=== PATIENT | female | born 1950 | race Caucasian/White ===

== ENCOUNTER → 2017-12-24 16:05 | Outpatient (CLI) | payer MEDICARE, MEDICAID, SELFPAY | PROVIDERS: Family Provider Family Medicine Geriatric Medicine; PCP Family Medicine Geriatric Medicine; Visit Provider Family Medicine Geriatric Medicine | DX: N39.0 Urinary tract infection, site not specified (principal) | CPT/HCPCS: 36415; 87086; 87088 ==

== ENCOUNTER 2018-01-06 11:30 | Observation (INO) | payer MEDICARE, MEDICAID, SELFPAY ==
[2018-01-06] VITALS (14 sets, daily range): BP systolic 150–193; BP diastolic 76–104; PULSE 76–127; RESP 15–20; TEMP 36.6–36.8; O2SAT 94–98; BMI 32.5; BMI 31.9; BMI 32.0
--- NOTE | 2018-01-06 12:09 | EKG12_ITS ---
Test Reason : CP Blood Pressure : / mmHG Vent. Rate : 076 BPM Atrial Rate : 076 BPM P-R Int : 140 ms QRS Dur : 094 ms QT Int : 394 ms P-R-T Axes : 042 -20 073 degrees QTc Int : 443 ms Normal sinus rhythm with sinus arrhythmia T wave abnormality, consider lateral ischemia Abnormal ECG Confirmed by DEON CHRISTIAN, RICHARD ([id number]), digital editor COOPER MARTINEZ ([id number] on 01/09/2018 2:05:44 PM Referred By: NOLBERTO Confirmed By:RICHARD CHAVARRIA MD
[2018-01-06 12:46] LABS: Bedside Glucose 92 mg/dL (70-110)
[2018-01-06] MEDS: 0.9% Normal Saline 1,000 ML 1000 ML IV (13:16)
--- NOTE | 2018-01-06 13:22 | ED.VISSUMM ---
- ER Visit Summary Date of Service: 01/06/18 Chief Complaint: [Dizziness] History of Present Illness: The patient is a 67 F [resents the emergency department with dizziness. She was walking around the store shopping and had 2-3 minutes where she felt like she was about to black out. She had a mild amount of chest pressure during this period but it resolved immediately. No shortness of breath. She is recently been treated with the UTI with prednisone and Keflex. She finished this a few days ago. She is otherwise been feeling well. 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 treated with radiation.] Physical Examination: [] Pressure 159/86 WN WD NAD PERRL EOMI MMM NECK supple and nontender, no masses RRR out of 6 systolic murmur rub or gallop, no peripheral edema, symmetric radial pulses CTAB no respiratory distress ABDOMEN is soft and nontender, normal bowel sounds, no distension, no rebound or guarding SKIN is warm and dry no rashes Alert and Oriented x3, CN II-XII in tact, no motor or sensory deficits, gait normal NIH is 0 No lymphadenopathy Test Results: [] Emergency Department Course and Treatment: [EKG is sinus at a rate of 76 with T-wave inversions in V4 V5 and V6. These are new changes from EKG August 2017. Patient was asymptomatic while she was in the emergency department. Screening blood work shows a leukocytosis at 14.4. She has been on prednisone. It urinary tract appears that it has cleared up. Did call cardiology at the request of the hospitalist who requested a d-dimer which was sent. She was given aspirin.] Treatment Plan: [] Disposition: [Admit] Impression: [1. Chest pain 2. Near syncope] This note was generated with [employer] dictation software. It may contain incorrect words, spelling, and punctuation that were not noted in review of the chart prior to signing ED Disposition - Plan for ED Patient: Chief Complaint: Dizziness
--- NOTE | 2018-01-06 13:25 | ED.DCSUM_ITS ---
- ER Visit Summary Date of Service: 01/06/18 Chief Complaint: [Dizziness] History of Present Illness: The patient is a 67 F [resents the emergency department with dizziness. She was walking around the store shopping and had 2- 3 minutes where she felt like she was about to black out. She had a mild amount of chest pressure during this period but it resolved immediately. No shortness of breath. She is recently been treated with the UTI with prednisone and Keflex. She finished this a few days ago. She is otherwise been feeling well. 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 treated with radiation.] Physical Examination: [] Pressure 159/86 WN WD NAD PERRL EOMI MMM NECK supple and nontender, no masses RRR out of 6 systolic murmur rub or gallop, no peripheral edema, symmetric radial pulses CTAB no respiratory distress ABDOMEN is soft and nontender, normal bowel sounds, no distension, no rebound or guarding SKIN is warm and dry no rashes Alert and Oriented x3, CN II-XII in tact, no motor or sensory deficits, gait normal NIH is 0 No lymphadenopathy Test Results: [] Emergency Department Course and Treatment: [EKG is sinus at a rate of 76 with T- wave inversions in V4 V5 and V6. These are new changes from EKG August 2017. Patient was asymptomatic while she was in the emergency department. Screening blood work shows a leukocytosis at 14.4. She has been on prednisone. It urinary tract appears that it has cleared up. Did call cardiology at the request of the hospitalist who requested a d-dimer which was sent. She was given aspirin.] Treatment Plan: [] Disposition: [Admit] Impression: [1. Chest pain 2. Near syncope] This note was generated with [employer] dictation software. It may contain incorrect words, spelling, and punctuation that were not noted in review of the chart prior to signing ED Disposition - Plan for ED Patient: Chief Complaint: Dizziness
[2018-01-06 13:33] LABS: Absolute Lymphocyte Count 5.37 X10^3/ul (0.83-4.51); Absolute Neutrophil Count 7.8 X10^3/uL (2.0-7.7); Basophil# 0.03 X10^3/uL; Basophil% 0.2 % (0-1); Differential Indicated SCAN CRITERIA MET; Eosinophil# 0.07 X10^3/uL; Eosinophils% 0.5 % (0-5); Hemoglobin 14.6 g/dl (12.0-15.0); Lymphocyte # 5.37 X10^3/ul (4.0); Lymphocyte % 37.3 % (19-41); Mean Corp Hgb Conc 32.4 g/gl (32-36); Mean Corpuscular Hgb 33.2 pg (27.0-32.0); Mean Corpuscular Volume 102.3 fL (81-99); Monocyte# 1.09 X10^3/uL; Monocyte% 7.6 % (0-10); Neutrophil # 7.78 X10^3/uL (2.7-7.7); Neutrophil % 54.1 % (47-70); POSITIVE COUNT NO; POSITIVE DIFFERENTIAL YES; POSITIVE MORPHOLOGY NO; Platelet Count 336 K/mm3 (150-450); RBC Distribution Width SD 52.4 fl (35.1-43.9); White Blood Count 14.4 K/mm3 (4.4-11.0)
[2018-01-06 13:44] LABS: ALB/GLOB Ratio 0.7 RATIO (0.9-2.4); AST(SGOT) 10 U/L (15-37); Alanine Aminotransfer ALT/SGPT 21 U/L (13-56); Albumin, Serum 3.2 g/dL (3.2-5.0); Alkaline Phosphatase 95 U/L (45-117); Anion Gap 8 (5-15); BUN 11 mg/dL (7-18); BUN/Creat Ratio 11.5 RATIO (10-20); Calcium,Total 8.7 mg/dL (8.5-10.1); Chloride 105 mmol/L (98-107); Creatinine, Serum 0.95 mg/dL (0.55-1.02); EST Glomerular Filtration Rate 63 mL/min (>60); Est Glom Filt Rate - Afr Amer 76 mL/min (>60); Estimated Creatinine Clearance 59.56 ml/min; Globulin 4.7 g/dL (2.2-4.2); Glucose 91 mg/dL (74-106); Potassium 3.5 mmol/L (3.5-5.1); Protein, Total 7.9 g/dL (6.4-8.2); Sodium Level 141 mmol/L (136-145)
[2018-01-06 13:57] LABS: Bacteria 0 SEEN /hpf (None Seen); Mucous, Urine 0 SEEN /hpf (<or=2+); White Blood Cells 0 SEEN /hpf (0-5)
[2018-01-06 13:58] LABS: Color, Urine Straw (Yellow); Glucose, Dipstick Normal (Normal); Ketone-Dipstick Negative (Negative); Leukocyte Esterase-Dipstick Negative /ul (Negative); Nitrite-Dipstick Negative (Negative); Occult Blood-Urine 150 /ul (Negative); Protein-Dipstick Negative (Negative); Urine Bilirubin Dipstick Negative (Negative); Urine Clarity Clear (Clear); Urine Urobilinogen Normal (Normal)
[2018-01-06 14:06] LABS: Red Blood Cells-Urine 0-5 SEEN /hpf (0-5); Squamous Epithelial Cells - UA 0-5 SEEN /hpf (5-10)
--- NOTE | 2018-01-06 15:03 | EKG12_ITS ---
Test Reason : REPEAT Blood Pressure : / mmHG Vent. Rate : 074 BPM Atrial Rate : 074 BPM P-R Int : 144 ms QRS Dur : 092 ms QT Int : 390 ms P-R-T Axes : 045 -09 -64 degrees QTc Int : 432 ms Normal sinus rhythm T wave abnormality, consider lateral ischemia Abnormal ECG Confirmed by PUMA KRAUSE ([id number]), city editor COOPER MARTINEZ ([id number]) on 01/10/2018 1:15:25 PM Referred By: JESSICA Confirmed By:PUMA KRAUSE
--- NOTE | 2018-01-06 15:09 | PCM.HP.STD ---
Problem List (1) Chest pain Status: Acute Qualifiers: Ischemic chest pain type: unspecified angina pectoris type (2) HTN (hypertension) Status: Chronic Qualifiers: Hypertension type: essential hypertension Qualified Code(s): I10 - Essential (primary) hypertension History of Present Illness Date of Admission: 01/06/18 Chief Complaint: Chest pain The patient is a 67 year old F past medical history of hypertension, frequent UTI, history of Dunbar's palsy who comes in with complaints of dizziness and feeling of passing out. Patient states that she was out in the stores doing groceries, when she felt waves of dizziness and felt like she was going to pass out. She denied any chest discomfort or palpitations or leg swelling previously to that. This is her first episode of such feeling. She had recently seen her primary care doctor a week ago and was asked to continue her medications for elevated blood pressure. Denies any cardiac history but states she was told she has a heart murmur. Denied any history of orthopnea or PND or recent travel. Just completed a course of antibiotics for UTI and also completed a course of prednisone for unspecified reason, according to patient. Vitals on arrival to the ED showed temperature of 90 8.3F, heart rate of 84, blood pressure was elevated at 193/96, respiratory rate was 16 oxygen saturation was 97% on room air. Her labs show WBC count of 14.4, MCV of 102.3, Hb of 14.6, platelets of 236, her BMP was essentially normal, d-dimer was pending at time of dictating this note. Her EKG showed normal sinus rhythm with nonspecific T-wave inversions in leads III, aVF, V3, V4, V5, V6. Past Medical History Past Medical History (Chronic Problems): Chronic Problems HTN (hypertension) (Chronic) Mild intermittent asthma (Chronic) Allergies pravastatin Allergy (Verified 08/22/17 10:41) Chest tightness sulfamethoxazole [From Bactrim] Allergy (Verified 08/22/17 10:41) Shortness of breath trimethoprim [From Bactrim] Allergy (Verified 08/22/17 10:41) Shortness of breath methylprednisolone Adverse Reaction (Verified 01/06/18 11:32) Pain in joints flu vaccine Allergy (Uncoded 08/22/17 10:41) Other novacaine Allergy (Uncoded 08/22/17 10:41) Unknown Home Medications: Ambulatory Orders Medication Instructions Recorded Albuterol IH (ProAir) [Proair Hfa] 2 puff INHALATION Q6H PRN PRN 09/09/13 Lisinopril [Zestril] 40 mg PO DAILY 02/12/15 Ergocalciferol [Vitamin D] 50,000 unit PO TH 01/06/18 Surgical History: hysterectomy, - - Cholecystectomy. 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 Denies: Chest Pain, Claudication, Chest Pressure, Orthopnea, Palpitations, Paroxysmal Noc. Dyspnea, Syncope Respiratory: Denies: Cough, Shortness of breath at rest, Sputum production Gastrointestinal: Denies: Abdominal Pain, Constipation, Hematemesis, Nausea, Vomiting Genitourinary: Denies: Dysuria, Frequency, Incontinence Gynecological: Denies: Vaginal discharge, Vaginal itching Musculoskeletal: Denies: Joint Pain, Joint stiffness, Joint swelling, Joint Tenderness Skin: Denies: Dryness, Pruritis, Rash, Wounds Neurological: Denies: Difficulty swallowing, Focal weakness, Numbness, Tingling, Tremor Psychiatric: Denies: Anxiety, Depression, Homicidal Ideations, Suicidal Ideations Endocrine: Denies: Change in Body Habitus, Heat/ Cold Intolerance Hematologic/ Lymphatic: Denies: Easy Bruising, Easy Bleeding VTE Information - Inpt Only VTE Present on Admission: No VTE Pharm Prophylaxis ordered?: Yes Patient Problems: Active and Suspected Problems Chest pain (Acute) - Physical Exam General: Alert, Oriented x3, Cooperative, No apparent distress HEENT: Atraumatic, PERRLA, EOMI, Normocephalic Oral: Moist Mucosa Neck: Supple Lungs: Clear to auscultation, Normal air movement Cardiovascular: Regular rate, Regular Rhythm, Normal S1, Normal S2, No murmurs Abdomen: Bowel Sounds Present, Soft, Non Tender, Non-Distended, No Hepato-splenomegaly Extremities: No edema Skin: No rashes, No breakdown Musculoskeletal: No Tenderness to Palpation of Joints or Extremities Lymphatic: No Cervical, Supraclavicular, or Inguinal Adenopathy Neurological: Cranial nerves II-XII grossly intact Psych/Mental Status: Normal Affect, Appropriate Vital Signs Temp Pulse Resp BP Pulse Ox 98.3 F 78 16 150/76 H 96 01/06/18 11:33 01/06/18 14:43 01/06/18 12:54 01/06/18 14:43 01/06/18 14:43 Oxygen Delivery Method Room Air Weight: 97 kg Body Mass Index (BMI) 32.5 Finger Stick Blood Glucose 92 Laboratory Tests Past 24 Hrs 01/06/18 01/06/18 01/06/18 11:55 11:55 13:49 WBC 14.4 H RBC 4.40 Hgb 14.6 Hct 45.0 MCV 102.3 H MCH 33.2 H MCHC 32.4 RDW 14.0 RDW Differential 52.4 H Plt Count 336 MPV 11.0 Immature Gran % (Auto) 0.300 Neut % (Auto) 54.1 Lymph % (Auto) 37.3 Hopkins % (Auto) 7.6 Eos % (Auto) 0.5 Baso % (Auto) 0.2 Absolute Neuts (auto) 7.8 H Absolute Lymphs (auto) 5.37 H Total Counted Not Reportable Differential Comment Sodium 141 Potassium 3.5 Chloride 105 Carbon Dioxide 28.0 Anion Gap 8 BUN 11 Creatinine 0.95 Estim Creat Clear Calc 59.56 Est GFR (MDRD) Af Amer 76 Est GFR (MDRD) Non-Af 63 BUN/Creatinine Ratio 11.5 Glucose 91 Calcium 8.7 Total Bilirubin 0.50 AST 10 L ALT 21 Alkaline Phosphatase 95 Troponin I < 0.02 Total Protein 7.9 Albumin 3.2 Globulin 4.7 H Albumin/Globulin Ratio 0.7 L Urine Color Straw Urine Clarity Clear Urine pH 7.0 Ur Specific Garrett 1.010 Urine Protein Negative Urine Glucose (UA) Normal Urine Ketones Negative Urine Occult Blood 150 H Urine Nitrite Negative Urine Bilirubin Negative Urine Urobilinogen Normal Ur Leukocyte Esterase Negative Urine RBC 0-5 SEEN Urine WBC 0 SEEN Ur Squamous Epith Cells 0-5 SEEN Urine Bacteria 0 SEEN Urine Mucus 0 SEEN POC Glucose 01/06/18 12:39 POC Glucose 92 Assessment/Plan Active and Suspected Problems Chest pain (Acute) 67 year old F past medical history of hypertension, frequent UTI, history of Dunbar's palsy who comes in with complaints of dizziness and feeling of passing out. 1. Dizziness, presyncope, chest discomfort, unclear etiology. Patient's admitting BP was high, labs are normal, EKG shows non-specific changes Plan: To PCU, monitor on telemetry, cycle troponins, cardiology consult, , continue on aspirin, 2D echo, possible stress test if troponins remain negative, recheck orthostatic vitals in am, profile in a.m. HbA1c in a.m. 2. Hypertensive urgency in a known hypertensive, blood pressures uncontrolled, resume blood pressure with as needed hydralazine 3. Leukocytosis, reactive, no source of infection 4. history of recurrent UTIs, recently completed antibiotics, is currently asymptomatic 5. DVT prophylaxis with Lovenox subcu Code Visit OBSV E&M: 99804 Initial observation care L3
[2018-01-06] MEDS: Aspirin 81 MG TAB.CHEW 162 MG PO (15:48)
--- NOTE | 2018-01-06 15:54 | ECHOD_ITS ---
Reason For Study: chest pain Procedure This was a 2D Doppler, Color Flow transthoracic echocardiogram. The study was technically difficult. Due to body habitus. Exam performed portable in patient room. Left Ventricle Normal size and thickness. The estimated ejection fraction is 60 %. Stage 1 diastolic dysfunction. No regional wall motion abnormalities noted. Right Ventricle Normal size and thickness. Normal systolic function. Atria The left atrium is mildly enlarged. Normal right atrium. Normal atrial septum. Mitral Valve The mitral valve is structurally normal. No prolapse or stenosis seen. Tricuspid Valve Normal tricuspid valve. Trivial tricuspid valve insufficiency. Right ventricular systolic pressure estimated to be 22 mmHg. Aortic Valve Trisinus/trileaflet aortic valve. Mild focal aortic valve thickening. Trivial aortic valve insufficiency. Pulmonic Valve Normal pulmonic valve. Trivial pulmonic valve insufficiency. Great Vessels Normal aortic root. Normal arch. Normal inferior vena cava. Inferior vena cava collapse with sniff. Pericardium/Pleural No pericardial effusion. MMode/2D Measurements & Calculations LVIDd: 5.3 cm IVSd: 1.3 cm Ao root diam: 3.2 cm LVIDs: 3.6 cm LVPWd: 1.1 cm LA dimension: 4.0 cm RVDd: 2.8 cm FS: 32.2 % LAV(MOD-bp): 71.9 ml LA A4 area: 23.4 cm2 RA A4 area: 13.9 cm2 LAV(MOD-bp) Indexed: 35.0 ml/m2 LAV(MOD-sp2): 55.6 ml LAV(MOD-sp4): 73.1 ml Doppler Measurements & Calculations MV E max emir: 71.7 cm/sec Lat Peak E' Emir: 7.5 cm/sec Med Peak E' Emir: 7.7 cm/sec MV A max emir: 85.7 cm/sec E/E' lat: 9.6 E/E' med: 9.3 MV E/A: 0.84 Ao V2 max: 141.2 cm/sec LV V1 max: 121.4 cm/sec PA V2 max: 73.2 cm/sec Ao max P.0 mmHg LV V1 max P.9 mmHg TR max emir: 208.8 cm/sec TR max P.4 mmHg Interpretation Summary The estimated ejection fraction is 60 %. Stage 1 diastolic dysfunction. The left atrium is mildly enlarged. Trivial tricuspid valve insufficiency. Right ventricular systolic pressure estimated to be 22 mmHg. Trivial aortic valve insufficiency. The study was technically difficult. There is no comparison study available. Ordering Physician: Joanne Bañuelos Referring Physician: Gerardo García Chi Performed By: Mana Hayward RDCS, RVT
[2018-01-06 16:07] LABS: D-Dimer Quantitative (DVT/PE) 0.63 FEU/ug/m (0.27-0.49)
--- NOTE | 2018-01-06 16:20 | CT_ITS ---
STUDY: CT CHEST WITH CONTRAST REASON FOR EXAM: Female, 67 years old. RECENT UTI, DIZZY, NEAR SYNCOPAL EPISODE TODAY, ELEVATED D-DIMER Technologist Notes RADIATION DOSAGE (If Supplied By Facility): CTDIvol = ( 13.31 ) mGy, DLP = ( 570.70 ) mGycm TECHNIQUE: Transaxial imaging was performed following intravenous administration of 100 ml of Isovue 300 contrast material. Individualized dose optimization techniques were used for this CT. COMPARISON: 8.315 FINDINGS: Stable hypodensity in the left thyroid lobe. Ultrasound could further evaluate. The lungs are normal. There is no demonstrated pleural abnormality. Normal heart and pericardium. Normal mediastinum. Normal hilar regions. Normal enhanced pulmonary arteries. There is atherosclerotic tortuosity of the aortic arch and descending thoracic aorta. Normal osseous structures. There is no demonstrated abnormality of the visualized upper abdomen. CT/Chest WITH Contrast IMPRESSION: Stable hypodensity in the left thyroid lobe. Ultrasound could further evaluate. No demonstrated pulmonary embolism or arterial dissection. Electronically Signed: Torrey Laurent MD at 17:43 EST , Service support ,
[2018-01-06] MEDS: 0.9% NaCl Peripheral Flush Adult/Peds IV (18:35)
[2018-01-06] MEDS: 0.9% Normal Saline 1,000 ML 100 ML IV (18:35)
[2018-01-06] MEDS: Albuterol 2.5 MG/3 ML VIAL.NEB. INHALATION (19:30)
[2018-01-06] MEDS: Metoprolol Tartrate 25 MG Tablet 12.5 MG PO (22:12)
[2018-01-06] MEDS: Atorvastatin Calcium 20 MG Tablet PO (22:14)
[2018-01-07] VITALS (16 sets, daily range): BP systolic 135–158; BP diastolic 68–97; PULSE 72–98; RESP 16–20; TEMP 36.7–36.8; O2SAT 94–98
[2018-01-07 03:16] LABS: Hemoglobin 12.2 g/dl (12.0-15.0); Mean Corp Hgb Conc 32.1 g/gl (32-36); Mean Corpuscular Hgb 33.1 pg (27.0-32.0); Mean Platelet Vol. 10.7 fl (6.2-12.0); Platelet Count 267 K/mm3 (150-450); RBC Distribution Width CV 14.2 % (11.6-14.6); RBC Distribution Width SD 53.1 fl (35.1-43.9); Red Blood Count 3.69 M/mm3 (4.2-5.4); White Blood Count 11.2 K/mm3 (4.4-11.0)
[2018-01-07 03:20] LABS: Prothrombin Time (Protime)PT. 13.2 SECONDS (11.7-14.9)
[2018-01-07 03:21] LABS: Scan Indicated on CBC? Y/N NO
[2018-01-07 03:37] LABS: Anion Gap 7 (5-15); BUN 8 mg/dL (7-18); BUN/Creat Ratio 8.7 RATIO (10-20); Calcium,Total 8.1 mg/dL (8.5-10.1); Chloride 110 mmol/L (98-107); Cholesterol 181 mg/dL (200); Creatinine, Serum 0.92 mg/dL (0.55-1.02); EST Glomerular Filtration Rate 65 mL/min (>60); Est Glom Filt Rate - Afr Amer 79 mL/min (>60); Glucose 94 mg/dL (74-106); High Density Lipoprotein 41 mg/dL; Potassium 3.5 mmol/L (3.5-5.1); Sodium Level 144 mmol/L (136-145); Triglycerides 120 mg/dL; Very Low Density Lipoprotein 24 mg/dL (5-40)
[2018-01-07] MEDS: 0.9% Normal Saline 1,000 ML 100 ML IV ×2 (04:30→16:01)
--- NOTE | 2018-01-07 05:55 | EKG12_ITS ---
Test Reason : AM EKG Blood Pressure : / mmHG Vent. Rate : 073 BPM Atrial Rate : 073 BPM P-R Int : 156 ms QRS Dur : 088 ms QT Int : 398 ms P-R-T Axes : 050 003 -81 degrees QTc Int : 438 ms Normal sinus rhythm T wave abnormality, consider anterolateral ischemia Abnormal ECG When compared with ECG of 06-JAN-2018 15:09, MANUAL COMPARISON REQUIRED, DATA IS UNCONFIRMED Confirmed by PUMA KRAUSE ([id number]), visual effects editor COOPER MARTINEZ ([id number]) on 01/10/2018 3:10:37 PM Referred By: DR LOPEZ Confirmed By:PUMA KRAUSE
[2018-01-07] MEDS: Albuterol 2.5 MG/3 ML VIAL.NEB. INHALATION ×3 (07:02→18:46)
[2018-01-07] MEDS: Aspirin E.C. 81 MG Tablet PO (09:58)
--- NOTE | 2018-01-07 10:12 | US_ITS ---
STUDY: THYROID ULTRASOUND REASON FOR EXAM: Female, 67 years old. Difficulty swallowing TECHNIQUE: Ultrasound evaluation of the thyroid was performed with real-time and static decker-scale imaging. COMPARISON: None. FINDINGS: RIGHT LOBE: The right lobe of the thyroid gland measures 4.4 x 1.5 x 1.7 cm. There is a homogeneous echotexture. There is a tiny 5 mm anechoic cystic lesion compatible with a colloidal cyst. LEFT LOBE: The left lobe of the thyroid gland measures 4.5 x 2.4 x 2.0 cm. There is a homogeneous echotexture. Anechoic cyst of the left mid to lower thyroid lobe measures 3.0 x 2.3 x 1.3 cm. ISTHMUS: The isthmus measures 2.0 mm. The regional lymph nodes are normal. US/Thyroid IMPRESSION: 1. 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 5 mm right colloidal cyst. Electronically Signed: Reji Boss MD at 20:44 EST , Service support ,
[2018-01-07] MEDS: Metoprolol Tartrate 25 MG Tablet 12.5 MG PO ×2 (11:55→23:10)
--- NOTE | 2018-01-07 14:16 | CT_ITS ---
STUDY: CT BRAIN WITHOUT CONTRAST REASON FOR EXAM: Female, 67 years old. Syncope RADIATION DOSAGE (If Supplied By Facility): CTDIvol = ( 44.99 ) mGy, DLP = ( 796.11 ) mGycm TECHNIQUE: Transaxial CT imaging of the brain was performed without administration of intravenous contrast material. Individualized dose optimization techniques were used for this CT. COMPARISON: None. FINDINGS: Normal soft tissue structures. Normal calvarium. Normal size ventricles and extra-axial spaces for the patient's age. Normal white matter tracts of the cerebral hemispheres. Normal basal ganglia and thalami. Normal brainstem. Normal cerebellum. There is no intracranial hemorrhage. There are no findings of an acute ischemic infarction. Normal visualized paranasal sinuses. CT/Brain/Head without Contrast IMPRESSION: Normal unenhanced CT scan of the brain. Electronically Signed: Janes Womack MD at 19:41 EST , Service support ,
--- NOTE | 2018-01-07 14:19 | PCM.CONS.C ---
Reason for Consult Date of Consultation: 01/07/18 History of Present Illness: The patient is a 67 year old F with past medical history significant for hypertension and intermittent asthma. According to the patient, she was at [employer] yesterday with her and was pushing a cart. She started having 'something in my head' and then felt lightheaded and dizzy. There was no vertigo but according to her, everything was wavy. She felt as if she was going to pass out. Her walked her to the car. Symptoms lasted a total of 4 5 minutes and then relieved on its own. She presented to the emergency room where and she was noted to be hypertensive. Some EKG changes were noted. Per patient, during her symptoms she also noticed something in my chest. No palpitations. Shortness of breath. No diaphoresis. According to the patient, she has had similar symptoms but less intense on a couple of previous occasions as well. If no history of syncope. Patient does complain of shortness of breath with moderate to strenuous exertion. [] Past Medical History Allergies/Adverse Reactions: Allergies pravastatin Allergy (Verified 08/22/17 10:41) Chest tightness sulfamethoxazole [From Bactrim] Allergy (Verified 08/22/17 10:41) Shortness of breath trimethoprim [From Bactrim] Allergy (Verified 08/22/17 10:41) Shortness of breath methylprednisolone Adverse Reaction (Verified 01/06/18 11:32) Pain in joints flu vaccine Allergy (Uncoded 08/22/17 10:41) Other novacaine Allergy (Uncoded 08/22/17 10:41) Unknown Home Medications: Ambulatory Orders Medication Instructions Recorded Albuterol IH (ProAir) [Proair Hfa] 2 puff INHALATION Q6H PRN PRN 09/09/13 Lisinopril [Zestril] 40 mg PO DAILY 02/12/15 Ergocalciferol [Vitamin D] 50,000 unit PO TH 01/06/18 Past Medical History (Chronic Problems): Chronic Problems HTN (hypertension) (Chronic) Mild intermittent asthma (Chronic) Surgical History: hysterectomy, - - Cholecystectomy. 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 Denies: Orthopnea, PND, Peripheral Edema, Palpitations Respiratory: Denies: Cough Gastrointestinal: Denies: Indigestion, Heart Burn, Abdominal Discomfort, Jaundice Muscoloskeletal: Denies: Myalgias Neurological: Denies: Dizziness, Vertigo, History of TIA, History of CVA Objective: Vital Signs Temp Pulse Resp BP Pulse Ox 98.0 F 80 18 153/83 H 98 01/07/18 09:56 01/07/18 11:55 01/07/18 10:52 01/07/18 09:56 01/07/18 09:56 Oxygen Delivery Method Room Air Weight: 92.4 kg Body Mass Index (BMI) 31.9 Orthostatic Vital Signs Start: 01/07/18 04:18 Freq: q24h Status: Active Protocol: Activity Type Activity Date Activity User E-Sign Co-Sign Detail Recorded Client Recorded Date Recorded By Document 01/07/18 04:19 [facility] [id number] 01/07/18 04:24 [facility] 01/07/18 04:19 Orthostatic Vitals Standing -Blood Pressure (90/60-120/80 mm Hg) 158/84 H -Extremity Use Left Arm -Pulse Rate (60-100 beats/min) 85 Sitting -Blood Pressure (90/60-120/80 mm Hg) 156/97 H -Extremity Use Left Arm -Pulse Rate (60-100 beats/min) 82 Lying -Blood Pressure (90/60-120/80 mm Hg) 138/81 H -Extremity Use Left Arm -Pulse Rate (60-100 beats/min) 72 Intake and Output for Last 24 Hours 01/05/18 01/06/18 01/07/18 23:59 23:59 23:59 Intake Total 929 / 929 1308 / 1308 Balance 929 / 929 1308 / 1308 General: Healthy Appearing, Awake, Alert, Oriented x 3, No Acute Distress HEENT: Atraumatic Oral: Moist Mucosa Neck: Supple, No JVD Lungs: Clear to auscultation Cardiovascular: Regular Rhythm, Normal S1, Normal S2 Vascular: No Carotid Bruits Abdomen: Bowel Sounds Present, Soft Extremities: No Cyanosis, No edema Neurological: CN II-XII Intact Psych/Mental Status: Appropriate 01/06/18 16:22: Troponin I < 0.02 01/06/18 20:10: Troponin I < 0.02 01/07/18 02:19: WBC 11.2 H, RBC 3.69 L, Hgb 12.2, Hct 38.0, MCV 103.0 H, MCH 33.1 H, MCHC 32.1, RDW 14.2, RDW Differential 53.1 H, Plt Count 267, MPV 10.7 01/07/18 02:19: Sodium 144, Potassium 3.5, Chloride 110 H, Carbon Dioxide 27.0, Anion Gap 7, BUN 8, Creatinine 0.92, Est GFR (MDRD) Af Amer 79, Est GFR (MDRD) Non-Af 65, BUN/Creatinine Ratio 8.7 L, Glucose 94, Calcium 8.1 L, Triglycerides 120, Cholesterol 181, LDL Cholesterol 116, VLDL Cholesterol 24, HDL Cholesterol 41 01/07/18 02:19: Troponin I < 0.02 01/07/18 02:19: PT 13.2, INR 1.0, APTT 27.0 Rhythm: Normal sinus rhythm EKG: Normal sinus rhythm. T-wave inversions in the antral lead lateral leads that could suggest anterolateral ischemia ECHO: Stress Test: Cardiac Cath: PCI: CT Surgery: Holter monitor: EPS: PPM: CXR: Chest CT Scan: Assessment/Plan 1. Presyncope with EKG changes. The EKG changes could be because of cardiac ischemia versus WELLNESS TRAINER related issues. Check CT scan of the head to rule out any pathology. If CT scan of the head is negative, then in view of her symptomatology, recommend cardiac catheterization with coronary angiography and possible revascularization. Risks benefits and alternatives were explained to the patient in detail. She understands these and wishes to proceed. Please note that the patient's LV function is normal on echocardiogram 2. Headache with presyncope. See #[address] scan of the head. 3. Hypertension. Started on metoprolol. Patient was on MATTHIEU inhibitor at home. Resume. Add diuretic regular food. 4. Dyslipidemia. Manage as per internal medicine
--- NOTE | 2018-01-07 14:29 | CON.PCM_ITS ---
Reason for Consult Date of Consultation: 01/07/18 History of Present Illness: The patient is a 67 year old F with past medical history significant for hypertension and intermittent asthma. According to the patient, she was at [employer] yesterday with her and was pushing a cart. She started having 'something in my head' and then felt lightheaded and dizzy. There was no vertigo but according to her, everything was wavy. She felt as if she was going to pass out. Her walked her to the car. Symptoms lasted a total of 4 5 minutes and then relieved on its own. She presented to the emergency room where and she was noted to be hypertensive. Some EKG changes were noted. Per patient, during her symptoms she also noticed something in my chest. No palpitations. Shortness of breath. No diaphoresis. According to the patient, she has had similar symptoms but less intense on a couple of previous occasions as well. If no history of syncope. Patient does complain of shortness of breath with moderate to strenuous exertion. [] Past Medical History Allergies/Adverse Reactions: Allergies pravastatin Allergy (Verified 08/22/17 10:41) Chest tightness sulfamethoxazole [From Bactrim] Allergy (Verified 08/22/17 10:41) Shortness of breath trimethoprim [From Bactrim] Allergy (Verified 08/22/17 10:41) Shortness of breath methylprednisolone Adverse Reaction (Verified 01/06/18 11:32) Pain in joints flu vaccine Allergy (Uncoded 08/22/17 10:41) Other novacaine Allergy (Uncoded 08/22/17 10:41) Unknown Home Medications: Ambulatory Orders Medication Instructions Recorded Albuterol IH (ProAir) [Proair Hfa] 2 puff INHALATION Q6H PRN PRN 09/09/13 Lisinopril [Zestril] 40 mg PO DAILY 02/12/15 Ergocalciferol [Vitamin D] 50,000 unit PO TH 01/06/18 Past Medical History (Chronic Problems): Chronic Problems HTN (hypertension) (Chronic) Mild intermittent asthma (Chronic) Surgical History: hysterectomy, - - Cholecystectomy. Psychiatric History: No pertinent psych hx [place] History: cervical cancer - *Family History Paternal History Items: Heart Disease - at age 32yrs Smoking Status: Former smoker Tobacco Use: Non-smoker Alcohol: None Drugs: None Review of Systems - Review of Systems General: Denies: Fever, Chills, Weight Loss HEENT: Denies: Sinus Drainage Cardiovascular: Reports: Shortness of Breath with Exertion, Lightheadedness, Dizziness, Near Syncope. Denies: Orthopnea, PND, Peripheral Edema, Palpitations Respiratory: Denies: Cough Gastrointestinal: Denies: Indigestion, Heart Burn, Abdominal Discomfort, Jaundice Muscoloskeletal: Denies: Myalgias Neurological: Denies: Dizziness, Vertigo, History of TIA, History of CVA Objective: Vital Signs Temp Pulse Resp BP Pulse Ox 98.0 F 80 18 153/83 H 98 01/07/18 09:56 01/07/18 11:55 01/07/18 10:52 01/07/18 09:56 01/07/18 09:56 Oxygen Delivery Method Room Air Weight: 92.4 kg Body Mass Index (BMI) 31.9 Orthostatic Vital Signs Start: 01/07/18 04:18 Freq: q24h Status: Active Protocol: Activity Type Activity Date Activity User E-Sign Co-Sign Detail Recorded Client Recorded Date Recorded By Document 01/07/18 04:19 [facility] [place] [id number] 01/07/18 04:24 [facility] [place] 01/07/18 04:19 Orthostatic Vitals Standing -Blood Pressure (90/60-120/80 mm Hg) 158/84 H -Extremity Use Left Arm -Pulse Rate (60-100 beats/min) 85 Sitting -Blood Pressure (90/60-120/80 mm Hg) 156/97 H -Extremity Use Left Arm -Pulse Rate (60-100 beats/min) 82 Lying -Blood Pressure (90/60-120/80 mm Hg) 138/81 H -Extremity Use Left Arm -Pulse Rate (60-100 beats/min) 72 Intake and Output for Last 24 Hours 01/05/18 01/06/18 01/07/18 23:59 23:59 23:59 Intake Total 929 / 929 1308 / 1308 Balance 929 / 929 1308 / 1308 General: Healthy Appearing, Awake, Alert, Oriented x 3, No Acute Distress HEENT: Atraumatic Oral: Moist Mucosa Neck: Supple, No JVD Lungs: Clear to auscultation Cardiovascular: Regular Rhythm, Normal S1, Normal S2 Vascular: No Carotid Bruits Abdomen: Bowel Sounds Present, Soft Extremities: No Cyanosis, No edema Neurological: CN II-XII Intact Psych/Mental Status: Appropriate 01/06/18 16:22: Troponin I < 0.02 01/06/18 20:10: Troponin I < 0.02 01/07/18 02:19: WBC 11.2 H, RBC 3.69 L, Hgb 12.2, Hct 38.0, MCV 103.0 H, MCH 33.1 H, MCHC 32.1, RDW 14.2, RDW Differential 53.1 H, Plt Count 267, MPV 10.7 01/07/18 02:19: Sodium 144, Potassium 3.5, Chloride 110 H, Carbon Dioxide 27.0, Anion Gap 7, BUN 8, Creatinine 0.92, Est GFR (MDRD) Af Amer 79, Est GFR (MDRD) Non-Af 65, BUN/Creatinine Ratio 8.7 L, Glucose 94, Calcium 8.1 L, Triglycerides 120, Cholesterol 181, LDL Cholesterol 116, VLDL Cholesterol 24, HDL Cholesterol 41 01/07/18 02:19: Troponin I < 0.02 01/07/18 02:19: PT 13.2, INR 1.0, APTT 27.0 Rhythm: Normal sinus rhythm EKG: Normal sinus rhythm. T-wave inversions in the antral lead lateral leads that could suggest anterolateral ischemia ECHO: Stress Test: Cardiac Cath: PCI: CT Surgery: Holter monitor: EPS: PPM: CXR: Chest CT Scan: Assessment/Plan 1. Presyncope with EKG changes. The EKG changes could be because of cardiac ischemia versus BEAMSTER related issues. Check CT scan of the head to rule out any pathology. If CT scan of the head is negative, then in view of her symptomatology, recommend cardiac catheterization with coronary angiography and possible revascularization. Risks benefits and alternatives were explained to the patient in detail. She understands these and wishes to proceed. Please note that the patient's LV function is normal on echocardiogram 2. Headache with presyncope. See #[address] scan of the head. 3. Hypertension. Started on metoprolol. Patient was on MATTHIEU inhibitor at home. Resume. Add diuretic regular food. 4. Dyslipidemia. Manage as per internal medicine
[2018-01-07] MEDS: Lisinopril 10 MG Tablet PO (16:00)
[2018-01-07] MEDS: HYDROCHLOROTHIAZIDE 12.5 MG CAPSULE PO (16:00)
--- NOTE | 2018-01-07 17:25 | PCM.PN.HOSP ---
Patient Problems: Active and Suspected Problems Chest pain (Acute) Subjective: CC: headache, dizziness She denies any headache or dizziness at this time she complained of chest pressure early on in the day. Vitals/I&O's: Vital Signs Temp Pulse Resp BP Pulse Ox 98.3 F 79 18 135/68 H 96 01/07/18 15:52 01/07/18 15:55 01/07/18 15:52 01/07/18 15:52 01/07/18 15:52 Oxygen Delivery Method Room Air Weight: 92.4 kg Body Mass Index (BMI) 31.9 Orthostatic Vital Signs Start: 01/07/18 04:18 Freq: q24h Status: Active Protocol: Activity Type Activity Date Activity User E-Sign Co-Sign Detail Recorded Client Recorded Date Recorded By Document 01/07/18 04:19 [facility] [place] [id number] 01/07/18 04:24 [facility] [place] 01/07/18 04:19 Orthostatic Vitals Standing -Blood Pressure (90/60-120/80) 158/84 H -Extremity Use Left Arm -Pulse Rate (60-100) 85 Sitting -Blood Pressure (90/60-120/80) 156/97 H -Extremity Use Left Arm -Pulse Rate (60-100) 82 Lying -Blood Pressure (90/60-120/80) 138/81 H -Extremity Use Left Arm -Pulse Rate (60-100) 72 Intake and Output for Last 24 Hours 01/05/18 01/06/18 01/07/18 23:59 23:59 23:59 Intake Total 929 / 929 1308 / 1308 Balance 929 / 929 1308 / 1308 General: Alert, Oriented x3 HEENT: Atraumatic Oral: Moist Mucosa Neck: Supple, No JVD Lungs: Clear to auscultation, No rales Cardiovascular: Regular Rhythm, Normal S1, Normal S2 Abdomen: Bowel Sounds Present, Soft, Non Tender Extremities: No clubbing Musculoskeletal: No Tenderness to Palpation of Joints or Extremities Laboratory Results 01/06/18 20:10: Troponin I < 0.02 01/07/18 02:19: WBC 11.2 H, RBC 3.69 L, Hgb 12.2, Hct 38.0, MCV 103.0 H, MCH 33.1 H, MCHC 32.1, RDW 14.2, RDW Differential 53.1 H, Plt Count 267, MPV 10.7 01/07/18 02:19: Sodium 144, Potassium 3.5, Chloride 110 H, Carbon Dioxide 27.0, Anion Gap 7, BUN 8, Creatinine 0.92, Estim Creat Clear Calc 61.50, Est GFR (MDRD) Af Amer 79, Est GFR (MDRD) Non-Af 65, BUN/Creatinine Ratio 8.7 L, Glucose 94, Calcium 8.1 L, Triglycerides 120, Cholesterol 181, LDL Cholesterol 116, VLDL Cholesterol 24, HDL Cholesterol 41 01/07/18 02:19: Troponin I < 0.02 01/07/18 02:19: PT 13.2, INR 1.0, APTT 27.0 Current Medications Albuterol Sulfate (Ventolin Aerosols) 2.5 mg INHALATION Q4HWA.RT [facility] Last Admin: 01/07/18 14:34 Dose: Not Given Aspirin (Ecotrin) 81 mg PO DAILY@0800 [facility] Last Admin: 01/07/18 09:58 Dose: 81 mg Atorvastatin Calcium (Lipitor) 20 mg PO QHS [facility] Last Admin: 01/06/18 22:14 Dose: 20 mg Bisacodyl (Dulcolax) 5 mg PO DAILY PRN PRN PRN Reason: Constipation Enoxaparin Sodium (Lovenox) 40 mg SC DAILY@1000 [facility] Last Admin: 01/07/18 09:59 Dose: Not Given Ergocalciferol (Vitamin D) 50,000 unit PO TH [facility] Hydralazine HCl (Apresoline) 5 mg IV Q6H PRN PRN PRN Reason: BLOOD PRESSURE Hydrochlorothiazide (Hydrochlorothiazide) 12.5 mg PO DAILY [facility] Last Admin: 01/07/18 16:00 Dose: 12.5 mg Sodium Chloride () 1,000 mls @ 100 mls/hr IV .Q10H [facility] Last Admin: 01/07/18 16:01 Dose: 100 mls/hr Lisinopril (Zestril) 10 mg PO DAILY [facility] Last Admin: 01/07/18 16:00 Dose: 10 mg Magnesium Hydroxide (Milk Of Magnesia) 30 ml PO DAILY PRN PRN Reason: Constipation Melatonin (Melatonin) 3 mg PO QHS PRN PRN Reason: INSOMNIA Metoprolol Tartrate (Lopressor (Beta Neyda)) 12.5 mg PO BID [facility] Last Admin: 01/07/18 11:55 Dose: 12.5 mg Nitroglycerin (Nitrostat) 0.4 mg SUBLINGUAL Q5M PRN PRN Reason: CHEST PAIN Ondansetron HCl (Zofran) 4 mg IV Q6H PRN PRN PRN Reason: NAUSEA/VOMITING Psyllium Hydrophilic Mucilloid (Metamucil) 1 packet PO DAILY PRN PRN PRN Reason: CONSTIPATION Sodium Chloride () 5 - 30 ml IV UD PRN PRN Reason: SALINE FLUSH Last Admin: 01/06/18 18:35 Dose: 10 ml Assessment/Plan Active and Suspected Problems Chest pain (Acute) 1. Dizziness; obtain brain imaging and echocardiogram. 2. Chest pain; cardiology consulted for further ischemic workup. 3. Hypertension; on hydrochlorothiazide, lisinopril and metoprolol. 4. DVT Prophylaxis with Lovenox. Code Visit OBSV E&M: 23530 Initial observation care L3
--- NOTE | 2018-01-07 17:28 | PN_ITS ---
Patient Problems: Active and Suspected Problems Chest pain (Acute) Subjective: CC: headache, dizziness She denies any headache or dizziness at this time she complained of chest pressure early on in the day. Vitals/I&O's: Vital Signs Temp Pulse Resp BP Pulse Ox 98.3 F 79 18 135/68 H 96 01/07/18 15:52 01/07/18 15:55 01/07/18 15:52 01/07/18 15:52 01/07/18 15:52 Oxygen Delivery Method Room Air Weight: 92.4 kg Body Mass Index (BMI) 31.9 Orthostatic Vital Signs Start: 01/07/18 04:18 Freq: q24h Status: Active Protocol: Activity Type Activity Date Activity User E-Sign Co-Sign Detail Recorded Client Recorded Date Recorded By Document 01/07/18 04:19 [facility] [id number] 01/07/18 04:24 [facility] [place]/07/18 04:19 Orthostatic Vitals Standing -Blood Pressure (90/60-120/80) 158/84 H -Extremity Use Left Arm -Pulse Rate (60-100) 85 Sitting -Blood Pressure (90/60-120/80) 156/97 H -Extremity Use Left Arm -Pulse Rate (60-100) 82 Lying -Blood Pressure (90/60-120/80) 138/81 H -Extremity Use Left Arm -Pulse Rate (60-100) 72 Intake and Output for Last 24 Hours 01/05/18 01/06/18 01/07/18 23:59 23:59 23:59 Intake Total 929 / 929 1308 / 1308 Balance 929 / 929 1308 / 1308 General: Alert, Oriented x3 HEENT: Atraumatic Oral: Moist Mucosa Neck: Supple, No JVD Lungs: Clear to auscultation, No rales Cardiovascular: Regular Rhythm, Normal S1, Normal S2 Abdomen: Bowel Sounds Present, Soft, Non Tender Extremities: No clubbing Musculoskeletal: No Tenderness to Palpation of Joints or Extremities Laboratory Results 01/06/18 20:10: Troponin I < 0.02 01/07/18 02:19: WBC 11.2 H, RBC 3.69 L, Hgb 12.2, Hct 38.0, MCV 103.0 H, MCH 33.1 H, MCHC 32.1, RDW 14.2, RDW Differential 53.1 H, Plt Count 267, MPV 10.7 01/07/18 02:19: Sodium 144, Potassium 3.5, Chloride 110 H, Carbon Dioxide 27.0, Anion Gap 7, BUN 8, Creatinine 0.92, Estim Creat Clear Calc 61.50, Est GFR (MDRD ) Af Amer 79, Est GFR (MDRD) Non-Af 65, BUN/Creatinine Ratio 8.7 L, Glucose 94, Calcium 8.1 L, Triglycerides 120, Cholesterol 181, LDL Cholesterol 116, VLDL Cholesterol 24, HDL Cholesterol 41 01/07/18 02:19: Troponin I < 0.02 01/07/18 02:19: PT 13.2, INR 1.0, APTT 27.0 Current Medications Albuterol Sulfate (Ventolin Aerosols) 2.5 mg INHALATION Q4HWA.RT [facility] Last Admin: 01/07/18 14:34 Dose: Not Given Aspirin (Ecotrin) 81 mg PO DAILY@0800 [facility] Last Admin: 01/07/18 09:58 Dose: 81 mg Atorvastatin Calcium (Lipitor) 20 mg PO QHS [facility] Last Admin: 01/06/18 22:14 Dose: 20 mg Bisacodyl (Dulcolax) 5 mg PO DAILY PRN PRN PRN Reason: Constipation Enoxaparin Sodium (Lovenox) 40 mg SC DAILY@1000 [facility] Last Admin: 01/07/18 09:59 Dose: Not Given Ergocalciferol (Vitamin D) 50,000 unit PO TH [facility] Hydralazine HCl (Apresoline) 5 mg IV Q6H PRN PRN PRN Reason: BLOOD PRESSURE Hydrochlorothiazide (Hydrochlorothiazide) 12.5 mg PO DAILY [facility] Last Admin: 01/07/18 16:00 Dose: 12.5 mg Sodium Chloride () 1,000 mls @ 100 mls/hr IV .Q10H [facility] Last Admin: 01/07/18 16:01 Dose: 100 mls/hr Lisinopril (Zestril) 10 mg PO DAILY [facility] Last Admin: 01/07/18 16:00 Dose: 10 mg Magnesium Hydroxide (Milk Of Magnesia) 30 ml PO DAILY PRN PRN Reason: Constipation Melatonin (Melatonin) 3 mg PO QHS PRN PRN Reason: INSOMNIA Metoprolol Tartrate (Lopressor (Beta Neyda)) 12.5 mg PO BID [facility] Last Admin: 01/07/18 11:55 Dose: 12.5 mg Nitroglycerin (Nitrostat) 0.4 mg SUBLINGUAL Q5M PRN PRN Reason: CHEST PAIN Ondansetron HCl (Zofran) 4 mg IV Q6H PRN PRN PRN Reason: NAUSEA/VOMITING Psyllium Hydrophilic Mucilloid (Metamucil) 1 packet PO DAILY PRN PRN PRN Reason: CONSTIPATION Sodium Chloride () 5 - 30 ml IV UD PRN PRN Reason: SALINE FLUSH Last Admin: 01/06/18 18:35 Dose: 10 ml Assessment/Plan Active and Suspected Problems Chest pain (Acute) 1. Dizziness; obtain brain imaging and echocardiogram. 2. Chest pain; cardiology consulted for further ischemic workup. 3. Hypertension; on hydrochlorothiazide, lisinopril and metoprolol. 4. DVT Prophylaxis with Lovenox. Code Visit OBSV E&M: 60482 Initial observation care L3
[2018-01-07] MEDS: Atorvastatin Calcium 20 MG Tablet PO (23:10)
[2018-01-08] VITALS (16 sets, daily range): BP systolic 139–162; BP diastolic 75–101; PULSE 69–87; RESP 14–18; TEMP 36–36.7; O2SAT 94–97
[2018-01-08] MEDS: 0.9% Normal Saline 1,000 ML 100 ML IV (02:09)
--- NOTE | 2018-01-08 04:00 | RAD_ITS ---
STUDY: X-RAY CHEST REASON FOR EXAM: Female, 67 years old. Heart catheter TECHNIQUE: Single frontal view of the chest. COMPARISON: 09/17/2013 FINDINGS: The lungs are clear and expanded. There is no demonstrated pleural abnormality. Normal size heart. Normal mediastinum and wayne. Normal visualized pulmonary arteries. Normal visualized aortic arch and descending thoracic aorta. Normal visualized thoracic spine. Normal visualized ribs, clavicles, and shoulders. There is no demonstrated abnormality of the visualized soft tissue structures of the upper abdomen. RAD/Chest 1 View (Portable) IMPRESSION: Normal x-ray examination of the chest. Electronically Signed: Agustin Winslow MD at 6:18 EST Tel , Service support ,
[2018-01-08 05:24] LABS: Partial Thromboplast Time 26.5 Seconds (24.1-36.2); Prothrombin Time (Protime)PT. 13.2 SECONDS (11.7-14.9)
[2018-01-08 05:30] LABS: Anion Gap 7 (5-15); BUN 9 mg/dL (7-18); BUN/Creat Ratio 10.6 RATIO (10-20); Calcium,Total 8.2 mg/dL (8.5-10.1); Chloride 110 mmol/L (98-107); Creatinine, Serum 0.85 mg/dL (0.55-1.02); EST Glomerular Filtration Rate 72 mL/min (>60); Est Glom Filt Rate - Afr Amer 87 mL/min (>60); Estimated Creatinine Clearance 66.56 ml/min; Glucose 97 mg/dL (74-106); Potassium 3.8 mmol/L (3.5-5.1); Sodium Level 142 mmol/L (136-145)
[2018-01-08] MEDS: Aspirin E.C. 81 MG Tablet PO (05:35)
[2018-01-08] MEDS: Metoprolol Tartrate 25 MG Tablet 12.5 MG PO (05:35)
[2018-01-08] MEDS: Lisinopril 10 MG Tablet PO (05:36)
[2018-01-08 05:44] LABS: Absolute Lymphocyte Count 4.64 X10^3/ul (0.83-4.51); Absolute Neutrophil Count 6.4 X10^3/uL (2.0-7.7); Basophil# 0.03 X10^3/uL; Basophil% 0.2 % (0-1); Eosinophil# 0.19 X10^3/uL; Eosinophils% 1.5 % (0-5); Hematocrit 39.3 % (37-47); Hemoglobin 12.5 g/dl (12.0-15.0); Lymphocyte # 4.64 X10^3/ul (4.0); Lymphocyte % 37.8 % (19-41); Mean Corp Hgb Conc 31.8 g/gl (32-36); Mean Corpuscular Hgb 32.7 pg (27.0-32.0); Mean Corpuscular Volume 102.9 fL (81-99); Mean Platelet Vol. 10.8 fl (6.2-12.0); Monocyte% 8.2 % (0-10); Neutrophil # 6.38 X10^3/uL (2.7-7.7); Neutrophil % 52.1 % (47-70); Platelet Count 248 K/mm3 (150-450); RBC Distribution Width CV 14.1 % (11.6-14.6); Red Blood Count 3.82 M/mm3 (4.2-5.4); White Blood Count 12.3 K/mm3 (4.4-11.0)
[2018-01-08 05:45] LABS: POSITIVE COUNT NO; POSITIVE DIFFERENTIAL NO; POSITIVE MORPHOLOGY NO
--- NOTE | 2018-01-08 05:55 | EKG12_ITS ---
Test Reason : AM EKG Blood Pressure : / mmHG Vent. Rate : 073 BPM Atrial Rate : 073 BPM P-R Int : 150 ms QRS Dur : 086 ms QT Int : 390 ms P-R-T Axes : 045 014 -55 degrees QTc Int : 429 ms Normal sinus rhythm T wave abnormality, consider lateral ischemia Abnormal ECG When compared with ECG of 07-JAN-2018 05:34, MANUAL COMPARISON REQUIRED, DATA IS UNCONFIRMED Confirmed by PUMA KRAUSE ([id number]), editor newspaper COOPER MARTINEZ ([id number]) on 01/10/2018 3:17:15 PM Referred By: DR MICHAELS Confirmed By:PUMA KRAUSE
[2018-01-08] MEDS: Albuterol 2.5 MG/3 ML VIAL.NEB. INHALATION ×2 (07:01→14:22)
[2018-01-08] MEDS: 0.9% NaCl Peripheral Flush Adult/Peds IV (08:54)
[2018-01-08] MEDS: TICAGRELOR 90 MG TABLET 180 MG PO (08:54)
--- NOTE | 2018-01-08 10:08 | CASEMGMT ---
This RN CM to room to complete BURGER form at this time and pt is out of the department getting heart cath at this time. Will attempt again later. Delio OCONNELL CM
[2018-01-08] MEDS: 0.9% Normal Saline 1,000 ML 75 ML IV (10:39)
[2018-01-08] MEDS: HYDROCHLOROTHIAZIDE 12.5 MG CAPSULE PO (11:33)
--- NOTE | 2018-01-08 12:12 | CASEMGMT ---
This RN CM to room with BURGER form at this time. Explanation of BURGER form at this time, pt voices understanding and signs at this time. Pt voices no further questions/concerns at this time. Original to chart and copy to pt and at this time. SStaten ANISH KIRKPATRICK
--- NOTE | 2018-01-08 13:22 | PCM.PN.CARD ---
Subjectve: The patient is now status post diagnostic cardiac catheterization. She was found to have no angiographically significant appearing CAD and overall preserved left ventricular wall motion and systolic function. Objective: Vital Signs Temp Pulse Resp BP Pulse Ox 97.9 F 79 14 160/83 H 96 01/08/18 11:30 01/08/18 12:00 01/08/18 12:00 01/08/18 12:00 01/08/18 12:00 Oxygen Delivery Method Room Air Weight: 209 lb 14.081 oz Body Mass Index (BMI) 31.9 Orthostatic Vital Signs Start: 01/07/18 04:18 Freq: q24h Status: Active Protocol: Activity Type Activity Date Activity User E-Sign Co-Sign Detail Recorded Client Recorded Date Recorded By Document 01/08/18 05:30 [facility] [id number] 01/08/18 05:34 [facility] 01/08/18 05:30 Orthostatic Vitals Standing -Blood Pressure (90/60-120/80) 157/75 H -Extremity Use Left Arm -Pulse Rate (60-100) 86 Sitting -Blood Pressure (90/60-120/80) 157/95 H -Extremity Use Left Arm -Pulse Rate (60-100) 87 Lying -Blood Pressure (90/60-120/80) 147/87 H -Extremity Use Left Arm -Pulse Rate (60-100) 80 Intake and Output for Last 24 Hours 01/06/18 01/07/18 01/08/18 23:59 23:59 23:59 Intake Total 929 / 929 3283 / 3283 749 / 749 Balance 929 / 929 3283 / 3283 749 / 749 General: Awake, Alert, Oriented x 3, Cooperative, No Acute Distress Neck: No JVD Lungs: Clear to auscultation Cardiovascular: Regular Rhythm, Normal S1, Normal S2 Vascular: Normal Femoral Pulses Abdomen: Bowel Sounds Present, Soft, Non Tender Extremities: No edema 01/08/18 05:04: WBC 12.3 H, RBC 3.82 L, Hgb 12.5, Hct 39.3, MCV 102.9 H, MCH 32.7 H, MCHC 31.8 L, RDW 14.1, RDW Differential 53.0 H, Plt Count 248, MPV 10.8, Immature Gran % (Auto) 0.200, Neut % (Auto) 52.1, Lymph % (Auto) 37.8, [place] % (Auto) 8.2, Eos % (Auto) 1.5, Baso % (Auto) 0.2, Absolute Neuts (auto) 6.4, Total Counted Not Reportable 01/08/18 05:04: Sodium 142, Potassium 3.8, Chloride 110 H, Carbon Dioxide 25.0, Anion Gap 7, BUN 9, Creatinine 0.85, Est GFR (MDRD) Af Amer 87, Est GFR (MDRD) Non-Af 72, BUN/Creatinine Ratio 10.6, Glucose 97, Calcium 8.2 L 01/08/18 05:04: PT 13.2, INR 1.0, APTT 26.5 Rhythm: Sinus rhythm EKG: Sinus rhythm; T-wave abnormality; consider anterolateral myocardial ischemia Cardiac Cath: Please see official report Assessment/Plan 1. Chest pain The patient did experience chest discomfort. She did have an abnormal ECG suggestive of ongoing myocardial ischemia. She had no other obvious explanation to explain her symptoms or her ECG changes. She was recommended for further evaluation with diagnostic cardiac catheterization by Dr. Miller. This procedure was completed. She had no angiographically significant CAD. Her left ventricular wall motion and systolic function was preserved. Thus she needs to be considered for a non-CAD etiology of her chest discomfort. 2. Abnormal ECG She does have abnormal ECG as noted above. As it does not appear it is related to atherosclerotic coronary artery disease there may be a concern as to whether or not her ECG changes are related to her history of hypertension. Thus would be reasonable to continue antihypertensive therapy and attempt to bring her blood pressure under better control. 3. Hypertension Her blood pressures have been elevated. Her medications will be adjusted in attempt to bring her blood pressures under better control. 4. Hyperlipidemia He should continue lipid-lowering therapy to assist with her cardiovascular risk factors. Otherwise, she will need to continue further evaluation by internal medicine for her symptoms which appear to be non-CAD related. Comment: The above has been discussed and reviewed the patient and her family members present. This note was generated with [employer] software. It may contain incorrect words, spelling, and punctuation that were not noted in checking the note before signing.
--- NOTE | 2018-01-08 13:26 | PN.CARD_ITS ---
Subjectve: The patient is now status post diagnostic cardiac catheterization. She was found to have no angiographically significant appearing CAD and overall preserved left ventricular wall motion and systolic function. Objective: Vital Signs Temp Pulse Resp BP Pulse Ox 97.9 F 79 14 160/83 H 96 01/08/18 11:30 01/08/18 12:00 01/08/18 12:00 01/08/18 12:00 01/08/18 12:00 Oxygen Delivery Method Room Air Weight: 209 lb 14.081 oz Body Mass Index (BMI) 31.9 Orthostatic Vital Signs Start: 01/07/18 04:18 Freq: q24h Status: Active Protocol: Activity Type Activity Date Activity User E-Sign Co-Sign Detail Recorded Client Recorded Date Recorded By Document 01/08/18 05:30 [facility] [id number] 01/08/18 05:34 [facility] 01/08/18 05:30 Orthostatic Vitals Standing -Blood Pressure (90/60-120/80) 157/75 H -Extremity Use Left Arm -Pulse Rate (60-100) 86 Sitting -Blood Pressure (90/60-120/80) 157/95 H -Extremity Use Left Arm -Pulse Rate (60-100) 87 Lying -Blood Pressure (90/60-120/80) 147/87 H -Extremity Use Left Arm -Pulse Rate (60-100) 80 Intake and Output for Last 24 Hours 01/06/18 01/07/18 01/08/18 23:59 23:59 23:59 Intake Total 929 / 929 3283 / 3283 749 / 749 Balance 929 / 929 3283 / 3283 749 / 749 General: Awake, Alert, Oriented x 3, Cooperative, No Acute Distress Neck: No JVD Lungs: Clear to auscultation Cardiovascular: Regular Rhythm, Normal S1, Normal S2 Vascular: Normal Femoral Pulses Abdomen: Bowel Sounds Present, Soft, Non Tender Extremities: No edema 01/08/18 05:04: WBC 12.3 H, RBC 3.82 L, Hgb 12.5, Hct 39.3, MCV 102.9 H, MCH 32.7 H, MCHC 31.8 L, RDW 14.1, RDW Differential 53.0 H, Plt Count 248, MPV 10.8 , Immature Gran % (Auto) 0.200, Neut % (Auto) 52.1, Lymph % (Auto) 37.8, [place] % (Auto) 8.2, Eos % (Auto) 1.5, Baso % (Auto) 0.2, Absolute Neuts (auto) 6.4, Total Counted Not Reportable 01/08/18 05:04: Sodium 142, Potassium 3.8, Chloride 110 H, Carbon Dioxide 25.0, Anion Gap 7, BUN 9, Creatinine 0.85, Est GFR (MDRD) Af Amer 87, Est GFR (MDRD) Non-Af 72, BUN/Creatinine Ratio 10.6, Glucose 97, Calcium 8.2 L 01/08/18 05:04: PT 13.2, INR 1.0, APTT 26.5 Rhythm: Sinus rhythm EKG: Sinus rhythm; T-wave abnormality; consider anterolateral myocardial ischemia Cardiac Cath: Please see official report Assessment/Plan 1. Chest pain The patient did experience chest discomfort. She did have an abnormal ECG suggestive of ongoing myocardial ischemia. She had no other obvious explanation to explain her symptoms or her ECG changes. She was recommended for further evaluation with diagnostic cardiac catheterization by Dr. Miller. This procedure was completed. She had no angiographically significant CAD. Her left ventricular wall motion and systolic function was preserved. Thus she needs to be considered for a non-CAD etiology of her chest discomfort. 2. Abnormal ECG She does have abnormal ECG as noted above. As it does not appear it is related to atherosclerotic coronary artery disease there may be a concern as to whether or not her ECG changes are related to her history of hypertension. Thus would be reasonable to continue antihypertensive therapy and attempt to bring her blood pressure under better control. 3. Hypertension Her blood pressures have been elevated. Her medications will be adjusted in attempt to bring her blood pressures under better control. 4. Hyperlipidemia He should continue lipid-lowering therapy to assist with her cardiovascular risk factors. Otherwise, she will need to continue further evaluation by internal medicine for her symptoms which appear to be non-CAD related. Comment: The above has been discussed and reviewed the patient and her family members present. This note was generated with [employer] software. It may contain incorrect words, spelling, and punctuation that were not noted in checking the note before signing.
--- NOTE | 2018-01-08 14:03 | PCM.DC ---
- Discharge Diagnoses Current Active Problems: Current Active and Chronic Problems Chest pain (Acute) Discharge Activity: Return to Normal Activity Instructions: ED Chest Pain NonCardiac Allergies/Adverse Reactions: Allergies pravastatin Allergy (Verified 08/22/17 10:41) Chest tightness sulfamethoxazole [From Bactrim] Allergy (Verified 08/22/17 10:41) Shortness of breath trimethoprim [From Bactrim] Allergy (Verified 08/22/17 10:41) Shortness of breath methylprednisolone Adverse Reaction (Verified 01/06/18 11:32) Pain in joints flu vaccine Allergy (Uncoded 08/22/17 10:41) Other novacaine Allergy (Uncoded 08/22/17 10:41) Unknown Medications to take at Discharge Lisinopril [Zestril] 40 mg PO DAILY 02/12/15 Ergocalciferol [Vitamin D] 50,000 unit PO TH 01/06/18 Aspirin E.C. [Ecotrin] 81 mg PO DAILY@0800 tablet 01/08/18 Primary Care Physician: Gerardo García Chi, MD [Primary Care Provider] - Within 2 Weeks Proposed Discharge Date: 01/08/18
--- NOTE | 2018-01-08 14:05 | PCM.DC.SUM ---
Discharge Date and Diagnosis Date of Admission: 01/06/18 Date of Discharge: 01/08/18 - Primary Discharge Diagnosis Active and Suspected Problems Chest pain (Acute) - Secondary Discharge Diagnosis Chronic Problems HTN (hypertension) (Chronic) Mild intermittent asthma (Chronic) Hospital Course and Treatment Summary of Care Provided: The patient is a 67 F [resents the emergency department with dizziness. She was walking around the store shopping and had 2-3 minutes where she felt like she was about to black out. She had a mild amount of chest pressure during this period but it resolved immediately. No shortness of breath. Was evaluated in the emergency room and then admitted to the hospital for further management. CT scan of her brain was unremarkable. Based on her symptoms cardiology was consulted and she was recommended left heart catheterization that showed normal coronaries. Her symptoms of dizziness resolved prior to her discharge , we maintained on her lisinopril dose and recommended that he follows up with her primary care physician. HCTZ was however discontinued. Discharge Diet: No Restrictions Discharge Activity: Return to Normal Activity Home Medications: Medications to take at Discharge Lisinopril [Zestril] 40 mg PO DAILY 02/12/15 Ergocalciferol [Vitamin D] 50,000 unit PO TH 01/06/18 Aspirin E.C. [Ecotrin] 81 mg PO DAILY@0800 tablet 01/08/18 Primary Care Physician: Gerardo García Chi, MD [Primary Care Provider] - Within 2 Weeks Patient Instructions: ED Chest Pain NonCardiac Disposition: Home Patient Condition:: Good Meaningful Use Info Meaningful Use Diagnoses (Choose all that apply): None applicable Code Visit Inpatient E&M: 72264 Disch Hosp
--- NOTE | 2018-01-08 20:49 | CL.D_ITS ---
Patient Name: NNEKA HERRERA Study Date: 01/08/2018 Performing: Reji Patrick MD Ht: 68 inches 173 cm : 1950 Wt: 203.1 lbs 92 kg Age: 67 Gender: female BSA: 2.06 PROCEDURE(S) PERFORMED CF13-QKM/COR/LV CLINICAL PROFILE AND INDICATIONS INDICATIONS: Chest-Pain syndrome of unclear etiology Stress/Imaging Stress/Image Study Performed: No Angina Classification Anginal Classification w/in 2 Weeks: CCS IV CAD Presentations: Other: Chest-Pain syndrome of unclear etiology CONCLUSIONS Normal Left Ventricular End Diastolic Pressure Normal LV size, wall motion,and systolic function LVEF: by LV gram 65 % Normal coronary arteries RECOMMENDATIONS Risk factor modification Medical therapy Follow up with primary care physician DESCRIPTION OF PROCEDURE The patient arrived to the procedure lab. The risks and benefits of the procedure as well as a full d escription of our services here and current unavailability of surgical backup were fully explained to the patient and/or their significant other prior to the catheterization. The Timeout was completed, verifying the correct patient and procedure. The patient's procedural site was prepped and draped in the usual fashion. Local anesthetic was given subcutaneously to right groin region with Lidocaine 2%. Using a modified Seldinger technique, arterial access was obtained via the right femoral artery, a 4 Fr sheath was inserted Left Coronary Artery selective angiography was performed in multiple views us ing a 4 Fr. JL5 catheter. Right Coronary Artery selective angiography was then performed in multiple views using a 4 Fr. 3DRC catheter. Left Ventriculography was performed in FUENTES projection using a 4 Fr . Pigtail catheter. LV to AO pullback pressures were then recorded.The arterial sheath was pulled and manual compression applied until hemostasis is achieved. CORONARY ANGIOGRAPHY DOMINANCE: Right Dominant LEFT HEART ASSESSMENT Left Ventricular Ejection Fraction: by LV Gram 65 % Normal LV wall motion Normal Left Ventricular End Diastolic Pressure LVEDP: 10 mmHg LEFT MAIN: Angiographically normal LEFT ANTERIOR DECENDING ARTERY: Angiographically normal CIRCUMFLEX ARTERY: Angiographically normal RIGHT CORONARY ARTERY: Angiographically normal VALVE FINDINGS: Normal Aortic Valve function Normal Mitral Valve function AORTIC ROOT: Angiographically normal COMPLICATIONS No Complications PROCEDURE MEDICATIONS Oxygen: 2 L/min via nasal cannula SUMMARY OF HEMODYNAMIC DATA Time AIR REST ECG 09:40:00 AO 141/94 (117) SA 10:02:57 LV 173/-10, 22 10:08:33 LV 156/-14, 9 10:08:40 LV 158/-15, 10 10:09:35 LVp 153/-16, 8 10:09:47 AOp 164/80 (114) 10:09:52 Signed By Reji Patrick MD On 01/08/2018 20:48:47 Reji Patrick MD
== END 2018-01-08 15:08 | disposition home or self-care (01) ==
LOC: ED 13:33 → PCU 15:14
PROVIDERS: Internal Medicine Cardiovascular Disease; Admitting Provider Internal Medicine; Emergency Provider Emergency Medicine; Family Provider Family Medicine Geriatric Medicine; PCP Family Medicine Geriatric Medicine; Visit Provider Internal Medicine
DX: R07.89 Other chest pain (principal); R42 Dizziness and giddiness; I10 Essential (primary) hypertension; J45.20 Mild intermittent asthma, uncomplicated; Z85.41 Personal history of malignant neoplasm of cervix uteri; Z92.3 Personal history of irradiation; Z87.891 Personal history of nicotine dependence; Z79.899 Other long term (current) drug therapy; R55 Syncope and collapse; E78.5 Hyperlipidemia, unspecified; R94.31 Abnormal electrocardiogram [ECG] [EKG]; Z87.440 Personal history of urinary (tract) infections
CPT/HCPCS: 36415; 70450; 71045; 71260; 76536; 80048; 80053; 80061; 81001; 82962; 84484; 85025; 85027; 85379; 85610; 85730; 93005; 93306; 93458; 94640; 96360; 96361; 99218; 99285; J7030; Q9967; A4216; C1769; C1894; G0378

== ENCOUNTER → 2018-03-08 09:29 | Outpatient (CLI) | payer MEDICARE, MEDICAID, SELFPAY | PROVIDERS: Family Provider Family Medicine Geriatric Medicine; PCP Family Medicine Geriatric Medicine; Visit Provider Family Medicine Geriatric Medicine | DX: N39.0 Urinary tract infection, site not specified (principal) | CPT/HCPCS: 87086; 87088 ==

== ENCOUNTER → 2018-03-12 18:43 | Outpatient (CLI) | payer MEDICARE, SELFPAY ==
--- NOTE | 2018-03-12 | TISS_PTH ---
PATIENT: TODD HERRERA LOC: [facility] U#:[id number] AGE/SX: 75/F ROOM: RE03/12/[address]: Gerardo García MD : 1950 BED: DIS: SPEC #: [id number] RECD: 03/12/18 18:42 STATUS: ISATU REQ #: [id number] ZOE: 03/12/18 00:[address]: Gerardo García Chi DEPT: SURGICAL PATHOLOGY RECD BY: Bree Simpson ENTERED: 03/13/18 09:29 SP TYPE: Tissue Bx ADAM DR: Dr. Gerardo García MD Tissues: A - Skin of face, NOS B - Skin of arm Procedures: Surgery Specimen Level IV Comments: @ Originally on account #[id number] Req #[id number] @ Originally on account #[id number] Req #[id number] HEADER OPERATION: Not noted PRE-OP DIAGNOSIS: L98.9, 709.9 TISSUE SUBMITTED: A. Left cheek tissue, B. Right arm tissue MICROSCOPIC DIAGNOSIS A. Skin lesion of left cheek, biopsy: Actinic keratosis with focal moderate dysplasia. B. Skin lesion of right upper arm, shave biopsy: Actinic change and extensive solar elastosis. Focal hyperkeratosis and parakeratosis. AM:savana 03/14/18 MICROSCOPIC DESCRIPTION Slides are reviewed. GROSS DESCRIPTION A - Received in fixative is one container labeled with the patient's name and designated left cheek. The specimen consists of an irregular fragment of miller tissue measuring 0.5 x 0.3 x 0.2 cm. The specimen is totally submitted in one cassette. B - Received in fixative is one container labeled with the patient's name and designated right upper arm. The specimen consists of a light miller shave biopsy of skin measuring 0.8 x 0.8 x <0.1 cm. The specimen is inked, sectioned and totally submitted in one cassette. / AM:savana 03/13/18 TC:5 CPT: 10332
== END ==
PROVIDERS: Family Provider Family Medicine Geriatric Medicine; PCP Family Medicine Geriatric Medicine; Visit Provider Family Medicine Geriatric Medicine
DX: L98.9 Disorder of the skin and subcutaneous tissue, unspecified (principal)
CPT/HCPCS: 88305

== ENCOUNTER → 2018-04-25 16:57 | Outpatient (CLI) | payer MEDICARE, SELFPAY ==
--- NOTE | 2018-04-25 16:57 | DT_ITS ---
This patient was seen during an EMR downtime April 22, 2018 - April 29, 2018. This patient may have a combination of paper and electronic documentation or all paper documentation. All documentation is viewable within the e-chart portion of [facility] for each patient visit.
== END ==
PROVIDERS: Family Provider Family Medicine Geriatric Medicine; PCP Family Medicine Geriatric Medicine; Visit Provider Family Medicine Geriatric Medicine
DX: R50.9 Fever, unspecified (principal)
CPT/HCPCS: 87633

== ENCOUNTER → 2018-07-24 16:08 | Outpatient (CLI) | payer MEDICARE, SELFPAY ==
[2018-07-24 17:37] LABS: Vitamin D,25 Hydroxy 23.6 ng/mL (29.95-100.01)
[2018-07-24 17:49] LABS: ALB/GLOB Ratio 0.6 RATIO (0.9-2.4); AST(SGOT) 19 U/L (15-37); Alanine Aminotransfer ALT/SGPT 21 U/L (13-56); Alkaline Phosphatase 96 U/L (45-117); Anion Gap 12 (5-15); BUN 6 mg/dL (7-18); BUN/Creat Ratio 5.9 RATIO (10-20); Calcium,Total 8.8 mg/dL (8.5-10.1); Chloride 105 mmol/L (98-107); Creatinine, Serum 1.02 mg/dL (0.55-1.02); EST Glomerular Filtration Rate 58 mL/min (>60); Est Glom Filt Rate - Afr Amer 70 mL/min (>60); Globulin 4.8 g/dL (2.2-4.2); Glucose 92 mg/dL (74-106); Potassium 3.5 mmol/L (3.5-5.1); Protein, Total 7.8 g/dL (6.4-8.2); Sodium Level 142 mmol/L (136-145); Thyroid Stim Hormone (TSH) 1.51 uIU/mL (0.358-3.74)
[2018-07-24 19:54] LABS: Absolute Lymphocyte Count 5.21 X10^3/ul (0.83-4.51); Absolute Neutrophil Count 7.6 X10^3/uL (2.0-7.7); Basophil# 0.04 X10^3/uL; Basophil% 0.3 % (0-1); Eosinophil# 0.07 X10^3/uL; Eosinophils% 0.5 % (0-5); Hematocrit 42.1 % (37-47); Hemoglobin 13.9 g/dl (12.0-15.0); Lymphocyte # 5.21 X10^3/ul (4.0); Lymphocyte % 37.6 % (19-41); Mean Corpuscular Hgb 31.8 pg (27.0-32.0); Mean Corpuscular Volume 96.3 fL (81-99); Mean Platelet Vol. 11.1 fl (6.2-12.0); Monocyte# 0.91 X10^3/uL; Monocyte% 6.6 % (0-10); Neutrophil # 7.58 X10^3/uL (2.7-7.7); Neutrophil % 54.7 % (47-70); Platelet Count 398 K/mm3 (150-450); RBC Distribution Width CV 13.9 % (11.6-14.6); RBC Distribution Width SD 47.4 fl (35.1-43.9); Red Blood Count 4.37 M/mm3 (4.2-5.4); White Blood Count 13.9 K/mm3 (4.4-11.0)
[2018-07-24 20:00] LABS: Differential Indicated SCAN CRITERIA MET; POSITIVE COUNT NO; POSITIVE DIFFERENTIAL YES; POSITIVE MORPHOLOGY NO
[2018-07-25 14:33] LABS: Pathologist Review Reviewed
== END ==
PROVIDERS: Family Provider Family Medicine Geriatric Medicine; PCP Family Medicine Geriatric Medicine; Visit Provider Family Medicine Geriatric Medicine
DX: I10 Essential (primary) hypertension (principal); E55.9 Vitamin D deficiency, unspecified
CPT/HCPCS: 36415; 80053; 82306; 84443; 85025

== ENCOUNTER → 2018-08-22 16:12 | Outpatient (CLI) | payer MEDICARE, SELFPAY | PROVIDERS: Family Provider Family Medicine Geriatric Medicine; PCP Family Medicine Geriatric Medicine; Visit Provider Family Medicine Geriatric Medicine | DX: N39.0 Urinary tract infection, site not specified (principal) | CPT/HCPCS: 87086; 87088 ==

== ENCOUNTER 2018-11-20 18:43 | Inpatient (IN) | payer MEDICARE, SELFPAY ==
[2018-11-20 18:45] VITALS: BP 148/87; PULSE 125; RESP 14; TEMP 36.6; O2SAT 100; BMI 31.3
[2018-11-20 21:14] LABS: Bacteria 0 SEEN /hpf (None Seen); Color, Urine Yellow (Yellow); Glucose, Dipstick Normal (Normal); Ketone-Dipstick Negative (Negative); Leukocyte Esterase-Dipstick 500 /ul (Negative); Mucous, Urine 0 SEEN /hpf (<or=2+); Nitrite-Dipstick Negative (Negative); Occult Blood-Urine 250 /ul (Negative); Protein-Dipstick 100 mg/dl (Negative); Red Blood Cells-Urine 0 SEEN /hpf (0-5); Squamous Epithelial Cells - UA 0 SEEN /hpf (5-10); Urine Bilirubin Dipstick Negative (Negative); Urine Clarity Cloudy (Clear); Urine Urobilinogen Normal (Normal); Urine pH 6.5 (5.0 - 8.0)
[2018-11-20 21:40] LABS: White Blood Cells >100 SEEN /hpf (0-5)
[2018-11-20 21:43] LABS: Anion Gap 16 (5-15); BUN 63 mg/dL (7-18); BUN/Creat Ratio 13.8 RATIO (10-20); Calcium,Total 8.2 mg/dL (8.5-10.1); Chloride 90 mmol/L (98-107); Creatinine, Serum 4.58 mg/dL (0.55-1.02); EST Glomerular Filtration Rate 10 mL/min (>60); Est Glom Filt Rate - Afr Amer 12 mL/min (>60); Estimated Creatinine Clearance 11.75 ml/min; Glucose 99 mg/dL (74-106); Potassium 3.1 mmol/L (3.5-5.1); Sodium Level 126 mmol/L (136-145)
[2018-11-20 21:57] LABS: Absolute Lymphocyte Count 1.36 X10^3/ul (0.83-4.51); Basophil# 0.02 X10^3/uL; Basophil% 0.1 % (0-1); Eosinophil# 0.01 X10^3/uL; Eosinophils% 0.1 % (0-5); Hematocrit 38.6 % (37-47); Hemoglobin 13.6 g/dl (12.0-15.0); Lymphocyte # 1.36 X10^3/ul (4.0); Lymphocyte % 9.7 % (19-41); Mean Corp Hgb Conc 35.2 g/gl (32-36); Mean Corpuscular Hgb 32.2 pg (27.0-32.0); Mean Corpuscular Volume 91.3 fL (81-99); Mean Platelet Vol. 11.5 fl (6.2-12.0); Monocyte# 0.61 X10^3/uL; Monocyte% 4.3 % (0-10); Neutrophil % 85.2 % (47-70); Platelet Count 219 K/mm3 (150-450); RBC Distribution Width CV 15.1 % (11.6-14.6); RBC Distribution Width SD 50.7 fl (35.1-43.9); Red Blood Count 4.23 M/mm3 (4.2-5.4); White Blood Count 14.1 K/mm3 (4.4-11.0)
[2018-11-20 22:01] LABS: POSITIVE COUNT NO; POSITIVE DIFFERENTIAL NO; POSITIVE MORPHOLOGY NO
[2018-11-20] MEDS: 0.9% Normal Saline 1,000 ML 1000 ML IV (22:35)
[2018-11-20 22:41] VITALS: BP 97/68; PULSE 95; RESP 16; O2SAT 96
--- NOTE | 2018-11-20 22:45 | ED.DCSUM_ITS ---
- ER Visit Summary Date of Service: 11/20/18 Chief Complaint: Diarrhea History of Present Illness: The patient is a 68 F with a 5-day history of diarrhea. She states she had fever the first couple days with T-max of 102.8 along with chills. She denies nausea or vomiting. She has not had any significant abdominal pain. She denies any recent antibiotics or history of C. difficile. Past history significant for hypertension, high cholesterol, cervical cancer, and a mass removed from her kidney. Following surgery she did have an ileus for a short time. She has had full hysterectomy. Physical Examination: Vital signs significant for heart rate of 125, otherwise unremarkable. Patient is afebrile. Head neck examination is unremarkable. Heart is tachycardic and regular. Lung sounds are clear. Abdomen is soft and nontender. Hypoactive bowel sounds noted throughout. Test Results: CBC reveals a white count of 14.1 with 85% neutrophils. Chemistry studies significant for a sodium of 126 and a chloride of 90. Potassium is 3.1. BUN is 63 and creatinine is 4.58. Urinalysis shows greater than 100 white cells but no bacteria. Emergency Department Course and Treatment: Patient is ordered IV fluids along with IV potassium chloride. She will be admitted for further treatment. Treatment Plan: [] Disposition: Admit Impression: 1. Diarrhea 2. Hypokalemia 3. Hyponatremia 4. Acute renal failure This note was generated with [employer] dictation software. It may contain incorrect words, spelling, and punctuation that were not noted in review of the chart prior to signing ED Disposition - Plan for ED Patient: Chief Complaint: Diarrhea Referrals: Gerardo García Chi, MD [Primary Care Provider] -
[2018-11-20] MEDS: Potassium Chloride 10mEq/100mL 10 MEQ/100 ML IV.SOLN. 100 MEQ IV BOLUS ×2 (23:00→23:50)
[2018-11-20 23:08] VITALS: BP 97/68; PULSE 94; RESP 16; O2SAT 96
--- NOTE | 2018-11-20 23:15 | PCM.HP.STD ---
Problem List (1) Acute diarrhea Status: Acute (2) Hyponatremia Status: Acute (3) Hypokalemia Status: Acute (4) Chest pain Status: Acute Qualifiers: Ischemic chest pain type: unspecified angina pectoris type (5) High anion gap metabolic acidosis Status: Acute History of Present Illness Date of Admission: 11/20/18 Chief Complaint: diarrhea The patient is a 68 year old F with a history of mild intermittent asthma; hypertension; cervical cancer status post radiation and radium implant now in remission; mass removed from kidney follow-up postop operative-ileus who presented with 5 days history of diarrhea. She has multiple loose bowel movements per pay. Her bowel movements are too numerous to count.. She reported that she had a maximal temperature of 102.8. She reported chills and anorexia.. She denies any nausea vomiting or abdominal pain. She denies any blood in her stools. 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 She reported that there is nobody living in the household that have had same symptoms. A family members who have same symptoms is not living with them neither have they eaten the same food. 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 Cervical cancer C53.9 History of hysterectomy Z90.710 Allergies pravastatin Allergy (Verified 11/20/18 18:44) Chest tightness sulfamethoxazole [From Bactrim] Allergy (Verified 11/20/18 18:44) Shortness of breath trimethoprim [From Bactrim] Allergy (Verified 11/20/18 18:44) Shortness of breath methylprednisolone Adverse Reaction (Verified 11/20/18 18:44) Pain in joints novacaine Allergy (Uncoded 11/20/18 18:44) Unknown Home Medications: Ambulatory Orders Medication Instructions Recorded Lisinopril [Zestril] 40 mg PO DAILY 02/12/15 albuterol sulfate HFA 90 1 puff INHALATION Q6H PRN 07/25/18 mcg/actuation aerosol inhaler fluticasone 50 mcg/actuation nasal 1 spray INTRANASAL BID g 07/25/18 spray,suspension Surgical History: Surgical History (Last Reviewed 11/20/18 @ 23:33 by Tera Mercer MD) History of cardiac catheterization Onset Date: ~01/08/18 Z98.890 normal coronaries History of cholecystectomy Z90.49 Surgical History: hysterectomy, - - Cholecystectomy; and Mass removed from kidney. 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 Denies: Weight Change HEENT: Denies: Head Aches, Sinus Congestion, Sinus Drainage Cardiovascular: Denies: Chest Pain, Palpitations Respiratory: Denies: Cough, Shortness of breath at rest, Sputum production Gastrointestinal: Reports: Diarrhea. Denies: Abdominal Pain, Nausea, Melena, Vomiting Genitourinary: Denies: Dysuria Musculoskeletal: Denies: Joint Pain, Joint Tenderness Skin: Denies: Rash, Wounds Neurological: Denies: Numbness, Tingling, Focal weakness Psychiatric: Denies: Anxiety, Depression, Homicidal Ideations, Suicidal Ideations Hematologic/ Lymphatic: Denies: Easy Bruising, Easy Bleeding VTE Information - Inpt Only VTE Present on Admission: No VTE Mechan Device Prophylaxis: None VTE Pharm Prophylaxis ordered?: Yes Patient Problems: Active and Suspected Problems (Last Reviewed 11/20/18 @ 23:33 by Tera Mercer MD) Acute diarrhea (Acute) Hyponatremia (Acute) Hypokalemia (Acute) High anion gap metabolic acidosis (Acute) - Physical Exam General: Alert, Oriented x3, Cooperative HEENT: Atraumatic, PERRLA, EOMI, Normocephalic Neck: Supple, No JVD, Negative Carotid Bruits Lungs: Clear to auscultation, Normal air movement Cardiovascular: Regular rate, No murmurs Abdomen: Bowel Sounds Present, Soft, Non Tender Extremities: No edema, Capillary Refill Less than 3 Seconds Skin: No rashes, No breakdown Musculoskeletal: No Tenderness to Palpation of Joints or Extremities Neurological: Neuro grossly intact Psych/Mental Status: Normal Affect, Appropriate Vital Signs Temp Pulse Resp BP Pulse Ox 97.8 F 94 16 97/68 96 11/20/18 18:45 11/20/18 23:08 11/20/18 23:08 11/20/18 23:08 11/20/18 23:08 Oxygen Delivery Method Room Air Weight: 90.718 kg Body Mass Index (BMI) 31.3 Finger Stick Blood Glucose 92 Laboratory Tests Past 24 Hrs 11/20/18 11/20/18 11/20/18 20:55 21:05 21:05 WBC 14.1 H RBC 4.23 Hgb 13.6 Hct 38.6 MCV 91.3 MCH 32.2 H MCHC 35.2 RDW 15.1 H RDW Differential 50.7 H Plt Count 219 MPV 11.5 Immature Gran % (Auto) 0.600 Neut % (Auto) 85.2 H Lymph % (Auto) 9.7 L [place] % (Auto) 4.3 Eos % (Auto) 0.1 Baso % (Auto) 0.1 Absolute Neuts (auto) 12.0 H Absolute Lymphs (auto) 1.36 Total Counted Not Reportable Sodium 126 L Potassium 3.1 L Chloride 90 L Carbon Dioxide 20.0 L Anion Gap 16 H BUN 63 H Creatinine 4.58 H Estim Creat Clear Calc 11.75 Est GFR (MDRD) Af Amer 12 L Est GFR (MDRD) Non-Af 10 L BUN/Creatinine Ratio 13.8 Glucose 99 Calcium 8.2 L Urine Color Yellow Urine Clarity Cloudy Urine pH 6.5 Ur Specific [place] 1.010 Urine Protein 100 H Urine Glucose (UA) Normal Urine Ketones Negative Urine Occult Blood 250 H Urine Nitrite Negative Urine Bilirubin Negative Urine Urobilinogen Normal Ur Leukocyte Esterase 500 H Urine RBC 0 SEEN Urine WBC >100 SEEN Ur Squamous Epith Cells 0 SEEN Urine Bacteria 0 SEEN Urine Mucus 0 SEEN Assessment/Plan All Active Problems (Last Reviewed 11/20/18 @ 23:33 by Tera Mercer MD) Acute diarrhea (Acute) Hyponatremia (Acute) Hypokalemia (Acute) High anion gap metabolic acidosis (Acute) Chest pain (Acute) H/O Dunbar's palsy (Resolved) Hx of cervical cancer (Resolved) The patient is a 68 year old F with a history of mild intermittent asthma; hypertension; cervical cancer status post radiation and radium implant now in remission; mass removed from kidney follow-up postop operative ileus who presented with 5 days history of diarrhea; chills; fever and anorexia and found to have a potassium level of 3.1; sodium of 126; creatinine of 4.58; BUN of 63; anion gap metabolic acidosis with a gap of 16. Acute diarrhea The etiology of her diarrhea is unclear at this time. It could be viral or it could be bacterial. Will start patient on ciprofloxacin and Flagyl because of reported fever and chills; and her symptoms not abating after 5 days. C. difficile and enteric stool pathogens are pending. Discontinue antibiotics if these are negative. Trend BMP and check magnesium. Hyponatremia with hypochloremia Is likely due to diarrhea. Normal saline with potassium hydration. Trend BMP. Hypokalemia Likely due to diarrhea Replacement as above Placed on telemetry floor. Trend BMP. Dehydration Patient has a BUN of 63 Review of old records shows that her baseline BUN is about 11. IV hydration as above. Anion gap metabolic acidosis. Her anion gap on admission was 16. Diarrhea typically keeps non-anion gap metabolic acidosis. However patient has high anion gap metabolic acidosis. Implying that apart from non-anion gap metabolic acidosis there is something else causing elevated anion GAP metabolic acidosis. This likely due to ketosis secondary to dehydration. We will check serum acetone and lactic acid. LULY On admission her creatinine was 4.58. Review of records shows that her baseline creatinine is around 0.95. Likely due to dehydration from diarrhea. IV hydration as above. Trend BMP. Hold lisinopril. Avoid other nephrotoxic's. If LULY persist consider nephrology consult. Hypertension On presentation the blood pressure was not within goal. However her blood pressure has been trending down to systolic of less than 100. Her initial heart rate on presentation was 125. Her heart rate has been trending down. Lisinopril has been held because of AK I. Her relative hypotension may be because of dehydration. She received IV bolus at emergency department. We will continue IV hydration. Trend blood pressures. DVT prophylaxis Subcu heparin. Code Visit Inpatient E&M: 09636 Init Hosp L3
[2018-11-20] MEDS: 0.9% Normal Saline 1,000 ML 150 ML IV (23:50)
[2018-11-21] VITALS (13 sets, daily range): BP systolic 99–123; BP diastolic 57–72; PULSE 87–107; RESP 16–18; TEMP 36.9–37.4; O2SAT 91–98; BMI 31.3
[2018-11-21 00:42] LABS: Magnesium 1.8 mg/dL (1.6-2.6)
[2018-11-21] MEDS: Potassium Chloride 10mEq/100mL 10 MEQ/100 ML IV.SOLN. 100 MEQ IV BOLUS ×2 (01:03→01:51)
[2018-11-21] MEDS: Potassium Chloride 40 MEQ in 0.9% Normal Saline 1,000 ML 150 MEQ IV ×3 (02:53→20:40)
--- NOTE | 2018-11-21 03:16 | NURSING ---
STOOL SENT TO LAB PT UNSURE IF SHE VOIDED IN STOOL IT IS LIQUID BROWN/YELLOW. PT ASKED FOR BREATHING TREATMENT CPS NOTIFIED.
[2018-11-21] MEDS: Albuterol 2.5 MG/3 ML VIAL.NEB. INHALATION (03:34)
[2018-11-21] MEDS: Ciprofloxacin 400 MG/200 ML BAG 200 MG IV (03:57)
[2018-11-21] MEDS: Heparin Injection (Vial) 5,000 UNIT/ML VIAL 5000 UNIT SC ×3 (05:31→21:27)
[2018-11-21 07:16] LABS: Anion Gap 15 (5-15); BUN 63 mg/dL (7-18); BUN/Creat Ratio 14.8 RATIO (10-20); Calcium,Total 6.8 mg/dL (8.5-10.1); Chloride 100 mmol/L (98-107); Creatinine, Serum 4.25 mg/dL (0.55-1.02); EST Glomerular Filtration Rate 11 mL/min (>60); Est Glom Filt Rate - Afr Amer 13 mL/min (>60); Estimated Creatinine Clearance 12.66 ml/min; Glucose 90 mg/dL (74-106); Potassium 2.9 mmol/L (3.5-5.1); Sodium Level 131 mmol/L (136-145)
[2018-11-21 07:17] LABS: Absolute Lymphocyte Count 0.96 X10^3/ul (0.83-4.51); Absolute Neutrophil Count 8.6 X10^3/uL (2.0-7.7); Basophil# 0.01 X10^3/uL; Basophil% 0.1 % (0-1); Hematocrit 32.3 % (37-47); Lymphocyte # 0.96 X10^3/ul (4.0); Lymphocyte % 9.3 % (19-41); Mean Corp Hgb Conc 34.1 g/gl (32-36); Mean Corpuscular Hgb 31.5 pg (27.0-32.0); Mean Corpuscular Volume 92.6 fL (81-99); Monocyte# 0.65 X10^3/uL; Monocyte% 6.3 % (0-10); Neutrophil # 8.64 X10^3/uL (2.7-7.7); Neutrophil % 83.9 % (47-70); Platelet Count 199 K/mm3 (150-450); RBC Distribution Width CV 15.3 % (11.6-14.6); RBC Distribution Width SD 51.9 fl (35.1-43.9); Red Blood Count 3.49 M/mm3 (4.2-5.4); White Blood Count 10.3 K/mm3 (4.4-11.0)
[2018-11-21 07:23] LABS: POSITIVE COUNT NO; POSITIVE DIFFERENTIAL NO; POSITIVE MORPHOLOGY NO
--- NOTE | 2018-11-21 14:26 | PN_ITS ---
Patient Problems: Active and Suspected Problems (Last Reviewed 11/20/18 @ 23:33 by Tera Mercer MD) Acute diarrhea (Acute) Hyponatremia (Acute) Hypokalemia (Acute) High anion gap metabolic acidosis (Acute) Subjective: Patient seen and examined. Continues to have diarrhea, although improved. Denies abdominal pain. Denies fever, chills. Denies blood in stool. Denies nausea, vomiting. - Physical Exam General: Alert, Oriented x3, Cooperative HEENT: Atraumatic, PERRLA, EOMI, Normocephalic Neck: Supple, No JVD, Negative Carotid Bruits Lungs: Clear to auscultation, Normal air movement Cardiovascular: Regular rate, Regular Rhythm, Normal S1, Normal S2, No murmurs Abdomen: Bowel Sounds Present, Soft, Non Tender, Non-Distended Extremities: No clubbing, No cyanosis, No edema, Capillary Refill Less than 3 Seconds Skin: No rashes, No breakdown Musculoskeletal: No Tenderness to Palpation of Joints or Extremities Neurological: Cranial nerves II-XII grossly intact, Neuro grossly intact Psych/Mental Status: Normal Affect, Appropriate Vital Signs Temp Pulse Resp BP Pulse Ox 99.3 F H 97 16 99/57 L 91 11/21/18 05:35 11/21/18 07:06 11/21/18 05:35 11/21/18 05:35 11/21/18 08:31 Oxygen Delivery Method Room Air Weight: 200 lb Body Mass Index (BMI) 31.3 Finger Stick Blood Glucose 92 Intake and Output for Last 24 Hours 11/19/18 11/20/18 11/21/18 23:59 23:59 23:59 Intake Total 2237 / 2237 Output Total 300 / 300 Balance 1937 / 1937 Microbiology Past 72 Hours 11/21/18 03:15 Enteric Bacteriology - Final Stool 11/21/18 03:15 C. difficile DNA Amplification - Final Stool 11/21/18 03:15 Stool Lactoferrin - Final Stool Laboratory Tests Past 24 Hrs 11/20/18 11/20/18 11/20/18 20:55 21:05 21:05 WBC 14.1 H RBC 4.23 Hgb 13.6 Hct 38.6 MCV 91.3 MCH 32.2 H MCHC 35.2 RDW 15.1 H RDW Differential 50.7 H Plt Count 219 MPV 11.5 Immature Gran % (Auto) 0.600 Neut % (Auto) 85.2 H Lymph % (Auto) 9.7 L [place] % (Auto) 4.3 Eos % (Auto) 0.1 Baso % (Auto) 0.1 Absolute Neuts (auto) 12.0 H Absolute Lymphs (auto) 1.36 Total Counted Not Reportable Sodium 126 L Potassium 3.1 L Chloride 90 L Carbon Dioxide 20.0 L Anion Gap 16 H BUN 63 H Creatinine 4.58 H Estim Creat Clear Calc 11.75 Est GFR (MDRD) Af Amer 12 L Est GFR (MDRD) Non-Af 10 L BUN/Creatinine Ratio 13.8 Glucose 99 Lactic Acid Calcium 8.2 L Magnesium Urine Color Yellow Urine Clarity Cloudy Urine pH 6.5 Ur Specific [place] 1.010 Urine Protein 100 H Urine Glucose (UA) Normal Urine Ketones Negative Urine Occult Blood 250 H Urine Nitrite Negative Urine Bilirubin Negative Urine Urobilinogen Normal Ur Leukocyte Esterase 500 H Urine RBC 0 SEEN Urine WBC >100 SEEN Ur Squamous Epith Cells 0 SEEN Urine Bacteria 0 SEEN Urine Mucus 0 SEEN Acetone Level 11/20/18 11/20/18 11/21/18 21:05 21:05 01:40 WBC RBC Hgb Hct MCV MCH MCHC RDW RDW Differential Plt Count MPV Immature Gran % (Auto) Neut % (Auto) Lymph % (Auto) [place] % (Auto) Eos % (Auto) Baso % (Auto) Absolute Neuts (auto) Absolute Lymphs (auto) Total Counted Sodium Potassium Chloride Carbon Dioxide Anion Gap BUN Creatinine Estim Creat Clear Calc Est GFR (MDRD) Af Amer Est GFR (MDRD) Non-Af BUN/Creatinine Ratio Glucose Lactic Acid 1.0 Calcium Magnesium 1.8 Urine Color Urine Clarity Urine pH Ur Specific [place] Urine Protein Urine Glucose (UA) Urine Ketones Urine Occult Blood Urine Nitrite Urine Bilirubin Urine Urobilinogen Ur Leukocyte Esterase Urine RBC Urine WBC Ur Squamous Epith Cells Urine Bacteria Urine Mucus Acetone Level NEGATIVE 11/21/18 11/21/18 06:20 06:20 WBC 10.3 RBC 3.49 L Hgb 11.0 L Hct 32.3 L MCV 92.6 MCH 31.5 MCHC 34.1 RDW 15.3 H RDW Differential 51.9 H Plt Count 199 MPV 11.0 Immature Gran % (Auto) 0.400 Neut % (Auto) 83.9 H Lymph % (Auto) 9.3 L [place] % (Auto) 6.3 Eos % (Auto) 0.0 Baso % (Auto) 0.1 Absolute Neuts (auto) 8.6 H Absolute Lymphs (auto) 0.96 Total Counted Not Reportable Sodium 131 L Potassium 2.9 L Chloride 100 Carbon Dioxide 16.0 L Anion Gap 15 BUN 63 H Creatinine 4.25 H Estim Creat Clear Calc 12.66 Est GFR (MDRD) Af Amer 13 L Est GFR (MDRD) Non-Af 11 L BUN/Creatinine Ratio 14.8 Glucose 90 Lactic Acid Calcium 6.8 L Magnesium Urine Color Urine Clarity Urine pH Ur Specific [place] Urine Protein Urine Glucose (UA) Urine Ketones Urine Occult Blood Urine Nitrite Urine Bilirubin Urine Urobilinogen Ur Leukocyte Esterase Urine RBC Urine WBC Ur Squamous Epith Cells Urine Bacteria Urine Mucus Acetone Level Medical Necessity - Tobacco Use Smoking Status: Former smoker Tobacco Use: Secondhand, Cigarettes Assessment/Plan All Active Problems (Last Reviewed 11/20/18 @ 23:33 by Tera Mercer MD) Acute diarrhea (Acute) Hyponatremia (Acute) Hypokalemia (Acute) High anion gap metabolic acidosis (Acute) Chest pain (Acute) H/O Dunbar's palsy (Resolved) Hx of cervical cancer (Resolved) 1. Acute gastroenteritis, suspect viral-C. difficile and enteric bacteriology negative. + lactoferrin. Ova and parasites pending. Started on Bentyl. Discontinue Flagyl and Cipro. 2. Hypokalemia/hyponatremia-secondary to #1. Replace per protocol. Trend BMP. 3. Acute kidney injury, secondary to #1- Improving with IV fluids. Trend BMP. 4. Hypertension-home lisinopril regimen on hold given LULY. BP stable. 5. Mild intermittent asthma-no acute exacerbation. DVT prophylaxis-heparin subcu This patient was seen by Diana Little NP-Ozzy under the supervision of Dr. Light.
--- NOTE | 2018-11-21 14:37 | CASEMGMT ---
ANISH KIRKPATRICK assessment: Face to Face with patient for initial transition planning/care coordination assessment. ANISH KIRKPATRICK introduced self and role at [facility], pt voices understanding and consents to assessment at this time. Pt is sitting up in bed in no distress at this time. Pt is A/Ox4 at this time and answers all questions appropriately at this time. Care providers, pharmacy, and demographics verified at this time. PCP: Ricky Specialists: Pt states currently has no specialists. Preferred Pharmacy: [facility] Insurance: [facility] A/B Prescription Benefit: [facility] D plan Living Will/HPOA: Pt states does not have LW/HPOA and declines info at this time. LNOK: Fernando Delong Sr, Living Arrangements: Pt states lives with in 2 story home and states no concerns at home at this time. Pt states is independent with ADL's at this time. Transportation: Pt states drives and states no transportation concerns at this time. DME/HHC: Pt states no current DME or need for any at this time. Pt states no hx of HHC or SNF in the past. Pt states no concerns with going home at time of discharge. 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 Pt states does not smoke or drink ETOH. Pt states no further concerns/needs at this time. CM to follow for any further discharge planning/needs. Advised pt to ask for CM if any further questions/concerns/needs arise, voices understanding. Plan[place] ANISH KIRKPATRICK
[2018-11-21] MEDS: Dicyclomine 10 MG Capsule 20 MG PO ×3 (14:49→21:28)
[2018-11-21] MEDS: 0.9% NaCl Peripheral Flush Adult/Peds IV (17:45)
[2018-11-22] VITALS (13 sets, daily range): BP systolic 117–147; BP diastolic 69–76; PULSE 87–104; RESP 18; TEMP 36.2–36.9; O2SAT 96–99
[2018-11-22] MEDS: Potassium Chloride 40 MEQ in 0.9% Normal Saline 1,000 ML 150 MEQ IV ×4 (03:29→23:58)
[2018-11-22] MEDS: Heparin Injection (Vial) 5,000 UNIT/ML VIAL 5000 UNIT SC ×3 (05:17→21:10)
[2018-11-22 06:34] LABS: Hematocrit 32.3 % (37-47); Hemoglobin 11.1 g/dl (12.0-15.0); Mean Corp Hgb Conc 34.4 g/gl (32-36); Mean Corpuscular Hgb 32.4 pg (27.0-32.0); Mean Corpuscular Volume 94.2 fL (81-99); Platelet Count 221 K/mm3 (150-450); RBC Distribution Width CV 15.5 % (11.6-14.6); RBC Distribution Width SD 50.8 fl (35.1-43.9); Red Blood Count 3.43 M/mm3 (4.2-5.4)
[2018-11-22 06:38] LABS: Scan Indicated on CBC? Y/N NO
[2018-11-22 06:41] LABS: Anion Gap 14 (5-15); BUN 67 mg/dL (7-18); BUN/Creat Ratio 16.7 RATIO (10-20); Calcium,Total 7.9 mg/dL (8.5-10.1); Chloride 112 mmol/L (98-107); Creatinine, Serum 4.01 mg/dL (0.55-1.02); EST Glomerular Filtration Rate 12 mL/min (>60); Est Glom Filt Rate - Afr Amer 14 mL/min (>60); Estimated Creatinine Clearance 13.42 ml/min; Glucose 90 mg/dL (74-106); Sodium Level 139 mmol/L (136-145)
[2018-11-22] MEDS: Dicyclomine 10 MG Capsule 20 MG PO ×4 (08:58→21:09)
--- NOTE | 2018-11-22 10:48 | US_ITS ---
STUDY: RENAL ULTRASOUND - COMPLETE REASON FOR EXAM: Female, 68 years old. Acute renal failure TECHNIQUE: Ultrasound evaluation of the kidneys was performed with real-time and static alejo-scale imaging. COMPARISON: None. FINDINGS: RIGHT KIDNEY: Normal location of the right kidney, which is normal in size. The right kidney measures 13.0 x 5.6 x 4.9 cm. There is a normal cortex of the right kidney. The renal cortex measures 1.5 cm. There is a 3.2 cm cyst. There are no right renal calculi. There is moderate right hydronephrosis. DISTAL RIGHT URETER: There is non-visualization of the distal right ureter. LEFT KIDNEY: Normal location of the left kidney, which is normal in size. The left kidney measures 12.8 x 6.0 x 6.5 cm. There is a normal cortex of the left kidney. The renal cortex measures 2.3 cm. There is no left renal mass or cyst. There are no left renal calculi. There is moderate left hydronephrosis. DISTAL LEFT URETER: There is non-visualization of the distal left ureter. BLADDER: The distended urinary bladder has a volume of 373 ml. There is a normal wall thickness of the distended urinary bladder. There is no demonstrated mass within the urinary bladder. There are no demonstrated bladder calculi. US/Kidney and Bladder IMPRESSION: Bilateral hydronephrosis. Right renal cyst. Electronically Signed: Tanmay Baker DO at 23:37 EST Tel [phone], Service support ,
[2018-11-22] MEDS: Loperamide 2 MG Capsule PO (12:29)
--- NOTE | 2018-11-22 13:01 | PCM.PROGNOTE ---
Patient Problems: Active and Suspected Problems (Last Reviewed 11/20/18 @ 23:33 by Tera Mercer MD) Acute diarrhea (Acute) Hyponatremia (Acute) Hypokalemia (Acute) High anion gap metabolic acidosis (Acute) Subjective: Patient seen and examined. Continues to have diarrhea although improving. Denies fever, chills. Denies other current complaints. - Physical Exam General: Alert, Oriented x3, Cooperative HEENT: Atraumatic, PERRLA, EOMI, Normocephalic Neck: Supple, No JVD, Negative Carotid Bruits Lungs: Clear to auscultation, Normal air movement Cardiovascular: Regular rate, Regular Rhythm, Normal S1, Normal S2, No murmurs Abdomen: Bowel Sounds Present, Soft, Non Tender, Non-Distended Extremities: No clubbing, No cyanosis, No edema, Capillary Refill Less than 3 Seconds Skin: No rashes, No breakdown Musculoskeletal: No Tenderness to Palpation of Joints or Extremities Neurological: Cranial nerves II-XII grossly intact, Neuro grossly intact Psych/Mental Status: Normal Affect, Appropriate Vital Signs Temp Pulse Resp BP Pulse Ox 98.0 F 95 18 128/71 H 96 11/22/18 08:57 11/22/18 11:13 11/22/18 08:57 11/22/18 08:57 11/22/18 08:57 Oxygen Delivery Method Room Air Weight: 199 lb 15.983 oz Body Mass Index (BMI) 31.3 Finger Stick Blood Glucose 92 Intake and Output for Last 24 Hours 11/20/18 11/21/18 11/22/18 23:59 23:59 23:59 Intake Total 4915 / 4915 2484 / 2484 Output Total 300 / 300 Balance 4615 / 4615 2484 / 2484 Microbiology Past 72 Hours 11/21/18 03:15 Enteric Bacteriology - Final Stool 11/21/18 03:15 C. difficile DNA Amplification - Final Stool 11/21/18 03:15 Stool Lactoferrin - Final Stool Laboratory Tests Past 24 Hrs 11/22/18 11/22/18 06:05 06:05 WBC 10.0 RBC 3.43 L Hgb 11.1 L Hct 32.3 L MCV 94.2 MCH 32.4 H MCHC 34.4 RDW 15.5 H RDW Differential 50.8 H Plt Count 221 MPV 11.0 Sodium 139 Potassium 4.0 Chloride 112 H Carbon Dioxide 13.0 L Anion Gap 14 BUN 67 H Creatinine 4.01 H Estim Creat Clear Calc 13.42 Est GFR (MDRD) Af Amer 14 L Est GFR (MDRD) Non-Af 12 L BUN/Creatinine Ratio 16.7 Glucose 90 Calcium 7.9 L Medical Necessity - Tobacco Use Smoking Status: Former smoker Tobacco Use: Secondhand, Cigarettes Assessment/Plan All Active Problems (Last Reviewed 11/20/18 @ 23:33 by Tera Mercer MD) Acute diarrhea (Acute) Hyponatremia (Acute) Hypokalemia (Acute) High anion gap metabolic acidosis (Acute) Chest pain (Acute) H/O Dunbar's palsy (Resolved) Hx of cervical cancer (Resolved) 1. Acute gastroenteritis, suspect viral-C. difficile and enteric bacteriology negative. + lactoferrin. Ova and parasites pending. Started on Bentyl and immodium. Slowly improving. Discontinue Flagyl and Cipro. IV fluids. 2. Hypokalemia/hyponatremia-secondary to #1. Replaced per protocol. Resolved. Trend BMP. 3. Acute kidney injury, secondary to #1- Improving with IV fluids. Trend BMP. Obtain renal US given slow improvement with hx of renal ultrasound with bilateral hydronephrosis. Consult nephrology if renal ultrasound abnormal. 4. Hypertension-home lisinopril regimen on hold given LULY. BP stable. 5. Mild intermittent asthma-no acute exacerbation. DVT prophylaxis-heparin subcu This patient was seen by EMMETT Price under the supervision of Dr. Light.
[2018-11-22] MEDS: 0.9% NaCl Peripheral Flush Adult/Peds IV ×2 (21:10→21:13)
[2018-11-22] MEDS: Ondansetron 4 MG/2 ML Vial IV (21:10)
[2018-11-23] VITALS (11 sets, daily range): BP systolic 122–174; BP diastolic 78–91; PULSE 88–103; RESP 18–24; TEMP 36.1–36.8; O2SAT 95–100
[2018-11-23] MEDS: Heparin Injection (Vial) 5,000 UNIT/ML VIAL 5000 UNIT SC ×3 (05:23→21:03)
[2018-11-23] MEDS: Potassium Chloride 40 MEQ in 0.9% Normal Saline 1,000 ML 150 MEQ IV (06:42)
[2018-11-23 09:23] LABS: Anion Gap 11 (5-15); BUN 61 mg/dL (7-18); BUN/Creat Ratio 17.7 RATIO (10-20); Calcium,Total 8.1 mg/dL (8.5-10.1); Chloride 123 mmol/L (98-107); Creatinine, Serum 3.44 mg/dL (0.55-1.02); EST Glomerular Filtration Rate 14 mL/min (>60); Est Glom Filt Rate - Afr Amer 17 mL/min (>60); Estimated Creatinine Clearance 15.64 ml/min; Glucose 102 mg/dL (74-106); Potassium 5.1 mmol/L (3.5-5.1); Sodium Level 145 mmol/L (136-145)
[2018-11-23] MEDS: Dicyclomine 10 MG Capsule 20 MG PO ×4 (09:47→21:03)
--- NOTE | 2018-11-23 10:35 | RAD_ITS ---
STUDY: X-RAY CHEST REASON FOR EXAM: Female, 68 years old. Shortness of breath. TECHNIQUE: Single AP portable view of the chest. COMPARISON: 08 January 2018 FINDINGS: Mild prominent interstitial markings with no distinct focal airspace disease is present. The lungs are clear and expanded. There is no demonstrated pleural abnormality. Normal size heart. Normal mediastinum and wayne. Normal visualized pulmonary arteries. There is atherosclerotic calcification of the aortic arch with tortuosity. Normal visualized thoracic spine. Normal visualized ribs, clavicles, and shoulders. There is no demonstrated abnormality of the visualized soft tissue structures of the upper abdomen. RAD/Chest 1 View (Portable) IMPRESSION: Mild prominent interstitial markings with no distinct focal airspace disease. Electronically Signed: Dale Ferrari DO at 11:18 EST , Service support ,
--- NOTE | 2018-11-23 11:17 | CT_ITS ---
STUDY: CT ABDOMEN AND PELVIS WITHOUT CONTRAST REASON FOR EXAM: Female, 68 years old. History of hydronephrosis. RADIATION DOSAGE (If Supplied By Facility): CTDIvol = ( 17.76 ) mGy, DLP = ( 945.05 ) mGycm TECHNIQUE: Transaxial images were obtained from the dome of the diaphragm to the symphysis pubis without oral contrast, and without intravenous contrast. Sagittal and coronal images were reconstructed. Individualized dose optimization techniques were used for this CT. COMPARISON: 08/22/2017. FINDINGS: The visualized portions of lung bases demonstrate 6 mm noncalcified nodule in the right middle lobe unchanged since previous examinations dated back to 2014. There is mild stranding in the right lower lobe. There is small right pleural effusion. The visualized portions of the heart are within normal limits. Normal liver. There is non-visualization of the gallbladder, which may be secondary to either contraction or a prior cholecystectomy. Normal spleen. Normal pancreas. Normal bilateral adrenal glands. There is a cyst in the upper pole of the right kidney unchanged since prior exam. There is mild right perinephric stranding. There is mild right hydronephrosis and hydroureter. There is a 2 to 3 mm stone in the distal right ureter. Is mild left hydronephrosis and mild left perinephric stranding. The proximal left ureter is dilated. There is no definite stones in the expected course of the left ureter. Normal visualized stomach. There are nonspecific fluid-filled small bowel loops. There is no evidence of small bowel obstruction. The colon also is fluid-filled. There is no evidence of acute diverticulitis. The appendix is visualized and appears normal. There is atherosclerotic calcification of the abdominal aorta, without a demonstrated aneurysm. Normal inferior vena cava. Normal retroperitoneum. Normal urinary bladder. There is absence of the uterus consistent with a prior hysterectomy. There is mild stranding and increased density of the anterior pelvic wall. Findings could be due to hernia repair surgery. There is a prominent node in the left groin measuring about 1.5 cm. There are degenerative changes in the lower lumbar spine. CT/Abdomen/Pelvis without Cont IMPRESSION: 1. Mild right hydronephrosis and hydroureter with probable 3 mm stone in the distal right ureter. 2. Mild left hydronephrosis without definite left ureteral stone. 3. Right renal cyst. 4. No evidence of acute appendicitis. 5. Nonspecific fluid-filled small bowel loops and colon without evidence of bowel obstruction. Mild ileus or enteritis are possible. 6. Mild stranding of the serpiginous fat of the lower anterior abdominal wall. Electronically Signed: Flip Lowry MD at 13:17 EST Tel , Service support ,
[2018-11-23 12:09] LABS: Urine Sodium 78 mmol/L (Not Establ.)
[2018-11-23] MEDS: 0.9% Normal Saline 1,000 ML 100 ML IV (13:03)
--- NOTE | 2018-11-23 14:04 | PCM.PROGNOTE ---
Patient Problems: Active and Suspected Problems (Last Reviewed 11/20/18 @ 23:33 by Tera Mercer MD) Acute diarrhea (Acute) Hyponatremia (Acute) Hypokalemia (Acute) High anion gap metabolic acidosis (Acute) Subjective: Patient seen and examined. Notes improvement in diarrhea. States she has not had a bowel movement overnight or this morning. Complains of shortness of breath. - Physical Exam General: Alert, Oriented x3, Cooperative HEENT: Atraumatic, PERRLA, EOMI, Normocephalic Neck: Supple, No JVD, Negative Carotid Bruits Lungs: Diminished, - - Crackles bilateral bases Cardiovascular: Regular rate, Regular Rhythm, Normal S1, Normal S2, No murmurs Abdomen: Bowel Sounds Present, Soft, Non Tender, Non-Distended Extremities: No clubbing, No cyanosis, No edema, Capillary Refill Less than 3 Seconds Skin: No rashes, No breakdown Musculoskeletal: No Tenderness to Palpation of Joints or Extremities Neurological: Cranial nerves II-XII grossly intact, Neuro grossly intact Psych/Mental Status: Normal Affect, Appropriate Vital Signs Temp Pulse Resp BP Pulse Ox 96.9 F L 91 24 H 174/91 H 100 11/23/18 09:39 11/23/18 11:01 11/23/18 09:39 11/23/18 09:39 11/23/18 09:39 Oxygen Delivery Method Room Air Weight: 199 lb 15.983 oz Body Mass Index (BMI) 31.3 Finger Stick Blood Glucose 92 Intake and Output for Last 24 Hours 11/21/18 11/22/18 11/23/18 23:59 23:59 23:59 Intake Total 4915 / 4915 4984 / 4984 2217 / 2217 Output Total 300 / 300 400 / 400 Balance 4615 / 4615 4984 / 4984 1817 / 1817 Microbiology Past 72 Hours 11/21/18 03:15 Enteric Bacteriology - Final Stool 11/21/18 03:15 C. difficile DNA Amplification - Final Stool 11/21/18 03:15 Stool Lactoferrin - Final Stool Laboratory Tests Past 24 Hrs 11/23/18 11/23/18 11/23/18 07:28 08:25 11:30 Sodium Cancelled 145 Potassium Cancelled 5.1 Chloride Cancelled 123 H Carbon Dioxide Cancelled 11.0 L Anion Gap Cancelled 11 BUN Cancelled 61 H Creatinine Cancelled 3.44 H Estim Creat Clear Calc Cancelled 15.64 Est GFR (MDRD) Af Amer Cancelled 17 L Est GFR (MDRD) Non-Af Cancelled 14 L BUN/Creatinine Ratio Cancelled 17.7 Glucose Cancelled 102 Calcium Cancelled 8.1 L Ur Random Sodium Urine Creatinine 28.40 11/23/18 11:30 Sodium Potassium Chloride Carbon Dioxide Anion Gap BUN Creatinine Estim Creat Clear Calc Est GFR (MDRD) Af Amer Est GFR (MDRD) Non-Af BUN/Creatinine Ratio Glucose Calcium Ur Random Sodium 78 Urine Creatinine Medical Necessity - Tobacco Use Smoking Status: Former smoker Tobacco Use: Secondhand, Cigarettes Assessment/Plan All Active Problems (Last Reviewed 11/20/18 @ 23:33 by Tera Mercer MD) Acute diarrhea (Acute) Hyponatremia (Acute) Hypokalemia (Acute) High anion gap metabolic acidosis (Acute) Chest pain (Acute) H/O Dunbar's palsy (Resolved) Hx of cervical cancer (Resolved) 1. Acute gastroenteritis, suspect viral-C. difficile and enteric bacteriology negative. + lactoferrin. Ova and parasites pending. Started on Bentyl and Imodium. Improving. Discontinue Flagyl and Cipro. IV fluids. 2. Hypokalemia/hyponatremia-secondary to #1. Replaced per protocol. Resolved. Trend BMP. 3. Acute kidney injury, secondary to #1 and hydronephrosis due to right ureter stone-creatinine improving slowly with fluids. Nephrology consulted given renal ultrasound with bilateral hydronephrosis. CT of abdomen shows mild right hydronephrosis and hydroureter with probable 3 mm stone in the distal right ureter. Mild left hydronephrosis without definite left ureteral stone. Right renal cyst. Nonspecific fluid filled small bowel loops and colon without evidence of bowel obstruction. Dr. Strickland consulted. Continue IV fluids. 4. Hypertension-home lisinopril regimen on hold given LULY. PRN hydralazine for systolic blood pressure greater than 160. 5. Mild intermittent asthma-no acute exacerbation. 6. Shortness of breath-chest x-ray with mild prominent interstitial markings with no distinct focal airspace disease. Oxygen stable on room air. Patient had echo December 2017 which showed an EF of 60%, stage I diastolic dysfunction. Continue to monitor. DVT prophylaxis-heparin subcu This patient was seen by EMMETT Price under the supervision of Dr. Light.
--- NOTE | 2018-11-23 14:36 | PCM.CONS.R ---
Consultation - Renal 11/23/18 PCP/ Referring MD: Requesting physician: [] Primary care physician: Gerardo García MD Reason for Consultation:: LULY - History of Present Illness History of Present Illness: The patient is a 68 year old F last seen in the office with me in 2015 for acute renal failure from bilateral hydronephrosis following a hysterectomy. Creatinine was up to 1.7. She required a right ureteral stent back in 2015 that was subsequently removed. She has a history of cervical cancer status post radiation in 2014. She presents now with diffuse myalgias, malaise, fever and chills. She denied any nausea or vomiting but had anorexia. She had a temperature of 102.8 at home. She admits to diarrhea without abdominal pain. She denied chest pain, shortness of breath or cough. She denied any sick contacts at home. However her daughter is in the hospital with flulike symptoms. Creatinine on admission was 4.58 improved to 3.44 today. She has metabolic acidosis anion gap with bicarbonate of 11 and potassium 5.1. Creatinine was 1.02 on July 24, 2018. She states she is tolerating her diet and she is feeling better and would like to go home. She appears anxious. She denied any flank pain. Renal ultrasound revealed bilateral hydronephrosis right kidney measuring 13 cm left kidney at 12.8. This was followed up with a CT of the abdomen without IV contrast that showed right ureteral stone in the distal ureter. She currently is nonoliguric. Blood pressure is elevated due to anxiety today. Blood pressure has been low during her admission. - Allergies Allergies: Allergies pravastatin Allergy (Verified 11/20/18 18:44) Chest tightness sulfamethoxazole [From Bactrim] Allergy (Verified 11/20/18 18:44) Shortness of breath trimethoprim [From Bactrim] Allergy (Verified 11/20/18 18:44) Shortness of breath methylprednisolone Adverse Reaction (Verified 11/20/18 18:44) Pain in joints novacaine Allergy (Uncoded 11/20/18 18:44) Unknown - Current Medications Current Medications: Current Medications Albuterol Sulfate (Ventolin Aerosols) 2.5 mg INHALATION Q2H PRN PRN PRN Reason: sob/wheezing Last Admin: 11/21/18 03:34 Dose: 2.5 mg Dicyclomine HCl (Bentyl) 20 mg PO 4X/DAY CINDY Last Admin: 11/23/18 13:03 Dose: 20 mg Heparin Sodium (Porcine) (Heparin Na) 5,000 unit SC Q8 CINDY Last Admin: 11/23/18 13:31 Dose: 5,000 unit Hydralazine HCl (Apresoline Iv) 10 mg IV Q4H PRN PRN PRN Reason: BLOOD PRESSURE Sodium Bicarbonate 100 meq/ (Dextrose) 1,150 mls @ 75 mls/hr IV .[id number] [facility] Loperamide HCl (Imodium) 2 mg PO Q2H PRN PRN PRN Reason: Diarrhea Last Admin: 11/22/18 12:29 Dose: 2 mg Magnesium Hydroxide (Milk Of Magnesia) 30 ml PO DAILY PRN PRN PRN Reason: Constipation Ondansetron HCl (Zofran) 4 mg IV Q8H PRN PRN PRN Reason: NAUSEA Last Admin: 11/22/18 21:10 Dose: 4 mg Sodium Chloride () 5 - 15 ml IV UD PRN PRN Reason: SALINE FLUSH Last Admin: 11/22/18 21:13 Dose: 5 ml - Past Medical History Past Medical History (Chronic Problems): Chronic Problems (Last Reviewed 11/20/18 @ 23:33 by Tera Mercer MD) Hyperlipidemia (Chronic) HTN (hypertension) (Chronic) Mild intermittent asthma (Chronic) - Past Surgical History Surgical History: hysterectomy, - - Cholecystectomy; and Mass removed from kidney, rt ureteral stent plaement in 2016 - Social History Smoking Status: Former smoker - Family History Paternal Family History: Family History (Last Reviewed 11/21/18 @ 03:49 by Tera Mercer MD) Father CAD (coronary artery disease) History of coronary artery bypass surgery History Items: Heart Disease - at age 34yrs Patient Problems: Active and Suspected Problems (Last Reviewed 11/20/18 @ 23:33 by Tera Mercre MD) Acute diarrhea (Acute) Hyponatremia (Acute) Hypokalemia (Acute) High anion gap metabolic acidosis (Acute) - Physical Exam General: Alert, Oriented x3, Cooperative, - - Anxious appearing HEENT: PERRLA, EOMI Oral: Moist Mucosa Neck: Supple Lungs: Clear to auscultation Cardiovascular: Regular rate Abdomen: Bowel Sounds Present, Soft, Non Tender, Non-Distended Extremities: No edema Skin: No rashes Musculoskeletal: No Muscle Wasting Neurological: Cranial nerves II-XII grossly intact Psych/Mental Status: Normal Affect, Appropriate, Alert and oriented to time, place, person, mood and affect Vital Signs Temp Pulse Resp BP Pulse Ox 96.9 F L 91 24 H 174/91 H 100 11/23/18 09:39 11/23/18 11:01 11/23/18 09:39 11/23/18 09:39 11/23/18 09:39 Oxygen Delivery Method Room Air Weight: 90.718 kg Body Mass Index (BMI) 31.3 Finger Stick Blood Glucose 92 Intake and Output for Last 24 Hours 11/21/18 11/22/18 11/23/18 23:59 23:59 23:59 Intake Total 4915 / 4915 4984 / 4984 2217 / 2217 Output Total 300 / 300 400 / 400 Balance 4615 / 4615 4984 / 4984 1817 / 1817 Microbiology Past 72 Hours 11/21/18 03:15 Enteric Bacteriology - Final Stool 11/21/18 03:15 C. difficile DNA Amplification - Final Stool 11/21/18 03:15 Stool Lactoferrin - Final Stool Laboratory Tests Past 24 Hrs 11/23/18 11/23/18 11/23/18 07:28 08:25 11:30 Sodium Cancelled 145 Potassium Cancelled 5.1 Chloride Cancelled 123 H Carbon Dioxide Cancelled 11.0 L Anion Gap Cancelled 11 BUN Cancelled 61 H Creatinine Cancelled 3.44 H Estim Creat Clear Calc Cancelled 15.64 Est GFR (MDRD) Af Amer Cancelled 17 L Est GFR (MDRD) Non-Af Cancelled 14 L BUN/Creatinine Ratio Cancelled 17.7 Glucose Cancelled 102 Calcium Cancelled 8.1 L Ur Random Sodium Urine Creatinine 28.40 11/23/18 11:30 Sodium Potassium Chloride Carbon Dioxide Anion Gap BUN Creatinine Estim Creat Clear Calc Est GFR (MDRD) Af Amer Est GFR (MDRD) Non-Af BUN/Creatinine Ratio Glucose Calcium Ur Random Sodium 78 Urine Creatinine Clinical Impression(s) from Imaging Studies Renal Ultrasound 11/22/18 10:48 IMPRESSION: Bilateral hydronephrosis. Right renal cyst. Electronically Signed: Tanmay Baker DO at 23:37 EST Tel [phone], Service support , Chest X-Ray 11/23/18 10:35 IMPRESSION: Mild prominent interstitial markings with no distinct focal airspace disease. Electronically Signed: Dale Ferrari DO at 11:18 EST , Service support , Abdomen/Pelvis CT 11/23/18 11:17 IMPRESSION: 1. Mild right hydronephrosis and hydroureter with probable 3 mm stone in the distal right ureter. 2. Mild left hydronephrosis without definite left ureteral stone. 3. Right renal cyst. 4. No evidence of acute appendicitis. 5. Nonspecific fluid-filled small bowel loops and colon without evidence of bowel obstruction. Mild ileus or enteritis are possible. 6. Mild stranding of the serpiginous fat of the lower anterior abdominal wall. Electronically Signed: Flip Lowry MD at 13:17 EST Tel , Service support , Assessment/Plan All Active Problems (Last Reviewed 11/20/18 @ 23:33 by Tera Mercer MD) Acute diarrhea (Acute) Hyponatremia (Acute) Hypokalemia (Acute) High anion gap metabolic acidosis (Acute) Chest pain (Acute) H/O Dunbar's palsy (Resolved) Hx of cervical cancer (Resolved) 1. Acute kidney injury likely due to prerenal event, dehydration. Creatinine improved from 4.58 down to 3.44 today. However renal function has not returned back to baseline creatinine of 1.02 from July 2018 likely from obstructive uropathy with history of radiation exposure. CT of the abdomen without IV contrast showed distal right ureteral stone with bilateral hydronephrosis. History of bilateral hydronephrosis back in 2016 requiring right ureteral stent placement following her hysterectomy with cervical cancer. 2. Anion gap and NAG metabolic acidosis suspect due to GI loss, renal failure. Replace with bicarb drip. 3. hyperkalemia potassium 5.1 likely due to metabolic acidosis and renal failure. 4. Hypertension with stable blood pressures. Blood pressure mildly elevated which may be associated 5. Right ureteral stone found on CT of the abdomen currently asymptomatic. Urology consulted. 6. Hyponatremia sodium 126 improved to 145 today with IV hydration. 7. History of cervical cancer with radiation. 8. Diarrhea with negative C. difficile toxin and enterotoxins.
--- NOTE | 2018-11-23 14:41 | CON.PCM_ITS ---
Consultation - Renal 11/23/18 PCP/ Referring MD: Requesting physician: [] Primary care physician: Gerardo García MD Reason for Consultation:: LULY - History of Present Illness History of Present Illness: The patient is a 68 year old F last seen in the office with me in 2015 for acute renal failure from bilateral hydronephrosis following a hysterectomy. Creatinine was up to 1.7. She required a right ureteral stent back in 2015 that was subsequently removed. She has a history of cervical cancer status post radiation in 2014. She presents now with diffuse myalgias, malaise, fever and chills. She denied any nausea or vomiting but had anorexia. She had a temperature of 102.8 at home. She admits to diarrhea without abdominal pain. She denied chest pain, shortness of breath or cough. She denied any sick contacts at home. However her daughter is in the hospital with flulike symptoms. Creatinine on admission was 4.58 improved to 3.44 today. She has metabolic acidosis anion gap with bicarbonate of 11 and potassium 5.1. Creatinine was 1.02 on July 24, 2018. She states she is tolerating her diet and she is feeling better and would like to go home. She appears anxious. She denied any flank pain. Renal ultrasound revealed bilateral hydronephrosis right kidney measuring 13 cm left kidney at 12.8. This was followed up with a CT of the abdomen without IV contrast that showed right ureteral stone in the distal ureter. She currently is nonoliguric. Blood pressure is elevated due to anxiety today. Blood pressure has been low during her admission. - Allergies Allergies: Allergies pravastatin Allergy (Verified 11/20/18 18:44) Chest tightness sulfamethoxazole [From Bactrim] Allergy (Verified 11/20/18 18:44) Shortness of breath trimethoprim [From Bactrim] Allergy (Verified 11/20/18 18:44) Shortness of breath methylprednisolone Adverse Reaction (Verified 11/20/18 18:44) Pain in joints novacaine Allergy (Uncoded 11/20/18 18:44) Unknown - Current Medications Current Medications: Current Medications Albuterol Sulfate (Ventolin Aerosols) 2.5 mg INHALATION Q2H PRN PRN PRN Reason: sob/wheezing Last Admin: 11/21/18 03:34 Dose: 2.5 mg Dicyclomine HCl (Bentyl) 20 mg PO 4X/DAY CINDY Last Admin: 11/23/18 13:03 Dose: 20 mg Heparin Sodium (Porcine) (Heparin Na) 5,000 unit SC Q8 CINDY Last Admin: 11/23/18 13:31 Dose: 5,000 unit Hydralazine HCl (Apresoline Iv) 10 mg IV Q4H PRN PRN PRN Reason: BLOOD PRESSURE Sodium Bicarbonate 100 meq/ (Dextrose) 1,150 mls @ 75 mls/hr IV .[id number] [facility] Loperamide HCl (Imodium) 2 mg PO Q2H PRN PRN PRN Reason: Diarrhea Last Admin: 11/22/18 12:29 Dose: 2 mg Magnesium Hydroxide (Milk Of Magnesia) 30 ml PO DAILY PRN PRN PRN Reason: Constipation Ondansetron HCl (Zofran) 4 mg IV Q8H PRN PRN PRN Reason: NAUSEA Last Admin: 11/22/18 21:10 Dose: 4 mg Sodium Chloride () 5 - 15 ml IV UD PRN PRN Reason: SALINE FLUSH Last Admin: 11/22/18 21:13 Dose: 5 ml - Past Medical History Past Medical History (Chronic Problems): Chronic Problems (Last Reviewed 11/20/18 @ 23:33 by Tera Mercer MD) Hyperlipidemia (Chronic) HTN (hypertension) (Chronic) Mild intermittent asthma (Chronic) - Past Surgical History Surgical History: hysterectomy, - - Cholecystectomy; and Mass removed from kidney, rt ureteral stent plaement in 2016 - Social History Smoking Status: Former smoker - Family History Paternal Family History: Family History (Last Reviewed 11/21/18 @ 03:49 by Tera Mercer MD) Father CAD (coronary artery disease) History of coronary artery bypass surgery History Items: Heart Disease - at age 34yrs Patient Problems: Active and Suspected Problems (Last Reviewed 11/20/18 @ 23:33 by Tera Mercer MD) Acute diarrhea (Acute) Hyponatremia (Acute) Hypokalemia (Acute) High anion gap metabolic acidosis (Acute) - Physical Exam General: Alert, Oriented x3, Cooperative, - - Anxious appearing HEENT: PERRLA, EOMI Oral: Moist Mucosa Neck: Supple Lungs: Clear to auscultation Cardiovascular: Regular rate Abdomen: Bowel Sounds Present, Soft, Non Tender, Non-Distended Extremities: No edema Skin: No rashes Musculoskeletal: No Muscle Wasting Neurological: Cranial nerves II-XII grossly intact Psych/Mental Status: Normal Affect, Appropriate, Alert and oriented to time, place, person, mood and affect Vital Signs Temp Pulse Resp BP Pulse Ox 96.9 F L 91 24 H 174/91 H 100 11/23/18 09:39 11/23/18 11:01 11/23/18 09:39 11/23/18 09:39 11/23/18 09:39 Oxygen Delivery Method Room Air Weight: 90.718 kg Body Mass Index (BMI) 31.3 Finger Stick Blood Glucose 92 Intake and Output for Last 24 Hours 11/21/18 11/22/18 11/23/18 23:59 23:59 23:59 Intake Total 4915 / 4915 4984 / 4984 2217 / 2217 Output Total 300 / 300 400 / 400 Balance 4615 / 4615 4984 / 4984 1817 / 1817 Microbiology Past 72 Hours 11/21/18 03:15 Enteric Bacteriology - Final Stool 11/21/18 03:15 C. difficile DNA Amplification - Final Stool 11/21/18 03:15 Stool Lactoferrin - Final Stool Laboratory Tests Past 24 Hrs 11/23/18 11/23/18 11/23/18 07:28 08:25 11:30 Sodium Cancelled 145 Potassium Cancelled 5.1 Chloride Cancelled 123 H Carbon Dioxide Cancelled 11.0 L Anion Gap Cancelled 11 BUN Cancelled 61 H Creatinine Cancelled 3.44 H Estim Creat Clear Calc Cancelled 15.64 Est GFR (MDRD) Af Amer Cancelled 17 L Est GFR (MDRD) Non-Af Cancelled 14 L BUN/Creatinine Ratio Cancelled 17.7 Glucose Cancelled 102 Calcium Cancelled 8.1 L Ur Random Sodium Urine Creatinine 28.40 11/23/18 11:30 Sodium Potassium Chloride Carbon Dioxide Anion Gap BUN Creatinine Estim Creat Clear Calc Est GFR (MDRD) Af Amer Est GFR (MDRD) Non-Af BUN/Creatinine Ratio Glucose Calcium Ur Random Sodium 78 Urine Creatinine Clinical Impression(s) from Imaging Studies Renal Ultrasound 11/22/18 10:48 IMPRESSION: Bilateral hydronephrosis. Right renal cyst. Electronically Signed: Tanmay Baker DO at 23:37 EST Tel [phone], Service support , Chest X-Ray 11/23/18 10:35 IMPRESSION: Mild prominent interstitial markings with no distinct focal airspace disease. Electronically Signed: Dale Ferrari DO at 11:18 EST , Service support , Abdomen/Pelvis CT 11/23/18 11:17 IMPRESSION: 1. Mild right hydronephrosis and hydroureter with probable 3 mm stone in the distal right ureter. 2. Mild left hydronephrosis without definite left ureteral stone. 3. Right renal cyst. 4. No evidence of acute appendicitis. 5. Nonspecific fluid-filled small bowel loops and colon without evidence of bowel obstruction. Mild ileus or enteritis are possible. 6. Mild stranding of the serpiginous fat of the lower anterior abdominal wall. Electronically Signed: Flip Lowry MD at 13:17 EST Tel , Service support , Assessment/Plan All Active Problems (Last Reviewed 11/20/18 @ 23:33 by Tera Mercer MD) Acute diarrhea (Acute) Hyponatremia (Acute) Hypokalemia (Acute) High anion gap metabolic acidosis (Acute) Chest pain (Acute) H/O Dunbar's palsy (Resolved) Hx of cervical cancer (Resolved) 1. Acute kidney injury likely due to prerenal event, dehydration. Creatinine improved from 4.58 down to 3.44 today. However renal function has not returned back to baseline creatinine of 1.02 from July 2018 likely from obstructive uropathy with history of radiation exposure. CT of the abdomen without IV contrast showed distal right ureteral stone with bilateral hydronephrosis. History of bilateral hydronephrosis back in 2016 requiring right ureteral stent placement following her hysterectomy with cervical cancer. 2. Anion gap and NAG metabolic acidosis suspect due to GI loss, renal failure. Replace with bicarb drip. 3. hyperkalemia potassium 5.1 likely due to metabolic acidosis and renal failure. 4. Hypertension with stable blood pressures. Blood pressure mildly elevated which may be associated 5. Right ureteral stone found on CT of the abdomen currently asymptomatic. Urology consulted. 6. Hyponatremia sodium 126 improved to 145 today with IV hydration. 7. History of cervical cancer with radiation. 8. Diarrhea with negative C. difficile toxin and enterotoxins.
--- NOTE | 2018-11-23 16:01 | PCM.CONS.U ---
Reason for Consult Date of Consultation: 11/23/18 Reason for Consultation: Acute on chronic renal failure and hydronephrosis and ureteral calculi History of Present Illness: The patient is a 68 year old female who presented to the hospital with acute diarrhea dehydration, her creatinine was severely elevated she is being seen by nephrology. She relates having a history of hysterectomy for cervical cancer and radiation therapy in the past. She is required a stent in the past a few years ago. Her creatinine has been normal but now comes in with an elevated creatinine I think this is mostly prerenal from dehydration her creatinine is now slowly improving after appropriate hydration. CAT scan was done and she has a very small stone in the distal right ureter about 3 mm in size this will pass on its own no surgical intervention is necessary she does have a little bit of mild hydronephrosis on the left side this is chronic, and she has some mild to moderate hydronephrosis on the right side again this is chronic from prior radiation and she has been doing well without stents in the past. She only required a stent by Dr. Dumont for a few weeks. She did failed to follow-up in the office after he removed her stent. 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 Cervical cancer C53.9 History of hysterectomy Z90.710 Allergies pravastatin Allergy (Verified 11/20/18 18:44) Chest tightness sulfamethoxazole [From Bactrim] Allergy (Verified 11/20/18 18:44) Shortness of breath trimethoprim [From Bactrim] Allergy (Verified 11/20/18 18:44) Shortness of breath methylprednisolone Adverse Reaction (Verified 11/20/18 18:44) Pain in joints novacaine Allergy (Uncoded 11/20/18 18:44) Unknown Home Medications: Ambulatory Orders Medication Instructions Recorded Lisinopril [Zestril] 40 mg PO DAILY 02/12/15 albuterol sulfate HFA 90 1 puff INHALATION Q6H PRN 07/25/18 mcg/actuation aerosol inhaler fluticasone 50 mcg/actuation nasal 1 spray INTRANASAL BID g 07/25/18 spray,suspension Surgical History: Surgical History (Last Reviewed 11/20/18 @ 23:33 by Tera Mercer MD) History of cardiac catheterization Onset Date: ~01/08/18 Z98.890 normal coronaries History of cholecystectomy Z90.49 Surgical History: hysterectomy, - - Cholecystectomy; and Mass removed from kidney, rt ureteral stent plaement in 2016 Smoking Status: Former smoker Tobacco Use: Secondhand, Cigarettes - *Family History Paternal Family History: Family History (Last Reviewed 11/21/18 @ 03:49 by Tera Mercer MD) Father CAD (coronary artery disease) History of coronary artery bypass surgery History Items: Heart Disease - at age 34yrs Review of Systems Constitutional: Denies: Chills, Fever, Weight Change HEENT: Denies: Head Aches, Sinus Congestion, Sinus Drainage Cardiovascular: Denies: Chest Pain, Palpitations Respiratory: Reports: Cough, Wheezing. Denies: Shortness of breath at rest, Sputum production Gastrointestinal: Denies: Abdominal Pain, Nausea, Vomiting Genitourinary: Denies: Dysuria Musculoskeletal: Denies: Joint Pain, Joint Tenderness Skin: Denies: Rash, Wounds Neurological: Denies: Numbness, Tingling, Focal weakness Psychiatric: Denies: Anxiety, Depression, Homicidal Ideations, Suicidal Ideations Hematologic/ Lymphatic: Denies: Easy Bruising, Easy Bleeding Physical Exam - Physical Exam Vital Signs Temp 96.9 F L 11/23/18 09:39 Pulse 92 11/23/18 15:46 Resp 24 H 11/23/18 09:39 BP 174/91 H 11/23/18 09:39 Pulse Ox 100 11/23/18 09:39 Intake & Output 11/21/18 11/22/18 11/23/18 23:59 23:59 23:59 Intake Total 4915 / 4915 4984 / 4984 2217 / 2217 Output Total 300 / 300 400 / 400 Balance 4615 / 4615 4984 / 4984 1817 / 1817 Weight: 90.718 kg Intake: Oral 1740 / 1740 1560 / 1560 760 / 760 IV fluid/meds 3175 / 3175 3424 / 3424 1457 / 1457 Output: Urine 400 / 400 Urine/Stool Mix 300 / 300 Other: Number of Voids 3 3 1 Number of Bowel Movements 1 2 3 General: Alert, Oriented x3 HEENT: Atraumatic Oral: Moist Mucosa Neck: Supple Lungs: Normal air movement Cardiovascular: Regular rate Abdomen: Soft, Obese Microbiology Past 72 Hours 11/21/18 03:15 Enteric Bacteriology - Final Stool 11/21/18 03:15 C. difficile DNA Amplification - Final Stool 11/21/18 03:15 Stool Lactoferrin - Final Stool Laboratory Tests Past 24 Hrs 11/23/18 11/23/18 11/23/18 07:28 08:25 11:30 Sodium Cancelled 145 Potassium Cancelled 5.1 Chloride Cancelled 123 H Carbon Dioxide Cancelled 11.0 L Anion Gap Cancelled 11 BUN Cancelled 61 H Creatinine Cancelled 3.44 H Estim Creat Clear Calc Cancelled 15.64 Est GFR (MDRD) Af Amer Cancelled 17 L Est GFR (MDRD) Non-Af Cancelled 14 L BUN/Creatinine Ratio Cancelled 17.7 Glucose Cancelled 102 Calcium Cancelled 8.1 L Ur Random Sodium Urine Creatinine 28.40 11/23/18 11:30 Sodium Potassium Chloride Carbon Dioxide Anion Gap BUN Creatinine Estim Creat Clear Calc Est GFR (MDRD) Af Amer Est GFR (MDRD) Non-Af BUN/Creatinine Ratio Glucose Calcium Ur Random Sodium 78 Urine Creatinine Assessment/Plan All Active Problems (Last Reviewed 11/20/18 @ 23:33 by Tera Mercer MD) Cervical cancer (Acute) Bilateral hydronephrosis (Acute) Acute diarrhea (Acute) Hyponatremia (Acute) Hypokalemia (Acute) High anion gap metabolic acidosis (Acute) Chest pain (Acute) H/O Dunbar's palsy (Resolved) Hx of cervical cancer (Resolved) 68-year-old female with multiple medical problems who presents with acute dehydration secondary to dehydration, from diarrhea. She has a severe cough respiratory infection. CAT scan reviewed spoke to the patient today her creatinine slowly improving. I do not think emergent stenting necessary. She has a small stone that she is passing this should pass on its own. On discharge she can follow-up with her primary care physician and probably should have her creatinine and labs checked ever creatinine stays high then I can see her in the office and possibly arrange for placement of stents in her kidneys hopefully this will be only for short period time. 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 If you have any questions please let me know but otherwise she should follow-up with her PCP for a BMP at the creatinine still high then I can see her in the office for a stent placements.
[2018-11-24 02:55] VITALS: PULSE 95
[2018-11-24 03:02] VITALS: BP 145/80; PULSE 105; RESP 20; TEMP 37.2; O2SAT 97
[2018-11-24] MEDS: Heparin Injection (Vial) 5,000 UNIT/ML VIAL 5000 UNIT SC (05:23)
[2018-11-24 06:44] LABS: Albumin, Serum 1.5 g/dL (3.2-5.0); BUN 51 mg/dL (7-18); BUN/Creat Ratio 14.9 RATIO (10-20); Calcium,Total 7.8 mg/dL (8.5-10.1); Chloride 118 mmol/L (98-107); Creatinine, Serum 3.43 mg/dL (0.55-1.02); EST Glomerular Filtration Rate 14 mL/min (>60); Est Glom Filt Rate - Afr Amer 17 mL/min (>60); Estimated Creatinine Clearance 15.69 ml/min; Glucose 108 mg/dL (74-106); Phosphorus 2.6 mg/dL (2.5-4.9); Potassium 4.2 mmol/L (3.5-5.1); Sodium Level 144 mmol/L (136-145)
[2018-11-24 07:05] VITALS: PULSE 93
[2018-11-24 08:57] VITALS: BP 158/93; PULSE 93; RESP 16; TEMP 36.8; O2SAT 98
[2018-11-24] MEDS: Dicyclomine 10 MG Capsule 20 MG PO (08:57)
[2018-11-24 11:03] VITALS: PULSE 103
--- NOTE | 2018-11-24 11:06 | DCINST_ITS ---
- Discharge Diagnoses Current Active Problems: Current Active and Chronic Problems (Last Reviewed 11/20/18 @ 23:33 by Tera Mercer MD) Acute diarrhea (Acute) Hyponatremia (Acute) Hypokalemia (Acute) High anion gap metabolic acidosis (Acute) You will use the following diet at home:: Cardiac Discharge Activity: Return to Normal Activity Call your doctor if you observe: Fever of 101 or Higher, Inability to urinate, Uncontrolled pain Allergies/Adverse Reactions: Allergies pravastatin Allergy (Verified 11/20/18 18:44) Chest tightness sulfamethoxazole [From Bactrim] Allergy (Verified 11/20/18 18:44) Shortness of breath trimethoprim [From Bactrim] Allergy (Verified 11/20/18 18:44) Shortness of breath methylprednisolone Adverse Reaction (Verified 11/20/18 18:44) Pain in joints novacaine Allergy (Uncoded 11/20/18 18:44) Unknown Medications to take at Discharge albuterol sulfate HFA 90 mcg/actuation aerosol inhaler 1 puff INHALATION Q6H PRN 07/25/18 fluticasone 50 mcg/actuation nasal spray,suspension 1 spray INTRANASAL BID g 07/25/18 Amlodipine [Norvasc] 10 mg PO DAILY #30 tablet 11/24/18 Loperamide [Imodium] 2 mg PO Q2H PRN PRN capsule 11/24/18 Sodium Bicarbonate 650 mg PO BID #60 tablet 11/24/18 The following prescriptions were given: Amlodipine [Norvasc] 10 mg PO DAILY #30 tablet Sodium Bicarbonate 650 mg PO BID #60 tablet Orders to be completed after discharge: Basic Metabolic Profile (BMP) Time Frame: 3 Days, Location: Laboratory Primary Care Physician: Gerardo García Chi, MD [Primary Care Provider] - Please follow up with your Primary Care Physician in: 1 Week Test Results: Test results from this visit will be discussed in further detail at your follow- up appointment, if applicable. Please Follow Up With: Luz Maria Matthews DO When: 1-2 Weeks Please Follow Up With: Joshua Strickland MD When: If kidney function worsens or does not improve Proposed Discharge Date: 11/24/18
--- NOTE | 2018-11-24 11:06 | PCM.DC.SUM ---
Discharge Date and Diagnosis Date of Admission: 11/20/18 Date of Discharge: 11/24/18 - Primary Discharge Diagnosis Active and Suspected Problems (Last Reviewed 11/20/18 @ 23:33 by Tera Mercer MD) 1. Acute gastroenteritis, suspect viral 2. Hypokalemia/hyponatremia, secondary to #1-resolved 3. Acute kidney injury secondary to dehydration 4. Right ureteral stone with bilateral hydronephrosis 5. Hypertension 6. Mild intermittent asthma 7. History of cervical cancer status post hysterectomy and radiation 8. History of obstructive uropathy status post right ureteral stent placement and subsequent removal - Secondary Discharge Diagnosis Chronic Problems (Last Reviewed 11/20/18 @ 23:33 by Tera Mercer MD) Hyperlipidemia (Chronic) HTN (hypertension) (Chronic) Mild intermittent asthma (Chronic) Hospital Course and Treatment Imaging Results: Diagnostic Data Renal Ultrasound 11/22/18 10:48 IMPRESSION: Bilateral hydronephrosis. Right renal cyst. Electronically Signed: Tanmay Baker DO at 23:37 EST Tel [phone], Service support , Chest X-Ray 11/23/18 10:35 IMPRESSION: Mild prominent interstitial markings with no distinct focal airspace disease. Electronically Signed: Dale Ferrari DO at 11:18 EST , Service support , Abdomen/Pelvis CT 11/23/18 11:17 IMPRESSION: 1. Mild right hydronephrosis and hydroureter with probable 3 mm stone in the distal right ureter. 2. Mild left hydronephrosis without definite left ureteral stone. 3. Right renal cyst. 4. No evidence of acute appendicitis. 5. Nonspecific fluid-filled small bowel loops and colon without evidence of bowel obstruction. Mild ileus or enteritis are possible. 6. Mild stranding of the serpiginous fat of the lower anterior abdominal wall. Electronically Signed: Flip Lowry MD at 13:17 EST Tel , Service support , Dr. Matthews-Nephrology Dr. Strickland- Urology Operations: None Procedures: None Summary of Care Provided: The patient is a 68 year old F admitted 11/20/18 due to intractable diarrhea. 1. Acute gastroenteritis, suspect viral-C. difficile and enteric bacteriology negative. + lactoferrin. Ova and parasites pending. Flagyl and Cipro discontinued. Diarrhea resolved. Patient can continue Imodium as needed for further diarrhea. 2. Hypokalemia/hyponatremia, secondary to #1-resolved. 3. Acute kidney injury secondary to dehydration-creatinine improving. Nephrology consulted given renal ultrasound with bilateral hydronephrosis. Nephrology suspects LULY is pre-renal due to dehydration. CT of abdomen shows mild right hydronephrosis and hydroureter with probable 3 mm stone in the distal right ureter. Mild left hydronephrosis without definite left ureteral stone. Right renal cyst. Nonspecific fluid filled small bowel loops and colon without evidence of bowel obstruction. Patient will repeat BMP in 3 days. Follow-up with Dr. Matthews in 1-2 weeks. 4. Right ureteral stone with bilateral hydronephrosis-Dr. Strickland consulted. Urology does not feel intervention of right ureteral stone is necessary at this time. If kidney function worsens or does not improve, patient will follow up with Dr. Strickland in office for stent placement. 5. Hypertension-patient's lisinopril regimen discontinued due to acute renal failure. Patient's blood pressure above goal. Will discharge on amlodipine 10 mg daily. 6. Mild intermittent asthma-no acute exacerbation. 7. History of cervical cancer status post hysterectomy and radiation 8. History of obstructive uropathy status post right ureteral stent placement and subsequent removal (2015)- Renal US at that time showed bilateral hydronephrosis as well. 9. Shortness of breath-Resolved. Chest x-ray with mild prominent interstitial markings with no distinct focal airspace disease. Oxygen stable on room air. Patient had echo December 2017 which showed an EF of 60%, stage I diastolic dysfunction. General: Alert, Oriented x3, Cooperative HEENT: Atraumatic, PERRLA, EOMI, Normocephalic Neck: Supple, No JVD, Negative Carotid Bruits Lungs: Diminished, clear to auscultation Cardiovascular: Regular rate, Regular Rhythm, Normal S1, Normal S2, No murmurs Abdomen: Bowel Sounds Present, Soft, Non Tender, Non-Distended Extremities: No clubbing, No cyanosis, No edema, Capillary Refill Less than 3 Seconds Skin: No rashes, No breakdown Musculoskeletal: No Tenderness to Palpation of Joints or Extremities Neurological: Cranial nerves II-XII grossly intact, Neuro grossly intact Psych/Mental Status: Normal Affect, Appropriate Patient seen and examined prior to discharge. Physical assessment as noted above. Patient is stable for discharge with follow up recommendations as noted above. This patient was seen by EMMETT Price under the supervision of Dr. Light. - Physical Exam Vital Signs Temp Pulse Resp BP Pulse Ox 98.2 F 93 16 158/93 H 98 11/24/18 08:57 11/24/18 08:57 11/24/18 08:57 11/24/18 08:57 11/24/18 08:57 Oxygen Delivery Method Room Air Weight: 199 lb 15.983 oz Body Mass Index (BMI) 31.3 Finger Stick Blood Glucose 92 Intake and Output for Last 24 Hours 11/22/18 11/23/18 11/24/18 23:59 23:59 23:59 Intake Total 4984 / 4984 3118 / 3118 1259 / 1259 Output Total 400 / 400 600 / 600 Balance 4984 / 4984 2718 / 2718 659 / 659 Microbiology Past 72 Hours 11/21/18 03:15 Enteric Bacteriology - Final Stool Laboratory Tests Past 24 Hrs 11/23/18 11/23/18 11/24/18 11:30 11:30 05:48 Sodium 144 Potassium 4.2 Chloride 118 H Carbon Dioxide 14.0 L BUN 51 H Creatinine 3.43 H Estim Creat Clear Calc 15.69 Est GFR (MDRD) Af Amer 17 L Est GFR (MDRD) Non-Af 14 L BUN/Creatinine Ratio 14.9 Glucose 108 H Calcium 7.8 L Phosphorus 2.6 Albumin 1.5 L Ur Random Sodium 78 Urine Creatinine 28.40 Discharge Diet: Low fat/ Low Cholesterol Discharge Activity: Return to Normal Activity Call your doctor if you observe: Fever of 101 or Higher, Inability to urinate, Uncontrolled pain Home Medications: Medications to take at Discharge albuterol sulfate HFA 90 mcg/actuation aerosol inhaler 1 puff INHALATION Q6H PRN 07/25/18 fluticasone 50 mcg/actuation nasal spray,suspension 1 spray INTRANASAL BID g 07/25/18 Amlodipine [Norvasc] 10 mg PO DAILY #30 tablet 11/24/18 Loperamide [Imodium] 2 mg PO Q2H PRN PRN capsule 11/24/18 Sodium Bicarbonate 650 mg PO BID #60 tablet 11/24/18 Following Prescrptions Were Given to Patient: Amlodipine [Norvasc] 10 mg PO DAILY #30 tablet Sodium Bicarbonate 650 mg PO BID #60 tablet Other Amb Orders: Basic Metabolic Profile (BMP) Time Frame: 3 Days, Location: Laboratory Primary Care Physician: Gerardo García Chi, MD [Primary Care Provider] - Please follow up with your Primary Care Physician in: 1 Week Please Follow Up With: Luz Maria Matthews DO When: 1-2 Weeks Please Follow Up With: Joshua Strickland MD When: If kidney function worsens or does not improve Disposition: Home Minutes spent on discharge:: 35 Patient Condition:: Stable Medical Necessity - Tobacco Use Smoking Status: Former smoker Tobacco Use: Secondhand, Cigarettes Meaningful Use Info Meaningful Use Diagnoses (Choose all that apply): None applicable
[2018-11-24] MEDS: amLODIPine 10 MG Tablet PO (11:27)
--- NOTE | 2018-11-25 16:17 | CASEMGMT ---
ANISH KIRKPATRICK Discharge F/U Phone Call LACE: 12 Strata: 4 Discharge date: 11/24/18 Call date: 11/25/18 Call time: [phone] Attempted to reach pt without success at this time, this RN KAYA is unable to leave a message as pt's voicemail box has not been set up yet. SStaten RN CM Admission dx: Acute diarrhea
== END 2018-11-24 12:44 | disposition home or self-care (01) | DRG 392 ==
LOC: ED 21:23 → PCU 23:37
PROVIDERS: Nurse Practitioner Family; Admitting Provider Hospitalist; Emergency Provider Emergency Medicine; Family Provider Family Medicine Geriatric Medicine; PCP Family Medicine Geriatric Medicine; Visit Provider Internal Medicine
DX: A08.4 Viral intestinal infection, unspecified (principal); E87.1 Hypo-osmolality and hyponatremia; N17.9 Acute kidney failure, unspecified; E87.2 Acidosis; N13.30 Unspecified hydronephrosis; N20.1 Calculus of ureter; E86.0 Dehydration; E87.6 Hypokalemia; I10 Essential (primary) hypertension; J45.20 Mild intermittent asthma, uncomplicated; E78.5 Hyperlipidemia, unspecified; Z85.41 Personal history of malignant neoplasm of cervix uteri; Z90.710 Acquired absence of both cervix and uterus; Z92.3 Personal history of irradiation; Z87.891 Personal history of nicotine dependence
CPT/HCPCS: 36415; 71045; 74176; 76770; 80048; 80069; 81001; 82009; 82570; 83605; 83630; 83735; 84300; 85025; 85027; 87177; 87209; 87493; 87506; 94640; 99283; J7030; A4216; J0744; J2405

== ENCOUNTER 2018-11-26 00:35 | Inpatient (IN) | payer MEDICARE, SELFPAY ==
[2018-11-21 01:04] VITALS: BMI 31.3
[2018-11-26] VITALS (27 sets, daily range): BP systolic 84–126; BP diastolic 51–87; PULSE 84–154; RESP 16–28; TEMP 36.1–39.6; O2SAT 94–100; BMI 36.5; BMI 32.9
--- NOTE | 2018-11-26 00:39 | EKG12_ITS ---
Test Reason : WEAKNESS Blood Pressure : / mmHG Vent. Rate : 150 BPM Atrial Rate : 150 BPM P-R Int : 122 ms QRS Dur : 076 ms QT Int : 270 ms P-R-T Axes : 042 009 071 degrees QTc Int : 426 ms Sinus tachycardia with Premature atrial complexes Low voltage QRS (LIMB LEADS) Confirmed by DEON CHRISTIAN, RICHARD ([id number]), film and video editor COOPER MARTINEZ ([id number] on 11/27/2018 3:27:51 PM Referred By: RAINE Confirmed By:RICHARD CHAVARRIA MD
--- NOTE | 2018-11-26 00:39 | RAD_ITS ---
STUDY: X-RAY CHEST REASON FOR EXAM: Female, 68 years old. Weakness TECHNIQUE: Single frontal view of the chest. COMPARISON: 11/23/2018 FINDINGS: The lungs are clear and expanded. There is no demonstrated pleural abnormality. Normal size heart. Normal mediastinum and wayne. Normal visualized pulmonary arteries. Normal visualized aortic arch and descending thoracic aorta. Normal visualized thoracic spine. Normal visualized ribs, clavicles, and shoulders. There is no demonstrated abnormality of the visualized soft tissue structures of the upper abdomen. RAD/Chest 1 View (Portable) IMPRESSION: No acute pulmonary findings. Electronically Signed: Agustin Winslow MD at 1:55 EST Tel , Service support ,
--- NOTE | 2018-11-26 00:42 | ED.VISSUMM ---
- ER Visit Summary Date of Service: 11/26/18 Chief Complaint: Generalized weakness, fever, cough History of Present Illness: The patient is a 68 F who was recently admitted to the hospital with diarrhea and discharged 2 days ago presents to the emergency department with increasing weakness, fever, and cough. Patient states she was doing well on discharge. States over the past 24 hours, she is really decompensated. She had increasing weakness, generalized malaise, myalgias, difficulty getting around. She states she had fever and mild cough. She denies any chest pain. She has had some shortness of breath. She denies abdominal pain. She denies any dysuria. Patient was hospitalized with a viral diarrhea and acute kidney injury. She was seen by nephrology. Her kidney function had improved prior to discharge. She does have history of prior ovarian cancer. She is not currently on any chemotherapy. Physical Examination: Vital signs reviewed General: Well-nourished, well-developed Head: Normocephalic, atraumatic Eyes: Pupils equal and reactive, extraocular muscles intact Neck, supple, no lymphadenopathy Heart: Regular tachycardic te and rhythm Respiratory: No distress, diminished throughout Abdomen: Soft, nontender, nondistended, no peritoneal signs Back: Nontender Extremities: Nontender, no edema, no cords Skin: Normal color no rash Neuro: Alert and oriented, no focal or lateralizing deficits Test Results: [] Emergency Department Course and Treatment: [] The patient presents with fever, tachycardia, and tachypnea. Sepsis workup was pursued. Her abdomen was soft and nontender. Her lung sounds were diminished, but there is no focal change. Patient had a temperature sensing Roberts that was placed. Her T-max was 103.4. She was given Tylenol and 30 cc/kg of fluids. The patient does have evidence of acute kidney injury with a creatinine of almost 4. She also has a markedly diminished bicarb. I did obtain a blood gas which was relatively unremarkable except for the diminished PCO2. The patient is compensating. Her chest x-ray does not show any evidence of acute infiltrative process. She however does have a significant leukocytosis of almost 27,000. Her urine does show evidence of infection. I did review her prior admission. She was seen by nephrology. It was thought that she likely had some intrinsic kidney injury from her history of prior malignancy and chronic hydronephrosis. I am concerned that she likely now has urosepsis. She was started on broad-spectrum antibiotic. Her lactate was normal. Blood cultures were obtained. With fluids and antipyretics, she does look markedly improved. She has not been hypotensive. The patient will be admitted to the ICU at this time. She was discussed with the hospitalist. Treatment Plan: [] Disposition: Admission Impression: 1. Severe sepsis 2. Acute kidney injury 3. Acute cystitis 4. Anion gap metabolic acidosis This note was generated with [employer] dictation software. It may contain incorrect words, spelling, and punctuation that were not noted in review of the chart prior to signing ED Disposition - Plan for ED Patient: Chief Complaint: Weakness
[2018-11-26] MEDS: Ipratropium/Albuterol Sulfate 3 ML AMPUL.NEB INHALATION (00:54)
[2018-11-26] MEDS: Acetaminophen 500 MG Tablet 1000 MG PO (00:55)
[2018-11-26 01:35] LABS: Absolute Lymphocyte Count 1.05 X10^3/ul (0.83-4.51); Absolute Neutrophil Count 24.7 X10^3/uL (2.0-7.7); Basophil# 0.06 X10^3/uL; Basophil% 0.2 % (0-1); Eosinophil# 0.01 X10^3/uL; Hematocrit 35.9 % (37-47); Hemoglobin 12.1 g/dl (12.0-15.0); Lymphocyte # 1.05 X10^3/ul (4.0); Lymphocyte % 3.9 % (19-41); Mean Corp Hgb Conc 33.7 g/gl (32-36); Mean Corpuscular Hgb 31.8 pg (27.0-32.0); Mean Corpuscular Volume 94.5 fL (81-99); Mean Platelet Vol. 10.4 fl (6.2-12.0); Monocyte# 0.54 X10^3/uL; Neutrophil # 24.67 X10^3/uL (2.7-7.7); Neutrophil % 92.4 % (47-70); Platelet Count 387 K/mm3 (150-450); RBC Distribution Width CV 16.5 % (11.6-14.6); White Blood Count 26.7 K/mm3 (4.4-11.0)
[2018-11-26 01:37] LABS: Mucous, Urine 0 SEEN /hpf (<or=2+); Red Blood Cells-Urine 0 SEEN /hpf (0-5); Squamous Epithelial Cells - UA 0 SEEN /hpf (5-10)
[2018-11-26 01:38] LABS: Color, Urine Yellow (Yellow); Glucose, Dipstick Normal (Normal); Ketone-Dipstick Negative (Negative); Leukocyte Esterase-Dipstick 500 /ul (Negative); Nitrite-Dipstick Positive (Negative); Occult Blood-Urine 150 /ul (Negative); Protein-Dipstick 30 mg/dl (Negative); Urine Bilirubin Dipstick Negative (Negative); Urine Clarity Sl. Cloudy (Clear); Urine Urobilinogen Normal (Normal)
[2018-11-26 01:38] LABS: POSITIVE COUNT NO
[2018-11-26 01:39] LABS: Differential Indicated SCAN CRITERIA MET; POSITIVE DIFFERENTIAL YES; POSITIVE MORPHOLOGY YES
[2018-11-26 01:43] LABS: ALB/GLOB Ratio 0.4 RATIO (0.9-2.4); AST(SGOT) 24 U/L (15-37); Alanine Aminotransfer ALT/SGPT 13 U/L (13-56); Albumin, Serum 1.7 g/dL (3.2-5.0); Alkaline Phosphatase 122 U/L (45-117); Anion Gap 17 (5-15); BUN 46 mg/dL (7-18); BUN/Creat Ratio 11.6 RATIO (10-20); Calcium,Total 7.4 mg/dL (8.5-10.1); Chloride 107 mmol/L (98-107); Creatinine, Serum 3.98 mg/dL (0.55-1.02); EST Glomerular Filtration Rate 12 mL/min (>60); Est Glom Filt Rate - Afr Amer 15 mL/min (>60); Estimated Creatinine Clearance 13.02 ml/min; Globulin 4.6 g/dL (2.2-4.2); Glucose 83 mg/dL (74-106); Potassium 3.7 mmol/L (3.5-5.1); Protein, Total 6.3 g/dL (6.4-8.2); Sodium Level 137 mmol/L (136-145)
[2018-11-26] MEDS: 0.9% Normal Saline 1,000 ML 999 ML IV ×2 (01:46→02:18)
[2018-11-26 01:50] LABS: Lactic Acid 1.7 mmol/L (0.4-2.0)
[2018-11-26 01:52] LABS: White Blood Cells 50-100 SEEN /hpf (0-5)
[2018-11-26 01:53] LABS: Bacteria 2+ /hpf (None Seen)
[2018-11-26 02:11] LABS: Allen Test POS; Base Excess -15 mmol/L (-2 to +2); Bicarbonate 10.5 mmol/L (22-26); Blood Gas Specimen Type ART; O2 Delivery Device Room Air; PO2 81 mmHG (75-100); SITE L Radial; SO2 96 % (95-99); Time Given 200; Total Carbon Dioxide 11 mmol/L; pCO2 17.9 mmHg (35-45); pH 7.38 (7.35-7.45)
[2018-11-26 02:12] LABS: Anisocytosis RARE; Macrocytosis RARE; Platelet Estimate ADEQUATE (ADEQ)
--- NOTE | 2018-11-26 02:27 | CPS ---
aero never given due to pt hr per dr order
--- NOTE | 2018-11-26 02:43 | PCM.HP.STD ---
Problem List (1) Urinary tract infection Status: Acute (2) Sepsis Status: Acute (3) Bilateral hydronephrosis Status: Chronic (4) Hyponatremia Status: Chronic (5) Hypokalemia Status: Chronic (6) Hyperlipidemia Status: Chronic Qualifiers: (7) HTN (hypertension) Status: Chronic Qualifiers: History of Present Illness Date of Admission: 11/26/18 Chief Complaint: generalized weakness, febrile illness The patient is a 68 year old female patient discharged two days ago from our facility presents to the ER with acute febrile illness. She has weakness, fever and cough. She believes she was doing well at the time she was discharged but over the past 24 hrs decompensated quickly. She has malaise, myalgias and difficulty ambulating.She denies dysuria or abdominal pain. Her recent hospitalization was due to viral diarrhea and acute kidney injury. She was seen by nephrology. Kidney function improved before she was discharged. Her temp is 103, heart rate is 140-150 and respiratory rate was 28 at time of arrival. She meets severe sepsis criteria and will be admitted to ICU. UA is positive and most likely source. 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 Cervical cancer C53.9 History of hysterectomy Z90.710 Allergies pravastatin Allergy (Verified 11/26/18 00:41) Chest tightness sulfamethoxazole [From Bactrim] Allergy (Verified 11/26/18 00:41) Shortness of breath trimethoprim [From Bactrim] Allergy (Verified 11/26/18 00:41) Shortness of breath methylprednisolone Adverse Reaction (Verified 11/26/18 00:41) Pain in joints novacaine Allergy (Uncoded 11/26/18 00:41) Unknown Home Medications: Ambulatory Orders Medication Instructions Recorded albuterol sulfate HFA 90 1 puff INHALATION Q6H PRN 07/25/18 mcg/actuation aerosol inhaler fluticasone 50 mcg/actuation nasal 1 spray INTRANASAL BID g 07/25/18 spray,suspension Amlodipine [Norvasc] 10 mg PO DAILY #30 tablet 11/24/18 Loperamide [Imodium] 2 mg PO Q2H PRN PRN capsule 11/24/18 Sodium Bicarbonate 650 mg PO BID #60 tablet 11/24/18 Surgical History: Surgical History (Last Reviewed 11/20/18 @ 23:33 by Tera Mercer MD) History of cardiac catheterization Onset Date: ~01/08/18 Z98.890 normal coronaries History of cholecystectomy Z90.49 Surgical History: hysterectomy, - - Cholecystectomy; and Mass removed from kidney, rt ureteral stent plaement in 2016 Smoking Status: Former smoker - *Family History Paternal Family History: Family History (Last Reviewed 11/21/18 @ 03:49 by Tera Mercer MD) Father CAD (coronary artery disease) History of coronary artery bypass surgery History Items: Heart Disease - at age 32yrs Review of Systems Constitutional: Reports: Chills, Fever, Malaise, Weakness, Fatigue. Denies: Weight Change HEENT: Denies: Head Aches, Sinus Congestion, Sinus Drainage Cardiovascular: Denies: Chest Pain, Palpitations Respiratory: Reports: Cough. Denies: Shortness of breath at rest, Sputum production Gastrointestinal: Denies: Abdominal Pain, Nausea, Vomiting Genitourinary: Denies: Dysuria Musculoskeletal: Reports: Muscle pain. Denies: Joint Pain, Joint Tenderness Skin: Denies: Rash, Wounds Neurological: Denies: Numbness, Tingling, Focal weakness Psychiatric: Denies: Anxiety, Depression, Homicidal Ideations, Suicidal Ideations Hematologic/ Lymphatic: Denies: Easy Bruising, Easy Bleeding VTE Information - Inpt Only VTE Present on Admission: No VTE Mechan Device Prophylaxis: SCD's VTE Pharm Prophylaxis ordered?: No Patient Problems: Active and Suspected Problems (Last Reviewed 11/20/18 @ 23:33 by Tera Mercer MD) Urinary tract infection (Acute) Sepsis (Acute) - Physical Exam General: Alert, Cooperative, Confused HEENT: Atraumatic, Normocephalic Neck: Supple Lungs: Clear to auscultation, Normal air movement Cardiovascular: Regular rate, Normal S1, Normal S2, No murmurs Abdomen: Bowel Sounds Present, Soft, Non Tender, Obese Extremities: No edema, Capillary Refill Less than 3 Seconds Skin: No rashes Musculoskeletal: No Tenderness to Palpation of Joints or Extremities Neurological: Neuro grossly intact Psych/Mental Status: Normal Affect, Appropriate Vital Signs Temp Pulse Resp BP Pulse Ox 102.7 F H 151 H 28 H 110/78 96 11/26/18 01:53 11/26/18 02:27 11/26/18 01:53 11/26/18 01:53 11/26/18 01:53 Oxygen Delivery Method Room Air Weight: 226 lb 3.108 oz Body Mass Index (BMI) 36.5 Finger Stick Blood Glucose 92 Microbiology Past 72 Hours 11/26/18 00:55 Influenza Types A,B Direct FA (LEVI) - Final Mucosa - Nasopharyngeal Laboratory Tests Past 24 Hrs 11/26/18 11/26/18 11/26/18 01:00 01:00 01:00 WBC 26.7 H RBC 3.80 L Hgb 12.1 Hct 35.9 L MCV 94.5 MCH 31.8 MCHC 33.7 RDW 16.5 H RDW Differential 57.0 H Plt Count 387 MPV 10.4 Immature Gran % (Auto) 1.500 H Neut % (Auto) 92.4 H Lymph % (Auto) 3.9 L [place] % (Auto) 2.0 Eos % (Auto) 0.0 Baso % (Auto) 0.2 Absolute Neuts (auto) 24.7 H Absolute Lymphs (auto) 1.05 Total Counted Not Reportable Differential Comment SEE COMMENT Diff Path Review May foll Platelet Estimate ADEQUATE Anisocytosis RARE Macrocytosis RARE Specimen Type Sample Site pH Bicarbonate Actual POC Total CO2 Base Excess O2 Saturation ABG pCO2 ABG pO2 [place] Test O2 Delivery Device Blood Gas Notified Whom Blood Gas Notified Time Sodium 137 Potassium 3.7 Chloride 107 Carbon Dioxide 13.0 L Anion Gap 17 H BUN 46 H Creatinine 3.98 H Estim Creat Clear Calc 13.02 Est GFR (MDRD) Af Amer 15 L Est GFR (MDRD) Non-Af 12 L BUN/Creatinine Ratio 11.6 Glucose 83 Lactic Acid 1.7 Calcium 7.4 L Total Bilirubin 1.20 H AST 24 ALT 13 Alkaline Phosphatase 122 H Total Protein 6.3 L Albumin 1.7 L Globulin 4.6 H Albumin/Globulin Ratio 0.4 L Urine Color Urine Clarity Urine pH Ur Specific [place] Urine Protein Urine Glucose (UA) Urine Ketones Urine Occult Blood Urine Nitrite Urine Bilirubin Urine Urobilinogen Ur Leukocyte Esterase Urine RBC Urine WBC Ur Squamous Epith Cells Urine Bacteria Urine Mucus Acetone Level 11/26/18 11/26/18 11/26/18 01:20 02:00 02:03 WBC RBC Hgb Hct MCV MCH MCHC RDW RDW Differential Plt Count MPV Immature Gran % (Auto) Neut % (Auto) Lymph % (Auto) [place] % (Auto) Eos % (Auto) Baso % (Auto) Absolute Neuts (auto) Absolute Lymphs (auto) Total Counted Differential Comment Diff Path Review Platelet Estimate Anisocytosis Macrocytosis Specimen Type ART Sample Site L Radial pH 7.38 Bicarbonate Actual 10.5 L POC Total CO2 11 Base Excess -15 L O2 Saturation 96 ABG pCO2 17.9 L* ABG pO2 81 [place] Test POS O2 Delivery Device Room Air Blood Gas Notified Whom ED Blood Gas Notified Time 200 Sodium Potassium Chloride Carbon Dioxide Anion Gap BUN Creatinine Estim Creat Clear Calc Est GFR (MDRD) Af Amer Est GFR (MDRD) Non-Af BUN/Creatinine Ratio Glucose Lactic Acid Calcium Total Bilirubin AST ALT Alkaline Phosphatase Total Protein Albumin Globulin Albumin/Globulin Ratio Urine Color Yellow Urine Clarity Sl. Cloudy Urine pH 6.0 Ur Specific [place] 1.010 Urine Protein 30 H Urine Glucose (UA) Normal Urine Ketones Negative Urine Occult Blood 150 H Urine Nitrite Positive H Urine Bilirubin Negative Urine Urobilinogen Normal Ur Leukocyte Esterase 500 H Urine RBC 0 SEEN Urine WBC 50-100 SEEN Ur Squamous Epith Cells 0 SEEN Urine Bacteria 2+ Urine Mucus 0 SEEN Acetone Level NEGATIVE Assessment/Plan All Active Problems (Last Reviewed 11/20/18 @ 23:33 by Tera Mercer MD) Urinary tract infection (Acute) Sepsis (Acute) Cervical cancer (Acute) Acute diarrhea (Acute) High anion gap metabolic acidosis (Acute) Chest pain (Acute) H/O Dunbar's palsy (Resolved) Hx of cervical cancer (Resolved) Chronic Problems (Last Reviewed 11/20/18 @ 23:33 by Tera Mercer MD) Bilateral hydronephrosis (Chronic) Hyponatremia (Chronic) Hypokalemia (Chronic) Hyperlipidemia (Chronic) HTN (hypertension) (Chronic) Mild intermittent asthma (Chronic) Plan 1. Sepsis- plan admit to ICU, consult Dr. Lopez, initiate severe sepsis protocol 2. UTI- IV Rocephin cbc, bmp,lactate to be repeated in am scds for DVT prophylaxis Code Visit Inpatient E&M: 64387 Init Hosp L3
--- NOTE | 2018-11-26 07:56 | CON.PCM_ITS ---
Problem List (1) Urinary tract infection Status: Acute Qualifiers: Urinary tract infection type: acute pyelonephritis Qualified Code(s): N10 - Acute pyelonephritis (2) Sepsis Status: Acute (3) Cervical cancer Status: Acute (4) Acute diarrhea Status: Acute (5) HTN (hypertension) Status: Chronic Qualifiers: (6) Mild intermittent asthma Status: Chronic Reason for Consult Date of Consultation: 11/26/18 Reason for Consultation: Severe sepsis History of Present Illness: The patient is a 68 year old F, with past medical history listed below, who presented to [facility] on 11/26/2018 secondary to generalized weakness, fever and cough. Patient was reportedly recently in the hospital secondary to diarrhea and discharged 2 days ago. Reportedly, patient was doing well at that time, but over the 24 hours prior to presentation had decompensated with increasing weakness, generalized malaise, fever and a mild cough. No chest pain was reported. Patient reports that family members had told her your breathing does not look too good. Patient's recent hospitalization was attributed to viral diarrhea and acute kidney injury. Patient was reportedly seen by nephrology at that time. In the emergency room, patient was noted to have a temperature of 103.4 ?F. Patient was given Tylenol and a 30 cc/kg bolus of fluids. Patient also had a significant leukocytosis and a UA suggestive of infection. Patient reportedly responded very well to ER intervention. Patient was admitted to the intensive care unit for further monitoring. Patient was noted to be significantly tachycardic with heart rates in the 140s-150s on arrival. This was reportedly sinus tachycardia, but no telemetry is available for review. In the intensive care unit, patient has continued to improve. Patient did not need to be placed on pressor therapy. Fevers have improved and patient was able to be weaned to room air. Patient reports a feeling of generalized malaise, but feels overall that her breathing is much improved. Patient did have her stool sent for C. difficile that was negative. Contact precautions have been discontinued. Patient is alert and oriented at this time, but is unable to provide significant information about the time following discharge and re-presentation to the ER. 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 Cervical cancer C53.9 History of hysterectomy Z90.710 Allergies pravastatin Allergy (Verified 11/26/18 00:41) Chest tightness sulfamethoxazole [From Bactrim] Allergy (Verified 11/26/18 00:41) Shortness of breath trimethoprim [From Bactrim] Allergy (Verified 11/26/18 00:41) Shortness of breath methylprednisolone Adverse Reaction (Verified 11/26/18 00:41) Pain in joints novacaine Allergy (Uncoded 11/26/18 00:41) Unknown Home Medications: Ambulatory Orders Medication Instructions Recorded albuterol sulfate HFA 90 1 puff INHALATION Q6H PRN 07/25/18 mcg/actuation aerosol inhaler fluticasone 50 mcg/actuation nasal 1 spray INTRANASAL BID g 07/25/18 spray,suspension Amlodipine [Norvasc] 10 mg PO DAILY #30 tablet 11/24/18 Loperamide [Imodium] 2 mg PO Q2H PRN PRN capsule 11/24/18 Sodium Bicarbonate 650 mg PO BID #60 tablet 11/24/18 Surgical History: Surgical History (Last Reviewed 11/20/18 @ 23:33 by Tera Mercer MD) History of cardiac catheterization Onset Date: ~01/08/18 Z98.890 normal coronaries History of cholecystectomy Z90.49 Surgical History: hysterectomy, - - Cholecystectomy; and Mass removed from kidney, rt ureteral stent plaement in 2016 Smoking Status: Former smoker - *Family History Paternal Family History: Family History (Last Reviewed 11/21/18 @ 03:49 by Tera Mercer MD) Father CAD (coronary artery disease) History of coronary artery bypass surgery History Items: Heart Disease - at age 34yrs Review of Systems Comment: See HPI, otherwise negative x10 systems Patient Problems: Active and Suspected Problems (Last Reviewed 11/20/18 @ 23:33 by Tera Mercer MD) Urinary tract infection (Acute) Sepsis (Acute) Objective: Chest x-ray was personally reviewed and showed no acute infiltrate. - Physical Exam General: Alert, Oriented x3, Cooperative, No apparent distress, - - Obese. No conversational dyspnea appreciated. HEENT: Atraumatic, PERRLA, EOMI, Normocephalic, - - No scleral icterus or injection noted. Oral: No Gingival or Mucosal Lesions/ Ulcerations, Dry Mucosa Neck: Supple, No JVD, No Nodes, Trachea Midline Lungs: No rhonchi, No wheeze, No rales, Diminished, - - Symmetric expansion. No dullness to percussion. Cardiovascular: Regular rate, Regular Rhythm, Normal S1, Normal S2, No murmurs, No rub noted, No Gallop Abdomen: Bowel Sounds Present, Soft, Non Tender, Distended - Slightly, Obese Extremities: No clubbing, No cyanosis, Capillary Refill Less than 3 Seconds, Edema Skin: No rashes, No breakdown Musculoskeletal: No Tenderness to Palpation of Joints or Extremities Lymphatic: No Cervical, Supraclavicular, or Inguinal Adenopathy Neurological: Cranial nerves II-XII grossly intact, Neuro grossly intact, Motor Exam 5/5 strength throughout, Sensory exam intact to light touch and pain Psych/Mental Status: Alert and oriented to time, place, person, mood and affect Vital Signs Temp Pulse Resp BP Pulse Ox 37.2 C 93 22 H 93/60 95 11/26/18 06:00 11/26/18 06:00 11/26/18 06:00 11/26/18 06:00 11/26/18 06:00 Oxygen Delivery Method Room Air Weight: 98.2 kg Body Mass Index (BMI) 32.9 Finger Stick Blood Glucose 92 Intake and Output for Last 24 Hours 11/24/18 11/25/18 11/26/18 23:59 23:59 23:59 Intake Total 1173 / 1173 Output Total 1700 / 1700 Balance -527 / -527 Microbiology Past 72 Hours 11/26/18 03:10 C. difficile DNA Amplification - Final Stool 11/26/18 00:55 Influenza Types A,B Direct FA (LEVI) - Final Mucosa - Nasopharyngeal Laboratory Tests Past 24 Hrs 11/26/18 11/26/18 11/26/18 01:00 01:00 01:00 WBC 26.7 H RBC 3.80 L Hgb 12.1 Hct 35.9 L MCV 94.5 MCH 31.8 MCHC 33.7 RDW 16.5 H RDW Differential 57.0 H Plt Count 387 MPV 10.4 Immature Gran % (Auto) 1.500 H Neut % (Auto) 92.4 H Lymph % (Auto) 3.9 L [place] % (Auto) 2.0 Eos % (Auto) 0.0 Baso % (Auto) 0.2 Absolute Neuts (auto) 24.7 H Absolute Lymphs (auto) 1.05 Total Counted Not Reportable Differential Comment SEE COMMENT Diff Path Review May foll Platelet Estimate ADEQUATE Anisocytosis RARE Macrocytosis RARE Specimen Type Sample Site pH Bicarbonate Actual POC Total CO2 Base Excess O2 Saturation ABG pCO2 ABG pO2 [place] Test O2 Delivery Device Blood Gas Notified Whom Blood Gas Notified Time Sodium 137 Potassium 3.7 Chloride 107 Carbon Dioxide 13.0 L Anion Gap 17 H BUN 46 H Creatinine 3.98 H Estim Creat Clear Calc 13.02 Est GFR (MDRD) Af Amer 15 L Est GFR (MDRD) Non-Af 12 L BUN/Creatinine Ratio 11.6 Glucose 83 Lactic Acid 1.7 Calcium 7.4 L Total Bilirubin 1.20 H AST 24 ALT 13 Alkaline Phosphatase 122 H Total Protein 6.3 L Albumin 1.7 L Globulin 4.6 H Albumin/Globulin Ratio 0.4 L Urine Color Urine Clarity Urine pH Ur Specific [place] Urine Protein Urine Glucose (UA) Urine Ketones Urine Occult Blood Urine Nitrite Urine Bilirubin Urine Urobilinogen Ur Leukocyte Esterase Urine RBC Urine WBC Ur Squamous Epith Cells Urine Bacteria Urine Mucus Acetone Level 11/26/18 11/26/18 11/26/18 01:20 02:00 02:03 WBC RBC Hgb Hct MCV MCH MCHC RDW RDW Differential Plt Count MPV Immature Gran % (Auto) Neut % (Auto) Lymph % (Auto) [place] % (Auto) Eos % (Auto) Baso % (Auto) Absolute Neuts (auto) Absolute Lymphs (auto) Total Counted Differential Comment Diff Path Review Platelet Estimate Anisocytosis Macrocytosis Specimen Type ART Sample Site L Radial pH 7.38 Bicarbonate Actual 10.5 L POC Total CO2 11 Base Excess -15 L O2 Saturation 96 ABG pCO2 17.9 L* ABG pO2 81 [place] Test POS O2 Delivery Device Room Air Blood Gas Notified Whom ED Blood Gas Notified Time 200 Sodium Potassium Chloride Carbon Dioxide Anion Gap BUN Creatinine Estim Creat Clear Calc Est GFR (MDRD) Af Amer Est GFR (MDRD) Non-Af BUN/Creatinine Ratio Glucose Lactic Acid Calcium Total Bilirubin AST ALT Alkaline Phosphatase Total Protein Albumin Globulin Albumin/Globulin Ratio Urine Color Yellow Urine Clarity Sl. Cloudy Urine pH 6.0 Ur Specific [place] 1.010 Urine Protein 30 H Urine Glucose (UA) Normal Urine Ketones Negative Urine Occult Blood 150 H Urine Nitrite Positive H Urine Bilirubin Negative Urine Urobilinogen Normal Ur Leukocyte Esterase 500 H Urine RBC 0 SEEN Urine WBC 50-100 SEEN Ur Squamous Epith Cells 0 SEEN Urine Bacteria 2+ Urine Mucus 0 SEEN Acetone Level NEGATIVE Clinical Impression(s) from Imaging Studies Chest X-Ray 11/26/18 00:39 IMPRESSION: No acute pulmonary findings. Electronically Signed: Agustin Winslow MD at 1:55 EST Tel , Service support , Assessment/Plan Active and Suspected Problems (Last Reviewed 11/20/18 @ 23:33 by Tera Mercer MD) Urinary tract infection (Acute) Sepsis (Acute) RECOMMENDATIONS: 1. Continue empiric antibiotics 2. Symptomatic treatment of fever 3. Okay to go initiate p.o. diet 4. Repeat laboratory workup this morning 5. Possibly leave the intensive care unit later today IMPRESSIONS: 1. Severe sepsis secondary to UTI Patient with recent hospitalization secondary to reported viral gastroenteritis. Clinical suspicion for contamination from diarrhea leading to UTI and severe sepsis. Patient appears to be responding to therapy. No pressors have been required. Heart rate is much better controlled. Patient is on appropriate broad-spectrum antibiotics for now. Await the results of the urine culture. If patient continues to do well, possibly transfer out of the intensive care unit later today. 2. Acute kidney injury Patient with recent renal insult secondary to diarrhea. Clinical suspicion for exacerbation secondary to prerenal etiology secondary to #1. Patient has received significant fluids. Repeat labs this morning to see if patient is responding to fluid resuscitation. Do anticipate significant subcutaneous edema given patient's low albumin of 1.7. 3. Mild asthma/history of cervical cancer/recent diarrhea/obesity Complicates care, management and prognosis. Patient was significant dyspnea on presentation, but this was likely secondary to compensation for metabolic acidosis. Patient does not appear to be an exacerbation of asthma at this time. Would not recommend steroid therapy Code Visit Inpatient E&M: 23612 Init Hosp L3
[2018-11-26 08:05] LABS: Absolute Lymphocyte Count 1.17 X10^3/ul (0.83-4.51); Absolute Neutrophil Count 26.3 X10^3/uL (2.0-7.7); Basophil# 0.05 X10^3/uL; Basophil% 0.2 % (0-1); Eosinophil# 0.01 X10^3/uL; Lymphocyte # 1.17 X10^3/ul (4.0); Lymphocyte % 4.1 % (19-41); Mean Corp Hgb Conc 33.3 g/gl (32-36); Mean Corpuscular Hgb 31.6 pg (27.0-32.0); Mean Corpuscular Volume 94.9 fL (81-99); Mean Platelet Vol. 10.3 fl (6.2-12.0); Monocyte# 0.92 X10^3/uL; Monocyte% 3.2 % (0-10); Neutrophil # 26.31 X10^3/uL (2.7-7.7); Neutrophil % 91.6 % (47-70); Platelet Count 334 K/mm3 (150-450); RBC Distribution Width CV 16.5 % (11.6-14.6); RBC Distribution Width SD 57.6 fl (35.1-43.9); Red Blood Count 3.16 M/mm3 (4.2-5.4); White Blood Count 28.7 K/mm3 (4.4-11.0)
[2018-11-26 08:07] LABS: Differential Indicated SCAN CRITERIA MET; POSITIVE COUNT NO; POSITIVE DIFFERENTIAL YES; POSITIVE MORPHOLOGY YES
[2018-11-26 08:13] LABS: Lactic Acid 0.8 mmol/L (0.4-2.0)
[2018-11-26 08:18] LABS: Anion Gap 12 (5-15); BUN 45 mg/dL (7-18); Calcium,Total 6.6 mg/dL (8.5-10.1); Chloride 113 mmol/L (98-107); Creatinine, Serum 3.75 mg/dL (0.55-1.02); EST Glomerular Filtration Rate 13 mL/min (>60); Est Glom Filt Rate - Afr Amer 16 mL/min (>60); Estimated Creatinine Clearance 14.89 ml/min; Glucose 99 mg/dL (74-106); Magnesium 0.9 mg/dL (1.6-2.6); Phosphorus 4.2 mg/dL (2.5-4.9); Potassium 3.9 mmol/L (3.5-5.1); Sodium Level 138 mmol/L (136-145)
--- NOTE | 2018-11-26 08:54 | CASEMGMT ---
Addendum entered by Micah Celis 11/26/18 11:54: Follow up appointments made and entered in DC appointments. Dr. Ricky Sims, December 03, 2018 @ 1000 Dr. Byron Sims, December 03, 2018 @ 1100 Original Note: RN CM Readmission Note 11/26/18. Pt presented to ER with generalized weakness, febrile illness. UTI, sepsis. -DC'd two days prior from [facility] to home. Pt was able to care for self at home. Denied any dc needs. -Followup appt had not been made. RN called and left message with Dr. García's office and Dr. Matthews's office to make appts. Awaiting return call. DC PLAN: Anticipate Home on discharge. No needs identified @ this time. Sarah LIMA RN ACM
[2018-11-26] MEDS: Piperacil/Tazobactam 3.375 GM/50 ML ML IV ×2 (10:06→22:02)
[2018-11-26] MEDS: Magnesium Sulfate 4gm/100mL 4 GM/100 ML IV.SOLN. IV (10:06)
[2018-11-26] MEDS: 0.9% NaCl Peripheral Flush Adult/Peds IV ×2 (10:06→17:30)
[2018-11-26] MEDS: 0.9% NaCl IVPB Med Flush (250 mL) 15 ML IV (10:08)
[2018-11-26] MEDS: Sodium Bicarbonate 650 MG Tablet PO ×2 (10:17→22:03)
[2018-11-26 13:48] LABS: Pathologist Review Reviewed
[2018-11-26] MEDS: Loperamide 2 MG Capsule PO (19:55)
[2018-11-27] VITALS (10 sets, daily range): BP systolic 101–137; BP diastolic 58–70; PULSE 77–92; RESP 16–20; TEMP 36.4–37.1; O2SAT 94–100
[2018-11-27 07:00] LABS: Absolute Lymphocyte Count 1.34 X10^3/ul (0.83-4.51); Absolute Neutrophil Count 16.5 X10^3/uL (2.0-7.7); Basophil# 0.03 X10^3/uL; Basophil% 0.2 % (0-1); Eosinophil# 0.14 X10^3/uL; Eosinophils% 0.7 % (0-5); Hematocrit 29.2 % (37-47); Hemoglobin 9.7 g/dl (12.0-15.0); Lymphocyte # 1.34 X10^3/ul (4.0); Lymphocyte % 7.2 % (19-41); Mean Corp Hgb Conc 33.2 g/gl (32-36); Mean Corpuscular Hgb 31.6 pg (27.0-32.0); Mean Corpuscular Volume 95.1 fL (81-99); Mean Platelet Vol. 10.4 fl (6.2-12.0); Monocyte# 0.63 X10^3/uL; Monocyte% 3.4 % (0-10); Neutrophil # 16.46 X10^3/uL (2.7-7.7); Neutrophil % 87.8 % (47-70); Platelet Count 314 K/mm3 (150-450); RBC Distribution Width SD 58.6 fl (35.1-43.9); Red Blood Count 3.07 M/mm3 (4.2-5.4); White Blood Count 18.7 K/mm3 (4.4-11.0)
[2018-11-27 07:02] LABS: ALB/GLOB Ratio 0.4 RATIO (0.9-2.4); AST(SGOT) 28 U/L (15-37); Alanine Aminotransfer ALT/SGPT 14 U/L (13-56); Albumin, Serum 1.5 g/dL (3.2-5.0); Alkaline Phosphatase 95 U/L (45-117); Anion Gap 13 (5-15); BUN 48 mg/dL (7-18); BUN/Creat Ratio 13.6 RATIO (10-20); Chloride 112 mmol/L (98-107); Creatinine, Serum 3.54 mg/dL (0.55-1.02); EST Glomerular Filtration Rate 14 mL/min (>60); Est Glom Filt Rate - Afr Amer 17 mL/min (>60); Estimated Creatinine Clearance 15.77 ml/min; Glucose 92 mg/dL (74-106); Magnesium 2.4 mg/dL (1.6-2.6); Potassium 3.5 mmol/L (3.5-5.1); Protein, Total 5.5 g/dL (6.4-8.2); Sodium Level 143 mmol/L (136-145)
[2018-11-27 07:13] LABS: Differential Indicated SCAN CRITERIA MET; POSITIVE COUNT NO; POSITIVE DIFFERENTIAL NO; POSITIVE MORPHOLOGY YES
--- NOTE | 2018-11-27 08:22 | PCM.PROGNOTE ---
Patient Problems: Active and Suspected Problems (Last Reviewed 11/20/18 @ 23:33 by Tera Mercer MD) Urinary tract infection (Acute) Sepsis (Acute) Subjective: Patient did okay overnight. Patient reports subjective improvement in overall condition. No hemodynamic instability was reported overnight. Patient reports good urine output. No fever or chills have been reported. - Physical Exam General: Alert, Oriented x3, Cooperative, No apparent distress, Well developed, Well nourished, - - Obese. Speaking in full sentences. HEENT: Atraumatic, PERRLA, EOMI, Normocephalic, - - No scleral icterus or injection noted. Oral: Moist Mucosa, No Gingival or Mucosal Lesions/ Ulcerations Neck: Supple, No JVD, No Nodes, Trachea Midline Lungs: No rhonchi, No wheeze, No rales, Diminished, - - Symmetric expansion. No dullness to percussion. Cardiovascular: Regular rate, Regular Rhythm, Normal S1, Normal S2, No murmurs, No rub noted, No Gallop Abdomen: Bowel Sounds Present, Soft, Non Tender, Non-Distended, Obese Extremities: No clubbing, No cyanosis, Capillary Refill Less than 3 Seconds, Edema Skin: - Musculoskeletal: No Tenderness to Palpation of Joints or Extremities Lymphatic: No Cervical, Supraclavicular, or Inguinal Adenopathy Neurological: Cranial nerves II-XII grossly intact, Neuro grossly intact, Motor Exam 5/5 strength throughout Psych/Mental Status: Alert and oriented to time, place, person, mood and affect Vital Signs Temp Pulse Resp BP Pulse Ox 36.8 C 81 20 H 101/58 L 94 11/27/18 04:00 11/27/18 07:29 11/27/18 04:00 11/27/18 04:00 11/27/18 08:15 Oxygen Delivery Method Room Air Weight: 95.8 kg Body Mass Index (BMI) 32.9 Finger Stick Blood Glucose 92 Intake and Output for Last 24 Hours 11/25/18 11/26/18 11/27/18 23:59 23:59 23:59 Intake Total 1173 / 1173 511.3 / 511.3 Output Total 3350 / 3350 Balance -2177 / -2177 511.3 / 511.3 Microbiology Past 72 Hours 11/26/18 01:15 Blood Culture - Preliminary Blood Culture (Wb) - Venous GNR lactose primary class teacher 11/26/18 01:00 Blood Culture - Preliminary Blood Culture (Wb) - Anticubital Left GNR lactose primary class teacher 11/26/18 03:10 C. difficile DNA Amplification - Final Stool 11/26/18 00:55 Influenza Types A,B Direct FA (LEVI) - Final Mucosa - Nasopharyngeal Laboratory Tests Past 24 Hrs 11/26/18 11/26/18 11/27/18 01:00 07:32 05:45 WBC 18.7 H RBC 3.07 L Hgb 9.7 L Hct 29.2 L MCV 95.1 MCH 31.6 MCHC 33.2 RDW 17.0 H RDW Differential 58.6 H Plt Count 314 MPV 10.4 Immature Gran % (Auto) 0.700 Neut % (Auto) 87.8 H Lymph % (Auto) 7.2 L [place] % (Auto) 3.4 Eos % (Auto) 0.7 Baso % (Auto) 0.2 Absolute Neuts (auto) 16.5 H Absolute Lymphs (auto) 1.34 Total Counted Not Reportable Pending Differential Comment COMMENT Diff Path Review Reviewed Sodium Potassium Chloride Carbon Dioxide Anion Gap BUN Creatinine Estim Creat Clear Calc Est GFR (MDRD) Af Amer Est GFR (MDRD) Non-Af BUN/Creatinine Ratio Glucose Calcium Magnesium Total Bilirubin AST ALT Alkaline Phosphatase Total Protein Albumin Globulin Albumin/Globulin Ratio 11/27/18 05:45 WBC RBC Hgb Hct MCV MCH MCHC RDW RDW Differential Plt Count MPV Immature Gran % (Auto) Neut % (Auto) Lymph % (Auto) [place] % (Auto) Eos % (Auto) Baso % (Auto) Absolute Neuts (auto) Absolute Lymphs (auto) Total Counted Differential Comment Diff Path Review Sodium 143 Potassium 3.5 Chloride 112 H Carbon Dioxide 18.0 L Anion Gap 13 BUN 48 H Creatinine 3.54 H Estim Creat Clear Calc 15.77 Est GFR (MDRD) Af Amer 17 L Est GFR (MDRD) Non-Af 14 L BUN/Creatinine Ratio 13.6 Glucose 92 Calcium 7.0 L Magnesium 2.4 Total Bilirubin 0.40 AST 28 ALT 14 Alkaline Phosphatase 95 Total Protein 5.5 L Albumin 1.5 L Globulin 4.0 Albumin/Globulin Ratio 0.4 L Medical Necessity - Tobacco Use Smoking Status: Former smoker Assessment/Plan All Active Problems (Last Reviewed 11/20/18 @ 23:33 by Tera Mercer MD) Urinary tract infection (Acute) Sepsis (Acute) Cervical cancer (Acute) Acute diarrhea (Acute) High anion gap metabolic acidosis (Acute) Chest pain (Acute) H/O Dunbar's palsy (Resolved) Hx of cervical cancer (Resolved) RECOMMENDATIONS: 1. Continue empiric antibiotics until sensitivities available 2. Symptomatic treatment of fever 3. Hemodynamically stable on room air. Will sign off from a critical care perspective IMPRESSIONS: 1. Severe sepsis secondary to UTI Patient with recent hospitalization secondary to reported viral gastroenteritis. Clinical suspicion for contamination from diarrhea leading to UTI and severe sepsis. Patient appears to be responding to therapy. Patient is growing gram-negative rods in both blood cultures. Would continue broad-spectrum antibiotics until sensitivities are available as patient would have high likelihood for decompensation if resistant. That being said, patient is hemodynamically stable on room air. Will sign off from a critical care perspective. 2. Acute kidney injury Patient with recent renal insult secondary to diarrhea. Clinical suspicion for exacerbation secondary to prerenal etiology secondary to #1. Slight improvement in creatinine compared to previous. Do anticipate significant subcutaneous edema given patient's low albumin of 1.7. 3. Mild asthma/history of cervical cancer/recent diarrhea/obesity Complicates care, management and prognosis. Patient was significant dyspnea on presentation, but this was likely secondary to compensation for metabolic acidosis. Patient does not appear to be an exacerbation of asthma at this time. Would not recommend steroid therapy Code Visit Inpatient E&M: 13275 Subs Hosp L2
--- NOTE | 2018-11-27 08:26 | PN_ITS ---
Patient Problems: Active and Suspected Problems (Last Reviewed 11/20/18 @ 23:33 by Tera Mercer MD) Urinary tract infection (Acute) Sepsis (Acute) Subjective: Patient did okay overnight. Patient reports subjective improvement in overall condition. No hemodynamic instability was reported overnight. Patient reports good urine output. No fever or chills have been reported. - Physical Exam General: Alert, Oriented x3, Cooperative, No apparent distress, Well developed, Well nourished, - - Obese. Speaking in full sentences. HEENT: Atraumatic, PERRLA, EOMI, Normocephalic, - - No scleral icterus or injection noted. Oral: Moist Mucosa, No Gingival or Mucosal Lesions/ Ulcerations Neck: Supple, No JVD, No Nodes, Trachea Midline Lungs: No rhonchi, No wheeze, No rales, Diminished, - - Symmetric expansion. No dullness to percussion. Cardiovascular: Regular rate, Regular Rhythm, Normal S1, Normal S2, No murmurs, No rub noted, No Gallop Abdomen: Bowel Sounds Present, Soft, Non Tender, Non-Distended, Obese Extremities: No clubbing, No cyanosis, Capillary Refill Less than 3 Seconds, Edema Skin: - Musculoskeletal: No Tenderness to Palpation of Joints or Extremities Lymphatic: No Cervical, Supraclavicular, or Inguinal Adenopathy Neurological: Cranial nerves II-XII grossly intact, Neuro grossly intact, Motor Exam 5/5 strength throughout Psych/Mental Status: Alert and oriented to time, place, person, mood and affect Vital Signs Temp Pulse Resp BP Pulse Ox 36.8 C 81 20 H 101/58 L 94 11/27/18 04:00 11/27/18 07:29 11/27/18 04:00 11/27/18 04:00 11/27/18 08:15 Oxygen Delivery Method Room Air Weight: 95.8 kg Body Mass Index (BMI) 32.9 Finger Stick Blood Glucose 92 Intake and Output for Last 24 Hours 11/25/18 11/26/18 11/27/18 23:59 23:59 23:59 Intake Total 1173 / 1173 511.3 / 511.3 Output Total 3350 / 3350 Balance -2177 / -2177 511.3 / 511.3 Microbiology Past 72 Hours 11/26/18 01:15 Blood Culture - Preliminary Blood Culture (Wb) - Venous GNR lactose optical laboratory mechanic 11/26/18 01:00 Blood Culture - Preliminary Blood Culture (Wb) - Anticubital Left GNR lactose optical laboratory mechanic 11/26/18 03:10 C. difficile DNA Amplification - Final Stool 11/26/18 00:55 Influenza Types A,B Direct FA (LEVI) - Final Mucosa - Nasopharyngeal Laboratory Tests Past 24 Hrs 11/26/18 11/26/18 11/27/18 01:00 07:32 05:45 WBC 18.7 H RBC 3.07 L Hgb 9.7 L Hct 29.2 L MCV 95.1 MCH 31.6 MCHC 33.2 RDW 17.0 H RDW Differential 58.6 H Plt Count 314 MPV 10.4 Immature Gran % (Auto) 0.700 Neut % (Auto) 87.8 H Lymph % (Auto) 7.2 L [place] % (Auto) 3.4 Eos % (Auto) 0.7 Baso % (Auto) 0.2 Absolute Neuts (auto) 16.5 H Absolute Lymphs (auto) 1.34 Total Counted Not Reportable Pending Differential Comment COMMENT Diff Path Review Reviewed Sodium Potassium Chloride Carbon Dioxide Anion Gap BUN Creatinine Estim Creat Clear Calc Est GFR (MDRD) Af Amer Est GFR (MDRD) Non-Af BUN/Creatinine Ratio Glucose Calcium Magnesium Total Bilirubin AST ALT Alkaline Phosphatase Total Protein Albumin Globulin Albumin/Globulin Ratio 11/27/18 05:45 WBC RBC Hgb Hct MCV MCH MCHC RDW RDW Differential Plt Count MPV Immature Gran % (Auto) Neut % (Auto) Lymph % (Auto) [place] % (Auto) Eos % (Auto) Baso % (Auto) Absolute Neuts (auto) Absolute Lymphs (auto) Total Counted Differential Comment Diff Path Review Sodium 143 Potassium 3.5 Chloride 112 H Carbon Dioxide 18.0 L Anion Gap 13 BUN 48 H Creatinine 3.54 H Estim Creat Clear Calc 15.77 Est GFR (MDRD) Af Amer 17 L Est GFR (MDRD) Non-Af 14 L BUN/Creatinine Ratio 13.6 Glucose 92 Calcium 7.0 L Magnesium 2.4 Total Bilirubin 0.40 AST 28 ALT 14 Alkaline Phosphatase 95 Total Protein 5.5 L Albumin 1.5 L Globulin 4.0 Albumin/Globulin Ratio 0.4 L Medical Necessity - Tobacco Use Smoking Status: Former smoker Assessment/Plan All Active Problems (Last Reviewed 11/20/18 @ 23:33 by Tera Mercer MD) Urinary tract infection (Acute) Sepsis (Acute) Cervical cancer (Acute) Acute diarrhea (Acute) High anion gap metabolic acidosis (Acute) Chest pain (Acute) H/O Dunbar's palsy (Resolved) Hx of cervical cancer (Resolved) RECOMMENDATIONS: 1. Continue empiric antibiotics until sensitivities available 2. Symptomatic treatment of fever 3. Hemodynamically stable on room air. Will sign off from a critical care perspective IMPRESSIONS: 1. Severe sepsis secondary to UTI Patient with recent hospitalization secondary to reported viral gastroenteritis. Clinical suspicion for contamination from diarrhea leading to UTI and severe sepsis. Patient appears to be responding to therapy. Patient is growing gram-negative rods in both blood cultures. Would continue broad- spectrum antibiotics until sensitivities are available as patient would have high likelihood for decompensation if resistant. That being said, patient is hemodynamically stable on room air. Will sign off from a critical care perspective. 2. Acute kidney injury Patient with recent renal insult secondary to diarrhea. Clinical suspicion for exacerbation secondary to prerenal etiology secondary to #1. Slight improvement in creatinine compared to previous. Do anticipate si gnificant subcutaneous edema given patient's low albumin of 1.7. 3. Mild asthma/history of cervical cancer/recent diarrhea/obesity Complicates care, management and prognosis. Patient was significant dyspnea on presentation, but this was likely secondary to compensation for metabolic acidosis. Patient does not appear to be an exacerbation of asthma at this time. Would not recommend steroid therapy Code Visit Inpatient E&M: 44285 Subs Hosp L2
[2018-11-27] MEDS: Piperacil/Tazobactam 3.375 GM/50 ML ML IV ×2 (09:49→21:27)
[2018-11-27] MEDS: Sodium Bicarbonate 650 MG Tablet PO ×2 (09:49→21:27)
[2018-11-27] MEDS: 0.9% NaCl Peripheral Flush Adult/Peds IV ×2 (09:50→21:28)
--- NOTE | 2018-11-27 14:20 | PCM.PN.HOSP ---
Patient Problems: Active and Suspected Problems (Last Reviewed 11/20/18 @ 23:33 by Tera Mercer MD) Urinary tract infection (Acute) Sepsis (Acute) Subjective: Feels much better compared to yesterday, sitting up in the chair eating lunch. No fevers, chills, shortness of breath, or chest pain Vitals/I&O's: Vital Signs Temp Pulse Resp BP Pulse Ox 97.7 F L 85 16 121/70 H 100 11/27/18 09:47 11/27/18 11:16 11/27/18 09:47 11/27/18 09:47 11/27/18 09:47 Oxygen Delivery Method Room Air Weight: 211 lb 3.245 oz Body Mass Index (BMI) 32.9 Finger Stick Blood Glucose 92 Intake and Output for Last 24 Hours 11/25/18 11/26/18 11/27/18 23:59 23:59 23:59 Intake Total 1173 / 1173 911.3 / 911.3 Output Total 3350 / 3350 3 / 3 Balance -2177 / -2177 908.3 / 908.3 General: Alert, Oriented x3, Cooperative, No apparent distress HEENT: Atraumatic, PERRLA, EOMI, Normocephalic Neck: Supple, No JVD, Trachea Midline Lungs: Clear to auscultation, Normal air movement, No rhonchi, No wheeze, No rales Cardiovascular: Regular rate, Regular Rhythm, Normal S1, Normal S2, No murmurs, No rub noted, No Gallop Abdomen: Soft, Non Tender, Non-Distended, No Hepato-splenomegaly Extremities: No edema, Capillary Refill Less than 3 Seconds Skin: No rashes, No breakdown Neurological: Neuro grossly intact, Sensory exam intact to light touch and pain Psych/Mental Status: Normal Affect, Appropriate Microbiology Past 72 Hours 11/26/18 09:00 Urine, Clean Catch Urine Culture - Preliminary GNR lactose education rn 11/26/18 01:15 Blood Culture (Wb) - Venous Blood Culture - Preliminary GNR lactose education rn 11/26/18 01:00 Blood Culture (Wb) - Anticubital Left Blood Culture - Preliminary GNR lactose education rn 11/26/18 03:10 Stool C. difficile DNA Amplification - Final 11/26/18 00:55 Mucosa - Nasopharyngeal Influenza Types A,B Direct FA (LEVI) - Final Laboratory Results 11/27/18 05:45: WBC 18.7 H, RBC 3.07 L, Hgb 9.7 L, Hct 29.2 L, MCV 95.1, MCH 31.6, MCHC 33.2, RDW 17.0 H, RDW Differential 58.6 H, Plt Count 314, MPV 10.4, Immature Gran % (Auto) 0.700, Neut % (Auto) 87.8 H, Lymph % (Auto) 7.2 L, [place] % (Auto) 3.4, Eos % (Auto) 0.7, Baso % (Auto) 0.2, Absolute Neuts (auto) 16.5 H, Absolute Lymphs (auto) 1.34, Total Counted Not Reportable 11/27/18 05:45: Sodium 143, Potassium 3.5, Chloride 112 H, Carbon Dioxide 18.0 L, Anion Gap 13, BUN 48 H, Creatinine 3.54 H, Estim Creat Clear Calc 15.77, Est GFR (MDRD) Af Amer 17 L, Est GFR (MDRD) Non-Af 14 L, BUN/Creatinine Ratio 13.6, Glucose 92, Calcium 7.0 L, Magnesium 2.4, Total Bilirubin 0.40, AST 28, ALT 14, Alkaline Phosphatase 95, Total Protein 5.5 L, Albumin 1.5 L, Globulin 4.0, Albumin/Globulin Ratio 0.4 L Current Medications Albuterol Sulfate (Ventolin Aerosols) 2.5 mg INHALATION Q4H PRN PRN PRN Reason: SOB &/OR WHEEZING Sodium Chloride () 250 mls @ 15 mls/hr IV .[id number] PRN PRN Reason: SALINE FLUSH Last Admin: 11/26/18 10:08 Dose: 15 mls/hr Piperacillin Sod/Tazobactam Sod (Zosyn) 3.375 gm in 50 mls @ 12.5 mls/hr IV Q12 CINDY Last Admin: 11/27/18 09:49 Dose: 12.5 mls/hr Loperamide HCl (Imodium) 2 mg PO Q2H PRN PRN PRN Reason: Diarrhea Last Admin: 11/26/18 19:55 Dose: 2 mg Magnesium Hydroxide (Milk Of Magnesia) 30 ml PO DAILY PRN PRN PRN Reason: Constipation Sodium Bicarbonate (Sodium Bicarbonate) 650 mg PO BID CINDY Last Admin: 11/27/18 09:49 Dose: 650 mg Sodium Chloride () 5 - 15 ml IV UD PRN PRN Reason: SALINE FLUSH Last Admin: 11/27/18 09:50 Dose: 10 ml Sodium Chloride () 5 - 15 ml IV UD PRN PRN Reason: SALINE FLUSH Medical Necessity - Tobacco Use Smoking Status: Former smoker Assessment/Plan All Active Problems (Last Reviewed 11/20/18 @ 23:33 by Tera Mercer MD) Urinary tract infection (Acute) Sepsis (Acute) Cervical cancer (Acute) Acute diarrhea (Acute) High anion gap metabolic acidosis (Acute) Chest pain (Acute) H/O Dunbar's palsy (Resolved) Hx of cervical cancer (Resolved) 1. Sepsis secondary to UTI and gram-negative bacteremia/AK I -We will continue Zosyn at renal dose -Repeat blood cultures today to ensure clearance -Currently sepsis has resolved -We will await sensitivities prior to discharge -Her acute kidney injury is continued from her previous admission a few days ago, at this point it is likely transition into ATN and will slowly recover -She will need this followed up as an outpatient 2. Hypertension -Systolic stable in the 120s -Continue with Norvasc 3. History of asthma -Stable -Continue with home albuterol DVT: SCDs Code Visit Inpatient E&M: 31599 Subs Hosp L2
--- NOTE | 2018-11-27 14:26 | PN_ITS ---
Patient Problems: Active and Suspected Problems (Last Reviewed 11/20/18 @ 23:33 by Tera Mercer MD) Urinary tract infection (Acute) Sepsis (Acute) Subjective: Feels much better compared to yesterday, sitting up in the chair eating lunch. No fevers, chills, shortness of breath, or chest pain Vitals/I&O's: Vital Signs Temp Pulse Resp BP Pulse Ox 97.7 F L 85 16 121/70 H 100 11/27/18 09:47 11/27/18 11:16 11/27/18 09:47 11/27/18 09:47 11/27/18 09:47 Oxygen Delivery Method Room Air Weight: 211 lb 3.245 oz Body Mass Index (BMI) 32.9 Finger Stick Blood Glucose 92 Intake and Output for Last 24 Hours 11/25/18 11/26/18 11/27/18 23:59 23:59 23:59 Intake Total 1173 / 1173 911.3 / 911.3 Output Total 3350 / 3350 3 / 3 Balance -2177 / -2177 908.3 / 908.3 General: Alert, Oriented x3, Cooperative, No apparent distress HEENT: Atraumatic, PERRLA, EOMI, Normocephalic Neck: Supple, No JVD, Trachea Midline Lungs: Clear to auscultation, Normal air movement, No rhonchi, No wheeze, No rales Cardiovascular: Regular rate, Regular Rhythm, Normal S1, Normal S2, No murmurs, No rub noted, No Gallop Abdomen: Soft, Non Tender, Non-Distended, No Hepato-splenomegaly Extremities: No edema, Capillary Refill Less than 3 Seconds Skin: No rashes, No breakdown Neurological: Neuro grossly intact, Sensory exam intact to light touch and pain Psych/Mental Status: Normal Affect, Appropriate Microbiology Past 72 Hours 11/26/18 09:00 Urine, Clean Catch Urine Culture - Preliminary GNR lactose tubing tester 11/26/18 01:15 Blood Culture (Wb) - Venous Blood Culture - Preliminary GNR lactose tubing tester 11/26/18 01:00 Blood Culture (Wb) - Anticubital Left Blood Culture - Preliminary GNR lactose tubing tester 11/26/18 03:10 Stool C. difficile DNA Amplification - Final 11/26/18 00:55 Mucosa - Nasopharyngeal Influenza Types A,B Direct FA (LEVI) - Final Laboratory Results 11/27/18 05:45: WBC 18.7 H, RBC 3.07 L, Hgb 9.7 L, Hct 29.2 L, MCV 95.1, MCH 31.6, MCHC 33.2, RDW 17.0 H, RDW Differential 58.6 H, Plt Count 314, MPV 10.4, Immature Gran % (Auto) 0.700, Neut % (Auto) 87.8 H, Lymph % (Auto) 7.2 L, [place] % (Auto) 3.4, Eos % (Auto) 0.7, Baso % (Auto) 0.2, Absolute Neuts (auto) 16.5 H, Absolute Lymphs (auto) 1.34, Total Counted Not Reportable 11/27/18 05:45: Sodium 143, Potassium 3.5, Chloride 112 H, Carbon Dioxide 18.0 L , Anion Gap 13, BUN 48 H, Creatinine 3.54 H, Estim Creat Clear Calc 15.77, Est GFR (MDRD) Af Amer 17 L, Est GFR (MDRD) Non-Af 14 L, BUN/Creatinine Ratio 13.6, Glucose 92, Calcium 7.0 L, Magnesium 2.4, Total Bilirubin 0.40, AST 28, ALT 14, Alkaline Phosphatase 95, Total Protein 5.5 L, Albumin 1.5 L, Globulin 4.0, Albumin/Globulin Ratio 0.4 L Current Medications Albuterol Sulfate (Ventolin Aerosols) 2.5 mg INHALATION Q4H PRN PRN PRN Reason: SOB &/OR WHEEZING Sodium Chloride () 250 mls @ 15 mls/hr IV .[id number] PRN PRN Reason: SALINE FLUSH Last Admin: 11/26/18 10:08 Dose: 15 mls/hr Piperacillin Sod/Tazobactam Sod (Zosyn) 3.375 gm in 50 mls @ 12.5 mls/hr IV Q12 CINDY Last Admin: 11/27/18 09:49 Dose: 12.5 mls/hr Loperamide HCl (Imodium) 2 mg PO Q2H PRN PRN PRN Reason: Diarrhea Last Admin: 11/26/18 19:55 Dose: 2 mg Magnesium Hydroxide (Milk Of Magnesia) 30 ml PO DAILY PRN PRN PRN Reason: Constipation Sodium Bicarbonate (Sodium Bicarbonate) 650 mg PO BID CINDY Last Admin: 11/27/18 09:49 Dose: 650 mg Sodium Chloride () 5 - 15 ml IV UD PRN PRN Reason: SALINE FLUSH Last Admin: 11/27/18 09:50 Dose: 10 ml Sodium Chloride () 5 - 15 ml IV UD PRN PRN Reason: SALINE FLUSH Medical Necessity - Tobacco Use Smoking Status: Former smoker Assessment/Plan All Active Problems (Last Reviewed 11/20/18 @ 23:33 by Tera Mercer MD) Urinary tract infection (Acute) Sepsis (Acute) Cervical cancer (Acute) Acute diarrhea (Acute) High anion gap metabolic acidosis (Acute) Chest pain (Acute) H/O Dunbar's palsy (Resolved) Hx of cervical cancer (Resolved) 1. Sepsis secondary to UTI and gram-negative bacteremia/AK I -We will continue Zosyn at renal dose -Repeat blood cultures today to ensure clearance -Currently sepsis has resolved -We will await sensitivities prior to discharge -Her acute kidney injury is continued from her previous admission a few days ago, at this point it is likely transition into ATN and will slowly recover -She will need this followed up as an outpatient 2. Hypertension -Systolic stable in the 120s -Continue with Norvasc 3. History of asthma -Stable -Continue with home albuterol DVT: SCDs Code Visit Inpatient E&M: 20325 Subs Hosp L2
[2018-11-27] MEDS: Loperamide 2 MG Capsule PO (15:35)
[2018-11-28] VITALS (8 sets, daily range): BP systolic 128–138; BP diastolic 70–82; PULSE 70–96; RESP 16–18; TEMP 36.4–36.8; O2SAT 89–100
[2018-11-28 05:33] LABS: Absolute Lymphocyte Count 1.77 X10^3/ul (0.83-4.51); Absolute Neutrophil Count 11.8 X10^3/uL (2.0-7.7); Basophil# 0.03 X10^3/uL; Basophil% 0.2 % (0-1); Eosinophil# 0.18 X10^3/uL; Eosinophils% 1.2 % (0-5); Hematocrit 30.4 % (37-47); Hemoglobin 10.2 g/dl (12.0-15.0); Lymphocyte # 1.77 X10^3/ul (4.0); Lymphocyte % 12.2 % (19-41); Mean Corp Hgb Conc 33.6 g/gl (32-36); Mean Corpuscular Hgb 31.9 pg (27.0-32.0); Monocyte# 0.61 X10^3/uL; Monocyte% 4.2 % (0-10); Neutrophil # 11.84 X10^3/uL (2.7-7.7); Neutrophil % 81.5 % (47-70); Platelet Count 325 K/mm3 (150-450); RBC Distribution Width CV 17.1 % (11.6-14.6); RBC Distribution Width SD 59.3 fl (35.1-43.9); White Blood Count 14.5 K/mm3 (4.4-11.0)
[2018-11-28 05:54] LABS: POSITIVE COUNT NO; POSITIVE DIFFERENTIAL NO; POSITIVE MORPHOLOGY NO
[2018-11-28 05:56] LABS: BUN 42 mg/dL (7-18); BUN/Creat Ratio 13.5 RATIO (10-20); Calcium,Total 7.2 mg/dL (8.5-10.1); Chloride 114 mmol/L (98-107); Creatinine, Serum 3.11 mg/dL (0.55-1.02); EST Glomerular Filtration Rate 16 mL/min (>60); Est Glom Filt Rate - Afr Amer 19 mL/min (>60); Estimated Creatinine Clearance 17.95 ml/min; Glucose 97 mg/dL (74-106); Potassium 3.2 mmol/L (3.5-5.1); Sodium Level 146 mmol/L (136-145)
[2018-11-28 05:57] LABS: Anion Gap 12 (5-15)
[2018-11-28] MEDS: Sodium Bicarbonate 650 MG Tablet PO (09:43)
--- NOTE | 2018-11-28 11:11 | DCINST_ITS ---
- Discharge Diagnoses Current Active Problems: Current Active and Chronic Problems (Last Reviewed 11/20/18 @ 23:33 by Tera Mercer MD) Urinary tract infection (Acute) Sepsis (Acute) You will use the following diet at home:: Cardiac Your food should be the consistency of: Regular Your liquids should be the consistency of: Regular/Thin Discharge Activity: Return to Normal Activity Call your doctor if you observe: Fever of 101 or Higher, Shortness of breath, Dizziness, Chest pain, Increased palpitations (irregular heartbeat) Allergies/Adverse Reactions: Allergies pravastatin Allergy (Verified 11/26/18 00:41) Chest tightness sulfamethoxazole [From Bactrim] Allergy (Verified 11/26/18 00:41) Shortness of breath trimethoprim [From Bactrim] Allergy (Verified 11/26/18 00:41) Shortness of breath methylprednisolone Adverse Reaction (Verified 11/26/18 00:41) Pain in joints novacaine Allergy (Uncoded 11/26/18 00:41) Unknown Medications to take at Discharge albuterol sulfate HFA 90 mcg/actuation aerosol inhaler 1 puff INHALATION Q6H PRN 07/25/18 fluticasone 50 mcg/actuation nasal spray,suspension 1 spray INTRANASAL BID g 07/25/18 Amlodipine [Norvasc] 10 mg PO DAILY #30 tablet 11/24/18 Loperamide [Imodium] 2 mg PO Q2H PRN PRN capsule 11/24/18 Sodium Bicarbonate 650 mg PO BID #60 tablet 11/24/18 Cephalexin [Keflex] 500 mg PO Q6 #28 capsule 11/28/18 The following prescriptions were given: Cephalexin [Keflex] 500 mg PO Q6 #28 capsule Primary Care Physician: Gerardo García Chi, MD [Primary Care Provider] - Test Results: Test results from this visit will be discussed in further detail at your follow- up appointment, if applicable. Please Follow Up With: Gerardo García Chi, MD When: Sunday Please Follow Up With: Luz Maria Matthews DO When: Sunday
--- NOTE | 2018-11-28 11:18 | CASEMGMT ---
This RN CM to room to f/u on discharge planning and pt states no need for any therapy at discharge at this time. Pt states 'I will be just fine.' Pt voices no further questions/concerns/needs at this time. Pt is awaiting to come pick her up for discharge. [place] ANISH KIRKPATRICK
--- NOTE | 2018-11-28 11:34 | DS.PCM_ITS ---
Discharge Date and Diagnosis - Problem List Patient Problems: Active and Suspected Problems (Last Reviewed 11/20/18 @ 23:33 by Tera Mercer MD) Urinary tract infection (Acute) Sepsis (Acute) Date of Admission: 11/26/18 Date of Discharge: 11/28/18 - Primary Discharge Diagnosis Active and Suspected Problems (Last Reviewed 11/20/18 @ 23:33 by Tera Mercer MD) Urinary tract infection (Acute) Sepsis (Acute) - Secondary Discharge Diagnosis Chronic Problems (Last Reviewed 11/20/18 @ 23:33 by Tera Mercer MD) Bilateral hydronephrosis (Chronic) Hyponatremia (Chronic) Hypokalemia (Chronic) Hyperlipidemia (Chronic) HTN (hypertension) (Chronic) Mild intermittent asthma (Chronic) Hospital Course and Treatment Operations: None Procedures: None Summary of Care Provided: Per HPI: The patient is a 68 year old female patient discharged two days ago from our facility presents to the ER with acute febrile illness. She has weakness, fever and cough. She believes she was doing well at the time she was discharged but over the past 24 hrs decompensated quickly. She has malaise, myalgias and difficulty ambulating.She denies dysuria or abdominal pain. Her recent hospitalization was due to viral diarrhea and acute kidney injury. She was seen by nephrology. Kidney function improved before she was discharged. Her temp is 103, heart rate is 140-150 and respiratory rate was 28 at time of arrival. She meets severe sepsis criteria and will be admitted to ICU. UA is p ositive and most likely source. Hospital Course: 1. Sepsis secondary to UTI and gram-negative bacteremia/AK I ? 68-year-old female who was recently admitted for diarrheal disease, and was sent home. She continued to worsen at home and on return to the ER was found to be tachycardic and tachypneic with a UTI therefore she was transferred to the ICU for sepsis. She was started on Zosyn and was in the ICU for less than 24 hours. She had blood cultures come back with gram-negative rods that ultimately turned out to be Klebsiella from her urine. The bacteria was sensitive to Ancef and she was discharged home on Keflex 500 mg every 6 to complete a 10-day course. Of note she had an AK I on her initial admission, with a creatinine greater than 4 and a baseline of less than 1. On discharge her creatinine is 3.11, indicating that she has likely developed ATN and will have a slower return to baseline. She is to follow-up with her primary care doctor and nephrology on Sunday. 2. Her other medical diagnoses were evaluated and her home medications were continued where appropriate Patient Problems: Active and Suspected Problems (Last Reviewed 11/20/18 @ 23:33 by Tera Mercer MD) Urinary tract infection (Acute) Sepsis (Acute) Objective: General: Alert, Oriented x3, Cooperative, No apparent distress HEENT: Atraumatic, PERRLA, EOMI, Normocephalic Neck: Supple, No JVD, Trachea Midline Lungs: Clear to auscultation, Normal air movement, No rhonchi, No wheeze, No rales Cardiovascular: Regular rate, Regular Rhythm, Normal S1, Normal S2, No murmurs, No rub noted, No Gallop Abdomen: Soft, Non Tender, Non-Distended, No Hepato-splenomegaly Extremities: No edema, Capillary Refill Less than 3 Seconds Skin: No rashes, No breakdown Neurological: Neuro grossly intact, Sensory exam intact to light touch and pain Psych/Mental Status: Normal Affect, Appropriate - Physical Exam Vital Signs Temp Pulse Resp BP Pulse Ox 97.5 F L 95 18 128/70 H 100 11/28/18 09:30 11/28/18 10:49 11/28/18 09:30 11/28/18 09:30 11/28/18 09:30 Oxygen Delivery Method Room Air Weight: 206 lb 9.17 oz Body Mass Index (BMI) 32.9 Finger Stick Blood Glucose 92 Intake and Output for Last 24 Hours 11/26/18 11/27/18 11/28/18 23:59 23:59 23:59 Intake Total 1173 / 1173 1411.3 / 1411.3 1125 / 1125 Output Total 3350 / 3350 3 / 3 Balance -2177 / -2177 1408.3 / 1408.3 1125 / 1125 Microbiology Past 72 Hours 11/26/18 01:15 Blood Culture - Final Blood Culture (Wb) - Venous GNR 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 difficile DNA Amplification - Final Stool 11/26/18 00:55 Influenza Types A,B Direct FA (LEVI) - Final Mucosa - Nasopharyngeal Laboratory Tests Past 24 Hrs 11/28/18 11/28/18 04:52 04:52 WBC 14.5 H RBC 3.20 L Hgb 10.2 L Hct 30.4 L MCV 95.0 MCH 31.9 MCHC 33.6 RDW 17.1 H RDW Differential 59.3 H Plt Count 325 MPV 11.0 Immature Gran % (Auto) 0.700 Neut % (Auto) 81.5 H Lymph % (Auto) 12.2 L [place] % (Auto) 4.2 Eos % (Auto) 1.2 Baso % (Auto) 0.2 Absolute Neuts (auto) 11.8 H Absolute Lymphs (auto) 1.77 Total Counted Not Reportable Sodium 146 H Potassium 3.2 L Chloride 114 H Carbon Dioxide 20.0 L Anion Gap 12 BUN 42 H Creatinine 3.11 H Estim Creat Clear Calc 17.95 Est GFR (MDRD) Af Amer 19 L Est GFR (MDRD) Non-Af 16 L BUN/Creatinine Ratio 13.5 Glucose 97 Calcium 7.2 L Discharge Activity: Return to Normal Activity Call your doctor if you observe: Fever of 101 or Higher, Shortness of breath, Dizziness, Chest pain, Increased palpitations (irregular heartbeat) Home Medications: Medications to take at Discharge albuterol sulfate HFA 90 mcg/actuation aerosol inhaler 1 puff INHALATION Q6H PRN 07/25/18 fluticasone 50 mcg/actuation nasal spray,suspension 1 spray INTRANASAL BID g 07/25/18 Amlodipine [Norvasc] 10 mg PO DAILY #30 tablet 11/24/18 Loperamide [Imodium] 2 mg PO Q2H PRN PRN capsule 11/24/18 Sodium Bicarbonate 650 mg PO BID #60 tablet 11/24/18 Cephalexin [Keflex] 500 mg PO Q6 #28 capsule 11/28/18 Following Prescrptions Were Given to Patient: Cephalexin [Keflex] 500 mg PO Q6 #28 capsule Primary Care Physician: Gerardo García Chi, MD [Primary Care Provider] - Please Follow Up With: Gerardo García Chi, MD When: Sunday Please Follow Up With: Luz Maria Matthews DO When: Sunday Disposition: Home Minutes spent on discharge:: 35 Patient Condition:: Good Medical Necessity - Tobacco Use Smoking Status: Former smoker Meaningful Use Info Meaningful Use Diagnoses (Choose all that apply): None applicable Code Visit Inpatient E&M: 81364 Disch Hosp
--- NOTE | 2018-11-29 12:39 | CASEMGMT ---
RN KAYA DC PHONE CALL DC Date: 11/28/18 DC Disposition: Home LACE/STRATA 09/21 Intro role of CM to patient. Pt states she is feeling well, no questions re: prescriptions, f/u or dc instructions. Reviewed that pt is taking her antibiotic and has f/u with PCP on Sunday. Sarah ZHOUN RN ACM
== END 2018-11-28 14:48 | disposition home or self-care (01) | DRG 872 ==
LOC: ED 01:12 → ICU 02:20 → PCU 11-27 06:16 → ICU 11-27 08:15
PROVIDERS: Admitting Provider Family Medicine; Emergency Provider Emergency Medicine; Family Provider Family Medicine Geriatric Medicine; PCP Family Medicine Geriatric Medicine; Visit Provider Family Medicine
DX: A41.59 Other Gram-negative sepsis (principal); N10 Acute pyelonephritis; N17.9 Acute kidney failure, unspecified; E87.2 Acidosis; R65.20 Severe sepsis without septic shock; B96.1 Klebsiella pneumoniae [K. pneumoniae] as the cause of diseases classified elsewhere; Z85.43 Personal history of malignant neoplasm of ovary; J45.20 Mild intermittent asthma, uncomplicated; I10 Essential (primary) hypertension; E78.5 Hyperlipidemia, unspecified; Z79.51 Long term (current) use of inhaled steroids; Z79.899 Other long term (current) drug therapy; Z87.891 Personal history of nicotine dependence; E66.9 Obesity, unspecified; Z68.32 Body mass index [BMI] 32.0-32.9, adult; Z85.41 Personal history of malignant neoplasm of cervix uteri
CPT/HCPCS: 36415; 36600; 51702; 71045; 80048; 80053; 81001; 82009; 82803; 83605; 83735; 84100; 85025; 87040; 87077; 87086; 87088; 87186; 87493; 87804; 93005; 97162; 97802; 99285; J7030; J7040; J7050; A4216; J3490

== ENCOUNTER → 2018-12-03 11:54 | Outpatient (CLI) | payer MEDICARE, SELFPAY ==
[2018-11-26 02:51] VITALS: BMI 32.9
[2018-12-03 13:47] LABS: Albumin, Serum 2.1 g/dL (3.2-5.0); BUN 29 mg/dL (7-18); BUN/Creat Ratio 8.1 RATIO (10-20); Calcium,Total 7.7 mg/dL (8.5-10.1); Chloride 104 mmol/L (98-107); Creatinine, Serum 3.56 mg/dL (0.55-1.02); EST Glomerular Filtration Rate 14 mL/min (>60); Est Glom Filt Rate - Afr Amer 17 mL/min (>60); Glucose 86 mg/dL (74-106); Phosphorus 5.3 mg/dL (2.5-4.9); Potassium 3.8 mmol/L (3.5-5.1); Sodium Level 142 mmol/L (136-145)
== END ==
PROVIDERS: Family Provider Family Medicine Geriatric Medicine; PCP Family Medicine Geriatric Medicine; Visit Provider Internal Medicine Nephrology
DX: N17.9 Acute kidney failure, unspecified (principal)
CPT/HCPCS: 36415; 80069

== ENCOUNTER 2018-12-13 21:21 | Inpatient (IN) | payer MEDICARE, SELFPAY ==
[2018-11-26 02:51] VITALS: BMI 32.9
[2018-12-13] VITALS (9 sets, daily range): BP systolic 132–173; BP diastolic 72–91; PULSE 102–134; RESP 14–18; TEMP 36.8–39.1; O2SAT 93–96; BMI 30.3; BMI 29.2
--- NOTE | 2018-12-13 21:37 | EKG12_ITS ---
Test Reason : Blood Pressure : / mmHG Vent. Rate : 128 BPM Atrial Rate : 128 BPM P-R Int : 140 ms QRS Dur : 078 ms QT Int : 310 ms P-R-T Axes : 052 000 066 degrees QTc Int : 452 ms Sinus tachycardia with Premature atrial complexes Nonspecific T wave abnormality Abnormal ECG Confirmed by DEON CHRISTIAN, RICHARD ([id number]), editor publications COOPER MARTINEZ ([id number]) on 12/17/2018 3:28:40 PM Referred By: Vernon Webb Confirmed By:RICHRAD CHAVARRIA MD
--- NOTE | 2018-12-13 21:45 | RAD_ITS ---
STUDY: X-RAY CHEST REASON FOR EXAM: Female, 68 years old. Urosepsis, weakness TECHNIQUE: Single frontal view COMPARISON: November 26, 2018 FINDINGS: The lungs are clear and expanded. There is no demonstrated pleural abnormality. Normal size heart. Normal mediastinum and wayne. Normal visualized pulmonary arteries. Normal visualized aortic arch and descending thoracic aorta. Normal visualized thoracic spine. Normal visualized ribs, clavicles, and shoulders. There is no demonstrated abnormality of the visualized soft tissue structures of the upper abdomen. RAD/Chest 1 View (Portable) IMPRESSION: Normal x-ray examination of the chest. Electronically Signed: Tanmay Baker DO at 23:06 EST Tel [phone], Service support ,
[2018-12-13] MEDS: Acetaminophen 500 MG Tablet 1000 MG PO (21:46)
[2018-12-13] MEDS: 0.9% Normal Saline 1,000 ML 999 ML IV (21:46)
[2018-12-13 21:54] LABS: Absolute Lymphocyte Count 1.61 X10^3/ul (0.83-4.51); Basophil# 0.04 X10^3/uL; Basophil% 0.2 % (0-1); Eosinophil# 0.03 X10^3/uL; Eosinophils% 0.2 % (0-5); Hematocrit 35.6 % (37-47); Hemoglobin 11.6 g/dl (12.0-15.0); Lymphocyte # 1.61 X10^3/ul (4.0); Mean Corp Hgb Conc 32.6 g/gl (32-36); Mean Corpuscular Volume 98.1 fL (81-99); Mean Platelet Vol. 10.1 fl (6.2-12.0); Monocyte# 1.15 X10^3/uL; Monocyte% 6.4 % (0-10); Neutrophil # 14.95 X10^3/uL (2.7-7.7); Neutrophil % 83.7 % (47-70); POSITIVE COUNT NO; POSITIVE DIFFERENTIAL NO; POSITIVE MORPHOLOGY NO; Platelet Count 463 K/mm3 (150-450); RBC Distribution Width CV 14.8 % (11.6-14.6); RBC Distribution Width SD 51.2 fl (35.1-43.9); Red Blood Count 3.63 M/mm3 (4.2-5.4); White Blood Count 17.9 K/mm3 (4.4-11.0)
[2018-12-13 21:57] LABS: International Normalized Ratio 1.1; Prothrombin Time (Protime)PT. 13.7 SECONDS (11.7-14.9)
[2018-12-13 21:58] LABS: Partial Thromboplast Time 26.9 Seconds (24.1-36.2)
[2018-12-13 22:10] LABS: ALB/GLOB Ratio 0.4 RATIO (0.9-2.4); AST(SGOT) 19 U/L (15-37); Alanine Aminotransfer ALT/SGPT 12 U/L (13-56); Albumin, Serum 2.4 g/dL (3.2-5.0); Alkaline Phosphatase 92 U/L (45-117); Anion Gap 10 (5-15); BUN 16 mg/dL (7-18); BUN/Creat Ratio 4.9 RATIO (10-20); Calcium,Total 7.5 mg/dL (8.5-10.1); Chloride 100 mmol/L (98-107); Creatinine, Serum 3.26 mg/dL (0.55-1.02); EST Glomerular Filtration Rate 15 mL/min (>60); Est Glom Filt Rate - Afr Amer 18 mL/min (>60); Estimated Creatinine Clearance 17.12 ml/min; Globulin 5.8 g/dL (2.2-4.2); Glucose 137 mg/dL (74-106); Potassium 2.8 mmol/L (3.5-5.1); Protein, Total 8.2 g/dL (6.4-8.2); Sodium Level 137 mmol/L (136-145)
[2018-12-13 22:13] LABS: Mucous, Urine 0 SEEN /hpf (<or=2+)
[2018-12-13 22:14] LABS: Lactic Acid 1.6 mmol/L (0.4-2.0)
--- NOTE | 2018-12-13 22:21 | ED.VISSUMM ---
- ER Visit Summary Date of Service: 12/13/18 Chief Complaint: Urinary tract infection History of Present Illness: The patient is a 68 F presenting secondary to a possible urinary tract infection. Patient was actually just recently admitted for UTI and sepsis and discharged about a week ago. Patient reports that she was feeling somewhat better, but then yesterday she had worsening of her symptoms again. Patient states that today she had fevers, generalized weakness, and persistently worsening urinary frequency. Patient reports that she is having incontinence of urine and going through upwards of 16 of adult diapers per day. Patient states that she feels somewhat dehydrated. She denies any other new infectious signs or symptoms. Physical Examination: Vital signs notable for a fever of 102 and a heart rate of 120. Well-nourished female nontoxic appearing no acute distress. Head normocephalic. Moist mucous membranes. Neck supple, heart tachycardic and regular no murmurs. Lungs clear. Abdomen soft nontender. exam shows excoriated skin but no evidence of cellulitis or Yinka's gangrene. Neurologic exam not lateralizing. Remainder of physical otherwise unremarkable. Test Results: Chest x-ray shows no evidence of acute pathology. EKG demonstrates sinus tachycardia with PACs and some nonspecific T wave changes. CBC demonstrates leukocytosis of 17. Lactic acid is negative. Urinalysis shows evidence of infection Emergency Department Course and Treatment: Patient presented secondary to UTI with signs and symptoms of sepsis. Patient was given Tylenol and a fluid bolus. Workup as noted above shows UTI and sepsis. Patient was given Rocephin. Prior cultures grew out Klebsiella that was sensitive to Rocephin. Patient will be admitted under the hospitalist. Disposition: Admission Impression: 1. Sepsis 2. Urinary tract infection This note was generated with [employer] dictation software. It may contain incorrect words, spelling, and punctuation that were not noted in review of the chart prior to signing ED Disposition - Plan for ED Patient: Chief Complaint: Fever Referrals: Gerardo García Chi, MD [Primary Care Provider] -
[2018-12-13 22:23] LABS: Color, Urine Yellow (Yellow); Urine Clarity Cloudy (Clear)
[2018-12-13 22:25] LABS: Glucose, Dipstick Normal (Normal); Ketone-Dipstick Negative (Negative); Leukocyte Esterase-Dipstick 100 /ul (Negative); Nitrite-Dipstick Positive (Negative); Occult Blood-Urine 250 /ul (Negative); Protein-Dipstick 500 mg/dl (Negative); Urine Bilirubin Dipstick Negative (Negative); Urine Urobilinogen Normal (Normal)
[2018-12-13 22:27] LABS: Amorphous Sediment 3+ PHOS; Bacteria 2+ /hpf (None Seen); Red Blood Cells-Urine 25-50 SEEN /hpf (0-5); Squamous Epithelial Cells - UA 5-10 SEEN /hpf (5-10); White Blood Cells 25-50 SEEN /hpf (0-5)
[2018-12-13 22:28] LABS: Hyaline Cast 0-5 SEEN /lpf (0-5)
[2018-12-13] MEDS: Ceftriaxone 1 GM/50 ML BAG IV (22:33)
--- NOTE | 2018-12-13 22:40 | CT_ITS ---
STUDY: CT ABDOMEN AND PELVIS WITHOUT CONTRAST REASON FOR EXAM: Female, 68 years old. Fever. Weakness. Urinary frequency. Recent antibiotic treatment for urosepsis. History of cervical cancer hypertension and kidney stones. RADIATION DOSAGE (If Supplied By Facility): CTDIvol = ( 12.08 ) mGy, DLP = ( 664.04 ) mGycm TECHNIQUE: Transaxial images were obtained from the dome of the diaphragm to the symphysis pubis without oral contrast, and without intravenous contrast. Sagittal and coronal images were reconstructed. Individualized dose optimization techniques were used for this CT. COMPARISON: November 23, 2018. FINDINGS: The visualized lung bases are unremarkable. The visualized portions of the heart are within normal limits. Normal liver. There is non-visualization of the gallbladder, consistent with history of prior cholecystectomy. Normal spleen. Normal pancreas. Normal bilateral adrenal glands. Both kidneys appear enlarged in size. There is normal cortical thickness. There is diffuse stranding of the perinephric fat. There is marked bilateral hydronephrosis. Also noted is an exophytic cyst off the lower pole the right kidney. Both ureters are dilated to the urinary bladder without mass or obstruction. Normal visualized stomach. Normal small intestine. There is sigmoid diverticuli without acute inflammatory change. The appendix is visualized and appears normal. There is diffuse atherosclerotic calcification of the abdominal aorta, without a demonstrated aneurysm. Normal inferior vena cava. There is a 1.4 x 1 x 1.7 cm left periaortic cyst at the level of the left renal hilum. Other smaller retroperitoneal lymph nodes are also noted. Urinary bladder is distended and demonstrates normal wall thickness. There are no filling defects. There are calcifications within the vaginal cuff. No pelvic lymphadenopathy is present. No free air or free fluid is seen within the peritoneal cavity. There is a 1.5 x 1.2 x 1 cm left inguinal lymph node. The abdominal wall is otherwise unremarkable. Minimal degenerative changes of the lumbar spine. CT/Abdomen/Pelvis without Cont IMPRESSION: 1. Persistent bilateral hydronephrosis and ureterectasis perinephric fat stranding unchanged from prior study. 2. Persistently distended urinary bladder without evidence for obstruction. 3. Stable retroperitoneal and left inguinal lymphadenopathy. 4. No evidence of the ileus suspected on the previous study. 5. No interval change when compared to the prior study. Electronically Signed: Ryan Dooley DO at 23:39 EST Tel [phone], Service support ,
--- NOTE | 2018-12-13 23:17 | HP.PCM_ITS ---
Problem List (1) Urinary tract infection Status: Acute Qualifiers: (2) Sepsis Status: Acute (3) Cervical cancer Status: Chronic (4) Bilateral hydronephrosis Status: Chronic (5) Acute diarrhea Status: Acute (6) Hyponatremia Status: Chronic (7) Hypokalemia Status: Acute (8) High anion gap metabolic acidosis Status: Resolved (9) Hyperlipidemia Status: Chronic Qualifiers: (10) HTN (hypertension) Status: Chronic Qualifiers: (11) Mild intermittent asthma Status: Chronic History of Present Illness Date of Admission: 12/13/18 Chief Complaint: Fever for 1 day The patient is a 68 year old F with recurrent history of UTI, recently discharged 11/28/2018 after treatment for Klebsiella UTI discharged on 7 days of Keflex came to ER with fever for 1 day. Patient completed Keflex about 2 days ago. Patient also complained of increased urination and urgency along with generalized weakness but denies burning micturition. She feels irritation at the urethra. She has chronic urinary incontinence for 4-6 months. She also has a history of cervical cancer status post hysterectomy. Renal bladder ultrasound on 11/22/2018 reported as bilateral hydronephrosis but no renal calculi. No demonstrated mass within bladder normal wall thickness of distended bladder. Going back, she had intravenous pyelogram in December 2015 which showed bilateral hydronephrosis with suspicion of pyelonephritis. CT abdomen and pelvis without contrast ordered. 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 Cervical cancer C53.9 History of hysterectomy Z90.710 Allergies pravastatin Allergy (Verified 11/26/18 00:41) Chest tightness sulfamethoxazole [From Bactrim] Allergy (Verified 11/26/18 00:41) Shortness of breath trimethoprim [From Bactrim] Allergy (Verified 11/26/18 00:41) Shortness of breath methylprednisolone Adverse Reaction (Verified 11/26/18 00:41) Pain in joints novacaine Allergy (Uncoded 11/26/18 00:41) Unknown Home Medications: Ambulatory Orders Medication Instructions Recorded albuterol sulfate HFA 90 1 puff INHALATION Q6H PRN 07/25/18 mcg/actuation aerosol inhaler fluticasone 50 mcg/actuation nasal 1 spray INTRANASAL BID g 07/25/18 spray,suspension Amlodipine [Norvasc] 10 mg PO DAILY #30 tablet 11/24/18 Loperamide [Imodium] 2 mg PO Q2H PRN PRN capsule 11/24/18 Sodium Bicarbonate 650 mg PO BID #60 tablet 11/24/18 Cephalexin [Keflex] 500 mg PO Q6 #28 capsule 11/28/18 Surgical History: Surgical History (Last Reviewed 11/20/18 @ 23:33 by Tera Mercer MD) History of cardiac catheterization Onset Date: ~01/08/18 Z98.890 normal coronaries History of cholecystectomy Z90.49 Surgical History: hysterectomy, - - Cholecystectomy; and Mass removed from kidney, rt ureteral stent plaement in 2016 Smoking Status: Never smoker - *Family History Paternal Family History: Family History (Last Reviewed 11/21/18 @ 03:49 by Tera Mercer MD) Father CAD (coronary artery disease) History of coronary artery bypass surgery History Items: Heart Disease - at age 32yrs Review of Systems Constitutional: Reports: Chills, Fever, Weakness, Fatigue HEENT: Denies: Head Aches, Sinus Congestion, Sinus Drainage Cardiovascular: Denies: Chest Pain, Palpitations Respiratory: Denies: Cough, Shortness of breath at rest, Sputum production Gastrointestinal: Reports: Nausea. Denies: Abdominal Pain, Vomiting Genitourinary: Reports: Frequency, Incontinence, Urgency. Denies: Dysuria Musculoskeletal: Denies: Joint Pain, Joint Tenderness Skin: Denies: Rash, Wounds Neurological: Reports: Balance problems. Denies: Focal weakness, Numbness, Tingling Psychiatric: Denies: Anxiety, Depression, Homicidal Ideations, Suicidal Ideations Hematologic/ Lymphatic: Denies: Easy Bruising, Easy Bleeding VTE Information - Inpt Only VTE Present on Admission: No VTE Mechan Device Prophylaxis: None VTE Pharm Prophylaxis ordered?: Yes - Physical Exam General: Alert, Oriented x3, Cooperative HEENT: Atraumatic, PERRLA, EOMI, Normocephalic Oral: Dry Mucosa Neck: Supple, No JVD, Negative Carotid Bruits Lungs: Clear to auscultation, No rhonchi, No wheeze, No rales, Diminished Cardiovascular: Regular rate, Normal S1, Normal S2, No murmurs, Tachycardic, - - PSAs Abdomen: Bowel Sounds Present, Soft, Non Tender, Non-Distended, - - Urinary incontinence. No suprapubic or renal angle tenderness. Extremities: No edema, Capillary Refill Less than 3 Seconds Skin: No rashes, No breakdown Musculoskeletal: No Tenderness to Palpation of Joints or Extremities, Arthritic Changes Neurological: Cranial nerves II-XII grossly intact, Deep Tendon Reflexes 2+/4 and Symmetrical, Neuro grossly intact Psych/Mental Status: Normal Affect, Appropriate Vital Signs Temp Pulse Resp BP Pulse Ox 100.7 F H 120 H 15 143/87 H 94 12/13/18 22:16 12/13/18 22:17 12/13/18 22:17 12/13/18 22:17 12/13/18 22:17 Oxygen Delivery Method Room Air Weight: 199 lb 4.766 oz Body Mass Index (BMI) 30.3 Finger Stick Blood Glucose 92 Microbiology Past 72 Hours 12/13/18 21:50 Influenza Types A,B Direct FA (LEVI) - Final Mucosa - Nose Laboratory Tests Past 24 Hrs 12/13/18 12/13/18 12/13/18 21:35 21:35 21:35 WBC 17.9 H RBC 3.63 L Hgb 11.6 L Hct 35.6 L MCV 98.1 MCH 32.0 MCHC 32.6 RDW 14.8 H RDW Differential 51.2 H Plt Count 463 H MPV 10.1 Immature Gran % (Auto) 0.500 Neut % (Auto) 83.7 H Lymph % (Auto) 9.0 L [place] % (Auto) 6.4 Eos % (Auto) 0.2 Baso % (Auto) 0.2 Absolute Neuts (auto) 15.0 H Absolute Lymphs (auto) 1.61 Total Counted Not Reportable PT 13.7 INR 1.1 APTT 26.9 Sodium 137 Potassium 2.8 L Chloride 100 Carbon Dioxide 27.0 Anion Gap 10 BUN 16 Creatinine 3.26 H Estim Creat Clear Calc 17.12 Est GFR (MDRD) Af Amer 18 L Est GFR (MDRD) Non-Af 15 L BUN/Creatinine Ratio 4.9 L Glucose 137 H Lactic Acid Calcium 7.5 L Total Bilirubin 0.60 AST 19 ALT 12 L Alkaline Phosphatase 92 Total Protein 8.2 Albumin 2.4 L Globulin 5.8 H Albumin/Globulin Ratio 0.4 L Urine Color Urine Clarity Urine pH Ur Specific [place] Urine Protein Urine Glucose (UA) Urine Ketones Urine Occult Blood Urine Nitrite Urine Bilirubin Urine Urobilinogen Ur Leukocyte Esterase Urine RBC Urine WBC Ur Squamous Epith Cells Amorphous Sediment Urine Bacteria Hyaline Casts Urine Mucus 12/13/18 12/13/18 21:35 22:12 WBC RBC Hgb Hct MCV MCH MCHC RDW RDW Differential Plt Count MPV Immature Gran % (Auto) Neut % (Auto) Lymph % (Auto) [place] % (Auto) Eos % (Auto) Baso % (Auto) Absolute Neuts (auto) Absolute Lymphs (auto) Total Counted PT INR APTT Sodium Potassium Chloride Carbon Dioxide Anion Gap BUN Creatinine Estim Creat Clear Calc Est GFR (MDRD) Af Amer Est GFR (MDRD) Non-Af BUN/Creatinine Ratio Glucose Lactic Acid 1.6 Calcium Total Bilirubin AST ALT Alkaline Phosphatase Total Protein Albumin Globulin Albumin/Globulin Ratio Urine Color Yellow Urine Clarity Cloudy Urine pH 7.0 Ur Specific [place] 1.010 Urine Protein 500 H Urine Glucose (UA) Normal Urine Ketones Negative Urine Occult Blood 250 H Urine Nitrite Positive H Urine Bilirubin Negative Urine Urobilinogen Normal Ur Leukocyte Esterase 100 H Urine RBC 25-50 SEEN Urine WBC 25-50 SEEN Ur Squamous Epith Cells 5-10 SEEN Amorphous Sediment 3+ PHOS Urine Bacteria 2+ Hyaline Casts 0-5 SEEN Urine Mucus 0 SEEN Assessment/Plan All Active Problems (Last Reviewed 11/20/18 @ 23:33 by Tera Mercer MD) Urinary tract infection (Acute) Sepsis (Acute) Acute diarrhea (Acute) Hypokalemia (Acute) High anion gap metabolic acidosis (Resolved) H/O Dunbar's palsy (Resolved) Hx of cervical cancer (Resolved) The patient is a 68 year old F with recurrent history of UTI, recently discharged 11/28/2018 after treatment for Klebsiella UTI and bacteremia and AK discharged on 7 days of Keflex came to ER with fever for 1 day. Patient completed Keflex about 2 days ago. Patient also complained of increased urination and urgency along with generalized weakness but denies burning micturition. She feels irritation at the urethra. She has chronic urinary incontinence for 4-6 months. She also has a history of cervical cancer status post hysterectomy. Renal bladder ultrasound on 11/22/2018 reported as bilateral hydronephrosis but no renal calculi. No demonstrated mass within bladder normal wall thickness of distended bladder. Going back, she had intravenous pyelogram in December 2015 which showed bilateral hydronephrosis with suspicion of pyelonephritis. In ED, she meets criteria of sepsis with fever 102.3, tachycardia heart rate 132/min and leukocytosis with left shift and evidence of UTI in UA. She is admitted for further management. CT abdomen and pelvis without contrast ordered. 1. Sepsis secondary to acute on recurrent complicated UTI, suspect pyelonephritis: The patient is being admitted in PCU. Started on IV ceftriaxone based on the previous urinary culture and sensitivity showed Klebsiella pneumoniae. Follow sepsis protocol with IV fluid, monitor intake and output. Lactic acid was normal. Consult urology, Dr. Strickland. UA is positive of nitrite, WBC 25-50 cells and leukocyte esterase positive and urine bacteria 2+. Follow blood culture and urine culture sent in the ER 2. History of bilateral hydronephrosis and kidney stone: Follow CT abdomen and pelvis. Last renal ultrasound as mentioned above did not show kidney mass or bladder mass or stone. 3. Acute kidney injury on CKD stage III: She had normal creatinine 1.02 in July 2018 was last admission was acute kidney injury with 4.5 creatinine. Currently 3.26, better than discharge 2.56. IV fluid normal saline. Monitor intake and output. Avoid nephrotoxic medications 4. Hypokalemia: K2.8. Replace potassium. Magnesium and phosphorous and BMP ordered for tomorrow a.m. 5. Hypertension, dyslipidemia, morbid obesity: Continue home medications. 6. Mild intermittent asthma: DuoNeb every 4 hourly as needed. Home medication reconciliation done. Multiple comorbidities complicates the present care and expect difficult and delay recovery This note was generated with [employer] dictation software. Every effort was made to ensure accuracy, however computerized laser operator mistakes may persist. Code Visit Inpatient E&M: 36056 Init Hosp L3
[2018-12-14] VITALS (19 sets, daily range): BP systolic 102–182; BP diastolic 57–73; PULSE 96–141; RESP 15–18; TEMP 36.9–38.5; O2SAT 92–99; BMI 29.1
[2018-12-14] MEDS: 0.9% Normal Saline 1,000 ML 125 ML IV (00:17)
[2018-12-14] MEDS: Enoxaparin 30 MG/0.3 ML Syringe SC (00:18)
[2018-12-14] MEDS: Potassium Chloride 10mEq/100mL 10 MEQ/100 ML IV.SOLN. 100 MEQ IV BOLUS ×4 (00:18→09:24)
[2018-12-14] MEDS: Acetaminophen 325 MG Tablet 650 MG PO (04:04)
[2018-12-14] MEDS: 0.9% NaCl Peripheral Flush Adult/Peds IV (04:48)
[2018-12-14] MEDS: Ondansetron 4 MG/2 ML Vial IV ×2 (04:48→21:55)
[2018-12-14] MEDS: amLODIPine 10 MG Tablet PO (05:44)
[2018-12-14] MEDS: Piperacil/Tazobactam 3.375 GM/50 ML ML IV ×2 (06:11→21:58)
[2018-12-14 06:30] LABS: Absolute Lymphocyte Count 1.51 X10^3/ul (0.83-4.51); Basophil# 0.03 X10^3/uL; Basophil% 0.2 % (0-1); Hematocrit 33.8 % (37-47); Hemoglobin 10.9 g/dl (12.0-15.0); Lymphocyte # 1.51 X10^3/ul (4.0); Mean Corp Hgb Conc 32.2 g/gl (32-36); Mean Corpuscular Hgb 31.9 pg (27.0-32.0); Mean Corpuscular Volume 98.8 fL (81-99); Mean Platelet Vol. 10.6 fl (6.2-12.0); Monocyte# 1.22 X10^3/uL; Monocyte% 6.5 % (0-10); Neutrophil # 16.01 X10^3/uL (2.7-7.7); Platelet Count 381 K/mm3 (150-450); RBC Distribution Width CV 14.7 % (11.6-14.6); RBC Distribution Width SD 51.1 fl (35.1-43.9); Red Blood Count 3.42 M/mm3 (4.2-5.4); White Blood Count 18.8 K/mm3 (4.4-11.0)
[2018-12-14 06:35] LABS: POSITIVE COUNT NO; POSITIVE DIFFERENTIAL NO; POSITIVE MORPHOLOGY NO
--- NOTE | 2018-12-14 07:17 | CON.PCM_ITS ---
Problem List (1) Urinary tract infection Status: Acute Qualifiers: Urinary tract infection type: acute cystitis Hematuria presence: without hematuria Qualified Code(s): N30.00 - Acute cystitis without hematuria (2) Bilateral hydronephrosis Status: Chronic Comment: worsening. Reason for Consult Date of Consultation: 12/14/18 Reason for Consultation: UTI and hydronephrosis History of Present Illness: The patient is a 68 year old female who I saw recently for UTI in the hospital. h/o hysterectomy and xrt in the past. Dr rodriguez had to place stents a few year ago then removed then and then patient failed to follow up. Back in the hospital last time appeared to have chronic bilateral hydro. CT scan done very distended bladder unclear if has reflux and a poor bladder empyting or bilateral hydro from obstruction. patient is npo for. plan to take to surgery today for cysto, bilateral retrogrades to see if she has any obstruction and placement of a morton catheter and possible stents. Past Medical History Past Medical History (Chronic Problems): Chronic Problems (Last Reviewed 11/20/18 @ 23:33 by Tera Mercer MD) Cervical cancer (Chronic) Bilateral hydronephrosis (Chronic) worsening. 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 Cervical cancer C53.9 History of hysterectomy Z90.710 Allergies pravastatin Allergy (Verified 11/26/18 00:41) Chest tightness sulfamethoxazole [From Bactrim] Allergy (Verified 11/26/18 00:41) Shortness of breath trimethoprim [From Bactrim] Allergy (Verified 11/26/18 00:41) Shortness of breath methylprednisolone Adverse Reaction (Verified 11/26/18 00:41) Pain in joints novacaine Allergy (Uncoded 11/26/18 00:41) Unknown Home Medications: Ambulatory Orders Medication Instructions Recorded albuterol sulfate HFA 90 1 puff INHALATION Q6H PRN 07/25/18 mcg/actuation aerosol inhaler fluticasone 50 mcg/actuation nasal 1 spray INTRANASAL BID g 07/25/18 spray,suspension Amlodipine [Norvasc] 10 mg PO DAILY #30 tablet 11/24/18 Loperamide [Imodium] 2 mg PO Q2H PRN PRN capsule 11/24/18 Sodium Bicarbonate 650 mg PO BID #60 tablet 11/24/18 Cephalexin [Keflex] 500 mg PO Q6 #28 capsule 11/28/18 Surgical History: Surgical History (Last Reviewed 12/14/18 @ 07:18 by Joshua Strickland MD) History of cardiac catheterization Onset Date: ~01/08/18 Z98.890 normal coronaries History of cholecystectomy Z90.49 Surgical History: hysterectomy, - - Cholecystectomy; and Mass removed from kidney, rt ureteral stent plaement in 2016 Smoking Status: Never smoker - *Family History Paternal Family History: Family History (Last Reviewed 11/21/18 @ 03:49 by Tera Mercer MD) Father CAD (coronary artery disease) History of coronary artery bypass surgery History Items: Heart Disease - at age 34yrs Review of Systems Constitutional: Reports: Chills, Fever HEENT: Denies: Head Aches, Sinus Congestion, Sinus Drainage Cardiovascular: Denies: Chest Pain, Palpitations Respiratory: Denies: Cough, Shortness of breath at rest, Sputum production Gastrointestinal: Denies: Abdominal Pain, Nausea, Vomiting Genitourinary: Denies: Dysuria Musculoskeletal: Denies: Joint Pain, Joint Tenderness Skin: Denies: Rash, Wounds Neurological: Denies: Numbness, Tingling, Focal weakness Psychiatric: Denies: Anxiety, Depression, Homicidal Ideations, Suicidal Ideations Hematologic/ Lymphatic: Denies: Easy Bruising, Easy Bleeding Physical Exam - Physical Exam Vital Signs Temp 99.0 F 12/14/18 06:15 Pulse 114 H 12/14/18 06:15 Resp 18 12/14/18 06:15 BP 108/61 12/14/18 06:15 Pulse Ox 95 12/14/18 06:15 Intake & Output 12/12/18 12/13/18 12/14/18 23:59 23:59 23:59 Intake Total 1788 / 1788 Output Total 400 / 400 Balance 1388 / 1388 Weight: 87.2 kg Intake: Oral 480 / 480 IV fluid/meds 1308 / 1308 Output: Urine 400 / 400 Microbiology Past 72 Hours 12/13/18 21:50 Influenza Types A,B Direct FA (LEVI) - Final Mucosa - Nose Laboratory Tests Past 24 Hrs 12/13/18 12/13/18 12/13/18 21:35 21:35 21:35 WBC 17.9 H RBC 3.63 L Hgb 11.6 L Hct 35.6 L MCV 98.1 MCH 32.0 MCHC 32.6 RDW 14.8 H RDW Differential 51.2 H Plt Count 463 H MPV 10.1 Immature Gran % (Auto) 0.500 Neut % (Auto) 83.7 H Lymph % (Auto) 9.0 L [place] % (Auto) 6.4 Eos % (Auto) 0.2 Baso % (Auto) 0.2 Absolute Neuts (auto) 15.0 H Absolute Lymphs (auto) 1.61 Total Counted Not Reportable PT 13.7 INR 1.1 APTT 26.9 Sodium 137 Potassium 2.8 L Chloride 100 Carbon Dioxide 27.0 Anion Gap 10 BUN 16 Creatinine 3.26 H Estim Creat Clear Calc 17.12 Est GFR (MDRD) Af Amer 18 L Est GFR (MDRD) Non-Af 15 L BUN/Creatinine Ratio 4.9 L Glucose 137 H Lactic Acid Calcium 7.5 L Phosphorus Magnesium Total Bilirubin 0.60 AST 19 ALT 12 L Alkaline Phosphatase 92 Total Protein 8.2 Albumin 2.4 L Globulin 5.8 H Albumin/Globulin Ratio 0.4 L Urine Color Urine Clarity Urine pH Ur Specific [place] Urine Protein Urine Glucose (UA) Urine Ketones Urine Occult Blood Urine Nitrite Urine Bilirubin Urine Urobilinogen Ur Leukocyte Esterase Urine RBC Urine WBC Ur Squamous Epith Cells Amorphous Sediment Urine Bacteria Hyaline Casts Urine Mucus 12/13/18 12/13/18 12/14/18 21:35 22:12 05:44 WBC 18.8 H RBC 3.42 L Hgb 10.9 L Hct 33.8 L MCV 98.8 MCH 31.9 MCHC 32.2 RDW 14.7 H RDW Differential 51.1 H Plt Count 381 MPV 10.6 Immature Gran % (Auto) 0.300 Neut % (Auto) 85.0 H Lymph % (Auto) 8.0 L [place] % (Auto) 6.5 Eos % (Auto) 0.0 Baso % (Auto) 0.2 Absolute Neuts (auto) 16.0 H Absolute Lymphs (auto) 1.51 Total Counted Not Reportable PT INR APTT Sodium Potassium Chloride Carbon Dioxide Anion Gap BUN Creatinine Estim Creat Clear Calc Est GFR (MDRD) Af Amer Est GFR (MDRD) Non-Af BUN/Creatinine Ratio Glucose Lactic Acid 1.6 Calcium Phosphorus Magnesium Total Bilirubin AST ALT Alkaline Phosphatase Total Protein Albumin Globulin Albumin/Globulin Ratio Urine Color Yellow Urine Clarity Cloudy Urine pH 7.0 Ur Specific [place] 1.010 Urine Protein 500 H Urine Glucose (UA) Normal Urine Ketones Negative Urine Occult Blood 250 H Urine Nitrite Positive H Urine Bilirubin Negative Urine Urobilinogen Normal Ur Leukocyte Esterase 100 H Urine RBC 25-50 SEEN Urine WBC 25-50 SEEN Ur Squamous Epith Cells 5-10 SEEN Amorphous Sediment 3+ PHOS Urine Bacteria 2+ Hyaline Casts 0-5 SEEN Urine Mucus 0 SEEN 12/14/18 05:44 WBC RBC Hgb Hct MCV MCH MCHC RDW RDW Differential Plt Count MPV Immature Gran % (Auto) Neut % (Auto) Lymph % (Auto) [place] % (Auto) Eos % (Auto) Baso % (Auto) Absolute Neuts (auto) Absolute Lymphs (auto) Total Counted PT INR APTT Sodium Pending Potassium Pending Chloride Pending Carbon Dioxide Pending Anion Gap Pending BUN Pending Creatinine Pending Estim Creat Clear Calc Est GFR (MDRD) Af Amer Pending Est GFR (MDRD) Non-Af Pending BUN/Creatinine Ratio Pending Glucose Pending Lactic Acid Calcium Pending Phosphorus Pending Magnesium Pending Total Bilirubin AST ALT Alkaline Phosphatase Total Protein Albumin Globulin Albumin/Globulin Ratio Urine Color Urine Clarity Urine pH Ur Specific [place] Urine Protein Urine Glucose (UA) Urine Ketones Urine Occult Blood Urine Nitrite Urine Bilirubin Urine Urobilinogen Ur Leukocyte Esterase Urine RBC Urine WBC Ur Squamous Epith Cells Amorphous Sediment Urine Bacteria Hyaline Casts Urine Mucus Assessment/Plan All Active Problems (Last Reviewed 11/20/18 @ 23:33 by Tera Mercer MD) Urinary tract infection (Acute) Sepsis (Acute) Acute diarrhea (Acute) Hypokalemia (Acute) High anion gap metabolic acidosis (Resolved) H/O Dunbar's palsy (Resolved) Hx of cervical cancer (Resolved) 68 yo female with b/l hydronephrosis and UTI could be reflux or obstruction. NPO for surgery today. plan to perform retrograde pyelograms to see if any ureter blockage if none then she maybe refluxing, likely will place stents to see if UTI clears and will improve hydronephrosis. Will discuss these plans with patient before surgery.
[2018-12-14 07:31] LABS: Anion Gap 14 (5-15); BUN 18 mg/dL (7-18); BUN/Creat Ratio 5.3 RATIO (10-20); Calcium,Total 7.1 mg/dL (8.5-10.1); Chloride 104 mmol/L (98-107); Creatinine, Serum 3.37 mg/dL (0.55-1.02); EST Glomerular Filtration Rate 15 mL/min (>60); Est Glom Filt Rate - Afr Amer 18 mL/min (>60); Estimated Creatinine Clearance 16.56 ml/min; Glucose 116 mg/dL (74-106); Phosphorus 3.4 mg/dL (2.5-4.9); Sodium Level 141 mmol/L (136-145)
--- NOTE | 2018-12-14 07:38 | PCM.PN.BLA ---
Progress Note 68 y/o F seen on consult last hospitalization on 11/26/18 for LULY due to obstructive nephropathy, UTI, dehydraton. Readmitted for fever, recurrent UTI, LULY with hypokalemia. Creatinine remains elevated due to urinary retention, obstruction. CT abdomen with bilateral hydronephrosis and hydroureter. Started on iv antibx renal dosed and iv hydration. consulted. Currently nonoliguric with no urgent indication for dialysis. Recommend PNT or ureteral stent placement by . Continue to monitor renal function. Replace potassium as needed. Stop bicarbonate tablets.
--- NOTE | 2018-12-14 10:15 | CASEMGMT ---
RN KAYA Face to Face with patient for initial transition planning/care coordination assessment. RN KAYA introduced self and role at [facility]. Patient lying in bed, alert and oriented, brother at bedside. Patient willing to participate in assessment and is able to answer all questions appropriately. Care providers, pharmacy, and demographics verified. Patient wishes to discharge home, denies need for home health at this time. Patient states she has no further needs or concerns at this time. CM to follow for discharge planning needs that may arise. PCP: Ricky Specialists: None Preferred Pharmacy: [facility] Insurance: [facility] Prescription Benefit: Patient believes she has prescription coverage Living Will/HPOA: None LNOK: , brother at bedside Living Arrangements: Patient lives with in 2 story home, patient able to navigate stairs, independent at home. Transportation: , patient does not drive DME/HHC: Patient states she has BSC, denies further DME needs. No previous HHC, denies need Disposition Plan: Patient to discharge home with family support and follow-up plans in place. Elena ZHOUN, RN, CM
[2018-12-14] MEDS: 0.9% Normal Saline 1,000 ML 100 ML IV ×2 (11:00→16:56)
--- NOTE | 2018-12-14 11:56 | PCM.PN.HOSP ---
Patient Problems: Active and Suspected Problems (Last Reviewed 12/14/18 @ 07:17 by Joshua Strickland MD) Urinary tract infection (Acute) Sepsis (Acute) Hypokalemia (Acute) Subjective: Feels slightly better. Still tired. Vitals/I&O's: Vital Signs Temp Pulse Resp BP Pulse Ox 38.4 C H 109 H 17 109/60 94 12/14/18 10:23 12/14/18 11:07 12/14/18 10:23 12/14/18 10:23 12/14/18 10:23 Oxygen Delivery Method Room Air Weight: 87.2 kg Body Mass Index (BMI) 29.1 Finger Stick Blood Glucose 92 Intake and Output for Last 24 Hours 12/12/18 12/13/18 12/14/18 23:59 23:59 23:59 Intake Total 1788 / 1788 Output Total 400 / 400 Balance 1388 / 1388 General: Alert, No apparent distress HEENT: Atraumatic, Normocephalic Oral: Moist Mucosa, No Gingival or Mucosal Lesions/ Ulcerations Neck: No Nodes, Thyroid Normal Size and Texture Lungs: Clear to auscultation, Normal air movement, No rhonchi, No wheeze Cardiovascular: Regular rate, Regular Rhythm, Normal S1, Normal S2, No murmurs Abdomen: Bowel Sounds Present, Soft, Non Tender, Non-Distended, No Hepato-splenomegaly Extremities: No edema, No Calf Tenderness Skin: No rashes, No breakdown Psych/Mental Status: Normal Affect, Appropriate Microbiology Past 72 Hours 12/13/18 22:12 Urine, Clean Catch Urine Culture - Preliminary Gram negative king 12/13/18 21:50 Mucosa - Nose Influenza Types A,B Direct FA (LEVI) - Final Laboratory Results 12/13/18 21:35: WBC 17.9 H, RBC 3.63 L, Hgb 11.6 L, Hct 35.6 L, MCV 98.1, MCH 32.0, MCHC 32.6, RDW 14.8 H, RDW Differential 51.2 H, Plt Count 463 H, MPV 10.1, Immature Gran % (Auto) 0.500, Neut % (Auto) 83.7 H, Lymph % (Auto) 9.0 L, [place] % (Auto) 6.4, Eos % (Auto) 0.2, Baso % (Auto) 0.2, Absolute Neuts (auto) 15.0 H, Absolute Lymphs (auto) 1.61, Total Counted Not Reportable 12/13/18 21:35: PT 13.7, INR 1.1, APTT 26.9 12/13/18 21:35: Sodium 137, Potassium 2.8 L, Chloride 100, Carbon Dioxide 27.0, Anion Gap 10, BUN 16, Creatinine 3.26 H, Estim Creat Clear Calc 17.12, Est GFR (MDRD) Af Amer 18 L, Est GFR (MDRD) Non-Af 15 L, BUN/Creatinine Ratio 4.9 L, Glucose 137 H, Calcium 7.5 L, Total Bilirubin 0.60, AST 19, ALT 12 L, Alkaline Phosphatase 92, Total Protein 8.2, Albumin 2.4 L, Globulin 5.8 H, Albumin/Globulin Ratio 0.4 L 12/13/18 21:35: Lactic Acid 1.6 12/13/18 22:12: Urine Color Yellow, Urine Clarity Cloudy, Urine pH 7.0, Ur Specific [place] 1.010, Urine Protein 500 H, Urine Glucose (UA) Normal, Urine Ketones Negative, Urine Occult Blood 250 H, Urine Nitrite Positive H, Urine Bilirubin Negative, Urine Urobilinogen Normal, Ur Leukocyte Esterase 100 H, Urine RBC 25-50 SEEN, Urine WBC 25-50 SEEN, Ur Squamous Epith Cells 5-10 SEEN, Amorphous Sediment 3+ PHOS, Urine Bacteria 2+, Hyaline Casts 0-5 SEEN, Urine Mucus 0 SEEN 12/14/18 05:44: WBC 18.8 H, RBC 3.42 L, Hgb 10.9 L, Hct 33.8 L, MCV 98.8, MCH 31.9, MCHC 32.2, RDW 14.7 H, RDW Differential 51.1 H, Plt Count 381, MPV 10.6, Immature Gran % (Auto) 0.300, Neut % (Auto) 85.0 H, Lymph % (Auto) 8.0 L, [place] % (Auto) 6.5, Eos % (Auto) 0.0, Baso % (Auto) 0.2, Absolute Neuts (auto) 16.0 H, Absolute Lymphs (auto) 1.51, Total Counted Not Reportable 12/14/18 05:44: Sodium 141, Potassium 3.0 L, Chloride 104, Carbon Dioxide 23.0, Anion Gap 14, BUN 18, Creatinine 3.37 H, Estim Creat Clear Calc 16.56, Est GFR (MDRD) Af Amer 18 L, Est GFR (MDRD) Non-Af 15 L, BUN/Creatinine Ratio 5.3 L, Glucose 116 H, Calcium 7.1 L, Phosphorus 3.4, Magnesium 1.0 L Clinical Impression(s) from Imaging Studies Chest X-Ray 12/13/18 21:45 IMPRESSION: Normal x-ray examination of the chest. Electronically Signed: Tanmay Baker DO at 23:06 EST Tel [phone], Service support , Abdomen/Pelvis CT 12/13/18 22:40 IMPRESSION: 1. Persistent bilateral hydronephrosis and ureterectasis perinephric fat stranding unchanged from prior study. 2. Persistently distended urinary bladder without evidence for obstruction. 3. Stable retroperitoneal and left inguinal lymphadenopathy. 4. No evidence of the ileus suspected on the previous study. 5. No interval change when compared to the prior study. Electronically Signed: Ryan Dooley DO at 23:39 EST Tel [phone], Service support , Current Medications Acetaminophen (Tylenol) 650 mg PO Q6H PRN PRN PRN Reason: Mild Pain (scale 0-3)/T>100.7 Last Admin: 12/14/18 04:04 Dose: 650 mg Albuterol Sulfate (Ventolin Aerosols) 2.5 mg INHALATION Q4H PRN PRN PRN Reason: SOB &/OR WHEEZING Amlodipine Besylate (Norvasc) 10 mg PO DAILY [facility] Last Admin: 12/14/18 05:44 Dose: 10 mg Bisacodyl (Dulcolax) 10 mg RECTAL DAILY PRN PRN PRN Reason: Constipation Docusate Sodium (Colace) 200 mg PO BID PRN PRN PRN Reason: Constipation Enoxaparin Sodium (Lovenox) 30 mg SC DAILY [facility] Last Admin: 12/14/18 00:18 Dose: 30 mg Fluticasone Propionate (Flonase Nasal [place]) 1 spray NASAL BID CINDY Hydralazine HCl (Apresoline Iv) 10 mg IV Q4H PRN PRN PRN Reason: SBP>180 mmhg Piperacillin Sod/Tazobactam Sod (Zosyn) 3.375 gm in 50 mls @ 12.5 mls/hr IV Q12 CINDY Last Admin: 12/14/18 06:11 Dose: 12.5 mls/hr Sodium Chloride () 1,000 mls @ 100 mls/hr IV .Q10H CINDY Loperamide HCl (Imodium) 2 mg PO Q2H PRN PRN PRN Reason: Diarrhea Morphine Sulfate () 1 - 2 mg IV Q4H PRN PRN PRN Reason: SEVERE PAIN (6-08/28) Nutritional Formula (Lactose Free) (Ensure Enlive) 120 ml PO 4X/DAY CINDY Ondansetron HCl (Zofran) 4 mg IV Q8H PRN PRN PRN Reason: Nausea Last Admin: 12/14/18 04:48 Dose: 4 mg Oxycodone HCl (Oxyir) 5 mg PO Q4H PRN PRN PRN Reason: Moderate Pain (pain scale 4-5) Polyethylene Glycol (Miralax) 17 gm PO DAILY [facility] Sodium Chloride () 5 - 15 ml IV UD PRN PRN Reason: SALINE FLUSH Last Admin: 12/14/18 04:48 Dose: 10 ml Medical Necessity - Tobacco Use Smoking Status: Never smoker Assessment/Plan All Active Problems (Last Reviewed 12/14/18 @ 07:17 by Joshua Strickland MD) Urinary tract infection (Acute) Sepsis (Acute) Acute diarrhea (Acute) Hypokalemia (Acute) High anion gap metabolic acidosis (Resolved) H/O Dunbar's palsy (Resolved) Hx of cervical cancer (Resolved) 1. UTI On Zosyn follow up UCx. Adjust abx accordingly 2. Sepsis POA 2/2 UTI improved 3. Bilateral hydronephrosis For Cysto today to eval for obstruction CT negative for any obvious mass If cysto negative, may need Tube Bending Machine Operator involvement given history of cervical CA 4. LULY Overall improved IVF nephrology following. 5. Hypokalemia replace monitor 6. Hypomagnesemia replace complicates K replacement until it is replete 7. DVT proph: LMWH Code Visit Inpatient E&M: 88352 Subs Hosp L2
--- NOTE | 2018-12-14 12:02 | PN_ITS ---
Patient Problems: Active and Suspected Problems (Last Reviewed 12/14/18 @ 07:17 by Joshua Strickland MD) Urinary tract infection (Acute) Sepsis (Acute) Hypokalemia (Acute) Subjective: Feels slightly better. Still tired. Vitals/I&O's: Vital Signs Temp Pulse Resp BP Pulse Ox 38.4 C H 109 H 17 109/60 94 12/14/18 10:23 12/14/18 11:07 12/14/18 10:23 12/14/18 10:23 12/14/18 10:23 Oxygen Delivery Method Room Air Weight: 87.2 kg Body Mass Index (BMI) 29.1 Finger Stick Blood Glucose 92 Intake and Output for Last 24 Hours 12/12/18 12/13/18 12/14/18 23:59 23:59 23:59 Intake Total 1788 / 1788 Output Total 400 / 400 Balance 1388 / 1388 General: Alert, No apparent distress HEENT: Atraumatic, Normocephalic Oral: Moist Mucosa, No Gingival or Mucosal Lesions/ Ulcerations Neck: No Nodes, Thyroid Normal Size and Texture Lungs: Clear to auscultation, Normal air movement, No rhonchi, No wheeze Cardiovascular: Regular rate, Regular Rhythm, Normal S1, Normal S2, No murmurs Abdomen: Bowel Sounds Present, Soft, Non Tender, Non-Distended, No Hepato- splenomegaly Extremities: No edema, No Calf Tenderness Skin: No rashes, No breakdown Psych/Mental Status: Normal Affect, Appropriate Microbiology Past 72 Hours 12/13/18 22:12 Urine, Clean Catch Urine Culture - Preliminary Gram negative king 12/13/18 21:50 Mucosa - Nose Influenza Types A,B Direct FA (LEVI) - Final Laboratory Results 12/13/18 21:35: WBC 17.9 H, RBC 3.63 L, Hgb 11.6 L, Hct 35.6 L, MCV 98.1, MCH 32.0, MCHC 32.6, RDW 14.8 H, RDW Differential 51.2 H, Plt Count 463 H, MPV 10.1, Immature Gran % (Auto) 0.500, Neut % (Auto) 83.7 H, Lymph % (Auto) 9.0 L, [place] % (Auto) 6.4, Eos % (Auto) 0.2, Baso % (Auto) 0.2, Absolute Neuts (auto) 15.0 H, Absolute Lymphs (auto) 1.61, Total Counted Not Reportable 12/13/18 21:35: PT 13.7, INR 1.1, APTT 26.9 12/13/18 21:35: Sodium 137, Potassium 2.8 L, Chloride 100, Carbon Dioxide 27.0, Anion Gap 10, BUN 16, Creatinine 3.26 H, Estim Creat Clear Calc 17.12, Est GFR (MDRD) Af Amer 18 L, Est GFR (MDRD) Non-Af 15 L, BUN/Creatinine Ratio 4.9 L, Glucose 137 H, Calcium 7.5 L, Total Bilirubin 0.60, AST 19, ALT 12 L, Alkaline Phosphatase 92, Total Protein 8.2, Albumin 2.4 L, Globulin 5.8 H, Albumin/Globulin Ratio 0.4 L 12/13/18 21:35: Lactic Acid 1.6 12/13/18 22:12: Urine Color Yellow, Urine Clarity Cloudy, Urine pH 7.0, Ur Specific [place] 1.010, Urine Protein 500 H, Urine Glucose (UA) Normal, Urine Ketones Negative, Urine Occult Blood 250 H, Urine Nitrite Positive H, Urine Bilirubin Negative, Urine Urobilinogen Normal, Ur Leukocyte Esterase 100 H, Urine RBC 25-50 SEEN, Urine WBC 25-50 SEEN, Ur Squamous Epith Cells 5-10 SEEN, Amorphous Sediment 3+ PHOS, Urine Bacteria 2+, Hyaline Casts 0-5 SEEN, Urine Mucus 0 SEEN 12/14/18 05:44: WBC 18.8 H, RBC 3.42 L, Hgb 10.9 L, Hct 33.8 L, MCV 98.8, MCH 31.9, MCHC 32.2, RDW 14.7 H, RDW Differential 51.1 H, Plt Count 381, MPV 10.6, Immature Gran % (Auto) 0.300, Neut % (Auto) 85.0 H, Lymph % (Auto) 8.0 L, [place] % (Auto) 6.5, Eos % (Auto) 0.0, Baso % (Auto) 0.2, Absolute Neuts (auto) 16.0 H, Absolute Lymphs (auto) 1.51, Total Counted Not Reportable 12/14/18 05:44: Sodium 141, Potassium 3.0 L, Chloride 104, Carbon Dioxide 23.0, Anion Gap 14, BUN 18, Creatinine 3.37 H, Estim Creat Clear Calc 16.56, Est GFR (MDRD) Af Amer 18 L, Est GFR (MDRD) Non-Af 15 L, BUN/Creatinine Ratio 5.3 L, Glucose 116 H, Calcium 7.1 L, Phosphorus 3.4, Magnesium 1.0 L Clinical Impression(s) from Imaging Studies Chest X-Ray 12/13/18 21:45 IMPRESSION: Normal x-ray examination of the chest. Electronically Signed: Tanmay Baker DO at 23:06 EST Tel [phone], Service support , Abdomen/Pelvis CT 12/13/18 22:40 IMPRESSION: 1. Persistent bilateral hydronephrosis and ureterectasis perinephric fat stranding unchanged from prior study. 2. Persistently distended urinary bladder without evidence for obstruction. 3. Stable retroperitoneal and left inguinal lymphadenopathy. 4. No evidence of the ileus suspected on the previous study. 5. No interval change when compared to the prior study. Electronically Signed: Ryan Dooley DO at 23:39 EST Tel [phone], Service support , Current Medications Acetaminophen (Tylenol) 650 mg PO Q6H PRN PRN PRN Reason: Mild Pain (scale 0-3)/T>100.7 Last Admin: 12/14/18 04:04 Dose: 650 mg Albuterol Sulfate (Ventolin Aerosols) 2.5 mg INHALATION Q4H PRN PRN PRN Reason: SOB &/OR WHEEZING Amlodipine Besylate (Norvasc) 10 mg PO DAILY [facility] Last Admin: 12/14/18 05:44 Dose: 10 mg Bisacodyl (Dulcolax) 10 mg RECTAL DAILY PRN PRN PRN Reason: Constipation Docusate Sodium (Colace) 200 mg PO BID PRN PRN PRN Reason: Constipation Enoxaparin Sodium (Lovenox) 30 mg SC DAILY [facility] Last Admin: 12/14/18 00:18 Dose: 30 mg Fluticasone Propionate (Flonase Nasal [place]) 1 spray NASAL BID CINDY Hydralazine HCl (Apresoline Iv) 10 mg IV Q4H PRN PRN PRN Reason: SBP>180 mmhg Piperacillin Sod/Tazobactam Sod (Zosyn) 3.375 gm in 50 mls @ 12.5 mls/hr IV Q12 CINDY Last Admin: 12/14/18 06:11 Dose: 12.5 mls/hr Sodium Chloride () 1,000 mls @ 100 mls/hr IV .Q10H CINDY Loperamide HCl (Imodium) 2 mg PO Q2H PRN PRN PRN Reason: Diarrhea Morphine Sulfate () 1 - 2 mg IV Q4H PRN PRN PRN Reason: SEVERE PAIN (6-08/28) Nutritional Formula (Lactose Free) (Ensure Enlive) 120 ml PO 4X/DAY CINDY Ondansetron HCl (Zofran) 4 mg IV Q8H PRN PRN PRN Reason: Nausea Last Admin: 12/14/18 04:48 Dose: 4 mg Oxycodone HCl (Oxyir) 5 mg PO Q4H PRN PRN PRN Reason: Moderate Pain (pain scale 4-5) Polyethylene Glycol (Miralax) 17 gm PO DAILY [facility] Sodium Chloride () 5 - 15 ml IV UD PRN PRN Reason: SALINE FLUSH Last Admin: 12/14/18 04:48 Dose: 10 ml Medical Necessity - Tobacco Use Smoking Status: Never smoker Assessment/Plan All Active Problems (Last Reviewed 12/14/18 @ 07:17 by Joshua Strickland MD) Urinary tract infection (Acute) Sepsis (Acute) Acute diarrhea (Acute) Hypokalemia (Acute) High anion gap metabolic acidosis (Resolved) H/O Dunbar's palsy (Resolved) Hx of cervical cancer (Resolved) 1. UTI On Zosyn follow up UCx. Adjust abx accordingly 2. Sepsis POA 2/2 UTI improved 3. Bilateral hydronephrosis For Cysto today to eval for obstruction CT negative for any obvious mass If cysto negative, may need Coal Hauler Operator involvement given history of cervical CA 4. LULY Overall improved IVF nephrology following. 5. Hypokalemia replace monitor 6. Hypomagnesemia replace complicates K replacement until it is replete 7. DVT proph: LMWH Code Visit Inpatient E&M: 40724 Subs Hosp L2
[2018-12-14] MEDS: Lidocaine Jelly 2% 20 ML Syringe (URO-JET) 20 APPLIC (14:02)
--- NOTE | 2018-12-14 14:28 | OP.PCM_ITS ---
Problem List (1) Urinary tract infection Status: Acute Qualifiers: Urinary tract infection type: acute cystitis Hematuria presence: without hematuria Qualified Code(s): N30.00 - Acute cystitis without hematuria (2) Bilateral hydronephrosis Status: Chronic Comment: worsening. Report of Operation Date of Procedure: 12/14/18 Pre-Operative Diagnosis: Bilateral hydronephrosis and urinary tract infection distended bladder Post-Operative Diagnosis: Same Surgery/Procedure Performed:: Cystoscopy left retrograde pyelogram left stent placement, right retrograde pyelogram right stent placement Description of Surgical Findings:: 68-year-old female presents to the hospital with bilateral hydronephrosis distended bladder she has a history of a nephrectomy in the past and pelvic radiation, at this point we will take her to surgery for a retrograde pyelogram to evaluate the anatomy and also place stents bilaterally and probably place a catheter. 68-year-old female taken back to the operating room at the smooth induction of anesthesia she was placed supine on the table and then dorsolithotomy position the urethra and vaginal area were prepped and draped in usual sterile fashion. I went into the bladder with a 21 [place] rigid cystourethroscope and immediately found the trigone was red and erythematous both the left and right ureteral orifices were patent but there was a lot of scar tissue in the base of the bladder going the entire length of the base of the bladder to the trigone the bladder was very distended and trabeculated, appeared to be a week and distended bladder chronic obstruction and also appear to have chronic scar tissue in the base of the bladder to the trigone area. I attempted to cannulate the left ureteral orifice but is quite difficult the ureter ureteral orifice very stenotic so I went to the right side and cannulated the right ureteral orifice was able to get into the ureter I then advanced the Pollack catheter did a retrograde pyelogram to see contrast going all the way up to the kidney and then a call in a contrast going all the way down to the bladder I took out the Morton catheter in the call of the contrast with sit in the ureter but would not drain into the bladder appeared to be a distal stricture in both ureters on the right side he could see that there is no drainage of contrast into the bladder so I decided to place a stent placed a stent on the right side this to allow the kidn ey to drain properly. I then went to the left side again the same thing we tried a catheter again and then we tried a Pollack catheter with angle-tip Glidewire and this time was able to get in very stenotic left ureteral orifice I did a retrograde pyelogram could see the contrast column going all the way down to the bladder appeared to be a distal ureteral obstruction probably from radiation injury to the bladder and the distal ureters. I then placed a stent on the left side this would allow the kidney and the drain in the left side and then placed the catheter in the bladder. So final findings were that both the left and right ureteral ureters were scarred down in the distal ureter right to the bladder I suspect this is probably from result of radiation long time ago the base of the bladder was also fairly scarred from radiation of the bladder is fairly distended. Plan to leave the catheter in for now she is going to need to learn how to do self intermittent catheterization with a poor bladder emptying and she is get any stents in because of the scar down ureters. Stents will need to be changed about every 6 months keep the kidney is draining. She will need to go home with a catheter and then in the office we can do self intermittent catheterization teaching and then I will need to see her in the office for checkup we will check a BMP she can also follow-up with her PCP as well call me if any questions. Type of Anesthesia:: General Drains: stent bilaterally, and morton - Admit VTE Documentation VTE Present on Admission: No VTE Mechan Device Prophylaxis: SCD's
[2018-12-14] MEDS: Fluticasone 0.05% 1 SPRAY NASAL.SRY NASAL ×2 (15:16→22:02)
[2018-12-14] MEDS: Magnesium Sulfate 4gm/100mL 4 GM/100 ML IV.SOLN. IV (15:30)
[2018-12-15] VITALS (11 sets, daily range): BP systolic 103–125; BP diastolic 55–82; PULSE 82–99; RESP 14–18; TEMP 36.7–37.2; O2SAT 93–98
[2018-12-15] MEDS: 0.9% Normal Saline 1,000 ML 100 ML IV ×3 (02:14→22:45)
[2018-12-15] MEDS: Acetaminophen 325 MG Tablet 650 MG PO (05:11)
[2018-12-15 06:05] LABS: Albumin, Serum 1.7 g/dL (3.2-5.0); BUN 20 mg/dL (7-18); BUN/Creat Ratio 6.6 RATIO (10-20); Calcium,Total 7.1 mg/dL (8.5-10.1); Chloride 104 mmol/L (98-107); Creatinine, Serum 3.05 mg/dL (0.55-1.02); EST Glomerular Filtration Rate 16 mL/min (>60); Est Glom Filt Rate - Afr Amer 20 mL/min (>60); Glucose 90 mg/dL (74-106); Magnesium 2.3 mg/dL (1.6-2.6); Sodium Level 141 mmol/L (136-145)
[2018-12-15 06:21] LABS: Absolute Lymphocyte Count 3.97 X10^3/ul (0.83-4.51); Absolute Neutrophil Count 11.7 X10^3/uL (2.0-7.7); Basophil# 0.05 X10^3/uL; Basophil% 0.3 % (0-1); Eosinophil# 0.15 X10^3/uL; Eosinophils% 0.9 % (0-5); Hematocrit 29.4 % (37-47); Hemoglobin 9.3 g/dl (12.0-15.0); Lymphocyte # 3.97 X10^3/ul (4.0); Lymphocyte % 23.6 % (19-41); Mean Corp Hgb Conc 31.6 g/gl (32-36); Mean Corpuscular Hgb 31.2 pg (27.0-32.0); Mean Corpuscular Volume 98.7 fL (81-99); Mean Platelet Vol. 10.5 fl (6.2-12.0); Monocyte# 0.93 X10^3/uL; Monocyte% 5.5 % (0-10); Neutrophil # 11.65 X10^3/uL (2.7-7.7); Neutrophil % 69.4 % (47-70); Platelet Count 382 K/mm3 (150-450); RBC Distribution Width CV 15.6 % (11.6-14.6); Red Blood Count 2.98 M/mm3 (4.2-5.4); White Blood Count 16.8 K/mm3 (4.4-11.0)
[2018-12-15 06:24] LABS: POSITIVE COUNT NO; POSITIVE DIFFERENTIAL NO; POSITIVE MORPHOLOGY NO
[2018-12-15] MEDS: Ceftriaxone 1 GM/50 ML BAG IV (10:44)
[2018-12-15] MEDS: Fluticasone 0.05% 1 SPRAY NASAL.SRY NASAL (10:45)
[2018-12-15] MEDS: Enoxaparin 30 MG/0.3 ML Syringe SC (10:45)
[2018-12-15] MEDS: amLODIPine 10 MG Tablet PO (10:46)
--- NOTE | 2018-12-15 12:29 | DCINST_ITS ---
- Discharge Diagnoses Current Active Problems: Current Active and Chronic Problems (Last Reviewed 12/14/18 @ 07:17 by Joshua Strickland MD) Urinary tract infection (Acute) Sepsis (Acute) Hypokalemia (Acute) You will use the following diet at home:: Cardiac Your food should be the consistency of: Regular Your liquids should be the consistency of: Regular/Thin Discharge Activity: Return to Normal Activity Call your doctor if your incision/area has: Increased Pain/ Swelling Call your doctor if you observe: Fever of 101 or Higher, Inability to urinate Catheter: Roberts to leg bag Allergies/Adverse Reactions: Allergies pravastatin Allergy (Verified 11/26/18 00:41) Chest tightness sulfamethoxazole [From Bactrim] Allergy (Verified 11/26/18 00:41) Shortness of breath trimethoprim [From Bactrim] Allergy (Verified 11/26/18 00:41) Shortness of breath methylprednisolone Adverse Reaction (Verified 11/26/18 00:41) Pain in joints novacaine Allergy (Uncoded 11/26/18 00:41) Unknown Medications to take at Discharge albuterol sulfate HFA 90 mcg/actuation aerosol inhaler 1 puff INHALATION Q6H PRN 07/25/18 fluticasone 50 mcg/actuation nasal spray,suspension 1 spray INTRANASAL BID g 07/25/18 Amlodipine [Norvasc] 10 mg PO DAILY #30 tablet 11/24/18 Loperamide [Imodium] 2 mg PO Q2H PRN PRN capsule 11/24/18 Sodium Bicarbonate 650 mg PO BID #60 tablet 11/24/18 Acetaminophen [Tylenol Tablet] 1,000 mg PO TID PRN tablet 12/15/18 Ciprofloxacin [Cipro] 250 mg PO BID #14 tablet 12/15/18 Potassium Chloride [K-Dur] 40 meq PO DAILYCM #5 tablet 12/15/18 The following prescriptions were given: Potassium Chloride [K-Dur] 40 meq PO DAILYCM #5 tablet Ciprofloxacin [Cipro] 250 mg PO BID #14 tablet Orders to be completed after discharge: Basic Metabolic Profile (BMP) Time Frame: 1 Week, Location: Laboratory Primary Care Physician: Gerardo García Chi, MD [Primary Care Provider] - Within 2 Weeks Test Results: Test results from this visit will be discussed in further detail at your follow- up appointment, if applicable. Please Follow Up With: Joshua Strickland MD When: 2-4 weeks Proposed Discharge Date: 12/15/18
--- NOTE | 2018-12-15 12:29 | PCM.DC.SUM ---
Discharge Date and Diagnosis - Problem List Patient Problems: Active and Suspected Problems (Last Reviewed 12/14/18 @ 07:17 by Joshua Strickland MD) Urinary tract infection (Acute) Sepsis (Acute) Hypokalemia (Acute) Date of Admission: 12/13/18 Date of Discharge: 12/15/18 - Primary Discharge Diagnosis Active and Suspected Problems (Last Reviewed 12/14/18 @ 07:17 by Joshua Strickland MD) Urinary tract infection (Acute) Sepsis (Acute) Hypokalemia (Acute) - Secondary Discharge Diagnosis Chronic Problems (Last Reviewed 12/14/18 @ 07:17 by Joshua Strickland MD) Cervical cancer (Chronic) Bilateral hydronephrosis (Chronic) worsening. Hyponatremia (Chronic) Hyperlipidemia (Chronic) HTN (hypertension) (Chronic) Mild intermittent asthma (Chronic) Hospital Course and Treatment Imaging Results: Clinical Impression(s) from Imaging Studies Chest X-Ray 12/13/18 21:45 IMPRESSION: Normal x-ray examination of the chest. Electronically Signed: Tanmay Baker DO at 23:06 EST Tel [phone], Service support , Abdomen/Pelvis CT 12/13/18 22:40 IMPRESSION: 1. Persistent bilateral hydronephrosis and ureterectasis perinephric fat stranding unchanged from prior study. 2. Persistently distended urinary bladder without evidence for obstruction. 3. Stable retroperitoneal and left inguinal lymphadenopathy. 4. No evidence of the ileus suspected on the previous study. 5. No interval change when compared to the prior study. Electronically Signed: Ryan Dooley DO at 23:39 EST Tel [phone], Service support , Luz Maria Matthews DO: nephrology Gigi Strickland MD: urology. Operations: None Procedures: - - Cystoscopy left retrograde pyelogram left stent placement, right retrograde pyelogram right stent placement Summary of Care Provided: The patient is a 68 year old F presents with fever. [] 1. UTI Secondary to Klebsiella. Change to Cipro for 7 more days. 2. Sepsis POA 2/2 UTI improved 3. Bilateral hydronephrosis status post Cystoscopy left retrograde pyelogram left stent placement, right retrograde pyelogram right stent placement. It appears to be due to prior radiation exposure. She will need to follow up with urology for stent removal/exchange. She will also continue with morton catheter for now as well. 4. LULY Overall improved. Post obstructive? Follow up BMP as outpt 5. Hypokalemia replace monitor Kdur 40 MeQ daily for 4 more days. Recheck as outpt. 6. Hypomagnesemia resolved with replacement. Patient Problems: Active and Suspected Problems (Last Reviewed 12/14/18 @ 07:17 by Joshua Strickland MD) Urinary tract infection (Acute) Sepsis (Acute) Hypokalemia (Acute) Subjective: feels good. - Physical Exam General: Alert, No apparent distress HEENT: Atraumatic, Normocephalic Oral: Moist Mucosa, No Gingival or Mucosal Lesions/ Ulcerations Neck: No Nodes, Thyroid Normal Size and Texture Lungs: Clear to auscultation, Normal air movement, No rhonchi, No wheeze Cardiovascular: Regular rate, Regular Rhythm, Normal S1, Normal S2, No murmurs Abdomen: Bowel Sounds Present, Soft, Non Tender, Non-Distended, No Hepato-splenomegaly Extremities: No edema, No Calf Tenderness Vital Signs Temp Pulse Resp BP Pulse Ox 36.7 C 92 15 107/64 94 12/15/18 07:37 12/15/18 07:55 12/15/18 07:37 12/15/18 07:37 12/15/18 07:37 Oxygen Delivery Method Room Air Weight: 87.2 kg Body Mass Index (BMI) 29.1 Finger Stick Blood Glucose 92 Intake and Output for Last 24 Hours 12/13/18 12/14/18 12/15/18 23:59 23:59 23:59 Intake Total 4852 / 4852 2610 / 2610 Output Total 2925 / 2925 3050 / 3050 Balance 1927 / 1927 -440 / -440 Microbiology Past 72 Hours 12/13/18 22:12 Urine Culture - Final Urine, Clean Catch Klebsiella pneumoniae sp pneum 12/13/18 21:50 Influenza Types A,B Direct FA (LEVI) - Final Mucosa - Nose Laboratory Tests Past 24 Hrs 12/15/18 12/15/18 05:00 05:00 WBC 16.8 H RBC 2.98 L Hgb 9.3 L Hct 29.4 L MCV 98.7 MCH 31.2 MCHC 31.6 L RDW 15.6 H RDW Differential 56.0 H Plt Count 382 MPV 10.5 Immature Gran % (Auto) 0.300 Neut % (Auto) 69.4 Lymph % (Auto) 23.6 [place] % (Auto) 5.5 Eos % (Auto) 0.9 Baso % (Auto) 0.3 Absolute Neuts (auto) 11.7 H Absolute Lymphs (auto) 3.97 Total Counted Not Reportable Sodium 141 Potassium 3.0 L Chloride 104 Carbon Dioxide 23.0 BUN 20 H Creatinine 3.05 H Estim Creat Clear Calc 18.30 Est GFR (MDRD) Af Amer 20 L Est GFR (MDRD) Non-Af 16 L BUN/Creatinine Ratio 6.6 L Glucose 90 Calcium 7.1 L Phosphorus 4.0 Magnesium 2.3 Albumin 1.7 L Discharge Diet: Low fat/ Low Cholesterol Discharge Activity: Return to Normal Activity Call your doctor if your incision/area has: Increased Pain/ Swelling Call your doctor if you observe: Fever of 101 or Higher, Inability to urinate Catheter: Morton to leg bag Home Medications: Medications to take at Discharge albuterol sulfate HFA 90 mcg/actuation aerosol inhaler 1 puff INHALATION Q6H PRN 07/25/18 fluticasone 50 mcg/actuation nasal spray,suspension 1 spray INTRANASAL BID g 07/25/18 Amlodipine [Norvasc] 10 mg PO DAILY #30 tablet 11/24/18 Loperamide [Imodium] 2 mg PO Q2H PRN PRN capsule 11/24/18 Sodium Bicarbonate 650 mg PO BID #60 tablet 11/24/18 Acetaminophen [Tylenol Tablet] 1,000 mg PO TID PRN tablet 12/15/18 Ciprofloxacin [Cipro] 250 mg PO BID #14 tablet 12/15/18 Potassium Chloride [K-Dur] 40 meq PO DAILYCM #5 tablet 12/15/18 Following Prescrptions Were Given to Patient: Potassium Chloride [K-Dur] 40 meq PO DAILYCM #5 tablet Ciprofloxacin [Cipro] 250 mg PO BID #14 tablet Other Amb Orders: Basic Metabolic Profile (BMP) Time Frame: 1 Week, Location: Laboratory Primary Care Physician: Gerardo García Chi, MD [Primary Care Provider] - Within 2 Weeks Please Follow Up With: Joshua Strickland MD When: 2-4 weeks Disposition: Home Minutes spent on discharge:: 32 Patient Condition:: Good Medical Necessity - Tobacco Use Smoking Status: Never smoker Meaningful Use Info Meaningful Use Diagnoses (Choose all that apply): None applicable Code Visit Inpatient E&M: 96217 Disch Hosp
--- NOTE | 2018-12-15 12:34 | DS.PCM_ITS ---
Discharge Date and Diagnosis - Problem List Patient Problems: Active and Suspected Problems (Last Reviewed 12/14/18 @ 07:17 by Joshua Strickland MD) Urinary tract infection (Acute) Sepsis (Acute) Hypokalemia (Acute) Date of Admission: 12/13/18 Date of Discharge: 12/15/18 - Primary Discharge Diagnosis Active and Suspected Problems (Last Reviewed 12/14/18 @ 07:17 by Joshua Strickland MD) Urinary tract infection (Acute) Sepsis (Acute) Hypokalemia (Acute) - Secondary Discharge Diagnosis Chronic Problems (Last Reviewed 12/14/18 @ 07:17 by Joshua Strickland MD) Cervical cancer (Chronic) Bilateral hydronephrosis (Chronic) worsening. Hyponatremia (Chronic) Hyperlipidemia (Chronic) HTN (hypertension) (Chronic) Mild intermittent asthma (Chronic) Hospital Course and Treatment Imaging Results: Clinical Impression(s) from Imaging Studies Chest X-Ray 12/13/18 21:45 IMPRESSION: Normal x-ray examination of the chest. Electronically Signed: Tanmay Baker DO at 23:06 EST Tel [phone], Service support , Abdomen/Pelvis CT 12/13/18 22:40 IMPRESSION: 1. Persistent bilateral hydronephrosis and ureterectasis perinephric fat stranding unchanged from prior study. 2. Persistently distended urinary bladder without evidence for obstruction. 3. Stable retroperitoneal and left inguinal lymphadenopathy. 4. No evidence of the ileus suspected on the previous study. 5. No interval change when compared to the prior study. Electronically Signed: Ryan Dooley DO at 23:39 EST Tel [phone], Service support , Luz Maria Matthews DO: nephrology Gigi Strickland MD: urology. Operations: None Procedures: - - Cystoscopy left retrograde pyelogram left stent placement, right retrograde pyelogram right stent placement Summary of Care Provided: The patient is a 68 year old F presents with fever. [] 1. UTI Secondary to Klebsiella. Change to Cipro for 7 more days. 2. Sepsis POA 2/2 UTI improved 3. Bilateral hydronephrosis status post Cystoscopy left retrograde pyelogram left stent placement, right retrograde pyelogram right stent placement. It appears to be due to prior radiation exposure. She will need to follow up with urology for stent removal/exchange. She will also continue with morton catheter for now as well. 4. LULY Overall improved. Post obstructive? Follow up BMP as outpt 5. Hypokalemia replace monitor Kdur 40 MeQ daily for 4 more days. Recheck as outpt. 6. Hypomagnesemia resolved with replacement. Patient Problems: Active and Suspected Problems (Last Reviewed 12/14/18 @ 07:17 by Joshua Strickland MD) Urinary tract infection (Acute) Sepsis (Acute) Hypokalemia (Acute) Subjective: feels good. - Physical Exam General: Alert, No apparent distress HEENT: Atraumatic, Normocephalic Oral: Moist Mucosa, No Gingival or Mucosal Lesions/ Ulcerations Neck: No Nodes, Thyroid Normal Size and Texture Lungs: Clear to auscultation, Normal air movement, No rhonchi, No wheeze Cardiovascular: Regular rate, Regular Rhythm, Normal S1, Normal S2, No murmurs Abdomen: Bowel Sounds Present, Soft, Non Tender, Non-Distended, No Hepato- splenomegaly Extremities: No edema, No Calf Tenderness Vital Signs Temp Pulse Resp BP Pulse Ox 36.7 C 92 15 107/64 94 12/15/18 07:37 12/15/18 07:55 12/15/18 07:37 12/15/18 07:37 12/15/18 07:37 Oxygen Delivery Method Room Air Weight: 87.2 kg Body Mass Index (BMI) 29.1 Finger Stick Blood Glucose 92 Intake and Output for Last 24 Hours 12/13/18 12/14/18 12/15/18 23:59 23:59 23:59 Intake Total 4852 / 4852 2610 / 2610 Output Total 2925 / 2925 3050 / 3050 Balance 1927 / 1927 -440 / -440 Microbiology Past 72 Hours 12/13/18 22:12 Urine Culture - Final Urine, Clean Catch Klebsiella pneumoniae sp pneum 12/13/18 21:50 Influenza Types A,B Direct FA (LEVI) - Final Mucosa - Nose Laboratory Tests Past 24 Hrs 12/15/18 12/15/18 05:00 05:00 WBC 16.8 H RBC 2.98 L Hgb 9.3 L Hct 29.4 L MCV 98.7 MCH 31.2 MCHC 31.6 L RDW 15.6 H RDW Differential 56.0 H Plt Count 382 MPV 10.5 Immature Gran % (Auto) 0.300 Neut % (Auto) 69.4 Lymph % (Auto) 23.6 [place] % (Auto) 5.5 Eos % (Auto) 0.9 Baso % (Auto) 0.3 Absolute Neuts (auto) 11.7 H Absolute Lymphs (auto) 3.97 Total Counted Not Reportable Sodium 141 Potassium 3.0 L Chloride 104 Carbon Dioxide 23.0 BUN 20 H Creatinine 3.05 H Estim Creat Clear Calc 18.30 Est GFR (MDRD) Af Amer 20 L Est GFR (MDRD) Non-Af 16 L BUN/Creatinine Ratio 6.6 L Glucose 90 Calcium 7.1 L Phosphorus 4.0 Magnesium 2.3 Albumin 1.7 L Discharge Diet: Low fat/ Low Cholesterol Discharge Activity: Return to Normal Activity Call your doctor if your incision/area has: Increased Pain/ Swelling Call your doctor if you observe: Fever of 101 or Higher, Inability to urinate Catheter: Morton to leg bag Home Medications: Medications to take at Discharge albuterol sulfate HFA 90 mcg/actuation aerosol inhaler 1 puff INHALATION Q6H PRN 07/25/18 fluticasone 50 mcg/actuation nasal spray,suspension 1 spray INTRANASAL BID g 07/25/18 Amlodipine [Norvasc] 10 mg PO DAILY #30 tablet 11/24/18 Loperamide [Imodium] 2 mg PO Q2H PRN PRN capsule 11/24/18 Sodium Bicarbonate 650 mg PO BID #60 tablet 11/24/18 Acetaminophen [Tylenol Tablet] 1,000 mg PO TID PRN tablet 12/15/18 Ciprofloxacin [Cipro] 250 mg PO BID #14 tablet 12/15/18 Potassium Chloride [K-Dur] 40 meq PO DAILYCM #5 tablet 12/15/18 Following Prescrptions Were Given to Patient: Potassium Chloride [K-Dur] 40 meq PO DAILYCM #5 tablet Ciprofloxacin [Cipro] 250 mg PO BID #14 tablet Other Amb Orders: Basic Metabolic Profile (BMP) Time Frame: 1 Week, Location: Laboratory Primary Care Physician: Gerardo García Chi, MD [Primary Care Provider] - Within 2 Weeks Please Follow Up With: Joshua Strickland MD When: 2-4 weeks Disposition: Home Minutes spent on discharge:: 32 Patient Condition:: Good Medical Necessity - Tobacco Use Smoking Status: Never smoker Meaningful Use Info Meaningful Use Diagnoses (Choose all that apply): None applicable Code Visit Inpatient E&M: 88052 Disch Hosp
[2018-12-16] VITALS (10 sets, daily range): BP systolic 128–135; BP diastolic 78–80; PULSE 81–111; RESP 16–18; TEMP 36.6–36.9; O2SAT 94–96
[2018-12-16 06:41] LABS: Absolute Lymphocyte Count 3.91 X10^3/ul (0.83-4.51); Absolute Neutrophil Count 6.8 X10^3/uL (2.0-7.7); Basophil# 0.05 X10^3/uL; Basophil% 0.4 % (0-1); Eosinophil# 0.25 X10^3/uL; Eosinophils% 2.1 % (0-5); Hematocrit 30.9 % (37-47); Hemoglobin 9.7 g/dl (12.0-15.0); Lymphocyte # 3.91 X10^3/ul (4.0); Mean Corp Hgb Conc 31.4 g/gl (32-36); Mean Corpuscular Volume 98.7 fL (81-99); Mean Platelet Vol. 10.3 fl (6.2-12.0); Monocyte# 0.82 X10^3/uL; Monocyte% 6.9 % (0-10); Neutrophil # 6.75 X10^3/uL (2.7-7.7); Neutrophil % 57.1 % (47-70); Platelet Count 391 K/mm3 (150-450); RBC Distribution Width CV 15.7 % (11.6-14.6); Red Blood Count 3.13 M/mm3 (4.2-5.4); White Blood Count 11.8 K/mm3 (4.4-11.0)
[2018-12-16 06:43] LABS: Albumin, Serum 1.9 g/dL (3.2-5.0); Anion Gap 9 (5-15); BUN 16 mg/dL (7-18); BUN/Creat Ratio 6.4 RATIO (10-20); Calcium,Total 7.5 mg/dL (8.5-10.1); Chloride 109 mmol/L (98-107); Creatinine, Serum 2.49 mg/dL (0.55-1.02); EST Glomerular Filtration Rate 21 mL/min (>60); Est Glom Filt Rate - Afr Amer 25 mL/min (>60); Estimated Creatinine Clearance 22.42 ml/min; Glucose 79 mg/dL (74-106); POSITIVE COUNT NO; POSITIVE DIFFERENTIAL NO; POSITIVE MORPHOLOGY NO; Phosphorus 3.9 mg/dL (2.5-4.9); Potassium 2.9 mmol/L (3.5-5.1); Sodium Level 144 mmol/L (136-145)
[2018-12-16] MEDS: amLODIPine 10 MG Tablet PO (08:35)
[2018-12-16] MEDS: Fluticasone 0.05% 1 SPRAY NASAL.SRY NASAL (08:35)
[2018-12-16] MEDS: Ceftriaxone 1 GM/50 ML BAG IV (09:42)
[2018-12-16] MEDS: Acetaminophen 325 MG Tablet 650 MG PO (09:45)
--- NOTE | 2018-12-16 10:27 | PCM.CONS.R ---
Consultation - Renal 12/16/18 PCP/ Referring MD: Requesting physician: [] Primary care physician: Gerardo García MD Reason for Consultation:: LULY - History of Present Illness History of Present Illness: The patient is a 68 year old F admitted on Dec 13 with fever and leukocytosis due to recurrent UTI. She was recently discharged from [facility] November 28 for same event. She had bilateral hydronephrosis and hydroureter on CT of the abdomen last admission as well as this admission. She also had urinary retention with Roberts catheter placed. She underwent ureteral stent placement by urology. She was positive for UTI with Klebsiella pneumonia. Blood cultures have been negative so far. Her creatinine on admission was 3.2-3.3 improved to 2.49 with IV hydration, IV antibiotic therapy and ureteral stent placement with Roberts. Her baseline creatinine is 0.85 in Dec 2017 . She has a history of ureteral strictures following her abdominal surgery in 2014. She was also hypokalemic and potassium has been replaced daily during this admission. - Allergies Allergies: Allergies pravastatin Allergy (Verified 11/26/18 00:41) Chest tightness sulfamethoxazole [From Bactrim] Allergy (Verified 11/26/18 00:41) Shortness of breath trimethoprim [From Bactrim] Allergy (Verified 11/26/18 00:41) Shortness of breath methylprednisolone Adverse Reaction (Verified 11/26/18 00:41) Pain in joints novacaine Allergy (Uncoded 11/26/18 00:41) Unknown - Current Medications Current Medications: Current Medications Acetaminophen (Tylenol) 650 mg PO Q6H PRN PRN PRN Reason: Mild Pain (scale 0-3)/T>100.7 Last Admin: 12/16/18 09:45 Dose: 650 mg Albuterol Sulfate (Ventolin Aerosols) 2.5 mg INHALATION Q4H PRN PRN PRN Reason: SOB &/OR WHEEZING Amlodipine Besylate (Norvasc) 10 mg PO DAILY [facility] Last Admin: 12/16/18 08:35 Dose: 10 mg Bisacodyl (Dulcolax) 10 mg RECTAL DAILY PRN PRN PRN Reason: Constipation Docusate Sodium (Colace) 200 mg PO BID PRN PRN PRN Reason: Constipation Enoxaparin Sodium (Lovenox) 30 mg SC DAILY [facility] Last Admin: 12/16/18 08:35 Dose: Not Given Fluticasone Propionate (Flonase Nasal [place]) 1 spray NASAL BID [facility] Last Admin: 12/16/18 08:35 Dose: 1 spray Hydralazine HCl (Apresoline Iv) 10 mg IV Q4H PRN PRN PRN Reason: SBP>180 mmhg Sodium Chloride () 1,000 mls @ 100 mls/hr IV .Q10H [facility] Last Admin: 12/15/18 22:45 Dose: 100 mls/hr Ceftriaxone Sodium (Rocephin) 1 gm in 50 mls @ 100 mls/hr IV Q24 [facility] Last Admin: 12/16/18 09:42 Dose: 100 mls/hr Loperamide HCl (Imodium) 2 mg PO Q2H PRN PRN PRN Reason: Diarrhea Morphine Sulfate () 1 - 2 mg IV Q4H PRN PRN PRN Reason: SEVERE PAIN (6-10/10) Ondansetron HCl (Zofran) 4 mg IV Q8H PRN PRN PRN Reason: Nausea Last Admin: 12/14/18 21:55 Dose: 4 mg Oxycodone HCl (Oxyir) 5 mg PO Q4H PRN PRN PRN Reason: Moderate Pain (pain scale 4-5) Potassium Chloride (K-Dur) 40 meq PO DAILYCM [facility] Last Admin: 12/16/18 08:35 Dose: 40 meq Potassium Chloride (K-Dur) 40 meq PO X1 ONE Stop: 12/16/18 09:01 Last Admin: 12/16/18 09:42 Dose: 40 meq Sodium Chloride () 5 - 15 ml IV UD PRN PRN Reason: SALINE FLUSH Last Admin: 12/14/18 04:48 Dose: 10 ml - Past Medical History Past Medical History (Chronic Problems): Chronic Problems (Last Reviewed 12/14/18 @ 07:17 by Joshua Strickland MD) Cervical cancer (Chronic) Bilateral hydronephrosis (Chronic) worsening. Hyponatremia (Chronic) Hyperlipidemia (Chronic) HTN (hypertension) (Chronic) Mild intermittent asthma (Chronic) - Past Surgical History Surgical History: hysterectomy, - - Cholecystectomy; and Mass removed from kidney, rt ureteral stent plaement in 2016 - Social History Smoking Status: Never smoker - Family History Paternal Family History: Family History (Last Reviewed 01/03/19 @ 03:49 by Tera Mercer MD) Father CAD (coronary artery disease) History of coronary artery bypass surgery History Items: Heart Disease - at age 34yrs Review of Systems Constitutional: Reports: Weakness. Denies: Anorexia, Chills, Fever Cardiovascular: Denies: Chest Pain Respiratory: Denies: Cough, Shortness of Breath Gastrointestinal: Denies: Abdominal Pain, Diarrhea, Nausea, Vomiting Gynecological: Reports: - - cervial cancer s/p hysterectomy radiation Musculoskeletal: Denies: Joint swelling Skin: Denies: Rash Hematologic/ Lymphatic: Reports: Anemia Patient Problems: Active and Suspected Problems (Last Reviewed 12/14/18 @ 07:17 by Joshua Strickland MD) Urinary tract infection (Acute) Sepsis (Acute) Hypokalemia (Acute) - Physical Exam General: Alert, Oriented x3, Cooperative, No apparent distress HEENT: PERRLA, EOMI Lungs: Clear to auscultation Cardiovascular: Regular rate Abdomen: Bowel Sounds Present, Soft, Non Tender, Non-Distended Extremities: No edema Psych/Mental Status: Alert and oriented to time, place, person, mood and affect Vital Signs Temp Pulse Resp BP Pulse Ox 98.0 F 96 18 129/79 H 94 12/16/18 08:23 12/16/18 08:23 12/16/18 08:23 12/16/18 08:23 12/16/18 08:23 Oxygen Delivery Method Room Air Weight: 87.2 kg Body Mass Index (BMI) 29.1 Finger Stick Blood Glucose 92 Intake and Output for Last 24 Hours 12/14/18 12/15/18 12/16/18 23:59 23:59 23:59 Intake Total 4852 / 4852 3858 / 3858 2163 / 2163 Output Total 2925 / 2925 6125 / 6125 3100 / 3100 Balance 1927 / 1927 -2267 / -2267 -937 / -937 Microbiology Past 72 Hours 12/13/18 21:35 Blood Culture - Preliminary Blood Culture (Wb) - Anticubital Right Klebsiella pneumoniae sp pneum 12/13/18 22:12 Urine Culture - Final Urine, Clean Catch Klebsiella pneumoniae sp pneum 12/13/18 21:50 Influenza Types A,B Direct FA (LEVI) - Final Mucosa - Nose Laboratory Tests Past 24 Hrs 12/16/18 12/16/18 06:10 06:10 WBC 11.8 H RBC 3.13 L Hgb 9.7 L Hct 30.9 L MCV 98.7 MCH 31.0 MCHC 31.4 L RDW 15.7 H RDW Differential 57.0 H Plt Count 391 MPV 10.3 Immature Gran % (Auto) 0.500 Neut % (Auto) 57.1 Lymph % (Auto) 33.0 [place] % (Auto) 6.9 Eos % (Auto) 2.1 Baso % (Auto) 0.4 Absolute Neuts (auto) 6.8 Absolute Lymphs (auto) 3.91 Total Counted Not Reportable Sodium 144 Potassium 2.9 L Chloride 109 H Carbon Dioxide 26.0 Anion Gap 9 BUN 16 Creatinine 2.49 H Estim Creat Clear Calc 22.42 Est GFR (MDRD) Af Amer 25 L Est GFR (MDRD) Non-Af 21 L BUN/Creatinine Ratio 6.4 L Glucose 79 Calcium 7.5 L Phosphorus 3.9 Albumin 1.9 L Clinical Impression(s) from Imaging Studies Chest X-Ray 12/13/18 21:45 IMPRESSION: Normal x-ray examination of the chest. Electronically Signed: Tanmay Baker DO at 23:06 EST Tel [phone], Service support , Abdomen/Pelvis CT 12/13/18 22:40 IMPRESSION: 1. Persistent bilateral hydronephrosis and ureterectasis perinephric fat stranding unchanged from prior study. 2. Persistently distended urinary bladder without evidence for obstruction. 3. Stable retroperitoneal and left inguinal lymphadenopathy. 4. No evidence of the ileus suspected on the previous study. 5. No interval change when compared to the prior study. Electronically Signed: Ryan Dooley DO at 23:39 EST Tel [phone], Service support , Assessment/Plan All Active Problems (Last Reviewed 12/14/18 @ 07:17 by Joshua Strickland MD) Urinary tract infection (Acute) Sepsis (Acute) Acute diarrhea (Acute) Hypokalemia (Acute) High anion gap metabolic acidosis (Resolved) H/O Dunbar's palsy (Resolved) Hx of cervical cancer (Resolved) 1. Acute kidney injury due to obstructive uropathy, urinary retention. Creatinine 3.37 on admit improved to 2.49 today with IV hydration, bilateral ureteral stent placement and Roberts catheter insertion. Baseline creatinine 0.85 from December 2017. Continue to monitor renal function. Follow-up with urology. Will need to clarify if patient to be discharged with Roberts catheter 2. Hypokalemia continue to replace with potassium supplements 3. Hypertension with stable blood pressures. Continue to hold off on losartan. 4. Anemia continue to monitor. YUE globin stable. 5. Leukocytosis with fever and due to Klebsiella pneumonia UTI. Discharged home on Cipro. Leukocytosis improving. Patient afebrile 6. Follow-up with PCP and myself in 1-2 weeks with renal panel prior to follow-up. Follow-up with urology.
--- NOTE | 2018-12-16 10:44 | PCM.DC.SUM ---
Discharge Date and Diagnosis - Problem List Patient Problems: Active and Suspected Problems (Last Reviewed 12/14/18 @ 07:17 by Joshua Strickland MD) Urinary tract infection (Acute) Sepsis (Acute) Hypokalemia (Acute) Date of Admission: 12/13/18 Date of Discharge: 12/16/18 - Primary Discharge Diagnosis Active and Suspected Problems (Last Reviewed 12/14/18 @ 07:17 by Joshua Strickland MD) (1) Acute Complicated Klebsiella Urinary tract infection (2) Acute Klebsiella Bacteremia secondary to #1 (3) Acute Sepsis secondary to #1, #2 (4) Acute BL Hydronephrosis secondary to #1, #2, #3 (5) LULY secondary to #1, #2, #3, #4 (6) Hypokalemia (7) Hypomagnesium (8) Hypertension (9) Hyperlipidemia (10) Mild Intermittent Asthma (11) History of Cervical Cancer - Secondary Discharge Diagnosis Chronic Problems (Last Reviewed 12/14/18 @ 07:17 by Joshua Strickland MD) Cervical cancer (Chronic) Bilateral hydronephrosis (Chronic) worsening. Hyponatremia (Chronic) Hyperlipidemia (Chronic) HTN (hypertension) (Chronic) Mild intermittent asthma (Chronic) Hospital Course and Treatment Dr. Strickland Urology Dr. Matthews Nephrology Operations: - - 12/14/18 Cystoscopy left retrograde pyelogram left stent placement, right retrograde pyelogram right stent placement. Procedures: EKG Summary of Care Provided: The patient is a 68 y/o F w/ PMHx: Asthma, History of Cervical Cancer, HTN who presented to the [facility] ED on 12/13/18 with history of recurrent UTIs most recently discharged on November 28 following a treatment for a Klebsiella urinary tract infection on 7 days of Keflex with return secondary to onset fever noted to have completed the Keflex approximately 2 days prior to presentation with increased urination, urgency, generalized weakness, urethral irritation with recent November 22, 2018 renal/bladder ultrasound with noted bilateral hydronephrosis but no renal colliculi at that time. The abdomen and pelvis was obtained with persistent bilateral hydronephrosis and ureterectasis perinephric fat stranding unchanged from prior study, persistently distended urinary bladder without evidence of obstruction, stable retroperitoneal and left inguinal lymphadenopathy. Patient admitted, maintain IV fluids, continued IV Rocephin initiated in the ED, urology consulted 12/14/18 Cystoscopy left retrograde pyelogram left stent placement, right retrograde pyelogram right stent placement per Dr. Strickland, passing supplementation administered given hypokalemia noted upon admission medium supplementation given as notably low 1.0 upon admission, urine culture resulted with Klebsiella pneumonia with 1 of 2 blood cultures with Klebsiella with repeat blood cultures on 12/14/18 obtained which remained NGTD x > 48 hours. She was initially going to be discharged on 12/15/18 however Bld Cx returned positive, therefore held until repeat cultures negative. Patient upon discharge transitioned to additional 7 day course ciprofloxacin. Patient w/ improvement of renal function following admission, noted admission BUN/Cr 16/3.26-->12/16/18 BUN/Cr 16/2.49, Nephrology followed. Patient discharged to home given negative blood culture repeats with plan continue antibiotic therapy, follow-up with primary care physician within 3-5 days with repeat BMP at that time given hypokalemia with supplementation also given upon discharge, follow-up with urology with Dr. Epstein within 1 week with discontinuation of Morton prior to discharge, follow-up with nephrology within 1 week additionally. DAY OF DISCHARGE PROGRESS NOTE: Subjective: Patient without acute event overnight per self and nursing report. Patient eager for discharge to home. Patient denies fever, chills, nausea, emesis, abdominal pain, chest pain or dyspnea. Patient will be discharged with follow-up with primary care physician within 3-5 days in addition to 1 week follow-up with urology and nephrology. Objective: Physical Examination: General: awake, alert, oriented x 3 and cooperative, seated upright in the bedside chair, NAD. Skin: normal color, turgor, no icterus, cyanosis. HEENT: AT/NC, EOMI, PERRLA, MMM. Lungs: CTA bilaterally, moderate effort, mild decrease BL bases, no rales, ronchi or wheezing; Heart: Regular rate and rhythm; no gallop, rub audible. Abdomen: soft, NTTP, morton in place (discontinuation ordered), ND, normal BS. Extremities: no cyanosis, clubbing, or edema. Neurological: patient awake, alert, oriented x 3; cognitive function appears intact upon questioning,; pupils equally reactive to light and accomodation; cranial nerves II-XII grossly normal, moving all 4 extremities, strength improving, mildly globally decreased. Psychiatric: affect appears normal, no acute evidence of depressive or anxiety feelings. Assessment and Plan: Please see hospital summary above. Patient Problems: Active and Suspected Problems (Last Reviewed 12/14/18 @ 07:17 by Joshua Strickland MD) Urinary tract infection (Acute) Sepsis (Acute) Hypokalemia (Acute) - Physical Exam Vital Signs Temp Pulse Resp BP Pulse Ox 98.0 F 96 18 129/79 H 94 12/16/18 08:23 12/16/18 08:23 12/16/18 08:23 12/16/18 08:23 12/16/18 08:23 Oxygen Delivery Method Room Air Weight: 192 lb 3.889 oz Body Mass Index (BMI) 29.1 Finger Stick Blood Glucose 92 Intake and Output for Last 24 Hours 12/14/18 12/15/18 12/16/18 23:59 23:59 23:59 Intake Total 4852 / 4852 3858 / 3858 2163 / 2163 Output Total 2925 / 2925 6125 / 6125 3100 / 3100 Balance 1927 / 1927 -2267 / -2267 -937 / -937 Microbiology Past 72 Hours 12/13/18 21:35 Blood Culture - Preliminary Blood Culture (Wb) - Anticubital Right Klebsiella pneumoniae sp pneum 12/13/18 22:12 Urine Culture - Final Urine, Clean Catch Klebsiella pneumoniae sp pneum 12/13/18 21:50 Influenza Types A,B Direct FA (LEVI) - Final Mucosa - Nose Laboratory Tests Past 24 Hrs 12/16/18 12/16/18 06:10 06:10 WBC 11.8 H RBC 3.13 L Hgb 9.7 L Hct 30.9 L MCV 98.7 MCH 31.0 MCHC 31.4 L RDW 15.7 H RDW Differential 57.0 H Plt Count 391 MPV 10.3 Immature Gran % (Auto) 0.500 Neut % (Auto) 57.1 Lymph % (Auto) 33.0 [place] % (Auto) 6.9 Eos % (Auto) 2.1 Baso % (Auto) 0.4 Absolute Neuts (auto) 6.8 Absolute Lymphs (auto) 3.91 Total Counted Not Reportable Sodium 144 Potassium 2.9 L Chloride 109 H Carbon Dioxide 26.0 Anion Gap 9 BUN 16 Creatinine 2.49 H Estim Creat Clear Calc 22.42 Est GFR (MDRD) Af Amer 25 L Est GFR (MDRD) Non-Af 21 L BUN/Creatinine Ratio 6.4 L Glucose 79 Calcium 7.5 L Phosphorus 3.9 Albumin 1.9 L Discharge Diet: Low fat/ Low Cholesterol Discharge Activity: Return to Normal Activity Call your doctor if your incision/area has: Increased Pain/ Swelling Call your doctor if you observe: Fever of 101 or Higher, Inability to urinate Catheter: Morton to leg bag Home Medications: Medications to take at Discharge albuterol sulfate HFA 90 mcg/actuation aerosol inhaler 1 puff INHALATION Q6H PRN 07/25/18 fluticasone 50 mcg/actuation nasal spray,suspension 1 spray INTRANASAL BID g 07/25/18 Amlodipine [Norvasc] 10 mg PO DAILY #30 tablet 11/24/18 Loperamide [Imodium] 2 mg PO Q2H PRN PRN capsule 11/24/18 Sodium Bicarbonate 650 mg PO BID #60 tablet 11/24/18 Acetaminophen [Tylenol Tablet] 1,000 mg PO TID PRN tablet 12/15/18 Ciprofloxacin [Cipro] 250 mg PO BID #14 tablet 12/15/18 Potassium Chloride [K-Dur] 40 meq PO DAILY #10 tablet 12/16/18 Following Prescrptions Were Given to Patient: Potassium Chloride [K-Dur] 40 meq PO DAILY #10 tablet Ciprofloxacin [Cipro] 250 mg PO BID #14 tablet Other Amb Orders: Basic Metabolic Profile (BMP) Time Frame: 1 Week, Location: Laboratory Primary Care Physician: Gerardo García Chi, MD [Primary Care Provider] - Please Follow Up With: Joshua Strickland MD When: 2-4 weeks Patient Instructions: Ureteral Stents, Understanding Urinary Tract Infections (UTIs), Understanding Kidney Stones Disposition: Home Medical Necessity - Tobacco Use Smoking Status: Never smoker Meaningful Use Info Meaningful Use Diagnoses (Choose all that apply): None applicable Code Visit Inpatient E&M: 03728 Disch Hosp
--- NOTE | 2018-12-16 10:48 | PHA.DC.COU ---
Pharmacy Services has performed discharge medication counseling for this patient. The patient was counseled on the following discharge medications and changes in medications for homegoing review. The Reason for Use, instructions for use, and potential side effects were reviewed for all new medications. CIPROFLOXACIN POTASSIUM CHLORIDE The patient's questions regarding all of their medications were answered. The patient demonstrated some understanding but would benefit from further education and reinforcement. Home Medications albuterol sulfate HFA 90 mcg/actuation aerosol inhaler 1 puff INHALATION Q6H PRN 07/25/18 fluticasone 50 mcg/actuation nasal spray,suspension 1 spray INTRANASAL BID g 07/25/18 Amlodipine [Norvasc] 10 mg PO DAILY #30 tablet 11/24/18 Loperamide [Imodium] 2 mg PO Q2H PRN PRN capsule 11/24/18 Sodium Bicarbonate 650 mg PO BID #60 tablet 11/24/18 Acetaminophen [Tylenol Tablet] 1,000 mg PO TID PRN tablet 12/15/18 Ciprofloxacin [Cipro] 250 mg PO BID #14 tablet 12/15/18 Potassium Chloride [K-Dur] 40 meq PO DAILY #10 tablet 12/16/18
--- NOTE | 2018-12-16 11:08 | DCINST_ITS ---
- Discharge Diagnoses Current Active Problems: Current Active and Chronic Problems (Last Reviewed 12/14/18 @ 07:17 by Joshua Strickland MD) (1) Acute Complicated Klebsiella Urinary tract infection (2) Acute Klebsiella Bacteremia secondary to #1 (3) Acute Sepsis secondary to #1, #2 (4) Acute BL Hydronephrosis secondary to #1, #2, #3 (5) LULY secondary to #1, #2, #3, #4 (6) Hypokalemia (7) Hypomagnesium (8) Hypertension (9) Hyperlipidemia (10) Mild Intermittent Asthma (11) History of Cervical Cancer You will use the following diet at home:: Cardiac Your food should be the consistency of: Regular Your liquids should be the consistency of: Regular/Thin Discharge Activity: Return to Normal Activity - Avoid driving w/ any narcotic usage. Activity moderate until re-assessment per Urology. May resume sexual activity in: - - May resume once cleared per Urology. Weight Bearing Status: Weight bearing as tolerated Call your doctor if your incision/area has: Increased Pain/ Swelling Call your doctor if you observe: Fever of 101 or Higher, Change in Color, Inability to urinate, Shortness of breath, Dizziness, Fainting spells, Chest pain, Uncontrolled pain Instructions: Understanding Urinary Tract Infections (UTIs), Understanding Kidney Stones, Ureteral Stents Additional Instructions: (1) Follow-up with your PCP within 3-5 days and have repeat basic metabolic panel. (2) Follow-up with Urology, Dr. Strickland in 1 week, if urinary issues with recurrent retention notify his office immediately. (3) Follow-up with Nephrology, Dr. Matthews in 1 week. Allergies/Adverse Reactions: Allergies pravastatin Allergy (Verified 11/26/18 00:41) Chest tightness sulfamethoxazole [From Bactrim] Allergy (Verified 11/26/18 00:41) Shortness of breath trimethoprim [From Bactrim] Allergy (Verified 11/26/18 00:41) Shortness of breath methylprednisolone Adverse Reaction (Verified 11/26/18 00:41) Pain in joints novacaine Allergy (Uncoded 11/26/18 00:41) Unknown Medications to take at Discharge albuterol sulfate HFA 90 mcg/actuation aerosol inhaler 1 puff INHALATION Q6H PRN 07/25/18 fluticasone 50 mcg/actuation nasal spray,suspension 1 spray INTRANASAL BID g 07/25/18 Amlodipine [Norvasc] 10 mg PO DAILY #30 tablet 11/24/18 Loperamide [Imodium] 2 mg PO Q2H PRN PRN capsule 11/24/18 Sodium Bicarbonate 650 mg PO BID #60 tablet 11/24/18 Acetaminophen [Tylenol Tablet] 1,000 mg PO TID PRN tablet 12/15/18 Ciprofloxacin [Cipro] 250 mg PO BID #14 tablet 12/15/18 Potassium Chloride [K-Dur] 40 meq PO DAILY #10 tablet 12/16/18 The following prescriptions were given: Potassium Chloride [K-Dur] 40 meq PO DAILY #10 tablet Ciprofloxacin [Cipro] 250 mg PO BID #14 tablet Orders to be completed after discharge: Basic Metabolic Profile (BMP) Time Frame: 1 Week, Location: Laboratory Primary Care Physician: Gerardo García Chi, MD [Primary Care Provider] - Please follow up with your Primary Care Physician in: Follow-up within 3-5 days to review admission. Have repeat BMP with PCP. Test Results: Test results from this visit will be discussed in further detail at your follow- up appointment, if applicable. Please Follow Up With: Joshua Strickland MD When: 1 week. Please Follow Up With: Luz Maria Matthews DO When: 1 week. Proposed Discharge Date: 12/16/18
--- NOTE | 2018-12-17 14:20 | CASEMGMT ---
ANISH KIRKPATRICK Discharge Follow-Up Phone Call. Emma: 13 Strata: 5 Discharge Date: 12-16-18 Adm Dx: Recurrent UTI Call placed to pt to inquire about how she has been doing since discharged from the hospital. Pt states, I'm doing fine since I've come home. Reviewed follow-up appts with pt and she is aware of all the appts. She states she did have to change the appt with Dr García to 12/20/18 d/t scheduling conflict. She is aware she is to have labwork done as well. States she was able to fruit picker her prescriptions as ordered. Pt stated Dr García had recently started her on Metoprolol but that she did not see it listed on her discharge instructions to continue taking. ANISH KIRKPATRICK noted that Metoprolol was not listed on pt's home medication list on admission. Pt was made aware that this was not recorded on admission that she was taking it previously and so therefore, physician did not have it listed to continue, as he would not have been aware she was taking it at home. ANISH KIRKPATRICK instructed pt to call Dr García's office today and to inquire if she should continue to take the Metoprolol. Pt voiced understanding and states she will call his office today. Pt denies having any other questions or concerns at this time. Rudolph LIMA RN, CM
== END 2018-12-16 17:00 | disposition home or self-care (01) | DRG 854 ==
LOC: ED 22:47 → PCU 22:54
PROVIDERS: Internal Medicine Nephrology; Urology; Admitting Provider Internal Medicine; Emergency Provider Emergency Medicine; Family Provider Family Medicine Geriatric Medicine; PCP Family Medicine Geriatric Medicine; Referring Provider Internal Medicine; Visit Provider Family Medicine
PROC: 0T788DZ Dilation of Bilateral Ureters with Intraluminal Device, Via Natural or Artificial Opening Endoscopic (ICD-10-PCS; CPT 52332; principal; 2018-12-14 12:00)
DX: A41.59 Other Gram-negative sepsis (principal); N39.0 Urinary tract infection, site not specified; N17.9 Acute kidney failure, unspecified; N13.30 Unspecified hydronephrosis; E87.6 Hypokalemia; J45.20 Mild intermittent asthma, uncomplicated; E78.5 Hyperlipidemia, unspecified; B96.1 Klebsiella pneumoniae [K. pneumoniae] as the cause of diseases classified elsewhere; E83.42 Hypomagnesemia; Z85.41 Personal history of malignant neoplasm of cervix uteri; Z87.440 Personal history of urinary (tract) infections; I10 Essential (primary) hypertension; Z90.5 Acquired absence of kidney; Z92.3 Personal history of irradiation; Z90.710 Acquired absence of both cervix and uterus
CPT/HCPCS: 36415; 71045; 74176; 76000; 80048; 80053; 80069; 81001; 83605; 83735; 84100; 85025; 85610; 85730; 87040; 87077; 87086; 87088; 87186; 87804; 93005; 97162; 97166; 97530; 97802; 99285; J7030; J7040; P9612; A4216; C1769; C2617; J2405

== ENCOUNTER → 2018-12-20 11:17 | Outpatient (CLI) | payer MEDICARE, SELFPAY ==
[2018-12-14 10:23] VITALS: BMI 29.1
[2018-12-20 12:39] LABS: Absolute Lymphocyte Count 5.79 X10^3/ul (0.83-4.51); Absolute Neutrophil Count 9.6 X10^3/uL (2.0-7.7); Basophil# 0.06 X10^3/uL; Basophil% 0.4 % (0-1); Eosinophil# 0.19 X10^3/uL; Eosinophils% 1.1 % (0-5); Hematocrit 35.3 % (37-47); Hemoglobin 11.3 g/dl (12.0-15.0); Lymphocyte # 5.79 X10^3/ul (4.0); Lymphocyte % 33.8 % (19-41); Mean Corpuscular Hgb 31.1 pg (27.0-32.0); Mean Corpuscular Volume 97.2 fL (81-99); Mean Platelet Vol. 10.6 fl (6.2-12.0); Monocyte# 1.29 X10^3/uL; Monocyte% 7.5 % (0-10); Neutrophil # 9.55 X10^3/uL (2.7-7.7); Neutrophil % 55.7 % (47-70); POSITIVE COUNT NO; POSITIVE DIFFERENTIAL YES; POSITIVE MORPHOLOGY NO; Platelet Count 638 K/mm3 (150-450); RBC Distribution Width CV 15.2 % (11.6-14.6); Red Blood Count 3.63 M/mm3 (4.2-5.4); White Blood Count 17.1 K/mm3 (4.4-11.0)
[2018-12-20 12:40] LABS: Vitamin D,25 Hydroxy 24.7 ng/mL (29.95-100.01)
[2018-12-20 12:55] LABS: ALB/GLOB Ratio 0.4 RATIO (0.9-2.4); AST(SGOT) 16 U/L (15-37); Alanine Aminotransfer ALT/SGPT 15 U/L (13-56); Albumin, Serum 2.3 g/dL (3.2-5.0); Alkaline Phosphatase 86 U/L (45-117); Anion Gap 14 (5-15); BUN 8 mg/dL (7-18); BUN/Creat Ratio 3.8 RATIO (10-20); Calcium,Total 7.4 mg/dL (8.5-10.1); Chloride 103 mmol/L (98-107); Creatinine, Serum 2.12 mg/dL (0.55-1.02); EST Glomerular Filtration Rate 25 mL/min (>60); Est Glom Filt Rate - Afr Amer 30 mL/min (>60); Glucose 97 mg/dL (74-106); Potassium 3.3 mmol/L (3.5-5.1); Protein, Total 8.3 g/dL (6.4-8.2); Sodium Level 140 mmol/L (136-145)
[2018-12-20 13:08] LABS: Atypical Lymphocyte 1+ %; Platelet Estimate SLT INC (ADEQ); Red Cell Morphology NORM C+C NORMAL (NORM C&C)
== END ==
PROVIDERS: Family Provider Family Medicine Geriatric Medicine; PCP Family Medicine Geriatric Medicine; Visit Provider Family Medicine Geriatric Medicine
DX: I10 Essential (primary) hypertension (principal); E55.9 Vitamin D deficiency, unspecified; N39.0 Urinary tract infection, site not specified; N17.9 Acute kidney failure, unspecified
CPT/HCPCS: 36415; 80053; 82306; 84443; 85025; 87086; 87088

== ENCOUNTER → 2018-12-25 15:20 | Outpatient (CLI) | payer MEDICARE, SELFPAY ==
[2018-12-14 10:23] VITALS: BMI 29.1
[2018-12-25 16:53] LABS: Albumin, Serum 2.5 g/dL (3.2-5.0); BUN 10 mg/dL (7-18); BUN/Creat Ratio 5.6 RATIO (10-20); Calcium,Total 7.6 mg/dL (8.5-10.1); Chloride 103 mmol/L (98-107); EST Glomerular Filtration Rate 30 mL/min (>60); Est Glom Filt Rate - Afr Amer 36 mL/min (>60); Glucose 91 mg/dL (74-106); Phosphorus 3.2 mg/dL (2.5-4.9); Potassium 3.5 mmol/L (3.5-5.1); Sodium Level 140 mmol/L (136-145)
== END ==
PROVIDERS: Family Provider Family Medicine Geriatric Medicine; PCP Family Medicine Geriatric Medicine; Visit Provider Internal Medicine Nephrology
DX: N17.9 Acute kidney failure, unspecified (principal)
CPT/HCPCS: 36415; 80069

== ENCOUNTER → 2019-01-02 09:24 | Outpatient (CLI) | payer MEDICARE, SELFPAY ==
[2018-12-14 10:23] VITALS: BMI 29.1
[2019-01-02 11:01] LABS: Anion Gap 10 (5-15); BUN 12 mg/dL (7-18); BUN/Creat Ratio 6.3 RATIO (10-20); Calcium,Total 8.4 mg/dL (8.5-10.1); Chloride 106 mmol/L (98-107); Creatinine, Serum 1.91 mg/dL (0.55-1.02); EST Glomerular Filtration Rate 28 mL/min (>60); Est Glom Filt Rate - Afr Amer 34 mL/min (>60); Glucose 98 mg/dL (74-106); Potassium 4.7 mmol/L (3.5-5.1); Sodium Level 137 mmol/L (136-145)
== END ==
PROVIDERS: Family Provider Family Medicine Geriatric Medicine; PCP Family Medicine Geriatric Medicine; Referring Provider Urology; Visit Provider Urology
DX: N13.30 Unspecified hydronephrosis (principal)
CPT/HCPCS: 36415; 80048

== ENCOUNTER → 2019-01-15 11:21 | Outpatient (CLI) | payer MEDICARE, SELFPAY ==
[2018-12-14 10:23] VITALS: BMI 29.1
[2019-01-15 13:07] LABS: Absolute Lymphocyte Count 6.94 X10^3/ul (0.83-4.51); Basophil# 0.04 X10^3/uL; Basophil% 0.3 % (0-1); Differential Indicated SCAN CRITERIA MET; Eosinophil# 0.35 X10^3/uL; Eosinophils% 2.5 % (0-5); Hematocrit 38.7 % (37-47); Hemoglobin 12.1 g/dl (12.0-15.0); Lymphocyte # 6.94 X10^3/ul (4.0); Lymphocyte % 49.2 % (19-41); Mean Corp Hgb Conc 31.3 g/gl (32-36); Mean Corpuscular Hgb 30.7 pg (27.0-32.0); Mean Corpuscular Volume 98.2 fL (81-99); Mean Platelet Vol. 10.8 fl (6.2-12.0); Monocyte# 0.77 X10^3/uL; Monocyte% 5.5 % (0-10); Neutrophil # 5.99 X10^3/uL (2.7-7.7); Neutrophil % 42.3 % (47-70); POSITIVE COUNT NO; POSITIVE DIFFERENTIAL YES; POSITIVE MORPHOLOGY NO; Platelet Count 477 K/mm3 (150-450); RBC Distribution Width CV 14.7 % (11.6-14.6); RBC Distribution Width SD 52.8 fl (35.1-43.9); Red Blood Count 3.94 M/mm3 (4.2-5.4); White Blood Count 14.1 K/mm3 (4.4-11.0)
[2019-01-15 13:13] LABS: Anion Gap 9 (5-15); BUN 10 mg/dL (7-18); BUN/Creat Ratio 5.9 RATIO (10-20); Calcium,Total 8.6 mg/dL (8.5-10.1); Chloride 104 mmol/L (98-107); EST Glomerular Filtration Rate 32 mL/min (>60); Est Glom Filt Rate - Afr Amer 39 mL/min (>60); Glucose 96 mg/dL (74-106); Potassium 3.5 mmol/L (3.5-5.1); Sodium Level 139 mmol/L (136-145)
== END ==
PROVIDERS: Family Provider Family Medicine Geriatric Medicine; PCP Family Medicine Geriatric Medicine; Visit Provider Family Medicine Geriatric Medicine
DX: N18.3 Chronic kidney disease, stage 3 (moderate) (principal)
CPT/HCPCS: 36415; 80048; 85025

== ENCOUNTER 2019-01-27 14:56 | Emergency (ER) | payer MEDICARE, SELFPAY ==
[2018-12-14 10:23] VITALS: BMI 29.1
[2019-01-27 14:58] VITALS: BP 140/85; PULSE 86; RESP 15; TEMP 36.4; O2SAT 98; BMI 27.3
[2019-01-27 15:20] LABS: Mucous, Urine 0 SEEN /hpf (<or=2+)
[2019-01-27 15:23] LABS: Color, Urine Yellow (Yellow); Glucose, Dipstick Normal (Normal); Ketone-Dipstick Negative (Negative); Leukocyte Esterase-Dipstick 500 /ul (Negative); Nitrite-Dipstick Negative (Negative); Occult Blood-Urine 250 /ul (Negative); Protein-Dipstick 500 mg/dl (Negative); Urine Bilirubin Dipstick Negative (Negative); Urine Clarity Sl. Cloudy (Clear); Urine Urobilinogen Normal (Normal)
[2019-01-27 15:29] LABS: Bacteria 2+ /hpf (None Seen); Red Blood Cells-Urine 25-50 SEEN /hpf (0-5); Squamous Epithelial Cells - UA 0-5 SEEN /hpf (5-10); White Blood Cells 50-100 SEEN /hpf (0-5)
--- NOTE | 2019-01-27 16:47 | ED.VISSUMM ---
- ER Visit Summary Date of Service: 01/27/19 Chief Complaint: UTI History of Present Illness: The patient is a 68 F with a possible UTI. The patient had a temperature of 100.5 yesterday and then it resolved. Today she felt kind of weak and felt ill. She was concerned she might have a UTI. She has had similar symptoms in the past with UTIs and has developed sepsis. She does have bladder stents which were placed in November by Dr. Strickland. Physical Examination: Afebrile and vital signs unremarkable. Nontoxic and in no acute distress. Alert and oriented. Abdomen soft and nontender. Back nontender. Skin appears normal. Test Results: Urinalysis shows signs of UTI. Cultures pending. Emergency Department Course and Treatment: Patient's urinalysis shows signs of UTI. Culture was sent. She was treated with Keflex. She is nontoxic and currently not septic. Risks and symptoms of sepsis were discussed. The patient will return right away if she is doing worse. Follow-up with Dr. Strickland. Treatment Plan: As above Disposition: Discharge Impression: 1. Acute cystitis This note was generated with [employer] dictation software. It may contain incorrect words, spelling, and punctuation that were not noted in review of the chart prior to signing ED Disposition - Plan for ED Patient: Referrals: Gerardo García Chi, MD [Primary Care Provider] -
[2019-01-27] MEDS: Cephalexin 250 MG Capsule 500 MG PO (16:51)
--- NOTE | 2019-01-27 16:51 | ED.DEP ---
ED Disposition - Plan for ED Patient: Instructions: ED UTI Cystitis Female Prescriptions: Cephalexin [Keflex] 500 mg PO Q6 #40 cap Referrals: Joshua Strickland MD [STAFF PHYSICIAN] - As soon as possible
[2019-01-27 16:55] VITALS: BP 139/88; PULSE 96; RESP 12; O2SAT 100
== END 2019-01-27 17:04 | disposition home or self-care (01) ==
LOC: ED 16:50
PROVIDERS: Emergency Provider Emergency Medicine; Family Provider Family Medicine Geriatric Medicine; PCP Family Medicine Geriatric Medicine
DX: N30.00 Acute cystitis without hematuria (principal); I10 Essential (primary) hypertension; Z87.440 Personal history of urinary (tract) infections; Z79.899 Other long term (current) drug therapy; Z79.51 Long term (current) use of inhaled steroids
CPT/HCPCS: 81001; 87077; 87086; 87088; 87186; 99283

== ENCOUNTER → 2019-02-25 | Outpatient (CLI) | payer MEDICARE, SELFPAY ==
[2019-01-27 14:58] VITALS: BMI 27.3
[2019-02-25 19:38] LABS: Albumin, Serum 2.4 g/dL (3.2-5.0); BUN 14 mg/dL (7-18); BUN/Creat Ratio 6.9 RATIO (10-20); Calcium,Total 7.2 mg/dL (8.5-10.1); Chloride 99 mmol/L (98-107); Creatinine, Serum 2.03 mg/dL (0.55-1.02); EST Glomerular Filtration Rate 26 mL/min (>60); Est Glom Filt Rate - Afr Amer 32 mL/min (>60); Glucose 76 mg/dL (74-106); Magnesium 1.2 mg/dL (1.6-2.6); Phosphorus 3.2 mg/dL (2.5-4.9); Potassium 2.6 mmol/L (3.5-5.1); Sodium Level 135 mmol/L (136-145)
== END | disposition home or self-care (01) ==
LOC: POLAB3 16:50 → PSN 17:20
PROVIDERS: Family Provider Family Medicine Geriatric Medicine; PCP Family Medicine Geriatric Medicine; Referring Provider Internal Medicine Nephrology; Visit Provider Family Medicine Geriatric Medicine
DX: N39.0 Urinary tract infection, site not specified (principal); R50.9 Fever, unspecified; N17.9 Acute kidney failure, unspecified
CPT/HCPCS: 80069; 83735; 87086; 87088; 87633

== ENCOUNTER 2019-02-26 12:15 | Emergency (ER) | payer MEDICARE, SELFPAY ==
[2019-02-26 12:16] VITALS: BP 134/84; PULSE 85; RESP 16; TEMP 36.5; O2SAT 98; BMI 26.6
--- NOTE | 2019-02-26 12:31 | EKG12_ITS ---
Test Reason : ABN LABS Blood Pressure : / mmHG Vent. Rate : 077 BPM Atrial Rate : 077 BPM P-R Int : 144 ms QRS Dur : 092 ms QT Int : 410 ms P-R-T Axes : 042 001 054 degrees QTc Int : 463 ms Normal sinus rhythm Normal ECG Confirmed by TARAH CHRISTIAN, DANTE ([id number]), fashion editor COOPER MARTINEZ ([id number]) on 03/03/2019 4:27:00 PM Referred By: Luz Maria Matthews Confirmed By:DANTE RASCON MD
[2019-02-26 12:57] VITALS: BP 128/87; PULSE 77; RESP 17; O2SAT 97
[2019-02-26] MEDS: Potassium Chloride 10mEq/100mL 10 MEQ/100 ML IV.SOLN. 100 MEQ IV BOLUS (13:03)
[2019-02-26 13:45] LABS: Anion Gap 9 (5-15); BUN 19 mg/dL (7-18); BUN/Creat Ratio 11.4 RATIO (10-20); Calcium,Total 7.5 mg/dL (8.5-10.1); Chloride 104 mmol/L (98-107); Creatinine, Serum 1.66 mg/dL (0.55-1.02); EST Glomerular Filtration Rate 33 mL/min (>60); Est Glom Filt Rate - Afr Amer 40 mL/min (>60); Estimated Creatinine Clearance 33.63 ml/min; Glucose 79 mg/dL (74-106); Potassium 2.7 mmol/L (3.5-5.1); Sodium Level 139 mmol/L (136-145)
--- NOTE | 2019-02-26 13:51 | ED.VISSUMM ---
- ER Visit Summary Date of Service: 02/26/19 Chief Complaint: Low potassium History of Present Illness: The patient is a 68 F with a history of chronic kidney disease. On some routine labs as an outpatient, she had a potassium of 2.6. Her doctor had a hard time getting a hold of her and starting her on treatment, so she was referred to the ED. The patient is not currently experiencing any symptoms. She was recently diagnosed with influenza. Physical Examination: Vital signs are normal. Afebrile. Alert and oriented. No acute distress. Exam unremarkable. Test Results: EKG showed sinus rhythm at a rate of 77. No pathologic changes associated with hyperkalemia. Repeat potassium here was 2.7, BUN 19 and creatinine 1.66. Emergency Department Course and Treatment: I spoke with Dr. Matthews, her batter out. She advise rechecking a BMP. This was stable. She also advised a dose of IV potassium. Patient was already prescribed 20 mEq twice a day. Patient's influenza symptoms have been going on for 4 or 5 days. She is outside the window for Tamiflu and was not treated. Patient was discharged and will follow up with her batter out. Treatment Plan: As above Disposition: Discharge Impression: 1. Hypokalemia 2. Influenza This note was generated with [employer] dictation software. It may contain incorrect words, spelling, and punctuation that were not noted in review of the chart prior to signing ED Disposition - Plan for ED Patient: Referrals: Gerardo García Chi, MD [Primary Care Provider] -
--- NOTE | 2019-02-26 13:55 | ED.DCSUM_ITS ---
- ER Visit Summary Date of Service: 02/26/19 Chief Complaint: Low potassium History of Present Illness: The patient is a 68 F with a history of chronic kidney disease. On some routine labs as an outpatient, she had a potassium of 2.6. Her doctor had a hard time getting a hold of her and starting her on tr eatment, so she was referred to the ED. The patient is not currently experiencing any symptoms. She was recently diagnosed with influenza. Physical Examination: Vital signs are normal. Afebrile. Alert and oriented. No acute distress. Exam unremarkable. Test Results: EKG showed sinus rhythm at a rate of 77. No pathologic changes associated with hyperkalemia. Repeat potassium here was 2.7, BUN 19 and creatinine 1.66. Emergency Department Course and Treatment: I spoke with Dr. Matthews, her prime minister. She advise rechecking a BMP. This was stable. She also advised a dose of IV potassium. Patient was already prescribed 20 mEq twice a day. Patient's influenza symptoms have been going on for 4 or 5 days. She is outside the window for Tamiflu and was not treated. Patient was discharged and will follow up with her prime minister. Treatment Plan: As above Disposition: Discharge Impression: 1. Hypokalemia 2. Influenza This note was generated with [employer] dictation software. It may contain incorrect words, spelling, and punctuation that were not noted in review of the chart prior to signing ED Disposition - Plan for ED Patient: Referrals: Gerardo García Chi, MD [Primary Care Provider] -
--- NOTE | 2019-02-26 13:55 | ED.DEP ---
ED Disposition - Plan for ED Patient: Instructions: ED Potassium Deficiency Referrals: Luz Maria Matthews DO [STAFF PHYSICIAN] -
[2019-02-26 14:25] VITALS: BP 117/74; PULSE 79; RESP 16; O2SAT 98
== END 2019-02-26 14:20 | disposition home or self-care (01) ==
PROVIDERS: Emergency Provider Emergency Medicine; Family Provider Family Medicine Geriatric Medicine; PCP Family Medicine Geriatric Medicine
DX: E87.6 Hypokalemia (principal); J11.1 Influenza due to unidentified influenza virus with other respiratory manifestations; I12.9 Hypertensive chronic kidney disease with stage 1 through stage 4 chronic kidney disease, or unspecified chronic kidney disease; N18.9 Chronic kidney disease, unspecified; Z79.899 Other long term (current) drug therapy
CPT/HCPCS: 80048; 93005; 96360; 99283; J7030; A4216

== ENCOUNTER → 2019-03-07 | Outpatient (CLI) | payer MEDICARE, SELFPAY ==
[2019-02-26 12:16] VITALS: BMI 26.6
[2019-03-07 13:49] LABS: Anion Gap 5 (5-15); BUN 23 mg/dL (7-18); BUN/Creat Ratio 14.6 RATIO (10-20); Calcium,Total 8.2 mg/dL (8.5-10.1); Chloride 109 mmol/L (98-107); Creatinine, Serum 1.58 mg/dL (0.55-1.02); EST Glomerular Filtration Rate 35 mL/min (>60); Est Glom Filt Rate - Afr Amer 42 mL/min (>60); Glucose 85 mg/dL (74-106); Potassium 4.2 mmol/L (3.5-5.1); Sodium Level 140 mmol/L (136-145)
== END | disposition home or self-care (01) ==
LOC: POLAB3 12:48
PROVIDERS: Family Provider Family Medicine Geriatric Medicine; PCP Family Medicine Geriatric Medicine; Visit Provider Family Medicine Geriatric Medicine
DX: N18.3 Chronic kidney disease, stage 3 (moderate) (principal)
CPT/HCPCS: 36415; 80048

== ENCOUNTER 2019-03-31 13:09 | Emergency (ER) | payer MEDICARE, SELFPAY ==
[2019-03-31 13:11] VITALS: BP 145/93; PULSE 91; RESP 18; TEMP 36.6; O2SAT 99; BMI 26.6
--- NOTE | 2019-03-31 13:35 | ED.VISSUMM ---
- ER Visit Summary Date of Service: 03/31/19 Chief Complaint: Right-sided abdominal pain History of Present Illness: The patient is a 68 F complaining of intermittent right upper quadrant abdominal pain. Prior cholecystectomy and hysterectomy. States it is been intermittent diarrhea and loose stools. Intermittent for last week. Associated nausea no vomiting. Some loose stools. No dysuria. Physical Examination: Older female no acute distress. Vital signs are stable and afebrile. HEENT exam normal. Neck nontender no lymphadenopathy. Lungs clear to auscultation bilaterally. Heart regular rhythm no murmur. Abdomen is soft and nontender. Normal bowel sounds no peritoneal signs. Both right upper right lower quadrant unremarkable. Patient is moving all 4 extremities. Neurovascular intact. Back is nontender. No CVA tenderness. Neurologically she is awake and alert with no focal motor deficits. Test Results: Chest x-ray shows no acute abnormality. Read as normal by myself and radiologist. CT flank study done without contrast due to creatinine to be in 2.5 she has bilateral ureteral stents decreasing hydronephrosis from prior no other acute abnormality. Read by the radiologist reviewed by me. CBC is a white count 19,000. Hemoglobin 13 back to 40. Electrolytes unremarkable BUN 21 creatinine 2.5 previously was around 2. Liver enzymes unremarkable lipase normal urinalysis shows 25-50 red cells 25-50 white cells no epithelial cells 1+ bacteria. Urine culture was sent. Emergency Department Course and Treatment: Patient treated with 1 g of IV Rocephin for possible UTI. Treatment Plan: Keflex 500 4 times daily for 10 days. Follow-up with primary care physician Dr. García Disposition: Discharge Impression: Right upper abdominal pain Acute UTI Chronic renal insufficiency This note was generated with [employer] dictation software. It may contain incorrect words, spelling, and punctuation that were not noted in review of the chart prior to signing ED Disposition - Plan for ED Patient: Referrals: Gerardo García Chi, MD [Primary Care Provider] -
[2019-03-31 13:51] LABS: Absolute Lymphocyte Count 3.09 X10^3/ul (0.83-4.51); Absolute Neutrophil Count 14.6 X10^3/uL (2.0-7.7); Basophil# 0.03 X10^3/uL; Basophil% 0.2 % (0-1); Eosinophil# 0.01 X10^3/uL; Eosinophils% 0.1 % (0-5); Hemoglobin 13.4 g/dl (12.0-15.0); Lymphocyte # 3.09 X10^3/ul (4.0); Lymphocyte % 16.3 % (19-41); Mean Corp Hgb Conc 33.5 g/gl (32-36); Mean Corpuscular Hgb 31.6 pg (27.0-32.0); Mean Corpuscular Volume 94.3 fL (81-99); Mean Platelet Vol. 10.2 fl (6.2-12.0); Monocyte# 1.16 X10^3/uL; Monocyte% 6.1 % (0-10); Neutrophil # 14.56 X10^3/uL (2.7-7.7); Neutrophil % 76.7 % (47-70); POSITIVE COUNT NO; POSITIVE DIFFERENTIAL NO; POSITIVE MORPHOLOGY NO; Platelet Count 368 K/mm3 (150-450); RBC Distribution Width SD 50.5 fl (35.1-43.9); Red Blood Count 4.24 M/mm3 (4.2-5.4)
[2019-03-31 14:08] LABS: AST(SGOT) 12 U/L (15-37); Alanine Aminotransfer ALT/SGPT 11 U/L (13-56); Albumin, Serum 2.8 g/dL (3.2-5.0); Alkaline Phosphatase 119 U/L (45-117); Anion Gap 10 (5-15); BUN 21 mg/dL (7-18); BUN/Creat Ratio 8.3 RATIO (10-20); Bilirubin, Direct 0.18 mg/dL (0.00-0.30); Calcium,Total 8.3 mg/dL (8.5-10.1); Chloride 107 mmol/L (98-107); Creatinine, Serum 2.53 mg/dL (0.55-1.02); EST Glomerular Filtration Rate 20 mL/min (>60); Est Glom Filt Rate - Afr Amer 24 mL/min (>60); Estimated Creatinine Clearance 22.06 ml/min; Globulin 5.2 g/dL (2.2-4.2); Glucose 94 mg/dL (74-106); Lipase 67 U/L (73-393); Potassium 3.8 mmol/L (3.5-5.1); Sodium Level 135 mmol/L (136-145)
[2019-03-31 14:14] LABS: Mucous, Urine 0 SEEN /hpf (<or=2+); Squamous Epithelial Cells - UA 0 SEEN /hpf (5-10)
[2019-03-31 14:16] LABS: Color, Urine Yellow (Yellow); Glucose, Dipstick Normal (Normal); Ketone-Dipstick Negative (Negative); Leukocyte Esterase-Dipstick 500 /ul (Negative); Nitrite-Dipstick Negative (Negative); Occult Blood-Urine 250 /ul (Negative); Protein-Dipstick 500 mg/dl (Negative); Urine Bilirubin Dipstick Negative (Negative); Urine Clarity Sl. Cloudy (Clear); Urine Urobilinogen Normal (Normal)
--- NOTE | 2019-03-31 14:20 | RAD_ITS ---
STUDY: X-RAY CHEST REASON FOR EXAM: Female, 68 years old. Chest pain and cough TECHNIQUE: PA and lateral views of the chest. COMPARISON: 12/13/2018 FINDINGS: EKG leads overlie the chest The lungs are clear and expanded. There is no demonstrated pleural abnormality. Normal size heart. Normal mediastinum and wayne. Normal visualized pulmonary arteries. Normal visualized aortic arch and descending thoracic aorta. Normal visualized thoracic spine. Normal visualized ribs, clavicles, and shoulders. There is no demonstrated abnormality of the visualized soft tissue structures of the upper abdomen. RAD/Chest PA and Lateral IMPRESSION: Normal x-ray examination of the chest. Electronically Signed: Aries Owens MD at 14:34 EDT , Service support ,
[2019-03-31 14:28] LABS: Bacteria 1+ /hpf (None Seen); Red Blood Cells-Urine 25-50 SEEN /hpf (0-5); White Blood Cells 25-50 SEEN /hpf (0-5)
[2019-03-31 15:15] VITALS: BP 136/94; PULSE 115; RESP 20; O2SAT 94
--- NOTE | 2019-03-31 16:27 | CT_ITS ---
STUDY: CT ABDOMEN AND PELVIS WITHOUT CONTRAST REASON FOR EXAM: Female, 68 years old. Right flank pain. History of bilateral renal stents. RADIATION DOSAGE (If Supplied By Facility): CTDIvol = ( 13.01 ) mGy, DLP = ( 615.49 ) mGycm TECHNIQUE: Transaxial images were obtained from the dome of the diaphragm to the symphysis pubis without oral contrast, and without intravenous contrast. Sagittal and coronal images were reconstructed. Individualized dose optimization techniques were used for this CT. COMPARISON: December 13, 2018. FINDINGS: The visualized lung bases are unremarkable. The visualized portions of the heart are within normal limits. Normal liver. Normal gallbladder and extrahepatic biliary system. Normal spleen. Normal pancreas. Normal bilateral adrenal glands. The there is cortical thinning of right kidney with dilatation of the renal collecting system. There is a ureteral stent extending from the renal pelvis into the bladder along the course of a markedly distended urethra. Again seen is an exophytic cyst off the lower pole. The left kidney is normal size cortical thickness. There is mild hydronephrosis. There is a ureteral stent extending from the renal pelvis to the urinary bladder along the course of a mildly distended ureter. Normal visualized stomach. Normal small intestine. Normal colon. There is non-visualization of the appendix. Normal abdominal aorta. Normal inferior vena cava. Normal retroperitoneum. Normal urinary bladder. Calcifications versus surgical clips along pelvic sidewall. The vaginal cuff appears normal. Normal abdominal wall. No osseous changes. CT/Abdomen/Pelvis without Cont IMPRESSION: 1. Bilateral ureteral stents. The degree of hydronephrosis has decreased in both kidneys. 2. No other major interval change. Electronically Signed: Ryan Dooley DO at 17:03 EDT Tel [phone], Service support ,
--- NOTE | 2019-03-31 17:26 | ED.DEP ---
ED Disposition - Plan for ED Patient: Disposition: Home or Assisted Living Instructions: ED UTI Cystitis Female Prescriptions: Cephalexin [Keflex] 500 mg PO Q6 10 Days cap Referrals: Gerardo García Chi, MD [Primary Care Provider] - 3-5 Days Additional Instructions: Plenty of fluids and rest. Keflex 1 pill 4 times a day for the next 10 days. Urine culture was sent when that returns we will notify you if the antibiotic does not cover the infection we find. Or Dr. García and follow-up the results. Follow-up with Dr. García next several days Dr. Strickland
[2019-03-31] MEDS: Ceftriaxone 1 GM/50 ML BAG IV (17:38)
--- NOTE | 2019-03-31 18:27 | ED.RN ---
IV DC'ED, CATHETER INTACT, SMALL GAUZE DRESSING PLACED. DISCHARGE INSTRUCTIONS GIVEN TO AND REVIEWED WITH PATIENT, PATIENT DENIES QUESTIONS OR CONCERNS AND VOICES UNDERSTANDING OF DISCHARGE INSTRUCTIONS. PT AMBULATES OUT OF ROOM WITHOUT DIFFICULTY.
[2019-03-31 18:28] VITALS: BP 156/98; PULSE 119; RESP 19; O2SAT 95
--- NOTE | 2019-04-02 09:02 | ED.RN ---
Contacted pt about change in atb related to urine cx report per Valentine. [phone]. New rx called to [facility] pert pt request
== END 2019-03-31 18:28 | disposition home or self-care (01) ==
PROVIDERS: Emergency Provider Emergency Medicine; Family Provider Family Medicine Geriatric Medicine; PCP Family Medicine Geriatric Medicine
DX: R10.11 Right upper quadrant pain (principal); N39.0 Urinary tract infection, site not specified; I12.9 Hypertensive chronic kidney disease with stage 1 through stage 4 chronic kidney disease, or unspecified chronic kidney disease; N18.9 Chronic kidney disease, unspecified; N17.9 Acute kidney failure, unspecified; R19.7 Diarrhea, unspecified; N13.30 Unspecified hydronephrosis; J45.909 Unspecified asthma, uncomplicated; Z87.440 Personal history of urinary (tract) infections; Z85.9 Personal history of malignant neoplasm, unspecified; Z96.0 Presence of urogenital implants; Z90.710 Acquired absence of both cervix and uterus; Z90.49 Acquired absence of other specified parts of digestive tract; Z79.899 Other long term (current) drug therapy
CPT/HCPCS: 71046; 74176; 80048; 80076; 81001; 83690; 85025; 87077; 87086; 87088; 87186; 96365; 99283; J7050; A4216

== ENCOUNTER → 2019-04-03 | Outpatient (CLI) | payer MEDICARE, SELFPAY ==
[2019-03-31 13:11] VITALS: BMI 26.6
[2019-04-03 17:16] LABS: BUN 27 mg/dL (7-18); Glucose 99 mg/dL (74-106)
[2019-04-03 17:17] LABS: Anion Gap 9 (5-15); BUN/Creat Ratio 12.3 RATIO (10-20); Calcium,Total 8.4 mg/dL (8.5-10.1); Chloride 108 mmol/L (98-107); EST Glomerular Filtration Rate 24 mL/min (>60); Est Glom Filt Rate - Afr Amer 29 mL/min (>60); Potassium 3.8 mmol/L (3.5-5.1); Sodium Level 135 mmol/L (136-145)
== END | disposition home or self-care (01) ==
LOC: POLAB3 15:41
PROVIDERS: Family Provider Family Medicine Geriatric Medicine; PCP Family Medicine Geriatric Medicine; Visit Provider Family Medicine Geriatric Medicine
DX: N39.0 Urinary tract infection, site not specified (principal)
CPT/HCPCS: 36415; 80048; 87086; 87088

== ENCOUNTER → 2019-04-17 | Outpatient (CLI) | payer MEDICARE, SELFPAY ==
[2019-03-31 13:11] VITALS: BMI 26.6
[2019-04-17 17:06] LABS: Absolute Lymphocyte Count 4.29 X10^3/ul (0.83-4.51); Absolute Neutrophil Count 9.1 X10^3/uL (2.0-7.7); Basophil# 0.04 X10^3/uL; Basophil% 0.3 % (0-1); Eosinophil# 0.12 X10^3/uL; Eosinophils% 0.8 % (0-5); Hematocrit 37.5 % (37-47); Hemoglobin 12.5 g/dl (12.0-15.0); Lymphocyte # 4.29 X10^3/ul (4.0); Lymphocyte % 29.8 % (19-41); Mean Corp Hgb Conc 33.3 g/gl (32-36); Mean Corpuscular Hgb 31.4 pg (27.0-32.0); Mean Corpuscular Volume 94.2 fL (81-99); Mean Platelet Vol. 10.6 fl (6.2-12.0); Monocyte# 0.81 X10^3/uL; Monocyte% 5.6 % (0-10); Neutrophil # 9.09 X10^3/uL (2.7-7.7); Neutrophil % 63.3 % (47-70); Platelet Count 364 K/mm3 (150-450); RBC Distribution Width CV 15.6 % (11.6-14.6); RBC Distribution Width SD 53.3 fl (35.1-43.9); Red Blood Count 3.98 M/mm3 (4.2-5.4); White Blood Count 14.4 K/mm3 (4.4-11.0)
[2019-04-17 17:07] LABS: POSITIVE COUNT NO; POSITIVE DIFFERENTIAL NO; POSITIVE MORPHOLOGY NO
[2019-04-17 17:34] LABS: Anion Gap 11 (5-15); BUN 33 mg/dL (7-18); BUN/Creat Ratio 12.1 RATIO (10-20); Calcium,Total 8.5 mg/dL (8.5-10.1); Chloride 107 mmol/L (98-107); Creatinine, Serum 2.73 mg/dL (0.55-1.02); EST Glomerular Filtration Rate 19 mL/min (>60); Est Glom Filt Rate - Afr Amer 22 mL/min (>60); Glucose 110 mg/dL (74-106); Potassium 4.6 mmol/L (3.5-5.1); Sodium Level 137 mmol/L (136-145)
== END | disposition home or self-care (01) ==
LOC: POLAB3 16:45
PROVIDERS: Family Provider Family Medicine Geriatric Medicine; PCP Family Medicine Geriatric Medicine; Visit Provider Family Medicine Geriatric Medicine
DX: N17.9 Acute kidney failure, unspecified (principal)
CPT/HCPCS: 36415; 80048; 85025; 87086

== ENCOUNTER → 2019-04-17 | Outpatient (CLI) | payer MEDICARE, SELFPAY ==
[2019-03-31 13:11] VITALS: BMI 26.6
--- NOTE | 2019-04-17 17:30 | CT_ITS ---
STUDY: CT ABDOMEN AND PELVIS WITHOUT CONTRAST REASON FOR EXAM: Female, 68 years old. Hydronephrosis. History of cholecystectomy and hysterectomy for cervical cancer. History of renal stents. Elevated creatinine. RADIATION DOSAGE (If Supplied By Facility): CTDIvol = ( 9.51 ) mGy, DLP = ( 472.60 ) mGycm TECHNIQUE: Transaxial images were obtained from the dome of the diaphragm to the symphysis pubis with oral contrast, and without intravenous contrast. Sagittal and coronal images were reconstructed. Individualized dose optimization techniques were used for this CT. COMPARISON: January 29, 2019. FINDINGS: The visualized lung bases are unremarkable. The visualized portions of the heart are within normal limits. Normal liver. The gallbladder is absent in keeping with history of cholecystectomy. Normal spleen. Normal pancreas. Normal bilateral adrenal glands. A right kidney demonstrates mild hydronephrosis. Cortical thinning. There is an exophytic cyst off the lower pole. There is a right ureteral stent extending from the renal pelvis into the urinary bladder. The left kidney is normal size and cortical thickness. There is mild stranding of the perinephric fat and pararenal fascial planes. There is a ureteral stent extending from the renal pelvis into the urinary bladder. There is contrast within the normal-appearing stomach. Normal small intestine. Normal colon. There is non-visualization of the appendix. There is diffuse atherosclerotic calcification of the abdominal aorta, without a demonstrated aneurysm. Normal inferior vena cava. Normal retroperitoneum. There is mild wall thickening of the urinary bladder without filling defects. Normal vaginal cuff. There is no pelvic lymphadenopathy. No free air or free fluid is seen within the peritoneal cavity. Normal abdominal wall. There are no osseous changes. CT/Abdomen/Pel W ORAL Cont Only IMPRESSION: No major change in findings when compared to the previous study. Electronically Signed: Ryan Dooley DO at 20:03 EDT Tel [phone], Service support ,
== END | disposition home or self-care (01) ==
LOC: CT 17:29
PROVIDERS: Family Provider Family Medicine Geriatric Medicine; PCP Family Medicine Geriatric Medicine; Referring Provider Family Medicine Geriatric Medicine; Visit Provider Family Medicine Geriatric Medicine
DX: N13.30 Unspecified hydronephrosis (principal); N17.9 Acute kidney failure, unspecified
CPT/HCPCS: 36415; 74176; 80048; 85025; 87077; 87086; 87088; 87186

== ENCOUNTER 2019-04-23 06:44 | Day surgery (SDC) | payer MEDICARE, SELFPAY ==
[2019-04-23 07:34] VITALS: BP 137/92; PULSE 84; RESP 18; TEMP 37.1; O2SAT 99; BMI 26.1
[2019-04-23] MEDS: Cefazolin 2 GM in 0.9% Normal Saline 100 ML IV (09:00)
--- NOTE | 2019-04-23 09:34 | DCINST_ITS ---
Discharge Diet: Light diet - advance as tolerated Discharge Activity: Return to Normal Activity Suture Line Care: Avoid Pulling/Pushing, Avoid Pinching/Bending Instructions: Self-Catheterization for Women Additional Instructions: pateint needs to self cath three times per day Allergies/Adverse Reactions: Allergies pravastatin Allergy (Verified 04/18/19 13:10) Chest tightness sulfamethoxazole [From Bactrim] Allergy (Verified 04/18/19 13:10) Shortness of breath trimethoprim [From Bactrim] Allergy (Verified 04/18/19 13:10) Shortness of breath methylprednisolone Adverse Reaction (Verified 04/18/19 13:10) Pain in joints novacaine Allergy (Uncoded 03/31/19 13:09) Unknown Medications to take at Discharge albuterol sulfate HFA 90 mcg/actuation aerosol inhaler 1 puff INHALATION Q6H PRN 07/25/18 Acetaminophen [Tylenol Tablet] 1,000 mg PO TID PRN tablet 12/15/18 Metoprolol Tartrate [Lopressor (beta dustin)] 25 mg PO BID 01/27/19 Potassium Chloride [K-Dur] 20 meq PO BID 03/31/19 Doxycycline Hyclate 100 mg PO BID 04/23/19 Primary Care Physician: Gerardo García Chi, MD [Primary Care Provider] - Test Results: Test results from this visit will be discussed in further detail at your follow- up appointment, if applicable. Please Follow Up With: Joshua Strickland MD When: in 2 weeks, please call to make an appointment.
[2019-04-23 09:39] VITALS: BP 106/69; BP 137/92; PULSE 82; RESP 16; TEMP 36.6; O2SAT 96
--- NOTE | 2019-04-23 09:40 | OP.PCM_ITS ---
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 Description of Surgical Findings:: 68-year-old female who has bilateral ureteral obstruction the distal ureters probably from radiation therapy as she had scarred distal ureters bilaterally managing the situation with stents stents are due to be changed since they are starting to clog up her creatinine is rising she does have a history of chronic renal insufficiency as well she has a neurogenic bladder poor bladder function change plan is to go on self intermittent catheterization recommend she start catheter self 3 times a day a prescription will be given. Patient was taken back to the operating room at the smooth induction of general anesthesia in her urethra vaginal area prepped and draped in usual sterile fashion went into the bladder with a 21 Montserratian rigid cystourethroscope. Grabbed the existing stent pulled out the meatus on the right side. Advanced a wire of the stent. The Pollack catheter over the wire and then performed a retrograde pyelogram and interpreted the fluoroscopic images, she had contrast going to the kidneys filling up nicely. Then over the Pollack catheter advanced a new stent. Pulled the stent in good position there was 7 Montserratian 24 cn stent once a stent was good position I left the string on it but cut the string short so it would not be actually pulled out, position the stent perfectly. I then went over to the left side grabbed the existing stent the left side pulled this out the meatus advance a wire through the stent and then over the wire advanced the Pollack catheter performed a retrograde pyelogram to see contrast in the kidney with mild hydronephrosis then through the Pollack catheter put a new wire up on that left side and over the left side a place a stent it was a 7 Mont[place]erratian by 26 cm stent there was no 24 cm stent available. Once a stent was in good position then I pulled the wire both the stent coiled in good position in the bladder I trimmed the excess string on the stent so they would get pulled out accidentally. Other finding is also she has retention of urine in her bladder I think she needs to be on self intermittent catheterization recommend that she you start catheterizing 3 times a day prescription was given for the patient to do this. She will follow-up in the office in 2 weeks to review and also re- learn self-catheterization Type of Anesthesia:: General Drains: stents bilaterally - Admit VTE Documentation VTE Present on Admission: No VTE Mechan Device Prophylaxis: SCD's
[2019-04-23 09:45] VITALS: BP 107/70; BP 137/92; PULSE 82; RESP 16; O2SAT 97
[2019-04-23 09:50] VITALS: BP 104/72; BP 137/92; PULSE 82; RESP 16; O2SAT 97
[2019-04-23 09:54] VITALS: BP 110/73; BP 137/92; PULSE 82; RESP 16; TEMP 36.6; O2SAT 97
[2019-04-23 10:33] VITALS: BP 137/92
== END 2019-04-23 10:38 | disposition home or self-care (01) ==
LOC: SDC 06:46 → AC 06:47
PROVIDERS: Family Provider Family Medicine Geriatric Medicine; PCP Family Medicine Geriatric Medicine; Referring Provider Urology; Visit Provider Urology
PROC: (CPT 52005; principal; 2019-04-23 08:55)
DX: N13.1 Hydronephrosis with ureteral stricture, not elsewhere classified (principal); I12.9 Hypertensive chronic kidney disease with stage 1 through stage 4 chronic kidney disease, or unspecified chronic kidney disease; N18.3 Chronic kidney disease, stage 3 (moderate); J45.20 Mild intermittent asthma, uncomplicated; Z85.41 Personal history of malignant neoplasm of cervix uteri; Z92.3 Personal history of irradiation; Z79.51 Long term (current) use of inhaled steroids; Z79.899 Other long term (current) drug therapy; Z87.442 Personal history of urinary calculi; Z87.891 Personal history of nicotine dependence
CPT/HCPCS: 00910; 52005; 52332; 76000; J7120; C1874; J2405

== ENCOUNTER → 2019-04-29 | Outpatient (CLI) | payer MEDICARE, SELFPAY ==
[2019-04-23 07:34] VITALS: BMI 26.1
== END | disposition home or self-care (01) ==
LOC: LAB.FUTURE 15:35
PROVIDERS: Family Provider Family Medicine Geriatric Medicine; PCP Family Medicine Geriatric Medicine; Referring Provider Internal Medicine Nephrology; Visit Provider Internal Medicine Nephrology
DX: R30.0 Dysuria (principal)
CPT/HCPCS: 87077; 87086; 87088; 87186

== ENCOUNTER → 2019-05-02 | Outpatient (CLI) | payer MEDICARE, SELFPAY ==
[2019-04-23 07:34] VITALS: BMI 26.1
[2019-05-02 12:58] LABS: Anion Gap 12 (5-15); BUN 38 mg/dL (7-18); BUN/Creat Ratio 17.3 RATIO (10-20); Calcium,Total 8.1 mg/dL (8.5-10.1); Chloride 105 mmol/L (98-107); EST Glomerular Filtration Rate 24 mL/min (>60); Est Glom Filt Rate - Afr Amer 29 mL/min (>60); Glucose 93 mg/dL (74-106); Potassium 3.8 mmol/L (3.5-5.1); Sodium Level 137 mmol/L (136-145)
== END | disposition home or self-care (01) ==
LOC: POLAB3 10:45
PROVIDERS: Family Provider Family Medicine Geriatric Medicine; PCP Family Medicine Geriatric Medicine; Visit Provider Family Medicine Geriatric Medicine
DX: N17.9 Acute kidney failure, unspecified (principal)
CPT/HCPCS: 36415; 80048

== ENCOUNTER → 2019-05-15 | Outpatient (CLI) | payer MEDICARE, SELFPAY ==
[2019-04-23 07:34] VITALS: BMI 26.1
--- NOTE | 2019-05-15 16:25 | RAD_ITS ---
HISTORY: Stents placed 3 weeks ago. Pain off and on since. Comparison study is a CT scan of the abdomen and pelvis from April 17, 2019. Findings: Bilateral ureteric stents remain. The pigtails of the catheter remaining performed, suggesting that they are within the renal collecting systems. The left is more cranial than the right similar to the CT and the left kidney being slightly more cranial than the right. The inferior aspect of the stents appear to be within the urinary bladder. Hyperdense material is present within the pelvis centrally. This coincides to calcifications seen outside of the urinary bladder on the CT. Linear calcifications along the pelvic wall were also present on the previous CT. Bowel gas pattern remains normal. Multilevel degenerative disc disease within lower lumbar spine persist. Spina bifida occulta at the L4 level remains. Spina bifida at L5 remains. Lung bases are clear. Heart is not enlarged. RAD/Abd Inc Decub and/or Erect IMPRESSION: Similar positioning of the ureteric stents on the x-ray compared to the previous CT of April 17, 2019. Pelvic calcifications both solid-appearing and linear along the peritoneal surface as demonstrated on the CT scan aren't similar. No evidence for bowel obstruction. Spina bifida occulta at L4. Spina bifida at L5. at 2211 Reported and signed by: Thompson Mendoza MD Electronically Signed: Thompson Mendoza MD at 22:10 EDT Tel , Service support ,
[2019-05-15 17:29] LABS: Absolute Lymphocyte Count 5.38 X10^3/ul (0.83-4.51); Absolute Neutrophil Count 10.4 X10^3/uL (2.0-7.7); Basophil# 0.06 X10^3/uL; Basophil% 0.3 % (0-1); Eosinophil# 0.18 X10^3/uL; Hemoglobin 11.8 g/dl (12.0-15.0); Lymphocyte # 5.38 X10^3/ul (4.0); Lymphocyte % 31.4 % (19-41); Mean Corp Hgb Conc 32.8 g/gl (32-36); Mean Corpuscular Hgb 31.7 pg (27.0-32.0); Mean Corpuscular Volume 96.8 fL (81-99); Mean Platelet Vol. 10.8 fl (6.2-12.0); Monocyte# 1.12 X10^3/uL; Monocyte% 6.5 % (0-10); Neutrophil # 10.37 X10^3/uL (2.7-7.7); Neutrophil % 60.5 % (47-70); Platelet Count 434 K/mm3 (150-450); RBC Distribution Width CV 15.5 % (11.6-14.6); RBC Distribution Width SD 54.4 fl (35.1-43.9); Red Blood Count 3.72 M/mm3 (4.2-5.4); White Blood Count 17.2 K/mm3 (4.4-11.0)
[2019-05-15 17:31] LABS: Differential Indicated SCAN CRITERIA MET; POSITIVE COUNT NO; POSITIVE DIFFERENTIAL YES; POSITIVE MORPHOLOGY NO
[2019-05-15 17:48] LABS: Differential Comment SCANNED
[2019-05-15 17:54] LABS: ALB/GLOB Ratio 0.4 RATIO (0.9-2.4); AST(SGOT) 13 U/L (15-37); Alanine Aminotransfer ALT/SGPT 12 U/L (13-56); Albumin, Serum 2.6 g/dL (3.2-5.0); Alkaline Phosphatase 103 U/L (45-117); Amylase 41 U/L (25-115); Anion Gap 11 (5-15); BUN 22 mg/dL (7-18); BUN/Creat Ratio 8.9 RATIO (10-20); Calcium,Total 8.4 mg/dL (8.5-10.1); Chloride 106 mmol/L (98-107); Creatinine, Serum 2.47 mg/dL (0.55-1.02); EST Glomerular Filtration Rate 21 mL/min (>60); Est Glom Filt Rate - Afr Amer 25 mL/min (>60); Globulin 6.2 g/dL (2.2-4.2); Glucose 90 mg/dL (74-106); Lipase 144 U/L (73-393); Potassium 4.4 mmol/L (3.5-5.1); Protein, Total 8.8 g/dL (6.4-8.2); Sodium Level 138 mmol/L (136-145); Thyroid Stim Hormone (TSH) 2.46 uIU/mL (0.358-3.74)
== END | disposition home or self-care (01) ==
LOC: POLAB3 15:58 → RAD 16:15
PROVIDERS: Family Provider Family Medicine Geriatric Medicine; PCP Family Medicine Geriatric Medicine; Referring Provider Family Medicine Geriatric Medicine; Visit Provider Family Medicine Geriatric Medicine
DX: R50.9 Fever, unspecified (principal); N39.0 Urinary tract infection, site not specified; R10.9 Unspecified abdominal pain
CPT/HCPCS: 36415; 74019; 80053; 82150; 83690; 84443; 85025; 87040; 87077; 87086; 87088; 87186

== ENCOUNTER → 2019-05-20 | Outpatient (CLI) | payer MEDICARE, SELFPAY ==
[2019-04-23 07:34] VITALS: BMI 26.1
[2019-05-20 17:19] LABS: Anion Gap 12 (5-15); BUN 25 mg/dL (7-18); BUN/Creat Ratio 9.7 RATIO (10-20); Calcium,Total 7.6 mg/dL (8.5-10.1); Chloride 107 mmol/L (98-107); Creatinine, Serum 2.58 mg/dL (0.55-1.02); EST Glomerular Filtration Rate 20 mL/min (>60); Est Glom Filt Rate - Afr Amer 24 mL/min (>60); Glucose 75 mg/dL (74-106); Potassium 4.1 mmol/L (3.5-5.1); Sodium Level 137 mmol/L (136-145)
== END | disposition home or self-care (01) ==
LOC: POLAB3 13:04
PROVIDERS: Family Provider Family Medicine Geriatric Medicine; PCP Family Medicine Geriatric Medicine; Visit Provider Family Medicine Geriatric Medicine
DX: N17.9 Acute kidney failure, unspecified (principal)
CPT/HCPCS: 36415; 80048

== ENCOUNTER 2019-05-30 19:30 | Inpatient (IN) | payer MEDICARE, SELFPAY ==
[2019-05-30 19:32] VITALS: BP 155/85; PULSE 133; RESP 30; TEMP 36.5; O2SAT 100; BMI 24.0
--- NOTE | 2019-05-30 20:25 | RAD_ITS ---
STUDY: X-RAY CHEST REASON FOR EXAM: Female, 68 years old. Fever and weakness. TECHNIQUE: Single AP portable view of the chest. COMPARISON: March 31, 2019 FINDINGS: There is hyperinflation of the lungs consistent with chronic obstructive lung disease (COPD). There is no demonstrated pleural abnormality. Normal size heart. Normal mediastinum and wayne. Normal visualized pulmonary arteries. There is atherosclerotic tortuosity of the aortic arch and descending thoracic aorta. There is demineralization of the osseous structures. Normal visualized ribs, clavicles, and shoulders. There is no demonstrated abnormality of the visualized soft tissue structures of the upper abdomen. RAD/Chest 1 View (Portable) IMPRESSION: COPD without radiographic evidence of acute cardiopulmonary disease. Electronically Signed: Carmen Masterson MD at 20:40 EDT , Service support ,
[2019-05-30] MEDS: 0.9% Normal Saline 1,000 ML 1000 ML IV (20:53)
[2019-05-30] MEDS: Ondansetron 4 MG/2 ML Vial IV (20:56)
[2019-05-30 21:14] LABS: Absolute Lymphocyte Count 3.01 X10^3/ul (0.83-4.51); Absolute Neutrophil Count 17.9 X10^3/uL (2.0-7.7); Basophil# 0.03 X10^3/uL; Basophil% 0.1 % (0-1); Eosinophil# 0.05 X10^3/uL; Eosinophils% 0.2 % (0-5); Hematocrit 30.5 % (37-47); Hemoglobin 10.6 g/dl (12.0-15.0); Lymphocyte # 3.01 X10^3/ul (4.0); Lymphocyte % 13.5 % (19-41); Mean Corp Hgb Conc 34.8 g/gl (32-36); Mean Corpuscular Hgb 31.9 pg (27.0-32.0); Mean Corpuscular Volume 91.9 fL (81-99); Mean Platelet Vol. 10.5 fl (6.2-12.0); Monocyte# 0.96 X10^3/uL; Monocyte% 4.3 % (0-10); Neutrophil # 17.85 X10^3/uL (2.7-7.7); Neutrophil % 80.3 % (47-70); POSITIVE COUNT NO; POSITIVE DIFFERENTIAL NO; POSITIVE MORPHOLOGY NO; Platelet Count 491 K/mm3 (150-450); RBC Distribution Width CV 15.4 % (11.6-14.6); RBC Distribution Width SD 51.8 fl (35.1-43.9); Red Blood Count 3.32 M/mm3 (4.2-5.4); White Blood Count 22.3 K/mm3 (4.4-11.0)
--- NOTE | 2019-05-30 21:20 | NURSING ---
GREEN TOP HEMOLIZED NEEDS REDRAWN
[2019-05-30 21:23] LABS: Lactic Acid 1.1 mmol/L (0.4-2.0)
[2019-05-30 22:00] VITALS: BP 134/83; PULSE 106; RESP 18; O2SAT 100
[2019-05-30 22:02] LABS: ALB/GLOB Ratio 0.2 RATIO (0.9-2.4); AST(SGOT) 55 U/L (15-37); Alanine Aminotransfer ALT/SGPT 24 U/L (13-56); Albumin, Serum 1.6 g/dL (3.2-5.0); Alkaline Phosphatase 102 U/L (45-117); Anion Gap 14 (5-15); BUN 78 mg/dL (7-18); BUN/Creat Ratio 9.5 RATIO (10-20); Calcium,Total 7.1 mg/dL (8.5-10.1); Chloride 104 mmol/L (98-107); Creatinine, Serum 8.23 mg/dL (0.55-1.02); EST Glomerular Filtration Rate 5 mL/min (>60); Est Glom Filt Rate - Afr Amer 6 mL/min (>60); Estimated Creatinine Clearance 6.78 ml/min; Globulin 6.5 g/dL (2.2-4.2); Glucose 96 mg/dL (74-106); Lipase 274 U/L (73-393); Potassium 3.7 mmol/L (3.5-5.1); Protein, Total 8.1 g/dL (6.4-8.2); Sodium Level 131 mmol/L (136-145)
[2019-05-30 22:10] LABS: Mucous, Urine 0 SEEN /hpf (<or=2+); Red Blood Cells-Urine 0 SEEN /hpf (0-5); Squamous Epithelial Cells - UA 0 SEEN /hpf (5-10)
[2019-05-30 22:15] LABS: Color, Urine Yellow (Yellow); Glucose, Dipstick Normal (Normal); Ketone-Dipstick Negative (Negative); Leukocyte Esterase-Dipstick 500 /ul (Negative); Nitrite-Dipstick Negative (Negative); Occult Blood-Urine 250 /ul (Negative); Protein-Dipstick 100 mg/dl (Negative); Specific Gravity, Urine 1.015 (1.002-1.030); Urine Bilirubin Dipstick Negative (Negative); Urine Clarity Turbid (Clear); Urine Urobilinogen Normal (Normal)
[2019-05-30 22:24] LABS: White Blood Cells >100 SEEN /hpf (0-5)
[2019-05-30 22:26] LABS: Bacteria 4+ /hpf (None Seen)
[2019-05-30 22:31] LABS: Yeast-Urine 2+ /hpf (None Seen)
--- NOTE | 2019-05-30 22:39 | ED.VISSUMM ---
- ER Visit Summary Date of Service: 05/30/19 Chief Complaint: [Vomiting and not feeling well] History of Present Illness: The patient is a 68 F [presents with symptoms for at least the last for 5 days. Patient currently being treated for urinary tract infection and has an indwelling Roberts catheter. Patient states that she has had decreased appetite and low-grade fevers at home. Patient feels generally weak. Has had nausea and vomiting off-and-on and intermittent diarrhea starting yesterday. Patient has history of asthma, hypertension, UTI, hyponatremia, hypokalemia, urinary retention.] Physical Examination: [HEENT-PERRLA, EOMI. Cranial nerves II through XII grossly intact. TMs clear. Mucous membranes dry . No adenopathy. Cardiovascular-regular rate and tachycardic. No murmurs auscultated. Lungs-clear to auscultation, chest wall stable without crepitus or subcu emphysema Abdomen-normoactive bowel sounds, soft, nontender, no rebound or rigidity, no peritoneal signs. Extremities-intact ?4, normal range of motion, normal pulses, atraumatic] Test Results: [CBC with the patient awakened at 22.3, hemoglobin 10.6, hematocrit 30, place 191. Chemistries unremarkable. BUN was 78 and creatinine 8.23. CO2 was 13. Urinalysis was positive for greater than 100 WBCs and 500 leukocyte esterase. Patient had +4 bacteria. Lactate was 1.1.] Cultures and urine cultures ordered and pending. Emergency Department Course and Treatment: [Patient initially started empirically on Zosyn 4.5 g IV. Patient was given a liter normal same fluid bolus.] Treatment Plan: [Admit] Disposition: [Admit] Impression: [Renal failure Acute kidney injury Dehydration UTI Sepsis] This note was generated with [id number] dictation software. It may contain incorrect words, spelling, and punctuation that were not noted in review of the chart prior to signing ED Disposition - Plan for ED Patient: Referrals: Gerardo García Chi, MD [Primary Care Provider] -
[2019-05-30 23:00] VITALS: BP 135/77; PULSE 109; RESP 16
--- NOTE | 2019-05-30 23:05 | PCM.HP.STD ---
Problem List (1) Urinary tract infection Status: Acute Qualifiers: Urinary tract infection type: catheter-associated UTI (2) Sepsis Status: Acute Qualifiers: Sepsis type: sepsis due to unspecified organism Qualified Code(s): A41.9 - Sepsis, unspecified organism (3) HTN (hypertension) Status: Chronic Qualifiers: Hypertension type: essential hypertension Qualified Code(s): I10 - Essential (primary) hypertension (4) LULY (acute kidney injury) Status: Acute History of Present Illness Date of Admission: 05/30/19 Chief Complaint: Fever, nausea - 11 days The patient is a 68 year old F with past medical history of cervical cancer status post hysterectomy and radiation therapy, complicated with urethral strictures status post abdominal surgery in 2015, with history of recurrent UTIs, history of ureteral stent for chronic bilateral hydronephrosis and hydroureter. She recently had cystoscopy with bilateral pyelograms and bilateral stents placement done on 04/23/19. Patient was told to also self catheterize about 3 times a day. She has not been compliant with that. She recently followed up with a primary care doctor Dr. García. Her recent urine cultures grew Pseudomonas aeruginosa, most pansensitive. She was prescribed Cipro on 05/20/19 and has 2 more days left. She also had a Roberts catheter placed in Dr. García's office with a leg urine bag. She comes in with complaints of fever, T-max at home was 100.2F, nausea, no vomiting, lower abdominal discomfort, fatigue and feeling unwell ongoing for 11 days. Denied any chest pain or dizziness or palpitations Vitals in the ED showed temperature of 97.7F, heart rate 133, blood pressure 155/85, RR 20, SPO2 100% on room air. Her WBC count was 22.3, hemoglobin 10.6, platelet count 491, sodium 131, potassium 3.7, chloride 104, bicarbonate 13, anion gap is 14, BUN 79, creatinine is 8.23, lactic acid is 1.1. Chest x-ray shows no acute cardiopulmonary process. Past Medical History Past Medical History (Chronic Problems): Chronic Problems (Last Reviewed 12/14/18 @ 07:17 by Joshua Strickland MD) Cervical cancer (Chronic) Bilateral hydronephrosis (Chronic) worsening. 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 Cervical cancer C53.9 History of hysterectomy Z90.710 Allergies pravastatin Allergy (Verified 05/30/19 20:43) Chest tightness sulfamethoxazole [From Bactrim] Allergy (Verified 05/30/19 20:43) Shortness of breath trimethoprim [From Bactrim] Allergy (Verified 05/30/19 20:43) Shortness of breath methylprednisolone Adverse Reaction (Verified 05/30/19 20:43) Pain in joints novacaine Allergy (Uncoded 05/30/19 20:43) Unknown Home Medications: Ambulatory Orders Medication Instructions Recorded albuterol sulfate HFA 90 1 puff INHALATION Q6H PRN 07/25/18 mcg/actuation aerosol inhaler Metoprolol Tartrate [Lopressor 25 mg PO BID 01/27/19 (beta dustin)] Potassium Chloride [K-Dur] 20 meq PO BID 03/31/19 Ciprofloxacin [Cipro] 500 mg PO BID 05/30/19 Surgical History: Surgical History (Last Reviewed 12/14/18 @ 07:18 by Joshua Strickland MD) History of cardiac catheterization Onset Date: ~01/08/18 Z98.890 normal coronaries History of cholecystectomy Z90.49 Surgical History: hysterectomy, - - Cholecystectomy; and Mass removed from kidney, rt ureteral stent plaement in 2016 Psychiatric History: No pertinent psych hx [employer] History: cervical cancer Lives: Spouse/ Significant Other Smoking Status: Never smoker Alcohol: None Drugs: None - *Family History Paternal Family History: Family History (Last Reviewed 11/21/18 @ 03:49 by Tera Mercer MD) Father CAD (coronary artery disease) History of coronary artery bypass surgery History Items: Heart Disease, Hypertension Maternal Family History: Family History (Last Reviewed 11/21/18 @ 03:49 by Tera Mercer MD) Father CAD (coronary artery disease) History of coronary artery bypass surgery History Items: Cancer - lung Review of Systems Constitutional: Reports: Anorexia, Malaise, Weakness, Fatigue. Denies: Chills, Fever, Weight Change Eyes: Denies: Blurred vision, Cataracts, Conjunctivae Inflammation, Double vision, Pain, Redness, Vision Change HEENT: Denies: Difficulty Hearing, Difficulty Swallowing, Head Aches, Hearing Changes, Sinus Congestion, Sinus Drainage Cardiovascular: Denies: Chest Pain, Claudication, Orthopnea, Palpitations Respiratory: Denies: Cough, Hemoptysis, Shortness of breath at rest, Shortness of breath upon exertion, Sputum production Gastrointestinal: Reports: Nausea. Denies: Abdominal Pain, Hematemesis, Hematochezia, Vomiting Genitourinary: Denies: Dysuria, Frequency, Incontinence Gynecological: Denies: Breast symptoms, Vaginal discharge Musculoskeletal: Denies: Joint Pain, Joint stiffness, Joint swelling, Joint Tenderness Skin: Denies: Rash, Wounds Neurological: Denies: Difficulty swallowing, Focal weakness, Numbness, Tingling Psychiatric: Denies: Anxiety, Depression, Homicidal Ideations, Suicidal Ideations Hematologic/ Lymphatic: Denies: Easy Bruising, Easy Bleeding VTE Information - Inpt Only VTE Present on Admission: No VTE Pharm Prophylaxis ordered?: Yes Patient Problems: Active and Suspected Problems (Last Reviewed 12/14/18 @ 07:17 by Joshua Strickland MD) LULY (acute kidney injury) (Acute) - Physical Exam General: Alert, Oriented x3, Cooperative, No apparent distress, - - Appears unwell HEENT: Atraumatic, PERRLA, EOMI, Normocephalic Oral: Moist Mucosa Neck: Supple Lungs: Clear to auscultation, Normal air movement Cardiovascular: Regular rate, Regular Rhythm, Normal S1, Normal S2, No murmurs Abdomen: Bowel Sounds Present, Soft, Non Tender, Non-Distended, No Hepato-splenomegaly Extremities: No edema Skin: No rashes Musculoskeletal: No Tenderness to Palpation of Joints or Extremities Lymphatic: No Cervical, Supraclavicular, or Inguinal Adenopathy Neurological: Cranial nerves II-XII grossly intact, Neuro grossly intact Psych/Mental Status: Normal Affect, Appropriate Vital Signs Temp Pulse Resp BP Pulse Ox 97.7 F L 109 H 16 135/77 H 100 05/30/19 19:32 05/30/19 23:00 05/30/19 23:00 05/30/19 23:00 05/30/19 22:00 Oxygen Delivery Method Room Air Weight: 71.7 kg Body Mass Index (BMI) 24.0 Finger Stick Blood Glucose 92 Laboratory Tests Past 24 Hrs 05/30/19 05/30/19 05/30/19 20:47 20:47 20:47 WBC 22.3 H RBC 3.32 L Hgb 10.6 L Hct 30.5 L MCV 91.9 MCH 31.9 MCHC 34.8 RDW 15.4 H RDW Differential 51.8 H Plt Count 491 H MPV 10.5 Immature Gran % (Auto) 1.600 H Neut % (Auto) 80.3 H Lymph % (Auto) 13.5 L [place] % (Auto) 4.3 Eos % (Auto) 0.2 Baso % (Auto) 0.1 Absolute Neuts (auto) 17.9 H Absolute Lymphs (auto) 3.01 Total Counted Not Reportable Sodium Cancelled Potassium Cancelled Chloride Cancelled Carbon Dioxide Cancelled Anion Gap Cancelled BUN Cancelled Creatinine Cancelled Estim Creat Clear Calc Cancelled Est GFR (MDRD) Af Amer Cancelled Est GFR (MDRD) Non-Af Cancelled BUN/Creatinine Ratio Cancelled Glucose Cancelled Lactic Acid 1.1 Calcium Cancelled Total Bilirubin Cancelled AST Cancelled ALT Cancelled Alkaline Phosphatase Cancelled Troponin I Cancelled Total Protein Cancelled Albumin Cancelled Globulin Cancelled Albumin/Globulin Ratio Cancelled Lipase Cancelled Urine Color Urine Clarity Urine pH Ur Specific [place] Urine Protein Urine Glucose (UA) Urine Ketones Urine Occult Blood Urine Nitrite Urine Bilirubin Urine Urobilinogen Ur Leukocyte Esterase Urine RBC Urine WBC Ur Squamous Epith Cells Urine Bacteria Urine Mucus Urine Yeast 05/30/19 05/30/19 21:29 22:05 WBC RBC Hgb Hct MCV MCH MCHC RDW RDW Differential Plt Count MPV Immature Gran % (Auto) Neut % (Auto) Lymph % (Auto) [place] % (Auto) Eos % (Auto) Baso % (Auto) Absolute Neuts (auto) Absolute Lymphs (auto) Total Counted Sodium 131 L Potassium 3.7 Chloride 104 Carbon Dioxide 13.0 L Anion Gap 14 BUN 78 H Creatinine 8.23 H* Estim Creat Clear Calc 6.78 Est GFR (MDRD) Af Amer 6 L Est GFR (MDRD) Non-Af 5 L BUN/Creatinine Ratio 9.5 L Glucose 96 Lactic Acid Calcium 7.1 L Total Bilirubin 0.30 AST 55 H ALT 24 Alkaline Phosphatase 102 Troponin I < 0.015 Total Protein 8.1 Albumin 1.6 L Globulin 6.5 H Albumin/Globulin Ratio 0.2 L Lipase 274 Urine Color Yellow Urine Clarity Turbid Urine pH 6.0 Ur Specific [place] 1.015 Urine Protein 100 H Urine Glucose (UA) Normal Urine Ketones Negative Urine Occult Blood 250 H Urine Nitrite Negative Urine Bilirubin Negative Urine Urobilinogen Normal Ur Leukocyte Esterase 500 H Urine RBC 0 SEEN Urine WBC >100 SEEN Ur Squamous Epith Cells 0 SEEN Urine Bacteria 4+ Urine Mucus 0 SEEN Urine Yeast 2+ Assessment/Plan All Active Problems (Last Reviewed 12/14/18 @ 07:17 by Joshua Strickland MD) LULY (acute kidney injury) (Acute) Urinary tract infection (Acute) Sepsis (Acute) Acute diarrhea (Acute) Hypokalemia (Acute) High anion gap metabolic acidosis (Resolved) H/O Dunbar's palsy (Resolved) Hx of cervical cancer (Resolved) 68 year old F with past medical history of cervical cancer status post hysterectomy and radiation therapy, complicated with urethral strictures status post abdominal surgery in 2014, with history of recurrent UTIs, history of ureteral stent for chronic bilateral hydronephrosis and hydroureter. She recently had cystoscopy with bilateral pyelograms and bilateral stents placement done on 04/23/19. Patient was told to also self catheterize about 3 times a day. She has not been compliant with that. She was also recently treated with Cipro for Pseudomonas UTI. 1. Sepsis secondary to Pseudomonas UTI, on the last urine culture(05/15/19), admitting WBC count is 22.3, patient has tachycardia Lactic acid is 1.1, started on Zosyn IV, blood and urine cultures taken in the ED Plan: Admit to PCU, monitor on telemetry, continue on IV Zosyn started from the ED, follow blood and urine cultures 2. Acute complicated Pseudomonas UTI, history of recent stents bilaterally, patient self catheterizes inconsistently; this could always be the source of urine tract infection, recently had Roberts catheter placed, continue on antibiotics as per #1 Urology consulted, will leave question of removal of stent or not to urology. 3. Acute kidney injury on CKD stage IV, likely post-renal vs pre-renal from sepsis, history of urethral stricture status post bilateral stent Admitting creatinine is 8.23, creatinine 10 days ago was 2.58 Plan: Continue on IV fluids, Nephrology consulted, Urology consulted. Labs in am 4. Hypertension, on metoprolol, continue same, continue to monitor vitals 5. Anemia of CKD, will monitor, labs in am 6. DVT PPx- Heparin SC Code Visit Inpatient E&M: 51202 Init Hosp L3
[2019-05-31] VITALS (16 sets, daily range): BP systolic 128–163; BP diastolic 69–84; PULSE 67–112; RESP 14–20; TEMP 36.4–37.1; O2SAT 98–99; BMI 24.0
[2019-05-31] MEDS: 0.9% Normal Saline 1,000 ML 200 ML IV ×2 (00:29→04:59)
[2019-05-31] MEDS: 0.9% NaCl Peripheral Flush Adult/Peds IV (00:56)
[2019-05-31] MEDS: Ondansetron 4 MG/2 ML Vial IV (00:56)
[2019-05-31 06:31] LABS: Absolute Lymphocyte Count 3.94 X10^3/ul (0.83-4.51); Absolute Neutrophil Count 14.8 X10^3/uL (2.0-7.7); Basophil# 0.02 X10^3/uL; Basophil% 0.1 % (0-1); Eosinophil# 0.05 X10^3/uL; Eosinophils% 0.3 % (0-5); Lymphocyte # 3.94 X10^3/ul (4.0); Lymphocyte % 19.9 % (19-41); Mean Corp Hgb Conc 34.5 g/gl (32-36); Mean Corpuscular Hgb 31.8 pg (27.0-32.0); Mean Corpuscular Volume 92.4 fL (81-99); Mean Platelet Vol. 10.3 fl (6.2-12.0); Monocyte# 0.67 X10^3/uL; Monocyte% 3.4 % (0-10); Neutrophil % 74.5 % (47-70); Platelet Count 458 K/mm3 (150-450); RBC Distribution Width CV 15.6 % (11.6-14.6); RBC Distribution Width SD 52.6 fl (35.1-43.9); Red Blood Count 3.14 M/mm3 (4.2-5.4); White Blood Count 19.8 K/mm3 (4.4-11.0)
[2019-05-31 06:43] LABS: POSITIVE COUNT NO; POSITIVE DIFFERENTIAL NO; POSITIVE MORPHOLOGY YES
[2019-05-31 06:44] LABS: Differential Indicated SCAN CRITERIA MET
[2019-05-31 06:46] LABS: Albumin, Serum 1.6 g/dL (3.2-5.0); BUN 82 mg/dL (7-18); BUN/Creat Ratio 10.2 RATIO (10-20); Chloride 108 mmol/L (98-107); Creatinine, Serum 8.01 mg/dL (0.55-1.02); EST Glomerular Filtration Rate 5 mL/min (>60); Est Glom Filt Rate - Afr Amer 6 mL/min (>60); Estimated Creatinine Clearance 6.97 ml/min; Glucose 95 mg/dL (74-106); Phosphorus 6.3 mg/dL (2.5-4.9); Potassium 3.7 mmol/L (3.5-5.1); Sodium Level 135 mmol/L (136-145)
[2019-05-31 07:16] LABS: Differential Comment SCANNED
[2019-05-31] MEDS: Metoprolol Tartrate 25 MG Tablet PO ×2 (07:57→21:52)
--- NOTE | 2019-05-31 08:00 | US_ITS ---
STUDY: RENAL ULTRASOUND - COMPLETE REASON FOR EXAM: Female, 68 years old. Acute renal failure. TECHNIQUE: Ultrasound evaluation of the kidneys was performed with real-time and static alejo-scale imaging. COMPARISON: CT scan 04/17/2019. FINDINGS: RIGHT KIDNEY: Normal location of the right kidney, which is normal in size. The right kidney measures 11.0 x 6.2 x 5.4 cm. There is a normal cortex of the right kidney. The renal cortex measures 1.3 cm. Numerous anechoic structures seen throughout the right kidney, probable combination of renal cysts as much as 3.9 cm, and hydronephrosis with caliectasis. At least mild hydronephrosis. No definite stones. DISTAL RIGHT URETER: There is non-visualization of the distal right ureter. There is no demonstrated right ureterovesical junction calculus. There is a visualized right ureteral jet. LEFT KIDNEY: Normal location of the left kidney, which is normal in size. The left kidney measures 11.7 x 5.9 x 6.3 cm. There is a normal cortex of the left kidney. The renal cortex measures 1.2 cm. Numerous cystic structures throughout the left kidney most consistent with cysts as much as 1.9 cm. There may be distended calyces also. There is at least mild hydronephrosis. DISTAL LEFT URETER: There is non-visualization of the distal left ureter. There is no demonstrated left ureterovesical junction calculus. There is a visualized left ureteral jet. AORTA: There is no elongation or tortuosity of the abdominal aorta. BLADDER: There is a Roberts catheter emptying the bladder. US/Kidney and Bladder IMPRESSION: Numerous bilateral renal cysts. Bilateral hydronephrosis. Possible dilated calyces bilaterally-these cannot be differentiated from cysts.. Electronically Signed: Ramirez Jerez MD at 16:44 EDT , Service support ,
--- NOTE | 2019-05-31 09:46 | PCM.CONS.R ---
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 Her baseline creatinine was 2.58 on May 20. She is admitted with 8 days of poor appetite, upset stomach with nausea and vomiting. She had noticed drop in urine output the past 3 days. She complains of diarrhea without hematochezia or melena. Denied any tremors. She has not felt well for a while but wanted to wait until Sunday to come in. Family at bedside who encouraged her to come in sooner. Creatinine was elevated at 8.2 upon admission with profound metabolic acidosis. She denies any syncope, chest pain or falls at home. She has continued on her lisinopril for hypertension despite discussing discontinuing or holding her lisinopril dose during her last office appointment with me back in April. - Allergies Allergies: Allergies pravastatin Allergy (Verified 05/30/19 20:43) Chest tightness sulfamethoxazole [From Bactrim] Allergy (Verified 05/30/19 20:43) Shortness of breath trimethoprim [From Bactrim] Allergy (Verified 05/30/19 20:43) Shortness of breath methylprednisolone Adverse Reaction (Verified 05/30/19 20:43) Pain in joints novacaine Allergy (Uncoded 05/30/19 20:43) Unknown - Current Medications Current Medications: Current Medications Acetaminophen (Tylenol) 650 mg PO Q6H PRN PRN PRN Reason: Mild pain 1-3/Temp > 100.7 F Heparin Sodium (Porcine) (Heparin Na) 5,000 unit SC Q8 [facility] Last Admin: 05/31/19 01:46 Dose: Not Given Documented by: Piperacillin Sod/Tazobactam (Sod 3.375 gm/ Sodium Chloride) 50 mls @ 12.5 mls/hr IV Q12 [facility] Last Admin: 05/31/19 09:18 Dose: 12.5 mls/hr Documented by: Sodium Bicarbonate 150 meq/ (Dextrose) 1,150 mls @ 100 mls/hr IV .[id number] [facility] Last Admin: 05/31/19 09:18 Dose: 100 mls/hr Documented by: Sodium Chloride () 1,000 mls @ 50 mls/hr IV .Q20H [facility] Last Admin: 05/31/19 09:32 Dose: Not Given Documented by: Metoprolol Tartrate (Lopressor (Beta Neyda)) 25 mg PO BID [facility] Last Admin: 05/31/19 07:57 Dose: 25 mg Documented by: Nutritional Formula (Lactose Free) (Ensure Enlive) 120 ml PO 4X/DAY [facility] Last Admin: 05/31/19 07:50 Dose: Not Given Documented by: Ondansetron HCl (Zofran) 4 mg IV Q8H PRN PRN PRN Reason: NAUSEA/VOMITING Last Admin: 05/31/19 00:56 Dose: 4 mg Documented by: Sodium Chloride () 10 - 40 ml IV UD PRN PRN Reason: SALINE FLUSH Last Admin: 05/31/19 00:56 Dose: 10 ml Documented by: - Past Medical History Past Medical History (Chronic Problems): Chronic Problems (Last Reviewed 12/14/18 @ 07:17 by Joshua Strickland MD) Cervical cancer (Chronic) Bilateral hydronephrosis (Chronic) worsening. Hyponatremia (Chronic) Hyperlipidemia (Chronic) HTN (hypertension) (Chronic) Mild intermittent asthma (Chronic) - Past Surgical History Surgical History: hysterectomy, - - Cholecystectomy; and Mass removed from kidney, rt ureteral stent plaement in 2016 - Social History Smoking Status: Never smoker Alcohol: None Drugs: None - Family History Paternal Family History: Family History (Last Reviewed 11/21/18 @ 03:49 by Tera Mercer MD) Father CAD (coronary artery disease) History of coronary artery bypass surgery History Items: Heart Disease, Hypertension Maternal Family History: Family History (Last Reviewed 11/21/18 @ 03:49 by Tera Mercer MD) Father CAD (coronary artery disease) History of coronary artery bypass surgery History Items: Cancer - lung Review of Systems Constitutional: Reports: Anorexia, Malaise, Weakness, Fatigue. Denies: Chills, Fever HEENT: Denies: Head Aches, Visual Changes Cardiovascular: Denies: Chest Pain, Edema Respiratory: Denies: Cough, Shortness of Breath, Shortness of breath upon exertion Gastrointestinal: Reports: Abdominal Pain - suprapubic, Diarrhea - x2, Nausea, Vomiting Genitourinary: Reports: Dysuria - recently treated for UTI. Denies: Frequency Skin: Denies: Rash Neurological: Denies: Balance problems, Tremor, Seizures Psychiatric: Reports: Anxiety, Depression Hematologic/ Lymphatic: Reports: Anemia Patient Problems: Active and Suspected Problems (Last Reviewed 12/14/18 @ 07:17 by Joshua Strickland MD) LULY (acute kidney injury) (Acute) - Physical Exam General: Alert, Oriented x3, Cooperative, No apparent distress Oral: Dry Mucosa Neck: Supple Lungs: Clear to auscultation Cardiovascular: Regular rate, No rub noted Abdomen: Bowel Sounds Present, Soft, Non Tender, Non-Distended Extremities: No edema Skin: No rashes Psych/Mental Status: Normal Affect, Alert and oriented to time, place, person, mood and affect Vital Signs Temp Pulse Resp BP Pulse Ox 98.3 F 88 16 143/73 H 99 05/31/19 04:57 05/31/19 07:57 05/31/19 04:57 05/31/19 04:57 05/31/19 04:57 Oxygen Delivery Method Room Air Weight: 71.7 kg Body Mass Index (BMI) 24.0 Finger Stick Blood Glucose 92 Intake and Output for Last 24 Hours 05/29/19 05/30/19 05/31/19 23:59 23:59 23:59 Intake Total 1160 / 1160 Output Total 150 / 150 Balance 1010 / 1010 Laboratory Tests Past 24 Hrs 05/30/19 05/30/19 05/30/19 20:47 20:47 20:47 WBC 22.3 H RBC 3.32 L Hgb 10.6 L Hct 30.5 L MCV 91.9 MCH 31.9 MCHC 34.8 RDW 15.4 H RDW Differential 51.8 H Plt Count 491 H MPV 10.5 Immature Gran % (Auto) 1.600 H Neut % (Auto) 80.3 H Lymph % (Auto) 13.5 L [place] % (Auto) 4.3 Eos % (Auto) 0.2 Baso % (Auto) 0.1 Absolute Neuts (auto) 17.9 H Absolute Lymphs (auto) 3.01 Total Counted Not Reportable Differential Comment Sodium Cancelled Potassium Cancelled Chloride Cancelled Carbon Dioxide Cancelled Anion Gap Cancelled BUN Cancelled Creatinine Cancelled Estim Creat Clear Calc Cancelled Est GFR (MDRD) Af Amer Cancelled Est GFR (MDRD) Non-Af Cancelled BUN/Creatinine Ratio Cancelled Glucose Cancelled Lactic Acid 1.1 Calcium Cancelled Phosphorus Total Bilirubin Cancelled AST Cancelled ALT Cancelled Alkaline Phosphatase Cancelled Troponin I Cancelled Total Protein Cancelled Albumin Cancelled Globulin Cancelled Albumin/Globulin Ratio Cancelled Lipase Cancelled Urine Color Urine Clarity Urine pH Ur Specific [place] Urine Protein Urine Glucose (UA) Urine Ketones Urine Occult Blood Urine Nitrite Urine Bilirubin Urine Urobilinogen Ur Leukocyte Esterase Urine RBC Urine WBC Ur Squamous Epith Cells Urine Bacteria Urine Mucus Urine Yeast 05/30/19 05/30/19 05/31/19 21:29 22:05 05:30 WBC 19.8 H RBC 3.14 L Hgb 10.0 L Hct 29.0 L MCV 92.4 MCH 31.8 MCHC 34.5 RDW 15.6 H RDW Differential 52.6 H Plt Count 458 H MPV 10.3 Immature Gran % (Auto) 1.800 H Neut % (Auto) 74.5 H Lymph % (Auto) 19.9 [place] % (Auto) 3.4 Eos % (Auto) 0.3 Baso % (Auto) 0.1 Absolute Neuts (auto) 14.8 H Absolute Lymphs (auto) 3.94 Total Counted Not Reportable Differential Comment SCANNED Sodium 131 L Potassium 3.7 Chloride 104 Carbon Dioxide 13.0 L Anion Gap 14 BUN 78 H Creatinine 8.23 H* Estim Creat Clear Calc 6.78 Est GFR (MDRD) Af Amer 6 L Est GFR (MDRD) Non-Af 5 L BUN/Creatinine Ratio 9.5 L Glucose 96 Lactic Acid Calcium 7.1 L Phosphorus Total Bilirubin 0.30 AST 55 H ALT 24 Alkaline Phosphatase 102 Troponin I < 0.015 Total Protein 8.1 Albumin 1.6 L Globulin 6.5 H Albumin/Globulin Ratio 0.2 L Lipase 274 Urine Color Yellow Urine Clarity Turbid Urine pH 6.0 Ur Specific [place] 1.015 Urine Protein 100 H Urine Glucose (UA) Normal Urine Ketones Negative Urine Occult Blood 250 H Urine Nitrite Negative Urine Bilirubin Negative Urine Urobilinogen Normal Ur Leukocyte Esterase 500 H Urine RBC 0 SEEN Urine WBC >100 SEEN Ur Squamous Epith Cells 0 SEEN Urine Bacteria 4+ Urine Mucus 0 SEEN Urine Yeast 2+ 05/31/19 05:30 WBC RBC Hgb Hct MCV MCH MCHC RDW RDW Differential Plt Count MPV Immature Gran % (Auto) Neut % (Auto) Lymph % (Auto) [place] % (Auto) Eos % (Auto) Baso % (Auto) Absolute Neuts (auto) Absolute Lymphs (auto) Total Counted Differential Comment Sodium 135 L Potassium 3.7 Chloride 108 H Carbon Dioxide 11.0 L Anion Gap BUN 82 H Creatinine 8.01 H* Estim Creat Clear Calc 6.97 Est GFR (MDRD) Af Amer 6 L Est GFR (MDRD) Non-Af 5 L BUN/Creatinine Ratio 10.2 Glucose 95 Lactic Acid Calcium 7.0 L Phosphorus 6.3 H Total Bilirubin AST ALT Alkaline Phosphatase Troponin I Total Protein Albumin 1.6 L Globulin Albumin/Globulin Ratio Lipase Urine Color Urine Clarity Urine pH Ur Specific [place] Urine Protein Urine Glucose (UA) Urine Ketones Urine Occult Blood Urine Nitrite Urine Bilirubin Urine Urobilinogen Ur Leukocyte Esterase Urine RBC Urine WBC Ur Squamous Epith Cells Urine Bacteria Urine Mucus Urine Yeast Clinical Impression(s) from Imaging Studies Chest X-Ray 05/30/19 20:25 IMPRESSION: COPD without radiographic evidence of acute cardiopulmonary disease. Electronically Signed: Carmen Masterson MD at 20:40 EDT , Service support , Assessment/Plan All Active Problems (Last Reviewed 12/14/18 @ 07:17 by Joshua Strickland MD) LULY (acute kidney injury) (Acute) Urinary tract infection (Acute) Sepsis (Acute) Acute diarrhea (Acute) Hypokalemia (Acute) High anion gap metabolic acidosis (Resolved) H/O Dunbar's palsy (Resolved) Hx of cervical cancer (Resolved) 1. Acute kidney injury on CKD stage IV. Creatinine elevated at 8.2 with uremic symptoms of nausea vomiting anorexia. Discussed initiating hemodialysis today with a temporary dialysis catheter. Her urine output is very poor. She has cloudy urine with elevated white count and low-grade fever. Discussed the risk of bleeding drop in blood pressure with dialysis risk of infection with a dialysis catheter. 2. History of obstructive uropathy status post bilateral ureteral stents. Consult urology. 3. Leukocytosis with fever pancultured 4. Diarrhea check her stool for C. difficile. 5. Metabolic acidosis due to renal failure, possibly from GI loss as well. Correct with dialysis in the meantime start sodium bicarb solution. 6. HTN hold ACEI/ARB. No need for diuretics. Continue with iv hydration. Stop bicarb drip once dialysis initiated.
--- NOTE | 2019-05-31 10:46 | PCM.PN.HOSP ---
Patient Problems: Active and Suspected Problems (Last Reviewed 12/14/18 @ 07:17 by Joshua Strickland MD) LULY (acute kidney injury) (Acute) Subjective: Patient seen and examined. She was admitted with complaints of fever and chills for about 11 days prior to admission with associated nausea. Patient has a remote history of cervical cancer status post hysterectomy radiation which was complicated by urethral strictures. She has a history of recurrent UTIs and has a history of ureteral stent for chronic bilateral hydronephrosis and hydroureter. She recently had cystoscopy with bilateral pyelograms and bilateral stent placement on 04/23/2019. She had been told to be self catheterizing at home about 3 times a day but has not been compliant and says she had a Roberts catheter put in a few days ago by PCP. She recently saw her PCP in the office was prescribed ciprofloxacin on 05/20/2019 for UTI due to pseudomonas aeruginosa which grew in her urine cultures. However symptoms did not resolve and she was admitted with a complaint of fever and general feeling of unwellness. She has been managed for sepsis due to UTI and LULY on CKD Patient seen and examined. She feels much better. SHe denies any fever, chills, palpitations, dizziness, chest pain, diarrhea or vomiting. Review of systems is otherwise negative. Labs and vitals reviewed. Nephrology and urology on board Vitals/I&O's: Vital Signs Temp Pulse Resp BP Pulse Ox 98.4 F 88 16 135/78 H 99 05/31/19 09:30 05/31/19 09:30 05/31/19 09:30 05/31/19 09:30 05/31/19 09:30 Oxygen Delivery Method Room Air Weight: 158 lb 1.143 oz Body Mass Index (BMI) 24.0 Finger Stick Blood Glucose 92 Intake and Output for Last 24 Hours 05/29/19 05/30/19 05/31/19 23:59 23:59 23:59 Intake Total 1160 / 1160 Output Total 150 / 150 Balance 1010 / 1010 General: Alert, Oriented x3, Cooperative, No apparent distress HEENT: Atraumatic, PERRLA, EOMI, Normocephalic Oral: Moist Mucosa Neck: Supple, No JVD, Negative Carotid Bruits Lungs: Clear to auscultation, Normal air movement, No rhonchi, No wheeze, No rales Cardiovascular: Regular rate, Regular Rhythm, Normal S1, Normal S2, No murmurs Abdomen: Bowel Sounds Present, Soft, Non Tender, Non-Distended, No Hepato-splenomegaly, - - urethral Roberts Catheter contains very cloudy urine Extremities: No edema, Capillary Refill Less than 3 Seconds Skin: No rashes, No breakdown Musculoskeletal: No Tenderness to Palpation of Joints or Extremities Lymphatic: No Cervical, Supraclavicular, or Inguinal Adenopathy Neurological: Cranial nerves II-XII grossly intact, Neuro grossly intact, Motor Exam 5/5 strength throughout Psych/Mental Status: Normal Affect, Appropriate, Alert and oriented to time, place, person, mood and affect Laboratory Results 05/30/19 20:47: WBC 22.3 H, RBC 3.32 L, Hgb 10.6 L, Hct 30.5 L, MCV 91.9, MCH 31.9, MCHC 34.8, RDW 15.4 H, RDW Differential 51.8 H, Plt Count 491 H, MPV 10.5, Immature Gran % (Auto) 1.600 H, Neut % (Auto) 80.3 H, Lymph % (Auto) 13.5 L, Butts % (Auto) 4.3, Eos % (Auto) 0.2, Baso % (Auto) 0.1, Absolute Neuts (auto) 17.9 H, Absolute Lymphs (auto) 3.01, Total Counted Not Reportable 05/30/19 20:47: Sodium Cancelled, Potassium Cancelled, Chloride Cancelled, Carbon Dioxide Cancelled, Anion Gap Cancelled, BUN Cancelled, Creatinine Cancelled, Estim Creat Clear Calc Cancelled, Est GFR (MDRD) Af Amer Cancelled, Est GFR (MDRD) Non-Af Cancelled, BUN/Creatinine Ratio Cancelled, Glucose Cancelled, Calcium Cancelled, Total Bilirubin Cancelled, AST Cancelled, ALT Cancelled, Alkaline Phosphatase Cancelled, Troponin I Cancelled, Total Protein Cancelled, Albumin Cancelled, Globulin Cancelled, Albumin/Globulin Ratio Cancelled, Lipase Cancelled 05/30/19 20:47: Lactic Acid 1.1 05/30/19 21:29: Sodium 131 L, Potassium 3.7, Chloride 104, Carbon Dioxide 13.0 L, Anion Gap 14, BUN 78 H, Creatinine 8.23 H*, Estim Creat Clear Calc 6.78, Est GFR (MDRD) Af Amer 6 L, Est GFR (MDRD) Non-Af 5 L, BUN/Creatinine Ratio 9.5 L, Glucose 96, Calcium 7.1 L, Total Bilirubin 0.30, AST 55 H, ALT 24, Alkaline Phosphatase 102, Troponin I < 0.015, Total Protein 8.1, Albumin 1.6 L, Globulin 6.5 H, Albumin/Globulin Ratio 0.2 L, Lipase 274 05/30/19 22:05: Urine Color Yellow, Urine Clarity Turbid, Urine pH 6.0, Ur Specific [place] 1.015, Urine Protein 100 H, Urine Glucose (UA) Normal, Urine Ketones Negative, Urine Occult Blood 250 H, Urine Nitrite Negative, Urine Bilirubin Negative, Urine Urobilinogen Normal, Ur Leukocyte Esterase 500 H, Urine RBC 0 SEEN, Urine WBC >100 SEEN, Ur Squamous Epith Cells 0 SEEN, Urine Bacteria 4+, Urine Mucus 0 SEEN, Urine Yeast 2+ 05/31/19 05:30: WBC 19.8 H, RBC 3.14 L, Hgb 10.0 L, Hct 29.0 L, MCV 92.4, MCH 31.8, MCHC 34.5, RDW 15.6 H, RDW Differential 52.6 H, Plt Count 458 H, MPV 10.3, Immature Gran % (Auto) 1.800 H, Neut % (Auto) 74.5 H, Lymph % (Auto) 19.9, Butts % (Auto) 3.4, Eos % (Auto) 0.3, Baso % (Auto) 0.1, Absolute Neuts (auto) 14.8 H, Absolute Lymphs (auto) 3.94, Total Counted Not Reportable, Differential Comment SCANNED 05/31/19 05:30: Sodium 135 L, Potassium 3.7, Chloride 108 H, Carbon Dioxide 11.0 L, BUN 82 H, Creatinine 8.01 H*, Estim Creat Clear Calc 6.97, Est GFR (MDRD) Af Amer 6 L, Est GFR (MDRD) Non-Af 5 L, BUN/Creatinine Ratio 10.2, Glucose 95, Calcium 7.0 L, Phosphorus 6.3 H, Albumin 1.6 L Diagnostic Data Chest X-Ray 05/30/19 20:25 IMPRESSION: COPD without radiographic evidence of acute cardiopulmonary disease. Electronically Signed: Carmen Masterson MD at 20:40 EDT , Service support , Current Medications Acetaminophen (Tylenol) 650 mg PO Q6H PRN PRN PRN Reason: Mild pain 1-3/Temp > 100.7 F Heparin Sodium (Porcine) (Heparin Na) 5,000 unit SC Q8 [facility] Last Admin: 05/31/19 01:46 Dose: Not Given Documented by: Piperacillin Sod/Tazobactam (Sod 3.375 gm/ Sodium Chloride) 50 mls @ 12.5 mls/hr IV Q12 [facility] Last Admin: 05/31/19 09:18 Dose: 12.5 mls/hr Documented by: Sodium Bicarbonate 150 meq/ (Dextrose) 1,150 mls @ 100 mls/hr IV .[id number] [facility] Last Admin: 05/31/19 09:18 Dose: 100 mls/hr Documented by: Sodium Chloride () 1,000 mls @ 50 mls/hr IV .Q20H [facility] Last Admin: 05/31/19 09:32 Dose: Not Given Documented by: Metoprolol Tartrate (Lopressor (Beta Neyda)) 25 mg PO BID [facility] Last Admin: 05/31/19 07:57 Dose: 25 mg Documented by: Nutritional Formula (Lactose Free) (Ensure Enlive) 120 ml PO 4X/DAY [facility] Last Admin: 05/31/19 07:50 Dose: Not Given Documented by: Ondansetron HCl (Zofran) 4 mg IV Q8H PRN PRN PRN Reason: NAUSEA/VOMITING Last Admin: 05/31/19 00:56 Dose: 4 mg Documented by: Sodium Chloride () 10 - 40 ml IV UD PRN PRN Reason: SALINE FLUSH Last Admin: 05/31/19 00:56 Dose: 10 ml Documented by: Medical Necessity - Tobacco Use Smoking Status: Never smoker Assessment/Plan All Active Problems (Last Reviewed 12/14/18 @ 07:17 by Joshua Strickland MD) LULY (acute kidney injury) (Acute) Urinary tract infection (Acute) Sepsis (Acute) Acute diarrhea (Acute) Hypokalemia (Acute) High anion gap metabolic acidosis (Resolved) H/O Dunbar's palsy (Resolved) Hx of cervical cancer (Resolved) 1. Sepsis due to UTI last urine culture (05/15/19) grew Pseudomonas admitted with a wbc of 22.3 and had tachycardia fever and tachycardia have resolved. wbc is down to 19.8 on IV zosyn blood and urine cultures pending 2. UTI due to Pseudomonas had bilateral ureteral tents placed in 05/07 o/a of bilateral ureteral osbrcution from radiation therapy supposed to be self catheterising as needed, howevere had not been doing so had Roberts catheter placed recently; Roberts catheter changed on admission urology on board on IV zosyn as above 3. LULY on CKD IV baseline CR is 2.5 likely a post-renal obstruction in light of her having stents due to ureteral obstruction admitting Cr was 8.23, is 8.01 today on IVF nephrology on board; for temporary dialysis catheter placement as she will need dialysis for LULY on CKD renal USG ordered urology on board 4. ANion anion gap metabolic acidosis bicarb is 11 today, anion gap is 16 likely due to uremia from severe LLUY on CKD on bicarb drip per nephro nephrology on board 5. Hypertension: on metoprolol. fairly controlled 6. Anemia: likely due to anemia of chronic disease, from CKD. Hb is 10 today. Will monitor DVT prophylaxis; heparin Code Visit Inpatient E&M: [id number] [facility] Hosp L3
--- NOTE | 2019-05-31 11:47 | PN.SURG_ITS ---
Patient Problems: Active and Suspected Problems (Last Reviewed 12/14/18 @ 07:17 by Joshua Strickland MD) LULY (acute kidney injury) (Acute) Subjective: Patient notes that she has upset stomach and diarrhea. - Physical Exam General: Alert, Oriented x3 Neck: No JVD Lungs: Normal air movement Abdomen: Soft, Non Tender Vital Signs Temp Pulse Resp BP Pulse Ox 98.4 F 88 16 135/78 H 99 05/31/19 09:30 05/31/19 09:30 05/31/19 09:30 05/31/19 09:30 05/31/19 09:30 Oxygen Delivery Method Room Air Weight: 158 lb 1.143 oz Body Mass Index (BMI) 24.0 Finger Stick Blood Glucose 92 Intake and Output for Last 24 Hours 05/29/19 05/30/19 05/31/19 23:59 23:59 23:59 Intake Total 1160 / 1160 Output Total 150 / 150 Balance 1010 / 1010 Laboratory Tests Past 24 Hrs 05/30/19 05/30/19 05/30/19 20:47 20:47 20:47 WBC 22.3 H RBC 3.32 L Hgb 10.6 L Hct 30.5 L MCV 91.9 MCH 31.9 MCHC 34.8 RDW 15.4 H RDW Differential 51.8 H Plt Count 491 H MPV 10.5 Immature Gran % (Auto) 1.600 H Neut % (Auto) 80.3 H Lymph % (Auto) 13.5 L [place] % (Auto) 4.3 Eos % (Auto) 0.2 Baso % (Auto) 0.1 Absolute Neuts (auto) 17.9 H Absolute Lymphs (auto) 3.01 Total Counted Not Reportable Differential Comment Sodium Cancelled Potassium Cancelled Chloride Cancelled Carbon Dioxide Cancelled Anion Gap Cancelled BUN Cancelled Creatinine Cancelled Estim Creat Clear Calc Cancelled Est GFR (MDRD) Af Amer Cancelled Est GFR (MDRD) Non-Af Cancelled BUN/Creatinine Ratio Cancelled Glucose Cancelled Lactic Acid 1.1 Calcium Cancelled Phosphorus Total Bilirubin Cancelled AST Cancelled ALT Cancelled Alkaline Phosphatase Cancelled Troponin I Cancelled Total Protein Cancelled Albumin Cancelled Globulin Cancelled Albumin/Globulin Ratio Cancelled Lipase Cancelled Urine Color Urine Clarity Urine pH Ur Specific [place] Urine Protein Urine Glucose (UA) Urine Ketones Urine Occult Blood Urine Nitrite Urine Bilirubin Urine Urobilinogen Ur Leukocyte Esterase Urine RBC Urine WBC Ur Squamous Epith Cells Urine Bacteria Urine Mucus Urine Yeast 05/30/19 05/30/19 05/31/19 21:29 22:05 05:30 WBC 19.8 H RBC 3.14 L Hgb 10.0 L Hct 29.0 L MCV 92.4 MCH 31.8 MCHC 34.5 RDW 15.6 H RDW Differential 52.6 H Plt Count 458 H MPV 10.3 Immature Gran % (Auto) 1.800 H Neut % (Auto) 74.5 H Lymph % (Auto) 19.9 [place] % (Auto) 3.4 Eos % (Auto) 0.3 Baso % (Auto) 0.1 Absolute Neuts (auto) 14.8 H Absolute Lymphs (auto) 3.94 Total Counted Not Reportable Differential Comment SCANNED Sodium 131 L Potassium 3.7 Chloride 104 Carbon Dioxide 13.0 L Anion Gap 14 BUN 78 H Creatinine 8.23 H* Estim Creat Clear Calc 6.78 Est GFR (MDRD) Af Amer 6 L Est GFR (MDRD) Non-Af 5 L BUN/Creatinine Ratio 9.5 L Glucose 96 Lactic Acid Calcium 7.1 L Phosphorus Total Bilirubin 0.30 AST 55 H ALT 24 Alkaline Phosphatase 102 Troponin I < 0.015 Total Protein 8.1 Albumin 1.6 L Globulin 6.5 H Albumin/Globulin Ratio 0.2 L Lipase 274 Urine Color Yellow Urine Clarity Turbid Urine pH 6.0 Ur Specific [place] 1.015 Urine Protein 100 H Urine Glucose (UA) Normal Urine Ketones Negative Urine Occult Blood 250 H Urine Nitrite Negative Urine Bilirubin Negative Urine Urobilinogen Normal Ur Leukocyte Esterase 500 H Urine RBC 0 SEEN Urine WBC >100 SEEN Ur Squamous Epith Cells 0 SEEN Urine Bacteria 4+ Urine Mucus 0 SEEN Urine Yeast 2+ 05/31/19 05:30 WBC RBC Hgb Hct MCV MCH MCHC RDW RDW Differential Plt Count MPV Immature Gran % (Auto) Neut % (Auto) Lymph % (Auto) [place] % (Auto) Eos % (Auto) Baso % (Auto) Absolute Neuts (auto) Absolute Lymphs (auto) Total Counted Differential Comment Sodium 135 L Potassium 3.7 Chloride 108 H Carbon Dioxide 11.0 L Anion Gap BUN 82 H Creatinine 8.01 H* Estim Creat Clear Calc 6.97 Est GFR (MDRD) Af Amer 6 L Est GFR (MDRD) Non-Af 5 L BUN/Creatinine Ratio 10.2 Glucose 95 Lactic Acid Calcium 7.0 L Phosphorus 6.3 H Total Bilirubin AST ALT Alkaline Phosphatase Troponin I Total Protein Albumin 1.6 L Globulin Albumin/Globulin Ratio Lipase Urine Color Urine Clarity Urine pH Ur Specific [place] Urine Protein Urine Glucose (UA) Urine Ketones Urine Occult Blood Urine Nitrite Urine Bilirubin Urine Urobilinogen Ur Leukocyte Esterase Urine RBC Urine WBC Ur Squamous Epith Cells Urine Bacteria Urine Mucus Urine Yeast Medical Necessity - Tobacco Use Smoking Status: Never smoker Assessment/Plan All Active Problems (Last Reviewed 12/14/18 @ 07:17 by Joshua Strickland MD) LULY (acute kidney injury) (Acute) Urinary tract infection (Acute) Sepsis (Acute) Acute diarrhea (Acute) Hypokalemia (Acute) High anion gap metabolic acidosis (Resolved) H/O Dunbar's palsy (Resolved) Hx of cervical cancer (Resolved) 68-year-old female with acute on chronic kidney injury 1. Patient is admitted with sepsis and I was consulted to place temporary dialysis catheter. Patient is requiring dialysis for a creatinine of 8. Source of sepsis is being sought out. Her urine is very cloudy and purulent appearing. 2. I discussed temporary dialysis catheter placement with the patient in detail. I discussed the risks including not limited to bleeding, infection, pneumothorax and line dislodgment or clotting. Patient understands risks and was willing to proceed with the insertion of catheter. 3. I inserted a temporary right IJ dialysis catheter at the bedside. Patient tolerated the procedure well. Chest x-ray is pending. Camden Powers MD Pager: [facility] [address] [place] [address] [address] [place] [address] Office:
--- NOTE | 2019-05-31 11:49 | PCM.OPRPT ---
Problem List (1) LULY (acute kidney injury) Status: Acute Report of Operation Date of Procedure: 05/31/19 Pre-Operative Diagnosis: Acute kidney injury Post-Operative Diagnosis: Same Surgery/Procedure Performed:: Ultrasound-guided right IJ temporary dialysis catheter insertion Description of Procedure: After consent was obtained the patient was placed in Trendelenburg position and the right neck was prepped and draped in usual sterile fashion. Ultrasound was used to localize the right IJ. Lidocaine was injected into the overlying skin and a small incision was made with a scalpel. Next the introducer needle was placed into the right IJ under direct visualization. The guidewire was placed through the needle and into the IJ and advanced. The needle was removed and the serial dilators were placed and removed. Next the catheter was placed over the guidewire and into the right IJ and both ports were tested and there was good drawback and flushing. Next both ports were capped. The catheter was then sutured to the skin using 3-0 nylon suture. The area was cleaned and a dressing was applied. The patient tolerated procedure well. Chest x-ray is pending and after chest x-ray confirms that the catheter is in the correct place they will be flushed with heparin. Grafts/Implants Used: Curved temporary dialysis catheter
--- NOTE | 2019-05-31 11:52 | RAD_ITS ---
STUDY: X-RAY CHEST REASON FOR EXAM: Female, 68 years old. Status post dialysis catheter placement. TECHNIQUE: Single AP portable view of the chest. COMPARISON: 03/31/2019. FINDINGS: There is a new right dialysis central venous catheter with its tip in the distal superior vena cava. The lungs are clear and expanded. There is no demonstrated pleural abnormality. Normal size heart. Normal mediastinum and wayne. Normal visualized pulmonary arteries. Normal visualized aortic arch and descending thoracic aorta. There is mild levoscoliosis of the thoracic spine which could be positional. Normal visualized ribs, clavicles, and shoulders. There is no demonstrated abnormality of the visualized soft tissue structures of the upper abdomen. RAD/CXR for Line Placement IMPRESSION: Status post temporary dialysis central venous catheter placement. No active pulmonary disease. Electronically Signed: Flip Lowry MD at 13:38 EDT Tel , Service support ,
--- NOTE | 2019-05-31 12:02 | NURSING ---
hep locked with 1.5cc heparin in each port per Dr. Powers post temp dialysis cath insertion
--- NOTE | 2019-05-31 16:14 | CM.UR ---
RN CM Assessment Introduced role of RN CM to patient.? Patient is alert and able?to participate in RN CM Assessment. ?Care providers, pharmacy, and demographics verified. Multiple family members at bedside. Presentation: Vomiting and not feeling well. Admit Dx: Renal failure, dehydration and UTI She recently had cystoscopy with bilateral pyelograms and bilateral stents placement done on 04/23/19. Patient was told to also self catheterize about 3 times a day. She has not been compliant with that. Creat 8.23 Re-Admit: No Barriers/Issues: None PCP: Ricky Specialists: [facility] Preferred Pharmacy: [facility] Insurance: [employer] Benefit: Yes. Denies problems with affording prescriptions. LNOK: LW/HPOA: none. Declined information at this time. Living Arrangements:? Lives in a 2 story home with , daughter and 2 grandchildren. ADL?s: States normally independent in the home. Transportation: . She does not drive. DME: BSC, walker, handheld shower, shower bench. DME co: [facility] HHC: None SNF: None Goal: To return home. DC PLAN: Home. ? Dialysis set up. Had temp dialysis cath placed. Tano Sherman RN, CCM.
[2019-05-31 19:39] LABS: Hepatitis B Surface Antibody Non-Reactive; Hepatitis B Surface Antigen Non-Reactive (Nonreactive)
[2019-05-31] MEDS: 0.9% Normal Saline 1,000 ML 50 ML IV ×2 (19:40→20:03)
--- NOTE | 2019-05-31 19:52 | DIALYSIS ---
HD x3 hours completed minus 15 mins due to circuit clotting last 15 mins (clotting quickly noted in circuit within first 30 mins of treatment), patient tolerated first HD treatment very well, accessed via right neck CVC which worked well, max blood flow reached and maintained throughout treatment, patient ran even, no fluid removed, HepB labs drawn and sent during treatment
[2019-05-31] MEDS: Heparin Injection (Vial) 5,000 UNIT/ML VIAL 5000 UNIT SC (21:52)
[2019-06-01] VITALS (11 sets, daily range): BP systolic 105–134; BP diastolic 57–83; PULSE 76–104; RESP 14–17; TEMP 36.6–37.6; O2SAT 95–99
[2019-06-01] MEDS: Acetaminophen 325 MG Tablet 650 MG PO (05:43)
[2019-06-01] MEDS: Heparin Injection (Vial) 5,000 UNIT/ML VIAL 5000 UNIT SC ×3 (05:45→21:40)
[2019-06-01 06:41] LABS: Anion Gap 13 (5-15); BUN 38 mg/dL (7-18); BUN/Creat Ratio 8.5 RATIO (10-20); Calcium,Total 6.6 mg/dL (8.5-10.1); Chloride 103 mmol/L (98-107); Creatinine, Serum 4.45 mg/dL (0.55-1.02); EST Glomerular Filtration Rate 11 mL/min (>60); Est Glom Filt Rate - Afr Amer 13 mL/min (>60); Estimated Creatinine Clearance 12.54 ml/min; Glucose 82 mg/dL (74-106); Potassium 2.7 mmol/L (3.5-5.1); Sodium Level 139 mmol/L (136-145)
[2019-06-01 06:59] LABS: Absolute Lymphocyte Count 2.85 X10^3/ul (0.83-4.51); Absolute Neutrophil Count 10.1 X10^3/uL (2.0-7.7); Basophil# 0.02 X10^3/uL; Basophil% 0.1 % (0-1); Eosinophils% 0.7 % (0-5); Lymphocyte # 2.85 X10^3/ul (4.0); Lymphocyte % 20.4 % (19-41); Mean Corp Hgb Conc 34.6 g/gl (32-36); Mean Corpuscular Hgb 31.5 pg (27.0-32.0); Mean Corpuscular Volume 90.9 fL (81-99); Mean Platelet Vol. 10.5 fl (6.2-12.0); Monocyte# 0.75 X10^3/uL; Monocyte% 5.4 % (0-10); Neutrophil # 10.12 X10^3/uL (2.7-7.7); Neutrophil % 72.4 % (47-70); Platelet Count 354 K/mm3 (150-450); RBC Distribution Width CV 15.2 % (11.6-14.6); RBC Distribution Width SD 50.7 fl (35.1-43.9); Red Blood Count 2.86 M/mm3 (4.2-5.4)
[2019-06-01 07:00] LABS: POSITIVE COUNT NO; POSITIVE DIFFERENTIAL NO; POSITIVE MORPHOLOGY NO
[2019-06-01] MEDS: Metoprolol Tartrate 25 MG Tablet PO ×2 (08:18→21:39)
[2019-06-01] MEDS: Potassium Chloride 10mEq/100mL 10 MEQ/100 ML IV.SOLN. 100 MEQ IV BOLUS ×4 (08:18→12:01)
--- NOTE | 2019-06-01 09:40 | PN_ITS ---
Patient Problems: Active and Suspected Problems (Last Reviewed 12/14/18 @ 07:17 by Joshua Strickland MD) LULY (acute kidney injury) (Acute) Subjective: Patient seen and examined. She feels much better. She has no complaints. She denies any fever chills, palpitations or dizziness chest pain, diarrhea vomiting. He does complain of some discomfort in the right side of her neck which is due to insertion of the dialysis catheter. She had dialysis yesterday after temporary dialysis catheter was inserted. Labs and vitals reviewed. Noted to have very low potassium of 2.7. Vitals/I&O's: Vital Signs Temp Pulse Resp BP Pulse Ox 97.8 F 87 17 111/62 95 06/01/19 09:10 06/01/19 09:10 06/01/19 09:10 06/01/19 09:10 06/01/19 09:10 Oxygen Delivery Method Room Air Weight: 157 lb 10.088 oz Body Mass Index (BMI) 24.0 Finger Stick Blood Glucose 92 Intake and Output for Last 24 Hours 05/30/19 05/31/19 06/01/19 23:59 23:59 23:59 Intake Total 2918 / 2918 508 / 508 Output Total 1600 / 1600 300 / 300 Balance 1318 / 1318 208 / 208 General: Alert, Oriented x3, Cooperative, No apparent distress HEENT: Atraumatic, PERRLA, EOMI, Normocephalic Oral: Moist Mucosa Neck: Supple, No JVD, Negative Carotid Bruits Lungs: Clear to auscultation, Normal air movement, No rhonchi, No wheeze, No rales Cardiovascular: Regular rate, Regular Rhythm, Normal S1, Normal S2, No murmurs Abdomen: Bowel Sounds Present, Soft, Non Tender, Non-Distended, No Hepato- splenomegaly, - - urethral Roberts Catheter contains clear urine. Extremities: No edema, Capillary Refill Less than 3 Seconds; Skin: No rashes, No breakdown Musculoskeletal: No Tenderness to Palpation of Joints or Extremities; dialysis catheter in right side of neck Lymphatic: No Cervical, Supraclavicular, or Inguinal Adenopathy Neurological: Cranial nerves II-XII grossly intact, Neuro grossly intact, Motor Exam 5/5 strength throughout Psych/Mental Status: Normal Affect, Appropriate, Alert and oriented to time, place, person, mood and affect Microbiology Past 72 Hours 05/30/19 22:05 Urine Catheter - Catheter Urine Culture - Preliminary Pseudomonas aeroginosa 05/31/19 11:11 Stool C. difficile DNA Amplification - Final Laboratory Results 05/31/19 17:18: Hep B Core Total Ab Pending 05/31/19 17:18: Hep Bs Antigen Non-Reactive, Hep Bs Antibody Non-Reactive 06/01/19 04:46: WBC 14.0 H, RBC 2.86 L, Hgb 9.0 L, Hct 26.0 L, MCV 90.9, MCH 31.5, MCHC 34.6, RDW 15.2 H, RDW Differential 50.7 H, Plt Count 354, MPV 10.5, Immature Gran % (Auto) 1.000 H, Neut % (Auto) 72.4 H, Lymph % (Auto) 20.4, [place] % (Auto) 5.4, Eos % (Auto) 0.7, Baso % (Auto) 0.1, Absolute Neuts (auto) 10.1 H, Absolute Lymphs (auto) 2.85, Total Counted Not Reportable 06/01/19 04:46: Sodium 139, Potassium 2.7 L*, Chloride 103, Carbon Dioxide 23.0, Anion Gap 13, BUN 38 H, Creatinine 4.45 H, Estim Creat Clear Calc 12.54, Est GFR (MDRD) Af Amer 13 L, Est GFR (MDRD) Non-Af 11 L, BUN/Creatinine Ratio 8.5 L, Glucose 82, Calcium 6.6 L Current Medications Acetaminophen (Tylenol) 650 mg PO Q6H PRN PRN PRN Reason: Mild pain 1-3/Temp > 100.7 F Last Admin: 06/01/19 05:43 Dose: 650 mg Documented by: Heparin Sodium (Porcine) (Heparin Na) 5,000 unit SC Q8 [facility] Last Admin: 06/01/19 05:45 Dose: 5,000 unit Documented by: Piperacillin Sod/Tazobactam (Sod 3.375 gm/ Sodium Chloride) 50 mls @ 12.5 mls/hr IV Q12 [facility] Last Admin: 05/31/19 21:52 Dose: 12.5 mls/hr Documented by: Sodium Chloride () 1,000 mls @ 50 mls/hr IV .Q20H [facility] Last Admin: 05/31/19 20:03 Dose: 50 mls/hr Documented by: Potassium Chloride () 10 meq in 100 mls @ 100 mls/hr IV BOLUS Q1H [facility] Stop: 06/01/19 11:59 Last Admin: 06/01/19 08:18 Dose: 100 mls/hr Documented by: Metoprolol Tartrate (Lopressor (Beta Neyda)) 25 mg PO BID [facility]IND[facility] Last Admin: 06/01/19 08:18 Dose: 25 mg Documented by: Ondansetron HCl (Zofran) 4 mg IV Q8H PRN PRN PRN Reason: NAUSEA/VOMITING Last Admin: 05/31/19 00:56 Dose: 4 mg Documented by: Sodium Chloride () 10 - 40 ml IV UD PRN PRN Reason: SALINE FLUSH Last Admin: 05/31/19 00:56 Dose: 10 ml Documented by: Medical Necessity - Tobacco Use Smoking Status: Never smoker Assessment/Plan All Active Problems (Last Reviewed 12/14/18 @ 07:17 by Joshua Strickland MD) LULY (acute kidney injury) (Acute) Urinary tract infection (Acute) Sepsis (Acute) Acute diarrhea (Acute) Hypokalemia (Acute) High anion gap metabolic acidosis (Resolved) H/O Dunbar's palsy (Resolved) Hx of cervical cancer (Resolved) 1. Sepsis due to UTI * urine cultured Pseudomonas * admitted with a wbc of 22.3 and had tachycardia * fever and tachycardia have resolved. wbc is down to 14 * on IV zosyn * blood cultures pending * 2. UTI due to Pseudomonas * had bilateral ureteral tents placed in 05/07 o/a of bilateral ureteral osbrcution from radiation therapy * supposed to be self catheterising as needed, howevere had not been doing so * had Roberts catheter placed recently; Roberts catheter changed on admission * urology on board * on IV zosyn * 3. LULY on CKD IV * baseline CR is 2.5 * likely a post-renal obstruction in light of her having stents due to ureteral obstruction * had dialysis yesterday via temporary IJ dialysis catheter, * CR down to 4.45 today, from 8.01 yesterday * renal USG showed numerous bilateral renal cysts and bilateral hydronephrosis, possible dilated calyces bilaterally, these could not be differentiated from cysts. * nephrology on board * urology consulted; awaiting rec's * 4. Hypokalemia: K today is 2.7. will replace and monitor. Check serum Mg level. 5. Anion anion gap metabolic acidosis: resolved. bicarb is 23, and anion gap is 13. * bicarb drip discontinued * patient had dialysis yesterday. * nephrology on board 6. Hypertension: on metoprolol. fairly controlled 7. Anemia: likely due to anemia of chronic disease, from CKD. Hb is 9 today. Will monitor DVT prophylaxis; heparin Code Visit Inpatient E&M: 80816 Subs Hosp L3
[2019-06-01 11:15] LABS: Magnesium 1.1 mg/dL (1.6-2.6)
[2019-06-01] MEDS: Magnesium Sulfate 4gm/100mL 4 GM/100 ML IV.SOLN. IV (13:00)
[2019-06-01] MEDS: 0.9% Normal Saline 1,000 ML 100 ML IV (17:04)
[2019-06-02] VITALS (16 sets, daily range): BP systolic 125–174; BP diastolic 63–88; PULSE 77–142; RESP 16–18; TEMP 36.4–36.8; O2SAT 95–98
[2019-06-02] MEDS: 0.9% Normal Saline 1,000 ML 100 ML IV ×2 (03:01→13:38)
[2019-06-02 06:39] LABS: Absolute Lymphocyte Count 3.64 X10^3/ul (0.83-4.51); Absolute Neutrophil Count 7.6 X10^3/uL (2.0-7.7); Basophil# 0.02 X10^3/uL; Basophil% 0.2 % (0-1); Eosinophil# 0.15 X10^3/uL; Eosinophils% 1.2 % (0-5); Hematocrit 25.9 % (37-47); Hemoglobin 8.6 g/dl (12.0-15.0); Lymphocyte # 3.64 X10^3/ul (4.0); Lymphocyte % 29.4 % (19-41); Mean Corp Hgb Conc 33.2 g/gl (32-36); Mean Corpuscular Hgb 30.7 pg (27.0-32.0); Mean Corpuscular Volume 92.5 fL (81-99); Mean Platelet Vol. 10.5 fl (6.2-12.0); Monocyte# 0.85 X10^3/uL; Monocyte% 6.9 % (0-10); Neutrophil # 7.56 X10^3/uL (2.7-7.7); Neutrophil % 61.2 % (47-70); Platelet Count 338 K/mm3 (150-450); RBC Distribution Width CV 14.9 % (11.6-14.6); RBC Distribution Width SD 48.8 fl (35.1-43.9); White Blood Count 12.4 K/mm3 (4.4-11.0)
[2019-06-02 06:41] LABS: Differential Indicated SCAN CRITERIA MET; POSITIVE COUNT NO; POSITIVE DIFFERENTIAL NO; POSITIVE MORPHOLOGY YES
[2019-06-02 06:55] LABS: Anion Gap 12 (5-15); BUN 39 mg/dL (7-18); BUN/Creat Ratio 8.2 RATIO (10-20); Chloride 108 mmol/L (98-107); Creatinine, Serum 4.78 mg/dL (0.55-1.02); EST Glomerular Filtration Rate 10 mL/min (>60); Est Glom Filt Rate - Afr Amer 12 mL/min (>60); Estimated Creatinine Clearance 11.68 ml/min; Glucose 86 mg/dL (74-106); Potassium 3.1 mmol/L (3.5-5.1); Sodium Level 141 mmol/L (136-145)
[2019-06-02 07:12] LABS: Differential Comment SCANNED
--- NOTE | 2019-06-02 07:29 | CON.PCM_ITS ---
Reason for Consult Date of Consultation: 06/02/19 Reason for Consultation: 68-year-old female with chronic bilateral ureteral obstruction suspect from radiation in the past. She has new bilateral stents but presented with acute renal failure History of Present Illness: The patient is a 68 year old female who has baseline creatinine around 2.5, recently had new stents placed and was found to have retention of urine at that point we instructed on self intermittent catheterization she was given catheters she went home however had some questions and a half to catheterize resolve was not sure possible poor compliance so she did not catheterize her soft she then presented to her family physicians with retention of urine he put in the catheter. But despite the catheter she ended up developing acute renal insufficiency. She presented to the hospital with acute renal sufficiency and feeling ill she underwent placement of a temporary dialysis catheter and has undergone dialysis. Her urine output is now picking up and she is making a sufficient amount of urine. On ultrasound she does have some mild to moderate hydronephrosis both kidneys she does have chronic kidney disease in both her kidneys on ultrasound. Currently I do not think I need to change his stents or do any intervention her urine output has picked up significantly after the catheter has been placed. Past Medical History Past Medical History (Chronic Problems): Chronic Problems (Last Reviewed 12/14/18 @ 07:17 by Joshua Strickland MD) Cervical cancer (Chronic) Bilateral hydronephrosis (Chronic) worsening. 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 Cervical cancer C53.9 History of hysterectomy Z90.710 Allergies pravastatin Allergy (Verified 05/30/19 20:43) Chest tightness sulfamethoxazole [From Bactrim] Allergy (Verified 05/30/19 20:43) Shortness of breath trimethoprim [From Bactrim] Allergy (Verified 05/30/19 20:43) Shortness of breath methylprednisolone Adverse Reaction (Verified 05/30/19 20:43) Pain in joints novacaine Allergy (Uncoded 05/30/19 20:43) Unknown Home Medications: Ambulatory Orders Medication Instructions Recorded albuterol sulfate HFA 90 1 puff INHALATION Q6H PRN 07/25/18 mcg/actuation aerosol inhaler Metoprolol Tartrate [Lopressor 25 mg PO BID 01/27/19 (beta dustin)] Potassium Chloride [K-Dur] 20 meq PO BID 03/31/19 Ciprofloxacin [Cipro] 500 mg PO BID 05/30/19 Surgical History: Surgical History (Last Reviewed 12/14/18 @ 07:18 by Joshua Strickland MD) History of cardiac catheterization Onset Date: ~01/08/18 Z98.890 normal coronaries History of cholecystectomy Z90.49 Surgical History: hysterectomy, - - Cholecystectomy; and Mass removed from kidney, rt ureteral stent plaement in 2016 Psychiatric History: No pertinent psych hx [employer] History: cervical cancer Lives: Spouse/ Significant Other Smoking Status: Never smoker Alcohol: None Drugs: None - *Family History Paternal Family History: Family History (Last Reviewed 11/21/18 @ 03:49 by Tera Mercer MD) Father CAD (coronary artery disease) History of coronary artery bypass surgery History Items: Heart Disease, Hypertension Maternal Family History: Family History (Last Reviewed 11/21/18 @ 03:49 by Tera Mercer MD) Father CAD (coronary artery disease) History of coronary artery bypass surgery History Items: Cancer - lung Review of Systems Constitutional: Reports: Anorexia. Denies: Chills, Fever, Weight Change HEENT: Denies: Head Aches, Sinus Congestion, Sinus Drainage Cardiovascular: Denies: Chest Pain, Palpitations Respiratory: Denies: Cough, Shortness of breath at rest, Sputum production Gastrointestinal: Denies: Abdominal Pain, Nausea, Vomiting Genitourinary: Denies: Dysuria Musculoskeletal: Denies: Joint Pain, Joint Tenderness Skin: Denies: Rash, Wounds Neurological: Denies: Numbness, Tingling, Focal weakness Psychiatric: Denies: Anxiety, Depression, Homicidal Ideations, Suicidal Ideations Hematologic/ Lymphatic: Denies: Easy Bruising, Easy Bleeding Physical Exam - Physical Exam Vital Signs Temp 97.8 F 06/02/19 03:05 Pulse 79 06/02/19 03:05 Resp 18 06/02/19 03:05 BP 125/66 H 06/02/19 03:05 Pulse Ox 95 06/02/19 03:05 Intake & Output 05/31/19 06/01/19 06/02/19 23:59 23:59 23:59 Intake Total 2918 / 2918 2659.6 / 2659.6 1840 / 1840 Output Total 1600 / 1600 1400 / 1400 800 / 800 Balance 1318 / 1318 1259.6 / 1259.6 1040 / 1040 Weight: 71.7 kg 71.5 kg 73.9 kg Intake: Oral 580 / 580 1000 / 1000 120 / 120 IV fluid/meds 2338 / 2338 1659.6 / 1659.6 1720 / 1720 Output: Urine 1600 / 1600 1400 / 1400 800 / 800 Dialysate 0 / 0 Other: Number of Bowel Movements 3 General: Alert, Oriented x3 HEENT: Atraumatic Oral: Moist Mucosa Neck: No JVD Lungs: Clear to auscultation Cardiovascular: Regular rate, Regular Rhythm Abdomen: Bowel Sounds Present, Soft Rectal: Exam deferred Microbiology Past 72 Hours 05/30/19 22:05 Urine Culture - Preliminary Urine Catheter - Catheter Pseudomonas aeroginosa 05/31/19 11:11 C. difficile DNA Amplification - Final Stool Laboratory Tests Past 24 Hrs 06/01/19 06/02/19 06/02/19 04:46 05:50 05:50 WBC 12.4 H RBC 2.80 L Hgb 8.6 L Hct 25.9 L MCV 92.5 MCH 30.7 MCHC 33.2 RDW 14.9 H RDW Differential 48.8 H Plt Count 338 MPV 10.5 Immature Gran % (Auto) 1.100 H Neut % (Auto) 61.2 Lymph % (Auto) 29.4 [place] % (Auto) 6.9 Eos % (Auto) 1.2 Baso % (Auto) 0.2 Absolute Neuts (auto) 7.6 Absolute Lymphs (auto) 3.64 Total Counted Not Reportable Differential Comment SCANNED Sodium 141 Potassium 3.1 L Chloride 108 H Carbon Dioxide 21.0 Anion Gap 12 BUN 39 H Creatinine 4.78 H Estim Creat Clear Calc 11.68 Est GFR (MDRD) Af Amer 12 L Est GFR (MDRD) Non-Af 10 L BUN/Creatinine Ratio 8.2 L Glucose 86 Calcium 7.0 L Magnesium 1.1 L Assessment/Plan All Active Problems (Last Reviewed 12/14/18 @ 07:17 by Joshua Strickland MD) LULY (acute kidney injury) (Acute) Urinary tract infection (Acute) Sepsis (Acute) Acute diarrhea (Acute) Hypokalemia (Acute) High anion gap metabolic acidosis (Resolved) H/O Dunbar's palsy (Resolved) Hx of cervical cancer (Resolved) 68-year-old female with history of cervical cancer in the past had radiation in the past she has bilateral obstruction of both her kidneys with ureteral strictures and distal ureters has bilateral stents which currently are working she is making urine and her urine production is fairly good. She did present with acute renal failure to the hospital etiology quite unclear could be from obstruction or temporary obstruction at this point she is undergone dialysis hopefully this will be temporary and hopefully her kidneys will start filtrating the urine properly. For now I think she is need to go home with a catheter until she can be taught how to self catheterize in a reliable fashion. She will be discharged home per the medical service when she does discharge please send her home with a catheter she can follow-up in my office and we can do more teaching on self intermittent catheterization to ensure that she has this properly.
--- NOTE | 2019-06-02 07:34 | PN_ITS ---
Patient Problems: Active and Suspected Problems (Last Reviewed 12/14/18 @ 07:17 by Joshua Strickland MD) LULY (acute kidney injury) (Acute) Subjective: Patient with no acute events overnight per self and per nursing report. Patient notes diarrhea has lessened. Denies any abdominal pain, nausea, emesis. Currently she is being set up for dialysis and is eager to know when she may potentially be discharged. Discussed current plan of dialysis x3 hours today and likely deferral on Sunday but will need to wait labs and assess if repeat dialysis may be needed Sunday. Discussed plan of care with current antibiotic therapy and patient is amenable. Patient denies fevers, chills, nausea, emesis, abdominal pain, chest pain or dyspnea. Objective: Physical Examination: General: awake, alert, oriented x 3 and cooperative, seated upright in bed in no apparent distress. Skin: normal color, turgor, no icterus, cyanosis sipped occasional staged ecchymoses. HEENT: AT/NC, EOMI, PERRLA, MMM, right IJ HD access in place being set up for dialysis. Lungs: CTA bilaterally, moderate effort, moderate decrease BL bases, no rales, ronchi or wheezing. Heart: Regular rate and rhythm; no gallop, rub audible. Abdomen: soft, NTTP, ND, normal BS. Extremities: no cyanosis, clubbing, or edema. Neurological: patient awake, alert, oriented x 3; cognitive function intact; pupils equally reactive to light and accomodation; cranial nerves II-XII grossly normal, moving all 4 extremities, no focal deficits, strength mildly to moderately global decrease, currently being set up for dialysis which complicate examination. Psychiatric: affect appears mildly fatigued, eager for discharge, no acute evidence of depressive or anxiety feelings. Vitals/I&O's: Vital Signs Temp Pulse Resp BP Pulse Ox 97.8 F 79 18 125/66 H 95 06/02/19 03:05 06/02/19 03:05 06/02/19 03:05 06/02/19 03:05 06/02/19 03:05 Oxygen Delivery Method Room Air Weight: 162 lb 14.746 oz Body Mass Index (BMI) 24.0 Finger Stick Blood Glucose 92 Intake and Output for Last 24 Hours 05/31/19 06/01/19 06/02/19 23:59 23:59 23:59 Intake Total 2918 / 2918 2659.6 / 2659.6 1840 / 1840 Output Total 1600 / 1600 1400 / 1400 800 / 800 Balance 1318 / 1318 1259.6 / 1259.6 1040 / 1040 Microbiology Past 72 Hours 05/30/19 22:05 Urine Catheter - Catheter Urine Culture - Preliminary Pseudomonas aeroginosa 05/31/19 11:11 Stool C. difficile DNA Amplification - Final Laboratory Results 06/01/19 04:46: Magnesium 1.1 L 06/02/19 05:50: WBC 12.4 H, RBC 2.80 L, Hgb 8.6 L, Hct 25.9 L, MCV 92.5, MCH 30.7, MCHC 33.2, RDW 14.9 H, RDW Differential 48.8 H, Plt Count 338, MPV 10.5, Immature Gran % (Auto) 1.100 H, Neut % (Auto) 61.2, Lymph % (Auto) 29.4, [place] % (Auto) 6.9, Eos % (Auto) 1.2, Baso % (Auto) 0.2, Absolute Neuts (auto) 7.6, Absolute Lymphs (auto) 3.64, Total Counted Not Reportable, Differential Comment SCANNED 06/02/19 05:50: Sodium 141, Potassium 3.1 L, Chloride 108 H, Carbon Dioxide 21.0, Anion Gap 12, BUN 39 H, Creatinine 4.78 H, Estim Creat Clear Calc 11.68, Est GFR (MDRD) Af Amer 12 L, Est GFR (MDRD) Non-Af 10 L, BUN/Creatinine Ratio 8.2 L, Glucose 86, Calcium 7.0 L Current Medications Acetaminophen (Tylenol) 650 mg PO Q6H PRN PRN PRN Reason: Mild pain 1-3/Temp > 100.7 F Last Admin: 06/01/19 05:43 Dose: 650 mg Documented by: Heparin Sodium (Porcine) (Heparin Na) 5,000 unit SC Q8 [facility] 234 BEDS AT THE [facility] Last Admin: 06/02/19 05:41 Dose: Not Given Documented by: Piperacillin Sod/Tazobactam (Sod 3.375 gm/ Sodium Chloride) 50 mls @ 12.5 mls/hr IV Q12 [facility] 234 BEDS AT THE [facility] Last Admin: 06/01/19 21:40 Dose: 12.5 mls/hr Documented by: Sodium Chloride () 1,000 mls @ 100 mls/hr IV .Q10H [facility] Last Admin: 06/02/19 03:01 Dose: 100 mls/hr Documented by: Metoprolol Tartrate (Lopressor (Beta Neyda)) 25 mg PO BID [facility] Last Admin: 06/01/19 21:39 Dose: 25 mg Documented by: Ondansetron HCl (Zofran) 4 mg IV Q8H PRN PRN PRN Reason: NAUSEA/VOMITING Last Admin: 05/31/19 00:56 Dose: 4 mg Documented by: Sodium Chloride () 10 - 40 ml IV UD PRN PRN Reason: SALINE FLUSH Last Admin: 05/31/19 00:56 Dose: 10 ml Documented by: Medical Necessity - Tobacco Use Smoking Status: Never smoker Assessment/Plan All Active Problems (Last Reviewed 12/14/18 @ 07:17 by Joshua Strickland MD) LULY (acute kidney injury) (Acute) Urinary tract infection (Acute) Sepsis (Acute) Acute diarrhea (Acute) Hypokalemia (Acute) High anion gap metabolic acidosis (Resolved) H/O Dunbar's palsy (Resolved) Hx of cervical cancer (Resolved) The patient is a 68 y/o F w/ PMHx: AOCD, CKD HTN, HLD, Asthma, Hx Cervical CA s/p hysterectomy and radiation complicated by urethral strictures, recurrent UTIs, history of chronic BL hydronephrosis and hydroureter w/ ureteral stent placements with recent evaluation 04/23/19 with recommendation following TID self- catheterization w/ 05/20/19 cipro regimen secondary to PCP Dx Pseudomonas UTI Dx who presents to the [facility] ED on 05/30/19 with ongoing nausea, fever. (1) Acute Sepsis secondary to Complicated Pseudomonas UTI w/ Morton Catheter/Self-Catheterization with History of Hydronephrosis, Hydroureter w/ prior Ureteral stents: Upon presentation patient with WBC 22.3, tachycardic, febrile. patient with history prior to presentation of bilateral ureteral stents placed on 05/07/19 recommended self-catheterization at that time but noncompliant with PCP follow-up and initiation of ciprofloxacin on 05/20/19; however, cultures with no resistance, Morton catheter had been placed, initiated on Zosyn been continued with plan for total 10 day duration of treatment total but will await ID evaluation, admission blood culture NGTD x 2. Given severity of presentation, need for HD related to her acute UTI with underlying renal disease will also request ID input. (2) Acute kidney injury on CKD stage IV: Secondary to #1, complicated Pseudomonas UTI with hydronephrosis, hydroureter and failure to perform self catheterization as recommended by the Urologist. Admission BUN/Cr 78/8.23, prior baseline creatinine noted to be 2.5-2.5. Hydrated, held nephrotoxic medications continue to trend BMP, morton catheter in place, 05/31/19 temporary IJ HD catheter placed w/ HD performed secondary to poor UOP, LULY. Renal US w/ numerous bilateral renal cysts and bilateral hydronephrosis, possible dilated calyces bilaterally. Holding ACEI/ARB. Nephrology consulted and following w/ 06/02/19 planned 3 hour HD session. Urology consulted and following. Once appropriate for discharge Urology requested discharge with morton with follow-up in his office for further attempts to teach self-catheterization. 06/02/19 BUN/Cr 39/4.78. (3) Metabolic Acidosis: Secondary to acute presentation, renal failure, initiated on bicarb drip initially until HD initiated, improving. (4) Hypokalemia: Admission K+ 3.1, supplementation given, repeat level in AM. (5) Hypomagnesia: Magnesium level 1.1, supplementation administered per prior, will repeat level now to assure improved although suspect may need additional regimen. (6) Hypertension: Continue home regimen including metoprolol, PRN hydralazine. (7) Diarrhea, Unclear Etiology: Unclear etiology, c-diff negative, possible related to abx for treatment of #1, loperamide PRN. (8) AOCD: Admission Hgb 10.6, repeat 10-->9-->8.6, likely secondary to her underlying CKD, continue to trend. (9) Chronic Asthma: PRN albuterol, HOB, IS parameters. (10) DVT prophylaxis: SCDs, heparin. Code Visit Inpatient E&M: 94116 Subs Hosp L2
[2019-06-02 07:45] LABS: Magnesium 2.2 mg/dL (1.6-2.6)
[2019-06-02] MEDS: Heparin 10,000 UNITS/10 ML Vial IV (13:40)
[2019-06-02] MEDS: Metoprolol Tartrate 25 MG Tablet PO ×2 (13:48→21:43)
--- NOTE | 2019-06-02 13:59 | PCM.PN.REN ---
Patient Problems: Active and Suspected Problems (Last Reviewed 12/14/18 @ 07:17 by Joshua Strickland MD) LULY (acute kidney injury) (Acute) Subjective: seen on dialysis, rise in creatinine today. Run even. Appetite improving. Change to regular diet. Poor nutrition, hypokalemic - Physical Exam General: Alert, Oriented x3, Cooperative, No apparent distress Lungs: Clear to auscultation Cardiovascular: Regular rate Abdomen: Bowel Sounds Present, Soft, Non Tender, Non-Distended Extremities: No edema Psych/Mental Status: Alert and oriented to time, place, person, mood and affect Vital Signs Temp Pulse Resp BP Pulse Ox 97.5 F L 78 18 157/88 H 98 06/02/19 09:59 06/02/19 13:48 06/02/19 09:59 06/02/19 13:48 06/02/19 09:59 Oxygen Delivery Method Room Air Weight: 73.9 kg Body Mass Index (BMI) 24.0 Finger Stick Blood Glucose 92 Intake and Output for Last 24 Hours 05/31/19 06/01/19 06/02/19 23:59 23:59 23:59 Intake Total 2918 / 2918 2659.6 / 2659.6 3033.8 / 3033.8 Output Total 1600 / 1600 1400 / 1400 1475 / 1475 Balance 1318 / 1318 1259.6 / 1259.6 1558.8 / 1558.8 Microbiology Past 72 Hours 05/30/19 22:05 Urine Culture - Final Urine Catheter - Catheter Pseudomonas aeroginosa 05/31/19 11:11 C. difficile DNA Amplification - Final Stool Laboratory Tests Past 24 Hrs 06/02/19 06/02/19 06/02/19 05:50 05:50 05:50 WBC 12.4 H RBC 2.80 L Hgb 8.6 L Hct 25.9 L MCV 92.5 MCH 30.7 MCHC 33.2 RDW 14.9 H RDW Differential 48.8 H Plt Count 338 MPV 10.5 Immature Gran % (Auto) 1.100 H Neut % (Auto) 61.2 Lymph % (Auto) 29.4 [place] % (Auto) 6.9 Eos % (Auto) 1.2 Baso % (Auto) 0.2 Absolute Neuts (auto) 7.6 Absolute Lymphs (auto) 3.64 Total Counted Not Reportable Differential Comment SCANNED Sodium 141 Potassium 3.1 L Chloride 108 H Carbon Dioxide 21.0 Anion Gap 12 BUN 39 H Creatinine 4.78 H Estim Creat Clear Calc 11.68 Est GFR (MDRD) Af Amer 12 L Est GFR (MDRD) Non-Af 10 L BUN/Creatinine Ratio 8.2 L Glucose 86 Calcium 7.0 L Magnesium 2.2 Medical Necessity - Tobacco Use Smoking Status: Never smoker Assessment/Plan All Active Problems (Last Reviewed 12/14/18 @ 07:17 by Joshua Strickland MD) LULY (acute kidney injury) (Acute) Urinary tract infection (Acute) Sepsis (Acute) Acute diarrhea (Acute) Hypokalemia (Acute) High anion gap metabolic acidosis (Resolved) H/O Dunbar's palsy (Resolved) Hx of cervical cancer (Resolved) 1. Acute kidney injury on CKD stage IV. HD today for rising Creatinine. Urine output improving. Watch for renal recovery next couple days. Uremic symptoms improved with dialysis. Change to regular diet. 2. History of obstructive uropathy status post bilateral ureteral stents. 3. Leukocytosis with fever pancultured, no growth so far 4. Diarrhea neg for C. difficile. 5. Metabolic acidosis due to renal failure resolved. . 6. HTN hold ACEI/ARB. No need for diuretics.
--- NOTE | 2019-06-02 14:50 | DIALYSIS ---
Hemodialysis completed as ordered. No UF today. Stable t/o tx. See flowsheet for details. Report to Shazia OCONNELL
[2019-06-02] MEDS: Heparin Injection (Vial) 5,000 UNIT/ML VIAL 5000 UNIT SC (16:07)
--- NOTE | 2019-06-02 17:49 | NURSING ---
Patient did not take Tylenol that she requested earlier. Medication had been opened. Same placed in sharps container.
[2019-06-02] MEDS: Acetaminophen 325 MG Tablet 650 MG PO (18:25)
[2019-06-03] VITALS (12 sets, daily range): BP systolic 120–158; BP diastolic 62–85; PULSE 81–97; RESP 16–18; TEMP 36.7–37.4; O2SAT 95–99
[2019-06-03 05:42] LABS: Absolute Lymphocyte Count 3.11 X10^3/ul (0.83-4.51); Absolute Neutrophil Count 7.4 X10^3/uL (2.0-7.7); Basophil# 0.02 X10^3/uL; Basophil% 0.2 % (0-1); Eosinophil# 0.22 X10^3/uL; Eosinophils% 1.9 % (0-5); Hematocrit 25.4 % (37-47); Hemoglobin 8.3 g/dl (12.0-15.0); Lymphocyte # 3.11 X10^3/ul (4.0); Lymphocyte % 26.5 % (19-41); Mean Corp Hgb Conc 32.7 g/gl (32-36); Mean Corpuscular Hgb 30.9 pg (27.0-32.0); Mean Corpuscular Volume 94.4 fL (81-99); Mean Platelet Vol. 10.7 fl (6.2-12.0); Monocyte% 7.7 % (0-10); Neutrophil # 7.38 X10^3/uL (2.7-7.7); Neutrophil % 62.9 % (47-70); Platelet Count 322 K/mm3 (150-450); RBC Distribution Width CV 14.9 % (11.6-14.6); Red Blood Count 2.69 M/mm3 (4.2-5.4); White Blood Count 11.7 K/mm3 (4.4-11.0)
[2019-06-03 05:43] LABS: POSITIVE COUNT NO; POSITIVE DIFFERENTIAL NO; POSITIVE MORPHOLOGY NO
[2019-06-03 06:01] LABS: Anion Gap 9 (5-15); BUN 19 mg/dL (7-18); BUN/Creat Ratio 5.8 RATIO (10-20); Calcium,Total 7.4 mg/dL (8.5-10.1); Chloride 106 mmol/L (98-107); Creatinine, Serum 3.26 mg/dL (0.55-1.02); EST Glomerular Filtration Rate 15 mL/min (>60); Est Glom Filt Rate - Afr Amer 18 mL/min (>60); Estimated Creatinine Clearance 17.12 ml/min; Glucose 85 mg/dL (74-106); Potassium 3.2 mmol/L (3.5-5.1); Sodium Level 141 mmol/L (136-145)
[2019-06-03] MEDS: Heparin Injection (Vial) 5,000 UNIT/ML VIAL 5000 UNIT SC ×3 (06:02→21:26)
[2019-06-03] MEDS: 0.9% Normal Saline 1,000 ML 50 ML IV (06:04)
--- NOTE | 2019-06-03 06:22 | PN_ITS ---
Patient Problems: Active and Suspected Problems (Last Reviewed 12/14/18 @ 07:17 by Joshua Strickland MD) LULY (acute kidney injury) (Acute) Subjective: Patient with no acute events overnight per self and per nursing report. She had dialysis x3 hours a day prior with improvement of her renal function today. Patient is eager for discharge however per discussion with patient and nephrology will need to remain until to assure no repeat dialysis needs on Sunday. Urine output continues to be monitored and have improved the day prior. Patient denies fevers, chills, nausea, emesis, abdominal pain, chest pain or dyspnea. Objective: Physical Examination: General: awake, alert, oriented x 3 and cooperative, seated upright in bed in no apparent distress. Skin: normal color, turgor, no icterus, cyanosis. HEENT: AT/NC, EOMI, PERRLA, MMM, right IJ HD access in place. Lungs: CTA bilaterally, moderate effort, moderate decrease BL bases, no rales, ronchi or wheezing. Heart: Regular rate and rhythm; no gallop, rub audible. Abdomen: soft, NTTP, ND, normal BS, morton in place, clear urine present in bag. Extremities: no cyanosis, clubbing, or edema. Neurological: patient awake, alert, oriented x 3; cognitive function intact; pupils equally reactive to light and accomodation; cranial nerves II-XII grossly normal, moving all 4 extremities, no focal deficits, strength improved, mildly global decrease. Psychiatric: affect appears improved, no acute evidence of depressive or anxiety feelings. Vitals/I&O's: Vital Signs Temp Pulse Resp BP Pulse Ox 98.4 F 85 16 151/69 H 95 06/03/19 03:40 06/03/19 03:40 06/03/19 03:40 06/03/19 03:40 06/03/19 03:40 Oxygen Delivery Method Room Air Weight: 162 lb 14.746 oz Body Mass Index (BMI) 24.0 Finger Stick Blood Glucose 92 Intake and Output for Last 24 Hours 06/01/19 06/02/19 06/03/19 23:59 23:59 23:59 Intake Total 2659.6 / 2659.6 5074.5 / 5074.5 303.1 / 303.1 Output Total 1400 / 1400 2150 / 2150 400 / 400 Balance 1259.6 / 1259.6 2924.5 / 2924.5 -96.9 / -96.9 Microbiology Past 72 Hours 05/30/19 22:05 Urine Catheter - Catheter Urine Culture - Final Pseudomonas aeroginosa 05/31/19 11:11 Stool C. difficile DNA Amplification - Final Laboratory Results 06/02/19 05:50: WBC 12.4 H, RBC 2.80 L, Hgb 8.6 L, Hct 25.9 L, MCV 92.5, MCH 30.7, MCHC 33.2, RDW 14.9 H, RDW Differential 48.8 H, Plt Count 338, MPV 10.5, Immature Gran % (Auto) 1.100 H, Neut % (Auto) 61.2, Lymph % (Auto) 29.4, [place] % (Auto) 6.9, Eos % (Auto) 1.2, Baso % (Auto) 0.2, Absolute Neuts (auto) 7.6, Absolute Lymphs (auto) 3.64, Total Counted Not Reportable, Differential Comment SCANNED 06/02/19 05:50: Sodium 141, Potassium 3.1 L, Chloride 108 H, Carbon Dioxide 21.0, Anion Gap 12, BUN 39 H, Creatinine 4.78 H, Estim Creat Clear Calc 11.68, Est GFR (MDRD) Af Amer 12 L, Est GFR (MDRD) Non-Af 10 L, BUN/Creatinine Ratio 8.2 L, Glucose 86, Calcium 7.0 L 06/02/19 05:50: Magnesium 2.2 06/03/19 05:10: WBC 11.7 H, RBC 2.69 L, Hgb 8.3 L, Hct 25.4 L, MCV 94.4, MCH 30.9, MCHC 32.7, RDW 14.9 H, RDW Differential 49.0 H, Plt Count 322, MPV 10.7, Immature Gran % (Auto) 0.800, Neut % (Auto) 62.9, Lymph % (Auto) 26.5, [place] % (Auto) 7.7, Eos % (Auto) 1.9, Baso % (Auto) 0.2, Absolute Neuts (auto) 7.4, Absolute Lymphs (auto) 3.11, Total Counted Not Reportable 06/03/19 05:10: Sodium 141, Potassium 3.2 L, Chloride 106, Carbon Dioxide 26.0, Anion Gap 9, BUN 19 H, Creatinine 3.26 H, Estim Creat Clear Calc 17.12, Est GFR (MDRD) Af Amer 18 L, Est GFR (MDRD) Non-Af 15 L, BUN/Creatinine Ratio 5.8 L, Glucose 85, Calcium 7.4 L Current Medications Acetaminophen (Tylenol) 650 mg PO Q6H PRN PRN PRN Reason: Mild pain 1-3/Temp > 100.7 F Last Admin: 06/02/19 18:25 Dose: 650 mg Documented by: Albuterol Sulfate (Ventolin Aerosols) 2.5 mg INHALATION Q2H PRN PRN PRN Reason: dyspnea, wheezing Heparin Sodium (Porcine) (Heparin Na) 5,000 unit SC Q8 [facility] Last Admin: 06/03/19 06:02 Dose: 5,000 unit Documented by: Piperacillin Sod/Tazobactam (Sod 3.375 gm/ Sodium Chloride) 50 mls @ 12.5 mls/hr IV Q12 [facility] Last Admin: 06/02/19 21:42 Dose: 12.5 mls/hr Documented by: Sodium Chloride () 1,000 mls @ 50 mls/hr IV .Q20H [facility] Last Admin: 06/03/19 06:04 Dose: 50 mls/hr Documented by: Loperamide HCl (Imodium) 2 mg PO Q2H PRN PRN PRN Reason: loose stools, max 8 mg/day Metoprolol Tartrate (Lopressor (Beta Neyda)) 25 mg PO BID [facility] Last Admin: 06/02/19 21:43 Dose: 25 mg Documented by: Ondansetron HCl (Zofran) 4 mg IV Q8H PRN PRN PRN Reason: NAUSEA/VOMITING Last Admin: 05/31/19 00:56 Dose: 4 mg Documented by: Sodium Chloride () 10 - 40 ml IV UD PRN PRN Reason: SALINE FLUSH Last Admin: 05/31/19 00:56 Dose: 10 ml Documented by: Medical Necessity - Tobacco Use Smoking Status: Never smoker Assessment/Plan All Active Problems (Last Reviewed 12/14/18 @ 07:17 by Joshua Strickland MD) LULY (acute kidney injury) (Acute) Urinary tract infection (Acute) Sepsis (Acute) Acute diarrhea (Acute) Hypokalemia (Acute) High anion gap metabolic acidosis (Resolved) H/O Dunbar's palsy (Resolved) Hx of cervical cancer (Resolved) The patient is a 68 y/o F w/ PMHx: AOCD, CKD HTN, HLD, Asthma, Hx Cervical CA s/p hysterectomy and radiation complicated by urethral strictures, recurrent UTIs, history of chronic BL hydronephrosis and hydroureter w/ ureteral stent placements with recent evaluation 04/23/19 with recommendation following TID self- catheterization w/ 05/20/19 cipro regimen secondary to PCP Dx Pseudomonas UTI Dx who presents to the [facility] ED on 05/30/19 with ongoing nausea, fever. (1) Acute Sepsis secondary to Complicated Pseudomonas UTI w/ Morton Catheter/Self-Catheterization with History of Hydronephrosis, Hydroureter w/ prior Ureteral stents: Upon presentation patient with WBC 22.3, tachycardic, febrile. patient with history prior to presentation of bilateral ureteral stents placed on 05/07/19 recommended self-catheterization at that time but noncompliant with PCP follow-up and initiation of ciprofloxacin on 05/20/19; however, cultures with no resistance, Morton catheter had been placed and will need to be continued per Urology request with attempts at d/c planned at follow-up with repeat attempts for self-catheterization training at that point. ID consulted given complicated UTI presentation, had been treated with zosyn upon presentation, 06/03/19 will plan transition to cefepime and likely complete prior to discharge. (2) Acute kidney injury on CKD stage IV: Secondary to #1, complicated Pseudomonas UTI with hydronephrosis, hydroureter and failure to perform self catheterization as recommended by the Urologist. Admission BUN/Cr 78/8.23, prior baseline creatinine noted to be 2.5-2.5. Hydrated, held nephrotoxic medications continue to trend BMP, morton catheter in place, 05/31/19 temporary IJ HD catheter placed w/ HD performed secondary to poor UOP, LULY. Renal US w/ numerous bilateral renal cysts and bilateral hydronephrosis, possible dilated calyces bilaterally. Nephrology consulted and following w/ 06/02/19 3 hour HD session, no HD plans 06/03/19, possible HD needs pending repeat functions on 06/04/19. 06/03/19 BUN/Cr 3.26. (3) Metabolic Acidosis: Secondary to acute presentation, renal failure, initiated on bicarb drip initially until HD initiated, resolved. (4) Hypokalemia: Admission K+ 3.2, supplementation given, repeat level in AM. (5) Hypomagnesia: Magnesium level 1.1, supplementation administered per prior, 06/03/19 repeat level 2.2. (6) Hypertension: Continue home regimen including metoprolol, PRN hydralazine. (7) Diarrhea, Unclear Etiology: Unclear etiology, c-diff negative, possible related to abx for treatment of #1, loperamide PRN. (8) AOCD: Admission Hgb 10.6, repeat 10-->9-->06/03/19 Hgb 8.3, continue to trend. (9) Chronic Asthma: PRN albuterol, HOB, IS parameters. (10) DVT prophylaxis: SCDs, heparin. Code Visit Inpatient E&M: 50116 Subs Hosp L2
[2019-06-03] MEDS: Loperamide 2 MG Capsule PO (09:22)
[2019-06-03] MEDS: Metoprolol Tartrate 25 MG Tablet PO ×2 (09:22→21:26)
--- NOTE | 2019-06-03 10:39 | PCM.HP.ID ---
Problem List (1) Urinary tract infection Status: Acute Qualifiers: Urinary tract infection type: catheter-associated UTI Reason for Consult: uti Consulted by: Dr. Ruiz History of Present Illness: The patient is a 68 year old F [] 68 y/o F with bilateral ureteral stents, follows with Dr. Strickland, presented with months of not feeling well, n/v. Recent fevers at home, denies any dysuria or changes in urine. Has had multiple infections this year, including two episodes of klebs bacteremia in Nov, and recurrent uti with MRSA, PsA, and enterobacter. Admitted here with sepsis and LULY requiring HD. On zosyn, feeling better. Ucx with PsA. Full ROS performed and neg except as noted above. - Medical History Past Medical History (Chronic Problems): Chronic Problems (Last Reviewed 12/14/18 @ 07:17 by Joshua Strickland MD) Cervical cancer (Chronic) Bilateral hydronephrosis (Chronic) worsening. Hyponatremia (Chronic) Hyperlipidemia (Chronic) HTN (hypertension) (Chronic) Mild intermittent asthma (Chronic) Allergies/Adverse Reactions: Allergies pravastatin Allergy (Verified 05/30/19 20:43) Chest tightness sulfamethoxazole [From Bactrim] Allergy (Verified 05/30/19 20:43) Shortness of breath trimethoprim [From Bactrim] Allergy (Verified 05/30/19 20:43) Shortness of breath methylprednisolone Adverse Reaction (Verified 05/30/19 20:43) Pain in joints novacaine Allergy (Uncoded 05/30/19 20:43) Unknown Home Medications: Ambulatory Orders Medication Instructions Recorded albuterol sulfate HFA 90 1 puff INHALATION Q6H PRN 07/25/18 mcg/actuation aerosol inhaler Metoprolol Tartrate [Lopressor 25 mg PO BID 01/27/19 (beta dustin)] Potassium Chloride [K-Dur] 20 meq PO BID 03/31/19 Ciprofloxacin [Cipro] 500 mg PO BID 05/30/19 - Social History Tobacco Use: non-smoker Vital Signs Temp Pulse Resp BP Pulse Ox 98.3 F 87 17 138/72 H 97 06/03/19 09:01 06/03/19 09:22 06/03/19 09:01 06/03/19 09:22 06/03/19 09:01 Oxygen Delivery Method Room Air Weight: 73.4 kg Body Mass Index (BMI) 24.0 Finger Stick Blood Glucose 92 Microbiology Past 72 Hours 05/30/19 20:10 Blood Culture - Preliminary Blood Culture (Wb) - Anticubital Right No growth in 48 hours. 05/30/19 20:15 Blood Culture - Preliminary Blood Culture (Wb) - Anticubital Right No growth in 48 hours. 05/30/19 22:05 Urine Culture - Final Urine Catheter - Catheter Pseudomonas aeroginosa 05/31/19 11:11 C. difficile DNA Amplification - Final Stool Laboratory Tests Past 24 Hrs 06/03/19 06/03/19 05:10 05:10 WBC 11.7 H RBC 2.69 L Hgb 8.3 L Hct 25.4 L MCV 94.4 MCH 30.9 MCHC 32.7 RDW 14.9 H RDW Differential 49.0 H Plt Count 322 MPV 10.7 Immature Gran % (Auto) 0.800 Neut % (Auto) 62.9 Lymph % (Auto) 26.5 [place] % (Auto) 7.7 Eos % (Auto) 1.9 Baso % (Auto) 0.2 Absolute Neuts (auto) 7.4 Absolute Lymphs (auto) 3.11 Total Counted Not Reportable Sodium 141 Potassium 3.2 L Chloride 106 Carbon Dioxide 26.0 Anion Gap 9 BUN 19 H Creatinine 3.26 H Estim Creat Clear Calc 17.12 Est GFR (MDRD) Af Amer 18 L Est GFR (MDRD) Non-Af 15 L BUN/Creatinine Ratio 5.8 L Glucose 85 Calcium 7.4 L - Other Studies Radiology: [] reviewed Other Studies: [] Route of nutrition/ use of supplements: [] Nutritional Intake: [] IV Site: [] Roberts Catheter: [] - Physical Exam General: Alert, Oriented x3, Cooperative, No apparent distress HEENT: Atraumatic, PERRLA, EOMI Neck: Supple, No Nodes, - - R neck temp HD cath Lungs: Clear to auscultation, Normal air movement Cardiovascular: Regular rate, Regular Rhythm, No murmurs Abdomen: Soft, Non Tender, Non-Distended Extremities: No edema Skin: No rashes IV Site: Peripheral, without redness Musculoskeletal: No Tenderness to Palpation of Joints or Extremities Neurological: Cranial nerves II-XII grossly intact - Assessment/Plan Antibiotics: [] Assessment/Plan: [] Active and Suspected Problems (Last Reviewed 12/14/18 @ 07:17 by Joshua Strickland MD) LULY (acute kidney injury) (Acute) sepsis with complicated PsA uti and LULY, ureteral stents in place. On zosyn, wbc and hr improved. Will change to cefepime for easier dosing given her kidney function. Likely will be able to complete course after dose tomorrow after HD. Will follow, thank you, d/w Dr. Ruiz.
[2019-06-03 12:19] LABS: Hepatitis B Core Ab Total Negative (Negative)
[2019-06-04] VITALS (20 sets, daily range): BP systolic 128–179; BP diastolic 64–85; PULSE 80–108; RESP 15–17; TEMP 36.6–37.2; O2SAT 93–100; BMI 24.4; BMI 24.0
[2019-06-04] MEDS: Heparin Injection (Vial) 5,000 UNIT/ML VIAL 5000 UNIT SC ×2 (05:07→23:06)
[2019-06-04 05:37] LABS: Absolute Lymphocyte Count 4.67 X10^3/uL (0.83-4.51); Absolute Neutrophil Count 7.2 X10^3/uL (2.0-7.7); Basophil# 0.05 X10^3/uL; Basophil% 0.4 % (0-1); Eosinophil# 0.32 X10^3/uL; Eosinophils% 2.4 % (0-5); Hematocrit 27.1 % (37-47); Hemoglobin 8.7 g/dL (12.0-15.0); Lymphocyte # 4.67 X10^3/ul (4.0); Lymphocyte % 35.4 % (19-41); Mean Corp Hgb Conc 32.1 g/dL (32-36); Mean Corpuscular Hgb 31.5 pg (27.0-32.0); Mean Corpuscular Volume 98.2 fL (81-99); Mean Platelet Vol. 10.3 fl (6.2-12.0); Monocyte# 0.79 X10^3/uL; Neutrophil % 54.7 % (47-70); Platelet Count 327 K/mm3 (150-450); Red Blood Count 2.76 M/mm3 (4.2-5.4); White Blood Count 13.2 K/mm3 (4.4-11.0)
[2019-06-04 05:45] LABS: POSITIVE COUNT NO; POSITIVE DIFFERENTIAL NO; POSITIVE MORPHOLOGY NO
[2019-06-04 05:55] LABS: Anion Gap 9 (5-15); BUN 24 mg/dL (7-18); BUN/Creat Ratio 5.4 RATIO (10-20); Calcium,Total 7.5 mg/dL (8.5-10.1); Chloride 107 mmol/L (98-107); Creatinine, Serum 4.47 mg/dL (0.55-1.02); EST Glomerular Filtration Rate 10 mL/min (>60); Est Glom Filt Rate - Afr Amer 13 mL/min (>60); Estimated Creatinine Clearance 12.49 ml/min; Glucose 81 mg/dL (74-106); Potassium 3.7 mmol/L (3.5-5.1); Sodium Level 140 mmol/L (136-145)
--- NOTE | 2019-06-04 07:02 | PCM.PN.HOSP ---
Patient Problems: Active and Suspected Problems (Last Reviewed 12/14/18 @ 07:17 by Joshua Strickland MD) LULY (acute kidney injury) (Acute) Subjective: Patient overnight with no acute events per self and per nursing report. Urine output has decreased some and renal function has increased from day prior which was discussed with patient and noted that she would require dialysis today. Discussed case also with nephrology who requested consultation with Dr. Sapp for transition of current line to a tunneled dialysis catheter for planned outpatient acute dialysis needs. Patient is eager for discharge but understands that she will need to main likely until repeat dialysis on with next dialysis been planned outpatient pending case management assistance on Sunday. Patient denies fevers, chills, nausea, emesis, abdominal pain, chest pain or dyspnea. Objective: Physical Examination: General: awake, alert, oriented x 3 and cooperative, seated upright in bed in no apparent distress, mildly irritated. Skin: normal color, turgor, no icterus, cyanosis. HEENT: AT/NC, EOMI, PERRLA, MMM, right IJ HD in place. Lungs: CTA bilaterally, moderate effort, moderate decrease BL bases, no rales, ronchi or wheezing. Heart: Regular rate and rhythm; no gallop, rub audible. Abdomen: soft, NTTP, ND, normal BS. Extremities: no cyanosis, clubbing, or edema. Neurological: patient awake, alert, oriented x 3; cognitive function intact; pupils equally reactive to light and accomodation; cranial nerves II-XII grossly normal, moving all 4 extremities, no focal deficits, strength mildly to moderately global decreased. Psychiatric: affect appears mildly fatigued, irritable, no acute evidence of depressive or anxiety feelings. Vitals/I&O's: Vital Signs Temp Pulse Resp BP Pulse Ox 98.6 F 84 16 160/83 H 93 06/04/19 02:00 06/04/19 03:00 06/04/19 02:00 06/04/19 02:00 06/04/19 02:00 Oxygen Delivery Method Room Air Weight: 161 lb 6.054 oz Body Mass Index (BMI) 24.0 Finger Stick Blood Glucose 92 Intake and Output for Last 24 Hours 06/02/19 06/03/19 06/04/19 23:59 23:59 23:59 Intake Total 5074.5 / 5074.5 2077.0 / 2877.0 925 / 925 Output Total 2150 / 2150 1000 / 1450 725 / 725 Balance 2924.5 / 2924.5 1077.0 / 1427.0 200 / 200 Microbiology Past 72 Hours 05/30/19 20:10 Blood Culture (Wb) - Anticubital Right Blood Culture - Preliminary No growth in 48 hours. 05/30/19 20:15 Blood Culture (Wb) - Anticubital Right Blood Culture - Preliminary No growth in 48 hours. 05/30/19 22:05 Urine Catheter - Catheter Urine Culture - Final Pseudomonas aeroginosa Laboratory Results 05/31/19 17:18: Hep B Core Total Ab Negative 06/04/19 05:15: WBC 13.2 H, RBC 2.76 L, Hgb 8.7 L, Hct 27.1 L, MCV 98.2, MCH 31.5, MCHC 32.1, RDW Std Deviation 54.0 H, RDW Coeff of [place] 15.0 H, Plt Count 327, MPV 10.3, Immature Gran % (Auto) 1.100 H, Neut % (Auto) 54.7, Lymph % (Auto) 35.4, [place] % (Auto) 6.0, Eos % (Auto) 2.4, Baso % (Auto) 0.4, Absolute Neuts (auto) 7.2, Absolute Lymphs (auto) 4.67 H, Total Counted Not Reportable 06/04/19 05:15: Sodium 140, Potassium 3.7, Chloride 107, Carbon Dioxide 24.0, Anion Gap 9, BUN 24 H, Creatinine 4.47 H, Estim Creat Clear Calc 12.49, Est GFR (MDRD) Af Amer 13 L, Est GFR (MDRD) Non-Af 10 L, BUN/Creatinine Ratio 5.4 L, Glucose 81, Calcium 7.5 L Current Medications Acetaminophen (Tylenol) 650 mg PO Q6H PRN PRN PRN Reason: Mild pain 1-3/Temp > 100.7 F Last Admin: 06/02/19 18:25 Dose: 650 mg Documented by: Albuterol Sulfate (Ventolin Aerosols) 2.5 mg INHALATION Q2H PRN PRN PRN Reason: dyspnea, wheezing Heparin Sodium (Porcine) (Heparin Na) 5,000 unit SC Q8 [facility] Last Admin: 06/04/19 05:07 Dose: 5,000 unit Documented by: Cefepime HCl 2 gm/ Sodium (Chloride) 100 mls @ 200 mls/hr IV X1 ONE Stop: 06/04/19 18:29 Loperamide HCl (Imodium) 2 mg PO Q2H PRN PRN PRN Reason: loose stools, max 8 mg/day Last Admin: 06/03/19 09:22 Dose: 2 mg Documented by: Metoprolol Tartrate (Lopressor (Beta Neyda)) 25 mg PO BID [facility] Last Admin: 06/03/19 21:26 Dose: 25 mg Documented by: Ondansetron HCl (Zofran) 4 mg IV Q8H PRN PRN PRN Reason: NAUSEA/VOMITING Last Admin: 05/31/19 00:56 Dose: 4 mg Documented by: Sodium Chloride () 10 - 40 ml IV UD PRN PRN Reason: SALINE FLUSH Last Admin: 05/31/19 00:56 Dose: 10 ml Documented by: Medical Necessity - Tobacco Use Smoking Status: Never smoker Assessment/Plan All Active Problems (Last Reviewed 12/14/18 @ 07:17 by Joshua Strickland MD) LULY (acute kidney injury) (Acute) Urinary tract infection (Acute) Sepsis (Acute) Acute diarrhea (Acute) Hypokalemia (Acute) High anion gap metabolic acidosis (Resolved) H/O Dunbar's palsy (Resolved) Hx of cervical cancer (Resolved) The patient is a 68 y/o F w/ PMHx: AOCD, CKD HTN, HLD, Asthma, Hx Cervical CA s/p hysterectomy and radiation complicated by urethral strictures, recurrent UTIs, history of chronic BL hydronephrosis and hydroureter w/ ureteral stent placements with recent evaluation 04/23/19 with recommendation following TID self-catheterization w/ 05/20/19 cipro regimen secondary to PCP Dx Pseudomonas UTI Dx who presents to the [facility] ED on 05/30/19 with ongoing nausea, fever. (1) Acute Sepsis secondary to Complicated Pseudomonas UTI w/ Morton Catheter/Self-Catheterization with History of Hydronephrosis, Hydroureter w/ prior Ureteral stents: Upon presentation patient with WBC 22.3, tachycardic, febrile. patient with history prior to presentation of bilateral ureteral stents placed on 05/07/19 recommended self-catheterization at that time but noncompliant with PCP follow-up and initiation of ciprofloxacin on 05/20/19; however, cultures with no resistance, Morton catheter had been placed and will need to be continued per Urology request with attempts at d/c planned at follow-up with repeat attempts for self-catheterization training at that point. ID consulted given complicated UTI presentation, had been treated with zosyn upon presentation, 06/03/19 transitioned to cefepime with plan for repeat cefepime after 06/04/19 HD session and consider completion of therapy. (2) Acute kidney injury on CKD stage IV: Secondary to #1, complicated Pseudomonas UTI with hydronephrosis, hydroureter and failure to perform self catheterization as recommended by the Urologist. Admission BUN/Cr 78/8.23, prior baseline creatinine noted to be 2.5-2.5. Hydrated, held nephrotoxic medications continue to trend BMP, morton catheter in place, 05/31/19 temporary IJ HD catheter placed w/ HD performed secondary to poor UOP, LULY. Renal US w/ numerous bilateral renal cysts and bilateral hydronephrosis, possible dilated calyces bilaterally. Nephrology consulted and following w/ 06/02/19 3 hour HD session, no HD 06/03/19, repeat 06/04/19 BUN/Cr worsened 24/4.47, decreased UOP from day prior with planned repeat HD needs. Per discussion with Nephrology, Dr. Richter consulted to transition patient to a tunneled dialysis catheter in case management consulted to assist in setting up initiation of outpatient acute dialysis, likely next session availability Sunday/ (3) Metabolic Acidosis: Secondary to acute presentation, renal failure, initiated on bicarb drip initially until HD initiated, resolved. (4) Hypokalemia: Admission K+ 3.2, supplementation given, 06/04/19 K 3.7. (5) Hypomagnesia: Magnesium level 1.1, supplementation administered per prior, 06/03/19 repeat level 2.2. (6) Hypertension: Continue home regimen including metoprolol, PRN hydralazine. (7) Diarrhea, Unclear Etiology: Unclear etiology, c-diff negative, possible related to abx for treatment of #1, loperamide PRN. (8) AOCD: Admission Hgb 10.6, repeat 10-->9-->06/04/19 Hgb 8.7, continue to trend, planned HD ongoing as noted. (9) Chronic Asthma: PRN albuterol, HOB, IS parameters. (10) DVT prophylaxis: SCDs, heparin. Code Visit Inpatient E&M: 95418 Subs Hosp L2
[2019-06-04] MEDS: Metoprolol Tartrate 25 MG Tablet PO ×2 (07:44→22:50)
--- NOTE | 2019-06-04 08:44 | PN.RENAL_ITS ---
Patient Problems: Active and Suspected Problems (Last Reviewed 12/14/18 @ 07:17 by Joshua Strickland MD) LULY (acute kidney injury) (Acute) Subjective: worsening renal function between dialysis. Uremic symptoms improved. UOP good with morton to CD. Will arrange dialysis today or tomorrow for acute on CKD. Will need tunneled catheter placed and arrangements made for outpt dialysis prior to discharge. - Physical Exam General: Alert, Oriented x3, Cooperative Lungs: Clear to auscultation Cardiovascular: Regular rate Abdomen: Bowel Sounds Present, Soft, Non Tender, Non-Distended Extremities: No edema Psych/Mental Status: Normal Affect, Alert and oriented to time, place, person, mood and affect Vital Signs Temp Pulse Resp BP Pulse Ox 97.8 F 82 15 161/80 H 95 06/04/19 07:35 06/04/19 07:44 06/04/19 07:35 06/04/19 07:44 06/04/19 07:35 Oxygen Delivery Method Room Air Weight: 73.2 kg Body Mass Index (BMI) 24.0 Finger Stick Blood Glucose 92 Intake and Output for Last 24 Hours 06/02/19 06/03/19 06/04/19 23:59 23:59 23:59 Intake Total 5074.5 / 5074.5 2077.0 / 2877.0 925 / 925 Output Total 2150 / 2150 1000 / 1450 725 / 725 Balance 2924.5 / 2924.5 1077.0 / 1427.0 200 / 200 Microbiology Past 72 Hours 05/30/19 20:10 Blood Culture - Preliminary Blood Culture (Wb) - Anticubital Right No growth in 48 hours. 05/30/19 20:15 Blood Culture - Preliminary Blood Culture (Wb) - Anticubital Right No growth in 48 hours. 05/30/19 22:05 Urine Culture - Final Urine Catheter - Catheter Pseudomonas aeroginosa Laboratory Tests Past 24 Hrs 05/31/19 06/04/19 06/04/19 17:18 05:15 05:15 WBC 13.2 H RBC 2.76 L Hgb 8.7 L Hct 27.1 L MCV 98.2 MCH 31.5 MCHC 32.1 RDW Std Deviation 54.0 H RDW Coeff of [place] 15.0 H Plt Count 327 MPV 10.3 Immature Gran % (Auto) 1.100 H Neut % (Auto) 54.7 Lymph % (Auto) 35.4 [place] % (Auto) 6.0 Eos % (Auto) 2.4 Baso % (Auto) 0.4 Absolute Neuts (auto) 7.2 Absolute Lymphs (auto) 4.67 H Total Counted Not Reportable Sodium 140 Potassium 3.7 Chloride 107 Carbon Dioxide 24.0 Anion Gap 9 BUN 24 H Creatinine 4.47 H Estim Creat Clear Calc 12.49 Est GFR (MDRD) Af Amer 13 L Est GFR (MDRD) Non-Af 10 L BUN/Creatinine Ratio 5.4 L Glucose 81 Calcium 7.5 L Hep B Core Total Ab Negative Medical Necessity - Tobacco Use Smoking Status: Never smoker Assessment/Plan All Active Problems (Last Reviewed 12/14/18 @ 07:17 by Joshua Strickland MD) LULY (acute kidney injury) (Acute) Urinary tract infection (Acute) Sepsis (Acute) Acute diarrhea (Acute) Hypokalemia (Acute) High anion gap metabolic acidosis (Resolved) H/O Dunbar's palsy (Resolved) Hx of cervical cancer (Resolved) 1. Acute kidney injury on CKD stage IV. HD today or tomorrow for rising Creatinine depending on tunneled catheter placement. Urine output improved. Watch for renal recovery. Uremic symptoms improved with dialysis. Arrange outpt dialysis as acute on CKD. Change to tunneled dialysis catheter later today. 2. History of obstructive uropathy status post bilateral ureteral stents. 3. Leukocytosis with fever improving on antibx for UTI 4. HTN add CCB 5 Anemia epo today
--- NOTE | 2019-06-04 10:11 | CASEMGMT ---
RN KAYA NOTE: Message received that Dr Matthews would like OP HD referral sent to [facility] w/anticipated To room to talk with pt and family. They are agreeable to OP HD and with [facility]. Per Dr Ruiz, anticipate 1st OP HD to be this Sunday06/07/19. Referral sent to [facility] via the on-line Admissions Portal and referral packet faxed to them @ . Referral packet also faxed to [facility]. Call placed to [facility] and spoke with nurse Iza. She states they have a chair time available on @ 1200 with arrival time on Sunday to be @ 1130. Spoke with pt and family and they are agreeable to this time and pt states she has transportation for this time as well. Rudolph ZHOUN RN CM
[2019-06-04] MEDS: Epoetin Alfa epbx 10,000 UNITS/ML 10000 UNIT SC (10:48)
[2019-06-04] MEDS: amLODIPine 5 MG Tablet PO (10:48)
--- NOTE | 2019-06-04 11:27 | PN.SURG_ITS ---
Patient Problems: Active and Suspected Problems (Last Reviewed 12/14/18 @ 07:17 by Joshua Strickland MD) LULY (acute kidney injury) (Acute) Subjective: Patient is a 68 y/o female I am following with Dr. Richter. Patient currently has temporary right internal jugular dialysis catheters which were placed on 05/31. Patient will need continued dialysis as an outpatient. She denies complications and side effects of anesthesia. She is due to have dialysis sometime today following the tunneled dialysis catheter placement. - Physical Exam General: Alert, Oriented x3, Cooperative HEENT: Atraumatic, PERRLA, EOMI, Normocephalic Neck: Supple, No JVD, Negative Carotid Bruits, - - Right temp IJ dialysis catheter Lungs: Clear to auscultation, Normal air movement Cardiovascular: Regular rate, No murmurs Abdomen: Bowel Sounds Present, Soft, Non Tender Extremities: No edema, Capillary Refill Less than 3 Seconds Skin: No rashes, No breakdown Musculoskeletal: No Tenderness to Palpation of Joints or Extremities Neurological: Cranial nerves II-XII grossly intact Psych/Mental Status: Normal Affect, Appropriate Vital Signs Temp Pulse Resp BP Pulse Ox 98.2 F 80 16 139/64 H 99 06/04/19 10:50 06/04/19 10:50 06/04/19 10:50 06/04/19 10:50 06/04/19 10:50 Oxygen Delivery Method Room Air Weight: 161 lb 6.054 oz Body Mass Index (BMI) 24.0 Finger Stick Blood Glucose 92 Intake and Output for Last 24 Hours 06/02/19 06/03/19 06/04/19 23:59 23:59 23:59 Intake Total 5074.5 / 5074.5 2077.0 / 2877.0 925 / 925 Output Total 2150 / 2150 1000 / 1450 725 / 725 Balance 2924.5 / 2924.5 1077.0 / 1427.0 200 / 200 Microbiology Past 72 Hours 05/30/19 20:10 Blood Culture - Preliminary Blood Culture (Wb) - Anticubital Right No growth in 48 hours. 05/30/19 20:15 Blood Culture - Preliminary Blood Culture (Wb) - Anticubital Right No growth in 48 hours. 05/30/19 22:05 Urine Culture - Final Urine Catheter - Catheter Pseudomonas aeroginosa Laboratory Tests Past 24 Hrs 05/31/19 06/04/19 06/04/19 17:18 05:15 05:15 WBC 13.2 H RBC 2.76 L Hgb 8.7 L Hct 27.1 L MCV 98.2 MCH 31.5 MCHC 32.1 RDW Std Deviation 54.0 H RDW Coeff of Dewey 15.0 H Plt Count 327 MPV 10.3 Immature Gran % (Auto) 1.100 H Neut % (Auto) 54.7 Lymph % (Auto) 35.4 [place] % (Auto) 6.0 Eos % (Auto) 2.4 Baso % (Auto) 0.4 Absolute Neuts (auto) 7.2 Absolute Lymphs (auto) 4.67 H Total Counted Not Reportable Sodium 140 Potassium 3.7 Chloride 107 Carbon Dioxide 24.0 Anion Gap 9 BUN 24 H Creatinine 4.47 H Estim Creat Clear Calc 12.49 Est GFR (MDRD) Af Amer 13 L Est GFR (MDRD) Non-Af 10 L BUN/Creatinine Ratio 5.4 L Glucose 81 Calcium 7.5 L Hep B Core Total Ab Negative Medical Necessity - Tobacco Use Smoking Status: Never smoker Assessment/Plan All Active Problems (Last Reviewed 12/14/18 @ 07:17 by Joshua Strickland MD) LULY (acute kidney injury) (Acute) Urinary tract infection (Acute) Sepsis (Acute) Acute diarrhea (Acute) Hypokalemia (Acute) High anion gap metabolic acidosis (Resolved) H/O Dunbar's palsy (Resolved) Hx of cervical cancer (Resolved) I am following this patient in conjunction with Dr. Richter Impression: Chronic renal failure Plan: Patient was discussed with Dr. Richter. Plan to remove temporary dialysis catheter at bedside by the dialysis nurse. Dr. Richter will plan to perform a right possible left chest tunneled dialysis catheter placement. Procedure details, risks and benefits have been discussed with the patient. Patient and her have had the opportunity to ask and have questions answered. Patient verbally understands and agrees with the plan. Thank you for allowing us to participate in this patient's care. Code Visit Inpatient E&M: 38522 Subs Hosp L1
--- NOTE | 2019-06-04 12:49 | DIALYSIS ---
HD x3 hours completed, no fluid removed today, patient tolerated well, 1 episode of n/v that subsided after medication administered, accessed via R chest tunneled HD CVC, dressing changed post-tx, next treatment scheduled potentially for tomorrow 06/05
--- NOTE | 2019-06-04 14:05 | DIALYSIS ---
Temporary right neck HD CVC pulled at 1340, patient informed of procedure, visitors stepped out of room, patient and nurse masked, stitches x2 removed, site cleansed, line pulled and pressure held [id number], gauze and tegaderm placed at 1350; next dialysis treatment to take place
--- NOTE | 2019-06-04 14:58 | PCM.PN.ID ---
Patient Problems: Active and Suspected Problems (Last Reviewed 12/14/18 @ 07:17 by Joshua Strickland MD) LULY (acute kidney injury) (Acute) Subjective: OR today for permacath. No fever, feeling ok. - Physical Exam General: Alert, Cooperative, No apparent distress Lungs: Clear to auscultation, Normal air movement Cardiovascular: Regular rate, Regular Rhythm Abdomen: Soft, Non Tender, Non-Distended Skin: No rashes Vital Signs Temp Pulse Resp BP Pulse Ox 98.8 F 91 16 179/85 H 100 06/04/19 14:46 06/04/19 14:46 06/04/19 14:46 06/04/19 14:46 06/04/19 14:46 Oxygen Delivery Method Room Air Weight: 73.2 kg Body Mass Index (BMI) 24.4 Finger Stick Blood Glucose 92 Intake and Output for Last 24 Hours 06/02/19 06/03/19 06/04/19 23:59 23:59 23:59 Intake Total 5074.5 / 5074.5 2077.0 / 2877.0 975 / 975 Output Total 2150 / 2150 1000 / 1450 725 / 725 Balance 2924.5 / 2924.5 1077.0 / 1427.0 250 / 250 Microbiology Past 72 Hours 05/30/19 20:10 Blood Culture - Preliminary Blood Culture (Wb) - Anticubital Right No growth in 48 hours. 05/30/19 20:15 Blood Culture - Preliminary Blood Culture (Wb) - Anticubital Right No growth in 48 hours. 05/30/19 22:05 Urine Culture - Final Urine Catheter - Catheter Pseudomonas aeroginosa Laboratory Tests Past 24 Hrs 06/04/19 06/04/19 05:15 05:15 WBC 13.2 H RBC 2.76 L Hgb 8.7 L Hct 27.1 L MCV 98.2 MCH 31.5 MCHC 32.1 RDW Std Deviation 54.0 H RDW Coeff of [place]wey 15.0 H Plt Count 327 MPV 10.3 Immature Gran % (Auto) 1.100 H Neut % (Auto) 54.7 Lymph % (Auto) 35.4 [place] % (Auto) 6.0 Eos % (Auto) 2.4 Baso % (Auto) 0.4 Absolute Neuts (auto) 7.2 Absolute Lymphs (auto) 4.67 H Total Counted Not Reportable Sodium 140 Potassium 3.7 Chloride 107 Carbon Dioxide 24.0 Anion Gap 9 BUN 24 H Creatinine 4.47 H Estim Creat Clear Calc 12.49 Est GFR (MDRD) Af Amer 13 L Est GFR (MDRD) Non-Af 10 L BUN/Creatinine Ratio 5.4 L Glucose 81 Calcium 7.5 L Medical Necessity - Tobacco Use Smoking Status: Never smoker Route of nutrition/ use of supplements: [] Nutritional Intake: [] IV Site: [] Roberts Catheter: [] - Assessment/Plan Antibiotics: [] Assessment/Plan: [] Active and Suspected Problems (Last Reviewed 12/14/18 @ 07:17 by Joshua Strickland MD) LULY (acute kidney injury) (Acute) sepsis with complicated PsA uti and LULY, ureteral stents in place. On cefepime, wbc and hr improved. Likely will be able to complete course after dose tomorrow after HD. Will follow, d/w Dr. Ruiz.
--- NOTE | 2019-06-04 16:01 | NURSING ---
REPORT CALLED TO ANTOINE
[2019-06-04] MEDS: Cefazolin 2 GM in 0.9% Normal Saline 100 ML IV (16:55)
[2019-06-04] MEDS: Bupivacaine Mpf 0.5% 30 ML VIAL (17:12)
[2019-06-04] MEDS: Heparin 10,000 UNITS/10 ML Vial 10000 UNITS (17:33)
--- NOTE | 2019-06-04 17:35 | OP.PCM_ITS ---
Problem List (1) LULY (acute kidney injury) Status: Acute Report of Operation Date of Procedure: 06/04/19 Pre-Operative Diagnosis: Acute kidney injury Post-Operative Diagnosis: Same Surgery/Procedure Performed:: 19 cm pre-curved right internal jugular double- lumen hemodialysis catheter placement. Palindrome. Reference #[id number]. Lot #[id number]. Expiry date March 20, 2023 Description of Surgical Findings:: Timeout informed consent was obtained. 68-year-old female was taken the operative placement table underwent monitored anesthesia care. Grams of Ancef were given intravenously preoperatively. The right neck was sterilely prepped draped. Ultrasound was used to identify the right internal jugular vein under ultrasound guidance 1% lidocaine mixed 50-50 with 0.5% Marcaine was used as local anesthetic. 2 3 cc was used. Local was instilled. Micropuncture needle inserted. Micropuncture wire inserted. Local instilled down upon the right chest wall. The 19 cm pre-curved palindrome cath was tunneled from the chest to the neck. Micropuncture sheath was placed 035 J-wire was placed serial dilatation was performed. The sheath dilator was placed under fluoroscopic control. The dilator wire removed. The catheter was advanced through the sheath. The sheath was split. The catheter was positioned close to the SVC atrial junction. Appeared to have a good curvilinear position. It aspirated easily. It was flushed with saline and then 2 cc per channel of heparinized saline. The neck site was closed with interrupted 5-0 Vicryl subdermal stitch. The catheter was secured to the skin with interrupted 3-0 nylon. Silver impregnated dressing was placed at the catheter exit site. Telfa OpSite dressing was placed on the neck. Sponge and instrument and needle counts were reported to the surgeon to be correct. Blood loss was minimal. She tolerated the procedure well. She was taken back to the recovery room in satisfactory condition without apparent complication. Stat portable chest x-ray is pending. Specimens none. Drains none. Blood loss minimal. Ky Richter M.D., F.A.C.S. Type of Anesthesia:: Local MAC Anesthesiologist: Santosh Paredes
--- NOTE | 2019-06-04 17:55 | RAD_ITS ---
STUDY: X-RAY CHEST REASON FOR EXAM: Female, 68 years old. Chest pain TECHNIQUE: Frontal view of the chest COMPARISON: X-ray chest May 30, 2019 FINDINGS: Right chest tunneled catheter is placed with the tip at the SVC. There is relatively high position of the curvature in the lower neck. The lungs are clear. There are no pleural effusions. There is no pneumothorax. The heart is normal in size. The visualized osseous structures are within normal limits. RAD/CXR for Line Placement IMPRESSION: No acute thoracic pathology. Right chest tunneled catheter with the tip at the SVC. Relatively high position of the curvature in the lower neck. Electronically Signed: Aman Campos, at 19:09 EDT Tel , Service support ,
[2019-06-05] VITALS (14 sets, daily range): BP systolic 135–147; BP diastolic 73–84; PULSE 77–139; RESP 15–16; TEMP 36.7–37; O2SAT 94–98
[2019-06-05] MEDS: Heparin Injection (Vial) 5,000 UNIT/ML VIAL 5000 UNIT SC ×3 (05:27→22:42)
[2019-06-05 06:17] LABS: Absolute Lymphocyte Count 6.92 X10^3/uL (0.83-4.51); Absolute Neutrophil Count 10.7 X10^3/uL (2.0-7.7); Basophil# 0.08 X10^3/uL; Basophil% 0.4 % (0-1); Eosinophil# 0.45 X10^3/uL; Eosinophils% 2.3 % (0-5); Hematocrit 31.5 % (37-47); Hemoglobin 9.8 g/dL (12.0-15.0); Lymphocyte # 6.92 X10^3/ul (4.0); Lymphocyte % 35.9 % (19-41); Mean Corp Hgb Conc 31.1 g/dL (32-36); Mean Corpuscular Hgb 30.8 pg (27.0-32.0); Mean Corpuscular Volume 99.1 fL (81-99); Mean Platelet Vol. 10.8 fl (6.2-12.0); Monocyte# 0.89 X10^3/uL; Monocyte% 4.6 % (0-10); Neutrophil % 55.7 % (47-70); POSITIVE DIFFERENTIAL YES; POSITIVE MORPHOLOGY YES; Platelet Count 431 K/mm3 (150-450); RBC Distribution Width CV 15.2 % (11.6-14.6); RBC Distribution Width SD 55.6 fl (35.1-43.9); Red Blood Count 3.18 M/mm3 (4.2-5.4); White Blood Count 19.3 K/mm3 (4.4-11.0)
[2019-06-05 06:25] LABS: Differential Indicated SCAN CRITERIA MET
[2019-06-05 06:35] LABS: Anion Gap 10 (5-15); BUN 29 mg/dL (7-18); BUN/Creat Ratio 5.2 RATIO (10-20); Chloride 104 mmol/L (98-107); Creatinine, Serum 5.57 mg/dL (0.55-1.02); EST Glomerular Filtration Rate 8 mL/min (>60); Est Glom Filt Rate - Afr Amer 10 mL/min (>60); Estimated Creatinine Clearance 10.02 ml/min; Glucose 83 mg/dL (74-106); Potassium 3.8 mmol/L (3.5-5.1); Sodium Level 138 mmol/L (136-145)
[2019-06-05 06:56] LABS: Differential Comment SCANNED
--- NOTE | 2019-06-05 08:30 | PCM.PN.REN ---
Patient Problems: Active and Suspected Problems (Last Reviewed 12/14/18 @ 07:17 by Joshua Strickland MD) LULY (acute kidney injury) (Acute) Subjective: dialysis catheter placed last night with rising creatinine between dialysis. Dialysis today with TTS schedule as outpt. - Physical Exam General: Alert, Oriented x3, Cooperative, No apparent distress Lungs: Clear to auscultation, Normal air movement Cardiovascular: Regular rate Abdomen: Bowel Sounds Present, Soft, Non Tender, Non-Distended Extremities: No edema Psych/Mental Status: Normal Affect, Appropriate, Alert and oriented to time, place, person, mood and affect Vital Signs Temp Pulse Resp BP Pulse Ox 98.4 F 77 16 145/80 H 98 06/05/19 05:25 06/05/19 07:08 06/05/19 05:25 06/05/19 05:25 06/05/19 05:25 Oxygen Delivery Method Room Air Weight: 74.4 kg Body Mass Index (BMI) 24.4 Finger Stick Blood Glucose 92 Intake and Output for Last 24 Hours 06/03/19 06/04/19 06/05/19 23:59 23:59 23:59 Intake Total 2077.0 / 2877.0 1575 / 2311 895 / 895 Output Total 1000 / 1450 1450 / 1825 875 / 875 Balance 1077.0 / 1427.0 125 / 486 Microbiology Past 72 Hours 05/30/19 20:10 Blood Culture - Final Blood Culture (Wb) - Anticubital Right No growth in 5 days. 05/30/19 20:15 Blood Culture - Final Blood Culture (Wb) - Anticubital Right No growth in 5 days. 05/30/19 22:05 Urine Culture - Final Urine Catheter - Catheter Pseudomonas aeroginosa Laboratory Tests Past 24 Hrs 06/05/19 06/05/19 05:50 05:50 WBC 19.3 H RBC 3.18 L Hgb 9.8 L Hct 31.5 L MCV 99.1 H MCH 30.8 MCHC 31.1 L RDW Std Deviation 55.6 H RDW Coeff of Dewey 15.2 H Plt Count 431 MPV 10.8 Immature Gran % (Auto) 1.100 H Neut % (Auto) 55.7 Lymph % (Auto) 35.9 [place] % (Auto) 4.6 Eos % (Auto) 2.3 Baso % (Auto) 0.4 Absolute Neuts (auto) 10.7 H Absolute Lymphs (auto) 6.92 H Total Counted Not Reportable Differential Comment SCANNED Sodium 138 Potassium 3.8 Chloride 104 Carbon Dioxide 24.0 Anion Gap 10 BUN 29 H Creatinine 5.57 H Estim Creat Clear Calc 10.02 Est GFR (MDRD) Af Amer 10 L Est GFR (MDRD) Non-Af 8 L BUN/Creatinine Ratio 5.2 L Glucose 83 Calcium 8.0 L Medical Necessity - Tobacco Use Smoking Status: Never smoker Assessment/Plan All Active Problems (Last Reviewed 12/14/18 @ 07:17 by Joshua Strickland MD) LULY (acute kidney injury) (Acute) Urinary tract infection (Acute) Sepsis (Acute) Acute diarrhea (Acute) Hypokalemia (Acute) High anion gap metabolic acidosis (Resolved) H/O Dunbar's palsy (Resolved) Hx of cervical cancer (Resolved) 1. Acute kidney injury on CKD stage IV. HD today for rising Creatinine between dialysis. Uremic symptoms improved with dialysis. Await outpt dialysis as acute on CKD. 2. History of obstructive uropathy status post bilateral ureteral stents. 3. Leukocytosis with fever improving on antibx for UTI, ID following 4. HTN BP better after added CCB 5 Anemia epo with dialysis
[2019-06-05] MEDS: Acetaminophen 325 MG Tablet 650 MG PO ×2 (08:31→15:02)
[2019-06-05] MEDS: Cefazolin 2 GM in 0.9% Normal Saline 100 ML IV (10:14)
--- NOTE | 2019-06-05 10:23 | PN.SURG_ITS ---
Patient Problems: Active and Suspected Problems (Last Reviewed 12/14/18 @ 07:17 by Joshua Strickland MD) LULY (acute kidney injury) (Acute) Subjective: Patient evaluated resting comfortably in bed. She notes discomfort at the neck insertion site. No discomfort at the chest site. She is scheduled to have dialysis sometime today. - Physical Exam General: Alert, Oriented x3, Cooperative Neck: - - Right chest- very small hematoma noted at the right neck puncture si te. Chest catheters in good position. No active bleeding noted. Vital Signs Temp Pulse Resp BP Pulse Ox 98.1 F 81 15 144/80 H 97 06/05/19 10:00 06/05/19 10:00 06/05/19 10:00 06/05/19 10:00 06/05/19 10:00 Oxygen Delivery Method Room Air Weight: 164 lb 0.383 oz Body Mass Index (BMI) 24.4 Finger Stick Blood Glucose 92 Intake and Output for Last 24 Hours 06/03/19 06/04/19 06/05/19 23:59 23:59 23:59 Intake Total 2077.0 / 2877.0 1575 / 2311 895 / 895 Output Total 1000 / 1450 1450 / 1825 875 / 875 Balance 1077.0 / 1427.0 125 / 486 20 Microbiology Past 72 Hours 05/30/19 20:10 Blood Culture - Final Blood Culture (Wb) - Anticubital Right No growth in 5 days. 05/30/19 20:15 Blood Culture - Final Blood Culture (Wb) - Anticubital Right No growth in 5 days. 05/30/19 22:05 Urine Culture - Final Urine Catheter - Catheter Pseudomonas aeroginosa Laboratory Tests Past 24 Hrs 06/05/19 06/05/19 05:50 05:50 WBC 19.3 H RBC 3.18 L Hgb 9.8 L Hct 31.5 L MCV 99.1 H MCH 30.8 MCHC 31.1 L RDW Std Deviation 55.6 H RDW Coeff of [place]wey 15.2 H Plt Count 431 MPV 10.8 Immature Gran % (Auto) 1.100 H Neut % (Auto) 55.7 Lymph % (Auto) 35.9 [place] % (Auto) 4.6 Eos % (Auto) 2.3 Baso % (Auto) 0.4 Absolute Neuts (auto) 10.7 H Absolute Lymphs (auto) 6.92 H Total Counted Not Reportable Differential Comment SCANNED Sodium 138 Potassium 3.8 Chloride 104 Carbon Dioxide 24.0 Anion Gap 10 BUN 29 H Creatinine 5.57 H Estim Creat Clear Calc 10.02 Est GFR (MDRD) Af Amer 10 L Est GFR (MDRD) Non-Af 8 L BUN/Creatinine Ratio 5.2 L Glucose 83 Calcium 8.0 L Medical Necessity - Tobacco Use Smoking Status: Never smoker Assessment/Plan All Active Problems (Last Reviewed 12/14/18 @ 07:17 by Joshua Strickland MD) LULY (acute kidney injury) (Acute) Urinary tract infection (Acute) Sepsis (Acute) Acute diarrhea (Acute) Hypokalemia (Acute) High anion gap metabolic acidosis (Resolved) H/O Dunbar's palsy (Resolved) Hx of cervical cancer (Resolved) I am following this patient in conjunction with Dr. Richter S/p right tunneled chest catheter placement Excellent positioning Ready for use We will sign off at this time Please consult our service if needed Thank you again for allowing us to participate in this patient's care. Code Visit Inpatient E&M: 53884 Subs Hosp L1 - No charge
--- NOTE | 2019-06-05 10:56 | PCM.PN.ID ---
Patient Problems: Active and Suspected Problems (Last Reviewed 12/14/18 @ 07:17 by Joshua Strickland MD) LULY (acute kidney injury) (Acute) Subjective: Feeling well, some soreness s/p temp hd catheter removal, no fever, no abd pain - Physical Exam General: Alert, Cooperative, No apparent distress Lungs: Clear to auscultation, Normal air movement Cardiovascular: Regular rate, Regular Rhythm Abdomen: Soft, Non Tender, Non-Distended Skin: No rashes Vital Signs Temp Pulse Resp BP Pulse Ox 98.1 F 81 15 144/80 H 97 06/05/19 10:00 06/05/19 10:00 06/05/19 10:00 06/05/19 10:00 06/05/19 10:00 Oxygen Delivery Method Room Air Weight: 74.4 kg Body Mass Index (BMI) 24.4 Finger Stick Blood Glucose 92 Intake and Output for Last 24 Hours 06/03/19 06/04/19 06/05/19 23:59 23:59 23:59 Intake Total 2077.0 / 2877.0 1575 / 2311 895 / 895 Output Total 1000 / 1450 1450 / 1825 875 / 875 Balance 1077.0 / 1427.0 125 / 486 20 Microbiology Past 72 Hours 05/30/19 20:10 Blood Culture - Final Blood Culture (Wb) - Anticubital Right No growth in 5 days. 05/30/19 20:15 Blood Culture - Final Blood Culture (Wb) - Anticubital Right No growth in 5 days. 05/30/19 22:05 Urine Culture - Final Urine Catheter - Catheter Pseudomonas aeroginosa Laboratory Tests Past 24 Hrs 06/05/19 06/05/19 05:50 05:50 WBC 19.3 H RBC 3.18 L Hgb 9.8 L Hct 31.5 L MCV 99.1 H MCH 30.8 MCHC 31.1 L RDW Std Deviation 55.6 H RDW Coeff of [place]wey 15.2 H Plt Count 431 MPV 10.8 Immature Gran % (Auto) 1.100 H Neut % (Auto) 55.7 Lymph % (Auto) 35.9 [place] % (Auto) 4.6 Eos % (Auto) 2.3 Baso % (Auto) 0.4 Absolute Neuts (auto) 10.7 H Absolute Lymphs (auto) 6.92 H Total Counted Not Reportable Differential Comment SCANNED Sodium 138 Potassium 3.8 Chloride 104 Carbon Dioxide 24.0 Anion Gap 10 BUN 29 H Creatinine 5.57 H Estim Creat Clear Calc 10.02 Est GFR (MDRD) Af Amer 10 L Est GFR (MDRD) Non-Af 8 L BUN/Creatinine Ratio 5.2 L Glucose 83 Calcium 8.0 L Medical Necessity - Tobacco Use Smoking Status: Never smoker Route of nutrition/ use of supplements: [] Nutritional Intake: [] IV Site: [] Roberts Catheter: [] - Assessment/Plan Antibiotics: [] Assessment/Plan: [] Active and Suspected Problems (Last Reviewed 12/14/18 @ 07:17 by Joshua Strickland MD) LULY (acute kidney injury) (Acute) sepsis with complicated PsA uti and LULY, ureteral stents in place. On cefepime, wbc and hr improved. Ok for d/c home today, no need for further abx. Will follow as needed
[2019-06-05] MEDS: Alteplase 2 MG/2 ML Vial IV ×4 (11:00→12:15)
[2019-06-05] MEDS: Metoprolol Tartrate 25 MG Tablet PO ×2 (15:03→22:44)
[2019-06-05] MEDS: amLODIPine 5 MG Tablet PO (15:03)
[2019-06-05] MEDS: Heparin 10,000 UNITS/10 ML Vial IV (15:05)
[2019-06-05] MEDS: Folic Acid/Vitamin B Comp W-C 1 Capsule 1 CAP PO (15:12)
--- NOTE | 2019-06-05 15:18 | CASEMGMT ---
Call to Lynette at [facility] and she states that pt's financials have still not cleared but it should go thru soon. This RN CM to continue to follow for further discharge planning/needs. Delio OCONNELL CM
--- NOTE | 2019-06-05 15:23 | PCM.PN.HOSP ---
Patient Problems: Active and Suspected Problems (Last Reviewed 12/14/18 @ 07:17 by Joshua Strickland MD) LULY (acute kidney injury) (Acute) Subjective: Patient overnight with no acute events per self and per nursing report. She did have some discomfort to the right neck where temporary dialysis catheter had been placed. Patient underwent tunneled catheter placement the evening prior per surgery however today there is difficulty accessing and using this. Plan of care currently for reattempts at tunneled dialysis catheter placement in a.m. and HD following. Patient remains eager for discharge with no acute complaints aside this at this time. Patient denies fevers, chills, nausea, emesis, abdominal pain, chest pain or dyspnea. Objective: Physical Examination: General: awake, alert, oriented x 3 and cooperative, seated upright in bed in no apparent distress, current dialysis attempts with recent tunneled catheter unsuccessful. Skin: normal color, turgor, no icterus, cyanosis. HEENT: AT/NC, EOMI, PERRLA, MMM, right IJ had been removed and a tunneled catheter had been placed, HD attempts currently not successful. Lungs: CTA bilaterally, moderate effort, moderate decrease BL bases, no rales, ronchi or wheezing. Heart: Regular rate and rhythm; no gallop, rub audible. Abdomen: soft, NTTP, ND, normal BS. Extremities: no cyanosis, clubbing, or edema. Neurological: patient awake, alert, oriented x 3; cognitive function intact; pupils equally reactive to light and accomodation; cranial nerves II-XII grossly normal, moving all 4 extremities, no focal deficits, strength mildly to moderately global decreased. Psychiatric: affect appears normal, no acute evidence of depressive or anxiety feelings. Vitals/I&O's: Vital Signs Temp Pulse Resp BP Pulse Ox 98.1 F 88 15 135/73 H 94 06/05/19 14:37 06/05/19 15:03 06/05/19 14:37 06/05/19 15:03 06/05/19 14:37 Oxygen Delivery Method Room Air Weight: 164 lb 0.383 oz Body Mass Index (BMI) 24.4 Finger Stick Blood Glucose 92 Intake and Output for Last 24 Hours 06/03/19 06/04/19 06/05/19 23:59 23:59 23:59 Intake Total 2077.0 / 2877.0 1575 / 2311 1595 / 1595 Output Total 1000 / 1450 1450 / 1825 1475 / 1475 Balance 1077.0 / 1427.0 125 / 486 120 / 120 Microbiology Past 72 Hours 05/30/19 20:10 Blood Culture (Wb) - Anticubital Right Blood Culture - Final No growth in 5 days. 05/30/19 20:15 Blood Culture (Wb) - Anticubital Right Blood Culture - Final No growth in 5 days. Laboratory Results 06/05/19 05:50: WBC 19.3 H, RBC 3.18 L, Hgb 9.8 L, Hct 31.5 L, MCV 99.1 H, MCH 30.8, MCHC 31.1 L, RDW Std Deviation 55.6 H, RDW Coeff of Dewey 15.2 H, Plt Count 431, MPV 10.8, Immature Gran % (Auto) 1.100 H, Neut % (Auto) 55.7, Lymph % (Auto) 35.9, Simpson % (Auto) 4.6, Eos % (Auto) 2.3, Baso % (Auto) 0.4, Absolute Neuts (auto) 10.7 H, Absolute Lymphs (auto) 6.92 H, Total Counted Not Reportable, Differential Comment SCANNED 06/05/19 05:50: Sodium 138, Potassium 3.8, Chloride 104, Carbon Dioxide 24.0, Anion Gap 10, BUN 29 H, Creatinine 5.57 H, Estim Creat Clear Calc 10.02, Est GFR (MDRD) Af Amer 10 L, Est GFR (MDRD) Non-Af 8 L, BUN/Creatinine Ratio 5.2 L, Glucose 83, Calcium 8.0 L Current Medications Acetaminophen (Tylenol) 650 mg PO Q6H PRN PRN PRN Reason: Mild pain 1-3/Temp > 100.7 F Last Admin: 06/05/19 15:02 Dose: 650 mg Documented by: Albuterol Sulfate (Ventolin Aerosols) 2.5 mg INHALATION Q2H PRN PRN PRN Reason: dyspnea, wheezing Amlodipine Besylate (Norvasc) 5 mg PO DAILY [facility] Last Admin: 06/05/19 15:03 Dose: 5 mg Documented by: Heparin Sodium (Porcine) (Heparin Na) 5,000 unit SC Q8 [facility] Last Admin: 06/05/19 15:12 Dose: 5,000 unit Documented by: Cefepime HCl 1 gm/ Sodium (Chloride) 50 mls @ 100 mls/hr IV X1 [facility] Last Admin: 06/04/19 18:44 Dose: 100 mls/hr Documented by: Loperamide HCl (Imodium) 2 mg PO Q2H PRN PRN PRN Reason: loose stools, max 8 mg/day Last Admin: 06/03/19 09:22 Dose: 2 mg Documented by: Metoprolol Tartrate (Lopressor (Beta Neyda)) 25 mg PO BID [facility] Last Admin: 06/05/19 15:03 Dose: 25 mg Documented by: Multivit/Ca Carb/B Cmplx/FA/Prenat (Nephrocaps, Renaphro) 1 capsule PO DAILY@1200 [facility] Last Admin: 06/05/19 15:12 Dose: 1 capsule Documented by: Ondansetron HCl (Zofran) 4 mg IV Q8H PRN PRN PRN Reason: NAUSEA/VOMITING Last Admin: 05/31/19 00:56 Dose: 4 mg Documented by: Sodium Chloride () 10 - 40 ml IV UD PRN PRN Reason: SALINE FLUSH Last Admin: 05/31/19 00:56 Dose: 10 ml Documented by: Medical Necessity - Tobacco Use Smoking Status: Never smoker Assessment/Plan All Active Problems (Last Reviewed 12/14/18 @ 07:17 by Joshua Strickland MD) LULY (acute kidney injury) (Acute) Urinary tract infection (Acute) Sepsis (Acute) Acute diarrhea (Acute) Hypokalemia (Acute) High anion gap metabolic acidosis (Resolved) H/O Dunbar's palsy (Resolved) Hx of cervical cancer (Resolved) The patient is a 68 y/o F w/ PMHx: AOCD, CKD HTN, HLD, Asthma, Hx Cervical CA s/p hysterectomy and radiation complicated by urethral strictures, recurrent UTIs, history of chronic BL hydronephrosis and hydroureter w/ ureteral stent placements with recent evaluation 04/23/19 with recommendation following TID self-catheterization w/ 05/20/19 cipro regimen secondary to PCP Dx Pseudomonas UTI Dx who presents to the [facility] ED on 05/30/19 with ongoing nausea, fever. (1) Acute Sepsis secondary to Complicated Pseudomonas UTI w/ Morton Catheter/Self-Catheterization with History of Hydronephrosis, Hydroureter w/ prior Ureteral stents: Upon presentation patient with WBC 22.3, tachycardic, febrile. patient with history prior to presentation of bilateral ureteral stents placed on 05/07/19 recommended self-catheterization at that time but noncompliant with PCP follow-up and initiation of ciprofloxacin on 05/20/19; however, cultures with no resistance, Morton catheter had been placed and will need to be continued per Urology request with attempts at d/c planned at follow-up with repeat attempts for self-catheterization training at that point. ID consulted given complicated UTI presentation, had been treated with zosyn upon presentation, 06/03/19 transitioned to cefepime with infectious disease noting completion of therapy. No further antibiotic necessary. (2) Acute kidney injury on CKD stage IV: Secondary to #1, complicated Pseudomonas UTI with hydronephrosis, hydroureter and failure to perform self catheterization as recommended by the Urologist. Admission BUN/Cr 78/8.23, prior baseline creatinine noted to be 2.5-2.5. Hydrated, held nephrotoxic medications continue to trend BMP, morton catheter in place, 05/31/19 temporary IJ HD catheter placed w/ HD performed secondary to poor UOP, LULY. Renal US w/ numerous bilateral renal cysts and bilateral hydronephrosis, possible dilated calyces bilaterally. Nephrology consulted and following w/ 06/02/19 3 hour HD session, no HD 06/03/19, repeat 06/04/19 BUN/Cr worsened 24/4.47, decreased UOP from day prior with planned repeat HD needs; however, patient underwent tunneled dialysis catheter placement 06/04/19 evening w/ then planned HD today, 06/05/19; however, recent access unable to be used therefore at this time planned repeat tunneled dialysis catheter placement in a.m. 06/06/19 with HD following. 06/05/19 BUN/Cr 29/5.57. Patient currently once sure tunneled dialysis catheter functional and dialysis received appropriate for discharge with outpatient dialysis set up Sunday, , Sunday. (3) Metabolic Acidosis: Secondary to acute presentation, renal failure, initiated on bicarb drip initially until HD initiated, resolved. (4) Hypokalemia: Admission K+ 3.2, supplementation given, 06/05/19 K 3.8. (5) Hypomagnesia: Magnesium level 1.1, supplementation administered per prior, 06/03/19 repeat level 2.2. (6) Hypertension: Continue home regimen including metoprolol, PRN hydralazine. (7) Diarrhea, Unclear Etiology: Unclear etiology, c-diff negative, possible related to abx for treatment of #1, loperamide PRN. (8) AOCD: Admission Hgb 10.6, repeat 10-->9-->06/05/19 Hgb 9.8, continue to trend, planned HD ongoing as noted. (9) Chronic Asthma: PRN albuterol, HOB, IS parameters. (10) DVT prophylaxis: SCDs, heparin. Code Visit Inpatient E&M: 20569 Subs Hosp L2
--- NOTE | 2019-06-05 18:01 | DIALYSIS ---
Tx cancelled today d/t non-functioning HD CVC access. Cathflo instilled 2xs per lumen for 60mins each time. Tx attempted. Unable to obtain BFR over 150. Venous has no push/pull. Arterial has no pull. Dr. Matthews notified. Dr. Kennedy to replace HD CVC line 06/06/19. Report given to ANISH Davenport. Pt stable
[2019-06-05] MEDS: 0.9% NaCl Peripheral Flush Adult/Peds IV (18:18)
[2019-06-06] VITALS (17 sets, daily range): BP systolic 108–144; BP diastolic 66–82; PULSE 71–101; RESP 16–20; TEMP 36.3–36.8; O2SAT 96–99; BMI 24.5
[2019-06-06 05:50] LABS: Absolute Lymphocyte Count 3.85 X10^3/uL (0.83-4.51); Absolute Neutrophil Count 7.7 X10^3/uL (2.0-7.7); Basophil# 0.06 X10^3/uL; Basophil% 0.5 % (0-1); Eosinophil# 0.48 X10^3/uL; Eosinophils% 3.7 % (0-5); Hematocrit 27.5 % (37-47); Hemoglobin 8.9 g/dL (12.0-15.0); Lymphocyte # 3.85 X10^3/ul (4.0); Lymphocyte % 29.4 % (19-41); Mean Corp Hgb Conc 32.4 g/dL (32-36); Mean Corpuscular Hgb 31.8 pg (27.0-32.0); Mean Corpuscular Volume 98.2 fL (81-99); Mean Platelet Vol. 10.7 fl (6.2-12.0); Monocyte# 0.85 X10^3/uL; Monocyte% 6.5 % (0-10); Neutrophil % 58.6 % (47-70); Platelet Count 352 K/mm3 (150-450); RBC Distribution Width CV 14.8 % (11.6-14.6); RBC Distribution Width SD 53.7 fl (35.1-43.9); White Blood Count 13.1 K/mm3 (4.4-11.0)
[2019-06-06 06:04] LABS: BUN 36 mg/dL (7-18); Creatinine, Serum 6.08 mg/dL (0.55-1.02); EST Glomerular Filtration Rate 7 mL/min (>60); Estimated Creatinine Clearance 9.18 ml/min; Glucose 79 mg/dL (74-106)
[2019-06-06 06:05] LABS: Anion Gap 10 (5-15); BUN/Creat Ratio 5.9 RATIO (10-20); Calcium,Total 7.4 mg/dL (8.5-10.1); Chloride 108 mmol/L (98-107); Est Glom Filt Rate - Afr Amer 9 mL/min (>60); Potassium 3.4 mmol/L (3.5-5.1); Sodium Level 140 mmol/L (136-145)
[2019-06-06] MEDS: Metoprolol Tartrate 25 MG Tablet PO (09:42)
[2019-06-06] MEDS: amLODIPine 5 MG Tablet PO (09:43)
--- NOTE | 2019-06-06 10:02 | CASEMGMT ---
Addendum entered by Elena Jung 06/06/19 14:28: Tunnel lcath op notes faxed to [facility] per request at this time. Delio OCONNELL CM Addendum entered by Elena Jung 06/06/19 13:04: Pt updated on all at this time, voices understanding. Dialysis is en route to dialyze pt prior to discharge as it was not able to be done yesterday, due to tunnel cath not working at that time. Pt voices no further questions/concerns/needs at this time. Delio OCONNELL CM Original Note: Call to [facility] and per Lynette, pt has been financially cleared for treatment and they are ready for her to start tomorrow at [address] Ruiz aware at this time, voices understanding but states that pt is getting new tunnel cath today and will then be dialyzed today with probable discharge later today and start of OP dialysis tomorrow. Delio OCONNELL CM
[2019-06-06] MEDS: Cefazolin 2 GM in 0.9% Normal Saline 100 ML IV (10:14)
[2019-06-06] MEDS: Bupivacaine Mpf 0.5% 30 ML VIAL (10:30)
[2019-06-06] MEDS: Heparin 10,000 UNITS/10 ML Vial 10000 UNITS (10:31)
--- NOTE | 2019-06-06 10:56 | OP.PCM_ITS ---
Problem List (1) LULY (acute kidney injury) Status: Acute Report of Operation Date of Procedure: 06/06/19 Pre-Operative Diagnosis: Problem with right internal jugular dialysis access Post-Operative Diagnosis: Same Surgery/Procedure Performed:: Ultrasound-guided left internal jugular pre-curved 23 cm palindrome catheter placement, removal right internal jugular palindrome catheter Description of Surgical Findings:: Timeout and informed consent was obtained. 68-year-old female was taken to the operating room placed on the table Ancef 2 g were given. The left neck was sterilely prepped draped. Ultrasound was used to identify the left internal jugular vein. 1% lidocaine mixed 50-50 with 0.5% Marcaine was used as local anesthetic. A total of 10 cc was used. Under ultrasound guidance local was instilled. Micropuncture needle inserted. Micropuncture wire inserted. Fluoroscopic control this was placed in the SVC. Local was instilled down upon the chest wall. The 23 cm pre-curved palindrome catheter was tunneled from the chest to the neck site. Micropuncture sheath was placed over the wire. 035 J- wire was inserted. Serial dilatation was performed. The sheath dilator was placed over the wire. The dilator wire removed. The catheter was advanced through the sheath. The catheter was positioned to have a nice curvilinear positioning. It seemed to aspirate well. It aspirated was flushed with 2 cc of saline per channel and 2 cc of heparin per channel. It was secured to skin with interrupted 3-0 nylon. The neck site was closed with interrupted 5-0 Vicryl subdermal stitch. Silver dressing was placed at the chest catheter exit site. Telfa OpSite dressing and Steri-Strips applied to the neck. Attention was drawn to the right IJ catheter. The exit site was prepped with Betadine. 1% lidocaine mixed 50-50 with 0.5% Marcaine was used as local anesthetic. Then the cath was carefully removed with gentle retraction. Pressure was held upon the exit site and a pressure dressing applied. The patient was then moved over to bed and placed in the head of bed elevation position. She was taken to the recovery room in satisfactory condition without apparent complication. Stat portable chest x-ray is pending. Specimens none. Drains none. Blood loss minimal. Ky Richter M.D., F.A.C.S. Type of Anesthesia:: Local MAC Anesthesiologist: Bennie Pizano
--- NOTE | 2019-06-06 11:07 | RAD_ITS ---
STUDY: X-RAY CHEST REASON FOR EXAM: Female, 68 years old. Post hemodialysis catheter placement. TECHNIQUE: Single AP portable view of the chest. COMPARISON: 04 June 2019. FINDINGS: Left hemodialysis catheter tip overlies the mid SVC in normal position. The lungs are clear and expanded. There is no demonstrated pleural abnormality. Normal size heart. Normal mediastinum and wayne. Normal visualized pulmonary arteries. Normal visualized aortic arch and descending thoracic aorta. Normal visualized thoracic spine. Normal visualized ribs, clavicles, and shoulders. There is no demonstrated abnormality of the visualized soft tissue structures of the upper abdomen. RAD/Chest 1 View (Portable) IMPRESSION: Left hemodialysis catheter in normal position with no evidence of pneumothorax. Electronically Signed: Dale Ferrari DO at 12:07 EDT , Service support ,
--- NOTE | 2019-06-06 11:56 | DCINST_ITS ---
- Discharge Diagnoses Current Active Problems: Current Active and Chronic Problems (Last Reviewed 12/14/18 @ 07:17 by Joshua Strickland MD) (1) Acute Sepsis secondary to Complicated Pseudomonas UTI secondary to Failed Self-Catheterization and History of Hydronephrosis, Hydroureter w/ prior Ureteral stents (2) Acute kidney injury on CKD stage IV, Secondary to #1, complicated Pseudomonas UTI with hydronephrosis, hydroureter and failure to perform self catheterization as recommended (3) Metabolic Acidosis, Secondary to acute presentation, renal failure (4) Hypokalemia (5) Hypomagnesia (6) Hypertension (7) Diarrhea, Unclear Etiology (Negative clostridium difficile evaluation) (8) AOCD (9) Chronic Asthma You will use the following diet at home:: Renal (restricted protein/sodium) Your food should be the consistency of: Regular Your liquids should be the consistency of: Regular/Thin Discharge Activity: - - Advise caution given recent access placement until cleared for more regular activity per Dr. Matthews. Continue morton catheter until o therwise removed per Dr. Strickland. May resume sexual activity in: - - May resume once cleared per Dr. Strickland. Weight Bearing Status: Weight bearing as tolerated Call your doctor if you observe: Fever of 101 or Higher, Inability to urinate - Lack of urine output or irregular appearance if morton catheter bag., Inability to have a bowel movement, Shortness of breath, Dizziness, Fainting spells, Swelling in the ankles, Chest pain, Uncontrolled pain Catheter: Morton to leg bag Instructions: Treatment Options for Kidney Failure, Coping with Kidney Failure, Chronic Kidney Disease, Understanding Urinary Tract Infections (UTIs), Self- Catheterization for Women Additional Instructions: Please have repeat basic metabolic panel with Dr. Matthews at dialysis. Allergies/Adverse Reactions: Allergies pravastatin Allergy (Verified 05/30/19 20:43) Chest tightness sulfamethoxazole [From Bactrim] Allergy (Verified 05/30/19 20:43) Shortness of breath trimethoprim [From Bactrim] Allergy (Verified 05/30/19 20:43) Shortness of breath methylprednisolone Adverse Reaction (Verified 05/30/19 20:43) Pain in joints novacaine Allergy (Uncoded 05/30/19 20:43) Unknown Medications to take at Discharge albuterol sulfate HFA 90 mcg/actuation aerosol inhaler 1 puff INHALATION Q6H PRN 07/25/18 Metoprolol Tartrate [Lopressor (beta dustin)] 25 mg PO BID 01/27/19 Amlodipine [Norvasc] 5 mg PO DAILY #30 tab 06/06/19 Folic Acid/Vitamin B Comp W-C [Nephrocaps, Renaphro] 1 cap PO DAILY@1200 #30 cap 06/06/19 Loperamide [Imodium] 2 mg PO Q2H PRN PRN #20 cap 06/06/19 The following prescriptions were given: Loperamide [Imodium] 2 mg PO Q2H PRN PRN #20 cap PRN Reason: loose stools, max 8 mg/day Transmission Status: Pending to [id number] Folic Acid/Vitamin B Comp W-C [Nephrocaps, Renaphro] 1 cap PO DAILY@1200 #30 cap Transmission Status: Pending to [id number] Amlodipine [Norvasc] 5 mg PO DAILY #30 tab Transmission Status: Pending to [id number] Primary Care Physician: Gerardo García Chi, MD [Primary Care Provider] - Please follow up with your Primary Care Physician in: Follow-up within 3-5 days. Test Results: Test results from this visit will be discussed in further detail at your follow- up appointment, if applicable. Please Follow Up With: Luz Maria Matthews DO When: Follow-up for planned HD Sunday as well as office follow-up 3-5 days. Please Follow Up With: Ky Richter MD When: Follow-up per Dr. Matthews discretion for further dialysis access evaluation. Please Follow Up With: Joshua Strickland MD When: Follow-up within 1 week. Proposed Discharge Date: 06/06/19
--- NOTE | 2019-06-06 12:06 | DS.PCM_ITS ---
Discharge Date and Diagnosis - Problem List Patient Problems: Active and Suspected Problems (Last Reviewed 12/14/18 @ 07:17 by Joshua Strickland MD) LULY (acute kidney injury) (Acute) Date of Admission: 05/30/19 Date of Discharge: 06/06/19 - Primary Discharge Diagnosis Active and Suspected Problems (Last Reviewed 12/14/18 @ 07:17 by Joshua Strickland MD) (1) Acute Sepsis secondary to Complicated Pseudomonas UTI secondary to Failed Self-Catheterization and History of Hydronephrosis, Hydroureter w/ prior Ureteral stents (2) Acute kidney injury on CKD stage IV, Secondary to #1, complicated Pseudomonas UTI with hydronephrosis, hydroureter and failure to perform self catheterization as recommended (3) Metabolic Acidosis, Secondary to acute presentation, renal failure (4) Hypokalemia (5) Hypomagnesia (6) Hypertension (7) Diarrhea, Unclear Etiology (Negative clostridium difficile evaluation) (8) AOCD (9) Chronic Asthma - Secondary Discharge Diagnosis Chronic Problems (Last Reviewed 12/14/18 @ 07:17 by Joshua Strickland MD) Cervical cancer (Chronic) Bilateral hydronephrosis (Chronic) worsening. Hyponatremia (Chronic) Hyperlipidemia (Chronic) HTN (hypertension) (Chronic) Mild intermittent asthma (Chronic) Hospital Course and Treatment Imaging Results: 06/06/19 10:30 O.R. Fluoro for C-Arm [RAD] Urgent 06/06/19 11:07 CXR [Chest 1 View (Portable)] [RAD] Urgent Dr. Goddard Infectious disease Dr. Matthews Nephrology Dr. Richter Surgery Dr. Strickland Urology Operations: - - 05/31/19 Ultrasound-guided right IJ temporary dialysis catheter insertion, 06/04/19 19 cm pre-curved right internal jugular double-lumen hemodialysis catheter placement, 06/06/19 Ultrasound-guided left internal jugular pre-curved 23 cm palindrome catheter placement, removal right internal jugular palindrome catheter. Procedures: EKG Summary of Care Provided: The patient is a 68 y/o F w/ PMHx: AOCD, CKD HTN, HLD, Asthma, Hx Cervical CA s/p hysterectomy and radiation complicated by urethral strictures, recurrent UTIs, history of chronic BL hydronephrosis and hydroureter w/ ureteral stent placements with recent evaluation 04/23/19 with recommendation following TID self- catheterization w/ 05/20/19 cipro regimen secondary to PCP Dx Pseudomonas UTI Dx who presented to the [facility] ED on 05/30/19 with ongoing nausea, fever. Upon presentation patient with WBC 22.3, tachycardic, febrile. patient with history prior to presentation of bilateral ureteral stents placed on 05/07/19 recommended self-catheterization at that time but noncompliant with PCP follow-up and initiation of ciprofloxacin on 05/20/19; however, cultures with no resistance, Morton catheter had been placed and will need to be continued per Urology request with attempts at d/c planned at follow-up with repeat attempts for self- catheterization training at that point. ID consulted given complicated UTI presentation, had been treated with zosyn upon presentation, 06/03/19 transitioned to cefepime with infectious disease noting completion of therapy. Patient w/ LULY on CKD stage IV Upon presentation w/ admission BUN/Cr 78/8.23, prior baseline creatinine noted to be 2.5-2.5. Patient was hydrated, held nephrotoxic medications, morton catheter placed, 05/31/19 temporary IJ HD catheter placed w/ HD performed secondary to poor UOP, LULY. Renal US w/ numerous bilateral renal cysts and bilateral hydronephrosis, possible dilated calyces bilaterally. Nephrology consulted and following w/ 06/02/19 3 hour HD session, no HD 06/03/19, repeat 06/04/19 BUN/Cr worsened 24/4.47, decreased UOP from day prior with planned repeat HD needs; however, patient underwent tunneled dialysis catheter placement 06/04/19 evening w/ then planned HD today, 06/05/19; however access unable to be used. Patient then underwent 06/06/19 Ultrasound-guided left internal jugular pre-curved 23 cm palindrome catheter placement, removal right internal jugular palindrome catheter. Patient was following set up for dialysis and cleared for discharge following with planned outpatient dialysis Sunday morning with a Sunday regimen with follow-up with primary care physician, urologist with Morton catheter continuation, Dr. Matthews at follow-up dialysis as well as outpatient, primary care physician in addition to follow-up with surgeon per discretion of fruit culler for continued access planning. DAY OF DISCHARGE PROGRESS NOTE: Subjective: Patient without acute event overnight per self and nursing report. Patient denies fever, chills, nausea, emesis, abdominal pain, chest pain or dyspnea. Patient underwent AM access placement and removal of prior secondary to malfunction. HD being arranged which was discussed with patient and Surveillance Director. Patient agreeable to discharge to home and understands planned Sunday HD start. Patient will be discharged with follow-up with primary care physician within 3-5 days in addition to Nephrology, Urology and Surgery per Nephrology discretion for future access planning. Objective: T 98.2, heart rate 72, BP 136/75, respiratory rate 16, 97% on room air. Physical Examination: General: awake, alert, oriented x 3 and cooperative, seated upright in bed in no apparent distress, recent OR return. Skin: normal color, turgor, no icterus, cyanosis, s/p recent L sided access placed, removal of R sided tunnelled catheter. HEENT: AT/NC, EOMI, PERRLA, MMM, s/p recent L sided access placed, removal of R sided tunnelled catheter. Lungs: CTA bilaterally, moderate effort, moderate decrease BL bases, no rales, ronchi or wheezing. Heart: Regular rate and rhythm; no gallop, rub audible. Abdomen: soft, NTTP, ND, normal BS. Extremities: no cyanosis, clubbing, or edema. Neurological: patient awake, alert, oriented x 3; cognitive function intact; pupils equally reactive to light and accomodation; cranial nerves II-XII grossly normal, moving all 4 extremities, no focal deficits, strength mildly to moderately globally decreased. Psychiatric: affect appears normal, eager for discharge, no acute evidence of depressive or anxiety feelings. Assessment and Plan: Please see hospital summary above. Patient Problems: Active and Suspected Problems (Last Reviewed 12/14/18 @ 07:17 by Joshua Strickland MD) LULY (acute kidney injury) (Acute) - Physical Exam Vital Signs Temp Pulse Resp BP Pulse Ox 98.2 F 72 16 136/75 H 97 06/06/19 11:06/06/19 11:06/06/19 11:06/06/19 11:06/06/19 11:26 Oxygen Delivery Method Room Air Weight: 161 lb 13.109 oz Body Mass Index (BMI) 24.5 Finger Stick Blood Glucose 92 Intake and Output for Last 24 Hours 07/06/05/19 06/06/19 23:59 23:59 23:59 Intake Total 1575 / 2311 2675 / 2675 350 / 350 Output Total 1450 / 1825 1900 / 1900 450 / 450 Balance 125 / 486 775 / 775 -100 / -100 Microbiology Past 72 Hours 05/30/19 20:10 Blood Culture - Final Blood Culture (Wb) - Anticubital Right No growth in 5 days. 05/30/19 20:15 Blood Culture - Final Blood Culture (Wb) - Anticubital Right No growth in 5 days. Laboratory Tests Past 24 Hrs 06/06/19 06/06/19 05:25 05:25 WBC 13.1 H RBC 2.80 L Hgb 8.9 L Hct 27.5 L MCV 98.2 MCH 31.8 MCHC 32.4 RDW Std Deviation 53.7 H RDW Coeff of Dewey 14.8 H Plt Count 352 MPV 10.7 Immature Gran % (Auto) 1.300 H Neut % (Auto) 58.6 Lymph % (Auto) 29.4 Pleasants % (Auto) 6.5 Eos % (Auto) 3.7 Baso % (Auto) 0.5 Absolute Neuts (auto) 7.7 Absolute Lymphs (auto) 3.85 Total Counted Not Reportable Sodium 140 Potassium 3.4 L Chloride 108 H Carbon Dioxide 22.0 Anion Gap 10 BUN 36 H Creatinine 6.08 H Estim Creat Clear Calc 9.18 Est GFR (MDRD) Af Amer 9 L Est GFR (MDRD) Non-Af 7 L BUN/Creatinine Ratio 5.9 L Glucose 79 Calcium 7.4 L Discharge Activity: - - Advise caution given recent access placement until cleared for more regular activity per Dr. Matthews. Continue morton catheter until otherwise removed per Dr. Strickland. May resume sexual activity in: - - May resume once cleared per Dr. Strickland. Weight Bearing Status: Weight bearing as tolerated Call your doctor if you observe: Fever of 101 or Higher, Inability to urinate - Lack of urine output or irregular appearance if morton catheter bag., Inability to have a bowel movement, Shortness of breath, Dizziness, Fainting spells, Swelling in the ankles, Chest pain, Uncontrolled pain Catheter: Morton to leg bag Home Medications: Medications to take at Discharge albuterol sulfate HFA 90 mcg/actuation aerosol inhaler 1 puff INHALATION Q6H PRN 07/25/18 Metoprolol Tartrate [Lopressor (beta dustin)] 25 mg PO BID 01/27/19 Amlodipine [Norvasc] 5 mg PO DAILY #30 tab 06/06/19 Folic Acid/Vitamin B Comp W-C [Nephrocaps, Renaphro] 1 cap PO DAILY@1200 #30 cap 06/06/19 Loperamide [Imodium] 2 mg PO Q2H PRN PRN #20 cap 06/06/19 Following Prescrptions Were Given to Patient: Loperamide [Imodium] 2 mg PO Q2H PRN PRN #20 cap PRN Reason: loose stools, max 8 mg/day Transmission Status: Received by [id number] Folic Acid/Vitamin B Comp W-C [Nephrocaps, Renaphro] 1 cap PO DAILY@1200 #30 cap Transmission Status: Received by [id number] Amlodipine [Norvasc] 5 mg PO DAILY #30 tab Transmission Status: Received by [id number] Primary Care Physician: Gerardo García Chi, MD [Primary Care Provider] - Please follow up with your Primary Care Physician in: Follow-up within 3-5 days. Please Follow Up With: Luz Maria Matthews DO When: Follow-up for planned HD Sunday as well as office follow-up 3-5 days. Please Follow Up With: Ky Richter MD When: Follow-up per Dr. Matthews discretion for further dialysis access evaluation. Please Follow Up With: Joshua Strickland MD When: Follow-up within 1 week. Patient Instructions: Self-Catheterization for Women, Understanding Urinary Tract Infections (UTIs), Treatment Options for Kidney Failure, Coping with Kidney Failure, Chronic Kidney Disease Disposition: Home Minutes spent on discharge:: 35 Patient Condition:: Fair Medical Necessity - Tobacco Use Smoking Status: Never smoker Meaningful Use Info Meaningful Use Diagnoses (Choose all that apply): None applicable Code Visit Inpatient E&M: 88859 Disch Hosp
[2019-06-06] MEDS: Heparin Injection (Vial) 5,000 UNIT/ML VIAL 5000 UNIT SC (12:19)
[2019-06-06] MEDS: Folic Acid/Vitamin B Comp W-C 1 Capsule 1 CAP PO (12:20)
[2019-06-06] MEDS: Epoetin Alfa epbx 10,000 UNITS/ML 10000 UNIT IV (14:43)
[2019-06-06] MEDS: Heparin 10,000 UNITS/10 ML Vial 4800 UNITS IV (14:44)
[2019-06-06] MEDS: Heparin 10,000 UNITS/10 ML Vial 3800 UNITS IV (14:44)
--- NOTE | 2019-06-06 16:35 | DIALYSIS ---
hemodialysis completed x 3.5 hrs. Access via left chest tunneled HD cath. Lines reversed. report to Charmaine OCONNELL. no fluid removal. See Hd flowsheet on chart.
--- NOTE | 2019-06-09 14:28 | CASEMGMT ---
ANISH CM DC PHONE CALL DC DATE: 06/06/19 DC Disposition: Home with OP Hemodialysis Diagnosis on Discharge: ARF LACE/STRATA: 17/ Attempted call to pt's phone. No answer, and voicemail did not have name identifier. Sarah ZHOUN RN ACM
== END 2019-06-06 17:52 | disposition home or self-care (01) | DRG 872 ==
LOC: ED 20:21 → PCU 22:46
PROVIDERS: Family Medicine; Internal Medicine Nephrology; Student in an Organized Health Care Education/Training Program; Admitting Provider Internal Medicine; Emergency Provider Emergency Medicine; Family Provider Family Medicine Geriatric Medicine; PCP Family Medicine Geriatric Medicine; Visit Provider Surgery
PROC: 0JH63XZ Insertion of Tunneled Vascular Access Device into Chest Subcutaneous Tissue and Fascia, Percutaneous Approach (ICD-10-PCS; principal; 2019-06-04 16:15)
PROC: 0JPT3XZ Removal of Tunneled Vascular Access Device from Trunk Subcutaneous Tissue and Fascia, Percutaneous Approach (ICD-10-PCS; principal; 2019-06-06 11:15)
DX: A41.52 Sepsis due to Pseudomonas (principal); N17.9 Acute kidney failure, unspecified; E87.2 Acidosis; E87.1 Hypo-osmolality and hyponatremia; N13.6 Pyonephrosis; N18.4 Chronic kidney disease, stage 4 (severe); T82.9XXA Unspecified complication of cardiac and vascular prosthetic device, implant and graft, initial encounter; D63.1 Anemia in chronic kidney disease; E78.5 Hyperlipidemia, unspecified; E83.42 Hypomagnesemia; E87.6 Hypokalemia; I12.9 Hypertensive chronic kidney disease with stage 1 through stage 4 chronic kidney disease, or unspecified chronic kidney disease; Z85.41 Personal history of malignant neoplasm of cervix uteri; R19.7 Diarrhea, unspecified; J45.20 Mild intermittent asthma, uncomplicated; Z90.710 Acquired absence of both cervix and uterus; Y84.2 Radiological procedure and radiotherapy as the cause of abnormal reaction of the patient, or of later complication, without mention of misadventure at the time of the procedure; Z87.440 Personal history of urinary (tract) infections
CPT/HCPCS: 36415; 71045; 76000; 76770; 77001; 80048; 80053; 80069; 81001; 83605; 83690; 83735; 84484; 85025; 86704; 86706; 87040; 87077; 87086; 87088; 87184; 87186; 87340; 87493; 90937; 97110; 97162; 97165; 97530; 97802; 99285; J2997; J7030; J7040; J7050; A4216; C1750; C1752; G0257; J2405; Q5106

== ENCOUNTER → 2019-06-30 13:02 | Outpatient (CLI) | payer MEDICARE, SELFPAY ==
[2019-06-06 09:19] VITALS: BMI 24.5
[2019-06-30 17:20] LABS: Absolute Lymphocyte Count 6.86 X10^3/uL (0.83-4.51); Absolute Neutrophil Count 9.5 X10^3/uL (2.0-7.7); Basophil% 0.6 % (0-1); Eosinophil# 0.15 X10^3/uL; Eosinophils% 0.9 % (0-5); Hematocrit 32.3 % (37-47); Hemoglobin 9.6 g/dL (12.0-15.0); Lymphocyte # 6.86 X10^3/ul (4.0); Lymphocyte % 39.1 % (19-41); Mean Corp Hgb Conc 29.7 g/dL (32-36); Mean Corpuscular Hgb 29.2 pg (27.0-32.0); Mean Corpuscular Volume 98.2 fL (81-99); Mean Platelet Vol. 10.9 fl (6.2-12.0); Monocyte# 0.79 X10^3/uL; Monocyte% 4.5 % (0-10); NRBC Flagged by Analyzer 0 % (0-5); Neutrophil # 9.48 X10^3/uL (2.7-7.7); Neutrophil % 53.9 % (47-70); POSITIVE DIFFERENTIAL YES; POSITIVE MORPHOLOGY YES; Platelet Count 539 K/mm3 (150-450); RBC Distribution Width SD 50.2 fl (35.1-43.9); Red Blood Count 3.29 M/mm3 (4.2-5.4); White Blood Count 17.6 K/mm3 (4.4-11.0)
[2019-06-30 17:43] LABS: Vitamin D,25 Hydroxy 26.5 ng/mL (29.95-100.01)
[2019-06-30 17:50] LABS: ALB/GLOB Ratio 0.2 RATIO (0.9-2.4); AST(SGOT) 20 U/L (15-37); Alanine Aminotransfer ALT/SGPT 17 U/L (13-56); Albumin, Serum 1.8 g/dL (3.2-5.0); Alkaline Phosphatase 99 U/L (45-117); Anion Gap 12 (5-15); BUN 19 mg/dL (7-18); Calcium,Total 8.4 mg/dL (8.5-10.1); Chloride 100 mmol/L (98-107); Creatinine, Serum 3.82 mg/dL (0.55-1.02); EST Glomerular Filtration Rate 13 mL/min (>60); Est Glom Filt Rate - Afr Amer 15 mL/min (>60); Globulin 7.3 g/dL (2.2-4.2); Glucose 101 mg/dL (74-106); Potassium 3.9 mmol/L (3.5-5.1); Protein, Total 9.1 g/dL (6.4-8.2); Sodium Level 138 mmol/L (136-145); Thyroid Stim Hormone (TSH) 1.52 uIU/mL (0.358-3.74)
[2019-06-30 20:15] LABS: Differential Indicated SCAN CRITERIA MET
[2019-06-30 20:16] LABS: Anisocytosis 1+; Atypical Lymphocyte 1+ %; Hypochromasia 1+; Platelet Estimate SLT INC (ADEQ)
[2019-07-01 15:35] LABS: Pathologist Review Reviewed
== END ==
LOC: POLAB3 13:03
PROVIDERS: Family Provider Family Medicine Geriatric Medicine; PCP Family Medicine Geriatric Medicine; Visit Provider Family Medicine Geriatric Medicine
DX: N39.0 Urinary tract infection, site not specified (principal); E55.0 Rickets, active; I10 Essential (primary) hypertension
CPT/HCPCS: 36415; 80053; 82306; 84443; 85025; 87077; 87086; 87088; 87186

== ENCOUNTER → 2019-07-11 | Outpatient (CLI) | payer MEDICARE, SELFPAY ==
[2019-06-06 09:19] VITALS: BMI 24.5
--- NOTE | 2019-07-11 09:07 | VDUE_ITS ---
Reason For Study: ESRD Right Arm Left Arm Right Cephalic Vein at the wrist measures Left Cephalic Vein at the wrist measures 0.13 x 0.13 cm. 0.06 x 0.07 cm. Right Cephalic Vein in the forearm measures Left Cephalic Vein in the forearm measures 0.15 x 0.14 cm. 0.14 x 0.15 cm. Right Cephalic Vein below antecub measures Left Cephalic Vein below antecub measures 0.14 x 0.14 cm. 0.11 x 0.13 cm. Right Cephalic Vein above antecub measures Left Cephalic Vein above antecub measures 0.22 x 0.27 cm. 0.09 x 0.08 cm. Bright intraluminal echoes consistent with Left Cephalic Vein at mid bicep measures chronic clot noted in the right cephalic vein 0.14 x 0.15 cm. above AC. Left Cephalic Vein at the shoulder measures Right Cephalic Vein mid bicep measures 0.20 x 0.20 x 0.19 cm. 0.21 cm. Basilic vein at origin measures 0.40 x 0.42 Right Cephalic Vein at the shoulder measures cm. 0.28 x 0.29 cm. Basilic vein at bicep measures 0.39 x 0.39 Right Basilic Vein at the origin measures cm. 0.19 x 0.20 cm. Basilic vein above antecub measures 0.29 x Right Basilic Vein mid bicep measures 0.13 x 0.32 cm. 0.13 cm. Left Brachial artery measures 0.30 x 0.32 cm Right Basilic Vein above antecub measures with a velocity of 75.1 cm/sec. 0.19 x 0.21 cm. Left Radial artery measures 0.16 x 0.16 cm Right Brachial artery measures 0.37 x 0.34 cm with a velocity of 38.8 cm/sec. with a velocity of 62.3 cm/sec. Right Radial artery measures 0.11 x 0.12 cm with a velocity of 21.5 cm/sec. Interpretation Summary Diminutive right forearm cephalic vein Chronic superficial thrombophlebitis right upper arm cephalic vein at the antecubital crease. Dininutive right upper extremity basilic vein Diminutive left upper extremity cephalic vein Adequate left upper arm basilic vein Small bilateral radial arteries Adequate diameter bilateral brachial arteries. Ordering Physician: Luz Maria Matthews Referring Physician: Gerardo García Chi Performed By: Elena Whitney RVT ?
== END | disposition home or self-care (01) ==
LOC: CVS 09:04
PROVIDERS: Family Provider Family Medicine Geriatric Medicine; PCP Family Medicine Geriatric Medicine; Referring Provider Internal Medicine Nephrology; Visit Provider Internal Medicine Nephrology
DX: Z01.818 Encounter for other preprocedural examination (principal); N18.6 End stage renal disease
CPT/HCPCS: 93970; 93971; G0365

== ENCOUNTER 2019-08-01 11:30 | Day surgery (SDC) | payer MEDICARE, SELFPAY ==
[2019-06-06 09:19] VITALS: BMI 24.5
[2019-08-01 11:49] VITALS: BP 113/71; PULSE 83; RESP 16; TEMP 36.1; O2SAT 98; BMI 23.6
[2019-08-01] MEDS: 0.9% Normal Saline 1,000 ML 30 ML IV (12:15)
[2019-08-01] MEDS: Cefazolin 2 GM in 0.9% Normal Saline 100 ML IV (13:28)
--- NOTE | 2019-08-01 13:40 | DCINST_ITS ---
Discharge Diet: No Restrictions Discharge Activity: Return to Normal Activity, May Not Drive - for 2 days. Additional Activity Instructions:: f you have a catheter, remove on ___. If you have any problems after catheter is removed, call [phone] and ask for your doctor to be paged. Please be aware that pain medications may cause nausea. You should typically eat light foods as you take your pain medication. Pain medication may cause constipation, if this is a problem for you, please discuss with your doctor. Allergies/Adverse Reactions: Allergies pravastatin Allergy (Verified 08/01/19 11:40) Chest tightness sulfamethoxazole [From Bactrim] Allergy (Verified 08/01/19 11:40) Shortness of breath trimethoprim [From Bactrim] Allergy (Verified 08/01/19 11:40) Shortness of breath methylprednisolone Adverse Reaction (Verified 08/01/19 11:40) Pain in joints novacaine Allergy (Uncoded 08/01/19 11:40) Unknown Medications to take at Discharge albuterol sulfate HFA 90 mcg/actuation aerosol inhaler 2 puff INHALATION Q6H PRN 07/25/18 Metoprolol Tartrate [Lopressor (beta dustin)] 25 mg PO BID 01/27/19 Loperamide [Imodium] 2 mg PO Q2H PRN PRN #20 cap 06/06/19 Heparin Sod,Porcine/0.9 % NaCl [Heparin 6,000 Unit/3 ml-Ns Syr] 7,000 unit IV TUTHSA 07/25/19 Amoxicillin 250 mg PO Q8H #10 tab.chew 08/01/19 The following prescriptions were given: Amoxicillin 250 mg PO Q8H #10 tab.chew Prescription Printed Primary Care Physician: Gerardo García Chi, MD [Primary Care Provider] - Test Results: Test results from this visit will be discussed in further detail at your follow- up appointment, if applicable. Please Follow Up With: Joshua Strickland MD When: please call to make an appointment.
[2019-08-01] MEDS: Lidocaine Jelly 2% 20 ML Syringe (URO-JET) 20 APPLIC (13:42)
--- NOTE | 2019-08-01 13:55 | OP.PCM_ITS ---
Report of Operation Date of Procedure: 08/01/19 Pre-Operative Diagnosis: Bilateral ureteral obstruction chronic renal insu fficiency recurrent infections Post-Operative Diagnosis: The same Surgery/Procedure Performed:: Cystoscopy, left retrograde pyelogram and interpretation fluoroscopic images, left stent placement, right retrograde pyelogram and interpretation fluoroscopic images and right stent placement. Description of Surgical Findings:: Indication this is a 68-year-old female has a history of radiation in the past she is developed severe scarring in both ureters and reflux and retention of urine and also chronic renal insufficiency and finally unfortunately developed renal failure and is on dialysis we managed her obstruction with stents and today working to change her stents to keep her kidneys drained to avoid any further infections. We talked about the risk of the procedure including infection bleeding and the risk of anesthesia. 68-year-old female was taken back to the operating room, after induction of MAC local anesthesia she was placed in dorsolithotomy position, the urethra and vaginal area were prepped and draped in usual sterile fashion, on examination she has a very anterior urethra very difficult to cannulate, went into the bladder with a 21 [place] well-lubricated cystoscope, injected lidocaine jelly into the urethra for topical lidocaine, first identified the stents they are both around each other so I grabbed the stent and the both came out as a unit together I cut off of the coiled ends and then I advanced a wire up the left stent first was able to get the wire up into the kidney the wire coiled in the kidney and then pulled the stent off the wire on the left side backloaded a Pollack catheter over the wire advanced the Pollack catheter up in the kidney injected contrast and performed a retrograde pyelogram and looked at the images to interpret the right retrograde pyelogram, once a retrograde pyelogram was performed then I put a wire back up into the Pollick catheter and then over the wire I advanced a 7 [place] by 24 cm stent once a stent was in good position in the kidney bladder I pulled the wire and the skin coiled in the kidney and bladder good position. Then the other stent was identified I put a wire up the other old stent on the right side advanced a wire up all the way up on the right side once a while coiled in the kidney there was a hydronephrotic kidney we performed a retrograde pyelogram of the right side pulled the stent down off on the right side and then over the wire I advanced the Pollack catheter did a retrograde pyelogram I then backloaded the wire through the catheter and then left the wire in place and then over the wire on the right side advance a new 7 [place] by 24 cm stent once again the stent was in good position I pulled the wire and the stent coiled in the kidney bladder good position I then drained the bladder. Patient anesthetic was reversed she was taken back to PACU in good condition plan is to see her in the office in a few weeks for just a checkup and then will see her in 6 months for another stent change. Type of Anesthesia:: Local MAC Drains: stent. - Admit VTE Documentation VTE Present on Admission: No
[2019-08-01 14:05] VITALS: BP 113/71; BP 91/70; PULSE 74; RESP 16; TEMP 36.8; O2SAT 99
[2019-08-01 14:10] VITALS: BP 106/67; BP 113/71; PULSE 75; RESP 16; O2SAT 98
[2019-08-01 14:15] VITALS: BP 100/69; BP 113/71; PULSE 74; RESP 16; O2SAT 98
[2019-08-01 14:20] VITALS: BP 113/71; BP 119/76; PULSE 72; RESP 16; TEMP 36.7; O2SAT 96
[2019-08-01 14:56] VITALS: BP 113/71
== END 2019-08-01 14:59 | disposition home or self-care (01) ==
LOC: SDC 11:31
PROVIDERS: Family Provider Family Medicine Geriatric Medicine; PCP Family Medicine Geriatric Medicine; Referring Provider Urology; Visit Provider Urology
PROC: (CPT 910; principal; 2019-08-01 13:30)
DX: N13.1 Hydronephrosis with ureteral stricture, not elsewhere classified (principal); I12.9 Hypertensive chronic kidney disease with stage 1 through stage 4 chronic kidney disease, or unspecified chronic kidney disease; N18.5 Chronic kidney disease, stage 5; J45.20 Mild intermittent asthma, uncomplicated; D63.1 Anemia in chronic kidney disease; E78.00 Pure hypercholesterolemia, unspecified; Z87.442 Personal history of urinary calculi; Z99.2 Dependence on renal dialysis; Z87.440 Personal history of urinary (tract) infections; Z85.41 Personal history of malignant neoplasm of cervix uteri; Z87.891 Personal history of nicotine dependence; Z86.718 Personal history of other venous thrombosis and embolism; Z79.51 Long term (current) use of inhaled steroids; Z79.899 Other long term (current) drug therapy
CPT/HCPCS: 52005; 52332; 76000; J7030; J7120; C1769; C1874; J2405

== ENCOUNTER → 2019-08-11 | Outpatient (CLI) | payer MEDICARE, SELFPAY ==
[2019-08-01 11:49] VITALS: BMI 23.6
--- NOTE | 2019-08-11 16:45 | RAD_ITS ---
STUDY: X-RAY CHEST REASON FOR EXAM: Female, 68 years old. Chest pain and shortness of breath TECHNIQUE: PA and lateral views of the chest. COMPARISON: Prior study of 06/06/2019 FINDINGS: There is a left-sided dialysis catheter with tip projecting over the mid SVC. The lungs are clear and expanded. There is no demonstrated pleural abnormality. Normal size heart. Normal mediastinum and wayne. Normal visualized pulmonary arteries. Normal visualized aortic arch and descending thoracic aorta. Normal visualized thoracic spine. Normal visualized ribs, clavicles, and shoulders. There is no demonstrated abnormality of the visualized soft tissue structures of the upper abdomen. RAD/Chest PA and Lateral IMPRESSION: Left-sided dialysis catheter with tip projecting over the mid SVC. No acute cardiopulmonary disease process is seen. Findings are stable in the interval. Electronically Signed: Adilson Farley MD at 19:46 EDT , Service support ,
[2019-08-11 16:55] LABS: Absolute Lymphocyte Count 7.12 X10^3/uL (0.83-4.51); Absolute Neutrophil Count 4.3 X10^3/uL (2.0-7.7); Basophil% 0.8 % (0-1); Eosinophil# 0.24 X10^3/uL; Eosinophils% 1.9 % (0-5); Hematocrit 39.6 % (37-47); Hemoglobin 11.9 g/dL (12.0-15.0); Lymphocyte # 7.12 X10^3/ul (4.0); Lymphocyte % 56.6 % (19-41); Mean Corp Hgb Conc 30.1 g/dL (32-36); Mean Corpuscular Hgb 28.3 pg (27.0-32.0); Mean Corpuscular Volume 94.1 fL (81-99); Mean Platelet Vol. 10.9 fl (6.2-12.0); Monocyte# 0.78 X10^3/uL; Monocyte% 6.2 % (0-10); NRBC Flagged by Analyzer 0 % (0-5); Neutrophil # 4.32 X10^3/uL (2.7-7.7); Neutrophil % 34.3 % (47-70); POSITIVE DIFFERENTIAL YES; Platelet Count 320 K/mm3 (150-450); RBC Distribution Width CV 13.5 % (11.6-14.6); RBC Distribution Width SD 46.4 fl (35.1-43.9); Red Blood Count 4.21 M/mm3 (4.2-5.4); White Blood Count 12.6 K/mm3 (4.4-11.0)
[2019-08-11 17:18] LABS: D-Dimer Quantitative (DVT/PE) 0.77 FEU/ug/m (0.27-0.49)
[2019-08-11 17:32] LABS: Differential Indicated SCAN CRITERIA MET
[2019-08-11 17:33] LABS: Platelet Estimate ADEQUATE (ADEQ)
[2019-08-11 17:34] LABS: Anisocytosis RARE; Macrocytosis RARE
[2019-08-11 17:36] LABS: Anion Gap 6 (5-15); BUN 19 mg/dL (7-18); BUN/Creat Ratio 6.7 RATIO (10-20); CPK Total, Creatine Kinase 22 U/L (26-192); Calcium,Total 8.4 mg/dL (8.5-10.1); Chloride 102 mmol/L (98-107); Creatinine, Serum 2.85 mg/dL (0.55-1.02); EST Glomerular Filtration Rate 18 mL/min (>60); Est Glom Filt Rate - Afr Amer 21 mL/min (>60); Glucose 92 mg/dL (74-106); Potassium 3.4 mmol/L (3.5-5.1); Sodium Level 137 mmol/L (136-145)
[2019-08-11 17:41] LABS: BNP,B-Type NATRIURETIC PEPTIDE 43.5 pg/mL (0-100)
[2019-08-12 14:40] LABS: Pathologist Review Reviewed
[2019-08-13 12:44] LABS: Myoglobin, Serum 25 ng/mL (25-58)
== END | disposition home or self-care (01) ==
LOC: POLAB3 16:10 → RAD 16:38
PROVIDERS: Family Provider Family Medicine Geriatric Medicine; PCP Family Medicine Geriatric Medicine; Referring Provider Family Medicine Geriatric Medicine; Visit Provider Family Medicine Geriatric Medicine
DX: R06.02 Shortness of breath (principal); R07.9 Chest pain, unspecified; R06.89 Other abnormalities of breathing
CPT/HCPCS: 36415; 71046; 80048; 82550; 83874; 83880; 84484; 85025; 85379

== ENCOUNTER → 2019-09-03 | Outpatient (CLI) | payer MEDICARE, SELFPAY ==
[2019-09-03 20:39] LABS: Probe Check PASS; Staph aureus DNA By PCR POSITIVE (Negative)
[2019-09-04 09:45] LABS: M R Staph aureus DNA By PCR POSITIVE (Negative)
== END | disposition home or self-care (01) ==
LOC: LABSPEC 16:10
PROVIDERS: Family Provider Family Medicine Geriatric Medicine; PCP Family Medicine Geriatric Medicine; Visit Provider Family Medicine Geriatric Medicine
DX: S81.809A Unspecified open wound, unspecified lower leg, initial encounter (principal); B95.62 Methicillin resistant Staphylococcus aureus infection as the cause of diseases classified elsewhere
CPT/HCPCS: 87070; 87077; 87186; 87205; 87640

== ENCOUNTER → 2019-10-02 | Outpatient (CLI) | payer MEDICARE, SELFPAY ==
[2019-10-02 15:48] VITALS: BMI 23.9
[2019-10-02 16:37] LABS: Absolute Neutrophil Count 6.5 X10^3/uL (2.0-7.7); Basophil# 0.06 X10^3/uL; Basophil% 0.4 % (0-1); Eosinophil# 0.19 X10^3/uL; Eosinophils% 1.3 % (0-5); Lymphocyte % 48.7 % (19-41); Mean Corp Hgb Conc 31.7 g/dL (32-36); Mean Corpuscular Hgb 28.8 pg (27.0-32.0); Mean Corpuscular Volume 90.7 fL (81-99); Mean Platelet Vol. 10.6 fl (6.2-12.0); Monocyte# 0.78 X10^3/uL; Monocyte% 5.3 % (0-10); NRBC Flagged by Analyzer 0 % (0-5); Neutrophil # 6.48 X10^3/uL (2.7-7.7); Neutrophil % 43.9 % (47-70); POSITIVE DIFFERENTIAL YES; POSITIVE MORPHOLOGY YES; Platelet Count 419 K/mm3 (150-450); RBC Distribution Width CV 15.2 % (11.6-14.6); RBC Distribution Width SD 49.9 fl (35.1-43.9); Red Blood Count 4.52 M/mm3 (4.2-5.4); White Blood Count 14.8 K/mm3 (4.4-11.0)
[2019-10-02 16:40] LABS: Differential Indicated SCAN CRITERIA MET
[2019-10-02 16:57] LABS: ALB/GLOB Ratio 0.4 RATIO (0.9-2.4); AST(SGOT) 14 U/L (15-37); Alanine Aminotransfer ALT/SGPT 13 U/L (13-56); Albumin, Serum 2.6 g/dL (3.2-5.0); Alkaline Phosphatase 85 U/L (45-117); Anion Gap 10 (5-15); BUN 28 mg/dL (7-18); BUN/Creat Ratio 7.3 RATIO (10-20); Calcium,Total 8.9 mg/dL (8.5-10.1); Chloride 98 mmol/L (98-107); Creatinine, Serum 3.86 mg/dL (0.55-1.02); EST Glomerular Filtration Rate 12 mL/min (>60); Est Glom Filt Rate - Afr Amer 15 mL/min (>60); Globulin 6.2 g/dL (2.2-4.2); Glucose 96 mg/dL (74-106); Magnesium 1.7 mg/dL (1.6-2.6); Phosphorus 4.5 mg/dL (2.5-4.9); Potassium 3.8 mmol/L (3.5-5.1); Protein, Total 8.8 g/dL (6.4-8.2); Sodium Level 135 mmol/L (136-145)
[2019-10-02 16:58] LABS: Differential Comment SCANNED
[2019-10-02 18:16] LABS: Probe Check PASS; Staph aureus DNA By PCR POSITIVE (Negative)
[2019-10-02 18:17] LABS: M R Staph aureus DNA By PCR POSITIVE (Negative)
== END | disposition home or self-care (01) ==
LOC: POLAB3 15:48
PROVIDERS: Family Provider Family Medicine Geriatric Medicine; PCP Family Medicine Geriatric Medicine; Visit Provider Family Medicine Geriatric Medicine
DX: R25.2 Cramp and spasm (principal); B95.62 Methicillin resistant Staphylococcus aureus infection as the cause of diseases classified elsewhere
CPT/HCPCS: 36415; 80053; 83735; 84100; 85025; 87070; 87077; 87186; 87205; 87640

== ENCOUNTER → 2019-10-23 15:29 | Outpatient (CLI) | payer MEDICARE, SELFPAY ==
[2019-10-02 15:48] VITALS: BMI 23.9
--- NOTE | 2019-10-23 15:34 | RAD_ITS ---
STUDY: X-RAY - RIGHT HAND REASON FOR EXAM: Female, 69 years old. Swelling, no known injury TECHNIQUE: 3 view(s) of the hand. COMPARISON: None. FINDINGS: Normal radiocarpal articulation. Normal distal radioulnar joint. Normal visualized carpal bones. Normal carpal articulations Normal carpometacarpal articulation of the thumb. Normal second through fifth carpometacarpal joints. Normal metacarpi. Normal metacarpophalangeal joint of the thumb. Normal interphalangeal joint of the thumb. Normal proximal and distal phalanges of the thumb. Normal metacarpophalangeal joints of the second through fifth fingers. Normal proximal and distal interphalangeal joints of the second through fifth fingers. Normal phalanges of the second through fifth fingers. There is soft tissue swelling overlying the metacarpophalangeal regions on the lateral projection. RAD/Hand Min 3 Views IMPRESSION: Soft tissue swelling. The osseous structures and articular surfaces of the right hand appear within normal limits. Electronically Signed: Adilson Farley MD at 19:56 EST , Service support ,
[2019-10-23 16:52] LABS: Absolute Lymphocyte Count 7.18 X10^3/uL (0.83-4.51); Absolute Neutrophil Count 7.8 X10^3/uL (2.0-7.7); Basophil# 0.06 X10^3/uL; Basophil% 0.4 % (0-1); Eosinophil# 0.16 X10^3/uL; Hematocrit 41.3 % (37-47); Hemoglobin 13.1 g/dL (12.0-15.0); Lymphocyte # 7.18 X10^3/ul (4.0); Lymphocyte % 44.5 % (19-41); Mean Corp Hgb Conc 31.7 g/dL (32-36); Mean Corpuscular Volume 91.6 fL (81-99); Mean Platelet Vol. 10.9 fl (6.2-12.0); Monocyte# 0.86 X10^3/uL; Monocyte% 5.3 % (0-10); NRBC Flagged by Analyzer 0 % (0-5); Neutrophil # 7.78 X10^3/uL (2.7-7.7); Neutrophil % 48.3 % (47-70); POSITIVE DIFFERENTIAL YES; POSITIVE MORPHOLOGY YES; Platelet Count 385 K/mm3 (150-450); RBC Distribution Width CV 15.8 % (11.6-14.6); RBC Distribution Width SD 53.1 fl (35.1-43.9); Red Blood Count 4.51 M/mm3 (4.2-5.4); White Blood Count 16.1 K/mm3 (4.4-11.0)
[2019-10-23 16:56] LABS: Differential Indicated SCAN CRITERIA MET
[2019-10-23 17:32] LABS: Anion Gap 6 (5-15); BUN 26 mg/dL (7-18); BUN/Creat Ratio 8.4 RATIO (10-20); Calcium,Total 8.7 mg/dL (8.5-10.1); Chloride 100 mmol/L (98-107); Creatinine, Serum 3.11 mg/dL (0.55-1.02); EST Glomerular Filtration Rate 16 mL/min (>60); Est Glom Filt Rate - Afr Amer 19 mL/min (>60); Glucose 98 mg/dL (74-106); Potassium 3.8 mmol/L (3.5-5.1); Sodium Level 134 mmol/L (136-145); Uric Acid 4.8 mg/dL (2.6-6.0)
[2019-10-23 18:04] LABS: Erythrocyte Sedimentation Rate 115 mm/hr (0-30)
[2019-10-23 18:10] LABS: Anisocytosis RARE; Macrocytosis RARE; Platelet Estimate ADEQUATE (ADEQ); Platelet Morphology LARGE; Red Cell Morphology N CHROM NORMAL (NORM C&C)
[2019-10-24 14:29] LABS: Pathologist Review Reviewed
== END ==
LOC: POLAB3 15:30 → RAD 15:33
PROVIDERS: Family Provider Family Medicine Geriatric Medicine; PCP Family Medicine Geriatric Medicine; Referring Provider Family Medicine Geriatric Medicine; Visit Provider Family Medicine Geriatric Medicine
DX: R79.9 Abnormal finding of blood chemistry, unspecified (principal); M79.641 Pain in right hand
CPT/HCPCS: 36415; 73130; 80048; 84550; 85025; 85652; 86140

== ENCOUNTER → 2019-11-03 11:20 | Outpatient (CLI) | payer MEDICARE, SELFPAY ==
[2019-10-02 15:48] VITALS: BMI 23.9
[2019-11-03 13:01] LABS: Albumin, Serum 2.7 g/dL (3.2-5.0); BUN 38 mg/dL (7-18); BUN/Creat Ratio 13.7 RATIO (10-20); Chloride 104 mmol/L (98-107); Creatinine, Serum 2.78 mg/dL (0.55-1.02); EST Glomerular Filtration Rate 18 mL/min (>60); Est Glom Filt Rate - Afr Amer 22 mL/min (>60); Glucose 89 mg/dL (74-106); Phosphorus 2.6 mg/dL (2.5-4.9); Potassium 3.8 mmol/L (3.5-5.1); Sodium Level 135 mmol/L (136-145)
== END ==
PROVIDERS: Family Provider Family Medicine Geriatric Medicine; PCP Family Medicine Geriatric Medicine; Visit Provider Internal Medicine Nephrology
DX: N17.9 Acute kidney failure, unspecified (principal)
CPT/HCPCS: 36415; 80069

== ENCOUNTER → 2019-11-13 15:54 | Outpatient (CLI) | payer MEDICARE, SELFPAY ==
[2019-10-02 15:48] VITALS: BMI 23.9
== END ==
PROVIDERS: Family Provider Family Medicine Geriatric Medicine; PCP Family Medicine Geriatric Medicine; Visit Provider Family Medicine Geriatric Medicine
DX: N39.0 Urinary tract infection, site not specified (principal)
CPT/HCPCS: 87077; 87086; 87088; 87186

== ENCOUNTER → 2019-11-24 12:52 | Outpatient (CLI) | payer MEDICARE, SELFPAY ==
[2019-10-02 15:48] VITALS: BMI 23.9
[2019-11-24 13:38] LABS: Hematocrit 40.9 % (37-47); Hemoglobin 12.8 g/dL (12.0-15.0); Mean Corp Hgb Conc 31.3 g/dL (32-36); Platelet Count 394 K/mm3 (150-450); RBC Distribution Width CV 17.3 % (11.6-14.6); RBC Distribution Width SD 60.6 fl (35.1-43.9); Red Blood Count 4.26 M/mm3 (4.2-5.4)
[2019-11-24 14:25] LABS: Albumin, Serum 2.8 g/dL (3.2-5.0); BUN 25 mg/dL (7-18); BUN/Creat Ratio 12.8 RATIO (10-20); Chloride 108 mmol/L (98-107); Creatinine, Serum 1.95 mg/dL (0.55-1.02); EST Glomerular Filtration Rate 27 mL/min (>60); Est Glom Filt Rate - Afr Amer 33 mL/min (>60); Glucose 84 mg/dL (74-106); Phosphorus 2.4 mg/dL (2.5-4.9); Potassium 4.2 mmol/L (3.5-5.1); Sodium Level 139 mmol/L (136-145)
== END ==
LOC: LAB.FUTURE 12:54 → LAB 13:04
PROVIDERS: Family Provider Family Medicine Geriatric Medicine; PCP Family Medicine Geriatric Medicine; Referring Provider Internal Medicine Nephrology; Visit Provider Internal Medicine Nephrology
DX: N17.9 Acute kidney failure, unspecified (principal)
CPT/HCPCS: 36415; 80069; 85027

== ENCOUNTER → 2019-12-15 17:34 | Outpatient (CLI) | payer MEDICARE, SELFPAY ==
[2019-10-02 15:48] VITALS: BMI 23.9
== END ==
PROVIDERS: PCP Family Medicine Geriatric Medicine; Visit Provider Nurse Practitioner Adult Health
DX: N39.0 Urinary tract infection, site not specified (principal)
CPT/HCPCS: 87077; 87086; 87088; 87186

== ENCOUNTER → 2019-12-16 15:52 | Outpatient (CLI) | payer MEDICARE, SELFPAY ==
[2019-10-02 15:48] VITALS: BMI 23.9
== END ==
PROVIDERS: PCP Family Medicine Geriatric Medicine; Referring Provider Family Medicine Geriatric Medicine; Visit Provider Family Medicine Geriatric Medicine
DX: R68.83 Chills (without fever) (principal)
CPT/HCPCS: 87633

== ENCOUNTER → 2019-12-19 13:36 | Outpatient (CLI) | payer MEDICARE, SELFPAY ==
[2019-10-02 15:48] VITALS: BMI 23.9
[2019-12-19 14:00] VITALS: BP 157/89; PULSE 59; RESP 16; TEMP 36.4; O2SAT 98; BMI 23.8
== END ==
PROVIDERS: PCP Family Medicine Geriatric Medicine; Referring Provider Nurse Practitioner Adult Health; Visit Provider Nurse Practitioner Adult Health
DX: N39.0 Urinary tract infection, site not specified (principal)
CPT/HCPCS: 96372

== ENCOUNTER → 2019-12-20 13:30 | Outpatient (CLI) | payer MEDICARE, SELFPAY ==
[2019-10-02 15:48] VITALS: BMI 23.9
== END ==
LOC: MEDOUTP 01-06 09:14
PROVIDERS: PCP Family Medicine Geriatric Medicine
DX: Z09 Encounter for follow-up examination after completed treatment for conditions other than malignant neoplasm (principal)
CPT/HCPCS: 96372

== ENCOUNTER 2019-12-20 14:03 | Emergency (ER) | payer MEDICARE, SELFPAY ==
[2019-12-19 14:00] VITALS: BMI 23.8
[2019-12-20 14:05] VITALS: BP 172/73; PULSE 57; PULSE 58; RESP 16; TEMP 37; O2SAT 98; BMI 23.7
== END 2019-12-20 17:09 | disposition home or self-care (01) ==
LOC: ED 14:49
PROVIDERS: Emergency Provider Emergency Medicine; PCP Family Medicine Geriatric Medicine
DX: Z00.00 Encounter for general adult medical examination without abnormal findings (principal)

== ENCOUNTER → 2019-12-21 13:30 | Outpatient (CLI) | payer MEDICARE, SELFPAY ==
[2019-10-02 15:48] VITALS: BMI 23.9
== END ==
LOC: MEDOUTP 01-06 09:15
PROVIDERS: PCP Family Medicine Geriatric Medicine
DX: Z09 Encounter for follow-up examination after completed treatment for conditions other than malignant neoplasm (principal)
CPT/HCPCS: 96372

== ENCOUNTER 2019-12-21 13:50 | Emergency (ER) | payer MEDICARE, SELFPAY ==
[2019-12-20 14:05] VITALS: BMI 23.7
[2019-12-21 14:22] VITALS: BP 152/100; PULSE 61; RESP 17; O2SAT 96; BMI 23.7
== END 2019-12-21 14:24 | disposition home or self-care (01) ==
LOC: ED 13:56
PROVIDERS: Emergency Provider Emergency Medicine; PCP Family Medicine Geriatric Medicine; Referring Provider Family Medicine Geriatric Medicine
DX: N39.0 Urinary tract infection, site not specified (principal)
CPT/HCPCS: 96372

== ENCOUNTER → 2019-12-22 14:10 | Outpatient (CLI) | payer MEDICARE, SELFPAY ==
[2019-10-02 15:48] VITALS: BMI 23.9
[2019-12-21 14:22] VITALS: BMI 23.7
[2019-12-22 14:23] VITALS: BP 150/95; PULSE 75; RESP 16; TEMP 36.5; O2SAT 98; BMI 23.7
== END ==
PROVIDERS: PCP Family Medicine Geriatric Medicine; Referring Provider Nurse Practitioner Adult Health; Visit Provider Nurse Practitioner Adult Health
DX: N39.0 Urinary tract infection, site not specified (principal)
CPT/HCPCS: 96372

== ENCOUNTER → 2019-12-23 12:24 | Outpatient (CLI) | payer MEDICARE, SELFPAY ==
[2019-10-02 15:48] VITALS: BMI 23.9
[2019-12-22 14:23] VITALS: BMI 23.7
[2019-12-23 12:37] VITALS: BP 172/81; PULSE 56; RESP 16; TEMP 36.2; O2SAT 100
[2019-12-23 12:39] VITALS: BP 172/81; PULSE 56; RESP 16; TEMP 36.2; O2SAT 100; BMI 23.8
== END ==
PROVIDERS: PCP Family Medicine Geriatric Medicine; Referring Provider Nurse Practitioner Adult Health; Visit Provider Nurse Practitioner Adult Health
DX: N39.0 Urinary tract infection, site not specified (principal)
CPT/HCPCS: 96372

== ENCOUNTER → 2019-12-24 12:14 | Outpatient (CLI) | payer MEDICARE, SELFPAY ==
[2019-10-02 15:48] VITALS: BMI 23.9
[2019-12-23 12:39] VITALS: BMI 23.8
[2019-12-24 12:30] VITALS: BP 149/77; PULSE 71; RESP 16; TEMP 36.5; O2SAT 100; BMI 23.8
== END ==
LOC: MEDOUTP 12:14
PROVIDERS: PCP Family Medicine Geriatric Medicine; Referring Provider Nurse Practitioner Adult Health; Visit Provider Nurse Practitioner Adult Health
DX: N39.0 Urinary tract infection, site not specified (principal)
CPT/HCPCS: 96372

== ENCOUNTER → 2019-12-25 12:22 | Outpatient (CLI) | payer MEDICARE, SELFPAY ==
[2019-10-02 15:48] VITALS: BMI 23.9
[2019-12-24 12:30] VITALS: BMI 23.8
[2019-12-25 12:32] VITALS: BP 152/71; PULSE 61; RESP 16; TEMP 35.8; O2SAT 99; BMI 23.8
== END ==
LOC: MEDOUTP 12:22
PROVIDERS: PCP Family Medicine Geriatric Medicine; Referring Provider Nurse Practitioner Adult Health; Visit Provider Nurse Practitioner Adult Health
DX: N39.0 Urinary tract infection, site not specified (principal)
CPT/HCPCS: 96372

== ENCOUNTER → 2019-12-29 13:22 | Outpatient (CLI) | payer MEDICARE, SELFPAY ==
[2019-12-25 12:32] VITALS: BMI 23.8
[2019-12-29 14:48] LABS: Absolute Neutrophil Count 9.8 X10^3/uL (2.0-7.7); Basophil# 0.07 X10^3/uL; Basophil% 0.4 % (0-1); Eosinophil# 0.09 X10^3/uL; Eosinophils% 0.5 % (0-5); Hematocrit 43.6 % (37-47); Hemoglobin 13.7 g/dL (12.0-15.0); Lymphocyte % 36.8 % (19-41); Mean Corp Hgb Conc 31.4 g/dL (32-36); Mean Corpuscular Hgb 31.8 pg (27.0-32.0); Mean Corpuscular Volume 101.2 fL (81-99); Mean Platelet Vol. 10.6 fl (6.2-12.0); Monocyte# 1.15 X10^3/uL; Monocyte% 6.4 % (0-10); NRBC Flagged by Analyzer 0 % (0-5); Neutrophil # 9.84 X10^3/uL (2.7-7.7); Neutrophil % 54.8 % (47-70); POSITIVE DIFFERENTIAL YES; POSITIVE MORPHOLOGY YES; Platelet Count 384 K/mm3 (150-450); RBC Distribution Width CV 15.7 % (11.6-14.6); RBC Distribution Width SD 59.2 fl (35.1-43.9); Red Blood Count 4.31 M/mm3 (4.2-5.4)
[2019-12-29 14:53] LABS: Differential Indicated SCAN CRITERIA MET
[2019-12-29 15:17] LABS: Vitamin D,25 Hydroxy 18.8 ng/mL (29.95-100.01)
[2019-12-29 15:20] LABS: Albumin, Serum 2.9 g/dL (3.2-5.0); BUN 24 mg/dL (7-18); Creatinine, Serum 1.72 mg/dL (0.55-1.02); EST Glomerular Filtration Rate 31 mL/min (>60); Est Glom Filt Rate - Afr Amer 38 mL/min (>60); Glucose 81 mg/dL (74-106); Protein, Total 7.2 g/dL (6.4-8.2)
[2019-12-29 15:21] LABS: ALB/GLOB Ratio 0.7 RATIO (0.9-2.4); AST(SGOT) 9 U/L (15-37); Alanine Aminotransfer ALT/SGPT 16 U/L (13-56); Alkaline Phosphatase 104 U/L (45-117); Anion Gap 3 (5-15); Calcium,Total 8.7 mg/dL (8.5-10.1); Chloride 111 mmol/L (98-107); Cholesterol 192 mg/dL (200); Globulin 4.3 g/dL (2.2-4.2); High Density Lipoprotein 54 mg/dL; Potassium 3.8 mmol/L (3.5-5.1); Sodium Level 141 mmol/L (136-145); Thyroid Stim Hormone (TSH) 4.21 uIU/mL (0.358-3.74); Triglycerides 68 mg/dL; Very Low Density Lipoprotein 14 mg/dL (5-40)
[2019-12-29 15:24] LABS: Differential Comment SCANNED
== END ==
LOC: POLAB3 13:22
PROVIDERS: PCP Family Medicine Geriatric Medicine; Visit Provider Family Medicine Geriatric Medicine
DX: I10 Essential (primary) hypertension (principal); E55.9 Vitamin D deficiency, unspecified; E78.5 Hyperlipidemia, unspecified
CPT/HCPCS: 36415; 80053; 80061; 82306; 84443; 85025

== ENCOUNTER → 2019-12-30 15:42 | Outpatient (CLI) | payer MEDICARE, SELFPAY ==
[2019-12-25 12:32] VITALS: BMI 23.8
== END ==
PROVIDERS: PCP Family Medicine Geriatric Medicine; Referring Provider Urology; Visit Provider Urology
DX: N39.0 Urinary tract infection, site not specified (principal)
CPT/HCPCS: 87077; 87086; 87088; 87186

== ENCOUNTER 2020-01-14 12:47 | Day surgery (SDC) | payer MEDICARE, SELFPAY ==
[2019-12-25 12:32] VITALS: BMI 23.8
[2020-01-14] VITALS (7 sets, daily range): BP systolic 127–151; BP diastolic 79–87; PULSE 60–78; RESP 16–20; TEMP 36.3–36.9; O2SAT 97–99; BMI 25.4
--- NOTE | 2020-01-14 12:52 | PCM.HP.STD ---
History of Present Illness Date of Admission: 01/14/20 Chief Complaint: Patient presents the hospital for surgery. The patient is a 69 year old female who presents the hospital for surgery. Past Medical History Past Medical History (Chronic Problems): Chronic Problems (Last Updated 10/01/19 @ 09:29 by Martha Harrison) Chronic renal failure, stage 5 (Chronic) Cervical cancer (Chronic) Bilateral hydronephrosis (Chronic) worsening. 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 Cervical cancer C53.9 Chronic renal failure, stage 4 (severe) N18.4 Allergies pravastatin Allergy (Verified 01/09/20 13:17) Chest tightness sulfamethoxazole [From Bactrim] Allergy (Verified 01/09/20 13:17) Shortness of breath trimethoprim [From Bactrim] Allergy (Verified 01/09/20 13:17) Shortness of breath methylprednisolone Adverse Reaction (Verified 01/09/20 13:17) Pain in joints novacaine Allergy (Uncoded 12/21/19 14:21) Unknown Home Medications: Ambulatory Orders Medication Instructions Recorded albuterol sulfate 90 mcg/actuation 2 puff INHALATION Q6H PRN 07/25/18 aerosol inhaler Metoprolol Tartrate [Lopressor 50 mg PO BID 01/27/19 (beta dustin)] Loperamide [Imodium] 2 mg PO Q2H PRN PRN #20 cap 06/06/19 fluticasone propionate 50 2 spray INTRANASAL DAILY PRN 10/01/19 mcg/actuation nasal spray,suspension Levothyroxine [Synthroid] 25 mcg PO DAILY 01/09/20 Surgical History: Surgical History (Last Updated 10/01/19 @ 09:29 by Martha Harrison) History of excision of mass Z98.890 history of radium implant History of cardiac catheterization Onset Date: ~01/08/18 Z98.890 normal coronaries History of cholecystectomy Z90.49 History of hysterectomy Z90.710 Surgical History: hysterectomy, - - Cholecystectomy; and Mass removed from kidney, rt ureteral stent plaement in 2016 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 Smoking Status: Former smoker - *Family History Paternal Family History: Family History (Last Reviewed 10/01/19 @ 09:28 by Martha Harrison) Father CAD (coronary artery disease) History of coronary artery bypass surgery History Items: Heart Disease, Hypertension Maternal Family History: Family History (Last Reviewed 10/01/19 @ 09:28 by Martha Harrison) Father CAD (coronary artery disease) History of coronary artery bypass surgery History Items: Cancer Review of Systems Constitutional: Denies: Chills, Fever, Weight Change HEENT: Denies: Head Aches, Sinus Congestion, Sinus Drainage Cardiovascular: Denies: Chest Pain, Palpitations Respiratory: Denies: Cough, Shortness of breath at rest, Sputum production Gastrointestinal: Denies: Abdominal Pain, Nausea, Vomiting Genitourinary: Denies: Dysuria Musculoskeletal: Denies: Joint Pain, Joint Tenderness Skin: Denies: Rash, Wounds Neurological: Denies: Numbness, Tingling, Focal weakness Psychiatric: Denies: Anxiety, Depression, Homicidal Ideations, Suicidal Ideations Hematologic/ Lymphatic: Denies: Easy Bruising, Easy Bleeding VTE Information - Inpt Only VTE Present on Admission: No - Physical Exam Vitals/I&O's: Body Mass Index (BMI) 23.8 Finger Stick Blood Glucose 92 General: Alert, Oriented x3, Cooperative HEENT: Atraumatic, PERRLA, EOMI, Normocephalic Neck: Supple, No JVD, Negative Carotid Bruits Lungs: Clear to auscultation, Normal air movement Cardiovascular: Regular rate, No murmurs Abdomen: Bowel Sounds Present, Soft, Non Tender Extremities: No edema, Capillary Refill Less than 3 Seconds Skin: No rashes, No breakdown Musculoskeletal: No Tenderness to Palpation of Joints or Extremities Neurological: Cranial nerves II-XII grossly intact Psych/Mental Status: Normal Affect, Appropriate Current Medications Piperacillin Sod/Tazobactam (Sod 3.375 gm/ Sodium Chloride) 66.875 mls @ 133.75 mls/hr IV PREOP ONE Stop: 01/14/20 15:19 Assessment/Plan All Active Problems (Last Updated 10/01/19 @ 09:29 by Martha Harrison) LULY (acute kidney injury) (Acute) Urinary tract infection (Acute) Sepsis (Acute) Acute diarrhea (Acute) Hypokalemia (Acute) High anion gap metabolic acidosis (Resolved) H/O Dunbar's palsy (Resolved) Hx of cervical cancer (Resolved) 69-year-old female plan to proceed with surgery today.
[2020-01-14] MEDS: Lactated Ringers 1,000 ML 100 ML IV (13:43)
--- NOTE | 2020-01-14 15:15 | OP.PCM_ITS ---
Report of Operation Date of Procedure: 01/14/20 Pre-Operative Diagnosis: Bilateral ureteral obstruction secondary to radiation therapy in the past history of cervical cancer. 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 Since the stents have been placed she is off dialysis. She is due for stent exchange today. Patient was given IV antibiotics according to her last recent urine culture. Patient was taken back to the operating room after smooth induction of anesthesia she was placed up on the table, went into t he bladder with a 21 Italian rigid cystourethroscope, on examination she had a very fixed vaginal area and very fixed area in the bladder on bimanual exam. I first grabbed the left stent pulled out the meatus advance a wire up the left stent exchanged over a Pollack catheter performed a retrograde pyelogram could see the contrast going up in the kidney, but a wire back up into the kidney and advanced a new stent a 6 Italian by 24 cm stent once a good position I pulled the wire the stent: The kidney bladder good position, I then drained the bladder, I then grabbed the right stent pulled out the meatus advance a wire through the right stent up to the kidney and exchanged it for a Pollack catheter performed a retrograde pyelogram could see the contrast of the kidney and there was no hydronephrosis and contrast was up in the kidney I then put a wire up in the right kidney and over the wire I backloaded the stent and advanced a stent up into the right kidney. Once the stent was a good position pulled the wire the stent coiled in the kidney bladder good position I then drained the bladder patient acetic reversed and I will see her in the office in a few weeks for checkup successful stent change on both sides. Type of Anesthesia:: General Drains: stent 6 x 24 cm b/l - Admit VTE Documentation VTE Present on Admission: No VTE Mechan Device Prophylaxis: SCD's
--- NOTE | 2020-01-14 15:15 | DCINST_ITS ---
Discharge Diet: Light diet - advance as tolerated Discharge Activity: Return to Normal Activity Call your doctor if your incision/area has: Sudden Increased Bleeding Call your doctor if you observe: Fever of 101 or Higher Suture Line Care: Avoid Pulling/Pushing, Avoid Pinching/Bending Allergies/Adverse Reactions: Allergies pravastatin Allergy (Verified 01/14/20 13:13) Chest tightness sulfamethoxazole [From Bactrim] Allergy (Verified 01/14/20 13:13) Shortness of breath trimethoprim [From Bactrim] Allergy (Verified 01/14/20 13:13) Shortness of breath methylprednisolone Adverse Reaction (Verified 01/14/20 13:13) Pain in joints novacaine Allergy (Uncoded 01/14/20 13:13) Unknown Medications to take at Discharge albuterol sulfate 90 mcg/actuation aerosol inhaler 2 puff INHALATION Q6H PRN 07/25/18 Metoprolol Tartrate [Lopressor (beta dustin)] 50 mg PO BID 01/27/19 Loperamide [Imodium] 2 mg PO Q2H PRN PRN #20 cap 06/06/19 fluticasone propionate 50 mcg/actuation nasal spray,suspension 2 spray INTRANASAL DAILY PRN 10/01/19 Levothyroxine [Synthroid] 25 mcg PO DAILY 01/09/20 Primary Care Physician: Gerardo García Chi, MD [Primary Care Provider] - Test Results: Test results from this visit will be discussed in further detail at your follow- up appointment, if applicable. Please Follow Up With: Joshua Strickland MD When: in 2 weeks, please call to make an appointment.
== END 2020-01-14 16:35 | disposition home or self-care (01) ==
LOC: SDC 12:50 → AC 12:53
PROVIDERS: PCP Family Medicine Geriatric Medicine; Referring Provider Urology; Visit Provider Urology
PROC: (CPT 52332; principal; 2020-01-14 14:40)
DX: Z46.6 Encounter for fitting and adjustment of urinary device (principal); N13.5 Crossing vessel and stricture of ureter without hydronephrosis; I12.0 Hypertensive chronic kidney disease with stage 5 chronic kidney disease or end stage renal disease; N18.5 Chronic kidney disease, stage 5; E78.5 Hyperlipidemia, unspecified; J45.20 Mild intermittent asthma, uncomplicated; Z79.899 Other long term (current) drug therapy; Z87.891 Personal history of nicotine dependence; Z85.41 Personal history of malignant neoplasm of cervix uteri; T66.XXXA Radiation sickness, unspecified, initial encounter; Y84.2 Radiological procedure and radiotherapy as the cause of abnormal reaction of the patient, or of later complication, without mention of misadventure at the time of the procedure
CPT/HCPCS: 00910; 52332; 76000; J7120; C1769; C2617; J2405

== ENCOUNTER → 2020-01-22 13:06 | Outpatient (CLI) | payer MEDICARE, SELFPAY ==
[2019-10-02 15:48] VITALS: BMI 23.9
[2020-01-14 13:31] VITALS: BMI 25.4
[2020-01-22 13:40] LABS: Hematocrit 45.9 % (37-47); Mean Corp Hgb Conc 32.7 g/dL (32-36); Mean Corpuscular Hgb 32.1 pg (27.0-32.0); Mean Corpuscular Volume 98.3 fL (81-99); Mean Platelet Vol. 9.9 fl (6.2-12.0); Platelet Count 349 K/mm3 (150-450); RBC Distribution Width CV 14.2 % (11.6-14.6); RBC Distribution Width SD 51.6 fl (35.1-43.9); Red Blood Count 4.67 M/mm3 (4.2-5.4); White Blood Count 16.3 K/mm3 (4.4-11.0)
[2020-01-22 14:46] LABS: PTHIN 66.5 pg/mL (18.4-80.1)
[2020-01-22 14:49] LABS: Albumin, Serum 2.7 g/dL (3.2-5.0); BUN 18 mg/dL (7-18); BUN/Creat Ratio 8.8 RATIO (10-20); Calcium,Total 8.9 mg/dL (8.5-10.1); Chloride 109 mmol/L (98-107); Creatinine, Serum 2.04 mg/dL (0.55-1.02); EST Glomerular Filtration Rate 26 mL/min (>60); Est Glom Filt Rate - Afr Amer 31 mL/min (>60); Glucose 86 mg/dL (74-106); Phosphorus 3.2 mg/dL (2.5-4.9); Sodium Level 140 mmol/L (136-145)
[2020-01-22 14:50] LABS: Vitamin D,25 Hydroxy 23.9 ng/mL
== END ==
LOC: LAB 13:07
PROVIDERS: Family Provider Family Medicine Geriatric Medicine; PCP Family Medicine Geriatric Medicine; Referring Provider Internal Medicine Nephrology; Visit Provider Internal Medicine Nephrology
DX: N18.4 Chronic kidney disease, stage 4 (severe) (principal); E55.9 Vitamin D deficiency, unspecified
CPT/HCPCS: 36415; 80069; 82306; 83970; 85027

== ENCOUNTER → 2020-01-29 11:41 | Outpatient (CLI) | payer MEDICARE, SELFPAY ==
[2020-01-14 13:31] VITALS: BMI 25.4
== END ==
PROVIDERS: PCP Family Medicine Geriatric Medicine; Visit Provider Urology
DX: N39.0 Urinary tract infection, site not specified (principal)
CPT/HCPCS: 87077; 87086; 87088; 87186

== ENCOUNTER → 2020-03-25 11:54 | Outpatient (CLI) | payer MEDICARE, SELFPAY ==
[2020-01-14 13:31] VITALS: BMI 25.4
[2020-03-25 10:52] VITALS: BMI 27.2
[2020-03-25 12:43] LABS: Hematocrit 46.2 % (37-47); Hemoglobin 14.9 g/dL (12.0-15.0); Mean Corp Hgb Conc 32.3 g/dL (32-36); Mean Corpuscular Hgb 32.3 pg (27.0-32.0); Mean Corpuscular Volume 100.2 fL (81-99); Platelet Count 384 K/mm3 (150-450); RBC Distribution Width CV 13.3 % (11.6-14.6); Red Blood Count 4.61 M/mm3 (4.2-5.4); White Blood Count 18.7 K/mm3 (4.4-11.0)
[2020-03-25 13:16] LABS: PTHIN 105.4 pg/mL (18.4-80.1)
[2020-03-25 13:19] LABS: Albumin, Serum 2.7 g/dL (3.2-5.0); BUN 23 mg/dL (7-18); Calcium,Total 8.9 mg/dL (8.5-10.1); Chloride 106 mmol/L (98-107); Creatinine, Serum 2.09 mg/dL (0.55-1.02); EST Glomerular Filtration Rate 25 mL/min (>60); Est Glom Filt Rate - Afr Amer 30 mL/min (>60); Glucose 90 mg/dL (74-106); Phosphorus 3.3 mg/dL (2.5-4.9); Potassium 3.8 mmol/L (3.5-5.1); Sodium Level 138 mmol/L (136-145)
== END ==
LOC: LAB 11:57
PROVIDERS: Internal Medicine Cardiovascular Disease; PCP Family Medicine Geriatric Medicine; Referring Provider Internal Medicine Nephrology; Visit Provider Internal Medicine Nephrology
DX: N18.4 Chronic kidney disease, stage 4 (severe) (principal); R55 Syncope and collapse
CPT/HCPCS: 36415; 80069; 83970; 85027

== ENCOUNTER 2020-03-29 11:47 | Day surgery (SDC) | payer MEDICARE, SELFPAY ==
[2020-03-22 10:03] VITALS: BMI 26.6
--- NOTE | 2020-03-22 11:25 | HP_ITS ---
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: No Is patient in pain?: No Allergies pravastatin Allergy (Verified 03/22/20 09:54) Chest tightness sulfamethoxazole [From Bactrim] Allergy (Verified 03/22/20 09:54) Shortness of breath trimethoprim [From Bactrim] Allergy (Verified 03/22/20 09:54) Shortness of breath methylprednisolone Adverse Reaction (Verified 03/22/20 09:54) Pain in joints novacaine Allergy (Uncoded 03/22/20 09:54) Unknown Medications albuterol sulfate 90 mcg/actuation aerosol inhaler 2 puff INHALATION Q6H PRN 07/25/18 [History Confirmed 03/22/20] Metoprolol Tartrate [Lopressor (beta dustin)] 50 mg PO BID 01/27/19 [History Confirmed 03/22/20] fluticasone propionate 50 mcg/actuation nasal spray,suspension 2 spray INTRANASAL DAILY PRN 10/01/19 [History Confirmed 03/22/20] Levothyroxine [Synthroid] 25 mcg PO DAILY 01/09/20 [History Confirmed 03/22/20] PFSH Family History Father , 32 yrs old CAD (coronary artery disease) History of coronary artery bypass surgery Social History Smoking Status: Former smoker alcohol intake: never substance use type: does not use HPI HPI HPI: TODD HERRERA is a 69 F who presents to the office today for HPI HPI Surgical H&P: Yes HPI: TODD HERRERA is a 69 F who presents to the office today for an update history and physical. Patient denies recent hospitalization or illnesses. She denies shortness of breath and chest pain ROS General General: Yes fatigue; no weight change, appetite, colon cancer, breast cancer or weakness HEENT HEENT: No difficulty swallowing, eye injury, eye surgery, swollen glands or hoarseness Endo Endocrine: No thyroid disease, diabetes mellitus, thyroid cancer, Hair loss, heat intolerance or cold intolerance Musc Musculoskeletal: No back problems, arthritis, rheumatoid arthritis, gout or joint pain Cardio Cardiovascular: Yes murmur and high blood pressure; no pacemaker, heart disease, atrial fibrillation, heart attack, heart stent, palpitations, shortness of breat with exertion or chest pain Resp Respiratory: No shortness of breath, No sleep apnea, No cough, No COPD, Yes asthma, No emphysema, No wheezing Gastro Gastrointestinal: No abdominal pain, No nausea or vomiting, Yes diarrhea, No constipation, No blood in stool, No acid reflux, No hemorrhoids, No ulcers, No gallbladder problem, No black,tarry stools [place] Hematologic: Yes blood thinners, No blood disorders, No bleeding, Yes anemia, No blood clots Neuro Neurologic: No weakness Exam Cardio Heart Sounds: murmur Date _ Eden Schroeder PA-C
[2020-03-25 10:52] VITALS: BMI 27.2
[2020-03-26 14:09] VITALS: BMI 27.2
--- NOTE | 2020-03-29 13:33 | CL.IE_ITS ---
Patient: TODD HERRERA Study Date: 03/29/2020 Performing: Seth Pugh MD : 1950 Age: 69 Gender: female PROCEDURES PERFORMED [id number] OF LOOP RECORDER INDICATIONS Syncope PROCEDURE DETAILS The patient was brought to the Catheterization Lab in the postabsorptive nonsedated state. Infor med consent was obtained prior to the procedure. Local anesthetic was given subcutaneously to the le ft upper chest area with Lidocaine 2%. Incision was made to the left upper chest. ICM Loop Recorder w as inserted. Steri-strips applied to Lt chest area. The patient tolerated the procedure well. 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 Device Recommendations: Follow up with Primary Care Physician PROCEDURE MEDICATIONS Versed 1 mg IV Oxygen: 2 L/min via nasal cannula Ancef 2 Gm IV @ 03/29/2020 13:03:08 Signed By Seth Pugh MD On 03/29/2020 13:32:05 Seth Pugh MD
== END 2020-03-29 14:55 | disposition home or self-care (01) ==
LOC: CLSP 11:47
PROVIDERS: PCP Family Medicine Geriatric Medicine; Referring Provider Internal Medicine Cardiovascular Disease; Visit Provider Internal Medicine Cardiovascular Disease
DX: Z45.09 Encounter for adjustment and management of other cardiac device (principal); R55 Syncope and collapse; Z87.891 Personal history of nicotine dependence
CPT/HCPCS: 33285; 99152; J7040

== ENCOUNTER → 2020-04-01 08:58 | Outpatient (CLI) | payer MEDICARE, SELFPAY ==
[2020-02-27 08:49] VITALS: BMI 26.6
[2020-03-26 14:09] VITALS: BMI 27.2
--- NOTE | 2020-04-01 09:00 | ECHOD_ITS ---
Reason For Study: SYNCOPE Procedure This was a 2D Doppler, Color Flow transthoracic echocardiogram. Myocardial strain analysis was performed in this exam to aid in the assessment of cardiac function. The exam was of adequate technical quality. Exam performed in department. Left Ventricle Normal LV size. Left ventricular systolic function is normal. The estimated ejection fraction is 55 %. Diastolic function is indeterminate. No regional wall motion abnormalities noted. Right Ventricle Normal RV size. Normal systolic function. Atria Normal left atrium. Normal right atrium. No doppler evidence for ASD. Mitral Valve There is no mitral annular calcification. Normal mitral valve. Trivial mitral valve insufficiency. Tricuspid Valve Normal tricuspid valve. Trivial tricuspid valve insufficiency. Right ventricular systolic pressure estimated to be 24 mmHg. Aortic Valve Trisinus/trileaflet aortic valve. Mild focal aortic valve calcification. Mild (1+) aortic valve insufficiency. Pulmonic Valve The pulmonic valve is not well visualized. Great Vessels Normal sized aortic root. Pericardium/Pleural No pericardial effusion. Epicardial fat. MMode/2D Measurements & Calculations LVIDd: 4.2 cm IVSd: 0.94 cm Ao root diam: 3.7 cm LVIDs: 2.9 cm LVPWd: 0.97 cm RVDd: 3.0 cm FS: 31.8 % LAV(MOD-bp): 23.8 ml LA A4 area: 11.5 cm2 LA dimension(2D): 3.8 cm LAV(MOD-bp) Indexed: 12.4 ml/m2 LAV(MOD-sp2): 24.9 ml LAV(MOD-sp4): 20.6 ml RA A4 area: 8.7 cm2 Time Measurements MV dec time: 0.30 sec Doppler Measurements & Calculations MV E max emir: 54.4 cm/sec Lat Peak E' Emir: 4.4 cm/sec Med Peak E' Emir: 3.9 cm/sec MV A max emir: 87.6 cm/sec E/E' lat: 12.4 E/E' med: 14.1 MV E/A: 0.62 Ao V2 max: 104.1 cm/sec AI max emir: 490.4 cm/sec LV V1 max: 94.1 cm/sec Ao max P.3 mmHg AI max P.2 mmHg LV V1 max P.5 mmHg AI dec slope: 220.0 cm/sec2 AI P1/2t: 652.8 msec PA V2 max: 74.8 cm/sec PI end-d emir: 65.9 cm/sec TR max emir: 230.0 cm/sec TR max P.2 mmHg Interpretation Summary Left ventricular systolic function is normal. The estimated ejection fraction is 55 %. Trivial mitral valve insufficiency. Trivial tricuspid valve insufficiency. Mild focal aortic valve calcification. Mild (1+) aortic valve insufficiency. Epicardial fat. Right ventricular systolic pressure estimated to be 24 mmHg. Diastolic function is indeterminate. Ordering Physician: Reji Patrick Referring Physician: SUZI BOLES CHI Performed By: Sandra Miller, SALVATORE, RVT
== END ==
LOC: CVS 09:00
PROVIDERS: PCP Family Medicine Geriatric Medicine; Referring Provider Internal Medicine Cardiovascular Disease; Visit Provider Internal Medicine Cardiovascular Disease
DX: R55 Syncope and collapse (principal); E78.5 Hyperlipidemia, unspecified; I10 Essential (primary) hypertension
CPT/HCPCS: 93306

== ENCOUNTER → 2020-05-17 16:13 | Outpatient (CLI) | payer MEDICARE, SELFPAY ==
[2020-04-09 11:14] VITALS: BMI 20.7
== END ==
PROVIDERS: PCP Family Medicine Geriatric Medicine; Referring Provider Urology; Visit Provider Urology
DX: R82.998 Other abnormal findings in urine (principal)
CPT/HCPCS: 87077; 87086; 87088; 87186

== ENCOUNTER 2020-05-28 12:43 | Day surgery (SDC) | payer MEDICARE, SELFPAY ==
[2020-04-09 11:14] VITALS: BMI 20.7
[2020-05-28 13:33] VITALS: BP 137/85; PULSE 68; RESP 14; TEMP 36.8; O2SAT 96; BMI 26.5
[2020-05-28] MEDS: Lactated Ringers 1,000 ML 100 ML IV ×2 (13:53→17:29)
[2020-05-28] MEDS: Cefazolin 2 GM in 0.9% Normal Saline 100 ML IV (16:23)
--- NOTE | 2020-05-28 16:29 | HP.PCM_ITS ---
History of Present Illness Date of Admission: 05/28/20 Chief Complaint: Bilateral ureteral obstruction The patient is a 69 year old female with chronic kidney disease who presents for stent change she has bilateral ureteral obstruction secondary to radiation therapy long time ago scarred down ureters on both sides she is due for stent change today. Past Medical History Past Medical History (Chronic Problems): Chronic Problems (Last Reviewed 04/09/20 @ 11:20 by Shazia Mccoy) Status post placement of implantable loop recorder (Chronic ~03/29/20) Dunbar's palsy (Chronic) Cervical cancer (Chronic) Chronic renal failure, stage 4 (severe) (Chronic) Essential hypertension (Chronic) Chronic renal failure, stage 5 (Chronic) Cervical cancer (Chronic) Bilateral hydronephrosis (Chronic) worsening. Hyponatremia (Chronic) Hyperlipidemia (Chronic) Mild intermittent asthma (Chronic) Medical History: Medical History (Last Reviewed 05/28/20 @ 16:[address] 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 Acute diarrhea (Acute) R19.7 Hyponatremia (Chronic) E87.1 Hypokalemia (Acute) E87.6 High anion gap metabolic acidosis (Resolved) E87.2 Hyperlipidemia (Chronic) E78.5 Mild intermittent asthma (Chronic) J45.20 Allergies pravastatin Allergy (Verified 05/24/20 08:14) Chest tightness procaine [From Novocain] Allergy (Verified 05/24/20 08:14) NEEDS FOLLOW-UP sulfamethoxazole [From Bactrim] Allergy (Verified 05/24/20 08:14) Shortness of breath trimethoprim [From Bactrim] Allergy (Verified 05/24/20 08:14) Shortness of breath methylprednisolone Adverse Reaction (Verified 05/24/20 08:14) Pain in joints novacaine Allergy (Uncoded 04/09/20 11:19) Unknown Home Medications: Ambulatory Orders Medication Instructions Recorded albuterol sulfate 90 mcg/actuation 2 puff INHALATION Q6H PRN 07/25/18 aerosol inhaler Metoprolol Tartrate [Lopressor 50 mg PO BID 01/27/19 (beta dustin)] Levothyroxine [Synthroid] 25 mcg PO DAILY 01/09/20 Doxycycline Hyclate 100 mg PO DAILY 05/24/20 Ipratropium [place] 15 ml NS BID 05/24/20 Levocetirizine Dihydrochloride 5 mg PO DAILY 05/24/20 [24Hr Allergy Relief] Surgical History: Surgical History (Last Reviewed 04/09/20 @ 11:20 by Shazia Mccoy) History of cardiac catheterization (Resolved) Onset Date: ~01/08/18 Z98.890 normal coronaries History of hysterectomy (Resolved) Z90.710 History of cholecystectomy (Resolved) Z90.49 History of excision of mass (Acute) Z98.890 history of radium implant (Acute) History of loop recorder Z98.890 Surgical History: hysterectomy, - - Cholecystectomy; and Mass removed from kidney, rt ureteral stent plaement in 2016 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 Smoking Status: Former smoker Tobacco Use: Non-smoker - *Family History Paternal Family History: Family History (Last Reviewed 04/09/20 @ 11:20 by Shazia Mccoy) Father CAD (coronary artery disease) History of coronary artery bypass surgery History Items: Heart Disease, Hypertension Maternal Family History: Family History (Last Reviewed 04/09/20 @ 11:20 by Shazia Mccoy) Father CAD (coronary artery disease) History of coronary artery bypass surgery History Items: Cancer Review of Systems Constitutional: Denies: Chills, Fever, Weight Change HEENT: Denies: Head Aches, Sinus Congestion, Sinus Drainage Cardiovascular: Denies: Chest Pain, Palpitations Respiratory: Denies: Cough, Shortness of breath at rest, Sputum production Gastrointestinal: Denies: Abdominal Pain, Nausea, Vomiting Genitourinary: Denies: Dysuria Musculoskeletal: Denies: Joint Pain, Joint Tenderness Skin: Denies: Rash, Wounds Neurological: Denies: Numbness, Tingling, Focal weakness Psychiatric: Denies: Anxiety, Depression, Homicidal Ideations, Suicidal Ideations Hematologic/ Lymphatic: Denies: Easy Bruising, Easy Bleeding VTE Information - Inpt Only VTE Present on Admission: No VTE Mechan Device Prophylaxis: SCD's - Physical Exam Vitals/I&O's: Vital Signs Temp Pulse Resp BP Pulse Ox 98.3 F 68 14 137/85 H 96 05/28/20 13:33 05/28/20 13:33 05/28/20 13:33 05/28/20 13:33 05/28/20 13:33 Oxygen Delivery Method Room Air Weight: 79.2 kg Body Mass Index (BMI) 26.5 Finger Stick Blood Glucose 92 General: Alert, Oriented x3, Cooperative HEENT: Atraumatic, PERRLA, EOMI, Normocephalic Neck: Supple, No JVD, Negative Carotid Bruits Lungs: Clear to auscultation, Normal air movement Cardiovascular: Regular rate, No murmurs Abdomen: Bowel Sounds Present, Soft, Non Tender Extremities: No edema, Capillary Refill Less than 3 Seconds Skin: No rashes, No breakdown Musculoskeletal: No Tenderness to Palpation of Joints or Extremities Neurological: Cranial nerves II-XII grossly intact Psych/Mental Status: Normal Affect, Appropriate Laboratory Results 05/24/20 17:00: COVID-19 (BOBBI) Not Detected Current Medications Lactated Ringer's () 1,000 mls @ 100 mls/hr IV .Q10H CINDY Last Admin: 05/28/20 13:53 Dose: 100 mls/hr Documented by: Assessment/Plan All Active Problems (Last Reviewed 04/09/20 @ 11:20 by Shazia Mccoy) Problem with dialysis access (Acute) History of cardiac catheterization (Resolved ~01/08/18) History of hysterectomy (Resolved) History of cholecystectomy (Resolved) History of excision of mass (Acute) history of radium implant (Acute) Near syncope (Acute) LULY (acute kidney injury) (Acute) Sepsis (Acute) Acute diarrhea (Acute) Hypokalemia (Acute) High anion gap metabolic acidosis (Resolved) H/O Dunbar's palsy (Resolved) Hx of cervical cancer (Resolved) Urinary tract infection (Resolved) Plan for bilateral stent changes today in the operating room.
--- NOTE | 2020-05-28 16:46 | DCINST_ITS ---
Discharge Diet: Light diet - advance as tolerated Discharge Activity: Return to Normal Activity, May not drive while taking narcotic pain medications. Allergies/Adverse Reactions: Allergies pravastatin Allergy (Verified 05/24/20 08:14) Chest tightness procaine [From Novocain] Allergy (Verified 05/24/20 08:14) NEEDS FOLLOW-UP sulfamethoxazole [From Bactrim] Allergy (Verified 05/24/20 08:14) Shortness of breath trimethoprim [From Bactrim] Allergy (Verified 05/24/20 08:14) Shortness of breath methylprednisolone Adverse Reaction (Verified 05/24/20 08:14) Pain in joints novacaine Allergy (Uncoded 04/09/20 11:19) Unknown Medications to take at Discharge albuterol sulfate 90 mcg/actuation aerosol inhaler 2 puff INHALATION Q6H PRN 07/25/18 Metoprolol Tartrate [Lopressor (beta dustin)] 50 mg PO BID 01/27/19 Levothyroxine [Synthroid] 25 mcg PO DAILY 01/09/20 Doxycycline Hyclate 100 mg PO DAILY 05/24/20 Ipratropium [place] 15 ml NS BID 05/24/20 Levocetirizine Dihydrochloride [24Hr Allergy Relief] 5 mg PO DAILY 05/24/20 Primary Care Physician: Gerardo García Chi, MD [Primary Care Provider] - Test Results: Test results from this visit will be discussed in further detail at your follow- up appointment, if applicable. Please Follow Up With: Joshua Strickland MD When: please call to make an appointment.
--- NOTE | 2020-05-28 16:47 | PCM.OPRPT ---
Report of Operation Date of Procedure: 05/28/20 Pre-Operative Diagnosis: Bilateral ureteral obstruction chronic renal insufficiency Post-Operative Diagnosis: Same Surgery/Procedure Performed:: Cystoscopy retrograde pyelogram, interpretation fluoroscopic images, left stent change and right stent change Description of Surgical Findings:: 69-year-old female taken back to the operating room at the smooth induction of general anesthesia she was placed in dorsolithotomy position today working to plan to change both her stents she has chronic renal insufficiency and her creatinine is been going up so her stents have obstructed and stand up and use stents on both sides to keep her off dialysis. She understands is possible this may not work and she her creatinine may continue to get worse and she may have to go on dialysis. Other option would be to try nephrostomy tubes. Patient was taken back to the operating room at some induction of anesthesia she was placed in dorsolithotomy position the urethra vaginal area prepped and draped usual sterile fashion with about a 21 [place] rigid cystourethroscope grabbed existing stent on the right side pulled out to the meatus advance a wire through the stent all the way to the kidney and the while wire coiled in the kidney and then over the wire backloaded the old stent and had loaded up a new stent stent went over the wire into the kidney in good position then pulled the wire we then went to the left side and grabbed the stent performed a retrograde pyelogram of the left side to see contrast going of the kidney and then put a wire up in the left kidney and then over the wire place a new stent and new 6 [place] by 26 cm stent once a stent was in good position the pulled the wire the stent: The kidney bladder good position and then drained the bladder patient anesthetic reversed. She will follow-up in a few weeks in the office. Type of Anesthesia:: General Drains: stents bilateral - Admit VTE Documentation VTE Present on Admission: No VTE Mechan Device Prophylaxis: SCD's
[2020-05-28 16:52] VITALS: BP 102/64; BP 137/85; PULSE 73; RESP 16; TEMP 36.6; O2SAT 97
[2020-05-28 17:00] VITALS: BP 124/83; BP 137/85; PULSE 69; RESP 16; O2SAT 97
[2020-05-28 17:05] VITALS: BP 133/77; BP 137/85; PULSE 67; RESP 16; O2SAT 97
[2020-05-28 17:15] VITALS: BP 124/77; BP 137/85; PULSE 61; RESP 16; TEMP 36.6; O2SAT 97
[2020-05-28 18:06] VITALS: BP 137/85; BP 154/82; PULSE 60; RESP 16; TEMP 36.6; O2SAT 99
== END 2020-05-28 18:07 | disposition home or self-care (01) ==
LOC: SDC 12:43 → AC 12:44
PROVIDERS: Anesthesiology; PCP Family Medicine Geriatric Medicine; Referring Provider Urology; Visit Provider Urology
PROC: (CPT 52332; principal; 2020-05-28 14:35)
DX: N13.5 Crossing vessel and stricture of ureter without hydronephrosis (principal); N18.5 Chronic kidney disease, stage 5; Z11.59 Encounter for screening for other viral diseases; I12.0 Hypertensive chronic kidney disease with stage 5 chronic kidney disease or end stage renal disease; E78.5 Hyperlipidemia, unspecified; G51.0 Bell's palsy; J45.20 Mild intermittent asthma, uncomplicated; Z79.899 Other long term (current) drug therapy; Z87.891 Personal history of nicotine dependence
CPT/HCPCS: 00910; 52332; 76000; 87635; G2023; J7120; C2617; U0003

== ENCOUNTER → 2020-07-15 10:34 | Outpatient (CLI) | payer MEDICARE, SELFPAY ==
[2020-07-13 12:57] VITALS: BMI 27.0
[2020-07-15 12:17] LABS: Absolute Lymphocyte Count 5.99 X10^3/uL (0.83-4.51); Basophil# 0.06 X10^3/uL; Basophil% 0.3 % (0-1); Eosinophil# 0.08 X10^3/uL; Eosinophils% 0.5 % (0-5); Hematocrit 46.1 % (37-47); Hemoglobin 14.7 g/dL (12.0-15.0); Lymphocyte # 5.99 X10^3/ul (4.0); Lymphocyte % 34.7 % (19-41); Mean Corp Hgb Conc 31.9 g/dL (32-36); Mean Corpuscular Hgb 32.4 pg (27.0-32.0); Mean Corpuscular Volume 101.5 fL (81-99); Mean Platelet Vol. 10.6 fl (6.2-12.0); Monocyte# 0.99 X10^3/uL; Monocyte% 5.7 % (0-10); NRBC Flagged by Analyzer 0 % (0-5); Neutrophil # 10.01 X10^3/uL (2.7-7.7); POSITIVE DIFFERENTIAL YES; Platelet Count 393 K/mm3 (150-450); RBC Distribution Width CV 15.1 % (11.6-14.6); Red Blood Count 4.54 M/mm3 (4.2-5.4); White Blood Count 17.3 K/mm3 (4.4-11.0)
[2020-07-15 12:23] LABS: Differential Indicated SCAN CRITERIA MET
[2020-07-15 12:30] LABS: Vitamin D,25 Hydroxy 21.4 ng/mL
[2020-07-15 12:41] LABS: ALB/GLOB Ratio 0.5 RATIO (0.9-2.4); AST(SGOT) 9 U/L (15-37); Alanine Aminotransfer ALT/SGPT 15 U/L (13-56); Albumin, Serum 2.8 g/dL (3.2-5.0); Alkaline Phosphatase 113 U/L (45-117); Anion Gap 6 (5-15); BUN 18 mg/dL (7-18); BUN/Creat Ratio 7.9 RATIO (10-20); Calcium,Total 8.6 mg/dL (8.5-10.1); Chloride 107 mmol/L (98-107); Creatinine, Serum 2.27 mg/dL (0.55-1.02); EST Glomerular Filtration Rate 23 mL/min (>60); Est Glom Filt Rate - Afr Amer 28 mL/min (>60); Globulin 5.4 g/dL (2.2-4.2); Glucose 93 mg/dL (74-106); Potassium 3.1 mmol/L (3.5-5.1); Protein, Total 8.2 g/dL (6.4-8.2); Sodium Level 140 mmol/L (136-145); Thyroid Stim Hormone (TSH) 2.04 uIU/mL (0.358-3.74)
[2020-07-15 13:02] LABS: Reactive Lymphocyte 1+
== END ==
PROVIDERS: PCP Family Medicine Geriatric Medicine; Visit Provider Family Medicine Geriatric Medicine
DX: E55.9 Vitamin D deficiency, unspecified (principal); E78.5 Hyperlipidemia, unspecified; I10 Essential (primary) hypertension
CPT/HCPCS: 36415; 80053; 82306; 84443; 85025

== ENCOUNTER → 2020-07-28 10:31 | Outpatient (CLI) | payer MEDICARE, SELFPAY ==
[2020-07-13 12:57] VITALS: BMI 27.0
== END ==
PROVIDERS: PCP Family Medicine Geriatric Medicine; Referring Provider Nurse Practitioner Adult Health; Visit Provider Nurse Practitioner Adult Health
DX: N39.0 Urinary tract infection, site not specified (principal)
CPT/HCPCS: 87086

== ENCOUNTER → 2020-07-28 14:42 | Outpatient (CLI) | payer MEDICARE, SELFPAY ==
[2020-07-13 12:57] VITALS: BMI 27.0
[2020-07-28 15:06] LABS: Absolute Lymphocyte Count 5.95 X10^3/uL (0.83-4.51); Basophil# 0.08 X10^3/uL; Basophil% 0.6 % (0-1); Eosinophil# 0.12 X10^3/uL; Eosinophils% 0.9 % (0-5); Hematocrit 49.2 % (37-47); Hemoglobin 15.6 g/dL (12.0-15.0); Lymphocyte # 5.95 X10^3/ul (4.0); Lymphocyte % 42.8 % (19-41); Mean Corp Hgb Conc 31.7 g/dL (32-36); Mean Corpuscular Hgb 33.3 pg (27.0-32.0); Mean Corpuscular Volume 104.9 fL (81-99); Mean Platelet Vol. 10.5 fl (6.2-12.0); Monocyte# 0.65 X10^3/uL; Monocyte% 4.7 % (0-10); NRBC Flagged by Analyzer 0 % (0-5); Neutrophil # 6.98 X10^3/uL (2.7-7.7); Neutrophil % 50.2 % (47-70); POSITIVE DIFFERENTIAL YES; Platelet Count 315 K/mm3 (150-450); RBC Distribution Width CV 14.7 % (11.6-14.6); RBC Distribution Width SD 56.9 fl (35.1-43.9); Red Blood Count 4.69 M/mm3 (4.2-5.4); White Blood Count 13.9 K/mm3 (4.4-11.0)
[2020-07-28 15:08] LABS: Differential Indicated SCAN CRITERIA MET
[2020-07-28 15:38] LABS: Reactive Lymphocyte 1+
[2020-07-28 15:44] LABS: Anion Gap 8 (5-15); BUN 19 mg/dL (7-18); BUN/Creat Ratio 9.4 RATIO (10-20); Calcium,Total 8.7 mg/dL (8.5-10.1); Chloride 110 mmol/L (98-107); Creatinine, Serum 2.02 mg/dL (0.55-1.02); EST Glomerular Filtration Rate 26 mL/min (>60); Est Glom Filt Rate - Afr Amer 32 mL/min (>60); Glucose 94 mg/dL (74-106); Potassium 4.4 mmol/L (3.5-5.1); Sodium Level 137 mmol/L (136-145)
[2020-07-28 18:52] LABS: M R Staph aureus DNA By PCR POSITIVE (Negative); Probe Check PASS; Staph aureus DNA By PCR POSITIVE (Negative)
== END ==
PROVIDERS: PCP Family Medicine Geriatric Medicine; Visit Provider Family Medicine Geriatric Medicine
DX: E87.6 Hypokalemia (principal); M79.609 Pain in unspecified limb; L03.90 Cellulitis, unspecified; N39.0 Urinary tract infection, site not specified
CPT/HCPCS: 36415; 80048; 85025; 87070; 87077; 87086; 87088; 87186; 87205; 87640

== ENCOUNTER → 2020-08-04 09:01 | Outpatient (CLI) | payer MEDICARE, SELFPAY ==
[2020-07-13 12:57] VITALS: BMI 27.0
[2020-08-04 12:26] LABS: Hematocrit 44.9 % (37-47); Hemoglobin 14.5 g/dL (12.0-15.0); Mean Corp Hgb Conc 32.3 g/dL (32-36); Mean Corpuscular Hgb 32.7 pg (27.0-32.0); Mean Corpuscular Volume 101.1 fL (81-99); Mean Platelet Vol. 10.2 fl (6.2-12.0); Platelet Count 407 K/mm3 (150-450); RBC Distribution Width CV 15.4 % (11.6-14.6); RBC Distribution Width SD 57.9 fl (35.1-43.9); Red Blood Count 4.44 M/mm3 (4.2-5.4); White Blood Count 18.6 K/mm3 (4.4-11.0)
[2020-08-04 12:41] LABS: Albumin, Serum 2.8 g/dL (3.2-5.0); BUN 21 mg/dL (7-18); BUN/Creat Ratio 9.5 RATIO (10-20); Calcium,Total 8.2 mg/dL (8.5-10.1); Chloride 104 mmol/L (98-107); Creatinine, Serum 2.21 mg/dL (0.55-1.02); EST Glomerular Filtration Rate 24 mL/min (>60); Est Glom Filt Rate - Afr Amer 28 mL/min (>60); Glucose 86 mg/dL (74-106); Phosphorus 2.9 mg/dL (2.5-4.9); Potassium 3.2 mmol/L (3.5-5.1); Sodium Level 137 mmol/L (136-145)
[2020-08-04 12:59] LABS: PTHIN 169.3 pg/mL (18.4-80.1)
== END ==
LOC: POLAB3 09:01
PROVIDERS: PCP Family Medicine Geriatric Medicine; Visit Provider Internal Medicine Nephrology
DX: N18.4 Chronic kidney disease, stage 4 (severe) (principal)
CPT/HCPCS: 36415; 80069; 83970; 85027

== ENCOUNTER → 2020-08-31 11:24 | Outpatient (CLI) | payer MEDICARE, SELFPAY ==
[2020-07-13 12:57] VITALS: BMI 27.0
[2020-08-31 11:41] LABS: Absolute Lymphocyte Count 3.81 X10^3/uL (0.83-4.51); Absolute Neutrophil Count 14.5 X10^3/uL (2.0-7.7); Basophil# 0.09 X10^3/uL; Basophil% 0.4 % (0-1); Eosinophil# 0.07 X10^3/uL; Eosinophils% 0.3 % (0-5); Hematocrit 40.3 % (37-47); Hemoglobin 12.9 g/dL (12.0-15.0); Lymphocyte # 3.81 X10^3/ul (4.0); Mean Corpuscular Hgb 32.6 pg (27.0-32.0); Mean Corpuscular Volume 101.8 fL (81-99); Mean Platelet Vol. 10.9 fl (6.2-12.0); Monocyte# 1.34 X10^3/uL; Monocyte% 6.7 % (0-10); NRBC Flagged by Analyzer 0 % (0-5); Neutrophil # 14.49 X10^3/uL (2.7-7.7); Neutrophil % 72.1 % (47-70); Platelet Count 323 K/mm3 (150-450); RBC Distribution Width CV 13.3 % (11.6-14.6); RBC Distribution Width SD 49.9 fl (35.1-43.9); Red Blood Count 3.96 M/mm3 (4.2-5.4); White Blood Count 20.1 K/mm3 (4.4-11.0)
[2020-08-31 11:55] LABS: Anion Gap 9 (5-15); BUN 29 mg/dL (7-18); BUN/Creat Ratio 9.3 RATIO (10-20); Calcium,Total 7.8 mg/dL (8.5-10.1); Chloride 111 mmol/L (98-107); Creatinine, Serum 3.13 mg/dL (0.55-1.02); EST Glomerular Filtration Rate 16 mL/min (>60); Est Glom Filt Rate - Afr Amer 19 mL/min (>60); Glucose 90 mg/dL (74-106); Potassium 3.2 mmol/L (3.5-5.1); Sodium Level 136 mmol/L (136-145)
--- NOTE | 2020-08-31 12:30 | RAD_ITS ---
STUDY: X-RAY - ABDOMEN/PELVIS REASON FOR EXAM: Female, 70 years old. VOMITING, DIARRHEA, LOSS OF APPETITE X 3 DAYS. PREVIOUS GALLBLADDER SURGERY 30 YEARS AGO TECHNIQUE: AP supine and upright views of the abdomen and pelvis. COMPARISON: None. FINDINGS: Normal visualized lung bases. There is a moderate amount of colonic fecal material. There is no demonstrated free abdominal air. There is evidence of bilateral ureteral stents. There is a 6.7 mm rounded calcification in the left pelvis most likely representing a bladder calculus. Linear calcifications are seen in the pelves bilaterally. Normal soft tissue structures. Spina bifida occulta at the L5 level. RAD/Abd Inc Decub and/or Erect IMPRESSION: Bilateral ureteral stents. Findings suggestive of a 6.7 mm calculus in the left side of the bladder. Electronically Signed: Ike Colón, at 14:07 EDT , Service support ,
== END ==
PROVIDERS: PCP Family Medicine Geriatric Medicine; Visit Provider Family Medicine Geriatric Medicine
DX: R19.7 Diarrhea, unspecified (principal); N39.0 Urinary tract infection, site not specified
CPT/HCPCS: 36415; 74019; 80048; 85025; 87077; 87086; 87088; 87186

== ENCOUNTER → 2020-09-01 11:35 | Outpatient (CLI) | payer MEDICARE, SELFPAY ==
[2020-07-13 12:57] VITALS: BMI 27.0
[2020-09-01 12:05] LABS: Absolute Lymphocyte Count 6.16 X10^3/uL (0.83-4.51); Absolute Neutrophil Count 16.2 X10^3/uL (2.0-7.7); Basophil# 0.13 X10^3/uL; Basophil% 0.5 % (0-1); Eosinophil# 0.12 X10^3/uL; Eosinophils% 0.5 % (0-5); Hematocrit 40.7 % (37-47); Hemoglobin 12.7 g/dL (12.0-15.0); Lymphocyte # 6.16 X10^3/ul (4.0); Lymphocyte % 25.3 % (19-41); Mean Corp Hgb Conc 31.2 g/dL (32-36); Mean Corpuscular Hgb 32.6 pg (27.0-32.0); Mean Corpuscular Volume 104.6 fL (81-99); Mean Platelet Vol. 10.7 fl (6.2-12.0); Monocyte# 1.25 X10^3/uL; Monocyte% 5.1 % (0-10); NRBC Flagged by Analyzer 0 % (0-5); Neutrophil # 16.21 X10^3/uL (2.7-7.7); Neutrophil % 66.5 % (47-70); POSITIVE DIFFERENTIAL YES; Platelet Count 409 K/mm3 (150-450); RBC Distribution Width CV 13.7 % (11.6-14.6); RBC Distribution Width SD 54.2 fl (35.1-43.9); Red Blood Count 3.89 M/mm3 (4.2-5.4); White Blood Count 24.4 K/mm3 (4.4-11.0)
[2020-09-01 12:11] LABS: Differential Indicated SCAN CRITERIA MET
[2020-09-01 12:25] LABS: Anion Gap 12 (5-15); BUN 21 mg/dL (7-18); BUN/Creat Ratio 7.2 RATIO (10-20); Calcium,Total 7.4 mg/dL (8.5-10.1); Chloride 113 mmol/L (98-107); Creatinine, Serum 2.91 mg/dL (0.55-1.02); EST Glomerular Filtration Rate 17 mL/min (>60); Est Glom Filt Rate - Afr Amer 21 mL/min (>60); Glucose 83 mg/dL (74-106); Sodium Level 140 mmol/L (136-145)
== END ==
PROVIDERS: PCP Family Medicine Geriatric Medicine; Visit Provider Family Medicine Geriatric Medicine
DX: R19.7 Diarrhea, unspecified (principal); N17.9 Acute kidney failure, unspecified
CPT/HCPCS: 36415; 80048; 82274; 83630; 85025; 87177; 87209; 87493; 87506

== ENCOUNTER → 2020-09-01 18:29 | Inpatient (IN) | payer MEDICARE, SELFPAY ==
[2020-07-13 12:57] VITALS: BMI 27.0
[2020-09-01 18:32] VITALS: BP 151/95; PULSE 107; RESP 18; TEMP 36.3; O2SAT 98; BMI 27.3
[2020-09-01 18:34] VITALS: BP 151/95; PULSE 107; RESP 18; TEMP 36.3; O2SAT 98
[2020-09-01 19:04] LABS: Absolute Lymphocyte Count 5.79 X10^3/uL (0.83-4.51); Absolute Neutrophil Count 12.1 X10^3/uL (2.0-7.7); Basophil# 0.08 X10^3/uL; Basophil% 0.4 % (0-1); Eosinophil# 0.11 X10^3/uL; Eosinophils% 0.6 % (0-5); Hematocrit 39.5 % (37-47); Hemoglobin 12.9 g/dL (12.0-15.0); Lymphocyte # 5.79 X10^3/ul (4.0); Lymphocyte % 29.5 % (19-41); Mean Corp Hgb Conc 32.7 g/dL (32-36); Mean Corpuscular Hgb 33.1 pg (27.0-32.0); Mean Corpuscular Volume 101.3 fL (81-99); Mean Platelet Vol. 10.6 fl (6.2-12.0); Monocyte# 1.17 X10^3/uL; NRBC Flagged by Analyzer 0 % (0-5); Neutrophil % 61.5 % (47-70); POSITIVE DIFFERENTIAL YES; Platelet Count 410 K/mm3 (150-450); RBC Distribution Width CV 13.8 % (11.6-14.6); RBC Distribution Width SD 51.3 fl (35.1-43.9); White Blood Count 19.6 K/mm3 (4.4-11.0)
[2020-09-01] MEDS: 0.9% Normal Saline 1,000 ML 1000 ML IV (19:05)
[2020-09-01 19:08] LABS: Differential Indicated SCAN CRITERIA MET
[2020-09-01 19:20] LABS: ALB/GLOB Ratio 0.4 RATIO (0.9-2.4); AST(SGOT) 9 U/L (15-37); Alanine Aminotransfer ALT/SGPT 9 U/L (13-56); Albumin, Serum 2.1 g/dL (3.2-5.0); Alkaline Phosphatase 84 U/L (45-117); Anion Gap 10 (5-15); BUN 20 mg/dL (7-18); BUN/Creat Ratio 6.1 RATIO (10-20); Calcium,Total 7.8 mg/dL (8.5-10.1); Chloride 115 mmol/L (98-107); Creatinine, Serum 3.26 mg/dL (0.55-1.02); EST Glomerular Filtration Rate 15 mL/min (>60); Est Glom Filt Rate - Afr Amer 18 mL/min (>60); Estimated Creatinine Clearance 16.66 ml/min; Globulin 5.8 g/dL (2.2-4.2); Glucose 96 mg/dL (74-106); Potassium 2.8 mmol/L (3.5-5.1); Protein, Total 7.9 g/dL (6.4-8.2); Sodium Level 145 mmol/L (136-145)
--- NOTE | 2020-09-01 19:32 | EKG12_ITS ---
Test Reason : VOMITING/NAUSEA Blood Pressure : / mmHG Vent. Rate : 079 BPM Atrial Rate : 079 BPM P-R Int : 154 ms QRS Dur : 100 ms QT Int : 394 ms P-R-T Axes : 056 022 064 degrees QTc Int : 451 ms Normal sinus rhythm Normal ECG Confirmed by DEON CHRISTIAN, RICHARD ([id number]), supervising editor trailer RADHA PHILLIPS ([id number]) on 09/07/2020 8:12:16 AM Referred By: SONU Confirmed By:RICHARD CHAVARRIA MD
[2020-09-01 19:39] VITALS: BP 137/82; PULSE 85; RESP 18; TEMP 36.6; O2SAT 99
[2020-09-01 19:43] LABS: Mucous, Urine 0 SEEN /hpf (<or=2+); Squamous Epithelial Cells - UA 0 SEEN /hpf (5-10)
[2020-09-01 19:53] LABS: Differential Comment SCANNED
[2020-09-01 19:54] LABS: Magnesium 1.5 mg/dL (1.6-2.6)
[2020-09-01 19:58] LABS: Color, Urine Yellow (Yellow); Glucose, Dipstick Normal (Normal); Ketone-Dipstick Negative (Negative); Leukocyte Esterase-Dipstick 500 /ul (Negative); Nitrite-Dipstick Negative (Negative); Occult Blood-Urine 50 /ul (Negative); Protein-Dipstick 30 mg/dl (Negative); Urine Bilirubin Dipstick Negative (Negative); Urine Clarity Sl. Cloudy (Clear); Urine Urobilinogen Normal (Normal); Urine pH 6.5 (5.0 - 8.0)
[2020-09-01 20:00] VITALS: BP 139/80; PULSE 83; RESP 18; TEMP 36.4; O2SAT 96
[2020-09-01 20:39] LABS: Bacteria 1+ /hpf (None Seen); Red Blood Cells-Urine 0-5 SEEN /hpf (0-5); White Blood Cells 25-50 SEEN /hpf (0-5)
[2020-09-01 21:02] VITALS: BP 139/80; PULSE 83; RESP 17; TEMP 36.6; O2SAT 99
--- NOTE | 2020-09-01 21:21 | ED.VIS.GEN ---
History of Present Illness Chief Complaint: Diarrhea Informant: Patient Narrative: 70-year-old female presents with concern for diarrhea. Patient was treated with Keflex and Bactrim approximately 10 days ago for a right lower extremity cellulitis. Patient developed diarrhea over the past 48 to 72 hours. Was seen by her primary care who was concerned for C. difficile colitis. Check labs yesterday and was found to have an elevated white blood cell count. Patient sent to the emergency department for further evaluation. Denies any hematochezia or melena. Denies any significant abdominal pain. States that her doctor was also concern for urinary tract infection. Patient has no symptoms of urinary infection at this time. Past Medical History - Allergies and Home Meds Allergies/Adverse Reactions: Allergies pravastatin Allergy (Verified 07/13/20 12:57) Chest tightness procaine [From Novocain] Allergy (Verified 07/13/20 12:57) NEEDS FOLLOW-UP sulfamethoxazole [From Bactrim] Allergy (Verified 07/13/20 12:57) Shortness of breath trimethoprim [From Bactrim] Allergy (Verified 07/13/20 12:57) Shortness of breath clindamycin Adverse Reaction (Verified 09/01/20 18:31) UNSURE OF REACTION levofloxacin [From Levaquin] Adverse Reaction (Verified 09/01/20 18:31) UNSURE OF REACTION methylprednisolone Adverse Reaction (Verified 07/13/20 12:57) Pain in joints novacaine Allergy (Uncoded 04/09/20 11:19) Unknown Past Medical History: - - CKD, HTN Surgical History: hysterectomy, - - Cholecystectomy; and Mass removed from kidney, rt ureteral stent plaement in 2016 Smoking Status: Former smoker - Family History Paternal Family History: Family History (Last Reviewed 07/13/20 @ 13:14 by Shazia DEY, PA) Father CAD (coronary artery disease) History of coronary artery bypass surgery Family History: Reports: Heart Disease, Hypertension Maternal Family History: Family History (Last Reviewed 07/13/20 @ 13:14 by Shazia DEY, PA) Father CAD (coronary artery disease) History of coronary artery bypass surgery Family History: Reports: Cancer Review of Systems General: Denies: Chills, Fever, Sweats Eyes: Denies: Visual changes - bilaterally, Diplopia ENT: Denies: Rhinorrhea, Sore throat Cardiovascular: Denies: Chest pain, Palpitations Respiratory: Denies: Dyspnea, Cough, Dyspnea on exertion Gastrointestinal: Reports: Diarrhea. Denies: Abdominal pain, Nausea, Vomiting, Melena, Hematochezia Genitourinary: Denies: Dysuria, Hematuria, Frequency Musculoskeletal: Denies: Back pain, Extremity Pain Skin: Denies: Rash, Wounds Neurological: Denies: Headache, Weakness, Numbness Physical Exam Vital Signs/Narrative: Vital Signs Temp Pulse Resp BP Pulse Ox 09/01/20 21:02 97.9 F 83 17 139/80 H 99 09/01/20 20:00 97.6 F L 83 18 139/80 H 96 09/01/20 19:39 97.9 F 85 18 137/82 H 99 09/01/20 18:34 97.4 F L 107 H 18 151/95 H 98 09/01/20 18:32 97.4 F L 107 H 18 151/95 H 98 Inital Vital Signs reviewed: Yes General: Well nourished, Well developed, No Acute Distress Head: Normocephalic, Atraumatic Eyes: Perrl, EOMI ENT: Moist mucous membranes, No rhinorrhea Neck: Supple, Nontender Cardiovascular: Regular rate, Regular rhythm, No murmurs Respiratory: No distress, CTA bilaterally, Chest nontender Abdomen: Soft, Nontender, Nondistended, Normal bowel sounds Back: Nontender, Normal Inspection Extremities: Nontender, No edema Skin: Normal color, No rash Neurological: Alert, Oriented x3, Cranial nerves II-XII grossly intact, Normal Strength, Normal Sensation Psychological: Normal affect, Normal Mood Diagnostic/Tx/Re-eval Laboratory Data 09/01/20 09/01/20 09/01/20 18:55 18:55 18:55 WBC 19.6 H RBC 3.90 L Hgb 12.9 Hct 39.5 MCV 101.3 H MCH 33.1 H MCHC 32.7 RDW Std Deviation 51.3 H RDW Coeff of [place]wey 13.8 Plt Count 410 MPV 10.6 Immature Gran % (Auto) 2.000 H Neut % (Auto) 61.5 Lymph % (Auto) 29.5 [place] % (Auto) 6.0 Eos % (Auto) 0.6 Baso % (Auto) 0.4 Absolute Neuts (auto) 12.1 H Absolute Lymphs (auto) 5.79 H Nucleated RBC % 0 Differential Comment SCANNED Sodium 145 Potassium 2.8 L Chloride 115 H Carbon Dioxide 20.0 L Anion Gap 10 BUN 20 H Creatinine 3.26 H Estim Creat Clear Calc 16.66 Est GFR (MDRD) Af Amer 18 L Est GFR (MDRD) Non-Af 15 L BUN/Creatinine Ratio 6.1 L Glucose 96 Lactic Acid Calcium 7.8 L Magnesium 1.5 L Total Bilirubin 0.20 AST 9 L ALT 9 L Alkaline Phosphatase 84 Total Protein 7.9 Albumin 2.1 L Globulin 5.8 H Albumin/Globulin Ratio 0.4 L Urine Color Urine Clarity Urine pH Ur Specific [place] Urine Protein Urine Glucose (UA) Urine Ketones Urine Occult Blood Urine Nitrite Urine Bilirubin Urine Urobilinogen Ur Leukocyte Esterase Urine RBC Urine WBC Ur Squamous Epith Cells Urine Bacteria Urine Mucus 09/01/20 09/01/20 19:35 19:50 WBC RBC Hgb Hct MCV MCH MCHC RDW Std Deviation RDW Coeff of [place] Plt Count MPV Immature Gran % (Auto) Neut % (Auto) Lymph % (Auto) [place] % (Auto) Eos % (Auto) Baso % (Auto) Absolute Neuts (auto) Absolute Lymphs (auto) Nucleated RBC % Differential Comment Sodium Potassium Chloride Carbon Dioxide Anion Gap BUN Creatinine Estim Creat Clear Calc Est GFR (MDRD) Af Amer Est GFR (MDRD) Non-Af BUN/Creatinine Ratio Glucose Lactic Acid 1.0 Calcium Magnesium Total Bilirubin AST ALT Alkaline Phosphatase Total Protein Albumin Globulin Albumin/Globulin Ratio Urine Color Yellow Urine Clarity Sl. Cloudy Urine pH 6.5 Ur Specific [place] 1.010 Urine Protein 30 H Urine Glucose (UA) Normal Urine Ketones Negative Urine Occult Blood 50 H Urine Nitrite Negative Urine Bilirubin Negative Urine Urobilinogen Normal Ur Leukocyte Esterase 500 H Urine RBC 0-5 SEEN Urine WBC 25-50 SEEN Ur Squamous Epith Cells 0 SEEN Urine Bacteria 1+ Urine Mucus 0 SEEN - Rhythm Strip Rhythm Strip: Sinus Rhythm Rate: 79 Ectopy: None - EKG Initial EKG Interpretation: Sinus Rhythm - Sinus rhythm at 79 bpm. CA interval of 154 ms. QTC of [address] changes. No evidence of ST elevation or depression at this time. - Medical Decision Making Appears well nontoxic. Vital signs within normal limits. Benign abdominal exam. Leukocytosis of 19,000. Hypokalemia of 2.8. Replaced p.o. Patient was given 1 L of normal saline. Acute renal insufficiency above 3 with a baseline of approximately 2. Patient likely has C. difficile colitis. Urine shows evidence of leukocytes as well as white blood cells. Patient's volume depletion as well as hypokalemia and continued diarrhea will be admitted for further treatment and evaluation. Stable at time of admission. Impression: 1. Diarrhea 2. Volume depletion 3. ALOK 4. Hypokalemia ED Disposition - Plan for ED Patient: Disposition: Acute Care Hospital [facility]
[2020-09-01 21:51] VITALS: BMI 27.5
[2020-09-01 22:21] VITALS: BP 138/75; PULSE 82; RESP 20; TEMP 36.7; O2SAT 100
--- NOTE | 2020-09-01 22:48 | HP.PCM_ITS ---
Problem List (1) Problem with dialysis access Status: Suspected Qualifiers: Encounter type: initial encounter Qualified Code(s): T82.898A - Other specified complication of vascular prosthetic devices, implants and grafts, initial encounter (2) Status post placement of implantable loop recorder Status: Chronic (3) History of cardiac catheterization Status: Resolved Comment: normal coronaries (4) Dunbar's palsy Status: Chronic (5) History of hysterectomy Status: Resolved (6) History of cholecystectomy Status: Resolved (7) Cervical cancer Status: Chronic (8) Chronic renal failure, stage 4 (severe) Status: Chronic (9) History of excision of mass Status: Chronic (10) history of radium implant Status: Chronic (11) Near syncope Status: Resolved (12) Essential hypertension Status: Chronic (13) Chronic renal failure, stage 5 Status: Chronic (14) LULY (acute kidney injury) Status: Acute (15) Sepsis Status: Resolved Qualifiers: Sepsis type: sepsis due to unspecified organism Qualified Code(s): A41.9 - Sepsis, unspecified organism (16) Cervical cancer Status: Chronic (17) Bilateral hydronephrosis Status: Chronic Comment: worsening. (18) Acute diarrhea Status: Acute (19) Hyponatremia Status: Chronic (20) Hypokalemia Status: Acute (21) High anion gap metabolic acidosis Status: Resolved (22) Hyperlipidemia Status: Chronic Qualifiers: Hyperlipidemia type: unspecified Qualified Code(s): E78.5 - Hyperlipidemia, unspecified (23) Mild intermittent asthma Status: Chronic History of Present Illness Date of Admission: 09/01/20 Chief Complaint: diarrhea The patient is a 70 year old F presents with diarrhea since Sunday. Patient had been have some abdominal pain but also watery diarrhea. Proximal to 3 weeks ago, she was on antibiotics and saw her primary care doctor was concerned for C. difficile and sent her to the emergency room. In the emergency room, she was found to have a white count of 19,600 and potassium 2.8. Creatinine was elevated from her baseline at 3.26. Baseline being around 2.2. Patient did receive IV fluids as well as potassium replacement. Concern was for C. difficil e and with her ongoing symptoms and other issues it is felt flores to bring the patient in for further hydration and a medical management. [] Past Medical History Past Medical History (Chronic Problems): Chronic Problems (Last Reviewed 07/13/20 @ 13:14 by Shazia Butler PA, PA) Status post placement of implantable loop recorder (Chronic ~03/29/20) Dunbar's palsy (Chronic) Cervical cancer (Chronic) Chronic renal failure, stage 4 (severe) (Chronic) History of excision of mass (Chronic) history of radium implant (Chronic) Essential hypertension (Chronic) Chronic renal failure, stage 5 (Chronic) Cervical cancer (Chronic) Bilateral hydronephrosis (Chronic) worsening. Hyponatremia (Chronic) Hyperlipidemia (Chronic) Mild intermittent asthma (Chronic) Medical History: Medical History (Last Reviewed 09/01/20 @ 22:[address] Rafa Lofton, DO) Problem with dialysis access (Suspected) T82.898A Status post placement of implantable loop recorder (Chronic) Onset Date: ~03/29/20 Z95.818 Dunbar's palsy (Chronic) G51.0 Cervical cancer (Chronic) C53.9 Chronic renal failure, stage 4 (severe) (Chronic) N18.4 Near syncope (Resolved) R55 Essential hypertension (Chronic) I10 Chronic renal failure, stage 5 (Chronic) N18.5 LULY (acute kidney injury) (Acute) N17.9 Sepsis (Resolved) A41.9 Cervical cancer (Chronic) C53.9 Bilateral hydronephrosis (Chronic) N13.30 worsening. Acute diarrhea (Acute) R19.7 Hyponatremia (Chronic) E87.1 Hypokalemia (Acute) E87.6 High anion gap metabolic acidosis (Resolved) E87.2 Hyperlipidemia (Chronic) E78.5 Mild intermittent asthma (Chronic) J45.20 Allergies pravastatin Allergy (Verified 07/13/20 12:57) Chest tightness procaine [From Novocain] Allergy (Verified 09/01/20 22:03) NEEDS FOLLOW-UP Pt doesn't know sulfamethoxazole [From Bactrim] Allergy (Verified 07/13/20 12:57) Shortness of breath trimethoprim [From Bactrim] Allergy (Verified 07/13/20 12:57) Shortness of breath clindamycin Adverse Reaction (Verified 09/01/20 22:03) unsure of reaction She thinks Levaquin or Clindamycin causes trouble breathing & swelling of feet levofloxacin [From Levaquin] Adverse Reaction (Verified 09/01/20 22:03) UNSURE OF REACTION Pt thinks Levaquin or Clindamycin cause difficulty breathing & swelling of feet methylprednisolone Adverse Reaction (Verified 07/13/20 12:57) Pain in joints novacaine Allergy (Uncoded 04/09/20 11:19) Unknown Home Medications: Ambulatory Orders Medication Instructions Recorded albuterol sulfate 90 mcg/actuation 2 puff INHALATION Q6H PRN 07/25/18 aerosol inhaler Metoprolol Tartrate [Lopressor 50 mg PO BID 01/27/19 (beta dustin)] Levothyroxine [Synthroid] 25 mcg PO DAILY 01/09/20 Amlodipine Besylate 2.5 mg PO DAILY 09/01/20 Ipratropium [place] 1 spray INHALATION BID 09/01/20 Potassium Chloride [Klor-Con M20] 20 meq PO DAILY 09/01/20 Surgical History: Surgical History (Last Reviewed 09/01/20 @ 22:[address] 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 Rafa Lofton DO) Father CAD (coronary artery disease) History of coronary artery bypass surgery History Items: Heart Disease, Hypertension Maternal Family History: Family History (Last Reviewed 09/01/20 @ 22:[address] Rafa Lofton DO) Father CAD (coronary artery disease) History of coronary artery bypass surgery History Items: Cancer Review of Systems Constitutional: Denies: Chills, Fever, Weight Change Eyes: Denies: Blurred vision, Double vision HEENT: Denies: Head Aches, Sinus Congestion, Sinus Drainage Cardiovascular: Denies: Chest Pain, Palpitations Respiratory: Denies: Cough, Shortness of breath at rest, Sputum production Gastrointestinal: Reports: Abdominal Pain, Diarrhea. Denies: Nausea, Vomiting Genitourinary: Denies: Dysuria Musculoskeletal: Denies: Joint Pain, Joint Tenderness Skin: Denies: Rash, Wounds Psychiatric: Denies: Anxiety, Depression Hematologic/ Lymphatic: Denies: Easy Bruising, Easy Bleeding, Hx of blood clot Comment: All review of systems were negative except as mentioned above in the history of present illness and the other review of systems. VTE Information - Inpt Only VTE Present on Admission: No VTE Mechan Device Prophylaxis: None VTE Pharm Prophylaxis ordered?: Yes - Physical Exam Vitals/I&O's: Vital Signs Temp Pulse Resp BP Pulse Ox 36.7 C 82 20 H 138/75 H 100 09/01/20 22:21 09/01/20 22:21 09/01/20 22:21 09/01/20 22:21 09/01/20 22:21 Oxygen Delivery Method Room Air Weight: 82.1 kg Body Mass Index (BMI) 27.5 Finger Stick Blood Glucose 92 Intake and Output for Last 24 Hours 08/30/20 08/31/20 09/01/20 23:59 23:59 23:59 Intake Total 1000 / 1000 Balance 1000 / 1000 General: Alert, Cooperative, No apparent distress HEENT: Atraumatic, Normocephalic Neck: No Nodes, Thyroid Normal Size and Texture Lungs: Clear to auscultation, Normal air movement, No rhonchi, No wheeze Cardiovascular: Regular rate, Regular Rhythm, Normal S1, Normal S2, No murmurs Abdomen: Bowel Sounds Present, Soft, Non-Distended, No Hepato-splenomegaly, Tender Extremities: No edema, No Calf Tenderness Skin: No rashes, No breakdown Musculoskeletal: No Tenderness to Palpation of Joints or Extremities, No Muscle Wasting Neurological: Sensory exam intact to light touch and pain, - - no clonus Psych/Mental Status: Normal Affect, Appropriate Laboratory Results 09/01/20 18:55: WBC 19.6 H, RBC 3.90 L, Hgb 12.9, Hct 39.5, MCV 101.3 H, MCH 33.1 H, MCHC 32.7, RDW Std Deviation 51.3 H, RDW Coeff of [place] 13.8, Plt Count 410, MPV 10.6, Immature Gran % (Auto) 2.000 H, Neut % (Auto) 61.5, Lymph % (Auto) 29.5, [place] % (Auto) 6.0, Eos % (Auto) 0.6, Baso % (Auto) 0.4, Absolute Neuts (auto) 12.1 H, Absolute Lymphs (auto) 5.79 H, Nucleated RBC % 0, Differential Comment SCANNED 09/01/20 18:55: Sodium 145, Potassium 2.8 L, Chloride 115 H, Carbon Dioxide 20.0 L, Anion Gap 10, BUN 20 H, Creatinine 3.26 H, Estim Creat Clear Calc 16.66, Est GFR (MDRD) Af Amer 18 L, Est GFR (MDRD) Non-Af 15 L, BUN/Creatinine Ratio 6.1 L, Glucose 96, Calcium 7.8 L, Total Bilirubin 0.20, AST 9 L, ALT 9 L, Alkaline Phosphatase 84, Total Protein 7.9, Albumin 2.1 L, Globulin 5.8 H, Albumin/Globulin Ratio 0.4 L 09/01/20 18:55: Magnesium 1.5 L 09/01/20 19:35: Urine Color Yellow, Urine Clarity Sl. Cloudy, Urine pH 6.5, Ur Specific [place] 1.010, Urine Protein 30 H, Urine Glucose (UA) Normal, Urine Ketones Negative, Urine Occult Blood 50 H, Urine Nitrite Negative, Urine Bilirubin Negative, Urine Urobilinogen Normal, Ur Leukocyte Esterase 500 H, Urine RBC 0-5 SEEN, Urine WBC 25-50 SEEN, Ur Squamous Epith Cells 0 SEEN, Urine Bacteria 1+, Urine Mucus 0 SEEN 09/01/20 19:50: Lactic Acid 1.0 Current Medications Sodium Chloride (0.9% Saline Lock 10 Ml Syringe) 10 - 40 ml IV UD PRN PRN Reason: SALINE FLUSH Assessment/Plan All Active Problems (Last Reviewed 07/13/20 @ 13:14 by Shazia Butler PA, PA) History of cardiac catheterization (Resolved ~01/08/18) History of hysterectomy (Resolved) History of cholecystectomy (Resolved) Near syncope (Resolved) LULY (acute kidney injury) (Acute) Sepsis (Resolved) Acute diarrhea (Acute) Hypokalemia (Acute) High anion gap metabolic acidosis (Resolved) H/O Dunbar's palsy (Resolved) Hx of cervical cancer (Resolved) Urinary tract infection (Resolved) 1. Acute suspected C. difficile colitis: Patient has not yet been able to provide a sample but given the patient's watery diarrhea, absence of fever this is concerning for C. difficile. Patient does have a market leukocytosis, however she has had this chronically. Patient will be given vancomycin 500 mg every 6 hours. Upon discharge would recommend completion of 10 days of vancomycin 125 every 6 hours. 2. Acute kidney injury on chronic kidney disease stage IV: Likely related with prerenal azotemia given the diarrhea and decreased oral intake. I will give pa tient IV fluids and reevaluate. Patient had been on dialysis previously. If there is demonstrated worsening, consider nephrology consultation. Patient has seen Dr. Matthews in the past. 3. Leukocytosis: Appears to be chronic. I do not have a good explanation for this at this time. Recommend outpatient follow-up with oncology 4. Hypokalemia: Likely with the diarrhea. Magnesium is low at 1.5 so this will be replaced as well. 5. VTE prophylaxis with LMWH. 6. Advanced care planning: Patient wishes to be full CODE STATUS. OBSV E&M: [id number] Initial observation care L3
[2020-09-01] MEDS: 0.9% Normal Saline 1,000 ML 150 ML IV (23:22)
[2020-09-02] MEDS: Vancomycin HCl 250 MG Capsule 500 MG PO ×4 (00:27→17:38)
[2020-09-02 03:59] VITALS: BP 125/72; PULSE 90; RESP 18; TEMP 37.1; O2SAT 96
[2020-09-02 06:07] LABS: Absolute Lymphocyte Count 5.76 X10^3/uL (0.83-4.51); Absolute Neutrophil Count 9.7 X10^3/uL (2.0-7.7); Basophil% 0.6 % (0-1); Eosinophil# 0.11 X10^3/uL; Eosinophils% 0.6 % (0-5); Hematocrit 38.3 % (37-47); Hemoglobin 12.1 g/dL (12.0-15.0); Lymphocyte # 5.76 X10^3/ul (4.0); Lymphocyte % 33.1 % (19-41); Mean Corp Hgb Conc 31.6 g/dL (32-36); Mean Corpuscular Hgb 32.9 pg (27.0-32.0); Mean Corpuscular Volume 104.1 fL (81-99); Mean Platelet Vol. 10.5 fl (6.2-12.0); Monocyte# 1.16 X10^3/uL; Monocyte% 6.7 % (0-10); NRBC Flagged by Analyzer 0 % (0-5); Neutrophil # 9.65 X10^3/uL (2.7-7.7); Neutrophil % 55.4 % (47-70); POSITIVE DIFFERENTIAL YES; Platelet Count 390 K/mm3 (150-450); RBC Distribution Width CV 14.1 % (11.6-14.6); RBC Distribution Width SD 54.6 fl (35.1-43.9); Red Blood Count 3.68 M/mm3 (4.2-5.4); White Blood Count 17.4 K/mm3 (4.4-11.0)
[2020-09-02] MEDS: Levothyroxine 25 MCG TABLET PO (06:12)
[2020-09-02 06:13] LABS: Differential Indicated SCAN CRITERIA MET
[2020-09-02 06:52] LABS: Differential Comment SCANNED
[2020-09-02 06:54] LABS: Anion Gap 10 (5-15); BUN 17 mg/dL (7-18); BUN/Creat Ratio 5.8 RATIO (10-20); Calcium,Total 7.2 mg/dL (8.5-10.1); Chloride 117 mmol/L (98-107); Creatinine, Serum 2.93 mg/dL (0.55-1.02); EST Glomerular Filtration Rate 17 mL/min (>60); Est Glom Filt Rate - Afr Amer 21 mL/min (>60); Estimated Creatinine Clearance 18.54 ml/min; Glucose 82 mg/dL (74-106); Potassium 2.7 mmol/L (3.5-5.1); Sodium Level 142 mmol/L (136-145)
--- NOTE | 2020-09-02 07:01 | CPS ---
pt did not want tx at 0700. not given.
--- NOTE | 2020-09-02 07:14 | PCM.PN.HOSP ---
Patient Problems: Active and Suspected Problems (Last Reviewed 09/01/20 @ 22:[address] Rafa Lofton, DO) Problem with dialysis access (Suspected) LULY (acute kidney injury) (Acute) Acute diarrhea (Acute) Hypokalemia (Acute) Reason for Visit: Follow-up on acute diarrhea/C. difficile infection/electrolyte imbalances Subjective: Patient was seen and examined. She has been having frequent stools. About 3 loose bowel movement since morning, small in volume. No bleeding seen. She denied any fever or chills or nausea or vomiting or dizziness or chest pain. Objective: Physical exam: General: Alert, Cooperative, No apparent distress HEENT: Atraumatic, Normocephalic Neck: No Nodes, Thyroid Normal Size and Texture Lungs: Clear to auscultation, Normal air movement, No rhonchi, No wheeze Cardiovascular: Regular rate, Regular Rhythm, Normal S1, Normal S2, No murmurs Abdomen: Bowel Sounds Present, Soft, Non-Distended, No Hepato-splenomegaly, Tender Extremities: No edema, No Calf Tenderness Skin: No rashes, No breakdown Musculoskeletal: No Tenderness to Palpation of Joints or Extremities, No Muscle Wasting Neurological: Sensory exam intact to light touch and pain, - - no clonus Psych/Mental Status: Normal Affect, Appropriate Vitals/I&O's: Vital Signs Temp Pulse Resp BP Pulse Ox 98.8 F 90 18 125/72 H 96 09/02/20 03:59 09/02/20 03:59 09/02/20 03:59 09/02/20 03:59 09/02/20 03:59 Oxygen Delivery Method Room Air Weight: 82.1 kg Body Mass Index (BMI) 27.5 Finger Stick Blood Glucose 92 Intake and Output for Last 24 Hours 08/31/20 09/01/20 09/02/20 23:59 23:59 23:59 Intake Total 1600 / 1600 1450 / 1450 Balance 1600 / 1600 1450 / 1450 Laboratory Results 09/01/20 18:55: WBC 19.6 H, RBC 3.90 L, Hgb 12.9, Hct 39.5, MCV 101.3 H, MCH 33.1 H, MCHC 32.7, RDW Std Deviation 51.3 H, RDW Coeff of Dewey 13.8, Plt Count 410, MPV 10.6, Immature Gran % (Auto) 2.000 H, Neut % (Auto) 61.5, Lymph % (Auto) 29.5, Todd % (Auto) 6.0, Eos % (Auto) 0.6, Baso % (Auto) 0.4, Absolute Neuts (auto) 12.1 H, Absolute Lymphs (auto) 5.79 H, Nucleated RBC % 0, Differential Comment SCANNED 09/01/20 18:55: Sodium 145, Potassium 2.8 L, Chloride 115 H, Carbon Dioxide 20.0 L, Anion Gap 10, BUN 20 H, Creatinine 3.26 H, Estim Creat Clear Calc 16.66, Est GFR (MDRD) Af Amer 18 L, Est GFR (MDRD) Non-Af 15 L, BUN/Creatinine Ratio 6.1 L, Glucose 96, Calcium 7.8 L, Total Bilirubin 0.20, AST 9 L, ALT 9 L, Alkaline Phosphatase 84, Total Protein 7.9, Albumin 2.1 L, Globulin 5.8 H, Albumin/Globulin Ratio 0.4 L 09/01/20 18:55: Magnesium 1.5 L 09/01/20 19:35: Urine Color Yellow, Urine Clarity Sl. Cloudy, Urine pH 6.5, Ur Specific [place] 1.010, Urine Protein 30 H, Urine Glucose (UA) Normal, Urine Ketones Negative, Urine Occult Blood 50 H, Urine Nitrite Negative, Urine Bilirubin Negative, Urine Urobilinogen Normal, Ur Leukocyte Esterase 500 H, Urine RBC 0-5 SEEN, Urine WBC 25-50 SEEN, Ur Squamous Epith Cells 0 SEEN, Urine Bacteria 1+, Urine Mucus 0 SEEN 09/01/20 19:50: Lactic Acid 1.0 09/02/20 05:25: WBC 17.4 H, RBC 3.68 L, Hgb 12.1, Hct 38.3, MCV 104.1 H, MCH 32.9 H, MCHC 31.6 L, RDW Std Deviation 54.6 H, RDW Coeff of Dewey 14.1, Plt Count 390, MPV 10.5, Immature Gran % (Auto) 3.600 H, Neut % (Auto) 55.4, Lymph % (Auto) 33.1, Todd % (Auto) 6.7, Eos % (Auto) 0.6, Baso % (Auto) 0.6, Absolute Neuts (auto) 9.7 H, Absolute Lymphs (auto) 5.76 H, Nucleated RBC % 0, Differential Comment SCANNED 09/02/20 05:25: Sodium 142, Potassium 2.7 L*, Chloride 117 H, Carbon Dioxide 15.0 L, Anion Gap 10, BUN 17, Creatinine 2.93 H, Estim Creat Clear Calc 18.54, Est GFR (MDRD) Af Amer 21 L, Est GFR (MDRD) Non-Af 17 L, BUN/Creatinine Ratio 5.8 L, Glucose 82, Calcium 7.2 L Current Medications Acetaminophen (Acetaminophen 325 Mg Tablet) 650 mg PO Q6H PRN PRN PRN Reason: Pain Score 1-10/Temp > 100.7 F Albuterol Sulfate (Albuterol 2.5 Mg/3 Ml Vial.Neb.) 2.5 mg INHALATION Q4H PRN PRN PRN Reason: SOB &/OR WHEEZING Amlodipine Besylate (Amlodipine 2.5 Mg Tablet) 2.5 mg PO DAILY [facility] Enoxaparin Sodium (Enoxaparin 30 Mg/0.3 Ml Syringe) 30 mg SC DAILY [facility] Potassium Chloride () 10 meq in 100 mls @ 100 mls/hr IV BOLUS Q1H [facility] Stop: 09/02/20 11:14 Ipratropium [place] (Ipratropium 0.5 Mg/2.5 Ml Solution) 0.5 mg INHALATION Q6HWA.RT [facility] Levothyroxine Sodium (Levothyroxine 25 Mcg Tablet) 25 mcg PO DAILY@0600 [facility] Last Admin: 09/02/20 06:12 Dose: 25 mcg Documented by: Metoprolol Tartrate (Metoprolol Tartrate 50 Mg Tablet) 50 mg PO BID [facility] Ondansetron HCl (Ondansetron 4 Mg/2 Ml Vial) 4 mg IV Q8H PRN PRN PRN Reason: NAUSEA/VOMITING Oxycodone HCl (Oxycodone 5 Mg Tablet) 5 mg PO Q4H PRN PRN PRN Reason: Pain Score 4-5 Oxycodone HCl (Oxycodone 5 Mg Tablet) 10 mg PO Q4H PRN PRN PRN Reason: Pain Score 6-10 Potassium Chloride (Potassium Chloride 20 Meq Tablet) [facility] Vancomycin HCl (Vancomycin Hcl 250 Mg Capsule) 500 mg PO Q6 [facility] Last Admin: 09/02/20 06:12 Dose: 500 mg Documented by: STROKE Vital Signs/Narrative: Vital Signs Temp Pulse Resp BP Pulse Ox 09/02/20 03:59 98.8 F 90 18 125/72 H 96 Medical Necessity - Tobacco Use Smoking Status: Former smoker Assessment/Plan All Active Problems (Last Reviewed 09/01/20 @ 22:[address] Rafa Lofton, DO) History of cardiac catheterization (Resolved ~01/08/18) History of hysterectomy (Resolved) History of cholecystectomy (Resolved) Near syncope (Resolved) LULY (acute kidney injury) (Acute) Sepsis (Resolved) Acute diarrhea (Acute) Hypokalemia (Acute) High anion gap metabolic acidosis (Resolved) H/O Dunbar's palsy (Resolved) Hx of cervical cancer (Resolved) Urinary tract infection (Resolved) 1. Acute C. difficile colitis, seen on blood sample sent in the outpatient Started on oral vancomycin, encouraged on good hand hygiene, strict I's and O's, Strict stool charting 2. Acute kidney injury on CKD stage IV, renal secondary to #1 baseline creatinine of 2.2. Patient was admitted with creatinine of 3.26 Continue on IV fluids, repeat blood work in a.m. 3. Hypokalemia, severe, potassium remains at 2.7, replaced orally and IV Check in a.m. 4. Hypomagnesemia, severe, measures 1.5, replace, recheck in a.m. 5. Hypertension, controlled, continue on amlodipine and metoprolol 6. Hypothyroidism, continue on Synthroid 7. DVT prophylaxis -Lovenox subcu Inpatient E&M: 85964 Subs Hosp L2
[2020-09-02 07:30] LABS: Magnesium 1.5 mg/dL (1.6-2.6)
[2020-09-02] MEDS: Potassium Chloride 10mEq/100mL 10 MEQ/100 ML IV.SOLN. 100 MEQ IV BOLUS ×4 (08:50→13:58)
[2020-09-02 08:54] VITALS: PULSE 94
[2020-09-02] MEDS: Metoprolol Tartrate 50 MG Tablet PO ×2 (08:54→21:10)
[2020-09-02] MEDS: Enoxaparin 30 MG/0.3 ML Syringe SC (08:54)
[2020-09-02] MEDS: amLODIPine 2.5 MG Tablet PO (08:54)
[2020-09-02 08:59] VITALS: BP 148/89; PULSE 94; RESP 16; TEMP 36.6; O2SAT 97
--- NOTE | 2020-09-02 13:03 | CPS ---
pt did not want tx at 1300. not given. says she will call if she feels that she needs a breathing tx.
[2020-09-02 14:05] VITALS: BP 138/79; PULSE 73; RESP 18; TEMP 36.3; O2SAT 95
[2020-09-02 21:10] VITALS: PULSE 82
[2020-09-02 21:30] VITALS: BP 150/93; PULSE 82; RESP 16; TEMP 36.4; O2SAT 98
--- NOTE | 2020-09-02 21:38 | CPS ---
Pt refused aerosol tx at 1850
[2020-09-03] MEDS: Vancomycin HCl 250 MG Capsule 500 MG PO ×5 (00:03→23:00)
[2020-09-03 03:30] VITALS: BP 135/70; PULSE 75; RESP 16; TEMP 36.6; O2SAT 98
[2020-09-03] MEDS: Levothyroxine 25 MCG TABLET PO (05:33)
[2020-09-03 05:45] LABS: Hematocrit 42.6 % (37-47); Hemoglobin 12.9 g/dL (12.0-15.0); Mean Corp Hgb Conc 30.3 g/dL (32-36); Mean Corpuscular Hgb 32.5 pg (27.0-32.0); Mean Corpuscular Volume 107.3 fL (81-99); Mean Platelet Vol. 10.7 fl (6.2-12.0); POSITIVE COUNT YES; POSITIVE MORPHOLOGY YES; Platelet Count 339 K/mm3 (150-450); RBC Distribution Width CV 14.4 % (11.6-14.6); RBC Distribution Width SD 56.6 fl (35.1-43.9); Red Blood Count 3.97 M/mm3 (4.2-5.4); White Blood Count 12.4 K/mm3 (4.4-11.0)
[2020-09-03 05:51] LABS: Differential Indicated MANUAL DIFF
[2020-09-03 06:04] LABS: ALB/GLOB Ratio 0.3 RATIO (0.9-2.4); AST(SGOT) 12 U/L (15-37); Alanine Aminotransfer ALT/SGPT 10 U/L (13-56); Albumin, Serum 1.7 g/dL (3.2-5.0); Alkaline Phosphatase 76 U/L (45-117); Anion Gap 7 (5-15); BUN 12 mg/dL (7-18); BUN/Creat Ratio 4.6 RATIO (10-20); Calcium,Total 7.9 mg/dL (8.5-10.1); Chloride 122 mmol/L (98-107); Creatinine, Serum 2.62 mg/dL (0.55-1.02); EST Glomerular Filtration Rate 19 mL/min (>60); Est Glom Filt Rate - Afr Amer 23 mL/min (>60); Estimated Creatinine Clearance 20.73 ml/min; Globulin 5.4 g/dL (2.2-4.2); Glucose 74 mg/dL (74-106); Potassium 3.7 mmol/L (3.5-5.1); Protein, Total 7.1 g/dL (6.4-8.2); Sodium Level 142 mmol/L (136-145)
[2020-09-03 06:39] LABS: Total Cells Counted 100 (MANUAL DIFF)
[2020-09-03 06:44] LABS: Eosinophil 2 % (0-5); Lymphocyte 33 % (19-41); Metamyelocyte 3 % (0-1); Monocyte 4 % (0-10); Neutrophil-Band 3 % (0-5); Neutrophil-Segmented 55 % (47-70); Platelet Estimate ADEQUATE (ADEQ)
[2020-09-03 06:45] LABS: Absolute Neutrophil Count 7.2 X10^3/uL (2.0-7.7)
[2020-09-03 06:46] LABS: Absolute Lymphocyte Count 4.07 X10^3/uL (0.83-4.51); Lymphocyte # 4.07 X10^3/ul (4.0)
[2020-09-03 08:28] LABS: Magnesium 2.2 mg/dL (1.6-2.6)
--- NOTE | 2020-09-03 09:21 | CPS ---
PT REFUSED BREATHING TREATMENT AT 0800. UNABLE TO DOCUMENT REFUSAL ON JAN.
--- NOTE | 2020-09-03 10:15 | CASEMGMT ---
RN KAYA Face to Face with patient for initial transition planning/care coordination assessment. RN CM introduced self and role at [facility]. Patient lying in bed, alert and oriented. Patient willing to participate in assessment and is able to answer all questions appropriately. Care providers, pharmacy, and demographics verified. Patient wishes to discharge home, denies need for home health at this time. Patient states she has no further needs or concerns at this time. CM to follow for discharge planning needs that may arise. PCP: Ricky Specialists: Byron, assistant auto center manager; Darnell, septic tank installer; Em, urology Preferred Pharmacy: [facility] Insurance: [employer] Prescription Benefit: yes Living Will/HPOA: none LNOK: Living Arrangements: Patient lives with in a 2 story home with bed and bath on 1st floor. Patient independent and able to ambulate stairs Transportation: DME/HHC: Patient states she has shower chair and walker at home. Patient denies previous HHC. Disposition Plan: Patient to discharge home with family support and follow-up plans in place. Elena LIMA, RN, CM
[2020-09-03 10:42] VITALS: PULSE 78
[2020-09-03] MEDS: Metoprolol Tartrate 50 MG Tablet PO ×2 (10:42→22:41)
[2020-09-03] MEDS: amLODIPine 2.5 MG Tablet PO ×2 (10:42→14:26)
[2020-09-03] MEDS: Enoxaparin 30 MG/0.3 ML Syringe SC (10:42)
[2020-09-03 10:44] VITALS: BP 154/85; PULSE 78; RESP 18; TEMP 36.8; O2SAT 98
[2020-09-03 12:50] LABS: Pathologist Review Reviewed
--- NOTE | 2020-09-03 13:13 | PCM.PN.HOSP ---
Patient Problems: Active and Suspected Problems (Last Reviewed 09/01/20 @ 22:[address] Rafa Lofton, DO) Problem with dialysis access (Suspected) LULY (acute kidney injury) (Acute) Acute diarrhea (Acute) Hypokalemia (Acute) Reason for Visit: Follow-up on acute diarrhea/C. difficile infection/electrolyte imbalances Subjective: Patient was seen and examined. She still has a fair amount of diarrhea. Denied any fever chills or dizziness Objective: Physical exam: General: Alert, Cooperative, No apparent distress HEENT: Atraumatic, Normocephalic Neck: No Nodes, Thyroid Normal Size and Texture Lungs: Clear to auscultation, Normal air movement, No rhonchi, No wheeze Cardiovascular: Regular rate, Regular Rhythm, Normal S1, Normal S2, No murmurs Abdomen: Bowel Sounds Present, Soft, Non-Distended, No Hepato-splenomegaly, Tender Extremities: No edema, No Calf Tenderness Skin: No rashes, No breakdown Musculoskeletal: No Tenderness to Palpation of Joints or Extremities, No Muscle Wasting Neurological: Sensory exam intact to light touch and pain Psych/Mental Status: Normal Affect, Appropriate Vitals/I&O's: Vital Signs Temp Pulse Resp BP Pulse Ox 98.2 F 78 18 154/85 H 98 09/03/20 10:44 09/03/20 10:44 09/03/20 10:44 09/03/20 10:44 09/03/20 10:44 Oxygen Delivery Method Room Air Weight: 82.1 kg Body Mass Index (BMI) 27.5 Finger Stick Blood Glucose 92 Intake and Output for Last 24 Hours 09/01/20 09/02/20 09/03/20 23:59 23:59 23:59 Intake Total 1600 / 1600 3004 / 3004 1500 / 1500 Balance 1600 / 1600 3004 / 3004 1500 / 1500 Microbiology Past 72 Hours 09/01/20 19:35 Urine, Clean Catch Urine Culture - Final Mixed Gram Positive Organisms Laboratory Results 09/03/20 05:20: WBC 12.4 H, RBC 3.97 L, Hgb 12.9, Hct 42.6, MCV 107.3 H, MCH 32.5 H, MCHC 30.3 L, RDW Std Deviation 56.6 H, RDW Coeff of Dewey 14.4, Plt Count 339, MPV 10.7, Neut % (Auto) Not Reportable, Absolute Neuts (auto) 7.2, Absolute Lymphs (auto) 4.07, Total Counted 100, Neutrophils % (Manual) 55, Band Neutrophils % 3, Lymphocytes % (Manual) 33, Monocytes % (Manual) 4, Eosinophils % (Manual) 2, Metamyelocytes % 3 H, Diff Path Review Reviewed, Platelet Estimate ADEQUATE 09/03/20 05:20: Sodium 142, Potassium 3.7, Chloride 122 H, Carbon Dioxide 13.0 L, Anion Gap 7, BUN 12, Creatinine 2.62 H, Estim Creat Clear Calc 20.73, Est GFR (MDRD) Af Amer 23 L, Est GFR (MDRD) Non-Af 19 L, BUN/Creatinine Ratio 4.6 L, Glucose 74, Calcium 7.9 L, Total Bilirubin 0.20, AST 12 L, ALT 10 L, Alkaline Phosphatase 76, Total Protein 7.1, Albumin 1.7 L, Globulin 5.4 H, Albumin/Globulin Ratio 0.3 L 09/03/20 05:20: Magnesium 2.2 Current Medications Acetaminophen (Acetaminophen 325 Mg Tablet) 650 mg PO Q6H PRN PRN PRN Reason: Pain Score 1-10/Temp > 100.7 F Albuterol Sulfate (Albuterol 2.5 Mg/3 Ml Vial.Neb.) 2.5 mg INHALATION Q4H PRN PRN PRN Reason: SOB &/OR WHEEZING Amlodipine Besylate (Amlodipine 2.5 Mg Tablet) 2.5 mg PO DAILY [facility] Last Admin: 09/03/20 10:42 Dose: 2.5 mg Documented by: Enoxaparin Sodium (Enoxaparin 30 Mg/0.3 Ml Syringe) 30 mg SC DAILY [facility] Last Admin: 09/03/20 10:42 Dose: 30 mg Documented by: Ipratropium [place] (Ipratropium 0.5 Mg/2.5 Ml Solution) 0.5 mg INHALATION Q6HWA.RT [facility] Levothyroxine Sodium (Levothyroxine 25 Mcg Tablet) 25 mcg PO DAILY@0600 [facility] Last Admin: 09/03/20 05:33 Dose: 25 mcg Documented by: Metoprolol Tartrate (Metoprolol Tartrate 50 Mg Tablet) 50 mg PO BID [facility] Last Admin: 09/03/20 10:42 Dose: 50 mg Documented by: Ondansetron HCl (Ondansetron 4 Mg/2 Ml Vial) 4 mg IV Q8H PRN PRN PRN Reason: NAUSEA/VOMITING Oxycodone HCl (Oxycodone 5 Mg Tablet) 5 mg PO Q4H PRN PRN PRN Reason: Pain Score 4-5 Oxycodone HCl (Oxycodone 5 Mg Tablet) 10 mg PO Q4H PRN PRN PRN Reason: Pain Score 6-10 Potassium Chloride (Potassium Chloride 20 Meq Tablet) 20 meq PO DAILYCM [facility] Last Admin: 09/03/20 10:42 Dose: 20 meq Documented by: Vancomycin HCl (Vancomycin Hcl 250 Mg Capsule) 500 mg PO Q6 [facility] Last Admin: 09/03/20 12:23 Dose: 500 mg Documented by: STROKE Vital Signs/Narrative: Vital Signs Temp Pulse Resp BP Pulse Ox 09/03/20 10:44 98.2 F 78 18 154/85 H 98 09/03/20 10:42 78 Medical Necessity - Tobacco Use Smoking Status: Former smoker Assessment/Plan All Active Problems (Last Reviewed 09/01/20 @ 22:[address] Rafa Lofton, DO) History of cardiac catheterization (Resolved ~01/08/18) History of hysterectomy (Resolved) History of cholecystectomy (Resolved) Near syncope (Resolved) LULY (acute kidney injury) (Acute) Sepsis (Resolved) Acute diarrhea (Acute) Hypokalemia (Acute) High anion gap metabolic acidosis (Resolved) H/O Dunbar's palsy (Resolved) Hx of cervical cancer (Resolved) Urinary tract infection (Resolved) 1. Acute C. difficile colitis, not much improved, still with frequent bowel movements. Continue on oral vancomycin, encouraged on good hand hygiene, strict I's and O's, Strict stool charting 2. Acute kidney injury on CKD stage IV, pre-renalsecondary to #1; baseline creatinine of 2.2. Patient was admitted with creatinine of 3.26. Creatinine today is 2.62 Continue on IV fluids, repeat blood work in a.m. 3. Hypokalemia, resolved 4. Hypomagnesemia, resolved 5. Hypertension, fairly uncontrolled, continue on amlodipine and metoprolol 6. Hypothyroidism, continue on Synthroid 7. DVT prophylaxis -Lovenox subcu Inpatient E&M: 11920 Subs Hosp L2
--- NOTE | 2020-09-03 13:53 | CPS ---
pt refused aersol tx at this time. unable to document on Jan.
[2020-09-03 14:27] VITALS: BP 102/65; PULSE 75; RESP 18; TEMP 36.6; O2SAT 98
--- NOTE | 2020-09-03 21:00 | CPS ---
Patient refused Atrovent aerosol tx at 1830. Unable to document against in the MAR
[2020-09-03 22:32] VITALS: BP 146/76; PULSE 80; O2SAT 99
[2020-09-03] MEDS: 0.9% Saline Lock 10 ML Syringe IV (22:43)
[2020-09-04 04:24] VITALS: BP 145/84; PULSE 75; RESP 20; TEMP 36.7; O2SAT 98
[2020-09-04 06:29] LABS: Absolute Lymphocyte Count 4.64 X10^3/uL (0.83-4.51); Absolute Neutrophil Count 6.1 X10^3/uL (2.0-7.7); Basophil# 0.12 X10^3/uL; Eosinophil# 0.23 X10^3/uL; Eosinophils% 1.8 % (0-5); Hemoglobin 12.7 g/dL (12.0-15.0); Lymphocyte # 4.64 X10^3/ul (4.0); Mean Corpuscular Hgb 32.5 pg (27.0-32.0); Mean Corpuscular Volume 104.9 fL (81-99); Mean Platelet Vol. 10.1 fl (6.2-12.0); Monocyte# 0.97 X10^3/uL; Monocyte% 7.7 % (0-10); NRBC Flagged by Analyzer 0 % (0-5); Neutrophil # 6.09 X10^3/uL (2.7-7.7); Neutrophil % 48.6 % (47-70); Platelet Count 379 K/mm3 (150-450); RBC Distribution Width CV 14.3 % (11.6-14.6); RBC Distribution Width SD 55.3 fl (35.1-43.9); Red Blood Count 3.91 M/mm3 (4.2-5.4); White Blood Count 12.5 K/mm3 (4.4-11.0)
[2020-09-04] MEDS: Vancomycin HCl 250 MG Capsule 500 MG PO (06:40)
[2020-09-04] MEDS: Levothyroxine 25 MCG TABLET PO (06:40)
[2020-09-04 07:32] LABS: ALB/GLOB Ratio 0.4 RATIO (0.9-2.4); AST(SGOT) 7 U/L (15-37); Alanine Aminotransfer ALT/SGPT 9 U/L (13-56); Albumin, Serum 1.9 g/dL (3.2-5.0); Alkaline Phosphatase 83 U/L (45-117); Anion Gap 8 (5-15); BUN 12 mg/dL (7-18); BUN/Creat Ratio 4.6 RATIO (10-20); Calcium,Total 7.8 mg/dL (8.5-10.1); Chloride 121 mmol/L (98-107); Creatinine, Serum 2.59 mg/dL (0.55-1.02); EST Glomerular Filtration Rate 20 mL/min (>60); Est Glom Filt Rate - Afr Amer 24 mL/min (>60); Estimated Creatinine Clearance 20.97 ml/min; Globulin 5.3 g/dL (2.2-4.2); Glucose 80 mg/dL (74-106); Potassium 3.1 mmol/L (3.5-5.1); Protein, Total 7.2 g/dL (6.4-8.2); Sodium Level 143 mmol/L (136-145)
--- NOTE | 2020-09-04 08:27 | CPS ---
pt has been refusing aersols at this time. unable to document on Jan.
--- NOTE | 2020-09-04 08:46 | DCINST_ITS ---
- Discharge Diagnoses Current Active Problems: Current Active and Chronic Problems (Last Reviewed 09/01/20 @ 22:[address] Rafa Lofton, DO) Status post placement of implantable loop recorder (Chronic ~03/29/20) Dunbar's palsy (Chronic) Cervical cancer (Chronic) Chronic renal failure, stage 4 (severe) (Chronic) History of excision of mass (Chronic) history of radium implant (Chronic) Essential hypertension (Chronic) Chronic renal failure, stage 5 (Chronic) LULY (acute kidney injury) (Acute) Cervical cancer (Chronic) Bilateral hydronephrosis (Chronic) worsening. Acute diarrhea (Acute) Hyponatremia (Chronic) Hypokalemia (Acute) Hyperlipidemia (Chronic) Mild intermittent asthma (Chronic) Reason(s) for Visit for Discharge Instructions: Acute Cdiff You will use the following diet at home:: Cardiac Your food should be the consistency of: Regular Your liquids should be the consistency of: Regular/Thin Discharge Activity: Return to Normal Activity Additional Instructions: Continue to keep yourself hydrated. Complete your antibiotics. Keep strict hand hygiene and keep your surroundings including bathroom clean with bleaching. Follow-up within a week with your primary care doctor for repeat blood work to check on your kidneys. You have also been prescribed probiotics. Allergies/Adverse Reactions: Allergies pravastatin Allergy (Verified 07/13/20 12:57) Chest tightness procaine [From Novocain] Allergy (Verified 09/01/20 22:03) NEEDS FOLLOW-UP Pt doesn't know sulfamethoxazole [From Bactrim] Allergy (Verified 07/13/20 12:57) Shortness of breath trimethoprim [From Bactrim] Allergy (Verified 07/13/20 12:57) Shortness of breath clindamycin Adverse Reaction (Verified 09/01/20 22:03) unsure of reaction She thinks Levaquin or Clindamycin causes trouble breathing & swelling of feet levofloxacin [From Levaquin] Adverse Reaction (Verified 09/01/20 22:03) UNSURE OF REACTION Pt thinks Levaquin or Clindamycin cause difficulty breathing & swelling of f eet methylprednisolone Adverse Reaction (Verified 07/13/20 12:57) Pain in joints novacaine Allergy (Uncoded 04/09/20 11:19) Unknown Medications to take at Discharge albuterol sulfate 90 mcg/actuation aerosol inhaler 2 puff INHALATION Q6H PRN 09/06/18 Metoprolol Tartrate [Lopressor (beta dustin)] 50 mg PO BID 01/27/19 Levothyroxine [Synthroid] 25 mcg PO DAILY 01/09/20 Ipratropium [place] 1 spray INHALATION BID 09/01/20 Potassium Chloride [Klor-Con M20] 20 meq PO DAILY 09/01/20 Amlodipine [Norvasc] 5 mg PO DAILY 30 Days #30 tab 09/04/20 Lactobacillus Acidophilus [Acidophilus] 2 tab PO 4X/DAY 7 Days #56 tab 09/04/20 Vancomycin HCl 500 mg PO Q6 8 Days #32 cap 09/04/20 The following prescriptions were given: Lactobacillus Acidophilus [Acidophilus] 2 tab PO 4X/DAY 7 Days #56 tab Transmission Status: Pending to [id number] Amlodipine [Norvasc] 5 mg PO DAILY 30 Days #30 tab Transmission Status: Pending to [id number] Vancomycin HCl 500 mg PO Q6 8 Days #32 cap Transmission Status: Pending to [id number] Primary Care Physician: Gerardo García Chi, MD [Primary Care Provider] - Please follow up with your Primary Care Physician in: within 1-2 weeks Test Results: Test results from this visit will be discussed in further detail at your follow- up appointment, if applicable. Proposed Discharge Date: 09/04/20
--- NOTE | 2020-09-04 08:49 | DS.PCM_ITS ---
Discharge Date and Diagnosis - Problem List Patient Problems: Active and Suspected Problems (Last Reviewed 09/01/20 @ 22:[address] Rafa Lofton DO) Problem with dialysis access (Suspected) LULY (acute kidney injury) (Acute) Acute diarrhea (Acute) Hypokalemia (Acute) Date of Admission: 09/01/20 Date of Discharge: 09/04/20 - Primary Discharge Diagnosis Acute Problems: Active Problems (Last Reviewed 09/01/20 @ 22:[address] Rafa Lofton DO) 1. Acute C. difficile infection/colitis, severe 2. Acute kidney injury on CKD stage IV, pre-renal secondary to #1 3. Hypokalemia 4. Hypomagnesemia Suspected Problems: Suspected Problems (Last Reviewed 09/01/20 @ 22:[address] Rafa Lofton DO) Problem with dialysis access (Suspected) - Secondary Discharge Diagnosis Chronic Problems: Chronic Problems (Last Reviewed 09/01/20 @ 22:[address] Rafa Lofton DO) Status post placement of implantable loop recorder (Chronic ~03/29/20) Dunbar's palsy (Chronic) Cervical cancer (Chronic) Chronic renal failure, stage 4 (severe) (Chronic) History of excision of mass (Chronic) history of radium implant (Chronic) Essential hypertension (Chronic) Chronic renal failure, stage 5 (Chronic) Cervical cancer (Chronic) Bilateral hydronephrosis (Chronic) worsening. Hyponatremia (Chronic) Hyperlipidemia (Chronic) Mild intermittent asthma (Chronic) Hospital Course and Treatment Operations: None, - - 05/31/19 Ultrasound-guided right IJ temporary dialysis catheter insertion, 06/04/19 19 cm pre-curved right internal jugular double- lumen hemodialysis catheter placement, 06/06/19 Ultrasound-guided left internal jugular pre-curved 23 cm palindrome catheter placement, removal right internal jugular palindrome catheter. Procedures: None Summary of Care Provided: The patient is a 70 year old F with multiple comorbidities who was admitted with diarrhea ongoing for more than 4 days. Patient was recently on antibiotics. Her white cell count was elevated at 19,600, her potassium was 2.8, magnesium was 1.5, creatinine was 3.26, baseline creatinine was around 2.2. Patient's stool was positive for C. difficile. This sample was taking in the outpatient a day prior to admission. Patient was admitted to [facility] floor, given IV fluids electrolytes were replaced. Her creatinine improved. She was also started on oral vancomycin. Patient continued to improve and was discharged to continue vancomycin for total of 10 days. She will follow-up with the primary care doctor within 2 weeks. She knows that she needs a repeat blood work to be done within a week to follow-up on the electrolyte imbalances and kidney function. Patient Problems: Active and Suspected Problems (Last Reviewed 09/01/20 @ 22:[address] Rafa Lofton, DO) Problem with dialysis access (Suspected) LULY (acute kidney injury) (Acute) Acute diarrhea (Acute) Hypokalemia (Acute) Subjective: On the day of discharge, patient was seen and examined. She had no bowel movements on the day of discharge or the night prior. Denied any fever or chills abdominal pain. Objective: Physical exam: General: Alert, Cooperative, No apparent distress HEENT: Atraumatic, Normocephalic Neck: No Nodes, Thyroid Normal Size and Texture Lungs: Clear to auscultation, Normal air movement, No rhonchi, No wheeze Cardiovascular: Regular rate, Regular Rhythm, Normal S1, Normal S2, No murmurs Abdomen: Bowel Sounds Present, Soft, Non-Distended, No Hepato-splenomegaly, Tender Extremities: No edema, No Calf Tenderness Skin: No rashes, No breakdown Musculoskeletal: No Tenderness to Palpation of Joints or Extremities, No Muscle Wasting Neurological: Sensory exam intact to light touch and pain Psych/Mental Status: Normal Affect, Appropriate - Physical Exam Vitals/I&O's: Vital Signs Temp Pulse Resp BP Pulse Ox 98.0 F 75 20 H 145/84 H 98 09/04/20 04:24 09/04/20 04:24 09/04/20 04:24 09/04/20 04:24 09/04/20 04:24 Oxygen Delivery Method Room Air Weight: 82.1 kg Body Mass Index (BMI) 27.5 Finger Stick Blood Glucose 92 Intake and Output for Last 24 Hours 09/02/20 09/03/20 09/04/20 23:59 23:59 23:59 Intake Total 3004 / 3004 2450 / 2450 200 / 200 Balance 3004 / 3004 2450 / 2450 200 / 200 Microbiology Past 72 Hours 09/01/20 19:35 Urine, Clean Catch Urine Culture - Final Mixed Gram Positive Organisms Laboratory Results 09/03/20 05:20: Diff Path Review Reviewed 09/04/20 06:22: WBC 12.5 H, RBC 3.91 L, Hgb 12.7, Hct 41.0, MCV 104.9 H, MCH 32.5 H, MCHC 31.0 L, RDW Std Deviation 55.3 H, RDW Coeff of Dewey 14.3, Plt Count 379, MPV 10.1, Immature Gran % (Auto) 3.900 H, Neut % (Auto) 48.6, Lymph % (Auto) 37.0, [place] % (Auto) 7.7, Eos % (Auto) 1.8, Baso % (Auto) 1.0, Absolute Neuts (auto) 6.1, Absolute Lymphs (auto) 4.64 H, Nucleated RBC % 0 09/04/20 06:22: Sodium 143, Potassium 3.1 L, Chloride 121 H, Carbon Dioxide 14.0 L, Anion Gap 8, BUN 12, Creatinine 2.59 H, Estim Creat Clear Calc 20.97, Est GFR (MDRD) Af Amer 24 L, Est GFR (MDRD) Non-Af 20 L, BUN/Creatinine Ratio 4.6 L, Glucose 80, Calcium 7.8 L, Total Bilirubin 0.30, AST 7 L, ALT 9 L, Alkaline Phosphatase 83, Total Protein 7.2, Albumin 1.9 L, Globulin 5.3 H, Albumin/Globulin Ratio 0.4 L 09/04/20 06:22: Magnesium 2.0 Current Medications Acetaminophen (Acetaminophen 325 Mg Tablet) 650 mg PO Q6H PRN PRN PRN Reason: Pain Score 1-10/Temp > 100.7 F Albuterol Sulfate (Albuterol 2.5 Mg/3 Ml Vial.Neb.) 2.5 mg INHALATION Q4H PRN PRN PRN Reason: SOB &/OR WHEEZING Amlodipine Besylate (Amlodipine 5 Mg Tablet) 5 mg PO DAILY CINDY Enoxaparin Sodium (Enoxaparin 30 Mg/0.3 Ml Syringe) 30 mg SC DAILY CINDY Last Admin: 09/03/20 10:42 Dose: 30 mg Documented by: Ipratropium Graham (Ipratropium 0.5 Mg/2.5 Ml Solution) 0.5 mg INHALATION Q6HWA.RT CINDY Lactobacillus Acidophilus (Lactobacillus Acidophilus) 2 tablet PO 4X/DAY [facility] Levothyroxine Sodium (Levothyroxine 25 Mcg Tablet) 25 mcg PO DAILY@0600 [facility] Last Admin: 09/04/20 06:40 Dose: 25 mcg Documented by: Metoprolol Tartrate (Metoprolol Tartrate 50 Mg Tablet) 50 mg PO BID [facility] Last Admin: 09/03/20 22:41 Dose: 50 mg Documented by: Ondansetron HCl (Ondansetron 4 Mg/2 Ml Vial) 4 mg IV Q8H PRN PRN PRN Reason: NAUSEA/VOMITING Potassium Chloride (Potassium Chloride 20 Meq Tablet) 20 meq PO DAILYCM [facility] Last Admin: 09/03/20 10:42 Dose: 20 meq Documented by: Vancomycin HCl (Vancomycin Hcl 250 Mg Capsule) 500 mg PO Q6 [facility] Last Admin: 09/04/20 06:40 Dose: 500 mg Documented by: Discharge Diet: Low fat/ Low Cholesterol, 2000 mg Sodium Diet Discharge Activity: Return to Normal Activity Home Medications: Medications to take at Discharge albuterol sulfate 90 mcg/actuation aerosol inhaler 2 puff INHALATION Q6H PRN 07/25/18 Metoprolol Tartrate [Lopressor (beta dustin)] 50 mg PO BID 01/27/19 Levothyroxine [Synthroid] 25 mcg PO DAILY 01/09/20 Ipratropium Graham 1 spray INHALATION BID 09/01/20 Potassium Chloride [Klor-Con M20] 20 meq PO DAILY 09/01/20 Amlodipine [Norvasc] 5 mg PO DAILY 30 Days #30 tab 09/04/20 Lactobacillus Acidophilus [Acidophilus] 2 tab PO 4X/DAY 7 Days #56 tab 09/04/20 Vancomycin HCl 500 mg PO Q6 8 Days #32 cap 09/04/20 Following Prescriptions Were Given to Patient: Lactobacillus Acidophilus [Acidophilus] 2 tab PO 4X/DAY 7 Days #56 tab Transmission Status: Received by [id number] Amlodipine [Norvasc] 5 mg PO DAILY 30 Days #30 tab Transmission Status: Received by [id number] Vancomycin HCl 500 mg PO Q6 8 Days #32 cap Transmission Status: Received by [id number] Primary Care Physician: Gerardo García Chi, MD [Primary Care Provider] - Please follow up with your Primary Care Physician in: within 1-2 weeks Disposition: Home Minutes spent on discharge:: 40 Patient Condition:: Stable Medical Necessity - Tobacco Use Smoking Status: Former smoker Tobacco Use: Non-smoker Meaningful Use Info Meaningful Use Diagnoses (Choose all that apply): None applicable Inpatient E&M: 45678 Disch Hosp
[2020-09-04] MEDS: Metoprolol Tartrate 50 MG Tablet PO (09:15)
[2020-09-04] MEDS: amLODIPine 5 MG Tablet PO (09:16)
== END | disposition home or self-care (01) | DRG 372 ==
LOC: ED 19:15 → MS3 21:15
PROVIDERS: Emergency Provider Emergency Medicine; PCP Family Medicine Geriatric Medicine; Visit Provider Internal Medicine
DX: A04.72 Enterocolitis due to Clostridium difficile, not specified as recurrent (principal); N18.5 Chronic kidney disease, stage 5; I12.0 Hypertensive chronic kidney disease with stage 5 chronic kidney disease or end stage renal disease; N17.9 Acute kidney failure, unspecified; N39.0 Urinary tract infection, site not specified; E87.6 Hypokalemia; E78.5 Hyperlipidemia, unspecified; J45.20 Mild intermittent asthma, uncomplicated; E03.9 Hypothyroidism, unspecified; E83.42 Hypomagnesemia; Z87.891 Personal history of nicotine dependence; R19.7 Diarrhea, unspecified
CPT/HCPCS: 36415; 74019; 80048; 80053; 81001; 82274; 83605; 83630; 83735; 85025; 87077; 87086; 87088; 87177; 87186; 87209; 87493; 87506; 93005; 99281; 99285; J7030; J7040; A4216

== ENCOUNTER → 2020-09-13 12:04 | Outpatient (CLI) | payer MEDICARE, SELFPAY ==
[2020-09-01 21:51] VITALS: BMI 27.5
[2020-09-13 12:29] LABS: Absolute Lymphocyte Count 4.92 X10^3/uL (0.83-4.51); Absolute Neutrophil Count 10.5 X10^3/uL (2.0-7.7); Basophil# 0.11 X10^3/uL; Basophil% 0.7 % (0-1); Eosinophils% 0.6 % (0-5); Hematocrit 45.2 % (37-47); Hemoglobin 14.1 g/dL (12.0-15.0); Lymphocyte # 4.92 X10^3/ul (4.0); Lymphocyte % 29.7 % (19-41); Mean Corp Hgb Conc 31.2 g/dL (32-36); Mean Corpuscular Hgb 32.6 pg (27.0-32.0); Mean Corpuscular Volume 104.6 fL (81-99); Mean Platelet Vol. 10.5 fl (6.2-12.0); Monocyte# 0.83 X10^3/uL; NRBC Flagged by Analyzer 0 % (0-5); Neutrophil # 10.48 X10^3/uL (2.7-7.7); Neutrophil % 63.2 % (47-70); Platelet Count 345 K/mm3 (150-450); RBC Distribution Width CV 14.3 % (11.6-14.6); RBC Distribution Width SD 54.4 fl (35.1-43.9); Red Blood Count 4.32 M/mm3 (4.2-5.4); White Blood Count 16.6 K/mm3 (4.4-11.0)
[2020-09-13 13:01] LABS: Anion Gap 9 (5-15); BUN 19 mg/dL (7-18); BUN/Creat Ratio 6.6 RATIO (10-20); Calcium,Total 8.9 mg/dL (8.5-10.1); Chloride 108 mmol/L (98-107); Creatinine, Serum 2.89 mg/dL (0.55-1.02); EST Glomerular Filtration Rate 17 mL/min (>60); Est Glom Filt Rate - Afr Amer 21 mL/min (>60); Glucose 101 mg/dL (74-106); Potassium 4.7 mmol/L (3.5-5.1); Sodium Level 136 mmol/L (136-145)
== END ==
LOC: POLAB3 12:04
PROVIDERS: PCP Family Medicine Geriatric Medicine; Visit Provider Family Medicine Geriatric Medicine
DX: D72.89 Other specified disorders of white blood cells (principal); E87.6 Hypokalemia
CPT/HCPCS: 36415; 80048; 85025

== ENCOUNTER → 2020-09-20 13:00 | Outpatient (CLI) | payer MEDICARE, SELFPAY ==
[2020-09-01 21:51] VITALS: BMI 27.5
[2020-09-20 17:01] LABS: Absolute Lymphocyte Count 7.82 X10^3/uL (0.83-4.51); Absolute Neutrophil Count 12.3 X10^3/uL (2.0-7.7); Basophil% 0.5 % (0-1); Eosinophil# 0.12 X10^3/uL; Eosinophils% 0.6 % (0-5); Hemoglobin 14.2 g/dL (12.0-15.0); Lymphocyte # 7.82 X10^3/ul (4.0); Lymphocyte % 36.1 % (19-41); Mean Corp Hgb Conc 31.6 g/dL (32-36); Mean Corpuscular Hgb 32.7 pg (27.0-32.0); Mean Corpuscular Volume 103.7 fL (81-99); Mean Platelet Vol. 10.8 fl (6.2-12.0); Monocyte# 1.18 X10^3/uL; Monocyte% 5.4 % (0-10); NRBC Flagged by Analyzer 0 % (0-5); Neutrophil % 56.8 % (47-70); POSITIVE DIFFERENTIAL YES; POSITIVE MORPHOLOGY YES; Platelet Count 448 K/mm3 (150-450); RBC Distribution Width CV 13.9 % (11.6-14.6); RBC Distribution Width SD 53.1 fl (35.1-43.9); Red Blood Count 4.34 M/mm3 (4.2-5.4); White Blood Count 21.7 K/mm3 (4.4-11.0)
[2020-09-20 17:05] LABS: Differential Indicated SCAN CRITERIA MET
[2020-09-20 17:44] LABS: Differential Comment SCANNED
== END ==
LOC: LAB.FUTURE 13:00
PROVIDERS: PCP Family Medicine Geriatric Medicine; Visit Provider Family Medicine Geriatric Medicine
DX: D72.89 Other specified disorders of white blood cells (principal)
CPT/HCPCS: 36415; 85025

== ENCOUNTER → 2020-09-22 15:16 | Outpatient (CLI) | payer MEDICARE, SELFPAY ==
[2020-09-01 21:51] VITALS: BMI 27.5
[2020-09-22 16:01] LABS: Absolute Lymphocyte Count 7.26 X10^3/uL (0.83-4.51); Absolute Neutrophil Count 10.6 X10^3/uL (2.0-7.7); Basophil# 0.12 X10^3/uL; Basophil% 0.6 % (0-1); Eosinophil# 0.09 X10^3/uL; Eosinophils% 0.5 % (0-5); Hematocrit 44.4 % (37-47); Hemoglobin 14.2 g/dL (12.0-15.0); Lymphocyte # 7.26 X10^3/ul (4.0); Lymphocyte % 37.2 % (19-41); Mean Corpuscular Hgb 32.8 pg (27.0-32.0); Mean Corpuscular Volume 102.5 fL (81-99); Mean Platelet Vol. 10.8 fl (6.2-12.0); Monocyte# 1.23 X10^3/uL; Monocyte% 6.3 % (0-10); NRBC Flagged by Analyzer 0 % (0-5); Neutrophil # 10.56 X10^3/uL (2.7-7.7); Neutrophil % 54.2 % (47-70); POSITIVE DIFFERENTIAL YES; POSITIVE MORPHOLOGY YES; Platelet Count 468 K/mm3 (150-450); RBC Distribution Width CV 13.9 % (11.6-14.6); RBC Distribution Width SD 52.6 fl (35.1-43.9); Red Blood Count 4.33 M/mm3 (4.2-5.4); White Blood Count 19.5 K/mm3 (4.4-11.0)
[2020-09-22 16:11] LABS: Anion Gap 9 (5-15); BUN 26 mg/dL (7-18); BUN/Creat Ratio 8.1 RATIO (10-20); Calcium,Total 8.9 mg/dL (8.5-10.1); Chloride 108 mmol/L (98-107); Creatinine, Serum 3.21 mg/dL (0.55-1.02); EST Glomerular Filtration Rate 15 mL/min (>60); Est Glom Filt Rate - Afr Amer 19 mL/min (>60); Glucose 106 mg/dL (74-106); Potassium 4.1 mmol/L (3.5-5.1); Sodium Level 136 mmol/L (136-145)
[2020-09-22 16:19] LABS: Differential Indicated SCAN CRITERIA MET
[2020-09-22 17:12] LABS: Reactive Lymphocyte 2+
== END ==
PROVIDERS: PCP Family Medicine Geriatric Medicine; Visit Provider Family Medicine Geriatric Medicine
DX: D72.89 Other specified disorders of white blood cells (principal); E87.8 Other disorders of electrolyte and fluid balance, not elsewhere classified
CPT/HCPCS: 36415; 80048; 85025

== ENCOUNTER 2020-09-23 11:36 | Observation (INO) | payer MEDICARE, SELFPAY ==
[2020-09-01 21:51] VITALS: BMI 27.5
[2020-09-23] VITALS (9 sets, daily range): BP systolic 120–147; BP diastolic 74–83; PULSE 69–84; RESP 16–22; TEMP 36.7–36.9; O2SAT 94–99; BMI 27.1; BMI 25.9
[2020-09-23] MEDS: 0.9% Normal Saline 1,000 ML 1000 ML IV (11:44)
--- NOTE | 2020-09-23 11:54 | ED.DCSUM_ITS ---
History of Present Illness Chief Complaint: Dizziness Narrative: Presents with dizziness. It is hard for her to describe it, she was laying down at the salon when she stood up she felt lightheaded dizzy but she also had some vertiginous symptoms. She tells me the symptoms are only present when she sits up or stands up. They are not worse when she turns her head or moves. She has no headache or vision changes. She has a history of C. difficile status post antibiotic use for cellulitis. No fever or chills. Diarrhea seems to be improving. She has no cough or congestion, no abdominal pain. Past Medical History - Allergies and Home Meds Allergies/Adverse Reactions: Allergies pravastatin Allergy (Verified 09/23/20 11:44) Chest tightness procaine [From Novocain] Allergy (Verified 09/23/20 11:44) NEEDS FOLLOW-UP Pt doesn't know sulfamethoxazole [From Bactrim] Allergy (Verified 09/23/20 11:44) Shortness of breath trimethoprim [From Bactrim] Allergy (Verified 09/23/20 11:44) Shortness of breath clindamycin Adverse Reaction (Verified 09/23/20 11:44) unsure of reaction She thinks Levaquin or Clindamycin causes trouble breathing & swelling of feet levofloxacin [From Levaquin] Adverse Reaction (Verified 09/23/20 11:44) UNSURE OF REACTION Pt thinks Levaquin or Clindamycin cause difficulty breathing & swelling of feet methylprednisolone Adverse Reaction (Verified 09/23/20 11:44) Pain in joints novacaine Allergy (Uncoded 09/23/20 11:44) Unknown Primary Care Physician: Gerardo García Chi, MD [Primary Care Provider] - Past Medical History: - - Hypertension, C. difficile as in HPI Surgical History: hysterectomy, - - Cholecystectomy; and Mass removed from kidney, rt ureteral stent plaement in 2016 Smoking Status: Former smoker - Family History Paternal Family History: Family History (Last Reviewed 09/01/20 @ 22:[address] Rafa Lofton DO) Father CAD (coronary artery disease) History of coronary artery bypass surgery Family History: Reports: Heart Disease, Hypertension Maternal Family History: Family History (Last Reviewed 09/01/20 @ 22:[address] Rafa Lofton DO) Father CAD (coronary artery disease) History of coronary artery bypass surgery Family History: Reports: Cancer Review of Systems All systems negative except as indicated General: Reports: - - Dizziness as in HPI. Denies: Fever Eyes: Denies: Visual changes - bilaterally ENT: Denies: Rhinorrhea, Sore throat Cardiovascular: Denies: Chest pain Respiratory: Denies: Dyspnea, Cough Gastrointestinal: Reports: Nausea. Denies: Abdominal pain, Vomiting Genitourinary: Denies: Dysuria Musculoskeletal: Denies: Myalgias, Arthralgias Skin: Denies: Rash Neurological: Denies: Headache, Weakness Psych: Denies: Depression Endocrine: Denies: Polyuria, Polydipsia Hematologic: Denies: Easy bruising Physical Exam Vital Signs/Narrative: Vital Signs Temp Pulse Resp BP Pulse Ox 09/23/20 11:40 98.0 F 73 18 147/83 H 98 09/23/20 11:37 98.0 F 74 16 147/83 H 98 General: Well nourished Head: Normocephalic ENT: Dry mucous membranes Neck: Supple Cardiovascular: Regular rate, Regular rhythm, No murmurs Respiratory: No distress, CTA bilaterally Abdomen: Soft, Nontender, Nondistended Back: Nontender, Normal Inspection. Negative for: CVA tenderness Extremities: Nontender, No edema Skin: Normal color Neurological: Alert, Normal Strength, Normal Sensation Psychological: Normal affect Diagnostic/Tx/Re-eval - Medical Decision Making Patient still complains about dizziness, IV fluids did not significantly improved her symptoms she is not orthostatic. I am worried about a possible posterior circulation I will admit her for further work-up ED Disposition - Plan for ED Patient: Disposition: Acute Care Hospital [facility] Diagnosis: Vertigo Referrals: Gerardo García Chi, MD [Primary Care Provider] -
[2020-09-23 12:00] LABS: Absolute Lymphocyte Count 6.19 X10^3/uL (0.83-4.51); Absolute Neutrophil Count 7.7 X10^3/uL (2.0-7.7); Basophil% 0.6 % (0-1); Eosinophil# 0.16 X10^3/uL; Hematocrit 40.5 % (37-47); Hemoglobin 12.9 g/dL (12.0-15.0); Lymphocyte # 6.19 X10^3/ul (4.0); Mean Corp Hgb Conc 31.9 g/dL (32-36); Mean Corpuscular Hgb 32.8 pg (27.0-32.0); Mean Corpuscular Volume 103.1 fL (81-99); Mean Platelet Vol. 10.3 fl (6.2-12.0); Monocyte# 1.06 X10^3/uL; Monocyte% 6.8 % (0-10); NRBC Flagged by Analyzer 0 % (0-5); Neutrophil # 7.73 X10^3/uL (2.7-7.7); POSITIVE DIFFERENTIAL YES; Platelet Count 439 K/mm3 (150-450); RBC Distribution Width CV 13.9 % (11.6-14.6); RBC Distribution Width SD 53.4 fl (35.1-43.9); Red Blood Count 3.93 M/mm3 (4.2-5.4); White Blood Count 15.5 K/mm3 (4.4-11.0)
[2020-09-23 12:01] LABS: Differential Indicated SCAN CRITERIA MET
[2020-09-23 12:16] LABS: ALB/GLOB Ratio 0.4 RATIO (0.9-2.4); AST(SGOT) 7 U/L (15-37); Alanine Aminotransfer ALT/SGPT 13 U/L (13-56); Albumin, Serum 2.5 g/dL (3.2-5.0); Alkaline Phosphatase 100 U/L (45-117); Anion Gap 7 (5-15); BUN 24 mg/dL (7-18); BUN/Creat Ratio 8.1 RATIO (10-20); Calcium,Total 8.2 mg/dL (8.5-10.1); Chloride 107 mmol/L (98-107); Creatinine, Serum 2.95 mg/dL (0.55-1.02); EST Glomerular Filtration Rate 17 mL/min (>60); Est Glom Filt Rate - Afr Amer 20 mL/min (>60); Estimated Creatinine Clearance 18.41 ml/min; Glucose 89 mg/dL (74-106); Potassium 3.5 mmol/L (3.5-5.1); Protein, Total 8.5 g/dL (6.4-8.2); Sodium Level 138 mmol/L (136-145)
--- NOTE | 2020-09-23 12:18 | CT_ITS ---
STUDY: CT BRAIN WITHOUT CONTRAST REASON FOR EXAM: Female, 70 years old. DIZZINESS RADIATION DOSAGE (If Supplied By Facility): CTDIvol = ( 44.99 ) mGy, DLP = ( 846.73 ) mGycm TECHNIQUE: Transaxial CT imaging of the brain was performed without administration of intravenous contrast material. Individualized dose optimization techniques were used for this CT. COMPARISON: Comparison is made with prior study dated 01/07/2018. FINDINGS: Normal soft tissue structures. Normal calvarium. Normal size ventricles and extra-axial spaces for the patient''s age. Normal white matter tracts of the cerebral hemispheres. Normal basal ganglia and thalami. Normal brainstem. Normal cerebellum. There is no intracranial hemorrhage. There are no findings of an acute ischemic infarction. Normal visualized paranasal sinuses. CT/Brain/Head without Contrast IMPRESSION: Normal unenhanced CT scan of the brain. Electronically Signed: Ike Colón, at 12:42 EST , Service support ,
--- NOTE | 2020-09-23 15:27 | HP.PCM_ITS ---
Problem List (1) Vertigo Status: Acute (2) Problem with dialysis access Status: Inactive Qualifiers: Encounter type: initial encounter Qualified Code(s): T82.898A - Other specified complication of vascular prosthetic devices, implants and grafts, initial encounter (3) Status post placement of implantable loop recorder Status: Chronic (4) History of cardiac catheterization Status: Inactive Comment: normal coronaries (5) Dunbar's palsy Status: Inactive (6) History of hysterectomy Status: Resolved (7) History of cholecystectomy Status: Resolved (8) Cervical cancer Status: Inactive (9) Chronic renal failure, stage 4 (severe) Status: Chronic (10) History of excision of mass Status: Inactive (11) history of radium implant Status: Inactive (12) Near syncope Status: Resolved (13) Essential hypertension Status: Chronic (14) LULY (acute kidney injury) Status: Acute (15) Sepsis Status: Inactive Qualifiers: Sepsis type: sepsis due to unspecified organism Qualified Code(s): A41.9 - Sepsis, unspecified organism (16) Bilateral hydronephrosis Status: Chronic Comment: worsening. (17) Acute diarrhea Status: Resolved (18) Hyponatremia Status: Resolved (19) Hypokalemia Status: Resolved (20) High anion gap metabolic acidosis Status: Resolved (21) Hyperlipidemia Status: Chronic Qualifiers: Hyperlipidemia type: unspecified Qualified Code(s): E78.5 - Hyperlipidemia, unspecified (22) Mild intermittent asthma Status: Chronic History of Present Illness Date of Admission: 09/23/20 Ms Delong is a 70 year old F with a PMH of recent C-Diff infection, CKD stage 4, HTN, HPL, Asthma, Loop Recorder placement 03/2020, and cervical cancer who presented to the ED after a severe episode of vertigo after having her hair washed at the hair dressers. The pt states that the world was spinning and that she was not lightheaded at all. She states that she feels back to baseline now but did have another episode in the ED. Orthostatics were negative. Pt was given a 1 L bolus if IVF as well. She reports that she was recently treated for CDI. Her diarrhea is much better and she is only having 1-2 BM daily. She was treated with Flagyl and this was completed about 1 week ago. She was admitted here for this from 09/02 to 09/04. Her appetite is back to normal and she has been eating and drinking without difficulty. She does however admit that she has not had anything to eat yet today. Her VS are WNL. Lab shows a leukoxytosis but this is trending down and there is no shift. Her sCr is elevated at 2.95 but this is baseline for her. She follows with Dr. Matthews for her renal disease. The ED wanted her admitted for w/u of posterior circulation issues with her sx but unfortunately I am limited in the kind of w/u I can do with her renal failure and her loop recorder implantation. Past Medical History Past Medical History (Chronic Problems): Chronic Problems (Last Reviewed 09/01/20 @ 22:[address] Rafa Lofton DO) Status post placement of implantable loop recorder (Chronic ~03/29/20) Chronic renal failure, stage 4 (severe) (Chronic) Essential hypertension (Chronic) Bilateral hydronephrosis (Chronic) worsening. Hyperlipidemia (Chronic) Mild intermittent asthma (Chronic) Medical History: Medical History (Last Reviewed 09/23/20 @ 15:[address] Julianna Matthews, DO) Status post placement of implantable loop recorder (Chronic) Onset Date: ~03/29/20 Z95.818 Chronic renal failure, stage 4 (severe) (Chronic) N18.4 Near syncope (Resolved) R55 Essential hypertension (Chronic) I10 LULY (acute kidney injury) (Acute) N17.9 Bilateral hydronephrosis (Chronic) N13.30 worsening. 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 Cervical cancer (Inactive) C53.9 Problem with dialysis access (Inactive) T82.898A Sepsis (Inactive) A41.9 Allergies pravastatin Allergy (Verified 09/23/20 11:44) Chest tightness procaine [From Novocain] Allergy (Verified 09/23/20 11:44) NEEDS FOLLOW-UP Pt doesn't know sulfamethoxazole [From Bactrim] Allergy (Verified 09/23/20 11:44) Shortness of breath trimethoprim [From Bactrim] Allergy (Verified 09/23/20 11:44) Shortness of breath clindamycin Adverse Reaction (Verified 09/23/20 11:44) unsure of reaction She thinks Levaquin or Clindamycin causes trouble breathing & swelling of feet levofloxacin [From Levaquin] Adverse Reaction (Verified 09/23/20 11:44) UNSURE OF REACTION Pt thinks Levaquin or Clindamycin cause difficulty breathing & swelling of feet methylprednisolone Adverse Reaction (Verified 09/23/20 11:44) Pain in joints novacaine Allergy (Uncoded 09/23/20 11:44) Unknown Home Medications: Ambulatory Orders Medication Instructions Recorded albuterol sulfate 90 mcg/actuation 2 puff INHALATION Q6H PRN 07/25/18 aerosol inhaler Metoprolol Tartrate [Lopressor 50 mg PO BID 01/27/19 (beta dustin)] Levothyroxine [Synthroid] 25 mcg PO DAILY 01/09/20 Ipratropium [place] 1 spray INHALATION BID 09/01/20 Potassium Chloride [Klor-Con M20] 20 meq PO DAILY 09/01/20 Amlodipine [Norvasc] 2.5 mg PO DAILY 09/23/20 Surgical History: Surgical History (Last Reviewed 09/23/20 @ 15:[address] Julianna Matthews DO) History of hysterectomy (Resolved) Z90.710 History of cholecystectomy (Resolved) Z90.49 History of loop recorder Z98.890 History of cardiac catheterization (Inactive) Onset Date: ~01/08/18 Z98.890 normal coronaries History of excision of mass (Inactive) Z98.890 history of radium implant (Inactive) Surgical History: hysterectomy, - - Cholecystectomy; and Mass removed from kidney, rt ureteral stent plaement in 2016, Loop recorder implantation 03/2020 Psychiatric History: No pertinent psych hx [employer] History: cervical cancer Lives: With Family Smoking Status: Former smoker Tobacco Use: Cigarettes Alcohol: None Drugs: None - *Family History Paternal Family History: Family History (Last Reviewed 09/23/20 @ 15:[address] Julianna Matthews DO) Father CAD (coronary artery disease) History of coronary artery bypass surgery History Items: Heart Disease, Hypertension Maternal Family History: Family History (Last Reviewed 09/23/20 @ 15:[address] Julianna Matthews DO) Father CAD (coronary artery disease) History of coronary artery bypass surgery History Items: Cancer Review of Systems Constitutional: Denies: Anorexia, Chills, Fever, Night Sweats, Malaise, Weakness, Weight Change, Fatigue Eyes: Denies: Blurred vision, Cataracts, Conjunctivae Inflammation, Double vision, Drainage, Eyelid Inflammation, Pain, Redness, Vision Change HEENT: Reports: Sore Throat - yesterday but now resolved. Denies: Difficulty Hearing, Difficulty Swallowing, Hard of Hearing, Head Aches, Post Nasal Drip, Sinus Congestion, Sinus Drainage, Visual Changes Cardiovascular: Denies: Chest Pain, Claudication, Chest Pressure, Chest Tightness, Edema, Heaviness, Light Headedness, Orthopnea, Palpitations, Paroxysmal Noc. Dyspnea, Syncope Respiratory: Reports: Cough - mild dry. Denies: Hemoptysis, Pleuritic Pain, Shortness of Breath, Shortness of breath at rest, Shortness of breath upon exertion, Sputum production, Wheezing Gastrointestinal: Reports: - - 2 loose stools per day. Denies: Abdominal Pain, Constipation, Diarrhea, Dyspepsia, Hematemesis, Hematochezia, Nausea, Melena, Vomiting Genitourinary: Denies: Dysuria, Frequency, Hematuria, Hesitancy, Incontinence, Nocturia, Retention, Urgency Musculoskeletal: Denies: Back Pain, Joint Pain, Joint stiffness, Joint swelling, Joint Tenderness, Leg Pain, Muscle pain, Neck Pain Skin: Denies: Dryness, Jaundice, Lesions, Pruritis, Rash, Skin Changes, Wounds Neurological: Reports: - - vertigo-now resolved. Denies: Balance problems, Blurred vision, Double vision, Change in Speech, Slurred speech, Confusion, Difficulty swallowing, Focal weakness, Headaches, Incoordination, Numbness, Tremor, Seizures Psychiatric: Denies: Anxiety, Depression Endocrine: Denies: Change in Body Habitus, Heat/ Cold Intolerance, Polydipsia, Polyuria Hematologic/ Lymphatic: Denies: Adenopathy, Anemia, Easy Bruising, Easy Bleeding, Petechiae, Purpura VTE Information - Inpt Only VTE Present on Admission: No VTE Mechan Device Prophylaxis: None VTE Pharm Prophylaxis ordered?: No Patient Problems: Active and Suspected Problems (Last Reviewed 09/01/20 @ 22:[address] Rafa Lofton DO) Vertigo (Acute) - Physical Exam Vitals/I&O's: Vital Signs Temp Pulse Resp BP Pulse Ox 98.3 F 72 22 H 120/76 99 09/23/20 15:08 09/23/20 15:08 09/23/20 15:08 09/23/20 15:08 09/23/20 15:08 Oxygen Delivery Method Room Air Weight: 80.9 kg Body Mass Index (BMI) 27.1 Finger Stick Blood Glucose 92 Intake and Output for Last 24 Hours 09/21/20 09/22/20 09/23/20 23:59 23:59 23:59 Intake Total 1000 / 1000 Balance 1000 / 1000 General: Alert, Oriented x3, Cooperative, No apparent distress, Well developed, Well nourished, - - older WF sitting up in bed, appears comfortable HEENT: Atraumatic, PERRLA, EOMI, Normocephalic, EAC Clear Oral: Moist Mucosa, No Gingival or Mucosal Lesions/ Ulcerations Neck: Supple, No JVD, No Nodes, Trachea Midline, Thyroid Normal Size and Texture Lungs: Clear to auscultation, Normal air movement, No rhonchi, No wheeze, No rales Cardiovascular: Regular rate, Regular Rhythm, Normal S1, Normal S2, No murmurs, No Ectopic Activity, No rub noted, No Gallop Abdomen: Bowel Sounds Present, Soft, Non Tender, Non-Distended, No Hepato- splenomegaly, Hernia Extremities: No clubbing, No cyanosis, No edema, Capillary Refill Less than 3 Seconds, Peripheral Pulses Normal Skin: No rashes, No breakdown Musculoskeletal: No Tenderness to Palpation of Joints or Extremities, No Muscle Wasting, Arthritic Changes Lymphatic: No Cervical, Supraclavicular, or Inguinal Adenopathy Neurological: Cranial nerves II-XII grossly intact, Deep Tendon Reflexes 2+/4 and Symmetrical, Neuro grossly intact, Motor Exam 5/5 strength throughout, Muscle tone normal, Sensory exam intact to light touch and pain, Coordination normal Psych/Mental Status: Normal Affect, Appropriate Laboratory Results 09/23/20 11:44: WBC 15.5 H, RBC 3.93 L, Hgb 12.9, Hct 40.5, MCV 103.1 H, MCH 32.8 H, MCHC 31.9 L, RDW Std Deviation 53.4 H, RDW Coeff of [place]wey 13.9, Plt Count 439, MPV 10.3, Immature Gran % (Auto) 1.600 H, Neut % (Auto) 50.0, Lymph % (Auto) 40.0, [place] % (Auto) 6.8, Eos % (Auto) 1.0, Baso % (Auto) 0.6, Absolute Neuts (auto) 7.7, Absolute Lymphs (auto) 6.19 H, Nucleated RBC % 0, Differential Comment COMMENT 09/23/20 11:44: Sodium 138, Potassium 3.5, Chloride 107, Carbon Dioxide 24.0, Anion Gap 7, BUN 24 H, Creatinine 2.95 H, Estim Creat Clear Calc 18.41, Est GFR (MDRD) Af Amer 20 L, Est GFR (MDRD) Non-Af 17 L, BUN/Creatinine Ratio 8.1 L, Glucose 89, Calcium 8.2 L, Total Bilirubin 0.50, AST 7 L, ALT 13, Alkaline Phosphatase 100, Troponin I < 0.015, Total Protein 8.5 H, Albumin 2.5 L, Globulin 6.0 H, Albumin/Globulin Ratio 0.4 L Assessment/Plan All Active Problems (Last Reviewed 09/01/20 @ 22:[address] Rafa Lofton, DO) Vertigo (Acute) History of hysterectomy (Resolved) History of cholecystectomy (Resolved) Near syncope (Resolved) LULY (acute kidney injury) (Acute) Acute diarrhea (Resolved) H/O Dunbar's palsy (Resolved) High anion gap metabolic acidosis (Resolved) Hx of cervical cancer (Resolved) Hypokalemia (Resolved) Hyponatremia (Resolved) Urinary tract infection (Resolved) Vertigo -now resolved -occurred with cervical extension as mechanism of onset and I agree this is concerning for post circulation issues and she is higher risk -unable to assess post circ though as pt cannot have MRI/MRA 2/2 Loop recorder implantation/CKD or CTA 2/2 renal failure -will watch overnight on TELE -ECHO -Carotid US -ASA 81 mg -check lipids Leukocytosis -recent CDI -trending down (was 19 yesterday) -monitor CDI -diarrhea is much better and pt is feeling better -Flagyl was completed about 7 days ago -appetite is back to baseline CKD Stage 4 -stable -follows with Dr. Matthews HTN -continue Amlodipine -continue BB Asthma -continue home meds Hypothyroidism -check TSH -cont Synthroid DVT prophylaxis -ambulation Code Status -Full Inpatient E&M: 15648 Init Hosp L3
--- NOTE | 2020-09-23 16:07 | CDU_ITS ---
Reason For Study: VERTIGO Rt. Velocities/BP Lt. Velocities/BP Prox CCA 55.2/ 13.4 cm/sec. Prox CCA 82.3/ 18.6 cm/sec. Mid CCA 61.7/ 17.3 cm/sec. Mid CCA 60.3/ 18.6 cm/sec. Dist CCA 50.9/ 12.4 cm/sec. Dist CCA 46.0/ 14.2 cm/sec. Prox ICA 41.6/ 12.2 cm/sec. Prox ICA 63.6/ 18.6 cm/sec. Mid ICA 33.7/ 11.6 cm/sec. Mid ICA 63.6/ 23.0 cm/sec. Dist ICA 90.7/ 28.1 cm/sec. Dist ICA 65.8/ 28.5 cm/sec. Rt. ICA/CCA = 1.6. Lt. ICA/CCA = 1.1. Prox ECA 68.7/ 6.0 cm/sec. Prox ECA 85.6/ 12.0 cm/sec. Rt. Vert. 47.2/ 16.4 cm/sec. Lt. Vert. 55.9/ 17.5 cm/sec. Right Extracranial There is homogeneous, smooth atherosclerotic plaque noted in the right common carotid artery. There is homogeneous, smooth atherosclerotic plaque noted in the right internal carotid artery. There is intimal thickening but no significant atherosclerotic plaque noted in the right external carotid artery. Antegrade flow is noted in the right vertebral artery. Left Extracranial There is homogeneous, smooth atherosclerotic plaque noted in the left common carotid artery. There is homogeneous, smooth atherosclerotic plaque noted in the left internal carotid artery. There is intimal thickening but no significant atherosclerotic plaque noted in the left external carotid artery. Antegrade flow is noted in the left vertebral artery. Procedure Carotid Duplex [id number]. This is a Carotid Duplex examination using B-mode, color flow and specral Doppler. Exam performed portable in patient room. Interpretation Summary Smooth plaque at the proximal right internal carotid artery with less than 50% stenosis. Less than 50% stenosis right external carotid Smooth plaque at the proximal left internal carotid artery with less than 50% stenosis Less than 50% stenosis left external carotid Patent and antegrade vertebrals bilaterally Ordering Physician: Julianna Matthews Referring Physician: Gerardo García Chi Performed By: Elena Whitney RVT and Student
[2020-09-23] MEDS: Metoprolol Tartrate 50 MG Tablet PO (20:48)
--- NOTE | 2020-09-23 22:56 | CPS ---
pt only takes albuterol as needed. , pt didn't want aerosol treatment at this time.
[2020-09-24] VITALS (13 sets, daily range): BP systolic 106–134; BP diastolic 63–78; PULSE 72–96; RESP 16–18; TEMP 36.4–37.1; O2SAT 94–95
[2020-09-24 06:01] LABS: Absolute Lymphocyte Count 4.68 X10^3/uL (0.83-4.51); Absolute Neutrophil Count 8.5 X10^3/uL (2.0-7.7); Basophil% 0.7 % (0-1); Eosinophil# 0.19 X10^3/uL; Eosinophils% 1.3 % (0-5); Hematocrit 40.8 % (37-47); Hemoglobin 12.7 g/dL (12.0-15.0); Lymphocyte # 4.68 X10^3/ul (4.0); Lymphocyte % 31.8 % (19-41); Mean Corp Hgb Conc 31.1 g/dL (32-36); Mean Corpuscular Hgb 32.5 pg (27.0-32.0); Mean Corpuscular Volume 104.3 fL (81-99); Mean Platelet Vol. 10.3 fl (6.2-12.0); Monocyte# 1.01 X10^3/uL; Monocyte% 6.9 % (0-10); NRBC Flagged by Analyzer 0 % (0-5); Neutrophil # 8.54 X10^3/uL (2.7-7.7); Neutrophil % 57.9 % (47-70); Platelet Count 401 K/mm3 (150-450); RBC Distribution Width SD 53.8 fl (35.1-43.9); Red Blood Count 3.91 M/mm3 (4.2-5.4); White Blood Count 14.7 K/mm3 (4.4-11.0)
[2020-09-24] MEDS: Levothyroxine 25 MCG TABLET PO (06:29)
[2020-09-24 06:33] LABS: Anion Gap 8 (5-15); BUN 21 mg/dL (7-18); BUN/Creat Ratio 8.2 RATIO (10-20); Calcium,Total 8.2 mg/dL (8.5-10.1); Chloride 112 mmol/L (98-107); Cholesterol 146 mg/dL (200); Creatinine, Serum 2.55 mg/dL (0.55-1.02); EST Glomerular Filtration Rate 20 mL/min (>60); Est Glom Filt Rate - Afr Amer 24 mL/min (>60); Glucose 83 mg/dL (74-106); High Density Lipoprotein 35 mg/dL; Magnesium 1.5 mg/dL (1.6-2.6); Potassium 3.7 mmol/L (3.5-5.1); Sodium Level 141 mmol/L (136-145); Triglycerides 129 mg/dL; Very Low Density Lipoprotein 26 mg/dL (5-40)
[2020-09-24] MEDS: amLODIPine 2.5 MG Tablet PO (09:42)
[2020-09-24] MEDS: Metoprolol Tartrate 50 MG Tablet PO ×2 (09:43→21:32)
[2020-09-24] MEDS: Aspirin 81 MG TAB.CHEW PO (09:43)
--- NOTE | 2020-09-24 11:57 | CASEMGMT ---
Pt is currently in special precautions so this RN CM called pt via phone to complete BURGER with pt at this time. This RN CM explained BURGER-pt voices understanding and gives verbal signature for BURGER form at this time. Pt is A/Ox4 at this time. Original to chart and copy sent into room with pt at this time. Pt voices no further questions/concerns/needs at this time. Pt states has an IP vs OBS booklet in room at this time. [place] ANISH KIRKPATRICK
--- NOTE | 2020-09-24 12:37 | PN_ITS ---
<Diana Little APPROVER - Last Filed: 09/24/20 13:07> Patient Problems: Active and Suspected Problems (Last Reviewed 09/23/20 @ 15:[address] Julianna harvey DO) Vertigo (Acute) LULY (acute kidney injury) (Acute) Subjective: Patient seen and examined. Reports she continues to have dizziness upon standing. Patient states she has had these symptoms intermittently as well as near syncope over the past year or more. She had an implantable loop recorder placed for further evaluation which to date has not demonstrated any significant arrhythmias. Patient feels her symptoms are typically positional or while ambulating. Patient continues to have diarrhea although she reports this is significantly improved. - Physical Exam Vitals/I&O's: Vital Signs Temp Pulse Resp BP Pulse Ox 97.5 F L 74 16 134/78 H 95 09/24/20 09:00 09/24/20 11:49 09/24/20 09:00 09/24/20 09:43 09/24/20 09:00 Oxygen Delivery Method Room Air Weight: 171 lb 1.259 oz Body Mass Index (BMI) 25.9 Finger Stick Blood Glucose 92 Intake and Output for Last 24 Hours 09/22/20 09/23/20 09/24/20 23:59 23:59 23:59 Intake Total 1550 / 1550 400 / 400 Balance 1550 / 1550 400 / 400 General: Alert, Oriented x3, Cooperative HEENT: Atraumatic, PERRLA, EOMI, Normocephalic Neck: Supple, No JVD, Negative Carotid Bruits Lungs: Clear to auscultation, Normal air movement Cardiovascular: Regular rate, No murmurs Abdomen: Bowel Sounds Present, Soft, Non Tender, Non-Distended Extremities: No clubbing, No cyanosis, No edema, Capillary Refill Less than 3 Seconds Skin: No rashes, No breakdown Musculoskeletal: No Tenderness to Palpation of Joints or Extremities Neurological: Cranial nerves II-XII grossly intact, Neuro grossly intact Psych/Mental Status: Normal Affect, Appropriate Microbiology Past 72 Hours 09/23/20 16:58 Stool C. difficile GDH Antigen & Toxins - Final Toxigenic C. difficile 09/23/20 16:58 Stool C. difficile DNA Amplification - Final Laboratory Results 09/23/20 16:40: Troponin I < 0.015 09/24/20 05:35: WBC 14.7 H, RBC 3.91 L, Hgb 12.7, Hct 40.8, MCV 104.3 H, MCH 32.5 H, MCHC 31.1 L, RDW Std Deviation 53.8 H, RDW Coeff of Dewey 14.0, Plt Count 401, MPV 10.3, Immature Gran % (Auto) 1.400 H, Neut % (Auto) 57.9, Lymph % (Auto) 31.8, Maverick % (Auto) 6.9, Eos % (Auto) 1.3, Baso % (Auto) 0.7, Absolute N euts (auto) 8.5 H, Absolute Lymphs (auto) 4.68 H, Nucleated RBC % 0 09/24/20 05:35: Sodium 141, Potassium 3.7, Chloride 112 H, Carbon Dioxide 21.0, Anion Gap 8, BUN 21 H, Creatinine 2.55 H, Estim Creat Clear Calc 21.30, Est GFR (MDRD) Af Amer 24 L, Est GFR (MDRD) Non-Af 20 L, BUN/Creatinine Ratio 8.2 L, Glucose 83, Calcium 8.2 L, Phosphorus 4.0, Magnesium 1.5 L, Triglycerides 129, Cholesterol 146, LDL Cholesterol 85, VLDL Cholesterol 26, HDL Cholesterol 35 L, TSH 1.50 Current Medications Acetaminophen (Acetaminophen 325 Mg Tablet) 650 mg PO Q6H PRN PRN PRN Reason: Pain Score 1-10/Temp > 100.7 F Albuterol Sulfate (Albuterol 2.5 Mg/3 Ml Vial.Neb.) 2.5 mg INHALATION Q4H PRN PRN Reason: SOB AND /OR WHEEZING Amlodipine Besylate (Amlodipine 2.5 Mg Tablet) 2.5 mg PO DAILY [facility] Last Admin: 09/24/20 09:42 Dose: 2.5 mg Documented by: Aspirin (Aspirin 81 Mg Tab.Chew) 81 mg PO DAILY@0800 [facility] Last Admin: 09/24/20 09:43 Dose: 81 mg Documented by: Ipratropium Joiner (Ipratropium 0.5 Mg/2.5 Ml Solution) 0.5 mg INHALATION Q6HWA.RT [facility] Levothyroxine Sodium (Levothyroxine 25 Mcg Tablet) 25 mcg PO DAILY@0600 [facility] Last Admin: 09/24/20 06:29 Dose: 25 mcg Documented by: Melatonin (Melatonin 3 Mg Tablet) 3 mg PO QHS PRN PRN PRN Reason: INSOMNIA Metoprolol Tartrate (Metoprolol Tartrate 50 Mg Tablet) 50 mg PO BID [facility] Last Admin: 09/24/20 09:43 Dose: 50 mg Documented by: Ondansetron HCl (Ondansetron 4 Mg/2 Ml Vial) 4 mg IV Q8H PRN PRN PRN Reason: NAUSEA/VOMITING Sodium Chloride (0.9% Saline Lock 10 Ml Syringe) 10 - 40 ml IV UD PRN PRN Reason: SALINE FLUSH Vancomycin HCl (Vancomcyin 125 Mg/5 Ml Susp Po.Syringe) 125 mg PO Q6 [facility] Last Admin: 09/24/20 11:54 Dose: 125 mg Documented by: Medical Necessity - Tobacco Use Smoking Status: Former smoker Tobacco Use: Cigarettes Assessment/Plan All Active Problems (Last Reviewed 09/23/20 @ 15:[address] Julianna Matthews, DO) Vertigo (Acute) History of hysterectomy (Resolved) History of cholecystectomy (Resolved) Near syncope (Resolved) LULY (acute kidney injury) (Acute) Acute diarrhea (Resolved) High anion gap metabolic acidosis (Resolved) Hypokalemia (Resolved) Hyponatremia (Resolved) H/O Dunbar's palsy (Resolved) Hx of cervical cancer (Resolved) Urinary tract infection (Resolved) 1. Vertigo, ongoing history of recurrent near syncope-patient has been following with cardiology and under gone 30-day event monitor, echocardiogram, cardiac catheterization and subsequent loop recorder placement. All of which to date have been unremarkable. Loop recorder interrogation completed this morning which showed brief episode of SVT in August. Otherwise no recent arrhythmias. Brain CT normal. Orthostatic vitals negative. Echocardiogram March 2020 demonstrated an EF of 55%, mild aortic valve insufficiency. Unable to have MRI/MRA secondary to loop recorder implant. CTA contraindicated secondary to CKD stage IV. Carotid ultrasound pending. Monitor telemetry. PT eval. 2. Recent C. difficile infection-following treatment with antibiotics for cellulitis. Patient completed outpatient course of antibiotics. Continues to have diarrhea although improved. Repeat stool sample positive for C. difficile. Placed on oral vancomycin. 3. Chronic kidney disease stage IV-follows with Dr. Matthews, nephrology. 4. Hypertension-stable, continue amlodipine, metoprolol. 5. Chronic asthma-as needed albuterol aerosol. 6. Hypothyroidism-continue Synthroid regimen. DVT prophylaxis-heparin subcu This patient was seen by EMMETT Price under the supervision of Dr. Jacqueline camilo. <Alivia Mcrae - Last Filed: 09/24/20 14:49> - Physical Exam Vitals/I&O's: Vital Signs Temp Pulse Resp BP Pulse Ox 97.5 F L 74 16 134/78 H 95 09/24/20 09:00 09/24/20 11:49 09/24/20 09:00 09/24/20 09:43 09/24/20 09:00 Oxygen Delivery Method Room Air Weight: 171 lb 1.259 oz Body Mass Index (BMI) 25.9 Finger Stick Blood Glucose 92 Intake and Output for Last 24 Hours 09/22/20 09/23/20 09/24/20 23:59 23:59 23:59 Intake Total 1550 / 1550 400 / 400 Balance 1550 / 1550 400 / 400 Microbiology Past 72 Hours 09/23/20 16:58 Stool C. difficile GDH Antigen & Toxins - Final Toxigenic C. difficile 09/23/20 16:58 Stool C. difficile DNA Amplification - Final Laboratory Results 09/23/20 16:40: Troponin I < 0.015 09/24/20 05:35: WBC 14.7 H, RBC 3.91 L, Hgb 12.7, Hct 40.8, MCV 104.3 H, MCH 32.5 H, MCHC 31.1 L, RDW Std Deviation 53.8 H, RDW Coeff of Dewey 14.0, Plt Count 401, MPV 10.3, Immature Gran % (Auto) 1.400 H, Neut % (Auto) 57.9, Lymph % (Auto) 31.8, Maverick % (Auto) 6.9, Eos % (Auto) 1.3, Baso % (Auto) 0.7, Absolute Neuts (auto) 8.5 H, Absolute Lymphs (auto) 4.68 H, Nucleated RBC % 0 09/24/20 05:35: Sodium 141, Potassium 3.7, Chloride 112 H, Carbon Dioxide 21.0, Anion Gap 8, BUN 21 H, Creatinine 2.55 H, Estim Creat Clear Calc 21.30, Est GFR (MDRD) Af Amer 24 L, Est GFR (MDRD) Non-Af 20 L, BUN/Creatinine Ratio 8.2 L, Glucose 83, Calcium 8.2 L, Phosphorus 4.0, Magnesium 1.5 L, Triglycerides 129, Cholesterol 146, LDL Cholesterol 85, VLDL Cholesterol 26, HDL Cholesterol 35 L, TSH 1.50 Current Medications Acetaminophen (Acetaminophen 325 Mg Tablet) 650 mg PO Q6H PRN PRN PRN Reason: Pain Score 1-10/Temp > 100.7 F Albuterol Sulfate (Albuterol 2.5 Mg/3 Ml Vial.Neb.) 2.5 mg INHALATION Q4H PRN PRN Reason: SOB AND /OR WHEEZING Amlodipine Besylate (Amlodipine 2.5 Mg Tablet) 2.5 mg PO DAILY [facility] Last Admin: 09/24/20 09:42 Dose: 2.5 mg Documented by: Aspirin (Aspirin 81 Mg Tab.Chew) 81 mg PO DAILY@0800 [facility] Last Admin: 09/24/20 09:43 Dose: 81 mg Documented by: Ipratropium Joiner (Ipratropium 0.5 Mg/2.5 Ml Solution) 0.5 mg INHALATION Q6HWA.RT [facility] Levothyroxine Sodium (Levothyroxine 25 Mcg Tablet) 25 mcg PO DAILY@0600 [facility] Last Admin: 09/24/20 06:29 Dose: 25 mcg Documented by: Melatonin (Melatonin 3 Mg Tablet) 3 mg PO QHS PRN PRN PRN Reason: INSOMNIA Metoprolol Tartrate (Metoprolol Tartrate 50 Mg Tablet) 50 mg PO BID [facility] Last Admin: 09/24/20 09:43 Dose: 50 mg Documented by: Ondansetron HCl (Ondansetron 4 Mg/2 Ml Vial) 4 mg IV Q8H PRN PRN PRN Reason: NAUSEA/VOMITING Sodium Chloride (0.9% Saline Lock 10 Ml Syringe) 10 - 40 ml IV UD PRN PRN Reason: SALINE FLUSH Vancomycin HCl (Vancomcyin 125 Mg/5 Ml Susp Po.Syringe) 125 mg PO Q6 [facility] Last Admin: 09/24/20 11:54 Dose: 125 mg Documented by: Assessment/Plan Patient seen by Diana CHRISTINE under my supervision. 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 She had been having such symptoms previously, and had a loop recorder placed after a 30-day event monitor, cardiac cath and echoc ardiogram were all unremarkable. Loop recorder interrogation done today showed brief episode of SVT noted to. She sees dizziness gets worse with movement. Previous times otherwise negative. O/E: Vital Signs Temp Pulse Resp BP Pulse Ox 97.9 F 72 16 106/63 94 09/24/20 14:28 09/24/20 14:28 09/24/20 14:28 09/24/20 14:28 09/24/20 14:28 Plan is to get a carotid ultrasound of the neck since 20 hemodynamically significant stenosis. PT OT on board. Fall precautions. Unable to have MRI because of the loop recorder in place. On oral vancomycin for C. difficile. Consider neurology consult if vertigo is persistent. Rest as per EMMETT Price's notes which I reviewed and endorsed. OBSV E&M: [id number] Subsequent observation care L2
--- NOTE | 2020-09-24 14:56 | NURSING ---
Read and reviewed SN documentation
[2020-09-24] MEDS: Ipratropium 0.5 MG/2.5 ML SOLUTION INHALATION (19:57)
[2020-09-24] MEDS: Albuterol 2.5 MG/3 ML VIAL.NEB. INHALATION (20:02)
[2020-09-25 03:30] VITALS: BP 124/70; PULSE 85; RESP 18; TEMP 37.1; O2SAT 96
[2020-09-25 03:39] VITALS: PULSE 88
[2020-09-25] MEDS: Levothyroxine 25 MCG TABLET PO (06:29)
[2020-09-25 06:53] VITALS: PULSE 89
[2020-09-25 08:26] LABS: Hematocrit 39.3 % (37-47); Hemoglobin 12.5 g/dL (12.0-15.0); Mean Corp Hgb Conc 31.8 g/dL (32-36); Mean Corpuscular Hgb 32.2 pg (27.0-32.0); Mean Corpuscular Volume 101.3 fL (81-99); Mean Platelet Vol. 10.5 fl (6.2-12.0); Platelet Count 368 K/mm3 (150-450); RBC Distribution Width CV 14.1 % (11.6-14.6); RBC Distribution Width SD 52.8 fl (35.1-43.9); Red Blood Count 3.88 M/mm3 (4.2-5.4); White Blood Count 15.5 K/mm3 (4.4-11.0)
[2020-09-25 08:46] VITALS: PULSE 67
[2020-09-25] MEDS: Metoprolol Tartrate 50 MG Tablet PO (08:46)
[2020-09-25] MEDS: amLODIPine 2.5 MG Tablet PO (08:46)
[2020-09-25] MEDS: Aspirin 81 MG TAB.CHEW PO (08:46)
[2020-09-25 09:05] LABS: Anion Gap 7 (5-15); BUN 18 mg/dL (7-18); BUN/Creat Ratio 7.2 RATIO (10-20); Calcium,Total 8.1 mg/dL (8.5-10.1); Chloride 114 mmol/L (98-107); Creatinine, Serum 2.49 mg/dL (0.55-1.02); EST Glomerular Filtration Rate 20 mL/min (>60); Est Glom Filt Rate - Afr Amer 25 mL/min (>60); Estimated Creatinine Clearance 21.81 ml/min; Glucose 90 mg/dL (74-106); Potassium 3.3 mmol/L (3.5-5.1); Sodium Level 140 mmol/L (136-145)
[2020-09-25 09:17] VITALS: O2SAT 96
[2020-09-25 09:30] VITALS: BP 131/75; PULSE 87; RESP 16; TEMP 36.9; O2SAT 96
--- NOTE | 2020-09-25 11:21 | DCINST_ITS ---
- Discharge Diagnoses Current Active Problems: Current Active and Chronic Problems (Last Reviewed 09/23/20 @ 15:[address] Julianna Matthews, DO) Vertigo (Acute) Status post placement of implantable loop recorder (Chronic ~03/29/20) Chronic renal failure, stage 4 (severe) (Chronic) Essential hypertension (Chronic) LULY (acute kidney injury) (Acute) Bilateral hydronephrosis (Chronic) worsening. Hyperlipidemia (Chronic) Mild intermittent asthma (Chronic) You will use the following diet at home:: No restrictions Discharge Activity: Return to Normal Activity Call your doctor if you observe: Fever of 101 or Higher, Shortness of breath, Dizziness, Fainting spells, Chest pain, - - Persistant diarrhea Allergies/Adverse Reactions: Allergies pravastatin Allergy (Verified 09/23/20 11:44) Chest tightness procaine [From Novocain] Allergy (Verified 09/23/20 11:44) NEEDS FOLLOW-UP Pt doesn't know sulfamethoxazole [From Bactrim] Allergy (Verified 09/23/20 11:44) Shortness of breath trimethoprim [From Bactrim] Allergy (Verified 09/23/20 11:44) Shortness of breath clindamycin Adverse Reaction (Verified 09/23/20 11:44) unsure of reaction She thinks Levaquin or Clindamycin causes trouble breathing & swelling of feet levofloxacin [From Levaquin] Adverse Reaction (Verified 09/23/20 11:44) UNSURE OF REACTION Pt thinks Levaquin or Clindamycin cause difficulty breathing & swelling of feet methylprednisolone Adverse Reaction (Verified 09/23/20 11:44) Pain in joints novacaine Allergy (Uncoded 09/23/20 11:44) Unknown Medications to take at Discharge albuterol sulfate 90 mcg/actuation aerosol inhaler 2 puff INHALATION Q6H PRN 07/25/18 Metoprolol Tartrate [Lopressor (beta dustin)] 50 mg PO BID 01/27/19 Levothyroxine [Synthroid] 25 mcg PO DAILY 01/09/20 Ipratropium [place] 1 spray INHALATION BID 09/01/20 Potassium Chloride [Klor-Con M20] 20 meq PO DAILY 09/01/20 Amlodipine [Norvasc] 2.5 mg PO DAILY 09/23/20 Meclizine HCl 12.5 mg PO TID PRN #30 tab 09/25/20 Vancomycin HCl 125 mg PO 4X/DAY #40 cap 09/25/20 The following prescriptions were given: Meclizine HCl 12.5 mg PO TID PRN #30 tab PRN Reason: Vertigo Transmission Status: Pending to [id number] Vancomycin HCl 125 mg PO 4X/DAY #40 cap Transmission Status: Pending to [id number] Primary Care Physician: Gerardo García Chi, MD [Primary Care Provider] - Please follow up with your Primary Care Physician in: 1 Week Test Results: Test results from this visit will be discussed in further detail at your follow- up appointment, if applicable. Please Follow Up With: Cardiology When: As scheduled Proposed Discharge Date: 09/25/20
--- NOTE | 2020-09-25 11:25 | DS.PCM_ITS ---
<Diana Little ROD BUSTER HELPER - Last Filed: 09/25/20 11:32> Discharge Date and Diagnosis - Problem List Patient Problems: Active and Suspected Problems (Last Reviewed 09/23/20 @ 15:[address] Julianna Matthews DO) Vertigo (Acute) LULY (acute kidney injury) (Acute) Date of Admission: 09/23/20 Date of Discharge: 09/25/20 - Primary Discharge Diagnosis Acute Problems: Active Problems (Last Reviewed 09/23/20 @ 15:[address] Julianna Matthews DO) 1. Vertigo, ongoing history of recurrent near syncope 2. Persistent C. difficile infection 3. Chronic kidney disease stage IV 4. Hypertension 5. Chronic asthma 6. Hypothyroidism - Secondary Discharge Diagnosis Chronic Problems: Chronic Problems (Last Reviewed 09/23/20 @ 15:[address] Julianna Matthews DO) Status post placement of implantable loop recorder (Chronic ~03/29/20) Chronic renal failure, stage 4 (severe) (Chronic) Essential hypertension (Chronic) Bilateral hydronephrosis (Chronic) worsening. Hyperlipidemia (Chronic) Mild intermittent asthma (Chronic) Hospital Course and Treatment Imaging Results: Diagnostic Data Brain CT 09/23/20 12:18 IMPRESSION: Normal unenhanced CT scan of the brain. Electronically Signed: Ike Eldon, at 12:42 EST , Service support , Operations: None, - - 05/31/19 Ultrasound-guided right IJ temporary dialysis catheter insertion, 06/04/19 19 cm pre-curved right internal jugular double- lumen hemodialysis catheter placement, 06/06/19 Ultrasound-guided left internal jugular pre-curved 23 cm palindrome catheter placement, removal right internal jugular palindrome catheter. Procedures: - - Carotid US Summary of Care Provided: The patient is a 70 year old F admitted 09/23/2020 secondary to vertigo. 1. Vertigo, ongoing history of recurrent near syncope-patient has been following with cardiology and under gone 30-day event monitor, echocardiogram, cardiac catheterization and subsequent loop recorder placement. All of which to date have been unremarkable. Loop recorder interrogation completed during admission which showed brief episode of SVT in August. Otherwise no recent arrhythmias. Brain CT normal. Orthostatic vitals negative. Echocardiogram March 2020 demonstrated an EF of 55%, mild aortic valve insufficiency. Unable to have MRI/MRA secondary to loop recorder implant. CTA contraindicated secondary to CKD stage IV. Carotid ultrasound demonstrates less than 50% stenosis bilaterally. Suspect ongoing symptoms are related to vertigo given extensive unremarkable work-up and symptom onset seems to be positional. As needed meclizine at discharge. Follow-up with PCP in 1 week. 2. Persistent C. difficile infection-following treatment with antibiotics for cellulitis. Patient completed outpatient course of vancomycin a few weeks ago. She continues to have diarrhea. Repeat stool sample positive for C. difficile. Continue oral vancomycin 125 mg 4 times daily for 10 days at discharge. Patient may need tapered course if she continues to have diarrhea following 10-day course. Follow-up with PCP in 1 week as noted above. 3. Chronic kidney disease stage IV-follows with Dr. Matthews, nephrology. 4. Hypertension-stable, continue amlodipine, metoprolol. 5. Chronic asthma-as needed albuterol aerosol. 6. Hypothyroidism-continue Synthroid regimen. General: Alert, Oriented x3, Cooperative HEENT: Atraumatic, PERRLA, EOMI, Normocephalic Neck: Supple, No JVD, Negative Carotid Bruits Lungs: Clear to auscultation, Normal air movement Cardiovascular: Regular rate, No murmurs Abdomen: Bowel Sounds Present, Soft, Non Tender, Non-Distended Extremities: No clubbing, No cyanosis, No edema, Capillary Refill Less than 3 Seconds Skin: No rashes, No breakdown Musculoskeletal: No Tenderness to Palpation of Joints or Extremities Neurological: Cranial nerves II-XII grossly intact, Neuro grossly intact Psych/Mental Status: Normal Affect, Appropriate Patient seen and examined prior to discharge. Physical assessment as noted above. Patient is stable for discharge with follow up recommendations as noted above. This patient was seen by EMMETT Price under the supervision of Dr. Mcrae. Patient Problems: Active and Suspected Problems (Last Reviewed 09/23/20 @ 15:[address] Julianna Matthews, DO) Vertigo (Acute) LULY (acute kidney injury) (Acute) - Physical Exam Vitals/I&O's: Vital Signs Temp Pulse Resp BP Pulse Ox 98.5 F 87 16 131/75 H 96 09/25/20 09:30 09/25/20 09:30 09/25/20 09:30 09/25/20 09:30 09/25/20 09:30 Oxygen Delivery Method Room Air Weight: 171 lb 1.259 oz Body Mass Index (BMI) 25.9 Finger Stick Blood Glucose 92 Intake and Output for Last 24 Hours 09/23/20 09/24/20 09/25/20 23:59 23:59 23:59 Intake Total 1550 / 1550 1710 / 1710 300 / 300 Output Total 650 / 650 Balance 1550 / 1550 1060 / 1060 300 / 300 Microbiology Past 72 Hours 09/23/20 16:58 Stool C. difficile GDH Antigen & Toxins - Final Toxigenic C. difficile 09/23/20 16:58 Stool C. difficile DNA Amplification - Final Laboratory Results 09/25/20 08:03: WBC 15.5 H, RBC 3.88 L, Hgb 12.5, Hct 39.3, MCV 101.3 H, MCH 32.2 H, MCHC 31.8 L, RDW Std Deviation 52.8 H, RDW Coeff of Dewey 14.1, Plt Count 368, MPV 10.5 09/25/20 08:03: Sodium 140, Potassium 3.3 L, Chloride 114 H, Carbon Dioxide 19.0 L, Anion Gap 7, BUN 18, Creatinine 2.49 H, Estim Creat Clear Calc 21.81, Est GFR (MDRD) Af Amer 25 L, Est GFR (MDRD) Non-Af 20 L, BUN/Creatinine Ratio 7.2 L, Glucose 90, Calcium 8.1 L Current Medications Acetaminophen (Acetaminophen 325 Mg Tablet) 650 mg PO Q6H PRN PRN PRN Reason: Pain Score 1-10/Temp > 100.7 F Albuterol Sulfate (Albuterol 2.5 Mg/3 Ml Vial.Neb.) 2.5 mg INHALATION Q4H PRN PRN Reason: SOB AND /OR WHEEZING Last Admin: 09/24/20 20:02 Dose: 2.5 mg Documented by: Amlodipine Besylate (Amlodipine 2.5 Mg Tablet) 2.5 mg PO DAILY [facility] Last Admin: 09/25/20 08:46 Dose: 2.5 mg Documented by: Aspirin (Aspirin 81 Mg Tab.Chew) 81 mg PO DAILY@0800 [facility] Last Admin: 09/25/20 08:46 Dose: 81 mg Documented by: Ipratropium [place] (Ipratropium 0.5 Mg/2.5 Ml Solution) 0.5 mg INHALATION Q6HWA.RT [facility] Last Admin: 09/24/20 19:57 Dose: 0.5 mg Documented by: Levothyroxine Sodium (Levothyroxine 25 Mcg Tablet) 25 mcg PO DAILY@0600 [facility] Last Admin: 09/25/20 06:29 Dose: 25 mcg Documented by: Melatonin (Melatonin 3 Mg Tablet) 3 mg PO QHS PRN PRN PRN Reason: INSOMNIA Metoprolol Tartrate (Metoprolol Tartrate 50 Mg Tablet) 50 mg PO BID [facility] Last Admin: 09/25/20 08:46 Dose: 50 mg Documented by: Ondansetron HCl (Ondansetron 4 Mg/2 Ml Vial) 4 mg IV Q8H PRN PRN PRN Reason: NAUSEA/VOMITING Sodium Chloride (0.9% Saline Lock 10 Ml Syringe) 10 - 40 ml IV UD PRN PRN Reason: SALINE FLUSH Vancomycin HCl (Vancomcyin 125 Mg/5 Ml Susp Po.Syringe) 125 mg PO Q6 [facility] Last Admin: 09/25/20 06:29 Dose: 125 mg Documented by: Discharge Diet: No Restrictions Discharge Activity: Return to Normal Activity Call your doctor if you observe: Fever of 101 or Higher, Shortness of breath, Dizziness, Fainting spells, Chest pain, - - Persistant diarrhea Home Medications: Medications to take at Discharge albuterol sulfate 90 mcg/actuation aerosol inhaler 2 puff INHALATION Q6H PRN 07/25/18 Metoprolol Tartrate [Lopressor (beta dustin)] 50 mg PO BID 01/27/19 Levothyroxine [Synthroid] 25 mcg PO DAILY 01/09/20 Ipratropium [place] 1 spray INHALATION BID 09/01/20 Potassium Chloride [Klor-Con M20] 20 meq PO DAILY 09/01/20 Amlodipine [Norvasc] 2.5 mg PO DAILY 09/23/20 Meclizine HCl 12.5 mg PO TID PRN #30 tab 09/25/20 Vancomycin HCl 125 mg PO 4X/DAY #40 cap 09/25/20 Following Prescriptions Were Given to Patient: Meclizine HCl 12.5 mg PO TID PRN #30 tab PRN Reason: Vertigo Transmission Status: Received by [id number] Vancomycin HCl 125 mg PO 4X/DAY #40 cap Transmission Status: Received by [id number] Primary Care Physician: Gerardo García Chi, MD [Primary Care Provider] - Please follow up with your Primary Care Physician in: 1 Week Please Follow Up With: Cardiology When: As scheduled Disposition: Home Minutes spent on discharge:: 35 Patient Condition:: Stable Medical Necessity - Tobacco Use Smoking Status: Former smoker Tobacco Use: Cigarettes Meaningful Use Info Meaningful Use Diagnoses (Choose all that apply): None applicable <Alivia Mcrae - Last Filed: 09/25/20 12:32> Discharge Date and Diagnosis - Primary Discharge Diagnosis Acute Problems: Active Problems (Last Reviewed 09/23/20 @ 15:[address] Julianna Matthews DO) Vertigo (Acute) LULY (acute kidney injury) (Acute) - Secondary Discharge Diagnosis Chronic Problems: Chronic Problems (Last Reviewed 09/23/20 @ 15:[address] Julianna Matthews DO) Status post placement of implantable loop recorder (Chronic ~03/29/20) Chronic renal failure, stage 4 (severe) (Chronic) Essential hypertension (Chronic) Bilateral hydronephrosis (Chronic) worsening. Hyperlipidemia (Chronic) Mild intermittent asthma (Chronic) Hospital Course and Treatment Summary of Care Provided: Patient seen by Diana CHRISTINE under my supervision The patient is a 70 year old F with a PMH as outlined who was admitted via the ED on 09/23/2020 with a complaint of vertigo while she was having her hair washed out her head is silent. She felt like the world was spinning around her. She had had several episodes like this in the past and had been worked up with 2D echo event recorder and had a loop recorder in place. Nothing has been found so far. She had also been recently treated for C. difficile infection and her diarrhea had improved markedly. Vitals were stable. MRI could not be done to assess for posterior circulation problems because of renal failure and loop recorder being in place. She was admitted and managed for vertigo. Carotid ultrasound showed less than 50% internal carotid artery stenosis bilaterally. Her loop recorder was interrogated which showed a brief episode of SVT in August and was otherwise normal. CT of the brain was also normal and orthostat ics were negative. Patient remained stable and vertigo improved. No clear cause of the vertigo could be determined. She was discharged on p.o. meclizine and is to follow-up with her primary care doctor in 1 to 2 weeks. Patient seen and examined prior to discharge. She had no complaints and felt well, and wanted to be discharged home. Review of systems is otherwise negative. Labs and vitals reviewed. Home meds reviewed and reconciled. O/E: Vital Signs Temp Pulse Resp BP Pulse Ox 98.5 F 87 16 131/75 H 96 09/25/20 09:30 09/25/20 09:30 09/25/20 09:30 09/25/20 09:30 09/25/20 09:30 [] General: Alert, Oriented x3, Cooperative HEENT: Atraumatic, PERRLA, EOMI, Normocephalic Neck: Supple, No JVD, Negative Carotid Bruits Lungs: Clear to auscultation, Normal air movement Cardiovascular: Regular rate, No murmurs Abdomen: Bowel Sounds Present, Soft, Non Tender, Non-Distended Extremities: No clubbing, No cyanosis, No edema, Capillary Refill Less than 3 Seconds Skin: No rashes, No breakdown Musculoskeletal: No Tenderness to Palpation of Joints or Extremities Neurological: Cranial nerves II-XII grossly intact, Neuro grossly intact Psych/Mental Status: Normal Affect, Appropriate Plan is for discharge home today. - Physical Exam Vitals/I&O's: Vital Signs Temp Pulse Resp BP Pulse Ox 98.5 F 87 16 131/75 H 96 09/25/20 09:30 09/25/20 09:30 09/25/20 09:30 09/25/20 09:30 09/25/20 09:30 Oxygen Delivery Method Room Air Weight: 171 lb 1.259 oz Body Mass Index (BMI) 25.9 Finger Stick Blood Glucose 92 Intake and Output for Last 24 Hours 09/23/20 09/24/20 09/25/20 23:59 23:59 23:59 Intake Total 1550 / 1550 1710 / 1710 600 / 600 Output Total 650 / 650 Balance 1550 / 1550 1060 / 1060 600 / 600 Microbiology Past 72 Hours 09/23/20 16:58 Stool C. difficile GDH Antigen & Toxins - Final Toxigenic C. difficile 09/23/20 16:58 Stool C. difficile DNA Amplification - Final Laboratory Results 09/25/20 08:03: WBC 15.5 H, RBC 3.88 L, Hgb 12.5, Hct 39.3, MCV 101.3 H, MCH 32.2 H, MCHC 31.8 L, RDW Std Deviation 52.8 H, RDW Coeff of Dewey 14.1, Plt Count 368, MPV 10.5 09/25/20 08:03: Sodium 140, Potassium 3.3 L, Chloride 114 H, Carbon Dioxide 19.0 L, Anion Gap 7, BUN 18, Creatinine 2.49 H, Estim Creat Clear Calc 21.81, Est GFR (MDRD) Af Amer 25 L, Est GFR (MDRD) Non-Af 20 L, BUN/Creatinine Ratio 7.2 L, Glucose 90, Calcium 8.1 L Current Medications Acetaminophen (Acetaminophen 325 Mg Tablet) 650 mg PO Q6H PRN PRN PRN Reason: Pain Score 1-10/Temp > 100.7 F Albuterol Sulfate (Albuterol 2.5 Mg/3 Ml Vial.Neb.) 2.5 mg INHALATION Q4H PRN PRN Reason: SOB AND /OR WHEEZING Last Admin: 09/24/20 20:02 Dose: 2.5 mg Documented by: Amlodipine Besylate (Amlodipine 2.5 Mg Tablet) 2.5 mg PO DAILY [facility] Last Admin: 09/25/20 08:46 Dose: 2.5 mg Documented by: Aspirin (Aspirin 81 Mg Tab.Chew) 81 mg PO DAILY@0800 [facility] Last Admin: 09/25/20 08:46 Dose: 81 mg Documented by: Ipratropium [place] (Ipratropium 0.5 Mg/2.5 Ml Solution) 0.5 mg INHALATION Q6HWA.RT [facility] Last Admin: 09/24/20 19:57 Dose: 0.5 mg Documented by: Levothyroxine Sodium (Levothyroxine 25 Mcg Tablet) 25 mcg PO DAILY@0600 [facility] Last Admin: 09/25/20 06:29 Dose: 25 mcg Documented by: Melatonin (Melatonin 3 Mg Tablet) 3 mg PO QHS PRN PRN PRN Reason: INSOMNIA Metoprolol Tartrate (Metoprolol Tartrate 50 Mg Tablet) 50 mg PO BID [facility] Last Admin: 09/25/20 08:46 Dose: 50 mg Documented by: Ondansetron HCl (Ondansetron 4 Mg/2 Ml Vial) 4 mg IV Q8H PRN PRN PRN Reason: NAUSEA/VOMITING Sodium Chloride (0.9% Saline Lock 10 Ml Syringe) 10 - 40 ml IV UD PRN PRN Reason: SALINE FLUSH Vancomycin HCl (Vancomcyin 125 Mg/5 Ml Susp Po.Syringe) 125 mg PO Q6 [facility] Last Admin: 09/25/20 12:13 Dose: 125 mg Documented by: Inpatient E&M: [id number] Disch Hosp
== END 2020-09-25 11:22 | disposition home or self-care (01) ==
LOC: ED 14:24 → PCU 15:34
PROVIDERS: Nurse Practitioner Family; Admitting Provider Internal Medicine; Emergency Provider Emergency Medicine; PCP Family Medicine Geriatric Medicine; Visit Provider Student in an Organized Health Care Education/Training Program
DX: R55 Syncope and collapse (principal); A04.72 Enterocolitis due to Clostridium difficile, not specified as recurrent; N18.4 Chronic kidney disease, stage 4 (severe); I12.9 Hypertensive chronic kidney disease with stage 1 through stage 4 chronic kidney disease, or unspecified chronic kidney disease; E03.9 Hypothyroidism, unspecified; J45.20 Mild intermittent asthma, uncomplicated; G51.0 Bell's palsy; E78.5 Hyperlipidemia, unspecified; N17.9 Acute kidney failure, unspecified; N13.30 Unspecified hydronephrosis; Z79.899 Other long term (current) drug therapy; Z85.41 Personal history of malignant neoplasm of cervix uteri; Z87.891 Personal history of nicotine dependence
CPT/HCPCS: 36415; 70450; 80048; 80053; 80061; 83735; 84100; 84443; 84484; 85025; 85027; 87493; 93880; 94640; 96360; 96361; 97162; 99218; 99285; G0378

== ENCOUNTER 2020-10-27 14:02 | Emergency (ER) | payer MEDICARE, SELFPAY ==
[2020-09-23 15:49] VITALS: BMI 25.9
[2020-10-27 14:03] VITALS: BP 131/84; PULSE 114; RESP 24; TEMP 36.2; O2SAT 98; BMI 25.8
[2020-10-27 15:54] VITALS: BP 131/90; PULSE 106; RESP 19; O2SAT 96
--- NOTE | 2020-10-27 16:09 | EKG12_ITS ---
Test Reason : Blood Pressure : / mmHG Vent. Rate : 104 BPM Atrial Rate : 104 BPM P-R Int : 140 ms QRS Dur : 082 ms QT Int : 350 ms P-R-T Axes : 045 -04 070 degrees QTc Int : 460 ms Sinus tachycardia with Premature atrial complexes with Aberrant conduction Otherwise normal ECG Confirmed by TARAH CHRISTIAN, DANTE ([id number]), book or script editor RADHA PHILLIPS ([id number]) on 10/29/2020 2:08:34 PM Referred By: STU Confirmed By:DANTE RASCON MD
[2020-10-27 16:26] LABS: Absolute Neutrophil Count 15.9 X10^3/uL (2.0-7.7); Basophil# 0.09 X10^3/uL; Basophil% 0.4 % (0-1); Eosinophil# 0.03 X10^3/uL; Eosinophils% 0.1 % (0-5); Hematocrit 41.5 % (37-47); Hemoglobin 13.7 g/dL (12.0-15.0); Lymphocyte % 21.5 % (19-41); Mean Corpuscular Hgb 32.7 pg (27.0-32.0); Mean Platelet Vol. 10.2 fl (6.2-12.0); Monocyte# 0.98 X10^3/uL; Monocyte% 4.5 % (0-10); NRBC Flagged by Analyzer 0 % (0-5); Neutrophil # 15.93 X10^3/uL (2.7-7.7); Neutrophil % 72.8 % (47-70); Platelet Count 485 K/mm3 (150-450); RBC Distribution Width CV 13.6 % (11.6-14.6); RBC Distribution Width SD 49.2 fl (35.1-43.9); Red Blood Count 4.19 M/mm3 (4.2-5.4); White Blood Count 21.9 K/mm3 (4.4-11.0)
--- NOTE | 2020-10-27 16:30 | RAD_ITS ---
STUDY: X-RAY CHEST REASON FOR EXAM: Female, 70 years old. General illness, nausea, runny nose, small amount diarrhea. chills. Starting 2 days ago. Minimal cough. TECHNIQUE: Single frontal view of the chest. COMPARISON: 08/11/19 FINDINGS: Cardiac silhouette unremarkable. Pulmonary vascularity unremarkable. Aorta unremarkable. No focal airspace opacities. No pleural effusions. Upper abdomen unremarkable. Osseous structures intact. No pneumothorax. RAD/Chest 1 View (Portable) IMPRESSION: No acute cardiopulmonary process identified. Electronically Signed: Karel Emmanuel, at 17:29 EST Tel , Service support ,
[2020-10-27] MEDS: Ondansetron 4 MG/2 ML Vial IV (16:40)
[2020-10-27 16:47] LABS: ALB/GLOB Ratio 0.3 RATIO (0.9-2.4); AST(SGOT) 9 U/L (15-37); Alanine Aminotransfer ALT/SGPT 10 U/L (13-56); Albumin, Serum 2.2 g/dL (3.2-5.0); Alkaline Phosphatase 113 U/L (45-117); Anion Gap 10 (5-15); BUN 21 mg/dL (7-18); BUN/Creat Ratio 7.9 RATIO (10-20); Calcium,Total 8.3 mg/dL (8.5-10.1); Chloride 101 mmol/L (98-107); Creatinine, Serum 2.67 mg/dL (0.55-1.02); EST Glomerular Filtration Rate 19 mL/min (>60); Est Glom Filt Rate - Afr Amer 23 mL/min (>60); Estimated Creatinine Clearance 20.34 ml/min; Globulin 6.9 g/dL (2.2-4.2); Glucose 111 mg/dL (74-106); Potassium 4.3 mmol/L (3.5-5.1); Protein, Total 9.1 g/dL (6.4-8.2); Sodium Level 135 mmol/L (136-145)
--- NOTE | 2020-10-27 16:56 | ED.DCSUM_ITS ---
- ER Visit Summary Date of Service: 10/27/20 Chief Complaint: General illness History of Present Illness: The patient is a 70 F who presents with subjective chills, rhinorrhea, nausea, vomiting, headache, and weakness that began yesterday. Patient states it is gradually gotten worse. Patient states she fe els aching all over. Patient denies any loss of taste or smell. Patient states nothing makes her symptoms better or worse. Patient admits to subjective chills but did not take her temperature. Patient denies any chest pain or shortness of breath. Patient denies any cough. Physical Examination: Vital signs are stable except for mild tachycardia of 114 and a mild tachypnea of 24. Patient is afebrile. Patient is in no acute distress. Oral mucosa is pink and moist. Neck is supple. Trachea is midline. There is no JVD noted. Heart was regular rate and rhythm. Lungs are clear and equal bilaterally. Abdomen is soft. Bowel sounds are normal. There is no tenderness. There is no rebound or guarding noted. Skin is warm dry. Cranial nerves II through XII are intact. There are no focal motor or sensory deficits noted. Extremities are intact. There is no calf tenderness or edema. Test Results: EKG was obtained. On my interpretation there is a sinus tachycardia with occasional PAC noted. There are no acute ST or T wave changes noted. It was unchanged compared to previous EKG dated 09/01/2020. Portable 1 view chest x-ray was obtained. On my interpretation, lung sanchez are clear. There is normal cardiac silhouette. Bony thorax is normal. There is no acute process noted. Radiologist also interpreted the x-ray and agrees. CBC shows a leukocytosis of 21.9. Platelets were also slightly elevated at 485. Comprehensive metabolic profile was within normal limits. Lactate was normal. Troponin was normal. Emergency Department Course and Treatment: Patient was given a dose of Zofran here. Patient was feeling better on reevaluation. Patient was given a prescription for Zofran. Patient was instructed to follow-up with her primary care physician in 5 to 7 days. Patient was instructed to continue her antibiotic for her C. difficile until it is gone. I believe the leukocytosis is most likely secondary to the C. difficile infection. Patient was instructed return if worse in any way. Patient understood and was agreeable with the plan. All questions were answered. Disposition: Discharge home Impression: 1. Viral illness This note was generated with [employer] dictation software. It may contain incorrect words, spelling, and punctuation that were not noted in review of the chart prior to signing ED Disposition - Plan for ED Patient: Disposition: Home or Assisted Living Diagnosis: Viral illness Instructions: ED Viral Syndrome (Adult) Referrals: Gerardo García Chi, MD [Primary Care Provider] - 5-7 Days
[2020-10-27 16:58] LABS: Lactic Acid 1.2 mmol/L (0.4-1.9)
[2020-10-27 17:18] VITALS: BP 116/83; PULSE 102; RESP 21
[2020-10-27 17:55] VITALS: BP 123/83; PULSE 103; RESP 21
[2020-10-27 20:19] VITALS: PULSE 106; RESP 18; O2SAT 95
== END 2020-10-27 20:30 | disposition home or self-care (01) ==
PROVIDERS: Emergency Provider Emergency Medicine; PCP Family Medicine Geriatric Medicine
DX: B34.9 Viral infection, unspecified (principal)
CPT/HCPCS: 71045; 80053; 83605; 84484; 85025; 87040; 87426; 93005; 96374; 99283; J2405

== ENCOUNTER → 2020-11-05 11:22 | Outpatient (CLI) | payer MEDICARE, SELFPAY ==
[2020-10-27 14:03] VITALS: BMI 25.8
[2020-11-05 13:20] LABS: Absolute Lymphocyte Count 4.22 X10^3/uL (0.83-4.51); Absolute Neutrophil Count 10.8 X10^3/uL (2.0-7.7); Basophil# 0.11 X10^3/uL; Basophil% 0.7 % (0-1); Eosinophil# 0.14 X10^3/uL; Eosinophils% 0.9 % (0-5); Hematocrit 44.5 % (37-47); Hemoglobin 13.7 g/dL (12.0-15.0); Lymphocyte # 4.22 X10^3/ul (4.0); Lymphocyte % 25.7 % (19-41); Mean Corp Hgb Conc 30.8 g/dL (32-36); Mean Corpuscular Hgb 31.2 pg (27.0-32.0); Mean Corpuscular Volume 101.4 fL (81-99); Mean Platelet Vol. 10.7 fl (6.2-12.0); Monocyte% 5.5 % (0-10); NRBC Flagged by Analyzer 0 % (0-5); Neutrophil # 10.83 X10^3/uL (2.7-7.7); Neutrophil % 65.7 % (47-70); Platelet Count 590 K/mm3 (150-450); Red Blood Count 4.39 M/mm3 (4.2-5.4); White Blood Count 16.5 K/mm3 (4.4-11.0)
[2020-11-05 13:25] LABS: Anion Gap 10 (5-15); BUN 25 mg/dL (7-18); BUN/Creat Ratio 8.1 RATIO (10-20); Calcium,Total 8.8 mg/dL (8.5-10.1); Chloride 103 mmol/L (98-107); EST Glomerular Filtration Rate 16 mL/min (>60); Est Glom Filt Rate - Afr Amer 19 mL/min (>60); Glucose 111 mg/dL (74-106); Sodium Level 135 mmol/L (136-145)
== END ==
PROVIDERS: PCP Family Medicine Geriatric Medicine; Referring Provider Family Medicine Geriatric Medicine; Visit Provider Family Medicine Geriatric Medicine
DX: R53.83 Other fatigue (principal)
CPT/HCPCS: 36415; 80048; 85025; 87077; 87086; 87088; 87186

== ENCOUNTER → 2020-11-09 09:55 | Outpatient (CLI) | payer MEDICARE, SELFPAY ==
[2020-09-23 15:49] VITALS: BMI 25.9
[2020-10-27 14:03] VITALS: BMI 25.8
--- NOTE | 2020-11-09 09:57 | VDUE_ITS ---
Reason For Study: Pre-op, chronic kidney disease stage IV Right Arm Left Arm Right cephalic vein is compressible. Left cephalic vein is compressible. Right Cephalic Vein at the shoulder Left Cephalic Vein at the shoulder measures .2 x .21 cm. measures .15 x .16 cm. Right Cephalic Vein mid bicep measures .26 Left Cephalic Vein at mid bicep measures .15 x .26 cm. x .14 cm. Right Cephalic Vein above antecub Left Cephalic Vein above antecub measures .1 measures .22 x .24 cm. x .1 cm. Right Cephalic Vein below antecub Left Cephalic Vein below antecub measures .17 measures .21 x .26 cm. x .16 cm. Right Cephalic Vein in the forearm Left Cephalic Vein in the forearm measures .21 x .24 cm. measures .27 x .29 cm. Right Cephalic Vein at the wrist measures .22 Left Cephalic Vein at the wrist measures .23 x .22 cm. x .27 cm. Right basilic vein is compressible. Left basilic vein is compressible. Right Basilic Vein mid bicep measures .09 Basilic vein at bicep measures .39 x .39 cm. x .11 cm. Basilic vein above antecub measures .37 x .36 Right Basilic Vein above antecub measures .16 cm. x .16 cm. Basilic vein below antecub measures .19 x .17 Right Basilic Vein below antecub measures .1 cm. x .13 cm. Basilic vein in the forearm measures .21 Right Basilic Vein in the forearm x .22 cm. measures .17 x .17 cm. Basilic vein at the wrist measures .19 x .19 Right Basilic Vein at the wrist measures .14 cm. x .15 cm. Brachial art .28 x .30 cm. Brachial art .27 x .27 cm. Brachial art 78.1 cm/s. Brachial art 71.6 cm/s. Radial art .14 x .14 cm. Radial art .11 x .10 cm. Radial art 55.9 cm/s. Radial art 25.9 cm/s. Interpretation Summary Patent and compressible bilateral upper extremity cephalic and basilic veins is noted. Diameters measured bilaterally for cephalic veins, basilic veins, radial arteries, brachial arteries are all diminutive except for the left upper arm basilic vein. Please refer to the previous abnormal bilateral upper extremity vein mapping of July 11, 2019 Ordering Physician: Gerardo García Performed By: Marlon Vanegas RVT ?
== END ==
LOC: CVS 09:56
PROVIDERS: PCP Family Medicine Geriatric Medicine; Referring Provider Family Medicine Geriatric Medicine; Visit Provider Family Medicine Geriatric Medicine
DX: Z01.818 Encounter for other preprocedural examination (principal); N18.4 Chronic kidney disease, stage 4 (severe)
CPT/HCPCS: 93970

== ENCOUNTER → 2020-11-30 17:04 | Outpatient (CLI) | payer MEDICARE, SELFPAY | PROVIDERS: PCP Family Medicine Geriatric Medicine; Visit Provider Urology | DX: N39.0 Urinary tract infection, site not specified (principal) | CPT/HCPCS: 87086; 87088 ==

== ENCOUNTER → 2020-12-10 11:38 | Outpatient (CLI) | payer MEDICARE, SELFPAY ==
[2020-07-13 12:57] VITALS: BMI 27.0
[2020-12-10 12:55] LABS: PTHIN 119.9 pg/mL (18.4-80.1)
[2020-12-10 13:47] LABS: Albumin, Serum 2.5 g/dL (3.2-5.0); BUN 16 mg/dL (7-18); BUN/Creat Ratio 7.4 RATIO (10-20); Calcium,Total 8.3 mg/dL (8.5-10.1); Chloride 105 mmol/L (98-107); Creatinine, Serum 2.15 mg/dL (0.55-1.02); EST Glomerular Filtration Rate 24 mL/min (>60); Est Glom Filt Rate - Afr Amer 29 mL/min (>60); Glucose 91 mg/dL (74-106); Phosphorus 3.7 mg/dL (2.5-4.9); Potassium 3.8 mmol/L (3.5-5.1); Sodium Level 137 mmol/L (136-145)
== END ==
LOC: LAB 11:40
PROVIDERS: Internal Medicine Nephrology; PCP Family Medicine Geriatric Medicine; Referring Provider Family Medicine Geriatric Medicine; Visit Provider Family Medicine Geriatric Medicine
DX: N18.4 Chronic kidney disease, stage 4 (severe) (principal); N25.81 Secondary hyperparathyroidism of renal origin
CPT/HCPCS: 36415; 80069; 83970

== ENCOUNTER → 2020-12-13 17:23 | Outpatient (CLI) | payer MEDICARE, SELFPAY | PROVIDERS: PCP Family Medicine Geriatric Medicine; Referring Provider Family Medicine Geriatric Medicine; Visit Provider Family Medicine Geriatric Medicine | DX: R68.83 Chills (without fever) (principal) | CPT/HCPCS: 87633; 87635; C9803; U0003 ==

== ENCOUNTER 2020-12-19 11:07 | Inpatient (IN) | payer MEDICARE, SELFPAY ==
[2020-12-19] VITALS (9 sets, daily range): BP systolic 99–119; BP diastolic 65–78; PULSE 72–81; RESP 18–97; TEMP 36.4–36.6; O2SAT 22–98; BMI 26.3; BMI 24.2
--- NOTE | 2020-12-19 11:18 | RAD_ITS ---
STUDY: X-RAY CHEST REASON FOR EXAM: Female, 70 years old. SOB AND COUGH DIAGNOSED WITH COVID THIS PAST SUNDAY PER PATIENT. TECHNIQUE: Single AP portable view of the chest. COMPARISON: 10/27/2020 FINDINGS: Interval placement of an insertable cardiac cath rn. Patchy alveolar opacity in the right lung consistent with right-sided pneumonia per There is no demonstrated pleural abnormality. Normal size heart. Normal mediastinum and wayne. Normal visualized pulmonary arteries. Normal visualized aortic arch and descending thoracic aorta. Normal visualized thoracic spine. Normal visualized ribs, clavicles, and shoulders. There is no demonstrated abnormality of the visualized soft tissue structures of the upper abdomen. RAD/Chest 1 View (Portable) IMPRESSION: Patchy right-sided pneumonia. Electronically Signed: Umer Ayon MD at 12:42 EST Tel , Service support ,
--- NOTE | 2020-12-19 11:18 | EKG12_ITS ---
Test Reason : SOB Blood Pressure : / mmHG Vent. Rate : 074 BPM Atrial Rate : 074 BPM P-R Int : 156 ms QRS Dur : 088 ms QT Int : 394 ms P-R-T Axes : 049 037 066 degrees QTc Int : 437 ms Normal sinus rhythm Normal ECG Confirmed by DANTE RASCON MD ([id number]), deputy editor in chief RADHA PHILLIPS ([id number]) on 12/20/2020 1:11:51 PM Referred By: COY Confirmed By:DANTE RASCON MD
--- NOTE | 2020-12-19 11:19 | ED.VIS.GEN ---
History of Present Illness Chief Complaint: Shortness of Breath Informant: Patient Onset: Days - 10 days Current Severity: Mild Maximum Severity: Moderate Narrative: Patient presents secondary to shortness of breath. She was diagnosed with Covid 8 days ago having developed symptoms a few days ahead of that. Patient states she does have some mild shortness of breath and her oxygen saturations were borderline at home. She states she has been trying to eat and drink. She has had some mild diarrhea. She denies cough. She has had borderline fever. - Past Medical History (1) Chronic renal failure, stage 4 (severe) Status: Chronic (2) Essential hypertension Status: Chronic (3) Hyperlipidemia Status: Chronic (4) Hypothyroid Status: Chronic (5) Mild intermittent asthma Status: Chronic Past Medical History - Allergies and Home Meds Allergies/Adverse Reactions: Allergies pravastatin Allergy (Verified 12/19/20 11:12) Chest tightness procaine [From Novocain] Allergy (Verified 12/19/20 11:12) NEEDS FOLLOW-UP Pt doesn't know sulfamethoxazole [From Bactrim] Allergy (Verified 12/19/20 11:12) Shortness of breath trimethoprim [From Bactrim] Allergy (Verified 12/19/20 11:12) Shortness of breath clindamycin Adverse Reaction (Verified 12/19/20 11:12) unsure of reaction She thinks Levaquin or Clindamycin causes trouble breathing & swelling of feet levofloxacin [From Levaquin] Adverse Reaction (Verified 12/19/20 11:12) UNSURE OF REACTION Pt thinks Levaquin or Clindamycin cause difficulty breathing & swelling of feet methylprednisolone Adverse Reaction (Verified 12/19/20 11:12) Pain in joints novacaine Allergy (Uncoded 12/19/20 11:12) Unknown Primary Care Physician: Gerardo García Chi, MD [Primary Care Provider] - Surgical History: hysterectomy, - - Cholecystectomy; and Mass removed from kidney, rt ureteral stent plaement in 2016, Loop recorder implantation 03/2020 Lives: Spouse/ Significant Other Smoking Status: Former smoker - Family History Paternal Family History: Family History (Last Reviewed 09/23/20 @ 15:[address] Julianna Matthews DO) Father CAD (coronary artery disease) History of coronary artery bypass surgery Family History: Reports: Heart Disease, Hypertension Maternal Family History: Family History (Last Reviewed 09/23/20 @ 15:[address] Julianna Matthews DO) Father CAD (coronary artery disease) History of coronary artery bypass surgery Family History: Reports: Cancer Review of Systems General: Reports: Fever - Borderline fever Eyes: Denies: Visual changes - bilaterally ENT: Denies: Bilateral ear pain Cardiovascular: Denies: Chest pain Respiratory: Reports: Dyspnea. Denies: Cough Gastrointestinal: Reports: Diarrhea. Denies: Abdominal pain, Nausea, Vomiting Genitourinary: Denies: Dysuria Musculoskeletal: Denies: Swelling, Extremity Pain Skin: Denies: Rash Neurological: Denies: Headache Hematologic: Denies: Easy bruising, Easy bleeding Allergy: Denies: Uticaria Physical Exam Vital Signs/Narrative: Vital Signs Temp Pulse Resp BP Pulse Ox 12/19/20 11:11 97.9 F 80 25 H 116/68 96 12/19/20 11:08 97.9 F 79 97 H 116/68 22 Inital Vital Signs reviewed: Yes General: Well nourished, Well developed Head: Normocephalic ENT: Moist mucous membranes Neck: Supple Cardiovascular: Regular rate, Regular rhythm Respiratory: No distress, CTA bilaterally Abdomen: Soft, Nontender, Hypoactive bowel sounds Extremities: Nontender Skin: Normal color Neurological: Alert, Oriented x3 Psychological: Normal affect Diagnostic/Tx/Re-eval Chest X-Ray - ED: 1 View, Read by ED Physician, Right Infiltrate Impressions Chest X-Ray 12/19/20 11:18 IMPRESSION: Patchy right-sided pneumonia. Electronically Signed: Umer Ayon MD at 12:42 EST Tel , Service support , 12/19/20 11:18 Chest 1 View (Portable) [RAD] Stat 12/19/20 12:59 CTA Chest W/WO Contrast [CT] Stat Laboratory Results 12/19/20 12/19/20 12/19/20 12:36 12:36 12:36 WBC 7.7 RBC 4.13 L Hgb 13.0 Hct 40.7 MCV 98.5 MCH 31.5 MCHC 31.9 L RDW Std Deviation 52.7 H RDW Coeff of [place]wey 14.4 Plt Count 322 MPV 9.8 Immature Gran % (Auto) 0.400 Neut % (Auto) 67.1 Lymph % (Auto) 27.4 [place] % (Auto) 3.4 Eos % (Auto) 1.4 Baso % (Auto) 0.3 Absolute Neuts (auto) 5.2 Absolute Lymphs (auto) 2.11 Nucleated RBC % 0 D-Dimer Quant (PE/DVT) 1.70 H* Sodium 137 Potassium 3.8 Chloride 105 Carbon Dioxide 23.0 Anion Gap 9 BUN 17 Creatinine 1.91 H Estim Creat Clear Calc 28.44 Est GFR (MDRD) Af Amer 34 L Est GFR (MDRD) Non-Af 28 L BUN/Creatinine Ratio 8.9 L Glucose 91 Lactic Acid Calcium 8.2 L Total Bilirubin 0.70 Direct Bilirubin 0.21 AST 39 H ALT 28 Alkaline Phosphatase 78 Troponin I < 0.015 Total Protein 8.2 Albumin 2.3 L Globulin 5.9 H 12/19/20 12:36 WBC RBC Hgb Hct MCV MCH MCHC RDW Std Deviation RDW Coeff of [place]wey Plt Count MPV Immature Gran % (Auto) Neut % (Auto) Lymph % (Auto) [place] % (Auto) Eos % (Auto) Baso % (Auto) Absolute Neuts (auto) Absolute Lymphs (auto) Nucleated RBC % D-Dimer Quant (PE/DVT) Sodium Potassium Chloride Carbon Dioxide Anion Gap BUN Creatinine Estim Creat Clear Calc Est GFR (MDRD) Af Amer Est GFR (MDRD) Non-Af BUN/Creatinine Ratio Glucose Lactic Acid 1.1 Calcium Total Bilirubin Direct Bilirubin AST ALT Alkaline Phosphatase Troponin I Total Protein Albumin Globulin - EKG Initial EKG Interpretation: Sinus Rhythm - Sinus at 74 with no acute ischemia. - Medical Decision Making Nursing staff did confirm that EMS noted the patient's O2 sat was 86% on room air at her home. Patient has been able to be on nasal cannula while sitting at rest here and satting in the 90s. Chest x-ray per my interpretation does reveal haziness to the lateral portion of the right lung. Radiologist interpretation is reviewed. Blood work is reviewed and largely unremarkable. Her D-dimer is elevated, however patient does have chronic renal disease and current creatinine is 1.9. At this time we will cover her with a dose of Lovenox and have further testing performed. I do not want to worsen her kidney function in any way. Patient is comfortable with this plan. I will speak with hospitalist regarding admission. Patient did receive a dose of Solu-Medrol with EMS prior to arrival. ED Disposition - Plan for ED Patient: Disposition: Acute Care Hospital [facility] Diagnosis: Pneumonia due to 2019-nCoV Referrals: Gerardo García Chi, MD [Primary Care Provider] -
[2020-12-19 12:47] LABS: Absolute Lymphocyte Count 2.11 X10^3/uL (0.83-4.51); Absolute Neutrophil Count 5.2 X10^3/uL (2.0-7.7); Basophil# 0.02 X10^3/uL; Basophil% 0.3 % (0-1); Eosinophil# 0.11 X10^3/uL; Eosinophils% 1.4 % (0-5); Hematocrit 40.7 % (37-47); Lymphocyte # 2.11 X10^3/ul (4.0); Lymphocyte % 27.4 % (19-41); Mean Corp Hgb Conc 31.9 g/dL (32-36); Mean Corpuscular Hgb 31.5 pg (27.0-32.0); Mean Corpuscular Volume 98.5 fL (81-99); Mean Platelet Vol. 9.8 fl (6.2-12.0); Monocyte# 0.26 X10^3/uL; Monocyte% 3.4 % (0-10); NRBC Flagged by Analyzer 0 % (0-5); Neutrophil # 5.16 X10^3/uL (2.7-7.7); Neutrophil % 67.1 % (47-70); Platelet Count 322 K/mm3 (150-450); RBC Distribution Width CV 14.4 % (11.6-14.6); RBC Distribution Width SD 52.7 fl (35.1-43.9); Red Blood Count 4.13 M/mm3 (4.2-5.4); White Blood Count 7.7 K/mm3 (4.4-11.0)
[2020-12-19 13:05] LABS: AST(SGOT) 39 U/L (15-37); Alanine Aminotransfer ALT/SGPT 28 U/L (13-56); Albumin, Serum 2.3 g/dL (3.2-5.0); Alkaline Phosphatase 78 U/L (45-117); Anion Gap 9 (5-15); BUN 17 mg/dL (7-18); BUN/Creat Ratio 8.9 RATIO (10-20); Bilirubin, Direct 0.21 mg/dL (0.00-0.30); Calcium,Total 8.2 mg/dL (8.5-10.1); Chloride 105 mmol/L (98-107); Creatinine, Serum 1.91 mg/dL (0.55-1.02); EST Glomerular Filtration Rate 28 mL/min (>60); Est Glom Filt Rate - Afr Amer 34 mL/min (>60); Estimated Creatinine Clearance 28.44 ml/min; Globulin 5.9 g/dL (2.2-4.2); Glucose 91 mg/dL (74-106); Potassium 3.8 mmol/L (3.5-5.1); Protein, Total 8.2 g/dL (6.4-8.2); Sodium Level 137 mmol/L (136-145)
[2020-12-19 13:19] LABS: Lactic Acid 1.1 mmol/L (0.4-1.9)
--- NOTE | 2020-12-19 13:27 | NURSING ---
DR EUGENE FOR DR JETT
--- NOTE | 2020-12-19 13:34 | NURSING ---
MS2 COVID KITTOE COVID 19 PNEUMONIA,
--- NOTE | 2020-12-19 13:36 | HP.PCM_ITS ---
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 (12) Hyperlipidemia Status: Chronic Qualifiers: Hyperlipidemia type: unspecified Qualified Code(s): E78.5 - Hyperlipidemia, unspecified (13) Mild intermittent asthma Status: Chronic History of Present Illness Date of Admission: 12/19/20 Chief Complaint: Shortness of breath The patient is a 70 year old F diagnosed with COVID-19 8 days prior to current admission who presented with shortness of breath. Patient reports increasing fatigue, diarrhea as well as shortness of breath which has been worsening with minimal activity. Presented to the emergency department as a result. Patient studies obtained demonstrated right-sided pneumonia. Patient admitted to the cohort floor for subsequent management. Past Medical History Past Medical History (Chronic Problems): Chronic Problems (Last Reviewed 09/23/20 @ 15:[address] Julianna Matthews DO) Hypothyroid (Chronic) Status post placement of implantable loop recorder (Chronic ~03/29/20) Chronic renal failure, stage 4 (severe) (Chronic) Essential hypertension (Chronic) Bilateral hydronephrosis (Chronic) worsening. Hyperlipidemia (Chronic) Mild intermittent asthma (Chronic) Medical History: Medical History (Last Reviewed 12/19/20 @ 13:[address] Andres Good MD) Status post placement of implantable loop recorder (Chronic) Onset Date: ~03/29/20 Z95.818 Chronic renal failure, stage 4 (severe) (Chronic) N18.4 Near syncope (Resolved) R55 Essential hypertension (Chronic) I10 LULY (acute kidney injury) (Acute) N17.9 Bilateral hydronephrosis (Chronic) N13.30 worsening. 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 Cervical cancer (Inactive) C53.9 Problem with dialysis access (Inactive) T82.898A Sepsis (Inactive) A41.9 Allergies pravastatin Allergy (Verified 12/19/20 11:12) Chest tightness procaine [From Novocain] Allergy (Verified 12/19/20 11:12) NEEDS FOLLOW-UP Pt doesn't know sulfamethoxazole [From Bactrim] Allergy (Verified 12/19/20 11:12) Shortness of breath trimethoprim [From Bactrim] Allergy (Verified 12/19/20 11:12) Shortness of breath clindamycin Adverse Reaction (Verified 12/19/20 11:12) unsure of reaction She thinks Levaquin or Clindamycin causes trouble breathing & swelling of feet levofloxacin [From Levaquin] Adverse Reaction (Verified 12/19/20 11:12) UNSURE OF REACTION Pt thinks Levaquin or Clindamycin cause difficulty breathing & swelling of feet methylprednisolone Adverse Reaction (Verified 12/19/20 11:12) Pain in joints novacaine Allergy (Uncoded 12/19/20 11:12) Unknown Home Medications: Ambulatory Orders Medication Instructions Recorded albuterol sulfate 90 mcg/actuation 2 puff INHALATION Q6H PRN 07/25/18 aerosol inhaler Metoprolol Tartrate [Lopressor 50 mg PO BID 01/27/19 (beta dustin)] Levothyroxine [Synthroid] 25 mcg PO DAILY 01/09/20 Ipratropium [place] 1 spray INHALATION BID 09/01/20 Potassium Chloride [Klor-Con M20] 20 meq PO DAILY 09/01/20 Amlodipine [Norvasc] 2.5 mg PO DAILY 09/23/20 Surgical History: Surgical History (Last Reviewed 12/19/20 @ 13:[address] 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 Andres Good MD) Father CAD (coronary artery disease) History of coronary artery bypass surgery History Items: Heart Disease, Hypertension Maternal Family History: Family History (Last Reviewed 12/19/20 @ 13:[address] Andres Good MD) Father CAD (coronary artery disease) History of coronary artery bypass surgery History Items: Cancer Review of Systems Constitutional: Reports: Anorexia, Weakness, Fatigue Cardiovascular: Denies: Chest Pain, Orthopnea, Palpitations, Paroxysmal Noc. Dyspnea Respiratory: Reports: Shortness of Breath Gastrointestinal: Reports: Diarrhea. Denies: Abdominal Pain, Hematemesis, Hematochezia, Nausea Genitourinary: Denies: Dysuria, Frequency, Hematuria, Urgency Musculoskeletal: Denies: Joint Pain, Joint Tenderness Skin: Denies: Rash Psychiatric: Denies: Homicidal Ideations, Suicidal Ideations Hematologic/ Lymphatic: Denies: Easy Bruising, Easy Bleeding VTE Information - Inpt Only VTE Present on Admission: No VTE Mechan Device Prophylaxis: None VTE Pharm Prophylaxis ordered?: Yes Patient Problems: Active and Suspected Problems (Last Reviewed 09/23/20 @ 15:[address] Julianna Matthews, DO) Pneumonia due to 2019-nCoV (Acute) LULY (acute kidney injury) (Acute) Objective: GENERAL: cooperative HEENT: Atraumatic; EYES; Anicteric, Normal Conjunctiva NECK; supple, normal thyroid, RESPIRATORY: Diminished to auscultation CARDIOVASCULAR: Regular S1 S2, GI: soft, normoactive bowel sounds, : No Renal angle tenderness; EXTREMITIES: No edema, no clubbing, MUSCULOSKELETAL: no muscle waisting NEURO: Awake; no lateralizing signs. SKIN: No Rash PSYCH; Flat affect - Physical Exam Vitals/I&O's: Vital Signs Temp Pulse Resp BP Pulse Ox 97.9 F 73 20 H 102/65 94 12/19/20 11:11 12/19/20 12:27 12/19/20 12:27 12/19/20 12:27 12/19/20 12:27 Oxygen Delivery Method Room Air Weight: 78.6 kg Body Mass Index (BMI) 26.3 Finger Stick Blood Glucose 92 Laboratory Results 12/19/20 12:36: WBC 7.7, RBC 4.13 L, Hgb 13.0, Hct 40.7, MCV 98.5, MCH 31.5, MCHC 31.9 L, RDW Std Deviation 52.7 H, RDW Coeff of [place]wey 14.4, Plt Count 322, MPV 9.8, Immature Gran % (Auto) 0.400, Neut % (Auto) 67.1, Lymph % (Auto) 27.4, [place] % (Auto) 3.4, Eos % (Auto) 1.4, Baso % (Auto) 0.3, Absolute Neuts (auto) 5.2, Absolute Lymphs (auto) 2.11, Nucleated RBC % 0 12/19/20 12:36: D-Dimer Quant (PE/DVT) 1.70 H* 12/19/20 12:36: Sodium 137, Potassium 3.8, Chloride 105, Carbon Dioxide 23.0, Anion Gap 9, BUN 17, Creatinine 1.91 H, Estim Creat Clear Calc 28.44, Est GFR (MDRD) Af Amer 34 L, Est GFR (MDRD) Non-Af 28 L, BUN/Creatinine Ratio 8.9 L, Glucose 91, Calcium 8.2 L, Total Bilirubin 0.70, Direct Bilirubin 0.21, AST 39 H , ALT 28, Alkaline Phosphatase 78, Troponin I < 0.015, Total Protein 8.2, Albumin 2.3 L, Globulin 5.9 H 12/19/20 12:36: Lactic Acid 1.1 Assessment/Plan All Active Problems (Last Reviewed 09/23/20 @ 15:[address] Julianna Matthews, DO) Vertigo (Resolved) Pneumonia due to 2019-nCoV (Acute) History of hysterectomy (Resolved) History of cholecystectomy (Resolved) Near syncope (Resolved) LULY (acute kidney injury) (Acute) Acute diarrhea (Resolved) H/O Dunbar's palsy (Resolved) High anion gap metabolic acidosis (Resolved) Hx of cervical cancer (Resolved) Hypokalemia (Resolved) Hyponatremia (Resolved) Urinary tract infection (Resolved) Patient is a 70-year-old ED presented with progressive shortness of breath. Diagnosed with COVID-19 8 days prior to admission. Imaging studies on admission demonstrated right-sided pneumonia 1. Acute COVID-19 pneumonia ?Admitted to the cohort floor. Started on Decadron as well as Rocephin and Zithromax for suspected superimposed pneumonia. Patient was not started on remdesivir in view of her impaired kidney function. Consult placed to ID 2. Hypertension - Blood pressure controlled, home medications continued with dose adjustment as needed 3. Hypothyroidism - Patient is on levothyroxine home dose continued 4. Chronic kidney disease stage IV ?Patient is followed by Dr. Matthews as outpatient 5. Chronic vertigo ?Symptomatic treatment 6. Status post loop recorder implantation 7. Mild intermittent asthma ?Currently not in exacerbation aerosol treatments as needed 8. DVT prophylaxis ?Lovenox 30 mg SC twice daily Advance planning; did discuss with the patient regarding advanced directives as well as CODE STATUS. Did explain the various scenarios involved ( FULL CODE, DNR CCA, DNR CCA with no intubation, and DNR CC and what each meant) patient elected full code with CPR and intubation if needed. Order was placed. Time spent on discussion 18 minutes. Inpatient E&M: 63829 Init Hosp L3 Procedures: 00008 Advncd Care Plan 30 Min
[2020-12-19] MEDS: Enoxaparin 80 MG/0.8 ML Syringe 70 MG SC (14:06)
[2020-12-19] MEDS: 0.9% Normal Saline 1,000 ML 150 ML IV (19:00)
[2020-12-19] MEDS: Ipratropium Bromide 0.06% NASAL SPRAY 1 SPRAY NASAL (19:47)
[2020-12-19] MEDS: guaiFENesin 1,200 MG Tablet 1200 MG PO (19:47)
[2020-12-19] MEDS: Metoprolol Tartrate 50 MG Tablet PO (19:48)
[2020-12-20] VITALS (12 sets, daily range): BP systolic 109–127; BP diastolic 69–79; PULSE 60–96; RESP 17–18; TEMP 36.4–36.8; O2SAT 93–98
[2020-12-20] MEDS: 0.9% Normal Saline 1,000 ML 150 ML IV ×2 (00:49→08:07)
[2020-12-20 06:52] LABS: Absolute Lymphocyte Count 2.08 X10^3/uL (0.83-4.51); Absolute Neutrophil Count 2.9 X10^3/uL (2.0-7.7); Basophil# 0.01 X10^3/uL; Basophil% 0.2 % (0-1); Hematocrit 37.1 % (37-47); Hemoglobin 12.1 g/dL (12.0-15.0); Lymphocyte # 2.08 X10^3/ul (4.0); Lymphocyte % 40.5 % (19-41); Mean Corp Hgb Conc 32.6 g/dL (32-36); Mean Corpuscular Hgb 31.9 pg (27.0-32.0); Mean Corpuscular Volume 97.9 fL (81-99); Mean Platelet Vol. 10.4 fl (6.2-12.0); Monocyte# 0.16 X10^3/uL; Monocyte% 3.1 % (0-10); NRBC Flagged by Analyzer 0 % (0-5); Neutrophil # 2.87 X10^3/uL (2.7-7.7); Neutrophil % 55.8 % (47-70); POSITIVE MORPHOLOGY YES; Platelet Count 352 K/mm3 (150-450); Red Blood Count 3.79 M/mm3 (4.2-5.4); White Blood Count 5.1 K/mm3 (4.4-11.0)
[2020-12-20 06:58] LABS: Differential Indicated SCAN CRITERIA MET
[2020-12-20 07:29] LABS: ALB/GLOB Ratio 0.4 RATIO (0.9-2.4); AST(SGOT) 25 U/L (15-37); Alanine Aminotransfer ALT/SGPT 20 U/L (13-56); Alkaline Phosphatase 70 U/L (45-117); Anion Gap 11 (5-15); BUN 22 mg/dL (7-18); BUN/Creat Ratio 12.9 RATIO (10-20); Chloride 110 mmol/L (98-107); EST Glomerular Filtration Rate 32 mL/min (>60); Est Glom Filt Rate - Afr Amer 38 mL/min (>60); Estimated Creatinine Clearance 31.95 ml/min; Globulin 5.3 g/dL (2.2-4.2); Glucose 118 mg/dL (74-106); Magnesium 2.1 mg/dL (1.6-2.6); Potassium 3.5 mmol/L (3.5-5.1); Protein, Total 7.3 g/dL (6.4-8.2); Sodium Level 139 mmol/L (136-145)
[2020-12-20] MEDS: Levothyroxine 25 MCG TABLET PO (08:40)
[2020-12-20] MEDS: Loperamide 2 MG Capsule PO (08:40)
[2020-12-20] MEDS: Enoxaparin 30 MG/0.3 ML Syringe SC ×2 (08:40→20:25)
[2020-12-20] MEDS: Metoprolol Tartrate 50 MG Tablet PO ×2 (08:41→20:25)
[2020-12-20] MEDS: dexAMETHasone 4 MG Tablet 6 MG PO (08:42)
[2020-12-20] MEDS: guaiFENesin 1,200 MG Tablet 1200 MG PO ×2 (08:43→20:25)
[2020-12-20] MEDS: Ipratropium Bromide 0.06% NASAL SPRAY 1 SPRAY NASAL ×2 (08:43→23:00)
[2020-12-20] MEDS: amLODIPine 2.5 MG Tablet PO (08:43)
--- NOTE | 2020-12-20 13:39 | CASEMGMT ---
SW called pt in room to review how she has been managing at home prior to this hospitalization, and anticipated discharge plan. PCP: Dr. García Specialists: Dr. Strickland, Dr. Matthews, Dr. Patrick Insurance: [employer] Pharmacy: [facility] [place] Living Next of Kin: 5 daughters, Living arrangements and prior level of function: Pt lives home in a two story home w/, daughter and granddaughter. Daughter and granddaughter to not have COVID and stay on a different floor of the home. Pt is normally fully independent with all ADLs including cooking, cleaning, driving, organizing meds, personal care. Pt states her 5 daughters will be willing to help with picking up groceries for pt when she returns home. Pt's also in hospital w/COVID. LW/POA: Pt has not completed the documents, may be interested in completing the forms in the future. SW will ask RN to bring in the forms when she goes into the room next. DME/HHC/SNF: Pt uses no DME, no oxygen, no history of home health or longterm stays. Plan: Pt anticipates being able to return home at discharge, and does not anticipate any homegoing needs. Pt is hopeful to go home today. SW explained will remain available should any discharge needs arise. FREEMAN Santamaria
--- NOTE | 2020-12-20 16:06 | CON.PCM_ITS ---
Problem List (1) Pneumonia due to 2019-nCoV Status: Acute Reason for Consult: covid Consulted by: Dr. Good History of Present Illness: The patient is a 70 year old F with about 8 days of cough, aches, headache, nausea, not feeling well. Dx covid 12/13. also admitted with covid. Feeling better today. Full ROS performed and neg except as noted above. - Medical History Past Medical History (Chronic Problems): Chronic Problems (Last Reviewed 12/19/20 @ 13:[address] Andres Good MD) Hypothyroid (Chronic) Status post placement of implantable loop recorder (Chronic ~03/29/20) Chronic renal failure, stage 4 (severe) (Chronic) Essential hypertension (Chronic) Bilateral hydronephrosis (Chronic) worsening. Hyperlipidemia (Chronic) Mild intermittent asthma (Chronic) Allergies/Adverse Reactions: Allergies pravastatin Allergy (Verified 12/19/20 11:12) Chest tightness procaine [From Novocain] Allergy (Verified 12/19/20 11:12) NEEDS FOLLOW-UP Pt doesn't know sulfamethoxazole [From Bactrim] Allergy (Verified 12/19/20 11:12) Shortness of breath trimethoprim [From Bactrim] Allergy (Verified 12/19/20 11:12) Shortness of breath clindamycin Adverse Reaction (Verified 12/19/20 11:12) unsure of reaction She thinks Levaquin or Clindamycin causes trouble breathing & swelling of feet levofloxacin [From Levaquin] Adverse Reaction (Verified 12/19/20 11:12) UNSURE OF REACTION Pt thinks Levaquin or Clindamycin cause difficulty breathing & swelling of feet methylprednisolone Adverse Reaction (Verified 12/19/20 11:12) Pain in joints novacaine Allergy (Uncoded 12/19/20 11:12) Unknown Home Medications: Ambulatory Orders Medication Instructions Recorded albuterol sulfate 90 mcg/actuation 2 puff INHALATION Q6H PRN 07/25/18 aerosol inhaler Metoprolol Tartrate [Lopressor 50 mg PO BID 01/27/19 (beta dustin)] Levothyroxine [Synthroid] 25 mcg PO DAILY 01/09/20 Ipratropium [place] 1 spray INHALATION BID 09/01/20 Potassium Chloride [Klor-Con M20] 20 meq PO DAILY 10/14/20 Amlodipine [Norvasc] 2.5 mg PO DAILY 09/23/20 - Social History SMOKING STATUS:: Former smoker Vital Signs Temp Pulse Resp BP Pulse Ox 98.2 F 60 18 109/69 95 12/20/20 11:41 12/20/20 11:41 12/20/20 11:41 12/20/20 11:41 12/20/20 15:17 Oxygen Flow Rate (L/min) 1 Oxygen Delivery Method Room Air Weight: 72.4 kg Body Mass Index (BMI) 24.2 Finger Stick Blood Glucose 92 Microbiology Past 72 Hours 12/19/20 19:55 Gram Stain - Final Sputum, Expectorated/Coughed 12/20/20 02:00 Legionella Antigen - Final Urine, Clean Catch Streptococcus pneumoniae Antigen (M - Final Laboratory Tests Past 24 Hrs 12/20/20 12/20/20 06:20 06:20 WBC 5.1 RBC 3.79 L Hgb 12.1 Hct 37.1 MCV 97.9 MCH 31.9 MCHC 32.6 RDW Std Deviation 50.0 H RDW Coeff of [place] 14.0 Plt Count 352 MPV 10.4 Immature Gran % (Auto) 0.400 Neut % (Auto) 55.8 Lymph % (Auto) 40.5 [place] % (Auto) 3.1 Eos % (Auto) 0.0 Baso % (Auto) 0.2 Absolute Neuts (auto) 2.9 Absolute Lymphs (auto) 2.08 Nucleated RBC % 0 Sodium 139 Potassium 3.5 Chloride 110 H Carbon Dioxide 18.0 L Anion Gap 11 BUN 22 H Creatinine 1.70 H Estim Creat Clear Calc 31.95 Est GFR (MDRD) Af Amer 38 L Est GFR (MDRD) Non-Af 32 L BUN/Creatinine Ratio 12.9 Glucose 118 H Calcium 8.0 L Phosphorus 3.0 Magnesium 2.1 Total Bilirubin 0.40 AST 25 ALT 20 Alkaline Phosphatase 70 Total Protein 7.3 Albumin 2.0 L Globulin 5.3 H Albumin/Globulin Ratio 0.4 L - Other Studies Radiology: [] reviewed Other Studies: [] Route of nutrition/ use of supplements: [] Nutritional Intake: [] IV Site: [] Roberts Catheter: [] - Physical Exam General: Alert, Oriented x3, Cooperative, No apparent distress HEENT: Atraumatic, PERRLA, EOMI Neck: Supple, No Nodes Lungs: Clear to auscultation, Normal air movement Cardiovascular: Regular rate, Regular Rhythm Abdomen: Soft, Non Tender, Non-Distended Extremities: No edema Skin: No rashes Musculoskeletal: No Tenderness to Palpation of Joints or Extremities Neurological: Cranial nerves II-XII grossly intact - Assessment/Plan Antibiotics: [] Assessment/Plan: [] Active and Suspected Problems (Last Reviewed 12/19/20 @ 13:[address] Andres Good MD) Pneumonia due to 2019-nCoV (Acute) LULY (acute kidney injury) (Acute) covid with hypoxia - will stop azithro/ceftriaxone. No sputum, low suspicion for bacterial infection. Sx started around 12/13. Sat as low as 93% this AM, will give remdesivir, cont dex for 10 day course. Will follow, thank you
--- NOTE | 2020-12-20 16:47 | PN_ITS ---
Patient Problems: Active and Suspected Problems (Last Reviewed 12/19/20 @ 13:[address] Andres Good MD) Pneumonia due to 2019-nCoV (Acute) LULY (acute kidney injury) (Acute) Subjective: Doing well, completely off oxygen and tolerating room air. No issues overnight. Vitals/I&O's: Vital Signs Temp Pulse Resp BP Pulse Ox 98.2 F 60 18 109/69 95 12/20/20 11:41 12/20/20 11:41 12/20/20 11:41 12/20/20 11:41 12/20/20 15:17 Oxygen Flow Rate (L/min) 1 Oxygen Delivery Method Room Air Weight: 159 lb 9.835 oz Body Mass Index (BMI) 24.2 Finger Stick Blood Glucose 92 Intake and Output for Last 24 Hours 12/18/20 12/19/20 12/20/20 23:59 23:59 23:59 Intake Total 305 / 305 3477.5 / 3477.5 Balance 305 / 305 3477.5 / 3477.5 General: Alert, Oriented x3, Cooperative, No apparent distress HEENT: Atraumatic, PERRLA, EOMI, Normocephalic Oral: Moist Mucosa Neck: Supple, No JVD Lungs: Clear to auscultation, Normal air movement, No rhonchi, No wheeze, No rales, Diminished Cardiovascular: Regular rate, Regular Rhythm, Normal S1, Normal S2, No murmurs Abdomen: Soft, Non Tender, Non-Distended, No Hepato-splenomegaly Extremities: No edema, Capillary Refill Less than 3 Seconds Skin: No rashes, No breakdown Neurological: Neuro grossly intact, Sensory exam intact to light touch and pain Psych/Mental Status: Normal Affect, Appropriate Microbiology Past 72 Hours 12/19/20 19:55 Sputum, Expectorated/Coughed Gram Stain - Final 12/20/20 02:00 Urine, Clean Catch Legionella Antigen - Final 12/20/20 02:00 Urine, Clean Catch Streptococcus pneumoniae Antigen (M - Final Laboratory Results 12/20/20 06:20: WBC 5.1, RBC 3.79 L, Hgb 12.1, Hct 37.1, MCV 97.9, MCH 31.9, MCHC 32.6, RDW Std Deviation 50.0 H, RDW Coeff of [place]wey 14.0, Plt Count 352, MPV 10.4, Immature Gran % (Auto) 0.400, Neut % (Auto) 55.8, Lymph % (Auto) 40.5, [place] % (Auto) 3.1, Eos % (Auto) 0.0, Baso % (Auto) 0.2, Absolute Neuts (auto) 2.9, Absolute Lymphs (auto) 2.08, Nucleated RBC % 0 12/20/20 06:20: Sodium 139, Potassium 3.5, Chloride 110 H, Carbon Dioxide 18.0 L , Anion Gap 11, BUN 22 H, Creatinine 1.70 H, Estim Creat Clear Calc 31.95, Est GFR (MDRD) Af Amer 38 L, Est GFR (MDRD) Non-Af 32 L, BUN/Creatinine Ratio 12.9, Glucose 118 H, Calcium 8.0 L, Phosphorus 3.0, Magnesium 2.1, Total Bilirubin 0.40, AST 25, ALT 20, Alkaline Phosphatase 70, Total Protein 7.3, Albumin 2.0 L, Globulin 5.3 H, Albumin/Globulin Ratio 0.4 L Current Medications Acetaminophen (Acetaminophen 325 Mg Tablet) 650 mg PO Q6H PRN PRN PRN Reason: Pain Score 1-10/Temp > 100.7 F Al Hydroxide/Mg Hydroxide (Mag Hydrox/Al Hydrox/Simeth 30 Ml Udc) 30 ml PO Q6H PRN PRN PRN Reason: Gastric Burning Albuterol Sulfate (Albuterol Sulfate Hfa 6.7 Gm Inhaler (200 Puffs)) 2 puff IH Q4H PRN PRN PRN Reason: SOB &/OR WHEEZING Last Admin: 12/19/20 19:45 Dose: 2 puff Documented by: Amlodipine Besylate (Amlodipine 2.5 Mg Tablet) 2.5 mg PO DAILY [facility] Last Admin: 12/20/20 08:43 Dose: 2.5 mg Documented by: Dexamethasone (Dexamethasone 4 Mg Tablet) 6 mg PO DAILY [facility] Stop: 12/28/20 10:01 Last Admin: 12/20/20 08:42 Dose: 6 mg Documented by: Enoxaparin Sodium (Enoxaparin 30 Mg/0.3 Ml Syringe) 30 mg SC BID [facility] Guaifenesin (Guaifenesin 10 Ml Udc (200mg/10ml)) 20 ml PO Q4H PRN PRN PRN Reason: COUGH Guaifenesin (Guaifenesin 1,200 Mg Tablet) 1,200 mg PO BID [facility] Last Admin: 12/20/20 08:43 Dose: 1,200 mg Documented by: Sodium Chloride () 250 mls @ 15 mls/hr IV .[id number] PRN PRN Reason: Additional IVPB Infusion Ipratropium [place] (Ipratropium [place] 0.06% Nasal [place]) 1 spray NASAL BID [facility] Last Admin: 12/20/20 08:43 Dose: 1 spray Documented by: Levothyroxine Sodium (Levothyroxine 25 Mcg Tablet) 25 mcg PO DAILY [facility] Last Admin: 12/20/20 08:40 Dose: 25 mcg Documented by: Loperamide HCl (Loperamide 2 Mg Capsule) 2 mg PO Q2H PRN PRN PRN Reason: Diarrhea Last Admin: 12/20/20 08:40 Dose: 2 mg Documented by: Magnesium Hydroxide (Magnesium Hydroxide 30 Ml Udc) 30 ml PO DAILY PRN PRN PRN Reason: Constipation Melatonin (Melatonin 3 Mg Tablet) 3 mg PO QHS PRN PRN PRN Reason: INSOMNIA Metoprolol Tartrate (Metoprolol Tartrate 50 Mg Tablet) 50 mg PO BID [facility] Last Admin: 12/20/20 08:41 Dose: 50 mg Documented by: Miscellaneous Information (Inhaler, Assist Devices 1 Each Spacer) 1 each INHALATION Q4H.RT [facility] Ondansetron HCl (Ondansetron 4 Mg/2 Ml Vial) 4 mg IV Q8H PRN PRN PRN Reason: NAUSEA/VOMITING Oxycodone HCl (Oxycodone 5 Mg Tablet) 5 mg PO Q4H PRN PRN PRN Reason: Pain Score 4-5 Oxycodone HCl (Oxycodone 5 Mg Tablet) 10 mg PO Q4H PRN PRN PRN Reason: Pain Score 6-10 Potassium Chloride (Potassium Chloride 20 Meq Tablet) 20 meq PO DAILY [facility] Last Admin: 12/20/20 08:40 Dose: 20 meq Documented by: Promethazine HCl (Promethazine 25 Mg/Ml Syringe) 25 mg IM Q6H PRN PRN PRN Reason: Breakthrough nausea/vomiting Sodium Chloride (0.9% Saline Lock 10 Ml Syringe) 10 - 40 ml IV UD PRN PRN Reason: SALINE FLUSH STROKE Vital Signs/Narrative: Vital Signs Pulse Ox Pulse Ox Pulse Ox 12/20/20 15:17 97 95 12/20/20 15:14 95 Medical Necessity - Tobacco Use Smoking Status: Former smoker Assessment/Plan All Active Problems (Last Reviewed 12/19/20 @ 13:[address] Andres Good MD) Vertigo (Resolved) Pneumonia due to 2019-nCoV (Acute) History of hysterectomy (Resolved) History of cholecystectomy (Resolved) Near syncope (Resolved) LULY (acute kidney injury) (Acute) Acute diarrhea (Resolved) H/O Dunbar's palsy (Resolved) High anion gap metabolic acidosis (Resolved) Hx of cervical cancer (Resolved) Hypokalemia (Resolved) Hyponatremia (Resolved) Urinary tract infection (Resolved) 1. Acute COVID-19 pneumonia -Afebrile without a leukocytosis -Legionella and strep urine antigens are negative -Continue with Decadron and remdesivir -Appreciate ID assistance -With elevation in her D-dimer, she will need to be discharged Eliquis 2.5 mg p.o. twice daily 2. HTN/HLD -Blood pressure stable -Continue with Norvasc and metoprolol 3. Hypothyroidism -Stable -Continue with Synthroid 4. CKD 4 -Baseline GFR stable -She will need to follow-up with her supervisor coin machine as an outpatient 5. Mild intermittent asthma -Not in exacerbation -Inhalers as needed DVT: Lovenox Inpatient E&M: 72447 Subs Hosp L2
[2020-12-20] MEDS: 0.9% Saline Lock 10 ML Syringe IV (18:03)
[2020-12-20] MEDS: Acetaminophen 325 MG Tablet 650 MG PO (18:10)
[2020-12-21 02:28] VITALS: BP 123/67; PULSE 74; RESP 17; TEMP 36.6; O2SAT 97
[2020-12-21 06:46] LABS: Basophil# 0.03 X10^3/uL; Basophil% 0.3 % (0-1); Hematocrit 38.8 % (37-47); Hemoglobin 12.7 g/dL (12.0-15.0); Mean Corp Hgb Conc 32.7 g/dL (32-36); Mean Corpuscular Hgb 32.5 pg (27.0-32.0); Mean Corpuscular Volume 99.2 fL (81-99); Mean Platelet Vol. 10.3 fl (6.2-12.0); Monocyte% 5.1 % (0-10); NRBC Flagged by Analyzer 0 % (0-5); Neutrophil # 9.02 X10^3/uL (2.7-7.7); Neutrophil % 76.6 % (47-70); Platelet Count 426 K/mm3 (150-450); RBC Distribution Width CV 14.6 % (11.6-14.6); RBC Distribution Width SD 53.1 fl (35.1-43.9); Red Blood Count 3.91 M/mm3 (4.2-5.4); White Blood Count 11.8 K/mm3 (4.4-11.0)
[2020-12-21 07:25] LABS: ALB/GLOB Ratio 0.4 RATIO (0.9-2.4); AST(SGOT) 21 U/L (15-37); Alanine Aminotransfer ALT/SGPT 20 U/L (13-56); Albumin, Serum 2.2 g/dL (3.2-5.0); Alkaline Phosphatase 69 U/L (45-117); Anion Gap 7 (5-15); BUN 26 mg/dL (7-18); BUN/Creat Ratio 13.5 RATIO (10-20); Calcium,Total 8.3 mg/dL (8.5-10.1); Chloride 115 mmol/L (98-107); Creatinine, Serum 1.93 mg/dL (0.55-1.02); EST Glomerular Filtration Rate 27 mL/min (>60); Est Glom Filt Rate - Afr Amer 33 mL/min (>60); Estimated Creatinine Clearance 28.14 ml/min; Globulin 5.3 g/dL (2.2-4.2); Glucose 102 mg/dL (74-106); Potassium 3.7 mmol/L (3.5-5.1); Protein, Total 7.5 g/dL (6.4-8.2); Sodium Level 141 mmol/L (136-145)
[2020-12-21 08:13] VITALS: BP 142/82; PULSE 61; RESP 18; TEMP 36.3; O2SAT 98
[2020-12-21] MEDS: 0.9% Saline Lock 10 ML Syringe IV (08:13)
--- NOTE | 2020-12-21 08:16 | PCS.PANDOC ---
PANDEMIC DOCUMENTATION INITIATED: Date: 10/25/2020 Time:
[2020-12-21] MEDS: Loperamide 2 MG Capsule PO (08:26)
[2020-12-21] MEDS: guaiFENesin 1,200 MG Tablet 1200 MG PO (08:27)
[2020-12-21] MEDS: amLODIPine 2.5 MG Tablet PO (08:27)
[2020-12-21] MEDS: dexAMETHasone 4 MG Tablet 6 MG PO (08:29)
[2020-12-21] MEDS: Ipratropium Bromide 0.06% NASAL SPRAY 1 SPRAY NASAL (08:29)
[2020-12-21 08:30] VITALS: PULSE 60
[2020-12-21] MEDS: Metoprolol Tartrate 50 MG Tablet PO (08:30)
[2020-12-21] MEDS: Enoxaparin 30 MG/0.3 ML Syringe SC (08:30)
[2020-12-21] MEDS: Levothyroxine 25 MCG TABLET PO (08:31)
[2020-12-21 09:55] VITALS: PULSE 64
--- NOTE | 2020-12-21 09:58 | PCM.DC ---
- Discharge Diagnoses Current Active Problems: Current Active and Chronic Problems (Last Reviewed 12/19/20 @ 13:[address] Andres Good MD) Hypothyroid (Chronic) Pneumonia due to 2019-nCoV (Acute) Status post placement of implantable loop recorder (Chronic ~03/29/20) Chronic renal failure, stage 4 (severe) (Chronic) Essential hypertension (Chronic) LULY (acute kidney injury) (Acute) Bilateral hydronephrosis (Chronic) worsening. Hyperlipidemia (Chronic) Mild intermittent asthma (Chronic) You will use the following diet at home:: Cardiac Your food should be the consistency of: Regular Your liquids should be the consistency of: Regular/Thin Discharge Activity: Return to Normal Activity Call your doctor if you observe: Fever of 101 or Higher, Shortness of breath, Dizziness, Fainting spells, Swelling in the ankles, Chest pain, Increased palpitations (irregular heartbeat) Allergies/Adverse Reactions: Allergies pravastatin Allergy (Verified 12/19/20 11:12) Chest tightness procaine [From Novocain] Allergy (Verified 12/19/20 11:12) NEEDS FOLLOW-UP Pt doesn't know sulfamethoxazole [From Bactrim] Allergy (Verified 12/19/20 11:12) Shortness of breath trimethoprim [From Bactrim] Allergy (Verified 12/19/20 11:12) Shortness of breath clindamycin Adverse Reaction (Verified 12/19/20 11:12) unsure of reaction She thinks Levaquin or Clindamycin causes trouble breathing & swelling of feet levofloxacin [From Levaquin] Adverse Reaction (Verified 12/19/20 11:12) UNSURE OF REACTION Pt thinks Levaquin or Clindamycin cause difficulty breathing & swelling of feet methylprednisolone Adverse Reaction (Verified 12/19/20 11:12) Pain in joints novacaine Allergy (Uncoded 12/19/20 11:12) Unknown Medications to take at Discharge albuterol sulfate 90 mcg/actuation aerosol inhaler 2 puff INHALATION Q6H PRN 07/25/18 Metoprolol Tartrate [Lopressor (beta dustin)] 50 mg PO BID 01/27/19 Levothyroxine [Synthroid] 25 mcg PO DAILY 01/09/20 Ipratropium [place] 1 spray INHALATION BID 09/01/20 Potassium Chloride [Klor-Con M20] 20 meq PO DAILY 09/01/20 Amlodipine [Norvasc] 2.5 mg PO DAILY 09/23/20 Dexamethasone [Decadron] 2 mg PO DAILY #21 tab 12/21/20 The following prescriptions were given: Dexamethasone [Decadron] 2 mg PO DAILY #21 tab Transmission Status: Pending to [facility] Primary Care Physician: Gerardo García Chi, MD [Primary Care Provider] - Please follow up with your Primary Care Physician in: 3-5 days Test Results: Test results from this visit will be discussed in further detail at your follow-up appointment, if applicable.
--- NOTE | 2020-12-21 11:15 | DS.PCM_ITS ---
Discharge Date and Diagnosis - Problem List Patient Problems: Active and Suspected Problems (Last Reviewed 12/19/20 @ 13:[address] Andres Good MD) Pneumonia due to 2019-nCoV (Acute) LULY (acute kidney injury) (Acute) Date of Admission: 12/19/20 Date of Discharge: 12/21/20 - Primary Discharge Diagnosis Acute Problems: Active Problems (Last Reviewed 12/19/20 @ 13:[address] Andres Good MD) Pneumonia due to 2019-nCoV (Acute) LULY (acute kidney injury) (Acute) - Secondary Discharge Diagnosis Chronic Problems: Chronic Problems (Last Reviewed 12/19/20 @ 13:[address] Andres Good MD) Hypothyroid (Chronic) Status post placement of implantable loop recorder (Chronic ~03/29/20) Chronic renal failure, stage 4 (severe) (Chronic) Essential hypertension (Chronic) Bilateral hydronephrosis (Chronic) worsening. Hyperlipidemia (Chronic) Mild intermittent asthma (Chronic) Hospital Course and Treatment Imaging Results: Clinical Impression(s) from Imaging Studies Chest X-Ray 12/19/20 11:18 IMPRESSION: Patchy right-sided pneumonia. Electronically Signed: Umer Ayon MD at 12:42 EST Tel , Service support , Consults: ID Operations: None Procedures: None Summary of Care Provided: Per HPI: The patient is a 70 year old F diagnosed with COVID-19 8 days prior to current admission who presented with shortness of breath. Patient reports increasing fatigue, diarrhea as well as shortness of breath which has been worsening with minimal activity. Presented to the emergency department as a result. Patient studies obtained demonstrated right-sided pneumonia. Patient admitted to the cohort floor for subsequent management. Hospital Course: 1. Acute COVID-19 pneumonia with an elevated B-bktci-62-year-old female presented with dyspnea on exertion as well as diarrhea. She tested positive for Covid and her symptoms had started about 8 days prior to admission. D-dimer was elevated however she was not tachycardic or hypoxic therefore a PE diagnosis was extremely unlikely and a CTA was not obtained. However given her elevated D- dimer and she will be discharged on Eliquis 2.5 mg p.o. twice daily for 2 weeks. Also she will complete 10 days of Decadron. She was given a dose of remdesivir while here in the hospital and she continues to feel fine and would like to go home today. She did have an ambulatory pulse ox which demonstrated she did not require any home O2. I discussed with her the plan for discharge today and she expressed understanding of the risk benefits of going home and would like to go home today. 2. Hypertension, hyperlipidemia, hypothyroidism, CKD 4, mild intermittent asthma are all chronic medical conditions which complicate her care. Her home medications were continued where appropriate Patient Problems: Active and Suspected Problems (Last Reviewed 12/19/20 @ 13:[address] Andres Good MD) Pneumonia due to 2019-nCoV (Acute) LULY (acute kidney injury) (Acute) - Physical Exam Vitals/I&O's: Vital Signs Temp Pulse Resp BP Pulse Ox 97.4 F L 64 18 142/82 H 98 12/21/20 08:13 12/21/20 09:55 12/21/20 08:13 12/21/20 08:13 12/21/20 08:13 Oxygen Flow Rate (L/min) 1 Oxygen Delivery Method Room Air Weight: 159 lb 9.835 oz Body Mass Index (BMI) 24.2 Finger Stick Blood Glucose 92 Intake and Output for Last 24 Hours 12/19/20 12/20/20 12/21/20 23:59 23:59 23:59 Intake Total 305 / 305 4264.5 / 4264.5 1220 / 1220 Balance 305 / 305 4264.5 / 4264.5 1220 / 1220 General: Alert, Oriented x3, Cooperative, No apparent distress HEENT: Atraumatic, PERRLA, EOMI, Normocephalic Oral: Moist Mucosa Neck: Supple, No JVD Lungs: Clear to auscultation, Normal air movement, No rhonchi, No wheeze, No rales, Diminished Cardiovascular: Regular rate, Regular Rhythm, Normal S1, Normal S2, No murmurs Abdomen: Soft, Non Tender, Non-Distended, No Hepato-splenomegaly Extremities: No edema, Capillary Refill Less than 3 Seconds Skin: No rashes, No breakdown Neurological: Neuro grossly intact, Sensory exam intact to light touch and pain Psych/Mental Status: Normal Affect, Appropriate Microbiology Past 72 Hours 12/19/20 19:55 Sputum, Expectorated/Coughed Gram Stain - Final 12/19/20 19:55 Sputum, Expectorated/Coughed Respiratory Culture - Preliminary Appears to be normal respiratory lynda. Further studies to follow. 12/19/20 14:51 Blood Culture (Wb) - Right Wrist Blood Culture - Preliminary No growth in 48 hours. 12/19/20 12:36 Blood Culture (Wb) - Anticubital Right Blood Culture - Preliminary No growth in 48 hours. 12/20/20 02:00 Urine, Clean Catch Legionella Antigen - Final 12/20/20 02:00 Urine, Clean Catch Streptococcus pneumoniae Antigen (M - Final Laboratory Results 12/21/20 06:40: WBC 11.8 H, RBC 3.91 L, Hgb 12.7, Hct 38.8, MCV 99.2 H, MCH 32.5 H, MCHC 32.7, RDW Std Deviation 53.1 H, RDW Coeff of [place] 14.6, Plt Count 426, MPV 10.3, Immature Gran % (Auto) 1.000 H, Neut % (Auto) 76.6 H, Lymph % (Auto) 17.0 L, [place] % (Auto) 5.1, Eos % (Auto) 0.0, Baso % (Auto) 0.3, Absolute Neuts (auto) 9.0 H, Absolute Lymphs (auto) 2.00, Nucleated RBC % 0 12/21/20 06:40: Sodium 141, Potassium 3.7, Chloride 115 H, Carbon Dioxide 19.0 L , Anion Gap 7, BUN 26 H, Creatinine 1.93 H, Estim Creat Clear Calc 28.14, Est GFR (MDRD) Af Amer 33 L, Est GFR (MDRD) Non-Af 27 L, BUN/Creatinine Ratio 13.5, Glucose 102, Calcium 8.3 L, Total Bilirubin 0.40, AST 21, ALT 20, Alkaline Phosphatase 69, Total Protein 7.5, Albumin 2.2 L, Globulin 5.3 H, Albumin/Globulin Ratio 0.4 L Current Medications Acetaminophen (Acetaminophen 325 Mg Tablet) 650 mg PO Q6H PRN PRN PRN Reason: Pain Score 1-10/Temp > 100.7 F Last Admin: 12/20/20 18:10 Dose: 650 mg Documented by: Al Hydroxide/Mg Hydroxide (Mag Hydrox/Al Hydrox/Simeth 30 Ml Udc) 30 ml PO Q6H PRN PRN PRN Reason: Gastric Burning Albuterol Sulfate (Albuterol Sulfate Hfa 6.7 Gm Inhaler (200 Puffs)) 2 puff IH Q4H PRN PRN PRN Reason: SOB &/OR WHEEZING Last Admin: 12/19/20 19:45 Dose: 2 puff Documented by: Amlodipine Besylate (Amlodipine 2.5 Mg Tablet) 2.5 mg PO DAILY [facility] Last Admin: 12/21/20 08:27 Dose: 2.5 mg Documented by: Dexamethasone (Dexamethasone 4 Mg Tablet) 6 mg PO DAILY [facility] Stop: 12/28/20 10:01 Last Admin: 12/21/20 08:29 Dose: 6 mg Documented by: Enoxaparin Sodium (Enoxaparin 30 Mg/0.3 Ml Syringe) 30 mg SC BID [facility] Last Admin: 12/21/20 08:30 Dose: 30 mg Documented by: Guaifenesin (Guaifenesin 10 Ml Udc (200mg/10ml)) 20 ml PO Q4H PRN PRN PRN Reason: COUGH Guaifenesin (Guaifenesin 1,200 Mg Tablet) 1,200 mg PO BID [facility] Last Admin: 12/21/20 08:27 Dose: 1,200 mg Documented by: Sodium Chloride () 250 mls @ 15 mls/hr IV .[id number] PRN PRN Reason: Additional IVPB Infusion Last Infusion: 12/21/20 10:13 Dose: 15 mls/hr Documented by: Ipratropium [place] (Ipratropium [place] 0.06% Nasal [place]) 1 spray NASAL BID [facility] Last Admin: 12/21/20 08:29 Dose: 1 spray Documented by: Levothyroxine Sodium (Levothyroxine 25 Mcg Tablet) 25 mcg PO DAILY [facility] Last Admin: 12/21/20 08:31 Dose: 25 mcg Documented by: Loperamide HCl (Loperamide 2 Mg Capsule) 2 mg PO Q2H PRN PRN PRN Reason: Diarrhea Last Admin: 12/21/20 08:26 Dose: 2 mg Documented by: Magnesium Hydroxide (Magnesium Hydroxide 30 Ml Udc) 30 ml PO DAILY PRN PRN PRN Reason: Constipation Melatonin (Melatonin 3 Mg Tablet) 3 mg PO QHS PRN PRN PRN Reason: INSOMNIA Metoprolol Tartrate (Metoprolol Tartrate 50 Mg Tablet) 50 mg PO BID [facility] Last Admin: 12/21/20 08:30 Dose: 50 mg Documented by: Miscellaneous Information (Inhaler, Assist Devices 1 Each Spacer) 1 each INHALATION Q4H.RT [facility] Ondansetron HCl (Ondansetron 4 Mg/2 Ml Vial) 4 mg IV Q8H PRN PRN PRN Reason: NAUSEA/VOMITING Oxycodone HCl (Oxycodone 5 Mg Tablet) 5 mg PO Q4H PRN PRN PRN Reason: Pain Score 4-5 Oxycodone HCl (Oxycodone 5 Mg Tablet) 10 mg PO Q4H PRN PRN PRN Reason: Pain Score 6-10 Potassium Chloride (Potassium Chloride 20 Meq Tablet) 20 meq PO DAILY [facility] Last Admin: 12/21/20 08:29 Dose: 20 meq Documented by: Promethazine HCl (Promethazine 25 Mg/Ml Syringe) 25 mg IM Q6H PRN PRN PRN Reason: Breakthrough nausea/vomiting Sodium Chloride (0.9% Saline Lock 10 Ml Syringe) 10 - 40 ml IV UD PRN PRN Reason: SALINE FLUSH Last Admin: 12/21/20 08:13 Dose: 10 ml Documented by: Discharge Activity: Return to Normal Activity Call your doctor if you observe: Fever of 101 or Higher, Shortness of breath, Dizziness, Fainting spells, Swelling in the ankles, Chest pain, Increased palpitations (irregular heartbeat) Home Medications: Medications to take at Discharge albuterol sulfate 90 mcg/actuation aerosol inhaler 2 puff INHALATION Q6H PRN 07/25/18 Metoprolol Tartrate [Lopressor (beta dustin)] 50 mg PO BID 01/27/19 Levothyroxine [Synthroid] 25 mcg PO DAILY 01/09/20 Ipratropium [place] 1 spray INHALATION BID 09/01/20 Potassium Chloride [Klor-Con M20] 20 meq PO DAILY 09/01/20 Amlodipine [Norvasc] 2.5 mg PO DAILY 09/23/20 Dexamethasone [Decadron] 2 mg PO DAILY #21 tab 12/21/20 Following Prescriptions Were Given to Patient: Dexamethasone [Decadron] 2 mg PO DAILY #21 tab Transmission Status: Received by [facility] Primary Care Physician: Gerardo García Chi, MD [Primary Care Provider] - Please follow up with your Primary Care Physician in: 3-5 days Disposition: Home Minutes spent on discharge:: 35 Patient Condition:: Stable Medical Necessity - Tobacco Use Smoking Status: Former smoker Meaningful Use Info Meaningful Use Diagnoses (Choose all that apply): None applicable Inpatient E&M: [id number] Disch Hosp
[2020-12-21 11:54] VITALS: BP 127/77; PULSE 59; RESP 18; TEMP 36.5; O2SAT 97
--- NOTE | 2020-12-21 12:05 | CASEMGMT ---
ANISH CM Note: [facility] [facility] card [facility]. Cost of medication monthly will be $21.00. Sarah LIMA RN ACM
--- NOTE | 2020-12-23 16:14 | CASEMGMT ---
Addendum entered and electronically signed by Andreia Harp RN 12/23/20 16:20: Pt states she has not called Dr. García's office to schedule her follow-up appointment but stated she planned to call his office tomorrow. States she already had an appointment scheduled for the that she plans to keep. Tonya Harp RN CM Original Note: ANISH KIRKPATRICK Discharge Follow-up Phone Call: YAHIR: Yanique Strata: 3 Call Date: 12/23/20 Discharge Date: 12/21/20 Time of Call: 1610 Admitting Diagnosis: COVID pneumonia Discharge follow-up call placed to pt. Pt states she has been doing fine since discharge. Denies any difficulty with breathing. States she obtained her prescriptions and denied any questions related to her medications. Pt states she is staying home and has family and friends dropping off any items that she needs. Pt denies any questions or concerns and repeatedly stated we are doing fine. Tonya Harp RN CM
== END 2020-12-21 13:12 | disposition home or self-care (01) | DRG 177 ==
LOC: ED 13:23 → MS2 13:41
PROVIDERS: Admitting Provider Internal Medicine; Emergency Provider Emergency Medicine; PCP Family Medicine Geriatric Medicine; Visit Provider Family Medicine
DX: U07.1 COVID-19 (principal); J12.82 Pneumonia due to coronavirus disease 2019; N18.4 Chronic kidney disease, stage 4 (severe); E78.5 Hyperlipidemia, unspecified; J45.20 Mild intermittent asthma, uncomplicated; I12.9 Hypertensive chronic kidney disease with stage 1 through stage 4 chronic kidney disease, or unspecified chronic kidney disease; E03.9 Hypothyroidism, unspecified; Z87.891 Personal history of nicotine dependence; R09.02 Hypoxemia
CPT/HCPCS: 36415; 71045; 80048; 80053; 80076; 83605; 83735; 84100; 84484; 85025; 85379; 87040; 87070; 87205; 87449; 93005; 97802; 99251; 99285; J7030; J7050; A4216; G0463; J0696

== ENCOUNTER → 2021-01-10 13:44 | Outpatient (CLI) | payer MEDICARE, SELFPAY ==
[2020-12-19 15:36] VITALS: BMI 24.2
[2021-01-10 16:59] LABS: Absolute Lymphocyte Count 5.37 X10^3/uL (0.83-4.51); Absolute Neutrophil Count 5.6 X10^3/uL (2.0-7.7); Basophil# 0.04 X10^3/uL; Basophil% 0.3 % (0-1); Eosinophil# 0.29 X10^3/uL; Eosinophils% 2.4 % (0-5); Hematocrit 40.3 % (37-47); Hemoglobin 12.4 g/dL (12.0-15.0); Lymphocyte # 5.37 X10^3/ul (4.0); Lymphocyte % 45.3 % (19-41); Mean Corp Hgb Conc 30.8 g/dL (32-36); Mean Corpuscular Hgb 30.8 pg (27.0-32.0); Mean Corpuscular Volume 100.2 fL (81-99); Mean Platelet Vol. 10.6 fl (6.2-12.0); Monocyte# 0.57 X10^3/uL; Monocyte% 4.8 % (0-10); NRBC Flagged by Analyzer 0 % (0-5); Neutrophil # 5.55 X10^3/uL (2.7-7.7); Neutrophil % 46.9 % (47-70); POSITIVE DIFFERENTIAL YES; POSITIVE MORPHOLOGY YES; Platelet Count 365 K/mm3 (150-450); RBC Distribution Width CV 13.9 % (11.6-14.6); RBC Distribution Width SD 51.7 fl (35.1-43.9); Red Blood Count 4.02 M/mm3 (4.2-5.4); White Blood Count 11.9 K/mm3 (4.4-11.0)
[2021-01-10 17:04] LABS: Differential Indicated SCAN CRITERIA MET
[2021-01-10 17:32] LABS: Differential Comment SCANNED
[2021-01-10 17:35] LABS: Vitamin D,25 Hydroxy 19.5 ng/mL
[2021-01-10 17:52] LABS: ALB/GLOB Ratio 0.4 RATIO (0.9-2.4); AST(SGOT) 16 U/L (15-37); Alanine Aminotransfer ALT/SGPT 18 U/L (13-56); Albumin, Serum 2.2 g/dL (3.2-5.0); Alkaline Phosphatase 114 U/L (45-117); Anion Gap 10 (5-15); BUN 14 mg/dL (7-18); Calcium,Total 8.6 mg/dL (8.5-10.1); Chloride 106 mmol/L (98-107); Cholesterol 179 mg/dL (200); Creatinine, Serum 2.01 mg/dL (0.55-1.02); EST Glomerular Filtration Rate 26 mL/min (>60); Est Glom Filt Rate - Afr Amer 32 mL/min (>60); Globulin 5.8 g/dL (2.2-4.2); Glucose 80 mg/dL (74-106); High Density Lipoprotein 34 mg/dL; Potassium 4.3 mmol/L (3.5-5.1); Sodium Level 137 mmol/L (136-145); Thyroid Stim Hormone (TSH) 2.24 uIU/mL (0.358-3.74); Triglycerides 121 mg/dL; Uric Acid 4.9 mg/dL (2.6-6.0); Very Low Density Lipoprotein 24 mg/dL (5-40)
== END ==
PROVIDERS: PCP Family Medicine Geriatric Medicine; Visit Provider Family Medicine Geriatric Medicine
DX: E55.9 Vitamin D deficiency, unspecified (principal); E78.5 Hyperlipidemia, unspecified; I10 Essential (primary) hypertension; M10.9 Gout, unspecified; N39.0 Urinary tract infection, site not specified
CPT/HCPCS: 36415; 80053; 80061; 82306; 84443; 84550; 85025; 87077; 87086; 87088; 87186

== ENCOUNTER → 2021-02-08 14:36 | Outpatient (CLI) | payer MEDICARE, SELFPAY ==
[2020-12-19 15:36] VITALS: BMI 24.2
== END ==
PROVIDERS: PCP Family Medicine Geriatric Medicine; Referring Provider Urology; Visit Provider Urology
DX: N39.0 Urinary tract infection, site not specified (principal); R35.0 Frequency of micturition
CPT/HCPCS: 87086; 87088

== ENCOUNTER → 2021-02-14 16:21 | Outpatient (CLI) | payer MEDICARE, SELFPAY ==
[2021-02-14 13:22] VITALS: BMI 24.3
== END ==
PROVIDERS: PCP Family Medicine Geriatric Medicine; Referring Provider Surgery; Visit Provider Surgery
DX: L02.31 Cutaneous abscess of buttock (principal)
CPT/HCPCS: 87070; 87075; 87077; 87186; 87205

== ENCOUNTER → 2021-02-16 10:54 | Outpatient (CLI) | payer MEDICARE, SELFPAY ==
[2021-02-14 13:22] VITALS: BMI 24.3
[2021-02-16 11:52] LABS: Hematocrit 42.3 % (37-47); Hemoglobin 13.3 g/dL (12.0-15.0); Mean Corp Hgb Conc 31.4 g/dL (32-36); Mean Corpuscular Hgb 31.4 pg (27.0-32.0); Mean Platelet Vol. 10.4 fl (6.2-12.0); Platelet Count 442 K/mm3 (150-450); RBC Distribution Width SD 51.4 fl (35.1-43.9); Red Blood Count 4.23 M/mm3 (4.2-5.4); White Blood Count 13.6 K/mm3 (4.4-11.0)
[2021-02-16 12:29] LABS: PTHIN 112.6 pg/mL (18.4-80.1)
[2021-02-16 12:34] LABS: Albumin, Serum 2.6 g/dL (3.2-5.0); BUN 20 mg/dL (7-18); BUN/Creat Ratio 10.3 RATIO (10-20); Calcium,Total 8.6 mg/dL (8.5-10.1); Chloride 106 mmol/L (98-107); Creatinine, Serum 1.94 mg/dL (0.55-1.02); EST Glomerular Filtration Rate 27 mL/min (>60); Est Glom Filt Rate - Afr Amer 33 mL/min (>60); Glucose 90 mg/dL (74-106); Phosphorus 4.2 mg/dL (2.5-4.9); Potassium 3.8 mmol/L (3.5-5.1); Sodium Level 137 mmol/L (136-145)
== END ==
PROVIDERS: PCP Family Medicine Geriatric Medicine; Referring Provider Internal Medicine Nephrology; Visit Provider Internal Medicine Nephrology
DX: N18.4 Chronic kidney disease, stage 4 (severe) (principal)
CPT/HCPCS: 36415; 80069; 83970; 85027

== ENCOUNTER 2021-02-23 11:53 | Day surgery (SDC) | payer MEDICARE, SELFPAY ==
[2020-12-19 15:36] VITALS: BMI 24.2
[2021-02-14 13:22] VITALS: BMI 24.3
[2021-02-23] VITALS (7 sets, daily range): BP systolic 91–126; BP diastolic 66–70; PULSE 62–79; RESP 16; TEMP 36.2–36.6; O2SAT 96–99; BMI 25.2
--- NOTE | 2021-02-23 07:42 | PCM.HP.STD ---
Problem List (1) Bilateral hydronephrosis Status: Chronic Comment: worsening. History of Present Illness Date of Admission: 02/23/21 Chief Complaint: Bilateral hydronephrosis as a result of radiation with obstruction The patient is a 70 year old female who had pelvic radiation long time ago she developed bilateral distal ureteral obstruction managed with bilateral stents she was initially to have her stent change but was positive for the coronavirus so we delayed this until she is got over the viral infection now organ to proceed with cystoscopy and bilateral stent changes. Past Medical History Past Medical History (Chronic Problems): Chronic Problems (Last Reviewed 02/14/21 @ 13:22 by Kiya Chao) Hypothyroid (Chronic) Status post placement of implantable loop recorder (Chronic ~03/29/20) Chronic renal failure, stage 4 (severe) (Chronic) Essential hypertension (Chronic) Bilateral hydronephrosis (Chronic) worsening. Hyperlipidemia (Chronic) Mild intermittent asthma (Chronic) Medical History: Medical History (Last Reviewed 02/23/21 @ 07:[address] Joshua Strickland MD) Abscess of buttock, right (Acute) L02.31 Status post placement of implantable loop recorder (Chronic) Onset Date: ~03/29/20 Z95.818 Chronic renal failure, stage 4 (severe) (Chronic) N18.4 Near syncope (Resolved) R55 Essential hypertension (Chronic) I10 LULY (acute kidney injury) (Acute) N17.9 Bilateral hydronephrosis (Chronic) N13.30 worsening. 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 Cervical cancer (Inactive) C53.9 Problem with dialysis access (Inactive) T82.898A Sepsis (Inactive) A41.9 Allergies pravastatin Allergy (Verified 02/21/21 12:15) Chest tightness procaine [From Novocain] Allergy (Verified 02/21/21 12:15) NEEDS FOLLOW-UP Pt doesn't know sulfamethoxazole [From Bactrim] Allergy (Verified 02/21/21 12:15) Shortness of breath trimethoprim [From Bactrim] Allergy (Verified 02/21/21 12:15) Shortness of breath clindamycin Adverse Reaction (Verified 02/21/21 12:15) unsure of reaction She thinks Levaquin or Clindamycin causes trouble breathing & swelling of feet levofloxacin [From Levaquin] Adverse Reaction (Verified 02/21/21 12:15) UNSURE OF REACTION Pt thinks Levaquin or Clindamycin cause difficulty breathing & swelling of feet methylprednisolone Adverse Reaction (Verified 02/21/21 12:15) Pain in joints novacaine Allergy (Uncoded 02/21/21 12:15) Unknown Home Medications: Ambulatory Orders Medication Instructions Recorded albuterol sulfate 90 mcg/actuation 2 puff INHALATION Q6H PRN 07/25/18 aerosol inhaler Metoprolol Tartrate [Lopressor 50 mg PO BID 01/27/19 (beta dustin)] Levothyroxine [Synthroid] 25 mcg PO DAILY 01/09/20 Ipratropium [place] 1 spray INHALATION BID 09/01/20 Potassium Chloride [Klor-Con M20] 20 meq PO DAILY 09/01/20 Amlodipine [Norvasc] 2.5 mg PO DAILY 09/23/20 Cephalexin [Keflex] 500 mg PO Q12 02/21/21 Surgical History: Surgical History (Last Reviewed 02/14/21 @ 13:22 by Kiya Chao) History of hysterectomy (Resolved) Z90.710 History of cholecystectomy (Resolved) Z90.49 History of loop recorder Z98.890 History of cardiac catheterization (Inactive) Onset Date: ~01/08/18 Z98.890 normal coronaries History of excision of mass (Inactive) Z98.890 history of radium implant (Inactive) Surgical History: hysterectomy, - - Cholecystectomy; and Mass removed from kidney, rt ureteral stent plaement in 2016, Loop recorder implantation 03/2020 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 Smoking Status: Former smoker Tobacco Use: Non-smoker - *Family History Paternal Family History: Family History (Last Reviewed 02/14/21 @ 13:22 by Kiya Chao) Father CAD (coronary artery disease) History of coronary artery bypass surgery History Items: Heart Disease, Hypertension Maternal Family History: Family History (Last Reviewed 02/14/21 @ 13:22 by Kiya C Siders) Father CAD (coronary artery disease) History of coronary artery bypass surgery History Items: Cancer Review of Systems Constitutional: Denies: Chills, Fever, Weight Change HEENT: Denies: Head Aches, Sinus Congestion, Sinus Drainage Cardiovascular: Denies: Chest Pain, Palpitations Respiratory: Denies: Cough, Shortness of breath at rest, Sputum production Gastrointestinal: Denies: Abdominal Pain, Nausea, Vomiting Genitourinary: Denies: Dysuria Musculoskeletal: Denies: Joint Pain, Joint Tenderness Skin: Denies: Rash, Wounds Neurological: Denies: Numbness, Tingling, Focal weakness Psychiatric: Denies: Anxiety, Depression, Homicidal Ideations, Suicidal Ideations Hematologic/ Lymphatic: Denies: Easy Bruising, Easy Bleeding VTE Information - Inpt Only VTE Present on Admission: No VTE Mechan Device Prophylaxis: SCD's - Physical Exam Vitals/I&O's: Weight: 80.739 kg Body Mass Index (BMI) 24.3 Finger Stick Blood Glucose 92 General: Alert, Oriented x3, Cooperative HEENT: Atraumatic, PERRLA, EOMI, Normocephalic Neck: Supple, No JVD, Negative Carotid Bruits Lungs: Clear to auscultation, Normal air movement Cardiovascular: Regular rate, No murmurs Abdomen: Bowel Sounds Present, Soft, Non Tender Extremities: No edema, Capillary Refill Less than 3 Seconds Skin: No rashes, No breakdown Musculoskeletal: No Tenderness to Palpation of Joints or Extremities Neurological: Cranial nerves II-XII grossly intact Psych/Mental Status: Normal Affect, Appropriate Current Medications Cefazolin Sodium 2 gm/ Sodium (Chloride) 110 mls @ 150 mls/hr IV PREOP ONE Stop: 02/23/21 13:48 Assessment/Plan All Active Problems (Last Reviewed 02/14/21 @ 13:22 by Kiya Chao) Vertigo (Resolved) Pneumonia due to 2019-nCoV (Acute) Abscess of buttock, right (Acute) History of hysterectomy (Resolved) History of cholecystectomy (Resolved) Near syncope (Resolved) LULY (acute kidney injury) (Acute) Acute diarrhea (Resolved) H/O Dunbar's palsy (Resolved) High anion gap metabolic acidosis (Resolved) Hx of cervical cancer (Resolved) Hypokalemia (Resolved) Hyponatremia (Resolved) Urinary tract infection (Resolved) Plan to proceed with cystoscopy and bilateral stent change.
--- NOTE | 2021-02-23 07:51 | DCINST_ITS ---
Discharge Diet: Light diet - advance as tolerated Discharge Activity: Return to Normal Activity Allergies/Adverse Reactions: Allergies pravastatin Allergy (Verified 02/21/21 12:15) Chest tightness procaine [From Novocain] Allergy (Verified 02/21/21 12:15) NEEDS FOLLOW-UP Pt doesn't know sulfamethoxazole [From Bactrim] Allergy (Verified 02/21/21 12:15) Shortness of breath trimethoprim [From Bactrim] Allergy (Verified 02/21/21 12:15) Shortness of breath clindamycin Adverse Reaction (Verified 02/21/21 12:15) unsure of reaction She thinks Levaquin or Clindamycin causes trouble breathing & swelling of feet levofloxacin [From Levaquin] Adverse Reaction (Verified 02/21/21 12:15) UNSURE OF REACTION Pt thinks Levaquin or Clindamycin cause difficulty breathing & swelling of feet methylprednisolone Adverse Reaction (Verified 02/21/21 12:15) Pain in joints novacaine Allergy (Uncoded 02/21/21 12:15) Unknown Medications to take at Discharge albuterol sulfate 90 mcg/actuation aerosol inhaler 2 puff INHALATION Q6H PRN 07/25/18 Metoprolol Tartrate [Lopressor (beta dustin)] 50 mg PO BID 01/27/19 Levothyroxine [Synthroid] 25 mcg PO DAILY 01/09/20 Ipratropium [place] 1 spray INHALATION BID 09/01/20 Potassium Chloride [Klor-Con M20] 20 meq PO DAILY 09/01/20 Amlodipine [Norvasc] 2.5 mg PO DAILY 09/23/20 Cephalexin [Keflex] 500 mg PO Q12 02/21/21 Primary Care Physician: Gerardo García Chi, MD [Primary Care Provider] - Test Results: Test results from this visit will be discussed in further detail at your follow- up appointment, if applicable. Please Follow Up With: Joshua Strickland MD When: in 2 weeks, please call to make an appointment.
[2021-02-23] MEDS: Lactated Ringers 1,000 ML 100 ML IV (12:53)
[2021-02-23] MEDS: Cefazolin 2 GM in 0.9% Normal Saline 100 ML IV (15:10)
[2021-02-23] MEDS: Lidocaine Jelly 2% 20 ML Syringe (URO-JET) 20 APPLIC (15:20)
--- NOTE | 2021-02-23 15:33 | OP.PCM_ITS ---
Problem List (1) Bilateral hydronephrosis Status: Chronic Comment: worsening. Report of Operation Date of Procedure: 02/23/21 Pre-Operative Diagnosis: Bilateral ureteral obstruction Post-Operative Diagnosis: Same Surgery/Procedure Performed:: Cystoscopy bilateral retrograde pyelograms bilateral stent changes Description of Surgical Findings:: Patient was taken back to the operating room after induction of general anesthesia, the patient was placed in dorsolithotomy position. The urethra and genitals were prepped and draped in usual sterile fashion. Using a 21 [place] Island[place] rigid cystourethroscope the entire length of the urethra was normal then went into the bladder. Identified the trigone the left and right ureteral orifice. I then cannulated the Left orifice and advanced a wire up into the kidney. I then backloaded a 5 [place] open ended catheter over the wire and injected contrast to delineate the anatomy. After the retrograde was performed I then used fluoroscopic images and guidance to advanced a wire up into the kidney and over the 0.038 glidewire I advanced a 6 [place] by 26 cm double pigtail stent. I then pulled the 0.038 Glidewire off and the stent coiled in the kidney bladder good position. The bladder was then drained. We confirmed the position of the stent by fluoroscopy.. Using a 21 [place] rigid cystourethroscope the entire length of the urethra was normal then went into the bladder. Identified the trigone the left and right ureteral orifice. I then cannulated the Right orifice and advanced a wire up into the kidney. I then backloaded a 5 [place] open ended catheter over the wire and injected contrast to delineate the anatomy. After the retrograde was performed I then used fluoroscopic images and guidance to advanced a wire up into the kidney and over the 0.038 glidewire I advanced a 6 [place] by 26 cm double pigtail stent. I then pulled the 0.038 Glidewire off and the stent coiled in the kidney bladder good position. The bladder was then drained. We confirmed the position of the stent by fluoroscopy. Patient anesthetic was reversed and was taken back to the PACU in good condition. Type of Anesthesia:: General Drains: stents - Admit VTE Documentation VTE Present on Admission: No VTE Mechan Device Prophylaxis: SCD's
== END 2021-02-23 16:54 | disposition home or self-care (01) ==
LOC: SDC 11:54 → AC 11:54
PROVIDERS: PCP Family Medicine Geriatric Medicine; Referring Provider Urology; Visit Provider Urology
PROC: (CPT 52332; principal; 2021-02-23 14:10)
DX: N13.1 Hydronephrosis with ureteral stricture, not elsewhere classified (principal); Z86.16 Personal history of COVID-19; I12.9 Hypertensive chronic kidney disease with stage 1 through stage 4 chronic kidney disease, or unspecified chronic kidney disease; N18.4 Chronic kidney disease, stage 4 (severe); E03.9 Hypothyroidism, unspecified; E78.5 Hyperlipidemia, unspecified; Z79.899 Other long term (current) drug therapy; J45.20 Mild intermittent asthma, uncomplicated; Z87.891 Personal history of nicotine dependence
CPT/HCPCS: 00910; 52332; 76000; J7120; C1769; C2617; J2405

== ENCOUNTER → 2021-03-21 14:31 | Outpatient (CLI) | payer MEDICARE, SELFPAY ==
[2021-02-23 12:46] VITALS: BMI 25.2
== END ==
PROVIDERS: PCP Family Medicine Geriatric Medicine; Visit Provider Family Medicine Geriatric Medicine
DX: R68.83 Chills (without fever) (principal)
CPT/HCPCS: 87635; C9803; U0002

== ENCOUNTER → 2021-03-24 15:30 | Outpatient (CLI) | payer MEDICARE, SELFPAY ==
[2021-02-23 12:46] VITALS: BMI 25.2
== END ==
LOC: POLAB3 15:31 → LABSPEC 15:33
PROVIDERS: PCP Family Medicine Geriatric Medicine; Visit Provider Family Medicine Geriatric Medicine
DX: N39.0 Urinary tract infection, site not specified (principal)
CPT/HCPCS: 87086; 87088

== ENCOUNTER → 2021-05-11 14:14 | Outpatient (CLI) | payer MEDICARE, SELFPAY ==
[2021-02-23 12:46] VITALS: BMI 25.2
[2021-05-11 16:45] LABS: Absolute Lymphocyte Count 7.59 X10^3/uL (0.83-4.51); Absolute Neutrophil Count 6.6 X10^3/uL (2.0-7.7); Basophil# 0.07 X10^3/uL; Basophil% 0.5 % (0-1); Eosinophil# 0.15 X10^3/uL; Hematocrit 46.7 % (37-47); Hemoglobin 14.8 g/dL (12.0-15.0); Lymphocyte # 7.59 X10^3/ul (0.83-4.51); Lymphocyte % 49.8 % (19-41); Mean Corp Hgb Conc 31.7 g/dL (32-36); Mean Corpuscular Hgb 31.2 pg (27.0-32.0); Mean Corpuscular Volume 98.5 fL (81-99); Mean Platelet Vol. 10.6 fl (6.2-12.0); Monocyte# 0.76 X10^3/uL; NRBC Flagged by Analyzer 0 % (0-5); Neutrophil % 43.2 % (47-70); POSITIVE DIFFERENTIAL YES; POSITIVE MORPHOLOGY YES; Platelet Count 390 K/mm3 (150-450); RBC Distribution Width CV 14.5 % (11.6-14.6); RBC Distribution Width SD 53.3 fl (35.1-43.9); Red Blood Count 4.74 M/mm3 (4.2-5.4); White Blood Count 15.3 K/mm3 (4.4-11.0)
[2021-05-11 16:52] LABS: Differential Indicated SCAN CRITERIA MET
[2021-05-11 17:08] LABS: Reactive Lymphocyte 2+
[2021-05-11 17:09] LABS: Differential Comment SCANNED
[2021-05-11 17:12] LABS: ALB/GLOB Ratio 0.6 RATIO (0.9-2.4); AST(SGOT) 10 U/L (15-37); Alanine Aminotransfer ALT/SGPT 14 U/L (13-56); Albumin, Serum 2.8 g/dL (3.2-5.0); Alkaline Phosphatase 131 U/L (45-117); Anion Gap 7 (5-15); BUN 15 mg/dL (7-18); BUN/Creat Ratio 7.6 RATIO (10-20); Calcium,Total 8.2 mg/dL (8.5-10.1); Chloride 107 mmol/L (98-107); Creatinine, Serum 1.98 mg/dL (0.55-1.02); EST Glomerular Filtration Rate 27 mL/min (>60); Est Glom Filt Rate - Afr Amer 32 mL/min (>60); Glucose 86 mg/dL (74-106); Potassium 3.3 mmol/L (3.5-5.1); Protein, Total 7.8 g/dL (6.4-8.2); Sodium Level 140 mmol/L (136-145); Thyroid Stim Hormone (TSH) 1.67 uIU/mL (0.358-3.74)
[2021-05-12 08:51] LABS: Vitamin D,25 Hydroxy 15.8 ng/mL
== END ==
PROVIDERS: PCP Family Medicine Geriatric Medicine; Visit Provider Family Medicine Geriatric Medicine
DX: E55.9 Vitamin D deficiency, unspecified (principal); I10 Essential (primary) hypertension
CPT/HCPCS: 36415; 80053; 82306; 84443; 85025

== ENCOUNTER → 2021-05-20 15:17 | Outpatient (CLI) | payer MEDICARE, SELFPAY ==
[2021-02-23 12:46] VITALS: BMI 25.2
--- NOTE | 2021-03-09 13:15 | NURSING ---
Pt states having current sinus symptoms. Pt states nose is congested with chest heaviness. Pt encouraged to contact PCP and notify Dr. Richter's office
--- NOTE | 2021-05-20 09:25 | EKG12_ITS ---
Test Reason : PREOP Blood Pressure : / mmHG Vent. Rate : 066 BPM Atrial Rate : 066 BPM P-R Int : 166 ms QRS Dur : 086 ms QT Int : 398 ms P-R-T Axes : 059 002 060 degrees QTc Int : 417 ms Poor data quality, interpretation may be adversely affected Normal sinus rhythm Normal ECG Confirmed by TARAH CHRISTIAN, DANTE ([id number]), medical editor GABY GREENE ([id number]) on 05/25/2021 2:26:13 PM Referred By: Ky Richter Confirmed By:DANTE RASCON MD
[2021-05-20 10:09] LABS: Hematocrit 46.1 % (37-47); Hemoglobin 14.5 g/dL (12.0-15.0); Mean Corp Hgb Conc 31.5 g/dL (32-36); Mean Corpuscular Hgb 31.6 pg (27.0-32.0); Mean Corpuscular Volume 100.4 fL (81-99); Mean Platelet Vol. 9.9 fl (6.2-12.0); Platelet Count 350 K/mm3 (150-450); RBC Distribution Width CV 14.6 % (11.6-14.6); RBC Distribution Width SD 54.9 fl (35.1-43.9); Red Blood Count 4.59 M/mm3 (4.2-5.4); White Blood Count 14.7 K/mm3 (4.4-11.0)
[2021-05-20 10:51] LABS: Anion Gap 6 (5-15); BUN 14 mg/dL (7-18); BUN/Creat Ratio 7.3 RATIO (10-20); Calcium,Total 8.8 mg/dL (8.5-10.1); Chloride 106 mmol/L (98-107); Creatinine, Serum 1.92 mg/dL (0.55-1.02); EST Glomerular Filtration Rate 28 mL/min (>60); Est Glom Filt Rate - Afr Amer 33 mL/min (>60); Glucose 91 mg/dL (74-106); Potassium 4.5 mmol/L (3.5-5.1); Sodium Level 138 mmol/L (136-145)
== END ==
LOC: PAT 05-24 15:17
PROVIDERS: PCP Family Medicine Geriatric Medicine; Referring Provider Surgery; Visit Provider Surgery
DX: Z01.818 Encounter for other preprocedural examination (principal)
CPT/HCPCS: 36415; 80048; 85027; 93005

== ENCOUNTER → 2021-05-30 15:13 | Outpatient (CLI) | payer MEDICARE, SELFPAY ==
[2021-05-30 14:11] VITALS: BMI 26.4
[2021-06-02 15:43] LABS: HPV Reflexed? NOT INDICATED
== END ==
PROVIDERS: PCP Family Medicine Geriatric Medicine; Visit Provider Nurse Practitioner Women's Health
DX: Z85.41 Personal history of malignant neoplasm of cervix uteri (principal); Z12.4 Encounter for screening for malignant neoplasm of cervix
CPT/HCPCS: 88175; G0145

== ENCOUNTER → 2021-06-02 09:32 | Outpatient (CLI) | payer MEDICARE, SELFPAY ==
[2021-02-23 12:46] VITALS: BMI 25.2
[2021-05-31 15:25] VITALS: BMI 27.1
[2021-06-02 10:09] LABS: 24 Hour Urine Protein 510.3 mg/24HR (<150 MG/24HR); 24HR. UA Prot. Total Volume 675 mL; Urine Protein (24 Hour) 75.6 mg/dL (<11.9)
[2021-06-02 10:40] LABS: PTHIN 111.1 pg/mL (18.4-80.1)
[2021-06-02 10:42] LABS: Albumin, Serum 2.9 g/dL (3.2-5.0); BUN 19 mg/dL (7-18); BUN/Creat Ratio 9.5 RATIO (10-20); Calcium,Total 8.7 mg/dL (8.5-10.1); Chloride 108 mmol/L (98-107); EST Glomerular Filtration Rate 26 mL/min (>60); Est Glom Filt Rate - Afr Amer 32 mL/min (>60); Glucose 89 mg/dL (74-106); Phosphorus 3.7 mg/dL (2.5-4.9); Sodium Level 140 mmol/L (136-145)
[2021-06-02 10:43] LABS: Vitamin D,25 Hydroxy 13.2 ng/mL
[2021-06-02 11:06] LABS: Creat.Clear Total Volume 675 mL; Creatinine Clearance 12 ml/min (100-200); Creatinine Urine 50.6 mg/dL (NO RANGE EST.); EST Glomerular Filtration Rate 26 mL/min (>60); Est Glom Filt Rate - Afr Amer 32 mL/min (>60)
== END ==
LOC: LABSPEC 09:34 → LAB 09:40
PROVIDERS: PCP Family Medicine Geriatric Medicine; Referring Provider Internal Medicine Nephrology; Visit Provider Internal Medicine Nephrology
DX: N18.4 Chronic kidney disease, stage 4 (severe) (principal); E55.9 Vitamin D deficiency, unspecified
CPT/HCPCS: 36415; 80069; 81050; 82306; 82575; 83970; 84156

== ENCOUNTER → 2021-06-30 10:36 | Outpatient (CLI) | payer MEDICARE, SELFPAY ==
[2021-02-23 12:46] VITALS: BMI 25.2
[2021-05-31 15:25] VITALS: BMI 27.1
[2021-06-30 13:10] LABS: Anion Gap 9 (5-15); BUN 20 mg/dL (7-18); BUN/Creat Ratio 9.3 RATIO (10-20); Calcium,Total 8.6 mg/dL (8.5-10.1); Chloride 107 mmol/L (98-107); Creatinine, Serum 2.14 mg/dL (0.55-1.02); EST Glomerular Filtration Rate 24 mL/min (>60); Est Glom Filt Rate - Afr Amer 29 mL/min (>60); Glucose 88 mg/dL (74-106); Sodium Level 138 mmol/L (136-145)
[2021-06-30 15:55] LABS: M R Staph aureus DNA By PCR POSITIVE (Negative); Staph aureus DNA By PCR POSITIVE (Negative)
[2021-06-30 15:56] LABS: Probe Check PASS
== END ==
LOC: POLAB3 10:37 → LAB.FUTURE 10:38 → POLAB3 12:11
PROVIDERS: PCP Family Medicine Geriatric Medicine; Visit Provider Family Medicine Geriatric Medicine
DX: L02.91 Cutaneous abscess, unspecified (principal); E55.9 Vitamin D deficiency, unspecified; N18.4 Chronic kidney disease, stage 4 (severe)
CPT/HCPCS: 36415; 80048; 87070; 87077; 87186; 87205; 87640

== ENCOUNTER 2021-07-06 08:09 | Day surgery (SDC) | payer MEDICARE, SELFPAY ==
[2021-05-31 15:25] VITALS: BMI 27.1
[2021-07-05 10:58] VITALS: BMI 26.6
[2021-07-06] VITALS (7 sets, daily range): BP systolic 91–132; BP diastolic 51–80; PULSE 59–83; RESP 14–16; TEMP 36.3–36.7; O2SAT 96–100; BMI 26.6
[2021-07-06] MEDS: Lactated Ringers 1,000 ML 100 ML IV (08:15)
[2021-07-06] MEDS: Cefazolin 2 GM in 0.9% Normal Saline 100 ML IV (10:55)
--- NOTE | 2021-07-06 11:23 | PCM.HP.STD ---
HPI - General HPI Narrative TODD HERRERA, is a 70 F who presents stent changes for chronic bilateral obstruction 2nd to remote h/o radiation. [facility] Medical History Abscess of buttock, right Acute diarrhea LULY (acute kidney injury) Asthma Dunbar's palsy Bilateral hydronephrosis Bladder disease Blood disorder Bruising Cancer Cardiology follow-up encounter Cervical cancer Chronic renal failure, stage 4 (severe) Easy bruising Essential hypertension Former smoker Gout High anion gap metabolic acidosis History of cervical cancer History of COVID-19 History of irregular heartbeat History of renal disease Hx of cataract Hx of echocardiogram Hx of vertigo Hyperlipidemia Hypertension Hypokalemia Hyponatremia Leg cramps Lymphocytosis Mild intermittent asthma Near syncope Open wound Problem with dialysis access Sepsis Status post placement of implantable loop recorder (~03/29/20) Thyroid disease Wears dentures Home Medications albuterol sulfate 90 mcg/actuation aerosol inhaler 2 puff INHALATION Q6H PRN 07/25/18 [History Last Taken 09/23/20] metoprolol tartrate 50 mg PO BID 01/27/19 [History Last Taken 07/06/21] levothyroxine 25 mcg PO DAILY 01/09/20 [History Last Taken 07/06/21] potassium chloride 20 meq PO BID 09/01/20 [History Last Taken 09/23/20] amlodipine 2.5 mg PO DAILY 09/23/20 [History Last Taken 07/06/21] fluticasone propionate [Flonase Allergy Relief] 1 spray INTRANASAL BID 05/19/21 [History Last Taken Unknown] cholecalciferol (vitamin D3) 1,250 mcg (50,000 unit) capsule 1,250 mcg PO QMONTH #1 cap 06/02/21 [Rx Last Taken Unknown] ciprofloxacin HCl [Cipro] 500 mg PO BID #10 tab 07/06/21 [Rx Last Taken Unknown] Allergy/AdvReac Type Severity Reaction Status Date / Time pravastatin Allergy Severe Chest Verified 07/06/21 08:36 tightness procaine [From Novocain] Allergy Severe NEEDS Verified 07/06/21 08:36 FOLLOW-UP sulfamethoxazole Allergy Severe Shortness Verified 07/06/21 08:36 [From Bactrim] of breath trimethoprim [From Bactrim] Allergy Severe Shortness Verified 07/06/21 08:36 of breath clindamycin AdvReac Severe unsure of Verified 07/06/21 08:36 reaction methylprednisolone AdvReac Severe Pain in Verified 07/06/21 08:36 joints levofloxacin [From Levaquin] AdvReac UNSURE OF Verified 07/06/21 08:36 REACTION novacaine Allergy Unknown Uncoded 07/06/21 08:36 Family History Father , 32 yrs old CAD (coronary artery disease) History of coronary artery bypass surgery Surgical History History of cardiac catheterization (~01/08/18) History of cardiac catheterization History of cholecystectomy History of excision of mass History of hysterectomy History of loop recorder history of radium implant Hx of cystoscopy Social History household members: spouse and children number of children: 6 current occupational status: retired history of recent travel: No Smoking Status: Former smoker second hand exposure: No alcohol intake: never substance use type: does not use what type of physical activity do you participate in: walking saurabh/roman catholic: Non-Spiritism/Independent seatbelt use: always do you feel safe at home: Yes additional social history: - Fernando Vital Signs Vital Signs Vital Signs: 07/06/21 08:37 Temperature 98.1 F Temperature Source Temporal Pulse Rate 63 Respiratory Rate 16 Respiratory Pattern Normal Blood Pressure 132/80 H Blood Pressure Mean 97 Blood Pressure Source Monitor Blood Pressure Position Semi-Fowlers Blood Pressure Location Left Arm Pulse Ox 96 Oxygen Delivery Method Room Air Weight Weight: 79.3 kg Body Mass Index (BMI) 26.6 Physical Exam Const alert and oriented x3 General Appearance: cooperative HEENT normocephalic, head/scalp atraumatic, EAC's normal and TM's normal bilaterally Eyes PERRL and EOMs intact bilaterally Pupil: sluggish Neck no lymphadenopathy, supple and no JVD General: trachea midline Lymph Lymphatic: no lymphadenopathy noted, lymphedema and lymphadenopathy Resp normal respiratory effort, normal air movement and clear to auscultation bilaterally Cardio regular rate, regular rhythm and peripheral pulses 2+ throughout GI soft to palpation, non-tender and non-distended Extremity normal capillary refill and no clubbing, cyanosis or edema General Extremity: no tenderness to palpation of joints or extremities Skin no rashes or lesions noted General Skin Exam: turgor normal Lesions: no lesions Rashes: no rashes Neuro CN's II-XII intact bilaterally Speech: speech normal Motor Exam: strength 5/5 throughout; Negative for general weakness Psych thought process normal, cooperative and affect normal Appearance: appropriate Assessment & Plan Assessment/Plan (1) Bilateral hydronephrosis:
--- NOTE | 2021-07-06 11:24 | OP.PCM_ITS ---
Report of Operation Date of Procedure: 07/06/21 Pre-Operative Diagnosis: Bilateral ureteral obstruction Post-Operative Diagnosis: Same Surgery/Procedure Performed:: cystoscopy with bilateral stent change bilateral retrograde pyelograms interpretation fluoroscopic images Description of Surgical Findings:: Patient was taken back to the operating room after induction of general anesthesia, the patient was placed in dorsolithotomy position. The urethra and genitals were prepped and draped in usual sterile fashion. Using a 21 [place] rigid cystourethroscope the entire length of the urethra was normal then went into the bladder. Identified the trigone the left and right ureteral orifice. I then cannulated the Left orifice and advanced a wire up into the kidney. I then backloaded a 5 [place] open ended catheter over the wire and injected contrast to delineate the anatomy. After the retrograde was performed I then used fluoroscopic images and guidance to advanced a wire up into the kidney and over the 0.038 glidewire I advanced a 6 [place] by 26 cm double pigtail stent. I then pulled the 0.038 Glidewire off and the stent coiled in the kidney bladder good position. The bladder was then drained. We confirmed the position of the stent by fluoroscopy. Identified the trigone the left and right ureteral orifice. I then cannulated the Right orifice and advanced a wire up into the kidney. I then backloaded a 5 Indian open ended catheter over the wire and injected contrast to delineate the anatomy. After the retrograde was performed I then used fluoroscopic images and guidance to advanced a wire up into the kidney and over the 0.038 glidewire I advanced a 6 [place] by 26 cm double pigtail stent. I then pulled the 0.038 Glidewire off and the stent coiled in the kidney bladder good position. The bladder was then drained. We confirmed the position of the stent by fluoroscopy. Patient anesthetic was reversed and was taken back to the PACU in good condition. Surgeon: john Drains: stent bilateral Admit VTE Documentation VTE Present on Admission: No VTE Mechan Device Prophylaxis: SCD's
--- NOTE | 2021-07-06 11:24 | PCM.DC ---
Discharge Instructions Diet Discharge Diet: No restrictions Activity Discharge Activity: Return to Normal Activity and May Not Drive (while taking narcotic pain medications.) Dressing / Incision Call your doctor if you observe: Fever of 101 or Higher Follow Up Care Please Follow Up With: Joshua Strickland MD When: Call [phone] for an appointment Test Results: Test results from this visit will be discussed in further detail at your follow-up appointment, if applicable. Discharge Plan Admission Primary Reason for Your Visit: stent changes Attending Provider: Joshua Strickland Primary Care Provider: Gerardo García Chi Discharge Orders/Prescriptions Prescriptions: New ciprofloxacin HCl [Cipro] 500 mg tablet 500 mg PO BID Qty: 10 RF: 0 Continued albuterol sulfate [Ventolin HFA] 90 mcg/actuation HFA aerosol inhaler 2 puff INHALATION Q6H PRN (Reason: Sob &/Or Wheezing) RF: 0 metoprolol tartrate 50 MG tablet 50 mg PO BID RF: 0 levothyroxine 25 MCG tablet 25 mcg PO DAILY RF: 0 potassium chloride 20 MEQ tablet,ER particles/crystals 20 meq PO BID RF: 0 amlodipine 2.5 MG tablet 2.5 mg PO DAILY RF: 0 fluticasone propionate [Flonase Allergy Relief] 50 mcg/actuation [place],Suspension 1 spray INTRANASAL BID RF: 0 cholecalciferol (vitamin D3) 1,250 mcg (50,000 unit) capsule 1,250 mcg PO QMONTH Qty: 1 RF: 0 Referrals / Follow Up: Joshua Strickland MD [STAFF PHYSICIAN] - Gerardo García Chi, MD [Primary Care Provider] - Disposition Disposition (needs filled in before D/C Order can be placed): Home, Self Care
== END 2021-07-06 13:00 | disposition home or self-care (01) ==
LOC: SDC 08:10 → AC 08:11
PROVIDERS: PCP Family Medicine Geriatric Medicine; Referring Provider Urology; Visit Provider Urology
PROC: (CPT 52332; principal; 2021-07-06 10:25)
DX: N13.1 Hydronephrosis with ureteral stricture, not elsewhere classified (principal); N18.4 Chronic kidney disease, stage 4 (severe); I12.9 Hypertensive chronic kidney disease with stage 1 through stage 4 chronic kidney disease, or unspecified chronic kidney disease; Z87.891 Personal history of nicotine dependence; Z86.16 Personal history of COVID-19; E78.5 Hyperlipidemia, unspecified; J45.20 Mild intermittent asthma, uncomplicated; E07.9 Disorder of thyroid, unspecified
CPT/HCPCS: 52332; 76000; J7120; C1769; C2617; J2405

== ENCOUNTER → 2021-07-26 14:10 | Outpatient (CLI) | payer MEDICARE, SELFPAY ==
[2021-07-26 14:36] LABS: Absolute Lymphocyte Count 6.01 X10^3/uL (0.83-4.51); Absolute Neutrophil Count 6.4 X10^3/uL (2.0-7.7); Basophil# 0.08 X10^3/uL; Basophil% 0.6 % (0-1); Eosinophil# 0.19 X10^3/uL; Eosinophils% 1.4 % (0-5); Hematocrit 43.9 % (37-47); Hemoglobin 14.1 g/dL (12.0-15.0); Lymphocyte # 6.01 X10^3/ul (0.83-4.51); Lymphocyte % 44.1 % (19-41); Mean Corp Hgb Conc 32.1 g/dL (32-36); Mean Corpuscular Hgb 31.9 pg (27.0-32.0); Mean Corpuscular Volume 99.3 fL (81-99); Mean Platelet Vol. 10.2 fl (6.2-12.0); Monocyte# 0.87 X10^3/uL; Monocyte% 6.4 % (0-10); NRBC Flagged by Analyzer 0 % (0-5); Neutrophil # 6.41 X10^3/uL (2.7-7.7); POSITIVE DIFFERENTIAL YES; Platelet Count 415 K/mm3 (150-450); RBC Distribution Width CV 13.1 % (11.6-14.6); RBC Distribution Width SD 47.8 fl (35.1-43.9); Red Blood Count 4.42 M/mm3 (4.2-5.4); White Blood Count 13.6 K/mm3 (4.4-11.0)
[2021-07-26 14:38] LABS: Differential Indicated SCAN CRITERIA MET
[2021-07-26 14:59] LABS: Anion Gap 5 (5-15); BUN 24 mg/dL (7-18); BUN/Creat Ratio 9.2 RATIO (10-20); Chloride 105 mmol/L (98-107); EST Glomerular Filtration Rate 19 mL/min (>60); Est Glom Filt Rate - Afr Amer 24 mL/min (>60); Glucose 100 mg/dL (74-106); Potassium 4.3 mmol/L (3.5-5.1); Sodium Level 136 mmol/L (136-145)
[2021-07-26 15:15] LABS: Platelet Estimate ADEQUATE (ADEQ); Red Cell Morphology NORM C+C NORMAL (NORM C&C)
== END ==
LOC: LAB 14:12
PROVIDERS: PCP Family Medicine Geriatric Medicine; Referring Provider Family Medicine Geriatric Medicine; Visit Provider Family Medicine Geriatric Medicine
DX: N39.0 Urinary tract infection, site not specified (principal); R53.83 Other fatigue
CPT/HCPCS: 36415; 80048; 85025; 87086; 87088

== ENCOUNTER → 2021-07-28 09:00 | Outpatient (CLI) | payer MEDICARE, SELFPAY | PROVIDERS: PCP Family Medicine Geriatric Medicine; Referring Provider Family Medicine Geriatric Medicine; Visit Provider Family Medicine Geriatric Medicine | DX: R06.89 Other abnormalities of breathing (principal) | CPT/HCPCS: 87635; 87804; 87807; C9803; U0005; U0003 ==

== ENCOUNTER → 2021-08-09 13:26 | Outpatient (CLI) | payer MEDICARE, SELFPAY ==
[2021-08-09 16:26] LABS: Absolute Lymphocyte Count 8.59 X10^3/uL (0.83-4.51); Basophil# 0.12 X10^3/uL; Basophil% 0.7 % (0-1); Eosinophil# 0.33 X10^3/uL; Eosinophils% 1.9 % (0-5); Hematocrit 44.7 % (37-47); Hemoglobin 14.3 g/dL (12.0-15.0); Lymphocyte # 8.59 X10^3/ul (0.83-4.51); Lymphocyte % 49.5 % (19-41); Mean Corpuscular Hgb 31.9 pg (27.0-32.0); Mean Corpuscular Volume 99.8 fL (81-99); Monocyte# 1.17 X10^3/uL; Monocyte% 6.7 % (0-10); NRBC Flagged by Analyzer 0 % (0-5); Neutrophil # 7.04 X10^3/uL (2.7-7.7); Neutrophil % 40.6 % (47-70); POSITIVE DIFFERENTIAL YES; Platelet Count 445 K/mm3 (150-450); RBC Distribution Width CV 13.1 % (11.6-14.6); RBC Distribution Width SD 48.2 fl (35.1-43.9); Red Blood Count 4.48 M/mm3 (4.2-5.4); White Blood Count 17.4 K/mm3 (4.4-11.0)
[2021-08-09 16:28] LABS: Differential Indicated SCAN CRITERIA MET
[2021-08-09 16:44] LABS: Vitamin D,25 Hydroxy 35.9 ng/mL
[2021-08-09 16:50] LABS: Differential Comment SCANNED
[2021-08-09 16:52] LABS: ALB/GLOB Ratio 0.4 RATIO (0.9-2.4); AST(SGOT) 17 U/L (15-37); Alanine Aminotransfer ALT/SGPT 16 U/L (13-56); Albumin, Serum 2.6 g/dL (3.2-5.0); Alkaline Phosphatase 114 U/L (45-117); Anion Gap 9 (5-15); BUN 20 mg/dL (7-18); BUN/Creat Ratio 7.8 RATIO (10-20); Calcium,Total 8.9 mg/dL (8.5-10.1); Chloride 103 mmol/L (98-107); Cholesterol 164 mg/dL (200); Creatinine, Serum 2.56 mg/dL (0.55-1.02); EST Glomerular Filtration Rate 20 mL/min (>60); Est Glom Filt Rate - Afr Amer 24 mL/min (>60); Globulin 6.9 g/dL (2.2-4.2); Glucose 94 mg/dL (74-106); High Density Lipoprotein 36 mg/dL; Potassium 4.1 mmol/L (3.5-5.1); Protein, Total 9.5 g/dL (6.4-8.2); Sodium Level 135 mmol/L (136-145); Thyroid Stim Hormone (TSH) 1.62 uIU/mL (0.358-3.74); Triglycerides 130 mg/dL; Very Low Density Lipoprotein 26 mg/dL (5-40)
== END ==
LOC: POLAB3 13:28
PROVIDERS: PCP Family Medicine Geriatric Medicine; Visit Provider Family Medicine Geriatric Medicine
DX: E55.9 Vitamin D deficiency, unspecified (principal); E78.5 Hyperlipidemia, unspecified; I10 Essential (primary) hypertension
CPT/HCPCS: 36415; 80053; 80061; 82306; 84443; 85025

== ENCOUNTER → 2021-08-11 14:05 | Outpatient (CLI) | payer MEDICARE, SELFPAY | PROVIDERS: PCP Family Medicine Geriatric Medicine; Referring Provider Family Medicine Geriatric Medicine; Visit Provider Family Medicine Geriatric Medicine | DX: R68.83 Chills (without fever) (principal) | CPT/HCPCS: 87635; 87804; 87807; C9803; U0005; U0003 ==

== ENCOUNTER → 2021-08-30 11:55 | Outpatient (CLI) | payer MEDICARE, SELFPAY ==
[2021-05-31 15:25] VITALS: BMI 27.1
[2021-08-30 12:21] LABS: Hematocrit 43.4 % (37-47); Mean Corp Hgb Conc 32.3 g/dL (32-36); Mean Corpuscular Hgb 31.6 pg (27.0-32.0); Mean Platelet Vol. 10.7 fl (6.2-12.0); Platelet Count 288 K/mm3 (150-450); RBC Distribution Width SD 50.4 fl (35.1-43.9); Red Blood Count 4.43 M/mm3 (4.2-5.4)
[2021-08-30 12:41] LABS: Albumin, Serum 2.5 g/dL (3.2-5.0); BUN 20 mg/dL (7-18); BUN/Creat Ratio 9.7 RATIO (10-20); Calcium,Total 8.3 mg/dL (8.5-10.1); Chloride 109 mmol/L (98-107); Creatinine, Serum 2.07 mg/dL (0.55-1.02); EST Glomerular Filtration Rate 25 mL/min (>60); Est Glom Filt Rate - Afr Amer 31 mL/min (>60); Glucose 101 mg/dL (74-106); Sodium Level 141 mmol/L (136-145)
[2021-08-30 12:58] LABS: PTHIN 124.9 pg/mL (18.4-80.1)
== END ==
LOC: LAB 11:56
PROVIDERS: PCP Family Medicine Geriatric Medicine; Referring Provider Internal Medicine Nephrology; Visit Provider Internal Medicine Nephrology
DX: N18.4 Chronic kidney disease, stage 4 (severe) (principal)
CPT/HCPCS: 36415; 80069; 83970; 85027

== ENCOUNTER 2021-09-21 06:54 | Day surgery (SDC) | payer MEDICARE, SELFPAY ==
--- NOTE | 2021-09-19 11:58 | EKG12_ITS ---
Test Reason : PREOP Blood Pressure : / mmHG Vent. Rate : 059 BPM Atrial Rate : 059 BPM P-R Int : 158 ms QRS Dur : 080 ms QT Int : 398 ms P-R-T Axes : 039 002 060 degrees QTc Int : 394 ms Sinus bradycardia Otherwise normal ECG Confirmed by DEON CHIRSTIAN, RICHARD ([id number]), image editor RADHA PHILLIPS ([id number]) on 09/20/2021 9:52:16 AM Referred By: Ky Richter Confirmed By:RICHARD CHAVARRIA MD
[2021-09-19 13:26] LABS: Hematocrit 43.3 % (37-47); Mean Corp Hgb Conc 32.3 g/dL (32-36); Mean Corpuscular Volume 98.9 fL (81-99); Mean Platelet Vol. 10.6 fl (6.2-12.0); Platelet Count 339 K/mm3 (150-450); RBC Distribution Width CV 14.3 % (11.6-14.6); RBC Distribution Width SD 52.2 fl (35.1-43.9); Red Blood Count 4.38 M/mm3 (4.2-5.4); White Blood Count 14.1 K/mm3 (4.4-11.0)
[2021-09-19 14:04] LABS: Anion Gap 3 (5-15); BUN 22 mg/dL (7-18); Calcium,Total 8.6 mg/dL (8.5-10.1); Chloride 111 mmol/L (98-107); Creatinine, Serum 2.21 mg/dL (0.55-1.02); EST Glomerular Filtration Rate 23 mL/min (>60); Est Glom Filt Rate - Afr Amer 28 mL/min (>60); Glucose 88 mg/dL (74-106); Potassium 3.8 mmol/L (3.5-5.1); Sodium Level 140 mmol/L (136-145)
--- NOTE | 2021-09-21 07:14 | DCINST_ITS ---
Discharge Instructions Procedure Fistula Diet Discharge Diet: Renal Diet Activity Discharge Activity: May Not Drive (for 2-3 days or while taking narcotic pain medications.), May Shower and May Take a Tub Bath (in 5 days.) Lifting Restrictions: 5 pounds Keep extremity elevated above heart level: - (Keep arm elevated above the heart level for 3 days.) Dressing / Incision Call your doctor if your incision/area has: Continuous Slow Oozing, Sudden Increased Bleeding (apply pressure and call your doctor.), Increased Pain/ Swelling, Increased Redness and Foul Smelling Discharge Call your doctor if you observe: Fever of 101 or Higher Suture Line Care: Avoid Pulling/Pushing and Avoid Pinching/Bending Cleanse incision/area with: Keep Dressing Clean & Dry Additional Dressing/Incision Instructions:: Change or remove dressing in one day. May protect with a gauze bandaid. Follow Up Care Please Follow Up With: Ky Richter MD When: Call [phone] to make an appointment for suture removal and follow up in 1 week. Test Results: Test results from this visit will be discussed in further detail at your follow-up appointment, if applicable. Discharge Plan Admission Attending Provider: Ky Richter Primary Care Provider: Gerardo García Chi Discharge Orders/Prescriptions Prescriptions: No Action albuterol sulfate [Ventolin HFA] 90 mcg/actuation HFA aerosol inhaler 2 puff INHALATION Q6H PRN (Reason: Sob &/Or Wheezing) RF: 0 metoprolol tartrate 50 MG tablet 50 mg PO BID RF: 0 levothyroxine 25 MCG tablet 25 mcg PO DAILY RF: 0 potassium chloride 20 MEQ tablet,ER particles/crystals 20 meq PO BID RF: 0 fluticasone propionate [Flonase Allergy Relief] 50 mcg/actuation [place],Suspension 1 spray INTRANASAL BID RF: 0 guaifenesin [Mucinex] 600 mg Tablet Extended Release 12hr 1,200 mg PO BID RF: 0 cholecalciferol (vitamin D3) 1,250 mcg (50,000 unit) capsule 1,250 mcg PO QMONTH Qty: 1 RF: 0 amlodipine 2.5 mg tablet 2.5 mg PO DAILY Qty: 90 RF: 3
--- NOTE | 2021-09-21 07:14 | PCM.HP.BLA ---
History and Physical Date of Admission: 09/21/21 Intake Visit Reasons: FISTULA PLACEMENT, VM 11/09 Chief Complaint: fistula placement Transit Department Clerk Required: No Is patient in pain?: No Allergies pravastatin Allergy (Severe, Verified 09/05/21 14:00) Chest tightness procaine [From Novocain] Allergy (Severe, Verified 09/05/21 14:00) NEEDS FOLLOW-UP sulfamethoxazole [From Bactrim] Allergy (Severe, Verified 09/05/21 14:00) Shortness of breath trimethoprim [From Bactrim] Allergy (Severe, Verified 09/05/21 14:00) Shortness of breath clindamycin Adverse Reaction (Severe, Verified 09/05/21 14:00) unsure of reaction methylprednisolone Adverse Reaction (Severe, Verified 09/05/21 14:00) Pain in joints levofloxacin [From Levaquin] Adverse Reaction (Verified 09/05/21 14:00) UNSURE OF REACTION novacaine Allergy (Uncoded 09/05/21 14:00) Unknown Medications albuterol sulfate 90 mcg/actuation aerosol inhaler 2 puff INHALATION Q6H PRN 07/25/18 [History Confirmed 09/05/21] metoprolol tartrate 50 mg PO BID 01/27/19 [History Confirmed 09/05/21] levothyroxine 25 mcg PO DAILY 01/09/20 [History Confirmed 09/05/21] potassium chloride 20 meq PO BID 09/01/20 [History Confirmed 09/05/21] fluticasone propionate [Flonase Allergy Relief] 1 spray INTRANASAL BID 05/19/21 [History Confirmed 09/05/21] cholecalciferol (vitamin D3) 1,250 mcg (50,000 unit) capsule 1,250 mcg PO QMONTH #1 cap 06/02/21 [Rx Confirmed 09/05/21] amlodipine 2.5 mg tablet 2.5 mg PO DAILY #90 tab 08/12/21 [Rx Confirmed 09/05/21] PFSH Medical History Abscess of buttock, right Acute diarrhea LULY (acute kidney injury) Asthma Dunbar's palsy Bilateral hydronephrosis Bladder disease Blood disorder Bruising Cancer Cardiology follow-up encounter Cervical cancer Chronic renal failure, stage 4 (severe) Easy bruising Essential hypertension Former smoker Gout High anion gap metabolic acidosis History of cervical cancer History of COVID-19 History of irregular heartbeat History of renal disease Hx of cataract Hx of echocardiogram Hx of vertigo Hyperlipidemia Hypertension Hypokalemia Hyponatremia Leg cramps Lymphocytosis Mild intermittent asthma Near syncope Open wound Problem with dialysis access Sepsis Status post placement of implantable loop recorder (~03/29/20) Thyroid disease Wears dentures Surgical History History of cardiac catheterization (~01/08/18) History of cardiac catheterization History of cholecystectomy History of excision of mass History of hysterectomy History of loop recorder history of radium implant Hx of cystoscopy Family History Father , 32 yrs old CAD (coronary artery disease) History of coronary artery bypass surgery Social History household members: spouse and children number of children: 6 current occupational status: retired history of recent travel: No Smoking Status: Former smoker second hand exposure: No alcohol intake: never substance use type: does not use what type of physical activity do you participate in: walking saurabh/moravian: Non-Caodaism/Independent seatbelt use: always do you feel safe at home: Yes additional social history: - Fernando HPI HPI HPI: By Dr. Gerardo García and a written copy of my surgical consult recommendations will return to him. She is stage IV disease.TODD HERRERA, is a 71 F who presents to the office today for surgical consultation regarding arteriovenous hemodialysis fistula creation. The patient has a history of bilateral hydronephrosis and is recently as July 06, 2021 had cystoscopy with bilateral stent change per . My most recent or change of the patient was April 06 were tunneled dialysis catheters were removed at that time. We did have significant difficulty with patient complaints. At that time she was not interested in discussing fistula creation. The patient is right arm dominant. She was hospitalized at [facility] January 2021 with COVID-19. She was in the ICU. She states that her is still suffering from side effects. The patient herself has lost exercise endurance. Her vein mapping dictates back to November 09, 2020 Reason For Study: Pre-op, chronic kidney disease stage IV Right Arm Left Arm Right cephalic vein is compressible. Left cephalic vein is compressible. Right Cephalic Vein at the shoulder Left Cephalic Vein at the shoulder measures .2 x .21 cm. measures .15 x .16 cm. Right Cephalic Vein mid bicep measures .26 Left Cephalic Vein at mid bicep measures .15 x .26 cm. x .14 cm. Right Cephalic Vein above antecub Left Cephalic Vein above antecub measures .1 measures .22 x .24 cm. x .1 cm. Right Cephalic Vein below antecub Left Cephalic Vein below antecub measures .17 measures .21 x .26 cm. x .16 cm. Right Cephalic Vein in the forearm Left Cephalic Vein in the forearm measures .21 x .24 cm. measures .27 x .29 cm. Right Cephalic Vein at the wrist measures .22 Left Cephalic Vein at the wrist measures .23 x .22 cm. x .27 cm. Right basilic vein is compressible. Left basilic vein is compressible. Right Basilic Vein mid bicep measures .09 Basilic vein at bicep measures .39 x .39 cm. x .11 cm. Basilic vein above antecub measures .37 x .36 Right Basilic Vein above antecub measures .16 cm. x .16 cm. Basilic vein below antecub measures .19 x .17 Right Basilic Vein below antecub measures .1 cm. x .13 cm. Basilic vein in the forearm measures .21 Right Basilic Vein in the forearm x .22 cm. measures .17 x .17 cm. Basilic vein at the wrist measures .19 x .19 Right Basilic Vein at the wrist measures .14 cm. x .15 cm. Brachial art .28 x .30 cm. Brachial art .27 x .27 cm. Brachial art 78.1 cm/s. Brachial art 71.6 cm/s. Radial art .14 x .14 cm. Radial art .11 x .10 cm. Radial art 55.9 cm/s. Radial art 25.9 cm/s. Interpretation Summary Patent and compressible bilateral upper extremity cephalic and basilic veins is noted. Diameters measured bilaterally for cephalic veins, basilic veins, radial arteries, brachial arteries are all diminutive except for the left upper arm basilic vein. Please refer to the previous abnormal bilateral upper extremity vein mapping of July 11, 2019 Ordering Physician: Gerardo García Performed By: Marlon Vanegas RVT ? 11/09/20 [id number] Ky Richter MD ROS General General: No weight change, appetite, fatigue, colon cancer, breast cancer or weakness HEENT HEENT: No difficulty swallowing, eye injury, eye surgery, swollen glands or hoarseness Endo Endocrine: No thyroid disease, diabetes mellitus, thyroid cancer, Hair loss, heat intolerance or cold intolerance Skin Skin: No rash or changing moles Breast Breast: No left breast lump, right breast lump, nipple discharge, breast pain, abnormal mammogram, abnormal US or breast enlargement Musc Musculoskeletal: No back problems, arthritis, rheumatoid arthritis, gout or joint pain Cardio Cardiovascular: Yes murmur and high blood pressure; No pacemaker, heart disease, atrial fibrillation, heart attack, heart stent, palpitations, shortness of breat with exertion or chest pain Psych Psychiatric: No depression, anxiety or hearing voices Resp Respiratory: No shortness of breath, No sleep apnea, No cough, No COPD, Yes asthma, No emphysema and No wheezing Gastro Gastrointestinal: No abdominal pain, No nausea or vomiting, No diarrhea, No constipation, No blood in stool, No acid reflux, No hemorrhoids, No ulcers, No gallbladder problem and No black,tarry stools Herson Hematologic: No blood thinners, No blood disorders, No bleeding, No anemia and No blood clots Neuro Neurologic: No system reviewed and no additional complaints, except as documented, No as per HPI, No abnormal gait, No abnormal hearing, No abnormal movements, No abnormal speech, No behavioral changes, No burning sensations, No confusion, No convulsions, No disequilibrium, No dizziness, No localized weakness, No frequent falls, No headache(s), No lack of coordination, No loss of vision, No memory loss, No numbness, No other visual disturbances, No radicular pain, No restless legs, No sensory deficit, No syncope, No tingling, No tremor(s), No weakness and No other Exam Const General: cooperative and comfortable Nutritional Appearance: average body habitus Orientation: alert and awake [facility] Head: normal to inspection Chest Chest palpation & inspection: normal inspection of the chest Resp Effort & Inspection: normal respiratory effort Cardio Rate: regular rate Rhythm: regular rhythm GI Palpation: soft and no hepatosplenomegaly Musc Cervical Spine: normal cervical lordosis Skin General: no rashes or lesions noted Neuro General: patient alert and patient awake Extrem General: no calf tenderness Psych Appearance: grossly normal Assessment and Plan Assessment and Plan (1) Chronic renal failure, stage 4 (severe): Status: Chronic Plan - Dr. Ky Richter MD: I have again offered the patient consideration for a stage I left upper arm basilic vein to brachial artery AV fistula creation. Basilic vein appears to be in its medial position crossing the antecubital space. She is aware of technique, benefit, risk, alternatives. She is aware there are no guarantees of success. She is aware that a future stage II transposition will be required. She has had an opportunity to ask and have questions answered. We will schedule procedure at her discretion. She states that she is not on any anticoagulation. Copy: Dr. Gerardo Richter M.D., F.A.C.S. I have re-examined the patient. There are no clinical changes since date of exam. Ky Richter M.D., F.A.C.S.
[2021-09-21 07:30] VITALS: BP 128/79; PULSE 62; RESP 16; TEMP 36.3; O2SAT 100; BMI 27.2
[2021-09-21] MEDS: Heparin Injection (Vial) 5,000 UNIT/ML VIAL 5000 UNIT (10:00)
[2021-09-21] MEDS: Lidocaine 1% (30 ml sdv) 30 ML Vial (10:00)
[2021-09-21] MEDS: Bupivacaine Mpf 0.5% 30 ML VIAL (10:00)
--- NOTE | 2021-09-21 10:25 | OP.PCM_ITS ---
Problems Associated Problem List Diagnoses (1) Chronic renal failure, stage 4 (severe): Report of Operation Date of Procedure: 09/21/21 Pre-Operative Diagnosis: Stage IV chronic renal insufficiency Post-Operative Diagnosis: Same Surgery/Procedure Performed:: Stage I left upper extremity basilic vein to brachial artery arteriovenous hemodialysis fistula creation Description of Surgical Findings:: Timeout informed consent was obtained. 71-year-old female was taken to the operating room. She was placed on the table. Clean procedure no antibiotics required. The left extremity was sterilely prepped and draped. 1% lidocaine mixed 50-50 with 0.5% Marcaine was used as a local anesthetic. 6 cc was used. Ultrasound mapping of been performed. The basilic vein into the mid and more proximal left upper arm was of adequate diameter. There was branching more distally. I elected to select a branch that overlapped the brachial artery although this was rather diminutive at likely 3 mm in diameter. Local was instilled. An oblique incision was created. Sharp blunt sections used to identify the basilic vein which was dissected free. Then sharp blunt sections used to identify the brachial artery. The patient received 8000 units of heparin based upon weight. The vein was ligated distally with a Hemoclip it was then carefully irrigated and spatulated it was noted to be quite diminutive. An 11 blade was used to make an arteriotomy which was extended with Hatch scissors on the brachial artery. A end-to-side venous to arterial anastomosis was created very careful placement of 7 no suture was required. The anastomosis was meticulously achieved. Clamps were removed and good flow was achieved. That I had a very nice cobra head with excellent flow into the otherwise diminutive vein. A single repair suture of 7- 0 Prolene was used. Hemostasis intact. The subcutaneous tissues approximated up to 3-0 Vicryl. Skin edges were approximated running septic or 4-0 Monocryl. Steri-Strips Telfa tape dressings applied. Sponge and instrument and needle counts were reported the surgeon be correct. Specimens none. Drains none. Blood loss minimal. The patient was taken to the recovery area in satisfactory addition without apparent complication Ky Richter M.D., F.A.C.S. Surgeon: Ky Richter Type of Anesthesia: Local MAC Anesthesiologist: Brenda Peguero
[2021-09-21 10:31] VITALS: BP 105/73; BP 128/79; PULSE 66; RESP 16; TEMP 36.2; O2SAT 97
[2021-09-21 10:35] VITALS: BP 116/73; BP 128/79; PULSE 67; RESP 16; O2SAT 97
[2021-09-21 10:40] VITALS: BP 107/70; BP 128/79; PULSE 59; RESP 16; O2SAT 95
[2021-09-21 10:45] VITALS: BP 107/66; BP 109/81; BP 128/79; PULSE 61; PULSE 63; RESP 16; RESP 17; TEMP 36.1; O2SAT 96; O2SAT 97
[2021-09-21 12:02] VITALS: BP 128/79; BP 135/67; PULSE 52; RESP 16; TEMP 36.6; O2SAT 97
== END 2021-09-21 12:08 | disposition home or self-care (01) ==
LOC: SDC 06:55 → AC 06:55
PROVIDERS: PCP Family Medicine Geriatric Medicine; Referring Provider Surgery; Visit Provider Surgery
PROC: (CPT 36821; principal; 2021-09-21 09:05)
DX: Z49.01 Encounter for fitting and adjustment of extracorporeal dialysis catheter (principal); I12.9 Hypertensive chronic kidney disease with stage 1 through stage 4 chronic kidney disease, or unspecified chronic kidney disease; N18.4 Chronic kidney disease, stage 4 (severe); E78.5 Hyperlipidemia, unspecified; J45.20 Mild intermittent asthma, uncomplicated; E07.9 Disorder of thyroid, unspecified; Z87.891 Personal history of nicotine dependence; Z79.899 Other long term (current) drug therapy; Z79.51 Long term (current) use of inhaled steroids; Z86.16 Personal history of COVID-19; Z79.890 Hormone replacement therapy
CPT/HCPCS: 01844; 36821; 36415; 80048; 85027; 93005; J7040

== ENCOUNTER → 2021-11-01 10:11 | Outpatient (CLI) | payer MEDICARE, SELFPAY | PROVIDERS: PCP Family Medicine Geriatric Medicine; Referring Provider Family Medicine Geriatric Medicine; Visit Provider Family Medicine Geriatric Medicine | DX: R68.83 Chills (without fever) (principal) | CPT/HCPCS: 87635; C9803; U0005; U0003 ==

== ENCOUNTER → 2021-11-08 13:30 | Outpatient (CLI) | payer MEDICARE, SELFPAY ==
[2021-11-08 16:30] LABS: Absolute Lymphocyte Count 6.01 X10^3/uL (0.83-4.51); Absolute Neutrophil Count 10.1 X10^3/uL (2.0-7.7); Basophil# 0.11 X10^3/uL; Basophil% 0.6 % (0-1); Eosinophil# 0.02 X10^3/uL; Eosinophils% 0.1 % (0-5); Hematocrit 46.5 % (37-47); Hemoglobin 14.9 g/dL (12.0-15.0); Lymphocyte # 6.01 X10^3/ul (0.83-4.51); Lymphocyte % 34.5 % (19-41); Mean Corpuscular Hgb 31.4 pg (27.0-32.0); Mean Corpuscular Volume 98.1 fL (81-99); Mean Platelet Vol. 10.5 fl (6.2-12.0); Monocyte# 0.83 X10^3/uL; Monocyte% 4.8 % (0-10); NRBC Flagged by Analyzer 0 % (0-5); Neutrophil # 10.09 X10^3/uL (2.7-7.7); POSITIVE DIFFERENTIAL YES; POSITIVE MORPHOLOGY YES; Platelet Count 408 K/mm3 (150-450); RBC Distribution Width CV 14.2 % (11.6-14.6); RBC Distribution Width SD 51.4 fl (35.1-43.9); Red Blood Count 4.74 M/mm3 (4.2-5.4); White Blood Count 17.4 K/mm3 (4.4-11.0)
[2021-11-08 16:48] LABS: Vitamin D,25 Hydroxy 36.3 ng/mL
[2021-11-08 16:59] LABS: ALB/GLOB Ratio 0.5 RATIO (0.9-2.4); AST(SGOT) 16 U/L (15-37); Alanine Aminotransfer ALT/SGPT 44 U/L (13-56); Albumin, Serum 2.6 g/dL (3.2-5.0); Alkaline Phosphatase 107 U/L (45-117); Anion Gap 7 (5-15); BUN 26 mg/dL (7-18); BUN/Creat Ratio 13.6 RATIO (10-20); Calcium,Total 8.5 mg/dL (8.5-10.1); Chloride 111 mmol/L (98-107); Cholesterol 183 mg/dL (200); Creatinine, Serum 1.91 mg/dL (0.55-1.02); EST Glomerular Filtration Rate 28 mL/min (>60); Est Glom Filt Rate - Afr Amer 34 mL/min (>60); Globulin 5.5 g/dL (2.2-4.2); Glucose 92 mg/dL (74-106); High Density Lipoprotein 39 mg/dL; Potassium 3.8 mmol/L (3.5-5.1); Protein, Total 8.1 g/dL (6.4-8.2); Sodium Level 142 mmol/L (136-145); Thyroid Stim Hormone (TSH) 1.06 uIU/mL (0.358-3.74); Triglycerides 122 mg/dL; Very Low Density Lipoprotein 24 mg/dL (5-40)
[2021-11-08 17:29] LABS: Differential Indicated SCAN CRITERIA MET
[2021-11-08 17:39] LABS: Anisocytosis RARE; Macrocytosis RARE; Platelet Estimate SLT INC (ADEQ); Red Cell Morphology N CHROM NORMAL (NORM C&C)
[2021-11-08 17:40] LABS: Atypical Lymphocyte 2+ %
[2021-11-10 09:38] LABS: Pathologist Review Reviewed
== END ==
LOC: POLAB3 13:33
PROVIDERS: PCP Family Medicine Geriatric Medicine; Visit Provider Family Medicine Geriatric Medicine
DX: E55.9 Vitamin D deficiency, unspecified (principal); E78.5 Hyperlipidemia, unspecified; I10 Essential (primary) hypertension
CPT/HCPCS: 36415; 80053; 80061; 82306; 84443; 85025

== ENCOUNTER → 2021-11-10 13:39 | Outpatient (CLI) | payer MEDICARE, SELFPAY ==
--- NOTE | 2021-11-10 13:52 | CPS ---
Pt refused Covid swab and Flu swab that was ordered by Dr García. Pt says she was just tested for those within the last week
== END ==
PROVIDERS: PCP Family Medicine Geriatric Medicine; Referring Provider Family Medicine Geriatric Medicine; Visit Provider Family Medicine Geriatric Medicine
DX: R68.83 Chills (without fever) (principal)
CPT/HCPCS: C9803

== ENCOUNTER 2021-11-29 08:53 | Day surgery (SDC) | payer MEDICARE, SELFPAY ==
[2021-10-24 13:33] LABS: Hematocrit 44.2 % (37-47); Hemoglobin 14.1 g/dL (12.0-15.0); Mean Corp Hgb Conc 31.9 g/dL (32-36); Mean Corpuscular Hgb 31.5 pg (27.0-32.0); Mean Corpuscular Volume 98.7 fL (81-99); Mean Platelet Vol. 10.8 fl (6.2-12.0); Platelet Count 334 K/mm3 (150-450); RBC Distribution Width CV 14.4 % (11.6-14.6); RBC Distribution Width SD 52.3 fl (35.1-43.9); Red Blood Count 4.48 M/mm3 (4.2-5.4); White Blood Count 13.5 K/mm3 (4.4-11.0)
[2021-10-24 13:50] LABS: Anion Gap 10 (5-15); BUN 24 mg/dL (7-18); BUN/Creat Ratio 12.9 RATIO (10-20); Calcium,Total 8.7 mg/dL (8.5-10.1); Chloride 106 mmol/L (98-107); Creatinine, Serum 1.86 mg/dL (0.55-1.02); EST Glomerular Filtration Rate 29 mL/min (>60); Est Glom Filt Rate - Afr Amer 35 mL/min (>60); Glucose 85 mg/dL (74-106); Potassium 3.7 mmol/L (3.5-5.1); Sodium Level 141 mmol/L (136-145)
[2021-11-29 09:29] VITALS: BP 153/85; PULSE 67; RESP 18; TEMP 36.9; O2SAT 98; BMI 28.3
--- NOTE | 2021-11-29 09:38 | HP.PCM_ITS ---
History and Physical Date of Admission: 11/29/21 [facility] [address] [place], [place] [phone] OFFICE VISIT Date of Service: 11/29/21 MR#:[id number] Acct:[id number] Name: TODD HERRERA Rep #:[id number] :1950 Provider: DAVION Schroeder Age/Sex: 71/F Location:[facility] Status:Signed Intake Intake Visit Reasons: recheck fistula--Dr. Richter check w/ doppler Chief Complaint: recheck fistula Resin Painter Required: No Is patient in pain?: No Allergies pravastatin Allergy (Severe, Verified 10/03/21 08:34) Chest tightness procaine [From Novocain] Allergy (Severe, Verified 10/03/21 08:34) NEEDS FOLLOW-UP sulfamethoxazole [From Bactrim] Allergy (Severe, Verified 10/03/21 08:34) Shortness of breath trimethoprim [From Bactrim] Allergy (Severe, Verified 10/03/21 08:34) Shortness of breath clindamycin Adverse Reaction (Severe, Verified 10/03/21 08:34) unsure of reaction methylprednisolone Adverse Reaction (Severe, Verified 10/03/21 08:34) Pain in joints levofloxacin [From Levaquin] Adverse Reaction (Verified 10/03/21 08:34) UNSURE OF REACTION novacaine Allergy (Uncoded 09/21/21 07:27) Unknown Medications albuterol sulfate 90 mcg/actuation aerosol inhaler 2 puff INHALATION Q6H PRN 07/25/18 [History Confirmed 10/03/21] metoprolol tartrate 50 mg PO BID 01/27/19 [History Confirmed 10/03/21] levothyroxine 25 mcg PO DAILY 01/09/20 [History Confirmed 10/03/21] potassium chloride 20 meq PO BID 09/01/20 [History Confirmed 10/03/21] fluticasone propionate [Flonase Allergy Relief] 1 spray INTRANASAL BID 05/19/21 [History Confirmed 10/03/21] cholecalciferol (vitamin D3) 1,250 mcg (50,000 unit) capsule 1,250 mcg PO QMONTH #1 cap 06/02/21 [Rx Confirmed 10/03/21] amlodipine 2.5 mg tablet 2.5 mg PO DAILY #90 tab 08/12/21 [Rx Confirmed 10/03/21] guaifenesin [Mucinex] 1,200 mg PO BID 09/16/21 [History Confirmed 10/03/21] Is last menstrual period known: No Post menopausal: Yes Patient : No PFSH Medical History Acute diarrhea LULY (acute kidney injury) Asthma Dunbar's palsy Bilateral hydronephrosis Bladder disease Blood disorder Bruising Cancer Cardiology follow-up encounter Cervical cancer Chronic renal failure, stage 4 (severe) Easy bruising Essential hypertension Former smoker Gout High anion gap metabolic acidosis History of biliary stent insertion History of cervical cancer History of Clostridium difficile infection History of COVID-19 History of irregular heartbeat History of renal disease Hx of cataract Hx of echocardiogram Hx of vertigo Hyperlipidemia Hypertension Hypokalemia Hyponatremia Leg cramps Lymphocytosis Mild intermittent asthma Near syncope Open wound Problem with dialysis access Sepsis Status post placement of implantable loop recorder (~03/29/20) Thyroid disease Urinary incontinence Wears dentures Surgical History History of arteriovenostomy for renal dialysis (~09/2021) History of cardiac catheterization (~01/08/18) History of cardiac catheterization History of cholecystectomy History of excision of mass History of hysterectomy History of loop recorder history of radium implant Hx of cystoscopy Family History Father , 32 yrs old CAD (coronary artery disease) History of coronary artery bypass surgery Social History household members: spouse and children number of children: 6 current occupational status: retired history of recent travel: No Smoking Status: Former smoker second hand exposure: No alcohol intake: never substance use type: does not use what type of physical activity do you participate in: walking saurabh/lutheran: Non-Scientologist/Independent seatbelt use: always do you feel safe at home: Yes additional social history: - Fernando HPI: Patient is a 71 y/o F I am following for chronic renal failure stage 4. She is not currently on dialysis. She denies recent hospitalizations or illnesses. She states she was exposed to her daughter who currently has COVID. Patient had a COVID test yesterday which was negative. Patient denies chest pain or shortness of breath. Patient's previous history: TODD HERRERA, is a 71 F who presents to the office today for follow-up of her fistula. Dr. Richter performed a stage I left upper extremity basilic vein to brachial artery arteriovenous hemodialysis fistula creation on 09/21/21. Patient tolerated the procedure well. She is not currently on dialysis. She is having very minimal amount of discomfort at the incision site. She denies feeling a vibration from the fistula. She returns to listen to the fistula with the doppler. She denies recent hospitalizations or illnesses. ROS General General: No weight change, appetite, fatigue, colon cancer, breast cancer or weakness HEENT HEENT: No difficulty swallowing, eye injury, eye surgery, swollen glands or hoarseness Endo Endocrine: No thyroid disease, diabetes mellitus, thyroid cancer, Hair loss, heat intolerance or cold intolerance Skin Skin: No rash or changing moles Breast Breast: No left breast lump, right breast lump, nipple discharge, breast pain, abnormal mammogram, abnormal US or breast enlargement Musc Musculoskeletal: No back problems, arthritis, rheumatoid arthritis, gout or joint pain Cardio Cardiovascular: Yes murmur and high blood pressure; No pacemaker, heart disease, atrial fibrillation, heart attack, heart stent, palpitations, shortness of breat with exertion or chest pain Psych Psychiatric: No depression, anxiety or hearing voices Resp Respiratory: No shortness of breath, No sleep apnea, No cough, No COPD, Yes asthma, No emphysema and No wheezing Gastro Gastrointestinal: No abdominal pain, No nausea or vomiting, No diarrhea, No constipation, No blood in stool, No acid reflux, No hemorrhoids, No ulcers, No gallbladder problem and No black,tarry stools Herson Hematologic: No blood thinners, No blood disorders, No bleeding, No anemia and No blood clots Neuro Neurologic: No system reviewed and no additional complaints, except as documented, No as per HPI, No abnormal gait, No abnormal hearing, No abnormal movements, No abnormal speech, No behavioral changes, No burning sensations, No confusion, No convulsions, No disequilibrium, No dizziness, No localized weakness, No frequent falls, No headache(s), No lack of coordination, No loss of vision, No memory loss, No numbness, No other visual disturbances, No radicular pain, No restless legs, No sensory deficit, No syncope, No tingling, No tremor(s), No weakness and No other Exam Const General: cooperative, healthy appearing, comfortable and no acute distress [facility] Head: normal to inspection Eyes General: appearance normal, both eyes and all related structures Neck Neck: normal visual inspection Neck mass: No Resp Effort & Inspection: normal respiratory effort Auscultation: clear to auscultation bilaterally Cardio Rate: regular rate Rhythm: regular rhythm GI Inspection: normal to inspection Palpation: soft Auscultation: normal bowel sounds Skin General: no rashes or lesions noted Neuro General: no focal motor deficits and CN's II-XI intact bilaterally Extrem Other: left upper extremity AV fistula- No pulse, bruit or thrill noted. Psych Appearance: grossly normal Affect: normal affect Assessment & Plan Assessment/Plan (1) Chronic renal failure, stage 4 (severe): PLAN: Assessment and Plan (1) Chronic renal failure, stage 4 (severe): Status: Chronic Plan - Eden DEY PA-C: Dr. Richter will plan to reevaluate the patient's left upper extremity fistula with bedside ultrasound. If fistula is noted to have some flow, Dr. Richter will plan to perform a stage II transposition of left upper extremity basilic vein to brachial artery arteriovenous fistula creation. Procedure details, risks and benefits have been explained to the patient. If fistula is not present, patient will be given further instructions on future fistula creations/plans. Patient is not on any blood thinners. Patient has had the opportunity to ask and have questions answered. Patient verbally understands and agrees with the plan.
--- NOTE | 2021-11-29 11:32 | EX.PCM.DISCH ---
Discharge Instructions Procedure Fistula Diet Discharge Diet: Renal Diet Activity Discharge Activity: May Not Drive (for 2-3 days or while taking narcotic pain medications.), May Shower and May Take a Tub Bath (in 5 days.) Lifting Restrictions: 5 pounds Keep extremity elevated above heart level: - (Keep arm elevated above the heart level for 3 days.) Dressing / Incision Call your doctor if your incision/area has: Continuous Slow Oozing, Sudden Increased Bleeding (apply pressure and call your doctor.), Increased Pain/ Swelling, Increased Redness and Foul Smelling Discharge Call your doctor if you observe: Fever of 101 or Higher Suture Line Care: Avoid Pulling/Pushing and Avoid Pinching/Bending Cleanse incision/area with: Keep Dressing Clean & Dry Additional Dressing/Incision Instructions:: Change or remove dressing in one day. May protect with a gauze bandaid. Follow Up Care Please Follow Up With: Ky Richter MD When: Call [phone] to make an appointment for suture removal and follow up in 1 week. Test Results: Test results from this visit will be discussed in further detail at your follow-up appointment, if applicable. Discharge Plan Admission Attending Provider: Ky Richter Primary Care Provider: Gerardo García Chi Discharge Orders/Prescriptions Prescriptions: No Action albuterol sulfate [Ventolin HFA] 90 mcg/actuation HFA aerosol inhaler 2 puff INHALATION Q6H PRN (Reason: Sob &/Or Wheezing) RF: 0 metoprolol tartrate 50 MG tablet 50 mg PO BID RF: 0 levothyroxine 25 MCG tablet 25 mcg PO DAILY RF: 0 potassium chloride 20 MEQ tablet,ER particles/crystals 20 meq PO BID RF: 0 ipratropium bromide 42 mcg (0.06 %) spray,non-aerosol 1 spray INTRANASAL DAILY RF: 0 cholecalciferol (vitamin D3) 1,250 mcg (50,000 unit) capsule 1,250 mcg PO QMONTH Qty: 1 RF: 0 amlodipine 2.5 mg tablet 2.5 mg PO DAILY Qty: 90 RF: 3
[2021-11-29] MEDS: Heparin Injection (Vial) 5,000 UNIT/ML VIAL 5000 UNIT (13:20)
[2021-11-29] MEDS: Lidocaine 0.5% (50 ml) 50 ML Vial (13:20)
[2021-11-29] MEDS: Lidocaine 1% (30 ml sdv) 30 ML Vial (13:28)
[2021-11-29] MEDS: Bupivacaine Mpf 0.5% 30 ML VIAL (13:28)
--- NOTE | 2021-11-29 13:35 | PCM.OPRPT ---
Problems Associated Problem List Diagnoses (1) Chronic renal failure, stage 4 (severe): Report of Operation Date of Procedure: 11/29/21 Pre-Operative Diagnosis: Stage IV chronic kidney disease Post-Operative Diagnosis: Same Surgery/Procedure Performed:: Transposition left upper arm basilic vein to brachial artery arteriovenous hemodialysis fistula creation Description of Surgical Findings:: Timeout informed consent was obtained. 71-year-old female was taken to the operating placed upon the table underwent general anesthesia. Ancef 2 g were given intravenously. The left extremity was sterilely prepped and draped. Throughout the procedure 22 cc of half percent lidocaine and 34 cc of 1% lidocaine mixed 50-50 with 0.5% Marcaine was used as a local anesthetic. Ultrasound was used to map the course of the basilic vein. Local was instilled. A longitudinal incision was tediously made up the medial aspect of the left upper arm. Sharp and blunt dissection was used to dissect free the basilic vein. Side branches were secured with 4-0 Vicryl ligatures and hemoclips were indicated. The vein was dissected free from the antecubital space to the proximal upper arm almost shoulder area. Having achieved what I thought was adequate length I then measured the vein made a curvilinear course on the anterior aspect of the upper arm identified then spot to dissect down for the brachial artery. I performed that dissection identify the brachial artery and obtain circumferential control. I then ligated the vein distally at the antecubital space at a branch point. I spatulated the branch point to make for a larger anastomosis. I then tunneled the graft from the shoulder to the distal upper arm area. That point the patient received 8000 units of heparin intravenously. Peripheral vascular clamps were placed on the brachial artery proximally and distally and 11 blade was used to make an arteriotomy which was extended with Hatch scissors. A end-to-side venous to arterial anastomosis was created with a running 7-0 Prolene. Prior to completion there was good flow noted in the brachial artery. The anastomosis was completed and was intact. The vein appeared to have a good positional lie. There was excellent flow in the fistula. The hand was inspected. Doppler signals were present still at both the left radial and ulnar site albeit diminished from preoperatively. The hand was carefully inspected. It was noted to pink it did have slightly diminished capillary refill. Multiple times Doppler signals were checked and the hand was inspected. It was felt that adequate flow was going through the fistula and that the hand had adequate flow for viability. The wound was then closed with a deep suture of interrupted 3-0 Vicryl to approximate the deep space. Then subcutaneous sutures of interrupted 3-0 Vicryl. Then the skin edges were approximated running septic or 4 Monocryl. Steri-Strips Telfa tape dressings soft roll and Jacky wrap applied. Sponge and instrument and needle counts were reported to the surgeon to be correct. Blood loss was minimal. Specimens none. Drains none. The patient was taken to the recovery area in satisfactory addition without apparent complication Ky Richter M.D., F.A.C.S. Surgeon: Ky Richter Type of Anesthesia: General and Local Anesthesiologist: Bennie Pizano
[2021-11-29 14:08] VITALS: BP 120/81; BP 153/85; PULSE 83; RESP 16; TEMP 36.7; O2SAT 96
[2021-11-29 14:15] VITALS: BP 128/75; BP 153/85; PULSE 82; RESP 16; O2SAT 100
[2021-11-29 14:30] VITALS: BP 127/74; BP 153/85; PULSE 74; RESP 16; TEMP 36.9; O2SAT 93
[2021-11-29 16:00] VITALS: BP 153/85
== END 2021-11-29 23:59 | disposition home or self-care (01) ==
LOC: SDC 08:57 → AC 08:57
PROVIDERS: PCP Family Medicine Geriatric Medicine; Referring Provider Surgery; Visit Provider Surgery
PROC: (CPT 1844; principal; 2021-11-29 10:45)
DX: I12.9 Hypertensive chronic kidney disease with stage 1 through stage 4 chronic kidney disease, or unspecified chronic kidney disease (principal); N18.4 Chronic kidney disease, stage 4 (severe); Z87.891 Personal history of nicotine dependence; E07.9 Disorder of thyroid, unspecified; E78.5 Hyperlipidemia, unspecified; Z85.41 Personal history of malignant neoplasm of cervix uteri; Z86.19 Personal history of other infectious and parasitic diseases; Z86.16 Personal history of COVID-19; M10.9 Gout, unspecified; J45.20 Mild intermittent asthma, uncomplicated; Z79.899 Other long term (current) drug therapy; Z87.448 Personal history of other diseases of urinary system
CPT/HCPCS: 01844; 36415; 80048; 85027; J7040; J7120; J2405

== ENCOUNTER 2021-12-05 15:34 | Emergency (ER) | payer MEDICARE, SELFPAY ==
[2021-12-05 15:35] VITALS: BP 150/83; PULSE 87; RESP 16; TEMP 36.4; O2SAT 96; BMI 27.9
--- NOTE | 2021-12-05 15:49 | EDS_ITS ---
HPI History of Present Illness Chief Complaint: Wound Check Detail of Chief Complaint: Wound check Informant: patient Narrative Narrative: Patient presents to the emergency department with her daughter requesting to have her dressing from her left arm removed. Patient states that she had surgery to have a fistula in her left arm with Dr. Ky Richter 6 days ago. Patient was advised to take the dressing off in 3 days and she waited too long. Patient states that family try to help her get the dressing off today and they were worried about causing more trauma and bleeding and there was dried blood in place that they were worried about causing skin tears. Patient presents to the emergency department to help remove her dressing. She has a follow-up appointment with her surgeon in 2 days. [facility] Medical History (Updated 12/05/21 @ 15:[address] Lexa Hull DO) Acute diarrhea LULY (acute kidney injury) Asthma Dunbar's palsy Bilateral hydronephrosis Bladder disease Blood disorder Bruising Cancer Cardiology follow-up encounter Cervical cancer Chronic renal failure, stage 4 (severe) Easy bruising Essential hypertension Former smoker Gout High anion gap metabolic acidosis History of biliary stent insertion History of cervical cancer History of Clostridium difficile infection History of COVID-19 History of irregular heartbeat History of renal disease Hx of cataract Hx of echocardiogram Hx of vertigo Hyperlipidemia Hypertension Hypokalemia Hyponatremia Leg cramps Lymphocytosis Mild intermittent asthma Near syncope Open wound Problem with dialysis access Sepsis Status post placement of implantable loop recorder (~03/29/20) Thyroid disease Urinary incontinence Wears dentures Home Medications albuterol sulfate 90 mcg/actuation aerosol inhaler 2 puff INHALATION Q6H PRN 07/25/18 [History Last Taken 09/23/20] metoprolol tartrate 50 mg PO BID 01/27/19 [History Last Taken 11/29/21 07:00] levothyroxine 25 mcg PO DAILY 01/09/20 [History Last Taken 11/29/21 07:00] potassium chloride 20 meq PO BID 09/01/20 [History Last Taken 09/23/20] cholecalciferol (vitamin D3) 1,250 mcg (50,000 unit) capsule 1,250 mcg PO QMONTH #1 cap 06/02/21 [Rx Last Taken Unknown] amlodipine 2.5 mg tablet 2.5 mg PO DAILY #90 tab 08/12/21 [Rx Last Taken 11/29/21 07:00] ipratropium bromide 1 spray INTRANASAL DAILY 11/23/21 [History Last Taken 11/29/21 07:00] hydrocodone-acetaminophen 1 tab PO Q8H PRN 3 Days #10 tab 11/29/21 [Rx Last Taken Unknown] Allergy/AdvReac Type Severity Reaction Status Date / Time pravastatin Allergy Severe Chest Verified 12/05/21 15:43 tightness procaine [From Novocain] Allergy Severe NEEDS Verified 12/05/21 15:43 FOLLOW-UP sulfamethoxazole Allergy Severe Shortness Verified 12/05/21 15:43 [From Bactrim] of breath trimethoprim [From Bactrim] Allergy Severe Shortness Verified 12/05/21 15:43 of breath [id number] Reductase Allergy Anaphylaxis Verified 12/05/21 15:43 Inhibitor clindamycin AdvReac Severe unsure of Verified 12/05/21 15:43 reaction methylprednisolone AdvReac Severe Pain in Verified 12/05/21 15:43 joints levofloxacin [From Levaquin] AdvReac UNSURE OF Verified 12/05/21 15:43 REACTION novacaine Allergy Unknown Uncoded 12/05/21 15:43 Family History (Reviewed 10/20/21 @ 14:34 by Alphonso Kaplan 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, 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) Father , 32 yrs old CAD (coronary artery disease) History of coronary artery bypass surgery Surgical History History of arteriovenostomy for renal dialysis (~09/2021) History of cardiac catheterization (~01/08/18) History of cardiac catheterization History of cholecystectomy History of excision of mass History of hysterectomy History of loop recorder history of radium implant Hx of cystoscopy S/P arteriovenous (AV) fistula creation Social History (Reviewed 10/20/21 @ 14:34 by Alphonso Kaplan 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, 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) household members: spouse and children number of children: 6 current occupational status: retired history of recent travel: No Smoking Status: Former smoker second hand exposure: No alcohol intake: never substance use type: does not use what type of physical activity do you participate in: walking saurabh/jew: Non-Yazdanism/Independent seatbelt use: always do you feel safe at home: Yes additional social history: - Fernando PALOMO ROS ED ROS Narrative Dressing check/wound check left upper arm Constitutional Constitutional ED: Reports systems reviewed and no addt'l complaints, except as documented; Denies body ache(s), change in weight or chills Eyes Eyes: Denies acute decrease in peripheral vision, change in vision, double vision or loss of vision ENT ENT ED: Reports none; Denies ear pain, lip swelling, loss taste/smell, neck pain, otalgia or sore throat Cardiovascular Cardiovascular: Reports none; Denies abdominal pain, chest pain with activity, leg edema, lightheadedness, palpitations, rapid heart rate or syncope Respiratory/Chest Respiratory/Chest: Reports none; Denies change in mental status, dry cough, dyspnea, hemoptysis, shortness of breath at rest or shortness of breath with exertion Gastrointestinal Gastrointestinal: Reports none; Denies abdominal pain, change in stool character, diarrhea, hematemesis, hematochezia, melena, rectal bleeding or vomiting Genitourinary Genitourinary ED: Reports none; Denies abdominal discomfort, anuria, dysuria, genital pain or polyuria Musculoskeletal Musculoskeletal: Reports none; Denies arthralgias, back pain, difficulty walking, extremity pain, muscle weakness or myalgias Integumentary Reports none; Denies abscess or rash Neurologic Neurologic: Reports none; Denies abnormal gait, confusion, focal weakness, frequent falls, headache(s), loss of vision, numbness, paresthesias, radicular pain, vertigo or weakness Psychiatric Psychiatric: Reports systems reviewed and no addt'l complaints, except as documented and none; Denies behavioral changes, confusion, difficulty concentrating, hallucinations, suicidal ideation, tactile hallucinations or visual hallucinations Endocrine Endocrinology: Denies none, cold intolerance, excessive sweating, fatigue or heat intolerance Hematologic/Lymphatic Hematologic/Lymphatic: Reports none; Denies anemia, easy bleeding or easy bruising Allergic/Immunologic Allergic/Immunologic ED: Denies as per HPI, none, lip swelling, mouth swelling, throat swelling, tongue swelling or hives EXAM Physical Exam Const Vital Signs: 12/05/21 15:35 Temperature 97.6 F L Temperature Source Temporal Pulse Rate 87 Respiratory Rate 16 Blood Pressure 150/83 H Blood Pressure Mean 105 Pulse Ox 96 Oxygen Delivery Method Room Air Positive well nourished and well developed General Appearance ED: well developed and NAD HEENT Reports TM's clear and moist mucous membranes normocephalic and atraumatic; Negative for trauma or tenderness Tympanic Membrane ED: Yes TM's clear Eyes PERRL and EOMs intact bilaterally General Eye ED: Negative for pale conjunctiva or scleral icterus Neck no lymphadenopathy, supple and no JVD General: Negative for tenderness Chest Wall inspection of chest normal and palpation of chest normal Chest: Negative for tenderness Resp normal respiratory effort and clear to auscultation bilaterally Effort and Inspection: Negative for respiratory distress or pain with movement Auscultation: Negative for rhonchi, wheezes or diminished lung sounds Cardio regular rate, regular rhythm, S1 normal heart sound, S2 normal heart sound and no murmurs Peripheral Pulses: pulses 2+ throughout GI normal to inspection, nondistended, normoactive bowel sounds, soft to palpation, non-tender, non-distended and no masses Back/Spine no CVA tenderness and no thoracic nor lumbar tenderness Extremity Extremity Narrative: Evaluation of left arm revealed a bulky dressing that the nurse had removed. There were some Steri-Strips still in place some of which should come off with the dressing that the nurse had taken off. No active bleeding noted. There is no erythema or cellulitic changes noted. No significant skin dehiscence noted. Some of the remaining Steri-Strips were able to be easily removed. Patient has a good thrill to her fistula and she is neurovascular intact distally. General Extremety ED: Negative for edema General Extremity: Negative for edema Neuro oriented x3, CN's II-XII intact bilaterally, no sensory deficits noted and gait normal Sensorium / Orientation: awake, alert, oriented to person, oriented to place and oriented to time Motor Exam: strength 5/5 throughout and strength abnormal Psych mental status grossly normal Skin no rashes or lesions noted and no wounds MDM MDM MDM Narrative Medical decision making narrative: Patient had the bulky dressing removed and small portion of the Steri-Strips were left in place. A new clean dressing was applied. Patient advised to keep her appointment with her surgeon in 2 days. Discharge Plan Triage Chief Complaint: Wound Check ED Provider: Lexa Hull Dx/Rx/DC Orders Clinical Impression: Visit for wound check Instructions: ED Wound Check (No Infection) Prescriptions: No Action albuterol sulfate [Ventolin HFA] 90 mcg/actuation HFA aerosol inhaler 2 puff INHALATION Q6H PRN (Reason: Sob &/Or Wheezing) RF: 0 metoprolol tartrate 50 MG tablet 50 mg PO BID RF: 0 levothyroxine 25 MCG tablet 25 mcg PO DAILY RF: 0 potassium chloride 20 MEQ tablet,ER particles/crystals 20 meq PO BID RF: 0 hydrocodone-acetaminophen 5-325 mg tablet 1 tab PO Q8H PRN (Reason: pain) 3 Days Qty: 10 RF: 0 ipratropium bromide 42 mcg (0.06 %) spray,non-aerosol 1 spray INTRANASAL DAILY RF: 0 cholecalciferol (vitamin D3) 1,250 mcg (50,000 unit) capsule 1,250 mcg PO QMONTH Qty: 1 RF: 0 amlodipine 2.5 mg tablet 2.5 mg PO DAILY Qty: 90 RF: 3 Primary Care Provider: Gerardo García Chi Referrals: Ky Richter MD [STAFF PHYSICIAN] - 2 Days Gerardo García Chi, MD [Primary Care Provider] - Disposition Disposition: Home, Self Care
== END 2021-12-05 16:05 | disposition home or self-care (01) ==
PROVIDERS: Emergency Provider Emergency Medicine; PCP Family Medicine Geriatric Medicine; Visit Provider Emergency Medicine
DX: Z48.01 Encounter for change or removal of surgical wound dressing (principal); N18.4 Chronic kidney disease, stage 4 (severe); E78.5 Hyperlipidemia, unspecified; I12.9 Hypertensive chronic kidney disease with stage 1 through stage 4 chronic kidney disease, or unspecified chronic kidney disease; E07.9 Disorder of thyroid, unspecified; Z79.899 Other long term (current) drug therapy; Z86.16 Personal history of COVID-19; Z87.891 Personal history of nicotine dependence
CPT/HCPCS: 99283

== ENCOUNTER 2021-12-06 13:30 | Outpatient (CLI) | payer MEDICARE, SELFPAY | END 2021-12-06 23:59 | disposition short-term general hospital (02) | LOC: LABSPEC 12-08 11:15 | PROVIDERS: PCP Family Medicine Geriatric Medicine; Visit Provider Urology | DX: N31.1 Reflex neuropathic bladder, not elsewhere classified (principal); N13.1 Hydronephrosis with ureteral stricture, not elsewhere classified | CPT/HCPCS: 87077; 87086; 87088; 87186 ==

== ENCOUNTER 2021-12-08 15:56 | Outpatient (CLI) | payer MEDICARE, SELFPAY ==
[2021-12-08 16:58] LABS: Hematocrit 43.7 % (37-47); Hemoglobin 13.6 g/dL (12.0-15.0); Mean Corp Hgb Conc 31.1 g/dL (32-36); Mean Corpuscular Hgb 31.3 pg (27.0-32.0); Mean Corpuscular Volume 100.5 fL (81-99); Mean Platelet Vol. 10.4 fl (6.2-12.0); Platelet Count 394 K/mm3 (150-450); RBC Distribution Width CV 13.4 % (11.6-14.6); RBC Distribution Width SD 50.1 fl (35.1-43.9); Red Blood Count 4.35 M/mm3 (4.2-5.4); White Blood Count 16.7 K/mm3 (4.4-11.0)
[2021-12-08 17:31] LABS: Albumin, Serum 2.7 g/dL (3.2-5.0); BUN 17 mg/dL (7-18); BUN/Creat Ratio 8.9 RATIO (10-20); Calcium,Total 8.8 mg/dL (8.5-10.1); Chloride 104 mmol/L (98-107); Creatinine, Serum 1.91 mg/dL (0.55-1.02); EST Glomerular Filtration Rate 28 mL/min (>60); Est Glom Filt Rate - Afr Amer 34 mL/min (>60); Glucose 93 mg/dL (74-106); Phosphorus 3.3 mg/dL (2.5-4.9); Sodium Level 136 mmol/L (136-145)
[2021-12-09 07:32] LABS: PTHIN 166.1 pg/mL (18.4-80.1)
== END 2021-12-08 23:59 | disposition short-term general hospital (02) ==
LOC: POLAB3 15:56
PROVIDERS: PCP Family Medicine Geriatric Medicine; Visit Provider Internal Medicine Nephrology
DX: N18.4 Chronic kidney disease, stage 4 (severe) (principal); D63.1 Anemia in chronic kidney disease; N13.1 Hydronephrosis with ureteral stricture, not elsewhere classified
CPT/HCPCS: 36415; 80069; 83970; 85027; 87086

== ENCOUNTER 2021-12-30 12:46 | Day surgery (SDC) | payer MEDICARE, SELFPAY ==
[2021-11-28 14:06] LABS: Hematocrit 45.6 % (37-47); Hemoglobin 14.6 g/dL (12.0-15.0); Mean Corpuscular Hgb 32.1 pg (27.0-32.0); Mean Corpuscular Volume 100.2 fL (81-99); Mean Platelet Vol. 10.1 fl (6.2-12.0); Platelet Count 340 K/mm3 (150-450); RBC Distribution Width CV 13.7 % (11.6-14.6); RBC Distribution Width SD 50.5 fl (35.1-43.9); Red Blood Count 4.55 M/mm3 (4.2-5.4); White Blood Count 15.1 K/mm3 (4.4-11.0)
[2021-11-28 14:29] LABS: Anion Gap 6 (5-15); BUN 20 mg/dL (7-18); BUN/Creat Ratio 10.2 RATIO (10-20); Calcium,Total 8.6 mg/dL (8.5-10.1); Chloride 105 mmol/L (98-107); Creatinine, Serum 1.96 mg/dL (0.55-1.02); EST Glomerular Filtration Rate 27 mL/min (>60); Est Glom Filt Rate - Afr Amer 33 mL/min (>60); Glucose 97 mg/dL (74-106); Potassium 3.8 mmol/L (3.5-5.1); Sodium Level 141 mmol/L (136-145)
[2021-12-30] VITALS (7 sets, daily range): BP systolic 85–153; BP diastolic 40–82; PULSE 68–82; RESP 15–18; TEMP 36.3–36.6; O2SAT 92–99; BMI 28.1
[2021-12-30] MEDS: Cefazolin 2 GM in 0.9% Normal Saline 100 ML IV (14:39)
--- NOTE | 2021-12-30 15:10 | PCM.HP.STD ---
HPI - General HPI Narrative TODD HERRERA, is a 71 F who presents for stent change [facility] Medical History Acute diarrhea LULY (acute kidney injury) Asthma Dunbar's palsy Bilateral hydronephrosis Bladder disease Blood disorder Bruising Cancer Cardiology follow-up encounter Cervical cancer Chronic renal failure, stage 4 (severe) Easy bruising Essential hypertension Former smoker Gout High anion gap metabolic acidosis History of biliary stent insertion History of cervical cancer History of Clostridium difficile infection History of COVID-19 History of irregular heartbeat History of renal disease Hx of cataract Hx of echocardiogram Hx of vertigo Hyperlipidemia Hypertension Hypokalemia Hyponatremia Leg cramps Lymphocytosis Mild intermittent asthma Near syncope Open wound Problem with dialysis access Sepsis Status post placement of implantable loop recorder (~03/29/20) Thyroid disease Urinary incontinence Wears dentures Home Medications albuterol sulfate 90 mcg/actuation aerosol inhaler 2 puff INHALATION Q6H PRN 07/25/18 [History Last Taken 12/30/21 10:00] metoprolol tartrate 50 mg PO BID 01/27/19 [History Last Taken 12/30/21 10:00] levothyroxine 25 mcg PO DAILY 01/09/20 [History Last Taken 11/29/21 07:00] potassium chloride 20 meq PO BID 09/01/20 [History Last Taken 09/23/20] cholecalciferol (vitamin D3) 1,250 mcg (50,000 unit) capsule 1,250 mcg PO QMONTH #1 cap 06/02/21 [Rx Last Taken Unknown] amlodipine 2.5 mg tablet 2.5 mg PO DAILY #90 tab 08/12/21 [Rx Last Taken 12/30/21 10:00] ipratropium bromide 1 spray INTRANASAL DAILY 11/23/21 [History Last Taken 11/29/21 07:00] Allergy/AdvReac Type Severity Reaction Status Date / Time pravastatin Allergy Severe Chest Verified 12/30/21 13:13 tightness procaine [From Novocain] Allergy Severe NEEDS Verified 12/30/21 13:13 FOLLOW-UP sulfamethoxazole Allergy Severe Shortness Verified 12/30/21 13:13 [From Bactrim] of breath trimethoprim [From Bactrim] Allergy Severe Shortness Verified 12/30/21 13:13 of breath [id number] Reductase Allergy Anaphylaxis Verified 12/30/21 13:13 Inhibitor clindamycin AdvReac Severe unsure of Verified 12/30/21 13:13 reaction methylprednisolone AdvReac Severe Pain in Verified 12/30/21 13:13 joints levofloxacin [From Levaquin] AdvReac UNSURE OF Verified 12/30/21 13:13 REACTION novacaine Allergy Unknown Uncoded 12/30/21 13:13 Family History Father , 32 yrs old CAD (coronary artery disease) History of coronary artery bypass surgery Surgical History History of arteriovenostomy for renal dialysis (~09/2021) History of cardiac catheterization (~01/08/18) History of cardiac catheterization History of cholecystectomy History of excision of mass History of hysterectomy History of loop recorder history of radium implant Hx of cystoscopy S/P arteriovenous (AV) fistula creation Social History household members: spouse and children number of children: 6 current occupational status: retired history of recent travel: No Smoking Status: Former smoker second hand exposure: No alcohol intake: never substance use type: does not use what type of physical activity do you participate in: walking saurabh/zoroastrianism: Non-Mandaeism/Independent seatbelt use: always do you feel safe at home: Yes additional social history: - Fernando Vital Signs Vital Signs Vital Signs: 12/30/21 13:10 Temperature 97.4 F L Temperature Source Temporal Pulse Rate 80 Respiratory Rate 18 Respiratory Pattern Normal Blood Pressure 153/82 H Blood Pressure Mean 105 Blood Pressure Source Monitor Blood Pressure Position Semi-Fowlers Blood Pressure Location Right Arm Pulse Ox 99 Oxygen Delivery Method Room Air Weight Weight: 84 kg Body Mass Index (BMI) 28.1 Results Lab / Micro Data Result Diagrams: 11/28/21 13:40 11/28/21 13:40
--- NOTE | 2021-12-30 15:11 | OP.PCM_ITS ---
Report of Operation Date of Procedure: 12/30/21 Pre-Operative Diagnosis: Bilateral ureteral obstruction Post-Operative Diagnosis: The same Surgery/Procedure Performed:: Cystoscopy bilateral stent change and retrograde pyelograms interpretation fluoroscopic images Description of Surgical Findings:: Patient was taken back to the operating room after induction of general anesthesia, the patient was placed in dorsolithotomy position. The urethra and genitals were prepped and draped in usual sterile fashion. Using a 21 Bhutanese rigid cystourethroscope the entire length of the urethra was normal then went into the bladder. Identified the trigone the left and right ureteral orifice. I then cannulated the Right orifice and advanced a wire up into the kidney. I then backloaded a 5 Bhutanese open ended catheter over the wire and injected contrast to delineate the anatomy. After the retrograde was performed I then used fluoroscopic images and guidance to advanced a wire up into the kidney and over the 0.038 glidewire I advanced a 6 Bhutanese by 26 cm double pigtail stent. I then pulled the 0.038 Glidewire off and the stent coiled in the kidney bladder good position. The bladder was then drained. We confirmed the position of the stent by fluoroscopy. Identified the trigone the left and right ureteral orifice. I then cannulated the Right orifice and advanced a wire up into the kidney. I then backloaded a 5 Bhutanese open ended catheter over the wire and injected contrast to delineate the anatomy. After the retrograde was performed I then used fluoroscopic images and guidance to advanced a wire up into the kidney and over the 0.038 glidewire I advanced a 6 Bhutanese by 26 cm double pigtail stent. I the, Patient anesthetic was reversed and was taken back to the PACU in good condition. Surgeon: john Type of Anesthesia: General Drains: bilateral stent Admit VTE Documentation VTE Present on Admission: No VTE Mechan Device Prophylaxis: SCD's VTE Pharm Prophylaxis ordered?: No
--- NOTE | 2021-12-30 15:11 | PCM.DC ---
Discharge Instructions Diet Discharge Diet: No restrictions Activity Discharge Activity: Return to Normal Activity and May Not Drive (while taking narcotic pain medications.) Dressing / Incision Call your doctor if you observe: Fever of 101 or Higher Follow Up Care Please Follow Up With: Joshua Strickland MD When: Call [phone] for an appointment Test Results: Test results from this visit will be discussed in further detail at your follow-up appointment, if applicable. Discharge Plan Admission Primary Reason for Your Visit: bilateral stents Attending Provider: Joshua Strickland Primary Care Provider: Gerardo García Chi Discharge Orders/Prescriptions Prescriptions: No Action albuterol sulfate [Ventolin HFA] 90 mcg/actuation HFA aerosol inhaler 2 puff INHALATION Q6H PRN (Reason: Sob &/Or Wheezing) RF: 0 metoprolol tartrate 50 MG tablet 50 mg PO BID RF: 0 levothyroxine 25 MCG tablet 25 mcg PO DAILY RF: 0 potassium chloride 20 MEQ tablet,ER particles/crystals 20 meq PO BID RF: 0 ipratropium bromide 42 mcg (0.06 %) spray,non-aerosol 1 spray INTRANASAL DAILY RF: 0 cholecalciferol (vitamin D3) 1,250 mcg (50,000 unit) capsule 1,250 mcg PO QMONTH Qty: 1 RF: 0 amlodipine 2.5 mg tablet 2.5 mg PO DAILY Qty: 90 RF: 3 Referrals / Follow Up: Joshua Strickland MD [STAFF PHYSICIAN] - Gerardo García Chi, MD [Primary Care Provider] - Disposition Disposition (needs filled in before D/C Order can be placed): Home, Self Care
== END 2021-12-30 23:59 | disposition home or self-care (01) ==
LOC: SDC 12:47 → AC 12:47
PROVIDERS: Surgery; PCP Family Medicine Geriatric Medicine; Referring Provider Urology; Visit Provider Urology
PROC: (CPT 52332; principal; 2021-12-30 14:50)
DX: N13.5 Crossing vessel and stricture of ureter without hydronephrosis (principal); N18.5 Chronic kidney disease, stage 5; I12.0 Hypertensive chronic kidney disease with stage 5 chronic kidney disease or end stage renal disease; E07.9 Disorder of thyroid, unspecified; E78.5 Hyperlipidemia, unspecified; Z87.891 Personal history of nicotine dependence; Z79.899 Other long term (current) drug therapy; Z79.890 Hormone replacement therapy; D63.8 Anemia in other chronic diseases classified elsewhere; J45.20 Mild intermittent asthma, uncomplicated; Z86.16 Personal history of COVID-19
CPT/HCPCS: 52332; 00910; 36415; 76000; 80048; 85027; 87426; C9803; J7040; C1769; C2617

== ENCOUNTER 2022-01-19 09:07 | Outpatient (CLI) | payer MEDICARE, SELFPAY ==
--- NOTE | 2022-01-19 09:56 | RAD_ITS ---
EXAM: XR ABDOMEN, 2 VIEWS : 1950 CLINICAL INDICATION: FECAL IMPACTION TECHNIQUE: Frontal view of the abdomen/pelvis with upright view of the abdomen. This report was created using [employer] report People to Remember technology. COMPARISON: None. FINDINGS: LOWER THORAX: No acute pathology. INTRAPERITONEAL SPACE: No free air. GASTROINTESTINAL TRACT: Unremarkable. Non-obstructive. No bowel or stomach distention. ORGANS: Unremarkable as visualized. No organomegaly. No abnormal calcifications. BONES/JOINTS: No acute pathology. SOFT TISSUES: No acute pathology. TUBES, LINES AND DEVICES: There are bilateral ureteral stents in place. RAD/Abd Inc Decub and/or Erect IMPRESSION: No acute findings in the abdomen or pelvis. at 0238 Reported and signed by: London Valentin MD Electronically Signed: London Valentin MD at 2:36 EST ,
[2022-01-19 12:46] LABS: Absolute Lymphocyte Count 5.62 X10^3/uL (0.83-4.51); Absolute Neutrophil Count 5.2 X10^3/uL (2.0-7.7); Basophil# 0.07 X10^3/uL; Basophil% 0.6 % (0-1); Eosinophil# 0.19 X10^3/uL; Eosinophils% 1.6 % (0-5); Hematocrit 44.9 % (37-47); Hemoglobin 14.3 g/dL (12.0-15.0); Lymphocyte # 5.62 X10^3/ul (0.83-4.51); Lymphocyte % 47.3 % (19-41); Mean Corp Hgb Conc 31.8 g/dL (32-36); Mean Corpuscular Volume 100.4 fL (81-99); Mean Platelet Vol. 10.8 fl (6.2-12.0); Monocyte# 0.74 X10^3/uL; Monocyte% 6.2 % (0-10); NRBC Flagged by Analyzer 0 % (0-5); Neutrophil % 43.8 % (47-70); POSITIVE DIFFERENTIAL YES; Platelet Count 378 K/mm3 (150-450); RBC Distribution Width CV 13.6 % (11.6-14.6); RBC Distribution Width SD 49.8 fl (35.1-43.9); Red Blood Count 4.47 M/mm3 (4.2-5.4); White Blood Count 11.9 K/mm3 (4.4-11.0)
[2022-01-19 12:47] LABS: Vitamin D,25 Hydroxy 33.2 ng/mL
[2022-01-19 12:50] LABS: Differential Indicated SCAN CRITERIA MET
[2022-01-19 12:58] LABS: ALB/GLOB Ratio 0.5 RATIO (0.9-2.4); AST(SGOT) 16 U/L (15-37); Alanine Aminotransfer ALT/SGPT 19 U/L (13-56); Albumin, Serum 2.7 g/dL (3.2-5.0); Alkaline Phosphatase 114 U/L (45-117); Anion Gap 6 (5-15); BUN 24 mg/dL (7-18); BUN/Creat Ratio 12.5 RATIO (10-20); Calcium,Total 8.8 mg/dL (8.5-10.1); Chloride 107 mmol/L (98-107); Cholesterol 197 mg/dL (200); Creatinine, Serum 1.92 mg/dL (0.55-1.02); EST Glomerular Filtration Rate 28 mL/min (>60); Est Glom Filt Rate - Afr Amer 33 mL/min (>60); Globulin 5.2 g/dL (2.2-4.2); Glucose 92 mg/dL (74-106); High Density Lipoprotein 38 mg/dL; Protein, Total 7.9 g/dL (6.4-8.2); Sodium Level 138 mmol/L (136-145); Thyroid Stim Hormone (TSH) 3.68 uIU/mL (0.358-3.74); Triglycerides 160 mg/dL; Uric Acid 5.4 mg/dL (2.6-6.0); Very Low Density Lipoprotein 32 mg/dL (5-40)
== END 2022-01-19 23:59 | disposition home or self-care (01) ==
PROVIDERS: PCP Family Medicine Geriatric Medicine; Visit Provider Family Medicine Geriatric Medicine
DX: E55.9 Vitamin D deficiency, unspecified (principal); K56.41 Fecal impaction; N39.0 Urinary tract infection, site not specified; E78.5 Hyperlipidemia, unspecified; I10 Essential (primary) hypertension
CPT/HCPCS: 36415; 74019; 80053; 80061; 82306; 84443; 84550; 85025; 87086; 87088

== ENCOUNTER 2022-01-26 16:30 | Outpatient (CLI) | payer MEDICARE, SELFPAY ==
--- NOTE | 2022-01-26 17:10 | RAD_ITS ---
STUDY: X-RAY CHEST REASON FOR EXAM: Female, 71 years old. SOB TECHNIQUE: PA and lateral views of the chest. COMPARISON: 12/19/2020 FINDINGS: Interval cardiac monitor technician. The lungs are clear and expanded. There is no demonstrated pleural abnormality. Normal size heart. Normal mediastinum and wayne. Normal visualized pulmonary arteries. Normal visualized aortic arch and descending thoracic aorta. Normal visualized thoracic spine. Normal visualized ribs, clavicles, and shoulders. There is no demonstrated abnormality of the visualized soft tissue structures of the upper abdomen. RAD/Chest PA and Lateral IMPRESSION: Normal x-ray examination of the chest. Electronically Signed: Umer Ayon MD at 17:26 EST ,
[2022-01-26 17:43] LABS: Absolute Lymphocyte Count 8.09 X10^3/uL (0.83-4.51); Absolute Neutrophil Count 8.7 X10^3/uL (2.0-7.7); Basophil# 0.07 X10^3/uL; Basophil% 0.4 % (0-1); Eosinophil# 0.08 X10^3/uL; Eosinophils% 0.4 % (0-5); Hematocrit 45.7 % (37-47); Hemoglobin 15.2 g/dL (12.0-15.0); Lymphocyte # 8.09 X10^3/ul (0.83-4.51); Lymphocyte % 44.7 % (19-41); Mean Corp Hgb Conc 33.3 g/dL (32-36); Mean Corpuscular Hgb 32.3 pg (27.0-32.0); Mean Corpuscular Volume 97.2 fL (81-99); Mean Platelet Vol. 10.3 fl (6.2-12.0); Monocyte# 0.96 X10^3/uL; Monocyte% 5.3 % (0-10); NRBC Flagged by Analyzer 0 % (0-5); Neutrophil # 8.73 X10^3/uL (2.7-7.7); Neutrophil % 48.3 % (47-70); POSITIVE DIFFERENTIAL YES; Platelet Count 346 K/mm3 (150-450); RBC Distribution Width SD 49.8 fl (35.1-43.9); White Blood Count 18.1 K/mm3 (4.4-11.0)
[2022-01-26 17:53] LABS: Differential Indicated SCAN CRITERIA MET
[2022-01-26 17:57] LABS: BNP,B-Type NATRIURETIC PEPTIDE 100.1 pg/mL (0-100)
[2022-01-26 18:15] LABS: Anion Gap 8 (5-15); BUN 25 mg/dL (7-18); BUN/Creat Ratio 13.4 RATIO (10-20); Calcium,Total 8.5 mg/dL (8.5-10.1); Chloride 106 mmol/L (98-107); Creatinine, Serum 1.87 mg/dL (0.55-1.02); EST Glomerular Filtration Rate 28 mL/min (>60); Est Glom Filt Rate - Afr Amer 34 mL/min (>60); Glucose 104 mg/dL (74-106); Potassium 3.5 mmol/L (3.5-5.1); Sodium Level 140 mmol/L (136-145)
[2022-01-26 18:29] LABS: Differential Comment SCANNED
== END 2022-01-26 23:59 | disposition home or self-care (01) ==
PROVIDERS: PCP Family Medicine Geriatric Medicine; Referring Provider Family Medicine Geriatric Medicine; Visit Provider Family Medicine Geriatric Medicine
DX: R06.02 Shortness of breath (principal); R63.8 Other symptoms and signs concerning food and fluid intake
CPT/HCPCS: 36415; 71046; 80048; 83880; 85025

== ENCOUNTER 2022-02-16 10:22 | Outpatient (CLI) | payer MEDICARE, SELFPAY | END 2022-02-16 23:59 | disposition home or self-care (01) | LOC: LAB 10:27 | PROVIDERS: PCP Family Medicine Geriatric Medicine; Visit Provider Urology | DX: N30.01 Acute cystitis with hematuria (principal) | CPT/HCPCS: 87086; 87088 ==

== ENCOUNTER → 2022-03-15 | Outpatient (CLI) | payer MEDICARE, SELFPAY ==
[2022-03-15 10:44] LABS: Hematocrit 46.8 % (37-47); Hemoglobin 15.1 g/dL (12.0-15.0); Mean Corp Hgb Conc 32.3 g/dL (32-36); Mean Corpuscular Hgb 32.1 pg (27.0-32.0); Mean Corpuscular Volume 99.6 fL (81-99); Mean Platelet Vol. 10.3 fl (6.2-12.0); Platelet Count 327 K/mm3 (150-450); RBC Distribution Width SD 51.3 fl (35.1-43.9); White Blood Count 13.9 K/mm3 (4.4-11.0)
[2022-03-15 11:23] LABS: Albumin, Serum 2.9 g/dL (3.2-5.0); BUN 15 mg/dL (7-18); BUN/Creat Ratio 7.4 RATIO (10-20); Calcium,Total 8.5 mg/dL (8.5-10.1); Chloride 105 mmol/L (98-107); Creatinine, Serum 2.04 mg/dL (0.55-1.02); EST Glomerular Filtration Rate 26 mL/min (>60); Est Glom Filt Rate - Afr Amer 31 mL/min (>60); Glucose 96 mg/dL (74-106); Phosphorus 3.4 mg/dL (2.5-4.9); Potassium 4.3 mmol/L (3.5-5.1); Sodium Level 138 mmol/L (136-145)
[2022-03-15 11:30] LABS: PTHIN 151.1 pg/mL (18.4-80.1)
[2022-03-15 11:34] LABS: Vitamin D,25 Hydroxy 31.6 ng/mL
== END | disposition home or self-care (01) ==
LOC: LAB 09:44
PROVIDERS: PCP Family Medicine Geriatric Medicine; Referring Provider Internal Medicine Nephrology; Visit Provider Internal Medicine Nephrology
DX: N18.4 Chronic kidney disease, stage 4 (severe) (principal); N25.81 Secondary hyperparathyroidism of renal origin; D63.8 Anemia in other chronic diseases classified elsewhere
CPT/HCPCS: 36415; 80069; 82306; 83970; 85027

== ENCOUNTER → 2022-03-20 | Outpatient (CLI) | payer MEDICARE, SELFPAY | END | disposition home or self-care (01) | LOC: POLAB3 15:35 | PROVIDERS: PCP Family Medicine Geriatric Medicine; Visit Provider Family Medicine Geriatric Medicine | DX: N39.0 Urinary tract infection, site not specified (principal) | CPT/HCPCS: 87077; 87086; 87088; 87186 ==

== ENCOUNTER → 2022-05-02 | Outpatient (CLI) | payer MEDICARE, SELFPAY ==
[2022-05-02 12:36] LABS: Absolute Lymphocyte Count 7.41 X10^3/uL (0.83-4.51); Basophil# 0.08 X10^3/uL; Basophil% 0.5 % (0-1); Eosinophil# 0.09 X10^3/uL; Eosinophils% 0.6 % (0-5); Hematocrit 45.6 % (37-47); Hemoglobin 14.9 g/dL (12.0-15.0); Lymphocyte # 7.41 X10^3/ul (0.83-4.51); Lymphocyte % 47.6 % (19-41); Mean Corp Hgb Conc 32.7 g/dL (32-36); Mean Corpuscular Hgb 32.4 pg (27.0-32.0); Mean Corpuscular Volume 99.1 fL (81-99); Mean Platelet Vol. 10.3 fl (6.2-12.0); Monocyte% 5.8 % (0-10); NRBC Flagged by Analyzer 0 % (0-5); Neutrophil # 7.03 X10^3/uL (2.7-7.7); Neutrophil % 45.2 % (47-70); POSITIVE DIFFERENTIAL YES; Platelet Count 351 K/mm3 (150-450); RBC Distribution Width CV 13.9 % (11.6-14.6); RBC Distribution Width SD 50.5 fl (35.1-43.9); White Blood Count 15.6 K/mm3 (4.4-11.0)
[2022-05-02 12:40] LABS: Differential Indicated SCAN CRITERIA MET
[2022-05-02 13:05] LABS: Vitamin D,25 Hydroxy 44.1 ng/mL
[2022-05-02 13:18] LABS: ALB/GLOB Ratio 0.6 RATIO (0.9-2.4); AST(SGOT) 12 U/L (15-37); Alanine Aminotransfer ALT/SGPT 17 U/L (13-56); Albumin, Serum 2.8 g/dL (3.2-5.0); Alkaline Phosphatase 104 U/L (45-117); Anion Gap 7 (5-15); BUN 14 mg/dL (7-18); BUN/Creat Ratio 6.8 RATIO (10-20); Calcium,Total 8.6 mg/dL (8.5-10.1); Chloride 108 mmol/L (98-107); Cholesterol 188 mg/dL (200); Creatinine, Serum 2.05 mg/dL (0.55-1.02); EST Glomerular Filtration Rate 26 mL/min (>60); Est Glom Filt Rate - Afr Amer 31 mL/min (>60); Globulin 4.8 g/dL (2.2-4.2); Glucose 99 mg/dL (74-106); High Density Lipoprotein 43 mg/dL; Potassium 4.3 mmol/L (3.5-5.1); Protein, Total 7.6 g/dL (6.4-8.2); Sodium Level 140 mmol/L (136-145); Thyroid Stim Hormone (TSH) 3.28 uIU/mL (0.358-3.74); Triglycerides 97 mg/dL; Very Low Density Lipoprotein 19 mg/dL (5-40)
== END | disposition home or self-care (01) ==
LOC: POLAB3 10:43
PROVIDERS: PCP Family Medicine Geriatric Medicine; Visit Provider Family Medicine Geriatric Medicine
DX: E55.9 Vitamin D deficiency, unspecified (principal); E78.5 Hyperlipidemia, unspecified; I10 Essential (primary) hypertension
CPT/HCPCS: 36415; 80053; 80061; 82306; 84443; 85025

== ENCOUNTER → 2022-05-12 | Outpatient (CLI) | payer MEDICARE, SELFPAY ==
--- NOTE | 2022-05-12 12:05 | RAD_ITS ---
EXAM: XR CHEST, 2 VIEWS CLINICAL INDICATION: SOB TECHNIQUE: Frontal and lateral views of the chest. This report was created using [employer] report generation technology. COMPARISON: 01/26/2022 FINDINGS: LUNGS AND PLEURAL SPACES: Unremarkable. No consolidation or edema. No pneumothorax. No effusion. HEART: Unremarkable. Cardiac silhouette not enlarged. MEDIASTINUM: Central airways and mediastinal contour are unremarkable. BONES/JOINTS: Unremarkable. SOFT TISSUES: Unremarkable. RAD/Chest PA and Lateral IMPRESSION: No radiographic evidence of acute cardiopulmonary disease. Electronically Signed: London Valentin MD at 3:08 EDT ,
--- NOTE | 2022-05-12 12:16 | CPS ---
Pt had order for FLU/RSV/COVID but declined flu and rsv.
== END | disposition home or self-care (01) ==
PROVIDERS: PCP Family Medicine Geriatric Medicine; Referring Provider Family Medicine Geriatric Medicine; Visit Provider Family Medicine Geriatric Medicine
DX: R68.83 Chills (without fever) (principal); R06.02 Shortness of breath
CPT/HCPCS: 71046; 87635; C9803; U0003; U0005

== ENCOUNTER → 2022-07-21 | Outpatient (CLI) | payer MEDICARE, SELFPAY ==
[2022-07-21 11:34] LABS: Hematocrit 46.8 % (37-47); Hemoglobin 15.3 g/dL (12.0-15.0); Mean Corp Hgb Conc 32.7 g/dL (32-36); Mean Corpuscular Hgb 32.6 pg (27.0-32.0); Mean Corpuscular Volume 99.8 fL (81-99); Mean Platelet Vol. 9.9 fl (6.2-12.0); Platelet Count 327 K/mm3 (150-450); RBC Distribution Width CV 14.2 % (11.6-14.6); RBC Distribution Width SD 52.1 fl (35.1-43.9); Red Blood Count 4.69 M/mm3 (4.2-5.4); White Blood Count 13.8 K/mm3 (4.4-11.0)
[2022-07-21 12:06] LABS: PTHIN 217.2 pg/mL (18.4-80.1)
[2022-07-21 12:07] LABS: Albumin, Serum 2.8 g/dL (3.2-5.0); BUN 21 mg/dL (7-18); BUN/Creat Ratio 11.4 RATIO (10-20); Calcium,Total 8.5 mg/dL (8.5-10.1); Chloride 107 mmol/L (98-107); Creatinine, Serum 1.85 mg/dL (0.55-1.02); EST Glomerular Filtration Rate 29 mL/min (>60); Est Glom Filt Rate - Afr Amer 35 mL/min (>60); Glucose 100 mg/dL (74-106); Phosphorus 3.2 mg/dL (2.5-4.9); Potassium 3.9 mmol/L (3.5-5.1); Sodium Level 141 mmol/L (136-145)
== END | disposition home or self-care (01) ==
LOC: LAB 09:31
PROVIDERS: PCP Family Medicine Geriatric Medicine; Referring Provider Internal Medicine Nephrology; Visit Provider Internal Medicine Nephrology
DX: N18.4 Chronic kidney disease, stage 4 (severe) (principal); N25.81 Secondary hyperparathyroidism of renal origin; D63.1 Anemia in chronic kidney disease
CPT/HCPCS: 36415; 80069; 83970; 85027

== ENCOUNTER 2022-07-28 05:43 | Day surgery (SDC) | payer MEDICARE, SELFPAY ==
[2022-07-28] VITALS (7 sets, daily range): BP systolic 100–135; BP diastolic 55–96; PULSE 71–77; RESP 16; TEMP 36.7–37.5; O2SAT 96–99; BMI 29.7
[2022-07-28] MEDS: Cefazolin 2 GM in 0.9% Normal Saline 100 ML IV (07:30)
[2022-07-28] MEDS: Lidocaine Jelly 2% 20 ML Syringe (URO-JET) 1 APPLIC (07:47)
--- NOTE | 2022-07-28 08:02 | HP.PCM_ITS ---
HPI - General HPI Narrative TODD HERRERA, is a 71 F who presents for bilateral stent change for obstruction from ureteral obstruction caused by radiation therapy for cancer long time ago PFSH Medical History Acute diarrhea LULY (acute kidney injury) Asthma Dunbar's palsy Bilateral hydronephrosis Bladder disease Blood disorder Bruising Cancer Cardiology follow-up encounter Cervical cancer Chronic renal failure, stage 4 (severe) Easy bruising Essential hypertension Former smoker Gout High anion gap metabolic acidosis History of biliary stent insertion History of cervical cancer History of Clostridium difficile infection History of COVID-19 History of irregular heartbeat History of renal disease Hx of cataract Hx of echocardiogram Hx of vertigo Hyperlipidemia Hypertension Hypokalemia Hyponatremia Leg cramps Lymphocytosis Mild intermittent asthma Near syncope Open wound Problem with dialysis access Sepsis Status post placement of implantable loop recorder (~03/29/20) Thyroid disease Urinary incontinence Wears dentures Home Medications albuterol sulfate 90 mcg/actuation aerosol inhaler (Ventolin HFA) 2 puff inhalation Q6H PRN Sob &/Or Wheezing 07/25/18 [History Last Taken 12/30/21 10:00] metoprolol tartrate 50 mg tablet 50 mg PO BID blood pressure 01/27/19 [History Last Taken 07/28/22] levothyroxine 25 mcg tablet 25 mcg PO DAILY thyroid 01/09/20 [History Last Taken 07/28/22] potassium chloride 20 mEq tablet,extended release(part/cryst) 20 meq PO BID supplement 09/01/20 [History Last Taken 09/23/20] cholecalciferol (vitamin D3) 1,250 mcg (50,000 unit) capsule 1,250 mcg PO QMONTH #1 cap 06/02/21 [Rx Last Taken Unknown] amlodipine 2.5 mg tablet 2.5 mg PO DAILY BP #90 tabs 08/12/21 [Rx Last Taken 07/28/22] ipratropium bromide 42 mcg (0.06 %) nasal spray 1 spray intranasal BID 11/23/21 [History Last Taken 11/29/21 07:00] amoxicillin 500 mg capsule 1,000 mg PO TID 07/19/22 [History Last Taken Unknown] Allergy/AdvReac Type Severity Reaction Status Date / Time pravastatin Allergy Severe Chest Verified 07/28/22 06:33 tightness procaine [From Novocain] Allergy Severe NEEDS Verified 07/28/22 06:33 FOLLOW-UP sulfamethoxazole Allergy Severe Shortness Verified 07/28/22 06:33 [From Bactrim] of breath trimethoprim [From Bactrim] Allergy Severe Shortness Verified 07/28/22 06:33 of breath Prqkdtw-[id number] Reductase Allergy Anaphylaxis Verified 07/28/22 06:33 Inhibitor clindamycin AdvReac Severe unsure of Verified 07/28/22 06:33 reaction methylprednisolone AdvReac Severe Pain in Verified 07/28/22 06:33 joints levofloxacin [From Levaquin] AdvReac UNSURE OF Verified 07/28/22 06:33 REACTION Family History Father , 32 yrs old CAD (coronary artery disease) History of coronary artery bypass surgery Surgical History (Updated 07/19/22 @ 10:16 by Candy Loera) History of arteriovenostomy for renal dialysis (~09/2021) History of cardiac catheterization (~01/08/18) History of cardiac catheterization History of cholecystectomy History of excision of mass History of hysterectomy History of loop recorder history of radium implant Hx of cystoscopy S/P arteriovenous (AV) fistula creation Social History household members: spouse and children number of children: 6 current occupational status: retired history of recent travel: No Smoking Status: Former smoker second hand exposure: No alcohol intake: never substance use type: does not use what type of physical activity do you participate in: walking saurabh/buddhism: Non-Uatsdin/Independent seatbelt use: always do you feel safe at home: Yes additional social history: - Fernando Vital Signs Vital Signs Vital Signs: 07/28/22 06:35 07/28/22 06:35 Temperature 99.5 F H Temperature Source Temporal Pulse Rate 71 Respiratory Rate 16 Respiratory Pattern Normal Blood Pressure 135/78 H Blood Pressure Mean 97 Blood Pressure Source Monitor Blood Pressure Position Semi-Fowlers Blood Pressure Location Right Arm Pulse Ox 96 Oxygen Delivery Method Room Air Weight Weight: 88.723 kg Body Mass Index (BMI) 29.7
--- NOTE | 2022-07-28 08:03 | DCINST_ITS ---
Discharge Instructions Diet Discharge Diet: No restrictions and Light diet - advance as tolerated Activity Discharge Activity: Return to Normal Activity Follow Up Care Please Follow Up With: Joshua Strickland MD When: Call for an appointment in 3 months Test Results: Test results from this visit will be discussed in further detail at your follow- up appointment, if applicable. Discharge Plan Admission Primary Reason for Your Visit: bilateral stent changes Attending Provider: Joshua Strickland Primary Care Provider: Gerardo García Chi Discharge Orders/Prescriptions Prescriptions: Continued albuterol sulfate [Ventolin HFA] 90 mcg/actuation HFA aerosol inhaler 2 puff INHALATION Q6H PRN (Reason: Sob &/Or Wheezing) metoprolol tartrate 50 MG tablet 50 mg PO BID Label Comments: TAKE 1 TABLET BY MOUTH TWICE DAILY levothyroxine 25 MCG tablet 25 mcg PO DAILY potassium chloride 20 MEQ tablet,ER particles/crystals 20 meq PO BID ipratropium bromide 42 mcg (0.06 %) spray,non-aerosol 1 spray INTRANASAL BID amoxicillin 500 mg capsule 1,000 mg PO TID Label Comments: TAKE 1 CAPSULE BY MOUTH THREE TIMES DAILY cholecalciferol (vitamin D3) 1,250 mcg (50,000 unit) capsule 1,250 mcg PO QMONTH Qty: 1 0RF amlodipine 2.5 mg tablet 2.5 mg PO DAILY Qty: 90 3RF Referrals / Follow Up: Joshua Strickland MD [Med Staff - Active Staff] - Gerardo García Chi, MD [Primary Care Provider] - Disposition Disposition (needs filled in before D/C Order can be placed): Home, Self Care
--- NOTE | 2022-07-28 08:03 | PCM.OPRPT ---
Report of Operation Date of Procedure: 07/28/22 Pre-Operative Diagnosis: Bilateral ureteral ureteral obstruction from radiation therapy long time ago scarred down ureters Post-Operative Diagnosis: Same Surgery/Procedure Performed:: Cystoscopy, right retrograde pyelogram interpretation fluoroscopic images and right stent placement, left retrograde pyelogram interpretation fluoroscopic images and left stent placement Description of Surgical Findings:: Patient was taken back to the operating room after induction of general anesthesia, the patient was placed in dorsolithotomy position. The urethra and genitals were prepped and draped in usual sterile fashion. Using a 21 [place] rigid cystourethroscope the entire length of the urethra was normal then went into the bladder. Identified the trigone the left and right ureteral orifice. I then cannulated the Left orifice and advanced a wire up into the kidney. I then backloaded a 5 [place] open ended catheter over the wire and injected contrast to delineate the anatomy. After the retrograde was performed I then used fluoroscopic images and guidance to advanced a wire up into the kidney and over the 0.038 glidewire I advanced a 6 [place] by 26 cm double pigtail stent. I then pulled the 0.038 Glidewire off and the stent coiled in the kidney bladder good position. I then cannulated the Right orifice and advanced a wire up into the kidney. I then backloaded a 5 [place] open ended catheter over the wire and injected contrast to delineate the anatomy. After the retrograde was performed I then used fluoroscopic images and guidance to advanced a wire up into the kidney and over the 0.038 glidewire I advanced a 6 [place] by 26 cm double pigtail stent. I then pulled the 0.038 Glidewire off and the stent coiled in the kidney bladder good position. The bladder was then drained. We confirmed the position of the stent by fluoroscopy. Patient anesthetic was reversed and was taken back to the PACU in good condition. Surgeon: Joshua Strickland Type of Anesthesia: General Drains: 6 [place] by 26 cm stents Admit VTE Documentation VTE Present on Admission: No VTE Mechan Device Prophylaxis: SCD's
== END 2022-07-28 08:57 | disposition home or self-care (01) ==
LOC: SDC 05:47 → AC 05:47
PROVIDERS: PCP Family Medicine Geriatric Medicine; Visit Provider Urology
PROC: (CPT 52332; principal; 2022-07-28 07:20)
DX: N13.1 Hydronephrosis with ureteral stricture, not elsewhere classified (principal); Z99.2 Dependence on renal dialysis; N18.4 Chronic kidney disease, stage 4 (severe); I73.9 Peripheral vascular disease, unspecified; J45.20 Mild intermittent asthma, uncomplicated; I12.9 Hypertensive chronic kidney disease with stage 1 through stage 4 chronic kidney disease, or unspecified chronic kidney disease; M10.9 Gout, unspecified; Z86.16 Personal history of COVID-19; E78.5 Hyperlipidemia, unspecified; Z85.41 Personal history of malignant neoplasm of cervix uteri; E03.9 Hypothyroidism, unspecified; Z86.19 Personal history of other infectious and parasitic diseases; Z79.899 Other long term (current) drug therapy; Z87.891 Personal history of nicotine dependence; Z95.818 Presence of other cardiac implants and grafts; Z92.3 Personal history of irradiation
CPT/HCPCS: 52332; 00910; 76000; J7120; J2405

== ENCOUNTER 2022-07-29 12:23 | Inpatient (IN) | payer MEDICARE, SELFPAY ==
[2022-07-29] VITALS (8 sets, daily range): BP systolic 103–149; BP diastolic 60–88; PULSE 89–142; RESP 16–18; TEMP 36.9–37.8; O2SAT 91–99; BMI 29.6; BMI 29.7
--- NOTE | 2022-07-29 12:54 | EX.ED.DYSGE1 ---
HPI History of Present Illness Chief Complaint: Fever Detail of Chief Complaint: Fever that started last evening Informant: patient Narrative Narrative: Patient presents the emergency department complaint of a fever that started last evening. Patient denies of chills. Patient did have some nausea and some vomiting. She denies diarrhea. She denies abdominal pain. She denies any significant cough. She denies sick contacts. Patient has had the COVID-vaccine. Patient tells me that yesterday she was seen by her urologist and had ureteral stents replaced. She does make urine and has had no dysuria. She is currently not on dialysis. Prior similar symptoms: No PFSH PFSH Medical History (Updated 07/29/22 @ 15:[address] Lexa Hull, DO) Acute diarrhea LULY (acute kidney injury) Asthma Dunbar's palsy Bilateral hydronephrosis Bladder disease Blood disorder Bruising Cancer Cardiology follow-up encounter Cervical cancer Chronic renal failure, stage 4 (severe) Easy bruising Essential hypertension Former smoker Gout High anion gap metabolic acidosis History of biliary stent insertion History of cervical cancer History of Clostridium difficile infection History of COVID-19 History of irregular heartbeat History of renal disease Hx of cataract Hx of echocardiogram Hx of vertigo Hyperlipidemia Hypertension Hypokalemia Hyponatremia Leg cramps Lymphocytosis Mild intermittent asthma Near syncope Open wound Problem with dialysis access Sepsis Status post placement of implantable loop recorder (~03/29/20) Thyroid disease Urinary incontinence Wears dentures Home Medications albuterol sulfate 90 mcg/actuation aerosol inhaler (Ventolin HFA) 2 puff inhalation Q6H PRN Sob &/Or Wheezing 07/25/18 [History Last Taken 12/30/21 10:00] metoprolol tartrate 50 mg tablet 50 mg PO BID blood pressure 01/27/19 [History Last Taken 07/28/22] levothyroxine 25 mcg tablet 25 mcg PO DAILY thyroid 01/09/20 [History Last Taken 07/28/22] potassium chloride 20 mEq tablet,extended release(part/cryst) 20 meq PO BID supplement 09/01/20 [History Last Taken 09/23/20] cholecalciferol (vitamin D3) 1,250 mcg (50,000 unit) capsule 1,250 mcg PO QMONTH #1 cap 06/02/21 [Rx Last Taken Unknown] amlodipine 2.5 mg tablet 2.5 mg PO DAILY BP #90 tabs 08/12/21 [Rx Last Taken 07/28/22] ipratropium bromide 42 mcg (0.06 %) nasal spray 1 spray intranasal BID 11/23/21 [History Last Taken 11/29/21 07:00] amoxicillin 500 mg capsule 1,000 mg PO TID 07/19/22 [History Last Taken Unknown] Allergy/AdvReac Type Severity Reaction Status Date / Time pravastatin Allergy Severe Chest Verified 07/29/22 12:24 tightness procaine [From Novocain] Allergy Severe NEEDS Verified 07/29/22 12:24 FOLLOW-UP sulfamethoxazole Allergy Severe Shortness Verified 07/29/22 12:24 [From Bactrim] of breath trimethoprim [From Bactrim] Allergy Severe Shortness Verified 07/29/22 12:24 of breath [id number] Reductase Allergy Anaphylaxis Verified 07/29/22 12:24 Inhibitor clindamycin AdvReac Severe unsure of Verified 07/29/22 12:24 reaction methylprednisolone AdvReac Severe Pain in Verified 07/29/22 12:24 joints levofloxacin [From Levaquin] AdvReac UNSURE OF Verified 07/29/22 12:24 REACTION Family History Father , 32 yrs old CAD (coronary artery disease) History of coronary artery bypass surgery Surgical History (Updated 07/19/22 @ 10:16 by Candy Loera) History of arteriovenostomy for renal dialysis (~09/2021) History of cardiac catheterization (~01/08/18) History of cardiac catheterization History of cholecystectomy History of excision of mass History of hysterectomy History of loop recorder history of radium implant Hx of cystoscopy S/P arteriovenous (AV) fistula creation Social History household members: spouse and children number of children: 6 current occupational status: retired history of recent travel: No Smoking Status: Former smoker second hand exposure: No alcohol intake: never substance use type: does not use what type of physical activity do you participate in: walking saurabh/druze: Non-Yazidi/Independent seatbelt use: always do you feel safe at home: Yes additional social history: - Fernando PALOMO ROS ED Review of Systems ROS Unobtainable: other Constitutional Constitutional ED: Reports chills, fever(s) and lethargy; Denies sweats or weight loss Eyes Eyes: Denies blurry vision, change in vision or diplopia ENT ENT ED: Denies rhinorrhea or sore throat Cardiovascular Cardiovascular: Reports racing heartbeat; Denies chest pain, orthopnea or palpitations Respiratory/Chest Respiratory/Chest: Denies cough, dyspnea, dyspnea on exertion, orthopnea or sputum Gastrointestinal Gastrointestinal: Denies abdominal pain, diarrhea, nausea or vomiting Genitourinary Genitourinary ED: Denies dysuria, hematuria or urinary frequency Musculoskeletal Musculoskeletal: Denies arthralgias, back pain, myalgias or neck pain Integumentary Denies abscess, Abrasions or rash Neurologic Neurologic: Denies headache(s) or weakness Psychiatric Psychiatric: Denies anxiety, depression or suicidal thoughts Endocrine Endocrinology: Denies polydipsia, polyphagia or polyuria Hematologic/Lymphatic Hematologic/Lymphatic: Denies easy bleeding, easy bruising or lymphadenopathy Allergic/Immunologic Allergic/Immunologic ED: Denies mouth swelling, tongue swelling or urticaria EXAM Physical Exam Const Vital Signs: 07/29/22 12:24 07/29/22 12:38 07/29/22 15:25 Temperature 100.1 F H 99.4 F H Temperature Source Temporal Oral Pulse Rate 142 H 104 H Respiratory Rate 18 16 Respiratory Effort Normal Non-Labored Respiratory Pattern Normal Blood Pressure 148/88 H 149/69 H Blood Pressure Mean 108 95 Pulse Ox 99 99 Oxygen Delivery Method Room Air Room Air 07/29/22 15:28 Temperature 99.4 F H Temperature Source Oral Pulse Rate 104 H Respiratory Rate 16 Respiratory Effort Respiratory Pattern Blood Pressure 149/69 H Blood Pressure Mean 95 Pulse Ox 99 Oxygen Delivery Method Room Air Positive well nourished and well developed General Appearance ED: well developed and NAD HEENT Reports TM's clear and moist mucous membranes normocephalic and atraumatic; Negative for trauma or tenderness Tympanic Membrane ED: Yes TM's clear Eyes PERRL and EOMs intact bilaterally General Eye ED: Negative for pale conjunctiva or scleral icterus Neck no lymphadenopathy, supple and no JVD General: Negative for tenderness Chest Wall inspection of chest normal and palpation of chest normal Chest: Negative for tenderness Resp normal respiratory effort and clear to auscultation bilaterally Effort and Inspection: Negative for respiratory distress or pain with movement Auscultation: Negative for rhonchi, wheezes or diminished lung sounds Cardio regular rate, regular rhythm, S1 normal heart sound, S2 normal heart sound and no murmurs Peripheral Pulses: pulses 2+ throughout GI normal to inspection, nondistended, normoactive bowel sounds, soft to palpation, non-tender, non-distended and no masses Back/Spine no CVA tenderness and no thoracic nor lumbar tenderness Extremity normal to inspection General Extremety ED: Negative for edema General Extremity: Negative for edema Neuro oriented x3, CN's II-XII intact bilaterally, no sensory deficits noted and gait normal Sensorium / Orientation: awake, alert, oriented to person, oriented to place and oriented to time Motor Exam: strength 5/5 throughout and strength abnormal Psych mental status grossly normal Skin no rashes or lesions noted and no wounds MDM MDM MDM Narrative Medical decision making narrative: IV line established on arrival. Blood cultures ordered. Patient has a white count of 23.8. Chemistries showed a BUN of 16 and creatinine 2.19. Lactate was 2.6. Rapid COVID-19 test was negative. Chest x-ray was unremarkable. Urinalysis obtained showed 500 excite esterase and 25-50 WBCs as well as +1 bacteria. I did send off urine culture. Patient was started on Zosyn empirically 4.5 g IV. Case will be discussed with hospitalist evaluate patient for admission. Lab Data Attestation: I reviewed the patient's lab results. Labs: Laboratory Results - last 24 hr 07/29/22 07/29/22 07/29/22 13:05 13:05 13:05 WBC 23.8 H RBC 4.65 Hgb 15.2 H Hct 46.1 MCV 99.1 H MCH 32.7 H MCHC 33.0 RDW Std Deviation 52.5 H RDW Coeff of [place] 14.5 Plt Count 284 MPV 9.6 Immature Gran % (Auto) 0.900 Neut % (Auto) 86.7 H Lymph % (Auto) 8.6 L [place] % (Auto) 3.4 Eos % (Auto) 0.0 Baso % (Auto) 0.4 Absolute Neuts (auto) 20.6 H Absolute Lymphs (auto) 2.05 Nucleated RBC % 0 Differential Comment SCANNED Sodium 137 Potassium 4.3 Chloride 103 Carbon Dioxide 25.0 Anion Gap 9 BUN 16 Creatinine 2.19 H Estim Creat Clear Calc 24.46 Est GFR (MDRD) Af Amer 29 L Est GFR (MDRD) Non-Af 24 L BUN/Creatinine Ratio 7.3 L Glucose 104 Lactic Acid 2.6 H* Calcium 8.6 Urine Color Urine Clarity Urine pH Ur Specific [place] Urine Protein Urine Glucose (UA) Urine Ketones Urine Occult Blood Urine Nitrite Urine Bilirubin Urine Urobilinogen Ur Leukocyte Esterase Urine RBC Urine WBC Ur Squamous Epith Cells Urine Bacteria Urine Mucus 07/29/22 14:50 WBC RBC Hgb Hct MCV MCH MCHC RDW Std Deviation RDW Coeff of [place] Plt Count MPV Immature Gran % (Auto) Neut % (Auto) Lymph % (Auto) [place] % (Auto) Eos % (Auto) Baso % (Auto) Absolute Neuts (auto) Absolute Lymphs (auto) Nucleated RBC % Differential Comment Sodium Potassium Chloride Carbon Dioxide Anion Gap BUN Creatinine Estim Creat Clear Calc Est GFR (MDRD) Af Amer Est GFR (MDRD) Non-Af BUN/Creatinine Ratio Glucose Lactic Acid Calcium Urine Color Yellow Urine Clarity Clear Urine pH 6.5 Ur Specific [place] 1.010 Urine Protein 500 H Urine Glucose (UA) Normal Urine Ketones Negative Urine Occult Blood 250 H Urine Nitrite Negative Urine Bilirubin Negative Urine Urobilinogen Normal Ur Leukocyte Esterase 500 H Urine RBC 5-10 SEEN Urine WBC 25-50 SEEN Ur Squamous Epith Cells 0-5 SEEN Urine Bacteria 1+ Urine Mucus 0 SEEN Radiography Diagnostic Testing: Clinical Impression(s) from Imaging Studies Chest X-Ray 07/29/22 13:54 IMPRESSION: No acute pulmonary process, no interval change Electronically Signed: Aries Owens MD at 14:10 EDT Reading Location ID and State: [facility] / [place] , Service support , Discharge Plan Dx/Rx/DC Orders Clinical Impression: Acute UTI, Tachycardia, Sepsis, Chronic renal insufficiency Disposition Disposition: Acute Care [facility]
[2022-07-29 13:22] LABS: Absolute Lymphocyte Count 2.05 X10^3/uL (0.83-4.51); Absolute Neutrophil Count 20.6 X10^3/uL (2.0-7.7); Basophil% 0.4 % (0-1); Hematocrit 46.1 % (37-47); Hemoglobin 15.2 g/dL (12.0-15.0); Lymphocyte # 2.05 X10^3/ul (0.83-4.51); Lymphocyte % 8.6 % (19-41); Mean Corpuscular Hgb 32.7 pg (27.0-32.0); Mean Corpuscular Volume 99.1 fL (81-99); Mean Platelet Vol. 9.6 fl (6.2-12.0); Monocyte# 0.82 X10^3/uL; Monocyte% 3.4 % (0-10); NRBC Flagged by Analyzer 0 % (0-5); Neutrophil # 20.63 X10^3/uL (2.7-7.7); Neutrophil % 86.7 % (47-70); POSITIVE DIFFERENTIAL YES; Platelet Count 284 K/mm3 (150-450); RBC Distribution Width CV 14.5 % (11.6-14.6); RBC Distribution Width SD 52.5 fl (35.1-43.9); Red Blood Count 4.65 M/mm3 (4.2-5.4); White Blood Count 23.8 K/mm3 (4.4-11.0)
[2022-07-29] MEDS: 0.9% Normal Saline 1,000 ML 150 ML IV ×2 (13:27→21:35)
[2022-07-29 13:42] LABS: Anion Gap 9 (5-15); BUN 16 mg/dL (7-18); BUN/Creat Ratio 7.3 RATIO (10-20); Calcium,Total 8.6 mg/dL (8.5-10.1); Chloride 103 mmol/L (98-107); Creatinine, Serum 2.19 mg/dL (0.55-1.02); EST Glomerular Filtration Rate 24 mL/min (>60); Est Glom Filt Rate - Afr Amer 29 mL/min (>60); Estimated Creatinine Clearance 24.46 ml/min; Glucose 104 mg/dL (74-106); Potassium 4.3 mmol/L (3.5-5.1); Sodium Level 137 mmol/L (136-145)
[2022-07-29 13:48] LABS: Differential Indicated SCAN CRITERIA MET
[2022-07-29 13:51] LABS: Lactic Acid 2.6 mmol/L (0.4-1.9)
--- NOTE | 2022-07-29 13:54 | RAD_ITS ---
STUDY: X-RAY CHEST REASON FOR EXAM: Female, 71 years old. Fever and cough TECHNIQUE: Single AP portable view of the chest. COMPARISON: 01/26/2022 FINDINGS: Stable appearance of the left-sided property assessment monitor The lungs are clear and expanded. There is no demonstrated pleural abnormality. Normal size heart. Normal mediastinum and wayne. Normal visualized pulmonary arteries. Normal visualized aortic arch and descending thoracic aorta. There are diffuse degenerative changes of the visualized thoracic spine. There is degenerative osteoarthritis of the bilateral shoulders. There is no demonstrated abnormality of the visualized soft tissue structures of the upper abdomen. RAD/Chest 1 View (Portable) IMPRESSION: No acute pulmonary process, no interval change Electronically Signed: Aries Owens MD at 14:10 EDT ,
[2022-07-29 14:17] LABS: Differential Comment SCANNED
[2022-07-29 14:54] LABS: Mucous, Urine 0 SEEN /hpf (<or=2+)
[2022-07-29 15:00] LABS: Color, Urine Yellow (Yellow); Glucose, Dipstick Normal (Normal); Ketone-Dipstick Negative (Negative); Leukocyte Esterase-Dipstick 500 /ul (Negative); Nitrite-Dipstick Negative (Negative); Occult Blood-Urine 250 /ul (Negative); Protein-Dipstick 500 mg/dl (Negative); Urine Bilirubin Dipstick Negative (Negative); Urine Clarity Clear (Clear); Urine Urobilinogen Normal (Normal); Urine pH 6.5 (5.0 - 8.0)
[2022-07-29 15:18] LABS: Bacteria 1+ /hpf (None Seen); Red Blood Cells-Urine 5-10 SEEN /hpf (0-5); Squamous Epithelial Cells - UA 0-5 SEEN /hpf (5-10); White Blood Cells 25-50 SEEN /hpf (0-5)
--- NOTE | 2022-07-29 15:32 | NURSING ---
DR VALERIO FOR DR CALLE
--- NOTE | 2022-07-29 15:36 | HP.PCM.HOS_ITS ---
HPI - General General Date of Admission: 07/29/22 Date of Service: 07/29/22 Chief Complaint: Fever, N/V, recent 07/28/22 BL ureteral stent replacement. HPI Narrative The patient is a 71 y/o F w/ PMHx: Allergic rhinitis, Hx Chronic wounds, Hypo thyroidism, Asthma, Hx Cervical cancer, CKD stage IV with AVF in place, HTN, HLD, Former tobacco use who presents to the [facility] ED on 07/29/22 with history of onset fever starting the evening prior with nausea and emesis with recent 07/28/22 Dr. Strickland directed cystoscopy, right retrograde pyelogram interpretation fluoroscopic images and right stent placement, left retrograde pyelogram interpretation fluoroscopic images and left stent placement secondary to prior history of BL ureteral ureteral obstruction from radiation therapy long time ago scarred down ureters reporting that she does make urine although she denies any recent dysuria and denies any current ongoing dialysis prompting eventual ED evaluation. Most recent urine culture noted from 03/20/2022 with Pseudomonas and mixed gram-positive organisms although Pseudomonas was only 25,000-50,000 the certainly could be chronic colonization however of note was resistant to ciprofloxacin and levofloxacin but susceptible to cefepime, gentamicin, Zosyn and tobramycin. Work-up in the ED included T 100.1, HR 142, BP 148/88, RR 18, 99% on RA, CBC w/ WBC 23.8, Hgb 15.2, Plts 284 with L shift, BMP with BUN/Cr 16/2.19, LA 2.6, UA w/ specific remedy 1.010, protein 500, occult blood 250, negative nitrite, leukocyte esterase 500, urine to BCs 25-50 with 1+ urine bacteria w/ UCx pending per ED, blood culture x2 pending per ED, rapid COVID antigen negative, CXR with no acute cardiopulmonary findings, Bld Cx x 2 pending per ED. In the ED patient administered NS MIVF and zosyn. [facility] Medical History (Updated 07/29/22 @ 15:[address] Lexa Hull, ) Acute diarrhea LULY (acute kidney injury) Asthma Dunbar's palsy Bilateral hydronephrosis Bladder disease Blood disorder Bruising Cancer Cardiology follow-up encounter Cervical cancer Chronic renal failure, stage 4 (severe) Easy bruising Essential hypertension Former smoker Gout High anion gap metabolic acidosis History of biliary stent insertion History of cervical cancer History of Clostridium difficile infection History of COVID-19 History of irregular heartbeat History of renal disease Hx of cataract Hx of echocardiogram Hx of vertigo Hyperlipidemia Hypertension Hypokalemia Hyponatremia Leg cramps Lymphocytosis Mild intermittent asthma Near syncope Open wound Problem with dialysis access Sepsis Status post placement of implantable loop recorder (~03/29/20) Thyroid disease Urinary incontinence Wears dentures Home Medications albuterol sulfate 90 mcg/actuation aerosol inhaler (Ventolin HFA) 2 puff inhalation Q6H PRN Sob &/Or Wheezing 07/25/18 [History Last Taken 12/30/21 10:00] metoprolol tartrate 50 mg tablet 50 mg PO BID blood pressure 01/27/19 [History Last Taken 07/28/22] levothyroxine 25 mcg tablet 25 mcg PO DAILY thyroid 01/09/20 [History Last Taken 07/28/22] potassium chloride 20 mEq tablet,extended release(part/cryst) 20 meq PO BID supplement 09/01/20 [History Last Taken 09/23/20] cholecalciferol (vitamin D3) 1,250 mcg (50,000 unit) capsule 1,250 mcg PO QMONTH #1 cap 06/02/21 [Rx Last Taken Unknown] amlodipine 2.5 mg tablet 2.5 mg PO DAILY BP #90 tabs 08/12/21 [Rx Last Taken 07/28/22] ipratropium bromide 42 mcg (0.06 %) nasal spray 1 spray intranasal BID 11/23/21 [History Last Taken 11/29/21 07:00] amoxicillin 500 mg capsule 1,000 mg PO TID 07/19/22 [History Last Taken Unknown] Allergy/AdvReac Type Severity Reaction Status Date / Time pravastatin Allergy Severe Chest Verified 07/29/22 12:24 tightness procaine [From Novocain] Allergy Severe NEEDS Verified 07/29/22 12:24 FOLLOW-UP sulfamethoxazole Allergy Severe Shortness Verified 07/29/22 12:24 [From Bactrim] of breath trimethoprim [From Bactrim] Allergy Severe Shortness Verified 07/29/22 12:24 of breath [id number]-[id number]-[id number] Reductase Allergy Anaphylaxis Verified 07/29/22 12:24 Inhibitor clindamycin AdvReac Severe unsure of Verified 07/29/22 12:24 reaction methylprednisolone AdvReac Severe Pain in Verified 07/29/22 12:24 joints levofloxacin [From Levaquin] AdvReac UNSURE OF Verified 07/29/22 12:24 REACTION Family History (Updated 07/29/22 @ 15:[address] Sammie Ruiz MD) Father , 32 yrs old CAD (coronary artery disease) History of coronary artery bypass surgery Mother Cancer Lung CA, Hx tobacco use. Surgical History (Updated 07/19/22 @ 10:16 by Candy Loera) History of arteriovenostomy for renal dialysis (~09/2021) History of cardiac catheterization (~01/08/18) History of cardiac catheterization History of cholecystectomy History of excision of mass History of hysterectomy History of loop recorder history of radium implant Hx of cystoscopy S/P arteriovenous (AV) fistula creation Social History household members: spouse and children number of children: 6 current occupational status: retired history of recent travel: No Smoking Status: Former smoker second hand exposure: No alcohol intake: never substance use type: does not use what type of physical activity do you participate in: walking saurabh/gnosticism: Non-Gnosticist/Independent seatbelt use: always do you feel safe at home: Yes additional social history: - Fernando PALOMO Narrative Admission Review of Systems: CONSTITUTIONAL: No weight loss, + fever, chills, weakness or fatigue. HEENT: Eyes: No visual loss, blurred vision, double vision or yellow sclerae. Ears, Nose, Throat: No hearing loss, sneezing, congestion, runny nose or sore throat. SKIN: No rash or itching, lesions, wounds. CARDIOVASCULAR: No chest pain, chest pressure or chest discomfort, palpitations, edema, orthopnea, syncopal events. RESPIRATORY: No shortness of breath, cough or sputum, wheezing, hemoptysis. GASTROINTESTINAL: + anorexia, nausea, vomiting, No diarrhea, abdominal pain, melena, BRBPR. GENITOURINARY: No dysuria, frequency, urgency or retention, but cannot state color of her urine of note, says she has not looked as UA w/ + PRBC notable. NEUROLOGICAL: No headache, dizziness, syncope, paralysis, ataxia, numbness or tingling in the extremities, focal weakness, change in bowel or bladder control, seizure. MUSCULOSKELETAL: + muscle, back pain, joint pain or stiffness. HEMATOLOGIC: + anemia, bleeding or bruising. LYMPHATICS: No enlarged nodes. No history of splenectomy. PSYCHIATRIC: No history of depression or anxiety. ENDOCRINOLOGIC: + reports of sweating, cold. No polyuria or polydipsia. ALLERGIES:+ history of asthma, hives, rhinitis. Vital Signs Vital Signs Vital Signs: 07/29/22 12:24 07/29/22 12:38 07/29/22 15:25 Temperature 100.1 F H 99.4 F H Temperature Source Temporal Oral Pulse Rate 142 H 104 H Respiratory Rate 18 16 Respiratory Effort Normal Non-Labored Respiratory Pattern Normal Blood Pressure 148/88 H 149/69 H Blood Pressure Mean 108 95 Pulse Ox 99 99 Oxygen Delivery Method Room Air Room Air 07/29/22 15:28 Temperature 99.4 F H Temperature Source Oral Pulse Rate 104 H Respiratory Rate 16 Respiratory Effort Respiratory Pattern Blood Pressure 149/69 H Blood Pressure Mean 95 Pulse Ox 99 Oxygen Delivery Method Room Air Weight Weight: 195 lb Body Mass Index (BMI) 29.6 Physical Exam Narrative Physical Examination: General: Awake, alert, oriented x 3 and cooperative, laying in the ED bed, fatigued and ill-appearing. Skin: Normal color, normal turgor, no icterus, no cyanosis except for occasional staged ecchymoses especially to the castaneda region bilateral lower extremity. HEENT: AT/NC, EOMI, PERRLA, dry MM, no carotid bruits or JVD noted. Lungs: Diminished, greater bases, appropriate effort, no rales, ronchi or wheezing. Heart: Mildly tachycardic with regular rhythm; no gallop, rub audible. Abdomen: Soft, overweight, NTTP and no specific flank discomfort, ND, mildly hyperactive BS, no obvious evidence of HSM. Extremities: No cyanosis, clubbing, or edema. Neurological: Patient awake, alert, oriented as noted, cognitive function intact although fatigued appearing; pupils equally reactive to light and accommodation, cranial nerves II-XII grossly normal, moving all 4 extremities, no focal deficits, strength moderately globally decreased secondary to acute presentation. Psychiatric: Affect appears fatigued, ill-appearing, no acute evidence of depressive or anxiety feelings. Results Lab / Micro Data Result Diagrams: 07/29/22 13:05 07/29/22 13:05 Labs: Laboratory Results - last 24 hr 07/29/22 13:05: WBC 23.8 H, RBC 4.65, Hgb 15.2 H, Hct 46.1, MCV 99.1 H, MCH 32.7 H, MCHC 33.0, RDW Std Deviation 52.5 H, RDW Coeff of [place] 14.5, Plt Count 284, MPV 9.6, Immature Gran % (Auto) 0.900, Neut % (Auto) 86.7 H, Lymph % (Auto) 8.6 L, [place] % (Auto) 3.4, Eos % (Auto) 0.0, Baso % (Auto) 0.4, Absolute Neuts (auto) 20.6 H, Absolute Lymphs (auto) 2.05, Nucleated RBC % 0, Differential Comment SCANNED 07/29/22 13:05: Sodium 137, Potassium 4.3, Chloride 103, Carbon Dioxide 25.0, Anion Gap 9, BUN 16, Creatinine 2.19 H, Estim Creat Clear Calc 24.46, Est GFR (MDRD) Af Amer 29 L, Est GFR (MDRD) Non-Af 24 L, BUN/Creatinine Ratio 7.3 L, Glucose 104, Calcium 8.6 07/29/22 13:05: Lactic Acid 2.6 H* 07/29/22 14:50: Urine Color Yellow, Urine Clarity Clear, Urine pH 6.5, Ur Specific [place] 1.010, Urine Protein 500 H, Urine Glucose (UA) Normal, Urine Ketones Negative, Urine Occult Blood 250 H, Urine Nitrite Negative, Urine Bilirubin Negative, Urine Urobilinogen Normal, Ur Leukocyte Esterase 500 H, Urine RBC 5-10 SEEN, Urine WBC 25-50 SEEN, Ur Squamous Epith Cells 0-5 SEEN, Urine Bacteria 1+, Urine Mucus 0 SEEN Micro: Microbiology 07/29/22 13:12 Nasal Secretion SARS-CoV-2 & FLU Antigen (Rapid) - Final Radiology Impression Chest X-Ray 07/29/22 13:54 IMPRESSION: No acute pulmonary process, no interval change Electronically Signed: Aries Owens MD at 14:10 EDT Reading Location ID and State: [address] [place] [address] , Service support , Assessment & Plan Assessment/Plan (1) Sepsis: PLAN: Plan The patient is a 71 y/o F w/ PMHx: Allergic rhinitis, Hx Chronic wounds, Hypothyroidism, Asthma, Hx Cervical cancer, CKD stage IV with AVF in place, HTN, HLD, Former tobacco use who presents to the [facility] ED on 07/29/22 with history of onset fever starting the evening prior with nausea and emesis with recent 07/28/22 Dr. Strickland directed cystoscopy, right retrograde pyelogram interpretation fluoroscopic images and right stent placement, left retrograde pyelogram interpretation fluoroscopic images and left stent placement secondary to prior history of BL ureteral ureteral obstruction from radiation therapy long time ago scarred down ureters reporting that she does make urine although she denies any recent dysuria and denies any current ongoing dialysis prompting eventual ED evaluation. #1. Acute Sepsis secondary to Acute Comlicated Urinary Tract Infection secondary to recent ureteral stent replacements and possible transient bacteremia with associated lactic acidosis: Will admit to medical surgical floor given stable vital signs, UA upon ED evaluation remarkable, pending UCx per ED, continue IVFs, monitor I/Os, continue IV Zosyn pending cultures w/ transition as able pending sensitivities and speciation. Bld cx x [address] ED[address] Dr[address] Strickland consulted and will evaluate her in AM. #2. Hypertension: Continue home regimen including metoprolol, amlodipine with hold parameters as needed, PRN hydralazine. #3. Hyperlipidemia: Not on statin therapy, defer to outpatient. #4. Hypothyroidism: We will continue patient home levothyroxine regimen. #5. Allergic rhinitis: We will continue patient home ipratropium twice daily intranasal regimen. #6. Chronic asthma: Not on any routine scheduled inhaler, will have as needed albuterol if needed, encourage head of bed and I-S. #7. Chronic Kidney Disease Stage IV: Admission BUN/Cr 16/2.19, baseline renal function appears more recently 1.8-2.0, continue to closely follow especially given acute presentation, repeat BMP in AM. Patient is not on dialysis and does make urine of note. #8. Former tobacco use: Encourage continued tobacco cessation. #9. Hx Cervical Cancer: s/p resection, as noted history of associated scarring, considered in remission. #10. DVT prophylaxis: SCDs, hold chemoprophylaxis given recent OR day prior and hematuria noted. #11. CODE status: Patient does not have healthcare power of defense attorney nor living will set up. Noted if she wanted information discussed this with case management/social work. Discussed CODE status at length including difference between FULL code, DNR-CCA and DNR-CC status. Following discussions about the differences in these status, requested Full Code status. Advanced Care Planning Face to Face Time: 16 minutes. Charges/Coding Visit Charges Inpatient E&M: 48548 Init Hosp L3 Procedures Hospitalists Procedures: 36470 Advncd Care Plan 30 Min
--- NOTE | 2022-07-29 15:48 | NURSING ---
MED SURG WHITE UTI, SEPSIS, TACHYCARDIA, FEVER
[2022-07-29 17:16] LABS: Reflex Lactate? Y
[2022-07-29] MEDS: Potassium Chloride Oral Tablet 20 MEQ PO (18:34)
[2022-07-29] MEDS: Acetaminophen 325 MG Tablet 650 MG PO (18:42)
[2022-07-29] MEDS: Metoprolol Tartrate 50 MG Tablet PO (21:36)
[2022-07-30] VITALS (14 sets, daily range): BP systolic 99–123; BP diastolic 60–67; PULSE 81–99; RESP 16–18; TEMP 36.8–38.8; O2SAT 92–97
[2022-07-30] MEDS: Ondansetron 4 MG/2 ML Vial IV (02:23)
[2022-07-30] MEDS: 0.9% Normal Saline 1,000 ML 150 ML IV ×4 (04:32→23:40)
[2022-07-30] MEDS: Levothyroxine 25 MCG TABLET PO (05:32)
--- NOTE | 2022-07-30 05:59 | NURSING ---
PT HAVING LIQUID STOOLS - MADE AWARE - STOOL FOR CDIFF ORDERED & COLLECTED.
--- NOTE | 2022-07-30 07:27 | PCM.PN.HOSP ---
Subjective Subjective Patient is a 71-year-old lady who underwent Cystoscopy, right retrograde pyelogram interpretation fluoroscopic images and right stent placement, left retrograde pyelogram interpretation fluoroscopic images and left stent placement on account of bilateral ureteral obstruction from radiation therapy by Dr Strickland on 07/28/2022. Presented with fever and assessment of sepsis secondary to acute complicated UTI made admitted to regular nursing floor for further management Objective Data Objective Data Vital Signs: Vital Signs Temp Pulse Resp BP Pulse Ox O2 Del Method 98.4 F 98 18 123/61 H 92 Room Air 07/30/22 02:58 07/30/22 06:00 07/30/22 02:58 07/30/22 02:58 07/30/22 02:58 07/30/22 02:58 Oxygen Delivery Method Room Air Weight: 90.5 kg Body Mass Index (BMI) 29.7 Intake & Output: Intake and Output for Last 24 Hours 07/28/22 07/29/22 07/30/22 23:59 23:59 23:59 Intake Total 1600 / 1700 1790 / 1790 Output Total 200 / 200 Balance 1600 / 1550 1590 / 1590 Lab / Micro Data Result Diagrams: 07/30/22 08:02 07/30/22 08:02 Labs: Laboratory Results - last 24 hr 07/29/22 13:05: WBC 23.8 H, RBC 4.65, Hgb 15.2 H, Hct 46.1, MCV 99.1 H, MCH 32.7 H, MCHC 33.0, RDW Std Deviation 52.5 H, RDW Coeff of [place]wey 14.5, Plt Count 284, MPV 9.6, Immature Gran % (Auto) 0.900, Neut % (Auto) 86.7 H, Lymph % (Auto) 8.6 L, [place] % (Auto) 3.4, Eos % (Auto) 0.0, Baso % (Auto) 0.4, Absolute Neuts (auto) 20.6 H, Absolute Lymphs (auto) 2.05, Nucleated RBC % 0, Differential Comment SCANNED 07/29/22 13:05: Sodium 137, Potassium 4.3, Chloride 103, Carbon Dioxide 25.0, Anion Gap 9, BUN 16, Creatinine 2.19 H, Estim Creat Clear Calc 24.46, Est GFR (MDRD) Af Amer 29 L, Est GFR (MDRD) Non-Af 24 L, BUN/Creatinine Ratio 7.3 L, Glucose 104, Calcium 8.6 07/29/22 13:05: Lactic Acid 2.6 H* 07/29/22 14:50: Urine Color Yellow, Urine Clarity Clear, Urine pH 6.5, Ur Specific [place] 1.010, Urine Protein 500 H, Urine Glucose (UA) Normal, Urine Ketones Negative, Urine Occult Blood 250 H, Urine Nitrite Negative, Urine Bilirubin Negative, Urine Urobilinogen Normal, Ur Leukocyte Esterase 500 H, Urine RBC 5-10 SEEN, Urine WBC 25-50 SEEN, Ur Squamous Epith Cells 0-5 SEEN, Urine Bacteria 1+, Urine Mucus 0 SEEN Micro: Microbiology 07/29/22 13:12 Nasal Secretion SARS-CoV-2 & FLU Antigen (Rapid) - Final Radiography Diagnostic Testing: Radiology Impression Chest X-Ray 07/29/22 13:54 IMPRESSION: No acute pulmonary process, no interval change Electronically Signed: Aries Owens MD at 14:10 EDT Reading Location ID and State: [facility] / MD , Service support , Physical Exam Narrative GENERAL: cooperative HEENT: Atraumatic; EYES; Anicteric, Normal Conjunctiva NECK; supple, normal thyroid, RESPIRATORY: Diminished to auscultation CARDIOVASCULAR: Regular S1 S2, GI: soft, normoactive bowel sounds, : No Renal angle tenderness; EXTREMITIES: No edema, no clubbing, MUSCULOSKELETAL: no muscle wasting NEURO: Awake; no lateralizing signs. SKIN: No Rash PSYCH; Flat affect Assessment & Plan Assessment/Plan (1) Sepsis: PLAN: Plan Patient is a 71-year-old lady who underwent Cystoscopy, right retrograde pyelogram interpretation fluoroscopic images and right stent placement, left retrograde pyelogram interpretation fluoroscopic images and left stent placement on account of bilateral ureteral obstruction from radiation therapy by Dr Strickland on 07/28/2022. Presented with fever and assessment of sepsis secondary to acute complicated UTI made admitted to regular nursing floor for further management 1. Sepsis secondary to acute complicated UTI secondary to recent urological intervention (ureteral stent placement) ? Evidence of sepsis WBC count greater than 12 K, heart rate greater than 90, presence of an infection?UTI and evidence of endorgan dysfunction lactic acid level greater than 2. Treatment initiated per protocol after cultures have been obtained. Managed with aggressive IV fluid resuscitation broad-spectrum antibiotic therapy. Consult was placed to patient's urologist Dr Strickland. Patient progressed being monitored with serial WBC count, lactic acid level vitals including temperature 2. Chronic kidney disease stage IV ? Baseline creatinine between 2 and 1.8 patient creatinine on admission close to baseline 3. Hypertension - Blood pressure controlled, home medications continued with dose adjustment as needed 4.. Hypothyroidism - Patient is on levothyroxine home dose continued 5. History of cervical CA ? Currently remission 6. DVT prophylaxis ? SCDs for now 7. Class I obesity with BMI of 30.3 ? Weight loss advised Charges/Coding Visit Charges Inpatient E&M: 16651 Subs Hosp L3
[2022-07-30 08:13] LABS: Absolute Lymphocyte Count 2.94 X10^3/uL (0.83-4.51); Absolute Neutrophil Count 18.4 X10^3/uL (2.0-7.7); Basophil# 0.09 X10^3/uL; Basophil% 0.4 % (0-1); Eosinophil# 0.05 X10^3/uL; Eosinophils% 0.2 % (0-5); Hematocrit 40.6 % (37-47); Hemoglobin 12.9 g/dL (12.0-15.0); Lymphocyte # 2.94 X10^3/ul (0.83-4.51); Lymphocyte % 13.1 % (19-41); Mean Corp Hgb Conc 31.8 g/dL (32-36); Mean Corpuscular Hgb 32.3 pg (27.0-32.0); Mean Corpuscular Volume 101.5 fL (81-99); Mean Platelet Vol. 9.7 fl (6.2-12.0); Monocyte# 0.73 X10^3/uL; Monocyte% 3.3 % (0-10); NRBC Flagged by Analyzer 0 % (0-5); Neutrophil # 18.41 X10^3/uL (2.7-7.7); Neutrophil % 81.9 % (47-70); Platelet Count 223 K/mm3 (150-450); RBC Distribution Width CV 14.6 % (11.6-14.6); RBC Distribution Width SD 54.8 fl (35.1-43.9); White Blood Count 22.5 K/mm3 (4.4-11.0)
[2022-07-30 08:35] LABS: ALB/GLOB Ratio 0.4 RATIO (0.9-2.4); AST(SGOT) 15 U/L (15-37); Alanine Aminotransfer ALT/SGPT 11 U/L (13-56); Albumin, Serum 1.8 g/dL (3.2-5.0); Alkaline Phosphatase 69 U/L (45-117); Anion Gap 10 (5-15); BUN 19 mg/dL (7-18); BUN/Creat Ratio 9.3 RATIO (10-20); Calcium,Total 7.1 mg/dL (8.5-10.1); Chloride 109 mmol/L (98-107); Creatinine, Serum 2.05 mg/dL (0.55-1.02); EST Glomerular Filtration Rate 26 mL/min (>60); Est Glom Filt Rate - Afr Amer 31 mL/min (>60); Estimated Creatinine Clearance 26.13 ml/min; Globulin 4.4 g/dL (2.2-4.2); Glucose 94 mg/dL (74-106); Lactic Acid 1.2 mmol/L (0.4-1.9); Potassium 3.6 mmol/L (3.5-5.1); Protein, Total 6.2 g/dL (6.4-8.2); Sodium Level 138 mmol/L (136-145)
[2022-07-30] MEDS: Metoprolol Tartrate 50 MG Tablet PO ×2 (09:47→21:13)
--- NOTE | 2022-07-30 09:57 | NURSING ---
Discussed with patient the importance of getting oob and sitting in chair. She states she does not want to at this time. Will attempt at a later time.
[2022-07-30] MEDS: Acetaminophen 325 MG Tablet 650 MG PO (15:15)
--- NOTE | 2022-07-30 16:02 | PCM.CONS.U ---
HPI Consult Data Date of Consult: 07/30/22 HPI Narrative Reason for Consultation: Bacteremia sepsis after stent changes HPI Narrative: TODD HERRERA, is a 71 F who presents to the hospital with fevers chills elevated white blood count she underwent a cystoscopy and stent change on Sunday was given prophylactic antibiotics at the time of the procedure was given antibiotics after the procedure but call me with fevers and chills I instructed the patient to go to the hospital and she was admitted for early bacteremia and sepsis she is growing Pseudomonas from the urine sensitivities are pending I think we should consult infectious disease for now I think Zosyn is appropriate. She is clinically stable and no signs of decompression but she still having fevers and her white blood count is back down a little bit but still fairly high at 22,000. I will put in a consult for infectious disease we will continue to monitor and follow her I told the patient is very important that we get urine cultures prior to stent changes especially in patients with chronic stents. REPLACED BY [facility] Medical History Acute diarrhea LULY (acute kidney injury) Asthma Dunbar's palsy Bilateral hydronephrosis Bladder disease Blood disorder Bruising Cancer Cardiology follow-up encounter Cervical cancer Chronic renal failure, stage 4 (severe) Easy bruising Essential hypertension Former smoker Gout High anion gap metabolic acidosis History of biliary stent insertion History of cervical cancer History of Clostridium difficile infection History of COVID-19 History of irregular heartbeat History of renal disease Hx of cataract Hx of echocardiogram Hx of vertigo Hyperlipidemia Hypertension Hypokalemia Hyponatremia Leg cramps Lymphocytosis Mild intermittent asthma Near syncope Open wound Problem with dialysis access Sepsis Status post placement of implantable loop recorder (~03/29/20) Thyroid disease Urinary incontinence Wears dentures Home Medications albuterol sulfate 90 mcg/actuation aerosol inhaler (Ventolin HFA) 2 puff inhalation Q6H PRN Sob &/Or Wheezing 07/25/18 [History Last Taken 12/30/21 10:00] metoprolol tartrate 50 mg tablet 50 mg PO BID blood pressure 01/27/19 [History Last Taken 07/28/22] levothyroxine 25 mcg tablet 25 mcg PO DAILY thyroid 01/09/20 [History Last Taken 07/28/22] potassium chloride 20 mEq tablet,extended release(part/cryst) 20 meq PO BID supplement 09/01/20 [History Last Taken 09/23/20] cholecalciferol (vitamin D3) 1,250 mcg (50,000 unit) capsule 1,250 mcg PO QMONTH #1 cap 06/02/21 [Rx Last Taken Unknown] amlodipine 2.5 mg tablet 2.5 mg PO DAILY BP #90 tabs 08/12/21 [Rx Last Taken 07/28/22] ipratropium bromide 42 mcg (0.06 %) nasal spray 1 spray intranasal BID 11/23/21 [History Last Taken 11/29/21 07:00] Allergy/AdvReac Type Severity Reaction Status Date / Time pravastatin Allergy Severe Chest Verified 07/29/22 12:24 tightness procaine [From Novocain] Allergy Severe NEEDS Verified 07/29/22 12:24 FOLLOW-UP sulfamethoxazole Allergy Severe Shortness Verified 07/29/22 12:24 [From Bactrim] of breath trimethoprim [From Bactrim] Allergy Severe Shortness Verified 07/29/22 12:24 of breath Gpvjteg-HEU-IsH Reductase Allergy Anaphylaxis Verified 07/29/22 12:24 Inhibitor clindamycin AdvReac Severe unsure of Verified 07/29/22 12:24 reaction methylprednisolone AdvReac Severe Pain in Verified 07/29/22 12:24 joints levofloxacin [From Levaquin] AdvReac UNSURE OF Verified 07/29/22 12:24 REACTION Family History Father , 32 yrs old CAD (coronary artery disease) History of coronary artery bypass surgery Mother Cancer Lung CA, Hx tobacco use. Surgical History History of arteriovenostomy for renal dialysis (~09/2021) History of cardiac catheterization (~01/08/18) History of cardiac catheterization History of cholecystectomy History of excision of mass History of hysterectomy History of loop recorder history of radium implant Hx of cystoscopy S/P arteriovenous (AV) fistula creation Social History household members: spouse and children number of children: 6 current occupational status: retired history of recent travel: No Smoking Status: Former smoker second hand exposure: No alcohol intake: never substance use type: does not use what type of physical activity do you participate in: walking saurabh/jainism: Non-Baptist/Independent seatbelt use: always do you feel safe at home: Yes additional social history: - Fernando Lab / Micro Data Result Diagrams: 07/30/22 08:02 07/30/22 08:02 Labs: Laboratory Results - last 24 hr 07/30/22 08:02: WBC 22.5 H, RBC 4.00 L, Hgb 12.9, Hct 40.6, MCV 101.5 H, MCH 32.3 H, MCHC 31.8 L, RDW Std Deviation 54.8 H, RDW Coeff of [place] 14.6, Plt Count 223, MPV 9.7, Immature Gran % (Auto) 1.100 H, Neut % (Auto) 81.9 H, Lymph % (Auto) 13.1 L, [place] % (Auto) 3.3, Eos % (Auto) 0.2, Baso % (Auto) 0.4, Absolute Neuts (auto) 18.4 H, Absolute Lymphs (auto) 2.94, Nucleated RBC % 0 07/30/22 08:02: Sodium 138, Potassium 3.6, Chloride 109 H, Carbon Dioxide 19.0 L, Anion Gap 10, BUN 19 H, Creatinine 2.05 H, Estim Creat Clear Calc 26.13, Est GFR (MDRD) Af Amer 31 L, Est GFR (MDRD) Non-Af 26 L, BUN/Creatinine Ratio 9.3 L, Glucose 94, Calcium 7.1 L, Total Bilirubin 0.90, AST 15, ALT 11 L, Alkaline Phosphatase 69, Total Protein 6.2 L, Albumin 1.8 L, Globulin 4.4 H, Albumin/Globulin Ratio 0.4 L 07/30/22 08:02: Lactic Acid 1.2 Micro: Microbiology 07/30/22 05:55 Stool C. difficile DNA Amplification - Final 07/29/22 14:50 Urine Catheter - Catheter Urine Culture - Preliminary GNR Poss Pseudomonas sp 07/29/22 13:12 Nasal Secretion SARS-CoV-2 & FLU Antigen (Rapid) - Final
[2022-07-30] MEDS: Menthol/Lanolin/Calamine/Znox 113 GM Tube 1 APPLIC TOPICAL (23:39)
[2022-07-30] MEDS: Loperamide 2 MG Capsule PO (23:39)
[2022-07-31] VITALS (11 sets, daily range): BP systolic 129–147; BP diastolic 59–73; PULSE 79–100; RESP 18; TEMP 36.6–37.2; O2SAT 94–95
[2022-07-31] MEDS: Ondansetron 4 MG/2 ML Vial IV (01:44)
[2022-07-31] MEDS: 0.9% Saline Lock 10 ML Syringe IV ×2 (01:44→22:55)
[2022-07-31 05:00] LABS: Absolute Neutrophil Count 9.7 X10^3/uL (2.0-7.7); Basophil# 0.04 X10^3/uL; Basophil% 0.3 % (0-1); Eosinophil# 0.02 X10^3/uL; Eosinophils% 0.2 % (0-5); Hematocrit 37.8 % (37-47); Hemoglobin 12.5 g/dL (12.0-15.0); Lymphocyte % 13.5 % (19-41); Mean Corp Hgb Conc 33.1 g/dL (32-36); Mean Corpuscular Hgb 33.2 pg (27.0-32.0); Mean Corpuscular Volume 100.5 fL (81-99); Mean Platelet Vol. 10.1 fl (6.2-12.0); Monocyte# 0.43 X10^3/uL; Monocyte% 3.6 % (0-10); NRBC Flagged by Analyzer 0 % (0-5); Neutrophil # 9.73 X10^3/uL (2.7-7.7); Neutrophil % 81.8 % (47-70); Platelet Count 202 K/mm3 (150-450); RBC Distribution Width CV 14.9 % (11.6-14.6); RBC Distribution Width SD 54.9 fl (35.1-43.9); Red Blood Count 3.76 M/mm3 (4.2-5.4); White Blood Count 11.9 K/mm3 (4.4-11.0)
[2022-07-31] MEDS: Levothyroxine 25 MCG TABLET PO (05:02)
[2022-07-31] MEDS: Loperamide 2 MG Capsule PO ×2 (05:16→23:31)
[2022-07-31] MEDS: 0.9% Normal Saline 1,000 ML 150 ML IV ×3 (05:18→23:31)
[2022-07-31 05:28] LABS: Anion Gap 11 (5-15); BUN 20 mg/dL (7-18); BUN/Creat Ratio 10.5 RATIO (10-20); Calcium,Total 7.3 mg/dL (8.5-10.1); Chloride 112 mmol/L (98-107); EST Glomerular Filtration Rate 28 mL/min (>60); Est Glom Filt Rate - Afr Amer 34 mL/min (>60); Estimated Creatinine Clearance 28.19 ml/min; Glucose 85 mg/dL (74-106); Magnesium 1.7 mg/dL (1.6-2.6); Phosphorus 3.3 mg/dL (2.5-4.9); Sodium Level 140 mmol/L (136-145)
[2022-07-31] MEDS: Potassium Chloride Oral Tablet 20 MEQ 40 MEQ PO ×2 (08:34→17:10)
[2022-07-31] MEDS: Menthol/Lanolin/Calamine/Znox 113 GM Tube 1 APPLIC TOPICAL ×2 (08:35→22:36)
[2022-07-31] MEDS: Metoprolol Tartrate 50 MG Tablet PO ×2 (08:36→22:36)
[2022-07-31] MEDS: Ipratropium Bromide 0.06% NASAL SPRAY 1 SPRAY NASAL (08:38)
[2022-07-31] MEDS: amLODIPine 2.5 MG Tablet PO (08:39)
--- NOTE | 2022-07-31 09:22 | PCM.PN.HOSP ---
Subjective Subjective Follow-up acute pneumonitis complicated UTI: Patient was seen and examined. She had diarrhea yesterday, C. difficile negative, given Imodium. Diarrhea appears improved. She generally feels improved. No acute events overnight. Objective Data Objective Data Vital Signs: Vital Signs Temp Pulse Resp BP Pulse Ox O2 Del Method 98.9 F 94 18 134/73 H 95 Room Air 07/31/22 08:00 07/31/22 08:36 07/31/22 08:00 07/31/22 08:36 07/31/22 08:00 07/31/22 08:00 Oxygen Delivery Method Room Air Weight: 89.993 kg Body Mass Index (BMI) 29.7 Intake & Output: Intake and Output for Last 24 Hours 07/29/22 07/30/22 07/31/22 23:59 23:59 23:59 Intake Total 1600 / 1700 5412.5 / 5412.5 895 / 895 Output Total 1675 / 1675 775 / 775 Balance 1600 / 1550 3737.5 / 3737.5 120 / 120 Lab / Micro Data Result Diagrams: 07/31/22 03:57 07/31/22 03:57 Labs: Laboratory Results - last 24 hr 07/31/22 03:57: WBC 11.9 H, RBC 3.76 L, Hgb 12.5, Hct 37.8, MCV 100.5 H, MCH 33.2 H, MCHC 33.1, RDW Std Deviation 54.9 H, RDW Coeff of Dewey 14.9 H, Plt Count 202, MPV 10.1, Immature Gran % (Auto) 0.600, Neut % (Auto) 81.8 H, Lymph % (Auto) 13.5 L, [place] % (Auto) 3.6, Eos % (Auto) 0.2, Baso % (Auto) 0.3, Absolute Neuts (auto) 9.7 H, Absolute Lymphs (auto) 1.60, Nucleated RBC % 0 07/31/22 03:57: Sodium 140, Potassium 3.0 L, Chloride 112 H, Carbon Dioxide 17.0 L, Anion Gap 11, BUN 20 H, Creatinine 1.90 H, Estim Creat Clear Calc 28.19, Est GFR (MDRD) Af Amer 34 L, Est GFR (MDRD) Non-Af 28 L, BUN/Creatinine Ratio 10.5, Glucose 85, Calcium 7.3 L, Phosphorus 3.3, Magnesium 1.7 Micro: Microbiology 07/29/22 14:50 Urine Catheter - Catheter Urine Culture - Final Pseudomonas aeroginosa 07/29/22 13:20 Blood Culture (Wb) - Right Hand Blood Culture - Preliminary No growth in 48 hours. 07/29/22 13:05 Blood Culture (Wb) - Anticubital Right Blood Culture - Preliminary No growth in 48 hours. 07/30/22 05:55 Stool C. difficile DNA Amplification - Final 07/29/22 13:12 Nasal Secretion SARS-CoV-2 & FLU Antigen (Rapid) - Final Physical Exam Narrative Physical exam: General: Alert, Oriented x3, Cooperative, No apparent distress HEENT: Atraumatic Oral: Moist Mucosa Neck: Supple Lungs: Clear to auscultation Cardiovascular: HS I+II, regular, no murmurs Abdomen: Bowel Sounds Present, Soft, Non Tender Extremities: No edema Skin: No rashes, No breakdown Neurological: Grossly intact Psych/Mental Status: Appropriate Assessment & Plan Assessment/Plan (1) Sepsis: PLAN: Plan 1. Sepsis secondary to acute complicated Pseudomonas UTI secondary to recent ureteral stent placement, 07/28/22, improving WBC count now 11.9 from 22.5 yesterday Urine cultures growing Pseudomonas, pansensitive Urology following, ID consulted for urology Continue on IV Zosyn pending ID changes 2. Hypokalemia/hypomagnesemia, replace, recheck in a.m. 3. Chronic kidney disease stage IV, creatinine today is 1.90, close to baseline 4. Hypertension, controlled, continue on amlodipine and metoprolol 5. Hypothyroidism, continue on Synthroid 6. History of cervical CA, in remission 7. DVT prophylaxis - SCDs Charges/Coding Visit Charges Inpatient E&M: 05167 Subs Hosp L2
--- NOTE | 2022-07-31 10:00 | CASEMGMT ---
RN KAYA Face to Face with patient for initial transition planning/care coordination assessment. RN CM introduced self and role at [facility]. Patient lying in bed, alert and oriented. Patient willing to participate in assessment and is able to answer all questions appropriately. Care providers, pharmacy, and demographics verified. Patient wishes to discharge home, denies need for home health at this time. Patient states she has no further needs or concerns at this time. CM to follow for discharge planning needs that may arise. PCP: Ricky Specialists: Quintin, urologist; Darnell, tank shop supervisor; Byron internal specialist [facility]acy: [facility] Insurance: [employer] Prescription Benefit: yes Living Will/HPOA: none, would like information regarding advance directive, SW updated LNOK: daughters,son, granddaughter Living Arrangements: Patient lives with daughter and granddaughter in a 2 story home. Patient states she is independent and able to ambulate stairs. Transportation: daughters or son DME/HHC: Patient states she has shower chair, and raised toilet at home. Patient has had HHC in the past but does not recall name. No previous HHC. Disposition Plan: Patient to discharge home with family support and follow-up plans in place. Elena LIMA, RN, CM
--- NOTE | 2022-07-31 14:55 | PCM.CONS.GEN ---
Assessment & Plan Assessment/Plan (1) Acute UTI: (2) Sepsis: PLAN: sepsis due to pseudomonas uti s/p bilat ureteral stent change. On zosyn, feeling better. Reports tolerating cipro in the past with no issue. She is not sure what reaction with levaquin is. Plan for discharge will be cipro 500mg daily for one more week. Will follow, thank you HPI Consult Data Date of Consult: 07/31/22 HPI Narrative Reason for Consultation: uti HPI Narrative: TODD HERRERA, is a 71 F who had cystoscopy and bilat ureteral stent replacement by Dr. Strickland on 07/28/22. Day after procedure developed chills, n/v. Came to ED, admitted, now on zosyn for PsA (+) ucx. Feeling better. Full ROS performed and neg except as noted above. [facility] Medical History Acute diarrhea LULY (acute kidney injury) Asthma Dunbar's palsy Bilateral hydronephrosis Bladder disease Blood disorder Bruising Cancer Cardiology follow-up encounter Cervical cancer Chronic renal failure, stage 4 (severe) Easy bruising Essential hypertension Former smoker Gout High anion gap metabolic acidosis History of biliary stent insertion History of cervical cancer History of Clostridium difficile infection History of COVID-19 History of irregular heartbeat History of renal disease Hx of cataract Hx of echocardiogram Hx of vertigo Hyperlipidemia Hypertension Hypokalemia Hyponatremia Leg cramps Lymphocytosis Mild intermittent asthma Near syncope Open wound Problem with dialysis access Sepsis Status post placement of implantable loop recorder (~03/29/20) Thyroid disease Urinary incontinence Wears dentures Home Medications albuterol sulfate 90 mcg/actuation aerosol inhaler (Ventolin HFA) 2 puff inhalation Q6H PRN Sob &/Or Wheezing 07/25/18 [History Last Taken 12/30/21 10:00] metoprolol tartrate 50 mg tablet 50 mg PO BID blood pressure 01/27/19 [History Last Taken 07/28/22] levothyroxine 25 mcg tablet 25 mcg PO DAILY thyroid 01/09/20 [History Last Taken 07/28/22] potassium chloride 20 mEq tablet,extended release(part/cryst) 20 meq PO BID supplement 09/01/20 [History Last Taken 09/23/20] cholecalciferol (vitamin D3) 1,250 mcg (50,000 unit) capsule 1,250 mcg PO QMONTH #1 cap 06/02/21 [Rx Last Taken Unknown] amlodipine 2.5 mg tablet 2.5 mg PO DAILY BP #90 tabs 08/12/21 [Rx Last Taken 07/28/22] ipratropium bromide 42 mcg (0.06 %) nasal spray 1 spray intranasal BID 11/23/21 [History Last Taken 11/29/21 07:00] Allergy/AdvReac Type Severity Reaction Status Date / Time pravastatin Allergy Severe Chest Verified 07/29/22 12:24 tightness procaine [From Novocain] Allergy Severe NEEDS Verified 07/29/22 12:24 FOLLOW-UP sulfamethoxazole Allergy Severe Shortness Verified 07/29/22 12:24 [From Bactrim] of breath trimethoprim [From Bactrim] Allergy Severe Shortness Verified 07/29/22 12:24 of breath [id number] Reductase Allergy Anaphylaxis Verified 07/29/22 12:24 Inhibitor clindamycin AdvReac Severe unsure of Verified 07/29/22 12:24 reaction methylprednisolone AdvReac Severe Pain in Verified 07/29/22 12:24 joints levofloxacin [From Levaquin] AdvReac UNSURE OF Verified 07/29/22 12:24 REACTION Family History Father , 32 yrs old CAD (coronary artery disease) History of coronary artery bypass surgery Mother Cancer Lung CA, Hx tobacco use. Surgical History History of arteriovenostomy for renal dialysis (~09/2021) History of cardiac catheterization (~01/08/18) History of cardiac catheterization History of cholecystectomy History of excision of mass History of hysterectomy History of loop recorder history of radium implant Hx of cystoscopy S/P arteriovenous (AV) fistula creation Social History household members: spouse and children number of children: 6 current occupational status: retired history of recent travel: No Smoking Status: Former smoker second hand exposure: No alcohol intake: never substance use type: does not use what type of physical activity do you participate in: walking saurabh/christianity: Non-Shinto/Independent seatbelt use: always do you feel safe at home: Yes additional social history: - Fernando Physical Exam Const alert, oriented x3 and no apparent distress General Appearance: cooperative HEENT normocephalic and head/scalp atraumatic Eyes PERRL and EOMs intact bilaterally Neck supple and No nodes Resp normal air movement and clear to auscultation bilaterally Cardio regular rate and regular rhythm GI soft to palpation, non-tender and non-distended Extremity General Extremity: Negative for edema Skin no rashes or lesions noted Neuro CN's II-XII intact bilaterally Lab / Micro Data Attestation: I reviewed the patient's lab results. Result Diagrams: 07/31/22 03:57 07/31/22 03:57 Labs: Laboratory Results - last 24 hr 07/31/22 03:57: WBC 11.9 H, RBC 3.76 L, Hgb 12.5, Hct 37.8, MCV 100.5 H, MCH 33.2 H, MCHC 33.1, RDW Std Deviation 54.9 H, RDW Coeff of [place]wey 14.9 H, Plt Count 202, MPV 10.1, Immature Gran % (Auto) 0.600, Neut % (Auto) 81.8 H, Lymph % (Auto) 13.5 L, [place] % (Auto) 3.6, Eos % (Auto) 0.2, Baso % (Auto) 0.3, Absolute Neuts (auto) 9.7 H, Absolute Lymphs (auto) 1.60, Nucleated RBC % 0 07/31/22 03:57: Sodium 140, Potassium 3.0 L, Chloride 112 H, Carbon Dioxide 17.0 L, Anion Gap 11, BUN 20 H, Creatinine 1.90 H, Estim Creat Clear Calc 28.19, Est GFR (MDRD) Af Amer 34 L, Est GFR (MDRD) Non-Af 28 L, BUN/Creatinine Ratio 10.5, Glucose 85, Calcium 7.3 L, Phosphorus 3.3, Magnesium 1.7 Micro: Microbiology 07/29/22 14:50 Urine Catheter - Catheter Urine Culture - Final Pseudomonas aeroginosa 07/29/22 13:20 Blood Culture (Wb) - Right Hand Blood Culture - Preliminary No growth in 48 hours. 07/29/22 13:05 Blood Culture (Wb) - Anticubital Right Blood Culture - Preliminary No growth in 48 hours.
--- NOTE | 2022-07-31 15:08 | CASEMGMT ---
Social Work SW received referral from RNCM that pt is interested in Advance Directives. SW met with pt and introduced self and role of SW. Pt states she does not want to complete documents at this time but does want to take information home to review. SW explained HCPOA and Living will and provided pt with blank documents and Advance Directive Rac Card and informed pt she can call SW to set up appointment as an outpatient to complete forms. Pt appreciative of information. RACHEL Aparicio
[2022-07-31] MEDS: Acetaminophen 325 MG Tablet 650 MG PO (23:31)
[2022-07-31] MEDS: MELATONIN 3 MG TABLET PO (23:31)
[2022-08-01 03:53] VITALS: PULSE 69
[2022-08-01 04:20] VITALS: BP 118/70; PULSE 69; RESP 16; TEMP 36.4; O2SAT 94
[2022-08-01] MEDS: Levothyroxine 25 MCG TABLET PO (04:46)
[2022-08-01] MEDS: Loperamide 2 MG Capsule PO ×2 (04:46→09:46)
[2022-08-01] MEDS: 0.9% Normal Saline 1,000 ML 150 ML IV (04:47)
[2022-08-01 05:38] LABS: Absolute Lymphocyte Count 2.54 X10^3/uL (0.83-4.51); Absolute Neutrophil Count 6.4 X10^3/uL (2.0-7.7); Basophil# 0.04 X10^3/uL; Basophil% 0.4 % (0-1); Eosinophil# 0.08 X10^3/uL; Eosinophils% 0.8 % (0-5); Hematocrit 37.2 % (37-47); Hemoglobin 11.9 g/dL (12.0-15.0); Lymphocyte # 2.54 X10^3/ul (0.83-4.51); Lymphocyte % 26.7 % (19-41); Mean Corpuscular Hgb 32.3 pg (27.0-32.0); Mean Corpuscular Volume 101.1 fL (81-99); Mean Platelet Vol. 9.9 fl (6.2-12.0); Monocyte# 0.39 X10^3/uL; Monocyte% 4.1 % (0-10); NRBC Flagged by Analyzer 0 % (0-5); Neutrophil # 6.37 X10^3/uL (2.7-7.7); Neutrophil % 67.1 % (47-70); Platelet Count 194 K/mm3 (150-450); RBC Distribution Width CV 15.2 % (11.6-14.6); RBC Distribution Width SD 57.3 fl (35.1-43.9); Red Blood Count 3.68 M/mm3 (4.2-5.4); White Blood Count 9.5 K/mm3 (4.4-11.0)
[2022-08-01 05:54] LABS: ALB/GLOB Ratio 0.4 RATIO (0.9-2.4); AST(SGOT) 7 U/L (15-37); Alanine Aminotransfer ALT/SGPT 7 U/L (13-56); Albumin, Serum 1.7 g/dL (3.2-5.0); Alkaline Phosphatase 61 U/L (45-117); Anion Gap 8 (5-15); BUN 15 mg/dL (7-18); BUN/Creat Ratio 8.8 RATIO (10-20); Calcium,Total 7.7 mg/dL (8.5-10.1); Chloride 118 mmol/L (98-107); Creatinine, Serum 1.71 mg/dL (0.55-1.02); EST Glomerular Filtration Rate 31 mL/min (>60); Est Glom Filt Rate - Afr Amer 38 mL/min (>60); Estimated Creatinine Clearance 31.32 ml/min; Glucose 89 mg/dL (74-106); Potassium 3.8 mmol/L (3.5-5.1); Protein, Total 5.7 g/dL (6.4-8.2); Sodium Level 144 mmol/L (136-145)
[2022-08-01 08:00] VITALS: PULSE 75
--- NOTE | 2022-08-01 09:36 | DCINST_ITS ---
Discharge Instructions Diet Discharge Diet: 2000 mg Sodium Diet Activity Discharge Activity: Return to Normal Activity Follow Up Care Test Results: Test results from this visit will be discussed in further detail at your follow- up appointment, if applicable. Discharge Plan Admission Admit Date/Time: 07/29/22 15:37 Primary Reason for Your Visit: UTI Attending Provider: Joanne Silva Primary Care Provider: Gerardo García Chi Consulting Providers: Joshua Strickland ; Sammie Ruiz ; Andres Good ; Ky Goddard Instructions Additional Instructions / Restrictions: Complete your antibiotics Continue to keep yourself hydrated Follow-up with your primary care doctor within a week to have repeat blood work done to check on your kidney function Discharge Orders/Prescriptions Prescriptions: New ciprofloxacin HCl [Cipro] 500 mg tablet 500 mg PO BID 6 Days Qty: 12 0RF Continued albuterol sulfate [Ventolin HFA] 90 mcg/actuation HFA aerosol inhaler 2 puff INHALATION Q6H PRN (Reason: Sob &/Or Wheezing) metoprolol tartrate 50 MG tablet 50 mg PO BID Label Comments: TAKE 1 TABLET BY MOUTH TWICE DAILY levothyroxine 25 MCG tablet 25 mcg PO DAILY potassium chloride 20 MEQ tablet,ER particles/crystals 20 meq PO BID ipratropium bromide 42 mcg (0.06 %) spray,non-aerosol 1 spray INTRANASAL BID cholecalciferol (vitamin D3) 1,250 mcg (50,000 unit) capsule 1,250 mcg PO QMONTH Qty: 1 0RF amlodipine 2.5 mg tablet 2.5 mg PO DAILY Qty: 90 3RF Referrals / Follow Up: Gerardo García Chi, MD [Primary Care Provider] - In 1 Week Joshua Strickland MD [Med Staff - Active Staff] - Within 1 Month Disposition Disposition (needs filled in before D/C Order can be placed): Home, Self Care
--- NOTE | 2022-08-01 09:39 | PCM.DC.SUM ---
Providers Date of Admission: 07/29/22 Date of Discharge: 08/01/22 Primary Care Physician: Dr. Gerardo García MD Consultations 07/29/22 16:47 Consult: Urology Routine Consulting Provider: Joshua Strickland Reason for Consult: Recent 07/28/22 BL ureteral stent replacement w/ F/?UTI/?Transient bacteremia EMERGENT Consult: No Notified: Yes Date Notified: 07/29/22 Time Notified: 15:38 Method of Notification: Text 07/30/22 16:04 Consult: Infectious Disease Routine Consulting Provider: Ky Goddard Reason for Consult: bacterimia with pseudomonas EMERGENT Consult: No Notified: Yes Date Notified: 07/30/22 Time Notified: 16:04 Method of Notification: Answering Service Reason For Visit: UTI, SEPSIS, TACHYCARDIA, FEVER Diagnosis Discharge Diagnosis (1) Acute UTI: Status: Acute Code(s): N39.0 - Urinary tract infection, site not specified (2) Sepsis: Status: Acute Code(s): A41.9 - Sepsis, unspecified organism Plan 1. Sepsis secondary to acute complicated Pseudomonas UTI secondary to recent ureteral stent placement 2. Hypokalemia 3. Hypomagnesemia 4. LULY on Chronic kidney disease stage IV, POA 5. Hypertension, 6. Hypothyroidism 7. History of cervical CA Medications at Discharge Home Medications albuterol sulfate 90 mcg/actuation aerosol inhaler (Ventolin HFA) 2 puff inhalation Q6H PRN Sob &/Or Wheezing 07/25/18 metoprolol tartrate 50 mg tablet 50 mg PO BID blood pressure 01/27/19 levothyroxine 25 mcg tablet 25 mcg PO DAILY thyroid 01/09/20 potassium chloride 20 mEq tablet,extended release(part/cryst) 20 meq PO BID supplement 09/01/20 cholecalciferol (vitamin D3) 1,250 mcg (50,000 unit) capsule 1,250 mcg PO QMONTH #1 cap 06/02/21 amlodipine 2.5 mg tablet 2.5 mg PO DAILY BP #90 tabs 08/12/21 ipratropium bromide 42 mcg (0.06 %) nasal spray 1 spray intranasal BID 11/23/21 ciprofloxacin HCl 500 mg tablet (Cipro) 500 mg PO BID 6 days #12 tabs 08/01/22 Hospital Course Operations None Procedures None Summary of Care Provided Minutes Spent on Discharge: 45 Hospital Course: 71y/o old female with past medical history of hypertension, CKD stage IV, history of cervical CA in remission, bilateral ureteral obstruction from radiation therapy a long time ago. Patient had cystoscopy, right and left retrograde pyelogram, right and left stent placement on 07/28/2022. Patient was discharged home with antibiotics. She presented the next day with fever, tachycardia and UA suggestive of UTI. Patient had evidence of acute kidney injury present on admission with creatinine of 2.19, lactic acid was 2. Patient was admitted to [facility], managed on IV fluids and IV as Zosyn. Urine cultures grew Pseudomonas. Blood cultures had no growth in 48 hours. Patient continued to improve. Urology and ID followed in the hospital stay. She was discharged on 6 more days of Cipro. She will follow-up with her primary care doctor and with urology in the outpatient. She knows to follow-up within a week with her primary care doctor for repeat blood work to follow-up on the kidney function. On the day of discharge, patient was seen and examined. Denied any new complaint to be discharged. Physical Exam Narrative Physical exam: General: Alert, Oriented x3, Cooperative, No apparent distress HEENT: Atraumatic Oral: Moist Mucosa Neck: Supple Lungs: Clear to auscultation Cardiovascular: HS I+II, regular, no murmurs Abdomen: Bowel Sounds Present, Soft, Non Tender Extremities: No edema Skin: No rashes, No breakdown Neurological: Grossly intact Psych/Mental Status: Appropriate Weight / BMI Weight Weight: 92.4 kg Body Mass Index (BMI) 29.7 ABG / Lab / Microbiology Data Result Diagrams: 08/01/22 05:30 08/01/22 05:30 Laboratory: Laboratory Results - last 24 hr 08/01/22 05:30: WBC 9.5, RBC 3.68 L, Hgb 11.9 L, Hct 37.2, MCV 101.1 H, MCH 32.3 H, MCHC 32.0, RDW Std Deviation 57.3 H, RDW Coeff of Dewey 15.2 H, Plt Count 194, MPV 9.9, Immature Gran % (Auto) 0.900, Neut % (Auto) 67.1, Lymph % (Auto) 26.7, [place] % (Auto) 4.1, Eos % (Auto) 0.8, Baso % (Auto) 0.4, Absolute Neuts (auto) 6.4, Absolute Lymphs (auto) 2.54, Nucleated RBC % 0 08/01/22 05:30: Sodium 144, Potassium 3.8, Chloride 118 H, Carbon Dioxide 18.0 L, Anion Gap 8, BUN 15, Creatinine 1.71 H, Estim Creat Clear Calc 31.32, Est GFR (MDRD) Af Amer 38 L, Est GFR (MDRD) Non-Af 31 L, BUN/Creatinine Ratio 8.8 L, Glucose 89, Calcium 7.7 L, Total Bilirubin 0.40, AST 7 L, ALT 7 L, Alkaline Phosphatase 61, Total Protein 5.7 L, Albumin 1.7 L, Globulin 4.0, Albumin/Globulin Ratio 0.4 L Microbiology: Microbiology 07/29/22 14:50 Urine Catheter - Catheter Urine Culture - Final Pseudomonas aeroginosa 07/29/22 13:20 Blood Culture (Wb) - Right Hand Blood Culture - Preliminary No growth in 48 hours. 07/29/22 13:05 Blood Culture (Wb) - Anticubital Right Blood Culture - Preliminary No growth in 48 hours. 07/30/22 05:55 Stool C. difficile DNA Amplification - Final 07/29/22 13:12 Nasal Secretion SARS-CoV-2 & FLU Antigen (Rapid) - Final D/C Instructions Discharge Diet: 2000 mg Sodium Diet Meaningful Use Info Meaningful Use Diagnoses (Choose all that apply): None applicable Discharge Plan Admission Admit Date/Time: 07/29/22 15:37 Primary Reason for Your Visit: UTI Attending Provider: Joanne Silva Primary Care Provider: Gerardo García Chi Consulting Providers: Joshua Strickland ; Sammie Ruiz ; Andres Good ; Ky Goddard Instructions Additional Instructions / Restrictions: Complete your antibiotics Continue to keep yourself hydrated Follow-up with your primary care doctor within a week to have repeat blood work done to check on your kidney function Discharge Orders/Prescriptions Prescriptions: New ciprofloxacin HCl [Cipro] 500 mg tablet 500 mg PO BID 6 Days Qty: 12 0RF Continued albuterol sulfate [Ventolin HFA] 90 mcg/actuation HFA aerosol inhaler 2 puff INHALATION Q6H PRN (Reason: Sob &/Or Wheezing) metoprolol tartrate 50 MG tablet 50 mg PO BID Label Comments: TAKE 1 TABLET BY MOUTH TWICE DAILY levothyroxine 25 MCG tablet 25 mcg PO DAILY potassium chloride 20 MEQ tablet,ER particles/crystals 20 meq PO BID ipratropium bromide 42 mcg (0.06 %) spray,non-aerosol 1 spray INTRANASAL BID cholecalciferol (vitamin D3) 1,250 mcg (50,000 unit) capsule 1,250 mcg PO QMONTH Qty: 1 0RF amlodipine 2.5 mg tablet 2.5 mg PO DAILY Qty: 90 3RF Referrals / Follow Up: Joshua Strickland MD [Med Staff - Active Staff] - Within 1 Month Gerardo García Chi, MD [Primary Care Provider] - In 1 Week Disposition Disposition (needs filled in before D/C Order can be placed): Home, Self Care Charges/Coding Visit Charges Inpatient E&M: 53355 Disch Hosp
[2022-08-01] MEDS: Ipratropium Bromide 0.06% NASAL SPRAY 1 SPRAY NASAL (09:45)
[2022-08-01] MEDS: Potassium Chloride Oral Tablet 20 MEQ 40 MEQ PO (09:46)
[2022-08-01 09:50] VITALS: PULSE 83
[2022-08-01] MEDS: Metoprolol Tartrate 50 MG Tablet PO (09:50)
[2022-08-01] MEDS: amLODIPine 2.5 MG Tablet PO (09:50)
[2022-08-01 10:00] VITALS: BP 150/80; PULSE 83; RESP 18; TEMP 36.4; O2SAT 93
--- NOTE | 2022-08-01 10:02 | PCM.PN.ID ---
Physical Exam Narrative Feeling better, no fever, no n/v/d. Const alert and no apparent distress Resp normal air movement and clear to auscultation bilaterally Cardio regular rate and regular rhythm GI soft to palpation, non-tender and non-distended Skin no rashes or lesions noted ID ID: Route of nutrition/ use of supplements: [] Nutritional Intake: [] IV Site: [] Roberts Catheter: [] Assessment & Plan Assessment/Plan (1) Acute UTI: (2) Sepsis: PLAN: sepsis due to pseudomonas uti s/p bilat ureteral stent change. On zosyn, feeling better, wbc now normal. Reports tolerating cipro in the past with no issue. She is not sure what reaction with levaquin is. Plan for discharge will be cipro 500mg daily for one more week. Will follow as needed, please call with any ?s
[2022-08-01] MEDS: Menthol/Lanolin/Calamine/Znox 113 GM Tube 1 APPLIC TOPICAL (10:12)
[2022-08-01 10:31] VITALS: O2SAT 96
== END 2022-08-01 12:28 | disposition home or self-care (01) | DRG 660 ==
LOC: ED 15:24 → MS3 15:54
PROVIDERS: Internal Medicine; Admitting Provider Family Medicine; Emergency Provider Emergency Medicine; PCP Family Medicine Geriatric Medicine; Visit Provider Internal Medicine
DX: T83.593A Infection and inflammatory reaction due to other urinary stents, initial encounter (principal); E87.2 Acidosis; N17.9 Acute kidney failure, unspecified; N18.4 Chronic kidney disease, stage 4 (severe); N13.1 Hydronephrosis with ureteral stricture, not elsewhere classified; N39.0 Urinary tract infection, site not specified; Z16.24 Resistance to multiple antibiotics; Z99.2 Dependence on renal dialysis; I73.9 Peripheral vascular disease, unspecified; E03.9 Hypothyroidism, unspecified; I12.9 Hypertensive chronic kidney disease with stage 1 through stage 4 chronic kidney disease, or unspecified chronic kidney disease; E78.5 Hyperlipidemia, unspecified; E87.6 Hypokalemia; E83.42 Hypomagnesemia; R19.7 Diarrhea, unspecified; J45.20 Mild intermittent asthma, uncomplicated; M10.9 Gout, unspecified; B96.5 Pseudomonas (aeruginosa) (mallei) (pseudomallei) as the cause of diseases classified elsewhere; E66.9 Obesity, unspecified; Z68.30 Body mass index [BMI] 30.0-30.9, adult; Z95.818 Presence of other cardiac implants and grafts; Z79.899 Other long term (current) drug therapy; Z85.41 Personal history of malignant neoplasm of cervix uteri; Z92.3 Personal history of irradiation; Z86.16 Personal history of COVID-19; Z86.19 Personal history of other infectious and parasitic diseases; Z87.891 Personal history of nicotine dependence; Z80.1 Family history of malignant neoplasm of trachea, bronchus and lung
CPT/HCPCS: 36415; 71045; 76000; 80048; 80053; 81001; 83605; 83735; 84100; 85025; 87040; 87077; 87086; 87088; 87184; 87186; 87428; 87493; 97110; 97162; 97166; 97530; 97535; 99284; J7030; J7120; A4216; C1769; C2617; J2405

== ENCOUNTER → 2022-08-03 | Outpatient (CLI) | payer MEDICARE, SELFPAY ==
[2022-08-03 12:39] LABS: Absolute Lymphocyte Count 4.56 X10^3/uL (0.83-4.51); Absolute Neutrophil Count 8.8 X10^3/uL (2.0-7.7); Basophil# 0.06 X10^3/uL; Basophil% 0.4 % (0-1); Eosinophil# 0.09 X10^3/uL; Eosinophils% 0.6 % (0-5); Hematocrit 40.6 % (37-47); Hemoglobin 13.4 g/dL (12.0-15.0); Lymphocyte # 4.56 X10^3/ul (0.83-4.51); Lymphocyte % 31.7 % (19-41); Mean Corpuscular Hgb 32.7 pg (27.0-32.0); Mean Platelet Vol. 10.2 fl (6.2-12.0); Monocyte# 0.76 X10^3/uL; Monocyte% 5.3 % (0-10); NRBC Flagged by Analyzer 0 % (0-5); Neutrophil # 8.84 X10^3/uL (2.7-7.7); Neutrophil % 61.4 % (47-70); Platelet Count 291 K/mm3 (150-450); RBC Distribution Width CV 15.2 % (11.6-14.6); RBC Distribution Width SD 55.6 fl (35.1-43.9); White Blood Count 14.4 K/mm3 (4.4-11.0)
[2022-08-03 13:05] LABS: Vitamin D,25 Hydroxy 31.9 ng/mL
[2022-08-03 13:29] LABS: ALB/GLOB Ratio 0.5 RATIO (0.9-2.4); AST(SGOT) 12 U/L (15-37); Alanine Aminotransfer ALT/SGPT 11 U/L (13-56); Albumin, Serum 2.2 g/dL (3.2-5.0); Alkaline Phosphatase 87 U/L (45-117); Anion Gap 8 (5-15); BUN 10 mg/dL (7-18); BUN/Creat Ratio 6.3 RATIO (10-20); Calcium,Total 8.4 mg/dL (8.5-10.1); Chloride 110 mmol/L (98-107); Cholesterol 150 mg/dL (200); Creatinine, Serum 1.58 mg/dL (0.55-1.02); EST Glomerular Filtration Rate 34 mL/min (>60); Est Glom Filt Rate - Afr Amer 42 mL/min (>60); Globulin 4.7 g/dL (2.2-4.2); Glucose 96 mg/dL (74-106); High Density Lipoprotein 28 mg/dL; Potassium 4.2 mmol/L (3.5-5.1); Protein, Total 6.9 g/dL (6.4-8.2); Sodium Level 139 mmol/L (136-145); Thyroid Stim Hormone (TSH) 3.69 uIU/mL (0.358-3.74); Triglycerides 191 mg/dL; Very Low Density Lipoprotein 38 mg/dL (5-40)
== END | disposition home or self-care (01) ==
LOC: POLAB3 09:24
PROVIDERS: PCP Family Medicine Geriatric Medicine; Visit Provider Family Medicine Geriatric Medicine
DX: E55.9 Vitamin D deficiency, unspecified (principal); E78.5 Hyperlipidemia, unspecified; I10 Essential (primary) hypertension
CPT/HCPCS: 36415; 80053; 80061; 82306; 84443; 85025

== ENCOUNTER → 2022-08-28 | Outpatient (CLI) | payer MEDICARE, SELFPAY ==
[2022-08-28 11:50] LABS: PTHIN 153.9 pg/mL (18.4-80.1)
== END | disposition home or self-care (01) ==
LOC: LAB 10:53
PROVIDERS: PCP Family Medicine Geriatric Medicine; Visit Provider Internal Medicine Nephrology
DX: N25.81 Secondary hyperparathyroidism of renal origin (principal)
CPT/HCPCS: 36415; 83970

== ENCOUNTER → 2022-09-18 | Outpatient (CLI) | payer MEDICARE, SELFPAY | END | disposition home or self-care (01) | LOC: LAB 10:55 | PROVIDERS: PCP Family Medicine Geriatric Medicine; Visit Provider Urology | DX: N30.01 Acute cystitis with hematuria (principal) | CPT/HCPCS: 87077; 87086; 87088; 87186 ==

== ENCOUNTER → 2022-10-02 | Outpatient (CLI) | payer MEDICARE, SELFPAY | END | disposition home or self-care (01) | LOC: PSN 09:37 | PROVIDERS: PCP Family Medicine Geriatric Medicine; Referring Provider Family Medicine Geriatric Medicine; Visit Provider Family Medicine Geriatric Medicine | DX: R68.83 Chills (without fever) (principal) | CPT/HCPCS: 87635; 87804; 87807; C9803; U0003; U0005 ==

== ENCOUNTER → 2022-10-27 | Outpatient (CLI) | payer MEDICARE, SELFPAY | END | disposition home or self-care (01) | LOC: PSN 09:41 | PROVIDERS: PCP Family Medicine Geriatric Medicine; Referring Provider Family Medicine Geriatric Medicine; Visit Provider Family Medicine Geriatric Medicine | DX: R68.83 Chills (without fever) (principal) | CPT/HCPCS: 87635; 87804; 87807; C9803; U0003; U0005 ==

== ENCOUNTER → 2022-10-30 | Outpatient (CLI) | payer OTHER, SELFPAY ==
[2022-10-30 12:42] LABS: Absolute Lymphocyte Count 8.75 X10^3/uL (0.83-4.51); Absolute Neutrophil Count 12.8 X10^3/uL (2.0-7.7); Basophil# 0.03 X10^3/uL; Basophil% 0.1 % (0-1); Eosinophil# 0.06 X10^3/uL; Eosinophils% 0.3 % (0-5); Hemoglobin 15.5 g/dL (12.0-15.0); Lymphocyte # 8.75 X10^3/ul (0.83-4.51); Lymphocyte % 36.6 % (19-41); Mean Corp Hgb Conc 31.6 g/dL (32-36); Mean Corpuscular Volume 101.2 fL (81-99); Mean Platelet Vol. 10.2 fl (6.2-12.0); Monocyte# 1.48 X10^3/uL; Monocyte% 6.2 % (0-10); NRBC Flagged by Analyzer 0 % (0-5); Neutrophil # 12.83 X10^3/uL (2.7-7.7); Neutrophil % 53.6 % (47-70); POSITIVE DIFFERENTIAL YES; POSITIVE MORPHOLOGY YES; Platelet Count 408 K/mm3 (150-450); RBC Distribution Width CV 14.7 % (11.6-14.6); RBC Distribution Width SD 55.8 fl (35.1-43.9); Red Blood Count 4.84 M/mm3 (4.2-5.4); White Blood Count 23.9 K/mm3 (4.4-11.0)
[2022-10-30 12:46] LABS: Differential Indicated SCAN CRITERIA MET
[2022-10-30 13:00] LABS: Vitamin D,25 Hydroxy 37.2 ng/mL
[2022-10-30 13:25] LABS: Differential Comment SCANNED
[2022-10-30 13:42] LABS: ALB/GLOB Ratio 0.6 RATIO (0.9-2.4); AST(SGOT) 15 U/L (15-37); Alanine Aminotransfer ALT/SGPT 25 U/L (13-56); Albumin, Serum 3.1 g/dL (3.2-5.0); Alkaline Phosphatase 96 U/L (45-117); Anion Gap 9 (5-15); BUN 30 mg/dL (7-18); BUN/Creat Ratio 15.2 RATIO (10-20); Calcium,Total 8.7 mg/dL (8.5-10.1); Chloride 106 mmol/L (98-107); Cholesterol 223 mg/dL (200); Creatinine, Serum 1.97 mg/dL (0.55-1.02); EST Glomerular Filtration Rate 27 mL/min (>60); Est Glom Filt Rate - Afr Amer 32 mL/min (>60); Glucose 97 mg/dL (74-106); High Density Lipoprotein 46 mg/dL; Potassium 3.3 mmol/L (3.5-5.1); Protein, Total 8.1 g/dL (6.4-8.2); Sodium Level 139 mmol/L (136-145); Thyroid Stim Hormone (TSH) 2.88 uIU/mL (0.358-3.74); Triglycerides 196 mg/dL; Very Low Density Lipoprotein 39 mg/dL (5-40)
== END | disposition home or self-care (01) ==
LOC: POLAB3 11:49
PROVIDERS: Visit Provider Family Medicine Geriatric Medicine
DX: E55.9 Vitamin D deficiency, unspecified (principal); E78.5 Hyperlipidemia, unspecified; I10 Essential (primary) hypertension
CPT/HCPCS: 36415; 80053; 80061; 82306; 84443; 85025

== ENCOUNTER → 2022-12-05 | Outpatient (CLI) | payer MEDICARE, SELFPAY ==
[2022-12-05 11:13] LABS: Albumin, Serum 2.8 g/dL (3.2-5.0); BUN 15 mg/dL (7-18); BUN/Creat Ratio 8.1 RATIO (10-20); Calcium,Total 8.7 mg/dL (8.5-10.1); Chloride 107 mmol/L (98-107); Creatinine, Serum 1.86 mg/dL (0.55-1.02); EST Glomerular Filtration Rate 28 mL/min (>60); Est Glom Filt Rate - Afr Amer 34 mL/min (>60); Glucose 103 mg/dL (74-106); Phosphorus 3.4 mg/dL (2.5-4.9); Sodium Level 139 mmol/L (136-145)
[2022-12-05 11:15] LABS: PTHIN 159.4 pg/mL (18.4-80.1)
[2022-12-05 11:19] LABS: Vitamin D,25 Hydroxy 47.4 ng/mL
== END | disposition home or self-care (01) ==
PROVIDERS: PCP Family Medicine Geriatric Medicine; Referring Provider Internal Medicine Nephrology; Visit Provider Internal Medicine Nephrology
DX: E55.9 Vitamin D deficiency, unspecified (principal); N18.4 Chronic kidney disease, stage 4 (severe); N25.81 Secondary hyperparathyroidism of renal origin
CPT/HCPCS: 36415; 80069; 82306; 83970

== ENCOUNTER → 2023-01-02 | Outpatient (CLI) | payer MEDICARE, SELFPAY | END | disposition home or self-care (01) | PROVIDERS: PCP Family Medicine Geriatric Medicine; Referring Provider Family Medicine Geriatric Medicine; Visit Provider Family Medicine Geriatric Medicine | DX: N18.5 Chronic kidney disease, stage 5 (principal); L02.416 Cutaneous abscess of left lower limb; R68.83 Chills (without fever) | CPT/HCPCS: 87070; 87075; 87077; 87081; 87086; 87088; 87186; 87205; 87635; 87804; 87807; C9803; U0003; U0005 ==

== ENCOUNTER 2023-01-22 11:42 | Outpatient (CLI) | payer MEDICARE, SELFPAY ==
[2023-01-22 13:10] LABS: Absolute Lymphocyte Count 3.62 X10^3/uL (0.83-4.51); Absolute Neutrophil Count 11.5 X10^3/uL (2.0-7.7); Basophil# 0.06 X10^3/uL; Basophil% 0.4 % (0-1); Eosinophil# 0.01 X10^3/uL; Eosinophils% 0.1 % (0-5); Hematocrit 46.3 % (37-47); Hemoglobin 14.9 g/dL (12.0-15.0); Lymphocyte # 3.62 X10^3/ul (0.83-4.51); Lymphocyte % 23.1 % (19-41); Mean Corp Hgb Conc 32.2 g/dL (32-36); Mean Corpuscular Hgb 32.3 pg (27.0-32.0); Mean Corpuscular Volume 100.4 fL (81-99); Mean Platelet Vol. 10.6 fl (6.2-12.0); Monocyte# 0.38 X10^3/uL; Monocyte% 2.4 % (0-10); NRBC Flagged by Analyzer 0 % (0-5); Neutrophil # 11.48 X10^3/uL (2.7-7.7); Neutrophil % 73.2 % (47-70); Platelet Count 353 K/mm3 (150-450); RBC Distribution Width CV 13.3 % (11.6-14.6); RBC Distribution Width SD 49.1 fl (35.1-43.9); Red Blood Count 4.61 M/mm3 (4.2-5.4); White Blood Count 15.7 K/mm3 (4.4-11.0)
[2023-01-22 13:38] LABS: Vitamin D,25 Hydroxy 58.8 ng/mL
[2023-01-22 13:46] LABS: ALB/GLOB Ratio 0.7 RATIO (0.9-2.4); AST(SGOT) 15 U/L (15-37); Alanine Aminotransfer ALT/SGPT 16 U/L (13-56); Albumin, Serum 3.2 g/dL (3.2-5.0); Alkaline Phosphatase 89 U/L (45-117); Anion Gap 8 (5-15); BUN 31 mg/dL (7-18); BUN/Creat Ratio 14.8 RATIO (10-20); Calcium,Total 8.7 mg/dL (8.5-10.1); Chloride 105 mmol/L (98-107); Cholesterol 218 mg/dL (200); Creatinine, Serum 2.09 mg/dL (0.55-1.02); EST Glomerular Filtration Rate 25 mL/min (>60); Est Glom Filt Rate - Afr Amer 30 mL/min (>60); Globulin 4.7 g/dL (2.2-4.2); Glucose 104 mg/dL (74-106); High Density Lipoprotein 41 mg/dL; Potassium 4.1 mmol/L (3.5-5.1); Protein, Total 7.9 g/dL (6.4-8.2); Sodium Level 137 mmol/L (136-145); Thyroid Stim Hormone (TSH) 2.47 uIU/mL (0.358-3.74); Triglycerides 190 mg/dL; Very Low Density Lipoprotein 38 mg/dL (5-40)
== END 2023-01-22 23:59 | disposition home or self-care (01) ==
LOC: POLAB3 11:43
PROVIDERS: PCP Family Medicine Geriatric Medicine; Visit Provider Family Medicine Geriatric Medicine
DX: I10 Essential (primary) hypertension (principal); E78.5 Hyperlipidemia, unspecified; E55.9 Vitamin D deficiency, unspecified; R68.83 Chills (without fever)
CPT/HCPCS: 36415; 80053; 80061; 82306; 84443; 85025; 87635; 87804; 87807; C9803; U0003; U0005

== ENCOUNTER → 2023-01-22 | Outpatient (CLI) | payer MEDICARE, SELFPAY | END | disposition home or self-care (01) | LOC: PSN 09:53 | PROVIDERS: PCP Family Medicine Geriatric Medicine; Visit Provider Family Medicine Geriatric Medicine | DX: R68.83 Chills (without fever) (principal) | CPT/HCPCS: 87635; 87804; 87807; C9803; U0003; U0005 ==

== ENCOUNTER 2023-01-24 10:46 | Day surgery (SDC) | payer MEDICARE, SELFPAY ==
--- NOTE | 2023-01-24 11:03 | HP.PCM_ITS ---
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 [facility] Medical History (Updated 01/17/23 @ 10:12 by Candy Loera) Acute diarrhea LULY (acute kidney injury) Asthma Dunbar's palsy Bilateral hydronephrosis Bladder disease Blood disorder Bruising Cancer Cardiology follow-up encounter Cervical cancer Chronic renal failure, stage 4 (severe) Easy bruising Essential hypertension Former smoker Gout High anion gap metabolic acidosis History of biliary stent insertion History of cervical cancer History of Clostridium difficile infection History of COVID-19 History of irregular heartbeat History of renal disease Hx of cataract Hx of echocardiogram Hx of vertigo Hyperlipidemia Hypertension Hypokalemia Hyponatremia Leg cramps Lymphocytosis Mild intermittent asthma MRSA infection Near syncope Open wound Problem with dialysis access Sepsis Status post placement of implantable loop recorder (~03/29/20) Thyroid disease Urinary incontinence Wears dentures Home Medications albuterol sulfate 90 mcg/actuation aerosol inhaler (Ventolin HFA) 2 puff inhalation Q6H PRN Sob &/Or Wheezing 07/25/18 [History Last Taken 12/30/21 10:00] metoprolol tartrate 50 mg tablet 50 mg PO BID blood pressure 01/27/19 [History Last Taken 07/28/22] potassium chloride 20 mEq tablet,extended release(part/cryst) 20 meq PO DAILY supplement 09/01/20 [History Last Taken 09/23/20] amlodipine 2.5 mg tablet 2.5 mg PO DAILY BP #90 tabs 08/12/21 [Rx Last Taken 07/28/22] ipratropium bromide 42 mcg (0.06 %) nasal spray 1 spray intranasal BID 11/23/21 [History Last Taken 11/29/21 07:00] cholecalciferol (vitamin D3) 1,250 mcg (50,000 unit) capsule 1,250 mcg PO QMONTH #12 caps 08/02/22 [Rx Last Taken Unknown] calcitriol 0.25 mcg capsule 0.25 mcg PO FR 01/17/23 [History Last Taken Unknown] ciprofloxacin HCl 500 mg tablet 500 mg PO BID 01/17/23 [History Last Taken Unknown] levothyroxine 25 mcg tablet 25 mcg PO DAILY 01/17/23 [History Last Taken Unknown] Allergy/AdvReac Type Severity Reaction Status Date / Time pravastatin Allergy Severe Chest Verified 01/17/23 10:04 tightness procaine [From Novocain] Allergy Severe NEEDS Verified 01/17/23 10:04 FOLLOW-UP sulfamethoxazole Allergy Severe Shortness Verified 01/17/23 10:04 [From Bactrim] of breath trimethoprim [From Bactrim] Allergy Severe Shortness Verified 01/17/23 10:04 of breath [id number] Reductase Allergy Anaphylaxis Verified 01/17/23 10:04 Inhibitor clindamycin AdvReac Severe unsure of Verified 01/17/23 10:04 reaction methylprednisolone AdvReac Severe Pain in Verified 01/17/23 10:04 joints levofloxacin [From Levaquin] AdvReac UNSURE OF Verified 01/17/23 10:04 REACTION Family History Father , 32 yrs old CAD (coronary artery disease) History of coronary artery bypass surgery Mother Cancer Lung CA, Hx tobacco use. Surgical History (Updated 01/17/23 @ 10:12 by Candy Loera) History of arteriovenostomy for renal dialysis (~09/2021) History of cardiac catheterization (~01/08/18) History of cardiac catheterization History of cholecystectomy History of excision of mass History of hysterectomy History of loop recorder history of radium implant Hx of cystoscopy S/P arteriovenous (AV) fistula creation Social History (System 01/08/23 @ 14:54 by Lydia Ha) household members: spouse and children number of children: 6 current occupational status: retired history of recent travel: No Smoking Status: Former smoker second hand exposure: No alcohol intake: never substance use type: does not use what type of physical activity do you participate in: walking saurabh/buddhist: Non-Methodist/Independent seatbelt use: always do you feel safe at home: Yes additional social history: - Fernando
--- NOTE | 2023-01-24 11:04 | DCINST_ITS ---
Discharge Instructions Diet Discharge Diet: No restrictions Follow Up Care Please Follow Up With: Joshua Green MD Test Results: Test results from this visit will be discussed in further detail at your follow- up appointment, if applicable. Discharge Plan Admission Primary Reason for Your Visit: bilateral stent change Attending Provider: Joshua Green Primary Care Provider: Gerardo García Chi Discharge Orders/Prescriptions Prescriptions: Continued albuterol sulfate [Ventolin HFA] 90 mcg/actuation HFA aerosol inhaler 2 puff INHALATION Q6H PRN (Reason: Sob &/Or Wheezing) metoprolol tartrate 50 MG tablet 50 mg PO BID Label Comments: TAKE 1 TABLET BY MOUTH TWICE DAILY potassium chloride 20 MEQ tablet,ER particles/crystals 20 meq PO DAILY ipratropium bromide 42 mcg (0.06 %) spray,non-aerosol 1 spray INTRANASAL BID ciprofloxacin HCl 500 mg tablet 500 mg PO BID Label Comments: TAKE 3 DAYS PRIOR TO OR-PER DR. GREEN calcitriol 0.25 mcg capsule 0.25 mcg PO FR levothyroxine 25 mcg tablet 25 mcg PO DAILY Label Comments: PT RAN OUT OF THIS MED-ENCOURAGED TO CALL PCP REGARDING amlodipine 2.5 mg tablet 2.5 mg PO DAILY Qty: 90 3RF cholecalciferol (vitamin D3) 1,250 mcg (50,000 unit) capsule 1,250 mcg PO QMONTH Qty: 12 1RF Referrals / Follow Up: Gerardo García Chi, MD [Primary Care Provider] - Disposition Disposition (needs filled in before D/C Order can be placed): Home, Self Care
[2023-01-24 11:13] VITALS: BP 144/73; PULSE 74; RESP 18; TEMP 36.3; O2SAT 97; BMI 29.3
[2023-01-24] MEDS: Lactated Ringers 1,000 ML 15 ML IV (11:21)
[2023-01-24] MEDS: Cefazolin 2 GM in 0.9% Normal Saline 100 ML IV (12:06)
[2023-01-24 12:40] VITALS: BP 115/70; BP 144/73; PULSE 65; RESP 16; TEMP 36.4; O2SAT 96
[2023-01-24 12:45] VITALS: BP 119/64; BP 144/73; PULSE 68; RESP 16; O2SAT 97
[2023-01-24 12:50] VITALS: BP 125/69; BP 144/73; PULSE 66; RESP 16; O2SAT 97
[2023-01-24 12:56] VITALS: BP 104/60; BP 144/73; PULSE 63; RESP 16; TEMP 36.6; O2SAT 97
--- NOTE | 2023-01-24 13:18 | OP.PCM_ITS ---
Report of Operation Date of Procedure: 01/24/23 Pre-Operative Diagnosis: Bilateral ureteral obstruction from radiation in the p ast Post-Operative Diagnosis: The same Surgery/Procedure Performed:: Cystoscopy left retrograde pyelogram left stent placed, right retrograde pyelogram and right stent placement Description of Surgical Findings:: Patient was taken back to the operating room and underwent MAC local anesthesia she was placed in dorsolithotomy position. The urethra vaginal area prepped and draped in usual sterile fashion within the bladder with a 21 Bangladeshi rigid cystourethroscope I first grabbed the left stent pulled out the meatus put a wire up the stent and then over the wire put in the Pollick catheter performed a retrograde pyelogram delineated the anatomy did put a wire up the left side and then placed a new 6 Bangladeshi by 26 cm stent the stent went up and coiled in proper position. I then went to the right side grabbed the existing stent on the right side was an old stent pulled out the meatus and then put the wire up to that stent and then put a retrograde pyelogram and confirmed the anatomy but a wire and coiled in the right kidney and then over the wire I placed a new stent there is a 6 Bangladeshi by 26 cm stent was a stent was in good position during the bladder patient has had a reversed taken back to PACU in good condition plan to see her back in the office in 3 to 4 months Surgeon: Joshua Strickland Type of Anesthesia: General Drains: new stents Admit VTE Documentation VTE Present on Admission: No VTE Mechan Device Prophylaxis: SCD's VTE Pharm Prophylaxis ordered?: No
[2023-01-24 14:01] VITALS: BP 136/59; BP 144/73; PULSE 67; RESP 16; TEMP 36.4; O2SAT 96
== END 2023-01-24 14:02 | disposition home or self-care (01) ==
LOC: SDC 10:53 → AC 10:54
PROVIDERS: PCP Family Medicine Geriatric Medicine; Referring Provider Urology; Visit Provider Urology
PROC: (CPT 52332; principal; 2023-01-24 12:55)
DX: N13.1 Hydronephrosis with ureteral stricture, not elsewhere classified (principal); C53.9 Malignant neoplasm of cervix uteri, unspecified; N18.5 Chronic kidney disease, stage 5; I12.9 Hypertensive chronic kidney disease with stage 1 through stage 4 chronic kidney disease, or unspecified chronic kidney disease; J45.909 Unspecified asthma, uncomplicated; Z86.16 Personal history of COVID-19; Z79.899 Other long term (current) drug therapy; Z87.891 Personal history of nicotine dependence
CPT/HCPCS: 52332; 00910; 76000; J7120; C1769; C2617; J2405

== ENCOUNTER → 2023-02-22 | Outpatient (CLI) | payer MEDICARE, SELFPAY ==
--- NOTE | 2023-02-22 16:52 | RAD_ITS ---
STUDY: X-RAY - CERVICAL SPINE REASON FOR EXAM: Female, 72 years old. Posterior pain after sleeping wrong. TECHNIQUE: 3 view(s) of the cervical spine were obtained. COMPARISON: None FINDINGS: Normal anterior atlantoaxial articulation. Normal odontoid process. Normal cervical lordosis. Normal vertebral bodies and endplates. Normal disc space heights. There is no evidence of acute fracture or loss of vertebral axial height. There is maintenance of normal alignment. The soft tissue structures are unremarkable. RAD/Cerv Spine 2 or 3 Views IMPRESSION: No visualized abnormality of the Electronically Signed: Ryan Dooley DO at 17:12 EDT ,
== END | disposition home or self-care (01) ==
LOC: RAD 16:39
PROVIDERS: PCP Family Medicine Geriatric Medicine; Referring Provider Family Medicine Geriatric Medicine; Visit Provider Family Medicine Geriatric Medicine
DX: M54.2 Cervicalgia (principal)
CPT/HCPCS: 72040

== ENCOUNTER → 2023-04-03 | Outpatient (CLI) | payer MEDICARE, SELFPAY ==
--- NOTE | 2023-04-03 07:13 | US_ITS ---
STUDY: ABDOMINAL ULTRASOUND - RIGHT UPPER QUADRANT REASON FOR VISIT: Female, 72 years old. Abdominal pain. TECHNIQUE: Ultrasound evaluation of the right upper quadrant was performed with real-time and static decker-scale imaging. TECHNICAL QUALITY: Adequate. COMPARISON: CT of the abdomen and pelvis, April 17, 2019. FINDINGS: Liver: The liver measures 14.8 cm. There is normal echogenicity of the liver. The bile ducts are within normal limits. There is hepatic color flow. The direction of portal flow is hepatopetal. There is no demonstrated mass lesion. Irregular area of echogenic tissue in the portal hilum thought to be focal fatty filtration. Gallbladder: The patient is status post cholecystectomy. Common Bile Duct (C.B.D.): The common bile duct measures 12 mm. No visualized filling defect. Pancreas: Normal size of the head, body and tail of the pancreas. There is normal echogenicity of the pancreas. There is no demonstrated pancreatic mass or cyst. Right Kidney: Normal size of the right kidney. The right kidney measures 9.3 cm. Normal renal cortex. The right cortex measures 1.2 cm. There is a 3.5 x 2.3 x 3.2 cm simple cyst extending off the lower pole. There is no right hydronephrosis. US/Abdomen Limited IMPRESSION: 1. Probable focal fatty infiltration of the portal hilum. 2. Prominent CBD. This is expected in a postcholecystectomy patient and was present on the prior CT. 3. Stable right renal cyst. Electronically Signed: Ryan Dooley DO at 17:12 EDT ,
--- NOTE | 2023-04-03 07:15 | RAD_ITS ---
STUDY: X-RAY - ABDOMEN/PELVIS REASON FOR EXAM: Female, 72 years old. Abdominal pain. TECHNIQUE: Two AP supine views of the abdomen and pelvis. COMPARISON: None. FINDINGS: Normal visualized lung bases. There is an unremarkable bowel gas pattern. There is no demonstrated free abdominal air. The visualized liver, spleen and kidneys are grossly normal in size and morphology. There are bilateral ureteral stents. No visualized renal or ureteral calculi. There are calcified phleboliths in the pelvis. There are densities along with pelvic sidewall which appear vascular. These were noted on a CT of April 17, 2019 and appear unchanged. Normal visualized osseous structures. RAD/Abdomen Single View IMPRESSION: 1. Bilateral ureteral stents. 2. No evidence of acute intra-abdominal process. Electronically Signed: Ryan Dooley DO at 16:56 EDT ,
[2023-04-03 07:25] LABS: Absolute Lymphocyte Count 8.29 X10^3/uL (0.83-4.51); Absolute Neutrophil Count 6.3 X10^3/uL (2.0-7.7); Basophil% 0.6 % (0-1); Eosinophil# 0.16 X10^3/uL; Hematocrit 45.9 % (37-47); Hemoglobin 14.9 g/dL (12.0-15.0); Lymphocyte # 8.29 X10^3/ul (0.83-4.51); Lymphocyte % 51.8 % (19-41); Mean Corp Hgb Conc 32.5 g/dL (32-36); Mean Corpuscular Hgb 31.8 pg (27.0-32.0); Mean Corpuscular Volume 97.9 fL (81-99); Mean Platelet Vol. 10.1 fl (6.2-12.0); Monocyte% 6.9 % (0-10); NRBC Flagged by Analyzer 0 % (0-5); Neutrophil # 6.29 X10^3/uL (2.7-7.7); Neutrophil % 39.4 % (47-70); POSITIVE DIFFERENTIAL YES; POSITIVE MORPHOLOGY YES; Platelet Count 340 K/mm3 (150-450); RBC Distribution Width CV 14.5 % (11.6-14.6); RBC Distribution Width SD 52.1 fl (35.1-43.9); Red Blood Count 4.69 M/mm3 (4.2-5.4)
[2023-04-03 07:27] LABS: Color, Urine Yellow (Yellow); Glucose, Dipstick Normal (Normal); Ketone-Dipstick Negative (Negative); Leukocyte Esterase-Dipstick 500 /ul (Negative); Nitrite-Dipstick Positive (Negative); Occult Blood-Urine 150 /ul (Negative); Protein-Dipstick 100 mg/dl (Negative); Urine Bilirubin Dipstick Negative (Negative); Urine Clarity Cloudy (Clear); Urine Urobilinogen Normal (Normal)
[2023-04-03 07:29] LABS: Differential Indicated SCAN CRITERIA MET
[2023-04-03 07:59] LABS: ALB/GLOB Ratio 0.5 RATIO (0.9-2.4); AST(SGOT) 16 U/L (15-37); Alanine Aminotransfer ALT/SGPT 15 U/L (13-56); Albumin, Serum 2.7 g/dL (3.2-5.0); Alkaline Phosphatase 94 U/L (45-117); Anion Gap 7 (5-15); BUN 18 mg/dL (7-18); BUN/Creat Ratio 8.9 RATIO (10-20); Calcium,Total 9.2 mg/dL (8.5-10.1); Chloride 107 mmol/L (98-107); Creatinine, Serum 2.02 mg/dL (0.55-1.02); EST Glomerular Filtration Rate 26 mL/min (>60); Est Glom Filt Rate - Afr Amer 31 mL/min (>60); Globulin 5.2 g/dL (2.2-4.2); Glucose 113 mg/dL (74-106); Potassium 4.1 mmol/L (3.5-5.1); Protein, Total 7.9 g/dL (6.4-8.2); Sodium Level 139 mmol/L (136-145)
[2023-04-03 08:18] LABS: Reactive Lymphocyte 1+
== END | disposition home or self-care (01) ==
LOC: US 06:55
PROVIDERS: PCP Family Medicine Geriatric Medicine; Referring Provider Family Medicine Geriatric Medicine; Visit Provider Family Medicine Geriatric Medicine
DX: R10.9 Unspecified abdominal pain (principal)
CPT/HCPCS: 36415; 74018; 76705; 80053; 81002; 85025

== ENCOUNTER → 2023-05-10 | Outpatient (CLI) | payer MEDICARE, SELFPAY | END | disposition home or self-care (01) | LOC: LABSPEC 16:31 | PROVIDERS: PCP Family Medicine Geriatric Medicine; Referring Provider Urology; Visit Provider Urology | DX: R31.0 Gross hematuria (principal) | CPT/HCPCS: 87077; 87086; 87088; 87186 ==

== ENCOUNTER → 2023-05-11 | Outpatient (CLI) | payer MEDICARE, SELFPAY | END | disposition home or self-care (01) | LOC: LABSPEC 16:39 | PROVIDERS: PCP Family Medicine Geriatric Medicine; Referring Provider Family Medicine Geriatric Medicine; Visit Provider Family Medicine Geriatric Medicine | DX: R30.0 Dysuria (principal) | CPT/HCPCS: 87086; 87088; 87186 ==

== ENCOUNTER → 2023-05-14 | Outpatient (CLI) | payer MEDICARE, SELFPAY | END | disposition home or self-care (01) | LOC: PSN 08:28 | PROVIDERS: PCP Family Medicine Geriatric Medicine; Referring Provider Family Medicine Geriatric Medicine; Visit Provider Family Medicine Geriatric Medicine | DX: U07.1 COVID-19 (principal); R68.83 Chills (without fever) | CPT/HCPCS: 87635; 87804; 87807; C9803 ==

== ENCOUNTER 2023-05-16 13:55 | Outpatient (CLI) | payer MEDICARE, SELFPAY ==
[2023-05-16 14:05] VITALS: BP 119/68; PULSE 73; RESP 16; TEMP 35.9; O2SAT 97; BMI 27.6
[2023-05-16 14:56] VITALS: BP 121/68; PULSE 67; RESP 16; TEMP 36.1; O2SAT 96
[2023-05-16 15:09] VITALS: BP 116/64; PULSE 64; RESP 16; TEMP 36.2; O2SAT 95
== END 2023-05-16 13:56 | disposition home or self-care (01) ==
LOC: MEDOUTP 13:55
PROVIDERS: PCP Family Medicine Geriatric Medicine; Referring Provider Urology; Visit Provider Urology
DX: N30.01 Acute cystitis with hematuria (principal)
CPT/HCPCS: 96365

== ENCOUNTER 2023-05-17 13:51 | Outpatient (CLI) | payer MEDICARE, SELFPAY ==
[2023-05-17 13:56] VITALS: BP 136/79; PULSE 70; RESP 18; TEMP 35.7
[2023-05-17 14:48] VITALS: BP 122/65; PULSE 66; RESP 16; TEMP 35.8; O2SAT 99
== END 2023-05-17 13:52 | disposition home or self-care (01) ==
LOC: MEDOUTP 13:51
PROVIDERS: PCP Family Medicine Geriatric Medicine; Referring Provider Urology; Visit Provider Urology
DX: N30.01 Acute cystitis with hematuria (principal)
CPT/HCPCS: 96365; J7050; A4216

== ENCOUNTER 2023-05-18 13:25 | Outpatient (CLI) | payer MEDICARE, SELFPAY ==
[2023-05-18 13:55] VITALS: BP 149/71; PULSE 72; RESP 16; TEMP 36; O2SAT 98; BMI 27.3
[2023-05-18 15:04] VITALS: BP 114/63; PULSE 74; RESP 16; TEMP 36.1; O2SAT 97
== END 2023-05-18 13:26 | disposition home or self-care (01) ==
LOC: MEDOUTP 13:25
PROVIDERS: PCP Family Medicine Geriatric Medicine; Referring Provider Urology; Visit Provider Urology
DX: N30.01 Acute cystitis with hematuria (principal)
CPT/HCPCS: 96365; J7050; A4216

== ENCOUNTER 2023-05-19 12:55 | Outpatient (CLI) | payer MEDICARE, SELFPAY ==
[2023-05-19 13:11] VITALS: BP 130/71; PULSE 72; RESP 18; TEMP 36.7; O2SAT 97
== END 2023-05-19 13:58 | disposition home or self-care (01) ==
LOC: MEDOUTP 12:55 → MS3 12:56
PROVIDERS: PCP Family Medicine Geriatric Medicine; Referring Provider Urology; Visit Provider Urology
DX: N30.01 Acute cystitis with hematuria (principal)
CPT/HCPCS: 96365; J7050

== ENCOUNTER 2023-05-20 12:45 | Outpatient (CLI) | payer MEDICARE, SELFPAY ==
[2023-05-20 13:04] VITALS: BP 131/70; PULSE 73; RESP 18; TEMP 36.4; O2SAT 97
== END 2023-05-20 13:40 | disposition home or self-care (01) ==
LOC: MEDOUTP 12:46 → MS3 12:47
PROVIDERS: PCP Family Medicine Geriatric Medicine; Referring Provider Urology; Visit Provider Urology
DX: N30.01 Acute cystitis with hematuria (principal)
CPT/HCPCS: 96365

== ENCOUNTER 2023-05-21 12:48 | Outpatient (CLI) | payer MEDICARE, SELFPAY ==
[2023-05-21 13:11] VITALS: BP 133/66; PULSE 76; RESP 16; TEMP 35.5; O2SAT 98; BMI 27.6
[2023-05-21 14:53] VITALS: BP 126/66; PULSE 75; RESP 16; TEMP 35.6; O2SAT 97
== END 2023-05-21 12:49 | disposition home or self-care (01) ==
LOC: MEDOUTP 12:48
PROVIDERS: PCP Family Medicine Geriatric Medicine; Referring Provider Urology; Visit Provider Urology
DX: N30.01 Acute cystitis with hematuria (principal)
CPT/HCPCS: 96365; J7050; A4216

== ENCOUNTER 2023-05-22 12:51 | Outpatient (CLI) | payer MEDICARE, SELFPAY ==
[2023-05-22 13:26] VITALS: BP 144/83; PULSE 79; RESP 18; TEMP 36.6; O2SAT 98
[2023-05-22] MEDS: 0.9% Saline Lock 10 ML Syringe IV (13:48)
== END 2023-05-22 14:17 | disposition home or self-care (01) ==
LOC: MEDOUTP 12:52 → MS3 12:53
PROVIDERS: PCP Family Medicine Geriatric Medicine; Referring Provider Urology; Visit Provider Urology
DX: N30.01 Acute cystitis with hematuria (principal)
CPT/HCPCS: 96365; J7050; A4216

== ENCOUNTER → 2023-05-28 | Outpatient (CLI) | payer MEDICARE, SELFPAY | END | disposition home or self-care (01) | PROVIDERS: PCP Family Medicine Geriatric Medicine; Referring Provider Urology; Visit Provider Urology | DX: N13.1 Hydronephrosis with ureteral stricture, not elsewhere classified (principal) | CPT/HCPCS: 87077; 87086; 87088; 87186 ==

== ENCOUNTER 2023-06-05 12:50 | Outpatient (CLI) | payer MEDICARE, SELFPAY ==
[2023-06-05 12:55] VITALS: BP 142/68; PULSE 78; RESP 14; TEMP 35.8; O2SAT 95; BMI 28.1
[2023-06-05] MEDS: 0.9% NaCl Peripheral Flush Adult/Peds IV (13:25)
[2023-06-05] MEDS: 0.9% NaCl IVPB Med Flush (250 mL) 15 ML IV (13:26)
[2023-06-05 14:18] VITALS: BP 140/62; PULSE 77
== END 2023-06-05 12:51 | disposition home or self-care (01) ==
LOC: MEDOUTP 12:50
PROVIDERS: PCP Family Medicine Geriatric Medicine; Referring Provider Urology; Visit Provider Urology
DX: N30.01 Acute cystitis with hematuria (principal)
CPT/HCPCS: 96365; J7050; A4216

== ENCOUNTER 2023-06-06 12:54 | Outpatient (CLI) | payer MEDICARE, SELFPAY ==
[2023-06-06 13:00] VITALS: BP 136/71; PULSE 81; RESP 16; TEMP 35.9; O2SAT 96; BMI 28.1
[2023-06-06] MEDS: 0.9% NaCl Peripheral Flush Adult/Peds IV (13:08)
[2023-06-06] MEDS: 0.9% NaCl IVPB Med Flush (250 mL) 15 ML IV (13:08)
[2023-06-06 14:07] VITALS: BP 122/69; PULSE 79
== END 2023-06-06 12:55 | disposition home or self-care (01) ==
LOC: MEDOUTP 12:55
PROVIDERS: PCP Family Medicine Geriatric Medicine; Referring Provider Urology; Visit Provider Urology
DX: N30.01 Acute cystitis with hematuria (principal)
CPT/HCPCS: 96365; J7050; A4216

== ENCOUNTER 2023-06-07 12:48 | Outpatient (CLI) | payer MEDICARE, SELFPAY ==
[2023-06-07] MEDS: 0.9% NaCl IVPB Med Flush (250 mL) 15 ML IV (12:58)
[2023-06-07] MEDS: 0.9% NaCl Peripheral Flush Adult/Peds IV (12:58)
[2023-06-07 13:11] VITALS: BP 123/69; PULSE 75; RESP 16; TEMP 36.6; O2SAT 98; BMI 28.1
[2023-06-07 14:17] VITALS: BP 129/75; PULSE 72; RESP 16; O2SAT 96
== END 2023-06-07 12:49 | disposition home or self-care (01) ==
LOC: MEDOUTP 12:49
PROVIDERS: PCP Family Medicine Geriatric Medicine; Referring Provider Urology; Visit Provider Urology
DX: N30.01 Acute cystitis with hematuria (principal)
CPT/HCPCS: 96365; J7050; A4216

== ENCOUNTER 2023-06-08 08:51 | Day surgery (SDC) | payer MEDICARE, SELFPAY ==
[2023-06-08 09:51] VITALS: BP 143/63; PULSE 74; RESP 18; TEMP 36.7; O2SAT 98; BMI 27.9
[2023-06-08] MEDS: Lactated Ringers 1,000 ML 15 ML IV (09:57)
--- NOTE | 2023-06-08 10:33 | PCM.HP.STD ---
[facility] General General Date of Service: 06/08/23 Chief Complaint: Bilateral stent placement [facility] Narrative TODD HERRERA, is a 72 F who presents for stent changes history of chronic obstruction both the ureters from prior treatment with radiation therapy in the past she is due for stent change she was treated preoperatively with antibiotics for resistant infection. [facility], [facility] Medical History (Updated 06/01/23 @ 09:31 by Ethel Rosenbaum) Acute diarrhea LULY (acute kidney injury) Asthma Dunbar's palsy Bilateral hydronephrosis Bladder disease Blood disorder Bruising Cancer Cardiology follow-up encounter Cervical cancer Chronic renal failure, stage 4 (severe) Easy bruising Essential hypertension Former smoker Gout High anion gap metabolic acidosis History of biliary stent insertion History of cervical cancer History of Clostridium difficile infection History of COVID-19 History of irregular heartbeat History of renal disease Hx of cataract Hx of echocardiogram Hx of vertigo Hyperlipidemia Hypertension Hypokalemia Hyponatremia Leg cramps Lymphocytosis Mild intermittent asthma MRSA infection Near syncope Problem with dialysis access Sepsis Status post placement of implantable loop recorder (~03/29/20) Thyroid disease Urinary incontinence UTI (urinary tract infection) Wears dentures Home Medications albuterol sulfate 90 mcg/actuation aerosol inhaler (Ventolin HFA) 2 puff inhalation Q6H PRN Sob &/Or Wheezing 07/25/18 [History Last Taken 12/30/21 10:00] metoprolol tartrate 50 mg tablet 50 mg PO BID blood pressure 01/27/19 [History Last Taken 06/08/23] potassium chloride 20 mEq tablet,extended release(part/cryst) 20 meq PO DAILY supplement 09/01/20 [History Last Taken 09/23/20] amlodipine 2.5 mg tablet 2.5 mg PO DAILY BP #90 tabs 08/12/21 [Rx Last Taken 06/08/23] ipratropium bromide 42 mcg (0.06 %) nasal spray 1 spray intranasal BID 11/23/21 [History Last Taken 11/29/21 07:00] cholecalciferol (vitamin D3) 1,250 mcg (50,000 unit) capsule 1,250 mcg PO QMONTH #12 caps 08/02/22 [Rx Last Taken Unknown] calcitriol 0.25 mcg capsule 0.25 mcg PO FR 01/17/23 [History Last Taken Unknown] pantoprazole 40 mg tablet,delayed release 40 mg PO DAILY 03/27/23 [History Last Taken 06/08/23] Allergy/AdvReac Type Severity Reaction Status Date / Time pravastatin Allergy Severe Chest Verified 06/08/23 09:50 tightness procaine [From Novocain] Allergy Severe NEEDS Verified 06/08/23 09:50 FOLLOW-UP sulfamethoxazole Allergy Severe Shortness Verified 06/08/23 09:50 [From Bactrim] of breath trimethoprim [From Bactrim] Allergy Severe Shortness Verified 06/08/23 09:50 of breath [id number] Reductase Allergy Anaphylaxis Verified 06/08/23 09:50 Inhibitor clindamycin AdvReac Severe unsure of Verified 06/08/23 09:50 reaction methylprednisolone AdvReac Severe Pain in Verified 06/08/23 09:50 joints levofloxacin [From Levaquin] AdvReac UNSURE OF Verified 06/08/23 09:50 REACTION Family History Father , 32 yrs old CAD (coronary artery disease) History of coronary artery bypass surgery Mother Cancer Lung CA, Hx tobacco use. Surgical History History of arteriovenostomy for renal dialysis (~09/2021) History of cardiac catheterization (~01/08/18) History of cardiac catheterization History of cholecystectomy History of excision of mass History of hysterectomy History of loop recorder history of radium implant Hx of cystoscopy S/P arteriovenous (AV) fistula creation Social History household members: spouse and children number of children: 6 current occupational status: retired history of recent travel: No Smoking Status: Former smoker second hand exposure: No alcohol intake: never substance use type: does not use what type of physical activity do you participate in: walking saurabh/gnosticism: Non-Church/Independent seatbelt use: always do you feel safe at home: Yes additional social history: - Fernando Vital Signs Vital Signs Vital Signs: 06/08/23 09:51 06/08/23 09:51 Temperature 98.0 F Temperature Source Temporal Pulse Rate 74 Respiratory Rate 18 Respiratory Pattern Normal Blood Pressure 143/63 H Blood Pressure Mean 89 Blood Pressure Source Monitor Blood Pressure Position Semi-Fowlers Blood Pressure Location Right Arm Pulse Ox 98 Oxygen Delivery Method Room Air Weight Weight: 83.3 kg Body Mass Index (BMI) 27.9
--- NOTE | 2023-06-08 10:34 | DCINST_ITS ---
Discharge Instructions Diet Discharge Diet: No restrictions Dressing / Incision Call your doctor if your incision/area has: Continuous Slow Oozing, Increased Pain/ Swelling, Increased Redness and Foul Smelling Discharge Call your doctor if you observe: Fever of 101 or Higher, Numbness or Tingling, Shortness of breath, Dizziness, Calf discomfort and Uncontrolled pain Follow Up Care Please Follow Up With: Joshua Strickland MD Test Results: Test results from this visit will be discussed in further detail at your follow- up appointment, if applicable. Discharge Plan Admission Primary Reason for Your Visit: Stent changes Attending Provider: Joshua Strickland Primary Care Provider: Gerardo García Chi Discharge Orders/Prescriptions Prescriptions: Continued albuterol sulfate [Ventolin HFA] 90 mcg/actuation HFA aerosol inhaler 2 puff INHALATION Q6H PRN (Reason: Sob &/Or Wheezing) pantoprazole 40 mg tablet,delayed release (DR/EC) 40 mg PO DAILY Hold Instructions: Order Completed metoprolol tartrate 50 MG tablet 50 mg PO BID Patient Comments: TAKE 1 TABLET BY MOUTH TWICE DAILY potassium chloride 20 MEQ tablet,ER particles/crystals 20 meq PO DAILY ipratropium bromide 42 mcg (0.06 %) spray,non-aerosol 1 spray INTRANASAL BID calcitriol 0.25 mcg capsule 0.25 mcg PO FR amlodipine 2.5 mg tablet 2.5 mg PO DAILY Qty: 90 3RF cholecalciferol (vitamin D3) 1,250 mcg (50,000 unit) capsule 1,250 mcg PO QMONTH Qty: 12 1RF Referrals / Follow Up: Joshua Strickland MD [Med Staff - Active Staff] - Gerardo García Chi, MD [Primary Care Provider] - Disposition Disposition (needs filled in before D/C Order can be placed): Home, Self Care
[2023-06-08] MEDS: Cefazolin 2 GM in 0.9% Normal Saline 100 ML IV (11:08)
--- NOTE | 2023-06-08 11:21 | OP.PCM_ITS ---
Report of Operation Date of Procedure: 06/08/23 Pre-Operative Diagnosis: Bilateral ureteral obstruction Post-Operative Diagnosis: Bilateral ureter obstruction history of radiation in the past Surgery/Procedure Performed:: Cystoscopy and bilateral stent change and bilateral retrograde pyelograms Description of Surgical Findings:: Patient was taken back to the operating room after induction of general anesthesia, the patient was placed in dorsolithotomy position. The urethra and genitals were prepped and draped in usual sterile fashion. Using a 21 [place] African rigid cystourethroscope the entire length of the urethra was normal then went into the bladder. Identified the trigone the left and right ureteral orifice. I then cannulated the right orifice and advanced a wire up into the kidney. I then backloaded a 5 [place] African open ended catheter over the wire and injected contrast to delineate the anatomy. After the retrograde was performed I then used fluoroscopic images and guidance to advanced a wire up into the kidney and over the 0.038 glidewire I advanced a 6 [place] African by 26 cm double pigtail stent. I then pulled the 0.038 Glidewire off and the stent coiled in the kidney bladder good position. The bladder was then drained. We confirmed the position of the stent by fluoroscopy. I then cannulated the right orifice and advanced a wire up into the kidney. I then backloaded a 5 [place] African open ended catheter over the wire and injected contrast to delineate the anatomy. After the retrograde was performed I then used fluoroscopic images and guidance to advanced a wire up into the kidney and over the 0.038 glidewire I advanced a 6 [place] African by 26 cm double pigtail stent. I then pulled the 0.038 Glidewire off and the stent coiled in the kidney bladder good position. The bladder was then drained. We confirmed the position of the stent by fluoroscopy. Patient anesthetic was reversed and was taken back to the PACU in good condition Surgeon: Joshua Strickland Type of Anesthesia: General Drains: stent 6x 26 b/l Admit VTE Documentation VTE Present on Admission: No VTE Mechan Device Prophylaxis: SCD's VTE Pharm Prophylaxis ordered?: No
[2023-06-08 11:29] VITALS: BP 120/104; BP 143/63; PULSE 78; RESP 16; TEMP 37.2; O2SAT 94
[2023-06-08 11:35] VITALS: BP 115/61; BP 143/63; PULSE 72; RESP 16; O2SAT 95
[2023-06-08 11:40] VITALS: BP 115/61; BP 143/63; PULSE 73; RESP 16; O2SAT 97
[2023-06-08 11:46] VITALS: BP 119/68; BP 143/63; PULSE 71; RESP 16; TEMP 36.8; O2SAT 97
[2023-06-08 12:03] VITALS: BP 143/63
== END 2023-06-08 12:20 | disposition home or self-care (01) ==
LOC: SDC 08:54 → AC 08:58
PROVIDERS: PCP Family Medicine Geriatric Medicine; Referring Provider Urology; Visit Provider Urology
PROC: (CPT 52332; principal; 2023-06-08 11:05)
DX: N13.5 Crossing vessel and stricture of ureter without hydronephrosis (principal); N18.4 Chronic kidney disease, stage 4 (severe); I12.9 Hypertensive chronic kidney disease with stage 1 through stage 4 chronic kidney disease, or unspecified chronic kidney disease; J45.909 Unspecified asthma, uncomplicated; Z86.16 Personal history of COVID-19; Z87.891 Personal history of nicotine dependence; Z79.899 Other long term (current) drug therapy
CPT/HCPCS: 52332; 76000; J7120; C1769; C2617; J2405

== ENCOUNTER → 2023-06-11 | Outpatient (CLI) | payer MEDICARE, SELFPAY ==
[2023-06-11 11:49] LABS: PTHIN 99.8 pg/mL (18.4-80.1)
[2023-06-11 11:50] LABS: Albumin, Serum 2.7 g/dL (3.2-5.0); BUN 14 mg/dL (7-18); BUN/Creat Ratio 8.2 RATIO (10-20); Calcium,Total 8.3 mg/dL (8.5-10.1); Chloride 105 mmol/L (98-107); Creatinine, Serum 1.71 mg/dL (0.55-1.02); EST Glomerular Filtration Rate 31 mL/min (>60); Est Glom Filt Rate - Afr Amer 38 mL/min (>60); Glucose 98 mg/dL (74-106); Phosphorus 3.6 mg/dL (2.5-4.9); Potassium 4.1 mmol/L (3.5-5.1); Sodium Level 136 mmol/L (136-145)
== END | disposition home or self-care (01) ==
LOC: LAB 10:40
PROVIDERS: PCP Family Medicine Geriatric Medicine; Referring Provider Internal Medicine Nephrology; Visit Provider Internal Medicine Nephrology
DX: N25.81 Secondary hyperparathyroidism of renal origin (principal); N18.4 Chronic kidney disease, stage 4 (severe)
CPT/HCPCS: 36415; 80069; 83970

== ENCOUNTER → 2023-06-19 | Outpatient (CLI) | payer MEDICARE, SELFPAY ==
[2023-06-19 20:32] LABS: M R Staph aureus DNA By PCR Negative (Negative); Probe Check PASS; Specimen Processing Control PASS; Staph aureus DNA By PCR NEGATIVE (Negative)
== END | disposition home or self-care (01) ==
LOC: POLAB3 16:58
PROVIDERS: PCP Family Medicine Geriatric Medicine; Visit Provider Family Medicine Geriatric Medicine
DX: L03.114 Cellulitis of left upper limb (principal); S51.802A Unspecified open wound of left forearm, initial encounter; X58.XXXA Exposure to other specified factors, initial encounter
CPT/HCPCS: 87070; 87205; 87640

== ENCOUNTER → 2023-07-20 | Outpatient (CLI) | payer MEDICARE, SELFPAY | END | disposition home or self-care (01) | LOC: PSN 08:56 | PROVIDERS: PCP Family Medicine Geriatric Medicine; Referring Provider Family Medicine Geriatric Medicine; Visit Provider Family Medicine Geriatric Medicine | DX: R68.83 Chills (without fever) (principal) | CPT/HCPCS: 87635; 87804; 87807 ==

== ENCOUNTER 2023-08-02 12:10 | Inpatient (IN) | payer MEDICARE, SELFPAY ==
[2023-08-02] VITALS (7 sets, daily range): BP systolic 121–145; BP diastolic 67–82; PULSE 89–126; RESP 18–23; TEMP 36.5–38.2; O2SAT 94–97; BMI 28.4; BMI 28.2
--- NOTE | 2023-08-02 12:15 | EX.ED.DYSGE1 ---
HPI History of Present Illness Chief Complaint: Fever PFSH PFSH Medical History Acute diarrhea LULY (acute kidney injury) Asthma Dunbar's palsy Bilateral hydronephrosis Bladder disease Blood disorder Bruising Cancer Cardiology follow-up encounter Cervical cancer Chronic renal failure, stage 4 (severe) Easy bruising Essential hypertension Former smoker Gout High anion gap metabolic acidosis History of biliary stent insertion History of cervical cancer History of Clostridium difficile infection History of COVID-19 History of irregular heartbeat History of renal disease Hx of cataract Hx of echocardiogram Hx of vertigo Hyperlipidemia Hypertension Hypokalemia Hyponatremia Leg cramps Lymphocytosis Mild intermittent asthma MRSA infection Near syncope Problem with dialysis access Sepsis Status post placement of implantable loop recorder (~03/29/20) Thyroid disease Urinary incontinence UTI (urinary tract infection) Wears dentures Home Medications albuterol sulfate 90 mcg/actuation aerosol inhaler (Ventolin HFA) 2 puff inhalation Q6H PRN Sob &/Or Wheezing 07/25/18 [History Last Taken 08/01/23] metoprolol tartrate 50 mg tablet 50 mg PO BID blood pressure 01/27/19 [History Last Taken 08/01/23] potassium chloride 20 mEq tablet,extended release(part/cryst) 20 meq PO DAILY supplement 09/01/20 [History Last Taken 08/01/23] amlodipine 2.5 mg tablet 2.5 mg PO DAILY BP #90 tabs 08/12/21 [Rx Last Taken 08/01/23] ipratropium bromide 42 mcg (0.06 %) nasal spray 2 spray intranasal DAILY 11/23/21 [History Last Taken 08/01/23] pantoprazole 40 mg tablet,delayed release 40 mg PO DAILY 03/27/23 [History Last Taken 08/01/23] Allergy/AdvReac Type Severity Reaction Status Date / Time pravastatin Allergy Severe Chest Verified 06/08/23 09:50 tightness procaine [From Novocain] Allergy Severe NEEDS Verified 06/08/23 09:50 FOLLOW-UP sulfamethoxazole Allergy Severe Shortness Verified 06/08/23 09:50 [From Bactrim] of breath trimethoprim [From Bactrim] Allergy Severe Shortness Verified 06/08/23 09:50 of breath [id number] Reductase Allergy Anaphylaxis Verified 06/08/23 09:50 Inhibitor clindamycin AdvReac Severe unsure of Verified 06/08/23 09:50 reaction methylprednisolone AdvReac Severe Pain in Verified 06/08/23 09:50 joints levofloxacin [From Levaquin] AdvReac UNSURE OF Verified 06/08/23 09:50 REACTION Family History Father , 32 yrs old CAD (coronary artery disease) History of coronary artery bypass surgery Mother Cancer Lung CA, Hx tobacco use. Surgical History History of arteriovenostomy for renal dialysis (~09/2021) History of cardiac catheterization (~01/08/18) History of cardiac catheterization History of cholecystectomy History of excision of mass History of hysterectomy History of loop recorder history of radium implant Hx of cystoscopy S/P arteriovenous (AV) fistula creation Social History household members: spouse and children number of children: 6 current occupational status: retired history of recent travel: No Smoking Status: Former smoker second hand exposure: No alcohol intake: never substance use type: does not use what type of physical activity do you participate in: walking saurabh/uatsdin: Non-Roman Catholic/Independent seatbelt use: always do you feel safe at home: Yes additional social history: - Fernando EXAM Physical Exam Const Vital Signs: 08/02/23 12:11 08/02/23 12:22 Temperature 100.7 F H Temperature Source Temporal Pulse Rate 126 H Respiratory Rate 20 H Respiratory Effort Normal Non-Labored Respiratory Pattern Normal Blood Pressure 135/82 H Blood Pressure Mean 99 Pulse Ox 94 Oxygen Delivery Method Room Air MDM MDM MDM Narrative Medical decision making narrative: HISTORY OF PRESENT ILLNESS: 72-year-old female here for fever weakness and nausea. States she had history of sepsis secondary to UTI in the past this feels similar. She further states this began this morning. Notes 1 episode of nonbloody nonbilious vomitus. Denies chest pain shortness of breath cough, sick contacts. No abdominal pain. No urinary complaints. REVIEW OF SYSTEMS: Pertinent positives: Fever, weakness and nausea Pertinent negatives: Chest pain, shortness of breath, cough PHYSICAL EXAM: Nursing triage notes reviewed, Vital signs reviewed Constitutional: please see mdm HENT: MMM Eyes: Pupils equal round and reactive to light, Extraocular muscles intact Neck: No stridor, no JVD, full neck ROM Lungs: Clear to auscultation, No wheezing or rales. No increased work of breathing, no conversational dyspnea, no accessory muscle use, no nasal flaring. No respiratory distress noted Heart: Regular rate and rhythm, No murmurs, No rubs and No gallops, 2+ distal pulses (radial, femoral, posterior tibial) in all extremities Abdomen: Soft, there is no tenderness, rigidity, rebound or guarding, no obvious peritoneal signs, no palpable pulsatile abdominal masses, no auscultated abdominal bruit : No CVAT Extremities: No edema Neuro: No focal neurological deficits, cranial nerves II through XII intact, 5/5 strength in all extremities. Intact sensation to light touch in all extremities, 2+ reflexes bilateral patella tendons. Normal gait. No ataxia. Skin: No rash or lesions noted MEDICAL DECISION MAKING: Chief Complaint: Fever External records reviewed: Admitted in July 2022 for Pseudomonas UTI Factors affecting care: hypertension, CKD stage IV, history of cervical CA Social determinants of health: none History obtained from others: Patient's family Consults: none ALL IMAGES (IF OBTAINED) HAVE BEEN PERSONALLY REVIEWED AND INTERPRETED BY MYSELF. EKG with sinus tachycardia, normal axis, normal intervals, no STEMI CBC with marked leukocytosis suggestive of systemic inflammation, no anemia or thrombocytopenia noted Lipase is wnl indicating no pancreatic inflammation. BMP with LULY on CKD, no anion gap to suggest endorgan hypoperfusion, no significant electrolyte abnormalities LFTs without evidence of hepatobiliary obstruction COVID is negative [facility] Narrative: Patient was initially febrile, tachycardic, tachypneic otherwise hemodynamically stable and nontoxic-appearing I considered the following differential diagnosis: Bacterial infection, viral infection I obtained a broad lab and imaging work-up to further elucidate the etiology of the patient complaints including blood cultures, urine culture, UA, chest x-ray. I treated the patient with IV fluid bolus, gave Toradol for antipyretic effect. Labs evidence of systemic inflammation, UTI. Vital signs improved after fluids and antipyretics. Given the patient's advanced age history of sepsis and signs of sepsis today as well as UTI and endorgan dysfunction in the form of LULY on CKD she will need admission for IV antibiotics to await cultures. The patient and/or family, caregivers express understanding. The patient and/or family, caregivers agrees with the plan. Shared decision making: I will have a discussion with the patient and or visitors regarding risk/benefits of further testing or admission. They will be made aware of of the risk/benefits inherent in this decision they will be given the opportunity to voice understanding. Total critical care time today provided was at least 0 minutes. This excludes separately billable procedures. Critical care time (if documented) is secondary to the patient having high probability of clinically significant/life threatening deterioration in the patient's condition which required my urgent intervention. Impression: 1. Fever 2. Tachycardia 3. Nausea and vomiting 4. Leukocytosis 5. LULY on CKD 6. UTI Dispo: admit to [facility] Lab Data Attestation: I reviewed the patient's lab results. Labs: Laboratory Results - last 24 hr 08/02/23 13:05 WBC 19.6 H RBC 4.45 Hgb 14.0 Hct 43.5 MCV 97.8 MCH 31.5 MCHC 32.2 RDW Std Deviation 51.8 H RDW Coeff of Dewey 14.3 Plt Count 294 MPV 10.6 Immature Gran % (Auto) 0.700 Neut % (Auto) 74.9 H Lymph % (Auto) 16.0 L [place] % (Auto) 7.9 Eos % (Auto) 0.1 Baso % (Auto) 0.4 Absolute Neuts (auto) 14.7 H Absolute Lymphs (auto) 3.15 Nucleated RBC % 0 Radiography Chest X-Ray - ED: Read by ED Physician Diagnostic Testing: I have personally reviewed the patient's chest x-ray. Chest x-ray is unremarkable for pulmonary edema, pneumothorax, pneumonia or focal cardiopulmonary abnormality. Discharge Plan Triage Chief Complaint: Fever Other Complaint: Nausea/Vomiting Weakness ED Provider: Brian Mckee Dx/Rx/DC Orders Prescriptions: No Action albuterol sulfate [Ventolin HFA] 90 mcg/actuation HFA aerosol inhaler 2 puff INHALATION Q6H PRN (Reason: Sob &/Or Wheezing) pantoprazole 40 mg tablet,delayed release (DR/EC) 40 mg PO DAILY Hold Instructions: Order Completed metoprolol tartrate 50 MG tablet 50 mg PO BID potassium chloride 20 MEQ tablet,ER particles/crystals 20 meq PO DAILY ipratropium bromide 42 mcg (0.06 %) spray,non-aerosol 2 spray INTRANASAL DAILY amlodipine 2.5 mg tablet 2.5 mg PO DAILY Qty: 90 3RF Primary Care Provider: Gerardo García Chi Referrals: Gerardo García Chi, MD [Primary Care Provider] -
--- NOTE | 2023-08-02 12:18 | EKG12_ITS ---
Test Reason : TACHY Blood Pressure : / mmHG Vent. Rate : 117 BPM Atrial Rate : 117 BPM P-R Int : 144 ms QRS Dur : 078 ms QT Int : 320 ms P-R-T Axes : 052 026 059 degrees QTc Int : 446 ms Sinus tachycardia Otherwise normal ECG When compared with ECG of 19-SEP-2021 12:22, Vent. rate has increased BY 58 BPM Confirmed by TARAH CHRISTIAN, DANTE ([id number]), news copy editor GABY GREENE ([id number]) on 08/08/2023 10:12:10 AM Referred By: Confirmed By:DANTE RASCON MD
[2023-08-02] MEDS: Ondansetron 4 MG/2 ML Vial IV (13:04)
[2023-08-02] MEDS: 0.9% Normal Saline (500mL Bag) 500 ML 1000 ML IV (13:04)
[2023-08-02] MEDS: Ketorolac 15 MG/ML Vial IV (13:04)
--- NOTE | 2023-08-02 13:10 | RAD_ITS ---
STUDY: X-RAY CHEST REASON FOR EXAM: Female, 72 years old. Fever TECHNIQUE: Single AP portable view of the chest. COMPARISON: Comparison is made with prior study dated July 29, 2022. FINDINGS: EKG electrodes are seen. Hyperinflation. There is no demonstrated pleural abnormality. Normal size heart. A loop recorder device is seen overlying the left cardiac border. Normal mediastinum and wayne. Normal visualized pulmonary arteries. Normal visualized aortic arch and descending thoracic aorta. There are degenerative changes of the visualized thoracic spine. Normal visualized ribs, clavicles, and shoulders. There is no demonstrated abnormality of the visualized soft tissue structures of the upper abdomen. RAD/Chest 1 View (Portable) IMPRESSION: Hyperinflation. No acute abnormality is seen. Electronically Signed: Ike Colón MD at 13:32 EDT ,
[2023-08-02 13:16] LABS: Absolute Lymphocyte Count 3.15 X10^3/uL (0.83-4.51); Absolute Neutrophil Count 14.7 X10^3/uL (2.0-7.7); Basophil# 0.07 X10^3/uL; Basophil% 0.4 % (0-1); Eosinophil# 0.01 X10^3/uL; Eosinophils% 0.1 % (0-5); Hematocrit 43.5 % (37-47); Lymphocyte # 3.15 X10^3/ul (0.83-4.51); Mean Corp Hgb Conc 32.2 g/dL (32-36); Mean Corpuscular Hgb 31.5 pg (27.0-32.0); Mean Corpuscular Volume 97.8 fL (81-99); Mean Platelet Vol. 10.6 fl (6.2-12.0); Monocyte# 1.55 X10^3/uL; Monocyte% 7.9 % (0-10); NRBC Flagged by Analyzer 0 % (0-5); Neutrophil # 14.72 X10^3/uL (2.7-7.7); Neutrophil % 74.9 % (47-70); POSITIVE DIFFERENTIAL YES; Platelet Count 294 K/mm3 (150-450); RBC Distribution Width CV 14.3 % (11.6-14.6); RBC Distribution Width SD 51.8 fl (35.1-43.9); Red Blood Count 4.45 M/mm3 (4.2-5.4); White Blood Count 19.6 K/mm3 (4.4-11.0)
[2023-08-02 13:18] LABS: Differential Indicated SCAN CRITERIA MET
[2023-08-02 13:34] LABS: ALB/GLOB Ratio 0.5 RATIO (0.9-2.4); AST(SGOT) 10 U/L (15-37); Alanine Aminotransfer ALT/SGPT 11 U/L (13-56); Albumin, Serum 2.6 g/dL (3.2-5.0); Alkaline Phosphatase 113 U/L (45-117); Anion Gap 7 (5-15); BUN 18 mg/dL (7-18); BUN/Creat Ratio 7.3 RATIO (10-20); Chloride 107 mmol/L (98-107); Creatinine, Serum 2.45 mg/dL (0.55-1.02); EST Glomerular Filtration Rate 21 mL/min (>60); Est Glom Filt Rate - Afr Amer 25 mL/min (>60); Estimated Creatinine Clearance 21.55 ml/min; Globulin 5.1 g/dL (2.2-4.2); Glucose 123 mg/dL (74-106); Lipase 26 U/L (13-75); Potassium 3.6 mmol/L (3.5-5.1); Protein, Total 7.7 g/dL (6.4-8.2); Sodium Level 136 mmol/L (136-145)
[2023-08-02 13:47] LABS: Differential Comment SCANNED
[2023-08-02 13:53] LABS: Mucous, Urine 0 SEEN /hpf (<or=2+); Squamous Epithelial Cells - UA 0 SEEN /hpf (5-10)
[2023-08-02 13:57] LABS: Color, Urine Yellow (Yellow); Glucose, Dipstick Normal (Normal); Ketone-Dipstick Negative (Negative); Leukocyte Esterase-Dipstick 500 /ul (Negative); Nitrite-Dipstick Positive (Negative); Occult Blood-Urine 150 /ul (Negative); Protein-Dipstick 100 mg/dl (Negative); Urine Bilirubin Dipstick Negative (Negative); Urine Clarity Cloudy (Clear); Urine Urobilinogen Normal (Normal)
[2023-08-02 14:17] LABS: Bacteria 2+ /hpf (None Seen); Red Blood Cells-Urine 0-5 SEEN /hpf (0-5); White Blood Cells >100 SEEN /hpf (0-5)
[2023-08-02] MEDS: Piperacil/Tazobactam 3.375 GM in 0.9% Normal Saline (50mL MB+) 50 ML IV (14:37)
[2023-08-02] MEDS: Vancomycin HCl 1,250 MG in 0.9% Normal Saline (250mL Bag) 250 ML 167 MG IV (15:21)
--- NOTE | 2023-08-02 15:49 | PCM.HP.STD ---
HPI - General General Date of Admission: 08/02/23 Date of Service: 08/02/23 Chief Complaint: Generalized weakness HPI Narrative TODD HERRERA, is a 72 F with history of cervical cancer, CKD, bilateral hydronephrosis with chronic ureteral stents, hypertension, GERD who presented to [facility] 08/02/2023 with worsening generalized malaise and some nausea with fever at home. In the ED she was noted to have a temperature of 100.7 and a white blood cell count of 19.6 when she was also tachycardic and tachypneic, her UA was suggestive of UTI and she additionally had LULY with a creatinine of 2.45 with a baseline around 1.7-2.0. Hospitalist contacted for admission. Patient evaluated with family members at bedside. She reports she has been feeling worse over the past few months but yesterday was feeling sick to her stomach and had some chills and today had a temperature of 100.6 so came to the hospital. At present feeling slightly better than she had been but still feels generally unwell. Denies any changes in her bowels or bladder, has not had any burning on urination but does not feel she has urinated well today. Does follow with Dr. Strickland and has ureteral stents and reports she previously was on dialysis but for the past year and a half has not required this and has stent exchanges every 4 to 5 months with her most recent in May. Not presently feeling sick to her stomach. Had no other specific complaints at this time. [facility] Medical History (Updated 08/02/23 @ 16:[address] oHlly Echeverria MD) Acute diarrhea LULY (acute kidney injury) Asthma Dunbar's palsy Bilateral hydronephrosis Bladder disease Blood disorder Bruising Cancer Cardiology follow-up encounter Cervical cancer Chronic renal failure, stage 4 (severe) Easy bruising Essential hypertension Former smoker Gout High anion gap metabolic acidosis History of biliary stent insertion History of cervical cancer History of Clostridium difficile infection History of COVID-19 History of irregular heartbeat History of renal disease Hx of cataract Hx of echocardiogram Hx of vertigo Hyperlipidemia Hypertension Hypokalemia Hyponatremia Leg cramps Lymphocytosis Mild intermittent asthma MRSA infection Near syncope Problem with dialysis access Sepsis Status post placement of implantable loop recorder (~03/29/20) Thyroid disease Urinary incontinence UTI (urinary tract infection) Wears dentures Home Medications albuterol sulfate 90 mcg/actuation aerosol inhaler (Ventolin HFA) 2 puff inhalation Q6H PRN Sob &/Or Wheezing 07/25/18 [History Last Taken 08/01/23] metoprolol tartrate 50 mg tablet 50 mg PO BID blood pressure 01/27/19 [History Last Taken 08/01/23] potassium chloride 20 mEq tablet,extended release(part/cryst) 20 meq PO DAILY supplement 09/01/20 [History Last Taken 08/01/23] amlodipine 2.5 mg tablet 2.5 mg PO DAILY BP #90 tabs 08/12/21 [Rx Last Taken 08/01/23] ipratropium bromide 42 mcg (0.06 %) nasal spray 2 spray intranasal DAILY 11/23/21 [History Last Taken 08/01/23] pantoprazole 40 mg tablet,delayed release 40 mg PO DAILY 03/27/23 [History Last Taken 08/01/23] Allergy/AdvReac Type Severity Reaction Status Date / Time pravastatin Allergy Severe Chest Verified 06/08/23 09:50 tightness procaine [From Novocain] Allergy Severe NEEDS Verified 06/08/23 09:50 FOLLOW-UP sulfamethoxazole Allergy Severe Shortness Verified 06/08/23 09:50 [From Bactrim] of breath trimethoprim [From Bactrim] Allergy Severe Shortness Verified 06/08/23 09:50 of breath Oolzzbc-HFM-JfK Reductase Allergy Anaphylaxis Verified 06/08/23 09:50 Inhibitor clindamycin AdvReac Severe unsure of Verified 06/08/23 09:50 reaction methylprednisolone AdvReac Severe Pain in Verified 06/08/23 09:50 joints levofloxacin [From Levaquin] AdvReac UNSURE OF Verified 06/08/23 09:50 REACTION Family History Father , 32 yrs old CAD (coronary artery disease) History of coronary artery bypass surgery Mother Cancer Lung CA, Hx tobacco use. Surgical History History of arteriovenostomy for renal dialysis (~09/2021) History of cardiac catheterization (~01/08/18) History of cardiac catheterization History of cholecystectomy History of excision of mass History of hysterectomy History of loop recorder history of radium implant Hx of cystoscopy S/P arteriovenous (AV) fistula creation Social History household members: spouse and children number of children: 6 current occupational status: retired history of recent travel: No Smoking Status: Former smoker second hand exposure: No alcohol intake: never substance use type: does not use what type of physical activity do you participate in: walking saurabh/yarsanism: Non-Advent/Independent seatbelt use: always do you feel safe at home: Yes additional social history: - Fernando PALOMO Narrative General: Did have fever HENT: Denies headache, denies stuffy nose, denies sore throat EYES: Denies changes in vision Resp: Denies cough, denies shortness of breath Cardiac: Denies chest pain GI: Denies abdominal pain, denies changes in bowel, had some nausea : Denies changes in urination Extremity: Denies swelling MSK: Feels somewhat generally weak and unwell Neuro: Denies any numbness/tingling Heme: Denies any bleeding or bruising Skin: Denies rashes Psychiatric: No complaints voiced Vital Signs Vital Signs Vital Signs: 08/02/23 12:11 08/02/23 12:22 08/02/23 13:12 Temperature 100.7 F H 97.8 F Temperature Source Temporal Temporal Pulse Rate 126 H 96 Respiratory Rate 20 H 23 H Respiratory Effort Normal Non-Labored Respiratory Pattern Normal Blood Pressure 135/82 H 145/79 H Blood Pressure Mean 99 101 Pulse Ox 94 97 Oxygen Delivery Method Room Air Room Air 08/02/23 15:22 Temperature 98 F Temperature Source Temporal Pulse Rate 89 Respiratory Rate 23 H Respiratory Effort Respiratory Pattern Blood Pressure 121/67 H Blood Pressure Mean 85 Pulse Ox 96 Oxygen Delivery Method Room Air Weight Weight: 84.8 kg Body Mass Index (BMI) 28.4 Physical Exam Narrative General: Alert, no acute distress HEENT: Atraumatic, normocephalic Eyes: Anicteric, normal conjunctiva, extraocular movements grossly intact Neck: Supple Respiratory: Clear to auscultation bilaterally, normal respiratory effort Cardiovascular: Regular rate GI: Soft, nontender, nondistended Extremities: No edema Musculoskeletal: Moving all extremities Neuro: No overt focal neurological deficits Skin: No rashes appreciated Psych: Cooperative Results Lab / Micro Data 08/02/23 13:05 08/02/23 13:05 Labs: Laboratory Results - last 24 hr 08/02/23 13:05: WBC 19.6 H, RBC 4.45, Hgb 14.0, Hct 43.5, MCV 97.8, MCH 31.5, MCHC 32.2, RDW Std Deviation 51.8 H, RDW Coeff of Dewey 14.3, Plt Count 294, MPV 10.6, Immature Gran % (Auto) 0.700, Neut % (Auto) 74.9 H, Lymph % (Auto) 16.0 L, [place] % (Auto) 7.9, Eos % (Auto) 0.1, Baso % (Auto) 0.4, Absolute Neuts (auto) 14.7 H, Absolute Lymphs (auto) 3.15, Nucleated RBC % 0, Differential Comment SCANNED, Diff Path Review March, Sodium 136, Potassium 3.6, Chloride 107, Carbon Dioxide 22.0, Anion Gap 7, BUN 18, Creatinine 2.45 H, Estim Creat Clear Calc 21.55, Est GFR (MDRD) Af Amer 25 L, Est GFR (MDRD) Non-Af 21 L, BUN/Creatinine Ratio 7.3 L, Glucose 123 H, Lactic Acid 2.0, Calcium 8.0 L, Total Bilirubin 0.90, AST 10 L, ALT 11 L, Alkaline Phosphatase 113, Total Protein 7.7, Albumin 2.6 L, Globulin 5.1 H, Albumin/Globulin Ratio 0.5 L, Lipase 26 08/02/23 13:50: Urine Color Yellow, Urine Clarity Cloudy, Urine pH 6.0, Ur Specific [place] 1.010, Urine Protein 100 H, Urine Glucose (UA) Normal, Urine Ketones Negative, Urine Occult Blood 150 H, Urine Nitrite Positive H, Urine Bilirubin Negative, Urine Urobilinogen Normal, Ur Leukocyte Esterase 500 H, Urine RBC 0-5 SEEN, Urine WBC >100 SEEN, Ur Squamous Epith Cells 0 SEEN, Urine Bacteria 2+, Urine Mucus 0 SEEN Micro: Microbiology 08/02/23 12:55 Nasal Secretion SARS-CoV-2 Antigen (Rapid) - Final Radiology Impression Chest X-Ray 08/02/23 13:10 IMPRESSION: Hyperinflation. No acute abnormality is seen. Electronically Signed: Ike Colón MD at 13:32 EDT , Assessment & Plan Assessment/Plan (1) LULY (acute kidney injury): (2) Acute kidney injury superimposed on CKD: (3) Essential hypertension: (4) Complicated urinary tract infection: PLAN: Plan #Complicated UTI -UA suggestive of UTI and patient had white blood cell count of 19.6 and fever 100.7 with low-grade tachycardia that improved with treatment -Lactic acid within normal limits -Started on broad-spectrum antibiotics and cultures obtained -We will admit and obtain CT scan of the abdomen especially given her history of stents and hydronephrosis with new LULY -Continue broad-spectrum antibiotics and await cultures -We will continue fluids #LULY on CKD stage IV -Previously on dialysis but has been off of this, follows with Dr. Matthews on outpatient basis -Suspect this is secondary to volume depletion as well as infection -We will obtain CT of the abdomen -Avoid nephrotoxic agents -Will give hydration -Treat underlying urinary tract infection #Hypertension -Given underlying infection holding her antihypertensives at the moment but will resume #DVT ppx: Heparin subcu Holly Echeverria MD Time spent in the patient's overall evaluation,decision-making process, review of diagnostic data, adjustment of management, discussion with other providers, nursing nursing and ancillary staff involved in patient's care documentation, 76 minutes Charges/Coding Visit Charges Inpatient E&M: 69011 Init Hosp L3
--- NOTE | 2023-08-02 16:12 | CT_ITS ---
STUDY: CT ABDOMEN AND PELVIS WITHOUT CONTRAST REASON FOR EXAM: Female, 72 years old. bilat ureteral stents, uti w/ LULY RADIATION DOSAGE (If Supplied By Facility): CTDIvol = ( 10.92 ) mGy, DLP = ( 507.42 ) mGycm TECHNIQUE: Transaxial images were obtained from the dome of the diaphragm to the symphysis pubis without oral contrast, and without intravenous contrast. Sagittal and coronal images were reconstructed. Individualized dose optimization techniques were used for this CT. COMPARISON: April 17, 2019 FINDINGS: The visualized lung bases are unremarkable. The visualized portions of the heart are within normal limits. Normal liver. Gallbladder not visualized status post cholecystectomy. Normal spleen. Normal pancreas. Normal bilateral adrenal glands. There is mild to moderate left renal pelvocaliectasis with indwelling ureteral vesical stent. There is more pronounced obstruction of the right kidney with indwelling ureteral vesical stent in association with swelling of the kidney and stranding in the perinephric fat which may be consistent with coexisting inflammatory disease Normal visualized stomach. Normal small intestine. Normal colon. No evidence for acute appendicitis Atherosclerotic changes of the aorta without evidence for aneurysm. Normal inferior vena cava. Normal retroperitoneum. Concentric thick-walled bladder of uncertain significance although may be consistent with cystitis. Uterus not visualized status post hysterectomy and bilateral lymph node resection Normal abdominal wall. Normal osseous structures. CT/Abdomen/Pelvis without Cont IMPRESSION: Mild to moderate left renal pelvocaliectasis with indwelling vesical stent.. More severe obstruction of the right kidney status post stenting with swelling of the kidney and inflammatory changes in the fat may be consistent with coexisting infection. There is also thickening of the burdick of bladder and coexisting cystitis cannot be excluded. Electronically Signed: Aman rPuitt MD at 17:00 EDT ,
--- NOTE | 2023-08-02 16:36 | PCM.RX.CS ---
Consult Antibiotic Management Pharmacy has been consulted to manage selected antiobiotic: Vancomycin Type of Intervention Type of Consult: New start Suspected Infection Suspected Infection: Other (UTI) Prior Doses of Antibiotics Prior Doses of Antibiotics Received/Current Regimen: Patient received x 1 dose of Vancomycin 1250 mg 08/02/23 @ 1521 Labs Labs: Sodium 136 mmol/L (136-145) 08/02/23 13:05 Potassium 3.6 mmol/L (3.5-5.1) 08/02/23 13:05 Chloride 107 mmol/L (98-107) 08/02/23 13:05 Carbon Dioxide 22.0 mmol/L (21.0-32.0) 08/02/23 13:05 Anion Gap 7 (5-15) 08/02/23 13:05 BUN 18 mg/dL (7-18) 08/02/23 13:05 Creatinine 2.45 mg/dL (0.55-1.02) H 08/02/23 13:05 Est GFR (MDRD) Af Amer 25 mL/min (>60) L 08/02/23 13:05 Est GFR (MDRD) Non-Af 21 mL/min (>60) L 08/02/23 13:05 BUN/Creatinine Ratio 7.3 RATIO (10-20) L 08/02/23 13:05 Glucose 123 mg/dL (74-106) H 08/02/23 13:05 Microbiology Microbiology: Microbiology 08/02/23 12:55 Nasal Secretion SARS-CoV-2 Antigen (Rapid) - Final Dosing Weight Weight used for dosin.8 kg Estimated Creatinine Clearance Estimated Creatinine Clearance: ~22 Goal Trough Goal Trough: 15-20 mcg/mL Pharmacy Plan for Drug Dosing Pharmacy Plan for Drug Dosing: Vancomycin 1250 mg IV x 1, followed by vancomycin 750 mg IV Q24H thereafter with a trough prior to the 3rd dose. Pharmacy Service will continue to monitor and adjust dosing as required. Follow-Up Labs Follow-Up Labs: Trough: Vancomycin Date/Time Labs Ordered Labs to be done on [date and time ordered]: 08/04/23 @ 1434
[2023-08-02] MEDS: Cefepime HCl 2 GM in 0.9% Normal Saline (100mL MB+) 100 ML IV (16:59)
[2023-08-02] MEDS: 0.9% Normal Saline (1000mL) 1,000 ML 100 ML IV (16:59)
[2023-08-02 17:09] LABS: Reflex Lactate? Y
--- NOTE | 2023-08-02 18:46 | PCM.HOSP.N ---
Hospitalist Note Reviewed patient's CT scan and discussed with her urologist Dr. Strickland, will continue current management and place consult for patient to be seen tomorrow.
[2023-08-02 18:52] LABS: Lactic Acid 1.6 mmol/L (0.4-1.9)
[2023-08-02] MEDS: Metoprolol Tartrate 25 MG Tablet PO (22:24)
[2023-08-02] MEDS: Heparin Injection (Vial) 5,000 UNIT/ML VIAL 5000 UNIT SC (22:25)
[2023-08-03] VITALS (8 sets, daily range): BP systolic 102–142; BP diastolic 58–79; PULSE 80–105; RESP 16–18; TEMP 36.8–38.4; O2SAT 95–98
[2023-08-03] MEDS: 0.9% Normal Saline (1000mL) 1,000 ML 100 ML IV (03:41)
--- NOTE | 2023-08-03 07:21 | PN.HOSP_ITS ---
Reason for Visit Reason for Visit: Diagnoses Essential (primary) hypertension (08/02/23) Acute kidney failure, unspecified (08/02/23) Chronic kidney disease, unspecified (08/02/23) Urinary tract infection, site not specified (08/02/23) Subjective Subjective Feels better. Denies complaints. No flank/abdominal pain. Objective Data Objective Data Vital Signs: Vital Signs Temp Pulse Resp BP Pulse Ox O2 Del Method 37.4 C H 98 18 123/58 H 95 Room Air 08/03/23 03:44 08/03/23 03:44 08/03/23 03:44 08/03/23 03:44 08/03/23 03:44 08/03/23 03:44 Oxygen Delivery Method Room Air Weight: 84.3 kg Body Mass Index (BMI) 28.2 Intake & Output: Intake and Output for Last 24 Hours 08/01/23 08/02/23 08/03/23 23:59 23:59 23:59 Intake Total 1114.32 / 1114.32 1200 / 1200 Output Total 400 / 400 Balance 1114.32 / 1114.32 800 / 800 Lab / Micro Data 08/03/23 06:20 08/03/23 06:20 Labs: Laboratory Results - last 24 hr 08/02/23 13:05: WBC 19.6 H, RBC 4.45, Hgb 14.0, Hct 43.5, MCV 97.8, MCH 31.5, MCHC 32.2, RDW Std Deviation 51.8 H, RDW Coeff of Dewey 14.3, Plt Count 294, MPV 10.6, Immature Gran % (Auto) 0.700, Neut % (Auto) 74.9 H, Lymph % (Auto) 16.0 L, [place] % (Auto) 7.9, Eos % (Auto) 0.1, Baso % (Auto) 0.4, Absolute Neuts (auto) 14.7 H, Absolute Lymphs (auto) 3.15, Nucleated RBC % 0, Differential Comment SCANNED, Diff Path Review March, Sodium 136, Potassium 3.6, Chloride 107, Carbon Dioxide 22.0, Anion Gap 7, BUN 18, Creatinine 2.45 H, Estim Creat Clear Calc 21.55, Est GFR (MDRD) Af Amer 25 L, Est GFR (MDRD) Non-Af 21 L, BUN/Creatinine Ratio 7.3 L, Glucose 123 H, Lactic Acid 2.0, Calcium 8.0 L, Total Bilirubin 0.90, AST 10 L, ALT 11 L, Alkaline Phosphatase 113, Total Protein 7.7, Albumin 2.6 L, Globulin 5.1 H, Albumin/Globulin Ratio 0.5 L, Lipase 26 08/02/23 13:50: Urine Color Yellow, Urine Clarity Cloudy, Urine pH 6.0, Ur Specific [place] 1.010, Urine Protein 100 H, Urine Glucose (UA) Normal, Urine Ketones Negative, Urine Occult Blood 150 H, Urine Nitrite Positive H, Urine Bilirubin Negative, Urine Urobilinogen Normal, Ur Leukocyte Esterase 500 H, Urine RBC 0-5 SEEN, Urine WBC >100 SEEN, Ur Squamous Epith Cells 0 SEEN, Urine Bacteria 2+, Urine Mucus 0 SEEN 08/02/23 18:19: Lactic Acid 1.6 Micro: Microbiology 08/02/23 12:55 Nasal Secretion SARS-CoV-2 Antigen (Rapid) - Final Radiography Diagnostic Testing: Radiology Impression Chest X-Ray 08/02/23 13:10 IMPRESSION: Hyperinflation. No acute abnormality is seen. Electronically Signed: Ike Colón MD at 13:32 EDT , Abdomen/Pelvis CT 08/02/23 16:12 IMPRESSION: Mild to moderate left renal pelvocaliectasis with indwelling vesical stent.. More severe obstruction of the right kidney status post stenting with swelling of the kidney and inflammatory changes in the fat may be consistent with coexisting infection. There is also thickening of the burdick of bladder and coexisting cystitis cannot be excluded. Electronically Signed: Aman Pruitt MD at 17:00 EDT , Physical Exam Const alert and no apparent distress HEENT head/scalp atraumatic and moist oral mucous membranes Resp normal respiratory effort, no retractions and no use of accessory muscles Cardio regular rate, regular rhythm, S1 normal heart sound and S2 normal heart sound GI normal to inspection, nondistended, normoactive bowel sounds, soft to palpation and non-distended GI Narrative: right CVA tenderness. Extremity normal to inspection Neuro oriented x3 and CN's II-XII intact bilaterally Assessment & Plan Assessment/Plan (1) Complicated urinary tract infection: PLAN: UTI and pyelonephritis consult Data: * UA w 500 LE, >100 WBCs * Lactic acid within normal limits * UCx pending * BCx pending * CT A/P: mild to moderate left renal pelvocaliectasis w indwelling vesicla stent. More severe obstruction of the right kidney s/p stent w swelling of the kidney and inflammatory changes in joi fat. Abx: * Cefepime and vancomycin. Deescalate as cx result return. (2) LULY (acute kidney injury): PLAN: Unclear etiology at this time Admission creatinine 2.45, baseline around 1.7 (CW CKD IIIb) On IVF Monitor PLAN: Plan Chronic conditions: * HTN: stable. resume metoprolol and amlodipine w hold parameters VTE proph: SQ heparin Charges/Coding Visit Charges Inpatient E&M: 16463 Subs Hosp L2
[2023-08-03 07:28] LABS: Absolute Lymphocyte Count 2.83 X10^3/uL (0.83-4.51); Absolute Neutrophil Count 11.7 X10^3/uL (2.0-7.7); Basophil# 0.05 X10^3/uL; Basophil% 0.3 % (0-1); Hematocrit 37.8 % (37-47); Hemoglobin 11.9 g/dL (12.0-15.0); Lymphocyte # 2.83 X10^3/ul (0.83-4.51); Lymphocyte % 17.9 % (19-41); Mean Corp Hgb Conc 31.5 g/dL (32-36); Mean Corpuscular Hgb 31.9 pg (27.0-32.0); Mean Corpuscular Volume 101.3 fL (81-99); Mean Platelet Vol. 11.2 fl (6.2-12.0); Monocyte# 1.22 X10^3/uL; Monocyte% 7.7 % (0-10); NRBC Flagged by Analyzer 0 % (0-5); Neutrophil # 11.66 X10^3/uL (2.7-7.7); Neutrophil % 73.5 % (47-70); Platelet Count 198 K/mm3 (150-450); RBC Distribution Width CV 14.6 % (11.6-14.6); RBC Distribution Width SD 54.3 fl (35.1-43.9); Red Blood Count 3.73 M/mm3 (4.2-5.4); White Blood Count 15.9 K/mm3 (4.4-11.0)
[2023-08-03 08:05] LABS: ALB/GLOB Ratio 0.5 RATIO (0.9-2.4); AST(SGOT) 13 U/L (15-37); Alanine Aminotransfer ALT/SGPT 10 U/L (13-56); Albumin, Serum 2.1 g/dL (3.2-5.0); Alkaline Phosphatase 90 U/L (45-117); Anion Gap 8 (5-15); BUN 19 mg/dL (7-18); BUN/Creat Ratio 7.8 RATIO (10-20); Chloride 110 mmol/L (98-107); Creatinine, Serum 2.44 mg/dL (0.55-1.02); EST Glomerular Filtration Rate 21 mL/min (>60); Est Glom Filt Rate - Afr Amer 25 mL/min (>60); Estimated Creatinine Clearance 21.64 ml/min; Globulin 4.3 g/dL (2.2-4.2); Glucose 81 mg/dL (74-106); Potassium 3.8 mmol/L (3.5-5.1); Protein, Total 6.4 g/dL (6.4-8.2); Sodium Level 137 mmol/L (136-145)
[2023-08-03] MEDS: Acetaminophen 325 MG Tablet 650 MG PO ×2 (08:29→18:03)
[2023-08-03] MEDS: Pantoprazole Sodium 40 MG Tablet PO (10:16)
[2023-08-03] MEDS: Metoprolol Tartrate 25 MG Tablet PO ×2 (10:16→22:21)
[2023-08-03] MEDS: Heparin Injection (Vial) 5,000 UNIT/ML VIAL 5000 UNIT SC ×2 (10:17→22:19)
--- NOTE | 2023-08-03 10:20 | CASEMGMT ---
RN CM dog breeder CM Face to Face with patient for initial transition planning/care coordination assessment. RN CM introduced self and role at [facility]. Patient?lying in bed, alert and oriented. Patient willing to participate in assessment and is able to answer all questions appropriately.? Care providers, pharmacy, and demographics verified. Patient wishes to discharge home, denies need for home health at this time.? Patient states she has no further needs or concerns at this time. CM to follow for discharge planning needs that may arise. PCP:Ricky Specialists:?Byron (Heating Unit Installer), Em (Urologist), Stephen (Oncologist), and [facility] (Security Project Manager - patient unsure who she sees) [facility]erred Pharmacy: [facility] [place] Insurance:[employer] Prescription Benefit:?Yes Living Will/HPOA:No/No - Patient informed that she can work with SW during her stay (if time allows) to establish these, or make an appointment with the hospital post discharge to establish them. LNOK:Daughters Maxine Delong and Angela Living Arrangements:Patient lives in a two story home with her daughter Angela, and two grandchildren. Three steps w/raling to enter and 15 steps w/railing to second floor. Patient states she ambulates these stairs with no difficulty and is independent in all ADLs and IADLs (Patient states her daughter does most of the cooking and grocery shopping, but she could do these on her own if needed). Transportation: Daughters DME:?Shower chair and grab bars in bathroom. Patient declines to receive information on medical alert systems. Patient denies need for additional DME upon discharge. HHC:Denies previous SNF and HHC. Disposition Plan: Patient to discharge home with family support and follow-up plans in place. Sabrina LIMA, RN, CM
[2023-08-03] MEDS: Ipratropium Bromide 0.06% NASAL SPRAY 2 SPRAY NASAL (10:22)
[2023-08-03] MEDS: amLODIPine 2.5 MG Tablet PO (10:22)
[2023-08-03] MEDS: Vancomycin HCl 750 MG in 0.9% Normal Saline (250mL Bag) 250 ML 250 MG IV (15:30)
[2023-08-03] MEDS: Cefepime HCl 2 GM in 0.9% Normal Saline (100mL MB+) 100 ML IV (16:25)
--- NOTE | 2023-08-03 17:03 | CON.PCM.UR_ITS ---
Assessment & Plan Assessment/Plan (1) Complicated urinary tract infection: PLAN: Continue with antibiotics lets see what the cultures grow up and then what to tailor the antibiotics per the culture results. Once she has enough coverage in place I think it may plan for stent change while she is here in the hospital and await to the cultures are done and sensitivities are done and make sure she is on proper antibiotics be nice to switch her stents out while she is on proper antibiotics. She does demonstrate some mild bilateral hydronephrosis surrounding the stents are working the best on the place and newer and larger stents when this happens. We will follow with you (2) Acute kidney injury superimposed on CKD: HPI Consult Data Date of Consult: 08/03/23 HPI Narrative Reason for Consultation: Urinary tract infection bilateral stents chronic HPI Narrative: TODD HERRERA, is a 72 F who presents to the hospital with a urinary tract infection cultures are pending we will see what the culture results show and the sensitivities show CT scan was done to does demonstrate stents bilaterally in place but she does have some mild bilateral hydronephrosis her creatinine is about 2.44 still low but higher than her baseline. She otherwise just was having some subjective fevers that made her come to the hospital. [facility] Medical History Acute diarrhea LULY (acute kidney injury) Asthma Dunbar's palsy Bilateral hydronephrosis Bladder disease Blood disorder Bruising Cancer Cardiology follow-up encounter Cervical cancer Chronic renal failure, stage 4 (severe) Easy bruising Essential hypertension Former smoker Gout High anion gap metabolic acidosis History of biliary stent insertion History of cervical cancer History of Clostridium difficile infection History of COVID-19 History of irregular heartbeat History of renal disease Hx of cataract Hx of echocardiogram Hx of vertigo Hyperlipidemia Hypertension Hypokalemia Hyponatremia Leg cramps Lymphocytosis Mild intermittent asthma MRSA infection Near syncope Problem with dialysis access Sepsis Status post placement of implantable loop recorder (~03/29/20) Thyroid disease Urinary incontinence UTI (urinary tract infection) Wears dentures Home Medications albuterol sulfate 90 mcg/actuation aerosol inhaler (Ventolin HFA) 2 puff inhalation Q6H PRN Sob &/Or Wheezing 07/25/18 [History Last Taken 08/01/23] metoprolol tartrate 50 mg tablet 50 mg PO BID blood pressure 01/27/19 [History Last Taken 08/01/23] potassium chloride 20 mEq tablet,extended release(part/cryst) 20 meq PO DAILY supplement 09/01/20 [History Last Taken 08/01/23] amlodipine 2.5 mg tablet 2.5 mg PO DAILY BP #90 tabs 08/12/21 [Rx Last Taken 08/01/23] ipratropium bromide 42 mcg (0.06 %) nasal spray 2 spray intranasal DAILY 11/23/21 [History Last Taken 08/01/23] pantoprazole 40 mg tablet,delayed release 40 mg PO DAILY 03/27/23 [History Last Taken 08/01/23] Allergy/AdvReac Type Severity Reaction Status Date / Time pravastatin Allergy Severe Chest Verified 06/08/23 09:50 tightness procaine [From Novocain] Allergy Severe NEEDS Verified 06/08/23 09:50 FOLLOW-UP sulfamethoxazole Allergy Severe Shortness Verified 06/08/23 09:50 [From Bactrim] of breath trimethoprim [From Bactrim] Allergy Severe Shortness Verified 06/08/23 09:50 of breath Warbibe-CLO-DpV Reductase Allergy Anaphylaxis Verified 06/08/23 09:50 Inhibitor clindamycin AdvReac Severe unsure of Verified 06/08/23 09:50 reaction methylprednisolone AdvReac Severe Pain in Verified 06/08/23 09:50 joints levofloxacin [From Levaquin] AdvReac UNSURE OF Verified 06/08/23 09:50 REACTION Family History Father , 32 yrs old CAD (coronary artery disease) History of coronary artery bypass surgery Mother Cancer Lung CA, Hx tobacco use. Surgical History History of arteriovenostomy for renal dialysis (~09/2021) History of cardiac catheterization (~01/08/18) History of cardiac catheterization History of cholecystectomy History of excision of mass History of hysterectomy History of loop recorder history of radium implant Hx of cystoscopy S/P arteriovenous (AV) fistula creation Social History household members: spouse and children number of children: 6 current occupational status: retired history of recent travel: No Smoking Status: Former smoker second hand exposure: No alcohol intake: never substance use type: does not use what type of physical activity do you participate in: walking saurabh/amish: Non-Mu-Ism/Independent seatbelt use: always do you feel safe at home: Yes additional social history: - Fernando PALOMO Constitutional Constitutional: Denies chills, fever(s) or malaise Eyes Eyes: Denies blurry vision or change in vision ENT HEENT: Reports none Cardiovascular Cardiovascular: Denies chest pain or palpitations Respiratory/Chest Respiratory/Chest: Denies cough or shortness of breath with exertion Gastrointestinal Gastrointestinal: Denies abdominal pain, constipation or diarrhea Musculoskeletal Musculoskeletal: Denies back pain, joint stiffness or joint swelling Integumentary Integumentary: Denies dry skin, jaundice, lesions or rash Neurologic Neurologic: Denies confusion, syncope or weakness Psychiatric Psychiatric: Reports none; Denies anxiety or depression Endocrine Endocrinology: Denies excessive sweating, fatigue or flushing Hematologic/Lymphatic Hematologic/Lymphatic: Denies anemia, easy bleeding or easy bruising Physical Exam Const alert and oriented x3 General Appearance: cooperative HEENT normocephalic, head/scalp atraumatic, EAC's normal and TM's normal bilaterally Eyes PERRL and EOMs intact bilaterally Pupil: sluggish Neck no lymphadenopathy, supple and no JVD General: trachea midline Lymph Lymphatic: no lymphadenopathy noted, lymphedema and lymphadenopathy Resp normal respiratory effort, normal air movement and clear to auscultation bilaterally Cardio regular rate, regular rhythm and peripheral pulses 2+ throughout GI soft to palpation, non-tender and non-distended Extremity normal capillary refill and no clubbing, cyanosis or edema General Extremity: no tenderness to palpation of joints or extremities Skin no rashes or lesions noted General Skin Exam: turgor normal Lesions: no lesions Rashes: no rashes Neuro CN's II-XII intact bilaterally Speech: speech normal Motor Exam: strength 5/5 throughout; Negative for general weakness Psych thought process normal, cooperative and affect normal Appearance: appropriate Medical Records Data Attestation: I reviewed the patient's medical records Lab / Micro Data 08/03/23 06:20 08/03/23 06:20 Labs: Laboratory Results - last 24 hr 08/02/23 18:19: Lactic Acid 1.6 08/03/23 06:20: WBC 15.9 H, RBC 3.73 L, Hgb 11.9 L, Hct 37.8, MCV 101.3 H, MCH 31.9, MCHC 31.5 L, RDW Std Deviation 54.3 H, RDW Coeff of [place] 14.6, Plt Count 198, MPV 11.2, Immature Gran % (Auto) 0.600, Neut % (Auto) 73.5 H, Lymph % ( Auto) 17.9 L, [place] % (Auto) 7.7, Eos % (Auto) 0.0, Baso % (Auto) 0.3, Absolute Neuts (auto) 11.7 H, Absolute Lymphs (auto) 2.83, Nucleated RBC % 0, Sodium 137, Potassium 3.8, Chloride 110 H, Carbon Dioxide 19.0 L, Anion Gap 8, BUN 19 H, Creatinine 2.44 H, Estim Creat Clear Calc 21.64, Est GFR (MDRD) Af Amer 25 L, Est GFR (MDRD) Non-Af 21 L, BUN/Creatinine Ratio 7.8 L, Glucose 81, Calcium 7.0 L, Total Bilirubin 1.00, AST 13 L, ALT 10 L, Alkaline Phosphatase 90, Total Protein 6.4, Albumin 2.1 L, Globulin 4.3 H, Albumin/Globulin Ratio 0.5 L Micro: Microbiology 08/02/23 13:50 Urine Catheter - Catheter Urine Culture - Preliminary GNR Poss Pseudomonas sp 08/02/23 12:55 Nasal Secretion SARS-CoV-2 Antigen (Rapid) - Final
[2023-08-04] VITALS (7 sets, daily range): BP systolic 109–138; BP diastolic 58–68; PULSE 85–94; RESP 16–18; TEMP 36.6–37.7; O2SAT 96–100
[2023-08-04] MEDS: Acetaminophen 325 MG Tablet 650 MG PO (04:14)
[2023-08-04 06:54] LABS: Absolute Neutrophil Count 8.2 X10^3/uL (2.0-7.7); Basophil# 0.05 X10^3/uL; Basophil% 0.4 % (0-1); Eosinophil# 0.07 X10^3/uL; Eosinophils% 0.6 % (0-5); Hematocrit 35.6 % (37-47); Hemoglobin 11.5 g/dL (12.0-15.0); Mean Corp Hgb Conc 32.3 g/dL (32-36); Mean Corpuscular Hgb 32.1 pg (27.0-32.0); Mean Corpuscular Volume 99.4 fL (81-99); Mean Platelet Vol. 11.1 fl (6.2-12.0); Monocyte# 1.03 X10^3/uL; Monocyte% 8.1 % (0-10); NRBC Flagged by Analyzer 0 % (0-5); Neutrophil # 8.17 X10^3/uL (2.7-7.7); Neutrophil % 64.3 % (47-70); Platelet Count 214 K/mm3 (150-450); RBC Distribution Width CV 14.4 % (11.6-14.6); Red Blood Count 3.58 M/mm3 (4.2-5.4); White Blood Count 12.7 K/mm3 (4.4-11.0)
[2023-08-04 07:19] LABS: Anion Gap 9 (5-15); BUN 19 mg/dL (7-18); BUN/Creat Ratio 8.1 RATIO (10-20); Calcium,Total 7.3 mg/dL (8.5-10.1); Chloride 113 mmol/L (98-107); Creatinine, Serum 2.36 mg/dL (0.55-1.02); EST Glomerular Filtration Rate 22 mL/min (>60); Est Glom Filt Rate - Afr Amer 26 mL/min (>60); Estimated Creatinine Clearance 22.38 ml/min; Glucose 87 mg/dL (74-106); Potassium 3.4 mmol/L (3.5-5.1); Sodium Level 139 mmol/L (136-145)
--- NOTE | 2023-08-04 07:19 | PN.HOSP_ITS ---
Reason for Visit Reason for Visit: Diagnoses Essential (primary) hypertension (08/02/23) Acute kidney failure, unspecified (08/02/23) Chronic kidney disease, unspecified (08/02/23) Urinary tract infection, site not specified (08/02/23) Subjective Subjective Feels better. Wants to go home Objective Data Objective Data Vital Signs: Vital Signs Temp Pulse Resp BP Pulse Ox O2 Del Method 36.9 C 93 18 136/64 H 96 Room Air 08/04/23 05:45 08/04/23 04:09 08/04/23 04:09 08/04/23 04:08/04/23 04:08/04/23 04:10 Oxygen Delivery Method Room Air Weight: 84.3 kg Body Mass Index (BMI) 28.2 Intake & Output: Intake and Output for Last 24 Hours 08/02/23 08/03/23 08/04/23 23:59 23:59 23:59 Intake Total 1114.32 / 1114.32 2865 / 2865 350 / 350 Output Total 400 / 400 Balance 1114.32 / 1114.32 2465 / 2465 350 / 350 Lab / Micro Data 08/04/23 06:10 08/04/23 06:10 Labs: Laboratory Results - last 24 hr 08/03/23 06:20: WBC 15.9 H, RBC 3.73 L, Hgb 11.9 L, Hct 37.8, MCV 101.3 H, MCH 3 1.9, MCHC 31.5 L, RDW Std Deviation 54.3 H, RDW Coeff of [place]wey 14.6, Plt Count 198, MPV 11.2, Immature Gran % (Auto) 0.600, Neut % (Auto) 73.5 H, Lymph % (Auto) 17.9 L, [place] % (Auto) 7.7, Eos % (Auto) 0.0, Baso % (Auto) 0.3, Absolute Neuts (auto) 11.7 H, Absolute Lymphs (auto) 2.83, Nucleated RBC % 0, Sodium 137, Potassium 3.8, Chloride 110 H, Carbon Dioxide 19.0 L, Anion Gap 8, BUN 19 H, Creatinine 2.44 H, Estim Creat Clear Calc 21.64, Est GFR (MDRD) Af Amer 25 L, Est GFR (MDRD) Non-Af 21 L, BUN/Creatinine Ratio 7.8 L, Glucose 81, Calcium 7.0 L, Total Bilirubin 1.00, AST 13 L, ALT 10 L, Alkaline Phosphatase 90, Total Protein 6.4, Albumin 2.1 L, Globulin 4.3 H, Albumin/Globulin Ratio 0.5 L 08/04/23 06:10: WBC 12.7 H, RBC 3.58 L, Hgb 11.5 L, Hct 35.6 L, MCV 99.4 H, MCH 32.1 H, MCHC 32.3, RDW Std Deviation 53.0 H, RDW Coeff of [place] 14.4, Plt Count 214, MPV 11.1, Immature Gran % (Auto) 0.600, Neut % (Auto) 64.3, Lymph % (Auto) 26.0, [place] % (Auto) 8.1, Eos % (Auto) 0.6, Baso % (Auto) 0.4, Absolute Neuts (auto) 8.2 H, Absolute Lymphs (auto) 3.30, Nucleated RBC % 0, Sodium 139, Potassium 3.4 L, Chloride 113 H, Carbon Dioxide 17.0 L, Anion Gap 9, BUN 19 H, Creatinine 2.36 H, Estim Creat Clear Calc 22.38, Est GFR (MDRD) Af Amer 26 L, Est GFR (MDRD) Non-Af 22 L, BUN/Creatinine Ratio 8.1 L, Glucose 87, Calcium 7.3 L Micro: Microbiology 08/02/23 13:50 Urine Catheter - Catheter Urine Culture - Preliminary GNR Poss Pseudomonas sp 08/02/23 12:55 Nasal Secretion SARS-CoV-2 Antigen (Rapid) - Final Physical Exam Const alert and no apparent distress HEENT head/scalp atraumatic Resp normal respiratory effort, no retractions, no use of accessory muscles and clear to auscultation bilaterally Cardio regular rate, regular rhythm, S1 normal heart sound and S2 normal heart sound GI normal to inspection, nondistended, normoactive bowel sounds, soft to palpation, non-tender and non-distended Extremity normal to inspection Assessment & Plan Assessment/Plan (1) Complicated urinary tract infection: PLAN: UTI and pyelonephritis consult Data: * UA w 500 LE, >100 WBCs * Lactic acid within normal limits * UCx showing GNR, possible pseudomonas * BCx pending * CT A/P: mild to moderate left renal pelvocaliectasis w indwelling vesicla stent. More severe obstruction of the right kidney s/p stent w swelling of the kidney and inflammatory changes in joi fat. Abx: * Cefepime (2) LULY (acute kidney injury): PLAN: Unclear etiology at this time Admission creatinine 2.45, baseline around 1.7 (CW CKD IIIb) On IVF Monitor (3) Hydronephrosis: QUALIFIERS: Hydronephrosis type: other Qualified Code(s): N13.39 - Other hydronephrosis PLAN: on board. Tentative plan for stent change while in the hospital. PLAN: Plan Chronic conditions: * HTN: stable. resume metoprolol and amlodipine w hold parameters VTE proph: SQ heparin Disposition: To be determined. Patient would prefer to follow-up with urology as outpatient for the stent removal. Told her I would want to follow-up on the final culture results to know if she can be discharged today with an oral option for her pyelonephritis. Charges/Coding Visit Charges Inpatient E&M: 48341 Subs Hosp L2
[2023-08-04] MEDS: Potassium Chloride Oral Tablet 20 MEQ 40 MEQ PO (07:43)
[2023-08-04] MEDS: Metoprolol Tartrate 25 MG Tablet PO ×2 (08:49→21:21)
[2023-08-04] MEDS: Pantoprazole Sodium 40 MG Tablet PO (08:49)
[2023-08-04] MEDS: Heparin Injection (Vial) 5,000 UNIT/ML VIAL 5000 UNIT SC ×2 (08:50→21:22)
[2023-08-04] MEDS: Ipratropium Bromide 0.06% NASAL SPRAY 2 SPRAY NASAL (08:50)
--- NOTE | 2023-08-04 09:17 | PCM.CONS.B ---
Consult Date of Consult: 08/04/23 Reason for Consult 72-year-old female with history of cancer in the past and radiation of the pelvis is developed bilateral ureteral strictures and managed with chronic stents. She presented to the hospital with a urinary tract infection she has Pseudomonas infection very likely this is can be a resistant infection. We will have to see what the sensitivity shows high likelihood that what ever she is getting now probably will not be the right antibiotic we will have to switch it to something. I will probably plan to change her stents on Mondays and put her on her cystoscopy and stent change by Sunday hopefully by then she will be on appropriate antibiotics. Assessment & Plan Assessment/Plan (1) Hydronephrosis: QUALIFIERS: Hydronephrosis type: other Qualified Code(s): N13.39 - Other hydronephrosis PLAN: Plan for cystoscopy and bilateral stent change got on the schedule for Sunday morning. (2) Complicated urinary tract infection:
[2023-08-04] MEDS: Cefepime HCl 2 GM in 0.9% Normal Saline (100mL MB+) 100 ML IV (16:50)
[2023-08-05] VITALS (7 sets, daily range): BP systolic 102–138; BP diastolic 47–71; PULSE 88–96; RESP 16–18; TEMP 36.5–36.8; O2SAT 98–100
[2023-08-05 07:16] LABS: Absolute Lymphocyte Count 3.37 X10^3/uL (0.83-4.51); Absolute Neutrophil Count 5.3 X10^3/uL (2.0-7.7); Basophil# 0.04 X10^3/uL; Basophil% 0.4 % (0-1); Eosinophil# 0.14 X10^3/uL; Eosinophils% 1.5 % (0-5); Hematocrit 34.3 % (37-47); Lymphocyte # 3.37 X10^3/ul (0.83-4.51); Lymphocyte % 35.3 % (19-41); Mean Corp Hgb Conc 32.1 g/dL (32-36); Mean Corpuscular Hgb 31.9 pg (27.0-32.0); Mean Corpuscular Volume 99.4 fL (81-99); Mean Platelet Vol. 10.5 fl (6.2-12.0); Monocyte# 0.67 X10^3/uL; NRBC Flagged by Analyzer 0 % (0-5); Neutrophil # 5.29 X10^3/uL (2.7-7.7); Neutrophil % 55.3 % (47-70); Platelet Count 238 K/mm3 (150-450); RBC Distribution Width CV 14.6 % (11.6-14.6); RBC Distribution Width SD 53.1 fl (35.1-43.9); Red Blood Count 3.45 M/mm3 (4.2-5.4); White Blood Count 9.6 K/mm3 (4.4-11.0)
--- NOTE | 2023-08-05 07:17 | PN.HOSP_ITS ---
Reason for Visit Reason for Visit: Diagnoses Essential (primary) hypertension (08/02/23) Other hydronephrosis (08/02/23) Acute kidney failure, unspecified (08/02/23) Chronic kidney disease, unspecified (08/02/23) Urinary tract infection, site not specified (08/02/23) Subjective Subjective Feels better. No new issues. Objective Data Objective Data Vital Signs: Vital Signs Temp Pulse Resp BP Pulse Ox O2 Del Method 36.5 C L 91 16 122/69 H 98 Room Air 08/05/23 03:08 08/05/23 03:08 08/05/23 03:08 08/05/23 03:08 08/05/23 03:08 08/05/23 03:08 Oxygen Delivery Method Room Air Weight: 84.3 kg Body Mass Index (BMI) 28.2 Intake & Output: Intake and Output for Last 24 Hours 08/03/23 08/04/23 08/05/23 23:59 23:59 23:59 Intake Total 2865 / 2865 850 / 850 100 / 100 Output Total 400 / 400 Balance 2465 / 2465 850 / 850 100 / 100 Lab / Micro Data 08/05/23 05:48 08/05/23 05:48 Labs: Laboratory Results - last 24 hr 08/04/23 06:10: Sodium 139, Potassium 3.4 L, Chloride 113 H, Carbon Dioxide 17.0 L, Anion Gap 9, BUN 19 H, Creatinine 2.36 H, Estim Creat Clear Calc 22.38, Est GFR (MDRD) Af Amer 26 L, Est GFR (MDRD) Non-Af 22 L, BUN/Creatinine Ratio 8.1 L, Glucose 87, Calcium 7.3 L 08/05/23 05:48: WBC 9.6, RBC 3.45 L, Hgb 11.0 L, Hct 34.3 L, MCV 99.4 H, MCH 31.9, MCHC 32.1, RDW Std Deviation 53.1 H, RDW Coeff of [place]wey 14.6, Plt Count 238, MPV 10.5, Immature Gran % (Auto) 0.500, Neut % (Auto) 55.3, Lymph % (Auto) 35.3, [place] % (Auto) 7.0, Eos % (Auto) 1.5, Baso % (Auto) 0.4, Absolute Neuts (auto) 5.3, Absolute Lymphs (auto) 3.37, Nucleated RBC % 0 Micro: Microbiology 08/02/23 14:10 Blood Culture (Wb) - Right Forearm Blood Culture - Preliminary No growth in 48 hours. 08/02/23 14:10 Blood Culture (Wb) - Anticubital Right Blood Culture - Preliminary No growth in 48 hours. 08/02/23 13:50 Urine Catheter - Catheter Urine Culture - Preliminary Pseudomonas aeruginosa 08/02/23 12:55 Nasal Secretion SARS-CoV-2 Antigen (Rapid) - Final Physical Exam Const alert and no apparent distress HEENT head/scalp atraumatic Neuro no focal motor deficits Sensorium / Orientation: awake Psych affect normal Assessment & Plan Assessment/Plan (1) Complicated urinary tract infection: PLAN: UTI and pyelonephritis. Cannot rule out nidus of infection from stent. consult Data: * UA w 500 LE, >100 WBCs * Lactic acid within normal limits * UCx showing pseudomonas sensitive to aztreonam, amikacin, gent, imipenem, meropenem, pip/tazo and torbamycin * BCx pending * CT A/P: mild to moderate left renal pelvocaliectasis w indwelling vesicla stent. More severe obstruction of the right kidney s/p stent w swelling of the kidney and inflammatory changes in joi fat. Abx: * Cefepime since admission. Clinically better, but was not on the sensitivity panel. Will change to pip/tazo. Since no oral options available, will consult ID. (2) LULY (acute kidney injury): PLAN: Unclear etiology at this time Admission creatinine 2.45, baseline around 1.7 (CW CKD IIIb) On IVF Monitor (3) Hydronephrosis: QUALIFIERS: Hydronephrosis type: other Qualified Code(s): N13.39 - Other hydronephrosis PLAN: on board. Tentative plan for stent change while in the hospital. PLAN: Plan Chronic conditions: * HTN: stable. resume metoprolol and amlodipine w hold parameters VTE proph: SQ heparin Disposition: TBD Charges/Coding Visit Charges Inpatient E&M: 97757 Subs Hosp L2
[2023-08-05 07:40] LABS: Anion Gap 7 (5-15); BUN 22 mg/dL (7-18); BUN/Creat Ratio 9.9 RATIO (10-20); Chloride 114 mmol/L (98-107); Creatinine, Serum 2.22 mg/dL (0.55-1.02); EST Glomerular Filtration Rate 23 mL/min (>60); Est Glom Filt Rate - Afr Amer 28 mL/min (>60); Estimated Creatinine Clearance 23.79 ml/min; Glucose 79 mg/dL (74-106); Potassium 3.9 mmol/L (3.5-5.1); Sodium Level 140 mmol/L (136-145)
[2023-08-05] MEDS: Ipratropium Bromide 0.06% NASAL SPRAY 2 SPRAY NASAL (10:09)
[2023-08-05] MEDS: Heparin Injection (Vial) 5,000 UNIT/ML VIAL 5000 UNIT SC (10:10)
[2023-08-05] MEDS: Pantoprazole Sodium 40 MG Tablet PO (10:11)
--- NOTE | 2023-08-05 11:49 | PCM.CONS.B ---
Consult Date of Consult: 08/05/23 Reason for Consult 72-year-old female presents the hospital with urinary tract infection with Pseudomonas she is on appropriate antibiotics to cover the Pseudomonas. I have her on the schedule for tomorrow for cystoscopy and bilateral stent changes and can upsize the stents from 6 [place] 7 [place] to help drain both kidneys she still has some bilateral hydronephrosis. Patient was wishing to go home and had a stent as an outpatient but I recommended we just keep her here in the hospital continue antibiotics changes stents tomorrow and then after I think the stents are changed she can go home with appropriate course of antibiotics.
[2023-08-05] MEDS: Metoprolol Tartrate 25 MG Tablet PO ×2 (12:44→22:08)
[2023-08-05] MEDS: amLODIPine 2.5 MG Tablet PO (12:46)
--- NOTE | 2023-08-05 14:51 | NURSING ---
pt feels constipated, nursing assistants teacher offered senna po, but pt requested to wait till tonight to see if she have a BM
[2023-08-05] MEDS: Piperacil/Tazobactam 3.375 GM in 0.9% Normal Saline (50mL MB+) 50 ML IV ×2 (15:31→22:09)
[2023-08-05] MEDS: 0.9% Saline Lock 10 ML Syringe IV (15:31)
[2023-08-06] VITALS (12 sets, daily range): BP systolic 107–138; BP diastolic 59–76; PULSE 79–93; RESP 16–18; TEMP 36.4–36.7; O2SAT 95–100; BMI 28.2
[2023-08-06] MEDS: Piperacil/Tazobactam 3.375 GM in 0.9% Normal Saline (50mL MB+) 50 ML IV ×3 (05:32→21:55)
[2023-08-06 05:44] LABS: Anion Gap 7 (5-15); BUN 21 mg/dL (7-18); BUN/Creat Ratio 9.8 RATIO (10-20); Calcium,Total 7.8 mg/dL (8.5-10.1); Chloride 115 mmol/L (98-107); Creatinine, Serum 2.15 mg/dL (0.55-1.02); EST Glomerular Filtration Rate 24 mL/min (>60); Est Glom Filt Rate - Afr Amer 29 mL/min (>60); Estimated Creatinine Clearance 24.56 ml/min; Glucose 89 mg/dL (74-106); Potassium 3.4 mmol/L (3.5-5.1); Sodium Level 143 mmol/L (136-145)
[2023-08-06] MEDS: Metoprolol Tartrate 25 MG Tablet PO ×2 (09:09→21:50)
[2023-08-06] MEDS: amLODIPine 2.5 MG Tablet PO (09:10)
[2023-08-06 09:58] LABS: Pathologist Review Reviewed
--- NOTE | 2023-08-06 10:50 | NURSING ---
Pt off the floor at this time. Brought down to surgery via bed.
--- NOTE | 2023-08-06 12:13 | OP.PCM_ITS ---
Report of Operation Date of Procedure: 08/06/23 Pre-Operative Diagnosis: Bilateral hydronephrosis Post-Operative Diagnosis: Bilateral hydronephrosis with stents recent infection Surgery/Procedure Performed:: Cystoscopy and right retrograde pyelogram and right stent placement and left retrograde pyelogram left stent placement Description of Surgical Findings:: Patient was taken back to the operating room after induction of general anesthes ia, the patient was placed in dorsolithotomy position. The urethra and genitals were prepped and draped in usual sterile fashion. Using a 21 Nicaraguan rigid cystourethroscope the entire length of the urethra was normal then went into the bladder. Identified the trigone the left and right ureteral orifice. I then cannulated the Left ureteral orifice and advanced a wire up into the kidney. I then backloaded a 5 Nicaraguan open ended catheter over the wire and injected contrast to delineate the anatomy. After the retrograde was performed I then used fluoroscopic images and guidance to advanced a wire up into the kidney and over the 0.038 glidewire I advanced a 6 [place]araguan by 26 cm double pigtail stent. I then pulled the 0.038 Glidewire off and the stent coiled in the kidney bladder good position. The bladder was then drained. We confirmed the position of the stent by fluoroscopy. I then cannulated the right ureteral orifice and advanced a wire up into the kidney. I then backloaded a 5 Nicaraguan open ended catheter over the wire and injected contrast to delineate the anatomy. After the retrograde was performed I then used fluoroscopic images and guidance to advanced a wire up into the kidney and over the 0.038 glidewire I advanced a 6 [place]ar[place]uan by 26 cm double pigtail stent. I then pulled the 0.038 Glidewire off and the stent coiled in the kidney bladder good position. The bladder was then drained. We confirmed the position of the stent by fluoroscopy Patient anesthetic was reversed and was taken back to the PACU in good condition. Surgeon: Joshua Strickland Type of Anesthesia: General Drains: 7fr x 26cm bilateral Admit VTE Documentation VTE Present on Admission: No VTE Mechan Device Prophylaxis: SCD's VTE Pharm Prophylaxis ordered?: No
[2023-08-06] MEDS: 0.9% Saline Lock 10 ML Syringe IV ×2 (14:09→21:49)
--- NOTE | 2023-08-06 16:18 | CASEMGMT ---
Discharge Planning A list of home health providers including quality and resource use data and consistent with the patient?s preferred geographic region, medical needs, and insurance network was created in CarePort Guide. This list was provided to the RN KAYA. Donna Brewster, Discharge Planning Asst.
--- NOTE | 2023-08-06 16:33 | CASEMGMT ---
RN CM NOTE: Per Dr Goddard, pt to have a Midline placed and to discharge on IV Zosyn q 8 hrs with stop date of 08/20/23. RN CM to room to discuss discharge planning. Pt currently having Midline placed. RN CM to f/u with pt tomorrow. Rudolph BSN RN CM
--- NOTE | 2023-08-06 17:15 | CASEMGMT ---
ANISH KIRKPATRICK NOTE: Per Dr Goddard, pt discharge on IV Zosyn Q 8 hrs w/stop date of 08/20. Midline has been placed. RN CM to room. Discussed discharge planning. Questions answered. Pt wishes to discharge home w/[facility] for SN for IV atb's. A list of HHCproviders including quality and resource use data and consistent with the patient?s preferred geographic region, medical needs, and insurance network were provided from the CarePort Guide. Pt chose [facility] as 1st preference. Call placed to [facility] and left re: referral for SN for IV atb's. Pt states she has teachable caregivers, as her dtr's and grand-daughters would be willing to learn to do IV admin. Pt provided w/list of Infusion companies and stated had no preference. Demographic sheet and script for IV Zosyn faxed to [facility] for financial determination. Rudolph LIMA RN CM
--- NOTE | 2023-08-06 17:57 | PN.HOSP_ITS ---
Reason for Visit Reason for Visit: Diagnoses Essential (primary) hypertension (08/02/23) Other hydronephrosis (08/02/23) Acute kidney failure, unspecified (08/02/23) Chronic kidney disease, unspecified (08/02/23) Urinary tract infection, site not specified (08/02/23) Subjective Subjective Patient was seen and examined today, she had her ureteral stents replaced today, she also had a PICC line inserted for outpatient IV antibiotic treatment. Epi mayer has Pseudomonas in her urine which is resistant to quinolones, infectious diseases is planned to give the patient IV Zosyn for coverage. Objective Data Objective Data Vital Signs: Vital Signs Temp Pulse Resp BP Pulse Ox O2 Del Method 97.8 F 79 18 118/59 L 98 Room Air 08/06/23 13:30 08/06/23 13:30 08/06/23 13:30 08/06/23 13:30 08/06/23 13:30 08/06/23 14:12 Oxygen Delivery Method Room Air Weight: 84.3 kg Body Mass Index (BMI) 28.2 Intake & Output: Intake and Output for Last 24 Hours 08/04/23 08/05/23 08/06/23 23:59 23:59 23:59 Intake Total 850 / 850 1850 / 1850 100 / 100 Output Total 400 / 400 Balance 850 / 850 1850 / 1850 -300 / -300 Lab / Micro Data 08/05/23 05:48 08/06/23 04:35 Labs: Laboratory Results - last 24 hr 08/02/23 13:05: Diff Path Review Reviewed 08/06/23 04:35: Sodium 143, Potassium 3.4 L, Chloride 115 H, Carbon Dioxide 21.0, Anion Gap 7, BUN 21 H, Creatinine 2.15 H, Estim Creat Clear Calc 24.56, Est GFR (MDRD) Af Amer 29 L, Est GFR (MDRD) Non-Af 24 L, BUN/Creatinine Ratio 9.8 L, Glucose 89, Calcium 7.8 L Micro: Microbiology 08/02/23 13:50 Urine Catheter - Catheter Urine Culture - Final Pseudomonas aeruginosa 08/02/23 14:10 Blood Culture (Wb) - Right Forearm Blood Culture - Preliminary No growth in 48 hours. 08/02/23 14:10 Blood Culture (Wb) - Anticubital Right Blood Culture - Preliminary No growth in 48 hours. 08/02/23 12:55 Nasal Secretion SARS-CoV-2 Antigen (Rapid) - Final Physical Exam Const alert, oriented x3, no apparent distress and healthy appearing General Appearance: cooperative, well kempt and well developed Orientation / Consciousness: awake, oriented to person, oriented to place and oriented to time HEENT normocephalic and moist oral mucous membranes Eyes PERRL, EOMs intact bilaterally and conjunctivae normal Neck supple, no JVD, thyroid normal and no carotid bruits General: trachea midline Resp normal respiratory effort and clear to auscultation bilaterally Auscultation: Negative for rales, rhonchi or wheezes Cardio regular rate, regular rhythm, no murmurs, no rub and no gallops GI normal to inspection, nondistended, normoactive bowel sounds, soft to palpation, non-tender and non-distended Extremity no clubbing, cyanosis or edema Skin no rashes or lesions noted General Skin Exam: no breakdown Neuro oriented x3, CN's II-XII intact bilaterally, no focal motor deficits and no sensory deficits noted Sensorium / Orientation: awake and alert Speech: speech normal Psych affect normal Assessment & Plan Assessment/Plan (1) Hydronephrosis: QUALIFIERS: Hydronephrosis type: other Qualified Code(s): N13.39 - Other hydronephrosis PLAN: Plan 1. Pseudomonas urinary tract infection with resistant Pseudomonas strain (qu inolone resistant)-again patient had a PICC line inserted today, she will continue on Zosyn as an outpatient per infectious diseases #2 acute kidney injury on a backdrop of chronic kidney disease stage IIIb- continue to monitor creatinine, BMP will be repeated tomorrow #3 hydronephrosis-patient had her ureteral stents replaced today, urology is participating in her care #4 hypokalemia-patient's BMP will be rechecked again tomorrow #5 essential hypertension-patient will remain on her present blood pressure medications, monitor, evaluate, assess, and treat Total clinical time spent by myself addressing the patient's medical issues, reviewing all of her data, and collaborating with the patient's care team: 35 minutes Charges/Coding Visit Charges Inpatient E&M: 38188 Subs Hosp L2
--- NOTE | 2023-08-06 19:12 | CON.PCM.ID_ITS ---
Assessment & Plan Assessment/Plan (1) Hydronephrosis: QUALIFIERS: Hydronephrosis type: other Qualified Code(s): N13.39 - Other hydronephrosis (2) Complicated urinary tract infection: PLAN: Now s/p 08/06/23 bilat stent exchange by Dr. Strickland. Ucx again with PsA. On zosyn. Will order midline and 2 week course home iv abx. 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 No n/v/d. No dysuria. Came to ED, admitted on zosyn. Taken to OR 08/[address] Strickland for stent exchange. Feeling better this PM, pain resolved. Full ROS performed and neg except as noted above. PFSH Medical History Acute diarrhea LULY (acute kidney injury) Asthma Dunbar's palsy Bilateral hydronephrosis Bladder disease Blood disorder Bruising Cancer Cardiology follow-up encounter Cervical cancer Chronic renal failure, stage 4 (severe) Easy bruising Essential hypertension Former smoker Gout High anion gap metabolic acidosis History of biliary stent insertion History of cervical cancer History of Clostridium difficile infection History of COVID-19 History of irregular heartbeat History of renal disease Hx of cataract Hx of echocardiogram Hx of vertigo Hyperlipidemia Hypertension Hypokalemia Hyponatremia Leg cramps Lymphocytosis Mild intermittent asthma MRSA infection Near syncope Problem with dialysis access Sepsis Status post placement of implantable loop recorder (~03/29/20) Thyroid disease Urinary incontinence UTI (urinary tract infection) Wears dentures Home Medications albuterol sulfate 90 mcg/actuation aerosol inhaler (Ventolin HFA) 2 puff inhalation Q6H PRN Sob &/Or Wheezing 07/25/18 [History Last Taken 08/01/23] metoprolol tartrate 50 mg tablet 50 mg PO BID blood pressure 01/27/19 [History Last Taken 08/01/23] potassium chloride 20 mEq tablet,extended release(part/cryst) 20 meq PO DAILY supplement 09/01/20 [History Last Taken 08/01/23] amlodipine 2.5 mg tablet 2.5 mg PO DAILY BP #90 tabs 08/12/21 [Rx Last Taken 08/01/23] ipratropium bromide 42 mcg (0.06 %) nasal spray 2 spray intranasal DAILY 11/23/21 [History Last Taken 08/01/23] pantoprazole 40 mg tablet,delayed release 40 mg PO DAILY 03/27/23 [History Last Taken 08/01/23] piperacillin-tazobactam 3.375 gram intravenous solution 3.375 g IV Q8H 13 days 08/06/23 [Rx Last Taken Unknown] Allergy/AdvReac Type Severity Reaction Status Date / Time pravastatin Allergy Severe Chest Verified 06/08/23 09:50 tightness procaine [From Novocain] Allergy Severe NEEDS Verified 06/08/23 09:50 FOLLOW-UP sulfamethoxazole Allergy Severe Shortness Verified 06/08/23 09:50 [From Bactrim] of breath trimethoprim [From Bactrim] Allergy Severe Shortness Verified 06/08/23 09:50 of breath Ydcegnx-YRF-OzL Reductase Allergy Anaphylaxis Verified 06/08/23 09:50 Inhibitor clindamycin AdvReac Severe unsure of Verified 06/08/23 09:50 reaction methylprednisolone AdvReac Severe Pain in Verified 06/08/23 09:50 joints levofloxacin [From Levaquin] AdvReac UNSURE OF Verified 06/08/23 09:50 REACTION Family History Father , 32 yrs old CAD (coronary artery disease) History of coronary artery bypass surgery Mother Cancer Lung CA, Hx tobacco use. Surgical History History of arteriovenostomy for renal dialysis (~09/2021) History of cardiac catheterization (~01/08/18) History of cardiac catheterization History of cholecystectomy History of excision of mass History of hysterectomy History of loop recorder history of radium implant Hx of cystoscopy S/P arteriovenous (AV) fistula creation Social History household members: spouse and children number of children: 6 current occupational status: retired history of recent travel: No Smoking Status: Former smoker second hand exposure: No alcohol intake: never substance use type: does not use what type of physical activity do you participate in: walking saurabh/congregational: Non-Spiritism/Independent seatbelt use: always do you feel safe at home: Yes additional social history: - Fernando Physical Exam Const alert, oriented x3 and no apparent distress General Appearance: cooperative and well developed HEENT normocephalic and head/scalp atraumatic Eyes PERRL and EOMs intact bilaterally Neck supple and No nodes Resp normal air movement and clear to auscultation bilaterally Cardio regular rate and regular rhythm GI soft to palpation, non-tender and non-distended Extremity General Extremity: Negative for edema Skin no rashes or lesions noted Neuro CN's II-XII intact bilaterally Lab / Micro Data Attestation: I reviewed the patient's lab results. 08/05/23 05:48 08/06/23 04:35 Labs: Laboratory Results - last 24 hr 08/02/23 13:05: Diff Path Review Reviewed 08/06/23 04:35: Sodium 143, Potassium 3.4 L, Chloride 115 H, Carbon Dioxide 21.0, Anion Gap 7, BUN 21 H, Creatinine 2.15 H, Estim Creat Clear Calc 24.56, Est GFR (MDRD) Af Amer 29 L, Est GFR (MDRD) Non-Af 24 L, BUN/Creatinine Ratio 9.8 L, Glucose 89, Calcium 7.8 L
[2023-08-06] MEDS: Heparin Injection (Vial) 5,000 UNIT/ML VIAL 5000 UNIT SC (22:04)
[2023-08-07 06:28] VITALS: BP 122/62; PULSE 83; RESP 18; TEMP 36.7; O2SAT 96
[2023-08-07] MEDS: Piperacil/Tazobactam 3.375 GM in 0.9% Normal Saline (50mL MB+) 50 ML IV ×2 (06:30→13:27)
[2023-08-07 07:10] LABS: Absolute Lymphocyte Count 4.81 X10^3/uL (0.83-4.51); Absolute Neutrophil Count 4.3 X10^3/uL (2.0-7.7); Basophil# 0.06 X10^3/uL; Basophil% 0.6 % (0-1); Hematocrit 36.4 % (37-47); Hemoglobin 11.7 g/dL (12.0-15.0); Lymphocyte # 4.81 X10^3/ul (0.83-4.51); Mean Corp Hgb Conc 32.1 g/dL (32-36); Mean Corpuscular Hgb 31.8 pg (27.0-32.0); Mean Corpuscular Volume 98.9 fL (81-99); Monocyte# 0.59 X10^3/uL; Monocyte% 5.9 % (0-10); NRBC Flagged by Analyzer 0 % (0-5); Neutrophil # 4.31 X10^3/uL (2.7-7.7); Platelet Count 271 K/mm3 (150-450); RBC Distribution Width CV 14.6 % (11.6-14.6); RBC Distribution Width SD 53.8 fl (35.1-43.9); Red Blood Count 3.68 M/mm3 (4.2-5.4)
[2023-08-07 07:44] LABS: Anion Gap 7 (5-15); BUN 18 mg/dL (7-18); BUN/Creat Ratio 8.5 RATIO (10-20); Calcium,Total 7.5 mg/dL (8.5-10.1); Chloride 114 mmol/L (98-107); Creatinine, Serum 2.11 mg/dL (0.55-1.02); EST Glomerular Filtration Rate 25 mL/min (>60); Est Glom Filt Rate - Afr Amer 30 mL/min (>60); Estimated Creatinine Clearance 25.03 ml/min; Glucose 96 mg/dL (74-106); Potassium 3.3 mmol/L (3.5-5.1); Sodium Level 141 mmol/L (136-145)
[2023-08-07 07:48] VITALS: BP 125/63; PULSE 85; RESP 18; TEMP 36.6; O2SAT 100
[2023-08-07] MEDS: Heparin Injection (Vial) 5,000 UNIT/ML VIAL 5000 UNIT SC (09:55)
[2023-08-07] MEDS: Ipratropium Bromide 0.06% NASAL SPRAY 2 SPRAY NASAL (09:55)
[2023-08-07 09:56] VITALS: PULSE 85
[2023-08-07] MEDS: Pantoprazole Sodium 40 MG Tablet PO (09:56)
[2023-08-07] MEDS: amLODIPine 2.5 MG Tablet PO (09:56)
[2023-08-07] MEDS: Metoprolol Tartrate 25 MG Tablet PO (09:56)
--- NOTE | 2023-08-07 10:05 | CASEMGMT ---
Discharge Planning Infusion referral sent to [facility] via [facility]. Donna Brewster, Discharge Planning Asst.
--- NOTE | 2023-08-07 10:58 | CASEMGMT ---
Addendum entered by Bella Fontana 08/07/23 14:40: [facility] will accept pt for SOC tomorrow morning. IV rx and midline info sent via careport. RN CM into pt room, she is aware that HHC will start tomorrow and that [facility] will deliver this evening. She is agreeable to the cost of $215.35/wk for med/supplies. Pt denies further needs. Orders received for flushes. Updated [facility]. Addendum entered by Bella Fontana 08/07/23 13:13: Sent dc instructions to [facility] via careport. Spoke with ID who will follow pt for HHC. Pt dose at 2pm and will not be completed until after office closes, unable to obtain appt with on day of dc. Communication with [facility] at [facility], awaiting confirmation if able to accept for services. Original Note: TC to [facility] at [facility] to see if able to accept. DC chemistry research assistant sent IV referral to [facility]. Plan for pt to dc today. Awaiting acceptance from [facility].
--- NOTE | 2023-08-07 11:44 | DCINST_ITS ---
Discharge Instructions Diet Discharge Diet: No restrictions Activity Discharge Activity: Return to Normal Activity Weight Bearing Status: Full weight bearing Follow Up Care Test Results: Test results from this visit will be discussed in further detail at your follow- up appointment, if applicable. Discharge Plan Admission Admit Date/Time: 08/02/23 15:49 Primary Reason for Your Visit: urinary tract infection Attending Provider: Newton Light Primary Care Provider: Gerardo García Chi Consulting Providers: Joshua Strickland; Holly Echeverria; Rafa Lofton; Ky Goddard Discharge Orders/Prescriptions Prescriptions: New piperacillin-tazobactam 3.375 gram recon soln 3.375 g IV Q8H 13 Days Rx Instructions: stop date 08/20/23 dx: pseudomonas pyelonephritis weekly bmp, cbc. Fax to [phone] Continued albuterol sulfate [Ventolin HFA] 90 mcg/actuation HFA aerosol inhaler 2 puff INHALATION Q6H PRN (Reason: Sob &/Or Wheezing) pantoprazole 40 mg tablet,delayed release (DR/EC) 40 mg PO DAILY Hold Instructions: Order Completed metoprolol tartrate 50 MG tablet 50 mg PO BID potassium chloride 20 MEQ tablet,ER particles/crystals 20 meq PO DAILY ipratropium bromide 42 mcg (0.06 %) spray,non-aerosol 2 spray INTRANASAL DAILY amlodipine 2.5 mg tablet 2.5 mg PO DAILY Qty: 90 3RF Referrals / Follow Up: Gerardo García Chi, MD [Primary Care Provider] - Within 1 Week (get a repeat BMP lab test this Sunday) Disposition Disposition (needs filled in before D/C Order can be placed): Home Health Service
--- NOTE | 2023-08-07 11:51 | DS.PCM_ITS ---
Providers Date of Admission: 08/02/23 Date of Discharge: 08/07/23 Primary Care Physician: Dr. Gerardo García MD Consultations 08/02/23 18:45 Consult: Urology Routine Consulting Provider: Joshua Strickland Reason for Consult: Ureteral stenting, here w/ complicated UTI and hydronephrosis EMERGENT Consult: No MD Notified: Yes Date Notified: 08/02/23 Time Notified: 18:45 Method of Notification: Verbal 08/05/23 12:37 Consult: Infectious Disease Routine Consulting Provider: Ky Goddard Reason for Consult: UTI, needs IV abx. EMERGENT Consult: No MD Notified: Yes Date Notified: 08/06/23 Time Notified: 09:43 Method of Notification: Text Reason For Visit: COMPLICATED UTI Diagnosis Discharge Diagnosis (1) Hydronephrosis: Status: Acute Code(s): N13.30 - Unspecified hydronephrosis Qualifiers: Hydronephrosis type: other Qualified Code(s): N13.39 - Other hydronephrosis (2) Complicated urinary tract infection: Status: Acute Code(s): N39.0 - Urinary tract infection, site not specified Plan 1. Pseudomonas urinary tract infection with resistant Pseudomonas strain (quinolone resistant)-again patient had a PICC line inserted today, she will con tinue on Zosyn as an outpatient per infectious diseases #2 acute kidney injury on a backdrop of chronic kidney disease stage IIIb- continue to monitor creatinine, BMP will be repeated tomorrow #3 hydronephrosis-patient had her ureteral stents replaced today, urology is participating in her care #4 hypokalemia-patient's BMP will be rechecked again tomorrow #5 essential hypertension-patient will remain on her present blood pressure medications, monitor, evaluate, assess, and treat Total clinical time spent by myself addressing the patient's medical issues, reviewing all of her data, and collaborating with the patient's care team: 35 minutes Medications at Discharge Home Medications albuterol sulfate 90 mcg/actuation aerosol inhaler (Ventolin HFA) 2 puff inhalation Q6H PRN Sob &/Or Wheezing 07/25/18 metoprolol tartrate 50 mg tablet 50 mg PO BID blood pressure 01/27/19 potassium chloride 20 mEq tablet,extended release(part/cryst) 20 meq PO DAILY supplement 09/01/20 amlodipine 2.5 mg tablet 2.5 mg PO DAILY BP #90 tabs 08/12/21 ipratropium bromide 42 mcg (0.06 %) nasal spray 2 spray intranasal DAILY 11/23/21 pantoprazole 40 mg tablet,delayed release 40 mg PO DAILY 03/27/23 piperacillin-tazobactam 3.375 gram intravenous solution 3.375 g IV Q8H 13 days 08/06/23 Hospital Course Operations - (Cystoscopy and right retrograde pyelogram and right stent placement and left retrograde pyelogram and left stent placement) Procedures PICC line placement Summary of Care Provided Minutes Spent on Discharge: 31 Hospital Course: This 72-year-old white female was seen in the emergency room at [facility] with complaints of fever, weakness, and nausea, patient's stated she had a history of sepsis in the past secondary to urinary tract infect ions. Labs obtained in the emergency room revealed an elevated white blood cell count, chest x-ray was unremarkable. Creatinine was noted to be elevated at 2.45. Patient was admitted for acute urinary tract infection and acute kidney injury, she was seen in consultation by urology who performed a retrograde pyelogram bilaterally and inserted stents in both ureters, she was also seen by infectious diseases who recommended placement of a PICC line and outpatient IV antibiotics. Urine culture resulted positive for Pseudomonas which was resistant to quinolones. On 08/07/2023, patient was seen and examined: On examination she appeared in good health and spirits, she does not appear to be in any distress. Vital signs as documented. Skin warm and dry and without overt rashes. Neck without JVD, thyroid appears normal, trachea is midline, neck is supple. Lungs clear, normal air movement was noted. Heart exam notable for regular rhythm, normal sounds and absence of murmurs, rubs or gallops. Abdomen unremarkable and without evidence of organomegaly, masses, or abdominal aortic enlargement, bowel sounds are present in all 4 quadrants, no abdominal tenderness was noted. Extremities nonedematous, no cyanosis was noted, no clubbing was noted. Neuro: Cranial nerves II through XII are grossly intact, no focal motor deficits were noted, sensation to light touch and pinprick is intact, motor exam 5/5 throughout. Psych: Patient is alert and oriented x3, she does not appear anxious or depre ssed, she does not appear agitated. Patient appears stable for discharge home on 08/07/2023. Weight / BMI Weight Weight: 84.3 kg Body Mass Index (BMI) 28.2 ABG / Lab / Microbiology Data 08/07/23 07:00 08/07/23 07:00 Laboratory: Laboratory Results - last 24 hr 08/07/23 07:00: WBC 10.0, RBC 3.68 L, Hgb 11.7 L, Hct 36.4 L, MCV 98.9, MCH 31.8, MCHC 32.1, RDW Std Deviation 53.8 H, RDW Coeff of [place]wey 14.6, Plt Count 271, MPV 10.0, Immature Gran % (Auto) 0.500, Neut % (Auto) 43.0 L, Lymph % (Auto) 48. 0 H, [place] % (Auto) 5.9, Eos % (Auto) 2.0, Baso % (Auto) 0.6, Absolute Neuts (auto) 4.3, Absolute Lymphs (auto) 4.81 H, Nucleated RBC % 0, Sodium 141, Pota ssium 3.3 L, Chloride 114 H, Carbon Dioxide 20.0 L, Anion Gap 7, BUN 18, Creatinine 2.11 H, Estim Creat Clear Calc 25.03, Est GFR (MDRD) Af Amer 30 L, Est GFR (MDRD) Non-Af 25 L, BUN/Creatinine Ratio 8.5 L, Glucose 96, Calcium 7.5 L Microbiology: Microbiology 08/02/23 13:50 Urine Catheter - Catheter Urine Culture - Final Pseudomonas aeruginosa 08/02/23 14:10 Blood Culture (Wb) - Right Forearm Blood Culture - Preliminary No growth in 48 hours. 08/02/23 14:10 Blood Culture (Wb) - Anticubital Right Blood Culture - Preliminary No growth in 48 hours. 08/02/23 12:55 Nasal Secretion SARS-CoV-2 Antigen (Rapid) - Final D/C Instructions Discharge Diet: No restrictions Weight Bearing Status: Full weight bearing Meaningful Use Info Meaningful Use Diagnoses (Choose all that apply): None applicable Discharge Plan Admission Admit Date/Time: 08/02/23 15:49 Primary Reason for Your Visit: urinary tract infection Attending Provider: Newton Light Primary Care Provider: Gerardo García Chi Consulting Providers: Joshua Strickland; Holly Echeverria; Rafa Lofton; Ky Goddard Discharge Orders/Prescriptions Prescriptions: New piperacillin-tazobactam 3.375 gram recon soln 3.375 g IV Q8H 13 Days Rx Instructions: stop date 08/20/23 dx: pseudomonas pyelonephritis weekly bmp, cbc. Fax to [phone] Continued albuterol sulfate [Ventolin HFA] 90 mcg/actuation HFA aerosol inhaler 2 puff INHALATION Q6H PRN (Reason: Sob &/Or Wheezing) pantoprazole 40 mg tablet,delayed release (DR/EC) 40 mg PO DAILY Hold Instructions: Order Completed metoprolol tartrate 50 MG tablet 50 mg PO BID potassium chloride 20 MEQ tablet,ER particles/crystals 20 meq PO DAILY ipratropium bromide 42 mcg (0.06 %) spray,non-aerosol 2 spray INTRANASAL DAILY amlodipine 2.5 mg tablet 2.5 mg PO DAILY Qty: 90 3RF Referrals / Follow Up: Gerardo García Chi, MD [Primary Care Provider] - 08/14/23 3:40 pm (get a repeat BMP lab test this Sunday) Disposition Disposition (needs filled in before D/C Order can be placed): Home Health Service Charges/Coding Visit Charges Inpatient E&M: 82559 Disch Hosp >30min
[2023-08-07] MEDS: Potassium Chloride Oral Tablet 20 MEQ 40 MEQ PO (13:28)
[2023-08-07 14:09] VITALS: BP 112/64; PULSE 84; RESP 18; TEMP 36.8; O2SAT 99
[2023-08-07 17:01] VITALS: BP 130/73; PULSE 95; RESP 18; TEMP 36.7; O2SAT 100
[2023-08-07] MEDS: Loperamide 2 MG Capsule 4 MG PO (17:38)
== END 2023-08-07 17:47 | disposition home health service (06) | DRG 660 ==
LOC: ED 14:41 → MS3 16:16
PROVIDERS: Urology; Admitting Provider Internal Medicine; Emergency Provider Emergency Medicine; PCP Family Medicine Geriatric Medicine; Visit Provider Internal Medicine
PROC: 0T788DZ Dilation of Bilateral Ureters with Intraluminal Device, Via Natural or Artificial Opening Endoscopic (ICD-10-PCS; CPT 52332; principal; 2023-08-06 11:50)
DX: N13.6 Pyonephrosis (principal); Z16.23 Resistance to quinolones and fluoroquinolones; N17.9 Acute kidney failure, unspecified; N18.32 Chronic kidney disease, stage 3b; I12.9 Hypertensive chronic kidney disease with stage 1 through stage 4 chronic kidney disease, or unspecified chronic kidney disease; E87.6 Hypokalemia; B96.5 Pseudomonas (aeruginosa) (mallei) (pseudomallei) as the cause of diseases classified elsewhere; Z96.0 Presence of urogenital implants; Z85.41 Personal history of malignant neoplasm of cervix uteri; Z86.16 Personal history of COVID-19; Z87.891 Personal history of nicotine dependence
CPT/HCPCS: 36415; 71045; 74176; 76000; 80048; 80053; 81001; 83605; 83690; 85025; 87040; 87077; 87086; 87088; 87184; 87186; 87811; 93005; 99285; J7030; J7050; A4216; C1769; C1874; J2405

== ENCOUNTER → 2023-08-10 | Outpatient (CLI) | payer MEDICARE, SELFPAY ==
[2023-08-10 10:46] LABS: PTHIN 90.9 pg/mL (18.4-80.1)
== END | disposition home or self-care (01) ==
LOC: LAB 08:23
PROVIDERS: PCP Family Medicine Geriatric Medicine; Referring Provider Internal Medicine Nephrology; Visit Provider Internal Medicine Nephrology
DX: N25.81 Secondary hyperparathyroidism of renal origin (principal)
CPT/HCPCS: 36415; 83970

== ENCOUNTER → 2023-08-17 | Outpatient (CLI) | payer MEDICARE, SELFPAY | END | disposition home or self-care (01) | LOC: LABSPEC 12:05 | PROVIDERS: PCP Family Medicine Geriatric Medicine; Visit Provider Family Medicine Geriatric Medicine | DX: T80.212A Local infection due to central venous catheter, initial encounter (principal) | CPT/HCPCS: 87070; 87205 ==

== ENCOUNTER 2023-09-19 09:23 | Inpatient (IN) | payer MEDICARE, SELFPAY ==
[2023-09-19 09:24] VITALS: BP 116/79; PULSE 99; RESP 14; TEMP 36.3; O2SAT 98
[2023-09-19 09:45] VITALS: BMI 28.2
--- NOTE | 2023-09-19 09:58 | EX.ED.DYSGE1 ---
HPI History of Present Illness Chief Complaint: General Illness Detail of Chief Complaint: Has not felt well since Sunday Informant: patient Onset/Context/Timing Onset: Days (Onset Sunday, September 17) Context: Sudden Onset Timing: Continuous and Waxes and wanes Quality: Chills, elevated temperature, diarrhea starting yesterday Location: Generalized and GI Current Severity: Mild Maximum Severity: Moderate Worsened by: Nothing specifically Relieved by: Nothing Associated Symptoms Associated Symptoms: Per HPI narrative Narrative Narrative: Patient is a 73-year-old woman who presents because of elevated temperature. She states when her temperature goes above 99.4 she has been septic. She had a recent admission. She states a couple of weeks ago. Review of prior records indicate patient was admitted on and discharged on for urinary tract infection caused by Pseudomonas. The Pseudomonas strain was resistant to quinolones. Patient required IV antibiotics. PICC line was placed. She also had hydronephrosis and had her ureteral stents replaced by urology. She also has chronic kidney disease stage IIIb. Patient states her temperature on Sunday was 99.4. Yesterday had hit a Tmax of 99.9. Patient also had chills yesterday. She has had 3 loose watery stools since yesterday afternoon. There was no blood or mucus noted. She does report continuous nausea. She has had no vomiting. She denies dysuria, frequency, urgency or hematuria. She states she does not always have urinary tract symptoms when she has infection. She denies headache, visual, ocular auditory symptoms. Patient does report rhinorrhea. She has history of allergies. She denies sore throat. She denies cough or shortness of breath. She denies chest discomfort. She denies abdominal pain. She denies back or flank pain. She denies neurologic symptoms. Prior similar symptoms: No Recent Illness/Hospitalization: Yes [facility] Medical History Acute diarrhea LULY (acute kidney injury) Asthma Dunbar's palsy Bilateral hydronephrosis Bladder disease Blood disorder Bruising Cancer Cardiology follow-up encounter Cervical cancer Chronic renal failure, stage 4 (severe) Easy bruising Essential hypertension Former smoker Gout High anion gap metabolic acidosis History of biliary stent insertion History of cervical cancer History of Clostridium difficile infection History of COVID-19 History of irregular heartbeat History of renal disease Hx of cataract Hx of echocardiogram Hx of vertigo Hyperlipidemia Hypertension Hypokalemia Hyponatremia Leg cramps Lymphocytosis Mild intermittent asthma MRSA infection Near syncope Problem with dialysis access Sepsis Status post placement of implantable loop recorder (~03/29/20) Thyroid disease Urinary incontinence UTI (urinary tract infection) Wears dentures Home Medications albuterol sulfate 90 mcg/actuation aerosol inhaler (Ventolin HFA) 2 puff inhalation Q6H PRN Sob &/Or Wheezing 07/25/18 [History Last Taken 08/01/23] metoprolol tartrate 50 mg tablet 50 mg PO BID blood pressure 01/27/19 [History Last Taken 08/01/23] potassium chloride 20 mEq tablet,extended release(part/cryst) 20 meq PO DAILY supplement 09/01/20 [History Last Taken 08/01/23] amlodipine 2.5 mg tablet 2.5 mg PO DAILY BP #90 tabs 08/12/21 [Rx Last Taken 08/01/23] ipratropium bromide 42 mcg (0.06 %) nasal spray 2 spray intranasal DAILY 11/23/21 [History Last Taken 08/01/23] pantoprazole 40 mg tablet,delayed release 40 mg PO DAILY 03/27/23 [History Last Taken 08/01/23] Allergy/AdvReac Type Severity Reaction Status Date / Time pravastatin Allergy Severe Chest Verified 09/19/23 09:25 tightness procaine [From Novocain] Allergy Severe NEEDS Verified 09/19/23 09:25 FOLLOW-UP sulfamethoxazole Allergy Severe Shortness Verified 09/19/23 09:25 [From Bactrim] of breath trimethoprim [From Bactrim] Allergy Severe Shortness Verified 09/19/23 09:25 of breath [id number] Reductase Allergy Anaphylaxis Verified 09/19/23 09:25 Inhibitor clindamycin AdvReac Severe unsure of Verified 09/19/23 09:25 reaction methylprednisolone AdvReac Severe Pain in Verified 09/19/23 09:25 joints levofloxacin [From Levaquin] AdvReac UNSURE OF Verified 09/19/23 09:25 REACTION Family History Father , 32 yrs old CAD (coronary artery disease) History of coronary artery bypass surgery Mother Cancer Lung CA, Hx tobacco use. Surgical History History of arteriovenostomy for renal dialysis (~09/2021) History of cardiac catheterization (~01/08/18) History of cardiac catheterization History of cholecystectomy History of excision of mass History of hysterectomy History of loop recorder history of radium implant Hx of cystoscopy S/P arteriovenous (AV) fistula creation Social History household members: spouse and children number of children: 6 current occupational status: retired history of recent travel: No Smoking Status: Former smoker second hand exposure: No alcohol intake: never substance use type: does not use what type of physical activity do you participate in: walking saurabh/synagogue: Non-Christianity/Independent seatbelt use: always do you feel safe at home: Yes additional social history: - Fernando PALOMO STACIA ED Constitutional Constitutional ED: Reports chills, fever(s) and subjective; Denies sweats or weight loss Eyes Eyes: Denies blurry vision, change in vision or diplopia ENT ENT ED: Reports rhinorrhea; Denies ear pain or sore throat Cardiovascular Cardiovascular: Denies chest pain, orthopnea, palpitations, paroxysmal nocturnal dyspnea or racing heartbeat Respiratory/Chest Respiratory/Chest: Denies cough, dyspnea, dyspnea on exertion, orthopnea or paroxysmal nocturnal dyspnea Gastrointestinal Gastrointestinal: Reports diarrhea and nausea; Denies abdominal pain, constipation, melena or vomiting Genitourinary Genitourinary ED: Denies dysuria, hematuria or urinary frequency Musculoskeletal Musculoskeletal: Denies arthralgias, back pain, myalgias or neck pain Integumentary Reports other Details: Bruising and skin tears secondary to tape. There is also evidence of dry skin. ; Denies rash Neurologic Neurologic: Reports weakness; Denies headache(s) or paresthesias Psychiatric Psychiatric: Denies anxiety Hematologic/Lymphatic Hematologic/Lymphatic: Reports easy bruising; Denies easy bleeding EXAM Physical Exam Const Vital Signs: 09/19/23 09:24 09/19/23 09:35 09/19/23 09:59 Temperature 97.3 F L Temperature Source Temporal Pulse Rate 99 Pulse Rate [Lying] 86 Pulse Rate [Sitting (for 1 minute prior to obtaining)] 89 Pulse Rate [Standing (for 1 minute prior to obtaining)] 93 Respiratory Rate 14 Respiratory Effort Normal Respiratory Pattern Normal Blood Pressure 116/79 Blood Pressure [Lying] 113/65 Blood Pressure [Sitting (for 1 minute prior to obtaining)] 101/79 Blood Pressure [Standing (for 1 minute prior to obtaining)] 101/73 Blood Pressure Mean 91 Blood Pressure Mean [Lying] 81 Blood Pressure Mean [Sitting (for 1 minute prior to obtaining)] 86 Blood Pressure Mean [Standing (for 1 minute prior to obtaining)] 82 Pulse Ox 98 Oxygen Delivery Method Room Air Positive well nourished and well developed General Appearance ED: well developed and NAD; Negative for cyanotic, diaphoretic or pallor HEENT Reports dry mucous membranes HEENT Narrative: Head is atraumatic and normocephalic. Ears are normal. Nares are patent. Posterior pharynx out erythema or exudate. Uvula is midline. Mouth ED: Yes dry mucous membranes Mouth: dry mucous membranes Eyes PERRL and EOMs intact bilaterally General Eye ED: Negative for pale conjunctiva or scleral icterus Neck no lymphadenopathy, supple and no JVD Chest Wall inspection of chest normal and palpation of chest normal Resp normal respiratory effort and clear to auscultation bilaterally Cardio regular rate, regular rhythm, S1 normal heart sound, S2 normal heart sound and no murmurs GI normal to inspection, nondistended, normoactive bowel sounds, non-tender, non-distended and no masses; Negative for hepatosplenomegaly Palpation: soft Back/Spine no CVA tenderness Cervical Spine: Negative for cervical spine tenderness Thoracic Spine / Upper Back: Negative for thoracic spinal tenderness Lumbar Spine / Lower Back: Negative for lumbar spinal tenderness Extremity normal to inspection General Extremety ED: Negative for edema or tenderness General Extremity: Negative for edema Neuro oriented x3, CN's II-XII intact bilaterally and no sensory deficits noted Sensorium / Orientation: alert Motor Exam: strength 5/5 throughout Psych mental status grossly normal Skin Skin Narrative: Patient has dry skin. There are multiple bruises noted. Patient attributes this to multiple IVs blood draws and tape. General Skin Exam: Negative for elasticity normal, jaundice or pallor MDM MDM MDM Narrative Medical decision making narrative: With patient having diarrhea and was on antibiotics for 2 weeks need to evaluate for similar center colitis. C. difficile toxin was ordered. CBC was ordered to assess white count and differential. Patient has been under the care of a oncologist because of concern for leukemia. Electrolyte panel was obtained to assess renal function since she has history of kidney disease and to evaluate for hypokalemia. She has history of hypokalemia per old records. UA was obtained to assess for urinary tract infection. Since patient only has 1 SIRS criteria blood cultures were not obtained nor was a lactate ordered. Urine culture was ordered. History & Record Review Additional record(s) reviewed:: Prior inpatient record (Documented HPI narrative), Prior outpatient record, Prior ED visit and Prior labs Lab Data Attestation: I reviewed the patient's lab results. Lab results narrative: White count is elevated at 20.8 thousand without a shift. Absolute neutrophil count is elevated. Basic metabolic panel reveals significant rise in creatinine from baseline. Creatinine is 2.88. Macro urinalysis reveals proteinuria, occult blood, nitrites and leukoesterase. Micro is pending. Urine culture was sent. Based on most recent culture and sensitivity patient will receive meropenem. Last creatinine was 1.66 with a GFR 32 EFR now is 17. Microscopic urine reveals pyuria without bacteria. Labs: Laboratory Results - last 24 hr 09/19/23 09/19/23 10:15 11:30 WBC 20.8 H RBC 4.54 Hgb 14.3 Hct 43.7 MCV 96.3 MCH 31.5 MCHC 32.7 RDW Std Deviation 51.6 H RDW Coeff of Dewey 14.6 Plt Count 442 MPV 10.2 Immature Gran % (Auto) 0.700 Neut % (Auto) 64.2 Lymph % (Auto) 28.9 [place] % (Auto) 5.5 Eos % (Auto) 0.3 Baso % (Auto) 0.4 Absolute Neuts (auto) 13.4 H Absolute Lymphs (auto) 6.02 H Nucleated RBC % 0 Differential Comment SCANNED Sodium 134 L Potassium 4.1 Chloride 104 Carbon Dioxide 20.0 L Anion Gap 10 BUN 23 H Creatinine 2.88 H Estim Creat Clear Calc 18.07 Est GFR (MDRD) Af Amer 21 L Est GFR (MDRD) Non-Af 17 L BUN/Creatinine Ratio 8.0 L Glucose 98 Calcium 8.4 L Urine Color Yellow Urine Clarity Cloudy Urine pH 6.0 Ur Specific [place] 1.015 Urine Protein 100 H Urine Glucose (UA) Normal Urine Ketones Negative Urine Occult Blood 150 H Urine Nitrite Positive H Urine Bilirubin Negative Urine Urobilinogen Normal Ur Leukocyte Esterase 500 H Urine RBC 0 SEEN Urine WBC >100 SEEN Ur Squamous Epith Cells 0 SEEN Urine Bacteria 0 SEEN Urine Mucus 0 SEEN Management Discussion w/another healthcare provider: Hospitalist (Poke with hospitalist Dr. Knight. Patient be a full admission.) Treatment and Re-Evaluation :: Since patient has elevated white count with pyuria and recent urinary tract infection and significant increase in creatinine with complaint of nausea and diarrhea will call hospitalist for admission versus observation. Discharge Plan Dx/Rx/DC Orders Clinical Impression: Acute dehydration, Pyuria, Diarrhea, Leukocytosis, Acute kidney injury superimposed on chronic kidney disease Disposition Disposition: Acute Care Hospital [facility]
[2023-09-19 09:59] VITALS: BP 101/73; BP 101/79; BP 113/65; PULSE 86; PULSE 89; PULSE 93
[2023-09-19] MEDS: 0.9% Normal Saline (1000mL) 1,000 ML 1000 ML IV (10:28)
[2023-09-19] MEDS: Ondansetron 4 MG/2 ML Vial IV (10:29)
[2023-09-19 10:33] LABS: Absolute Lymphocyte Count 6.02 X10^3/uL (0.83-4.51); Absolute Neutrophil Count 13.4 X10^3/uL (2.0-7.7); Basophil# 0.08 X10^3/uL; Basophil% 0.4 % (0-1); Eosinophil# 0.07 X10^3/uL; Eosinophils% 0.3 % (0-5); Hematocrit 43.7 % (37-47); Hemoglobin 14.3 g/dL (12.0-15.0); Lymphocyte # 6.02 X10^3/ul (0.83-4.51); Lymphocyte % 28.9 % (19-41); Mean Corp Hgb Conc 32.7 g/dL (32-36); Mean Corpuscular Hgb 31.5 pg (27.0-32.0); Mean Corpuscular Volume 96.3 fL (81-99); Mean Platelet Vol. 10.2 fl (6.2-12.0); Monocyte# 1.15 X10^3/uL; Monocyte% 5.5 % (0-10); NRBC Flagged by Analyzer 0 % (0-5); Neutrophil # 13.37 X10^3/uL (2.7-7.7); Neutrophil % 64.2 % (47-70); POSITIVE DIFFERENTIAL YES; POSITIVE MORPHOLOGY YES; Platelet Count 442 K/mm3 (150-450); RBC Distribution Width CV 14.6 % (11.6-14.6); RBC Distribution Width SD 51.6 fl (35.1-43.9); Red Blood Count 4.54 M/mm3 (4.2-5.4); White Blood Count 20.8 K/mm3 (4.4-11.0)
[2023-09-19 10:38] LABS: Differential Indicated SCAN CRITERIA MET
[2023-09-19 10:43] LABS: Anion Gap 10 (5-15); BUN 23 mg/dL (7-18); Calcium,Total 8.4 mg/dL (8.5-10.1); Chloride 104 mmol/L (98-107); Creatinine, Serum 2.88 mg/dL (0.55-1.02); EST Glomerular Filtration Rate 17 mL/min (>60); Est Glom Filt Rate - Afr Amer 21 mL/min (>60); Estimated Creatinine Clearance 18.07 ml/min; Glucose 98 mg/dL (74-106); Potassium 4.1 mmol/L (3.5-5.1); Sodium Level 134 mmol/L (136-145)
[2023-09-19 11:20] LABS: Differential Comment SCANNED
[2023-09-19 11:34] LABS: Bacteria 0 SEEN /hpf (None Seen); Mucous, Urine 0 SEEN /hpf (<or=2+); Red Blood Cells-Urine 0 SEEN /hpf (0-5); Squamous Epithelial Cells - UA 0 SEEN /hpf (5-10)
[2023-09-19 11:39] LABS: Color, Urine Yellow (Yellow); Glucose, Dipstick Normal (Normal); Ketone-Dipstick Negative (Negative); Leukocyte Esterase-Dipstick 500 /ul (Negative); Nitrite-Dipstick Positive (Negative); Occult Blood-Urine 150 /ul (Negative); Protein-Dipstick 100 mg/dl (Negative); Specific Gravity, Urine 1.015 (1.002-1.030); Urine Bilirubin Dipstick Negative (Negative); Urine Clarity Cloudy (Clear); Urine Urobilinogen Normal (Normal)
[2023-09-19 12:00] LABS: White Blood Cells >100 SEEN /hpf (0-5)
--- NOTE | 2023-09-19 12:49 | NURSING ---
MED SURG DE MATEUSZ ACUTE ON CHRONIC KIDNEY INJURY, UTI, LEUKOCYTOSIS
[2023-09-19] MEDS: Meropenem 1 GM in 0.9% Normal Saline (100mL MB+) 100 ML IV ×2 (12:51→21:45)
--- NOTE | 2023-09-19 13:38 | PCM.HP.STD ---
[facility] - General General Date of Admission: 09/19/23 Date of Service: 09/19/23 Chief Complaint: Low-grade fever with loose stools and dehydration HPI Narrative TODD DELONG, is a 73 F with a past medical history of essential hypertension, hyperlipidemia (with history of anaphylaxis to statins), hypothyroidism, chronic kidney disease stage IIIb-IV; with history of atriovenostomy for renal dialysis in September 2021, history of multidrug-resistant UTI with Pseudomonas requiring treatment with Merrem, history of bilateral hydronephrosis, history of MRSA, history of tobacco abuse, history of COVID-pneumonia (2018), history of mild intermittent asthma, history of cervical cancer, history of atrophic vaginitis and recent history of admission here approximately 5 weeks ago from August 02, 2023 to August 07, 2023 for UTI secondary to multidrug-resistant Pseudomonas complicated by hydronephrosis with ureteral stents placed by urology which required PICC line placement for IV antibiotics who presents to [facility] complaining of low-grade fever with loose stools and dehydration. Ms. Delong reports her symptoms began approximately 1 day prior to admission with a mild temperature increased to 99.9 degrees Fahrenheit along with, chills malaise and loose stools. She reports a previous history of sepsis that was heralded by a mild temperature increase in a similar clinical presentation. She does admit to associated abdominal discomfort that is cramping in nature, intermittent in frequency and moderate in intensity with pain not made better or worse by anything. She denies associated cough, shortness of breath, chest discomfort, back pain, flank pain or focal neurologic deficits. In the ER she was diagnosed with suspected multidrug-resistant Pseudomonas UTI that is recurrent; confirmed by a positive UA complicated by loose stools with a white blood cell count of 20.8 without left shift with a creatinine of 2.88 consistent with acute kidney injury in the setting of chronic kidney disease stage IIIb-IV (with her last creatinine of 1.66 mg/dL and eGFR of 32 - now down to 17) along with her C. difficile PCR being negative this admission. She was then admitted to the general medical floor for ongoing care for a stay is expected to be greater than 48 hours. [facility] Medical History Acute diarrhea LULY (acute kidney injury) Asthma Dunbar's palsy Bilateral hydronephrosis Bladder disease Blood disorder Bruising Cancer Cardiology follow-up encounter Cervical cancer Chronic renal failure, stage 4 (severe) Dialysis patient Easy bruising Essential hypertension Former smoker Gout High anion gap metabolic acidosis History of biliary stent insertion History of cervical cancer History of Clostridium difficile infection History of COVID-19 History of irregular heartbeat History of renal disease Hx of cataract Hx of echocardiogram Hx of vertigo Hyperlipidemia Hypertension Hypokalemia Hyponatremia Kidney disease Leg cramps Lymphocytosis Mild intermittent asthma MRSA infection Near syncope Problem with dialysis access Sepsis Status post placement of implantable loop recorder (~03/29/20) Thyroid disease Urinary incontinence UTI (urinary tract infection) Wears dentures Home Medications albuterol sulfate 90 mcg/actuation aerosol inhaler (Ventolin HFA) 2 puff inhalation Q6H PRN Sob &/Or Wheezing 07/25/18 [History Last Taken 08/01/23] metoprolol tartrate 50 mg tablet 50 mg PO BID blood pressure 01/27/19 [History Last Taken 08/01/23] potassium chloride 20 mEq tablet,extended release(part/cryst) 20 meq PO DAILY supplement 09/01/20 [History Last Taken 08/01/23] amlodipine 2.5 mg tablet 2.5 mg PO DAILY BP #90 tabs 08/12/21 [Rx Last Taken 08/01/23] ipratropium bromide 42 mcg (0.06 %) nasal spray 2 spray intranasal DAILY allergie 11/23/21 [History Last Taken 08/01/23] pantoprazole 40 mg tablet,delayed release 40 mg PO DAILY GERD 03/27/23 [History Last Taken 08/01/23] Allergy/AdvReac Type Severity Reaction Status Date / Time pravastatin Allergy Severe Chest Verified 09/19/23 09:25 tightness procaine [From Novocain] Allergy Severe NEEDS Verified 09/19/23 09:25 FOLLOW-UP sulfamethoxazole Allergy Severe Shortness Verified 09/19/23 09:25 [From Bactrim] of breath trimethoprim [From Bactrim] Allergy Severe Shortness Verified 09/19/23 09:25 of breath Annyxpl-LDU-MaS Reductase Allergy Anaphylaxis Verified 09/19/23 09:25 Inhibitor clindamycin AdvReac Severe unsure of Verified 09/19/23 09:25 reaction methylprednisolone AdvReac Severe Pain in Verified 09/19/23 09:25 joints levofloxacin [From Levaquin] AdvReac UNSURE OF Verified 09/19/23 09:25 REACTION Family History Father , 32 yrs old CAD (coronary artery disease) History of coronary artery bypass surgery Mother Cancer Lung CA, Hx tobacco use. Surgical History History of arteriovenostomy for renal dialysis (~09/2021) History of cardiac catheterization (~01/08/18) History of cardiac catheterization History of cholecystectomy History of excision of mass History of hysterectomy History of loop recorder history of radium implant Hx of cystoscopy S/P arteriovenous (AV) fistula creation Social History household members: spouse and children number of children: 6 current occupational status: retired history of recent travel: No Smoking Status: Former smoker second hand exposure: No alcohol intake: never substance use type: does not use what type of physical activity do you participate in: walking saurabh/latter day: Non-Christian/Independent seatbelt use: always do you feel safe at home: Yes additional social history: - Fernando PALOMO ROS Narrative General: Did have low-grade fever HENT: Positive dry mucus membranes. Denies headache, denies stuffy nose, denies sore throat EYES: Denies changes in vision Resp: Denies cough, denies shortness of breath Cardiac: Denies chest pain GI: Mild intermittent abdominal discomfort with loose stools, denies vomiting : Denies changes in urination Extremity: Denies swelling Musculoskeletal: Feels somewhat generally weak and unwell Neuro: Denies any numbness/tingling Heme: Denies any bleeding or bruising Skin: Denies rashes Psychiatric: No complaints voiced Endocrine: No polyuria The rest of the 14 point ROS was negative except for positives in HPI. Vital Signs Vital Signs Vital Signs: 09/19/23 09:24 09/19/23 09:35 09/19/23 09:59 Temperature 97.3 F L Temperature Source Temporal Pulse Rate 99 Pulse Rate [Lying] 86 Pulse Rate [Sitting (for 1 minute prior to obtaining)] 89 Pulse Rate [Standing (for 1 minute prior to obtaining)] 93 Respiratory Rate 14 Respiratory Effort Normal Respiratory Pattern Normal Blood Pressure 116/79 Blood Pressure [Lying] 113/65 Blood Pressure [Sitting (for 1 minute prior to obtaining)] 101/79 Blood Pressure [Standing (for 1 minute prior to obtaining)] 101/73 Blood Pressure Mean 91 Blood Pressure Mean [Lying] 81 Blood Pressure Mean [Sitting (for 1 minute prior to obtaining)] 86 Blood Pressure Mean [Standing (for 1 minute prior to obtaining)] 82 Pulse Ox 98 Oxygen Delivery Method Room Air Weight Weight: 185 lb 9.6 oz Body Mass Index (BMI) 28.2 Physical Exam Const alert, oriented x3, no apparent distress and average body habitus General Appearance: cooperative HEENT normocephalic, head/scalp atraumatic and hearing grossly normal bilaterally HEENT Narrative: Dry mucous membranes and skin. Eyes PERRL, EOMs intact bilaterally and conjunctivae normal Neck no lymphadenopathy, supple, no JVD and no carotid bruits Resp normal respiratory effort, no retractions, no use of accessory muscles and clear to auscultation bilaterally Cardio regular rate, regular rhythm, S1 normal heart sound, S2 normal heart sound and no murmurs GI normal to inspection, nondistended, normoactive bowel sounds, soft to palpation, non-tender and non-distended Extremity normal to inspection, full ROM and no clubbing, cyanosis or edema Skin Skin Narrative: Skin is dry. Neuro oriented x3, CN's II-XII intact bilaterally, moves all extremities and no focal motor deficits Sensorium / Orientation: awake, alert, oriented to person, oriented to place and oriented to time Motor Exam: strength 5/5 throughout Psych affect normal Results Lab / Micro Data 09/19/23 10:15 09/19/23 10:15 Labs: Laboratory Results - last 24 hr 09/19/23 10:15: WBC 20.8 H, RBC 4.54, Hgb 14.3, Hct 43.7, MCV 96.3, MCH 31.5, MCHC 32.7, RDW Std Deviation 51.6 H, RDW Coeff of Dewey 14.6, Plt Count 442, MPV 10.2, Immature Gran % (Auto) 0.700, Neut % (Auto) 64.2, Lymph % (Auto) 28.9, [place] % (Auto) 5.5, Eos % (Auto) 0.3, Baso % (Auto) 0.4, Absolute Neuts (auto) 13.4 H, Absolute Lymphs (auto) 6.02 H, Nucleated RBC % 0, Differential Comment SCANNED, Sodium 134 L, Potassium 4.1, Chloride 104, Carbon Dioxide 20.0 L, Anion Gap 10, BUN 23 H, Creatinine 2.88 H, Estim Creat Clear Calc 18.07, Est GFR (MDRD) Af Amer 21 L, Est GFR (MDRD) Non-Af 17 L, BUN/Creatinine Ratio 8.0 L, Glucose 98, Calcium 8.4 L 09/19/23 11:30: Urine Color Yellow, Urine Clarity Cloudy, Urine pH 6.0, Ur Specific [place] 1.015, Urine Protein 100 H, Urine Glucose (UA) Normal, Urine Ketones Negative, Urine Occult Blood 150 H, Urine Nitrite Positive H, Urine Bilirubin Negative, Urine Urobilinogen Normal, Ur Leukocyte Esterase 500 H, Urine RBC 0 SEEN, Urine WBC >100 SEEN, Ur Squamous Epith Cells 0 SEEN, Urine Bacteria 0 SEEN, Urine Mucus 0 SEEN Micro: Microbiology 09/19/23 10:24 Stool C. difficile DNA Amplification - Final Assessment & Plan Assessment/Plan (1) Acute kidney injury superimposed on chronic kidney disease: (2) Acute dehydration: (3) Acute UTI: PLAN: Plan 1. Multidrug-resistant UTI with Pseudomonas; recurrent - Continue IV Merrem to cover MDR Pseudomonas and await final culture and sensitivity data. Give Tylenol prn for fever or pain. Patient only has 1 SIRS criteria positive on admission so no lactates or further sepsis workup was undertaken in the ER as her vitals are normal. 2. LULY on CKD stage IIIb-IV with a known history of HD complicating #1 - Continue gentle volume resuscitation with strict I's & O's and recheck BMP in the AM to ensure improvement. We will obtain nephrology consult in the AM if her creatinine has not improved. 3. Loose Stools with Dehydration compounding #1 & #2 - Stool PCR for Clostridium difficile A&B Toxin PCR negative this admission. Continue supportive care and monitor for improvement. 4. Recent admission here for MDR UTI from August 02, 2023 to August 07, 2023 requiring PICC line for IV antibiotics - Noted. 5. Essential Hypertension - Hold scheduled antihypertensives until volume status is corrected. 6. DVT prophylaxis - Lovenox 30 mg sq daily. Total Time: approximately 55 minutes.
[2023-09-19 13:50] VITALS: BP 106/64; PULSE 74; RESP 16; O2SAT 95
--- NOTE | 2023-09-19 14:38 | US_ITS ---
STUDY: RENAL ULTRASOUND - COMPLETE REASON FOR EXAM: Female, 73 years old. ARF on CKD TECHNIQUE: Ultrasound evaluation of the kidneys was performed with real-time and static alejo-scale imaging. COMPARISON: CT April 03, 2023. FINDINGS: RIGHT KIDNEY: Normal location of the right kidney, which is normal in size. The right kidney measures 9.4 cm cm. There is a normal cortex of the right kidney. The renal cortex measures 1.5 cm. There is 3.7 cm cyst. There are no right renal calculi. There is moderate hydronephrosis of the right kidney. DISTAL RIGHT URETER: There is non-visualization of the distal right ureter. There is no demonstrated right ureterovesical junction calculus. There is a visualized right ureteral jet. LEFT KIDNEY: Normal location of the left kidney, which is decreased in size. The left kidney measures 8.7 cm cm. There is a normal cortex of the left kidney. The renal cortex measures 1.5 cm. There is no left renal mass or cyst. There are no left renal calculi. There is moderate hydronephrosis of the left kidney. DISTAL LEFT URETER: There is non-visualization of the distal left ureter. There is no demonstrated left ureterovesical junction calculus. There is a visualized left ureteral jet. BLADDER: The urinary bladder is empty. There is no demonstrated mass within the urinary bladder. There are no demonstrated bladder calculi. US/Kidney and Bladder IMPRESSION: Bilateral hydronephrosis. Electronically Signed: Javan Grady MD at 22:38 EDT ,
[2023-09-19 14:40] VITALS: BMI 26.4
[2023-09-19 14:46] VITALS: BP 125/67; PULSE 85; RESP 16; TEMP 36.3; O2SAT 98
[2023-09-19] MEDS: 0.9% Normal Saline (1000mL) 1,000 ML 70 ML IV (15:00)
[2023-09-19 15:33] VITALS: BP 125/67; PULSE 85; RESP 16; TEMP 36.3; O2SAT 98
[2023-09-19] MEDS: Ensure Plus High Protein 120 ML LIQUID PO (16:42)
[2023-09-19 19:50] VITALS: BP 135/80; PULSE 94; RESP 16; TEMP 36.8; O2SAT 100
[2023-09-20] VITALS (7 sets, daily range): BP systolic 133–146; BP diastolic 71–77; PULSE 87–104; RESP 16–18; TEMP 36.6–36.8; O2SAT 95–100; BMI 26.9
--- NOTE | 2023-09-20 07:12 | PCM.PN.HOSP ---
Reason for Visit Reason for Visit: Diagnoses Dehydration (09/19/23) Acute kidney failure, unspecified (09/19/23) Chronic kidney disease, unspecified (09/19/23) Urinary tract infection, site not specified (09/19/23) Subjective Subjective Patient seen this AM. She is feeling much better today with good urinary output though she is incontinent. She has adequate fluid intake and a good appetite. She further explained that her PICC line used to give 14 days of IV antibiotics for her multidrug-resistant UTI also became infected causing the PICC line to have to be removed. We discussed that she will likely need another PICC line so that she can receive her IV antibiotics along with an ID consultation today for follow-up care. Objective Data Objective Data Vital Signs: Vital Signs Temp Pulse Resp BP Pulse Ox O2 Del Method 98.2 F 99 16 133/75 H 97 Room Air 09/20/23 03:00 09/20/23 03:00 09/20/23 03:00 09/20/23 03:00 09/20/23 03:00 09/20/23 03:00 Oxygen Delivery Method Room Air Weight: 176 lb 12.972 oz Body Mass Index (BMI) 26.9 Intake & Output: Intake and Output for Last 24 Hours 09/18/23 09/19/23 09/20/23 23:59 23:59 23:59 Intake Total 2043.67 / 2243.67 420 / 420 Output Total 220 / 220 Balance 2043.67 / 2123.67 200 / 200 Lab / Micro Data Attestation: I reviewed the patient's lab results. 09/20/23 06:15 09/20/23 06:15 Labs: Laboratory Results - last 24 hr 09/19/23 10:15: WBC 20.8 H, RBC 4.54, Hgb 14.3, Hct 43.7, MCV 96.3, MCH 31.5, MCHC 32.7, RDW Std Deviation 51.6 H, RDW Coeff of [place]wey 14.6, Plt Count 442, MPV 10.2, Immature Gran % (Auto) 0.700, Neut % (Auto) 64.2, Lymph % (Auto) 28.9, [place] % (Auto) 5.5, Eos % (Auto) 0.3, Baso % (Auto) 0.4, Absolute Neuts (auto) 13.4 H, Absolute Lymphs (auto) 6.02 H, Nucleated RBC % 0, Differential Comment SCANNED, Sodium 134 L, Potassium 4.1, Chloride 104, Carbon Dioxide 20.0 L, Anion Gap 10, BUN 23 H, Creatinine 2.88 H, Estim Creat Clear Calc 18.07, Est GFR (MDRD) Af Amer 21 L, Est GFR (MDRD) Non-Af 17 L, BUN/Creatinine Ratio 8.0 L, Glucose 98, Calcium 8.4 L 09/19/23 11:30: Urine Color Yellow, Urine Clarity Cloudy, Urine pH 6.0, Ur Specific [place] 1.015, Urine Protein 100 H, Urine Glucose (UA) Normal, Urine Ketones Negative, Urine Occult Blood 150 H, Urine Nitrite Positive H, Urine Bilirubin Negative, Urine Urobilinogen Normal, Ur Leukocyte Esterase 500 H, Urine RBC 0 SEEN, Urine WBC >100 SEEN, Ur Squamous Epith Cells 0 SEEN, Urine Bacteria 0 SEEN, Urine Mucus 0 SEEN Micro: Microbiology 09/19/23 10:24 Stool C. difficile DNA Amplification - Final Radiography Diagnostic Testing: Radiology Impression Renal Ultrasound 09/19/23 14:38 IMPRESSION: Bilateral hydronephrosis. Electronically Signed: Javan Grady MD at 22:38 EDT Reading Location ID and State: [facility] / [place] , Service support , Physical Exam Const alert, oriented x3, no apparent distress and average body habitus General Appearance: cooperative HEENT normocephalic, head/scalp atraumatic and hearing grossly normal bilaterally Eyes PERRL, EOMs intact bilaterally, conjunctivae normal and no scleral icterus Neck no lymphadenopathy, supple, no JVD and no carotid bruits Resp normal respiratory effort, normal air movement, no retractions, no use of accessory muscles and clear to auscultation bilaterally Cardio regular rate, regular rhythm, S1 normal heart sound, S2 normal heart sound and no murmurs GI normal to inspection, nondistended, normoactive bowel sounds, soft to palpation, non-tender and non-distended Extremity normal to inspection, full ROM, normal capillary refill, no joint enlargement and no clubbing, cyanosis or edema Skin no rashes or lesions noted Skin Narrative: Skin is dry. Neuro oriented x3, CN's II-XII intact bilaterally, moves all extremities and no focal motor deficits Sensorium / Orientation: awake, alert, oriented to person, oriented to place and oriented to time Motor Exam: strength 5/5 throughout Psych affect normal Assessment & Plan Assessment/Plan (1) Acute kidney injury superimposed on chronic kidney disease: (2) Acute dehydration: (3) Acute UTI: PLAN: Plan 1. Multidrug-resistant UTI with Pseudomonas; recurrent - Continue IV Merrem to cover MDR Pseudomonas and await final culture and sensitivity data. Give Tylenol prn for fever or pain. Patient only had 1 SIRS criteria positive on admission so no lactates or further sepsis workup was undertaken in the ER as her vitals were normal. Her WBC has decreased nicely with treatment. Finally, we will consult Dr. Goddard of [place] to see this patient in consultation later today as she will likely need a PICC to complete her current course of antibiotics. 2. LULY on CKD stage IIIb-IV with a known history of HD complicating #1 - Continue gentle volume resuscitation with strict I's & O's and recheck BMP again in the AM to ensure continuing improvement. Her creatine dropped from 2.88 mg/dL present on admission down to 2.46 mg/dL today with good UOP so nephrology consultation is deemed not to be necessary at this time. 3. Loose Stools with Dehydration compounding #1 & #2 - Stool PCR for Clostridium difficile A&B Toxin PCR negative this admission. Continue supportive care and monitor for improvement. 4. Recent admission here for MDR UTI from August 02, 2023 to August 07, 2023 requiring PICC line for IV antibiotics - Noted. 5. Essential Hypertension - Hold scheduled antihypertensives until volume status is corrected. He blood pressure has been well controlled. 6. DVT prophylaxis - Lovenox 30 mg sq daily with decreased renal function. Total Time: approximately 35 minutes. Charges/Coding Multi Select Codes Visit Charges Visit Charges: 67345 Subs Hosp L2
[2023-09-20 07:39] LABS: Absolute Lymphocyte Count 5.55 X10^3/uL (0.83-4.51); Absolute Neutrophil Count 7.3 X10^3/uL (2.0-7.7); Basophil# 0.05 X10^3/uL; Basophil% 0.4 % (0-1); Eosinophil# 0.21 X10^3/uL; Eosinophils% 1.5 % (0-5); Hematocrit 35.7 % (37-47); Hemoglobin 11.6 g/dL (12.0-15.0); Lymphocyte # 5.55 X10^3/ul (0.83-4.51); Lymphocyte % 39.5 % (19-41); Mean Corp Hgb Conc 32.5 g/dL (32-36); Mean Corpuscular Hgb 31.4 pg (27.0-32.0); Mean Corpuscular Volume 96.5 fL (81-99); Mean Platelet Vol. 10.7 fl (6.2-12.0); Monocyte# 0.85 X10^3/uL; Monocyte% 6.1 % (0-10); NRBC Flagged by Analyzer 0 % (0-5); Neutrophil % 51.9 % (47-70); POSITIVE DIFFERENTIAL YES; POSITIVE MORPHOLOGY YES; Platelet Count 298 K/mm3 (150-450); RBC Distribution Width CV 14.6 % (11.6-14.6); RBC Distribution Width SD 51.7 fl (35.1-43.9)
[2023-09-20 07:56] LABS: Differential Indicated SCAN CRITERIA MET
[2023-09-20 08:19] LABS: Anion Gap 6 (5-15); BUN 26 mg/dL (7-18); BUN/Creat Ratio 10.6 RATIO (10-20); Calcium,Total 7.6 mg/dL (8.5-10.1); Chloride 110 mmol/L (98-107); Creatinine, Serum 2.46 mg/dL (0.55-1.02); EST Glomerular Filtration Rate 21 mL/min (>60); Est Glom Filt Rate - Afr Amer 25 mL/min (>60); Estimated Creatinine Clearance 21.16 ml/min; Glucose 83 mg/dL (74-106); Phosphorus 3.9 mg/dL (2.5-4.9); Potassium 4.1 mmol/L (3.5-5.1); Sodium Level 136 mmol/L (136-145)
[2023-09-20] MEDS: Meropenem 1 GM in 0.9% Normal Saline (100mL MB+) 100 ML IV ×2 (09:32→21:31)
[2023-09-20] MEDS: Enoxaparin 30 MG/0.3 ML Syringe SC (10:01)
--- NOTE | 2023-09-20 10:10 | CASEMGMT ---
ANISH KIRKPATRICK Assessment: Face to Face with pt for initial transition planning/care coordination assessment. ANISH KIRKPATRICK introduced self and role at [facility], pt voices understanding and consents to assessment. Pt is A&O x4 and answers all questions appropriately at this time. Pt lying in bed in no distress. Care providers, pharmacy, and demographics verified/updated. Admitting Dx: UTI PCP:Ricky Specialists:Byron, nephro; Em, uro; Stephen, onc; Nitza, ID; HARPERG, cardio [facility]erred [facility]acy: [facility] Insurance: [employer] [facility] Prescription Benefit: yes LNOK: Maxine Delong, dtr; Liudmila Delong, granddtr Living Arrangements: Pt lives with dtr and 2 grandchildren in a two story home with 3 steps to enter with a rail. Pt reports she is I in ADL's at home and denies concerns. Transportation: Pt family lives within 2 miles of her. They transport her to medical appts as needed. DME:shower chair, grab bars in the bathroom HHC/SNF: [facility] HHC, denies SNF stays Pt states no concerns with going home at time of dc. Pt states she has had IV atb at home in the past and it went well. She states she used [employer] for the infusion company. Pt states should she need IV atb again, she would prefer [facility] as well as [facility] again. 6 clicks =24, no therapy ordered. Pt states no further concerns/needs. CM to follow. Advised pt to ask CM if any further question/concerns/needs arise, voices understanding. Pt Goal: Home Plan: Home, follow for IV atb
--- NOTE | 2023-09-20 10:41 | PCM.CONS.GEN ---
Assessment & Plan Assessment/Plan (1) Complicated urinary tract infection: PLAN: Ucx and bcx pending. On empiric meropenem. Will consult urology given hydronephrosis seen on imaging and bilat ureteral stents placed 07/2023. Ucx grew PsA 08/02/23. Will hold off on picc pending further cx data. Will follow, thank you, d/w nursing HPI Consult Data Date of Consult: 09/20/23 HPI Narrative Reason for Consultation: uti HPI Narrative: TODD HERRERA, is a 73 F with CKD, recurrent uti, bilateral ureteral stents placed during admit a month ago by Dr. Strickland, presented with 1-2 days of progressive fever, epigastric abd pain and nausea. No changes in urine or dysuria. No cough or SOB. Admitted here on meropenem. Full ROS performed and neg except as noted above. [facility] Medical History Acute diarrhea LULY (acute kidney injury) Asthma Dunbar's palsy Bilateral hydronephrosis Bladder disease Blood disorder Bruising Cancer Cardiology follow-up encounter Cervical cancer Chronic renal failure, stage 4 (severe) Dialysis patient Easy bruising Essential hypertension Former smoker Gout High anion gap metabolic acidosis History of biliary stent insertion History of cervical cancer History of Clostridium difficile infection History of COVID-19 History of irregular heartbeat History of renal disease Hx of cataract Hx of echocardiogram Hx of vertigo Hyperlipidemia Hypertension Hypokalemia Hyponatremia Kidney disease Leg cramps Lymphocytosis Mild intermittent asthma MRSA infection Near syncope Problem with dialysis access Sepsis Status post placement of implantable loop recorder (~03/29/20) Thyroid disease Urinary incontinence UTI (urinary tract infection) Wears dentures Home Medications albuterol sulfate 90 mcg/actuation aerosol inhaler (Ventolin HFA) 2 puff inhalation Q6H PRN Sob &/Or Wheezing 07/25/18 [History Last Taken 08/01/23] metoprolol tartrate 50 mg tablet 50 mg PO BID blood pressure 01/27/19 [History Last Taken 08/01/23] potassium chloride 20 mEq tablet,extended release(part/cryst) 20 meq PO DAILY supplement 09/01/20 [History Last Taken 08/01/23] amlodipine 2.5 mg tablet 2.5 mg PO DAILY BP #90 tabs 08/12/21 [Rx Last Taken 08/01/23] ipratropium bromide 42 mcg (0.06 %) nasal spray 2 spray intranasal DAILY allergie 11/23/21 [History Last Taken 08/01/23] pantoprazole 40 mg tablet,delayed release 40 mg PO DAILY GERD 03/27/23 [History Last Taken 08/01/23] Allergy/AdvReac Type Severity Reaction Status Date / Time pravastatin Allergy Severe Chest Verified 09/19/23 09:25 tightness procaine [From Novocain] Allergy Severe NEEDS Verified 09/19/23 09:25 FOLLOW-UP sulfamethoxazole Allergy Severe Shortness Verified 09/19/23 09:25 [From Bactrim] of breath trimethoprim [From Bactrim] Allergy Severe Shortness Verified 09/19/23 09:25 of breath [id number] Reductase Allergy Anaphylaxis Verified 09/19/23 09:25 Inhibitor clindamycin AdvReac Severe unsure of Verified 09/19/23 09:25 reaction methylprednisolone AdvReac Severe Pain in Verified 09/19/23 09:25 joints levofloxacin [From Levaquin] AdvReac UNSURE OF Verified 09/19/23 09:25 REACTION Family History Father , 32 yrs old CAD (coronary artery disease) History of coronary artery bypass surgery Mother Cancer Lung CA, Hx tobacco use. Surgical History History of arteriovenostomy for renal dialysis (~09/2021) History of cardiac catheterization (~01/08/18) History of cardiac catheterization History of cholecystectomy History of excision of mass History of hysterectomy History of loop recorder history of radium implant Hx of cystoscopy S/P arteriovenous (AV) fistula creation Social History household members: spouse and children number of children: 6 current occupational status: retired history of recent travel: No Smoking Status: Former smoker second hand exposure: No alcohol intake: never substance use type: does not use what type of physical activity do you participate in: walking saurabh/zoroastrian: Non-Religious/Independent seatbelt use: always do you feel safe at home: Yes additional social history: - Fernando Physical Exam Const alert, oriented x3 and no apparent distress General Appearance: cooperative HEENT normocephalic and head/scalp atraumatic Eyes PERRL and EOMs intact bilaterally Neck supple and No nodes Resp normal air movement and clear to auscultation bilaterally Cardio regular rate and regular rhythm GI soft to palpation, non-tender and non-distended Extremity General Extremity: Negative for edema Skin no rashes or lesions noted Neuro CN's II-XII intact bilaterally Lab / Micro Data Attestation: I reviewed the patient's lab results. 09/20/23 06:15 09/20/23 06:15 Labs: Laboratory Results - last 24 hr 09/19/23 10:15: Differential Comment SCANNED, Sodium 134 L, Potassium 4.1, Chloride 104, Carbon Dioxide 20.0 L, Anion Gap 10, BUN 23 H, Creatinine 2.88 H, Estim Creat Clear Calc 18.07, Est GFR (MDRD) Af Amer 21 L, Est GFR (MDRD) Non-Af 17 L, BUN/Creatinine Ratio 8.0 L, Glucose 98, Calcium 8.4 L 09/19/23 11:30: Urine Color Yellow, Urine Clarity Cloudy, Urine pH 6.0, Ur Specific [place] 1.015, Urine Protein 100 H, Urine Glucose (UA) Normal, Urine Ketones Negative, Urine Occult Blood 150 H, Urine Nitrite Positive H, Urine Bilirubin Negative, Urine Urobilinogen Normal, Ur Leukocyte Esterase 500 H, Urine RBC 0 SEEN, Urine WBC >100 SEEN, Ur Squamous Epith Cells 0 SEEN, Urine Bacteria 0 SEEN, Urine Mucus 0 SEEN 09/20/23 06:15: WBC 14.0 H, RBC 3.70 L, Hgb 11.6 L, Hct 35.7 L, MCV 96.5, MCH 31.4, MCHC 32.5, RDW Std Deviation 51.7 H, RDW Coeff of [place] 14.6, Plt Count 298, MPV 10.7, Immature Gran % (Auto) 0.600, Neut % (Auto) 51.9, Lymph % (Auto) 39.5, [place] % (Auto) 6.1, Eos % (Auto) 1.5, Baso % (Auto) 0.4, Absolute Neuts (auto) 7.3, Absolute Lymphs (auto) 5.55 H, Nucleated RBC % 0, Differential Comment COMMENT, Sodium 136, Potassium 4.1, Chloride 110 H, Carbon Dioxide 20.0 L, Anion Gap 6, BUN 26 H, Creatinine 2.46 H, Estim Creat Clear Calc 21.16, Est GFR (MDRD) Af Amer 25 L, Est GFR (MDRD) Non-Af 21 L, BUN/Creatinine Ratio 10.6, Glucose 83, Calcium 7.6 L, Phosphorus 3.9 Micro: Microbiology 09/19/23 11:30 Urine, Clean Catch Urine Culture - Preliminary GNR lactose toe former stitchdowns GNR lactose toe former stitchdowns#2 09/19/23 10:24 Stool C. difficile DNA Amplification - Final Radiology Impression Renal Ultrasound 09/19/23 14:38 IMPRESSION: Bilateral hydronephrosis. Electronically Signed: Javan Grady MD at 22:38 EDT ,
[2023-09-20] MEDS: 0.9% Saline Lock 10 ML Syringe IV (21:32)
[2023-09-20] MEDS: Metoprolol Tartrate 50 MG Tablet PO (22:27)
[2023-09-21] VITALS (9 sets, daily range): BP systolic 134–141; BP diastolic 72–82; PULSE 85–99; RESP 16; TEMP 36.6–36.9; O2SAT 95–99; BMI 26.8
[2023-09-21] MEDS: Ipratropium Bromide 0.06% NASAL SPRAY 2 SPRAY NASAL (08:03)
[2023-09-21] MEDS: Metoprolol Tartrate 50 MG Tablet PO ×2 (08:06→20:33)
[2023-09-21] MEDS: Pantoprazole Sodium 40 MG Tablet PO (08:06)
[2023-09-21] MEDS: Enoxaparin 30 MG/0.3 ML Syringe SC (08:07)
[2023-09-21] MEDS: amLODIPine 2.5 MG Tablet PO (08:07)
--- NOTE | 2023-09-21 08:19 | CON.PCM.UR_ITS ---
HPI Consult Data Date of Consult: 09/21/23 HPI Narrative Reason for Consultation: recurrent UTIs, stents HPI Narrative: TODD HERRERA, is a 73 F who presents to the hospital with a UtI, chronically infected also has chronic stents stents were just changed about 6 weeks ago, had an u/s done, may need to repeat CT scan to check position of stent. He Creatinine is up and not baseline, monitor renal function and recently cr improving. will Follow. [facility] Medical History Acute diarrhea LULY (acute kidney injury) Asthma Dunbar's palsy Bilateral hydronephrosis Bladder disease Blood disorder Bruising Cancer Cardiology follow-up encounter Cervical cancer Chronic renal failure, stage 4 (severe) Dialysis patient Easy bruising Essential hypertension Former smoker Gout High anion gap metabolic acidosis History of biliary stent insertion History of cervical cancer History of Clostridium difficile infection History of COVID-19 History of irregular heartbeat History of renal disease Hx of cataract Hx of echocardiogram Hx of vertigo Hyperlipidemia Hypertension Hypokalemia Hyponatremia Kidney disease Leg cramps Lymphocytosis Mild intermittent asthma MRSA infection Near syncope Problem with dialysis access Sepsis Status post placement of implantable loop recorder (~03/29/20) Thyroid disease Urinary incontinence UTI (urinary tract infection) Wears dentures Home Medications albuterol sulfate 90 mcg/actuation aerosol inhaler (Ventolin HFA) 2 puff inhalation Q6H PRN Sob &/Or Wheezing 07/25/18 [History Last Taken 08/01/23] metoprolol tartrate 50 mg tablet 50 mg PO BID blood pressure 01/27/19 [History Last Taken 08/01/23] potassium chloride 20 mEq tablet,extended release(part/cryst) 20 meq PO DAILY supplement 09/01/20 [History Last Taken 08/01/23] amlodipine 2.5 mg tablet 2.5 mg PO DAILY BP #90 tabs 08/12/21 [Rx Last Taken 08/01/23] ipratropium bromide 42 mcg (0.06 %) nasal spray 2 spray intranasal DAILY allergie 11/23/21 [History Last Taken 08/01/23] pantoprazole 40 mg tablet,delayed release 40 mg PO DAILY GERD 03/27/23 [History Last Taken 08/01/23] Allergy/AdvReac Type Severity Reaction Status Date / Time pravastatin Allergy Severe Chest Verified 09/19/23 09:25 tightness procaine [From Novocain] Allergy Severe NEEDS Verified 09/19/23 09:25 FOLLOW-UP sulfamethoxazole Allergy Severe Shortness Verified 09/19/23 09:25 [From Bactrim] of breath trimethoprim [From Bactrim] Allergy Severe Shortness Verified 09/19/23 09:25 of breath [id number] Reductase Allergy Anaphylaxis Verified 09/19/23 09:25 Inhibitor clindamycin AdvReac Severe unsure of Verified 09/19/23 09:25 reaction methylprednisolone AdvReac Severe Pain in Verified 09/19/23 09:25 joints levofloxacin [From Levaquin] AdvReac UNSURE OF Verified 09/19/23 09:25 REACTION Family History Father , 32 yrs old CAD (coronary artery disease) History of coronary artery bypass surgery Mother Cancer Lung CA, Hx tobacco use. Surgical History History of arteriovenostomy for renal dialysis (~09/2021) History of cardiac catheterization (~01/08/18) History of cardiac catheterization History of cholecystectomy History of excision of mass History of hysterectomy History of loop recorder history of radium implant Hx of cystoscopy S/P arteriovenous (AV) fistula creation Social History household members: spouse and children number of children: 6 current occupational status: retired history of recent travel: No Smoking Status: Former smoker second hand exposure: No alcohol intake: never substance use type: does not use what type of physical activity do you participate in: walking saurabh/anglican: Non-Mosque/Independent seatbelt use: always do you feel safe at home: Yes additional social history: - Fernando Lab / Micro Data 09/20/23 06:15 09/20/23 06:15 Labs: Laboratory Results - last 24 hr 09/20/23 06:15: Differential Comment COMMENT, Sodium 136, Potassium 4.1, Chloride 110 H, Carbon Dioxide 20.0 L, Anion Gap 6, BUN 26 H, Creatinine 2.46 H, Estim Creat Clear Calc 21.16, Est GFR (MDRD) Af Amer 25 L, Est GFR (MDRD) Non-Af 21 L, BUN/Creatinine Ratio 10.6, Glucose 83, Calcium 7.6 L, Phosphorus 3.9 Micro: Microbiology 09/19/23 11:30 Urine, Clean Catch Urine Culture - Final Klebsiella pneumoniae sp pneum
[2023-09-21] MEDS: Meropenem 1 GM in 0.9% Normal Saline (100mL MB+) 100 ML IV ×2 (10:24→20:33)
[2023-09-21] MEDS: 0.9% Saline Lock 10 ML Syringe IV ×2 (10:29→20:33)
--- NOTE | 2023-09-21 10:58 | CT_ITS ---
STUDY: CT ABDOMEN AND PELVIS WITHOUT CONTRAST REASON FOR EXAM: Female, 73 years old. Recurrent uti RADIATION DOSAGE (If Supplied By Facility): CTDIvol = ( 9.32 ) mGy, DLP = ( 440.08 ) mGycm TECHNIQUE: Transaxial images were obtained from the dome of the diaphragm to the symphysis pubis without oral contrast, and without intravenous contrast. Sagittal and coronal images were reconstructed. Individualized dose optimization techniques were used for this CT. COMPARISON: Comparison is made with prior study dated August 02, 2023. FINDINGS: The visualized lung bases are unremarkable. Coronary artery calcification. Normal liver. The patient is status post cholecystectomy. Normal spleen. Normal pancreas. Normal bilateral adrenal glands. Right sided double-J stent catheter. Moderate degree of right hydronephrosis and right hydroureter. This is essentially unchanged. Right perinephric stranding. There is evidence of a 3.9 some air cyst in the inferior lateral aspect of the right kidney. Left double-J stent catheter with evidence of left hydronephrosis and mild hydroureter. Normal visualized stomach. Normal small intestine. Normal colon. The appendix is visualized and appears normal. There is diffuse atherosclerotic calcification of the abdominal aorta and its major visceral branches, without a demonstrated aneurysm. Normal inferior vena cava. Normal retroperitoneum. Mild degree of diffuse bladder wall thickening. There is absence of the uterus consistent with a prior hysterectomy. There are calcified injection granulomas in the buttocks bilaterally. Normal osseous structures. CT/Abdomen/Pelvis without Cont IMPRESSION: Stable appearance of the bilateral double-J stent catheters with residual left hydronephrosis and moderate degree of right hydronephrosis and hydroureter. Right renal cyst. Stable thickening of the urinary bladder wall. Electronically Signed: Ike Colón MD at 12:52 EDT ,
--- NOTE | 2023-09-21 12:23 | PCM.PN.ID ---
Physical Exam Narrative Feeling better, no fever, no abd pain Const alert and no apparent distress HEENT normocephalic Resp normal air movement and clear to auscultation bilaterally Cardio regular rate and regular rhythm GI soft to palpation, non-tender and non-distended Skin no rashes or lesions noted ID ID: Route of nutrition/ use of supplements: [] Nutritional Intake: [] IV Site: [] Roberts Catheter: [] Assessment & Plan Assessment/Plan (1) Complicated urinary tract infection: PLAN: Ucx with klebs. Bcx neg so far. On empiric meropenem. Seen by urology here. Had bilat ureteral stents placed 07/2023. Ucx grew PsA 08/02/23. Will order CT to eval stents. Still with LLUY. Plan at discharge if she continues to improve and no issues with stents would be po keflex, dose adjusted for GFR, for 10 more days. Will follow
--- NOTE | 2023-09-21 15:21 | PN_ITS ---
Subjective Subjective Patient seen and examined. She feels well today. She has no complaints. She denies any fever or chills, palpitations, dizziness, nausea or vomiting or any other symptoms. Review of systems otherwise negative. Her fever and diarrhea have resolved. Objective Data Objective Data Vital Signs: Vital Signs Temp Pulse Resp BP Pulse Ox O2 Del Method 97.9 F 93 16 141/72 H 96 Room Air 09/21/23 07:56 09/21/23 08:06 09/21/23 07:56 09/21/23 08:06 09/21/23 07:56 09/21/23 07:56 Oxygen Delivery Method Room Air Weight: 176 lb 12.972 oz Body Mass Index (BMI) 26.8 Intake & Output: Intake and Output for Last 24 Hours 09/19/23 09/20/23 09/21/23 23:59 23:59 23:59 Intake Total 2043.67 / 2243.67 1686.33 / 2186.33 1100 / 1100 Output Total 220 / 620 400 / 400 Balance 2043.67 / 2123.67 1466.33 / 1566.33 700 / 700 Lab / Micro Data 09/20/23 06:15 09/20/23 06:15 Micro: Microbiology 09/19/23 11:30 Urine, Clean Catch Urine Culture - Final Klebsiella pneumoniae sp pneum 09/19/23 10:24 Stool C. difficile DNA Amplification - Final Radiography Diagnostic Testing: Radiology Impression Abdomen/Pelvis CT 09/21/23 10:58 IMPRESSION: Stable appearance of the bilateral double-J stent catheters with residual left hydronephrosis and moderate degree of right hydronephrosis and hydroureter. Right renal cyst. Stable thickening of the urinary bladder wall. Electronically Signed: Ike Colón MD at 12:52 EDT , Physical Exam Const alert, oriented x3 and no apparent distress General Appearance: cooperative HEENT normocephalic, head/scalp atraumatic, moist oral mucous membranes and oropharynx normal Eyes PERRL and EOMs intact bilaterally Neck no lymphadenopathy and supple Lymph Lymphatic: no lymphadenopathy noted and no lymphedema noted Resp normal respiratory effort, normal air movement and clear to auscultation bilaterally Cardio regular rate, regular rhythm, S1 normal heart sound, S2 normal heart sound and no murmurs GI normal to inspection, nondistended, normoactive bowel sounds, soft to palpation, non-tender and non-distended Extremity normal capillary refill, no clubbing, cyanosis or edema and no calf tenderness General Extremity: no tenderness to palpation of joints or extremities Skin General Skin Exam: no breakdown Neuro CN's II-XII intact bilaterally, no focal motor deficits, no sensory deficits noted and deep tendon reflexes 2+ bilaterally Motor Exam: strength 5/5 throughout Psych thought process normal and cooperative Appearance: appropriate Assessment & Plan Assessment/Plan (1) Acute kidney injury superimposed on chronic kidney disease: (2) Leukocytosis: (3) Pyuria: PLAN: Plan #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 * ID and urology on board. Urine cultures growing Klebsiella * Had bilateral stents placed by urology. Urology consulted to see if stents can be removed. * Per ID if patient continues to improve and no issues with stents, to be switched to p.o. Keflex, dose adjusted for GFR for 10 more days. * Await urology recommendations. #LULY on CKD stage IIIb: * Creatinine is 2.46. Was 2.88 yesterday. His baseline seems to be around 2. Continue gentle hydration and monitor. #Diarrhea: C. difficile negative. Improving. Will monitor. #Benign essential hypertension BP meds held due to dehydration on admission. Will resume amlodipine DVT prophylaxis: Lovenox, renally dosed Charges/Coding Visit Charges Inpatient E&M: 84204 Subs Hosp L2
--- NOTE | 2023-09-21 15:37 | CASEMGMT ---
Spoke to ID, pt will dc on po atb when medically ready.
[2023-09-21 16:46] LABS: Absolute Lymphocyte Count 4.72 X10^3/uL (0.83-4.51); Absolute Neutrophil Count 6.1 X10^3/uL (2.0-7.7); Basophil# 0.06 X10^3/uL; Basophil% 0.5 % (0-1); Eosinophil# 0.23 X10^3/uL; Eosinophils% 1.9 % (0-5); Hematocrit 37.7 % (37-47); Lymphocyte # 4.72 X10^3/ul (0.83-4.51); Lymphocyte % 39.6 % (19-41); Mean Corp Hgb Conc 31.8 g/dL (32-36); Mean Corpuscular Hgb 31.3 pg (27.0-32.0); Mean Corpuscular Volume 98.4 fL (81-99); Mean Platelet Vol. 10.1 fl (6.2-12.0); Monocyte# 0.73 X10^3/uL; Monocyte% 6.1 % (0-10); NRBC Flagged by Analyzer 0 % (0-5); Neutrophil # 6.07 X10^3/uL (2.7-7.7); Neutrophil % 51.1 % (47-70); Platelet Count 381 K/mm3 (150-450); RBC Distribution Width CV 14.6 % (11.6-14.6); RBC Distribution Width SD 52.6 fl (35.1-43.9); Red Blood Count 3.83 M/mm3 (4.2-5.4); White Blood Count 11.9 K/mm3 (4.4-11.0)
[2023-09-21 17:41] LABS: Anion Gap 9 (5-15); BUN 19 mg/dL (7-18); BUN/Creat Ratio 8.8 RATIO (10-20); Chloride 110 mmol/L (98-107); Creatinine, Serum 2.17 mg/dL (0.55-1.02); EST Glomerular Filtration Rate 24 mL/min (>60); Est Glom Filt Rate - Afr Amer 29 mL/min (>60); Estimated Creatinine Clearance 23.99 ml/min; Glucose 85 mg/dL (74-106); Potassium 3.2 mmol/L (3.5-5.1); Sodium Level 142 mmol/L (136-145)
[2023-09-22 01:51] VITALS: BMI 26.7
[2023-09-22 05:34] VITALS: BP 132/69; PULSE 92; RESP 16; TEMP 36.2; O2SAT 97
[2023-09-22 06:47] LABS: Absolute Neutrophil Count 6.2 X10^3/uL (2.0-7.7); Basophil# 0.06 X10^3/uL; Basophil% 0.5 % (0-1); Eosinophil# 0.25 X10^3/uL; Hematocrit 37.7 % (37-47); Hemoglobin 12.1 g/dL (12.0-15.0); Lymphocyte % 40.4 % (19-41); Mean Corp Hgb Conc 32.1 g/dL (32-36); Mean Corpuscular Hgb 31.4 pg (27.0-32.0); Mean Corpuscular Volume 97.9 fL (81-99); Mean Platelet Vol. 10.6 fl (6.2-12.0); Monocyte# 0.95 X10^3/uL; Monocyte% 7.5 % (0-10); NRBC Flagged by Analyzer 0 % (0-5); Neutrophil # 6.17 X10^3/uL (2.7-7.7); Neutrophil % 48.9 % (47-70); POSITIVE DIFFERENTIAL YES; Platelet Count 364 K/mm3 (150-450); RBC Distribution Width CV 14.6 % (11.6-14.6); RBC Distribution Width SD 52.6 fl (35.1-43.9); Red Blood Count 3.85 M/mm3 (4.2-5.4); White Blood Count 12.6 K/mm3 (4.4-11.0)
[2023-09-22 07:05] LABS: Anion Gap 9 (5-15); BUN 17 mg/dL (7-18); BUN/Creat Ratio 8.3 RATIO (10-20); Calcium,Total 8.1 mg/dL (8.5-10.1); Chloride 110 mmol/L (98-107); Creatinine, Serum 2.05 mg/dL (0.55-1.02); EST Glomerular Filtration Rate 25 mL/min (>60); Est Glom Filt Rate - Afr Amer 31 mL/min (>60); Estimated Creatinine Clearance 25.39 ml/min; Glucose 88 mg/dL (74-106); Potassium 3.3 mmol/L (3.5-5.1); Sodium Level 142 mmol/L (136-145)
[2023-09-22 07:06] LABS: Differential Indicated SCAN CRITERIA MET
--- NOTE | 2023-09-22 07:32 | PCM.PN.HOSP ---
Reason for Visit Reason for Visit: Diagnoses Elevated white blood cell count, unspecified (09/19/23) Dehydration (09/19/23) Acute kidney failure, unspecified (09/19/23) Chronic kidney disease, unspecified (09/19/23) Urinary tract infection, site not specified (09/19/23) Pyuria (09/19/23) Subjective Subjective Feels well. Objective Data Objective Data Vital Signs: Vital Signs Temp Pulse Resp BP Pulse Ox O2 Del Method 36.2 C L 92 16 132/69 H 97 Room Air 09/22/23 05:34 09/22/23 05:34 09/22/23 05:34 09/22/23 05:34 09/22/23 05:34 09/22/23 07:05 Oxygen Delivery Method Room Air Weight: 80.1 kg Body Mass Index (BMI) 26.7 Intake & Output: Intake and Output for Last 24 Hours 09/20/23 09/21/23 09/22/23 23:59 23:59 23:59 Intake Total 1686.33 / 2186.33 1340 / 1340 120 / 120 Output Total 220 / 620 400 / 400 500 / 500 Balance 1466.33 / 1566.33 940 / 940 -380 / -380 Lab / Micro Data 09/22/23 05:15 09/22/23 05:15 Labs: Laboratory Results - last 24 hr 09/21/23 16:13: WBC 11.9 H, RBC 3.83 L, Hgb 12.0, Hct 37.7, MCV 98.4, MCH 31.3, MCHC 31.8 L, RDW Std Deviation 52.6 H, RDW Coeff of [place]wey 14.6, Plt Count 381, MPV 10.1, Immature Gran % (Auto) 0.800, Neut % (Auto) 51.1, Lymph % (Auto) 39.6, [place] % (Auto) 6.1, Eos % (Auto) 1.9, Baso % (Auto) 0.5, Absolute Neuts (auto) 6.1, Absolute Lymphs (auto) 4.72 H, Nucleated RBC % 0, Sodium 142, Potassium 3.2 L, Chloride 110 H, Carbon Dioxide 23.0, Anion Gap 9, BUN 19 H, Creatinine 2.17 H, Estim Creat Clear Calc 23.99, Est GFR (MDRD) Af Amer 29 L, Est GFR (MDRD) Non-Af 24 L, BUN/Creatinine Ratio 8.8 L, Glucose 85, Calcium 8.0 L 09/22/23 05:15: WBC 12.6 H, RBC 3.85 L, Hgb 12.1, Hct 37.7, MCV 97.9, MCH 31.4, MCHC 32.1, RDW Std Deviation 52.6 H, RDW Coeff of [place] 14.6, Plt Count 364, MPV 10.6, Immature Gran % (Auto) 0.700, Neut % (Auto) 48.9, Lymph % (Auto) 40.4, [place] % (Auto) 7.5, Eos % (Auto) 2.0, Baso % (Auto) 0.5, Absolute Neuts (auto) 6.2, Absolute Lymphs (auto) 5.10 H, Nucleated RBC % 0, Sodium 142, Potassium 3.3 L, Chloride 110 H, Carbon Dioxide 23.0, Anion Gap 9, BUN 17, Creatinine 2.05 H, Estim Creat Clear Calc 25.39, Est GFR (MDRD) Af Amer 31 L, Est GFR (MDRD) Non-Af 25 L, BUN/Creatinine Ratio 8.3 L, Glucose 88, Calcium 8.1 L Micro: Microbiology 09/19/23 11:30 Urine, Clean Catch Urine Culture - Final Klebsiella pneumoniae sp pneum 09/19/23 10:24 Stool C. difficile DNA Amplification - Final Radiography Diagnostic Testing: Radiology Impression Abdomen/Pelvis CT 09/21/23 10:58 IMPRESSION: Stable appearance of the bilateral double-J stent catheters with residual left hydronephrosis and moderate degree of right hydronephrosis and hydroureter. Right renal cyst. Stable thickening of the urinary bladder wall. Electronically Signed: Ike Colón MD at 12:52 EDT , Physical Exam Const alert and no apparent distress HEENT head/scalp atraumatic and moist oral mucous membranes Resp normal respiratory effort, no retractions and no use of accessory muscles Assessment & Plan Assessment/Plan (1) Acute kidney injury superimposed on chronic kidney disease: PLAN: Improving. Baseline range from 1.6 to 2. Monitor (2) Acute UTI: PLAN: Complicated. 2/2 Klebsiella pneumoniae. Per ID, can be treated for [address] showed residual left hydronephrosis and moderate right hydronephrosis. Bilateral stents in place. Stable thickening of urinary bladder wall. following, Cephalexin for 10 days. PLAN: Plan Chronic conditions: Benign essential hypertension BP meds held due to dehydration on admission. Will resume amlodipine CKD IIIb: as above. DVT prophylaxis: Lovenox, renally dosed
[2023-09-22 07:44] VITALS: BP 140/71; PULSE 97; RESP 16; TEMP 37; O2SAT 95
--- NOTE | 2023-09-22 09:04 | PN.URO_ITS ---
Subjective Subjective cr improvingto 2.05 Ct scan stent in proper place, some residual hydro but chronic. will follow Objective Data Objective Data Vital Signs: Vital Signs Temp Pulse Resp BP Pulse Ox O2 Del Method 98.6 F 97 16 140/71 H 95 Room Air 09/22/23 07:44 09/22/23 07:44 09/22/23 07:44 09/22/23 07:44 09/22/23 07:44 09/22/23 07:44 Oxygen Delivery Method Room Air Weight: 80.1 kg Body Mass Index (BMI) 26.7 Intake & Output: Intake and Output for Last 24 Hours 09/20/23 09/21/23 09/22/23 23:59 23:59 23:59 Intake Total 1686.33 / 2186.33 1340 / 1340 120 / 120 Output Total 220 / 620 400 / 400 500 / 500 Balance 1466.33 / 1566.33 940 / 940 -380 / -380 Lab / Micro Data 09/22/23 05:15 09/22/23 05:15 Labs: Laboratory Results - last 24 hr 09/21/23 16:13: WBC 11.9 H, RBC 3.83 L, Hgb 12.0, Hct 37.7, MCV 98.4, MCH 31.3, MCHC 31.8 L, RDW Std Deviation 52.6 H, RDW Coeff of Dewey 14.6, Plt Count 381, MPV 10.1, Immature Gran % (Auto) 0.800, Neut % (Auto) 51.1, Lymph % (Auto) 39.6, [place] % (Auto) 6.1, Eos % (Auto) 1.9, Baso % (Auto) 0.5, Absolute Neuts (auto) 6.1, Absolute Lymphs (auto) 4.72 H, Nucleated RBC % 0, Sodium 142, Potassium 3.2 L, Chloride 110 H, Carbon Dioxide 23.0, Anion Gap 9, BUN 19 H, Creatinine 2.17 H , Estim Creat Clear Calc 23.99, Est GFR (MDRD) Af Amer 29 L, Est GFR (MDRD) Non- Af 24 L, BUN/Creatinine Ratio 8.8 L, Glucose 85, Calcium 8.0 L 09/22/23 05:15: WBC 12.6 H, RBC 3.85 L, Hgb 12.1, Hct 37.7, MCV 97.9, MCH 31.4, MCHC 32.1, RDW Std Deviation 52.6 H, RDW Coeff of Dewey 14.6, Plt Count 364, MPV 10.6, Immature Gran % (Auto) 0.700, Neut % (Auto) 48.9, Lymph % (Auto) 40.4, [place] % (Auto) 7.5, Eos % (Auto) 2.0, Baso % (Auto) 0.5, Absolute Neuts (auto) 6.2, Absolute Lymphs (auto) 5.10 H, Nucleated RBC % 0, Sodium 142, Potassium 3.3 L, Chloride 110 H, Carbon Dioxide 23.0, Anion Gap 9, BUN 17, Creatinine 2.05 H, Estim Creat Clear Calc 25.39, Est GFR (MDRD) Af Amer 31 L, Est GFR (MDRD) Non-Af 25 L, BUN/Creatinine Ratio 8.3 L, Glucose 88, Calcium 8.1 L Micro: Microbiology 09/19/23 11:30 Urine, Clean Catch Urine Culture - Final Klebsiella pneumoniae sp pneum 09/19/23 10:24 Stool C. difficile DNA Amplification - Final Radiography Diagnostic Testing: Radiology Impression Abdomen/Pelvis CT 09/21/23 10:58 IMPRESSION: Stable appearance of the bilateral double-J stent catheters with residual left hydronephrosis and moderate degree of right hydronephrosis and hydroureter. Right renal cyst. Stable thickening of the urinary bladder wall. Electronically Signed: Ike Colón MD at 12:52 EDT ,
[2023-09-22 10:24] LABS: Differential Comment SCANNED
--- NOTE | 2023-09-22 10:47 | PCM.DC.SUM ---
Providers Date of Admission: 09/19/23 Primary Care Physician: Dr. Gerardo García MD Consultations 09/19/23 14:38 Consult: Infectious Disease Routine Consulting Provider: Ky Goddard Reason for Consult: MDR UTI with Pseudomonas EMERGENT Consult: No Notified: Yes Date Notified: 09/19/23 Time Notified: 13:34 Method of Notification: via texting 09/20/23 09:21 Consult: Urology Routine Consulting Provider: Joshua Strickland Reason for Consult: uti, hydronephrosis EMERGENT Consult: No Notified: Yes Date Notified: 09/20/23 Time Notified: 11:00 Method of Notification: spoke on phone Reason For Visit: UTI Diagnosis Discharge Diagnosis (1) Acute kidney injury superimposed on chronic kidney disease: Status: Chronic Code(s): N17.9 - Acute kidney failure, unspecified; N18.9 - Chronic kidney disease, unspecified Plan: Improving. Baseline range from 1.6 to 2. Monitor (2) Acute UTI: Status: Acute Code(s): N39.0 - Urinary tract infection, site not specified Plan: Complicated. 2/2 Klebsiella pneumoniae. Per ID, can be treated for [address] showed residual left hydronephrosis and moderate right hydronephrosis. Bilateral stents in place. Stable thickening of urinary bladder wall. following, Cephalexin for 10 days. Plan Chronic conditions: Benign essential hypertension BP meds held due to dehydration on admission. Will resume amlodipine CKD IIIb: as above. DVT prophylaxis: Lovenox, renally dosed Medications at Discharge Home Medications albuterol sulfate 90 mcg/actuation aerosol inhaler (Ventolin HFA) 2 puff inhalation Q6H PRN Sob &/Or Wheezing 07/25/18 metoprolol tartrate 50 mg tablet 50 mg PO BID blood pressure 01/27/19 potassium chloride 20 mEq tablet,extended release(part/cryst) 20 meq PO DAILY supplement 09/01/20 amlodipine 2.5 mg tablet 2.5 mg PO DAILY BP #90 tabs 08/12/21 ipratropium bromide 42 mcg (0.06 %) nasal spray 2 spray intranasal DAILY allergie 11/23/21 pantoprazole 40 mg tablet,delayed release 40 mg PO DAILY GERD 03/27/23 cephalexin 500 mg capsule 500 mg PO Q6H #40 caps 09/22/23 Hospital Course Operations None Procedures None Summary of Care Provided Minutes Spent on Discharge: 32 Weight / BMI Weight Weight: 80.1 kg Body Mass Index (BMI) 26.7 ABG / Lab / Microbiology Data 09/22/23 05:15 09/22/23 05:15 Laboratory: Laboratory Results - last 24 hr 09/21/23 16:13: WBC 11.9 H, RBC 3.83 L, Hgb 12.0, Hct 37.7, MCV 98.4, MCH 31.3, MCHC 31.8 L, RDW Std Deviation 52.6 H, RDW Coeff of Dewey 14.6, Plt Count 381, MPV 10.1, Immature Gran % (Auto) 0.800, Neut % (Auto) 51.1, Lymph % (Auto) 39.6, [place] % (Auto) 6.1, Eos % (Auto) 1.9, Baso % (Auto) 0.5, Absolute Neuts (auto) 6.1, Absolute Lymphs (auto) 4.72 H, Nucleated RBC % 0, Sodium 142, Potassium 3.2 L, Chloride 110 H, Carbon Dioxide 23.0, Anion Gap 9, BUN 19 H, Creatinine 2.17 H, Estim Creat Clear Calc 23.99, Est GFR (MDRD) Af Amer 29 L, Est GFR (MDRD) Non-Af 24 L, BUN/Creatinine Ratio 8.8 L, Glucose 85, Calcium 8.0 L 09/22/23 05:15: WBC 12.6 H, RBC 3.85 L, Hgb 12.1, Hct 37.7, MCV 97.9, MCH 31.4, MCHC 32.1, RDW Std Deviation 52.6 H, RDW Coeff of Dewey 14.6, Plt Count 364, MPV 10.6, Immature Gran % (Auto) 0.700, Neut % (Auto) 48.9, Lymph % (Auto) 40.4, [place] % (Auto) 7.5, Eos % (Auto) 2.0, Baso % (Auto) 0.5, Absolute Neuts (auto) 6.2, Absolute Lymphs (auto) 5.10 H, Nucleated RBC % 0, Differential Comment SCANNED, Sodium 142, Potassium 3.3 L, Chloride 110 H, Carbon Dioxide 23.0, Anion Gap 9, BUN 17, Creatinine 2.05 H, Estim Creat Clear Calc 25.39, Est GFR (MDRD) Af Amer 31 L, Est GFR (MDRD) Non-Af 25 L, BUN/Creatinine Ratio 8.3 L, Glucose 88, Calcium 8.1 L Microbiology: Microbiology 09/19/23 11:30 Urine, Clean Catch Urine Culture - Final Klebsiella pneumoniae sp pneum 09/19/23 10:24 Stool C. difficile DNA Amplification - Final Radiography Diagnostic Testing: Radiology Impression Abdomen/Pelvis CT 09/21/23 10:58 IMPRESSION: Stable appearance of the bilateral double-J stent catheters with residual left hydronephrosis and moderate degree of right hydronephrosis and hydroureter. Right renal cyst. Stable thickening of the urinary bladder wall. Electronically Signed: Ike Colón MD at 12:52 EDT , D/C Instructions Discharge Diet: No restrictions Meaningful Use Info Meaningful Use Diagnoses (Choose all that apply): None applicable Discharge Plan Admission Admit Date/Time: 09/19/23 13:24 Primary Reason for Your Visit: UTI Attending Provider: Rafa Lofton Primary Care Provider: Gerardo García Chi Consulting Providers: Ky Goddard; Joshua Strickland; Andres Maurer; Alivia Mcrae Instructions Additional Instructions / Restrictions: You had a urinary tract infection again. The organism is different than last time that is why you do not need IV antibiotics this time. Please take the antibiotics to completion. Please follow-up with Dr. Strickland for follow-up for your stents. Discharge Orders/Prescriptions Prescriptions: New cephalexin 500 mg capsule 500 mg PO Q6H Qty: 40 0RF Continued albuterol sulfate [Ventolin HFA] 90 mcg/actuation HFA aerosol inhaler 2 puff INHALATION Q6H PRN (Reason: Sob &/Or Wheezing) pantoprazole 40 mg tablet,delayed release (DR/EC) 40 mg PO DAILY Hold Instructions: Order Completed metoprolol tartrate 50 MG tablet 50 mg PO BID potassium chloride 20 MEQ tablet,ER particles/crystals 20 meq PO DAILY ipratropium bromide 42 mcg (0.06 %) spray,non-aerosol 2 spray INTRANASAL DAILY amlodipine 2.5 mg tablet 2.5 mg PO DAILY Qty: 90 3RF Referrals / Follow Up: Joshua Strickland MD [Med Staff - Active Staff] - Within 2 Weeks Gerardo García Chi, MD [Primary Care Provider] - Within 2 Weeks Disposition Disposition (needs filled in before D/C Order can be placed): Home, Self Care Charges/Coding Visit Charges Inpatient E&M: 10760 Disch Hosp >30min
[2023-09-22 11:11] VITALS: PULSE 97
[2023-09-22] MEDS: Metoprolol Tartrate 50 MG Tablet PO (11:11)
[2023-09-22] MEDS: amLODIPine 2.5 MG Tablet PO (11:12)
[2023-09-22] MEDS: Pantoprazole Sodium 40 MG Tablet PO (11:12)
[2023-09-22] MEDS: Potassium Chloride Oral Tablet 20 MEQ 40 MEQ PO (11:12)
== END 2023-09-22 12:45 | disposition home or self-care (01) | DRG 690 ==
LOC: ED 12:32 → MS3 13:41
PROVIDERS: Student in an Organized Health Care Education/Training Program; Admitting Provider Internal Medicine; Emergency Provider Emergency Medicine; PCP Family Medicine Geriatric Medicine
DX: N13.6 Pyonephrosis (principal); Z16.23 Resistance to quinolones and fluoroquinolones; N17.9 Acute kidney failure, unspecified; N18.32 Chronic kidney disease, stage 3b; I12.9 Hypertensive chronic kidney disease with stage 1 through stage 4 chronic kidney disease, or unspecified chronic kidney disease; E78.5 Hyperlipidemia, unspecified; R19.7 Diarrhea, unspecified; E86.0 Dehydration; B96.5 Pseudomonas (aeruginosa) (mallei) (pseudomallei) as the cause of diseases classified elsewhere; Z87.891 Personal history of nicotine dependence; Z86.16 Personal history of COVID-19; Z85.41 Personal history of malignant neoplasm of cervix uteri; Z96.0 Presence of urogenital implants
CPT/HCPCS: 36415; 74176; 76770; 80048; 81001; 84100; 85025; 87040; 87077; 87086; 87088; 87186; 87493; 97802; 99284; J2185; J7030; A4216; J2405

== ENCOUNTER → 2023-10-05 | Outpatient (CLI) | payer MEDICARE, SELFPAY ==
[2023-10-05 10:06] LABS: Absolute Lymphocyte Count 4.77 X10^3/uL (0.83-4.51); Absolute Neutrophil Count 9.2 X10^3/uL (2.0-7.7); Basophil# 0.08 X10^3/uL; Basophil% 0.5 % (0-1); Eosinophil# 0.16 X10^3/uL; Hematocrit 38.8 % (37-47); Hemoglobin 12.6 g/dL (12.0-15.0); Lymphocyte # 4.77 X10^3/ul (0.83-4.51); Mean Corp Hgb Conc 32.5 g/dL (32-36); Mean Corpuscular Hgb 31.5 pg (27.0-32.0); Monocyte# 1.05 X10^3/uL; Monocyte% 6.8 % (0-10); NRBC Flagged by Analyzer 0 % (0-5); Neutrophil # 9.17 X10^3/uL (2.7-7.7); Neutrophil % 59.7 % (47-70); Platelet Count 564 K/mm3 (150-450); RBC Distribution Width CV 14.6 % (11.6-14.6); RBC Distribution Width SD 52.1 fl (35.1-43.9); White Blood Count 15.4 K/mm3 (4.4-11.0)
[2023-10-05 10:31] LABS: Anion Gap 7 (5-15); BUN 30 mg/dL (7-18); BUN/Creat Ratio 9.4 RATIO (10-20); Calcium,Total 8.3 mg/dL (8.5-10.1); Chloride 107 mmol/L (98-107); Creatinine, Serum 3.19 mg/dL (0.55-1.02); EST Glomerular Filtration Rate 15 mL/min (>60); Est Glom Filt Rate - Afr Amer 18 mL/min (>60); Glucose 125 mg/dL (74-106); Potassium 4.4 mmol/L (3.5-5.1); Sodium Level 136 mmol/L (136-145)
== END | disposition home or self-care (01) ==
LOC: POLAB3 09:34
PROVIDERS: PCP Family Medicine Geriatric Medicine; Visit Provider Family Medicine Geriatric Medicine
DX: I10 Essential (primary) hypertension (principal)
CPT/HCPCS: 36415; 80048; 85025

== ENCOUNTER → 2023-10-08 | Outpatient (CLI) | payer MEDICARE, SELFPAY ==
[2023-10-08 17:22] LABS: Absolute Lymphocyte Count 5.09 X10^3/uL (0.83-4.51); Absolute Neutrophil Count 13.4 X10^3/uL (2.0-7.7); Basophil# 0.08 X10^3/uL; Basophil% 0.4 % (0-1); Eosinophil# 0.13 X10^3/uL; Eosinophils% 0.6 % (0-5); Hemoglobin 12.5 g/dL (12.0-15.0); Lymphocyte # 5.09 X10^3/ul (0.83-4.51); Lymphocyte % 25.2 % (19-41); Mean Corp Hgb Conc 32.9 g/dL (32-36); Mean Corpuscular Hgb 31.7 pg (27.0-32.0); Mean Corpuscular Volume 96.4 fL (81-99); Mean Platelet Vol. 9.7 fl (6.2-12.0); Monocyte# 1.12 X10^3/uL; Monocyte% 5.6 % (0-10); NRBC Flagged by Analyzer 0 % (0-5); Neutrophil # 13.42 X10^3/uL (2.7-7.7); Neutrophil % 66.6 % (47-70); POSITIVE DIFFERENTIAL YES; Platelet Count 554 K/mm3 (150-450); RBC Distribution Width CV 14.6 % (11.6-14.6); Red Blood Count 3.94 M/mm3 (4.2-5.4); White Blood Count 20.2 K/mm3 (4.4-11.0)
[2023-10-08 17:25] LABS: Differential Indicated SCAN CRITERIA MET
[2023-10-08 17:47] LABS: Lactic Acid 1.2 mmol/L (0.4-1.9)
[2023-10-08 17:57] LABS: Differential Comment SCANNED; Erythrocyte Sedimentation Rate > 130 mm/hr (0-30)
[2023-10-08 18:19] LABS: Anion Gap 8 (5-15); BUN 41 mg/dL (7-18); BUN/Creat Ratio 9.3 RATIO (10-20); Calcium,Total 8.1 mg/dL (8.5-10.1); Chloride 106 mmol/L (98-107); Creatinine, Serum 4.41 mg/dL (0.55-1.02); EST Glomerular Filtration Rate 11 mL/min (>60); Est Glom Filt Rate - Afr Amer 13 mL/min (>60); Glucose 134 mg/dL (74-106); Potassium 4.4 mmol/L (3.5-5.1); Sodium Level 133 mmol/L (136-145)
== END | disposition home or self-care (01) ==
LOC: POLAB3 16:45
PROVIDERS: PCP Family Medicine Geriatric Medicine; Visit Provider Family Medicine Geriatric Medicine
DX: N39.0 Urinary tract infection, site not specified (principal); R68.83 Chills (without fever)
CPT/HCPCS: 36415; 80048; 83605; 85025; 85652; 86140; 87040; 87077; 87086; 87088; 87186

== ENCOUNTER 2023-10-09 13:32 | Emergency (ER) | payer MEDICARE, SELFPAY ==
[2023-10-09 13:34] VITALS: BP 119/69; PULSE 96; RESP 18; TEMP 36.4; O2SAT 100
--- NOTE | 2023-10-09 13:58 | EDS_ITS ---
HPI History of Present Illness Chief Complaint: Abn Labs Informant: patient Narrative Narrative: Patient presents at the urging of her primary care physician. Patient states she was called by Dr. García's office and told that her labs that she had drawn yesterday were abnormal and she needed to go to the hospital for admission. Patient reports generalized fatigue and ongoing diarrhea for quite some time. She states that she was given a dose of an antibiotic in the office yesterday and a prescription was sent to the pharmacy which she has not yet picked up. She believes this was for urinary infection. Patient has ureteral stents bilaterally that are exchanged every 3 months or so. She states with this she tends to get chronic UTIs. [facility] Medical History Acute diarrhea LULY (acute kidney injury) Asthma Dunbar's palsy Bilateral hydronephrosis Bladder disease Blood disorder Bruising Cancer Cardiology follow-up encounter Cervical cancer Chronic renal failure, stage 4 (severe) Dialysis patient Easy bruising Essential hypertension Former smoker Gout High anion gap metabolic acidosis History of biliary stent insertion History of cervical cancer History of Clostridium difficile infection History of COVID-19 History of irregular heartbeat History of renal disease Hx of cataract Hx of echocardiogram Hx of vertigo Hyperlipidemia Hypertension Hypokalemia Hyponatremia Kidney disease Leg cramps Lymphocytosis Mild intermittent asthma MRSA infection Near syncope Problem with dialysis access Sepsis Status post placement of implantable loop recorder (~03/29/20) Thyroid disease Urinary incontinence UTI (urinary tract infection) Wears dentures Home Medications albuterol sulfate 90 mcg/actuation aerosol inhaler (Ventolin HFA) 2 puff inhalation Q6H PRN Sob &/Or Wheezing 07/25/18 [History Last Taken 08/01/23] metoprolol tartrate 50 mg tablet 50 mg PO BID blood pressure 01/27/19 [History Last Taken 08/01/23] potassium chloride 20 mEq tablet,extended release(part/cryst) 20 meq PO DAILY supplement 09/01/20 [History Last Taken 08/01/23] amlodipine 2.5 mg tablet 2.5 mg PO DAILY BP #90 tabs 08/12/21 [Rx Last Taken 08/01/23] ipratropium bromide 42 mcg (0.06 %) nasal spray 2 spray intranasal DAILY allergie 11/23/21 [History Last Taken 08/01/23] pantoprazole 40 mg tablet,delayed release 40 mg PO DAILY GERD 03/27/23 [History Last Taken 08/01/23] cephalexin 500 mg capsule 500 mg PO Q6H #40 caps 09/22/23 [Rx Last Taken Unknown] Allergy/AdvReac Type Severity Reaction Status Date / Time clindamycin Allergy Severe unsure of Verified 10/09/23 16:10 reaction pravastatin Allergy Severe Chest Verified 10/09/23 13:34 tightness procaine [From Novocain] Allergy Severe NEEDS Verified 10/09/23 13:34 FOLLOW-UP sulfamethoxazole Allergy Severe Shortness Verified 10/09/23 13:34 [From Bactrim] of breath trimethoprim [From Bactrim] Allergy Severe Shortness Verified 10/09/23 13:34 of breath levofloxacin [From Levaquin] Allergy UNSURE OF Verified 10/09/23 16:10 REACTION Wkohwaq-ILF-YdC Reductase Allergy Anaphylaxis Verified 10/09/23 13:34 Inhibitor methylprednisolone AdvReac Severe Pain in Verified 10/09/23 13:34 joints Family History Father , 32 yrs old CAD (coronary artery disease) History of coronary artery bypass surgery Mother Cancer Lung CA, Hx tobacco use. Surgical History History of arteriovenostomy for renal dialysis (~09/2021) History of cardiac catheterization (~01/08/18) History of cardiac catheterization History of cholecystectomy History of excision of mass History of hysterectomy History of loop recorder history of radium implant Hx of cystoscopy S/P arteriovenous (AV) fistula creation Social History household members: spouse and children number of children: 6 current occupational status: retired history of recent travel: No Smoking Status: Former smoker second hand exposure: No alcohol intake: never substance use type: does not use what type of physical activity do you participate in: walking saurabh/church: Non-Sikhism/Independent seatbelt use: always do you feel safe at home: Yes additional social history: - Fernando PALOMO STACIA ED Constitutional Constitutional ED: Denies chills or fever(s) Eyes Eyes: Denies change in vision or discharge from eye(s) ENT ENT ED: Denies discharge from eye(s), rhinorrhea or sore throat Cardiovascular Cardiovascular: Denies chest pain or palpitations Respiratory/Chest Respiratory/Chest: Denies cough or dyspnea Gastrointestinal Gastrointestinal: Reports diarrhea; Denies abdominal pain, nausea or vomiting Genitourinary Genitourinary ED: Denies difficulty urinating or dysuria Musculoskeletal Musculoskeletal: Denies back pain or extremity pain Integumentary Denies Abrasions or rash Neurologic Neurologic: Reports weakness; Denies headache(s) Psychiatric Psychiatric: Denies anxiety or depression Allergic/Immunologic Allergic/Immunologic ED: Denies lip swelling or urticaria EXAM Physical Exam Const Vital Signs: 10/09/23 13:34 10/09/23 14:28 10/09/23 15:33 Temperature 97.6 F L Temperature Source Temporal Pulse Rate 96 91 Respiratory Rate 18 16 Respiratory Effort Normal Respiratory Pattern Normal Blood Pressure 119/69 111/64 Blood Pressure Mean 85 79 Pulse Ox 100 90 Oxygen Delivery Method Room Air Room Air Positive well nourished and well developed General Appearance ED: well developed HEENT Reports moist mucous membranes Eyes EOMs intact bilaterally Chest Wall inspection of chest normal and palpation of chest normal Resp normal respiratory effort and clear to auscultation bilaterally Cardio regular rate and regular rhythm GI non-tender Auscultation: normoactive bowel sounds Palpation: soft Extremity normal to inspection Neuro oriented x3 and no sensory deficits noted Motor Exam: strength 5/5 throughout Psych mental status grossly normal Skin no rashes or lesions noted MDM MDM MDM Narrative Medical decision making narrative: Patient placed on quality assurance monitor. IV line initiated. Labwork obtained to ev aluate for leukocytosis, anemia, and electrolyte derangement. Urinalysis obtained to evaluate for infection/hematuria. CT flank obtained to evaluate the ureteral stents that she has in place. I spoke with Dr. García, patient's primary care physician. He states his primary concern was that her creatinine is climbing and yesterday was up to 4.41. He states that she received radiation to her abdomen for some form of cancer in the past and she has bilateral ureteral scarring that requires her to have the ureteral stents. He is concerned that they are not draining appropriately as her creatinine continues to rise. History & Record Review Discussion w/independent historian: Patient Additional record(s) reviewed:: Prior inpatient record, Prior outpatient record, Prior ED visit and Prior labs Lab Data Attestation: I reviewed the patient's lab results. Labs: Laboratory Results - last 24 hr 10/09/23 10/09/23 10/09/23 14:18 14:45 15:35 WBC 15.5 H RBC 3.76 L Hgb 11.6 L Hct 36.2 L MCV 96.3 MCH 30.9 MCHC 32.0 RDW Std Deviation 51.8 H RDW Coeff of Dewey 14.6 Plt Count 461 H MPV 10.1 Immature Gran % (Auto) 1.700 H Neut % (Auto) 64.5 Lymph % (Auto) 26.5 [place] % (Auto) 5.7 Eos % (Auto) 1.0 Baso % (Auto) 0.6 Absolute Neuts (auto) 10.0 H Absolute Lymphs (auto) 4.11 Nucleated RBC % 0 Sodium 136 Potassium 4.3 Chloride 106 Carbon Dioxide 22.0 Anion Gap 8 BUN 44 H Creatinine 4.72 H Est GFR (MDRD) Af Amer 12 L Est GFR (MDRD) Non-Af 10 L BUN/Creatinine Ratio 9.3 L Glucose 115 H Lactic Acid Cancelled 1.3 Calcium 8.0 L Total Bilirubin 0.30 Direct Bilirubin 0.14 AST 20 ALT 20 Alkaline Phosphatase 92 Total Protein 8.3 H Albumin 2.0 L Globulin 6.3 H Urine Color Yellow Urine Clarity Cloudy Urine pH 6.0 Ur Specific [place] 1.010 Urine Protein 100 H Urine Glucose (UA) Normal Urine Ketones Negative Urine Occult Blood 250 H Urine Nitrite Negative Urine Bilirubin Negative Urine Urobilinogen Normal Ur Leukocyte Esterase 500 H Urine RBC 5-10 SEEN Urine WBC >100 SEEN Ur Squamous Epith Cells 0-5 SEEN Urine Bacteria 2+ Urine Mucus 0 SEEN Radiography Diagnostic Testing: Clinical Impression(s) from Imaging Studies Abdomen/Pelvis CT 10/09/23 15:02 IMPRESSION: 1. Bilateral severe hydronephrosis with cortical thinning similar on the right and mildly increased on the left compared with the previous examination with similar perinephric stranding. 2. Bilateral double-J ureteral stents. 3. Hysterectomy. 4. Cholecystectomy. Electronically Signed: Lloyd Estrada MD at 15:22 EST , Treatment and Re-Evaluation :: White blood cell count is elevated at 15.5. It is noted that the patient runs a chronically elevated white count in the teens. Hemoglobin is 11.6. Differential is unremarkable. Chemistry studies reveal normal potassium of 4.3. BUN is 44 and creatinine is up to 4.72. It appears her baseline creatinine is around 2-2.3. Yesterday her creatinine was 4.41. Urinalysis today reveals greater than 100 white cells with 2+ bacteria. Urine culture obtained yesterday is growing gram-negative rods lactose bag turner's. Patient is given a dose of IV Rocephin. CT of the flank reveals bilateral severe hydronephrosis with cortical thinning similar on the right but mildly increased on the left compared to prior. Bilateral double-J stents are in place. With patient's worsening renal function I did speak with Dr. Strickland, her urologist. He is currently out of town and unable to assist. He recommends from the patient for urologic care. Patient has been accepted by hospitalist at [facility]. We will arrange transport once bed assignment obtained. Discharge Plan Triage Chief Complaint: Abn Labs ED Provider: Carlene Bower Dx/Rx/DC Orders Clinical Impression: LULY (acute kidney injury), Bilateral hydronephrosis Prescriptions: No Action albuterol sulfate [Ventolin HFA] 90 mcg/actuation HFA aerosol inhaler 2 puff INHALATION Q6H PRN (Reason: Sob &/Or Wheezing) pantoprazole 40 mg tablet,delayed release (DR/EC) 40 mg PO DAILY Hold Instructions: Order Completed metoprolol tartrate 50 MG tablet 50 mg PO BID potassium chloride 20 MEQ tablet,ER particles/crystals 20 meq PO DAILY ipratropium bromide 42 mcg (0.06 %) spray,non-aerosol 2 spray INTRANASAL DAILY cephalexin 500 mg capsule 500 mg PO Q6H Qty: 40 0RF amlodipine 2.5 mg tablet 2.5 mg PO DAILY Qty: 90 3RF Primary Care Provider: Gerardo García Chi Referrals: Gerardo García Chi, MD [Primary Care Provider] - Disposition Disposition: Acute Care Hospital Discharge Location: [facility]
[2023-10-09 14:27] LABS: Absolute Lymphocyte Count 4.11 X10^3/uL (0.83-4.51); Basophil# 0.09 X10^3/uL; Basophil% 0.6 % (0-1); Eosinophil# 0.15 X10^3/uL; Hematocrit 36.2 % (37-47); Hemoglobin 11.6 g/dL (12.0-15.0); Lymphocyte # 4.11 X10^3/ul (0.83-4.51); Lymphocyte % 26.5 % (19-41); Mean Corpuscular Hgb 30.9 pg (27.0-32.0); Mean Corpuscular Volume 96.3 fL (81-99); Mean Platelet Vol. 10.1 fl (6.2-12.0); Monocyte# 0.88 X10^3/uL; Monocyte% 5.7 % (0-10); NRBC Flagged by Analyzer 0 % (0-5); Neutrophil # 10.03 X10^3/uL (2.7-7.7); Neutrophil % 64.5 % (47-70); Platelet Count 461 K/mm3 (150-450); RBC Distribution Width CV 14.6 % (11.6-14.6); RBC Distribution Width SD 51.8 fl (35.1-43.9); Red Blood Count 3.76 M/mm3 (4.2-5.4); White Blood Count 15.5 K/mm3 (4.4-11.0)
[2023-10-09 14:45] LABS: AST(SGOT) 20 U/L (15-37); Alanine Aminotransfer ALT/SGPT 20 U/L (13-56); Alkaline Phosphatase 92 U/L (45-117); Anion Gap 8 (5-15); BUN 44 mg/dL (7-18); BUN/Creat Ratio 9.3 RATIO (10-20); Bilirubin, Direct 0.14 mg/dL (0.00-0.30); Chloride 106 mmol/L (98-107); Creatinine, Serum 4.72 mg/dL (0.55-1.02); EST Glomerular Filtration Rate 10 mL/min (>60); Est Glom Filt Rate - Afr Amer 12 mL/min (>60); Globulin 6.3 g/dL (2.2-4.2); Glucose 115 mg/dL (74-106); Potassium 4.3 mmol/L (3.5-5.1); Protein, Total 8.3 g/dL (6.4-8.2); Sodium Level 136 mmol/L (136-145)
--- NOTE | 2023-10-09 15:02 | CT_ITS ---
EXAM: CT ABDOMEN AND PELVIS WITHOUT INTRAVENOUS CONTRAST CLINICAL INDICATION: renal failure TECHNIQUE: Helically acquired images were obtained of the abdomen and pelvis without intravenous contrast. This CT exam was performed using one or more of the following dose reduction techniques: automated exposure control, adjustment of the mA and/or kV according to patient size, and/or use of iterative reconstruction technique. RADIATION DOSE: CTDIvol = 6.51 mGy, DLP = 341.44 mGy-cm COMPARISON: 09/21/2023. FINDINGS: LOWER THORAX: Unremarkable. Lung bases are clear. No cardiomegaly. No significant pericardial effusion. ABDOMEN: LIVER: Unremarkable. Homogeneous. GALLBLADDER AND BILE DUCTS: Cholecystectomy. No intra- or extrahepatic biliary ductal dilation. PANCREAS: Unremarkable. No focal cystic mass. SPLEEN: Unremarkable. Normal size without focal cystic or solid mass. ADRENALS: Unremarkable. No nodules. KIDNEYS AND URETERS: Bilateral severe hydronephrosis with cortical thinning similar on the right and mildly increased on the left compared with the previous examination with similar perinephric stranding. Normal renal size and position. STOMACH AND BOWEL: Unremarkable. No stomach or bowel distention. No focal inflammatory change. PELVIS: APPENDIX: No evidence of acute appendicitis. BLADDER: Unremarkable. REPRODUCTIVE: Hysterectomy. ABDOMEN and PELVIS: INTRAPERITONEAL SPACE: Unremarkable. No ascites or other fluid collection. No free air. BONES/JOINTS: Unremarkable. No suspicious lytic or blastic abnormality. SOFT TISSUES: Unremarkable. No discrete abdominal or pelvic wall hernia. VASCULATURE: Unremarkable. Abdominal aorta is non-dilated. LYMPH NODES: Unremarkable. No enlarged lymph nodes. TUBES, LINES AND DEVICES: Bilateral double-J ureteral stents. CT/Abdomen/Pelvis without Cont IMPRESSION: 1. Bilateral severe hydronephrosis with cortical thinning similar on the right and mildly increased on the left compared with the previous examination with similar perinephric stranding. 2. Bilateral double-J ureteral stents. 3. Hysterectomy. 4. Cholecystectomy. Electronically Signed: Lloyd Estrada MD at 15:22 EST ,
[2023-10-09 15:13] LABS: Lactic Acid 1.3 mmol/L (0.4-1.9)
[2023-10-09 15:33] VITALS: BP 111/64; PULSE 91; RESP 16; O2SAT 90
[2023-10-09 15:44] LABS: Mucous, Urine 0 SEEN /hpf (<or=2+)
[2023-10-09] MEDS: 0.9% Normal Saline (1000mL) 1,000 ML 150 ML IV (16:00)
[2023-10-09 16:03] LABS: Color, Urine Yellow (Yellow); Glucose, Dipstick Normal (Normal); Ketone-Dipstick Negative (Negative); Leukocyte Esterase-Dipstick 500 /ul (Negative); Nitrite-Dipstick Negative (Negative); Occult Blood-Urine 250 /ul (Negative); Protein-Dipstick 100 mg/dl (Negative); Urine Bilirubin Dipstick Negative (Negative); Urine Clarity Cloudy (Clear); Urine Urobilinogen Normal (Normal)
[2023-10-09 16:24] LABS: Bacteria 2+ /hpf (None Seen); White Blood Cells >100 SEEN /hpf (0-5)
[2023-10-09 16:25] LABS: Red Blood Cells-Urine 5-10 SEEN /hpf (0-5); Squamous Epithelial Cells - UA 0-5 SEEN /hpf (5-10)
[2023-10-09] MEDS: Ceftriaxone 1 GM/50 ML BAG IV (16:52)
[2023-10-09 17:00] VITALS: BP 127/69; RESP 18; O2SAT 98
--- NOTE | 2023-10-09 17:34 | NURSING ---
WAITING FOR ROOM NUMBER ASSIGNMENT FROM [facility]
--- NOTE | 2023-10-09 17:50 | NURSING ---
CALLED [facility], STILL WAITING FOR ROOM NUMBER
[2023-10-09 18:12] VITALS: BMI 26.6
--- NOTE | 2023-10-09 18:21 | NURSING ---
ETA GIVEN 3-4 HOURS. 9-10 PM
[2023-10-09 18:25] VITALS: BP 128/71; PULSE 88; RESP 15; O2SAT 95
[2023-10-09 19:34] VITALS: PULSE 97; RESP 16; O2SAT 98
[2023-10-09 21:00] VITALS: PULSE 93; RESP 24; O2SAT 97
[2023-10-09] MEDS: Acetaminophen 500 MG Tablet 1000 MG PO (21:15)
== END 2023-10-09 21:41 | disposition short-term general hospital (02) ==
PROVIDERS: Emergency Provider Emergency Medicine; PCP Family Medicine Geriatric Medicine; Visit Provider Emergency Medicine
DX: N17.9 Acute kidney failure, unspecified (principal); N18.4 Chronic kidney disease, stage 4 (severe); N13.30 Unspecified hydronephrosis; I12.9 Hypertensive chronic kidney disease with stage 1 through stage 4 chronic kidney disease, or unspecified chronic kidney disease; Z79.899 Other long term (current) drug therapy; Z87.891 Personal history of nicotine dependence; Z86.16 Personal history of COVID-19
CPT/HCPCS: 74176; 80048; 80076; 81001; 83605; 85025; 87040; 87086; 87088; 96365; 99285; J7030; A4216

== ENCOUNTER → 2023-10-23 | Outpatient (CLI) | payer MEDICARE, SELFPAY ==
[2023-10-23 15:38] LABS: Absolute Lymphocyte Count 6.51 X10^3/uL (0.83-4.51); Absolute Neutrophil Count 8.7 X10^3/uL (2.0-7.7); Basophil# 0.08 X10^3/uL; Basophil% 0.5 % (0-1); Eosinophil# 0.12 X10^3/uL; Eosinophils% 0.7 % (0-5); Hematocrit 37.1 % (37-47); Hemoglobin 11.8 g/dL (12.0-15.0); Lymphocyte # 6.51 X10^3/ul (0.83-4.51); Lymphocyte % 39.4 % (19-41); Mean Corp Hgb Conc 31.8 g/dL (32-36); Mean Corpuscular Hgb 31.2 pg (27.0-32.0); Mean Corpuscular Volume 98.1 fL (81-99); Mean Platelet Vol. 11.1 fl (6.2-12.0); Monocyte# 1.04 X10^3/uL; Monocyte% 6.3 % (0-10); NRBC Flagged by Analyzer 0 % (0-5); Neutrophil # 8.65 X10^3/uL (2.7-7.7); Neutrophil % 52.4 % (47-70); POSITIVE DIFFERENTIAL YES; Platelet Count 479 K/mm3 (150-450); RBC Distribution Width CV 15.1 % (11.6-14.6); RBC Distribution Width SD 54.8 fl (35.1-43.9); Red Blood Count 3.78 M/mm3 (4.2-5.4); White Blood Count 16.5 K/mm3 (4.4-11.0)
[2023-10-23 15:46] LABS: Differential Indicated SCAN CRITERIA MET; Vitamin D,25 Hydroxy 60.2 ng/mL
[2023-10-23 15:47] LABS: Albumin, Serum 2.4 g/dL (3.2-5.0); BUN 14 mg/dL (7-18); BUN/Creat Ratio 7.6 RATIO (10-20); Calcium,Total 7.9 mg/dL (8.5-10.1); Chloride 106 mmol/L (98-107); Creatinine, Serum 1.84 mg/dL (0.55-1.02); EST Glomerular Filtration Rate 29 mL/min (>60); Est Glom Filt Rate - Afr Amer 35 mL/min (>60); Glucose 104 mg/dL (74-106); Phosphorus 3.5 mg/dL (2.5-4.9); Sodium Level 138 mmol/L (136-145)
[2023-10-23 16:04] LABS: PTHIN 108.4 pg/mL (18.4-80.1)
[2023-10-23 16:17] LABS: Differential Comment SCANNED
== END | disposition home or self-care (01) ==
LOC: POLAB3 14:25
PROVIDERS: PCP Family Medicine Geriatric Medicine; Visit Provider Internal Medicine Nephrology
DX: E55.9 Vitamin D deficiency, unspecified (principal); N18.4 Chronic kidney disease, stage 4 (severe); N25.81 Secondary hyperparathyroidism of renal origin
CPT/HCPCS: 36415; 80069; 82306; 83970; 85025

== ENCOUNTER → 2023-10-30 | Outpatient (CLI) | payer MEDICARE, SELFPAY ==
[2023-10-30 12:04] LABS: Cholesterol 155 mg/dL (200); High Density Lipoprotein 36 mg/dL; Thyroid Stim Hormone (TSH) 2.78 uIU/mL (0.358-3.74); Triglycerides 124 mg/dL; Very Low Density Lipoprotein 25 mg/dL (5-40)
== END | disposition home or self-care (01) ==
LOC: POLAB3 11:09
PROVIDERS: PCP Family Medicine Geriatric Medicine; Visit Provider Family Medicine Geriatric Medicine
DX: I10 Essential (primary) hypertension (principal); E55.9 Vitamin D deficiency, unspecified; E78.5 Hyperlipidemia, unspecified
CPT/HCPCS: 36415; 80061; 84443

== ENCOUNTER 2023-11-06 09:46 | Emergency (ER) | payer MEDICARE, SELFPAY ==
[2023-11-06 09:46] VITALS: BP 142/87; PULSE 111; RESP 16; TEMP 36.4; O2SAT 97
--- NOTE | 2023-11-06 10:06 | EDS_ITS ---
HPI History of Present Illness Chief Complaint: Abd Pain Informant: patient Onset/Context/Timing Onset: Days (2) Context: Gradual Onset Timing: Continuous Worsened by: Nothing Relieved by: Nothing Narrative Narrative: Patient presents with nausea, vomiting, and diarrhea that began 2 days ago. Patient states it is gradually getting worse. Patient states she had a temperature of 99.7 at home today. Patient is concerned because she has a history of urinary tract infections but never has typical symptoms of urinary tract infections. Patient states he has a history of urosepsis. Patient denies any abdominal pain. Patient denies any dysuria, frequency, or hematuria. Patient denies any hematemesis or coffee-ground emesis. Patient denies any melena or hematochezia. [facility] Medical History Acute diarrhea LULY (acute kidney injury) Asthma Dunbar's palsy Bilateral hydronephrosis Bladder disease Blood disorder Bruising Cancer Cardiology follow-up encounter Cervical cancer Chronic renal failure, stage 4 (severe) Dialysis patient Easy bruising Essential hypertension Former smoker Gout High anion gap metabolic acidosis History of biliary stent insertion History of cervical cancer History of Clostridium difficile infection History of COVID-19 History of irregular heartbeat History of renal disease Hx of cataract Hx of echocardiogram Hx of vertigo Hyperlipidemia Hypertension Hypokalemia Hyponatremia Kidney disease Leg cramps Lymphocytosis Mild intermittent asthma MRSA infection Near syncope Problem with dialysis access Sepsis Status post placement of implantable loop recorder (~03/29/20) Thyroid disease Urinary incontinence UTI (urinary tract infection) Wears dentures Home Medications albuterol sulfate 90 mcg/actuation aerosol inhaler (Ventolin HFA) 2 puff inhalation Q6H PRN Sob &/Or Wheezing 07/25/18 [History Last Taken 08/01/23] metoprolol tartrate 50 mg tablet 50 mg PO BID blood pressure 01/27/19 [History Last Taken 08/01/23] potassium chloride 20 mEq tablet,extended release(part/cryst) 20 meq PO DAILY supplement 09/01/20 [History Last Taken 08/01/23] amlodipine 2.5 mg tablet 2.5 mg PO DAILY BP #90 tabs 08/12/21 [Rx Last Taken 08/01/23] ipratropium bromide 42 mcg (0.06 %) nasal spray 2 spray intranasal DAILY allergie 11/23/21 [History Last Taken 08/01/23] pantoprazole 40 mg tablet,delayed release 40 mg PO DAILY GERD 03/27/23 [History Last Taken 08/01/23] cephalexin 500 mg capsule 500 mg PO Q6H #40 caps 09/22/23 [Rx Last Taken Unknown] cephalexin 500 mg capsule 500 mg PO Q6 #20 CAPSULES 11/06/23 [Rx Last Taken Unknown] Allergy/AdvReac Type Severity Reaction Status Date / Time clindamycin Allergy Severe unsure of Verified 10/09/23 16:10 reaction pravastatin Allergy Severe Chest Verified 10/09/23 13:34 tightness procaine [From Novocain] Allergy Severe NEEDS Verified 10/09/23 13:34 FOLLOW-UP sulfamethoxazole Allergy Severe Shortness Verified 10/09/23 13:34 [From Bactrim] of breath trimethoprim [From Bactrim] Allergy Severe Shortness Verified 10/09/23 13:34 of breath levofloxacin [From Levaquin] Allergy UNSURE OF Verified 10/09/23 16:10 REACTION [id number]-SoU Reductase Allergy Anaphylaxis Verified 10/09/23 13:34 Inhibitor methylprednisolone AdvReac Severe Pain in Verified 10/09/23 13:34 joints Family History Father , 32 yrs old CAD (coronary artery disease) History of coronary artery bypass surgery Mother Cancer Lung CA, Hx tobacco use. Surgical History History of arteriovenostomy for renal dialysis (~09/2021) History of cardiac catheterization (~01/08/18) History of cardiac catheterization History of cholecystectomy History of excision of mass History of hysterectomy History of loop recorder history of radium implant Hx of cystoscopy S/P arteriovenous (AV) fistula creation Social History household members: spouse and children number of children: 6 current occupational status: retired history of recent travel: No Smoking Status: Former smoker second hand exposure: No alcohol intake: never substance use type: does not use what type of physical activity do you participate in: walking saurabh/gnosticism: Non-Shinto/Independent seatbelt use: always do you feel safe at home: Yes additional social history: - Fernando PALOMO ED Constitutional Constitutional ED: Reports fever(s); Denies chills Eyes Eyes: Denies blurry vision or change in vision ENT ENT ED: Reports rhinorrhea; Denies sore throat Cardiovascular Cardiovascular: Denies chest pain or palpitations Respiratory/Chest Respiratory/Chest: Denies cough or dyspnea Gastrointestinal Gastrointestinal: Reports diarrhea, nausea and vomiting Genitourinary Genitourinary ED: Denies dysuria or hematuria Musculoskeletal Musculoskeletal: Denies back pain or neck pain Integumentary Denies abscess or rash Neurologic Neurologic: Denies headache(s) or weakness Allergic/Immunologic Allergic/Immunologic ED: Denies mouth swelling or urticaria EXAM Physical Exam Const Vital Signs: 11/06/23 09:46 11/06/23 11:46 Temperature 97.6 F L Temperature Source Temporal Pulse Rate 111 H Respiratory Rate 16 18 Blood Pressure 142/87 H Blood Pressure Mean 105 Pulse Ox 97 100 Oxygen Delivery Method Room Air Room Air Positive well nourished and well developed General Appearance ED: well developed and NAD HEENT Reports moist mucous membranes Neck supple and no JVD Chest Wall inspection of chest normal and palpation of chest normal Resp normal respiratory effort and clear to auscultation bilaterally Cardio regular rate and regular rhythm GI non-tender and non-distended Palpation: soft Back/Spine no CVA tenderness Neuro oriented x3, CN's II-XII intact bilaterally and no sensory deficits noted Sensorium / Orientation: alert Motor Exam: strength 5/5 throughout Psych mental status grossly normal MDM MDM MDM Narrative Medical decision making narrative: Differential diagnosis includes gastroenteritis, urinary tract infection, dehydration, electrolyte abnormality, and viral illness. CBC will be obtained to assess for leukocytosis and anemia. Basic metabolic profile will be obtained to assess for electrolyte abnormality and renal function. Urinalysis will be obtained to assess for urinary tract infection. History & Record Review Additional record(s) reviewed:: Prior labs Lab Data Attestation: I reviewed the patient's lab results. Lab results narrative: CBC was reviewed. There is a mild leukocytosis of 16.0. This is consistent with prior results. Hemoglobin was 11.6 and hematocrit was 37.3. This is also consistent with prior results. Basic metabolic profile was reviewed. Potassium was slightly low at 3.3. BUN was 19 and creatinine was 2.58. Patient has had similar results in the past. Urinalysis was reviewed. Leukocyte esterase is 500 with positive nitrates. There were 25-50 white blood cells and 2+ bacteria. Occult blood was 250. There were also 25-50 red blood cells. Labs: Laboratory Results - last 24 hr 11/06/23 11/06/23 10:51 11:14 WBC 16.0 H RBC 3.78 L Hgb 11.6 L Hct 37.3 MCV 98.7 MCH 30.7 MCHC 31.1 L RDW Std Deviation 54.0 H RDW Coeff of [place]wey 15.1 H Plt Count 330 MPV 9.9 Immature Gran % (Auto) 0.700 Neut % (Auto) 66.6 Lymph % (Auto) 25.5 [place] % (Auto) 6.2 Eos % (Auto) 0.6 Baso % (Auto) 0.4 Absolute Neuts (auto) 10.7 H Absolute Lymphs (auto) 4.08 Nucleated RBC % 0 Sodium 139 Potassium 3.3 L Chloride 106 Carbon Dioxide 24.0 Anion Gap 9 BUN 19 H Creatinine 2.58 H Est GFR (MDRD) Af Amer 24 L Est GFR (MDRD) Non-Af 19 L BUN/Creatinine Ratio 7.4 L Glucose 101 Calcium 7.3 L Urine Color Yellow Urine Clarity Sl. Cloudy Urine pH 6.5 Ur Specific [place] 1.010 Urine Protein 100 H Urine Glucose (UA) Normal Urine Ketones Negative Urine Occult Blood 250 H Urine Nitrite Positive H Urine Bilirubin Negative Urine Urobilinogen Normal Ur Leukocyte Esterase 500 H Urine RBC 25-50 SEEN Urine WBC 25-50 SEEN Ur Squamous Epith Cells 0-5 SEEN Urine Bacteria 2+ Urine Mucus 0 SEEN Treatment and Re-Evaluation :: Patient was given IV fluids and Zofran. Urine culture was ordered. Patient was started on Rocephin. Patient was advised of her findings. Patient was given a prescription for Keflex. Patient was instructed to drink plenty of fluids. Patient was instructed to follow-up with her primary care physician in 5 to 7 days. Patient understood and was agreeable with the plan. All questions were answered. Discharge Plan Triage Chief Complaint: Abd Pain Other Complaint: Nausea/Vomiting/Diarrhea ED Provider: Rafa Glynn Dx/Rx/DC Orders Clinical Impression: Urinary tract infection, Essential hypertension Instructions: ED Cystitis Female Adult Prescriptions: New cephalexin [cephalexin] 500 mg capsule 500 mg PO Q6 Qty: 20 0RF No Action albuterol sulfate [Ventolin HFA] 90 mcg/actuation HFA aerosol inhaler 2 puff INHALATION Q6H PRN (Reason: Sob &/Or Wheezing) pantoprazole 40 mg tablet,delayed release (DR/EC) 40 mg PO DAILY Hold Instructions: Order Completed metoprolol tartrate 50 MG tablet 50 mg PO BID potassium chloride 20 MEQ tablet,ER particles/crystals 20 meq PO DAILY ipratropium bromide 42 mcg (0.06 %) spray,non-aerosol 2 spray INTRANASAL DAILY cephalexin 500 mg capsule 500 mg PO Q6H Qty: 40 0RF amlodipine 2.5 mg tablet 2.5 mg PO DAILY Qty: 90 3RF Primary Care Provider: Gerardo García Chi Referrals: Gerardo García Chi, MD [Primary Care Provider] - 5-7 Days Disposition Disposition: Home, Self Care
[2023-11-06 11:01] LABS: Mucous, Urine 0 SEEN /hpf (<or=2+)
[2023-11-06 11:04] LABS: Color, Urine Yellow (Yellow); Glucose, Dipstick Normal (Normal); Ketone-Dipstick Negative (Negative); Leukocyte Esterase-Dipstick 500 /ul (Negative); Nitrite-Dipstick Positive (Negative); Occult Blood-Urine 250 /ul (Negative); Protein-Dipstick 100 mg/dl (Negative); Urine Bilirubin Dipstick Negative (Negative); Urine Clarity Sl. Cloudy (Clear); Urine Urobilinogen Normal (Normal); Urine pH 6.5 (5.0 - 8.0)
[2023-11-06 11:14] LABS: Red Blood Cells-Urine 25-50 SEEN /hpf (0-5)
[2023-11-06 11:15] LABS: Bacteria 2+ /hpf (None Seen); Squamous Epithelial Cells - UA 0-5 SEEN /hpf (5-10); White Blood Cells 25-50 SEEN /hpf (0-5)
[2023-11-06 11:18] LABS: Absolute Lymphocyte Count 4.08 X10^3/uL (0.83-4.51); Absolute Neutrophil Count 10.7 X10^3/uL (2.0-7.7); Basophil# 0.06 X10^3/uL; Basophil% 0.4 % (0-1); Eosinophils% 0.6 % (0-5); Hematocrit 37.3 % (37-47); Hemoglobin 11.6 g/dL (12.0-15.0); Lymphocyte # 4.08 X10^3/ul (0.83-4.51); Lymphocyte % 25.5 % (19-41); Mean Corp Hgb Conc 31.1 g/dL (32-36); Mean Corpuscular Hgb 30.7 pg (27.0-32.0); Mean Corpuscular Volume 98.7 fL (81-99); Mean Platelet Vol. 9.9 fl (6.2-12.0); Monocyte# 0.99 X10^3/uL; Monocyte% 6.2 % (0-10); NRBC Flagged by Analyzer 0 % (0-5); Neutrophil # 10.65 X10^3/uL (2.7-7.7); Neutrophil % 66.6 % (47-70); Platelet Count 330 K/mm3 (150-450); RBC Distribution Width CV 15.1 % (11.6-14.6); Red Blood Count 3.78 M/mm3 (4.2-5.4)
[2023-11-06] MEDS: 0.9% Normal Saline (1000mL) 1,000 ML 1000 ML IV (11:29)
[2023-11-06] MEDS: Ondansetron 4 MG/2 ML Vial IV (11:29)
[2023-11-06 11:31] LABS: Anion Gap 9 (5-15); BUN 19 mg/dL (7-18); BUN/Creat Ratio 7.4 RATIO (10-20); Calcium,Total 7.3 mg/dL (8.5-10.1); Chloride 106 mmol/L (98-107); Creatinine, Serum 2.58 mg/dL (0.55-1.02); EST Glomerular Filtration Rate 19 mL/min (>60); Est Glom Filt Rate - Afr Amer 24 mL/min (>60); Glucose 101 mg/dL (74-106); Potassium 3.3 mmol/L (3.5-5.1); Sodium Level 139 mmol/L (136-145)
[2023-11-06 11:46] VITALS: RESP 18; O2SAT 100
[2023-11-06] MEDS: Ceftriaxone 1 GM/50 ML BAG IV (12:46)
[2023-11-06 13:37] VITALS: PULSE 89; RESP 16; O2SAT 100
== END 2023-11-06 13:38 | disposition home or self-care (01) ==
PROVIDERS: Emergency Provider Emergency Medicine; PCP Family Medicine Geriatric Medicine; Visit Provider Emergency Medicine
DX: N39.0 Urinary tract infection, site not specified (principal); N18.4 Chronic kidney disease, stage 4 (severe); I12.9 Hypertensive chronic kidney disease with stage 1 through stage 4 chronic kidney disease, or unspecified chronic kidney disease; Z87.891 Personal history of nicotine dependence; Z86.16 Personal history of COVID-19
CPT/HCPCS: 80048; 81001; 85025; 87086; 87088; 96365; 96375; 99283; J7030; J7050; A4216; J2405

== ENCOUNTER 2023-11-10 20:04 | Inpatient (IN) | payer MEDICARE, SELFPAY ==
[2023-11-10 20:04] VITALS: BP 121/73; PULSE 140; RESP 16; TEMP 36.2; O2SAT 97
[2023-11-10 20:11] VITALS: BMI 25.9
[2023-11-10 20:41] LABS: Absolute Neutrophil Count 12.4 X10^3/uL (2.0-7.7); Basophil# 0.09 X10^3/uL; Basophil% 0.4 % (0-1); Eosinophil# 0.14 X10^3/uL; Eosinophils% 0.6 % (0-5); Hematocrit 38.3 % (37-47); Hemoglobin 12.3 g/dL (12.0-15.0); Lymphocyte % 36.1 % (19-41); Mean Corp Hgb Conc 32.1 g/dL (32-36); Mean Corpuscular Hgb 31.5 pg (27.0-32.0); Mean Platelet Vol. 10.2 fl (6.2-12.0); Monocyte# 1.29 X10^3/uL; Monocyte% 5.9 % (0-10); NRBC Flagged by Analyzer 0.1 % (0-5); Neutrophil # 12.35 X10^3/uL (2.7-7.7); Neutrophil % 56.4 % (47-70); POSITIVE DIFFERENTIAL YES; Platelet Count 408 K/mm3 (150-450); RBC Distribution Width CV 15.4 % (11.6-14.6); RBC Distribution Width SD 54.4 fl (35.1-43.9); Red Blood Count 3.91 M/mm3 (4.2-5.4); White Blood Count 21.9 K/mm3 (4.4-11.0)
[2023-11-10 20:43] LABS: Bacteria 0 SEEN /hpf (None Seen); Mucous, Urine 0 SEEN /hpf (<or=2+); Red Blood Cells-Urine 0 SEEN /hpf (0-5); Squamous Epithelial Cells - UA 0 SEEN /hpf (5-10)
[2023-11-10 20:47] LABS: Differential Indicated SCAN CRITERIA MET
[2023-11-10 20:51] LABS: Color, Urine Yellow (Yellow); Glucose, Dipstick Normal (Normal); Ketone-Dipstick Negative (Negative); Leukocyte Esterase-Dipstick 500 /ul (Negative); Nitrite-Dipstick Negative (Negative); Occult Blood-Urine 150 /ul (Negative); Protein-Dipstick 100 mg/dl (Negative); Urine Bilirubin Dipstick Negative (Negative); Urine Clarity Cloudy (Clear); Urine Urobilinogen Normal (Normal); Urine pH 6.5 (5.0 - 8.0)
[2023-11-10] MEDS: 0.9% Normal Saline (1000mL) 1,000 ML 1000 ML IV (20:51)
[2023-11-10 20:57] LABS: ALB/GLOB Ratio 0.4 RATIO (0.9-2.4); AST(SGOT) 13 U/L (15-37); Alanine Aminotransfer ALT/SGPT 11 U/L (13-56); Albumin, Serum 2.5 g/dL (3.2-5.0); Alkaline Phosphatase 112 U/L (45-117); Anion Gap 10 (5-15); BUN 15 mg/dL (7-18); BUN/Creat Ratio 6.2 RATIO (10-20); Calcium,Total 7.6 mg/dL (8.5-10.1); Chloride 110 mmol/L (98-107); EST Glomerular Filtration Rate 21 mL/min (>60); Est Glom Filt Rate - Afr Amer 26 mL/min (>60); Estimated Creatinine Clearance 21.69 ml/min; Globulin 5.8 g/dL (2.2-4.2); Glucose 111 mg/dL (74-106); Potassium 3.6 mmol/L (3.5-5.1); Protein, Total 8.3 g/dL (6.4-8.2); Sodium Level 139 mmol/L (136-145)
[2023-11-10 21:00] LABS: White Blood Cells >100 SEEN /hpf (0-5)
[2023-11-10 21:03] LABS: Lactic Acid 1.9 mmol/L (0.4-1.9)
--- NOTE | 2023-11-10 21:04 | EX.ED.DYSGE1 ---
HPI History of Present Illness Chief Complaint: General Illness Informant: patient Onset/Context/Timing Onset: Today Context: Gradual Onset Timing: Continuous Current Severity: Mild Maximum Severity: Mild Narrative Narrative: 73-year-old female history of chronic kidney disease previously was on dialysis now is off dialysis. She has bilateral ureteral stents. Gets recurrent UTIs. Has been septic in the past. Was seen the other day. Diagnosed with a UTI and started on cephalexin. States today she had a temperature of 99.7 with some chills beginning yesterday was concerned she may be becoming septic and came in to be evaluated. She denies vomiting. She has had some mild loose stools. No significant cough. No shortness of breath. No significant abdominal pain. Prior similar symptoms: Yes Recent Illness/Hospitalization: Yes PFSH PFSH Medical History Acute diarrhea LULY (acute kidney injury) Asthma Dunbar's palsy Bilateral hydronephrosis Bladder disease Blood disorder Bruising Cancer Cardiology follow-up encounter Cervical cancer Chronic renal failure, stage 4 (severe) Dialysis patient Easy bruising Essential hypertension Former smoker Gout High anion gap metabolic acidosis History of biliary stent insertion History of cervical cancer History of Clostridium difficile infection History of COVID-19 History of irregular heartbeat History of renal disease Hx of cataract Hx of echocardiogram Hx of vertigo Hyperlipidemia Hypertension Hypokalemia Hyponatremia Kidney disease Leg cramps Lymphocytosis Mild intermittent asthma MRSA infection Near syncope Problem with dialysis access Sepsis Status post placement of implantable loop recorder (~03/29/20) Thyroid disease Urinary incontinence UTI (urinary tract infection) Wears dentures Home Medications albuterol sulfate 90 mcg/actuation aerosol inhaler (Ventolin HFA) 2 puff inhalation Q6H PRN Sob &/Or Wheezing 07/25/18 [History Last Taken 11/10/23] potassium chloride 20 mEq tablet,extended release(part/cryst) 20 meq PO DAILY supplement 09/01/20 [History Last Taken 11/10/23] amlodipine 2.5 mg tablet 2.5 mg PO DAILY BP #90 tabs 08/12/21 [Rx Last Taken 11/10/23] ipratropium bromide 42 mcg (0.06 %) nasal spray 2 spray intranasal DAILY allergie 11/23/21 [History Last Taken 11/10/23] pantoprazole 40 mg tablet,delayed release 40 mg PO DAILY GERD 03/27/23 [History Last Taken 11/10/23] cephalexin 500 mg capsule 500 mg PO Q6H UTI #40 caps 09/22/23 [Rx Last Taken 11/10/23] cephalexin 500 mg capsule 500 mg PO Q6 #20 CAPSULES 11/06/23 [Rx Last Taken Unknown] Allergy/AdvReac Type Severity Reaction Status Date / Time clindamycin Allergy Severe unsure of Verified 11/10/23 20:07 reaction pravastatin Allergy Severe Chest Verified 11/10/23 20:07 tightness procaine [From Novocain] Allergy Severe NEEDS Verified 11/10/23 20:07 FOLLOW-UP sulfamethoxazole Allergy Severe Shortness Verified 10/09/23 13:34 [From Bactrim] of breath trimethoprim [From Bactrim] Allergy Severe Shortness Verified 11/10/23 20:07 of breath levofloxacin [From Levaquin] Allergy UNSURE OF Verified 11/10/23 20:07 REACTION [id number] Reductase Allergy Anaphylaxis Verified 11/10/23 20:07 Inhibitor methylprednisolone AdvReac Severe Pain in Verified 11/10/23 20:07 joints Family History Father , 32 yrs old CAD (coronary artery disease) History of coronary artery bypass surgery Mother Cancer Lung CA, Hx tobacco use. Surgical History History of arteriovenostomy for renal dialysis (~09/2021) History of cardiac catheterization (~01/08/18) History of cardiac catheterization History of cholecystectomy History of excision of mass History of hysterectomy History of loop recorder history of radium implant Hx of cystoscopy S/P arteriovenous (AV) fistula creation Social History household members: spouse and children number of children: 6 current occupational status: retired history of recent travel: No Smoking Status: Former smoker second hand exposure: No alcohol intake: never substance use type: does not use what type of physical activity do you participate in: walking saurabh/yazdanism: Non-Mormonism/Independent seatbelt use: always do you feel safe at home: Yes additional social history: - Fernando ROS ROS ED ROS Narrative Low-grade temperature. Chills. No stools. Review of Systems ROS Unobtainable: Denies due to encephalopathy Constitutional Constitutional ED: Reports chills, fever(s) and subjective Eyes Eyes: Denies blurry vision ENT ENT ED: Denies ear pain Cardiovascular Cardiovascular: Denies chest pain Respiratory/Chest Respiratory/Chest: Denies cough or dyspnea Gastrointestinal Gastrointestinal: Reports diarrhea; Denies abdominal pain, constipation, melena, nausea or vomiting Genitourinary Genitourinary ED: Denies dysuria or hematuria Musculoskeletal Musculoskeletal: Denies arthralgias Integumentary Denies abscess Neurologic Neurologic: Denies headache(s) Psychiatric Psychiatric: Denies anxiety or depression Endocrine Endocrinology: Denies cold intolerance Hematologic/Lymphatic Hematologic/Lymphatic: Reports none Allergic/Immunologic Allergic/Immunologic ED: Denies mouth swelling, tongue swelling or urticaria EXAM Physical Exam Narrative Exam Narrative: 73-year-old female no acute distress. Vital signs are stable. Currently afebrile. Heart rate 140. Blood pressure 121/73. Pulse ox 97% on room air no hypoxia. H EENT exam unremarkable. Neck nontender. Lungs clear to auscultation bilaterally. Heart tachycardic no murmur. Chest wall nontender. Abdomen soft nontender. Nondistended normal bowel sounds without peritoneal signs. Moving all 4 extremities. Calves are nontender without edema or cords. Neurologically she is awake alert with no focal motor deficits. Const Vital Signs: 11/10/23 20:04 Temperature 97.2 F L Temperature Source Temporal Pulse Rate 140 H Respiratory Rate 16 Blood Pressure 121/73 H Blood Pressure Mean 89 Pulse Ox 97 Oxygen Delivery Method Room Air Positive well nourished and well developed; Negative for cachectic, contractures or unkempt General Appearance ED: well developed and NAD; Negative for unkempt, cachectic, contractures, cyanotic, diaphoretic or pallor Nutritional Appearance: Negative for cachectic HEENT Reports moist mucous membranes; Denies dry mucous membranes Negative for trauma or tenderness Mouth ED: No dry mucous membranes Mouth: No dry mucous membranes Eyes PERRL and EOMs intact bilaterally General Eye ED: Negative for pale conjunctiva or scleral icterus Neck no lymphadenopathy, supple and no JVD General: Negative for tenderness Chest Wall inspection of chest normal and palpation of chest normal Chest: Negative for other Resp normal respiratory effort and clear to auscultation bilaterally Effort and Inspection: Negative for retractions Auscultation: Negative for rales, rhonchi or wheezes Cardio regular rhythm, S1 normal heart sound, S2 normal heart sound and no murmurs; Negative for regular rate Rate: tachycardic GI normal to inspection, nondistended, normoactive bowel sounds, non-tender, non-distended and no masses Auscultation: normoactive bowel sounds Palpation: Negative for tender, guarding, mass or rebound tenderness present Back/Spine no CVA tenderness General Back: Negative for CVA tenderness Cervical Spine: Negative for cervical spine tenderness Thoracic Spine / Upper Back: Negative for thoracic spinal tenderness or paraspinal muscle tenderness Lumbar Spine / Lower Back: Negative for lumbar spinal tenderness Extremity normal to inspection General Extremety ED: Negative for edema or tenderness General Extremity: Negative for edema Neuro oriented x3 and CN's II-XII intact bilaterally Sensorium / Orientation: alert; Negative for orientation impaired, lethargic or stuporous Motor Exam: strength 5/5 throughout Psych mental status grossly normal Appearance: Negative for unkempt Attitude: No agitated Mood & Affect: Negative for depressed, anxious or tearful Skin no rashes or lesions noted, no wounds and skin turgor normal General Skin Exam: elasticity normal; Negative for jaundice or pallor Lesions: No lesion noted Rashes: No rashes noted Trauma: Negative for abrasion Wounds: Negative for wounds noted MDM MDM MDM Narrative Medical decision making narrative: 73-year-old female recent UTI history of prior sepsis from UTIs. Presents due to low-grade fever and concerned she might be becoming septic again. Rizwan exam patient doing well. At 9:10 PM. Given her history of UTI developing urosepsis. I plan on admitting her. Give her a dose of IV Rocephin. Speak to the hospitalist about admission. Clinically she is stable and her vital signs are stable. History & Record Review Discussion w/independent historian: Patient and Family Additional record(s) reviewed:: Prior inpatient record, Prior outpatient record, Prior ED visit and Prior labs Lab Data Attestation: I reviewed the patient's lab results. Lab results narrative: CBC elevated 21.9. Higher than the most recent lab. H&H 12.3 and 38. No bands. Platelets 408. Electrolytes show a gap of 10. BUN of 15 creatinine 2.4 which is a history of chronic kidney disease and has had creatinines much higher than this. Liver enzymes unremarkable. Lactic acid 1.9. Urinalysis shows greater than 100 white cells. Currently no bacteria. Negative nitrites. Labs: Laboratory Results - last 24 hr 11/10/23 11/10/23 20:15 20:25 WBC 21.9 H RBC 3.91 L Hgb 12.3 Hct 38.3 MCV 98.0 MCH 31.5 MCHC 32.1 RDW Std Deviation 54.4 H RDW Coeff of [place] 15.4 H Plt Count 408 MPV 10.2 Immature Gran % (Auto) 0.600 Neut % (Auto) 56.4 Lymph % (Auto) 36.1 [place] % (Auto) 5.9 Eos % (Auto) 0.6 Baso % (Auto) 0.4 Absolute Neuts (auto) 12.4 H Absolute Lymphs (auto) 7.90 H Nucleated RBC % 0.1 Sodium 139 Potassium 3.6 Chloride 110 H Carbon Dioxide 19.0 L Anion Gap 10 BUN 15 Creatinine 2.40 H Estim Creat Clear Calc 21.69 Est GFR (MDRD) Af Amer 26 L Est GFR (MDRD) Non-Af 21 L BUN/Creatinine Ratio 6.2 L Glucose 111 H Lactic Acid 1.9 Calcium 7.6 L Total Bilirubin 0.80 AST 13 L ALT 11 L Alkaline Phosphatase 112 Total Protein 8.3 H Albumin 2.5 L Globulin 5.8 H Albumin/Globulin Ratio 0.4 L Urine Color Yellow Urine Clarity Cloudy Urine pH 6.5 Ur Specific [place] 1.010 Urine Protein 100 H Urine Glucose (UA) Normal Urine Ketones Negative Urine Occult Blood 150 H Urine Nitrite Negative Urine Bilirubin Negative Urine Urobilinogen Normal Ur Leukocyte Esterase 500 H Urine RBC 0 SEEN Urine WBC >100 SEEN Ur Squamous Epith Cells 0 SEEN Urine Bacteria 0 SEEN Urine Mucus 0 SEEN Discharge Plan Triage Chief Complaint: General Illness ED Provider: [place] Dx/Rx/DC Orders Prescriptions: No Action albuterol sulfate [Ventolin HFA] 90 mcg/actuation HFA aerosol inhaler 2 puff INHALATION Q6H PRN (Reason: Sob &/Or Wheezing) pantoprazole 40 mg tablet,delayed release (DR/EC) 40 mg PO DAILY Hold Instructions: Order Completed potassium chloride 20 MEQ tablet,ER particles/crystals 20 meq PO DAILY ipratropium bromide 42 mcg (0.06 %) spray,non-aerosol 2 spray INTRANASAL DAILY cephalexin 500 mg capsule 500 mg PO Q6H Qty: 40 0RF cephalexin [cephalexin] 500 mg capsule 500 mg PO Q6 Qty: 20 0RF amlodipine 2.5 mg tablet 2.5 mg PO DAILY Qty: 90 3RF Primary Care Provider: Gerardo García Chi Referrals: Gerardo García Chi, MD [Primary Care Provider] -
[2023-11-10 21:15] LABS: Differential Comment SCANNED
--- OUTSIDE RECORDS SUMMARY | 2023-11-10 21:55 | XMS RPT_ITS | CCD ---
Author Name Unknown Address [id number] [place] [address] Organization [facility] Care Team Providers Care Marble Installation Helper Name Role Phone MARIOLA PARADA (RES) Unavailable Unavailable MARINA MONTANA (PA-C) Unavailable Unavailable MARIOLA PARADA Unavailable Unavailable ELVI, SUZI-CHI Unavailable Unavailable Elvi, Suzi Chi Primary Care Provider Luz Maria Matthews MD Unavailable [phone] BELINDA JETT Referring Unavailable ELVI, SUZI CHI Primary Care Unavailable SARAH CHILDERS Admitting Unavailable EMY DAVIS Consulting Unavailabl DARIUS Freeman Attending Unavailable Allergies Allergy Classification Reported Allergen(s) Allergy Type Date of Onset Reaction(s) Facility (4 sources) pravastatin; Translations: [PRAVASTATIN] Drug Allergy 5 Intolerance [facility] Repository (4 sources) predniSONE; Translations: [PREDNISONE] Drug Allergy 5 Unknown [facility] Repository (4 sources) sulfamethoxazol e; Translations: [SULFAMETHOXAZO LE] Drug Allergy 5 Shortness of Breath [facility] Repository (4 sources) INFLUENZA VIRUS VACCINES; Translations: [INFLUENZA VIRUS VACCINES] Propensity to adverse reactions to drug (disorder) 5 Unknown [facility] Repository Medications Completed/Discontinued Medications Medication Drug Class(es) Dates Sig (Normalized) Sig (Original) Albuterol (1 source) beta2-Adrenergic Agonist take 1 spray(s) by inhalation every four hours as needed ALBUTEROL SULFATE (VENTOLIN INHALATION) Inhale 1 [place] as instructed every 4 hours as needed. 0 Active Problems Active Problems Problem Classification Problem Date Documented Da te Episodic/Chronic Acute and unspecified renal failure (2 sources) Acute injury of kidney; Translations: [Acute kidney failure, unspecified] Onset: 10-10-2023 10-10-2023 Episodic Asthma (1 source) Asthma; Translations: [Unspecified asthma, uncomplicated] Onset: 01-04-2015 10-10-2023 Chronic Cataract (1 source) Hypermature senile cataract; Translations: [Age-related cataract, morgagnian type, unspecified eye] Onset: 01-04-2015 01-04-2015 Chronic Diseases of white blood cells (1 source) Leukocytosis; Translations: [Elevated white blood cell count, unspecified] Onset: 10-10-2023 10-10-2023 Chronic Disorders of lipid metabolism (1 source) Hypercholesterolemia ; Translations: [Pure hypercholesterolemia , unspecified] Onset: 01-04-2015 10-10-2023 Chronic Essential hypertension (1 source) Essential hypertension; Translations: [Essential (primary) hypertension] Onset: 01-04-2015 10-10-2023 Chronic Fluid and electrolyte disorders (1 source) Dehydration; Translations: [Dehydration] Onset: 06-11-2018 Episodic Other diseases of kidney and ureters (1 source) Bilateral hydronephrosis ; Translations: [Unspecified hydronephrosis] Onset: 10-10-2023 10-10-2023 Episodic Other gastrointestinal disorders (1 source) Diarrhea; Translations: [Diarrhea, unspecified] Onset: 10-10-2023 10-10-2023 Episodic Syncope (1 source) Syncope and collapse; Translations: [Syncope and collapse] Onset: 06-11-2018 Episodic Unclassified (1 source) Unknown / UNK(Unknown) Onset: 06-11-2018 Urinary tract infections (2 sources) Acute cystitis without hematuria; Translations: [Recurrent urinary tract infection] Onset: 06-11-2018 10-10-2023 Episodic Past or Other Problems Problem Classification Problem Date Documented Da te Episodic/Chronic Blindness and vision defects (2 sources) Regular astigmatism; Translations: [Regular astigmatism, unspecified eye] Onset: 01-04-2015 01-04-2015 Episodic Conditions associated with dizziness or vertigo (2 sources) Dizziness and giddiness; Translations: [Dizziness and giddiness] Onset: 06-11-2018 Episodic Results Test Name Value Interpretation Reference Range Facil ity Encounters Encounter Date Encounter Type Care Provider Facility Start: 10-22-2023 Telephone encounter Andres salgado MD Work Phone: Urology Procedures Date Procedure Procedure Detail Performing Clinician Start: 08-12-2015 History of cataract extraction S/P laser cataract surgery Andres Wyatt MD Work Phone: Plan of Treatment Date Care Activity Detail Author Start: 10-12-2026 Diabetes Screening Diabetes Screenin g [facility] Start: 07-20-2023 Covid-19 Vaccine () Covid-19 Vaccine () [facility] Start: 07-20-2023 Influenza vaccination Influenza Vacc ine (#1) [facility] Start: 11-19-2022 Advance Directive Discussion Advance Directive Discussion [facility] Start: 11-19-2022 Depression Assessment Depression Ass essment [facility] Start: 12-29-2020 Pneumococcal Vaccine : 65+ (2 - PCV) Pneumococcal Vaccine: 65+ (2 - PCV) [facility] Start: 2017 Bone Density Screening Bone Density Screening [facility] Start: 2012 RSV Vaccine (1 - 1-d ose 60+ series) RSV Vaccine (1 - 1-dose 60+ series) [facility] Start: 2002 Shingrix Vaccine (1 of 2) Shingrix V accine (1 of 2) [facility] Start: 1997 Cologuard (FIT-DNA) Cologuard (FIT-D NA) [facility] Start: 1997 Colonoscopy Colonoscopy [facility] Start: 1997 Colorectal Cancer Screening Colorectal Cancer Screening [facility] Start: [address] Colonography [facility] Start: 1997 Fecal Occult Blood Fecal Occult Bloo d [facility] Start: 1997 Lipid 1996 panel - S ela or Plasma Lipid Screening [facility] Start: 1997 Sigmoidoscopy Sigmoidoscopy [facility] Start: 1992 Mammography Mammogram Screening [facility] Start: 1971 Urine microalbumin profile DTa P,Tdap,Td Vaccine (1 - Tdap) [facility] Start: 1970 Annual PCP Team [place] jsoe Disease Visit Annual PCP Team Chronic Disease Visit [facility] Start: 1970 BP Controlled (<130/80) BP Controlle d (<130/80) [facility] Start: 1970 Hepatitis C Screening Hepatitis C Isacc acevedo [facility] Start: 1970 Spirometry Spirometry [facility] Immunizations Immunization Date Immunization Notes Care Provider Gary telles 08-09-2021 influenza virus vacc ine, unspecified formulation Andres Wyatt MD Work Phone: [facility] Payers Date Payer Category Payer Medicare HU[employer]NA MEDICARE HU[employer]NA GOLD PLUS [id number] 2019-Present [phone] [address] [address] [place] [address] HMO [id number] 2019 Private Health Insurance [id number] 1950 Unknown [id number] Medicare [id number] Social History Date Type Detail Facility Start: 01-04-2015 Tobacco smoking status NHIS Ex-smoke r [facility] End: 01-04-2008 History of tobacco use Current smoker [facility] End: 01-04-2008 History of tobacco use Cigarette Smoker [facility] Start: 01-04-2015 Tobacco use and exposure Smoke less tobacco non-user [facility] Start: 10-10-2023 End: 10-11-2023 History of Social function [facility] Start: 10-10-2023 End: 10-11-2023 Tobacco use panel [facility] How hard is it for y ou to pay for the very basics like food, housing, medical care, and heating Not very hard [facility] (I/We) worried wheth er (my/our) food would run out before (I/we) got money to buy more. Never true [facility] In the past 12 month s, has lack of transportation kept you from medical appointments or from getting medications? No [facility] In the past 12 month s, was there a time when you were not able to pay the mortgage or rent on time? No [facility] Start: 1950 Sex Assigned At Not on file [facility] Medical Equipment Procedure Code Equipment Code Equipment Origin al Text Equipment Identifier Dates Set 6fr .038in 2 Pigtail Curve Filiform Black Stainless Steel Vinyl - [id number] Start: 10-11-2023 Note 10-22-2023 Telephone Encounter - SigridRabiahazelgilmamel Princess - 10/22/2023 2:00 PM EST Note Date & Type Note Facility 10-22-2023 Miscellaneous Notes Formattin g of this note might be different from the original. Pt had stent placed on 10/11 how to proceed? Berna Sánchez Sigrid documented in this encounter [facility] Progress note 10-12-2023 Note Date & Type Note Facility 10-12-2023 Note HNO ID: [id number] Author: Darius Moffett MD Service: General Internal Medicine Author Type: Physician Type: Progress Notes Filed: 10/13/2023 5:08 PM Note Text: Documentation Query Based on your medical judgment of the clinical indicators outlined below, please clarify the condition: (Please type X next to your response and sign) Clinical Indicators: 10/10/23 04:13 10/11/23 03:29 Magnesium 1.2 1.6 Treatment: 10/10/23 magnesium sulfate iv piggyback in sterile water 2 g 50 mL Please clarify the diagnosis associated with the above clinical indicators: x Hypomagnesemia Other, please specify [facility] Progress note 10-12-2023 Note Date & Type Note Facility 10-12-2023 Note HNO ID: [id number] Author: Andres Wyatt MD Service: Urology Author Type: Physician Type: Progress Notes Filed: 10/12/2023 11:40 AM Note Text: UROLOGY INPATIENT PROGRESS NOTES SERVICE DATE: 10/12/2023 SERVICE TIME: Subjective CHIEF COMPLAINT: INTERVAL HPI: The patient is doing quite well feeling better today. Her creatinine is improved from 4.9-3.1. Her urine culture is next. She is status post bilateral stent exchange yesterday. Current Facility-Administered Medications Medication Dose Route Frequency NaCl 0.9% iv infusion 150 mL/hr INTRAVENOUS CONTINUOUS NaCl 0.9% iv flush bag 20 mL INTRAVENOUS PRN ondansetron 4 mg tab(s) (ZOFRAN) 4 mg ORAL q 6 H PRN Or ondansetron (PF) 4 mg injection (ZOFRAN) 4 mg INTRAVENOUS q 6 H PRN aluminum-magnesium hydroxide-simethicone 200-200-20 mg/5 mL 30 mL 30 mL ORAL DAILY PRN polyethylene glycol 3350 17 g packet 17 g ORAL DAILY PRN acetaminophen 650 mg tab(s) (TYLENOL) 650 mg ORAL q 6 H PRN melatonin 1 mg tab(s) 1 mg ORAL AT BEDTIME PRN amLODIPine 2.5 mg tab(s) (NORVASC) 2.5 mg ORAL DAILY Objective PHYSICAL EXAM: Temp (24hrs), Av.8 ?C (98.3 ?F), Min:36.7 ?C (98.1 ?F), Max:37 ?C (98.6 ?F) Date 10/12/23 0700 - 10/13/23 0659 Shift 6781-0451 6380-9700 2075-3119 24 Hour Total INTAKE PO 360 360 Shift Total 360 360 OUTPUT Shift Total Weight (kg) 81.8 81.8 81.8 81.8 Upon exam-soft nontender DATA: Diagnostic tests reviewed for today's visit: Most recent labs and imaging results. Recent Labs 10/12/23 0427 WBC 11.69* HB 8.4* HCT 25.9* NA 149* K 3.4* CHLOR 125* CO2 12* BUN 25 CREAT 3.11* GLUC 50* Assessment/Plan Principal Problem: LULY (acute kidney injury) (HCC) (POA: Yes) Assessment AND Plan: This is improving creatinine 3.1 status post bilateral stent exchange Active Problems: Bilateral hydronephrosis (POA: Yes) Assessment AND Plan: Postop day 1 status post bilateral exchange Recurrent UTI (POA: Unknown) Assessment AND Plan: Possible low-grade UTI. Resolved Problems: * No resolved hospital problems. * Medication and Non-Pharmacologic VTE Prophylaxis/Anticoagulants 10/10/23 0015 activity - mobilize patient (fl,oh) VTE Prophylaxis: VTE prophylaxis appropriate SIGNATURE: Andres Wyatt MD PATIENT NAME: Linda Delong DATE: October 12, 2023 TIME: 11:38 AM [facility] Progress note 10-11-2023 Note Date & Type Note Facility 10-11-2023 Note HNO ID: [id number] Author: Darius Moffett MD Service: General Internal Medicine Author Type: Physician Type: Progress Notes Filed: 10/11/2023 5:25 PM Note Text: INTERNAL MEDICINE PROGRESS NOTE SERVICE DATE: 10/11/2023 SERVICE TIME: 5:15 PM SUBJECTIVE: Patient has b/l stent replaced today. Complaints of diarrhea but denies abdominal pain, fevers OBJECTIVE: VITAL SIGNS: BP 140/75 Pulse 87 Temp (Src) 98.1 (Oral) Resp 18 Ht 5' 8 (1.73m) Wt 184 lb (83.5kg) SpO2 98% BMI 27.98 kg/(m2). O2 Therapy: Room Air PHYSICAL EXAM: Physical Exam Performed: GENERAL: [Patient is a moderately built lying in bed not in apparent distress.] HEAD: [Atraumatic, normocephalic.] NECK: [Supple, no lymphadenopathy.] CARDIOVASCULAR: [S1-S2 audible, no murmurs.] RESPIRAORY: [Bilateral air entry present. No significant rales or wheezing noted.] ABDOMIN: [Soft, nontender, bowel sounds appreciated.] EXTREMITIES: [No edema, pulses palpable bilaterally.] SKIN: [Clear, no evidence of bleeding.] TYPEWRITER RIBBON WINDER: [Patient awake, alert, oriented ?3. No focal neurological deficits. ] PSYCHIATRIC: [Normal mood and affect. Patient not in apparent distress.] DATA: Diagnostic tests reviewed for today's visit INPATIENT MEDICATIONS: Current Facility-Administered Medications Medication Dose Route Frequency NaCl 0.9% iv infusion 150 mL/hr INTRAVENOUS CONTINUOUS NaCl 0.9% iv flush bag 20 mL INTRAVENOUS PRN ondansetron 4 mg tab(s) (ZOFRAN) 4 mg ORAL q 6 H PRN Or ondansetron (PF) 4 mg injection (ZOFRAN) 4 mg INTRAVENOUS q 6 H PRN aluminum-magnesium hydroxide-simethicone 200-200-20 mg/5 mL 30 mL 30 mL ORAL DAILY PRN polyethylene glycol 3350 17 g packet 17 g ORAL DAILY PRN acetaminophen 650 mg tab(s) (TYLENOL) 650 mg ORAL q 6 H PRN melatonin 1 mg tab(s) 1 mg ORAL AT BEDTIME PRN cefTRIAXone 1 g in D5W 100 mL Vial-Bag (ROCEPHIN) 1 g INTRAVENOUS q 24 H amLODIPine 2.5 mg tab(s) (NORVASC) 2.5 mg ORAL DAILY ASSESSMENT AND PLAN: Bilateral hydronephrosis AND LULY Presents as a direct admission from [facility] after she presented with abnormal labs and lack of urology coverage She has a history of radiation in her early 30s for cervical cancer and approximately a year ago began having every 3 month stent changes for bilateral ureteral obstruction likely due to the radiation. CT of the abdomen and pelvis demonstrated bilateral severe hydronephrosis with cortical thinning similar on the right and mildly increased on the left compared with previous exam with similar perinephritic stranding. Bilateral double-J ureteral stents are present. s/p cystoscopy and b/l stent exchange on 10/11/22 Diarrhea She has on AND off for past few days, C. Difficile negative She does not look toxic, do not believe it is infection related, will watch her off med Will dc antibiotics-ceftriaxone as it may be related to it Chronic conditions: Stable Hypertension High cholesterol Asthma -Resume chronic home medications DVT: S/c Heparin Code: Full SIGNATURE: Darius Moffett MD PATIENT NAME: Linda Delong DATE: 10/11/2023 TIME: 5:15 PM [facility] Clinical Note 10-10-2023 Note Date & Type Note Facility 10-10-2023 Note HNO ID: [id number] Author: Viri Eubanks RN Service: Care Management Author Type: Registered Nurse Type: Care Mgt Initial Assessment Filed: 10/10/2023 1:31 PM Note Text: CARE MANAGEMENT: ASSESSMENT AND DISCHARGE PLAN SERVICE DATE: October 10, 2023 SERVICE TIME: 1:18 PM PCP: Suzi García MD saw on Sunday10/08/23 Primary Contact: Extended Emergency Contact Information Primary Emergency Contact: Lloyd Delong Address: [address] [place] [id number] Relation: Spouse Secondary Emergency Contact: Lily Frey Relation: Daughter Admission Status: Inpatient Insurance Provider: [employer] Discharge Planning requested by: Patient Potential Transition Plans No Services Indicated;Home Advance Directives Current Advance Directive: None Carbonator Attempted to Assist with AD Completion: Yes Action: Education Provided Current Living Arrangements and Support Lives with: Children Type of Residence: Private Residence (House) Does the patient have to climb stairs at home?: Yes;stairs outside the home;stairs within the home (15 steps inside the home) Support: Family members, Children How do you manage to accomplish the following: Independent: Ambulation;Bathe/Shower;Dress;Meals/Meal Prep;Going to the bathroom;Medication Management Needs Assistance: Transportation to appointments/community Current Services/Equipment Current Post-Acute Service(s): None Discharge Planning Patient Goal(s): Be able to go home, General wellness [place] Choice Explained: [place] Given: No Reason Not Given: No placements necessary Are you interested in bedside delivery of your medications? No Discharge Planning Participant(s): Patient Patient/Family Comments: Caregiver Assessment: Caregiver is ready, willing and able to meet the patient's needs as recommended by the inter-professional team: No Caregiver needed Transport at Discharge: Transportation Arrangements: Car Destination: Home Needs Prior to Discharge: Post-Acute Discharge Plan: CHART REVIEWED: IV antibiotics, Urology Consult, Monitoring labs, Possible C-Diff. Admission as a transfer from [facility] for Acute kidney injury in setting of bilateral hydronephrosis. chronic indwelling Roberts cat creatinine 4.7 from the baseline 2-2.3, CT scan of the abdomen and pelvis at [facility] showed bilateral hydronephrosis worsening on the left side. Discharge plan to return to home. Her and her daughter, Lily and 2 Granddaughters live with her. She is independent does not drive but family does. She denies any DME or services, does have grab bars in the home. Family will transport back home. AD forms given. Will continue to follow. PCP: Suzi García MD saw on Sunday10/08/23 SIGNATURE: Viri Eubanks RN PATIENT NAME: Linda Delong DATE: October 10, 2023 TIME: 1:18 PM CONTACT #: [phone] [facility] History of Past illness Narrative 08-30-2015 Note Date & Type Note Facility documented as of this encounter (statuses as of 10/23/2023) [facility] Summary Purpose Family History No Family History Records FoundNo Family History Records FoundNo Family History Records Found Advance Directives No Advanced Directives Records FoundLatest Code Status on File Code Status Date Activated Date Inactivated Comments Full Code 10/10/2023 12:13 AM 10/12/2023 4:32 PM Question Answer Comments Full Code Order Discussed With: Patient Additional Source Comments INFORMATION SOURCE (unrecogn ized section and content) DATE CREATED AUTHOR AUTHOR'S ORGANIZ ATION 11/10/2018 [facility] DATE CREATED AUTHOR AUTHOR'S ORGANIZ ATION 10/30/[address] [facility] Ce nter Source Comments (unrecognize d section and content) In the event this informatio n is protected by the Federal Confidentiality of Alcohol and Drug Abuse Patient Records regulations: The Federal rules restrict any use of the information to criminally investigate or prosecute any alcohol or drug abuse patient.[facility] Reason for Visit (unrecogniz ed section and content) Care Teams (unrecognized sec tion and content) FOR RECORDS PERTAINING TO PATIENTS WHO ARE OR HAVE BEEN ENROLLED IN A CHEMICAL DEPENDENCY/SUBSTANCEABUSE PROGRAM, SOME INFORMATION MAY BE OMITTED. This clinical summary was aggregated from multiple sources. Caution should be exercised in using it in the provision of clinical care. This summary normalizes information from multiple sources, and as a consequence, information in this document may materially change the coding, format and clinical context of patient data. In addition, data may be omitted in some cases. CLINICAL DECISIONS SHOULD BE BASED ON THE PRIMARY CLINICAL RECORDS. [facility] [employer]. provides no warranty or guarantee of the accuracy or completeness of information in this document.
[2023-11-10] MEDS: Ceftriaxone 1 GM/50 ML BAG IV (21:56)
[2023-11-10 21:58] VITALS: BP 126/54; PULSE 76; RESP 16; TEMP 36.8; O2SAT 94
[2023-11-10 22:00] VITALS: BP 126/54; PULSE 76; RESP 16; TEMP 36.8; O2SAT 94
--- NOTE | 2023-11-10 22:21 | PCM.HP.STD ---
[facility] - General General Date of Admission: 11/10/23 Date of Service: 11/10/23 Chief Complaint: Worsening UTI in spite of Keflex HPI Narrative TODD DELONG, is a 73 F with a past medical history of essential hypertension, hyperlipidemia (with history of anaphylaxis to statins), hypothyroidism, chronic kidney disease stage IIIb-IV; with history of atriovenostomy for renal dialysis in September 2021, history of multidrug-resistant UTI's with sepsis due to Pseudomonas requiring treatment with IV Merrem, multiple listed antibiotic allergies to Bactrim, Levaquin and clindamycin, history of bilateral hydronephrosis; requiring double-J stent catheters, history of MRSA, history of tobacco abuse, history of COVID-pneumonia (2019), history of mild intermittent asthma, history of cervical cancer, history of atrophic vaginitis, history of biliary stent, history of Dunbar's palsy, history of vertigo, gout, history of admission here approximately 8 weeks ago from August 02, 2023 to August 07, 2023 for UTI secondary to multidrug-resistant Pseudomonas complicated by hydronephrosis with ureteral stents placed by urology which required PICC line placement for IV antibiotics plus another admission here from September 20, 2023 to September 22, 2023 for UTI with acute kidney injury in the setting of chronic kidney disease stage IV with patient then once again having been recently diagnosed with another UTI a few days ago for which she was started on oral Keflex who presents to [facility] complaining of worsening UTI and spite of Keflex. Ms. Delong reports her symptoms began approximately 1 day prior to admission with dysuria and chills that have been harbingers of her previous bouts of sepsis. She also admits to a temperature of 99.7 with some nausea and loose stools but she denies vomiting, shortness of breath or abdominal pain. In the ER her urinalysis was positive for acute cystitis; without hematuria complicated by leukocytosis of 21.9 present on admission and sinus tachycardia 140 bpm with low-grade temperature worrisome for underlying recurrent sepsis in the setting of failure of outpatient antibiotic treatment with oral Keflex and she was then then admitted to the general medical floor with telemetry monitoring for treatment under the sepsis protocol for a stay that is expected to be greater than 48 hours. [facility] Medical History Acute diarrhea LULY (acute kidney injury) Asthma Dunbar's palsy Bilateral hydronephrosis Bladder disease Blood disorder Bruising Cancer Cardiology follow-up encounter Cervical cancer Chronic renal failure, stage 4 (severe) Dialysis patient Easy bruising Essential hypertension Former smoker Gout High anion gap metabolic acidosis History of biliary stent insertion History of cervical cancer History of Clostridium difficile infection History of COVID-19 History of irregular heartbeat History of renal disease Hx of cataract Hx of echocardiogram Hx of vertigo Hyperlipidemia Hypertension Hypokalemia Hyponatremia Kidney disease Leg cramps Lymphocytosis Mild intermittent asthma MRSA infection Near syncope Problem with dialysis access Sepsis Status post placement of implantable loop recorder (~03/29/20) Thyroid disease Urinary incontinence UTI (urinary tract infection) Wears dentures Home Medications albuterol sulfate 90 mcg/actuation aerosol inhaler (Ventolin HFA) 2 puff inhalation Q6H PRN Sob &/Or Wheezing 07/25/18 [History Last Taken 11/10/23] potassium chloride 20 mEq tablet,extended release(part/cryst) 20 meq PO DAILY supplement 09/01/20 [History Last Taken 11/10/23] amlodipine 2.5 mg tablet 2.5 mg PO DAILY BP #90 tabs 08/12/21 [Rx Last Taken 11/10/23] ipratropium bromide 42 mcg (0.06 %) nasal spray 2 spray intranasal DAILY allergie 11/23/21 [History Last Taken 11/10/23] pantoprazole 40 mg tablet,delayed release 40 mg PO DAILY GERD 03/27/23 [History Last Taken 11/10/23] cephalexin 500 mg capsule 500 mg PO Q6H UTI #40 caps 09/22/23 [Rx Last Taken 11/10/23] cephalexin 500 mg capsule 500 mg PO Q6 #20 CAPSULES 11/06/23 [Rx Last Taken Unknown] Allergy/AdvReac Type Severity Reaction Status Date / Time clindamycin Allergy Severe unsure of Verified 11/10/23 20:07 reaction pravastatin Allergy Severe Chest Verified 11/10/23 20:07 tightness procaine [From Novocain] Allergy Severe NEEDS Verified 11/10/23 20:07 FOLLOW-UP sulfamethoxazole Allergy Severe Shortness Verified 10/09/23 13:34 [From Bactrim] of breath trimethoprim [From Bactrim] Allergy Severe Shortness Verified 11/10/23 20:07 of breath levofloxacin [From Levaquin] Allergy UNSURE OF Verified 11/10/23 20:07 REACTION Jcpjowf-SLT-GnM Reductase Allergy Anaphylaxis Verified 11/10/23 20:07 Inhibitor methylprednisolone AdvReac Severe Pain in Verified 11/10/23 20:07 joints Family History Father , 32 yrs old CAD (coronary artery disease) History of coronary artery bypass surgery Mother Cancer Lung CA, Hx tobacco use. Surgical History History of arteriovenostomy for renal dialysis (~09/2021) History of cardiac catheterization (~01/08/18) History of cardiac catheterization History of cholecystectomy History of excision of mass History of hysterectomy History of loop recorder history of radium implant Hx of cystoscopy S/P arteriovenous (AV) fistula creation Social History household members: spouse and children number of children: 6 current occupational status: retired history of recent travel: No Smoking Status: Former smoker second hand exposure: No alcohol intake: never substance use type: does not use what type of physical activity do you participate in: walking saurabh/christian: Non-Hoahaoism/Independent seatbelt use: always do you feel safe at home: Yes additional social history: - Fernando PALOMO STACIA Narrative Review of systems: General: Patient does admit to low-grade fever and chills. HENT: Denies headache, denies stuffy nose, denies sore throat EYES: Denies changes in vision Resp: Denies cough, denies shortness of breath Cardiac: Denies chest pain GI: Denies abdominal pain, denies changes in bowel, had some nausea : Patient admits to feeling like she is getting septic similar to her previous admissions. Extremity: Denies swelling Musculoskeletal: Feels somewhat generally weak and unwell Neuro: Denies any numbness/tingling Heme: Denies any bleeding or bruising Skin: Denies rashes or jaundice Psychiatric: No complaints voiced related to uncontrolled anxiety or depression. Endocrine: No polyuria, polydipsia or polyphagia. The rest of the 14 point ROS was negative except for positives in HPI. Vital Signs Vital Signs Vital Signs: 11/10/23 20:04 11/10/23 21:58 11/10/23 22:00 Temperature 97.2 F L 98.3 F 98.3 F Temperature Source Temporal Temporal Pulse Rate 140 H 76 76 Respiratory Rate 16 16 16 Blood Pressure 121/73 H 126/54 H 126/54 H Blood Pressure Mean 89 78 78 Pulse Ox 97 94 94 Oxygen Delivery Method Room Air Room Air Weight Weight: 170 lb 6.677 oz Body Mass Index (BMI) 25.9 Physical Exam Const alert, oriented x3, no apparent distress and average body habitus General Appearance: cooperative HEENT normocephalic, head/scalp atraumatic, hearing grossly normal bilaterally, moist oral mucous membranes and oropharynx normal Eyes PERRL and EOMs intact bilaterally Neck no lymphadenopathy and supple Resp normal respiratory effort, no retractions, no use of accessory muscles and clear to auscultation bilaterally Cardio regular rate and regular rhythm GI normal to inspection, nondistended, normoactive bowel sounds, soft to palpation, non-tender and non-distended Extremity normal to inspection, full ROM and no clubbing, cyanosis or edema Skin Skin Narrative: Patient has no evidence of rash, abrasions or jaundice at this time. Neuro oriented x3, CN's II-XII intact bilaterally, moves all extremities and no focal motor deficits Sensorium / Orientation: awake, alert, oriented to person, oriented to place and oriented to time Speech: speech normal Motor Exam: strength 5/5 throughout Psych affect normal Results Medical Records Data Attestation: I reviewed the patient's medical records Lab / Micro Data Attestation: I reviewed the patient's lab results. 11/10/23 20:25 11/10/23 20:25 Labs: Laboratory Results - last 24 hr 11/10/23 20:15: Urine Color Yellow, Urine Clarity Cloudy, Urine pH 6.5, Ur Specific [place] 1.010, Urine Protein 100 H, Urine Glucose (UA) Normal, Urine Ketones Negative, Urine Occult Blood 150 H, Urine Nitrite Negative, Urine Bilirubin Negative, Urine Urobilinogen Normal, Ur Leukocyte Esterase 500 H, Urine RBC 0 SEEN, Urine WBC >100 SEEN, Ur Squamous Epith Cells 0 SEEN, Urine Bacteria 0 SEEN, Urine Mucus 0 SEEN 11/10/23 20:25: WBC 21.9 H, RBC 3.91 L, Hgb 12.3, Hct 38.3, MCV 98.0, MCH 31.5, MCHC 32.1, RDW Std Deviation 54.4 H, RDW Coeff of [place]wey 15.4 H, Plt Count 408, MPV 10.2, Immature Gran % (Auto) 0.600, Neut % (Auto) 56.4, Lymph % (Auto) 36.1, Young % (Auto) 5.9, Eos % (Auto) 0.6, Baso % (Auto) 0.4, Absolute Neuts (auto) 12.4 H, Absolute Lymphs (auto) 7.90 H, Nucleated RBC % 0.1, Differential Comment SCANNED, Sodium 139, Potassium 3.6, Chloride 110 H, Carbon Dioxide 19.0 L, Anion Gap 10, BUN 15, Creatinine 2.40 H, Estim Creat Clear Calc 21.69, Est GFR (MDRD) Af Amer 26 L, Est GFR (MDRD) Non-Af 21 L, BUN/Creatinine Ratio 6.2 L, Glucose 111 H, Lactic Acid 1.9, Calcium 7.6 L, Total Bilirubin 0.80, AST 13 L, ALT 11 L, Alkaline Phosphatase 112, Total Protein 8.3 H, Albumin 2.5 L, Globulin 5.8 H, Albumin/Globulin Ratio 0.4 L Assessment & Plan Assessment/Plan (1) Acute UTI: (2) Sepsis: QUALIFIERS: Sepsis acute organ dysfunction status: without acute organ dysfunction Sepsis type: sepsis due to unspecified organism Qualified Code(s): A41.9 - Sepsis, unspecified organism (3) Chronic kidney disease: QUALIFIERS: Chronic kidney disease stage: stage 4 (severe) Qualified Code(s): N18.4 - Chronic kidney disease, stage 4 (severe) (4) Leukocytosis: QUALIFIERS: Leukocytosis type: unspecified Qualified Code(s): D72.829 - Elevated white blood cell count, unspecified PLAN: Plan 1. Acute cystitis; without hematuria with leukocytosis of 21.9 present on admission, sinus tachycardia 140 bpm present on admission and fever in the setting of failed outpatient treatment with Keflex - Admit to general medical floor with telemetry monitoring under sepsis protocol. Continue broad-spectrum antibiotics with IV Merrem given patient's extensive allergy profile, and await culture and sensitivity data. Give Tylenol as needed for mild to moderate level 1-5 out of 10 pain or fever. Give morphine IV as needed for severe level 6-10 out of 10 pain. 2. Recent history of admission here approximately 8 weeks ago from August 02, 2023 to August 07, 2023 for UTI secondary to multidrug-resistant Pseudomonas complicated by hydronephrosis with ureteral stents placed by urology which required PICC line placement for IV antibiotics plus another admission here from September 20, 2023 to September 22, 2023 for UTI with acute kidney injury in the setting of chronic kidney disease stage IV multiple listed antibiotic allergies to Bactrim, Levaquin and clindamycin + known history of MRSA complicating #1 - Noted. Patient should be considered for suppressive antibiotics due to pattern of serial readmission. Therefore, we will consult infectious disease see this patient on rounds in the a.m. for further recommendations with help appreciated in advance. 3. Chronic kidney disease stage IIIb-IV; with history of atriovenostomy for renal dialysis in September 2021, history of multidrug-resistant UTI's with sepsis due to Pseudomonas requiring treatment with IV Merrem chronically followed by urology and nephrology - Noted. 4. Essential hypertension - Hold scheduled antihypertensives in light of #1. Give IV hydralazine as needed for systolic blood pressure greater than or equal to 160 mmHg. 5. Hyperlipidemia (with history of anaphylaxis to statins) - Noted. 6. Hypothyroidism - Resume Synthroid as previous. 7. Previous history of tobacco abuse - Noted. 8. History of COVID-pneumonia (2019) - Noted. 9. History of mild intermittent asthma - Stable with no evidence of acute flare at this time. If as needed nebulizers as previous. 10. History of cervical cancer - Noted. 11. History of atrophic vaginitis - Stable. 12. History of biliary stent - Noted. 13. History of Dunbar's palsy- Stable. 14. History of vertigo - Noted. Give Antivert as needed. 15. Chronic gout - Stable no evidence of acute flare. 16. DVT prophylaxis - Lovenox 30 mg sq daily (due to diminished renal function) plus SCD's. Total time: Approximately 55 minutes. Update: Patient was rechecked approximately 4 hours after admission and she was noted to have a normal lactate of 0.9 mmol/L present on admission in the normal range. Her blood pressure has been good and she denies new complaints. RN was updated with plan. Sepsis Attestation Sepsis Attestation: Agree w/Sepsis Date exam was performed: 11/10/23 Time exam was performed: 23:00 Possible Source of Sepsis: Genitourinary Sepsis Organ Dysfunction Criteria Present: Creatinine > 2.0 mg/dL Fluid Resuscitation Fluid resuscitation indicated?: Yes Fluid Resuscitation ordered: 30 ml/kg fluid bolus ordered Amount of fluid ordered: 3 Sepsis Note Date exam was performed: 11/11/23 Time exam was performed: 03:00 Sepsis Attestation: Sepsis re-evaluation was performed Response to fluids: Fluid responsive hypotension Charges/Coding Visit Charges Inpatient E&M: 96074 Init Hosp L2
--- OUTSIDE RECORDS SUMMARY | 2023-11-10 22:43 | XMS RPT_ITS | CCD ---
Author Name Unknown Address [address] [place] [address] Organization [facility] Care Team Providers Care Podiatric Medicine Doctor Name Role Phone MARIOLA PARADA (RES) Unavailable Unavailable MARINA MONTANA (PA-C) Unavailable Unavailable MARIOLA PARADA Unavailable Unavailable ELVI, SUZI-CHI Unavailable Unavailable Elvi, Suzi Chi Primary Care Provider [phone] Luz Maria Matthews MD Unavailable BELINDA EJTT Referring Unavailable ELVI, SUZI CHI Primary Care Unavailable SARAH CHILDERS Admitting Unavailable EMY DAVIS Consulting Unavailabl DARIUS Freeman Attending Unavailable Allergies Allergy Classification Reported Allergen(s) Allergy Type Date of Onset Reaction(s) Facility (4 sources) pravastatin; Translations: [PRAVASTATIN] Drug Allergy 5 Intolerance [facility] Repository (4 sources) predniSONE; Translations: [PREDNISONE] Drug Allergy 5 Unknown [facility] Repository (4 sources) sulfamethoxazol e; Translations: [SULFAMETHOXAZO LE] Drug Allergy 5 Shortness of Breath [facility] Repository (4 sources) INFLUENZA VIRUS VACCINES; Translations: [INFLUENZA VIRUS VACCINES] Propensity to adverse reactions to drug (disorder) 5 Unknown [facility] Medications Completed/Discontinued Medications Medication Drug Class(es) Dates Sig (Normalized) Sig (Original) Albuterol (1 source) beta2-Adrenergic Agonist take 1 spray(s) by inhalation every four hours as needed ALBUTEROL SULFATE (VENTOLIN INHALATION) Inhale 1 [place] as instructed every 4 hours as needed. [...] Start: 10-12-2026 Diabetes Screening Diabetes Screenin g [facility] Start: 07-20-2023 Covid-19 Vaccine () Covid-19 Vaccine () [facility] Start: 07-20-2023 Influenza vaccination Influenza Vacc ine (#1) [facility] Start: 11-19-2022 Advance Directive Discussion Advance Directive Discussion [facility] Start: 11-19-2022 Depression Assessment Depression Ass essment [facility] Start: 12-29-2020 Pneumococcal Vaccine : 65+ (2 - PCV) Pneumococcal Vaccine: 65+ (2 - PCV) [facility] Start: 2017 Bone Density Screening Bone Density Screening [facility] Start: 2012 RSV Vaccine (1 - 1-d ose 60+ series) RSV Vaccine (1 - 1-dose 60+ series) [facility] Start: 2002 Shingrix Vaccine (1 of 2) Shingrix V accine (1 of 2) [facility] Start: 1997 Cologuard (FIT-DNA) Cologuard (FIT-D NA) [facility] Start: 1997 Colonoscopy Colonoscopy [facility] Start: 1997 Colorectal Cancer Screening Colorectal Cancer Screening [facility] Start: [address] Colonography [facility] Start: 1997 Fecal Occult Blood Fecal Occult Bloo d [facility] Start: 1997 Lipid 1996 panel - S ela or Plasma Lipid Screening [facility] Start: 1997 Sigmoidoscopy Sigmoidoscopy [facility] Start: 1992 Mammography Mammogram Screening [facility] Start: 1971 Urine microalbumin profile DTa P,Tdap,Td Vaccine (1 - Tdap) [facility] Start: 1970 Annual PCP Team Tile Roofer jose Disease Visit Annual PCP Team Chronic Disease Visit [facility] Start: 1970 BP Controlled (<130/80) BP Controlle d (<130/80) [facility] Start: 1970 Hepatitis C Screening Hepatitis C Isacc acevedo [facility] Start: 1970 Spirometry Spirometry [facility] Immunizations Immunization Date Immunization Notes Care Provider Gary telles 08-09-2021 influenza virus vacc ine, unspecified formulation Andres Wyatt MD Work Phone: [facility] Payers Date Payer Category Payer Medicare HU[employer]NA MEDICARE HU[employer]NA GOLD PLUS [id number] 2019-Present [phone] [address] [address] [place] [address] HMO [id number] 2019 Private Health Insurance [id number] 1950 Unknown [id number] Medicare [id number] Social History Date Type Detail Facility Start: 01-04-2015 Tobacco smoking status NHIS Ex-smoke r [facility] End: 01-04-2008 History of tobacco use Current smoker [facility] End: 01-04-2008 History of tobacco use Cigarette Smoker [facility] Start: 01-04-2015 Tobacco use and exposure Smoke less tobacco non-user [facility] Start: 10-10-2023 End: 10-11-2023 History of Social function [facility] Start: 10-10-2023 End: 10-11-2023 Tobacco use panel [facility] How hard is it for y ou to pay for the very basics like food, housing, medical care, and heating Not very hard [facility] (I/We) worried wheth er (my/our) food would run out before (I/we) got money to buy more. Never true [facility] In the past 12 month s, has lack of transportation kept you from medical appointments or from getting medications? No [facility] In the past 12 month s, was there a time when you were not able to pay the mortgage or rent on time? No [facility] Start: 1950 Sex Assigned At Not on file [facility] Medical Equipment Procedure Code Equipment Code Equipment Origin al Text Equipment Identifier Dates Set 6fr .038in 2 Pigtail Curve Filiform Black Stainless Steel Vinyl - [id number] Start: 10-11-2023 Note 10-22-2023 Telephone Encounter - SigridRabiahazelgilmamel Princess - 10/22/2023 2:00 PM EST Note Date & Type Note Facility 10-22-2023 Miscellaneous Notes Formattin g of this note might be different from the original. Pt had stent placed on 10/11 how to proceed? Berna Sánchez Sigrid documented in this encounter [facility] Progress note 10-12-2023 Note Date & Type Note Facility 10-12-2023 Note HNO ID: [id number] Author: Darius Moffett MD Service: General Internal [...] clinical indicators: x Hypomagnesemia Other, please specify [facility] Progress note 10-12-2023 Note Date & Type Note Facility 10-12-2023 Note HNO ID: [id number] Author: Andres Wyatt MD Service: Urology Author [...] Date 10/12/23 0700 - 10/13/23 0659 Shift [id number] 24 Hour Total INTAKE PO 360 360 [...] DATE: October 12, 2023 TIME: 11:38 AM [facility] Progress note 10-11-2023 Note Date & Type Note Facility 10-11-2023 Note HNO ID: [id number] Author: Darius Moffett MD Service: General Internal [...] bilaterally.] SKIN: [Clear, no evidence of bleeding.] 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 No focal [...] LULY Presents as a direct admission from [facility] after she presented with abnormal labs [...] Linda Delong DATE: 10/11/2023 TIME: 5:15 PM [facility] Clinical Note 10-10-2023 Note Date & Type Note Facility 10-10-2023 Note HNO ID: [id number] Author: Viri Eubanks RN Service: Care Management Author Type: Registered Nurse Type: Care Mgt Initial Assessment Filed: 10/10/2023 1:31 PM Note Text: CARE MANAGEMENT: ASSESSMENT AND DISCHARGE PLAN SERVICE DATE: October 10, 2023 SERVICE TIME: 1:18 PM PCP: Suzi García MD saw on Sunday10/08/23 Primary Contact: Extended Emergency Contact Information Primary Emergency Contact: Lloyd Delong Address: [address] [place] [id number] Relation: Spouse Secondary Emergency Contact: Lily Frey Relation: Daughter Admission Status: Inpatient Insurance Provider: [employer] Discharge Planning requested by: Patient Potential Transition Plans No Services Indicated;Home Advance Directives Current Advance Directive: None Carpet Weaver Attempted to Assist with AD Completion: Yes [...] Be able to go home, General wellness [place] of Choice Explained: [place] of [place] Given: No Reason Not Given: [...] Possible C-Diff. Admission as a transfer from [facility] for Acute kidney injury in setting of bilateral hydronephrosis. chronic indwelling Roberts cat creatinine 4.7 from the baseline 2-2.3, CT scan of the abdomen and pelvis at [facility] showed bilateral hydronephrosis worsening on the left side. Discharge plan to return to home. Her and her daughter, Lliy and 2 Granddaughters live with her. She [...] 10, 2023 TIME: 1:18 PM CONTACT #: [phone] [facility] History of Past illness Narrative 08-30-2015 Note Date & Type Note Facility documented as of this encounter (statuses as of 10/23/2023) [facility] Summary Purpose Family History No Family [...] CREATED AUTHOR AUTHOR'S ORGANIZ ATION 11/10/2018 [facility] DATE CREATED AUTHOR AUTHOR'S ORGANIZ ATION 10/30/2023 [facility] Ce [facility]ter Source Comments (unrecognize d section and content) In the event this informatio n is protected by the Federal Confidentiality of Alcohol and Drug Abuse Patient Records regulations: The Federal rules restrict any use of the information to criminally investigate or prosecute any alcohol or drug abuse patient.[facility] Reason for Visit (unrecogniz ed section [...] BE BASED ON THE PRIMARY CLINICAL RECORDS. [facility] [employer] [facility]. provides no warranty or guarantee of the accuracy or completeness of information in this document.
[2023-11-10 23:24] VITALS: BMI 26.0
[2023-11-10 23:32] VITALS: BP 134/75; PULSE 106; RESP 18; TEMP 36.6; O2SAT 97
[2023-11-10] MEDS: Linezolid 600 MG 600 MG/300 ML BAG 200 MG IV (23:35)
--- OUTSIDE RECORDS SUMMARY | 2023-11-10 23:35 | XMS RPT_ITS | CCD ---
Author Name Unknown Address [address] [place] [address] Organization [facility] Care Team Providers Care Equity Analyst Name Role Phone MARIOLA PARADA (RES) Unavailable Unavailable MARINA MONTANA (PA-C) Unavailable Unavailable MARIOLA PARADA Unavailable Unavailable ELVI, SUZI-CHI Unavailable Unavailable Elvi, Suzi Chi Primary Care Provider Luz Maria Matthews MD Unavailable [phone] BELINDA JETT Referring Unavailable ELIV, SUZI CHI Primary Care Unavailable SARAH CHILDERS Admitting Unavailable EMY DAVIS Consulting Unavailabl DARIUS Freeman Attending Unavailable Allergies Allergy Classification Reported Allergen(s) Allergy Type Date of Onset Reaction(s) Facility (4 sources) pravastatin; Translations: [PRAVASTATIN] Drug Allergy 5 Intolerance [facility] Repository (4 sources) predniSONE; Translations: [PREDNISONE] Drug Allergy 5 Unknown [facility] Repository (4 sources) sulfamethoxazol e; Translations: [SULFAMETHOXAZO LE] Drug Allergy 5 Shortness of Breath [facility] Repository (4 sources) INFLUENZA VIRUS VACCINES; Translations: [INFLUENZA VIRUS VACCINES] Propensity to adverse reactions to drug (disorder) 5 Unknown [facility] Repository Medications Completed/Discontinued Medications Medication Drug Class(es) Dates Sig (Normalized) Sig (Original) Albuterol (1 source) beta2-Adrenergic Agonist take 1 spray(s) by inhalation every four hours as needed ALBUTEROL SULFATE (VENTOLIN INHALATION) Inhale 1 Warren as instructed every 4 hours as needed. [...] Start: 10-12-2026 Diabetes Screening Diabetes Screenin g [facility] Start: 07-20-2023 Covid-19 Vaccine () Covid-19 Vaccine () [facility] Start: 07-20-2023 Influenza vaccination Influenza Vacc ine (#1) [facility] Start: 11-19-2022 Advance Directive Discussion Advance Directive Discussion [facility] Start: 11-19-2022 Depression Assessment Depression Ass essment [facility] Start: 12-29-2020 Pneumococcal Vaccine : 65+ (2 - PCV) Pneumococcal Vaccine: 65+ (2 - PCV) [facility] Start: 2017 Bone Density Screening Bone Density Screening [facility] Start: 2012 RSV Vaccine (1 - 1-d ose 60+ series) RSV Vaccine (1 - 1-dose 60+ series) [facility] Start: 2002 Shingrix Vaccine (1 of 2) Shingrix V accine (1 of 2) [facility] Start: 1997 Cologuard (FIT-DNA) Cologuard (FIT-D NA) [facility] Start: 1997 Colonoscopy Colonoscopy [facility] Start: 1997 Colorectal Cancer Screening Colorectal Cancer Screening [facility] Start: [address] Colonography [facility] Start: 1997 Fecal Occult Blood Fecal Occult Bloo d [facility] Start: 1997 Lipid 1996 panel - S ela or Plasma Lipid Screening [facility] Start: 1997 Sigmoidoscopy Sigmoidoscopy [facility] Start: 1992 Mammography Mammogram Screening [facility] Start: 1971 Urine microalbumin profile DTa P,Tdap,Td Vaccine (1 - Tdap) [facility] Start: 1970 Annual PCP Team Sizing Machine Tender jose Disease Visit Annual PCP Team Chronic Disease Visit [facility] Start: 1970 BP Controlled (<130/80) BP Controlle d (<130/80) [facility] Start: 1970 Hepatitis C Screening Hepatitis C Isacc acevedo [facility] Start: 1970 Spirometry Spirometry [facility] Immunizations Immunization Date Immunization Notes Care Provider Gary telles 08-09-2021 influenza virus vacc ine, unspecified formulation Andres Wyatt MD Work Phone: [facility] Payers Date Payer Category Payer Medicare HU[employer]NA MEDICARE HU[employer]NA GOLD PLUS [id number] 2019-Present [phone] [address] [address] [place] [address] HMO [id number] 2019 Private Health Insurance [id number] 1950 Unknown [id number] Medicare [id number] Social History Date Type Detail Facility Start: 01-04-2015 Tobacco smoking status NHIS Ex-smoke r [facility] End: 01-04-2008 History of tobacco use Current smoker [facility] End: 01-04-2008 History of tobacco use Cigarette Smoker [facility] Start: 01-04-2015 Tobacco use and exposure Smoke less tobacco non-user [facility] Start: 10-10-2023 End: 10-11-2023 History of Social function [facility] Start: 10-10-2023 End: 10-11-2023 Tobacco use panel [facility] How hard is it for y ou to pay for the very basics like food, housing, medical care, and heating Not very hard [facility] (I/We) worried wheth er (my/our) food would run out before (I/we) got money to buy more. Never true [facility] In the past 12 month s, has lack of transportation kept you from medical appointments or from getting medications? No [facility] In the past 12 month s, was there a time when you were not able to pay the mortgage or rent on time? No [facility] Start: 1950 Sex Assigned At Not on file [facility] Medical Equipment Procedure Code Equipment Code Equipment Origin al Text Equipment Identifier Dates Set 6fr .038in 2 Pigtail Curve Filiform Black Stainless Steel Vinyl - [id number] Start: 10-11-2023 Note 10-22-2023 Telephone Encounter - SigridRabiahazelgilmamel Princess - 10/22/2023 2:00 PM EST Note Date & Type Note Facility 10-22-2023 Miscellaneous Notes Formattin g of this note might be different from the original. Pt had stent placed on 10/11 how to proceed? Berna Sánchez Sigrid documented in this encounter [facility] Progress note 10-12-2023 Note Date & Type Note Facility 10-12-2023 Note HNO ID: [id number] Author: Darius Moffett MD Service: General Internal [...] clinical indicators: x Hypomagnesemia Other, please specify [facility] Progress note 10-12-2023 Note Date & Type Note Facility 10-12-2023 Note HNO ID: [id number] Author: Andres Wyatt MD Service: Urology Author [...] Date 10/12/23 0700 - 10/13/23 0659 Shift [id number] 24 Hour Total INTAKE PO 360 360 [...] DATE: October 12, 2023 TIME: 11:38 AM [facility] Progress note 10-11-2023 Note Date & Type Note Facility 10-11-2023 Note HNO ID: [id number] Author: Darius Moffett MD Service: General Internal [...] bilaterally.] SKIN: [Clear, no evidence of bleeding.] RELINER: [Patient awake, alert, oriented ?3. No focal [...] LULY Presents as a direct admission from [facility] after she presented with abnormal labs [...] Linda Delong DATE: 10/11/2023 TIME: 5:15 PM [facility] Clinical Note 10-10-2023 Note Date & Type Note Facility 10-10-2023 Note HNO ID: [id number] Author: Viri Eubanks RN Service: Care Management Author Type: Registered Nurse Type: Care Mgt Initial Assessment Filed: 10/10/2023 1:31 PM Note Text: CARE MANAGEMENT: ASSESSMENT AND DISCHARGE PLAN SERVICE DATE: October 10, 2023 SERVICE TIME: 1:18 PM PCP: Suzi García MD saw on Sunday10/08/23 Primary Contact: Extended Emergency Contact Information Primary Emergency Contact: Lloyd Delong Address: [address] [place] [id number] Relation: Spouse Secondary Emergency Contact: Lily Frey Relation: Daughter Admission Status: Inpatient Insurance Provider: [employer] Discharge Planning requested by: Patient Potential Transition Plans No Services Indicated;Home Advance Directives Current Advance Directive: None Typewriter Ribbon Winder Attempted to Assist with AD Completion: Yes [...] Be able to go home, General wellness [place] of Choice Explained: [place] of Choice Given: No Reason Not Given: [...] Possible C-Diff. Admission as a transfer from [facility] for Acute kidney injury in setting of bilateral hydronephrosis. chronic indwelling Roberts cat creatinine 4.7 from the baseline 2-2.3, CT scan of the abdomen and pelvis at [place] showed bilateral hydronephrosis worsening on the left [...] 10, 2023 TIME: 1:18 PM CONTACT #: [phone] [facility] History of Past illness Narrative 08-30-2015 Note Date & Type Note Facility documented as of this encounter (statuses as of 10/23/2023) [facility] Summary Purpose Family History No Family History [...] CREATED AUTHOR AUTHOR'S ORGANIZ ATION 11/10/2018 [facility] DATE CREATED AUTHOR AUTHOR'S ORGANIZ ATION 10/30/2023 [facility] Source Comments (unrecognize d section and content) In the event this informatio n is protected by the Federal Confidentiality of Alcohol and Drug Abuse Patient Records regulations: The Federal rules restrict any use of the information to criminally investigate or prosecute any alcohol or drug abuse patient.[facility] Reason for Visit (unrecogniz ed section and [...] BE BASED ON THE PRIMARY CLINICAL RECORDS. [facility]. provides no warranty or guarantee of the accuracy or completeness of information in this document.
[2023-11-10] MEDS: 0.9% Normal Saline (1000mL) 1,000 ML 999 ML IV (23:48)
[2023-11-10] MEDS: 0.9% Saline Lock 10 ML Syringe IV (23:58)
[2023-11-11 00:25] LABS: Lactic Acid 0.9 mmol/L (0.4-1.9)
[2023-11-11] MEDS: Meropenem 500 MG in 0.9% Normal Saline (50mL MB+) 50 ML 33 MG IV ×3 (00:32→20:40)
[2023-11-11] MEDS: 0.9% Normal Saline (250mL Bag) 250 ML 15 ML IV (00:33)
[2023-11-11] MEDS: 0.9% Normal Saline (1000mL) 1,000 ML 999 ML IV (01:01)
[2023-11-11] MEDS: Ondansetron 4 MG/2 ML Vial IV ×2 (04:17→22:44)
[2023-11-11 04:47] VITALS: BP 135/69; PULSE 101; RESP 18; TEMP 36.8; O2SAT 99
[2023-11-11] MEDS: proMETHazine 25 MG/ML Syringe IM (06:48)
[2023-11-11 07:21] LABS: Absolute Lymphocyte Count 3.57 X10^3/uL (0.83-4.51); Absolute Neutrophil Count 11.4 X10^3/uL (2.0-7.7); Basophil# 0.06 X10^3/uL; Basophil% 0.4 % (0-1); Eosinophil# 0.04 X10^3/uL; Eosinophils% 0.2 % (0-5); Hematocrit 35.5 % (37-47); Hemoglobin 10.9 g/dL (12.0-15.0); Lymphocyte # 3.57 X10^3/ul (0.83-4.51); Lymphocyte % 22.1 % (19-41); Mean Corp Hgb Conc 30.7 g/dL (32-36); Mean Corpuscular Hgb 31.4 pg (27.0-32.0); Mean Corpuscular Volume 102.3 fL (81-99); Mean Platelet Vol. 9.9 fl (6.2-12.0); Monocyte# 1.03 X10^3/uL; Monocyte% 6.4 % (0-10); NRBC Flagged by Analyzer 0 % (0-5); Neutrophil # 11.36 X10^3/uL (2.7-7.7); Neutrophil % 70.1 % (47-70); Platelet Count 316 K/mm3 (150-450); RBC Distribution Width CV 15.5 % (11.6-14.6); Red Blood Count 3.47 M/mm3 (4.2-5.4); White Blood Count 16.2 K/mm3 (4.4-11.0)
--- NOTE | 2023-11-11 07:23 | PN.HOSP_ITS ---
Reason for Visit Reason for Visit: Diagnoses Sepsis, unspecified organism (11/10/23) Elevated white blood cell count, unspecified (11/10/23) Chronic kidney disease, stage 4 (severe) (11/10/23) Urinary tract infection, site not specified (11/10/23) Subjective Subjective Feels well. No new events overnight. Objective Data Objective Data Vital Signs: Vital Signs Temp Pulse Resp BP Pulse Ox O2 Del Method 36.8 C 101 H 18 135/69 H 99 Room Air 11/11/23 04:47 11/11/23 04:47 11/11/23 04:47 11/11/23 04:47 11/11/23 04:47 11/11/23 04:47 Oxygen Delivery Method Room Air Weight: 77.8 kg Body Mass Index (BMI) 26.0 Intake & Output: Intake and Output for Last 24 Hours 11/09/23 11/10/23 11/11/23 23:59 23:59 23:59 Intake Total 1050 / 1050 2560.75 / 2560.75 Balance 1050 / 1050 2560.75 / 2560.75 Lab / Micro Data 11/11/23 07:12 11/11/23 07:12 Labs: Laboratory Results - last 24 hr 11/10/23 20:15: Urine Color Yellow, Urine Clarity Cloudy, Urine pH 6.5, Ur Specific Peck 1.010, Urine Protein 100 H, Urine Glucose (UA) Normal, Urine Ketones Negative, Urine Occult Blood 150 H, Urine Nitrite Negative, Urine Bilirubin Negative, Urine Urobilinogen Normal, Ur Leukocyte Esterase 500 H, Urine RBC 0 SEEN, Urine WBC >100 SEEN, Ur Squamous Epith Cells 0 SEEN, Urine Bacteria 0 SEEN, Urine Mucus 0 SEEN 11/10/23 20:25: WBC 21.9 H, RBC 3.91 L, Hgb 12.3, Hct 38.3, MCV 98.0, MCH 31.5, MCHC 32.1, RDW Std Deviation 54.4 H, RDW Coeff of Dewey 15.4 H, Plt Count 408, MPV 10.2, Immature Gran % (Auto) 0.600, Neut % (Auto) 56.4, Lymph % (Auto) 36.1, [place] % (Auto) 5.9, Eos % (Auto) 0.6, Baso % (Auto) 0.4, Absolute Neuts (auto) 12.4 H, Absolute Lymphs (auto) 7.90 H, Nucleated RBC % 0.1, Differential Comment SCANNED, Sodium 139, Potassium 3.6, Chloride 110 H, Carbon Dioxide 19.0 L, Anion Gap 10, BUN 15, Creatinine 2.40 H, Estim Creat Clear Calc 21.69, Est GFR (MDRD) Af Amer 26 L, Est GFR (MDRD) Non-Af 21 L, BUN/Creatinine Ratio 6.2 L, Glucose 111 H, Lactic Acid 1.9, Calcium 7.6 L, Total Bilirubin 0.80, AST 13 L, ALT 11 L, Alkaline Phosphatase 112, Total Protein 8.3 H, Albumin 2.5 L, Globulin 5.8 H, Albumin/Globulin Ratio 0.4 L 11/10/23 23:54: Lactic Acid 0.9 11/11/23 07:12: WBC 16.2 H, RBC 3.47 L, Hgb 10.9 L, Hct 35.5 L, MCV 102.3 H, MCH 31.4, MCHC 30.7 L, RDW Std Deviation 57.0 H, RDW Coeff of Dewey 15.5 H, Plt Count 316, MPV 9.9, Immature Gran % (Auto) 0.800, Neut % (Auto) 70.1 H, Lymph % (Auto) 22.1, [place] % (Auto) 6.4, Eos % (Auto) 0.2, Baso % (Auto) 0.4, Absolute Neuts (auto) 11.4 H, Absolute Lymphs (auto) 3.57, Nucleated RBC % 0 Physical Exam Const alert and no apparent distress Neck no lymphadenopathy Resp normal respiratory effort, no retractions, no use of accessory muscles and clear to auscultation bilaterally Cardio regular rate, regular rhythm, S1 normal heart sound and S2 normal heart sound GI normal to inspection, nondistended, normoactive bowel sounds, soft to palpation, non-tender and non-distended Extremity normal to inspection Neuro Sensorium / Orientation: awake and alert Assessment & Plan Assessment/Plan (1) Acute UTI: (2) Sepsis: QUALIFIERS: Sepsis acute organ dysfunction status: without acute organ dysfunction Sepsis type: sepsis due to unspecified organism Qualified Code(s): A41.9 - Sepsis, unspecified organism (3) Chronic kidney disease: QUALIFIERS: Chronic kidney disease stage: stage 4 (severe) Qualified Code(s): N18.4 - Chronic kidney disease, stage 4 (severe) (4) Leukocytosis: QUALIFIERS: Leukocytosis type: unspecified Qualified Code(s): D72.829 - Elevated white blood cell count, unspecified PLAN: Plan Acute UTI * Uncomplicated. * Failed outpt abx w cephalexin. * qSOFA 0 on admission. Therefore, sepsis not present. * Continue meropenem. H/O Klebsiella pneumonia treated with cephalexin. More recently E. coli. Follow up cultures. Chronic conditions: * Chronic kidney disease stage IIIb-IV; with history of atriovenostomy for renal dialysis in September 2021, * Essential hypertension continue amlodpidine * Hyperlipidemia (with history of anaphylaxis to statins) * Hypothyroidism - levothyroxine * Previous history of tobacco abuse * History of mild intermittent asthma - Stable with no evidence of acute flare at this time. BDs PRN. * Chronic gout - Stable no evidence of acute flare. DVT prophylaxis - Lovenox 30 mg sq daily Charges/Coding Visit Charges Inpatient E&M: 04952 Subs Hosp L2
[2023-11-11 07:38] LABS: ALB/GLOB Ratio 0.4 RATIO (0.9-2.4); AST(SGOT) 9 U/L (15-37); Alanine Aminotransfer ALT/SGPT 7 U/L (13-56); Albumin, Serum 1.9 g/dL (3.2-5.0); Alkaline Phosphatase 96 U/L (45-117); Anion Gap 7 (5-15); BUN 17 mg/dL (7-18); BUN/Creat Ratio 6.8 RATIO (10-20); Calcium,Total 7.1 mg/dL (8.5-10.1); Chloride 115 mmol/L (98-107); Creatinine, Serum 2.49 mg/dL (0.55-1.02); EST Glomerular Filtration Rate 20 mL/min (>60); Est Glom Filt Rate - Afr Amer 25 mL/min (>60); Glucose 110 mg/dL (74-106); Potassium 3.6 mmol/L (3.5-5.1); Protein, Total 6.9 g/dL (6.4-8.2); Sodium Level 141 mmol/L (136-145)
[2023-11-11 08:08] LABS: Lactic Acid 1.2 mmol/L (0.4-1.9)
[2023-11-11] MEDS: Potassium Chloride Oral Tablet 20 MEQ PO (09:53)
[2023-11-11] MEDS: Ipratropium Bromide 0.06% NASAL SPRAY 2 SPRAY NASAL (09:53)
[2023-11-11] MEDS: Pantoprazole Sodium 40 MG Tablet PO (09:54)
[2023-11-11] MEDS: Linezolid 600 MG 600 MG/300 ML BAG 200 MG IV ×2 (09:55→20:39)
[2023-11-11 10:06] VITALS: BP 134/70; PULSE 105; RESP 18; TEMP 37.1; O2SAT 98
[2023-11-11] MEDS: amLODIPine 2.5 MG Tablet PO (10:08)
[2023-11-11 15:15] VITALS: BP 128/73; PULSE 119; RESP 18; TEMP 37.2; O2SAT 98
[2023-11-11 19:38] VITALS: BP 151/80; PULSE 110; RESP 18; TEMP 37; O2SAT 97
[2023-11-12 02:38] VITALS: BP 138/75; PULSE 122; RESP 18; TEMP 37.1; O2SAT 95
[2023-11-12 05:11] LABS: Absolute Lymphocyte Count 4.33 X10^3/uL (0.83-4.51); Absolute Neutrophil Count 20.2 X10^3/uL (2.0-7.7); Basophil# 0.07 X10^3/uL; Basophil% 0.3 % (0-1); Eosinophil# 0.02 X10^3/uL; Eosinophils% 0.1 % (0-5); Hematocrit 34.4 % (37-47); Hemoglobin 10.7 g/dL (12.0-15.0); Lymphocyte # 4.33 X10^3/ul (0.83-4.51); Lymphocyte % 16.6 % (19-41); Mean Corp Hgb Conc 31.1 g/dL (32-36); Mean Corpuscular Hgb 31.3 pg (27.0-32.0); Mean Corpuscular Volume 100.6 fL (81-99); Mean Platelet Vol. 10.3 fl (6.2-12.0); Monocyte# 1.16 X10^3/uL; Monocyte% 4.4 % (0-10); NRBC Flagged by Analyzer 0 % (0-5); Neutrophil # 20.24 X10^3/uL (2.7-7.7); Neutrophil % 77.4 % (47-70); POSITIVE DIFFERENTIAL YES; Platelet Count 323 K/mm3 (150-450); RBC Distribution Width CV 15.5 % (11.6-14.6); RBC Distribution Width SD 57.1 fl (35.1-43.9); Red Blood Count 3.42 M/mm3 (4.2-5.4); White Blood Count 26.1 K/mm3 (4.4-11.0)
[2023-11-12 05:45] LABS: Differential Indicated SCAN CRITERIA MET
[2023-11-12] MEDS: Ondansetron 4 MG/2 ML Vial IV (05:47)
[2023-11-12 07:05] LABS: Differential Comment SCANNED
[2023-11-12 07:08] LABS: Anion Gap 11 (5-15); BUN 20 mg/dL (7-18); BUN/Creat Ratio 6.2 RATIO (10-20); Calcium,Total 7.1 mg/dL (8.5-10.1); Chloride 110 mmol/L (98-107); Creatinine, Serum 3.23 mg/dL (0.55-1.02); EST Glomerular Filtration Rate 15 mL/min (>60); Est Glom Filt Rate - Afr Amer 18 mL/min (>60); Estimated Creatinine Clearance 16.12 ml/min; Glucose 101 mg/dL (74-106); Potassium 3.7 mmol/L (3.5-5.1); Sodium Level 136 mmol/L (136-145)
--- NOTE | 2023-11-12 07:26 | PN.HOSP_ITS ---
Reason for Visit Reason for Visit: Diagnoses Sepsis, unspecified organism (11/10/23) Elevated white blood cell count, unspecified (11/10/23) Chronic kidney disease, stage 4 (severe) (11/10/23) Urinary tract infection, site not specified (11/10/23) Subjective Subjective Still feeling sick. Objective Data Objective Data Vital Signs: Vital Signs Temp Pulse Resp BP Pulse Ox O2 Del Method 37.1 C 122 H 18 138/75 H 95 Room Air 11/12/23 02:38 11/12/23 02:38 11/12/23 02:38 11/12/23 02:38 11/12/23 02:38 11/12/23 02:38 Oxygen Delivery Method Room Air Weight: 77.8 kg Body Mass Index (BMI) 26.0 Intake & Output: Intake and Output for Last 24 Hours 11/10/23 11/11/23 11/12/23 23:59 23:59 23:59 Intake Total 1050 / 1050 3395.50 / 3395.50 Output Total 150 / 150 Balance 1050 / 1050 3395.50 / 3395.50 -150 / -150 Lab / Micro Data 11/12/23 04:35 11/12/23 04:35 Labs: Laboratory Results - last 24 hr 11/11/23 07:12: Sodium 141, Potassium 3.6, Chloride 115 H, Carbon Dioxide 19.0 L , Anion Gap 7, BUN 17, Creatinine 2.49 H, Estim Creat Clear Calc 20.90, Est GFR (MDRD) Af Amer 25 L, Est GFR (MDRD) Non-Af 20 L, BUN/Creatinine Ratio 6.8 L, Glucose 110 H, Calcium 7.1 L, Total Bilirubin 0.50, AST 9 L, ALT 7 L, Alkaline Phosphatase 96, Total Protein 6.9, Albumin 1.9 L, Globulin 5.0 H, Albumi n/Globulin Ratio 0.4 L 11/11/23 07:18: Lactic Acid 1.2 11/12/23 04:35: WBC 26.1 H, RBC 3.42 L, Hgb 10.7 L, Hct 34.4 L, MCV 100.6 H, MCH 31.3, MCHC 31.1 L, RDW Std Deviation 57.1 H, RDW Coeff of Dewey 15.5 H, Plt Count 323, MPV 10.3, Immature Gran % (Auto) 1.200 H, Neut % (Auto) 77.4 H, Lymph % (Auto) 16.6 L, [place] % (Auto) 4.4, Eos % (Auto) 0.1, Baso % (Auto) 0.3, Absolute Neuts (auto) 20.2 H, Absolute Lymphs (auto) 4.33, Nucleated RBC % 0, Differential Comment SCANNED, Sodium 136, Potassium 3.7, Chloride 110 H, Carbon Dioxide 15.0 L, Anion Gap 11, BUN 20 H, Creatinine 3.23 H, Estim Creat Clear Calc 16.12, Est GFR (MDRD) Af Amer 18 L, Est GFR (MDRD) Non-Af 15 L, BUN/Creatinine Ratio 6.2 L, Glucose 101, Calcium 7.1 L Physical Exam Const alert and no apparent distress HEENT head/scalp atraumatic and moist oral mucous membranes Resp normal respiratory effort, no retractions, no use of accessory muscles and clear to auscultation bilaterally Cardio regular rate, regular rhythm, S1 normal heart sound and S2 normal heart sound GI normal to inspection, nondistended, normoactive bowel sounds, soft to palpation, non-tender and non-distended GI Narrative: no CVA tenderness. Neuro Sensorium / Orientation: awake and alert Assessment & Plan Assessment/Plan (1) Acute UTI: (2) Sepsis: QUALIFIERS: Sepsis acute organ dysfunction status: without acute organ dysfunction Sepsis type: sepsis due to unspecified organism Qualified Code(s): A41.9 - Sepsis, unspecified organism (3) Chronic kidney disease: QUALIFIERS: Chronic kidney disease stage: stage 4 (severe) Qualified Code(s): N18.4 - Chronic kidney disease, stage 4 (severe) (4) Leukocytosis: QUALIFIERS: Leukocytosis type: unspecified Qualified Code(s): D72.829 - Elevated white blood cell count, unspecified PLAN: Plan Acute UTI * Uncomplicated. * Failed outpt abx w cephalexin. * qSOFA 0 on admission. Therefore, sepsis not present. * Continue meropenem. DC linezolid. H/O Klebsiella pneumonia treated with cephalexin. More recently E. coli. Follow up cultures. Tachycardia * ongoing * sinus on telemetry. Likely secondary to underlying infection. Will give an additional liter of IVF. Chronic conditions: * Chronic kidney disease stage IIIb-IV; with history of atriovenostomy for renal dialysis in September 2021, * Essential hypertension continue amlodpidine * Hyperlipidemia (with history of anaphylaxis to statins) * Hypothyroidism - levothyroxine * Previous history of tobacco abuse * History of mild intermittent asthma - Stable with no evidence of acute flare at this time. BDs PRN. * Chronic gout - Stable no evidence of acute flare. DVT prophylaxis - Lovenox 30 mg sq daily Charges/Coding Visit Charges Inpatient E&M: 78385 Subs Hosp L2
[2023-11-12] MEDS: Potassium Chloride Oral Tablet 20 MEQ PO (08:25)
[2023-11-12 08:40] VITALS: BP 156/84; PULSE 110; RESP 18; TEMP 37.3; O2SAT 98
[2023-11-12] MEDS: 0.9% Normal Saline (1000mL) 1,000 ML 150 ML IV (08:41)
[2023-11-12] MEDS: Ipratropium Bromide 0.06% NASAL SPRAY 2 SPRAY NASAL (08:48)
[2023-11-12] MEDS: Pantoprazole Sodium 40 MG Tablet PO (08:49)
[2023-11-12] MEDS: amLODIPine 2.5 MG Tablet PO (08:49)
[2023-11-12] MEDS: Meropenem 500 MG in 0.9% Normal Saline (50mL MB+) 50 ML 33 MG IV ×2 (10:45→20:55)
[2023-11-12 17:02] VITALS: BP 145/85; PULSE 109; RESP 18; TEMP 36.7; O2SAT 98
[2023-11-12 20:44] VITALS: BP 149/80; PULSE 117; RESP 18; TEMP 36.6; O2SAT 100
[2023-11-12] MEDS: Menthol/Lanolin/Calamine/Znox 113 GM Tube 1 APPLIC TOPICAL (20:51)
[2023-11-12] MEDS: 0.9% Saline Lock 10 ML Syringe IV (20:52)
[2023-11-13 05:16] VITALS: BP 157/80; PULSE 105; RESP 18; TEMP 36.6; O2SAT 98
[2023-11-13 07:15] LABS: Absolute Lymphocyte Count 3.47 X10^3/uL (0.83-4.51); Absolute Neutrophil Count 13.5 X10^3/uL (2.0-7.7); Basophil# 0.06 X10^3/uL; Basophil% 0.3 % (0-1); Eosinophil# 0.18 X10^3/uL; Hematocrit 30.7 % (37-47); Hemoglobin 9.5 g/dL (12.0-15.0); Lymphocyte # 3.47 X10^3/ul (0.83-4.51); Mean Corp Hgb Conc 30.9 g/dL (32-36); Mean Corpuscular Hgb 30.5 pg (27.0-32.0); Mean Corpuscular Volume 98.7 fL (81-99); Mean Platelet Vol. 10.1 fl (6.2-12.0); Monocyte# 0.83 X10^3/uL; Monocyte% 4.5 % (0-10); NRBC Flagged by Analyzer 0 % (0-5); Neutrophil # 13.53 X10^3/uL (2.7-7.7); Neutrophil % 74.1 % (47-70); Platelet Count 310 K/mm3 (150-450); RBC Distribution Width CV 15.5 % (11.6-14.6); RBC Distribution Width SD 55.6 fl (35.1-43.9); Red Blood Count 3.11 M/mm3 (4.2-5.4); White Blood Count 18.3 K/mm3 (4.4-11.0)
--- NOTE | 2023-11-13 07:29 | PN.HOSP_ITS ---
Reason for Visit Reason for Visit: Diagnoses Sepsis, unspecified organism (11/10/23) Elevated white blood cell count, unspecified (11/10/23) Chronic kidney disease, stage 4 (severe) (11/10/23) Urinary tract infection, site not specified (11/10/23) Subjective Subjective Feels well. No new complaints. Objective Data Objective Data Vital Signs: Vital Signs Temp Pulse Resp BP Pulse Ox O2 Del Method 36.6 C 105 H 18 157/80 H 98 Room Air 11/13/23 05:16 11/13/23 05:16 11/13/23 05:16 11/13/23 05:16 11/13/23 05:16 11/13/23 05:16 Oxygen Delivery Method Room Air Weight: 77.8 kg Body Mass Index (BMI) 26.0 Intake & Output: Intake and Output for Last 24 Hours 11/11/23 11/12/23 11/13/23 23:59 23:59 23:59 Intake Total 3395.50 / 3395.50 2770 / 2770 300 / 300 Output Total 150 / 150 Balance 3395.50 / 3395.50 2620 / 2620 300 / 300 Lab / Micro Data 11/13/23 07:00 11/13/23 07:00 Labs: Laboratory Results - last 24 hr 11/13/23 06:10: WBC Cancelled, Corrected WBC Cancelled, RBC Cancelled, Hgb Cancelled, Hct Cancelled, MCV Cancelled, MCH Cancelled, MCHC Cancelled, RDW Std Deviation Cancelled, RDW Coeff of Dewey Cancelled, Plt Count Cancelled, MPV Cancelled, Immature Gran % (Auto) Cancelled, Neut % (Auto) Cancelled, Lymph % (Auto) Cancelled, [place] % (Auto) Cancelled, Eos % (Auto) Cancelled, Baso % (Auto) Cancelled, Absolute Neuts (auto) Cancelled, Absolute Lymphs (auto) Cancelled, Total Counted Cancelled, Neutrophils % (Manual) Cancelled, Band Neutrophils % Cancelled, Lymphocytes % (Manual) Cancelled, Monocytes % (Manual) Cancelled, Eosinophils % (Manual) Cancelled, Basophils % (Manual) Cancelled, Metamyelocytes % Cancelled, Myelocytes % Cancelled, Promyelocytes % Cancelled, Blast Cells % Cancelled, Plasma Cell % (Manual) Cancelled, Other Cells % Cancelled, Nucleated RBC % Cancelled, Nucleated RBCs/100 WBC Cancelled, Differential Comment Cancelled, Diff Path Review Cancelled, Hypersegmented Neuts Cancelled, Atypical Lymphocytes Cancelled, Reactive Lymphocytes Cancelled, Smudge Cells Cancelled, Toxic Granulation Cancelled, Toxic Vacuolation Cancelled, Dohle Bodies Cancelled, Su Rods Cancelled, Platelet Estimate Cancelled, Plt Morphology Comment Cancelled, RBC Morphology Cancelled 11/13/23 06:10: RBC Morphology Cancelled, Polychromasia Cancelled, Hypochromasia Cancelled, Poikilocytosis Cancelled, Basophilic Stippling Cancelled, Ani socytosis Cancelled, Microcytosis Cancelled, Macrocytosis Cancelled, Spherocytes Cancelled, Sickle Cells Cancelled, Target Cells Cancelled, Tear Drop Cells Cancelled, Ovalocytes Cancelled, Stomatocytes Cancelled, Gamino-Plum Bodies Cancelled, Annette Cells Cancelled, Bite Cells Cancelled, Crenated Cell Cancelled, Acanthocytes (Spur) Cancelled, Rouleaux Cancelled, Schistocytes Cancelled, Sodium Cancelled, Potassium Cancelled, Chloride Cancelled, Carbon Dioxide Cancelled, Anion Gap Cancelled, BUN Cancelled, Creatinine Cancelled, Estim Creat Clear Calc Cancelled, Est GFR (MDRD) Af Amer Cancelled, Est GFR (MDRD) Non-Af Cancelled, BUN/Creatinine Ratio Cancelled, Glucose Cancelled, Calcium Cancelled, Total Bilirubin Cancelled, AST Cancelled, ALT Cancelled, Alkaline Phosphatase Cancelled, Total Protein Cancelled, Albumin Cancelled, Globulin Cancelled, Albumin/Globulin Ratio Cancelled 11/13/23 07:00: WBC 18.3 H, RBC 3.11 L, Hgb 9.5 L, Hct 30.7 L, MCV 98.7, MCH 30.5, MCHC 30.9 L, RDW Std Deviation 55.6 H, RDW Coeff of Dewey 15.5 H, Plt Count 310, MPV 10.1, Immature Gran % (Auto) 1.100 H, Neut % (Auto) 74.1 H, Lymph % (Auto) 19.0, [place] % (Auto) 4.5, Eos % (Auto) 1.0, Baso % (Auto) 0.3, Absolute Neuts (auto) 13.5 H, Absolute Lymphs (auto) 3.47, Nucleated RBC % 0 Micro: Microbiology 11/10/23 20:15 Urine, Clean Catch Urine Culture - Final Mixed Gram Positive Organisms Physical Exam Const alert and no apparent distress HEENT head/scalp atraumatic and moist oral mucous membranes Extremity normal to inspection Neuro Sensorium / Orientation: awake and alert Assessment & Plan Assessment/Plan (1) Acute UTI: (2) Sepsis: QUALIFIERS: Sepsis acute organ dysfunction status: without acute organ dysfunction Sepsis type: sepsis due to unspecified organism Qualified Code(s): A41.9 - Sepsis, unspecified organism (3) Chronic kidney disease: QUALIFIERS: Chronic kidney disease stage: stage 4 (severe) Qualified Code(s): N18.4 - Chronic kidney disease, stage 4 (severe) (4) Leukocytosis: QUALIFIERS: Leukocytosis type: unspecified Qualified Code(s): D72.829 - Elevated white blood cell count, unspecified PLAN: Plan Acute UTI * Uncomplicated. * Failed outpt abx w cephalexin. * qSOFA 0 on admission. Therefore, sepsis not present. * Continue meropenem. DC linezolid. H/O Klebsiella pneumonia treated with cephalexin. More recently E. coli. Follow up cultures. * UCx mixed GPO. Given presentation, would elect to continue to treat with abx. Likely change to nitrofurantoin. (E. coli that she had last month was sensitive.) * Patient does have ureteral stents placed. Concerned that this could be leading to recurrent infections. Advised patient follow-up with Dr. Strickland as outpatient. Tachycardia * resolved * sinus on telemetry. Likely secondary to underlying infection. Will give an additional liter of IVF. Chronic conditions: * Chronic kidney disease stage IIIb-IV; with history of atriovenostomy for renal dialysis in September 2021, * Essential hypertension continue amlodpidine * Hyperlipidemia (with history of anaphylaxis to statins) * Hypothyroidism - levothyroxine * Previous history of tobacco abuse * History of mild intermittent asthma - Stable with no evidence of acute flare at this time. BDs PRN. * Chronic gout - Stable no evidence of acute flare. DVT prophylaxis - Lovenox 30 mg sq daily
[2023-11-13 07:47] LABS: ALB/GLOB Ratio 0.3 RATIO (0.9-2.4); AST(SGOT) 11 U/L (15-37); Alanine Aminotransfer ALT/SGPT < 6 U/L (13-56); Albumin, Serum 1.6 g/dL (3.2-5.0); Alkaline Phosphatase 90 U/L (45-117); Anion Gap 11 (5-15); BUN 25 mg/dL (7-18); BUN/Creat Ratio 6.2 RATIO (10-20); Calcium,Total 6.7 mg/dL (8.5-10.1); Chloride 112 mmol/L (98-107); Creatinine, Serum 4.04 mg/dL (0.55-1.02); EST Glomerular Filtration Rate 12 mL/min (>60); Est Glom Filt Rate - Afr Amer 14 mL/min (>60); Estimated Creatinine Clearance 12.88 ml/min; Globulin 4.6 g/dL (2.2-4.2); Glucose 83 mg/dL (74-106); Potassium 3.7 mmol/L (3.5-5.1); Protein, Total 6.2 g/dL (6.4-8.2); Sodium Level 139 mmol/L (136-145)
[2023-11-13 08:00] VITALS: BP 132/71; PULSE 102; RESP 18; TEMP 36.9; O2SAT 98
[2023-11-13] MEDS: Potassium Chloride Oral Tablet 20 MEQ PO (08:21)
[2023-11-13 09:00] VITALS: RESP 18
--- NOTE | 2023-11-13 10:38 | CASEMGMT ---
ANISH KIRKPATRICK Assessment: Face to Face with pt for initial transition planning/care coordination assessment. ANISH KIRKPATRICK introduced self and role at [facility], pt voices understanding and consents to assessment. Pt is A&O x4 and answers all questions appropriately at this time. Pt lying in bed in no distress. Care providers, pharmacy, and demographics verified/updated. Admitting Dx: recurrent UTI with sepsis PCP:Ricky Specialists: Em, uro; Nitza, ID; Byron, nephro; HARPERG, cardio Preferred Pharmacy: [facility] Retail Insurance: [employer] Prescription Benefit: yes LNOK: Maxine Delong, dtr; Liudmila Delong, granddtr Living Arrangements: Pt lives with dtr and 2 granddtrs in a two story home with 2-3 steps to enter with a rail. Pt reports she is I in ADL's and denies concerns at home. Transportation: Pt does not drive and her dtrs transport her to medical appts. DME:w/c HHC/SNF: [facility] HHC in the past, denies SNF stays. Pt states no concerns with going home at time of dc. Pt denies any need for therapy. States she has access to a FWW if she should need it. She states she does her own therapy at home. Pt states no further concerns/needs. CM to follow. Advised pt to ask CM if any further question/concerns/needs arise, voices understanding. Pt Goal: Home Plan: Home
--- NOTE | 2023-11-13 10:58 | DS.PCM_ITS ---
Providers Date of Admission: 11/10/23 Primary Care Physician: Dr. Gerardo García MD Consultations 11/10/23 23:07 Consult: Infectious Disease Routine Consulting Provider: Ky Goddard Reason for Consult: UTI with recurrent sepsis EMERGENT Consult: No MD Notified: No Date Notified: 11/10/23 Time Notified: 23:07 Reason For Visit: RECURRENT UTI WITH SEPSIS Diagnosis Discharge Diagnosis (1) Acute UTI: Status: Acute Code(s): N39.0 - Urinary tract infection, site not specified (2) Sepsis: Status: Acute Code(s): A41.9 - Sepsis, unspecified organism Qualifiers: Sepsis type: sepsis due to unspecified organism Sepsis acute organ dy sfunction status: without acute organ dysfunction Qualified Code(s): A41.9 - Sepsis, unspecified organism (3) Chronic kidney disease: Status: Chronic Code(s): N18.9 - Chronic kidney disease, unspecified Qualifiers: Chronic kidney disease stage: stage 4 (severe) Qualified Code(s): N18.4 - Chronic kidney disease, stage 4 (severe) (4) Leukocytosis: Status: Acute Code(s): D72.829 - Elevated white blood cell count, unspecified Qualifiers: Leukocytosis type: unspecified Qualified Code(s): D72.829 - Elevated white blood cell count, unspecified Plan Patient presents with recurrent UTI. Patient had been on cephalexin. Urinalysi s was positive, her with urine culture showed mixed gram-positive organisms. Unclear if culture was skewed by her previous antibiotic usage. Patient had previously had organisms are sensitive to cephalexin. Patient was placed on meropenem and linezolid initially but linezolid was discontinued. Patient overall is feeling better. Patient does have ureteral stents in place. Unclear if these are a nidus for recurrent infections. But based on her last culture, patient did have E. coli that was sensitive to nitrofurantoin resistant to cephalosporins. Will discharge her with Macrobid this patient does have allergies to Bactrim and fluoroquinolones. Patient advised to follow-up with urology as outpatient. Acute UTI * Uncomplicated. * Failed outpt abx w cephalexin. * qSOFA 0 on admission. Therefore, sepsis not present. * Continue meropenem. DC linezolid. H/O Klebsiella pneumonia treated with cephalexin. More recently E. coli. Follow up cultures. * UCx mixed GPO. Given presentation, would elect to continue to treat with abx. Likely change to nitrofurantoin. (E. coli that she had last month was sensitive.) * Patient does have ureteral stents placed. Concerned that this could be leadi ng to recurrent infections. Advised patient follow-up with Dr. Strickland as outpatient. Tachycardia * resolved * sinus on telemetry. Likely secondary to underlying infection. Will give an additional liter of IVF. Chronic conditions: * Chronic kidney disease stage IIIb-IV; with history of atriovenostomy for renal dialysis in September 2021, * Essential hypertension continue amlodpidine * Hyperlipidemia (with history of anaphylaxis to statins) * Hypothyroidism - levothyroxine * Previous history of tobacco abuse * History of mild intermittent asthma - Stable with no evidence of acute flare at this time. BDs PRN. * Chronic gout - Stable no evidence of acute flare. DVT prophylaxis - Lovenox 30 mg sq daily Medications at Discharge Home Medications albuterol sulfate 90 mcg/actuation aerosol inhaler (Ventolin HFA) 2 puff inhalation Q6H PRN Sob &/Or Wheezing 07/25/18 potassium chloride 20 mEq tablet,extended release(part/cryst) 20 meq PO DAILY supplement 09/01/20 amlodipine 2.5 mg tablet 2.5 mg PO DAILY BP #90 tabs 08/12/21 ipratropium bromide 42 mcg (0.06 %) nasal spray 2 spray intranasal DAILY allergie 11/23/21 pantoprazole 40 mg tablet,delayed release 40 mg PO DAILY GERD 03/27/23 nitrofurantoin monohydrate/macrocrystals 100 mg capsule (Macrobid) 100 mg PO Q12H 5 days #10 caps 11/13/23 Hospital Course Operations None Procedures None Summary of Care Provided Minutes Spent on Discharge: 35 Weight / BMI Weight Weight: 77.8 kg Body Mass Index (BMI) 26.0 ABG / Lab / Microbiology Data 11/13/23 07:00 11/13/23 07:00 Laboratory: Laboratory Results - last 24 hr 11/13/23 06:10: WBC Cancelled, Corrected WBC Cancelled, RBC Cancelled, Hgb Cancelled, Hct Cancelled, MCV Cancelled, MCH Cancelled, MCHC Cancelled, RDW Std Deviation Cancelled, RDW Coeff of Dewey Cancelled, Plt Count Cancelled, MPV Cancelled, Immature Gran % (Auto) Cancelled, Neut % (Auto) Cancelled, Lymph % (Auto) Cancelled, Brule % (Auto) Cancelled, Eos % (Auto) Cancelled, Baso % (Auto) Cancelled, Absolute Neuts (auto) Cancelled, Absolute Lymphs (auto) Cancelled, To matthew Counted Cancelled, Neutrophils % (Manual) Cancelled, Band Neutrophils % Cancelled, Lymphocytes % (Manual) Cancelled, Monocytes % (Manual) Cancelled, Eosinophils % (Manual) Cancelled, Basophils % (Manual) Cancelled, Metamyelocytes % Cancelled, Myelocytes % Cancelled, Promyelocytes % Cancelled, Blast Cells % Cancelled, Plasma Cell % (Manual) Cancelled, Other Cells % Cancelled, Nucleated RBC % Cancelled, Nucleated RBCs/100 WBC Cancelled, Differential Comment Cancelled, Diff Path Review Cancelled, Hypersegmented Neuts Cancelled, Atypical Lymphocytes Cancelled, Reactive Lymphocytes Cancelled, Smudge Cells Cancelled, Toxic Granulation Cancelled, Toxic Vacuolation Cancelled, Dohle Bodies Cancel led, Su Rods Cancelled, Platelet Estimate Cancelled, Plt Morphology Comment Cancelled, RBC Morphology Cancelled 11/13/23 06:10: RBC Morphology Cancelled, Polychromasia Cancelled, Hypochromasia Cancelled, Poikilocytosis Cancelled, Basophilic Stippling Cancelled, Anisocytosis Cancelled, Microcytosis Cancelled, Macrocytosis Cancelled, Spherocytes Cancelled, Sickle Cells Cancelled, Target Cells Cancelled, Tear Drop Cells Cancelled, Ovalocytes Cancelled, Stomatocytes Cancelled, [place] Bodies Cancelled, [place] Cells Cancelled, Bite Cells Cancelled, Crenated Cell Cancelled, Acanthocytes (Spur) Cancelled, Rouleaux Cancelled, Schistocytes Cancelled, Sodium Cancelled, Potassium Cancelled, Chloride Cancelled, Carbon Dioxide Cancelled, Anion Gap Cancelled, BUN Cancelled, Creatinine Cancelled, Estim Creat Clear Calc Cancelled, Est GFR (MDRD) Af Amer Cancelled, Est GFR (MD RD) Non-Af Cancelled, BUN/Creatinine Ratio Cancelled, Glucose Cancelled, Calcium Cancelled, Total Bilirubin Cancelled, AST Cancelled, ALT Cancelled, Alkaline Phosphatase Cancelled, Total Protein Cancelled, Albumin Cancelled, Globulin Cancelled, Albumin/Globulin Ratio Cancelled 11/13/23 07:00: WBC 18.3 H, RBC 3.11 L, Hgb 9.5 L, Hct 30.7 L, MCV 98.7, MCH 30.5, MCHC 30.9 L, RDW Std Deviation 55.6 H, RDW Coeff of Dewey 15.5 H, Plt Count 310, MPV 10.1, Immature Gran % (Auto) 1.100 H, Neut % (Auto) 74.1 H, Lymph % (Auto) 19.0, Brule % (Auto) 4.5, Eos % (Auto) 1.0, Baso % (Auto) 0.3, Absolute Neuts (auto) 13.5 H, Absolute Lymphs (auto) 3.47, Nucleated RBC % 0, Sodium 139, Potassium 3.7, Chloride 112 H, Carbon Dioxide 16.0 L, Anion Gap 11, BUN 25 H, Creatinine 4.04 H, Estim Creat Clear Calc 12.88, Est GFR (MDRD) Af Amer 14 L, Est GFR (MDRD) Non-Af 12 L, BUN/Creatinine Ratio 6.2 L, Glucose 83, Calcium 6.7 L, Total Bilirubin 0.50, AST 11 L, ALT < 6 L, Alkaline Phosphatase 90, Total Protein 6.2 L, Albumin 1.6 L, Globulin 4.6 H, Albumin/Globulin Ratio 0.3 L Microbiology: Microbiology 11/10/23 20:40 Blood Culture (Wb) - Right Hand Blood Culture - Preliminary No growth in 48 hours. 11/10/23 20:25 Blood Culture (Wb) - Anticubital Right Blood Culture - Preliminary No growth in 48 hours. 11/10/23 20:15 Urine, Clean Catch Urine Culture - Final Mixed Gram Positive Organisms D/C Instructions Discharge Diet: No restrictions Meaningful Use Info Meaningful Use Diagnoses (Choose all that apply): None applicable Discharge Plan Admission Admit Date/Time: 11/10/23 23:00 Primary Reason for Your Visit: Urinary tract infection. Attending Provider: Rafa Lofton Primary Care Provider: Gerardo García Chi Consulting Providers: Andres Maurer Instructions Additional Instructions / Restrictions: He had a recurrent urinary tract infection. You will be on nitrofurantoin. Please follow-up with Dr. Em as it may be concerning that your stents may be chronically infected and could lead to potential recurrent urinary tract infections in the future. Discharge Orders/Prescriptions Prescriptions: New nitrofurantoin monohyd/m-cryst [Macrobid] 100 mg capsule 100 mg PO Q12H 5 Days Qty: 10 0RF Rx Instructions: must administer with a meal/food Continued albuterol sulfate [Ventolin HFA] 90 mcg/actuation HFA aerosol inhaler 2 puff INHALATION Q6H PRN (Reason: Sob &/Or Wheezing) pantoprazole 40 mg tablet,delayed release (DR/EC) 40 mg PO DAILY Hold Instructions: Order Completed potassium chloride 20 MEQ tablet,ER particles/crystals 20 meq PO DAILY ipratropium bromide 42 mcg (0.06 %) spray,non-aerosol 2 spray INTRANASAL DAILY amlodipine 2.5 mg tablet 2.5 mg PO DAILY Qty: 90 3RF Discontinued cephalexin 500 mg capsule 500 mg PO Q6H Qty: 40 0RF cephalexin [cephalexin] 500 mg capsule 500 mg PO Q6 Qty: 20 0RF Referrals / Follow Up: Joshua Strickland MD [Med Staff - Active Staff] - Within 1 Month Gerardo García Chi, MD [Primary Care Provider] - Within 2 Weeks Disposition Disposition (needs filled in before D/C Order can be placed): Home, Self Care Charges/Coding Visit Charges Inpatient E&M: 44360 Disch Hosp >30min
[2023-11-13] MEDS: Meropenem 500 MG in 0.9% Normal Saline (50mL MB+) 50 ML 330 MG IV (11:03)
[2023-11-13] MEDS: Pantoprazole Sodium 40 MG Tablet PO (11:03)
[2023-11-13] MEDS: amLODIPine 2.5 MG Tablet PO (11:03)
[2023-11-13] MEDS: Ipratropium Bromide 0.06% NASAL SPRAY 2 SPRAY NASAL (11:04)
[2023-11-13 13:07] VITALS: BP 129/80; PULSE 76; RESP 18; TEMP 37.2; O2SAT 98
== END 2023-11-13 13:15 | disposition home or self-care (01) | DRG 690 ==
LOC: ED 21:51 → MS3 23:32
PROVIDERS: Admitting Provider Internal Medicine; Emergency Provider Emergency Medicine; PCP Family Medicine Geriatric Medicine
DX: N30.00 Acute cystitis without hematuria (principal); N18.4 Chronic kidney disease, stage 4 (severe); E03.9 Hypothyroidism, unspecified; I12.9 Hypertensive chronic kidney disease with stage 1 through stage 4 chronic kidney disease, or unspecified chronic kidney disease; E78.5 Hyperlipidemia, unspecified; M1A.9XX0 Chronic gout, unspecified, without tophus (tophi); Z96.0 Presence of urogenital implants; Z79.2 Long term (current) use of antibiotics; Z79.899 Other long term (current) drug therapy; Z87.440 Personal history of urinary (tract) infections; Z86.14 Personal history of Methicillin resistant Staphylococcus aureus infection; Z86.16 Personal history of COVID-19; Z86.19 Personal history of other infectious and parasitic diseases; Z87.891 Personal history of nicotine dependence
CPT/HCPCS: 36415; 80048; 80053; 81001; 83605; 85025; 87040; 87086; 87088; 99283; J2020; J2185; J7030; J7040; J7050; A4216; J2405

== ENCOUNTER 2023-11-16 16:12 | Emergency (ER) | payer MEDICARE, SELFPAY ==
[2023-11-16 16:14] VITALS: BP 128/69; PULSE 115; RESP 19; TEMP 37.7; O2SAT 96; BMI 26.4
--- NOTE | 2023-11-16 16:48 | EX.ED.DYSGE1 ---
HPI History of Present Illness Chief Complaint: General Illness [facility] Medical History Acute diarrhea LULY (acute kidney injury) Asthma Dunbar's palsy Bilateral hydronephrosis Bladder disease Blood disorder Bruising Cancer Cardiology follow-up encounter Cervical cancer Chronic renal failure, stage 4 (severe) Dialysis patient Easy bruising Essential hypertension Former smoker Gout High anion gap metabolic acidosis History of biliary stent insertion History of cervical cancer History of Clostridium difficile infection History of COVID-19 History of irregular heartbeat History of renal disease Hx of cataract Hx of echocardiogram Hx of vertigo Hyperlipidemia Hypertension Hypokalemia Hyponatremia Kidney disease Leg cramps Lymphocytosis Mild intermittent asthma MRSA infection Near syncope Problem with dialysis access Sepsis Status post placement of implantable loop recorder (~03/29/20) Thyroid disease Urinary incontinence UTI (urinary tract infection) Wears dentures Home Medications albuterol sulfate 90 mcg/actuation aerosol inhaler (Ventolin HFA) 2 puff inhalation Q6H PRN Sob &/Or Wheezing 07/25/18 [History Last Taken 11/10/23] potassium chloride 20 mEq tablet,extended release(part/cryst) 20 meq PO DAILY supplement 09/01/20 [History Last Taken 11/10/23] amlodipine 2.5 mg tablet 2.5 mg PO DAILY BP #90 tabs 08/12/21 [Rx Last Taken 11/10/23] ipratropium bromide 42 mcg (0.06 %) nasal spray 2 spray intranasal DAILY allergie 11/23/21 [History Last Taken 11/10/23] pantoprazole 40 mg tablet,delayed release 40 mg PO DAILY GERD 03/27/23 [History Last Taken 11/10/23] nitrofurantoin monohydrate/macrocrystals 100 mg capsule (Macrobid) 100 mg PO Q12H 5 days #10 caps 11/13/23 [Rx Last Taken Unknown] Allergy/AdvReac Type Severity Reaction Status Date / Time clindamycin Allergy Severe unsure of Verified 11/10/23 20:07 reaction pravastatin Allergy Severe Chest Verified 11/10/23 20:07 tightness procaine [From Novocain] Allergy Severe NEEDS Verified 11/10/23 20:07 FOLLOW-UP sulfamethoxazole Allergy Severe Shortness Verified 10/09/23 13:34 [From Bactrim] of breath trimethoprim [From Bactrim] Allergy Severe Shortness Verified 11/10/23 20:07 of breath levofloxacin [From Levaquin] Allergy UNSURE OF Verified 11/10/23 20:07 REACTION Ffavhrw-SAJ-MaV Reductase Allergy Anaphylaxis Verified 11/10/23 20:07 Inhibitor methylprednisolone AdvReac Severe Pain in Verified 11/10/23 20:07 joints Family History Father , 32 yrs old CAD (coronary artery disease) History of coronary artery bypass surgery Mother Cancer Lung CA, Hx tobacco use. Surgical History History of arteriovenostomy for renal dialysis (~09/2021) History of cardiac catheterization (~01/08/18) History of cardiac catheterization History of cholecystectomy History of excision of mass History of hysterectomy History of loop recorder history of radium implant Hx of cystoscopy S/P arteriovenous (AV) fistula creation Social History household members: spouse and children number of children: 6 current occupational status: retired history of recent travel: No Smoking Status: Former smoker second hand exposure: No alcohol intake: never substance use type: does not use what type of physical activity do you participate in: walking saurabh/restorationist: Non-Congregation/Independent seatbelt use: always do you feel safe at home: Yes additional social history: - Fernando EXAM Physical Exam Const Vital Signs: 11/16/23 16:14 11/16/23 16:23 11/16/23 17:27 Temperature 99.9 F H Temperature Source Temporal Pulse Rate 115 H Respiratory Rate 19 H Respiratory Effort Normal Non-Labored Respiratory Pattern Normal Blood Pressure 128/69 H Blood Pressure Mean 88 Pulse Ox 96 95 Oxygen Delivery Method Room Air Room Air 11/16/23 19:12 Temperature 98.7 F Temperature Source Temporal Pulse Rate 100 Respiratory Rate 17 Respiratory Effort Respiratory Pattern Blood Pressure 137/81 H Blood Pressure Mean 99 Pulse Ox 97 Oxygen Delivery Method Room Air MDM MDM MDM Narrative Medical decision making narrative: HISTORY OF PRESENT ILLNESS: 73-year-old female presents with diffuse weakness in the setting of nausea vomiting diarrhea chills muscle aches. States has been around her grandkids the cold recently is been on multiple antibiotics for UTI. No she is currently on Macrobid for UTI. States has been compliant taking it twice a day. Currently has several days left. She denies focal weakness. No chest pain. No shortness of breath. Notes a cough. REVIEW OF SYSTEMS: Pertinent positives: Diffuse weakness, nausea vomiting diarrhea chills, myalgias Pertinent negatives: Chest pain, headache, focal weakness, slurred speech, abdominal pain, chest pain, SOB PHYSICAL EXAM: Nursing triage notes reviewed, Vital signs reviewed Constitutional: please see mdm HENT: MMM Eyes: Pupils equal round and reactive to light, Extraocular muscles intact Neck: No stridor, no JVD, full neck ROM Lungs: Clear to auscultation, No wheezing or rales. No increased work of breathing, no conversational dyspnea, no accessory muscle use, no nasal flaring. No respiratory distress noted Heart: Regular rate and rhythm, No murmurs, No rubs and No gallops, 2+ distal pulses (radial, femoral, posterior tibial) in all extremities Abdomen: Soft, there is no tenderness, rigidity, rebound or guarding, no obvious peritoneal signs, no palpable pulsatile abdominal masses, no auscultated abdominal bruit : No CVAT Extremities: No edema Neuro: No focal neurological deficits, cranial nerves II through XII intact, 5/5 strength in all extremities. Intact sensation to light touch in all extremities, 2+ reflexes bilateral patella tendons. Normal gait. No ataxia. Skin: No rash or lesions noted MEDICAL DECISION MAKING: Chief Complaint: Nausea, vomiting, diarrhea External records reviewed: Last ED visit on 11/10/2023 for acute UTI urine culture from 11/10/2023 shows mixed gram-positive organisms, urine culture from shows mixed gram-positive and gram-negative organisms Factors affecting care: GERD hypertension, Social determinants of health: none History obtained from others: EMS Consults: Internal medicine, transfer center, internal medicine excepting hospital [facility] Narrative: The patient is initially tachycardic, borderline febrile, otherwise hemodynamically stable. Abdominal exam is benign. Nonfocal neuroexam. I considered the following differential diagnosis: COVID, flu, UTI, sepsis, dehydration, electrolyte disturbance I gave the patient 1 L normal saline, she is given Zofran by squad. She was given Tylenol and Toradol for pain and fever relief. I Obtained a broad lab and imaging workup to further elucidate the etiology of his complaint specifically focusing on signs of sepsis such as lactic acidosis, UTI, COVID ALL IMAGES (IF OBTAINED) HAVE BEEN PERSONALLY REVIEWED AND INTERPRETED BY MYSELF. EKG with sinus tachycardia, normal axis, normal intervals, no STEMI CBC with marked leukocytosis suggestive of systemic inflammation, noted mild anemia, no thrombocytopenia I have personally reviewed the patient's chest x-ray. Chest x-ray is unremarkable for pulmonary edema, pneumothorax, pneumonia or focal cardiopulmonary abnormality. Urine with evidence of ongoing urinary inflammation hematuria There is no coagulopathy noted BMP without significant electrode abnormalities, there is no anion gap, there is evidence of metabolic acidosis with a low bicarb, noted baseline CKD BMP with hypocalcemia, will send ionized calcium Ionized calcium low as well. Will give calcium gluconate repletion Lactate is wnl indicating no end-organ hypoperfusion and/or hypoxia. Blood cultures and urine culture pending COVID, flu, RSV was negative The synthesis of the patient's history, physical exam, labs and images suggest evidence of recurrent UTI and failure of outpatient management. Patient CT scan of the abdomen pelvis was consistent with stent malfunction. We do not have urology available. [facility] and as such patient will require transfer to facility with urology for definitive care. She was given antibiotics, calcium was replaced, she was given fluids and Zofran with improvement in nausea. She is appropriate for transfer. Spoke to Vidhya Bates who agreed to accept the patient in transfer. The patient and/or family, caregivers express understanding. The patient and/or family, caregivers agrees with the plan. Shared decision making: I will have a discussion with the patient and or visitors regarding risk/benefits of further testing or admission. They will be made aware of of the risk/benefits inherent in this decision they will be given the opportunity to voice understanding. Total critical care time today provided was at least 0 minutes. This excludes separately billable procedures. Critical care time (if documented) is secondary to the patient having high probability of clinically significant/life threatening deterioration in the patient's condition which required my urgent intervention. Impression: 1. Recurrent UTI 2. Leukocytosis 3. Hypocalcemia 4. CKD 5. Metabolic acidosis Dispo: Transfer to facility with urologic coverage Lab Data Attestation: I reviewed the patient's lab results. Labs: Laboratory Results - last 24 hr 11/16/23 11/16/23 11/16/23 17:40 18:23 18:33 WBC 19.1 H RBC 3.51 L Hgb 11.0 L Hct 34.5 L MCV 98.3 MCH 31.3 MCHC 31.9 L RDW Std Deviation 55.7 H RDW Coeff of Dewey 15.6 H Plt Count TNP MPV 11.2 Immature Gran % (Auto) 1.100 H Neut % (Auto) 75.4 H Lymph % (Auto) 17.[address] [facility] % (Auto) 5.1 Eos % (Auto) 0.2 Baso % (Auto) 0.4 Absolute Neuts (auto) 14.4 H Absolute Lymphs (auto) 3.40 Nucleated RBC % 0 Platelet Estimate ADEQUATE PT 15.1 H INR 1.2 APTT 30.1 Sodium Cancelled 136 Potassium Cancelled 4.7 Chloride Cancelled 112 H Carbon Dioxide Cancelled 15.0 L Anion Gap Cancelled 9 BUN Cancelled 23 H Creatinine Cancelled 3.96 H Estim Creat Clear Calc Cancelled 13.14 Est GFR (MDRD) Af Amer Cancelled 14 L Est GFR (MDRD) Non-Af Cancelled 12 L BUN/Creatinine Ratio Cancelled 5.8 L Glucose Cancelled 92 Lactic Acid Cancelled 0.8 Calcium Cancelled 5.9 L* Ionized Calcium Total Bilirubin Cancelled 0.70 AST Cancelled 16 ALT Cancelled 8 L Alkaline Phosphatase Cancelled 96 Troponin I High Sens Cancelled 16 Total Protein Cancelled 6.9 Albumin Cancelled 1.8 L Globulin Cancelled 5.1 H Albumin/Globulin Ratio Cancelled 0.4 L Urine Color Urine Clarity Urine pH Ur Specific [place] Urine Protein Urine Glucose (UA) Urine Ketones Urine Occult Blood Urine Nitrite Urine Bilirubin Urine Urobilinogen Ur Leukocyte Esterase Urine RBC Urine WBC Ur Squamous Epith Cells Urine Bacteria Urine Mucus 11/16/23 11/16/23 18:49 21:06 WBC RBC Hgb Hct MCV MCH MCHC RDW Std Deviation RDW Coeff of Dewey Plt Count MPV Immature Gran % (Auto) Neut % (Auto) Lymph % (Auto) [facility] % (Auto) Eos % (Auto) Baso % (Auto) Absolute Neuts (auto) Absolute Lymphs (auto) Nucleated RBC % Platelet Estimate PT INR APTT Sodium Potassium Chloride Carbon Dioxide Anion Gap BUN Creatinine Estim Creat Clear Calc Est GFR (MDRD) Af Amer Est GFR (MDRD) Non-Af BUN/Creatinine Ratio Glucose Lactic Acid Calcium Ionized Calcium 3.57 L Total Bilirubin AST ALT Alkaline Phosphatase Troponin I High Sens Total Protein Albumin Globulin Albumin/Globulin Ratio Urine Color Yellow Urine Clarity Sl. Cloudy Urine pH 6.5 Ur Specific [place] 1.005 Urine Protein 30 H Urine Glucose (UA) Normal Urine Ketones Negative Urine Occult Blood 50 H Urine Nitrite Negative Urine Bilirubin Negative Urine Urobilinogen Normal Ur Leukocyte Esterase 500 H Urine RBC 0 SEEN Urine WBC 50-100 SEEN Ur Squamous Epith Cells 0 SEEN Urine Bacteria 0 SEEN Urine Mucus 0 SEEN Radiography Diagnostic Testing: Clinical Impression(s) from Imaging Studies Chest X-Ray 11/16/23 17:51 IMPRESSION: No radiographic evidence of acute cardiopulmonary disease. Electronically Signed: Maddie Ferrera MD at 18:48 EST Reading Location ID and State: [id number] / Tel , Service support , Abdomen/Pelvis CT 11/16/23 20:27 IMPRESSION: Severe bilateral hydronephrosis and hydroureter demonstrated interval progression despite bilateral double-J ureteral stents unchanged in position. No radiodense urolithiasis. Prominent nonspecific retroperitoneal lymphadenopathy. Electronically Signed: Janes Womack MD at 22:07 EST , Discharge Plan Triage Chief Complaint: General Illness ED Provider: Brian Mckee Dx/Rx/DC Orders Prescriptions: No Action albuterol sulfate [Ventolin HFA] 90 mcg/actuation HFA aerosol inhaler 2 puff INHALATION Q6H PRN (Reason: Sob &/Or Wheezing) pantoprazole 40 mg tablet,delayed release (DR/EC) 40 mg PO DAILY Hold Instructions: Order Completed potassium chloride 20 MEQ tablet,ER particles/crystals 20 meq PO DAILY ipratropium bromide 42 mcg (0.06 %) spray,non-aerosol 2 spray INTRANASAL DAILY nitrofurantoin monohyd/m-cryst [Macrobid] 100 mg capsule 100 mg PO Q12H 5 Days Qty: 10 0RF Rx Instructions: must administer with a meal/food amlodipine 2.5 mg tablet 2.5 mg PO DAILY Qty: 90 3RF Primary Care Provider: Gerardo García Chi Referrals: Gerardo García Chi, MD [Primary Care Provider] - Disposition Disposition: Acute Care Hospital Discharge Location: [facility]
[2023-11-16 17:27] VITALS: O2SAT 95
[2023-11-16] MEDS: 0.9% Normal Saline (1000mL) 1,000 ML 999 ML IV (17:43)
[2023-11-16] MEDS: Acetaminophen 325 MG Tablet PO (17:45)
[2023-11-16] MEDS: Ketorolac 15 MG/ML Vial IV (17:46)
--- NOTE | 2023-11-16 17:51 | RAD_ITS ---
INDICATION: SOB EXAMINATION/TECHNIQUE: X-RAY - XR Chest 1 View COMPARISON: 08/02/2023. FINDINGS: LINES/DEVICES: None. LUNGS: No consolidation, edema or effusion. No pneumothorax. MEDIASTINUM AND CARDIOVASCULAR STRUCTURES: Cardiac silhouette not enlarged. Central airways and mediastinal contour are unremarkable. Loop recorder on the left. BONES AND SOFT TISSUES: Unremarkable. RAD/Chest 1 View (Portable) IMPRESSION: No radiographic evidence of acute cardiopulmonary disease. Electronically Signed: Maddie Ferrera MD at 18:48 EST Reading Location ID and State: [id number] / Tel , Service support ,
[2023-11-16 17:56] LABS: Absolute Neutrophil Count 14.4 X10^3/uL (2.0-7.7); Basophil# 0.07 X10^3/uL; Basophil% 0.4 % (0-1); Eosinophil# 0.04 X10^3/uL; Eosinophils% 0.2 % (0-5); Hematocrit 34.5 % (37-47); Lymphocyte % 17.8 % (19-41); Mean Corp Hgb Conc 31.9 g/dL (32-36); Mean Corpuscular Hgb 31.3 pg (27.0-32.0); Mean Corpuscular Volume 98.3 fL (81-99); Mean Platelet Vol. 11.2 fl (6.2-12.0); Monocyte# 0.98 X10^3/uL; Monocyte% 5.1 % (0-10); NRBC Flagged by Analyzer 0 % (0-5); Neutrophil % 75.4 % (47-70); POSITIVE COUNT YES; RBC Distribution Width CV 15.6 % (11.6-14.6); RBC Distribution Width SD 55.7 fl (35.1-43.9); Red Blood Count 3.51 M/mm3 (4.2-5.4); White Blood Count 19.1 K/mm3 (4.4-11.0)
[2023-11-16 18:01] LABS: Differential Indicated SCAN CRITERIA MET
[2023-11-16 18:03] LABS: Platelet Estimate ADEQUATE (ADEQ)
--- NOTE | 2023-11-16 18:20 | NURSING ---
CHEMISTRIES HEMOLIZED, NEEDS REDRAWN
[2023-11-16 18:48] LABS: International Normalized Ratio 1.2; Partial Thromboplast Time 30.1 Seconds (24.1-36.2); Prothrombin Time (Protime)PT. 15.1 SECONDS (11.7-14.9)
[2023-11-16 18:53] LABS: Bacteria 0 SEEN /hpf (None Seen); Mucous, Urine 0 SEEN /hpf (<or=2+); Red Blood Cells-Urine 0 SEEN /hpf (0-5); Squamous Epithelial Cells - UA 0 SEEN /hpf (5-10)
[2023-11-16 18:56] LABS: Color, Urine Yellow (Yellow); Glucose, Dipstick Normal (Normal); Ketone-Dipstick Negative (Negative); Leukocyte Esterase-Dipstick 500 /ul (Negative); Nitrite-Dipstick Negative (Negative); Occult Blood-Urine 50 /ul (Negative); Protein-Dipstick 30 mg/dl (Negative); Specific Gravity, Urine 1.005 (1.002-1.030); Urine Bilirubin Dipstick Negative (Negative); Urine Clarity Sl. Cloudy (Clear); Urine Urobilinogen Normal (Normal); Urine pH 6.5 (5.0 - 8.0)
[2023-11-16 19:02] LABS: White Blood Cells 50-100 SEEN /hpf (0-5)
[2023-11-16 19:12] VITALS: BP 137/81; PULSE 100; RESP 17; TEMP 37.1; O2SAT 97
[2023-11-16 19:33] LABS: ALB/GLOB Ratio 0.4 RATIO (0.9-2.4); AST(SGOT) 16 U/L (15-37); Alanine Aminotransfer ALT/SGPT 8 U/L (13-56); Albumin, Serum 1.8 g/dL (3.2-5.0); Alkaline Phosphatase 96 U/L (45-117); Anion Gap 9 (5-15); BUN 23 mg/dL (7-18); BUN/Creat Ratio 5.8 RATIO (10-20); Calcium,Total 5.9 mg/dL (8.5-10.1); Chloride 112 mmol/L (98-107); Creatinine, Serum 3.96 mg/dL (0.55-1.02); EST Glomerular Filtration Rate 12 mL/min (>60); Est Glom Filt Rate - Afr Amer 14 mL/min (>60); Estimated Creatinine Clearance 13.14 ml/min; Globulin 5.1 g/dL (2.2-4.2); Glucose 92 mg/dL (74-106); Lactic Acid 0.8 mmol/L (0.4-1.9); Potassium 4.7 mmol/L (3.5-5.1); Protein, Total 6.9 g/dL (6.4-8.2); Sodium Level 136 mmol/L (136-145); Troponin-I HS 16 pg/mL (3.0-54.0)
[2023-11-16] MEDS: Ceftriaxone 1 GM/50 ML BAG IV (19:58)
--- NOTE | 2023-11-16 20:22 | PCM.HP.STD ---
HPI - General HPI Narrative TODD HERRERA, is a 73 F who presents [facility], [facility]–1983 Medical History Acute diarrhea LULY (acute kidney injury) Asthma Dunbar's palsy Bilateral hydronephrosis Bladder disease Blood disorder Bruising Cancer Cardiology follow-up encounter Cervical cancer Chronic renal failure, stage 4 (severe) Dialysis patient Easy bruising Essential hypertension Former smoker Gout High anion gap metabolic acidosis History of biliary stent insertion History of cervical cancer History of Clostridium difficile infection History of COVID-19 History of irregular heartbeat History of renal disease Hx of cataract Hx of echocardiogram Hx of vertigo Hyperlipidemia Hypertension Hypokalemia Hyponatremia Kidney disease Leg cramps Lymphocytosis Mild intermittent asthma MRSA infection Near syncope Problem with dialysis access Sepsis Status post placement of implantable loop recorder (~03/29/20) Thyroid disease Urinary incontinence UTI (urinary tract infection) Wears dentures Home Medications albuterol sulfate 90 mcg/actuation aerosol inhaler (Ventolin HFA) 2 puff inhalation Q6H PRN Sob &/Or Wheezing 07/25/18 [History Last Taken 11/10/23] potassium chloride 20 mEq tablet,extended release(part/cryst) 20 meq PO DAILY supplement 09/01/20 [History Last Taken 11/10/23] amlodipine 2.5 mg tablet 2.5 mg PO DAILY BP #90 tabs 08/12/21 [Rx Last Taken 11/10/23] ipratropium bromide 42 mcg (0.06 %) nasal spray 2 spray intranasal DAILY allergie 11/23/21 [History Last Taken 11/10/23] pantoprazole 40 mg tablet,delayed release 40 mg PO DAILY GERD 03/27/23 [History Last Taken 11/10/23] nitrofurantoin monohydrate/macrocrystals 100 mg capsule (Macrobid) 100 mg PO Q12H 5 days #10 caps 11/13/23 [Rx Last Taken Unknown] Allergy/AdvReac Type Severity Reaction Status Date / Time clindamycin Allergy Severe unsure of Verified 11/10/23 20:07 reaction pravastatin Allergy Severe Chest Verified 11/10/23 20:07 tightness procaine [From Novocain] Allergy Severe NEEDS Verified 11/10/23 20:07 FOLLOW-UP sulfamethoxazole Allergy Severe Shortness Verified 10/09/23 13:34 [From Bactrim] of breath trimethoprim [From Bactrim] Allergy Severe Shortness Verified 11/10/23 20:07 of breath levofloxacin [From Levaquin] Allergy UNSURE OF Verified 11/10/23 20:07 REACTION [id number] Reductase Allergy Anaphylaxis Verified 11/10/23 20:07 Inhibitor methylprednisolone AdvReac Severe Pain in Verified 11/10/23 20:07 joints Family History Father , 32 yrs old CAD (coronary artery disease) History of coronary artery bypass surgery Mother Cancer Lung CA, Hx tobacco use. Surgical History History of arteriovenostomy for renal dialysis (~09/2021) History of cardiac catheterization (~01/08/18) History of cardiac catheterization History of cholecystectomy History of excision of mass History of hysterectomy History of loop recorder history of radium implant Hx of cystoscopy S/P arteriovenous (AV) fistula creation Social History household members: spouse and children number of children: 6 current occupational status: retired history of recent travel: No Smoking Status: Former smoker second hand exposure: No alcohol intake: never substance use type: does not use what type of physical activity do you participate in: walking saurabh/restorationism: Non-Sikh/Independent seatbelt use: always do you feel safe at home: Yes additional social history: - Fernando Vital Signs Vital Signs Vital Signs: 11/16/23 16:14 11/16/23 16:23 11/16/23 17:27 Temperature 99.9 F H Temperature Source Temporal Pulse Rate 115 H Respiratory Rate 19 H Respiratory Effort Normal Non-Labored Respiratory Pattern Normal Blood Pressure 128/69 H Blood Pressure Mean 88 Pulse Ox 96 95 Oxygen Delivery Method Room Air Room Air 11/16/23 19:12 Temperature 98.7 F Temperature Source Temporal Pulse Rate 100 Respiratory Rate 17 Respiratory Effort Respiratory Pattern Blood Pressure 137/81 H Blood Pressure Mean 99 Pulse Ox 97 Oxygen Delivery Method Room Air Weight Weight: 78.9 kg Body Mass Index (BMI) 26.4 Results Lab / Micro Data 11/16/23 17:40 11/16/23 18:33 Labs: Laboratory Results - last 24 hr 12/29/23 17:40: WBC 19.1 H, RBC 3.51 L, Hgb 11.0 L, Hct 34.5 L, MCV 98.3, MCH 31.3, MCHC 31.9 L, RDW Std Deviation 55.7 H, RDW Coeff of [place] 15.6 H, Plt Count TNP, MPV 11.2, Immature Gran % (Auto) 1.100 H, Neut % (Auto) 75.4 H, Lymph % (Auto) 17.8 L, [place] % (Auto) 5.1, Eos % (Auto) 0.2, Baso % (Auto) 0.4, Absolute Neuts (auto) 14.4 H, Absolute Lymphs (auto) 3.40, Nucleated RBC % 0, Platelet Estimate ADEQUATE, Sodium Cancelled, Potassium Cancelled, Chloride Cancelled, Carbon Dioxide Cancelled, Anion Gap Cancelled, BUN Cancelled, Creatinine Cancelled, Estim Creat Clear Calc Cancelled, Est GFR (MDRD) Af Amer Cancelled, Est GFR (MDRD) Non-Af Cancelled, BUN/Creatinine Ratio Cancelled, Glucose Cancelled, Lactic Acid Cancelled, Calcium Cancelled, Total Bilirubin Cancelled, AST Cancelled, ALT Cancelled, Alkaline Phosphatase Cancelled, Troponin I High Sens Cancelled, Total Protein Cancelled, Albumin Cancelled, Globulin Cancelled, Albumin/Globulin Ratio Cancelled 11/16/23 18:23: PT 15.1 H, INR 1.2, APTT 30.1 11/16/23 18:33: Sodium 136, Potassium 4.7, Chloride 112 H, Carbon Dioxide 15.0 L, Anion Gap 9, BUN 23 H, Creatinine 3.96 H, Estim Creat Clear Calc 13.14, Est GFR (MDRD) Af Amer 14 L, Est GFR (MDRD) Non-Af 12 L, BUN/Creatinine Ratio 5.8 L, Glucose 92, Lactic Acid 0.8, Calcium 5.9 L*, Total Bilirubin 0.70, AST 16, ALT 8 L, Alkaline Phosphatase 96, Troponin I High Sens 16, Total Protein 6.9, Albumin 1.8 L, Globulin 5.1 H, Albumin/Globulin Ratio 0.4 L 11/16/23 18:49: Urine Color Yellow, Urine Clarity Sl. Cloudy, Urine pH 6.5, Ur Specific [place] 1.005, Urine Protein 30 H, Urine Glucose (UA) Normal, Urine Ketones Negative, Urine Occult Blood 50 H, Urine Nitrite Negative, Urine Bilirubin Negative, Urine Urobilinogen Normal, Ur Leukocyte Esterase 500 H, Urine RBC 0 SEEN, Urine WBC 50-100 SEEN, Ur Squamous Epith Cells 0 SEEN, Urine Bacteria 0 SEEN, Urine Mucus 0 SEEN Imagaing Radiology Impression Chest X-Ray 11/16/23 17:51 IMPRESSION: No radiographic evidence of acute cardiopulmonary disease. Electronically Signed: Maddie Ferrera MD at 18:48 EST Reading Location ID and State: [id number] / Tel , Service support ,
--- NOTE | 2023-11-16 20:27 | CT_ITS ---
STUDY: CT ABDOMEN AND PELVIS WITHOUT CONTRAST REASON FOR EXAM: Female, 73 years old. abdominal pain RADIATION DOSAGE (If Supplied By Facility): CTDIvol = ( 7.16 ) mGy, DLP = ( 352.22 ) mGycm TECHNIQUE: Transaxial images were obtained from the dome of the diaphragm to the symphysis pubis without oral contrast, and without intravenous contrast. Sagittal and coronal images were reconstructed. Individualized dose optimization techniques were used for this CT. COMPARISON: October 09, 2023 CT abdomen and pelvis FINDINGS: The visualized lung bases are unremarkable. Calcific coronary artery disease. Normal liver. Normal gallbladder and extrahepatic biliary system. Normal spleen. Normal pancreas. Normal bilateral adrenal glands. Severe bilateral hydronephrosis demonstrated interval progression. Bilateral double-J ureteral stents unchanged in position. Bilateral hydroureter. No radiodense urolithiasis noted. Small hiatal hernia. Normal small intestine. Normal colon. Appendix is not identified. Calcified plaque along the aorta and its branches. Normal inferior vena cava. Prominent retroperitoneal lymphadenopathy. The largest measures 11 x 24 mm on the left at the level of the kidney. Normal urinary bladder. Normal abdominal wall. Normal osseous structures. CT/Abdomen/Pelvis without Cont IMPRESSION: Severe bilateral hydronephrosis and hydroureter demonstrated interval progression despite bilateral double-J ureteral stents unchanged in position. No radiodense urolithiasis. Prominent nonspecific retroperitoneal lymphadenopathy. Electronically Signed: Janes Womack MD at 22:07 EST ,
[2023-11-16 21:00] VITALS: PULSE 91
[2023-11-16 21:09] LABS: Ionized Calcium 3.57 mg/dL (4.36-5.20)
[2023-11-16 23:00] VITALS: PULSE 90; RESP 17; O2SAT 97
[2023-11-17] MEDS: Calcium Gluconate 1 GM/10 ML Vial IVP (00:01)
[2023-11-17 01:00] VITALS: PULSE 90; RESP 17; O2SAT 98
[2023-11-17 03:00] VITALS: PULSE 90; RESP 17; O2SAT 97
[2023-11-17 07:00] VITALS: PULSE 91; RESP 16
--- NOTE | 2023-11-17 08:04 | ED.RN ---
CALLED [facility] TO FOLLOW UP ON WAIT BED STATUS AND CONFIRM THEY'RE AWARE THAT WE HAVE NO UROLOGY, TO POSSIBLY PRIORITIZE TRANSFER. THEY SAID THEY ARE AWARE, BUT LIKELY WILL NOT AFFECT WAIT TIME. STATED DISCHARGES WILL HOPEFULLY HAPPEN AROUND NOON TO OPEN UP BED FOR PT. ALSO STATED OUT OF ALL [facility], [facility] WOULD LIKELY BE THE FASTEST.
--- NOTE | 2023-11-17 09:21 | ED.RN ---
[facility] CALLED, ETA 20 MIN
[2023-11-17 09:28] VITALS: BP 131/68; PULSE 97; RESP 22; TEMP 36.7; O2SAT 96
[2023-11-17 09:38] VITALS: BP 131/68; PULSE 97; RESP 22; TEMP 36.7; O2SAT 96
== END 2023-11-17 10:03 | disposition short-term general hospital (02) ==
PROVIDERS: Emergency Provider Emergency Medicine; PCP Family Medicine Geriatric Medicine; Referring Provider Emergency Medicine; Visit Provider Emergency Medicine
DX: N39.0 Urinary tract infection, site not specified (principal); N18.4 Chronic kidney disease, stage 4 (severe); D72.829 Elevated white blood cell count, unspecified; E87.20 Acidosis, unspecified; I12.9 Hypertensive chronic kidney disease with stage 1 through stage 4 chronic kidney disease, or unspecified chronic kidney disease; J45.909 Unspecified asthma, uncomplicated; Z79.899 Other long term (current) drug therapy; Z86.16 Personal history of COVID-19; Z87.891 Personal history of nicotine dependence
CPT/HCPCS: 71045; 74176; 80053; 81001; 82330; 83605; 84484; 85025; 85610; 85730; 87040; 87086; 87088; 87631; 93005; 96365; 96375; 99285; J7050; A4216; J0612

== ENCOUNTER → 2024-02-04 | Outpatient (CLI) | payer MEDICARE, SELFPAY ==
[2024-02-04 12:08] LABS: Absolute Lymphocyte Count 6.11 X10^3/uL (0.83-4.51); Absolute Neutrophil Count 6.7 X10^3/uL (2.0-7.7); Basophil# 0.07 X10^3/uL; Basophil% 0.5 % (0-1); Eosinophil# 0.17 X10^3/uL; Eosinophils% 1.2 % (0-5); Hematocrit 41.6 % (37-47); Hemoglobin 13.3 g/dL (12.0-15.0); Lymphocyte # 6.11 X10^3/ul (0.83-4.51); Lymphocyte % 44.3 % (19-41); Mean Corpuscular Hgb 31.7 pg (27.0-32.0); Mean Corpuscular Volume 99.3 fL (81-99); Mean Platelet Vol. 10.4 fl (6.2-12.0); Monocyte# 0.73 X10^3/uL; Monocyte% 5.3 % (0-10); NRBC Flagged by Analyzer 0 % (0-5); Neutrophil # 6.67 X10^3/uL (2.7-7.7); Neutrophil % 48.3 % (47-70); POSITIVE DIFFERENTIAL YES; Platelet Count 398 K/mm3 (150-450); RBC Distribution Width CV 13.5 % (11.6-14.6); RBC Distribution Width SD 49.2 fl (35.1-43.9); Red Blood Count 4.19 M/mm3 (4.2-5.4); White Blood Count 13.8 K/mm3 (4.4-11.0)
[2024-02-04 12:11] LABS: Vitamin D,25 Hydroxy 56.2 ng/mL
[2024-02-04 12:12] LABS: Differential Indicated SCAN CRITERIA MET
[2024-02-04 12:26] LABS: ALB/GLOB Ratio 0.5 RATIO (0.9-2.4); AST(SGOT) 15 U/L (15-37); Alanine Aminotransfer ALT/SGPT 12 U/L (13-56); Albumin, Serum 2.9 g/dL (3.2-5.0); Alkaline Phosphatase 107 U/L (45-117); Anion Gap 7 (5-15); BUN 20 mg/dL (7-18); BUN/Creat Ratio 10.4 RATIO (10-20); Calcium,Total 8.4 mg/dL (8.5-10.1); Chloride 108 mmol/L (98-107); Cholesterol 173 mg/dL (200); Creatinine, Serum 1.93 mg/dL (0.55-1.02); EST Glomerular Filtration Rate 27 mL/min (>60); Est Glom Filt Rate - Afr Amer 33 mL/min (>60); Globulin 5.5 g/dL (2.2-4.2); Glucose 96 mg/dL (74-106); High Density Lipoprotein 44 mg/dL; Potassium 3.8 mmol/L (3.5-5.1); Protein, Total 8.4 g/dL (6.4-8.2); Sodium Level 140 mmol/L (136-145); Thyroid Stim Hormone (TSH) 3.91 uIU/mL (0.358-3.74); Triglycerides 97 mg/dL; Very Low Density Lipoprotein 19 mg/dL (5-40)
[2024-02-04 13:09] LABS: Differential Comment SCANNED
== END | disposition home or self-care (01) ==
LOC: POLAB3 11:23
PROVIDERS: PCP Family Medicine Geriatric Medicine; Visit Provider Family Medicine Geriatric Medicine
DX: I10 Essential (primary) hypertension (principal); E55.9 Vitamin D deficiency, unspecified; E78.5 Hyperlipidemia, unspecified
CPT/HCPCS: 36415; 80053; 80061; 82306; 84443; 85025

== ENCOUNTER 2024-02-14 16:59 | Inpatient (IN) | payer MEDICARE, SELFPAY ==
[2024-02-14] VITALS (8 sets, daily range): BP systolic 121–136; BP diastolic 49–82; PULSE 99–120; RESP 14–22; TEMP 36.6–37; O2SAT 95–96; BMI 23.6; BMI 24.6
--- NOTE | 2024-02-14 17:30 | EKG12_ITS ---
Test Reason : Blood Pressure : / mmHG Vent. Rate : 108 BPM Atrial Rate : 108 BPM P-R Int : 148 ms QRS Dur : 086 ms QT Int : 336 ms P-R-T Axes : 060 014 067 degrees QTc Int : 450 ms Sinus tachycardia Otherwise normal ECG Confirmed by TARAH CHRISTIAN, DANTE ([id number]), newspaper editor managing RADHA PHILLIPS ([id number]) on 02/18/2024 11:01:17 AM Referred By: Andres Maurer Confirmed By:DANTE RASCON MD
--- NOTE | 2024-02-14 17:40 | EDS_ITS ---
HPI History of Present Illness Chief Complaint: Complaint Detail of Chief Complaint: Shaking chills with documented temperature of 100.1 concern for UTI Informant: patient and spouse/S.O. Onset/Context/Timing Onset: Today and Hours Context: Sudden Onset Timing: Intermittent Quality: Shaking chills Location: Generalized Current Severity: Gone Maximum Severity: Moderate Worsened by: Concern for urinary tract infection Relieved by: Nothing Associated Symptoms Associated Symptoms: Nausea Narrative Narrative: Patient is a 73-year-old woman with recurrent urinary tract infections. She had her right nephrostomy tube reinserted because it fell out. This was performed by IR at [facility]. Her ureteral stents were changed 1 week ago. She also has a left nephrostomy tube. Review of prior records indicates patient had multiple admissions the end of last year for urosepsis. She denies headache, visual, ocular auditory symptoms. She denies rhinorrhea, congestion, postnasal drainage sore throat. She denies cough or shortness of breath. She denies abdominal pain vomiting or diarrhea. She does endorse nausea. She does not urinate. She denies gynecologic symptoms. She does have history of allergy to sulfa and levofloxacin. She also has a reaction to clindamycin. She is uncertain what the reaction was. She informed that the radiologist did administer dose of antibiotics yesterday. She is uncertain what she was given. There is no records on [facility]. Prior similar symptoms: Yes Recent Illness/Hospitalization: No PFSH PFS Medical History Acute diarrhea LULY (acute kidney injury) Asthma Dunbar's palsy Bilateral hydronephrosis Bladder disease Blood disorder Bruising Cancer Cardiology follow-up encounter Cervical cancer Chronic kidney disease Chronic renal failure, stage 4 (severe) Dialysis patient Easy bruising Essential hypertension Former smoker Gout High anion gap metabolic acidosis History of biliary stent insertion History of cervical cancer History of Clostridium difficile infection History of COVID-19 History of irregular heartbeat History of renal disease Hx of cataract Hx of echocardiogram Hx of vertigo Hyperlipidemia Hypertension Hypokalemia Hyponatremia Kidney disease Leg cramps Leukocytosis Lymphocytosis Mild intermittent asthma MRSA infection Near syncope Problem with dialysis access Status post placement of implantable loop recorder (~03/29/20) Thyroid disease Urinary incontinence UTI (urinary tract infection) Wears dentures Home Medications albuterol sulfate 90 mcg/actuation aerosol inhaler (Ventolin HFA) 2 puff inhalation Q6H PRN Sob &/Or Wheezing 07/25/18 [History Last Taken 11/10/23] potassium chloride 20 mEq tablet,extended release(part/cryst) 20 meq PO DAILY supplement 09/01/20 [History Last Taken 11/10/23] amlodipine 2.5 mg tablet 2.5 mg PO DAILY BP #90 tabs 08/12/21 [Rx Last Taken 11/10/23] ipratropium bromide 42 mcg (0.06 %) nasal spray 2 spray intranasal DAILY allergie 11/23/21 [History Last Taken 11/10/23] pantoprazole 40 mg tablet,delayed release 40 mg PO DAILY GERD 03/27/23 [History Last Taken 11/10/23] nitrofurantoin monohydrate/macrocrystals 100 mg capsule (Macrobid) 100 mg PO Q12H 5 days #10 caps 11/13/23 [Rx Last Taken Unknown] Allergy/AdvReac Type Severity Reaction Status Date / Time clindamycin Allergy Severe unsure of Verified 02/14/24 17:00 reaction pravastatin Allergy Severe Chest Verified 02/14/24 17:00 tightness procaine [From Novocain] Allergy Severe NEEDS Verified 02/14/24 17:00 FOLLOW-UP sulfamethoxazole Allergy Severe Shortness Verified 02/14/24 17:00 [From Bactrim] of breath trimethoprim [From Bactrim] Allergy Severe Shortness Verified 02/14/24 17:00 of breath levofloxacin [From Levaquin] Allergy UNSURE OF Verified 02/14/24 17:00 REACTION Kjsookr-BTB-HsT Reductase Allergy Anaphylaxis Verified 02/14/24 17:00 Inhibitor methylprednisolone AdvReac Severe Pain in Verified 02/14/24 17:00 joints Family History Father , 32 yrs old CAD (coronary artery disease) History of coronary artery bypass surgery Mother Cancer Lung CA, Hx tobacco use. Surgical History History of arteriovenostomy for renal dialysis (~09/2021) History of cardiac catheterization (~01/08/18) History of cardiac catheterization History of cholecystectomy History of excision of mass History of hysterectomy History of loop recorder history of radium implant Hx of cystoscopy S/P arteriovenous (AV) fistula creation Social History household members: spouse and children number of children: 6 current occupational status: retired history of recent travel: No Smoking Status: Former smoker second hand exposure: No alcohol intake: never substance use type: does not use what type of physical activity do you participate in: walking saurabh/judaism: Non-Jain/Independent seatbelt use: always do you feel safe at home: Yes additional social history: - Fernando PALOMO ROS ED Constitutional Constitutional ED: Reports chills and fever(s); Denies sweats or weight loss Eyes Eyes: Denies blurry vision, change in vision or diplopia ENT ENT ED: Denies ear pain, rhinorrhea or sore throat Cardiovascular Cardiovascular: Denies chest pain, palpitations or racing heartbeat Respiratory/Chest Respiratory/Chest: Denies cough, dyspnea or dyspnea on exertion Gastrointestinal Gastrointestinal: Reports nausea; Denies abdominal pain, diarrhea or vomiting Genitourinary Genitourinary ED: Reports other Details: Patient does not urinate. She has right and left nephrostomy tubes. Musculoskeletal Musculoskeletal: Denies arthralgias, back pain or myalgias Integumentary Denies rash Neurologic Neurologic: Reports weakness; Denies headache(s) or paresthesias Hematologic/Lymphatic Hematologic/Lymphatic: Reports systems reviewed and no addt'l complaints, except as documented EXAM Physical Exam Const Vital Signs: 02/14/24 17:00 02/14/24 17:44 02/14/24 17:47 Temperature 98.4 F 98.6 F Temperature Source Temporal Oral Pulse Rate 120 H Respiratory Rate 16 Blood Pressure 136/77 H Blood Pressure Mean 96 Pulse Ox 96 Oxygen Delivery Method Room Air Room Air 02/14/24 17:47 02/14/24 18:47 02/14/24 19:00 Temperature 98.6 F 98.6 F 98.6 F Temperature Source Oral Oral Oral Pulse Rate 104 H 115 H 104 H Respiratory Rate 18 22 H 14 Blood Pressure 132/77 H 125/54 H 124/49 H Blood Pressure Mean 95 77 74 Pulse Ox 96 95 96 Oxygen Delivery Method Room Air Room Air Room Air Positive well nourished and well developed General Appearance ED: well developed, NAD and pallor; Negative for cyanotic or diaphoretic HEENT Reports dry mucous membranes HEENT Narrative: Head is atraumatic and normocephalic. Ears normal. Nares patent. Posterior pharynx is normal. Mouth ED: Yes dry mucous membranes Mouth: dry mucous membranes Eyes PERRL and EOMs intact bilaterally General Eye ED: Negative for pale conjunctiva Neck no lymphadenopathy, supple and no JVD Chest Wall inspection of chest normal and palpation of chest normal Resp normal respiratory effort and clear to auscultation bilaterally Cardio regular rate, regular rhythm, S1 normal heart sound, S2 normal heart sound and no murmurs GI normal to inspection, nondistended, normoactive bowel sounds, non-tender, non- distended and no masses; Negative for hepatosplenomegaly Palpation: soft Narrative: Nephrostomy tubes noted. Extremity normal to inspection General Extremety ED: Negative for edema General Extremity: Negative for edema Neuro oriented x3 and CN's II-XII intact bilaterally Sensorium / Orientation: alert Psych mental status grossly normal Skin no rashes or lesions noted and no wounds General Skin Exam: pallor; Negative for jaundice MDM MDM MDM Narrative Medical decision making narrative: Concern patient may have sepsis due to recent nephrostomy tube placement. With patient complained of chills and fever sepsis order set was entered. Urinalysis and urine cultures from the right nephrostomy tube was obtained/ordered. The nurse was informed that urine is needed from both the right and left nephrostomy tube. Based on her allergies and concern that this is urologic in origin antibiotics were ordered per the sepsis treatment order set. She received 2 g of cefepime. Since she has no abnormal auscultatory findings of her lungs and no respiratory symptoms chest x-ray was not obtained. History & Record Review Additional record(s) reviewed:: Prior inpatient record (Multiple admissions for urosepsis and kidney disease in 2022.), Prior ED visit and Prior labs Lab Data Attestation: I reviewed the patient's lab results. Lab results narrative: White count is elevated 16.6 thousand. H&H is unremarkable. There is no shift. Comprehensive metabolic panel is remarkable for BUN/creatinine of 21 and 1.75 which is patient's baseline. Lactate is normal. Transaminases low. Labs: Laboratory Results - last 24 hr 02/14/24 02/14/2424 17:39 18:22 18:22 WBC 16.6 H RBC 4.31 Hgb 13.9 Hct 41.8 MCV 97.0 MCH 32.3 H MCHC 33.3 RDW Std Deviation 46.9 H RDW Coeff of [place] 13.2 Plt Count 376 MPV 10.5 Immature Gran % (Auto) 0.400 Neut % (Auto) 61.4 Lymph % (Auto) 30.3 [place] % (Auto) 6.2 Eos % (Auto) 1.3 Baso % (Auto) 0.4 Absolute Neuts (auto) 10.2 H Absolute Lymphs (auto) 5.01 H Nucleated RBC % 0 Differential Comment SEE COMMENT Atypical Lymphocytes 1+ Platelet Estimate ADEQUATE RBC Morphology N CHROM Anisocytosis RARE Macrocytosis RARE Ovalocytes RARE PT 13.4 INR 1.0 APTT 29.4 Sodium 138 Potassium 3.6 Chloride 106 Carbon Dioxide 25.0 Anion Gap 7 BUN 21 H Creatinine 1.75 H Estim Creat Clear Calc 29.74 Est GFR (MDRD) Af Amer 37 L Est GFR (MDRD) Non-Af 30 L BUN/Creatinine Ratio 12.0 Glucose 112 H Lactic Acid 1.0 Calcium 8.4 L Total Bilirubin 0.60 AST 12 L ALT 11 L Alkaline Phosphatase 104 Total Protein 8.0 Albumin 2.9 L Globulin 5.1 H Albumin/Globulin Ratio 0.6 L Urine Color Yellow Yellow Urine Clarity Cloudy Urine pH Ur Specific [place] Urine Protein Urine Glucose (UA) Urine Ketones Urine Occult Blood Urine Nitrite Urine Bilirubin Urine Urobilinogen Ur Leukocyte Esterase Urine RBC Urine WBC Ur Squamous Epith Cells Ur Transition Epith Cell Ur Renal Epithelial Cell Urine Bacteria Urine Mucus 02/14/24 02/14/24 02/14/24 18:22 18:22 18:22 WBC RBC Hgb Hct MCV MCH MCHC RDW Std Deviation RDW Coeff of [place] Plt Count MPV Immature Gran % (Auto) Neut % (Auto) Lymph % (Auto) [place] % (Auto) Eos % (Auto) Baso % (Auto) Absolute Neuts (auto) Absolute Lymphs (auto) Nucleated RBC % Differential Comment Atypical Lymphocytes Platelet Estimate RBC Morphology Anisocytosis Macrocytosis Ovalocytes PT INR APTT Sodium Potassium Chloride Carbon Dioxide Anion Gap BUN Creatinine Estim Creat Clear Calc Est GFR (MDRD) Af Amer Est GFR (MDRD) Non-Af BUN/Creatinine Ratio Glucose Lactic Acid Calcium Total Bilirubin AST ALT Alkaline Phosphatase Total Protein Albumin Globulin Albumin/Globulin Ratio Urine Color Urine Clarity Cloudy Urine pH 6.5 7.0 Ur Specific [place] 1.010 1.005 Urine Protein 100 H Urine Glucose (UA) Urine Ketones Urine Occult Blood Urine Nitrite Urine Bilirubin Urine Urobilinogen Ur Leukocyte Esterase Urine RBC Urine WBC Ur Squamous Epith Cells Ur Transition Epith Cell Ur Renal Epithelial Cell Urine Bacteria Urine Mucus 02/14/24 02/14/24 02/14/24 18:22 18:22 18:22 WBC RBC Hgb Hct MCV MCH MCHC RDW Std Deviation RDW Coeff of [place] Plt Count MPV Immature Gran % (Auto) Neut % (Auto) Lymph % (Auto) [place] % (Auto) Eos % (Auto) Baso % (Auto) Absolute Neuts (auto) Absolute Lymphs (auto) Nucleated RBC % Differential Comment Atypical Lymphocytes Platelet Estimate RBC Morphology Anisocytosis Macrocytosis Ovalocytes PT INR APTT Sodium Potassium Chloride Carbon Dioxide Anion Gap BUN Creatinine Estim Creat Clear Calc Est GFR (MDRD) Af Amer Est GFR (MDRD) Non-Af BUN/Creatinine Ratio Glucose Lactic Acid Calcium Total Bilirubin AST ALT Alkaline Phosphatase Total Protein Albumin Globulin Albumin/Globulin Ratio Urine Color Urine Clarity Urine pH Ur Specific [place] Urine Protein 30 H Urine Glucose (UA) Normal Normal Urine Ketones Negative Negative Urine Occult Blood 250 H Urine Nitrite Urine Bilirubin Urine Urobilinogen Ur Leukocyte Esterase Urine RBC Urine WBC Ur Squamous Epith Cells Ur Transition Epith Cell Ur Renal Epithelial Cell Urine Bacteria Urine Mucus 02/14/24 02/14/24 02/14/24 18:22 18:22 18:22 WBC RBC Hgb Hct MCV MCH MCHC RDW Std Deviation RDW Coeff of [place] Plt Count MPV Immature Gran % (Auto) Neut % (Auto) Lymph % (Auto) [place] % (Auto) Eos % (Auto) Baso % (Auto) Absolute Neuts (auto) Absolute Lymphs (auto) Nucleated RBC % Differential Comment Atypical Lymphocytes Platelet Estimate RBC Morphology Anisocytosis Macrocytosis Ovalocytes PT INR APTT Sodium Potassium Chloride Carbon Dioxide Anion Gap BUN Creatinine Estim Creat Clear Calc Est GFR (MDRD) Af Amer Est GFR (MDRD) Non-Af BUN/Creatinine Ratio Glucose Lactic Acid Calcium Total Bilirubin AST ALT Alkaline Phosphatase Total Protein Albumin Globulin Albumin/Globulin Ratio Urine Color Urine Clarity Urine pH Ur Specific [place] Urine Protein Urine Glucose (UA) Urine Ketones Urine Occult Blood 150 H Urine Nitrite Negative Negative Urine Bilirubin Negative Negative Urine Urobilinogen Normal Ur Leukocyte Esterase Urine RBC Urine WBC Ur Squamous Epith Cells Ur Transition Epith Cell Ur Renal Epithelial Cell Urine Bacteria Urine Mucus 02/14/24 02/14/24 02/14/24 18:22 18:22 18:22 WBC RBC Hgb Hct MCV MCH MCHC RDW Std Deviation RDW Coeff of [place] Plt Count MPV Immature Gran % (Auto) Neut % (Auto) Lymph % (Auto) [place] % (Auto) Eos % (Auto) Baso % (Auto) Absolute Neuts (auto) Absolute Lymphs (auto) Nucleated RBC % Differential Comment Atypical Lymphocytes Platelet Estimate RBC Morphology Anisocytosis Macrocytosis Ovalocytes PT INR APTT Sodium Potassium Chloride Carbon Dioxide Anion Gap BUN Creatinine Estim Creat Clear Calc Est GFR (MDRD) Af Amer Est GFR (MDRD) Non-Af BUN/Creatinine Ratio Glucose Lactic Acid Calcium Total Bilirubin AST ALT Alkaline Phosphatase Total Protein Albumin Globulin Albumin/Globulin Ratio Urine Color Urine Clarity Urine pH Ur Specific [place] Urine Protein Urine Glucose (UA) Urine Ketones Urine Occult Blood Urine Nitrite Urine Bilirubin Urine Urobilinogen Normal Ur Leukocyte Esterase 500 H 500 H Urine RBC 10-25 SEEN 5-10 SEEN Urine WBC >100 SEEN Ur Squamous Epith Cells Ur Transition Epith Cell Ur Renal Epithelial Cell Urine Bacteria Urine Mucus 02/14/24 02/14/24 02/14/24 18:22 18:22 18:22 WBC RBC Hgb Hct MCV MCH MCHC RDW Std Deviation RDW Coeff of [place] Plt Count MPV Immature Gran % (Auto) Neut % (Auto) Lymph % (Auto) [place] % (Auto) Eos % (Auto) Baso % (Auto) Absolute Neuts (auto) Absolute Lymphs (auto) Nucleated RBC % Differential Comment Atypical Lymphocytes Platelet Estimate RBC Morphology Anisocytosis Macrocytosis Ovalocytes PT INR APTT Sodium Potassium Chloride Carbon Dioxide Anion Gap BUN Creatinine Estim Creat Clear Calc Est GFR (MDRD) Af Amer Est GFR (MDRD) Non-Af BUN/Creatinine Ratio Glucose Lactic Acid Calcium Total Bilirubin AST ALT Alkaline Phosphatase Total Protein Albumin Globulin Albumin/Globulin Ratio Urine Color Urine Clarity Urine pH Ur Specific [place] Urine Protein Urine Glucose (UA) Urine Ketones Urine Occult Blood Urine Nitrite Urine Bilirubin Urine Urobilinogen Ur Leukocyte Esterase Urine RBC Urine WBC >100 SEEN Ur Squamous Epith Cells 0 SEEN 0-5 SEEN Ur Transition Epith Cell 0-5 SEEN 0-5 SEEN Ur Renal Epithelial Cell 0-5 SEEN Urine Bacteria Urine Mucus 02/14/24 02/14/24 02/14/24 18:22 18:22 18:22 WBC RBC Hgb Hct MCV MCH MCHC RDW Std Deviation RDW Coeff of [place] Plt Count MPV Immature Gran % (Auto) Neut % (Auto) Lymph % (Auto) [place] % (Auto) Eos % (Auto) Baso % (Auto) Absolute Neuts (auto) Absolute Lymphs (auto) Nucleated RBC % Differential Comment Atypical Lymphocytes Platelet Estimate RBC Morphology Anisocytosis Macrocytosis Ovalocytes PT INR APTT Sodium Potassium Chloride Carbon Dioxide Anion Gap BUN Creatinine Estim Creat Clear Calc Est GFR (MDRD) Af Amer Est GFR (MDRD) Non-Af BUN/Creatinine Ratio Glucose Lactic Acid Calcium Total Bilirubin AST ALT Alkaline Phosphatase Total Protein Albumin Globulin Albumin/Globulin Ratio Urine Color Urine Clarity Urine pH Ur Specific [place] Urine Protein Urine Glucose (UA) Urine Ketones Urine Occult Blood Urine Nitrite Urine Bilirubin Urine Urobilinogen Ur Leukocyte Esterase Urine RBC Urine WBC Ur Squamous Epith Cells Ur Transition Epith Cell Ur Renal Epithelial Cell 0-5 SEEN Urine Bacteria RARE RARE Urine Mucus 0 SEEN 0 SEEN Urinalysis reveals pyuria right and left nephrostomy tube. There is bacteria noted on 1 side. In light of elevated temperature, white count will contact hospitalist for admission. Rhythm Strip Rhythm Strip: Sinus Tach Rate: 110 Ectopy: None EKG Initial EKG: Attestation: I personally reviewed and interpreted this EKG as follows: Interpretation: Sinus Tachycardia (Rate is 108. The EKG is normal other than sinus tach. AR interval is 148 ms. QS duration 86 ms. QT duration 3 and 36 ms. [place] is normal.) Treatment and Re-Evaluation :: Patient was informed of her laboratory results. Patient prefers to be admitted to [facility]. Discharge Plan Triage Chief Complaint: Complaint ED Provider: Altaf Villa Dx/Rx/DC Orders Clinical Impression: Complicated urinary tract infection, Bilateral hydronephrosis, Chronic renal failure, stage 4 (severe), Essential hypertension, Hyperlipidemia, Leukocytosis, Sinus tachycardia Prescriptions: No Action albuterol sulfate [Ventolin HFA] 90 mcg/actuation HFA aerosol inhaler 2 puff INHALATION Q6H PRN (Reason: Sob &/Or Wheezing) pantoprazole 40 mg tablet,delayed release (DR/EC) 40 mg PO DAILY Hold Instructions: Order Completed potassium chloride 20 MEQ tablet,ER particles/crystals 20 meq PO DAILY ipratropium bromide 42 mcg (0.06 %) spray,non-aerosol 2 spray INTRANASAL DAILY nitrofurantoin monohyd/m-cryst [Macrobid] 100 mg capsule 100 mg PO Q12H 5 Days Qty: 10 0RF Rx Instructions: must administer with a meal/food amlodipine 2.5 mg tablet 2.5 mg PO DAILY Qty: 90 3RF Primary Care Provider: Gerardo García Chi Referrals: Gerardo García Chi, MD [Primary Care Provider] - Disposition Disposition: Acute Care Hospital [facility]
[2024-02-14 18:05] LABS: Absolute Lymphocyte Count 5.01 X10^3/uL (0.83-4.51); Absolute Neutrophil Count 10.2 X10^3/uL (2.0-7.7); Basophil# 0.06 X10^3/uL; Basophil% 0.4 % (0-1); Eosinophil# 0.21 X10^3/uL; Eosinophils% 1.3 % (0-5); Hematocrit 41.8 % (37-47); Hemoglobin 13.9 g/dL (12.0-15.0); Lymphocyte # 5.01 X10^3/ul (0.83-4.51); Lymphocyte % 30.3 % (19-41); Mean Corp Hgb Conc 33.3 g/dL (32-36); Mean Corpuscular Hgb 32.3 pg (27.0-32.0); Mean Platelet Vol. 10.5 fl (6.2-12.0); Monocyte# 1.02 X10^3/uL; Monocyte% 6.2 % (0-10); NRBC Flagged by Analyzer 0 % (0-5); Neutrophil # 10.19 X10^3/uL (2.7-7.7); Neutrophil % 61.4 % (47-70); POSITIVE DIFFERENTIAL YES; Platelet Count 376 K/mm3 (150-450); RBC Distribution Width CV 13.2 % (11.6-14.6); RBC Distribution Width SD 46.9 fl (35.1-43.9); Red Blood Count 4.31 M/mm3 (4.2-5.4); White Blood Count 16.6 K/mm3 (4.4-11.0)
[2024-02-14 18:07] LABS: ALB/GLOB Ratio 0.6 RATIO (0.9-2.4); AST(SGOT) 12 U/L (15-37); Alanine Aminotransfer ALT/SGPT 11 U/L (13-56); Albumin, Serum 2.9 g/dL (3.2-5.0); Alkaline Phosphatase 104 U/L (45-117); Anion Gap 7 (5-15); BUN 21 mg/dL (7-18); Calcium,Total 8.4 mg/dL (8.5-10.1); Chloride 106 mmol/L (98-107); Creatinine, Serum 1.75 mg/dL (0.55-1.02); EST Glomerular Filtration Rate 30 mL/min (>60); Est Glom Filt Rate - Afr Amer 37 mL/min (>60); Estimated Creatinine Clearance 29.74 ml/min; Globulin 5.1 g/dL (2.2-4.2); Glucose 112 mg/dL (74-106); Potassium 3.6 mmol/L (3.5-5.1); Sodium Level 138 mmol/L (136-145)
[2024-02-14 18:09] LABS: Partial Thromboplast Time 29.4 Seconds (24.1-36.2); Prothrombin Time (Protime)PT. 13.4 SECONDS (11.7-14.9)
[2024-02-14 18:13] LABS: Differential Indicated SCAN CRITERIA MET
[2024-02-14] MEDS: 0.9% Normal Saline (1000mL) 1,000 ML 250 ML IV (18:33)
[2024-02-14] MEDS: Cefepime HCl 2 GM in 0.9% Normal Saline (100mL MB+) 100 ML IV (18:33)
[2024-02-14 18:36] LABS: Mucous, Urine 0 SEEN /hpf (<or=2+); Squamous Epithelial Cells - UA 0 SEEN /hpf (5-10)
[2024-02-14 18:39] LABS: Atypical Lymphocyte 1+ %; Platelet Estimate ADEQUATE (ADEQ)
[2024-02-14 18:40] LABS: Anisocytosis RARE; Macrocytosis RARE; Ovalocyte RARE; Red Cell Morphology N CHROM NORMAL (NORM C&C)
[2024-02-14 18:43] LABS: Mucous, Urine 0 SEEN /hpf (<or=2+)
[2024-02-14 18:45] LABS: Color, Urine Yellow (Yellow); Glucose, Dipstick Normal (Normal); Ketone-Dipstick Negative (Negative); Leukocyte Esterase-Dipstick 500 /ul (Negative); Nitrite-Dipstick Negative (Negative); Occult Blood-Urine 150 /ul (Negative); Occult Blood-Urine 250 /ul (Negative); Protein-Dipstick 100 mg/dl (Negative); Protein-Dipstick 30 mg/dl (Negative); Specific Gravity, Urine 1.005 (1.002-1.030); Urine Bilirubin Dipstick Negative (Negative); Urine Clarity Cloudy (Clear); Urine Urobilinogen Normal (Normal); Urine pH 6.5 (5.0 - 8.0)
[2024-02-14 18:51] LABS: White Blood Cells >100 SEEN /hpf (0-5)
[2024-02-14 18:52] LABS: Renal Epithelial Cells 0-5 SEEN /hpf (0-5); Squamous Epithelial Cells - UA 0-5 SEEN /hpf (5-10); Transitional Epithelial - Ur 0-5 SEEN /hpf (0-5)
[2024-02-14 18:53] LABS: Bacteria RARE /hpf (None Seen); Red Blood Cells-Urine 5-10 SEEN /hpf (0-5)
[2024-02-14 18:54] LABS: Red Blood Cells-Urine 10-25 SEEN /hpf (0-5); Transitional Epithelial - Ur 0-5 SEEN /hpf (0-5); White Blood Cells >100 SEEN /hpf (0-5)
[2024-02-14 18:55] LABS: Bacteria RARE /hpf (None Seen); Renal Epithelial Cells 0-5 SEEN /hpf (0-5)
--- NOTE | 2024-02-14 19:15 | PCM.HP.STD ---
[facility] - General General Date of Admission: 02/14/24 Date of Service: 02/14/24 Chief Complaint: Fever, shaking chills and dysuria. [facility] Narrative TODD DELONG, is a 73 F with a past medical history of essential hypertension, hyperlipidemia; with history of anaphylaxis to statins, hypothyroidism, chronic kidney disease stage IIIb-IV; with history of atriovenostomy for renal dialysis in September 2021, history of multidrug-resistant UTI with Pseudomonas requiring treatment with Merrem, history of bilateral hydronephrosis, history of MRSA, history of listed antibiotic allergies to clindamycin, TMP-SMX and Levaquin, history of tobacco abuse, history of COVID-pneumonia (2018), history of mild intermittent asthma, history of cervical cancer, history of atrophic vaginitis, history of admission here from August 02, 2023 to August 07, 2023 for UTI secondary to multidrug-resistant Pseudomonas complicated by hydronephrosis with ureteral stents placed by urology which required PICC line placement for IV antibiotics who presents to [facility] complaining of fever, shaking chills and dysuria. Ms. Delong reports her symptoms began approximately 1 week prior to admission after her right ureteral stents were changed 1 week ago with a right nephrostomy tube having inadvertently been dislodged with it replaced by interventional radiology at [facility]. Apparently she was noted to have signs of right pyelonephritis and was given a single dose of IV antibiotics prior to being discharged. She then noticed the gradual onset of fever up to 100.1 ?F with shaking chills and significant nausea that were similar to her previous bouts of UTI with sepsis. She denies associated headache, abdominal pain, vomiting or diarrhea and she does not urinate. In the ER she was noted to have cloudy grossly infected urine flowing from her right nephrostomy tube consistent with right pyelonephritis/complicated urinary tract infection with leukocytosis of 16.6 present on admission and fever (but with a normal lactate, nontoxic appearance and rapid improvement after initial round of therapy which is doubtful for sepsis) in the setting of known CKD; stage IV and she was then admitted to the general medical floor for ongoing care for stay that is expected to be greater than 48 hours. [facility] Medical History Acute diarrhea LULY (acute kidney injury) Asthma Dunbar's palsy Bilateral hydronephrosis Bladder disease Blood disorder Bruising Cancer Cardiology follow-up encounter Cervical cancer Chronic kidney disease Chronic renal failure, stage 4 (severe) Dialysis patient Easy bruising Essential hypertension Former smoker Gout High anion gap metabolic acidosis History of biliary stent insertion History of cervical cancer History of Clostridium difficile infection History of COVID-19 History of irregular heartbeat History of renal disease Hx of cataract Hx of echocardiogram Hx of vertigo Hyperlipidemia Hypertension Hypokalemia Hyponatremia Kidney disease Leg cramps Leukocytosis Lymphocytosis Mild intermittent asthma MRSA infection Near syncope Problem with dialysis access Status post placement of implantable loop recorder (~03/29/20) Thyroid disease Urinary incontinence UTI (urinary tract infection) Wears dentures Home Medications albuterol sulfate 90 mcg/actuation aerosol inhaler (Ventolin HFA) 2 puff inhalation Q6H PRN Sob &/Or Wheezing 07/25/18 [History Last Taken 11/10/23] potassium chloride 20 mEq tablet,extended release(part/cryst) 20 meq PO DAILY supplement 09/01/20 [History Last Taken 02/14/24 10:00] amlodipine 2.5 mg tablet 2.5 mg PO DAILY BP #90 tabs 08/12/21 [Rx Last Taken 02/14/24 10:00] ipratropium bromide 42 mcg (0.06 %) nasal spray 2 spray intranasal DAILY allergie 11/23/21 [History Last Taken 02/14/24 10:00] pantoprazole 40 mg tablet,delayed release 40 mg PO DAILY GERD 03/27/23 [History Last Taken 02/14/24 10:00] cephalexin 500 mg capsule 500 mg PO TID infection 02/14/24 [History Last Taken 02/14/24 10:00] levothyroxine 25 mcg tablet 25 mcg PO DAILY thyroid 02/14/24 [History Last Taken 02/14/24 07:00] Allergy/AdvReac Type Severity Reaction Status Date / Time clindamycin Allergy Severe unsure of Verified 02/14/24 17:00 reaction pravastatin Allergy Severe Chest Verified 02/14/24 17:00 tightness procaine [From Novocain] Allergy Severe NEEDS Verified 02/14/24 17:00 FOLLOW-UP sulfamethoxazole Allergy Severe Shortness Verified 02/14/24 17:00 [From Bactrim] of breath trimethoprim [From Bactrim] Allergy Severe Shortness Verified 02/14/24 17:00 of breath levofloxacin [From Levaquin] Allergy UNSURE OF Verified 02/14/24 17:00 REACTION [id number] Reductase Allergy Anaphylaxis Verified 02/14/24 17:00 Inhibitor methylprednisolone AdvReac Severe Pain in Verified 02/14/24 17:00 joints Family History Father , 32 yrs old CAD (coronary artery disease) History of coronary artery bypass surgery Mother Cancer Lung CA, Hx tobacco use. Surgical History History of arteriovenostomy for renal dialysis (~09/2021) History of cardiac catheterization (~01/08/18) History of cardiac catheterization History of cholecystectomy History of excision of mass History of hysterectomy History of loop recorder history of radium implant Hx of cystoscopy S/P arteriovenous (AV) fistula creation Social History household members: spouse and children number of children: 6 current occupational status: retired history of recent travel: No Smoking Status: Former smoker second hand exposure: No alcohol intake: never substance use type: does not use what type of physical activity do you participate in: walking saurabh/mu-ism: Non-Worship/Independent seatbelt use: always do you feel safe at home: Yes additional social history: - Fernando PALOMO Narrative Review of systems: General: Patient admits to fever and shaking chills with documented fever of 100.1 ?F as per HPI. HENT: Denies headache, denies stuffy nose, denies sore throat EYES: Denies changes in vision or discharge from eyes. Resp: Denies cough, denies shortness of breath Cardiac: Denies chest pain or palpitations GI: Denies abdominal pain, denies changes in bowel, had some nausea but denies vomiting. : Patient does not urinate but was noted to have grossly infected urine coming from her right nephrostomy tube. Clear urine was noted from her left nephrostomy tube Extremity: Denies swelling Musculoskeletal: Feels somewhat generally weak and unwell but she denies arthralgias or myalgias. Neuro: Patient denies headache, paresthesias or focal neurologic deficits. Heme: Denies any bleeding or bruising Skin: Denies rashes Psychiatric: No complaints voiced related to uncontrolled depression or anxiety. Endocrine: No polyuria, polydipsia or polyphagia. The rest of the 14 point ROS was negative except for positives in HPI. Vital Signs Vital Signs Vital Signs: 02/14/24 17:00 02/14/24 17:44 02/14/24 17:47 Temperature 98.4 F 98.6 F Temperature Source Temporal Oral Pulse Rate 120 H Respiratory Rate 16 Blood Pressure 136/77 H Blood Pressure Mean 96 Pulse Ox 96 Oxygen Delivery Method Room Air Room Air 02/14/24 17:47 02/14/24 18:47 02/14/24 19:00 Temperature 98.6 F 98.6 F 98.6 F Temperature Source Oral Oral Oral Pulse Rate 104 H 115 H 104 H Respiratory Rate 18 22 H 14 Blood Pressure 132/77 H 125/54 H 124/49 H Blood Pressure Mean 95 77 74 Pulse Ox 96 95 96 Oxygen Delivery Method Room Air Room Air Room Air Weight Weight: 155 lb Body Mass Index (BMI) 23.6 Physical Exam Const alert, oriented x3, no apparent distress, average body habitus and healthy appearing General Appearance: cooperative HEENT normocephalic, head/scalp atraumatic and hearing grossly normal bilaterally HEENT Narrative: Mucous membranes dry. Eyes PERRL and EOMs intact bilaterally Neck no lymphadenopathy and supple Resp normal respiratory effort, no retractions, no use of accessory muscles and clear to auscultation bilaterally Cardio regular rate and regular rhythm Cardio Narrative: Tachycardia slightly over 100 bpm noted. GI normal to inspection, nondistended, normoactive bowel sounds, soft to palpation, non-tender and non-distended GI Narrative: Patient has bilateral nephrostomy tubes present. Extremity normal to inspection, full ROM and no clubbing, cyanosis or edema Skin Skin Narrative: Patient has no evidence of abscess or rash. Neuro oriented x3, CN's II-XII intact bilaterally, moves all extremities and no focal motor deficits Sensorium / Orientation: awake, alert, oriented to person, oriented to place and oriented to time Speech: speech normal Motor Exam: strength 5/5 throughout Psych affect normal Results Medical Records Data Attestation: I reviewed the patient's medical records Lab / Micro Data Attestation: I reviewed the patient's lab results. 02/14/24 17:39 02/14/24 17:39 Labs: Laboratory Results - last 24 hr 02/14/24 17:39: WBC 16.6 H, RBC 4.31, Hgb 13.9, Hct 41.8, MCV 97.0, MCH 32.3 H, MCHC 33.3, RDW Std Deviation 46.9 H, RDW Coeff of Dewey 13.2, Plt Count 376, MPV 10.5, Immature Gran % (Auto) 0.400, Neut % (Auto) 61.4, Lymph % (Auto) 30.3, Early % (Auto) 6.2, Eos % (Auto) 1.3, Baso % (Auto) 0.4, Absolute Neuts (auto) 10.2 H, Absolute Lymphs (auto) 5.01 H, Nucleated RBC % 0, Differential Comment SEE COMMENT, Atypical Lymphocytes 1+, Platelet Estimate ADEQUATE, RBC Morphology N CHROM, Anisocytosis RARE, Macrocytosis RARE, Ovalocytes RARE, PT 13.4, INR 1.0, APTT 29.4, Sodium 138, Potassium 3.6, Chloride 106, Carbon Dioxide 25.0, Anion Gap 7, BUN 21 H, Creatinine 1.75 H, Estim Creat Clear Calc 29.74, Est GFR (MDRD) Af Amer 37 L, Est GFR (MDRD) Non-Af 30 L, BUN/Creatinine Ratio 12.0, Glucose 112 H, Lactic Acid 1.0, Calcium 8.4 L, Total Bilirubin 0.60, AST 12 L, ALT 11 L, Alkaline Phosphatase 104, Total Protein 8.0, Albumin 2.9 L, Globulin 5.1 H, Albumin/Globulin Ratio 0.6 L 02/14/24 18:22: Urine Color Yellow 02/14/24 18:22: Urine Color Yellow, Urine Clarity Cloudy 02/14/24 18:22: Urine Clarity Cloudy, Urine pH 6.5 02/14/24 18:22: Urine pH 7.0, Ur Specific [place] 1.010 02/14/24 18:22: Ur Specific [place] 1.005, Urine Protein 100 H 02/14/24 18:22: Urine Protein 30 H, Urine Glucose (UA) Normal 02/14/24 18:22: Urine Glucose (UA) Normal, Urine Ketones Negative 02/14/24 18:22: Urine Ketones Negative, Urine Occult Blood 250 H 02/14/24 18:22: Urine Occult Blood 150 H, Urine Nitrite Negative 02/14/24 18:22: Urine Nitrite Negative, Urine Bilirubin Negative 02/14/24 18:22: Urine Bilirubin Negative, Urine Urobilinogen Normal 02/14/24 18:22: Urine Urobilinogen Normal, Ur Leukocyte Esterase 500 H 02/14/24 18:22: Ur Leukocyte Esterase 500 H, Urine RBC 10-25 SEEN 02/14/24 18:22: Urine RBC 5-10 SEEN, Urine WBC >100 SEEN 02/14/24 18:22: Urine WBC >100 SEEN, Ur Squamous Epith Cells 0 SEEN 02/14/24 18:22: Ur Squamous Epith Cells 0-5 SEEN, Ur Transition Epith Cell 0-5 SEEN 02/14/24 18:22: Ur Transition Epith Cell 0-5 SEEN, Ur Renal Epithelial Cell 0-5 SEEN 02/14/24 18:22: Ur Renal Epithelial Cell 0-5 SEEN, Urine Bacteria RARE 02/14/24 18:22: Urine Bacteria RARE, Urine Mucus 0 SEEN 02/14/24 18:22: Urine Mucus 0 SEEN Rhythm Strip Rhythm Strip: Sinus Tach Rate: 110 Ectopy: None Assessment & Plan Assessment/Plan (1) Pyelonephritis of right kidney: (2) Complicated urinary tract infection: (3) Leukocytosis: QUALIFIERS: Leukocytosis type: unspecified Qualified Code(s): D72.829 - Elevated white blood cell count, unspecified PLAN: Plan 1. Right pyelonephritis/complicated urinary tract infection with leukocytosis of 16.6 present on admission in the setting of known previous bilateral hydronephrosis status post bilateral nephrostomy tube placement with recent inadvertent removal of the right nephrostomy tube replaced yesterday by IR physician at [facility] with a known history of listed antibiotic allergies to clindamycin, TMP-SMX and Levaquin - Admit to general medical floor. Continue IV cefepime begun in the ER and await culture and sensitivity data. Give Tylenol as needed pain or fever. Patient understands she is likely to grow another multidrug-resistant organism that may require PICC line placement to complete her course of antibiotics. Patient was not suspected to have sepsis at time of admission - likely due to her recent outpatient IV antibiotic treatment at [place]. 2. Chronic kidney disease stage IIIb-IV; with history of atriovenostomy for renal dialysis in September 2021 complicated by frequent multidrug-resistant UTIs including Pseudomonas and MRSA complicating #1 - Noted. Volume resuscitate and follow strict I's and O's. Check BMP daily to ensure continued stability with above treatment. 3. History of admission here from August 02, 2023 to August 07, 2023 and from November 10, 2023 to November 13, 2023 for UTI secondary to multidrug-resistant Pseudomonas complicated by hydronephrosis with ureteral stents placed by urology which required PICC line placement for IV antibiotics - Noted. 4. Essential hypertension - Hold scheduled antihypertensives until infection noted above is neutralized. Give IV hydralazine as needed for systolic blood pressure greater than 160 mmHg. 5. Hyperlipidemia; with history of anaphylaxis to statins - Noted. We will continue to avoid statin agents. 6. Hypothyroidism - Continue Synthroid as previous. 7. History of tobacco abuse - Noted. 8. History of COVID-pneumonia (2019) - Noted. 9. History of mild intermittent asthma - Stable at this time with no evidence of flare. Continue as needed nebulizers. 10. History of cervical cancer - Noted. 11. History of atrophic vaginitis - Noted. 12. Chronic Gout - Stable with no evidence of acute flare. 13. DVT prophylaxis - Give renally dosed Lovenox 30 mg subcu daily. Total time: Approximately 55 minutes. Charges/Coding Visit Charges Inpatient E&M: 02214 Init Hosp L2
[2024-02-14] MEDS: 0.9% Normal Saline (1000mL) 1,000 ML 125 ML IV (22:35)
[2024-02-15 02:45] VITALS: BP 138/72; PULSE 69; RESP 16; TEMP 37.1; O2SAT 95
[2024-02-15 05:13] VITALS: BMI 24.5
[2024-02-15] MEDS: 0.9% Normal Saline (1000mL) 1,000 ML 125 ML IV ×3 (05:42→22:02)
[2024-02-15 07:20] LABS: Absolute Lymphocyte Count 6.04 X10^3/uL (0.83-4.51); Absolute Neutrophil Count 6.3 X10^3/uL (2.0-7.7); Basophil# 0.07 X10^3/uL; Basophil% 0.5 % (0-1); Eosinophil# 0.22 X10^3/uL; Eosinophils% 1.6 % (0-5); Hematocrit 35.7 % (37-47); Hemoglobin 11.3 g/dL (12.0-15.0); Lymphocyte # 6.04 X10^3/ul (0.83-4.51); Lymphocyte % 43.8 % (19-41); Mean Corp Hgb Conc 31.7 g/dL (32-36); Mean Corpuscular Hgb 31.4 pg (27.0-32.0); Mean Corpuscular Volume 99.2 fL (81-99); Mean Platelet Vol. 10.6 fl (6.2-12.0); NRBC Flagged by Analyzer 0 % (0-5); Neutrophil # 6.31 X10^3/uL (2.7-7.7); Neutrophil % 45.7 % (47-70); POSITIVE DIFFERENTIAL YES; Platelet Count 292 K/mm3 (150-450); RBC Distribution Width CV 13.2 % (11.6-14.6); RBC Distribution Width SD 48.2 fl (35.1-43.9); White Blood Count 13.8 K/mm3 (4.4-11.0)
[2024-02-15 07:25] VITALS: BP 124/77; PULSE 95; RESP 18; TEMP 36.4; O2SAT 98
[2024-02-15 07:30] LABS: Differential Indicated SCAN CRITERIA MET
[2024-02-15] MEDS: Potassium Chloride Oral Tablet 20 MEQ PO (07:32)
[2024-02-15 07:40] LABS: ALB/GLOB Ratio 0.5 RATIO (0.9-2.4); AST(SGOT) 13 U/L (15-37); Alanine Aminotransfer ALT/SGPT < 6 U/L (13-56); Albumin, Serum 2.3 g/dL (3.2-5.0); Alkaline Phosphatase 83 U/L (45-117); Anion Gap 6 (5-15); BUN 19 mg/dL (7-18); BUN/Creat Ratio 11.7 RATIO (10-20); Calcium,Total 7.9 mg/dL (8.5-10.1); Chloride 113 mmol/L (98-107); Creatinine, Serum 1.62 mg/dL (0.55-1.02); EST Glomerular Filtration Rate 33 mL/min (>60); Est Glom Filt Rate - Afr Amer 40 mL/min (>60); Estimated Creatinine Clearance 32.13 ml/min; Globulin 4.4 g/dL (2.2-4.2); Glucose 85 mg/dL (74-106); Magnesium 1.3 mg/dL (1.6-2.6); Phosphorus 3.5 mg/dL (2.5-4.9); Potassium 3.3 mmol/L (3.5-5.1); Protein, Total 6.7 g/dL (6.4-8.2); Sodium Level 141 mmol/L (136-145)
--- NOTE | 2024-02-15 09:05 | PCM.PN.HOSP ---
Reason for Visit Reason for Visit: Chills/fever Subjective Subjective Mrs. Delong is a 73-year-old white female who presented to the emergency department [facility] on 02/14/2024 with shaking chills and a documented temperature at home at 100.1 and concerns for UTI. The patient reported she has a history of recurrent urinary tract infections and had a right nephrostomy tube reinserted because it fell out. This was performed by [facility]. Her ureteral stents were changed about 1 week ago and she also has a left nephrostomy tube in place. She has had previous multiple admissions for sepsis related to urinary tract infections. She denied any abdominal pain, vomiting or diarrhea but was nauseated. She does not urinate at baseline due to her nephrostomy tube placement. She does have history of multidrug-resistant UTIs previously that have required longer-term IV antibiotics via PICC line. On presentation she had fever shaking chills and dysuria. Her symptoms began about a week before presentation. She was noted to have pyelonephritis on the right side and was given a single dose of IV antibiotics prior to being discharged when her nephrostomy tube was changed at [place]. Vital signs on presentation showed temperature of 98.4, heart rate was 120, blood pressure was 136/77, pulse ox was 96% room air. Her CBC showed a leukocytosis with a white count of 16.6, but was otherwise unremarkable. Coags were normal. Her chemistry panel showed normal electrolytes. She had an elevated BUN at 21 and a serum creatinine of 1.75 which is less than her previous and seems to be close to her baseline. Her liver function was normal. Her UA showed occult blood was negative for nitrites but did have significant leuk esterase, greater than 100 white cells and bacteria was present. She was admitted to the medical floor and placed on cefepime after cultures were obtained. Patient states she is feeling better but not quite back to baseline yet. She is hoping that she can go home on oral antibiotics this time as she has had to have IV antibiotics previously. Objective Data Objective Data Vital Signs: Vital Signs Temp Pulse Resp BP Pulse Ox O2 Del Method 97.6 F L 95 18 124/77 H 98 Room Air 02/15/24 07:25 02/15/24 07:25 02/15/24 07:25 02/15/24 07:25 02/15/24 07:25 02/15/24 07:25 Oxygen Delivery Method Room Air Weight: 73.6 kg Body Mass Index (BMI) 24.5 Intake & Output: Intake and Output for Last 24 Hours 02/13/24 02/14/24 02/15/24 23:59 23:59 23:59 Intake Total 1100 / 1100 889.58 / 889.58 Output Total 550 / 550 Balance 1100 / 800 339.58 / 339.58 Lab / Micro Data 02/15/24 06:49 02/15/24 06:49 Labs: Laboratory Results - last 24 hr 02/14/24 17:39: WBC 16.6 H, RBC 4.31, Hgb 13.9, Hct 41.8, MCV 97.0, MCH 32.3 H, MCHC 33.3, RDW Std Deviation 46.9 H, RDW Coeff of Dewey 13.2, Plt Count 376, MPV 10.5, Immature Gran % (Auto) 0.400, Neut % (Auto) 61.4, Lymph % (Auto) 30.3, [place] % (Auto) 6.2, Eos % (Auto) 1.3, Baso % (Auto) 0.4, Absolute Neuts (auto) 10.2 H, Absolute Lymphs (auto) 5.01 H, Nucleated RBC % 0, Differential Comment SEE COMMENT, Atypical Lymphocytes 1+, Platelet Estimate ADEQUATE, RBC Morphology N CHROM, Anisocytosis RARE, Macrocytosis RARE, Ovalocytes RARE, PT 13.4, INR 1.0, APTT 29.4, Sodium 138, Potassium 3.6, Chloride 106, Carbon Dioxide 25.0, Anion Gap 7, BUN 21 H, Creatinine 1.75 H, Estim Creat Clear Calc 29.74, Est GFR (MDRD) Af Amer 37 L, Est GFR (MDRD) Non-Af 30 L, BUN/Creatinine Ratio 12.0, Glucose 112 H, Lactic Acid 1.0, Calcium 8.4 L, Total Bilirubin 0.60, AST 12 L, ALT 11 L, Alkaline Phosphatase 104, Total Protein 8.0, Albumin 2.9 L, Globulin 5.1 H, Albumin/Globulin Ratio 0.6 L 02/14/24 18:22: Urine Color Yellow 02/14/24 18:22: Urine Color Yellow, Urine Clarity Cloudy 02/14/24 18:22: Urine Clarity Cloudy, Urine pH 6.5 02/14/24 18:22: Urine pH 7.0, Ur Specific [place] 1.010 02/14/24 18:22: Ur Specific [place] 1.005, Urine Protein 100 H 02/14/24 18:22: Urine Protein 30 H, Urine Glucose (UA) Normal 02/14/24 18:22: Urine Glucose (UA) Normal, Urine Ketones Negative 02/14/24 18:22: Urine Ketones Negative, Urine Occult Blood 250 H 02/14/24 18:22: Urine Occult Blood 150 H, Urine Nitrite Negative 02/14/24 18:22: Urine Nitrite Negative, Urine Bilirubin Negative 02/14/24 18:22: Urine Bilirubin Negative, Urine Urobilinogen Normal 02/14/24 18:22: Urine Urobilinogen Normal, Ur Leukocyte Esterase 500 H 02/14/24 18:22: Ur Leukocyte Esterase 500 H, Urine RBC 10-25 SEEN 02/14/24 18:22: Urine RBC 5-10 SEEN, Urine WBC >100 SEEN 02/14/24 18:22: Urine WBC >100 SEEN, Ur Squamous Epith Cells 0 SEEN 02/14/24 18:22: Ur Squamous Epith Cells 0-5 SEEN, Ur Transition Epith Cell 0-5 SEEN 02/14/24 18:22: Ur Transition Epith Cell 0-5 SEEN, Ur Renal Epithelial Cell 0-5 SEEN 02/14/24 18:22: Ur Renal Epithelial Cell 0-5 SEEN, Urine Bacteria RARE 02/14/24 18:22: Urine Bacteria RARE, Urine Mucus 0 SEEN 02/14/24 18:22: Urine Mucus 0 SEEN 02/15/24 06:49: WBC 13.8 H, RBC 3.60 L, Hgb 11.3 L, Hct 35.7 L, MCV 99.2 H, MCH 31.4, MCHC 31.7 L, RDW Std Deviation 48.2 H, RDW Coeff of [place] 13.2, Plt Count 292, MPV 10.6, Immature Gran % (Auto) 0.400, Neut % (Auto) 45.7 L, Lymph % (Auto) 43.8 H, [place] % (Auto) 8.0, Eos % (Auto) 1.6, Baso % (Auto) 0.5, Absolute Neuts (auto) 6.3, Absolute Lymphs (auto) 6.04 H, Nucleated RBC % 0, Sodium 141, Potassium 3.3 L, Chloride 113 H, Carbon Dioxide 22.0, Anion Gap 6, BUN 19 H, Creatinine 1.62 H, Estim Creat Clear Calc 32.13, Est GFR (MDRD) Af Amer 40 L, Est GFR (MDRD) Non-Af 33 L, BUN/Creatinine Ratio 11.7, Glucose 85, Calcium 7.9 L, Phosphorus 3.5, Magnesium 1.3 L, Total Bilirubin 0.90, AST 13 L, ALT < 6 L, Alkaline Phosphatase 83, Total Protein 6.7, Albumin 2.3 L, Globulin 4.4 H, Albumin/Globulin Ratio 0.5 L Rhythm Strip Rhythm Strip: Sinus Tach Rate: 110 Ectopy: None Physical Exam Const alert, oriented x3, no apparent distress, average body habitus and well nourished Constitutional Narrative: Very pleasant, older, white female, sitting up in bed, daughter at bedside, patient appears comfortable and nontoxic at this time HEENT head/scalp atraumatic and moist oral mucous membranes Head and Scalp: normocephalic Resp normal respiratory effort, no retractions, no use of accessory muscles and clear to auscultation bilaterally Auscultation: Negative for rales, rhonchi or wheezes Cardio regular rate, regular rhythm, S1 normal heart sound, S2 normal heart sound, no murmurs, no rub, no gallops and no clicks GI normal to inspection, nondistended, normoactive bowel sounds, soft to palpation and non-tender GI Narrative: Bilateral nephrostomy tubes in place Extremity no clubbing, cyanosis or edema Extremity Narrative: Pedal pulses are 2+, radial pulses are 2+ Neuro oriented x3, moves all extremities and no focal motor deficits Speech: speech normal Psych affect normal Psych Narrative: Very pleasant, interacts appropriately Assessment & Plan Assessment/Plan (1) Pyelonephritis of right kidney: (2) UTI (urinary tract infection): (3) Sinus tachycardia: (4) Leukocytosis: QUALIFIERS: Leukocytosis type: unspecified Qualified Code(s): D72.829 - Elevated white blood cell count, unspecified (5) Hypokalemia: PLAN: Plan Right pyelonephritis that is/she complicated urinary tract infection -Will check renal ultrasound to verify pyelonephritis as this was only reported from out side hospital per patient -Urine culture/blood cultures have been sent -Continue cefepime -Patient does have previous history of multidrug-resistant organisms causing infection so may need infectious disease input depending on organism identification Leukocytosis -Trending down -Secondary to the above -Continue to monitor Sinus tachycardia -Likely related to acute infection -Resolved Hypokalemia -Patient is on chronic potassium supplementation -Will augment with 40 mill equivalents p.o. potassium today next-recheck in a.m. -Check a.m. 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 -History of AV fistula done in 2020 -Not currently on dialysis -Creatinine is stable -Recommend ongoing outpatient follow-up with nephrology History of hypertension -Patient only takes amlodipine 2.5 mg daily -Will restart and monitor blood pressure as she is stable despite infection Hyperlipidemia -Patient has history of anaphylaxis to statin so therefore does not take 1 -Continue outpatient follow-up Hypothyroidism -Continue home levothyroxine GERD -Continue home PPI Seasonal allergies -Continue intranasal ipratropium History of gout -Patient is not on any chronic medications -No signs of acute flare History of tobacco abuse -Remote -Encourage ongoing cessation DVT prophylaxis -Continue Lovenox but increase dose from 30 to 40 mg daily CODE STATUS -full code is verified on admission Charges/Coding Visit Charges Inpatient E&M: 66926 Subs Hosp L2
--- NOTE | 2024-02-15 09:09 | US_ITS ---
STUDY: RENAL ULTRASOUND - COMPLETE REASON FOR EXAM: Female, 73 years old. uti . The patient presently has bilateral nephrostomy tubes and bilateral ureteral stents. TECHNIQUE: Ultrasound evaluation of the kidneys was performed with real-time and static alejo-scale imaging. COMPARISON: Comparison is made with prior study September 19, 2023. FINDINGS: RIGHT KIDNEY: Normal location of the right kidney, which is normal in size. The right kidney measures 9.5 cm x 5 cm x 5.2 cm. There is a normal cortex of the right kidney. The renal cortex measures 1.1 cm. There is a 3.2 cm by 3.7 cm x 2.8 cm cyst in the inferior pole. There are no right renal calculi. There is mild hydronephrosis of the right kidney. DISTAL RIGHT URETER: There is non-visualization of the distal right ureter. There is no demonstrated right ureterovesical junction calculus. There is no demonstrated right ureteral jet. LEFT KIDNEY: Normal location of the left kidney, which is normal in size. The left kidney measures 9.6 cm x 5.1 cm x 5.1 cm. There is a normal cortex of the left kidney. The renal cortex measures 1.1 cm. There is no left renal mass or cyst. There are no left renal calculi. There is mild hydronephrosis of the left kidney. DISTAL LEFT URETER: There is non-visualization of the distal left ureter. There is no demonstrated left ureterovesical junction calculus. There is a visualized left ureteral jet. BLADDER: The distended urinary bladder has a volume of 42 ml. The empty urinary bladder has a volume of ml. There is a normal wall thickness of the distended urinary bladder. There is no demonstrated mass within the urinary bladder. There are no demonstrated bladder calculi. US/Kidney and Bladder IMPRESSION: Moderate degree of bilateral hydronephrosis. Cyst is seen in the lower pole of the right kidney. Electronically Signed: Ike Colón MD at 10:35 EDT ,
[2024-02-15] MEDS: Potassium Chloride Oral Tablet 20 MEQ 40 MEQ PO (09:42)
[2024-02-15] MEDS: Ipratropium Bromide 0.06% NASAL SPRAY 2 SPRAY NASAL (09:42)
[2024-02-15] MEDS: amLODIPine 2.5 MG Tablet PO (09:43)
[2024-02-15] MEDS: Pantoprazole Sodium 40 MG Tablet PO (09:43)
[2024-02-15] MEDS: Cefepime HCl 1 GM in 0.9% Normal Saline (50mL MB+) 50 ML IV ×2 (09:47→22:05)
--- NOTE | 2024-02-15 12:34 | CASEMGMT ---
ANISH KIRKPATRICK Assessment: Face to Face with pt for initial transition planning/care coordination assessment. ANISH KIRKPATRICK introduced self and role at [facility], pt voices understanding and consents to assessment. Pt is A&O x4 and answers all questions appropriately at this time. Pt lying in bed in no distress. Care providers, pharmacy, and demographics verified/updated. Admitting Dx: right pyelonephritis PCP:Ricky Specialists:Honey uro; lita Rodriguez Preferred Pharmacy: [facility] Insurance: [place] [facility] Prescription Benefit: yes LNOK: Maxine Delong, dtr; Liudmila Delong, granddtr Living Arrangements: Pt lives with dtr and 2 granddtrs in a two story home with 3 steps to enter. Pt reports she is I in ADL's and denies concerns at home. Pt reports sponge bathing d/t nephrostomy tubes. Transportation: Pt does not drive. Pt sister or dtrs transport her to medical appts. DME:shower chair, walker- doesn't use, w/c, raised toilet seat, grab bars in the bathroom. Pt reports she may be interested in a rollator for when she can go outside for walks. She does not want it obtained now. She is aware that she can follow with her PCP when she decides she wants one. HHC/SNF: [facility] HHC in the past. Denies SNF stays Pt states no concerns with going home at time of dc. Pt states she does her own nephrostomy care. Her sister or dtr flush them and change the dressings on her back. She denies need for any homegoing services. Pt states no further concerns/needs. CM to follow. Advised pt to ask CM if any further question/concerns/needs arise, voices understanding. Pt Goal: Home Plan: Home Albertina OCONNELL CM
[2024-02-15 14:27] VITALS: BP 125/73; PULSE 91; RESP 18; TEMP 36.6; O2SAT 97
[2024-02-15 14:37] VITALS: BP 125/73; PULSE 91; RESP 18; TEMP 36.6; O2SAT 97
[2024-02-15] MEDS: Magnesium Sulfate 4gm/100mL 4 GM/100 ML IV.SOLN. IV (17:18)
[2024-02-15] MEDS: 0.9% Normal Saline (250mL Bag) 250 ML 15 ML IV (17:19)
[2024-02-15 17:43] VITALS: O2SAT 95
[2024-02-15 22:07] VITALS: BP 125/63; PULSE 86; RESP 16; TEMP 36.9; O2SAT 96
[2024-02-16 04:36] VITALS: BP 108/96; PULSE 89; RESP 16; TEMP 36.7; O2SAT 95
[2024-02-16] MEDS: 0.9% Normal Saline (1000mL) 1,000 ML 125 ML IV ×3 (05:31→21:50)
[2024-02-16 05:57] VITALS: BMI 24.3
[2024-02-16 06:26] LABS: Absolute Lymphocyte Count 4.27 X10^3/uL (0.83-4.51); Absolute Neutrophil Count 5.1 X10^3/uL (2.0-7.7); Basophil# 0.05 X10^3/uL; Basophil% 0.5 % (0-1); Eosinophil# 0.35 X10^3/uL; Eosinophils% 3.3 % (0-5); Hematocrit 36.9 % (37-47); Hemoglobin 11.6 g/dL (12.0-15.0); Lymphocyte # 4.27 X10^3/ul (0.83-4.51); Lymphocyte % 40.6 % (19-41); Mean Corp Hgb Conc 31.4 g/dL (32-36); Mean Corpuscular Hgb 31.2 pg (27.0-32.0); Mean Corpuscular Volume 99.2 fL (81-99); Mean Platelet Vol. 10.5 fl (6.2-12.0); Monocyte# 0.71 X10^3/uL; Monocyte% 6.7 % (0-10); NRBC Flagged by Analyzer 0 % (0-5); Neutrophil % 48.4 % (47-70); Platelet Count 297 K/mm3 (150-450); RBC Distribution Width CV 13.2 % (11.6-14.6); RBC Distribution Width SD 47.8 fl (35.1-43.9); Red Blood Count 3.72 M/mm3 (4.2-5.4); White Blood Count 10.5 K/mm3 (4.4-11.0)
[2024-02-16 06:47] LABS: Anion Gap 5 (5-15); BUN 16 mg/dL (7-18); BUN/Creat Ratio 9.9 RATIO (10-20); Calcium,Total 8.5 mg/dL (8.5-10.1); Chloride 114 mmol/L (98-107); Creatinine, Serum 1.61 mg/dL (0.55-1.02); EST Glomerular Filtration Rate 34 mL/min (>60); Est Glom Filt Rate - Afr Amer 41 mL/min (>60); Estimated Creatinine Clearance 32.33 ml/min; Glucose 88 mg/dL (74-106); Magnesium 2.6 mg/dL (1.6-2.6); Potassium 3.6 mmol/L (3.5-5.1); Sodium Level 141 mmol/L (136-145)
[2024-02-16 08:28] VITALS: BP 136/66; PULSE 91; RESP 16; TEMP 37.1; O2SAT 97
[2024-02-16] MEDS: Ipratropium Bromide 0.06% NASAL SPRAY 2 SPRAY NASAL (08:31)
[2024-02-16] MEDS: Potassium Chloride Oral Tablet 20 MEQ PO (08:32)
[2024-02-16] MEDS: amLODIPine 2.5 MG Tablet PO (08:33)
[2024-02-16] MEDS: Pantoprazole Sodium 40 MG Tablet PO (08:33)
[2024-02-16 09:13] VITALS: RESP 18
[2024-02-16] MEDS: Cefepime HCl 1 GM in 0.9% Normal Saline (50mL MB+) 50 ML IV ×2 (12:07→21:51)
--- NOTE | 2024-02-16 13:29 | PCM.PN.HOSP ---
Reason for Visit Reason for Visit: Chills/fever Subjective Subjective Patient states she is feeling much better overall. I did discuss with her if we can get cultures finalized and there is an oral option for we could possibly get her home however cultures are still pending so we will have to keep her overnight. She has a history of multidrug-resistant organisms. Objective Data Objective Data Vital Signs: Vital Signs Temp Pulse Resp BP Pulse Ox O2 Del Method 98.7 F 91 18 136/66 H 97 Room Air 02/16/24 08:28 02/16/24 08:28 02/16/24 09:13 02/16/24 08:28 02/16/24 08:28 02/16/24 09:13 Oxygen Delivery Method Room Air Weight: 73 kg Body Mass Index (BMI) 24.3 Intake & Output: Intake and Output for Last 24 Hours 02/14/24 02/15/24 02/16/24 23:59 23:59 23:59 Intake Total 1100 / 1100 3718.75 / 4018.75 1385.42 / 1385.42 Output Total 1500 / 2050 2400 / 2400 Balance 1100 / 800 2218.75 / 1968.75 -1014.58 / -1014.58 Lab / Micro Data 02/16/24 05:40 02/16/24 05:40 Labs: Laboratory Results - last 24 hr 02/14/24 18:22: Urine Color Yellow, Urine Clarity Cloudy, Urine pH 7.0, Ur Specific [place] 1.005, Urine Protein 30 H, Urine Glucose (UA) Normal, Urine Ketones Negative, Urine Occult Blood 150 H, Urine Nitrite Negative, Urine Bilirubin Negative, Urine Urobilinogen Normal, Ur Leukocyte Esterase 500 H, Urine RBC 5-10 SEEN, Urine WBC >100 SEEN, Ur Squamous Epith Cells 0-5 SEEN, Ur Transition Epith Cell 0-5 SEEN, Ur Renal Epithelial Cell 0-5 SEEN, Urine Bacteria RARE, Urine Mucus 0 SEEN 02/16/24 05:40: WBC 10.5, RBC 3.72 L, Hgb 11.6 L, Hct 36.9 L, MCV 99.2 H, MCH 31.2, MCHC 31.4 L, RDW Std Deviation 47.8 H, RDW Coeff of [place]wey 13.2, Plt Count 297, MPV 10.5, Immature Gran % (Auto) 0.500, Neut % (Auto) 48.4, Lymph % (Auto) 40.6, [place] % (Auto) 6.7, Eos % (Auto) 3.3, Baso % (Auto) 0.5, Absolute Neuts (auto) 5.1, Absolute Lymphs (auto) 4.27, Nucleated RBC % 0, Sodium 141, Potassium 3.6, Chloride 114 H, Carbon Dioxide 22.0, Anion Gap 5, BUN 16, Creatinine 1.61 H, Estim Creat Clear Calc 32.33, Est GFR (MDRD) Af Amer 41 L, Est GFR (MDRD) Non-Af 34 L, BUN/Creatinine Ratio 9.9 L, Glucose 88, Calcium 8.5, Magnesium 2.6 Micro: Microbiology 02/14/24 18:22 Urine, Nephrostomy Urine Culture - Preliminary Gram negative king Gram positive organism 02/14/24 18:22 Urine, Nephrostomy Urine Culture - Preliminary GNR 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 Gram negative king Rhythm Strip Rhythm Strip: Sinus Tach Rate: 110 Ectopy: None Physical Exam Const alert, oriented x3, no apparent distress, average body habitus, healthy appearing and well nourished Constitutional Narrative: Very pleasant, older, white female, sitting up in bed, watching television, patient appears comfortable and nontoxic at this time General Appearance: cooperative HEENT normocephalic, head/scalp atraumatic, hearing grossly normal bilaterally and moist oral mucous membranes HEENT Narrative: Mallampati 2-3, no thrush Resp normal respiratory effort, no retractions, no use of accessory muscles and clear to auscultation bilaterally Auscultation: Negative for rales, rhonchi or wheezes Cardio regular rate, regular rhythm, S1 normal heart sound, S2 normal heart sound, no murmurs, no rub, no gallops and no clicks GI normal to inspection, nondistended, normoactive bowel sounds, soft to palpation, non-tender and non-distended GI Narrative: Bilateral nephrostomy tubes in place-urine is clear Extremity no clubbing, cyanosis or edema Extremity Narrative: Pedal pulses are 2+, radial pulses are 2+ Neuro oriented x3, moves all extremities and no focal motor deficits Speech: speech normal Psych affect normal Psych Narrative: Very pleasant, interacts appropriately Assessment & Plan Assessment/Plan (1) Pyelonephritis of right kidney: (2) UTI (urinary tract infection): (3) Sinus tachycardia: (4) Leukocytosis: QUALIFIERS: Leukocytosis type: unspecified Qualified Code(s): D72.829 - Elevated white blood cell count, unspecified (5) Hypokalemia: PLAN: Plan Complicated urinary tract infection -Renal ultrasound does not show evidence of pyelonephritis -Urine from bilateral nephrostomy tubes does show organism growing however identification has not yet been made nor do we have sensitivities -Blood cultures remain pending -Continue cefepime -Patient does have previous history of multidrug-resistant organisms causing infection so may need infectious disease input depending on organism identification Leukocytosis -Resolved Hypokalemia -Resolved Hypomagnesemia -Resolved 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 -History of AV fistula done in 2020 -Not currently on dialysis -Creatinine remains -Recommend ongoing outpatient follow-up with nephrology History of hypertension -Patient only takes amlodipine 2.5 mg daily -Will restart and monitor blood pressure as she is stable despite infection Hyperlipidemia -Patient has history of anaphylaxis to statin so therefore does not take 1 -Continue outpatient follow-up Hypothyroidism -Continue home levothyroxine GERD -Continue home PPI Seasonal allergies -Continue intranasal ipratropium History of gout -Patient is not on any chronic medications -No signs of acute flare History of tobacco abuse -Remote -Encourage ongoing cessation DVT prophylaxis -Continue Lovenox but increase dose from 30 to 40 mg daily CODE STATUS -full code is verified on admission Charges/Coding Visit Charges Inpatient E&M: 18560 Subs Hosp L2
[2024-02-16 16:12] VITALS: BP 145/85; PULSE 77; RESP 18; TEMP 36.7; O2SAT 98
[2024-02-16 21:48] VITALS: BP 130/73; PULSE 87; RESP 18; TEMP 36.4; O2SAT 98
[2024-02-17 04:52] VITALS: BP 133/73; PULSE 86; RESP 18; TEMP 36.6; O2SAT 96
[2024-02-17] MEDS: 0.9% Normal Saline (1000mL) 1,000 ML 125 ML IV (04:52)
[2024-02-17 05:09] LABS: Absolute Lymphocyte Count 4.47 X10^3/uL (0.83-4.51); Absolute Neutrophil Count 5.1 X10^3/uL (2.0-7.7); Basophil# 0.05 X10^3/uL; Basophil% 0.5 % (0-1); Eosinophil# 0.45 X10^3/uL; Eosinophils% 4.2 % (0-5); Hemoglobin 12.4 g/dL (12.0-15.0); Lymphocyte # 4.47 X10^3/ul (0.83-4.51); Lymphocyte % 41.4 % (19-41); Mean Corp Hgb Conc 32.6 g/dL (32-36); Mean Corpuscular Hgb 32.4 pg (27.0-32.0); Mean Corpuscular Volume 99.2 fL (81-99); Mean Platelet Vol. 10.4 fl (6.2-12.0); Monocyte# 0.73 X10^3/uL; Monocyte% 6.8 % (0-10); NRBC Flagged by Analyzer 0 % (0-5); Neutrophil # 5.07 X10^3/uL (2.7-7.7); Neutrophil % 46.8 % (47-70); Platelet Count 305 K/mm3 (150-450); RBC Distribution Width CV 13.2 % (11.6-14.6); RBC Distribution Width SD 47.9 fl (35.1-43.9); Red Blood Count 3.83 M/mm3 (4.2-5.4); White Blood Count 10.8 K/mm3 (4.4-11.0)
[2024-02-17 05:54] VITALS: BMI 25.9
[2024-02-17 05:54] LABS: Anion Gap 5 (5-15); BUN 15 mg/dL (7-18); BUN/Creat Ratio 9.3 RATIO (10-20); Calcium,Total 8.7 mg/dL (8.5-10.1); Chloride 115 mmol/L (98-107); Creatinine, Serum 1.62 mg/dL (0.55-1.02); EST Glomerular Filtration Rate 33 mL/min (>60); Est Glom Filt Rate - Afr Amer 40 mL/min (>60); Estimated Creatinine Clearance 32.13 ml/min; Glucose 90 mg/dL (74-106); Potassium 3.7 mmol/L (3.5-5.1); Sodium Level 142 mmol/L (136-145)
[2024-02-17] MEDS: Potassium Chloride Oral Tablet 20 MEQ PO (08:35)
--- NOTE | 2024-02-17 10:14 | PCM.DC.SUM ---
Providers Date of Admission: 02/14/24 Date of Discharge: 02/17/24 Primary Care Physician: Dr. Gerardo García MD Reason For Visit: RIGHT PYELONEPHRITIS Diagnosis Discharge Diagnosis (1) Pyelonephritis of right kidney: Status: Acute Code(s): N12 - Tubulo-interstitial nephritis, not specified as acute or chronic (2) UTI (urinary tract infection): Status: Acute Code(s): N39.0 - Urinary tract infection, site not specified (3) Sinus tachycardia: Status: Acute Code(s): R00.0 - Tachycardia, unspecified (4) Leukocytosis: Status: Acute Code(s): D72.829 - Elevated white blood cell count, unspecified Qualifiers: Leukocytosis type: unspecified Qualified Code(s): D72.829 - Elevated white blood cell count, unspecified (5) Hypokalemia: Status: Acute Code(s): E87.6 - Hypokalemia Medications at Discharge Home Medications albuterol sulfate 90 mcg/actuation aerosol inhaler (Ventolin HFA) 2 puff inhalation Q6H PRN Sob &/Or Wheezing 07/25/18 potassium chloride 20 mEq tablet,extended release(part/cryst) 20 meq PO DAILY supplement 09/01/20 amlodipine 2.5 mg tablet 2.5 mg PO DAILY BP #90 tabs 08/12/21 ipratropium bromide 42 mcg (0.06 %) nasal spray 2 spray intranasal DAILY allergie 11/23/21 pantoprazole 40 mg tablet,delayed release 40 mg PO DAILY GERD 03/27/23 levothyroxine 25 mcg tablet 25 mcg PO DAILY thyroid 02/14/24 ciprofloxacin HCl 500 mg tablet (Cipro) 500 mg PO BID #10 tabs 02/17/24 Hospital Course Procedures - (Renal ultrasound) Summary of Care Provided Minutes Spent on Discharge: 37 Hospital Course: Mrs. Delong is a 73-year-old white female who presented to the emergency department [facility] on 02/14/2024 with shaking chills and a documented temperature at home at 100.1 and concerns for UTI. The patient reported she has a history of recurrent urinary tract infections and had a right nephrostomy tube reinserted because it fell out. This was performed by [facility]. Her ureteral stents were changed about 1 week ago and she also has a left nephrostomy tube in place. She has had previous multiple admissions for sepsis related to urinary tract infections. She denied any abdominal pain, vomiting or diarrhea but was nauseated. She does not urinate at baseline due to her nephrostomy tube placement. She does have history of multidrug-resistant UTIs previously that have required longer-term IV antibiotics via PICC line. On presentation she had fever shaking chills and dysuria. Her symptoms began about a week before presentation. She was noted to have pyelonephritis on the right side and was given a single dose of IV antibiotics prior to being discharged when her nephrostomy tube was changed at [place]. Vital signs on presentation showed temperature of 98.4, heart rate was 120, blood pressure was 136/77, pulse ox was 96% room air. Her CBC showed a leukocytosis with a white count of 16.6, but was otherwise unremarkable. Coags were normal. Her chemistry panel showed normal electrolytes. She had an elevated BUN at 21 and a serum creatinine of 1.75 which is less than her previous and seems to be close to her baseline. Her liver function was normal. Her UA showed occult blood was negative for nitrites but did have significant leuk esterase, greater than 100 white cells and bacteria was present. She was admitted to the medical floor and placed on cefepime after cultures were obtained. She clinically improved very quickly and was not having any fevers after admission. Cultures did grow out 3 bacteria. We did obtain a renal ultrasound to rule out pyelonephritis and there was no evidence of Sheldon but she did have evidence of chronic hydronephrosis on her ultrasound. These were Klebsiella oxytoca, Pseudomonas aeruginosa, and Stenotrophomonas maltophilia. All colony counts were on the low side however patient did receive outpatient antibiotics so I am unclear if they are low because of that or because she is colonized so we will go ahead and proceed with treatment. All of the organisms identified were sensitive to ciprofloxacin. The patient does have reported allergy to Levaquin but she states she has taken ciprofloxacin previously without any difficulty. She was able to be discharged home in stable condition to complete a total of 7 days of antibiotics with ciprofloxacin 500 mg p.o. twice daily for another 5 days. Clinically she was back to her baseline. I encouraged close follow-up with her urologist and practice representative. Her renal function was stable at 1.6-1.7 throughout her entire hospital course. Discharge diagnoses: Polymicrobial complicated UTI Chronic bilateral hydronephrosis Chronic bilateral nephrostomy tubes Leukocytosis-resolved Hypokalemia-resolved Hypomagnesemia-resolved CKD stage IIIb Hypertension Hyperlipidemia Hypothyroidism GERD Seasonal allergies History of gout History of tobacco abuse Physical Exam Const alert, oriented x3, no apparent distress, average body habitus, no limitations, healthy appearing and well nourished Constitutional Narrative: Very pleasant, older, white female, sitting up in bed, watching television and on cell phone, patient appears comfortable and nontoxic at this time General Appearance: cooperative, comfortable, well kempt and well developed HEENT normocephalic, head/scalp atraumatic, hearing grossly normal bilaterally and moist oral mucous membranes HEENT Narrative: Mallampati is 2, no thrush Eyes PERRL and EOMs intact bilaterally Eyes Narrative: No scleral icterus Neck no lymphadenopathy and supple Neck Narrative: Trachea midline, no thyroid enlargement Resp normal respiratory effort, no retractions, no use of accessory muscles and clear to auscultation bilaterally Auscultation: Negative for rales, rhonchi or wheezes Cardio regular rate, regular rhythm, S1 normal heart sound, S2 normal heart sound, no murmurs, no rub, no gallops and no clicks GI normal to inspection, nondistended, normoactive bowel sounds, soft to palpation, non-tender and non-distended GI Narrative: Bilateral nephrostomy tubes in place-urine is clear Extremity no clubbing, cyanosis or edema Extremity Narrative: Pedal pulses are 2+, radial pulses are 2+ Skin Skin Narrative: Patient has no evidence of abscess or rash. Neuro oriented x3, CN's II-XII intact bilaterally, moves all extremities and no focal motor deficits Speech: speech normal Psych affect normal Psych Narrative: Very pleasant, interacts appropriately Weight / BMI Weight Weight: 77.7 kg Body Mass Index (BMI) 25.9 ABG / Lab / Microbiology Data 02/17/24 04:40 02/17/24 04:40 Laboratory: Laboratory Results - last 24 hr 02/14/24 18:22: Urine Color Yellow 02/14/24 18:22: Urine Color Yellow, Urine Clarity Cloudy 02/14/24 18:22: Urine Clarity Cloudy, Urine pH 6.5 02/14/24 18:22: Urine pH 7.0, Ur Specific [place] 1.010 02/14/24 18:22: Ur Specific [place] 1.005, Urine Protein 100 H 02/14/24 18:22: Urine Protein 30 H, Urine Glucose (UA) Normal 02/14/24 18:22: Urine Glucose (UA) Normal, Urine Ketones Negative 02/14/24 18:22: Urine Ketones Negative, Urine Occult Blood 250 H 02/14/24 18:22: Urine Occult Blood 150 H, Urine Nitrite Negative 02/14/24 18:22: Urine Nitrite Negative, Urine Bilirubin Negative 02/14/24 18:22: Urine Bilirubin Negative, Urine Urobilinogen Normal 02/14/24 18:22: Urine Urobilinogen Normal, Ur Leukocyte Esterase 500 H 02/14/24 18:22: Ur Leukocyte Esterase 500 H, Urine RBC 10-25 SEEN 02/14/24 18:22: Urine RBC 5-10 SEEN, Urine WBC >100 SEEN 02/14/24 18:22: Urine WBC >100 SEEN, Ur Squamous Epith Cells 0 SEEN 02/14/24 18:22: Ur Squamous Epith Cells 0-5 SEEN, Ur Transition Epith Cell 0-5 SEEN 02/14/24 18:22: Ur Transition Epith Cell 0-5 SEEN, Ur Renal Epithelial Cell 0-5 SEEN 02/14/24 18:22: Ur Renal Epithelial Cell 0-5 SEEN, Urine Bacteria RARE 02/14/24 18:22: Urine Bacteria RARE, Urine Mucus 0 SEEN 02/14/24 18:22: Urine Mucus 0 SEEN 02/17/24 04:40: WBC 10.8, RBC 3.83 L, Hgb 12.4, Hct 38.0, MCV 99.2 H, MCH 32.4 H, MCHC 32.6, RDW Std Deviation 47.9 H, RDW Coeff of [place] 13.2, Plt Count 305, MPV 10.4, Immature Gran % (Auto) 0.300, Neut % (Auto) 46.8 L, Lymph % (Auto) 41.4 H, [place] % (Auto) 6.8, Eos % (Auto) 4.2, Baso % (Auto) 0.5, Absolute Neuts (auto) 5.1, Absolute Lymphs (auto) 4.47, Nucleated RBC % 0, Sodium 142, Potassium 3.7, Chloride 115 H, Carbon Dioxide 22.0, Anion Gap 5, BUN 15, Creatinine 1.62 H, Estim Creat Clear Calc 32.13, Est GFR (MDRD) Af Amer 40 L, Est GFR (MDRD) Non-Af 33 L, BUN/Creatinine Ratio 9.3 L, Glucose 90, Calcium 8.7 Microbiology: Microbiology 02/14/24 18:22 Urine, Nephrostomy Urine Culture - Preliminary GNR Poss Pseudomonas sp GPC Poss Enterococcus sp Gram positive organism#2 02/14/24 18:04 Blood Culture (Wb) - Anticubital Right Blood Culture - Preliminary No growth in 48 hours. 02/14/24 17:39 Blood Culture (Wb) - Anticubital Right Blood Culture - Preliminary No growth in 48 hours. 02/14/24 18:22 Urine, Nephrostomy Urine Culture - Final Klebsiella oxytoca Stenotrophomonas maltophilia Pseudomonas aeruginosa D/C Instructions Discharge Diet: Low fat / Low cholesterol Discharge Activity: Return to Normal Activity Return to work on: 02/18/24 Meaningful Use Info Meaningful Use Diagnoses (Choose all that apply): None applicable Discharge Plan Admission Admit Date/Time: 02/14/24 19:23 Primary Reason for Your Visit: Chills/fever Attending Provider: Julianna Matthews Primary Care Provider: Gerardo García Chi Consulting Providers: Andres Maurer Instructions Additional Instructions / Restrictions: 1. Please follow-up with your urologist and practice representative Discharge Orders/Prescriptions Prescriptions: New ciprofloxacin HCl [Cipro] 500 mg tablet 500 mg PO BID Qty: 10 0RF Continued albuterol sulfate [Ventolin HFA] 90 mcg/actuation HFA aerosol inhaler 2 puff INHALATION Q6H PRN (Reason: Sob &/Or Wheezing) pantoprazole 40 mg tablet,delayed release (DR/EC) 40 mg PO DAILY Hold Instructions: Order Completed potassium chloride 20 MEQ tablet,ER particles/crystals 20 meq PO DAILY ipratropium bromide 42 mcg (0.06 %) spray,non-aerosol 2 spray INTRANASAL DAILY levothyroxine 25 mcg tablet 25 mcg PO DAILY amlodipine 2.5 mg tablet 2.5 mg PO DAILY Qty: 90 3RF Discontinued cephalexin 500 mg capsule 500 mg PO TID Referrals / Follow Up: Gerardo García Chi, MD [Primary Care Provider] - Within 1 Month Disposition Disposition (needs filled in before D/C Order can be placed): Home, Self Care Charges/Coding Visit Charges Inpatient E&M: 83066 Disch Hosp >30min
[2024-02-17 11:00] VITALS: PULSE 80; RESP 18; O2SAT 96
[2024-02-17] MEDS: amLODIPine 2.5 MG Tablet PO (11:02)
[2024-02-17] MEDS: Ipratropium Bromide 0.06% NASAL SPRAY 2 SPRAY NASAL (11:03)
[2024-02-17] MEDS: Pantoprazole Sodium 40 MG Tablet PO (11:04)
[2024-02-17 11:15] VITALS: BP 140/74; PULSE 72; RESP 18; TEMP 36.8; O2SAT 98
== END 2024-02-17 12:15 | disposition home or self-care (01) | DRG 690 ==
LOC: ED 19:14 → MS3 19:58
PROVIDERS: Admitting Provider Internal Medicine; Emergency Provider Emergency Medicine; PCP Family Medicine Geriatric Medicine; Referring Provider Internal Medicine; Visit Provider Internal Medicine
DX: N13.6 Pyonephrosis (principal); B96.5 Pseudomonas (aeruginosa) (mallei) (pseudomallei) as the cause of diseases classified elsewhere; N18.32 Chronic kidney disease, stage 3b; Z93.6 Other artificial openings of urinary tract status; I12.9 Hypertensive chronic kidney disease with stage 1 through stage 4 chronic kidney disease, or unspecified chronic kidney disease; E03.9 Hypothyroidism, unspecified; E78.5 Hyperlipidemia, unspecified; E83.42 Hypomagnesemia; K21.9 Gastro-esophageal reflux disease without esophagitis; E87.6 Hypokalemia; J30.2 Other seasonal allergic rhinitis; B96.1 Klebsiella pneumoniae [K. pneumoniae] as the cause of diseases classified elsewhere; B95.62 Methicillin resistant Staphylococcus aureus infection as the cause of diseases classified elsewhere; B96.89 Other specified bacterial agents as the cause of diseases classified elsewhere; Z96.0 Presence of urogenital implants; Z79.01 Long term (current) use of anticoagulants; Z79.899 Other long term (current) drug therapy; Z87.440 Personal history of urinary (tract) infections; Z86.16 Personal history of COVID-19; Z87.891 Personal history of nicotine dependence
CPT/HCPCS: 36415; 76770; 80048; 80053; 81001; 83605; 83735; 84100; 85025; 85610; 85730; 87040; 87077; 87086; 87088; 87184; 87186; 93005; 94668; 99252; 99285; J7030; J7050; A4216; G0463

== ENCOUNTER → 2024-03-17 | Outpatient (CLI) | payer MEDICARE, SELFPAY ==
[2024-03-17 13:01] LABS: Thyroid Stim Hormone (TSH) 2.11 uIU/mL (0.358-3.74)
== END | disposition home or self-care (01) ==
LOC: LAB 10:56
PROVIDERS: PCP Family Medicine Geriatric Medicine; Visit Provider Family Medicine Geriatric Medicine
DX: E21.3 Hyperparathyroidism, unspecified (principal); E03.9 Hypothyroidism, unspecified
CPT/HCPCS: 36415; 84443

== ENCOUNTER → 2024-05-27 | Outpatient (CLI) | payer MEDICARE, SELFPAY ==
--- NOTE | 2024-05-27 10:27 | RAD_ITS ---
STUDY: X-RAY - RIGHT WRIST REASON FOR EXAM: Female, 73 years old. RIGHT WRIST PAIN TECHNIQUE: 3 view(s) of the wrist were obtained. COMPARISON: None. FINDINGS: Normal visualized distal radius and ulna. Normal radiocarpal articulation. Normal distal radioulnar articulation. Normal carpal bones. Normal carpal articulations. Normal carpometacarpal articulation of the thumb. Normal second through fifth carpometacarpal articulations. Normal visualized metacarpal bones. The soft tissue structures are unremarkable. RAD/Wrist min 3 Views IMPRESSION: Normal x-ray examination of the wrist. Electronically Signed: Umer Ayon MD at 12:44 EDT ,
--- NOTE | 2024-05-27 10:27 | RAD_ITS ---
STUDY: X-RAY - RIGHT KNEE REASON FOR EXAM: Female, 73 years old. RIGHT KNEE PAIN TECHNIQUE: 4 view(s) of the knee. COMPARISON: None. FINDINGS: Normal visualized distal femur. Normal visualized proximal tibia and fibula. Normal proximal tibiofibular articulation. There is mild degenerative arthrosis of the medial femorotibial compartment. There is mild degenerative arthrosis of the lateral femorotibial compartment. There is mild degenerative arthrosis of the patellofemoral articulation. There is a soft tissue prominence in the suprapatellar region suggesting a small volume joint effusion. The soft tissue structures are unremarkable. RAD/Knee 4 or More Views IMPRESSION: Degenerative arthrosis. Electronically Signed: Umer Ayon MD at 12:43 EDT ,
[2024-05-27 11:53] LABS: Absolute Lymphocyte Count 5.51 X10^3/uL (0.83-4.51); Absolute Neutrophil Count 6.9 X10^3/uL (2.0-7.7); Basophil# 0.06 X10^3/uL; Basophil% 0.4 % (0-1); Eosinophil# 0.15 X10^3/uL; Eosinophils% 1.1 % (0-5); Hemoglobin 13.4 g/dL (12.0-15.0); Lymphocyte # 5.51 X10^3/ul (0.83-4.51); Lymphocyte % 40.9 % (19-41); Mean Corp Hgb Conc 31.9 g/dL (32-36); Mean Corpuscular Hgb 29.4 pg (27.0-32.0); Mean Corpuscular Volume 92.1 fL (81-99); Mean Platelet Vol. 10.1 fl (6.2-12.0); Monocyte# 0.79 X10^3/uL; Monocyte% 5.9 % (0-10); NRBC Flagged by Analyzer 0 % (0-5); Neutrophil % 51.2 % (47-70); POSITIVE DIFFERENTIAL YES; Platelet Count 409 K/mm3 (150-450); RBC Distribution Width CV 14.8 % (11.6-14.6); RBC Distribution Width SD 50.3 fl (35.1-43.9); Red Blood Count 4.56 M/mm3 (4.2-5.4); White Blood Count 13.5 K/mm3 (4.4-11.0)
[2024-05-27 12:47] LABS: PTHIN 87.4 pg/mL (18.4-80.1)
[2024-05-27 12:54] LABS: Vitamin D,25 Hydroxy 37.8 ng/mL
[2024-05-27 13:48] LABS: ALB/GLOB Ratio 0.5 RATIO (0.9-2.4); AST(SGOT) 15 U/L (15-37); Alanine Aminotransfer ALT/SGPT 10 U/L (13-56); Albumin, Serum 2.8 g/dL (3.2-5.0); Alkaline Phosphatase 140 U/L (45-117); Anion Gap 8 (5-15); BUN 24 mg/dL (7-18); Chloride 104 mmol/L (98-107); Cholesterol 189 mg/dL (200); EST Glomerular Filtration Rate 26 mL/min (>60); Est Glom Filt Rate - Afr Amer 32 mL/min (>60); Globulin 5.5 g/dL (2.2-4.2); Glucose 96 mg/dL (74-106); High Density Lipoprotein 41 mg/dL; Phosphorus 3.5 mg/dL (2.5-4.9); Potassium 4.2 mmol/L (3.5-5.1); Protein, Total 8.3 g/dL (6.4-8.2); Sodium Level 135 mmol/L (136-145); Thyroid Stim Hormone (TSH) 2.31 uIU/mL (0.358-3.74); Triglycerides 92 mg/dL; Very Low Density Lipoprotein 18 mg/dL (5-40)
== END | disposition home or self-care (01) ==
PROVIDERS: PCP Family Medicine Geriatric Medicine; Referring Provider Family Medicine Geriatric Medicine; Visit Provider Family Medicine Geriatric Medicine
DX: M25.561 Pain in right knee (principal); M25.531 Pain in right wrist; I10 Essential (primary) hypertension; E55.9 Vitamin D deficiency, unspecified; E78.5 Hyperlipidemia, unspecified
CPT/HCPCS: 36415; 73110; 73564; 80053; 80061; 82306; 83970; 84100; 84443; 85025

== ENCOUNTER 2024-06-17 20:20 | Emergency (ER) | payer MEDICARE, SELFPAY ==
[2024-06-17 20:21] VITALS: BP 118/77; PULSE 113; RESP 17; TEMP 36.6; O2SAT 97
[2024-06-17 20:22] VITALS: BP 142/59; PULSE 105; RESP 18; TEMP 37.6; O2SAT 97
[2024-06-17 20:32] VITALS: BMI 25.2
[2024-06-17 21:22] VITALS: BP 130/71; PULSE 99; RESP 19; TEMP 37; O2SAT 98
[2024-06-17] MEDS: 0.9% Normal Saline (500mL Bag) 500 ML 1000 ML IV (21:36)
[2024-06-17 21:47] LABS: Mucous, Urine 0 SEEN /hpf (<or=2+)
[2024-06-17 21:50] LABS: Color, Urine Yellow (Yellow); Glucose, Dipstick Normal (Normal); Ketone-Dipstick Negative (Negative); Leukocyte Esterase-Dipstick 500 /ul (Negative); Nitrite-Dipstick Positive (Negative); Occult Blood-Urine 250 /ul (Negative); Protein-Dipstick 100 mg/dl (Negative); Urine Bilirubin Dipstick Negative (Negative); Urine Clarity Cloudy (Clear); Urine Urobilinogen Normal (Normal); Urine pH 6.5 (5.0 - 8.0)
[2024-06-17 21:51] LABS: Color, Urine Yellow (Yellow); Glucose, Dipstick Normal (Normal); Ketone-Dipstick Negative (Negative); Leukocyte Esterase-Dipstick 500 /ul (Negative); Nitrite-Dipstick Positive (Negative); Occult Blood-Urine 150 /ul (Negative); Protein-Dipstick 100 mg/dl (Negative); Specific Gravity, Urine 1.015 (1.002-1.030); Urine Bilirubin Dipstick Negative (Negative); Urine Clarity Cloudy (Clear); Urine Urobilinogen Normal (Normal)
[2024-06-17 21:59] LABS: Absolute Lymphocyte Count 3.58 X10^3/uL (0.83-4.51); Absolute Neutrophil Count 5.7 X10^3/uL (2.0-7.7); Basophil# 0.04 X10^3/uL; Basophil% 0.4 % (0-1); Eosinophil# 0.04 X10^3/uL; Eosinophils% 0.4 % (0-5); Hematocrit 36.9 % (37-47); Lymphocyte # 3.58 X10^3/ul (0.83-4.51); Lymphocyte % 33.9 % (19-41); Mean Corp Hgb Conc 32.5 g/dL (32-36); Mean Corpuscular Hgb 29.6 pg (27.0-32.0); Mean Corpuscular Volume 90.9 fL (81-99); Mean Platelet Vol. 10.1 fl (6.2-12.0); Monocyte# 1.16 X10^3/uL; NRBC Flagged by Analyzer 0 % (0-5); Neutrophil # 5.72 X10^3/uL (2.7-7.7); Platelet Count 213 K/mm3 (150-450); RBC Distribution Width CV 14.9 % (11.6-14.6); RBC Distribution Width SD 49.6 fl (35.1-43.9); Red Blood Count 4.06 M/mm3 (4.2-5.4); White Blood Count 10.6 K/mm3 (4.4-11.0)
[2024-06-17 22:00] VITALS: BP 116/62; PULSE 94; RESP 18; TEMP 37; O2SAT 98
[2024-06-17 22:01] LABS: Bacteria 4+ /hpf (None Seen); Red Blood Cells-Urine 10-25 SEEN /hpf (0-5); Squamous Epithelial Cells - UA 0-5 SEEN /hpf (5-10); White Blood Cells >100 SEEN /hpf (0-5)
[2024-06-17 22:02] LABS: Renal Epithelial Cells 0-5 SEEN /hpf (0-5); Transitional Epithelial - Ur 0-5 SEEN /hpf (0-5)
[2024-06-17 22:05] LABS: Bacteria 4+ /hpf (None Seen); Red Blood Cells-Urine 10-25 SEEN /hpf (0-5); Renal Epithelial Cells 0-5 SEEN /hpf (0-5); Squamous Epithelial Cells - UA 0-5 SEEN /hpf (5-10); Transitional Epithelial - Ur 0-5 SEEN /hpf (0-5); White Blood Cells >100 SEEN /hpf (0-5)
[2024-06-17 22:16] LABS: ALB/GLOB Ratio 0.5 RATIO (0.9-2.4); AST(SGOT) 16 U/L (15-37); Alanine Aminotransfer ALT/SGPT 7 U/L (13-56); Albumin, Serum 2.5 g/dL (3.2-5.0); Alkaline Phosphatase 116 U/L (45-117); Anion Gap 7 (5-15); BUN 18 mg/dL (7-18); BUN/Creat Ratio 8.4 RATIO (10-20); Calcium,Total 8.5 mg/dL (8.5-10.1); Chloride 107 mmol/L (98-107); Creatinine, Serum 2.14 mg/dL (0.55-1.02); EST Glomerular Filtration Rate 24 mL/min (>60); Est Glom Filt Rate - Afr Amer 29 mL/min (>60); Estimated Creatinine Clearance 24.32 ml/min; Globulin 5.2 g/dL (2.2-4.2); Glucose 99 mg/dL (74-106); Lactic Acid 0.9 mmol/L (0.4-1.9); Potassium 4.3 mmol/L (3.5-5.1); Protein, Total 7.7 g/dL (6.4-8.2); Sodium Level 139 mmol/L (136-145)
--- NOTE | 2024-06-17 22:17 | EDS_ITS ---
HPI History of Present Illness Chief Complaint: Fever [facility] Medical History Acute diarrhea LULY (acute kidney injury) Asthma Dunbar's palsy Bilateral hydronephrosis Bladder disease Blood disorder Bruising Cancer Cardiology follow-up encounter Cervical cancer Chronic kidney disease Chronic renal failure, stage 4 (severe) Dialysis patient Easy bruising Essential hypertension Former smoker Gout High anion gap metabolic acidosis History of biliary stent insertion History of cervical cancer History of Clostridium difficile infection History of COVID-19 History of irregular heartbeat History of renal disease Hx of cataract Hx of echocardiogram Hx of vertigo Hyperlipidemia Hypertension Hypokalemia Hyponatremia Kidney disease Leg cramps Leukocytosis Lymphocytosis Mild intermittent asthma MRSA infection Near syncope Problem with dialysis access Status post placement of implantable loop recorder (~03/29/20) Thyroid disease Urinary incontinence UTI (urinary tract infection) Wears dentures Home Medications ?Medication ?Instructions ?Recorded ?Last Taken ?Type albuterol sulfate 90 mcg/actuation 2 puff inhalation Q6H PRN Sob &/Or 07/25/18 11/10/23 History aerosol inhaler (Ventolin HFA) Wheezing potassium chloride 20 mEq 20 meq PO DAILY supplement 09/01/20 02/14/24 10:00 History tablet,extended release(part/cryst) amlodipine 2.5 mg tablet 2.5 mg PO DAILY BP #90 tabs 08/12/21 02/14/24 10:00 Rx ipratropium bromide 42 mcg (0.06 2 spray intranasal DAILY allergie 11/23/21 02/14/24 10:00 History %) nasal spray pantoprazole 40 mg tablet,delayed 40 mg PO DAILY GERD 03/27/23 02/14/24 10:00 History release levothyroxine 25 mcg tablet 25 mcg PO DAILY thyroid 02/14/24 02/14/24 07:00 History Allergy/AdvReac Type Severity Reaction Status Date / Time clindamycin Allergy Severe unsure of Verified 06/17/24 20:20 reaction pravastatin Allergy Severe Chest Verified 06/17/24 20:20 tightness procaine (From Novocain) Allergy Severe NEEDS Verified 06/17/24 20:20 FOLLOW-UP sulfamethoxazole (From Allergy Severe Shortness Verified 06/17/24 20:20 Bactrim) of breath trimethoprim (From Bactrim) Allergy Severe Shortness Verified 06/17/24 20:20 of breath levofloxacin (From Levaquin) Allergy UNSURE OF Verified 06/17/24 20:20 REACTION [id number] Reductase Allergy Anaphylaxis Verified 06/17/24 20:20 Inhibitor methylprednisolone AdvReac Severe Pain in Verified 06/17/24 20:20 joints Family History Father , 32 yrs old CAD (coronary artery disease) History of coronary artery bypass surgery Mother Cancer Lung CA, Hx tobacco use. Surgical History History of arteriovenostomy for renal dialysis (~09/2021) History of cardiac catheterization (~01/08/18) History of cardiac catheterization History of cholecystectomy History of excision of mass History of hysterectomy History of loop recorder history of radium implant Hx of cystoscopy S/P arteriovenous (AV) fistula creation Social History household members: spouse and children number of children: 6 current occupational status: retired history of recent travel: No Smoking Status: Former smoker second hand exposure: No alcohol intake: never substance use type: does not use what type of physical activity do you participate in: walking saurabh/anglican: Non-Protestant/Independent seatbelt use: always do you feel safe at home: Yes additional social history: - Fernando EXAM Physical Exam Const Vital Signs: 06/17/24 20:21 06/17/24 20:22 06/17/24 20:31 Temperature 97.8 F 99.7 F H Temperature Source Temporal Oral Pulse Rate 113 H 105 H Respiratory Rate 17 18 Respiratory Pattern Normal Blood Pressure 118/77 142/59 H Blood Pressure Mean 90 86 Pulse Ox 97 97 Oxygen Delivery Method Room Air Room Air 06/17/24 21:22 06/17/24 22:00 06/17/24 22:22 Temperature 98.6 F 98.6 F 98.6 F Temperature Source Oral Oral Pulse Rate 99 94 94 Respiratory Rate 19 H 18 17 Respiratory Pattern Blood Pressure 130/71 H 116/62 118/61 Blood Pressure Mean 90 80 80 Pulse Ox 98 98 98 Oxygen Delivery Method Room Air Room Air [facility] Lab Data Attestation: I reviewed the patient's lab results. Lab results narrative: White count is upper end of normal. There is no shift. Comprehensive metabolic panel reveals a elevated creatinine of 2.14.Creatinine was 1.62 February 17, 2024 and 2.0 May 27, 2024 Lactate is normal. Therefore blood cultures were not obtained. Labs: Laboratory Results - last 24 hr 06/17/24 06/17/24 06/17/24 21:31 21:31 21:31 WBC 10.6 RBC 4.06 L Hgb 12.0 Hct 36.9 L MCV 90.9 MCH 29.6 MCHC 32.5 RDW Std Deviation 49.6 H RDW Coeff of [place] 14.9 H Plt Count 213 MPV 10.1 Immature Gran % (Auto) 0.300 Neut % (Auto) 54.0 Lymph % (Auto) 33.9 [place] % (Auto) 11.0 H Eos % (Auto) 0.4 Baso % (Auto) 0.4 Absolute Neuts (auto) 5.7 Absolute Lymphs (auto) 3.58 Nucleated RBC % 0 Sodium 139 Potassium 4.3 Chloride 107 Carbon Dioxide 25.0 Anion Gap 7 BUN 18 Creatinine 2.14 H Estim Creat Clear Calc 24.32 Est GFR (MDRD) Af Amer 29 L Est GFR (MDRD) Non-Af 24 L BUN/Creatinine Ratio 8.4 L Glucose 99 Lactic Acid 0.9 Calcium 8.5 Total Bilirubin 0.80 AST 16 ALT 7 L Alkaline Phosphatase 116 Total Protein 7.7 Albumin 2.5 L Globulin 5.2 H Albumin/Globulin Ratio 0.5 L Urine Color Yellow Yellow Urine Clarity Cloudy Cloudy Urine pH 6.5 Ur Specific [place] Urine Protein Urine Glucose (UA) Urine Ketones Urine Occult Blood Urine Nitrite Urine Bilirubin Urine Urobilinogen Ur Leukocyte Esterase Urine RBC Urine WBC Ur Squamous Epith Cells Ur Transition Epith Cell Ur Renal Epithelial Cell Urine Bacteria Urine Mucus 06/17/24 06/17/24 06/17/24 21:31 21:31 21:31 WBC RBC Hgb Hct MCV MCH MCHC RDW Std Deviation RDW Coeff of [place] Plt Count MPV Immature Gran % (Auto) Neut % (Auto) Lymph % (Auto) [place] % (Auto) Eos % (Auto) Baso % (Auto) Absolute Neuts (auto) Absolute Lymphs (auto) Nucleated RBC % Sodium Potassium Chloride Carbon Dioxide Anion Gap BUN Creatinine Estim Creat Clear Calc Est GFR (MDRD) Af Amer Est GFR (MDRD) Non-Af BUN/Creatinine Ratio Glucose Lactic Acid Calcium Total Bilirubin AST ALT Alkaline Phosphatase Total Protein Albumin Globulin Albumin/Globulin Ratio Urine Color Urine Clarity Urine pH 8.0 Ur Specific [place] 1.010 1.015 Urine Protein 100 H 100 H Urine Glucose (UA) Normal Urine Ketones Urine Occult Blood Urine Nitrite Urine Bilirubin Urine Urobilinogen Ur Leukocyte Esterase Urine RBC Urine WBC Ur Squamous Epith Cells Ur Transition Epith Cell Ur Renal Epithelial Cell Urine Bacteria Urine Mucus 06/17/24 06/17/24 06/17/24 21:31 21:31 21:31 WBC RBC Hgb Hct MCV MCH MCHC RDW Std Deviation RDW Coeff of [place] Plt Count MPV Immature Gran % (Auto) Neut % (Auto) Lymph % (Auto) [place] % (Auto) Eos % (Auto) Baso % (Auto) Absolute Neuts (auto) Absolute Lymphs (auto) Nucleated RBC % Sodium Potassium Chloride Carbon Dioxide Anion Gap BUN Creatinine Estim Creat Clear Calc Est GFR (MDRD) Af Amer Est GFR (MDRD) Non-Af BUN/Creatinine Ratio Glucose Lactic Acid Calcium Total Bilirubin AST ALT Alkaline Phosphatase Total Protein Albumin Globulin Albumin/Globulin Ratio Urine Color Urine Clarity Urine pH Ur Specific [place] Urine Protein Urine Glucose (UA) Normal Urine Ketones Negative Negative Urine Occult Blood 250 H 150 H Urine Nitrite Positive H Urine Bilirubin Urine Urobilinogen Ur Leukocyte Esterase Urine RBC Urine WBC Ur Squamous Epith Cells Ur Transition Epith Cell Ur Renal Epithelial Cell Urine Bacteria Urine Mucus 06/17/24 06/17/24 06/17/24 21:31 21:31 21:31 WBC RBC Hgb Hct MCV MCH MCHC RDW Std Deviation RDW Coeff of [place] Plt Count MPV Immature Gran % (Auto) Neut % (Auto) Lymph % (Auto) [place] % (Auto) Eos % (Auto) Baso % (Auto) Absolute Neuts (auto) Absolute Lymphs (auto) Nucleated RBC % Sodium Potassium Chloride Carbon Dioxide Anion Gap BUN Creatinine Estim Creat Clear Calc Est GFR (MDRD) Af Amer Est GFR (MDRD) Non-Af BUN/Creatinine Ratio Glucose Lactic Acid Calcium Total Bilirubin AST ALT Alkaline Phosphatase Total Protein Albumin Globulin Albumin/Globulin Ratio Urine Color Urine Clarity Urine pH Ur Specific [place] Urine Protein Urine Glucose (UA) Urine Ketones Urine Occult Blood Urine Nitrite Positive H Urine Bilirubin Negative Negative Urine Urobilinogen Normal Normal Ur Leukocyte Esterase 500 H Urine RBC Urine WBC Ur Squamous Epith Cells Ur Transition Epith Cell Ur Renal Epithelial Cell Urine Bacteria Urine Mucus 06/17/24 06/17/24 06/17/24 21:31 21:31 21:31 WBC RBC Hgb Hct MCV MCH MCHC RDW Std Deviation RDW Coeff of [place] Plt Count MPV Immature Gran % (Auto) Neut % (Auto) Lymph % (Auto) [place] % (Auto) Eos % (Auto) Baso % (Auto) Absolute Neuts (auto) Absolute Lymphs (auto) Nucleated RBC % Sodium Potassium Chloride Carbon Dioxide Anion Gap BUN Creatinine Estim Creat Clear Calc Est GFR (MDRD) Af Amer Est GFR (MDRD) Non-Af BUN/Creatinine Ratio Glucose Lactic Acid Calcium Total Bilirubin AST ALT Alkaline Phosphatase Total Protein Albumin Globulin Albumin/Globulin Ratio Urine Color Urine Clarity Urine pH Ur Specific [place] Urine Protein Urine Glucose (UA) Urine Ketones Urine Occult Blood Urine Nitrite Urine Bilirubin Urine Urobilinogen Ur Leukocyte Esterase 500 H Urine RBC 10-25 SEEN 10-25 SEEN Urine WBC >100 SEEN >100 SEEN Ur Squamous Epith Cells 0-5 SEEN Ur Transition Epith Cell Ur Renal Epithelial Cell Urine Bacteria Urine Mucus 06/17/24 06/17/24 06/17/24 21:31 21:31 21:31 WBC RBC Hgb Hct MCV MCH MCHC RDW Std Deviation RDW Coeff of [place] Plt Count MPV Immature Gran % (Auto) Neut % (Auto) Lymph % (Auto) [place] % (Auto) Eos % (Auto) Baso % (Auto) Absolute Neuts (auto) Absolute Lymphs (auto) Nucleated RBC % Sodium Potassium Chloride Carbon Dioxide Anion Gap BUN Creatinine Estim Creat Clear Calc Est GFR (MDRD) Af Amer Est GFR (MDRD) Non-Af BUN/Creatinine Ratio Glucose Lactic Acid Calcium Total Bilirubin AST ALT Alkaline Phosphatase Total Protein Albumin Globulin Albumin/Globulin Ratio Urine Color Urine Clarity Urine pH Ur Specific [place] Urine Protein Urine Glucose (UA) Urine Ketones Urine Occult Blood Urine Nitrite Urine Bilirubin Urine Urobilinogen Ur Leukocyte Esterase Urine RBC Urine WBC Ur Squamous Epith Cells 0-5 SEEN Ur Transition Epith Cell 0-5 SEEN 0-5 SEEN Ur Renal Epithelial Cell 0-5 SEEN 0-5 SEEN Urine Bacteria 4+ Urine Mucus 06/17/24 06/17/24 21:31 21:31 WBC RBC Hgb Hct MCV MCH MCHC RDW Std Deviation RDW Coeff of [place] Plt Count MPV Immature Gran % (Auto) Neut % (Auto) Lymph % (Auto) [place] % (Auto) Eos % (Auto) Baso % (Auto) Absolute Neuts (auto) Absolute Lymphs (auto) Nucleated RBC % Sodium Potassium Chloride Carbon Dioxide Anion Gap BUN Creatinine Estim Creat Clear Calc Est GFR (MDRD) Af Amer Est GFR (MDRD) Non-Af BUN/Creatinine Ratio Glucose Lactic Acid Calcium Total Bilirubin AST ALT Alkaline Phosphatase Total Protein Albumin Globulin Albumin/Globulin Ratio Urine Color Urine Clarity Urine pH Ur Specific [place] Urine Protein Urine Glucose (UA) Urine Ketones Urine Occult Blood Urine Nitrite Urine Bilirubin Urine Urobilinogen Ur Leukocyte Esterase Urine RBC Urine WBC Ur Squamous Epith Cells Ur Transition Epith Cell Ur Renal Epithelial Cell Urine Bacteria 4+ Urine Mucus 0 SEEN 0 SEEN Treatment and Re-Evaluation :: Case discussed with hospitalist. Confirmed that Dr. Carbone is in-house tomorrow and contacted urology who will assist as needed. Formal consult was placed by me since I spoke with him at [phone]. Discharge Plan Triage Chief Complaint: Fever ED Provider: Altaf Villa Dx/Rx/DC Orders Clinical Impression: Pyelonephritis of left kidney, Hypothyroid, History of cervical cancer, Pyelonephritis of right kidney, Acute kidney injury superimposed on stage 3a chronic kidney disease, Arteriovenous fistula of left upper extremity Prescriptions: No Action albuterol sulfate [Ventolin HFA] 90 mcg/actuation HFA aerosol inhaler 2 puff INHALATION Q6H PRN (Reason: Sob &/Or Wheezing) pantoprazole 40 mg tablet,delayed release (DR/EC) 40 mg PO DAILY potassium chloride 20 MEQ tablet,ER particles/crystals 20 meq PO DAILY ipratropium bromide 42 mcg (0.06 %) spray,non-aerosol 2 spray INTRANASAL DAILY levothyroxine 25 mcg tablet 25 mcg PO DAILY amlodipine 2.5 mg tablet 2.5 mg PO DAILY Qty: 90 3RF Primary Care Provider: Gerardo García Chi Referrals: Gerardo García Chi, MD [Primary Care Provider] - Print Language: Czech Disposition Disposition: Acute Care Hospital [facility]
[2024-06-17 22:22] VITALS: BP 118/61; PULSE 94; RESP 17; TEMP 37; O2SAT 98
[2024-06-17] MEDS: Ceftriaxone 1 GM/50 ML BAG IV (22:26)
[2024-06-17 23:00] VITALS: BP 112/70; PULSE 84; RESP 19; TEMP 36.8; O2SAT 98
[2024-06-18] VITALS: BP 114/64; PULSE 86; RESP 16; TEMP 36.5; O2SAT 98
[2024-06-18 02:00] VITALS: BP 112/62; PULSE 88; RESP 16; O2SAT 91
[2024-06-18 04:00] VITALS: BP 122/64; PULSE 81; RESP 16; O2SAT 92
[2024-06-18 06:00] VITALS: BP 110/52; PULSE 92; RESP 16; O2SAT 98
--- NOTE | 2024-06-18 06:49 | ED.RN ---
report called to Prabha at [facility] at this time.
== END 2024-06-18 08:39 | disposition home or self-care (01) ==
PROVIDERS: Emergency Provider Emergency Medicine; PCP Family Medicine Geriatric Medicine; Visit Provider Emergency Medicine
DX: N12 Tubulo-interstitial nephritis, not specified as acute or chronic (principal); N18.31 Chronic kidney disease, stage 3a; I12.9 Hypertensive chronic kidney disease with stage 1 through stage 4 chronic kidney disease, or unspecified chronic kidney disease; E03.9 Hypothyroidism, unspecified; N17.9 Acute kidney failure, unspecified; Z87.891 Personal history of nicotine dependence; Z79.51 Long term (current) use of inhaled steroids; Z79.899 Other long term (current) drug therapy; Z86.16 Personal history of COVID-19
CPT/HCPCS: 80053; 81001; 83605; 85025; 87077; 87086; 87088; 87186; 96365; 99284; J7040; A4216

== ENCOUNTER → 2024-08-01 | Outpatient (CLI) | payer MEDICARE, SELFPAY ==
[2024-08-01 11:08] LABS: Absolute Lymphocyte Count 5.09 X10^3/uL (0.83-4.51); Absolute Neutrophil Count 6.7 X10^3/uL (2.0-7.7); Basophil# 0.07 X10^3/uL; Basophil% 0.5 % (0-1); Eosinophil# 0.15 X10^3/uL; Eosinophils% 1.2 % (0-5); Hematocrit 43.3 % (37-47); Hemoglobin 13.7 g/dL (12.0-15.0); Lymphocyte # 5.09 X10^3/ul (0.83-4.51); Lymphocyte % 39.1 % (19-41); Mean Corp Hgb Conc 31.6 g/dL (32-36); Mean Corpuscular Hgb 29.1 pg (27.0-32.0); Mean Corpuscular Volume 91.9 fL (81-99); Mean Platelet Vol. 9.8 fl (6.2-12.0); Monocyte% 6.9 % (0-10); NRBC Flagged by Analyzer 0 % (0-5); Neutrophil # 6.74 X10^3/uL (2.7-7.7); Neutrophil % 51.8 % (47-70); POSITIVE DIFFERENTIAL YES; Platelet Count 367 K/mm3 (150-450); RBC Distribution Width CV 13.8 % (11.6-14.6); RBC Distribution Width SD 46.7 fl (35.1-43.9); Red Blood Count 4.71 M/mm3 (4.2-5.4)
[2024-08-01 11:09] LABS: Differential Indicated SCAN CRITERIA MET
[2024-08-01 11:41] LABS: ALB/GLOB Ratio 0.5 RATIO (0.9-2.4); AST(SGOT) 12 U/L (15-37); Alanine Aminotransfer ALT/SGPT 7 U/L (13-56); Albumin, Serum 2.8 g/dL (3.2-5.0); Alkaline Phosphatase 140 U/L (45-117); Anion Gap 8 (5-15); BUN 21 mg/dL (7-18); BUN/Creat Ratio 10.6 RATIO (10-20); Calcium,Total 9.2 mg/dL (8.5-10.1); Chloride 106 mmol/L (98-107); Cholesterol 185 mg/dL (200); Creatinine, Serum 1.98 mg/dL (0.55-1.02); EST Glomerular Filtration Rate 26 mL/min (>60); Est Glom Filt Rate - Afr Amer 32 mL/min (>60); Globulin 5.8 g/dL (2.2-4.2); Glucose 106 mg/dL (74-106); High Density Lipoprotein 45 mg/dL; Potassium 4.2 mmol/L (3.5-5.1); Protein, Total 8.6 g/dL (6.4-8.2); Sodium Level 137 mmol/L (136-145); Triglycerides 120 mg/dL; Very Low Density Lipoprotein 24 mg/dL (5-40)
== END | disposition home or self-care (01) ==
LOC: LAB 10:48
PROVIDERS: PCP Family Medicine Geriatric Medicine; Referring Provider Family Medicine Geriatric Medicine; Visit Provider Family Medicine Geriatric Medicine
DX: I10 Essential (primary) hypertension (principal); E55.9 Vitamin D deficiency, unspecified; E78.5 Hyperlipidemia, unspecified
CPT/HCPCS: 36415; 80053; 80061; 82306; 84443; 85025

== ENCOUNTER 2024-09-06 09:36 | Emergency (ER) | payer MEDICARE, SELFPAY ==
[2024-09-06] VITALS (10 sets, daily range): BP systolic 102–141; BP diastolic 61–84; PULSE 85–113; RESP 14–22; TEMP 36.8–37; O2SAT 95–98; BMI 25.2
--- NOTE | 2024-09-06 10:19 | EKG12_ITS ---
Test Reason : GENERAL Blood Pressure : / mmHG Vent. Rate : 095 BPM Atrial Rate : 095 BPM P-R Int : 158 ms QRS Dur : 080 ms QT Int : 366 ms P-R-T Axes : 039 005 055 degrees QTc Int : 459 ms Normal sinus rhythm Normal ECG Confirmed by Lloyd Neves ([id number]), editor greeting card RADHA PHILLIPS ([id number]) on 09/08/2024 11:24:30 AM Referred By: Confirmed By:Lloyd Neves
--- NOTE | 2024-09-06 10:21 | EX.ED.DYSGE1 ---
HPI History of Present Illness Chief Complaint: General Illness Detail of Chief Complaint: Not feeling well Informant: patient Narrative Narrative: Patient presents to the emergency department complaint of not feeling well since yesterday. Patient thought maybe she was coming down with a cold that she had a low bit of a runny nose. Patient also has history of nephrostomy tubes and has had history of sepsis in the past. She denies any fevers or chills or sweats. She denies abdominal pain. Patient states that she ate some pizza a few nights ago and had diarrhea for about a day but then that resolved. She denies any chest pain or shortness of breath. Patient has her nephrostomy tubes changed about every 6 weeks and she is due again in September 29. [facility] Medical History Acute diarrhea LULY (acute kidney injury) Asthma Dunbar's palsy Bilateral hydronephrosis Bladder disease Blood disorder Bruising Cancer Cardiology follow-up encounter Cervical cancer Chronic kidney disease Chronic renal failure, stage 4 (severe) Dialysis patient Easy bruising Essential hypertension Former smoker Gout High anion gap metabolic acidosis History of biliary stent insertion History of cervical cancer History of Clostridium difficile infection History of COVID-19 History of irregular heartbeat History of renal disease Hx of cataract Hx of echocardiogram Hx of vertigo Hyperlipidemia Hypertension Hypokalemia Hyponatremia Kidney disease Leg cramps Leukocytosis Lymphocytosis Mild intermittent asthma MRSA infection Near syncope Problem with dialysis access Status post placement of implantable loop recorder (~03/29/20) Thyroid disease Urinary incontinence UTI (urinary tract infection) Wears dentures Home Medications ?Medication ?Instructions ?Recorded ?Last Taken ?Type albuterol sulfate 90 mcg/actuation 2 puff inhalation Q6H PRN Sob &/Or 07/25/18 11/10/23 History aerosol inhaler (Ventolin HFA) Wheezing potassium chloride 20 mEq 20 meq PO DAILY supplement 09/01/20 02/14/24 10:00 History tablet,extended release(part/cryst) amlodipine 2.5 mg tablet 2.5 mg PO DAILY BP #90 tabs 08/12/21 02/14/24 10:00 Rx ipratropium bromide 42 mcg (0.06 2 spray intranasal DAILY allergie 11/23/21 02/14/24 10:00 History %) nasal spray pantoprazole 40 mg tablet,delayed 40 mg PO DAILY GERD 03/27/23 02/14/24 10:00 History release levothyroxine 25 mcg tablet 25 mcg PO DAILY thyroid 02/14/24 02/14/24 07:00 History Allergy/AdvReac Type Severity Reaction Status Date / Time clindamycin Allergy Severe unsure of Verified 09/06/24 09:57 reaction pravastatin Allergy Severe Chest Verified 09/06/24 09:57 tightness procaine (From Novocain) Allergy Severe NEEDS Verified 09/06/24 09:57 FOLLOW-UP sulfamethoxazole (From Allergy Severe Shortness Verified 09/06/24 09:57 Bactrim) of breath trimethoprim (From Bactrim) Allergy Severe Shortness Verified 09/06/24 09:57 of breath levofloxacin (From Levaquin) Allergy UNSURE OF Verified 09/06/24 09:57 REACTION [id number] Reductase Allergy Anaphylaxis Verified 09/06/24 09:57 Inhibitor methylprednisolone AdvReac Severe Pain in Verified 09/06/24 09:57 joints Family History Father , 32 yrs old CAD (coronary artery disease) History of coronary artery bypass surgery Mother Cancer Lung CA, Hx tobacco use. Surgical History History of arteriovenostomy for renal dialysis (~09/2021) History of cardiac catheterization (~01/08/18) History of cardiac catheterization History of cholecystectomy History of excision of mass History of hysterectomy History of loop recorder history of radium implant Hx of cystoscopy S/P arteriovenous (AV) fistula creation Social History household members: spouse and children number of children: 6 current occupational status: retired history of recent travel: No Smoking Status: Former smoker second hand exposure: No alcohol intake: never substance use type: does not use what type of physical activity do you participate in: walking saurabh/restorationist: Non-Amish/Independent seatbelt use: always do you feel safe at home: Yes additional social history: - Fernando PALOMO ROS ED Review of Systems ROS Unobtainable: other Constitutional Constitutional ED: Reports lethargy; Denies chills, fever(s), sweats or weight loss Eyes Eyes: Denies blurry vision, change in vision or diplopia ENT ENT ED: Reports rhinorrhea; Denies sore throat Cardiovascular Cardiovascular: Denies chest pain, orthopnea or racing heartbeat Respiratory/Chest Respiratory/Chest: Denies cough, dyspnea, dyspnea on exertion, orthopnea or sputum Gastrointestinal Gastrointestinal: Denies abdominal pain, diarrhea, nausea or vomiting Genitourinary Genitourinary ED: Denies dysuria, hematuria or urinary frequency Musculoskeletal Musculoskeletal: Denies arthralgias, back pain, myalgias or neck pain Integumentary Denies abscess, Abrasions or rash Neurologic Neurologic: Denies headache(s) or weakness Psychiatric Psychiatric: Denies anxiety, depression or suicidal thoughts Endocrine Endocrinology: Denies polydipsia, polyphagia or polyuria Hematologic/Lymphatic Hematologic/Lymphatic: Denies easy bleeding, easy bruising or lymphadenopathy Allergic/Immunologic Allergic/Immunologic ED: Denies mouth swelling, tongue swelling or urticaria EXAM Physical Exam Const Vital Signs: 09/06/24 09:37 09/06/24 09:39 09/06/24 09:53 Temperature 98.4 F 98.4 F Temperature Source Oral Oral Pulse Rate 113 H 97 Respiratory Rate 18 17 Respiratory Effort Normal Respiratory Pattern Normal Blood Pressure 102/84 H 138/75 H Blood Pressure Mean 90 96 Pulse Ox 97 96 Oxygen Delivery Method Room Air Room Air 09/06/24 10:39 09/06/24 11:00 09/06/24 11:37 Temperature 98.3 F 98.3 F Temperature Source Oral Oral Pulse Rate 95 90 87 Respiratory Rate 20 H 20 H 22 H Respiratory Effort Respiratory Pattern Blood Pressure 136/76 H 108/62 108/62 Blood Pressure Mean 96 77 77 Pulse Ox 96 96 95 Oxygen Delivery Method Room Air Room Air 09/06/24 13:33 Temperature 98.6 F Temperature Source Oral Pulse Rate 85 Respiratory Rate 20 H Respiratory Effort Respiratory Pattern Blood Pressure 128/63 H Blood Pressure Mean 84 Pulse Ox 95 Oxygen Delivery Method Room Air Positive well nourished and well developed General Appearance ED: well developed and NAD HEENT Reports TM's clear and moist mucous membranes normocephalic and atraumatic; Negative for trauma or tenderness Tympanic Membrane ED: Yes TM's clear Eyes PERRL and EOMs intact bilaterally General Eye ED: Negative for pale conjunctiva or scleral icterus Neck no lymphadenopathy, supple and no JVD General: Negative for tenderness Chest Wall inspection of chest normal and palpation of chest normal Chest: Negative for tenderness Resp normal respiratory effort and clear to auscultation bilaterally Effort and Inspection: Negative for respiratory distress or pain with movement Auscultation: Negative for rhonchi, wheezes or diminished lung sounds Cardio regular rate, regular rhythm, S1 normal heart sound, S2 normal heart sound and no murmurs Peripheral Pulses: pulses 2+ throughout GI normal to inspection, nondistended, normoactive bowel sounds, soft to palpation, non-tender, non-distended and no masses Back/Spine no CVA tenderness and no thoracic nor lumbar tenderness Extremity normal to inspection General Extremety ED: Negative for edema General Extremity: Negative for edema Neuro oriented x3, CN's II-XII intact bilaterally, no sensory deficits noted and gait normal Sensorium / Orientation: awake, alert, oriented to person, oriented to place and oriented to time Motor Exam: strength 5/5 throughout and strength abnormal Psych mental status grossly normal Skin no rashes or lesions noted and no wounds MDM MDM MDM Narrative Medical decision making narrative: Patient with complaints of not feeling well and rather vague symptoms that she is experienced in the past when she has had sepsis. She has bilateral nephrostomy tubes. She has been getting output from both kidneys. She had a slight runny nose. Denies cough or fever. IV line established. Blood cultures ordered. CBC with differential count of 13.2 with hemoglobin 13 and platelet count of 28.8. Chemistries unremarkable. BUN was 24 and creatinine 2.12 with a lactate of 1.1. Urinalysis positive for nitrites as well as 500 leukocyte esterase and 10-25 WBCs and +3 bacteria. Urine culture sent. Patient was started on Rocephin 1 g IV. COVID flu and RSV testing was negative. 1 view chest x-ray unremarkable. Patient had a CT scan of the abdomen pelvis that was read by radiology as bilateral nephrostomy tubes with severe right hydronephrosis and hydroureter without definitive distal ureteral stone. Patient had mild left perinephric stranding with pockets of air in the left upper pole of the left kidney likely secondary to nephrostomy tube infectious process cannot be excluded. There is also thickening of the bladder. Discussed results with patient. This time she gets her nephrostomy care at [facility] in [place]. Recommended transfer to their facility for definitive care. Discussed case with Dr. Brown who accepted transfer of care to their facility. Lab Data Attestation: I reviewed the patient's lab results. Labs: Laboratory Results - last 24 hr 09/06/24 09/06/24 10:02 10:52 WBC 13.2 H RBC 4.52 Hgb 13.0 Hct 41.6 MCV 92.0 MCH 28.8 MCHC 31.3 L RDW Std Deviation 46.6 H RDW Coeff of [place]wey 13.9 Plt Count 402 MPV 10.1 Immature Gran % (Auto) 0.400 Neut % (Auto) 49.2 Lymph % (Auto) 42.5 H [place] % (Auto) 6.5 Eos % (Auto) 1.0 Baso % (Auto) 0.4 Absolute Neuts (auto) 6.5 Absolute Lymphs (auto) 5.63 H Nucleated RBC % 0 Differential Comment SCANNED Reactive Lymphocytes 1+ Sodium 138 Potassium 4.2 Chloride 106 Carbon Dioxide 24.0 Anion Gap 8 BUN 24 H Creatinine 2.12 H Estim Creat Clear Calc 24.20 Est GFR (MDRD) Af Amer 29 L Est GFR (MDRD) Non-Af 24 L BUN/Creatinine Ratio 11.3 Glucose 105 Lactic Acid 1.1 Calcium 9.1 Troponin I High Sens 6 Urine Color Straw Urine Clarity Cloudy Urine pH 7.0 Ur Specific [place] 1.010 Urine Protein 100 H Urine Glucose (UA) Normal Urine Ketones Negative Urine Occult Blood 50 H Urine Nitrite Positive H Urine Bilirubin Negative Urine Urobilinogen Normal Ur Leukocyte Esterase 500 H Urine RBC 0-5 SEEN Urine WBC 10-25 SEEN Ur Squamous Epith Cells 0 SEEN Amorphous Sediment 2+ Urine Bacteria 3+ Urine Mucus 0 SEEN Radiography Diagnostic Testing: Clinical Impression(s) from Imaging Studies Chest X-Ray 09/06/24 10:36 IMPRESSION: No radiographic evidence of acute cardiopulmonary disease. Electronically Signed: Flip Lowry MD at 11:10 EDT , Abdomen/Pelvis CT 09/06/24 10:57 IMPRESSION: 1. Bilateral nephrostomy tubes are seen. 2. Severe right hydronephrosis and hydroureter without definite distal ureteral stone. 3. Mild left perinephric stranding with pockets of air in the upper pole of the left kidney likely secondary to nephrostomy tube. Infectious process cannot be excluded. 4. Thickening of the bladder wall with pockets of air likely due to recent catheterization, otherwise infectious process cannot. 5. Otherwise no focal acute inflammatory process. Electronically Signed: Flip Lowry MD at 12:29 EDT , 1 view chest x-ray obtained interpreted by myself is no evidence of infiltrate or pneumothorax or acute disease process EKG Initial EKG: Attestation: I personally reviewed and interpreted this EKG as follows: Comments: Sinus rhythm with ventricular rate of 96 bpm with no acute ST segment changes Discharge Plan Triage Chief Complaint: General Illness ED Provider: Lexa Hull Dx/Rx/DC Orders Clinical Impression: Urinary tract infection, Leukocytosis, Chronic kidney disease Prescriptions: No Action albuterol sulfate [Ventolin HFA] 90 mcg/actuation HFA aerosol inhaler 2 puff INHALATION Q6H PRN (Reason: Sob &/Or Wheezing) pantoprazole 40 mg tablet,delayed release (DR/EC) 40 mg PO DAILY potassium chloride 20 MEQ tablet,ER particles/crystals 20 meq PO DAILY ipratropium bromide 42 mcg (0.06 %) spray,non-aerosol 2 spray INTRANASAL DAILY levothyroxine 25 mcg tablet 25 mcg PO DAILY amlodipine 2.5 mg tablet 2.5 mg PO DAILY Qty: 90 3RF Primary Care Provider: Gerardo García Chi Referrals: Gerardo García Chi, MD [Primary Care Provider] - Print Language: Burundian Disposition Disposition: DC/Tx to Another Type of HCF
--- NOTE | 2024-09-06 10:36 | RAD_ITS ---
INDICATION: tachycardia EXAMINATION/TECHNIQUE: X-RAY - XR Chest 1 View COMPARISON: Prior study dated: 11/16/2023 FINDINGS: LINES/DEVICES: External loop recorder device overlying the left chest. LUNGS: No consolidation, edema or effusion. No pneumothorax. MEDIASTINUM AND CARDIOVASCULAR STRUCTURES: Cardiac silhouette not enlarged. Central airways and mediastinal contour are unremarkable. BONES AND SOFT TISSUES: Unremarkable. RAD/Chest 1 View (Portable) IMPRESSION: No radiographic evidence of acute cardiopulmonary disease. Electronically Signed: Flip Lowry MD at 11:10 EDT ,
[2024-09-06] MEDS: 0.9% Normal Saline (1000mL) 1,000 ML 1000 ML IV (10:38)
[2024-09-06 10:39] LABS: Absolute Lymphocyte Count 5.63 X10^3/uL (0.83-4.51); Absolute Neutrophil Count 6.5 X10^3/uL (2.0-7.7); Basophil# 0.05 X10^3/uL; Basophil% 0.4 % (0-1); Eosinophil# 0.13 X10^3/uL; Hematocrit 41.6 % (37-47); Lymphocyte # 5.63 X10^3/ul (0.83-4.51); Lymphocyte % 42.5 % (19-41); Mean Corp Hgb Conc 31.3 g/dL (32-36); Mean Corpuscular Hgb 28.8 pg (27.0-32.0); Mean Platelet Vol. 10.1 fl (6.2-12.0); Monocyte# 0.86 X10^3/uL; Monocyte% 6.5 % (0-10); NRBC Flagged by Analyzer 0 % (0-5); Neutrophil # 6.52 X10^3/uL (2.7-7.7); Neutrophil % 49.2 % (47-70); POSITIVE DIFFERENTIAL YES; POSITIVE MORPHOLOGY YES; Platelet Count 402 K/mm3 (150-450); RBC Distribution Width CV 13.9 % (11.6-14.6); RBC Distribution Width SD 46.6 fl (35.1-43.9); Red Blood Count 4.52 M/mm3 (4.2-5.4); White Blood Count 13.2 K/mm3 (4.4-11.0)
[2024-09-06 10:42] LABS: Differential Indicated SCAN CRITERIA MET
[2024-09-06 10:54] LABS: Anion Gap 8 (5-15); BUN 24 mg/dL (7-18); BUN/Creat Ratio 11.3 RATIO (10-20); Calcium,Total 9.1 mg/dL (8.5-10.1); Chloride 106 mmol/L (98-107); Creatinine, Serum 2.12 mg/dL (0.55-1.02); EST Glomerular Filtration Rate 24 mL/min (>60); Est Glom Filt Rate - Afr Amer 29 mL/min (>60); Glucose 105 mg/dL (74-106); Potassium 4.2 mmol/L (3.5-5.1); Sodium Level 138 mmol/L (136-145); Troponin-I HS 6 pg/mL (3.0-54.0)
--- NOTE | 2024-09-06 10:57 | CT_ITS ---
INDICATION: abdominal pain, nephrostomy tubes EXAMINATION: CT ABDOMEN AND PELVIS WITHOUT CONTRAST - CT Abdomen And Pelvis W/O Contrast Injection TECHNIQUE: Helically acquired images were obtained of the abdomen and pelvis without oral or IV contrast. The protocol utilizes one or more of the following dose reduction techniques: automated exposure control, adjustment of mA and/or kV according to patient size,and/or use of iterative reconstruction technique. IV Contrast dosage and agent: None. Oral contrast: None. RADIATION DOSAGE (If Supplied By Facility): CTDIvol = ( 7.89 ) mGy, DLP = ( 384.37 ) mGycm COMPARISON: Prior study dated: 03/31/2019 FINDINGS: LOWER CHEST: Mild atelectasis or scarring right lower lung. No cardiomegaly or pericardial effusion. LIVER: Homogeneous. No focal lesion is seen without contrast. GALLBLADDER AND BILIARY TREE: Not visualized which may be contracted or surgically removed . No intra- or extrahepatic biliary ductal dilation. PANCREAS: No focal cystic or solid mass. SPLEEN: Normal size without focal cystic or solid mass. ADRENAL GLANDS: No nodules. KIDNEYS AND URETERS: Bilateral percutaneous nephrostomy tube are seen. Severe right hydronephrosis markedly worse than the previous exam. No significant left hydronephrosis. Pockets of air in the upper pole of the left kidney probably secondary to nephrostomy tube. Bilateral hydroureters markedly worse on the right side. PERITONEUM: No ascites or free air. No other fluid collection. BOWEL: No evidence of acute appendicitis. No stomach or bowel distension. No focal inflammatory change. LYMPH NODES: Enlarged left aortic retroperitoneal nodes essentially unchanged. VESSELS: Aorta is non-dilated. URINARY BLADDER: Thickening of the bladder wall probably due to underdistention. Pockets of air within the bladder likely due to recent catheterization, otherwise infectious process cannot be excluded. REPRODUCTIVE ORGANS: No pelvic masses. ABDOMINAL WALL: No discrete abdominal or pelvic wall hernia. BONES: No lytic or blastic abnormality. CT/Abdomen/Pelvis without Cont IMPRESSION: 1. Bilateral nephrostomy tubes are seen. 2. Severe right hydronephrosis and hydroureter without definite distal ureteral stone. 3. Mild left perinephric stranding with pockets of air in the upper pole of the left kidney likely secondary to nephrostomy tube. Infectious process cannot be excluded. 4. Thickening of the bladder wall with pockets of air likely due to recent catheterization, otherwise infectious process cannot. 5. Otherwise no focal acute inflammatory process. Electronically Signed: Flip Lowry MD at 12:29 EDT ,
[2024-09-06 10:59] LABS: Lactic Acid 1.1 mmol/L (0.4-1.9)
[2024-09-06 11:01] LABS: Mucous, Urine 0 SEEN /hpf (<or=2+); Squamous Epithelial Cells - UA 0 SEEN /hpf (5-10)
[2024-09-06 11:04] LABS: Color, Urine Straw (Yellow); Glucose, Dipstick Normal (Normal); Ketone-Dipstick Negative (Negative); Leukocyte Esterase-Dipstick 500 /ul (Negative); Nitrite-Dipstick Positive (Negative); Occult Blood-Urine 50 /ul (Negative); Protein-Dipstick 100 mg/dl (Negative); Urine Bilirubin Dipstick Negative (Negative); Urine Clarity Cloudy (Clear); Urine Urobilinogen Normal (Normal)
[2024-09-06 11:07] LABS: Differential Comment SCANNED; Reactive Lymphocyte 1+
[2024-09-06 11:14] LABS: Red Blood Cells-Urine 0-5 SEEN /hpf (0-5); White Blood Cells 10-25 SEEN /hpf (0-5)
[2024-09-06 11:15] LABS: Amorphous Sediment 2+; Bacteria 3+ /hpf (None Seen)
[2024-09-06] MEDS: Ceftriaxone 1 GM/50 ML BAG IV (11:57)
== END 2024-09-06 17:42 | disposition other institution (70) ==
PROVIDERS: Emergency Provider Emergency Medicine; PCP Family Medicine Geriatric Medicine; Visit Provider Emergency Medicine
DX: N39.0 Urinary tract infection, site not specified (principal); Z93.6 Other artificial openings of urinary tract status; N18.4 Chronic kidney disease, stage 4 (severe); N13.30 Unspecified hydronephrosis; D72.829 Elevated white blood cell count, unspecified; J34.89 Other specified disorders of nose and nasal sinuses; I12.9 Hypertensive chronic kidney disease with stage 1 through stage 4 chronic kidney disease, or unspecified chronic kidney disease; E07.9 Disorder of thyroid, unspecified; J45.20 Mild intermittent asthma, uncomplicated; Z99.2 Dependence on renal dialysis; Z88.1 Allergy status to other antibiotic agents; Z86.19 Personal history of other infectious and parasitic diseases; Z90.49 Acquired absence of other specified parts of digestive tract; Z86.14 Personal history of Methicillin resistant Staphylococcus aureus infection; Z85.41 Personal history of malignant neoplasm of cervix uteri; Z87.440 Personal history of urinary (tract) infections; Z79.890 Hormone replacement therapy; Z87.891 Personal history of nicotine dependence
CPT/HCPCS: 71045; 74176; 80048; 81001; 83605; 84484; 85025; 87086; 87088; 87631; 93005; 96361; 96365; 99285; J7030; J7050; A4216

== ENCOUNTER → 2024-09-19 | Outpatient (CLI) | payer MEDICARE, SELFPAY ==
[2024-09-19 11:16] LABS: Absolute Lymphocyte Count 5.51 X10^3/uL (0.83-4.51); Absolute Neutrophil Count 5.8 X10^3/uL (2.0-7.7); Basophil# 0.07 X10^3/uL; Basophil% 0.6 % (0-1); Eosinophil# 0.16 X10^3/uL; Eosinophils% 1.3 % (0-5); Hemoglobin 13.4 g/dL (12.0-15.0); Lymphocyte # 5.51 X10^3/ul (0.83-4.51); Mean Corp Hgb Conc 31.2 g/dL (32-36); Mean Corpuscular Hgb 28.5 pg (27.0-32.0); Mean Corpuscular Volume 91.5 fL (81-99); Mean Platelet Vol. 9.6 fl (6.2-12.0); Monocyte% 5.7 % (0-10); NRBC Flagged by Analyzer 0 % (0-5); Neutrophil # 5.78 X10^3/uL (2.7-7.7); Neutrophil % 47.2 % (47-70); POSITIVE DIFFERENTIAL YES; Platelet Count 368 K/mm3 (150-450); RBC Distribution Width CV 14.3 % (11.6-14.6); RBC Distribution Width SD 48.1 fl (35.1-43.9); White Blood Count 12.2 K/mm3 (4.4-11.0)
[2024-09-19 11:32] LABS: Albumin, Serum 2.9 g/dL (3.2-5.0); BUN 22 mg/dL (7-18); BUN/Creat Ratio 11.2 RATIO (10-20); Calcium,Total 8.6 mg/dL (8.5-10.1); Chloride 106 mmol/L (98-107); Creatinine, Serum 1.97 mg/dL (0.55-1.02); EST Glomerular Filtration Rate 27 mL/min (>60); Est Glom Filt Rate - Afr Amer 32 mL/min (>60); Glucose 97 mg/dL (74-106); Potassium 4.3 mmol/L (3.5-5.1); Sodium Level 138 mmol/L (136-145)
[2024-09-19 11:35] LABS: Hemoglobin A1c 5.4 % (3.8-5.6)
== END | disposition home or self-care (01) ==
LOC: POLAB3 11:00
PROVIDERS: Internal Medicine Nephrology; PCP Family Medicine Geriatric Medicine; Referring Provider Family Medicine Geriatric Medicine; Visit Provider Family Medicine Geriatric Medicine
DX: N17.9 Acute kidney failure, unspecified (principal)
CPT/HCPCS: 36415; 80069; 83036; 85025

== ENCOUNTER → 2024-10-27 | Outpatient (CLI) | payer MEDICARE, SELFPAY ==
[2024-10-27 15:06] LABS: Absolute Lymphocyte Count 3.96 X10^3/uL (0.83-4.51); Absolute Neutrophil Count 5.5 X10^3/uL (2.0-7.7); Basophil# 0.05 X10^3/uL; Basophil% 0.5 % (0-1); Eosinophils% 0.9 % (0-5); Hematocrit 41.2 % (37-47); Hemoglobin 13.2 g/dL (12.0-15.0); Lymphocyte # 3.96 X10^3/ul (0.83-4.51); Lymphocyte % 36.8 % (19-41); Mean Corpuscular Hgb 29.2 pg (27.0-32.0); Mean Corpuscular Volume 91.2 fL (81-99); Monocyte# 1.07 X10^3/uL; Monocyte% 9.9 % (0-10); NRBC Flagged by Analyzer 0 % (0-5); Neutrophil # 5.54 X10^3/uL (2.7-7.7); Neutrophil % 51.4 % (47-70); Platelet Count 343 K/mm3 (150-450); RBC Distribution Width CV 14.6 % (11.6-14.6); RBC Distribution Width SD 48.8 fl (35.1-43.9); Red Blood Count 4.52 M/mm3 (4.2-5.4); White Blood Count 10.8 K/mm3 (4.4-11.0)
[2024-10-27 15:39] LABS: Vitamin D,25 Hydroxy 29.3 ng/mL
[2024-10-27 16:13] LABS: ALB/GLOB Ratio 0.5 RATIO (0.9-2.4); AST(SGOT) 15 U/L (15-37); Alanine Aminotransfer ALT/SGPT 11 U/L (13-56); Albumin, Serum 2.8 g/dL (3.2-5.0); Alkaline Phosphatase 130 U/L (45-117); Anion Gap 9 (5-15); BUN 20 mg/dL (7-18); Chloride 103 mmol/L (98-107); Cholesterol 187 mg/dL (200); Creatinine, Serum 2.01 mg/dL (0.55-1.02); EST Glomerular Filtration Rate 26 mL/min (>60); Est Glom Filt Rate - Afr Amer 31 mL/min (>60); Globulin 5.8 g/dL (2.2-4.2); Glucose 97 mg/dL (74-106); High Density Lipoprotein 47 mg/dL; Potassium 4.2 mmol/L (3.5-5.1); Protein, Total 8.6 g/dL (6.4-8.2); Sodium Level 134 mmol/L (136-145); Triglycerides 103 mg/dL; Very Low Density Lipoprotein 21 mg/dL (5-40)
== END | disposition home or self-care (01) ==
LOC: POLAB3 14:50
PROVIDERS: PCP Family Medicine Geriatric Medicine; Visit Provider Family Medicine Geriatric Medicine
DX: I10 Essential (primary) hypertension (principal); E78.5 Hyperlipidemia, unspecified; E03.9 Hypothyroidism, unspecified; R68.83 Chills (without fever); E55.9 Vitamin D deficiency, unspecified
CPT/HCPCS: 36415; 80053; 80061; 82306; 84443; 85025; 87631

== ENCOUNTER → 2024-11-03 | Outpatient (CLI) | payer MEDICARE, SELFPAY | END | disposition home or self-care (01) | LOC: POLAB3 11:59 | PROVIDERS: PCP Family Medicine Geriatric Medicine; Visit Provider Family Medicine Geriatric Medicine | DX: R68.83 Chills (without fever) (principal) | CPT/HCPCS: 87631 ==

== ENCOUNTER → 2025-01-07 | Outpatient (CLI) | payer MEDICARE, SELFPAY ==
[2025-01-07 11:16] LABS: Absolute Lymphocyte Count 5.09 X10^3/uL (0.83-4.51); Absolute Neutrophil Count 5.7 X10^3/uL (2.0-7.7); Basophil# 0.08 X10^3/uL; Basophil% 0.7 % (0-1); Eosinophil# 0.14 X10^3/uL; Eosinophils% 1.2 % (0-5); Hematocrit 43.6 % (37-47); Hemoglobin 14.1 g/dL (12.0-15.0); Lymphocyte # 5.09 X10^3/ul (0.83-4.51); Lymphocyte % 42.9 % (19-41); Mean Corp Hgb Conc 32.3 g/dL (32-36); Mean Corpuscular Hgb 29.1 pg (27.0-32.0); Mean Corpuscular Volume 90.1 fL (81-99); Mean Platelet Vol. 9.8 fl (6.2-12.0); Monocyte# 0.81 X10^3/uL; Monocyte% 6.8 % (0-10); NRBC Flagged by Analyzer 0 % (0-5); Neutrophil # 5.71 X10^3/uL (2.7-7.7); Neutrophil % 48.1 % (47-70); POSITIVE DIFFERENTIAL YES; Platelet Count 364 K/mm3 (150-450); RBC Distribution Width CV 13.5 % (11.6-14.6); RBC Distribution Width SD 44.8 fl (35.1-43.9); Red Blood Count 4.84 M/mm3 (4.2-5.4); White Blood Count 11.9 K/mm3 (4.4-11.0)
[2025-01-07 11:20] LABS: Differential Indicated SCAN CRITERIA MET
[2025-01-07 11:25] LABS: Protein, Urine (Random) 158.9 mg/dL (<11.9); Protein:Creat Ratio 1750 mg/g CRE (0-200)
[2025-01-07 11:38] LABS: BUN 24 mg/dL (7-18); BUN/Creat Ratio 11.3 RATIO (10-20); Calcium,Total 8.9 mg/dL (8.5-10.1); Chloride 106 mmol/L (98-107); Creatinine, Serum 2.12 mg/dL (0.55-1.02); EST Glomerular Filtration Rate 24 mL/min (>60); Est Glom Filt Rate - Afr Amer 29 mL/min (>60); Glucose 106 mg/dL (74-106); Phosphorus 3.8 mg/dL (2.5-4.9); Potassium 4.4 mmol/L (3.5-5.1); Sodium Level 137 mmol/L (136-145)
[2025-01-07 11:39] LABS: Reactive Lymphocyte 1+
[2025-01-07 13:59] LABS: Hemoglobin A1c 5.6 % (3.8-5.6)
== END | disposition home or self-care (01) ==
LOC: LAB 10:42
PROVIDERS: PCP Family Medicine Geriatric Medicine; Referring Provider Internal Medicine Nephrology; Visit Provider Internal Medicine Nephrology
DX: N17.9 Acute kidney failure, unspecified (principal)
CPT/HCPCS: 36415; 80069; 82570; 83036; 84156; 85025

== ENCOUNTER → 2025-02-02 | Outpatient (CLI) | payer MEDICARE, SELFPAY ==
[2025-02-02 10:58] LABS: Absolute Lymphocyte Count 4.84 X10^3/uL (0.83-4.51); Absolute Neutrophil Count 4.1 X10^3/uL (2.0-7.7); Basophil# 0.06 X10^3/uL; Basophil% 0.6 % (0-1); Eosinophil# 0.13 X10^3/uL; Eosinophils% 1.3 % (0-5); Hematocrit 42.4 % (37-47); Hemoglobin 13.2 g/dL (12.0-15.0); Lymphocyte # 4.84 X10^3/ul (0.83-4.51); Lymphocyte % 48.9 % (19-41); Mean Corp Hgb Conc 31.1 g/dL (32-36); Mean Corpuscular Hgb 28.4 pg (27.0-32.0); Mean Corpuscular Volume 91.4 fL (81-99); Monocyte# 0.79 X10^3/uL; NRBC Flagged by Analyzer 0 % (0-5); Neutrophil # 4.05 X10^3/uL (2.7-7.7); Platelet Count 353 K/mm3 (150-450); RBC Distribution Width CV 13.4 % (11.6-14.6); RBC Distribution Width SD 45.4 fl (35.1-43.9); Red Blood Count 4.64 M/mm3 (4.2-5.4); White Blood Count 9.9 K/mm3 (4.4-11.0)
[2025-02-02 13:39] LABS: Vitamin D,25 Hydroxy 28.9 ng/mL (30-100)
[2025-02-02 18:35] LABS: Cholesterol 186 mg/dL (<=200); High Density Lipoprotein 41 mg/dL; Low Density Lipoprotein Calc. 120 mg/dL; Triglycerides 125 mg/dL; Very Low Density Lipoprotein 25 mg/dL (5-40); cholesterol:hdl ratio screen 4.54
[2025-02-02 18:38] LABS: ALB/GLOB Ratio 0.8 RATIO (0.9-2.4); AST(SGOT) 18 U/L (<=31); Alanine Aminotransfer ALT/SGPT 7 U/L (<=34); Albumin, Serum 3.6 g/dL (3.4-4.8); Alkaline Phosphatase 129 U/L (35-104); Anion Gap 12 (5-15); BUN 19 mg/dL (4-19); BUN/Creat Ratio 11.1 RATIO (10-20); Carbon Dioxide 22.9 mmol/L (21.0-32.0); Chloride 104 mmol/L (98-108); Creatinine, Serum 1.66 mg/dL (0.70-1.20); EST Glomerular Filtration Rate 33 (>60); Globulin 4.4 g/dL (2.2-4.2); Glucose 112 mg/dL (70-99); Potassium 4.2 mmol/L (3.3-5.1); Sodium Level 139 mmol/L (133-145); Total Bilirubin 0.42 mg/dL (0.00-1.30)
== END | disposition home or self-care (01) ==
LOC: POLAB3 10:44
PROVIDERS: PCP Family Medicine Geriatric Medicine; Visit Provider Family Medicine Geriatric Medicine
DX: I10 Essential (primary) hypertension (principal); E55.9 Vitamin D deficiency, unspecified; E78.5 Hyperlipidemia, unspecified
CPT/HCPCS: 36415; 80053; 80061; 82306; 84443; 85025

== ENCOUNTER → 2025-03-20 | Outpatient (CLI) | payer MEDICARE, SELFPAY | END | disposition home or self-care (01) | LOC: LABSPEC 13:25 | PROVIDERS: PCP Family Medicine Geriatric Medicine; Referring Provider Family Medicine Geriatric Medicine; Visit Provider Family Medicine Geriatric Medicine | DX: R05.9 Cough, unspecified (principal); R06.2 Wheezing; R50.9 Fever, unspecified | CPT/HCPCS: 87631 ==

== ENCOUNTER → 2025-04-15 | Outpatient (CLI) | payer MEDICARE, SELFPAY ==
[2025-04-15 10:37] LABS: PTHIN 86 pg/mL (11-61)
[2025-04-15 11:01] LABS: Phosphorus 3.9 mg/dL (2.7-4.5)
[2025-04-15 11:21] LABS: Anion Gap 11 (5-15); BUN 19 mg/dL (4-19); BUN/Creat Ratio 9.6 RATIO (10-20); Calcium,Total 9.3 mg/dL (7.6-11.0); Carbon Dioxide 25.3 mmol/L (21.0-32.0); Chloride 103 mmol/L (98-108); Creatinine, Serum 1.95 mg/dL (0.70-1.20); EST Glomerular Filtration Rate 27 (>60); Glucose 104 mg/dL (70-99); Potassium 4.8 mmol/L (3.3-5.1); Sodium Level 139 mmol/L (133-145)
[2025-04-15 11:35] LABS: Albumin, Serum 3.7 g/dL (3.4-4.8)
== END | disposition home or self-care (01) ==
LOC: LAB 08:48
PROVIDERS: PCP Family Medicine Geriatric Medicine; Referring Provider Internal Medicine Nephrology; Visit Provider Internal Medicine Nephrology
DX: N18.4 Chronic kidney disease, stage 4 (severe) (principal)
CPT/HCPCS: 36415; 80069; 83970

== ENCOUNTER → 2025-07-06 | Outpatient (CLI) | payer MEDICARE, SELFPAY ==
[2025-07-06 11:54] LABS: Mucous, Urine 0 SEEN /hpf (<or=2+); Red Blood Cells-Urine 0 SEEN /hpf (0-5); Squamous Epithelial Cells - UA 0 SEEN /hpf (5-10)
[2025-07-06 13:00] LABS: Hematocrit 41.3 % (37-47); Hemoglobin 13.4 g/dL (12.0-15.0); Immature Granulocytes Count 0.070 X10^3/uL (0.0-0.0); Mean Corp Hgb Conc 32.4 g/dL (32-36); Mean Corpuscular Volume 87.9 fL (81-99); Mean Platelet Vol. 11.0 fl (6.2-12.0); NRBC Flagged by Analyzer 0 % (0-5); Platelet Count 304 K/mm3 (150-450); RBC Distribution Width CV 14.2 % (11.6-14.6); RBC Distribution Width SD 45.7 fl (35.1-43.9); Red Blood Count 4.70 M/mm3 (4.2-5.4); White Blood Count 11.5 K/mm3 (4.4-11.0)
[2025-07-06 13:04] LABS: Color, Urine Yellow (Yellow); Glucose, Dipstick Normal (Normal); Ketone-Dipstick Negative (Negative); Leukocyte Esterase-Dipstick 500 /ul (Negative); Nitrite-Dipstick Negative (Negative); Occult Blood-Urine 50 /ul (Negative); Protein-Dipstick 30 mg/dl (Negative); Specific Gravity, Urine 1.005 (1.002-1.030); Urine Bilirubin Dipstick Negative (Negative)
[2025-07-06 13:26] LABS: Transitional Epithelial - Ur 0-5 SEEN /hpf (0-5)
[2025-07-06 13:31] LABS: Anion Gap 13 (5-15); BUN 16 mg/dL (4-19); BUN/Creat Ratio 9.0 RATIO (10-20); CRP 26.70 mg/L (0.0-3.0); Calcium,Total 8.5 mg/dL (7.6-11.0); Carbon Dioxide 22.2 mmol/L (21.0-32.0); Chloride 104 mmol/L (98-108); Glucose 82 mg/dL (70-99); Potassium 4.2 mmol/L (3.3-5.1)
[2025-07-06 19:57] LABS: Xtra Tube Kwok EXTRA TUBE
== END | disposition home or self-care (01) ==
LOC: POLAB3 11:52
PROVIDERS: PCP Family Medicine Geriatric Medicine; Visit Provider Family Medicine Geriatric Medicine
DX: I10 Essential (primary) hypertension (principal); E78.5 Hyperlipidemia, unspecified; R30.0 Dysuria
CPT/HCPCS: 36415; 80048; 81001; 85025; 86140; 87077; 87086; 87088

== ENCOUNTER → 2025-08-03 | Outpatient (CLI) | payer MEDICARE, SELFPAY ==
[2025-08-03 10:58] LABS: Hematocrit 40.6 % (37-47); Hemoglobin 13.2 g/dL (12.0-15.0); Immature Granulocytes Count 0.030 X10^3/uL (0.0-0.0); Mean Corp Hgb Conc 32.5 g/dL (32-36); Mean Corpuscular Volume 85.8 fL (81-99); Mean Platelet Vol. 10.0 fl (6.2-12.0); NRBC Flagged by Analyzer 0 % (0-5); Platelet Count 330 K/mm3 (150-450); RBC Distribution Width CV 14.3 % (11.6-14.6); RBC Distribution Width SD 44.7 fl (35.1-43.9); Red Blood Count 4.73 M/mm3 (4.2-5.4); White Blood Count 9.1 K/mm3 (4.4-11.0)
[2025-08-03 12:03] LABS: AST(SGOT) 18 U/L (<=31); Alanine Aminotransfer ALT/SGPT 8 U/L (<=34); Albumin, Serum 3.6 g/dL (3.4-4.8); Alkaline Phosphatase 151 U/L (35-104); Anion Gap 12 (5-15); BUN 20 mg/dL (4-19); BUN/Creat Ratio 10.3 RATIO (10-20); Calcium,Total 8.6 mg/dL (7.6-11.0); Carbon Dioxide 22.8 mmol/L (21.0-32.0); Chloride 105 mmol/L (98-108); Cholesterol 178 mg/dL (<=200); Globulin 4.2 g/dL (2.2-4.2); Glucose 108 mg/dL (70-99); Low Density Lipoprotein Calc. 117 mg/dL; Potassium 4.2 mmol/L (3.3-5.1); Triglycerides 105 mg/dL; Very Low Density Lipoprotein 21 mg/dL (5-40); Vitamin D,25 Hydroxy 26.5 ng/mL (30-100); cholesterol:hdl ratio screen 4.42
[2025-08-03 18:43] LABS: Xtra Tube Kwok EXTRA TUBE
== END | disposition home or self-care (01) ==
LOC: POLAB3 10:41
PROVIDERS: PCP Family Medicine Geriatric Medicine; Visit Provider Family Medicine Geriatric Medicine
DX: I10 Essential (primary) hypertension (principal); E78.5 Hyperlipidemia, unspecified; E03.9 Hypothyroidism, unspecified; E55.9 Vitamin D deficiency, unspecified
CPT/HCPCS: 36415; 80053; 80061; 82306; 84443; 85025

== ENCOUNTER → 2025-09-03 | Outpatient (CLI) | payer MEDICARE, SELFPAY | END | disposition home or self-care (01) | LOC: POLAB3 15:21 | PROVIDERS: PCP Family Medicine Geriatric Medicine; Visit Provider Family Medicine Geriatric Medicine | DX: R06.2 Wheezing (principal) | CPT/HCPCS: 36415; 87631 ==

== ENCOUNTER → 2025-09-15 | Outpatient (CLI) | payer MEDICARE, SELFPAY | END | disposition home or self-care (01) | LOC: POLAB3 16:53 | PROVIDERS: PCP Family Medicine Geriatric Medicine; Visit Provider Family Medicine Geriatric Medicine | DX: R06.2 Wheezing (principal) | CPT/HCPCS: 87631 ==

== ENCOUNTER → 2025-09-23 | Outpatient (CLI) | payer MEDICARE, SELFPAY ==
[2025-09-23 11:27] LABS: Hematocrit 44.4 % (37-47); Hemoglobin 14.0 g/dL (12.0-15.0); Mean Corp Hgb Conc 31.5 g/dL (32-36); Mean Corpuscular Volume 89.7 fL (81-99); Mean Platelet Vol. 10.2 fl (6.2-12.0); Platelet Count 328 K/mm3 (150-450); RBC Distribution Width CV 15.8 % (11.6-14.6); RBC Distribution Width SD 51.7 fl (35.1-43.9); Red Blood Count 4.95 M/mm3 (4.2-5.4); White Blood Count 14.9 K/mm3 (4.4-11.0)
[2025-09-23 11:59] LABS: PTHIN 174 pg/mL (11-61)
[2025-09-23 12:00] LABS: Albumin, Serum 3.5 g/dL (3.4-4.8); Anion Gap 12 (5-15); BUN 22 mg/dL (4-19); BUN/Creat Ratio 12.8 RATIO (10-20); Calcium,Total 8.3 mg/dL (7.6-11.0); Carbon Dioxide 26.7 mmol/L (21.0-32.0); Chloride 103 mmol/L (98-108); Glucose 82 mg/dL (70-99); Potassium 4.3 mmol/L (3.3-5.1)
== END | disposition home or self-care (01) ==
LOC: LAB 09:42
PROVIDERS: PCP Family Medicine Geriatric Medicine; Referring Provider Internal Medicine Nephrology; Visit Provider Internal Medicine Nephrology
DX: N18.4 Chronic kidney disease, stage 4 (severe) (principal); D63.8 Anemia in other chronic diseases classified elsewhere; N25.81 Secondary hyperparathyroidism of renal origin
CPT/HCPCS: 36415; 80069; 83970; 85027

== ENCOUNTER 2025-09-24 16:49 | Outpatient (CLI) | payer MEDICARE, SELFPAY ==
--- OUTSIDE RECORDS SUMMARY | 2025-09-24 17:18 | XMS RPT_ITS | CCD ---
Author Organization [facility] Care Team Providers Care City Editor Name Role Phone MARINA MONTANA (YISSEL-C) Unavailable Unavailable MARIOLA PARADA Unavailable Unavailable MAGALY GARCÍA Unavailable Unavailable Dr. Gerardo García Chi Primary Care Provider Dr. Reji Patrick Attending Provider Dr. Reji Patrick Referring Provider Dr. Ky Richter Attending Provider Dr. Ky Richter Referring Provider Dr. Ky Richter Other Provider Dr. Gerardo García Chi Referring Provider DAVION Shay Attending Provider Dr. Gerardo García Chi Primary Care Provider Dr. Gerardo García Chi Primary Care Provider Dr. Gerardo García Chi Referring Provider DAVION Shay Attending Provider Dr. Gerardo García Chi Primary Care Provider Dr. Gerardo García Chi Referring Provider DAVION Shay Attending Provider Dr. Kassy Mitchell Attending Provider Dr. Lexa Calle Emergency Provider Dr. Sammie Ruiz Admit Provider Dr. Sammie Ruiz Attending Provider Dr. Sammie Ruiz Other Provider Em, Dr. Joshua Yu Other Provider Latisha, Dr. Campos Attending Provider [facility] Campos Other Provider Unavailable [facility], Dr. Rubio Attending Provider Ricardo, Dr. Rubio Other Provider Dr. Ky Goddard Other Provider Ricky, Dr. Gerardo Rojas Primary Care Provider Ricky, Dr. Gerardo Rojas Referring Provider DAVION Shay Attending Provider Ricky, Dr. Gerardo Rojas Primary Care Provider Ricky, Dr. Gerardo Rojas Referring Provider Dr. Kassy Mitchell Attending Provider Dr. Lexa Calle Emergency Provider Dr. Sammie Ruiz Admit Provider Dr. Sammie Ruiz Attending Provider Dr. Sammie Ruiz Other Provider Em, Dr. Joshua Yu Other Provider Latisha, Dr. Campos Attending Provider [facility]available [facility] Dr[facility] Campos Other Provider Unavailable [facility], Dr. Rubio Attending Provider Ricardo, Dr. Rubio Other Provider Dr. Ky Goddard Other Provider DAVION Shay Attending Provider Ricky, Dr. Gerardo Rojas Primary Care Provider Ricky, Dr. Gerardo Rojas Referring Provider Ricky, Dr. Gerardo Rojas Primary Care Provider Ricky, Dr. Gerardo Rojas Primary Care Provider Ricky, Dr. Gerardo Rojas Referring Provider DAVION Shay Attending Provider Ricky, Dr. Gerardo Rojas Primary Care Provider Ricky, Dr. Gerardo Rojas Referring Provider DAVION Shay Attending Provider Ricky, Dr. Gerardo Rojas Primary Care Provider Ricky, Dr. Gerardo Rojas Referring Provider DAVION Shay Attending Provider Dr. Brian Mckee Emergency Provider Dr. Holly Echeverria Admit Provider Dr. Holly Echeverria Other Provider Dr. Joshua Strickland Other Provider Dr. Rafa Lofton Attending Provider Dr. Rafa Lofton Other Provider Dr. John Light Attending Provider Dr. John Light Other Provider Dr. Ky Goddard Other Provider Ricky, Dr. Gerardo Rojas Primary Care Provider Dr. Altaf Villa Emergency Provider Dr. Andres Maurer Admit Provider Unavailabl e Dr. Andres Maurer Attending Provider Unavail able Dr. Andres Maurer Other Provider Unavailabl e Dr. Alivia Mcrae Attending Provider [phone] Dr. Alivia Mcrae Other Provider [phone] Ricky, Dr. Gerardo Rojas Primary Care Provider Dr. Brian Mckee Emergency Provider Dr. Holly Echeverria Admit Provider Dr. Holly Echeverria Other Provider Dr. Joshua Strickland Other Provider Dr. Rafa Lofton Attending Provider Dr. Rafa Lofton Other Provider Dr. John Light Attending Provider Dr. John Light Other Provider Dr. Ky Goddard Other Provider Dr. Altaf Villa Emergency Provider [phone] Dr. Andres Maurer Admit Provider Unavailabl e de Evelio, Dr. Campos Attending Provider Unavail able de Evelio, Dr. Campos Other Provider Unavailabl e Clementina, Dr. Alivia Hemphill Attending Provider Clementina, Dr. Alivia Hemphill Other Provider Ricky, Dr. Gerardo Rojas Primary Care Provider Dr. Brian Mckee Emergency Provider Dr. Holly Echeverria Admit Provider Dr. Holly Echeverria Other Provider Dr. Joshua Strickland Other Provider Dr. Rafa Lofton Attending Provider Dr. Rafa Lofton Other Provider Dr. John Light Attending Provider Dr. John Light Other Provider Dr. Ky Goddard Other Provider Dr. Altaf Villa Emergency Provider Dr. Andres Maurer Admit Provider Unavailabl e de Evelio, Dr. Campos Attending Provider Unavail able de Evelio, Dr. Campos Other Provider Unavailabl e Clementina, Dr. Alivia Hemphill Attending Provider Clementina, Dr. Alivia Hemphill Other Provider Ricky, Gerardo Rojas Primary Care Provider Luz Maria Matthews MD Unavailable Dr. [place] Emergency Provider Handy CHRISTIAN, José Manuel Unavailable Handy CHRISTIAN, José Manuel Unavailable Jin nAtonio MD Unavailable [phone] Jin Antonio MD Unavailable G[facility]ARDO [facility]ARC[facility]A [facility] Primary Care Unavailable JOSE L PATEL Referring Unavailable JOSE L PATEL Attending Unavailable JOSE L PATEL Admitting Unavailable Dr. Gerardo García Chi Primary Care Provider Dr. [place] Emergency Provider Dr. Andres Maurer Admit Provider Unavailabl e Maurer, Dr. Campos Other Provider Unavailabl e Dr. Rafa Lofton Attending Provider Dr. Rafa Lofton Other Provider Dr. Altaf Villa Emergency Provider Dr. Andres Maurer Referring Provider Unavail able Dr. Julianna Matthews Attending Provider Dr. Julianna Matthews Other Provider Gerardo García Chi Primary Care Provider Dr. Gerardo García Chi Primary Care Provider Dr. Andres Maurer Admit Provider Unavailabl e Maurer, Dr. Campos Other Provider Unavailabl e Dr. Gerardo García Chi Referring Provider Alexandre DEY, PA-Ozyz Harmon Attending Provider [phone] Ricky CHRISTIAN, Dr. Gerardo Rojas Primary Care Provider [phone] Ricky CHRISTIAN, Dr. Gerardo Rojas Attending Provider Wade CHRISTIAN, Dr. Harrison Attending Provider Wade CHRISTIAN, Dr. Harrison Referring Provider Ricky CHRISTIAN, Dr. Gerardo Rojas Primary Care Provider Ricky CHRISTIAN, Dr. Gerardo Rojas Attending Provider Ricky CHRISTIAN, Dr. Gerardo Rojas Referring Provider Cristina Early Attending Provider Byron NAILS, Dr. Loera Attending Provider Byron NAILS, Dr. Loera Referring Provider Ricky CHRISTIAN, Dr. Gerardo Rojas Primary Care Provider Ricky CHRISTIAN, Dr. Gerardo Rojas Attending Provider Ricky CHRISTIAN, Dr. Gerardo Rojas Referring Provider Ricky CHRISTIAN, Dr. Gerardo Rojas Primary Care Physician Ricky CHRISTIAN, Dr. Gerardo Rojas Attending Physician FAUSTINA, JOHN Admitting Unavailable LEXA CALLE Referring Unavailable RICKY, GERARDO [facility] Primary Care Unavailable CHAYO GLASER Attending Unavailable CHEIKH ARNOLD Consulting Unavailable MIGUEL, GHULAM B Admitting Unavailable MIGUEL, GHULAM B Attending Unavailable RICKY, GERARDO [facility] Primary Care Unavailable PROVIDER, UNKNOWN Admitting Unavailable PROVIDER, UNKNOWN Attending Unavailable RICKY, GERARDO [facility] Primary Care Unavailable JIN ANTONIO Attending Unavailable RICKY, GERARDO [facility] Primary Care Unavailable GHANDOUR, ABED AL HAMID Admitting Unavaila ble GHANDOUR, ABED AL HAMID Attending Unavaila ble RICKY, GERARDO [facility] Primary Care Unavailable RICKY, GERARDO [facility] Primary Care Unavailable JOHN WEEMS Admitting Unavailable SONAM CERON Attending Unavailable JD MCMILLAN Consulting Unavailable RICKY, GERARDO [facility] Primary Care Unavailable RICKY, GERARDO [facility] Primary Care Unavailable CORINA RUFFIN Attending Unavailable RICKY, GERARDO [facility] Primary Care Unavailable CORINA RUFFIN Referring Unavailable RICKY, GERARDO [facility] Primary Care Unavailable CHEIKH HIGH MD Admitting Unavailable CHEIKH HIGH MD Attending Unavailable RICKY, GERARDO [facility] Primary Care Unavailable MIGUEL, GHULAM B Admitting Unavailable MIGUEL, GHULAM B Attending Unavailable RICKY, GERARDO [facility] Primary Care Unavailable GHANDOUR, ABED AL HAMID Admitting Unavaila ble GHANDOUR, ABED AL HAMID Attending Unavaila ble RICKY, GERARDO [facility] Primary Care Unavailable CHEIKH HIGH MD Admitting Unavailable CHEIKH HIGH MD Attending Unavailable RICKY, GERARDO [facility] Primary Care Unavailable PROVIDER, UNKNOWN Admitting Unavailable PROVIDER, UNKNOWN Attending Unavailable RICKY, GERARDO [facility] Primary Care Unavailable Ricky, Gerardo Chi Primary Care Unavailable Byron, Luz Maria Referring Unavailable Byron, Luz Maria Attending Unavailable Ricky, Gerardo Chi Primary Care Unavailable Ricky, Gerardo Chi Attending Unavailable Ricky, Gerardo Chi Primary Care Unavailable Byron Luz Maria Attending Unavailable Ricky, Gerardo Chi Attending Unavailable Ricky, Gerardo Chi Primary Care Unavailable Ricky, Gerardo Chi Primary Care Unavailable Ricky, Gerardo Chi Attending Unavailable Lloyd Neves Attending Unavailable Ricky, Gerardo Chi Primary Care Unavailable Ricky, Gerardo Chi Referring Unavailable Ricky, Gerardo Chi Primary Care Unavailable Ricky, Gerarod Chi Referring Unavailable Cristina Ram Attending Unavailable Ricky, Gerardo Chi Attending Unavailable Ricky, Gerardo Chi Primary Care Unavailable Hunter Olvera Referring Unavailable WadeHunter johnson Attending Unavailable Ricky, Gerardo Chi Primary Care Unavailable Ricky, Gerardo Chi Primary Care Unavailable Ricky, Gerardo Chi Attending Unavailable Ricky, Gerardo Chi Attending Unavailable Ricky, Gerardo Chi Primary Care Unavailable Ricky, Gerardo Chi Primary Care Unavailable Ricky, Gerardo Chi Attending Unavailable Ricky, Gerardo Chi Primary Care Unavailable Ricky, Gerardo Chi Referring Unavailable Ricky, Gerardo Chi Attending Unavailable Allergies Allergy Classification Reported Allergen(s) Allergy Type Date of Onset Reaction(s) Facility Corticosteroids (2 sources) methylPREDNISolone Drug Allergy 01-04-20 Other: See Comments, Unknown [facility] HMG-CoA Reductase Inhibitors (statins) (1 source) Pravastatin Drug Allergy 01-04-20 15 Intolerance [facility] Sulfonamides (antibiotic) (1 source) Sulfamethoxazole Drug Allergy 01-04-20 15 Shortness of Breath [facility] (20 sources) Pravastatin; Translations: [PRAVASTATIN] Drug Allergy 01-04-20 15 Intolerance, Anaphylaxis [facility] Repository (20 sources) predniSONE; Translations: [PREDNISONE] Drug Allergy 01-04-20 15 Unknown [facility] (20 sources) Sulfamethoxazole; Translations: [SULFAMETHOXAZOLE] Drug Allergy 01-04-20 15 Shortness of Breath [facility] Repository (20 sources) INFLUENZA VIRUS VACCINES; Translations: [INFLUENZA VIRUS VACCINES] Propensity to adverse reactions (disorder) 01-04-20 15 Unknown [facility]ository (20 sources) Clindamycin Drug Allergy 02-15-20 unsure of reaction [facility] Comment on above: She thinks Levaquin or Clindamycin causes trouble breathing & swelling of feet (20 sources) levoFLOXacin Drug Allergy 02-15-20 UNSURE OF REACTION [facility] Comment on above: Pt thinks Levaquin o r Clindamycin cause difficulty breathing & swelling of feet (20 sources) methylPREDNISolone; Translations: [METHYLPREDNISOLONE] Drug Allergy 08-01-20 Other: See Comments [facility] (20 sources) Procaine Drug Allergy 02-15-20 NEEDS FOLLOW-UP [facility] Comment on above: Pt doesn't know (20 sources) Trimethoprim Drug Allergy 02-15-20 Shortness of breath [facility] (20 sources) Ynjuvwd-Szm-Fnb Reductase Inhibitor; Translations: [Zsvpslv-Fdj-Ewg Reductase Inhibitor] Allergy to substance 02-15-20 Anaphylaxis [facility] (4 sources) novacaine Allergy to substance 12-30-19 Unknown [facility] Work Phone: (20 sources) HMG-CoA reductase inhibitor; Translations: [AXKHBNX-FBN-BKW REDUCTASE INHIBITORS] Drug Allergy 12-07-19 Anaphylaxis [facility] (1 source) Clindamycin Drug Allergy 03-03-20 [facility] (1 source) levoFLOXacin Drug Allergy 03-03-20 [facility] (1 source) methylPREDNISolone Drug Allergy 03-03-20 [facility] (1 source) Procaine Drug Allergy 03-03-20 [facility] (1 source) Trimethoprim Drug Allergy 03-03-20 [facility] Rep[facility] Medications Current Medications Medication Drug Class(es) Dates Sig (Normalized) Sig (Original) Albuterol Sulfate (20 sources) beta2-Adrenergic Agonist Start: 07-25-2018 take 1 puff(s) by inhalation every six hours Albuterol Sulfate (Ventolin Hfa) 90 mcg/actuation HFA aerosol inhaler Active 2 PUFF INHALATION EVERY 6 HOURS July 25, 2018 11:03am Start: 07-25-2018 Start: 07-25-2018 take 1 puff(s) by in halation every six hours Albuterol Sulfate (Ventolin Hfa) 90 mcg/actuation HFA aerosol inhaler Active 2 PUFF INHALATION EVERY 6 HOURS July 25, 2018 12:00am Start: 07-25-2018 Start: 07-12-2015 End: 01-13-2025 take 1 spray(s) by inhalation every four hours as needed for wheezing albuterol sulfate (VENTOLIN INHALATION) Inhale 1 [place] as instructed every 4 hours as needed (wheezing/shortness of breath). 07/12/2015 01/13/2025 Discontinued (Erroneous entry) Start: 07-12-2015 take 1 spray(s) by i nhalation every four hours as needed for wheezing ALBUTEROL SULFATE (VENTOLIN INHALATION) Inhale 1 [place] as instructed every 4 hours as needed (wheezing/shortness of breath). 07/12/2015 Active Start: 07-12-2015 take 1 spray(s) by i nhalation every four hours as needed for wheezing ALBUTEROL SULFATE (VENTOLIN INHALATION) Inhale 1 [place] as instructed every 4 hours as needed (wheezing/shortness of breath). 0 07/12/2015 Suspended Start: 07-12-2015 take 1 spray(s) by i nhalation every four hours as needed for wheezing ALBUTEROL SULFATE (VENTOLIN INHALATION) Inhale 1 [place] as instructed every 4 hours as needed (wheezing/shortness of breath). 0 07/12/2015 Active Start: 09-09-2013 End: 01-08-2018 take 1 puff(s) by inhalation every six hours as needed Albuterol Sulfate (Proair Hfa) 1 PUFF inhaler Discontinued 2 PUFF INHALATION EVERY 6 HOURS NEEDED September 09, 2013 11:57am January 08, 2018 3:01pm Start: 09-09-2013 End: 01-08-2018 Albuterol Sulfate (Proair Hf a) 1 PUFF inhaler Discontinued 2 NMA INHALATION EVERY 6 HOURS NEEDED as needed for Dyspnea September 09, 2013 12:00am January 08, 2018 3:01pm take 2 puff(s) by in halation every four hours as needed for wheezing albuterol HFA (VENTOLIN HFA) 90 mcg/actuation inhaler Inhale 2 Puffs as instructed every 4 hours as needed for wheezing/shortness of breath. Active take 1 spray(s) by i nhalation every four hours as needed ALBUTEROL SULFATE (VENTOLIN INHALATION) Inhale 1 [place] as instructed every 4 hours as needed. 0 Active Comment on above: Inhale 1 [place] as in structed every 4 hours as needed. Inhale 1 [place] as in structed every 4 hours as needed (wheezing/shortness of breath). amLODIPine 2.5 mg oral tablet (20 sources) Dihydropyridine Calcium Channel Neyda Start: 09-23-2020 End: 08-12-2021 take 1 tablet by mouth once daily Start: 07-14-2020 End: 09-04-2020 take 1 tablet by mouth once daily Amlodipine 2.5 MG tablet Discontinued 2.5 mg PO DAILY September 01, 2020 10:06pm September 04, 2020 8:43am BP Comment on above: Take 2.5 mg by mouth once daily. Take 2.5 mg by mouth every morning. amoxicillin 500 mg oral capsule (20 sources) Penicillin-class Antibacterial Start: take 1000 mg by mouth three times daily Amoxicillin Active 1000 MG PO THREE TIMES A DAY July 19, 2022 12:00am Start: 01-14-2020 End: 02-27-2020 take 1 tablet by mouth three times daily Amoxicillin 875 MG tablet Discontinued 875 mg PO THREE TIMES A DAY 15 0 January 14, 2020 1:00am February 27, 2020 8:57am Start: 08-01-2019 End: 10-01-2019 take 1 tablet by mouth every eight hours Amoxicillin 250 MG tablet,chewable Discontinued 250 mg PO Q8H 10 0 August 01, 2019 12:00am October 01, 2019 10:30am cefepime 1000 mg injection (1 source) Cephalosporin Antibacterial Start: 01-16-2025 End: 01-24-2025 inject 100 mL intravenously every twelve hours cefepime (MAXIPIME) 1 g in D5W 100 mL Inject 100 mL intravenously every 12 hours for 8 days. 1600 mL 01/16/2025 01/24/2025 Active ipratropium bromide 0.042 mg/actuat metered dose nasal spray (20 sources) Anticholinergic Start: 11-23-2021 Start: 11-23-2021 Ipratropium Br omide Active 2 SPRAY INTRANASAL DAILY November 23, 2021 1:00am Start: 11-23-2021 Start: 11-23-2021 Ipratropium Br omide Active 1 SPRAY INTRANASAL TWICE A DAY November 23, 2021 1:00am ipratropium brom herminio (ATROVENT) 42 mcg (0.06 %) nasal spray Use 2 Sprays in the nose every morning. Active IPRATROPIUM BROM HERMINIO NASAL Use 1 [place] in the nose every morning. Active IPRATROPIUM BROM HERMINIO NASAL Use 1 [place] in the nose every morning. 0 Suspended IPRATROPIUM BROM HERMINIO NASAL Use 1 [place] in the nose every morning. 0 Active Comment on above: Use 1 [place] in the n ose every morning. levothyroxine sodium 0.025 mg oral tablet (20 sources) l-Thyroxine Start: 02-04-2024 take 1 tablet by mouth once daily Start: 01-17-2023 take 25 ug by mouth once daily Levothyroxine Active 25 MCG PO DAILY January 17, 2023 1:00am Start: 01-09-2020 take 25 ug by mouth once daily Levothyroxine Active 25 MCG PO DAILY January 09, 2020 12:00am Comment on above: Take 1 tablet by saba th every afternoon. mupirocin 0.02 mg/mg topical ointment (1 source) RNA Synthetase Inhibitor Antibacterial Start: 01-03-20 Mupirocin Active 1 APPLIC TOPICAL THREE TIMES A DAY January 03, 2023 12:00am pantoprazole 40 mg delayed release oral tablet (20 sources) Proton Pump Inhibitor Start: 03-27-20 take 1 tablet by mouth once daily Comment on above: Take 40 mg by mouth once daily. Take 40 mg by mouth every morning. microencapsulated potassium chloride 20 meq extended release oral tablet (20 sources) Start: 09-01-20 take 1 tablet by mouth once daily Start: 09-01-2020 take 20 mEq by mouth twice daily Potassium Chloride Active 20 MEQ PO TWICE A DAY August 31, 2020 11:00pm Start: 02-27-2020 End: 03-22-2020 take 1 tablet by mouth twice daily Potassium Chloride 20 mEq tablet extended release Discontinued 20 meq PO TWICE A DAY February 27, 2020 12:00am March 22, 2020 9:55am Start: 03-31-2019 End: 06-06-2019 Potassium Chloride (K-Dur) 2 0 MEQ tablet Discontinued 20 meq PO TWICE A DAY March 31, 2019 12:00am June 06, 2019 11:55am supplement Start: 03-31-2019 End: 06-06-2019 Comment on above: Take 20 mEq by mouth once daily. Take 20 mEq by mouth every morning. 125 ml sodium chloride 9 mg/ml prefilled syringe (20 sources) Start: 06-16-2024 End: 06-17-2024 sodium chloride 0.9 % (flush) 5-10 mL (BD POSIFLUSH) Start: 04-23-2024 End: 08-29-2025 sodium chloride 0.9 %, flush , (BD POSIFLUSH) syringe Indications: Other hydronephrosis 10 mL once daily. 300 mL 11 08/29/2024 08/29/2025 Active Urinary Bag (BARD URINARY DRAINAGE SYSTEM) misc (20 sources) Start: 03-03-2024 Urinary Bag (B [place] URINARY DRAINAGE SYSTEM) misc 2 Bags as needed. 10 Each 3 03/03/2024 Suspended Start: 03-03-2024 Urinary Bag (B [place] URINARY DRAINAGE SYSTEM) misc 2 Bags as needed. 10 Each 3 03/03/2024 Active Comment on above: 2 Bags as needed. Completed/Discontinued Medications Medication Drug Class(es) Dates Sig (Normalized) Sig (Original) acetaminophen 325 mg / HYDROcodone bitartrate 5 mg oral tablet (20 sources) Opioid Agonist Start: 11-29-2021 End: 12-07-2021 Hydrocodone-Acetami nophen 5-325 mg tablet Discontinued 1 {tbl} PO Q8H as needed for pain 10 3 0 November 29, 2021 December 07, 2021 2:25pm Chronic renal failure, stage 4 (severe) Chronic kidney disease, stage 4 (severe) Start: 11-29-2021 End: 12-07-2021 Start: 11-29-2021 End: 12-07-2021 take 1 tablet by mouth every eight hours Hydrocodone-Acetaminophen Discontinued 1 TABLET PO Q8H 10 3 November 29, 2021 December 07, 2021 2:25pm Albuterol Sulfate (Proair Hf a) 1 PUFF inhaler (20 sources) Start: 09-09-2013 End: 01-08-2018 Albuterol Sulfate (Proair Hf a) 1 PUFF inhaler Discontinued 2 NMA INHALATION EVERY 6 HOURS NEEDED as needed for Dyspnea September 09, 2013 12:00am January 08, 2018 3:01pm Start: 09-09-2013 End: 01-08-2018 take 1 puff(s) by inhalation every six hours as needed Albuterol Sulfate (Proair Hfa) 1 PUFF inhaler Discontinued 2 PUFF INHALATION EVERY 6 HOURS NEEDED September 08, 2013 11:00pm January 08, 2018 2:01pm Start: 09-09-2013 End: 01-08-2018 take 1 puff(s) by inhalation every six hours as needed Albuterol Sulfate (Proair Hfa) 1 PUFF inhaler Discontinued 2 PUFF INHALATION EVERY 6 HOURS NEEDED September 09, 2013 12:00am January 08, 2018 3:01pm apixaban 2.5 mg oral tablet (20 sources) Factor Xa Inhibitor Start: 12-21-2020 End: 02-14-2021 take 1 tablet by mouth twice daily Apixaban 2.5 MG tablet Discontinued 2.5 mg PO TWICE A DAY 28 0 December 21, 2020 1:00am February 14, 2021 1:26pm aspirin 81 mg delayed release oral tablet (20 sources) Platelet Aggregation Inhibitor, Nonsteroidal Anti-inflammatory Drug Start: 01-08-2018 End: 07-25-2018 take 1 tablet by mouth once daily Aspirin 81 MG tablet Discontinued 81 mg PO DAILY@0800 0 January 08, 2018 1:00am July 25, 2018 11:02am Beclomethasone (12 sources) Corticosteroid BECLOMETHASONE DIPROPIONATE (QVAR INHALATION) Inhale 1 Inhalation as instructed twice daily. 0 Active Comment on above: Inhale 1 Inhalation as instructed twice daily. calcitriol 0.25905 mg oral capsule (20 sources) Vitamin D3 Analog Start: 01-17-2023 End: 08-02-2023 Calcitriol 0.25 mcg capsule Discontinued 0.25 ug PO FR January 17, 2023 1:00am August 02, 2023 2:42pm Start: 01-17-2023 End: 08-02-2023 cephalexin 500 mg oral capsule (20 sources) Cephalosporin Antibacterial Start: 02-09-2024 End: 02-17-2024 take 1 capsule by mouth three times daily Cephalexin 500 mg capsule Discontinued 500 mg PO THREE TIMES A DAY February 14, 2024 12:00am February 17, 2024 10:14am infection Start: 12-24-2023 End: 12-24-2023 take 1 capsule by mouth once cephALEXin (KEFLEX) 250 m g capsule Take 1 capsule by mouth one time only for 1 dose. Take one hour before procedure 1 capsule 0 12/24/2023 12/24/2023 Start: 09-22-2023 End: 11-13-2023 take 1 capsule by mouth every six hours Cephalexin 500 mg capsule Discontinued 500 mg PO EVERY 6 HOURS 20 November 06, 2023 1:00am November 13, 2023 12:01pm Start: 02-14-2021 End: 02-21-2021 take 1 capsule by mouth three times daily Cephalexin 500 mg capsule Discontinued 500 mg PO THREE TIMES A DAY 21 7 February 14, 2021 12:00am February 20, 2021 12:00am February 21, 2021 12:02am Start: 03-31-2019 End: 04-10-2019 take 1 capsule by mouth every six hours Cephalexin 500 MG capsule Discontinued 500 mg PO EVERY 6 HOURS 10 March 31, 2019 12:00am April 09, 2019 12:00am April 10, 2019 12:06am Start: 11-28-2018 End: 12-15-2018 take 1 capsule by mouth every six hours Cephalexin 500 MG capsule Discontinued 500 mg PO EVERY 6 HOURS 28 November 28, 2018 1:00am December 15, 2018 1:26pm Comment on above: Take 1 capsule by [facility] one time only for 1 dose. Take one hour before procedure Take 1 capsule by mo [facility] three times a day for 5 days. cholecalciferol 1.25 mg oral capsule (20 sources) Vitamin D Start: 021 End: take 1 capsule by mouth every month Cholecalciferol (Vitamin D3) 1,250 mcg (50,000 unit) capsule Discontinued 1250 ug PO EVERY MONTH 12 August 02, 2022 4:20pm August 02, 2023 2:42pm ciprofloxacin 500 mg oral tablet (20 sources) Quinolone Antimicrobial Start: 024 End: 024 take 1 tablet by mouth twice daily Ciprofloxacin Hcl (Cipro) 500 mg tablet Discontinued 500 mg PO TWICE A DAY 10 February 17, 2024 12:00am June 17, 2024 10:22pm Start: 01-24-2023 End: 04-10-2023 take 1 tablet by mouth twice daily Ciprofloxacin Hcl (Cipro) 250 mg tablet Discontinued 250 mg PO TWICE A DAY 10 January 24, 2023 1:00am April 10, 2023 9:20am Start: 01-17-2023 End: 04-10-2023 take 1 tablet by mouth twice daily Ciprofloxacin Hcl 500 mg tablet Discontinued 500 mg PO TWICE A DAY January 17, 2023 1:00am April 10, 2023 9:20am Start: 08-01-2022 End: 01-03-2023 take 1 tablet by mouth twice daily Ciprofloxacin Hcl (Cipro) 500 mg tablet Discontinued 500 mg PO TWICE A DAY 12 August 01, 2022 12:00am January 03, 2023 3:36pm Start: 07-06-2021 End: 09-05-2021 take 1 tablet by mouth twice daily Ciprofloxacin Hcl (Cipro) 500 mg tablet Discontinued 500 mg PO TWICE A DAY July 06, 2021 12:00am September 05, 2021 2:01pm Start: 05-30-2019 End: 06-06-2019 take 1 tablet by mouth twice daily Ciprofloxacin Hcl 500 MG tablet Discontinued 500 mg PO TWICE A DAY May 30, 2019 12:00am June 06, 2019 11:55am antibiotic dexamethasone 2 mg oral tablet (20 sources) Corticosteroid Start: 12-21-2020 End: 02-14-2021 take 1 tablet by mouth once daily Dexamethasone 2 MG tablet Discontinued 2 mg PO DAILY December 21, 2020 1:00am February 14, 2021 1:25pm doxycycline monohydrate 100 mg oral capsule (20 sources) Tetracycline-class Drug Start: 04-10-2023 End: 04-20-2023 take 1 capsule by mouth twice daily Doxycycline Monohydrate 100 mg capsule Discontinued 100 mg PO TWICE A DAY April 10, 2023 12:00am April 19, 2023 12:00am April 20, 2023 12:03am Start: 05-24-2020 End: 07-13-2020 take 1 capsule by mouth once daily Doxycycline Hyclate 100 MG capsule Discontinued 100 mg PO DAILY May 24, 2020 12:00am July 13, 2020 1:25pm ergocalciferol 1.25 mg oral capsule (20 sources) Provitamin D2 Compound Start: 01-06-2018 End: 07-25-2018 Ergocalciferol (Vitamin D2) 50,000 UNIT capsule Discontinued [id number] U PO January 06, 2018 1:00am July 25, 2018 11:04am supplement Start: 01-06-2018 End: 07-25-2018 hydroCHLOROthiazide 12.5 mg / lisinopril 20 mg oral tablet (20 sources) Thiazide Diuretic, Angiotensin Converting Enzyme Inhibitor Start: 09-09-2013 End: 09-10-2013 take 1 tablet by mouth once daily Lisinopril/Hydrochlorothiazide (Zestoretic 20/12.5 Tablet) 1 TABLET tablet Discontinued 1 {tbl} PO DAILY September 09, 2013 12:00am September 10, 2013 8:30am Start: 09-09-2013 End: 09-10-2013 lactobacillus acidophilus [id number] unt / pectin 100 mg oral tablet (20 sources) Start: 09-04-2020 End: 09-11-2020 take 1 tablet by mouth four times daily Acidophilus-Pectin, Buena 1 TABLET tablet Discontinued 2 {tbl} PO 4 TIMES DAILY 56 7 0 September 04, 2020 12:00am September 10, 2020 12:00am September 11, 2020 12:03am Start: 09-04-2020 End: 09-11-2020 take 2 tablets by mouth four times daily Acidophilus-Pectin, Buena Discontinued 2 TABLET PO 4 TIMES DAILY 56 7 September 04, 2020 12:00am September 11, 2020 12:03am Start: 09-04-2020 End: 09-11-2020 levocetirizine dihydrochloride 5 mg oral tablet (20 sources) Histamine-1 Receptor Antagonist Start: 05-24-2020 End: 07-13-2020 take 1 tablet by mouth once daily Levocetirizine 5 MG tablet Discontinued 5 mg PO DAILY May 24, 2020 12:00am July 13, 2020 1:25pm lisinopril 10 mg oral tablet (20 sources) Angiotensin Converting Enzyme Inhibitor Start: 02-12-2015 End: 11-24-2018 take 4 tablets by mouth once daily Lisinopril 10 MG tablet Discontinued 40 mg PO DAILY February 12, 2015 12:00am November 24, 2018 12:00pm blood pressure Start: 02-12-2015 End: 11-24-2018 take 40 mg by mouth once daily Lisinopril Discontinued 40 MG PO DAILY February 12, 2015 12:00am November 24, 2018 12:00pm loperamide hydrochloride 2 mg oral capsule (20 sources) Opioid Agonist Start: 06-06-2019 End: 03-22-2020 take 4 capsules by mouth every two hours as needed Loperamide 2 mg capsule Discontinued 2 mg PO EVERY 2 HOURS NEEDED as needed for loose stools, max 8 mg/day February 27, 2020 8:57am March 22, 2020 9:55am Start: 06-06-2019 End: 03-22-2020 take 2 mg by mouth every two hours as needed Loperamide Discontinued 2 MG PO EVERY 2 HOURS NEEDED February 27, 2020 8:57am March 22, 2020 9:55am metoprolol tartrate 50 mg oral tablet (20 sources) beta-Adrenergic Neyda Start: 01-27-2019 End: 11-10-2023 take 1 tablet by mouth twice daily Metoprolol Tartrate 50 MG tablet Discontinued 50 mg PO TWICE A DAY January 27, 2019 12:00am November 10, 2023 9:34pm blood pressure nitrofurantoin, macrocrystals 25 mg / nitrofurantoin, monohydrate 75 mg oral capsule (9 sources) Nitrofuran Antibacterial Start: 11-13-2023 End: 02-14-2024 take 1 capsule by mouth every twelve hours at mealtime Nitrofurantoin Monohyd/M-Cryst (Macrobid) 100 mg capsule Discontinued 100 mg PO Q12H 10 5 0 November 13, 2023 1:00am February 14, 2024 7:50pm must administer with a meal/food piperacillin 3000 mg / tazobactam 375 mg injection (19 sources) Penicillin-class Antibacterial, beta Lactamase Inhibitor Start: 08-06-2023 End: 08-21-2023 Piperacillin-Tazoba ctam 3.375 gram recon soln Discontinued 3.375 g IV Q8H 13 0 August 06, 2023 12:00am August 20, 2023 12:00am August 21, 2023 12:04am stop date 08/20/23 dx: pseudomonas pyelonephritis weekly bmp, cbc. Fax to [phone] vancomycin 250 mg oral capsule (20 sources) Glycopeptide Antibacterial Start: 09-04-2020 End: 09-12-2020 take 2 capsules by mouth every six hours Vancomycin 250 MG capsule Discontinued 500 mg PO EVERY 6 HOURS 32 8 0 September 04, 2020 12:00am September 11, 2020 12:00am September 12, 2020 12:03am Start: 09-04-2020 End: 09-12-2020 take 500 mg by mouth every six hours Vancomycin Discontinued 500 MG PO EVERY 6 HOURS 32 8 September 04, 2020 12:00am September 12, 2020 12:03am (6 sources) Start: 09-09-2013 End: 01-08-2018 Problems Active Problems Problem Classification Problem Date Documented Date Episodic/Chronic Asthma (20 sources) Mild intermittent asthma; Translations: [Mild intermittent asthma, uncomplicated] Onset: 5 04-23-2019 Chronic Cancer of cervix (20 sources) Malignant tumor of cervix; Translations: [Malignant neoplasm of cervix uteri, unspecified] 09-23-2020 Chronic Cancer of cervix (20 sources) History of malignant neoplasm of cervix; Translations: [Personal history of malignant neoplasm of cervix uteri] 05-30-2021 Episodic Cardiac dysrhythmias (20 sources) Tachycardia; Translations: [Tachycardia, unspecified] Episodic Cataract (20 sources) Hypermature senile cataract; Translations: [Age-related cataract, morgagnian type, unspecified eye] Onset: 5 Resolved: 5 01-04-2015 Chronic Chronic kidney disease (20 sources) Chronic renal failure; Translations: [Chronic kidney disease, stage 4 (severe)] Onset: 5 Chronic Complication of device; implant or graft (20 sources) Dialysis finding; Translations: [Other specified complication of vascular prosthetic devices, implants and grafts, initial encounter] 09-23-2020 Chronic Conditions associated with dizziness or vertigo (20 sources) Dizziness and giddiness; Translations: [Vertigo] Onset: 8 12-19-2020 Episodic Deficiency and other anemia (1 source) Anemia in other chronic diseases classified elsewhere; Translations: [Anemia in other chronic diseases classified elsewhere] Onset: 5 Chronic Diseases of white blood cells (20 sources) Lymphocytosis; Translations: [Lymphocytosis (symptomatic)] Onset: 3 Chronic Disorders of lipid metabolism (20 sources) Hyperlipidemia; Translations: [Hyperlipidemia, unspecified] Onset: 5 02-27-2020 Chronic Essential hypertension (20 sources) Essential hypertension; Translations: [Essential (primary) hypertension] Onset: 5 05-19-2021 Chronic Comment on above: controlled with meds Fluid and electrolyte disorders (20 sources) Metabolic acidosis, increased anion gap (IAG); Translations: [Acidosis] 09-23-2020 Episodic Genitourinary symptoms and ill-defined conditions (20 sources) Pyuria; Translations: [Pyuria] 09-19-2023 Episodic Menopausal disorders (20 sources) Atrophic vaginitis; Translations: [Postmenopausal atrophic vaginitis] 05-30-2021 Chronic Other aftercare (20 sources) Wound finding; Translations: [Encounter for other specified aftercare] 12-13-2021 Episodic Other circulatory disease (20 sources) History of cardiovascular surgery; Translations: [Presence of other cardiac implants and grafts] Onset: 0 05-28-2020 Chronic Other circulatory disease (1 source) Presence of other cardiac implants and grafts; Translations: [Other specified cardiac device in situ] Onset: 0 Chronic Other circulatory disease (4 sources) Arteriovenous fistula of left upper extremity; Translations: [Arteriovenous fistula, acquired] 06-26-2024 Chronic Other circulatory disease (4 sources) Arteriovenous fistula; Translations: [Arteriovenous fistula, acquired] 03-03-2025 Chronic Other circulatory disease (1 source) Bleeding 01-27-2025 Episodic Other diseases of kidney and ureters (1 source) Secondary hyperparathyroidism of renal origin; Translations: [Secondary hyperparathyroidism of renal origin] Onset: 5 Chronic Other diseases of kidney and ureters (20 sources) Bilateral hydronephrosis ; Translations: [Unspecified hydronephrosis] Onset: 3 03-22-2020 Episodic Comment on above: worsening. Other diseases of kidney and ureters (20 sources) Hydronephrosis; Translations: [Unspecified hydronephrosis] Onset: 3 08-04-2023 Episodic Other gastrointestinal disorders (20 sources) Acute diarrhea; Translations: [Diarrhea, unspecified] 09-23-2020 Episodic Other gastrointestinal disorders (20 sources) Diarrhea; Translations: [Diarrhea, unspecified] Onset: 3 09-19-2023 Episodic Other gastrointestinal disorders (9 sources) Diarrhea, unspecified; Translations: [Diarrhea] 09-19-2023 Episodic Other infections; including parasitic (2 sources) History of sepsis; Translations: [Personal history of other infectious and parasitic diseases] 11-10-2023 Episodic Other infections; including parasitic (2 sources) Personal history of other infectious and parasitic diseases; Translations: [Personal history of other infectious and parasitic diseases] 11-10-2023 Episodic Other lower respiratory disease (2 sources) Wheezing; Translations: [Wheezing] Onset: 5 Episodic Other nervous system disorders (20 sources) Dunbar's palsy; 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] 09-23-2020 Episodic Other nervous system disorders (20 sources) H/O: Dunbar's palsy; Translations: [Personal history of other diseases of the nervous system and sense organs] 04-23-2019 Episodic Other nutritional; endocrine; and metabolic disorders (6 sources) Obese class I; Translations: [Obesity, Class I, BMI 30-34.9] Onset: 5 01-16-2025 Chronic Peripheral and visceral atherosclerosis (20 sources) Intermittent claudication; Translations: [Peripheral vascular disease, unspecified] 10-20-2021 Chronic Skin and subcutaneous tissue infections (20 sources) Abscess of buttock; Translations: [Cutaneous abscess of buttock] Episodic Syncope (20 sources) Near syncope; Translations: [Syncope and collapse] Episodic Thyroid disorders (20 sources) Hypothyroidism; Translations: [Hypothyroidism, unspecified] 02-23-2021 Chronic Unclassified (1 source) Unknown / UNK(Unknown) Onset: 8 Unclassified (2 sources) Autogenerated Problem Onset: 5 07-08-2025 Unclassified (1 source) Cough, unspecified; Translations: [Cough, unspecified] Onset: 5 Viral infection (20 sources) COVID-19; Translations: [Pneumonia due to 2019-nCoV] 12-19-2020 Episodic Past or Other Problems Problem Classification Problem Date Documented Date Episodic/Chronic Acute and unspecified renal failure (20 sources) Injury of kidney; Translations: [Acute kidney failure, unspecified] Onset: 10-10-2023 03-22-2020 Episodic Bacterial infection; unspecified site (8 sources) Bacteremia caused by Gram-negative bacteria; Translations: [Bacteremia] Onset: 01-12-2025 01-13-2025 Episodic Blindness and vision defects (20 sources) Regular astigmatism; Translations: [Regular astigmatism, unspecified eye] Onset: 01-04-2015 01-04-2015 Episodic Complication of device; implant or graft (11 sources) Displacement of nephrostomy tube; Translations: [Displacement of nephrostomy catheter, initial encounter] Onset: 12-05-2024 12-05-2024 Episodic Other diseases of kidney and ureters (17 sources) Unspecified hydronephrosis; Translations: [Hydronephrosis] Onset: 11-17-2023 08-07-2023 Episodic Other diseases of kidney and ureters (1 source) Other hydronephrosis; Translations: [Other hydronephrosis] Onset: 09-29-2024 Episodic Residual codes; unclassified (20 sources) History of cardiac catheterization; Translations: [Other specified postprocedural states] Onset: 12-20-2017 09-23-2020 Episodic Comment on above: normal coronaries Residual codes; unclassified (1 source) Chills (without fever); Translations: [Chills (without fever)] Onset: 12-05-2024 Episodic Septicemia (except in labor) (20 sources) Sepsis; Translations: [Sepsis, unspecified organism] Onset: 09-06-2024 Episodic Unclassified (20 sources) history of radium implant 09-23-2020 Urinary tract infections (20 sources) Urinary tract infectious disease; Translations: [Urinary tract infection, site not specified] Onset: 10-10-2023 Resolved: 06-19-2024 Episodic Results Test Name Value Interpretation Reference Range Facility [id number] 09-01-2025 [id number] [facility] BRIEF OP NOTon 09-01-2025 BRIEF OP NOT [facility] IR EXCHANGE NEPH TUBE BILATo n 09-01-2025 IR EXCHANGE NEPH TUBE BILAT [facility] NURSING PROGon 09-01-2025 NURSING PROG [facility] NURSING PROGon 08-26-2025 NURSING PROG [facility] Absolute lymphocyte countOrd ered By: Gerardo García on 08-03-2025 Lymphocytes Auto (Unsp spec) [#/Vol] 4.85 10*3/uL High 0.83-4.51 [facility] Absolute neutrophil countOrd ered By: Gerardo García on 08-03-2025 Neutrophils (Bld) [#/Vol] 3.4 10*3/uL 2.0-7.7 [facility] Anion gap in Serum or Plasma Ordered By: Gerardo García on 08-03-2025 Anion gap [Moles/Vol] 12 mmol/L 04-02 [facility] Automated lymphocyte count a s percentage of total leukocytesOrdered By: Gerardo García on 08-03-2025 Lymphocytes/100 WBC Auto (Unsp spec) 53.2 % High 19-41 [facility] BUN/creatinine ratioOrdered By: Gerardo Hays08-03-2025 Urea nitrogen/Creatinine [Mass ratio] 10.3 mg/mg 10-20 [facility] Basophil percentageOrdered B y: Gerardo Haysok on 08-03-2025 Basophils/100 WBC (Bld) 0.7 % 0-1 [facility] Bilirubin, totalOrdered By: Gerardo Haysok on 08-03-2025 Bilirubin [Mass/Vol] 0.57 mg/dL 0.00-1.30 [facility] Calculated very low density lipoprotein (VLDL) cholesterol measurementOrdered By: Gerardo García 08-03-2025 Calculated very low density lipoprotein (VLDL) cholesterol measurement 21 mg/dL 5-40 [facility] Carbon dioxide, total [Moles /volume] in Central venous bloodOrdered By: Gerardo García 08-03-2025 CO2 [Moles/Vol] 22.8 mmol/L 21.0-32.0 [facility] Chloride assayOrdered By: Lenny García 08-03-2025 Chloride [Moles/Vol] 105 mmol/L 98-108 [facility] Eosinophil percentageOrdered By: Gerardo Hays08-03-2025 Eosinophils/100 WBC (Bld) 2.0 % 0-5 [facility] Erythrocyte distribution wid th ratioOrdered By: Gerardo García 08-03-2025 Erythrocyte distribution width (RBC) [Ratio] 14.3 % 11.6-14.6 [facility] Erythrocyte distribution wid th standard deviationOrdered By: Gerardo Hays08-03-2025 Erythrocyte distribution width (RBC) [Ratio] 44.7 fl High 35.1-43.9 [facility] Glomerular filtration rate ( GFR) estimation/1.73 sq m using serum, plasma, or whole bOrdered By: Gerardo García 08-03-2025 GFR/1.73 sq M.predicted among non-blacks MDRD (S/P/Bld) [Vol rate/Area] 27 mL/min/{1.73_m2} Low >60 [facility] Comment on above: mL/min/1.73m2 CKD-EP I Creatinine Equation (2020) Hematocrit Auto (Bld) [Volum e fraction]Ordered By: Gerardo García on 08-03-2025 Hematocrit (Bld) [Volume fraction] 40.6 % 37-47 [facility] Hemoglobin measurementOrdere d By: Gerardo García 08-03-2025 Hemoglobin (Bld) [Mass/Vol] 13.2 g/dL 12.0-15.0 [facility] Immature granulocytes/100 WB C Auto (Bld)Ordered By: Gerardo García 08-03-2025 Immature granulocytes/100 WBC (Bld) 0.300 % 0.0-0.9 [facility] Comment on above: IG% - Immature Granu locytes (promyelocytes, myelocytes and metamyelocytes) > 1% indicates that a LEFT SHIFT is Present. LDL calc ser/plasOrdered By: Gerardo García 08-03-2025 Cholesterol in LDL [Mass/Vol] 117 mg/dL [facility] Comment on above: Uogbqjoaew=431-130 m g/dL & Higher Vooc=894 mg/dL or greaterFriedwald Equation for LDL-C Laboratory - Chemistry and C hemistry - challengeOrdered By: Gerardo García 08-03-2025 AST [Catalytic activity/Vol] 18 U/L <32 [facility] MCV (mean corpuscular volume ) determinationOrdered By: Gerardo García 08-03-2025 MCV (RBC) [Entitic vol] 85.8 fL 81-99 [facility] Mean corpuscular hemoglobin (MCH) determinationOrdered By: Gerardo García 08-03-2025 MCH (RBC) [Entitic mass] 27.9 pg 27.0-32.0 [facility] Mean corpuscular hemoglobin concentration (MCHC) determinationOrdered By: Gerardo García 08-03-2025 MCHC (RBC) [Mass/Vol] 32.5 g/dL 32-36 [facility] Mean platelet volume determi nationOrdered By: Gerardo García 08-03-2025 Platelet mean volume (Bld) [Entitic vol] 10.0 fL 6.2-12.0 [facility] Monocyte percentageOrdered B y: Gerardo García on 08-03-2025 Monocytes/100 WBC (Bld) 7.0 % 0-10 [facility] Neutrophil percentageOrdered By: Gerardo García on 08-03-2025 Neutrophils/100 WBC (Bld) 36.8 % Low 47-70 [facility] Nucleated red blood cell per centageOrdered By: Gerardo García on 08-03-2025 Nucleated RBC/100 WBC (Bld) [Ratio] 0 % 0-5 [facility] Platelet countOrdered By: Lenny García on 08-03-2025 Platelets (Bld) [#/Vol] 330 10*3/uL 150-450 [facility] Potassium measurement (mass/ volume)Ordered By: Gerardo García on 08-03-2025 Potassium (Unsp spec) [Mass/Vol] 4.2 mmol/L 3.3-5.1 [facility] RBC Auto (Bld) [#/Vol]Ordere d By: Gerardo García on 08-03-2025 RBC (Bld) [#/Vol] 4.73 10*6/uL 4.2-5.4 [facility] Screening total cholesterol/ high density lipoprotein (HDL) cholesterol ratioOrdered By: Gerardo García on 08-03-2025 Cholesterol.total/Choles terol in HDL [Mass ratio] 4.42 {ratio} [facility] Serum creatinine measurement (mass/volume)Ordered By: Gerardo García on 08-03-2025 Creatinine [Mass/Vol] 1.93 mg/dL High 0.70-1.20 [facility] Serum globulin measurementOr dered By: Gerardo García 08-03-2025 Globulin (S) [Mass/Vol] 4.2 g/dL 2.2-4.2 [facility] Serum glucose measurement (m ass/volume)Ordered By: Gerardo García 08-03-2025 Glucose [Mass/Vol] 108 mg/dL High 70-99 [facility] Serum or plasma alanine masterson otransferase (ALT) measurementOrdered By: Gerardo García 08-03-2025 ALT [Catalytic activity/Vol] 8 U/L <35 [facility] Serum or plasma albumin yunior urement (mass/volume)Ordered By: Gerardo García 08-03-2025 Albumin [Mass/Vol] 3.6 g/dL 3.4-4.8 [facility] Serum or plasma albumin/glob ulin mass ratioOrdered By: Gerardo García 08-03-2025 Albumin/Globulin [Mass ratio] 0.9 {ratio} 0.9-2.4 [facility] Serum or plasma alkaline terry sphatase measurementOrdered By: Gerardo Ricky 08-03-2025 ALP [Catalytic activity/Vol] 151 U/L High 35-104 [facility] Serum or plasma calcium yunior urement (mass/volume)Ordered By: Gerardo García 08-03-2025 Calcium [Mass/Vol] 8.6 mg/dL 7.6-11.0 [facility] Serum or plasma cholesterol in HDL measurement (mass/volume)Ordered By: Gerardo Ricky 08-03-2025 Cholesterol in HDL [Mass/Vol] 40 mg/dL >40 [facility] Comment on above: National Cholesterol Education Program (NCEP) guidelines:<40 mg/dL: Low HDL-cholesterol (major risk factor for CHD)>= 60 mg/dL: High HDL-cholesterol (negative risk factor for CHD)HDL-cholesterol is affected by a number of factors, e.g. smoking, exercise, hormones, sex and age. Serum or plasma cholesterol measurement (mass/volume)Ordered By: Gerardo Haysok 08-03-2025 Cholesterol [Mass/Vol] 178 mg/dL <201 [facility] Comment on above: Cholesterol level, D esirable <200 mg/dLBorderline high cholesterol 200-239 mg/dLHigh cholesterol >=240 mg/dLRecommendations of the NCEP Adult Treatment Panel for the following risk-cutoff thresholds for the [place] population. Serum or plasma urea nitroge n measurement (mass/volume)Ordered By: Gerardo García 08-03-2025 Urea nitrogen [Mass/Vol] 20 mg/dL High 4-19 [facility] Sodium levelOrdered By: Gerardo García 08-03-2025 Sodium [Moles/Vol] 140 mmol/L 133-145 [facility] TSH DL <= 0.005 mIU/L QnOrde red By: Gerardo García 08-03-2025 TSH Qn 2.400 uIU/mL 0.300-4.20 0 [facility] Total proteinOrdered By: Gerardo García on 08-03-2025 Protein [Mass/Vol] 7.8 g/dL 5.9-8.4 [facility] Triglycerides measurementOrd ered By: Gerardo García on 08-03-2025 Triglyceride [Mass/Vol] 105 mg/dL <199 [facility] Comment on above: The drugs N-Acetylcy steine and Metamizole may falsely depress this assay. Normal range: <150 mg/dLBorderline High: 150-199 mg/dLHigh: 200-499 mg/dLVery High: >500 mg/dL White blood cell (WBC) count Ordered By: Gerardo García on 08-03-2025 WBC (Bld) [#/Vol] 9.1 10*3/uL 4.4-11.0 [facility] [id number] 07-09-2025 [id number] [facility] BRIEF OP NOTon 07-09-2025 BRIEF OP NOT [facility] HISTORY PHYSICALon HISTORY PHYSICAL [facility] IR EXCHANGE NEPH TUBE BILATo n 07-09-2025 IR EXCHANGE NEPH TUBE BILAT [facility] CNPNon 07-08-2025 CNPN [facility] Absolute lymphocyte countOrd ered By: Gerardo García on 07-06-2025 Lymphocytes Auto (Unsp spec) [#/Vol] 4.76 10*3/uL High 0.83-4.51 [facility] Absolute neutrophil countOrd ered By: Gerardo García on 07-06-2025 Neutrophils (Bld) [#/Vol] 5.7 10*3/uL 2.0-7.7 [facility] Anion gap in Serum or Plasma Ordered By: Gerardo García on 07-06-2025 Anion gap [Moles/Vol] 13 mmol/L 5-15 [facility] Automated lymphocyte count a s percentage of total leukocytesOrdered By: Gerardo García on 07-06-2025 Lymphocytes/100 WBC Auto (Unsp spec) 41.6 % High - [facility] BUN/creatinine ratioOrdered By: Gerardo García on 07-06-2025 Urea nitrogen/Creatinine [Mass ratio] 9.0 mg/mg Low 10-20 [facility] Basophil percentageOrdered B y: Gerardo García on 07-06-2025 Basophils/100 WBC (Bld) 0.6 % 0-1 [facility] Bilirubin Test strip Ql (U)O rdered By: Gerardo García on 07-06-2025 Bilirubin Ql (U) Negative Negative [facility] Carbon dioxide, total [Moles /volume] in Central venous bloodOrdered By: Gerardo García on 07-06-2025 CO2 [Moles/Vol] 22.2 mmol/L 21.0-32.0 [facility] Chloride assayOrdered By: Lenny García on 07-06-2025 Chloride [Moles/Vol] 104 mmol/L 98-108 [facility] Eosinophil percentageOrdered By: Gerardo García 07-06-2025 Eosinophils/100 WBC (Bld) 1.1 % 0-5 [facility] Erythrocyte distribution wid th ratioOrdered By: Gerardo García 07-06-2025 Erythrocyte distribution width (RBC) [Ratio] 14.2 % 11.6-14.6 [facility] Erythrocyte distribution wid th standard deviationOrdered By: Gerardo García 07-06-2025 Erythrocyte distribution width (RBC) [Ratio] 45.7 fl High 35.1-43.9 [facility] Glomerular filtration rate ( GFR) estimation/1.73 sq m using serum, plasma, or whole bOrdered By: Gerardo García 07-06-2025 GFR/1.73 sq M.predicted among non-blacks MDRD (S/P/Bld) [Vol rate/Area] 31 mL/min/{1.73_m2} Low >60 [facility] Comment on above: mL/min/1.73m2 CKD-EP I Creatinine Equation (2020) Hematocrit Auto (Bld) [Volum e fraction]Ordered By: Gerardo García 07-06-2025 Hematocrit (Bld) [Volume fraction] 41.3 % 37-47 [facility] Hemoglobin measurementOrdere d By: Gerardo García 07-06-2025 Hemoglobin (Bld) [Mass/Vol] 13.4 g/dL 12.0-15.0 [facility] Immature granulocytes/100 WB C Auto (Bld)Ordered By: Gerardo García on 07-06-2025 Immature granulocytes/100 WBC (Bld) 0.600 % 0.0-0.9 [facility] Comment on above: IG% - Immature Granu locytes (promyelocytes, myelocytes and metamyelocytes) > 1% indicates that a LEFT SHIFT is Present. Ketones Test strip Ql (U)Ord ered By: Gerardo García on 07-06-2025 Ketones Ql (U) Negative Negative [facility] MCV (mean corpuscular volume ) determinationOrdered By: Gerardo García on 07-06-2025 MCV (RBC) [Entitic vol] 87.9 fL 81-99 [facility] Mean corpuscular hemoglobin (MCH) determinationOrdered By: Gerardo García 07-06-2025 MCH (RBC) [Entitic mass] 28.5 pg 27.0-32.0 [facility] Mean corpuscular hemoglobin concentration (MCHC) determinationOrdered By: Gerardo García 07-06-2025 MCHC (RBC) [Mass/Vol] 32.4 g/dL 32-36 [facility] Mean platelet volume determi nationOrdered By: Gerardo García 07-06-2025 Platelet mean volume (Bld) [Entitic vol] 11.0 fL 6.2-12.0 [facility] Microscopic analysis of urin e for red blood cells (RBC)Ordered By: Gerardo García 07-06-2025 Microscopic analysis of urine for red blood cells (RBC) 0 SEEN /hpf 0-5 [facility] Monocyte percentageOrdered B y: Gerardo García on 07-06-2025 Monocytes/100 WBC (Bld) 6.5 % 0-10 [facility] Mucus LM Ql (Urine sed)Order ed By: Gerardo aGrcía on 07-06-2025 Mucus Ql (Urine sed) 0 SEEN /hpf [facility] Neutrophil percentageOrdered By: Gerardo García on 07-06-2025 Neutrophils/100 WBC (Bld) 49.6 % 47-70 [facility] Nitrite Test strip Ql (U)Ord ered By: Gerardo García on 07-06-2025 Nitrite Ql (U) Negative Negative [facility] Nucleated red blood cell per centageOrdered By: Gerardo García on 07-06-2025 Nucleated RBC/100 WBC (Bld) [Ratio] 0 % 0-5 [facility] Platelet countOrdered By: Lenny García on 07-06-2025 Platelets (Bld) [#/Vol] 304 10*3/uL 150-450 [facility] Potassium measurement (mass/ volume)Ordered By: Gerardo García on 07-06-2025 Potassium (Unsp spec) [Mass/Vol] 4.2 mmol/L 3.3-5.1 [facility] Protein Test strip Ql (U)Ord ered By: Gerardo García on 07-06-2025 Protein Ql (U) 30 mg/dl High Negative [facility] RBC Auto (Bld) [#/Vol]Ordere d By: Gerardo García on 07-06-2025 RBC (Bld) [#/Vol] 4.70 10*6/uL 4.2-5.4 [facility] Serum creatinine measurement (mass/volume)Ordered By: Gerardo García on 07-06-2025 Creatinine [Mass/Vol] 1.74 mg/dL High 0.70-1.20 [facility] Serum glucose measurement (m ass/volume)Ordered By: Gerardo García 07-06-2025 Glucose [Mass/Vol] 82 mg/dL 70-99 [facility] Serum or plasma C reactive p rotein measurement (mass/volume)Ordered By: Gerardo García 07-06-2025 CRP [Mass/Vol] 26.70 mg/L High 0.0-3.0 [facility] Serum or plasma calcium yunior urement (mass/volume)Ordered By: Gerardo García 07-06-2025 Calcium [Mass/Vol] 8.5 mg/dL 7.6-11.0 [facility] Serum or plasma urea nitroge n measurement (mass/volume)Ordered By: Gerardo García 07-06-2025 Urea nitrogen [Mass/Vol] 16 mg/dL 4-19 [facility] Sodium levelOrdered By: Gerardo García 07-06-2025 Sodium [Moles/Vol] 139 mmol/L 133-145 [facility] Squamous epithelial cells de tection in urine sediment by light microscopyOrdered By: Gerardo García on 07-06-2025 Epithelial cells.squamous LM Ql (Urine sed) 0 SEEN /hpf 5-10 [facility] Transitional cells detection in urine sediment by light microscopyOrdered By: Gerardo García on 07-06-2025 Transitional cells LM Ql (Urine sed) 0-5 SEEN /hpf 0-5 [facility] Urine clarityOrdered By: Gerardo García on 07-06-2025 Clarity (U) Sl. Cloudy Clear [facility] Urine color determinationOrd ered By: Gerardo García on 07-06-2025 Color (U) Yellow Yellow [facility] Urine cultureOrdered By: Gerardo García 07-06-2025 Bacteria identified Cx Nom (U) Pseudomonas aeruginosa#2 Abnormal [facility] Bacteria identified Cx Nom (U) Pseudomonas aeruginosa Abnormal [facility] Bacteria identified Cx Nom (U) Enterococcus faecalis Abnormal [facility] Urine glucose detectionOrder ed By: Gerardo García on 07-06-2025 Glucose Ql (U) Normal mg/dl Normal [facility] Urine leukocyte esterase det ection by dipstickOrdered By: Gerardo García 07-06-2025 Leukocyte esterase Test strip Ql (U) 500 /ul High Negative [facility] Urine pHOrdered By: Gerardo García on 07-06-2025 pH (U) 7.0 [pH] 5.0 - 8.0 [facility] Urine sediment bacteria coun t by microscopy (number/high power field)Ordered By: Gerardo García 07-06-2025 Bacteria LM.HPF (Urine sed) [#/Area] 1 /[HPF] None Seen [facility] Urine specific gravity measu rementOrdered By: Gerardo García on 07-06-2025 Specific gravity (U) [Rel density] 1.005 1.002-1.03 0 [facility] Urine urobilinogen measureme ntOrdered By: Gerardo García 07-06-2025 Urobilinogen Ql (U) Normal mg/dl Normal [facility] White blood cell (WBC) count Ordered By: Gerardo García 07-06-2025 WBC (Bld) [#/Vol] 11.5 10*3/uL High 4.4-11.0 [facility] White blood cell countOrdere d By: Gerardo García on 07-06-2025 White blood cell count 0-5 SEEN /hpf 0-5 [facility] [id number] 06-15-2025 [id number] [facility] ALLIED HEALTHon 06-15-2025 ALLIED HEALTH [facility] BRIEF OP NOTon 06-15-2025 BRIEF OP NOT [facility] IR EXCHANGE NEPH TUBE BILATo n 06-15-2025 IR EXCHANGE NEPH TUBE BILAT [facility] NURSING PROGon 06-09-2025 NURSING PROG [facility] [id number] 04-20-2025 [id number] [facility] BRIEF OP NOTon 04-20-2025 BRIEF OP NOT [facility] IR EXCHANGE NEPH TUBE BILATo n 04-20-2025 IR EXCHANGE NEPH TUBE BILAT [facility] IR FLOURO GUID NEEDLE PLCon 04-20-2025 IR FLOURO GUID NEEDLE PLC [facility] NURSING PROGon 04-20-2025 NURSING PROG [facility] NURSING PROG [facility] NURSING PROG [facility] NURSING PROGon 04-16-2025 NURSING PROG [facility] Anion gap in Serum or Plasma Ordered By: Luz Maria Matthews on 04-15-2025 Anion gap [Moles/Vol] 11 mmol/L 5-15 [facility] BUN/creatinine ratioOrdered By: Luz Maria Matthews on 04-15-2025 Urea nitrogen/Creatinine [Mass ratio] 9.6 mg/mg Low 10-20 [facility] Carbon dioxide, total [Moles /volume] in Central venous bloodOrdered By: Luz Maria Matthews on 04-15-2025 CO2 [Moles/Vol] 25.3 mmol/L 21.0-32.0 [facility] Chloride assayOrdered By: Rashid Matthews on 04-15-2025 Chloride [Moles/Vol] 103 mmol/L 98-108 [facility] Glomerular filtration rate ( GFR) estimation/1.73 sq m using serum, plasma, or whole bOrdered By: Luz Maria Matthews on 04-15-2025 GFR/1.73 sq M.predicted among non-blacks MDRD (S/P/Bld) [Vol rate/Area] 27 mL/min/{1.73_m2} Low >60 [facility] Comment on above: mL/min/1.73m2 CKD-EP I Creatinine Equation (2020) Potassium measurement (mass/ volume)Ordered By: Luz Maria Matthews on 04-15-2025 Potassium (Unsp spec) [Mass/Vol] 4.8 mmol/L 3.3-5.1 [facility] Serum creatinine measurement (mass/volume)Ordered By: Luz Maria Matthews on 04-15-2025 Creatinine [Mass/Vol] 1.95 mg/dL High 0.70-1.20 [facility] Serum glucose measurement (m ass/volume)Ordered By: Luz Maria Matthews on 04-15-2025 Glucose [Mass/Vol] 104 mg/dL High 70-99 [facility] Serum or plasma albumin yunior urement (mass/volume)Ordered By: Luz Maria Matthews on 04-15-2025 Albumin [Mass/Vol] 3.7 g/dL 3.4-4.8 [facility] Serum or plasma calcium yunior urement (mass/volume)Ordered By: Luz Maria Matthews on 04-15-2025 Calcium [Mass/Vol] 9.3 mg/dL 7.6-11.0 [facility] Serum or plasma urea nitroge n measurement (mass/volume)Ordered By: Luz Maria Matthews on 04-15-2025 Urea nitrogen [Mass/Vol] 19 mg/dL 4-19 [facility] Sodium levelOrdered By: Davida Matthews on 04-15-2025 Sodium [Moles/Vol] 139 mmol/L 133-145 [facility] Influenza virus A and B and SARS-CoV-2 (COVID-19) and Respiratory syncytial virus RNAOrdered By: Gerardo García on 03-20-2025 SARS-CoV-2 (COVID-19) RNA BOBBI+probe Ql (Unsp spec) [facility] BRIEF OP NOTon 02-23-2025 BRIEF OP NOT [facility] IR EXCHANGE NEPH TUBE BILATo n 02-23-2025 IR EXCHANGE NEPH TUBE BILAT [facility] Absolute lymphocyte countOrd ered By: Gerardo García on 02-02-2025 Lymphocytes Auto (Unsp spec) [#/Vol] 4.84 10*3/uL High 0.83-4.51 [facility] Absolute neutrophil countOrd ered By: Gerardo García on 02-02-2025 Neutrophils (Bld) [#/Vol] 4.1 10*3/uL 2.0-7.7 [facility] Anion gap in Serum or Plasma Ordered By: Gerardo García on 02-02-2025 Anion gap [Moles/Vol] 12 mmol/L 5-15 [facility] Automated lymphocyte count a s percentage of total leukocytesOrdered By: Gerardo García on 02-02-2025 Lymphocytes/100 WBC Auto (Unsp spec) 48.9 % High 19-41 [facility] BUN/creatinine ratioOrdered By: Gerardo García on 02-02-2025 Urea nitrogen/Creatinine [Mass ratio] 11.1 mg/mg 10-20 [facility] Basophil percentageOrdered B y: Gerardo García on 02-02-2025 Basophils/100 WBC (Bld) 0.6 % 0-1 [facility] Bilirubin, totalOrdered By: Gerardo García on 02-02-2025 Bilirubin [Mass/Vol] 0.42 mg/dL 0.00-1.30 [facility] Calculated very low density lipoprotein (VLDL) cholesterol measurementOrdered By: Gerardo García on 02-02-2025 Calculated very low density lipoprotein (VLDL) cholesterol measurement 25 mg/dL 5-40 [facility] VLDL Cholesterol 25 mg/dL 5-40 [facility] Carbon dioxide, total [Moles /volume] in Central venous bloodOrdered By: Gerardo García on 02-02-2025 CO2 [Moles/Vol] 22.9 mmol/L 21.0-32.0 [facility] Chloride assayOrdered By: Lenny García on 02-02-2025 Chloride [Moles/Vol] 104 mmol/L 98-108 [facility] Eosinophil percentageOrdered By: Gerardo García on 02-02-2025 Eosinophils/100 WBC (Bld) 1.3 % 0-5 [facility] Erythrocyte distribution wid th ratioOrdered By: Gerardo García on 02-02-2025 Erythrocyte distribution width (RBC) [Ratio] 13.4 % 11.6-14.6 [facility] Erythrocyte distribution wid th standard deviationOrdered By: Gerardo García on 02-02-2025 Erythrocyte distribution width (RBC) [Entitic vol] 45.4 fL High 35.1-43.9 [facility] Erythrocyte distribution width (RBC) [Ratio] 45.4 fl High 35.1-43.9 [facility] GFR/1.73 sq M.predicted rachel g non-blacks MDRD (S/P/Bld) [Vol rate/Area]Ordered By: Gerardo García on 02-02-2025 Estimated GFR (MDRD) Non-Af Amer 33 Low >60 [facility] Comment on above: mL/min/1.73m2 CKD-EP I Creatinine Equation (2020) Glomerular filtration rate ( GFR) estimation/1.73 sq m using serum, plasma, or whole bOrdered By: Gerardo García on 02-02-2025 GFR/1.73 sq M.predicted among non-blacks MDRD (S/P/Bld) [Vol rate/Area] 33 mL/min/{1.73_m2} Low >60 [facility] Comment on above: mL/min/1.73m2 CKD-EP I Creatinine Equation (2020) Hematocrit Auto (Bld) [Volum e fraction]Ordered By: Gerardo García on 02-02-2025 Hematocrit (Bld) [Volume fraction] 42.4 % 37-47 [facility] Hemoglobin measurementOrdere d By: Gerardo García 02-02-2025 Hemoglobin (Bld) [Mass/Vol] 13.2 g/dL 12.0-15.0 [facility] Immature granulocytes/100 WB C Auto (Bld)Ordered By: Gerardo García 02-02-2025 Immature granulocytes/100 WBC (Bld) 0.200 % 0.0-0.9 [facility] Comment on above: IG% - Immature Granu locytes (promyelocytes, myelocytes and metamyelocytes) > 1% indicates that a LEFT SHIFT is Present. LDL calc ser/plasOrdered By: Gerardo García on 02-02-2025 Cholesterol in LDL [Mass/Vol] 120 mg/dL [facility] Comment on above: Glqcwvzamy=549-387 m g/dL & Higher Vpkp=247 mg/dL or greater LDL Cholesterol, Calculated 120 mg/dL [facility] Comment on above: Eybopjluio=513-079 m g/dL & Higher Ezds=773 mg/dL or greater Laboratory - Chemistry and C hemistry - challengeOrdered By: Gerardo García on 02-02-2025 AST [Catalytic activity/Vol] 18 U/L <32 [facility] Comment on above: Hemolysis present, R esults could be affected. Lymphocytes Auto (Unsp spec) [#/Vol]Ordered By: Gerardo García on 02-02-2025 Lymphocytes (Bld) [#/Vol] 4.84 10*3/uL High 0.83-4.51 [facility] Lymphocytes/100 WBC Auto (Un sp spec)Ordered By: Gerardo García on 02-02-2025 Lymphocytes/100 WBC (Bld) 48.9 % High 19-41 [facility] MCV (mean corpuscular volume ) determinationOrdered By: Gerardo García on 02-02-2025 MCV (RBC) [Entitic vol] 91.4 fL 81-99 [facility] Mean corpuscular hemoglobin (MCH) determinationOrdered By: Gerardo García on 02-02-2025 MCH (RBC) [Entitic mass] 28.4 pg 27.0-32.0 [facility] Mean corpuscular hemoglobin concentration (MCHC) determinationOrdered By: Gerardo García on 02-02-2025 MCHC (RBC) [Mass/Vol] 31.1 g/dL Low 32-36 [facility] Mean platelet volume determi nationOrdered By: Gerardo García on 02-02-2025 Platelet mean volume (Bld) [Entitic vol] 10.0 fL 6.2-12.0 [facility] Monocyte percentageOrdered B y: Gerardo García on 02-02-2025 Monocytes/100 WBC (Bld) 8.0 % 0-10 [facility] Neutrophil percentageOrdered By: Gerardo García on 02-02-2025 Neutrophils/100 WBC (Bld) 41.0 % Low 47-70 [facility] Nucleated red blood cell per centageOrdered By: Gerardo García on 02-02-2025 Nucleated RBC/100 WBC (Bld) [Ratio] 0 % 0-5 [facility] Platelet countOrdered By: Lenny García on 02-02-2025 Platelets (Bld) [#/Vol] 353 10*3/uL 150-450 [facility] Potassium (Unsp spec) [Mass/ Vol]Ordered By: Gerardo García on 02-02-2025 Potassium [Moles/Vol] 4.2 mmol/L 3.3-5.1 [facility] Comment on above: Hemolysis present, R esults could be affected. Potassium measurement (mass/ volume)Ordered By: Gerardo García on 02-02-2025 Potassium (Unsp spec) [Mass/Vol] 4.2 mmol/L 3.3-5.1 [facility] Comment on above: Hemolysis present, R esults could be affected. RBC Auto (Bld) [#/Vol]Ordere d By: Gerardo García on 02-02-2025 RBC (Bld) [#/Vol] 4.64 10*6/uL 4.2-5.4 [facility] Screening total cholesterol/ high density lipoprotein (HDL) cholesterol ratioOrdered By: Gerardo García 02-02-2025 Cholesterol.total/Choles terol in HDL [Mass ratio] 4.54 {ratio} [facility] Serum creatinine measurement (mass/volume)Ordered By: Gerardo García 02-02-2025 Creatinine [Mass/Vol] 1.66 mg/dL High 0.70-1.20 [facility] Serum globulin measurementOr dered By: Gerardo García 02-02-2025 Globulin (S) [Mass/Vol] 4.4 g/dL High 2.2-4.2 [facility] Serum glucose measurement (m ass/volume)Ordered By: Gerardo García 02-02-2025 Glucose [Mass/Vol] 112 mg/dL High 70-99 [facility] Serum or plasma alanine masterson otransferase (ALT) measurementOrdered By: Gerardo García 02-02-2025 ALT [Catalytic activity/Vol] 7 U/L <35 [facility] Serum or plasma albumin yunior urement (mass/volume)Ordered By: Gerardo García 02-02-2025 Albumin [Mass/Vol] 3.6 g/dL 3.4-4.8 [facility] Serum or plasma albumin/glob ulin mass ratioOrdered By: Gerardo García 02-02-2025 Albumin/Globulin [Mass ratio] 0.8 {ratio} Low 0.9-2.4 [facility] Serum or plasma alkaline terry sphatase measurementOrdered By: Gerardo García 02-02-2025 ALP [Catalytic activity/Vol] 129 U/L High 35-104 [facility] Serum or plasma calcium yunior urement (mass/volume)Ordered By: Gerardo García 02-02-2025 Calcium [Mass/Vol] 9.0 mg/dL 7.6-11.0 [facility] Serum or plasma cholesterol in HDL measurement (mass/volume)Ordered By: Gerardo García 02-02-2025 Cholesterol in HDL [Mass/Vol] 41 mg/dL >40 [facility] Comment on above: National Cholesterol Education Program (NCEP) guidelines:<40 mg/dL: Low HDL-cholesterol (major risk factor for CHD)>= 60 mg/dL: High HDL-cholesterol (negative risk factor for CHD)HDL-cholesterol is affected by a number of factors, e.g. smoking, exercise, hormones, sex and age. Serum or plasma cholesterol measurement (mass/volume)Ordered By: Gerardo García 02-02-2025 Cholesterol [Mass/Vol] 186 mg/dL <201 [facility] Comment on above: Cholesterol level, D esirable <200 mg/dLBorderline high cholesterol 200-239 mg/dLHigh cholesterol >=240 mg/dLRecommendations of the NCEP Adult Treatment Panel for the following risk-cutoff thresholds for the [place] population. Serum or plasma urea nitroge n measurement (mass/volume)Ordered By: Gerardo García 02-02-2025 Urea nitrogen [Mass/Vol] 19 mg/dL 4-19 [facility] Sodium levelOrdered By: Gerardo Gracía 02-02-2025 Sodium [Moles/Vol] 139 mmol/L 133-145 [facility] TSH DL <= 0.005 mIU/L QnOrde red By: Gerardo García 02-02-2025 Thyroid Stimulating Hormone (TSH) 2.250 uIU/mL 0.300-4.20 0 [facility] TSH Qn 2.250 uIU/mL 0.300-4.20 0 [facility] Total proteinOrdered By: Gerardo García 02-02-2025 Protein [Mass/Vol] 8.0 g/dL 5.9-8.4 [facility] Triglycerides measurementOrd ered By: Gerardo García on 02-02-2025 Triglyceride [Mass/Vol] 125 mg/dL <199 [facility] Comment on above: The drugs N-Acetylcy steine and Metamizole may falsely depress this assay. Normal range: <150 mg/dLBorderline High: 150-199 mg/dLHigh: 200-499 mg/dLVery High: >500 mg/dL Vitamin D, 25-hydroxyOrdered By: Gerardo García on 02-02-2025 Vitamin D 25-Hydroxy 28.9 ng/mL Low 30-100 [facility] Comment on above: Vitamin D StatusDefi ciency: <20 ng/mL (50nmol/L)Insufficiency: 20-30 ng/mL (50-75 nmol/L)Sufficiency: 30-100 ng/mL (75-250 nmol/L)Toxicity: >100 ng/mL (>250 nmol/L) White blood cell (WBC) count Ordered By: Gerardo García on 02-02-2025 WBC (Bld) [#/Vol] 9.9 10*3/uL 4.4-11.0 [facility] CNOVon 01-27-2025 CNOV Normal [facility] XR ABDOMEN 1V SUPINEon 01-27 XR ABDOMEN 1V SUPINE Normal [facility] Basic metabolic 2000 panelon 01-19-2025 Anion gap [Moles/Vol] 6 mmol/L Normal 5-16 [facility] Comment on above: Order Comment: Speci men Type: BLOOD SPECIMENOrdering Facility: [facility] Address: [address] [place] [address] Performed By: #### 2 4321-2 ####[facility] LABORATORYCLIA [id number] [place] [address] [place] Calcium [Mass/Vol] 9.1 mg/dL Normal 8.5-10.5 [facility] Comment on above: Order Comment: Speci men Type: BLOOD SPECIMENOrdering Facility: [facility] Address: [address] [place] [address] Performed By: #### 2 4321-2 ####[facility] LABORATORYCLIA [id number] [place] [address] [place] Chloride [Moles/Vol] 104 mmol/L Normal 98-107 [facility] Comment on above: Order Comment: Speci men Type: BLOOD SPECIMENOrdering Facility: [facility] Address: [address] [place] [address] Performed By: #### 2 4321-2 ####[facility] LABORATORYCLIA [id number] [place] [address] [place] CO2 [Moles/Vol] 27 mmol/L Normal 21-32 [facility] Comment on above: Order Comment: Speci men Type: BLOOD SPECIMENOrdering Facility: [facility] Address: [address] [place] [address] Performed By: #### 2 4321-2 ####[facility] LABORATORYCLIA [id number] [place] [address] [place] Creatinine [Mass/Vol] 1.53 mg/dL High 0.51-0.95 [facility] Comment on above: Order Comment: Speci men Type: BLOOD SPECIMENOrdering Facility: [facility] Address: [address] [place] [address] Result Comment: Mayda ents receiving either N-Acetylcysteine (NAC) or Metamizole prior to venipuncture, may have falsely depressed results. Performed By: #### 2 4321-2 ####[facility] LABORATORYCLIA [id number] [address] [place] Creatinine and Glomerular filtration rate.predicted panel (S/P/Bld) 36 mL/min/1.73m??? Low >=60 [facility] Comment on above: Order Comment: Speci men Type: BLOOD SPECIMENOrdering Facility: [facility] Address: [address] [place] [address] Result Comment: Judith mated Glomerular Filtration Rate (eGFR) is calculated using the 2020 CKD-EPI creatinine equation. This equation utilizes serum creatinine, sex, and age as parameters. The creatinine assay has traceable calibration to isotope dilution-mass spectrometry. Refer to KDIGO guidelines for clinical interpretation. In patients with unstable renal function, e.g. those with acute kidney injury, the eGFR may not accurately reflect actual GFR. Performed By: #### 2 4321-2 ####[facility] LABORATORYCLIA [id number] [place] [id number] [place] Glucose [Mass/Vol] 77 mg/dL Normal 70-100 [facility] Comment on above: Order Comment: Abdon lyles Type: BLOOD SPECIMENOrdering Facility: [facility] Address: [address] [place] [address] Result Comment: The [place] Diabetes Association (ADA) provides guidance for cutoff values for fasting glucose and random glucose. The ADA defines fasting as no caloric intake for at least 8 hours. Fasting plasma glucose results between 100 to 125 mg/dL indicate increased risk for diabetes (prediabetes).Fasting plasma glucose results greater than or equal to 126 mg/dL meet the criteria for diagnosis of diabetes. In the absence of unequivocal hyperglycemia, results should be confirmed by repeat testing. In a patient with classic symptoms of hyperglycemia or hyperglycemic crisis, random plasma glucose results greater than or equal to 200 mg/dL meet the criteria for diagnosis of diabetes.Reference: Standards of Medical Care in Diabetes 2016, [place] [employer]. Diabetes Care. 2016.39(Suppl 1).Results may be falsely elevated after the administration of Sulfapyridine.Results may be falsely depressed after the administration of Sulfasalazine. Performed By: #### 2 4321-2 ####[facility] LABORATORYCLIA [id number] [place] [id number] [place] Potassium [Moles/Vol] 4.2 mmol/L Normal 3.5-5.1 [facility] Comment on above: Order Comment: Abdon lyles Type: BLOOD SPECIMENOrdering Facility: [facility] Address: [address] [place] [address] Performed By: #### 2 4321-2 ####[facility] LABORATORYCLIA [id number] [place] [id number] [place] Sodium [Moles/Vol] 137 mmol/L Normal 136-145 [facility] Comment on above: Order Comment: Abdon lyles Type: BLOOD SPECIMENOrdering Facility: [facility] Address: [address] [place] [id number] Performed By: #### 2 4321-2 ####[facility] LABORATORYCLIA [id number] [place] [address] [place] Urea nitrogen [Mass/Vol] 23 mg/dL Normal 7-26 [facility] Comment on above: Order Comment: Speci men Type: BLOOD SPECIMENOrdering Facility: [facility] Address: [address] [place] [address] [place] [id number] Performed By: #### 2 4321-2 ####[facility] LABORATORYCLIA [id number] [place] [address] [place] CASE MANAGEMon 01-19-2025 CASE MANAGEM Normal [facility] CNDSon 01-19-2025 CNDS [facility] Basic metabolic 2000 panelon 01-18-2025 Anion gap [Moles/Vol] 6 mmol/L Normal 5-16 [facility] Comment on above: Order Comment: Speci men Type: BLOOD SPECIMENOrdering Facility: [facility] Address: [address] [place], [place] [id number] Performed By: #### 2 777-1, , 92369-0 ####[facility] LABORATORYCLIA [id number] [place] [id number] [place] Calcium [Mass/Vol] 8.9 mg/dL Normal 8.5-10.5 [facility] Comment on above: Order Comment: Speci men Type: BLOOD SPECIMENOrdering Facility: [facility] Address: [facility] SHAHZADJose Antonio [place]CH[place] [id number] Performed By: #### 2 777-1, , 08702-7 ####[facility] LABORATORYCLIA [id number] [place] [id number] [place] Chloride [Moles/Vol] 107 mmol/L Normal 98-107 [facility] Comment on above: Order Comment: Speci men Type: BLOOD SPECIMENOrdering Facility: [facility] Address: [facility] [place] [address] Performed By: #### 2 777-1, , ####[facility] LABORATORYCLIA [id number] [place] [address] [place] CO2 [Moles/Vol] 27 mmol/L Normal 21-32 [facility] Comment on above: Order Comment: Speci men Type: BLOOD SPECIMENOrdering Facility: [facility] Address: [address] [place] [address] Performed By: #### 2 777-1, , ####[facility] LABORATORYCLIA [id number] [place] [address] [place] Creatinine [Mass/Vol] 1.59 mg/dL High 0.51-0.95 [facility] Comment on above: Order Comment: Speci men Type: BLOOD SPECIMENOrdering Facility: [facility] Address: [address] [place] [address] Result Comment: Mayda ents receiving either N-Acetylcysteine (NAC) or Metamizole prior to venipuncture, may have falsely depressed results. Performed By: #### 2 777-1, , ####[facility] LABORATORYCLIA [id number] [address] Creatinine and Glomerular filtration rate.predicted panel (S/P/Bld) 34 mL/min/1.73m??? Low >=60 [facility] Comment on above: Order Comment: Speci men Type: BLOOD SPECIMENOrdering Facility: [facility] Address: [address] [place] [address] Result Comment: Judith mated Glomerular Filtration Rate (eGFR) is calculated using the 2020 CKD-EPI creatinine equation. This equation utilizes serum creatinine, sex, and age as parameters. The creatinine assay has traceable calibration to isotope dilution-mass spectrometry. Refer to KDIGO guidelines for clinical interpretation. In patients with unstable renal function, e.g. those with acute kidney injury, the eGFR may not accurately reflect actual GFR. Performed By: #### 2 777-1, , ####[facility] LABORATORYCLIA [id number] [place] [address] [place] Glucose [Mass/Vol] 89 mg/dL Normal 70-100 [facility] Comment on above: Order Comment: Abdon lyles Type: BLOOD SPECIMENOrdering Facility: [facility] Address: [address] [id number] Result Comment: The [place] [employer] (ADA) provides guidance for cutoff values for fasting glucose and random glucose. The ADA defines fasting as no caloric intake for at least 8 hours. Fasting plasma glucose results between 100 to 125 mg/dL indicate increased risk for diabetes (prediabetes).Fasting plasma glucose results greater than or equal to 126 mg/dL meet the criteria for diagnosis of diabetes. In the absence of unequivocal hyperglycemia, results should be confirmed by repeat testing. In a patient with classic symptoms of hyperglycemia or hyperglycemic crisis, random plasma glucose results greater than or equal to 200 mg/dL meet the criteria for diagnosis of diabetes.Reference: Standards of Medical Care in Diabetes 2016, [place] [employer]. Diabetes Care. 2016.39(Suppl 1).Results may be falsely elevated after the administration of Sulfapyridine.Results may be falsely depressed after the administration of Sulfasalazine. Performed By: #### 2 777-1, , ####[facility] LABORATORYCLIA [id number] [place] [address] [place] Potassium [Moles/Vol] 3.8 mmol/L Normal 3.5-5.1 [facility] Comment on above: Order Comment: Abdon lyles Type: BLOOD SPECIMENOrdering Facility: [facility] Address: [address] [place] [address] Performed By: #### 2 777-1, , ####[facility] LABORATORYCLIA [id number] [place] [address] [place] Sodium [Moles/Vol] 140 mmol/L Normal 136-145 [facility] Comment on above: Order Comment: Abdon lyles Type: BLOOD SPECIMENOrdering Facility: [facility] Address: [address] [id number] Performed By: #### 2 777-1, , ####[facility] LABORATORYCLIA [id number] [place] [address] [place] Urea nitrogen [Mass/Vol] 22 mg/dL Normal 7-26 [facility] Comment on above: Order Comment: Speci men Type: BLOOD SPECIMENOrdering Facility: [facility] Address: [address] [place] [address] Performed By: #### 2 777-1, , 39791-0 ####[facility] LABORATORYCLIA [id number] [place] [address] [place] Magnesium SerPl-ncon 01-18 Magnesium [Mass/Vol] 1.9 mg/dL Normal 1.6-2.6 [facility] Comment on above: Order Comment: Speci men Type: BLOOD SPECIMENOrdering Facility: [facility] Address: [address] [place] [address] Performed By: #### 2 777-1, , 96517-7 ####[facility] LABORATORYCLIA [id number] [place] [id number] [place] Phosphate SerPl-mCncon 01-18 Phosphate [Mass/Vol] 3.9 mg/dL Normal 2.5-4.9 [facility] Comment on above: Order Comment: Speci men Type: BLOOD SPECIMENOrdering Facility: [facility] Address: [address] [place] [address] Result Comment: Elev ated m-protein (paraprotein) levels in the serum may be exhibited in patients with monoclonal gammopathies, causing falsely elevated inorganic phosphorus results. Performed By: #### 2 777-1, , 11347-3 ####[facility] LABORATORYCLIA [id number] [place] [id number] [place] Basic metabolic 2000 panelon 01-17-2025 Anion gap [Moles/Vol] 8 mmol/L Normal 5-16 [facility] Comment on above: Order Comment: Speci men Type: BLOOD SPECIMENOrdering Facility: [facility] Address: [address] [place], [place] [address] Performed By: #### 2 777-1, , ####[facility] LABORATORYCLIA [id number] [place] [id number] [place] Calcium [Mass/Vol] 9.5 mg/dL Normal 8.5-10.5 [facility] Comment on above: Order Comment: Speci men Type: BLOOD SPECIMENOrdering Facility: [facility] Address: [address] [place], [place] [address] Performed By: #### 2 777-1, , ####[facility] LABORATORYCLIA [id number] [place] [id number] [place] Chloride [Moles/Vol] 107 mmol/L Normal 98-107 [facility] Comment on above: Order Comment: Speci men Type: BLOOD SPECIMENOrdering Facility: [facility] Address: [address] [place], [place] [address] Performed By: #### 2 777-1, , ####[facility] LABORATORYCLIA [id number] [place] [address] [place] CO2 [Moles/Vol] 24 mmol/L Normal 21-32 [facility] Comment on above: Order Comment: Speci men Type: BLOOD SPECIMENOrdering Facility: [facility] Address: [address] [place], [place] [address] Performed By: #### 2 777-1, , ####[facility] LABORATORYCLIA [id number] [place] [address] [place] Creatinine [Mass/Vol] 1.64 mg/dL High 0.51-0.95 [facility] Comment on above: Order Comment: Speci men Type: BLOOD SPECIMENOrdering Facility: [facility] Address: [address] [place], [place] [address] Result Comment: Mayda ents receiving either N-Acetylcysteine (NAC) or Metamizole prior to venipuncture, may have falsely depressed results. Performed By: #### 2 777-1, 63949-4, 42015-3 ####[facility] LABORATORYCLIA [id number] [place] [id number] [place] Creatinine and Glomerular filtration rate.predicted panel (S/P/Bld) 33 mL/min/1.73m??? Low >=60 [facility] Comment on above: Order Comment: Abdon lyles Type: BLOOD SPECIMENOrdering Facility: [facility] Address: [address] [place] [address] Result Comment: Judith mated Glomerular Filtration Rate (eGFR) is calculated using the 2020 CKD-EPI creatinine equation. This equation utilizes serum creatinine, sex, and age as parameters. The creatinine assay has traceable calibration to isotope dilution-mass spectrometry. Refer to KDIGO guidelines for clinical interpretation. In patients with unstable renal function, e.g. those with acute kidney injury, the eGFR may not accurately reflect actual GFR. Performed By: #### 2 777-1, , 49502-7 ####[facility] LABORATORYCLIA [id number] [place] [id number] [place] Glucose [Mass/Vol] 91 mg/dL Normal 70-100 [facility] Comment on above: Order Comment: Abdon lyles Type: BLOOD SPECIMENOrdering Facility: [facility] Address: [address] [place] [address] Result Comment: The [place] Diabetes [employer] (ADA) provides guidance for cutoff values for fasting glucose and random glucose. The ADA defines fasting as no caloric intake for at least 8 hours. Fasting plasma glucose results between 100 to 125 mg/dL indicate increased risk for diabetes (prediabetes).Fasting plasma glucose results greater than or equal to 126 mg/dL meet the criteria for diagnosis of diabetes. In the absence of unequivocal hyperglycemia, results should be confirmed by repeat testing. In a patient with classic symptoms of hyperglycemia or hyperglycemic crisis, random plasma glucose results greater than or equal to 200 mg/dL meet the criteria for diagnosis of diabetes.Reference: Standards of Medical Care in Diabetes 2016, [place] [employer]. Diabetes Care. 2016.39(Suppl 1).Results may be falsely elevated after the administration of Sulfapyridine.Results may be falsely depressed after the administration of Sulfasalazine. Performed By: #### 2 777-1, , 15593-3 ####[facility] LABORATORYCLIA [id number] [place] [id number] [place] Potassium [Moles/Vol] 4.0 mmol/L Normal 3.5-5.1 [facility] Comment on above: Order Comment: Speci men Type: BLOOD SPECIMENOrdering Facility: [facility] Address: [address] [place] [address] Performed By: #### 2 777-1, , 30680-9 ####[facility] LABORATORYCLIA [id number] [place] [id number] [place] Sodium [Moles/Vol] 139 mmol/L Normal 136-145 [facility] Comment on above: Order Comment: Speci men Type: BLOOD SPECIMENOrdering Facility: [facility] Address: [address] [place] [address] Performed By: #### 2 777-1, , ####[facility] LABORATORYCLIA [id number] [place] [id number] [place] Urea nitrogen [Mass/Vol] 20 mg/dL Normal 7-26 [facility] Comment on above: Order Comment: Speci men Type: BLOOD SPECIMENOrdering Facility: [facility] Address: [address] [place] [address] Performed By: #### 2 777-1, , ####[facility] LABORATORYCLIA [id number] [place] [id number] [place] Magnesium SerPl-mCncon 01-17 Magnesium [Mass/Vol] 1.9 mg/dL Normal 1.6-2.6 [facility] Comment on above: Order Comment: Speci men Type: BLOOD SPECIMENOrdering Facility: [facility] Address: [address] [place] [address] Performed By: #### 2 777-1, , 23639-2 ####[facility] LABORATORYCLIA [id number] [place] [id number] [place] Phosphate SerPl-mCncon 01-17 Phosphate [Mass/Vol] 4.0 mg/dL Normal 2.5-4.9 [facility] Comment on above: Order Comment: Abdon lyles Type: BLOOD SPECIMENOrdering Facility: [facility] Address: [address] [place] [address] Result Comment: Elev ated m-protein (paraprotein) levels in the serum may be exhibited in patients with monoclonal gammopathies, causing falsely elevated inorganic phosphorus results. Performed By: #### 2 777-1, 30839-9, 23425-2 ####[facility] LABORATORYCLIA [id number] [place] [id number] [facility] [place] CASE MANAGEMon 01-16-2025 CASE MANAGEM Normal [facility] CBC panel Auto (Bld)on 01-16 Erythrocyte distribution width (RBC) [Ratio] 13.4 % Normal 11.5-15.0 [facility] Comment on above: Order Comment: Randalli rafal Type: BLOOD SPECIMENOrdering Facility: [facility] Address: [address] [place] [address] Performed By: #### 5 8410-2 ####[facility] CENTERIA [id number] [place] [address] [place] Hematocrit (Bld) [Volume fraction] 37.2 % Normal 36.0-46.0 [facility] Comment on above: Order Comment: Speci men Type: BLOOD SPECIMENOrdering Facility: [facility] Address: [address] [place] [address] Performed By: #### 5 8410-2 ####[facility] LABORATORYCLIA [id number] [place] [id number] [place] Hemoglobin (Bld) [Mass/Vol] 12.2 g/dL Normal 11.5-15.5 [facility] Comment on above: Order Comment: Randalli rafal Type: BLOOD SPECIMENOrdering Facility: [facility] Address: [address] [place] [address] Performed By: #### 5 8410-2 ####[facility] LABORATORYCLIA [id number] [address] [place] MCH (RBC) [Entitic mass] 29.3 pg Normal 26.0-34.0 [facility] Comment on above: Order Comment: Speci men Type: BLOOD SPECIMENOrdering Facility: [facility] Address: [address] [place] [address] Performed By: #### 5 8410-2 ####[facility] LABORATORYCLIA [id number] [address] [place] MCHC (RBC) [Mass/Vol] 32.8 g/dL Normal 30.5-36.0 [facility] Comment on above: Order Comment: Speci men Type: BLOOD SPECIMENOrdering Facility: [facility] Address: [address] [place] [address] Performed By: #### 5 8410-2 ####[facility] LABORATORYCLIA [id number] [address] MCV (RBC) [Entitic vol] 89.2 fL Normal 80.0-100.0 M [facility] Comment on above: Order Comment: Speci men Type: BLOOD SPECIMENOrdering Facility: [facility] Address: [address] [place] [address] Performed By: #### 5 8410-2 ####[facility] LABORATORYCLIA [id number] [address] [place] Nucleated RBC (Bld) [#/Vol] 10*3/uL Normal <0.01 [facility] Comment on above: Order Comment: Speci men Type: BLOOD SPECIMENOrdering Facility: [facility] Address: [address] [place] [address] Performed By: #### 5 8410-2 ####[facility] LABORATORYCLIA [id number] [address] [place] Platelet mean volume (Bld) [Entitic vol] 9.6 fL Normal 9.0-12.7 [facility] Comment on above: Order Comment: Speci men Type: BLOOD SPECIMENOrdering Facility: [facility] Address: [address] [place] [address] Performed By: #### 5 8410-2 ####[facility] LABORATORYCLIA [id number] [place] [id number] [facility] [place] Platelets (Bld) [#/Vol] 279 10*3/uL Normal 150-400 [facility] Comment on above: Order Comment: Speci men Type: BLOOD SPECIMENOrdering Facility: [facility] Address: [address] [place] [address] Performed By: #### 5 8410-2 ####[facility] LABORATORYCLIA [id number] [place] [id number] [place] RBC (Bld) [#/Vol] 4.17 10*6/uL Normal 3.90-5.20 [facility] Comment on above: Order Comment: Speci men Type: BLOOD SPECIMENOrdering Facility: [facility] Address: [address] [place], [place] [address] Performed By: #### 5 8410-2 ####[facility] LABORATORYCLIA [id number] [address] WBC (Bld) [#/Vol] 8.19 10*3/uL Normal 3.70-11.00 [facility] Comment on above: Order Comment: Speci men Type: BLOOD SPECIMENOrdering Facility: [facility] Address: [address] [place] [address] Performed By: #### 5 8410-2 ####[facility] LABORATORYCLIA [id number] [place] [id number] [facility] [place] CONSULT PROGon 01-16-2025 CONSULT PROG Normal [facility] Comprehensive metabolic 2000 panelon 01-16-2025 Albumin [Mass/Vol] 2.7 g/dL Low 3.2-5.0 [facility] Comment on above: Order Comment: Speci men Type: BLOOD SPECIMENOrdering Facility: [facility] Address: [address] [place] [address] Performed By: #### 1 9123-9, 23769-8 ####[facility] LABORATORYCLIA [id number] [place] [address] [place] ALP [Catalytic activity/Vol] 117 U/L Normal 45-117 [facility] Comment on above: Order Comment: Speci men Type: BLOOD SPECIMENOrdering Facility: [facility] Address: [address] [place] [address] Performed By: #### 1 9123-9, 45497-5 ####[facility] LABORATORYCLIA [id number] [place] [address] [place] ALT [Catalytic activity/Vol] 17 U/L Normal 13-61 [facility] Comment on above: Order Comment: Speci men Type: BLOOD SPECIMENOrdering Facility: [facility] Address: [address] [place] [address] Result Comment: Resu lts may be falsely depressed after the administration of Sulfasalazine and/or Sulfapyridine. Performed By: #### 1 9123-9, 78877-1 ####[facility] LABORATORYCLIA [id number] [address] [place] OF [facility] Anion gap [Moles/Vol] 7 mmol/L Normal 5-16 [facility] Comment on above: Order Comment: Speci men Type: BLOOD SPECIMENOrdering Facility: [facility] Address: [address] [place] [address] Performed By: #### 1 9123-9, 35965-4 ####[facility] LABORATORYCLIA [id number] [place] [address] [place] AST [Catalytic activity/Vol] 36 U/L High 8-34 [facility] Comment on above: Order Comment: Speci men Type: BLOOD SPECIMENOrdering Facility: [facility] Address: [address] [place] [address] Result Comment: Resu lts may be falsely depressed after the administration of Sulfasalazine and/or Sulfapyridine. Performed By: #### 1 9123-9, 60721-0 ####[facility] LABORATORYCLIA [id number] [place] [address] [place] Bilirubin [Mass/Vol] 0.4 mg/dL Normal 0.2-1.0 [facility] Comment on above: Order Comment: Speci men Type: BLOOD SPECIMENOrdering Facility: [facility] Address: [address] [place] [address] Performed By: #### 1 9123-9, ####[facility] LABORATORYCLIA [id number] [place] [address] [place] Calcium [Mass/Vol] 8.7 mg/dL Normal 8.5-10.5 [facility] Comment on above: Order Comment: Speci men Type: BLOOD SPECIMENOrdering Facility: [facility] Address: [address] [place] [address] Performed By: #### 1 9123-9, ####[facility] LABORATORYCLIA [id number] [place] [address] [place] Chloride [Moles/Vol] 109 mmol/L High 98-107 [facility] Comment on above: Order Comment: Speci men Type: BLOOD SPECIMENOrdering Facility: [facility] Address: [address] [place] [address] Performed By: #### 1 9123-9, ####[facility] LABORATORYCLIA [id number] [place] [address] [place] CO2 [Moles/Vol] 24 mmol/L Normal 21-32 [facility] Comment on above: Order Comment: Speci men Type: BLOOD SPECIMENOrdering Facility: [facility] Address: [address] [place] [address] Performed By: #### 1 9123-9, ####[facility] LABORATORYCLIA [id number] [place] [id number] [place] Creatinine [Mass/Vol] 1.88 mg/dL High 0.51-0.95 [facility] Comment on above: Order Comment: Speci men Type: BLOOD SPECIMENOrdering Facility: [facility] Address: [address] [place] [address] Result Comment: Mayda ents receiving either N-Acetylcysteine (NAC) or Metamizole prior to venipuncture, may have falsely depressed results. Performed By: #### 1 9123-9, 44534-6 ####[facility] LABORATORYCLIA [id number] [place] [id number] [place] Creatinine and Glomerular filtration rate.predicted panel (S/P/Bld) 28 mL/min/1.73m??? Low >=60 [facility] Comment on above: Order Comment: Abdon lyles Type: BLOOD SPECIMENOrdering Facility: [facility] Address: [address] [place] [address] Result Comment: Judith mated Glomerular Filtration Rate (eGFR) is calculated using the 2020 CKD-EPI creatinine equation. This equation utilizes serum creatinine, sex, and age as parameters. The creatinine assay has traceable calibration to isotope dilution-mass spectrometry. Refer to KDIGO guidelines for clinical interpretation. In patients with unstable renal function, e.g. those with acute kidney injury, the eGFR may not accurately reflect actual GFR. Performed By: #### 1 9123-9, 07504-7 ####[facility] LABORATORYCLIA [id number] [place] [address] [place] Glucose [Mass/Vol] 90 mg/dL Normal 70-100 [facility] Comment on above: Order Comment: Abdon lyles Type: BLOOD SPECIMENOrdering Facility: [facility] Address: [address] [place] [address] Result Comment: The [place] [employer] (ADA) provides guidance for cutoff values for fasting glucose and random glucose. The ADA defines fasting as no caloric intake for at least 8 hours. Fasting plasma glucose results between 100 to 125 mg/dL indicate increased risk for diabetes (prediabetes).Fasting plasma glucose results greater than or equal to 126 mg/dL meet the criteria for diagnosis of diabetes. In the absence of unequivocal hyperglycemia, results should be confirmed by repeat testing. In a patient with classic symptoms of hyperglycemia or hyperglycemic crisis, random plasma glucose results greater than or equal to 200 mg/dL meet the criteria for diagnosis of diabetes.Reference: Standards of Medical Care in Diabetes 2016, [place] [employer]. Diabetes Care. 2016.39(Suppl 1).Results may be falsely elevated after the administration of Sulfapyridine.Results may be falsely depressed after the administration of Sulfasalazine. Performed By: #### 1 9123-9, 04704-2 ####[facility] LABORATORYCLIA [id number] [place] [id number] [place] Potassium [Moles/Vol] 4.0 mmol/L Normal 3.5-5.1 [facility] Comment on above: Order Comment: Speci men Type: BLOOD SPECIMENOrdering Facility: [facility] Address: [address] [place] [address] Performed By: #### 1 9123-9, ####[facility] LABORATORYCLIA [id number] [place] [address] [place] Protein [Mass/Vol] 6.7 g/dL Normal 6.0-8.5 [facility] Comment on above: Order Comment: Speci men Type: BLOOD SPECIMENOrdering Facility: [facility] Address: [address] [place] [address] Performed By: #### 1 9123-9, ####[facility] LABORATORYCLIA [id number] [place] [address] [place] Sodium [Moles/Vol] 140 mmol/L Normal 136-145 [facility] Comment on above: Order Comment: Speci men Type: BLOOD SPECIMENOrdering Facility: [facility] Address: [address] [place] [address] Performed By: #### 1 9123-9, 48061-0 ####[facility] LABORATORYCLIA [id number] [place] [id number] [place] Urea nitrogen [Mass/Vol] 25 mg/dL Normal 7-26 [facility] Comment on above: Order Comment: Speci men Type: BLOOD SPECIMENOrdering Facility: [facility] Address: [address] [place] [address] Performed By: #### 1 9123-9, 69309-7 ####[facility] LABORATORYCLIA [id number] [place] [id number] [place] Magnesium SerPl-mCncon 01-16 Magnesium [Mass/Vol] 1.9 mg/dL Normal 1.6-2.6 [facility] Comment on above: Order Comment: Speci men Type: BLOOD SPECIMENOrdering Facility: [facility] Address: [address] [place] [address] Performed By: #### 1 9123-9, 90920-1 ####[facility] LABORATORYCLIA [id number] [place] [id number] [place] ALLIED HEALTHon 01-15-2025 ALLIED HEALTH Normal [facility] CASE MGT INIT ASSESon 2024 CASE MGT INIT [facility] CBC panel Auto (Bld)on 01-15 Erythrocyte distribution width (RBC) [Ratio] 13.4 % Normal 11.5-15.0 [facility] Comment on above: Order Comment: Speci men Type: BLOOD SPECIMENOrdering Facility: [facility] Address: [address] [place] [address] Performed By: #### 5 8410-2 ####[facility] LABORATORYCLIA [id number] [place] [id number] [place] Hematocrit (Bld) [Volume fraction] 36.7 % Normal 36.0-46.0 [facility] Comment on above: Order Comment: Speci men Type: BLOOD SPECIMENOrdering Facility: [facility] Address: [address] [place] [address] Performed By: #### 5 8410-2 ####[facility] LABORATORYCLIA [id number] [place] [place] [id number] [place] Hemoglobin (Bld) [Mass/Vol] 11.8 g/dL Normal 11.5-15.5 [facility] Comment on above: Order Comment: Speci men Type: BLOOD SPECIMENOrdering Facility: [facility] Address: [address] [place] [address] Performed By: #### 5 8410-2 ####[facility] LABORATORYCLIA [id number] [address] MCH (RBC) [Entitic mass] 28.9 pg Normal 26.0-34.0 [facility] Comment on above: Order Comment: Speci men Type: BLOOD SPECIMENOrdering Facility: [facility] Address: [address] [place] [address] Performed By: #### 5 8410-2 ####[facility] LABORATORYCLIA [id number] [address] [place] MCHC (RBC) [Mass/Vol] 32.2 g/dL Normal 30.5-36.0 [facility] Comment on above: Order Comment: Speci men Type: BLOOD SPECIMENOrdering Facility: [facility] Address: [address] [place] [address] Performed By: #### 5 8410-2 ####[facility] LABORATORYCLIA [id number] [address] [place] MCV (RBC) [Entitic vol] 90.0 fL Normal 80.0-100.0 M [facility] Comment on above: Order Comment: Speci men Type: BLOOD SPECIMENOrdering Facility: [facility] Address: [address] [place] [address] Performed By: #### 5 8410-2 ####[facility] LABORATORYCLIA [id number] [address] [place] Nucleated RBC (Bld) [#/Vol] 10*3/uL Normal <0.01 [facility] Comment on above: Order Comment: Speci men Type: BLOOD SPECIMENOrdering Facility: [facility] Address: [address] [place] [address] Performed By: #### 5 8410-2 ####[facility] LABORATORYCLIA [id number] [address] [place] Platelet mean volume (Bld) [Entitic vol] 9.9 fL Normal 9.0-12.7 [facility] Comment on above: Order Comment: Speci men Type: BLOOD SPECIMENOrdering Facility: [facility] Address: [address] [place] [address] Performed By: #### 5 8410-2 ####[facility] LABORATORYCLIA [id number] [place] [id number] [facility] [place] Platelets (Bld) [#/Vol] 259 10*3/uL Normal 150-400 [facility] Comment on above: Order Comment: Speci men Type: BLOOD SPECIMENOrdering Facility: [facility] Address: [address] [place] [address] Performed By: #### 5 8410-2 ####[facility] LABORATORYCLIA [id number] [place] [id number] [place] RBC (Bld) [#/Vol] 4.08 10*6/uL Normal 3.90-5.20 [facility] Comment on above: Order Comment: Speci men Type: BLOOD SPECIMENOrdering Facility: [facility] Address: [address] [place] [address] Performed By: #### 5 8410-2 ####[facility] LABORATORYCLIA [id number] [address] [place] WBC (Bld) [#/Vol] 8.40 10*3/uL Normal 3.70-11.00 [facility] Comment on above: Order Comment: Speci men Type: BLOOD SPECIMENOrdering Facility: [facility] Address: [address] [place] [address] Performed By: #### 5 8410-2 ####[facility] LABORATORYCLIA [id number] [place] [id number] [facility] [place] CONSULT PROGon 01-15-2025 CONSULT PROG Normal [facility] Comprehensive metabolic 2000 panelon 01-15-2025 Albumin [Mass/Vol] 2.5 g/dL Low 3.2-5.0 [facility] Comment on above: Order Comment: Speci men Type: BLOOD SPECIMENOrdering Facility: [facility] Address: [address] [place] [address] Performed By: #### 1 9123-9, 47578-1 ####[facility] LABORATORYCLIA [id number] [place] [address] [place] ALP [Catalytic activity/Vol] 120 U/L High 45-117 [facility] Comment on above: Order Comment: Speci men Type: BLOOD SPECIMENOrdering Facility: [facility] Address: [address] [place] [address] Performed By: #### 1 9123-9, 33475-5 ####[facility] LABORATORYCLIA [id number] [place] [address] [place] ALT [Catalytic activity/Vol] 18 U/L Normal 13-61 [facility] Comment on above: Order Comment: Speci men Type: BLOOD SPECIMENOrdering Facility: [facility] Address: [address] [place] [address] Result Comment: Resu lts may be falsely depressed after the administration of Sulfasalazine and/or Sulfapyridine. Performed By: #### 1 9123-9, 49409-4 ####[facility] LABORATORYCLIA [id number] [place] [address] [place] Anion gap [Moles/Vol] 10 mmol/L Normal 5-16 [facility] Comment on above: Order Comment: Speci men Type: BLOOD SPECIMENOrdering Facility: [facility] Address: [address] [place] [address] Performed By: #### 1 9123-9, 86107-5 ####[facility] LABORATORYCLIA [id number] [place] [address] [place] AST [Catalytic activity/Vol] 39 U/L High 8-34 [facility] Comment on above: Order Comment: Speci men Type: BLOOD SPECIMENOrdering Facility: [facility] Address: [address] [place] [address] Result Comment: Resu lts may be falsely depressed after the administration of Sulfasalazine and/or Sulfapyridine. Performed By: #### 1 9123, ####[facility] LABORATORYCLIA [id number] [place] [id number] [place] Bilirubin [Mass/Vol] 0.4 mg/dL Normal 0.2-1.0 [facility] Comment on above: Order Comment: Speci men Type: BLOOD SPECIMENOrdering Facility: [facility] Address: [address] [place] [address] Performed By: #### 1 239, ####[facility] LABORATORYCLIA [id number] [place] [address] [place] Calcium [Mass/Vol] 9.0 mg/dL Normal 8.5-10.5 [facility] Comment on above: Order Comment: Speci men Type: BLOOD SPECIMENOrdering Facility: [facility] Address: [address] [place] [address] Performed By: #### 1 239, ####[facility] LABORATORYCLIA [id number] [place] [address] [place] Chloride [Moles/Vol] 107 mmol/L Normal 98-107 [facility] Comment on above: Order Comment: Speci men Type: BLOOD SPECIMENOrdering Facility: [facility] Address: [address] [place] [address] Performed By: #### 1 239, ####[facility] LABORATORYCLIA [id number] [place] [address] [place] CO2 [Moles/Vol] 22 mmol/L Normal 21-32 [facility] Comment on above: Order Comment: Speci men Type: BLOOD SPECIMENOrdering Facility: [facility] Address: [address] [place] [address] Performed By: #### 1 9123-9, ####[facility] LABORATORYCLIA [id number] [place] [address] [place] Creatinine [Mass/Vol] 1.93 mg/dL High 0.51-0.95 [facility] Comment on above: Order Comment: Speci men Type: BLOOD SPECIMENOrdering Facility: [facility] Address: [address] [place] [address] Result Comment: Mayda ents receiving either N-Acetylcysteine (NAC) or Metamizole prior to venipuncture, may have falsely depressed results. Performed By: #### 1 9123-9, 97785-4 ####[facility] LABORATORYCLIA [id number] [place] [address] [place] Creatinine and Glomerular filtration rate.predicted panel (S/P/Bld) 27 mL/min/1.73m??? Low >=60 [facility] Comment on above: Order Comment: Abdon lyles Type: BLOOD SPECIMENOrdering Facility: [facility] Address: [address] [place] [address] Result Comment: Judith mated Glomerular Filtration Rate (eGFR) is calculated using the 2020 CKD-EPI creatinine equation. This equation utilizes serum creatinine, sex, and age as parameters. The creatinine assay has traceable calibration to isotope dilution-mass spectrometry. Refer to KDIGO guidelines for clinical interpretation. In patients with unstable renal function, e.g. those with acute kidney injury, the eGFR may not accurately reflect actual GFR. Performed By: #### 1 9123-9, 31243-4 ####[facility] LABORATORYCLIA [id number] [place] [address] [place] Glucose [Mass/Vol] 73 mg/dL Normal 70-100 [facility] Comment on above: Order Comment: Abdon lyles Type: BLOOD SPECIMENOrdering Facility: [facility] Address: [address] [place] [address] Result Comment: The [place] Diabetes [employer] (ADA) provides guidance for cutoff values for fasting glucose and random glucose. The ADA defines fasting as no caloric intake for at least 8 hours. Fasting plasma glucose results between 100 to 125 mg/dL indicate increased risk for diabetes (prediabetes).Fasting plasma glucose results greater than or equal to 126 mg/dL meet the criteria for diagnosis of diabetes. In the absence of unequivocal hyperglycemia, results should be confirmed by repeat testing. In a patient with classic symptoms of hyperglycemia or hyperglycemic crisis, random plasma glucose results greater than or equal to 200 mg/dL meet the criteria for diagnosis of diabetes.Reference: Standards of Medical Care in Diabetes 2016, [place] [employer]. Diabetes Care. 2016.39(Suppl 1).Results may be falsely elevated after the administration of Sulfapyridine.Results may be falsely depressed after the administration of Sulfasalazine. Performed By: #### 1 9123-9, 82879-5 ####[facility] LABORATORYCLIA [id number] [place] [address] [place] Potassium [Moles/Vol] 4.0 mmol/L Normal 3.5-5.1 [facility] Comment on above: Order Comment: Speci men Type: BLOOD SPECIMENOrdering Facility: [facility] Address: [address] [place] [address] Performed By: #### 1 9123-9, ####[facility] LABORATORYCLIA [id number] [place] [address] [place] Protein [Mass/Vol] 6.5 g/dL Normal 6.0-8.5 [facility] Comment on above: Order Comment: Speci men Type: BLOOD SPECIMENOrdering Facility: [facility] Address: [address] [place] [address] Performed By: #### 1 9123-9, ####[facility] LABORATORYCLIA [id number] [place] [address] [place] Sodium [Moles/Vol] 139 mmol/L Normal 136-145 [facility] Comment on above: Order Comment: Speci men Type: BLOOD SPECIMENOrdering Facility: [facility] Address: [address] [place] [address] Performed By: #### 1 9123-9, 18876-4 ####[facility] LABORATORYCLIA [id number] [place] [address] [place] Urea nitrogen [Mass/Vol] 25 mg/dL Normal 7-26 [facility] Comment on above: Order Comment: Speci men Type: BLOOD SPECIMENOrdering Facility: [facility] Address: [address] [place] [address] Performed By: #### 1 9123-9, 71167-4 ####[facility] LABORATORYCLIA [id number] [place] [address] [place] Magnesium SerPl-mCncon 01-15 Magnesium [Mass/Vol] 1.9 mg/dL Normal 1.6-2.6 [facility] Comment on above: Order Comment: Speci men Type: BLOOD SPECIMENOrdering Facility: [facility] Address: [address] [place] [address] Performed By: #### 1 9123-9, 62143-4 ####[facility] LABORATORYCLIA [id number] [place] [address] [facility] [place] THERAPY NTon 01-15-2025 THERAPY NT Normal [facility] Basic metabolic 2000 panelon 01-14-2025 Anion gap [Moles/Vol] 9 mmol/L Normal 5-16 [facility] Comment on above: Order Comment: Speci men Type: BLOOD SPECIMENOrdering Facility: [facility] Address: [address] [place] [address] Performed By: #### 2 4321-2 ####[facility] LABORATORYCLIA [id number] [place] [address] [place] Calcium [Mass/Vol] 8.6 mg/dL Normal 8.5-10.5 [facility] Comment on above: Order Comment: Speci men Type: BLOOD SPECIMENOrdering Facility: [facility] Address: [address] [place] [address] Performed By: #### 2 4321-2 ####[facility] LABORATORYCLIA [id number] [place] [address] [place] Chloride [Moles/Vol] 104 mmol/L Normal 98-107 [facility] Comment on above: Order Comment: Speci men Type: BLOOD SPECIMENOrdering Facility: [facility] Address: [address] [place] [address] Performed By: #### 2 4321-2 ####[facility] LABORATORYCLIA [id number] [place] [address] [place] CO2 [Moles/Vol] 22 mmol/L Normal 21-32 [facility] Comment on above: Order Comment: Abdon lyles Type: BLOOD SPECIMENOrdering Facility: [facility] Address: [address] [place] [address] Performed By: #### 2 4321-2 ####[facility] LABORATORYCLIA [id number] [address] OF [facility] Creatinine [Mass/Vol] 2.15 mg/dL High 0.51-0.95 [facility] Comment on above: Order Comment: Speci men Type: BLOOD SPECIMENOrdering Facility: [facility] Address: [address] [place] [address] Result Comment: Mayda ents receiving either N-Acetylcysteine (NAC) or Metamizole prior to venipuncture, may have falsely depressed results. Performed By: #### 2 4321-2 ####[facility] LABORATORYCLIA [id number] [address] Creatinine and Glomerular filtration rate.predicted panel (S/P/Bld) 24 mL/min/1.73m??? Low >=60 [facility] Comment on above: Order Comment: Abdon lyles Type: BLOOD SPECIMENOrdering Facility: [facility] Address: [address] [place] [address] Result Comment: Judith mated Glomerular Filtration Rate (eGFR) is calculated using the 2020 CKD-EPI creatinine equation. This equation utilizes serum creatinine, sex, and age as parameters. The creatinine assay has traceable calibration to isotope dilution-mass spectrometry. Refer to KDIGO guidelines for clinical interpretation. In patients with unstable renal function, e.g. those with acute kidney injury, the eGFR may not accurately reflect actual GFR. Performed By: #### 2 4321-2 ####[facility] LABORATORYCLIA [id number] [address] OF [facility] Glucose [Mass/Vol] 83 mg/dL Normal 70-100 [facility] Comment on above: Order Comment: Abdon lyles Type: BLOOD SPECIMENOrdering Facility: [facility] Address: [address] [place] [address] Result Comment: The [place] Diabetes [employer] (ADA) provides guidance for cutoff values for fasting glucose and random glucose. The ADA defines fasting as no caloric intake for at least 8 hours. Fasting plasma glucose results between 100 to 125 mg/dL indicate increased risk for diabetes (prediabetes).Fasting plasma glucose results greater than or equal to 126 mg/dL meet the criteria for diagnosis of diabetes. In the absence of unequivocal hyperglycemia, results should be confirmed by repeat testing. In a patient with classic symptoms of hyperglycemia or hyperglycemic crisis, random plasma glucose results greater than or equal to 200 mg/dL meet the criteria for diagnosis of diabetes.Reference: Standards of Medical Care in Diabetes 2016, [place] [employer]. Diabetes Care. 2016.39(Suppl 1).Results may be falsely elevated after the administration of Sulfapyridine.Results may be falsely depressed after the administration of Sulfasalazine. Performed By: #### 2 4321-2 ####[facility] LABORATORYCLIA [id number] [place] [address] [place] Potassium [Moles/Vol] 4.1 mmol/L Normal 3.5-5.1 [facility] Comment on above: Order Comment: Speci men Type: BLOOD SPECIMENOrdering Facility: [facility] Address: [address] [place] [address] Performed By: #### 2 4321-2 ####[facility] LABORATORYCLIA [id number] [place] [address] [place] Sodium [Moles/Vol] 135 mmol/L Low 136-145 [facility] Comment on above: Order Comment: Speci men Type: BLOOD SPECIMENOrdering Facility: [facility] Address: [address] [place] [place] [id number] Performed By: #### 2 4321-2 ####[facility] LABORATORYCLIA [id number] [place] [address] [place] Urea nitrogen [Mass/Vol] 29 mg/dL High 7-26 [facility] Comment on above: Order Comment: Speci men Type: BLOOD SPECIMENOrdering Facility: [facility] Address: [address] [place] [id number] Performed By: #### 2 4321-2 ####[facility] LABORATORYCLIA [id number] [place] [id number] [place] CBC W Auto Differential pane l (Bld)on 01-14-2025 Basophils (Bld) [#/Vol] 0.05 10*3/uL Normal <0.11 [facility] Comment on above: Order Comment: Speci men Type: BLOOD SPECIMENOrdering Facility: [facility] Address: [address] [place] [address] Performed By: #### 5 7021-8 ####[facility] LABORATORYCLIA [id number] [place] [address] [place] Basophils/100 WBC (Bld) 0.5 % Normal [facility] Comment on above: Order Comment: Speci men Type: BLOOD SPECIMENOrdering Facility: [facility] Address: [address] [place] [address] Performed By: #### 5 7021-8 ####[facility] LABORATORYCLIA [id number] [address] OF [facility] Differential cell count method Nom (Bld) Auto Normal [facility] Comment on above: Order Comment: Speci men Type: BLOOD SPECIMENOrdering Facility: [facility] Address: [address] [place] [address] Performed By: #### 5 7021-8 ####[facility] LABORATORYCLIA [id number] [place] [address] [place] Eosinophils (Bld) [#/Vol] 0.06 10*3/uL Normal <0.46 [facility] Comment on above: Order Comment: Speci men Type: BLOOD SPECIMENOrdering Facility: [facility] Address: [address] [place] [address] Performed By: #### 5 7021-8 ####[facility] LABORATORYCLIA [id number] [place] [address] [place] Eosinophils/100 WBC (Bld) 0.6 % Normal [facility] Comment on above: Order Comment: Speci men Type: BLOOD SPECIMENOrdering Facility: [facility] Address: [address] [place] [address] Performed By: #### 5 7021-8 ####[facility] LABORATORYCLIA [id number] [address] [place] Erythrocyte distribution width (RBC) [Ratio] 13.4 % Normal 11.5-15.0 [facility] Comment on above: Order Comment: Speci men Type: BLOOD SPECIMENOrdering Facility: [facility] Address: [address] [place] [address] Performed By: #### 5 7021-8 ####[facility] LABORATORYCLIA [id number] [address] [place] Hematocrit (Bld) [Volume fraction] 37.5 % Normal 36.0-46.0 [facility] Comment on above: Order Comment: Speci men Type: BLOOD SPECIMENOrdering Facility: [facility] Address: [address] [place] [address] Performed By: #### 5 7021-8 ####[facility] LABORATORYCLIA [id number] [place] [address] [place] Hemoglobin (Bld) [Mass/Vol] 12.4 g/dL Normal 11.5-15.5 [facility] Comment on above: Order Comment: Speci men Type: BLOOD SPECIMENOrdering Facility: [facility] Address: [address] [place] [address] Performed By: #### 5 7021-8 ####[facility] LABORATORYCLIA [id number] [place] [address] [place] Immature granulocytes (Bld) [#/Vol] 0.05 10*3/uL Normal <0.10 [facility] Comment on above: Order Comment: Speci men Type: BLOOD SPECIMENOrdering Facility: [facility] Address: [address] [place] [address] Performed By: #### 5 7021-8 ####[facility] LABORATORYCLIA [id number] [address] Immature granulocytes/100 WBC (Bld) 0.5 % Normal [facility] Comment on above: Order Comment: Speci men Type: BLOOD SPECIMENOrdering Facility: [facility] Address: [address] [place] [address] Performed By: #### 5 7021-8 ####[facility] LABORATORYCLIA [id number] [place] [address] [facility] [place] Lymphocytes (Bld) [#/Vol] 3.16 10*3/uL Normal 1.00-4.00 [facility] Comment on above: Order Comment: Speci men Type: BLOOD SPECIMENOrdering Facility: [facility] Address: [address] [place] [address] Performed By: #### 5 7021-8 ####[facility] LABORATORYCLIA [id number] [address] Lymphocytes/100 WBC (Bld) 33.5 % Normal [facility] Comment on above: Order Comment: Speci men Type: BLOOD SPECIMENOrdering Facility: [facility] Address: [address] [place] [address] Performed By: #### 5 7021-8 ####[facility] LABORATORYCLIA [id number] [address] [place] MCH (RBC) [Entitic mass] 29.2 pg Normal 26.0-34.0 [facility] Comment on above: Order Comment: Speci men Type: BLOOD SPECIMENOrdering Facility: [facility] Address: [address] [place] [address] Performed By: #### 5 7021-8 ####[facility] LABORATORYCLIA [id number] [address] [place] MCHC (RBC) [Mass/Vol] 33.1 g/dL Normal 30.5-36.0 [facility] Comment on above: Order Comment: Speci men Type: BLOOD SPECIMENOrdering Facility: [facility] Address: [address] [place] [address] Performed By: #### 5 7021-8 ####[facility] LABORATORYCLIA [id number] [place] [address] [place] MCV (RBC) [Entitic vol] 88.4 fL Normal 80.0-100.0 [facility] Comment on above: Order Comment: Speci men Type: BLOOD SPECIMENOrdering Facility: [facility] Address: [address] [place] [address] Performed By: #### 5 7021-8 ####[facility] LABORATORYCLIA [id number] [place] [address] [place] Monocytes (Bld) [#/Vol] 1.02 10*3/uL High <0.87 [facility] Comment on above: Order Comment: Speci men Type: BLOOD SPECIMENOrdering Facility: [facility] Address: [address] [place] [address] Performed By: #### 5 7021-8 ####[facility] LABORATORYCLIA [id number] [address] [place] Monocytes/100 WBC (Bld) 10.8 % Normal [facility] Comment on above: Order Comment: Speci men Type: BLOOD SPECIMENOrdering Facility: [facility] Address: [address] [place] [address] Performed By: #### 5 7021-8 ####[facility] LABORATORYCLIA [id number] [place] [address] [place] Neutrophils (Bld) [#/Vol] 5.09 10*3/uL Normal 1.45-7.50 [facility] Comment on above: Order Comment: Speci men Type: BLOOD SPECIMENOrdering Facility: [facility] Address: [address] [place] [address] Performed By: #### 5 7021-8 ####[facility] LABORATORYCLIA [id number] [place] [address] [place] Neutrophils/100 WBC (Bld) 54.1 % Normal [facility] Comment on above: Order Comment: Speci men Type: BLOOD SPECIMENOrdering Facility: [facility] Address: [address] [place] [address] Performed By: #### 5 7021-8 ####[facility] LABORATORYCLIA [id number] [place] [id number] [place] Nucleated RBC (Bld) [#/Vol] 10*3/uL Normal <0.01 [facility] Comment on above: Order Comment: Speci men Type: BLOOD SPECIMENOrdering Facility: [facility] Address: [address] [place] [address] Performed By: #### 5 7021-8 ####[facility] LABORATORYCLIA [id number] [place] [id number] [place] Nucleated RBC/100 WBC (Bld) [Ratio] 0.0 /100 WBC Normal [facility] Comment on above: Order Comment: Speci men Type: BLOOD SPECIMENOrdering Facility: [facility] Address: [address] [place] [address] Performed By: #### 5 7021-8 ####[facility] LABORATORYCLIA [id number] [place] [address] [place] Platelet mean volume (Bld) [Entitic vol] 9.6 fL Normal 9.0-12.7 [facility] Comment on above: Order Comment: Speci men Type: BLOOD SPECIMENOrdering Facility: [facility] Address: [address] [place] [address] Performed By: #### 5 7021-8 ####[facility] LABORATORYCLIA [id number] [place] [address] [place] Platelets (Bld) [#/Vol] 263 10*3/uL Normal 150-400 [facility] Comment on above: Order Comment: Speci men Type: BLOOD SPECIMENOrdering Facility: [facility] Address: [address] [place] [address] Performed By: #### 5 7021-8 ####[facility] LABORATORYCLIA [id number] [place] [id number] [place] RBC (Bld) [#/Vol] 4.24 10*6/uL Normal 3.90-5.20 [facility] Comment on above: Order Comment: Speci men Type: BLOOD SPECIMENOrdering Facility: [facility] Address: [address] [place] [address] Performed By: #### 5 7021-8 ####[facility] LABORATORYCLIA [id number] [place] [address] [place] WBC (Bld) [#/Vol] 9.43 10*3/uL Normal 3.70-11.00 [facility] Comment on above: Order Comment: Speci men Type: BLOOD SPECIMENOrdering Facility: [facility] Address: [address] [place] [address] Performed By: #### 5 7021-8 ####[facility] LABORATORYCLIA [id number] [place] [address] [place] CONSULTon 01-14-2025 CONSULT Normal [facility] THERAPY NTon 01-14-2025 THERAPY NT Normal [facility] Bacteria Ur Culton Bacteria identified Cx Nom (U) Abnormal [facility] Comment on above: Performed By: #### 6 30-4, 47744-4 ####[facility] LABORATORYCLIA [id number] [address] [place] CBC W Auto Differential pane l (Bld)on 01-13-2025 Basophils (Bld) [#/Vol] 0.03 10*3/uL Normal <0.11 [facility] Comment on above: Order Comment: Speci men Type: BLOOD SPECIMENOrdering Facility: [facility] Address: [address] [place] [address] Performed By: #### 5 7021-8 ####[facility] LABORATORYCLIA [id number] [address] [place] Basophils/100 WBC (Bld) 0.3 % Normal [facility] Comment on above: Order Comment: Speci men Type: BLOOD SPECIMENOrdering Facility: [facility] Address: [address] [place] [address] Performed By: #### 5 7021-8 ####[facility] LABORATORYCLIA [id number] [place] [address] [place] Differential cell count method Nom (Bld) Auto Normal [facility] Comment on above: Order Comment: Speci men Type: BLOOD SPECIMENOrdering Facility: [facility] Address: [address] [place] [address] Performed By: #### 5 7021-8 ####[facility] LABORATORYCLIA [id number] [place] [address] [place] Eosinophils (Bld) [#/Vol] 10*3/uL Normal <0.46 [facility] Comment on above: Order Comment: Speci men Type: BLOOD SPECIMENOrdering Facility: [facility] Address: [address] [place] [address] Performed By: #### 5 7021-8 ####[facility] LABORATORYCLIA [id number] [address] [place] Eosinophils/100 WBC (Bld) 0.1 % Normal [facility] Comment on above: Order Comment: Speci men Type: BLOOD SPECIMENOrdering Facility: [facility] Address: [address] [place] [address] Performed By: #### 5 7021-8 ####[facility] LABORATORYCLIA [id number] [address] [place] Erythrocyte distribution width (RBC) [Ratio] 13.6 % Normal 11.5-15.0 [facility] Comment on above: Order Comment: Speci men Type: BLOOD SPECIMENOrdering Facility: [facility] Address: [address] [place] [address] Performed By: #### 5 7021-8 ####[facility] LABORATORYCLIA [id number] [address] [place] Hematocrit (Bld) [Volume fraction] 39.1 % Normal 36.0-46.0 [facility] Comment on above: Order Comment: Speci men Type: BLOOD SPECIMENOrdering Facility: [facility] Address: [address] [place] [address] Performed By: #### 5 7021-8 ####[facility] LABORATORYCLIA [id number] [place] [id number] [place] Hemoglobin (Bld) [Mass/Vol] 12.9 g/dL Normal 11.5-15.5 [facility] Comment on above: Order Comment: Speci men Type: BLOOD SPECIMENOrdering Facility: [facility] Address: [address] [place] [address] Performed By: #### 5 7021-8 ####[facility] LABORATORYCLIA [id number] [place] [address] [place] Immature granulocytes (Bld) [#/Vol] 0.08 10*3/uL Normal <0.10 [facility] Comment on above: Order Comment: Speci men Type: BLOOD SPECIMENOrdering Facility: [facility] Address: [address] [place] [address] Performed By: #### 5 7021-8 ####[facility] LABORATORYCLIA [id number] [place] [address] [place] Immature granulocytes/100 WBC (Bld) 0.7 % Normal [facility] Comment on above: Order Comment: Speci men Type: BLOOD SPECIMENOrdering Facility: [facility] Address: [address] [place] [address] Performed By: #### 5 7021-8 ####[facility] LABORATORYCLIA [id number] [place] [address] [place] Lymphocytes (Bld) [#/Vol] 2.97 10*3/uL Normal 1.00-4.00 [facility] Comment on above: Order Comment: Speci men Type: BLOOD SPECIMENOrdering Facility: [facility] Address: [address] [place] [address] Performed By: #### 5 7021-8 ####[facility] LABORATORYCLIA [id number] [place] [address] [place] Lymphocytes/100 WBC (Bld) 25.1 % Normal [facility] Comment on above: Order Comment: Speci men Type: BLOOD SPECIMENOrdering Facility: [facility] Address: [address] [place] [address] Performed By: #### 5 7021-8 ####[facility] LABORATORYCLIA [id number] [address] [place] MCH (RBC) [Entitic mass] 29.0 pg Normal 26.0-34.0 [facility] Comment on above: Order Comment: Speci men Type: BLOOD SPECIMENOrdering Facility: [facility] Address: [address] [place] [address] Performed By: #### 5 7021-8 ####[facility] LABORATORYCLIA [id number] [address] [place] MCHC (RBC) [Mass/Vol] 33.0 g/dL Normal 30.5-36.0 [facility] Comment on above: Order Comment: Speci men Type: BLOOD SPECIMENOrdering Facility: [facility] Address: [address] [place] [address] Performed By: #### 5 7021-8 ####[facility] LABORATORYCLIA [id number] [place] [address] [place] MCV (RBC) [Entitic vol] 87.9 fL Normal 80.0-100.0 M [facility] Comment on above: Order Comment: Speci men Type: BLOOD SPECIMENOrdering Facility: [facility] Address: [address] [place] [address] Performed By: #### 5 7021-8 ####[facility] LABORATORYCLIA [id number] [place] [address] [place] Monocytes (Bld) [#/Vol] 1.04 10*3/uL High <0.87 [facility] Comment on above: Order Comment: Speci men Type: BLOOD SPECIMENOrdering Facility: [facility] Address: [address] [place] [address] Performed By: #### 5 7021-8 ####[facility] LABORATORYCLIA [id number] [place] [id number] [place] Monocytes/100 WBC (Bld) 8.8 % Normal [facility] Comment on above: Order Comment: Speci men Type: BLOOD SPECIMENOrdering Facility: [facility] Address: [address] [place] [address] Performed By: #### 5 7021-8 ####[facility] LABORATORYCLIA [id number] [place] [address] [place] Neutrophils (Bld) [#/Vol] 7.71 10*3/uL High 1.45-7.50 [facility] Comment on above: Order Comment: Speci men Type: BLOOD SPECIMENOrdering Facility: [facility] Address: [address] [place] [address] Performed By: #### 5 7021-8 ####[facility] LABORATORYCLIA [id number] [place] [address] [place] Neutrophils/100 WBC (Bld) 65.0 % Normal [facility] Comment on above: Order Comment: Speci men Type: BLOOD SPECIMENOrdering Facility: [facility] Address: [address] [place] [address] Performed By: #### 5 7021-8 ####[facility] LABORATORYCLIA [id number] [place] [address] [place] Nucleated RBC (Bld) [#/Vol] 10*3/uL Normal <0.01 [facility] Comment on above: Order Comment: Speci men Type: BLOOD SPECIMENOrdering Facility: [facility] Address: [address] [place] [address] Performed By: #### 5 7021-8 ####[facility] LABORATORYCLIA [id number] [place] [id number] [place] Nucleated RBC/100 WBC (Bld) [Ratio] 0.0 /100 WBC Normal [facility] Comment on above: Order Comment: Speci men Type: BLOOD SPECIMENOrdering Facility: [facility] Address: [address] [place] [address] Performed By: #### 5 7021-8 ####[facility] LABORATORYCLIA [id number] [place] [id number] [place] Platelet mean volume (Bld) [Entitic vol] 10.0 fL Normal 9.0-12.7 [facility] Comment on above: Order Comment: Speci men Type: BLOOD SPECIMENOrdering Facility: [facility] Address: [facility] [place] [id number] Performed By: #### 5 7021-8 ####[facility] LABORATORYCLIA [id number] [place] [id number] [place] Platelets (Bld) [#/Vol] 318 10*3/uL Normal 150-400 [facility] Comment on above: Order Comment: Speci men Type: BLOOD SPECIMENOrdering Facility: [facility] Address: [address] [place] [address] [place] [id number] Performed By: #### 5 7021-8 ####[facility] LABORATORYCLIA [id number] [place] [address] [place] RBC (Bld) [#/Vol] 4.45 10*6/uL Normal 3.90-5.20 [facility] Comment on above: Order Comment: Speci men Type: BLOOD SPECIMENOrdering Facility: [facility] Address: [facility] SHAHZADJose Antonio [place]CH[place] [id number] Performed By: #### 5 7021-8 ####[facility] LABORATORYCLIA [id number] [place] [id number] [place] WBC (Bld) [#/Vol] 11.84 10*3/uL High 3.70-11.00 [facility] Comment on above: Order Comment: Speci men Type: BLOOD SPECIMENOrdering Facility: [facility] Address: [facility] [place]ZADJose Antonio [place] [id number] Performed By: #### 5 7021-8 ####[facility] LABORATORYCLIA [id number] [place] [id number] [place] CNPNon 02-25-2025 CNPN Normal [facility] Comprehensive metabolic 2000 panelon 01-13-2025 Albumin [Mass/Vol] 3.0 g/dL Low 3.2-5.0 [facility] Comment on above: Order Comment: Speci men Type: BLOOD SPECIMENOrdering Facility: [facility] Address: [address] [place] [address] Performed By: #### 2 4323-8 ####[facility] LABORATORYCLIA [id number] [place] [id number] [place] ALP [Catalytic activity/Vol] 150 U/L High 45-117 [facility] Comment on above: Order Comment: Speci men Type: BLOOD SPECIMENOrdering Facility: [facility] Address: [address] [place] [address] Performed By: #### 2 4323-8 ####[facility] LABORATORYCLIA [id number] [place] [address] [place] ALT [Catalytic activity/Vol] 28 U/L Normal 13-61 [facility] Comment on above: Order Comment: Speci men Type: BLOOD SPECIMENOrdering Facility: [facility] Address: [address] [place] [address] Result Comment: Resu lts may be falsely depressed after the administration of Sulfasalazine and/or Sulfapyridine. Performed By: #### 2 4323-8 ####[facility] LABORATORYCLIA [id number] [place] [id number] [place] Anion gap [Moles/Vol] 10 mmol/L Normal 5-16 [facility] Comment on above: Order Comment: Speci men Type: BLOOD SPECIMENOrdering Facility: [facility] Address: [address] [place] [id number] Performed By: #### 2 4323-8 ####[facility] LABORATORYCLIA [id number] [address] [place] AST [Catalytic activity/Vol] 37 U/L High 8-34 [facility] Comment on above: Order Comment: Speci men Type: BLOOD SPECIMENOrdering Facility: [facility] Address: [address] [place] [address] Result Comment: Resu lts may be falsely depressed after the administration of Sulfasalazine and/or Sulfapyridine. Performed By: #### 2 4323-8 ####[facility] LABORATORYCLIA [id number] [place] [address] [place] Bilirubin [Mass/Vol] 0.4 mg/dL Normal 0.2-1.0 [facility] Comment on above: Order Comment: Speci men Type: BLOOD SPECIMENOrdering Facility: [facility] Address: [address] [place] [address] Performed By: #### 2 4323-8 ####[facility] LABORATORYCLIA [id number] [place] [address] [place] Calcium [Mass/Vol] 9.3 mg/dL Normal 8.5-10.5 [facility] Comment on above: Order Comment: Speci men Type: BLOOD SPECIMENOrdering Facility: [facility] Address: [address] [place] [address] Performed By: #### 2 4323-8 ####[facility] LABORATORYCLIA [id number] [place] [address] [place] Chloride [Moles/Vol] 100 mmol/L Normal 98-107 [facility] Comment on above: Order Comment: Speci men Type: BLOOD SPECIMENOrdering Facility: [facility] Address: [address] [place] [address] Performed By: #### 2 4323-8 ####[facility] LABORATORYCLIA [id number] [place] [address] [place] CO2 [Moles/Vol] 23 mmol/L Normal 21-32 [facility] Comment on above: Order Comment: Speci men Type: BLOOD SPECIMENOrdering Facility: [facility] Address: [address] [place] [address] Performed By: #### 2 4323-8 ####[facility] LABORATORYCLIA [id number] [place] [address] [place] Creatinine [Mass/Vol] 2.42 mg/dL High 0.51-0.95 [facility] Comment on above: Order Comment: Abdon lyles Type: BLOOD SPECIMENOrdering Facility: [facility] Address: [address] [place] [address] Result Comment: Mayda ents receiving either N-Acetylcysteine (NAC) or Metamizole prior to venipuncture, may have falsely depressed results. Performed By: #### 2 4323-8 ####[facility] LABORATORYCLIA [id number] [place] [address] [place] Creatinine and Glomerular filtration rate.predicted panel (S/P/Bld) 21 mL/min/1.73m??? Low >=60 [facility] Comment on above: Order Comment: Abdon lyles Type: BLOOD SPECIMENOrdering Facility: [facility] Address: [address] [place] [address] Result Comment: Judith mated Glomerular Filtration Rate (eGFR) is calculated using the 2020 CKD-EPI creatinine equation. This equation utilizes serum creatinine, sex, and age as parameters. The creatinine assay has traceable calibration to isotope dilution-mass spectrometry. Refer to KDIGO guidelines for clinical interpretation. In patients with unstable renal function, e.g. those with acute kidney injury, the eGFR may not accurately reflect actual GFR. Performed By: #### 2 4323-8 ####[facility] LABORATORYCLIA [id number] [place] [address] [place] Glucose [Mass/Vol] 98 mg/dL Normal 70-100 [facility] Comment on above: Order Comment: Abdon lyles Type: BLOOD SPECIMENOrdering Facility: [facility] Address: [address] [place] [address] Result Comment: The [place] [employer] (ADA) provides guidance for cutoff values for fasting glucose and random glucose. The ADA defines fasting as no caloric intake for at least 8 hours. Fasting plasma glucose results between 100 to 125 mg/dL indicate increased risk for diabetes (prediabetes).Fasting plasma glucose results greater than or equal to 126 mg/dL meet the criteria for diagnosis of diabetes. In the absence of unequivocal hyperglycemia, results should be confirmed by repeat testing. In a patient with classic symptoms of hyperglycemia or hyperglycemic crisis, random plasma glucose results greater than or equal to 200 mg/dL meet the criteria for diagnosis of diabetes.Reference: Standards of Medical Care in Diabetes 2016, [place] [employer]. Diabetes Care. 2016.39(Suppl 1).Results may be falsely elevated after the administration of Sulfapyridine.Results may be falsely depressed after the administration of Sulfasalazine. Performed By: #### 2 4323-8 ####[facility] LABORATORYCLIA [id number] [place] [address] [place] Potassium [Moles/Vol] 4.3 mmol/L Normal 3.5-5.1 [facility] Comment on above: Order Comment: Speci men Type: BLOOD SPECIMENOrdering Facility: [facility] Address: [address] [place] [address] Performed By: #### 2 4323-8 ####[facility] LABORATORYCLIA [id number] [place] [address] [place] Protein [Mass/Vol] 7.5 g/dL Normal 6.0-8.5 [facility] Comment on above: Order Comment: Speci men Type: BLOOD SPECIMENOrdering Facility: [facility] Address: [address] [place] [address] Performed By: #### 2 4323-8 ####[facility] LABORATORYCLIA [id number] [place] [id number] [place] Sodium [Moles/Vol] 133 mmol/L Low 136-145 [facility] Comment on above: Order Comment: Speci men Type: BLOOD SPECIMENOrdering Facility: [facility] Address: [address] [place] [address] Performed By: #### 2 4323-8 ####[facility] LABORATORYCLIA [id number] [place] [id number] [place] Urea nitrogen [Mass/Vol] 31 mg/dL High 7-26 [facility] Comment on above: Order Comment: Speci men Type: BLOOD SPECIMENOrdering Facility: [facility] Address: [address] [place] [address] Performed By: #### 2 4323-8 ####[facility] LABORATORYCLIA [id number] [place] [id number] [place] ECG COMPLETEon 01-13-2025 ECG COMPLETE Normal [facility] ED PROV NOTEon 01-13-2025 ED PROV NOTE Normal [facility] HIGH SENSITIVITY TROPONIN I (INITIAL)on 01-13-2025 Tropinin I.cardiac panel High sensitivity method 5.9 pg/mL Normal 0.0-34.0 [facility] Comment on above: Order Comment: Speci men Type: BLOOD SPECIMENOrdering Facility: [facility] Address: [address] [place] [address] Performed By: #### L [id number] ####[facility] LABORATORYCLIA [id number] [address] HIGH SENSITIVITY TROPONIN I (SECOND)on 01-13-2025 Tropinin I.cardiac panel High sensitivity method 8.0 pg/mL Normal 0.0-34.0 [facility] Comment on above: Order Comment: Speci men Type: BLOOD SPECIMENOrdering Facility: [facility] Address: [address] [place] [address] Performed By: #### H STROPI2 ####[facility] LABORATORYCLIA [id number] [address] [place] HISTORY PHYSICALon HISTORY PHYSICAL Normal [facility] SEPSIS LACTATE W/ REFLEX (IN ITIAL)on 01-13-2025 Lactate [Moles/Vol] 1.1 mmol/L Normal 0.4-2.0 [facility] Comment on above: Order Comment: Speci men Type: BLOOD SPECIMENOrdering Facility: [facility] Address: [address] [place] [address] Performed By: #### S LACTR ####[facility] LABORATORYCLIA [id number] [address] [place] Urinalysis complete panel (U )on 01-13-2025 Bacteria LM.HPF (Urine sed) [#/Area] Moderate Abnormal None Seen [facility] Comment on above: Order Comment: Speci men Type: URINE SPECIMENOrdering Facility: [facility] Address: [address] [place] [address] Performed By: #### 6 30-4, 76893-4 ####[facility] LABORATORYCLIA [id number] [place] [address] [place] Bilirubin Ql (U) Negative Normal Negative [facility] Comment on above: Order Comment: Speci men Type: URINE SPECIMENOrdering Facility: [facility] Address: [address] [place] [address] Performed By: #### 6 30-4, 91814-5 ####[facility] LABORATORYCLIA [id number] [address] Clarity (Unsp spec) Cloudy Abnormal Clear [facility] Comment on above: Order Comment: Speci men Type: URINE SPECIMENOrdering Facility: [facility] Address: [address] [place] [address] Performed By: #### 6 30-, 10648-4 ####[facility] LABORATORYCLIA [id number] [address] [place] Color (U) Yellow Normal Yellow [facility] Comment on above: Order Comment: Speci men Type: URINE SPECIMENOrdering Facility: [facility] Address: [address] [place] [address] Performed By: #### 6 30-4, 71008-1 ####[facility] LABORATORYCLIA [id number] [address] [place] Epithelial cells LM.HPF (Urine sed) [#/Area] Few Normal [facility] Comment on above: Order Comment: Speci men Type: URINE SPECIMENOrdering Facility: [facility] Address: [address] [place] [address] Performed By: #### 6 30-4, 77335-3 ####[facility] LABORATORYCLIA [id number] [place] [id number] [place] Glucose Test strip (U) [Mass/Vol] Negative Normal Negative [facility] Comment on above: Order Comment: Speci men Type: URINE SPECIMENOrdering Facility: [facility] Address: [address] [place] [address] Performed By: #### 6 30-4, 82617-3 ####[facility] LABORATORYCLIA [id number] [address] [place] Hemoglobin Ql (U) 1+ Abnormal Negative [facility] Comment on above: Order Comment: Speci men Type: URINE SPECIMENOrdering Facility: [facility] Address: [address] [place] [address] Performed By: #### 6 30-4, 52160-6 ####[facility] LABORATORYCLIA [id number] [address] [place] Ketones Ql (U) Negative Normal Negative [facility] Comment on above: Order Comment: Speci men Type: URINE SPECIMENOrdering Facility: [facility] Address: [address] [place] [address] Performed By: #### 6 30-, 79331-3 ####[facility] LABORATORYCLIA [id number] [address] [place] Leukocyte esterase Test strip Ql (U) 3+ Abnormal Negative [facility] Comment on above: Order Comment: Speci men Type: URINE SPECIMENOrdering Facility: [facility] Address: [address] [place] [address] Performed By: #### 6 30-4, 24748-2 ####[facility] LABORATORYCLIA [id number] [place] [address] [place] Nitrite Ql (U) Negative Normal Negative [facility] Comment on above: Order Comment: Speci men Type: URINE SPECIMENOrdering Facility: [facility] [facility] Address: [address] [place] [address] Performed By: #### 6 30-4, 33295-5 ####[facility] LABORATORYCLIA [id number] [place] [id number] [place] pH (U) 5.0 [pH] Normal 5.0-8.0 [facility] Comment on above: Order Comment: Speci men Type: URINE SPECIMENOrdering Facility: [facility] Address: [address] [place] [address] Performed By: #### 6 30-4, 37548-1 ####[facility] LABORATORYCLIA [id number] [place] [id number] [place] Protein (U) [Mass/Vol] 2+ Abnormal Negative [facility] Comment on above: Order Comment: Speci men Type: URINE SPECIMENOrdering Facility: [facility] Address: [address] [place] [address] Performed By: #### 6 30-4, 64353-5 ####[facility] LABORATORYCLIA [id number] [place] [address] [place] RBC LM.HPF (Urine sed) [#/Area] 11-25 /HPF Abnormal 0-3 /HPF [facility] Comment on above: Order Comment: Speci men Type: URINE SPECIMENOrdering Facility: [facility] Address: [address] [place] [address] Performed By: #### 6 30-4, 30643-8 ####[facility] LABORATORYIA [id number] [address] [place] Specific gravity (U) [Rel density] 1.018 Normal 1.005-1.03 0 [facility] Comment on above: Order Comment: Speci men Type: URINE SPECIMENOrdering Facility: [facility] Address: [address] [place] [address] Performed By: #### 6 30-4, 51812-8 ####[facility] LABORATORYCLIA [id number] [address] [place] Urobilinogen Ql (U) Negative Normal Negative [facility] Comment on above: Order Comment: Speci men Type: URINE SPECIMENOrdering Facility: [facility] Address: [address] [place] [address] Performed By: #### 6 30-4, 73225-4 ####[facility] LABORATORYCLIA [id number] [address] WBC LM.HPF (Urine sed) [#/Area] /[HPF] Abnormal 0-5 /HPF [facility] Comment on above: Order Comment: Speci men Type: URINE SPECIMENOrdering Facility: [facility] Address: [address] [place] [address] Performed By: #### 6 30-4, 19912-2 ####[facility] LABORATORYCLIA [id number] [place] [address] [place] XR CHEST 2V FRONTAL/LATon XR CHEST 2V FRONTAL/LAT Normal [facility] BRIEF OP NOTon 01-12-2025 BRIEF OP NOT Normal [facility] Bacteria Bld Culton 01-12-20 25 Bacteria identified Cx Nom (Bld) Abnormal [facility] Comment on above: Performed By: #### 6 00-7, 19703-2 ####[facility] LABORATORYCLIA [id number] [address] STATES OF [facility] Bacteria identified Cx Nom (Bld) Abnormal [facility] Comment on above: Performed By: #### 6 00-7 ####[facility] LABORATORYCLIA [id number] [address] [place] CBC W Auto Differential pane l (Bld)on 01-12-2025 Basophils (Bld) [#/Vol] 0.06 10*3/uL Normal <0.11 [facility] Comment on above: Order Comment: Speci men Type: BLOOD SPECIMENOrdering Facility: [facility] Address: [address] [place] [address] Performed By: #### 5 7021-8 ####[facility] LABORATORYCLIA [id number] [address] [place] Basophils/100 WBC (Bld) 0.4 % Normal [facility] Comment on above: Order Comment: Speci men Type: BLOOD SPECIMENOrdering Facility: [facility] Address: [address] [place] [address] Performed By: #### 5 7021-8 ####[facility] LABORATORYCLIA [id number] [place] [address] [place] Differential cell count method Nom (Bld) Auto Normal [facility] Comment on above: Order Comment: Speci men Type: BLOOD SPECIMENOrdering Facility: [facility] Address: [address] [place] [address] Performed By: #### 5 7021-8 ####[facility] LABORATORYCLIA [id number] [place] [address] [place] Eosinophils (Bld) [#/Vol] 10*3/uL Normal <0.46 [facility] Comment on above: Order Comment: Speci men Type: BLOOD SPECIMENOrdering Facility: [facility] Address: [address] [place] [address] Performed By: #### 5 7021-8 ####[facility] LABORATORYCLIA [id number] [address] [place] Eosinophils/100 WBC (Bld) 0.1 % Normal [facility] Comment on above: Order Comment: Speci men Type: BLOOD SPECIMENOrdering Facility: [facility] Address: [address] [place] [address] Performed By: #### 5 7021-8 ####[facility] LABORATORYCLIA [id number] [address] [place] Erythrocyte distribution width (RBC) [Ratio] 13.6 % Normal 11.5-15.0 [facility] Comment on above: Order Comment: Speci men Type: BLOOD SPECIMENOrdering Facility: [facility] Address: [address] [place] [address] Performed By: #### 5 7021-8 ####[facility] LABORATORYCLIA [id number] [address] [place] Hematocrit (Bld) [Volume fraction] 44.0 % Normal 36.0-46.0 [facility] Comment on above: Order Comment: Speci men Type: BLOOD SPECIMENOrdering Facility: [facility] Address: [address] [place] [address] Performed By: #### 5 7021-8 ####[facility] LABORATORYCLIA [id number] [place] [id number] [place] Hemoglobin (Bld) [Mass/Vol] 14.4 g/dL Normal 11.5-15.5 [facility] Comment on above: Order Comment: Speci men Type: BLOOD SPECIMENOrdering Facility: [facility] Address: [facility] [place] [address] Performed By: #### 5 7021-8 ####[facility] LABORATORYCLIA [id number] [place] [id number] [place] Immature granulocytes (Bld) [#/Vol] 0.06 10*3/uL Normal <0.10 [facility] Comment on above: Order Comment: Speci men Type: BLOOD SPECIMENOrdering Facility: [facility] Address: [address] [place] [address] Performed By: #### 5 7021-8 ####[facility] LABORATORYCLIA [id number] [place] [address] [place] Immature granulocytes/100 WBC (Bld) 0.4 % Normal [facility] Comment on above: Order Comment: Speci men Type: BLOOD SPECIMENOrdering Facility: [facility] Address: [address] [place] [address] Performed By: #### 5 7021-8 ####[facility] LABORATORYCLIA [id number] [place] [id number] [place] Lymphocytes (Bld) [#/Vol] 1.13 10*3/uL Normal 1.00-4.00 [facility] Comment on above: Order Comment: Speci men Type: BLOOD SPECIMENOrdering Facility: [facility] Address: [address] [place] [address] Performed By: #### 5 7021-8 ####[facility] LABORATORYCLIA [id number] [place] [id number] [place] Lymphocytes/100 WBC (Bld) 8.3 % Normal [facility] Comment on above: Order Comment: Speci men Type: BLOOD SPECIMENOrdering Facility: [facility] Address: [address] [place] [address] Performed By: #### 5 7021-8 ####[facility] LABORATORYCLIA [id number] [place] [id number] [place] MCH (RBC) [Entitic mass] 29.0 pg Normal 26.0-34.0 [facility] Comment on above: Order Comment: Speci men Type: BLOOD SPECIMENOrdering Facility: [facility] Address: [address] [place] [address] Performed By: #### 5 7021-8 ####[facility] LABORATORYCLIA [id number] [place] [address] [place] MCHC (RBC) [Mass/Vol] 32.7 g/dL Normal 30.5-36.0 [facility] Comment on above: Order Comment: Speci men Type: BLOOD SPECIMENOrdering Facility: [facility] Address: [address] [place] [address] Performed By: #### 5 7021-8 ####[facility] LABORATORYCLIA [id number] [place] [address] [place] MCV (RBC) [Entitic vol] 88.7 fL Normal 80.0-100.0 [facility] Comment on above: Order Comment: Speci men Type: BLOOD SPECIMENOrdering Facility: [facility] Address: [address] [place] [address] Performed By: #### 5 7021-8 ####[facility] LABORATORYCLIA [id number] [place] [address] [facility] [place] Monocytes (Bld) [#/Vol] 0.59 10*3/uL Normal <0.87 [facility] Comment on above: Order Comment: Speci men Type: BLOOD SPECIMENOrdering Facility: [facility] Address: [address] [place] [address] Performed By: #### 5 7021-8 ####[facility] LABORATORYCLIA [id number] [place] [address] [place] Monocytes/100 WBC (Bld) 4.3 % Normal [facility] Comment on above: Order Comment: Speci men Type: BLOOD SPECIMENOrdering Facility: [facility] Address: [address] [place] [address] Performed By: #### 5 7021-8 ####[facility] LABORATORYCLIA [id number] [place] [address] [place] Neutrophils (Bld) [#/Vol] 11.74 10*3/uL High 1.45-7.50 [facility] Comment on above: Order Comment: Speci men Type: BLOOD SPECIMENOrdering Facility: [facility] Address: [address] [place] [address] Performed By: #### 5 7021-8 ####[facility] LABORATORYCLIA [id number] [place] [address] [place] Neutrophils/100 WBC (Bld) 86.5 % Normal [facility] Comment on above: Order Comment: Speci men Type: BLOOD SPECIMENOrdering Facility: [facility] Address: [address] [place] [address] Performed By: #### 5 7021-8 ####[facility] LABORATORYCLIA [id number] [place] [address] [place] Nucleated RBC (Bld) [#/Vol] 10*3/uL Normal <0.01 [facility] Comment on above: Order Comment: Speci men Type: BLOOD SPECIMENOrdering Facility: [facility] Address: [address] [place] [address] Performed By: #### 5 7021-8 ####[facility] LABORATORYCLIA [id number] [place] [address] [place] Nucleated RBC/100 WBC (Bld) [Ratio] 0.0 /100 WBC Normal [facility] Comment on above: Order Comment: Speci men Type: BLOOD SPECIMENOrdering Facility: [facility] Address: [address] [place] [address] Performed By: #### 5 7021-8 ####[facility] LABORATORYCLIA [id number] [place] [id number] [place] Platelet mean volume (Bld) [Entitic vol] 9.5 fL Normal 9.0-12.7 [facility] Comment on above: Order Comment: Speci men Type: BLOOD SPECIMENOrdering Facility: [facility] Address: [address] [place] [address] Performed By: #### 5 7021-8 ####[facility] LABORATORYCLIA [id number] [place] [id number] [facility] [place] Platelets (Bld) [#/Vol] 348 10*3/uL Normal 150-400 [facility] Comment on above: Order Comment: Speci men Type: BLOOD SPECIMENOrdering Facility: [facility] Address: [address] [place] [address] Performed By: #### 5 7021-8 ####[facility] LABORATORYCLIA [id number] [address] [place] RBC (Bld) [#/Vol] 4.96 10*6/uL Normal 3.90-5.20 [facility] Comment on above: Order Comment: Speci men Type: BLOOD SPECIMENOrdering Facility: [facility] Address: [address] [place] [address] Performed By: #### 5 7021-8 ####[facility] LABORATORYCLIA [id number] [place] [id number] [place] WBC (Bld) [#/Vol] 13.60 10*3/uL High 3.70-11.00 [facility] Comment on above: Order Comment: Speci men Type: BLOOD SPECIMENOrdering Facility: [facility] Address: [address] [place] [address] Performed By: #### 5 7021-8 ####[facility] LABORATORYCLIA [id number] [place] [id number] [facility] [place] Comprehensive metabolic 2000 panelon 01-12-2025 Albumin [Mass/Vol] 3.1 g/dL Low 3.2-5.0 [facility] Comment on above: Order Comment: Speci men Type: BLOOD SPECIMENOrdering Facility: [facility] Address: [address] [place] [address] Performed By: #### 2 4323-8 ####[facility] LABORATORYCLIA [id number] [place] [address] [place] ALP [Catalytic activity/Vol] 167 U/L High 45-117 [facility] Comment on above: Order Comment: Speci men Type: BLOOD SPECIMENOrdering Facility: [facility] Address: [address] [place] [address] Performed By: #### 2 4323-8 ####[facility] LABORATORYCLIA [id number] [address] [place] ALT [Catalytic activity/Vol] 19 U/L Normal 13-61 [facility] Comment on above: Order Comment: Speci men Type: BLOOD SPECIMENOrdering Facility: [facility] Address: [address] [place] [address] Result Comment: Resu lts may be falsely depressed after the administration of Sulfasalazine and/or Sulfapyridine. Performed By: #### 2 4323-8 ####[facility] LABORATORYCLIA [id number] [address] [place] Anion gap [Moles/Vol] 9 mmol/L Normal 5-16 [facility] Comment on above: Order Comment: Speci men Type: BLOOD SPECIMENOrdering Facility: [facility] Address: [address] [place] [address] Performed By: #### 2 4323-8 ####[facility] LABORATORYCLIA [id number] [place] [address] [place] AST [Catalytic activity/Vol] 31 U/L Normal 8-34 [facility] Comment on above: Order Comment: Speci men Type: BLOOD SPECIMENOrdering Facility: [facility] Address: [address] [place] [address] Result Comment: Resu lts may be falsely depressed after the administration of Sulfasalazine and/or Sulfapyridine. Performed By: #### 2 4323-8 ####[facility] LABORATORYCLIA [id number] [place] [address] [place] Bilirubin [Mass/Vol] 1.4 mg/dL High 0.2-1.0 [facility] Comment on above: Order Comment: Speci men Type: BLOOD SPECIMENOrdering Facility: [facility] Address: [address] [place] [address] Performed By: #### 2 4323-8 ####[facility] LABORATORYCLIA [id number] [place] [address] [place] Calcium [Mass/Vol] 9.5 mg/dL Normal 8.5-10.5 [facility] Comment on above: Order Comment: Speci men Type: BLOOD SPECIMENOrdering Facility: [facility] Address: [address] [place] [address] Performed By: #### 2 4323-8 ####[facility] LABORATORYCLIA [id number] [place] [address] [place] Chloride [Moles/Vol] 100 mmol/L Normal 98-107 [facility] Comment on above: Order Comment: Speci men Type: BLOOD SPECIMENOrdering Facility: [facility] Address: [address] [place] [address] Performed By: #### 2 4323-8 ####[facility] LABORATORYCLIA [id number] [place] [address] [place] CO2 [Moles/Vol] 25 mmol/L Normal 21-32 [facility] Comment on above: Order Comment: Speci men Type: BLOOD SPECIMENOrdering Facility: [facility] Address: [address] [place] [address] Performed By: #### 2 4323-8 ####[facility] LABORATORYCLIA [id number] [place] [address] [place] Creatinine [Mass/Vol] 2.02 mg/dL High 0.51-0.95 [facility] Comment on above: Order Comment: Speci men Type: BLOOD SPECIMENOrdering Facility: [facility] Address: [address] [place] [id number] Result Comment: Mayda ents receiving either N-Acetylcysteine (NAC) or Metamizole prior to venipuncture, may have falsely depressed results. Performed By: #### 2 4323-8 ####[facility] LABORATORYCLIA [id number] [place] [address] [place] Creatinine and Glomerular filtration rate.predicted panel (S/P/Bld) 26 mL/min/1.73m??? Low >=60 [facility] Comment on above: Order Comment: Abdon lyles Type: BLOOD SPECIMENOrdering Facility: [facility] Address: [address] [place] [address] Result Comment: Judith mated Glomerular Filtration Rate (eGFR) is calculated using the 2020 CKD-EPI creatinine equation. This equation utilizes serum creatinine, sex, and age as parameters. The creatinine assay has traceable calibration to isotope dilution-mass spectrometry. Refer to KDIGO guidelines for clinical interpretation. In patients with unstable renal function, e.g. those with acute kidney injury, the eGFR may not accurately reflect actual GFR. Performed By: #### 2 4323-8 ####[facility] LABORATORYCLIA [id number] [place] [address] [place] Glucose [Mass/Vol] 97 mg/dL Normal 70-100 [facility] Comment on above: Order Comment: Abdon lyles Type: BLOOD SPECIMENOrdering Facility: [facility] Address: [address] [place] [address] Result Comment: The [place] [employer] (ADA) provides guidance for cutoff values for fasting glucose and random glucose. The ADA defines fasting as no caloric intake for at least 8 hours. Fasting plasma glucose results between 100 to 125 mg/dL indicate increased risk for diabetes (prediabetes).Fasting plasma glucose results greater than or equal to 126 mg/dL meet the criteria for diagnosis of diabetes. In the absence of unequivocal hyperglycemia, results should be confirmed by repeat testing. In a patient with classic symptoms of hyperglycemia or hyperglycemic crisis, random plasma glucose results greater than or equal to 200 mg/dL meet the criteria for diagnosis of diabetes.Reference: Standards of Medical Care in Diabetes 2016, [place] [employer]. Diabetes Care. 2016.39(Suppl 1).Results may be falsely elevated after the administration of Sulfapyridine.Results may be falsely depressed after the administration of Sulfasalazine. Performed By: #### 2 4323-8 ####[facility] LABORATORYCLIA [id number] [place] [address] [place] Potassium [Moles/Vol] 4.4 mmol/L Normal 3.5-5.1 [facility] Comment on above: Order Comment: Speci men Type: BLOOD SPECIMENOrdering Facility: [facility] Address: [address] [place] [address] Performed By: #### 2 4323-8 ####[facility] LABORATORYCLIA [id number] [place] [address] [place] Protein [Mass/Vol] 8.3 g/dL Normal 6.0-8.5 [facility] Comment on above: Order Comment: Speci men Type: BLOOD SPECIMENOrdering Facility: [facility] Address: [address] [place] [address] Performed By: #### 2 4323-8 ####[facility] LABORATORYCLIA [id number] [place] [address] [place] Sodium [Moles/Vol] 134 mmol/L Low 136-145 [facility] Comment on above: Order Comment: Speci men Type: BLOOD SPECIMENOrdering Facility: [facility] Address: [address] [place] [address] Performed By: #### 2 4323-8 ####[facility] LABORATORYCLIA [id number] [place] [address] [place] Urea nitrogen [Mass/Vol] 21 mg/dL Normal 7-26 [facility] Comment on above: Order Comment: Speci men Type: BLOOD SPECIMENOrdering Facility: [facility] Address: [address] [place] [address] Performed By: #### 2 4323-8 ####[facility] LABORATORYCLIA [id number] [address] OF [facility] ED Triage Noteon 01-12-2025 ED Triage Note Normal [facility] IR EXCHANGE NEPH TUBE BILATo n 01-12-2025 IR EXCHANGE NEPH TUBE BILAT Normal [facility] NURSING PROGon 01-12-2025 NURSING PROG Normal [facility] Resp path 12a Pnl Spec BOBBI+p robeon 01-12-2025 Respiratory pathogens DNA and RNA 12a panel BOBBI+probe (Unsp spec) Abnormal [facility] Comment on above: Performed By: #### 6 00-7, 94208-6 ####[facility] LABORATORYCLIA [id number] [address] OF [facility] SEPSIS LACTATE W/ REFLEX (IN ITIAL)on 01-12-2025 Lactate [Moles/Vol] 1.0 mmol/L Normal 0.4-2.0 [facility] Comment on above: Order Comment: Speci men Type: BLOOD SPECIMENOrdering Facility: [facility] Address: [address] [place] [address] Performed By: #### S LACTR ####[facility] LABORATORYCLIA [id number] [address] OF [facility] Absolute lymphocyte countOrd ered By: Hunter Olvera on 01-07-2025 Lymphocytes Auto (Unsp spec) [#/Vol] 5.09 10*3/uL High 0.83-4.51 [facility] Absolute neutrophil countOrd ered By: Hunter Olvera on 01-07-2025 Neutrophils (Bld) [#/Vol] 5.7 10*3/uL 2.0-7.7 [facility] Automated lymphocyte count a s percentage of total leukocytesOrdered By: Hunter Olvera on 01-07-2025 Lymphocytes/100 WBC Auto (Unsp spec) 42.9 % High 19-41 [facility] Basophil percentageOrdered B y: Hunter Olvera on 01-07-2025 Basophils/100 WBC (Bld) 0.7 % 0-1 [facility] Blood urea nitrogen (BUN)/cr eatinine ratioOrdered By: Hunter Olvera on 01-07-2025 Urea nitrogen/Creatinine [Mass ratio] 11.3 mg/mg 10-20 [facility] Carbon dioxide measurementOr dered By: Hunter Olvera on 01-07-2025 CO2 [Moles/Vol] 24.0 mmol/L 21.0-32.0 [facility] Chloride measurementOrdered By: Hunter Olvera on 01-07-2025 Chloride [Moles/Vol] 106 mmol/L 98-107 [facility] Eosinophil percentageOrdered By: Hunter Olvera on 01-07-2025 Eosinophils/100 WBC (Bld) 1.2 % 0-5 [facility] Erythrocyte distribution wid th ratioOrdered By: Hunter Olvera on 01-07-2025 Erythrocyte distribution width (RBC) [Ratio] 13.5 % 11.6-14.6 [facility] Erythrocyte distribution wid th standard deviationOrdered By: Hunter Olvera on 01-07-2025 Erythrocyte distribution width (RBC) [Entitic vol] 44.8 fL High 35.1-43.9 [facility] Erythrocyte distribution width (RBC) [Ratio] 44.8 fl High 35.1-43.9 [facility] Estimated glomerular filtrat ion rate (GFR) AmericanOrdered By: Hunter Olvera on 01-07-2025 Estimated GFR (MDRD) Amer 29 mL/min Low >60 [facility] Comment on above: GFR Calc Glomerular filtration rate ( GFR) estimationOrdered By: Hunter Olvera on 01-07-2025 Estimated GFR (MDRD) Non-Af Amer 24 mL/min Low >60 [facility] Comment on above: Non- GFR Calc GFR/1.73 sq M.predicted among non-blacks MDRD (S/P/Bld) [Vol rate/Area] 24 mL/min/{1.73_m2} Low >60 [facility] Comment on above: Non- GFR Calc Glucose measurementOrdered B y: Hunter Olvera on 01-07-2025 Glucose [Mass/Vol] 106 mg/dL 74-106 [facility] Comment on above: Fasting Glucose resu lt from 100 to 125 mg/dL suggests IMPAIRED HOMEOSTASIS per A.D.A. criteria. Hematocrit Auto (Bld) [Volum e fraction]Ordered By: Hunter Olvera on 01-07-2025 Hematocrit (Bld) [Volume fraction] 43.6 % 37-47 [facility] Hemoglobin A1c percentageOrd ered By: Hunter Olvera on 01-07-2025 HbA1c (Bld) [Mass fraction] 5.6 % 3.8-5.6 [facility] Comment on above: Normal < 5.7 % Predi abetic 5.7 - 6.4 % Diabetic >or= 6.5 % Please note range changes. Hemoglobin measurementOrdere d By: Hunter Olvera on 01-07-2025 Hemoglobin (Bld) [Mass/Vol] 14.1 g/dL 12.0-15.0 [facility] Immature granulocytes/100 WB C Auto (Bld)Ordered By: Hunter Olvera on 01-07-2025 Immature granulocytes/100 WBC (Bld) 0.300 % 0.0-0.9 [facility] Comment on above: IG% - Immature Granu locytes (promyelocytes, myelocytes and metamyelocytes) > 1% indicates that a LEFT SHIFT is Present. Lymphocytes Auto (Unsp spec) [#/Vol]Ordered By: Hunter Olvera on 01-07-2025 Lymphocytes (Bld) [#/Vol] 5.09 10*3/uL High 0.83-4.51 [facility] Lymphocytes/100 WBC Auto (Un sp spec)Ordered By: Hunter Olvera on 01-07-2025 Lymphocytes/100 WBC (Bld) 42.9 % High 19-41 [facility] MCV (mean corpuscular volume ) determinationOrdered By: Hunter Olvera on 01-07-2025 MCV (RBC) [Entitic vol] 90.1 fL 81-99 [facility] Mean corpuscular hemoglobin (MCH) determinationOrdered By: Hunter Olvera on 01-07-2025 MCH (RBC) [Entitic mass] 29.1 pg 27.0-32.0 [facility] Mean corpuscular hemoglobin concentration (MCHC) determinationOrdered By: Hunter Olvera on 01-07-2025 MCHC (RBC) [Mass/Vol] 32.3 g/dL 32-36 [facility] Mean platelet volume determi nationOrdered By: Hunter Olvera on 01-07-2025 Platelet mean volume (Bld) [Entitic vol] 9.8 fL 6.2-12.0 [facility] Monocyte percentageOrdered B y: Hunter Olvera on 01-07-2025 Monocytes/100 WBC (Bld) 6.8 % 0-10 [facility] Neutrophil percentageOrdered By: Hunter Olvera on 01-07-2025 Neutrophils/100 WBC (Bld) 48.1 % 47-70 [facility] Nucleated red blood cell per centageOrdered By: Hunter Olvera on 01-07-2025 Nucleated RBC/100 WBC (Bld) [Ratio] 0 % 0-5 [facility] Phosphorus measurementOrdere d By: Hunter Olvera on 01-07-2025 Phosphorus Level 3.8 mg/dL 2.5-4.9 [facility] Platelet countOrdered By: Shayan Olvera on 01-07-2025 Platelets (Bld) [#/Vol] 364 10*3/uL 150-450 [facility] Potassium measurementOrdered By: Hunter Olvera on 01-07-2025 Potassium [Moles/Vol] 4.4 mmol/L 3.5-5.1 [facility] Protein/Creatinine (U) [Mass ratio]Ordered By: Hunter Olvera on 01-07-2025 Urine Protein/Creatinine Ratio 1750 mg/g CRE High 0-200 [facility] RBC Auto (Bld) [#/Vol]Ordere d By: Hunter Olvera on 01-07-2025 RBC (Bld) [#/Vol] 4.84 10*6/uL 4.2-5.4 [facility] Random urine protein measure mentOrdered By: Hunter Olvera on 01-07-2025 Protein (U) [Mass/Vol] 158.9 mg/dL High 0.0-11.8 [facility] Reactive lymphocyte countOrd ered By: Hunter Olvera on 01-07-2025 Reactive Lymphocytes 1+ [facility] Serum or plasma albumin yunior urement (mass/volume)Ordered By: Hunter Olvera on 01-07-2025 Albumin [Mass/Vol] 3.0 g/dL Low 3.2-5.0 [facility] Serum or plasma calcium yunior urement (mass/volume)Ordered By: Hunter Olvera on 01-07-2025 Calcium [Mass/Vol] 8.9 mg/dL 8.5-10.1 [facility] Serum or plasma creatinine m easurement (mass/volume)Ordered By: Hunter Olvera on 01-07-2025 Creatinine [Mass/Vol] 2.12 mg/dL High 0.55-1.02 [facility] Comment on above: The validity of the calculated GFR & GFRAA in patients over 70 years has not been determined. Clinical correlation is essential. Serum or plasma urea nitroge n measurement (mass/volume)Ordered By: Hunter Olvera on 01-07-2025 Urea nitrogen [Mass/Vol] 24 mg/dL High 7-18 [facility] Sodium levelOrdered By: Jack Olvera on 01-07-2025 Sodium [Moles/Vol] 137 mmol/L 136-145 [facility] Urine creatinine measurement (mass/volume)Ordered By: Hunter Olvera on 01-07-2025 Creatinine (U) [Mass/Vol] 90.80 mg/dL NO RANGE EST. [facility] Urine protein/creatinine mas s ratioOrdered By: Hunter Olvera on 01-07-2025 Protein/Creatinine (U) [Mass ratio] 1750 mg/g CRE High 0-200 [facility] White blood cell (WBC) count Ordered By: Hunter Olvera on 01-07-2025 WBC (Bld) [#/Vol] 11.9 10*3/uL High 4.4-11.0 [facility] CNOVon 12-22-2024 CNOV Normal [facility] Basic metabolic 2000 panelon 12-06-2024 Anion gap [Moles/Vol] 5 mmol/L Normal 5-16 [facility] Comment on above: Order Comment: Speci men Type: BLOOD SPECIMENOrdering Facility: [facility] Address: [address] [place] [address] Performed By: #### 2 4321-2, 54667-6, 49890-8, 2777-1 ####[facility] LABORATORYCLIA [id number] [place] [address] [place] Calcium [Mass/Vol] 8.9 mg/dL Normal 8.5-10.5 [facility] Comment on above: Order Comment: Speci men Type: BLOOD SPECIMENOrdering Facility: [facility] Address: [address] [place] [address] Performed By: #### 2 4321-2, 80541-6, 18294-7, 2776-1 ####[facility] LABORATORYCLIA [id number] [place] [id number] [place] Chloride [Moles/Vol] 109 mmol/L High 98-107 [facility] Comment on above: Order Comment: Speci men Type: BLOOD SPECIMENOrdering Facility: [facility] Address: [address] [place] [address] Performed By: #### 2 4321-2, 36593-5, , 2776- ####[facility] LABORATORYCLIA [id number] [place] [id number] [place] CO2 [Moles/Vol] 24 mmol/L Normal 21-32 [facility] Comment on above: Order Comment: Speci men Type: BLOOD SPECIMENOrdering Facility: [facility] Address: [address] [place], [place] [address] Performed By: #### 2 4321-2, 31436-0, , 2776-11 ####[facility] LABORATORYCLIA [id number] [place] [id number] [place] Creatinine [Mass/Vol] 1.77 mg/dL High 0.51-0.95 [facility] Comment on above: Order Comment: Speci men Type: BLOOD SPECIMENOrdering Facility: [facility] Address: [address] [place] [address] Result Comment: Mayda ents receiving either N-Acetylcysteine (NAC) or Metamizole prior to venipuncture, may have falsely depressed results. Performed By: #### 2 4321-2, 33700-4, 29388-2, 1 ####[facility] LABORATORYCLIA [id number] [place] [address] [facility] [place] Creatinine and Glomerular filtration rate.predicted panel (S/P/Bld) 30 mL/min/1.73m??? Low >=60 [facility] Comment on above: Order Comment: Speci men Type: BLOOD SPECIMENOrdering Facility: [facility] Address: [address] [place] [address] Result Comment: Judith mated Glomerular Filtration Rate (eGFR) is calculated using the 2020 CKD-EPI creatinine equation. This equation utilizes serum creatinine, sex, and age as parameters. The creatinine assay has traceable calibration to isotope dilution-mass spectrometry. Refer to KDIGO guidelines for clinical interpretation. In patients with unstable renal function, e.g. those with acute kidney injury, the eGFR may not accurately reflect actual GFR. Performed By: #### 2 4321-2, 78107-3, 73011-5, 2776-11 ####[facility] LABORATORYCLIA [id number] [place] [id number] [place] Glucose [Mass/Vol] 78 mg/dL Normal 70-100 [facility] Comment on above: Order Comment: Abdon lyles Type: BLOOD SPECIMENOrdering Facility: [facility] Address: [address] [place] [address] Result Comment: The [place] [employer] (ADA) provides guidance for cutoff values for fasting glucose and random glucose. The ADA defines fasting as no caloric intake for at least 8 hours. Fasting plasma glucose results between 100 to 125 mg/dL indicate increased risk for diabetes (prediabetes).Fasting plasma glucose results greater than or equal to 126 mg/dL meet the criteria for diagnosis of diabetes. In the absence of unequivocal hyperglycemia, results should be confirmed by repeat testing. In a patient with classic symptoms of hyperglycemia or hyperglycemic crisis, random plasma glucose results greater than or equal to 200 mg/dL meet the criteria for diagnosis of diabetes.Reference: Standards of Medical Care in Diabetes 2016, [place] [employer]. Diabetes Care. 2016.39(Suppl 1).Results may be falsely elevated after the administration of Sulfapyridine.Results may be falsely depressed after the administration of Sulfasalazine. Performed By: #### 2 4321-2, 00777-1, , 2776-11 ####[facility] LABORATORYCLIA [id number] [place] [id number] [place] Potassium [Moles/Vol] 4.2 mmol/L Normal 3.5-5.1 [facility] Comment on above: Order Comment: Speci men Type: BLOOD SPECIMENOrdering Facility: [facility] Address: [address] [place] [address] Performed By: #### 2 4321-2, 53539-7, 92376-3, 1 ####[facility] LABORATORYCLIA [id number] [place] [address] [place] Sodium [Moles/Vol] 138 mmol/L Normal 136-145 [facility] Comment on above: Order Comment: Speci men Type: BLOOD SPECIMENOrdering Facility: [facility] Address: [address] [place] [address] Performed By: #### 2 4321-2, 98352-7, , 2776-11 ####[facility] LABORATORYCLIA [id number] [place] [id number] [place] Urea nitrogen [Mass/Vol] 20 mg/dL Normal 7-26 [facility] Comment on above: Order Comment: Speci men Type: BLOOD SPECIMENOrdering Facility: [facility] Address: [address] [place] [address] Performed By: #### 2 4321-2, 45991-7, , 2776-11 ####[facility] LABORATORYCLIA [id number] [place] [address] [place] CBC panel Auto (Bld)on 12-06 Erythrocyte distribution width (RBC) [Ratio] 13.8 % Normal 11.5-15.0 [facility] Comment on above: Order Comment: Speci men Type: BLOOD SPECIMENOrdering Facility: [facility] Address: [address] [place] [address] Performed By: #### 5 8410-2 ####[facility] LABORATORYCLIA [id number] [place] [address] [place] Hematocrit (Bld) [Volume fraction] 36.5 % Normal 36.0-46.0 [facility] Comment on above: Order Comment: Speci men Type: BLOOD SPECIMENOrdering Facility: [facility] Address: [address] [place] [address] Performed By: #### 5 8410-2 ####[facility] LABORATORYCLIA [id number] [place] [address] [place] Hemoglobin (Bld) [Mass/Vol] 11.9 g/dL Normal 11.5-15.5 [facility] Comment on above: Order Comment: Speci men Type: BLOOD SPECIMENOrdering Facility: [facility] Address: [address] [place] [address] Performed By: #### 5 8410-2 ####[facility] LABORATORYCLIA [id number] [place] [address] [place] MCH (RBC) [Entitic mass] 29.4 pg Normal 26.0-34.0 [facility] Comment on above: Order Comment: Speci men Type: BLOOD SPECIMENOrdering Facility: [facility] Address: [address] [place] [address] Performed By: #### 5 8410-2 ####[facility] LABORATORYCLIA [id number] [address] [place] MCHC (RBC) [Mass/Vol] 32.6 g/dL Normal 30.5-36.0 [facility] Comment on above: Order Comment: Speci men Type: BLOOD SPECIMENOrdering Facility: [facility] Address: [address] [place] [address] Performed By: #### 5 8410-2 ####[facility] LABORATORYCLIA [id number] [place] [address] [place] MCV (RBC) [Entitic vol] 90.1 fL Normal 80.0-100.0 M [facility] Comment on above: Order Comment: Speci men Type: BLOOD SPECIMENOrdering Facility: [facility] Address: [address] [place] [address] Performed By: #### 5 8410-2 ####[facility] LABORATORYCLIA [id number] [place] [address] [place] Nucleated RBC (Bld) [#/Vol] 10*3/uL Normal <0.01 [facility] Comment on above: Order Comment: Speci men Type: BLOOD SPECIMENOrdering Facility: [facility] Address: [address] [place] [address] Performed By: #### 5 8410-2 ####[facility] LABORATORYCLIA [id number] [place] [id number] [place] Platelet mean volume (Bld) [Entitic vol] 9.6 fL Normal 9.0-12.7 [facility] Comment on above: Order Comment: Speci men Type: BLOOD SPECIMENOrdering Facility: [facility] Address: [address] [place] [address] Performed By: #### 5 8410-2 ####[facility] LABORATORYCLIA [id number] [place] [address] [place] Platelets (Bld) [#/Vol] 370 10*3/uL Normal 150-400 [facility] Comment on above: Order Comment: Speci men Type: BLOOD SPECIMENOrdering Facility: [facility] Address: [address] [place] [address] Performed By: #### 5 8410-2 ####[facility] LABORATORYCLIA [id number] [place] [address] [place] RBC (Bld) [#/Vol] 4.05 10*6/uL Normal 3.90-5.20 [facility] Comment on above: Order Comment: Speci men Type: BLOOD SPECIMENOrdering Facility: [facility] Address: [address] [place] [address] Performed By: #### 5 8410-2 ####[facility] LABORATORYCLIA [id number] [place] [address] [place] WBC (Bld) [#/Vol] 11.74 10*3/uL High 3.70-11.00 [facility] Comment on above: Order Comment: Speci men Type: BLOOD SPECIMENOrdering Facility: [facility] Address: [address] [place] [address] Performed By: #### 5 8410-2 ####[facility] LABORATORYCLIA [id number] [place] [address] [place] CNDSon 12-06-2024 CNDS Normal [facility] Hepatic function 2000 panelo n 12-06-2024 Albumin [Mass/Vol] 2.5 g/dL Low 3.2-5.0 [facility] Comment on above: Order Comment: Speci men Type: BLOOD SPECIMENOrdering Facility: [facility] Address: [address] [place] [address] Performed By: #### 2 4321-2, 99293-8, 30719-2, 277-1 ####[facility] LABORATORYCLIA [id number] [place] [id number] [place] ALP [Catalytic activity/Vol] 127 U/L High 45-117 [facility] Comment on above: Order Comment: Speci men Type: BLOOD SPECIMENOrdering Facility: [facility] Address: [address] [place] [address] Performed By: #### 2 4321-2, 01736-2, 71049-5, 277-1 ####[facility] LABORATORYCLIA [id number] [place] [address] [place] ALT [Catalytic activity/Vol] U/L Low 13-61 [facility] Comment on above: Order Comment: Speci men Type: BLOOD SPECIMENOrdering Facility: [facility] Address: [address] [place] [address] Result Comment: Resu lts may be falsely depressed after the administration of Sulfasalazine and/or Sulfapyridine. Performed By: #### 2 4321-2, 06908-4, 85678-5, 277-1 ####[facility] LABORATORYCLIA [id number] [place] [address] [place] AST [Catalytic activity/Vol] 13 U/L Normal 8-34 [facility] Comment on above: Order Comment: Speci men Type: BLOOD SPECIMENOrdering Facility: [facility] Address: [address] [place] [address] Result Comment: Resu lts may be falsely depressed after the administration of Sulfasalazine and/or Sulfapyridine. Performed By: #### 2 4321-2, 49034-9, , 2776-11 ####[facility] LABORATORYCLIA [id number] [place] [address] [place] Bilirubin [Mass/Vol] 0.6 mg/dL Normal 0.2-1.0 [facility] Comment on above: Order Comment: Speci men Type: BLOOD SPECIMENOrdering Facility: [facility] Address: [address] [place] [address] Performed By: #### 2 4321-2, 13553-5, , 2776-11 ####[facility] LABORATORYCLIA [id number] [place] [address] [place] Bilirubin.conjugated [Mass/Vol] 0.2 mg/dL Normal 0.0-0.4 [facility] Comment on above: Order Comment: Speci men Type: BLOOD SPECIMENOrdering Facility: [facility] Address: [address] [place] [address] Performed By: #### 2 4321-2, 01602-4, , 2776-11 ####[facility] LABORATORYCLIA [id number] [place] [address] [place] Protein [Mass/Vol] 6.9 g/dL Normal 6.0-8.5 [facility] Comment on above: Order Comment: Speci men Type: BLOOD SPECIMENOrdering Facility: [facility] Address: [address] [place], [place] [address] Performed By: #### 2 4321-2, 56201-5, , 2776-11 ####[facility] LABORATORYCLIA [id number] [place] [address] [place] Magnesium SerPl-mCncon 12-06 Magnesium [Mass/Vol] 1.7 mg/dL Normal 1.6-2.6 [facility] Comment on above: Order Comment: Speci men Type: BLOOD SPECIMENOrdering Facility: [facility] Address: [address] [place] [id number] Performed By: #### 2 4321-2, 94969-6, 58873-6, 2777-1 ####[facility] LABORATORYCLIA [id number] [place] [address] [place] Phosphate SerPl-mCncon 12-06 Phosphate [Mass/Vol] 4.6 mg/dL Normal 2.5-4.9 [facility] Comment on above: Order Comment: Speci men Type: BLOOD SPECIMENOrdering Facility: [facility] Address: [address] [place] [address] Result Comment: Elev ated m-protein (paraprotein) levels in the serum may be exhibited in patients with monoclonal gammopathies, causing falsely elevated inorganic phosphorus results. Performed By: #### 2 4321-2, 30139-1, 24143-6, 2777-1 ####[facility] LABORATORYCLIA [id number] [place] [address] [facility] ALLIED HEALTHon 12-05-2024 ALLIED HEALTH Normal [facility] BRIEF OP NOTon 12-05-2024 BRIEF OP NOT Normal [facility] Bacteria Ur Culton Bacteria identified Cx Nom (U) ORGANISM ID: 1 >=100,000 CFU/ml Mixed microbiota including 3 different colony types, and no one type predominating. No further workup. Normal [facility] Comment on above: Performed By: #### 6 30-4 ####[facility] LABORATORYCLIA [id number] [address] [place] Bacteria identified Cx Nom (U) Normal [facility] Comment on above: Performed By: #### 2 4356-8, 630-4 ####[facility] LABORATORYIA [id number] [address] [place] CBC W Auto Differential pane l (Bld)on 12-05-2024 Basophils (Bld) [#/Vol] 0.00 10*3/uL Normal <0.11 [facility] Comment on above: Order Comment: Speci men Type: BLOOD SPECIMENOrdering Facility: [facility] Address: [address] [place] [address] Performed By: #### 5 7021-8, STFREV ####[facility] LABORATORYCLIA [id number] [place] [address] [place] Basophils/100 WBC (Bld) 0.0 % Normal [facility] Comment on above: Order Comment: Speci men Type: BLOOD SPECIMENOrdering Facility: [facility] Address: [address] [place] [address] Performed By: #### 5 7021-8, STFREV ####[facility] LABORATORYCLIA [id number] [place] [address] [facility] [place] Differential cell count method Nom (Bld) Manual Normal [facility] Comment on above: Order Comment: Speci men Type: BLOOD SPECIMENOrdering Facility: [facility] Address: [address] [place] [address] Performed By: #### 5 7021-8, STFREV ####[facility] LABORATORYCLIA [id number] [place] [address] [place] Eosinophils (Bld) [#/Vol] 0.12 10*3/uL Normal <0.46 [facility] Comment on above: Order Comment: Speci men Type: BLOOD SPECIMENOrdering Facility: [facility] Address: [address] [place] [address] Performed By: #### 5 7021-8, STFREV ####[facility] LABORATORYCLIA [id number] [place] [address] [place] Eosinophils/100 WBC (Bld) 1.0 % Normal [facility] Comment on above: Order Comment: Speci men Type: BLOOD SPECIMENOrdering Facility: [facility] Address: [address] [place] [address] Performed By: #### 5 7021-8, STFREV ####[facility] LABORATORYCLIA [id number] [place] [address] [place] Erythrocyte distribution width (RBC) [Ratio] 13.7 % Normal 11.5-15.0 [facility] Comment on above: Order Comment: Speci men Type: BLOOD SPECIMENOrdering Facility: [facility] Address: [address] [place] [address] Performed By: #### 5 7021-8, STFREV ####[facility] LABORATORYCLIA [id number] [place] [address] [place] Hematocrit (Bld) [Volume fraction] 41.7 % Normal 36.0-46.0 [facility] Comment on above: Order Comment: Speci men Type: BLOOD SPECIMENOrdering Facility: [facility] Address: [address] [place] [address] Performed By: #### 5 7021-8, STFREV ####[facility] LABORATORYCLIA [id number] [place] [address] [place] Hemoglobin (Bld) [Mass/Vol] 13.6 g/dL Normal 11.5-15.5 [facility] Comment on above: Order Comment: Speci men Type: BLOOD SPECIMENOrdering Facility: [facility] Address: [address] [place] [address] Performed By: #### 5 7021-8, STFREV ####[facility] LABORATORYCLIA [id number] [place] [address] [place] Lymphocytes (Bld) [#/Vol] 7.13 10*3/uL High 1.00-4.00 [facility] Comment on above: Order Comment: Speci men Type: BLOOD SPECIMENOrdering Facility: [facility] Address: [address] [place] [address] Performed By: #### 5 7021-8, STFREV ####[facility] LABORATORYCLIA [id number] [place] [address] [place] Lymphocytes/100 WBC (Bld) 58.0 % Normal [facility] Comment on above: Order Comment: Speci men Type: BLOOD SPECIMENOrdering Facility: [facility] Address: [address] [place], [place] [address] Performed By: #### 5 7021-8, STFREV ####[facility] LABORATORYCLIA [id number] [address] [place] MCH (RBC) [Entitic mass] 29.5 pg Normal 26.0-34.0 [facility] Comment on above: Order Comment: Speci men Type: BLOOD SPECIMENOrdering Facility: [facility] Address: [address] [place] [address] Performed By: #### 5 7021-8, STFREV ####[facility] LABORATORYCLIA [id number] [place] [address] [place] MCHC (RBC) [Mass/Vol] 32.6 g/dL Normal 30.5-36.0 [facility] Comment on above: Order Comment: Speci men Type: BLOOD SPECIMENOrdering Facility: [facility] Address: [address] [place] [address] Performed By: #### 5 7021-8, STFREV ####[facility] LABORATORYCLIA [id number] [place] [address] [place] MCV (RBC) [Entitic vol] 90.5 fL Normal 80.0-100.0 M [facility] Comment on above: Order Comment: Speci men Type: BLOOD SPECIMENOrdering Facility: [facility] Address: [address] [place] [address] Performed By: #### 5 7021-8, STFREV ####[facility] LABORATORYCLIA [id number] [address] [place] Monocytes (Bld) [#/Vol] 0.74 10*3/uL Normal <0.87 [facility] Comment on above: Order Comment: Speci men Type: BLOOD SPECIMENOrdering Facility: [facility] Address: [address] [place] [address] Performed By: #### 5 7021-8, STFREV ####[facility] LABORATORYCLIA [id number] [place] [address] [place] Monocytes/100 WBC (Bld) 6.0 % Normal [facility] Comment on above: Order Comment: Speci men Type: BLOOD SPECIMENOrdering Facility: [facility] Address: [address] [place] [address] Performed By: #### 5 7021-8, STFREV ####[facility] LABORATORYCLIA [id number] [place] [address] [place] Neutrophils (Bld) [#/Vol] 4.30 10*3/uL Normal 1.45-7.50 [facility] Comment on above: Order Comment: Speci men Type: BLOOD SPECIMENOrdering Facility: [facility] Address: [address] [place] [address] Performed By: #### 5 7021-8, STFREV ####[facility] LABORATORYCLIA [id number] [place] [address] [place] Neutrophils/100 WBC (Bld) 35.0 % Normal [facility] Comment on above: Order Comment: Speci men Type: BLOOD SPECIMENOrdering Facility: [facility] Address: [address] [place] [address] Performed By: #### 5 7021-8, STFREV ####[facility] LABORATORYCLIA [id number] [place] [address] [place] Nucleated RBC (Bld) [#/Vol] 10*3/uL Normal <0.01 [facility] Comment on above: Order Comment: Speci men Type: BLOOD SPECIMENOrdering Facility: [facility] Address: [address] [place] [address] Performed By: #### 5 7021-8, STFREV ####[facility] LABORATORYCLIA [id number] [place] [address] [place] Nucleated RBC/100 WBC (Bld) [Ratio] 0.0 /100 WBC Normal [facility] Comment on above: Order Comment: Speci men Type: BLOOD SPECIMENOrdering Facility: [facility] Address: [address] [place] [address] Performed By: #### 5 7021-8, STFREV ####[facility] LABORATORYCLIA [id number] [place] [address] [place] Ovalocytes LM Ql (Bld) Few Normal [facility] Comment on above: Order Comment: Speci men Type: BLOOD SPECIMENOrdering Facility: [facility] Address: [address] [place] [address] Performed By: #### 5 7021-8, STFREV ####[facility] LABORATORYCLIA [id number] [place] [address] [place] Platelet mean volume (Bld) [Entitic vol] 9.3 fL Normal 9.0-12.7 [facility] Comment on above: Order Comment: Speci men Type: BLOOD SPECIMENOrdering Facility: [facility] Address: [address] [place] [address] Performed By: #### 5 7021-8, STFREV ####[facility] LABORATORYCLIA [id number] [place] [address] [place] Platelets (Bld) [#/Vol] 423 10*3/uL High 150-400 [facility] Comment on above: Order Comment: Speci men Type: BLOOD SPECIMENOrdering Facility: [facility] Address: [address] [place] [address] Performed By: #### 5 7021-8, STFREV ####[facility] LABORATORYCLIA [id number] [place] [address] [place] Platelets Estimate (Bld) [#/Vol] Increased Normal [facility] Comment on above: Order Comment: Speci men Type: BLOOD SPECIMENOrdering Facility: [facility] Address: [address] [place] [address] Performed By: #### 5 7021-8, STFREV ####[facility] LABORATORYCLIA [id number] [place] [id number] [place] Polychromasia LM Ql (Bld) Slight Normal [facility] Comment on above: Order Comment: Speci men Type: BLOOD SPECIMENOrdering Facility: [facility] Address: [address] [place] [address] Performed By: #### 5 7021-8, STFREV ####[facility] LABORATORYCLIA [id number] [place] [id number] [facility] [place] RBC (Bld) [#/Vol] 4.61 10*6/uL Normal 3.90-5.20 [facility] Comment on above: Order Comment: Speci men Type: BLOOD SPECIMENOrdering Facility: [facility] Address: [address] [place] [address] Performed By: #### 5 7021-8, STFREV ####[facility] LABORATORYCLIA [id number] [place] [address] [facility] RED CELL MORPH Reviewed: see result s of individual morphologies Normal [facility] Comment on above: Order Comment: Speci men Type: BLOOD SPECIMENOrdering Facility: [facility] Address: [address] [place] [address] Performed By: #### 5 7021-8, STFREV ####[facility] LABORATORYCLIA [id number] [place] [address] [place] WBC (Bld) [#/Vol] 12.29 10*3/uL High 3.70-11.00 [facility] Comment on above: Order Comment: Speci men Type: BLOOD SPECIMENOrdering Facility: [facility] Address: [address] [place] [address] Performed By: #### 5 7021-8, STFREV ####[facility] LABORATORYCLIA [id number] [place] [address] [place] CONSULTon 12-05-2024 CONSULT Normal [facility] CT ABD/PEL WO IVCONon 2024 CT ABD/PEL WO IVCON Normal [facility] Comprehensive metabolic 2000 panelon 12-05-2024 Albumin [Mass/Vol] 2.9 g/dL Low 3.2-5.0 [facility] Comment on above: Order Comment: Speci men Type: BLOOD SPECIMENOrdering Facility: [facility] Address: [address] [place] [address] Performed By: #### 2 4323-8 ####[facility] LABORATORYCLIA [id number] [place] [address] [place] ALP [Catalytic activity/Vol] 144 U/L High 45-117 [facility] Comment on above: Order Comment: Speci men Type: BLOOD SPECIMENOrdering Facility: [facility] Address: [address] [place] [address] Performed By: #### 2 4323-8 ####[facility] LABORATORYCLIA [id number] [place] [address] [place] ALT [Catalytic activity/Vol] U/L Low 13-61 [facility] Comment on above: Order Comment: Speci men Type: BLOOD SPECIMENOrdering Facility: [facility] Address: [address] [place] [address] Result Comment: Resu lts may be falsely depressed after the administration of Sulfasalazine and/or Sulfapyridine. Performed By: #### 2 4323-8 ####[facility] LABORATORYCLIA [id number] [place] [address] [place] Anion gap [Moles/Vol] 10 mmol/L Normal 5-16 [facility] Comment on above: Order Comment: Speci men Type: BLOOD SPECIMENOrdering Facility: [facility] Address: [address] [place] [address] Performed By: #### 2 4323-8 ####[facility] LABORATORYCLIA [id number] [place] [address] [place] AST [Catalytic activity/Vol] 15 U/L Normal 8-34 [facility] Comment on above: Order Comment: Speci men Type: BLOOD SPECIMENOrdering Facility: [facility] Address: [address] [place] [address] Result Comment: Resu lts may be falsely depressed after the administration of Sulfasalazine and/or Sulfapyridine. Performed By: #### 2 4323-8 ####[facility] LABORATORYCLIA [id number] [place] [address] [place] Bilirubin [Mass/Vol] 0.2 mg/dL Normal 0.2-1.0 [facility] Comment on above: Order Comment: Speci men Type: BLOOD SPECIMENOrdering Facility: [facility] Address: [address] [place] [address] Performed By: #### 2 4323-8 ####[facility] LABORATORYCLIA [id number] [place] [address] [place] Calcium [Mass/Vol] 9.1 mg/dL Normal 8.5-10.5 [facility] Comment on above: Order Comment: Speci men Type: BLOOD SPECIMENOrdering Facility: [facility] Address: [address] [place] [address] Performed By: #### 2 4323-8 ####[facility] LABORATORYCLIA [id number] [place] [address] [place] Chloride [Moles/Vol] 103 mmol/L Normal 98-107 [facility] Comment on above: Order Comment: Speci men Type: BLOOD SPECIMENOrdering Facility: [facility] Address: [address] [place] [address] Performed By: #### 2 4323-8 ####[facility] LABORATORYCLIA [id number] [place] [address] [place] CO2 [Moles/Vol] 27 mmol/L Normal 21-32 [facility] Comment on above: Order Comment: Speci men Type: BLOOD SPECIMENOrdering Facility: [facility] Address: [address] [place] [address] Performed By: #### 2 4323-8 ####[facility] LABORATORYCLIA [id number] [place] [address] [place] Creatinine [Mass/Vol] 1.85 mg/dL High 0.51-0.95 [facility] Comment on above: Order Comment: Speci men Type: BLOOD SPECIMENOrdering Facility: [facility] Address: [address] [place] [address] Result Comment: Mayda ents receiving either N-Acetylcysteine (NAC) or Metamizole prior to venipuncture, may have falsely depressed results. Performed By: #### 2 4323-8 ####[facility] LABORATORYCLIA [id number] [place] [address] [place] Creatinine and Glomerular filtration rate.predicted panel (S/P/Bld) 29 mL/min/1.73m??? Low >=60 [facility] Comment on above: Order Comment: Abdon lyles Type: BLOOD SPECIMENOrdering Facility: [facility] Address: [address] [place] [address] Result Comment: Judith mated Glomerular Filtration Rate (eGFR) is calculated using the 2020 CKD-EPI creatinine equation. This equation utilizes serum creatinine, sex, and age as parameters. The creatinine assay has traceable calibration to isotope dilution-mass spectrometry. Refer to KDIGO guidelines for clinical interpretation. In patients with unstable renal function, e.g. those with acute kidney injury, the eGFR may not accurately reflect actual GFR. Performed By: #### 2 4323-8 ####[facility] LABORATORYCLIA [id number] [place] [address] [place] Glucose [Mass/Vol] 129 mg/dL High 70-100 [facility] Comment on above: Order Comment: Abdon lyles Type: BLOOD SPECIMENOrdering Facility: [facility] Address: [address] [place] [address] Result Comment: The [place] [employer] (ADA) provides guidance for cutoff values for fasting glucose and random glucose. The ADA defines fasting as no caloric intake for at least 8 hours. Fasting plasma glucose results between 100 to 125 mg/dL indicate increased risk for diabetes (prediabetes).Fasting plasma glucose results greater than or equal to 126 mg/dL meet the criteria for diagnosis of diabetes. In the absence of unequivocal hyperglycemia, results should be confirmed by repeat testing. In a patient with classic symptoms of hyperglycemia or hyperglycemic crisis, random plasma glucose results greater than or equal to 200 mg/dL meet the criteria for diagnosis of diabetes.Reference: Standards of Medical Care in Diabetes 2016, [place] [employer]. Diabetes Care. 2016.39(Suppl 1).Results may be falsely elevated after the administration of Sulfapyridine.Results may be falsely depressed after the administration of Sulfasalazine. Performed By: #### 2 4323-8 ####[facility] LABORATORYCLIA [id number] [place] [id number] [place] Potassium [Moles/Vol] 4.2 mmol/L Normal 3.5-5.1 [facility] Comment on above: Order Comment: Speci men Type: BLOOD SPECIMENOrdering Facility: [facility] Address: [address] [place] [address] Performed By: #### 2 4323-8 ####[facility] LABORATORYCLIA [id number] [place] [id number] [place] Protein [Mass/Vol] 7.8 g/dL Normal 6.0-8.5 [facility] Comment on above: Order Comment: Speci men Type: BLOOD SPECIMENOrdering Facility: [facility] Address: [address] [place] [address] Performed By: #### 2 4323-8 ####[facility] LABORATORYCLIA [id number] [place] [address] [place] Sodium [Moles/Vol] 140 mmol/L Normal 136-145 [facility] Comment on above: Order Comment: Speci men Type: BLOOD SPECIMENOrdering Facility: [facility] Address: [address] [place] [address] Performed By: #### 2 4323-8 ####[facility] LABORATORYCLIA [id number] [place] [address] [place] Urea nitrogen [Mass/Vol] 22 mg/dL Normal 7-26 [facility] Comment on above: Order Comment: Speci men Type: BLOOD SPECIMENOrdering Facility: [facility] Address: [address] [place] [address] Performed By: #### 2 4323-8 ####[facility] LABORATORYCLIA [id number] [place] [id number] [place] ED PROV NOTEon 12-05-2024 ED PROV NOTE Normal [facility] HISTORY PHYSICALon 5 HISTORY PHYSICAL Normal [facility] IR NEPHROSTOGRAMon 5 IR NEPHROSTOGRAM Normal [facility] IR NEPHROSTOMY TUBE PLACEon 12-05-[address] Normal [facility] PATHOLOGIST INTERPRETATION C BC/DIFFon 12-05-2024 Clinical Science Liaison review Pollo (Unsp spec) [Interp] Reviewed by Veronica Arredondo MD [facility] Comment on above: Order Comment: Speci men Type: BLOOD SPECIMENOrdering Facility: [facility] Address: [address] [place] [address] Performed By: #### 5 7021-8, STKARSON ####[facility] LABORATORYCLIA [id number] [address] OF [facility] STAFF REVIEW, CBCDIF [facility] Comment on above: Order Comment: Abdon lyles Type: BLOOD SPECIMENOrdering Facility: [facility] Address: [address] [place] [address] Result Comment: Lymp hocytic leukocytosis with reactive/atypical forms; neutrophils show cytoplasmic vacuolization and Dohle body formation. Platelets are increased in number (423 k/uL) but normal and morphology. Red blood cells appear normal in number and morphology.Review of the patient's prior CBCs shows lymphocytosis dating back to 11/23/2023.. Clinical correlation is required with further evaluation, possibly including flow cytometric evaluation peripheral blood, as clinically indicated. Performed By: #### 5 7021-8, STFREV ####[facility] LABORATORYCLIA [id number] [address] [place] PT panel Coag (PPP)on 2024 INR Coag (PPP) [Relative time] 1.0 {INR} Normal 0.9-1.3 [facility] Comment on above: Order Comment: Speci men Type: BLOOD SPECIMENOrdering Facility: [facility] Address: [address] [place] [address] Result Comment: Tawanna min K Antagonist (VKA) Therapeutic Range: INR 2 to 3 (Target INR of 2.5)Note: For patients treated with VKA drugs, such as warfarin, the [place] [employer] 2012 Guideline recommends a therapeutic INR range of 2 to 3 (target INR of 2.5). This recommendation includes high-risk patients with antiphospholipid syndrome with previous arterial or venous thromboembolism, current-generation mechanical or bioprosthetic aortic heart valve replacement.Note: Patients with mechanical aortic valve replacement and additional risk factors for thromboembolic events (atrial fibrillation, previous thromboembolism, LV dysfunction, hypercoagulable conditions) or an older generation mechanical AVR (i.e., ball in-Cage) or any mechanical MVR should have a INR therapeutic range of 2.5 to 3.5 (target INR of 3).Suleiman BURCH, et al. Chest 2012, 141:7S-47SNishnery RA, et al. JAC 2017, 70: 252-289 Performed By: #### 3 4528-0, 76981-5 ####[facility] LABORATORYCLIA [id number] [address] [place] PT Coag (PPP) [Time] 10.9 s Normal 9.7-13.0 [facility] Comment on above: Order Comment: Speci men Type: BLOOD SPECIMENOrdering Facility: [facility] Address: [address] [place] [address] Performed By: #### 3 4528-0, 96239-4 ####[facility] LABORATORYCLIA [id number] [address] [place] SEPSIS LACTATEon 12-05-2024 Lactate [Moles/Vol] 0.7 mmol/L Normal 0.4-2.0 [facility] Comment on above: Order Comment: Speci men Type: BLOOD SPECIMENOrdering Facility: [facility] Address: [address] [place] [address] Performed By: #### S LACT ####[facility] LABORATORYCLIA [id number] [address] Urinalysis complete panel (U )on 12-05-2024 Bacteria LM.HPF (Urine sed) [#/Area] Many Abnormal None Seen [facility] Comment on above: Order Comment: Speci men Type: URINE SPECIMENOrdering Facility: [facility] Address: [address] [place] [address] Performed By: #### 2 4356-8, 630-4 ####[facility] LABORATORYCLIA [id number] [place] [id number] [place] Bilirubin Ql (U) Negative Normal Negative [facility] Comment on above: Order Comment: Speci men Type: URINE SPECIMENOrdering Facility: [facility] Address: [address] [place] [address] Performed By: #### 2 4356-8, 630-4 ####[facility] LABORATORYCLIA [id number] [address] [place] Clarity (Unsp spec) Slightly Cloudy Abnormal Clear [facility] Comment on above: Order Comment: Speci men Type: URINE SPECIMENOrdering Facility: [facility] Address: [address] [place] [address] Performed By: #### 2 4356-8, 630-4 ####[facility] LABORATORYCLIA [id number] [address] [place] Color (U) Yellow Normal Yellow [facility] Comment on above: Order Comment: Speci men Type: URINE SPECIMENOrdering Facility: [facility] Address: [address] [place] [address] Performed By: #### 2 4356-8, 630-4 ####[facility] LABORATORYCLIA [id number] [address] [place] Epithelial cells LM.HPF (Urine sed) [#/Area] None Seen Normal [facility] Comment on above: Order Comment: Speci men Type: URINE SPECIMENOrdering Facility: [facility] Address: [address] [place] [address] Result Comment: None Seen Performed By: #### 2 4356-8, 630-4 ####[facility] LABORATORYCLIA [id number] [place] [id number] [place] Glucose Test strip (U) [Mass/Vol] Negative Normal Negative [facility] Comment on above: Order Comment: Speci men Type: URINE SPECIMENOrdering Facility: [facility] Address: [address] [place] [address] Performed By: #### 2 4356-8, 630-4 ####[facility] LABORATORYCLIA [id number] [address] Hemoglobin Ql (U) 2+ Abnormal Negative [facility] Comment on above: Order Comment: Speci men Type: URINE SPECIMENOrdering Facility: [facility] Address: [address] [place] [address] Performed By: #### 2 4356-8, 630-4 ####[facility] LABORATORYCLIA [id number] [address] Ketones Ql (U) Negative Normal Negative [facility] Comment on above: Order Comment: Speci men Type: URINE SPECIMENOrdering Facility: [facility] Address: [address] [place] [address] Performed By: #### 2 4356-8, 630-4 ####[facility] LABORATORYCLIA [id number] [address] Leukocyte esterase Test strip Ql (U) 3+ Abnormal Negative [facility] Comment on above: Order Comment: Speci men Type: URINE SPECIMENOrdering Facility: [facility] Address: [address] [place] [address] Performed By: #### 2 4356-8, 630-4 ####[facility] LABORATORYCLIA [id number] [address] [place] Nitrite Ql (U) Negative Normal Negative [facility] Comment on above: Order Comment: Speci men Type: URINE SPECIMENOrdering Facility: [facility] Address: [address] [place] [address] Performed By: #### 2 4356-8, 630-4 ####[facility] LABORATORYCLIA [id number] [address] [place] pH (U) 6.5 [pH] Normal 5.0-8.0 [facility] Comment on above: Order Comment: Speci men Type: URINE SPECIMENOrdering Facility: [facility] Address: [address] [place] [address] Performed By: #### 2 4356-8, 630-4 ####[facility] LABORATORYCLIA [id number] [place] [id number] [place] Protein (U) [Mass/Vol] 2+ Abnormal Negative [facility] Comment on above: Order Comment: Speci men Type: URINE SPECIMENOrdering Facility: [facility] Address: [address] [place] [address] Performed By: #### 2 4356-8, 630-4 ####[facility] LABORATORYCLIA [id number] [place] [address] [place] RBC LM.HPF (Urine sed) [#/Area] 6-10 /HPF Abnormal 0-3 /HPF [facility] Comment on above: Order Comment: Speci men Type: URINE SPECIMENOrdering Facility: [facility] Address: [address] [place] [address] Performed By: #### 2 4356-8, 630-4 ####[facility]ENTERIA [id number] [address] [place] Specific gravity (U) [Rel density] 1.010 Normal 1.005-1.03 0 [facility] Comment on above: Order Comment: Speci men Type: URINE SPECIMENOrdering Facility: [facility] Address: [address] [place] [address] Performed By: #### 2 4356-8, 630-4 ####[facility] LABORATORYCLIA [id number] [address] Urobilinogen Ql (U) Negative Normal Negative [facility] Comment on above: Order Comment: Speci men Type: URINE SPECIMENOrdering Facility: [facility] Address: [address] [place] [address] Performed By: #### 2 4356-8, 630-4 ####[facility] LABORATORYCLIA [id number] [address] WBC LM.HPF (Urine sed) [#/Area] /[HPF] Abnormal 0-5 /HPF [facility] Comment on above: Order Comment: Speci men Type: URINE SPECIMENOrdering Facility: [facility] Address: [address] [place] [address] Performed By: #### 2 4356-8, 630-4 ####[facility] LABORATORYCLIA [id number] [address] aPTT PPPon 12-05-2024 aPTT Coag (PPP) [Time] 27.8 s Normal 23.0-32.4 [facility] Comment on above: Order Comment: Speci men Type: BLOOD SPECIMENOrdering Facility: [facility] Address: [address] [place] [address] Performed By: #### 3 4528-0, 15476-2 ####[facility] LABORATORYCLIA [id number] [address] ED Triage Noteon 12-04-2024 ED Triage Note Normal [facility] BRIEF OP NOTon 11-17-2024 BRIEF OP NOT [facility] IR EXCHANGE NEPH TUBE BILATo n 11-17-2024 IR EXCHANGE NEPH TUBE BILAT [facility] NURSING PROGon 11-17-2024 NURSING PROG [facility] CNPNon 11-07-2024 CNPN [facility] Influenza virus A and B and SARS-CoV-2 (COVID-19) and Respiratory syncytial virus RNAOrdered By: Gerardo García on 11-03-2024 SARS-CoV-2 (COVID-19) RNA BOBBI+probe Ql (Unsp spec) [facility] 81-GL-Iekiiqu DOrdered By: Zahra García on 10-27-2024 Vitamin D 25-Hydroxy 29.3 ng/mL [facility] Comment on above: Vitamin D 25(OH) Sta tus Range Deficiency <20 ng/mL (50nmol/L) Insufficiency 20 - 30 ng/mL (50 - 75 nmol/L) Sufficiency 30 - 100 ng/mL (75 - 250 nmol/L) Toxicity >100 ng/mL (>250 nmol/L) Absolute neutrophil countOrd ered By: Gerardo García on 10-27-2024 Neutrophils (Bld) [#/Vol] 5.5 10*3/uL 2.0-7.7 [facility] Albumin to globulin ratioOrd ered By: Gerardo García on 10-27-2024 Albumin/Globulin [Mass ratio] 0.5 {ratio} Low 0.9-2.4 [facility] Basophil percentageOrdered B y: Gerardo García on 10-27-2024 Basophils/100 WBC (Bld) 0.5 % 0-1 [facility] Bilirubin, totalOrdered By: [facility] on 10-27-2024 Bilirubin [Mass/Vol] 0.50 mg/dL 0.20-1.00 [facility] Comment on above: For patients on eltr ombopag therapy, use of Dimension [place] TBIL is not recommended. Blood urea nitrogen (BUN)/cr eatinine ratioOrdered By: Gerardo García on 10-27-2024 Urea nitrogen/Creatinine [Mass ratio] 10.0 mg/mg 10-20 [facility] Carbon dioxide measurementOr dered By: Gerardo García on 10-27-2024 CO2 [Moles/Vol] 22.0 mmol/L 21.0-32.0 [facility] Chloride measurementOrdered By: Gerardo García 10-27-2024 Chloride [Moles/Vol] 103 mmol/L 98-107 [facility] Eosinophil percentageOrdered By: Gerardo García 10-27-2024 Eosinophils/100 WBC (Bld) 0.9 % 0-5 [facility] Erythrocyte distribution wid th ratioOrdered By: Gerardo García on 10-27-2024 Erythrocyte distribution width (RBC) [Ratio] 14.6 % 11.6-14.6 [facility] Erythrocyte distribution wid th standard deviationOrdered By: Gerardo Ricky on 10-27-2024 Erythrocyte distribution width (RBC) [Entitic vol] 48.8 fL High 35.1-43.9 [facility] Estimated glomerular filtrat ion rate (GFR) AmericanOrdered By: Gerardo García 10-27-2024 Estimated GFR (MDRD) Amer 31 mL/min Low >60 [facility] Comment on above: GFR Calc Glomerular filtration rate ( GFR) estimationOrdered By: Gerardo García on 10-27-2024 Estimated GFR (MDRD) Non-Af Amer 26 mL/min Low >60 [facility] Comment on above: Non- GFR Calc Glucose measurementOrdered B y: Gerardo García on 10-27-2024 Glucose [Mass/Vol] 97 mg/dL 74-106 [facility] Hematocrit Auto (Bld) [Volum e fraction]Ordered By: Gerardo García on 10-27-2024 Hematocrit (Bld) [Volume fraction] 41.2 % 37-47 [facility] Hemoglobin measurementOrdere d By: Gerardo García on 10-27-2024 Hemoglobin (Bld) [Mass/Vol] 13.2 g/dL 12.0-15.0 [facility] High density lipoprotein (HD L) measurementOrdered By: Gerardo García 10-27-2024 Cholesterol in HDL [Mass/Vol] 47 mg/dL >40 [facility] Comment on above: The drugs N-Acetylcy steine and Metamizole may falsely depress this assay. Reference Range HDL <40 mg/dL Low HDL Cholesterol HDL >or= 60 mg/dL High HDL Cholesterol Immature granulocytes/100 WB C Auto (Bld)Ordered By: Gerardo García on 10-27-2024 Immature granulocytes/100 WBC (Bld) 0.500 % 0.0-0.9 [facility] Comment on above: IG% - Immature Granu locytes (promyelocytes, myelocytes and metamyelocytes) > 1% indicates that a LEFT SHIFT is Present. Influenza virus A and B and SARS-CoV-2 (COVID-19) and Respiratory syncytial virus RNAOrdered By: Gerardo García on 10-27-2024 SARS-CoV-2 (COVID-19) RNA BOBBI+probe Ql (Unsp spec) [facility] Laboratory - Chemistry and C hemistry - challengeOrdered By: Gerardo García on 10-27-2024 AST [Catalytic activity/Vol] 15 U/L 15-37 [facility] Low density lipoprotein (LDL ) cholesterol measurementOrdered By: Gerardo García 10-27-2024 Cholesterol in LDL [Mass/Vol] 119 mg/dL 0-130 [facility] Lymphocytes Auto (Unsp spec) [#/Vol]Ordered By: Gerardo García on 10-27-2024 Lymphocytes (Bld) [#/Vol] 3.96 10*3/uL 0.83-4.51 [facility] Lymphocytes/100 WBC Auto (Un sp spec)Ordered By: Gerardo García on 10-27-2024 Lymphocytes/100 WBC (Bld) 36.8 % 19-41 [facility] MCV (mean corpuscular volume ) determinationOrdered By: Gerardo García on 10-27-2024 MCV (RBC) [Entitic vol] 91.2 fL 81-99 [facility] Mean corpuscular hemoglobin (MCH) determinationOrdered By: Gerardo García on 10-27-2024 MCH (RBC) [Entitic mass] 29.2 pg 27.0-32.0 [facility] Mean corpuscular hemoglobin concentration (MCHC) determinationOrdered By: Gerardo García on 10-27-2024 MCHC (RBC) [Mass/Vol] 32.0 g/dL 32-36 [facility] Mean platelet volume determi nationOrdered By: Gerardo García on 10-27-2024 Platelet mean volume (Bld) [Entitic vol] 10.0 fL 6.2-12.0 [facility] Monocyte percentageOrdered B y: Gerardo García on 10-27-2024 Monocytes/100 WBC (Bld) 9.9 % 0-10 [facility] Neutrophil percentageOrdered By: Gerardo García on 10-27-2024 Neutrophils/100 WBC (Bld) 51.4 % 47-70 [facility] Nucleated red blood cell per centageOrdered By: Gerardo García on 10-27-2024 Nucleated RBC/100 WBC (Bld) [Ratio] 0 % 0-5 [facility] Platelet countOrdered By: Lenny García on 10-27-2024 Platelets (Bld) [#/Vol] 343 10*3/uL 150-450 [facility] Potassium measurementOrdered By: Gerardo García on 10-27-2024 Potassium [Moles/Vol] 4.2 mmol/L 3.5-5.1 [facility] RBC Auto (Bld) [#/Vol]Ordere d By: Gerardo García on 10-27-2024 RBC (Bld) [#/Vol] 4.52 10*6/uL 4.2-5.4 [facility] Serum anion gap measurementO rdered By: Gerardo García on 10-27-2024 Anion gap [Moles/Vol] 9 mmol/L 5-15 [facility] Serum globulin measurementOr dered By: Gerardo García on 10-27-2024 Globulin (S) [Mass/Vol] 5.8 g/dL High 2.2-4.2 [facility] Serum or plasma alanine masterson otransferase (ALT) measurementOrdered By: Gerardo García on 10-27-2024 ALT [Catalytic activity/Vol] 11 U/L Low 13-56 [facility] Serum or plasma albumin yunior urement (mass/volume)Ordered By: Gerardo García on 10-27-2024 Albumin [Mass/Vol] 2.8 g/dL Low 3.2-5.0 [facility] Serum or plasma alkaline terry sphatase measurementOrdered By: Gerardo García 10-27-2024 ALP [Catalytic activity/Vol] 130 U/L High 45-117 [facility] Serum or plasma calcium yunior urement (mass/volume)Ordered By: Gerardo García 10-27-2024 Calcium [Mass/Vol] 9.0 mg/dL 8.5-10.1 [facility] Serum or plasma cholesterol measurement (mass/volume)Ordered By: Gerardo García 10-27-2024 Cholesterol [Mass/Vol] 187 mg/dL <200 [facility] Comment on above: <200 mg/dL Desirable 200-240 mg/dL Borderline >240 mg/dL High Risk Serum or plasma creatinine m easurement (mass/volume)Ordered By: Gerardo García on 10-27-2024 Creatinine [Mass/Vol] 2.01 mg/dL High 0.55-1.02 [facility] Comment on above: The validity of the calculated GFR & GFRAA in patients over 70 years has not been determined. Clinical correlation is essential. Serum or plasma urea nitroge n measurement (mass/volume)Ordered By: Gerardo García on 10-27-2024 Urea nitrogen [Mass/Vol] 20 mg/dL High 7-18 [facility] Sodium levelOrdered By: Gerardo García 10-27-2024 Sodium [Moles/Vol] 134 mmol/L Low 136-145 [facility] TSH QnOrdered By: Gerardo García o n 10-27-2024 Thyroid Stimulating Hormone (TSH) 2.330 uIU/mL 0.358-3.74 0 [facility] Total proteinOrdered By: Gerardo García on 10-27-2024 Protein [Mass/Vol] 8.6 g/dL High 6.4-8.2 [facility] Triglycerides measurementOrd ered By: Gerardo García on 10-27-2024 Triglyceride [Mass/Vol] 103 mg/dL <199 [facility] Comment on above: The drugs N-Acetylcy steine and Metamizole may falsely depress this assay.Serum Triglycerides Reference Interval Normal <150 mg/dL Borderline high 150 - 199 mg/dL High 200 - 499 mg/dL Very High > or = 500 mg/dL Very low density lipoprotein (VLDL) cholesterol measurementOrdered By: Gerardo García on 10-27-2024 VLDL Cholesterol 21 mg/dL 5-40 [facility] White blood cell (WBC) count Ordered By: Gerardo García on 10-27-2024 WBC (Bld) [#/Vol] 10.8 10*3/uL 4.4-11.0 [facility] BRIEF OP NOTon 09-29-2024 BRIEF OP NOT Normal [facility] IR EXCHANGE NEPH TUBE BILATo n 09-29-2024 IR EXCHANGE NEPH TUBE BILAT Normal [facility] IR NEPHROSTOGRAM BILATon IR NEPHROSTOGRAM BILAT Normal [facility] NURSING PROGon 09-29-2024 NURSING PROG Normal [facility] No Panel Informationon 09-29 IMPRESSION: UNEVENTFUL EXCHANGE AND UPSIZE OF GENITOURINARY CATHETERS PLAN: Catheter may be allowed to drain passively into bag until next catheter exchange. Patient may return in 8 weeks for routine exchange. Attestation Signer name: Ghulam Rivera DO I attest that I was present for the entire procedure. I reviewed the stored images and agree with the report as written. Application Integration Engineer: LADARIUS Transcribe Date/Time: Sep 29 2024 3:16P Dictated by : GHULAM RIVERA DO This examination was interpreted and the report reviewed and electronically signed by: GHULAM RIVERA DO on Sep 29 2024 3:18PM [facility] No Panel InformationOrdered By: [facility] Provider on 09-29-2024 [facility] RF Guidance for exchange of nephrostomy tube of Kidney - bilateral-- W contraston 09-29-2024 * * *Final Report* * * DATE OF EXAM: Sep 29 2024 11:16AM [id number] - IR EXCHANGE NEPH TUBE BILAT / PROCEDURE REASON: * * * * Physician Interpretation * * * * PROCEDURE: GENITOURINARY CATHETER EXCHANGE Procedural Personnel Attending physician(s): Ghulam Rivera D.O. Fellow physician(s): None Resident physician(s): None Advanced practice provider(s): None Medical Student(s): None Pre-procedure diagnosis: Hydronephrosis Post-procedure diagnosis: Same Indication: Routine scheduled exchange Additional clinical history: Upsize of bilateral tubes requested by urology PROCEDURE SUMMARY - Target organ: Bilateral [place] kidneys - Antegrade nephrostogram(s) via the existing access - Nephrostomy tube exchange - Additional procedure(s): None PROCEDURE DETAILS: Pre-procedure Consent: Risks, benefits, treatment options, potential complications and personnel to be involved were discussed (including the risks of radiation exposure, contrast and anesthesia administration, and any equipment needed for the procedure to ensure best possible outcome) with the patient and all questions were answered and consent was obtained prior to procedure. Premedicated for contrast allergy: n/a Transfusion of blood products: No Medication reconciliation: The patient's medications and allergies were reviewed in the electronic medical record and reconciled to the proposed procedure/treatment. Dia-procedure discussion: The appropriate elements of the pre-procedure discussion, safety check list and sign-out were performed. Time out: A time out was performed immediately prior to procedure start with the nursing and interventional team, correctly identifying the name, date of , procedure, anatomy (including marking of site and side if applicable), patient position, procedure consent form, relevant diagnostic and radiology test results, antibiotic administration if applicable, safety precautions, and procedure-specific equipment needs. Start of procedure: 1103 End of procedure: 1117 Patient position: Prone Preparation: The site was prepared and draped using all elements of maximal sterile barrier technique including sterile gloves, sterile gown, cap, mask, large sterile sheet, hand hygiene and cutaneous antisepsis. Antibiotics: None Antibiotic infusion start time: N/A Prophylactic antibiotic administered: None Additional med: None Additional med: None Contrast Contrast agent: VISPAQUE 270 Contrast volume (mL): 10 Image Guidance: Fluoroscopic guidance. Radiation Dose FLUOROSCOPIC RADIATION SUMMARY: Plane A, Air Kerma: 3.0 mGy Dose Area Product (DAP): Fluoro Time: 0:24 min:sec Radiation dose exceed 5 Gy: No If radiation dose exceeded 5 Gy, was counseling and instructional brochure provided: N/A Anesthesia/sedation Level of anesthesia/sedation: No sedation Anesthesia/sedation administered by: Not applicable Total intra-service sedation time (minutes): 0 Local anesthesia: 2 % lidocaine Right genitourinary catheter exchange Local anesthesia was administered. Initial nephrostogram was performed. A wire was placed through the existing tube and it was removed. The new tube was advanced over the wire and position was confirmed with contrast injection. Pre-existing genitourinary catheter: 8 F argon skater nephrostomy Genitourinary catheter(s) placed: 10 F argon skater nephrostomy Findings: Moderate hydronephrosis External catheter securement: Non-absorbable suture Left genitourinary catheter exchange Local anesthesia was administered. Initial nephrostogram was performed. A wire was placed through the existing tube and it was removed. The new tube was advanced over the wire and position was confirmed with contrast injection. Pre-existing genitourinary catheter: 8 F argon skater nephrostomy Genitourinary catheter(s) placed: 10 F argon skater nephrostomy Findings: Severe hydronephrosis External catheter securement: Non-absorbable suture Additional genitourinary system intervention Genitourinary intervention: None Location of intervention: Not applicable Device used: Not applicable Description of intervention: Not applicable Post-intervention findings: Not applicable Additional Details Additional description of procedure: None Equipment details: None Estimated blood loss (mL): Less than 10 Number and Type of Removed Specimens: 0: N/A Standardized report: [email or web address] Complications There were no immediate complications and no other complications. Conclusion The patient was comfortable and was transferred to the recovery room in stable condition. The procedure was performed by the: attending radiologist, without an certified pathology assistant. The attending radiologist performed t (more content not included)... [facility] Provider, Mayank Tourerob suero [place] - 09/29/2024 * * *Final Report* * * DATE OF EXAM: Sep 29 2024 11:16AM [id number] - IR EXCHANGE NEPH TUBE BILAT / PROCEDURE REASON: * * * * Physician Interpretation * * * * PROCEDURE: GENITOURINARY CATHETER EXCHANGE Procedural Personnel Attending physician(s): Ghulam Rivera D.O. Fellow physician(s): None Resident physician(s): None Advanced practice provider(s): None Medical Student(s): None Pre-procedure diagnosis: Hydronephrosis Post-procedure diagnosis: Same Indication: Routine scheduled exchange Additional clinical history: Upsize of bilateral tubes requested by urology PROCEDURE SUMMARY - Target organ: Bilateral [place] kidneys - Antegrade nephrostogram(s) via the existing access - Nephrostomy tube exchange - Additional procedure(s): None PROCEDURE DETAILS: Pre-procedure Consent: Risks, benefits, treatment options, potential complications and personnel to be involved were discussed (including the risks of radiation exposure, contrast and anesthesia administration, and any equipment needed for the procedure to ensure best possible outcome) with the patient and all questions were answered and consent was obtained prior to procedure. Premedicated for contrast allergy: n/a Transfusion of blood products: No Medication reconciliation: The patient's medications and allergies were reviewed in the electronic medical record and reconciled to the proposed procedure/treatment. Dia-procedure discussion: The appropriate elements of the pre-procedure discussion, safety check list and sign-out were performed. Time out: A time out was performed immediately prior to procedure start with the nursing and interventional team, correctly identifying the name, date of , procedure, anatomy (including marking of site and side if applicable), patient position, procedure consent form, relevant diagnostic and radiology test results, antibiotic administration if applicable, safety precautions, and procedure-specific equipment needs. Start of procedure: 1103 End of procedure: 1117 Patient position: Prone Preparation: The site was prepared and draped using all elements of maximal sterile barrier technique including sterile gloves, sterile gown, cap, mask, large sterile sheet, hand hygiene and cutaneous antisepsis. Antibiotics: None Antibiotic infusion start time: N/A Prophylactic antibiotic administered: None Additional med: None Additional med: None Contrast Contrast agent: VISPAQUE 270 Contrast volume (mL): 10 Image Guidance: Fluoroscopic guidance. Radiation Dose FLUOROSCOPIC RADIATION SUMMARY: Plane A, Air Kerma: 3.0 mGy Dose Area Product (DAP): Fluoro Time: 0:24 min:sec Radiation dose exceed 5 Gy: No If radiation dose exceeded 5 Gy, was counseling and instructional brochure provided: N/A Anesthesia/sedation Level of anesthesia/sedation: No sedation Anesthesia/sedation administered by: Not applicable Total intra-service sedation time (minutes): 0 Local anesthesia: 2 % lidocaine Right genitourinary catheter exchange Local anesthesia was administered. Initial nephrostogram was performed. A wire was placed through the existing tube and it was removed. The new tube was advanced over the wire and position was confirmed with contrast injection. Pre-existing genitourinary catheter: 8 F argon skater nephrostomy Genitourinary catheter(s) placed: 10 F argon skater nephrostomy Findings: Moderate hydronephrosis External catheter securement: Non-absorbable suture Left genitourinary catheter exchange Local anesthesia was administered. Initial nephrostogram was performed. A wire was placed through the existing tube and it was removed. The new tube was advanced over the wire and position was confirmed with contrast injection. Pre-existing genitourinary catheter: 8 F argon skater nephrostomy Genitourinary catheter(s) placed: 10 F argon skater nephrostomy Findings: Severe hydronephrosis External catheter securement: Non-absorbable suture Additional genitourinary system intervention Genitourinary intervention: None Location of intervention: Not applicable Device used: Not applicable Description of intervention: Not applicable Post-intervention findings: Not applicable Additional Details Additional description of procedure: None Equipment details: None Estimated blood loss (mL): Less than 10 Number and Type of Removed Specimens: 0: N/A Standardized report: [email or web address] Complications There were no immediate complications and no other complications. Conclusion The patient was comfortable and was transferred to the recovery room in stable condition. The procedure was performed by the: attending radiologist, without (more content not included)... [facility] Radiology Study observation (narrative) Jordan castillo [facility] RF Kidney - bilateral Views W contrast via nephrostomy tubeon 09-29-2024 * * *Final Report* * * DATE OF EXAM: Sep 29 2024 11:16AM [facility] [id number] - IR NEPHROSTOGRAM BILAT / PROCEDURE REASON: * * * * Physician Interpretation * * * * PROCEDURE: GENITOURINARY CATHETER EXCHANGE Procedural Personnel Attending physician(s): Ghulam Rivera D.O. Fellow physician(s): None Resident physician(s): None Advanced practice provider(s): None Medical Student(s): None Pre-procedure diagnosis: Hydronephrosis Post-procedure diagnosis: Same Indication: Routine scheduled exchange Additional clinical history: Upsize of bilateral tubes requested by urology PROCEDURE SUMMARY - Target organ: Bilateral [place] kidneys - Antegrade nephrostogram(s) via the existing access - Nephrostomy tube exchange - Additional procedure(s): None PROCEDURE DETAILS: Pre-procedure Consent: Risks, benefits, treatment options, potential complications and personnel to be involved were discussed (including the risks of radiation exposure, contrast and anesthesia administration, and any equipment needed for the procedure to ensure best possible outcome) with the patient and all questions were answered and consent was obtained prior to procedure. Premedicated for contrast allergy: n/a Transfusion of blood products: No Medication reconciliation: The patient's medications and allergies were reviewed in the electronic medical record and reconciled to the proposed procedure/treatment. Dia-procedure discussion: The appropriate elements of the pre-procedure discussion, safety check list and sign-out were performed. Time out: A time out was performed immediately prior to procedure start with the nursing and interventional team, correctly identifying the name, date of , procedure, anatomy (including marking of site and side if applicable), patient position, procedure consent form, relevant diagnostic and radiology test results, antibiotic administration if applicable, safety precautions, and procedure-specific equipment needs. Start of procedure: 1103 End of procedure: 1117 Patient position: Prone Preparation: The site was prepared and draped using all elements of maximal sterile barrier technique including sterile gloves, sterile gown, cap, mask, large sterile sheet, hand hygiene and cutaneous antisepsis. Antibiotics: None Antibiotic infusion start time: N/A Prophylactic antibiotic administered: None Additional med: None Additional med: None Contrast Contrast agent: VISPAQUE 270 Contrast volume (mL): 10 Image Guidance: Fluoroscopic guidance. Radiation Dose FLUOROSCOPIC RADIATION SUMMARY: Plane A, Air Kerma: 3.0 mGy Dose Area Product (DAP): Fluoro Time: 0:24 min:sec Radiation dose exceed 5 Gy: No If radiation dose exceeded 5 Gy, was counseling and instructional brochure provided: N/A Anesthesia/sedation Level of anesthesia/sedation: No sedation Anesthesia/sedation administered by: Not applicable Total intra-service sedation time (minutes): 0 Local anesthesia: 2 % lidocaine Right genitourinary catheter exchange Local anesthesia was administered. Initial nephrostogram was performed. A wire was placed through the existing tube and it was removed. The new tube was advanced over the wire and position was confirmed with contrast injection. Pre-existing genitourinary catheter: 8 F argon skater nephrostomy Genitourinary catheter(s) placed: 10 F argon skater nephrostomy Findings: Moderate hydronephrosis External catheter securement: Non-absorbable suture Left genitourinary catheter exchange Local anesthesia was administered. Initial nephrostogram was performed. A wire was placed through the existing tube and it was removed. The new tube was advanced over the wire and position was confirmed with contrast injection. Pre-existing genitourinary catheter: 8 F argon skater nephrostomy Genitourinary catheter(s) placed: 10 F argon skater nephrostomy Findings: Severe hydronephrosis External catheter securement: Non-absorbable suture Additional genitourinary system intervention Genitourinary intervention: None Location of intervention: Not applicable Device used: Not applicable Description of intervention: Not applicable Post-intervention findings: Not applicable Additional Details Additional description of procedure: None Equipment details: None Estimated blood loss (mL): Less than 10 Number and Type of Removed Specimens: 0: N/A Standardized report: [email or web address] Complications There were no immediate complications and no other complications. Conclusion The patient was comfortable and was transferred to the recovery room in stable condition. The procedure was performed by the: attending radiologist, without an certified pathology assistant. The attending radiologist performed the fo (more content not included)... [facility] * * *Final Report* * * DATE OF EXAM: Sep 29 2024 11:16AM [facility] [id number] - IR NEPHROSTOGRAM BILAT / PROCEDURE REASON: * * * * Physician Interpretation * * * * PROCEDURE: GENITOURINARY CATHETER EXCHANGE Procedural Personnel Attending physician(s): Ghulam Rivera D.O. Fellow physician(s): None Resident physician(s): None Advanced practice provider(s): None Medical Student(s): None Pre-procedure diagnosis: Hydronephrosis Post-procedure diagnosis: Same Indication: Routine scheduled exchange Additional clinical history: Upsize of bilateral tubes requested by urology PROCEDURE SUMMARY - Target organ: Bilateral [place] kidneys - Antegrade nephrostogram(s) via the existing access - Nephrostomy tube exchange - Additional procedure(s): None PROCEDURE DETAILS: Pre-procedure Consent: Risks, benefits, treatment options, potential complications and personnel to be involved were discussed (including the risks of radiation exposure, contrast and anesthesia administration, and any equipment needed for the procedure to ensure best possible outcome) with the patient and all questions were answered and consent was obtained prior to procedure. Premedicated for contrast allergy: n/a Transfusion of blood products: No Medication reconciliation: The patient's medications and allergies were reviewed in the electronic medical record and reconciled to the proposed procedure/treatment. Dia-procedure discussion: The appropriate elements of the pre-procedure discussion, safety check list and sign-out were performed. Time out: A time out was performed immediately prior to procedure start with the nursing and interventional team, correctly identifying the name, date of , procedure, anatomy (including marking of site and side if applicable), patient position, procedure consent form, relevant diagnostic and radiology test results, antibiotic administration if applicable, safety precautions, and procedure-specific equipment needs. Start of procedure: 1103 End of procedure: 1117 Patient position: Prone Preparation: The site was prepared and draped using all elements of maximal sterile barrier technique including sterile gloves, sterile gown, cap, mask, large sterile sheet, hand hygiene and cutaneous antisepsis. Antibiotics: None Antibiotic infusion start time: N/A Prophylactic antibiotic administered: None Additional med: None Additional med: None Contrast Contrast agent: VISPAQUE 270 Contrast volume (mL): 10 Image Guidance: Fluoroscopic guidance. Radiation Dose FLUOROSCOPIC RADIATION SUMMARY: Plane A, Air Kerma: 3.0 mGy Dose Area Product (DAP): Fluoro Time: 0:24 min:sec Radiation dose exceed 5 Gy: No If radiation dose exceeded 5 Gy, was counseling and instructional brochure provided: N/A Anesthesia/sedation Level of anesthesia/sedation: No sedation Anesthesia/sedation administered by: Not applicable Total intra-service sedation time (minutes): 0 Local anesthesia: 2 % lidocaine Right genitourinary catheter exchange Local anesthesia was administered. Initial nephrostogram was performed. A wire was placed through the existing tube and it was removed. The new tube was advanced over the wire and position was confirmed with contrast injection. Pre-existing genitourinary catheter: 8 F argon skater nephrostomy Genitourinary catheter(s) placed: 10 F argon skater nephrostomy Findings: Moderate hydronephrosis External catheter securement: Non-absorbable suture Left genitourinary catheter exchange Local anesthesia was administered. Initial nephrostogram was performed. A wire was placed through the existing tube and it was removed. The new tube was advanced over the wire and position was confirmed with contrast injection. Pre-existing genitourinary catheter: 8 F argon skater nephrostomy Genitourinary catheter(s) placed: 10 F argon skater nephrostomy Findings: Severe hydronephrosis External catheter securement: Non-absorbable suture Additional genitourinary system intervention Genitourinary intervention: None Location of intervention: Not applicable Device used: Not applicable Description of intervention: Not applicable Post-intervention findings: Not applicable Additional Details Additional description of procedure: None Equipment details: None Estimated blood loss (mL): Less than 10 Number and Type of Removed Specimens: 0: N/A Standardized report: [email or web address] Complications There were no immediate complications and no other complications. Conclusion The patient was comfortable and was transferred to the recovery room in stable condition. The procedure was performed by the: attending radiologist, without an a (more content not included)... [facility] Radiology Study observation (narrative) [facility] Basic metabolic 2000 panelon 09-08-2024 Anion gap [Moles/Vol] 9 mmol/L Normal 5-16 [facility] Comment on above: Order Comment: Speci men Type: BLOOD SPECIMENOrdering Facility: [facility] Address: [address] [place] [address] Performed By: #### 2 4321-2 ####[facility] LABORATORYCLIA [id number] [place] [address] [place] Calcium [Mass/Vol] 8.9 mg/dL Normal 8.5-10.5 [facility] Comment on above: Order Comment: Speci men Type: BLOOD SPECIMENOrdering Facility: [facility] Address: [address] [place] [address] Performed By: #### 2 4321-2 ####[facility] LABORATORYCLIA [id number] [place] [address] [place] Chloride [Moles/Vol] 106 mmol/L Normal 98-107 [facility] Comment on above: Order Comment: Speci men Type: BLOOD SPECIMENOrdering Facility: [facility] Address: [address] [place] [address] Performed By: #### 2 4321-2 ####[facility] LABORATORYCLIA [id number] [place] [address] [place] CO2 [Moles/Vol] 22 mmol/L Normal 21-32 [facility] Comment on above: Order Comment: Speci men Type: BLOOD SPECIMENOrdering Facility: [facility] Address: [address] [place] [address] Performed By: #### 2 4321-2 ####[facility] LABORATORYCLIA [id number] [place] [address] [place] Creatinine [Mass/Vol] 1.99 mg/dL High 0.51-0.95 [facility] Comment on above: Order Comment: Speci men Type: BLOOD SPECIMENOrdering Facility: [facility] Address: [address] [place] [address] Result Comment: Mayda ents receiving either N-Acetylcysteine (NAC) or Metamizole prior to venipuncture, may have falsely depressed results. Performed By: #### 2 4321-2 ####[facility] LABORATORYCLIA [id number] [address] Creatinine and Glomerular filtration rate.predicted panel (S/P/Bld) 26 mL/min/1.73m??? Low >=60 [facility] Comment on above: Order Comment: Abdon lyles Type: BLOOD SPECIMENOrdering Facility: [facility] Address: [address] [place] [address] Result Comment: Judith mated Glomerular Filtration Rate (eGFR) is calculated using the 2020 CKD-EPI creatinine equation. This equation utilizes serum creatinine, sex, and age as parameters. The creatinine assay has traceable calibration to isotope dilution-mass spectrometry. Refer to KDIGO guidelines for clinical interpretation. In patients with unstable renal function, e.g. those with acute kidney injury, the eGFR may not accurately reflect actual GFR. Performed By: #### 2 4321-2 ####[facility] LABORATORYCLIA [id number] [place] [address] [place] Glucose [Mass/Vol] 81 mg/dL Normal 70-100 [facility] Comment on above: Order Comment: Abdon lyles Type: BLOOD SPECIMENOrdering Facility: [facility] Address: [address] [place] [address] Result Comment: The [place] [employer] (ADA) provides guidance for cutoff values for fasting glucose and random glucose. The ADA defines fasting as no caloric intake for at least 8 hours. Fasting plasma glucose results between 100 to 125 mg/dL indicate increased risk for diabetes (prediabetes).Fasting plasma glucose results greater than or equal to 126 mg/dL meet the criteria for diagnosis of diabetes. In the absence of unequivocal hyperglycemia, results should be confirmed by repeat testing. In a patient with classic symptoms of hyperglycemia or hyperglycemic crisis, random plasma glucose results greater than or equal to 200 mg/dL meet the criteria for diagnosis of diabetes.Reference: Standards of Medical Care in Diabetes 2016, [place] [employer]. Diabetes Care. 2016.39(Suppl 1).Results may be falsely elevated after the administration of Sulfapyridine.Results may be falsely depressed after the administration of Sulfasalazine. Performed By: #### 2 4321-2 ####[facility] LABORATORYCLIA [id number] [place] [address] [place] Potassium [Moles/Vol] 3.7 mmol/L Normal 3.5-5.1 [facility] Comment on above: Order Comment: Abdon lyles Type: BLOOD SPECIMENOrdering Facility: [facility] Address: [address] [place] [address] Performed By: #### 2 4321-2 ####[facility] LABORATORYCLIA [id number] [place] [address] [place] Sodium [Moles/Vol] 137 mmol/L Normal 136-145 [facility] Comment on above: Order Comment: Abdon lyles Type: BLOOD SPECIMENOrdering Facility: [facility] Address: [address] [place] [address] Performed By: #### 2 4321-2 ####[facility] LABORATORYCLIA [id number] [place] [address] [place] Urea nitrogen [Mass/Vol] 25 mg/dL Normal 7-26 [facility] Comment on above: Order Comment: Abdon lyles Type: BLOOD SPECIMENOrdering Facility: [facility] Address: [address] [place] [address] Performed By: #### 2 4321-2 ####[facility] LABORATORYCLIA [id number] [place] [address] [place] CBC W Auto Differential pane l (Bld)on 09-08-2024 Basophils (Bld) [#/Vol] 0.10 10*3/uL Normal <0.11 [facility] Comment on above: Order Comment: Speci men Type: BLOOD SPECIMENOrdering Facility: [facility] Address: [address] [place] [address] Performed By: #### 5 7021-8 ####[facility] LABORATORYCLIA [id number] [place] [id number] [place] Basophils/100 WBC (Bld) 1.0 % Normal [facility] Comment on above: Order Comment: Speci men Type: BLOOD SPECIMENOrdering Facility: [facility] Address: [address] [place] [address] Performed By: #### 5 7021-8 ####[facility] LABORATORYCLIA [id number] [place] [address] [place] Differential cell count method Nom (Bld) Manual Normal [facility] Comment on above: Order Comment: Speci men Type: BLOOD SPECIMENOrdering Facility: [facility] Address: [address] [place] [address] Performed By: #### 5 7021-8 ####[facility] LABORATORYCLIA [id number] [place] [address] [place] Eosinophils (Bld) [#/Vol] 0.20 10*3/uL Normal <0.46 [facility] Comment on above: Order Comment: Speci men Type: BLOOD SPECIMENOrdering Facility: [facility] Address: [address] [place] [address] Performed By: #### 5 7021-8 ####[facility] LABORATORYCLIA [id number] [place] [address] [place] Eosinophils/100 WBC (Bld) 2.0 % Normal [facility] Comment on above: Order Comment: Speci men Type: BLOOD SPECIMENOrdering Facility: [facility] Address: [address] [place] [address] Performed By: #### 5 7021-8 ####[facility] LABORATORYCLIA [id number] [place] [address] [place] Erythrocyte distribution width (RBC) [Ratio] 13.9 % Normal 11.5-15.0 [facility] Comment on above: Order Comment: Speci men Type: BLOOD SPECIMENOrdering Facility: [facility] Address: [address] [place] [address] Performed By: #### 5 7021-8 ####[facility] LABORATORYCLIA [id number] [place] [id number] [place] Hematocrit (Bld) [Volume fraction] 36.7 % Normal 36.0-46.0 [facility] Comment on above: Order Comment: Speci men Type: BLOOD SPECIMENOrdering Facility: [facility] Address: [address] [place] [address] Performed By: #### 5 7021-8 ####[facility] LABORATORYCLIA [id number] [place] [address] [place] Hemoglobin (Bld) [Mass/Vol] 11.8 g/dL Normal 11.5-15.5 [facility] Comment on above: Order Comment: Speci men Type: BLOOD SPECIMENOrdering Facility: [facility] Address: [address] [place] [address] Performed By: #### 5 7021-8 ####[facility] LABORATORYCLIA [id number] [place] [address] [place] Lymphocytes (Bld) [#/Vol] 4.18 10*3/uL High 1.00-4.00 [facility] Comment on above: Order Comment: Speci men Type: BLOOD SPECIMENOrdering Facility: [facility] Address: [address] [place] [address] Performed By: #### 5 7021-8 ####[facility] LABORATORYCLIA [id number] [place] [id number] [place] Lymphocytes/100 WBC (Bld) 42.0 % Normal [facility] Comment on above: Order Comment: Speci men Type: BLOOD SPECIMENOrdering Facility: [facility] Address: [address] [place] [address] Performed By: #### 5 7021-8 ####[facility] LABORATORYCLIA [id number] [address] [place] [facility] MCH (RBC) [Entitic mass] 29.4 pg Normal 26.0-34.0 [facility] Comment on above: Order Comment: Speci men Type: BLOOD SPECIMENOrdering Facility: [facility] Address: [address] [place] [address] Performed By: #### 5 7021-8 ####[facility] LABORATORYCLIA [id number] [address] [place] MCHC (RBC) [Mass/Vol] 32.2 g/dL Normal 30.5-36.0 [facility] Comment on above: Order Comment: Speci men Type: BLOOD SPECIMENOrdering Facility: [facility] Address: [address] [place] [address] Performed By: #### 5 7021-8 ####[facility] LABORATORYCLIA [id number] [address] OF [facility] MCV (RBC) [Entitic vol] 91.3 fL Normal 80.0-100.0 [facility] Comment on above: Order Comment: Speci men Type: BLOOD SPECIMENOrdering Facility: [facility] Address: [address] [place] [address] Performed By: #### 5 7021-8 ####[facility] LABORATORYCLIA [id number] [address] Monocytes (Bld) [#/Vol] 0.50 10*3/uL Normal <0.87 [facility] Comment on above: Order Comment: Speci men Type: BLOOD SPECIMENOrdering Facility: [facility] Address: [address] [place] [address] Performed By: #### 5 7021-8 ####[facility] LABORATORYCLIA [id number] [address] [place] Monocytes/100 WBC (Bld) 5.0 % Normal [facility] Comment on above: Order Comment: Speci men Type: BLOOD SPECIMENOrdering Facility: [facility] Address: [address] [place] [address] Performed By: #### 5 7021-8 ####[facility] LABORATORYCLIA [id number] [place] [address] [place] Neutrophils (Bld) [#/Vol] 4.98 10*3/uL Normal 1.45-7.50 [facility] Comment on above: Order Comment: Speci men Type: BLOOD SPECIMENOrdering Facility: [facility] Address: [address] [place] [address] Performed By: #### 5 7021-8 ####[facility] LABORATORYCLIA [id number] [place] [address] [place] Neutrophils/100 WBC (Bld) 50.0 % Normal [facility] Comment on above: Order Comment: Speci men Type: BLOOD SPECIMENOrdering Facility: [facility] Address: [address] [place] [address] Performed By: #### 5 7021-8 ####[facility] LABORATORYCLIA [id number] [place] [address] [place] Nucleated RBC (Bld) [#/Vol] 10*3/uL Normal <0.01 [facility] Comment on above: Order Comment: Speci men Type: BLOOD SPECIMENOrdering Facility: [facility] Address: [address] [place] [address] Performed By: #### 5 7021-8 ####[facility] LABORATORYCLIA [id number] [place] [address] [place] Nucleated RBC/100 WBC (Bld) [Ratio] 0.0 /100 WBC Normal [facility] Comment on above: Order Comment: Speci men Type: BLOOD SPECIMENOrdering Facility: [facility] Address: [address] [place] [address] Performed By: #### 5 7021-8 ####[facility] LABORATORYCLIA [id number] [place] [address] [place] Ovalocytes LM Ql (Bld) Few Normal [facility] Comment on above: Order Comment: Speci men Type: BLOOD SPECIMENOrdering Facility: [facility] Address: [address] [place] [address] Performed By: #### 5 7021-8 ####[facility] LABORATORYCLIA [id number] [place] [address] [place] Platelet mean volume (Bld) [Entitic vol] 9.8 fL Normal 9.0-12.7 [facility] Comment on above: Order Comment: Speci men Type: BLOOD SPECIMENOrdering Facility: [facility] Address: [address] [place] [address] Performed By: #### 5 7021-8 ####[facility] LABORATORYCLIA [id number] [place] [address] [place] Platelets (Bld) [#/Vol] 314 10*3/uL Normal 150-400 [facility] Comment on above: Order Comment: Speci men Type: BLOOD SPECIMENOrdering Facility: [facility] Address: [address] [place] [address] Performed By: #### 5 7021-8 ####[facility] LABORATORYCLIA [id number] [place] [address] [place] Platelets Estimate (Bld) [#/Vol] Adequate Normal [facility] Comment on above: Order Comment: Speci men Type: BLOOD SPECIMENOrdering Facility: [facility] Address: [address] [place] [address] Performed By: #### 5 7021-8 ####[facility] LABORATORYCLIA [id number] [place] [address] [place] Polychromasia LM Ql (Bld) Slight Normal [facility] Comment on above: Order Comment: Speci men Type: BLOOD SPECIMENOrdering Facility: [facility] Address: [address] [place] [address] Performed By: #### 5 7021-8 ####[facility] LABORATORYCLIA [id number] [address] [place] RBC (Bld) [#/Vol] 4.02 10*6/uL Normal 3.90-5.20 [facility] Comment on above: Order Comment: Speci men Type: BLOOD SPECIMENOrdering Facility: [facility] Address: [address] [place] [address] Performed By: #### 5 7021-8 ####[facility] LABORATORYCLIA [id number] [place] [address] [place] RED CELL MORPH Reviewed: see result s of individual morphologies Normal [facility] Comment on above: Order Comment: Speci men Type: BLOOD SPECIMENOrdering Facility: [facility] Address: [address] [place] [address] Performed By: #### 5 7021-8 ####[facility] LABORATORYCLIA [id number] [place] [address] [place] WBC (Bld) [#/Vol] 9.96 10*3/uL Normal 3.70-11.00 [facility] Comment on above: Order Comment: Speci men Type: BLOOD SPECIMENOrdering Facility: [facility] Address: [address] [place] [address] Performed By: #### 5 7021-8 ####[facility] LABORATORYCLIA [id number] [place] [address] [place] CNDSon 09-08-2024 CNDS Normal [facility] THERAPY NTon 09-08-2024 THERAPY NT [facility] THERAPY NT [facility] Bacteria Ur Culton 4 Bacteria identified Cx Nom (U) Normal [facility] Comment on above: Performed By: #### 6 30-4 ####[facility] LABORATORYCLIA [id number] [place] [address] [place] Basic metabolic 2000 panelon 09-07-2024 Anion gap [Moles/Vol] 11 mmol/L Normal 5-16 [facility] Comment on above: Order Comment: Speci men Type: BLOOD SPECIMENOrdering Facility: [facility] Address: [address] [place] [address] Performed By: #### 2 4321-2 ####[facility] LABORATORYCLIA [id number] [place] [address] [place] Calcium [Mass/Vol] 9.3 mg/dL Normal 8.5-10.5 [facility] Comment on above: Order Comment: Speci men Type: BLOOD SPECIMENOrdering Facility: [facility] Address: [address] [place] [address] Performed By: #### 2 4321-2 ####[facility] LABORATORYCLIA [id number] [place] [address] [place] Chloride [Moles/Vol] 106 mmol/L Normal 98-107 [facility] Comment on above: Order Comment: Speci men Type: BLOOD SPECIMENOrdering Facility: [facility] Address: [address] [place] [address] Performed By: #### 2 4321-2 ####[facility] LABORATORYCLIA [id number] [place] [address] [place] CO2 [Moles/Vol] 22 mmol/L Normal 21-32 [facility] Comment on above: Order Comment: Speci men Type: BLOOD SPECIMENOrdering Facility: [facility] Address: [address] [place] [address] Performed By: #### 2 4321-2 ####[facility] LABORATORYCLIA [id number] [place] [address] [place] Creatinine [Mass/Vol] 1.87 mg/dL High 0.51-0.95 [facility] Comment on above: Order Comment: Speci men Type: BLOOD SPECIMENOrdering Facility: [facility] Address: [address] [place] [address] Result Comment: Mayda ents receiving either N-Acetylcysteine (NAC) or Metamizole prior to venipuncture, may have falsely depressed results. Performed By: #### 2 4321-2 ####[facility] LABORATORYCLIA [id number] [place] [address] [place] Creatinine and Glomerular filtration rate.predicted panel (S/P/Bld) 28 mL/min/1.73m??? Low >=60 [facility] Comment on above: Order Comment: Abdon lyles Type: BLOOD SPECIMENOrdering Facility: [facility] Address: [address] [place] [address] Result Comment: Judith mated Glomerular Filtration Rate (eGFR) is calculated using the 2020 CKD-EPI creatinine equation. This equation utilizes serum creatinine, sex, and age as parameters. The creatinine assay has traceable calibration to isotope dilution-mass spectrometry. Refer to KDIGO guidelines for clinical interpretation. In patients with unstable renal function, e.g. those with acute kidney injury, the eGFR may not accurately reflect actual GFR. Performed By: #### 2 4321-2 ####[facility] LABORATORYCLIA [id number] [place] [address] [place] Glucose [Mass/Vol] 63 mg/dL Low 70-100 [facility] Comment on above: Order Comment: Abdon lyles Type: BLOOD SPECIMENOrdering Facility: [facility] Address: [address] [place] [address] Result Comment: The [place] Diabetes [employer] (ADA) provides guidance for cutoff values for fasting glucose and random glucose. The ADA defines fasting as no caloric intake for at least 8 hours. Fasting plasma glucose results between 100 to 125 mg/dL indicate increased risk for diabetes (prediabetes).Fasting plasma glucose results greater than or equal to 126 mg/dL meet the criteria for diagnosis of diabetes. In the absence of unequivocal hyperglycemia, results should be confirmed by repeat testing. In a patient with classic symptoms of hyperglycemia or hyperglycemic crisis, random plasma glucose results greater than or equal to 200 mg/dL meet the criteria for diagnosis of diabetes.Reference: Standards of Medical Care in Diabetes 2016, [place] [employer]. Diabetes Care. 2016.39(Suppl 1).Results may be falsely elevated after the administration of Sulfapyridine.Results may be falsely depressed after the administration of Sulfasalazine. Performed By: #### 2 4321-2 ####[facility] LABORATORYCLIA [id number] [place] [id number] [place] Potassium [Moles/Vol] 4.4 mmol/L Normal 3.5-5.1 [facility] Comment on above: Order Comment: Speci men Type: BLOOD SPECIMENOrdering Facility: [facility] Address: [address] [place] [address] Performed By: #### 2 4321-2 ####[facility] LABORATORYCLIA [id number] [place] [id number] [place] Sodium [Moles/Vol] 139 mmol/L Normal 136-145 [facility] Comment on above: Order Comment: Speci men Type: BLOOD SPECIMENOrdering Facility: [facility] Address: [address] [place] [address] Performed By: #### 2 4321-2 ####[facility] LABORATORYCLIA [id number] [place] [address] [place] Urea nitrogen [Mass/Vol] 23 mg/dL Normal 7-26 [facility] Comment on above: Order Comment: Speci men Type: BLOOD SPECIMENOrdering Facility: [facility] Address: [address] [place] [address] Performed By: #### 2 4321-2 ####[facility] LABORATORYCLIA [id number] [place] [address] [place] CBC W Auto Differential pane l (Bld)on 09-07-2024 Basophils (Bld) [#/Vol] 0.07 10*3/uL Normal <0.11 [facility] Comment on above: Order Comment: Speci men Type: BLOOD SPECIMENOrdering Facility: [facility] Address: [address] [place] [address] Performed By: #### 5 7021-8 ####[facility] LABORATORYCLIA [id number] [place] [address] [place] Basophils/100 WBC (Bld) 0.6 % Normal [facility] Comment on above: Order Comment: Speci men Type: BLOOD SPECIMENOrdering Facility: [facility] Address: [address] [place] [address] Performed By: #### 5 7021-8 ####[facility] LABORATORYCLIA [id number] [address] [place] Differential cell count method Nom (Bld) Auto Normal [facility] Comment on above: Order Comment: Speci men Type: BLOOD SPECIMENOrdering Facility: [facility] Address: [address] [place] [address] Performed By: #### 5 7021-8 ####[facility] LABORATORYCLIA [id number] [place] [address] [place] Eosinophils (Bld) [#/Vol] 0.13 10*3/uL Normal <0.46 [facility] Comment on above: Order Comment: Speci men Type: BLOOD SPECIMENOrdering Facility: [facility] Address: [address] [place] [address] Performed By: #### 5 7021-8 ####[facility] LABORATORYCLIA [id number] [address] [place] Eosinophils/100 WBC (Bld) 1.1 % Normal [facility] Comment on above: Order Comment: Speci men Type: BLOOD SPECIMENOrdering Facility: [facility] Address: [address] [place] [address] Performed By: #### 5 7021-8 ####[facility] LABORATORYCLIA [id number] [address] [place] Erythrocyte distribution width (RBC) [Ratio] 14.1 % Normal 11.5-15.0 [facility] Comment on above: Order Comment: Speci men Type: BLOOD SPECIMENOrdering Facility: [facility] Address: [address] [place] [address] Performed By: #### 5 7021-8 ####[facility] LABORATORYCLIA [id number] [address] [place] Hematocrit (Bld) [Volume fraction] 39.3 % Normal 36.0-46.0 [facility] Comment on above: Order Comment: Speci men Type: BLOOD SPECIMENOrdering Facility: [facility] Address: [address] [place] [address] Performed By: #### 5 7021-8 ####[facility] LABORATORYCLIA [id number] [place] [id number] [place] Hemoglobin (Bld) [Mass/Vol] 12.4 g/dL Normal 11.5-15.5 [facility] Comment on above: Order Comment: Speci men Type: BLOOD SPECIMENOrdering Facility: [facility] Address: [address] [place] [address] Performed By: #### 5 7021-8 ####[facility] LABORATORYCLIA [id number] [place] [id number] [place] Immature granulocytes (Bld) [#/Vol] 0.07 10*3/uL Normal <0.10 [facility] Comment on above: Order Comment: Speci men Type: BLOOD SPECIMENOrdering Facility: [facility] Address: [address] [place] [address] Performed By: #### 5 7021-8 ####[facility] LABORATORYCLIA [id number] [place] [address] [place] Immature granulocytes/100 WBC (Bld) 0.6 % Normal [facility] Comment on above: Order Comment: Speci men Type: BLOOD SPECIMENOrdering Facility: [facility] Address: [address] [place] [address] Performed By: #### 5 7021-8 ####[facility] LABORATORYCLIA [id number] [place] [id number] [place] Lymphocytes (Bld) [#/Vol] 4.67 10*3/uL High 1.00-4.00 [facility] Comment on above: Order Comment: Speci men Type: BLOOD SPECIMENOrdering Facility: [facility] Address: [address] [place] [address] Performed By: #### 5 7021-8 ####[facility] LABORATORYCLIA [id number] [place] [id number] [place] Lymphocytes/100 WBC (Bld) 38.3 % Normal [facility] Comment on above: Order Comment: Speci men Type: BLOOD SPECIMENOrdering Facility: [facility] Address: [address] [place] [address] Performed By: #### 5 7021-8 ####[facility] LABORATORYCLIA [id number] [place] [id number] [place] MCH (RBC) [Entitic mass] 28.8 pg Normal 26.0-34.0 [facility] Comment on above: Order Comment: Speci men Type: BLOOD SPECIMENOrdering Facility: [facility] Address: [address] [place] [address] Performed By: #### 5 7021-8 ####[facility] LABORATORYCLIA [id number] [address] [place] MCHC (RBC) [Mass/Vol] 31.6 g/dL Normal 30.5-36.0 [facility] Comment on above: Order Comment: Speci men Type: BLOOD SPECIMENOrdering Facility: [facility] Address: [address] [place] [address] Performed By: #### 5 7021-8 ####[facility] LABORATORYCLIA [id number] [place] [address] [place] MCV (RBC) [Entitic vol] 91.4 fL Normal 80.0-100.0 M [facility] Comment on above: Order Comment: Speci men Type: BLOOD SPECIMENOrdering Facility: [facility] Address: [address] [place] [address] Performed By: #### 5 7021-8 ####[facility] LABORATORYCLIA [id number] [place] [address] [place] Monocytes (Bld) [#/Vol] 0.93 10*3/uL High <0.87 [facility] Comment on above: Order Comment: Speci men Type: BLOOD SPECIMENOrdering Facility: [facility] Address: [address] [place] [address] Performed By: #### 5 7021-8 ####[facility] LABORATORYCLIA [id number] [place] [address] [place] Monocytes/100 WBC (Bld) 7.6 % Normal [facility] Comment on above: Order Comment: Speci men Type: BLOOD SPECIMENOrdering Facility: [facility] Address: [address] [place] [address] Performed By: #### 5 7021-8 ####[facility] LABORATORYCLIA [id number] [place] [address] [place] Neutrophils (Bld) [#/Vol] 6.32 10*3/uL Normal 1.45-7.50 [facility] Comment on above: Order Comment: Speci men Type: BLOOD SPECIMENOrdering Facility: [facility] Address: [address] [place] [address] Performed By: #### 5 7021-8 ####[facility] LABORATORYCLIA [id number] [place] [address] [place] Neutrophils/100 WBC (Bld) 51.8 % Normal [facility] Comment on above: Order Comment: Speci men Type: BLOOD SPECIMENOrdering Facility: [facility] Address: [address] [place] [address] Performed By: #### 5 7021-8 ####[facility] LABORATORYCLIA [id number] [place] [address] [place] Nucleated RBC (Bld) [#/Vol] 10*3/uL Normal <0.01 [facility] Comment on above: Order Comment: Speci men Type: BLOOD SPECIMENOrdering Facility: [facility] Address: [address] [place] [address] Performed By: #### 5 7021-8 ####[facility] LABORATORYCLIA [id number] [place] [address] [place] Nucleated RBC/100 WBC (Bld) [Ratio] 0.0 /100 WBC Normal [facility] Comment on above: Order Comment: Speci men Type: BLOOD SPECIMENOrdering Facility: [facility] Address: [address] [place] [address] Performed By: #### 5 7021-8 ####[facility] LABORATORYCLIA [id number] [place] [id number] [place] Platelet mean volume (Bld) [Entitic vol] 9.8 fL Normal 9.0-12.7 [facility] Comment on above: Order Comment: Speci men Type: BLOOD SPECIMENOrdering Facility: [facility] Address: [address] [place] [address] Performed By: #### 5 7021-8 ####[facility] LABORATORYCLIA [id number] [place] [address] [place] Platelets (Bld) [#/Vol] 325 10*3/uL Normal 150-400 [facility] Comment on above: Order Comment: Speci men Type: BLOOD SPECIMENOrdering Facility: [facility] Address: [address] [place] [address] Performed By: #### 5 7021-8 ####[facility] LABORATORYCLIA [id number] [address] [place] RBC (Bld) [#/Vol] 4.30 10*6/uL Normal 3.90-5.20 [facility] Comment on above: Order Comment: Speci men Type: BLOOD SPECIMENOrdering Facility: [facility] Address: [address] [place] [address] Performed By: #### 5 7021-8 ####[facility] LABORATORYCLIA [id number] [place] [address] [place] WBC (Bld) [#/Vol] 12.19 10*3/uL High 3.70-11.00 [facility] Comment on above: Order Comment: Speci men Type: BLOOD SPECIMENOrdering Facility: [facility] Address: [address] [place] [address] Performed By: #### 5 7021-8 ####[facility] LABORATORYCLIA [id number] [place] [id number] [facility] [place] URINALYSIS, REFLEX MICROSCOP ICon 09-07-2024 Bacteria LM.HPF (Urine sed) [#/Area] Few Abnormal None Seen [facility] Comment on above: Order Comment: Speci men Type: URINE SPECIMENOrdering Facility: [facility] Address: [address] [place] [address] Performed By: #### L [id number] ####[facility] LABORATORYCLIA [id number] [place] [address] [place] Bilirubin Ql (U) Negative Normal Negative [facility] Comment on above: Order Comment: Speci men Type: URINE SPECIMENOrdering Facility: [facility] Address: [address] [place] [address] Performed By: #### L [id number] ####[facility] LABORATORYCLIA [id number] [address] [place] Clarity (Unsp spec) Hazy Abnormal Clear [facility] Comment on above: Order Comment: Speci men Type: URINE SPECIMENOrdering Facility: [facility] Address: [address] [place] [address] Performed By: #### L [id number] ####[facility] LABORATORYCLIA [id number] [address] [place] Color (U) Yellow Normal Yellow [facility] Comment on above: Order Comment: Speci men Type: URINE SPECIMENOrdering Facility: [facility] Address: [address] [place] [address] Performed By: #### L [id number] ####[facility] LABORATORYCLIA [id number] [address] [place] Epithelial cells LM.HPF (Urine sed) [#/Area] None Seen Normal [facility] Comment on above: Order Comment: Speci men Type: URINE SPECIMENOrdering Facility: [facility] Address: [address] [place] [address] Performed By: #### L [id number] ####[facility] LABORATORYCLIA [id number] [place] [address] [place] Glucose Test strip (U) [Mass/Vol] Negative Normal Negative [facility] Comment on above: Order Comment: Speci men Type: URINE SPECIMENOrdering Facility: [facility] Address: [address] [place] [address] Performed By: #### L [id number] ####[facility] LABORATORYCLIA [id number] [address] [place] Hemoglobin Ql (U) 1+ Abnormal Negative [facility] Comment on above: Order Comment: Speci men Type: URINE SPECIMENOrdering Facility: [facility] Address: [address] [place] [address] Performed By: #### L [id number] ####[facility] LABORATORYCLIA [id number] [address] [place] Ketones Ql (U) 1+ Abnormal Negative [facility] Comment on above: Order Comment: Speci men Type: URINE SPECIMENOrdering Facility: [facility] Address: [address] [place] [address] Performed By: #### L [id number] ####[facility] LABORATORYCLIA [id number] [address] [place] Leukocyte esterase Test strip Ql (U) 3+ Abnormal Negative [facility] Comment on above: Order Comment: Speci men Type: URINE SPECIMENOrdering Facility: [facility] Address: [address] [place] [address] Performed By: #### L [id number] ####[facility] LABORATORYCLIA [id number] [place] [address] [place] Nitrite Ql (U) Negative Normal Negative [facility] Comment on above: Order Comment: Speci men Type: URINE SPECIMENOrdering Facility: [facility] Address: [address] [place] [address] Performed By: #### L [id number] ####[facility] LABORATORYCLIA [id number] [address] [place] pH (U) 6.0 [pH] Normal 5.0-8.0 [facility] Comment on above: Order Comment: Speci men Type: URINE SPECIMENOrdering Facility: [facility] Address: [address] [place] [address] Performed By: #### L [id number] ####[facility] LABORATORYCLIA [id number] [place] [address] [place] Protein (U) [Mass/Vol] 1+ Abnormal Negative [facility] Comment on above: Order Comment: Speci men Type: URINE SPECIMENOrdering Facility: [facility] Address: [address] [place] [address] Performed By: #### L [id number] ####[facility] LABORATORYCLIA [id number] [address] [place] RBC LM.HPF (Urine sed) [#/Area] 6-10 /HPF Abnormal 0-3 /HPF [facility] Comment on above: Order Comment: Speci men Type: URINE SPECIMENOrdering Facility: [facility] Address: [address] [place] [address] Performed By: #### L [id number] ####[facility] LABORATORYCLIA [id number] [address] Specific gravity (U) [Rel density] 1.012 Normal 1.005-1.03 0 [facility] Comment on above: Order Comment: Speci men Type: URINE SPECIMENOrdering Facility: [facility] Address: [address] [place] [address] Performed By: #### L [id number] ####[facility] LABORATORYCLIA [id number] [address] [place] Urobilinogen Ql (U) Negative Normal Negative [facility] Comment on above: Order Comment: Speci men Type: URINE SPECIMENOrdering Facility: [facility] Address: [address] [place] [address] Performed By: #### L [id number] ####[facility] LABORATORYCLIA [id number] [place] [address] [place] WBC LM.HPF (Urine sed) [#/Area] /[HPF] Abnormal 0-5 /HPF [facility] Comment on above: Order Comment: Speci men Type: URINE SPECIMENOrdering Facility: [facility] Address: [address] [place] [address] Performed By: #### L [id number] ####[facility] LABORATORYCLIA [id number] [place] [address] [place] CONSULTon 09-06-2024 CONSULT Normal [facility] HISTORY PHYSICALon HISTORY PHYSICAL Normal [facility] Guidance for exchange of nep hrostomy tube of Kidneyon 06-16-2024 * * *Final Report* * * DATE OF EXAM: Jun 16 2024 11:18AM [facility] 0777 - IR EXCHANGE NEPH TUBE / PROCEDURE REASON: Hydronephrosis * * * * Physician Interpretation * * * * NEPHROSTOGRAM: Left RECANALIZATION OF NEPHROSTOMY TRACT AND PLACEMENT OF NEPHROSTOMY TUBE: Left CLINICAL DATA: Hydronephrosis. The existing left nephrostomy tube has been partially pulled out. The referring physician has requested recanalization of the nephrostomy tract to place a new nephrostomy tube through the old tract. COMPARISON: 05/13/2024. TECHNIQUE AND FINDINGS: The advantages, alternatives, and potential complications of nephrostogram, recanalization of the nephrostomy tract and placement / exchange of a nephrostomy tube (including but not limited to bleeding, infection, damage of surrounding organs, inability to regain access to the kidney with need for new nephrostomy tube placement, adverse reaction to intraprocedure medications, and aggravation of existing medical conditions, among others) were discussed with the patient who understood the discussion and provided consent for the procedure. The preprocedural lab values were in acceptable range for the procedure. Time out was performed prior to the study. Fluoroscopic evaluation of the back area showed that existing left nephrostomy tube is in the soft tissues of the left flank area and probably completely out of the collecting system. The patient's back was cleaned, prepped and draped. Maximal sterile barrier technique was used throughout the complete procedure. Local anesthesia was given to the soft tissues with lidocaine 1%. The left nephrostomy tube was injected with contrast confirming that the pigtail portion of the tube is out of the collecting system. The locking mechanism of the tube was released and a Glidewire was advanced into the tube. The nephrostomy tube was then removed. A 5 Fr Berenstein catheter was advanced over the wire into the nephrostomy tract. The angiographic catheter and wire were then gently advanced to regain access to the collecting system and renal pelvis. Injection of contrast confirmed adequate intraluminal position of the angiographic catheter. The Glidewire was exchanged with an Amplatz guidewire. Over the stiff wire, a 8 Fr self locking nephrostomy tube was advanced placing its pigtail portion at the renal pelvis. Final nephrostogram confirmed adequate position and function of the tube. The tube was secured to the skin with 2 stitches and attached to gravity drainage. The patient tolerated the procedure well and was discharged from the IR suite in stable condition. There were no immediate complications. Cumulative dose: 129.9 mGy Fluoroscopy time: 11:24 minutes. Estimated blood loss: Less than 10 cc. Medications: Lidocaine 1% 10 cc. Contrast: 15 mL of Visipaque 270. [facility] Provider, [facility] - 06/16/2024 * * *Final Report* * * DATE OF EXAM: Jun 16 2024 11:18AM [facility] 0777 - IR EXCHANGE NEPH TUBE / PROCEDURE REASON: Hydronephrosis * * * * Physician Interpretation * * * * NEPHROSTOGRAM: Left RECANALIZATION OF NEPHROSTOMY TRACT AND PLACEMENT OF NEPHROSTOMY TUBE: Left CLINICAL DATA: Hydronephrosis. The existing left nephrostomy tube has been partially pulled out. The referring physician has requested recanalization of the nephrostomy tract to place a new nephrostomy tube through the old tract. COMPARISON: 05/13/2024. TECHNIQUE AND FINDINGS: The advantages, alternatives, and potential complications of nephrostogram, recanalization of the nephrostomy tract and placement / exchange of a nephrostomy tube (including but not limited to bleeding, infection, damage of surrounding organs, inability to regain access to the kidney with need for new nephrostomy tube placement, adverse reaction to intraprocedure medications, and aggravation of existing medical conditions, among others) were discussed with the patient who understood the discussion and provided consent for the procedure. The preprocedural lab values were in acceptable range for the procedure. Time out was performed prior to the study. Fluoroscopic evaluation of the back area showed that existing left nephrostomy tube is in the soft tissues of the left flank area and probably completely out of the collecting system. The patient's back was cleaned, prepped and draped. Maximal sterile barrier technique was used throughout the complete procedure. Local anesthesia was given to the soft tissues with lidocaine 1%. The left nephrostomy tube was injected with contrast confirming that the pigtail portion of the tube is out of the collecting system. The locking mechanism of the tube was released and a Glidewire was advanced into the tube. The nephrostomy tube was then removed. A 5 Fr Berenstein catheter was advanced over the wire into the nephrostomy tract. The angiographic catheter and wire were then gently advanced to regain access to the collecting system and renal pelvis. Injection of contrast confirmed adequate intraluminal position of the angiographic catheter. The Glidewire was exchanged with an Amplatz guidewire. Over the stiff wire, a 8 Fr self locking nephrostomy tube was advanced placing its pigtail portion at the renal pelvis. Final nephrostogram confirmed adequate position and function of the tube. The tube was secured to the skin with 2 stitches and attached to gravity drainage. The patient tolerated the procedure well and was discharged from the IR suite in stable condition. There were no immediate complications. Cumulative dose: 129.9 mGy Fluoroscopy time: 11:24 minutes. Estimated blood loss: Less than 10 cc. Medications: Lidocaine 1% 10 cc. Contrast: 15 mL of Visipaque 270. IMPRESSION IMPRESSION: 1. Successful recanalization of the partially removed left nephrostomy tube as described above. The new tube has adequate position and function. 2. No immediate complications. 3. Nephrostomy tube exchange in 8 to 10 weeks is recommended. Application Integration Engineer: LADARIUS Transcribe Date/Time: Jun 16 2024 8:45P Dictated by : GERALDO CAMPBELL MD This examination was interpreted and the report reviewed and electronically signed by: GERALDO CAMPBELL MD on Jun 16 2024 10:30PM [facility] No Panel Informationon 06-16 IMPRESSION: 1. Successful recanalization of the partially removed left nephrostomy tube as described above. The new tube has adequate position and function. 2. No immediate complications. 3. Nephrostomy tube exchange in 8 to 10 weeks is recommended. Application Integration Engineer: LADARIUS Transcribe Date/Time: Jun 16 2024 8:45P Dictated by : GERALDO CAMPBELL MD This examination was interpreted and the report reviewed and electronically signed by: GERALDO CAMPBELL MD on Jun 16 2024 10:30PM [facility] Radiology Study observation (narrative) Jordan Barbosa No Panel InformationOrdered By: [facility] Provider on 06-16-2024 [facility] RF Kidney and Ureter and Uri nary bladder Views W contrast via nephrostomy tubeon 06-16-2024 * * *Final Report* * * DATE OF EXAM: Jun 16 2024 11:18AM [facility] 0778 - IR NEPHROSTOGRAM / PROCEDURE REASON: Hydronephrosis * * * * Physician Interpretation * * * * NEPHROSTOGRAM: Left RECANALIZATION OF NEPHROSTOMY TRACT AND PLACEMENT OF NEPHROSTOMY TUBE: Left CLINICAL DATA: Hydronephrosis. The existing left nephrostomy tube has been partially pulled out. The referring physician has requested recanalization of the nephrostomy tract to place a new nephrostomy tube through the old tract. COMPARISON: 05/13/2024. TECHNIQUE AND FINDINGS: The advantages, alternatives, and potential complications of nephrostogram, recanalization of the nephrostomy tract and placement / exchange of a nephrostomy tube (including but not limited to bleeding, infection, damage of surrounding organs, inability to regain access to the kidney with need for new nephrostomy tube placement, adverse reaction to intraprocedure medications, and aggravation of existing medical conditions, among others) were discussed with the patient who understood the discussion and provided consent for the procedure. The preprocedural lab values were in acceptable range for the procedure. Time out was performed prior to the study. Fluoroscopic evaluation of the back area showed that existing left nephrostomy tube is in the soft tissues of the left flank area and probably completely out of the collecting system. The patient's back was cleaned, prepped and draped. Maximal sterile barrier technique was used throughout the complete procedure. Local anesthesia was given to the soft tissues with lidocaine 1%. The left nephrostomy tube was injected with contrast confirming that the pigtail portion of the tube is out of the collecting system. The locking mechanism of the tube was released and a Glidewire was advanced into the tube. The nephrostomy tube was then removed. A 5 Fr Berenstein catheter was advanced over the wire into the nephrostomy tract. The angiographic catheter and wire were then gently advanced to regain access to the collecting system and renal pelvis. Injection of contrast confirmed adequate intraluminal position of the angiographic catheter. The Glidewire was exchanged with an Amplatz guidewire. Over the stiff wire, a 8 Fr self locking nephrostomy tube was advanced placing its pigtail portion at the renal pelvis. Final nephrostogram confirmed adequate position and function of the tube. The tube was secured to the skin with 2 stitches and attached to gravity drainage. The patient tolerated the procedure well and was discharged from the IR suite in stable condition. There were no immediate complications. Cumulative dose: 129.9 mGy Fluoroscopy time: 11:24 minutes. Estimated blood loss: Less than 10 cc. Medications: Lidocaine 1% 10 cc. Contrast: 15 mL of Visipaque 270. [facility] Provider, [facility] - 06/16/2024 * * *Final Report* * * DATE OF EXAM: Jun 16 2024 11:18AM [facility] - NEPHROSTOGRAM / PROCEDURE REASON: Hydronephrosis * * * * Physician Interpretation * * * * NEPHROSTOGRAM: Left RECANALIZATION OF NEPHROSTOMY TRACT AND PLACEMENT OF NEPHROSTOMY TUBE: Left CLINICAL DATA: Hydronephrosis. The existing left nephrostomy tube has been partially pulled out. The referring physician has requested recanalization of the nephrostomy tract to place a new nephrostomy tube through the old tract. COMPARISON: 05/13/2024. TECHNIQUE AND FINDINGS: The advantages, alternatives, and potential complications of nephrostogram, recanalization of the nephrostomy tract and placement / exchange of a nephrostomy tube (including but not limited to bleeding, infection, damage of surrounding organs, inability to regain access to the kidney with need for new nephrostomy tube placement, adverse reaction to intraprocedure medications, and aggravation of existing medical conditions, among others) were discussed with the patient who understood the discussion and provided consent for the procedure. The preprocedural lab values were in acceptable range for the procedure. Time out was performed prior to the study. Fluoroscopic evaluation of the back area showed that existing left nephrostomy tube is in the soft tissues of the left flank area and probably completely out of the collecting system. The patient's back was cleaned, prepped and draped. Maximal sterile barrier technique was used throughout the complete procedure. Local anesthesia was given to the soft tissues with lidocaine 1%. The left nephrostomy tube was injected with contrast confirming that the pigtail portion of the tube is out of the collecting system. The locking mechanism of the tube was released and a Glidewire was advanced into the tube. The nephrostomy tube was then removed. A 5 Fr Berenstein catheter was advanced over the wire into the nephrostomy tract. The angiographic catheter and wire were then gently advanced to regain access to the collecting system and renal pelvis. Injection of contrast confirmed adequate intraluminal position of the angiographic catheter. The Glidewire was exchanged with an Amplatz guidewire. Over the stiff wire, a 8 Fr self locking nephrostomy tube was advanced placing its pigtail portion at the renal pelvis. Final nephrostogram confirmed adequate position and function of the tube. The tube was secured to the skin with 2 stitches and attached to gravity drainage. The patient tolerated the procedure well and was discharged from the IR suite in stable condition. There were no immediate complications. Cumulative dose: 129.9 mGy Fluoroscopy time: 11:24 minutes. Estimated blood loss: Less than 10 cc. Medications: Lidocaine 1% 10 cc. Contrast: 15 mL of Visipaque 270. IMPRESSION IMPRESSION: 1. Successful recanalization of the partially removed left nephrostomy tube as described above. The new tube has adequate position and function. 2. No immediate complications. 3. Nephrostomy tube exchange in 8 to 10 weeks is recommended. Application Integration Engineer: [facility] Transcribe Date/Time: Jun 16 2024 8:45P Dictated by : GERALDO CAMPBELL MD This examination was interpreted and the report reviewed and electronically signed by: GERALDO CAMPBELL MD on Jun 16 2024 10:30PM [facility] No Panel Informationon 05-13 IMPRESSION: UNEVENTFUL EXCHANGE OF GENITOURINARY CATHETER(S) PLAN: Catheter may be allowed to drain passively into bag until next catheter exchange. Patient may return in approximately 8 weeks for routine exchange. Attestation Signer name: Jona Clark MD I attest that I was present for the entire procedure. I reviewed the stored images and agree with the report as written. Application Integration Engineer: [employer] Transcribe Date/Time: May 13 2024 12:19P Dictated by : JONA CLARK MD This examination was interpreted and the report reviewed and electronically signed by: JONA CLARK MD on May 13 2024 12:24PM [facility] Radiology Study observation (narrative) [facility] Panel InformationOrdered By: [facility] Provider on 05-13-2024 [facility] RF Guidance for exchange of nephrostomy tube of Kidney - bilateral-- W contraston 05-13-2024 * * *Final Report* * * DATE OF EXAM: May 13 2024 9:03AM [facility] [id number] - IR EXCHANGE NEPH TUBE BILAT / PROCEDURE REASON: routine bilateral neph exchange * * * * Physician Interpretation * * * * PROCEDURE: GENITOURINARY CATHETER EXCHANGE Procedural Personnel Attending physician(s): Jona Clark M.D. Fellow physician(s): None Resident physician(s): None Advanced practice provider(s): None Medical Student(s): None Pre-procedure diagnosis: Ureteral obstruction Post-procedure diagnosis: Same Indication: Routine scheduled exchange Additional clinical history: None PROCEDURE SUMMARY - Target organ: Bilateral [place] kidneys - Antegrade nephrostogram(s) via the existing access - Nephrostomy tube exchange - Additional procedure(s): None PROCEDURE DETAILS: Pre-procedure Consent: Risks, benefits, treatment options, potential complications and personnel to be involved were discussed (including the risks of radiation exposure, contrast and anesthesia administration, and any equipment needed for the procedure to ensure best possible outcome) with the patient and all questions were answered and consent was obtained prior to procedure. Premedicated for contrast allergy: n/a Transfusion of blood products: No Medication reconciliation: The patient's medications and allergies were reviewed in the electronic medical record and reconciled to the proposed procedure/treatment. Dia-procedure discussion: The appropriate elements of the pre-procedure discussion, safety check list and sign-out were performed. Time out: A time out was performed immediately prior to procedure start with the nursing and interventional team, correctly identifying the name, date of , procedure, anatomy (including marking of site and side if applicable), patient position, procedure consent form, relevant diagnostic and radiology test results, antibiotic administration if applicable, safety precautions, and procedure-specific equipment needs. Start of procedure: 0845 End of procedure: 0900 Patient position: Prone Preparation: The site was prepared and draped using all elements of maximal sterile barrier technique including sterile gloves, sterile gown, cap, mask, large sterile sheet, hand hygiene and cutaneous antisepsis. Antibiotics: None Antibiotic infusion start time: N/A Prophylactic antibiotic administered: None Additional med: None Additional med: None Contrast Contrast agent: Visipaque 270 Contrast volume (mL): 5 Image Guidance: Fluoroscopic guidance. Radiation Dose FLUOROSCOPIC RADIATION SUMMARY: Plane A, Air Kerma: 4.8 Dose Area Product (DAP): 1258 mGy-cm2 Fluoro Time: 0:48 min:sec Radiation dose exceed 5 Gy: No If radiation dose exceeded 5 Gy, was counseling and instructional brochure provided: N/A Anesthesia/sedation Level of anesthesia/sedation: No sedation Anesthesia/sedation administered by: Not applicable Local anesthesia: 1 % lidocaine Right genitourinary catheter exchange Local anesthesia was administered. Initial nephrostogram was performed. A wire was placed through the existing tube and it was removed. The new tube was advanced over the wire and position was confirmed with contrast injection. Pre-existing genitourinary catheter: 8 F [employer] nephrostomy Genitourinary catheter(s) placed: 8 F [employer] nephrostomy Findings: Well-positioned existing nephrostomy tube. No filling defects. No hydronephrosis. External catheter securement: Non-absorbable suture Left genitourinary catheter exchange Local anesthesia was administered. Initial nephrostogram was performed. A wire was placed through the existing tube and it was removed. The new tube was advanced over the wire and position was confirmed with contrast injection. Pre-existing genitourinary catheter: 8 F [employer] nephrostomy Genitourinary catheter(s) placed: 8 F [employer] nephrostomy Findings: Well-positioned existing nephrostomy tube. No filling defects. No hydronephrosis. External catheter securement: Non-absorbable suture Additional genitourinary system intervention Genitourinary intervention: None Location of intervention: Not applicable Device used: Not applicable Description of intervention: Not applicable Post-intervention findings: Not applicable Additional Details Additional description of procedure: None Equipment details: None Estimated blood loss (mL): Less than 10 Number and Type of Removed Specimens: 0: N/A Standardized report: [email or web address] Complications There were no immediate complications and no other complications. Conclusion The patient was comfortable and was transferred to the recovery room in stable condition. The procedure was performe (more content not included)... [facility] Provider, [facility] - 05/13/2024 * * *Final Report* * * DATE OF EXAM: May 13 2024 9:03AM [facility] [id number] - IR EXCHANGE NEPH TUBE BILAT / PROCEDURE REASON: routine bilateral neph exchange * * * * Physician Interpretation * * * * PROCEDURE: GENITOURINARY CATHETER EXCHANGE Procedural Personnel Attending physician(s): Jona Clark M.D. Fellow physician(s): None Resident physician(s): None Advanced practice provider(s): None Medical Student(s): None Pre-procedure diagnosis: Ureteral obstruction Post-procedure diagnosis: Same Indication: Routine scheduled exchange Additional clinical history: None PROCEDURE SUMMARY - Target organ: Bilateral [place] kidneys - Antegrade nephrostogram(s) via the existing access - Nephrostomy tube exchange - Additional procedure(s): None PROCEDURE DETAILS: Pre-procedure Consent: Risks, benefits, treatment options, potential complications and personnel to be involved were discussed (including the risks of radiation exposure, contrast and anesthesia administration, and any equipment needed for the procedure to ensure best possible outcome) with the patient and all questions were answered and consent was obtained prior to procedure. Premedicated for contrast allergy: n/a Transfusion of blood products: No Medication reconciliation: The patient's medications and allergies were reviewed in the electronic medical record and reconciled to the proposed procedure/treatment. Dia-procedure discussion: The appropriate elements of the pre-procedure discussion, safety check list and sign-out were performed. Time out: A time out was performed immediately prior to procedure start with the nursing and interventional team, correctly identifying the name, date of , procedure, anatomy (including marking of site and side if applicable), patient position, procedure consent form, relevant diagnostic and radiology test results, antibiotic administration if applicable, safety precautions, and procedure-specific equipment needs. Start of procedure: 0845 End of procedure: 0900 Patient position: Prone Preparation: The site was prepared and draped using all elements of maximal sterile barrier technique including sterile gloves, sterile gown, cap, mask, large sterile sheet, hand hygiene and cutaneous antisepsis. Antibiotics: None Antibiotic infusion start time: N/A Prophylactic antibiotic administered: None Additional med: None Additional med: None Contrast Contrast agent: Visipaque 270 Contrast volume (mL): 5 Image Guidance: Fluoroscopic guidance. Radiation Dose FLUOROSCOPIC RADIATION SUMMARY: Plane A, Air Kerma: 4.8 Dose Area Product (DAP): 1258 mGy-cm2 Fluoro Time: 0:48 min:sec Radiation dose exceed 5 Gy: No If radiation dose exceeded 5 Gy, was counseling and instructional brochure provided: N/A Anesthesia/sedation Level of anesthesia/sedation: No sedation Anesthesia/sedation administered by: Not applicable Local anesthesia: 1 % lidocaine Right genitourinary catheter exchange Local anesthesia was administered. Initial nephrostogram was performed. A wire was placed through the existing tube and it was removed. The new tube was advanced over the wire and position was confirmed with contrast injection. Pre-existing genitourinary catheter: 8 F [employer] nephrostomy Genitourinary catheter(s) placed: 8 F [employer] nephrostomy Findings: Well-positioned existing nephrostomy tube. No filling defects. No hydronephrosis. External catheter securement: Non-absorbable suture Left genitourinary catheter exchange Local anesthesia was administered. Initial nephrostogram was performed. A wire was placed through the existing tube and it was removed. The new tube was advanced over the wire and position was confirmed with contrast injection. Pre-existing genitourinary catheter: 8 F [employer] nephrostomy Genitourinary catheter(s) placed: 8 F [employer] nephrostomy Findings: Well-positioned existing nephrostomy tube. No filling defects. No hydronephrosis. External catheter securement: Non-absorbable suture Additional genitourinary system intervention Genitourinary intervention: None Location of intervention: Not applicable Device used: Not applicable Description of intervention: Not applicable Post-intervention findings: Not applicable Additional Details Additional description of procedure: None Equipment details: None Estimated blood loss (mL): Less than 10 Number and Type of Removed Specimens: 0: N/A Standardized report: [email or web address] Complications There were no immediate complications and no other complications. Conclusion The patient was comfortable and was transferred to the recovery room in (more content not included)... [facility] RF Kidney - bilateral Views W contrast via nephrostomy tubeon 05-13-2024 * * *Final Report* * * DATE OF EXAM: May 13 2024 9:03AM [facility] [id number] - IR NEPHROSTOGRAM BILAT / PROCEDURE REASON: routine bilateral neph exchange * * * * Physician Interpretation * * * * PROCEDURE: GENITOURINARY CATHETER EXCHANGE Procedural Personnel Attending physician(s): Jona Clark M.D. Fellow physician(s): None Resident physician(s): None Advanced practice provider(s): None Medical Student(s): None Pre-procedure diagnosis: Ureteral obstruction Post-procedure diagnosis: Same Indication: Routine scheduled exchange Additional clinical history: None PROCEDURE SUMMARY - Target organ: Bilateral [place] kidneys - Antegrade nephrostogram(s) via the existing access - Nephrostomy tube exchange - Additional procedure(s): None PROCEDURE DETAILS: Pre-procedure Consent: Risks, benefits, treatment options, potential complications and personnel to be involved were discussed (including the risks of radiation exposure, contrast and anesthesia administration, and any equipment needed for the procedure to ensure best possible outcome) with the patient and all questions were answered and consent was obtained prior to procedure. Premedicated for contrast allergy: n/a Transfusion of blood products: No Medication reconciliation: The patient's medications and allergies were reviewed in the electronic medical record and reconciled to the proposed procedure/treatment. Dia-procedure discussion: The appropriate elements of the pre-procedure discussion, safety check list and sign-out were performed. Time out: A time out was performed immediately prior to procedure start with the nursing and interventional team, correctly identifying the name, date of , procedure, anatomy (including marking of site and side if applicable), patient position, procedure consent form, relevant diagnostic and radiology test results, antibiotic administration if applicable, safety precautions, and procedure-specific equipment needs. Start of procedure: 0845 End of procedure: 0900 Patient position: Prone Preparation: The site was prepared and draped using all elements of maximal sterile barrier technique including sterile gloves, sterile gown, cap, mask, large sterile sheet, hand hygiene and cutaneous antisepsis. Antibiotics: None Antibiotic infusion start time: N/A Prophylactic antibiotic administered: None Additional med: None Additional med: None Contrast Contrast agent: Visipaque 270 Contrast volume (mL): 5 Image Guidance: Fluoroscopic guidance. Radiation Dose FLUOROSCOPIC RADIATION SUMMARY: Plane A, Air Kerma: 4.8 Dose Area Product (DAP): 1258 mGy-cm2 Fluoro Time: 0:48 min:sec Radiation dose exceed 5 Gy: No If radiation dose exceeded 5 Gy, was counseling and instructional brochure provided: N/A Anesthesia/sedation Level of anesthesia/sedation: No sedation Anesthesia/sedation administered by: Not applicable Local anesthesia: 1 % lidocaine Right genitourinary catheter exchange Local anesthesia was administered. Initial nephrostogram was performed. A wire was placed through the existing tube and it was removed. The new tube was advanced over the wire and position was confirmed with contrast injection. Pre-existing genitourinary catheter: 8 F [employer] nephrostomy Genitourinary catheter(s) placed: 8 F [employer] nephrostomy Findings: Well-positioned existing nephrostomy tube. No filling defects. No hydronephrosis. External catheter securement: Non-absorbable suture Left genitourinary catheter exchange Local anesthesia was administered. Initial nephrostogram was performed. A wire was placed through the existing tube and it was removed. The new tube was advanced over the wire and position was confirmed with contrast injection. Pre-existing genitourinary catheter: 8 F [employer] nephrostomy Genitourinary catheter(s) placed: 8 F [employer] nephrostomy Findings: Well-positioned existing nephrostomy tube. No filling defects. No hydronephrosis. External catheter securement: Non-absorbable suture Additional genitourinary system intervention Genitourinary intervention: None Location of intervention: Not applicable Device used: Not applicable Description of intervention: Not applicable Post-intervention findings: Not applicable Additional Details Additional description of procedure: None Equipment details: None Estimated blood loss (mL): Less than 10 Number and Type of Removed Specimens: 0: N/A Standardized report: [email or web address] Complications There were no immediate complications and no other complications. Conclusion The patient was comfortable and was transferred to the recovery room in stable condition. The procedure was performed by (more content not included)... [facility] Provider, Mayank Briggs - 05/13/2024 * * *Final Report* * * DATE OF EXAM: May 13 2024 9:03AM [facility] [id number] - IR NEPHROSTOGRAM BILAT / PROCEDURE REASON: routine bilateral neph exchange * * * * Physician Interpretation * * * * PROCEDURE: GENITOURINARY CATHETER EXCHANGE Procedural Personnel Attending physician(s): Jona Clark M.D. Fellow physician(s): None Resident physician(s): None Advanced practice provider(s): None Medical Student(s): None Pre-procedure diagnosis: Ureteral obstruction Post-procedure diagnosis: Same Indication: Routine scheduled exchange Additional clinical history: None PROCEDURE SUMMARY - Target organ: Bilateral [place] kidneys - Antegrade nephrostogram(s) via the existing access - Nephrostomy tube exchange - Additional procedure(s): None PROCEDURE DETAILS: Pre-procedure Consent: Risks, benefits, treatment options, potential complications and personnel to be involved were discussed (including the risks of radiation exposure, contrast and anesthesia administration, and any equipment needed for the procedure to ensure best possible outcome) with the patient and all questions were answered and consent was obtained prior to procedure. Premedicated for contrast allergy: n/a Transfusion of blood products: No Medication reconciliation: The patient's medications and allergies were reviewed in the electronic medical record and reconciled to the proposed procedure/treatment. Dia-procedure discussion: The appropriate elements of the pre-procedure discussion, safety check list and sign-out were performed. Time out: A time out was performed immediately prior to procedure start with the nursing and interventional team, correctly identifying the name, date of , procedure, anatomy (including marking of site and side if applicable), patient position, procedure consent form, relevant diagnostic and radiology test results, antibiotic administration if applicable, safety precautions, and procedure-specific equipment needs. Start of procedure: 0845 End of procedure: 0900 Patient position: Prone Preparation: The site was prepared and draped using all elements of maximal sterile barrier technique including sterile gloves, sterile gown, cap, mask, large sterile sheet, hand hygiene and cutaneous antisepsis. Antibiotics: None Antibiotic infusion start time: N/A Prophylactic antibiotic administered: None Additional med: None Additional med: None Contrast Contrast agent: Visipaque 270 Contrast volume (mL): 5 Image Guidance: Fluoroscopic guidance. Radiation Dose FLUOROSCOPIC RADIATION SUMMARY: Plane A, Air Kerma: 4.8 Dose Area Product (DAP): 1258 mGy-cm2 Fluoro Time: 0:48 min:sec Radiation dose exceed 5 Gy: No If radiation dose exceeded 5 Gy, was counseling and instructional brochure provided: N/A Anesthesia/sedation Level of anesthesia/sedation: No sedation Anesthesia/sedation administered by: Not applicable Local anesthesia: 1 % lidocaine Right genitourinary catheter exchange Local anesthesia was administered. Initial nephrostogram was performed. A wire was placed through the existing tube and it was removed. The new tube was advanced over the wire and position was confirmed with contrast injection. Pre-existing genitourinary catheter: 8 F [employer] nephrostomy Genitourinary catheter(s) placed: 8 F [employer] nephrostomy Findings: Well-positioned existing nephrostomy tube. No filling defects. No hydronephrosis. External catheter securement: Non-absorbable suture Left genitourinary catheter exchange Local anesthesia was administered. Initial nephrostogram was performed. A wire was placed through the existing tube and it was removed. The new tube was advanced over the wire and position was confirmed with contrast injection. Pre-existing genitourinary catheter: 8 F [employer] nephrostomy Genitourinary catheter(s) placed: 8 F [employer] nephrostomy Findings: Well-positioned existing nephrostomy tube. No filling defects. No hydronephrosis. External catheter securement: Non-absorbable suture Additional genitourinary system intervention Genitourinary intervention: None Location of intervention: Not applicable Device used: Not applicable Description of intervention: Not applicable Post-intervention findings: Not applicable Additional Details Additional description of procedure: None Equipment details: None Estimated blood loss (mL): Less than 10 Number and Type of Removed Specimens: 0: N/A Standardized report: [email or web address] Complications There were no immediate complications and no other complications. Conclusion The patient was comfortable and was transferred to the recovery room in (more content not included)... [facility] Serum or plasma thyroid stim ulating hormone (TSH) measurement (units/volume)Ordered By: Gerardo García on 03-17-2024 TSH Qn 2.11 uIU/mL 0.358-3.74 [facility] Absolute lymphocyte countOrd ered By: Julianna Matthews on 02-17-2024 Lymphocytes Auto (Unsp spec) [#/Vol] 4.47 10*3/uL 0.83-4.51 [facility] Automated lymphocyte count a s percentage of total leukocytesOrdered By: Julianna Matthews on 02-17-2024 Lymphocytes/100 WBC Auto (Unsp spec) 41.4 % 19-41 [facility] Basophil percentageOrdered B y: Julianna Matthews on 02-17-2024 Basophils/100 WBC (Bld) 0.5 % 0-1 [facility] [place] [facility] Chloride [Moles/Vol] 115 mmol/L 98-107 [facility] Eosinophils/100 WBC (Bld) 4.2 % 0-5 [facility] Glucose [Mass/Vol] 90 mg/dL 74-106 [facility] Hemoglobin (Bld) [Mass/Vol] 12.4 g/dL 12.0-15.0 [facility] Monocytes/100 WBC (Bld) 6.8 % 0-10 [facility] Neutrophils (Bld) [#/Vol] 5.1 10*3/uL 2.0-7.7 [facility] Neutrophils/100 WBC (Bld) 46.8 % 47-70 [facility] Potassium [Moles/Vol] 3.7 mmol/L 3.5-5.1 [facility] Sodium [Moles/Vol] 142 mmol/L 136-145 [facility] WBC (Bld) [#/Vol] 10.8 10*3/uL 4.4-11.0 [facility] Determination of erythrocyte mean corpuscular volume (MCV)Ordered By: Julianna Matthews on 02-17-2024 MCV (RBC) [Entitic vol] 99.2 fL 81-99 [facility] Erythrocyte distribution wid th ratioOrdered By: Julianna Matthews on 02-17-2024 Erythrocyte distribution width (RBC) [Ratio] 13.2 % 11.6-14.6 [facility] Erythrocyte distribution wid th standard deviationOrdered By: Julianna Matthews on 02-17-2024 Erythrocyte distribution width (RBC) [Entitic vol] 47.9 fL 35.1-43.9 [facility] Hematocrit Auto (Bld) [Volum e fraction]Ordered By: Julianna Matthews on 02-17-2024 Hematocrit (Bld) [Volume fraction] 38.0 % 37-47 [facility] Immature granulocytes/100 WB C Auto (Bld)Ordered By: Julianna Matthews on 02-17-2024 Immature granulocytes/100 WBC (Bld) 0.300 % 0.0-0.9 [facility] Comment on above: IG% - Immature Granu locytes (promyelocytes, myelocytes and metamyelocytes) > 1% indicates that a LEFT SHIFT is Present. Laboratory - Chemistry and C hemistry - challengeOrdered By: Julianna Matthews on 02-17-2024 CO2 [Moles/Vol] 22.0 mmol/L 21.0-32.0 [facility] Urea nitrogen/Creatinine [Mass ratio] 9.3 mg/mg 10-20 [facility] Laboratory - Hematology and Cell countsOrdered By: Julianna Matthews on 02-17-2024 MCH (RBC) [Entitic mass] 32.4 pg 27.0-32.0 [facility] MCHC (RBC) [Mass/Vol] 32.6 g/dL 32-36 [facility] Nucleated RBC/100 WBC (Bld) [Ratio] 0 % 0-5 [facility] Platelet mean volume (Bld) [Entitic vol] 10.4 fL 6.2-12.0 [facility] Platelets (Bld) [#/Vol] 305 10*3/uL 150-450 [facility] No Panel InformationOrdered By: Julianna Matthews on 02-17-2024 Estimated Creatinine Clearance Calc 32.13 ml/min [facility] Estimated GFR (MDRD) Amer 40 mL/min >60 [facility] Comment on above: GFR Calc Estimated GFR (MDRD) Non-Af Amer 33 mL/min >60 [facility] Comment on above: Non- GFR Calc RBC Auto (Bld) [#/Vol]Ordere d By: Julianna Matthews on 02-17-2024 RBC (Bld) [#/Vol] 3.83 10*6/uL 4.2-5.4 [facility] Serum or plasma calcium yunior urement (mass/volume)Ordered By: Julianna Matthews on 02-17-2024 Calcium [Mass/Vol] 8.7 mg/dL 8.5-10.1 [facility] Serum or plasma creatinine m easurement (mass/volume)Ordered By: Julianna Matthews on 02-17-2024 Creatinine [Mass/Vol] 1.62 mg/dL 0.55-1.02 [facility] Comment on above: The validity of the calculated GFR & GFRAA in patients over 70 years has not been determined. Clinical correlation is essential. Serum or plasma urea nitroge n measurement (mass/volume)Ordered By: Julianna Matthews on 02-17-2024 Urea nitrogen [Mass/Vol] 15 mg/dL 7-18 [facility] Thin prep Papanicolaou smear with manual screeningOrdered By: Julianna Matthews on 02-17-2024 Thin prep Papanicolaou smear with manual screening 5 5-15 [facility] Laboratory - Chemistry and C hemistry - challengeOrdered By: Julianna Matthews on 02-16-2024 Magnesium [Mass/Vol] 2.6 mg/dL 1.6-2.6 [facility] Basophil percentageOrdered B y: Andres Fraser on 02-15-2024 Basophil percentage 3.5 mg/dL 2.5-4.9 [facility] Bilirubin [Mass/Vol] 0.90 mg/dL 0.20-1.00 [facility] Comment on above: For patients on eltr ombopag therapy, use of Dim[place] TBIL is not recommended. Protein [Mass/Vol] 6.7 g/dL 6.4-8.2 [facility] Laboratory - Chemistry and C hemistry - challengeOrdered By: Andres Fraser on 02-15-2024 Albumin/Globulin [Mass ratio] 0.5 {ratio} 0.9-2.4 [facility] ALP [Catalytic activity/Vol] 83 U/L 45-117 [facility] ALT [Catalytic activity/Vol] U/L 13-56 [facility] Globulin (S) [Mass/Vol] 4.4 g/dL 2.2-4.2 [facility] Thin prep Papanicolaou smear with manual screeningOrdered By: Andres Fraser on 02-15-2024 Thin prep Papanicolaou smear with manual screening 2.3 g/dL 3.2-5.0 [facility] Thin prep Papanicolaou smear with manual screening 13 U/L 15-37 [facility] Absolute lymphocyte countOrd ered By: Altaf Villa on 02-14-2024 Lymphocytes Auto (Unsp spec) [#/Vol] 5.01 10*3/uL 0.83-4.51 [facility] Activated partial thrombopla stin time (aPTT) in platelet poor plasma by coagulation aOrdered By: Altaf Villa on 02-14-2024 aPTT Coag (PPP) [Time] 29.4 s 24.1-36.2 [facility] Automated lymphocyte count a s percentage of total leukocytesOrdered By: Altaf Villa on 02-14-2024 Lymphocytes/100 WBC Auto (Unsp spec) 30.3 % 19-41 [facility] Basophil percentageOrdered B y: Altaf Villa on 02-14-2024 Basophil percentage >100 SEEN /hpf 0-5 [facility] Basophils/100 WBC (Bld) 0.4 % 0-1 [facility] Bilirubin [Mass/Vol] 0.60 mg/dL 0.20-1.00 [facility] Comment on above: For patients on eltr ombopag therapy, use of [place] TBIL is not recommended. Chloride [Moles/Vol] 106 mmol/L 98-107 [facility] Eosinophils/100 WBC (Bld) 1.3 % 0-5 [facility] Glucose [Mass/Vol] 112 mg/dL 74-106 [facility] Comment on above: Fasting Glucose resu lt from 100 to 125 mg/dL suggests IMPAIRED HOMEOSTASIS per A.D.A. criteria. Hemoglobin (Bld) [Mass/Vol] 13.9 g/dL 12.0-15.0 [facility] Lactate [Moles/Vol] 1.0 mmol/L 0.4-2.0 [facility] Monocytes/100 WBC (Bld) 6.2 % 0-10 [facility] Neutrophils (Bld) [#/Vol] 10.2 10*3/uL 2.0-7.7 [facility] Neutrophils/100 WBC (Bld) 61.4 % 47-70 [facility] Potassium [Moles/Vol] 3.6 mmol/L 3.5-5.1 [facility] Protein [Mass/Vol] 8.0 g/dL 6.4-8.2 [facility] Sodium [Moles/Vol] 138 mmol/L 136-145 [facility] WBC (Bld) [#/Vol] 16.6 10*3/uL 4.4-11.0 [facility] Bilirubin Test strip Ql (U)O rdered By: Altaf Villa on 02-14-2024 Bilirubin Ql (U) Negative Negative [facility] Blood manual differential co mment interpretation (narrative result)Ordered By: Altaf Villa on 02-14-2024 Manual differential comment Pollo (Bld) [Interp] SEE COMMENT [facility] Comment on above: LYMPHOCYTOSIS NOTED Blood platelet adequacy dete ction by light microscopyOrdered By: Altaf Villa on 02-14-2024 Platelets LM Ql (Bld) ADEQUATE ADEQ [facility] Culture, urineOrdered By: Eric Villa on 02-14-2024 Bacteria identified Cx Nom (U) Pseudomonas aeruginosa [facility] Bacteria identified Cx Nom (U) Enterococcus faecalis [facility] Bacteria identified Cx Nom (U) Deandra albicans [facility] Determination of erythrocyte mean corpuscular volume (MCV)Ordered By: Altaf Villa on 02-14-2024 MCV (RBC) [Entitic vol] 97.0 fL 81-99 [facility] Erythrocyte distribution wid th ratioOrdered By: Altafclaudia Villa on 02-14-2024 Erythrocyte distribution width (RBC) [Ratio] 13.2 % 11.6-14.6 [facility] Erythrocyte distribution wid th standard deviationOrdered By: Altafclaudia Villa on 02-14-2024 Erythrocyte distribution width (RBC) [Entitic vol] 46.9 fL 35.1-43.9 [facility] Hematocrit Auto (Bld) [Volum e fraction]Ordered By: Altafclaudia Villa on 02-14-2024 Hematocrit (Bld) [Volume fraction] 41.8 % 37-47 [facility] Immature granulocytes/100 WB C Auto (Bld)Ordered By: Altafclaudia Villa on 02-14-2024 Immature granulocytes/100 WBC (Bld) 0.400 % 0.0-0.9 [facility] Comment on above: IG% - Immature Granu locytes (promyelocytes, myelocytes and metamyelocytes) > 1% indicates that a LEFT SHIFT is Present. Ketones Test strip Ql (U)Ord ered By: Altaf Villa on 02-14-2024 Ketones Ql (U) Negative Negative [facility] Laboratory - Chemistry and C hemistry - challengeOrdered By: Altafclaudia Villa on 02-14-2024 Albumin/Globulin [Mass ratio] 0.6 {ratio} 0.9-2.4 [facility] ALP [Catalytic activity/Vol] 104 U/L 45-117 [facility] ALT [Catalytic activity/Vol] 11 U/L 13-56 [facility] CO2 [Moles/Vol] 25.0 mmol/L 21.0-32.0 [facility] Globulin (S) [Mass/Vol] 5.1 g/dL 2.2-4.2 [facility] Urea nitrogen/Creatinine [Mass ratio] 12.0 mg/mg 10-20 [facility] Laboratory - CoagulationOrde red By: Altaf iVlla on 02-14-2024 INR Coag (Bld) [Relative time] 1.0 {INR} [facility] PT Coag (PPP) [Time] 13.4 s 11.7-14.9 [facility] Laboratory - Hematology and Cell countsOrdered By: Altaf Villa on 02-14-2024 Anisocytosis Ql (Bld) RARE [facility] MCH (RBC) [Entitic mass] 32.3 pg 27.0-32.0 [facility] MCHC (RBC) [Mass/Vol] 33.3 g/dL 32-36 [facility] Nucleated RBC/100 WBC (Bld) [Ratio] 0 % 0-5 [facility] Platelet mean volume (Bld) [Entitic vol] 10.5 fL 6.2-12.0 [facility] Platelets (Bld) [#/Vol] 376 10*3/uL 150-450 [facility] Laboratory - Microbiology an d Antimicrobial susceptibilityOrdered By: Altaf Villa on 02-14-2024 Bacteria identified Cx Nom (Bld) No growth in 5 days. [facility] Macrocytes detectionOrdered By: Altaf Villa on 02-14-2024 Macrocytes Ql (Bld) RARE [facility] Mucus LM Ql (Urine sed)Order ed By: Altaf Villa on 02-14-2024 Mucus Ql (Urine sed) 0 SEEN /hpf [facility] Nitrite Test strip Ql (U)Ord ered By: Altaf Villa on 02-14-2024 Nitrite Ql (U) Negative Negative [facility] No Panel InformationOrdered By: Altaf Villa on 02-14-2024 Urine RBC 10-25 SEEN /hpf 0-5 [facility] Atypical Lymphocytes 1+ % [facility] Estimated Creatinine Clearance Calc 29.74 ml/min [facility] Estimated GFR (MDRD) Amer 37 mL/min >60 [facility] Comment on above: GFR Calc Estimated GFR (MDRD) Non-Af Amer 30 mL/min >60 [facility] Comment on above: Non- GFR Calc Ovalocyte detectionOrdered B y: Altaf Villa on 02-14-2024 Ovalocytes LM Ql (Bld) RARE [facility] Protein Test strip Ql (U)Ord ered By: Altaf Villa on 02-14-2024 Protein Ql (U) 100 mg/dl Negative [facility] RBC Auto (Bld) [#/Vol]Ordere d By: Altaf Villa on 02-14-2024 RBC (Bld) [#/Vol] 4.31 10*6/uL 4.2-5.4 [facility] RBC morphologyOrdered By: Eric Villa on 02-14-2024 RBC morphology finding Nom (Bld) N CHROM NORMAL NORM C&C [facility] Serum or plasma calcium yunior urement (mass/volume)Ordered By: Altaf Villa on 02-14-2024 Calcium [Mass/Vol] 8.4 mg/dL 8.5-10.1 [facility] Serum or plasma creatinine m easurement (mass/volume)Ordered By: Altaf Villa on 02-14-2024 Creatinine [Mass/Vol] 1.75 mg/dL 0.55-1.02 [facility] Comment on above: The validity of the calculated GFR & GFRAA in patients over 70 years has not been determined. Clinical correlation is essential. Serum or plasma urea nitroge n measurement (mass/volume)Ordered By: Altaf Villa on 02-14-2024 Urea nitrogen [Mass/Vol] 21 mg/dL 7-18 [facility] Squamous epithelial cells de tection in urine sediment by light microscopyOrdered By: Altaf Villa on 02-14-2024 Epithelial cells.squamous LM Ql (Urine sed) 0 SEEN /hpf 5-10 [facility] Thin prep Papanicolaou smear with manual screeningOrdered By: Altaf Villa on 02-14-2024 Thin prep Papanicolaou smear with manual screening 2.9 g/dL 3.2-5.0 [facility] Thin prep Papanicolaou smear with manual screening 12 U/L 15-37 [facility] Thin prep Papanicolaou smear with manual screening 7 5-15 [facility] Transitional cells detection in urine sediment by light microscopyOrdered By: Altaf Villa on 02-14-2024 Transitional cells LM Ql (Urine sed) 0-5 SEEN /hpf 0-5 [facility] Urine blood detectionOrdered By: Altaf Villa on 02-14-2024 RBC Ql (U) 250 /ul Negative [facility] Urine clarityOrdered By: Altaf Villa on 02-14-2024 Clarity (U) Cloudy Clear [facility] Urine color determinationOrd ered By: Altaf Villa on 02-14-2024 Color (U) Yellow Yellow [facility] Urine glucose detectionOrder ed By: Altaf Villa on 02-14-2024 Glucose Ql (U) Normal mg/dl Normal [facility] Urine leukocyte esterase det ection by dipstickOrdered By: Altaf Villa on 02-14-2024 Leukocyte esterase Test strip Ql (U) 500 /ul Negative [facility] Urine pHOrdered By: Altaf avalos on 02-14-2024 pH (U) 6.5 [pH] 5.0 - 8.0 [facility] Urine sediment bacteria coun t by microscopy (number/high power field)Ordered By: Altaf Villa on 02-14-2024 Bacteria LM.HPF (Urine sed) [#/Area] RARE /hpf None Seen [facility] Urine sediment renal epithel ial cell count by microscopy (number/high power field)Ordered By: Altaf Villa on 02-14-2024 Epithelial cells.renal LM.HPF (Urine sed) [#/Area] 0 /[HPF] 0-5 [facility] Urine specific gravity measu rementOrdered By: Altaf Villa on 02-14-2024 Specific gravity (U) [Rel density] 1.010 1.002-1.03 0 [facility] Urine urobilinogen measureme ntOrdered By: Altaf Villa on 02-14-2024 Urobilinogen Ql (U) Normal mg/dl Normal [facility] Absolute lymphocyte countOrd ered By: Gerardo García on 02-04-2024 Lymphocytes Auto (Unsp spec) [#/Vol] 6.11 10*3/uL 0.83-4.51 [facility] Automated lymphocyte count a s percentage of total leukocytesOrdered By: Gerardo García on 02-04-2024 Lymphocytes/100 WBC Auto (Unsp spec) 44.3 % 19-41 [facility] Basophil percentageOrdered B y: Gerardo García on 02-04-2024 Basophils/100 WBC (Bld) 0.5 % 0-1 [facility] Bilirubin [Mass/Vol] 0.40 mg/dL 0.20-1.00 [facility] Comment on above: For patients on eltr ombopag therapy, use of [place] TBIL is not recommended. Chloride [Moles/Vol] 108 mmol/L 98-107 [facility] Cholesterol [Mass/Vol] 173 mg/dL <200 [facility] Comment on above: <200 mg/dL Desirable 200-240 mg/dL Borderline >240 mg/dL High Risk Eosinophils/100 WBC (Bld) 1.2 % 0-5 [facility] Glucose [Mass/Vol] 96 mg/dL 74-106 [facility] Hemoglobin (Bld) [Mass/Vol] 13.3 g/dL 12.0-15.0 [facility] Monocytes/100 WBC (Bld) 5.3 % 0-10 [facility] Neutrophils (Bld) [#/Vol] 6.7 10*3/uL 2.0-7.7 [facility] Neutrophils/100 WBC (Bld) 48.3 % 47-70 [facility] Potassium [Moles/Vol] 3.8 mmol/L 3.5-5.1 [facility] Protein [Mass/Vol] 8.4 g/dL 6.4-8.2 [facility] Sodium [Moles/Vol] 140 mmol/L 136-145 [facility] Triglyceride [Mass/Vol] 97 mg/dL <199 [facility] Comment on above: The drugs N-Acetylcy steine and Metamizole may falsely depress this assay.Serum Triglycerides Reference Interval Normal <150 mg/dL Borderline high 150 - 199 mg/dL High 200 - 499 mg/dL Very High > or = 500 mg/dL WBC (Bld) [#/Vol] 13.8 10*3/uL 4.4-11.0 [facility] Blood manual differential co mment interpretation (narrative result)Ordered By: Gerardo García on 02-04-2024 Manual differential comment Pollo (Bld) [Interp] SCANNED [facility] Determination of erythrocyte mean corpuscular volume (MCV)Ordered By: Gerardo García on 02-04-2024 MCV (RBC) [Entitic vol] 99.3 fL 81-99 [facility] Erythrocyte distribution wid th ratioOrdered By: Gerardo García on 02-04-2024 Erythrocyte distribution width (RBC) [Ratio] 13.5 % 11.6-14.6 [facility] Erythrocyte distribution wid th standard deviationOrdered By: Gerardo Ricky on 02-04-2024 Erythrocyte distribution width (RBC) [Entitic vol] 49.2 fL 35.1-43.9 [facility] Hematocrit Auto (Bld) [Volum e fraction]Ordered By: [facility] Ricky on 02-04-2024 Hematocrit (Bld) [Volume fraction] 41.6 % 37-47 [facility] Immature granulocytes/100 WB C Auto (Bld)Ordered By: [facility] on 02-04-2024 Immature granulocytes/100 WBC (Bld) 0.400 % 0.0-0.9 [facility] Comment on above: IG% - Immature Granu locytes (promyelocytes, myelocytes and metamyelocytes) > 1% indicates that a LEFT SHIFT is Present. Laboratory - Chemistry and C hemistry - challengeOrdered By: [facility] on 02-04-2024 Albumin/Globulin [Mass ratio] 0.5 {ratio} 0.9-2.4 [facility] ALP [Catalytic activity/Vol] 107 U/L 45-117 [facility] ALT [Catalytic activity/Vol] 12 U/L 13-56 [facility] Cholesterol in HDL [Mass/Vol] 44 mg/dL >40 [facility] Comment on above: The drugs N-Acetylcy steine and Metamizole may falsely depress this assay. Reference Range HDL <40 mg/dL Low HDL Cholesterol HDL >or= 60 mg/dL High HDL Cholesterol Cholesterol in LDL [Mass/Vol] 110 mg/dL 0-130 [facility] CO2 [Moles/Vol] 25.0 mmol/L 21.0-32.0 [facility] Globulin (S) [Mass/Vol] 5.5 g/dL 2.2-4.2 [facility] Urea nitrogen/Creatinine [Mass ratio] 10.4 mg/mg 10-20 [facility] Laboratory - Hematology and Cell countsOrdered By: Gerardo Ricky 02-04-2024 MCH (RBC) [Entitic mass] 31.7 pg 27.0-32.0 [facility] MCHC (RBC) [Mass/Vol] 32.0 g/dL 32-36 [facility] Nucleated RBC/100 WBC (Bld) [Ratio] 0 % 0-5 [facility] Platelet mean volume (Bld) [Entitic vol] 10.4 fL 6.2-12.0 [facility] Platelets (Bld) [#/Vol] 398 10*3/uL 150-450 [facility] No Panel InformationOrdered By: Gerardo García on 02-04-2024 Estimated GFR (MDRD) Amer 33 mL/min >60 [facility] Comment on above: GFR Calc Estimated GFR (MDRD) Non-Af Amer 27 mL/min >60 [facility] Comment on above: Non- GFR Calc Vitamin D 25-Hydroxy 56.2 ng/mL [facility] Comment on above: Vitamin D 25(OH) Sta tus Range Deficiency <20 ng/mL (50nmol/L) Insufficiency 20 - 30 ng/mL (50 - 75 nmol/L) Sufficiency 30 - 100 ng/mL (75 - 250 nmol/L) Toxicity >100 ng/mL (>250 nmol/L) VLDL Cholesterol 19 mg/dL 5-40 [facility] RBC Auto (Bld) [#/Vol]Ordere d By: Gerardo García on 02-04-2024 RBC (Bld) [#/Vol] 4.19 10*6/uL 4.2-5.4 [facility] Serum or plasma calcium yunior urement (mass/volume)Ordered By: Gerardo García on 02-04-2024 Calcium [Mass/Vol] 8.4 mg/dL 8.5-10.1 [facility] Serum or plasma creatinine m easurement (mass/volume)Ordered By: Gerardo García on 02-04-2024 Creatinine [Mass/Vol] 1.93 mg/dL 0.55-1.02 [facility] Comment on above: The validity of the calculated GFR & GFRAA in patients over 70 years has not been determined. Clinical correlation is essential. Serum or plasma thyroid stim ulating hormone (TSH) measurement (units/volume)Ordered By: Gerardo García on 02-04-2024 TSH Qn 3.91 uIU/mL 0.358-3.74 [facility] Serum or plasma urea nitroge n measurement (mass/volume)Ordered By: Gerardo García on 02-04-2024 Urea nitrogen [Mass/Vol] 20 mg/dL 7-18 [facility] Thin prep Papanicolaou smear with manual screeningOrdered By: Gerardo García on 02-04-2024 Thin prep Papanicolaou smear with manual screening 2.9 g/dL 3.2-5.0 [facility] Thin prep Papanicolaou smear with manual screening 15 U/L 15-37 [facility] Thin prep Papanicolaou smear with manual screening 7 5-15 [facility] BRIEF OP NOTon 01-01-2024 BRIEF OP NOT HNO ID: [id number] Author: JOS EL PATEL MD Service: Radiology Author Type: Physician Type: Brief Op Note Filed: 01/01/2024 13:28 Note Text: INTERVENTIONAL RADIOLOGY POST PROCEDURE NOTE DATE: 01/01/24 NAME: Todd Delong LOG ID: [id number] Pre-Procedure Diagnosis: Radiation cystitis with bilateral ureteral stenosis Controls Operator Molded Goods: Surgeon(s) and Role: * Jose L aPtel MD, MD - Primary Procedure: Bilateral nephrostogram and replace dislodged right PTN Anesthesia: Local Findings: Left PTN in good position. Urine clear. Some contrast passes through stent into bladder but need high pressure injection. On right PTN dislodged from kidney. New 8 Fr 35 cm Skater PTN placed back into renal pelvis. Urine slightly cloudy. Right stent migrated down ureter with pigtail just above ureteral stenosis. No contrast passes into bladder during right nephrostogram. Estimated Blood Loss: 0 ml Specimen: None Complications: None Post-Op/Post-Procedure Diagnosis: Radiation cystitis with bilateral ureteral stenosis Normal [facility] IR NEPHROSTOGRAMon IR NEPHROSTOGRAM * * *Final Report* * * DATE OF EXAM: Jan 01 2024 1:33PM [facility] [id number] - IR NEPHROSTOGRAM / PROCEDURE REASON: hydro * * * * Physician Interpretation * * * * EXAM TITLE: EXCHANGE OF RIGHT PERCUTANEOUS NEPHROSTOMY DRAINAGE CATHETER WITH BILATERAL NEPHROSTOGRAM DATE: January 01, 2024 at 12:22 PM COMPARISON: Previous nephrostograms from November 20, 2023 CLINICAL INDICATION/HISTORY: The patient is a 73-year-old female with radiation cystitis from treatment of cervical cancer. The patient is had indwelling stents and percutaneous drains and clinical request is for diagnostic bilateral nephrostograms to evaluate the ureter. The patient states that she has had the right percutaneous drain tugged. TECHNIQUE: The patient's vital signs were monitored during the procedure by the trained independent radiology nurse observer. The patient was placed in a prone. Fluoroscopy revealed that the right percutaneous pigtail drain is laterally displaced. Nephrostogram on the left side was performed. The skin entrance site of the right percutaneous nephrostomy drain was prepped and anesthetized. Contrast was injected into the PET and tube and then using guidewire exchange and Seldinger technique the catheter was removed and a 5 Tongan Berenstein catheter and angled Glidewire were used to successfully navigate the tract back into the right kidney. A new 35 cm 8 Tongan Skater APDL locking pigtail drain was placed back into the right renal collecting system. A final nephrostogram was performed. The right percutaneous nephrostomy catheter was secured to the skin and re-bandaged. There were no apparent complications. 5 minutes and 0 seconds of fluoroscopy time was utilized during the procedure. The patient was then discharged from the radiology department. 6 sets of fluoroscopic images were saved as well as 5 spot films. 10 cc of Omnipaque 300 was utilized for the entire study. Fluoroscopy Radiation dose: Integrated dose-area product (DAP) for this visit = 23 mGy*cm. FINDINGS: The left percutaneous drain enters through the inferior calyx and the pigtail was formed in the collapsed renal pelvis. Contrast would not pass into the bladder until 4 syringes of contrast were injected with pressure into the left renal collecting system. On the right side the percutaneous drain is outside the collecting system. The new drain passes through a complex upper pole and middle pole calyx with the pigtail formed in the renal pelvis. The right internal ureteral stent is displaced inferiorly with the pigtail in the ureter at the level of the S2 vertebral body just above what appears to be the distal right ureteral stenosis. No contrast passes into the bladder from a right nephrostogram. IMPRESSION: Technically successful replacement of dislodged right percutaneous nephrostomy drain. The right internal ureteral stent has migrated inferiorly with the pigtail formed just above the distal right ureteral complete obstruction. Excellent position of left percutaneous nephrostomy drain. The left internal ureteral stent is in good position but does not allow significant passage of contrast into the bladder unless a large amount of volume and pressure is placed in the left renal collecting system. Application Integration Engineer: [employer] Transcribe Date/Time: Jan 01 2024 1:52P Dictated by : JOSE L PATEL MD This examination was interpreted and the report reviewed and electronically signed by: JOSE L PATEL MD on Jan 01 2024 1:59PM EST [id number] Normal [facility] RF Kidney and Ureter and Uri nary bladder Views W contrast Mikael 01-01-2024 [facility] Basic metabolic 2000 panelon 12-24-2023 Anion gap [Moles/Vol] 8 mmol/L 5 - 16 mmol/L [facility] Calcium [Mass/Vol] 9.6 mg/dL 8.5 - 10. 5 mg/dL [facility] Chloride [Moles/Vol] 109 mmol/L High 98 - 10 7 mmol/L [facility] CO2 [Moles/Vol] 24 mmol/L 21 - 32 mmol/L [facility] Creatinine [Mass/Vol] 2.09 mg/dL High 0.51 - 0.95 mg/dL [facility] Estimated Glomerular Filtration Rate 25 mL/min/1.73m Low >=60 mL/min/1.7 3m [facility] Glucose [Mass/Vol] 96 mg/dL 70 - 100 mg/dL [facility] Potassium [Moles/Vol] 4.1 mmol/L 3.5 - 5.1 mmol/L [facility] Sodium [Moles/Vol] 141 mmol/L 136 - 145 mmol/L [facility] Urea nitrogen [Mass/Vol] 23 mg/dL 7 - 26 mg/dL [facility] CNPNon 12-20-2023 CNPN Telephone (SHAYE) -- TODD DELONG ([id number]) 1950 F Date Time Provider Department 12/20/23 JOEY STRANGE During your visit today, we recorded the following information about you: Joey Strange, RN 12/20/2023 1:35 PM Signed Jerry I am the home care nurse seeing this pt today for drain care. Pt's right nephrostomy tube site, the old dressing was saturated with yellow serous drainage (smelled of urine, last dressing change 1 week ago.) Pt reports that she has been waking up with my bed and clothes being damp recently in the past 2 weeks. No redness around site, pt denies c/o pain or fevers. Light yellow urine noted in both drainage bags. Pt has f/u with Dr. Antonio on Sunday. I also noted pt was hypertensive today, 160/90, recheck 160/86. Pt's BP has been trending up (initial home care readings at beginning of November were SBP around 112). Her HR was initially irregular at 100BPM, but on re-check her HR was regular at 84. Please call pt [phone] or pt's daughter [phone] for adivce. Thank you Allergies As of Date: 12/20/2023 Noted Allergy Reaction BACTRIM (SULFAMETHOXAZOLE) 01/04/2015 12 - Shortness of Breath INFLUENZA VIRUS VACCINES 01/04/2015 16 - Unknown PRAVASTATIN 01/04/2015 5 - Intolerance PREDNISONE 01/04/2015 16 - Unknown Date Reviewed: 11/30/2023 Reviewed by: Katy Pickering, OT/L - Fully Assessed Reason for Visit: Home Care [4073] Cmt: Drainage from right nephrostomy tube site, HTN Prescriptions as of 12/20/2023 - pantoprazole DR (PROTONIX) 40 mg tablet Take 40 mg by mouth once daily. - potassium chloride ER (KLOR-CON) 20 mEq tablet Take 20 mEq by mouth once daily. - amLODIPine (NORVASC) 2.5 mg tablet Take 2.5 mg by mouth once daily. - ALBUTEROL SULFATE (VENTOLIN INHALATION) Inhale 1 [place] as instructed every 4 hours as needed (wheezing/shortness of breath). - BECLOMETHASONE DIPROPIONATE (QVAR INHALATION) Inhale 1 Inhalation as instructed twice daily. Problem List As Of Date 12/20/2023 Noted Resolved Hypermature senile cataract - Both Eyes [H25.20]01/04/2015 Regular astigmatism - Both Eyes [H52.229] 01/04/2015 Essential hypertension [I10] 01/04/2015 High cholesterol [E78.00] 01/04/2015 Asthma [J45.909] 01/04/2015 S/P laser cataract surgery [Z98.49] 08/12/2015 Lens replaced by other means [Z96.1] 08/12/2015 09/27/2015 Astigmatism of left eye [H52.202] 08/30/2015 Pseudophakia, left eye [Z96.1] 08/30/2015 09/27/2015 LULY (acute kidney injury) (HCC) [N17.9] 10/10/2023 Bilateral hydronephrosis [N13.30] 10/10/2023 Leukocytosis [D72.829] 10/10/2023 Diarrhea [R19.7] 10/10/2023 Recurrent UTI [N39.0] 10/10/2023 Hydronephrosis [N13.30] 11/17/2023 Encounter Status:Closed by [facility] Tele[facility] (HCSIND) -- TODD DELONG ([id number]) 1950 F Date Time Provider Department 12/10/23 TAMIE BOONE During your visit today, we recorded the following information about you: Allergies As of Date: 12/10/2023 Noted Allergy Reaction BACTRIM (SULFAMETHOXAZOLE) 01/04/2015 12 - Shortness of Breath INFLUENZA VIRUS VACCINES 01/04/2015 16 - Unknown PRAVASTATIN 01/04/2015 5 - Intolerance PREDNISONE 01/04/2015 16 - Unknown Date Reviewed: 11/30/2023 Reviewed by: Katy Pickering, OT/L - Fully Assessed Reason for Visit: Home Care [4073] Cmt: FYI pt missed visit with Home care today. She is scheduled again later this week will re attempt. Prescriptions as of 12/10/2023 - pantoprazole DR (PROTONIX) 40 mg tablet Take 40 mg by mouth once daily. - potassium chloride ER (KLOR-CON) 20 mEq tablet Take 20 mEq by mouth once daily. - amLODIPine (NORVASC) 2.5 mg tablet Take 2.5 mg by mouth once daily. - ALBUTEROL SULFATE (VENTOLIN INHALATION) Inhale 1 [place] as instructed every 4 hours as needed (wheezing/shortness of breath). - BECLOMETHASONE DIPROPIONATE (QVAR INHALATION) Inhale 1 Inhalation as instructed twice daily. Problem List As Of Date 12/10/2023 Noted Resolved Hypermature senile cataract - Both Eyes [H25.20]01/04/2015 Regular astigmatism - Both Eyes [H52.229] 01/04/2015 Essential hypertension [I10] 01/04/2015 High cholesterol [E78.00] 01/04/2015 Asthma [J45.909] 01/04/2015 S/P laser cataract surgery [Z98.49] 08/12/2015 Lens replaced by other means [Z96.1] 08/12/2015 09/27/2015 Astigmatism of left eye [H52.202] 08/30/2015 Pseudophakia, left eye [Z96.1] 08/30/2015 09/27/2015 LULY (acute kidney injury) (HCC) [N17.9] 10/10/2023 Bilateral hydronephrosis [N13.30] 10/10/2023 Leukocytosis [D72.829] 10/10/2023 Diarrhea [R19.7] 10/10/2023 Recurrent UTI [N39.0] 10/10/2023 Hydronephrosis [N13.30] 11/17/2023 Encounter Status:Closed by TAMIE BOONE on 12/10/23 [facility] 11-29-2023 JEAN Telephone (HCSIND) -- JAVIERARTISTae Perla ([id number]) 1950 F Date Time Provider Department 11/29/23 JOEY FREED HCSIND During your visit today, we recorded the following information about you: Joey Freed, RN 11/29/2023 6:51 PM Signed Jerry, I am the home care nurse seeing this pt tonight for a PRN visit, pt is worried that her right nephrostomy tube is blocked because she has had decreased output from the tube. Pt reports about half has much urine from the right drain compared to the left. I flushed the right tube with 10ml NS, tube flushed easily, and clear yellow urine return noted. Pt has clear yellow urine noted in drainage bag as well. Pt denies c/o fevers, pain or chills. HR 111 noted. I taught pt and CG to record output from both tubes. If you have any further orders, please reply all, I have included pt's welfare case worker on this message as well. Or call pt with any other advice. [phone] Todd Delong Thank you! Jin Antonio MD 11/30/2023 3:03 PM Signed If the tube did not look like it had pulled out, have her measure the output from the 2 sites separately for 24 hours. If she is urinating per urethra, that could also account for the disparity. Allergies As of Date: 11/29/2023 Noted Allergy Reaction BACTRIM (SULFAMETHOXAZOLE) 01/04/2015 12 - Shortness of Breath INFLUENZA VIRUS VACCINES 01/04/2015 16 - Unknown PRAVASTATIN 01/04/2015 5 - Intolerance PREDNISONE 01/04/2015 16 - Unknown Date Reviewed: 11/28/2023 Reviewed by: Roe Mcgovern, PT - Fully Assessed Reason for Visit: Home Care [4073] Cmt: Decreased output from right nephrostomy tube Prescriptions as of 11/30/2023 - fluconazole (DIFLUCAN) 200 mg tablet Take 1 tablet by mouth once daily for 7 days. - pantoprazole DR (PROTONIX) 40 mg tablet Take 40 mg by mouth once daily. - potassium chloride ER (KLOR-CON) 20 mEq tablet Take 20 mEq by mouth once daily. - amLODIPine (NORVASC) 2.5 mg tablet Take 2.5 mg by mouth once daily. - ALBUTEROL SULFATE (VENTOLIN INHALATION) Inhale 1 [place] as instructed every 4 hours as needed (wheezing/shortness of breath). - BECLOMETHASONE DIPROPIONATE (QVAR INHALATION) Inhale 1 Inhalation as instructed twice daily. Problem List As Of Date 11/29/2023 Noted Resolved Hypermature senile cataract - Both Eyes [H25.20]01/04/2015 Regular astigmatism - Both Eyes [H52.229] 01/04/2015 Essential hypertension [I10] 01/04/2015 High cholesterol [E78.00] 01/04/2015 Asthma [J45.909] 01/04/2015 S/P laser cataract surgery [Z98.49] 08/12/2015 Lens replaced by other means [Z96.1] 08/12/2015 09/27/2015 Astigmatism of left eye [H52.202] 08/30/2015 Pseudophakia, left eye [Z96.1] 08/30/2015 09/27/2015 LULY (acute kidney injury) (HCC) [N17.9] 10/10/2023 Bilateral hydronephrosis [N13.30] 10/10/2023 Leukocytosis [D72.829] 10/10/2023 Diarrhea [R19.7] 10/10/2023 Recurrent UTI [N39.0] 10/10/2023 Hydronephrosis [N13.30] 11/17/2023 Encounter Status:Closed by JOEY FREED on 11/29/[address] [facility] TODD DEL[facility] ([id number]) 1950 F Date Time Provider Department 11/26/23 TRUDY HOWELL During your visit today, we recorded the following information about you: Trudy Howell RN 11/26/2023 12:05 PM Signed Hi SN Joanie SOC visit completed this date. B/L nephrostomy tubes assessed, dressings intact with old, bloody drainage noted. Per and d/c instructions AND referral, there are no orders for how SN/pt to manage nephrostomy tubes. Please advise the following: Do you want pt to flush nephrostomy tubes? If so, how much and how frequently? How often should the nephrostomy dressings be changed? You help and guidance with this matter would be greatly appreciated. Thank you, Trudy LIMA, RN Jeremy, Jin De Anda MD 11/26/2023 1:52 PM Signed The nephrostomy tubes do not need flushed routinely. Change the dressing prn Allergies As of Date: 11/26/2023 Noted Allergy Reaction BACTRIM (SULFAMETHOXAZOLE) 01/04/2015 12 - Shortness of Breath INFLUENZA VIRUS VACCINES 01/04/2015 16 - Unknown PRAVASTATIN 01/04/2015 5 - Intolerance PREDNISONE 01/04/2015 16 - Unknown Date Reviewed: 11/26/2023 Reviewed by: Trudy Howell, ANISH - Fully Assessed Reason for Visit: Home Care [4073] Cmt: Nephrostomy tube orders Prescriptions as of 12/10/2023 - pantoprazole DR (PROTONIX) 40 mg tablet Take 40 mg by mouth once daily. - potassium chloride ER (KLOR-CON) 20 mEq tablet Take 20 mEq by mouth once daily. - amLODIPine (NORVASC) 2.5 mg tablet Take 2.5 mg by mouth once daily. - ALBUTEROL SULFATE (VENTOLIN INHALATION) Inhale 1 [place] as instructed every 4 hours as needed (wheezing/shortness of breath). - BECLOMETHASONE DIPROPIONATE (QVAR INHALATION) Inhale 1 Inhalation as instructed twice daily. Problem List As Of Date 11/26/2023 Noted Resolved Hypermature senile cataract - Both Eyes [H25.20]01/04/2015 Regular astigmatism - Both Eyes [H52.229] 01/04/2015 Essential hypertension [I10] 01/04/2015 High cholesterol [E78.00] 01/04/2015 Asthma [J45.909] 01/04/2015 S/P laser cataract surgery [Z98.49] 08/12/2015 Lens replaced by other means [Z96.1] 08/12/2015 09/27/2015 Astigmatism of left eye [H52.202] 08/30/2015 Pseudophakia, left eye [Z96.1] 08/30/2015 09/27/2015 LULY (acute kidney injury) (HCC) [N17.9] 10/10/2023 Bilateral hydronephrosis [N13.30] 10/10/2023 Leukocytosis [D72.829] 10/10/2023 Diarrhea [R19.7] 10/10/2023 Recurrent UTI [N39.0] 10/10/2023 Hydronephrosis [N13.30] 11/17/2023 Encounter Status:Closed by TRUDY HOWELL on 12/10/[address] [facility] 11-24-2023 CNPN Telephone (HCSIND) -- TODD DELONG ([id number]) 1950 F Date Time Provider Department 11/24/23 PAZ CANO During your visit today, we recorded the following information about you: Paz Cano LPN 11/24/2023 3:27 PM Signed Allergies As of Date: 11/24/2023 Noted Allergy Reaction BACTRIM (SULFAMETHOXAZOLE) 01/04/2015 12 - Shortness of Breath INFLUENZA VIRUS VACCINES 01/04/2015 16 - Unknown PRAVASTATIN 01/04/2015 5 - Intolerance PREDNISONE 01/04/2015 16 - Unknown Date Reviewed: 11/21/2023 Reviewed by: Josephine Gamboa LPN - Fully Assessed Reason for Visit: Home Care [4073] Cmt: Nephrostomy tube orders. Prescriptions as of 11/24/2023 - fluconazole (DIFLUCAN) 200 mg tablet Take 1 tablet by mouth once daily for 7 days. - pantoprazole DR (PROTONIX) 40 mg tablet Take 40 mg by mouth once daily. - potassium chloride ER (KLOR-CON) 20 mEq tablet Take 20 mEq by mouth once daily. - amLODIPine (NORVASC) 2.5 mg tablet Take 2.5 mg by mouth once daily. - ALBUTEROL SULFATE (VENTOLIN INHALATION) Inhale 1 [place] as instructed every 4 hours as needed. - BECLOMETHASONE DIPROPIONATE (QVAR INHALATION) Inhale 1 Inhalation as instructed twice daily. Facility-Administered Medications as of 11/24/2023 - magnesium oxide 400 mg tab(s) (MAG-OX) - lactated ringers iv infusion - fluconazole 200 mg tab(s) (DIFLUCAN) - sodium chloride 0.9 % (flush) 10 mL (BD POSIFLUSH) - sodium chloride 0.9 % (flush) 10 mL (BD POSIFLUSH) - NaCl 0.9% iv flush bag - ondansetron 4 mg tab(s) (ZOFRAN) - ondansetron (PF) 4 mg injection (ZOFRAN) - acetaminophen 650 mg tab(s) (TYLENOL) - pantoprazole DR 40 mg tab(s) (PROTONIX) Problem List As Of Date 11/24/2023 Noted Resolved Hypermature senile cataract - Both Eyes [H25.20]01/04/2015 Regular astigmatism - Both Eyes [H52.229] 01/04/2015 Essential hypertension [I10] 01/04/2015 High cholesterol [E78.00] 01/04/2015 Asthma [J45.909] 01/04/2015 S/P laser cataract surgery [Z98.49] 08/12/2015 Lens replaced by other means [Z96.1] 08/12/2015 09/27/2015 Astigmatism of left eye [H52.202] 08/30/2015 Pseudophakia, left eye [Z96.1] 08/30/2015 09/27/2015 LULY (acute kidney injury) (HCC) [N17.9] 10/10/2023 Bilateral hydronephrosis [N13.30] 10/10/2023 Leukocytosis [D72.829] 10/10/2023 Diarrhea [R19.7] 10/10/2023 Recurrent UTI [N39.0] 10/10/2023 Hydronephrosis [N13.30] 11/17/2023 Encounter Status:Closed by CANO, PAZ on 11/24/[address] [facility] 11-23-2023 JEAN Telephone (HCSIND) -- TODD DELONG ([id number]) 1950 F Date Time Provider Department 11/23/23 BERNADTETE KING HCSIND During your visit today, we recorded the following information about you: Bernadette King LPN 11/23/2023 4:05 PM Signed Hello there! (Spoke with: Lily- daughter ) My name is Bernadette King LPN and I'm calling from [facility]. Your doctor wants to make sure you have the best care at home after leaving the hospital. Do you have a few minutes to chat about what to expect from home care? Yes Before we start, have you received help from a home care company in the last 60 days? They might have assisted with things like bathing, medication, checking your blood pressure, or exercises. No Our goal is to make your transition home smooth. A nurse (tim palma nurse or therapist ) will visit you within 2 days of leaving the hospital to get you started with home care. Is that okay with you? Yes They'll contact you the night before or the morning of the visit to tell you when they'll arrive. Would you like them to call or text you? Call [phone] Great! What address will we be seeing you at? [address], [place] [address] Do you have any upcoming appointments or things we need to schedule around? No When they call or text, the number might be unfamiliar or blocked. If they leave a message, please reply so we can plan your visit. Homecare helps with your recovery. During the first visit, the nurse (tim oneFrancois nurse or therapist) will talk with you, set goals, and plan your care. This visit might take one and a half to three hours. They'll figure out which services you need and how often they will see you. The purpose of homecare is to teach you or a family member or friend to manage your condition and provide any ordered treatments. Do you have someone to assist you at home? Yes They'll need to see your discharge instructions and medication bottles for any medications you are taking, both prescription and over the counter. Can you have those ready? Yes Any questions so far? No We understand it's not easy having new people in your home while you're recovering. Our caregivers will treat you with dignity and respect, and we ask the same in return. The safety of our patients and caregivers is important to us. We ask that you put away and secure any animals or weapons in the home prior to our caregivers arriving. We also ask that you, or anyone else in the home, are not under the influence of any substances, refrain from raising your voice, using profanity, or being threatening or aggressive during visits. If you don't have questions, I have just one more. Did you get a flu shot this year? Unsure Where did you get it? N/A Allergies As of Date: 11/23/2023 Noted Allergy Reaction BACTRIM (SULFAMETHOXAZOLE) 01/04/2015 12 - Shortness of Breath INFLUENZA VIRUS VACCINES 01/04/2015 16 - Unknown PRAVASTATIN 01/04/2015 5 - Intolerance PREDNISONE 01/04/2015 16 - Unknown Date Reviewed: 11/21/2023 Reviewed by: Josephine Gamboa LPN - Fully Assessed Reason for Visit: Home Care [4073] Cmt: Confirmation Call Prescriptions as of 11/23/2023 - pantoprazole DR (PROTONIX) 40 mg tablet Take 40 mg by mouth once daily. - potassium chloride ER (KLOR-CON) 20 mEq tablet Take 20 mEq by mouth once daily. - amLODIPine (NORVASC) 2.5 mg tablet Take 2.5 mg by mouth once daily. - ALBUTEROL SULFATE (VENTOLIN INHALATION) Inhale 1 [place] as instructed every 4 hours as needed. - BECLOMETHASONE DIPROPIONATE (QVAR INHALATION) Inhale 1 Inhalation as instructed twice daily. Facility-Administered Medications as of 11/23/2023 - magnesium oxide 400 mg tab(s) (MAG-OX) - lactated ringers iv infusion - fluconazole 200 mg tab(s) (DIFLUCAN) - sodium chloride 0.9 % (flush) 10 mL (BD POSIFLUSH) - sodium chloride 0.9 % (flush) 10 mL (BD POSIFLUSH) - NaCl 0.9% iv flush bag - ondansetron 4 mg tab(s) (ZOFRAN) - ondansetron (PF) 4 mg injection (ZOFRAN) - acetaminophen 650 mg tab(s) (TYLENOL) - pantoprazole DR 40 mg tab(s) (PROTONIX) Problem List As Of Date 11/23/2023 Noted Resolved Hypermature senile cataract - Both Eyes [H25.20]01/04/2015 Regular astigmatism - Both Eyes [H52.229] 01/04/2015 Essential hypertension [I10] 01/04/2015 High cholesterol [E78.00] 01/04/2015 Asthma [J45.909] 01/04/2015 S/P laser cataract surgery [Z98.49] 08/12/2015 Lens replaced by other means [Z96.1] 08/12/2015 09/27/2015 Astigmatism of left eye [H52.202] 08/30/2015 Pseudophakia, left eye [Z96.1] 08/30/2015 09/27/2015 LULY (acute kidney injury) (HCC) [N17.9] 10/10/2023 Bilateral hydronephrosis [N13.30] 10/10/2023 Leukocytosis [D72.829] 10/10/2023 Diarrhea [R19.7] 10/10/2023 Recurrent UTI [N39.0] 10/10/2023 Hydronephrosis [N13.30] 11/17/2023 Encounter Status:Closed by JESSICA KING (more content not included)... Normal [facility] Telephone (HCSIND) -- TODD DELONG ([id number]) 1950 F Date Time Provider Department 11/23/23 RED GOMES HCSIND During your visit today, we recorded the following information about you: Red Gomes 11/23/2023 2:52 PM Signed 11/23/2023 Unable to LM for Patient to return call to [facility] Red [place] Allergies As of Date: 11/23/2023 Noted Allergy Reaction BACTRIM (SULFAMETHOXAZOLE) 01/04/2015 12 - Shortness of Breath INFLUENZA VIRUS VACCINES 01/04/2015 16 - Unknown PRAVASTATIN 01/04/2015 5 - Intolerance PREDNISONE 01/04/2015 16 - Unknown Date Reviewed: 11/21/2023 Reviewed by: Josephine Gamboa LPN - Fully Assessed Reason for Visit: Home Care [4073] Cmt: Confirmation call Prescriptions as of 11/23/2023 - pantoprazole DR (PROTONIX) 40 mg tablet Take 40 mg by mouth once daily. - potassium chloride ER (KLOR-CON) 20 mEq tablet Take 20 mEq by mouth once daily. - amLODIPine (NORVASC) 2.5 mg tablet Take 2.5 mg by mouth once daily. - ALBUTEROL SULFATE (VENTOLIN INHALATION) Inhale 1 [place] as instructed every 4 hours as needed. - BECLOMETHASONE DIPROPIONATE (QVAR INHALATION) Inhale 1 Inhalation as instructed twice daily. Facility-Administered Medications as of 11/23/2023 - magnesium oxide 400 mg tab(s) (MAG-OX) - lactated ringers iv infusion - fluconazole 200 mg tab(s) (DIFLUCAN) - sodium chloride 0.9 % (flush) 10 mL (BD POSIFLUSH) - sodium chloride 0.9 % (flush) 10 mL (BD POSIFLUSH) - NaCl 0.9% iv flush bag - ondansetron 4 mg tab(s) (ZOFRAN) - ondansetron (PF) 4 mg injection (ZOFRAN) - acetaminophen 650 mg tab(s) (TYLENOL) - pantoprazole DR 40 mg tab(s) (PROTONIX) Problem List As Of Date 11/23/2023 Noted Resolved Hypermature senile cataract - Both Eyes [H25.20]01/04/2015 Regular astigmatism - Both Eyes [H52.229] 01/04/2015 Essential hypertension [I10] 01/04/2015 High cholesterol [E78.00] 01/04/2015 Asthma [J45.909] 01/04/2015 S/P laser cataract surgery [Z98.49] 08/12/2015 Lens replaced by other means [Z96.1] 08/12/2015 09/27/2015 Astigmatism of left eye [H52.202] 08/30/2015 Pseudophakia, left eye [Z96.1] 08/30/2015 09/27/2015 LULY (acute kidney injury) (HCC) [N17.9] 10/10/2023 Bilateral hydronephrosis [N13.30] 10/10/2023 Leukocytosis [D72.829] 10/10/2023 Diarrhea [R19.7] 10/10/2023 Recurrent UTI [N39.0] 10/10/2023 Hydronephrosis [N13.30] 11/17/2023 Encounter Status:Closed by RED GOMES on 11/23/23 Normal [facility] Absolute lymphocyte countOrd ered By: Brian Mckee on 11-16-2023 Lymphocytes Auto (Unsp spec) [#/Vol] 3.40 10*3/uL 0.83-4.51 [facility] Basophil percentageOrdered B y: Brian Mckee on 11-16-2023 Basophil percentage 50-100 SEEN /hpf 0-5 [facility] Comment on above: Previous reported re sult: 5-10 SEEN /hpfEdited by: HARMONY on 11/16/23:1900 AMENDED REPORT 11/16/231900 WBC previously reported as: 5-10 SEEN /hpf Bilirubin [Mass/Vol] 0.70 mg/dL 0.20-1.00 [facility] Comment on above: For patients on eltr ombopag therapy, use of Dimension [place] TBIL is not recommended. Chloride [Moles/Vol] 112 mmol/L 98-107 [facility] Glucose [Mass/Vol] 92 mg/dL 74-106 [facility] Lactate [Moles/Vol] 0.8 mmol/L 0.4-2.0 [facility] Potassium [Moles/Vol] 4.7 mmol/L 3.5-5.1 [facility] Comment on above: Moderate Hemolysis, Result may be falsely increased. Protein [Mass/Vol] 6.9 g/dL 6.4-8.2 [facility] Sodium [Moles/Vol] 136 mmol/L 136-145 [facility] Basophils/100 WBC (Bld) 0.4 % 0-1 [facility] Eosinophils/100 WBC (Bld) 0.2 % 0-5 [facility] Neutrophils (Bld) [#/Vol] 14.4 10*3/uL 2.0-7.7 [facility] Neutrophils/100 WBC (Bld) 75.4 % 47-70 [facility] WBC (Bld) [#/Vol] 19.1 10*3/uL 4.4-11.0 [facility] Bilirubin Test strip Ql (U)O rdered By: Brian Mckee on 11-16-2023 Bilirubin Ql (U) Negative Negative [facility] Blood erythrocytes count (nu mber/volume)Ordered By: Brian Mckee on 11-16-2023 RBC (Bld) [#/Vol] 3.51 10*6/uL 4.2-5.4 [facility] Blood hemoglobin measurement (mass/volume)Ordered By: Brian Mckee on 11-16-2023 Hemoglobin (Bld) [Mass/Vol] 11.0 g/dL 12.0-15.0 [facility] Blood lymphocytes/100 leukoc ytesOrdered By: Brian Mckee on 11-16-2023 Lymphocytes/100 WBC (Bld) 17.8 % 19-41 [facility] Blood monocytes/100 leukocyt esOrdered By: Brian Mckee on 11-16-2023 Monocytes/100 WBC (Bld) 5.1 % 0-10 [facility] Blood platelet adequacy dete ction by light microscopyOrdered By: Brian Mckee on 11-16-2023 Platelets LM Ql (Bld) ADEQUATE ADEQ [facility] Blood platelet mean volumeOr dered By: Brian Mckee on 11-16-2023 Platelet mean volume (Bld) [Entitic vol] 11.2 fL 6.2-12.0 [facility] Culture, urineOrdered By: Viktor Mckee on 11-16-2023 Bacteria identified Cx Nom (U) Deandra albicans [facility] Determination of erythrocyte mean corpuscular volume (MCV)Ordered By: Brian Mckee on 11-16-2023 MCV (RBC) [Entitic vol] 98.3 fL 81-99 [facility] Hematocrit Auto (Bld) [Volum e fraction]Ordered By: Brian Mckee on 11-16-2023 Hematocrit (Bld) [Volume fraction] 34.5 % 37-47 [facility] Ketones Test strip Ql (U)Ord ered By: Brian Mckee on 11-16-2023 Ketones Ql (U) Negative Negative [facility] Laboratory - Chemistry and C hemistry - challengeOrdered By: Brian Mckee on 11-16-2023 ALP [Catalytic activity/Vol] 96 U/L 45-117 [facility] ALT [Catalytic activity/Vol] 8 U/L 13-56 [facility] CO2 [Moles/Vol] 15.0 mmol/L 21.0-32.0 [facility] Globulin (S) [Mass/Vol] 5.1 g/dL 2.2-4.2 [facility] Urea nitrogen/Creatinine [Mass ratio] 5.8 mg/mg 10-20 [facility] Laboratory - CoagulationOrde red By: Brian Mckee on 11-16-2023 aPTT Coag (Bld) [Time] 30.1 s 24.1-36.2 [facility] PT Coag (PPP) [Time] 15.1 s 11.7-14.9 [facility] - Hematology and Cell countsOrdered By: Brian Mckee on 11-16-2023 Erythrocyte distribution width (RBC) [Entitic vol] 55.7 fL 35.1-43.9 [facility] Erythrocyte distribution width (RBC) [Ratio] 15.6 % 11.6-14.6 [facility] Immature granulocytes/100 WBC (Bld) 1.100 % 0.0-0.9 [facility] Comment on above: IG% - Immature Granu locytes (promyelocytes, myelocytes and metamyelocytes) > 1% indicates that a LEFT SHIFT is Present. MCH (RBC) [Entitic mass] 31.3 pg 27.0-32.0 [facility] Nucleated RBC/100 WBC (Bld) [Ratio] 0 % 0-5 [facility] - Microbiology an d Antimicrobial susceptibilityOrdered By: Brian Mckee on 11-16-2023 SARS-CoV-2 (COVID-19) RNA BOBBI+probe Ql (Unsp spec) [facility] Bacteria identified Cx Nom (Bld) No growth in 5 days. [facility] MCHC Auto (RBC) [Mass/Vol]Or dered By: Brian Mckee on 11-16-2023 MCHC (RBC) [Mass/Vol] 31.9 g/dL 32-36 [facility] Mucus LM Ql (Urine sed)Order ed By: Brian Mckee on 11-16-2023 Mucus Ql (Urine sed) 0 SEEN /hpf [facility] Nitrite Test strip Ql (U)Ord ered By: Brian Mckee on 11-16-2023 Nitrite Ql (U) Negative Negative [facility] No Panel InformationOrdered By: Brian Mckee on 11-16-2023 Ionized Calcium 3.57 mg/dL 4.36-5.20 [facility] Estimated Creatinine Clearance Calc 13.14 ml/min [facility] Estimated GFR (MDRD) Amer 14 mL/min >60 [facility] Comment on above: GFR Calc Estimated GFR (MDRD) Non-Af Amer 12 mL/min >60 [facility] Comment on above: Non- GFR Calc Troponin I High Sensitivity 16 pg/mL 3.0-54.0 [facility] Comment on above: Please Note: New Rosemary t Units and Gender Specific Reference Ranges. For more information see Policy Stat Procedure [place] High Sensitivity Troponin (TNIH) and attachments. Platelets bldOrdered By: Eladio Mckee on 11-16-2023 Platelets (Bld) [#/Vol] [facility] Comment on above: Test not performedPl ease note: For this sample, a platelet estimate is provided rather than a platelet count due to platelet clumping. Other parameters associated with this sample are not affected by platelet clumping. If a more accurate platelet count is required, a redraw of the patient will be necessary.Previous reported result: [id number] by: ULISES on 11/16/23:180 Protein Test strip Ql (U)Ord ered By: Brian Mckee on 11-16-2023 Protein Ql (U) 30 mg/dl Negative [facility] Serum or plasma albumin yunior urement (mass/volume)Ordered By: Brian Mckee on 11-16-2023 Albumin [Mass/Vol] 1.8 g/dL 3.2-5.0 [facility] Serum or plasma albumin/glob ulin mass ratioOrdered By: Brian Mckee on 11-16-2023 Albumin/Globulin [Mass ratio] 0.4 {ratio} 0.9-2.4 [facility] Serum or plasma calcium yunior urement (mass/volume)Ordered By: Brian Mckee on 11-16-2023 Calcium [Mass/Vol] 5.9 mg/dL 8.5-10.1 [facility] Comment on above: Critical Result(s) C alled at: 19:17:50 11/16/2023 by: Africa Nino to MMartin2. Results read back by same. Serum or plasma creatinine m easurement (mass/volume)Ordered By: Brian Mckee on 11-16-2023 Creatinine [Mass/Vol] 3.96 mg/dL 0.55-1.02 [facility] Comment on above: The validity of the calculated GFR & GFRAA in patients over 70 years has not been determined. Clinical correlation is essential. Serum or plasma urea nitroge n measurement (mass/volume)Ordered By: Brian Mckee on 11-16-2023 Urea nitrogen [Mass/Vol] 23 mg/dL 7-18 [facility] Squamous epithelial cells de tection in urine sediment by light microscopyOrdered By: Brian Mckee on 11-16-2023 Epithelial cells.squamous LM Ql (Urine sed) 0 SEEN /hpf 5-10 [facility] Thin prep Papanicolaou smear with manual screeningOrdered By: Brian Mckee on 11-16-2023 Thin prep Papanicolaou smear with manual screening 16 U/L 15-37 [facility] Comment on above: Moderate Hemolysis, Result may be falsely increased. Thin prep Papanicolaou smear with manual screening 9 5-15 [facility] Urine blood detectionOrdered By: Brian Mckee on 11-16-2023 RBC Ql (U) 50 /ul Negative [facility] RBC Ql (U) 0 SEEN /hpf 0-5 [facility] Urine clarityOrdered By: Eladio Mckee on 11-16-2023 Clarity (U) Sl. Cloudy Clear [facility] Urine color determinationOrd ered By: Brian Mckee on 11-16-2023 Color (U) Yellow Yellow [facility] Urine glucose detectionOrder ed By: Brian Mckee on 11-16-2023 Glucose Ql (U) Normal mg/dl Normal [facility] Urine leukocyte esterase det ection by dipstickOrdered By: Brian Mckee on 11-16-2023 Leukocyte esterase Test strip Ql (U) 500 /ul Negative [facility] Urine pHOrdered By: Brian delarosa on 11-16-2023 pH (U) 6.5 [pH] 5.0 - 8.0 [facility] Urine sediment bacteria coun t by microscopy (number/high power field)Ordered By: Brian Mckee on 11-16-2023 Bacteria LM.HPF (Urine sed) [#/Area] 0 /[HPF] None Seen [facility] Urine specific gravity measu rementOrdered By: Brian Mckee on 11-16-2023 Specific gravity (U) [Rel density] 1.005 1.002-1.03 0 [facility] Urobilinogen Auto test strip Ql (U)Ordered By: Brian Mckee on 11-16-2023 Urobilinogen Ql (U) Normal mg/dl Normal [facility] Whole blood international no rmalized ratio (INR)Ordered By: Brian cMkee on 11-16-2023 INR Coag (Bld) [Relative time] 1.2 {INR} [facility] Absolute lymphocyte countOrd ered By: Rafa Lofton on 11-13-2023 Lymphocytes Auto (Unsp spec) [#/Vol] 3.47 10*3/uL 0.83-4.51 [facility] Basophil percentageOrdered B y: Rafa Lofton on 11-13-2023 Basophil percentage 83 mg/dL 74-106 [facility] Basophil percentage 6.2 g/dL 6.4-8.2 [facility] Basophil percentage 0.50 mg/dL 0.20-1.00 [facility] Basophil percentage 139 mmol/L 136-145 [facility] Basophil percentage 3.7 mmol/L 3.5-5.1 [facility] Basophil percentage 112 mmol/L 98-107 [facility] Basophils (Bld) [#/Vol] 18.3 10*3/uL 4.4-11.0 [facility] Basophils (Bld) [#/Vol] 13.5 10*3/uL 2.0-7.7 [facility] Basophils/100 WBC (Bld) 74.1 % 47-70 [facility] Basophils/100 WBC (Bld) 1.0 % 0-5 [facility] Basophils/100 WBC (Bld) 0.3 % 0-1 [facility] Bilirubin [Mass/Vol] 0.50 mg/dL 0.20-1.00 [facility] Comment on above: For patients on eltr ombopag therapy, use of Dimension [place] TBIL is not recommended. Chloride [Moles/Vol] 112 mmol/L 98-107 [facility] Eosinophils/100 WBC (Bld) 1.0 % 0-5 [facility] Glucose [Mass/Vol] 83 mg/dL 74-106 [facility] Neutrophils (Bld) [#/Vol] 13.5 10*3/uL 2.0-7.7 [facility] Neutrophils/100 WBC (Bld) 74.1 % 47-70 [facility] Potassium [Moles/Vol] 3.7 mmol/L 3.5-5.1 [facility] Protein [Mass/Vol] 6.2 g/dL 6.4-8.2 [facility] Sodium [Moles/Vol] 139 mmol/L 136-145 [facility] WBC (Bld) [#/Vol] 18.3 10*3/uL 4.4-11.0 [facility] Blood erythrocytes count (nu mber/volume)Ordered By: Rafa Lofton on 11-13-2023 RBC (Bld) [#/Vol] 3.11 10*6/uL 4.2-5.4 [facility] Blood hemoglobin measurement (mass/volume)Ordered By: Rafa Lofton on 11-13-2023 Hemoglobin (Bld) [Mass/Vol] 9.5 g/dL 12.0-15.0 [facility] Blood lymphocytes/100 leukoc ytesOrdered By: Rafa Lofton on 11-13-2023 Lymphocytes/100 WBC (Bld) 19.0 % 19-41 [facility] Blood monocytes/100 leukocyt esOrdered By: Rafa Lofton on 11-13-2023 Monocytes/100 WBC (Bld) 4.5 % 0-10 [facility] Blood platelet mean volumeOr dered By: Rafa Lofton on 11-13-2023 Platelet mean volume (Bld) [Entitic vol] 10.1 fL 6.2-12.0 [facility] Determination of erythrocyte mean corpuscular volume (MCV)Ordered By: Rafa Lofton on 11-13-2023 MCV (RBC) [Entitic vol] 98.7 fL 81-99 [facility] Hematocrit Auto (Bld) [Volum e fraction]Ordered By: Rafa Lofton on 11-13-2023 Hematocrit (Bld) [Volume fraction] 30.7 % 37-47 [facility] - Chemistry and C hemistry - challengeOrdered By: Rafa Lofton on 11-13-2023 ALP [Catalytic activity/Vol] 90 U/L 45-117 [facility] ALT [Catalytic activity/Vol] U/L 13-56 [facility] CO2 [Moles/Vol] 16.0 mmol/L 21.0-32.0 [facility] Globulin (S) [Mass/Vol] 4.6 g/dL 2.2-4.2 [facility] Urea nitrogen/Creatinine [Mass ratio] 6.2 mg/mg 10-20 [facility] - Hematology and Cell countsOrdered By: Rafa Lofton on 11-13-2023 Erythrocyte distribution width (RBC) [Entitic vol] 55.6 fL 35.1-43.9 [facility] Erythrocyte distribution width (RBC) [Ratio] 15.5 % 11.6-14.6 [facility] Immature granulocytes/100 WBC (Bld) 1.100 % 0.0-0.9 [facility] Comment on above: IG% - Immature Granu locytes (promyelocytes, myelocytes and metamyelocytes) > 1% indicates that a LEFT SHIFT is Present. MCH (RBC) [Entitic mass] 30.5 pg 27.0-32.0 [facility] Nucleated RBC/100 WBC (Bld) [Ratio] 0 % 0-5 [facility] MCHC Auto (RBC) [Mass/Vol]Or dered By: Rafa Lofton on 11-13-2023 MCHC (RBC) [Mass/Vol] 30.9 g/dL 32-36 [facility] No Panel InformationOrdered By: Rafa Lofton on 11-13-2023 Estimated Creatinine Clearance Calc 12.88 ml/min [facility] Estimated GFR (MDRD) Amer 14 mL/min >60 [facility] Comment on above: GFR Calc Estimated GFR (MDRD) Non-Af Amer 12 mL/min >60 [facility] Comment on above: Non- GFR Calc 30.5 pg 27.0-32.0 [facility] 15.5 % 11.6-14.6 [facility] 55.6 fl 35.1-43.9 [facility] 1.100 % 0.0-0.9 [facility] 0 % 0-5 [facility] 12 mL/min >60 [facility] 14 mL/min >60 [facility] 12.88 ml/min [facility] 6.2 RATIO 10-20 [facility] 4.6 g/dL 2.2-4.2 [facility] 90 U/L 45-117 [facility] < 6 U/L 13-56 [facility] 16.0 mmol/L 21.0-32.0 [facility] Platelets bldOrdered By: Radha Lofton on 11-13-2023 Platelets (Bld) [#/Vol] 310 10*3/uL 150-450 [facility] Serum or plasma albumin yunior urement (mass/volume)Ordered By: Rafa Lofton on 11-13-2023 Albumin [Mass/Vol] 1.6 g/dL 3.2-5.0 [facility] Serum or plasma albumin/glob ulin mass ratioOrdered By: Rafa Lofton on 11-13-2023 Albumin/Globulin [Mass ratio] 0.3 {ratio} 0.9-2.4 [facility] Serum or plasma calcium yunior urement (mass/volume)Ordered By: Rafa Lofton on 11-13-2023 Calcium [Mass/Vol] 6.7 mg/dL 8.5-10.1 [facility] Serum or plasma creatinine m easurement (mass/volume)Ordered By: Rafa Lofton on 11-13-2023 Creatinine [Mass/Vol] 4.04 mg/dL 0.55-1.02 [facility] Comment on above: The validity of the calculated GFR & GFRAA in patients over 70 years has not been determined. Clinical correlation is essential. Serum or plasma urea nitroge n measurement (mass/volume)Ordered By: Rafa Lofton on 11-13-2023 Urea nitrogen [Mass/Vol] 25 mg/dL 7-18 [facility] Thin prep Papanicolaou smear with manual screeningOrdered By: Rafa Lofton on 11-13-2023 Thin prep Papanicolaou smear with manual screening 11 U/L 15-37 [facility] Thin prep Papanicolaou smear with manual screening 11 5-15 [facility] Blood manual differential co mment interpretation (narrative result)Ordered By: Rafa Lofton on 11-12-2023 Manual differential comment Pollo (Bld) [Interp] SCANNED [facility] Comment on above: NEUTROPHILLIA PRESEN T Basophil percentageOrdered B y: Andres Fraser on 11-11-2023 Basophil percentage 1.2 mmol/L 0.4-2.0 [facility] Lactate [Moles/Vol] 1.2 mmol/L 0.4-2.0 [facility] Absolute lymphocyte countOrd ered By: South Gutiérrez on 11-10-2023 Lymphocytes Auto (Unsp spec) [#/Vol] 7.90 10*3/uL 0.83-4.51 [facility] Bacteria identified Cx Nom ( U)Ordered By: Andres Fraser on 11-10-2023 Culture, urine Positive [facility] Basophil percentageOrdered B y: South Gutiérrez on 11-10-2023 Basophil percentage 111 mg/dL 74-106 [facility] Basophil percentage 8.3 g/dL 6.4-8.2 [facility] Basophil percentage 0.80 mg/dL 0.20-1.00 [facility] Basophil percentage 139 mmol/L 136-145 [facility] Basophil percentage 3.6 mmol/L 3.5-5.1 [facility] Basophil percentage 110 mmol/L 98-107 [facility] Basophil percentage 1.9 mmol/L 0.4-2.0 [facility] Basophils (Bld) [#/Vol] 21.9 10*3/uL 4.4-11.0 [facility] Basophils (Bld) [#/Vol] 12.4 10*3/uL 2.0-7.7 [facility] Basophils/100 WBC (Bld) 56.4 % 47-70 [facility] Basophils/100 WBC (Bld) 0.6 % 0-5 [facility] Basophils/100 WBC (Bld) 0.4 % 0-1 [facility] Basophil percentage >100 SEEN /hpf 0-5 [facility] Comment on above: Microscopic field is filled. Other elements may be obscured. Bilirubin Test strip Ql (U)O rdered By: South Gutiérrez on 11-10-2023 Bilirubin Ql (U) Negative Negative [facility] Blood erythrocytes count (nu mber/volume)Ordered By: South Gutiérrez on 11-10-2023 RBC (Bld) [#/Vol] 3.91 10*6/uL 4.2-5.4 [facility] Blood hemoglobin measurement (mass/volume)Ordered By: South Gutiérrez on 11-10-2023 Hemoglobin (Bld) [Mass/Vol] 12.3 g/dL 12.0-15.0 [facility] Blood lymphocytes/100 leukoc ytesOrdered By: South Gutiérrez on 11-10-2023 Lymphocytes/100 WBC (Bld) 36.1 % 19-41 [facility] Blood manual differential co mment interpretation (narrative result)Ordered By: South Gutiérrez on 11-10-2023 Manual differential comment Pollo (Bld) [Interp] SCANNED [facility] Blood monocytes/100 leukocyt esOrdered By: South Gutiérrez on 11-10-2023 Monocytes/100 WBC (Bld) 5.9 % 0-10 [facility] Blood platelet mean volumeOr dered By: South Gutiérrez on 11-10-2023 Platelet mean volume (Bld) [Entitic vol] 10.2 fL 6.2-12.0 [facility] Culture, urineOrdered By: Damir Fraser on 11-10-2023 Bacteria identified Cx Nom (U) Positive [facility] Determination of erythrocyte mean corpuscular volume (MCV)Ordered By: South Gutiérrez on 11-10-2023 MCV (RBC) [Entitic vol] 98.0 fL 81-99 [facility] Hematocrit Auto (Bld) [Volum e fraction]Ordered By: South Gutiérrez on 11-10-2023 Hematocrit (Bld) [Volume fraction] 38.3 % 37-47 [facility] Ketones Test strip Ql (U)Ord ered By: South Gutiérerz on 11-10-2023 Ketones Ql (U) Negative Negative [facility] - Microbiology an d Antimicrobial susceptibilityOrdered By: South Gutiérrez on 11-10-2023 Bacteria identified Cx Nom (Bld) No growth in 5 days. [facility] MCHC Auto (RBC) [Mass/Vol]Or dered By: South Gutiérrez on 11-10-2023 MCHC (RBC) [Mass/Vol] 32.1 g/dL 32-36 [facility] Mucus LM Ql (Urine sed)Order ed By: South Gutiérrez on 11-10-2023 Mucus Ql (Urine sed) 0 SEEN /hpf [facility] Nitrite Test strip Ql (U)Ord ered By: South Gutiérrez on 11-10-2023 Nitrite Ql (U) Negative Negative [facility] No Panel InformationOrdered By: South Gutiérrez on 11-10-2023 31.5 pg 27.0-32.0 [facility] 15.4 % 11.6-14.6 [facility] 54.4 fl 35.1-43.9 [facility] 0.600 % 0.0-0.9 [facility] 0.1 % 0-5 [facility] 21 mL/min >60 [facility] 26 mL/min >60 [facility] 21.69 ml/min [facility] 6.2 RATIO 10-20 [facility] 5.8 g/dL 2.2-4.2 [facility] 112 U/L 45-117 [facility] 11 U/L 13-56 [facility] 19.0 mmol/L 21.0-32.0 [facility] Platelets bldOrdered By: Ismael Gutiérrez on 11-10-2023 Platelets (Bld) [#/Vol] 408 10*3/uL 150-450 [facility] Protein Test strip Ql (U)Ord ered By: South Gutiérrez on 11-10-2023 Protein Ql (U) 100 mg/dl Negative [facility] Serum or plasma albumin yunior urement (mass/volume)Ordered By: South Gutiérrez on 11-10-2023 Albumin [Mass/Vol] 2.5 g/dL 3.2-5.0 [facility] Serum or plasma albumin/glob ulin mass ratioOrdered By: South Gutiérrez on 11-10-2023 Albumin/Globulin [Mass ratio] 0.4 {ratio} 0.9-2.4 [facility] Serum or plasma calcium yunior urement (mass/volume)Ordered By: South Gutiérrez on 11-10-2023 Calcium [Mass/Vol] 7.6 mg/dL 8.5-10.1 [facility] Serum or plasma creatinine m easurement (mass/volume)Ordered By: South Gutiérrez on 11-10-2023 Creatinine [Mass/Vol] 2.40 mg/dL 0.55-1.02 [facility] Serum or plasma urea nitroge n measurement (mass/volume)Ordered By: South Gutiérrez on 11-10-2023 Urea nitrogen [Mass/Vol] 15 mg/dL 7-18 [facility] Squamous epithelial cells de tection in urine sediment by light microscopyOrdered By: South Gutiérrez on 11-10-2023 Epithelial cells.squamous LM Ql (Urine sed) 0 SEEN /hpf 5-10 [facility] Thin prep Papanicolaou smear with manual screeningOrdered By: South Gutiérrez on 11-10-2023 Thin prep Papanicolaou smear with manual screening 13 U/L 15-37 [facility] Thin prep Papanicolaou smear with manual screening 10 5-15 [facility] Urine blood detectionOrdered By: South Gutiérrez on 11-10-2023 RBC Ql (U) 150 /ul Negative [facility] RBC Ql (U) 0 SEEN /hpf 0-5 [facility] Urine clarityOrdered By: Ismael Gutiérrez on 11-10-2023 Clarity (U) Cloudy Clear [facility] Urine color determinationOrd ered By: South Gutiérrez on 11-10-2023 Color (U) Yellow Yellow [facility] Urine glucose detectionOrder ed By: South Gutiérrez on 11-10-2023 Glucose Ql (U) Normal mg/dl Normal [facility] Urine leukocyte esterase det ection by dipstickOrdered By: South Gutiérrez on 11-10-2023 Leukocyte esterase Test strip Ql (U) 500 /ul Negative [facility] Urine pHOrdered By: South kuhn on 11-10-2023 pH (U) 6.5 [pH] 5.0 - 8.0 [facility] Urine sediment bacteria coun t by microscopy (number/high power field)Ordered By: South Gutiérrez on 11-10-2023 Bacteria LM.HPF (Urine sed) [#/Area] 0 /[HPF] None Seen [facility] Urine specific gravity measu rementOrdered By: South Gutiérrez on 11-10-2023 Specific gravity (U) [Rel density] 1.010 1.002-1.03 0 [facility] Urobilinogen Auto test strip Ql (U)Ordered By: South Gutiérrez on 11-10-2023 Urobilinogen Ql (U) Normal mg/dl Normal [facility] Absolute lymphocyte countOrd ered By: Rafa Glynn on 11-06-2023 Lymphocytes Auto (Unsp spec) [#/Vol] 4.08 10*3/uL 0.83-4.51 [facility] Bacteria identified Cx Nom ( U)Ordered By: Rafa Glynn on 11-06-2023 Culture, urine Mixed Gram Pos & Gra m Neg Org [facility] Basophil percentageOrdered B y: Rafa Glynn on 11-06-2023 Basophil percentage 101 mg/dL 74-106 [facility] Basophil percentage 139 mmol/L 136-145 [facility] Basophil percentage 3.3 mmol/L 3.5-5.1 [facility] Basophil percentage 106 mmol/L 98-107 [facility] Basophils (Bld) [#/Vol] 16.0 10*3/uL 4.4-11.0 [facility] Basophils (Bld) [#/Vol] 10.7 10*3/uL 2.0-7.7 [facility] Basophils/100 WBC (Bld) 66.6 % 47-70 [facility] Basophils/100 WBC (Bld) 0.6 % 0-5 [facility] Basophils/100 WBC (Bld) 0.4 % 0-1 [facility] Chloride [Moles/Vol] 106 mmol/L 98-107 [facility] Eosinophils/100 WBC (Bld) 0.6 % 0-5 [facility] Glucose [Mass/Vol] 101 mg/dL 74-106 [facility] Comment on above: Fasting Glucose resu lt from 100 to 125 mg/dL suggests IMPAIRED HOMEOSTASIS per A.D.A. criteria. Neutrophils (Bld) [#/Vol] 10.7 10*3/uL 2.0-7.7 [facility] Neutrophils/100 WBC (Bld) 66.6 % 47-70 [facility] Potassium [Moles/Vol] 3.3 mmol/L 3.5-5.1 [facility] Sodium [Moles/Vol] 139 mmol/L 136-145 [facility] WBC (Bld) [#/Vol] 16.0 10*3/uL 4.4-11.0 [facility] Basophil percentage 25-50 SEEN /hpf 0-5 [facility] Bilirubin Test strip Ql (U)O rdered By: Rafa Glynn on 11-06-2023 Bilirubin Ql (U) Negative Negative [facility] Blood erythrocytes count (nu mber/volume)Ordered By: Rafa Glynn on 11-06-2023 RBC (Bld) [#/Vol] 3.78 10*6/uL 4.2-5.4 [facility] Blood hemoglobin measurement (mass/volume)Ordered By: Rafa Glynn on 11-06-2023 Hemoglobin (Bld) [Mass/Vol] 11.6 g/dL 12.0-15.0 [facility] Blood lymphocytes/100 leukoc ytesOrdered By: Rafa Glynn on 11-06-2023 Lymphocytes/100 WBC (Bld) 25.5 % 19-41 [facility] Blood monocytes/100 leukocyt esOrdered By: Rafa Glynn on 11-06-2023 Monocytes/100 WBC (Bld) 6.2 % 0-10 [facility] Blood platelet mean volumeOr dered By: Rafa Glynn on 11-06-2023 Platelet mean volume (Bld) [Entitic vol] 9.9 fL 6.2-12.0 [facility] Culture, urineOrdered By: Davian Glynn on 11-06-2023 Bacteria identified Cx Nom (U) Mixed Gram Pos & Gram Neg Org [facility] Determination of erythrocyte mean corpuscular volume (MCV)Ordered By: Rafa Glynn on 11-06-2023 MCV (RBC) [Entitic vol] 98.7 fL 81-99 [facility] Hematocrit Auto (Bld) [Volum e fraction]Ordered By: Rafa Glynn on 11-06-2023 Hematocrit (Bld) [Volume fraction] 37.3 % 37-47 [facility] Ketones Test strip Ql (U)Ord ered By: Rafa Glynn on 11-06-2023 Ketones Ql (U) Negative Negative [facility] - Chemistry and C hemistry - challengeOrdered By: Rafa Glynn on 11-06-2023 CO2 [Moles/Vol] 24.0 mmol/L 21.0-32.0 [facility] Urea nitrogen/Creatinine [Mass ratio] 7.4 mg/mg 10-20 [facility] - Hematology and Cell countsOrdered By: Rafa Glynn on 11-06-2023 Erythrocyte distribution width (RBC) [Entitic vol] 54.0 fL 35.1-43.9 [facility] Erythrocyte distribution width (RBC) [Ratio] 15.1 % 11.6-14.6 [facility] Immature granulocytes/100 WBC (Bld) 0.700 % 0.0-0.9 [facility] Comment on above: IG% - Immature Granu locytes (promyelocytes, myelocytes and metamyelocytes) > 1% indicates that a LEFT SHIFT is Present. MCH (RBC) [Entitic mass] 30.7 pg 27.0-32.0 [facility] Nucleated RBC/100 WBC (Bld) [Ratio] 0 % 0-5 [facility] MCHC Auto (RBC) [Mass/Vol]Or dered By: Rafa Glynn on 11-06-2023 MCHC (RBC) [Mass/Vol] 31.1 g/dL 32-36 [facility] Mucus LM Ql (Urine sed)Order ed By: Rafa Glynn on 11-06-2023 Mucus Ql (Urine sed) 0 SEEN /hpf [facility] Nitrite Test strip Ql (U)Ord ered By: Rafa Glynn on 11-06-2023 Nitrite Ql (U) Positive Negative [facility] No Panel InformationOrdered By: Rafa Glynn on 11-06-2023 Estimated GFR (MDRD) Amer 24 mL/min >60 [facility] Comment on above: GFR Calc Estimated GFR (MDRD) Non-Af Amer 19 mL/min >60 [facility] Comment on above: Non- GFR Calc 30.7 pg 27.0-32.0 [facility] 15.1 % 11.6-14.6 [facility] 54.0 fl 35.1-43.9 [facility] 0.700 % 0.0-0.9 [facility] 0 % 0-5 [facility] 19 mL/min >60 [facility] 24 mL/min >60 [facility] 7.4 RATIO 10-20 [facility] 24.0 mmol/L 21.0-32.0 [facility] Platelets bldOrdered By: Radha Glynn on 11-06-2023 Platelets (Bld) [#/Vol] 330 10*3/uL 150-450 [facility] Protein Test strip Ql (U)Ord ered By: Rafa Glynn on 11-06-2023 Protein Ql (U) 100 mg/dl Negative [facility] Serum or plasma calcium yunior urement (mass/volume)Ordered By: Rafa Glynn on 11-06-2023 Calcium [Mass/Vol] 7.3 mg/dL 8.5-10.1 [facility] Serum or plasma creatinine m easurement (mass/volume)Ordered By: Rafa Glynn on 11-06-2023 Creatinine [Mass/Vol] 2.58 mg/dL 0.55-1.02 [facility] Comment on above: The validity of the calculated GFR & GFRAA in patients over 70 years has not been determined. Clinical correlation is essential. Serum or plasma urea nitroge n measurement (mass/volume)Ordered By: Rafa Glynn on 11-06-2023 Urea nitrogen [Mass/Vol] 19 mg/dL 7-18 [facility] Squamous epithelial cells de tection in urine sediment by light microscopyOrdered By: Rafa Glynn on 11-06-2023 Epithelial cells.squamous LM Ql (Urine sed) 0-5 SEEN /hpf 5-10 [facility] Thin prep Papanicolaou smear with manual screeningOrdered By: Rafa Glynn on 11-06-2023 Thin prep Papanicolaou smear with manual screening 9 5-15 [facility] Urine blood detectionOrdered By: Rafa Glynn on 11-06-2023 RBC Ql (U) 250 /ul Negative [facility] RBC Ql (U) 25-50 SEEN /hpf 0-5 [facility] Urine clarityOrdered By: Radha Glynn on 11-06-2023 Clarity (U) Sl. Cloudy Clear [facility] Urine color determinationOrd ered By: Rafa Glynn on 11-06-2023 Color (U) Yellow Yellow [facility] Urine glucose detectionOrder ed By: Rafa Glynn on 11-06-2023 Glucose Ql (U) Normal mg/dl Normal [facility] Urine leukocyte esterase det ection by dipstickOrdered By: Rafa Glynn on 11-06-2023 Leukocyte esterase Test strip Ql (U) 500 /ul Negative [facility] Urine pHOrdered By: Rafa garcia on 11-06-2023 pH (U) 6.5 [pH] 5.0 - 8.0 [facility] Urine sediment bacteria coun t by microscopy (number/high power field)Ordered By: Rafa Glynn on 11-06-2023 Bacteria LM.HPF (Urine sed) [#/Area] 2 /[HPF] None Seen [facility] Urine specific gravity measu rementOrdered By: Rafa Glynn on 11-06-2023 Specific gravity (U) [Rel density] 1.010 1.002-1.03 0 [facility] Urobilinogen Auto test strip Ql (U)Ordered By: Rafa Glynn on 11-06-2023 Urobilinogen Ql (U) Normal mg/dl Normal [facility] Basophil percentageOrdered B y: Gerardo García on 10-30-2023 Basophil percentage 155 mg/dL <200 [facility] Basophil percentage 124 mg/dL <199 [facility] Cholesterol [Mass/Vol] 155 mg/dL <200 [facility] Comment on above: <200 mg/dL Desirable 200-240 mg/dL Borderline >240 mg/dL High Risk Triglyceride [Mass/Vol] 124 mg/dL <199 [facility] Comment on above: The drugs N-Acetylcy steine and Metamizole may falsely depress this assay.Serum Triglycerides Reference Interval Normal <150 mg/dL Borderline high 150 - 199 mg/dL High 200 - 499 mg/dL Very High > or = 500 mg/dL No Panel InformationOrdered By: Gerardo García on 10-30-2023 Thyroid Stimulating Hormone (TSH) 2.78 uIU/mL 0.358-3.74 [facility] 2.78 uIU/mL 0.358-3.74 [facility] Serum or plasma cholesterol in HDL measurement (mass/volume)Ordered By: Gerardo García on 10-30-2023 Cholesterol in HDL [Mass/Vol] 36 mg/dL >40 [facility] Comment on above: The drugs N-Acetylcy steine and Metamizole may falsely depress this assay. Reference Range HDL <40 mg/dL Low HDL Cholesterol HDL >or= 60 mg/dL High HDL Cholesterol Serum or plasma cholesterol in VLDL measurement (mass/volume)Ordered By: Gerardo García on 10-30-2023 Cholesterol in VLDL [Mass/Vol] 25 mg/dL 5-40 [facility] Serum or plasma low density lipoprotein (LDL) cholesterol measurement (mass/volume)Ordered By: Gerardo García on 10-30-2023 Cholesterol in LDL [Mass/Vol] 94 mg/dL 0-130 [facility] Absolute lymphocyte countOrd ered By: Luz Maria Matthews on 10-23-2023 Lymphocytes Auto (Unsp spec) [#/Vol] 6.51 10*3/uL 0.83-4.51 [facility] Basophil percentageOrdered B y: Luz Maria Matthews on 10-23-2023 Basophil percentage 104 mg/dL 74-106 [facility] Basophil percentage 3.5 mg/dL 2.5-4.9 [facility] Basophil percentage 138 mmol/L 136-145 [facility] Basophil percentage 3.0 mmol/L 3.5-5.1 [facility] Basophil percentage 106 mmol/L 98-107 [facility] Basophils (Bld) [#/Vol] 16.5 10*3/uL 4.4-11.0 [facility] Basophils (Bld) [#/Vol] 8.7 10*3/uL 2.0-7.7 [facility] Basophils/100 WBC (Bld) 52.4 % 47-70 [facility] Basophils/100 WBC (Bld) 0.7 % 0-5 [facility] Basophils/100 WBC (Bld) 0.5 % 0-1 [facility] Chloride [Moles/Vol] 106 mmol/L 98-107 [facility] Eosinophils/100 WBC (Bld) 0.7 % 0-5 [facility] Glucose [Mass/Vol] 104 mg/dL 74-106 [facility] Comment on above: Fasting Glucose resu lt from 100 to 125 mg/dL suggests IMPAIRED HOMEOSTASIS per A.D.A. criteria. Neutrophils (Bld) [#/Vol] 8.7 10*3/uL 2.0-7.7 [facility] Neutrophils/100 WBC (Bld) 52.4 % 47-70 [facility] Potassium [Moles/Vol] 3.0 mmol/L 3.5-5.1 [facility] Comment on above: Slight Hemolysis, Re sult may be falsely increased. Sodium [Moles/Vol] 138 mmol/L 136-145 [facility] WBC (Bld) [#/Vol] 16.5 10*3/uL 4.4-11.0 [facility] Blood erythrocytes count (nu mber/volume)Ordered By: Luz Maria Matthews on 10-23-2023 RBC (Bld) [#/Vol] 3.78 10*6/uL 4.2-5.4 [facility] Blood hemoglobin measurement (mass/volume)Ordered By: Luz Maria Matthews on 10-23-2023 Hemoglobin (Bld) [Mass/Vol] 11.8 g/dL 12.0-15.0 [facility] Blood lymphocytes/100 leukoc ytesOrdered By: Luz Maria Matthews on 10-23-2023 Lymphocytes/100 WBC (Bld) 39.4 % 19-41 [facility] Blood manual differential co mment interpretation (narrative result)Ordered By: Luz Maria Matthews on 10-23-2023 Manual differential comment Pollo (Bld) [Interp] SCANNED [facility] Comment on above: LYMPHOCYTOSIS NOTED Blood monocytes/100 leukocyt esOrdered By: Luz Maria Matthews on 10-23-2023 Monocytes/100 WBC (Bld) 6.3 % 0-10 [facility] Blood platelet mean volumeOr dered By: Luz Maria Matthews on 10-23-2023 Platelet mean volume (Bld) [Entitic vol] 11.1 fL 6.2-12.0 [facility] Determination of erythrocyte mean corpuscular volume (MCV)Ordered By: Luz Maria Matthews on 10-23-2023 MCV (RBC) [Entitic vol] 98.1 fL 81-99 [facility] Hematocrit Auto (Bld) [Volum e fraction]Ordered By: Luz Maria Matthews on 10-23-2023 Hematocrit (Bld) [Volume fraction] 37.1 % 37-47 [facility] - Chemistry and C hemistry - challengeOrdered By: Luz Maria Matthews on 10-23-2023 CO2 [Moles/Vol] 22.0 mmol/L 21.0-32.0 [facility] Urea nitrogen/Creatinine [Mass ratio] 7.6 mg/mg 10-20 [facility] - Hematology and Cell countsOrdered By: Luz Maria Matthews on 10-23-2023 Erythrocyte distribution width (RBC) [Entitic vol] 54.8 fL 35.1-43.9 [facility] Erythrocyte distribution width (RBC) [Ratio] 15.1 % 11.6-14.6 [facility] Immature granulocytes/100 WBC (Bld) 0.700 % 0.0-0.9 [facility] Comment on above: IG% - Immature Granu locytes (promyelocytes, myelocytes and metamyelocytes) > 1% indicates that a LEFT SHIFT is Present. MCH (RBC) [Entitic mass] 31.2 pg 27.0-32.0 [facility] Nucleated RBC/100 WBC (Bld) [Ratio] 0 % 0-5 [facility] MCHC Auto (RBC) [Mass/Vol]Or dered By: Luz Maria Matthews on 10-23-2023 MCHC (RBC) [Mass/Vol] 31.8 g/dL 32-36 [facility] No Panel InformationOrdered By: Luz Maria Matthews on 10-23-2023 Estimated GFR (MDRD) Amer 35 mL/min >60 [facility] Comment on above: GFR Calc Estimated GFR (MDRD) Non-Af Amer 29 mL/min >60 [facility] Comment on above: Non- GFR Calc Parathyroid Hormone (Intact) 108.4 pg/mL 18.4-80.1 [facility] Vitamin D 25-Hydroxy 60.2 ng/mL [facility] Comment on above: Vitamin D 25(OH) Sta tus Range Deficiency <20 ng/mL (50nmol/L) Insufficiency 20 - 30 ng/mL (50 - 75 nmol/L) Sufficiency 30 - 100 ng/mL (75 - 250 nmol/L) Toxicity >100 ng/mL (>250 nmol/L) 31.2 pg 27.0-32.0 [facility] 15.1 % 11.6-14.6 [facility] 54.8 fl 35.1-43.9 [facility] 0.700 % 0.0-0.9 [facility] 0 % 0-5 [facility] 29 mL/min >60 [facility] 35 mL/min >60 [facility] 7.6 RATIO 10-20 [facility] 22.0 mmol/L 21.0-32.0 [facility] 60.2 ng/mL [facility] 108.4 pg/mL 18.4-80.1 [facility] Platelets bldOrdered By: Emmanuel Matthews on 10-23-2023 Platelets (Bld) [#/Vol] 479 10*3/uL 150-450 [facility] Serum or plasma albumin yunior urement (mass/volume)Ordered By: Luz Maria Matthews on 10-23-2023 Albumin [Mass/Vol] 2.4 g/dL 3.2-5.0 [facility] Serum or plasma calcium yunior urement (mass/volume)Ordered By: Luz Maria Matthews on 10-23-2023 Calcium [Mass/Vol] 7.9 mg/dL 8.5-10.1 [facility] Serum or plasma creatinine m easurement (mass/volume)Ordered By: Luz Maria Matthews on 10-23-2023 Creatinine [Mass/Vol] 1.84 mg/dL 0.55-1.02 [facility] Comment on above: The validity of the calculated GFR & GFRAA in patients over 70 years has not been determined. Clinical correlation is essential. Serum or plasma urea nitroge n measurement (mass/volume)Ordered By: Luz Maria Matthews on 10-23-2023 Urea nitrogen [Mass/Vol] 14 mg/dL 7-18 [facility] Absolute lymphocyte countOrd ered By: Carlene Bower on 10-09-2023 Lymphocytes Auto (Unsp spec) [#/Vol] 4.11 10*3/uL 0.83-4.51 [facility] Bacteria identified Cx Nom ( U)Ordered By: Carlene Bower on 10-09-2023 Culture, urine Mixed Gram Pos & Gra m Neg Org [facility] Basophil percentageOrdered B y: Carlene Bower on 10-09-2023 Basophil percentage >100 SEEN /hpf 0-5 [facility] Basophil percentage 1.3 mmol/L 0.4-2.0 [facility] Basophil percentage 115 mg/dL 74-106 [facility] Basophil percentage 8.3 g/dL 6.4-8.2 [facility] Basophil percentage 0.30 mg/dL 0.20-1.00 [facility] Basophil percentage 136 mmol/L 136-145 [facility] Basophil percentage 4.3 mmol/L 3.5-5.1 [facility] Basophil percentage 106 mmol/L 98-107 [facility] Basophils (Bld) [#/Vol] 15.5 10*3/uL 4.4-11.0 [facility] Basophils (Bld) [#/Vol] 10.0 10*3/uL 2.0-7.7 [facility] Basophils/100 WBC (Bld) 64.5 % 47-70 [facility] Basophils/100 WBC (Bld) 1.0 % 0-5 [facility] Basophils/100 WBC (Bld) 0.6 % 0-1 [facility] Bilirubin Test strip Ql (U)O rdered By: Carlene Bower on 10-09-2023 Bilirubin Ql (U) Negative Negative [facility] Blood erythrocytes count (nu mber/volume)Ordered By: Carlene Bower on 10-09-2023 RBC (Bld) [#/Vol] 3.76 10*6/uL 4.2-5.4 [facility] Blood hemoglobin measurement (mass/volume)Ordered By: Carlene Bower on 10-09-2023 Hemoglobin (Bld) [Mass/Vol] 11.6 g/dL 12.0-15.0 [facility] Blood lymphocytes/100 leukoc ytesOrdered By: Carlene Bower on 10-09-2023 Lymphocytes/100 WBC (Bld) 26.5 % 19-41 [facility] Blood monocytes/100 leukocyt esOrdered By: Carlene Bower on 10-09-2023 Monocytes/100 WBC (Bld) 5.7 % 0-10 [facility] Blood platelet mean volumeOr dered By: Carlene Bower on 10-09-2023 Platelet mean volume (Bld) [Entitic vol] 10.1 fL 6.2-12.0 [facility] Determination of erythrocyte mean corpuscular volume (MCV)Ordered By: Carlene Bower on 10-09-2023 MCV (RBC) [Entitic vol] 96.3 fL 81-99 [facility] Direct bilirubinOrdered By: Carlene Bower on 10-09-2023 Bilirubin.direct [Mass/Vol] 0.14 mg/dL 0.00-0.30 [facility] Hematocrit Auto (Bld) [Volum e fraction]Ordered By: Carlene Bower on 10-09-2023 Hematocrit (Bld) [Volume fraction] 36.2 % 37-47 [facility] Ketones Test strip Ql (U)Ord ered By: Carlene Bower on 10-09-2023 Ketones Ql (U) Negative Negative [facility] MCHC Auto (RBC) [Mass/Vol]Or dered By: Carlene Bower on 10-09-2023 MCHC (RBC) [Mass/Vol] 32.0 g/dL 32-36 [facility] Mucus LM Ql (Urine sed)Order ed By: Carlene Bower on 10-09-2023 Mucus Ql (Urine sed) 0 SEEN /hpf [facility] Nitrite Test strip Ql (U)Ord ered By: Carlene Bower on 10-09-2023 Nitrite Ql (U) Negative Negative [facility] No Panel InformationOrdered By: Carlene Bower on 10-09-2023 30.9 pg 27.0-32.0 [facility] 14.6 % 11.6-14.6 [facility] 51.8 fl 35.1-43.9 [facility] 1.700 % 0.0-0.9 [facility] 0 % 0-5 [facility] 10 mL/min >60 [facility] 12 mL/min >60 [facility] 9.3 RATIO 10-20 [facility] 6.3 g/dL 2.2-4.2 [facility] 92 U/L 45-117 [facility] 20 U/L 13-56 [facility] 22.0 mmol/L 21.0-32.0 [facility] No growth in 5 days. [facility] Platelets bldOrdered By: Eileen Bower on 10-09-2023 Platelets (Bld) [#/Vol] 461 10*3/uL 150-450 [facility] Protein Test strip Ql (U)Ord ered By: Carlene Bower on 10-09-2023 Protein Ql (U) 100 mg/dl Negative [facility] Serum or plasma albumin yunior urement (mass/volume)Ordered By: Carlene Bower on 10-09-2023 Albumin [Mass/Vol] 2.0 g/dL 3.2-5.0 [facility] Serum or plasma calcium yunior urement (mass/volume)Ordered By: Carlene Bower on 10-09-2023 Calcium [Mass/Vol] 8.0 mg/dL 8.5-10.1 [facility] Serum or plasma creatinine m easurement (mass/volume)Ordered By: Carlene Bower on 10-09-2023 Creatinine [Mass/Vol] 4.72 mg/dL 0.55-1.02 [facility] Serum or plasma urea nitroge n measurement (mass/volume)Ordered By: Carlene Bower on 10-09-2023 Urea nitrogen [Mass/Vol] 44 mg/dL 7-18 [facility] Squamous epithelial cells de tection in urine sediment by light microscopyOrdered By: Carlene Bower on 10-09-2023 Epithelial cells.squamous LM Ql (Urine sed) 0-5 SEEN /hpf 5-10 [facility] Thin prep Papanicolaou smear with manual screeningOrdered By: Carlene Bower on 10-09-2023 Thin prep Papanicolaou smear with manual screening 20 U/L 15-37 [facility] Thin prep Papanicolaou smear with manual screening 8 5-15 [facility] Urine blood detectionOrdered By: Carlene Bower on 10-09-2023 RBC Ql (U) 250 /ul Negative [facility] RBC Ql (U) 5-10 SEEN /hpf 0-5 [facility] Urine clarityOrdered By: Eileen Bower on 10-09-2023 Clarity (U) Cloudy Clear [facility] Urine color determinationOrd ered By: Carlene Bower on 10-09-2023 Color (U) Yellow Yellow [facility] Urine glucose detectionOrder ed By: Carlene Bower on 10-09-2023 Glucose Ql (U) Normal mg/dl Normal [facility] Urine leukocyte esterase det ection by dipstickOrdered By: Carlene Bower on 10-09-2023 Leukocyte esterase Test strip Ql (U) 500 /ul Negative [facility] Urine pHOrdered By: Carlene Bower on 10-09-2023 pH (U) 6.0 [pH] 5.0 - 8.0 [facility] Urine sediment bacteria coun t by microscopy (number/high power field)Ordered By: Carlene Bower on 10-09-2023 Bacteria LM.HPF (Urine sed) [#/Area] 2 /[HPF] None Seen [facility] Urine specific gravity measu rementOrdered By: Carlene Bower on 10-09-2023 Specific gravity (U) [Rel density] 1.010 1.002-1.03 0 [facility] Urobilinogen Auto test strip Ql (U)Ordered By: Carlene Bower on 10-09-2023 Urobilinogen Ql (U) Normal mg/dl Normal [facility] Absolute lymphocyte countOrd ered By: Gerardo García on 10-08-2023 Lymphocytes Auto (Unsp spec) [#/Vol] 5.09 10*3/uL 0.83-4.51 [facility] Bacteria identified Cx Nom ( U)Ordered By: Gerardo García on 10-08-2023 Culture, urine Escherichia coli [facility] Basophil percentageOrdered B y: Gerardo García on 10-08-2023 Basophil percentage 134 mg/dL 74-106 [facility] Basophil percentage 133 mmol/L 136-145 [facility] Basophil percentage 4.4 mmol/L 3.5-5.1 [facility] Basophil percentage 106 mmol/L 98-107 [facility] Basophil percentage 1.2 mmol/L 0.4-2.0 [facility] Basophils (Bld) [#/Vol] 20.2 10*3/uL 4.4-11.0 [facility] Basophils (Bld) [#/Vol] 13.4 10*3/uL 2.0-7.7 [facility] Basophils/100 WBC (Bld) 0.4 % 0-1 [facility] Basophils/100 WBC (Bld) 66.6 % 47-70 [facility] Basophils/100 WBC (Bld) 0.6 % 0-5 [facility] Chloride [Moles/Vol] 106 mmol/L 98-107 [facility] Eosinophils/100 WBC (Bld) 0.6 % 0-5 [facility] Glucose [Mass/Vol] 134 mg/dL 74-106 [facility] Comment on above: Fasting Glucose resu lt greater than or equal to 126 mg/dL suggests DIABETES MELLITUS per A.D.A. criteria. Lactate [Moles/Vol] 1.2 mmol/L 0.4-2.0 [facility] Neutrophils (Bld) [#/Vol] 13.4 10*3/uL 2.0-7.7 [facility] Neutrophils/100 WBC (Bld) 66.6 % 47-70 [facility] Potassium [Moles/Vol] 4.4 mmol/L 3.5-5.1 [facility] Sodium [Moles/Vol] 133 mmol/L 136-145 [facility] WBC (Bld) [#/Vol] 20.2 10*3/uL 4.4-11.0 [facility] Blood erythrocytes count (nu mber/volume)Ordered By: Gerardo García on 10-08-2023 RBC (Bld) [#/Vol] 3.94 10*6/uL 4.2-5.4 [facility] Blood hemoglobin measurement (mass/volume)Ordered By: Gerardo García on 10-08-2023 Hemoglobin (Bld) [Mass/Vol] 12.5 g/dL 12.0-15.0 [facility] Blood lymphocytes/100 leukoc ytesOrdered By: Gerardo García on 10-08-2023 Lymphocytes/100 WBC (Bld) 25.2 % 19-41 [facility] Blood manual differential co mment interpretation (narrative result)Ordered By: Gerardo García on 10-08-2023 Manual differential comment Pollo (Bld) [Interp] SCANNED [facility] Comment on above: LYMPHOCYTOSIS NOTED Blood monocytes/100 leukocyt esOrdered By: Gerardo García on 10-08-2023 Monocytes/100 WBC (Bld) 5.6 % 0-10 [facility] Blood platelet mean volumeOr dered By: Gerardo García on 10-08-2023 Platelet mean volume (Bld) [Entitic vol] 9.7 fL 6.2-12.0 [facility] Determination of erythrocyte mean corpuscular volume (MCV)Ordered By: Gerardo García on 10-08-2023 MCV (RBC) [Entitic vol] 96.4 fL 81-99 [facility] Erythrocyte sedimentation ra teOrdered By: Gerardo García on 10-08-2023 ESR (Bld) [Velocity] mm/h 0-30 [facility] Hematocrit Auto (Bld) [Volum e fraction]Ordered By: Gerardo García on 10-08-2023 Hematocrit (Bld) [Volume fraction] 38.0 % 37-47 [facility] - Chemistry and C hemistry - challengeOrdered By: Gerardo García on 10-08-2023 CO2 [Moles/Vol] 19.0 mmol/L 21.0-32.0 [facility] Urea nitrogen/Creatinine [Mass ratio] 9.3 mg/mg 09-07 [facility] - Hematology and Cell countsOrdered By: Gerardo García on 10-08-2023 Erythrocyte distribution width (RBC) [Entitic vol] 52.0 fL 35.1-43.9 [facility] Erythrocyte distribution width (RBC) [Ratio] 14.6 % 11.6-14.6 [facility] Immature granulocytes/100 WBC (Bld) 1.600 % 0.0-0.9 [facility] Comment on above: IG% - Immature Granu locytes (promyelocytes, myelocytes and metamyelocytes) > 1% indicates that a LEFT SHIFT is Present. MCH (RBC) [Entitic mass] 31.7 pg 27.0-32.0 [facility] Nucleated RBC/100 WBC (Bld) [Ratio] 0 % 0-5 [facility] MCHC Auto (RBC) [Mass/Vol]Or dered By: Gerardo García on 10-08-2023 MCHC (RBC) [Mass/Vol] 32.9 g/dL 32-36 [facility] No Panel InformationOrdered By: Gerardo García on 10-08-2023 Estimated GFR (MDRD) Amer 13 mL/min >60 [facility] Comment on above: GFR Calc Estimated GFR (MDRD) Non-Af Amer 11 mL/min >60 [facility] Comment on above: Non- GFR Calc 31.7 pg 27.0-32.0 [facility] 14.6 % 11.6-14.6 [facility] 52.0 fl 35.1-43.9 [facility] 1.600 % 0.0-0.9 [facility] 0 % 0-5 [facility] 11 mL/min >60 [facility] 13 mL/min >60 [facility] 9.3 RATIO 09-07 [facility] 19.0 mmol/L 21.0-32.0 [facility] No growth in 5 days. [facility] Platelets bldOrdered By: Gerardo García on 10-08-2023 Platelets (Bld) [#/Vol] 554 10*3/uL 150-450 [facility] Serum or plasma C reactive p rotein measurement (mass/volume)Ordered By: Gerardo García on 10-08-2023 CRP [Mass/Vol] 312.00 mg/L 0.0-3.0 [facility] Comment on above: C-Reactive Protein ( CRP) provides useful information for thediagnosis, therapy and monitoring of inflammatory processesand associated diseases. For the evaluation of Relative Riskfor Cardiovascular Disease, a High Sensitivity CRP (HSCRP)should be ordered. Serum or plasma calcium yunior urement (mass/volume)Ordered By: Gerardo García on 10-08-2023 Calcium [Mass/Vol] 8.1 mg/dL 8.5-10.1 [facility] Serum or plasma creatinine m easurement (mass/volume)Ordered By: Gerardo García on 10-08-2023 Creatinine [Mass/Vol] 4.41 mg/dL 0.55-1.02 [facility] Comment on above: The validity of the calculated GFR & GFRAA in patients over 70 years has not been determined. Clinical correlation is essential. Serum or plasma urea nitroge n measurement (mass/volume)Ordered By: Gerardo García on 10-08-2023 Urea nitrogen [Mass/Vol] 41 mg/dL 7-18 [facility] Thin prep Papanicolaou smear with manual screeningOrdered By: Gerardo García on 10-08-2023 Thin prep Papanicolaou smear with manual screening 8 5-15 [facility] Absolute lymphocyte countOrd ered By: Gearrdo García on 10-05-2023 Lymphocytes Auto (Unsp spec) [#/Vol] 4.77 10*3/uL 0.83-4.51 [facility] Basophil percentageOrdered B y: Gerardo García on 10-05-2023 Basophil percentage 125 mg/dL 74-106 [facility] Basophil percentage 136 mmol/L 136-145 [facility] Basophil percentage 4.4 mmol/L 3.5-5.1 [facility] Basophil percentage 107 mmol/L 98-107 [facility] Basophils (Bld) [#/Vol] 15.4 10*3/uL 4.4-11.0 [facility] Basophils (Bld) [#/Vol] 9.2 10*3/uL 2.0-7.7 [facility] Basophils/100 WBC (Bld) 0.5 % 0-1 [facility] Basophils/100 WBC (Bld) 59.7 % 47-70 [facility] Basophils/100 WBC (Bld) 1.0 % 0-5 [facility] Chloride [Moles/Vol] 107 mmol/L 98-107 [facility] Eosinophils/100 WBC (Bld) 1.0 % 0-5 [facility] Glucose [Mass/Vol] 125 mg/dL 74-106 [facility] Comment on above: Fasting Glucose resu lt from 100 to 125 mg/dL suggests IMPAIRED HOMEOSTASIS per A.D.A. criteria. Neutrophils (Bld) [#/Vol] 9.2 10*3/uL 2.0-7.7 [facility] Neutrophils/100 WBC (Bld) 59.7 % 47-70 [facility] Potassium [Moles/Vol] 4.4 mmol/L 3.5-5.1 [facility] Sodium [Moles/Vol] 136 mmol/L 136-145 [facility] WBC (Bld) [#/Vol] 15.4 10*3/uL 4.4-11.0 [facility] Blood erythrocytes count (nu mber/volume)Ordered By: Gerardo García on 10-05-2023 RBC (Bld) [#/Vol] 4.00 10*6/uL 4.2-5.4 [facility] Blood hemoglobin measurement (mass/volume)Ordered By: Gerardo García on 10-05-2023 Hemoglobin (Bld) [Mass/Vol] 12.6 g/dL 12.0-15.0 [facility] Blood lymphocytes/100 leukoc ytesOrdered By: Gerardo García on 10-05-2023 Lymphocytes/100 WBC (Bld) 31.0 % 19-41 [facility] Blood monocytes/100 leukocyt esOrdered By: Gerardo García on 10-05-2023 Monocytes/100 WBC (Bld) 6.8 % 0-10 [facility] Blood platelet mean volumeOr dered By: Gerardo Garcaí on 10-05-2023 Platelet mean volume (Bld) [Entitic vol] 10.0 fL 6.2-12.0 [facility] Determination of erythrocyte mean corpuscular volume (MCV)Ordered By: Gerardo García on 10-05-2023 MCV (RBC) [Entitic vol] 97.0 fL 81-99 [facility] Hematocrit Auto (Bld) [Volum e fraction]Ordered By: Gerardo García on 10-05-2023 Hematocrit (Bld) [Volume fraction] 38.8 % 37-47 [facility] - Chemistry and C hemistry - challengeOrdered By: Gerardo Ricky on 10-05-2023 CO2 [Moles/Vol] 22.0 mmol/L 21.0-32.0 [facility] Urea nitrogen/Creatinine [Mass ratio] 9.4 mg/mg 10-20 [facility] - Hematology and Cell countsOrdered By: Gerardo García on 10-05-2023 Erythrocyte distribution width (RBC) [Entitic vol] 52.1 fL 35.1-43.9 [facility] Erythrocyte distribution width (RBC) [Ratio] 14.6 % 11.6-14.6 [facility] Immature granulocytes/100 WBC (Bld) 1.000 % 0.0-0.9 [facility] Comment on above: IG% - Immature Granu locytes (promyelocytes, myelocytes and metamyelocytes) > 1% indicates that a LEFT SHIFT is Present. MCH (RBC) [Entitic mass] 31.5 pg 27.0-32.0 [facility] Nucleated RBC/100 WBC (Bld) [Ratio] 0 % 0-5 [facility] MCHC Auto (RBC) [Mass/Vol]Or dered By: Gerardo García on 10-05-2023 MCHC (RBC) [Mass/Vol] 32.5 g/dL 32-36 [facility] No Panel InformationOrdered By: Gerardo García on 10-05-2023 Estimated GFR (MDRD) Amer 18 mL/min >60 [facility] Comment on above: GFR Calc Estimated GFR (MDRD) Non-Af Amer 15 mL/min >60 [facility] Comment on above: Non- GFR Calc 31.5 pg 27.0-32.0 [facility] 14.6 % 11.6-14.6 [facility] 52.1 fl 35.1-43.9 [facility] 1.000 % 0.0-0.9 [facility] 0 % 0-5 [facility] 15 mL/min >60 [facility] 18 mL/min >60 [facility] 9.4 RATIO 10-20 [facility] 22.0 mmol/L 21.0-32.0 [facility] Platelets bldOrdered By: Gerardo García on 10-05-2023 Platelets (Bld) [#/Vol] 564 10*3/uL 150-450 [facility] Serum or plasma calcium yunior urement (mass/volume)Ordered By: Gerardo García on 10-05-2023 Calcium [Mass/Vol] 8.3 mg/dL 8.5-10.1 [facility] Serum or plasma creatinine m easurement (mass/volume)Ordered By: Gerardo García on 10-05-2023 Creatinine [Mass/Vol] 3.19 mg/dL 0.55-1.02 [facility] Comment on above: The validity of the calculated GFR & GFRAA in patients over 70 years has not been determined. Clinical correlation is essential. Serum or plasma urea nitroge n measurement (mass/volume)Ordered By: Gerardo García on 10-05-2023 Urea nitrogen [Mass/Vol] 30 mg/dL 7-18 [facility] Thin prep Papanicolaou smear with manual screeningOrdered By: Gerardo García on 10-05-2023 Thin prep Papanicolaou smear with manual screening 7 5-15 [facility] Absolute lymphocyte countOrd ered By: Kassy Mitchell on 09-25-2023 Lymphocytes Auto (Unsp spec) [#/Vol] 6.81 10*3/uL 0.83-4.51 [facility] Albumin Elph [Mass/Vol]Order ed By: Kassy iMtchell on 09-25-2023 Albumin [Mass/Vol] 2.8 g/dL 2.9-4.4 [facility] Basophil percentageOrdered B y: Kassy Mitchell on 09-25-2023 Basophil percentage 106 mg/dL 74-106 [facility] Basophil percentage 8.3 g/dL 6.4-8.2 [facility] Basophil percentage 0.70 mg/dL 0.20-1.00 [facility] Basophil percentage 134 mmol/L 136-145 [facility] Basophil percentage 4.1 mmol/L 3.5-5.1 [facility] Basophil percentage 103 mmol/L 98-107 [facility] Basophil percentage 223 U/L 84-246 [facility] Basophils (Bld) [#/Vol] 19.2 10*3/uL 4.4-11.0 [facility] Basophils (Bld) [#/Vol] 10.8 10*3/uL 2.0-7.7 [facility] Basophils/100 WBC (Bld) 0.6 % 0-1 [facility] Basophils/100 WBC (Bld) 55.9 % 47-70 [facility] Basophils/100 WBC (Bld) 1.8 % 0-5 [facility] Bilirubin [Mass/Vol] 0.70 mg/dL 0.20-1.00 [facility] Comment on above: For patients on eltr ombopag therapy, use of Dimension [place] TBIL is not recommended. Chloride [Moles/Vol] 103 mmol/L 98-107 [facility] Eosinophils/100 WBC (Bld) 1.8 % 0-5 [facility] Glucose [Mass/Vol] 106 mg/dL 74-106 [facility] Comment on above: Fasting Glucose resu lt from 100 to 125 mg/dL suggests IMPAIRED HOMEOSTASIS per A.D.A. criteria. LDH [Catalytic activity/Vol] 223 U/L 84-246 [facility] Neutrophils (Bld) [#/Vol] 10.8 10*3/uL 2.0-7.7 [facility] Neutrophils/100 WBC (Bld) 55.9 % 47-70 [facility] Potassium [Moles/Vol] 4.1 mmol/L 3.5-5.1 [facility] Protein [Mass/Vol] 8.3 g/dL 6.4-8.2 [facility] Sodium [Moles/Vol] 134 mmol/L 136-145 [facility] WBC (Bld) [#/Vol] 19.2 10*3/uL 4.4-11.0 [facility] Blood erythrocytes count (nu mber/volume)Ordered By: Kassy Mitchell on 09-25-2023 RBC (Bld) [#/Vol] 4.33 10*6/uL 4.2-5.4 [facility] Blood hemoglobin measurement (mass/volume)Ordered By: Kassy Mitchell on 09-25-2023 Hemoglobin (Bld) [Mass/Vol] 13.4 g/dL 12.0-15.0 [facility] Blood lymphocytes/100 leukoc ytesOrdered By: Kassy Mitchell on 09-25-2023 Lymphocytes/100 WBC (Bld) 35.4 % 19-41 [facility] Blood manual differential co mment interpretation (narrative result)Ordered By: Kassy Mitchell on 09-25-2023 Manual differential comment Pollo (Bld) [Interp] COMMENT [facility] Comment on above: LYMPHOCYTOSIS. Blood monocytes/100 leukocyt esOrdered By: Kassy Mitchell on 09-25-2023 Monocytes/100 WBC (Bld) 5.4 % 0-10 [facility] Blood platelet mean volumeOr dered By: Kassy Mitchell on 09-25-2023 Platelet mean volume (Bld) [Entitic vol] 10.1 fL 6.2-12.0 [facility] Determination of erythrocyte mean corpuscular volume (MCV)Ordered By: Kassy Mitchell on 09-25-2023 MCV (RBC) [Entitic vol] 97.5 fL 81-99 [facility] Hematocrit Auto (Bld) [Volum e fraction]Ordered By: Kassy Mitchell on 09-25-2023 Hematocrit (Bld) [Volume fraction] 42.2 % 37-47 [facility] Interpretation of serum or p lasma protein pattern by immunofixation (narrative resultOrdered By: Kassy Mitchell on 09-25-2023 Protein Fractions Immunofixation Pollo [Interp] Not Observed g/dL Not Observed [facility] - Chemistry and C hemistry - challengeOrdered By: Kassy Mitchell on 09-25-2023 ALP [Catalytic activity/Vol] 108 U/L 45-117 [facility] ALT [Catalytic activity/Vol] 14 U/L 13-56 [facility] CO2 [Moles/Vol] 23.0 mmol/L 21.0-32.0 [facility] Urea nitrogen/Creatinine [Mass ratio] 7.3 mg/mg 10-20 [facility] - Hematology and Cell countsOrdered By: Kassy Mitchell on 09-25-2023 Erythrocyte distribution width (RBC) [Entitic vol] 52.2 fL 35.1-43.9 [facility] Erythrocyte distribution width (RBC) [Ratio] 14.5 % 11.6-14.6 [facility] Immature granulocytes/100 WBC (Bld) 0.900 % 0.0-0.9 [facility] Comment on above: IG% - Immature Granu locytes (promyelocytes, myelocytes and metamyelocytes) > 1% indicates that a LEFT SHIFT is Present. MCH (RBC) [Entitic mass] 30.9 pg 27.0-32.0 [facility] Nucleated RBC/100 WBC (Bld) [Ratio] 0 % 0-5 [facility] MCHC Auto (RBC) [Mass/Vol]Or dered By: Kassy Mitchell on 09-25-2023 MCHC (RBC) [Mass/Vol] 31.8 g/dL 32-36 [facility] No Panel InformationOrdered By: Kassy Mitchell on 09-25-2023 Addendum Document Comment . [facility] Comment on above: Protein electrophore sis scan will follow via computer,mail, or press operator helper delivery. Estimated GFR (MDRD) Amer 22 mL/min >60 [facility] Comment on above: GFR Calc Estimated GFR (MDRD) Non-Af Amer 18 mL/min >60 [facility] Comment on above: Non- GFR Calc Free Lambda Light Chains, Quant 126.2 mg/L 5.7-26.3 [facility] 30.9 pg 27.0-32.0 [facility] 14.5 % 11.6-14.6 [facility] 52.2 fl 35.1-43.9 [facility] 0.900 % 0.0-0.9 [facility] 0 % 0-5 [facility] 18 mL/min >60 [facility] 22 mL/min >60 [facility] 7.3 RATIO 10-20 [facility] 108 U/L 45-117 [facility] 14 U/L 13-56 [facility] 23.0 mmol/L 21.0-32.0 [facility] 126.2 mg/L 5.7-26.3 [facility] Platelets bldOrdered By: Jose Angel Mitchell on 09-25-2023 Platelets (Bld) [#/Vol] 517 10*3/uL 150-450 [facility] Serum [id number] measu rement by electrophoresisOrdered By: Kassy Mitchell on 09-25-2023 Alpha 1 globulin Elph [Mass/Vol] 0.4 g/dL 0.0-0.4 [facility] Alpha 1 globulin Elph [Mass/Vol] 1.2 g/dL 0.4-1.0 [facility] Serum globulin measurement ( mass/volume)Ordered By: Kassy Mitchell on 09-25-2023 Globulin (S) [Mass/Vol] 4.9 g/dL 2.2-3.9 [facility] Serum immunoglobulin kappa l ight chains/immunoglobulin lambda light chains mass ratioOrdered By: Kassy Mitchell on 09-25-2023 Immunoglobulin light chains.kappa/Immunoglobu rustam light chains.lambda (S) [Mass ratio] 1.58 0.26-1.65 [facility] Comment on above: Performed at: [address] [id number] Director: Gaudencio Alexandre PhD, Phone: [phone] Serum or plasma IgA measurem ent (mass/volume)Ordered By: Kassy Mitchell on 09-25-2023 IgA [Mass/Vol] 1271 mg/dL 64-422 [facility] Comment on above: Results confirmed on dilution. Serum or plasma IgG measurem ent (mass/volume)Ordered By: Kassy Mitchell on 09-25-2023 IgG [Mass/Vol] 1892 mg/dL 586-1602 [facility] Serum or plasma IgM measurem ent (mass/volume)Ordered By: Kassy Mitchell on 09-25-2023 IgM [Mass/Vol] 53 mg/dL 26-217 [facility] Serum or plasma albumin yunior urement (mass/volume)Ordered By: Kassy Mitchell on 09-25-2023 Albumin [Mass/Vol] 2.3 g/dL 3.2-5.0 [facility] Serum or plasma albumin/glob ulin mass ratioOrdered By: Kassy Mitchell on 09-25-2023 Albumin/Globulin [Mass ratio] 0.4 {ratio} 0.9-2.4 [facility] Serum or plasma beta globuli n measurement by electrophoresis (mass/volume)Ordered By: Kassy Mitchell on 09-25-2023 Beta globulin Elph [Mass/Vol] 1.4 g/dL 0.7-1.3 [facility] Serum or plasma calcium yunior urement (mass/volume)Ordered By: Kassy Mitchell on 09-25-2023 Calcium [Mass/Vol] 8.1 mg/dL 8.5-10.1 [facility] Serum or plasma creatinine m easurement (mass/volume)Ordered By: Kassy Mitchell on 09-25-2023 Creatinine [Mass/Vol] 2.75 mg/dL 0.55-1.02 [facility] Comment on above: The validity of the calculated GFR & GFRAA in patients over 70 years has not been determined. Clinical correlation is essential. Serum or plasma gamma globul in measurement by electrophoresis (mass/volume)Ordered By: Kassy Mitchell on 09-25-2023 Gamma globulin Elph [Mass/Vol] 2.0 g/dL 0.4-1.8 [facility] Serum or plasma immunoelectr ophoresis interpretation (nominal result)Ordered By: Kassy Mitchell on 09-25-2023 Interpretation IEP [Interp] Comment . [facility] Comment on above: No monoclonality det ected. Serum or plasma immunoglobul in kappa light chains measurement (mass/volume)Ordered By: Kassy Mitchell on 09-25-2023 Immunoglobulin light chains.kappa [Mass/Vol] 199.9 mg/L 3.3-19.4 [facility] Serum or plasma urea nitroge n measurement (mass/volume)Ordered By: Kassy Mitchell on 09-25-2023 Urea nitrogen [Mass/Vol] 20 mg/dL 7-18 [facility] Thin prep Papanicolaou smear with manual screeningOrdered By: Kassy Mitchell on 09-25-2023 Thin prep Papanicolaou smear with manual screening 17 U/L 15-37 [facility] Thin prep Papanicolaou smear with manual screening 8 5-15 [facility] Thin prep Papanicolaou smear with manual screening 0.6 0.7-1.7 [facility] Total protein bloodOrdered B y: Kassy Mitchell on 09-25-2023 Protein [Mass/Vol] 7.7 g/dL 6.0-8.5 [facility] Absolute lymphocyte countOrd ered By: Alivia Mcrae on 09-22-2023 Lymphocytes Auto (Unsp spec) [#/Vol] 5.10 10*3/uL 0.83-4.51 [facility] Basophil percentageOrdered B y: Alivia Mcrae on 09-22-2023 Basophil percentage 88 mg/dL 74-106 [facility] Basophil percentage 142 mmol/L 136-145 [facility] Basophil percentage 3.3 mmol/L 3.5-5.1 [facility] Basophil percentage 110 mmol/L 98-107 [facility] Basophils (Bld) [#/Vol] 12.6 10*3/uL 4.4-11.0 [facility] Basophils (Bld) [#/Vol] 6.2 10*3/uL 2.0-7.7 [facility] Basophils/100 WBC (Bld) 0.5 % 0-1 [facility] Basophils/100 WBC (Bld) 48.9 % 47-70 [facility] Basophils/100 WBC (Bld) 2.0 % 0-5 [facility] Chloride [Moles/Vol] 110 mmol/L 98-107 [facility] Eosinophils/100 WBC (Bld) 2.0 % 0-5 [facility] Glucose [Mass/Vol] 88 mg/dL 74-106 [facility] Neutrophils (Bld) [#/Vol] 6.2 10*3/uL 2.0-7.7 [facility] Neutrophils/100 WBC (Bld) 48.9 % 47-70 [facility] Potassium [Moles/Vol] 3.3 mmol/L 3.5-5.1 [facility] Sodium [Moles/Vol] 142 mmol/L 136-145 [facility] WBC (Bld) [#/Vol] 12.6 10*3/uL 4.4-11.0 [facility] Blood erythrocytes count (nu mber/volume)Ordered By: Alivia Mcrae on 09-22-2023 RBC (Bld) [#/Vol] 3.85 10*6/uL 4.2-5.4 [facility] Blood hemoglobin measurement (mass/volume)Ordered By: Alivia Mcrae on 09-22-2023 Hemoglobin (Bld) [Mass/Vol] 12.1 g/dL 12.0-15.0 [facility] Blood lymphocytes/100 leukoc ytesOrdered By: Alivia Mcrae on 09-22-2023 Lymphocytes/100 WBC (Bld) 40.4 % 19-41 [facility] Blood manual differential co mment interpretation (narrative result)Ordered By: Alivia Mcrae on 09-22-2023 Manual differential comment Pollo (Bld) [Interp] SCANNED [facility] Blood monocytes/100 leukocyt esOrdered By: Alivia Mcrae on 09-22-2023 Monocytes/100 WBC (Bld) 7.5 % 0-10 [facility] Blood platelet mean volumeOr dered By: Alivia Mcrae on 09-22-2023 Platelet mean volume (Bld) [Entitic vol] 10.6 fL 6.2-12.0 [facility] Determination of erythrocyte mean corpuscular volume (MCV)Ordered By: Alivia Mcrae on 09-22-2023 MCV (RBC) [Entitic vol] 97.9 fL 81-99 [facility] Hematocrit Auto (Bld) [Volum e fraction]Ordered By: Alivia Mcrae on 09-22-2023 Hematocrit (Bld) [Volume fraction] 37.7 % 37-47 [facility] - Chemistry and C hemistry - challengeOrdered By: Alivia Mcrae on 09-22-2023 CO2 [Moles/Vol] 23.0 mmol/L 21.0-32.0 [facility] Urea nitrogen/Creatinine [Mass ratio] 8.3 mg/mg 10-20 [facility] - Hematology and Cell countsOrdered By: Alivia Mcrae on 09-22-2023 Erythrocyte distribution width (RBC) [Entitic vol] 52.6 fL 35.1-43.9 [facility] Erythrocyte distribution width (RBC) [Ratio] 14.6 % 11.6-14.6 [facility] Immature granulocytes/100 WBC (Bld) 0.700 % 0.0-0.9 [facility] Comment on above: IG% - Immature Granu locytes (promyelocytes, myelocytes and metamyelocytes) > 1% indicates that a LEFT SHIFT is Present. MCH (RBC) [Entitic mass] 31.4 pg 27.0-32.0 [facility] Nucleated RBC/100 WBC (Bld) [Ratio] 0 % 0-5 [facility] MCHC Auto (RBC) [Mass/Vol]Or dered By: Alivia Mcrae on 09-22-2023 MCHC (RBC) [Mass/Vol] 32.1 g/dL 32-36 [facility] No Panel InformationOrdered By: Alivia Mcrae on 09-22-2023 Estimated Creatinine Clearance Calc 25.39 ml/min [facility] Estimated GFR (MDRD) Amer 31 mL/min >60 [facility] Comment on above: GFR Calc Estimated GFR (MDRD) Non-Af Amer 25 mL/min >60 [facility] Comment on above: Non- GFR Calc 31.4 pg 27.0-32.0 [facility] 14.6 % 11.6-14.6 [facility] 52.6 fl 35.1-43.9 [facility] 0.700 % 0.0-0.9 [facility] 0 % 0-5 [facility] 25 mL/min >60 [facility] 31 mL/min >60 [facility] 25.39 ml/min [facility] 8.3 RATIO 10-20 [facility] 23.0 mmol/L 21.0-32.0 [facility] Platelets bldOrdered By: Mariya Mcrae on 09-22-2023 Platelets (Bld) [#/Vol] 364 10*3/uL 150-450 [facility] Serum or plasma calcium yunior urement (mass/volume)Ordered By: Alivia Mcrae on 09-22-2023 Calcium [Mass/Vol] 8.1 mg/dL 8.5-10.1 [facility] Serum or plasma creatinine m easurement (mass/volume)Ordered By: Alivia Mcrae on 09-22-2023 Creatinine [Mass/Vol] 2.05 mg/dL 0.55-1.02 [facility] Comment on above: The validity of the calculated GFR & GFRAA in patients over 70 years has not been determined. Clinical correlation is essential. Serum or plasma urea nitroge n measurement (mass/volume)Ordered By: Alivia Mcrae on 09-22-2023 Urea nitrogen [Mass/Vol] 17 mg/dL 7-18 [facility] Thin prep Papanicolaou smear with manual screeningOrdered By: Alivia Mcrae on 09-22-2023 Thin prep Papanicolaou smear with manual screening 9 5-15 [facility] Basophil percentageOrdered B y: Andres Fraser on 09-20-2023 Basophil percentage 3.9 mg/dL 2.5-4.9 [facility] Absolute lymphocyte countOrd ered By: Altaf Villa on 09-19-2023 Lymphocytes Auto (Unsp spec) [#/Vol] 6.02 10*3/uL 0.83-4.51 [facility] Bacteria identified Cx Nom ( U)Ordered By: Altafclaudia Villa on 09-19-2023 Culture, urine Klebsiella pneumonia e sp pneum [facility] Basophil percentageOrdered B y: Altafclaudia Villa on 09-19-2023 Basophil percentage >100 SEEN /hpf 0-5 [facility] Comment on above: Microscopic field is filled. Other elements may be obscured. Basophils/100 WBC (Bld) 0.4 % 0-1 [facility] Chloride [Moles/Vol] 104 mmol/L 98-107 [facility] Eosinophils/100 WBC (Bld) 0.3 % 0-5 [facility] Glucose [Mass/Vol] 98 mg/dL 74-106 [facility] Neutrophils (Bld) [#/Vol] 13.4 10*3/uL 2.0-7.7 [facility] Neutrophils/100 WBC (Bld) 64.2 % 47-70 [facility] Potassium [Moles/Vol] 4.1 mmol/L 3.5-5.1 [facility] Sodium [Moles/Vol] 134 mmol/L 136-145 [facility] WBC (Bld) [#/Vol] 20.8 10*3/uL 4.4-11.0 [facility] Bilirubin Test strip Ql (U)O rdered By: Altaf Villa on 09-19-2023 Bilirubin Ql (U) Negative Negative [facility] Blood erythrocytes count (nu mber/volume)Ordered By: Altaf Villa on 09-19-2023 RBC (Bld) [#/Vol] 4.54 10*6/uL 4.2-5.4 [facility] Blood hemoglobin measurement (mass/volume)Ordered By: Altaf Villa on 09-19-2023 Hemoglobin (Bld) [Mass/Vol] 14.3 g/dL 12.0-15.0 [facility] Blood lymphocytes/100 leukoc ytesOrdered By: Altaf Villa on 09-19-2023 Lymphocytes/100 WBC (Bld) 28.9 % 19-41 [facility] Blood manual differential co mment interpretation (narrative result)Ordered By: Altaf Villa on 09-19-2023 Manual differential comment Pollo (Bld) [Interp] SCANNED [facility] Blood monocytes/100 leukocyt esOrdered By: Altaf Villa on 09-19-2023 Monocytes/100 WBC (Bld) 5.5 % 0-10 [facility] Blood platelet mean volumeOr dered By: Altaf Villa on 09-19-2023 Platelet mean volume (Bld) [Entitic vol] 10.2 fL 6.2-12.0 [facility] Clostridium difficile detect ion by polymerase chain reactionOrdered By: Altaf Villa on 09-19-2023 C. difficile DNA BOBBI+probe Ql (Unsp spec) [facility] C. difficile DNA BOBBI+probe Ql (Unsp spec) [facility] Culture, urineOrdered By: Eric Villa on 09-19-2023 Bacteria identified Cx Nom (U) Klebsiella pneumoniae sp pneum [facility] Bacteria identified Cx Nom (U) Klebsiella pneumoniae sp pneum [facility] Determination of erythrocyte mean corpuscular volume (MCV)Ordered By: Altaf Villa on 09-19-2023 MCV (RBC) [Entitic vol] 96.3 fL 81-99 [facility] Hematocrit Auto (Bld) [Volum e fraction]Ordered By: Altaf Villa on 09-19-2023 Hematocrit (Bld) [Volume fraction] 43.7 % 37-47 [facility] Ketones Test strip Ql (U)Ord ered By: Altaf Villa on 09-19-2023 Ketones Ql (U) Negative Negative [facility] - Chemistry and C hemistry - challengeOrdered By: Altaf Villa on 09-19-2023 CO2 [Moles/Vol] 20.0 mmol/L 21.0-32.0 [facility] Urea nitrogen/Creatinine [Mass ratio] 8.0 mg/mg 10-20 [facility] - Hematology and Cell countsOrdered By: Altaf Villa on 09-19-2023 Erythrocyte distribution width (RBC) [Entitic vol] 51.6 fL 35.1-43.9 [facility] Erythrocyte distribution width (RBC) [Ratio] 14.6 % 11.6-14.6 [facility] Immature granulocytes/100 WBC (Bld) 0.700 % 0.0-0.9 [facility] Comment on above: IG% - Immature Granu locytes (promyelocytes, myelocytes and metamyelocytes) > 1% indicates that a LEFT SHIFT is Present. MCH (RBC) [Entitic mass] 31.5 pg 27.0-32.0 [facility] Nucleated RBC/100 WBC (Bld) [Ratio] 0 % 0-5 [facility] - Microbiology an d Antimicrobial susceptibilityOrdered By: Andres Fraser on 09-19-2023 Bacteria identified Cx Nom (Bld) No growth in 5 days. [facility] MCHC Auto (RBC) [Mass/Vol]Or dered By: Altaf Villa on 09-19-2023 MCHC (RBC) [Mass/Vol] 32.7 g/dL 32-36 [facility] Mucus LM Ql (Urine sed)Order ed By: Altaf Villa on 09-19-2023 Mucus Ql (Urine sed) 0 SEEN /hpf [facility] Nitrite Test strip Ql (U)Ord ered By: Altaf Villa on 09-19-2023 Nitrite Ql (U) Positive Negative [facility] No Panel InformationOrdered By: Andres Fraser on 09-19-2023 No growth in 5 days. [facility] No Panel InformationOrdered By: Altaf Villa on 09-19-2023 Estimated Creatinine Clearance Calc 18.07 ml/min [facility] Estimated GFR (MDRD) Amer 21 mL/min >60 [facility] Comment on above: GFR Calc Estimated GFR (MDRD) Non-Af Amer 17 mL/min >60 [facility] Comment on above: Non- GFR Calc Platelets bldOrdered By: Altaf Villa on 09-19-2023 Platelets (Bld) [#/Vol] 442 10*3/uL 150-450 [facility] Protein Test strip Ql (U)Ord ered By: Altaf Villa on 09-19-2023 Protein Ql (U) 100 mg/dl Negative [facility] Serum or plasma calcium yunior urement (mass/volume)Ordered By: Altaf Villa on 09-19-2023 Calcium [Mass/Vol] 8.4 mg/dL 8.5-10.1 [facility] Serum or plasma creatinine m easurement (mass/volume)Ordered By: Altaf Villa on 09-19-2023 Creatinine [Mass/Vol] 2.88 mg/dL 0.55-1.02 [facility] Comment on above: The validity of the calculated GFR & GFRAA in patients over 70 years has not been determined. Clinical correlation is essential. Serum or plasma urea nitroge n measurement (mass/volume)Ordered By: Altaf Villa on 09-19-2023 Urea nitrogen [Mass/Vol] 23 mg/dL 7-18 [facility] Squamous epithelial cells de tection in urine sediment by light microscopyOrdered By: Altaf Villa on 09-19-2023 Epithelial cells.squamous LM Ql (Urine sed) 0 SEEN /hpf 5-10 [facility] Thin prep Papanicolaou smear with manual screeningOrdered By: Altaf Villa on 09-19-2023 Thin prep Papanicolaou smear with manual screening 10 5-15 [facility] Urine blood detectionOrdered By: Altaf Villa on 09-19-2023 RBC Ql (U) 150 /ul Negative [facility] RBC Ql (U) 0 SEEN /hpf 0-5 [facility] Urine clarityOrdered By: Altaf Villa on 09-19-2023 Clarity (U) Cloudy Clear [facility] Urine color determinationOrd ered By: Altaf Villa on 09-19-2023 Color (U) Yellow Yellow [facility] Urine glucose detectionOrder ed By: Altaf Villa on 09-19-2023 Glucose Ql (U) Normal mg/dl Normal [facility] Urine leukocyte esterase det ection by dipstickOrdered By: Altaf Villa on 09-19-2023 Leukocyte esterase Test strip Ql (U) 500 /ul Negative [facility] Urine pHOrdered By: Altaf avalos on 09-19-2023 pH (U) 6.0 [pH] 5.0 - 8.0 [facility] Urine sediment bacteria coun t by microscopy (number/high power field)Ordered By: Altaf Villa on 09-19-2023 Bacteria LM.HPF (Urine sed) [#/Area] 0 /[HPF] None Seen [facility] Urine specific gravity measu rementOrdered By: Altaf Villa on 09-19-2023 Specific gravity (U) [Rel density] 1.015 1.002-1.03 0 [facility] Urobilinogen Auto test strip Ql (U)Ordered By: Altaf Villa on 09-19-2023 Urobilinogen Ql (U) Normal mg/dl Normal [facility] Gram stain for investigation of transfusion reactionOrdered By: Gerardo García on 08-17-2023 Microscopic observation Gram stain Nom (Unsp spec) [facility] Microscopic observation Gram stain Nom (Unsp spec) [facility] No Panel InformationOrdered By: Gerardo García on 08-17-2023 Miscellaneous Culture No growth aerobically. [facility] No growth aerobically. [facility] Miscellaneous Culture No growth aerobically. [facility] Absolute lymphocyte countOrd ered By: Angela Sorto on 08-14-2023 Lymphocytes Auto (Unsp spec) [#/Vol] 6.82 10*3/uL 0.83-4.51 [facility] Basophil percentageOrdered B y: Angela Sorto on 08-14-2023 Basophil percentage 82 mg/dL 74-106 [facility] Basophil percentage 7.2 g/dL 6.4-8.2 [facility] Basophil percentage 0.50 mg/dL 0.20-1.00 [facility] Basophil percentage 157 mg/dL <200 [facility] Basophil percentage 148 mg/dL <199 [facility] Basophil percentage 142 mmol/L 136-145 [facility] Basophil percentage 3.5 mmol/L 3.5-5.1 [facility] Basophil percentage 109 mmol/L 98-107 [facility] Basophils (Bld) [#/Vol] 12.0 10*3/uL 4.4-11.0 [facility] Basophils (Bld) [#/Vol] 4.1 10*3/uL 2.0-7.7 [facility] Basophils/100 WBC (Bld) 0.6 % 0-1 [facility] Basophils/100 WBC (Bld) 33.7 % 47-70 [facility] Basophils/100 WBC (Bld) 3.0 % 0-5 [facility] Bilirubin [Mass/Vol] 0.50 mg/dL 0.20-1.00 [facility] Comment on above: For patients on eltr ombopag therapy, use of Dimension [place] TBIL is not recommended. Chloride [Moles/Vol] 109 mmol/L 98-107 [facility] Cholesterol [Mass/Vol] 157 mg/dL <200 [facility] Comment on above: <200 mg/dL Desirable 200-240 mg/dL Borderline >240 mg/dL High Risk Eosinophils/100 WBC (Bld) 3.0 % 0-5 [facility] Glucose [Mass/Vol] 82 mg/dL 74-106 [facility] Neutrophils (Bld) [#/Vol] 4.1 10*3/uL 2.0-7.7 [facility] Neutrophils/100 WBC (Bld) 33.7 % 47-70 [facility] Potassium [Moles/Vol] 3.5 mmol/L 3.5-5.1 [facility] Protein [Mass/Vol] 7.2 g/dL 6.4-8.2 [facility] Sodium [Moles/Vol] 142 mmol/L 136-145 [facility] Triglyceride [Mass/Vol] 148 mg/dL <199 [facility] Comment on above: The drugs N-Acetylcy steine and Metamizole may falsely depress this assay.Serum Triglycerides Reference Interval Normal <150 mg/dL Borderline high 150 - 199 mg/dL High 200 - 499 mg/dL Very High > or = 500 mg/dL WBC (Bld) [#/Vol] 12.0 10*3/uL 4.4-11.0 [facility] Blood erythrocytes count (nu mber/volume)Ordered By: Angela Sorto on 08-14-2023 RBC (Bld) [#/Vol] 3.76 10*6/uL 4.2-5.4 [facility] Blood hemoglobin measurement (mass/volume)Ordered By: Angela Sorto on 08-14-2023 Hemoglobin (Bld) [Mass/Vol] 12.2 g/dL 12.0-15.0 [facility] Blood lymphocytes/100 leukoc ytesOrdered By: Angela Sorto on 08-14-2023 Lymphocytes/100 WBC (Bld) 56.5 % 19-41 [facility] Blood manual differential co mment interpretation (narrative result)Ordered By: Angela Sorto on 08-14-2023 Manual differential comment Pollo (Bld) [Interp] SCANNED [facility] Comment on above: LYMPHOCYTOSIS NOTED Blood monocytes/100 leukocyt esOrdered By: Angela Sorto on 08-14-2023 Monocytes/100 WBC (Bld) 5.5 % 0-10 [facility] Blood platelet mean volumeOr dered By: Angela Sorto on 08-14-2023 Platelet mean volume (Bld) [Entitic vol] 10.4 fL 6.2-12.0 [facility] Determination of erythrocyte mean corpuscular volume (MCV)Ordered By: Angela Sorto on 08-14-2023 MCV (RBC) [Entitic vol] 100.0 fL 81-99 [facility] Hematocrit Auto (Bld) [Volum e fraction]Ordered By: Angela Sorto on 08-14-2023 Hematocrit (Bld) [Volume fraction] 37.6 % 37-47 [facility] - Chemistry and C hemistry - challengeOrdered By: Angela Sorto on 08-14-2023 ALP [Catalytic activity/Vol] 74 U/L 45-117 [facility] ALT [Catalytic activity/Vol] 12 U/L 13-56 [facility] CO2 [Moles/Vol] 26.0 mmol/L 21.0-32.0 [facility] Globulin (S) [Mass/Vol] 5.0 g/dL 2.2-4.2 [facility] Urea nitrogen/Creatinine [Mass ratio] 5.4 mg/mg 10-20 [facility] - Hematology and Cell countsOrdered By: Angela Sorto on 08-14-2023 Erythrocyte distribution width (RBC) [Entitic vol] 55.0 fL 35.1-43.9 [facility] Erythrocyte distribution width (RBC) [Ratio] 15.0 % 11.6-14.6 [facility] Immature granulocytes/100 WBC (Bld) 0.700 % 0.0-0.9 [facility] Comment on above: IG% - Immature Granu locytes (promyelocytes, myelocytes and metamyelocytes) > 1% indicates that a LEFT SHIFT is Present. MCH (RBC) [Entitic mass] 32.4 pg 27.0-32.0 [facility] Nucleated RBC/100 WBC (Bld) [Ratio] 0.2 % 0-5 [facility] MCHC Auto (RBC) [Mass/Vol]Or dered By: Angela Sorto on 08-14-2023 MCHC (RBC) [Mass/Vol] 32.4 g/dL 32-36 [facility] No Panel InformationOrdered By: Angela Sorto on 08-14-2023 Estimated GFR (MDRD) Amer 39 mL/min >60 [facility] Comment on above: GFR Calc Estimated GFR (MDRD) Non-Af Amer 32 mL/min >60 [facility] Comment on above: Non- GFR Calc Thyroid Stimulating Hormone (TSH) 3.85 uIU/mL 0.358-3.74 [facility] 32.4 pg 27.0-32.0 [facility] 15.0 % 11.6-14.6 [facility] 55.0 fl 35.1-43.9 [facility] 0.700 % 0.0-0.9 [facility] 0.2 % 0-5 [facility] 32 mL/min >60 [facility] 39 mL/min >60 [facility] 5.4 RATIO 10-20 [facility] 5.0 g/dL 2.2-4.2 [facility] 74 U/L 45-117 [facility] 12 U/L 13-56 [facility] 26.0 mmol/L 21.0-32.0 [facility] 3.85 uIU/mL 0.358-3.74 [facility] Platelets bldOrdered By: Jessica Sorto on 08-14-2023 Platelets (Bld) [#/Vol] 373 10*3/uL 150-450 [facility] Serum or plasma albumin yunior urement (mass/volume)Ordered By: Angela Sorto on 08-14-2023 Albumin [Mass/Vol] 2.2 g/dL 3.2-5.0 [facility] Serum or plasma albumin/glob ulin mass ratioOrdered By: Angela Sorto on 08-14-2023 Albumin/Globulin [Mass ratio] 0.4 {ratio} 0.9-2.4 [facility] Serum or plasma calcium yunior urement (mass/volume)Ordered By: Angela Sorto on 08-14-2023 Calcium [Mass/Vol] 7.9 mg/dL 8.5-10.1 [facility] Serum or plasma cholesterol in HDL measurement (mass/volume)Ordered By: Angela Sorto on 08-14-2023 Cholesterol in HDL [Mass/Vol] 36 mg/dL >40 [facility] Comment on above: The drugs N-Acetylcy steine and Metamizole may falsely depress this assay. Reference Range HDL <40 mg/dL Low HDL Cholesterol HDL >or= 60 mg/dL High HDL Cholesterol Serum or plasma cholesterol in VLDL measurement (mass/volume)Ordered By: Angela Sorto on 08-14-2023 Cholesterol in VLDL [Mass/Vol] 30 mg/dL 5-40 [facility] Serum or plasma creatinine m easurement (mass/volume)Ordered By: Angela Sorto on 08-14-2023 Creatinine [Mass/Vol] 1.66 mg/dL 0.55-1.02 [facility] Comment on above: The validity of the calculated GFR & GFRAA in patients over 70 years has not been determined. Clinical correlation is essential. Serum or plasma low density lipoprotein (LDL) cholesterol measurement (mass/volume)Ordered By: Angela Sorto on 08-14-2023 Cholesterol in LDL [Mass/Vol] 91 mg/dL 0-130 [facility] Serum or plasma urea nitroge n measurement (mass/volume)Ordered By: Angela Sorto on 08-14-2023 Urea nitrogen [Mass/Vol] 9 mg/dL 7-18 [facility] Thin prep Papanicolaou smear with manual screeningOrdered By: Angela oSrto on 08-14-2023 Thin prep Papanicolaou smear with manual screening 11 U/L 15-37 [facility] Thin prep Papanicolaou smear with manual screening 7 5-15 [facility] No Panel InformationOrdered By: Luz Maria Matthews on 08-10-2023 Parathyroid Hormone (Intact) 90.9 pg/mL 18.4-80.1 [facility] 90.9 pg/mL 18.4-80.1 [facility] No Panel InformationOrdered By: Angela Sorto on 08-10-2023 Vitamin D 25-Hydroxy 66.9 ng/mL [facility] Comment on above: Vitamin D 25(OH) Sta tus Range Deficiency <20 ng/mL (50nmol/L) Insufficiency 20 - 30 ng/mL (50 - 75 nmol/L) Sufficiency 30 - 100 ng/mL (75 - 250 nmol/L) Toxicity >100 ng/mL (>250 nmol/L) 66.9 ng/mL [facility] Absolute lymphocyte countOrd ered By: John Light on 08-07-2023 Lymphocytes Auto (Unsp spec) [#/Vol] 4.81 10*3/uL 0.83-4.51 [facility] Basophil percentageOrdered B y: John Light on 08-07-2023 Basophil percentage 96 mg/dL 74-106 [facility] Basophil percentage 141 mmol/L 136-145 [facility] Basophil percentage 3.3 mmol/L 3.5-5.1 [facility] Basophil percentage 114 mmol/L 98-107 [facility] Basophils (Bld) [#/Vol] 10.0 10*3/uL 4.4-11.0 [facility] Basophils (Bld) [#/Vol] 4.3 10*3/uL 2.0-7.7 [facility] Basophils/100 WBC (Bld) 0.6 % 0-1 [facility] Basophils/100 WBC (Bld) 43.0 % 47-70 [facility] Basophils/100 WBC (Bld) 2.0 % 0-5 [facility] Chloride [Moles/Vol] 114 mmol/L 98-107 [facility] Eosinophils/100 WBC (Bld) 2.0 % 0-5 [facility] Glucose [Mass/Vol] 96 mg/dL 74-106 [facility] Neutrophils (Bld) [#/Vol] 4.3 10*3/uL 2.0-7.7 [facility] Neutrophils/100 WBC (Bld) 43.0 % 47-70 [facility] Potassium [Moles/Vol] 3.3 mmol/L 3.5-5.1 [facility] Sodium [Moles/Vol] 141 mmol/L 136-145 [facility] WBC (Bld) [#/Vol] 10.0 10*3/uL 4.4-11.0 [facility] Blood erythrocytes count (nu mber/volume)Ordered By: John Light on 08-07-2023 RBC (Bld) [#/Vol] 3.68 10*6/uL 4.2-5.4 [facility] Blood hemoglobin measurement (mass/volume)Ordered By: John Light on 08-07-2023 Hemoglobin (Bld) [Mass/Vol] 11.7 g/dL 12.0-15.0 [facility] Blood lymphocytes/100 leukoc ytesOrdered By: John Light on 08-07-2023 Lymphocytes/100 WBC (Bld) 48.0 % 19-41 [facility] Blood monocytes/100 leukocyt esOrdered By: John Light on 08-07-2023 Monocytes/100 WBC (Bld) 5.9 % 0-10 [facility] Blood platelet mean volumeOr dered By: John Light on 08-07-2023 Platelet mean volume (Bld) [Entitic vol] 10.0 fL 6.2-12.0 [facility] Determination of erythrocyte mean corpuscular volume (MCV)Ordered By: John Light on 08-07-2023 MCV (RBC) [Entitic vol] 98.9 fL 81-99 [facility] Hematocrit Auto (Bld) [Volum e fraction]Ordered By: John Light on 08-07-2023 Hematocrit (Bld) [Volume fraction] 36.4 % 37-47 [facility] - Chemistry and C hemistry - challengeOrdered By: John Light on 08-07-2023 CO2 [Moles/Vol] 20.0 mmol/L 21.0-32.0 [facility] Urea nitrogen/Creatinine [Mass ratio] 8.5 mg/mg 10-20 [facility] - Hematology and Cell countsOrdered By: John Light on 08-07-2023 Erythrocyte distribution width (RBC) [Entitic vol] 53.8 fL 35.1-43.9 [facility] Erythrocyte distribution width (RBC) [Ratio] 14.6 % 11.6-14.6 [facility] Immature granulocytes/100 WBC (Bld) 0.500 % 0.0-0.9 [facility] Comment on above: IG% - Immature Granu locytes (promyelocytes, myelocytes and metamyelocytes) > 1% indicates that a LEFT SHIFT is Present. MCH (RBC) [Entitic mass] 31.8 pg 27.0-32.0 [facility] Nucleated RBC/100 WBC (Bld) [Ratio] 0 % 0-5 [facility] MCHC Auto (RBC) [Mass/Vol]Or dered By: John Light on 08-07-2023 MCHC (RBC) [Mass/Vol] 32.1 g/dL 32-36 [facility] No Panel InformationOrdered By: John Light on 08-07-2023 Estimated Creatinine Clearance Calc 25.03 ml/min [facility] Estimated GFR (MDRD) Amer 30 mL/min >60 [facility] Comment on above: GFR Calc Estimated GFR (MDRD) Non-Af Amer 25 mL/min >60 [facility] Comment on above: Non- GFR Calc 31.8 pg 27.0-32.0 [facility] 14.6 % 11.6-14.6 [facility] 53.8 fl 35.1-43.9 [facility] 0.500 % 0.0-0.9 [facility] 0 % 0-5 [facility] 25 mL/min >60 [facility] 30 mL/min >60 [facility] 25.03 ml/min [facility] 8.5 RATIO 10-20 [facility] 20.0 mmol/L 21.0-32.0 [facility] Platelets bldOrdered By: Rabia Light on 08-07-2023 Platelets (Bld) [#/Vol] 271 10*3/uL 150-450 [facility] Serum or plasma calcium yunior urement (mass/volume)Ordered By: John Light on 08-07-2023 Calcium [Mass/Vol] 7.5 mg/dL 8.5-10.1 [facility] Serum or plasma creatinine m easurement (mass/volume)Ordered By: John Light on 08-07-2023 Creatinine [Mass/Vol] 2.11 mg/dL 0.55-1.02 [facility] Comment on above: The validity of the calculated GFR & GFRAA in patients over 70 years has not been determined. Clinical correlation is essential. Serum or plasma urea nitroge n measurement (mass/volume)Ordered By: John Light on 08-07-2023 Urea nitrogen [Mass/Vol] 18 mg/dL 7-18 [facility] Thin prep Papanicolaou smear with manual screeningOrdered By: John Light on 08-07-2023 Thin prep Papanicolaou smear with manual screening 7 5-15 [facility] Basophil percentageOrdered B y: Holly Echeverria on 08-03-2023 Basophil percentage 6.4 g/dL 6.4-8.2 [facility] Basophil percentage 1.00 mg/dL 0.20-1.00 [facility] Bilirubin [Mass/Vol] 1.00 mg/dL 0.20-1.00 [facility] Comment on above: For patients on eltr ombopag therapy, use of Dimension [place] TBIL is not recommended. Protein [Mass/Vol] 6.4 g/dL 6.4-8.2 [facility] Laboratory - Chemistry and C hemistry - challengeOrdered By: Holly Echeverria on 08-03-2023 ALP [Catalytic activity/Vol] 90 U/L [facility] ALT [Catalytic activity/Vol] 10 U/L [facility] Globulin (S) [Mass/Vol] 4.3 g/dL 2.2-4.2 [facility] No Panel InformationOrdered By: Holly Echeverria on 08-03-2023 4.3 g/dL 2.2-4.2 [facility] 90 U/L [facility] 10 U/L [facility] Serum or plasma albumin yunior urement (mass/volume)Ordered By: Holly Echeverria on 08-03-2023 Albumin [Mass/Vol] 2.1 g/dL 3.2-5.0 [facility] Serum or plasma albumin/glob ulin mass ratioOrdered By: Holly Echeverria on 08-03-2023 Albumin/Globulin [Mass ratio] 0.5 {ratio} 0.9-2.4 [facility] Thin prep Papanicolaou smear with manual screeningOrdered By: Holly Echeverria on 08-03-2023 Thin prep Papanicolaou smear with manual screening 13 U/L 15 [facility] Bacteria identified Cx Nom ( U)Ordered By: Brian Mckee on 08-02-2023 Culture, urine Pseudomonas aeruginosa [facility] Basophil percentageOrdered B y: Brian Mckee on 08-02-2023 Basophil percentage 1.6 mmol/L 0.4-2.0 [facility] Lactate [Moles/Vol] 1.6 mmol/L 0.4-2.0 [facility] Basophil percentage >100 SEEN /hpf 0-5 [facility] Comment on above: Microscopic field is filled. Other elements may be obscured. Bilirubin Test strip Ql (U)O rdered By: Brian Mckee on 08-02-2023 Bilirubin Ql (U) Negative Negative [facility] Blood manual differential co mment interpretation (narrative result)Ordered By: Brian Mckee on 08-02-2023 Manual differential comment Pollo (Bld) [Interp] SCANNED [facility] COVID-19 virus antigen assay Ordered By: Brian Mckee on 08-02-2023 SARS-CoV-2 (COVID-19) Ag IA.rapid Ql (Resp) [facility] SARS-CoV-2 (COVID-19) Ag IA.rapid Ql (Resp) [facility] Culture, urineOrdered By: Viktor Mckee on 08-02-2023 Bacteria identified Cx Nom (U) Pseudomonas aeruginosa [facility] Bacteria identified Cx Nom (U) Pseudomonas aeruginosa [facility] Ketones Test strip Ql (U)Ord ered By: Brian Mckee on 08-02-2023 Ketones Ql (U) Negative Negative [facility] Laboratory - Chemistry and C hemistry - challengeOrdered By: Brian Mckee on 08-02-2023 Lipase [Catalytic activity/Vol] 26 U/L 13-75 [facility] Comment on above: Please note:LIPASE r evised reference range effective 23. New Lipase methodology. Expected to produce lower values than the previous assay method. NEW Reference Range: 13 - 75 U/L Laboratory - Microbiology an d Antimicrobial susceptibilityOrdered By: Brian Mckee on 08-02-2023 Bacteria identified Cx Nom (Bld) No growth in 5 days. [facility] Bacteria identified Cx Nom (Bld) No growth in 5 days. [facility] Mucus LM Ql (Urine sed)Order ed By: Brian Mckee on 08-02-2023 Mucus Ql (Urine sed) 0 SEEN /hpf [facility] Nitrite Test strip Ql (U)Ord ered By: Brian Mckee on 08-02-2023 Nitrite Ql (U) Positive Negative [facility] No Panel InformationOrdered By: Brian Mckee on 08-02-2023 No growth in 5 days. [facility] 26 U/L -75 [facility] Protein Test strip Ql (U)Ord ered By: Brian Mckee on 08-02-2023 Protein Ql (U) 100 mg/dl Negative [facility] Review by pathologistOrdered By: Brian Mckee on 08-02-2023 Pathologist review Pollo (Unsp spec) [Interp] Reviewed [facility] Comment on above: Previous reported re sult: March cari Edited by: RGOOD on 08/06/23:0958Neutrophilic leukocytosis.Clinical correlation necessary.Nikolas Clark M.D. 08/06/23 AMENDED REPORT 08/06/23 0958 PATH REV previously reported as: May foll Squamous epithelial cells de tection in urine sediment by light microscopyOrdered By: Brian Mckee on 08-02-2023 Epithelial cells.squamous LM Ql (Urine sed) 0 SEEN /hpf 5-10 [facility] Urine blood detectionOrdered By: Brian Mckee on 08-02-2023 RBC Ql (U) 150 /ul Negative [facility] RBC Ql (U) 0-5 SEEN /hpf 0-5 [facility] Urine clarityOrdered By: Eladio Mckee on 08-02-2023 Clarity (U) Cloudy Clear [facility] Urine color determinationOrd ered By: Brian Mckee on 08-02-2023 Color (U) Yellow Yellow [facility] Urine glucose detectionOrder ed By: Brian Mckee on 08-02-2023 Glucose Ql (U) Normal mg/dl Normal [facility] Urine leukocyte esterase det ection by dipstickOrdered By: Brian Mckee on 08-02-2023 Leukocyte esterase Test strip Ql (U) 500 /ul Negative [facility] Urine pHOrdered By: Brian delarosa on 08-02-2023 pH (U) 6.0 [pH] 5.0 - 8.0 [facility] Urine sediment bacteria coun t by microscopy (number/high power field)Ordered By: Brian Mckee on 08-02-2023 Bacteria LM.HPF (Urine sed) [#/Area] 2 /[HPF] None Seen [facility] Urine specific gravity measu rementOrdered By: Brian Mckee on 08-02-2023 Specific gravity (U) [Rel density] 1.010 1.002-1.03 0 [facility] Urobilinogen Auto test strip Ql (U)Ordered By: Brian Mckee on 08-02-2023 Urobilinogen Ql (U) Normal mg/dl Normal [facility] Laboratory - Microbiology an d Antimicrobial susceptibilityOrdered By: Gerardo García on 07-20-2023 SARS-CoV-2 (COVID-19) RNA BOBBI+probe Ql (Unsp spec) [facility] SARS-CoV-2 (COVID-19) RNA BOBBI+probe Ql (Unsp spec) [facility] No Panel InformationOrdered By: Gerardo García on 07-20-2023 Influenza Types A,B Direct FA (LEVI) [facility] Influenza Types A,B Direct FA (LEVI) [facility] RSV Ag EIAOrdered By: Gerardo guerra on 07-20-2023 RSV Ag Immune stain Ql (Tiss) [facility] RSV Ag Immune stain Ql (Tiss) [facility] Gram stain for investigation of transfusion reactionOrdered By: Gerardo García on 06-19-2023 Microscopic observation Gram stain Nom (Unsp spec) [facility] No Panel InformationOrdered By: Gerardo García on 06-19-2023 Methicillin-Resist S.aureus DNA PCR Negative Negative [facility] Negative Negative [facility] Routine wound cultureOrdered By: Gerardo García on 06-19-2023 Bacteria identified Cx Nom (Wound) No growth aerobically. [facility] Staphylococcus aureus DNA de tection by probe and target amplification methodOrdered By: Gerardo García on 06-19-2023 S. aureus DNA BOBBI+probe Ql (Unsp spec) Negative Negative [facility] Basophil percentageOrdered B y: Luz Maria Matthews on 06-11-2023 Basophil percentage 3.6 mg/dL 2.5-4.9 [facility] Basophil percentage 98 mg/dL 74-106 [facility] Basophil percentage 136 mmol/L 136-145 [facility] Basophil percentage 4.1 mmol/L 3.5-5.1 [facility] Basophil percentage 105 mmol/L 98-107 [facility] Chloride [Moles/Vol] 105 mmol/L 98-107 [facility] Glucose [Mass/Vol] 98 mg/dL 74-106 [facility] Potassium [Moles/Vol] 4.1 mmol/L 3.5-5.1 [facility] Sodium [Moles/Vol] 136 mmol/L 136-145 [facility] Laboratory - Chemistry and C hemistry - challengeOrdered By: Luz Maria Matthews on 06-11-2023 CO2 [Moles/Vol] 26.0 mmol/L 21.0-32.0 [facility] Urea nitrogen/Creatinine [Mass ratio] 8.2 mg/mg 10-20 [facility] No Panel InformationOrdered By: Luz Maria Matthews on 06-11-2023 Estimated GFR (MDRD) Amer 38 mL/min >60 [facility] Comment on above: GFR Calc Estimated GFR (MDRD) Non-Af Amer 31 mL/min >60 [facility] Comment on above: Non- GFR Calc Parathyroid Hormone (Intact) 99.8 pg/mL 18.4-80.1 [facility] 31 mL/min >60 [facility] 38 mL/min >60 [facility] 8.2 RATIO 10-20 [facility] 26.0 mmol/L 21.0-32.0 [facility] 99.8 pg/mL 18.4-80.1 [facility] Serum or plasma albumin yunior urement (mass/volume)Ordered By: Luz Maria Matthews on 06-11-2023 Albumin [Mass/Vol] 2.7 g/dL 3.2-5.0 [facility] Serum or plasma calcium yunior urement (mass/volume)Ordered By: Luz Maria Matthews on 06-11-2023 Calcium [Mass/Vol] 8.3 mg/dL 8.5-10.1 [facility] Serum or plasma creatinine m easurement (mass/volume)Ordered By: Luz Maria Matthews on 06-11-2023 Creatinine [Mass/Vol] 1.71 mg/dL 0.55-1.02 [facility] Comment on above: The validity of the calculated GFR & GFRAA in patients over 70 years has not been determined. Clinical correlation is essential. Serum or plasma urea nitroge n measurement (mass/volume)Ordered By: Luz Maria Matthews on 06-11-2023 Urea nitrogen [Mass/Vol] 14 mg/dL -18 [facility] Culture, urineOrdered By: Mckenna Strickland on 05-28-2023 Bacteria identified Cx Nom (U) Pseudomonas aeruginosa [facility] Bacteria identified Cx Nom (U) Klebsiella pneumoniae sp pneum [facility] Culture, urineOrdered By: Dr Javy García on 05-15-2023 Bacteria identified Cx Nom (U) Pseudomonas aeruginosa [facility] COVID-19 virus antigen assay Ordered By: Dr. García on 05-14-2023 SARS-CoV-2 (COVID-19) Ag IA.rapid Ql (Resp) Not detected Not Detect [facility] Comment on above: Normal Reference Ran ge: Not DetectedMethod:(RT-PCR) real-time reverse transcriptase PCRLuminex DAILY Instrument*The Food and Drug Administration (FDA) has issued an Emergency Use Authorization (EAU) for the DAILY SARS-CoV-2 Assay for the rapid detection of the virus that causes COVID-19. This test has been validated, but the FDAs independent review of this validation is pending.*Negative results do not preclude infection and should not be used as the sole basis for treatment or patient management. Optimum specimen types and timing for peak viral levels during infections caused by SARS-CoV-2 have not been determined. Collection of multiple specimens from the same patient may be necessary to detect the virus. The possibility of a false negative result should be considered if the patient has clinical presentation or has had recent exposure. No Panel InformationOrdered By: Gerardo García on 05-14-2023 Influenza Types A,B Direct FA (LEVI) [facility] No Panel InformationOrdered By: Dr. García on 05-14-2023 Influenza Types A,B Direct FA (LEVI) [facility] RSV Ag EIAOrdered By: Gerardo guerra on 05-14-2023 RSV Ag Immune stain Ql (Tiss) [facility] RSV Ag EIAOrdered By: Dr. Saúl guerra on 05-14-2023 RSV Ag Immune stain Ql (Tiss) [facility] Culture, urineOrdered By: Dr Javy Strickland on 05-12-2023 Bacteria identified Cx Nom (U) Pseudomonas aeruginosa [facility] Culture, urineOrdered By: Lenny García on 05-11-2023 Bacteria identified Cx Nom (U) Pseudomonas aeruginosa [facility] Culture, urineOrdered By: Mckenna Strickland on 05-10-2023 Bacteria identified Cx Nom (U) Pseudomonas aeruginosa [facility] Absolute lymphocyte countOrd ered By: Dr. García on 04-03-2023 Lymphocytes Auto (Unsp spec) [#/Vol] 8.29 10*3/uL 0.83-4.51 [facility] Basophil percentageOrdered B y: Dr. García on 04-03-2023 Basophils/100 WBC (Bld) 0.6 % 0-1 [facility] Bilirubin [Mass/Vol] 0.90 mg/dL 0.20-1.00 [facility] Comment on above: For patients on eltr ombopag therapy, use of Dimension [place] TBIL is not recommended. Chloride [Moles/Vol] 107 mmol/L 98-107 [facility] Eosinophils/100 WBC (Bld) 1.0 % 0-5 [facility] Glucose [Mass/Vol] 113 mg/dL 74-106 [facility] Comment on above: Fasting Glucose resu lt from 100 to 125 mg/dL suggests IMPAIRED HOMEOSTASIS per A.D.A. criteria. Neutrophils (Bld) [#/Vol] 6.3 10*3/uL 2.0-7.7 [facility] Neutrophils/100 WBC (Bld) 39.4 % 47-70 [facility] Potassium [Moles/Vol] 4.1 mmol/L 3.5-5.1 [facility] Protein [Mass/Vol] 7.9 g/dL 6.4-8.2 [facility] Sodium [Moles/Vol] 139 mmol/L 136-145 [facility] WBC (Bld) [#/Vol] 16.0 10*3/uL 4.4-11.0 [facility] Bilirubin Test strip Ql (U)O rdered By: Dr. García on 04-03-2023 Bilirubin Ql (U) Negative Negative [facility] Blood erythrocytes count (nu mber/volume)Ordered By: Dr. García on 04-03-2023 RBC (Bld) [#/Vol] 4.69 10*6/uL 4.2-5.4 [facility] Blood hemoglobin measurement (mass/volume)Ordered By: Dr. García on 04-03-2023 Hemoglobin (Bld) [Mass/Vol] 14.9 g/dL 12.0-15.0 [facility] Blood lymphocytes/100 leukoc ytesOrdered By: Dr. García on 04-03-2023 Lymphocytes/100 WBC (Bld) 51.8 % 19-41 [facility] Blood monocytes/100 leukocyt esOrdered By: Dr. García on 04-03-2023 Monocytes/100 WBC (Bld) 6.9 % 0-10 [facility] Blood platelet mean volumeOr dered By: Dr. García on 04-03-2023 Platelet mean volume (Bld) [Entitic vol] 10.1 fL 6.2-12.0 [facility] Determination of erythrocyte mean corpuscular volume (MCV)Ordered By: Dr. García on 04-03-2023 MCV (RBC) [Entitic vol] 97.9 fL 81-99 [facility] Hematocrit Auto (Bld) [Volum e fraction]Ordered By: Dr. García on 04-03-2023 Hematocrit (Bld) [Volume fraction] 45.9 % 37-47 [facility] Ketones Test strip Ql (U)Ord ered By: Dr. García on 04-03-2023 Ketones Ql (U) Negative Negative [facility] Laboratory - Chemistry and C hemistry - challengeOrdered By: Dr. García on 04-03-2023 ALP [Catalytic activity/Vol] 94 U/L 45-117 [facility] ALT [Catalytic activity/Vol] 15 U/L 13-56 [facility] CO2 [Moles/Vol] 25.0 mmol/L 21.0-32.0 [facility] Globulin (S) [Mass/Vol] 5.2 g/dL 2.2-4.2 [facility] Urea nitrogen/Creatinine [Mass ratio] 8.9 mg/mg 10-20 [facility] Laboratory - Hematology and Cell countsOrdered By: Dr. García on 04-03-2023 Erythrocyte distribution width (RBC) [Entitic vol] 52.1 fL 35.1-43.9 [facility] Erythrocyte distribution width (RBC) [Ratio] 14.5 % 11.6-14.6 [facility] Immature granulocytes/100 WBC (Bld) 0.300 % 0.0-0.9 [facility] Comment on above: IG% - Immature Granu locytes (promyelocytes, myelocytes and metamyelocytes) > 1% indicates that a LEFT SHIFT is Present. MCH (RBC) [Entitic mass] 31.8 pg 27.0-32.0 [facility] Nucleated RBC/100 WBC (Bld) [Ratio] 0 % 0-[facility] ([facility] [Mass/Vol]Or dered By: Dr. García on 04-03-2023 MCHC (RBC) [Mass/Vol] 32.5 g/dL 32-36 [facility] Nitrite Test strip Ql (U)Ord ered By: Dr. García on 04-03-2023 Nitrite Ql (U) Positive Negative [facility] No Panel InformationOrdered By: Dr. García on 04-03-2023 Estimated GFR (MDRD) Amer 31 mL/min >60 [facility] Comment on above: GFR Calc Estimated GFR (MDRD) Non-Af Amer 26 mL/min >60 [facility] Comment on above: Non- GFR Calc Reactive Lymphocytes 1+ [facility] Platelets bldOrdered By: Dr. García on 04-03-2023 Platelets (Bld) [#/Vol] 340 10*3/uL 150-450 [facility] Protein Test strip Ql (U)Ord ered By: Dr. García on 04-03-2023 Protein Ql (U) 100 mg/dl Negative [facility] Serum or plasma albumin yunior urement (mass/volume)Ordered By: Dr. García on 04-03-2023 Albumin [Mass/Vol] 2.7 g/dL 3.2-5.0 [facility] Serum or plasma albumin/glob ulin mass ratioOrdered By: Dr. García on 04-03-2023 Albumin/Globulin [Mass ratio] 0.5 {ratio} 0.9-2.4 [facility] Serum or plasma calcium yunior urement (mass/volume)Ordered By: Dr. García on 04-03-2023 Calcium [Mass/Vol] 9.2 mg/dL 8.5-10.1 [facility] Serum or plasma creatinine m easurement (mass/volume)Ordered By: Dr. García on 04-03-2023 Creatinine [Mass/Vol] 2.02 mg/dL 0.55-1.02 [facility] Comment on above: The validity of the calculated GFR & GFRAA in patients over 70 years has not been determined. Clinical correlation is essential. Serum or plasma urea nitroge n measurement (mass/volume)Ordered By: Dr. García on 04-03-2023 Urea nitrogen [Mass/Vol] 18 mg/dL 7-18 [facility] Thin prep Papanicolaou smear with manual screeningOrdered By: Dr. García on 04-03-2023 Thin prep Papanicolaou smear with manual screening 16 U/L 15-37 [facility] Thin prep Papanicolaou smear with manual screening 7 5-15 [facility] Urine blood detectionOrdered By: Dr. García on 04-03-2023 RBC Ql (U) 150 /ul Negative [facility] Urine clarityOrdered By: Dr. García on 04-03-2023 Clarity (U) Cloudy Clear [facility] Urine color determinationOrd ered By: Dr. García on 04-03-2023 Color (U) Yellow Yellow [facility] Urine glucose detectionOrder ed By: Dr. García on 04-03-2023 Glucose Ql (U) Normal mg/dl Normal [facility] Urine leukocyte esterase det ection by dipstickOrdered By: Dr. García on 04-03-2023 Leukocyte esterase Test strip Ql (U) 500 /ul Negative [facility] Urine pHOrdered By: Dr. García on 04-03-2023 pH (U) 7.0 [pH] 5.0 - 8.0 [facility] Urine specific gravity measu rementOrdered By: Dr. García on 04-03-2023 Specific gravity (U) [Rel density] 1.010 1.002-1.03 0 [facility] Urobilinogen Auto test strip Ql (U)Ordered By: Dr. García on 04-03-2023 Urobilinogen Ql (U) Normal mg/dl Normal [facility] Absolute lymphocyte countOrd ered By: Gerardo García on 01-22-2023 Lymphocytes Auto (Unsp spec) [#/Vol] 3.62 10*3/uL 0.83-4.51 [facility] Basophil percentageOrdered B y: Gerardo García on 01-22-2023 Basophils/100 WBC (Bld) 0.4 % 0-1 [facility] Bilirubin [Mass/Vol] 0.80 mg/dL 0.20-1.00 [facility] Comment on above: For patients on eltr ombopag therapy, use of Dimension [place] TBIL is not recommended. Chloride [Moles/Vol] 105 mmol/L 98-107 [facility] Cholesterol [Mass/Vol] 218 mg/dL <200 [facility] Comment on above: <200 mg/dL Desirable 200-240 mg/dL Borderline >240 mg/dL High Risk Eosinophils/100 WBC (Bld) 0.1 % 0-5 [facility] Glucose [Mass/Vol] 104 mg/dL 74-106 [facility] Comment on above: Fasting Glucose resu lt from 100 to 125 mg/dL suggests IMPAIRED HOMEOSTASIS per A.D.A. criteria. Neutrophils (Bld) [#/Vol] 11.5 10*3/uL 2.0-7.7 [facility] Neutrophils/100 WBC (Bld) 73.2 % 47-70 [facility] Potassium [Moles/Vol] 4.1 mmol/L 3.5-5.1 [facility] Protein [Mass/Vol] 7.9 g/dL 6.4-8.2 [facility] Sodium [Moles/Vol] 137 mmol/L 136-145 [facility] Triglyceride [Mass/Vol] 190 mg/dL <199 [facility] Comment on above: The drugs N-Acetylcy steine and Metamizole may falsely depress this assay.Serum Triglycerides Reference Interval Normal <150 mg/dL Borderline high 150 - 199 mg/dL High 200 - 499 mg/dL Very High > or = 500 mg/dL WBC (Bld) [#/Vol] 15.7 10*3/uL 4.4-11.0 [facility] Blood erythrocytes count (nu mber/volume)Ordered By: eGrardo García on 01-22-2023 RBC (Bld) [#/Vol] 4.61 10*6/uL 4.2-5.4 [facility] Blood hemoglobin measurement (mass/volume)Ordered By: Gerardo García on 01-22-2023 Hemoglobin (Bld) [Mass/Vol] 14.9 g/dL 12.0-15.0 [facility] Blood lymphocytes/100 leukoc ytesOrdered By: Gerardo García on 01-22-2023 Lymphocytes/100 WBC (Bld) 23.1 % 19-41 [facility] Blood monocytes/100 leukocyt esOrdered By: Gerardo García on 01-22-2023 Monocytes/100 WBC (Bld) 2.4 % 0-10 [facility] Blood platelet mean volumeOr dered By: Gerardo García on 01-22-2023 Platelet mean volume (Bld) [Entitic vol] 10.6 fL 6.2-12.0 [facility] COVID-19 virus antigen assay Ordered By: Dr. García on 01-22-2023 SARS-CoV-2 (COVID-19) Ag IA.rapid Ql (Resp) Not detected Not Detect [facility] Comment on above: Normal Reference Ran ge: Not DetectedMethod:(RT-PCR) real-time reverse transcriptase PCRLuminex Genasys Instrument*The Food and Drug Administration (FDA) has issued an Emergency Use Authorization (EAU) for the Genasys SARS-CoV-2 Assay for the rapid detection of the virus that causes COVID-19. This test has been validated, but the FDAs independent review of this validation is pending.*Negative results do not preclude infection and should not be used as the sole basis for treatment or patient management. Optimum specimen types and timing for peak viral levels during infections caused by SARS-CoV-2 have not been determined. Collection of multiple specimens from the same patient may be necessary to detect the virus. The possibility of a false negative result should be considered if the patient has clinical presentation or has had recent exposure. Determination of erythrocyte mean corpuscular volume (MCV)Ordered By: Gerardo García on 01-22-2023 MCV (RBC) [Entitic vol] 100.4 fL 81-99 [facility] Hematocrit Auto (Bld) [Volum e fraction]Ordered By: Gerardo García on 01-22-2023 Hematocrit (Bld) [Volume fraction] 46.3 % 37-47 [facility] - Chemistry and C hemistry - challengeOrdered By: Gerardo García on 01-22-2023 ALP [Catalytic activity/Vol] 89 U/L 45-117 [facility] ALT [Catalytic activity/Vol] 16 U/L 13-56 [facility] CO2 [Moles/Vol] 24.0 mmol/L 21.0-32.0 [facility] Globulin (S) [Mass/Vol] 4.7 g/dL 2.2-4.2 [facility] Urea nitrogen/Creatinine [Mass ratio] 14.8 mg/mg 10-20 [facility] - Hematology and Cell countsOrdered By: Gerardo García on 01-22-2023 Erythrocyte distribution width (RBC) [Entitic vol] 49.1 fL 35.1-43.9 [facility] Erythrocyte distribution width (RBC) [Ratio] 13.3 % 11.6-14.6 [facility] Immature granulocytes/100 WBC (Bld) 0.800 % 0.0-0.9 [facility] Comment on above: IG% - Immature Granu locytes (promyelocytes, myelocytes and metamyelocytes) > 1% indicates that a LEFT SHIFT is Present. MCH (RBC) [Entitic mass] 32.3 pg 27.0-32.0 [facility] Nucleated RBC/100 WBC (Bld) [Ratio] 0 % 0-5 [facility] MCHC Auto (RBC) [Mass/Vol]Or dered By: Gerardo García on 01-22-2023 MCHC (RBC) [Mass/Vol] 32.2 g/dL 32-36 [facility] No Panel InformationOrdered By: Gerardo García on 01-22-2023 Estimated GFR (MDRD) Amer 30 mL/min >60 [facility] Comment on above: GFR Calc Estimated GFR (MDRD) Non-Af Amer 25 mL/min >60 [facility] Comment on above: Non- GFR Calc Thyroid Stimulating Hormone (TSH) 2.47 uIU/mL 0.358-3.74 [facility] Vitamin D 25-Hydroxy 58.8 ng/mL [facility] Comment on above: Vitamin D 25(OH) Sta tus Range Deficiency <20 ng/mL (50nmol/L) Insufficiency 20 - 30 ng/mL (50 - 75 nmol/L) Sufficiency 30 - 100 ng/mL (75 - 250 nmol/L) Toxicity >100 ng/mL (>250 nmol/L) No Panel InformationOrdered By: Dr. García on 01-22-2023 Influenza Types A,B Direct FA (LEVI) [facility] Platelets bldOrdered By: Gerardo García on 01-22-2023 Platelets (Bld) [#/Vol] 353 10*3/uL 150-450 [facility] RSV Ag EIAOrdered By: Dr. Saúl guerra on 01-22-2023 RSV Ag Immune stain Ql (Tiss) [facility] Serum or plasma albumin yunior urement (mass/volume)Ordered By: Gerardo García on 01-22-2023 Albumin [Mass/Vol] 3.2 g/dL 3.2-5.0 [facility] Serum or plasma albumin/glob ulin mass ratioOrdered By: Gerardo García on 01-22-2023 Albumin/Globulin [Mass ratio] 0.7 {ratio} 0.9-2.4 [facility] Serum or plasma calcium yunior urement (mass/volume)Ordered By: Gerardo García on 01-22-2023 Calcium [Mass/Vol] 8.7 mg/dL 8.5-10.1 [facility] Serum or plasma cholesterol in HDL measurement (mass/volume)Ordered By: Gerardo García on 01-22-2023 Cholesterol in HDL [Mass/Vol] 41 mg/dL >40 [facility] Comment on above: The drugs N-Acetylcy steine and Metamizole may falsely depress this assay. Reference Range HDL <40 mg/dL Low HDL Cholesterol HDL >or= 60 mg/dL High HDL Cholesterol Serum or plasma cholesterol in VLDL measurement (mass/volume)Ordered By: Gerardo García on 01-22-2023 Cholesterol in VLDL [Mass/Vol] 38 mg/dL 5-40 [facility] Serum or plasma creatinine m easurement (mass/volume)Ordered By: Gerardo García 01-22-2023 Creatinine [Mass/Vol] 2.09 mg/dL 0.55-1.02 [facility] Comment on above: The validity of the calculated GFR & GFRAA in patients over 70 years has not been determined. Clinical correlation is essential. Serum or plasma low density lipoprotein (LDL) cholesterol measurement (mass/volume)Ordered By: Gerardo García on 01-22-2023 Cholesterol in LDL [Mass/Vol] 139 mg/dL 0-130 [facility] Serum or plasma urea nitroge n measurement (mass/volume)Ordered By: Gerardo García 01-22-2023 Urea nitrogen [Mass/Vol] 31 mg/dL 7-18 [facility] Thin prep Papanicolaou smear with manual screeningOrdered By: Gerardo García on 01-22-2023 Thin prep Papanicolaou smear with manual screening 15 U/L 15-37 [facility] Thin prep Papanicolaou smear with manual screening 8 5-15 [facility] Anaerobic cultureOrdered By: Eden Schroeder on 01-06-2023 Bacteria identified Anaer cx Nom (Unsp spec) No anaerobic bacteria isolated. [facility] Bacteria identified Cx Nom ( Wound)Ordered By: Eden Schroeder on 01-04-2023 Wound Culture Meth. resistant Stap h. aureus [facility] Culture, urineOrdered By: Dr Javy García on 01-03-2023 Bacteria identified Cx Nom (U) Mixed Gram Pos & Gram Neg Org [facility] COVID-19 virus antigen assay Ordered By: Dr. García on 01-02-2023 SARS-CoV-2 (COVID-19) Ag IA.rapid Ql (Resp) Not detected Not Detect [facility] Comment on above: Normal Reference Ran ge: Not DetectedMethod:(RT-PCR) real-time reverse transcriptase PCRLuminex Genasys Instrument*The Food and Drug Administration (FDA) has issued an Emergency Use Authorization (EAU) for the DAILY SARS-CoV-2 Assay for the rapid detection of the virus that causes COVID-19. This test has been validated, but the FDAs independent review of this validation is pending.*Negative results do not preclude infection and should not be used as the sole basis for treatment or patient management. Optimum specimen types and timing for peak viral levels during infections caused by SARS-CoV-2 have not been determined. Collection of multiple specimens from the same patient may be necessary to detect the virus. The possibility of a false negative result should be considered if the patient has clinical presentation or has had recent exposure. Gram stain for investigation of transfusion reactionOrdered By: Eden Schroeder on 01-02-2023 Microscopic observation Gram stain Nom (Unsp spec) [facility] No Panel InformationOrdered By: Dr. García on 01-02-2023 Influenza Types A,B Direct FA (LEVI) [facility] RSV Ag EIAOrdered By: Dr. Saúl guerra on 01-02-2023 RSV Ag Immune stain Ql (Tiss) [facility] Basophil percentageOrdered B y: Dr. Matthews on 12-05-2022 Basophil percentage 3.4 mg/dL 2.5-4.9 [facility] Chloride [Moles/Vol] 107 mmol/L 98-107 [facility] Glucose [Mass/Vol] 103 mg/dL 74-106 [facility] Comment on above: Fasting Glucose resu lt from 100 to 125 mg/dL suggests IMPAIRED HOMEOSTASIS per A.D.A. criteria. Potassium [Moles/Vol] 4.0 mmol/L 3.5-5.1 [facility] Sodium [Moles/Vol] 139 mmol/L 136-145 [facility] Laboratory - Chemistry and C hemistry - challengeOrdered By: Dr. Matthews on 12-05-2022 CO2 [Moles/Vol] 28.0 mmol/L 21.0-32.0 [facility] Urea nitrogen/Creatinine [Mass ratio] 8.1 mg/mg 10-20 [facility] No Panel InformationOrdered By: Dr. Matthews on 12-05-2022 Estimated GFR (MDRD) Amer 34 mL/min >60 [facility] Comment on above: GFR Calc Estimated GFR (MDRD) Non-Af Amer 28 mL/min >60 [facility] Comment on above: Non- GFR Calc Parathyroid Hormone (Intact) 159.4 pg/mL 18.4-80.1 [facility] Vitamin D 25-Hydroxy 47.4 ng/mL [facility] Comment on above: Vitamin D 25(OH) Sta tus Range Deficiency <20 ng/mL (50nmol/L) Insufficiency 20 - 30 ng/mL (50 - 75 nmol/L) Sufficiency 30 - 100 ng/mL (75 - 250 nmol/L) Toxicity >100 ng/mL (>250 nmol/L) Serum or plasma albumin yunior urement (mass/volume)Ordered By: Dr. Matthews on 12-05-2022 Albumin [Mass/Vol] 2.8 g/dL 3.2-5.0 [facility] Serum or plasma calcium yunior urement (mass/volume)Ordered By: Dr. Matthews on 12-05-2022 Calcium [Mass/Vol] 8.7 mg/dL 8.5-10.1 [facility] Serum or plasma creatinine m easurement (mass/volume)Ordered By: Dr. Matthews on 12-05-2022 Creatinine [Mass/Vol] 1.86 mg/dL 0.55-1.02 [facility] Comment on above: The validity of the calculated GFR & GFRAA in patients over 70 years has not been determined. Clinical correlation is essential. Serum or plasma urea nitroge n measurement (mass/volume)Ordered By: Dr. Matthews on 12-05-2022 Urea nitrogen [Mass/Vol] 15 mg/dL 7-18 [facility] Culture, urineOrdered By: Dr Javy Strickland on 11-01-2022 Bacteria identified Cx Nom (U) Pseudomonas aeroginosa [facility] Absolute lymphocyte countOrd ered By: Dr. García on 10-30-2022 Lymphocytes Auto (Unsp spec) [#/Vol] 8.75 10*3/uL 0.83-4.51 [facility] Basophil percentageOrdered B y: Dr. García on 10-30-2022 Basophils/100 WBC (Bld) 0.1 % 0-1 [facility] Bilirubin [Mass/Vol] 0.70 mg/dL 0.20-1.00 [facility] Comment on above: For patients on eltr ombopag therapy, use of Dimension [place] TBIL is not recommended. Chloride [Moles/Vol] 106 mmol/L 98-107 [facility] Cholesterol [Mass/Vol] 223 mg/dL <200 [facility] Comment on above: <200 mg/dL Desirable 200-240 mg/dL Borderline >240 mg/dL High Risk Eosinophils/100 WBC (Bld) 0.3 % 0-5 [facility] Glucose [Mass/Vol] 97 mg/dL 74-106 [facility] Neutrophils (Bld) [#/Vol] 12.8 10*3/uL 2.0-7.7 [facility] Neutrophils/100 WBC (Bld) 53.6 % 47-70 [facility] Potassium [Moles/Vol] 3.3 mmol/L 3.5-5.1 [facility] Protein [Mass/Vol] 8.1 g/dL 6.4-8.2 [facility] Sodium [Moles/Vol] 139 mmol/L 136-145 [facility] Triglyceride [Mass/Vol] 196 mg/dL <199 [facility] Comment on above: The drugs N-Acetylcy steine and Metamizole may falsely depress this assay.Serum Triglycerides Reference Interval Normal <150 mg/dL Borderline high 150 - 199 mg/dL High 200 - 499 mg/dL Very High > or = 500 mg/dL WBC (Bld) [#/Vol] 23.9 10*3/uL 4.4-11.0 [facility] Blood erythrocytes count (nu mber/volume)Ordered By: Dr. García on 10-30-2022 RBC (Bld) [#/Vol] 4.84 10*6/uL 4.2-5.4 [facility] Blood hemoglobin measurement (mass/volume)Ordered By: Dr. García on 10-30-2022 Hemoglobin (Bld) [Mass/Vol] 15.5 g/dL 12.0-15.0 [facility] Blood lymphocytes/100 leukoc ytesOrdered By: Dr. García on 10-30-2022 Lymphocytes/100 WBC (Bld) 36.6 % 19-41 [facility] Blood manual differential co mment interpretation (narrative result)Ordered By: Dr. García on 10-30-2022 Manual differential comment Pollo (Bld) [Interp] SCANNED [facility] Blood monocytes/100 leukocyt esOrdered By: Dr. García on 10-30-2022 Monocytes/100 WBC (Bld) 6.2 % 0-10 [facility] Blood platelet mean volumeOr dered By: Dr. García on 10-30-2022 Platelet mean volume (Bld) [Entitic vol] 10.2 fL 6.2-12.0 [facility] Determination of erythrocyte mean corpuscular volume (MCV)Ordered By: Dr. García on 10-30-2022 MCV (RBC) [Entitic vol] 101.2 fL 81-99 [facility] Hematocrit Auto (Bld) [Volum e fraction]Ordered By: Dr. García on 10-30-2022 Hematocrit (Bld) [Volume fraction] 49.0 % 37-47 [facility] - Chemistry and C hemistry - challengeOrdered By: Dr. García on 10-30-2022 ALP [Catalytic activity/Vol] 96 U/L 45-117 [facility] ALT [Catalytic activity/Vol] 25 U/L 13-56 [facility] CO2 [Moles/Vol] 24.0 mmol/L 21.0-32.0 [facility] Globulin (S) [Mass/Vol] 5.0 g/dL 2.2-4.2 [facility] Urea nitrogen/Creatinine [Mass ratio] 15.2 mg/mg 10-20 [facility] - Hematology and Cell countsOrdered By: Dr. García on 10-30-2022 Erythrocyte distribution width (RBC) [Entitic vol] 55.8 fL 35.1-43.9 [facility] Erythrocyte distribution width (RBC) [Ratio] 14.7 % 11.6-14.6 [facility] Immature granulocytes/100 WBC (Bld) 3.200 % 0.0-0.9 [facility] Comment on above: IG% - Immature Granu locytes (promyelocytes, myelocytes and metamyelocytes) > 1% indicates that a LEFT SHIFT is Present. MCH (RBC) [Entitic mass] 32.0 pg 27.0-32.0 [facility] Nucleated RBC/100 WBC (Bld) [Ratio] 0 % 0-5 [facility] MCHC Auto (RBC) [Mass/Vol]Or dered By: Dr. García on 10-30-2022 MCHC (RBC) [Mass/Vol] 31.6 g/dL 32-36 [facility] No Panel InformationOrdered By: Dr. García on 10-30-2022 Estimated GFR (MDRD) Amer 32 mL/min >60 [facility] Comment on above: GFR Calc Estimated GFR (MDRD) Non-Af Amer 27 mL/min >60 [facility] Comment on above: Non- GFR Calc Thyroid Stimulating Hormone (TSH) 2.88 uIU/mL 0.358-3.74 [facility] Vitamin D 25-Hydroxy 37.2 ng/mL [facility] Comment on above: Vitamin D 25(OH) Sta tus Range Deficiency <20 ng/mL (50nmol/L) Insufficiency 20 - 30 ng/mL (50 - 75 nmol/L) Sufficiency 30 - 100 ng/mL (75 - 250 nmol/L) Toxicity >100 ng/mL (>250 nmol/L) Platelets bldOrdered By: Dr. García on 10-30-2022 Platelets (Bld) [#/Vol] 408 10*3/uL 150-450 [facility] Serum or plasma albumin yunior urement (mass/volume)Ordered By: Dr. García on 10-30-2022 Albumin [Mass/Vol] 3.1 g/dL 3.2-5.0 [facility] Serum or plasma albumin/glob ulin mass ratioOrdered By: Dr. García on 10-30-2022 Albumin/Globulin [Mass ratio] 0.6 {ratio} 0.9-2.4 [facility] Serum or plasma calcium yunior urement (mass/volume)Ordered By: Dr. García on 10-30-2022 Calcium [Mass/Vol] 8.7 mg/dL 8.5-10.1 [facility] Serum or plasma cholesterol in HDL measurement (mass/volume)Ordered By: Dr. García on 10-30-2022 Cholesterol in HDL [Mass/Vol] 46 mg/dL >40 [facility] Comment on above: The drugs N-Acetylcy steine and Metamizole may falsely depress this assay. Reference Range HDL <40 mg/dL Low HDL Cholesterol HDL >or= 60 mg/dL High HDL Cholesterol Serum or plasma cholesterol in VLDL measurement (mass/volume)Ordered By: Dr. García on 10-30-2022 Cholesterol in VLDL [Mass/Vol] 39 mg/dL 5-40 [facility] Serum or plasma creatinine m easurement (mass/volume)Ordered By: Dr. García on 10-30-2022 Creatinine [Mass/Vol] 1.97 mg/dL 0.55-1.02 [facility] Comment on above: The validity of the calculated GFR & GFRAA in patients over 70 years has not been determined. Clinical correlation is essential. Serum or plasma low density lipoprotein (LDL) cholesterol measurement (mass/volume)Ordered By: Dr. García on 10-30-2022 Cholesterol in LDL [Mass/Vol] 138 mg/dL 0-130 [facility] Serum or plasma urea nitroge n measurement (mass/volume)Ordered By: Dr. García on 10-30-2022 Urea nitrogen [Mass/Vol] 30 mg/dL 7-18 [facility] Thin prep Papanicolaou smear with manual screeningOrdered By: Dr. García on 10-30-2022 Thin prep Papanicolaou smear with manual screening 15 U/L 15-37 [facility] Thin prep Papanicolaou smear with manual screening 9 5-15 [facility] - Microbiology an d Antimicrobial susceptibilityOrdered By: Dr. García on 10-27-2022 SARS-CoV-2 (COVID-19) RNA BOBBI+probe Ql (Unsp spec) Not detected Not Detect [facility] Comment on above: Normal Reference Ran ge: Not DetectedMethod:(RT-PCR) real-time reverse transcriptase PCRLuminex DAILY Instrument*The Food and Drug Administration (FDA) has issued an Emergency Use Authorization (EAU) for the DAILY SARS-CoV-2 Assay for the rapid detection of the virus that causes COVID-19. This test has been validated, but the [facility] review of this validation is pending.*Negative results do not preclude infection and should not be used as the sole basis for treatment or patient management. Optimum specimen types and timing for peak viral levels during infections caused by SARS-CoV-2 have not been determined. Collection of multiple specimens from the same patient may be necessary to detect the virus. The possibility of a false negative result should be considered if the patient has clinical presentation or has had recent exposure. No Panel InformationOrdered By: Dr. García on 10-27-2022 Influenza Types A,B Direct FA (LEVI) [facility] RSV Ag EIAOrdered By: Dr. Saúl guerra on 10-27-2022 RSV Ag Immune stain Ql (Tiss) [facility] - Microbiology an d Antimicrobial susceptibilityOrdered By: Dr. García on 10-02-2022 SARS-CoV-2 (COVID-19) RNA BOBBI+probe Ql (Unsp spec) Not detected Not Detect [facility] Comment on above: Normal Reference Ran ge: Not DetectedMethod:(RT-PCR) real-time reverse transcriptase PCRLuminex DAILY Instrument*The Food and Drug Administration (FDA) has issued an Emergency Use Authorization (EAU) for the DAILY SARS-CoV-2 Assay for the rapid detection of the virus that causes COVID-19. This test has been validated, but the FDAs independent review of this validation is pending.*Negative results do not preclude infection and should not be used as the sole basis for treatment or patient management. Optimum specimen types and timing for peak viral levels during infections caused by SARS-CoV-2 have not been determined. Collection of multiple specimens from the same patient may be necessary to detect the virus. The possibility of a false negative result should be considered if the patient has clinical presentation or has had recent exposure. No Panel InformationOrdered By: Dr. García on 10-02-2022 Influenza Types A,B Direct FA (LEVI) [facility] RSV Ag EIAOrdered By: Dr. Saúl guerra on 10-02-2022 RSV Ag Immune stain Ql (Tiss) [facility] No Panel InformationOrdered By: Dr. Matthews on 08-28-2022 Parathyroid Hormone (Intact) 153.9 pg/mL 18.4-80.1 [facility] Absolute lymphocyte counton 08-03-2022 Lymphocytes Auto (Unsp spec) [#/Vol] 4.56 10*3/uL 0.83-4.51 [facility] Work Phone: Basophil percentageon 2021 Basophils/100 WBC (Bld) 0.4 % 0-1 [facility] Work Phone: Bilirubin [Mass/Vol] 0.60 mg/dL 0.20-1.00 [facility] Work Phone: Comment on above: For patients on eltr ombopag therapy, use of Dimension [place] TBIL is not recommended. Chloride [Moles/Vol] 110 mmol/L 98-107 [facility] Work Phone: Cholesterol [Mass/Vol] 150 mg/dL <200 [facility] Work Phone: Comment on above: <200 mg/dL Desirable 200-240 mg/dL Borderline >240 mg/dL High Risk Eosinophils/100 WBC (Bld) 0.6 % 0-5 [facility] Work Phone: Glucose [Mass/Vol] 96 mg/dL 74-106 [facility] Work Phone: Neutrophils (Bld) [#/Vol] 8.8 10*3/uL 2.0-7.7 [facility] Work Phone: Neutrophils/100 WBC (Bld) 61.4 % 47-70 [facility] Work Phone: Potassium [Moles/Vol] 4.2 mmol/L 3.5-5.1 [facility] Work Phone: Protein [Mass/Vol] 6.9 g/dL 6.4-8.2 [facility] Work Phone: Sodium [Moles/Vol] 139 mmol/L 136-145 [facility] Work Phone: Triglyceride [Mass/Vol] 191 mg/dL <199 [facility] Work Phone: [phone] Comment on above: The drugs N-Acetylcy steine and Metamizole may falsely depress this assay.Serum Triglycerides Reference Interval Normal <150 mg/dL Borderline high 150 - 199 mg/dL High 200 - 499 mg/dL Very High > or = 500 mg/dL WBC (Bld) [#/Vol] 14.4 10*3/uL 4.4-11.0 [facility] Work Phone: Blood erythrocytes count (nu mber/volume)on 08-03-2022 RBC (Bld) [#/Vol] 4.10 10*6/uL 4.2-5.4 [facility] Work Phone: Blood hemoglobin measurement (mass/volume)on 08-03-2022 Hemoglobin (Bld) [Mass/Vol] 13.4 g/dL 12.0-15.0 [facility] Work Phone: Blood lymphocytes/100 leukoc yteson 08-03-2022 Lymphocytes/100 WBC (Bld) 31.7 % 19-41 [facility] Work Phone: Blood monocytes/100 leukocyt eson 08-03-2022 Monocytes/100 WBC (Bld) 5.3 % 0-10 [facility] Work Phone: Blood platelet mean volumeon 08-03-2022 Platelet mean volume (Bld) [Entitic vol] 10.2 fL 6.2-12.0 [facility] Work Phone: Determination of erythrocyte mean corpuscular volume (MCV)on 08-03-2022 MCV (RBC) [Entitic vol] 99.0 fL 81-99 [facility] Work Phone: [phone] Hematocrit Auto (Bld) [Volum e fraction]on 08-03-2022 Hematocrit (Bld) [Volume fraction] 40.6 % 37-47 [facility] Work Phone: [phone] Laboratory - Chemistry and C hemistry - challengeon 08-03-2022 ALP [Catalytic activity/Vol] 87 U/L 45-117 [facility] Work Phone: ALT [Catalytic activity/Vol] 11 U/L 13-56 [facility] Work Phone: [phone] CO2 [Moles/Vol] 21.0 mmol/L 21.0-32.0 [facility] Work Phone: [phone] Globulin (S) [Mass/Vol] 4.7 g/dL 2.2-4.2 [facility] Work Phone: [phone] Urea nitrogen/Creatinine [Mass ratio] 6.3 mg/mg 10-20 [facility] Work Phone: [phone] Laboratory - Hematology and Cell countson 08-03-2022 Erythrocyte distribution width (RBC) [Entitic vol] 55.6 fL 35.1-43.9 [facility] Work Phone: [phone] Erythrocyte distribution width (RBC) [Ratio] 15.2 % 11.6-14.6 [facility] Work Phone: [phone] Immature granulocytes/100 WBC (Bld) 0.600 % 0.0-0.9 [facility] Work Phone: [phone] Comment on above: IG% - Immature Granu locytes (promyelocytes, myelocytes and metamyelocytes) > 1% indicates that a LEFT SHIFT is Present. MCH (RBC) [Entitic mass] 32.7 pg 27.0-32.0 [facility] Work Phone: [phone] Nucleated RBC/100 WBC (Bld) [Ratio] 0 % 0-5 [facility] Work Phone: MCHC Auto (RBC) [Mass/Vol]on 08-03-2022 MCHC (RBC) [Mass/Vol] 33.0 g/dL 32-36 [facility] Work Phone: No Panel Informationon 08-03 Estimated GFR (MDRD) Amer 42 mL/min >60 [facility] Work Phone: Comment on above: GFR Calc Estimated GFR (MDRD) Non-Af Amer 34 mL/min >60 [facility] Work Phone: Comment on above: Non- GFR Calc Thyroid Stimulating Hormone (TSH) 3.69 uIU/mL 0.358-3.74 [facility] Work Phone: Vitamin D 25-Hydroxy 31.9 ng/mL [facility] Work Phone: Comment on above: Vitamin D 25(OH) Sta tus Range Deficiency <20 ng/mL (50nmol/L) Insufficiency 20 - 30 ng/mL (50 - 75 nmol/L) Sufficiency 30 - 100 ng/mL (75 - 250 nmol/L) Toxicity >100 ng/mL (>250 nmol/L) Platelets bldon 08-03-2022 Platelets (Bld) [#/Vol] 291 10*3/uL 150-450 [facility] Work Phone: Serum or plasma albumin yunior urement (mass/volume)on 08-03-2022 Albumin [Mass/Vol] 2.2 g/dL 3.2-5.0 [facility] Work Phone: Serum or plasma albumin/glob ulin mass ratioon 08-03-2022 Albumin/Globulin [Mass ratio] 0.5 {ratio} 0.9-2.4 [facility] Work Phone: Serum or plasma calcium yunior urement (mass/volume)on 08-03-2022 Calcium [Mass/Vol] 8.4 mg/dL 8.5-10.1 [facility] Work Phone: Serum or plasma cholesterol in HDL measurement (mass/volume)on 08-03-2022 Cholesterol in HDL [Mass/Vol] 28 mg/dL >40 [facility] Work Phone: Comment on above: The drugs N-Acetylcy steine and Metamizole may falsely depress this assay. Reference Range HDL <40 mg/dL Low HDL Cholesterol HDL >or= 60 mg/dL High HDL Cholesterol Serum or plasma cholesterol in VLDL measurement (mass/volume)on 08-03-2022 Cholesterol in VLDL [Mass/Vol] 38 mg/dL 5-40 [facility] Work Phone: Serum or plasma creatinine m easurement (mass/volume)on 08-03-2022 Creatinine [Mass/Vol] 1.58 mg/dL 0.55-1.02 [facility] Work Phone: Comment on above: The validity of the calculated GFR & GFRAA in patients over 70 years has not been determined. Clinical correlation is essential. Serum or plasma low density lipoprotein (LDL) cholesterol measurement (mass/volume)on 08-03-2022 Cholesterol in LDL [Mass/Vol] 84 mg/dL 0-130 [facility] Work Phone: Serum or plasma urea nitroge n measurement (mass/volume)on 08-03-2022 Urea nitrogen [Mass/Vol] 10 mg/dL 7-18 [facility] Work Phone: Thin prep Papanicolaou smear with manual screeningon 08-03-2022 Thin prep Papanicolaou smear with manual screening 12 U/L 15-37 [facility] Work Phone: Thin prep Papanicolaou smear with manual screening 8 5-15 [facility] Work Phone: Absolute lymphocyte counton 08-01-2022 Lymphocytes Auto (Unsp spec) [#/Vol] 2.54 10*3/uL 0.83-4.51 [facility] Work Phone: Basophil percentageon 2021 Basophils/100 WBC (Bld) 0.4 % 0-1 [facility] Work Phone: Bilirubin [Mass/Vol] 0.40 mg/dL 0.20-1.00 [facility] Work Phone: Comment on above: For patients on eltr ombopag therapy, use of Dimension [place] TBIL is not recommended. Chloride [Moles/Vol] 118 mmol/L 98-107 [facility] Work Phone: Eosinophils/100 WBC (Bld) 0.8 % 0-5 [facility] Work Phone: Glucose [Mass/Vol] 89 mg/dL 74-106 [facility] Work Phone: Neutrophils (Bld) [#/Vol] 6.4 10*3/uL 2.0-7.7 [facility] Work Phone: Neutrophils/100 WBC (Bld) 67.1 % 47-70 [facility] Work Phone: Potassium [Moles/Vol] 3.8 mmol/L 3.5-5.1 [facility] Work Phone: Protein [Mass/Vol] 5.7 g/dL 6.4-8.2 [facility] Work Phone: Sodium [Moles/Vol] 144 mmol/L 136-145 [facility] Work Phone: WBC (Bld) [#/Vol] 9.5 10*3/uL 4.4-11.0 [facility] Work Phone: Blood erythrocytes count (nu mber/volume)on 08-01-2022 RBC (Bld) [#/Vol] 3.68 10*6/uL 4.2-5.4 [facility] Work Phone: Blood hemoglobin measurement (mass/volume)on 08-01-2022 Hemoglobin (Bld) [Mass/Vol] 11.9 g/dL 12.0-15.0 [facility] Work Phone: Blood lymphocytes/100 leukoc yteson 08-01-2022 Lymphocytes/100 WBC (Bld) 26.7 % 19-41 [facility] Work Phone: Blood monocytes/100 leukocyt eson 08-01-2022 Monocytes/100 WBC (Bld) 4.1 % 0-10 [facility] Work Phone: Blood platelet mean volumeon 08-01-2022 Platelet mean volume (Bld) [Entitic vol] 9.9 fL 6.2-12.0 [facility] Work Phone: Determination of erythrocyte mean corpuscular volume (MCV)on 08-01-2022 MCV (RBC) [Entitic vol] 101.1 fL 81-99 [facility] Work Phone: Hematocrit Auto (Bld) [Volum e fraction]on 08-01-2022 Hematocrit (Bld) [Volume fraction] 37.2 % 37-47 [facility] Work Phone: [phone] Laboratory - Chemistry and C hemistry - challengeon 08-01-2022 ALP [Catalytic activity/Vol] 61 U/L 45-117 [facility] Work Phone: ALT [Catalytic activity/Vol] 7 U/L 13-56 [facility] Work Phone: CO2 [Moles/Vol] 18.0 mmol/L 21.0-32.0 [facility] Work Phone: Globulin (S) [Mass/Vol] 4.0 g/dL 2.2-4.2 [facility] Work Phone: Urea nitrogen/Creatinine [Mass ratio] 8.8 mg/mg 10-20 [facility] Work Phone: Laboratory - Hematology and Cell countson 08-01-2022 Erythrocyte distribution width (RBC) [Entitic vol] 57.3 fL 35.1-43.9 [facility] Work Phone: Erythrocyte distribution width (RBC) [Ratio] 15.2 % 11.6-14.6 [facility] Work Phone: Immature granulocytes/100 WBC (Bld) 0.900 % 0.0-0.9 [facility] Work Phone: Comment on above: IG% - Immature Granu locytes (promyelocytes, myelocytes and metamyelocytes) > 1% indicates that a LEFT SHIFT is Present. MCH (RBC) [Entitic mass] 32.3 pg 27.0-32.0 [facility] Work Phone: Nucleated RBC/100 WBC (Bld) [Ratio] 0 % 0-5 [facility] Work Phone: MCHC Auto (RBC) [Mass/Vol]on 08-01-2022 MCHC (RBC) [Mass/Vol] 32.0 g/dL 32-36 [facility] Work Phone: No Panel Informationon 08-01 Estimated Creatinine Clearance Calc 31.32 ml/min [facility] Work Phone: Estimated GFR (MDRD) Amer 38 mL/min >60 [facility] Work Phone: Comment on above: GFR Calc Estimated GFR (MDRD) Non-Af Amer 31 mL/min >60 [facility] Work Phone: Comment on above: Non- GFR Calc Platelets bldon 08-01-2022 Platelets (Bld) [#/Vol] 194 10*3/uL 150-450 [facility] Work Phone: Serum or plasma albumin yunior urement (mass/volume)on 08-01-2022 Albumin [Mass/Vol] 1.7 g/dL 3.2-5.0 [facility] Work Phone: Serum or plasma albumin/glob ulin mass ratioon 08-01-2022 Albumin/Globulin [Mass ratio] 0.4 {ratio} 0.9-2.4 [facility] Work Phone: Serum or plasma calcium yunior urement (mass/volume)on 08-01-2022 Calcium [Mass/Vol] 7.7 mg/dL 8.5-10.1 [facility] Work Phone: Serum or plasma creatinine m easurement (mass/volume)on 08-01-2022 Creatinine [Mass/Vol] 1.71 mg/dL 0.55-1.02 [facility] Work Phone: Comment on above: The validity of the calculated GFR & GFRAA in patients over 70 years has not been determined. Clinical correlation is essential. Serum or plasma urea nitroge n measurement (mass/volume)on 08-01-2022 Urea nitrogen [Mass/Vol] 15 mg/dL 7-18 [facility] Work Phone: Thin prep Papanicolaou smear with manual screeningon 08-01-2022 Thin prep Papanicolaou smear with manual screening 7 U/L 15-37 [facility] Work Phone: Thin prep Papanicolaou smear with manual screening 8 5-15 [facility] Work Phone: Basophil percentageon 2021 Basophil percentage 3.3 mg/dL 2.5-4.9 [facility] Work Phone: Laboratory - Chemistry and C hemistry - challengeon 07-31-2022 Magnesium [Mass/Vol] 1.7 mg/dL 1.6-2.6 [facility] Work Phone: Basophil percentageon 2021 Lactate [Moles/Vol] 1.2 mmol/L 0.4-2.0 [facility] Work Phone: Basophil percentageon 2021 Basophil percentage 25-50 SEEN /hpf 0-5 [facility] Work Phone: Bilirubin Test strip Ql (U)o n 07-29-2022 Bilirubin Ql (U) Negative Negative [facility] Work Phone: Blood manual differential co mment interpretation (narrative result)on 07-29-2022 Manual differential comment Pollo (Bld) [Interp] SCANNED [facility] Work Phone: Comment on above: NEUTROPHILIA NOTED Ketones Test strip Ql (U)on 07-29-2022 Ketones Ql (U) Negative Negative [facility] Work Phone: Mucus LM Ql (Urine sed)on Mucus Ql (Urine sed) 0 SEEN /hpf [facility] Work Phone: Nitrite Test strip Ql (U)on 07-29-2022 Nitrite Ql (U) Negative Negative [facility] Work Phone: Protein Test strip Ql (U)on 07-29-2022 Protein Ql (U) 500 mg/dl Negative [facility] Work Phone: [phone] Squamous epithelial cells de tection in urine sediment by light microscopyon 07-29-2022 Epithelial cells.squamous LM Ql (Urine sed) 0-5 SEEN /hpf 5-10 [facility] Work Phone: Urine blood detectionon 07-20 RBC Ql (U) 250 /ul Negative [facility] Work Phone: RBC Ql (U) 5-10 SEEN /hpf 0-5 [facility] Work Phone: Urine clarityon 07-29-2022 Clarity (U) Clear Clear [facility] Work Phone: Urine color determinationon 07-29-2022 Color (U) Yellow Yellow [facility] Work Phone: Urine glucose detectionon Glucose Ql (U) Normal mg/dl Normal [facility] Work Phone: Urine leukocyte esterase det ection by dipstickon 07-29-2022 Leukocyte esterase Test strip Ql (U) 500 /ul Negative [facility] Work Phone: Urine pHon 07-29-2022 pH (U) 6.5 [pH] 5.0 - 8.0 [facility] Work Phone: [phone] Urine sediment bacteria coun t by microscopy (number/high power field)on 07-29-2022 Bacteria LM.HPF (Urine sed) [#/Area] 1 /[HPF] None Seen [facility] Work Phone: Urine specific gravity measu rementon 07-29-2022 Specific gravity (U) [Rel density] 1.010 1.002-1.03 0 [facility] Work Phone: Urobilinogen Auto test strip Ql (U)on 07-29-2022 Urobilinogen Ql (U) Normal mg/dl Normal [facility] Work Phone: [phone] Basophil percentageon 2021 Basophil percentage 3.2 mg/dL 2.5-4.9 [facility] Work Phone: [phone] Chloride [Moles/Vol] 107 mmol/L 98-107 [facility] Work Phone: [phone] Glucose [Mass/Vol] 100 mg/dL 74-106 [facility] Work Phone: [phone] Comment on above: Fasting Glucose resu lt from 100 to 125 mg/dL suggests IMPAIRED HOMEOSTASIS per A.D.A. criteria. Potassium [Moles/Vol] 3.9 mmol/L 3.5-5.1 [facility] Work Phone: Sodium [Moles/Vol] 141 mmol/L 136-145 [facility] Work Phone: WBC (Bld) [#/Vol] 13.8 10*3/uL 4.4-11.0 [facility] Work Phone: Blood erythrocytes count (nu mber/volume)on 07-21-2022 RBC (Bld) [#/Vol] 4.69 10*6/uL 4.2-5.4 [facility] Work Phone: Blood hemoglobin measurement (mass/volume)on 07-21-2022 Hemoglobin (Bld) [Mass/Vol] 15.3 g/dL 12.0-15.0 [facility] Work Phone: [phone] Blood platelet mean volumeon 07-21-2022 Platelet mean volume (Bld) [Entitic vol] 9.9 fL 6.2-12.0 [facility] Work Phone: Determination of erythrocyte mean corpuscular volume (MCV)on 07-21-2022 MCV (RBC) [Entitic vol] 99.8 fL 81-99 [facility] Work Phone: Hematocrit Auto (Bld) [Volum e fraction]on 07-21-2022 Hematocrit (Bld) [Volume fraction] 46.8 % 37-47 [facility] Work Phone: Laboratory - Chemistry and C hemistry - challengeon 07-21-2022 CO2 [Moles/Vol] 25.0 mmol/L 21.0-32.0 [facility] Work Phone: Urea nitrogen/Creatinine [Mass ratio] 11.4 mg/mg 10-20 [facility] Work Phone: Laboratory - Hematology and Cell countson 07-21-2022 Erythrocyte distribution width (RBC) [Entitic vol] 52.1 fL 35.1-43.9 [facility] Work Phone: Erythrocyte distribution width (RBC) [Ratio] 14.2 % 11.6-14.6 [facility] Work Phone: MCH (RBC) [Entitic mass] 32.6 pg 27.0-32.0 [facility] Work Phone: MCHC Auto (RBC) [Mass/Vol]on 07-21-2022 MCHC (RBC) [Mass/Vol] 32.7 g/dL 32-36 [facility] Work Phone: No Panel Informationon 07-21 Estimated GFR (MDRD) Amer 35 mL/min >60 [facility] Work Phone: Comment on above: GFR Calc Estimated GFR (MDRD) Non-Af Amer 29 mL/min >60 [facility] Work Phone: Comment on above: Non- GFR Calc Parathyroid Hormone (Intact) 217.2 pg/mL 18.4-80.1 [facility] Work Phone: Platelets bldon 07-21-2022 Platelets (Bld) [#/Vol] 327 10*3/uL 150-450 [facility] Work Phone: Serum or plasma albumin yunior urement (mass/volume)on 07-21-2022 Albumin [Mass/Vol] 2.8 g/dL 3.2-5.0 [facility] Work Phone: Serum or plasma calcium yunior urement (mass/volume)on 07-21-2022 Calcium [Mass/Vol] 8.5 mg/dL 8.5-10.1 [facility] Work Phone: Serum or plasma creatinine m easurement (mass/volume)on 07-21-2022 Creatinine [Mass/Vol] 1.85 mg/dL 0.55-1.02 [facility] Work Phone: Comment on above: The validity of the calculated GFR & GFRAA in patients over 70 years has not been determined. Clinical correlation is essential. Serum or plasma urea nitroge n measurement (mass/volume)on 07-21-2022 Urea nitrogen [Mass/Vol] 21 mg/dL 7-18 [facility] Work Phone: Absolute lymphocyte counton 07-04-2022 Lymphocytes Auto (Unsp spec) [#/Vol] 7.15 10*3/uL 0.83-4.51 [facility] Work Phone: Basophil percentageon 2021 Basophils/100 WBC (Bld) 0.5 % 0-1 [facility] Work Phone: Bilirubin [Mass/Vol] 0.50 mg/dL 0.20-1.00 [facility] Work Phone: Comment on above: For patients on eltr ombopag therapy, use of Dimension [place] TBIL is not recommended. Chloride [Moles/Vol] 109 mmol/L 98-107 [facility] Work Phone: Eosinophils/100 WBC (Bld) 0.7 % 0-5 [facility] Work Phone: Glucose [Mass/Vol] 104 mg/dL 74-106 [facility] Work Phone: Comment on above: Fasting Glucose resu lt from 100 to 125 mg/dL suggests IMPAIRED HOMEOSTASIS per A.D.A. criteria. Neutrophils (Bld) [#/Vol] 8.1 10*3/uL 2.0-7.7 [facility] Work Phone: [phone] Neutrophils/100 WBC (Bld) 48.9 % 47-70 [facility] Work Phone: [phone] Potassium [Moles/Vol] 3.8 mmol/L 3.5-5.1 [facility] Work Phone: [phone] Protein [Mass/Vol] 7.4 g/dL 6.4-8.2 [facility] Work Phone: [phone] Sodium [Moles/Vol] 139 mmol/L 136-145 [facility] Work Phone: [phone] WBC (Bld) [#/Vol] 16.6 10*3/uL 4.4-11.0 [facility] Work Phone: Blood erythrocytes count (nu mber/volume)on 07-04-2022 RBC (Bld) [#/Vol] 4.69 10*6/uL 4.2-5.4 [facility] Work Phone: Blood hemoglobin measurement (mass/volume)on 07-04-2022 Hemoglobin (Bld) [Mass/Vol] 15.1 g/dL 12.0-15.0 [facility] Work Phone: [phone] Blood lymphocytes/100 leukoc yteson 07-04-2022 Lymphocytes/100 WBC (Bld) 43.0 % 19-41 [facility] Work Phone: [phone] Blood manual differential co mment interpretation (narrative result)on 07-04-2022 Manual differential comment Pollo (Bld) [Interp] COMMENT [facility] Work Phone: Comment on above: LYMPHOCYTOSIS. Blood monocytes/100 leukocyt eson 07-04-2022 Monocytes/100 WBC (Bld) 6.4 % 0-10 [facility] Work Phone: [phone] Blood platelet mean volumeon 07-04-2022 Platelet mean volume (Bld) [Entitic vol] 9.4 fL 6.2-12.0 [facility] Work Phone: Determination of erythrocyte mean corpuscular volume (MCV)on 07-04-2022 MCV (RBC) [Entitic vol] 98.7 fL 81-99 [facility] Work Phone: Hematocrit Auto (Bld) [Volum e fraction]on 07-04-2022 Hematocrit (Bld) [Volume fraction] 46.3 % 37-47 [facility] Work Phone: [phone] Laboratory - Chemistry and C hemistry - challengeon 07-04-2022 ALP [Catalytic activity/Vol] 82 U/L 45-117 [facility] Work Phone: ALT [Catalytic activity/Vol] 12 U/L 13-56 [facility] Work Phone: CO2 [Moles/Vol] 25.0 mmol/L 21.0-32.0 [facility] Work Phone: Globulin (S) [Mass/Vol] 4.7 g/dL 2.2-4.2 [facility] Work Phone: Urea nitrogen/Creatinine [Mass ratio] 7.5 mg/mg 10-20 [facility] Work Phone: Laboratory - Hematology and Cell countson 07-04-2022 Erythrocyte distribution width (RBC) [Entitic vol] 51.2 fL 35.1-43.9 [facility] Work Phone: Erythrocyte distribution width (RBC) [Ratio] 14.3 % 11.6-14.6 [facility] Work Phone: Immature granulocytes/100 WBC (Bld) 0.500 % 0.0-0.9 [facility] Work Phone: Comment on above: IG% - Immature Granu locytes (promyelocytes, myelocytes and metamyelocytes) > 1% indicates that a LEFT SHIFT is Present. MCH (RBC) [Entitic mass] 32.2 pg 27.0-32.0 [facility] Work Phone: Nucleated RBC/100 WBC (Bld) [Ratio] 0 % 0-5 [facility] Work Phone: MCHC Auto (RBC) [Mass/Vol]on 07-04-2022 MCHC (RBC) [Mass/Vol] 32.6 g/dL 32-36 [facility] Work Phone: No Panel Informationon 07-04 Estimated GFR (MDRD) Amer 34 mL/min >60 [facility] Work Phone: Comment on above: GFR Calc Estimated GFR (MDRD) Non-Af Amer 28 mL/min >60 [facility] Work Phone: Comment on above: Non- GFR Calc Platelets bldon 07-04-2022 Platelets (Bld) [#/Vol] 321 10*3/uL 150-450 [facility] Work Phone: Serum or plasma albumin yunior urement (mass/volume)on 07-04-2022 Albumin [Mass/Vol] 2.7 g/dL 3.2-5.0 [facility] Work Phone: Serum or plasma albumin/glob ulin mass ratioon 07-04-2022 Albumin/Globulin [Mass ratio] 0.6 {ratio} 0.9-2.4 [facility] Work Phone: Serum or plasma calcium yunior urement (mass/volume)on 07-04-2022 Calcium [Mass/Vol] 8.6 mg/dL 8.5-10.1 [facility] Work Phone: Serum or plasma creatinine m easurement (mass/volume)on 07-04-2022 Creatinine [Mass/Vol] 1.87 mg/dL 0.55-1.02 [facility] Work Phone: Comment on above: The validity of the calculated GFR & GFRAA in patients over 70 years has not been determined. Clinical correlation is essential. Serum or plasma urea nitroge n measurement (mass/volume)on 07-04-2022 Urea nitrogen [Mass/Vol] 14 mg/dL 7-18 [facility] Work Phone: Thin prep Papanicolaou smear with manual screeningon 07-04-2022 Thin prep Papanicolaou smear with manual screening 8 U/L 15-37 [facility] Work Phone: Thin prep Papanicolaou smear with manual screening 5 5-15 [facility] Work Phone: Thin prep Papanicolaou smear with manual screening 165 U/L 84-246 [facility] Work Phone: Laboratory - Microbiology an d Antimicrobial susceptibilityon 05-12-2022 SARS-CoV-2 (COVID-19) RNA BOBBI+probe Ql (Unsp spec) Not detected Not Detect [facility] Work Phone: Comment on above: Normal Reference Ran ge: Not DetectedMethod:(RT-PCR) real-time reverse transcriptase PCRLuminex Genasys Instrument*The Food and Drug Administration (FDA) has issued an Emergency Use Authorization (EAU) for the DAILY SARS-CoV-2 Assay for the rapid detection of the virus that causes COVID-19. This test has been validated, but the FDAs independent review of this validation is pending.*Negative results do not preclude infection and should not be used as the sole basis for treatment or patient management. Optimum specimen types and timing for peak viral levels during infections caused by SARS-CoV-2 have not been determined. Collection of multiple specimens from the same patient may be necessary to detect the virus. The possibility of a false negative result should be considered if the patient has clinical presentation or has had recent exposure. Absolute lymphocyte counton 05-02-2022 Lymphocytes Auto (Unsp spec) [#/Vol] 7.41 10*3/uL 0.83-4.51 [facility] Work Phone: Basophil percentageon 2021 Basophils/100 WBC (Bld) 0.5 % 0-1 [facility] Work Phone: Bilirubin [Mass/Vol] 0.50 mg/dL 0.20-1.00 [facility] Work Phone: Comment on above: For patients on eltr ombopag therapy, use of Dimension [place] TBIL is not recommended. Chloride [Moles/Vol] 108 mmol/L 98-107 [facility] Work Phone: Cholesterol [Mass/Vol] 188 mg/dL <200 [facility] Work Phone: [phone] Comment on above: <200 mg/dL Desirable 200-240 mg/dL Borderline >240 mg/dL High Risk Eosinophils/100 WBC (Bld) 0.6 % 0-5 [facility] Work Phone: [phone] Glucose [Mass/Vol] 99 mg/dL 74-106 [facility] Work Phone: [phone] Neutrophils (Bld) [#/Vol] 7.0 10*3/uL 2.0-7.7 [facility] Work Phone: [phone] Neutrophils/100 WBC (Bld) 45.2 % 47-70 [facility] Work Phone: [phone] Potassium [Moles/Vol] 4.3 mmol/L 3.5-5.1 [facility] Work Phone: [phone] Protein [Mass/Vol] 7.6 g/dL 6.4-8.2 [facility] Work Phone: [phone] Sodium [Moles/Vol] 140 mmol/L 136-145 [facility] Work Phone: [phone] Triglyceride [Mass/Vol] 97 mg/dL <199 [facility] Work Phone: Comment on above: The drugs N-Acetylcy steine and Metamizole may falsely depress this assay.Serum Triglycerides Reference Interval Normal <150 mg/dL Borderline high 150 - 199 mg/dL High 200 - 499 mg/dL Very High > or = 500 mg/dL WBC (Bld) [#/Vol] 15.6 10*3/uL 4.4-11.0 [facility] Work Phone: [phone] Blood erythrocytes count (nu mber/volume)on 05-02-2022 RBC (Bld) [#/Vol] 4.60 10*6/uL 4.2-5.4 [facility] Work Phone: [phone] Blood hemoglobin measurement (mass/volume)on 05-02-2022 Hemoglobin (Bld) [Mass/Vol] 14.9 g/dL 12.0-15.0 [facility] Work Phone: Blood lymphocytes/100 leukoc yteson 05-02-2022 Lymphocytes/100 WBC (Bld) 47.6 % 19-41 [facility] Work Phone: Blood manual differential co mment interpretation (narrative result)on 05-02-2022 Manual differential comment Pollo (Bld) [Interp] COMMENT [facility] Work Phone: Comment on above: LYMPHOCYTOSIS. Blood monocytes/100 leukocyt eson 05-02-2022 Monocytes/100 WBC (Bld) 5.8 % 0-10 [facility] Work Phone: Blood platelet mean volumeon 05-02-2022 Platelet mean volume (Bld) [Entitic vol] 10.3 fL 6.2-12.0 [facility] Work Phone: Determination of erythrocyte mean corpuscular volume (MCV)on 05-02-2022 MCV (RBC) [Entitic vol] 99.1 fL 81-99 [facility] Work Phone: Hematocrit Auto (Bld) [Volum e fraction]on 05-02-2022 Hematocrit (Bld) [Volume fraction] 45.6 % 37-47 [facility] Work Phone: Laboratory - Chemistry and C hemistry - challengeon 05-02-2022 ALP [Catalytic activity/Vol] 104 U/L 45-117 [facility] Work Phone: ALT [Catalytic activity/Vol] 17 U/L 13-56 [facility] Work Phone: CO2 [Moles/Vol] 25.0 mmol/L 21.0-32.0 [facility] Work Phone: Globulin (S) [Mass/Vol] 4.8 g/dL 2.2-4.2 [facility] Work Phone: Urea nitrogen/Creatinine [Mass ratio] 6.8 mg/mg 10-20 [facility] Work Phone: Laboratory - Hematology and Cell countson 05-02-2022 Erythrocyte distribution width (RBC) [Entitic vol] 50.5 fL 35.1-43.9 [facility] Work Phone: Erythrocyte distribution width (RBC) [Ratio] 13.9 % 11.6-14.6 [facility] Work Phone: Immature granulocytes/100 WBC (Bld) 0.300 % 0.0-0.9 [facility] Work Phone: Comment on above: IG% - Immature Granu locytes (promyelocytes, myelocytes and metamyelocytes) > 1% indicates that a LEFT SHIFT is Present. MCH (RBC) [Entitic mass] 32.4 pg 27.0-32.0 [facility] Work Phone: Nucleated RBC/100 WBC (Bld) [Ratio] 0 % 0-5 [facility] Work Phone: MCHC Auto (RBC) [Mass/Vol]on 05-02-2022 MCHC (RBC) [Mass/Vol] 32.7 g/dL 32-36 [facility] Work Phone: No Panel Informationon 05-02 Estimated GFR (MDRD) Amer 31 mL/min >60 [facility] Work Phone: Comment on above: GFR Calc Estimated GFR (MDRD) Non-Af Amer 26 mL/min >60 [facility] Work Phone: Comment on above: Non- GFR Calc Thyroid Stimulating Hormone (TSH) 3.28 uIU/mL 0.358-3.74 [facility] Work Phone: Vitamin D 25-Hydroxy 44.1 ng/mL [facility] Work Phone: Comment on above: Vitamin D 25(OH) Sta tus Range Deficiency <20 ng/mL (50nmol/L) Insufficiency 20 - 30 ng/mL (50 - 75 nmol/L) Sufficiency 30 - 100 ng/mL (75 - 250 nmol/L) Toxicity >100 ng/mL (>250 nmol/L) Platelets bldon 06-14-2022 Platelets (Bld) [#/Vol] 351 10*3/uL 150-450 [facility] Work Phone: Serum or plasma albumin yunior urement (mass/volume)on 05-02-2022 Albumin [Mass/Vol] 2.8 g/dL 3.2-5.0 [facility] Work Phone: Serum or plasma albumin/glob ulin mass ratioon 05-02-2022 Albumin/Globulin [Mass ratio] 0.6 {ratio} 0.9-2.4 [facility] Work Phone: Serum or plasma calcium yunior urement (mass/volume)on 05-02-2022 Calcium [Mass/Vol] 8.6 mg/dL 8.5-10.1 [facility] Work Phone: Serum or plasma cholesterol in HDL measurement (mass/volume)on 05-02-2022 Cholesterol in HDL [Mass/Vol] 43 mg/dL >40 [facility] Work Phone: Comment on above: The drugs N-Acetylcy steine and Metamizole may falsely depress this assay. Reference Range HDL <40 mg/dL Low HDL Cholesterol HDL >or= 60 mg/dL High HDL Cholesterol Serum or plasma cholesterol in VLDL measurement (mass/volume)on 05-02-2022 Cholesterol in VLDL [Mass/Vol] 19 mg/dL 5-40 [facility] Work Phone: Serum or plasma creatinine m easurement (mass/volume)on 05-02-2022 Creatinine [Mass/Vol] 2.05 mg/dL 0.55-1.02 [facility] Work Phone: Comment on above: The validity of the calculated GFR & GFRAA in patients over 70 years has not been determined. Clinical correlation is essential. Serum or plasma low density lipoprotein (LDL) cholesterol measurement (mass/volume)on 05-02-2022 Cholesterol in LDL [Mass/Vol] 126 mg/dL 0-130 [facility] Work Phone: Serum or plasma urea nitroge n measurement (mass/volume)on 05-02-2022 Urea nitrogen [Mass/Vol] 14 mg/dL 7-18 [facility] Work Phone: Thin prep Papanicolaou smear with manual screeningon 05-02-2022 Thin prep Papanicolaou smear with manual screening 12 U/L 15-37 [facility] Work Phone: Thin prep Papanicolaou smear with manual screening 7 5-15 [facility] Work Phone: Basophil percentageon 2021 Basophil percentage 3.4 mg/dL 2.5-4.9 [facility] Work Phone: Chloride [Moles/Vol] 105 mmol/L 98-107 [facility] Work Phone: Glucose [Mass/Vol] 96 mg/dL 74-106 [facility] Work Phone: Potassium [Moles/Vol] 4.3 mmol/L 3.5-5.1 [facility] Work Phone: Sodium [Moles/Vol] 138 mmol/L 136-145 [facility] Work Phone: [phone] WBC (Bld) [#/Vol] 13.9 10*3/uL 4.4-11.0 [facility] Work Phone: [phone] Blood erythrocytes count (nu mber/volume)on 03-15-2022 RBC (Bld) [#/Vol] 4.70 10*6/uL 4.2-5.4 [facility] Work Phone: [phone] Blood hemoglobin measurement (mass/volume)on 03-15-2022 Hemoglobin (Bld) [Mass/Vol] 15.1 g/dL 12.0-15.0 [facility] Work Phone: Blood platelet mean volumeon 03-15-2022 Platelet mean volume (Bld) [Entitic vol] 10.3 fL 6.2-12.0 [facility] Work Phone: [phone] Determination of erythrocyte mean corpuscular volume (MCV)on 03-15-2022 MCV (RBC) [Entitic vol] 99.6 fL 81-99 [facility] Work Phone: Hematocrit Auto (Bld) [Volum e fraction]on 03-15-2022 Hematocrit (Bld) [Volume fraction] 46.8 % 37-47 [facility] Work Phone: Laboratory - Chemistry and C hemistry - challengeon 03-15-2022 CO2 [Moles/Vol] 27.0 mmol/L 21.0-32.0 [facility] Work Phone: Urea nitrogen/Creatinine [Mass ratio] 7.4 mg/mg 10-20 [facility] Work Phone: Laboratory - Hematology and Cell countson 03-15-2022 Erythrocyte distribution width (RBC) [Entitic vol] 51.3 fL 35.1-43.9 [facility] Work Phone: Erythrocyte distribution width (RBC) [Ratio] 14.0 % 11.6-14.6 [facility] Work Phone: MCH (RBC) [Entitic mass] 32.1 pg 27.0-32.0 [facility] Work Phone: MCHC Auto (RBC) [Mass/Vol]on 03-15-2022 MCHC (RBC) [Mass/Vol] 32.3 g/dL 32-36 [facility] Work Phone: No Panel Informationon 03-15 Estimated GFR (MDRD) Amer 31 mL/min >60 [facility] Work Phone: Comment on above: GFR Calc Estimated GFR (MDRD) Non-Af Amer 26 mL/min >60 [facility] Work Phone: Comment on above: Non- GFR Calc Parathyroid Hormone (Intact) 151.1 pg/mL 18.4-80.1 [facility] Work Phone: Vitamin D 25-Hydroxy 31.6 ng/mL [facility] Work Phone: Comment on above: Vitamin D 25(OH) Sta tus Range Deficiency <20 ng/mL (50nmol/L) Insufficiency 20 - 30 ng/mL (50 - 75 nmol/L) Sufficiency 30 - 100 ng/mL (75 - 250 nmol/L) Toxicity >100 ng/mL (>250 nmol/L) Platelets bldon 03-15-2022 Platelets (Bld) [#/Vol] 327 10*3/uL 150-450 [facility] Work Phone: Serum or plasma albumin yunior urement (mass/volume)on 03-15-2022 Albumin [Mass/Vol] 2.9 g/dL 3.2-5.0 [facility] Work Phone: Serum or plasma calcium yunior urement (mass/volume)on 03-15-2022 Calcium [Mass/Vol] 8.5 mg/dL 8.5-10.1 [facility] Work Phone: Serum or plasma creatinine m easurement (mass/volume)on 03-15-2022 Creatinine [Mass/Vol] 2.04 mg/dL 0.55-1.02 [facility] Work Phone: Comment on above: The validity of the calculated GFR & GFRAA in patients over 70 years has not been determined. Clinical correlation is essential. Serum or plasma urea nitroge n measurement (mass/volume)on 03-15-2022 Urea nitrogen [Mass/Vol] 15 mg/dL 7-18 [facility] Work Phone: Culture, urineon 02-16-2022 Bacteria identified Cx Nom (U) Mixed Gram Pos & Gram Neg Org [facility] Work Phone: Absolute lymphocyte counton 01-26-2022 Lymphocytes Auto (Unsp spec) [#/Vol] 8.09 10*3/uL 0.83-4.51 [facility] Work Phone: [phone] Basophil percentageon 2021 Basophils/100 WBC (Bld) 0.4 % 0-1 [facility] Work Phone: Chloride [Moles/Vol] 106 mmol/L 98-107 [facility] Work Phone: [phone] Eosinophils/100 WBC (Bld) 0.4 % 0-5 [facility] Work Phone: Glucose [Mass/Vol] 104 mg/dL 74-106 [facility] Work Phone: Comment on above: Fasting Glucose resu lt from 100 to 125 mg/dL suggests IMPAIRED HOMEOSTASIS per A.D.A. criteria. Neutrophils (Bld) [#/Vol] 8.7 10*3/uL 2.0-7.7 [facility] Work Phone: [phone] Neutrophils/100 WBC (Bld) 48.3 % 47-70 [facility] Work Phone: [phone] Potassium [Moles/Vol] 3.5 mmol/L 3.5-5.1 [facility] Work Phone: [phone] Sodium [Moles/Vol] 140 mmol/L 136-145 [facility] Work Phone: [phone] WBC (Bld) [#/Vol] 18.1 10*3/uL 4.4-11.0 [facility] Work Phone: Blood erythrocytes count (nu mber/volume)on 01-26-2022 RBC (Bld) [#/Vol] 4.70 10*6/uL 4.2-5.4 [facility] Work Phone: [phone] Blood hemoglobin measurement (mass/volume)on 01-26-2022 Hemoglobin (Bld) [Mass/Vol] 15.2 g/dL 12.0-15.0 [facility] Work Phone: [phone] Blood lymphocytes/100 leukoc yteson 01-26-2022 Lymphocytes/100 WBC (Bld) 44.7 % 19-41 [facility] Work Phone: Blood manual differential co mment interpretation (narrative result)on 01-26-2022 Manual differential comment Pollo (Bld) [Interp] SCANNED [facility] Work Phone: [phone] Comment on above: LYMPHOCYTOSIS NOTED Blood monocytes/100 leukocyt eson 01-26-2022 Monocytes/100 WBC (Bld) 5.3 % 0-10 [facility] Work Phone: Blood platelet mean volumeon 01-26-2022 Platelet mean volume (Bld) [Entitic vol] 10.3 fL 6.2-12.0 [facility] Work Phone: [phone] Determination of erythrocyte mean corpuscular volume (MCV)on 01-26-2022 MCV (RBC) [Entitic vol] 97.2 fL 81-99 [facility] Work Phone: [phone] Hematocrit Auto (Bld) [Volum e fraction]on 01-26-2022 Hematocrit (Bld) [Volume fraction] 45.7 % 37-47 [facility] Work Phone: Laboratory - Chemistry and C hemistry - challengeon 01-26-2022 CO2 [Moles/Vol] 26.0 mmol/L 21.0-32.0 [facility] Work Phone: Natriuretic peptide B (Bld) [Mass/Vol] 100.1 pg/mL 0-100 [facility] Work Phone: Urea nitrogen/Creatinine [Mass ratio] 13.4 mg/mg 10-20 [facility] Work Phone: Laboratory - Hematology and Cell countson 01-26-2022 Erythrocyte distribution width (RBC) [Entitic vol] 49.8 fL 35.1-43.9 [facility] Work Phone: [phone] Erythrocyte distribution width (RBC) [Ratio] 14.0 % 11.6-14.6 [facility] Work Phone: [phone] Immature granulocytes/100 WBC (Bld) 0.900 % 0.0-0.9 [facility] Work Phone: Comment on above: IG% - Immature Granu locytes (promyelocytes, myelocytes and metamyelocytes) > 1% indicates that a LEFT SHIFT is Present. MCH (RBC) [Entitic mass] 32.3 pg 27.0-32.0 [facility] Work Phone: [phone] Nucleated RBC/100 WBC (Bld) [Ratio] 0 % 0-5 [facility] Work Phone: [phone] MCHC Auto (RBC) [Mass/Vol]on 01-26-2022 MCHC (RBC) [Mass/Vol] 33.3 g/dL 32-36 [facility] Work Phone: No Panel Informationon 01-26 Estimated GFR (MDRD) Amer 34 mL/min >60 [facility] Work Phone: Comment on above: GFR Calc Estimated GFR (MDRD) Non-Af Amer 28 mL/min >60 [facility] Work Phone: Comment on above: Non- GFR Calc Platelets bldon 01-26-2022 Platelets (Bld) [#/Vol] 346 10*3/uL 150-450 [facility] Work Phone: Serum or plasma calcium yunior urement (mass/volume)on 01-26-2022 Calcium [Mass/Vol] 8.5 mg/dL 8.5-10.1 [facility] Work Phone: Serum or plasma creatinine m easurement (mass/volume)on 01-26-2022 Creatinine [Mass/Vol] 1.87 mg/dL 0.55-1.02 [facility] Work Phone: Comment on above: The validity of the calculated GFR & GFRAA in patients over 70 years has not been determined. Clinical correlation is essential. Serum or plasma urea nitroge n measurement (mass/volume)on 01-26-2022 Urea nitrogen [Mass/Vol] 25 mg/dL 7-18 [facility] Work Phone: Thin prep Papanicolaou smear with manual screeningon 01-26-2022 Thin prep Papanicolaou smear with manual screening 8 5-15 [facility] Work Phone: Absolute lymphocyte counton 01-19-2022 Lymphocytes Auto (Unsp spec) [#/Vol] 5.62 10*3/uL 0.83-4.51 [facility] Work Phone: Basophil percentageon 2021 Basophils/100 WBC (Bld) 0.6 % 0-1 [facility] Work Phone: Bilirubin [Mass/Vol] 0.30 mg/dL 0.20-1.00 [facility] Work Phone: [phone] Comment on above: For patients on eltr ombopag therapy, use of Dimension [place] TBIL is not recommended. Chloride [Moles/Vol] 107 mmol/L 98-107 [facility] Work Phone: [phone] Cholesterol [Mass/Vol] 197 mg/dL <200 [facility] Work Phone: Comment on above: <200 mg/dL Desirable 200-240 mg/dL Borderline >240 mg/dL High Risk Eosinophils/100 WBC (Bld) 1.6 % 0-5 [facility] Work Phone: Glucose [Mass/Vol] 92 mg/dL 74-106 [facility] Work Phone: Neutrophils (Bld) [#/Vol] 5.2 10*3/uL 2.0-7.7 [facility] Work Phone: Neutrophils/100 WBC (Bld) 43.8 % 47-70 [facility] Work Phone: Potassium [Moles/Vol] 4.0 mmol/L 3.5-5.1 [facility] Work Phone: Protein [Mass/Vol] 7.9 g/dL 6.4-8.2 [facility] Work Phone: Sodium [Moles/Vol] 138 mmol/L 136-145 [facility] Work Phone: Triglyceride [Mass/Vol] 160 mg/dL <199 [facility] Work Phone: [phone] Comment on above: The drugs N-Acetylcy steine and Metamizole may falsely depress this assay.Serum Triglycerides Reference Interval Normal <150 mg/dL Borderline high 150 - 199 mg/dL High 200 - 499 mg/dL Very High > or = 500 mg/dL WBC (Bld) [#/Vol] 11.9 10*3/uL 4.4-11.0 [facility] Work Phone: Blood erythrocytes count (nu mber/volume)on 01-19-2022 RBC (Bld) [#/Vol] 4.47 10*6/uL 4.2-5.4 [facility] Work Phone: Blood hemoglobin measurement (mass/volume)on 01-19-2022 Hemoglobin (Bld) [Mass/Vol] 14.3 g/dL 12.0-15.0 [facility] Work Phone: Blood lymphocytes/100 leukoc yteson 01-19-2022 Lymphocytes/100 WBC (Bld) 47.3 % 19-41 [facility] Work Phone: Blood manual differential co mment interpretation (narrative result)on 01-19-2022 Manual differential comment Pollo (Bld) [Interp] See comment [facility] Work Phone: Comment on above: LYMPHOCYTOSIS Blood monocytes/100 leukocyt eson 01-19-2022 Monocytes/100 WBC (Bld) 6.2 % 0-10 [facility] Work Phone: Blood platelet mean volumeon 01-19-2022 Platelet mean volume (Bld) [Entitic vol] 10.8 fL 6.2-12.0 [facility] Work Phone: Culture, urineon 01-19-2022 Bacteria identified Cx Nom (U) Mixed Gram Pos & Gram Neg Org [facility] Work Phone: Determination of erythrocyte mean corpuscular volume (MCV)on 01-19-2022 MCV (RBC) [Entitic vol] 100.4 fL 81-99 [facility] Work Phone: Hematocrit Auto (Bld) [Volum e fraction]on 01-19-2022 Hematocrit (Bld) [Volume fraction] 44.9 % 37-47 [facility] Work Phone: Laboratory - Chemistry and C hemistry - challengeon 01-19-2022 ALP [Catalytic activity/Vol] 114 U/L 45-117 [facility] Work Phone: ALT [Catalytic activity/Vol] 19 U/L 13-56 [facility] Work Phone: CO2 [Moles/Vol] 25.0 mmol/L 21.0-32.0 [facility] Work Phone: Globulin (S) [Mass/Vol] 5.2 g/dL 2.2-4.2 [facility] Work Phone: Urea nitrogen/Creatinine [Mass ratio] 12.5 mg/mg 10-20 [facility] Work Phone: Laboratory - Hematology and Cell countson 01-19-2022 Erythrocyte distribution width (RBC) [Entitic vol] 49.8 fL 35.1-43.9 [facility] Work Phone: Erythrocyte distribution width (RBC) [Ratio] 13.6 % 11.6-14.6 [facility] Work Phone: Immature granulocytes/100 WBC (Bld) 0.500 % 0.0-0.9 [facility] Work Phone: Comment on above: IG% - Immature Granu locytes (promyelocytes, myelocytes and metamyelocytes) > 1% indicates that a LEFT SHIFT is Present. MCH (RBC) [Entitic mass] 32.0 pg 27.0-32.0 [facility] Work Phone: Nucleated RBC/100 WBC (Bld) [Ratio] 0 % 0-5 [facility] Work Phone: MCHC Auto (RBC) [Mass/Vol]on 01-19-2022 MCHC (RBC) [Mass/Vol] 31.8 g/dL 32-36 [facility] Work Phone: No Panel Informationon 01-19 Estimated GFR (MDRD) Amer 33 mL/min >60 [facility] Work Phone: Comment on above: GFR Calc Estimated GFR (MDRD) Non-Af Amer 28 mL/min >60 [facility] Work Phone: Comment on above: Non- GFR Calc Thyroid Stimulating Hormone (TSH) 3.68 uIU/mL 0.358-3.74 [facility] Work Phone: Vitamin D 25-Hydroxy 33.2 ng/mL [facility] Work Phone: Comment on above: Vitamin D 25(OH) Sta tus Range Deficiency <20 ng/mL (50nmol/L) Insufficiency 20 - 30 ng/mL (50 - 75 nmol/L) Sufficiency 30 - 100 ng/mL (75 - 250 nmol/L) Toxicity >100 ng/mL (>250 nmol/L) Platelets bldon 01-19-2022 Platelets (Bld) [#/Vol] 378 10*3/uL 150-450 [facility] Work Phone: Serum or plasma albumin yunior urement (mass/volume)on 01-19-2022 Albumin [Mass/Vol] 2.7 g/dL 3.2-5.0 [facility] Work Phone: Serum or plasma albumin/glob ulin mass ratioon 01-19-2022 Albumin/Globulin [Mass ratio] 0.5 {ratio} 0.9-2.4 [facility] Work Phone: Serum or plasma calcium yunior urement (mass/volume)on 01-19-2022 Calcium [Mass/Vol] 8.8 mg/dL 8.5-10.1 [facility] Work Phone: Serum or plasma cholesterol in HDL measurement (mass/volume)on 01-19-2022 Cholesterol in HDL [Mass/Vol] 38 mg/dL >40 [facility] Work Phone: Comment on above: The drugs N-Acetylcy steine and Metamizole may falsely depress this assay. Reference Range HDL <40 mg/dL Low HDL Cholesterol HDL >or= 60 mg/dL High HDL Cholesterol Serum or plasma cholesterol in VLDL measurement (mass/volume)on 01-19-2022 Cholesterol in VLDL [Mass/Vol] 32 mg/dL 5-40 [facility] Work Phone: Serum or plasma creatinine m easurement (mass/volume)on 01-19-2022 Creatinine [Mass/Vol] 1.92 mg/dL 0.55-1.02 [facility] Work Phone: Comment on above: The validity of the calculated GFR & GFRAA in patients over 70 years has not been determined. Clinical correlation is essential. Serum or plasma low density lipoprotein (LDL) cholesterol measurement (mass/volume)on 01-19-2022 Cholesterol in LDL [Mass/Vol] 127 mg/dL 0-130 [facility] Work Phone: Serum or plasma urea nitroge n measurement (mass/volume)on 01-19-2022 Urea nitrogen [Mass/Vol] 24 mg/dL 7-18 [facility] Work Phone: Serum or plasma uric acid me asurement (mass/volume)on 01-19-2022 Urate [Mass/Vol] 5.4 mg/dL 2.6-6.0 [facility] Work Phone: Comment on above: The drugs N-Acetylcy steine and Metamizole may falsely depress this assay. Thin prep Papanicolaou smear with manual screeningon 01-19-2022 Thin prep Papanicolaou smear with manual screening 16 U/L 15-37 [facility] Work Phone: Thin prep Papanicolaou smear with manual screening 6 5-15 [facility] Work Phone: Basophil percentageon 2021 Basophil percentage 3.3 mg/dL 2.5-4.9 [facility] Work Phone: Chloride [Moles/Vol] 104 mmol/L 98-107 [facility] Work Phone: [phone] Glucose [Mass/Vol] 93 mg/dL 74-106 [facility] Work Phone: [phone] Potassium [Moles/Vol] 4.0 mmol/L 3.5-5.1 [facility] Work Phone: Sodium [Moles/Vol] 136 mmol/L 136-145 [facility] Work Phone: WBC (Bld) [#/Vol] 16.7 10*3/uL 4.4-11.0 [facility] Work Phone: Blood erythrocytes count (nu mber/volume)on 12-08-2021 RBC (Bld) [#/Vol] 4.35 10*6/uL 4.2-5.4 [facility] Work Phone: Blood hemoglobin measurement (mass/volume)on 12-08-2021 Hemoglobin (Bld) [Mass/Vol] 13.6 g/dL 12.0-15.0 [facility] Work Phone: Blood platelet mean volumeon 12-08-2021 Platelet mean volume (Bld) [Entitic vol] 10.4 fL 6.2-12.0 [facility] Work Phone: Determination of erythrocyte mean corpuscular volume (MCV)on 12-08-2021 MCV (RBC) [Entitic vol] 100.5 fL 81-99 [facility] Work Phone: Hematocrit Auto (Bld) [Volum e fraction]on 12-08-2021 Hematocrit (Bld) [Volume fraction] 43.7 % 37-47 [facility] Work Phone: Laboratory - Chemistry and C hemistry - challengeon 12-08-2021 CO2 [Moles/Vol] 24.0 mmol/L 21.0-32.0 [facility] Work Phone: Urea nitrogen/Creatinine [Mass ratio] 8.9 mg/mg -20 [facility] Work Phone: Laboratory - Hematology and Cell countson 12-08-2021 Erythrocyte distribution width (RBC) [Entitic vol] 50.1 fL 35.1-43.9 [facility] Work Phone: Erythrocyte distribution width (RBC) [Ratio] 13.4 % 11.6-14.6 [facility] Work Phone: MCH (RBC) [Entitic mass] 31.3 pg 27.0-32.0 [facility] Work Phone: MCHC Auto (RBC) [Mass/Vol]on 12-08-2021 MCHC (RBC) [Mass/Vol] 31.1 g/dL 32-36 [facility] Work Phone: No Panel Informationon 12-08 Estimated GFR (MDRD) Amer 34 mL/min >60 [facility] Work Phone: Comment on above: GFR Calc Estimated GFR (MDRD) Non-Af Amer 28 mL/min >60 [facility] Work Phone: Comment on above: Non- GFR Calc Parathyroid Hormone (Intact) 166.1 pg/mL 18.4-80.1 [facility] Work Phone: Platelets bldon 12-08-2021 Platelets (Bld) [#/Vol] 394 10*3/uL 150-450 [facility] Work Phone: Serum or plasma albumin yunior urement (mass/volume)on 12-08-2021 Albumin [Mass/Vol] 2.7 g/dL 3.2-5.0 [facility] Work Phone: Serum or plasma calcium yunior urement (mass/volume)on 12-08-2021 Calcium [Mass/Vol] 8.8 mg/dL 8.5-10.1 [facility] Work Phone: Serum or plasma creatinine m easurement (mass/volume)on 12-08-2021 Creatinine [Mass/Vol] 1.91 mg/dL 0.55-1.02 [facility] Work Phone: Comment on above: The validity of the calculated GFR & GFRAA in patients over 70 years has not been determined. Clinical correlation is essential. Serum or plasma urea nitroge n measurement (mass/volume)on 12-08-2021 Urea nitrogen [Mass/Vol] 17 mg/dL 7-18 [facility] Work Phone: Culture, urineon 12-06-2021 Bacteria identified Cx Nom (U) Pseudomonas aeroginosa [facility] Work Phone: Bacteria identified Cx Nom (U) Escherichia coli [facility] Work Phone: Basophil percentageon 2021 Chloride [Moles/Vol] 105 mmol/L 98-107 [facility] Work Phone: Glucose [Mass/Vol] 97 mg/dL 74-106 [facility] Work Phone: Comment on above: Please note revised GLUCOSE reference range effective 2017. Potassium [Moles/Vol] 3.8 mmol/L 3.5-5.1 [facility] Work Phone: Sodium [Moles/Vol] 141 mmol/L 136-145 [facility] Work Phone: WBC (Bld) [#/Vol] 15.1 10*3/uL 4.4-11.0 [facility] Work Phone: Blood erythrocytes count (nu mber/volume)on 11-28-2021 RBC (Bld) [#/Vol] 4.55 10*6/uL 4.2-5.4 [facility] Work Phone: Blood hemoglobin measurement (mass/volume)on 11-28-2021 Hemoglobin (Bld) [Mass/Vol] 14.6 g/dL 12.0-15.0 [facility] Work Phone: Blood platelet mean volumeon 11-28-2021 Platelet mean volume (Bld) [Entitic vol] 10.1 fL 6.2-12.0 [facility] Work Phone: Determination of erythrocyte mean corpuscular volume (MCV)on 11-28-2021 MCV (RBC) [Entitic vol] 100.2 fL 81-99 [facility] [place] [facility] Work Phone: Hematocrit Auto (Bld) [Volum e fraction]on 11-28-2021 Hematocrit (Bld) [Volume fraction] 45.6 % 37-47 [facility] Work Phone: Laboratory - Chemistry and C hemistry - challengeon 11-28-2021 CO2 [Moles/Vol] 30.0 mmol/L 21.0-32.0 [facility] Work Phone: Urea nitrogen/Creatinine [Mass ratio] 10.2 mg/mg 10-20 [facility] Work Phone: Laboratory - Hematology and Cell countson 11-28-2021 Erythrocyte distribution width (RBC) [Entitic vol] 50.5 fL 35.1-43.9 [facility] Work Phone: Erythrocyte distribution width (RBC) [Ratio] 13.7 % 11.6-14.6 [facility] Work Phone: MCH (RBC) [Entitic mass] 32.1 pg 27.0-32.0 [facility] Work Phone: MCHC Auto (RBC) [Mass/Vol]on 11-28-2021 MCHC (RBC) [Mass/Vol] 32.0 g/dL 32- [facility] Work Phone: No Panel Informationon 11-28 Estimated GFR (MDRD) Amer 33 mL/min >60 [facility] Work Phone: Comment on above: GFR Calc Estimated GFR (MDRD) Non-Af Amer 27 mL/min >60 [facility] Work Phone: Comment on above: Non- GFR Calc SARS-CoV-2 Antigen (Rapid) [facility] Work Phone: Platelets bldon 11-28-2021 Platelets (Bld) [#/Vol] 340 10*3/uL 150-450 [facility] Work Phone: Serum or plasma calcium yunior urement (mass/volume)on 11-28-2021 Calcium [Mass/Vol] 8.6 mg/dL 8.5-10.1 [facility] Work Phone: Serum or plasma creatinine m easurement (mass/volume)on 11-28-2021 Creatinine [Mass/Vol] 1.96 mg/dL 0.55-1.02 [facility] Work Phone: Comment on above: The validity of the calculated GFR & GFRAA in patients over 70 years has not been determined. Clinical correlation is essential. Serum or plasma urea nitroge n measurement (mass/volume)on 11-28-2021 Urea nitrogen [Mass/Vol] 20 mg/dL 7-18 [facility] Work Phone: Thin prep Papanicolaou smear with manual screeningon 11-28-2021 Thin prep Papanicolaou smear with manual screening 6 5-15 [facility] Work Phone: Absolute lymphocyte counton 11-08-2021 Lymphocytes Auto (Unsp spec) [#/Vol] 6.01 10*3/uL 0.83-4.51 [facility] Work Phone: Basophil percentageon 2020 Bilirubin [Mass/Vol] 0.50 mg/dL 0.20-1.00 [facility] Work Phone: Comment on above: For patients on eltr ombopag therapy, use of Dimension [place] TBIL is not recommended. Chloride [Moles/Vol] 111 mmol/L 98-107 [facility] Work Phone: Cholesterol [Mass/Vol] 183 mg/dL <200 [facility] Work Phone: Comment on above: <200 mg/dL Desirable 200-240 mg/dL Borderline >240 mg/dL High Risk Eosinophils/100 WBC (Bld) 0.1 % 0-5 [facility] Work Phone: Glucose [Mass/Vol] 92 mg/dL 74-106 [facility] Work Phone: Comment on above: Please note revised GLUCOSE reference range effective 2017. Neutrophils (Bld) [#/Vol] 10.1 10*3/uL 2.0-7.7 [facility] Work Phone: Potassium [Moles/Vol] 3.8 mmol/L 3.5-5.1 [facility] Work Phone: Comment on above: Slight Hemolysis, Re sult may be falsely increased. Protein [Mass/Vol] 8.1 g/dL 6.4-8.2 [facility] Work Phone: Sodium [Moles/Vol] 142 mmol/L 136-145 [facility] Work Phone: Triglyceride [Mass/Vol] 122 mg/dL [facility] [place] [facility] Work Phone: Comment on above: The drugs N-Acetylcy steine and Metamizole may falsely depress this assay.Serum Triglycerides Reference Interval Normal <150 mg/dL Borderline high 150 - 199 mg/dL High 200 - 499 mg/dL Very High > or = 500 mg/dL WBC (Bld) [#/Vol] 17.4 10*3/uL 4.4-11.0 [facility] Work Phone: Blood erythrocytes count (nu mber/volume)on 11-08-2021 RBC (Bld) [#/Vol] 4.74 10*6/uL 4.2-5.4 [facility] Work Phone: Blood hemoglobin measurement (mass/volume)on 11-08-2021 Hemoglobin (Bld) [Mass/Vol] 14.9 g/dL 12.0-15.0 [facility] Work Phone: Blood lymphocytes/100 leukoc yteson 11-08-2021 Lymphocytes/100 WBC (Bld) 34.5 % 19-41 [facility] Work Phone: Blood manual differential co mment interpretation (narrative result)on 11-08-2021 Manual differential comment Pollo (Bld) [Interp] SEE COMMENT [facility] Work Phone: Comment on above: LYMPHOCYTOSIS NOTED Blood monocytes/100 leukocyt eson 11-08-2021 Monocytes/100 WBC (Bld) 4.8 % 0-10 [facility] [place] [facility] Work Phone: Blood platelet adequacy dete ction by light microscopyon 11-08-2021 Platelets LM Ql (Bld) SLT INC ADEQ [facility] Work Phone: Blood platelet mean volumeon 11-08-2021 Platelet mean volume (Bld) [Entitic vol] 10.5 fL 6.2-12.0 [facility] Work Phone: Determination of erythrocyte mean corpuscular volume (MCV)on 11-08-2021 MCV (RBC) [Entitic vol] 98.1 fL 81-99 [facility] [place] [facility] Work Phone: [phone] Hematocrit Auto (Bld) [Volum e fraction]on 11-08-2021 Hematocrit (Bld) [Volume fraction] 46.5 % 37-47 [facility] Work Phone: Laboratory - Chemistry and C hemistry - challengeon 11-08-2021 ALP [Catalytic activity/Vol] 107 U/L 45-117 [facility] Work Phone: ALT [Catalytic activity/Vol] 44 U/L 13-56 [facility] Work Phone: CO2 [Moles/Vol] 24.0 mmol/L 21.0-32.0 [facility] Work Phone: Globulin (S) [Mass/Vol] 5.5 g/dL 2.2-4.2 [facility] [place] [facility] Work Phone: [phone] Urea nitrogen/Creatinine [Mass ratio] 13.6 mg/mg 10-20 [facility] Work Phone: Laboratory - Hematology and Cell countson 11-08-2021 Anisocytosis Ql (Bld) RARE [facility] Work Phone: Basophils/100 WBC (Unsp spec) 0.6 % 0-1 [facility] Work Phone: [phone] Erythrocyte distribution width (RBC) [Entitic vol] 51.4 fL 35.1-43.9 [facility] Work Phone: Erythrocyte distribution width (RBC) [Ratio] 14.2 % 11.6-14.6 [facility] Work Phone: Immature granulocytes/100 WBC (Bld) 2.000 % 0.0-0.9 [facility] Work Phone: Comment on above: IG% - Immature Granu locytes (promyelocytes, myelocytes and metamyelocytes) > 1% indicates that a LEFT SHIFT is Present. MCH (RBC) [Entitic mass] 31.4 pg 27.0-32.0 [facility] Work Phone: Neutrophils/100 WBC (Bld) 58.0 % 47-70 [facility] Work Phone: Nucleated RBC/100 WBC (Bld) [Ratio] 0 % 0-5 [facility] Work Phone: MCHC Auto (RBC) [Mass/Vol]on 11-08-2021 MCHC (RBC) [Mass/Vol] 32.0 g/dL 32-36 [facility] Work Phone: Macrocytes detectionon 11-08 Macrocytes Ql (Bld) RARE [facility] Work Phone: No Panel Informationon 11-08 Atypical Lymphocytes 2+ % [facility] Work Phone: Estimated GFR (MDRD) Amer 34 mL/min >60 [facility] Work Phone: Comment on above: GFR Calc Estimated GFR (MDRD) Non-Af Amer 28 mL/min >60 [facility] Work Phone: Comment on above: Non- GFR Calc Thyroid Stimulating Hormone (TSH) 1.06 uIU/mL 0.358-3.74 [facility] Work Phone: Vitamin D 25-Hydroxy 36.3 ng/mL [facility] Work Phone: Comment on above: Vitamin D 25(OH) Sta tus Range Deficiency <20 ng/mL (50nmol/L) Insufficiency 20 - 30 ng/mL (50 - 75 nmol/L) Sufficiency 30 - 100 ng/mL (75 - 250 nmol/L) Toxicity >100 ng/mL (>250 nmol/L) Platelets bldon 11-08-2021 Platelets (Bld) [#/Vol] 408 10*3/uL 150-450 [facility] Work Phone: RBC morphologyon 11-08-2021 RBC morphology finding Nom (Bld) N CHROM NORMAL NORM C&C [facility] Work Phone: Review by pathologiston 10-20 Pathologist review Pollo (Unsp spec) [Interp] Reviewed [facility] Work Phone: Comment on above: Previous reported re sult: Denisse alcala Edited by: KRISTINA on 11/10/21:0937Neutrophilic leukocytosis.Clinical correlation suggested.Albaro Au D.O. 11/10/21 AMENDED REPORT 11/10/21 1077 PATH REV previously reported as: March foll Serum or plasma albumin yunior urement (mass/volume)on 11-08-2021 Albumin [Mass/Vol] 2.6 g/dL 3.2-5.0 [facility] Work Phone: Serum or plasma albumin/glob ulin mass ratioon 11-08-2021 Albumin/Globulin [Mass ratio] 0.5 {ratio} 0.9-2.4 [facility] Work Phone: Serum or plasma calcium yunior urement (mass/volume)on 11-08-2021 Calcium [Mass/Vol] 8.5 mg/dL 8.5-10.1 [facility] Work Phone: Serum or plasma cholesterol in HDL measurement (mass/volume)on 11-08-2021 Cholesterol in HDL [Mass/Vol] 39 mg/dL [facility] Work Phone: Comment on above: The drugs N-Acetylcy steine and Metamizole may falsely depress this assay. Reference Range HDL <40 mg/dL Low HDL Cholesterol HDL >or= 60 mg/dL High HDL Cholesterol Serum or plasma cholesterol in VLDL measurement (mass/volume)on 11-08-2021 Cholesterol in VLDL [Mass/Vol] 24 mg/dL 5-40 [facility] Work Phone: Serum or plasma creatinine m easurement (mass/volume)on 11-08-2021 Creatinine [Mass/Vol] 1.91 mg/dL 0.55-1.02 [facility] Work Phone: Comment on above: The validity of the calculated GFR & GFRAA in patients over 70 years has not been determined. Clinical correlation is essential. Serum or plasma low density lipoprotein (LDL) cholesterol measurement (mass/volume)on 11-08-2021 Cholesterol in LDL [Mass/Vol] 120 mg/dL 0-130 [facility] Work Phone: Serum or plasma urea nitroge n measurement (mass/volume)on 11-08-2021 Urea nitrogen [Mass/Vol] 26 mg/dL 7-18 [facility] Work Phone: Thin prep Papanicolaou smear with manual screeningon 11-08-2021 Thin prep Papanicolaou smear with manual screening 16 U/L 15-37 [facility] Work Phone: Comment on above: Slight Hemolysis, Re sult may be falsely increased. Thin prep Papanicolaou smear with manual screening 7 5-15 [facility] Work Phone: Laboratory - Microbiology an d Antimicrobial susceptibilityon 11-01-2021 SARS-CoV-2 (COVID-19) RNA BOBBI+probe Ql (Unsp spec) Not detected Not Detect [facility] Work Phone: Comment on above: Normal Reference Ran ge: Not DetectedMethod:(RT-PCR) real-time reverse transcriptase PCRLuminex DAILY Instrument*The Food and Drug Administration (FDA) has issued an Emergency Use Authorization (EAU) for the DAILY SARS-CoV-2 Assay for the rapid detection of the virus that causes COVID-19. This test has been validated, but the FDAs independent review of this validation is pending.*Negative results do not preclude infection and should not be used as the sole basis for treatment or patient management. Optimum specimen types and timing for peak viral levels during infections caused by SARS-CoV-2 have not been determined. Collection of multiple specimens from the same patient may be necessary to detect the virus. The possibility of a false negative result should be considered if the patient has clinical presentation or has had recent exposure. Basophil percentageon 2020 Chloride [Moles/Vol] 106 mmol/L 98-107 [facility] Work Phone: Glucose [Mass/Vol] 85 mg/dL 74-106 [facility] Work Phone: Comment on above: Please note revised GLUCOSE reference range effective 2017. Potassium [Moles/Vol] 3.7 mmol/L 3.5-5.1 [facility] Work Phone: [phone] Sodium [Moles/Vol] 141 mmol/L 136-145 [facility] Work Phone: WBC (Bld) [#/Vol] 13.5 10*3/uL 4.4-11.0 [facility]: [phone] Blood erythrocytes count (nu mber/volume)on 10-24-2021 RBC (Bld) [#/Vol] 4.48 10*6/uL 4.2-5.4 [facility] Work Phone: Blood hemoglobin measurement (mass/volume)on 10-24-2021 Hemoglobin (Bld) [Mass/Vol] 14.1 g/dL 12.0-15.0 [facility] Work Phone: Blood platelet mean volumeon 10-24-2021 Platelet mean volume (Bld) [Entitic vol] 10.8 fL 6.2-12.0 [facility] Work Phone: Determination of erythrocyte mean corpuscular volume (MCV)on 10-24-2021 MCV (RBC) [Entitic vol] 98.7 fL 81-99 [facility] [place] [facility] Work Phone: Hematocrit Auto (Bld) [Volum e fraction]on 10-24-2021 Hematocrit (Bld) [Volume fraction] 44.2 % 37-47 [facility] Work Phone: Laboratory - Chemistry and C hemistry - challengeon 10-24-2021 CO2 [Moles/Vol] 25.0 mmol/L 21.0-32.0 [facility] Work Phone: Urea nitrogen/Creatinine [Mass ratio] 12.9 mg/mg 10-20 [facility] Work Phone: Laboratory - Hematology and Cell countson 10-24-2021 Erythrocyte distribution width (RBC) [Entitic vol] 52.3 fL 35.1-43.9 [facility] Work Phone: Erythrocyte distribution width (RBC) [Ratio] 14.4 % 11.6-14.6 [facility] Work Phone: MCH (RBC) [Entitic mass] 31.5 pg 27.0-32.0 [facility] Work Phone: MCHC Auto (RBC) [Mass/Vol]on 10-24-2021 MCHC (RBC) [Mass/Vol] 31.9 g/dL 32-36 [facility] Work Phone: No Panel Informationon 10-24 Estimated GFR (MDRD) Amer 35 mL/min >60 [facility] Work Phone: Comment on above: GFR Calc Estimated GFR (MDRD) Non-Af Amer 29 mL/min >60 [facility] Work Phone: Comment on above: Non- GFR Calc Platelets bldon 10-24-2021 Platelets (Bld) [#/Vol] 334 10*3/uL 150-450 [facility] Work Phone: Serum or plasma calcium yunior urement (mass/volume)on 10-24-2021 Calcium [Mass/Vol] 8.7 mg/dL 8.5-10.1 [facility] Work Phone: Serum or plasma creatinine m easurement (mass/volume)on 10-24-2021 Creatinine [Mass/Vol] 1.86 mg/dL 0.55-1.02 [facility] Work Phone: Comment on above: The validity of the calculated GFR & GFRAA in patients over 70 years has not been determined. Clinical correlation is essential. Serum or plasma urea nitroge n measurement (mass/volume)on 10-24-2021 Urea nitrogen [Mass/Vol] 24 mg/dL 7-18 [facility] Work Phone: Thin prep Papanicolaou smear with manual screeningon 10-24-2021 Thin prep Papanicolaou smear with manual screening 10 5-15 [facility] Work Phone: Albumin Elph [Mass/Vol]on Albumin [Mass/Vol] 3.3 g/dL 2.9-4.4 [facility] Work Phone: Blood platelet adequacy dete ction by light microscopyon 05-31-2021 Platelets LM Ql (Bld) ADEQUATE ADEQ [facility] Interpretation of serum or p lasma protein pattern by immunofixation (narrative resulton 05-31-2021 Protein Fractions Immunofixation Pollo [Interp] See comment [facility] Work Phone: Comment on above: Due to the small leah ntity of monoclonal protein, unable toquantitate the M-spike. Laboratory - Hematology and Cell countson 05-31-2021 Anisocytosis Ql (Bld) 1+ [facility] Macrocytes detectionon 05-31 Macrocytes Ql (Bld) 1+ [facility] No Panel Informationon 05-31 Addendum Document Comment . [facility] Work Phone: Comment on above: Protein electrophore sis scan will follow via computer,mail, or press operator helper delivery.Performed at: [address] Director: Gaudencio Alexandre PhD, Phone: [phone] Atypical Lymphocytes 1+ % [facility] Miscellaneous Test See comment [facility] Comment on above: TEST RESULT UNITS RE F INTERVALCLL FISH PanelSpecimen Type Comment: BLOODCells Counted Comment: 100/PROBECells Analyzed Comment: 100/PROBEFISH Result Comment: NORMAL CLL PANELInterpretation Comment: The CLL interphase fluorescence in situ hybridization(FISH) panel analysis was normal. There were no cells withCCND1-IGH fusion. No extra signals or deletions of DUNCAN,chromosome 12, 13q, or TP53 were observed. SPECIFIC FISH RESULTS: CCND1/IGH: NORMAL . nuc edgar 11q13(VFZS0m7),14q32(IGHx2)[100] DUNCAN: NORMAL nuc edgar 11q22.3(ATMx2)[100] . 12cen: NORMAL . nuc edgar 12cen([id number])[100] . 13q: NORMAL . nuc edgar 13q14.3(DLEUx2),13q34(DMXS8v3)[100] . TP53: NORMAL . nuc edgar 17p13.1(TP53x2)[100] This analysis is limited to abnormalities detectableby the specific probes included in the study. FISH resultsshould be interpreted within the context of a fullcytogenetic analysis and hematologic evaluation. REFERENCES:. [place],(2013) Adv Exp Med Biol 792:193-214.PMID#[id number] . Valerie et al.,(2011) Clin Lab Med31:649-658.PMID#[id number] This test was developed and its performacecharacteristics determined by [employer] ([employer]). It has not been cleared orapproved by the U.S. Food and Drug Administration. The DNAprobe vendor for this study was [employer] ([employer]).Director Review: Comment:JOSEPHINE AHUJA, PHD TESTING PERFORMED AT [employer]. ORIGINAL REPORT ON FILE IN LAB CONTAINS ADDITIONAL TEST SITE INFORMATION. 1+ % [facility] 1+ [facility] See comment [facility] RBC morphologyon 05-31-2021 RBC morphology finding Nom (Bld) N CHROM NORMAL NORM C&C [facility] Review by pathologiston 05-19 Pathologist review Pollo (Unsp spec) [Interp] Reviewed [facility] Comment on above: Previous reported re sult: Denisse alcala Edited by: KRISTINA on 06/01/21:1340Leukocytosis and macrocytosis.Clinical correlation necessary.Nikolas Clark M.D. 06/01/21 AMENDED REPORT 06/01/21 1340 PATH REV previously reported as: Denisse alcala Serum [id number] measu rement by electrophoresison 05-31-2021 Alpha 1 globulin Elph [Mass/Vol] 0.3 g/dL 0.0-0.4 [facility] Work Phone: Alpha 1 globulin Elph [Mass/Vol] 1.1 g/dL 0.4-1.0 [facility] Work Phone: Serum or plasma IgA measurem ent (mass/volume)on 05-31-2021 IgA [Mass/Vol] 1001 mg/dL 87-352 [facility] Work Phone: Comment on above: Results confirmed on dilution. Serum or plasma IgG measurem ent (mass/volume)on 05-31-2021 IgG [Mass/Vol] 1843 mg/dL [phone] [facility] Work Phone: Serum or plasma IgM measurem ent (mass/volume)on 05-31-2021 IgM [Mass/Vol] 124 mg/dL 26-217 [facility] Work Phone: Serum or plasma beta globuli n measurement by electrophoresis (mass/volume)on 05-31-2021 Beta globulin Elph [Mass/Vol] 1.4 g/dL 0.7-1.3 [facility] Work Phone: Serum or plasma gamma globul in measurement by electrophoresis (mass/volume)on 05-31-2021 Gamma globulin Elph [Mass/Vol] 2.3 g/dL 0.4-1.8 [facility] Work Phone: Serum or plasma immunoelectr ophoresis interpretation (nominal result)on 05-31-2021 Interpretation IEP [Interp] Comment . [facility] Work Phone: Comment on above: Immunofixation shows IgM monoclonal protein with kappalight chain specificity.Lambda appears asymmetrical. Thin prep Papanicolaou smear with manual screeningon 05-31-2021 Thin prep Papanicolaou smear with manual screening 0.7 0.7-1.7 [facility] Work Phone: Total protein bloodon 2020 Protein [Mass/Vol] 8.3 g/dL 6.0-8.5 [facility] Work Phone: Hemogram/Diffon 06-12-2018 CBC Interp. See below Normal [facility] [place] [facility] Comment on above: Performed By: #### C BCD1 ####[place] [address] Interpreted by See below Normal [facility] [place] [facility] Comment on above: Result Comment: Trudy Small M.D., PathologistMild absolute lymphocytosis. If this finding is sustained orclinically unexplained, immunophenotyping by flow cytometrymay be useful. Performed By: #### C BCD1 ####[place] [address] CHEST 2 VIEWSon 06-11-2018 Protein mass conc Performed at [facility] APPROVED BY: Sean Frausto MD EXAMINATION: CHEST RADIOGRAPH (2 VIEW FRONTAL & LATERAL) Clinical History: Lightheadedness. Near syncopal episodeM: [id number]: None RESULT: Lines, tubes, and devices: None. Lungs and pleura: No consolidation. No lung mass. No pleural effusion. Cardiomediastinal silhouette: Normal cardiomediastinal silhouette. Other: No acute bony abnormality is seen IMPRESSION: No acute radiographic abnormality. Normal [facility] [place] [facility] Comprehensive Panelon 2017 ALP enzyme act/vol 96 U/L Normal 46-116 [facility] [place] [facility] Comment on above: Performed By: #### P 14 ####[place] [address] ALT enzyme act/vol 17 U/L Normal 12-78 [facility] [place] [facility] Comment on above: Performed By: #### P 14 ####[facility] [place] [address] Protein mass conc 8.1 g/dL Normal 6.4-8.2 [facility] [place] [facility] Comment on above: Performed By: #### P 14 ####[place] [address] Bilirubin mass conc 0.4 mg/dL Normal 0.2-1.0 [facility] [place] [facility] Comment on above: Performed By: #### P 14 ####[place] [address] AST enzyme act/vol 8 U/L Low 9-37 [facility] [place] [facility] Comment on above: Performed By: #### P 14 ####[facility] [place], [place] [address] Creatinine mass conc 0.89 mg/dL Normal 0.51-0.95 [facility] Comment on above: Performed By: #### P 14 ####[facility] [place], [place] [address] Glucose mass conc 99 mg/dL Normal 70-99 [facility] [place] [facility] Comment on above: Performed By: #### P 14 ####[facility] [place], [place] [address] Albumin mass conc 3.2 g/dL Low 3.4-5.0 [facility] [place] [facility] Comment on above: Performed By: #### P 14 ####[address] [address] Urea nitrogen mass conc 8 mg/dL Normal 7-18 [facility] Comment on above: Performed By: #### P 14 ####[address] [address] Anion gap 3 molar conc 11 mmol/L Normal 8-16 [facility] Comment on above: Performed By: #### P 14 ####[address] [address] Calcium mass conc 8.8 mg/dL Normal 8.5-10.1 [facility] [place] [facility] Comment on above: Performed By: #### P 14 ####[address] [address] CO2 molar conc 28 mmol/L Normal 21-32 [facility] [place] [facility] Comment on above: Performed By: #### P 14 ####[address] [address] Chloride molar conc 105 mmol/L Normal 98-107 [facility] [place] [facility] Comment on above: Performed By: #### P 14 ####[address] [address] Potassium molar conc 3.8 mmol/L Normal 3.5-5.1 [facility] Comment on above: Performed By: #### P 14 ####[place] [address] Sodium molar conc 140 mmol/L Normal 136-145 [facility] [place] [facility] Comment on above: Performed By: #### P 14 ####[place] [address] [facility] Troponin Ion 06-11-2018 Troponin I.cardiac mass conc ng/mL Normal 0.015-0.04 5 [facility] [place] [facility] Comment on above: Performed By: #### E RTRP ####[place] [address] Hemogram/Diffon 06-11-2018 Abs Immature Grans 0.11 thou/cmm High 0.00-0.05 [facility] Comment on above: Performed By: #### C BCD1 ####[place] [address] Abs. Baso 0.06 thou/cmm Normal 0.01-0.08 [facility] [place] [facility] Comment on above: Result Comment: Smea r scanned; tech agrees with automated differential Performed By: #### C BCD1 ####[place] [address] Abs. Brooks 0.91 thou/cmm High 0.27-0.70 [facility] [place] [facility] Comment on above: Performed By: #### C BCD1 ####[place] [address] Abs. Neut (ANC) 8.83 thou/cmm High 1.56-6.13 [facility] [place] [facility] Comment on above: Performed By: #### C BCD1 ####[place] [address] Basophils/100 WBC Auto (Bld) 0.4 % Normal [facility] [place] [facility] Comment on above: Performed By: #### C BCD1 ####[place] [address] Eosinophils Auto #/vol (Bld) 0.08 thou/cmm Normal 0.00-0.31 [facility] [place] [facility] Comment on above: Performed By: #### C BCD1 ####[facility] [place], [place] [address] Eosinophils/100 WBC Auto (Bld) 0.5 % Normal [facility] [place] [facility] Comment on above: Performed By: #### C BCD1 ####[address] [address] Immature Grans 0.70 % Normal [facility] [place] [facility] Comment on above: Performed By: #### C BCD1 ####[address] [address] Lymphocytes Auto #/vol (Bld) 5.37 thou/cmm High 1.18-3.74 [facility] [place] [facility] Comment on above: Performed By: #### C BCD1 ####[address] [address] Lymphocytes/100 WBC Auto (Bld) 35.0 % Normal [facility] [place] [facility] Comment on above: Performed By: #### C BCD1 ####[address] [address] Monocytes/100 WBC Auto (Bld) 5.9 % Normal [facility] [place] [facility] Comment on above: Performed By: #### C BCD1 ####[address] [address] Seg Neutrophil 57.5 % Normal [facility] [place] [facility] Comment on above: Performed By: #### C BCD1 ####[address] [address] Erythrocyte distribution width Auto Ratio (RBC) 13.5 % Normal 11.7-14.4 [facility] [place] [facility] Comment on above: Performed By: #### C BCD1 ####[address] [address] Hematocrit Auto Volume Fraction (Bld) 42.8 % Normal 34.1-44.9 [facility] [place] [facility] Comment on above: Performed By: #### C BCD1 ####[address] [address] Hemoglobin mass conc (Bld) 14.4 g/dL Normal 11.2-15.7 [facility] [place] [facility] Comment on above: Performed By: #### C BCD1 ####[facility] [place] [address] MCH Auto Entitic mass (RBC) 31.8 pg Normal 25.6-32.2 [facility] [place] [facility] Comment on above: Performed By: #### C BCD1 ####[place] [address] MCHC Auto mass conc (RBC) 33.6 % Normal 31.6-34.8 [facility] [place] [facility] Comment on above: Performed By: #### C BCD1 ####[place] [address] MCV Auto Entitic volume (RBC) 94.5 fL Normal 79.4-94.8 [facility] [place] [facility] Comment on above: Performed By: #### C BCD1 ####[place] [address] Platelet mean volume Auto Entitic volume (Bld) 10.4 fL Normal 9.4-12.3 [facility] [place] [facility] Comment on above: Performed By: #### C BCD1 ####[place] [address] Platelets Auto #/vol (Bld) 389 thou/cmm High 182-369 [facility] [place] [facility] Comment on above: Performed By: #### C BCD1 ####[place] [address] RBC Auto #/vol (Bld) 4.53 mil/cmm Normal 3.93-5.22 [facility] Comment on above: Performed By: #### C BCD1 ####[place] [address] RDW SD 47.0 fl High 36.4-46.3 [facility] [place] [facility] Comment on above: Performed By: #### C BCD1 ####[place] [address] WBC Auto #/vol (Bld) 15.35 thou/cmm High 3.98-10.04 [facility] [place] [facility] Comment on above: Performed By: #### C BCD1 ####[place] [address] MDRD GFRon 06-11-2018 GFR/1.73 sq M predicted among non-blacks MDRD vol rate/area (S/P/Bld) mL/min/{1.73_m2} Normal >60mL/min/ 1.73m2 [facility] [place] [facility] Comment on above: Result Comment: If t he patient is , multiply the result by 1.210. Performed By: #### G FR ####[place] [address] Urinalysis Routineon 018 Bacteria LM.HPF #/area (Urine sed) NONE Normal None [facility] [place] [facility] Comment on above: Performed By: #### U RIN2 ####[place] [address] Ep Cells Urine 0.6 /hpf Normal 0.0-5.0 [facility] [place] [facility] Comment on above: Performed By: #### U RIN2 ####[place] [address] Hyaline Cast 0.4 /lpf Normal 0.0-1.0 [facility] [place] [facility] Comment on above: Performed By: #### U RIN2 ####[place] [address] RBC,Urine 4.8 /hpf Normal 0.0-5.0 [facility] [place] [facility] Comment on above: Performed By: #### U RIN2 ####[place] [address] WBC, Urine 184.3 /hpf High 0.0-5.0 [facility] [place] [facility] Comment on above: Performed By: #### U RIN2 ####[place] [address] Appearance Nom (U) CLOUDY Normal [facility] [place] [facility] Comment on above: Performed By: #### U RIN2 ####[place] [address] Bilirubin Urine Negative Normal Negative [facility] [place] [facility] Comment on above: Performed By: #### U RIN2 ####[place] [address] Color Nom (U) YELLOW Normal [facility] [place] [facility] Comment on above: Performed By: #### U RIN2 ####[facility] [place], [place] [address] Glucose Ql (U) Negative Normal Negative [facility] [place] [facility] Comment on above: Performed By: #### U RIN2 ####[place] [address] Hemoglobin,Urine MODERATE Abnormal Negative [facility] [place] [facility] Comment on above: Performed By: #### U RIN2 ####[place] [address] Ketone Urine Negative Normal Negative [facility] [place] [facility] Comment on above: Performed By: #### U RIN2 ####[place] [address] Leukocytes Esterase LARGE Abnormal Negative [facility] [place] [facility] Comment on above: Performed By: #### U RIN2 ####[place] [address] Nitrites Urine Negative Normal Negative [facility] [place] [facility] Comment on above: Performed By: #### U RIN2 ####[place] [address] pH Test strip (U) 7.0 [pH] Normal 5.0-8.0 [facility] [place] [facility] Comment on above: Performed By: #### U RIN2 ####[place] [address] Protein Urine Negative Normal Negative [facility] [place] [facility] Comment on above: Performed By: #### U RIN2 ####[place] [address] Specific [place], Ur 1.005 Normal 1.005-1 .03 0 [facility] [place] [facility] Comment on above: Performed By: #### U RIN2 ####[place] [address] Urobilinogen,Ur 0.2 EU/dL Normal 0.0-1.0 [facility] [place] [facility] Comment on above: Performed By: #### U RIN2 ####[place] [address] Clostridium difficile detect ion by polymerase chain reaction C. difficile DNA BOBBI+probe Ql (Unsp spec) [facility] Work Phone: Culture, urine Bacteria identified Cx Nom (U) Mixed Gram Pos & Gram Neg Org [facility] Work Phone: Bacteria identified Cx Nom (U) Pseudomonas aeroginosa [facility] Work Phone: Bacteria identified Cx Nom (U) Positive [facility] Work Phone: Influenza virus A and B and SARS-CoV-2 (COVID-19) Ag panel - Upper respiratory specim SARS-CoV-2 (COVID-19) RNA BOBBI+probe Ql (Resp) [facility] Work Phone: Laboratory - Microbiology an d Antimicrobial susceptibility Bacteria identified Cx Nom (Bld) No growth in 5 days. [facility] Work Phone: No Panel Information Influenza Types A,B Direct FA (LEVI) [facility] Work Phone: SARS-CoV-2 & FLU Antigen (Rapid) [facility] Work Phone: RSV Ag EIA RSV Ag Immune stain Ql (Tiss) [facility] Work Phone: Vital Signs Date Time Vital Sign Value Performing Clinician Facility 03-03-2025 11:11-0400 Body temperature 98.6 [degF] Dr. Gerardo García MD Work Phone: [facility] 03-03-2025 11:11-0400 Body weight 80.[address] Gerardo García MD Work Phone: [facility] 03-03-2025 11:11-0400 Diastolic blood pressure 82 mm[Hg] Dr. Gerardo García MD Work Phone: [facility] 03-03-2025 11:11-0400 Heart rate 106 /min Dr. Gerardo García MD Work Phone: [facility] 03-03-2025 11:11-0400 Respiratory rate 16 /min Dr. Gerardo García MD Work Phone: [facility] 03-03-2025 11:11-0400 SaO2% (BldA) [Mass fraction] 97 % Dr. Gerardo García MD Work Phone: [facility] 03-03-2025 11:11-0400 Systolic blood pressure 158 mm[Hg] Dr. Gerardo García MD Work Phone: [facility] 01-26-2025 15:01-0400 Diastolic blood pressure 100 mm[Hg] Injection/[facility] 01-26-2025 15:01-0400 Heart rate 109 /min Injection/[facility] 01-26-2025 15:01-0400 Respiratory rate 20 /min Injection/[facility] 01-26-2025 15:01-0400 SaO2% (BldA) [Mass fraction] 95 % Injection/[facility] 01-26-2025 15:01-0400 Systolic blood pressure 159 mm[Hg] Injection/[facility] 09-29-2024 11:21-0500 Diastolic blood pressure 68 mm[Hg] Ghulam Miguel DO Work Phone: [facility] 09-29-2024 11:21-0500 Heart rate 105 /min Ghulam Miguel DO Work Phone: [facility] 09-29-2024 11:21-0500 Respiratory rate 20 /min Ghulam Miguel DO Work Phone: [facility] Comment on above: on 09-29-2024 11:21-0500 SaO2% (BldA) [Mass fraction] 97 % Ghulam Miguel DO Work Phone: [facility] 09-29-2024 11:21-0500 Systolic blood pressure 147 mm[Hg] Ghulam Miguel DO Work Phone: [facility] 03-18-2024 16:02-0400 Diastolic blood pressure 90 mm[Hg] Rocío Palmer MD, MD Work Phone: [facility] 03-18-2024 16:02-0400 Heart rate 102 /min Rocío Palmer MD, MD Work Phone: [facility] 03-18-2024 16:02-0400 SaO2% (BldA) [Mass fraction] 98 % Rocío Palmer MD, MD Work Phone: [facility] 03-18-2024 16:02-0400 Systolic blood pressure 166 mm[Hg] Rocío Palmer MD, MD Work Phone: [facility] 02-17-2024 11:15-0400 Body temperature 98.2 [degF] Dr. Gerardo García Work Phone: [facility] 02-17-2024 11:15-0400 Diastolic blood pressure 74 mm[Hg] Dr. Gerardo García Work Phone: [facility] 02-17-2024 11:15-0400 Heart rate 72 /min Dr. Gerardo García Work Phone: [facility] 02-17-2024 11:15-0400 Respiratory rate 18 /min Dr. Gerardo García Work Phone: [facility] 02-17-2024 11:15-0400 SaO2% (BldA) [Mass fraction] 98 % Dr. Gerardo García Work Phone: [facility] 02-17-2024 11:15-0400 Systolic blood pressure 140 mm[Hg] Dr. Gerardo García Work Phone: [facility] 02-17-2024 05:54-0400 Body mass index (BMI) [Ratio] 25.9 kg/m2 Dr. Gerardo García Work Phone: [facility] 02-17-2024 05:54-0400 Body weight 77.[address] Gerardo García Work Phone: [facility] 02-14-2024 20:45-0400 Body height 172.[address] Gerardo García Work Phone: [facility] 02-14-2024 20:00-0400 Body temperature 98.6 [degF] Dr. Gerardo García Work Phone: [facility] 02-14-2024 20:00-0400 Diastolic blood pressure 74 mm[Hg] Dr. Gerardo García Work Phone: [facility] 02-14-2024 20:00-0400 Heart rate 103 /min Dr. Gerardo García Work Phone: [facility] 02-14-2024 20:00-0400 Respiratory rate 17 /min Dr. Gerardo Gacría Work Phone: [facility] 02-14-2024 20:00-0400 SaO2% (BldA) [Mass fraction] 96 % Dr. Gerardo García Work Phone: [facility] 02-14-2024 20:00-0400 Systolic blood pressure 121 mm[Hg] Dr. Gerardo García Work Phone: [facility] 02-14-2024 17:00-0400 Body mass index (BMI) [Ratio] 23.6 kg/m2 Dr. Gerardo García Work Phone: [facility] 02-14-2024 17:00-0400 Body weight 70.[address] Gerardo García Work Phone: [facility] 01-10-2024 11:39-0500 Body temperature 98.1 [degF] Breann Woods RN Work Phone: [facility] 01-10-2024 11:39-0500 Diastolic blood pressure 80 mm[Hg] Breann Woods RN Work Phone: [facility] 01-10-2024 11:39-0500 Heart rate 100 /min Breann Woosd RN Work Phone: [facility] 01-10-2024 11:39-0500 Respiratory rate 18 /min Breann Woods RN Work Phone: [facility] 01-10-2024 11:39-0500 SaO2% (BldA) [Mass fraction] 98 % Breann Woods RN Work Phone: [facility] 01-10-2024 11:39-0500 Systolic blood pressure 126 mm[Hg] Breann Woods RN Work Phone: [facility] 01-03-2024 14:40-0500 Body temperature 98.1 [degF] Breann Woods RN Work Phone: [facility] 01-03-2024 14:40-0500 Diastolic blood pressure 70 mm[Hg] Breann Woods RN Work Phone: [facility] 01-03-2024 14:40-0500 Heart rate 78 /min Breann Woods RN Work Phone: [facility] 01-03-2024 14:40-0500 Respiratory rate 18 /min Breann Grage RN Work Phone: [facility] 01-03-2024 14:40-0500 SaO2% (BldA) [Mass fraction] 98 % Breannmaris Woods RN Work Phone: [facility] 01-03-2024 14:40-0500 Systolic blood pressure 124 mm[Hg] Breann Woods RN Work Phone: [facility] 01-01-2024 11:16-0500 Body temperature 97 [degF] Jose L Patel MD, MD Work Phone: [facility] 01-01-2024 11:16-0500 Respiratory rate 17 /min Jose L Patel MD, MD Work Phone: [facility] 12-27-2023 16:25-0500 Body temperature 98.4 [degF] Breann Woods RN Work Phone: [facility] 12-27-2023 16:25-0500 Diastolic blood pressure 86 mm[Hg] Breann Woods RN Work Phone: [facility] 12-27-2023 16:25-0500 Heart rate 100 /min Breann Woods RN Work Phone: [facility] 12-27-2023 16:25-0500 Respiratory rate 18 /min Breann Woods RN Work Phone: [facility] 12-27-2023 16:25-0500 SaO2% (BldA) [Mass fraction] 99 % Breann Woods RN Work Phone: [facility] 12-27-2023 16:25-0500 Systolic blood pressure 128 mm[Hg] Breann Woods RN Work Phone: [facility] 12-24-2023 15:35-0500 Body height 172.7 cm Jin Antonio MD Work Phone: [facility] 12-24-2023 15:35-0500 Body weight 74.84 kg Jin Antonio MD Work Phone: [facility] 12-24-2023 15:35-0500 Respiratory rate 16 /min Jin Antonio MD Work Phone: [facility] 12-20-2023 13:26-0500 Diastolic blood pressure 86 mm[Hg] Joey Strange RN Work Phone: [facility] 12-20-2023 13:26-0500 Heart rate 84 /min Joey Strange RN Work Phone: [facility] 12-20-2023 13:26-0500 Systolic blood pressure 160 mm[Hg] Joey Strange RN Work Phone: [facility] 12-20-2023 13:00-0500 Body temperature 97.81 [degF] Joey Strange RN Work Phone: [facility] 12-20-2023 13:00-0500 Respiratory rate 16 /min Joey Strange RN Work Phone: [facility] 12-20-2023 13:00-0500 SaO2% (BldA) [Mass fraction] 96 % Joey Strange RN Work Phone: [facility] 11-17-2023 09:38-0500 Body temperature 98 [degF] Dr. Gerardo García Work Phone: [facility] 11-17-2023 09:38-0500 Diastolic blood pressure 68 mm[Hg] Dr. Gerardo García Work Phone: [facility] 11-17-2023 09:38-0500 Heart rate 97 /min Dr. Gerardo García Work Phone: [facility] 11-17-2023 09:38-0500 Respiratory rate 22 /min Dr. Gerardo García Work Phone: 2(437)524-335586 [place] [address] 11-17-2023 09:38-0500 SaO2% (BldA) [Mass fraction] 96 % Dr. Gerardo García Work Phone: 5(038)523-191386 [place] [address] 11-17-2023 09:38-0500 Systolic blood pressure 131 mm[Hg] Dr. Gerardo García Work Phone: 0(982)356-273511 [place] [address] 11-16-2023 16:14-0500 Body height 172.[address] Gerardo García Work Phone: 9(727)696-263611 [place] [address] 11-16-2023 16:14-0500 Body mass index (BMI) [Ratio] 26.4 kg/m2 Dr. Gerarod García Work Phone: 6(337)996-480311 [place] [address] 11-16-2023 16:14-0500 Body weight 78.[address] Gerardo García Work Phone: 5(292)575-770511 [place] [address] 11-13-2023 13:07-0500 Body temperature 98.9 [degF] Dr. Gerardo García Work Phone: 7(674)046-588811 [place] [address] 11-13-2023 13:07-0500 Diastolic blood pressure 80 mm[Hg] Dr. Gerardo García Work Phone: 8(320)643-135011 [place] [address] 11-13-2023 13:07-0500 Heart rate 76 /min Dr. Gerardo García Work Phone: 3(875)349-331611 [place] [address] 11-13-2023 13:07-0500 Respiratory rate 18 /min Dr. Gerardo García Work Phone: 0(312)710-980386 [place] [address] 11-13-2023 13:07-0500 SaO2% (BldA) [Mass fraction] 98 % Dr. Gerardo García Work Phone: 3(017)430-733786 [place] [address] 11-13-2023 13:07-0500 Systolic blood pressure 129 mm[Hg] Dr. Gerardo García Work Phone: 9(582)220-331811 [place] [address] 11-13-2023 10:49-0500 Body height 172.[address] Gerardo García Work Phone: [facility] 11-13-2023 10:49-0500 Body weight 77.[address] Gerardo García Work Phone: [facility] 11-10-2023 23:24-0500 Body mass index (BMI) [Ratio] 26 kg/m2 Dr. Gerardo García Work Phone: [facility] 11-10-2023 22:00-0500 Body temperature 98.3 [degF] Dr. Gerardo García Work Phone: [facility] 11-10-2023 22:00-0500 Diastolic blood pressure 54 mm[Hg] Dr. Gerardo García Work Phone: [facility] 11-10-2023 22:00-0500 Heart rate 76 /min Dr. Gerardo García Work Phone: [facility] 11-10-2023 22:00-0500 Respiratory rate 16 /min Dr. Gerardo García Work Phone: [facility] 11-10-2023 22:00-0500 SaO2% (BldA) [Mass fraction] 94 % Dr. Gerardo García Work Phone: [facility] 11-10-2023 22:00-0500 Systolic blood pressure 126 mm[Hg] Dr. Gerardo García Work Phone: [facility] 11-10-2023 20:11-0500 Body mass index (BMI) [Ratio] 25.9 kg/m2 Dr. Gerardo García Work Phone: [facility] 11-10-2023 20:11-0500 Body weight 77.[address] Gerardo García Work Phone: [facility] 11-10-2023 20:04-0500 Body height 172.[address] Gerardo García Work Phone: [facility] 11-06-2023 13:37-0500 Heart rate 89 /min Dr. Gerardo García Work Phone: [facility] 11-06-2023 13:37-0500 Respiratory rate 16 /min Dr. Gerardo García Work Phone: [facility] 11-06-2023 13:37-0500 SaO2% (BldA) [Mass fraction] 100 % Dr. Gerardo García Work Phone: [facility] 11-06-2023 09:46-0500 Body height 172.[address] Gerardo García Work Phone: [facility] 11-06-2023 09:46-0500 Body temperature 97.6 [degF] Dr. Gerardo García Work Phone: [facility] 11-06-2023 09:46-0500 Diastolic blood pressure 87 mm[Hg] Dr. Gerardo García Work Phone: [facility] 11-06-2023 09:46-0500 Systolic blood pressure 142 mm[Hg] Dr. Gerardo García Work Phone: [facility] 10-09-2023 21:00-0500 Heart rate 93 /min Dr. Gerardo García Work Phone: [facility] 10-09-2023 21:00-0500 Respiratory rate 24 /min Dr. Gerardo García Work Phone: [facility] 10-09-2023 21:00-0500 SaO2% (BldA) [Mass fraction] 97 % Dr. Gerardo García Work Phone: [facility] 10-09-2023 18:25-0500 Diastolic blood pressure 71 mm[Hg] Dr. Gerardo García Work Phone: [facility] 10-09-2023 18:25-0500 Systolic blood pressure 128 mm[Hg] Dr. Gerardo García Work Phone: [facility] 10-09-2023 18:12-0500 Body mass index (BMI) [Ratio] 26.6 kg/m2 Dr. Gerardo García Work Phone: [facility] 10-09-2023 18:12-0500 Body weight 79.[address] Gerardo García Work Phone: 5(900)689-942286 [place] [address] 10-09-2023 13:34-0500 Body height 172.[address] Gerardo García Work Phone: 7(903)002-487586 [place] [address] 10-09-2023 13:34-0500 Body temperature 97.6 [degF] Dr. Gerardo García Work Phone: 9(315)977-702486 [place] [address] 09-25-2023 10:14-0500 Body weight 78.[address] Gerardo García Work Phone: 7(834)563-934411 [place] [address] 09-22-2023 11:11-0400 Heart rate 97 /min Dr. Gerardo García Work Phone: 9(742)686-551211 [place] [address] 09-22-2023 07:44-0400 Body temperature 98.6 [degF] Dr. Gerardo García Work Phone: 1(890)924-871611 [place] [address] 09-22-2023 07:44-0400 Diastolic blood pressure 71 mm[Hg] Dr. Gerardo García Work Phone: 6(638)747-347411 [place] [address] 09-22-2023 07:44-0400 Respiratory rate 16 /min Dr. Gerardo García Work Phone: 2(241)302-728911 [place] [address] 09-22-2023 07:44-0400 SaO2% (BldA) [Mass fraction] 95 % Dr. Gerardo García Work Phone: 7(629)534-230186 [place] [address] 09-22-2023 07:44-0400 Systolic blood pressure 140 mm[Hg] Dr. Gerardo García Work Phone: 7(892)193-301511 [place] [address] 09-22-2023 01:51-0400 Body mass index (BMI) [Ratio] 26.7 kg/m2 Dr. Gerardo García Work Phone: 7(799)253-925386 [place] [address] 09-22-2023 01:51-0400 Body weight 80.[address] Gerardo García Work Phone: 8(386)332-961811 [place] [address] 09-20-2023 11:43-0400 Body height 172.[address] Gerardo García Work Phone: [facility] 09-19-2023 13:50-0400 Diastolic blood pressure 64 mm[Hg] Dr. Gerardo García Work Phone: 0(445)801-352386 [place] [address] 09-19-2023 13:50-0400 Heart rate 74 /min Dr. Gerardo García Work Phone: 9(875)914-982111 [place] [address] 09-19-2023 13:50-0400 Respiratory rate 16 /min Dr. Gerardo García Work Phone: 0(242)456-538686 [place] [address] 09-19-2023 13:50-0400 SaO2% (BldA) [Mass fraction] 95 % Dr. Gerardo García Work Phone: 9(794)226-600386 [place] [address] 09-19-2023 13:50-0400 Systolic blood pressure 106 mm[Hg] Dr. Gerardo García Work Phone: 8(644)488-006611 [place] [address] 09-19-2023 09:45-0400 Body mass index (BMI) [Ratio] 28.2 kg/m2 Dr. Gerardo García Work Phone: 0(996)224-917411 [place] [address] 09-19-2023 09:45-0400 Body weight 84.[address] Gerardo García Work Phone: 5(099)790-514811 [place] [address] 09-19-2023 09:24-0400 Body height 172.[address] Gerardo García Work Phone: 5(237)391-143911 [place] [address] 09-19-2023 09:24-0400 Body temperature 97.3 [degF] Dr. Gerardo García Work Phone: [facility] 08-07-2023 17:01-0400 Body temperature 98.1 [degF] Dr. Gerardo García Work Phone: 1(449)254-531986 [place] [address] 08-07-2023 17:01-0400 Diastolic blood pressure 73 mm[Hg] Dr. Gerardo García Work Phone: 2(402)574-284986 [place] [address] 08-07-2023 17:01-0400 Heart rate 95 /min Dr. Gerardo García Work Phone: 7(584)155-672486 [place] [address] 08-07-2023 17:01-0400 Respiratory rate 18 /min Dr. Gerardo García Work Phone: [facility] 08-07-2023 17:01-0400 SaO2% (BldA) [Mass fraction] 100 % Dr. Gerardo García Work Phone: [facility] 08-07-2023 17:01-0400 Systolic blood pressure 130 mm[Hg] Dr. Gerardo García Work Phone: 8(104)110-163386 [place] [address] 08-06-2023 09:14-0400 Body height 172.[address] Gerardo García Work Phone: 5(280)505-034286 [place] [address] 08-06-2023 09:14-0400 Body mass index (BMI) [Ratio] 28.2 kg/m2 Dr. Gerardo García Work Phone: 4(723)518-717386 [place] [address] 08-06-2023 09:14-0400 Body weight 84.[address] Gerardo García Work Phone: 8(478)314-510686 [place] [address] 06-08-2023 11:46-0400 Body temperature 98.3 [degF] Dr. Gerardo García Work Phone: 0(701)247-388428 [address] 06-08-2023 11:46-0400 Diastolic blood pressure 68 mm[Hg] Dr. Gerardo García Work Phone: 6(318)030-804686 [place] [address] 06-08-2023 11:46-0400 Heart rate 71 /min Dr. Gerardo García Work Phone: [facility] 06-08-2023 11:46-0400 Respiratory rate 16 /min Dr. Gerardo García Work Phone: [facility] 06-08-2023 11:46-0400 SaO2% (BldA) [Mass fraction] 97 % Dr. Gerardo García Work Phone: [facility] 06-08-2023 11:46-0400 Systolic blood pressure 119 mm[Hg] Dr. Gerardo García Work Phone: [facility] 06-08-2023 09:51-0400 Body height 172.[address] Gerardo García Work Phone: [facility] 06-08-2023 09:51-0400 Body mass index (BMI) [Ratio] 27.9 kg/m2 Dr. Gerardo García Work Phone: [facility] 06-08-2023 09:51-0400 Body weight 83.[address] Gerardo García Work Phone: [facility] 06-07-2023 14:17-0400 Diastolic blood pressure 75 mm[Hg] Dr. Gerardo García Work Phone: 8(206)528-367586 [place] [address] 06-07-2023 14:17-0400 Heart rate 72 /min Dr. Gerardo García Work Phone: 2(846)541-345786 [place] [address] 06-07-2023 14:17-0400 Respiratory rate 16 /min Dr. Gerardo García Work Phone: 6(797)794-898428 [address] 06-07-2023 14:17-0400 SaO2% (BldA) [Mass fraction] 96 % Dr. Gerardo García Work Phone: 8(396)183-211286 [place] [address] 06-07-2023 14:17-0400 Systolic blood pressure 129 mm[Hg] Dr. Gerardo García Work Phone: 6(754)417-412311 [place] [address] 06-07-2023 13:11-0400 Body mass index (BMI) [Ratio] 28.1 kg/m2 Dr. Gerardo García Work Phone: 1(205)099-496086 [place] [address] 06-07-2023 13:11-0400 Body temperature 97.9 [degF] Dr. Gerardo García Work Phone: 6(427)925-456786 [place] [address] 06-07-2023 13:11-0400 Body weight 83.[address] Gerardo García Work Phone: 9(950)088-830786 [place] [address] 06-06-2023 14:07-0400 Diastolic blood pressure 69 mm[Hg] Dr. Gerardo García Work Phone: 0(131)942-214686 [place] [address] 06-06-2023 14:07-0400 Heart rate 79 /min Dr. Gerardo García Work Phone: 5(015)175-915086 [place] [address] 06-06-2023 14:07-0400 Systolic blood pressure 122 mm[Hg] Dr. Gerardo García Work Phone: 0(621)367-892986 [place] [address] 06-06-2023 13:00-0400 Body height 172.[address] Gerardo García Work Phone: 6(378)918-835986 [place] [address] 06-06-2023 13:00-0400 Body mass index (BMI) [Ratio] 28.1 kg/m2 Dr. Gerardo García Work Phone: 8(773)845-372386 [place] [address] 06-06-2023 13:00-0400 Body temperature 96.7 [degF] Dr. Gerardo García Work Phone: 1(523)738-005886 [place] [address] 06-06-2023 13:00-0400 Body weight 83.[address] Gerardo García Work Phone: 8(758)180-897511 [place] [address] 06-06-2023 13:00-0400 Respiratory rate 16 /min Dr. Gerardo García Work Phone: 2(381)821-047286 [place] [address] 06-06-2023 13:00-0400 SaO2% (BldA) [Mass fraction] 96 % Dr. Gerardo García Work Phone: 9(613)998-412186 [place] [address] 06-05-2023 14:18-0400 Diastolic blood pressure 62 mm[Hg] Dr. Gerardo García Work Phone: 4(196)593-161611 [place] [address] 06-05-2023 14:18-0400 Heart rate 77 /min Dr. Gerardo García Work Phone: 5(493)835-450386 [place] [address] 06-05-2023 14:18-0400 Systolic blood pressure 140 mm[Hg] Dr. Gerardo García Work Phone: 7(773)176-520911 [place] [address] 06-05-2023 12:55-0400 Body height 172.[address] Gerardo García Work Phone: 7(147)484-831086 [place] [address] 06-05-2023 12:55-0400 Body mass index (BMI) [Ratio] 28.1 kg/m2 Dr. Gerardo García Work Phone: 7(441)[phone] [place] [address] 06-05-2023 12:55-0400 Body temperature 96.5 [degF] Dr. Gerardo García Work Phone: [facility] 06-05-2023 12:55-0400 Body weight 83.[address] Gerardo García Work Phone: [facility] 06-05-2023 12:55-0400 Respiratory rate 14 /min Dr. Gerardo García Work Phone: [facility] 06-05-2023 12:55-0400 SaO2% (BldA) [Mass fraction] 95 % Dr. Gerardo García Work Phone: [facility] 05-22-2023 13:26-0400 Body temperature 97.8 [degF] Dr. Gerardo García Work Phone: [facility] 05-22-2023 13:26-0400 Diastolic blood pressure 83 mm[Hg] Dr. Gerardo García Work Phone: [facility] 05-22-2023 13:26-0400 Heart rate 79 /min Dr. Gerardo García Work Phone: [facility] 05-22-2023 13:26-0400 Respiratory rate 18 /min Dr. Gerardo García Work Phone: [facility] 05-22-2023 13:26-0400 SaO2% (BldA) [Mass fraction] 98 % Dr. Gerardo García Work Phone: [facility] 05-22-2023 13:26-0400 Systolic blood pressure 144 mm[Hg] Dr. Gerardo García Work Phone: [facility] 05-21-2023 14:53-0400 Body temperature 96.1 [degF] Dr. Gerardo García Work Phone: [facility] 05-21-2023 14:53-0400 Diastolic blood pressure 66 mm[Hg] Dr. Gerardo García Work Phone: [facility] 05-21-2023 14:53-0400 Heart rate 75 /min Dr. Gerardo García Work Phone: [facility] 05-21-2023 14:53-0400 Respiratory rate 16 /min Dr. Gerardo García Work Phone: [facility] 05-21-2023 14:53-0400 SaO2% (BldA) [Mass fraction] 97 % Dr. Gerardo García Work Phone: [facility] 05-21-2023 14:53-0400 Systolic blood pressure 126 mm[Hg] Dr. Gerardo García Work Phone: [facility] 05-21-2023 13:11-0400 Body height 172.[address] Gerardo García Work Phone: [facility] 05-21-2023 13:11-0400 Body mass index (BMI) [Ratio] 27.6 kg/m2 Dr. Gerardo García Work Phone: 8(113)[phone] [place] [address] 05-21-2023 13:11-0400 Body weight 82.[address] Gerardo García Work Phone: [facility] 05-20-2023 13:04-0400 Body temperature 97.5 [degF] Dr. Gerardo García Work Phone: [facility] 05-20-2023 13:04-0400 Diastolic blood pressure 70 mm[Hg] Dr. Gerardo García Work Phone: [facility] 05-20-2023 13:04-0400 Heart rate 73 /min Dr. Gerardo García Work Phone: [facility] 05-20-2023 13:04-0400 Respiratory rate 18 /min Dr. Gerardo García Work Phone: [facility] 05-20-2023 13:04-0400 SaO2% (BldA) [Mass fraction] 97 % Dr. Gerardo García Work Phone: [facility] 05-20-2023 13:04-0400 Systolic blood pressure 131 mm[Hg] Dr. Gerardo García Work Phone: [facility] 05-19-2023 13:11-0400 Body temperature 98 [degF] Dr. Gerardo García Work Phone: [facility] 05-19-2023 13:11-0400 Diastolic blood pressure 71 mm[Hg] Dr. Gerardo García Work Phone: [facility] 05-19-2023 13:11-0400 Heart rate 72 /min Dr. Gerardo García Work Phone: [facility] 05-19-2023 13:11-0400 Respiratory rate 18 /min Dr. Gerardo García Work Phone: [facility] 05-19-2023 13:11-0400 SaO2% (BldA) [Mass fraction] 97 % Dr. Gerardo García Work Phone: [facility] 05-19-2023 13:11-0400 Systolic blood pressure 130 mm[Hg] Dr. Gerardo García Work Phone: [facility] 05-18-2023 15:04-0400 Body temperature 97 [degF] Dr. Gerardo García Work Phone: [facility] 05-18-2023 15:04-0400 Diastolic blood pressure 63 mm[Hg] Dr. Gerardo García Work Phone: [facility] 05-18-2023 15:04-0400 Heart rate 74 /min Dr. Gerardo García Work Phone: [facility] 05-18-2023 15:04-0400 Respiratory rate 16 /min Dr. Gerardo García Work Phone: [facility] 05-18-2023 15:04-0400 SaO2% (BldA) [Mass fraction] 97 % Dr. Gerardo García Work Phone: [facility] 05-18-2023 15:04-0400 Systolic blood pressure 114 mm[Hg] Dr. Gerardo García Work Phone: [facility] 05-18-2023 13:55-0400 Body height 172.[address] Gerardo García Work Phone: [facility] 05-18-2023 13:55-0400 Body mass index (BMI) [Ratio] 27.3 kg/m2 Dr. Gerardo García Work Phone: [facility] 05-18-2023 13:55-0400 Body weight 81.[address] Gerardo García Work Phone: [facility] 05-17-2023 14:48-0400 Body temperature 96.4 [degF] Dr. Gerardo García Work Phone: [facility] 05-17-2023 14:48-0400 Diastolic blood pressure 65 mm[Hg] Dr. Gerardo García Work Phone: [facility] 05-17-2023 14:48-0400 Heart rate 66 /min Dr. Gerardo García Work Phone: [facility] 05-17-2023 14:48-0400 Respiratory rate 16 /min Dr. Gerardo García Work Phone: [facility] 05-17-2023 14:48-0400 SaO2% (BldA) [Mass fraction] 99 % Dr. Gerardo García Work Phone: [facility] 05-17-2023 14:48-0400 Systolic blood pressure 122 mm[Hg] Dr. Gerardo García Work Phone: [facility] 05-17-2023 13:56-0400 Body height 172.[address] Gerardo García Work Phone: [facility] 05-16-2023 15:09-0400 Body temperature 97.1 [degF] Dr. Gerardo García Work Phone: [facility] 05-16-2023 15:09-0400 Diastolic blood pressure 64 mm[Hg] Dr. Gerardo García Work Phone: [facility] 05-16-2023 15:09-0400 Heart rate 64 /min Dr. Gerardo García Work Phone: [facility] 05-16-2023 15:09-0400 Respiratory rate 16 /min Dr. Gerardo García Work Phone: [facility] 05-16-2023 15:09-0400 SaO2% (BldA) [Mass fraction] 95 % Dr. Gerardo García Work Phone: [facility] 05-16-2023 15:09-0400 Systolic blood pressure 116 mm[Hg] Dr. Gerardo García Work Phone: [facility] 05-16-2023 14:05-0400 Body height 172.[address] Geradro García Work Phone: 5(238)[phone] [place] [address] 05-16-2023 14:05-0400 Body mass index (BMI) [Ratio] 27.6 kg/m2 Dr. Gerardo García Work Phone: 2(714)[phone] [place] [address] 05-16-2023 14:05-0400 Body weight 82.[address] Gerardo García Work Phone: 4(539)[phone] [place] [address] 04-10-2023 09:17-0400 Body temperature 97.4 [degF] Dr. Gerardo García Work Phone: 7(303)[phone] [address] 04-10-2023 09:17-0400 Diastolic blood pressure 84 mm[Hg] Dr. Gerardo García Work Phone: [facility] 04-10-2023 09:17-0400 Heart rate 57 /min Dr. Gerardo García Work Phone: [facility] 04-10-2023 09:17-0400 Respiratory rate 18 /min Dr. Gerardo García Work Phone: [facility] 04-10-2023 09:17-0400 SaO2% (BldA) [Mass fraction] 99 % Dr. Gerardo García Work Phone: [facility] 04-10-2023 09:17-0400 Systolic blood pressure 130 mm[Hg] Dr. Gerardo García Work Phone: [facility] 01-24-2023 14:01-0500 Body temperature 97.5 [degF] Dr. Gerardo García Work Phone: [facility] 01-24-2023 14:01-0500 Diastolic blood pressure 59 mm[Hg] Dr. Gerardo García Work Phone: [facility] 01-24-2023 14:01-0500 Heart rate 67 /min Dr. Gerardo García Work Phone: [facility] 01-24-2023 14:01-0500 Respiratory rate 16 /min Dr. Gerardo García Work Phone: [facility] 01-24-2023 14:01-0500 SaO2% (BldA) [Mass fraction] 96 % Dr. Gerardo García Work Phone: [facility] 01-24-2023 14:01-0500 Systolic blood pressure 136 mm[Hg] Dr. Gerardo García Work Phone: 8(053)[phone] [place] [address] 01-24-2023 11:13-0500 Body height 172.[address] Gerardo García Work Phone: [facility] 01-24-2023 11:13-0500 Body mass index (BMI) [Ratio] 29.3 kg/m2 Dr. Gerardo García Work Phone: [facility] 01-24-2023 11:13-0500 Body weight 87.[address] Gerardo García Work Phone: [facility] 01-02-2023 08:50-0500 Body temperature 96.8 [degF] Dr. Gerardo García Work Phone: [facility] 08-01-2022 10:31-0400 SaO2% (BldA) [Mass fraction] 96 % Dr. Gerardo García Work Phone: [facility] Work Phone: 08-01-2022 10:00-0400 Body temperature 97.6 [degF] Dr. Gerardo García Work Phone: [facility] Work Phone: 08-01-2022 10:00-0400 Diastolic blood pressure 80 mm[Hg] Dr. Gerardo García Work Phone: [facility] Work Phone: 08-01-2022 10:00-0400 Heart rate 83 /min Dr. Gerardo García Work Phone: [facility] Work Phone: 08-01-2022 10:00-0400 Respiratory rate 18 /min Dr. Gerardo García Work Phone: [facility] Work Phone: 08-01-2022 10:00-0400 Systolic blood pressure 150 mm[Hg] Dr. Gerardo García Work Phone: [facility] Work Phone: 08-01-2022 05:24-0400 Body weight 92.[address] Gerardo García Work Phone: [facility] Work Phone: 07-30-2022 10:06-0400 Body height 172.[address] Gerardo García Work Phone: [facility] Work Phone: 07-29-2022 16:47-0400 Body mass index (BMI) [Ratio] 29.7 kg/m2 Dr. Gerardo García Work Phone: [facility] Work Phone: 07-28-2022 08:25-0400 Body temperature 98.3 [degF] Dr. Gerardo García Work Phone: [facility] Work Phone: 07-28-2022 08:25-0400 Diastolic blood pressure 62 mm[Hg] Dr. Gerardo García Work Phone: [facility] Work Phone: 07-28-2022 08:25-0400 Heart rate 72 /min Dr. Gerardo García Work Phone: [facility] Work Phone: 07-28-2022 08:25-0400 Respiratory rate 16 /min Dr. Gerardo García Work Phone: [facility] Work Phone: 07-28-2022 08:25-0400 SaO2% (BldA) [Mass fraction] 99 % Dr. Gerardo García Work Phone: [facility] Work Phone: 07-28-2022 08:25-0400 Systolic blood pressure 109 mm[Hg] Dr. Gerardo García Work Phone: [facility] Work Phone: 07-28-2022 06:35-0400 Body height 172.[address] Gerardo García Work Phone: [facility] Work Phone: 07-28-2022 06:35-0400 Body mass index (BMI) [Ratio] 29.7 kg/m2 Dr. Gerardo García Work Phone: [facility] Work Phone: 07-28-2022 06:35-0400 Body weight 88.[address] Gerardo García Work Phone: [facility] Work Phone: 07-04-2022 14:24-0400 Body height 172.[address] Gerardo García Work Phone: [facility] Work Phone: 07-04-2022 14:17-0400 Body mass index (BMI) [Ratio] 29.8 kg/m2 Dr. Gerardo García Work Phone: [facility] Work Phone: 07-04-2022 14:17-0400 Body temperature 97.6 [degF] Dr. Gerardo García Work Phone: [facility] Work Phone: 07-04-2022 14:17-0400 Body weight 89.[address] Gerardo García Work Phone: [facility] Work Phone: 07-04-2022 14:17-0400 Diastolic blood pressure 83 mm[Hg] Dr. Gerardo García Work Phone: [facility] Work Phone: 07-04-2022 14:17-0400 Heart rate 73 /min Dr. Gerardo García Work Phone: [facility] Work Phone: 07-04-2022 14:17-0400 Respiratory rate 15 /min Dr. Gerardo García Work Phone: [facility] Work Phone: 07-04-2022 14:17-0400 SaO2% (BldA) [Mass fraction] 97 % Dr. Gerardo García Work Phone: [facility] Work Phone: 07-04-2022 14:17-0400 Systolic blood pressure 160 mm[Hg] Dr. Gerardo García Work Phone: [facility] Work Phone: 12-30-2021 14:55-0500 Body temperature 97.9 [degF] Dr. Gerardo García Work Phone: [facility] Work Phone: 12-30-2021 14:55-0500 Diastolic blood pressure 63 mm[Hg] Dr. Gerardo García Work Phone: [facility] Work Phone: 12-30-2021 14:55-0500 Heart rate 68 /min Dr. Gerardo García Work Phone: [facility] Work Phone: 12-30-2021 14:55-0500 Respiratory rate 16 /min Dr. Gerardo García Work Phone: [facility] Work Phone: 12-30-2021 14:55-0500 SaO2% (BldA) [Mass fraction] 92 % Dr. Gerardo García Work Phone: [facility] Work Phone: 12-30-2021 14:55-0500 Systolic blood pressure 137 mm[Hg] Dr. Gerardo García Work Phone: [facility] Work Phone: 12-30-2021 12:10-0500 Body height 172.[address] Gerardo García Work Phone: [facility] Work Phone: 12-30-2021 12:10-0500 Body mass index (BMI) [Ratio] 28.1 kg/m2 Dr. Gerardo García Work Phone: [facility] Work Phone: 12-30-2021 12:10-0500 Body weight [address] Gerardo García Work Phone: [facility] Work Phone: 12-05-2021 14:35-0500 Body mass index (BMI) [Ratio] 27.9 kg/m2 Dr. Gerardo García Work Phone: [facility] Work Phone: 12-05-2021 14:35-0500 Body temperature 97.6 [degF] Dr. Gerardo García Work Phone: [facility] Work Phone: 12-05-2021 14:35-0500 Body weight 83.[address] Gerardo García Work Phone: [facility] Work Phone: 12-05-2021 14:35-0500 Diastolic blood pressure 83 mm[Hg] Dr. Gerardo García Work Phone: [facility] Work Phone: 12-05-2021 14:35-0500 Heart rate 87 /min Dr. Gerardo García Work Phone: [facility] Work Phone: 12-05-2021 14:35-0500 Respiratory rate 16 /min Dr. Gerardo García Work Phone: [facility] Work Phone: 12-05-2021 14:35-0500 SaO2% (BldA) [Mass fraction] 96 % Dr. Gerardo García Work Phone: [facility] Work Phone: 12-05-2021 14:35-0500 Systolic blood pressure 150 mm[Hg] Dr. Gerardo García Work Phone: [facility] Work Phone: 11-29-2021 13:30-0500 Body temperature 98.4 [degF] Dr. Gerardo García Work Phone: [facility] Work Phone: 11-29-2021 13:30-0500 Diastolic blood pressure 74 mm[Hg] Dr. Gerardo García Work Phone: [facility] Work Phone: 11-29-2021 13:30-0500 Heart rate 74 /min Dr. Gerardo García Work Phone: [facility] Work Phone: 11-29-2021 13:30-0500 Respiratory rate 16 /min Dr. Gerardo García Work Phone: [facility] Work Phone: 11-29-2021 13:30-0500 SaO2% (BldA) [Mass fraction] 93 % Dr. Gerardo García Work Phone: [facility] Work Phone: 11-29-2021 13:30-0500 Systolic blood pressure 127 mm[Hg] Dr. Gerardo García Work Phone: [facility] Work Phone: 11-29-2021 08:29-0500 Body mass index (BMI) [Ratio] 28.3 kg/m2 Dr. Gerardo García Work Phone: [facility] Work Phone: 11-29-2021 08:29-0500 Body weight 84.[address] Gerardo García Work Phone: [facility] Work Phone: 05-31-2021 15:25-0400 Body mass index (BMI) [Ratio] 27.1 kg/m2 Dr. Gerardo García Work Phone: [facility] Encounters Encounter Date Encounter Type Care Provider Facility Start: 09-21-2025 ambulatory [facility] Facility:[facility] Start: 09-15-2025 ambulatory [facility] Facility:[facility] Start: 09-03-2025 End: 09-03-2025 ambulatory [facility] Facility:[facility] Start: 09-01-2025 End: 09-01-2025 ambulatory UNKNOWN PROVIDER Facility:[id number] Start: 08-03-2025 End: 08-03-[address] Gerardo García MD Work Phone: -Laboratory Phy Office 3rd Flr Start: 08-03-2025 End: 08-03-[address] Gerardo García MD -Laboratory Phy Office 3rd Flr Start: 08-03-2025 End: 08-03-2025 ambulatory [facility] Facility:[facility] Start: 07-13-2025 ambulatory Lloyd Neves Facility :[facility] Start: 07-09-2025 End: 07-09-2025 ambulatory CHEIKH HIGH MD Facility:[id number] Start: 07-08-2025 End: 07-08-2025 Telephone encounter Corina Felix APRN.CNP Work Phone: Urology Comment on above: Patient Update Start: 07-06-2025 End: 07-06-[address] Gerardo García MD Work Phone: -Laboratory Phy Office 3rd Flr Start: 07-06-2025 End: 07-06-[address] Gerardo García MD -Laboratory Phy Office 3rd Flr Start: 07-06-2025 End: 07-06-2025 ambulatory [facility] Facility:[facility] Start: 06-15-2025 End: 06-15-2025 ambulatory ROCÍO OLIVEIRA Facility:[id number] Start: 04-20-2025 End: 04-20-2025 ambulatory GHULAM RIVERA Facility:[id number] Start: 04-15-2025 End: 04-15-[address] Gerardo García MD Work Phone: [facility] Work Phone: Start: 04-15-2025 End: 04-15-[address] Luz Maria Matthews DO -Laboratory Work Phone: Start: 04-15-2025 End: 04-15-2025 ambulatory [facility] Facility:[facility] Start: 03-20-2025 End: 03-20-[address] Gerardo García MD -Laboratory Specimen Work Phone: Start: 03-20-2025 End: 03-20-2025 ambulatory [facility] Facility:[facility] Start: 03-03-2025 End: 03-03-2025 Patient encounter procedure Cristina DEY -[facility] Work Phone: Start: 03-03-2025 End: 03-03-2025 ambulatory Gerardo García Facility:[facility] Start: 02-23-2025 End: 02-23-2025 ambulatory CHEIKH HIGH MD Facility:[id number] Start: 02-02-2025 End: 02-02-[address] Gerardo García MD Work Phone: [facility] Work Phone: Start: 02-02-2025 End: 02-02-[address] Gerardo García MD -Laboratory, Phy Office 3rd [facility] Start: 02-02-2025 End: 02-02-2025 ambulatory [facility] Facility:[facility] Start: 01-27-2025 ambulatory CORINA RUFFIN [facility] ility:[id number] Start: 01-27-2025 End: 01-27-2025 Subsequent hospital visit by physician Xr [facility] Comment on above: Nephrostomy tube ble ed (HCC) [T83.83XA] Start: 01-27-2025 End: 01-27-2025 Office outpatient new 30 minutes Corina Ruffin MEDIA TECHNICIAN Work Phone: Urology Comment on above: Nephrostomy tube ble ed (HCC) (Primary Dx) Start: 01-27-2025 End: 01-27-2025 ambulatory CORINA RUFFIN Facility:[id number] Start: 01-26-2025 End: 01-26-2025 ambulatory Injection/[facility] Comment on above: Sepsis secondary to UTI (HCC) (HCC) (Primary Dx) Start: 01-23-2025 End: 01-23-2025 ambulatory [facility] Comment on above: Sepsis secondary to UTI (HCC) (HCC) (Primary Dx) Start: 01-13-2025 End: 01-13-2025 Telephone encounter Jin Antonio MD Work Phone: Urology Start: 01-12-2025 End: 01-19-2025 Evaluation and management of inpatient GERARDO CAIO GARCÍA Facility:[id number] Start: 01-12-2025 End: 01-12-2025 ambulatory ABED ZULLY PALMER Facility:[id number] Start: 01-07-2025 End: 01-07-[address] Hunter Olvera MD -Laboratory Work Phone: Start: 01-07-2025 End: 01-07-2025 ambulatory Hunter Olvera Facility:[facility] Start: 12-22-2024 End: 12-22-2024 Patient encounter procedure Jin Antonio MD Work Phone: Urology Comment on above: Hydronephrosis, unsp ecified hydronephrosis type [N13.30] (Primary Dx) Start: 12-22-2024 End: 12-22-2024 ambulatory JIN ANTONIO Facility:[id number] Start: 11-17-2024 End: 11-17-2024 ambulatory UNKNOWN PROVIDER Facility:[id number] Start: 11-07-2024 End: 11-07-2024 Telephone encounter Jin Antonio MD Work Phone: Urology Comment on above: Patient Question Start: 11-03-2024 End: 11-03-[address] Gerardo García MD -Laboratory, Phy Office 3rd Flr Start: 11-03-2024 End: 11-03-2024 ambulatory [facility] Facility:[facility] Start: 10-27-2024 End: 10-27-[address] Gerardo García MD -Laboratory, Phy Office 3rd Flr Start: 10-27-2024 End: 10-27-2024 ambulatory [facility] Facility:[facility] Start: 09-29-2024 ambulatory GHULAM Sheridan y:[id number] Start: 09-29-2024 End: 09-29-2024 Subsequent hospital visit by physician Ghulam Rivera DO Work Phone: [facility] Comment on above: Other hydronephrosis [N13.39] Start: 09-06-2024 End: 09-08-2024 Evaluation and management of inpatient JOHN WEEMS Facility:[id number] Start: 08-29-2024 End: 09-01-2024 Telephone encounter Jin Antonio MD Work Phone: Urology Comment on above: Ios Programmer - O ther (Nephrostomy tube supplies ) Start: 08-29-2024 End: 08-29-2024 Patient encounter procedure Jin Antonio MD Work Phone: Urology Comment on above: Hydronephrosis with ureteral stricture, not elsewhere classified (Primary Dx) Start: 07-08-2024 End: 07-08-2024 Telephone encounter Jin Antonio MD Work Phone: Urology Start: 07-07-2024 End: 07-07-2024 Patient encounter procedure Jin Antonio MD Work Phone: Urology Comment on above: Bilateral hydronephr osis (Primary Dx); LULY (acute kidney injury) (HCC); Recurrent UTI Start: 07-04-2024 Telephone encounter Andres salgado MD Work Phone: Urology Start: 06-16-2024 Telephone encounter Andres salgado MD Work Phone: Urology Comment on above: Surgery Start: 06-16-2024 End: 06-16-2024 Subsequent hospital visit by physician Geraldo Campbell MD Work Phone: MR [facility]AL RADIOLOGY Comment on above: Hydronephrosis, unsp ecified hydronephrosis type [N13.30] Start: 06-15-2024 Telephone encounter Andres salgado MD Work Phone: MR PROVIDER ADULT Comment on above: Ios Programmer - C hronic Care (Set up for L NT reinsertion) Start: 05-13-2024 End: 05-13-2024 Subsequent hospital visit by physician Jona Clark MD Work Phone: MR INTER[facility]AL RADIOLOGY Comment on above: Hydronephrosis, unsp ecified hydronephrosis type [N13.30] Start: 04-23-2024 Telephone encounter Corina oscar ELECTRICAL WORKER.MEDIA TECHNICIAN Work Phone: Urology Comment on above: Patient Question Start: 03-18-2024 End: 03-18-2024 Orders Only Prabha Miguel ELECTRICAL WORKER.MEDIA TECHNICIAN Work Phone: Urology Comment on above: Hydronephrosis of le ft kidney (Primary Dx) Orders; Patient Upda te Hydronephrosis, unsp ecified hydronephrosis type [N13.30] Start: 03-17-2024 Telephone encounter Jin Antonio MD Work Phone: Urology Comment on above: Appointment Orders Start: 03-17-2024 End: 03-17-[address] Gerardo García Work Phone: [facility] Work Phone: Start: 03-17-2024 End: 03-17-[address] Gerardo García Work Phone: [facility]-Laboratory Work Phone: Start: 03-11-2024 End: 03-11-[address] Gerrado García Work Phone: [facility] Work Phone: Start: 03-03-2024 End: 03-03-2024 Patient encounter procedure Jin Antonio MD Work Phone: Urology Comment on above: Bilateral hydronephr osis (Primary Dx); LULY (acute kidney injury) (HCC) Start: 02-17-2024 Non-patient / Non-visit Dr. Lenny García Work Phone: [facility] Work Phone: Start: 02-16-2024 Non-patient / Non-visit Dr. Lenny García Work Phone: [facility] Work Phone: Start: 02-15-2024 Telephone encounter Jin Antonio MD Work Phone: Urology Comment on above: Patient Question Start: 02-15-2024 Non-patient / Non-visit Dr. Lenny García Work Phone: [facility] Work Phone: Start: 02-14-2024 End: 02-17-2024 Evaluation and management of inpatient Dr. Gerardo García Work Phone: [facility] Work Phone: Start: 02-11-2024 Telephone encounter Jin Antonio MD Work Phone: Urology Start: 02-06-2024 Patient encounter status Linwood Antonio MD Work Phone: [facility] Work Phone: Start: 02-04-2024 End: 02-04-[address] Gerardo García Work Phone: [facility] Work Phone: Start: 02-04-2024 End: 02-04-[address] Gerardo Ricky Work Phone: [facility]-Laboratory, Phy Office 3rd Flr Start: 01-22-2024 Orders Only Prabha Miguel ELECTRICAL WORKER.MEDIA TECHNICIAN Work Phone: Urology Comment on above: Bilateral hydronephr osis (Primary Dx) Start: 01-10-2024 End: 01-10-2024 Home visit Breann Woods RN Work Phone: [facility] Comment on above: SN AGENCY DC W VISIT Start: 01-03-2024 End: 01-03-2024 Home visit Breann Woods RN Work Phone: [facility] Comment on above: SN ROUTINE Start: 01-01-2024 ambulatory GERARDO CHI RICKY Facility:[facility] Start: 01-01-2024 End: 01-01-2024 Subsequent hospital visit by physician Jose L Patel MD Work Phone: [facility] INTER[facility]AL RADIOLOGY Comment on above: Bilateral hydronephr osis [N13.30] Start: 12-27-2023 End: 12-27-2023 Home visit Breann Woods RN Work Phone: [facility] Comment on above: SN ROUTINE Start: 12-25-2023 Telephone encounter Jin Antonio MD Work Phone: Urology Comment on above: Patient Question Surgery Start: 12-24-2023 End: 12-24-2023 Patient encounter procedure Jin Antonio MD Work Phone: Urology Comment on above: LULY (acute kidney in jury) (HCC) (Primary Dx); Bilateral hydronephrosis; Recurrent UTI Start: 12-21-2023 End: 12-21-2023 Home visit Emanuel Curtis RN Work Phone: [facility] Comment on above: CARE COORDINATION Start: 12-21-2023 Telephone encounter Jin Antonio MD Work Phone: Urology Comment on above: Patient Question Start: 12-20-2023 Telephone encounter Joey Mendez i RN Work Phone: [facility] Comment on above: Home Care (Drainage from right nephrostomy tube site, HTN) Start: 12-20-2023 End: 12-20-2023 Home visit Joey Strange RN Work Phone: [facility] Comment on above: SN ROUTINE Start: 11-16-2023 End: 11-17-2023 Emergency department patient visit Dr. Gerardo García Work Phone: [facility] Work Phone: Start: 11-13-2023 Non-patient / Non-visit Dr. Lenny García Work Phone: [facility] Work Phone: Start: 11-13-2023 Dr. Gerardo García Work Phone: [facility] Work Phone: Start: 11-12-2023 Non-patient / Non-visit Dr. Lenny García Work Phone: [facility] Work Phone: Start: 11-12-2023 Dr. Gerardo García Work Phone: [facility] Work Phone: Start: 11-11-2023 Non-patient / Non-visit Dr. Lenny García Work Phone: [facility] Work Phone: Start: 11-11-2023 Dr. Gerardo García Work Phone: [facility] Work Phone: Start: 11-10-2023 End: 11-13-2023 Evaluation and management of inpatient Dr. Gerardo García Work Phone: [facility] Work Phone: Start: 11-10-2023 End: 11-13-2023 Dr. Ger[facility]ía [facility] Work Phone: Start: 11-06-2023 End: 11-06-2023 Emergency department patient visit Dr. Gerardo García Work Phone: [facility] Work Phone: Start: 11-06-2023 End: 11-06-2023 Dr. Gerardo García Work Phone: [facility] Work Phone: Start: 10-30-2023 End: 10-30-[address] Gerardo García Work Phone: [facility] Work Phone: Start: 10-30-2023 End: 10-30-[address] [facility] Start: 10-30-2023 End: 10-30-2023 Dr. Gerardo García Work Phone: [facility] [place], y Office 3rd Flr Start: 10-23-2023 End: 10-23-[address] Gerardo García Work Phone: [facility] Work Phone: Start: 10-23-2023 End: 10-23-[address] Ger[facility] Start: 10-23-2023 End: 10-23-2023 Dr. Gerardo García [facility] Start: 10-22-2023 Telephone encounter Andres salgado MD Work Phone: Urology Comment on above: Stent Start: 10-09-2023 End: 10-09-2023 Emergency department patient visit Dr. Gerardo García Work Phone: [facility] Work Phone: Start: 10-09-2023 End: 10-09-2023 Dr. Gerardo García Work Phone: [facility] Work Phone: Start: 10-08-[address] Ger[facility]ía [facility] Start: 10-08-2023 End: 10-08-2023 Dr. Gerardo García [facility] 3[facility] Flr Start: 10-05-2023 End: 10-05-[address] Gerardo García Work Phone: [facility] Work Phone: Start: 10-05-2023 End: 10-05-[address] Gerardo García [facility] Start: 10-05-2023 End: 10-05-2023 Dr. Gerardo García Work Phone: [facility] [place], [facility] Office 3rd Flr Start: 09-25-[address] Gerardo boyer Work Phone: [facility] Start: 09-25-2023 Dr. Gerardo García Work Phone: [facility] Start: 09-22-2023 Non-patient / Non-visit Dr. Lenny García Work Phone: [facility] Work Phone: Start: 09-22-2023 Dr. Gerardo García Work Phone: [facility] Work Phone: Start: 09-21-2023 Non-patient / Non-visit Dr. Lenny García Work Phone: [facility] Work Phone: Start: 09-21-2023 Dr. Gerardo García Work Phone: [facility] Work Phone: Start: 09-20-2023 Non-patient / Non-visit Dr. Lenny García Work Phone: [facility] Work Phone: Start: 09-20-2023 Dr. Gerardo García Work Phone: [facility] Work Phone: Start: 09-19-2023 Non-patient / Non-visit Dr. Lenny García Work Phone: [facility] Work Phone: Start: 09-19-2023 End: 09-22-2023 Evaluation and management of inpatient Dr. Gerardo García Work Phone: [facility] 3 Work Phone: Start: 09-19-2023 End: 09-22-2023 Dr. Gerardo García Work Phone: [facility] 3 Work Phone: Start: 08-17-2023 End: 08-17-[address] Gerardo García Work Phone: [facility]Labor[facility], Specimen Work Phone: Start: 08-17-2023 End: 08-17-2023 Dr. Gerardo García Work Phone: [facility], Specimen Work Phone: Start: 08-14-[address] Ger[facility] boyer [facility] Start: 08-14-2023 Dr. Gerardo García [facility]: Start: 08-10-2023 End: 08-10-[address] Gerardo García Work Phone: [facility] Work Phone: Start: 08-10-2023 End: 08-10-[address] Gerardo García Work Phone: [facility] Work Phone: Start: 08-10-2023 End: 08-10-2023 Dr. Gerardo García Work Phone: [facility] Work Phone: Start: 08-07-2023 Non-patient / Non-visit Dr. Lenny García Work Phone: [facility] Work Phone: Start: 08-07-2023 Dr. Gerardo García Work Phone: [facility] Work Phone: Start: 08-06-2023 Non-patient / Non-visit Dr. Lenny García Work Phone: [facility] Work Phone: Start: 08-06-2023 Dr. Gerardo García Work Phone: [facility] Work Phone: Start: 08-05-2023 Non-patient / Non-visit Dr. Lenny García Work Phone: [facility] Work Phone: Start: 08-05-2023 Dr. Gerardo García Work Phone: [facility] Work Phone: Start: 08-04-2023 Non-patient / Non-visit Dr. Lenny García Work Phone: [facility] Work Phone: Start: 08-04-2023 Dr. Gerardo García Work Phone: [facility] Work Phone: Start: 08-03-2023 Non-patient / Non-visit Dr. Lenny García Work Phone: [facility] Work Phone: Start: 08-03-2023 Dr. Gerardo García Work Phone: [facility] Work Phone: Start: 08-02-2023 End: 08-07-2023 Evaluation and management of inpatient Dr. Gerardo García Work Phone: [facility] 3 Work Phone: Start: 08-02-2023 End: 08-07-2023 Dr. Gerardo García Work Phone: [facility] 3 Work Phone: Start: 07-20-2023 End: 07-20-[address] Gerardo García Work Phone: [facility] Work Phone: Start: 07-20-2023 End: 07-20-[address] Gerardo García Work Phone: [facility]/Neurology Work Phone: Start: 07-20-2023 End: 07-20-2023 Dr. Gerardo García Work Phone: [facility] Work Phone: Start: 06-19-2023 End: 06-19-[address] Gerardo García Work Phone: [facility] Work Phone: Start: 06-19-2023 End: 06-19-[address] Ger[facility]ía [facility] Start: 06-19-2023 End: 06-19-2023 Dr. Gerardo García [facility] Start: 06-11-2023 End: 06-11-[address] Gerardo García Work Phone: [facility] Work Phone: Start: 06-11-2023 End: 06-11-[address] Ger[facility]ía [facility] Start: 06-11-2023 End: 06-11-2023 Dr. Gerardo García [facility]: Start: 06-08-2023 End: 06-08-2023 Admission to same day surgery center Dr. Gerardo García [facility] Start: 06-07-2023 End: 06-07-[address] Ger[facility] García [facility]: Start: 06-06-2023 End: 06-06-[address] Gerardo García Work Phone: [facility] Work Phone: Start: 06-06-2023 End: 06-06-[address] Ger[facility] García [facility]: Start: 06-05-2023 End: 06-05-[address] Gerardo Gacría Work Phone: [facility] Work Phone: Start: 06-05-2023 End: 06-05-[address] Gerardo García [facility]: Start: 05-28-2023 End: 05-28-[address] Gerardo García Work Phone: [facility] Work Phone: Start: 05-28-2023 End: 05-28-[address] Gerardo García Work Phone: [facility]Labor[facility], Specimen Work Phone: Start: 05-22-2023 End: 05-22-[address] Gerardo García Work Phone: [facility] Work Phone: Start: 05-22-2023 End: 05-22-[address] Gerardo García Work Phone: [facility] Work Phone: Start: 05-21-2023 End: 05-21-[address] Gerrado García Work Phone: [facility] Work Phone: Start: 05-21-2023 End: 05-21-[address] Gerardo García [facility] Start: 05-20-2023 End: 05-20-[address] Gerardo García Work Phone: [facility] Work Phone: Start: 05-20-2023 End: 05-20-[address] Gerardo García [facility] Start: 05-19-2023 End: 05-19-[address] Gerardo García Work Phone: [facility] Work Phone: Start: 05-19-2023 End: 05-19-[address] Gerardo García [facility]: Start: 05-18-2023 End: 05-18-[address] Gerardo García [facility]: Start: 05-17-2023 End: 05-17-[address] Gerardo García Work Phone: [facility] Work Phone: Start: 05-17-2023 End: 05-17-[address] Gerardo García [facility] Start: 05-16-2023 End: 05-16-[address] Gerardo García Work Phone: [facility] Work Phone: Start: 05-16-2023 End: 05-16-[address] Gerardo García [facility]: Start: 05-14-2023 End: 05-14-[address] Gerardo García Work Phone: [facility] Work Phone: Start: 05-14-2023 End: 05-14-[address] Gerardo García Work Phone: [facility]/Neurology Start: 05-11-2023 End: 05-11-[address] Gerardo García Work Phone: [facility] Work Phone: Start: 05-11-2023 End: 05-11-[address] Gerardo García Work Phone: [facility]Labor[facility], Specimen Start: 05-10-2023 End: 05-10-[address] Gerardo García Work Phone: [facility] Work Phone: Start: 05-10-2023 End: 05-10-[address] Gerardo García Work Phone: [facility], Specimen Start: 04-10-2023 End: 04-10-[address] Gerardo García Work Phone: [facility] Start: 04-03-2023 End: 04-03-[address] Gerardo García Work Phone: [facility]-Ultrasound, [facility] Start: 03-27-2023 End: 03-27-[address] Gerardo García Work Phone: [facility] Start: 02-22-2023 End: 02-22-[address] Gerardo García [facility] Start: 01-24-2023 End: 01-24-2023 Admission to same day surgery center Dr. Gerardo García Work Phone: [facility] Start: 01-22-2023 End: 01-22-[address] Gerardo García Work Phone: [facility] Work Phone: Start: 01-22-2023 End: 01-22-[address] Gerardo García [facility] 3[facility] Flr Start: 01-22-2023 End: 01-22-[address] Gerardo García Work Phone: [facility] Work Phone: Start: 01-22-2023 End: 01-22-[address] Gerardo García Work Phone: [facility]/Neurology Start: 01-02-2023 End: 01-02-[address] Gerardo García Work Phone: [facility] Work Phone: Start: 01-02-2023 End: 01-02-[address] Gerardo García [facility] Start: 01-02-2023 End: 01-02-[address] Gerardo García Work Phone: [facility] Start: 12-05-2022 End: 12-05-[address] Gerardo García Work Phone: [facility] Work Phone: Start: 12-05-2022 End: 12-05-[address] Gerardo García Work Phone: [facility] Start: 10-30-2022 End: 10-30-[address] Gerardo García [facility] Start: 10-27-2022 End: 10-27-[address] Gerardo García Work Phone: [facility] Work Phone: Start: 10-27-2022 End: 10-27-[address] Gerardo García [facility] Start: 10-02-2022 End: 10-02-[address] Gerardo García Work Phone: [facility] Work Phone: Start: 10-02-2022 End: 10-02-[address] Gerardo García [facility] Start: 09-20-2022 End: 09-20-[address] Gerardo García Work Phone: [facility] Start: 09-18-2022 End: 09-18-[address] Gerardo García Work Phone: [facility] Work Phone: Start: 09-18-2022 End: 09-18-[address] Gerardo García [facility] Start: 08-28-2022 End: 08-28-[address] Gerardo García [facility] Start: 08-03-2022 End: 08-03-[address] Gerardo García [facility] Phone[facility] 3[facility] Flr Start: 08-01-2022 Non-patient / Non-visit Dr. Lenny García Work Phone: [facility] Start: 07-31-2022 Non-patient / Non-visit Dr. Lenny García Work Phone: [facility] Start: 07-30-2022 Non-patient / Non-visit Dr. Lenny García Work Phone: [facility] Start: 07-29-2022 Non-patient / Non-visit Dr. Lenny García Work Phone: [facility] Start: 07-29-2022 End: 08-01-2022 Evaluation and management of inpatient Dr. Gerardo García [facility] Start: 07-28-2022 End: 07-28-2022 Admission to same day surgery center Dr. Gerardo García Work Phone: [facility] Start: 07-28-2022 End: 07-28-[address] Gerardo García Work Phone: [facility] Work Phone: Start: 07-21-2022 End: 07-21-[address] Gerardo García Work Phone: [facility] Work Phone: Start: 07-21-2022 End: 07-21-[address] Gerardo García Work Phone: [facility] Start: 07-04-[address] Gerardo boyer Work Phone: [facility] Start: 07-04-2022 End: 07-04-[address] Gerardo García Work Phone: [facility] Start: 05-15-2022 End: 05-15-[address] Gerardo García Work Phone: [facility] Start: 05-12-2022 End: 05-12-[address] Gerardo García Work Phone: [facility] Start: 05-02-2022 End: 05-02-[address] Gerardo García [facility] Start: 04-11-2022 End: 04-11-[address] Gerardo García Work Phone: [facility] Start: 03-20-2022 End: 03-20-[address] Gerardo García [facility] Start: 03-15-2022 End: 03-15-[address] Gerardo García [facility] Start: 02-16-2022 End: 02-16-[address] Gerardo García [facility] Start: 02-14-2022 End: 02-14-[address] Gerardo García Work Phone: [facility] Start: 01-26-2022 End: 01-26-[address] Gerardo García [facility] Start: 01-19-2022 End: 01-19-[address] Gerardo García [facility] 3[facility] Flr Start: 01-16-2022 End: 01-16-[address] Gerardo García Work Phone: [facility] Start: 12-30-2021 End: 12-30-2021 Admission to same day surgery center Dr. Gerardo García [facility] Start: 12-28-2021 End: 12-28-[address] Gerardo García Work Phone: [facility] Start: 12-08-2021 End: 12-08-[address] Gerardo García Work Phone: [facility] [place], y Office 3rd Flr Start: 12-07-2021 End: 12-07-[address] Gerardo García Work Phone: [facility] Start: 12-06-2021 End: 12-06-[address] Gerardo García [facility] Start: 12-05-2021 End: 12-05-2021 Emergency department patient visit Dr. Gerardo García Work Phone: [facility] Start: 11-29-2021 Non-patient / Non-visit Dr. Lenny García Work Phone: [facility] Start: 11-29-2021 End: 11-29-2021 Admission to same day surgery center Dr. Gerardo García [facility] Phone[facility] Start: 11-10-[address] Gerardo García [facility] Phone[facility] Start: 11-08-[address] Gerardo García [facility] Phone[facility] Fl[facility] Start: 11-02-2021 End: 11-02-[address] Gerardo García Work Phone: [facility] Start: 11-01-[address] Gerardo García Work Phone: [facility] Start: 06-11-2018 End: 06-11-2018 Emergency department patient visit MARINA MONTANA Facility[facility] Procedures Date Procedure Procedure Detail Performing Clinician Start: 08-03-2025 Vitamin D, 25-hydrox y measurement Dr. Gerardo García MD Work Phone: Comment on above: Vitamin D StatusDefi ciency: <20 ng/mL (50nmol/L)Insufficiency: 20-30 ng/mL (50-75 nmol/L)Sufficiency: 30-100 ng/mL (75-250 nmol/L)Toxicity: >100 ng/mL (>250 nmol/L) Start: 07-06-[address] Gerardo boyer MD Work Phone: Start: 07-06-2025 Urnls dip stick/tabl et reagent auto microscopy Dr. Gerardo García MD Work Phone: Start: 04-15-[address] Gerardo García MD Work Phone: Start: 04-15-2025 Serum inorganic phos phate measurement Dr. Gerardo García MD Work Phone: Start: 03-20-2025 SARS-CoV-2, Influenz a & RSV (PCR) Dr. Gerardo García MD Work Phone: Start: 02-02-2025 Vitamin D, 25-hydrox y measurement Dr. Gerardo García MD Work Phone: Comment on above: Vitamin D StatusDefi ciency: <20 ng/mL (50nmol/L)Insufficiency: 20-30 ng/mL (50-75 nmol/L)Sufficiency: 30-100 ng/mL (75-250 nmol/L)Toxicity: >100 ng/mL (>250 nmol/L) Start: 01-07-2025 Assay of phosphorus inorganic Dr. Gerardo García MD Work Phone: Start: 01-07-2025 Measurement of renal function Dr. Gerardo García MD Work Phone: Comment on above: GFR Calc Start: 01-07-[address] Gerardo García MD Work Phone: Start: 11-03-2024 SARS-CoV-2, Influenz a & RSV (PCR) Dr. Gerardo García MD Work Phone: Start: 10-27-2024 SARS-CoV-2, Influenz a & RSV (PCR) Dr. Gerardo García MD Work Phone: Start: 09-29-2024 Exchange nephrostomy catheter prq w/img gid rs&i Ghulam Rivera DO Work Phone: Start: 06-16-2024 Exchange nephrostomy catheter prq w/img gid rs&i Andres Wyatt MD Work Phone: Start: 06-16-2024 Njx px antegrde nfro sgrm &/urtrgrm exstng acess Andres Wyatt MD Work Phone: Start: 05-13-2024 Exchange nephrostomy catheter prq w/img gid rs&i Rocío Oliveira MD Work Phone: Start: 02-15-[address] Lenny García Work Phone: Start: 02-14-2024 Bacteria identified in Blood by Culture Dr. Gerardo García Work Phone: Start: 02-14-[address] Gerardo boyer Work Phone: Start: 01-01-2024 Urography antegrade rs&i Jin Antonio MD Work Phone: Start: 11-16-2023 CT of abdomen and pe lvis without contrast Dr. Gerardo García Work Phone: Start: 11-16-2023 Plain chest X-ray Dr. Zahra García Work Phone: Start: 11-16-2023 Bacteria identified in Blood by Culture Dr. Gerardo García Work Phone: Start: 11-16-2023 SARS-CoV-2, Influenz a & RSV (PCR) Dr. Gerardo García Work Phone: Start: 11-16-[address] Gerardo boyer Work Phone: Start: 11-10-2023 Bacteria identified in Blood by Culture Dr. Gerardo García Work Phone: Start: 11-10-[address] Gerardo boyer Work Phone: Start: 11-06-[address] Gerardo boyer Work Phone: Start: 10-09-2023 CT of abdomen and pe lvis without contrast Dr. Gerardo García Work Phone: Start: 10-09-[address] Gerardo boyer Work Phone: Start: 10-09-2023 Dr. Gerardo guerra Work Phone: Start: 10-08-[address] Gerardo boyer Work Phone: Start: 10-08-2023 Dr. Gerardo guerra Work Phone: Start: 09-21-2023 CT of abdomen and pe lvis without contrast Dr. Gerardo García Work Phone: Start: 09-19-[address] Lenny García Work Phone: Start: 09-19-2023 Bacteria identified in Blood by Culture Dr. Gerardo García Work Phone: Start: 09-19-2023 Clost[address] difficil e detection Dr. Gerardo García Work Phone: Start: 09-19-[address] Gerardo boyer Work Phone: Start: 09-19-2023 Dr. Gerardo guerra Work Phone: Start: 08-17-2023 Investigation of transfusion reaction Dr. Gerardo García Work Phone: Start: 08-17-2023 Miscellaneous Culture D malathi García Work Phone: Start: 08-17-2023 Dr. Gerardo guerra Work Phone: Start: 08-06-2023 Cystoscopy and retro grade pyelography Dr. Gerardo García Work Phone: Start: 08-06-2023 Fluoroscopic guidance D malathi García Work Phone: Start: 08-02-2023 CT of abdomen and pe lvis without contrast Dr. Gerardo García Work Phone: Start: 08-02-2023 Bacteria identified in Blood by Culture Dr. Gerrado García Work Phone: Start: 08-02-[address] Gerardo boyer Work Phone: Start: 08-02-[address] Gerardo García Work Phone: Start: 08-02-2023 Dr. Gerardo guerra Work Phone: Start: 08-02-2023 Plain chest X-ray Dr. Zahra García Work Phone: Start: 07-20-2023 Coronavirus COVID-[address] Gerardo García Work Phone: Start: 07-20-2023 Influenza Types A,B Direct FA (LEVI) Dr. Gerardo García Work Phone: Start: 07-20-2023 Respiratory syncytia l virus antigen assay Dr. Gerardo García Work Phone: Start: 07-20-2023 Dr. Gerardo guerra Work Phone: Start: 06-19-2023 Investigation of transfusion reaction Dr. Gerardo García Work Phone: Start: 06-19-2023 Microbial culture, routine Dr. Gerardo García Work Phone: Start: 06-08-2023 Fluoroscopic guidance Jose Antonio García Work Phone: Start: 05-28-[address] Gerardo boyer Work Phone: Start: 05-14-2023 Influenza Types A,B Direct FA ([facility]) Dr. Gerardo García Work Phone: Start: 05-14-2023 Respiratory syncytia l virus antigen assay Dr. Gerardo García Work Phone: Start: 05-11-[address] Gerardo boyer Work Phone: Start: 05-10-[address] Gerardo boyer Work Phone: Start: 04-03-2023 End: 04-03-[address] Gerardo García Work Phone: Start: 02-22-2023 X-ray of cervical spine Dr. Gerardo García Work Phone: Start: 01-24-2023 Fluoroscopic guidance Jose Antonio García Work Phone: Start: 01-22-2023 Influenza Types A,B Direct FA ([facility]) Dr. Gerardo García Work Phone: Start: 01-22-2023 Respiratory syncytia l virus antigen assay Dr. Gerardo García Work Phone: Start: 07-29-2022 Plain chest X-ray Dr. Zahra García Work Phone: Start: 07-28-2022 Introduction to urin [place] tract Dr. Gerardo García Work Phone: Start: 07-28-2022 Fluoroscopic guidance Jose Antonio García Work Phone: Start: 05-12-2022 Plain chest X-ray Dr. Zahra García Work Phone: Start: 02-16-[address] Gerardo boyer Work Phone: Start: 01-26-2022 Plain chest X-ray Dr. Zahra García Work Phone: Start: 01-19-[address] Gerardo boyer Work Phone: Start: 01-19-2022 Diagnostic radiograp hy of abdomen, decubitus and erect Dr. Gerardo García Work Phone: Start: 12-30-2021 O.R. Fluoro for C-Arm D r. Gerardo García Work Phone: Start: 12-08-2021 Bacteria identified in Urine by Culture Dr. Gearrdo García Work Phone: Start: 12-06-[address] Gerardo boyer Work Phone: Start: 11-28-2021 SARS-CoV-2 Antigen (Rapid) Dr. Gerardo García Work Phone: Start: 08-12-2015 History of cataract extraction S/P laser cataract surgery Andres Wyatt MD Work Phone: Anaerobic microbial culture Dr. Gerardo García Work Phone: Bacteria identified in Blood by Culture Dr. Gerardo García Work Phone: Clostridium difficil e detection Dr. Gerardo García Work Phone: H/O: hysterectomy History of hysterectomy Dr. Gerardo García Work Phone: H/O: surgery History of excis ion of mass Dr. Gerardo García Work Phone: Comment on above: on kidney History of cholecystectomy History of cholecystectomy Dr. Gerardo García Work Phone: Influenza Types A,B Direct FA ([facility]) Dr. Gerardo García Work Phone: Influenza Types A,B Direct FA ([facility]) Dr. Gerardo García Work Phone: Influenza Types A,B Direct FA ([facility]) Dr. Gerardo García Work Phone: Influenza Types A,B Direct FA ([facility]) Dr. Gerardo García Work Phone: Investigation of transfusion reaction Dr. Gerardo García Work Phone: Microbial culture, routine Dr. Gerardo García Work Phone: Respiratory syncytia l virus antigen assay Dr. Gerardo García Work Phone: Respiratory syncytia l virus antigen assay Dr. Gerardo García Work Phone: Respiratory syncytia l virus antigen assay Dr. Gerardo García Work Phone: Respiratory syncytia l virus antigen assay Dr. Gerardo García Work Phone: SARS-CoV-2 & FLU Ant igen (Rapid) Dr. Gerardo García Work Phone: Urine culture Dr. Gerardo García Work Phone: Urine culture Dr. Gerardo García Work Phone: Urine culture Dr. Gerardo García Work Phone: Urine culture Dr. Gerardo García Work Phone: Urine culture Dr. Gerardo García Work Phone: Plan of Treatment Date Care Activity Detail Author Start: 01-20-2028 Diabetes Screening Diabetes Screening [facility] Start: 01-12-2028 Diabetes Screening Diabetes Screening [facility] Start: 12-06-2027 Diabetes Screening Diabetes Screening [facility] Start: 09-08-2027 Diabetes Screening Diabetes Screening [facility] Start: 06-19-2027 Diabetes Screening Diabetes Screening [facility] Start: 12-24-2026 Diabetes Screening Diabetes Screening [facility] Start: 11-24-2026 Diabetes Screening Diabetes Screening [facility] Start: 10-12-2026 Diabetes Screening Diabetes Screening [facility] Start: 01-19-2026 Creatinine measurement Serum Creatinine [facility] Start: 01-16-2026 Complete blood count Hemoglobin/Hematocrit [facility] Start: 12-28-2025 End: 12-28-2025 Patient encounter procedure 12/28/2025 8:45 AM EST Office Visit Urology [address] [place] [address] Jin Antonio MD [address] [place] [address] 1 year follow up Urology Comment on above: 1 year follow up Start: 08-11-2025 End: 08-11-2025 Admission to same day surgery center 08/11/2025 10:00 AM EDT - 08/11/2025 11:20 AM EDT Surgery MR INTERVENTIONAL RADIOLOGY [address] [place] [address] Rocío Palmer MD, MD [address] [place] [address] Bilateral Neph tube exchange - 2 grams Rocephin and moderate sedation - 10fr 35 cm Skater MR INTERVENTIONAL RADIOLOGY Comment on above: Bilateral Neph tube exchange - 2 grams R ocephin and moderate sedation - 10fr 35 cm Skater Start: 08-11-2025 End: 08-11-2025 Exchange nephrostomy catheter prq w/img gid rs&i PERC EXCHANGE NEPHROSTOMY CATH, INCLUDING DIAGNOSTIC NEPHROSTOGRAM/URETEROG CORRINA WHEN PERFORMED,IMAGING GUIDANCE AND ALL ASSOCIATED RAD S&I Hydronephrosis, unspecified hydronephrosis type 08/11/2025 10:00 AM EDT MR IR Start: 08-11-2025 Subsequent hospital visit by physician 08/11/2025 10:00 AM EDT Hospital Encounter MR INTERVENTIONAL RADIOLOGY [address] [place] [address] Rocío Palmer MD, MD [address] [place] [address] Hydronephrosis, unspecified hydronephrosis type [N13.30] MR INTERVENTIONAL RADIOLOGY Comment on above: Hydronephrosis, unspecified hydronephros is type [N13.30] Start: 07-20-2025 Influenza vaccination Influenza Vaccine (#1) [facility] Start: 07-09-2025 End: 07-09-2025 Admission to same day surgery center 07/09/2025 1:32 PM EDT - 07/09/2025 2:02 PM EDT Surgery MR INTERVENTIONAL RADIOLOGY [address] [place] [address] [place] [address] [facility] [address] [place], [place] [id number] neph tube check/exchange MR INTERVENTIONAL RADIOLOGY Comment on above: neph tube check/exchange Start: 07-09-2025 End: 07-09-2025 Exchange nephrostomy catheter prq w/img gid rs&i PERC EXCHANGE NEPHROSTOMY CATH, INCLUDING DIAGNOSTIC NEPHROSTOGRAM/URETEROG CORRINA WHEN PERFORMED,IMAGING GUIDANCE AND ALL ASSOCIATED RAD S&I Hydronephrosis, unspecified hydronephrosis type 07/09/2025 1:32 PM EDT MR IR Start: 07-09-2025 Subsequent hospital visit by physician 07/09/2025 1:32 PM EDT Hospital Encounter MR INTERVENTIONAL RADIOLOGY [address] [facility] [place] [address] [place] [address] [facility] [place] [address] Hydronephrosis, unspecified hydronephrosis type [N13.30] MR INTERVENTIONAL RADIOLOGY Comment on above: Hydronephrosis, unspecified hydronephros is type [N13.30] Start: 07-06-2025 Urine culture Urine Culture [facility] Start: 07-06-2025 [facility] Start: 03-30-2025 End: 03-30-2025 Patient encounter procedure 03/30/2025 9:45 AM EDT Office Visit Urology [address] [place], [place] [id number] Jin Antonio MD [address] [place], [place] [address] f/u 2 months Urology Comment on above: f/u 2 months Start: 03-02-2025 End: 03-02-2025 Patient encounter procedure 03/02/2025 11:00 AM EDT Office Visit Urology [address] [place], [place] [id number] Jin Antonio MD [address] [place], [place] [id number] 6 month f/u Urology Comment on above: 6 month f/u Start: 02-23-2025 End: 02-23-2025 Admission to same day surgery center MR INTERVENTIONAL RADIOLOGY Comment on above: PERC EXCHANGE NEPHROSTOMY CATH, INCLUDIN G DIAGNOSTIC NEPHROSTOGRAM/URETEROGRAM WHEN PERFORMED,IMAGING GUIDANCE AND ALL ASSOCIATED RAD S&I Start: 02-23-2025 End: 02-23-2025 Exchange nephrostomy catheter prq w/img gid rs&i PERC EXCHANGE NEPHROSTOMY CATH, INCLUDING DIAGNOSTIC NEPHROSTOGRAM/URETEROG CORRINA WHEN PERFORMED,IMAGING GUIDANCE AND ALL ASSOCIATED RAD S&I Hydronephrosis, unspecified hydronephrosis type 02/23/2025 10:00 AM EDT MR IR Start: 02-23-2025 Subsequent hospital visit by physician 02/23/2025 10:00 AM EDT Hospital Encounter MR INTERVENTIONAL RADIOLOGY [address] [place] [address] [place] [address] [facility] , [address] [id number] Hydronephrosis, unspecified hydronephrosis type [N13.30] MR INTERVENTIONAL RADIOLOGY Comment on above: Hydronephrosis, unspecified hydronephros is type [N13.30] Start: 01-27-2025 End: 02-26-2026 XR Abdomen Supine and Upright [facility] Work Phone: Comment on above: Expected: 01/27/2025, Expires: Start: 01-27-2025 End: 01-27-2025 Patient encounter procedure 01/27/2025 8:40 AM EDT Office Visit Urology [address] [place] [address] Corina Ruffin, ELECTRICAL WORKER.MEDIA TECHNICIAN [address] [place] [address] f/u per ML Urology Comment on above: f/u per ML Start: 01-26-2025 End: 01-26-2025 ambulatory 01/26/2025 3:15 PM EDT Infusion Center [facility] [address] [place] [address] [facility] Comment on above: [facility] Start: 01-14-2025 Guidance for exchange of nephrostomy tube of Kidney IR NEPH TUBE CHANGE Radiology Routine Hydronephrosis, unspecified hydronephrosis type [N13.30] Expected: 01/14/2025 (Approximate) [facility] Comment on above: Expected: 01/14/2025 (Approximate) Start: 01-12-2025 End: 01-12-2025 Admission to same day surgery center 01/12/2025 8:00 AM EST - 01/12/2025 9:00 AM EST Surgery MR INTERVENTIONAL RADIOLOGY [address] [facility] [place] [address] Rocío Palmer MD, MD [address] [place] [address] PERC EXCHANGE NEPHROSTOMY CATH, INCLUDING DIAGNOSTIC NEPHROSTOGRAM/URETEROG CORRINA WHEN PERFORMED,IMAGING GUIDANCE AND ALL ASSOCIATED RAD S&I MR INTERVENTIONAL RADIOLOGY Comment on above: PERC EXCHANGE NEPHROSTOMY CATH, INCLUDIN G DIAGNOSTIC NEPHROSTOGRAM/URETEROGRAM WHEN PERFORMED,IMAGING GUIDANCE AND ALL ASSOCIATED RAD S&I Start: 01-12-2025 End: 01-12-2025 Exchange nephrostomy catheter prq w/img gid rs&i PERC EXCHANGE NEPHROSTOMY CATH, INCLUDING DIAGNOSTIC NEPHROSTOGRAM/URETEROG CORRINA WHEN PERFORMED,IMAGING GUIDANCE AND ALL ASSOCIATED RAD S&I Hydronephrosis, unspecified hydronephrosis type 01/12/2025 8:00 AM EST MR IR Start: 01-12-2025 Subsequent hospital visit by physician 01/12/2025 8:00 AM EST Hospital Encounter MR INTERVENTIONAL RADIOLOGY [address] [facility] [place] [address] Rocío Palmer MD, MD [address] [place] [address] Hydronephrosis, unspecified hydronephrosis type [N13.30] MR INTERVENTIONAL RADIOLOGY Comment on above: Hydronephrosis, unspecified hydronephros is type [N13.30] Start: 01-03-2025 BP Controlled (<130/80) BP Controlled (<130/80) [facility] Start: 11-19-2024 Advance Directive Discussion Advance Directive Discussion [facility] Start: 11-19-2024 Medicare Advantage Annual Wellness Visit Medicare Advantage Annual Wellness Visit [facility] Start: 11-17-2024 End: 11-17-2024 Admission to same day surgery center 11/17/2024 8:00 AM EST - 11/17/2024 9:00 AM EST Surgery MR INTERVENTIONAL RADIOLOGY [address] [place] [address] [place] [address] [address] PERC EXCHANGE NEPHROSTOMY CATH, INCLUDING DIAGNOSTIC NEPHROSTOGRAM/URETEROG CORRINA WHEN PERFORMED,IMAGING GUIDANCE AND ALL ASSOCIATED RAD S&I MR INTERVENTIONAL RADIOLOGY Comment on above: PERC EXCHANGE NEPHROSTOMY CATH, INCLUDIN G DIAGNOSTIC NEPHROSTOGRAM/URETEROGRAM WHEN PERFORMED,IMAGING GUIDANCE AND ALL ASSOCIATED RAD S&I Start: 11-17-2024 End: 11-17-2024 Exchange nephrostomy catheter prq w/img gid rs&i PERC EXCHANGE NEPHROSTOMY CATH, INCLUDING DIAGNOSTIC NEPHROSTOGRAM/URETEROG CORRINA WHEN PERFORMED,IMAGING GUIDANCE AND ALL ASSOCIATED RAD S&I Bilateral hydronephrosis 11/17/2024 8:00 AM EST MR IR Start: 11-17-2024 Subsequent hospital visit by physician 11/17/2024 8:00 AM EST Hospital Encounter MR INTERVENTIONAL [place] [address] [place] [address] [address] Bilateral hydronephrosis [N13.30] MR INTERVENTIONAL RADIOLOGY Comment on above: Bilateral hydronephrosis [N13.30] Start: 09-29-2024 End: 09-29-2024 Admission to same day surgery center 09/29/2024 10:00 AM EST - 09/29/2024 11:00 AM EST Surgery MR INTERVENTIONAL RADIOLOGY [address] [place] [address] [place] [address] [facility] [place] [address] PERC EXCHANGE NEPHROSTOMY CATH, INCLUDING DIAGNOSTIC NEPHROSTOGRAM/URETEROG CORRINA WHEN PERFORMED,IMAGING GUIDANCE AND ALL ASSOCIATED RAD S&I MR INTERVENTIONAL RADIOLOGY Comment on above: PERC EXCHANGE NEPHROSTOMY CATH, INCLUDIN G DIAGNOSTIC NEPHROSTOGRAM/URETEROGRAM WHEN PERFORMED,IMAGING GUIDANCE AND ALL ASSOCIATED RAD S&I Start: 09-29-2024 End: 09-29-2024 Exchange nephrostomy catheter prq w/img gid rs&i PERC EXCHANGE NEPHROSTOMY CATH, INCLUDING DIAGNOSTIC NEPHROSTOGRAM/URETEROG CORRINA WHEN PERFORMED,IMAGING GUIDANCE AND ALL ASSOCIATED RAD S&I Other hydronephrosis 09/29/2024 10:00 AM EST MR IR Start: 09-29-2024 Subsequent hospital visit by physician 09/29/2024 10:00 AM EST Hospital Encounter MR INTERVENTIONAL RADIOLOGY [address] [place] [address] [place] [address] [facility] [place] [address] Other hydronephrosis [N13.39] MR INTERVENTIONAL RADIOLOGY Comment on above: Other hydronephrosis [N13.39] Start: 09-02-2024 End: 09-02-2024 Admission to same day surgery center 09/02/2024 10:00 AM EDT - 09/02/2024 11:00 AM EDT Surgery MR INTERVENTIONAL RADIOLOGY [address] [place] [address] [place] [address] [facility] [place] [address] PERC EXCHANGE NEPHROSTOMY CATH, INCLUDING DIAGNOSTIC NEPHROSTOGRAM/URETEROG CORRINA WHEN PERFORMED,IMAGING GUIDANCE AND ALL ASSOCIATED RAD S&I MR INTERVENTIONAL RADIOLOGY Comment on above: PERC EXCHANGE NEPHROSTOMY CATH, INCLUDIN G DIAGNOSTIC NEPHROSTOGRAM/URETEROGRAM WHEN PERFORMED,IMAGING GUIDANCE AND ALL ASSOCIATED RAD S&I Start: 09-02-2024 End: 09-02-2024 Exchange nephrostomy catheter prq w/img gid rs&i PERC EXCHANGE NEPHROSTOMY CATH, INCLUDING DIAGNOSTIC NEPHROSTOGRAM/URETEROG CORRINA WHEN PERFORMED,IMAGING GUIDANCE AND ALL ASSOCIATED RAD S&I Other hydronephrosis 09/02/2024 10:00 AM EDT MR IR Start: 09-02-2024 Subsequent hospital visit by physician 09/02/2024 10:00 AM EDT Hospital Encounter MR INTERVENTIONAL RADIOLOGY [address] [place] [address] [place], [address] [address] [place], [place] [id number] Other hydronephrosis [N13.39] MR INTERVENTIONAL RADIOLOGY Comment on above: Other hydronephrosis [N13.39] Start: 07-29-2024 Subsequent hospital visit by physician 07/29/2024 Hospital Encounter [facility] Surgery [address] [facility] [place] [address] Jin Antonio MD [address] [place], [place] [address] Bilateral hydronephrosis [N13.30] [facility] Surgery Comment on above: Bilateral hydronephrosis [N13.30] Start: 07-20-2024 Covid-19 Vaccine ( season) Covid-19 Vaccine ( season) [facility] Start: 07-20-2024 Influenza vaccination [facility] Start: 07-08-2024 End: 07-08-2024 Admission to same day surgery center 07/08/2024 10:00 AM EDT - 07/08/2024 10:30 AM EDT Surgery MR INTERVENTIONAL RADIOLOGY [address] [place] [address] [place] [address] [facility] Esther Henriquez, [address] [place], [place] [id number] bilateral nephrostomy tube exchange MR INTERVENTIONAL RADIOLOGY Comment on above: bilateral nephrostomy tube exchange Start: 07-08-2024 Subsequent hospital visit by physician 07/08/2024 10:00 AM EDT Hospital Encounter MR INTERVENTIONAL RADIOLOGY [address] [place] [address] [place] [address] [address] Hydronephrosis, unspecified hydronephrosis type [N13.30] MR INTERVENTIONAL RADIOLOGY Comment on above: Hydronephrosis, unspecified hydronephros is type [N13.30] Start: 07-08-2024 End: 07-08-2024 Exchange nephrostomy catheter prq w/img gid rs&i MR IR Start: 07-07-2024 End: 07-07-2024 Patient encounter procedure 07/07/2024 11:15 AM EDT Office Visit Urology [address] [place], [place] [id number] Jin Antonio MD [address] [place], [place] [id number] 4 month follow up - (Neph Tube change done early april) Urology Comment on above: 4 month follow up - (Neph Tube change do ne early april) Start: 06-16-2024 End: 06-16-2024 Exchange nephrostomy catheter prq w/img gid rs&i PERC EXCHANGE NEPHROSTOMY CATH, INCLUDING DIAGNOSTIC NEPHROSTOGRAM/URETEROG CORRINA WHEN PERFORMED,IMAGING GUIDANCE AND ALL ASSOCIATED RAD S&I Hydronephrosis, unspecified hydronephrosis type 06/16/2024 10:04 AM EDT MR IR Start: 05-13-2024 End: 05-13-2024 Admission to same day surgery center 05/13/2024 8:00 AM EDT - 05/13/2024 9:00 AM EDT Surgery MR INTERVENTIONAL RADIOLOGY [address] [place] [address] [place] [address] [address] PERC EXCHANGE NEPHROSTOMY CATH, INCLUDING DIAGNOSTIC NEPHROSTOGRAM/URETEROG CORRINA WHEN PERFORMED,IMAGING GUIDANCE AND ALL ASSOCIATED RAD S&I MR INTERVENTIONAL RADIOLOGY Comment on above: PERC EXCHANGE NEPHROSTOMY CATH, INCLUDIN G DIAGNOSTIC NEPHROSTOGRAM/URETEROGRAM WHEN PERFORMED,IMAGING GUIDANCE AND ALL ASSOCIATED RAD S&I Start: 05-13-2024 End: 05-13-2024 Exchange nephrostomy catheter prq w/img gid rs&i PERC EXCHANGE NEPHROSTOMY CATH, INCLUDING DIAGNOSTIC NEPHROSTOGRAM/URETEROG CORRINA WHEN PERFORMED,IMAGING GUIDANCE AND ALL ASSOCIATED RAD S&I Hydronephrosis, unspecified hydronephrosis type 05/13/2024 8:00 AM EDT MR IR Start: 05-13-2024 Subsequent hospital visit by physician 05/13/2024 8:00 AM EDT Hospital Encounter MR INTERVENTIONAL RADIOLOGY [address] [place] [address] [place] [address] [facility] , [address] [address] Hydronephrosis, unspecified hydronephrosis type [N13.30] MR INTERVENTIONAL RADIOLOGY Comment on above: Hydronephrosis, unspecified hydronephros is type [N13.30] Start: 04-08-2024 End: 04-08-2024 Admission to same day surgery center 04/08/2024 8:00 AM EDT - 04/08/2024 8:45 AM EDT Surgery MR INTERVENTIONAL RADIOLOGY [address] [place] [address] Rocío Palmer MD, MD [address] [place] [address] PERC EXCHANGE NEPHROSTOMY CATH, INCLUDING DIAGNOSTIC NEPHROSTOGRAM/URETEROG CORRINA WHEN PERFORMED,IMAGING GUIDANCE AND ALL ASSOCIATED RAD S&I MR INTERVENTIONAL RADIOLOGY Comment on above: PERC EXCHANGE NEPHROSTOMY CATH, INCLUDIN G DIAGNOSTIC NEPHROSTOGRAM/URETEROGRAM WHEN PERFORMED,IMAGING GUIDANCE AND ALL ASSOCIATED RAD S&I Start: 04-08-2024 End: 04-08-2024 Exchange nephrostomy catheter prq w/img gid rs&i PERC EXCHANGE NEPHROSTOMY CATH, INCLUDING DIAGNOSTIC NEPHROSTOGRAM/URETEROG CORRINA WHEN PERFORMED,IMAGING GUIDANCE AND ALL ASSOCIATED RAD S&I Hydronephrosis, unspecified hydronephrosis type 04/08/2024 8:00 AM EDT MR IR Start: 04-08-2024 Subsequent hospital visit by physician 04/08/2024 8:00 AM EDT Hospital Encounter MR INTERVENTIONAL RADIOLOGY [address] [place] [address] Rocío Palmer MD, [address] [place] [address] Hydronephrosis, unspecified hydronephrosis type [N13.30] MR INTERVENTIONAL RADIOLOGY Comment on above: Hydronephrosis, unspecified hydronephros is type [N13.30] Start: 03-18-2024 End: 03-18-2024 Plmt nephrostomy cath prq new access rs&i PERC PLACEMENT NEPHROSTOMY CATH,INCLUDING DIAGNOSTIC NEPHROSTOGRAM/URETEROG CORRINA WHEN PERFORMED,IMAGING GUIDANCE AND ALL ASSOCIATED RAD S&I Hydronephrosis, unspecified hydronephrosis type 03/18/2024 2:53 PM EDT MR IR Start: 02-17-2024 Patient discharge [facility] Start: 02-14-2024 Application of intermittent pneumatic compression device [facility] Start: 02-14-2024 Assessment of risk of venous thromboembolism [facility] Start: 02-14-2024 Insertion of catheter into peripheral vein [facility] Start: 02-14-2024 Measuring intake and output [facility] Start: 02-14-2024 Providing care according to standard [facility] Start: 02-14-2024 Provision of activity privileges [facility] Start: 02-14-2024 Referral to service [facility] Start: 02-14-2024 [facility] Start: 02-14-2024 Following clinical pathway protocol [facility] Start: 02-14-2024 Verification routine [facility] Start: 02-14-2024 Admission procedure [facility] Start: 02-14-2024 Hospital admission, emergency, from emergency room, medical nature [facility] Start: 02-14-2024 End: 02-14-2024 [facility] Start: 02-14-2024 End: 02-14-2024 Blood culture [facility] Start: 02-14-2024 Bacteria identified in Blood by Culture Blood Culture [facility] Start: 02-14-2024 Bacteria identified in Urine by Culture [facility] Start: 02-14-2024 Urine culture Urine Culture [facility] Start: 11-19-2023 Advance Directive Discussion Advance Directive Discussion [facility] Start: 11-19-2023 Behavioral Health Screening Behavioral Health Screening [facility] Start: 11-19-2023 Depression Assessment Depression Assessment [facility] Start: 11-17-2023 [facility] Start: 11-16-2023 [facility] Start: 11-13-2023 Patient discharge [facility] Start: 11-10-2023 Following clinical pathway protocol [facility] Start: 11-10-2023 Cardiac monitoring [facility] Start: 11-10-2023 Catheterization of vein [facility] Start: 11-10-2023 Notification of physician [facility] Start: 11-10-2023 Admission procedure [facility] Start: 11-10-2023 Hospital admission, emergency, from emergency room, medical nature [facility] Start: 11-10-2023 End: 11-10-2023 [facility] Start: 11-10-2023 End: 11-10-2023 Blood culture [facility] Start: 11-06-2023 [facility] Start: 11-06-2023 End: 11-06-2023 [facility] Start: 10-09-2023 [facility] Start: 10-09-2023 End: 10-09-2023 [facility] Start: 10-09-2023 End: 10-09-2023 Blood culture [facility] Start: 10-08-2023 Blood culture [facility] Start: 10-08-2023 End: 10-08-2023 [facility] Start: 10-08-2023 Bacteria identified in Blood by Culture Blood Culture [facility] Start: 10-08-2023 Urine culture [facility] Start: 09-29-2023 Blood chemistry [facility] Start: 09-28-2023 Blood chemistry [facility] Start: 09-27-2023 Blood chemistry [facility] Start: 09-26-2023 Blood chemistry [facility] Start: 09-25-2023 Blood chemistry [facility] Start: 09-24-2023 Blood chemistry [facility] Start: 09-23-2023 Blood chemistry [facility] Start: 09-22-2023 Patient discharge [facility] Start: 09-20-2023 Consultation [facility] Start: 09-20-2023 Inhalation therapy procedure [facility] Start: 09-19-2023 Blood culture [facility] Start: 09-19-2023 Application of intermittent pneumatic compression device [facility] Start: 09-19-2023 Following clinical pathway protocol [facility] Start: 09-19-2023 Assessment of risk of venous thromboembolism [facility] Start: 09-19-2023 Consultation [facility] Start: 09-19-2023 Insertion of catheter into peripheral vein [facility] Start: 09-19-2023 Measuring intake and output [facility] Start: 09-19-2023 Notification of physician [facility] Start: 09-19-2023 Providing care according to standard [facility] Start: 09-19-2023 Provision of activity privileges [facility] Start: 09-19-2023 Vital signs measurements [facility] Start: 09-19-2023 [facility] Start: 09-19-2023 Bacteria identified in Blood by Culture Blood Culture [facility] Start: 09-19-2023 Bacteria identified in Urine by Culture Urine Culture [facility] Start: 09-19-2023 Verification routine [facility] Start: 09-19-2023 Admission procedure [facility] Start: 09-19-2023 Hospital admission, emergency, from emergency room, medical nature [facility] Start: 09-19-2023 [facility] Start: 09-19-2023 Enteric precautions [facility] Start: 09-19-2023 Patient referral to dietitian [facility] Start: 08-07-2023 Referral to service [facility] Start: 08-07-2023 Patient discharge [facility] Start: 08-07-2023 [facility] Start: 08-06-2023 Referral to service [facility] Start: 08-05-2023 Consultation [facility] Start: 08-02-2023 Consultation [facility] Start: 08-02-2023 Following clinical pathway protocol [facility] Start: 08-02-2023 Assessment of risk of venous thromboembolism [facility] Start: 08-02-2023 Inhalation therapy procedure [facility] Start: 08-02-2023 Insertion of catheter into peripheral vein [facility] Start: 08-02-2023 Measuring intake and output [facility] Start: 08-02-2023 Providing care according to standard [facility] Start: 08-02-2023 Provision of activity privileges [facility] Start: 08-02-2023 [facility] Start: 08-02-2023 Admission procedure [facility] Start: 07-20-2023 Covid-19 Vaccine () Covid-19 Vaccine () [facility] Start: 07-20-2023 Influenza vaccination Influenza Vaccine (#1) [facility] Start: 06-08-2023 Anes transurethral w/urethrocystoscopy nos ANESTH BLADDER SURGERY [facility] Start: 06-08-2023 Cysto w/insert ureteral stent CYSTOSCOPY AND TREATMENT [facility] Start: 06-08-2023 Ambulation without limitation [facility] Start: 06-08-2023 Medication education [facility] Start: 06-08-2023 Patient discharge [facility] Start: 06-08-2023 Taking patient vital signs [facility] Start: 06-08-2023 [facility] Start: 06-06-2023 Iv infusion therapy/prophylaxis /dx 1st to 1 hr [facility]: 05-28-2023 Urine culture Urine Culture [facility] Start: 05-28-2023 [facility] Start: 05-22-2023 Iv infusion therapy/prophylaxis /dx 1st to 1 hr [facility] Start: 05-22-2023 Following clinical pathway protocol [facility] Start: 05-19-2023 Following clinical pathway protocol [facility] Start: 05-16-2023 Iv infusion therapy/prophylaxis /dx 1st to 1 hr THER/PROPH/DIAG IV INF INIT [facility] Start: 01-24-2023 Anes transurethral w/urethrocystoscopy nos ANESTH BLADDER SURGERY [facility] Start: 01-24-2023 Cysto w/insert ureteral stent CYSTOSCOPY AND TREATMENT [facility] Start: 01-24-2023 Ambulation without limitation [facility] Start: 01-24-2023 Medication education [facility] Start: 01-24-2023 Patient discharge [facility] Start: 01-24-2023 Taking patient vital signs [facility] Start: 01-24-2023 [facility] Start: 11-19-2022 Advance Directive Discussion Advance Directive Discussion [facility] Start: 11-19-2022 Depression Assessment Depression Assessment [facility] Start: 09-18-2022 [facility] Work Phone: Start: 08-01-2022 Patient discharge [facility] Work Phone: Start: 07-31-2022 [facility] Work Phone: Start: 07-30-2022 Following clinical pathway protocol [facility] Work Phone: Start: 07-30-2022 Consultation [facility] Work Phone: Start: 07-30-2022 Following clinical pathway protocol [facility] Work Phone: Start: 07-30-2022 Referral to service [facility] Work Phone: Start: 07-30-2022 Referral to occupational therapist [facility] Work Phone: Start: 07-29-2022 Assessment of risk of venous thromboembolism [facility] Work Phone: Start: 07-29-2022 Consultation [facility] Work Phone: Start: 07-29-2022 Documentation procedure [facility] Work Phone: Start: 07-29-2022 Incentive spirometry [facility] Work Phone: Start: 07-29-2022 Inhalation therapy procedure [facility] Work Phone: Start: 07-29-2022 Insertion of catheter into peripheral vein [facility] Work Phone: Start: 07-29-2022 Introduction of urinary catheter [facility] Work Phone: Start: 07-29-2022 Measuring intake and output [facility] Work Phone: Start: 07-29-2022 Oxygen therapy [facility] Work Phone: Start: 07-29-2022 Providing care according to standard [facility] Work Phone: Start: 07-29-2022 Provision of activity privileges [facility] Work Phone: Start: 07-29-2022 [facility] Work Phone: Start: 07-29-2022 Admission procedure [facility] Work Phone: Start: 07-29-2022 End: 07-29-2022 Blood culture [facility] Work Phone: Start: 07-28-2022 Anes transurethral w/urethrocystoscopy nos ANESTH BLADDER SURGERY [facility] Work Phone: Start: 07-28-2022 Cysto w/insert ureteral stent CYSTOSCOPY AND TREATMENT [facility] Work Phone: Start: 07-28-2022 Ambulation without limitation [facility] Work Phone: Start: 07-28-2022 Medication education [facility] Work Phone: Start: 07-28-2022 Patient discharge [facility] Work Phone: Start: 07-28-2022 Taking patient vital signs [facility] Work Phone: Start: 07-28-2022 [facility] Work Phone: Start: 03-20-2022 Urine culture Urine Culture [facility] Work Phone: Start: 12-30-2021 Anes transurethral w/urethrocystoscopy nos ANESTH BLADDER SURGERY [facility] Work Phone: Start: 12-30-2021 Cysto w/insert ureteral stent CYSTOSCOPY AND TREATMENT [facility] Work Phone: Start: 11-29-2021 Anesthesia vascular shunt/shunt revision ANESTH VASCULAR SHUNT SURG [facility] Work Phone: Start: 12-29-2020 Pneumococcal Vaccine: 50+ (2 of 2 - PCV) Pneumococcal Vaccine: 50+ (2 of 2 - PCV) [facility] Start: 12-29-2020 Pneumococcal Vaccine: 65+ (2 - PCV) Pneumococcal Vaccine: 65+ (2 - PCV) [facility] Start: 12-29-2020 Pneumococcal Vaccine: 65+ (2 of 2 - PCV) Pneumococcal Vaccine: 65+ (2 of 2 - PCV) [facility] Start: 2017 Bone Density Screening Bone Density Screening [facility] Start: 2017 Screening for osteoporosis Bone Density Screening [facility] Start: 2012 RSV Vaccine (1 - 1-dose 60+ series) RSV Vaccine (1 - 1-dose 60+ series) [facility] Start: 2012 RSV Vaccine (1 - Risk 60-74 years 1-dose series) RSV Vaccine (1 - Risk 60-74 years 1-dose series) [facility] Start: 2002 Shingrix Vaccine (1 of 2) Shingrix Vaccine (1 of 2) [facility] Start: 1997 Cologuard (FIT-DNA) Cologuard (FIT-DNA) [facility] Start: 1997 Colonoscopy Colonoscopy [facility] Start: 1997 Colorectal Cancer Screening Colorectal Cancer Screening [facility] Start: [address] Colonography [facility] Start: 1997 Fecal Occult Blood Fecal Occult Blood [facility] Start: 1997 Lipid 1996 panel - Serum or Plasma Lipid Screening [facility] Start: 1997 Lipid panel Lipid Screening [facility] Start: 1997 Screening for malignant neoplasm of colon [facility] Start: 1997 Sigmoidoscopy Sigmoidoscopy [facility] Start: 1992 Mammography Mammogram Screening [facility] Start: 1992 Screening for malignant neoplasm of breast Mammogram Screening [facility] Start: 1971 Urine microalbumin profile DTaP,Tdap,Td Vaccine (1 - Tdap) [facility] Start: 1970 Annual PCP Team Chronic Disease Visit Annual PCP Team Chronic Disease Visit [facility] Start: 1970 Anxiety Screening Anxiety Screening [facility] Start: 1970 BP Controlled (<130/80) BP Controlled (<130/80) [facility] Start: 1970 Depression Screening Depression Screening [facility] Start: 1970 Hepatitis C Screening Hepatitis C Screening [facility] Start: 1970 Hepatitis C screening Hepatitis C Screening [facility] Start: 1970 Spirometry Spirometry [facility] Bacteria identified in Blood by Culture Blood Culture [facility] Work Phone: Clostridioides diffi cile DNA [Presence] in Unspecified specimen by BOBBI with probe detection [facility] Cysto w/insert urete ral stent CYSTOSCOPY, INSERTION STENT URETERAL J Bilateral hydronephrosis MR OR Gastrointestinal pathogens panel - Stool by BOBBI with probe detection [facility] Guidance for dilatio n of existing nephrostomy tract and placement of nephrostomy tube at new site of Kidney IR NEPHROSTOMY CONSULT Radiology Routine Other hydronephrosis Ordered: 06/15/2024 [facility] Work Phone: Comment on above: Ordered: 06/15/2024 Guidance for exchang e of nephrostomy tube of Kidney IR NEPH TUBE CHANGE Radiology Routine Bilateral hydronephrosis Ordered: 01/22/2024 [facility] Work Phone: Comment on above: Ordered: 01/22/2024 Guidance for exchang e of nephrostomy tube of Kidney IR NEPH TUBE CHANGE Radiology Timed Bilateral hydronephrosis Ordered: 03/03/2024 [facility] Work Phone: Comment on above: Ordered: 03/03/2024 Guidance for exchang e of nephrostomy tube of Kidney IR NEPH TUBE CHANGE Radiology Routine Hydronephrosis, unspecified hydronephrosis type Ordered: 07/08/2025 [facility] Work Phone: Comment on above: Ordered: 07/08/2025 Guidance for percuta neous placement of nephrostomy tube of Kidney IR NEPHROSTOMY TUBE PLACE Radiology Routine Bilateral hydronephrosis Ordered: 02/09/2024 [facility] Work Phone: Comment on above: Ordered: 02/09/2024 Guidance for percuta neous placement of nephrostomy tube of Kidney IR NEPHROSTOMY TUBE PLACE Radiology STAT Hydronephrosis of left kidney Ordered: 03/18/2024 [facility] Work Phone: Comment on above: Ordered: 03/18/2024 IR NEPHROSTOGRAM IR NEPHROSTOGRA M Radiology Routine Bilateral hydronephrosis Ordered: 12/24/2023 [facility] Work Phone: Comment on above: Ordered: 12/24/2023 Lactoferrin [Presenc e] in Stool by Immunoassay [facility] Ova and parasites identified in Unspecified specimen by Light microscopy [facility] Patient Education [facility] Work Phone: Patient referral [facility] Work Phone: UA DIP, URINE (POC) UA DIP, URIN E (POC) Lab Routine Hydronephrosis, unspecified hydronephrosis type [N13.30] Ordered: 12/22/2024 [facility] Work Phone: Comment on above: Ordered: 12/22/2024 Urine culture Urine Culture [facility] Work Phone: [facility] MR OR [facility] Immunizations Immunization Date Immunization Notes Care Provider [facility] 11-08-2021 Covid (Moderna) Dr. Gerardo García Work Phone: [facility] 08-09-2021 influenza, injectabl e, quadrivalent, preservative free Dr. Gerardo García Work Phone: [facility] 08-09-2021 influenza, seasonal, injectable Dr. Gerardo García Work Phone: [facility] 08-09-2021 influenza virus vacc ine, unspecified formulation Andres Wyatt MD Work Phone: [facility] 05-11-2021 Covid ([employer] Gu[employer]) Dr. Gerardo García Work Phone: [facility] 08-10-2020 influenza, injectabl e, quadrivalent, preservative free Dr. Gerardo García Work Phone: [facility] 08-10-2020 influenza, seasonal, injectable Dr. Gerardo García Work Phone: [facility] 08-04-[address] Gerardo García Work Phone: [facility] 12-29-2019 pneumococcal polysaccharide vaccine, [address] Gerardo García Work Phone: [facility] 06-30-2019 pneumococcal polysaccharide vaccine, [address] Gerardo García Work Phone: [facility] 11-23-2017 influenza, injectabl e, quadrivalent, preservative free Dr. Gerardo García Work Phone: [facility] 11-23-2017 influenza, seasonal, injectable Dr. Gerardo García Work Phone: [facility] Payers Date Payer Category Payer Self-pay [id number] 2019 Medicare HUMANA MEDICARE HUMANA GOLD PLUS [id number] 2019-Present [phone] [place] [id number] [facility] [place] [id number] 2019 Medicare (Managed Care) HUMANA G OLD PLUS [id number] 2019 Medicare [id number] 1950 Unknown [id number] Medicaid [id number] Medicare [id number] Medicare [id number] Unknown [id number] Unknown [id number] Unknown [id number] Unknown [id number] 462 Unknown [id number] 462 Unknown [id number] 462 Unknown [id number] 462 Unknown [id number] 462 Unknown [id number] 462 Unknown [id number] 462 Unknown [id number] 462 Unknown [id number] Unknown [id number] 462 Social History Date Type Detail Facility Start: 12-05-2021 End: 02-14-2024 Tobacco smoking status WYIS Unknown if ever smoked [facility] Start: 09-23-2020 None [facility] Start: 12-19-2020 Spouse/ Signif icant Other [facility] Start: 02-21-2021 Non-smoker [facility] Start: 1950 Sex Assigned At Female W [facility] Start: 01-04-2015 End: 09-06-2024 Tobacco smoking status NHIS Ex-smoker [facility] Start: 11-19-2007 End: 01-04-2008 History of tobacco use Current smoker [facility] Start: 11-19-2007 End: 01-04-2008 History of tobacco use Cigarette Smoker [facility] Start: 01-04-2015 End: 08-11-2024 Tobacco use and exposure Smokeless tobacco non-user [facility] Start: 10-11-2023 End: 11-26-2023 History of Social function [facility] Start: 10-11-2023 End: 11-26-2023 Tobacco use panel [facility] How hard is it for y ou to pay for the very basics like food, housing, medical care, and heating Not very hard [facility] (I/We) worried juany er (my/our) food would run out before (I/we) got money to buy more. Never true [facility] Start: 10-20-2012 In the past 12 month s, has lack of transportation kept you from medical appointments or from getting medications? No [facility] In the past 12 month s, was there a time when you were not able to pay the mortgage or rent on time? No [facility] Start: 1950 Sex Assigned At Not on file [facility] Start: 02-11-2024 End: 06-15-2025 Alcohol intake Lifetime non-drinker (finding) [facility] Start: 02-10-2025 Sex Female (finding) [facility] NEGATED: Highlighted row [facility] NEGATED: Highlighted rowStart: NINF History of tobacco use Passive smoker [facility] Medical Equipment Procedure Code Equipment Code Equipment Origin al Text Equipment Identifier Dates Insertion, catheter, hemodialysis CATHETER, CVD PLNDRME 19CM FDA Start: 06-04-2019 Insertion, catheter, hemodialysis CATHETER,CVD PLNDRME 23CM FDA Start: 06-06-2019 Insertion, catheter, hemodialysis CATHETER, CVD PLNDRME 19CM FDA Start: 06-04-2019 Insertion, catheter, hemodialysis CATHETER,CVD PLNDRME 23CM FDA Start: 06-06-2019 Insertion, catheter, hemodialysis CATHETER, CVD PLNDRME 19CM FDA Start: 06-04-2019 Insertion, catheter, hemodialysis CATHETER,CVD PLNDRME 23CM FDA Start: 06-06-2019 Insertion, catheter, hemodialysis CATHETER, CVD PLNDRME 19CM FDA Start: 06-04-2019 Insertion, catheter, hemodialysis CATHETER,CVD PLNDRME 23CM FDA Start: 06-06-2019 Insertion, catheter, hemodialysis CATHETER, CVD PLNDRME 19CM FDA Start: 06-04-2019 Insertion, catheter, hemodialysis CATHETER,CVD PLNDRME 23CM FDA Start: 06-06-2019 Insertion, catheter, hemodialysis CATHETER, CVD PLNDRME 19CM FDA Start: 06-04-2019 Insertion, catheter, hemodialysis CATHETER,CVD PLNDRME 23CM FDA Start: 06-06-2019 Insertion, catheter, hemodialysis CATHETER,CVD PLNDRME 23CM FDA Start: 06-06-2019 Insertion, catheter, hemodialysis CATHETER, CVD PLNDRME 19CM FDA Start: 06-04-2019 Insertion, catheter, hemodialysis CATHETER,CVD PLNDRME 23CM FDA Start: 06-06-2019 Insertion, catheter, hemodialysis CATHETER, CVD PLNDRME 19CM FDA Start: 06-04-2019 Insertion, catheter, hemodialysis CATHETER,CVD PLNDRME 23CM FDA Start: 06-06-2019 Insertion, catheter, hemodialysis CATHETER, CVD PLNDRME 19CM FDA Start: 06-04-2019 Insertion, catheter, hemodialysis CATHETER,CVD PLNDRME 23CM FDA Start: 06-06-2019 Insertion, catheter, hemodialysis CATHETER, CVD PLNDRME 19CM FDA Start: 06-04-2019 Insertion, catheter, hemodialysis CATHETER,CVD PLNDRME 23CM FDA Start: 06-06-2019 Insertion, catheter, hemodialysis CATHETER, CVD PLNDRME 19CM FDA Start: 06-04-2019 Insertion, catheter, hemodialysis CATHETER,CVD PLNDRME 23CM FDA Start: 06-06-2019 Insertion, catheter, hemodialysis CATHETER, CVD PLNDRME 19CM FDA Start: 06-04-2019 Insertion, catheter, hemodialysis CATHETER,CVD PLNDRME 23CM FDA Start: 06-06-2019 Insertion, catheter, hemodialysis CATHETER, CVD PLNDRME 19CM FDA Start: 06-04-2019 Insertion, catheter, hemodialysis CATHETER,CVD PLNDRME 23CM FDA Start: 06-06-2019 Insertion, catheter, hemodialysis CATHETER, CVD PLNDRME 19CM FDA Start: 06-04-2019 Insertion, catheter, hemodialysis CATHETER, CVD PLNDRME 19CM FDA Start: 06-04-2019 Insertion, catheter, hemodialysis CATHETER,CVD PLNDRME 23CM FDA Start: 06-06-2019 Insertion, catheter, hemodialysis CATHETER, CVD PLNDRME 19CM FDA Start: 06-04-2019 Insertion, catheter, hemodialysis CATHETER,CVD PLNDRME 23CM FDA Start: 06-06-2019 Insertion, catheter, hemodialysis CATHETER, CVD PLNDRME 19CM FDA Start: 06-04-2019 Insertion, catheter, hemodialysis CATHETER,CVD PLNDRME 23CM FDA Start: 06-06-2019 Insertion, catheter, hemodialysis CATHETER, CVD PLNDRME 19CM FDA Start: 06-04-2019 Insertion, catheter, hemodialysis CATHETER,CVD PLNDRME 23CM FDA Start: 06-06-2019 Insertion, catheter, hemodialysis CATHETER, CVD PLNDRME 19CM FDA Start: 06-04-2019 Insertion, catheter, hemodialysis CATHETER,CVD PLNDRME 23CM FDA Start: 06-06-2019 Insertion, catheter, hemodialysis CATHETER, CVD PLNDRME 19CM FDA Start: 06-04-2019 Insertion, catheter, hemodialysis CATHETER,CVD PLNDRME 23CM FDA Start: 06-06-2019 Insertion, catheter, hemodialysis CATHETER, CVD PLNDRME 19CM FDA Start: 06-04-2019 Insertion, catheter, hemodialysis CATHETER,CVD PLNDRME 23CM FDA Start: 06-06-2019 Insertion, catheter, hemodialysis CATHETER, CVD PLNDRME 19CM FDA Start: 06-04-2019 Insertion, catheter, hemodialysis CATHETER,CVD PLNDRME 23CM FDA Start: 06-06-2019 Insertion, catheter, hemodialysis CATHETER, CVD PLNDRME 19CM FDA Start: 06-04-2019 Insertion, catheter, hemodialysis CATHETER,CVD PLNDRME 23CM FDA Start: 06-06-2019 Insertion, catheter, hemodialysis CATHETER, CVD PLNDRME 19CM FDA Start: 06-04-2019 Insertion, catheter, hemodialysis CATHETER,CVD PLNDRME 23CM FDA Start: 06-06-2019 Insertion, catheter, hemodialysis CATHETER, CVD PLNDRME 19CM FDA Start: 06-04-2019 Insertion, catheter, hemodialysis CATHETER,CVD PLNDRME 23CM FDA Start: 06-06-2019 Insertion, catheter, hemodialysis CATHETER, CVD PLNDRME 19CM FDA Start: 06-04-2019 Insertion, catheter, hemodialysis CATHETER,CVD PLNDRME 23CM FDA Start: 06-06-2019 Insertion, catheter, hemodialysis CATHETER, CVD PLNDRME 19CM FDA Start: 06-04-2019 Insertion, catheter, hemodialysis CATHETER,CVD PLNDRME 23CM FDA Start: 06-06-2019 Insertion, catheter, hemodialysis CATHETER, CVD PLNDRME 19CM FDA Start: 06-04-2019 Insertion, catheter, hemodialysis CATHETER,CVD PLNDRME 23CM FDA Start: 06-06-2019 Insertion, catheter, hemodialysis CATHETER, CVD PLNDRME 19CM FDA Start: 06-04-2019 Insertion, catheter, hemodialysis CATHETER,CVD PLNDRME 23CM FDA Start: 06-06-2019 Insertion, catheter, hemodialysis CATHETER, CVD PLNDRME 19CM FDA Start: 06-04-2019 Insertion, catheter, hemodialysis CATHETER,CVD PLNDRME 23CM FDA Start: 06-06-2019 Insertion, catheter, hemodialysis CATHETER, CVD PLNDRME 19CM FDA Start: 06-04-2019 Insertion, catheter, hemodialysis CATHETER,CVD PLNDRME 23CM FDA Start: 06-06-2019 Insertion, catheter, hemodialysis CATHETER, CVD PLNDRME 19CM FDA Start: 06-04-2019 Insertion, catheter, hemodialysis CATHETER,CVD PLNDRME 23CM FDA Start: 06-06-2019 Insertion, catheter, hemodialysis CATHETER, CVD PLNDRME 19CM FDA Start: 06-04-2019 Insertion, catheter, hemodialysis CATHETER,CVD PLNDRME 23CM FDA Start: 06-06-2019 Insertion, catheter, hemodialysis CATHETER, CVD PLNDRME 19CM FDA Start: 06-04-2019 Insertion, catheter, hemodialysis CATHETER,CVD PLNDRME 23CM FDA Start: 06-06-2019 Insertion, catheter, hemodialysis FDA Start: 06-04-2019 Insertion, catheter, hemodialysis FDA Start: 06-06-2019 Insertion, catheter, hemodialysis FDA Start: 06-04-2019 Insertion, catheter, hemodialysis FDA Start: 06-06-2019 Insertion, catheter, hemodialysis FDA Start: 06-04-2019 Insertion, catheter, hemodialysis FDA Start: 06-06-2019 Insertion, catheter, hemodialysis FDA Start: 06-04-2019 Insertion, catheter, hemodialysis FDA Start: 06-06-2019 Insertion, catheter, hemodialysis FDA Start: 06-04-2019 Insertion, catheter, hemodialysis FDA Start: 06-06-2019 Insertion, catheter, hemodialysis FDA Start: 06-04-2019 Insertion, catheter, hemodialysis FDA Start: 06-06-2019 Insertion, catheter, hemodialysis CATHETER, CVD PLNDRME 19CM FDA Start: 06-04-2019 Insertion, catheter, hemodialysis CATHETER,CVD PLNDRME 23CM FDA Start: 06-06-2019 Insertion, catheter, hemodialysis CATHETER, CVD PLNDRME 19CM FDA Start: 06-04-2019 Insertion, catheter, hemodialysis CATHETER,CVD PLNDRME 23CM FDA Start: 06-06-2019 Insertion, catheter, hemodialysis CATHETER, CVD PLNDRME 19CM FDA Start: 06-04-2019 Insertion, catheter, hemodialysis CATHETER,CVD PLNDRME 23CM FDA Start: 06-06-2019 Insertion, catheter, hemodialysis CATHETER, CVD PLNDRME 19CM FDA Start: 06-04-2019 Insertion, catheter, hemodialysis CATHETER,CVD PLNDRME 23CM FDA Start: 06-06-2019 Insertion, catheter, hemodialysis CATHETER, CVD PLNDRME 19CM FDA Start: 06-04-2019 Insertion, catheter, hemodialysis CATHETER,CVD PLNDRME 23CM FDA Start: 06-06-2019 Insertion, catheter, hemodialysis CATHETER, CVD PLNDRME 19CM FDA Start: 06-04-2019 Insertion, catheter, hemodialysis CATHETER,CVD PLNDRME 23CM FDA Start: 06-06-2019 Insertion, catheter, hemodialysis CATHETER, CVD PLNDRME 19CM FDA Start: 06-04-2019 Insertion, catheter, hemodialysis CATHETER,CVD PLNDRME 23CM FDA Start: 06-06-2019 Insertion, catheter, hemodialysis CATHETER, CVD PLNDRME 19CM FDA Start: 06-04-2019 Insertion, catheter, hemodialysis CATHETER,CVD PLNDRME 23CM FDA Start: 06-06-2019 Cystoscopy, with retrograde pyelogram and ureteral stent insertion STENT,URETERAL PIGTAIL 6FRx26 FDA Start: 07-06-2021 Cystoscopy, with retrograde pyelogram and ureteral stent insertion STENT,URETERAL PIGTAIL 6FRx26 FDA Start: 07-06-2021 Cystoscopy, with retrograde pyelogram and ureteral stent insertion STENT,URETERAL PIGTAIL 6FRx26 FDA Start: 07-06-2021 Cystoscopy, with retrograde pyelogram and ureteral stent insertion STENT,URETERAL PIGTAIL 6FRx26 FDA Start: 07-06-2021 Cystoscopy, with retrograde pyelogram and ureteral stent insertion STENT,URETERAL PIGTAIL 6FRx26 FDA Start: 07-06-2021 Cystoscopy, with retrograde pyelogram and ureteral stent insertion STENT,URETERAL PIGTAIL 6FRx26 FDA Start: 07-06-2021 Cystoscopy, with retrograde pyelogram and ureteral stent insertion STENT,URETERAL PIGTAIL 6FRx26 FDA Start: 07-06-2021 Cystoscopy, with retrograde pyelogram and ureteral stent insertion STENT,URETERAL PIGTAIL 6FRx26 FDA Start: 07-06-2021 Cystoscopy, with retrograde pyelogram and ureteral stent insertion STENT,URETERAL PIGTAIL 6FRx26 FDA Start: 07-06-2021 Cystoscopy, with retrograde pyelogram and ureteral stent insertion STENT,URETERAL PIGTAIL 6FRx26 FDA Start: 07-06-2021 Cystoscopy, with retrograde pyelogram and ureteral stent insertion STENT,URETERAL PIGTAIL 6FRx26 FDA Start: 07-06-2021 Cystoscopy, with retrograde pyelogram and ureteral stent insertion STENT,URETERAL PIGTAIL 6FRx26 FDA Start: 07-06-2021 Cystoscopy, with retrograde pyelogram and ureteral stent insertion STENT,URETERAL PIGTAIL 6FRx26 FDA Start: 07-06-2021 Cystoscopy, with retrograde pyelogram and ureteral stent insertion STENT,URETERAL PIGTAIL 6FRx26 FDA Start: 07-06-2021 Cystoscopy, with retrograde pyelogram and ureteral stent insertion STENT,URETERAL PIGTAIL 6FRx26 FDA Start: 07-06-2021 Cystoscopy, with retrograde pyelogram and ureteral stent insertion STENT,URETERAL PIGTAIL 6FRx26 FDA Start: 07-06-2021 Cystoscopy, with retrograde pyelogram and ureteral stent insertion STENT,URETERAL PIGTAIL 6FRx26 FDA Start: 07-06-2021 Cystoscopy, with retrograde pyelogram and ureteral stent insertion STENT,URETERAL PIGTAIL 6FRx26 FDA Start: 07-06-2021 Cystoscopy, with retrograde pyelogram and ureteral stent insertion STENT,URETERAL PIGTAIL 6FRx26 FDA Start: 07-06-2021 Cystoscopy, with retrograde pyelogram and ureteral stent insertion STENT,URETERAL PIGTAIL 6FRx26 FDA Start: 07-06-2021 Cystoscopy, with retrograde pyelogram and ureteral stent insertion STENT,URETERAL PIGTAIL 6FRx26 FDA Start: 07-06-2021 Cystoscopy, with retrograde pyelogram and ureteral stent insertion STENT,URETERAL PIGTAIL 6FRx26 FDA Start: 07-06-2021 Cystoscopy, with retrograde pyelogram and ureteral stent insertion STENT,URETERAL PIGTAIL 6FRx26 FDA Start: 07-06-2021 Cystoscopy, with retrograde pyelogram and ureteral stent insertion STENT,URETERAL PIGTAIL 6FRx26 FDA Start: 07-06-2021 Cystoscopy, with retrograde pyelogram and ureteral stent insertion STENT,URETERAL PIGTAIL 6FRx26 FDA Start: 07-06-2021 Cystoscopy, with retrograde pyelogram and ureteral stent insertion STENT,URETERAL PIGTAIL 6FRx26 FDA Start: 07-06-2021 Cystoscopy, with retrograde pyelogram and ureteral stent insertion STENT,URETERAL PIGTAIL 6FRx26 FDA Start: 07-06-2021 Cystoscopy, with retrograde pyelogram and ureteral stent insertion STENT,URETERAL PIGTAIL 6FRx26 FDA Start: 07-06-2021 Cystoscopy, with retrograde pyelogram and ureteral stent insertion STENT,URETERAL PIGTAIL 6FRx26 FDA Start: 07-06-2021 Cystoscopy, with retrograde pyelogram and ureteral stent insertion STENT,URETERAL PIGTAIL 6FRx26 FDA Start: 07-06-2021 Cystoscopy, with retrograde pyelogram and ureteral stent insertion STENT,URETERAL PIGTAIL 7FRx26 FDA Start: 08-06-2023 Cystoscopy, with retrograde pyelogram and ureteral stent insertion STENT,URETERAL PIGTAIL 7FRx26 FDA Start: 08-06-2023 Cystoscopy, with retrograde pyelogram and ureteral stent insertion STENT,URETERAL PIGTAIL 6FRx26 FDA Start: 07-06-2021 Cystoscopy, with retrograde pyelogram and ureteral stent insertion STENT,URETERAL PIGTAIL 7FRx26 FDA Start: 08-06-2023 Cystoscopy, with retrograde pyelogram and ureteral stent insertion STENT,URETERAL PIGTAIL 7FRx26 FDA Start: 08-06-2023 Cystoscopy, with retrograde pyelogram and ureteral stent insertion STENT,URETERAL PIGTAIL 6FRx26 FDA Start: 07-06-2021 Cystoscopy, with retrograde pyelogram and ureteral stent insertion STENT,URETERAL PIGTAIL 7FRx26 FDA Start: 08-06-2023 Cystoscopy, with retrograde pyelogram and ureteral stent insertion STENT,URETERAL PIGTAIL 7FRx26 FDA Start: 08-06-2023 Cystoscopy, with retrograde pyelogram and ureteral stent insertion STENT,URETERAL PIGTAIL 6FRx26 FDA Start: 07-06-2021 Cystoscopy, with retrograde pyelogram and ureteral stent insertion STENT,URETERAL PIGTAIL 7FRx26 FDA Start: 08-06-2023 Cystoscopy, with retrograde pyelogram and ureteral stent insertion STENT,URETERAL PIGTAIL 7FRx26 FDA Start: 08-06-2023 Cystoscopy, with retrograde pyelogram and ureteral stent insertion STENT,URETERAL PIGTAIL 6FRx26 FDA Start: 07-06-2021 Cystoscopy, with retrograde pyelogram and ureteral stent insertion STENT,URETERAL PIGTAIL 7FRx26 FDA Start: 08-06-2023 Cystoscopy, with retrograde pyelogram and ureteral stent insertion STENT,URETERAL PIGTAIL 7FRx26 FDA Start: 08-06-2023 Cystoscopy, with retrograde pyelogram and ureteral stent insertion FDA Start: 07-06-2021 Cystoscopy, with retrograde pyelogram and ureteral stent insertion FDA Start: 08-06-2023 Cystoscopy, with retrograde pyelogram and ureteral stent insertion FDA Start: 08-06-2023 Cystoscopy, with retrograde pyelogram and ureteral stent insertion FDA Start: 07-06-2021 Cystoscopy, with retrograde pyelogram and ureteral stent insertion FDA Start: 08-06-2023 Cystoscopy, with retrograde pyelogram and ureteral stent insertion FDA Start: 08-06-2023 Cystoscopy, with retrograde pyelogram and ureteral stent insertion FDA Start: 07-06-2021 Cystoscopy, with retrograde pyelogram and ureteral stent insertion FDA Start: 08-06-2023 Cystoscopy, with retrograde pyelogram and ureteral stent insertion FDA Start: 08-06-2023 Cystoscopy, with retrograde pyelogram and ureteral stent insertion FDA Start: 07-06-2021 Cystoscopy, with retrograde pyelogram and ureteral stent insertion FDA Start: 08-06-2023 Cystoscopy, with retrograde pyelogram and ureteral stent insertion FDA Start: 08-06-2023 Cystoscopy, with retrograde pyelogram and ureteral stent insertion FDA Start: 07-06-2021 Cystoscopy, with retrograde pyelogram and ureteral stent insertion FDA Start: 08-06-2023 Cystoscopy, with retrograde pyelogram and ureteral stent insertion FDA Start: 08-06-2023 Cystoscopy, with retrograde pyelogram and ureteral stent insertion FDA Start: 07-06-2021 Cystoscopy, with retrograde pyelogram and ureteral stent insertion FDA Start: 08-06-2023 Cystoscopy, with retrograde pyelogram and ureteral stent insertion FDA Start: 08-06-2023 Cystoscopy, with retrograde pyelogram and ureteral stent insertion STENT,URETERAL PIGTAIL 6FRx26 FDA Start: 07-06-2021 Cystoscopy, with retrograde pyelogram and ureteral stent insertion STENT,URETERAL PIGTAIL 7FRx26 FDA Start: 08-06-2023 Cystoscopy, with retrograde pyelogram and ureteral stent insertion STENT,URETERAL PIGTAIL 7FRx26 FDA Start: 08-06-2023 Cystoscopy, with retrograde pyelogram and ureteral stent insertion STENT,URETERAL PIGTAIL 6FRx26 FDA Start: 07-06-2021 Cystoscopy, with retrograde pyelogram and ureteral stent insertion STENT,URETERAL PIGTAIL 7FRx26 FDA Start: 08-06-2023 Cystoscopy, with retrograde pyelogram and ureteral stent insertion STENT,URETERAL PIGTAIL 7FRx26 FDA Start: 08-06-2023 Cystoscopy, with retrograde pyelogram and ureteral stent insertion STENT,URETERAL PIGTAIL 6FRx26 FDA Start: 07-06-2021 Cystoscopy, with retrograde pyelogram and ureteral stent insertion STENT,URETERAL PIGTAIL 7FRx26 FDA Start: 08-06-2023 Cystoscopy, with retrograde pyelogram and ureteral stent insertion STENT,URETERAL PIGTAIL 7FRx26 FDA Start: 08-06-2023 Cystoscopy, with retrograde pyelogram and ureteral stent insertion STENT,URETERAL PIGTAIL 6FRx26 FDA Start: 07-06-2021 Cystoscopy, with retrograde pyelogram and ureteral stent insertion STENT,URETERAL PIGTAIL 7FRx26 FDA Start: 08-06-2023 Cystoscopy, with retrograde pyelogram and ureteral stent insertion STENT,URETERAL PIGTAIL 7FRx26 FDA Start: 08-06-2023 Cystoscopy, with retrograde pyelogram and ureteral stent insertion STENT,URETERAL PIGTAIL 6FRx26 FDA Start: 07-06-2021 Cystoscopy, with retrograde pyelogram and ureteral stent insertion STENT,URETERAL PIGTAIL 7FRx26 FDA Start: 08-06-2023 Cystoscopy, with retrograde pyelogram and ureteral stent insertion STENT,URETERAL PIGTAIL 7FRx26 FDA Start: 08-06-2023 Cystoscopy, with retrograde pyelogram and ureteral stent insertion STENT,URETERAL PIGTAIL 6FRx26 FDA Start: 07-06-2021 Cystoscopy, with retrograde pyelogram and ureteral stent insertion STENT,URETERAL PIGTAIL 7FRx26 FDA Start: 08-06-2023 Cystoscopy, with retrograde pyelogram and ureteral stent insertion STENT,URETERAL PIGTAIL 7FRx26 FDA Start: 08-06-2023 Cystoscopy, with retrograde pyelogram and ureteral stent insertion STENT,URETERAL PIGTAIL 6FRx26 FDA Start: 07-06-2021 Cystoscopy, with retrograde pyelogram and ureteral stent insertion STENT,URETERAL PIGTAIL 7FRx26 FDA Start: 08-06-2023 Cystoscopy, with retrograde pyelogram and ureteral stent insertion STENT,URETERAL PIGTAIL 7FRx26 FDA Start: 08-06-2023 Cystoscopy, with retrograde pyelogram and ureteral stent insertion STENT,URETERAL PIGTAIL 6FRx26 FDA Start: 07-06-2021 Cystoscopy, with retrograde pyelogram and ureteral stent insertion STENT,URETERAL PIGTAIL 7FRx26 FDA Start: 08-06-2023 Cystoscopy, with retrograde pyelogram and ureteral stent insertion STENT,URETERAL PIGTAIL 7FRx26 FDA Start: 08-06-2023 Cystoscopic insertion of stent STENT, URETERAL 7X26 FDA Start: 04-23-2019 Cystoscopic insertion of stent STENT,7X24 ACMI FDA Start: 04-23-2019 Cystoscopic insertion of stent STENT,7X24 ACMI FDA Start: 08-01-2019 Cystoscopic insertion of stent STENT,URETERAL PIGTAIL 6FRx26 FDA Start: 02-23-2021 Cystoscopic insertion of stent STENT,URETERAL PIGTAIL 6FRx26 FDA Start: 02-23-2021 Cystoscopic insertion of stent STENT,URETERAL PIGTAIL 6FRx26 FDA Start: 12-30-2021 Cystoscopic insertion of stent STENT,URETERAL PIGTAIL 6FRx26 FDA Start: 12-30-2021 Cystoscopic insertion of stent STENT, URETERAL 7X26 FDA Start: 04-23-2019 Cystoscopic insertion of stent STENT,7X24 ACMI FDA Start: 04-23-2019 Cystoscopic insertion of stent STENT,7X24 ACMI FDA Start: 08-01-2019 Cystoscopic insertion of stent STENT,URETERAL PIGTAIL 6FRx26 FDA Start: 02-23-2021 Cystoscopic insertion of stent STENT,URETERAL PIGTAIL 6FRx26 FDA Start: 02-23-2021 Cystoscopic insertion of stent STENT,URETERAL PIGTAIL 6FRx26 FDA Start: 12-30-2021 Cystoscopic insertion of stent STENT,URETERAL PIGTAIL 6FRx26 FDA Start: 12-30-2021 Cystoscopic insertion of stent STENT, URETERAL 7X26 FDA Start: 04-23-2019 Cystoscopic insertion of stent STENT,7X24 ACMI FDA Start: 04-23-2019 Cystoscopic insertion of stent STENT,7X24 ACMI FDA Start: 08-01-2019 Cystoscopic insertion of stent STENT,URETERAL PIGTAIL 6FRx26 FDA Start: 02-23-2021 Cystoscopic insertion of stent STENT,URETERAL PIGTAIL 6FRx26 FDA Start: 02-23-2021 Cystoscopic insertion of stent STENT,URETERAL PIGTAIL 6FRx26 FDA Start: 12-30-2021 Cystoscopic insertion of stent STENT,URETERAL PIGTAIL 6FRx26 FDA Start: 12-30-2021 Cystoscopic insertion of stent STENT, URETERAL 7X26 FDA Start: 04-23-2019 Cystoscopic insertion of stent STENT,7X24 ACMI FDA Start: 04-23-2019 Cystoscopic insertion of stent STENT,7X24 ACMI FDA Start: 08-01-2019 Cystoscopic insertion of stent STENT,URETERAL PIGTAIL 6FRx26 FDA Start: 02-23-2021 Cystoscopic insertion of stent STENT,URETERAL PIGTAIL 6FRx26 FDA Start: 02-23-2021 Cystoscopic insertion of stent STENT,URETERAL PIGTAIL 6FRx26 FDA Start: 12-30-2021 Cystoscopic insertion of stent STENT,URETERAL PIGTAIL 6FRx26 FDA Start: 12-30-2021 Cystoscopic insertion of stent STENT, URETERAL 7X26 FDA Start: 04-23-2019 Cystoscopic insertion of stent STENT,7X24 ACMI FDA Start: 04-23-2019 Cystoscopic insertion of stent STENT,7X24 ACMI FDA Start: 08-01-2019 Cystoscopic insertion of stent STENT,URETERAL PIGTAIL 6FRx26 FDA Start: 02-23-2021 Cystoscopic insertion of stent STENT,URETERAL PIGTAIL 6FRx26 FDA Start: 02-23-2021 Cystoscopic insertion of stent STENT,URETERAL PIGTAIL 6FRx26 FDA Start: 12-30-2021 Cystoscopic insertion of stent STENT,URETERAL PIGTAIL 6FRx26 FDA Start: 12-30-2021 Cystoscopic insertion of stent STENT, URETERAL 7X26 FDA Start: 04-23-2019 Cystoscopic insertion of stent STENT,7X24 ACMI FDA Start: 04-23-2019 Cystoscopic insertion of stent STENT,7X24 ACMI FDA Start: 08-01-2019 Cystoscopic insertion of stent STENT,URETERAL PIGTAIL 6FRx26 FDA Start: 02-23-2021 Cystoscopic insertion of stent STENT,URETERAL PIGTAIL 6FRx26 FDA Start: 02-23-2021 Cystoscopic insertion of stent STENT,URETERAL PIGTAIL 6FRx26 FDA Start: 12-30-2021 Cystoscopic insertion of stent STENT,URETERAL PIGTAIL 6FRx26 FDA Start: 12-30-2021 Cystoscopic insertion of stent STENT, URETERAL 7X26 FDA Start: 04-23-2019 Cystoscopic insertion of stent STENT,7X24 ACMI FDA Start: 04-23-2019 Cystoscopic insertion of stent STENT,7X24 ACMI FDA Start: 08-01-2019 Cystoscopic insertion of stent STENT,URETERAL PIGTAIL 6FRx26 FDA Start: 02-23-2021 Cystoscopic insertion of stent STENT,URETERAL PIGTAIL 6FRx26 FDA Start: 02-23-2021 Cystoscopic insertion of stent STENT,URETERAL PIGTAIL 6FRx26 FDA Start: 12-30-2021 Cystoscopic insertion of stent STENT,URETERAL PIGTAIL 6FRx26 FDA Start: 12-30-2021 Cystoscopic insertion of stent ([id number]) [id number] FDA Start: 07-28-2022 Cystoscopic insertion of stent STENT, URETERAL 7X26 FDA Start: 04-23-2019 Cystoscopic insertion of stent STENT,7X24 ACMI FDA Start: 04-23-2019 Cystoscopic insertion of stent STENT,7X24 ACMI FDA Start: 08-01-2019 Cystoscopic insertion of stent STENT,URETERAL PIGTAIL 6FRx26 FDA Start: 02-23-2021 Cystoscopic insertion of stent STENT,URETERAL PIGTAIL 6FRx26 FDA Start: 02-23-2021 Cystoscopic insertion of stent STENT,URETERAL PIGTAIL 6FRx26 FDA Start: 12-30-2021 Cystoscopic insertion of stent STENT,URETERAL PIGTAIL 6FRx26 FDA Start: 12-30-2021 Cystoscopic insertion of stent STENT, URETERAL 7X26 FDA Start: 04-23-2019 Cystoscopic insertion of stent STENT,7X24 ACMI FDA Start: 04-23-2019 Cystoscopic insertion of stent STENT,7X24 ACMI FDA Start: 08-01-2019 Cystoscopic insertion of stent STENT,URETERAL PIGTAIL 6FRx26 FDA Start: 02-23-2021 Cystoscopic insertion of stent STENT,URETERAL PIGTAIL 6FRx26 FDA Start: 02-23-2021 Cystoscopic insertion of stent STENT,URETERAL PIGTAIL 6FRx26 FDA Start: 12-30-2021 Cystoscopic insertion of stent STENT,URETERAL PIGTAIL 6FRx26 FDA Start: 12-30-2021 Cystoscopic insertion of stent STENT, URETERAL 7X26 FDA Start: 04-23-2019 Cystoscopic insertion of stent STENT,7X24 ACMI FDA Start: 04-23-2019 Cystoscopic insertion of stent STENT,7X24 ACMI FDA Start: 08-01-2019 Cystoscopic insertion of stent STENT,URETERAL PIGTAIL 6FRx26 FDA Start: 02-23-2021 Cystoscopic insertion of stent STENT,URETERAL PIGTAIL 6FRx26 FDA Start: 02-23-2021 Cystoscopic insertion of stent STENT,URETERAL PIGTAIL 6FRx26 FDA Start: 12-30-2021 Cystoscopic insertion of stent STENT,URETERAL PIGTAIL 6FRx26 FDA Start: 12-30-2021 Cystoscopic insertion of stent STENT, URETERAL 7X26 FDA Start: 04-23-2019 Cystoscopic insertion of stent STENT,7X24 ACMI FDA Start: 04-23-2019 Cystoscopic insertion of stent STENT,7X24 ACMI FDA Start: 08-01-2019 Cystoscopic insertion of stent STENT,URETERAL PIGTAIL 6FRx26 FDA Start: 02-23-2021 Cystoscopic insertion of stent STENT,URETERAL PIGTAIL 6FRx26 FDA Start: 02-23-2021 Cystoscopic insertion of stent STENT,URETERAL PIGTAIL 6FRx26 FDA Start: 12-30-2021 Cystoscopic insertion of stent STENT,URETERAL PIGTAIL 6FRx26 FDA Start: 12-30-2021 Cystoscopic insertion of stent STENT, URETERAL 7X26 FDA Start: 04-23-2019 Cystoscopic insertion of stent STENT,7X24 ACMI FDA Start: 04-23-2019 Cystoscopic insertion of stent STENT,7X24 ACMI FDA Start: 08-01-2019 Cystoscopic insertion of stent STENT,URETERAL PIGTAIL 6FRx26 FDA Start: 02-23-2021 Cystoscopic insertion of stent STENT,URETERAL PIGTAIL 6FRx26 FDA Start: 02-23-2021 Cystoscopic insertion of stent STENT,URETERAL PIGTAIL 6FRx26 FDA Start: 12-30-2021 Cystoscopic insertion of stent STENT,URETERAL PIGTAIL 6FRx26 FDA Start: 12-30-2021 Cystoscopic insertion of stent STENT, URETERAL 7X26 FDA Start: 04-23-2019 Cystoscopic insertion of stent STENT,7X24 ACMI FDA Start: 04-23-2019 Cystoscopic insertion of stent STENT,7X24 ACMI FDA Start: 08-01-2019 Cystoscopic insertion of stent STENT,URETERAL PIGTAIL 6FRx26 FDA Start: 02-23-2021 Cystoscopic insertion of stent STENT,URETERAL PIGTAIL 6FRx26 FDA Start: 02-23-2021 Cystoscopic insertion of stent STENT,URETERAL PIGTAIL 6FRx26 FDA Start: 12-30-2021 Cystoscopic insertion of stent STENT,URETERAL PIGTAIL 6FRx26 FDA Start: 12-30-2021 Cystoscopic insertion of stent STENT, URETERAL 7X26 FDA Start: 04-23-2019 Cystoscopic insertion of stent STENT,7X24 ACMI FDA Start: 04-23-2019 Cystoscopic insertion of stent STENT,7X24 ACMI FDA Start: 08-01-2019 Cystoscopic insertion of stent STENT,URETERAL PIGTAIL 6FRx26 FDA Start: 02-23-2021 Cystoscopic insertion of stent STENT,URETERAL PIGTAIL 6FRx26 FDA Start: 02-23-2021 Cystoscopic insertion of stent STENT,URETERAL PIGTAIL 6FRx26 FDA Start: 12-30-2021 Cystoscopic insertion of stent STENT,URETERAL PIGTAIL 6FRx26 FDA Start: 12-30-2021 Cystoscopic insertion of stent STENT, URETERAL 7X26 FDA Start: 04-23-2019 Cystoscopic insertion of stent STENT,7X24 ACMI FDA Start: 04-23-2019 Cystoscopic insertion of stent STENT,7X24 ACMI FDA Start: 08-01-2019 Cystoscopic insertion of stent STENT,URETERAL PIGTAIL 6FRx26 FDA Start: 02-23-2021 Cystoscopic insertion of stent STENT,URETERAL PIGTAIL 6FRx26 FDA Start: 02-23-2021 Cystoscopic insertion of stent STENT,URETERAL PIGTAIL 6FRx26 FDA Start: 12-30-2021 Cystoscopic insertion of stent STENT,URETERAL PIGTAIL 6FRx26 FDA Start: 12-30-2021 Cystoscopic insertion of stent STENT,URETERAL PIGTAIL 6FRx26 FDA Start: 01-24-2023 Cystoscopic insertion of stent STENT,URETERAL PIGTAIL 6FRx26 FDA Start: 01-24-2023 Cystoscopic insertion of stent STENT, URETERAL 7X26 FDA Start: 04-23-2019 Cystoscopic insertion of stent STENT,7X24 ACMI FDA Start: 04-23-2019 Cystoscopic insertion of stent STENT,7X24 ACMI FDA Start: 08-01-2019 Cystoscopic insertion of stent STENT,URETERAL PIGTAIL 6FRx26 FDA Start: 02-23-2021 Cystoscopic insertion of stent STENT,URETERAL PIGTAIL 6FRx26 FDA Start: 02-23-2021 Cystoscopic insertion of stent STENT,URETERAL PIGTAIL 6FRx26 FDA Start: 12-30-2021 Cystoscopic insertion of stent STENT,URETERAL PIGTAIL 6FRx26 FDA Start: 12-30-2021 Cystoscopic insertion of stent STENT,URETERAL PIGTAIL 6FRx26 FDA Start: 01-24-2023 Cystoscopic insertion of stent STENT,URETERAL PIGTAIL 6FRx26 FDA Start: 01-24-2023 Cystoscopic insertion of stent STENT, URETERAL 7X26 FDA Start: 04-23-2019 Cystoscopic insertion of stent STENT,7X24 ACMI FDA Start: 04-23-2019 Cystoscopic insertion of stent STENT,7X24 ACMI FDA Start: 08-01-2019 Cystoscopic insertion of stent STENT,URETERAL PIGTAIL 6FRx26 FDA Start: 02-23-2021 Cystoscopic insertion of stent STENT,URETERAL PIGTAIL 6FRx26 FDA Start: 02-23-2021 Cystoscopic insertion of stent STENT,URETERAL PIGTAIL 6FRx26 FDA Start: 12-30-2021 Cystoscopic insertion of stent STENT,URETERAL PIGTAIL 6FRx26 FDA Start: 12-30-2021 Cystoscopic insertion of stent STENT,URETERAL PIGTAIL 6FRx26 FDA Start: 01-24-2023 Cystoscopic insertion of stent STENT,URETERAL PIGTAIL 6FRx26 FDA Start: 01-24-2023 Cystoscopic insertion of stent STENT, URETERAL 7X26 FDA Start: 04-23-2019 Cystoscopic insertion of stent STENT,7X24 ACMI FDA Start: 04-23-2019 Cystoscopic insertion of stent STENT,7X24 ACMI FDA Start: 08-01-2019 Cystoscopic insertion of stent STENT,URETERAL PIGTAIL 6FRx26 FDA Start: 02-23-2021 Cystoscopic insertion of stent STENT,URETERAL PIGTAIL 6FRx26 FDA Start: 02-23-2021 Cystoscopic insertion of stent STENT,URETERAL PIGTAIL 6FRx26 FDA Start: 12-30-2021 Cystoscopic insertion of stent STENT,URETERAL PIGTAIL 6FRx26 FDA Start: 12-30-2021 Cystoscopic insertion of stent STENT,URETERAL PIGTAIL 6FRx26 FDA Start: 01-24-2023 Cystoscopic insertion of stent STENT,URETERAL PIGTAIL 6FRx26 FDA Start: 01-24-2023 Cystoscopic insertion of stent STENT, URETERAL 7X26 FDA Start: 04-23-2019 Cystoscopic insertion of stent STENT,7X24 ACMI FDA Start: 04-23-2019 Cystoscopic insertion of stent STENT,7X24 ACMI FDA Start: 08-01-2019 Cystoscopic insertion of stent STENT,URETERAL PIGTAIL 6FRx26 FDA Start: 02-23-2021 Cystoscopic insertion of stent STENT,URETERAL PIGTAIL 6FRx26 FDA Start: 02-23-2021 Cystoscopic insertion of stent STENT,URETERAL PIGTAIL 6FRx26 FDA Start: 12-30-2021 Cystoscopic insertion of stent STENT,URETERAL PIGTAIL 6FRx26 FDA Start: 12-30-2021 Cystoscopic insertion of stent STENT,URETERAL PIGTAIL 6FRx26 FDA Start: 01-24-2023 Cystoscopic insertion of stent STENT,URETERAL PIGTAIL 6FRx26 FDA Start: 01-24-2023 Cystoscopic insertion of stent STENT, URETERAL 7X26 FDA Start: 04-23-2019 Cystoscopic insertion of stent STENT,7X24 ACMI FDA Start: 04-23-2019 Cystoscopic insertion of stent STENT,7X24 ACMI FDA Start: 08-01-2019 Cystoscopic insertion of stent STENT,URETERAL PIGTAIL 6FRx26 FDA Start: 02-23-2021 Cystoscopic insertion of stent STENT,URETERAL PIGTAIL 6FRx26 FDA Start: 02-23-2021 Cystoscopic insertion of stent STENT,URETERAL PIGTAIL 6FRx26 FDA Start: 12-30-2021 Cystoscopic insertion of stent STENT,URETERAL PIGTAIL 6FRx26 FDA Start: 12-30-2021 Cystoscopic insertion of stent STENT,URETERAL PIGTAIL 6FRx26 FDA Start: 01-24-2023 Cystoscopic insertion of stent STENT,URETERAL PIGTAIL 6FRx26 FDA Start: 01-24-2023 Cystoscopic insertion of stent STENT, URETERAL 7X26 FDA Start: 04-23-2019 Cystoscopic insertion of stent STENT,7X24 ACMI FDA Start: 04-23-2019 Cystoscopic insertion of stent STENT,7X24 ACMI FDA Start: 08-01-2019 Cystoscopic insertion of stent STENT,URETERAL PIGTAIL 6FRx26 FDA Start: 02-23-2021 Cystoscopic insertion of stent STENT,URETERAL PIGTAIL 6FRx26 FDA Start: 02-23-2021 Cystoscopic insertion of stent STENT,URETERAL PIGTAIL 6FRx26 FDA Start: 12-30-2021 Cystoscopic insertion of stent STENT,URETERAL PIGTAIL 6FRx26 FDA Start: 12-30-2021 Cystoscopic insertion of stent STENT,URETERAL PIGTAIL 6FRx26 FDA Start: 01-24-2023 Cystoscopic insertion of stent STENT,URETERAL PIGTAIL 6FRx26 FDA Start: 01-24-2023 Cystoscopic insertion of stent STENT, URETERAL 7X26 FDA Start: 04-23-2019 Cystoscopic insertion of stent STENT,7X24 ACMI FDA Start: 04-23-2019 Cystoscopic insertion of stent STENT,7X24 ACMI FDA Start: 08-01-2019 Cystoscopic insertion of stent STENT,URETERAL PIGTAIL 6FRx26 FDA Start: 02-23-2021 Cystoscopic insertion of stent STENT,URETERAL PIGTAIL 6FRx26 FDA Start: 02-23-2021 Cystoscopic insertion of stent STENT,URETERAL PIGTAIL 6FRx26 FDA Start: 12-30-2021 Cystoscopic insertion of stent STENT,URETERAL PIGTAIL 6FRx26 FDA Start: 12-30-2021 Cystoscopic insertion of stent STENT,URETERAL PIGTAIL 6FRx26 FDA Start: 01-24-2023 Cystoscopic insertion of stent STENT,URETERAL PIGTAIL 6FRx26 FDA Start: 01-24-2023 Cystoscopic insertion of stent STENT, URETERAL 7X26 FDA Start: 04-23-2019 Cystoscopic insertion of stent STENT,7X24 ACMI FDA Start: 04-23-2019 Cystoscopic insertion of stent STENT,7X24 ACMI FDA Start: 08-01-2019 Cystoscopic insertion of stent STENT,URETERAL PIGTAIL 6FRx26 FDA Start: 02-23-2021 Cystoscopic insertion of stent STENT,URETERAL PIGTAIL 6FRx26 FDA Start: 02-23-2021 Cystoscopic insertion of stent STENT,URETERAL PIGTAIL 6FRx26 FDA Start: 12-30-2021 Cystoscopic insertion of stent STENT,URETERAL PIGTAIL 6FRx26 FDA Start: 12-30-2021 Cystoscopic insertion of stent STENT,URETERAL PIGTAIL 6FRx26 FDA Start: 01-24-2023 Cystoscopic insertion of stent STENT,URETERAL PIGTAIL 6FRx26 FDA Start: 01-24-2023 Cystoscopic insertion of stent STENT, URETERAL 7X26 FDA Start: 04-23-2019 Cystoscopic insertion of stent STENT,7X24 ACMI FDA Start: 04-23-2019 Cystoscopic insertion of stent STENT,7X24 ACMI FDA Start: 08-01-2019 Cystoscopic insertion of stent STENT,URETERAL PIGTAIL 6FRx26 FDA Start: 02-23-2021 Cystoscopic insertion of stent STENT,URETERAL PIGTAIL 6FRx26 FDA Start: 02-23-2021 Cystoscopic insertion of stent STENT,URETERAL PIGTAIL 6FRx26 FDA Start: 12-30-2021 Cystoscopic insertion of stent STENT,URETERAL PIGTAIL 6FRx26 FDA Start: 12-30-2021 Cystoscopic insertion of stent STENT,URETERAL PIGTAIL 6FRx26 FDA Start: 03-08-2023 Cystoscopic insertion of stent STENT,URETERAL PIGTAIL 6FRx26 FDA Start: 01-24-2023 Cystoscopic insertion of stent STENT, URETERAL 7X26 FDA Start: 04-23-2019 Cystoscopic insertion of stent STENT,7X24 ACMI FDA Start: 04-23-2019 Cystoscopic insertion of stent STENT,7X24 ACMI FDA Start: 08-01-2019 Cystoscopic insertion of stent STENT,URETERAL PIGTAIL 6FRx26 FDA Start: 02-23-2021 Cystoscopic insertion of stent STENT,URETERAL PIGTAIL 6FRx26 FDA Start: 02-23-2021 Cystoscopic insertion of stent STENT,URETERAL PIGTAIL 6FRx26 FDA Start: 12-30-2021 Cystoscopic insertion of stent STENT,URETERAL PIGTAIL 6FRx26 FDA Start: 12-30-2021 Cystoscopic insertion of stent STENT,URETERAL PIGTAIL 6FRx26 FDA Start: 01-24-2023 Cystoscopic insertion of stent STENT,URETERAL PIGTAIL 6FRx26 FDA Start: 01-24-2023 Cystoscopic insertion of stent STENT, URETERAL 7X26 FDA Start: 04-23-2019 Cystoscopic insertion of stent STENT,7X24 ACMI FDA Start: 04-23-2019 Cystoscopic insertion of stent STENT,7X24 ACMI FDA Start: 08-01-2019 Cystoscopic insertion of stent STENT,URETERAL PIGTAIL 6FRx26 FDA Start: 02-23-2021 Cystoscopic insertion of stent STENT,URETERAL PIGTAIL 6FRx26 FDA Start: 02-23-2021 Cystoscopic insertion of stent STENT,URETERAL PIGTAIL 6FRx26 FDA Start: 12-30-2021 Cystoscopic insertion of stent STENT,URETERAL PIGTAIL 6FRx26 FDA Start: 12-30-2021 Cystoscopic insertion of stent STENT,URETERAL PIGTAIL 6FRx26 FDA Start: 01-24-2023 Cystoscopic insertion of stent STENT,URETERAL PIGTAIL 6FRx26 FDA Start: 01-24-2023 Cystoscopic insertion of stent STENT,URETERAL PIGTAIL 6FRx26 FDA Start: 06-08-2023 Cystoscopic insertion of stent STENT,URETERAL PIGTAIL 6FRx26 FDA Start: 06-08-2023 Cystoscopic insertion of stent STENT, URETERAL 7X26 FDA Start: 04-23-2019 Cystoscopic insertion of stent STENT,7X24 ACMI FDA Start: 04-23-2019 Cystoscopic insertion of stent STENT,7X24 ACMI FDA Start: 08-01-2019 Cystoscopic insertion of stent STENT,URETERAL PIGTAIL 6FRx26 FDA Start: 02-23-2021 Cystoscopic insertion of stent STENT,URETERAL PIGTAIL 6FRx26 FDA Start: 02-23-2021 Cystoscopic insertion of stent STENT,URETERAL PIGTAIL 6FRx26 FDA Start: 12-30-2021 Cystoscopic insertion of stent STENT,URETERAL PIGTAIL 6FRx26 FDA Start: 12-30-2021 Cystoscopic insertion of stent STENT,URETERAL PIGTAIL 6FRx26 FDA Start: 01-24-2023 Cystoscopic insertion of stent STENT,URETERAL PIGTAIL 6FRx26 FDA Start: 01-24-2023 Cystoscopic insertion of stent STENT,URETERAL PIGTAIL 6FRx26 FDA Start: 06-08-2023 Cystoscopic insertion of stent STENT,URETERAL PIGTAIL 6FRx26 FDA Start: 06-08-2023 Cystoscopic insertion of stent STENT, URETERAL 7X26 FDA Start: 04-23-2019 Cystoscopic insertion of stent STENT,7X24 ACMI FDA Start: 04-23-2019 Cystoscopic insertion of stent STENT,7X24 ACMI FDA Start: 08-01-2019 Cystoscopic insertion of stent STENT,URETERAL PIGTAIL 6FRx26 FDA Start: 02-23-2021 Cystoscopic insertion of stent STENT,URETERAL PIGTAIL 6FRx26 FDA Start: 02-23-2021 Cystoscopic insertion of stent STENT,URETERAL PIGTAIL 6FRx26 FDA Start: 12-30-2021 Cystoscopic insertion of stent STENT,URETERAL PIGTAIL 6FRx26 FDA Start: 12-30-2021 Cystoscopic insertion of stent STENT,URETERAL PIGTAIL 6FRx26 FDA Start: 01-24-2023 Cystoscopic insertion of stent STENT,URETERAL PIGTAIL 6FRx26 FDA Start: 01-24-2023 Cystoscopic insertion of stent STENT,URETERAL PIGTAIL 6FRx26 FDA Start: 06-08-2023 Cystoscopic insertion of stent STENT,URETERAL PIGTAIL 6FRx26 FDA Start: 06-08-2023 Cystoscopic insertion of stent STENT, URETERAL 7X26 FDA Start: 04-23-2019 Cystoscopic insertion of stent STENT,7X24 ACMI FDA Start: 04-23-2019 Cystoscopic insertion of stent STENT,7X24 ACMI FDA Start: 08-01-2019 Cystoscopic insertion of stent STENT,URETERAL PIGTAIL 6FRx26 FDA Start: 02-23-2021 Cystoscopic insertion of stent STENT,URETERAL PIGTAIL 6FRx26 FDA Start: 02-23-2021 Cystoscopic insertion of stent STENT,URETERAL PIGTAIL 6FRx26 FDA Start: 12-30-2021 Cystoscopic insertion of stent STENT,URETERAL PIGTAIL 6FRx26 FDA Start: 12-30-2021 Cystoscopic insertion of stent STENT,URETERAL PIGTAIL 6FRx26 FDA Start: 01-24-2023 Cystoscopic insertion of stent STENT,URETERAL PIGTAIL 6FRx26 FDA Start: 01-24-2023 Cystoscopic insertion of stent STENT,URETERAL PIGTAIL 6FRx26 FDA Start: 06-08-2023 Cystoscopic insertion of stent STENT,URETERAL PIGTAIL 6FRx26 FDA Start: 06-08-2023 Cystoscopic insertion of stent STENT, URETERAL 7X26 FDA Start: 04-23-2019 Cystoscopic insertion of stent STENT,7X24 ACMI FDA Start: 04-23-2019 Cystoscopic insertion of stent STENT,7X24 ACMI FDA Start: 08-01-2019 Cystoscopic insertion of stent STENT,URETERAL PIGTAIL 6FRx26 FDA Start: 02-23-2021 Cystoscopic insertion of stent STENT,URETERAL PIGTAIL 6FRx26 FDA Start: 02-23-2021 Cystoscopic insertion of stent STENT,URETERAL PIGTAIL 6FRx26 FDA Start: 12-30-2021 Cystoscopic insertion of stent STENT,URETERAL PIGTAIL 6FRx26 FDA Start: 12-30-2021 Cystoscopic insertion of stent STENT,URETERAL PIGTAIL 6FRx26 FDA Start: 01-24-2023 Cystoscopic insertion of stent STENT,URETERAL PIGTAIL 6FRx26 FDA Start: 01-24-2023 Cystoscopic insertion of stent STENT,URETERAL PIGTAIL 6FRx26 FDA Start: 06-08-2023 Cystoscopic insertion of stent STENT,URETERAL PIGTAIL 6FRx26 FDA Start: 06-08-2023 Cystoscopic insertion of stent STENT, URETERAL 7X26 FDA Start: 04-23-2019 Cystoscopic insertion of stent STENT,7X24 ACMI FDA Start: 04-23-2019 Cystoscopic insertion of stent STENT,7X24 ACMI FDA Start: 08-01-2019 Cystoscopic insertion of stent STENT,URETERAL PIGTAIL 6FRx26 FDA Start: 02-23-2021 Cystoscopic insertion of stent STENT,URETERAL PIGTAIL 6FRx26 FDA Start: 02-23-2021 Cystoscopic insertion of stent STENT,URETERAL PIGTAIL 6FRx26 FDA Start: 12-30-2021 Cystoscopic insertion of stent STENT,URETERAL PIGTAIL 6FRx26 FDA Start: 12-30-2021 Cystoscopic insertion of stent STENT,URETERAL PIGTAIL 6FRx26 FDA Start: 01-24-2023 Cystoscopic insertion of stent STENT,URETERAL PIGTAIL 6FRx26 FDA Start: 01-24-2023 Cystoscopic insertion of stent STENT,URETERAL PIGTAIL 6FRx26 FDA Start: 06-08-2023 Cystoscopic insertion of stent STENT,URETERAL PIGTAIL 6FRx26 FDA Start: 06-08-2023 Cystoscopic insertion of stent STENT, URETERAL 7X26 FDA Start: 04-23-2019 Cystoscopic insertion of stent STENT,7X24 ACMI FDA Start: 04-23-2019 Cystoscopic insertion of stent STENT,7X24 ACMI FDA Start: 08-01-2019 Cystoscopic insertion of stent STENT,URETERAL PIGTAIL 6FRx26 FDA Start: 02-23-2021 Cystoscopic insertion of stent STENT,URETERAL PIGTAIL 6FRx26 FDA Start: 02-23-2021 Cystoscopic insertion of stent STENT,URETERAL PIGTAIL 6FRx26 FDA Start: 12-30-2021 Cystoscopic insertion of stent STENT,URETERAL PIGTAIL 6FRx26 FDA Start: 12-30-2021 Cystoscopic insertion of stent STENT,URETERAL PIGTAIL 6FRx26 FDA Start: 01-24-2023 Cystoscopic insertion of stent STENT,URETERAL PIGTAIL 6FRx26 FDA Start: 01-24-2023 Cystoscopic insertion of stent STENT,URETERAL PIGTAIL 6FRx26 FDA Start: 06-08-2023 Cystoscopic insertion of stent STENT,URETERAL PIGTAIL 6FRx26 FDA Start: 06-08-2023 Cystoscopic insertion of stent STENT, URETERAL 7X26 FDA Start: 04-23-2019 Cystoscopic insertion of stent STENT,7X24 ACMI FDA Start: 04-23-2019 Cystoscopic insertion of stent STENT,7X24 ACMI FDA Start: 08-01-2019 Cystoscopic insertion of stent STENT,URETERAL PIGTAIL 6FRx26 FDA Start: 02-23-2021 Cystoscopic insertion of stent STENT,URETERAL PIGTAIL 6FRx26 FDA Start: 02-23-2021 Cystoscopic insertion of stent STENT,URETERAL PIGTAIL 6FRx26 FDA Start: 12-30-2021 Cystoscopic insertion of stent STENT,URETERAL PIGTAIL 6FRx26 FDA Start: 12-30-2021 Cystoscopic insertion of stent STENT,URETERAL PIGTAIL 6FRx26 FDA Start: 01-24-2023 Cystoscopic insertion of stent STENT,URETERAL PIGTAIL 6FRx26 FDA Start: 01-24-2023 Cystoscopic insertion of stent STENT,URETERAL PIGTAIL 6FRx26 FDA Start: 06-08-2023 Cystoscopic insertion of stent STENT,URETERAL PIGTAIL 6FRx26 FDA Start: 06-08-2023 Cystoscopic insertion of stent STENT, URETERAL 7X26 FDA Start: 04-23-2019 Cystoscopic insertion of stent STENT,7X24 ACMI FDA Start: 04-23-2019 Cystoscopic insertion of stent STENT,7X24 ACMI FDA Start: 08-01-2019 Cystoscopic insertion of stent STENT,URETERAL PIGTAIL 6FRx26 FDA Start: 02-23-2021 Cystoscopic insertion of stent STENT,URETERAL PIGTAIL 6FRx26 FDA Start: 02-23-2021 Cystoscopic insertion of stent STENT,URETERAL PIGTAIL 6FRx26 FDA Start: 12-30-2021 Cystoscopic insertion of stent STENT,URETERAL PIGTAIL 6FRx26 FDA Start: 12-30-2021 Cystoscopic insertion of stent STENT,URETERAL PIGTAIL 6FRx26 FDA Start: 01-24-2023 Cystoscopic insertion of stent STENT,URETERAL PIGTAIL 6FRx26 FDA Start: 01-24-2023 Cystoscopic insertion of stent FDA Start: 06-08-2023 Cystoscopic insertion of stent FDA Start: 06-08-2023 Cystoscopic insertion of stent FDA Start: 04-23-2019 Cystoscopic insertion of stent FDA Start: 04-23-2019 Cystoscopic insertion of stent FDA Start: 08-01-2019 Cystoscopic insertion of stent FDA Start: 02-23-2021 Cystoscopic insertion of stent FDA Start: 02-23-2021 Cystoscopic insertion of stent FDA Start: 12-30-2021 Cystoscopic insertion of stent FDA Start: 12-30-2021 Cystoscopic insertion of stent FDA Start: 01-24-2023 Cystoscopic insertion of stent FDA Start: 01-24-2023 Cystoscopic insertion of stent FDA Start: 06-08-2023 Cystoscopic insertion of stent FDA Start: 06-08-2023 Cystoscopic insertion of stent FDA Start: 04-23-2019 Cystoscopic insertion of stent FDA Start: 04-23-2019 Cystoscopic insertion of stent FDA Start: 08-01-2019 Cystoscopic insertion of stent FDA Start: 02-23-2021 Cystoscopic insertion of stent FDA Start: 02-23-2021 Cystoscopic insertion of stent FDA Start: 12-30-2021 Cystoscopic insertion of stent FDA Start: 12-30-2021 Cystoscopic insertion of stent FDA Start: 01-24-2023 Cystoscopic insertion of stent FDA Start: 01-24-2023 Cystoscopic insertion of stent FDA Start: 06-08-2023 Cystoscopic insertion of stent FDA Start: 06-08-2023 Cystoscopic insertion of stent FDA Start: 04-23-2019 Cystoscopic insertion of stent FDA Start: 04-23-2019 Cystoscopic insertion of stent FDA Start: 08-01-2019 Cystoscopic insertion of stent FDA Start: 02-23-2021 Cystoscopic insertion of stent FDA Start: 02-23-2021 Cystoscopic insertion of stent FDA Start: 12-30-2021 Cystoscopic insertion of stent FDA Start: 12-30-2021 Cystoscopic insertion of stent FDA Start: 01-24-2023 Cystoscopic insertion of stent FDA Start: 01-24-2023 Cystoscopic insertion of stent FDA Start: 06-08-2023 Cystoscopic insertion of stent FDA Start: 06-08-2023 Cystoscopic insertion of stent FDA Start: 04-23-2019 Cystoscopic insertion of stent FDA Start: 04-23-2019 Cystoscopic insertion of stent FDA Start: 08-01-2019 Cystoscopic insertion of stent FDA Start: 02-23-2021 Cystoscopic insertion of stent FDA Start: 02-23-2021 Cystoscopic insertion of stent FDA Start: 12-30-2021 Cystoscopic insertion of stent FDA Start: 12-30-2021 Cystoscopic insertion of stent FDA Start: 01-24-2023 Cystoscopic insertion of stent FDA Start: 01-24-2023 Cystoscopic insertion of stent FDA Start: 06-08-2023 Cystoscopic insertion of stent FDA Start: 06-08-2023 Cystoscopic insertion of stent FDA Start: 04-23-2019 Cystoscopic insertion of stent FDA Start: 04-23-2019 Cystoscopic insertion of stent FDA Start: 08-01-2019 Cystoscopic insertion of stent FDA Start: 02-23-2021 Cystoscopic insertion of stent FDA Start: 02-23-2021 Cystoscopic insertion of stent FDA Start: 12-30-2021 Cystoscopic insertion of stent FDA Start: 12-30-2021 Cystoscopic insertion of stent FDA Start: 01-24-2023 Cystoscopic insertion of stent FDA Start: 01-24-2023 Cystoscopic insertion of stent FDA Start: 06-08-2023 Cystoscopic insertion of stent FDA Start: 06-08-2023 Cystoscopic insertion of stent FDA Start: 04-23-2019 Cystoscopic insertion of stent FDA Start: 04-23-2019 Cystoscopic insertion of stent FDA Start: 08-01-2019 Cystoscopic insertion of stent FDA Start: 02-23-2021 Cystoscopic insertion of stent FDA Start: 02-23-2021 Cystoscopic insertion of stent FDA Start: 12-30-2021 Cystoscopic insertion of stent FDA Start: 12-30-2021 Cystoscopic insertion of stent FDA Start: 01-24-2023 Cystoscopic insertion of stent FDA Start: 01-24-2023 Cystoscopic insertion of stent STENT,URETERAL PIGTAIL 6FRx26 FDA Start: 06-08-2023 Cystoscopic insertion of stent STENT,URETERAL PIGTAIL 6FRx26 FDA Start: 06-08-2023 Cystoscopic insertion of stent STENT, URETERAL 7X26 FDA Start: 04-23-2019 Cystoscopic insertion of stent STENT,7X24 ACMI FDA Start: 04-23-2019 Cystoscopic insertion of stent STENT,7X24 ACMI FDA Start: 08-01-2019 Cystoscopic insertion of stent STENT,URETERAL PIGTAIL 6FRx26 FDA Start: 02-23-2021 Cystoscopic insertion of stent STENT,URETERAL PIGTAIL 6FRx26 FDA Start: 02-23-2021 Cystoscopic insertion of stent STENT,URETERAL PIGTAIL 6FRx26 FDA Start: 12-30-2021 Cystoscopic insertion of stent STENT,URETERAL PIGTAIL 6FRx26 FDA Start: 12-30-2021 Cystoscopic insertion of stent STENT,URETERAL PIGTAIL 6FRx26 FDA Start: 01-24-2023 Cystoscopic insertion of stent STENT,URETERAL PIGTAIL 6FRx26 FDA Start: 01-24-2023 Cystoscopic insertion of stent STENT,URETERAL PIGTAIL 6FRx26 FDA Start: 06-08-2023 Cystoscopic insertion of stent STENT,URETERAL PIGTAIL 6FRx26 FDA Start: 06-08-2023 Cystoscopic insertion of stent STENT, URETERAL 7X26 FDA Start: 04-23-2019 Cystoscopic insertion of stent STENT,7X24 ACMI FDA Start: 04-23-2019 Cystoscopic insertion of stent STENT,7X24 ACMI FDA Start: 08-01-2019 Cystoscopic insertion of stent STENT,URETERAL PIGTAIL 6FRx26 FDA Start: 02-23-2021 Cystoscopic insertion of stent STENT,URETERAL PIGTAIL 6FRx26 FDA Start: 02-23-2021 Cystoscopic insertion of stent STENT,URETERAL PIGTAIL 6FRx26 FDA Start: 12-30-2021 Cystoscopic insertion of stent STENT,URETERAL PIGTAIL 6FRx26 FDA Start: 12-30-2021 Cystoscopic insertion of stent STENT,URETERAL PIGTAIL 6FRx26 FDA Start: 01-24-2023 Cystoscopic insertion of stent STENT,URETERAL PIGTAIL 6FRx26 FDA Start: 01-24-2023 Cystoscopic insertion of stent STENT,URETERAL PIGTAIL 6FRx26 FDA Start: 06-08-2023 Cystoscopic insertion of stent STENT,URETERAL PIGTAIL 6FRx26 FDA Start: 06-08-2023 Cystoscopic insertion of stent STENT, URETERAL 7X26 FDA Start: 04-23-2019 Cystoscopic insertion of stent STENT,7X24 ACMI FDA Start: 04-23-2019 Cystoscopic insertion of stent STENT,7X24 ACMI FDA Start: 08-01-2019 Cystoscopic insertion of stent STENT,URETERAL PIGTAIL 6FRx26 FDA Start: 02-23-2021 Cystoscopic insertion of stent STENT,URETERAL PIGTAIL 6FRx26 FDA Start: 02-23-2021 Cystoscopic insertion of stent STENT,URETERAL PIGTAIL 6FRx26 FDA Start: 12-30-2021 Cystoscopic insertion of stent STENT,URETERAL PIGTAIL 6FRx26 FDA Start: 12-30-2021 Cystoscopic insertion of stent STENT,URETERAL PIGTAIL 6FRx26 FDA Start: 01-24-2023 Cystoscopic insertion of stent STENT,URETERAL PIGTAIL 6FRx26 FDA Start: 01-24-2023 Cystoscopic insertion of stent STENT,URETERAL PIGTAIL 6FRx26 FDA Start: 06-08-2023 Cystoscopic insertion of stent STENT,URETERAL PIGTAIL 6FRx26 FDA Start: 06-08-2023 Cystoscopic insertion of stent STENT, URETERAL 7X26 FDA Start: 04-23-2019 Cystoscopic insertion of stent STENT,7X24 ACMI FDA Start: 04-23-2019 Cystoscopic insertion of stent STENT,7X24 ACMI FDA Start: 08-01-2019 Cystoscopic insertion of stent STENT,URETERAL PIGTAIL 6FRx26 FDA Start: 02-23-2021 Cystoscopic insertion of stent STENT,URETERAL PIGTAIL 6FRx26 FDA Start: 02-23-2021 Cystoscopic insertion of stent STENT,URETERAL PIGTAIL 6FRx26 FDA Start: 12-30-2021 Cystoscopic insertion of stent STENT,URETERAL PIGTAIL 6FRx26 FDA Start: 12-30-2021 Cystoscopic insertion of stent STENT,URETERAL PIGTAIL 6FRx26 FDA Start: 01-24-2023 Cystoscopic insertion of stent STENT,URETERAL PIGTAIL 6FRx26 FDA Start: 01-24-2023 Cystoscopic insertion of stent STENT,URETERAL PIGTAIL 6FRx26 FDA Start: 06-08-2023 Cystoscopic insertion of stent STENT,URETERAL PIGTAIL 6FRx26 FDA Start: 06-08-2023 Cystoscopic insertion of stent STENT, URETERAL 7X26 FDA Start: 04-23-2019 Cystoscopic insertion of stent STENT,7X24 ACMI FDA Start: 04-23-2019 Cystoscopic insertion of stent STENT,7X24 ACMI FDA Start: 08-01-2019 Cystoscopic insertion of stent STENT,URETERAL PIGTAIL 6FRx26 FDA Start: 02-23-2021 Cystoscopic insertion of stent STENT,URETERAL PIGTAIL 6FRx26 FDA Start: 02-23-2021 Cystoscopic insertion of stent STENT,URETERAL PIGTAIL 6FRx26 FDA Start: 12-30-2021 Cystoscopic insertion of stent STENT,URETERAL PIGTAIL 6FRx26 FDA Start: 12-30-2021 Cystoscopic insertion of stent STENT,URETERAL PIGTAIL 6FRx26 FDA Start: 01-24-2023 Cystoscopic insertion of stent STENT,URETERAL PIGTAIL 6FRx26 FDA Start: 01-24-2023 Cystoscopic insertion of stent STENT,URETERAL PIGTAIL 6FRx26 FDA Start: 06-08-2023 Cystoscopic insertion of stent STENT,URETERAL PIGTAIL 6FRx26 FDA Start: 06-08-2023 Cystoscopic insertion of stent STENT, URETERAL 7X26 FDA Start: 04-23-2019 Cystoscopic insertion of stent STENT,7X24 ACMI FDA Start: 04-23-2019 Cystoscopic insertion of stent STENT,7X24 ACMI FDA Start: 08-01-2019 Cystoscopic insertion of stent STENT,URETERAL PIGTAIL 6FRx26 FDA Start: 02-23-2021 Cystoscopic insertion of stent STENT,URETERAL PIGTAIL 6FRx26 FDA Start: 02-23-2021 Cystoscopic insertion of stent STENT,URETERAL PIGTAIL 6FRx26 FDA Start: 12-30-2021 Cystoscopic insertion of stent STENT,URETERAL PIGTAIL 6FRx26 FDA Start: 12-30-2021 Cystoscopic insertion of stent STENT,URETERAL PIGTAIL 6FRx26 FDA Start: 01-24-2023 Cystoscopic insertion of stent STENT,URETERAL PIGTAIL 6FRx26 FDA Start: 01-24-2023 Cystoscopic insertion of stent STENT,URETERAL PIGTAIL 6FRx26 FDA Start: 06-08-2023 Cystoscopic insertion of stent STENT,URETERAL PIGTAIL 6FRx26 FDA Start: 06-08-2023 Cystoscopic insertion of stent STENT, URETERAL 7X26 FDA Start: 04-23-2019 Cystoscopic insertion of stent STENT,7X24 ACMI FDA Start: 04-23-2019 Cystoscopic insertion of stent STENT,7X24 ACMI FDA Start: 08-01-2019 Cystoscopic insertion of stent STENT,URETERAL PIGTAIL 6FRx26 FDA Start: 02-23-2021 Cystoscopic insertion of stent STENT,URETERAL PIGTAIL 6FRx26 FDA Start: 02-23-2021 Cystoscopic insertion of stent STENT,URETERAL PIGTAIL 6FRx26 FDA Start: 12-30-2021 Cystoscopic insertion of stent STENT,URETERAL PIGTAIL 6FRx26 FDA Start: 12-30-2021 Cystoscopic insertion of stent STENT,URETERAL PIGTAIL 6FRx26 FDA Start: 01-24-2023 Cystoscopic insertion of stent STENT,URETERAL PIGTAIL 6FRx26 FDA Start: 01-24-2023 Cystoscopic insertion of stent STENT,URETERAL PIGTAIL 6FRx26 FDA Start: 06-08-2023 Cystoscopic insertion of stent STENT,URETERAL PIGTAIL 6FRx26 FDA Start: 06-08-2023 Cystoscopic insertion of stent STENT, URETERAL 7X26 FDA Start: 04-23-2019 Cystoscopic insertion of stent STENT,7X24 ACMI FDA Start: 04-23-2019 Cystoscopic insertion of stent STENT,7X24 ACMI FDA Start: 08-01-2019 Cystoscopic insertion of stent STENT,URETERAL PIGTAIL 6FRx26 FDA Start: 02-23-2021 Cystoscopic insertion of stent STENT,URETERAL PIGTAIL 6FRx26 FDA Start: 02-23-2021 Cystoscopic insertion of stent STENT,URETERAL PIGTAIL 6FRx26 FDA Start: 12-30-2021 Cystoscopic insertion of stent STENT,URETERAL PIGTAIL 6FRx26 FDA Start: 12-30-2021 Cystoscopic insertion of stent STENT,URETERAL PIGTAIL 6FRx26 FDA Start: 01-24-2023 Cystoscopic insertion of stent STENT,URETERAL PIGTAIL 6FRx26 FDA Start: 01-24-2023 Creation, AV fistula SUTURE,LIGA CLIP MED LT200 FDA Start: 09-21-2021 Creation, AV fistula SUTURE,LIGA CLIP MED LT200 FDA Start: 09-21-2021 Creation, AV fistula SUTURE,LIGA CLIP SM LT-100 FDA Start: 09-21-2021 Creation, AV fistula SUTURE,LIGA CLIP SM LT-100 FDA Start: 09-21-2021 Creation, AV fistula SUTURE,LIGA CLIP SM LT-100 FDA Start: 09-21-2021 Creation, AV fistula SUTURE,LIGA CLIP MED LT200 FDA Start: 11-29-2021 Creation, AV fistula SUTURE,LIGA CLIP MED LT200 FDA Start: 11-29-2021 Creation, AV fistula SUTURE,LIGA CLIP MED LT200 FDA Start: 11-29-2021 Creation, AV fistula SUTURE,LIGA CLIP SM LT-100 FDA Start: 11-29-2021 Creation, AV fistula SUTURE,LIGA CLIP SM LT-100 FDA Start: 11-29-2021 Creation, AV fistula SUTURE,LIGA CLIP SM LT-100 FDA Start: 11-29-2021 Creation, AV fistula SUTURE,LIGA CLIP SM LT-100 FDA Start: 11-29-2021 Creation, AV fistula SUTURE,LIGA CLIP SM LT-100 FDA Start: 11-29-2021 Creation, AV fistula SUTURE,LIGA CLIP MED LT200 FDA Start: 09-21-2021 Creation, AV fistula SUTURE,LIGA CLIP MED LT200 FDA Start: 09-21-2021 Creation, AV fistula SUTURE,LIGA CLIP SM LT-100 FDA Start: 09-21-2021 Creation, AV fistula SUTURE,LIGA CLIP SM LT-100 FDA Start: 09-21-2021 Creation, AV fistula SUTURE,LIGA CLIP SM LT-100 FDA Start: 09-21-2021 Creation, AV fistula SUTURE,LIGA CLIP MED LT200 FDA Start: 11-29-2021 Creation, AV fistula SUTURE,LIGA CLIP MED LT200 FDA Start: 11-29-2021 Creation, AV fistula SUTURE,LIGA CLIP MED LT200 FDA Start: 11-29-2021 Creation, AV fistula SUTURE,LIGA CLIP SM LT-100 FDA Start: 11-29-2021 Creation, AV fistula SUTURE,LIGA CLIP SM LT-100 FDA Start: 11-29-2021 Creation, AV fistula SUTURE,LIGA CLIP SM LT-100 FDA Start: 11-29-2021 Creation, AV fistula SUTURE,LIGA CLIP SM LT-100 FDA Start: 11-29-2021 Creation, AV fistula SUTURE,LIGA CLIP SM LT-100 FDA Start: 11-29-2021 Creation, AV fistula SUTURE,LIGA CLIP MED LT200 FDA Start: 09-21-2021 Creation, AV fistula SUTURE,LIGA CLIP MED LT200 FDA Start: 09-21-2021 Creation, AV fistula SUTURE,LIGA CLIP SM LT-100 FDA Start: 09-21-2021 Creation, AV fistula SUTURE,LIGA CLIP SM LT-100 FDA Start: 09-21-2021 Creation, AV fistula SUTURE,LIGA CLIP SM LT-100 FDA Start: 09-21-2021 Creation, AV fistula SUTURE,LIGA CLIP MED LT200 FDA Start: 11-29-2021 Creation, AV fistula SUTURE,LIGA CLIP MED LT200 FDA Start: 11-29-2021 Creation, AV fistula SUTURE,LIGA CLIP MED LT200 FDA Start: 11-29-2021 Creation, AV fistula SUTURE,LIGA CLIP SM LT-100 FDA Start: 11-29-2021 Creation, AV fistula SUTURE,LIGA CLIP SM LT-100 FDA Start: 11-29-2021 Creation, AV fistula SUTURE,LIGA CLIP SM LT-100 FDA Start: 11-29-2021 Creation, AV fistula SUTURE,LIGA CLIP SM LT-100 FDA Start: 11-29-2021 Creation, AV fistula SUTURE,LIGA CLIP SM LT-100 FDA Start: 11-29-2021 Creation, AV fistula SUTURE,LIGA CLIP MED LT200 FDA Start: 09-21-2021 Creation, AV fistula SUTURE,LIGA CLIP MED LT200 FDA Start: 09-21-2021 Creation, AV fistula SUTURE,LIGA CLIP SM LT-100 FDA Start: 09-21-2021 Creation, AV fistula SUTURE,LIGA CLIP SM LT-100 FDA Start: 09-21-2021 Creation, AV fistula SUTURE,LIGA CLIP SM LT-100 FDA Start: 09-21-2021 Creation, AV fistula SUTURE,LIGA CLIP MED LT200 FDA Start: 11-29-2021 Creation, AV fistula SUTURE,LIGA CLIP MED LT200 FDA Start: 11-29-2021 Creation, AV fistula SUTURE,LIGA CLIP MED LT200 FDA Start: 11-29-2021 Creation, AV fistula SUTURE,LIGA CLIP SM LT-100 FDA Start: 11-29-2021 Creation, AV fistula SUTURE,LIGA CLIP SM LT-100 FDA Start: 11-29-2021 Creation, AV fistula SUTURE,LIGA CLIP SM LT-100 FDA Start: 11-29-2021 Creation, AV fistula SUTURE,LIGA CLIP SM LT-100 FDA Start: 11-29-2021 Creation, AV fistula SUTURE,LIGA CLIP SM LT-100 FDA Start: 11-29-2021 Creation, AV fistula SUTURE,LIGA CLIP MED LT200 FDA Start: 09-21-2021 Creation, AV fistula SUTURE,LIGA CLIP MED LT200 FDA Start: 09-21-2021 Creation, AV fistula SUTURE,LIGA CLIP SM LT-100 FDA Start: 09-21-2021 Creation, AV fistula SUTURE,LIGA CLIP SM LT-100 FDA Start: 09-21-2021 Creation, AV fistula SUTURE,LIGA CLIP SM LT-100 FDA Start: 09-21-2021 Creation, AV fistula SUTURE,LIGA CLIP MED LT200 FDA Start: 11-29-2021 Creation, AV fistula SUTURE,LIGA CLIP MED LT200 FDA Start: 11-29-2021 Creation, AV fistula SUTURE,LIGA CLIP MED LT200 FDA Start: 11-29-2021 Creation, AV fistula SUTURE,LIGA CLIP SM LT-100 FDA Start: 11-29-2021 Creation, AV fistula SUTURE,LIGA CLIP SM LT-100 FDA Start: 11-29-2021 Creation, AV fistula SUTURE,LIGA CLIP SM LT-100 FDA Start: 11-29-2021 Creation, AV fistula SUTURE,LIGA CLIP SM LT-100 FDA Start: 11-29-2021 Creation, AV fistula SUTURE,LIGA CLIP SM LT-100 FDA Start: 11-29-2021 Creation, AV fistula SUTURE,LIGA CLIP MED LT200 FDA Start: 09-21-2021 Creation, AV fistula SUTURE,LIGA CLIP MED LT200 FDA Start: 09-21-2021 Creation, AV fistula SUTURE,LIGA CLIP SM LT-100 FDA Start: 09-21-2021 Creation, AV fistula SUTURE,LIGA CLIP SM LT-100 FDA Start: 09-21-2021 Creation, AV fistula SUTURE,LIGA CLIP SM LT-100 FDA Start: 09-21-2021 Creation, AV fistula SUTURE,LIGA CLIP MED LT200 FDA Start: 11-29-2021 Creation, AV fistula SUTURE,LIGA CLIP MED LT200 FDA Start: 11-29-2021 Creation, AV fistula SUTURE,LIGA CLIP MED LT200 FDA Start: 11-29-2021 Creation, AV fistula SUTURE,LIGA CLIP SM LT-100 FDA Start: 11-29-2021 Creation, AV fistula SUTURE,LIGA CLIP SM LT-100 FDA Start: 11-29-2021 Creation, AV fistula SUTURE,LIGA CLIP SM LT-100 FDA Start: 11-29-2021 Creation, AV fistula SUTURE,LIGA CLIP SM LT-100 FDA Start: 11-29-2021 Creation, AV fistula SUTURE,LIGA CLIP SM LT-100 FDA Start: 11-29-2021 Creation, AV fistula SUTURE,LIGA CLIP MED LT200 FDA Start: 09-21-2021 Creation, AV fistula SUTURE,LIGA CLIP MED LT200 FDA Start: 09-21-2021 Creation, AV fistula SUTURE,LIGA CLIP SM LT-100 FDA Start: 09-21-2021 Creation, AV fistula SUTURE,LIGA CLIP SM LT-100 FDA Start: 09-21-2021 Creation, AV fistula SUTURE,LIGA CLIP SM LT-100 FDA Start: 09-21-2021 Creation, AV fistula SUTURE,LIGA CLIP MED LT200 FDA Start: 11-29-2021 Creation, AV fistula SUTURE,LIGA CLIP MED LT200 FDA Start: 11-29-2021 Creation, AV fistula SUTURE,LIGA CLIP MED LT200 FDA Start: 11-29-2021 Creation, AV fistula SUTURE,LIGA CLIP SM LT-100 FDA Start: 11-29-2021 Creation, AV fistula SUTURE,LIGA CLIP SM LT-100 FDA Start: 11-29-2021 Creation, AV fistula SUTURE,LIGA CLIP SM LT-100 FDA Start: 11-29-2021 Creation, AV fistula SUTURE,LIGA CLIP SM LT-100 FDA Start: 11-29-2021 Creation, AV fistula SUTURE,LIGA CLIP SM LT-100 FDA Start: 11-29-2021 Creation, AV fistula SUTURE,LIGA CLIP MED LT200 FDA Start: 09-21-2021 Creation, AV fistula SUTURE,LIGA CLIP MED LT200 FDA Start: 09-21-2021 Creation, AV fistula SUTURE,LIGA CLIP SM LT-100 FDA Start: 09-21-2021 Creation, AV fistula SUTURE,LIGA CLIP SM LT-100 FDA Start: 09-21-2021 Creation, AV fistula SUTURE,LIGA CLIP SM LT-100 FDA Start: 09-21-2021 Creation, AV fistula SUTURE,LIGA CLIP MED LT200 FDA Start: 11-29-2021 Creation, AV fistula SUTURE,LIGA CLIP MED LT200 FDA Start: 11-29-2021 Creation, AV fistula SUTURE,LIGA CLIP MED LT200 FDA Start: 11-29-2021 Creation, AV fistula SUTURE,LIGA CLIP SM LT-100 FDA Start: 11-29-2021 Creation, AV fistula SUTURE,LIGA CLIP SM LT-100 FDA Start: 11-29-2021 Creation, AV fistula SUTURE,LIGA CLIP SM LT-100 FDA Start: 11-29-2021 Creation, AV fistula SUTURE,LIGA CLIP SM LT-100 FDA Start: 11-29-2021 Creation, AV fistula SUTURE,LIGA CLIP SM LT-100 FDA Start: 11-29-2021 Creation, AV fistula SUTURE,LIGA CLIP MED LT200 FDA Start: 09-21-2021 Creation, AV fistula SUTURE,LIGA CLIP MED LT200 FDA Start: 09-21-2021 Creation, AV fistula SUTURE,LIGA CLIP SM LT-100 FDA Start: 09-21-2021 Creation, AV fistula SUTURE,LIGA CLIP SM LT-100 FDA Start: 09-21-2021 Creation, AV fistula SUTURE,LIGA CLIP SM LT-100 FDA Start: 09-21-2021 Creation, AV fistula SUTURE,LIGA CLIP MED LT200 FDA Start: 11-29-2021 Creation, AV fistula SUTURE,LIGA CLIP MED LT200 FDA Start: 11-29-2021 Creation, AV fistula SUTURE,LIGA CLIP MED LT200 FDA Start: 11-29-2021 Creation, AV fistula SUTURE,LIGA CLIP SM LT-100 FDA Start: 11-29-2021 Creation, AV fistula SUTURE,LIGA CLIP SM LT-100 FDA Start: 11-29-2021 Creation, AV fistula SUTURE,LIGA CLIP SM LT-100 FDA Start: 11-29-2021 Creation, AV fistula SUTURE,LIGA CLIP SM LT-100 FDA Start: 11-29-2021 Creation, AV fistula SUTURE,LIGA CLIP SM LT-100 FDA Start: 11-29-2021 Creation, AV fistula SUTURE,LIGA CLIP MED LT200 FDA Start: 09-21-2021 Creation, AV fistula SUTURE,LIGA CLIP MED LT200 FDA Start: 09-21-2021 Creation, AV fistula SUTURE,LIGA CLIP SM LT-100 FDA Start: 09-21-2021 Creation, AV fistula SUTURE,LIGA CLIP SM LT-100 FDA Start: 09-21-2021 Creation, AV fistula SUTURE,LIGA CLIP SM LT-100 FDA Start: 09-21-2021 Creation, AV fistula SUTURE,LIGA CLIP MED LT200 FDA Start: 11-29-2021 Creation, AV fistula SUTURE,LIGA CLIP MED LT200 FDA Start: 11-29-2021 Creation, AV fistula SUTURE,LIGA CLIP MED LT200 FDA Start: 11-29-2021 Creation, AV fistula SUTURE,LIGA CLIP SM LT-100 FDA Start: 11-29-2021 Creation, AV fistula SUTURE,LIGA CLIP SM LT-100 FDA Start: 11-29-2021 Creation, AV fistula SUTURE,LIGA CLIP SM LT-100 FDA Start: 11-29-2021 Creation, AV fistula SUTURE,LIGA CLIP SM LT-100 FDA Start: 11-29-2021 Creation, AV fistula SUTURE,LIGA CLIP SM LT-100 FDA Start: 11-29-2021 Creation, AV fistula SUTURE,LIGA CLIP MED LT200 FDA Start: 09-21-2021 Creation, AV fistula SUTURE,LIGA CLIP MED LT200 FDA Start: 09-21-2021 Creation, AV fistula SUTURE,LIGA CLIP SM LT-100 FDA Start: 09-21-2021 Creation, AV fistula SUTURE,LIGA CLIP SM LT-100 FDA Start: 09-21-2021 Creation, AV fistula SUTURE,LIGA CLIP SM LT-100 FDA Start: 09-21-2021 Creation, AV fistula SUTURE,LIGA CLIP MED LT200 FDA Start: 11-29-2021 Creation, AV fistula SUTURE,LIGA CLIP MED LT200 FDA Start: 11-29-2021 Creation, AV fistula SUTURE,LIGA CLIP MED LT200 FDA Start: 11-29-2021 Creation, AV fistula SUTURE,LIGA CLIP SM LT-100 FDA Start: 11-29-2021 Creation, AV fistula SUTURE,LIGA CLIP SM LT-100 FDA Start: 11-29-2021 Creation, AV fistula SUTURE,LIGA CLIP SM LT-100 FDA Start: 11-29-2021 Creation, AV fistula SUTURE,LIGA CLIP SM LT-100 FDA Start: 11-29-2021 Creation, AV fistula SUTURE,LIGA CLIP SM LT-100 FDA Start: 11-29-2021 Creation, AV fistula SUTURE,LIGA CLIP MED LT200 FDA Start: 09-21-2021 Creation, AV fistula SUTURE,LIGA CLIP MED LT200 FDA Start: 09-21-2021 Creation, AV fistula SUTURE,LIGA CLIP SM LT-100 FDA Start: 09-21-2021 Creation, AV fistula SUTURE,LIGA CLIP SM LT-100 FDA Start: 09-21-2021 Creation, AV fistula SUTURE,LIGA CLIP SM LT-100 FDA Start: 09-21-2021 Creation, AV fistula SUTURE,LIGA CLIP MED LT200 FDA Start: 11-29-2021 Creation, AV fistula SUTURE,LIGA CLIP MED LT200 FDA Start: 11-29-2021 Creation, AV fistula SUTURE,LIGA CLIP MED LT200 FDA Start: 11-29-2021 Creation, AV fistula SUTURE,LIGA CLIP SM LT-100 FDA Start: 11-29-2021 Creation, AV fistula SUTURE,LIGA CLIP SM LT-100 FDA Start: 11-29-2021 Creation, AV fistula SUTURE,LIGA CLIP SM LT-100 FDA Start: 11-29-2021 Creation, AV fistula SUTURE,LIGA CLIP SM LT-100 FDA Start: 11-29-2021 Creation, AV fistula SUTURE,LIGA CLIP SM LT-100 FDA Start: 11-29-2021 Creation, AV fistula SUTURE,LIGA CLIP MED LT200 FDA Start: 09-21-2021 Creation, AV fistula SUTURE,LIGA CLIP MED LT200 FDA Start: 09-21-2021 Creation, AV fistula SUTURE,LIGA CLIP SM LT-100 FDA Start: 09-21-2021 Creation, AV fistula SUTURE,LIGA CLIP SM LT-100 FDA Start: 09-21-2021 Creation, AV fistula SUTURE,LIGA CLIP SM LT-100 FDA Start: 09-21-2021 Creation, AV fistula SUTURE,LIGA CLIP MED LT200 FDA Start: 11-29-2021 Creation, AV fistula SUTURE,LIGA CLIP MED LT200 FDA Start: 11-29-2021 Creation, AV fistula SUTURE,LIGA CLIP MED LT200 FDA Start: 11-29-2021 Creation, AV fistula SUTURE,LIGA CLIP SM LT-100 FDA Start: 11-29-2021 Creation, AV fistula SUTURE,LIGA CLIP SM LT-100 FDA Start: 11-29-2021 Creation, AV fistula SUTURE,LIGA CLIP SM LT-100 FDA Start: 11-29-2021 Creation, AV fistula SUTURE,LIGA CLIP SM LT-100 FDA Start: 11-29-2021 Creation, AV fistula SUTURE,LIGA CLIP SM LT-100 FDA Start: 11-29-2021 Creation, AV fistula SUTURE,LIGA CLIP MED LT200 FDA Start: 09-21-2021 Creation, AV fistula SUTURE,LIGA CLIP MED LT200 FDA Start: 09-21-2021 Creation, AV fistula SUTURE,LIGA CLIP SM LT-100 FDA Start: 09-21-2021 Creation, AV fistula SUTURE,LIGA CLIP SM LT-100 FDA Start: 09-21-2021 Creation, AV fistula SUTURE,LIGA CLIP SM LT-100 FDA Start: 09-21-2021 Creation, AV fistula SUTURE,LIGA CLIP MED LT200 FDA Start: 11-29-2021 Creation, AV fistula SUTURE,LIGA CLIP MED LT200 FDA Start: 11-29-2021 Creation, AV fistula SUTURE,LIGA CLIP MED LT200 FDA Start: 11-29-2021 Creation, AV fistula SUTURE,LIGA CLIP SM LT-100 FDA Start: 11-29-2021 Creation, AV fistula SUTURE,LIGA CLIP SM LT-100 FDA Start: 11-29-2021 Creation, AV fistula SUTURE,LIGA CLIP SM LT-100 FDA Start: 11-29-2021 Creation, AV fistula SUTURE,LIGA CLIP SM LT-100 FDA Start: 11-29-2021 Creation, AV fistula SUTURE,LIGA CLIP SM LT-100 FDA Start: 11-29-2021 Creation, AV fistula SUTURE,LIGA CLIP MED LT200 FDA Start: 09-21-2021 Creation, AV fistula SUTURE,LIGA CLIP MED LT200 FDA Start: 09-21-2021 Creation, AV fistula SUTURE,LIGA CLIP SM LT-100 FDA Start: 09-21-2021 Creation, AV fistula SUTURE,LIGA CLIP SM LT-100 FDA Start: 09-21-2021 Creation, AV fistula SUTURE,LIGA CLIP SM LT-100 FDA Start: 09-21-2021 Creation, AV fistula SUTURE,LIGA CLIP MED LT200 FDA Start: 11-29-2021 Creation, AV fistula SUTURE,LIGA CLIP MED LT200 FDA Start: 11-29-2021 Creation, AV fistula SUTURE,LIGA CLIP MED LT200 FDA Start: 11-29-2021 Creation, AV fistula SUTURE,LIGA CLIP SM LT-100 FDA Start: 11-29-2021 Creation, AV fistula SUTURE,LIGA CLIP SM LT-100 FDA Start: 11-29-2021 Creation, AV fistula SUTURE,LIGA CLIP SM LT-100 FDA Start: 11-29-2021 Creation, AV fistula SUTURE,LIGA CLIP SM LT-100 FDA Start: 11-29-2021 Creation, AV fistula SUTURE,LIGA CLIP SM LT-100 FDA Start: 11-29-2021 Creation, AV fistula SUTURE,LIGA CLIP MED LT200 FDA Start: 09-21-2021 Creation, AV fistula SUTURE,LIGA CLIP MED LT200 FDA Start: 09-21-2021 Creation, AV fistula SUTURE,LIGA CLIP SM LT-100 FDA Start: 09-21-2021 Creation, AV fistula SUTURE,LIGA CLIP SM LT-100 FDA Start: 09-21-2021 Creation, AV fistula SUTURE,LIGA CLIP SM LT-100 FDA Start: 09-21-2021 Creation, AV fistula SUTURE,LIGA CLIP MED LT200 FDA Start: 11-29-2021 Creation, AV fistula SUTURE,LIGA CLIP MED LT200 FDA Start: 11-29-2021 Creation, AV fistula SUTURE,LIGA CLIP MED LT200 FDA Start: 11-29-2021 Creation, AV fistula SUTURE,LIGA CLIP SM LT-100 FDA Start: 11-29-2021 Creation, AV fistula SUTURE,LIGA CLIP SM LT-100 FDA Start: 11-29-2021 Creation, AV fistula SUTURE,LIGA CLIP SM LT-100 FDA Start: 11-29-2021 Creation, AV fistula SUTURE,LIGA CLIP SM LT-100 FDA Start: 11-29-2021 Creation, AV fistula SUTURE,LIGA CLIP SM LT-100 FDA Start: 11-29-2021 Creation, AV fistula SUTURE,LIGA CLIP MED LT200 FDA Start: 09-21-2021 Creation, AV fistula SUTURE,LIGA CLIP MED LT200 FDA Start: 09-21-2021 Creation, AV fistula SUTURE,LIGA CLIP SM LT-100 FDA Start: 09-21-2021 Creation, AV fistula SUTURE,LIGA CLIP SM LT-100 FDA Start: 09-21-2021 Creation, AV fistula SUTURE,LIGA CLIP SM LT-100 FDA Start: 09-21-2021 Creation, AV fistula SUTURE,LIGA CLIP MED LT200 FDA Start: 11-29-2021 Creation, AV fistula SUTURE,LIGA CLIP MED LT200 FDA Start: 11-29-2021 Creation, AV fistula SUTURE,LIGA CLIP MED LT200 FDA Start: 11-29-2021 Creation, AV fistula SUTURE,LIGA CLIP SM LT-100 FDA Start: 11-29-2021 Creation, AV fistula SUTURE,LIGA CLIP SM LT-100 FDA Start: 11-29-2021 Creation, AV fistula SUTURE,LIGA CLIP SM LT-100 FDA Start: 11-29-2021 Creation, AV fistula SUTURE,LIGA CLIP SM LT-100 FDA Start: 11-29-2021 Creation, AV fistula SUTURE,LIGA CLIP SM LT-100 FDA Start: 11-29-2021 Creation, AV fistula SUTURE,LIGA CLIP MED LT200 FDA Start: 09-21-2021 Creation, AV fistula SUTURE,LIGA CLIP MED LT200 FDA Start: 09-21-2021 Creation, AV fistula SUTURE,LIGA CLIP SM LT-100 FDA Start: 09-21-2021 Creation, AV fistula SUTURE,LIGA CLIP SM LT-100 FDA Start: 09-21-2021 Creation, AV fistula SUTURE,LIGA CLIP SM LT-100 FDA Start: 09-21-2021 Creation, AV fistula SUTURE,LIGA CLIP MED LT200 FDA Start: 11-29-2021 Creation, AV fistula SUTURE,LIGA CLIP MED LT200 FDA Start: 11-29-2021 Creation, AV fistula SUTURE,LIGA CLIP MED LT200 FDA Start: 11-29-2021 Creation, AV fistula SUTURE,LIGA CLIP SM LT-100 FDA Start: 11-29-2021 Creation, AV fistula SUTURE,LIGA CLIP SM LT-100 FDA Start: 11-29-2021 Creation, AV fistula SUTURE,LIGA CLIP SM LT-100 FDA Start: 11-29-2021 Creation, AV fistula SUTURE,LIGA CLIP SM LT-100 FDA Start: 11-29-2021 Creation, AV fistula SUTURE,LIGA CLIP SM LT-100 FDA Start: 11-29-2021 Creation, AV fistula SUTURE,LIGA CLIP MED LT200 FDA Start: 09-21-2021 Creation, AV fistula SUTURE,LIGA CLIP MED LT200 FDA Start: 09-21-2021 Creation, AV fistula SUTURE,LIGA CLIP SM LT-100 FDA Start: 09-21-2021 Creation, AV fistula SUTURE,LIGA CLIP SM LT-100 FDA Start: 09-21-2021 Creation, AV fistula SUTURE,LIGA CLIP SM LT-100 FDA Start: 09-21-2021 Creation, AV fistula SUTURE,LIGA CLIP MED LT200 FDA Start: 11-29-2021 Creation, AV fistula SUTURE,LIGA CLIP MED LT200 FDA Start: 11-29-2021 Creation, AV fistula SUTURE,LIGA CLIP MED LT200 FDA Start: 11-29-2021 Creation, AV fistula SUTURE,LIGA CLIP SM LT-100 FDA Start: 11-29-2021 Creation, AV fistula SUTURE,LIGA CLIP SM LT-100 FDA Start: 11-29-2021 Creation, AV fistula SUTURE,LIGA CLIP SM LT-100 FDA Start: 11-29-2021 Creation, AV fistula SUTURE,LIGA CLIP SM LT-100 FDA Start: 11-29-2021 Creation, AV fistula SUTURE,LIGA CLIP SM LT-100 FDA Start: 11-29-2021 Creation, AV fistula SUTURE,LIGA CLIP MED LT200 FDA Start: 09-21-2021 Creation, AV fistula SUTURE,LIGA CLIP MED LT200 FDA Start: 09-21-2021 Creation, AV fistula SUTURE,LIGA CLIP SM LT-100 FDA Start: 09-21-2021 Creation, AV fistula SUTURE,LIGA CLIP SM LT-100 FDA Start: 09-21-2021 Creation, AV fistula SUTURE,LIGA CLIP SM LT-100 FDA Start: 09-21-2021 Creation, AV fistula SUTURE,LIGA CLIP MED LT200 FDA Start: 11-29-2021 Creation, AV fistula SUTURE,LIGA CLIP MED LT200 FDA Start: 11-29-2021 Creation, AV fistula SUTURE,LIGA CLIP MED LT200 FDA Start: 11-29-2021 Creation, AV fistula SUTURE,LIGA CLIP SM LT-100 FDA Start: 11-29-2021 Creation, AV fistula SUTURE,LIGA CLIP SM LT-100 FDA Start: 11-29-2021 Creation, AV fistula SUTURE,LIGA CLIP SM LT-100 FDA Start: 11-29-2021 Creation, AV fistula SUTURE,LIGA CLIP SM LT-100 FDA Start: 11-29-2021 Creation, AV fistula SUTURE,LIGA CLIP SM LT-100 FDA Start: 11-29-2021 Creation, AV fistula SUTURE,LIGA CLIP MED LT200 FDA Start: 09-21-2021 Creation, AV fistula SUTURE,LIGA CLIP MED LT200 FDA Start: 09-21-2021 Creation, AV fistula SUTURE,LIGA CLIP SM LT-100 FDA Start: 09-21-2021 Creation, AV fistula SUTURE,LIGA CLIP SM LT-100 FDA Start: 09-21-2021 Creation, AV fistula SUTURE,LIGA CLIP SM LT-100 FDA Start: 09-21-2021 Creation, AV fistula SUTURE,LIGA CLIP MED LT200 FDA Start: 11-29-2021 Creation, AV fistula SUTURE,LIGA CLIP MED LT200 FDA Start: 11-29-2021 Creation, AV fistula SUTURE,LIGA CLIP MED LT200 FDA Start: 11-29-2021 Creation, AV fistula SUTURE,LIGA CLIP SM LT-100 FDA Start: 11-29-2021 Creation, AV fistula SUTURE,LIGA CLIP SM LT-100 FDA Start: 11-29-2021 Creation, AV fistula SUTURE,LIGA CLIP SM LT-100 FDA Start: 11-29-2021 Creation, AV fistula SUTURE,LIGA CLIP SM LT-100 FDA Start: 11-29-2021 Creation, AV fistula SUTURE,LIGA CLIP SM LT-100 FDA Start: 11-29-2021 Creation, AV fistula SUTURE,LIGA CLIP MED LT200 FDA Start: 09-21-2021 Creation, AV fistula SUTURE,LIGA CLIP MED LT200 FDA Start: 09-21-2021 Creation, AV fistula SUTURE,LIGA CLIP SM LT-100 FDA Start: 09-21-2021 Creation, AV fistula SUTURE,LIGA CLIP SM LT-100 FDA Start: 09-21-2021 Creation, AV fistula SUTURE,LIGA CLIP SM LT-100 FDA Start: 09-21-2021 Creation, AV fistula SUTURE,LIGA CLIP MED LT200 FDA Start: 11-29-2021 Creation, AV fistula SUTURE,LIGA CLIP MED LT200 FDA Start: 11-29-2021 Creation, AV fistula SUTURE,LIGA CLIP MED LT200 FDA Start: 11-29-2021 Creation, AV fistula SUTURE,LIGA CLIP SM LT-100 FDA Start: 11-29-2021 Creation, AV fistula SUTURE,LIGA CLIP SM LT-100 FDA Start: 11-29-2021 Creation, AV fistula SUTURE,LIGA CLIP SM LT-100 FDA Start: 11-29-2021 Creation, AV fistula SUTURE,LIGA CLIP SM LT-100 FDA Start: 11-29-2021 Creation, AV fistula SUTURE,LIGA CLIP SM LT-100 FDA Start: 11-29-2021 Creation, AV fistula SUTURE,LIGA CLIP MED LT200 FDA Start: 09-21-2021 Creation, AV fistula SUTURE,LIGA CLIP MED LT200 FDA Start: 09-21-2021 Creation, AV fistula SUTURE,LIGA CLIP SM LT-100 FDA Start: 09-21-2021 Creation, AV fistula SUTURE,LIGA CLIP SM LT-100 FDA Start: 09-21-2021 Creation, AV fistula SUTURE,LIGA CLIP SM LT-100 FDA Start: 09-21-2021 Creation, AV fistula SUTURE,LIGA CLIP MED LT200 FDA Start: 11-29-2021 Creation, AV fistula SUTURE,LIGA CLIP MED LT200 FDA Start: 11-29-2021 Creation, AV fistula SUTURE,LIGA CLIP MED LT200 FDA Start: 11-29-2021 Creation, AV fistula SUTURE,LIGA CLIP SM LT-100 FDA Start: 11-29-2021 Creation, AV fistula SUTURE,LIGA CLIP SM LT-100 FDA Start: 11-29-2021 Creation, AV fistula SUTURE,LIGA CLIP SM LT-100 FDA Start: 11-29-2021 Creation, AV fistula SUTURE,LIGA CLIP SM LT-100 FDA Start: 11-29-2021 Creation, AV fistula SUTURE,LIGA CLIP SM LT-100 FDA Start: 11-29-2021 Creation, AV fistula SUTURE,LIGA CLIP MED LT200 FDA Start: 09-21-2021 Creation, AV fistula SUTURE,LIGA CLIP MED LT200 FDA Start: 09-21-2021 Creation, AV fistula SUTURE,LIGA CLIP SM LT-100 FDA Start: 09-21-2021 Creation, AV fistula SUTURE,LIGA CLIP SM LT-100 FDA Start: 09-21-2021 Creation, AV fistula SUTURE,LIGA CLIP SM LT-100 FDA Start: 09-21-2021 Creation, AV fistula SUTURE,LIGA CLIP MED LT200 FDA Start: 11-29-2021 Creation, AV fistula SUTURE,LIGA CLIP MED LT200 FDA Start: 11-29-2021 Creation, AV fistula SUTURE,LIGA CLIP MED LT200 FDA Start: 11-29-2021 Creation, AV fistula SUTURE,LIGA CLIP SM LT-100 FDA Start: 11-29-2021 Creation, AV fistula SUTURE,LIGA CLIP SM LT-100 FDA Start: 11-29-2021 Creation, AV fistula SUTURE,LIGA CLIP SM LT-100 FDA Start: 11-29-2021 Creation, AV fistula SUTURE,LIGA CLIP SM LT-100 FDA Start: 11-29-2021 Creation, AV fistula SUTURE,LIGA CLIP SM LT-100 FDA Start: 11-29-2021 Creation, AV fistula SUTURE,LIGA CLIP MED LT200 FDA Start: 09-21-2021 Creation, AV fistula SUTURE,LIGA CLIP MED LT200 FDA Start: 09-21-2021 Creation, AV fistula SUTURE,LIGA CLIP SM LT-100 FDA Start: 09-21-2021 Creation, AV fistula SUTURE,LIGA CLIP SM LT-100 FDA Start: 09-21-2021 Creation, AV fistula SUTURE,LIGA CLIP SM LT-100 FDA Start: 09-21-2021 Creation, AV fistula SUTURE,LIGA CLIP MED LT200 FDA Start: 11-29-2021 Creation, AV fistula SUTURE,LIGA CLIP MED LT200 FDA Start: 11-29-2021 Creation, AV fistula SUTURE,LIGA CLIP MED LT200 FDA Start: 11-29-2021 Creation, AV fistula SUTURE,LIGA CLIP SM LT-100 FDA Start: 11-29-2021 Creation, AV fistula SUTURE,LIGA CLIP SM LT-100 FDA Start: 11-29-2021 Creation, AV fistula SUTURE,LIGA CLIP SM LT-100 FDA Start: 11-29-2021 Creation, AV fistula SUTURE,LIGA CLIP SM LT-100 FDA Start: 11-29-2021 Creation, AV fistula SUTURE,LIGA CLIP SM LT-100 FDA Start: 11-29-2021 Creation, AV fistula SUTURE,LIGA CLIP MED LT200 FDA Start: 09-21-2021 Creation, AV fistula SUTURE,LIGA CLIP MED LT200 FDA Start: 09-21-2021 Creation, AV fistula SUTURE,LIGA CLIP SM LT-100 FDA Start: 09-21-2021 Creation, AV fistula SUTURE,LIGA CLIP SM LT-100 FDA Start: 09-21-2021 Creation, AV fistula SUTURE,LIGA CLIP SM LT-100 FDA Start: 09-21-2021 Creation, AV fistula SUTURE,LIGA CLIP MED LT200 FDA Start: 11-29-2021 Creation, AV fistula SUTURE,LIGA CLIP MED LT200 FDA Start: 11-29-2021 Creation, AV fistula SUTURE,LIGA CLIP MED LT200 FDA Start: 11-29-2021 Creation, AV fistula SUTURE,LIGA CLIP SM LT-100 FDA Start: 11-29-2021 Creation, AV fistula SUTURE,LIGA CLIP SM LT-100 FDA Start: 11-29-2021 Creation, AV fistula SUTURE,LIGA CLIP SM LT-100 FDA Start: 11-29-2021 Creation, AV fistula SUTURE,LIGA CLIP SM LT-100 FDA Start: 11-29-2021 Creation, AV fistula SUTURE,LIGA CLIP SM LT-100 FDA Start: 11-29-2021 Creation, AV fistula SUTURE,LIGA CLIP MED LT200 FDA Start: 09-21-2021 Creation, AV fistula SUTURE,LIGA CLIP MED LT200 FDA Start: 09-21-2021 Creation, AV fistula SUTURE,LIGA CLIP SM LT-100 FDA Start: 09-21-2021 Creation, AV fistula SUTURE,LIGA CLIP SM LT-100 FDA Start: 09-21-2021 Creation, AV fistula SUTURE,LIGA CLIP SM LT-100 FDA Start: 09-21-2021 Creation, AV fistula SUTURE,LIGA CLIP MED LT200 FDA Start: 11-29-2021 Creation, AV fistula SUTURE,LIGA CLIP MED LT200 FDA Start: 11-29-2021 Creation, AV fistula SUTURE,LIGA CLIP MED LT200 FDA Start: 11-29-2021 Creation, AV fistula SUTURE,LIGA CLIP SM LT-100 FDA Start: 11-29-2021 Creation, AV fistula SUTURE,LIGA CLIP SM LT-100 FDA Start: 11-29-2021 Creation, AV fistula SUTURE,LIGA CLIP SM LT-100 FDA Start: 11-29-2021 Creation, AV fistula SUTURE,LIGA CLIP SM LT-100 FDA Start: 11-29-2021 Creation, AV fistula SUTURE,LIGA CLIP SM LT-100 FDA Start: 11-29-2021 Creation, AV fistula SUTURE,LIGA CLIP MED LT200 FDA Start: 09-21-2021 Creation, AV fistula SUTURE,LIGA CLIP MED LT200 FDA Start: 09-21-2021 Creation, AV fistula SUTURE,LIGA CLIP SM LT-100 FDA Start: 09-21-2021 Creation, AV fistula SUTURE,LIGA CLIP SM LT-100 FDA Start: 09-21-2021 Creation, AV fistula SUTURE,LIGA CLIP SM LT-100 FDA Start: 09-21-2021 Creation, AV fistula SUTURE,LIGA CLIP MED LT200 FDA Start: 11-29-2021 Creation, AV fistula SUTURE,LIGA CLIP MED LT200 FDA Start: 11-29-2021 Creation, AV fistula SUTURE,LIGA CLIP MED LT200 FDA Start: 11-29-2021 Creation, AV fistula SUTURE,LIGA CLIP SM LT-100 FDA Start: 11-29-2021 Creation, AV fistula SUTURE,LIGA CLIP SM LT-100 FDA Start: 11-29-2021 Creation, AV fistula SUTURE,LIGA CLIP SM LT-100 FDA Start: 11-29-2021 Creation, AV fistula SUTURE,LIGA CLIP SM LT-100 FDA Start: 11-29-2021 Creation, AV fistula SUTURE,LIGA CLIP SM LT-100 FDA Start: 11-29-2021 Creation, AV fistula SUTURE,LIGA CLIP MED LT200 FDA Start: 09-21-2021 Creation, AV fistula SUTURE,LIGA CLIP MED LT200 FDA Start: 09-21-2021 Creation, AV fistula SUTURE,LIGA CLIP SM LT-100 FDA Start: 09-21-2021 Creation, AV fistula SUTURE,LIGA CLIP SM LT-100 FDA Start: 09-21-2021 Creation, AV fistula SUTURE,LIGA CLIP SM LT-100 FDA Start: 09-21-2021 Creation, AV fistula SUTURE,LIGA CLIP MED LT200 FDA Start: 11-29-2021 Creation, AV fistula SUTURE,LIGA CLIP MED LT200 FDA Start: 11-29-2021 Creation, AV fistula SUTURE,LIGA CLIP MED LT200 FDA Start: 11-29-2021 Creation, AV fistula SUTURE,LIGA CLIP SM LT-100 FDA Start: 11-29-2021 Creation, AV fistula SUTURE,LIGA CLIP SM LT-100 FDA Start: 11-29-2021 Creation, AV fistula SUTURE,LIGA CLIP SM LT-100 FDA Start: 11-29-2021 Creation, AV fistula SUTURE,LIGA CLIP SM LT-100 FDA Start: 11-29-2021 Creation, AV fistula SUTURE,LIGA CLIP SM LT-100 FDA Start: 11-29-2021 Creation, AV fistula SUTURE,LIGA CLIP MED LT200 FDA Start: 09-21-2021 Creation, AV fistula SUTURE,LIGA CLIP MED LT200 FDA Start: 09-21-2021 Creation, AV fistula SUTURE,LIGA CLIP SM LT-100 FDA Start: 09-21-2021 Creation, AV fistula SUTURE,LIGA CLIP SM LT-100 FDA Start: 09-21-2021 Creation, AV fistula SUTURE,LIGA CLIP SM LT-100 FDA Start: 09-21-2021 Creation, AV fistula SUTURE,LIGA CLIP MED LT200 FDA Start: 11-29-2021 Creation, AV fistula SUTURE,LIGA CLIP MED LT200 FDA Start: 11-29-2021 Creation, AV fistula SUTURE,LIGA CLIP MED LT200 FDA Start: 11-29-2021 Creation, AV fistula SUTURE,LIGA CLIP SM LT-100 FDA Start: 11-29-2021 Creation, AV fistula SUTURE,LIGA CLIP SM LT-100 FDA Start: 11-29-2021 Creation, AV fistula SUTURE,LIGA CLIP SM LT-100 FDA Start: 11-29-2021 Creation, AV fistula SUTURE,LIGA CLIP SM LT-100 FDA Start: 11-29-2021 Creation, AV fistula SUTURE,LIGA CLIP SM LT-100 FDA Start: 11-29-2021 Creation, AV fistula SUTURE,LIGA CLIP MED LT200 FDA Start: 09-21-2021 Creation, AV fistula SUTURE,LIGA CLIP MED LT200 FDA Start: 09-21-2021 Creation, AV fistula SUTURE,LIGA CLIP SM LT-100 FDA Start: 09-21-2021 Creation, AV fistula SUTURE,LIGA CLIP SM LT-100 FDA Start: 09-21-2021 Creation, AV fistula SUTURE,LIGA CLIP SM LT-100 FDA Start: 09-21-2021 Creation, AV fistula SUTURE,LIGA CLIP MED LT200 FDA Start: 11-29-2021 Creation, AV fistula SUTURE,LIGA CLIP MED LT200 FDA Start: 11-29-2021 Creation, AV fistula SUTURE,LIGA CLIP MED LT200 FDA Start: 11-29-2021 Creation, AV fistula SUTURE,LIGA CLIP SM LT-100 FDA Start: 11-29-2021 Creation, AV fistula SUTURE,LIGA CLIP SM LT-100 FDA Start: 11-29-2021 Creation, AV fistula SUTURE,LIGA CLIP SM LT-100 FDA Start: 11-29-2021 Creation, AV fistula SUTURE,LIGA CLIP SM LT-100 FDA Start: 11-29-2021 Creation, AV fistula SUTURE,LIGA CLIP SM LT-100 FDA Start: 11-29-2021 Creation, AV fistula SUTURE,LIGA CLIP MED LT200 FDA Start: 09-21-2021 Creation, AV fistula SUTURE,LIGA CLIP MED LT200 FDA Start: 09-21-2021 Creation, AV fistula SUTURE,LIGA CLIP SM LT-100 FDA Start: 09-21-2021 Creation, AV fistula SUTURE,LIGA CLIP SM LT-100 FDA Start: 09-21-2021 Creation, AV fistula SUTURE,LIGA CLIP SM LT-100 FDA Start: 09-21-2021 Creation, AV fistula SUTURE,LIGA CLIP MED LT200 FDA Start: 11-29-2021 Creation, AV fistula SUTURE,LIGA CLIP MED LT200 FDA Start: 11-29-2021 Creation, AV fistula SUTURE,LIGA CLIP MED LT200 FDA Start: 11-29-2021 Creation, AV fistula SUTURE,LIGA CLIP SM LT-100 FDA Start: 11-29-2021 Creation, AV fistula SUTURE,LIGA CLIP SM LT-100 FDA Start: 11-29-2021 Creation, AV fistula SUTURE,LIGA CLIP SM LT-100 FDA Start: 11-29-2021 Creation, AV fistula SUTURE,LIGA CLIP SM LT-100 FDA Start: 11-29-2021 Creation, AV fistula SUTURE,LIGA CLIP SM LT-100 FDA Start: 11-29-2021 Creation, AV fistula SUTURE,LIGA CLIP MED LT200 FDA Start: 09-21-2021 Creation, AV fistula SUTURE,LIGA CLIP MED LT200 FDA Start: 09-21-2021 Creation, AV fistula SUTURE,LIGA CLIP SM LT-100 FDA Start: 09-21-2021 Creation, AV fistula SUTURE,LIGA CLIP SM LT-100 FDA Start: 09-21-2021 Creation, AV fistula SUTURE,LIGA CLIP SM LT-100 FDA Start: 09-21-2021 Creation, AV fistula SUTURE,LIGA CLIP MED LT200 FDA Start: 11-29-2021 Creation, AV fistula SUTURE,LIGA CLIP MED LT200 FDA Start: 11-29-2021 Creation, AV fistula SUTURE,LIGA CLIP MED LT200 FDA Start: 11-29-2021 Creation, AV fistula SUTURE,LIGA CLIP SM LT-100 FDA Start: 11-29-2021 Creation, AV fistula SUTURE,LIGA CLIP SM LT-100 FDA Start: 11-29-2021 Creation, AV fistula SUTURE,LIGA CLIP SM LT-100 FDA Start: 11-29-2021 Creation, AV fistula SUTURE,LIGA CLIP SM LT-100 FDA Start: 11-29-2021 Creation, AV fistula SUTURE,LIGA CLIP SM LT-100 FDA Start: 11-29-2021 Creation, AV fistula SUTURE,LIGA CLIP MED LT200 FDA Start: 09-21-2021 Creation, AV fistula SUTURE,LIGA CLIP MED LT200 FDA Start: 09-21-2021 Creation, AV fistula SUTURE,LIGA CLIP SM LT-100 FDA Start: 09-21-2021 Creation, AV fistula SUTURE,LIGA CLIP SM LT-100 FDA Start: 09-21-2021 Creation, AV fistula SUTURE,LIGA CLIP SM LT-100 FDA Start: 09-21-2021 Creation, AV fistula SUTURE,LIGA CLIP MED LT200 FDA Start: 11-29-2021 Creation, AV fistula SUTURE,LIGA CLIP MED LT200 FDA Start: 11-29-2021 Creation, AV fistula SUTURE,LIGA CLIP MED LT200 FDA Start: 11-29-2021 Creation, AV fistula SUTURE,LIGA CLIP SM LT-100 FDA Start: 11-29-2021 Creation, AV fistula SUTURE,LIGA CLIP SM LT-100 FDA Start: 11-29-2021 Creation, AV fistula SUTURE,LIGA CLIP SM LT-100 FDA Start: 11-29-2021 Creation, AV fistula SUTURE,LIGA CLIP SM LT-100 FDA Start: 11-29-2021 Creation, AV fistula SUTURE,LIGA CLIP SM LT-100 FDA Start: 11-29-2021 Creation, AV fistula FDA Star t: 09-21-2021 Creation, AV fistula FDA Star t: 09-21-2021 Creation, AV fistula FDA Star t: 09-21-2021 Creation, AV fistula FDA Star t: 09-21-2021 Creation, AV fistula FDA Star t: 09-21-2021 Creation, AV fistula FDA Star t: 11-29-2021 Creation, AV fistula FDA Star t: 11-29-2021 Creation, AV fistula FDA Star t: 11-29-2021 Creation, AV fistula FDA Star t: 11-29-2021 Creation, AV fistula FDA Star t: 11-29-2021 Creation, AV fistula FDA Star t: 11-29-2021 Creation, AV fistula FDA Star t: 11-29-2021 Creation, AV fistula FDA Star t: 11-29-2021 Creation, AV fistula FDA Star t: 09-21-2021 Creation, AV fistula FDA Star t: 09-21-2021 Creation, AV fistula FDA Star t: 09-21-2021 Creation, AV fistula FDA Star t: 09-21-2021 Creation, AV fistula FDA Star t: 09-21-2021 Creation, AV fistula FDA Star t: 11-29-2021 Creation, AV fistula FDA Star t: 11-29-2021 Creation, AV fistula FDA Star t: 11-29-2021 Creation, AV fistula FDA Star t: 11-29-2021 Creation, AV fistula FDA Star t: 11-29-2021 Creation, AV fistula FDA Star t: 11-29-2021 Creation, AV fistula FDA Star t: 11-29-2021 Creation, AV fistula FDA Star t: 11-29-2021 Creation, AV fistula FDA Star t: 09-21-2021 Creation, AV fistula FDA Star t: 09-21-2021 Creation, AV fistula FDA Star t: 09-21-2021 Creation, AV fistula FDA Star t: 09-21-2021 Creation, AV fistula FDA Star t: 09-21-2021 Creation, AV fistula FDA Star t: 11-29-2021 Creation, AV fistula FDA Star t: 11-29-2021 Creation, AV fistula FDA Star t: 11-29-2021 Creation, AV fistula FDA Star t: 11-29-2021 Creation, AV fistula FDA Star t: 11-29-2021 Creation, AV fistula FDA Star t: 11-29-2021 Creation, AV fistula FDA Star t: 11-29-2021 Creation, AV fistula FDA Star t: 11-29-2021 Creation, AV fistula FDA Star t: 09-21-2021 Creation, AV fistula FDA Star t: 09-21-2021 Creation, AV fistula FDA Star t: 09-21-2021 Creation, AV fistula FDA Star t: 09-21-2021 Creation, AV fistula FDA Star t: 09-21-2021 Creation, AV fistula FDA Star t: 11-29-2021 Creation, AV fistula FDA Star t: 11-29-2021 Creation, AV fistula FDA Star t: 11-29-2021 Creation, AV fistula FDA Star t: 11-29-2021 Creation, AV fistula FDA Star t: 11-29-2021 Creation, AV fistula FDA Star t: 11-29-2021 Creation, AV fistula FDA Star t: 11-29-2021 Creation, AV fistula FDA Star t: 11-29-2021 Creation, AV fistula FDA Star t: 09-21-2021 Creation, AV fistula FDA Star t: 09-21-2021 Creation, AV fistula FDA Star t: 09-21-2021 Creation, AV fistula FDA Star t: 09-21-2021 Creation, AV fistula FDA Star t: 09-21-2021 Creation, AV fistula FDA Star t: 11-29-2021 Creation, AV fistula FDA Star t: 11-29-2021 Creation, AV fistula FDA Star t: 11-29-2021 Creation, AV fistula FDA Star t: 11-29-2021 Creation, AV fistula FDA Star t: 11-29-2021 Creation, AV fistula FDA Star t: 11-29-2021 Creation, AV fistula FDA Star t: 11-29-2021 Creation, AV fistula FDA Star t: 11-29-2021 Creation, AV fistula FDA Star t: 09-21-2021 Creation, AV fistula FDA Star t: 09-21-2021 Creation, AV fistula FDA Star t: 09-21-2021 Creation, AV fistula FDA Star t: 09-21-2021 Creation, AV fistula FDA Star t: 09-21-2021 Creation, AV fistula FDA Star t: 11-29-2021 Creation, AV fistula FDA Star t: 11-29-2021 Creation, AV fistula FDA Star t: 11-29-2021 Creation, AV fistula FDA Star t: 11-29-2021 Creation, AV fistula FDA Star t: 11-29-2021 Creation, AV fistula FDA Star t: 11-29-2021 Creation, AV fistula FDA Star t: 11-29-2021 Creation, AV fistula FDA Star t: 11-29-2021 Creation, AV fistula SUTURE,LIGA CLIP MED LT200 FDA Start: 09-21-2021 Creation, AV fistula SUTURE,LIGA CLIP MED LT200 FDA Start: 09-21-2021 Creation, AV fistula SUTURE,LIGA CLIP SM LT-100 FDA Start: 09-21-2021 Creation, AV fistula SUTURE,LIGA CLIP SM LT-100 FDA Start: 09-21-2021 Creation, AV fistula SUTURE,LIGA CLIP SM LT-100 FDA Start: 09-21-2021 Creation, AV fistula SUTURE,LIGA CLIP MED LT200 FDA Start: 11-29-2021 Creation, AV fistula SUTURE,LIGA CLIP MED LT200 FDA Start: 11-29-2021 Creation, AV fistula SUTURE,LIGA CLIP MED LT200 FDA Start: 11-29-2021 Creation, AV fistula SUTURE,LIGA CLIP SM LT-100 FDA Start: 11-29-2021 Creation, AV fistula SUTURE,LIGA CLIP SM LT-100 FDA Start: 11-29-2021 Creation, AV fistula SUTURE,LIGA CLIP SM LT-100 FDA Start: 11-29-2021 Creation, AV fistula SUTURE,LIGA CLIP SM LT-100 FDA Start: 11-29-2021 Creation, AV fistula SUTURE,LIGA CLIP SM LT-100 FDA Start: 11-29-2021 Creation, AV fistula SUTURE,LIGA CLIP MED LT200 FDA Start: 09-21-2021 Creation, AV fistula SUTURE,LIGA CLIP MED LT200 FDA Start: 09-21-2021 Creation, AV fistula SUTURE,LIGA CLIP SM LT-100 FDA Start: 09-21-2021 Creation, AV fistula SUTURE,LIGA CLIP SM LT-100 FDA Start: 09-21-2021 Creation, AV fistula SUTURE,LIGA CLIP SM LT-100 FDA Start: 09-21-2021 Creation, AV fistula SUTURE,LIGA CLIP MED LT200 FDA Start: 11-29-2021 Creation, AV fistula SUTURE,LIGA CLIP MED LT200 FDA Start: 11-29-2021 Creation, AV fistula SUTURE,LIGA CLIP MED LT200 FDA Start: 11-29-2021 Creation, AV fistula SUTURE,LIGA CLIP SM LT-100 FDA Start: 11-29-2021 Creation, AV fistula SUTURE,LIGA CLIP SM LT-100 FDA Start: 11-29-2021 Creation, AV fistula SUTURE,LIGA CLIP SM LT-100 FDA Start: 11-29-2021 Creation, AV fistula SUTURE,LIGA CLIP SM LT-100 FDA Start: 11-29-2021 Creation, AV fistula SUTURE,LIGA CLIP SM LT-100 FDA Start: 11-29-2021 Creation, AV fistula SUTURE,LIGA CLIP MED LT200 FDA Start: 09-21-2021 Creation, AV fistula SUTURE,LIGA CLIP MED LT200 FDA Start: 09-21-2021 Creation, AV fistula SUTURE,LIGA CLIP SM LT-100 FDA Start: 09-21-2021 Creation, AV fistula SUTURE,LIGA CLIP SM LT-100 FDA Start: 09-21-2021 Creation, AV fistula SUTURE,LIGA CLIP SM LT-100 FDA Start: 09-21-2021 Creation, AV fistula SUTURE,LIGA CLIP MED LT200 FDA Start: 11-29-2021 Creation, AV fistula SUTURE,LIGA CLIP MED LT200 FDA Start: 11-29-2021 Creation, AV fistula SUTURE,LIGA CLIP MED LT200 FDA Start: 11-29-2021 Creation, AV fistula SUTURE,LIGA CLIP SM LT-100 FDA Start: 11-29-2021 Creation, AV fistula SUTURE,LIGA CLIP SM LT-100 FDA Start: 11-29-2021 Creation, AV fistula SUTURE,LIGA CLIP SM LT-100 FDA Start: 11-29-2021 Creation, AV fistula SUTURE,LIGA CLIP SM LT-100 FDA Start: 11-29-2021 Creation, AV fistula SUTURE,LIGA CLIP SM LT-100 FDA Start: 11-29-2021 Creation, AV fistula SUTURE,LIGA CLIP MED LT200 FDA Start: 09-21-2021 Creation, AV fistula SUTURE,LIGA CLIP MED LT200 FDA Start: 09-21-2021 Creation, AV fistula SUTURE,LIGA CLIP SM LT-100 FDA Start: 09-21-2021 Creation, AV fistula SUTURE,LIGA CLIP SM LT-100 FDA Start: 09-21-2021 Creation, AV fistula SUTURE,LIGA CLIP SM LT-100 FDA Start: 09-21-2021 Creation, AV fistula SUTURE,LIGA CLIP MED LT200 FDA Start: 11-29-2021 Creation, AV fistula SUTURE,LIGA CLIP MED LT200 FDA Start: 11-29-2021 Creation, AV fistula SUTURE,LIGA CLIP MED LT200 FDA Start: 11-29-2021 Creation, AV fistula SUTURE,LIGA CLIP SM LT-100 FDA Start: 11-29-2021 Creation, AV fistula SUTURE,LIGA CLIP SM LT-100 FDA Start: 11-29-2021 Creation, AV fistula SUTURE,LIGA CLIP SM LT-100 FDA Start: 11-29-2021 Creation, AV fistula SUTURE,LIGA CLIP SM LT-100 FDA Start: 11-29-2021 Creation, AV fistula SUTURE,LIGA CLIP SM LT-100 FDA Start: 11-29-2021 Creation, AV fistula SUTURE,LIGA CLIP MED LT200 FDA Start: 09-21-2021 Creation, AV fistula SUTURE,LIGA CLIP MED LT200 FDA Start: 09-21-2021 Creation, AV fistula SUTURE,LIGA CLIP SM LT-100 FDA Start: 09-21-2021 Creation, AV fistula SUTURE,LIGA CLIP SM LT-100 FDA Start: 09-21-2021 Creation, AV fistula SUTURE,LIGA CLIP SM LT-100 FDA Start: 09-21-2021 Creation, AV fistula SUTURE,LIGA CLIP MED LT200 FDA Start: 11-29-2021 Creation, AV fistula SUTURE,LIGA CLIP MED LT200 FDA Start: 11-29-2021 Creation, AV fistula SUTURE,LIGA CLIP MED LT200 FDA Start: 11-29-2021 Creation, AV fistula SUTURE,LIGA CLIP SM LT-100 FDA Start: 11-29-2021 Creation, AV fistula SUTURE,LIGA CLIP SM LT-100 FDA Start: 11-29-2021 Creation, AV fistula SUTURE,LIGA CLIP SM LT-100 FDA Start: 11-29-2021 Creation, AV fistula SUTURE,LIGA CLIP SM LT-100 FDA Start: 11-29-2021 Creation, AV fistula SUTURE,LIGA CLIP SM LT-100 FDA Start: 11-29-2021 Creation, AV fistula SUTURE,LIGA CLIP MED LT200 FDA Start: 09-21-2021 Creation, AV fistula SUTURE,LIGA CLIP MED LT200 FDA Start: 09-21-2021 Creation, AV fistula SUTURE,LIGA CLIP SM LT-100 FDA Start: 09-21-2021 Creation, AV fistula SUTURE,LIGA CLIP SM LT-100 FDA Start: 09-21-2021 Creation, AV fistula SUTURE,LIGA CLIP SM LT-100 FDA Start: 09-21-2021 Creation, AV fistula SUTURE,LIGA CLIP MED LT200 FDA Start: 11-29-2021 Creation, AV fistula SUTURE,LIGA CLIP MED LT200 FDA Start: 11-29-2021 Creation, AV fistula SUTURE,LIGA CLIP MED LT200 FDA Start: 11-29-2021 Creation, AV fistula SUTURE,LIGA CLIP SM LT-100 FDA Start: 11-29-2021 Creation, AV fistula SUTURE,LIGA CLIP SM LT-100 FDA Start: 11-29-2021 Creation, AV fistula SUTURE,LIGA CLIP SM LT-100 FDA Start: 11-29-2021 Creation, AV fistula SUTURE,LIGA CLIP SM LT-100 FDA Start: 11-29-2021 Creation, AV fistula SUTURE,LIGA CLIP SM LT-100 FDA Start: 11-29-2021 Creation, AV fistula SUTURE,LIGA CLIP MED LT200 FDA Start: 09-21-2021 Creation, AV fistula SUTURE,LIGA CLIP MED LT200 FDA Start: 09-21-2021 Creation, AV fistula SUTURE,LIGA CLIP SM LT-100 FDA Start: 09-21-2021 Creation, AV fistula SUTURE,LIGA CLIP SM LT-100 FDA Start: 09-21-2021 Creation, AV fistula SUTURE,LIGA CLIP SM LT-100 FDA Start: 09-21-2021 Creation, AV fistula SUTURE,LIGA CLIP MED LT200 FDA Start: 11-29-2021 Creation, AV fistula SUTURE,LIGA CLIP MED LT200 FDA Start: 11-29-2021 Creation, AV fistula SUTURE,LIGA CLIP MED LT200 FDA Start: 11-29-2021 Creation, AV fistula SUTURE,LIGA CLIP SM LT-100 FDA Start: 11-29-2021 Creation, AV fistula SUTURE,LIGA CLIP SM LT-100 FDA Start: 11-29-2021 Creation, AV fistula SUTURE,LIGA CLIP SM LT-100 FDA Start: 11-29-2021 Creation, AV fistula SUTURE,LIGA CLIP SM LT-100 FDA Start: 11-29-2021 Creation, AV fistula SUTURE,LIGA CLIP SM LT-100 FDA Start: 11-29-2021 Creation, AV fistula SUTURE,LIGA CLIP MED LT200 FDA Start: 09-21-2021 Creation, AV fistula SUTURE,LIGA CLIP MED LT200 FDA Start: 09-21-2021 Creation, AV fistula SUTURE,LIGA CLIP SM LT-100 FDA Start: 09-21-2021 Creation, AV fistula SUTURE,LIGA CLIP SM LT-100 FDA Start: 09-21-2021 Creation, AV fistula SUTURE,LIGA CLIP SM LT-100 FDA Start: 09-21-2021 Creation, AV fistula SUTURE,LIGA CLIP MED LT200 FDA Start: 11-29-2021 Creation, AV fistula SUTURE,LIGA CLIP MED LT200 FDA Start: 11-29-2021 Creation, AV fistula SUTURE,LIGA CLIP MED LT200 FDA Start: 11-29-2021 Creation, AV fistula SUTURE,LIGA CLIP SM LT-100 FDA Start: 11-29-2021 Creation, AV fistula SUTURE,LIGA CLIP SM LT-100 FDA Start: 11-29-2021 Creation, AV fistula SUTURE,LIGA CLIP SM LT-100 FDA Start: 11-29-2021 Creation, AV fistula SUTURE,LIGA CLIP SM LT-100 FDA Start: 11-29-2021 Creation, AV fistula SUTURE,LIGA CLIP SM LT-100 FDA Start: 11-29-2021 STENT,URETERAL PIGTAIL 6FRX24 FDA Start: 12-14-2018 STENT,URETERAL PIGTAIL 6FRX24 FDA Start: 12-14-2018 STENT,URETERAL PIGTAIL 6FRX24 FDA Start: 01-14-2020 STENT,URETERAL PIGTAIL 6FRX24 FDA Start: 01-14-2020 STENT,URETERAL PIGTAIL 6FRX24 FDA Start: 05-28-2020 STENT,URETERAL PIGTAIL 6FRX24 FDA Start: 05-28-2020 STENT,URETERAL PIGTAIL 6FRX24 FDA Start: 12-14-2018 STENT,URETERAL PIGTAIL 6FRX24 FDA Start: 12-14-2018 STENT,URETERAL PIGTAIL 6FRX24 FDA Start: 01-14-2020 STENT,URETERAL PIGTAIL 6FRX24 FDA Start: 01-14-2020 STENT,URETERAL PIGTAIL 6FRX24 FDA Start: 05-28-2020 STENT,URETERAL PIGTAIL 6FRX24 FDA Start: 05-28-2020 STENT,URETERAL PIGTAIL 6FRX24 FDA Start: 12-14-2018 STENT,URETERAL PIGTAIL 6FRX24 FDA Start: 12-14-2018 STENT,URETERAL PIGTAIL 6FRX24 FDA Start: 01-14-2020 STENT,URETERAL PIGTAIL 6FRX24 FDA Start: 01-14-2020 STENT,URETERAL PIGTAIL 6FRX24 FDA Start: 05-28-2020 STENT,URETERAL PIGTAIL 6FRX24 FDA Start: 05-28-2020 STENT,URETERAL PIGTAIL 6FRX24 FDA Start: 12-14-2018 STENT,URETERAL PIGTAIL 6FRX24 FDA Start: 12-14-2018 STENT,URETERAL PIGTAIL 6FRX24 FDA Start: 01-14-2020 STENT,URETERAL PIGTAIL 6FRX24 FDA Start: 01-14-2020 STENT,URETERAL PIGTAIL 6FRX24 FDA Start: 05-28-2020 STENT,URETERAL PIGTAIL 6FRX24 FDA Start: 05-28-2020 STENT,URETERAL PIGTAIL 6FRX24 FDA Start: 12-14-2018 STENT,URETERAL PIGTAIL 6FRX24 FDA Start: 12-14-2018 STENT,URETERAL PIGTAIL 6FRX24 FDA Start: 01-14-2020 STENT,URETERAL PIGTAIL 6FRX24 FDA Start: 01-14-2020 STENT,URETERAL PIGTAIL 6FRX24 FDA Start: 05-28-2020 STENT,URETERAL PIGTAIL 6FRX24 FDA Start: 05-28-2020 STENT,URETERAL PIGTAIL 6FRX24 FDA Start: 12-14-2018 STENT,URETERAL PIGTAIL 6FRX24 FDA Start: 12-14-2018 STENT,URETERAL PIGTAIL 6FRX24 FDA Start: 01-14-2020 STENT,URETERAL PIGTAIL 6FRX24 FDA Start: 01-14-2020 STENT,URETERAL PIGTAIL 6FRX24 FDA Start: 05-28-2020 STENT,URETERAL PIGTAIL 6FRX24 FDA Start: 05-28-2020 STENT,URETERAL PIGTAIL 6FRX24 FDA Start: 12-14-2018 STENT,URETERAL PIGTAIL 6FRX24 FDA Start: 12-14-2018 STENT,URETERAL PIGTAIL 6FRX24 FDA Start: 01-14-2020 STENT,URETERAL PIGTAIL 6FRX24 FDA Start: 01-14-2020 STENT,URETERAL PIGTAIL 6FRX24 FDA Start: 05-28-2020 STENT,URETERAL PIGTAIL 6FRX24 FDA Start: 05-28-2020 STENT,URETERAL PIGTAIL 6FRX24 FDA Start: 12-14-2018 STENT,URETERAL PIGTAIL 6FRX24 FDA Start: 12-14-2018 STENT,URETERAL PIGTAIL 6FRX24 FDA Start: 01-14-2020 STENT,URETERAL PIGTAIL 6FRX24 FDA Start: 01-14-2020 STENT,URETERAL PIGTAIL 6FRX24 FDA Start: 05-28-2020 STENT,URETERAL PIGTAIL 6FRX24 FDA Start: 05-28-2020 STENT,URETERAL PIGTAIL 6FRX24 FDA Start: 12-14-2018 STENT,URETERAL PIGTAIL 6FRX24 FDA Start: 12-14-2018 STENT,URETERAL PIGTAIL 6FRX24 FDA Start: 01-14-2020 STENT,URETERAL PIGTAIL 6FRX24 FDA Start: 01-14-2020 STENT,URETERAL PIGTAIL 6FRX24 FDA Start: 05-28-2020 STENT,URETERAL PIGTAIL 6FRX24 FDA Start: 05-28-2020 STENT,URETERAL PIGTAIL 6FRX24 FDA Start: 12-14-2018 STENT,URETERAL PIGTAIL 6FRX24 FDA Start: 12-14-2018 STENT,URETERAL PIGTAIL 6FRX24 FDA Start: 01-14-2020 STENT,URETERAL PIGTAIL 6FRX24 FDA Start: 01-14-2020 STENT,URETERAL PIGTAIL 6FRX24 FDA Start: 05-28-2020 STENT,URETERAL PIGTAIL 6FRX24 FDA Start: 05-28-2020 STENT,URETERAL PIGTAIL 6FRX24 FDA Start: 12-14-2018 STENT,URETERAL PIGTAIL 6FRX24 FDA Start: 12-14-2018 STENT,URETERAL PIGTAIL 6FRX24 FDA Start: 01-14-2020 STENT,URETERAL PIGTAIL 6FRX24 FDA Start: 01-14-2020 STENT,URETERAL PIGTAIL 6FRX24 FDA Start: 05-28-2020 STENT,URETERAL PIGTAIL 6FRX24 FDA Start: 05-28-2020 STENT,URETERAL PIGTAIL 6FRX24 FDA Start: 12-14-2018 STENT,URETERAL PIGTAIL 6FRX24 FDA Start: 12-14-2018 STENT,URETERAL PIGTAIL 6FRX24 FDA Start: 01-14-2020 STENT,URETERAL PIGTAIL 6FRX24 FDA Start: 01-14-2020 STENT,URETERAL PIGTAIL 6FRX24 FDA Start: 05-28-2020 STENT,URETERAL PIGTAIL 6FRX24 FDA Start: 05-28-2020 STENT,URETERAL PIGTAIL 6FRX24 FDA Start: 12-14-2018 STENT,URETERAL PIGTAIL 6FRX24 FDA Start: 12-14-2018 STENT,URETERAL PIGTAIL 6FRX24 FDA Start: 01-14-2020 STENT,URETERAL PIGTAIL 6FRX24 FDA Start: 01-14-2020 STENT,URETERAL PIGTAIL 6FRX24 FDA Start: 05-28-2020 STENT,URETERAL PIGTAIL 6FRX24 FDA Start: 05-28-2020 STENT,URETERAL PIGTAIL 6FRX24 FDA Start: 12-14-2018 STENT,URETERAL PIGTAIL 6FRX24 FDA Start: 12-14-2018 STENT,URETERAL PIGTAIL 6FRX24 FDA Start: 01-14-2020 STENT,URETERAL PIGTAIL 6FRX24 FDA Start: 01-14-2020 STENT,URETERAL PIGTAIL 6FRX24 FDA Start: 05-28-2020 STENT,URETERAL PIGTAIL 6FRX24 FDA Start: 05-28-2020 STENT,URETERAL PIGTAIL 6FRX24 FDA Start: 12-14-2018 STENT,URETERAL PIGTAIL 6FRX24 FDA Start: 12-14-2018 STENT,URETERAL PIGTAIL 6FRX24 FDA Start: 01-14-2020 STENT,URETERAL PIGTAIL 6FRX24 FDA Start: 01-14-2020 STENT,URETERAL PIGTAIL 6FRX24 FDA Start: 05-28-2020 STENT,URETERAL PIGTAIL 6FRX24 FDA Start: 05-28-2020 STENT,URETERAL PIGTAIL 6FRX24 FDA Start: 12-14-2018 STENT,URETERAL PIGTAIL 6FRX24 FDA Start: 12-14-2018 STENT,URETERAL PIGTAIL 6FRX24 FDA Start: 01-14-2020 STENT,URETERAL PIGTAIL 6FRX24 FDA Start: 01-14-2020 STENT,URETERAL PIGTAIL 6FRX24 FDA Start: 05-28-2020 STENT,URETERAL PIGTAIL 6FRX24 FDA Start: 05-28-2020 STENT,URETERAL PIGTAIL 6FRX24 FDA Start: 12-14-2018 STENT,URETERAL PIGTAIL 6FRX24 FDA Start: 12-14-2018 STENT,URETERAL PIGTAIL 6FRX24 FDA Start: 01-14-2020 STENT,URETERAL PIGTAIL 6FRX24 FDA Start: 01-14-2020 STENT,URETERAL PIGTAIL 6FRX24 FDA Start: 05-28-2020 STENT,URETERAL PIGTAIL 6FRX24 FDA Start: 05-28-2020 STENT,URETERAL PIGTAIL 6FRX24 FDA Start: 12-14-2018 STENT,URETERAL PIGTAIL 6FRX24 FDA Start: 12-14-2018 STENT,URETERAL PIGTAIL 6FRX24 FDA Start: 01-14-2020 STENT,URETERAL PIGTAIL 6FRX24 FDA Start: 01-14-2020 STENT,URETERAL PIGTAIL 6FRX24 FDA Start: 05-28-2020 STENT,URETERAL PIGTAIL 6FRX24 FDA Start: 05-28-2020 STENT,URETERAL PIGTAIL 6FRX24 FDA Start: 12-14-2018 STENT,URETERAL PIGTAIL 6FRX24 FDA Start: 12-14-2018 STENT,URETERAL PIGTAIL 6FRX24 FDA Start: 01-14-2020 STENT,URETERAL PIGTAIL 6FRX24 FDA Start: 01-14-2020 STENT,URETERAL PIGTAIL 6FRX24 FDA Start: 05-28-2020 STENT,URETERAL PIGTAIL 6FRX24 FDA Start: 05-28-2020 STENT,URETERAL PIGTAIL 6FRX24 FDA Start: 12-14-2018 STENT,URETERAL PIGTAIL 6FRX24 FDA Start: 12-14-2018 STENT,URETERAL PIGTAIL 6FRX24 FDA Start: 01-14-2020 STENT,URETERAL PIGTAIL 6FRX24 FDA Start: 01-14-2020 STENT,URETERAL PIGTAIL 6FRX24 FDA Start: 05-28-2020 STENT,URETERAL PIGTAIL 6FRX24 FDA Start: 05-28-2020 STENT,URETERAL PIGTAIL 6FRX24 FDA Start: 12-14-2018 STENT,URETERAL PIGTAIL 6FRX24 FDA Start: 12-14-2018 STENT,URETERAL PIGTAIL 6FRX24 FDA Start: 01-14-2020 STENT,URETERAL PIGTAIL 6FRX24 FDA Start: 01-14-2020 STENT,URETERAL PIGTAIL 6FRX24 FDA Start: 05-28-2020 STENT,URETERAL PIGTAIL 6FRX24 FDA Start: 05-28-2020 STENT,URETERAL PIGTAIL 6FRX24 FDA Start: 12-14-2018 STENT,URETERAL PIGTAIL 6FRX24 FDA Start: 12-14-2018 STENT,URETERAL PIGTAIL 6FRX24 FDA Start: 01-14-2020 STENT,URETERAL PIGTAIL 6FRX24 FDA Start: 01-14-2020 STENT,URETERAL PIGTAIL 6FRX24 FDA Start: 05-28-2020 STENT,URETERAL PIGTAIL 6FRX24 FDA Start: 05-28-2020 STENT,URETERAL PIGTAIL 6FRX24 FDA Start: 12-14-2018 STENT,URETERAL PIGTAIL 6FRX24 FDA Start: 12-14-2018 STENT,URETERAL PIGTAIL 6FRX24 FDA Start: 01-14-2020 STENT,URETERAL PIGTAIL 6FRX24 FDA Start: 01-14-2020 STENT,URETERAL PIGTAIL 6FRX24 FDA Start: 05-28-2020 STENT,URETERAL PIGTAIL 6FRX24 FDA Start: 05-28-2020 STENT,URETERAL PIGTAIL 6FRX24 FDA Start: 12-14-2018 STENT,URETERAL PIGTAIL 6FRX24 FDA Start: 12-14-2018 STENT,URETERAL PIGTAIL 6FRX24 FDA Start: 01-14-2020 STENT,URETERAL PIGTAIL 6FRX24 FDA Start: 01-14-2020 STENT,URETERAL PIGTAIL 6FRX24 FDA Start: 05-28-2020 STENT,URETERAL PIGTAIL 6FRX24 FDA Start: 05-28-2020 STENT,URETERAL PIGTAIL 6FRX24 FDA Start: 12-14-2018 STENT,URETERAL PIGTAIL 6FRX24 FDA Start: 12-14-2018 STENT,URETERAL PIGTAIL 6FRX24 FDA Start: 01-14-2020 STENT,URETERAL PIGTAIL 6FRX24 FDA Start: 01-14-2020 STENT,URETERAL PIGTAIL 6FRX24 FDA Start: 05-28-2020 STENT,URETERAL PIGTAIL 6FRX24 FDA Start: 05-28-2020 STENT,URETERAL PIGTAIL 6FRX24 FDA Start: 12-14-2018 STENT,URETERAL PIGTAIL 6FRX24 FDA Start: 12-14-2018 STENT,URETERAL PIGTAIL 6FRX24 FDA Start: 01-14-2020 STENT,URETERAL PIGTAIL 6FRX24 FDA Start: 01-14-2020 STENT,URETERAL PIGTAIL 6FRX24 FDA Start: 05-28-2020 STENT,URETERAL PIGTAIL 6FRX24 FDA Start: 05-28-2020 STENT,URETERAL PIGTAIL 6FRX24 FDA Start: 12-14-2018 STENT,URETERAL PIGTAIL 6FRX24 FDA Start: 12-14-2018 STENT,URETERAL PIGTAIL 6FRX24 FDA Start: 01-14-2020 STENT,URETERAL PIGTAIL 6FRX24 FDA Start: 01-14-2020 STENT,URETERAL PIGTAIL 6FRX24 FDA Start: 05-28-2020 STENT,URETERAL PIGTAIL 6FRX24 FDA Start: 05-28-2020 STENT,URETERAL PIGTAIL 6FRX24 FDA Start: 12-14-2018 STENT,URETERAL PIGTAIL 6FRX24 FDA Start: 12-14-2018 STENT,URETERAL PIGTAIL 6FRX24 FDA Start: 01-14-2020 STENT,URETERAL PIGTAIL 6FRX24 FDA Start: 01-14-2020 STENT,URETERAL PIGTAIL 6FRX24 FDA Start: 05-28-2020 STENT,URETERAL PIGTAIL 6FRX24 FDA Start: 05-28-2020 STENT,URETERAL PIGTAIL 6FRX24 FDA Start: 12-14-2018 STENT,URETERAL PIGTAIL 6FRX24 FDA Start: 12-14-2018 STENT,URETERAL PIGTAIL 6FRX24 FDA Start: 01-14-2020 STENT,URETERAL PIGTAIL 6FRX24 FDA Start: 01-14-2020 STENT,URETERAL PIGTAIL 6FRX24 FDA Start: 05-28-2020 STENT,URETERAL PIGTAIL 6FRX24 FDA Start: 05-28-2020 STENT,URETERAL PIGTAIL 6FRX24 FDA Start: 12-14-2018 STENT,URETERAL PIGTAIL 6FRX24 FDA Start: 12-14-2018 STENT,URETERAL PIGTAIL 6FRX24 FDA Start: 01-14-2020 STENT,URETERAL PIGTAIL 6FRX24 FDA Start: 01-14-2020 STENT,URETERAL PIGTAIL 6FRX24 FDA Start: 05-28-2020 STENT,URETERAL PIGTAIL 6FRX24 FDA Start: 05-28-2020 STENT,URETERAL PIGTAIL 6FRX24 FDA Start: 12-14-2018 STENT,URETERAL PIGTAIL 6FRX24 FDA Start: 12-14-2018 STENT,URETERAL PIGTAIL 6FRX24 FDA Start: 01-14-2020 STENT,URETERAL PIGTAIL 6FRX24 FDA Start: 01-14-2020 STENT,URETERAL PIGTAIL 6FRX24 FDA Start: 05-28-2020 STENT,URETERAL PIGTAIL 6FRX24 FDA Start: 05-28-2020 STENT,URETERAL PIGTAIL 6FRX24 FDA Start: 12-14-2018 STENT,URETERAL PIGTAIL 6FRX24 FDA Start: 12-14-2018 STENT,URETERAL PIGTAIL 6FRX24 FDA Start: 01-14-2020 STENT,URETERAL PIGTAIL 6FRX24 FDA Start: 01-14-2020 STENT,URETERAL PIGTAIL 6FRX24 FDA Start: 05-28-2020 STENT,URETERAL PIGTAIL 6FRX24 FDA Start: 05-28-2020 STENT,URETERAL PIGTAIL 6FRX24 FDA Start: 12-14-2018 STENT,URETERAL PIGTAIL 6FRX24 FDA Start: 12-14-2018 STENT,URETERAL PIGTAIL 6FRX24 FDA Start: 01-14-2020 STENT,URETERAL PIGTAIL 6FRX24 FDA Start: 01-14-2020 STENT,URETERAL PIGTAIL 6FRX24 FDA Start: 05-28-2020 STENT,URETERAL PIGTAIL 6FRX24 FDA Start: 05-28-2020 STENT,URETERAL PIGTAIL 6FRX24 FDA Start: 12-14-2018 STENT,URETERAL PIGTAIL 6FRX24 FDA Start: 12-14-2018 STENT,URETERAL PIGTAIL 6FRX24 FDA Start: 01-14-2020 STENT,URETERAL PIGTAIL 6FRX24 FDA Start: 01-14-2020 STENT,URETERAL PIGTAIL 6FRX24 FDA Start: 05-28-2020 STENT,URETERAL PIGTAIL 6FRX24 FDA Start: 05-28-2020 FDA Start: 12-14-2018 FDA Start: 12-14-2018 FDA Start: 01-14-2020 FDA Start: 01-14-2020 FDA Start: 05-28-2020 FDA Start: 05-28-2020 Set 6fr .038in 2 Pigtail Curve Filiform Black Stainless Steel Vinyl - [id number] Start: 10-11-2023 FDA Start: 12-14-2018 FDA Start: 12-14-2018 FDA Start: 01-14-2020 FDA Start: 01-14-2020 FDA Start: 05-28-2020 FDA Start: 05-28-2020 FDA Start: 12-14-2018 FDA Start: 12-14-2018 FDA Start: 01-14-2020 FDA Start: 01-14-2020 FDA Start: 05-28-2020 FDA Start: 05-28-2020 FDA Start: 12-14-2018 FDA Start: 12-14-2018 FDA Start: 01-14-2020 FDA Start: 01-14-2020 FDA Start: 05-28-2020 FDA Start: 05-28-2020 FDA Start: 12-14-2018 FDA Start: 12-14-2018 FDA Start: 01-14-2020 FDA Start: 01-14-2020 FDA Start: 05-28-2020 FDA Start: 05-28-2020 FDA Start: 12-14-2018 FDA Start: 12-14-2018 FDA Start: 01-14-2020 FDA Start: 01-14-2020 FDA Start: 05-28-2020 FDA Start: 05-28-2020 Set 6fr .038in 2 Pigtail Curve Filiform Black Stainless Steel Vinyl - [id number] Start: 10-11-2023 STENT,URETERAL PIGTAIL 6FRX24 FDA Start: 12-14-2018 STENT,URETERAL PIGTAIL 6FRX24 FDA Start: 12-14-2018 STENT,URETERAL PIGTAIL 6FRX24 FDA Start: 01-14-2020 STENT,URETERAL PIGTAIL 6FRX24 FDA Start: 01-14-2020 STENT,URETERAL PIGTAIL 6FRX24 FDA Start: 05-28-2020 STENT,URETERAL PIGTAIL 6FRX24 FDA Start: 05-28-2020 Set 6fr .038in 2 Pigtail Curve Filiform Black Stainless Steel Vinyl - [id number] Start: 02-07-2024 Set 6fr .038in 2 Pigtail Curve Filiform Black Stainless Steel Vinyl - [id number] Start: 02-07-2024 STENT,URETERAL PIGTAIL 6FRX24 FDA Start: 12-14-2018 STENT,URETERAL PIGTAIL 6FRX24 FDA Start: 12-14-2018 STENT,URETERAL PIGTAIL 6FRX24 FDA Start: 01-14-2020 STENT,URETERAL PIGTAIL 6FRX24 FDA Start: 01-14-2020 STENT,URETERAL PIGTAIL 6FRX24 FDA Start: 05-28-2020 STENT,URETERAL PIGTAIL 6FRX24 FDA Start: 05-28-2020 STENT,URETERAL PIGTAIL 6FRX24 FDA Start: 12-14-2018 STENT,URETERAL PIGTAIL 6FRX24 FDA Start: 12-14-2018 STENT,URETERAL PIGTAIL 6FRX24 FDA Start: 01-14-2020 STENT,URETERAL PIGTAIL 6FRX24 FDA Start: 01-14-2020 STENT,URETERAL PIGTAIL 6FRX24 FDA Start: 05-28-2020 STENT,URETERAL PIGTAIL 6FRX24 FDA Start: 05-28-2020 STENT,URETERAL PIGTAIL 6FRX24 FDA Start: 12-14-2018 STENT,URETERAL PIGTAIL 6FRX24 FDA Start: 12-14-2018 STENT,URETERAL PIGTAIL 6FRX24 FDA Start: 01-14-2020 STENT,URETERAL PIGTAIL 6FRX24 FDA Start: 01-14-2020 STENT,URETERAL PIGTAIL 6FRX24 FDA Start: 05-28-2020 STENT,URETERAL PIGTAIL 6FRX24 FDA Start: 05-28-2020 STENT,URETERAL PIGTAIL 6FRX24 FDA Start: 12-14-2018 STENT,URETERAL PIGTAIL 6FRX24 FDA Start: 12-14-2018 STENT,URETERAL PIGTAIL 6FRX24 FDA Start: 01-14-2020 STENT,URETERAL PIGTAIL 6FRX24 FDA Start: 01-14-2020 STENT,URETERAL PIGTAIL 6FRX24 FDA Start: 05-28-2020 STENT,URETERAL PIGTAIL 6FRX24 FDA Start: 05-28-2020 STENT,URETERAL PIGTAIL 6FRX24 FDA Start: 12-14-2018 STENT,URETERAL PIGTAIL 6FRX24 FDA Start: 12-14-2018 STENT,URETERAL PIGTAIL 6FRX24 FDA Start: 01-14-2020 STENT,URETERAL PIGTAIL 6FRX24 FDA Start: 01-14-2020 STENT,URETERAL PIGTAIL 6FRX24 FDA Start: 05-28-2020 STENT,URETERAL PIGTAIL 6FRX24 FDA Start: 05-28-2020 STENT,URETERAL PIGTAIL 6FRX24 FDA Start: 12-14-2018 STENT,URETERAL PIGTAIL 6FRX24 FDA Start: 12-14-2018 STENT,URETERAL PIGTAIL 6FRX24 FDA Start: 01-14-2020 STENT,URETERAL PIGTAIL 6FRX24 FDA Start: 01-14-2020 STENT,URETERAL PIGTAIL 6FRX24 FDA Start: 05-28-2020 STENT,URETERAL PIGTAIL 6FRX24 FDA Start: 05-28-2020 STENT,URETERAL PIGTAIL 6FRX24 FDA Start: 12-14-2018 STENT,URETERAL PIGTAIL 6FRX24 FDA Start: 12-14-2018 STENT,URETERAL PIGTAIL 6FRX24 FDA Start: 01-14-2020 STENT,URETERAL PIGTAIL 6FRX24 FDA Start: 01-14-2020 STENT,URETERAL PIGTAIL 6FRX24 FDA Start: 05-28-2020 STENT,URETERAL PIGTAIL 6FRX24 FDA Start: 05-28-2020 Goals Date Patient Goal Desired Activity /State Personal health goal Functional Status Date Assessment Result Facility 01-19-2025 Are you deaf, or do you have serious difficulty hearing No 01/19/2025 1:25 PM Soumya Coppola RN No [facility] 01-19-2025 Are you blind, or do you have serious difficulty seeing, even when wearing glasses No 01/19/2025 1:25 PM Soumya Coppola RN No [facility] 01-19-2025 Do you have serious difficulty walking or climbing stairs No 01/19/2025 1:25 PM Soumya Coppola RN [facility] 01-19-2025 Do you have difficul ty dressing or bathing No 01/19/2025 1:25 PM Soumya Coppola RN No [facility] 01-19-2025 Because of a physica l, mental, or emotional condition, do you have difficulty doing errands alone such as visiting a physician's office or shopping No 01/19/2025 1:25 PM Soumya Coppola RN No [facility] 12-06-2024 Are you deaf, or do you have serious difficulty hearing No 12/06/2024 3:34 PM Joyce Quach RN No [facility] 12-06-2024 Are you blind, or do you have serious difficulty seeing, even when wearing glasses No 12/06/2024 3:34 PM Joyce Quach RN No [facility] 12-06-2024 Do you have serious difficulty walking or climbing stairs No 12/06/2024 3:34 PM Joyce Quach RN No [facility] 12-06-2024 Do you have difficul ty dressing or bathing No 12/06/2024 3:34 PM Joyce Quach RN No [facility] 12-06-2024 Because of a physica l, mental, or emotional condition, do you have difficulty doing errands alone such as visiting a physician's office or shopping No 12/06/2024 3:34 PM Joyce Quach RN No [facility] 02-17-2024 Functional status Up ad javier;Bath room Privilege [facility] Work Phone: 11-13-2023 Functional status Standby Assist [facility] Work Phone: 11-12-2023 Functional status Bathroom Privilege [facility] Work Phone: 09-22-2023 Functional status Independent [facility] Work Phone: 09-21-2023 Functional status Ambulates [facility] Work Phone: 08-07-2023 Functional status Ambulates;Up ad javier [facility] Work Phone: 08-06-2023 Functional status None [facility] Work Phone: 08-01-2022 Functional status Ambulates [facility] Work Phone: 12-30-2021 Functional status Ambulates [facility] Work Phone: Mental Status Date Assessment Result Facility 01-19-2025 Because of a physica l, mental, or emotional condition, do you have serious difficulty concentrating, remembering, or making decisions No 01/19/2025 1:25 PM Soumya Coppola RN No [facility] 12-06-2024 Because of a physica l, mental, or emotional condition, do you have serious difficulty concentrating, remembering, or making decisions No 12/06/2024 3:34 PM Joyce Quach RN No [facility] 02-17-2024 Cognitive function Voice/Name [facility] Work Phone: 11-16-2023 Cognitive function Level Of Cons ciousness Awake;Alert;Appropriate;Fol lows Commands [facility] Work Phone: 11-13-2023 Cognitive function Voice/Name [facility] Work Phone: 11-10-2023 Cognitive function Awake;Alert;A ppropriate;Fol lows Commands [facility] Work Phone: 10-09-2023 Cognitive function Awake;Alert;A ppropriate;Fol lows Commands [facility] Work Phone: 09-21-2023 Cognitive function Voice/Name [facility] Work Phone: 09-19-2023 Cognitive function Level Of Cons ciousness Awake;Alert;Appropriate;Fol lows Commands [facility] Work Phone: 08-07-2023 Cognitive function Voice/Name [facility] Work Phone: 06-08-2023 Cognitive function Level Of Cons ciousness Awake [facility] Work Phone: 06-07-2023 Cognitive function Voice/Name [facility] Work Phone: 06-06-2023 Cognitive function Voice/Name [facility] Work Phone: 06-05-2023 Cognitive function Voice/Name [facility] Work Phone: 05-21-2023 Cognitive function Voice/Name [facility] Work Phone: 05-18-2023 Cognitive function Voice/Name [facility] Work Phone: 05-17-2023 Cognitive function Voice/Name [facility] Work Phone: 05-16-2023 Cognitive function Voice/Name [facility] Work Phone: 01-24-2023 Cognitive function Voice/Name [facility] Work Phone: 08-01-2022 Cognitive function Voice/Name [facility] Work Phone: 07-28-2022 Cognitive function Voice/Name [facility] Work Phone: 07-28-2022 Cognitive function Patient Jordyn issa Person;Place;Time [facility] Work Phone: 12-30-2021 Cognitive function Voice/Name [facility] Work Phone: 11-29-2021 Cognitive function Voice/Name [facility] Work Phone: Clinical Notes 08-30-2015 to 07-08-2025 Telephone Encounter - Corina Felix APRN.[facility] - 07/08/2025 9:36 AM EDTTelephone Encounter - Corina Felix APRN.MEDIA TECHNICIAN - 07/08/2025 9:36 AM EDT Note Date & Type Note Facility 07-08-2025 Telephone encount er Note Called and spoke with patient, contacted IR exchange arranged for 1pm tomorrow. Order placed Offered visit for flushing and re securing vs KUB today, she declined due to transportation issues and her daughter can flush and secured at home. She is aware of symptoms to watch for, including pain, fever >101 or chills - she is aware to proceed to ED She is currently on Cipro Thanks Corina Felix APRN.CAROLYNE [facility] 07-08-2025 Miscellaneous Notes Formattin g of this note might be different from the original. Called and spoke with patient, contacted IR exchange arranged for 1pm tomorrow. Order placed Offered visit for flushing and re securing vs KUB today, she declined due to transportation issues and her daughter can flush and secured at home. She is aware of symptoms to watch for, including pain, fever >101 or chills - she is aware to proceed to ED She is currently on Cipro Thanks Corina Felix APRN.CAROLYNE Pt calling sts she feels terrible, L tube is out she is being treated for UTI and just doesn't feel good. Please advise patient. Rosio Archer documented in this encounter [facility] 07-08-2025 Telephone encount er Note Pt calling sts she feels terrible, L tube is out she is being treated for UTI and just doesn't feel good. Please advise patient. Rosio Archer [facility] 07-08-2025 Telephone encount er Note I called patient and discussed recommendation for IR exchange on L side if unable to get into IR today will have her go to ED. I called radiology and left VM to call back, if they do, please me know so I can talk to them Thanks Corina Felix APRN.CAROLYNE [facility] Work Phone: 07-08-2025 Miscellaneous Notes Formattin g of this note might be different from the original. I called patient and discussed recommendation for IR exchange on L side if unable to get into IR today will have her go to ED. I called radiology and left VM to call back, if they do, please me know so I can talk to them Thanks Corina Felix APRN.CNP documented in this encounter [facility] 03-03-2025 Evaluation note Diagnosis Onset Date Resolution AV fistula acute March 03 10:51am [facility] Work Phone: 1(859) 682-589203-11-2025 [facility]03-11-2025 History of Present illness Narrative* Corina Ruffin APRN.CNP - 01/27/2025 3:18 PM EDT KUB reviewed. Left PNT appears to be in correct positioning. Educated on s/s of malpositioned PNT and of when to go to the ER. Pt verbalized understanding. * Corina Ruffin APRN.CNP - 01/27/2025 8:49 AM EDT Images from the original note were not included. [facility] [place] [facility] [place] [facility] [address] PATIENT NAME: Todd Delong DATE OF : 1950 TODAY'S DATE: 01/27/2025 CHIEF COMPLAINT: Patient presents with: Follow Up: Pt says she has pulled out left tube in back Assessment & Plan: Assessment & Plan Nephrostomy tube bleed (HCC) - no CVA tenderness - Flushed Left PNT without difficulty or pain - Left PNT draining yellow. Right PNT draining clear yellow. - will check KUB for placement. If malpositioned will set up with IR for exchange. - if in correct positioning keep exchange as scheduled for February 23. Advised patient that if any worsening symptoms such as fever >=100.4, intractable nausea or vomiting, uncontrolled pain, or inability to urinate,CVA tenderness, decreased urinary output to call the office and/or proceed to the nearest emergency department. Follow Up: Keep follow up with Dr. Antonio 03/02/2025 HPI: Ms. Delong is a 74 year old female who presents to the office regarding Left PNT hematuriua Records have been reviewed. States that yesterday left PNT was pulled on a Rolator. Noticed pink hematuria afterwards. Denies any pain. Has self urinated scant amounts since left pnt was pulled. Hematuria has improved this AM. It is now draining yellow urine. Urology HX: Known to Dr. Antonio. Previously maintained on routine stent exchanges, however, stents alone were not adequately draining her kidneys. 09/06/2024 for urosepsis 2/2 nephrostomy tube dysfunction. 09/29/2024-Bilateral Neph tube exchange- upsized for new 10F 01/12/2025: Bilateral Neph tube exchange- Review of symptoms All pertinent positives and negatives per HPI as stated above. 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 FAXED for copy Renal failure NO DIALYSIS FOR [address] MILLER MANAGES-- WENT FOR 2 YEARS REMAINS TO HAVE FISTULA IN LEFT UPPER ARM Thyroid disease PAST SURGICAL HISTORY Procedure Laterality Date CRNL RELAXING INC CORRJ INDUCED ASTIGMATISM Right 08/11/2015 LRI (Corneal Relaxing Incision) CRNL RELAXING INC CORRJ INDUCED ASTIGMATISM Left 09/09/2015 LRI (Corneal Relaxing Incision) CYSTOSCOPY with ureteral stents FISTULA Left LEFT UPPER ARM NOT BEING USED DR MILLER IS RENAL MD LOOP RECORDER SHUT OFF AT THIS TIME/ used to see Dr. 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 LX REMOVAL RENAL [place] NEPHROSTOMY [place]UBE [place] 2022 PAST SURGICAL HISTORY OF gallbladder PAST SURGICAL HISTORY OF 11/19/1983 radiation PAST SURGICAL HISTORY OF 12/05/2024 Left neph tube replaced XCAPSL CTRC RMVL INSJ IO LENS PROSTH W/O ECP Right 08/11/2015 Cataract Extraction with Femtosecond Laser (LenSx) XCAPSL CTRC RMVL INSJ IO LENS PROSTH W/O ECP Left 09/09/2015 Cataract Extraction with PC IOL ALLERGIES Allergen Reactions Methylprednisolone Other: See Comments Bactrim [Sulfametho* Shortness of Breath Pravastatin Anaphylaxis Prednisone Unknown Only allergic to Methylprednisone Jemzppl-Kqv-Otj Red* Anaphylaxis Medications Current Outpatient Medications Medication Instructions albuterol HFA (VENTOLIN HFA) 90 mcg/actuation inhaler 2 Puffs, EVERY 4 HOURS NEEDED amLODIPine (NORVASC) 2.5 mg, EVERY MORNING ipratropium bromide (ATROVENT) 42 mcg (0.06 %) nasal spray 2 Sprays, EVERY MORNING levothyroxine (SYNTHROID) 25 mcg tablet 1 tablet, DAILY BEFORE BREAKFAST pantoprazole DR (PROTONIX) 40 mg, EVERY MORNING potassium chloride ER (KLOR-CON) 20 mEq tablet 20 mEq, EVERY MORNING sodium chloride 0.9 %, flush, (BD POSIFLUSH) syringe 10 mL, OTHER, DAILY Urinary Bag (BARD URINARY DRAINAGE SYSTEM) misc 2 Bags, Miscell. (Med.Supl.;Non- Drugs), NEEDED Physical Exam Constitutional: In no acute distress. Well appearing. Genitourinary: Right PNT draining yellow urine. Left PNT draining yellow urine without bright red hematuria. No bilateral CVA/suprapubic tenderness. Imaging: CT - CT ABD/PEL WO IVCON Result Date: 12/05/2024 IMPRESSION: 1. Severe left-sided hydroureteronephrosis. 2. Right-sided percutaneous nephrostomy tube with no hydronephrosis. 3. Colonic diverticulosis. Application Integration Engineer: LADARIUS Transcribe Date/Time: Dec 05 2024 4:36A Dictated by : JOSE ANTONIO FRIAS MD This examination was interpreted and the report reviewed and electronically signed by: JOSE ANTONIO FRIAS MD on Dec 05 2024 4:57AM EST No results found. An electronic signature was used to authenticate this note. Please note that portions of this chart were dictated using [employer] electronic voice recognition software. It is possible that typos and/or omissions and/or substitutions of words and/or phrases may exist, which may alter the intended meaning of the dictating provider. Corina Ruffin APRN [facility] [place] [facility] History of Present illness Narrative* Marlon Guzman RT(R) - 01/27/2025 9:30 AM EDT Radiology Service Progress Note PATIENT NAME: Todd Delong DATE OF SERVICE: January 27, 2025 TIME: 9:42 AM PATIENT IDENTITY VERIFICATION COMPLETED USING TWO (2) IDENTIFIERS: Name and Date of confirmedby patient verbally and Name and Date of confirmed by identification band. FALL SCREENING: Has the patient had 2 falls in the last year or 1 fall with injury or currently using an Ambulatory Assistive Device (Walker, Cane, Wheelchair, Crutches, etc.)? No PATIENT GENDER DATA: Assigned female at . status: : No status:NO. PATIENT RELEVANT IMPLANT DATA REVIEWED: Not Applicable PATIENT PRESENTS WITH AN IMPLANTABLE OR ATTACHED MOLD STACKER: No RADIOLOGY DEPARTMENT: General X-ray: Exam(s) Completed: Abdomen X-Ray: Abdomen PERIPHERAL IV DATA: Not applicable SIGNED BY: RT Bienvenido(R) January 27, 2025 9:42 AM * Marlon Guzman RT(R) - 01/27/2025 9:30 AM EDT Radiology Service Progress Note PATIENT NAME: Todd Delong DATE OF SERVICE: January 27, 2025 TIME: 9:43 AM PATIENT IDENTITY VERIFICATION COMPLETED USING TWO (2) IDENTIFIERS: Name and Date of confirmedby patient verbally and Name and Date of confirmed by identification band. FALL SCREENING: Has the patient had 2 falls in the last year or 1 fall with injury or currently using an Ambulatory Assistive Device (Walker, Cane, Wheelchair, Crutches, etc.)? No PATIENT GENDER DATA: Assigned female at . status: : No status:NO. PATIENT RELEVANT IMPLANT DATA REVIEWED: Not Applicable PATIENT PRESENTS WITH AN IMPLANTABLE OR ATTACHED MOLD STACKER: No RADIOLOGY DEPARTMENT: General X-ray: Exam(s) Completed: Abdomen X-Ray: Abdomen PERIPHERAL IV DATA: Not applicable SIGNED BY: RT Bienvenido(R) January 27, 2025 9:43 AM [facility] 01-27-2025 [facility]03-11-2025 [facility]03-10-2025 [facility]03-10-2025 History of Present illness Narrative* Renetta Stiles RN - 01/26/2025 3:47 PM EDT Patient reports that she snagged her L nephrostomy tube on a rollator and felt like it pulled. Patient worried that it may have dislodged. Had not spoken to urology office. Urine is pink to light carpio tinged. No new pain at site per patient. This RN spoke with Kiya in Dr. Antonio' office and they plan to order imaging to check for patient. Kiya states that she will contact patient when orders are placed. documented in this [facility]25 [facility] 01-19-2025 [facility]03-02-2025 [facility]03-01-2025 [facility]02-28-2025 [facility]02-28-2025 [facility]02-27-2025 [facility]02-26-2025 NoteHNO ID: [id number] Author: LOUIE DELATORRE APRN.CNP Service: Hospital Medicine Author Type: Nurse Practitioner Type: Progress Notes Filed: 01/14/2025 13:00 Note Text: .[facility]02-26-2025 [facility]02-25-2025 [facility]02-25-2025 Telephone encounter Note* Telephone Encounter - Rosio Archer - 01/13/2025 3:30 PM EST Unable to hear PT message. Requested they call the office. Rosio Archer [facility]02-25-2025 Miscellaneous Notes* Telephone Encounter - Gianni, Rosio - 01/13/2025 3:30 PM EST Unable to hear PT message. Requested they call the office. Rosiodeisi Archer documented in [facility]02-[facility]-2025 BzaoAGDR-DSG-2 (AGENT OF COVID-19) RNA: Not detected INFLUENZA A RNA: Not detected INFLUENZA B RNA: Not detected RESPIRATORY SYNCYTIAL VIRUS (RSV) RNA: Not detectedVeterans Affairs Medical CenterComment on above:Performed By: #### [id number] ####[facility] LABORATORYCLIA [id number] [address] OF [id number] [facility]02-03-2025 History of Present illness Narrative* Jin Antonio MD - 12/22/2024 9:08 AM EST ESTABLISHED PATIENT OFFICE VISIT The patient is here for follow-up of bilateral ureteral obstruction. She is tolerating the nephrostomy tubes. Her energy levels continues to slowly improve. Her most recent renal function was . The creatinine was 1.77. LAB RESULTS Creatinine Date Value Ref Range Status 12/06/2024 1.77 (H) 0.51 - 0.95 mg/dL Final Comment: Patients receiving either N-Acetylcysteine (NAC) or Metamizole prior to venipuncture, may have falsely depressed results. No results found for: PSA, PSASC No results found for: UGLUCPOC, UBILIPOC, UKETONPOC, USGPOC, UHBPOC, UPHPOC, UPROPOC,UUROPOC, UNITPOC, UWBCPOC, UCOLPOC, UCLARPOC] ALLERGIES Allergen Reactions Methylprednisolone Other: See Comments Bactrim [Sulfametho* Shortness of Breath Pravastatin Anaphylaxis Prednisone Unknown Only allergic to Methylprednisone Pskutll-Aql-Qua Red* Anaphylaxis MEDICATIONS: sodium chloride 0.9 %, flush, (BD POSIFLUSH) syringe 10 mL once daily. Urinary Bag (BARD URINARY DRAINAGE SYSTEM) misc 2 Bags as needed. levothyroxine (SYNTHROID) 25 mcg tablet Take 1 tablet by mouth daily before breakfast. IPRATROPIUM BROMIDE NASAL Use 1 [place] in the nose every morning. pantoprazole DR (PROTONIX) 40 mg tablet Take 40 mg by mouth every morning. potassium chloride ER (KLOR-CON) 20 mEq tablet Take 20 mEq by mouth every morning. amLODIPine (NORVASC) 2.5 mg tablet Take 2.5 mg by mouth every morning. ALBUTEROL SULFATE (VENTOLIN INHALATION) Inhale 1 [place] as instructed every 4 hours as needed (wheezing/shortness of breath). REVIEW OF SYSTEMS GENERAL:no unintentional weight loss, malaise or fevers. NEUROLOGIC: pt is alert and oriented GASTROINTESTINAL: No nausea, vomiting, or diarrhea GENITOURINARY: See HPI MUSCULOSKELETAL: Negative for joint pain or swelling, back pain or muscle pain SKIN: Negative for lesions, rash, and itching. 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 FAXED for copy Renal failure NO DIALYSIS FOR [address] MILLER MANAGES-- WENT FOR 2 YEARS REMAINS TO HAVE FISTULA IN LEFT UPPER ARM Thyroid disease PAST SURGICAL HISTORY Procedure Laterality Date CRNL RELAXING INC CORRJ INDUCED ASTIGMATISM Right 08/11/2015 LRI (Corneal Relaxing Incision) CRNL RELAXING INC CORRJ INDUCED ASTIGMATISM Left 09/09/2015 LRI (Corneal Relaxing Incision) CYSTOSCOPY with ureteral stents FISTULA Left LEFT UPPER ARM NOT BEING USED DR MILLER IS RENAL MD LOOP RECORDER SHUT OFF AT THIS TIME/ used to see Dr. 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 LX REMOVAL RENAL MASS NEPHROSTOMY TUBE [place] 2022 PAST SURGICAL HISTORY OF gallbladder PAST SURGICAL HISTORY OF 11/19/1983 radiation PAST SURGICAL HISTORY OF 12/05/2024 Left neph tube replaced XCAPSL CTRC RMVL INSJ IO LENS PROSTH W/O ECP Right 08/11/2015 Cataract Extraction with Femtosecond Laser (LenSx) XCAPSL CTRC RMVL INSJ IO LENS PROSTH W/O ECP Left 09/09/2015 Cataract Extraction with PC IOL FAMILY HISTORY Problem Relation Age of Onset Heart Father SOCIAL HISTORY Social History Tobacco Use Smoking status: Former Current packs/day: 1.00 Average packs/day: 1 pack/day for 17.1 years (17.1 ttl pk-yrs) Types: Cigarettes Start date: 2007 Quit date: 1967 Passive exposure: Never Smokeless tobacco: Never Vaping Use Vaping status: Never Used Substance Use Topics Alcohol use: Never Drug use: Not Currently PHYSICAL EXAMINATION General appearance: Well appearing, alert, in no acute distress, well-hydrated, well nourished Psych Alert and oriented to person, place and time Cardiac: no peripheral edema Pulmonary: normal respiratory effort ASSESSMENT/PLAN: 1. Hydronephrosis, unspecified hydronephrosis type [N13.30] - ICD9: 591, ICD10: N13.30 Continue bilateral nephrostomy tube exchanges every 6 weeks. I discussed the potential for placing stents and plugging the nephrostomy tubes to see how well they would function. She is not interestedin this. When we first met over a year ago, her ureteral stents were not adequately draining her kidneys. - UA DIP, URINE (POC) - IR NEPH TUBE CHANGE Jin Antonio MD documented [facility]25 NoteHNO ID: [id number] Author: JOYCE SOLORIO RN Service: Nursing Author Type: Registered Nurse Type: Nursing Progress Note Filed: 12/06/2024 16:40 Note Text: [facility] to [facility]12-20-2024 Telephone encounter Note* Telephone Encounter - Kiya Johnson OCCA - 11/07/2024 2:07 PM EST I contacted IR and they do not supply replacement nephrostomy bags. I informed pt that she could contact her insurance and ask if they would cover these supplies. Todd asked if she could order nephrostomy supplies on [employer]. While on the phone with the pt, I searched [employer] website and informed her that she could order supplies at that site. ELAINE Vizcarra [facility]12-20-2024 Miscellaneous Notes* Telephone Encounter - Kiya Johnson OCCA - 11/07/2024 2:07 PM EST I contacted IR and they do not supply replacement nephrostomy bags. I informed pt that she could contact her insurance and ask if they would cover these supplies. Todd asked if she could order nephrostomy supplies on Amazon. While on the phone with the pt, I searched [employer] website and informed her that she could order supplies at that site. ELAINE Vizcarra * Telephone Encounter - Kiya Johnson OCCA - 11/07/2024 11:47 AM EST Attempted to contact interventional radiology, no answer and was unable to leave a VM. Will try again later. ELAINE Vizcarra * Telephone Encounter - Kiya Johnson OCCA - 11/07/2024 11:21 AM EST Pt called stating that she has two nephrostomy tubes. From pinning the bags to her shirt, the bags are now leaking leaving her clothes wet. She would like to know how she can get new bags. She has already called [facility] and they do not carry them. ELAINE Vizcarra documented in this encounterFisher[facility]12-20-2024 Telephone encounter Note * Telephone Encounter - Kiya Johnson OCCA - 11/07/2024 11:47 AM EST Attempted to contact interventional radiology, no answer and was unable to leave a VM. Will try again later. ELAINE Vizcarra [facility]12-20-2024 Telephone encounter Note* Telephone Encounter - Kiya Johnson OCCA - 11/07/2024 11:21 AM EST Pt called stating that she has two nephrostomy tubes. From pinning the bags to her shirt, the bags are now leaking leaving her clothes wet. She would like to know how she can get new bags. She has already called [facility] and they do not carry them. ELAINE Vizcarra [facility]11-11-2024 Surgery Surgical operation note* Brief Op Note - Ghulam Rivera DO - 09/29/2024 11:17 AM EST BRIEF OPERATIVE / PROCEDURE NOTE LOG ID: [id number] SURGERY/PROCEDURE DATE: 09/29/2024 INCISION/PROCEDURE START TIME: 11:03 AM INCISION CLOSE/PROCEDURE END TIME: SURGEON(S)/PROCEDURALIST(S) AND GLASS BLOCK BENDER(S): Surgeons and Role: * Ghulam Rivera DO - Primary No Additional Staff SURGERY/PROCEDURE(S): Bilateral nephrostomy exchange ANESTHESIA: Local FINDINGS: Bilateral nephrostomy tubes exchanged and upsized for new 10F percutaneous nephrostomy tubes bilaterally. Please refer to full dictated radiology report for further details. ESTIMATED BLOOD LOSS: 0 ml SPECIMENS: None COMPLICATIONS: None PRE-OP/PRE-PROCEDURE DIAGNOSIS: Hydronephrosis POST-OP/POST-PROCEDURE DIAGNOSIS: Same as Preop SIGNATURE: Ghulam Rivera DO PATIENT NAME: Todd Delong DATE: September 29, 2024 TIME: 11:17 AM [facility] Work Phone: 1(268) 839-232911-11-2024 Surgical operation note* Brief Op Note - Ghulam Rivera DO - 09/29/2024 11:17 AM EST BRIEF OPERATIVE / PROCEDURE NOTE LOG ID: [id number] SURGERY/PROCEDURE DATE: 09/29/2024 INCISION/PROCEDURE START TIME: 11:03 AM INCISION CLOSE/PROCEDURE END TIME: SURGEON(S)/PROCEDURALIST(S) AND GLASS BLOCK BENDER(S): Surgeons and Role: * Ghulam Rivera DO - Primary No Additional Staff SURGERY/PROCEDURE(S): Bilateral nephrostomy exchange ANESTHESIA: Local FINDINGS: Bilateral nephrostomy tubes exchanged and upsized for new 10F percutaneous nephrostomy tubes bilaterally. Please refer to full dictated radiology report for further details. ESTIMATED BLOOD LOSS: 0 ml SPECIMENS: None COMPLICATIONS: None PRE-OP/PRE-PROCEDURE DIAGNOSIS: Hydronephrosis POST-OP/POST-PROCEDURE DIAGNOSIS: Same as Preop SIGNATURE: Ghulam Rivera DO PATIENT NAME: Todd Delong DATE: September 29, 2024 TIME: 11:17 AM documented in this encounterFisher-[facility]11-11-2024 Nurse Note* Mayra Ferguson RN - 09/29/2024 11:12 AM EST Procedure complete. Geronimo nephrostomy tube dressings new, D/I:Stafix dressing applied to both w/tegaderm coverings. Pt placed in a wheelchair and taken to outpt area via RN [facility]11-11-2024 Nurse Note* Mayra Ferguson RN - 09/29/2024 11:12 AM EST Procedure complete. Geronimo nephrostomy tube dressings new, D/I:Stafix dressing applied to both w/tegaderm coverings. Pt placed in a wheelchair and taken to outpt area via RN documented in this encounterFisher-[facility] Center10-20-2024 [facility] 09-01-2024 Telephone encounter Note* Telephone Encounter - Lesly Banuelos RN - 09/01/2024 8:47 AM EDT Yes, on 09/29. Lesly Banuelos RN [facility]10-14-2024 Miscellaneous Notes* Telephone Encounter - Lesly Banuelos RN - 09/01/2024 8:47 AM EDT Yes, on 09/29. Lesly Banuelos RN * Telephone Encounter - Sulema Poon APRN.CNP - 08/29/2024 12:07 PM EDT The following approved medication requests have been transmitted electronically. Requested Prescriptions Signed Prescriptions Disp Refills sodium chloride 0.9 %, flush, (BD POSIFLUSH) syringe 300 mL 11 Si mL once daily. Authorizing Provider: SULEMA POON APRN.CNP * Telephone Encounter - Lesly Banuelos RN - 08/29/2024 11:59 AM EDT Will send to Adele Poon to address. Lesly Banuelos RN * Telephone Encounter - Lesly Banuelos RN - 08/29/2024 11:56 AM EDT Left voice mail on IR's voicemail to see who provides the prescription for normal saline syringes for the patient's nephrostomy tubes. She states she is going to run out of them before she is able tofill them again. Please send call to me if they call back. Thanks, Lesly Banuelos RN documented in this encounterFisher[facility] Center10-11-2024 Telephone encounter Note * Telephone Encounter - Sulema Poon APRN.CNP - 08/29/2024 12:07 PM EDT The following approved medication requests have been transmitted electronically. Requested Prescriptions Signed Prescriptions Disp Refills sodium chloride 0.9 %, flush, (BD POSIFLUSH) syringe 300 mL 11 Si mL once daily. Authorizing Provider: SULEMA POON APRN.CNP [facility]10-11-2024 Telephone encounter Note* Telephone Encounter - Lesly Banuelos RN - 08/29/2024 11:59 AM EDT Will send to Adele Poon to address. Lesly Banuelos RN [facility]10-11-2024 Telephone encounter Note* Telephone Encounter - Lesly Banuelos RN - 08/29/2024 11:56 AM EDT Left voice mail on IR's voicemail to see who provides the prescription for normal saline syringes for the patient's nephrostomy tubes. She states she is going to run out of them before she is able tofill them again. Please send call to me if they call back. Thanks, Lesly Banuelos RN [facility]10-11-2024 History of Present illness Narrative* Jin Antonio MD - 08/29/2024 11:45 AM EDT ESTABLISHED PATIENT OFFICE VISIT F/u B hydronephrosis. She had some blood in the tubes after her stent removal and B neph tube exchange. One of the tubes had been pulled out. She now only has the neph tubes. (No stents) LAB RESULTS Creatinine Date Value Ref Range Status 06/19/2024 1.71 (H) 0.51 - 0.95 mg/dL Final Comment: Patients receiving either N-Acetylcysteine (NAC) or Metamizole prior to venipuncture, may have falsely depressed results. No results found for: PSA, PSASC No results found for: UGLUCPOC, UBILIPOC, UKETONPOC, USGPOC, UHBPOC, UPHPOC, UPROPOC,UUROPOC, UNITPOC, UWBCPOC, UCOLPOC, UCLARPOC] ALLERGIES Allergen Reactions Methylprednisolone Other: See Comments Bactrim [Sulfametho* Shortness of Breath Influenza Virus Vac* Unknown Pravastatin Intolerance Prednisone Unknown Sdgzgek-Mmk-Lei Red* Anaphylaxis MEDICATIONS: sodium chloride 0.9 %, flush, (BD POSIFLUSH) syringe 10 mL once daily. Urinary Bag (BARD URINARY DRAINAGE SYSTEM) misc 2 Bags as needed. levothyroxine (SYNTHROID) 25 mcg tablet Take 1 tablet by mouth daily before breakfast. IPRATROPIUM BROMIDE NASAL Use 1 [place] in the nose every morning. pantoprazole DR (PROTONIX) 40 mg tablet Take 40 mg by mouth every morning. potassium chloride ER (KLOR-CON) 20 mEq tablet Take 20 mEq by mouth every morning. amLODIPine (NORVASC) 2.5 mg tablet Take 2.5 mg by mouth every morning. ALBUTEROL SULFATE (VENTOLIN INHALATION) Inhale 1 [place] as instructed every 4 hours as needed (wheezing/shortness of breath). REVIEW OF SYSTEMS GENERAL:no unintentional weight loss, malaise or fevers. NEUROLOGIC: pt is alert and oriented GASTROINTESTINAL: No nausea, vomiting, or diarrhea GENITOURINARY: See HPI MUSCULOSKELETAL: Negative for joint pain or swelling, back pain or muscle pain SKIN: Negative for lesions, rash, and itching. 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 FAXED for copy Renal failure NO DIALYSIS FOR [address] MILLER MANAGES-- WENT FOR 2 YEARS REMAINS TO HAVE FISTULA IN LEFT UPPER ARM Thyroid disease PAST SURGICAL HISTORY Procedure Laterality Date CRNL RELAXING INC CORRJ INDUCED ASTIGMATISM Right 08/11/2015 LRI (Corneal Relaxing Incision) CRNL RELAXING INC CORRJ INDUCED ASTIGMATISM Left 09/09/2015 LRI (Corneal Relaxing Incision) CYSTOSCOPY with ureteral stents FISTULA Left LEFT UPPER ARM NOT BEING USED DR MILLER IS RENAL MD LOOP RECORDER SHUT OFF AT THIS TIME/ used to see Dr. 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 LX REMOVAL RENAL MASS NEPHROSTOMY TUBE (VT,[place]) 2022 PAST SURGICAL HISTORY OF gallbladder PAST SURGICAL HISTORY OF 11/19/1983 radiation XCAPSL CTRC RMVL INSJ IO LENS PROSTH W/O ECP Right 08/11/2015 Cataract Extraction with Femtosecond Laser (LenSx) XCAPSL CTRC RMVL INSJ IO LENS PROSTH W/O ECP Left 09/09/2015 Cataract Extraction with PC IOL FAMILY HISTORY Problem Relation Age of Onset Heart Father SOCIAL HISTORY Social History Tobacco Use Smoking status: Former Current packs/day: 1.00 Average packs/day: 1 pack/day for 16.8 years (16.8 ttl pk-yrs) Types: Cigarettes Start date: 2007 Quit date: 1967 Passive exposure: Never Smokeless tobacco: Never Vaping Use Vaping status: Never Used Substance Use Topics Alcohol use: Never Drug use: Not Currently PHYSICAL EXAMINATION General appearance: Well appearing, alert, in no acute distress, well-hydrated, well nourished Psych Alert and oriented to person, place and time Cardiac: no peripheral edema Pulmonary: normal respiratory effort ASSESSMENT/PLAN: B hydronephrosis- stents alone were not adequately draining her kidneys. She is doing well with B nephrostomy tubes. Cont exchanged. F/u with me in 6 months. Jin Antonio MD documented in this encounterFisher[facility]08-20-2024 Telephone encounter Note * Telephone Encounter - Berna Matta - 07/08/2024 2:51 PM EDT Called about her surgery and she is on 08/13. Berna Matta [facility]08-20-2024 Miscellaneous Notes* Telephone Encounter - Berna Turpin - 07/08/2024 2:51 PM EDT Called about her surgery and she is on 08/13. Berna Matta documented in this encounterFisher-[facility]itus [facility] Center08-19-2024 History of Present illness Narrative* Jin Antonio MD - 07/07/2024 12:06 PM EDT ESTABLISHED PATIENT OFFICE VISIT The patient is here for follow-up of bilateral ureteral obstruction. She is overall tolerating the nephrostomy tubes. Her level of activity continues to slowly increase. LAB RESULTS Creatinine Date Value Ref Range Status 06/19/2024 1.71 (H) 0.51 - 0.95 mg/dL Final Comment: Patients receiving either N-Acetylcysteine (NAC) or Metamizole prior to venipuncture, may have falsely depressed results. No results found for: PSA, PSASC No results found for: UGLUCPOC, UBILIPOC, UKETONPOC, USGPOC, UHBPOC, UPHPOC, UPROPOC,UUROPOC, UNITPOC, UWBCPOC, UCOLPO, [facility]] ALLERGIES Allergen Reactions Methylprednisolone Other: See Comments Bactrim [Sulfametho* Shortness of Breath Influenza Virus Vac* Unknown Pravastatin Intolerance Prednisone Unknown Bbwobif-Rjt-Ook Red* Anaphylaxis MEDICATIONS: sodium chloride 0.9 %, flush, (BD POSIFLUSH) syringe 10 mL once daily. Urinary Bag (BARD URINARY DRAINAGE SYSTEM) misc 2 Bags as needed. levothyroxine (SYNTHROID) 25 mcg tablet Take 1 tablet by mouth every afternoon. IPRATROPIUM BROMIDE NASAL Use 1 [place] in the nose every morning. pantoprazole DR (PROTONIX) 40 mg tablet Take 40 mg by mouth every morning. potassium chloride ER (KLOR-CON) 20 mEq tablet Take 20 mEq by mouth every morning. amLODIPine (NORVASC) 2.5 mg tablet Take 2.5 mg by mouth every morning. ALBUTEROL SULFATE (VENTOLIN INHALATION) Inhale 1 [place] as instructed every 4 hours as needed (wheezing/shortness of breath). REVIEW OF SYSTEMS GENERAL:no unintentional weight loss, malaise or fevers. NEUROLOGIC: pt is alert and oriented GASTROINTESTINAL: No nausea, vomiting, or diarrhea GENITOURINARY: No history of dysuria, frequency or incontinence MUSCULOSKELETAL: Negative for joint pain or swelling, back pain or muscle pain SKIN: Negative for lesions, rash, and itching. ACTIVE PROBLEM LIST Hypermature senile cataract - Both Eyes Regular astigmatism - Both Eyes Essential Hypertension High Cholesterol Asthma S/P Laser Cataract Surgery Astigmatism of Left Eye Luly (Acute Kidney Injury) (Hcc) Bilateral Hydronephrosis Leukocytosis Diarrhea Recurrent Uti Hydronephrosis Preop Testing Uti (Urinary Tract Infection) HISTORIES PAST MEDICAL HISTORY No date: Asthma No date: Difficult intravenous access Comment: CAN ONLY USE RIGHT ARM No date: H/O: Dunbar's palsy Comment: MANY YEARS AGO, NO AFFECTS FROM IT AT THIS TIME No date: Hypertension No date: Renal failure Comment: NO DIALYSIS FOR [address] ANGELA DRUMMOND-- WENT FOR 2 YEARS REMAINS TO HAVE FISTULA IN LEFT UPPER ARM No date: Thyroid disease Comment: JUST DIAGNOSISED, NEW MEDICATIONS JUST ORDERED 02/04 SHE IS NOT SURE OF DOSE PAST SURGICAL HISTORY 08/11/2015: CRNL RELAXING INC CORRJ INDUCED ASTIGMATISM; Right Comment: LRI (Corneal Relaxing Incision) 09/09/2015: CRNL RELAXING INC CORRJ INDUCED ASTIGMATISM; Left Comment: LRI (Corneal Relaxing Incision) No date: FISTULA; Left Comment: LEFT UPPER ARM NOT BEING USED DR MILLER IS RENAL MD No date: LOOP RECORDER Comment: SHUT OFF AT THIS TIME No date: PAST SURGICAL HISTORY OF Comment: gallbladder 11/19/1983: PAST SURGICAL HISTORY OF Comment: radiation 08/11/2015: XCAPSL CTRC RMVL INSJ IO LENS PROSTH W/O ECP; Right Comment: Cataract Extraction with Femtosecond Laser (LenSx) 09/09/2015: XCAPSL CTRC RMVL INSJ IO LENS PROSTH W/O ECP; Left Comment: Cataract Extraction with PC IOL FAMILY HISTORY Problem Relation Age of Onset Heart Father SOCIAL HISTORY Social History Tobacco Use Smoking status: Former Current packs/day: 0.00 Types: Cigarettes Quit date: 01/04/2008 Years since quittin.5 Passive exposure: Never Smokeless tobacco: Never Vaping Use Vaping status: Never Used Substance Use Topics Alcohol use: Never Drug use: Not Currently PHYSICAL EXAMINATION General appearance: Well appearing, alert, in no acute distress, well-hydrated, well nourished Psych Alert and oriented to person, place and time Cardiac: no peripheral edema Pulmonary: normal respiratory effort ASSESSMENT/PLAN: 1. Bilateral hydronephrosis - ICD9: 591, ICD10: N13.30 (primary diagnosis) I plan to exchange her bilateral ureteral stents in July. She is going to have her nephrostomytubes exchanged later this week. My plan is to plug her nephrostomy tubes at the time of her stent exchange. If her renal function remained stable we would then consider removing the nephrostomy tubes. We discussed the fact that when we first met she had bilateral ureteral stents, but her renal function continued to deteriorate. Once bilateral nephrostomy tubes were placed her renal function improved. - SURGICAL REQUEST - ELECTIVE (06/2020) 2. LULY (acute kidney injury) (HCC) - ICD9: 584.9, ICD10: N17.9 Improved 3. Recurrent UTI - ICD9: 599.0, ICD10: N39.0 Jin Antonio MD documented in this encounterFisher[facility]08-16-2024 Telephone encounter Note * Telephone Encounter - Lesly Banuelos RN - 07/04/2024 9:09 AM EDT Returned patient's VM. She states her left nephrostomy tube is not draining into the bag and is leaking around the tube. She states it would not flush last night or this morning. Advised patient to go to the ER for further evaluation. She voiced understanding. Lesly Banuelos RN [facility]08-16-2024 Miscellaneous Notes* Telephone Encounter - Lesly Banuelos RN - 07/04/2024 9:09 AM EDT Returned patient's VM. She states her left nephrostomy tube is not draining into the bag and is leaking around the tube. She states it would not flush last night or this morning. Advised patient to go to the ER for further evaluation. She voiced understanding. Lesly Banuelos RN documented in this encounterFisher-Titus [facility] Center07-29-2024 Surgery Surgical operation note* Brief Op Note - Geraldo Campbell MD, MD - 06/16/2024 11:25 AM EDT INTERVENTIONAL RADIOLOGY POST PROCEDURE NOTE DATE: 06/16/24 NAME: Todd Delong LOG ID: [id number] Pre-Procedure Diagnosis: Hydronephrosis. Existing left nephrostomy partially pulled out Controls Operator Molded Goods: Surgeon(s) and Role: * Geraldo Campbell MD, MD - Primary Procedure: Nephrostomy tube recanalization and placement of a new tube (left) Anesthesia: Local anesthesia and procedural sedation Findings: The tract of the fallen nephrostomy tube was recanalized with a catheter and wire for placement of a new tube that has adequate position and function Estimated Blood Loss: None Specimen: None Complications: None Post-Op/Post-Procedure Diagnosis: Recanalization of the tract of the fallen nephrostomy tube for placement of a new catheter. Nephrostomy tube change in 8 to 10 weeks is recommended Please see Radiology report for complete information [facility] Work Phone: 1(355) 950-687907-29-2024 Surgical operation note* Brief Op Note - Geraldo Campbell MD, MD - 06/16/2024 11:25 AM EDT INTERVENTIONAL RADIOLOGY POST PROCEDURE NOTE DATE: 06/16/24 NAME: Todd Delong LOG ID: [id number] Pre-Procedure Diagnosis: Hydronephrosis. Existing left nephrostomy partially pulled out Controls Operator Molded Goods: Surgeon(s) and Role: * Geraldo Campbell MD, MD - Primary Procedure: Nephrostomy tube recanalization and placement of a new tube (left) Anesthesia: Local anesthesia and procedural sedation Findings: The tract of the fallen nephrostomy tube was recanalized with a catheter and wire for placement of a new tube that has adequate position and function Estimated Blood Loss: None Specimen: None Complications: None Post-Op/Post-Procedure Diagnosis: Recanalization of the tract of the fallen nephrostomy tube for placement of a new catheter. Nephrostomy tube change in 8 to 10 weeks is recommended Please see Radiology report for complete information documented in this encounterFisher-Titus [facility] Center07-29-2024 Telephone encounter Note * Telephone Encounter - Berna Matta - 06/16/2024 8:30 AM EDT Called and made her aware and she is aware. She took nasal spray and metronidazole. IR nurses state she can take medications. Called her and she is aware. Berna Matta [facility]07-29-2024 Miscellaneous Notes* Telephone Encounter - Berna Turpin - 06/16/2024 8:30 AM EDT Called and made her aware and she is aware. She took nasal spray and metronidazole. IR nurses state she can take medications. Called her and she is aware. Berna Matta * Telephone Encounter - Berna Matta - 06/16/2024 8:16 AM EDT Messaged IR and they can see her today by 10 am. Called pt and had to leave message. Berna Matta * Telephone Encounter - Berna Matta - 06/16/2024 6:54 AM EDT Per Yoselin bubble chat: called Sunday, decr L NT out put needs to go to IR today or tomorrow for L reposition/exchange Sent message to IR nurse 06/16 Berna Matta documented in this encounterFisher[facility] Center07-29-2024 Telephone encounter Note * Telephone Encounter - Berna Matta - 06/16/2024 8:16 AM EDT Messaged IR and they can see her today by 10 am. Called pt and had to leave message. Berna Matta [facility]07-29-2024 Telephone encounter Note* Telephone Encounter - Berna Matta - 06/16/2024 6:54 AM EDT Per Yoselin bubble chat: called Sunday, decr L NT out put needs to go to IR today or tomorrow for L reposition/exchange Sent message to IR nurse 06/16 Berna Matta [facility]06-25-2024 Surgery Surgical operation note* Brief Op Note - Jona Clark MD - 05/13/2024 9:03 AM EDT BRIEF OPERATIVE / PROCEDURE NOTE LOG ID: [id number] SURGERY/PROCEDURE DATE: 05/13/2024 INCISION/PROCEDURE START TIME: 8:44 AM INCISION CLOSE/PROCEDURE END TIME: 8:56 AM SURGEON(S)/PROCEDURALIST(S) AND GLASS BLOCK BENDER(S): Surgeon(s) and Role: * Jona Clark MD - Primary No Additional Staff SURGERY/PROCEDURE(S): Bilateral nephrostomy tube exchange. ANESTHESIA: Local FINDINGS: Routine exchange of bilateral 8 Tongan nephrostomy tubes ESTIMATED BLOOD LOSS: Scant SPECIMENS: None COMPLICATIONS: None PRE-OP/PRE-PROCEDURE DIAGNOSIS: Chronic ureteral obstruction. POST-OP/POST-PROCEDURE DIAGNOSIS: Same as Preop SIGNATURE: Jona Clark MD PATIENT NAME: Todd Delong DATE: May 13, 2024 TIME: 9:03 AM [facility] Work Phone: 1(932) 811-160006-25-2024 Surgical operation note* Brief Op Note - Jona Clark MD - 05/13/2024 9:03 AM EDT BRIEF OPERATIVE / PROCEDURE NOTE LOG ID: [id number] SURGERY/PROCEDURE DATE: 05/13/2024 INCISION/PROCEDURE START TIME: 8:44 AM INCISION CLOSE/PROCEDURE END TIME: 8:56 AM SURGEON(S)/PROCEDURALIST(S) AND GLASS BLOCK BENDER(S): Surgeon(s) and Role: * Jona Clark MD - Primary No Additional Staff SURGERY/PROCEDURE(S): Bilateral nephrostomy tube exchange. ANESTHESIA: Local FINDINGS: Routine exchange of bilateral 8 Tongan nephrostomy tubes ESTIMATED BLOOD LOSS: Scant SPECIMENS: None COMPLICATIONS: None PRE-OP/PRE-PROCEDURE DIAGNOSIS: Chronic ureteral obstruction. POST-OP/POST-PROCEDURE DIAGNOSIS: Same as Preop SIGNATURE: Jona Clark MD PATIENT NAME: Todd Delong DATE: May 13, 2024 TIME: 9:03 AM documented in this encounterFisher[facility]06-05-2024 Note* Addendum Note - Corina Felix APRN.CNP - 04/23/2024 12:12 PM EDTAddended by: CORINA FELIX on: 04/23/2024 12:12 PM Modules accepted: Orders [facility]06-05-2024 Miscellaneous Notes* Addendum Note - Corina Felix APRN.CNP - 04/23/2024 12:12 PM EDTAddended by: CORINA FELIX on: 04/23/2024 12:12 PM Modules accepted: Orders * Telephone Encounter - Corina Felix APRN.CNP - 04/23/2024 12:04 PM EDT Spoke with patient - No local pharmacy near her carry flushes- I called [facility] and they do. Order placed and patient informed. Address and phone number provided She will call if issues arise Thanks. Corina Felix APRN.CNP * Telephone Encounter - Rowan Kong OCCA - 04/23/2024 8:45 AM EDT Patient called in and stated she is running low on her saline injections for her neph tubes. Pt states she has 4 left that will last her for 4 days. Pt states that are pharmacy does not carry them and was wondering where she could get saline from. She is a patient. I looked through her recent visits with and phone encounter and I did not see anything where Dr. Antonio sent in a prescription for her saline injections. I am assuming her pharmacy which is [facility] would have them? Doesshe need a prescription for the saline injections? Please let me know. ELAINE Dominguez documented in this encounterFisher[facility]06-05-2024 Telephone encounter Note * Telephone Encounter - Corina Felix APRN.CNP - 04/23/2024 12:04 PM EDT Spoke with patient - No local pharmacy near her carry flushes- I called [facility] and they do. Order placed and patient informed. Address and phone number provided She will call if issues arise Thanks. Corina Felix APRN.CNP [facility]06-05-2024 Telephone encounter Note* Telephone Encounter - Rowan Kong OCCA - 04/23/2024 8:45 AM EDT Patient called in and stated she is running low on her saline injections for her neph tubes. Pt states she has 4 left that will last her for 4 days. Pt states that are pharmacy does not carry them and was wondering where she could get saline from. She is a patient. I looked through her recent visits with and phone encounter and I did not see anything where Dr. Antonio sent in a prescription for her saline injections. I am assuming her pharmacy which is [facility] would have them? Doesshe need a prescription for the saline injections? Please let me know. ELAINE Dominguez [facility]04-30-2024 Surgery Surgical operation note* Brief Op Note - Rocío Palmer MD, MD - 03/18/2024 4:04 PM EDT BRIEF OPERATIVE / PROCEDURE NOTE LOG ID: [id number] SURGERY/PROCEDURE DATE: 03/18/2024 INCISION/PROCEDURE START TIME: 3:45 PM INCISION CLOSE/PROCEDURE END TIME: 4:02 PM SURGEON(S)/PROCEDURALIST(S) AND GLASS BLOCK BENDER(S): Surgeon(s) and Role: * Rocío Palmer MD, - Primary No Additional Staff SURGERY/PROCEDURE(S): Left neph tube replacement and right neph tune exchange ANESTHESIA: Local FINDINGS: Left was completely out, Right was dislodged. New tubes adequately placed in renal pelvises. ESTIMATED BLOOD LOSS: Minimal SPECIMENS: None COMPLICATIONS: None CLOSURE TECHNIQUE: Primary PRE-OP/PRE-PROCEDURE DIAGNOSIS: Hydronephrosis POST-OP/POST-PROCEDURE DIAGNOSIS: Same as Preop SIGNATURE: Rocío Palmer MD PATIENT NAME: Todd Delong DATE: March 18, 2024 TIME: 4:04 PM [facility] Work Phone: 1(930) 109-234304-30-2024 Surgical operation note* Brief Op Note - Rocío Palmer MD, MD - 03/18/2024 4:04 PM EDT BRIEF OPERATIVE / PROCEDURE NOTE LOG ID: [id number] SURGERY/PROCEDURE DATE: 03/18/2024 INCISION/PROCEDURE START TIME: 3:45 PM INCISION CLOSE/PROCEDURE END TIME: 4:02 PM SURGEON(S)/PROCEDURALIST(S) AND GLASS BLOCK BENDER(S): Surgeon(s) and Role: * Rocío Palmer MD, MD - Primary No Additional Staff SURGERY/PROCEDURE(S): Left neph tube replacement and right neph tune exchange ANESTHESIA: Local FINDINGS: Left was completely out, Right was dislodged. New tubes adequately placed in renal pelvises. ESTIMATED BLOOD LOSS: Minimal SPECIMENS: None COMPLICATIONS: None CLOSURE TECHNIQUE: Primary PRE-OP/PRE-PROCEDURE DIAGNOSIS: Hydronephrosis POST-OP/POST-PROCEDURE DIAGNOSIS: Same as Preop SIGNATURE: Rocío Palmer MD PATIENT NAME: Todd Delong DATE: March 18, 2024 TIME: 4:04 PM documented in [facility] Telephone encounter Note * Telephone Encounter - Berna Matta - 03/18/2024 12:13 PM EDT Wendie from IR called and pt is coming in in a few hours for her neph tube replacement. Berna Matta [facility]04-30-2024 Miscellaneous Notes* Telephone Encounter - Berna Turpin - 03/18/2024 12:13 PM EDT Wendie from IR called and pt is coming in in a few hours for her neph tube replacement. Berna Matta * Telephone Encounter - Berna Matta - 03/18/2024 11:47 AM EDT Called IR and spoke with Yessica and she transferred me to the IR room and spoke with Wendie and theyare going to call the patient. Called pt to make aware they are going to call her to get her scheduled and she voiced understanding. Berna Matta * Telephone Encounter - Meredith Jacome RN - 03/18/2024 10:45 AM EDT Called patient and let her know she does not need to go to ER per Dr Antonio but that she will need towait for call for reinsertion today. Patient verbalized understanding. Meredith Jacome RN * Telephone Encounter - Meredith Jacome RN - 03/18/2024 10:38 AM EDT Attempted to call patient no answer. Left message to call office back. Meredith Jacome RN * Telephone Encounter - Jin Antonio MD - 03/18/2024 10:26 AM EDT She does not need to go to the ER, but I will place order for reinsertion. That needs to happen today. * Telephone Encounter - Meredith Jacome RN - 03/18/2024 10:06 AM EDT Sister called in left voicemail I called patient and confirmed that patient states left nephrostomytube fell out yesterday. Patient states Dr Antonio usually schedules a date/time for her to come in tohave new one inserted. This RN recommended patient come to [facility] ER for evaluation and treatment today. Please advise as patient states she would wait to leave home for a little while to hear back prior to leaving for ER. Thanks, Meredith Jacome RN documented [facility]04-30-2024 Telephone encounter Note * Telephone Encounter - Berna Matta - 03/18/2024 11:47 AM EDT Called IR and spoke with Yessica and she transferred me to the IR room and spoke with Wendie and theyare going to call the patient. Called pt to make aware they are going to call her to get her scheduled and she voiced understanding. Berna Matta [facility]04-30-2024 Telephone encounter Note* Telephone Encounter - Meredith Jacome RN - 03/18/2024 10:45 AM EDT Called patient and let her know she does not need to go to ER per Dr Antonio but that she will need towait for call for reinsertion today. Patient verbalized understanding. Meredith Jacome RN [facility]04-30-2024 Telephone encounter Note* Telephone Encounter - Meredith Jacome RN - 03/18/2024 10:38 AM EDT Attempted to call patient no answer. Left message to call office back. Meredith Jacome RN [facility]04-30-2024 Telephone encounter Note* Telephone Encounter - Jin Antonio MD - 03/18/2024 10:26 AM EDT She does not need to go to the ER, but I will place order for reinsertion. That needs to happen today. T [facility]04-30-2024 Telephone encounter Note* Telephone Encounter - Meredith Jacome RN - 03/18/2024 10:06 AM EDT Sister called in left voicemail I called patient and confirmed that patient states left nephrostomytube fell out yesterday. Patient states Dr Antonio usually schedules a date/time for her to come in tove new one inserted. This RN recommended patient come to [facility] ER for evaluation and treatment today. Please advise as patient states she would wait to leave home for a little while to hear back prior to leaving for ER. Thanks, Meredith Jacome RN [facility]04-29-2024 Telephone encounter Note* Telephone Encounter - Eden Velez LPN - 03/17/2024 11:05 AM EDT Gena from home care called ) for ICD 10 code so script for drainage bag could be filled. I gave her the codes listed in her chart. Eden Velez LPN [facility]04-29-2024 Miscellaneous Notes* Telephone Encounter - Eden Velez LPN - 03/17/2024 11:05 AM EDT Gena from home care called ( [phone]) for ICD 10 code so script for drainage bag could be filled. I gave her the codes listed in her chart. Eden Velez LPN documented in this encounter[facility]04-29-2024 Telephone encounter Note * Telephone Encounter - Rosio Archer - 03/17/2024 8:50 AM EDT Pt called regarding upcoming Interventional Rad appt wanting to change time. Referred to Interventional Radiology. Rosio Archer [facility]04-29-2024 Miscellaneous Notes* Telephone Encounter - Rosio Archer - 03/17/2024 8:50 AM EDT Pt called regarding upcoming Interventional Rad appt wanting to change time. Referred to Interventional Radiology. Rosio Archer documented in this encounter[facility]04-15-2024 History of Present illness Narrative* Jin Antonio MD - 03/03/2024 3:55 PM EDT ESTABLISHED PATIENT OFFICE VISIT F/u CRI and B ureteral obstruction. She was admitted for sepsis to [facility] for sepsis after replacing a neph tube that was inadvertently pulled out. She is getting back to baseline as far as energy. She is tolerating the neph tubes. LAB RESULTS Creatinine Date Value Ref Range Status 12/24/2023 2.09 (H) 0.51 - 0.95 mg/dL Final Comment: Patients receiving either N-Acetylcysteine (NAC) or Metamizole prior to venipuncture, may have falsely depressed results. No results found for: UGLUCPOC, UBILIPOC, UKETONPOC, USGPOC, UHBPOC, UPHPOC, UPROPOC,UUROPOC, UNITPOC, UWBCPOC, UCOLPOC, UCLARPOC] ALLERGIES Allergen Reactions Methylprednisolone Other: See Comments Bactrim [Sulfametho* Shortness of Breath Influenza Virus Vac* Unknown Pravastatin Intolerance Prednisone Unknown Cgroapj-Cuj-Wss Red* Anaphylaxis MEDICATIONS: levothyroxine (SYNTHROID) 25 mcg tablet Take 1 tablet by mouth every afternoon. IPRATROPIUM BROMIDE NASAL Use 1 [place] in the nose every morning. pantoprazole DR (PROTONIX) 40 mg tablet Take 40 mg by mouth every morning. potassium chloride ER (KLOR-CON) 20 mEq tablet Take 20 mEq by mouth every morning. amLODIPine (NORVASC) 2.5 mg tablet Take 2.5 mg by mouth every morning. ALBUTEROL SULFATE (VENTOLIN INHALATION) Inhale 1 [place] as instructed every 4 hours as needed (wheezing/shortness of breath). Urinary Bag (BARD URINARY DRAINAGE SYSTEM) misc 2 Bags as needed. REVIEW OF SYSTEMS GENERAL: no unintentional weight loss, malaise or fevers. NEUROLOGIC: pt is alert and oriented GASTROINTESTINAL: No nausea, vomiting, or diarrhea GENITOURINARY: No history of dysuria, frequency or incontinence MUSCULOSKELETAL: Negative for joint pain or swelling, back pain or muscle pain SKIN: Negative for lesions, rash, and itching. ACTIVE PROBLEM LIST Hypermature senile cataract - Both Eyes Regular astigmatism - Both Eyes Essential Hypertension High Cholesterol Asthma S/P Laser Cataract Surgery Astigmatism of Left Eye Luly (Acute Kidney Injury) (Hcc) Bilateral Hydronephrosis Leukocytosis Diarrhea Recurrent Uti Hydronephrosis Preop Testing HISTORIES PAST MEDICAL HISTORY Diagnosis Date Asthma Difficult intravenous access CAN ONLY USE RIGHT ARM H/O: Dunbar's palsy MANY YEARS AGO, NO AFFECTS FROM IT AT THIS TIME Hypertension Renal failure NO DIALYSIS FOR [address] MILLER MANAGES-- WENT FOR 2 YEARS REMAINS TO HAVE FISTULA IN LEFT UPPER ARM Thyroid disease JUST DIAGNOSISED, NEW MEDICATIONS JUST ORDERED 02/04 SHE IS NOT SURE OF DOSE PAST SURGICAL HISTORY Procedure Laterality Date CRNL RELAXING INC CORRJ INDUCED ASTIGMATISM Right 08/11/2015 LRI (Corneal Relaxing Incision) CRNL RELAXING INC CORRJ INDUCED ASTIGMATISM Left 09/09/2015 LRI (Corneal Relaxing Incision) FISTULA Left LEFT UPPER ARM NOT BEING USED DR MILLER IS RENAL MD LOOP RECORDER SHUT OFF AT THIS TIME PAST SURGICAL HISTORY OF gallbladder PAST SURGICAL HISTORY OF 11/19/1983 radiation XCAPSL CTRC RMVL INSJ IO LENS PROSTH W/O ECP Right 08/11/2015 Cataract Extraction with Femtosecond Laser (LenSx) XCAPSL CTRC RMVL INSJ IO LENS PROSTH W/O ECP Left 09/09/2015 Cataract Extraction with PC IOL FAMILY HISTORY Problem Relation Age of Onset Heart Father SOCIAL HISTORY Social History Tobacco Use Smoking status: Former Types: Cigarettes Quit date: 01/04/2008 Years since quittin.1 Passive exposure: Never Smokeless tobacco: Never Vaping Use Vaping Use: Never used Substance Use Topics Alcohol use: Never Drug use: Not Currently PHYSICAL EXAMINATION General appearance: Well appearing, alert, in no acute distress, well-hydrated, well nourished Psych Alert and oriented to person, place and time ASSESSMENT/PLAN: 1. Bilateral hydronephrosis - ICD9: 591, ICD10: N13.30 (primary diagnosis) Likely due to effect of XRT for cervical Ca on the remote past. I intend to leave the neph tubes in place as long as she is tolerating them since her renal fxn deteriorated with B stents along I will exchange the stents in . IR will exchange the neph tues every 3 months - IR NEPH TUBE CHANGE 2. LULY (acute kidney injury) (HCC) - ICD9: 584.9, ICD10: N17.9 Cr improved but still elevated Jin Antonio MD documented in this encounterFisher[facility]03-31-2024 Discharge summary Author Julianna Matthews [facility] February 17, 2024 10:52am Note Date/Time February 17, 2024 10: 14am [facility] Medical Records Department [address] [place] [id number] Discharge Summary 02/17/24 1014 MR#: [id number] Acct: [id number] Name: TODD DELONG Rep #:[id number] : 1950 73 From: Julianna Matthews DO PCP: Dr. Gerardo García MD Status:ADM I N Location: [place] [address] Providers Date of Admission: 02/14/24 Date of Discharge: 02/17/24 Primary Care Physician: Dr. Gerardo García MD Reason For Visit: RIGHT PYELONEPHRITIS Diagnosis Discharge Diagnosis (1) Pyelonephritis of right kidney: Status: Acute Code(s): N12 - Tubulo-interstitial nephritis, not specified as acute or chronic (2) UTI (urinary tract infection): Status: Acute Code(s): N39.0 - Urinary tract infection, site not specified (3) Sinus tachycardia: Status: Acute Code(s): R00.0 - Tachycardia, unspecified (4) Leukocytosis: Status: Acute Code(s): D72.829 - Elevated white blood cell count, unspecified Qualifiers: Leukocytosis type: unspecified Qualified Code(s): D72.829 - Elevated white blood cell count, unspecified (5) Hypokalemia: Status: Acute Code(s): E87.6 - Hypokalemia Medications at Discharge Home Medications albuterol sulfate 90 mcg/actuation aerosol inhaler (Ventolin HFA) 2 puff inhalation Q6H PRN Sob &/Or Wheezing 07/25/18 potassium chloride 20 mEq tablet,extended release(part/cryst) 20 meq PO DAILY supplement 09/01/20 amlodipine 2.5 mg tablet 2.5 mg PO DAILY BP #90 tabs 08/12/21 ipratropium bromide 42 mcg (0.06 %) nasal spray 2 spray intranasal DAILY allergie 11/23/21 pantoprazole 40 mg tablet,delayed release 40 mg PO DAILY GERD 03/27/23 levothyroxine 25 mcg tablet 25 mcg PO DAILY thyroid 02/14/24 ciprofloxacin HCl 500 mg tablet (Cipro) 500 mg PO BID #10 tabs 02/17/24 Hospital Course Procedures - (Renal ultrasound) Summary of Care Provided Minutes Spent on Discharge: 37 Hospital Course: Mrs. Delong is a 73-year-old white female who presented to the emergency department [facility] on 02/14/2024 with shaking chills and a documented temperature at home at 100.1 and concerns for UTI. The patient reported she has a history of recurrent urinary tract infections and had a rightnephrostomy tube reinserted because it fell out. This was performed by [facility]. Her ureteral stents were changed about 1 week ago and she also has a left nephrostomy tube in place. She has had previous multiple admissions for sepsis related to urinary tract infections. She denied any abdominal pain, vomiting or diarrhea but was nauseated. She does not urinate atbaseline due to her nephrostomy tube placement. She does have history of multidrug-resistant UTIs previously that have required longer-term IV antibiotics via PICC line. On presentation she had fever shaking chills and dysuria. Her symptoms began about a week before presentation. She was noted tohave pyelonephritis on the right side and was given a single dose of IV antibiotics prior to being discharged when her nephrostomy tube was changed at [place]. Vital signs on presentation showed temperature of 98.4, heart rate ure772, blood pressure was 136/77, pulse ox was 96% room air. Her CBC showed a leukocytosis with a white count of 16.6, but was otherwise unremarkable. Coags were normal. Her chemistry panel showed normal electrolytes. She had an elevated BUN at 21 and a serum creatinine of 1.75 which is less than her previous and seems to be close to her baseline. Her liver function was normal. Her UA showed occult blood was negative for nitrites but did have significant leuk esterase, greater than 100 white cells and bacteria was present. She was admitted to the medical floor and placed on cefepime after cultures were obtained. She clinically improved very quickly and was not having any fevers after admission. Cultures did grow out 3 bacteria. We did obtain a renal ultrasound to rule out pyelonephritis and there was no evidence of Sheldon but she did have evidence of chronic hydronephrosis on her ultrasound. These were Klebsiella oxytoca, Pseudomonas aeruginosa, and Stenotrophomonas maltophilia. All colony counts were on the low side however patient did receive outpatient antibiotics so I am unclear if they are low because of that or because she is colonized so we will go ahead and proceed with treatment. All of the organisms identified were sensitive to ciprofloxacin. The patient does have reported allergy to Levaquin but she states she has taken ciprofloxacin previously without any difficulty. She was able to be discharged home in stable condition to complete a total of 7 days of antibiotics with ciprofloxacin 500 mg p.o. twice daily for another 5 days. Clinically she was back to her baseline. I encouraged close follow-up with her urologist and light rail operator. Her renal function was stable at 1.6-1.7 throughout her entire hospital course. Discharge diagnoses: Polymicrobial complicated UTI Chronic bilateral hydronephrosis Chronic bilateral nephrostomy tubes Leukocytosis-resolved Hypokalemia-resolved Hypomagnesemia-resolved CKD stage IIIb Hypertension Hyperlipidemia Hypothyroidism GERD Seasonal allergies History of gout History of tobacco abuse Physical Exam Const alert, oriented x3, no apparent distress, average body habitus, no limitations, healthy appearing and well nourished Constitutional Narrative: Very pleasant, older, white female, sitting up in bed, watching television and on cell phone, patient appears comfortable and nontoxic at this time General Appearance: cooperative, comfortable, well kempt and well developed HEENT normocephalic, head/scalp atraumatic, hearing grossly normal bilaterally and moist oral mucous membranes HEENT Narrative: Mallampati is 2, no thrush Eyes PERRL and EOMs intact bilaterally Eyes Narrative: No scleral icterus Neck no lymphadenopathy and supple Neck Narrative: Trachea midline, no thyroid enlargement Resp normal respiratory effort, no retractions, no use of accessory muscles and clearto auscultation bilaterally Auscultation: Negative for rales, rhonchi or wheezes Cardio regular rate, regular rhythm, S1 normal heart sound, S2 normal heart sound, no murmurs, no rub, no gallops and no clicks GI normal to inspection, nondistended, normoactive bowel sounds, soft to palpation,non-tender and non-distended GI Narrative: Bilateral nephrostomy tubes in place-urine is clear Extremity no clubbing, cyanosis or edema Extremity Narrative: Pedal pulses are 2+, radial pulses are 2+ Skin Skin Narrative: Patient has no evidence of abscess or rash. Neuro oriented x3, CN's II-XII intact bilaterally, moves all extremities and no focal motor deficits Speech: speech normal Psych affect normal Psych Narrative: Very pleasant, interacts appropriately Weight / BMI Weight Weight: 77.7 kg Body Mass Index (BMI) 25.9 ABG / Lab / Microbiology Data 02/17/24 04:40 02/17/24 04:40 Laboratory: Laboratory Results - last 24 hr 02/14/24 18:22: Urine Color Yellow 02/14/24 18:22: Urine Color Yellow, Urine Clarity Cloudy 02/14/24 18:22: Urine Clarity Cloudy, Urine pH 6.5 02/14/24 18:22: Urine pH 7.0, Ur Specific [place] 1.010 02/14/24 18:22: Ur Specific [place] 1.005, Urine Protein 100 H 02/14/24 18:22: Urine Protein 30 H, Urine Glucose (UA) Normal 02/14/24 18:22: Urine Glucose (UA) Normal, Urine Ketones Negative 02/14/24 18:22: Urine Ketones Negative, Urine Occult Blood 250 H 02/14/24 18:22: Urine Occult Blood 150 H, Urine Nitrite Negative 02/14/24 18:22: Urine Nitrite Negative, Urine Bilirubin Negative 02/14/24 18:22: Urine Bilirubin Negative, Urine Urobilinogen Normal 02/14/24 18:22: Urine Urobilinogen Normal, Ur Leukocyte Esterase 500 H 02/14/24 18:22: Ur Leukocyte Esterase 500 H, Urine RBC 10-25 SEEN 02/14/24 18:22: Urine RBC 5-10 SEEN, Urine WBC >100 SEEN 02/14/24 18:22: Urine WBC >100 SEEN, Ur Squamous Epith Cells 0 SEEN 02/14/24 18:22: Ur Squamous Epith Cells 0-5 SEEN, Ur Transition Epith Cell 0-5 SEEN 02/14/24 18:22: Ur Transition Epith Cell 0-5 SEEN, Ur Renal Epithelial Cell 0-5 SEEN 02/14/24 18:22: Ur Renal Epithelial Cell 0-5 SEEN, Urine Bacteria RARE 02/14/24 18:22: Urine Bacteria RARE, Urine Mucus 0 SEEN 02/14/24 18:22: Urine Mucus 0 SEEN 02/17/24 04:40: WBC 10.8, RBC 3.83 L, Hgb 12.4, Hct 38.0, MCV 99.2 H, MCH 32.4 H, MCHC 32.6, RDW Std Deviation 47.9 H, RDW Coeff of Dewey 13.2, Plt Count 305, MPV10.4, Immature Gran % (Auto) 0.300, Neut % (Auto) 46.8 L, Lymph % (Auto) 41.4 H,Brooks % (Auto) 6.8, Eos % (Auto) 4.2, Baso % (Auto) 0.5, Absolute Neuts (auto) 5.1, Absolute Lymphs (auto) 4.47, Nucleated RBC % 0, Sodium 142, Potassium 3.7, Chloride 115 H, Carbon Dioxide 22.0, Anion Gap 5, BUN 15, Creatinine 1.62 H, Estim Creat Clear Calc 32.13, Est GFR (MDRD) Af Amer 40 L, Est GFR (MDRD) Non-Af33 L, BUN/Creatinine Ratio 9.3 L, Glucose 90, Calcium 8.7 Microbiology: Microbiology 02/14/24 18:22 Urine, Nephrostomy Urine Culture - Preliminary GNR Poss Pseudomonas sp GPC Poss Enterococcus sp Gram positive organism#2 02/14/24 18:04 Blood Culture (Wb) - Anticubital Right Blood Culture - Preliminary No growth in 48 hours. 02/14/24 17:39 Blood Culture (Wb) - Anticubital Right Blood Culture - Preliminary No growth in 48 hours. 02/14/24 18:22 Urine, Nephrostomy Urine Culture - Final Klebsiella oxytoca Stenotrophomonas maltophilia Pseudomonas aeruginosa D/C Instructions Discharge Diet: Low fat / Low cholesterol Discharge Activity: Return to Normal Activity Return to work on: 02/18/24 Meaningful Use Info Meaningful Use Diagnoses (Choose all that apply): None applicable Discharge Plan Admission Admit Date/Time: 02/14/24 19:23 Primary Reason for Your Visit: Chills/fever Attending Provider: Julianna Matthews Primary Care Provider: Gerardo García Chi Consulting Providers: Andres Maurer Instructions Additional Instructions / Restrictions: 1. Please follow-up with your urologist and light rail operator Discharge Orders/Prescriptions Prescriptions: New ciprofloxacin HCl [Cipro] 500 mg tablet 500 mg PO BID Qty: 10 0RF Continued albuterol sulfate [Ventolin HFA] 90 mcg/actuation HFA aerosol inhaler 2 puff INHALATION Q6H PRN (Reason: Sob &/Or Wheezing) pantoprazole 40 mg tablet,delayed release (DR/EC) 40 mg PO DAILY Hold Instructions: Order Completed potassium chloride 20 MEQ tablet,ER particles/crystals 20 meq PO DAILY ipratropium bromide 42 mcg (0.06 %) spray,non-aerosol 2 spray INTRANASAL DAILY levothyroxine 25 mcg tablet 25 mcg PO DAILY amlodipine 2.5 mg tablet 2.5 mg PO DAILY Qty: 90 3RF Discontinued cephalexin 500 mg capsule 500 mg PO TID Referrals / Follow Up: Gerardo García Chi, MD [Primary Care Provider] - Within 1 Month Disposition Disposition (needs filled in before D/C Order can be placed): Home, Self Care Charges/Coding Visit Charges Inpatient E&M: 16152 Disch Hosp >30min 02/17/24 1052 <Electronically signed by Julianna Matthews DO> Cosigner Signature (if applicable): CC: Dr. Julianna Matthews DO; Dr. Gerardo García MD~ Signed [facility] Work Phone: 1(650) 515-473903-30-2024 Progress note Author Julianna Matthews [facility] February 16, 2024 1:33pm Note Date/Time February 16, 2024 1:3 4pm [facility] Medical Records Department [address] [place] [id number] Progress Note - Hospitalist 02/16/24 1329 MR#: [id number] Acct: [id number] Name: TODD DELONG Rep #:[id number] : 1950 73 From: Julianna Matthews DO PCP: Dr. Gerardo García MD Status:ADM I N Location: [place] [id number] Reason for Visit Reason for Visit: Chills/fever Subjective Subjective Patient states she is feeling much better overall. I did discuss with her if wecan get cultures finalized and there is an oral option for we could possibly gether home however cultures are still pending so we will have to keep her overnight. She has a history of multidrug-resistant organisms. Objective Data Objective Data Vital Signs: Vital Signs Temp Pulse Resp BP Pulse Ox O2 Del Method 98.7 F 91 18 136/66 H 97 Room Air 02/16/24 08:28 02/16/24 08:28 02/16/24 09:13 02/16/24 08:28 02/16/24 08:28 02/16/24 09:13 Oxygen Delivery Method Room Air Weight: 73 kg Body Mass Index (BMI) 24.3 Intake & Output: Intake and Output for Last 24 Hours 02/14/24 02/15/24 02/16/24 23:59 23:59 23:59 Intake Total 1100 / 1100 3718.75 / 4018.75 1385.42 / 1385.42 Output Total 1500 / 0 2400 / 2400 Balance 1100 / 800 2218.75 / 1968.75 -1014.58 / -1014.58 Lab / Micro Data 02/16/24 05:40 02/16/24 05:40 Labs: Laboratory Results - last 24 hr 02/14/24 18:22: Urine Color Yellow, Urine Clarity Cloudy, Urine pH 7.0, Ur Specific Parks 1.005, Urine Protein 30 H, Urine Glucose (UA) Normal, Urine Ketones Negative, Urine Occult Blood 150 H, Urine Nitrite Negative, Urine Bilirubin Negative, Urine Urobilinogen Normal, Ur Leukocyte Esterase 500 H, Urine RBC 5-10 SEEN, Urine WBC >100 SEEN, Ur Squamous Epith Cells 0-5 SEEN, Ur Transition Epith Cell 0-5 SEEN, Ur Renal Epithelial Cell 0-5 SEEN, Urine Bacteria RARE, Urine Mucus 0 SEEN 02/16/24 05:40: WBC 10.5, RBC 3.72 L, Hgb 11.6 L, Hct 36.9 L, MCV 99.2 H, MCH 31.2, MCHC 31.4 L, RDW Std Deviation 47.8 H, RDW Coeff of Dewey 13.2, Plt Count 297, MPV 10.5, Immature Gran % (Auto) 0.500, Neut % (Auto) 48.4, Lymph % (Auto) 40.6, Brooks % (Auto) 6.7, Eos % (Auto) 3.3, Baso % (Auto) 0.5, Absolute Neuts (auto) 5.1, Absolute Lymphs (auto) 4.27, Nucleated RBC % 0, Sodium 141, Potassium 3.6, Chloride 114 H, Carbon Dioxide 22.0, Anion Gap 5, BUN 16, Creatinine 1.61 H, Estim Creat Clear Calc 32.33, Est GFR (MDRD) Af Amer 41 L, Est GFR (MDRD) Non-Af 34 L, BUN/Creatinine Ratio 9.9 L, Glucose 88, Calcium 8.5,Magnesium 2.6 Micro: Microbiology 02/14/24 18:22 Urine, Nephrostomy Urine Culture - Preliminary Gram negative king Gram positive organism 02/14/24 18:22 Urine, Nephrostomy Urine Culture - 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 Rhythm Strip Rhythm Strip: Sinus Tach Rate: 110 Ectopy: None Physical Exam Const alert, oriented x3, no apparent distress, average body habitus, healthy appearing and well nourished Constitutional Narrative: Very pleasant, older, white female, sitting up in bed, watching television, patient appears comfortable and nontoxic at this time General Appearance: cooperative HEENT normocephalic, head/scalp atraumatic, hearing grossly normal bilaterally and moist oral mucous membranes HEENT Narrative: Mallampati 2-3, no thrush Resp normal respiratory effort, no retractions, no use of accessory muscles and clearto auscultation bilaterally Auscultation: Negative for rales, rhonchi or wheezes Cardio regular rate, regular rhythm, S1 normal heart sound, S2 normal heart sound, no murmurs, no rub, no gallops and no clicks GI normal to inspection, nondistended, normoactive bowel sounds, soft to palpation,non-tender and non-distended GI Narrative: Bilateral nephrostomy tubes in place-urine is clear Extremity no clubbing, cyanosis or edema Extremity Narrative: Pedal pulses are 2+, radial pulses are 2+ Neuro oriented x3, moves all extremities and no focal motor deficits Speech: speech normal Psych affect normal Psych Narrative: Very pleasant, interacts appropriately Assessment & Plan Assessment/Plan (1) Pyelonephritis of right kidney: (2) UTI (urinary tract infection): (3) Sinus tachycardia: (4) Leukocytosis: QUALIFIERS: Leukocytosis type: unspecified Qualified Code(s): D72.829 - Elevated white blood cell count, unspecified (5) Hypokalemia: PLAN: Plan Complicated urinary tract infection -Renal ultrasound does not show evidence of pyelonephritis -Urine from bilateral nephrostomy tubes does show organism growing however identification has not yet been made nor do we have sensitivities -Blood cultures remain pending -Continue cefepime -Patient does have previous history of multidrug-resistant organisms causing infection so may need infectious disease input depending on organism identification Leukocytosis -Resolved Hypokalemia -Resolved Hypomagnesemia -Resolved 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 -History of AV fistula done in 2020 -Not currently on dialysis -Creatinine remains -Recommend ongoing outpatient follow-up with nephrology History of hypertension -Patient only takes amlodipine 2.5 mg daily -Will restart and monitor blood pressure as she is stable despite infection Hyperlipidemia -Patient has history of anaphylaxis to statin so therefore does not take 1 -Continue outpatient follow-up Hypothyroidism -Continue home levothyroxine GERD -Continue home PPI Seasonal allergies -Continue intranasal ipratropium History of gout -Patient is not on any chronic medications -No signs of acute flare History of tobacco abuse -Remote -Encourage ongoing cessation DVT prophylaxis -Continue Lovenox but increase dose from 30 to 40 mg daily CODE STATUS -full code is verified on admission Charges/Coding Visit Charges Inpatient E&M: 11943 Subs Hosp L2 02/16/24 1333 <Electronically signed by Julianna Matthews DO> Cosigner Signature (if applicable): CC: ~ Signed [facility] Work Phone: 1(453) 731-494203-29-2024 Progress note Author Julianna Matthews [facility] February 15, 2024 2:22pm Note Date/Time February 15, 2024 9:1 7am [facility] Medical Records Department [address] [place] [id number] Progress Note - Hospitalist 02/15/24 0905 MR#: [id number] Acct: [id number] Name: TODD DELONG Rep #:[id number] : 1950 73 From: Julianna Matthews DO PCP: Dr. Gerardo García MD Status:ADM I N Location: [place] [id number] Reason for Visit Reason for Visit: Chills/fever Subjective Subjective Mrs. Delong is a 73-year-old white female who presented to the emergency department [facility] on 02/14/2024 with shaking chills and a documented temperature at home at 100.1 and concerns for UTI. The patient reported she has a history of recurrent urinary tract infections and had a rightnephrostomy tube reinserted because it fell out. This was performed by [facility]. Her ureteral stents were changed about 1 week ago and she also has a left nephrostomy tube in place. She has had previous multiple admissions for sepsis related to urinary tract infections. She denied any abdominal pain, vomiting or diarrhea but was nauseated. She does not urinate atbaseline due to her nephrostomy tube placement. She does have history of multidrug-resistant UTIs previously that have required longer-term IV antibiotics via PICC line. On presentation she had fever shaking chills and dysuria. Her symptoms began about a week before presentation. She was noted tohave pyelonephritis on the right side and was given a single dose of IV antibiotics prior to being discharged when her nephrostomy tube was changed at [place]. Vital signs on presentation showed temperature of 98.4, heart rate [id number], blood pressure was 136/77, pulse ox was 96% room air. Her CBC showed a leukocytosis with a white count of 16.6, but was otherwise unremarkable. Coags were normal. Her chemistry panel showed normal electrolytes. She had an elevated BUN at 21 and a serum creatinine of 1.75 which is less than her previous and seems to be close to her baseline. Her liver function was normal. Her UA showed occult blood was negative for nitrites but did have significant leuk esterase, greater than 100 white cells and bacteria was present. She was admitted to the medical floor and placed on cefepime after cultures were obtained. Patient states she is feeling better but not quite back to baseline yet. She ishoping that she can go home on oral antibiotics this time as she has had to haveIV antibiotics previously. Objective Data Objective Data Vital Signs: Vital Signs Temp Pulse Resp BP Pulse Ox O2 Del Method 97.6 F L 95 18 124/77 H 98 Room Air 02/15/24 07:25 02/15/24 07:25 02/15/24 07:25 02/15/24 07:25 02/15/24 07:25 02/15/24 07:25 Oxygen Delivery Method Room Air Weight: 73.6 kg Body Mass Index (BMI) 24.5 Intake & Output: Intake and Output for Last 24 Hours 02/13/24 02/14/24 02/15/24 23:59 23:59 23:59 Intake Total 1100 / 1100 889.58 / 889.58 Output Total 550 / 550 Balance 1100 / 800 339.58 / 339.58 Lab / Micro Data 02/15/24 06:49 02/15/24 06:49 Labs: Laboratory Results - last 24 hr 02/14/24 17:39: WBC 16.6 H, RBC 4.31, Hgb 13.9, Hct 41.8, MCV 97.0, MCH 32.3 H, MCHC 33.3, RDW Std Deviation 46.9 H, RDW Coeff of Dewey 13.2, Plt Count 376, MPV 10.5, Immature Gran % (Auto) 0.400, Neut % (Auto) 61.4, Lymph % (Auto) 30.3, Brooks % (Auto) 6.2, Eos % (Auto) 1.3, Baso % (Auto) 0.4, Absolute Neuts (auto) 10.2 H, Absolute Lymphs (auto) 5.01 H, Nucleated RBC % 0, Differential Comment SEE COMMENT, Atypical Lymphocytes 1+, Platelet Estimate ADEQUATE, RBC MorphologyN CHROM, Anisocytosis RARE, Macrocytosis RARE, Ovalocytes RARE, PT 13.4, INR 1.0, APTT 29.4, Sodium 138, Potassium 3.6, Chloride 106, Carbon Dioxide 25.0, Anion Gap 7, BUN 21 H, Creatinine 1.75 H, Estim Creat Clear Calc 29.74, Est GFR (MDRD) Af Amer 37 L, Est GFR (MDRD) Non-Af 30 L, BUN/Creatinine Ratio 12.0, Glucose 112 H, Lactic Acid 1.0, Calcium 8.4 L, Total Bilirubin 0.60, AST 12 L, ALT 11 L, Alkaline Phosphatase 104, Total Protein 8.0, Albumin 2.9 L, Globulin 5.1 H, Albumin/Globulin Ratio 0.6 L 02/14/24 18:22: Urine Color Yellow 02/14/24 18:22: Urine Color Yellow, Urine Clarity Cloudy 02/14/24 18:22: Urine Clarity Cloudy, Urine pH 6.5 02/14/24 18:22: Urine pH 7.0, Ur Specific Parks 1.010 02/14/24 18:22: Ur Specific Parks 1.005, Urine Protein 100 H 02/14/24 18:22: Urine Protein 30 H, Urine Glucose (UA) Normal 02/14/24 18:22: Urine Glucose (UA) Normal, Urine Ketones Negative 02/14/24 18:22: Urine Ketones Negative, Urine Occult Blood 250 H 02/14/24 18:22: Urine Occult Blood 150 H, Urine Nitrite Negative 02/14/24 18:22: Urine Nitrite Negative, Urine Bilirubin Negative 02/14/24 18:22: Urine Bilirubin Negative, Urine Urobilinogen Normal 02/14/24 18:22: Urine Urobilinogen Normal, Ur Leukocyte Esterase 500 H 02/14/24 18:22: Ur Leukocyte Esterase 500 H, Urine RBC 10-25 SEEN 02/14/24 18:22: Urine RBC 5-10 SEEN, Urine WBC >100 SEEN 02/14/24 18:22: Urine WBC >100 SEEN, Ur Squamous Epith Cells 0 SEEN 02/14/24 18:22: Ur Squamous Epith Cells 0-5 SEEN, Ur Transition Epith Cell 0-5 SEEN 02/14/24 18:22: Ur Transition Epith Cell 0-5 SEEN, Ur Renal Epithelial Cell 0-5 SEEN 02/14/24 18:22: Ur Renal Epithelial Cell 0-5 SEEN, Urine Bacteria RARE 02/14/24 18:22: Urine Bacteria RARE, Urine Mucus 0 SEEN 02/14/24 18:22: Urine Mucus 0 SEEN 02/15/24 06:49: WBC 13.8 H, RBC 3.60 L, Hgb 11.3 L, Hct 35.7 L, MCV 99.2 H, MCH 31.4, MCHC 31.7 L, RDW Std Deviation 48.2 H, RDW Coeff of Dewey 13.2, Plt Count 292, MPV 10.6, Immature Gran % (Auto) 0.400, Neut % (Auto) 45.7 L, Lymph % (Auto) 43.8 H, Brooks % (Auto) 8.0, Eos % (Auto) 1.6, Baso % (Auto) 0.5, Absolute Neuts (auto) 6.3, Absolute Lymphs (auto) 6.04 H, Nucleated RBC % 0, Sodium 141, Potassium 3.3 L, Chloride 113 H, Carbon Dioxide 22.0, Anion Gap 6, BUN 19 H, Creatinine 1.62 H, Estim Creat Clear Calc 32.13, Est GFR (MDRD) Af Amer 40 L, EstGFR (MDRD) Non-Af 33 L, BUN/Creatinine Ratio 11.7, Glucose 85, Calcium 7.9 L, Phosphorus 3.5, Magnesium 1.3 L, Total Bilirubin 0.90, AST 13 L, ALT < 6 L, Alkaline Phosphatase 83, Total Protein 6.7, Albumin 2.3 L, Globulin 4.4 H, Albumin/Globulin Ratio 0.5 L Rhythm Strip Rhythm Strip: Sinus Tach Rate: 110 Ectopy: None Physical Exam Const alert, oriented x3, no apparent distress, average body habitus and well nourished Constitutional Narrative: Very pleasant, older, white female, sitting up in bed, daughter at bedside, patient appears comfortable and nontoxic at this time HEENT head/scalp atraumatic and moist oral mucous membranes Head and Scalp: normocephalic Resp normal respiratory effort, no retractions, no use of accessory muscles and clearto auscultation bilaterally Auscultation: Negative for rales, rhonchi or wheezes Cardio regular rate, regular rhythm, S1 normal heart sound, S2 normal heart sound, no murmurs, no rub, no gallops and no clicks GI normal to inspection, nondistended, normoactive bowel sounds, soft to palpation and non-tender GI Narrative: Bilateral nephrostomy tubes in place Extremity no clubbing, cyanosis or edema Extremity Narrative: Pedal pulses are 2+, radial pulses are 2+ Neuro oriented x3, moves all extremities and no focal motor deficits Speech: speech normal Psych affect normal Psych Narrative: Very pleasant, interacts appropriately Assessment & Plan Assessment/Plan (1) Pyelonephritis of right kidney: (2) UTI (urinary tract infection): (3) Sinus tachycardia: (4) Leukocytosis: QUALIFIERS: Leukocytosis type: unspecified Qualified Code(s): D72.829 - Elevated white blood cell count, unspecified (5) Hypokalemia: PLAN: Plan Right pyelonephritis that is/she complicated urinary tract infection -Will check renal ultrasound to verify pyelonephritis as this was only reported from out side hospital per patient -Urine culture/blood cultures have been sent -Continue cefepime -Patient does have previous history of multidrug-resistant organisms causing infection so may need infectious disease input depending on organism identification Leukocytosis -Trending down -Secondary to the above -Continue to monitor Sinus tachycardia -Likely related to acute infection -Resolved Hypokalemia -Patient is on chronic potassium supplementation -Will augment with 40 mill equivalents p.o. potassium today next-recheck in a.m. -Check a.m. 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 -History of AV fistula done in 2020 -Not currently on dialysis -Creatinine is stable -Recommend ongoing outpatient follow-up with nephrology History of hypertension -Patient only takes amlodipine 2.5 mg daily -Will restart and monitor blood pressure as she is stable despite infection Hyperlipidemia -Patient has history of anaphylaxis to statin so therefore does not take 1 -Continue outpatient follow-up Hypothyroidism -Continue home levothyroxine GERD -Continue home PPI Seasonal allergies -Continue intranasal ipratropium History of gout -Patient is not on any chronic medications -No signs of acute flare History of tobacco abuse -Remote -Encourage ongoing cessation DVT prophylaxis -Continue Lovenox but increase dose from 30 to 40 mg daily CODE STATUS -full code is verified on admission Charges/Coding Visit Charges Inpatient E&M: 88613 Subs Hosp L2 02/15/24 1422 <Electronically signed by Julianna Matthews DO> Cosigner Signature (if applicable): CC: ~ Signed [facility] Work Phone: 1(505) 345-670303-29-2024 Miscellaneous Notes* Telephone Encounter - Deepika Kong MA - 02/15/2024 8:20 AM EDT DTR Razia called [phone] She was admitted to [facility] for UTI. She wanted to know it you wanted her transferred here or just stay there for a few days. [facility] History and physical note Author Andres Fraser [facility] February 15, 2024 4:18am Note Date/Time February 14, 2024 7:1 8pm [facility] Medical Records Department [address] [place] [id number] H&P Exam - Hospitalist 02/14/24 1915 MR#: [id number] Acct: [id number] Name: TODD DELONG MONI Rep #:[id number] : 1950 73 From: Andres Holt DO PCP: Dr. Gerardo García MD Status:ADM I N Location: [address] HPI - General General Date of Admission: 02/14/24 Date of Service: 02/14/24 Chief Complaint: Fever, shaking chills and dysuria. HPI Narrative TODD DELONG, is a 73 F with a past medical history of essential hypertension, hyperlipidemia; with history of anaphylaxis to statins, hypothyroidism, chronic kidney disease stage IIIb-IV; with history of atriovenostomy for renal dialysis in September 2021, history of multidrug-resistant UTI with Pseudomonas requiring treatment with Merrem, history of bilateral hydronephrosis, history of MRSA, history of listed antibiotic allergies to clindamycin, TMP-SMX and Levaquin, history of tobacco abuse, history of COVID-pneumonia (2018), history of mild intermittent asthma, history of cervical cancer, history of atrophic vaginitis, history of admission here from August 02, 2023 to August 07, 2023 for UTI secondary to multidrug-resistant Pseudomonas complicated by hydronephrosis with ureteral stents placed by urology which required PICC line placement for IV antibiotics who presents to [facility] complaining of fever, shaking chills and dysuria. Ms. Delong reports her symptoms began approximately 1week prior to admission after her right ureteral stents were changed 1 week ago with a right nephrostomy tube having inadvertently been dislodged with it replaced by interventional radiology at [facility]. Apparently she was noted to have signs of right pyelonephritis and was given a single dose of IV antibiotics prior to being discharged. She then noticed the gradual onset of fever up to 100.1 ?F with shaking chills and significant nausea that were similar to her previous bouts of UTI with sepsis. She denies associated headache, abdominal pain, vomiting or diarrhea and she does not urinate. In theER she was noted to have cloudy grossly infected urine flowing from her right nephrostomy tube consistent with right pyelonephritis/complicated urinary tract infection with leukocytosis of 16.6 present on admission and fever (but with a normal lactate, nontoxic appearance and rapid improvement after initial round oftherapy which is doubtful for sepsis) in the setting of known CKD; stage IV and she was then admitted to the general medical floor for ongoing care for stay that is expected to be greater than 48 hours. [facility] Medical History Acute diarrhea LULY (acute kidney injury) Asthma Dunbar's palsy Bilateral hydronephrosis Bladder disease Blood disorder Bruising Cancer Cardiology follow-up encounter Cervical cancer Chronic kidney disease Chronic renal failure, stage 4 (severe) Dialysis patient Easy bruising Essential hypertension Former smoker Gout High anion gap metabolic acidosis History of biliary stent insertion History of cervical cancer History of Clostridium difficile infection History of COVID-19 History of irregular heartbeat History of renal disease Hx of cataract Hx of echocardiogram Hx of vertigo Hyperlipidemia Hypertension Hypokalemia Hyponatremia Kidney disease Leg cramps Leukocytosis Lymphocytosis Mild intermittent asthma MRSA infection Near syncope Problem with dialysis access Status post placement of implantable loop recorder (~03/29/20) Thyroid disease Urinary incontinence UTI (urinary tract infection) Wears dentures Home Medications albuterol sulfate 90 mcg/actuation aerosol inhaler (Ventolin HFA) 2 puff inhalation Q6H PRN Sob &/Or Wheezing 07/25/18 [History Last Taken 11/10/23] potassium chloride 20 mEq tablet,extended release(part/cryst) 20 meq PO DAILY supplement 09/01/20 [History Last Taken 02/14/24 10:00] amlodipine 2.5 mg tablet 2.5 mg PO DAILY BP #90 tabs 08/12/21 [Rx Last Taken 02/14/24 10:00] ipratropium bromide 42 mcg (0.06 %) nasal spray 2 spray intranasal DAILY allergie 11/23/21 [History Last Taken 02/14/24 10:00] pantoprazole 40 mg tablet,delayed release 40 mg PO DAILY GERD 03/27/23 [History Last Taken 02/14/24 10:00] cephalexin 500 mg capsule 500 mg PO TID infection 02/14/24 [History Last Taken 02/14/24 10:00] levothyroxine 25 mcg tablet 25 mcg PO DAILY thyroid 02/14/24 [History Last Taken 02/14/24 07:00] Allergy/AdvReac Type Severity Reaction Status Date / Time clindamycin Allergy Severe unsure of Verified 02/14/24 17:00 reaction pravastatin Allergy Severe Chest Verified 02/14/24 17:00 tightness procaine [From Novocain] Allergy Severe NEEDS Verified 02/14/24 17:00 FOLLOW-UP sulfamethoxazole Allergy Severe Shortness Verified 02/14/24 17:00 [From Bactrim] of breath trimethoprim [From Bactrim] Allergy Severe Shortness Verified 02/14/24 17:00 of breath levofloxacin [From Levaquin] Allergy UNSURE OF Verified 02/14/24 17:00 REACTION Eprgpbr-XCD-MpT Reductase Allergy Anaphylaxis Verified 02/14/24 17:00 Inhibitor methylprednisolone AdvReac Severe Pain in Verified 02/14/24 17:00 joints Family History Father , 32 yrs old CAD (coronary artery disease) History of coronary artery bypass surgery Mother Cancer Lung CA, Hx tobacco use. Surgical History History of arteriovenostomy for renal dialysis (~09/2021) History of cardiac catheterization (~01/08/18) History of cardiac catheterization History of cholecystectomy History of excision of mass History of hysterectomy History of loop recorder history of radium implant Hx of cystoscopy S/P arteriovenous (AV) fistula creation Social History household members: spouse and children number of children: 6 current occupational status: retired history of recent travel: No Smoking Status: Former smoker second hand exposure: No alcohol intake: never substance use type: does not use what type of physical activity do you participate in: walking saurabh/mu-ism: Non-Zoroastrianism/Independent seatbelt use: always do you feel safe at home: Yes additional social history: - Fernando STACIA PALOMO Narrative Review of systems: General: Patient admits to fever and shaking chills with documented fever of 100.1 ?F as per HPI. HENT: Denies headache, denies stuffy nose, denies sore throat EYES: Denies changes in vision or discharge from eyes. Resp: Denies cough, denies shortness of breath Cardiac: Denies chest pain or palpitations GI: Denies abdominal pain, denies changes in bowel, had some nausea but denies vomiting. : Patient does not urinate but was noted to have grossly infected urine comingfrom her right nephrostomy tube. Clear urine was noted from her left nephrostomy tube Extremity: Denies swelling Musculoskeletal: Feels somewhat generally weak and unwell but she denies arthralgias or myalgias. Neuro: Patient denies headache, paresthesias or focal neurologic deficits. Heme: Denies any bleeding or bruising Skin: Denies rashes Psychiatric: No complaints voiced related to uncontrolled depression or anxiety. Endocrine: No polyuria, polydipsia or polyphagia. The rest of the 14 point ROS was negative except for positives in HPI. Vital Signs Vital Signs Vital Signs: 02/14/24 17:00 02/14/24 17:44 02/14/24 17:47 Temperature 98.4 F 98.6 F Temperature Source Temporal Oral Pulse Rate 120 H Respiratory Rate 16 Blood Pressure 136/77 H Blood Pressure Mean 96 Pulse Ox 96 Oxygen Delivery Method Room Air Room Air 02/14/24 17:47 02/14/24 18:47 02/14/24 19:00 Temperature 98.6 F 98.6 F 98.6 F Temperature Source Oral Oral Oral Pulse Rate 104 H 115 H 104 H Respiratory Rate 18 22 H 14 Blood Pressure 132/77 H 125/54 H 124/49 H Blood Pressure Mean 95 77 74 Pulse Ox 96 95 96 Oxygen Delivery Method Room Air Room Air Room Air Weight Weight: 155 lb Body Mass Index (BMI) 23.6 Physical Exam Const alert, oriented x3, no apparent distress, average body habitus and healthy appearing General Appearance: cooperative HEENT normocephalic, head/scalp atraumatic and hearing grossly normal bilaterally HEENT Narrative: Mucous membranes dry. Eyes PERRL and EOMs intact bilaterally Neck no lymphadenopathy and supple Resp normal respiratory effort, no retractions, no use of accessory muscles and clearto auscultation bilaterally Cardio regular rate and regular rhythm Cardio Narrative: Tachycardia slightly over 100 bpm noted. GI normal to inspection, nondistended, normoactive bowel sounds, soft to palpation,non-tender and non-distended GI Narrative: Patient has bilateral nephrostomy tubes present. Extremity normal to inspection, full ROM and no clubbing, cyanosis or edema Skin Skin Narrative: Patient has no evidence of abscess or rash. Neuro oriented x3, CN's II-XII intact bilaterally, moves all extremities and no focal motor deficits Sensorium / Orientation: awake, alert, oriented to person, oriented to place andoriented to time Speech: speech normal Motor Exam: strength 5/5 throughout Psych affect normal Results Medical Records Data Attestation: I reviewed the patient's medical records Lab / Micro Data Attestation: I reviewed the patient's lab results. 02/14/24 17:39 02/14/24 17:39 Labs: Laboratory Results - last 24 hr 02/14/24 17:39: WBC 16.6 H, RBC 4.31, Hgb 13.9, Hct 41.8, MCV 97.0, MCH 32.3 H, MCHC 33.3, RDW Std Deviation 46.9 H, RDW Coeff of Dewey 13.2, Plt Count 376, MPV 10.5, Immature Gran % (Auto) 0.400, Neut % (Auto) 61.4, Lymph % (Auto) 30.3, Brooks % (Auto) 6.2, Eos % (Auto) 1.3, Baso % (Auto) 0.4, Absolute Neuts (auto) 10.2 H, Absolute Lymphs (auto) 5.01 H, Nucleated RBC % 0, Differential Comment SEE COMMENT, Atypical Lymphocytes 1+, Platelet Estimate ADEQUATE, RBC MorphologyN CHROM, Anisocytosis RARE, Macrocytosis RARE, Ovalocytes RARE, PT 13.4, INR 1.0, APTT 29.4, Sodium 138, Potassium 3.6, Chloride 106, Carbon Dioxide 25.0, Anion Gap 7, BUN 21 H, Creatinine 1.75 H, Estim Creat Clear Calc 29.74, Est GFR (MDRD) Af Amer 37 L, Est GFR (MDRD) Non-Af 30 L, BUN/Creatinine Ratio 12.0, Glucose 112 H, Lactic Acid 1.0, Calcium 8.4 L, Total Bilirubin 0.60, AST 12 L, ALT 11 L, Alkaline Phosphatase 104, Total Protein 8.0, Albumin 2.9 L, Globulin 5.1 H, Albumin/Globulin Ratio 0.6 L 02/14/24 18:22: Urine Color Yellow 02/14/24 18:22: Urine Color Yellow, Urine Clarity Cloudy 02/14/24 18:22: Urine Clarity Cloudy, Urine pH 6.5 02/14/24 18:22: Urine pH 7.0, Ur Specific Parks 1.010 02/14/24 18:22: Ur Specific Parks 1.005, Urine Protein 100 H 02/14/24 18:22: Urine Protein 30 H, Urine Glucose (UA) Normal 02/14/24 18:22: Urine Glucose (UA) Normal, Urine Ketones Negative 02/14/24 18:22: Urine Ketones Negative, Urine Occult Blood 250 H 02/14/24 18:22: Urine Occult Blood 150 H, Urine Nitrite Negative 02/14/24 18:22: Urine Nitrite Negative, Urine Bilirubin Negative 02/14/24 18:22: Urine Bilirubin Negative, Urine Urobilinogen Normal 02/14/24 18:22: Urine Urobilinogen Normal, Ur Leukocyte Esterase 500 H 02/14/24 18:22: Ur Leukocyte Esterase 500 H, Urine RBC 10-25 SEEN 02/14/24 18:22: Urine RBC 5-10 SEEN, Urine WBC >100 SEEN 02/14/24 18:22: Urine WBC >100 SEEN, Ur Squamous Epith Cells 0 SEEN 02/14/24 18:22: Ur Squamous Epith Cells 0-5 SEEN, Ur Transition Epith Cell 0-5 SEEN 02/14/24 18:22: Ur Transition Epith Cell 0-5 SEEN, Ur Renal Epithelial Cell 0-5 SEEN 02/14/24 18:22: Ur Renal Epithelial Cell 0-5 SEEN, Urine Bacteria RARE 02/14/24 18:22: Urine Bacteria RARE, Urine Mucus 0 SEEN 02/14/24 18:22: Urine Mucus 0 SEEN Rhythm Strip Rhythm Strip: Sinus Tach Rate: 110 Ectopy: None Assessment & Plan Assessment/Plan (1) Pyelonephritis of right kidney: (2) Complicated urinary tract infection: (3) Leukocytosis: QUALIFIERS: Leukocytosis type: unspecified Qualified Code(s): D72.829 - Elevated white blood cell count, unspecified PLAN: Plan 1. Right pyelonephritis/complicated urinary tract infection with leukocytosis of 16.6 present on admission in the setting of known previous bilateral hydronephrosis status post bilateral nephrostomy tube placement with recent inadvertent removal of the right nephrostomy tube replaced yesterday by IR physician at [facility] with a known history of listed antibiotic allergies to clindamycin, TMP-SMX and Levaquin - Admit to general medical floor. Continue IV cefepime begun in the ER and await culture and sensitivity data. Give Tylenol as needed pain or fever. Patient understands she is likely to growanother multidrug-resistant organism that may require PICC line placement to complete her course of antibiotics. Patient was not suspected to have sepsis attime of admission - likely due to her recent outpatient IV antibiotic treatment at [facility]. 2. Chronic kidney disease stage IIIb-IV; with history of atriovenostomy for renal dialysis in September 2021 complicated by frequent multidrug-resistant UTIsincluding Pseudomonas and MRSA complicating #1 - Noted. Volume resuscitate and follow strict I's and O's. Check BMP daily to ensure continued stability with above treatment. 3. History of admission here from August 02, 2023 to August 07, 2023 and from November 10, 2023 to November 13, 2023 for UTI secondary to multidrug-resistant Pseudomonas complicated by hydronephrosis with ureteral stents placed by urology which required PICC line placement for IV antibiotics - Noted. 4. Essential hypertension - Hold scheduled antihypertensives until infection noted above is neutralized. Give IV hydralazine as needed for systolic blood pressure greater than 160 mmHg. 5. Hyperlipidemia; with history of anaphylaxis to statins - Noted. We will continue to avoid statin agents. 6. Hypothyroidism - Continue Synthroid as previous. 7. History of tobacco abuse - Noted. 8. History of COVID-pneumonia (2019) - Noted. 9. History of mild intermittent asthma - Stable at this time with no evidence of flare. Continue as needed nebulizers. 10. History of cervical cancer - Noted. 11. History of atrophic vaginitis - Noted. 12. Chronic Gout - Stable with no evidence of acute flare. 13. DVT prophylaxis - Give renally dosed Lovenox 30 mg subcu daily. Total time: Approximately 55 minutes. Charges/Coding Visit Charges Inpatient E&M: 91293 Init Hosp L2 02/15/24 0418 <Electronically signed by Andres Maurer DO> Cosigner Signature (if applicable): CC: Dr. Andres Maurer DO; Dr. Gerardo García MD~ Signed [facility] Work Phone: [phone] Discharge summary Author Altaf Villa [facility] February 14, 2024 7:24pm Note Date/Time February 14, 2024 5:4 6pm [facility] Medical Records Department [address] [place] [id number] Emergency Department Summary 02/14/24 MR#: [id number] Acct: [id number] Name: TODD DELONG MONI Rep #:[id number] : 1950 [id number] From: Altaf Villa MD PCP: Dr. Gerardo García MD Status:REG E R Location: ED HPI History of Present Illness Chief Complaint: Complaint Detail of Chief Complaint: Shaking chills with documented temperature of 100.1 concern for UTI Informant: patient and spouse/S.O. Onset/Context/Timing Onset: Today and Hours Context: Sudden Onset Timing: Intermittent Quality: Shaking chills Location: Generalized Current Severity: Gone Maximum Severity: Moderate Worsened by: Concern for urinary tract infection Relieved by: Nothing Associated Symptoms Associated Symptoms: Nausea Narrative Narrative: Patient is a 73-year-old woman with recurrent urinary tract infections. She hadher right nephrostomy tube reinserted because it fell out. This was performed by IR at [facility]. Her ureteral stents were changed 1 week ago. She also has a left nephrostomy tube. Review of prior records indicates patient hadmultiple admissions the end of last year for urosepsis. She denies headache, visual, ocular auditory symptoms. She denies rhinorrhea, congestion, postnasal drainage sore throat. She denies cough or shortness of breath. She denies abdominal pain vomiting or diarrhea. She does endorse nausea. She does not urinate. She denies gynecologic symptoms. She does have history of allergy to sulfa and levofloxacin. She also has a reaction to clindamycin. She is uncertain what the reaction was. She informed that the radiologist did administer dose of antibiotics yesterday. She is uncertain what she was given. There is no records on [facility]. Prior similar symptoms: Yes Recent Illness/Hospitalization: No PFSH PFS Medical History Acute diarrhea LULY (acute kidney injury) Asthma Dunbar's palsy Bilateral hydronephrosis Bladder disease Blood disorder Bruising Cancer Cardiology follow-up encounter Cervical cancer Chronic kidney disease Chronic renal failure, stage 4 (severe) Dialysis patient Easy bruising Essential hypertension Former smoker Gout High anion gap metabolic acidosis History of biliary stent insertion History of cervical cancer History of Clostridium difficile infection History of COVID-19 History of irregular heartbeat History of renal disease Hx of cataract Hx of echocardiogram Hx of vertigo Hyperlipidemia Hypertension Hypokalemia Hyponatremia Kidney disease Leg cramps Leukocytosis Lymphocytosis Mild intermittent asthma MRSA infection Near syncope Problem with dialysis access Status post placement of implantable loop recorder (~03/29/20) Thyroid disease Urinary incontinence UTI (urinary tract infection) Wears dentures Home Medications albuterol sulfate 90 mcg/actuation aerosol inhaler (Ventolin HFA) 2 puff inhalation Q6H PRN Sob &/Or Wheezing 07/25/18 [History Last Taken 11/10/23] potassium chloride 20 mEq tablet,extended release(part/cryst) 20 meq PO DAILY supplement 09/01/20 [History Last Taken 11/10/23] amlodipine 2.5 mg tablet 2.5 mg PO DAILY BP #90 tabs 08/12/21 [Rx Last Taken 11/10/23] ipratropium bromide 42 mcg (0.06 %) nasal spray 2 spray intranasal DAILY allergie 11/23/21 [History Last Taken 11/10/23] pantoprazole 40 mg tablet,delayed release 40 mg PO DAILY GERD 03/27/23 [History Last Taken 11/10/23] nitrofurantoin monohydrate/macrocrystals 100 mg capsule (Macrobid) 100 mg PO Q12H 5 days #10 caps 11/13/23 [Rx Last Taken Unknown] Allergy/AdvReac Type Severity Reaction Status Date / Time clindamycin Allergy Severe unsure of Verified 02/14/24 17:00 reaction pravastatin Allergy Severe Chest Verified 02/14/24 17:00 tightness procaine [From Novocain] Allergy Severe NEEDS Verified 02/14/24 17:00 FOLLOW-UP sulfamethoxazole Allergy Severe Shortness Verified 02/14/24 17:00 [From Bactrim] of breath trimethoprim [From Bactrim] Allergy Severe Shortness Verified 02/14/24 17:00 of breath levofloxacin [From Levaquin] Allergy UNSURE OF Verified 02/14/24 17:00 REACTION Fakrrqb-IKE-WeH Reductase Allergy Anaphylaxis Verified 02/14/24 17:00 Inhibitor methylprednisolone AdvReac Severe Pain in Verified 02/14/24 17:00 joints Family History Father , 32 yrs old CAD (coronary artery disease) History of coronary artery bypass surgery Mother Cancer Lung CA, Hx tobacco use. Surgical History History of arteriovenostomy for renal dialysis (~09/2021) History of cardiac catheterization (~01/08/18) History of cardiac catheterization History of cholecystectomy History of excision of mass History of hysterectomy History of loop recorder history of radium implant Hx of cystoscopy S/P arteriovenous (AV) fistula creation Social History household members: spouse and children number of children: 6 current occupational status: retired history of recent travel: No Smoking Status: Former smoker second hand exposure: No alcohol intake: never substance use type: does not use what type of physical activity do you participate in: walking saurabh/mu-ism: Non-Zoroastrianism/Independent seatbelt use: always do you feel safe at home: Yes additional social history: - Fernando PALOMO ROS ED Constitutional Constitutional ED: Reports chills and fever(s); Denies sweats or weight loss Eyes Eyes: Denies blurry vision, change in vision or diplopia ENT ENT ED: Denies ear pain, rhinorrhea or sore throat Cardiovascular Cardiovascular: Denies chest pain, palpitations or racing heartbeat Respiratory/Chest Respiratory/Chest: Denies cough, dyspnea or dyspnea on exertion Gastrointestinal Gastrointestinal: Reports nausea; Denies abdominal pain, diarrhea or vomiting Genitourinary Genitourinary ED: Reports other Details: Patient does not urinate. She has right and left nephrostomy tubes. Musculoskeletal Musculoskeletal: Denies arthralgias, back pain or myalgias Integumentary Denies rash Neurologic Neurologic: Reports weakness; Denies headache(s) or paresthesias Hematologic/Lymphatic Hematologic/Lymphatic: Reports systems reviewed and no addt'l complaints, exceptas documented EXAM Physical Exam Const Vital Signs: 02/14/24 17:00 02/14/24 17:44 02/14/24 17:47 Temperature 98.4 F 98.6 F Temperature Source Temporal Oral Pulse Rate 120 H Respiratory Rate 16 Blood Pressure 136/77 H Blood Pressure Mean 96 Pulse Ox 96 Oxygen Delivery Method Room Air Room Air 02/14/24 17:47 02/14/24 18:47 02/14/24 19:00 Temperature 98.6 F 98.6 F 98.6 F Temperature Source Oral Oral Oral Pulse Rate 104 H 115 H 104 H Respiratory Rate 18 22 H 14 Blood Pressure 132/77 H 125/54 H 124/49 H Blood Pressure Mean 95 77 74 Pulse Ox 96 95 96 Oxygen Delivery Method Room Air Room Air Room Air Positive well nourished and well developed General Appearance ED: well developed, NAD and pallor; Negative for cyanotic or diaphoretic HEENT Reports dry mucous membranes HEENT Narrative: Head is atraumatic and normocephalic. Ears normal. Nares patent. Posterior pharynx is normal. Mouth ED: Yes dry mucous membranes Mouth: dry mucous membranes Eyes PERRL and EOMs intact bilaterally General Eye ED: Negative for pale conjunctiva Neck no lymphadenopathy, supple and no JVD Chest Wall inspection of chest normal and palpation of chest normal Resp normal respiratory effort and clear to auscultation bilaterally Cardio regular rate, regular rhythm, S1 normal heart sound, S2 normal heart sound and no murmurs GI normal to inspection, nondistended, normoactive bowel sounds, non-tender, non-distended and no masses; Negative for hepatosplenomegaly Palpation: soft Narrative: Nephrostomy tubes noted. Extremity normal to inspection General Extremety ED: Negative for edema General Extremity: Negative for edema Neuro oriented x3 and CN's II-XII intact bilaterally Sensorium / Orientation: alert Psych mental status grossly normal Skin no rashes or lesions noted and no wounds General Skin Exam: pallor; Negative for jaundice MDM MDM MDM Narrative Medical decision making narrative: Concern patient may have sepsis due to recent nephrostomy tube placement. With patient complained of chills and fever sepsis order set was entered. Urinalysisand urine cultures from the right nephrostomy tube was obtained/ordered. The nurse was informed that urine is needed from both the right and left nephrostomytube. Based on her allergies and concern that this is urologic in origin antibiotics were ordered per the sepsis treatment order set. She received 2 g of cefepime. Since she has no abnormal auscultatory findings of her lungs and no respiratory symptoms chest x- ray was not obtained. History & Record Review Additional record(s) reviewed:: Prior inpatient record (Multiple admissions for urosepsis and kidney disease in 2022.), Prior ED visit and Prior labs Lab Data Attestation: I reviewed the patient's lab results. Lab results narrative: White count is elevated 16.6 thousand. H&H is unremarkable. There is no shift. Comprehensive metabolic panel is remarkable for BUN/creatinine of 21 and 1.75 which is patient's baseline. Lactate is normal. Transaminases low. Labs: Laboratory Results - last 24 hr 02/14/24 02/14/24 02/14/24 17:39 18:22 18:22 WBC 16.6 H RBC 4.31 Hgb 13.9 Hct 41.8 MCV 97.0 MCH 32.3 H MCHC 33.3 RDW Std Deviation 46.9 H RDW Coeff of Dewey 13.2 Plt Count 376 MPV 10.5 Immature Gran % (Auto) 0.400 Neut % (Auto) 61.4 Lymph % (Auto) 30.3 Brooks % (Auto) 6.2 Eos % (Auto) 1.3 Baso % (Auto) 0.4 Absolute Neuts (auto) 10.2 H Absolute Lymphs (auto) 5.01 H Nucleated RBC % 0 Differential Comment SEE COMMENT Atypical Lymphocytes 1+ Platelet Estimate ADEQUATE RBC Morphology N CHROM Anisocytosis RARE Macrocytosis RARE Ovalocytes RARE PT 13.4 INR 1.0 APTT 29.4 Sodium 138 Potassium 3.6 Chloride 106 Carbon Dioxide 25.0 Anion Gap 7 BUN 21 H Creatinine 1.75 H Estim Creat Clear Calc 29.74 Est GFR (MDRD) Af Amer 37 L Est GFR (MDRD) Non-Af 30 L BUN/Creatinine Ratio 12.0 Glucose 112 H Lactic Acid 1.0 Calcium 8.4 L Total Bilirubin 0.60 AST 12 L ALT 11 L Alkaline Phosphatase 104 Total Protein 8.0 Albumin 2.9 L Globulin 5.1 H Albumin/Globulin Ratio 0.6 L Urine Color Yellow Yellow Urine Clarity Cloudy Urine pH Ur Specific Parks Urine Protein Urine Glucose (UA) Urine Ketones Urine Occult Blood Urine Nitrite Urine Bilirubin Urine Urobilinogen Ur Leukocyte Esterase Urine RBC Urine WBC Ur Squamous Epith Cells Ur Transition Epith Cell Ur Renal Epithelial Cell Urine Bacteria Urine Mucus 02/14/24 02/14/24 02/14/24 18:22 18:22 18:22 WBC RBC Hgb Hct MCV MCH MCHC RDW Std Deviation RDW Coeff of [place] Plt Count MPV Immature Gran % (Auto) Neut % (Auto) Lymph % (Auto) Brooks % (Auto) Eos % (Auto) Baso % (Auto) Absolute Neuts (auto) Absolute Lymphs (auto) Nucleated RBC % Differential Comment Atypical Lymphocytes Platelet Estimate RBC Morphology Anisocytosis Macrocytosis Ovalocytes PT INR APTT Sodium Potassium Chloride Carbon Dioxide Anion Gap BUN Creatinine Estim Creat Clear Calc Est GFR (MDRD) Af Amer Est GFR (MDRD) Non-Af BUN/Creatinine Ratio Glucose Lactic Acid Calcium Total Bilirubin AST ALT Alkaline Phosphatase Total Protein Albumin Globulin Albumin/Globulin Ratio Urine Color Urine Clarity Cloudy Urine pH 6.5 7.0 Ur Specific [place] 1.010 1.005 Urine Protein 100 H Urine Glucose (UA) Urine Ketones Urine Occult Blood Urine Nitrite Urine Bilirubin Urine Urobilinogen Ur Leukocyte Esterase Urine RBC Urine WBC Ur Squamous Epith Cells Ur Transition Epith Cell Ur Renal Epithelial Cell Urine Bacteria Urine Mucus 02/14/24 02/14/24 02/14/24 18:22 18:22 18:22 WBC RBC Hgb Hct MCV MCH MCHC RDW Std Deviation RDW Coeff of [place]wey Plt Count MPV Immature Gran % (Auto) Neut % (Auto) Lymph % (Auto) Brooks % (Auto) Eos % (Auto) Baso % (Auto) Absolute Neuts (auto) Absolute Lymphs (auto) Nucleated RBC % Differential Comment Atypical Lymphocytes Platelet Estimate RBC Morphology Anisocytosis Macrocytosis Ovalocytes PT INR APTT Sodium Potassium Chloride Carbon Dioxide Anion Gap BUN Creatinine Estim Creat Clear Calc Est GFR (MDRD) Af Amer Est GFR (MDRD) Non-Af BUN/Creatinine Ratio Glucose Lactic Acid Calcium Total Bilirubin AST ALT Alkaline Phosphatase Total Protein Albumin Globulin Albumin/Globulin Ratio Urine Color Urine Clarity Urine pH Ur Specific Parks Urine Protein 30 H Urine Glucose (UA) Normal Normal Urine Ketones Negative Negative Urine Occult Blood 250 H Urine Nitrite Urine Bilirubin Urine Urobilinogen Ur Leukocyte Esterase Urine RBC Urine WBC Ur Squamous Epith Cells Ur Transition Epith Cell Ur Renal Epithelial Cell Urine Bacteria Urine Mucus 02/14/24 02/14/24 02/14/24 18:22 18:22 18:22 WBC RBC Hgb Hct MCV MCH MCHC RDW Std Deviation RDW Coeff of [place]wey Plt Count MPV Immature Gran % (Auto) Neut % (Auto) Lymph % (Auto) Brooks % (Auto) Eos % (Auto) Baso % (Auto) Absolute Neuts (auto) Absolute Lymphs (auto) Nucleated RBC % Differential Comment Atypical Lymphocytes Platelet Estimate RBC Morphology Anisocytosis Macrocytosis Ovalocytes PT INR APTT Sodium Potassium Chloride Carbon Dioxide Anion Gap BUN Creatinine Estim Creat Clear Calc Est GFR (MDRD) Af Amer Est GFR (MDRD) Non-Af BUN/Creatinine Ratio Glucose Lactic Acid Calcium Total Bilirubin AST ALT Alkaline Phosphatase Total Protein Albumin Globulin Albumin/Globulin Ratio Urine Color Urine Clarity Urine pH Ur Specific [place] Urine Protein Urine Glucose (UA) Urine Ketones Urine Occult Blood 150 H Urine Nitrite Negative Negative Urine Bilirubin Negative Negative Urine Urobilinogen Normal Ur Leukocyte Esterase Urine RBC Urine WBC Ur Squamous Epith Cells Ur Transition Epith Cell Ur Renal Epithelial Cell Urine Bacteria Urine Mucus 02/14/24 02/14/24 02/14/24 18:22 18:22 18:22 WBC RBC Hgb Hct MCV MCH MCHC RDW Std Deviation RDW Coeff of [place]wey Plt Count MPV Immature Gran % (Auto) Neut % (Auto) Lymph % (Auto) Brooks % (Auto) Eos % (Auto) Baso % (Auto) Absolute Neuts (auto) Absolute Lymphs (auto) Nucleated RBC % Differential Comment Atypical Lymphocytes Platelet Estimate RBC Morphology Anisocytosis Macrocytosis Ovalocytes PT INR APTT Sodium Potassium Chloride Carbon Dioxide Anion Gap BUN Creatinine Estim Creat Clear Calc Est GFR (MDRD) Af Amer Est GFR (MDRD) Non-Af BUN/Creatinine Ratio Glucose Lactic Acid Calcium Total Bilirubin AST ALT Alkaline Phosphatase Total Protein Albumin Globulin Albumin/Globulin Ratio Urine Color Urine Clarity Urine pH Ur Specific Parks Urine Protein Urine Glucose (UA) Urine Ketones Urine Occult Blood Urine Nitrite Urine Bilirubin Urine Urobilinogen Normal Ur Leukocyte Esterase 500 H 500 H Urine RBC 10-25 SEEN 5-10 SEEN Urine WBC >100 SEEN Ur Squamous Epith Cells Ur Transition Epith Cell Ur Renal Epithelial Cell Urine Bacteria Urine Mucus 02/14/24 02/14/24 02/14/24 18:22 18:22 18:22 WBC RBC Hgb Hct MCV MCH MCHC RDW Std Deviation RDW Coeff of [place]wey Plt Count MPV Immature Gran % (Auto) Neut % (Auto) Lymph % (Auto) Brooks % (Auto) Eos % (Auto) Baso % (Auto) Absolute Neuts (auto) Absolute Lymphs (auto) Nucleated RBC % Differential Comment Atypical Lymphocytes Platelet Estimate RBC Morphology Anisocytosis Macrocytosis Ovalocytes PT INR APTT Sodium Potassium Chloride Carbon Dioxide Anion Gap BUN Creatinine Estim Creat Clear Calc Est GFR (MDRD) Af Amer Est GFR (MDRD) Non-Af BUN/Creatinine Ratio Glucose Lactic Acid Calcium Total Bilirubin AST ALT Alkaline Phosphatase Total Protein Albumin Globulin Albumin/Globulin Ratio Urine Color Urine Clarity Urine pH Ur Specific [place] Urine Protein Urine Glucose (UA) Urine Ketones Urine Occult Blood Urine Nitrite Urine Bilirubin Urine Urobilinogen Ur Leukocyte Esterase Urine RBC Urine WBC >100 SEEN Ur Squamous Epith Cells 0 SEEN 0-5 SEEN Ur Transition Epith Cell 0-5 SEEN 0-5 SEEN Ur Renal Epithelial Cell 0-5 SEEN Urine Bacteria Urine Mucus 02/14/24 02/14/24 02/14/24 18:22 18:22 18:22 WBC RBC Hgb Hct MCV MCH MCHC RDW Std Deviation RDW Coeff of Dewey Plt Count MPV Immature Gran % (Auto) Neut % (Auto) Lymph % (Auto) Brooks % (Auto) Eos % (Auto) Baso % (Auto) Absolute Neuts (auto) Absolute Lymphs (auto) Nucleated RBC % Differential Comment Atypical Lymphocytes Platelet Estimate RBC Morphology Anisocytosis Macrocytosis Ovalocytes PT INR APTT Sodium Potassium Chloride Carbon Dioxide Anion Gap BUN Creatinine Estim Creat Clear Calc Est GFR (MDRD) Af Amer Est GFR (MDRD) Non-Af BUN/Creatinine Ratio Glucose Lactic Acid Calcium Total Bilirubin AST ALT Alkaline Phosphatase Total Protein Albumin Globulin Albumin/Globulin Ratio Urine Color Urine Clarity Urine pH Ur Specific Parks Urine Protein Urine Glucose (UA) Urine Ketones Urine Occult Blood Urine Nitrite Urine Bilirubin Urine Urobilinogen Ur Leukocyte Esterase Urine RBC Urine WBC Ur Squamous Epith Cells Ur Transition Epith Cell Ur Renal Epithelial Cell 0-5 SEEN Urine Bacteria RARE RARE Urine Mucus 0 SEEN 0 SEEN Urinalysis reveals pyuria right and left nephrostomy tube. There is bacteria noted on 1 side. In light of elevated temperature, white count will contact hospitalist for admission. Rhythm Strip Rhythm Strip: Sinus Tach Rate: 110 Ectopy: None EKG Initial EKG: Attestation: I personally reviewed and interpreted this EKG as follows: Interpretation: Sinus Tachycardia (Rate is 108. The EKG is normal other than sinus tach. [place] interval is 148 ms. QS duration 86 ms. QT duration 3 and 36 ms. [place] is normal.) Treatment and Re-Evaluation :: Patient was informed of her laboratory results. Patient prefers to be admitted to [facility]. Discharge Plan Dx/Rx/DC Orders Clinical Impression: Complicated urinary tract infection, Bilateral hydronephrosis, Chronic renal failure, stage 4 (severe), Essential hypertension, Hyperlipidemia, Leukocytosis,Sinus tachycardia Disposition Disposition: Acute Care Hospital [facility] What to do if you have Problems For any increased pain, shortness of breath, bleeding, nausea or vomiting, chestpain, or any unexpected problems, contact your Primary Care Provider. Call [facility] ([phone]) or report to the closest Emergency Room. Call 911 if necessary. 02/14/241923 <Electronically signed by Altaf Villa MD> Cosigner Signature (if applicable): CC: Dr. Gerardo García MD ~ Signed [facility] Work Phone: [phone]) 980-957603-28-2024 Discharge summary Author Altaf Villa [facility] February 14, 2024 7:24pm Note Date/Time February 14, 2024 5:4 6pm [facility] Medical Records Department [address] [place] [address] Emergency Department Summary 02/14/24 MR#: [id number] Acct: [id number] Name: TODD DELONG Rep #:[id number] : 1950 73 From: Altaf Villa MD PCP: Dr. Gerardo García MD Status:REG E R Location: ED HPI History of Present Illness Chief Complaint: Complaint Detail of Chief Complaint: Shaking chills with documented temperature of 100.1 concern for UTI Informant: patient and spouse/S.O. Onset/Context/Timing Onset: Today and Hours Context: Sudden Onset Timing: Intermittent Quality: Shaking chills Location: Generalized Current Severity: Gone Maximum Severity: Moderate Worsened by: Concern for urinary tract infection Relieved by: Nothing Associated Symptoms Associated Symptoms: Nausea Narrative Narrative: Patient is a 73-year-old woman with recurrent urinary tract infections. She hadher right nephrostomy tube reinserted because it fell out. This was performed by IR at [facility]. Her ureteral stents were changed 1 week ago. She also has a left nephrostomy tube. Review of prior records indicates patient hadmultiple admissions the end of last year for urosepsis. She denies headache, visual, ocular auditory symptoms. She denies rhinorrhea, congestion, postnasal drainage sore throat. She denies cough or shortness of breath. She denies abdominal pain vomiting or diarrhea. She does endorse nausea. She does not urinate. She denies gynecologic symptoms. She does have history of allergy to sulfa and levofloxacin. She also has a reaction to clindamycin. She is uncertain what the reaction was. She informed that the radiologist did administer dose of antibiotics yesterday. She is uncertain what she was given. There is no records on [facility]. Prior similar symptoms: Yes Recent Illness/Hospitalization: No PFSH PFSH Medical History Acute diarrhea LULY (acute kidney injury) Asthma Dunbar's palsy Bilateral hydronephrosis Bladder disease Blood disorder Bruising Cancer Cardiology follow-up encounter Cervical cancer Chronic kidney disease Chronic renal failure, stage 4 (severe) Dialysis patient Easy bruising Essential hypertension Former smoker Gout High anion gap metabolic acidosis History of biliary stent insertion History of cervical cancer History of Clostridium difficile infection History of COVID-19 History of irregular heartbeat History of renal disease Hx of cataract Hx of echocardiogram Hx of vertigo Hyperlipidemia Hypertension Hypokalemia Hyponatremia Kidney disease Leg cramps Leukocytosis Lymphocytosis Mild intermittent asthma MRSA infection Near syncope Problem with dialysis access Status post placement of implantable loop recorder (~03/29/20) Thyroid disease Urinary incontinence UTI (urinary tract infection) Wears dentures Home Medications albuterol sulfate 90 mcg/actuation aerosol inhaler (Ventolin HFA) 2 puff inhalation Q6H PRN Sob &/Or Wheezing 07/25/18 [History Last Taken 11/10/23] potassium chloride 20 mEq tablet,extended release(part/cryst) 20 meq PO DAILY supplement 09/01/20 [History Last Taken 11/10/23] amlodipine 2.5 mg tablet 2.5 mg PO DAILY BP #90 tabs 08/12/21 [Rx Last Taken 11/10/23] ipratropium bromide 42 mcg (0.06 %) nasal spray 2 spray intranasal DAILY allergie 11/23/21 [History Last Taken 11/10/23] pantoprazole 40 mg tablet,delayed release 40 mg PO DAILY GERD 03/27/23 [History Last Taken 11/10/23] nitrofurantoin monohydrate/macrocrystals 100 mg capsule (Macrobid) 100 mg PO Q12H 5 days #10 caps 11/13/23 [Rx Last Taken Unknown] Allergy/AdvReac Type Severity Reaction Status Date / Time clindamycin Allergy Severe unsure of Verified 02/14/24 17:00 reaction pravastatin Allergy Severe Chest Verified 02/14/24 17:00 tightness procaine [From Novocain] Allergy Severe NEEDS Verified 02/14/24 17:00 FOLLOW-UP sulfamethoxazole Allergy Severe Shortness Verified 02/14/24 17:00 [From Bactrim] of breath trimethoprim [From Bactrim] Allergy Severe Shortness Verified 02/14/24 17:00 of breath levofloxacin [From Levaquin] Allergy UNSURE OF Verified 02/14/24 17:00 REACTION [id number] Reductase Allergy Anaphylaxis Verified 02/14/24 17:00 Inhibitor methylprednisolone AdvReac Severe Pain in Verified 02/14/24 17:00 joints Family History Father , 32 yrs old CAD (coronary artery disease) History of coronary artery bypass surgery Mother Cancer Lung CA, Hx tobacco use. Surgical History History of arteriovenostomy for renal dialysis (~09/2021) History of cardiac catheterization (~01/08/18) History of cardiac catheterization History of cholecystectomy History of excision of mass History of hysterectomy History of loop recorder history of radium implant Hx of cystoscopy S/P arteriovenous (AV) fistula creation Social History household members: spouse and children number of children: 6 current occupational status: retired history of recent travel: No Smoking Status: Former smoker second hand exposure: No alcohol intake: never substance use type: does not use what type of physical activity do you participate in: walking saurabh/mu-ism: Non-Zoroastrianism/Independent seatbelt use: always do you feel safe at home: Yes additional social history: - [place] ED Constitutional Constitutional ED: Reports chills and fever(s); Denies sweats or weight loss Eyes Eyes: Denies blurry vision, change in vision or diplopia ENT ENT ED: Denies ear pain, rhinorrhea or sore throat Cardiovascular Cardiovascular: Denies chest pain, palpitations or racing heartbeat Respiratory/Chest Respiratory/Chest: Denies cough, dyspnea or dyspnea on exertion Gastrointestinal Gastrointestinal: Reports nausea; Denies abdominal pain, diarrhea or vomiting Genitourinary Genitourinary ED: Reports other Details: Patient does not urinate. She has right and left nephrostomy tubes. Musculoskeletal Musculoskeletal: Denies arthralgias, back pain or myalgias Integumentary Denies rash Neurologic Neurologic: Reports weakness; Denies headache(s) or paresthesias Hematologic/Lymphatic Hematologic/Lymphatic: Reports systems reviewed and no addt'l complaints, exceptas documented EXAM Physical Exam Const Vital Signs: 02/14/24 17:00 02/14/24 17:44 02/14/24 17:47 Temperature 98.4 F 98.6 F Temperature Source Temporal Oral Pulse Rate 120 H Respiratory Rate 16 Blood Pressure 136/77 H Blood Pressure Mean 96 Pulse Ox 96 Oxygen Delivery Method Room Air Room Air 02/14/24 17:47 02/14/24 18:47 02/14/24 19:00 Temperature 98.6 F 98.6 F 98.6 F Temperature Source Oral Oral Oral Pulse Rate 104 H 115 H 104 H Respiratory Rate 18 22 H 14 Blood Pressure 132/77 H 125/54 H 124/49 H Blood Pressure Mean 95 77 74 Pulse Ox 96 95 96 Oxygen Delivery Method Room Air Room Air Room Air Positive well nourished and well developed General Appearance ED: well developed, NAD and pallor; Negative for cyanotic or diaphoretic HEENT Reports dry mucous membranes HEENT Narrative: Head is atraumatic and normocephalic. Ears normal. Nares patent. Posterior pharynx is normal. Mouth ED: Yes dry mucous membranes Mouth: dry mucous membranes Eyes PERRL and EOMs intact bilaterally General Eye ED: Negative for pale conjunctiva Neck no lymphadenopathy, supple and no JVD Chest Wall inspection of chest normal and palpation of chest normal Resp normal respiratory effort and clear to auscultation bilaterally Cardio regular rate, regular rhythm, S1 normal heart sound, S2 normal heart sound and no murmurs GI normal to inspection, nondistended, normoactive bowel sounds, non-tender, non-distended and no masses; Negative for hepatosplenomegaly Palpation: soft Narrative: Nephrostomy tubes noted. Extremity normal to inspection General Extremety ED: Negative for edema General Extremity: Negative for edema Neuro oriented x3 and CN's II-XII intact bilaterally Sensorium / Orientation: alert Psych mental status grossly normal Skin no rashes or lesions noted and no wounds General Skin Exam: pallor; Negative for jaundice MDM MDM MDM Narrative Medical decision making narrative: Concern patient may have sepsis due to recent nephrostomy tube placement. With patient complained of chills and fever sepsis order set was entered. Urinalysisand urine cultures from the right nephrostomy tube was obtained/ordered. The nurse was informed that urine is needed from both the right and left nephrostomytube. Based on her allergies and concern that this is urologic in origin antibiotics were ordered per the sepsis treatment order set. She received 2 g of cefepime. Since she has no abnormal auscultatory findings of her lungs and no respiratory symptoms chest x- ray was not obtained. History & Record Review Additional record(s) reviewed:: Prior inpatient record (Multiple admissions for urosepsis and kidney disease in 2022.), Prior ED visit and Prior labs Lab Data Attestation: I reviewed the patient's lab results. Lab results narrative: White count is elevated 16.6 thousand. H&H is unremarkable. There is no shift. Comprehensive metabolic panel is remarkable for BUN/creatinine of 21 and 1.75 which is patient's baseline. Lactate is normal. Transaminases low. Labs: Laboratory Results - last 24 hr 02/14/24 02/14/24 02/14/24 17:39 18:22 18:22 WBC 16.6 H RBC 4.31 Hgb 13.9 Hct 41.8 MCV 97.0 MCH 32.3 H MCHC 33.3 RDW Std Deviation 46.9 H RDW Coeff of Dewey 13.2 Plt Count 376 MPV 10.5 Immature Gran % (Auto) 0.400 Neut % (Auto) 61.4 Lymph % (Auto) 30.3 Brooks % (Auto) 6.2 Eos % (Auto) 1.3 Baso % (Auto) 0.4 Absolute Neuts (auto) 10.2 H Absolute Lymphs (auto) 5.01 H Nucleated RBC % 0 Differential Comment SEE COMMENT Atypical Lymphocytes 1+ Platelet Estimate ADEQUATE RBC Morphology N CHROM Anisocytosis RARE Macrocytosis RARE Ovalocytes RARE PT 13.4 INR 1.0 APTT 29.4 Sodium 138 Potassium 3.6 Chloride 106 Carbon Dioxide 25.0 Anion Gap 7 BUN 21 H Creatinine 1.75 H Estim Creat Clear Calc 29.74 Est GFR (MDRD) Af Amer 37 L Est GFR (MDRD) Non-Af 30 L BUN/Creatinine Ratio 12.0 Glucose 112 H Lactic Acid 1.0 Calcium 8.4 L Total Bilirubin 0.60 AST 12 L ALT 11 L Alkaline Phosphatase 104 Total Protein 8.0 Albumin 2.9 L Globulin 5.1 H Albumin/Globulin Ratio 0.6 L Urine Color Yellow Yellow Urine Clarity Cloudy Urine pH Ur Specific Parks Urine Protein Urine Glucose (UA) Urine Ketones Urine Occult Blood Urine Nitrite Urine Bilirubin Urine Urobilinogen Ur Leukocyte Esterase Urine RBC Urine WBC Ur Squamous Epith Cells Ur Transition Epith Cell Ur Renal Epithelial Cell Urine Bacteria Urine Mucus 02/14/24 02/14/24 02/14/24 18:22 18:22 18:22 WBC RBC Hgb Hct MCV MCH MCHC RDW Std Deviation RDW Coeff of [place] Plt Count MPV Immature Gran % (Auto) Neut % (Auto) Lymph % (Auto) Brooks % (Auto) Eos % (Auto) Baso % (Auto) Absolute Neuts (auto) Absolute Lymphs (auto) Nucleated RBC % Differential Comment Atypical Lymphocytes Platelet Estimate RBC Morphology Anisocytosis Macrocytosis Ovalocytes PT INR APTT Sodium Potassium Chloride Carbon Dioxide Anion Gap BUN Creatinine Estim Creat Clear Calc Est GFR (MDRD) Af Amer Est GFR (MDRD) Non-Af BUN/Creatinine Ratio Glucose Lactic Acid Calcium Total Bilirubin AST ALT Alkaline Phosphatase Total Protein Albumin Globulin Albumin/Globulin Ratio Urine Color Urine Clarity Cloudy Urine pH 6.5 7.0 Ur Specific [place] 1.010 1.005 Urine Protein 100 H Urine Glucose (UA) Urine Ketones Urine Occult Blood Urine Nitrite Urine Bilirubin Urine Urobilinogen Ur Leukocyte Esterase Urine RBC Urine WBC Ur Squamous Epith Cells Ur Transition Epith Cell Ur Renal Epithelial Cell Urine Bacteria Urine Mucus 02/14/24 02/14/24 02/14/24 18:22 18:22 18:22 WBC RBC Hgb Hct MCV MCH MCHC RDW Std Deviation RDW Coeff of [place] Plt Count MPV Immature Gran % (Auto) Neut % (Auto) Lymph % (Auto) Brooks % (Auto) Eos % (Auto) Baso % (Auto) Absolute Neuts (auto) Absolute Lymphs (auto) Nucleated RBC % Differential Comment Atypical Lymphocytes Platelet Estimate RBC Morphology Anisocytosis Macrocytosis Ovalocytes PT INR APTT Sodium Potassium Chloride Carbon Dioxide Anion Gap BUN Creatinine Estim Creat Clear Calc Est GFR (MDRD) Af Amer Est GFR (MDRD) Non-Af BUN/Creatinine Ratio Glucose Lactic Acid Calcium Total Bilirubin AST ALT Alkaline Phosphatase Total Protein Albumin Globulin Albumin/Globulin Ratio Urine Color Urine Clarity Urine pH Ur Specific Parks Urine Protein 30 H Urine Glucose (UA) Normal Normal Urine Ketones Negative Negative Urine Occult Blood 250 H Urine Nitrite Urine Bilirubin Urine Urobilinogen Ur Leukocyte Esterase Urine RBC Urine WBC Ur Squamous Epith Cells Ur Transition Epith Cell Ur Renal Epithelial Cell Urine Bacteria Urine Mucus 02/14/24 02/14/24 02/14/24 18:22 18:22 18:22 WBC RBC Hgb Hct MCV MCH MCHC RDW Std Deviation RDW Coeff of [place]wey Plt Count MPV Immature Gran % (Auto) Neut % (Auto) Lymph % (Auto) Brooks % (Auto) Eos % (Auto) Baso % (Auto) Absolute Neuts (auto) Absolute Lymphs (auto) Nucleated RBC % Differential Comment Atypical Lymphocytes Platelet Estimate RBC Morphology Anisocytosis Macrocytosis Ovalocytes PT INR APTT Sodium Potassium Chloride Carbon Dioxide Anion Gap BUN Creatinine Estim Creat Clear Calc Est GFR (MDRD) Af Amer Est GFR (MDRD) Non-Af BUN/Creatinine Ratio Glucose Lactic Acid Calcium Total Bilirubin AST ALT Alkaline Phosphatase Total Protein Albumin Globulin Albumin/Globulin Ratio Urine Color Urine Clarity Urine pH Ur Specific [place] Urine Protein Urine Glucose (UA) Urine Ketones Urine Occult Blood 150 H Urine Nitrite Negative Negative Urine Bilirubin Negative Negative Urine Urobilinogen Normal Ur Leukocyte Esterase Urine RBC Urine WBC Ur Squamous Epith Cells Ur Transition Epith Cell Ur Renal Epithelial Cell Urine Bacteria Urine Mucus 02/14/24 02/14/24 02/14/24 18:22 18:22 18:22 WBC RBC Hgb Hct MCV MCH MCHC RDW Std Deviation RDW Coeff of [place]wey Plt Count MPV Immature Gran % (Auto) Neut % (Auto) Lymph % (Auto) Brooks % (Auto) Eos % (Auto) Baso % (Auto) Absolute Neuts (auto) Absolute Lymphs (auto) Nucleated RBC % Differential Comment Atypical Lymphocytes Platelet Estimate RBC Morphology Anisocytosis Macrocytosis Ovalocytes PT INR APTT Sodium Potassium Chloride Carbon Dioxide Anion Gap BUN Creatinine Estim Creat Clear Calc Est GFR (MDRD) Af Amer Est GFR (MDRD) Non-Af BUN/Creatinine Ratio Glucose Lactic Acid Calcium Total Bilirubin AST ALT Alkaline Phosphatase Total Protein Albumin Globulin Albumin/Globulin Ratio Urine Color Urine Clarity Urine pH Ur Specific [place] Urine Protein Urine Glucose (UA) Urine Ketones Urine Occult Blood Urine Nitrite Urine Bilirubin Urine Urobilinogen Normal Ur Leukocyte Esterase 500 H 500 H Urine RBC 10-25 SEEN 5-10 SEEN Urine WBC >100 SEEN Ur Squamous Epith Cells Ur Transition Epith Cell Ur Renal Epithelial Cell Urine Bacteria Urine Mucus 02/14/24 02/14/24 02/14/24 18:22 18:22 18:22 WBC RBC Hgb Hct MCV MCH MCHC RDW Std Deviation RDW Coeff of [place]wey Plt Count MPV Immature Gran % (Auto) Neut % (Auto) Lymph % (Auto) Brooks % (Auto) Eos % (Auto) Baso % (Auto) Absolute Neuts (auto) Absolute Lymphs (auto) Nucleated RBC % Differential Comment Atypical Lymphocytes Platelet Estimate RBC Morphology Anisocytosis Macrocytosis Ovalocytes PT INR APTT Sodium Potassium Chloride Carbon Dioxide Anion Gap BUN Creatinine Estim Creat Clear Calc Est GFR (MDRD) Af Amer Est GFR (MDRD) Non-Af BUN/Creatinine Ratio Glucose Lactic Acid Calcium Total Bilirubin AST ALT Alkaline Phosphatase Total Protein Albumin Globulin Albumin/Globulin Ratio Urine Color Urine Clarity Urine pH Ur Specific [place] Urine Protein Urine Glucose (UA) Urine Ketones Urine Occult Blood Urine Nitrite Urine Bilirubin Urine Urobilinogen Ur Leukocyte Esterase Urine RBC Urine WBC >100 SEEN Ur Squamous Epith Cells 0 SEEN 0-5 SEEN Ur Transition Epith Cell 0-5 SEEN 0-5 SEEN Ur Renal Epithelial Cell 0-5 SEEN Urine Bacteria Urine Mucus 02/14/24 02/14/24 02/14/24 18:22 18:22 18:22 WBC RBC Hgb Hct MCV MCH MCHC RDW Std Deviation RDW Coeff of Dewey Plt Count MPV Immature Gran % (Auto) Neut % (Auto) Lymph % (Auto) Brooks % (Auto) Eos % (Auto) Baso % (Auto) Absolute Neuts (auto) Absolute Lymphs (auto) Nucleated RBC % Differential Comment Atypical Lymphocytes Platelet Estimate RBC Morphology Anisocytosis Macrocytosis Ovalocytes PT INR APTT Sodium Potassium Chloride Carbon Dioxide Anion Gap BUN Creatinine Estim Creat Clear Calc Est GFR (MDRD) Af Amer Est GFR (MDRD) Non-Af BUN/Creatinine Ratio Glucose Lactic Acid Calcium Total Bilirubin AST ALT Alkaline Phosphatase Total Protein Albumin Globulin Albumin/Globulin Ratio Urine Color Urine Clarity Urine pH Ur Specific Parks Urine Protein Urine Glucose (UA) Urine Ketones Urine Occult Blood Urine Nitrite Urine Bilirubin Urine Urobilinogen Ur Leukocyte Esterase Urine RBC Urine WBC Ur Squamous Epith Cells Ur Transition Epith Cell Ur Renal Epithelial Cell 0-5 SEEN Urine Bacteria RARE RARE Urine Mucus 0 SEEN 0 SEEN Urinalysis reveals pyuria right and left nephrostomy tube. There is bacteria noted on 1 side. In light of elevated temperature, white count will contact hospitalist for admission. Rhythm Strip Rhythm Strip: Sinus Tach Rate: 110 Ectopy: None EKG Initial EKG: Attestation: I personally reviewed and interpreted this EKG as follows: Interpretation: Sinus Tachycardia (Rate is 108. The EKG is normal other than sinus tach. [place] interval is 148 ms. QS duration 86 ms. QT duration 3 and 36 ms. [place] is normal.) Treatment and Re-Evaluation :: Patient was informed of her laboratory results. Patient prefers to be admitted to [facility]. Discharge Plan Dx/Rx/DC Orders Clinical Impression: Complicated urinary tract infection, Bilateral hydronephrosis, Chronic renal failure, stage 4 (severe), Essential hypertension, Hyperlipidemia, Leukocytosis,Sinus tachycardia Disposition Disposition: Acute Care Hospital [facility] What to do if you have Problems For any increased pain, shortness of breath, bleeding, nausea or vomiting, chestpain, or any unexpected problems, contact your Primary Care Provider. Call [facility] ([phone]) or report to the closest Emergency Room. Call 911 if necessary. 02/14/241923 <Electronically signed by Altaf Villa MD> Cosigner Signature (if applicable): CC: Dr. Gerardo García MD ~ Signed [facility] Work Phone: [phone]) 546-968203-25-2024 Miscellaneous Notes* Telephone Encounter - Berna Matta - 02/11/2024 1:35 PM EDT Claire from IR called and she is on 02/12 at 8:00. She needs to arrive at 6:30 and be NPO after midnight, and she needs a transit mixer driver. Called pt and had to leave message. Berna Matta * Telephone Encounter - Stacey Keating - 02/11/2024 1:14 PM EDT Received bubble chat message Sunday at 2:05PM from stating Her RIGHT neph tube was accidentally pulled out Sunday night. I placed order for replacement. I would like it replaced Sunday I had to leave a message with IR at [phone] 02/11/24, informed them in the voicemail it needs scheduled ELISA. * Telephone Encounter - Jin Antonio MD - 02/11/2024 10:42 AM EDT I sent message to Stacey and Paula Olson. Check with them to see if they received it. * Telephone Encounter - Berna Matta - 02/11/2024 10:18 AM EDT Pt called and is wondering about getting a neph tube placed, she had left and right and the right side came totally out on Sunday night. How to proceed? Berna Matta [facility] Miscellaneous Notes* SN Agency DC - Breann Woods RN - 01/10/2024 11:10 AM EST SITUATION: Residential agency discharge visit completed today. only patient also present during today's visit. patient reports the following: Allergies--reviewed Medications--reviewed current medications Falls--None BACKGROUND: Reason for Home Care: Nephrostomy tube care ASSESSMENT: SN greeted at door by pt called for sn to enter Patient appears in no acute distress. Patient/CG concerns verbalized today: none Vitals (see flow sheet for details): stable SN findings today: pt calls for sn to enter home. pt is resting in her chair in her upstairs bedroom. pt is pleasant and cooperative. sn tells pt today is her dc visit, pt states i feel like I havecome a long way. pt saw her new light rail operator Dr Miller in [place] on sunday. pt states he was pleasedwith everything and wants to see her in 4 months. pt is due to have her nephrostomy tubes changed again in january. pts daughter changes her tube dressings for pt. pt is independent in draining her nephrostomy bags. pt denies any issues or problems. pt states the only issue she has is trying to get comfortable when I sleep. pts dressings to nephrostomy tubes are clean, dry and intact. pts daughter changes these for pt. pt denies any s/s infection. pts vitals are wn. pts lungs are clear. pt denies any cp or sob. pt denies any gi issues. pts gait is slow and steady. pt no longer uses any devices to ambulate. pt lvies with several family members who assist pt as needed. sn taught pt falls prevention and safety. sn taught pt to keep all follow up appts and to call dr should she develop any fevers, chills or notice redness, new pain, or discharge from her nephrostomy tube sites. pt voiced understanding. pt states she is eating more and taking in her fluids as instructed. sn educated pt on importance of getting protien into diet as well. pt denies any med chagnes and states she takes her m eds as ordered. See intervention summary for education details and any skills performed. Specific SN discharge instructions: keep all follow up appts Patient encouraged to take all medication as ordered, eat a well-balanced diet and follow up with all physician appointments. NOMNC: signed and present on EMR Discharged due to Goals met. Patient discharged from Home Care to: self-care RECOMMENDATION: Additional follow ups recommended: None Patient to follow up with Dr. García for additional medical questions/concerns. [facility] Miscellaneous Notes* [facility] Routine - Breann Woods RN - 01/03/2024 2:15 PM EST SITUATION: Residential routine visit completed today. only patient also present during today's visit. patient reports the following: Allergies--reviewed Medications--reviewed current medications Falls--None DME-NONE BACKGROUND: Reason for Home Care: nephrostomy tube x 2 ASSESSMENT: SN greeted at door by patient called for sn to enter Patient appears in no acute distress. Patient/CG concerns verbalized today: none Vitals (see flow sheet for details): stable SN findings today: pt is pleasant and cooperative. pt is resting in chair in her bedroom. pt lives with several family members but only patient is present today. pt denies any falls, she states I amvery careful. pt denies any pain. pt states she is seeing her new dr (Dr Miller) next week, he is her light rail operator. pt states she is eating and drink well. pt is independent in emptying her bilateral nephrostomy bags. pts daughter changes dressing sites, dressings had just been changed prior to sn visit today. pt denies any changes to her medications and states she takes them as directed. pts vitals are wnl. pt states she checks temp and pulse ox daily. pt denies any s/s infection. pt denies anygi issues. pts lungs are clear. pt denies any cp or sob. pt states last sunday she had a visit forneprostomy tube changes. sn had pt sign nomnc today as next week is her last visit. See intervention summary for education details. Patient demonstrated a need for further skilled SN services for chronic disease management & education, safety and drain/tube care. Current Discharge plan: family support RECOMMENDATION: Next visit to focus on (be specific): discharge [facility] Miscellaneous Notes* Sedation Documentation - Shazia Toribio RN - 01/01/2024 1:33 PM EST Reviewed flushing and site care with pt who expressed understanding,. * Sedation Documentation - Shazia Toribio RN - 01/01/2024 12:50 PM EST R PTN out of place, pt prepped for exchange. documented in this [facility] Surgical operation note* Brief Op Note - Jose L Patel MD, - 01/01/2024 1:23 PM EST INTERVENTIONAL RADIOLOGY POST PROCEDURE NOTE DATE: 01/01/24 NAME: Todd Delong LOG ID: [id number] Pre-Procedure Diagnosis: Radiation cystitis with bilateral ureteral stenosis Controls Operator Molded Goods: Surgeon(s) and Role: * Jose L Patel MD, MD - Primary Procedure: Bilateral nephrostogram and replace dislodged right PTN Anesthesia: Local Findings: Left PTN in good position. Urine clear. Some contrast passes through stent into bladder but need high pressure injection. On right PTN dislodged from kidney. New 8 Fr 35 cm Skater PTN placed back into renal pelvis. Urine slightly cloudy. Right stent migrated down ureter with pigtail just above ureteral stenosis. No contrast passes into bladder during right nephrostogram. Estimated Blood Loss: 0 ml Specimen: None Complications: None Post-Op/Post-Procedure Diagnosis: Radiation cystitis with bilateral ureteral stenosis documented in [facility] Miscellaneous Notes* SN Routine - Breann Woods RN - 12/27/2023 4:05 PM EST SITUATION: Residential routine visit completed today. daughter also present during today's visit. patient reports the following: Allergies--reviewed Medications--reviewed current medications Falls--None DME-Reviewed and added to chart BACKGROUND: Reason for Home Care: nephrostomy tube care ASSESSMENT: SN greeted at door by caregiver. Upon entrance patient found in chair Patient appears in no acute distress. Patient/CG concerns verbalized today: none Vitals (see flow sheet for details): stable SN findings today: pts greeted at door by pts daughter. pt is upstairs in bedroom resting in chair.visit is completed in bedroom. pt lives with several people, 2 daughters and their children. pt hasher own room and bath upstairs. pt denies any falls. pt denies any pain. pt states the right sided nephrostomy tube gets tender as she likes lie on her right side and it irritates the area. sn statesher appetite is pretty good. pt saw dr Antonio yesterday. and she is seeing light rail operator next week for follow up. pt states she is urinating as well as draining urine from her bilateral nephrostomy tube bags. pt states her daughter changes her nephrostomy tube dressings for her. pt denies any s/s infection. pts vitals are wnl. pt lungs are clear. pt denies any cp or sob. pt states she is doing some light exercises in her room to keep moving sn edcuated pt to take it slow and listen to her body. pts room is up a set of stairs and the stairs are uncarpeted wooden stairs, sn educated pt on falls prevention and safety and to make sure to wear non slip socks or shoes when up and about. pt states she takes her walker when she leaves the home. pt states she is taking her meds as ordered and denies any changes to them. sn changed pts nephrostomy tube dressing today at visit. right nephrostomy tube dressing was wet from urine leakage. skin was slightly pink around right tube, pts daughter placed tape around the tube as directed dr Antonio per pt to keep the tube from bending so much. left sided nephrostomy tube dressing was dry, skin was dry, clean and intact. pt educated to have daughter check dressing daily and if it is wet or soiled to change them. See intervention summary for education details. Patient demonstrated a need for further skilled SN services for chronic disease management & education, safety and drain/tube care. 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 [facility] Miscellaneous Notes* Telephone Encounter - Berna Matta - 12/25/2023 10:24 AM EST Called pt and she is on 02/06. Pt is on for a stent exchange under general anaesthesia with on 02/06. CASE# [id number] Pt is aware of prep and arrival instructions given verbally on 12/25. Pt states she is not on any blood thinners. Mailed instructions 12/25. Post op 02/24 at 1:30 in the [place] office. Berna Matta documented in this [facility] Miscellaneous Notes* Telephone Encounter - Silke Esparza - 12/25/2023 8:58 AM EST LVM for patient to see if they want bi-lateral nephrostagram at [place] or [facility]. documented in this [facility]02[facility] History of Present illness Narrative* Jin Antonio MD - 12/24/2023 4:01 PM EST ESTABLISHED PATIENT OFFICE VISIT F/u Acute on CKI from B ureteral obstruction. She is tolerating the B neph tubes. She has not had blood work since discharge. She is slowly regaining strength. LAB RESULTS Creatinine Date Value Ref Range Status 11/24/2023 2.32 (H) 0.51 - 0.95 mg/dL Final Comment: Patients receiving either N-Acetylcysteine (NAC) or Metamizole prior to venipuncture, may have falsely depressed results. No results found for: UGLUCPOC, UBILIPOC, UKETONPOC, USGPOC, UHBPOC, UPHPOC, UPROPOC,UUROPOC, UNITPOC, UWBCPOC, UCOLPOC, UCLARPOC] ALLERGIES Allergen Reactions Methylprednisolone Other: See Comments Bactrim [Sulfametho* Shortness of Breath Influenza Virus Vac* Unknown Pravastatin Intolerance Prednisone Unknown Fpdugdh-Crb-Ghx Red* Anaphylaxis MEDICATIONS: pantoprazole DR (PROTONIX) 40 mg tablet Take 40 mg by mouth once daily. potassium chloride ER (KLOR-CON) 20 mEq tablet Take 20 mEq by mouth once daily. amLODIPine (NORVASC) 2.5 mg tablet Take 2.5 mg by mouth once daily. ALBUTEROL SULFATE (VENTOLIN INHALATION) Inhale 1 [place] as instructed every 4 hours as needed (wheezing/shortness of breath). BECLOMETHASONE DIPROPIONATE (QVAR INHALATION) Inhale 1 Inhalation as instructed twice daily. cephALEXin (KEFLEX) 250 mg capsule Take 1 capsule by mouth one time only for 1 dose. Take one hour before procedure REVIEW OF SYSTEMS GENERAL: no unintentional weight loss, malaise or fevers. NEUROLOGIC: pt is alert and oriented GASTROINTESTINAL: No nausea, vomiting, or diarrhea GENITOURINARY: See HPI MUSCULOSKELETAL: Negative for joint pain or swelling, back pain or muscle pain SKIN: Negative for lesions, rash, and itching. ACTIVE PROBLEM LIST Hypermature senile cataract - Both Eyes Regular astigmatism - Both Eyes Essential Hypertension High Cholesterol Asthma S/P Laser Cataract Surgery Astigmatism of Left Eye Luly (Acute Kidney Injury) (Hcc) Bilateral Hydronephrosis Leukocytosis Diarrhea Recurrent Uti Hydronephrosis HISTORIES PAST MEDICAL HISTORY Diagnosis Date Asthma H/O: Dunbar's palsy Hypertension PAST SURGICAL HISTORY Procedure Laterality Date CRNL RELAXING INC CORRJ INDUCED ASTIGMATISM Right 08/11/2015 LRI (Corneal Relaxing Incision) CRNL RELAXING INC CORRJ INDUCED ASTIGMATISM Left 09/09/2015 LRI (Corneal Relaxing Incision) PAST SURGICAL HISTORY OF gallbladder PAST SURGICAL HISTORY OF 1984 radiation XCAPSL CTRC RMVL INSJ IO LENS PROSTH W/O ECP Right 08/11/2015 Cataract Extraction with Femtosecond Laser (LenSx) XCAPSL CTRC RMVL INSJ IO LENS PROSTH W/O ECP Left 09/09/2015 Cataract Extraction with PC IOL FAMILY HISTORY Problem Relation Age of Onset Heart Father SOCIAL HISTORY Social History Tobacco Use Smoking status: Former Types: Cigarettes Quit date: 01/04/2008 Years since quittin.9 Smokeless tobacco: Never Substance Use Topics Drug use: Not Currently PHYSICAL EXAMINATION General appearance: Well appearing, alert, in no acute distress, well-hydrated, well nourished Psych Alert and oriented to person, place and time ASSESSMENT/PLAN: 1. LULY (acute kidney injury) (HCC) - ICD9: 584.9, ICD10: N17.9 (primary diagnosis) Check Bmp today 2. Bilateral hydronephrosis - ICD9: 591, ICD10: N13.30 She has B stents and neph tubes. I will arrange B nephrostograms and make plans to exchange her stents. Raji ramirez for the procedure. - BASIC METABOLIC PNL - IR NEPHROSTOGRAM - SURGICAL REQUEST - ELECTIVE (06/2020) Jin Antonio MD documented [facility] this [facility] Miscellaneous Notes* Telephone Encounter - Kari Flor - 12/21/2023 4:31 PM EST Called and left a message for Shazia. Informing her of message from Dr. Antonio. Inderjit number is [phone] Kari Basia * Telephone Encounter - Jin Antonio MD - 12/21/2023 4:18 PM EST She can tape around the leak, if she can see where it is coming from. I will address Sunday. It mayneed to be exchanged. * Telephone Encounter - Kari Flor - 12/21/2023 3:59 PM EST Patients nurse Shazia called in stating patient has a leak in her nephrostomy tube. It is saturating. Is there anything she can do other than keeping it clean and dry? Please advise. Kari Basia documented in this [facility] Miscellaneous Notes* HH CARE COORDINATION - Emanuel Curtis, RN - 12/21/2023 2:40 PM EST This SN has not heard back from the office of Dr. Veronica Antonio. This SN attempted to call the office once again to follow up. This SN contacted the [place] office and was informed there was no Dr. Veronica Antonio affiliated with that [place] office. This SN reaserched other options and noted there was a [facility]/[place] office associated with this particulary Dr. Veronica Antonio. This SN then placed a call and left a message for the [place] [facility] office. This SN reported the same issues from yesterday and am now awaiting a call back with recommendations.Patient has a follow up appointment scheduled with Dr. Antonio on Sunday12/24/23. documented in this [facility] Miscellaneous Notes* Telephone Encounter - Joey Strange RN - 12/20/2023 1:28 PM EST Jerry Muñoz am the home care nurse seeing this pt today for drain care. Pt's right nephrostomy tube site, theold dressing was saturated with yellow serous drainage (smelled of urine, last dressing change 1 week ago.) Pt reports that she has been waking up with my bed and clothes being damp recently in thepast 2 weeks. No redness around site, pt denies c/o pain or fevers. Light yellow urine noted in both drainage bags. Pt has f/u with Dr. Antonio on Sunday. I also noted pt was hypertensive today, 160/90, recheck 160/86. Pt's BP has been trending up (initial home care readings at beginning of November were SBP around 112). Her HR was initially irregular at 100BPM, but on re-check her HR was regular at 84. Please call pt [phone] or pt's daughter [phone] for adivce. Thank you documented [facility] Miscellaneous Notes* SN Routine - Joey Strange RN - 12/20/2023 12:52 PM EST SITUATION: Residential routine visit completed today. only patient also present during today's visit. patient reports the following: Allergies--reviewed Medications--reviewed current medications Falls--None DME-Reviewed and added to chart BACKGROUND: Reason for Home Care: nephrostomy tube care ASSESSMENT: SN greeted at door by caregiver (not present for visit). Upon entrance patient found in chair Patient appears in no acute distress. Patient/CG concerns verbalized today: none Vitals (see flow sheet for details): see note SN findings today: pt pleasant. pt denies c/o pain. pt denies fevers/chills. SN noted HTN, and pt'sHR irregular. pt denies dizziness, CP, palpitations. pt states, well that is all unusual for me. SN reviewed VS and noted pt's BP has increased. pt states, when I wake up sometimes, my nightgown is damp on the right side. SN performed nephrostomy tube drain care. SN noted that dressing to rightnephrostomy tube is saturated, smells of urine. no redness around site or pain, suture intact. nephrostomy tube is draining clear yellow urine into drainage bag still. pt states, it was pink once last week, but it went away quick. no complications with left nephrostomy tube drain site, clear yellow urine noted in drainage bag. pt states she still voids as well and is incontinent. pt denies GI issues. SN re-checked pt's VS, HR regular, HTN noted. pt does not have an automatic BP cuff in the home to check BP. pt states Dr. Murrell, is my new family dr, but I haven't seen him yet, so he doesn't know what is going on. SN sent high-priority in-basket message to Dr. Antonio and Dr. Murrell to report right nephrostomy tube leaking, HTN, and irregular HR. SN called Dr. Javed's office several timesand ended up having to leave a VM on the nurse line. SN sent email to pt's CM to have her follow-upas well. SN taught pt to call Dr. Javed's office this afternoon as well, if she hasn't heard back from the doctor. SN taught pt to call 911 and go to ER for confusion, CP, dizziness, SOB, fevers,chills. pt stated she has f/u with Dr. Antonio on Sunday. See intervention summary for education details. Patient demonstrated a need for further skilled SN services for chronic disease management & education and drain/tube care. Current Discharge plan: family support RECOMMENDATION: Next visit to focus on (be specific): check for new orders due to right nephrostomy tube issues, HTN, irregular HR. documented in this [facility]12[facility]23 Discharge summary Author Rafa Lofton [facility] November 13, 2023 11:05am Note Date/Time November 13, 2023 11:01am [facility] [address] [place] [address] Discharge Summary 11/13/23 1058 MR#: [id number] Acct: [id number] Name: TODD DELONG Rep #:[id number] : 1950 73 From: Rafa Lofton DO PCP: Dr. Gerardo García MD Status:ADM I N Location: [place] [address] Providers Date of Admission: 11/10/23 Primary Care Physician: Dr. Gerardo García MD Consultations 11/10/23 23:07 Consult: Infectious Disease Routine Consulting Provider: Ky Goddard Reason for Consult: UTI with recurrent sepsis EMERGENT Consult: No MD Notified: No Date Notified: 11/10/23 Time Notified: 23:07 Reason For Visit: RECURRENT UTI WITH SEPSIS Diagnosis Discharge Diagnosis (1) Acute UTI: Status: Acute Code(s): N39.0 - Urinary tract infection, site not specified (2) Sepsis: Status: Acute Code(s): A41.9 - Sepsis, unspecified organism Qualifiers: Sepsis type: sepsis due to unspecified organism Sepsis acute organ dysfunction status: without acute organ dysfunction Qualified Code(s): A41.9 - Sepsis, unspecified organism (3) Chronic kidney disease: Status: Chronic Code(s): N18.9 - Chronic kidney disease, unspecified Qualifiers: Chronic kidney disease stage: stage 4 (severe) Qualified Code(s): N18.4- Chronic kidney disease, stage 4 (severe) (4) Leukocytosis: Status: Acute Code(s): D72.829 - Elevated white blood cell count, unspecified Qualifiers: Leukocytosis type: unspecified Qualified Code(s): D72.829 - Elevated white blood cell count, unspecified Plan Patient presents with recurrent UTI. Patient had been on cephalexin. Urinalysis was positive, her with urine culture showed mixed gram-positive organisms. Unclear if culture was skewed by her previous antibiotic usage. Patient had previously had organisms are sensitive to cephalexin. Patient was placed on meropenem and linezolid initially but linezolid was discontinued. Patient overall is feeling better. Patient does have ureteral stents in place. Unclear if these are a nidus for recurrent infections. But based on her last culture, patient did have E. coli that was sensitive to nitrofurantoin resistantto cephalosporins. Will discharge her with Macrobid this patient does have allergies to Bactrim and fluoroquinolones. Patient advised to follow-up with urology as outpatient. Acute UTI * Uncomplicated. * Failed outpt abx w cephalexin. * qSOFA 0 on admission. Therefore, sepsis not present. * Continue meropenem. DC linezolid. H/O Klebsiella pneumonia treated with cephalexin. More recently E. coli. Follow up cultures. * UCx mixed GPO. Given presentation, would elect to continue to treat with abx. Likely change to nitrofurantoin. (E. coli that she had last month was se nsitive.) * Patient does have ureteral stents placed. Concerned that this could be leading to recurrent infections. Advised patient follow-up with Dr. Strickland as outpatient. Tachycardia * resolved * sinus on telemetry. Likely secondary to underlying infection. Will give an additional liter of IVF. Chronic conditions: * Chronic kidney disease stage IIIb-IV; with history of atriovenostomy for renal dialysis in September 2021, * Essential hypertension continue amlodpidine * Hyperlipidemia (with history of anaphylaxis to statins) * Hypothyroidism - levothyroxine * Previous history of tobacco abuse * History of mild intermittent asthma - Stable with no evidence of acute flare at this time. BDs PRN. * Chronic gout - Stable no evidence of acute flare. DVT prophylaxis - Lovenox 30 mg sq daily Medications at Discharge Home Medications albuterol sulfate 90 mcg/actuation aerosol inhaler (Ventolin HFA) 2 puff inhalation Q6H PRN Sob &/Or Wheezing 07/25/18 potassium chloride 20 mEq tablet,extended release(part/cryst) 20 meq PO DAILY supplement 09/01/20 amlodipine 2.5 mg tablet 2.5 mg PO DAILY BP #90 tabs 08/12/21 ipratropium bromide 42 mcg (0.06 %) nasal spray 2 spray intranasal DAILY allergie 11/23/21 pantoprazole 40 mg tablet,delayed release 40 mg PO DAILY GERD 03/27/23 nitrofurantoin monohydrate/macrocrystals 100 mg capsule (Macrobid) 100 mg PO Q12H 5 days #10 caps 11/13/23 Hospital Course Operations None Procedures None Summary of Care Provided Minutes Spent on Discharge: 35 Weight / BMI Weight Weight: 77.8 kg Body Mass Index (BMI) 26.0 ABG / Lab / Microbiology Data 11/13/23 07:00 11/13/23 07:00 Laboratory: Laboratory Results - last 24 hr 11/13/23 06:10: WBC Cancelled, Corrected WBC Cancelled, RBC Cancelled, Hgb Cancelled, Hct Cancelled, MCV Cancelled, MCH Cancelled, MCHC Cancelled, RDW Std Deviation Cancelled, RDW Coeff of Dewey Cancelled, Plt Count Cancelled, MPV Cancelled, Immature Gran % (Auto) Cancelled, Neut % (Auto) Cancelled, Lymph % (Auto) Cancelled, Brooks % (Auto) Cancelled, Eos % (Auto) Cancelled, Baso % (Auto)Cancelled, Absolute Neuts (auto) Cancelled, Absolute Lymphs (auto) Cancelled, Total Counted Cancelled, Neutrophils % (Manual) Cancelled, Band Neutrophils % Cancelled, Lymphocytes % (Manual) Cancelled, Monocytes % (Manual) Cancelled, Eosinophils % (Manual) Cancelled, Basophils % (Manual) Cancelled, Metamyelocytes% Cancelled, Myelocytes % Cancelled, Promyelocytes % Cancelled, Blast Cells % Cancelled, Plasma Cell % (Manual) Cancelled, Other Cells % Cancelled, Nucleated RBC % Cancelled, Nucleated RBCs/100 WBC Cancelled, Differential Comment Cancelled, Diff Path Review Cancelled, Hypersegmented Neuts Cancelled, Atypical Lymphocytes Cancelled, Reactive Lymphocytes Cancelled, Smudge Cells Cancelled, Toxic Granulation Cancelled, Toxic Vacuolation Cancelled, Dohle Bodies Cancelled, Su Rods Cancelled, Platelet Estimate Cancelled, Plt Morphology Comment Cancelled, RBC Morphology Cancelled 11/13/23 06:10: RBC Morphology Cancelled, Polychromasia Cancelled, HypochromasiaCancelled, Poikilocytosis Cancelled, Basophilic Stippling Cancelled, Anisocytosis Cancelled, Microcytosis Cancelled, Macrocytosis Cancelled, Spherocytes Cancelled, Sickle Cells Cancelled, Target Cells Cancelled, Tear DropCells Cancelled, Ovalocytes Cancelled, Stomatocytes Cancelled, [place] Bodies Cancelled, Lee Cells Cancelled, Bite Cells Cancelled, Crenated Cell Cancelled, Acanthocytes (Spur) Cancelled, Rouleaux Cancelled, Schistocytes Cancelled, Sodium Cancelled, Potassium Cancelled, Chloride Cancelled, Carbon Dioxide Cancelled, Anion Gap Cancelled, BUN Cancelled, Creatinine Cancelled, Estim Creat Clear Calc Cancelled, Est GFR (MDRD) Af Amer Cancelled, Est GFR (MDRD) Non-Af Cancelled, BUN/Creatinine Ratio Cancelled, Glucose Cancelled, Calcium Cancelled, Total Bilirubin Cancelled, AST Cancelled, ALT Cancelled, Alkaline Phosphatase Cancelled, Total Protein Cancelled, Albumin Cancelled, Globulin Cancelled, Albumin/Globulin Ratio Cancelled 11/13/23 07:00: WBC 18.3 H, RBC 3.11 L, Hgb 9.5 L, Hct 30.7 L, MCV 98.7, MCH 30.5, MCHC 30.9 L, RDW Std Deviation 55.6 H, RDW Coeff of Dewey 15.5 H, Plt Count 310, MPV 10.1, Immature Gran % (Auto) 1.100 H, Neut % (Auto) 74.1 H, Lymph % (Auto) 19.0, Brooks % (Auto) 4.5, Eos % (Auto) 1.0, Baso % (Auto) 0.3, Absolute Neuts (auto) 13.5 H, Absolute Lymphs (auto) 3.47, Nucleated RBC % 0, Sodium 139,Potassium 3.7, Chloride 112 H, Carbon Dioxide 16.0 L, Anion Gap 11, BUN 25 H, Creatinine 4.04 H, Estim Creat Clear Calc 12.88, Est GFR (MDRD) Af Amer 14 L, Est GFR (MDRD) Non-Af 12 L, BUN/Creatinine Ratio 6.2 L, Glucose 83, Calcium 6.7 L, Total Bilirubin 0.50, AST 11 L, ALT < 6 L, Alkaline Phosphatase 90, Total Protein 6.2 L, Albumin 1.6 L, Globulin 4.6 H, Albumin/Globulin Ratio 0.3 L Microbiology: Microbiology 11/10/23 20:40 Blood Culture (Wb) - Right Hand Blood Culture - Preliminary No growth in 48 hours. 11/10/23 20:25 Blood Culture (Wb) - Anticubital Right Blood Culture - Preliminary No growth in 48 hours. 11/10/23 20:15 Urine, Clean Catch Urine Culture - Final Mixed Gram Positive Organisms D/C Instructions Discharge Diet: No restrictions Meaningful Use Info Meaningful Use Diagnoses (Choose all that apply): None applicable Discharge Plan Admission Admit Date/Time: 11/10/23 23:00 Primary Reason for Your Visit: Urinary tract infection. Attending Provider: Rafa Lofton Primary Care Provider: Gerardo Gracía Chi Consulting Providers: Andres Maurer Instructions Additional Instructions / Restrictions: He had a recurrent urinary tract infection. You will be on nitrofurantoin. Please follow-up with Dr. Strickland as it may be concerning that your stents may bechronically infected and could lead to potential recurrent urinary tract infections in the future. Discharge Orders/Prescriptions Prescriptions: New nitrofurantoin monohyd/m-cryst [Macrobid] 100 mg capsule 100 mg PO Q12H 5 Days Qty: 10 0RF Rx Instructions: must administer with a meal/food Continued albuterol sulfate [Ventolin HFA] 90 mcg/actuation HFA aerosol inhaler 2 puff INHALATION Q6H PRN (Reason: Sob &/Or Wheezing) pantoprazole 40 mg tablet,delayed release (DR/EC) 40 mg PO DAILY Hold Instructions: Order Completed potassium chloride 20 MEQ tablet,ER particles/crystals 20 meq PO DAILY ipratropium bromide 42 mcg (0.06 %) spray,non-aerosol 2 spray INTRANASAL DAILY amlodipine 2.5 mg tablet 2.5 mg PO DAILY Qty: 90 3RF Discontinued cephalexin 500 mg capsule 500 mg PO Q6H Qty: 40 0RF cephalexin [cephalexin] 500 mg capsule 500 mg PO Q6 Qty: 20 0RF Referrals / Follow Up: Joshua Strickland MD [Med Staff - Active Staff] - Within 1 Month Gerardo García Chi, MD [Primary Care Provider] - Within 2 Weeks Disposition Disposition (needs filled in before D/C Order can be placed): Home, Self Care Charges/Coding Visit Charges Inpatient E&M: 02093 Disch Hosp >30min 11/13/23 1105 <Electronically signed by Rafa Lofton DO> Cosigner Signature (if applicable): CC: Dr. Rafa Lofton DO; Dr. Gerardo García MD~ Signed [facility] Work Phone: 1(555) 994-761012-26-2023 Progress note Author aRfa Lofton [facility] November 13, 2023 10:58am Note Date/Time November 13, 2023 7:33am [facility] Medical Records Department [address] [place] [address] Progress Note - Hospitalist 11/13/2329 MR#: [id number] Acct: [id number] Name: TODD DELONG Rep #:[id number] : 1950 73 From: Rafa Lofton DO PCP: Dr. Gerardo García MD Status:ADM I N Location: [place] [address] Reason for Visit Reason for Visit: Diagnoses Sepsis, unspecified organism (11/10/23) Elevated white blood cell count, unspecified (11/10/23) Chronic kidney disease, stage 4 (severe) (11/10/23) Urinary tract infection, site not specified (11/10/23) Subjective Subjective Feels well. No new complaints. Objective Data Objective Data Vital Signs: Vital Signs Temp Pulse Resp BP Pulse Ox O2 Del Method 36.6 C 105 H 18 157/80 H 98 Room Air 11/13/23 05:16 11/13/23 05:16 11/13/23 05:16 11/13/23 05:16 11/13/23 05:16 11/13/23 05:16 Oxygen Delivery Method Room Air Weight: 77.8 kg Body Mass Index (BMI) 26.0 Intake & Output: Intake and Output for Last 24 Hours 11/11/23 11/12/23 11/13/23 23:59 23:59 23:59 Intake Total 3395.50 / 3395.50 2770 / 2770 300 / 300 Output Total 150 / 150 Balance 3395.50 / 3395.50 2620 / 2620 300 / 300 Lab / Micro Data 11/13/23 07:00 11/13/23 07:00 Labs: Laboratory Results - last 24 hr 11/13/23 06:10: WBC Cancelled, Corrected WBC Cancelled, RBC Cancelled, Hgb Cancelled, Hct Cancelled, MCV Cancelled, MCH Cancelled, MCHC Cancelled, RDW Std Deviation Cancelled, RDW Coeff of Dewey Cancelled, Plt Count Cancelled, MPV Cancelled, Immature Gran % (Auto) Cancelled, Neut % (Auto) Cancelled, Lymph % (Auto) Cancelled, Brooks % (Auto) Cancelled, Eos % (Auto) Cancelled, Baso % (Auto)Cancelled, Absolute Neuts (auto) Cancelled, Absolute Lymphs (auto) Cancelled, Total Counted Cancelled, Neutrophils % (Manual) Cancelled, Band Neutrophils % Cancelled, Lymphocytes % (Manual) Cancelled, Monocytes % (Manual) Cancelled, Eosinophils % (Manual) Cancelled, Basophils % (Manual) Cancelled, Metamyelocytes% Cancelled, Myelocytes % Cancelled, Promyelocytes % Cancelled, Blast Cells % Cancelled, Plasma Cell % (Manual) Cancelled, Other Cells % Cancelled, Nucleated RBC % Cancelled, Nucleated RBCs/100 WBC Cancelled, Differential Comment Cancelled, Diff Path Review Cancelled, Hypersegmented Neuts Cancelled, Atypical Lymphocytes Cancelled, Reactive Lymphocytes Cancelled, Smudge Cells Cancelled, Toxic Granulation Cancelled, Toxic Vacuolation Cancelled, Dohle Bodies Cancelled, Su Rods Cancelled, Platelet Estimate Cancelled, Plt Morphology Comment Cancelled, RBC Morphology Cancelled 11/13/23 06:10: RBC Morphology Cancelled, Polychromasia Cancelled, HypochromasiaCancelled, Poikilocytosis Cancelled, Basophilic Stippling Cancelled, Anisocytosis Cancelled, Microcytosis Cancelled, Macrocytosis Cancelled, Spherocytes Cancelled, Sickle Cells Cancelled, Target Cells Cancelled, Tear Drop Cells Cancelled, Ovalocytes Cancelled, Stomatocytes Cancelled, [place] Bodies Cancelled, Annette Cells Cancelled, Bite Cells Cancelled, Crenated Cell Cancelled, Acanthocytes (Spur) Cancelled, Rouleaux Cancelled, Schistocytes Cancelled, Sodium Cancelled, Potassium Cancelled, Chloride Cancelled, Carbon Dioxide Cancelled, Anion Gap Cancelled, BUN Cancelled, Creatinine Cancelled, Estim CreatClear Calc Cancelled, Est GFR (MDRD) Af Amer Cancelled, Est GFR (MDRD) Non-Af Cancelled, BUN/Creatinine Ratio Cancelled, Glucose Cancelled, Calcium Cancelled,Total Bilirubin Cancelled, AST Cancelled, ALT Cancelled, Alkaline Phosphatase Cancelled, Total Protein Cancelled, Albumin Cancelled, Globulin Cancelled, Albumin/Globulin Ratio Cancelled 11/13/23 07:00: WBC 18.3 H, RBC 3.11 L, Hgb 9.5 L, Hct 30.7 L, MCV 98.7, MCH 30.5, MCHC 30.9 L, RDW Std Deviation 55.6 H, RDW Coeff of Dewey 15.5 H, Plt Count 310, MPV 10.1, Immature Gran % (Auto) 1.100 H, Neut % (Auto) 74.1 H, Lymph % (Auto) 19.0, Brooks % (Auto) 4.5, Eos % (Auto) 1.0, Baso % (Auto) 0.3, Absolute Neuts (auto) 13.5 H, Absolute Lymphs (auto) 3.47, Nucleated RBC % 0 Micro: Microbiology 11/10/23 20:15 Urine, Clean Catch Urine Culture - Final Mixed Gram Positive Organisms Physical Exam Const alert and no apparent distress HEENT head/scalp atraumatic and moist oral mucous membranes Extremity normal to inspection Neuro Sensorium / Orientation: awake and alert Assessment & Plan Assessment/Plan (1) Acute UTI: (2) Sepsis: QUALIFIERS: Sepsis acute organ dysfunction status: without acute organ dysfunction Sepsis type: sepsis due to unspecified organism Qualified Code(s): A41.9 - Sepsis, unspecified organism (3) Chronic kidney disease: QUALIFIERS: Chronic kidney disease stage: stage 4 (severe) Qualified Code(s): N18.4 - Chronic kidney disease, stage 4 (severe) (4) Leukocytosis: QUALIFIERS: Leukocytosis type: unspecified Qualified Code(s): D72.829 - Elevated white blood cell count, unspecified PLAN: Plan Acute UTI * Uncomplicated. * Failed outpt abx w cephalexin. * qSOFA 0 on admission. Therefore, sepsis not present. * Continue meropenem. DC linezolid. H/O Klebsiella pneumonia treated with c ephalexin. More recently E. coli. Follow up cultures. * UCx mixed GPO. Given presentation, would elect to continue to treat with abx. Likely change to nitrofurantoin. (E. coli that she had last month was sensitive.) * Patient does have ureteral stents placed. Concerned that this could be leading to recurrent infections. Advised patient follow-up with Dr. Strickland as outpatient. Tachycardia * resolved * sinus on telemetry. Likely secondary to underlying infection. Will give an additional liter of IVF. Chronic conditions: * Chronic kidney disease stage IIIb-IV; with history of atriovenostomy for renal dialysis in September 2021, * Essential hypertension continue amlodpidine * Hyperlipidemia (with history of anaphylaxis to statins) * Hypothyroidism - levothyroxine * Previous history of tobacco abuse * History of mild intermittent asthma - Stable with no evidence of acute flare at this time. BDs PRN. * Chronic gout - Stable no evidence of acute flare. DVT prophylaxis - Lovenox 30 mg sq daily 11/13/23 1058 <Electronically signed by Rafa Lofton DO> Cosigner Signature (if applicable): CC: ~ Signed [facility] Work Phone: 1(615) 429-996612-25-2023 Progress note Author Rafa Lofton [facility] November 12, 2023 10:42am Note Date/Time November 12, 2023 7:30am [facility] Medical Records Department [address] [place] [id number] Progress Note - Hospitalist 11/12/23725 MR#: [id number] Acct: [id number] Name: TODD DELONG MONI Rep #:[id number] : 1950 73 From: Rafa Lofton DO PCP: Dr. Gerardo García MD Status:ADM I N Location: [place] [address] Reason for Visit Reason for Visit: Diagnoses Sepsis, unspecified organism (11/10/23) Elevated white blood cell count, unspecified (11/10/23) Chronic kidney disease, stage 4 (severe) (11/10/23) Urinary tract infection, site not specified (11/10/23) Subjective Subjective Still feeling sick. Objective Data Objective Data Vital Signs: Vital Signs Temp Pulse Resp BP Pulse Ox O2 Del Method 37.1 C 122 H 18 138/75 H 95 Room Air 11/12/23 02:38 11/12/23 02:38 11/12/23 02:38 11/12/23 02:38 11/12/23 02:38 11/12/23 02:38 Oxygen Delivery Method Room Air Weight: 77.8 kg Body Mass Index (BMI) 26.0 Intake & Output: Intake and Output for Last 24 Hours 11/10/23 11/11/23 11/12/23 23:59 23:59 23:59 Intake Total 1050 / 1050 3395.50 / 3395.50 Output Total 150 / 150 Balance 1050 / 1050 3395.50 / 3395.50 -150 / -150 Lab / Micro Data 11/12/23 04:35 11/12/23 04:35 Labs: Laboratory Results - last 24 hr 11/11/23 07:12: Sodium 141, Potassium 3.6, Chloride 115 H, Carbon Dioxide 19.0 L, Anion Gap 7, BUN 17, Creatinine 2.49 H, Estim Creat Clear Calc 20.90, Est GFR (MDRD) Af Amer 25 L, Est GFR (MDRD) Non-Af 20 L, BUN/Creatinine Ratio 6.8 L, Glucose 110 H, Calcium 7.1 L, Total Bilirubin 0.50, AST 9 L, ALT 7 L, Alkaline Phosphatase 96, Total Protein 6.9, Albumin 1.9 L, Globulin 5.0 H, Albumin/Globulin Ratio 0.4 L 11/11/23 07:18: Lactic Acid 1.2 11/12/23 04:35: WBC 26.1 H, RBC 3.42 L, Hgb 10.7 L, Hct 34.4 L, MCV 100.6 H, MCH31.3, MCHC 31.1 L, RDW Std Deviation 57.1 H, RDW Coeff of Dewey 15.5 H, Plt Count 323, MPV 10.3, Immature Gran % (Auto) 1.200 H, Neut % (Auto) 77.4 H, Lymph % (Auto) 16.6 L, Brooks % (Auto) 4.4, Eos % (Auto) 0.1, Baso % (Auto) 0.3, Absolute Neuts (auto) 20.2 H, Absolute Lymphs (auto) 4.33, Nucleated RBC % 0, Differential Comment SCANNED, Sodium 136, Potassium 3.7, Chloride 110 H, Carbon Dioxide 15.0 L, Anion Gap 11, BUN 20 H, Creatinine 3.23 H, Estim Creat Clear Calc 16.12, Est GFR (MDRD) Af Amer 18 L, Est GFR (MDRD) Non-Af 15 L, BUN/Creatinine Ratio 6.2 L, Glucose 101, Calcium 7.1 L Physical Exam Const alert and no apparent distress HEENT head/scalp atraumatic and moist oral mucous membranes Resp normal respiratory effort, no retractions, no use of accessory muscles and clearto auscultation bilaterally Cardio regular rate, regular rhythm, S1 normal heart sound and S2 normal heart sound GI normal to inspection, nondistended, normoactive bowel sounds, soft to palpation,non-tender and non-distended GI Narrative: no CVA tenderness. Neuro Sensorium / Orientation: awake and alert Assessment & Plan Assessment/Plan (1) Acute UTI: (2) Sepsis: QUALIFIERS: Sepsis acute organ dysfunction status: without acute organ dysfunction Sepsis type: sepsis due to unspecified organism Qualified Code(s): A41.9 - Sepsis, unspecified organism (3) Chronic kidney disease: QUALIFIERS: Chronic kidney disease stage: stage 4 (severe) Qualified Code(s): N18.4 - Chronic kidney disease, stage 4 (severe) (4) Leukocytosis: QUALIFIERS: Leukocytosis type: unspecified Qualified Code(s): D72.829 - Elevated white blood cell count, unspecified PLAN: Plan Acute UTI * Uncomplicated. * Failed outpt abx w cephalexin. * qSOFA 0 on admission. Therefore, sepsis not present. * Continue meropenem. DC linezolid. H/O Klebsiella pneumonia treated with cephalexin. More recently E. coli. Follow up cultures. Tachycardia * ongoing * sinus on telemetry. Likely secondary to underlying infection. Will give an additional liter of IVF. Chronic conditions: * Chronic kidney disease stage IIIb-IV; with history of atriovenostomy for renal dialysis in September 2021, * Essential hypertension continue amlodpidine * Hyperlipidemia (with history of anaphylaxis to statins) * Hypothyroidism - levothyroxine * Previous history of tobacco abuse * History of mild intermittent asthma - Stable with no evidence of acute flare at this time. BDs PRN. * Chronic gout - Stable no evidence of acute flare. DVT prophylaxis - Lovenox 30 mg sq daily Charges/Coding Visit Charges Inpatient E&M: 02164 Subs Hosp L2 11/12/23 1042 <Electronically signed by Rafa Lofton DO> Cosigner Signature (if applicable): CC: ~ Signed [facility] Work Phone: 1(370) 844-852612-24-2023 Progress note Author Rafa Lofton [facility] November 11, 2023 11:07am Note Date/Time November 11, 2023 7:32am [facility] Medical Records Department [address] [place] [address] Progress Note - Hospitalist 11/11/23722 MR#: [id number] Acct: [id number] Name: TODD DELONG Rep #:[id number] : 1950 73 From: Rafa Lofton DO PCP: Dr. Gerardo García MD Status:ADM I N Location: [place] [address] Reason for Visit Reason for Visit: Diagnoses Sepsis, unspecified organism (11/10/23) Elevated white blood cell count, unspecified (11/10/23) Chronic kidney disease, stage 4 (severe) (11/10/23) Urinary tract infection, site not specified (11/10/23) Subjective Subjective Feels well. No new events overnight. Objective Data Objective Data Vital Signs: Vital Signs Temp Pulse Resp BP Pulse Ox O2 Del Method 36.8 C 101 H 18 135/69 H 99 Room Air 11/11/23 04:47 11/11/23 04:47 11/11/23 04:47 11/11/23 04:47 11/11/23 04:47 11/11/23 04:47 Oxygen Delivery Method Room Air Weight: 77.8 kg Body Mass Index (BMI) 26.0 Intake & Output: Intake and Output for Last 24 Hours 11/09/23 11/10/23 11/11/23 23:59 23:59 23:59 Intake Total 1050 / 1050 2560.75 / 2560.75 Balance 1050 / 1050 2560.75 / 2560.75 Lab / Micro Data 11/11/23 07:12 11/11/23 07:12 Labs: Laboratory Results - last 24 hr 11/10/23 20:15: Urine Color Yellow, Urine Clarity Cloudy, Urine pH 6.5, Ur Specific Parks 1.010, Urine Protein 100 H, Urine Glucose (UA) Normal, Urine Ketones Negative, Urine Occult Blood 150 H, Urine Nitrite Negative, Urine Bilirubin Negative, Urine Urobilinogen Normal, Ur Leukocyte Esterase 500 H, Urine RBC 0 SEEN, Urine WBC >100 SEEN, Ur Squamous Epith Cells 0 SEEN, Urine Bacteria 0 SEEN, Urine Mucus 0 SEEN 11/10/23 20:25: WBC 21.9 H, RBC 3.91 L, Hgb 12.3, Hct 38.3, MCV 98.0, MCH 31.5, MCHC 32.1, RDW Std Deviation 54.4 H, RDW Coeff of Dewey 15.4 H, Plt Count 408, MPV10.2, Immature Gran % (Auto) 0.600, Neut % (Auto) 56.4, Lymph % (Auto) 36.1, Brooks % (Auto) 5.9, Eos % (Auto) 0.6, Baso % (Auto) 0.4, Absolute Neuts (auto) 12.4 H, Absolute Lymphs (auto) 7.90 H, Nucleated RBC % 0.1, Differential CommentSCANNED, Sodium 139, Potassium 3.6, Chloride 110 H, Carbon Dioxide 19.0 L, AnionGap 10, BUN 15, Creatinine 2.40 H, Estim Creat Clear Calc 21.69, Est GFR (MDRD) Af Amer 26 L, Est GFR (MDRD) Non-Af 21 L, BUN/Creatinine Ratio 6.2 L, Glucose 111 H, Lactic Acid 1.9, Calcium 7.6 L, Total Bilirubin 0.80, AST 13 L, ALT 11 L,Alkaline Phosphatase 112, Total Protein 8.3 H, Albumin 2.5 L, Globulin 5.8 H, Albumin/Globulin Ratio 0.4 L 11/10/23 23:54: Lactic Acid 0.9 11/11/23 07:12: WBC 16.2 H, RBC 3.47 L, Hgb 10.9 L, Hct 35.5 L, MCV 102.3 H, MCH31.4, MCHC 30.7 L, RDW Std Deviation 57.0 H, RDW Coeff of Dewey 15.5 H, Plt Count 316, MPV 9.9, Immature Gran % (Auto) 0.800, Neut % (Auto) 70.1 H, Lymph % (Auto)22.1, Brooks % (Auto) 6.4, Eos % (Auto) 0.2, Baso % (Auto) 0.4, Absolute Neuts (auto) 11.4 H, Absolute Lymphs (auto) 3.57, Nucleated RBC % 0 Physical Exam Const alert and no apparent distress Neck no lymphadenopathy Resp normal respiratory effort, no retractions, no use of accessory muscles and clearto auscultation bilaterally Cardio regular rate, regular rhythm, S1 normal heart sound and S2 normal heart sound GI normal to inspection, nondistended, normoactive bowel sounds, soft to palpation,non-tender and non-distended Extremity normal to inspection Neuro Sensorium / Orientation: awake and alert Assessment & Plan Assessment/Plan (1) Acute UTI: (2) Sepsis: QUALIFIERS: Sepsis acute organ dysfunction status: without acute organ dysfunction Sepsis type: sepsis due to unspecified organism Qualified Code(s): A41.9 - Sepsis, unspecified organism (3) Chronic kidney disease: QUALIFIERS: Chronic kidney disease stage: stage 4 (severe) Qualified Code(s): N18.4 - Chronic kidney disease, stage 4 (severe) (4) Leukocytosis: QUALIFIERS: Leukocytosis type: unspecified Qualified Code(s): D72.829 - Elevated white blood cell count, unspecified PLAN: Plan Acute UTI * Uncomplicated. * Failed outpt abx w cephalexin. * qSOFA 0 on admission. Therefore, sepsis not present. * Continue meropenem. H/O Klebsiella pneumonia treated with cephalexin. More recently E. coli. Follow up cultures. Chronic conditions: * Chronic kidney disease stage IIIb-IV; with history of atriovenostomy for renal dialysis in September 2021, * Essential hypertension continue amlodpidine * Hyperlipidemia (with history of anaphylaxis to statins) * Hypothyroidism - levothyroxine * Previous history of tobacco abuse * History of mild intermittent asthma - Stable with no evidence of acute flare at this time. BDs PRN. * Chronic gout - Stable no evidence of acute flare. DVT prophylaxis - Lovenox 30 mg sq daily Charges/Coding Visit Charges Inpatient E&M: 42434 Subs Hosp L2 11/11/23 1107 <Electronically signed by Rafa Lofton DO> Cosigner Signature (if applicable): CC: ~ Signed [facility] Work Phone: [phone] 717-553612-24-2023 History and physical note Author Andres Fraser [facility] November 11, 2023 6:53am Note Date/Time November 10, 2023 10:59pm [facility] Medical Records Department [address] [place] [address] H&P Exam - Hospitalist 11/10/232220 MR#: [id number] Acct: [id number] Name: TODD DELONG Rep #:[id number] : 1950 73 From: Andres Holt DO PCP: Dr. Gerardo García MD Status:ADM I N Location: [facility] [id number] Date of Admission: 11/10/23 Date of Service: 11/10/23 Chief Complaint: Worsening UTI in spite of Keflex HPI Narrative TODD DELONG, is a 73 F with a past medical history of essential hypertension, hyperlipidemia (with history of anaphylaxis to statins), hypothyroidism, chronickidney disease stage IIIb-IV; with history of atriovenostomy for renal dialysis in September 2021, history of multidrug-resistant UTI's with sepsis due to Pseudomonas requiring treatment with IV Merrem, multiple listed antibiotic allergies to Bactrim, Levaquin and clindamycin, history of bilateral hydronephrosis; requiring double-J stent catheters, history of MRSA, history of tobacco abuse, history of COVID-pneumonia (2019), history of mild intermittent asthma, history of cervical cancer, history of atrophic vaginitis, history of biliary stent, history of Dunbar's palsy, history of vertigo, gout, history of admission here approximately 8 weeks ago from August 02, 2023 to August 07, 2023 for UTI secondary to multidrug-resistant Pseudomonas complicated by hydronephrosis with ureteral stents placed by urology which required PICC line placement for IV antibiotics plus another admission here from September 20, 2023 to September 22, 2023 for UTI with acute kidney injury in the setting of chronic kidney disease stage IV with patient then once again having been recently diagnosed with another UTI a few days ago for which she was started on oral Keflex who presents to [facility] complaining of worsening UTI and spite of Keflex. Ms. Delong reports her symptoms began approximately 1 day prior to admission with dysuria and chills that have been harbingers of her previous bouts of sepsis. She also admits to a temperature of 99.7 with some nausea and loose stools but she denies vomiting, shortness of breath or abdominal pain. In the ER her urinalysis was positive for acute cystitis; without hematuria complicated by leukocytosis of 21.9 present on admission and sinus tachycardia 140 bpm with low-grade temperature worrisome for underlying recurrent sepsis in the setting of failure of outpatient antibiotic treatment with oral Keflex and she was then then admitted to the general medical floor with telemetry monitoring for treatment under the sepsis protocol for a stay that is expected to be greater than 48 hours. [facility] Medical History Acute diarrhea LULY (acute kidney injury) Asthma Dunbar's palsy Bilateral hydronephrosis Bladder disease Blood disorder Bruising Cancer Cardiology follow-up encounter Cervical cancer Chronic renal failure, stage 4 (severe) Dialysis patient Easy bruising Essential hypertension Former smoker Gout High anion gap metabolic acidosis History of biliary stent insertion History of cervical cancer History of Clostridium difficile infection History of COVID-19 History of irregular heartbeat History of renal disease Hx of cataract Hx of echocardiogram Hx of vertigo Hyperlipidemia Hypertension Hypokalemia Hyponatremia Kidney disease Leg cramps Lymphocytosis Mild intermittent asthma MRSA infection Near syncope Problem with dialysis access Sepsis Status post placement of implantable loop recorder (~03/29/20) Thyroid disease Urinary incontinence UTI (urinary tract infection) Wears dentures Home Medications albuterol sulfate 90 mcg/actuation aerosol inhaler (Ventolin HFA) 2 puff inhalation Q6H PRN Sob &/Or Wheezing 07/25/18 [History Last Taken 11/10/23] potassium chloride 20 mEq tablet,extended release(part/cryst) 20 meq PO DAILY supplement 09/01/20 [History Last Taken 11/10/23] amlodipine 2.5 mg tablet 2.5 mg PO DAILY BP #90 tabs 08/12/21 [Rx Last Taken 11/10/23] ipratropium bromide 42 mcg (0.06 %) nasal spray 2 spray intranasal DAILY allergie 11/23/21 [History Last Taken 11/10/23] pantoprazole 40 mg tablet,delayed release 40 mg PO DAILY GERD 03/27/23 [History Last Taken 11/10/23] cephalexin 500 mg capsule 500 mg PO Q6H UTI #40 caps 09/22/23 [Rx Last Taken 11/10/23] cephalexin 500 mg capsule 500 mg PO Q6 #20 CAPSULES 11/06/23 [Rx Last Taken Unknown] Allergy/AdvReac Type Severity Reaction Status Date / Time clindamycin Allergy Severe unsure of Verified 11/10/23 20:07 reaction pravastatin Allergy Severe Chest Verified 11/10/23 20:07 tightness procaine [From Novocain] Allergy Severe NEEDS Verified 11/10/23 20:07 FOLLOW-UP sulfamethoxazole Allergy Severe Shortness Verified 10/09/23 13:34 [From Bactrim] of breath trimethoprim [From Bactrim] Allergy Severe Shortness Verified 11/10/23 20:07 of breath levofloxacin [From Levaquin] Allergy UNSURE OF Verified 11/10/23 20:07 REACTION [id number] Reductase Allergy Anaphylaxis Verified 11/10/23 20:07 Inhibitor methylprednisolone AdvReac Severe Pain in Verified 11/10/23 20:07 joints Family History Father , 32 yrs old CAD (coronary artery disease) History of coronary artery bypass surgery Mother Cancer Lung CA, Hx tobacco use. Surgical History History of arteriovenostomy for renal dialysis (~09/2021) History of cardiac catheterization (~01/08/18) History of cardiac catheterization History of cholecystectomy History of excision of mass History of hysterectomy History of loop recorder history of radium implant Hx of cystoscopy S/P arteriovenous (AV) fistula creation Social History household members: spouse and children number of children: 6 current occupational status: retired history of recent travel: No Smoking Status: Former smoker second hand exposure: No alcohol intake: never substance use type: does not use what type of physical activity do you participate in: walking saurabh/mu-ism: Non-Zoroastrianism/Independent seatbelt use: always do you feel safe at home: Yes additional social history: - Fernando PALOMO Narrative Review of systems: General: Patient does admit to low-grade fever and chills. HENT: Denies headache, denies stuffy nose, denies sore throat EYES: Denies changes in vision Resp: Denies cough, denies shortness of breath Cardiac: Denies chest pain GI: Denies abdominal pain, denies changes in bowel, had some nausea : Patient admits to feeling like she is getting septic similar to her previousadmissions. Extremity: Denies swelling Musculoskeletal: Feels somewhat generally weak and unwell Neuro: Denies any numbness/tingling Heme: Denies any bleeding or bruising Skin: Denies rashes or jaundice Psychiatric: No complaints voiced related to uncontrolled anxiety or depression. Endocrine: No polyuria, polydipsia or polyphagia. The rest of the 14 point ROS was negative except for positives in HPI. Vital Signs Vital Signs Vital Signs: 11/10/23 20:04 11/10/23 21:58 11/10/23 22:00 Temperature 97.2 F L 98.3 F 98.3 F Temperature Source Temporal Temporal Pulse Rate 140 H 76 76 Respiratory Rate 16 16 16 Blood Pressure 121/73 H 126/54 H 126/54 H Blood Pressure Mean 89 78 78 Pulse Ox 97 94 94 Oxygen Delivery Method Room Air Room Air Weight Weight: 170 lb 6.677 oz Body Mass Index (BMI) 25.9 Physical Exam Const alert, oriented x3, no apparent distress and average body habitus General Appearance: cooperative HEENT normocephalic, head/scalp atraumatic, hearing grossly normal bilaterally, moist oral mucous membranes and oropharynx normal Eyes PERRL and EOMs intact bilaterally Neck no lymphadenopathy and supple Resp normal respiratory effort, no retractions, no use of accessory muscles and clearto auscultation bilaterally Cardio regular rate and regular rhythm GI normal to inspection, nondistended, normoactive bowel sounds, soft to palpation,non-tender and non-distended Extremity normal to inspection, full ROM and no clubbing, cyanosis or edema Skin Skin Narrative: Patient has no evidence of rash, abrasions or jaundice at this time. Neuro oriented x3, CN's II-XII intact bilaterally, moves all extremities and no focal motor deficits Sensorium / Orientation: awake, alert, oriented to person, oriented to place andoriented to time Speech: speech normal Motor Exam: strength 5/5 throughout Psych affect normal Results Medical Records Data Attestation: I reviewed the patient's medical records Lab / Micro Data Attestation: I reviewed the patient's lab results. 11/10/23 20:25 11/10/23 20:25 Labs: Laboratory Results - last 24 hr 11/10/23 20:15: Urine Color Yellow, Urine Clarity Cloudy, Urine pH 6.5, Ur Specific Parks 1.010, Urine Protein 100 H, Urine Glucose (UA) Normal, Urine Ketones Negative, Urine Occult Blood 150 H, Urine Nitrite Negative, Urine Bilirubin Negative, Urine Urobilinogen Normal, Ur Leukocyte Esterase 500 H, Urine RBC 0 SEEN, Urine WBC >100 SEEN, Ur Squamous Epith Cells 0 SEEN, Urine Bacteria 0 SEEN, Urine Mucus 0 SEEN 11/10/23 20:25: WBC 21.9 H, RBC 3.91 L, Hgb 12.3, Hct 38.3, MCV 98.0, MCH 31.5, MCHC 32.1, RDW Std Deviation 54.4 H, RDW Coeff of Dewey 15.4 H, Plt Count 408, MPV10.2, Immature Gran % (Auto) 0.600, Neut % (Auto) 56.4, Lymph % (Auto) 36.1, Brooks % (Auto) 5.9, Eos % (Auto) 0.6, Baso % (Auto) 0.4, Absolute Neuts (auto) 12.4 H, Absolute Lymphs (auto) 7.90 H, Nucleated RBC % 0.1, Differential CommentSCANNED, Sodium 139, Potassium 3.6, Chloride 110 H, Carbon Dioxide 19.0 L, AnionGap 10, BUN 15, Creatinine 2.40 H, Estim Creat Clear Calc 21.69, Est GFR (MDRD) Af Amer 26 L, Est GFR (MDRD) Non-Af 21 L, BUN/Creatinine Ratio 6.2 L, Glucose 111 H, Lactic Acid 1.9, Calcium 7.6 L, Total Bilirubin 0.80, AST 13 L, ALT 11 L,Alkaline Phosphatase 112, Total Protein 8.3 H, Albumin 2.5 L, Globulin 5.8 H, Albumin/Globulin Ratio 0.4 L Assessment & Plan Assessment/Plan (1) Acute UTI: (2) Sepsis: QUALIFIERS: Sepsis acute organ dysfunction status: without acute organ dysfunction Sepsis type: sepsis due to unspecified organism Qualified Code(s): A41.9 - Sepsis, unspecified organism (3) Chronic kidney disease: QUALIFIERS: Chronic kidney disease stage: stage 4 (severe) Qualified Code(s): N18.4 - Chronic kidney disease, stage 4 (severe) (4) Leukocytosis: QUALIFIERS: Leukocytosis type: unspecified Qualified Code(s): D72.829 - Elevated white blood cell count, unspecified PLAN: Plan 1. Acute cystitis; without hematuria with leukocytosis of 21.9 present on admission, sinus tachycardia 140 bpm present on admission and fever in the setting of failed outpatient treatment with Keflex - Admit to general medical floor with telemetry monitoring under sepsis protocol. Continue broad-spectrum antibiotics with IV Merrem given patient's extensive allergy profile, and await culture and sensitivity data. Give Tylenol as needed for mild to moderate level1-5 out of 10 pain or fever. Give morphine IV as needed for severe level 6-10 out of 10 pain. 2. Recent history of admission here approximately 8 weeks ago from August 02, 2023 to August 07, 2023 for UTI secondary to multidrug-resistant Pseudomonas complicated by hydronephrosis with ureteral stents placed by urologywhich required PICC line placement for IV antibiotics plus another admission here from September 20, 2023 to September 22, 2023 for UTI with acute kidney injury in the setting of chronic kidney disease stage IV multiple listed antibiotic allergies to Bactrim, Levaquin and clindamycin + known history of MRSA complicating #1 - Noted. Patient should be considered for suppressive antibiotics due to pattern of serial readmission. Therefore, we will consult infectious disease see this patient on rounds in the a.m. for further recommendations with help appreciated in advance. 3. Chronic kidney disease stage IIIb-IV; with history of atriovenostomy for renal dialysis in September 2021, history of multidrug-resistant UTI's with sepsis due to Pseudomonas requiring treatment with IV Merrem chronically followed by urology and nephrology - Noted. 4. Essential hypertension - Hold scheduled antihypertensives in light of #1. Give IV hydralazine as needed for systolic blood pressure greater than or equal to 160 mmHg. 5. Hyperlipidemia (with history of anaphylaxis to statins) - Noted. 6. Hypothyroidism - Resume Synthroid as previous. 7. Previous history of tobacco abuse - Noted. 8. History of COVID-pneumonia (2019) - Noted. 9. History of mild intermittent asthma - Stable with no evidence of acute flareat this time. If as needed nebulizers as previous. 10. History of cervical cancer - Noted. 11. History of atrophic vaginitis - Stable. 12. History of biliary stent - Noted. 13. History of Dunbar's palsy- Stable. 14. History of vertigo - Noted. Give Antivert as needed. 15. Chronic gout - Stable no evidence of acute flare. 16. DVT prophylaxis - Lovenox 30 mg sq daily (due to diminished renal function)plus SCD's. Total time: Approximately 55 minutes. Update: Patient was rechecked approximately 4 hours after admission and she was noted to have a normal lactate of 0.9 mmol/L present on admission in the normal range. Her blood pressure has been good and she denies new complaints. RN was updated with plan. Sepsis Attestation Sepsis Attestation: Agree w/Sepsis Date exam was performed: 11/10/23 Time exam was performed: 23:00 Possible Source of Sepsis: Genitourinary Sepsis Organ Dysfunction Criteria Present: Creatinine > 2.0 mg/dL Fluid Resuscitation Fluid resuscitation indicated?: Yes Fluid Resuscitation ordered: 30 ml/kg fluid bolus ordered Amount of fluid ordered: 3 Sepsis Note Date exam was performed: 11/11/23 Time exam was performed: 03:00 Sepsis Attestation: Sepsis re-evaluation was performed Response to fluids: Fluid responsive hypotension Charges/Coding Visit Charges Inpatient E&M: 14845 Init Hosp L2 11/11/23 0653 <Electronically signed by Andres Maurer DO> Cosigner Signature (if applicable): CC: Dr. Andres Maurer DO; Dr. Gerardo García MD~ Signed [facility] Work Phone: [phone]) 866-483512-24-2023 Discharge summary Author South Gutiérrez [facility] November 10, 2023 10:27pm Note Date/Time November 10, 2023 9:10pm [facility] Medical Records Department [address] [place] [address] Emergency Department Summary 11/10/23 MR#: [id number] Acct: [id number] Name: TODD DELONG MONI Rep #:[id number] : 1950 73 From: South Gutiérrez MD PCP: Dr. Gerardo García MD Status:REG E R Location: ED HPI History of Present Illness Chief Complaint: General Illness Informant: patient Onset/Context/Timing Onset: Today Context: Gradual Onset Timing: Continuous Current Severity: Mild Maximum Severity: Mild Narrative Narrative: 73-year-old female history of chronic kidney disease previously was on dialysis now is off dialysis. She has bilateral ureteral stents. Gets recurrent UTIs. Has been septic in the past. Was seen the other day. Diagnosed with a UTI and started on cephalexin. States today she had a temperature of 99.7 with some chills beginning yesterday was concerned she may be becoming septic and came in to be evaluated. She denies vomiting. She has had some mild loose stools. No significant cough. No shortness of breath. No significant abdominal pain. Prior similar symptoms: Yes Recent Illness/Hospitalization: Yes PFSH PFSH Medical History Acute diarrhea LULY (acute kidney injury) Asthma Dunbar's palsy Bilateral hydronephrosis Bladder disease Blood disorder Bruising Cancer Cardiology follow-up encounter Cervical cancer Chronic renal failure, stage 4 (severe) Dialysis patient Easy bruising Essential hypertension Former smoker Gout High anion gap metabolic acidosis History of biliary stent insertion History of cervical cancer History of Clostridium difficile infection History of COVID-19 History of irregular heartbeat History of renal disease Hx of cataract Hx of echocardiogram Hx of vertigo Hyperlipidemia Hypertension Hypokalemia Hyponatremia Kidney disease Leg cramps Lymphocytosis Mild intermittent asthma MRSA infection Near syncope Problem with dialysis access Sepsis Status post placement of implantable loop recorder (~03/29/20) Thyroid disease Urinary incontinence UTI (urinary tract infection) Wears dentures Home Medications albuterol sulfate 90 mcg/actuation aerosol inhaler (Ventolin HFA) 2 puff inhalation Q6H PRN Sob &/Or Wheezing 07/25/18 [History Last Taken 11/10/23] potassium chloride 20 mEq tablet,extended release(part/cryst) 20 meq PO DAILY supplement 09/01/20 [History Last Taken 11/10/23] amlodipine 2.5 mg tablet 2.5 mg PO DAILY BP #90 tabs 08/12/21 [Rx Last Taken 11/10/23] ipratropium bromide 42 mcg (0.06 %) nasal spray 2 spray intranasal DAILY allergie 11/23/21 [History Last Taken 11/10/23] pantoprazole 40 mg tablet,delayed release 40 mg PO DAILY GERD 03/27/23 [History Last Taken 11/10/23] cephalexin 500 mg capsule 500 mg PO Q6H UTI #40 caps 09/22/23 [Rx Last Taken 11/10/23] cephalexin 500 mg capsule 500 mg PO Q6 #20 CAPSULES 11/06/23 [Rx Last Taken Unknown] Allergy/AdvReac Type Severity Reaction Status Date / Time clindamycin Allergy Severe unsure of Verified 11/10/23 20:07 reaction pravastatin Allergy Severe Chest Verified 11/10/23 20:07 tightness procaine [From Novocain] Allergy Severe NEEDS Verified 11/10/23 20:07 FOLLOW-UP sulfamethoxazole Allergy Severe Shortness Verified 10/09/23 13:34 [From Bactrim] of breath trimethoprim [From Bactrim] Allergy Severe Shortness Verified 11/10/23 20:07 of breath levofloxacin [From Levaquin] Allergy UNSURE OF Verified 11/10/23 20:07 REACTION Tfkqafz-YOF-TlC Reductase Allergy Anaphylaxis Verified 11/10/23 20:07 Inhibitor methylprednisolone AdvReac Severe Pain in Verified 11/10/23 20:07 joints Family History Father , 32 yrs old CAD (coronary artery disease) History of coronary artery bypass surgery Mother Cancer Lung CA, Hx tobacco use. Surgical History History of arteriovenostomy for renal dialysis (~09/2021) History of cardiac catheterization (~01/08/18) History of cardiac catheterization History of cholecystectomy History of excision of mass History of hysterectomy History of loop recorder history of radium implant Hx of cystoscopy S/P arteriovenous (AV) fistula creation Social History household members: spouse and children number of children: 6 current occupational status: retired history of recent travel: No Smoking Status: Former smoker second hand exposure: No alcohol intake: never substance use type: does not use what type of physical activity do you participate in: walking saurabh/mu-ism: Non-Zoroastrianism/Independent seatbelt use: always do you feel safe at home: Yes additional social history: - Fernando PALOMO ROS ED ROS Narrative Low-grade temperature. Chills. No stools. Review of Systems ROS Unobtainable: Denies due to encephalopathy Constitutional Constitutional ED: Reports chills, fever(s) and subjective Eyes Eyes: Denies blurry vision ENT ENT ED: Denies ear pain Cardiovascular Cardiovascular: Denies chest pain Respiratory/Chest Respiratory/Chest: Denies cough or dyspnea Gastrointestinal Gastrointestinal: Reports diarrhea; Denies abdominal pain, constipation, melena,nausea or vomiting Genitourinary Genitourinary ED: Denies dysuria or hematuria Musculoskeletal Musculoskeletal: Denies arthralgias Integumentary Denies abscess Neurologic Neurologic: Denies headache(s) Psychiatric Psychiatric: Denies anxiety or depression Endocrine Endocrinology: Denies cold intolerance Hematologic/Lymphatic Hematologic/Lymphatic: Reports none Allergic/Immunologic Allergic/Immunologic ED: Denies mouth swelling, tongue swelling or urticaria EXAM Physical Exam Narrative Exam Narrative: 73-year-old female no acute distress. Vital signs are stable. Currently afebrile. Heart rate 140. Blood pressure 121/73. Pulse ox 97% on room air no hypoxia. H EENT exam unremarkable. Neck nontender. Lungs clear to auscultation bilaterally. Heart tachycardic no murmur. Chest wall nontender. Abdomen soft nontender. Nondistended normal bowel sounds without peritoneal signs. Moving all 4 extremities. Calves are nontender without edema or cords. Neurologically she is awake alert with no focal motor deficits. Const Vital Signs: 11/10/23 20:04 Temperature 97.2 F L Temperature Source Temporal Pulse Rate 140 H Respiratory Rate 16 Blood Pressure 121/73 H Blood Pressure Mean 89 Pulse Ox 97 Oxygen Delivery Method Room Air Positive well nourished and well developed; Negative for cachectic, contracturesor unkempt General Appearance ED: well developed and NAD; Negative for unkempt, cachectic, contractures, cyanotic, diaphoretic or pallor Nutritional Appearance: Negative for cachectic HEENT Reports moist mucous membranes; Denies dry mucous membranes Negative for trauma or tenderness Mouth ED: No dry mucous membranes Mouth: No dry mucous membranes Eyes PERRL and EOMs intact bilaterally General Eye ED: Negative for pale conjunctiva or scleral icterus Neck no lymphadenopathy, supple and no JVD General: Negative for tenderness Chest Wall inspection of chest normal and palpation of chest normal Chest: Negative for other Resp normal respiratory effort and clear to auscultation bilaterally Effort and Inspection: Negative for retractions Auscultation: Negative for rales, rhonchi or wheezes Cardio regular rhythm, S1 normal heart sound, S2 normal heart sound and no murmurs; Negative for regular rate Rate: tachycardic GI normal to inspection, nondistended, normoactive bowel sounds, non-tender, non-distended and no masses Auscultation: normoactive bowel sounds Palpation: Negative for tender, guarding, mass or rebound tenderness present Back/Spine no CVA tenderness General Back: Negative for CVA tenderness Cervical Spine: Negative for cervical spine tenderness Thoracic Spine / Upper Back: Negative for thoracic spinal tenderness or paraspinal muscle tenderness Lumbar Spine / Lower Back: Negative for lumbar spinal tenderness Extremity normal to inspection General Extremety ED: Negative for edema or tenderness General Extremity: Negative for edema Neuro oriented x3 and CN's II-XII intact bilaterally Sensorium / Orientation: alert; Negative for orientation impaired, lethargic or stuporous Motor Exam: strength 5/5 throughout Psych mental status grossly normal Appearance: Negative for unkempt Attitude: No agitated Mood & Affect: Negative for depressed, anxious or tearful Skin no rashes or lesions noted, no wounds and skin turgor normal General Skin Exam: elasticity normal; Negative for jaundice or pallor Lesions: No lesion noted Rashes: No rashes noted Trauma: Negative for abrasion Wounds: Negative for wounds noted MDM MDM MDM Narrative Medical decision making narrative: 73-year-old female recent UTI history of prior sepsis from UTIs. Presents due to low-grade fever and concerned she might be becoming septic again. Rizwan exam patient doing well. At 9:10 PM. Given her history of UTI developing urosepsis. I plan on admitting her. Give her a dose of IV Rocephin. Speak to the hospitalist about admission. Clinically she is stable and her vital signs are stable. History & Record Review Discussion w/independent historian: Patient and Family Additional record(s) reviewed:: Prior inpatient record, Prior outpatient record,Prior ED visit and Prior labs Lab Data Attestation: I reviewed the patient's lab results. Lab results narrative: CBC elevated 21.9. Higher than the most recent lab. H&H 12.3 and 38. No bands. Platelets 408. Electrolytes show a gap of 10. BUN of 15 creatinine 2.4which is a history of chronic kidney disease and has had creatinines much higherthan this. Liver enzymes unremarkable. Lactic acid 1.9. Urinalysis shows greater than 100 white cells. Currently no bacteria. Negative nitrites. Labs: Laboratory Results - last 24 hr 11/10/23 11/10/23 20:15 20:25 WBC 21.9 H RBC 3.91 L Hgb 12.3 Hct 38.3 MCV 98.0 MCH 31.5 MCHC 32.1 RDW Std Deviation 54.4 H RDW Coeff of Dewey 15.4 H Plt Count 408 MPV 10.2 Immature Gran % (Auto) 0.600 Neut % (Auto) 56.4 Lymph % (Auto) 36.1 Brooks % (Auto) 5.9 Eos % (Auto) 0.6 Baso % (Auto) 0.4 Absolute Neuts (auto) 12.4 H Absolute Lymphs (auto) 7.90 H Nucleated RBC % 0.1 Sodium 139 Potassium 3.6 Chloride 110 H Carbon Dioxide 19.0 L Anion Gap 10 BUN 15 Creatinine 2.40 H Estim Creat Clear Calc 21.69 Est GFR (MDRD) Af Amer 26 L Est GFR (MDRD) Non-Af 21 L BUN/Creatinine Ratio 6.2 L Glucose 111 H Lactic Acid 1.9 Calcium 7.6 L Total Bilirubin 0.80 AST 13 L ALT 11 L Alkaline Phosphatase 112 Total Protein 8.3 H Albumin 2.5 L Globulin 5.8 H Albumin/Globulin Ratio 0.4 L Urine Color Yellow Urine Clarity Cloudy Urine pH 6.5 Ur Specific Parks 1.010 Urine Protein 100 H Urine Glucose (UA) Normal Urine Ketones Negative Urine Occult Blood 150 H Urine Nitrite Negative Urine Bilirubin Negative Urine Urobilinogen Normal Ur Leukocyte Esterase 500 H Urine RBC 0 SEEN Urine WBC >100 SEEN Ur Squamous Epith Cells 0 SEEN Urine Bacteria 0 SEEN Urine Mucus 0 SEEN Discharge Plan Triage Chief Complaint: General Illness ED Provider: South Gutiérrez Dx/Rx/DC Orders Prescriptions: No Action albuterol sulfate [Ventolin HFA] 90 mcg/actuation HFA aerosol inhaler 2 puff INHALATION Q6H PRN (Reason: Sob &/Or Wheezing) pantoprazole 40 mg tablet,delayed release (DR/EC) 40 mg PO DAILY Hold Instructions: Order Completed potassium chloride 20 MEQ tablet,ER particles/crystals 20 meq PO DAILY ipratropium bromide 42 mcg (0.06 %) spray,non-aerosol 2 spray INTRANASAL DAILY cephalexin 500 mg capsule 500 mg PO Q6H Qty: 40 0RF cephalexin [cephalexin] 500 mg capsule 500 mg PO Q6 Qty: 20 0RF amlodipine 2.5 mg tablet 2.5 mg PO DAILY Qty: 90 3RF Primary Care Provider: Gerardo García Chi Referrals: Gerardo García Chi, MD [Primary Care Provider] - What to do if you have Problems For any increased pain, shortness of breath, bleeding, nausea or vomiting, chestpain, or any unexpected problems, contact your Primary Care Provider. Call [facility] ([phone]) or report to the closest Emergency Room. Call 911 if necessary. 11/10/232226 <Electronically signed by South Gutiérrez MD> Cosigner Signature (if applicable): CC: Dr. Gerardo García MD ~ Signed [facility] Work Phone: 1(320) 585-788612-04-2023 Miscellaneous Notes* Telephone Encounter - Berna Matta - 10/22/2023 2:00 PM EST Pt had stent placed on 10/11 how to proceed? [facility] Dis[facility] summary Author Carlene Bower [facility] October 09, 2023 4:39pm Note Date/Time October 09, 2023 2:01pm [facility] Medical Records Department [address] [place] [address] Emergency Department Summary 10/09/23 MR#: [id number] Acct: [id number] Name: TODD DELONG Rep #:[id number] : 1950 73 From: Carlene Bower MD PCP: Dr. Gerardo García MD Status:REG E R Location: ED HPI History of Present Illness Chief Complaint: Abn Labs Informant: patient Narrative Narrative: Patient presents at the urging of her primary care physician. Patient states she was called by Dr. García's office and told that her labs that she had drawn yesterday were abnormal and she needed to go to the hospital for admission. Patient reports generalized fatigue and ongoing diarrhea for quite some time. She states that she was given a dose of an antibiotic in the office yesterday and a prescription was sent to the pharmacy which she has not yet picked up. She believes this was for urinary infection. Patient has ureteral stents bilaterally that are exchanged every 3 months or so. She states with this she tends to get chronic UTIs. [facility] Medical History Acute diarrhea LULY (acute kidney injury) Asthma Dunbar's palsy Bilateral hydronephrosis Bladder disease Blood disorder Bruising Cancer Cardiology follow-up encounter Cervical cancer Chronic renal failure, stage 4 (severe) Dialysis patient Easy bruising Essential hypertension Former smoker Gout High anion gap metabolic acidosis History of biliary stent insertion History of cervical cancer History of Clostridium difficile infection History of COVID-19 History of irregular heartbeat History of renal disease Hx of cataract Hx of echocardiogram Hx of vertigo Hyperlipidemia Hypertension Hypokalemia Hyponatremia Kidney disease Leg cramps Lymphocytosis Mild intermittent asthma MRSA infection Near syncope Problem with dialysis access Sepsis Status post placement of implantable loop recorder (~03/29/20) Thyroid disease Urinary incontinence UTI (urinary tract infection) Wears dentures Home Medications albuterol sulfate 90 mcg/actuation aerosol inhaler (Ventolin HFA) 2 puff inhalation Q6H PRN Sob &/Or Wheezing 07/25/18 [History Last Taken 08/01/23] metoprolol tartrate 50 mg tablet 50 mg PO BID blood pressure 01/27/19 [History Last Taken 08/01/23] potassium chloride 20 mEq tablet,extended release(part/cryst) 20 meq PO DAILY supplement 09/01/20 [History Last Taken 08/01/23] amlodipine 2.5 mg tablet 2.5 mg PO DAILY BP #90 tabs 08/12/21 [Rx Last Taken 08/01/23] ipratropium bromide 42 mcg (0.06 %) nasal spray 2 spray intranasal DAILY allergie 11/23/21 [History Last Taken 08/01/23] pantoprazole 40 mg tablet,delayed release 40 mg PO DAILY GERD 03/27/23 [History Last Taken 08/01/23] cephalexin 500 mg capsule 500 mg PO Q6H #40 caps 09/22/23 [Rx Last Taken Unknown] Allergy/AdvReac Type Severity Reaction Status Date / Time clindamycin Allergy Severe unsure of Verified 10/09/23 16:10 reaction pravastatin Allergy Severe Chest Verified 10/09/23 13:34 tightness procaine [From Novocain] Allergy Severe NEEDS Verified 10/09/23 13:34 FOLLOW-UP sulfamethoxazole Allergy Severe Shortness Verified 10/09/23 13:34 [From Bactrim] of breath trimethoprim [From Bactrim] Allergy Severe Shortness Verified 10/09/23 13:34 of breath levofloxacin [From Levaquin] Allergy UNSURE OF Verified 10/09/23 16:10 REACTION Ykjnjsv-[id number]-[id number] Reductase Allergy Anaphylaxis Verified 10/09/23 13:34 Inhibitor methylprednisolone AdvReac Severe Pain in Verified 10/09/23 13:34 joints Family History Father , 32 yrs old CAD (coronary artery disease) History of coronary artery bypass surgery Mother Cancer Lung CA, Hx tobacco use. Surgical History History of arteriovenostomy for renal dialysis (~09/2021) History of cardiac catheterization (~01/08/18) History of cardiac catheterization History of cholecystectomy History of excision of mass History of hysterectomy History of loop recorder history of radium implant Hx of cystoscopy S/P arteriovenous (AV) fistula creation Social History household members: spouse and children number of children: 6 current occupational status: retired history of recent travel: No Smoking Status: Former smoker second hand exposure: No alcohol intake: never substance use type: does not use what type of physical activity do you participate in: walking saurabh/mu-ism: Non-Zoroastrianism/Independent seatbelt use: always do you feel safe at home: Yes additional social history: - Fernando PALOMO ED Constitutional Constitutional ED: Denies chills or fever(s) Eyes Eyes: Denies change in vision or discharge from eye(s) ENT ENT ED: Denies discharge from eye(s), rhinorrhea or sore throat Cardiovascular Cardiovascular: Denies chest pain or palpitations Respiratory/Chest Respiratory/Chest: Denies cough or dyspnea Gastrointestinal Gastrointestinal: Reports diarrhea; Denies abdominal pain, nausea or vomiting Genitourinary Genitourinary ED: Denies difficulty urinating or dysuria Musculoskeletal Musculoskeletal: Denies back pain or extremity pain Integumentary Denies Abrasions or rash Neurologic Neurologic: Reports weakness; Denies headache(s) Psychiatric Psychiatric: Denies anxiety or depression Allergic/Immunologic Allergic/Immunologic ED: Denies lip swelling or urticaria EXAM Physical Exam Const Vital Signs: 10/09/23 13:34 10/09/23 14:28 10/09/23 15:33 Temperature 97.6 F L Temperature Source Temporal Pulse Rate 96 91 Respiratory Rate 18 16 Respiratory Effort Normal Respiratory Pattern Normal Blood Pressure 119/69 111/64 Blood Pressure Mean 85 79 Pulse Ox 100 90 Oxygen Delivery Method Room Air Room Air Positive well nourished and well developed General Appearance ED: well developed HEENT Reports moist mucous membranes Eyes EOMs intact bilaterally Chest Wall inspection of chest normal and palpation of chest normal Resp normal respiratory effort and clear to auscultation bilaterally Cardio regular rate and regular rhythm GI non-tender Auscultation: normoactive bowel sounds Palpation: soft Extremity normal to inspection Neuro oriented x3 and no sensory deficits noted Motor Exam: strength 5/5 throughout Psych mental status grossly normal Skin no rashes or lesions noted MDM MDM MDM Narrative Medical decision making narrative: Patient placed on cnp. IV line initiated. Labwork obtained to evaluate for leukocytosis, anemia, and electrolyte derangement. Urinalysis obtained to evaluate for infection/hematuria. CT flank obtained to evaluate theureteral stents that she has in place. I spoke with Dr. García, patient's primary care physician. He states his primary concern was that her creatinine is climbing and yesterday was up to 4.41. He states that [facility] she has bilateral ureteral scarring that requires her to have the ureteral stents. He is concerned that they are not draining appropriately as her creatinine continues to rise. History & Record Review Discussion w/independent historian: Patient Additional record(s) reviewed:: Prior inpatient record, Prior outpatient record,Prior ED visit and Prior labs Lab Data Attestation: I reviewed the patient's lab results. Labs: Laboratory Results - last 24 hr 10/09/23 10/09/23 10/09/23 14:18 14:45 15:35 WBC 15.5 H RBC 3.76 L Hgb 11.6 L Hct 36.2 L MCV 96.3 MCH 30.9 MCHC 32.0 RDW Std Deviation 51.8 H RDW Coeff of Dewey 14.6 Plt Count 461 H MPV 10.1 Immature Gran % (Auto) 1.700 H Neut % (Auto) 64.5 Lymph % (Auto) 26.5 Brooks % (Auto) 5.7 Eos % (Auto) 1.0 Baso % (Auto) 0.6 Absolute Neuts (auto) 10.0 H Absolute Lymphs (auto) 4.11 Nucleated RBC % 0 Sodium 136 Potassium 4.3 Chloride 106 Carbon Dioxide 22.0 Anion Gap 8 BUN 44 H Creatinine 4.72 H Est GFR (MDRD) Af Amer 12 L Est GFR (MDRD) Non-Af 10 L BUN/Creatinine Ratio 9.3 L Glucose 115 H Lactic Acid Cancelled 1.3 Calcium 8.0 L Total Bilirubin 0.30 Direct Bilirubin 0.14 AST 20 ALT 20 Alkaline Phosphatase 92 Total Protein 8.3 H Albumin 2.0 L Globulin 6.3 H Urine Color Yellow Urine Clarity Cloudy Urine pH 6.0 Ur Specific Parks 1.010 Urine Protein 100 H Urine Glucose (UA) Normal Urine Ketones Negative Urine Occult Blood 250 H Urine Nitrite Negative Urine Bilirubin Negative Urine Urobilinogen Normal Ur Leukocyte Esterase 500 H Urine RBC 5-10 SEEN Urine WBC >100 SEEN Ur Squamous Epith Cells 0-5 SEEN Urine Bacteria 2+ Urine Mucus 0 SEEN Radiography Diagnostic Testing: Clinical Impression(s) from Imaging Studies Abdomen/Pelvis CT 10/09/23 15:02 IMPRESSION: 1. Bilateral severe hydronephrosis with cortical thinning similar on the right and mildly increased on the left compared with the previous examination with similar perinephric stranding. 2. Bilateral double-J ureteral stents. 3. Hysterectomy. 4. Cholecystectomy. Electronically Signed: Lloyd Estrada MD at 15:22 EST , Treatment and Re-Evaluation :: White blood cell count is elevated at 15.5. It is noted that the patient runs achronically elevated white count in the teens. Hemoglobin is 11.6. Differential is unremarkable. Chemistry studies reveal normal potassium of 4.3. BUN is 44 and creatinine is up to 4.72. It appears her baseline creatinine is around 2-2.3. Yesterday her creatinine was 4.41. Urinalysis today reveals greater than 100 white cells with 2+ bacteria. Urine culture obtained yesterdayis growing gram-negative rods lactose senior infrastructure engineer's. Patient is given a dose of IV Rocephin. CT of the flank reveals bilateral severe hydronephrosis with cortical thinning similar on the right but mildly increased on the left comparedto prior. Bilateral double-J stents are in place. With patient's worsening renal function I did speak with Dr. Strickland, her urologist. He is currently out of town and unable to assist. He recommends from the patient for urologic care. Patient has been accepted by hospitalist [facility]. We will arrange transport once bed assignment obtained. Discharge Plan Triage Chief Complaint: Abn Labs ED Provider: Carlene Bower Dx/Rx/DC Orders Clinical Impression: LULY (acute kidney injury), Bilateral hydronephrosis Prescriptions: No Action albuterol sulfate [Ventolin HFA] 90 mcg/actuation HFA aerosol inhaler 2 puff INHALATION Q6H PRN (Reason: Sob &/Or Wheezing) pantoprazole 40 mg tablet,delayed release (DR/EC) 40 mg PO DAILY Hold Instructions: Order Completed metoprolol tartrate 50 MG tablet 50 mg PO BID potassium chloride 20 MEQ tablet,ER particles/crystals 20 meq PO DAILY ipratropium bromide 42 mcg (0.06 %) spray,non-aerosol 2 spray INTRANASAL DAILY cephalexin 500 mg capsule 500 mg PO Q6H Qty: 40 0RF amlodipine 2.5 mg tablet 2.5 mg PO DAILY Qty: 90 3RF Primary Care Provider: Gerardo García Chi Referrals: Gerardo García Chi, MD [Primary Care Provider] - Disposition Disposition: Acute Care Hospital Discharge Location: [facility] What to do if you have Problems For any increased pain, shortness of breath, bleeding, nausea or vomiting, chestpain, or any unexpected problems, contact your Primary Care Provider. Call [facility] ([phone]) or report to the closest Emergency Room. Call 911 if necessary. 10/09/23 6579 <Electronically signed by Carlene Bower MD> Cosigner Signature (if applicable): CC: Dr. Gerardo García MD ~ Signed [facility] Work Phone: 1(385) 744-470311-04-2023 Discharge summary Author Rafa Lofton [facility] September 22, 2023 10:55am Note Date/Time September 22, 2023 1 0:49am [facility] Medical Records Department [facility] [place] [address] Discharge Summary 09/22/23 1047 MR#: [id number] Acct: [id number] Name: TODD DELONG Rep #:[id number] : 1950 73 From: Rafa Lofton DO PCP: Dr. Gerardo García MD Status:ADM I N Location: [place] [address] Providers Date of Admission: 09/19/23 Primary Care Physician: Dr. Gerardo García MD Consultations 09/19/23 14:38 Consult: Infectious Disease Routine Consulting Provider: Ky Goddard Reason for Consult: MDR UTI with Pseudomonas EMERGENT Consult: No Notified: Yes Date Notified: 09/19/23 Time Notified: 13:34 Method of Notification: via texting 09/20/23 09:21 Consult: Urology Routine Consulting Provider: Joshua Strickland Reason for Consult: uti, hydronephrosis EMERGENT Consult: No MD Notified: Yes Date Notified: 09/20/23 Time Notified: 11:00 Method of Notification: spoke on phone Reason For Visit: UTI Diagnosis Discharge Diagnosis (1) Acute kidney injury superimposed on chronic kidney disease: Status: Chronic Code(s): N17.9 - Acute kidney failure, unspecified; N18.9 - Chronic kidney disease, unspecified Plan: Improving. Baseline range from 1.6 to 2. Monitor (2) Acute UTI: Status: Acute Code(s): N39.0 - Urinary tract infection, site not specified Plan: Complicated. 2/2 Klebsiella pneumoniae. Per ID, can be treated for [address] showed residual left hydronephrosis and moderate right hydronephrosis. Bilateral stents in place. Stable thickening of urinary bladder wall. following, Cephalexin for 10 days. Plan Chronic conditions: * Benign essential hypertension BP meds held due to dehydration on admission. Will resume amlodipine * CKD IIIb: as above. DVT prophylaxis: Lovenox, renally dosed Medications at Discharge Home Medications albuterol sulfate 90 mcg/actuation aerosol inhaler (Ventolin HFA) 2 puff inhalation Q6H PRN Sob &/Or Wheezing 07/25/18 metoprolol tartrate 50 mg tablet 50 mg PO BID blood pressure 01/27/19 potassium chloride 20 mEq tablet,extended release(part/cryst) 20 meq PO DAILY supplement 09/01/20 amlodipine 2.5 mg tablet 2.5 mg PO DAILY BP #90 tabs 08/12/21 ipratropium bromide 42 mcg (0.06 %) nasal spray 2 spray intranasal DAILY allergie 11/23/21 pantoprazole 40 mg tablet,delayed release 40 mg PO DAILY GERD 03/27/23 cephalexin 500 mg capsule 500 mg PO Q6H #40 caps 09/22/23 Hospital Course Operations None Procedures None Summary of Care Provided Minutes Spent on Discharge: 32 Weight / BMI Weight Weight: 80.1 kg Body Mass Index (BMI) 26.7 ABG / Lab / Microbiology Data 09/22/23 05:15 09/22/23 05:15 Laboratory: Laboratory Results - last 24 hr 09/21/23 16:13: WBC 11.9 H, RBC 3.83 L, Hgb 12.0, Hct 37.7, MCV 98.4, MCH 31.3, MCHC 31.8 L, RDW Std Deviation 52.6 H, RDW Coeff of Dewey 14.6, Plt Count 381, MPV10.1, Immature Gran % (Auto) 0.800, Neut % (Auto) 51.1, Lymph % (Auto) 39.6, Brooks % (Auto) 6.1, Eos % (Auto) 1.9, Baso % (Auto) 0.5, Absolute Neuts (auto) 6.1, Absolute Lymphs (auto) 4.72 H, Nucleated RBC % 0, Sodium 142, Potassium 3.2L, Chloride 110 H, Carbon Dioxide 23.0, Anion Gap 9, BUN 19 H, Creatinine 2.17 H, Estim Creat Clear Calc 23.99, Est GFR (MDRD) Af Amer 29 L, Est GFR (MDRD) Non-Af 24 L, BUN/Creatinine Ratio 8.8 L, Glucose 85, Calcium 8.0 L 09/22/23 05:15: WBC 12.6 H, RBC 3.85 L, Hgb 12.1, Hct 37.7, MCV 97.9, MCH 31.4, MCHC 32.1, RDW Std Deviation 52.6 H, RDW Coeff of Dewey 14.6, Plt Count 364, MPV 10.6, Immature Gran % (Auto) 0.700, Neut % (Auto) 48.9, Lymph % (Auto) 40.4, Brooks % (Auto) 7.5, Eos % (Auto) 2.0, Baso % (Auto) 0.5, Absolute Neuts (auto) 6.2, Absolute Lymphs (auto) 5.10 H, Nucleated RBC % 0, Differential Comment SCANNED, Sodium 142, Potassium 3.3 L, Chloride 110 H, Carbon Dioxide 23.0, AnionGap 9, BUN 17, Creatinine 2.05 H, Estim Creat Clear Calc 25.39, Est GFR (MDRD) Af Amer 31 L, Est GFR (MDRD) Non-Af 25 L, BUN/Creatinine Ratio 8.3 L, Glucose 88, Calcium 8.1 L Microbiology: Microbiology 09/19/23 11:30 Urine, Clean Catch Urine Culture - Final Klebsiella pneumoniae sp pneum 09/19/23 10:24 Stool C. difficile DNA Amplification - Final Radiography Diagnostic Testing: Radiology Impression Abdomen/Pelvis CT 09/21/23 10:58 IMPRESSION: Stable appearance of the bilateral double-J stent catheters with residual left hydronephrosis and moderate degree of right hydronephrosis and hydroureter. Right renal cyst. Stable thickening of the urinary bladder wall. Electronically Signed: Ike Colón MD at 12:52 EDT , D/C Instructions Discharge Diet: No restrictions Meaningful Use Info Meaningful Use Diagnoses (Choose all that apply): None applicable Discharge Plan Admission Admit Date/Time: 09/19/23 13:24 Primary Reason for Your Visit: UTI Attending Provider: Rafa Lofton Primary Care Provider: Gerardo García Chi Consulting Providers: Ky Goddard; Joshua Strickland; Andres Maurer; Alivia Mcrae Instructions Additional Instructions / Restrictions: You had a urinary tract infection again. The organism is different than last time that is why you do not need IV antibiotics this time. Please take the antibiotics to completion. Please follow-up with Dr. Strickland for follow-up for your stents. Discharge Orders/Prescriptions Prescriptions: New cephalexin 500 mg capsule 500 mg PO Q6H Qty: 40 0RF Continued albuterol sulfate [Ventolin HFA] 90 mcg/actuation HFA aerosol inhaler 2 puff INHALATION Q6H PRN (Reason: Sob &/Or Wheezing) pantoprazole 40 mg tablet,delayed release (DR/EC) 40 mg PO DAILY Hold Instructions: Order Completed metoprolol tartrate 50 MG tablet 50 mg PO BID potassium chloride 20 MEQ tablet,ER particles/crystals 20 meq PO DAILY ipratropium bromide 42 mcg (0.06 %) spray,non-aerosol 2 spray INTRANASAL DAILY amlodipine 2.5 mg tablet 2.5 mg PO DAILY Qty: 90 3RF Referrals / Follow Up: Joshua Strickland MD [Med Staff - Active Staff] - Within 2 Weeks Gerardo García Chi, MD [Primary Care Provider] - Within 2 Weeks Disposition Disposition (needs filled in before D/C Order can be placed): Home, Self Care Charges/Coding Visit Charges Inpatient E&M: 55623 Disch Hosp >30min 09/22/23 1055 <Electronically signed by Rafa Lofton DO> Cosigner Signature (if applicable): CC: Dr. Rafa Lofton DO; Dr. Gerardo García MD~ Signed [facility] Work Phone: [phone]) 431-362411-04-2023 Progress note Author [facility] September 22, 2023 10:47am Note Date/Time September 22, 2023 7 :37am [facility] Medical Records Department [address] [place] [address] Progress Note - Hospitalist 09/22/23 0732 MR#: [id number] Acct: [id number] Name: JAVIERTODD ANN Rep #:[id number] : 1950 73 From: Rafa Lofton DO PCP: Dr. Gerardo García MD Status:ADM I N Location: [place] [address]1 Reason for Visit Reason for Visit: Diagnoses Elevated white blood cell count, unspecified (09/19/23) Dehydration (09/19/23) Acute kidney failure, unspecified (09/19/23) Chronic kidney disease, unspecified (09/19/23) Urinary tract infection, site not specified (09/19/23) Pyuria (09/19/23) Subjective Subjective Feels well. Objective Data Objective Data Vital Signs: Vital Signs Temp Pulse Resp BP Pulse Ox O2 Del Method 36.2 C L 92 16 132/69 H 97 Room Air 09/22/23 05:34 09/22/23 05:34 09/22/23 05:34 09/22/23 05:34 09/22/23 05:34 09/22/23 07:05 Oxygen Delivery Method Room Air Weight: 80.1 kg Body Mass Index (BMI) 26.7 Intake & Output: Intake and Output for Last 24 Hours 09/20/23 09/21/23 09/22/23 23:59 23:59 23:59 Intake Total 1686.33 / 2186.33 1340 / 1340 120 / 120 Output Total 220 / 620 400 / 400 500 / 500 Balance 1466.33 / 1566.33 940 / 940 -380 / -380 Lab / Micro Data 09/22/23 05:15 09/22/23 05:15 Labs: Laboratory Results - last 24 hr 09/21/23 16:13: WBC 11.9 H, RBC 3.83 L, Hgb 12.0, Hct 37.7, MCV 98.4, MCH 31.3, MCHC 31.8 L, RDW Std Deviation 52.6 H, RDW Coeff of Dewey 14.6, Plt Count 381, MPV10.1, Immature Gran % (Auto) 0.800, Neut % (Auto) 51.1, Lymph % (Auto) 39.6, Brooks % (Auto) 6.1, Eos % (Auto) 1.9, Baso % (Auto) 0.5, Absolute Neuts (auto) 6.1, Absolute Lymphs (auto) 4.72 H, Nucleated RBC % 0, Sodium 142, Potassium 3.2L, Chloride 110 H, Carbon Dioxide 23.0, Anion Gap 9, BUN 19 H, Creatinine 2.17 H, Estim Creat Clear Calc 23.99, Est GFR (MDRD) Af Amer 29 L, Est GFR (MDRD) Non-Af 24 L, BUN/Creatinine Ratio 8.8 L, Glucose 85, Calcium 8.0 L 09/22/23 05:15: WBC 12.6 H, RBC 3.85 L, Hgb 12.1, Hct 37.7, MCV 97.9, MCH 31.4, MCHC 32.1, RDW Std Deviation 52.6 H, RDW Coeff of Dewey 14.6, Plt Count 364, MPV 10.6, Immature Gran % (Auto) 0.700, Neut % (Auto) 48.9, Lymph % (Auto) 40.4, Brooks % (Auto) 7.5, Eos % (Auto) 2.0, Baso % (Auto) 0.5, Absolute Neuts (auto) 6.2, Absolute Lymphs (auto) 5.10 H, Nucleated RBC % 0, Sodium 142, Potassium 3.3L, Chloride 110 H, Carbon Dioxide 23.0, Anion Gap 9, BUN 17, Creatinine 2.05 H, Estim Creat Clear Calc 25.39, Est GFR (MDRD) Af Amer 31 L, Est GFR (MDRD) Non-Af25 L, BUN/Creatinine Ratio 8.3 L, Glucose 88, Calcium 8.1 L Micro: Microbiology 09/19/23 11:30 Urine, Clean Catch Urine Culture - Final Klebsiella pneumoniae sp pneum 09/19/23 10:24 Stool C. difficile DNA Amplification - Final Radiography Diagnostic Testing: Radiology Impression Abdomen/Pelvis CT 09/21/23 10:58 IMPRESSION: Stable appearance of the bilateral double-J stent catheters with residual left hydronephrosis and moderate degree of right hydronephrosis and hydroureter. Right renal cyst. Stable thickening of the urinary bladder wall. Electronically Signed: Ike Colón MD at 12:52 EDT , Physical Exam Const alert and no apparent distress HEENT head/scalp atraumatic and moist oral mucous membranes Resp normal respiratory effort, no retractions and no use of accessory muscles Assessment & Plan Assessment/Plan (1) Acute kidney injury superimposed on chronic kidney disease: PLAN: Improving. Baseline range from 1.6 to 2. Monitor (2) Acute UTI: PLAN: Complicated. 2/2 Klebsiella pneumoniae. Per ID, can be treated for [address] showed residual left hydronephrosis and moderate right hydronephrosis. Bilateral stents in place. Stable thickening of urinary bladder wall. following, Cephalexin for 10 days. PLAN: Plan Chronic conditions: * Benign essential hypertension BP meds held due to dehydration on admission. Will resume amlodipine * CKD IIIb: as above. DVT prophylaxis: Lovenox, renally dosed 09/22/23 1047 <Electronically signed by Rafa Lofton DO> Cosigner Signature (if applicable): CC: ~ Signed [facility] Work Phone: [phone]) [phone] Progress note Author Joshua Strickland [facility] September 22, 2023 9:04am Note Date/Time September 22, 2023 9 :04am [facility] Medical Records Department [address] [place] [address] Progress Note - Urology 09/22/23903 MR#: [id number] Acct: [id number] Name: TODD DELONG Rep #:[id number] : 1950 73 From: Joshua Strickland MD PCP: Dr. Gerardo García MD Status:ADM I N Location: [address] Subjective Subjective cr improvingto 2.05 Ct scan stent in proper place, some residual hydro but chronic. will follow Objective Data Objective Data Vital Signs: Vital Signs Temp Pulse Resp BP Pulse Ox O2 Del Method 98.6 F 97 16 140/71 H 95 Room Air 09/22/23 07:44 09/22/23 07:44 09/22/23 07:44 09/22/23 07:44 09/22/23 07:44 09/22/23 07:44 Oxygen Delivery Method Room Air Weight: 80.1 kg Body Mass Index (BMI) 26.7 Intake & Output: Intake and Output for Last 24 Hours 09/20/23 09/21/23 09/22/23 23:59 23:59 23:59 Intake Total 1686.33 / 2186.33 1340 / 1340 120 / 120 Output Total 220 / 620 400 / 400 500 / 500 Balance 1466.33 / 1566.33 940 / 940 -380 / -380 Lab / Micro Data 09/22/23 05:15 09/22/23 05:15 Labs: Laboratory Results - last 24 hr 09/21/23 16:13: WBC 11.9 H, RBC 3.83 L, Hgb 12.0, Hct 37.7, MCV 98.4, MCH 31.3, MCHC 31.8 L, RDW Std Deviation 52.6 H, RDW Coeff of Dewey 14.6, Plt Count 381, MPV10.1, Immature Gran % (Auto) 0.800, Neut % (Auto) 51.1, Lymph % (Auto) 39.6, Brooks % (Auto) 6.1, Eos % (Auto) 1.9, Baso % (Auto) 0.5, Absolute Neuts (auto) 6.1, Absolute Lymphs (auto) 4.72 H, Nucleated RBC % 0, Sodium 142, Potassium 3.2L, Chloride 110 H, Carbon Dioxide 23.0, Anion Gap 9, BUN 19 H, Creatinine 2.17 H, Estim Creat Clear Calc 23.99, Est GFR (MDRD) Af Amer 29 L, Est GFR (MDRD) Non-Af 24 L, BUN/Creatinine Ratio 8.8 L, Glucose 85, Calcium 8.0 L 09/22/23 05:15: WBC 12.6 H, RBC 3.85 L, Hgb 12.1, Hct 37.7, MCV 97.9, MCH 31.4, MCHC 32.1, RDW Std Deviation 52.6 H, RDW Coeff of Dewey 14.6, Plt Count 364, MPV 10.6, Immature Gran % (Auto) 0.700, Neut % (Auto) 48.9, Lymph % (Auto) 40.4, Brooks % (Auto) 7.5, Eos % (Auto) 2.0, Baso % (Auto) 0.5, Absolute Neuts (auto) 6.2, Absolute Lymphs (auto) 5.10 H, Nucleated RBC % 0, Sodium 142, Potassium 3.3L, Chloride 110 H, Carbon Dioxide 23.0, Anion Gap 9, BUN 17, Creatinine 2.05 H, Estim Creat Clear Calc 25.39, Est GFR (MDRD) Af Amer 31 L, Est GFR (MDRD) Non-Af25 L, BUN/Creatinine Ratio 8.3 L, Glucose 88, Calcium 8.1 L Micro: Microbiology 09/19/23 11:30 Urine, Clean Catch Urine Culture - Final Klebsiella pneumoniae sp pneum 09/19/23 10:24 Stool C. difficile DNA Amplification - Final Radiography Diagnostic Testing: Radiology Impression Abdomen/Pelvis CT 09/21/23 10:58 IMPRESSION: Stable appearance of the bilateral double-J stent catheters with residual left hydronephrosis and moderate degree of right hydronephrosis and hydroureter. Right renal cyst. Stable thickening of the urinary bladder wall. Electronically Signed: Ike Colón MD at 12:52 EDT , 09/22/23 0904 <Electronically signed by Joshua Strickland MD> Cosigner Signature (if applicable): CC: ~ Signed [facility] Work Phone: [phone] Progress note Author Alivia [facility] September 21, 2023 5:23pm Note Date/Time September 21, 2023 3 :24pm [facility] Medical Records Department [address] [place] [address] Progress Note 09/21/23 1521 MR#: [id number] Acct: [id number] Name: TODD DELONG Rep #:[id number] : 1950 73 From: Alivia Mcrae MD PCP: Dr. Gerardo García MD Status:ADM I N Location: [place] [address] Subjective Subjective Patient seen and examined. She feels well today. She has no complaints. She denies any fever or chills, palpitations, dizziness, nausea or vomiting or any other symptoms. Review of systems otherwise negative. Her fever and diarrhea have resolved. Objective Data Objective Data Vital Signs: Vital Signs Temp Pulse Resp BP Pulse Ox O2 Del Method 97.9 F 93 16 141/72 H 96 Room Air 09/21/23 07:56 09/21/23 08:06 09/21/23 07:56 09/21/23 08:06 09/21/23 07:56 09/21/23 07:56 Oxygen Delivery Method Room Air Weight: 176 lb 12.972 oz Body Mass Index (BMI) 26.8 Intake & Output: Intake and Output for Last 24 Hours 09/19/23 09/20/23 09/21/23 23:59 23:59 23:59 Intake Total 2043.67 / 2243.67 1686.33 / 2186.33 1100 / 1100 Output Total 220 / 620 400 / 400 Balance 2043.67 / 2123.67 1466.33 / 1566.33 700 / 700 Lab / Micro Data 09/20/23 06:15 09/20/23 06:15 Micro: Microbiology 09/19/23 11:30 Urine, Clean Catch Urine Culture - Final Klebsiella pneumoniae sp pneum 09/19/23 10:24 Stool C. difficile DNA Amplification - Final Radiography Diagnostic Testing: Radiology Impression Abdomen/Pelvis CT 09/21/23 10:58 IMPRESSION: Stable appearance of the bilateral double-J stent catheters with residual left hydronephrosis and moderate degree of right hydronephrosis and hydroureter. Right renal cyst. Stable thickening of the urinary bladder wall. Electronically Signed: Ike Colón MD at 12:52 EDT , Physical Exam Const alert, oriented x3 and no apparent distress General Appearance: cooperative HEENT normocephalic, head/scalp atraumatic, moist oral mucous membranes and oropharynxnormal Eyes PERRL and EOMs intact bilaterally Neck no lymphadenopathy and supple Lymph Lymphatic: no lymphadenopathy noted and no lymphedema noted Resp normal respiratory effort, normal air movement and clear to auscultation bilaterally Cardio regular rate, regular rhythm, S1 normal heart sound, S2 normal heart sound and no murmurs GI normal to inspection, nondistended, normoactive bowel sounds, soft to palpation,non-tender and non-distended Extremity normal capillary refill, no clubbing, cyanosis or edema and no calf tenderness General Extremity: no tenderness to palpation of joints or extremities Skin General Skin Exam: no breakdown Neuro CN's II-XII intact bilaterally, no focal motor deficits, no sensory deficits noted and deep tendon reflexes 2+ bilaterally Motor Exam: strength 5/5 throughout Psych thought process normal and cooperative Appearance: appropriate Assessment & Plan Assessment/Plan (1) Acute kidney injury superimposed on chronic kidney disease: (2) Leukocytosis: (3) Pyuria: PLAN: Plan #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 * ID and urology on board. Urine cultures growing Klebsiella * Had bilateral stents placed by urology. Urology consulted to see if stents can be removed. * Per ID if patient continues to improve and no issues with stents, to be switched to p.o. Keflex, dose adjusted for GFR for 10 more days. * Await urology recommendations. #LULY on CKD stage IIIb: * Creatinine is 2.46. Was 2.88 yesterday. His baseline seems to be around 2. Continue gentle hydration and monitor. #Diarrhea: C. difficile negative. Improving. Will monitor. #Benign essential hypertension BP meds held due to dehydration on admission. Will resume amlodipine DVT prophylaxis: Lovenox, renally dosed Charges/Coding Visit Charges Inpatient E&M: 12146 Rust Hosp L2 09/21/23 1723 <Electronically signed by Alivia Mcrae MD> Alivia Mcrae MD Cosigner Signature (if applicable): CC: ~ Signed [facility] Work Phone: [phone] Progress note Author Ky Goddard [facility] September 21, 2023 12:24pm Note Date/Time September 21, 2023 1 2:25pm [facility] Medical Records Department [address] [place] [address] Progress Note - Infect Disease 09/21/23 1223 MR#: [id number] Acct: [id number] Name: TODD DELONG Rep #:[id number] : 1950 73 From: Ky tejeda MD PCP: Dr. Gerardo García MD Status:ADM I N Location: [place] [address] Physical Exam Narrative Feeling better, no fever, no abd pain Const alert and no apparent distress HEENT normocephalic Resp normal air movement and clear to auscultation bilaterally Cardio regular rate and regular rhythm GI soft to palpation, non-tender and non-distended Skin no rashes or lesions noted ID ID: Route of nutrition/ use of supplements: [] Nutritional Intake: [] IV Site: [] Roberts Catheter: [] Assessment & Plan Assessment/Plan (1) Complicated urinary tract infection: PLAN: Ucx with klebs. Bcx neg so far. On empiric meropenem. Seen by urology here. Had bilat ureteral stents placed 07/2023. Ucx grew PsA 08/02/23. Will order CT to eval stents. Still with LULY. Plan at discharge if she continues to improve and no issues with stents would be po keflex, dose adjusted for GFR, for 10 more days. Will follow 09/21/23 1224 <Electronically signed by Ky Goddard MD> Cosigner Signature (if applicable): CC: ~ Signed [facility] Work Phone: 1(366) 802-872311-03-2023 Consult note Author Joshua Strickland [facility] September 21, 2023 8:24am Note Date/Time September 21, 2023 8 :24am [facility] Medical Records Department [address] [place] [address] Consultation - Urology 09/21/23 0819 MR#: [id number] Acct: [id number] Name: TODD DELONG Rep #:[id number] : 1950 73 From: Joshua Strickland MD PCP: Dr. Gerardo García MD Status:ADM I N Location: [place] [address] HPI Consult Data Date of Consult: 09/21/23 HPI Narrative Reason for Consultation: recurrent UTIs, stents HPI Narrative: TODD DELONG, is a 73 F who presents to the hospital with a UtI, chronically infected also has chronic stents stents were just changed about 6 weeks ago, had an u/s done, may need to repeat CT scan to check position of stent. He Creatinine is up and not baseline, monitor renal function and recently cr improving. will Follow. [facility] Medical History Acute diarrhea LULY (acute kidney injury) Asthma Dunbar's palsy Bilateral hydronephrosis Bladder disease Blood disorder Bruising Cancer Cardiology follow-up encounter Cervical cancer Chronic renal failure, stage 4 (severe) Dialysis patient Easy bruising Essential hypertension Former smoker Gout High anion gap metabolic acidosis History of biliary stent insertion History of cervical cancer History of Clostridium difficile infection History of COVID-19 History of irregular heartbeat History of renal disease Hx of cataract Hx of echocardiogram Hx of vertigo Hyperlipidemia Hypertension Hypokalemia Hyponatremia Kidney disease Leg cramps Lymphocytosis Mild intermittent asthma MRSA infection Near syncope Problem with dialysis access Sepsis Status post placement of implantable loop recorder (~03/29/20) Thyroid disease Urinary incontinence UTI (urinary tract infection) Wears dentures Home Medications albuterol sulfate 90 mcg/actuation aerosol inhaler (Ventolin HFA) 2 puff inhalation Q6H PRN Sob &/Or Wheezing 07/25/18 [History Last Taken 08/01/23] metoprolol tartrate 50 mg tablet 50 mg PO BID blood pressure 01/27/19 [History Last Taken 08/01/23] potassium chloride 20 mEq tablet,extended release(part/cryst) 20 meq PO DAILY supplement 09/01/20 [History Last Taken 08/01/23] amlodipine 2.5 mg tablet 2.5 mg PO DAILY BP #90 tabs 08/12/21 [Rx Last Taken 08/01/23] ipratropium bromide 42 mcg (0.06 %) nasal spray 2 spray intranasal DAILY allergie 11/23/21 [History Last Taken 08/01/23] pantoprazole 40 mg tablet,delayed release 40 mg PO DAILY GERD 03/27/23 [History Last Taken 08/01/23] Allergy/AdvReac Type Severity Reaction Status Date / Time pravastatin Allergy Severe Chest Verified 09/19/23 09:25 tightness procaine [From Novocain] Allergy Severe NEEDS Verified 09/19/23 09:25 FOLLOW-UP sulfamethoxazole Allergy Severe Shortness Verified 09/19/23 09:25 [From Bactrim] of breath trimethoprim [From Bactrim] Allergy Severe Shortness Verified 09/19/23 09:25 of breath Qixatya-RXK-ClP Reductase Allergy Anaphylaxis Verified 09/19/23 09:25 Inhibitor clindamycin AdvReac Severe unsure of Verified 09/19/23 09:25 reaction methylprednisolone AdvReac Severe Pain in Verified 09/19/23 09:25 joints levofloxacin [From Levaquin] AdvReac UNSURE OF Verified 09/19/23 09:25 REACTION Family History Father , 32 yrs old CAD (coronary artery disease) History of coronary artery bypass surgery Mother Cancer Lung CA, Hx tobacco use. Surgical History History of arteriovenostomy for renal dialysis (~09/2021) History of cardiac catheterization (~01/08/18) History of cardiac catheterization History of cholecystectomy History of excision of mass History of hysterectomy History of loop recorder history of radium implant Hx of cystoscopy S/P arteriovenous (AV) fistula creation Social History household members: spouse and children number of children: 6 current occupational status: retired history of recent travel: No Smoking Status: Former smoker second hand exposure: No alcohol intake: never substance use type: does not use what type of physical activity do you participate in: walking saurabh/mu-ism: Non-Zoroastrianism/Independent seatbelt use: always do you feel safe at home: Yes additional social history: - Fernando Lab / Micro Data 09/20/23 06:15 09/20/23 06:15 Labs: Laboratory Results - last 24 hr 09/20/23 06:15: Differential Comment COMMENT, Sodium 136, Potassium 4.1, Chloride 110 H, Carbon Dioxide 20.0 L, Anion Gap 6, BUN 26 H, Creatinine 2.46 H,Estim Creat Clear Calc 21.16, Est GFR (MDRD) Af Amer 25 L, Est GFR (MDRD) Non-Af21 L, BUN/Creatinine Ratio 10.6, Glucose 83, Calcium 7.6 L, Phosphorus 3.9 Micro: Microbiology 09/19/23 11:30 Urine, Clean Catch Urine Culture - Final Klebsiella pneumoniae sp pneum 09/21/23 0824 <Electronically signed by Joshua Strickland MD> Cosigner Signature (if applicable): CC: Dr. Andres Maurer DO; Dr. Joshua Strickland MD; Dr. Ky Goddard MD; Dr. Gerardo García MD~ Signed [facility] Work Phone: 1(502) 258-613811-02-2023 Progress note Author Andres Fraser [facility] September 20, 2023 1:13pm Note Date/Time September 20, 2023 7 :13am [facility] Medical Records Department [address] [place] [address] Progress Note - Hospitalist 09/20/23711 MR#: [id number] Acct: [id number] Name: TODD DELONG #:[id number] : 1950 73 From: Andres Holt DO PCP: Dr. Gerardo García MD Status:ADM I N Location: MO3 [id number] Reason for Visit Reason for Visit: Diagnoses Dehydration (09/19/23) Acute kidney failure, unspecified (09/19/23) Chronic kidney disease, unspecified (09/19/23) Urinary tract infection, site not specified (09/19/23) Subjective Subjective Patient seen this AM. She is feeling much better today with good urinary outputthough she is incontinent. She has adequate fluid intake and a good appetite. She further explained that her PICC line used to give 14 days of IV antibiotics for her multidrug-resistant UTI also became infected causing the PICC line to have to be removed. We discussed that she will likely need another PICC line sothat she can receive her IV antibiotics along with an ID consultation today for follow-up care. Objective Data Objective Data Vital Signs: Vital Signs Temp Pulse Resp BP Pulse Ox O2 Del Method 98.2 F 99 16 133/75 H 97 Room Air 09/20/23 03:00 09/20/23 03:00 09/20/23 03:00 09/20/23 03:00 09/20/23 03:00 09/20/23 03:00 Oxygen Delivery Method Room Air Weight: 176 lb 12.972 oz Body Mass Index (BMI) 26.9 Intake & Output: Intake and Output for Last 24 Hours 09/18/23 09/19/23 09/20/23 23:59 23:59 23:59 Intake Total 2043.67 / 2243.67 420 / 420 Output Total 220 / 220 Balance 2043.67 / 2123.67 200 / 200 Lab / Micro Data Attestation: I reviewed the patient's lab results. 09/20/23 06:15 09/20/23 06:15 Labs: Laboratory Results - last 24 hr 09/19/23 10:15: WBC 20.8 H, RBC 4.54, Hgb 14.3, Hct 43.7, MCV 96.3, MCH 31.5, MCHC 32.7, RDW Std Deviation 51.6 H, RDW Coeff of Dewey 14.6, Plt Count 442, MPV 10.2, Immature Gran % (Auto) 0.700, Neut % (Auto) 64.2, Lymph % (Auto) 28.9, Brooks % (Auto) 5.5, Eos % (Auto) 0.3, Baso % (Auto) 0.4, Absolute Neuts (auto) 13.4 H, Absolute Lymphs (auto) 6.02 H, Nucleated RBC % 0, Differential Comment SCANNED, Sodium 134 L, Potassium 4.1, Chloride 104, Carbon Dioxide 20.0 L, AnionGap 10, BUN 23 H, Creatinine 2.88 H, Estim Creat Clear Calc 18.07, Est GFR (MDRD) Af Amer 21 L, Est GFR (MDRD) Non-Af 17 L, BUN/Creatinine Ratio 8.0 L, Glucose 98, Calcium 8.4 L 09/19/23 11:30: Urine Color Yellow, Urine Clarity Cloudy, Urine pH 6.0, Ur Specific Parks 1.015, Urine Protein 100 H, Urine Glucose (UA) Normal, Urine Ketones Negative, Urine Occult Blood 150 H, Urine Nitrite Positive H, Urine Bilirubin Negative, Urine Urobilinogen Normal, Ur Leukocyte Esterase 500 H, Urine RBC 0 SEEN, Urine WBC >100 SEEN, Ur Squamous Epith Cells 0 SEEN, Urine Bacteria 0 SEEN, Urine Mucus 0 SEEN Micro: Microbiology 09/19/23 10:24 Stool C. difficile DNA Amplification - Final Radiography Diagnostic Testing: Radiology Impression Renal Ultrasound 09/19/23 14:38 IMPRESSION: Bilateral hydronephrosis. Electronically Signed: Javan Grady MD at 22:38 EDT Reading Location ID and State: [address] [place] [address] , Service support , Physical Exam Const alert, oriented x3, no apparent distress and average body habitus General Appearance: cooperative HEENT normocephalic, head/scalp atraumatic and hearing grossly normal bilaterally Eyes PERRL, EOMs intact bilaterally, conjunctivae normal and no scleral icterus Neck no lymphadenopathy, supple, no JVD and no carotid bruits Resp normal respiratory effort, normal air movement, no retractions, no use of accessory muscles and clear to auscultation bilaterally Cardio regular rate, regular rhythm, S1 normal heart sound, S2 normal heart sound and no murmurs GI normal to inspection, nondistended, normoactive bowel sounds, soft to palpation,non-tender and non-distended Extremity normal to inspection, full ROM, normal capillary refill, no joint enlargement and no clubbing, cyanosis or edema Skin no rashes or lesions noted Skin Narrative: Skin is dry. Neuro oriented x3, CN's II-XII intact bilaterally, moves all extremities and no focal motor deficits Sensorium / Orientation: awake, alert, oriented to person, oriented to place andoriented to time Motor Exam: strength 5/5 throughout Psych affect normal Assessment & Plan Assessment/Plan (1) Acute kidney injury superimposed on chronic kidney disease: (2) Acute dehydration: (3) Acute UTI: PLAN: Plan 1. Multidrug-resistant UTI with Pseudomonas; recurrent - Continue IV Merrem to cover MDR Pseudomonas and await final culture and sensitivity data. Give Tylenol prn for fever or pain. Patient only had 1 SIRS criteria positive on admission so no lactates or further sepsis workup was undertaken in the ER as her vitals were normal. Her WBC has decreased nicely with treatment. Finally, we will consult Dr. Goddard of [place] to see this patient in consultation later today as she will likely need a PICC to complete her current course of antibiotics. 2. 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 Her creatine dropped from 2.88 mg/dLpresent on admission down to 2.46 mg/dL today with good UOP so nephrology consultation is deemed not to be necessary at this time. 3. Loose Stools with Dehydration compounding #1 & #2 - Stool PCR for Clostridium difficile A&B Toxin PCR negative this admission. Continue supportive care and monitor for improvement. 4. Recent admission here for MDR UTI from August 02, 2023 to August 07, 2023 requiring PICC line for IV antibiotics - Noted. 5. Essential Hypertension - Hold scheduled antihypertensives until volume statusis corrected. He blood pressure has been well controlled. 6. DVT prophylaxis - Lovenox 30 mg sq daily with decreased renal function. Total Time: approximately 35 minutes. Charges/Coding Multi Select Codes Visit Charges Visit Charges: 79695 Subs Hosp L2 09/20/23 1313 <Electronically signed by Andres de Evelio DO> Cosigner Signature (if applicable): CC: ~ Signed [facility] Work Phone: 1(965) 789-105011-02-2023 Consult note Author Ky Goddard [facility] September 20, 2023 10:45am Note Date/Time September 20, 2023 1 0:45am [facility] Medical Records Department [address] [place] [address] Consultation - Infectious Dx 09/20/23 1041 MR#: [id number] Acct: [id number] Name: TODD DELONG Rep #:[id number] : 1950 73 From: Ky tejeda MD PCP: Dr. Gerardo García MD Status:ADM I N Location: [place] [address] Assessment & Plan Assessment/Plan (1) Complicated urinary tract infection: PLAN: Ucx and bcx pending. On empiric meropenem. Will consult urology given hydronephrosis seen on imaging and bilat ureteral stents placed 07/2023. Ucx grew PsA 08/02/23. Will hold off on picc pending further cx data. Will follow, thank you, d/w nursing HPI Consult Data Date of Consult: 09/20/23 HPI Narrative Reason for Consultation: uti HPI Narrative: TODD DELONG, is a 73 F with CKD, recurrent uti, bilateral ureteral stents placed during admit a month ago by Dr. Strickland, presented with 1-2 days of progressive fever, epigastric abd pain and nausea. No changes in urine or dysuria. No cough or SOB. Admitted here on meropenem. Full ROS performed and neg except as noted above. [facility] Medical History Acute diarrhea LULY (acute kidney injury) Asthma Dunbar's palsy Bilateral hydronephrosis Bladder disease Blood disorder Bruising Cancer Cardiology follow-up encounter Cervical cancer Chronic renal failure, stage 4 (severe) Dialysis patient Easy bruising Essential hypertension Former smoker Gout High anion gap metabolic acidosis History of biliary stent insertion History of cervical cancer History of Clostridium difficile infection History of COVID-19 History of irregular heartbeat History of renal disease Hx of cataract Hx of echocardiogram Hx of vertigo Hyperlipidemia Hypertension Hypokalemia Hyponatremia Kidney disease Leg cramps Lymphocytosis Mild intermittent asthma MRSA infection Near syncope Problem with dialysis access Sepsis Status post placement of implantable loop recorder (~03/29/20) Thyroid disease Urinary incontinence UTI (urinary tract infection) Wears dentures Home Medications albuterol sulfate 90 mcg/actuation aerosol inhaler (Ventolin HFA) 2 puff inhalation Q6H PRN Sob &/Or Wheezing 07/25/18 [History Last Taken 08/01/23] metoprolol tartrate 50 mg tablet 50 mg PO BID blood pressure 01/27/19 [History Last Taken 08/01/23] potassium chloride 20 mEq tablet,extended release(part/cryst) 20 meq PO DAILY supplement 09/01/20 [History Last Taken 08/01/23] amlodipine 2.5 mg tablet 2.5 mg PO DAILY BP #90 tabs 08/12/21 [Rx Last Taken 08/01/23] ipratropium bromide 42 mcg (0.06 %) nasal spray 2 spray intranasal DAILY allergie 11/23/21 [History Last Taken 08/01/23] pantoprazole 40 mg tablet,delayed release 40 mg PO DAILY GERD 03/27/23 [History Last Taken 08/01/23] Allergy/AdvReac Type Severity Reaction Status Date / Time pravastatin Allergy Severe Chest Verified 09/19/23 09:25 tightness procaine [From Novocain] Allergy Severe NEEDS Verified 09/19/23 09:25 FOLLOW-UP sulfamethoxazole Allergy Severe Shortness Verified 09/19/23 09:25 [From Bactrim] of breath trimethoprim [From Bactrim] Allergy Severe Shortness Verified 09/19/23 09:25 of breath Bblbevb-YRB-GyK Reductase Allergy Anaphylaxis Verified 09/19/23 09:25 Inhibitor clindamycin AdvReac Severe unsure of Verified 09/19/23 09:25 reaction methylprednisolone AdvReac Severe Pain in Verified 09/19/23 09:25 joints levofloxacin [From Levaquin] AdvReac UNSURE OF Verified 09/19/23 09:25 REACTION Family History Father , 32 yrs old CAD (coronary artery disease) History of coronary artery bypass surgery Mother Cancer Lung CA, Hx tobacco use. Surgical History History of arteriovenostomy for renal dialysis (~09/2021) History of cardiac catheterization (~01/08/18) History of cardiac catheterization History of cholecystectomy History of excision of mass History of hysterectomy History of loop recorder history of radium implant Hx of cystoscopy S/P arteriovenous (AV) fistula creation Social History household members: spouse and children number of children: 6 current occupational status: retired history of recent travel: No Smoking Status: Former smoker second hand exposure: No alcohol intake: never substance use type: does not use what type of physical activity do you participate in: walking saurabh/mu-ism: Non-Zoroastrianism/Independent seatbelt use: always do you feel safe at home: Yes additional social history: - Fernando Physical Exam Const alert, oriented x3 and no apparent distress General Appearance: cooperative HEENT normocephalic and head/scalp atraumatic Eyes PERRL and EOMs intact bilaterally Neck supple and No nodes Resp normal air movement and clear to auscultation bilaterally Cardio regular rate and regular rhythm GI soft to palpation, non-tender and non-distended Extremity General Extremity: Negative for edema Skin no rashes or lesions noted Neuro CN's II-XII intact bilaterally Lab / Micro Data Attestation: I reviewed the patient's lab results. 09/20/23 06:15 09/20/23 06:15 Labs: Laboratory Results - last 24 hr 09/19/23 10:15: Differential Comment SCANNED, Sodium 134 L, Potassium 4.1, Chloride 104, Carbon Dioxide 20.0 L, Anion Gap 10, BUN 23 H, Creatinine 2.88 H, Estim Creat Clear Calc 18.07, Est GFR (MDRD) Af Amer 21 L, Est GFR (MDRD) Non-Af17 L, BUN/Creatinine Ratio 8.0 L, Glucose 98, Calcium 8.4 L 09/19/23 11:30: Urine Color Yellow, Urine Clarity Cloudy, Urine pH 6.0, Ur Specific Parks 1.015, Urine Protein 100 H, Urine Glucose (UA) Normal, Urine Ketones Negative, Urine Occult Blood 150 H, Urine Nitrite Positive H, Urine Bilirubin Negative, Urine Urobilinogen Normal, Ur Leukocyte Esterase 500 H, Urine RBC 0 SEEN, Urine WBC >100 SEEN, Ur Squamous Epith Cells 0 SEEN, Urine Bacteria 0 SEEN, Urine Mucus 0 SEEN 09/20/23 06:15: WBC 14.0 H, RBC 3.70 L, Hgb 11.6 L, Hct 35.7 L, MCV 96.5, MCH 31.4, MCHC 32.5, RDW Std Deviation 51.7 H, RDW Coeff of Dewey 14.6, Plt Count 298,MPV 10.7, Immature Gran % (Auto) 0.600, Neut % (Auto) 51.9, Lymph % (Auto) 39.5,Brooks % (Auto) 6.1, Eos % (Auto) 1.5, Baso % (Auto) 0.4, Absolute Neuts (auto) 7.3, Absolute Lymphs (auto) 5.55 H, Nucleated RBC % 0, Differential Comment COMMENT, Sodium 136, Potassium 4.1, Chloride 110 H, Carbon Dioxide 20.0 L, AnionGap 6, BUN 26 H, Creatinine 2.46 H, Estim Creat Clear Calc 21.16, Est GFR (MDRD)Af Amer 25 L, Est GFR (MDRD) Non-Af 21 L, BUN/Creatinine Ratio 10.6, Glucose 83,Calcium 7.6 L, Phosphorus 3.9 Micro: Microbiology 09/19/23 11:30 Urine, Clean Catch Urine Culture - Preliminary GNR lactose senior infrastructure engineer GNR lactose senior infrastructure engineer#2 09/19/23 10:24 Stool C. difficile DNA Amplification - Final Radiology Impression Renal Ultrasound 09/19/23 14:38 IMPRESSION: Bilateral hydronephrosis. Electronically Signed: Javan Grady MD at 22:38 EDT , 09/20/23 1045 <Electronically signed by Ky Goddard MD> Cosigner Signature (if applicable): CC: Dr. Ky Goddard MD; Dr. Gerardo García MD~ Signed [facility] Work Phone: 1(667) 396-641111-01-2023 History and physical note Author Andres Fraser [facility] September 19, 2023 4:17pm Note Date/Time September 19, 2023 1 :42pm [facility] Medical Records Department [address] [place] [address] H&P Exam - Hospitalist 09/19/23 1338 MR#: [id number] Acct: [id number] Name: TODD DELONG Rep #:[id number] : 1950 73 From: Andres Holt DO PCP: Dr. Gerardo García MD Status:ADM I N Location: [facility] [place] [id number] HPI - General General Date of Admission: 09/19/23 Date of Service: 09/19/23 Chief Complaint: Low-grade fever with loose stools and dehydration HPI Narrative TODD DELONG, is a 73 F with a past medical history of essential hypertension, hyperlipidemia (with history of anaphylaxis to statins), hypothyroidism, chronickidney disease stage IIIb-IV; with history of atriovenostomy for renal dialysis in September 2021, history of multidrug-resistant UTI with Pseudomonas requiring treatment with Merrem, history of bilateral hydronephrosis, history of MRSA, history of tobacco abuse, history of COVID-pneumonia (2018), history of mild intermittent asthma, history of cervical cancer, history of atrophic vaginitis and recent history of admission here approximately 5 weeks ago from August 02, 2023 to August 07, 2023 for UTI secondary to multidrug-resistant Pseudomonas complicated by hydronephrosis with ureteral stents placed by urologywhich required PICC line placement for IV antibiotics who presents to [facility] complaining of low-grade fever with loose stools and dehydration. Ms. Delong reports her symptoms began approximately 1 day prior to admission with a mild temperature increased to 99.9 degrees Fahrenheit along with, chills malaise and loose stools. She reports a previous history of sepsisthat was heralded by a mild temperature increase in a similar clinical presentation. She does admit to associated abdominal discomfort that is cramping in nature, intermittent in frequency and moderate in intensity with pain not made better or worse by anything. She denies associated cough, shortness of breath, chest discomfort, back pain, flank pain or focal neurologicdeficits. In the ER she was diagnosed with suspected multidrug-resistant Pseudomonas UTI that is recurrent; confirmed by a positive UA complicated by loose stools with a white blood cell count of 20.8 without left shift with a creatinine of 2.88 consistent with acute kidney injury in the setting of chronickidney disease stage IIIb-IV (with her last creatinine of 1.66 mg/dL and eGFR of32 - now down to 17) along with her C. difficile PCR being negative this admission. She was then admitted to the general medical floor for ongoing care for a stay is expected to be greater than 48 hours. [facility] Medical History Acute diarrhea LULY (acute kidney injury) Asthma Dunbar's palsy Bilateral hydronephrosis Bladder disease Blood disorder Bruising Cancer Cardiology follow-up encounter Cervical cancer Chronic renal failure, stage 4 (severe) Dialysis patient Easy bruising Essential hypertension Former smoker Gout High anion gap metabolic acidosis History of biliary stent insertion History of cervical cancer History of Clostridium difficile infection History of COVID-19 History of irregular heartbeat History of renal disease Hx of cataract Hx of echocardiogram Hx of vertigo Hyperlipidemia Hypertension Hypokalemia Hyponatremia Kidney disease Leg cramps Lymphocytosis Mild intermittent asthma MRSA infection Near syncope Problem with dialysis access Sepsis Status post placement of implantable loop recorder (~03/29/20) Thyroid disease Urinary incontinence UTI (urinary tract infection) Wears dentures Home Medications albuterol sulfate 90 mcg/actuation aerosol inhaler (Ventolin HFA) 2 puff inhalation Q6H PRN Sob &/Or Wheezing 07/25/18 [History Last Taken 08/01/23] metoprolol tartrate 50 mg tablet 50 mg PO BID blood pressure 01/27/19 [History Last Taken 08/01/23] potassium chloride 20 mEq tablet,extended release(part/cryst) 20 meq PO DAILY supplement 09/01/20 [History Last Taken 08/01/23] amlodipine 2.5 mg tablet 2.5 mg PO DAILY BP #90 tabs 08/12/21 [Rx Last Taken 08/01/23] ipratropium bromide 42 mcg (0.06 %) nasal spray 2 spray intranasal DAILY allergie 11/23/21 [History Last Taken 08/01/23] pantoprazole 40 mg tablet,delayed release 40 mg PO DAILY GERD 03/27/23 [History Last Taken 08/01/23] Allergy/AdvReac Type Severity Reaction Status Date / Time pravastatin Allergy Severe Chest Verified 09/19/23 09:25 tightness procaine [From Novocain] Allergy Severe NEEDS Verified 09/19/23 09:25 FOLLOW-UP sulfamethoxazole Allergy Severe Shortness Verified 09/19/23 09:25 [From Bactrim] of breath trimethoprim [From Bactrim] Allergy Severe Shortness Verified 09/19/23 09:25 of breath Iuwuqfe-URU-YnS Reductase Allergy Anaphylaxis Verified 09/19/23 09:25 Inhibitor clindamycin AdvReac Severe unsure of Verified 09/19/23 09:25 reaction methylprednisolone AdvReac Severe Pain in Verified 09/19/23 09:25 joints levofloxacin [From Levaquin] AdvReac UNSURE OF Verified 09/19/23 09:25 REACTION Family History Father , 32 yrs old CAD (coronary artery disease) History of coronary artery bypass surgery Mother Cancer Lung CA, Hx tobacco use. Surgical History History of arteriovenostomy for renal dialysis (~09/2021) History of cardiac catheterization (~01/08/18) History of cardiac catheterization History of cholecystectomy History of excision of mass History of hysterectomy History of loop recorder history of radium implant Hx of cystoscopy S/P arteriovenous (AV) fistula creation Social History household members: spouse and children number of children: 6 current occupational status: retired history of recent travel: No Smoking Status: Former smoker second hand exposure: No alcohol intake: never substance use type: does not use what type of physical activity do you participate in: walking saurabh/mu-ism: Non-Zoroastrianism/Independent seatbelt use: always do you feel safe at home: Yes additional social history: - Fernando PALOMO Narrative General: Did have low-grade fever HENT: Positive dry mucus membranes. Denies headache, denies stuffy nose, deniessore throat EYES: Denies changes in vision Resp: Denies cough, denies shortness of breath Cardiac: Denies chest pain GI: Mild intermittent abdominal discomfort with loose stools, denies vomiting : Denies changes in urination Extremity: Denies swelling Musculoskeletal: Feels somewhat generally weak and unwell Neuro: Denies any numbness/tingling Heme: Denies any bleeding or bruising Skin: Denies rashes Psychiatric: No complaints voiced Endocrine: No polyuria The rest of the 14 point ROS was negative except for positives in HPI. Vital Signs Vital Signs Vital Signs: 09/19/23 09:24 09/19/23 09:35 09/19/23 09:59 Temperature 97.3 F L Temperature Source Temporal Pulse Rate 99 Pulse Rate [Lying] 86 Pulse Rate [Sitting (for 1 minute prior to obtaining)] 89 Pulse Rate [Standing (for 1 minute prior to obtaining)] 93 Respiratory Rate 14 Respiratory Effort Normal Respiratory Pattern Normal Blood Pressure 116/79 Blood Pressure [Lying] 113/65 Blood Pressure [Sitting (for 1 minute prior to obtaining)] 101/79 Blood Pressure [Standing (for 1 minute prior to obtaining)] 101/73 Blood Pressure Mean 91 Blood Pressure Mean [Lying] 81 Blood Pressure Mean [Sitting (for 1 minute prior to obtaining)] 86 Blood Pressure Mean [Standing (for 1 minute prior to obtaining)] 82 Pulse Ox 98 Oxygen Delivery Method Room Air Weight Weight: 185 lb 9.6 oz Body Mass Index (BMI) 28.2 Physical Exam Const alert, oriented x3, no apparent distress and average body habitus General Appearance: cooperative HEENT normocephalic, head/scalp atraumatic and hearing grossly normal bilaterally HEENT Narrative: Dry mucous membranes and skin. Eyes PERRL, EOMs intact bilaterally and conjunctivae normal Neck no lymphadenopathy, supple, no JVD and no carotid bruits Resp normal respiratory effort, no retractions, no use of accessory muscles and clearto auscultation bilaterally Cardio regular rate, regular rhythm, S1 normal heart sound, S2 normal heart sound and no murmurs GI normal to inspection, nondistended, normoactive bowel sounds, soft to palpation,non-tender and non-distended Extremity normal to inspection, full ROM and no clubbing, cyanosis or edema Skin Skin Narrative: Skin is dry. Neuro oriented x3, CN's II-XII intact bilaterally, moves all extremities and no focal motor deficits Sensorium / Orientation: awake, alert, oriented to person, oriented to place andoriented to time Motor Exam: strength 5/5 throughout Psych affect normal Results Lab / Micro Data 09/19/23 10:15 09/19/23 10:15 Labs: Laboratory Results - last 24 hr 09/19/23 10:15: WBC 20.8 H, RBC 4.54, Hgb 14.3, Hct 43.7, MCV 96.3, MCH 31.5, MCHC 32.7, RDW Std Deviation 51.6 H, RDW Coeff of Dewey 14.6, Plt Count 442, MPV 10.2, Immature Gran % (Auto) 0.700, Neut % (Auto) 64.2, Lymph % (Auto) 28.9, Brooks % (Auto) 5.5, Eos % (Auto) 0.3, Baso % (Auto) 0.4, Absolute Neuts (auto) 13.4H, Absolute Lymphs (auto) 6.02 H, Nucleated RBC % 0, Differential Comment SCANNED, Sodium 134 L, Potassium 4.1, Chloride 104, Carbon Dioxide 20.0 L, AnionGap 10, BUN 23 H, Creatinine 2.88 H, Estim Creat Clear Calc 18.07, Est GFR (MDRD) Af Amer 21 L, Est GFR (MDRD) Non-Af 17 L, BUN/Creatinine Ratio 8.0 L, Glucose 98, Calcium 8.4 L 09/19/23 11:30: Urine Color Yellow, Urine Clarity Cloudy, Urine pH 6.0, Ur Specific Parks 1.015, Urine Protein 100 H, Urine Glucose (UA) Normal, Urine Ketones Negative, Urine Occult Blood 150 H, Urine Nitrite Positive H, Urine Bilirubin Negative, Urine Urobilinogen Normal, Ur Leukocyte Esterase 500 H, Urine RBC 0 SEEN, Urine WBC >100 SEEN, Ur Squamous Epith Cells 0 SEEN, Urine Bacteria 0 SEEN, Urine Mucus 0 SEEN Micro: Microbiology 09/19/23 10:24 Stool C. difficile DNA Amplification - Final Assessment & Plan Assessment/Plan (1) Acute kidney injury superimposed on chronic kidney disease: (2) Acute dehydration: (3) Acute UTI: PLAN: Plan 1. Multidrug-resistant UTI with Pseudomonas; recurrent - Continue IV Merrem to cover MDR Pseudomonas and await final culture and sensitivity data. Give Tylenol prn for fever or pain. Patient only has 1 SIRS criteria positive on admission so no lactates or further sepsis workup was undertaken in the ER as her vitals are normal. 2. LULY on CKD stage IIIb-IV with a known history of HD complicating #1 - Continue gentle volume resuscitation with strict I's & O's and recheck BMP in the AM to ensure improvement. We will obtain nephrology consult in the AM if hercreatinine has not improved. 3. Loose Stools with Dehydration compounding #1 & #2 - Stool PCR for Clostridiumdifficile A&B Toxin PCR negative this admission. Continue supportive care and monitor for improvement. 4. Recent admission here for MDR UTI from August 02, 2023 to August 07, 2023 requiring PICC line for IV antibiotics - Noted. 5. Essential Hypertension - Hold scheduled antihypertensives until volume statusis corrected. 6. DVT prophylaxis - Lovenox 30 mg sq daily. Total Time: approximately 55 minutes. 09/19/23 1617 <Electronically signed by Andres Maurer DO> Cosigner Signature (if applicable): CC: Dr. Andres Maurer DO; Dr. Gerardo García MD~ Signed [facility] Work Phone: [phone]) 487-254711-01-2023 Discharge summary Author Altaf Villa [facility] September 19, 2023 12:45pm Note Date/Time September 19, 2023 9 :58am [facility] Medical Records Department [address] [place] [id number] Emergency Department Summary 09/19/23 MR#: [id number] Acct: [id number] Name: TODD DELONG Rep #:[id number] : 1950 73 From: Altaf Villa MD PCP: Dr. Gerardo García MD Status:REG E R Location: ED HPI History of Present Illness Chief Complaint: General Illness Detail of Chief Complaint: Has not felt well since Sunday Informant: patient Onset/Context/Timing Onset: Days (Onset Sunday, September 17) Context: Sudden Onset Timing: Continuous and Waxes and wanes Quality: Chills, elevated temperature, diarrhea starting yesterday Location: Generalized and GI Current Severity: Mild Maximum Severity: Moderate Worsened by: Nothing specifically Relieved by: Nothing Associated Symptoms Associated Symptoms: Per HPI narrative Narrative Narrative: Patient is a 73-year-old woman who presents because of elevated temperature. She states when her temperature goes above 99.4 she has been septic. She had a recent admission. She states a couple of weeks ago. Review of prior records indicate patient was admitted on and discharged on for urinary tract infection caused by Pseudomonas. The Pseudomonas strain was resistant to quinolones. Patient required IV antibiotics. PICC line was placed. She also had hydronephrosis and had her ureteral stents replaced by urology. She also has chronic kidney disease stage IIIb. Patient states her temperature on Sunday was 99.4. Yesterday had hit a Tmax of 99.9. Patient also had chills yesterday. She has had 3 loose watery stools since yesterday afternoon. There was no blood or mucus noted. She does report continuous nausea. She has had no vomiting. She denies dysuria, frequency, urgency or hematuria. She states she does not always have urinary tract symptoms when she has infection. She denies headache, visual, ocular auditory symptoms. Patient does report rhinorrhea. She has history of allergies. She denies sore throat. She denies cough or shortness of breath. She denies chest discomfort. She denies abdominal pain. She denies back or flank pain. She denies neurologic symptoms. Prior similar symptoms: No Recent Illness/Hospitalization: Yes PFSH PFSH Medical History Acute diarrhea LULY (acute kidney injury) Asthma Dunbar's palsy Bilateral hydronephrosis Bladder disease Blood disorder Bruising Cancer Cardiology follow-up encounter Cervical cancer Chronic renal failure, stage 4 (severe) Easy bruising Essential hypertension Former smoker Gout High anion gap metabolic acidosis History of biliary stent insertion History of cervical cancer History of Clostridium difficile infection History of COVID-19 History of irregular heartbeat History of renal disease Hx of cataract Hx of echocardiogram Hx of vertigo Hyperlipidemia Hypertension Hypokalemia Hyponatremia Leg cramps Lymphocytosis Mild intermittent asthma MRSA infection Near syncope Problem with dialysis access Sepsis Status post placement of implantable loop recorder (~03/29/20) Thyroid disease Urinary incontinence UTI (urinary tract infection) Wears dentures Home Medications albuterol sulfate 90 mcg/actuation aerosol inhaler (Ventolin HFA) 2 puff inhalation Q6H PRN Sob &/Or Wheezing 07/25/18 [History Last Taken 08/01/23] metoprolol tartrate 50 mg tablet 50 mg PO BID blood pressure 01/27/19 [History Last Taken 08/01/23] potassium chloride 20 mEq tablet,extended release(part/cryst) 20 meq PO DAILY supplement 09/01/20 [History Last Taken 08/01/23] amlodipine 2.5 mg tablet 2.5 mg PO DAILY BP #90 tabs 08/12/21 [Rx Last Taken 08/01/23] ipratropium bromide 42 mcg (0.06 %) nasal spray 2 spray intranasal DAILY 11/23/21 [History Last Taken 08/01/23] pantoprazole 40 mg tablet,delayed release 40 mg PO DAILY 03/27/23 [History Last Taken 08/01/23] Allergy/AdvReac Type Severity Reaction Status Date / Time pravastatin Allergy Severe Chest Verified 09/19/23 09:25 tightness procaine [From Novocain] Allergy Severe NEEDS Verified 09/19/23 09:25 FOLLOW-UP sulfamethoxazole Allergy Severe Shortness Verified 09/19/23 09:25 [From Bactrim] of breath trimethoprim [From Bactrim] Allergy Severe Shortness Verified 09/19/23 09:25 of breath [id number] Reductase Allergy Anaphylaxis Verified 09/19/23 09:25 Inhibitor clindamycin AdvReac Severe unsure of Verified 09/19/23 09:25 reaction methylprednisolone AdvReac Severe Pain in Verified 09/19/23 09:25 joints levofloxacin [From Levaquin] AdvReac UNSURE OF Verified 09/19/23 09:25 REACTION Family History Father , 32 yrs old CAD (coronary artery disease) History of coronary artery bypass surgery Mother Cancer Lung CA, Hx tobacco use. Surgical History History of arteriovenostomy for renal dialysis (~09/2021) History of cardiac catheterization (~01/08/18) History of cardiac catheterization History of cholecystectomy History of excision of mass History of hysterectomy History of loop recorder history of radium implant Hx of cystoscopy S/P arteriovenous (AV) fistula creation Social History household members: spouse and children number of children: 6 current occupational status: retired history of recent travel: No Smoking Status: Former smoker second hand exposure: No alcohol intake: never substance use type: does not use what type of physical activity do you participate in: walking saurabh/mu-ism: Non-Zoroastrianism/Independent seatbelt use: always do you feel safe at home: Yes additional social history: - Fernando PALOMO ED Constitutional Constitutional ED: Reports chills, fever(s) and subjective; Denies sweats or weight loss Eyes Eyes: Denies blurry vision, change in vision or diplopia ENT ENT ED: Reports rhinorrhea; Denies ear pain or sore throat Cardiovascular Cardiovascular: Denies chest pain, orthopnea, palpitations, paroxysmal nocturnaldyspnea or racing heartbeat Respiratory/Chest Respiratory/Chest: Denies cough, dyspnea, dyspnea on exertion, orthopnea or paroxysmal nocturnal dyspnea Gastrointestinal Gastrointestinal: Reports diarrhea and nausea; Denies abdominal pain, constipation, melena or vomiting Genitourinary Genitourinary ED: Denies dysuria, hematuria or urinary frequency Musculoskeletal Musculoskeletal: Denies arthralgias, back pain, myalgias or neck pain Integumentary Reports other Details: Bruising and skin tears secondary to tape. There is alsoevidence of dry skin. ; Denies rash Neurologic Neurologic: Reports weakness; Denies headache(s) or paresthesias Psychiatric Psychiatric: Denies anxiety Hematologic/Lymphatic Hematologic/Lymphatic: Reports easy bruising; Denies easy bleeding EXAM Physical Exam Const Vital Signs: 09/19/23 09:24 09/19/23 09:35 09/19/23 09:59 Temperature 97.3 F L Temperature Source Temporal Pulse Rate 99 Pulse Rate [Lying] 86 Pulse Rate [Sitting (for 1 minute prior to obtaining)] 89 Pulse Rate [Standing (for 1 minute prior to obtaining)] 93 Respiratory Rate 14 Respiratory Effort Normal Respiratory Pattern Normal Blood Pressure 116/79 Blood Pressure [Lying] 113/65 Blood Pressure [Sitting (for 1 minute prior to obtaining)] 101/79 Blood Pressure [Standing (for 1 minute prior to obtaining)] 101/73 Blood Pressure Mean 91 Blood Pressure Mean [Lying] 81 Blood Pressure Mean [Sitting (for 1 minute prior to obtaining)] 86 Blood Pressure Mean [Standing (for 1 minute prior to obtaining)] 82 Pulse Ox 98 Oxygen Delivery Method Room Air Positive well nourished and well developed General Appearance ED: well developed and NAD; Negative for cyanotic, diaphoretic or pallor HEENT Reports dry mucous membranes HEENT Narrative: Head is atraumatic and normocephalic. Ears are normal. Nares are patent. Posterior pharynx out erythema or exudate. Uvula is midline. Mouth ED: Yes dry mucous membranes Mouth: dry mucous membranes Eyes PERRL and EOMs intact bilaterally General Eye ED: Negative for pale conjunctiva or scleral icterus Neck no lymphadenopathy, supple and no JVD Chest Wall inspection of chest normal and palpation of chest normal Resp normal respiratory effort and clear to auscultation bilaterally Cardio regular rate, regular rhythm, S1 normal heart sound, S2 normal heart sound and no murmurs GI normal to inspection, nondistended, normoactive bowel sounds, non-tender, non-distended and no masses; Negative for hepatosplenomegaly Palpation: soft Back/Spine no CVA tenderness Cervical Spine: Negative for cervical spine tenderness Thoracic Spine / Upper Back: Negative for thoracic spinal tenderness Lumbar Spine / Lower Back: Negative for lumbar spinal tenderness Extremity normal to inspection General Extremety ED: Negative for edema or tenderness General Extremity: Negative for edema Neuro oriented x3, CN's II-XII intact bilaterally and no sensory deficits noted Sensorium / Orientation: alert Motor Exam: strength 5/5 throughout Psych mental status grossly normal Skin Skin Narrative: Patient has dry skin. There are multiple bruises noted. Patient attributes this to multiple IVs blood draws and tape. General Skin Exam: Negative for elasticity normal, jaundice or pallor MDM MDM MDM Narrative Medical decision making narrative: With patient having diarrhea and was on antibiotics for 2 weeks need to evaluatefor similar center colitis. C. difficile toxin was ordered. CBC was ordered toassess white count and differential. Patient has been under the care of a oncologist because of concern for leukemia. Electrolyte panel was obtained to assess renal function since she has history of kidney disease and to evaluate for hypokalemia. She has history of hypokalemia per old records. UA was obtained to assess for urinary tract infection. Since patient only has 1 SIRS criteria blood cultures were not obtained nor was a lactate ordered. Urine culture was ordered. History & Record Review Additional record(s) reviewed:: Prior inpatient record (Documented HPI narrative), Prior outpatient record, Prior ED visit and Prior labs Lab Data Attestation: I reviewed the patient's lab results. Lab results narrative: White count is elevated at 20.8 thousand without a shift. Absolute neutrophil count is elevated. Basic metabolic panel reveals significant rise in creatininefrom baseline. Creatinine is 2.88. Macro urinalysis reveals proteinuria, occult blood, nitrites and leukoesterase. Micro is pending. Urine culture was sent. Based on most recent culture and sensitivity patient will receive meropenem. Last creatinine was 1.66 with a GFR 32 EFR now is 17. Microscopic urine revealspyuria without bacteria. Labs: Laboratory Results - last 24 hr 09/19/23 09/19/23 10:15 11:30 WBC 20.8 H RBC 4.54 Hgb 14.3 Hct 43.7 MCV 96.3 MCH 31.5 MCHC 32.7 RDW Std Deviation 51.6 H RDW Coeff of Dewey 14.6 Plt Count 442 MPV 10.2 Immature Gran % (Auto) 0.700 Neut % (Auto) 64.2 Lymph % (Auto) 28.9 Brooks % (Auto) 5.5 Eos % (Auto) 0.3 Baso % (Auto) 0.4 Absolute Neuts (auto) 13.4 H Absolute Lymphs (auto) 6.02 H Nucleated RBC % 0 Differential Comment SCANNED Sodium 134 L Potassium 4.1 Chloride 104 Carbon Dioxide 20.0 L Anion Gap 10 BUN 23 H Creatinine 2.88 H Estim Creat Clear Calc 18.07 Est GFR (MDRD) Af Amer 21 L Est GFR (MDRD) Non-Af 17 L BUN/Creatinine Ratio 8.0 L Glucose 98 Calcium 8.4 L Urine Color Yellow Urine Clarity Cloudy Urine pH 6.0 Ur Specific Parks 1.015 Urine Protein 100 H Urine Glucose (UA) Normal Urine Ketones Negative Urine Occult Blood 150 H Urine Nitrite Positive H Urine Bilirubin Negative Urine Urobilinogen Normal Ur Leukocyte Esterase 500 H Urine RBC 0 SEEN Urine WBC >100 SEEN Ur Squamous Epith Cells 0 SEEN Urine Bacteria 0 SEEN Urine Mucus 0 SEEN Management Discussion w/another healthcare provider: Hospitalist (Poke with hospitalist . Patient be a full admission.) Treatment and Re-Evaluation :: Since patient has elevated white count with pyuria and recent urinary tract infection and significant increase in creatinine with complaint of nausea and diarrhea will call hospitalist for admission versus observation. Discharge Plan Dx/Rx/DC Orders Clinical Impression: Acute dehydration, Pyuria, Diarrhea, Leukocytosis, Acute kidney injury superimposed on chronic kidney disease Disposition Disposition: Acute Care Hospital [facility] What to do if you have Problems For any increased pain, shortness of breath, bleeding, nausea or vomiting, chestpain, or any unexpected problems, contact your Primary Care Provider. Call [facility] ([phone]) or report to the closest Emergency Room. Call 911 if necessary. 09/19/23 1245 <Electronically signed by Altaf Villa MD> Cosigner Signature (if applicable): CC: Dr. Gerardo García MD ~ Signed [facility] Work Phone: 1(661) 326-436811-01-2023 Discharge summary Author Altaf Villa [facility] September 19, 2023 12:45pm Note Date/Time September 19, 2023 9 :58am [facility] Medical Records Department [address] [place] [address] Emergency Department Summary 09/19/23 MR#: [id number] Acct: [id number] Name: TODD DELONG Rep #:[id number] : 1950 73 From: Altaf Villa MD PCP: Dr. Gerardo García MD Status:REG E R Location: ED HPI History of Present Illness Chief Complaint: General Illness Detail of Chief Complaint: Has not felt well since Sunday Informant: patient Onset/Context/Timing Onset: Days (Onset Sunday, September 17) Context: Sudden Onset Timing: Continuous and Waxes and wanes Quality: Chills, elevated temperature, diarrhea starting yesterday Location: Generalized and GI Current Severity: Mild Maximum Severity: Moderate Worsened by: Nothing specifically Relieved by: Nothing Associated Symptoms Associated Symptoms: Per HPI narrative Narrative Narrative: Patient is a 73-year-old woman who presents because of elevated temperature. She states when her temperature goes above 99.4 she has been septic. She had a recent admission. She states a couple of weeks ago. Review of prior records indicate patient was admitted on and discharged on for urinary tract infection caused by Pseudomonas. The Pseudomonas strain was resistant to quinolones. Patient required IV antibiotics. PICC line was placed. She also had hydronephrosis and had her ureteral stents replaced by urology. She also has chronic kidney disease stage IIIb. Patient states her temperature on Sunday was 99.4. Yesterday had hit a Tmax of 99.9. Patient also had chills yesterday. She has had 3 loose watery stools since yesterday afternoon. There was no blood or mucus noted. She does report continuous nausea. She has had no vomiting. She denies dysuria, frequency, urgency or hematuria. She states she does not always have urinary tract symptoms when she has infection. She denies headache, visual, ocular auditory symptoms. Patient does report rhinorrhea. She has history of allergies. She denies sore throat. She denies cough or shortness of breath. She denies chest discomfort. She denies abdominal pain. She denies back or flank pain. She denies neurologic symptoms. Prior similar symptoms: No Recent Illness/Hospitalization: Yes PFSH [facility] Medical History Acute diarrhea LULY (acute kidney injury) Asthma Dunbar's palsy Bilateral hydronephrosis Bladder disease Blood disorder Bruising Cancer Cardiology follow-up encounter Cervical cancer Chronic renal failure, stage 4 (severe) Easy bruising Essential hypertension Former smoker Gout High anion gap metabolic acidosis History of biliary stent insertion History of cervical cancer History of Clostridium difficile infection History of COVID-19 History of irregular heartbeat History of renal disease Hx of cataract Hx of echocardiogram Hx of vertigo Hyperlipidemia Hypertension Hypokalemia Hyponatremia Leg cramps Lymphocytosis Mild intermittent asthma MRSA infection Near syncope Problem with dialysis access Sepsis Status post placement of implantable loop recorder (~03/29/20) Thyroid disease Urinary incontinence UTI (urinary tract infection) Wears dentures Home Medications albuterol sulfate 90 mcg/actuation aerosol inhaler (Ventolin HFA) 2 puff inhalation Q6H PRN Sob &/Or Wheezing 07/25/18 [History Last Taken 08/01/23] metoprolol tartrate 50 mg tablet 50 mg PO BID blood pressure 01/27/19 [History Last Taken 08/01/23] potassium chloride 20 mEq tablet,extended release(part/cryst) 20 meq PO DAILY supplement 09/01/20 [History Last Taken 08/01/23] amlodipine 2.5 mg tablet 2.5 mg PO DAILY BP #90 tabs 08/12/21 [Rx Last Taken 08/01/23] ipratropium bromide 42 mcg (0.06 %) nasal spray 2 spray intranasal DAILY 11/23/21 [History Last Taken 08/01/23] pantoprazole 40 mg tablet,delayed release 40 mg PO DAILY 03/27/23 [History Last Taken 08/01/23] Allergy/AdvReac Type Severity Reaction Status Date / Time pravastatin Allergy Severe Chest Verified 09/19/23 09:25 tightness procaine [From Novocain] Allergy Severe NEEDS Verified 09/19/23 09:25 FOLLOW-UP sulfamethoxazole Allergy Severe Shortness Verified 09/19/23 09:25 [From Bactrim] of breath trimethoprim [From Bactrim] Allergy Severe Shortness Verified 09/19/23 09:25 of breath [id number] Reductase Allergy Anaphylaxis Verified 09/19/23 09:25 Inhibitor clindamycin AdvReac Severe unsure of Verified 09/19/23 09:25 reaction methylprednisolone AdvReac Severe Pain in Verified 09/19/23 09:25 joints levofloxacin [From Levaquin] AdvReac UNSURE OF Verified 09/19/23 09:25 REACTION Family History Father , 32 yrs old CAD (coronary artery disease) History of coronary artery bypass surgery Mother Cancer Lung CA, Hx tobacco use. Surgical History History of arteriovenostomy for renal dialysis (~09/2021) History of cardiac catheterization (~01/08/18) History of cardiac catheterization History of cholecystectomy History of excision of mass History of hysterectomy History of loop recorder history of radium implant Hx of cystoscopy S/P arteriovenous (AV) fistula creation Social History household members: spouse and children number of children: 6 current occupational status: retired history of recent travel: No Smoking Status: Former smoker second hand exposure: No alcohol intake: never substance use type: does not use what type of physical activity do you participate in: walking saurabh/mu-ism: Non-Zoroastrianism/Independent seatbelt use: always do you feel safe at home: Yes additional social history: - Fernando PALOMO STACIA ED Constitutional Constitutional ED: Reports chills, fever(s) and subjective; Denies sweats or weight loss Eyes Eyes: Denies blurry vision, change in vision or diplopia ENT ENT ED: Reports rhinorrhea; Denies ear pain or sore throat Cardiovascular Cardiovascular: Denies chest pain, orthopnea, palpitations, paroxysmal nocturnaldyspnea or racing heartbeat Respiratory/Chest Respiratory/Chest: Denies cough, dyspnea, dyspnea on exertion, orthopnea or paroxysmal nocturnal dyspnea Gastrointestinal Gastrointestinal: Reports diarrhea and nausea; Denies abdominal pain, constipation, melena or vomiting Genitourinary Genitourinary ED: Denies dysuria, hematuria or urinary frequency Musculoskeletal Musculoskeletal: Denies arthralgias, back pain, myalgias or neck pain Integumentary Reports other Details: Bruising and skin tears secondary to tape. There is alsoevidence of dry skin. ; Denies rash Neurologic Neurologic: Reports weakness; Denies headache(s) or paresthesias Psychiatric Psychiatric: Denies anxiety Hematologic/Lymphatic Hematologic/Lymphatic: Reports easy bruising; Denies easy bleeding EXAM Physical Exam Const Vital Signs: 09/19/23 09:24 09/19/23 09:35 09/19/23 09:59 Temperature 97.3 F L Temperature Source Temporal Pulse Rate 99 Pulse Rate [Lying] 86 Pulse Rate [Sitting (for 1 minute prior to obtaining)] 89 Pulse Rate [Standing (for 1 minute prior to obtaining)] 93 Respiratory Rate 14 Respiratory Effort Normal Respiratory Pattern Normal Blood Pressure 116/79 Blood Pressure [Lying] 113/65 Blood Pressure [Sitting (for 1 minute prior to obtaining)] 101/79 Blood Pressure [Standing (for 1 minute prior to obtaining)] 101/73 Blood Pressure Mean 91 Blood Pressure Mean [Lying] 81 Blood Pressure Mean [Sitting (for 1 minute prior to obtaining)] 86 Blood Pressure Mean [Standing (for 1 minute prior to obtaining)] 82 Pulse Ox 98 Oxygen Delivery Method Room Air Positive well nourished and well developed General Appearance ED: well developed and NAD; Negative for cyanotic, diaphoretic or pallor HEENT Reports dry mucous membranes HEENT Narrative: Head is atraumatic and normocephalic. Ears are normal. Nares are patent. Posterior pharynx out erythema or exudate. Uvula is midline. Mouth ED: Yes dry mucous membranes Mouth: dry mucous membranes Eyes PERRL and EOMs intact bilaterally General Eye ED: Negative for pale conjunctiva or scleral icterus Neck no lymphadenopathy, supple and no JVD Chest Wall inspection of chest normal and palpation of chest normal Resp normal respiratory effort and clear to auscultation bilaterally Cardio regular rate, regular rhythm, S1 normal heart sound, S2 normal heart sound and no murmurs GI normal to inspection, nondistended, normoactive bowel sounds, non-tender, non-distended and no masses; Negative for hepatosplenomegaly Palpation: soft Back/Spine no CVA tenderness Cervical Spine: Negative for cervical spine tenderness Thoracic Spine / Upper Back: Negative for thoracic spinal tenderness Lumbar Spine / Lower Back: Negative for lumbar spinal tenderness Extremity normal to inspection General Extremety ED: Negative for edema or tenderness General Extremity: Negative for edema Neuro oriented x3, CN's II-XII intact bilaterally and no sensory deficits noted Sensorium / Orientation: alert Motor Exam: strength 5/5 throughout Psych mental status grossly normal Skin Skin Narrative: Patient has dry skin. There are multiple bruises noted. Patient attributes this to multiple IVs blood draws and tape. General Skin Exam: Negative for elasticity normal, jaundice or pallor MDM MDM MDM Narrative Medical decision making narrative: With patient having diarrhea and was on antibiotics for 2 weeks need to evaluatefor similar center colitis. C. difficile toxin was ordered. CBC was ordered toassess white count and differential. Patient has been under the care of a oncologist because of concern for leukemia. Electrolyte panel was obtained to assess renal function since she has history of kidney disease and to evaluate for hypokalemia. She has history of hypokalemia per old records. UA was obtained to assess for urinary tract infection. Since patient only has 1 SIRS criteria blood cultures were not obtained nor was a lactate ordered. Urine culture was ordered. History & Record Review Additional record(s) reviewed:: Prior inpatient record (Documented HPI narrative), Prior outpatient record, Prior ED visit and Prior labs Lab Data Attestation: I reviewed the patient's lab results. Lab results narrative: White count is elevated at 20.8 thousand without a shift. Absolute neutrophil count is elevated. Basic metabolic panel reveals significant rise in creatininefrom baseline. Creatinine is 2.88. Macro urinalysis reveals proteinuria, occult blood, nitrites and leukoesterase. Micro is pending. Urine culture was sent. Based on most recent culture and sensitivity patient will receive meropenem. Last creatinine was 1.66 with a GFR 32 EFR now is 17. Microscopic urine revealspyuria without bacteria. Labs: Laboratory Results - last 24 hr 09/19/23 09/19/23 10:15 11:30 WBC 20.8 H RBC 4.54 Hgb 14.3 Hct 43.7 MCV 96.3 MCH 31.5 MCHC 32.7 RDW Std Deviation 51.6 H RDW Coeff of Dewey 14.6 Plt Count 442 MPV 10.2 Immature Gran % (Auto) 0.700 Neut % (Auto) 64.2 Lymph % (Auto) 28.9 Brooks % (Auto) 5.5 Eos % (Auto) 0.3 Baso % (Auto) 0.4 Absolute Neuts (auto) 13.4 H Absolute Lymphs (auto) 6.02 H Nucleated RBC % 0 Differential Comment SCANNED Sodium 134 L Potassium 4.1 Chloride 104 Carbon Dioxide 20.0 L Anion Gap 10 BUN 23 H Creatinine 2.88 H Estim Creat Clear Calc 18.07 Est GFR (MDRD) Af Amer 21 L Est GFR (MDRD) Non-Af 17 L BUN/Creatinine Ratio 8.0 L Glucose 98 Calcium 8.4 L Urine Color Yellow Urine Clarity Cloudy Urine pH 6.0 Ur Specific Parks 1.015 Urine Protein 100 H Urine Glucose (UA) Normal Urine Ketones Negative Urine Occult Blood 150 H Urine Nitrite Positive H Urine Bilirubin Negative Urine Urobilinogen Normal Ur Leukocyte Esterase 500 H Urine RBC 0 SEEN Urine WBC >100 SEEN Ur Squamous Epith Cells 0 SEEN Urine Bacteria 0 SEEN Urine Mucus 0 SEEN Management Discussion w/another healthcare provider: Hospitalist (Poke with hospitalist . Patient be a full admission.) Treatment and Re-Evaluation :: Since patient has elevated white count with pyuria and recent urinary tract infection and significant increase in creatinine with complaint of nausea and diarrhea will call hospitalist for admission versus observation. Discharge Plan Dx/Rx/DC Orders Clinical Impression: Acute dehydration, Pyuria, Diarrhea, Leukocytosis, Acute kidney injury superimposed on chronic kidney disease Disposition Disposition: Acute Care Hospital [facility] What to do if you have Problems For any increased pain, shortness of breath, bleeding, nausea or vomiting, chestpain, or any unexpected problems, contact your Primary Care Provider. Call [facility] ([phone]) or report to the closest Emergency Room. Call 911 if necessary. 09/19/23 9459 <Electronically signed by Altaf Villa MD> Cosigner Signature (if applicable): CC: Dr. Gerardo García MD ~ Signed [facility] Work Phone: 1(560) 524-818409-19-2023 Discharge summary Author John Light [facility] August 07, 2023 11:51am Note Date/Time August 07, 2023 11:47am [facility] Medical Records Department [address] [place] [address] Instructions for Home/Discharge Instructions 08/07/23 1144 MR#: [id number] Acct: [id number] Name: TODD DELONG Rep #:[id number] : 1950 72 From: John Light DO PCP: Dr. Gerardo García MD Status:ADM I N Discharge Instructions Diet Discharge Diet: No restrictions Activity Discharge Activity: Return to Normal Activity Weight Bearing Status: Full weight bearing Follow Up Care Test Results: Test results from this visit will be discussed in further detail at your follow- up appointment, if applicable. Discharge Plan Admission Admit Date/Time: 08/02/23 15:49 Primary Reason for Your Visit: urinary tract infection Attending Provider: John Light Primary Care Provider: Gerardo García Chi Consulting Providers: Joshua Strickland; Holly Echeverria; Rafa Lofton; Ky Goddard Discharge Orders/Prescriptions Prescriptions: New piperacillin-tazobactam 3.375 gram recon soln 3.375 g IV Q8H 13 Days Rx Instructions: stop date 08/20/23 dx: pseudomonas pyelonephritis weekly bmp, cbc. Fax to [phone] Continued albuterol sulfate [Ventolin HFA] 90 mcg/actuation HFA aerosol inhaler 2 puff INHALATION Q6H PRN (Reason: Sob &/Or Wheezing) pantoprazole 40 mg tablet,delayed release (DR/EC) 40 mg PO DAILY Hold Instructions: Order Completed metoprolol tartrate 50 MG tablet 50 mg PO BID potassium chloride 20 MEQ tablet,ER particles/crystals 20 meq PO DAILY ipratropium bromide 42 mcg (0.06 %) spray,non-aerosol 2 spray INTRANASAL DAILY amlodipine 2.5 mg tablet 2.5 mg PO DAILY Qty: 90 3RF Referrals / Follow Up: Gerardo García Chi, MD [Primary Care Provider] - Within 1 Week (get a repeat BMP lab test this Sunday) Disposition Disposition (needs filled in before D/C Order can be placed): Home Health Service 08/07/23 1151<Electronically signed by John Light DO>John Light DO CC: Dr. Rafa Lofton DO; Dr. Joshua Strickland MD; Dr. Holly Echeverria MD; Dr.Robert Nitza MD; Dr. Gerardo García MD ~ Signed [facility] Work Phone: [phone]) 296-100809-18-2023 Consult note Author Ky Goddard [facility] August 06, 2023 7:15pm Note Date/Time August 06, 2023 7:15pm [facility] Medical Records Department [address] [place] [address] Consultation - Infectious Dx 08/06/231911 MR#: [id number] Acct: [id number] Name: TODD DELONG Rep #:[id number] : 1950 72 From: Ky tejeda MD PCP: Dr. Gerardo García MD Status:ADM I N Location: [place] [address] Assessment & Plan Assessment/Plan (1) Hydronephrosis: QUALIFIERS: Hydronephrosis type: other Qualified Code(s): N13.39 - Other hydronephrosis (2) Complicated urinary tract infection: PLAN: Now s/p 08/06/23 bilat stent exchange by Dr. Strickland. Ucx again with PsA. On zosyn. Will order midline and 2 week course home iv abx. Will follow, thank you, d/w welfare case worker HPI Consult Data Date of Consult: 08/06/23 HPI Narrative HPI Narrative: TODD DELONG, is a 72 F with history of cervical cancer, CKD, bilateral hydronephrosis with chronic ureteral stents, presented with acute onset, one dayof fever, chills, moderate R flank pain. No n/v/d. No dysuria. Came to ED, admitted on zosyn. Taken to OR 08/[address] Strickland for stent exchange. Feeling better this PM, pain resolved. Full ROS performed and neg except as noted above. PFSH Medical History Acute diarrhea LULY (acute kidney injury) Asthma Dunbar's palsy Bilateral hydronephrosis Bladder disease Blood disorder Bruising Cancer Cardiology follow-up encounter Cervical cancer Chronic renal failure, stage 4 (severe) Easy bruising Essential hypertension Former smoker Gout High anion gap metabolic acidosis History of biliary stent insertion History of cervical cancer History of Clostridium difficile infection History of COVID-19 History of irregular heartbeat History of renal disease Hx of cataract Hx of echocardiogram Hx of vertigo Hyperlipidemia Hypertension Hypokalemia Hyponatremia Leg cramps Lymphocytosis Mild intermittent asthma MRSA infection Near syncope Problem with dialysis access Sepsis Status post placement of implantable loop recorder (~03/29/20) Thyroid disease Urinary incontinence UTI (urinary tract infection) Wears dentures Home Medications albuterol sulfate 90 mcg/actuation aerosol inhaler (Ventolin HFA) 2 puff inhalation Q6H PRN Sob &/Or Wheezing 07/25/18 [History Last Taken 08/01/23] metoprolol tartrate 50 mg tablet 50 mg PO BID blood pressure 01/27/19 [History Last Taken 08/01/23] potassium chloride 20 mEq tablet,extended release(part/cryst) 20 meq PO DAILY supplement 09/01/20 [History Last Taken 08/01/23] amlodipine 2.5 mg tablet 2.5 mg PO DAILY BP #90 tabs 08/12/21 [Rx Last Taken 08/01/23] ipratropium bromide 42 mcg (0.06 %) nasal spray 2 spray intranasal DAILY 11/23/21 [History Last Taken 08/01/23] pantoprazole 40 mg tablet,delayed release 40 mg PO DAILY 03/27/23 [History Last Taken 08/01/23] piperacillin-tazobactam 3.375 gram intravenous solution 3.375 g IV Q8H 13 days 08/06/23 [Rx Last Taken Unknown] Allergy/AdvReac Type Severity Reaction Status Date / Time pravastatin Allergy Severe Chest Verified 06/08/23 09:50 tightness procaine [From Novocain] Allergy Severe NEEDS Verified 06/08/23 09:50 FOLLOW-UP sulfamethoxazole Allergy Severe Shortness Verified 06/08/23 09:50 [From Bactrim] of breath trimethoprim [From Bactrim] Allergy Severe Shortness Verified 06/08/23 09:50 of breath Dehuetm-AVM-ClS Reductase Allergy Anaphylaxis Verified 06/08/23 09:50 Inhibitor clindamycin AdvReac Severe unsure of Verified 06/08/23 09:50 reaction methylprednisolone AdvReac Severe Pain in Verified 06/08/23 09:50 joints levofloxacin [From Levaquin] AdvReac UNSURE OF Verified 06/08/23 09:50 REACTION Family History Father , 32 yrs old CAD (coronary artery disease) History of coronary artery bypass surgery Mother Cancer Lung CA, Hx tobacco use. Surgical History History of arteriovenostomy for renal dialysis (~09/2021) History of cardiac catheterization (~01/08/18) History of cardiac catheterization History of cholecystectomy History of excision of mass History of hysterectomy History of loop recorder history of radium implant Hx of cystoscopy S/P arteriovenous (AV) fistula creation Social History household members: spouse and children number of children: 6 current occupational status: retired history of recent travel: No Smoking Status: Former smoker second hand exposure: No alcohol intake: never substance use type: does not use what type of physical activity do you participate in: walking saurabh/mu-ism: Non-Zoroastrianism/Independent seatbelt use: always do you feel safe at home: Yes additional social history: - Fernando Physical Exam Const alert, oriented x3 and no apparent distress General Appearance: cooperative and well developed HEENT normocephalic and head/scalp atraumatic Eyes PERRL and EOMs intact bilaterally Neck supple and No nodes Resp normal air movement and clear to auscultation bilaterally Cardio regular rate and regular rhythm GI soft to palpation, non-tender and non-distended Extremity General Extremity: Negative for edema Skin no rashes or lesions noted Neuro CN's II-XII intact bilaterally Lab / Micro Data Attestation: I reviewed the patient's lab results. 08/05/23 05:48 08/06/23 04:35 Labs: Laboratory Results - last 24 hr 08/02/23 13:05: Diff Path Review Reviewed 08/06/23 04:35: Sodium 143, Potassium 3.4 L, Chloride 115 H, Carbon Dioxide 21.0, Anion Gap 7, BUN 21 H, Creatinine 2.15 H, Estim Creat Clear Calc 24.56, Est GFR (MDRD) Af Amer 29 L, Est GFR (MDRD) Non-Af 24 L, BUN/Creatinine Ratio 9.8 L, Glucose 89, Calcium 7.8 L 08/06/231914 <Electronically signed by Ky Goddard MD> Cosigner Signature (if applicable): CC: Dr. Rafa Lofton DO; Dr. Joshua Strickland MD; Dr. Holly Echeverria MD; Dr.Robert Nitza MD; Dr. Gerardo García MD~ Signed [facility] Work Phone: [phone]) 874-366809-18-2023 Progress note Author [facility] August 06, 2023 6:05pm Note Date/Time August 06, 2023 6:05pm [facility] Medical Records Department [address] [place] [address] Progress Note - Hospitalist 08/06/231756 MR#: [id number] Acct: [id number] Name: TODD DELONG Rep #:[id number] : 1950 72 From: John Light DO PCP: Dr. Gerardo García MD Status:ADM I N Location: [place] [address] Reason for Visit Reason for Visit: Diagnoses Essential (primary) hypertension (08/02/23) Other hydronephrosis (08/02/23) Acute kidney failure, unspecified (08/02/23) Chronic kidney disease, unspecified (08/02/23) Urinary tract infection, site not specified (08/02/23) Subjective Subjective Patient was seen and examined today, she had her ureteral stents replaced today,she also had a PICC line inserted for outpatient IV antibiotic treatment. Patient has Pseudomonas in her urine which is resistant to quinolones, infectious diseases is planned to give the patient IV Zosyn for coverage. Objective Data Objective Data Vital Signs: Vital Signs Temp Pulse Resp BP Pulse Ox O2 Del Method 97.8 F 79 18 118/59 L 98 Room Air 08/06/23 13:30 08/06/23 13:30 08/06/23 13:30 08/06/23 13:30 08/06/23 13:30 08/06/23 14:12 Oxygen Delivery Method Room Air Weight: 84.3 kg Body Mass Index (BMI) 28.2 Intake & Output: Intake and Output for Last 24 Hours 08/04/23 08/05/23 08/06/23 23:59 23:59 23:59 Intake Total 850 / 850 1850 / 1850 100 / 100 Output Total 400 / 400 Balance 850 / 850 1850 / 1850 -300 / -300 Lab / Micro Data 08/05/23 05:48 08/06/23 04:35 Labs: Laboratory Results - last 24 hr 08/02/23 13:05: Diff Path Review Reviewed 08/06/23 04:35: Sodium 143, Potassium 3.4 L, Chloride 115 H, Carbon Dioxide 21.0, Anion Gap 7, BUN 21 H, Creatinine 2.15 H, Estim Creat Clear Calc 24.56, Est GFR (MDRD) Af Amer 29 L, Est GFR (MDRD) Non-Af 24 L, BUN/Creatinine Ratio 9.8 L, Glucose 89, Calcium 7.8 L Micro: Microbiology 08/02/23 13:50 Urine Catheter - Catheter Urine Culture - Final Pseudomonas aeruginosa 08/02/23 14:10 Blood Culture (Wb) - Right Forearm Blood Culture - Preliminary No growth in 48 hours. 08/02/23 14:10 Blood Culture (Wb) - Anticubital Right Blood Culture - Preliminary No growth in 48 hours. 08/02/23 12:55 Nasal Secretion SARS-CoV-2 Antigen (Rapid) - Final Physical Exam Const alert, oriented x3, no apparent distress and healthy appearing General Appearance: cooperative, well kempt and well developed Orientation / Consciousness: awake, oriented to person, oriented to place and oriented to time HEENT normocephalic and moist oral mucous membranes Eyes PERRL, EOMs intact bilaterally and conjunctivae normal Neck supple, no JVD, thyroid normal and no carotid bruits General: trachea midline Resp normal respiratory effort and clear to auscultation bilaterally Auscultation: Negative for rales, rhonchi or wheezes Cardio regular rate, regular rhythm, no murmurs, no rub and no gallops GI normal to inspection, nondistended, normoactive bowel sounds, soft to palpation,non-tender and non-distended Extremity no clubbing, cyanosis or edema Skin no rashes or lesions noted General Skin Exam: no breakdown Neuro oriented x3, CN's II-XII intact bilaterally, no focal motor deficits and no sensory deficits noted Sensorium / Orientation: awake and alert Speech: speech normal Psych affect normal Assessment & Plan Assessment/Plan (1) Hydronephrosis: QUALIFIERS: Hydronephrosis type: other Qualified Code(s): N13.39 - Other hydronephrosis PLAN: Plan 1. Pseudomonas urinary tract infection with resistant Pseudomonas strain (quinolone resistant)-again patient had a PICC line inserted today, she will continue on Zosyn as an outpatient per infectious diseases #2 acute kidney injury on a backdrop of chronic kidney disease stage IIIb- continue to monitor creatinine, BMP will be repeated tomorrow #3 hydronephrosis-patient had her ureteral stents replaced today, urology is participating in her care #4 hypokalemia-patient's BMP will be rechecked again tomorrow #5 essential hypertension-patient will remain on her present blood pressure medications, monitor, evaluate, assess, and treat Total clinical time spent by myself addressing the patient's medical issues, reviewing all of her data, and collaborating with the patient's care team: 35 minutes Charges/Coding Visit Charges Inpatient E&M: 67932 Subs Hosp L2 08/06/23 1805 <Electronically signed by John Light DO> Cosigner Signature (if applicable): CC: ~ Signed [facility] Work Phone: 1(668) 495-314109-18-2023 Procedure [facility] 08-05-2023 Progress note Author Rafa Lofton [facility] August 05, 2023 12:39pm Note Date/Time August 05, 2023 7:21am [facility] Medical Records Department [address] [place] [id number] Progress Note - Hospitalist 08/05/23 0717 MR#: [id number] Acct: [id number] Name: TODD DELONG Rep #:[id number] : 1950 72 From: Rafa Lofton DO PCP: Dr. Gerardo García MD Status:ADM I N Location: [place] [address] Reason for Visit Reason for Visit: Diagnoses Essential (primary) hypertension (08/02/23) Other hydronephrosis (08/02/23) Acute kidney failure, unspecified (08/02/23) Chronic kidney disease, unspecified (08/02/23) Urinary tract infection, site not specified (08/02/23) Subjective Subjective Feels better. No new issues. Objective Data Objective Data Vital Signs: Vital Signs Temp Pulse Resp BP Pulse Ox O2 Del Method 36.5 C L 91 16 122/69 H 98 Room Air 08/05/23 03:08 08/05/23 03:08 08/05/23 03:08 08/05/23 03:08 08/05/23 03:08 08/05/23 03:08 Oxygen Delivery Method Room Air Weight: 84.3 kg Body Mass Index (BMI) 28.2 Intake & Output: Intake and Output for Last 24 Hours 08/03/23 08/04/23 08/05/23 23:59 23:59 23:59 Intake Total 2865 / 2865 850 / 850 100 / 100 Output Total 400 / 400 Balance 2465 / 2465 850 / 850 100 / 100 Lab / Micro Data 08/05/23 05:48 08/05/23 05:48 Labs: Laboratory Results - last 24 hr 08/04/23 06:10: Sodium 139, Potassium 3.4 L, Chloride 113 H, Carbon Dioxide 17.0L, Anion Gap 9, BUN 19 H, Creatinine 2.36 H, Estim Creat Clear Calc 22.38, Est GFR (MDRD) Af Amer 26 L, Est GFR (MDRD) Non-Af 22 L, BUN/Creatinine Ratio 8.1 L,Glucose 87, Calcium 7.3 L 08/05/23 05:48: WBC 9.6, RBC 3.45 L, Hgb 11.0 L, Hct 34.3 L, MCV 99.4 H, MCH 31.9, MCHC 32.1, RDW Std Deviation 53.1 H, RDW Coeff of Dewey 14.6, Plt Count 238,MPV 10.5, Immature Gran % (Auto) 0.500, Neut % (Auto) 55.3, Lymph % (Auto) 35.3,Brooks % (Auto) 7.0, Eos % (Auto) 1.5, Baso % (Auto) 0.4, Absolute Neuts (auto) 5.3, Absolute Lymphs (auto) 3.37, Nucleated RBC % 0 Micro: Microbiology 08/02/23 14:10 Blood Culture (Wb) - Right Forearm Blood Culture - Preliminary No growth in 48 hours. 08/02/23 14:10 Blood Culture (Wb) - Anticubital Right Blood Culture - Preliminary No growth in 48 hours. 08/02/23 13:50 Urine Catheter - Catheter Urine Culture - Preliminary Pseudomonas aeruginosa 08/02/23 12:55 Nasal Secretion SARS-CoV-2 Antigen (Rapid) - Final Physical Exam Const alert and no apparent distress HEENT head/scalp atraumatic Neuro no focal motor deficits Sensorium / Orientation: awake Psych affect normal Assessment & Plan Assessment/Plan (1) Complicated urinary tract infection: PLAN: UTI and pyelonephritis. Cannot rule out nidus of infection from stent. consult Data: * UA w 500 LE, >100 WBCs * Lactic acid within normal limits * UCx showing pseudomonas sensitive to aztreonam, amikacin, gent, imipenem, meropenem, pip/tazo and torbamycin * BCx pending * CT A/P: mild to moderate left renal pelvocaliectasis w indwelling vesicla stent. More severe obstruction of the right kidney s/p stent w swelling of the kidney and inflammatory changes in joi fat. Abx: * Cefepime since admission. Clinically better, but was not on the sensitivity panel. Will change to pip/tazo. Since no oral options available, will consult ID. (2) LULY (acute kidney injury): PLAN: Unclear etiology at this time Admission creatinine 2.45, baseline around 1.7 (CW CKD IIIb) On IVF Monitor (3) Hydronephrosis: QUALIFIERS: Hydronephrosis type: other Qualified Code(s): N13.39 - Other hydronephrosis PLAN: on board. Tentative plan for stent change while in the hospital. PLAN: Plan Chronic conditions: * HTN: stable. resume metoprolol and amlodipine w hold parameters VTE proph: SQ heparin Disposition: TBD Charges/Coding Visit Charges Inpatient E&M: 52592 Subs Hosp L2 08/05/23 1238 <Electronically signed by Rafa Lofton DO> Cosigner Signature (if applicable): CC: ~ Signed [facility] Work Phone: 1(465) 386-116309-17-2023 Consult note Author Joshua Strickland [facility] August 05, 2023 11:50am Note Date/Time August 05, 2023 11:50am [facility] Medical Records Department [address] [place] [address] Consultation 08/05/23 1149 MR#: [id number] Acct: [id number] Name: TODD DELONG Rep #:[id number] : 1950 72 From: Joshua Strickland MD PCP: Dr. Gerardo García MD Status:ADM I N Location: [place] [address] Consult Date of Consult: 08/05/23 Reason for Consult 72-year-old female presents the hospital with urinary tract infection with Pseudomonas she is on appropriate antibiotics to cover the Pseudomonas. I have her on the schedule for tomorrow for cystoscopy and bilateral stent changes and can upsize the stents from 6 Tongan 7 Tongan to help drain both kidneys she still has some bilateral hydronephrosis. Patient was wishing to go home and hada stent as an outpatient but I recommended we just keep her here in the hospitalcontinue antibiotics changes stents tomorrow and then after I think the stents are changed she can go home with appropriate course of antibiotics. 08/05/23 1150 <Electronically signed by Joshua Strickland MD> Cosigner Signature (if applicable): CC: Dr. Joshua Strickland MD; Dr. Holly Echeverria MD; Dr. Gerardo García MD~ Signed [facility] Work Phone: 1(136) 675-447709-16-2023 Progress note Author Rafa Lofton [facility] August 04, 2023 12:41pm Note Date/Time August 04, 2023 7:26am [facility] Medical Records Department [address] [place] [address] Progress Note - Hospitalist 08/04/23 0719 MR#: [id number] Acct: [id number] Name: TODD DELONG Rep #:[id number] : 1950 72 From: Rafa Lofton DO PCP: Dr. Gerardo García MD Status:ADM I N Location: [place] [address] Reason for Visit Reason for Visit: Diagnoses Essential (primary) hypertension (08/02/23) Acute kidney failure, unspecified (08/02/23) Chronic kidney disease, unspecified (08/02/23) Urinary tract infection, site not specified (08/02/23) Subjective Subjective Feels better. Wants to go home Objective Data Objective Data Vital Signs: Vital Signs Temp Pulse Resp BP Pulse Ox O2 Del Method 36.9 C 93 18 136/64 H 96 Room Air 08/04/23 05:45 08/04/23 04:08/04/23 04:08/04/23 04:09 08/04/23 04:08/04/23 04:10 Oxygen Delivery Method Room Air Weight: 84.3 kg Body Mass Index (BMI) 28.2 Intake & Output: Intake and Output for Last 24 Hours 08/02/23 08/03/23 08/04/23 23:59 23:59 23:59 Intake Total 1114.32 / 1114.32 2865 / 2865 350 / 350 Output Total 400 / 400 Balance 1114.32 / 1114.32 2465 / 2465 350 / 350 Lab / Micro Data 08/04/23 06:10 08/04/23 06:10 Labs: Laboratory Results - last 24 hr 08/03/23 06:20: WBC 15.9 H, RBC 3.73 L, Hgb 11.9 L, Hct 37.8, MCV 101.3 H, MCH 31.9, MCHC 31.5 L, RDW Std Deviation 54.3 H, RDW Coeff of Dewey 14.6, Plt Count 198, MPV 11.2, Immature Gran % (Auto) 0.600, Neut % (Auto) 73.5 H, Lymph % (Auto) 17.9 L, Brooks % (Auto) 7.7, Eos % (Auto) 0.0, Baso % (Auto) 0.3, Absolute Neuts (auto) 11.7 H, Absolute Lymphs (auto) 2.83, Nucleated RBC % 0, Sodium 137,Potassium 3.8, Chloride 110 H, Carbon Dioxide 19.0 L, Anion Gap 8, BUN 19 H, Creatinine 2.44 H, Estim Creat Clear Calc 21.64, Est GFR (MDRD) Af Amer 25 L, Est GFR (MDRD) Non-Af 21 L, BUN/Creatinine Ratio 7.8 L, Glucose 81, Calcium 7.0 L, Total Bilirubin 1.00, AST 13 L, ALT 10 L, Alkaline Phosphatase 90, Total Protein 6.4, Albumin 2.1 L, Globulin 4.3 H, Albumin/Globulin Ratio 0.5 L 08/04/23 06:10: WBC 12.7 H, RBC 3.58 L, Hgb 11.5 L, Hct 35.6 L, MCV 99.4 H, MCH 32.1 H, MCHC 32.3, RDW Std Deviation 53.0 H, RDW Coeff of Dewey 14.4, Plt Count 214, MPV 11.1, Immature Gran % (Auto) 0.600, Neut % (Auto) 64.3, Lymph % (Auto) 26.0, Brooks % (Auto) 8.1, Eos % (Auto) 0.6, Baso % (Auto) 0.4, Absolute Neuts (auto) 8.2 H, Absolute Lymphs (auto) 3.30, Nucleated RBC % 0, Sodium 139, Potassium 3.4 L, Chloride 113 H, Carbon Dioxide 17.0 L, Anion Gap 9, BUN 19 H, Creatinine 2.36 H, Estim Creat Clear Calc 22.38, Est GFR (MDRD) Af Amer 26 L, Est GFR (MDRD) Non-Af 22 L, BUN/Creatinine Ratio 8.1 L, Glucose 87, Calcium 7.3 L Micro: Microbiology 08/02/23 13:50 Urine Catheter - Catheter Urine Culture - Preliminary GNR Poss Pseudomonas sp 08/02/23 12:55 Nasal Secretion SARS-CoV-2 Antigen (Rapid) - Final Physical Exam Const alert and no apparent distress HEENT head/scalp atraumatic Resp normal respiratory effort, no retractions, no use of accessory muscles and clearto auscultation bilaterally Cardio regular rate, regular rhythm, S1 normal heart sound and S2 normal heart sound GI normal to inspection, nondistended, normoactive bowel sounds, soft to palpation,non-tender and non-distended Extremity normal to inspection Assessment & Plan Assessment/Plan (1) Complicated urinary tract infection: PLAN: UTI and pyelonephritis consult Data: * UA w 500 LE, >100 WBCs * Lactic acid within normal limits * UCx showing GNR, possible pseudomonas * BCx pending * CT A/P: mild to moderate left renal pelvocaliectasis w indwelling vesicla stent. More severe obstruction of the right kidney s/p stent w swelling of the kidney and inflammatory changes in joi fat. Abx: * Cefepime (2) LULY (acute kidney injury): PLAN: Unclear etiology at this time Admission creatinine 2.45, baseline around 1.7 (CW CKD IIIb) On IVF Monitor (3) Hydronephrosis: QUALIFIERS: Hydronephrosis type: other Qualified Code(s): N13.39 - Other hydronephrosis PLAN: on board. Tentative plan for stent change while in the hospital. PLAN: Plan Chronic conditions: * HTN: stable. resume metoprolol and amlodipine w hold parameters VTE proph: SQ heparin Disposition: To be determined. Patient would prefer to follow-up with urology as outpatient for the stent removal. Told her I would want to follow-up on the final culture results to know if she can be discharged today with an oral optionfor her pyelonephritis. Charges/Coding Visit Charges Inpatient E&M: 07788 Subs Hosp L2 08/04/23 1241 <Electronically signed by Rafa Lofton DO> Cosigner Signature (if applicable): CC: ~ Signed [facility] Work Phone: [phone]) 233-234309-16-2023 Consult note Author Joshua Strickland [facility] August 04, 2023 9:19am Note Date/Time August 04, 2023 9:20am [facility] Medical Records Department [address] [place] [address] Consultation 08/04/2317 MR#: [id number] Acct: [id number] Name: TODD DELONG MONI Rep #:[id number] : 1950 72 From: Joshua Strickland MD PCP: Dr. Gerardo García MD Status:ADM I N Location: [place] [address] Consult Date of Consult: 08/04/23 Reason for Consult 72-year-old female with history of cancer in the past and radiation of the pelvis is developed bilateral ureteral strictures and managed with chronic stents. She presented to the hospital with a urinary tract infection she has Pseudomonas infection very likely this is can be a resistant infection. We willhave to see what the sensitivity shows high likelihood that what ever she is getting now probably will not be the right antibiotic we will have to switch it to something. I will probably plan to change her stents on Mondays and put her on her cystoscopy and stent change by Sunday hopefully by then she will be on appropriate antibiotics. Assessment & Plan Assessment/Plan (1) Hydronephrosis: QUALIFIERS: Hydronephrosis type: other Qualified Code(s): N13.39 - Other hydronephrosis PLAN: Plan for cystoscopy and bilateral stent change got on the schedule for Sunday morning. (2) Complicated urinary tract infection: 08/04/23918 <Electronically signed by Joshua Strickland MD> Cosigner Signature (if applicable): CC: Dr. Joshua Strickland MD; Dr. Holly Echeverria MD; Dr. Gerardo García MD~ Signed [facility] Work Phone: [phone] 481-550709-15-2023 Consult note Author Joshua Strickland [facility] August 03, 2023 5:05pm Note Date/Time August 03, 2023 5:05pm [facility] Medical Records Department [address] [place] [address] Consultation - Urology 08/03/23 1703 MR#: [id number] Acct: [id number] Name: TODD DELONG Rep #:[id number] : 1950 72 From: Joshua Strickland MD PCP: Dr. Gerardo García MD Status:ADM I N Location: [place] [address] Assessment & Plan Assessment/Plan (1) Complicated urinary tract infection: PLAN: Continue with antibiotics lets see what the cultures grow up and then whatto tailor the antibiotics per the culture results. Once she has enough coveragein place I think it may plan for stent change while she is here in the hospital and await to the cultures are done and sensitivities are done and make sure she is on proper antibiotics be nice to switch her stents out while she is on properantibiotics. She does demonstrate some mild bilateral hydronephrosis surrounding the stents are working the best on the place and newer and larger stents when this happens. We will follow with you (2) Acute kidney injury superimposed on CKD: HPI Consult Data Date of Consult: 08/03/23 HPI Narrative Reason for Consultation: Urinary tract infection bilateral stents chronic HPI Narrative: TODD DELONG, is a 72 F who presents to the hospital with a urinary tract infection cultures are pending we will see what the culture results show and thesensitivities show CT scan was done to does demonstrate stents bilaterally in place but she does have some mild bilateral hydronephrosis her creatinine is about 2.44 still low but higher than her baseline. She otherwise just was having some subjective fevers that made her come to the hospital. [facility] Medical History Acute diarrhea LULY (acute kidney injury) Asthma Dunbar's palsy Bilateral hydronephrosis Bladder disease Blood disorder Bruising Cancer Cardiology follow-up encounter Cervical cancer Chronic renal failure, stage 4 (severe) Easy bruising Essential hypertension Former smoker Gout High anion gap metabolic acidosis History of biliary stent insertion History of cervical cancer History of Clostridium difficile infection History of COVID-19 History of irregular heartbeat History of renal disease Hx of cataract Hx of echocardiogram Hx of vertigo Hyperlipidemia Hypertension Hypokalemia Hyponatremia Leg cramps Lymphocytosis Mild intermittent asthma MRSA infection Near syncope Problem with dialysis access Sepsis Status post placement of implantable loop recorder (~03/29/20) Thyroid disease Urinary incontinence UTI (urinary tract infection) Wears dentures Home Medications albuterol sulfate 90 mcg/actuation aerosol inhaler (Ventolin HFA) 2 puff inhalation Q6H PRN Sob &/Or Wheezing 07/25/18 [History Last Taken 08/01/23] metoprolol tartrate 50 mg tablet 50 mg PO BID blood pressure 01/27/19 [History Last Taken 08/01/23] potassium chloride 20 mEq tablet,extended release(part/cryst) 20 meq PO DAILY supplement 09/01/20 [History Last Taken 08/01/23] amlodipine 2.5 mg tablet 2.5 mg PO DAILY BP #90 tabs 08/12/21 [Rx Last Taken 08/01/23] ipratropium bromide 42 mcg (0.06 %) nasal spray 2 spray intranasal DAILY 11/23/21 [History Last Taken 08/01/23] pantoprazole 40 mg tablet,delayed release 40 mg PO DAILY 03/27/23 [History Last Taken 08/01/23] Allergy/AdvReac Type Severity Reaction Status Date / Time pravastatin Allergy Severe Chest Verified 06/08/23 09:50 tightness procaine [From Novocain] Allergy Severe NEEDS Verified 06/08/23 09:50 FOLLOW-UP sulfamethoxazole Allergy Severe Shortness Verified 06/08/23 09:50 [From Bactrim] of breath trimethoprim [From Bactrim] Allergy Severe Shortness Verified 06/08/23 09:50 of breath Iusvout-KBG-QvU Reductase Allergy Anaphylaxis Verified 06/08/23 09:50 Inhibitor clindamycin AdvReac Severe unsure of Verified 06/08/23 09:50 reaction methylprednisolone AdvReac Severe Pain in Verified 06/08/23 09:50 joints levofloxacin [From Levaquin] AdvReac UNSURE OF Verified 06/08/23 09:50 REACTION Family History Father , 32 yrs old CAD (coronary artery disease) History of coronary artery bypass surgery Mother Cancer Lung CA, Hx tobacco use. Surgical History History of arteriovenostomy for renal dialysis (~09/2021) History of cardiac catheterization (~01/08/18) History of cardiac catheterization History of cholecystectomy History of excision of mass History of hysterectomy History of loop recorder history of radium implant Hx of cystoscopy S/P arteriovenous (AV) fistula creation Social History household members: spouse and children number of children: 6 current occupational status: retired history of recent travel: No Smoking Status: Former smoker second hand exposure: No alcohol intake: never substance use type: does not use what type of physical activity do you participate in: walking saurabh/mu-ism: Non-Zoroastrianism/Independent seatbelt use: always do you feel safe at home: Yes additional social history: - Fernando PALOMO Constitutional Constitutional: Denies chills, fever(s) or malaise Eyes Eyes: Denies blurry vision or change in vision ENT HEENT: Reports none Cardiovascular Cardiovascular: Denies chest pain or palpitations Respiratory/Chest Respiratory/Chest: Denies cough or shortness of breath with exertion Gastrointestinal Gastrointestinal: Denies abdominal pain, constipation or diarrhea Musculoskeletal Musculoskeletal: Denies back pain, joint stiffness or joint swelling Integumentary Integumentary: Denies dry skin, jaundice, lesions or rash Neurologic Neurologic: Denies confusion, syncope or weakness Psychiatric Psychiatric: Reports none; Denies anxiety or depression Endocrine Endocrinology: Denies excessive sweating, fatigue or flushing Hematologic/Lymphatic Hematologic/Lymphatic: Denies anemia, easy bleeding or easy bruising Physical Exam Const alert and oriented x3 General Appearance: cooperative HEENT normocephalic, head/scalp atraumatic, EAC's normal and TM's normal bilaterally Eyes PERRL and EOMs intact bilaterally Pupil: sluggish Neck no lymphadenopathy, supple and no JVD General: trachea midline Lymph Lymphatic: no lymphadenopathy noted, lymphedema and lymphadenopathy Resp normal respiratory effort, normal air movement and clear to auscultation bilaterally Cardio regular rate, regular rhythm and peripheral pulses 2+ throughout GI soft to palpation, non-tender and non-distended Extremity normal capillary refill and no clubbing, cyanosis or edema General Extremity: no tenderness to palpation of joints or extremities Skin no rashes or lesions noted General Skin Exam: turgor normal Lesions: no lesions Rashes: no rashes Neuro CN's II-XII intact bilaterally Speech: speech normal Motor Exam: strength 5/5 throughout; Negative for general weakness Psych thought process normal, cooperative and affect normal Appearance: appropriate Medical Records Data Attestation: I reviewed the patient's medical records Lab / Micro Data 08/03/23 06:20 08/03/23 06:20 Labs: Laboratory Results - last 24 hr 08/02/23 18:19: Lactic Acid 1.6 08/03/23 06:20: WBC 15.9 H, RBC 3.73 L, Hgb 11.9 L, Hct 37.8, MCV 101.3 H, MCH 31.9, MCHC 31.5 L, RDW Std Deviation 54.3 H, RDW Coeff of Dewey 14.6, Plt Count 198, MPV 11.2, Immature Gran % (Auto) 0.600, Neut % (Auto) 73.5 H, Lymph % (Auto) 17.9 L, Brooks % (Auto) 7.7, Eos % (Auto) 0.0, Baso % (Auto) 0.3, Absolute Neuts (auto) 11.7 H, Absolute Lymphs (auto) 2.83, Nucleated RBC % 0, Sodium 137,Potassium 3.8, Chloride 110 H, Carbon Dioxide 19.0 L, Anion Gap 8, BUN 19 H, Creatinine 2.44 H, Estim Creat Clear Calc 21.64, Est GFR (MDRD) Af Amer 25 L, Est GFR (MDRD) Non-Af 21 L, BUN/Creatinine Ratio 7.8 L, Glucose 81, Calcium 7.0 L, Total Bilirubin 1.00, AST 13 L, ALT 10 L, Alkaline Phosphatase 90, Total Protein 6.4, Albumin 2.1 L, Globulin 4.3 H, Albumin/Globulin Ratio 0.5 L Micro: Microbiology 08/02/23 13:50 Urine Catheter - Catheter Urine Culture - Preliminary GNR Poss Pseudomonas sp 08/02/23 12:55 Nasal Secretion SARS-CoV-2 Antigen (Rapid) - Final 08/03/23 1705 <Electronically signed by Joshua Strickland MD> Cosigner Signature (if applicable): CC: Dr. Joshua Strickland MD; Dr. Holly Echeverria MD; Dr. Gerardo García MD~ Signed [facility] Work Phone: 1(402) 864-597609-15-2023 Progress note Author Rafa Lofton [facility] August 03, 2023 12:30pm Note Date/Time August 03, 2023 7:32am [facility] Medical Records Department [address] [place] [id number] Progress Note - Hospitalist 08/03/23 0721 MR#: [id number] Acct: [id number] Name: TODD DELONG MONI Rep #:[id number] : 1950 72 From: Rafa Lofton DO PCP: Dr. Gerardo García MD Status:ADM I N Location: [place] [address] Reason for Visit Reason for Visit: Diagnoses Essential (primary) hypertension (08/02/23) Acute kidney failure, unspecified (08/02/23) Chronic kidney disease, unspecified (08/02/23) Urinary tract infection, site not specified (08/02/23) Subjective Subjective Feels better. Denies complaints. No flank/abdominal pain. Objective Data Objective Data Vital Signs: Vital Signs Temp Pulse Resp BP Pulse Ox O2 Del Method 37.4 C H 98 18 123/58 H 95 Room Air 08/03/23 03:44 08/03/23 03:44 08/03/23 03:44 08/03/23 03:44 08/03/23 03:44 08/03/23 03:44 Oxygen Delivery Method Room Air Weight: 84.3 kg Body Mass Index (BMI) 28.2 Intake & Output: Intake and Output for Last 24 Hours 08/01/23 08/02/23 08/03/23 23:59 23:59 23:59 Intake Total 1114.32 / 1114.32 1200 / 1200 Output Total 400 / 400 Balance 1114.32 / 1114.32 800 / 800 Lab / Micro Data 08/03/23 06:20 08/03/23 06:20 Labs: Laboratory Results - last 24 hr 08/02/23 13:05: WBC 19.6 H, RBC 4.45, Hgb 14.0, Hct 43.5, MCV 97.8, MCH 31.5, MCHC 32.2, RDW Std Deviation 51.8 H, RDW Coeff of Dewey 14.3, Plt Count 294, MPV 10.6, Immature Gran % (Auto) 0.700, Neut % (Auto) 74.9 H, Lymph % (Auto) 16.0 L,Brooks % (Auto) 7.9, Eos % (Auto) 0.1, Baso % (Auto) 0.4, Absolute Neuts (auto) 14.7 H, Absolute Lymphs (auto) 3.15, Nucleated RBC % 0, Differential Comment SCANNED, Diff Path Review March, Sodium 136, Potassium 3.6, Chloride 107, Carbon Dioxide 22.0, Anion Gap 7, BUN 18, Creatinine 2.45 H, Estim Creat Clear Calc 21.55, Est GFR (MDRD) Af Amer 25 L, Est GFR (MDRD) Non-Af 21 L, BUN/Creatinine Ratio 7.3 L, Glucose 123 H, Lactic Acid 2.0, Calcium 8.0 L, TotalBilirubin 0.90, AST 10 L, ALT 11 L, Alkaline Phosphatase 113, Total Protein 7.7,Albumin 2.6 L, Globulin 5.1 H, Albumin/Globulin Ratio 0.5 L, Lipase 26 08/02/23 13:50: Urine Color Yellow, Urine Clarity Cloudy, Urine pH 6.0, Ur Specific Parks 1.010, Urine Protein 100 H, Urine Glucose (UA) Normal, Urine Ketones Negative, Urine Occult Blood 150 H, Urine Nitrite Positive H, Urine Bilirubin Negative, Urine Urobilinogen Normal, Ur Leukocyte Esterase 500 H, Urine RBC 0-5 SEEN, Urine WBC >100 SEEN, Ur Squamous Epith Cells 0 SEEN, Urine Bacteria 2+, Urine Mucus 0 SEEN 08/02/23 18:19: Lactic Acid 1.6 Micro: Microbiology 08/02/23 12:55 Nasal Secretion SARS-CoV-2 Antigen (Rapid) - Final Radiography Diagnostic Testing: Radiology Impression Chest X-Ray 08/02/23 13:10 IMPRESSION: Hyperinflation. No acute abnormality is seen. Electronically Signed: Ike Colón MD at 13:32 EDT , Abdomen/Pelvis CT 08/02/23 16:12 IMPRESSION: Mild to moderate left renal pelvocaliectasis with indwelling vesical stent.. More severe obstruction of the right kidney status post stenting with swelling of the kidney and inflammatory changes in the fat may be consistent with coexisting infection. There is also thickening of the burdick of bladder and coexisting cystitis cannot be excluded. Electronically Signed: Aman Pruitt MD at 17:00 EDT , Physical Exam Const alert and no apparent distress HEENT head/scalp atraumatic and moist oral mucous membranes Resp normal respiratory effort, no retractions and no use of accessory muscles Cardio regular rate, regular rhythm, S1 normal heart sound and S2 normal heart sound GI normal to inspection, nondistended, normoactive bowel sounds, soft to palpation and non-distended GI Narrative: right CVA tenderness. Extremity normal to inspection Neuro oriented x3 and CN's II-XII intact bilaterally Assessment & Plan Assessment/Plan (1) Complicated urinary tract infection: PLAN: UTI and pyelonephritis consult Data: * UA w 500 LE, >100 WBCs * Lactic acid within normal limits * UCx pending * BCx pending * CT A/P: mild to moderate left renal pelvocaliectasis w indwelling vesicla stent. More severe obstruction of the right kidney s/p stent w swelling of the kidney and inflammatory changes in joi fat. Abx: * Cefepime and vancomycin. Deescalate as cx result return. (2) LULY (acute kidney injury): PLAN: Unclear etiology at this time Admission creatinine 2.45, baseline around 1.7 (CW CKD IIIb) On IVF Monitor PLAN: Plan Chronic conditions: * HTN: stable. resume metoprolol and amlodipine w hold parameters VTE proph: SQ heparin Charges/Coding Visit Charges Inpatient E&M: 94127 Subs Hosp L2 08/03/23 1230 <Electronically signed by Rafa Lofton DO> Cosigner Signature (if applicable): CC: ~ Signed [facility] Work Phone: 1(461) 592-144009-14-2023 Consult note Author Holly Echeverria [facility] August 02, 2023 7:40pm Note Date/Time August 02, 2023 4:36pm [facility] Medical Records Department [address] [place] [address] Pharmacokinetic/Renal -Consult 08/02/23 1636 MR#: [id number] Acct: [id number] Name: TODD DELONG MONI Rep #:[id number] : 1950 72 From: Andrei Coyne PCP: Dr. Gerardo García MD Status:ADM I N Y Location: [place] [address] Consult Antibiotic Management Pharmacy has been consulted to manage selected antiobiotic: Vancomycin Type of Intervention Type of Consult: New start Suspected Infection Suspected Infection: Other (UTI) Prior Doses of Antibiotics Prior Doses of Antibiotics Received/Current Regimen: Patient received x 1 dose of Vancomycin 1250 mg 08/02/23 @ 1521 Labs Labs: Sodium 136 mmol/L (136-145) 08/02/23 13:05 Potassium 3.6 mmol/L (3.5-5.1) 08/02/23 13:05 Chloride 107 mmol/L (98-107) 08/02/23 13:05 Carbon Dioxide 22.0 mmol/L (21.0-32.0) 08/02/23 13:05 Anion Gap 7 (5-15) 08/02/23 13:05 BUN 18 mg/dL (7-18) 08/02/23 13:05 Creatinine 2.45 mg/dL (0.55-1.02) H 08/02/23 13:05 Est GFR (MDRD) Af Amer 25 mL/min (>60) L 08/02/23 13:05 Est GFR (MDRD) Non-Af 21 mL/min (>60) L 08/02/23 13:05 BUN/Creatinine Ratio 7.3 RATIO (10-20) L 08/02/23 13:05 Glucose 123 mg/dL (74-106) H 08/02/23 13:05 Microbiology Microbiology: Microbiology 08/02/23 12:55 Nasal Secretion SARS-CoV-2 Antigen (Rapid) - Final Dosing Weight Weight used for dosin.8 kg Estimated Creatinine Clearance Estimated Creatinine Clearance: ~22 Goal Trough Goal Trough: 15-20 mcg/mL Pharmacy Plan for Drug Dosing Pharmacy Plan for Drug Dosing: Vancomycin 1250 mg IV x 1, followed by vancomycin 750 mg IV Q24H thereafter witha trough prior to the 3rd dose. Pharmacy Service will continue to monitor and adjust dosing as required. Follow-Up Labs Follow-Up Labs: Trough: Vancomycin Date/Time Labs Ordered Labs to be done on [date and time ordered]: 08/04/23 @ 1430 08/02/23 1638 <Electronically signed by Andrei tejeda> Date _ Andrei Coyne 08/02/23 1940 <Electronically signed by Holly Echeverria MD> Cosigner Signature (if applicable): Date Holly Echeverria MD CC: ~ Signed [facility] Work Phone: 1(275) 686-125309-14-2023 Progress note Author Holly Echeverria [facility] August 02, 2023 6:47pm Note Date/Time August 02, 2023 6:47pm [facility] Medical Records Department [address] [place] [address] Progress Note - Hospitalist 08/02/23 1846 MR#: [id number] Acct: [id number] Name: TODD DELONG Rep #:[id number] : 1950 72 From: Holly Echeverria MD PCP: Dr. Gerardo García MD Status:ADM I N Location: [place] [address] Hospitalist Note Reviewed patient's CT scan and discussed with her urologist Dr. Strickland, will continue current management and place consult for patient to be seen tomorrow. 08/02/231846 <Electronically signed by Holly Echeverria MD> Cosigner Signature (if applicable): CC: ~ Signed [facility] Work Phone: 1(189) 762-376009-14-2023 History and physical note Author [facility] August 02, 2023 4:18pm Note Date/Time August 02, 2023 4:02pm [facility] Medical Records Department [address] [place] [address] H&P Exam - Hospitalist 08/02/23 1549 MR#: [id number] Acct: [id number] Name: TODD DELONG Rep #:[id number] : 1950 72 From: Holly Echeverria MD PCP: Dr. Gerardo García MD Status:ADM I N Location: [place] [address] HPI - General General Date of Admission: 08/02/23 Date of Service: 08/02/23 Chief Complaint: Generalized weakness HPI Narrative TODD DELONG, is a 72 F with history of cervical cancer, CKD, bilateral hydronephrosis with chronic ureteral stents, hypertension, GERD who presented [facility] 08/02/2023 with worsening generalized malaise and somenausea with fever at home. In the ED she was noted to have a temperature of 100.7 and a white blood cell count of 19.6 when she was also tachycardic and tachypneic, her UA was suggestive of UTI and she additionally had LULY with a creatinine of 2.45 with a baseline around 1.7-2.0. Hospitalist contacted for admission. Patient evaluated with family members at bedside. She reports she has been feeling worse over the past few months but yesterday was feeling sick to her stomach and had some chills and today had a temperature of 100.6 so came to the hospital. At present feeling slightly better than she had been but stillfeels generally unwell. Denies any changes in her bowels or bladder, has not had any burning on urination but does not feel she has urinated well today. Does follow with Dr. Strickland and has ureteral stents and reports she previously was on dialysis but for the past year and a half has not required this and has stent exchanges every 4 to 5 months with her most recent in May. Not presentlyfeeling sick to her stomach. Had no other specific complaints at this time. [facility] Medical History (Updated 08/02/23 @ 16:[address] Holly Echeverria MD) Acute diarrhea LULY (acute kidney injury) Asthma Dunbar's palsy Bilateral hydronephrosis Bladder disease Blood disorder Bruising Cancer Cardiology follow-up encounter Cervical cancer Chronic renal failure, stage 4 (severe) Easy bruising Essential hypertension Former smoker Gout High anion gap metabolic acidosis History of biliary stent insertion History of cervical cancer History of Clostridium difficile infection History of COVID-19 History of irregular heartbeat History of renal disease Hx of cataract Hx of echocardiogram Hx of vertigo Hyperlipidemia Hypertension Hypokalemia Hyponatremia Leg cramps Lymphocytosis Mild intermittent asthma MRSA infection Near syncope Problem with dialysis access Sepsis Status post placement of implantable loop recorder (~03/29/20) Thyroid disease Urinary incontinence UTI (urinary tract infection) Wears dentures Home Medications albuterol sulfate 90 mcg/actuation aerosol inhaler (Ventolin HFA) 2 puff inhalation Q6H PRN Sob &/Or Wheezing 07/25/18 [History Last Taken 08/01/23] metoprolol tartrate 50 mg tablet 50 mg PO BID blood pressure 01/27/19 [History Last Taken 08/01/23] potassium chloride 20 mEq tablet,extended release(part/cryst) 20 meq PO DAILY supplement 09/01/20 [History Last Taken 08/01/23] amlodipine 2.5 mg tablet 2.5 mg PO DAILY BP #90 tabs 08/12/21 [Rx Last Taken 08/01/23] ipratropium bromide 42 mcg (0.06 %) nasal spray 2 spray intranasal DAILY 11/23/21 [History Last Taken 08/01/23] pantoprazole 40 mg tablet,delayed release 40 mg PO DAILY 03/27/23 [History Last Taken 08/01/23] Allergy/AdvReac Type Severity Reaction Status Date / Time pravastatin Allergy Severe Chest Verified 06/08/23 09:50 tightness procaine [From Novocain] Allergy Severe NEEDS Verified 06/08/23 09:50 FOLLOW-UP sulfamethoxazole Allergy Severe Shortness Verified 06/08/23 09:50 [From Bactrim] of breath trimethoprim [From Bactrim] Allergy Severe Shortness Verified 06/08/23 09:50 of breath Lxwupht-BQH-LpI Reductase Allergy Anaphylaxis Verified 06/08/23 09:50 Inhibitor clindamycin AdvReac Severe unsure of Verified 06/08/23 09:50 reaction methylprednisolone AdvReac Severe Pain in Verified 06/08/23 09:50 joints levofloxacin [From Levaquin] AdvReac UNSURE OF Verified 06/08/23 09:50 REACTION Family History Father , 32 yrs old CAD (coronary artery disease) History of coronary artery bypass surgery Mother Cancer Lung CA, Hx tobacco use. Surgical History History of arteriovenostomy for renal dialysis (~09/2021) History of cardiac catheterization (~01/08/18) History of cardiac catheterization History of cholecystectomy History of excision of mass History of hysterectomy History of loop recorder history of radium implant Hx of cystoscopy S/P arteriovenous (AV) fistula creation Social History household members: spouse and children number of children: 6 current occupational status: retired history of recent travel: No Smoking Status: Former smoker second hand exposure: No alcohol intake: never substance use type: does not use what type of physical activity do you participate in: walking saurabh/mu-ism: Non-Zoroastrianism/Independent seatbelt use: always do you feel safe at home: Yes additional social history: - Fernando PALOMO Narrative General: Did have fever HENT: Denies headache, denies stuffy nose, denies sore throat EYES: Denies changes in vision Resp: Denies cough, denies shortness of breath Cardiac: Denies chest pain GI: Denies abdominal pain, denies changes in bowel, had some nausea : Denies changes in urination Extremity: Denies swelling MSK: Feels somewhat generally weak and unwell Neuro: Denies any numbness/tingling Heme: Denies any bleeding or bruising Skin: Denies rashes Psychiatric: No complaints voiced Vital Signs Vital Signs Vital Signs: 08/02/23 12:11 08/02/23 12:22 08/02/23 13:12 Temperature 100.7 F H 97.8 F Temperature Source Temporal Temporal Pulse Rate 126 H 96 Respiratory Rate 20 H 23 H Respiratory Effort Normal Non-Labored Respiratory Pattern Normal Blood Pressure 135/82 H 145/79 H Blood Pressure Mean 99 101 Pulse Ox 94 97 Oxygen Delivery Method Room Air Room Air 08/02/23 15:22 Temperature 98 F Temperature Source Temporal Pulse Rate 89 Respiratory Rate 23 H Respiratory Effort Respiratory Pattern Blood Pressure 121/67 H Blood Pressure Mean 85 Pulse Ox 96 Oxygen Delivery Method Room Air Weight Weight: 84.8 kg Body Mass Index (BMI) 28.4 Physical Exam Narrative General: Alert, no acute distress HEENT: Atraumatic, normocephalic Eyes: Anicteric, normal conjunctiva, extraocular movements grossly intact Neck: Supple Respiratory: Clear to auscultation bilaterally, normal respiratory effort Cardiovascular: Regular rate GI: Soft, nontender, nondistended Extremities: No edema Musculoskeletal: Moving all extremities Neuro: No overt focal neurological deficits Skin: No rashes appreciated Psych: Cooperative Results Lab / Micro Data 08/02/23 13:05 08/02/23 13:05 Labs: Laboratory Results - last 24 hr 08/02/23 13:05: WBC 19.6 H, RBC 4.45, Hgb 14.0, Hct 43.5, MCV 97.8, MCH 31.5, MCHC 32.2, RDW Std Deviation 51.8 H, RDW Coeff of Dewey 14.3, Plt Count 294, MPV 10.6, Immature Gran % (Auto) 0.700, Neut % (Auto) 74.9 H, Lymph % (Auto) 16.0 L,Brooks % (Auto) 7.9, Eos % (Auto) 0.1, Baso % (Auto) 0.4, Absolute Neuts (auto) 14.7 H, Absolute Lymphs (auto) 3.15, Nucleated RBC % 0, Differential Comment SCANNED, Diff Path Review March, Sodium 136, Potassium 3.6, Chloride 107, Carbon Dioxide 22.0, Anion Gap 7, BUN 18, Creatinine 2.45 H, Estim Creat Clear Calc 21.55, Est GFR (MDRD) Af Amer 25 L, Est GFR (MDRD) Non-Af 21 L, BUN/Creatinine Ratio 7.3 L, Glucose 123 H, Lactic Acid 2.0, Calcium 8.0 L, TotalBilirubin 0.90, AST 10 L, ALT 11 L, Alkaline Phosphatase 113, Total Protein 7.7,Albumin 2.6 L, Globulin 5.1 H, Albumin/Globulin Ratio 0.5 L, Lipase 26 08/02/23 13:50: Urine Color Yellow, Urine Clarity Cloudy, Urine pH 6.0, Ur Specific Parks 1.010, Urine Protein 100 H, Urine Glucose (UA) Normal, Urine Ketones Negative, Urine Occult Blood 150 H, Urine Nitrite Positive H, Urine Bilirubin Negative, Urine Urobilinogen Normal, Ur Leukocyte Esterase 500 H, Urine RBC 0-5 SEEN, Urine WBC >100 SEEN, Ur Squamous Epith Cells 0 SEEN, Urine Bacteria 2+, Urine Mucus 0 SEEN Micro: Microbiology 08/02/23 12:55 Nasal Secretion SARS-CoV-2 Antigen (Rapid) - Final Radiology Impression Chest X-Ray 08/02/23 13:10 IMPRESSION: Hyperinflation. No acute abnormality is seen. Electronically Signed: Ike Colón MD at 13:32 EDT , Assessment & Plan Assessment/Plan (1) LULY (acute kidney injury): (2) Acute kidney injury superimposed on CKD: (3) Essential hypertension: (4) Complicated urinary tract infection: PLAN: Plan #Complicated UTI -UA suggestive of UTI and patient had white blood cell count of 19.6 and fever 100.7 with low-grade tachycardia that improved with treatment -Lactic acid within normal limits -Started on broad-spectrum antibiotics and cultures obtained -We will admit and obtain CT scan of the abdomen especially given her history ofstents and hydronephrosis with new LULY -Continue broad-spectrum antibiotics and await cultures -We will continue fluids #LULY on CKD stage IV -Previously on dialysis but has been off of this, follows with Dr. Matthews on outpatient basis -Suspect this is secondary to volume depletion as well as infection -We will obtain CT of the abdomen -Avoid nephrotoxic agents -Will give hydration -Treat underlying urinary tract infection #Hypertension -Given underlying infection holding her antihypertensives at the moment but willresume #DVT ppx: Heparin subcu Holly Echeverria MD Time spent in the patient's overall evaluation,decision-making process, review of diagnostic data, adjustment of management, discussion with other providers, nursing nursing and ancillary staff involved in patient's care documentation, 76minutes Charges/Coding Visit Charges Inpatient E&M: 66433 Init Hosp L3 08/02/23 1618 <Electronically signed by Holly Echeverria MD> Cosigner Signature (if applicable): CC: Dr. Holly Echeverria MD; Dr. Gerardo García MD~ Signed [facility] Work Phone: [phone]) 162-910909-14-2023 Discharge summary Author Brian Mckee [facility] August 02, 2023 3:01pm Note Date/Time August 02, 2023 12:17pm [facility] Medical Records Department [address] [place] [id number] Emergency Department Summary 08/02/23 MR#: [id number] Acct: [id number] Name: TODD DELONG Rep #:[id number] : 1950 72 From: Brian Avalos PCP: Dr. Gerardo García MD Status:REG E R Location: ED HPI History of Present Illness Chief Complaint: Fever PFSH [facility] Medical History Acute diarrhea LULY (acute kidney injury) Asthma Dunbar's palsy Bilateral hydronephrosis Bladder disease Blood disorder Bruising Cancer Cardiology follow-up encounter Cervical cancer Chronic renal failure, stage 4 (severe) Easy bruising Essential hypertension Former smoker Gout High anion gap metabolic acidosis History of biliary stent insertion History of cervical cancer History of Clostridium difficile infection History of COVID-19 History of irregular heartbeat History of renal disease Hx of cataract Hx of echocardiogram Hx of vertigo Hyperlipidemia Hypertension Hypokalemia Hyponatremia Leg cramps Lymphocytosis Mild intermittent asthma MRSA infection Near syncope Problem with dialysis access Sepsis Status post placement of implantable loop recorder (~03/29/20) Thyroid disease Urinary incontinence UTI (urinary tract infection) Wears dentures Home Medications albuterol sulfate 90 mcg/actuation aerosol inhaler (Ventolin HFA) 2 puff inhalation Q6H PRN Sob &/Or Wheezing 07/25/18 [History Last Taken 08/01/23] metoprolol tartrate 50 mg tablet 50 mg PO BID blood pressure 01/27/19 [History Last Taken 08/01/23] potassium chloride 20 mEq tablet,extended release(part/cryst) 20 meq PO DAILY supplement 09/01/20 [History Last Taken 08/01/23] amlodipine 2.5 mg tablet 2.5 mg PO DAILY BP #90 tabs 08/12/21 [Rx Last Taken 08/01/23] ipratropium bromide 42 mcg (0.06 %) nasal spray 2 spray intranasal DAILY 11/23/21 [History Last Taken 08/01/23] pantoprazole 40 mg tablet,delayed release 40 mg PO DAILY 03/27/23 [History Last Taken 08/01/23] Allergy/AdvReac Type Severity Reaction Status Date / Time pravastatin Allergy Severe Chest Verified 06/08/23 09:50 tightness procaine [From Novocain] Allergy Severe NEEDS Verified 06/08/23 09:50 FOLLOW-UP sulfamethoxazole Allergy Severe Shortness Verified 06/08/23 09:50 [From Bactrim] of breath trimethoprim [From Bactrim] Allergy Severe Shortness Verified 06/08/23 09:50 of breath [id number]-[id number]-UjB Reductase Allergy Anaphylaxis Verified 06/08/23 09:50 Inhibitor clindamycin AdvReac Severe unsure of Verified 06/08/23 09:50 reaction methylprednisolone AdvReac Severe Pain in Verified 06/08/23 09:50 joints levofloxacin [From Levaquin] AdvReac UNSURE OF Verified 06/08/23 09:50 REACTION Family History Father , 32 yrs old CAD (coronary artery disease) History of coronary artery bypass surgery Mother Cancer Lung CA, Hx tobacco use. Surgical History History of arteriovenostomy for renal dialysis (~09/2021) History of cardiac catheterization (~01/08/18) History of cardiac catheterization History of cholecystectomy History of excision of mass History of hysterectomy History of loop recorder history of radium implant Hx of cystoscopy S/P arteriovenous (AV) fistula creation Social History household members: spouse and children number of children: 6 current occupational status: retired history of recent travel: No Smoking Status: Former smoker second hand exposure: No alcohol intake: never substance use type: does not use what type of physical activity do you participate in: walking saurabh/mu-ism: Non-Zoroastrianism/Independent seatbelt use: always do you feel safe at home: Yes additional social history: - Fernando EXAM Physical Exam Const Vital Signs: 08/02/23 12:11 08/02/23 12:22 Temperature 100.7 F H Temperature Source Temporal Pulse Rate 126 H Respiratory Rate 20 H Respiratory Effort Normal Non-Labored Respiratory Pattern Normal Blood Pressure 135/82 H Blood Pressure Mean 99 Pulse Ox 94 Oxygen Delivery Method Room Air MDM MDM MDM Narrative Medical decision making narrative: HISTORY OF PRESENT ILLNESS: 72-year-old female here for fever weakness and nausea. States she had history of sepsis secondary to UTI in the past this feels similar. She further states this began this morning. Notes 1 episode of nonbloody nonbilious vomitus. Denies chest pain shortness of breath cough, sick contacts. No abdominal pain. No urinary complaints. REVIEW OF SYSTEMS: Pertinent positives: Fever, weakness and nausea Pertinent negatives: Chest pain, shortness of breath, cough PHYSICAL EXAM: Nursing triage notes reviewed, Vital signs reviewed Constitutional: please see mdm HENT: MMM Eyes: Pupils equal round and reactive to light, Extraocular muscles intact Neck: No stridor, no JVD, full neck ROM Lungs: Clear to auscultation, No wheezing or rales. No increased work of breathing, no conversational dyspnea, no accessory muscle use, no nasal flaring. No respiratory distress noted Heart: Regular rate and rhythm, No murmurs, No rubs and No gallops, 2+ distal pulses (radial, femoral, posterior tibial) in all extremities Abdomen: Soft, there is no tenderness, rigidity, rebound or guarding, no obviousperitoneal signs, no palpable pulsatile abdominal masses, no auscultated abdominal bruit : No CVAT Extremities: No edema Neuro: No focal neurological deficits, cranial nerves II through XII intact, 5/5strength in all extremities. Intact sensation to light touch in all extremities,2+ reflexes bilateral patella tendons. Normal gait. No ataxia. Skin: No rash or lesions noted MEDICAL DECISION MAKING: Chief Complaint: Fever External records reviewed: Admitted in July 2022 for Pseudomonas UTI Factors affecting care: hypertension, CKD stage IV, history of cervical CA Social determinants of health: none History obtained from others: Patient's family Consults: none ALL IMAGES (IF OBTAINED) HAVE BEEN PERSONALLY REVIEWED AND INTERPRETED BY MYSELF. EKG with sinus tachycardia, normal axis, normal intervals, no STEMI CBC with marked leukocytosis suggestive of systemic inflammation, no anemia or thrombocytopenia noted Lipase is wnl indicating no pancreatic inflammation. BMP with LULY on CKD, no anion gap to suggest endorgan hypoperfusion, no significant electrolyte abnormalities LFTs without evidence of hepatobiliary obstruction COVID is negative MDM Narrative: Patient was initially febrile, tachycardic, tachypneic otherwise hemodynamicallystable and nontoxic-appearing I considered the following differential diagnosis: Bacterial infection, viral infection I obtained a broad lab and imaging work-up to further elucidate the etiology of the patient complaints including blood cultures, urine culture, UA, chest x-ray. I treated the patient with IV fluid bolus, gave Toradol for antipyretic effect. Labs evidence of systemic inflammation, UTI. Vital signs improved after fluids and antipyretics. Given the patient's advanced age history of sepsis and signs of sepsis today as well as UTI and endorgan dysfunction in the form of LULY on CKD she will need admission for IV antibiotics to await cultures. The patient and/or family, caregivers express understanding. The patient and/orfamily, caregivers agrees with the plan. Shared decision making: I will have a discussion with the patient and or visitors regarding risk/benefits of further testing or admission. They will be made aware of of the risk/benefits inherent in this decision they will be given the opportunity to voice understanding. Total critical care time today provided was at least 0 minutes. This excludes separately billable procedures. Critical care time (if documented) is secondary to the patient having high probability of clinically significant/life threatening deterioration in the patient's condition which required my urgent intervention. Impression: 1. Fever 2. Tachycardia 3. Nausea and vomiting 4. Leukocytosis 5. LULY on CKD 6. UTI Dispo: admit to [facility] Lab Data Attestation: I reviewed the patient's lab results. Labs: Laboratory Results - last 24 hr 08/02/23 13:05 WBC 19.6 H RBC 4.45 Hgb 14.0 Hct 43.5 MCV 97.8 MCH 31.5 MCHC 32.2 RDW Std Deviation 51.8 H RDW Coeff of Dewey 14.3 Plt Count 294 MPV 10.6 Immature Gran % (Auto) 0.700 Neut % (Auto) 74.9 H Lymph % (Auto) 16.0 L Brooks % (Auto) 7.9 Eos % (Auto) 0.1 Baso % (Auto) 0.4 Absolute Neuts (auto) 14.7 H Absolute Lymphs (auto) 3.15 Nucleated RBC % 0 Radiography Chest X-Ray - ED: Read by ED Physician Diagnostic Testing: I have personally reviewed the patient's chest x-ray. Chest x-ray is unremarkable for pulmonary edema, pneumothorax, pneumonia or focal cardiopulmonary abnormality. Discharge Plan Triage Chief Complaint: Fever Other Complaint: Nausea/Vomiting Weakness ED Provider: Brian Mckee Dx/Rx/DC Orders Prescriptions: No Action albuterol sulfate [Ventolin HFA] 90 mcg/actuation HFA aerosol inhaler 2 puff INHALATION Q6H PRN (Reason: Sob &/Or Wheezing) pantoprazole 40 mg tablet,delayed release (DR/EC) 40 mg PO DAILY Hold Instructions: Order Completed metoprolol tartrate 50 MG tablet 50 mg PO BID potassium chloride 20 MEQ tablet,ER particles/crystals 20 meq PO DAILY ipratropium bromide 42 mcg (0.06 %) spray,non-aerosol 2 spray INTRANASAL DAILY amlodipine 2.5 mg tablet 2.5 mg PO DAILY Qty: 90 3RF Primary Care Provider: Gerardo García Chi Referrals: Gerardo García Chi, MD [Primary Care Provider] - What to do if you have Problems For any increased pain, shortness of breath, bleeding, nausea or vomiting, chestpain, or any unexpected problems, contact your Primary Care Provider. Call [facility] ([phone]) or report to the closest Emergency Room. Call 911 if necessary. 08/02/23 1501 <Electronically signed by Brian Mckee DO> Cosigner Signature (if applicable): CC: Dr. Gerardo García MD ~ Signed [facility] Work Phone: 1(479) 647-529201-11-2022 Chief complaint+Reason for visit Narrative * Chief Complaint CHILLS remote ILR f/u covid-19 LT BRACHIAL TO BASILIC UPPER AV FISTULA CREATION LT BRACHIAL TO BASILIC UPPER AV FISTULA CREATION WOUND CHECK POST OP FISTULA CREATION 11/29 RC 3 WK F/U FISTULA BILATERAL STENT CHANGE 3 WK F/U FISTULA FECAL IMPACTION 6 WEEK F/U FISTULA Reason for Visit Chronic renal failur e, stage 4 (severe) Status post placement of implantable loop recorder Near syncope Chronic renal failure, stage 4 (severe) Chronic renal failure, stage 4 (severe) Chronic renal failure, stage 4 (severe) Chronic renal failure, stage 4 (severe) Chronic renal failure, stage 4 (severe) [facility] Work Phone: [phone]) 752-797505-01-2020 Evaluation note* Diagnosis Onset Date Resolution Status Chronic renal failure, stage 4 (severe) chronic Status post placement of implantable loop recorder March chronic Near syncope resolved Chronic renal failure, stage 4 (severe) chronic Chronic renal failure, stage 4 (severe) chronic Chronic renal failure, stage 4 (severe) chronic Chronic renal failure, stage 4 (severe) chronic Chronic renal failure, stage 4 (severe) chronic [facility] Work Phone: [phone]) 901-311010-12-2015 History of Past illness Narrative* Problem Noted Date Diagnosed Date Resolved Date Pseudophakia, left eye 08/30/201509/27 Lens replaced by other means 08/12/2015 09/27/2015 documented as of this encounter (statuses as of 10/23/2023) [facility]10-12-2015 History of Past illness Narrative* Problem Noted Date Diagnosed Date Resolved Date Pseudophakia, left eye 08/30/201509/27 Lens replaced by other means 08/12/2015 09/27/2015 documented as of this encounter (statuses as of 12/21/2023) [facility]2015 History of Past illness Narrative* Problem Noted Date Diagnosed Date Resolved Date Pseudophakia, left eye 08/30/201509/27 Lens replaced by other means 08/12/2015 09/27/2015 documented as of this encounter (statuses as of 12/21/2023) [address] History of Past illness Narrative* Problem Noted Date Diagnosed Date Resolved Date Pseudophakia, left eye 08/30/201509/27 Lens replaced by other means 08/12/2015 09/27/2015 documented as of this encounter (statuses as of 12/24/2023) [address]2015 History of Past illness Narrative* Problem Noted Date Diagnosed Date Resolved Date Pseudophakia, left eye 08/30/201509/27 Lens replaced by other means 08/12/2015 09/27/2015 documented as of this encounter (statuses as of 12/25/2023) [address]12-2015 History of Past illness Narrative* Problem Noted Date Diagnosed Date Resolved Date Pseudophakia, left eye 08/30/201509/27 Lens replaced by other means 08/12/2015 09/27/2015 documented as of this encounter (statuses as of 12/25/2023) [address]2015 History of Past illness Narrative* Problem Noted Date Diagnosed Date Resolved Date Pseudophakia, left eye 08/30/201509/27 Lens replaced by other means 08/12/2015 09/27/2015 documented as of this encounter (statuses as of 12/28/2023) [address]12-2015 History of Past illness Narrative* Problem Noted Date Diagnosed Date Resolved Date Pseudophakia, left eye 08/30/201509/27 Lens replaced by other means 08/12/2015 09/27/2015 documented as of this encounter (statuses as of 01/02/2024) [address]12-2015 History of Past illness Narrative* Problem Noted Date Diagnosed Date Resolved Date Pseudophakia, left eye 08/30/201509/27 Lens replaced by other means 08/12/2015 09/27/2015 documented as of this encounter (statuses as of 01/03/2024) [address]2015 History of Past illness Narrative* Problem Noted Date Diagnosed Date Resolved Date Pseudophakia, left eye 08/30/201509/27 Lens replaced by other means 08/12/2015 09/27/2015 documented as of this encounter (statuses as of 01/10/2024) [facility] History of Past illness Narrative* Problem Noted Date Diagnosed Date Resolved Date Pseudophakia, left eye 08/30/201509/27 Lens replaced by other means 08/12/2015 09/27/2015 documented as of this encounter (statuses as of 02/09/2024) [facility] History of Past illness Narrative* Problem Noted Date Diagnosed Date Resolved Date Pseudophakia, left eye 08/30/201509/27 Lens replaced by other means 08/12/2015 09/27/2015 documented as of this encounter (statuses as of 02/11/2024) [facility] History of Past illness Narrative* Problem Noted Date Diagnosed Date Resolved Date Pseudophakia, left eye 08/30/201509/27 Lens replaced by other means 08/12/2015 09/27/2015 documented as of this encounter (statuses as of 02/19/2024) [facility] History of Past illness Narrative* Problem Noted Date Diagnosed Date Resolved Date Pseudophakia, left eye 08/30/201509/27 Lens replaced by other means 08/12/2015 09/27/2015 documented as of this encounter (statuses as of 03/04/2024) [facility] Diagnosis Onset Date Resolution Status Chronic renal failure, stage 4 (severe) chronic Chronic renal failure, stage 4 (severe) chronic Chronic renal failure, stage 4 (severe) chronic Chronic renal failure, stage 4 (severe) chronic Chronic renal failure, stage 4 (severe) [facility] Work Phone: Evaluation note* Diagnosis Onset Date Resolution Status Chronic renal failure, stage 4 (severe) chronic Chronic renal failure, stage 4 (severe) chronic Chronic renal failure, stage 4 (severe) [facility] Work Phone: Evaluation note* Diagnosis Onset Date Resolution Status Chronic renal failure, stage 4 (severe) chronic Abscess of right thigh acute Lymphocytosis [facility] Work Phone: Evaluation note* Diagnosis Onset Date Resolution Status Chronic renal failure, stage 4 (severe) chronic Abscess of right thigh acute Lymphocytosis chronic Acute UTI acute Sepsis acute Tachycardia acute Chronic renal insufficiency [facility] Work Phone: Evaluation note* Diagnosis Onset Date Resolution Status Lymphocytosis chronic Acute UTI acute Sepsis acute Chronic renal insufficiency resolved Tachycardia resolved Chronic renal failure, stage 4 (severe) [facility] Work Phone: Evaluation note* Diagnosis Onset Date Resolution Status Acute UTI acute Sepsis acute Chronic renal insufficiency resolved Tachycardia resolved Chronic renal failure, stage 4 (severe) [facility] Work Phone: Evaluation note* Diagnosis Onset Date Resolution Status Chronic renal failure, stage 4 (severe) [facility] Work Phone: Evaluation note* Diagnosis Onset Date Resolution Status Chronic renal failure, stage 4 (severe) chronic Abscess of left knee acute Chronic renal failure, stage 4 (severe) [facility] Work Phone: Evaluation note* Diagnosis Onset Date Resolution Status Abscess of left knee acute Chronic renal failure, stage 4 (severe) [facility] Work Phone: Evaluation note* Diagnosis Onset Date Resolution Status Chronic renal failure, stage 4 (severe) chronic Abscess of forearm acute [facility] Work Phone: Evaluation note* Diagnosis Onset Date Resolution Status Abscess of forearm acute [facility] Work Phone: Evaluation note* Diagnosis Onset Date Resolution Status Abscess of forearm acute LULY (acute kidney injury) ac [place] Complicated urinary tract infection acute Hydronephrosis acute Acute kidney injury superimposed on CKD chronic Essential hypertension [facility] Work Phone: Evaluation note* Diagnosis Onset Date Resolution Status Complicated urinary tract infection acute Hydronephrosis acute Acute kidney injury superimposed on CKD chronic Essential hypertension [facility] Work Phone: Evaluation note* Diagnosis Onset Date Resolution Status Complicated urinary tract infection acute Hydronephrosis acute Acute kidney injury superimposed on CKD chronic Essential hypertension [facility] Acute dehydration acute Diarrhea acute Leukocytosis acute Pyuria acute Acute kidney injury superimp osed on chronic kidney disease [facility] Work Phone: Evaluation note* Diagnosis Onset Date Resolution Status Complicated urinary tract infection acute Hydronephrosis acute Acute kidney injury superimposed on CKD chronic Essential hypertension chron ic Acute dehydration acute Acute UTI acute Complicated urinary tract infection acute Diarrhea acute Leukocytosis acute Pyuria acute Acute kidney injury superimp osed on chronic kidney disease chronic [facility] Work Phone: Evaluation note* Diagnosis Onset Date Resolution Status Hydronephrosis acute Acute kidney injury superimposed on CKD chronic Essential hypertension chron ic Complicated urinary tract infection resolved Acute dehydration resolved Acute kidney injury superimp osed on chronic kidney disease resolved Acute UTI resolved Complicated urinary tract infection resolved Diarrhea resolved Leukocytosis resolved Pyuria resolved [facility] Work Phone: Evaluation note* Diagnosis Onset Date Resolution Status Hydronephrosis acute Acute kidney injury superimposed on CKD chronic Essential hypertension chron ic Complicated urinary tract infection resolved Acute dehydration resolved Acute kidney injury superimp osed on chronic kidney disease resolved Acute UTI resolved Complicated urinary tract infection resolved Diarrhea resolved Leukocytosis resolved Pyuria resolved Acute UTI acute History of sepsis acute Leukocytosis acute Sepsis acute Chronic kidney disease [facility] Work Phone: Evaluation note* Diagnosis LULY (acute kidney injury) (HCC)- Primary Acute kidney failure, unspecified Bilateral hydronephrosis Hydronephrosis Recurrent UTI Urinary tract infection, site not specified Hydronephrosis, unspecified hydronephrosis [facility] Onset Date Resolution Status Acute UTI resolved [facility] Work Phone: Evaluation note* Diagnosis Bilateral hydronephrosis- Primary [facility]onephrosis [facility] Onset Date Resolution Status Acute UTI resolved Bilateral hydronephrosis acu te Complicated urinary tract infection acute Leukocytosis acute Sinus tachycardia acute Chronic renal failure, stage 4 (severe) chronic Essential hypertension chron ic Hyperlipidemia [facility] Work Phone: Evaluation note* Diagnosis Onset Date Resolution Status Acute UTI resolved Bilateral hydronephrosis acu te Complicated urinary tract infection acute Hypokalemia acute Leukocytosis acute Pyelonephritis of right kidney acute Sinus tachycardia acute UTI (urinary tract infection) acute Chronic renal failure, stage 4 (severe) chronic Essential hypertension chron ic Hyperlipidemia [facility] Work Phone: Evaluation note* Diagnosis Bilateral hydronephrosis- Primary Hydronephrosis LULY (acute kidney injury) (HCC) Acute kidney failure, unspecified Hydronephrosis, unspecified hydronephrosis type documented in this encounter [facility] note* Diagnosis Hydronephrosis of left kidney- Primary Hydronephrosis Hydronephrosis, unspecified hydronephrosis type Hydronephrosis, unspecified hydronephrosis type documented in this encounter [facility] note* Diagnosis Onset Date Resolution Status Complicated urinary tract infection acute UTI (urinary tract infection) acute Hypokalemia resolved Leukocytosis resolved Sinus tachycardia resolved Chronic kidney disease, stage IV (severe) [facility] Work Phone: Evaluation note* Diagnosis Other hydronephrosis- Primary Hydronephrosis, unspecified hydronephrosis type documented in this encounter [facility] note* Diagnosis Bilateral hydronephrosis- Primary Hydronephrosis LULY (acute kidney injury) (HCC) Acute kidney failure, unspecified Recurrent UTI Urinary tract infection, site not specified Hydronephrosis, unspecified hydronephrosis type documented in this encounter [facility] note* Diagnosis Hydronephrosis with ureteral stricture, not elsewhere classified- Primary Other hydronephrosis documented in this encounter [facility] note* Diagnosis Other hydronephrosis- Primary Other hydronephrosis documented in this encounter [facility] note* Diagnosis Hydronephrosis of left kidney- Primary Hydronephrosis Pyelonephritis Pyelonephritis, unspecified Hydronephrosis with ureteral stricture, 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) Urinary complications Pyelonephritis Pyelonephritis, unspecified Nephrostomy tube displaced (HCC) Urinary complications Hydronephrosis, unspecified hydronephrosis type [N13.30]- Primary Hydronephrosis, unspecified hydronephrosis type documented in this encounter [facility] note* Diagnosis Hydronephrosis of left kidney- Primary Hydronephrosis Pyelonephritis Pyelonephritis, unspecified Hydronephrosis with ureteral stricture, 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) Urinary complications Pyelonephritis Pyelonephritis, unspecified Nephrostomy tube displaced (HCC) Urinary complications Sepsis secondary to UTI (HCC) (HCC)- Primary Urinary tract infection, site not specified Hydronephrosis, unspecified hydronephrosis type documented in this encounter [facility] note* Diagnosis Hydronephrosis of left kidney- Primary Hydronephrosis Pyelonephritis Pyelonephritis, unspecified Hydronephrosis with ureteral stricture, 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) Urinary complications Pyelonephritis Pyelonephritis, unspecified Nephrostomy tube displaced (HCC) Urinary complications Sepsis secondary to UTI (HCC) (HCC)- Primary Urinary tract infection, site not specified Hydronephrosis, unspecified hydronephrosis type documented in this encounter [facility] note* Diagnosis Hydronephrosis of left kidney- Primary Hydronephrosis Pyelonephritis Pyelonephritis, unspecified Hydronephrosis with ureteral stricture, 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) Urinary complications Pyelonephritis Pyelonephritis, unspecified Nephrostomy tube displaced (HCC) Urinary complications Nephrostomy tube bleed (HCC)- Primary Urinary complications Hydronephrosis, unspecified hydronephrosis type documented in this encounter [facility] note* Diagnosis Hydronephrosis of left kidney- Primary Hydronephrosis Pyelonephritis Pyelonephritis, unspecified Hydronephrosis with ureteral stricture, 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) Urinary complications Pyelonephritis Pyelonephritis, unspecified Nephrostomy tube displaced (HCC) Urinary complications Nephrostomy tube bleed (HCC) Urinary complications Hydronephrosis, unspecified hydronephrosis type documented in this encounter [facility] noteNo assessment information [facility]* Diagnosis Hydronephrosis of left kidney- Primary Hydronephrosis Pyelonephritis Pyelonephritis, unspecified Hydronephrosis with ureteral stricture, not elsewhere classified Nephrostomy tube displaced Urinary complications Pyelonephritis Pyelonephritis, unspecified Nephrostomy tube displaced Urinary complications Hydronephrosis, unspecified hydronephrosis type- Primary Hydronephrosis, unspecified hydronephrosis type Hydronephrosis, unspecified hydronephrosis type documented in this encounter [facility] Discharge instructions Additional Instructions Implant Used[facility] Plan of care note* Visit Details Visit Type -SN ROUTINE Discipline -Residential Problems Problem Description Start Date Status Goals Interve ntions Sepsis Disciplines: Skilled Services 11/26/2023 Active 1 goal linked to scheduled/documen daniel intervention 1 goal intervention scheduled/document ed in this visit Physician Specific Parameters Disciplines: Skilled Services 11/26/2023 Active 1 goal linked to scheduled/documen daniel intervention 1 goal intervention scheduled/document ed in this visit Risk for Falls Disciplines: Skilled Services 11/26/2023 Active 1 goal linked to scheduled/documen daniel intervention 1 goal intervention scheduled/document ed in this visit Pain Disciplines: Skilled Services 11/26/2023 Active 1 goal linked to scheduled/documen daniel intervention 1 goal intervention scheduled/document ed in this visit Discharge Disciplines: Skilled Services 11/26/2023 Active 1 goal linked to scheduled/documen daniel intervention 2 goal interventions scheduled/document ed in this visit SN Learning Assessment Disciplines: SN 11/26/2023 Active 1 goal linked to scheduled/documen daniel intervention 1 goal intervention scheduled/document ed in this visit SN Genitourinary disease process Disciplines: SN 11/26/2023 Active 1 goal linked to scheduled/documen daniel intervention 2 goal interventions scheduled/document ed in this visit SN Integumentary/Wound s Disciplines: SN 11/26/2023 Active 1 goal linked to scheduled/documen daniel intervention 2 goal interventions scheduled/document ed in this visit Goals Goal Associated Problem Outcome Goal Met? Visit Notes Patient/caregiver will be able to identify and report symptoms of sepsis Description: Patient/caregiver will be able to identify signs/symptoms of sepsis infection and will verbalize actions to take if suspected by 01/24/24. Sepsis No Patient to maintain parameters within physician-specified ranges throughout certification period Physician Specific Parameters No Manage Risk for falls Description: Patient/caregiver will verbalize knowledge of individualized fall prevention strategies by 01/24/24. Risk for Falls No Manage Pain Description: Patient/caregiver will verbalize knowledge and understanding of appropriate techniques to control pain, including non-pharmacological techniques. Patient will verbalize or demonstrate an acceptable level of pain as evidenced by a pain score of 0/10 and improvement in ability to perform activities of daily living to be achieved by 01/24/24. Pain No Manage discharge planning Description: Patient/caregiver will verbalize understanding of ongoing discharge plan provided related to disease management, arrangements for outpatient and/or community services, obtaining medications, supplies, and DME, as needed throughout certification period. Discharge No Demonstrate understanding of education Description: Patient and/or caregiver will verbalize understanding of educational instruction provided throughout certification period. SN Learning Assessment No Patient/Caregiver will verbalize understanding and demonstrate improved management of genitourinary disease/condition. Description: Patient/Caregiver will state understanding of genitourinary disease/condition and be able to teach back management strategies by 01/10/24 SN Genitourinary disease process No Patient/Caregiver will have improved healing and be free of signs and symptoms of complications Description: Patient/caregiver will verbalize management strategies to promote wound healing & prevent complications as evidenced by improved healing & no complications by 01/10/24. SN Integumentary/Wounds No Interventions Intervention Associated Problem/Goal Status Variance Visit Notes Risk of Sepsis Description: Patient is at risk for sepsis. Monitor closely for s/s of sepsis. Problem:Sepsis Goal:Patient/caregiver will be able to identify and report symptoms of sepsis Completed SPO2 Description: Notify Dr. Murrell if pulse ox is <92% at rest. Problem:Physician Specific Parameters Goal:Patient to maintain parameters within physician-specified ranges throughout certification period Completed Instruct on individual fall risk factors and strategies to prevent falls and injuries caused by falls. Problem:Risk for Falls Goal:Manage Risk for falls Completed SN: Patient and Caregiver instructed on Eliminating Environmental Hazards: Keep pathways clear, Keep pets out of pathways, Remove unsafe rugs, Move furniture from pathways and Keep rooms and walkways well lit Managing Cognitive Impairment/Depression : Recommended use of visual cues/reminders for safety Instruct on pain and instruct on strategies to control pain Problem:Pain Goal:Manage Pain Completed pt denies c/o pain Instruct on ongoing discharge plan Problem:Discharge Goal:Manage discharge planning Completed Ongoing Discharge plan: Discharge plan discussed with patient including frequency and duration for home SN and plan for transition to: live independently at home without ongoing services. Instruct on importance of follow-up appts and continued monitoring with medical provider &/or chronic care clinic Problem:Discharge Goal:Manage discharge planning Completed Education provided on importance of compliance with follow-up appointment(s). Recommendations: None Instruct and educate on knowledge deficits Problem:SN Learning Assessment Goal:Demonstrate understanding of education Completed patient verbalize and/or demonstrate understanding of nursing education completed today. Education methods include: verbal cues and teach back. Further education required to improve knowledge and compliance with drain care management, fall prevention/home safety strategies, genitourinary care management, incision/wound care management, medication management, nutrition and pain management. Nephrostomy Tubes: Instruct patient/caregiver on nephrostomy tube care/management Description: Nephrostomy tube location: Bilateral Problem:SN Genitourinary disease process Goal:Patient/Caregiver will verbalize understanding and demonstrate improved management of genitourinary disease/condition. Completed Patient instructed on site care, management of drainage system and s/s of infection. UTI- Instruct Patient/Caregiver on signs and symptoms of urinary tract infection, treatment measures, measures to prevent reoccurence, and when to notify physician of symptoms Problem:SN Genitourinary disease process Goal:Patient/Caregiver will verbalize understanding and demonstrate improved management of genitourinary disease/condition. Completed patient instructed on signs and symptoms of UTI and when to notify physician. Drain Care: Perform drain care Description: Drain care as follows: Per Dr. Antonio: The nephrostomy tubes do not need flushed routinely. Change the dressing prn. Cleanse with NS, pat dry, dress with split gauze and tegaderm. Problem:SN Integumentary/Wounds Goal:Patient/Caregiver will have improved healing and be free of signs and symptoms of complications Completed patient instructed on drain care as ordered by Physician. Drain Care: Instruct patient/caregiver to perform drain care Problem:SN Integumentary/Wounds Goal:Patient/Caregiver will have improved healing and be free of signs and symptoms of complications Completed patient instructed on drain care as ordered by Physician. documented in this encounter [facility] home Plan of care note* Visit Details Visit Type -SN ROUTINE Discipline -Residential Problems Problem Description Start Date Status Goals Interve ntions Sepsis Disciplines: Skilled Services 11/26/2023 Active 1 goal linked to scheduled/documen daniel intervention 1 goal intervention scheduled/document ed in this visit Physician Specific Parameters Disciplines: Skilled Services 11/26/2023 Active 1 goal linked to scheduled/documen daniel intervention 1 goal intervention scheduled/document ed in this visit Risk for Falls Disciplines: Skilled Services 11/26/2023 Active 1 goal linked to scheduled/documen daniel intervention 1 goal intervention scheduled/document ed in this visit Pain Disciplines: Skilled Services 11/26/2023 Active 1 goal linked to scheduled/documen daniel intervention 1 goal intervention scheduled/document ed in this visit Discharge Disciplines: Skilled Services 11/26/2023 Active 1 goal linked to scheduled/documen daniel intervention 1 goal intervention scheduled/document ed in this visit SN Learning Assessment Disciplines: SN 11/26/2023 Active 1 goal linked to scheduled/documen daniel intervention 1 goal intervention scheduled/document ed in this visit SN Genitourinary disease process Disciplines: SN 11/26/2023 Active 1 goal linked to scheduled/documen daniel intervention 2 goal interventions scheduled/document ed in this visit SN Integumentary/Wound s Disciplines: SN 11/26/2023 Active 1 goal linked to scheduled/documen daniel intervention 2 goal interventions scheduled/document ed in this visit Goals Goal Associated Problem Outcome Goal Met? Visit Notes Patient/caregiver will be able to identify and report symptoms of sepsis Description: Patient/caregiver will be able to identify signs/symptoms of sepsis infection and will verbalize actions to take if suspected by 01/24/24. Sepsis No Patient to maintain parameters within physician-specified ranges throughout certification period Physician Specific Parameters No Manage Risk for falls Description: Patient/caregiver will verbalize knowledge of individualized fall prevention strategies by 01/24/24. Risk for Falls No Manage Pain Description: Patient/caregiver will verbalize knowledge and understanding of appropriate techniques to control pain, including non-pharmacological techniques. Patient will verbalize or demonstrate an acceptable level of pain as evidenced by a pain score of 0/10 and improvement in ability to perform activities of daily living to be achieved by 01/24/24. Pain No Manage discharge planning Description: Patient/caregiver will verbalize understanding of ongoing discharge plan provided related to disease management, arrangements for outpatient and/or community services, obtaining medications, supplies, and DME, as needed throughout certification period. Discharge No Demonstrate understanding of education Description: Patient and/or caregiver will verbalize understanding of educational instruction provided throughout certification period. SN Learning Assessment No Patient/Caregiver will verbalize understanding and demonstrate improved management of genitourinary disease/condition. Description: Patient/Caregiver will state understanding of genitourinary disease/condition and be able to teach back management strategies by 01/10/24 SN Genitourinary disease process No Patient/Caregiver will have improved healing and be free of signs and symptoms of complications Description: Patient/caregiver will verbalize management strategies to promote wound healing & prevent complications as evidenced by improved healing & no complications by 01/10/24. SN Integumentary/Wounds No Interventions Intervention Associated Problem/Goal Status Variance Visit Notes Risk of Sepsis Description: Patient is at risk for sepsis. Monitor closely for s/s of sepsis. Problem:Sepsis Goal:Patient/caregive r will be able to identify and report symptoms of sepsis Completed SPO2 Description: Notify Dr. Murrell if pulse ox is <92% at rest. Problem:Physician Specific Parameters Goal:Patient to maintain parameters within physician-specified ranges throughout certification period Completed Instruct on individual fall risk factors and strategies to prevent falls and injuries caused by falls. Problem:Risk for Falls Goal:Manage Risk for falls Completed SN: Patient instructed on Eliminating Environmental Hazards: Keep pathways clear, Keep pets out of pathways, Remove unsafe rugs and Move furniture from pathways Instruct on pain and instruct on strategies to control pain Problem:Pain Goal:Manage Pain Completed patient instructed on techniques to control pain including Pharmacological measures. Instruct on ongoing discharge plan Problem:Discharge Goal:Manage discharge planning Completed Ongoing Discharge plan: Discharge plan discussed with caregiver including frequency and duration for home SN and plan for transition to: live independently at home without ongoing services. Instruct and educate on knowledge deficits Problem:SN Learning Assessment Goal:Demonstrate understanding of education Completed patient verbalize and/or demonstrate understanding of nursing education completed today. Education methods include: verbal cues and teach back. Further education required to improve knowledge and compliance with fall prevention/home safety strategies and genitourinary care management. Nephrostomy Tubes: Instruct patient/caregiver on nephrostomy tube care/management Description: Nephrostomy tube location: Bilateral Problem:SN Genitourinary disease process Goal:Patient/Caregive r will verbalize understanding and demonstrate improved management of genitourinary disease/condition. Completed Patient instructed on flushing. UTI- Instruct Patient/Caregiver on signs and symptoms of urinary tract infection, treatment measures, measures to prevent reoccurence, and when to notify physician of symptoms Problem:SN Genitourinary disease process Goal:Patient/Caregive r will verbalize understanding and demonstrate improved management of genitourinary disease/condition. Completed patient instructed on signs and symptoms of UTI and when to notify physician. Drain Care: Perform drain care Description: Drain care as follows: Per Dr. Antonio: The nephrostomy tubes do not need flushed routinely. Change the dressing prn. Cleanse with NS, pat dry, dress with split gauze and tegaderm. Problem:SN Integumentary/Wounds Goal:Patient/Caregive r will have improved healing and be free of signs and symptoms of complications Completed patient instructed on drain care as ordered by Physician. Drain Care: Instruct patient/caregiver to perform drain care Problem:SN Integumentary/Wounds Goal:Patient/Caregive r will have improved healing and be free of signs and symptoms of complications Completed patient instructed on drain care as ordered by Physician. documented in this encounter [facility] Plan of care note* Visit Details Visit Type -SN ROUTINE Discipline -Residential Problems Problem Description Start Date Status Goals Interve ntions Sepsis Disciplines: Skilled Services 11/26/2023 Active 1 goal linked to scheduled/documen daniel intervention 1 goal intervention scheduled/document ed in this visit Physician Specific Parameters Disciplines: Skilled Services 11/26/2023 Active 1 goal linked to scheduled/documen daniel intervention 1 goal intervention scheduled/document ed in this visit Risk for Falls Disciplines: Skilled Services 11/26/2023 Active 1 goal linked to scheduled/documen daniel intervention 1 goal intervention scheduled/document ed in this visit Pain Disciplines: Skilled Services 11/26/2023 Active 1 goal linked to scheduled/documen daniel intervention 1 goal intervention scheduled/document ed in this visit Discharge Disciplines: Skilled Services 11/26/2023 Active 1 goal linked to scheduled/documen daniel intervention 2 goal interventions scheduled/document ed in this visit SN Learning Assessment Disciplines: 11/26/2023 Active 1 goal linked to scheduled/documen daniel intervention 1 goal intervention scheduled/document ed in this visit SN Genitourinary disease process Disciplines: 11/26/2023 Active 1 goal linked to scheduled/documen daniel intervention 2 goal interventions scheduled/document ed in this visit SN Integumentary/Wound s Disciplines: 11/26/2023 Active 1 goal linked to scheduled/documen daniel intervention 2 goal interventions scheduled/document ed in this visit Goals Goal Associated Problem Outcome Goal Met? Visit Notes Patient/caregiver will be able to identify and report symptoms of sepsis Description: Patient/caregiver will be able to identify signs/symptoms of sepsis infection and will verbalize actions to take if suspected by 01/24/24. Sepsis No Patient to maintain parameters within physician-specified ranges throughout certification period Physician Specific Parameters No Manage Risk for falls Description: Patient/caregiver will verbalize knowledge of individualized fall prevention strategies by 01/24/24. Risk for Falls No Manage Pain Description: Patient/caregiver will verbalize knowledge and understanding of appropriate techniques to control pain, including non-pharmacological techniques. Patient will verbalize or demonstrate an acceptable level of pain as evidenced by a pain score of 0/10 and improvement in ability to perform activities of daily living to be achieved by 01/24/24. Pain No Manage discharge planning Description: Patient/caregiver will verbalize understanding of ongoing discharge plan provided related to disease management, arrangements for outpatient and/or community services, obtaining medications, supplies, and DME, as needed throughout certification period. Discharge No Demonstrate understanding of education Description: Patient and/or caregiver will verbalize understanding of educational instruction provided throughout certification period. SN Learning Assessment No Patient/Caregiver will verbalize understanding and demonstrate improved management of genitourinary disease/condition. Description: Patient/Caregiver will state understanding of genitourinary disease/condition and be able to teach back management strategies by 01/10/24 SN Genitourinary disease process No Patient/Caregiver will have improved healing and be free of signs and symptoms of complications Description: Patient/caregiver will verbalize management strategies to promote wound healing & prevent complications as evidenced by improved healing & no complications by 01/10/24. SN Integumentary/Wounds No Interventions Intervention Associated Problem/Goal Status Variance Visit Notes Risk of Sepsis Description: Patient is at risk for sepsis. Monitor closely for s/s of sepsis. Problem:Sepsis Goal:Patient/caregive r will be able to identify and report symptoms of sepsis Completed SPO2 Description: Notify Dr. Murrell if pulse ox is <92% at rest. Problem:Physician Specific Parameters Goal:Patient to maintain parameters within physician-specified ranges throughout certification period Completed Instruct on individual fall risk factors and strategies to prevent falls and injuries caused by falls. Problem:Risk for Falls Goal:Manage Risk for falls Completed SN: Patient instructed on Eliminating Environmental Hazards: Keep pathways clear, Keep pets out of pathways and Remove unsafe rugs Instruct on pain and instruct on strategies to control pain Problem:Pain Goal:Manage Pain Completed patient instructed on techniques to control pain including Pharmacological measures. Deliver NOMNC Problem:Discharge Goal:Manage discharge planning Completed Delivered NOMNC on 01/03/24 for discharge date of 01/10/24 Instruct on ongoing discharge plan Problem:Discharge Goal:Manage discharge planning Completed Ongoing Discharge plan: Discharge plan discussed with patient including frequency and duration for home SN and plan for transition to: live independently at home without ongoing services. Instruct and educate on knowledge deficits Problem:SN Learning Assessment Goal:Demonstrate understanding of education Completed patient verbalize and/or demonstrate understanding of nursing education completed today. Education methods include: verbal cues and teach back. Further education required to improve knowledge and compliance with fall prevention/home safety strategies and genitourinary care management. Nephrostomy Tubes: Instruct patient/caregiver on nephrostomy tube care/management Description: Nephrostomy tube location: Bilateral Problem:SN Genitourinary disease process Goal:Patient/Caregive r will verbalize understanding and demonstrate improved management of genitourinary disease/condition. Completed Caregiver instructed on flushing, site care and management of drainage system. UTI- Instruct Patient/Caregiver on signs and symptoms of urinary tract infection, treatment measures, measures to prevent reoccurence, and when to notify physician of symptoms Problem:SN Genitourinary disease process Goal:Patient/Caregive r will verbalize understanding and demonstrate improved management of genitourinary disease/condition. Completed patient instructed on signs and symptoms of UTI and when to notify physician. Drain Care: Perform drain care Description: Drain care as follows: Per Dr. Antonio: The nephrostomy tubes do not need flushed routinely. Change the dressing prn. Cleanse with NS, pat dry, dress with split gauze and tegaderm. Problem:SN Integumentary/Wounds Goal:Patient/Caregive r will have improved healing and be free of signs and symptoms of complications Completed patient instructed on drain care as ordered by Physician. Drain Care: Instruct patient/caregiver to perform drain care Problem:SN Integumentary/Wounds Goal:Patient/Caregive r will have improved healing and be free of signs and symptoms of complications Completed patient instructed on drain care as ordered by Physician. [facility] Visit Details Visit Type -SN AGENCY DC W V ISIT Discipline -Residential Problems Problem Description Start Date Status Goals Interve ntions Sepsis Disciplines: Skilled Services 11/26/2023 Resolved on 01/10/2024 1 goal linked to scheduled/documen daniel intervention 1 goal intervention scheduled/documen daniel in this visit Physician Specific Parameters Disciplines: Skilled Services 11/26/2023 Resolved on 01/10/2024 1 goal linked to scheduled/documen daniel intervention 1 goal intervention scheduled/documen daniel in this visit Risk for Falls Disciplines: Skilled Services 11/26/2023 Resolved on 01/10/2024 1 goal linked to scheduled/documen daniel intervention 1 goal intervention scheduled/documen daniel in this visit Pain Disciplines: Skilled Services 11/26/2023 Resolved on 01/10/2024 1 goal linked to scheduled/documen daniel intervention 1 goal intervention scheduled/documen daniel in this visit Discharge Disciplines: Skilled Services 11/26/2023 Resolved on 01/10/2024 1 goal linked to scheduled/documen daniel intervention 3 goal interventions scheduled/documen daniel in this visit SN Learning Assessment Disciplines: SN 11/26/2023 Resolved on 01/10/2024 1 goal linked to scheduled/documen daniel intervention 1 goal intervention scheduled/documen daniel in this visit SN Genitourinary disease process Disciplines: SN 11/26/2023 Resolved on 01/10/2024 1 goal linked to scheduled/documen daniel intervention 2 goal interventions scheduled/documen daniel in this visit SN Integumentary/Woun ds Disciplines: SN 11/26/2023 Resolved on 01/10/2024 1 goal linked to scheduled/documen daniel intervention 2 goal interventions scheduled/documen daniel in this visit Goals Goal Associated Problem Outcome Goal Met? Visit Notes Patient/caregiver will be able to identify and report symptoms of sepsis Description: Patient/caregiver will be able to identify signs/symptoms of sepsis infection and will verbalize actions to take if suspected by 01/24/24. Sepsis No Patient to maintain parameters within physician-specified ranges throughout certification period Physician Specific Parameters No Manage Risk for falls Description: Patient/caregiver will verbalize knowledge of individualized fall prevention strategies by 01/24/24. Risk for Falls No Manage Pain Description: Patient/caregiver will verbalize knowledge and understanding of appropriate techniques to control pain, including non-pharmacological techniques. Patient will verbalize or demonstrate an acceptable level of pain as evidenced by a pain score of 0/10 and improvement in ability to perform activities of daily living to be achieved by 01/24/24. Pain No Manage discharge planning Description: Patient/caregiver will verbalize understanding of ongoing discharge plan provided related to disease management, arrangements for outpatient and/or community services, obtaining medications, supplies, and DME, as needed throughout certification period. Discharge No Demonstrate understanding of education Description: Patient and/or caregiver will verbalize understanding of educational instruction provided throughout certification period. SN Learning Assessment No Patient/Caregiver will verbalize understanding and demonstrate improved management of genitourinary disease/condition. Description: Patient/Caregiver will state understanding of genitourinary disease/condition and be able to teach back management strategies by 01/10/24 SN Genitourinary disease process No Patient/Caregiver will have improved healing and be free of signs and symptoms of complications Description: Patient/caregiver will verbalize management strategies to promote wound healing & prevent complications as evidenced by improved healing & no complications by 01/10/24. SN Integumentary/Wounds No Interventions Intervention Associated Problem/Goal Status Variance Visit Notes Risk of Sepsis Description: Patient is at risk for sepsis. Monitor closely for s/s of sepsis. Problem:Sepsis Goal:Patient/caregive r will be able to identify and report symptoms of sepsis Completed SPO2 Description: Notify Dr. Murrell if pulse ox is <92% at rest. Problem:Physician Specific Parameters Goal:Patient to maintain parameters within physician-specified ranges throughout certification period Completed Instruct on individual fall risk factors and strategies to prevent falls and injuries caused by falls. Problem:Risk for Falls Goal:Manage Risk for falls Completed SN: Patient instructed on Eliminating Environmental Hazards: Keep pathways clear, Keep pets out of pathways, Remove unsafe rugs, Move furniture from pathways and Keep rooms and walkways well lit Instruct on pain and instruct on strategies to control pain Problem:Pain Goal:Manage Pain Completed patient instructed on techniques to control pain including Pharmacological measures. Instruct on final discharge plan and deliver discharge instructions Problem:Discharge Goal:Manage discharge planning Completed Delivered Discharge plan: Discharge plan discussed with patient for plan for transition to: live independently at home without ongoing services Instruct on ongoing discharge plan Problem:Discharge Goal:Manage discharge planning Completed Ongoing Discharge plan: Discharge plan discussed with patient including frequency and duration for home SN and plan for transition to: live independently at home without ongoing services. Instruct on importance of follow-up appts and continued monitoring with medical provider &/or chronic care clinic Problem:Discharge Goal:Manage discharge planning Completed Education provided on importance of compliance with follow-up appointment(s). Recommendations: None Instruct and educate on knowledge deficits Problem:SN Learning Assessment Goal:Demonstrate understanding of education Completed patient verbalize and/or demonstrate understanding of nursing education completed today. Education methods include: verbal cues and teach back. Further education required to improve knowledge and compliance with drain care management and fall prevention/home safety strategies. Nephrostomy Tubes: Instruct patient/caregiver on nephrostomy tube care/management Description: Nephrostomy tube location: Bilateral Problem:SN Genitourinary disease process Goal:Patient/Caregive r will verbalize understanding and demonstrate improved management of genitourinary disease/condition. Completed Patient instructed on flushing. UTI- Instruct Patient/Caregiver on signs and symptoms of urinary tract infection, treatment measures, measures to prevent reoccurence, and when to notify physician of symptoms Problem:SN Genitourinary disease process Goal:Patient/Caregive r will verbalize understanding and demonstrate improved management of genitourinary disease/condition. Completed patient instructed on signs and symptoms of UTI and when to notify physician. Drain Care: Perform drain care Description: Drain care as follows: Per Dr. Antonio: The nephrostomy tubes do not need flushed routinely. Change the dressing prn. Cleanse with NS, pat dry, dress with split gauze and tegaderm. Problem:SN Integumentary/Wounds Goal:Patient/Caregive r will have improved healing and be free of signs and symptoms of complications Completed patient instructed on drain care as ordered by Physician. Drain Care: Instruct patient/caregiver to perform drain care Problem:SN Integumentary/Wounds Goal:Patient/Caregive r will have improved healing and be free of signs and symptoms of complications Completed patient instructed on drain care as ordered by Physician. documented in this encounter [facility] for referral (narrative)No reason for [facility]: Reason for visit Narrative* Injectable (Routine) - Authorized Specialty Diagnoses / Procedures Referred By Contmarisol t Referred To Contact [facility] Diagnoses Unspecified hydronephrosis PICC Care Procedures INJECTION, LIDOCAINE HYDROCHLORIDE INJECTION [place] [id number] [facility] [place] [address] Infusion [address] [place] [address] [place] [address] Phone: tel: fax: Referral ID Status Reason Start Date Expiration Date V isits Requested Visits Authorized [id number] Authorized 01/23/2025 11/18/2025 99 99 [facility] for visit Narrative* Diagnostic Procedure Only (Routine) - Closed Specialty Diagnoses / Procedures Referred By Tessie t Referred To Contact [facility] IMAG[facility] Diagnoses Nephrostomy tube bleed (HCC) Procedures XR ABDOMEN 1V SUPINE RADIOLOGIC EXAM ABDOMEN 1 [address] Corina Ruffin, [email or web address] [place] [address] Phone: tel: fax: [place] [id number] Referral ID Status Reason Start Date Expiration Date V isits Requested Visits Authorized [id number] Closed Auto-Generate d Referral 01/27/2025 02/26/2026 1 1 [facility] Summary Purpose Family History No Family History Records Found Relationship Condition Age at Onset Recorded Date/T papito father Coronary artery disease Unknown History of coronary artery bypass surgery Unknown Relationship Condition Age at Onset Recorded Date/T papito father Coronary artery disease Unknown History of coronary artery bypass surgery Unknown mother Malignant neoplasm Unknown Advance Directives No Advanced Directives Records Found Date Activated Date Inactivated Comments 01/13/2025 7:10 PM 01/19/2025 5:50 PM Question Answer Comments Full Code Order Discussed With: Patient Date Activated Date Inactivated Comments 12/05/2024 11:28 AM 12/06/2024 8:09 PM Question Answer Comments Full Code Order Discussed With: Patient Date Activated Date Inactivated Comments 09/06/2024 7:49 PM 09/08/2024 1:56 PM Question Answer Comments Full Code Order Discussed With: Patient Date Activated Date Inactivated Comments 06/18/2024 9:56 AM 06/19/2024 4:01 PM Question Answer Comments Full Code Order Discussed With: Patient Date Activated Date Inactivated Comments 11/26/2023 11:57 AM 01/01/2024 10:58 AM Date Activated Date Inactivated Comments 01/13/2025 7:10 PM Question Answer Comments Full Code Order Discussed With: Patient Date Activated Date Inactivated Comments 12/05/2024 11:28 AM 12/06/2024 8:09 PM Question Answer Comments Full Code Order Discussed With: Patient Date Activated Date Inactivated Comments 09/06/2024 7:49 PM 09/08/2024 1:56 PM Question Answer Comments Full Code Order Discussed With: Patient Date Activated Date Inactivated Comments 06/18/2024 9:56 AM 06/19/2024 4:01 PM Question Answer Comments Full Code Order Discussed With: Patient Date Activated Date Inactivated Comments 11/26/2023 11:57 AM 01/01/2024 10:58 AM Date Activated Date Inactivated Comments 12/05/2024 11:28 AM 12/06/2024 8:09 PM Date Activated Date Inactivated Comments 09/06/2024 7:49 PM 09/08/2024 1:56 PM Date Activated Date Inactivated Comments 06/18/2024 9:56 AM 06/19/2024 4:01 PM Date Activated Date Inactivated Comments 11/26/2023 11:57 AM 01/01/2024 10:58 AM Date Activated Date Inactivated Comments 11/17/2023 2:20 PM 11/24/2023 10:12 PM Question Answer Comments Full Code Order Discussed With: Patient Advance Directive Response Recorded Date/ Time Advance Directives No March 29 0 12:24pm Living Will No December 05 4:45pm Power of Wild Life Manager No December 05, 2021 4:45pm Advance Directive Response Recorded Date/ Time Advance Directives No March 29 0 12:24pm Living Will No July 19 2 10:13am Power of Wild Life Manager No July 19 022 10:13am Advance Directive Response Recorded Date/ Time Advance Directives No March 29 0 12:24pm Living Will No July 29, 2022 4:47pm Power of Wild Life Manager No July 4:47pm Advance Directive Response Recorded Date/ Time Advance Directives No March 29 0 11:24am Living Will No July 29, 2022 3:47pm Power of Wild Life Manager No July 3:47pm Advance Directive Response Recorded Date/ Time Advance Directives No March 29 0 11:24am Living Will No January 17, 2023 10:13am Power of Wild Life Manager No January 17 3 10:13am Advance Directive Response Recorded Date/ Time Advance Directives No March 29 0 12:24pm Living Will No January 17, 2023 11:13am Power of Wild Life Manager No January 17 3 11:13am Advance Directive Response Recorded Date/ Time Advance Directives No March 29 0 12:24pm Living Will No June 01, 2023 9:26am Power of Wild Life Manager No June 01 3 9:26am Advance Directive Response Recorded Date/ Time Advance Directives No March 29 0 12:24pm Living Will No August 02, 2023 4:23pm Power of Wild Life Manager No July 4:23pm Advance Directive Response Recorded Date/ Time Advance Directives No March 29 0 12:24pm Living Will No September 19 9:35am Power of Wild Life Manager No September 19, 2023 9:35am Advance Directive Response Recorded Date/ Time Advance Directives No March 29 0 12:24pm Living Will No September 19 2:40pm Power of Wild Life Manager No September 19, 2023 2:40pm Advance Directive Response Recorded Date/ Time Advance Directives No March 29 0 11:24am Living Will No September 19 1:40pm Power of Wild Life Manager No September 19, 2023 1:40pm Advance Directive Response Recorded Date/ Time Advance Directives No March 29 0 11:24am Living Will No October 09 023 2:28pm Power of Wild Life Manager No October 09, 2023 2:28pm Latest Code Status on File Code Status Date Activated Date Inactivated Comments Full Code 10/10/2023 12:13 AM 10/12/2023 4:32 PM Question Answer Comments Full Code Order Discussed With: Patient Advance Directive Response Recorded Date/ Time Advance Directives No March 29 0 11:24am Living Will No November 06, 2 023 11:46am Power of Wild Life Manager No November 06, 2023 11:46am Advance Directive Response Recorded Date/ Time Advance Directives No March 29 0 11:24am Living Will No November 10, 2 023 8:11pm Power of Wild Life Manager No November 10, 2023 8:11pm Advance Directive Response Recorded Date/ Time Advance Directives No March 29 0 11:24am Living Will No November 10, 2 023 11:26pm Power of Wild Life Manager No November 10, 2023 11:26pm Latest Code Status on File Code Status Date Activated Date Inactivated Comments Full Code 11/26/2023 11:57 AM Code Status History Code Status Date Activated Date Inactivated Comments Full Code 11/17/2023 2:20 PM 11/24/2023 10:12 PM Question Answer Comments Full Code Order Discussed With: Patient Full Code 10/10/2023 12:13 AM 10/12/2023 4:32 PM Question Answer Comments Full Code Order Discussed With: Patient Latest Code Status on File Code Status Date Activated Date Inactivated Comments Full Code 11/26/2023 11:57 AM Code Status History Code Status Date Activated Date Inactivated Comments Full Code 11/17/2023 2:20 PM 11/24/2023 10:12 PM Question Answer Comments Full Code Order Discussed With: Patient Full Code 10/10/2023 12:13 AM 10/12/2023 4:32 PM Question Answer Comments Full Code Order Discussed With: Patient Latest Code Status on File Code Status Date Activated Date Inactivated Comments Full Code 11/26/2023 11:57 AM 01/01/2024 10:58 AM Latest Code Status on File Code Status Date Activated Date Inactivated Comments Full Code 11/26/2023 11:57 AM 01/01/2024 10:58 AM Advance Directive Response Recorded Date/ Time Advance Directives No March 29 12:24pm Living Will No November 16, 2 023 5:27pm Power of Wild Life Manager No November 16, 2023 5:27pm Date Activated Date Inactivated Comments 11/26/2023 11:57 AM 01/01/2024 10:58 AM Date Activated Date Inactivated Comments 11/17/2023 2:20 PM 11/24/2023 10:12 PM Date Activated Date Inactivated Comments 10/10/2023 12:13 AM 10/12/2023 4:32 PM Advance Directive Response Recorded Date/ Time Advance Directives No March 29 12:24pm Living Will No February 14, 2024 5:44pm Power of Wild Life Manager No February 13 5:44pm Advance Directive Response Recorded Date/ Time Advance Directives No March 29 12:24pm Living Will No February 14, 2024 8:45pm Power of Wild Life Manager No February 13 8:45pm Date Activated Date Inactivated Comments 11/26/2023 11:57 AM 01/01/2024 10:58 AM Date Activated Date Inactivated Comments 11/17/2023 2:20 PM 11/24/2023 10:12 PM Date Activated Date Inactivated Comments 10/10/2023 12:13 AM 10/12/2023 4:32 PM Date Activated Date Inactivated Comments 06/18/2024 9:56 AM 06/19/2024 4:01 PM Date Activated Date Inactivated Comments 11/26/2023 11:57 AM 01/01/2024 10:58 AM Date Activated Date Inactivated Comments 11/17/2023 2:20 PM 11/24/2023 10:12 PM Date Activated Date Inactivated Comments 10/10/2023 12:13 AM 10/12/2023 4:32 PM Date Activated Date Inactivated Comments 09/06/2024 7:49 PM 09/08/2024 1:56 PM Date Activated Date Inactivated Comments 06/18/2024 9:56 AM 06/19/2024 4:01 PM Date Activated Date Inactivated Comments 11/26/2023 11:57 AM 01/01/2024 10:58 AM Date Activated Date Inactivated Comments 11/17/2023 2:20 PM 11/24/2023 10:12 PM Date Activated Date Inactivated Comments 10/10/2023 12:13 AM 10/12/2023 4:32 PM Question Answer Comments Full Code Order Discussed With: Patient Date Activated Date Inactivated Comments 09/06/2024 7:49 PM 09/08/2024 1:56 PM Date Activated Date Inactivated Comments 06/18/2024 9:56 AM 06/19/2024 4:01 PM Date Activated Date Inactivated Comments 11/26/2023 11:57 AM 01/01/2024 10:58 AM Date Activated Date Inactivated Comments 11/17/2023 2:20 PM 11/24/2023 10:12 PM Date Activated Date Inactivated Comments 10/10/2023 12:13 AM 10/12/2023 4:32 PM Advance Directive Response Recorded Date/ Time Advance Directives No March 29 12:24pm Date Activated Date Inactivated Comments 01/13/2025 7:10 PM 01/19/2025 5:50 PM Chief Complaint and Reason for Visit Chief Complaint LT BRACHIAL TO BASIL IC UPPER AV FISTULA CREATION LT BRACHIAL TO BASILIC UPPER AV FISTULA CREATION WOUND CHECK POST OP FISTULA CREATION 11/29 RC 3 WK F/U FISTULA BILATERAL STENT CHANGE 3 WK F/U FISTULA FECAL IMPACTION 6 WEEK F/U FISTULA Reason for Visit Chronic renal failur e, stage 4 (severe) Chronic renal failure, stage 4 (severe) Chronic renal failure, stage 4 (severe) Chronic renal failure, stage 4 (severe) Chronic renal failure, stage 4 (severe) Chief Complaint 3 WK F/U FISTULA FECAL IMPACTION 6 WEEK F/U FISTULA 2 M FU for FISTULA Reason for Visit Chronic renal failur e, stage 4 (severe) Chronic renal failure, stage 4 (severe) Chronic renal failure, stage 4 (severe) Chief Complaint 3 WK F/U FISTULA FECAL IMPACTION 6 WEEK F/U FISTULA 2 M FU for FISTULA RIGHT MEDIAL THIGH ABSCESS Reason for Visit Chronic renal failur e, stage 4 (severe) Chronic renal failure, stage 4 (severe) Chronic renal failure, stage 4 (severe) Chief Complaint 2 M FU for FISTULA RIGHT MEDIAL THIGH ABSCESS 1YR LABS LAB DRAW Reason for Visit Chronic renal failur e, stage 4 (severe) Abscess of right thigh Lymphocytosis Chief Complaint 2 M FU for FISTULA RIGHT MEDIAL THIGH ABSCESS 1YR LABS LAB DRAW BILATERAL STENT CHANGE Reason for Visit Chronic renal failur e, stage 4 (severe) Abscess of right thigh Lymphocytosis Chief Complaint 2 M FU for FISTULA RIGHT MEDIAL THIGH ABSCESS 1YR LABS LAB DRAW BILATERAL STENT CHANGE UTI, SEPSIS, TACHYCARDIA, FEVER UTI, SEPSIS, TACHYCARDIA, FEVER UTI, SEPSIS, TACHYCARDIA, FEVER UTI, SEPSIS, TACHYCARDIA, FEVER UTI, SEPSIS, TACHYCARDIA, FEVER Reason for Visit Chronic renal failur e, stage 4 (severe) Abscess of right thigh Lymphocytosis Acute UTI Sepsis Tachycardia Chronic renal insufficiency Chief Complaint 1YR LABS LAB DRAW BILATERAL STENT CHANGE UTI, SEPSIS, TACHYCARDIA, FEVER UTI, SEPSIS, TACHYCARDIA, FEVER UTI, SEPSIS, TACHYCARDIA, FEVER UTI, SEPSIS, TACHYCARDIA, FEVER UTI, SEPSIS, TACHYCARDIA, FEVER URINE SAMPLE FISTULA CHECK Reason for Visit Lymphocytosis Acute UTI Sepsis Chronic renal insufficiency Tachycardia Chronic renal failure, stage 4 (severe) Chief Complaint 1YR LABS LAB DRAW BILATERAL STENT CHANGE UTI, SEPSIS, TACHYCARDIA, FEVER UTI, SEPSIS, TACHYCARDIA, FEVER UTI, SEPSIS, TACHYCARDIA, FEVER UTI, SEPSIS, TACHYCARDIA, FEVER UTI, SEPSIS, TACHYCARDIA, FEVER URINE SAMPLE FISTULA CHECK TESTING Reason for Visit Lymphocytosis Acute UTI Sepsis Chronic renal insufficiency Tachycardia Chronic renal failure, stage 4 (severe) Chief Complaint BILATERAL STENT [place] GE UTI, SEPSIS, TACHYCARDIA, FEVER UTI, SEPSIS, TACHYCARDIA, FEVER UTI, SEPSIS, TACHYCARDIA, FEVER UTI, SEPSIS, TACHYCARDIA, FEVER UTI, SEPSIS, TACHYCARDIA, FEVER URINE SAMPLE FISTULA CHECK TESTING CHILLS WITHOUT FEVER Reason for Visit Acute UTI Sepsis Chronic renal insufficiency Tachycardia Chronic renal failure, stage 4 (severe) Chief Complaint URINE SAMPLE FISTULA CHECK TESTING CHILLS WITHOUT FEVER Reason for Visit Chronic renal failur e, stage 4 (severe) Chief Complaint URINE SAMPLE FISTULA CHECK TESTING CHILLS WITHOUT FEVER MRSA LEG ABSCESS CUTANEOUS ABCESS OF LEFT LOWER LIMB Reason for Visit Chronic renal failur e, stage 4 (severe) Abscess of left knee Chronic renal failure, stage 4 (severe) Chief Complaint TESTING CHILLS WITHOUT FEVER MRSA LEG ABSCESS CUTANEOUS ABCESS OF LEFT LOWER LIMB VIRAL SYMPTOMS Reason for Visit Abscess of left knee Chronic renal failure, stage 4 (severe) Chief Complaint VIRAL SYMPTOMS cysto with bilateral stent change FISTULA CHECK ABD PAIN ABSCESS ON ARM/MERCA VIRAL SYMPTOMS Reason for Visit Chronic renal failur e, stage 4 (severe) Abscess of forearm Chief Complaint VIRAL SYMPTOMS cysto with bilateral stent change FISTULA CHECK ABD PAIN ABSCESS ON ARM/MERCA VIRAL SYMPTOMS CEFEPIME 2 GRAM Reason for Visit Chronic renal failur e, stage 4 (severe) Abscess of forearm Chief Complaint VIRAL SYMPTOMS cysto with bilateral stent change FISTULA CHECK ABD PAIN ABSCESS ON ARM/MERCA VIRAL SYMPTOMS CEFEPIME 2 GRAM CEFEPIME 2 GRAM Reason for Visit Chronic renal failur e, stage 4 (severe) Abscess of forearm Chief Complaint VIRAL SYMPTOMS cysto with bilateral stent change FISTULA CHECK ABD PAIN ABSCESS ON ARM/MERCA VIRAL SYMPTOMS CEFEPIME 2 GRAM CEFEPIME 2 GRAM CEFEPIME 2 GRAM CEFEPIME 2 GRAM Reason for Visit Chronic renal failur e, stage 4 (severe) Abscess of forearm Chief Complaint VIRAL SYMPTOMS cysto with bilateral stent change FISTULA CHECK ABD PAIN ABSCESS ON ARM/MERCA VIRAL SYMPTOMS CEFEPIME 2 GRAM CEFEPIME 2 GRAM CEFEPIME 2 GRAM CEFEPIME 2 GRAM CEFEPIME 2 GRAM Reason for Visit Chronic renal failur e, stage 4 (severe) Abscess of forearm Chief Complaint VIRAL SYMPTOMS cysto with bilateral stent change FISTULA CHECK ABD PAIN ABSCESS ON ARM/MERCA VIRAL SYMPTOMS CEFEPIME 2 GRAM CEFEPIME 2 GRAM CEFEPIME 2 GRAM CEFEPIME 2 GRAM CEFEPIME 2 GRAM CEFEPIME 2 GRAM Reason for Visit Chronic renal failur e, stage 4 (severe) Abscess of forearm Chief Complaint VIRAL SYMPTOMS cysto with bilateral stent change FISTULA CHECK ABD PAIN ABSCESS ON ARM/MERCA VIRAL SYMPTOMS CEFEPIME 2 GRAM CEFEPIME 2 GRAM CEFEPIME 2 GRAM CEFEPIME 2 GRAM CEFEPIME 2 GRAM CEFEPIME 2 GRAM CEFEPIME 2 GRAM Reason for Visit Chronic renal failur e, stage 4 (severe) Abscess of forearm Chief Complaint FISTULA CHECK ABD PAIN ABSCESS ON ARM/MERCA VIRAL SYMPTOMS CEFEPIME 2 GRAM CEFEPIME 2 GRAM CEFEPIME 2 GRAM CEFEPIME 2 GRAM CEFEPIME 2 GRAM CEFEPIME 2 GRAM CEFEPIME 2 GRAM Reason for Visit Chronic renal failur e, stage 4 (severe) Abscess of forearm Chief Complaint FISTULA CHECK ABD PAIN ABSCESS ON ARM/MERCA VIRAL SYMPTOMS CEFEPIME 2 GRAM CEFEPIME 2 GRAM CEFEPIME 2 GRAM CEFEPIME 2 GRAM CEFEPIME 2 GRAM CEFEPIME 2 GRAM CEFEPIME 2 GRAM CEFEPIME Reason for Visit Chronic renal failur e, stage 4 (severe) Abscess of forearm Chief Complaint FISTULA CHECK ABD PAIN ABSCESS ON ARM/MERCA VIRAL SYMPTOMS CEFEPIME 2 GRAM CEFEPIME 2 GRAM CEFEPIME 2 GRAM CEFEPIME 2 GRAM CEFEPIME 2 GRAM CEFEPIME 2 GRAM CEFEPIME 2 GRAM CEFEPIME CEFEPIME Reason for Visit Chronic renal failur e, stage 4 (severe) Abscess of forearm Chief Complaint FISTULA CHECK ABD PAIN ABSCESS ON ARM/MERCA VIRAL SYMPTOMS CEFEPIME 2 GRAM CEFEPIME 2 GRAM CEFEPIME 2 GRAM CEFEPIME 2 GRAM CEFEPIME 2 GRAM CEFEPIME 2 GRAM CEFEPIME 2 GRAM CEFEPIME CEFEPIME CEFEPIME CYSTOSCOPY WITH BILATERAL URETERAL STENT DUE ON OR AROUND DATE LISTED Reason for Visit Chronic renal failur e, stage 4 (severe) Abscess of forearm Chief Complaint ABD PAIN ABSCESS ON ARM/MERCA VIRAL SYMPTOMS CEFEPIME 2 GRAM CEFEPIME 2 GRAM CEFEPIME 2 GRAM CEFEPIME 2 GRAM CEFEPIME 2 GRAM CEFEPIME 2 GRAM CEFEPIME 2 GRAM CEFEPIME CEFEPIME CEFEPIME CYSTOSCOPY WITH BILATERAL URETERAL STENT DUE ON OR AROUND DATE LISTED CHILLS W/O FEVER Reason for Visit Abscess of forearm Chief Complaint ABSCESS ON ARM/MERCA VIRAL SYMPTOMS CEFEPIME 2 GRAM CEFEPIME 2 GRAM CEFEPIME 2 GRAM CEFEPIME 2 GRAM CEFEPIME 2 GRAM CEFEPIME 2 GRAM CEFEPIME 2 GRAM CEFEPIME CEFEPIME CEFEPIME CYSTOSCOPY WITH BILATERAL URETERAL STENT DUE ON OR AROUND DATE LISTED CHILLS W/O FEVER COMPLICATED UTI UTI, LULY, CKD COMPLICATED UTI COMPLICATED UTI COMPLICATED UTI Reason for Visit Abscess of forearm LULY (acute kidney injury) Complicated urinary tract infection Hydronephrosis Acute kidney injury superimposed on CKD Essential hypertension Chief Complaint VIRAL SYMPTOMS CEFEPIME 2 GRAM CEFEPIME 2 GRAM CEFEPIME 2 GRAM CEFEPIME 2 GRAM CEFEPIME 2 GRAM CEFEPIME 2 GRAM CEFEPIME 2 GRAM CEFEPIME CEFEPIME CEFEPIME CYSTOSCOPY WITH BILATERAL URETERAL STENT DUE ON OR AROUND DATE LISTED CHILLS W/O FEVER COMPLICATED UTI UTI, LULY, CKD COMPLICATED UTI COMPLICATED UTI COMPLICATED UTI COMPLICATED UTI NEED ORDER FROM DR GARCÍA Reason for Visit Complicated urinary tract infection Hydronephrosis Acute kidney injury superimposed on CKD Essential hypertension Chief Complaint CEFEPIME 2 GRAM CEFEPIME CEFEPIME CEFEPIME CYSTOSCOPY WITH BILATERAL URETERAL STENT DUE ON OR AROUND DATE LISTED CHILLS W/O FEVER COMPLICATED UTI UTI, LULY, CKD COMPLICATED UTI COMPLICATED UTI COMPLICATED UTI COMPLICATED UTI NEED ORDER FROM DR GARCÍA UTI Reason for Visit Complicated urinary tract infection Hydronephrosis Acute kidney injury superimposed on CKD Essential hypertension Acute dehydration Diarrhea Leukocytosis Pyuria Acute kidney injury superimposed on chronic kidney disease Chief Complaint CEFEPIME CEFEPIME CEFEPIME CYSTOSCOPY WITH BILATERAL URETERAL STENT DUE ON OR AROUND DATE LISTED CHILLS W/O FEVER COMPLICATED UTI UTI, LULY, CKD COMPLICATED UTI COMPLICATED UTI COMPLICATED UTI COMPLICATED UTI NEED ORDER FROM DR GARCÍA UTI Urinary tract infection Urinary tract infection Urinary tract infection Urinary tract infection Reason for Visit Complicated urinary tract infection Hydronephrosis Acute kidney injury superimposed on CKD Essential hypertension Acute dehydration Acute UTI Complicated urinary tract infection Diarrhea Leukocytosis Pyuria Acute kidney injury superimposed on chronic kidney disease Chief Complaint DUE ON OR AROUND DEANA E LISTED CHILLS W/O FEVER COMPLICATED UTI UTI, LULY, CKD COMPLICATED UTI COMPLICATED UTI COMPLICATED UTI COMPLICATED UTI NEED ORDER FROM DR GARCÍA UTI Urinary tract infection Urinary tract infection Urinary tract infection Urinary tract infection LAB DRAW Reason for Visit Hydronephrosis Acute kidney injury superimposed on CKD Essential hypertension Complicated urinary tract infection Acute dehydration Acute kidney injury superimposed on chronic kidney disease Acute UTI Complicated urinary tract infection Diarrhea Leukocytosis Pyuria Chief Complaint DUE ON OR AROUND DEANA E LISTED CHILLS W/O FEVER COMPLICATED UTI UTI, LULY, CKD COMPLICATED UTI COMPLICATED UTI COMPLICATED UTI COMPLICATED UTI NEED ORDER FROM DR GARCÍA UTI Urinary tract infection Urinary tract infection Urinary tract infection Urinary tract infection LAB DRAW abn labs Reason for Visit Hydronephrosis Acute kidney injury superimposed on CKD Essential hypertension Complicated urinary tract infection Acute dehydration Acute kidney injury superimposed on chronic kidney disease Acute UTI Complicated urinary tract infection Diarrhea Leukocytosis Pyuria Chief Complaint CHILLS W/O FEVER COMPLICATED UTI UTI, LULY, CKD COMPLICATED UTI COMPLICATED UTI COMPLICATED UTI COMPLICATED UTI NEED ORDER FROM DR GARCÍA UTI Urinary tract infection Urinary tract infection Urinary tract infection Urinary tract infection LAB DRAW abn labs Reason for Visit Hydronephrosis Acute kidney injury superimposed on CKD Essential hypertension Complicated urinary tract infection Acute dehydration Acute kidney injury superimposed on chronic kidney disease Acute UTI Complicated urinary tract infection Diarrhea Leukocytosis Pyuria Chief Complaint CHILLS W/O FEVER COMPLICATED UTI UTI, LULY, CKD COMPLICATED UTI COMPLICATED UTI COMPLICATED UTI COMPLICATED UTI NEED ORDER FROM DR GARCÍA UTI Urinary tract infection Urinary tract infection Urinary tract infection Urinary tract infection LAB DRAW abn labs abd pain, nausea, diarrhea Reason for Visit Hydronephrosis Acute kidney injury superimposed on CKD Essential hypertension Complicated urinary tract infection Acute dehydration Acute kidney injury superimposed on chronic kidney disease Acute UTI Complicated urinary tract infection Diarrhea Leukocytosis Pyuria Chief Complaint CHILLS W/O FEVER COMPLICATED UTI UTI, LULY, CKD COMPLICATED UTI COMPLICATED UTI COMPLICATED UTI COMPLICATED UTI NEED ORDER FROM DR GARCÍA UTI Urinary tract infection Urinary tract infection Urinary tract infection Urinary tract infection LAB DRAW abn labs abd pain, nausea, diarrhea GENERAL ILLNESS Reason for Visit Hydronephrosis Acute kidney injury superimposed on CKD Essential hypertension Complicated urinary tract infection Acute dehydration Acute kidney injury superimposed on chronic kidney disease Acute UTI Complicated urinary tract infection Diarrhea Leukocytosis Pyuria Acute UTI History of sepsis Leukocytosis Sepsis Chronic kidney disease Chief Complaint CHILLS W/O FEVER COMPLICATED UTI UTI, LULY, CKD COMPLICATED UTI COMPLICATED UTI COMPLICATED UTI COMPLICATED UTI NEED ORDER FROM DR GARCÍA UTI Urinary tract infection Urinary tract infection Urinary tract infection Urinary tract infection LAB DRAW abn labs abd pain, nausea, diarrhea RECURRENT UTI WITH SEPSIS RECURRENT UTI WITH SEPSIS RECURRENT UTI WITH SEPSIS RECURRENT UTI WITH SEPSIS Reason for Visit Hydronephrosis Acute kidney injury superimposed on CKD Essential hypertension Complicated urinary tract infection Acute dehydration Acute kidney injury superimposed on chronic kidney disease Acute UTI Complicated urinary tract infection Diarrhea Leukocytosis Pyuria Acute UTI History of sepsis Leukocytosis Sepsis Chronic kidney disease Chief Complaint abd pain, nausea, di arrhea RECURRENT UTI WITH SEPSIS RECURRENT UTI WITH SEPSIS RECURRENT UTI WITH SEPSIS RECURRENT UTI WITH SEPSIS general illness Reason for Visit Acute UTI Chief Complaint abd pain, nausea, di arrhea RECURRENT UTI WITH SEPSIS RECURRENT UTI WITH SEPSIS RECURRENT UTI WITH SEPSIS RECURRENT UTI WITH SEPSIS general illness RIGHT PYELONEPHRITIS Reason for Visit Acute UTI Bilateral hydronephrosis Complicated urinary tract infection Leukocytosis Sinus tachycardia Chronic renal failure, stage 4 (severe) Essential hypertension Hyperlipidemia Chief Complaint abd pain, nausea, di arrhea RECURRENT UTI WITH SEPSIS RECURRENT UTI WITH SEPSIS RECURRENT UTI WITH SEPSIS RECURRENT UTI WITH SEPSIS general illness RIGHT PYELONEPHRITIS RIGHT PYELONEPHRITIS RIGHT PYELONEPHRITIS RIGHT PYELONEPHRITIS Reason for Visit Acute UTI Bilateral hydronephrosis Complicated urinary tract infection Hypokalemia Leukocytosis Pyelonephritis of right kidney Sinus tachycardia UTI (urinary tract infection) Chronic renal failure, stage 4 (severe) Essential hypertension Hyperlipidemia Chief Complaint RIGHT PYELONEPHRITIS RIGHT PYELONEPHRITIS RIGHT PYELONEPHRITIS RIGHT PYELONEPHRITIS 6 M FISTULA CHECK (OVERDUE) Reason for Visit Complicated urinary tract infection UTI (urinary tract infection) Hypokalemia Leukocytosis Sinus tachycardia Chronic kidney disease, stage IV (severe) Chief Complaint Admit Date Fistula Check, Establish Care February 10:51am LABS April 15, 2025 8:46a m Reason for Visit Admit Date AV fistula March 03, 2025 10: 51am Chief Complaint Admit Date LABS April 15, 2025 8:46a m Additional Source Comments INFORMATION SOURCE (unrecogn ized section and content) DATE CREATED AUTHOR 11/10/2018 [facility] DATE CREATED AUTHOR AUTHOR'S ORGANIZ ATION 12/22/2023 [facility] DATE CREATED AUTHOR AUTHOR'S ORGANIZ ATION 01/02/2024 [facility] DATE CREATED AUTHOR AUTHOR'S ORGANIZ ATION 09/02/2025 [facility] DATE CREATED AUTHOR AUTHOR'S ORGANIZ ATION 09/21/2025 [facility] Goals (unrecognized section and content) Goals may be documented in a n alternate sectionGoals may be documented in an alternate sectionGoals may be documented in an alternate sectionGoals may be documented in an alternate sectionGoals may be documented in an alternate sectionGoals may be documented in an alternate sectionGoals may be documented in an alternate sectionGoals may be documented in an alternate sectionGoals may be documented in an alternate sectionGoals may be documented in an alternate sectionGoals may be documented in an alternate sectionGoals may be documented in an alternate sectionGoals may be documented in an alternate sectionGoals may be documented in an alternate sectionGoals may be documented in an alternate sectionGoals may be documented in an alternate section Care Teams (unrecognized sec tion and content) Team Status: Active Member Role Status Dates Dr. Gerardo García MD Family Provider Active Dr. Gerardo García MD Primary Care Provider Active Team Status: Inactive Member Role Status Dates Dr. Gerardo García MD Primary Care Provider, Referring Provider Active Eden DEY PA-C Attending Provider Active Team Status: Inactive Member Role Status Dates Dr. Gerardo García MD Primary Care Provi lenka, Attending Provider, Referring Provider Active Team Status: Inactive Member Role Status Dates Dr. Gerardo García MD Primary Care Provider Active Dr. Luz Maria Matthews DO Attending Provider Active Luz Maria Matthews MD Referring Provider Active Team Status: Inactive Member Role Status Dates Dr. Gerardo García MD Primary Care Provider Active Dr. Luz Maria Matthews DO Attending Provider, Referring P fredy Active Team Status: Inactive Member Role Status Dates Dr. Gerardo García MD Primary Care Provider Active Dr. Joshua Strickland MD Attending Provider Active Team Status: Inactive Member Role Status Dates Dr. Gerardo García MD Attending Provider Active Team Status: Inactive Member Role Status Dates Dr. Gerardo García MD Primary Care Provi lenka, Attending Provider, Referring Provider Active Dr. Joshua Strickland MD Other Provider Active Team Status: Inactive Member Role Status Dates Dr. Gerardo García MD Primary Care Provider, Attending Provider Active Team Status: Inactive Member Role Status Dates Dr. Gerardo García MD Primary Care Provider Active Gerardo García MD Attending Provider Active Team Status: Active Member Role Status Dates Dr. Gerardo García MD Primary Care Provider, Attending Provider Active Team Status: Inactive Member Role Status Dates Dr. Gerardo García MD Primary Care Provider Active Dr. Joshua Strickland MD Attending Provider, Referr ing Provider Active Team Status: Inactive Member Role Status Dates Dr. Greardo García MD Primary Care Provider Active Gerardo CLANCY MD Attending Provider Active Team Status: Active Member Role Status Dates Dr. Gerardo García MD Primary Care Provi lenka, Attending Provider, Referring Provider Active Team Status: Active Member Role Status Dates Dr. Gerardo Gracía MD Primary Care Provider Active Dr. Brian Mckee DO Emergency Provider Active Dr. Holly Echeverria MD Admit Provider, Other Provider A ctive Dr. Joshua Strickland MD Other Provider Active Dr. Rafa Lofton DO Attending Provider, Other Provid er Active Team Status: Active Member Role Status Dates Dr. Gerardo García MD Primary Care Provider Active Dr. Brian Mckee DO Emergency Provider Active Dr. Holly Echeverria MD Admit Provider, Other Provider A ctive Dr. Joshua Strickland MD Other Provider Active Dr. John Light , DO Attending Provider, Other Pro vider Active Dr. Rafa Lofton DO Other Provider Active Dr. Ky Goddard MD Other Provider Active Team Status: Inactive Member Role Status Dates Dr. Gerardo García MD Primary Care Provider Active Dr. Brian Mckee DO Emergency Provider Active Dr. Holly Echeverria MD Admit Provider, Other Provider A ctive Dr. Joshua Strickland MD Other Provider Active Dr. John Light , DO Attending Provider Active Dr. Rafa Lofton DO Other Provider Active Dr. Ky Goddard MD Other Provider Active Team Status: Active Member Role Status Dates Dr. Gerardo García MD Primary Care Provider Active Angela Sorto Attending Provider, Referring Provid er Active Team Status: Active Member Role Status Dates Dr. Gerardo García MD Primary Care Provider Active Dr. Altaf Villa MD Emergency Provider Active Dr. Andres Maurer DO Admit Provider, Attending Pr ovider Active Team Status: Active Member Role Status Dates Dr. Gerardo García MD Primary Care Provider Active Dr. Altaf Villa MD Emergency Provider Active Dr. Andres Maurer DO Admit Provider , Attending Provider, Other Provider Active Dr. Ky Goddard MD Other Provider Active Team Status: Active Member Role Status Dates Dr. Gerardo García MD Primary Care Provider Active Dr. Altaf Villa MD Emergency Provider Active Dr. Andres Maurer DO Admit Provider , Attending Provider, Other Provider Active Dr. Ky Goddard MD Other Provider Active Dr. Joshua Strickland MD Other Provider Active Team Status: Active Member Role Status Dates Dr. Gerardo García MD Primary Care Provider Active Dr. Altaf Villa MD Emergency Provider Active Dr. Andres Maurer DO Admit Provider, Other Provid er Active Dr. Ky Goddard MD Other Provider Active Dr. Joshua Strickland MD Other Provider Active Dr. Alivia Mcrae MD Attending Provider, Other Prov ider Active Team Status: Active Member Role Status Dates Dr. Gerardo Garcaí MD Primary Care Provider Active Dr. Altaf Villa MD Emergency Provider Active Dr. Andres Maurer DO Admit Provider, Other Provid er Active Dr. Ky Goddard MD Other Provider Active Dr. Joshua Strickland MD Other Provider Active Dr. Rafa Lofton DO Attending Provider, Other Provid er Active Dr. Alivia Mcrae MD Other Provider Active Team Status: Inactive Member Role Status Dates Dr. Gerardo García MD Primary Care Provider Active Dr. Altaf Villa MD Emergency Provider Active Dr. Andres Maurer DO Admit Provider, Other Provid er Active Dr. Ky Goddard MD Other Provider Active Dr. Joshua Strickland MD Other Provider Active Dr. Rafa Lofton DO Attending Provider Active Dr. Alivia Mcrae MD Other Provider Active Team Status: Active Member Role Status Dates Dr. Gerardo García MD Primary Care Provider Active Dr. Kassy Mitchell MD Attending Provider Active Team Status: Inactive Member Role Status Dates Dr. Gerardo García MD Primary Care Provider Active Dr. Carlene Bower MD Emergency Provider Active City Editor Relationship Specialty Start Date End Date Gerardo García Chi [address] [place] [id number] PCP - General Gerontology 10/22/14 Luz Maria Matthews MD [address] [place] [address] Referring Gastroenterology 07/25/19 Team Status: Inactive Member Role Status Dates Dr. Gerardo García MD Primary Care Provider Active Dr. Carlene Bower MD Attending Provider, Emergency Provider Active Team Status: Inactive Member Role Status Dates Dr. Gerardo García MD Primary Care Provider Active Dr. Luz Maria Matthews DO Attending Provider Active Team Status: Inactive Member Role Status Dates Dr. Gerardo García MD Primary Care Provider Active Dr. Rafa Glynn DO Emergency Provider Active Team Status: Active Member Role Status Dates Dr. Gerardo García MD Primary Care Provider Active Dr. South Gutiérrez MD Emergency Provider Active Dr. Andres Maurer DO Admit Provider, Attending Pr ovider Active Team Status: Active Member Role Status Dates Dr. Gerardo García MD Primary Care Provider Active Dr. South Gutiérrez MD Emergency Provider Active Dr. Andres Maurer DO Admit Provider, Other Provid er Active Dr. Rafa Lofton DO Attending Provider, Other Provid er Active Team Status: Inactive Member Role Status Dates Dr. Gerardo García MD Primary Care Provider Active Dr. Rafa Glynn DO Attending Provider, Emergency P fredy Active Team Status: Inactive Member Role Status Dates Dr. Gerardo García MD Primary Care Provider Active Dr. South Gutiérrez MD Emergency Provider Active Dr. Andres Maurer DO Admit Provider, Other Provid er Active Dr. Rafa Lofton DO Attending Provider Active City Editor Relationship Specialty Start Date End Date Gerardo García Chi [address] [place], [place] [id number] PCP - General Gerontology 10/22/14 José Manuel Murrell MD [address] [place] [address] Referring 11/23/23 José Manuel Murrell MD [address] [place] [address] Home Care Provider 11/23/23 Jin Antonio MD [address] [address] Consulting Urology 12/04/23 City Editor Relationship Specialty Start Date End Date Gerardo García Chi [address] [place], [place] [address] PCP - General Gerontology 10/22/14 José Manuel Murrell MD [address] [place] [address] Referring 11/23/23 José Manuel Murrell MD [address] [place] [address] Home Care Provider 11/23/23 Jin Antonio MD [address] [place] [id number] Consulting Urology 12/04/23 City Editor Relationship Specialty Start Date End Date Gerardo García Chi [address] [place], [place] [id number] PCP - General Gerontology 10/22/14 José Manuel Murrell MD [address] [place] [address] Referring 11/23/23 José Manuel Murrell MD [address] [place] [address] Home Care Provider 11/23/23 Jin Antonio MD [address] [place] [address] Consulting Urology 12/21/23 City Editor Relationship Specialty Start Date End Date Gerardo García Caio [address] [place], [place] [address] PCP - General Gerontology 10/22/14 José Manuel Murrell MD [address] [place] [address] Referring 11/23/23 José Manuel Murrell MD [address] [place] [address] Home Care Provider 11/23/23 Jin Antonio MD [address] [place] [address] Consulting Urology 12/21/23 City Editor Relationship Specialty Start Date End Date Gerardo García Chi [address] [place], [place] [id number] PCP - General Gerontology 10/22/14 José Manuel Murrell MD [address] [place] [address] Referring 11/23/23 José Manuel Murrell MD [address] [place] [address] Home Care Provider 11/23/23 Jin Antonio MD [address] [place] [address] Consulting Urology 12/21/23 City Editor Relationship Specialty Start Date End Date Gerardo García Chi [address] [place] [address] PCP - General Gerontology 10/22/14 José Manuel Murrell MD [address] [place] [address] Referring 11/23/23 José Manuel Murrell MD [address] [place] [address] Home Care Provider 11/23/23 Jin Antonio MD [address] [place] [id number] Consulting Urology 12/21/23 City Editor Relationship Specialty Start Date End Date Gerardo García [address] [email or web address] [address] [place], [place] [id number] PCP - General Gerontology 10/22/14 José Manuel Murrell MD [address] [place] [id number] Referring 11/23/23 José Manuel Murrell MD [address] [place] [address] Home Care Provider 11/23/23 Jin Antonio MD [address] [address] Consulting Urology 12/21/23 City Editor Relationship Specialty Start Date End Date Gerardo García [address] [address] PCP - General Gerontology 10/22/14 José Manuel Murrell MD [address] [place] [address] Referring 11/23/23 José Manuel Murrell MD [address] [place] [address] Home Care Provider 11/23/23 Jin Antonio MD [address] [facility] [[email or web address]] [address] [place] [address] Consulting Urology 12/21/23 City Editor Relationship Specialty Start Date End Date Gerardo García Chi [address] [place] [address] PCP - General Gerontology 10/22/14 José Manuel Murrell MD [address] [place] [address] Referring 11/23/23 José Manuel Murrell MD [address] [place] [address] Home Care Provider 11/23/23 Jin Antonio MD [address] [address] Consulting Urology 12/21/23 City Editor Relationship Specialty Start Date End Date Gerardo García Chi [address] [facility] [[email or web address]] [address] [place] [address] PCP - General Gerontology 10/22/14 José Manuel Murrell MD [address] [place] [address] Referring 11/23/23 José Manuel Murrell MD [address] [place] [address] Home Care Provider 11/23/23 Jin Antonio MD [address] [place] [address] Consulting Urology 12/21/23 Team Status: Inactive Member Role Status Dates Dr. Gerardo García MD Primary Care Provider Active Dr. Brian Mckee DO Attending Provide r, Referring Provider, Emergency Provider Active City Editor Relationship Specialty Start Date End Date Gerardo García Chi [address] [place], [place] [address] PCP - General Gerontology 10/22/14 José Manuel Murrell MD [address] [place] [address] Referring 11/23/23 José Manuel Murrell MD [address] [place] [address] Home Care Provider 11/23/23 Jin Antonio MD [address] [facility] [place] [address] Consulting Urology 12/21/23 City Editor Relationship Specialty Start Date End Date Gerardo García Chi [address] [place], [place] [address] PCP - General Gerontology 10/22/14 José Manuel Murrell MD [address] [place] [address] Referring 11/23/23 José Manuel Murrell MD [address] [place] [address] Home Care Provider 11/23/23 Jin Antonio MD [address] [place] [address] Consulting Urology 12/21/23 Team Status: Active Member Role Status Dates Dr. Gerardo García MD Primary Care Provider Active Dr. Altaf Villa MD Emergency Provider Active Dr. Andres Maurer DO Admit Provider , Attending Provider, Referring Provider Active Team Status: Active Member Role Status Dates Dr. Gerardo García MD Primary Care Provider Active Dr. Altaf Villa MD Emergency Provider Active Dr. Andres Maurer , Admit Provider , Referring Provider, Other Provider Active Dr. Julianna Matthews DO Attending Provider, Other Provide r Active Team Status: Inactive Member Role Status Dates Dr. Gerardo García MD Primary Care Provider Active Dr. Altaf Villa MD Emergency Provider Active Dr. Andres Maurer DO Admit Provider , Referring Provider, Other Provider Active Dr. Julianna Matthews DO Attending Provider Active City Editor Relationship Specialty Start Date End Date [address] [facility] [address] [place], [place] [address] PCP - General Gerontology 10/22/14 José Manuel Murrell MD [address] [place] [address] Referring 11/23/23 José Manuel Murrell MD [address] [place] [address] Home Care Provider 11/23/23 Jin Antonio MD [address] [address] Consulting Urology 12/21/23 City Editor Relationship Specialty Start Date End Date Gerardo García Chi [address] [facility] [address] [place], [place] [id number] PCP - General Gerontology 10/22/14 José Manuel Murrell MD [address] [place] [address] Referring 11/23/23 José Manuel Murrell MD [address] [place] [address] Home Care Provider 11/23/23 Jin Antonio MD [address] [facility] [[email or web address]] [address] [place] [address] Consulting Urology 12/21/23 City Editor Relationship Specialty Start Date End Date Gerardo García Chi [address] [place], [place] [address] PCP - General Gerontology 10/22/14 José Manuel Murrell MD [address] [place] [address] Referring 11/23/23 José Manuel Murrell MD [address] [place] [address] Home Care Provider 11/23/23 Jin Antonio MD [address] [place] [address] Consulting Urology 12/21/23 City Editor Relationship Specialty Start Date End Date Gerardo García Chi [address] [place] [address] PCP - General Gerontology 10/22/14 José Manuel Murrell MD [address] [place] [address] Referring 11/23/23 José Manuel Murrell MD [address] [place] [address] Home Care Provider 11/23/23 Jin Antonio MD [address] [place] [address] Consulting Urology 12/21/23 Team Status: Active Member Role Status Dates Dr. Gerardo García MD Primary Care Provider Active Dr. Altaf Villa MD Emergency Provider Active Dr. Andres Maurer , Admit Provider, Other Provid er Active Dr. Julianna Matthews , Attending Provider, Other Provide r Active City Editor Relationship Specialty Start Date End Date Gerardo García Chi [address] [place] [address] PCP - General Gerontology 10/22/14 José Manuel Murrell MD [address] [place] [address] Referring 11/23/23 José Manuel Murrell MD [address] [place] [address] Home Care Provider 11/23/23 Jin Antonio MD [address] [place] [address] Consulting Urology 12/21/23 City Editor Relationship Specialty Start Date End Date Gerardo García Chi [address] [place], [place] [id number] PCP - General Gerontology 10/22/14 José Manuel Murrell MD [address] [place] [address] Referring 11/23/23 José Manuel Murrell MD [address] [place] [address] Home Care Provider 11/23/23 Jin Antonio MD [address] [facility] [[email or web address] [address] [place] [address] Consulting Urology 12/21/23 City Editor Relationship Specialty Start Date End Date Gerardo García Chi [address] [place], [place] [address] PCP - General Gerontology 10/22/14 José Manuel Murrell MD [address] [place] [address] Referring 11/23/23 José Manuel Murrell MD [address] [place] [address] Home Care Provider 11/23/23 Jin Antonio MD [address] [place], [place] [address] [address] Consulting Urology 12/21/23 City Editor Relationship Specialty Start Date End Date Gerardo Gacría Chi [address] [place] [address] PCP - General Gerontology 10/22/14 José Manuel Murrell MD [address] [place] [address] Referring 11/23/23 José Manuel Murrell MD [address] [place] [address] Home Care Provider 11/23/23 Jin Antonio MD [address] [place], [place] [address] [address] Consulting Urology 12/21/23 City Editor Relationship Specialty Start Date End Date Gerardo García Chi [address] [place] [address] PCP - General Gerontology 10/22/14 José Manuel Murrell MD [address] [place] [address] Referring 11/23/23 José Manuel Murrell MD [address] [place] [address] Home Care Provider 11/23/23 Jin Antonio MD [address] [place] [address] Consulting Urology 12/21/23 City Editor Relationship Specialty Start Date End Date Gerardo García Chi [address] [place] [address] PCP - General Gerontology 10/22/14 José Manuel Murrell MD [address] [place] [address] Referring 11/23/23 José Manuel Murrell MD [address] [place] [address] Home Care Provider 11/23/23 Jin Antonio MD [address] [place] [address] Consulting Urology 12/21/23 City Editor Relationship Specialty Start Date End Date Gerardo García [address] [place], [place] [address] PCP - General Gerontology 10/22/14 José Manuel Murrell MD [address] [place] [address] Referring 11/23/23 José Manuel Murrell MD [address] [place] [address] Home Care Provider 11/23/23 Jin Antonio MD [address] [place] [address], [place] [address] Consulting Urology 12/21/23 City Editor Relationship Specialty Start Date End Date Gerardo García Chi [address] [place] [address] PCP - General Gerontology 10/22/14 José Manuel Murrell MD [address] [place] [address] Referring 11/23/23 José Manuel Murrell MD [address] [place] [address] Home Care Provider 11/23/23 Jin Antonio MD [address] [address] Consulting Urology 12/21/23 City Editor Relationship Specialty Start Date End Date Gerardo García Chi [address] [facility] [address] [place] [address] PCP - General Gerontology 10/22/14 José Manuel Murrell MD [address] [place] [address] Referring 11/23/23 José Manuel Murrell MD [address] [place], [place] [address] Home Care Provider 11/23/23 Jin Antonio MD [address] [address] Consulting Urology 12/21/23 City Editor Relationship Specialty Start Date End Date Gerardo García Chi [address] [facility] [[email or web address]] [address] [place] [address] PCP - General Gerontology 10/22/14 José Manuel Murrell MD [address] [place] [address] Referring 11/23/23 José Manuel Murrell MD [address] [place] [address] Home Care Provider 11/23/23 Jin Antonio MD [address] [place] [address] Consulting Urology 12/21/23 City Editor Relationship Specialty Start Date End Date Gerardo García Chi [address] [place], [place] [address] PCP - General Gerontology 10/22/14 José Manuel Murrell MD [address] [place] [address] Referring 11/23/23 José Manuel Murrell MD [address] [place] [address] Home Care Provider 11/23/23 Jin Antonio MD [address] [place] [address] Consulting Urology 12/21/23 City Editor Relationship Specialty Start Date End Date Gerardo García Chi [address] [facility] [[email or web address]] [address] [place] [address] PCP - General Gerontology 10/22/14 José Manuel Murrell MD [address] [place] [address] Referring 11/23/23 José Manuel Murrell MD [address] [place] [address] Home Care Provider 11/23/23 Jin Antonio MD [address] [place] [address] Consulting Urology 12/21/23 City Editor Relationship Specialty Start Date End Date Ricky Gerardo Rojas [address] [address] PCP - General Gerontology 10/22/14 José Manuel Murrell MD [address] [place] [address] Referring 11/23/23 José Manuel Murrell MD [address] [place] [address] Home Care Provider 11/23/23 Jin Antonio MD [address] [address] Consulting Urology 12/21/23 Team Status: Active Member Role Status Dates Dr. Gerardo García MD Primary Care Provider Active Team Status: Inactive Member Role Status Dates Dr. Gerardo García MD Primary Care Provider Active Start: October 27, 2024 End: October 27, 2024 Dr. Gerardo García MD Attending Provider Active Start: October 27, 2024 End: October 27, 2024 Team Status: Inactive Member Role Status Dates Dr. Gerardo García MD Primary Care Provider Active Start: November 03, 2024 End: November 03, 2024 Dr. Gerardo García MD Attending Provider Active Start: November 03, 2024 End: November 03, 2024 Team Status: Inactive Member Role Status Dates Dr. Gerardo García MD Primary Care Provider Active Start: January 07, 2025 End: January 07, 2025 Dr. Hunter Olvera MD Attending Provider Active S tart: January 07, 2025 End: January 07, 2025 Dr. Hunter Olvera MD Referring Provider Active S tart: January 07, 2025 End: January 07, 2025 Team Status: Inactive Member Role Status Dates Dr. Gerardo García MD Primary Care Provider Active Start: February 02, 2025 End: February 02, 2025 Dr. Gerardo García MD Attending Provider Active Start: February 02, 2025 End: February 02, 2025 Team Status: Inactive Member Role Status Dates Dr. Gerardo García MD Primary Care Provider Active Start: March 03, 2025 End: March 03, 2025 Dr. Gerardo García MD Referring Provider Active Start: March 03, 2025 End: March 03, 2025 YISSEL Mcnulty Attending Provider Active Star t: March 03, 2025 End: March 03, 2025 Team Status: Inactive Member Role Status Dates Dr. Gerardo García MD Primary Care Provider Active Start: March 20, 2025 End: March 20, 2025 Dr. Gerardo García MD Attending Provider Active Start: March 20, 2025 End: March 20, 2025 Dr. Gerardo García MD Referring Provider Active Start: March 20, 2025 End: March 20, 2025 Team Status: Inactive Member Role Status Dates Dr. Gerardo García MD Primary Care Provider Active Start: April 15, 2025 End: April 15, 2025 Dr. Luz Maria Matthews DO Attending Provider Active Start: April 15, 2025 End: April 15, 2025 Dr. Luz Maria Matthews DO Referring Provider Active Start: April 15, 2025 End: April 15, 2025 City Editor Relationship Specialty Start Date End Date Gerardo García Chi [address] [place] [address] PCP - General Gerontology 10/22/14 José Manuel Murrell MD [address] [place] [address] Referring 11/23/23 José Manuel Murrell MD [address] [place] [address] Home Care Provider 11/23/23 Jin Antonio MD [address] [facility] [[email or web address]] [address] [place] [address] Consulting Urology 12/21/23 City Editor Relationship Specialty Start Date End Date Gerardo García Chi [address] [facility] [[email or web address]] [address] [place] [address] PCP - General Gerontology 10/22/14 José Manuel Murrell MD [address] [place] [address] Referring 11/23/23 José Manuel Murrell MD [address] [place] [address] Home Care Provider 11/23/23 Jin Antonio MD [address] [facility] [[email or web address]] [address] [place] [address] Consulting Urology 12/21/23 Team Status: Active Member Role/Relationship Status Dates Dr. Gerardo García MD Primary Care Provider Active Team Status: Inactive Member Role/Relationship Status Dates Dr. Gerardo García MD Primary Care Provider Active Start: March 20, 2025 End: March 20, 2025 Dr. Gerardo García MD Attending Provider Active Start: March 20, 2025 End: March 20, 2025 Dr. Gerardo García MD Referring Provider Active Start: March 20, 2025 End: March 20, 2025 Team Status: Inactive Member Role/Relationship Status Dates Dr. Gerardo García MD Primary Care Provider Active Start: April 15, 2025 End: April 15, 2025 Dr. Luz Maria Matthews DO Attending Provider Active Start: April 15, 2025 End: April 15, 2025 Dr. Luz Maria Matthews DO Referring Provider Active Start: April 15, 2025 End: April 15, 2025 Team Status: Inactive Member Role/Relationship Status Dates Dr. Gerardo García MD Primary Care Provider Active Start: July 06, 2025 End: July 06, 2025 Dr. Gerardo García MD Attending Provider Active Start: July 06, 2025 End: July 06, 2025 Team Status: Active Member Role/Relationship Status Dates Dr. Gerardo García MD Primary care physician Active Team Status: Inactive Member Role/Relationship Status Dates Dr. Gerardo García MD Primary care physician Active Start: July 06, 2025 End: July 06, 2025 Dr. Gerardo García MD Attending physician Active Start: July 06, 2025 End: July 06, 2025 Team Status: Inactive Member Role/Relationship Status Dates Dr. Gerardo García MD Primary care physician Active Start: August 03, 2025 End: August 03, 2025 Dr. Gerardo García MD Attending physician Active Start: August 03, 2025 End: August 03, 2025 Source Comments (unrecognize d section and content) In the event this informatio n is protected by the Federal Confidentiality of Alcohol and Drug Abuse Patient Records regulations: The Federal rules restrict any use of the information to criminally investigate or prosecute any alcohol or drug abuse patient.[facility] Center[facility] the event this information is protected by the Federal Confidentiality of Alcohol and Drug Abuse Patient Records regulations: The Federal rules restrict any use of the information to criminally investigate or prosecute any alcohol or drug abuse patient.[facility] CenterIn the event this information is protected by the Federal Confidentiality of Alcohol and Drug Abuse Patient Records regulations: The Federal rules restrict any use of the information to criminally investigate or prosecute any alcohol or drug abuse patient.[facility] CenterIn the event this information is protected by the Federal Confidentiality of Alcohol and Drug Abuse Patient Records regulations: The Federal rules restrict any use of the information to criminally investigate or prosecute any alcohol or drug abuse patient.[facility] CenterIn the event this information is protected by the Federal Confidentiality of Alcohol and Drug Abuse Patient Records regulations: The Federal rules restrict any use of the information to criminally investigate or prosecute any alcohol or drug abuse patient.[facility] CenterIn the event this information is protected by the Federal Confidentiality of Alcohol and Drug Abuse Patient Records regulations: The Federal rules restrict any use of the information to criminally investigate or prosecute any alcohol or drug abuse patient.[facility] the event this information is protected by the Federal Confidentiality of Alcohol and Drug Abuse Patient Records regulations: The Federal rules restrict any use of the information to criminally investigate or prosecute any alcohol or drug abuse patient.[facility] CenterIn the event this information is protected by the Federal Confidentiality of Alcohol and Drug Abuse Patient Records regulations: The Federal rules restrict any use of the information to criminally investigate or prosecute any alcohol or drug abuse patient.[facility] CenterIn the event this information is protected by the Federal Confidentiality of Alcohol and Drug Abuse Patient Records regulations: The Federal rules restrict any use of the information to criminally investigate or prosecute any alcohol or drug abuse patient.[facility] CenterIn the event this information is protected by the Federal Confidentiality of Alcohol and Drug Abuse Patient Records regulations: The Federal rules restrict any use of the information to criminally investigate or prosecute any alcohol or drug abuse patient.[facility] CenterIn the event this information is protected by the Federal Confidentiality of Alcohol and Drug Abuse Patient Records regulations: The Federal rules restrict any use of the information to criminally investigate or prosecute any alcohol or drug abuse patient.[facility] CenterIn the event this information is protected by the Federal Confidentiality of Alcohol and Drug Abuse Patient Records regulations: The Federal rules restrict any use of the information to criminally investigate or prosecute any alcohol or drug abuse patient.[facility] CenterIn the event this information is protected by the Federal Confidentiality of Alcohol and Drug Abuse Patient Records regulations: The Federal rules restrict any use of the information to criminally investigate or prosecute any alcohol or drug abuse patient.[facility] CenterIn the event this information is protected by the Federal Confidentiality of Alcohol and Drug Abuse Patient Records regulations: The Federal rules restrict any use of the information to criminally investigate or prosecute any alcohol or drug abuse patient.[facility] CenterIn the event this information is protected by the Federal Confidentiality of Alcohol and Drug Abuse Patient Records regulations: The Federal rules restrict any use of the information to criminally investigate or prosecute any alcohol or drug abuse patient.[facility] CenterIn the event this information is protected by the Federal Confidentiality of Alcohol and Drug Abuse Patient Records regulations: The Federal rules restrict any use of the information to criminally investigate or prosecute any alcohol or drug abuse patient.[facility] CenterIn the event this information is protected by the Federal Confidentiality of Alcohol and Drug Abuse Patient Records regulations: The Federal rules restrict any use of the information to criminally investigate or prosecute any alcohol or drug abuse patient.[facility] CenterIn the event this information is protected by the Federal Confidentiality of Alcohol and Drug Abuse Patient Records regulations: The Federal rules restrict any use of the information to criminally investigate or prosecute any alcohol or drug abuse patient.[facility] CenterIn the event this information is protected by the Federal Confidentiality of Alcohol and Drug Abuse Patient Records regulations: The Federal rules restrict any use of the information to criminally investigate or prosecute any alcohol or drug abuse patient.[facility] CenterIn the event this information is protected by the Federal Confidentiality of Alcohol and Drug Abuse Patient Records regulations: The Federal rules restrict any use of the information to criminally investigate or prosecute any alcohol or drug abuse patient.[facility] CenterIn the event this information is protected by the Federal Confidentiality of Alcohol and Drug Abuse Patient Records regulations: The Federal rules restrict any use of the information to criminally investigate or prosecute any alcohol or drug abuse patient.[facility] CenterIn the event this information is protected by the Federal Confidentiality of Alcohol and Drug Abuse Patient Records regulations: The Federal rules restrict any use of the information to criminally investigate or prosecute any alcohol or drug abuse patient.[facility] CenterIn the event this information is protected by the Federal Confidentiality of Alcohol and Drug Abuse Patient Records regulations: The Federal rules restrict any use of the information to criminally investigate or prosecute any alcohol or drug abuse patient.[facility] CenterIn the event this information is protected by the Federal Confidentiality of Alcohol and Drug Abuse Patient Records regulations: The Federal rules restrict any use of the information to criminally investigate or prosecute any alcohol or drug abuse patient.[facility] CenterIn the event this information is protected by the Federal Confidentiality of Alcohol and Drug Abuse Patient Records regulations: The Federal rules restrict any use of the information to criminally investigate or prosecute any alcohol or drug abuse patient.[facility] CenterIn the event this information is protected by the Federal Confidentiality of Alcohol and Drug Abuse Patient Records regulations: The Federal rules restrict any use of the information to criminally investigate or prosecute any alcohol or drug abuse patient.[facility] CenterIn the event this information is protected by the Federal Confidentiality of Alcohol and Drug Abuse Patient Records regulations: The Federal rules restrict any use of the information to criminally investigate or prosecute any alcohol or drug abuse patient.[facility] CenterIn the event this information is protected by the Federal Confidentiality of Alcohol and Drug Abuse Patient Records regulations: The Federal rules restrict any use of the information to criminally investigate or prosecute any alcohol or drug abuse patient.[facility] CenterIn the event this information is protected by the Federal Confidentiality of Alcohol and Drug Abuse Patient Records regulations: The Federal rules restrict any use of the information to criminally investigate or prosecute any alcohol or drug abuse patient.[facility] CenterIn the event this information is protected by the Federal Confidentiality of Alcohol and Drug Abuse Patient Records regulations: The Federal rules restrict any use of the information to criminally investigate or prosecute any alcohol or drug abuse patient.[facility] CenterIn the event this information is protected by the Federal Confidentiality of Alcohol and Drug Abuse Patient Records regulations: The Federal rules restrict any use of the information to criminally investigate or prosecute any alcohol or drug abuse patient.[facility] CenterIn the event this information is protected by the Federal Confidentiality of Alcohol and Drug Abuse Patient Records regulations: The Federal rules restrict any use of the information to criminally investigate or prosecute any alcohol or drug abuse patient.[facility] CenterIn the event this information is protected by the Federal Confidentiality of Alcohol and Drug Abuse Patient Records regulations: The Federal rules restrict any use of the information to criminally investigate or prosecute any alcohol or drug abuse patient.[facility] CenterIn the event this information is protected by the Federal Confidentiality of Alcohol and Drug Abuse Patient Records regulations: The Federal rules restrict any use of the information to criminally investigate or prosecute any alcohol or drug abuse patient.[facility] Center[facility] the event this information is protected by the Federal Confidentiality of Alcohol and Drug Abuse Patient Records regulations: The Federal rules restrict any use of the information to criminally investigate or prosecute any alcohol or drug abuse patient.[facility] CenterIn the event this information is protected by the Federal Confidentiality of Alcohol and Drug Abuse Patient Records regulations: The Federal rules restrict any use of the information to criminally investigate or prosecute any alcohol or drug abuse patient.[facility] CenterIn the event this information is protected by the Federal Confidentiality of Alcohol and Drug Abuse Patient Records regulations: The Federal rules restrict any use of the information to criminally investigate or prosecute any alcohol or drug abuse patient.[facility] CenterIn the event this information is protected by the Federal Confidentiality of Alcohol and Drug Abuse Patient Records regulations: The Federal rules restrict any use of the information to criminally investigate or prosecute any alcohol or drug abuse patient.[facility] CenterIn the event this information is protected by the Federal Confidentiality of Alcohol and Drug Abuse Patient Records regulations: The Federal rules restrict any use of the information to criminally investigate or prosecute any alcohol or drug abuse patient.[facility] CenterIn the event this information is protected by the Federal Confidentiality of Alcohol and Drug Abuse Patient Records regulations: The Federal rules restrict any use of the information to criminally investigate or prosecute any alcohol or drug abuse patient.[facility] CenterIn the event this information is protected by the Federal Confidentiality of Alcohol and Drug Abuse Patient Records regulations: The Federal rules restrict any use of the information to criminally investigate or prosecute any alcohol or drug abuse patient.[facility] Reason for Visit (unrecogniz ed section and content) Reason Comments Stent Reason Comments Home Care Drainage from right nephrostomy tube site, HTN Specialty Diagnoses / Procedures Referred By Tessie raphael Referred To Contact [facility] Home Care [address] [place] [address] Referral ID Status Reason Start Date Expiration Date Visits Re quested Visits Authorized [id number] 1 1 Reason Comments Patient Question Reason Comments Follow Up Reason Comments Surgery Reason Comments Post Op Stents placed Reason Comments Appointment Reason Comments Orders Reason Comments Orders Patient Update Specialty Diagnoses / Procedures Referred By Tessie raphael Referred To Contact Diagnoses Hydronephrosis, unspecified hydronephrosis type Procedures PLMT NEPHROSTOMY CATH PRQ NEW ACCESS RS&I PERC PLACEMENT NEPHROSTOMY CATH,INCLUDING DIAGNOSTIC NEPHROSTOGRAM/URETEROGRAM WHEN PERFORMED,IMAGING GUIDANCE AND ALL ASSOCIATED RAD S&I Mr Interventional Radiology [address] [place], [place] [address] [address] Referral ID Status Reason Start Date Expiration Date Visits Re quested Visits Authorized [id number] 1 1 Specialty Diagnoses / Procedures Referred By Tessie raphael Referred To Contact Diagnoses Hydronephrosis, unspecified hydronephrosis type Procedures EXCHANGE NEPHROSTOMY CATHETER PRQ W/IMG GID RS&I PERC EXCHANGE NEPHROSTOMY CATH, INCLUDING DIAGNOSTIC NEPHROSTOGRAM/URETEROGRAM WHEN PERFORMED,IMAGING GUIDANCE AND ALL ASSOCIATED RAD S&I Mr Interventional Radiology [facility] [place] [address] Referral ID Status Reason Start Date Expiration Date Visits Re quested Visits Authorized [id number] 1 1 Reason Onset Date Comments 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 Set up for L NT reinsertion Referral ID Status Reason Start Date Expiration Date Visits Re quested Visits Authorized [id number] 1 1 Reason Comments Follow Up Hydronephrosis Reason Comments Hydronephrosis Post op stent remova l Reason Comments Ios Programmer - Other Nephrostomy tub e supplies Specialty Diagnoses / Procedures Referred By Contac t Referred To Contact Diagnoses Other hydronephrosis Other hydronephrosis [N13.39] Procedures EXCHANGE NEPHROSTOMY CATHETER PRQ W/IMG GID RS&I PERC EXCHANGE NEPHROSTOMY CATH, INCLUDING DIAGNOSTIC NEPHROSTOGRAM/URETEROGRAM WHEN PERFORMED,IMAGING GUIDANCE AND ALL ASSOCIATED RAD S&I Mr Interventional Radiology [address] [place] [address] Referral ID Status Reason Start Date Expiration Date Visits Re quested Visits Authorized [id number] 1 1 Reason Comments Hydronephrosis Left neph tube repla elias 12/05/2024 Reason Comments Follow Up Pt says she has pull ed out left tube in back Reason Comments Patient Update Inactive Administered Medications - up to 3 most recent administrations Administered Medications (un recognized section and content) Medication Order MAR Action Action Date Dose Rate Site lidocaine (PF) 10 mg/mL (1 %) injection (XYLOCAINE) SUBCUTANEOUS, X (OR/PROCEDURE) PRN, Starting on 01/01/24 at 1307, Until Sun01/02/24 at 0303, Intraprocedure Given 01/01/2024 1:07 PM EST 10 mL Back, Right PRN Active and Recently Administ ered Medications (unrecognized section and content) Medication Order 12/30/2023 12/31/2023 01/01/2024 lidocaine (PF) 10 mg/mL (1 %) injection (XYLOCAINE) SUBCUTANEOUS, X (OR/PROCEDURE) PRN, Starting on 01/01/24 at 1307, Until Sun01/02/24 at 0303, Intraprocedure 1307 (Given - Provid er: Jose L Patel MD, - Comment: flank) PRN Medication Order 03/16/2024 03/17/2024 03/18/2024 lidocaine (PF) 10 mg/mL (1 %) injection (XYLOCAINE) (CANCELED) SUBCUTANEOUS, NEEDED, Starting on 03/18/24 at 1546, Until 03/18/24 at 1614, Intraprocedure 1546 (Given - Provid er: Rocío Oliveira MD, )1557 (Given - Provider: Rocío Oliveira MD, ) PRN Medication Order 05/11/2024 05/12/2024 05/13/2024 lidocaine (PF) 10 mg/mL (1 %) injection (XYLOCAINE) (CANCELED) SUBCUTANEOUS, NEEDED, Starting on Sun05/13/24 at 0848, Until Sun05/13/24 at 0905, Intraprocedure 0848 (Given - Provid er: Jona Clark MD)0852 (Canceled Entry - Provider: Jona Clark MD) Scheduled Medication Order 06/14/2024 06/15/2024 06/16/2024 sodium chloride 0.9 % (flush) 10 mL (BD POSIFLUSH) 10 mL, OTHER, EVERY 24 HOURS, First dose on Sun06/16/24 at 1500, Until Discontinued, For catheter/tube flush. Site: Nephrostomy tube - LEFT 1500 (Due) sodium chloride 0.9 % (flush) 5-10 mL (BD POSIFLUSH) 5-10 mL, OTHER, EVERY 24 HOURS, First dose on Sun06/16/24 at 1500, Until Discontinued, For catheter/tube flush. Site: Nephrostomy tube - RIGHT 1500 (Due) PRN Medication Order 06/14/2024 06/15/2024 06/16/2024 lidocaine (PF) 10 mg/mL (1 %) injection (XYLOCAINE) (CANCELED) SUBCUTANEOUS, NEEDED, Starting on Sun06/16/24 at 1043, Until Sun06/16/24 at 1113, Intraprocedure 1043 (Given - Provid er: Geraldo Campbell MD, MD) PRN Medication Order 09/27/2024 09/28/2024 09/29/2024 lidocaine (PF) 10 mg/mL (1 %) injection (XYLOCAINE) (CANCELED) SUBCUTANEOUS, NEEDED, Starting on Sun09/29/24 at 1109, Until Sun09/29/24 at 1129, Intraprocedure 1109 (Given - Provid er: Ghulam Rivera DO - Comment: lower left and right) FOR RECORDS PERTAINING TO PATIENTS WHO ARE [...] BE BASED ON THE PRIMARY CLINICAL RECORDS. [facility] [employer] [facility]. provides no warranty or guarantee of the accuracy or completeness of information in this document.
[2025-09-24 17:55] LABS: Hematocrit 43.9 % (37-47); Hemoglobin 13.7 g/dL (12.0-15.0); Immature Granulocytes Count 0.080 X10^3/uL (0.0-0.0); Mean Corp Hgb Conc 31.2 g/dL (32-36); Mean Corpuscular Volume 88.9 fL (81-99); Mean Platelet Vol. 10.3 fl (6.2-12.0); NRBC Flagged by Analyzer 0 % (0-5); POSITIVE DIFFERENTIAL YES; POSITIVE MORPHOLOGY YES; Platelet Count 313 K/mm3 (150-450); RBC Distribution Width CV 15.8 % (11.6-14.6); RBC Distribution Width SD 51.4 fl (35.1-43.9); Red Blood Count 4.94 M/mm3 (4.2-5.4); White Blood Count 13.1 K/mm3 (4.4-11.0)
[2025-09-24 17:57] LABS: Differential Indicated SCAN CRITERIA MET
[2025-09-24 18:13] LABS: Anion Gap 12 (5-15); BUN 23 mg/dL (4-19); BUN/Creat Ratio 14.0 RATIO (10-20); CPK Total, Creatine Kinase 61 U/L (24-195); Calcium,Total 8.3 mg/dL (7.6-11.0); Carbon Dioxide 23.7 mmol/L (21.0-32.0); Chloride 104 mmol/L (98-108); Glucose 102 mg/dL (70-99); Potassium 4.0 mmol/L (3.3-5.1); Troponin T High Sensitivity 16 ng/L (<=14)
[2025-09-24 19:23] LABS: D-Dimer Quantitative (DVT/PE) 1.03 FEU/ug/m (0.27-0.49)
[2025-09-24 20:48] LABS: Differential Comment SCANNED
[2025-09-25 01:02] LABS: Xtra Tube Kwok EXTRA TUBE
[2025-09-26 04:07] LABS: Myoglobin, Serum 89 ng/mL (25-58)
== END 2025-09-24 23:59 | disposition home or self-care (01) ==
LOC: POLAB3 16:49
PROVIDERS: PCP Family Medicine Geriatric Medicine; Visit Provider Family Medicine Geriatric Medicine
DX: I10 Essential (primary) hypertension (principal); J32.9 Chronic sinusitis, unspecified; J98.8 Other specified respiratory disorders; R05.9 Cough, unspecified; R06.02 Shortness of breath; R06.2 Wheezing
CPT/HCPCS: 36415; 80048; 82550; 83874; 84484; 85025; 85379; 87631

== ENCOUNTER → 2025-09-24 | Outpatient (CLI) | payer MEDICARE, SELFPAY ==
--- NOTE | 2025-09-24 17:08 | RAD_ITS ---
PROCEDURE: CHEST PA AND LATERAL 09/24/2025 REASON FOR EXAM: WHEEZING, AND CONGESTION OF RESPIRTORY TRACT TECHNIQUE: Procedure Code: RADCXR Modality: DX Procedure: CHEST PA AND LATERAL COMPARISON: 09/06/2024. FINDINGS: The heart is enlarged. A loop recorder is present. The lungs are clear. No acute osseous abnormalities. RAD/Chest PA and Lateral IMPRESSION: NO ACUTE FINDINGS. Cardiomegaly. Reading Location: [id number]
--- OUTSIDE RECORDS SUMMARY | 2025-09-24 17:29 | XMS RPT_ITS | CCD ---
Author Organization [facility] Care Team Providers Care Kitchen Lead Name Role Phone MARINA MONTANA (YISSEL-C) Unavailable [...] Provider Latisha, Dr. Campos Attending [facility] Other Provider Unavailable [facility], Dr. Rubio Attending Provider Ricardo, Dr. Rubio [...] Provider Latisha, Dr. Campos Attending Provider [facility] Cam[facility] Other Provider Unavailable [facility], Dr. Rubio Attending Provider Ricardo, Dr. Rubio [...] Unavailabl e Dr. Alivia Mcrae Attending Provider [phone] Dr. Alivia Mcrae Other Provider [phone] [...] Care Provider Luz Maria Matthews MD Unavailable [phone] [place] Emergency Provider Handy CHRISTIAN, José Manuel Unavailable Handy CHRISTIAN, José Manuel Unavailable Jin Antonio MD Unavailable Jin Antonio MD Unavailable GERARDO GARCÍA [facility] Primary Care Unavailable JOSE L PATEL Referring Unavailable JOSE L PATEL Attending Unavailable JSOE L PATEL Admitting Unavailable Dr. Gerardo García [...] Gerardo García Chi Referring Provider Alexandre DEY, PA-Ozzy Harmon Attending Provider Ricky CHRISTIAN, Dr. Gerardo Rojas Primary Care Provider Ricky CHRISTIAN, Dr. Gerardo Rojas Attending Provider [phone] Wade CHRISTIAN, Dr. Harrison Attending Provider Wade CHRISTIAN, Dr. Harrison Referring Provider [phone] Ricky CHRISTIAN, Dr. Gerardo Rojas Primary Care [...] Care Unavailable Ricky, Gerardo Chi Referring Unavailable Cristina Ram Attending Unavailable [...] Drug Allergy 01-04-20 Other: See Comments, Unknown [facility] HMG-CoA Reductase Inhibitors (statins) (1 source) Pravastatin Drug Allergy 01-04-20 15 Intolerance [facility] Sulfonamides (antibiotic) (1 source) Sulfamethoxazole Drug Allergy 01-04-20 15 Shortness of Breath [facility] (20 sources) Pravastatin; Translations: [PRAVASTATIN] Drug Allergy 01-04-20 15 Intolerance, Anaphylaxis [facility] Repository (20 sources) predniSONE; Translations: [PREDNISONE] Drug Allergy 01-04-20 15 Unknown [facility] (20 sources) Sulfamethoxazole; Translations: [SULFAMETHOXAZOLE] Drug Allergy 01-04-20 15 Shortness of Breath [facility] Repository (20 sources) INFLUENZA VIRUS VACCINES; Translations: [INFLUENZA VIRUS VACCINES] Propensity to adverse reactions (disorder) 01-04-20 15 Unknown [facility]ository (20 sources) Clindamycin Drug Allergy 02-15-20 unsure of reaction [facility] Comment on above: She thinks Levaquin or Clindamycin causes trouble breathing & swelling of feet (20 sources) levoFLOXacin Drug Allergy 02-15-20 UNSURE OF REACTION [facility] Comment on above: Pt thinks Levaquin o r Clindamycin cause difficulty breathing & swelling of feet (20 sources) methylPREDNISolone; Translations: [METHYLPREDNISOLONE] Drug Allergy 08-01-20 Other: See Comments [facility] (20 sources) Procaine Drug Allergy 02-15-20 NEEDS FOLLOW-UP [facility] Comment on above: Pt doesn't know (20 sources) Trimethoprim Drug Allergy 02-15-20 Shortness of breath [facility] (20 sources) Yknljcm-Chb-Eds Reductase Inhibitor; Translations: [Jjnwezf-Wxv-Xpi Reductase Inhibitor] Allergy to substance 02-15-20 Anaphylaxis [facility] (4 sources) novacaine Allergy to substance 12-30-19 Unknown [facility] Work Phone: (20 sources) HMG-CoA reductase inhibitor; Translations: [TYDQVLJ-OCR-OBO REDUCTASE INHIBITORS] Drug Allergy 12-07-19 Anaphylaxis [facility] (1 source) Clindamycin Drug Allergy 03-03-20 [facility] Repository (1 source) levoFLOXacin Drug Allergy 03-03-20 [facility] Repository (1 source) methylPREDNISolone Drug Allergy 03-03-20 [facility] Repository (1 source) Procaine Drug Allergy 03-03-20 [facility] Repository (1 source) Trimethoprim Drug Allergy 03-03-20 [facility] Repository Medications Current Medications Medication Drug Class(es) [...] wheezing albuterol sulfate (VENTOLIN INHALATION) Inhale 1 [place] as instructed every 4 hours as needed (wheezing/shortness of breath). 07/12/2015 01/13/2025 Discontinued (Erroneous entry) Start: 07-12-2015 take 1 spray(s) by i nhalation every four hours as needed for wheezing ALBUTEROL SULFATE (VENTOLIN INHALATION) Inhale 1 [place] as instructed every 4 hours as needed (wheezing/shortness of breath). 07/12/2015 Active Start: 07-12-2015 take 1 spray(s) by i nhalation every four hours as needed for wheezing ALBUTEROL SULFATE (VENTOLIN INHALATION) Inhale 1 [place] as instructed every 4 hours as needed (wheezing/shortness of breath). 0 07/12/2015 Suspended Start: 07-12-2015 take 1 spray(s) by i nhalation every four hours as needed for wheezing ALBUTEROL SULFATE (VENTOLIN INHALATION) Inhale 1 [place] as instructed every 4 hours as needed [...] needed ALBUTEROL SULFATE (VENTOLIN INHALATION) Inhale 1 [place] as instructed every 4 hours as needed. 0 Active Comment on above: Inhale 1 [place] as in structed every 4 hours as needed. Inhale 1 [place] as in structed every 4 hours as [...] Active IPRATROPIUM BROM HERMINIO NASAL Use 1 [place] in the nose every morning. Active IPRATROPIUM BROM HERMINIO NASAL Use 1 [place] in the nose every morning. 0 Suspended IPRATROPIUM BROM HERMINIO NASAL Use 1 [place] in the nose every morning. 0 Active Comment on above: Use 1 [place] in the n ose every morning. levothyroxine [...] 1 Inhalation as instructed twice daily. calcitriol 0.64339 mg oral capsule (20 sources) Vitamin D3 [...] Comment on above: Take 1 capsule by [facility] one time only for 1 dose. Take one hour before procedure Take 1 capsule by mo [facility] three times a day for 5 days. [...] Ergocalciferol (Vitamin D2) 50,000 UNIT capsule Discontinued [id number] U PO January 06, 2018 1:00am July [...] 8:30am Start: 09-09-2013 End: 09-10-2013 lactobacillus acidophilus [id number] unt / pectin 100 mg oral tablet (20 sources) Start: 09-04-2020 End: 09-11-2020 take 1 tablet by mouth four times daily Acidophilus-Pectin, [place] 1 TABLET tablet Discontinued 2 {tbl} PO 4 TIMES DAILY 56 7 0 September 04, 2020 12:00am September 10, 2020 12:00am September 11, 2020 12:03am Start: 09-04-2020 End: 09-11-2020 take 2 tablets by mouth four times daily Acidophilus-Pectin, [place] Discontinued 2 TABLET PO 4 TIMES DAILY [...] pseudomonas pyelonephritis weekly bmp, cbc. Fax to [phone] vancomycin 250 mg oral capsule (20 sources) [...] Test Name Value Interpretation Reference Range Facility [id number] 09-01-[id number] [facility] BRIEF OP NOTon 09-01-[address] [facility] IR EXCHANGE NEPH TUBE BILATo n 09-01-2025 IR EXCHANGE NEPH TUBE BILAT [facility] NURSING PROGon 09-01-[address] [facility] NURSING PROGon 08-26-[address] [facility] Absolute lymphocyte countOrd ered By: Gerardo García on 08-03-2025 Lymphocytes Auto (Unsp spec) [#/Vol] 4.85 10*3/uL High 0.83-4.51 [facility] Absolute neutrophil countOrd ered By: Gerardo García on 08-03-2025 Neutrophils (Bld) [#/Vol] 3.4 10*3/uL 2.0-7.7 [facility] Anion gap in Serum or Plasma Ordered By: Gerardo García on 08-03-2025 Anion gap [Moles/Vol] 12 mmol/L 04-02 [facility] Automated lymphocyte count a s percentage of total leukocytesOrdered By: Gerardo García on 08-03-2025 Lymphocytes/100 WBC Auto (Unsp spec) 53.2 % High 19-41 [facility] BUN/creatinine ratioOrdered By: Gerardo Hays08-03-2025 Urea nitrogen/Creatinine [Mass ratio] 10.3 mg/mg 10-20 [facility] Basophil percentageOrdered B y: Gerardo Haysok on 08-03-2025 Basophils/100 WBC (Bld) 0.7 % 0-1 [facility] Bilirubin, totalOrdered By: Gerardo Haysok on 08-03-2025 Bilirubin [Mass/Vol] 0.57 mg/dL 0.00-1.30 [facility] Calculated very low density lipoprotein (VLDL) cholesterol measurementOrdered By: Gerardo García 08-03-2025 Calculated very low density lipoprotein (VLDL) cholesterol measurement 21 mg/dL 5-40 [facility] Carbon dioxide, total [Moles /volume] in Central venous bloodOrdered By: Gerardo García 08-03-2025 CO2 [Moles/Vol] 22.8 mmol/L 21.0-32.0 [facility] Chloride assayOrdered By: Lenny García 08-03-2025 Chloride [Moles/Vol] 105 mmol/L 98-108 [facility] Eosinophil percentageOrdered By: Gerardo Hays08-03-2025 Eosinophils/100 WBC (Bld) 2.0 % 0-5 [facility] Erythrocyte distribution wid th ratioOrdered By: Gerardo García 08-03-2025 Erythrocyte distribution width (RBC) [Ratio] 14.3 % 11.6-14.6 [facility] Erythrocyte distribution wid th standard deviationOrdered By: Gerardo Hays08-03-2025 Erythrocyte distribution width (RBC) [Ratio] 44.7 fl High 35.1-43.9 [facility] Glomerular filtration rate ( GFR) estimation/1.73 sq m using serum, plasma, or whole bOrdered By: Gerardo García 08-03-2025 GFR/1.73 sq M.predicted among non-blacks MDRD (S/P/Bld) [Vol rate/Area] 27 mL/min/{1.73_m2} Low >60 [facility] Comment on above: mL/min/1.73m2 CKD-EP I Creatinine Equation (2020) Hematocrit Auto (Bld) [Volum e fraction]Ordered By: Gerardo García on 08-03-2025 Hematocrit (Bld) [Volume fraction] 40.6 % 37-47 [facility] Hemoglobin measurementOrdere d By: Gerardo García 08-03-2025 Hemoglobin (Bld) [Mass/Vol] 13.2 g/dL 12.0-15.0 [facility] Immature granulocytes/100 WB C Auto (Bld)Ordered By: Gerardo García 08-03-2025 Immature granulocytes/100 WBC (Bld) 0.300 % 0.0-0.9 [facility] Comment on above: IG% - Immature Granu locytes (promyelocytes, myelocytes and metamyelocytes) > 1% indicates that a LEFT SHIFT is Present. LDL calc ser/plasOrdered By: Gerardo García 08-03-2025 Cholesterol in LDL [Mass/Vol] 117 mg/dL [facility] Comment on above: Xwiupexxzr=153-092 m g/dL & Higher Xbay=096 mg/dL or greaterFriedwald Equation for LDL-C Laboratory - Chemistry and C hemistry - challengeOrdered By: Gerardo García 08-03-2025 AST [Catalytic activity/Vol] 18 U/L <32 [facility] MCV (mean corpuscular volume ) determinationOrdered By: Gerardo García 08-03-2025 MCV (RBC) [Entitic vol] 85.8 fL 81-99 [facility] Mean corpuscular hemoglobin (MCH) determinationOrdered By: Gerardo García 08-03-2025 MCH (RBC) [Entitic mass] 27.9 pg 27.0-32.0 [facility] Mean corpuscular hemoglobin concentration (MCHC) determinationOrdered By: Gerardo García 08-03-2025 MCHC (RBC) [Mass/Vol] 32.5 g/dL 32-36 [facility] Mean platelet volume determi nationOrdered By: Gerardo García 08-03-2025 Platelet mean volume (Bld) [Entitic vol] 10.0 fL 6.2-12.0 [facility] Monocyte percentageOrdered B y: Gerardo García on 08-03-2025 Monocytes/100 WBC (Bld) 7.0 % 0-10 [facility] Neutrophil percentageOrdered By: Gerardo García on 08-03-2025 Neutrophils/100 WBC (Bld) 36.8 % Low 47-70 [facility] Nucleated red blood cell per centageOrdered By: Gerardo García on 08-03-2025 Nucleated RBC/100 WBC (Bld) [Ratio] 0 % 0-5 [facility] Platelet countOrdered By: Lenny García on 08-03-2025 Platelets (Bld) [#/Vol] 330 10*3/uL 150-450 [facility] Potassium measurement (mass/ volume)Ordered By: Gerardo García on 08-03-2025 Potassium (Unsp spec) [Mass/Vol] 4.2 mmol/L 3.3-5.1 [facility] RBC Auto (Bld) [#/Vol]Ordere d By: Gerardo García on 08-03-2025 RBC (Bld) [#/Vol] 4.73 10*6/uL 4.2-5.4 [facility] Screening total cholesterol/ high density lipoprotein (HDL) cholesterol ratioOrdered By: Gerardo García on 08-03-2025 Cholesterol.total/Choles terol in HDL [Mass ratio] 4.42 {ratio} [facility] Serum creatinine measurement (mass/volume)Ordered By: Gerardo García on 08-03-2025 Creatinine [Mass/Vol] 1.93 mg/dL High 0.70-1.20 [facility] Serum globulin measurementOr dered By: Gerardo García 08-03-2025 Globulin (S) [Mass/Vol] 4.2 g/dL 2.2-4.2 [facility] Serum glucose measurement (m ass/volume)Ordered By: Gerardo García 08-03-2025 Glucose [Mass/Vol] 108 mg/dL High 70-99 [facility] Serum or plasma alanine masterson otransferase (ALT) measurementOrdered By: Gerardo García 08-03-2025 ALT [Catalytic activity/Vol] 8 U/L <35 [facility] Serum or plasma albumin yunior urement (mass/volume)Ordered By: Gerardo García 08-03-2025 Albumin [Mass/Vol] 3.6 g/dL 3.4-4.8 [facility] Serum or plasma albumin/glob ulin mass ratioOrdered By: Gerardo García 08-03-2025 Albumin/Globulin [Mass ratio] 0.9 {ratio} 0.9-2.4 [facility] Serum or plasma alkaline terry sphatase measurementOrdered By: Gerardo Ricky 08-03-2025 ALP [Catalytic activity/Vol] 151 U/L High 35-104 [facility] Serum or plasma calcium yunior urement (mass/volume)Ordered By: Gerardo García 08-03-2025 Calcium [Mass/Vol] 8.6 mg/dL 7.6-11.0 [facility] Serum or plasma cholesterol in HDL measurement (mass/volume)Ordered By: Gerardo Ricky 08-03-2025 Cholesterol in HDL [Mass/Vol] 40 mg/dL >40 [facility] Comment on above: National Cholesterol Education Program (NCEP) guidelines:<40 mg/dL: Low HDL-cholesterol (major risk factor for CHD)>= 60 mg/dL: High HDL-cholesterol (negative risk factor for CHD)HDL-cholesterol is affected by a number of factors, e.g. smoking, exercise, hormones, sex and age. Serum or plasma cholesterol measurement (mass/volume)Ordered By: Gerardo Haysok 08-03-2025 Cholesterol [Mass/Vol] 178 mg/dL <201 [facility] Comment on above: Cholesterol level, D esirable <200 mg/dLBorderline high cholesterol 200-239 mg/dLHigh cholesterol >=240 mg/dLRecommendations of the NCEP Adult Treatment Panel for the following risk-cutoff thresholds for the [place] population. Serum or plasma urea nitroge n measurement (mass/volume)Ordered By: Gerardo García 08-03-2025 Urea nitrogen [Mass/Vol] 20 mg/dL High 4-19 [facility] Sodium levelOrdered By: Gerardo García 08-03-2025 Sodium [Moles/Vol] 140 mmol/L 133-145 [facility] TSH DL <= 0.005 mIU/L QnOrde red By: Gerardo García 08-03-2025 TSH Qn 2.400 uIU/mL 0.300-4.20 0 [facility] Total proteinOrdered By: Gerardo García on 08-03-2025 Protein [Mass/Vol] 7.8 g/dL 5.9-8.4 [facility] Triglycerides measurementOrd ered By: Gerardo García on 08-03-2025 Triglyceride [Mass/Vol] 105 mg/dL <199 [facility] Comment on above: The drugs N-Acetylcy steine and Metamizole may falsely depress this assay. Normal range: <150 mg/dLBorderline High: 150-199 mg/dLHigh: 200-499 mg/dLVery High: >500 mg/dL White blood cell (WBC) count Ordered By: Gerardo García on 08-03-2025 WBC (Bld) [#/Vol] 9.1 10*3/uL 4.4-11.0 [facility] [id number] 07-09-[id number] [facility] BRIEF OP NOTon 07-09-[address] [facility] HISTORY PHYSICALon HISTORY PHYSICAL [facility] IR EXCHANGE NEPH TUBE BILATo n 07-09-2025 IR EXCHANGE NEPH TUBE BILAT [facility] NURSING PROGon 07-09-2025 [facility]OG [facility] CNPNon 07-08-[address] [facility] NURSING PROGon 07-08-2025 [facility] Absolute lymphocyte countOrd ered By: Gerardo García on 07-06-2025 Lymphocytes Auto (Unsp spec) [#/Vol] 4.76 10*3/uL High 0.83-4.51 [facility] Absolute neutrophil countOrd ered By: Gerardo García on 07-06-2025 Neutrophils (Bld) [#/Vol] 5.7 10*3/uL 2.0-7.7 [facility] Anion gap in Serum or Plasma Ordered By: Gerardo García on 07-06-2025 Anion gap [Moles/Vol] 13 mmol/L 5-15 [facility] Automated lymphocyte count a s percentage of total leukocytesOrdered By: Gerardo García on 07-06-2025 Lymphocytes/100 WBC Auto (Unsp spec) 41.6 % High - [facility] BUN/creatinine ratioOrdered By: Gerardo García on 07-06-2025 Urea nitrogen/Creatinine [Mass ratio] 9.0 mg/mg Low 10-20 [facility] Basophil percentageOrdered B y: Gerardo García on 07-06-2025 Basophils/100 WBC (Bld) 0.6 % 0-1 [facility] Bilirubin Test strip Ql (U)O rdered By: Gerardo García on 07-06-2025 Bilirubin Ql (U) Negative Negative [facility] Carbon dioxide, total [Moles /volume] in Central venous bloodOrdered By: Gerardo García on 07-06-2025 CO2 [Moles/Vol] 22.2 mmol/L 21.0-32.0 [facility] Chloride assayOrdered By: Lenny García on 07-06-2025 Chloride [Moles/Vol] 104 mmol/L 98-108 [facility] Eosinophil percentageOrdered By: Gerardo García 07-06-2025 Eosinophils/100 WBC (Bld) 1.1 % 0-5 [facility] Erythrocyte distribution wid th ratioOrdered By: Gerardo García 07-06-2025 Erythrocyte distribution width (RBC) [Ratio] 14.2 % 11.6-14.6 [facility] Erythrocyte distribution wid th standard deviationOrdered By: Gerardo García 07-06-2025 Erythrocyte distribution width (RBC) [Ratio] 45.7 fl High 35.1-43.9 [facility] Glomerular filtration rate ( GFR) estimation/1.73 sq m using serum, plasma, or whole bOrdered By: Gerardo García 07-06-2025 GFR/1.73 sq M.predicted among non-blacks MDRD (S/P/Bld) [Vol rate/Area] 31 mL/min/{1.73_m2} Low >60 [facility] Comment on above: mL/min/1.73m2 CKD-EP I Creatinine Equation (2020) Hematocrit Auto (Bld) [Volum e fraction]Ordered By: Gerardo Garcaí 07-06-2025 Hematocrit (Bld) [Volume fraction] 41.3 % 37-47 [facility] Hemoglobin measurementOrdere d By: Gerardo García 07-06-2025 Hemoglobin (Bld) [Mass/Vol] 13.4 g/dL 12.0-15.0 [facility] Immature granulocytes/100 WB C Auto (Bld)Ordered By: Gerardo García on 07-06-2025 Immature granulocytes/100 WBC (Bld) 0.600 % 0.0-0.9 [facility] Comment on above: IG% - Immature Granu locytes (promyelocytes, myelocytes and metamyelocytes) > 1% indicates that a LEFT SHIFT is Present. Ketones Test strip Ql (U)Ord ered By: Gerardo García on 07-06-2025 Ketones Ql (U) Negative Negative [facility] MCV (mean corpuscular volume ) determinationOrdered By: Gerardo García on 07-06-2025 MCV (RBC) [Entitic vol] 87.9 fL 81-99 [facility] Mean corpuscular hemoglobin (MCH) determinationOrdered By: Gerardo García 07-06-2025 MCH (RBC) [Entitic mass] 28.5 pg 27.0-32.0 [facility] Mean corpuscular hemoglobin concentration (MCHC) determinationOrdered By: Gerardo García 07-06-2025 MCHC (RBC) [Mass/Vol] 32.4 g/dL 32-36 [facility] Mean platelet volume determi nationOrdered By: Gerardo García 07-06-2025 Platelet mean volume (Bld) [Entitic vol] 11.0 fL 6.2-12.0 [facility] Microscopic analysis of urin e for red blood cells (RBC)Ordered By: Gerardo García 07-06-2025 Microscopic analysis of urine for red blood cells (RBC) 0 SEEN /hpf 0-5 [facility] Monocyte percentageOrdered B y: Gerardo García on 07-06-2025 Monocytes/100 WBC (Bld) 6.5 % 0-10 [facility] Mucus LM Ql (Urine sed)Order ed By: Gerardo García on 07-06-2025 Mucus Ql (Urine sed) 0 SEEN /hpf [facility] Neutrophil percentageOrdered By: Gerardo García on 07-06-2025 Neutrophils/100 WBC (Bld) 49.6 % 47-70 [facility] Nitrite Test strip Ql (U)Ord ered By: Gerardo García on 07-06-2025 Nitrite Ql (U) Negative Negative [facility] Nucleated red blood cell per centageOrdered By: Gerardo García on 07-06-2025 Nucleated RBC/100 WBC (Bld) [Ratio] 0 % 0-5 [facility] Platelet countOrdered By: Lenny García on 07-06-2025 Platelets (Bld) [#/Vol] 304 10*3/uL 150-450 [facility] Potassium measurement (mass/ volume)Ordered By: Gerardo García on 07-06-2025 Potassium (Unsp spec) [Mass/Vol] 4.2 mmol/L 3.3-5.1 [facility] Protein Test strip Ql (U)Ord ered By: Gerardo García on 07-06-2025 Protein Ql (U) 30 mg/dl High Negative [facility] RBC Auto (Bld) [#/Vol]Ordere d By: Gerardo García on 07-06-2025 RBC (Bld) [#/Vol] 4.70 10*6/uL 4.2-5.4 [facility] Serum creatinine measurement (mass/volume)Ordered By: Gerardo García on 07-06-2025 Creatinine [Mass/Vol] 1.74 mg/dL High 0.70-1.20 [facility] Serum glucose measurement (m ass/volume)Ordered By: Gerardo García 07-06-2025 Glucose [Mass/Vol] 82 mg/dL 70-99 [facility] Serum or plasma C reactive p rotein measurement (mass/volume)Ordered By: Gerardo García 07-06-2025 CRP [Mass/Vol] 26.70 mg/L High 0.0-3.0 [facility] Serum or plasma calcium yunior urement (mass/volume)Ordered By: Gerardo García 07-06-2025 Calcium [Mass/Vol] 8.5 mg/dL 7.6-11.0 [facility] Serum or plasma urea nitroge n measurement (mass/volume)Ordered By: Gerardo García 07-06-2025 Urea nitrogen [Mass/Vol] 16 mg/dL 4-19 [facility] Sodium levelOrdered By: Gerardo García 07-06-2025 Sodium [Moles/Vol] 139 mmol/L 133-145 [facility] Squamous epithelial cells de tection in urine sediment by light microscopyOrdered By: Gerardo García on 07-06-2025 Epithelial cells.squamous LM Ql (Urine sed) 0 SEEN /hpf 5-10 [facility] Transitional cells detection in urine sediment by light microscopyOrdered By: Gerardo García on 07-06-2025 Transitional cells LM Ql (Urine sed) 0-5 SEEN /hpf 0-5 [facility] Urine clarityOrdered By: Gerardo García on 07-06-2025 Clarity (U) Sl. Cloudy Clear [facility] Urine color determinationOrd ered By: Gerardo García on 07-06-2025 Color (U) Yellow Yellow [facility] Urine cultureOrdered By: Gerardo Garcaí 07-06-2025 Bacteria identified Cx Nom (U) Pseudomonas aeruginosa#2 Abnormal [facility] Bacteria identified Cx Nom (U) Pseudomonas aeruginosa Abnormal [facility] Bacteria identified Cx Nom (U) Enterococcus faecalis Abnormal [facility] Urine glucose detectionOrder ed By: Gerardo García on 07-06-2025 Glucose Ql (U) Normal mg/dl Normal [facility] Urine leukocyte esterase det ection by dipstickOrdered By: Gerardo García 07-06-2025 Leukocyte esterase Test strip Ql (U) 500 /ul High Negative [facility] Urine pHOrdered By: Gerardo García on 07-06-2025 pH (U) 7.0 [pH] 5.0 - 8.0 [facility] Urine sediment bacteria coun t by microscopy (number/high power field)Ordered By: Gerardo García 07-06-2025 Bacteria LM.HPF (Urine sed) [#/Area] 1 /[HPF] None Seen [facility] Urine specific gravity measu rementOrdered By: Gerardo García on 07-06-2025 Specific gravity (U) [Rel density] 1.005 1.002-1.03 0 [facility] Urine urobilinogen measureme ntOrdered By: Gerardo García 07-06-2025 Urobilinogen Ql (U) Normal mg/dl Normal [facility] White blood cell (WBC) count Ordered By: Gerardo García 07-06-2025 WBC (Bld) [#/Vol] 11.5 10*3/uL High 4.4-11.0 [facility] White blood cell countOrdere d By: Gerardo García on 07-06-2025 White blood cell count 0-5 SEEN /hpf 0-5 [facility] [id number] 06-15-[id number] [facility] ALLIED HEALTHon 06-15-[address] [facility] BRIEF OP NOTon 06-15-[address] [facility] IR EXCHANGE NEPH TUBE BILATo n 06-15-2025 IR EXCHANGE NEPH TUBE BILAT [facility] NURSING PROGon 06-09-[address] [facility] [id number] 04-20-[id number] [facility] BRIEF OP NOTon 04-20-[address] [facility] IR EXCHANGE NEPH TUBE BILATo n 04-20-2025 IR EXCHANGE NEPH TUBE BILAT [facility] IR FLOURO GUID NEEDLE PLCon 04-20-2025 IR FLOURO GUID NEEDLE PLC [facility] NURSING PROGon 04-20-[address] [facility] NURSING PROG [facility] NURSING PROG [facility] NURSING PROGon 04-16-[address] [facility] Anion gap in Serum or Plasma Ordered By: Luz Maria Matthews on 04-15-2025 Anion gap [Moles/Vol] 11 mmol/L 5-15 [facility] BUN/creatinine ratioOrdered By: Luz Maria Matthews on 04-15-2025 Urea nitrogen/Creatinine [Mass ratio] 9.6 mg/mg Low 10-20 [facility] Carbon dioxide, total [Moles /volume] in Central venous bloodOrdered By: Luz Maria Matthews on 04-15-2025 CO2 [Moles/Vol] 25.3 mmol/L 21.0-32.0 [facility] Chloride assayOrdered By: Rashid Matthews on 04-15-2025 Chloride [Moles/Vol] 103 mmol/L 98-108 [facility] Glomerular filtration rate ( GFR) estimation/1.73 sq m using serum, plasma, or whole bOrdered By: Luz Maria Matthews on 04-15-2025 GFR/1.73 sq M.predicted among non-blacks MDRD (S/P/Bld) [Vol rate/Area] 27 mL/min/{1.73_m2} Low >60 [facility] Comment on above: mL/min/1.73m2 CKD-EP I Creatinine Equation (2020) Potassium measurement (mass/ volume)Ordered By: Luz Maria Matthews on 04-15-2025 Potassium (Unsp spec) [Mass/Vol] 4.8 mmol/L 3.3-5.1 [facility] Serum creatinine measurement (mass/volume)Ordered By: Luz Maria Matthews on 04-15-2025 Creatinine [Mass/Vol] 1.95 mg/dL High 0.70-1.20 [facility] Serum glucose measurement (m ass/volume)Ordered By: Luz Maria Matthews on 04-15-2025 Glucose [Mass/Vol] 104 mg/dL High 70-99 [facility] Serum or plasma albumin yunior urement (mass/volume)Ordered By: Luz Maria Matthews on 04-15-2025 Albumin [Mass/Vol] 3.7 g/dL 3.4-4.8 [facility] Serum or plasma calcium yuinor urement (mass/volume)Ordered By: Luz Maria Matthews on 04-15-2025 Calcium [Mass/Vol] 9.3 mg/dL 7.6-11.0 [facility] Serum or plasma urea nitroge n measurement (mass/volume)Ordered By: Luz Maria Matthews on 04-15-2025 Urea nitrogen [Mass/Vol] 19 mg/dL 4-19 [facility] Sodium levelOrdered By: Davida Matthews on 04-15-2025 Sodium [Moles/Vol] 139 mmol/L 133-145 [facility] Influenza virus A and B and SARS-CoV-2 (COVID-19) and Respiratory syncytial virus RNAOrdered By: Gerardo García on 03-20-2025 SARS-CoV-2 (COVID-19) RNA BOBBI+probe Ql (Unsp spec) [facility] BRIEF OP NOTon 02-23-[address] [facility] IR EXCHANGE NEPH TUBE BILATo n 02-23-2025 IR EXCHANGE NEPH TUBE BILAT [facility] Absolute lymphocyte countOrd ered By: Gerardo García on 02-02-2025 Lymphocytes Auto (Unsp spec) [#/Vol] 4.84 10*3/uL High 0.83-4.51 [facility] Absolute neutrophil countOrd ered By: Gerardo García on 02-02-2025 Neutrophils (Bld) [#/Vol] 4.1 10*3/uL 2.0-7.7 [facility] Anion gap in Serum or Plasma Ordered By: Gerardo García on 02-02-2025 Anion gap [Moles/Vol] 12 mmol/L 5-15 [facility] Automated lymphocyte count a s percentage of total leukocytesOrdered By: Gerardo García on 02-02-2025 Lymphocytes/100 WBC Auto (Unsp spec) 48.9 % High 19-41 [facility] BUN/creatinine ratioOrdered By: Gerardo García on 02-02-2025 Urea nitrogen/Creatinine [Mass ratio] 11.1 mg/mg 10-20 [facility] Basophil percentageOrdered B y: Gerardo García on 02-02-2025 Basophils/100 WBC (Bld) 0.6 % 0-1 [facility] Bilirubin, totalOrdered By: Gerardo García on 02-02-2025 Bilirubin [Mass/Vol] 0.42 mg/dL 0.00-1.30 [facility] Calculated very low density lipoprotein (VLDL) cholesterol measurementOrdered By: Gerardo García on 02-02-2025 Calculated very low density lipoprotein (VLDL) cholesterol measurement 25 mg/dL 5-40 [facility] VLDL Cholesterol 25 mg/dL 5-40 [facility] Carbon dioxide, total [Moles /volume] in Central venous bloodOrdered By: Gerardo García on 02-02-2025 CO2 [Moles/Vol] 22.9 mmol/L 21.0-32.0 [facility] Chloride assayOrdered By: Lenny García on 02-02-2025 Chloride [Moles/Vol] 104 mmol/L 98-108 [facility] Eosinophil percentageOrdered By: Gerardo García on 02-02-2025 Eosinophils/100 WBC (Bld) 1.3 % 0-5 [facility] Erythrocyte distribution wid th ratioOrdered By: Gerardo García on 02-02-2025 Erythrocyte distribution width (RBC) [Ratio] 13.4 % 11.6-14.6 [facility] Erythrocyte distribution wid th standard deviationOrdered By: Gerardo García on 02-02-2025 Erythrocyte distribution width (RBC) [Entitic vol] 45.4 fL High 35.1-43.9 [facility] Erythrocyte distribution width (RBC) [Ratio] 45.4 fl High 35.1-43.9 [facility] GFR/1.73 sq M.predicted rachel g non-blacks MDRD (S/P/Bld) [Vol rate/Area]Ordered By: Gerardo García on 02-02-2025 Estimated GFR (MDRD) Non-Af Amer 33 Low >60 [facility] Comment on above: mL/min/1.73m2 CKD-EP I Creatinine Equation (2020) Glomerular filtration rate ( GFR) estimation/1.73 sq m using serum, plasma, or whole bOrdered By: Gerardo García on 02-02-2025 GFR/1.73 sq M.predicted among non-blacks MDRD (S/P/Bld) [Vol rate/Area] 33 mL/min/{1.73_m2} Low >60 [facility] Comment on above: mL/min/1.73m2 CKD-EP I Creatinine Equation (2020) Hematocrit Auto (Bld) [Volum e fraction]Ordered By: Gerardo García on 02-02-2025 Hematocrit (Bld) [Volume fraction] 42.4 % 37-47 [facility] Hemoglobin measurementOrdere d By: Gerardo García 02-02-2025 Hemoglobin (Bld) [Mass/Vol] 13.2 g/dL 12.0-15.0 [facility] Immature granulocytes/100 WB C Auto (Bld)Ordered By: Gerardo García 02-02-2025 Immature granulocytes/100 WBC (Bld) 0.200 % 0.0-0.9 [facility] Comment on above: IG% - Immature Granu locytes (promyelocytes, myelocytes and metamyelocytes) > 1% indicates that a LEFT SHIFT is Present. LDL calc ser/plasOrdered By: Gerardo García on 02-02-2025 Cholesterol in LDL [Mass/Vol] 120 mg/dL [facility] Comment on above: Anagcvvbue=867-373 m g/dL & Higher Rwdk=056 mg/dL or greater LDL Cholesterol, Calculated 120 mg/dL [facility] Comment on above: Qtjjrkkerk=775-599 m g/dL & Higher Cjnr=394 mg/dL or greater Laboratory - Chemistry and C hemistry - challengeOrdered By: Gerardo García on 02-02-2025 AST [Catalytic activity/Vol] 18 U/L <32 [facility] Comment on above: Hemolysis present, R esults could be affected. Lymphocytes Auto (Unsp spec) [#/Vol]Ordered By: Gerardo García on 02-02-2025 Lymphocytes (Bld) [#/Vol] 4.84 10*3/uL High 0.83-4.51 [facility] Lymphocytes/100 WBC Auto (Un sp spec)Ordered By: Gerardo García on 02-02-2025 Lymphocytes/100 WBC (Bld) 48.9 % High 19-41 [facility] MCV (mean corpuscular volume ) determinationOrdered By: Gerardo García on 02-02-2025 MCV (RBC) [Entitic vol] 91.4 fL 81-99 [facility] Mean corpuscular hemoglobin (MCH) determinationOrdered By: Gerardo García on 02-02-2025 MCH (RBC) [Entitic mass] 28.4 pg 27.0-32.0 [facility] Mean corpuscular hemoglobin concentration (MCHC) determinationOrdered By: Gerardo García on 02-02-2025 MCHC (RBC) [Mass/Vol] 31.1 g/dL Low 32-36 [facility] Mean platelet volume determi nationOrdered By: Gerardo García on 02-02-2025 Platelet mean volume (Bld) [Entitic vol] 10.0 fL 6.2-12.0 [facility] Monocyte percentageOrdered B y: Gerardo García on 02-02-2025 Monocytes/100 WBC (Bld) 8.0 % 0-10 [facility] Neutrophil percentageOrdered By: Gerardo García on 02-02-2025 Neutrophils/100 WBC (Bld) 41.0 % Low 47-70 [facility] Nucleated red blood cell per centageOrdered By: Gerardo García on 02-02-2025 Nucleated RBC/100 WBC (Bld) [Ratio] 0 % 0-5 [facility] Platelet countOrdered By: Lenny García on 02-02-2025 Platelets (Bld) [#/Vol] 353 10*3/uL 150-450 [facility] Potassium (Unsp spec) [Mass/ Vol]Ordered By: Gerardo García on 02-02-2025 Potassium [Moles/Vol] 4.2 mmol/L 3.3-5.1 [facility] Comment on above: Hemolysis present, R esults could be affected. Potassium measurement (mass/ volume)Ordered By: Gerardo García on 02-02-2025 Potassium (Unsp spec) [Mass/Vol] 4.2 mmol/L 3.3-5.1 [facility] Comment on above: Hemolysis present, R esults could be affected. RBC Auto (Bld) [#/Vol]Ordere d By: Gerardo García on 02-02-2025 RBC (Bld) [#/Vol] 4.64 10*6/uL 4.2-5.4 [facility] Screening total cholesterol/ high density lipoprotein (HDL) cholesterol ratioOrdered By: Gerardo García 02-02-2025 Cholesterol.total/Choles terol in HDL [Mass ratio] 4.54 {ratio} [facility] Serum creatinine measurement (mass/volume)Ordered By: Gerardo García 02-02-2025 Creatinine [Mass/Vol] 1.66 mg/dL High 0.70-1.20 [facility] Serum globulin measurementOr dered By: Gerardo García 02-02-2025 Globulin (S) [Mass/Vol] 4.4 g/dL High 2.2-4.2 [facility] Serum glucose measurement (m ass/volume)Ordered By: Gerardo García 02-02-2025 Glucose [Mass/Vol] 112 mg/dL High 70-99 [facility] Serum or plasma alanine masterson otransferase (ALT) measurementOrdered By: Gerardo García 02-02-2025 ALT [Catalytic activity/Vol] 7 U/L <35 [facility] Serum or plasma albumin yunior urement (mass/volume)Ordered By: Gerardo García 02-02-2025 Albumin [Mass/Vol] 3.6 g/dL 3.4-4.8 [facility] Serum or plasma albumin/glob ulin mass ratioOrdered By: Gerardo García 02-02-2025 Albumin/Globulin [Mass ratio] 0.8 {ratio} Low 0.9-2.4 [facility] Serum or plasma alkaline terry sphatase measurementOrdered By: Gerardo García 02-02-2025 ALP [Catalytic activity/Vol] 129 U/L High 35-104 [facility] Serum or plasma calcium yunior urement (mass/volume)Ordered By: Gerardo García 02-02-2025 Calcium [Mass/Vol] 9.0 mg/dL 7.6-11.0 [facility] Serum or plasma cholesterol in HDL measurement (mass/volume)Ordered By: Gerardo García 02-02-2025 Cholesterol in HDL [Mass/Vol] 41 mg/dL >40 [facility] Comment on above: National Cholesterol Education Program (NCEP) guidelines:<40 mg/dL: Low HDL-cholesterol (major risk factor for CHD)>= 60 mg/dL: High HDL-cholesterol (negative risk factor for CHD)HDL-cholesterol is affected by a number of factors, e.g. smoking, exercise, hormones, sex and age. Serum or plasma cholesterol measurement (mass/volume)Ordered By: Gerardo García 02-02-2025 Cholesterol [Mass/Vol] 186 mg/dL <201 [facility] Comment on above: Cholesterol level, D esirable <200 mg/dLBorderline high cholesterol 200-239 mg/dLHigh cholesterol >=240 mg/dLRecommendations of the NCEP Adult Treatment Panel for the following risk-cutoff thresholds for the [place] population. Serum or plasma urea nitroge n measurement (mass/volume)Ordered By: Gerardo García 02-02-2025 Urea nitrogen [Mass/Vol] 19 mg/dL 4-19 [facility] Sodium levelOrdered By: Gerardo García 02-02-2025 Sodium [Moles/Vol] 139 mmol/L 133-145 [facility] TSH DL <= 0.005 mIU/L QnOrde red By: Gerardo García 02-02-2025 Thyroid Stimulating Hormone (TSH) 2.250 uIU/mL 0.300-4.20 0 [facility] TSH Qn 2.250 uIU/mL 0.300-4.20 0 [facility] Total proteinOrdered By: Gerardo García 02-02-2025 Protein [Mass/Vol] 8.0 g/dL 5.9-8.4 [facility] Triglycerides measurementOrd ered By: Gerardo García on 02-02-2025 Triglyceride [Mass/Vol] 125 mg/dL <199 [facility] Comment on above: The drugs N-Acetylcy steine and Metamizole may falsely depress this assay. Normal range: <150 mg/dLBorderline High: 150-199 mg/dLHigh: 200-499 mg/dLVery High: >500 mg/dL Vitamin D, 25-hydroxyOrdered By: Gerardo García on 02-02-2025 Vitamin D 25-Hydroxy 28.9 ng/mL Low 30-100 [facility] Comment on above: Vitamin D StatusDefi ciency: <20 ng/mL (50nmol/L)Insufficiency: 20-30 ng/mL (50-75 nmol/L)Sufficiency: 30-100 ng/mL (75-250 nmol/L)Toxicity: >100 ng/mL (>250 nmol/L) White blood cell (WBC) count Ordered By: Gerardo García on 02-02-2025 WBC (Bld) [#/Vol] 9.9 10*3/uL 4.4-11.0 [facility] CNOVon 01-27-2025 CNOV Normal [facility] XR ABDOMEN 1V SUPINEon 01-27 XR ABDOMEN 1V SUPINE Normal [facility] Basic metabolic 2000 panelon 01-19-2025 Anion gap [Moles/Vol] 6 mmol/L Normal 5-16 [facility] Comment on above: Order Comment: Speci men Type: BLOOD SPECIMENOrdering Facility: [facility] Address: [address] [place] [address] Performed By: #### 2 4321-2 ####[facility] LABORATORYCLIA [id number] [place] [address] [place] Calcium [Mass/Vol] 9.1 mg/dL Normal 8.5-10.5 [facility] Comment on above: Order Comment: Speci men Type: BLOOD SPECIMENOrdering Facility: [facility] Address: [address] [place] [address] Performed By: #### 2 4321-2 ####[facility] LABORATORYCLIA [id number] [place] [address] [place] Chloride [Moles/Vol] 104 mmol/L Normal 98-107 [facility] Comment on above: Order Comment: Speci men Type: BLOOD SPECIMENOrdering Facility: [facility] Address: [address] [place] [address] Performed By: #### 2 4321-2 ####[facility] LABORATORYCLIA [id number] [place] [address] [place] CO2 [Moles/Vol] 27 mmol/L Normal 21-32 [facility] Comment on above: Order Comment: Speci men Type: BLOOD SPECIMENOrdering Facility: [facility] Address: [address] [place] [address] Performed By: #### 2 4321-2 ####[facility] LABORATORYCLIA [id number] [place] [address] [place] Creatinine [Mass/Vol] 1.53 mg/dL High 0.51-0.95 [facility] Comment on above: Order Comment: Speci men Type: BLOOD SPECIMENOrdering Facility: [facility] Address: [address] [place] [address] Result Comment: Mayda ents receiving either N-Acetylcysteine (NAC) or Metamizole prior to venipuncture, may have falsely depressed results. Performed By: #### 2 4321-2 ####[facility] LABORATORYCLIA [id number] [address] [place] Creatinine and Glomerular filtration rate.predicted panel (S/P/Bld) 36 mL/min/1.73m??? Low >=60 [facility] Comment on above: Order Comment: Speci men Type: BLOOD SPECIMENOrdering Facility: [facility] Address: [address] [place] [address] Result Comment: Judith mated Glomerular Filtration Rate [...] actual GFR. Performed By: #### 2 4321-2 ####[facility] LABORATORYCLIA [id number] [place] [id number] [place] Glucose [Mass/Vol] 77 mg/dL Normal 70-100 [facility] Comment on above: Order Comment: Abdon lyles Type: BLOOD SPECIMENOrdering Facility: [facility] Address: [address] [place] [address] Result Comment: The [place] [employer] (ADA) provides guidance for cutoff [...] Standards of Medical Care in Diabetes 2016, [place] [employer]. Diabetes Care. 2016.39(Suppl 1).Results may be falsely elevated after the administration of Sulfapyridine.Results may be falsely depressed after the administration of Sulfasalazine. Performed By: #### 2 4321-2 ####[facility] LABORATORYCLIA [id number] [place] [id number] [place] Potassium [Moles/Vol] 4.2 mmol/L Normal 3.5-5.1 [facility] Comment on above: Order Comment: Abdon lyles Type: BLOOD SPECIMENOrdering Facility: [facility] Address: [address] [place] [address] Performed By: #### 2 4321-2 ####[facility] LABORATORYCLIA [id number] [place] [id number] [place] Sodium [Moles/Vol] 137 mmol/L Normal 136-145 [facility] Comment on above: Order Comment: Abdon lyles Type: BLOOD SPECIMENOrdering Facility: [facility] Address: [address] [place] [id number] Performed By: #### 2 4321-2 ####[facility] LABORATORYCLIA [id number] [place] [address] [place] Urea nitrogen [Mass/Vol] 23 mg/dL Normal 7-26 [facility] Comment on above: Order Comment: Speci men Type: BLOOD SPECIMENOrdering Facility: [facility] Address: [address] [place] [address] [place] [id number] Performed By: #### 2 4321-2 ####[facility] LABORATORYCLIA [id number] [place] [address] [place] CASE MANAGEMon 01-19-2025 CASE MANAGEM Normal [facility] CNDSon 01-19-[address] [facility] Basic metabolic 2000 panelon 01-18-2025 Anion gap [Moles/Vol] 6 mmol/L Normal 5-16 [facility] Comment on above: Order Comment: Speci men Type: BLOOD SPECIMENOrdering Facility: [facility] Address: [address] [place], [place] [id number] Performed By: #### 2 777-1, , 16179-4 ####[facility] LABORATORYCLIA [id number] [place] [id number] [place] Calcium [Mass/Vol] 8.9 mg/dL Normal 8.5-10.5 [facility] Comment on above: Order Comment: Speci men Type: BLOOD SPECIMENOrdering Facility: [facility] Address: [facility] [place]Jose Antonio [place] [id number] Performed By: #### 2 777-1, , 02930-9 ####[facility] LABORATORYCLIA [id number] [place] [id number] [place] Chloride [Moles/Vol] 107 mmol/L Normal 98-107 [facility] Comment on above: Order Comment: Speci men Type: BLOOD SPECIMENOrdering Facility: [facility] Address: [facility] [place] [address] Performed By: #### 2 777-1, , ####[facility] LABORATORYCLIA [id number] [place] [address] [place] CO2 [Moles/Vol] 27 mmol/L Normal 21-32 [facility] Comment on above: Order Comment: Speci men Type: BLOOD SPECIMENOrdering Facility: [facility] Address: [address] [place] [address] Performed By: #### 2 777-1, , ####[facility] LABORATORYCLIA [id number] [place] [address] [place] Creatinine [Mass/Vol] 1.59 mg/dL High 0.51-0.95 [facility] Comment on above: Order Comment: Speci men Type: BLOOD SPECIMENOrdering Facility: [facility] Address: [address] [place] [address] Result Comment: Mayda ents receiving either N-Acetylcysteine (NAC) or Metamizole prior to venipuncture, may have falsely depressed results. Performed By: #### 2 777-1, , ####[facility] LABORATORYCLIA [id number] [address] Creatinine and Glomerular filtration rate.predicted panel (S/P/Bld) 34 mL/min/1.73m??? Low >=60 [facility] Comment on above: Order Comment: Speci men Type: BLOOD SPECIMENOrdering Facility: [facility] Address: [address] [place] [address] Result Comment: Judith mated Glomerular Filtration Rate [...] GFR. Performed By: #### 2 777-1, , ####[facility] LABORATORYCLIA [id number] [place] [address] [place] Glucose [Mass/Vol] 89 mg/dL Normal 70-100 [facility] Comment on above: Order Comment: Abdon lyles Type: BLOOD SPECIMENOrdering Facility: [facility] Address: [address] [id number] Result Comment: The [employer] [place] [employer] (ADA) provides guidance for cutoff [...] Standards of Medical Care in Diabetes 2016, [employer] [place] [employer]. Diabetes Care. 2016.39(Suppl 1).Results may be falsely elevated after the administration of Sulfapyridine.Results may be falsely depressed after the administration of Sulfasalazine. Performed By: #### 2 777-1, , ####[facility] LABORATORYCLIA [id number] [place] [address] [place] Potassium [Moles/Vol] 3.8 mmol/L Normal 3.5-5.1 [facility] Comment on above: Order Comment: Abdon lyles Type: BLOOD SPECIMENOrdering Facility: [facility] Address: [address] [place] [address] Performed By: #### 2 777-1, , ####[facility] LABORATORYCLIA [id number] [place] [address] [place] Sodium [Moles/Vol] 140 mmol/L Normal 136-145 [facility] Comment on above: Order Comment: Abdon lyles Type: BLOOD SPECIMENOrdering Facility: [facility] Address: [address] [id number] Performed By: #### 2 777-1, , ####[facility] LABORATORYCLIA [id number] [place] [address] [place] Urea nitrogen [Mass/Vol] 22 mg/dL Normal 7-26 [facility] Comment on above: Order Comment: Speci men Type: BLOOD SPECIMENOrdering Facility: [facility] Address: [address] [place] [address] Performed By: #### 2 777-1, , 90380-4 ####[facility] LABORATORYCLIA [id number] [place] [address] [place] Magnesium SerPl-ncon 01-18 Magnesium [Mass/Vol] 1.9 mg/dL Normal 1.6-2.6 [facility] Comment on above: Order Comment: Speci men Type: BLOOD SPECIMENOrdering Facility: [facility] Address: [address] [place] [address] Performed By: #### 2 777-1, , 04791-4 ####[facility] LABORATORYCLIA [id number] [place] [id number] [place] Phosphate SerPl-mCncon 01-18 Phosphate [Mass/Vol] 3.9 mg/dL Normal 2.5-4.9 [facility] Comment on above: Order Comment: Speci men Type: BLOOD SPECIMENOrdering Facility: [facility] Address: [address] [place] [address] Result Comment: Elev ated m-protein (paraprotein) levels in the serum may be exhibited in patients with monoclonal gammopathies, causing falsely elevated inorganic phosphorus results. Performed By: #### 2 777-1, , 23496-8 ####[facility] LABORATORYCLIA [id number] [place] [id number] [place] Basic metabolic 2000 panelon 01-17-2025 Anion gap [Moles/Vol] 8 mmol/L Normal 5-16 [facility] Comment on above: Order Comment: Speci men Type: BLOOD SPECIMENOrdering Facility: [facility] Address: [address] [place], [place] [address] Performed By: #### 2 777-1, , ####[facility] LABORATORYCLIA [id number] [place] [id number] [place] Calcium [Mass/Vol] 9.5 mg/dL Normal 8.5-10.5 [facility] Comment on above: Order Comment: Speci men Type: BLOOD SPECIMENOrdering Facility: [facility] Address: [address] [place], [place] [address] Performed By: #### 2 777-1, , ####[facility] LABORATORYCLIA [id number] [place] [id number] [place] Chloride [Moles/Vol] 107 mmol/L Normal 98-107 [facility] Comment on above: Order Comment: Speci men Type: BLOOD SPECIMENOrdering Facility: [facility] Address: [address] [place], [place] [address] Performed By: #### 2 777-1, , ####[facility] LABORATORYCLIA [id number] [place] [id number] [place] CO2 [Moles/Vol] 24 mmol/L Normal 21-32 [facility] Comment on above: Order Comment: Speci men Type: BLOOD SPECIMENOrdering Facility: [facility] Address: [address] [place], [place] [address] Performed By: #### 2 777-1, , ####[facility] LABORATORYCLIA [id number] [place] [id number] [place] Creatinine [Mass/Vol] 1.64 mg/dL High 0.51-0.95 [facility] Comment on above: Order Comment: Speci men Type: BLOOD SPECIMENOrdering Facility: [facility] Address: [address] [place], [place] [phone] Result Comment: Mayda ents receiving either N-Acetylcysteine (NAC) or Metamizole prior to venipuncture, may have falsely depressed results. Performed By: #### 2 777-1, 15350-3, 65583-1 ####[facility] LABORATORYCLIA [id number] [place] [id number] [place] Creatinine and Glomerular filtration rate.predicted panel (S/P/Bld) 33 mL/min/1.73m??? Low >=60 [facility] Comment on above: Order Comment: Abdon lyles Type: BLOOD SPECIMENOrdering Facility: [facility] Address: [address] [place] [address] Result Comment: Judith mated Glomerular Filtration Rate [...] GFR. Performed By: #### 2 777-1, , 57597-5 ####[facility] LABORATORYCLIA [id number] [place] [id number] [place] Glucose [Mass/Vol] 91 mg/dL Normal 70-100 [facility] Comment on above: Order Comment: Abdon lyles Type: BLOOD SPECIMENOrdering Facility: [facility] Address: [address] [place] [address] Result Comment: The [place] [employer] (ADA) provides guidance for cutoff [...] Standards of Medical Care in Diabetes 2016, [employer] [place] [employer]. Diabetes Care. 2016.39(Suppl 1).Results may be falsely elevated after the administration of Sulfapyridine.Results may be falsely depressed after the administration of Sulfasalazine. Performed By: #### 2 777-1, , 48004-7 ####[facility] LABORATORYCLIA [id number] [place] [id number] [place] Potassium [Moles/Vol] 4.0 mmol/L Normal 3.5-5.1 [facility] Comment on above: Order Comment: Speci men Type: BLOOD SPECIMENOrdering Facility: [facility] Address: [address] [place] [address] Performed By: #### 2 777-1, , 10399-0 ####[facility] LABORATORYCLIA [id number] [place] [id number] [place] Sodium [Moles/Vol] 139 mmol/L Normal 136-145 [facility] Comment on above: Order Comment: Speci men Type: BLOOD SPECIMENOrdering Facility: [facility] Address: [address] [place] [address] Performed By: #### 2 777-1, , ####[facility] LABORATORYCLIA [id number] [place] [id number] [place] Urea nitrogen [Mass/Vol] 20 mg/dL Normal 7-26 [facility] Comment on above: Order Comment: Speci men Type: BLOOD SPECIMENOrdering Facility: [facility] Address: [address] [place] [address] Performed By: #### 2 777-1, , ####[facility] LABORATORYCLIA [id number] [place] [id number] [place] Magnesium SerPl-mCncon 01-17 Magnesium [Mass/Vol] 1.9 mg/dL Normal 1.6-2.6 [facility] Comment on above: Order Comment: Speci men Type: BLOOD SPECIMENOrdering Facility: [facility] Address: [address] [place] [address] Performed By: #### 2 777-1, , 18451-0 ####[facility] LABORATORYCLIA [id number] [place] [id number] [place] Phosphate SerPl-mCncon 01-17 Phosphate [Mass/Vol] 4.0 mg/dL Normal 2.5-4.9 [facility] Comment on above: Order Comment: Abdon lyles Type: BLOOD SPECIMENOrdering Facility: [facility] Address: [address] [place] [address] Result Comment: Elev ated m-protein (paraprotein) levels in the serum may be exhibited in patients with monoclonal gammopathies, causing falsely elevated inorganic phosphorus results. Performed By: #### 2 777-1, 40633-7, 04597-2 ####[facility] LABORATORYCLIA [id number] [address] [id number] [facility] [place] CASE MANAGEMon 01-16-2025 CASE MANAGEM Normal [facility] CBC panel Auto (Bld)on 01-16 Erythrocyte distribution width (RBC) [Ratio] 13.4 % Normal 11.5-15.0 [facility] Comment on above: Order Comment: Randalli rafal Type: BLOOD SPECIMENOrdering Facility: [facility] Address: [address] [place] [address] Performed By: #### 5 8410-2 ####[facility] HOSPITALIA [id number] [place] [address] [place] Hematocrit (Bld) [Volume fraction] 37.2 % Normal 36.0-46.0 [facility] Comment on above: Order Comment: Speci men Type: BLOOD SPECIMENOrdering Facility: [facility] Address: [address] [place] [address] Performed By: #### 5 8410-2 ####[facility] LABORATORYCLIA [id number] [place] [id number] [place] Hemoglobin (Bld) [Mass/Vol] 12.2 g/dL Normal 11.5-15.5 [facility] Comment on above: Order Comment: Randalli rafal Type: BLOOD SPECIMENOrdering Facility: [facility] Address: [address] [place] [address] Performed By: #### 5 8410-2 ####[facility] LABORATORYCLIA [id number] [address] [place] MCH (RBC) [Entitic mass] 29.3 pg Normal 26.0-34.0 [facility] Comment on above: Order Comment: Speci men Type: BLOOD SPECIMENOrdering Facility: [facility] Address: [address] [place] [address] Performed By: #### 5 8410-2 ####[facility] LABORATORYCLIA [id number] [address] [place] MCHC (RBC) [Mass/Vol] 32.8 g/dL Normal 30.5-36.0 [facility] Comment on above: Order Comment: Speci men Type: BLOOD SPECIMENOrdering Facility: [facility] Address: [address] [place] [address] Performed By: #### 5 8410-2 ####[facility] LABORATORYCLIA [id number] [address] MCV (RBC) [Entitic vol] 89.2 fL Normal 80.0-100.0 [facility] Comment on above: Order Comment: Speci men Type: BLOOD SPECIMENOrdering Facility: [facility] Address: [address] [place] [address] Performed By: #### 5 8410-2 ####[facility] LABORATORYCLIA [id number] [address] [place] Nucleated RBC (Bld) [#/Vol] 10*3/uL Normal <0.01 [facility] Comment on above: Order Comment: Speci men Type: BLOOD SPECIMENOrdering Facility: [facility] Address: [address] [place] [address] Performed By: #### 5 8410-2 ####[facility] LABORATORYCLIA [id number] [address] [place] Platelet mean volume (Bld) [Entitic vol] 9.6 fL Normal 9.0-12.7 [facility] Comment on above: Order Comment: Speci men Type: BLOOD SPECIMENOrdering Facility: [facility] Address: [address] [place] [address] Performed By: #### 5 8410-2 ####[facility] LABORATORYCLIA [id number] [place] [id number] [facility] [place] Platelets (Bld) [#/Vol] 279 10*3/uL Normal 150-400 [facility] Comment on above: Order Comment: Speci men Type: BLOOD SPECIMENOrdering Facility: [facility] Address: [address] [place] [address] Performed By: #### 5 8410-2 ####[facility] LABORATORYCLIA [id number] [place] [id number] [place] RBC (Bld) [#/Vol] 4.17 10*6/uL Normal 3.90-5.20 [facility] Comment on above: Order Comment: Speci men Type: BLOOD SPECIMENOrdering Facility: [facility] Address: [address] [place], [place] [address] Performed By: #### 5 8410-2 ####[facility] LABORATORYCLIA [id number] [address] WBC (Bld) [#/Vol] 8.19 10*3/uL Normal 3.70-11.00 [facility] Comment on above: Order Comment: Speci men Type: BLOOD SPECIMENOrdering Facility: [facility] Address: [address] [place] [address] Performed By: #### 5 8410-2 ####[facility] LABORATORYCLIA [id number] [place] [id number] [facility] [place] CONSULT PROGon 01-16-2025 CONSULT PROG Normal [facility] Comprehensive metabolic 2000 panelon 01-16-2025 Albumin [Mass/Vol] 2.7 g/dL Low 3.2-5.0 [facility] Comment on above: Order Comment: Speci men Type: BLOOD SPECIMENOrdering Facility: [facility] Address: [address] [place] [address] Performed By: #### 1 9123-9, 77122-4 ####[facility] LABORATORYCLIA [id number] [place] [address] [place] ALP [Catalytic activity/Vol] 117 U/L Normal 45-117 [facility] Comment on above: Order Comment: Speci men Type: BLOOD SPECIMENOrdering Facility: [facility] Address: [address] [place] [address] Performed By: #### 1 9123-9, 65464-6 ####[facility] LABORATORYCLIA [id number] [place] [address] [place] ALT [Catalytic activity/Vol] 17 U/L Normal 13-61 [facility] Comment on above: Order Comment: Speci men Type: BLOOD SPECIMENOrdering Facility: [facility] Address: [address] [place] [address] Result Comment: Resu lts may be falsely depressed after the administration of Sulfasalazine and/or Sulfapyridine. Performed By: #### 1 9123-9, 01454-6 ####[facility] LABORATORYCLIA [id number] [address] STATES OF [facility] Anion gap [Moles/Vol] 7 mmol/L Normal 5-16 [facility] Comment on above: Order Comment: Speci men Type: BLOOD SPECIMENOrdering Facility: [facility] Address: [address] [place] [address] Performed By: #### 1 9123-9, 66713-4 ####[facility] LABORATORYCLIA [id number] [place] [address] [place] AST [Catalytic activity/Vol] 36 U/L High 8-34 [facility] Comment on above: Order Comment: Speci men Type: BLOOD SPECIMENOrdering Facility: [facility] Address: [address] [place] [address] Result Comment: Resu lts may be falsely depressed after the administration of Sulfasalazine and/or Sulfapyridine. Performed By: #### 1 9123-9, 58868-1 ####[facility] LABORATORYCLIA [id number] [place] [address] [place] Bilirubin [Mass/Vol] 0.4 mg/dL Normal 0.2-1.0 [facility] Comment on above: Order Comment: Speci men Type: BLOOD SPECIMENOrdering Facility: [facility] Address: [address] [place] [address] Performed By: #### 1 9123-9, ####[facility] LABORATORYCLIA [id number] [place] [address] [place] Calcium [Mass/Vol] 8.7 mg/dL Normal 8.5-10.5 [facility] Comment on above: Order Comment: Speci men Type: BLOOD SPECIMENOrdering Facility: [facility] Address: [address] [place] [address] Performed By: #### 1 9123-9, ####[facility] LABORATORYCLIA [id number] [place] [address] [place] Chloride [Moles/Vol] 109 mmol/L High 98-107 [facility] Comment on above: Order Comment: Speci men Type: BLOOD SPECIMENOrdering Facility: [facility] Address: [address] [place] [address] Performed By: #### 1 9123-9, ####[facility] LABORATORYCLIA [id number] [place] [address] [place] CO2 [Moles/Vol] 24 mmol/L Normal 21-32 [facility] Comment on above: Order Comment: Speci men Type: BLOOD SPECIMENOrdering Facility: [facility] Address: [address] [place] [address] Performed By: #### 1 9123-9, ####[facility] LABORATORYCLIA [id number] [place] [id number] [place] Creatinine [Mass/Vol] 1.88 mg/dL High 0.51-0.95 [facility] Comment on above: Order Comment: Speci men Type: BLOOD SPECIMENOrdering Facility: [facility] Address: [address] [place] [address] Result Comment: Mayda ents receiving either N-Acetylcysteine (NAC) or Metamizole prior to venipuncture, may have falsely depressed results. Performed By: #### 1 9123-9, 97936-8 ####[facility] LABORATORYCLIA [id number] [place] [id number] [place] Creatinine and Glomerular filtration rate.predicted panel (S/P/Bld) 28 mL/min/1.73m??? Low >=60 [facility] Comment on above: Order Comment: Abdon lyles Type: BLOOD SPECIMENOrdering Facility: [facility] Address: [address] [place] [address] Result Comment: Judith mated Glomerular Filtration Rate [...] actual GFR. Performed By: #### 1 9123-9, 02006-4 ####[facility] LABORATORYCLIA [id number] [place] [address] [place] Glucose [Mass/Vol] 90 mg/dL Normal 70-100 [facility] Comment on above: Order Comment: Abdon lyles Type: BLOOD SPECIMENOrdering Facility: [facility] Address: [address] [place] [address] Result Comment: The [employer] [place] [employer] (ADA) provides guidance for cutoff [...] Standards of Medical Care in Diabetes 2016, [employer] [place] [employer]. Diabetes Care. 2016.39(Suppl 1).Results may be falsely elevated after the administration of Sulfapyridine.Results may be falsely depressed after the administration of Sulfasalazine. Performed By: #### 1 9123-9, 52209-7 ####[facility] LABORATORYCLIA [id number] [place] [id number] [place] Potassium [Moles/Vol] 4.0 mmol/L Normal 3.5-5.1 [facility] Comment on above: Order Comment: Speci men Type: BLOOD SPECIMENOrdering Facility: [facility] Address: [address] [place] [address] Performed By: #### 1 9123-9, ####[facility] LABORATORYCLIA [id number] [place] [address] [place] Protein [Mass/Vol] 6.7 g/dL Normal 6.0-8.5 [facility] Comment on above: Order Comment: Speci men Type: BLOOD SPECIMENOrdering Facility: [facility] Address: [address] [place] [address] Performed By: #### 1 9123-9, ####[facility] LABORATORYCLIA [id number] [place] [address] [place] Sodium [Moles/Vol] 140 mmol/L Normal 136-145 [facility] Comment on above: Order Comment: Speci men Type: BLOOD SPECIMENOrdering Facility: [facility] Address: [address] [place] [address] Performed By: #### 1 9123-9, 14703-5 ####[facility] LABORATORYCLIA [id number] [place] [id number] [place] Urea nitrogen [Mass/Vol] 25 mg/dL Normal 7-26 [facility] Comment on above: Order Comment: Speci men Type: BLOOD SPECIMENOrdering Facility: [facility] Address: [address] [place] [address] Performed By: #### 1 9123-9, 46266-5 ####[facility] LABORATORYCLIA [id number] [place] [id number] [place] Magnesium SerPl-mCncon 01-16 Magnesium [Mass/Vol] 1.9 mg/dL Normal 1.6-2.6 [facility] Comment on above: Order Comment: Speci men Type: BLOOD SPECIMENOrdering Facility: [facility] Address: [address] [place] [address] Performed By: #### 1 9123-9, 65899-9 ####[facility] LABORATORYCLIA [id number] [place] [id number] [place] ALLIED HEALTHon 01-15-2025 ALLIED HEALTH Normal [facility] CASE MGT INIT ASSESon 2024 CASE MGT INIT [facility] CBC panel Auto (Bld)on 01-15 Erythrocyte distribution width (RBC) [Ratio] 13.4 % Normal 11.5-15.0 [facility] Comment on above: Order Comment: Speci men Type: BLOOD SPECIMENOrdering Facility: [facility] Address: [address] [place] [address] Performed By: #### 5 8410-2 ####[facility] LABORATORYCLIA [id number] [place] [id number] [place] Hematocrit (Bld) [Volume fraction] 36.7 % Normal 36.0-46.0 [facility] Comment on above: Order Comment: Speci men Type: BLOOD SPECIMENOrdering Facility: [facility] Address: [address] [place] [address] Performed By: #### 5 8410-2 ####[facility] LABORATORYCLIA [id number] [place] [id number] [place] Hemoglobin (Bld) [Mass/Vol] 11.8 g/dL Normal 11.5-15.5 [facility] Comment on above: Order Comment: Speci men Type: BLOOD SPECIMENOrdering Facility: [facility] Address: [address] [place] [address] Performed By: #### 5 8410-2 ####[facility] LABORATORYCLIA [id number] [address] MCH (RBC) [Entitic mass] 28.9 pg Normal 26.0-34.0 [facility] Comment on above: Order Comment: Speci men Type: BLOOD SPECIMENOrdering Facility: [facility] Address: [address] [place] [address] Performed By: #### 5 8410-2 ####[facility] LABORATORYCLIA [id number] [address] [place] MCHC (RBC) [Mass/Vol] 32.2 g/dL Normal 30.5-36.0 [facility] Comment on above: Order Comment: Speci men Type: BLOOD SPECIMENOrdering Facility: [facility] Address: [address] [place] [address] Performed By: #### 5 8410-2 ####[facility] LABORATORYCLIA [id number] [address] [place] MCV (RBC) [Entitic vol] 90.0 fL Normal 80.0-100.0 [facility] Comment on above: Order Comment: Speci men Type: BLOOD SPECIMENOrdering Facility: [facility] Address: [address] [place] [address] Performed By: #### 5 8410-2 ####[facility] LABORATORYCLIA [id number] [address] [place] Nucleated RBC (Bld) [#/Vol] 10*3/uL Normal <0.01 [facility] Comment on above: Order Comment: Speci men Type: BLOOD SPECIMENOrdering Facility: [facility] Address: [address] [place] [address] Performed By: #### 5 8410-2 ####[facility] LABORATORYCLIA [id number] [address] [place] Platelet mean volume (Bld) [Entitic vol] 9.9 fL Normal 9.0-12.7 [facility] Comment on above: Order Comment: Speci men Type: BLOOD SPECIMENOrdering Facility: [facility] Address: [address] [place] [address] Performed By: #### 5 8410-2 ####[facility] LABORATORYCLIA [id number] [place] [id number] [facility] [place] Platelets (Bld) [#/Vol] 259 10*3/uL Normal 150-400 [facility] Comment on above: Order Comment: Speci men Type: BLOOD SPECIMENOrdering Facility: [facility] Address: [address] [place] [address] Performed By: #### 5 8410-2 ####[facility] LABORATORYCLIA [id number] [place] [id number] [place] RBC (Bld) [#/Vol] 4.08 10*6/uL Normal 3.90-5.20 [facility] Comment on above: Order Comment: Speci men Type: BLOOD SPECIMENOrdering Facility: [facility] Address: [address] [place] [address] Performed By: #### 5 8410-2 ####[facility] LABORATORYCLIA [id number] [address] [place] WBC (Bld) [#/Vol] 8.40 10*3/uL Normal 3.70-11.00 [facility] Comment on above: Order Comment: Speci men Type: BLOOD SPECIMENOrdering Facility: [facility] Address: [address] [place] [address] Performed By: #### 5 8410-2 ####[facility] LABORATORYCLIA [id number] [place] [id number] [facility] [place] CONSULT PROGon 01-15-2025 CONSULT PROG Normal [facility] Comprehensive metabolic 2000 panelon 01-15-2025 Albumin [Mass/Vol] 2.5 g/dL Low 3.2-5.0 [facility] Comment on above: Order Comment: Speci men Type: BLOOD SPECIMENOrdering Facility: [facility] Address: [address] [place] [address] Performed By: #### 1 9123-9, 06055-8 ####[facility] LABORATORYCLIA [id number] [place] [address] [place] ALP [Catalytic activity/Vol] 120 U/L High 45-117 [facility] Comment on above: Order Comment: Speci men Type: BLOOD SPECIMENOrdering Facility: [facility] Address: [address] [place] [address] Performed By: #### 1 9123-9, 78485-9 ####[facility] LABORATORYCLIA [id number] [place] [address] [place] ALT [Catalytic activity/Vol] 18 U/L Normal 13-61 [facility] Comment on above: Order Comment: Speci men Type: BLOOD SPECIMENOrdering Facility: [facility] Address: [address] [place] [address] Result Comment: Resu lts may be falsely depressed after the administration of Sulfasalazine and/or Sulfapyridine. Performed By: #### 1 9123-9, 27177-2 ####[facility] LABORATORYCLIA [id number] [place] [address] [place] Anion gap [Moles/Vol] 10 mmol/L Normal 5-16 [facility] Comment on above: Order Comment: Speci men Type: BLOOD SPECIMENOrdering Facility: [facility] Address: [address] [place] [address] Performed By: #### 1 9123-9, 40329-2 ####[facility] LABORATORYCLIA [id number] [place] [address] [place] AST [Catalytic activity/Vol] 39 U/L High 8-34 [facility] Comment on above: Order Comment: Speci men Type: BLOOD SPECIMENOrdering Facility: [facility] Address: [address] [place] [address] Result Comment: Resu lts may be falsely depressed after the administration of Sulfasalazine and/or Sulfapyridine. Performed By: #### 1 9123, ####[facility] LABORATORYCLIA [id number] [place] [id number] [place] Bilirubin [Mass/Vol] 0.4 mg/dL Normal 0.2-1.0 [facility] Comment on above: Order Comment: Speci men Type: BLOOD SPECIMENOrdering Facility: [facility] Address: [address] [place] [address] Performed By: #### 1 239, ####[facility] LABORATORYCLIA [id number] [place] [address] [place] Calcium [Mass/Vol] 9.0 mg/dL Normal 8.5-10.5 [facility] Comment on above: Order Comment: Speci men Type: BLOOD SPECIMENOrdering Facility: [facility] Address: [address] [place] [address] Performed By: #### 1 239, ####[facility] LABORATORYCLIA [id number] [place] [address] [place] Chloride [Moles/Vol] 107 mmol/L Normal 98-107 [facility] Comment on above: Order Comment: Speci men Type: BLOOD SPECIMENOrdering Facility: [facility] Address: [address] [place] [address] Performed By: #### 1 239, ####[facility] LABORATORYCLIA [id number] [place] [address] [place] CO2 [Moles/Vol] 22 mmol/L Normal 21-32 [facility] Comment on above: Order Comment: Speci men Type: BLOOD SPECIMENOrdering Facility: [facility] Address: [address] [place] [address] Performed By: #### 1 9123-9, ####[facility] LABORATORYCLIA [id number] [place] [id number] [place] Creatinine [Mass/Vol] 1.93 mg/dL High 0.51-0.95 [facility] Comment on above: Order Comment: Speci men Type: BLOOD SPECIMENOrdering Facility: [facility] Address: [address] [place] [address] Result Comment: Mayda ents receiving either N-Acetylcysteine (NAC) or Metamizole prior to venipuncture, may have falsely depressed results. Performed By: #### 1 9123-9, 40744-8 ####[facility] LABORATORYCLIA [id number] [place] [id number] [place] Creatinine and Glomerular filtration rate.predicted panel (S/P/Bld) 27 mL/min/1.73m??? Low >=60 [facility] Comment on above: Order Comment: Abdon lyles Type: BLOOD SPECIMENOrdering Facility: [facility] Address: [address] [place] [address] Result Comment: Judith mated Glomerular Filtration Rate [...] actual GFR. Performed By: #### 1 9123-9, 81754-9 ####[facility] LABORATORYCLIA [id number] [place] [id number] [place] Glucose [Mass/Vol] 73 mg/dL Normal 70-100 [facility] Comment on above: Order Comment: Abdon lyles Type: BLOOD SPECIMENOrdering Facility: [facility] Address: [address] [place] [address] Result Comment: The [employer] [place] [employer] (ADA) provides guidance for cutoff [...] Standards of Medical Care in Diabetes 2016, [employer] [place] [employer]. Diabetes Care. 2016.39(Suppl 1).Results may be falsely elevated after the administration of Sulfapyridine.Results may be falsely depressed after the administration of Sulfasalazine. Performed By: #### 1 9123-9, 14168-4 ####[facility] LABORATORYCLIA [id number] [place] [id number] [place] Potassium [Moles/Vol] 4.0 mmol/L Normal 3.5-5.1 [facility] Comment on above: Order Comment: Speci men Type: BLOOD SPECIMENOrdering Facility: [facility] Address: [address] [place] [address] Performed By: #### 1 9123-9, ####[facility] LABORATORYCLIA [id number] [place] [id number] [place] Protein [Mass/Vol] 6.5 g/dL Normal 6.0-8.5 [facility] Comment on above: Order Comment: Speci men Type: BLOOD SPECIMENOrdering Facility: [facility] Address: [address] [place] [address] Performed By: #### 1 9123-9, ####[facility] LABORATORYCLIA [id number] [place] [address] [place] Sodium [Moles/Vol] 139 mmol/L Normal 136-145 [facility] Comment on above: Order Comment: Speci men Type: BLOOD SPECIMENOrdering Facility: [facility] Address: [address] [place] [address] Performed By: #### 1 9123-9, 32945-1 ####[facility] LABORATORYCLIA [id number] [place] [id number] [place] Urea nitrogen [Mass/Vol] 25 mg/dL Normal 7-26 [facility] Comment on above: Order Comment: Speci men Type: BLOOD SPECIMENOrdering Facility: [facility] Address: [address] [place] [address] Performed By: #### 1 9123-9, 24153-4 ####[facility] LABORATORYCLIA [id number] [place] [id number] [place] Magnesium SerPl-mCncon 01-15 Magnesium [Mass/Vol] 1.9 mg/dL Normal 1.6-2.6 [facility] Comment on above: Order Comment: Speci men Type: BLOOD SPECIMENOrdering Facility: [facility] Address: [address] [place] [address] Performed By: #### 1 9123-9, 68918-9 ####[facility] LABORATORYCLIA [id number] [place] [id number] [facility] [place] THERAPY NTon 01-15-2025 THERAPY NT Normal [facility] Basic metabolic 2000 panelon 01-14-2025 Anion gap [Moles/Vol] 9 mmol/L Normal 5-16 [facility] Comment on above: Order Comment: Speci men Type: BLOOD SPECIMENOrdering Facility: [facility] Address: [address] [place] [address] Performed By: #### 2 4321-2 ####[facility] LABORATORYCLIA [id number] [place] [address] [place] Calcium [Mass/Vol] 8.6 mg/dL Normal 8.5-10.5 [facility] Comment on above: Order Comment: Speci men Type: BLOOD SPECIMENOrdering Facility: [facility] Address: [address] [place] [address] Performed By: #### 2 4321-2 ####[facility] LABORATORYCLIA [id number] [place] [address] [place] Chloride [Moles/Vol] 104 mmol/L Normal 98-107 [facility] Comment on above: Order Comment: Speci men Type: BLOOD SPECIMENOrdering Facility: [facility] Address: [address] [place] [address] Performed By: #### 2 4321-2 ####[facility] LABORATORYCLIA [id number] [place] [id number] [place] CO2 [Moles/Vol] 22 mmol/L Normal 21-32 [facility] Comment on above: Order Comment: Abdon lyles Type: BLOOD SPECIMENOrdering Facility: [facility] Address: [address] [place] [address] Performed By: #### 2 4321-2 ####[facility] LABORATORYCLIA [id number] [address] [facility] Creatinine [Mass/Vol] 2.15 mg/dL High 0.51-0.95 [facility] Comment on above: Order Comment: Speci men Type: BLOOD SPECIMENOrdering Facility: [facility] Address: [address] [place] [address] Result Comment: Mayda ents receiving either N-Acetylcysteine (NAC) or Metamizole prior to venipuncture, may have falsely depressed results. Performed By: #### 2 4321-2 ####[facility] LABORATORYCLIA [id number] [address] Creatinine and Glomerular filtration rate.predicted panel (S/P/Bld) 24 mL/min/1.73m??? Low >=60 [facility] Comment on above: Order Comment: Abdon lyles Type: BLOOD SPECIMENOrdering Facility: [facility] Address: [address] [place] [address] Result Comment: Judith mated Glomerular Filtration Rate [...] actual GFR. Performed By: #### 2 4321-2 ####[facility] LABORATORYCLIA [id number] [address] [facility] Glucose [Mass/Vol] 83 mg/dL Normal 70-100 [facility] Comment on above: Order Comment: Abdon lyles Type: BLOOD SPECIMENOrdering Facility: [facility] Address: [address] [place] [address] Result Comment: The [place] [employer] (ADA) provides guidance for cutoff [...] Standards of Medical Care in Diabetes 2016, [employer] [place] [employer]. Diabetes Care. 2016.39(Suppl 1).Results may be falsely elevated after the administration of Sulfapyridine.Results may be falsely depressed after the administration of Sulfasalazine. Performed By: #### 2 4321-2 ####[facility] LABORATORYCLIA [id number] [place] [address] [place] Potassium [Moles/Vol] 4.1 mmol/L Normal 3.5-5.1 [facility] Comment on above: Order Comment: Speci men Type: BLOOD SPECIMENOrdering Facility: [facility] Address: [address] [place] [address] Performed By: #### 2 4321-2 ####[facility] LABORATORYCLIA [id number] [place] [address] [place] Sodium [Moles/Vol] 135 mmol/L Low 136-145 [facility] Comment on above: Order Comment: Speci men Type: BLOOD SPECIMENOrdering Facility: [facility] Address: [address] [place] [id number] Performed By: #### 2 4321-2 ####[facility] LABORATORYCLIA [id number] [place] [address] [place] Urea nitrogen [Mass/Vol] 29 mg/dL High 7-26 [facility] Comment on above: Order Comment: Speci men Type: BLOOD SPECIMENOrdering Facility: [facility] Address: [address] [place] [id number] Performed By: #### 2 4321-2 ####[facility] LABORATORYCLIA [id number] [place] [id number] [place] CBC W Auto Differential pane l (Bld)on 01-14-2025 Basophils (Bld) [#/Vol] 0.05 10*3/uL Normal <0.11 [facility] Comment on above: Order Comment: Speci men Type: BLOOD SPECIMENOrdering Facility: [facility] Address: [address] [place] [address] Performed By: #### 5 7021-8 ####[facility] LABORATORYCLIA [id number] [place] [address] [place] Basophils/100 WBC (Bld) 0.5 % Normal [facility] Comment on above: Order Comment: Speci men Type: BLOOD SPECIMENOrdering Facility: [facility] Address: [address] [place] [address] Performed By: #### 5 7021-8 ####[facility] LABORATORYCLIA [id number] [address] [facility] Differential cell count method Nom (Bld) Auto Normal [facility] Comment on above: Order Comment: Speci men Type: BLOOD SPECIMENOrdering Facility: [facility] Address: [address] [place] [address] Performed By: #### 5 7021-8 ####[facility] LABORATORYCLIA [id number] [place] [address] [place] Eosinophils (Bld) [#/Vol] 0.06 10*3/uL Normal <0.46 [facility] Comment on above: Order Comment: Speci men Type: BLOOD SPECIMENOrdering Facility: [facility] Address: [address] [place] [address] Performed By: #### 5 7021-8 ####[facility] LABORATORYCLIA [id number] [place] [address] [place] Eosinophils/100 WBC (Bld) 0.6 % Normal [facility] Comment on above: Order Comment: Speci men Type: BLOOD SPECIMENOrdering Facility: [facility] Address: [address] [place] [address] Performed By: #### 5 7021-8 ####[facility] LABORATORYCLIA [id number] [address] [place] Erythrocyte distribution width (RBC) [Ratio] 13.4 % Normal 11.5-15.0 [facility] Comment on above: Order Comment: Speci men Type: BLOOD SPECIMENOrdering Facility: [facility] Address: [address] [place] [address] Performed By: #### 5 7021-8 ####[facility] LABORATORYCLIA [id number] [address] [place] Hematocrit (Bld) [Volume fraction] 37.5 % Normal 36.0-46.0 [facility] Comment on above: Order Comment: Speci men Type: BLOOD SPECIMENOrdering Facility: [facility] Address: [address] [place] [address] Performed By: #### 5 7021-8 ####[facility] LABORATORYCLIA [id number] [place] [address] [place] Hemoglobin (Bld) [Mass/Vol] 12.4 g/dL Normal 11.5-15.5 [facility] Comment on above: Order Comment: Speci men Type: BLOOD SPECIMENOrdering Facility: [facility] Address: [address] [place] [address] Performed By: #### 5 7021-8 ####[facility] LABORATORYCLIA [id number] [place] [address] [place] Immature granulocytes (Bld) [#/Vol] 0.05 10*3/uL Normal <0.10 [facility] Comment on above: Order Comment: Speci men Type: BLOOD SPECIMENOrdering Facility: [facility] Address: [address] [place] [address] Performed By: #### 5 7021-8 ####[facility] LABORATORYCLIA [id number] [address] Immature granulocytes/100 WBC (Bld) 0.5 % Normal [facility] Comment on above: Order Comment: Speci men Type: BLOOD SPECIMENOrdering Facility: [facility] Address: [address] [place] [address] Performed By: #### 5 7021-8 ####[facility] LABORATORYCLIA [id number] [place] [address] [facility] [place] Lymphocytes (Bld) [#/Vol] 3.16 10*3/uL Normal 1.00-4.00 [facility] Comment on above: Order Comment: Speci men Type: BLOOD SPECIMENOrdering Facility: [facility] Address: [address] [place] [address] Performed By: #### 5 7021-8 ####[facility] LABORATORYCLIA [id number] [address] Lymphocytes/100 WBC (Bld) 33.5 % Normal [facility] Comment on above: Order Comment: Speci men Type: BLOOD SPECIMENOrdering Facility: [facility] Address: [address] [place] [address] Performed By: #### 5 7021-8 ####[facility] LABORATORYCLIA [id number] [address] [place] MCH (RBC) [Entitic mass] 29.2 pg Normal 26.0-34.0 [facility] Comment on above: Order Comment: Speci men Type: BLOOD SPECIMENOrdering Facility: [facility] Address: [address] [place] [address] Performed By: #### 5 7021-8 ####[facility] LABORATORYCLIA [id number] [address] [place] MCHC (RBC) [Mass/Vol] 33.1 g/dL Normal 30.5-36.0 [facility] Comment on above: Order Comment: Speci men Type: BLOOD SPECIMENOrdering Facility: [facility] Address: [address] [place] [address] Performed By: #### 5 7021-8 ####[facility] LABORATORYCLIA [id number] [place] [address] [place] MCV (RBC) [Entitic vol] 88.4 fL Normal 80.0-100.0 [facility] Comment on above: Order Comment: Speci men Type: BLOOD SPECIMENOrdering Facility: [facility] Address: [address] [place] [address] Performed By: #### 5 7021-8 ####[facility] LABORATORYCLIA [id number] [place] [address] [place] Monocytes (Bld) [#/Vol] 1.02 10*3/uL High <0.87 [facility] Comment on above: Order Comment: Speci men Type: BLOOD SPECIMENOrdering Facility: [facility] Address: [address] [place] [address] Performed By: #### 5 7021-8 ####[facility] LABORATORYCLIA [id number] [address] [place] Monocytes/100 WBC (Bld) 10.8 % Normal [facility] Comment on above: Order Comment: Speci men Type: BLOOD SPECIMENOrdering Facility: [facility] Address: [address] [place] [address] Performed By: #### 5 7021-8 ####[facility] LABORATORYCLIA [id number] [place] [address] [place] Neutrophils (Bld) [#/Vol] 5.09 10*3/uL Normal 1.45-7.50 [facility] Comment on above: Order Comment: Speci men Type: BLOOD SPECIMENOrdering Facility: [facility] Address: [address] [place] [address] Performed By: #### 5 7021-8 ####[facility] LABORATORYCLIA [id number] [place] [address] [place] Neutrophils/100 WBC (Bld) 54.1 % Normal [facility] Comment on above: Order Comment: Speci men Type: BLOOD SPECIMENOrdering Facility: [facility] Address: [address] [place] [address] Performed By: #### 5 7021-8 ####[facility] LABORATORYCLIA [id number] [place] [id number] [place] Nucleated RBC (Bld) [#/Vol] 10*3/uL Normal <0.01 [facility] Comment on above: Order Comment: Speci men Type: BLOOD SPECIMENOrdering Facility: [facility] Address: [address] [place] [address] Performed By: #### 5 7021-8 ####[facility] LABORATORYCLIA [id number] [place] [id number] [place] Nucleated RBC/100 WBC (Bld) [Ratio] 0.0 /100 WBC Normal [facility] Comment on above: Order Comment: Speci men Type: BLOOD SPECIMENOrdering Facility: [facility] Address: [address] [place] [address] Performed By: #### 5 7021-8 ####[facility] LABORATORYCLIA [id number] [place] [address] [place] Platelet mean volume (Bld) [Entitic vol] 9.6 fL Normal 9.0-12.7 [facility] Comment on above: Order Comment: Speci men Type: BLOOD SPECIMENOrdering Facility: [facility] Address: [address] [place] [address] Performed By: #### 5 7021-8 ####[facility] LABORATORYCLIA [id number] [place] [address] [place] Platelets (Bld) [#/Vol] 263 10*3/uL Normal 150-400 [facility] Comment on above: Order Comment: Speci men Type: BLOOD SPECIMENOrdering Facility: [facility] Address: [address] [place] [address] Performed By: #### 5 7021-8 ####[facility] LABORATORYCLIA [id number] [place] [id number] [place] RBC (Bld) [#/Vol] 4.24 10*6/uL Normal 3.90-5.20 [facility] Comment on above: Order Comment: Speci men Type: BLOOD SPECIMENOrdering Facility: [facility] Address: [address] [place] [address] Performed By: #### 5 7021-8 ####[facility] LABORATORYCLIA [id number] [place] [address] [place] WBC (Bld) [#/Vol] 9.43 10*3/uL Normal 3.70-11.00 [facility] Comment on above: Order Comment: Speci men Type: BLOOD SPECIMENOrdering Facility: [facility] Address: [address] [place] [address] Performed By: #### 5 7021-8 ####[facility] LABORATORYCLIA [id number] [place] [address] [place] CONSULTon 01-14-2025 CONSULT Normal [facility] THERAPY NTon 01-14-2025 THERAPY NT Normal [facility] Bacteria Ur Culton Bacteria identified Cx Nom (U) Abnormal [facility] Comment on above: Performed By: #### 6 30-4, 23778-2 ####[facility] LABORATORYCLIA [id number] [address] [place] CBC W Auto Differential pane l (Bld)on 01-13-2025 Basophils (Bld) [#/Vol] 0.03 10*3/uL Normal <0.11 [facility] Comment on above: Order Comment: Speci men Type: BLOOD SPECIMENOrdering Facility: [facility] Address: [address] [place] [address] Performed By: #### 5 7021-8 ####[facility] LABORATORYCLIA [id number] [address] [place] Basophils/100 WBC (Bld) 0.3 % Normal [facility] Comment on above: Order Comment: Speci men Type: BLOOD SPECIMENOrdering Facility: [facility] Address: [address] [place] [address] Performed By: #### 5 7021-8 ####[facility] LABORATORYCLIA [id number] [place] [address] [place] Differential cell count method Nom (Bld) Auto Normal [facility] Comment on above: Order Comment: Speci men Type: BLOOD SPECIMENOrdering Facility: [facility] Address: [address] [place] [address] Performed By: #### 5 7021-8 ####[facility] LABORATORYCLIA [id number] [place] [address] [place] Eosinophils (Bld) [#/Vol] 10*3/uL Normal <0.46 [facility] Comment on above: Order Comment: Speci men Type: BLOOD SPECIMENOrdering Facility: [facility] Address: [address] [place] [address] Performed By: #### 5 7021-8 ####[facility] LABORATORYCLIA [id number] [address] [place] Eosinophils/100 WBC (Bld) 0.1 % Normal [facility] Comment on above: Order Comment: Speci men Type: BLOOD SPECIMENOrdering Facility: [facility] Address: [address] [place] [address] Performed By: #### 5 7021-8 ####[facility] LABORATORYCLIA [id number] [address] [place] Erythrocyte distribution width (RBC) [Ratio] 13.6 % Normal 11.5-15.0 [facility] Comment on above: Order Comment: Speci men Type: BLOOD SPECIMENOrdering Facility: [facility] Address: [address] [place] [address] Performed By: #### 5 7021-8 ####[facility] LABORATORYCLIA [id number] [address] [place] Hematocrit (Bld) [Volume fraction] 39.1 % Normal 36.0-46.0 [facility] Comment on above: Order Comment: Speci men Type: BLOOD SPECIMENOrdering Facility: [facility] Address: [address] [place] [address] Performed By: #### 5 7021-8 ####[facility] LABORATORYCLIA [id number] [place] [id number] [place] Hemoglobin (Bld) [Mass/Vol] 12.9 g/dL Normal 11.5-15.5 [facility] Comment on above: Order Comment: Speci men Type: BLOOD SPECIMENOrdering Facility: [facility] Address: [address] [place] [address] Performed By: #### 5 7021-8 ####[facility] LABORATORYCLIA [id number] [place] [address] [place] Immature granulocytes (Bld) [#/Vol] 0.08 10*3/uL Normal <0.10 [facility] Comment on above: Order Comment: Speci men Type: BLOOD SPECIMENOrdering Facility: [facility] Address: [address] [place] [address] Performed By: #### 5 7021-8 ####[facility] LABORATORYCLIA [id number] [place] [address] [place] Immature granulocytes/100 WBC (Bld) 0.7 % Normal [facility] Comment on above: Order Comment: Speci men Type: BLOOD SPECIMENOrdering Facility: [facility] Address: [address] [place] [address] Performed By: #### 5 7021-8 ####[facility] LABORATORYCLIA [id number] [place] [address] [place] Lymphocytes (Bld) [#/Vol] 2.97 10*3/uL Normal 1.00-4.00 [facility] Comment on above: Order Comment: Speci men Type: BLOOD SPECIMENOrdering Facility: [facility] Address: [address] [place] [address] Performed By: #### 5 7021-8 ####[facility] LABORATORYCLIA [id number] [place] [address] [place] Lymphocytes/100 WBC (Bld) 25.1 % Normal [facility] Comment on above: Order Comment: Speci men Type: BLOOD SPECIMENOrdering Facility: [facility] Address: [address] [place] [address] Performed By: #### 5 7021-8 ####[facility] LABORATORYCLIA [id number] [address] [place] MCH (RBC) [Entitic mass] 29.0 pg Normal 26.0-34.0 [facility] Comment on above: Order Comment: Speci men Type: BLOOD SPECIMENOrdering Facility: [facility] Address: [address] [place] [address] Performed By: #### 5 7021-8 ####[facility] LABORATORYCLIA [id number] [address] [place] MCHC (RBC) [Mass/Vol] 33.0 g/dL Normal 30.5-36.0 [facility] Comment on above: Order Comment: Speci men Type: BLOOD SPECIMENOrdering Facility: [facility] Address: [address] [place] [address] Performed By: #### 5 7021-8 ####[facility] LABORATORYCLIA [id number] [place] [address] [place] MCV (RBC) [Entitic vol] 87.9 fL Normal 80.0-100.0 [facility] Comment on above: Order Comment: Speci men Type: BLOOD SPECIMENOrdering Facility: [facility] Address: [address] [place] [address] Performed By: #### 5 7021-8 ####[facility] LABORATORYCLIA [id number] [place] [address] [place] Monocytes (Bld) [#/Vol] 1.04 10*3/uL High <0.87 [facility] Comment on above: Order Comment: Speci men Type: BLOOD SPECIMENOrdering Facility: [facility] Address: [address] [place] [address] Performed By: #### 5 7021-8 ####[facility] LABORATORYCLIA [id number] [place] [id number] [place] Monocytes/100 WBC (Bld) 8.8 % Normal [facility] Comment on above: Order Comment: Speci men Type: BLOOD SPECIMENOrdering Facility: [facility] Address: [address] [place] [address] Performed By: #### 5 7021-8 ####[facility] LABORATORYCLIA [id number] [place] [address] [place] Neutrophils (Bld) [#/Vol] 7.71 10*3/uL High 1.45-7.50 [facility] Comment on above: Order Comment: Speci men Type: BLOOD SPECIMENOrdering Facility: [facility] Address: [address] [place] [address] Performed By: #### 5 7021-8 ####[facility] LABORATORYCLIA [id number] [place] [id number] [place] Neutrophils/100 WBC (Bld) 65.0 % Normal [facility] Comment on above: Order Comment: Speci men Type: BLOOD SPECIMENOrdering Facility: [facility] Address: [address] [place] [address] Performed By: #### 5 7021-8 ####[facility] LABORATORYCLIA [id number] [place] [id number] [place] Nucleated RBC (Bld) [#/Vol] 10*3/uL Normal <0.01 [facility] Comment on above: Order Comment: Speci men Type: BLOOD SPECIMENOrdering Facility: [facility] Address: [address] [place] [address] Performed By: #### 5 7021-8 ####[facility] LABORATORYCLIA [id number] [place] [id number] [place] Nucleated RBC/100 WBC (Bld) [Ratio] 0.0 /100 WBC Normal [facility] Comment on above: Order Comment: Speci men Type: BLOOD SPECIMENOrdering Facility: [facility] Address: [address] [place] [address] Performed By: #### 5 7021-8 ####[facility] LABORATORYCLIA [id number] [place] [id number] [place] Platelet mean volume (Bld) [Entitic vol] 10.0 fL Normal 9.0-12.7 [facility] Comment on above: Order Comment: Speci men Type: BLOOD SPECIMENOrdering Facility: [facility] Address: [facility] [place] [id number] Performed By: #### 5 7021-8 ####[facility] LABORATORYCLIA [id number] [place] [id number] [place] Platelets (Bld) [#/Vol] 318 10*3/uL Normal 150-400 [facility] Comment on above: Order Comment: Speci men Type: BLOOD SPECIMENOrdering Facility: [facility] Address: [address] [place] [address] [place] [id number] Performed By: #### 5 7021-8 ####[facility] LABORATORYCLIA [id number] [place] [address] [place] RBC (Bld) [#/Vol] 4.45 10*6/uL Normal 3.90-5.20 [facility] Comment on above: Order Comment: Speci men Type: BLOOD SPECIMENOrdering Facility: [facility] Address: [facility] [place] [id number] Performed By: #### 5 7021-8 ####[facility] LABORATORYCLIA [id number] [place] [id number] [place] WBC (Bld) [#/Vol] 11.84 10*3/uL High 3.70-11.00 [facility] Comment on above: Order Comment: Speci men Type: BLOOD SPECIMENOrdering Facility: [facility] Address: [facility] [place] [id number] Performed By: #### 5 7021-8 ####[facility] LABORATORYCLIA [id number] [place] [id number] [place] CNPNon 02-25-2025 CNPN Normal [facility] Comprehensive metabolic 2000 panelon 01-13-2025 Albumin [Mass/Vol] 3.0 g/dL Low 3.2-5.0 [facility] Comment on above: Order Comment: Speci men Type: BLOOD SPECIMENOrdering Facility: [facility] Address: [address] [place] [address] Performed By: #### 2 4323-8 ####[facility] LABORATORYCLIA [id number] [place] [id number] [place] ALP [Catalytic activity/Vol] 150 U/L High 45-117 [facility] Comment on above: Order Comment: Speci men Type: BLOOD SPECIMENOrdering Facility: [facility] Address: [address] [place] [address] Performed By: #### 2 4323-8 ####[facility] LABORATORYCLIA [id number] [place] [address] [place] ALT [Catalytic activity/Vol] 28 U/L Normal 13-61 [facility] Comment on above: Order Comment: Speci men Type: BLOOD SPECIMENOrdering Facility: [facility] Address: [address] [place] [address] Result Comment: Resu lts may be falsely depressed after the administration of Sulfasalazine and/or Sulfapyridine. Performed By: #### 2 4323-8 ####[facility] LABORATORYCLIA [id number] [place] [id number] [place] Anion gap [Moles/Vol] 10 mmol/L Normal 5-16 [facility] Comment on above: Order Comment: Speci men Type: BLOOD SPECIMENOrdering Facility: [facility] Address: [address] [place] [id number] Performed By: #### 2 4323-8 ####[facility] LABORATORYCLIA [id number] [address] [place] AST [Catalytic activity/Vol] 37 U/L High 8-34 [facility] Comment on above: Order Comment: Speci men Type: BLOOD SPECIMENOrdering Facility: [facility] Address: [address] [place] [address] Result Comment: Resu lts may be falsely depressed after the administration of Sulfasalazine and/or Sulfapyridine. Performed By: #### 2 4323-8 ####[facility] LABORATORYCLIA [id number] [place] [address] [place] Bilirubin [Mass/Vol] 0.4 mg/dL Normal 0.2-1.0 [facility] Comment on above: Order Comment: Speci men Type: BLOOD SPECIMENOrdering Facility: [facility] Address: [address] [place] [address] Performed By: #### 2 4323-8 ####[facility] LABORATORYCLIA [id number] [place] [address] [place] Calcium [Mass/Vol] 9.3 mg/dL Normal 8.5-10.5 [facility] Comment on above: Order Comment: Speci men Type: BLOOD SPECIMENOrdering Facility: [facility] Address: [address] [place] [address] Performed By: #### 2 4323-8 ####[facility] LABORATORYCLIA [id number] [place] [address] [place] Chloride [Moles/Vol] 100 mmol/L Normal 98-107 [facility] Comment on above: Order Comment: Speci men Type: BLOOD SPECIMENOrdering Facility: [facility] Address: [address] [place] [address] Performed By: #### 2 4323-8 ####[facility] LABORATORYCLIA [id number] [place] [address] [place] CO2 [Moles/Vol] 23 mmol/L Normal 21-32 [facility] Comment on above: Order Comment: Speci men Type: BLOOD SPECIMENOrdering Facility: [facility] Address: [address] [place] [address] Performed By: #### 2 4323-8 ####[facility] LABORATORYCLIA [id number] [place] [address] [place] Creatinine [Mass/Vol] 2.42 mg/dL High 0.51-0.95 [facility] Comment on above: Order Comment: Abdon lyles Type: BLOOD SPECIMENOrdering Facility: [facility] Address: [address] [place] [address] Result Comment: Mayda ents receiving either N-Acetylcysteine (NAC) or Metamizole prior to venipuncture, may have falsely depressed results. Performed By: #### 2 4323-8 ####[facility] LABORATORYCLIA [id number] [place] [address] [place] Creatinine and Glomerular filtration rate.predicted panel (S/P/Bld) 21 mL/min/1.73m??? Low >=60 [facility] Comment on above: Order Comment: Abdon lyles Type: BLOOD SPECIMENOrdering Facility: [facility] Address: [address] [place] [address] Result Comment: Judith mated Glomerular Filtration Rate [...] actual GFR. Performed By: #### 2 4323-8 ####[facility] LABORATORYCLIA [id number] [place] [address] [place] Glucose [Mass/Vol] 98 mg/dL Normal 70-100 [facility] Comment on above: Order Comment: Abdon lyles Type: BLOOD SPECIMENOrdering Facility: [facility] Address: [address] [place] [address] Result Comment: The [place] [employer] (ADA) provides guidance for cutoff [...] Standards of Medical Care in Diabetes 2016, [employer] [place] [employer]. Diabetes Care. 2016.39(Suppl 1).Results may be falsely elevated after the administration of Sulfapyridine.Results may be falsely depressed after the administration of Sulfasalazine. Performed By: #### 2 4323-8 ####[facility] LABORATORYCLIA [id number] [place] [address] [place] Potassium [Moles/Vol] 4.3 mmol/L Normal 3.5-5.1 [facility] Comment on above: Order Comment: Speci men Type: BLOOD SPECIMENOrdering Facility: [facility] Address: [address] [place] [address] Performed By: #### 2 4323-8 ####[facility] LABORATORYCLIA [id number] [place] [address] [place] Protein [Mass/Vol] 7.5 g/dL Normal 6.0-8.5 [facility] Comment on above: Order Comment: Speci men Type: BLOOD SPECIMENOrdering Facility: [facility] Address: [address] [place] [address] Performed By: #### 2 4323-8 ####[facility] LABORATORYCLIA [id number] [place] [id number] [place] Sodium [Moles/Vol] 133 mmol/L Low 136-145 [facility] Comment on above: Order Comment: Speci men Type: BLOOD SPECIMENOrdering Facility: [facility] Address: [address] [place] [address] Performed By: #### 2 4323-8 ####[facility] LABORATORYCLIA [id number] [place] [id number] [place] Urea nitrogen [Mass/Vol] 31 mg/dL High 7-26 [facility] Comment on above: Order Comment: Speci men Type: BLOOD SPECIMENOrdering Facility: [facility] Address: [address] [place] [address] Performed By: #### 2 4323-8 ####[facility] LABORATORYCLIA [id number] [place] [id number] [place] ECG COMPLETEon 01-13-2025 ECG COMPLETE Normal [facility] ED PROV NOTEon 01-13-2025 ED PROV NOTE Normal [facility] HIGH SENSITIVITY TROPONIN I (INITIAL)on 01-13-2025 Tropinin I.cardiac panel High sensitivity method 5.9 pg/mL Normal 0.0-34.0 [facility] Comment on above: Order Comment: Speci men Type: BLOOD SPECIMENOrdering Facility: [facility] Address: [address] [place] [address] Performed By: #### L [id number] ####[facility] LABORATORYCLIA [id number] [address] HIGH SENSITIVITY TROPONIN I (SECOND)on 01-13-2025 Tropinin I.cardiac panel High sensitivity method 8.0 pg/mL Normal 0.0-34.0 [facility] Comment on above: Order Comment: Speci men Type: BLOOD SPECIMENOrdering Facility: [facility] Address: [address] [place] [address] Performed By: #### H STROPI2 ####[facility] LABORATORYCLIA [id number] [address] [place] HISTORY PHYSICALon HISTORY PHYSICAL Normal [facility] SEPSIS LACTATE W/ REFLEX (IN ITIAL)on 01-13-2025 Lactate [Moles/Vol] 1.1 mmol/L Normal 0.4-2.0 [facility] Comment on above: Order Comment: Speci men Type: BLOOD SPECIMENOrdering Facility: [facility] Address: [address] [place] [address] Performed By: #### S LACTR ####[facility] LABORATORYCLIA [id number] [address] [place] Urinalysis complete panel (U )on 01-13-2025 Bacteria LM.HPF (Urine sed) [#/Area] Moderate Abnormal None Seen [facility] Comment on above: Order Comment: Speci men Type: URINE SPECIMENOrdering Facility: [facility] Address: [address] [place] [address] Performed By: #### 6 30-4, 96859-2 ####[facility] LABORATORYCLIA [id number] [place] [address] [place] Bilirubin Ql (U) Negative Normal Negative [facility] Comment on above: Order Comment: Speci men Type: URINE SPECIMENOrdering Facility: [facility] Address: [address] [place] [address] Performed By: #### 6 30-4, 90383-7 ####[facility] LABORATORYCLIA [id number] [address] Clarity (Unsp spec) Cloudy Abnormal Clear [facility] Comment on above: Order Comment: Speci men Type: URINE SPECIMENOrdering Facility: [facility] Address: [address] [place] [address] Performed By: #### 6 30-, 08403-3 ####[facility] LABORATORYCLIA [id number] [address] [place] Color (U) Yellow Normal Yellow [facility] Comment on above: Order Comment: Speci men Type: URINE SPECIMENOrdering Facility: [facility] Address: [address] [place] [address] Performed By: #### 6 30-4, 56415-0 ####[facility] LABORATORYCLIA [id number] [address] [place] Epithelial cells LM.HPF (Urine sed) [#/Area] Few Normal [facility] Comment on above: Order Comment: Speci men Type: URINE SPECIMENOrdering Facility: [facility] Address: [address] [place] [address] Performed By: #### 6 30-4, 01773-0 ####[facility] LABORATORYCLIA [id number] [place] [id number] [place] Glucose Test strip (U) [Mass/Vol] Negative Normal Negative [facility] Comment on above: Order Comment: Speci men Type: URINE SPECIMENOrdering Facility: [facility] Address: [address] [place] [address] Performed By: #### 6 30-4, 37319-0 ####[facility] LABORATORYCLIA [id number] [address] [place] Hemoglobin Ql (U) 1+ Abnormal Negative [facility] Comment on above: Order Comment: Speci men Type: URINE SPECIMENOrdering Facility: [facility] Address: [address] [place] [address] Performed By: #### 6 30-4, 90378-1 ####[facility] LABORATORYCLIA [id number] [address] [place] Ketones Ql (U) Negative Normal Negative [facility] Comment on above: Order Comment: Speci men Type: URINE SPECIMENOrdering Facility: [facility] Address: [address] [place] [address] Performed By: #### 6 30-, 81049-0 ####[facility] LABORATORYCLIA [id number] [address] [place] Leukocyte esterase Test strip Ql (U) 3+ Abnormal Negative [facility] Comment on above: Order Comment: Speci men Type: URINE SPECIMENOrdering Facility: [facility] Address: [address] [place] [address] Performed By: #### 6 30-4, 38118-7 ####[facility] LABORATORYCLIA [id number] [place] [address] [place] Nitrite Ql (U) Negative Normal Negative [facility] Comment on above: Order Comment: Speci men Type: URINE SPECIMENOrdering Facility: [facility] Address: [address] [place] [address] Performed By: #### 6 30-4, 47929-6 ####[facility] LABORATORYCLIA [id number] [place] [id number] [place] pH (U) 5.0 [pH] Normal 5.0-8.0 [facility] Comment on above: Order Comment: Speci men Type: URINE SPECIMENOrdering Facility: [facility] Address: [address] [place] [address] Performed By: #### 6 30-4, 35252-9 ####[facility] LABORATORYCLIA [id number] [place] [id number] [place] Protein (U) [Mass/Vol] 2+ Abnormal Negative [facility] Comment on above: Order Comment: Speci men Type: URINE SPECIMENOrdering Facility: [facility] Address: [address] [place] [address] Performed By: #### 6 30-4, 92619-5 ####[facility] LABORATORYCLIA [id number] [place] [address] [place] RBC LM.HPF (Urine sed) [#/Area] 11-25 /HPF Abnormal 0-3 /HPF [facility] Comment on above: Order Comment: Speci men Type: URINE SPECIMENOrdering Facility: [facility] Address: [address] [place] [address] Performed By: #### 6 30-4, 63889-7 ####[facility] LABORATORYIA [id number] [address] [place] Specific gravity (U) [Rel density] 1.018 Normal 1.005-1.03 0 [facility] Comment on above: Order Comment: Speci men Type: URINE SPECIMENOrdering Facility: [facility] Address: [address] [place] [address] Performed By: #### 6 30-4, 65143-3 ####[facility] LABORATORYCLIA [id number] [address] [place] Urobilinogen Ql (U) Negative Normal Negative [facility] Comment on above: Order Comment: Speci men Type: URINE SPECIMENOrdering Facility: [facility] Address: [address] [place] [address] Performed By: #### 6 30-4, 17514-5 ####[facility] LABORATORYCLIA [id number] [address] WBC LM.HPF (Urine sed) [#/Area] /[HPF] Abnormal 0-5 /HPF [facility] Comment on above: Order Comment: Speci men Type: URINE SPECIMENOrdering Facility: [facility] Address: [address] [place] [address] Performed By: #### 6 30-4, 42091-8 ####[facility] LABORATORYCLIA [id number] [place] [address] [place] XR CHEST 2V FRONTAL/LATon XR CHEST 2V FRONTAL/LAT Normal [facility] BRIEF OP NOTon 01-12-2025 BRIEF OP NOT Normal [facility] Bacteria Bld Culton 01-12-20 25 Bacteria identified Cx Nom (Bld) Abnormal [facility] Comment on above: Performed By: #### 6 00-7, 28749-0 ####[facility] LABORATORYCLIA [id number] [address] STATES OF [facility] Bacteria identified Cx Nom (Bld) Abnormal [facility] Comment on above: Performed By: #### 6 00-7 ####[facility] LABORATORYCLIA [id number] [address] [place] CBC W Auto Differential pane l (Bld)on 01-12-2025 Basophils (Bld) [#/Vol] 0.06 10*3/uL Normal <0.11 [facility] Comment on above: Order Comment: Speci men Type: BLOOD SPECIMENOrdering Facility: [facility] Address: [address] [place] [address] Performed By: #### 5 7021-8 ####[facility] LABORATORYCLIA [id number] [address] [place] Basophils/100 WBC (Bld) 0.4 % Normal [facility] Comment on above: Order Comment: Speci men Type: BLOOD SPECIMENOrdering Facility: [facility] Address: [address] [place] [address] Performed By: #### 5 7021-8 ####[facility] LABORATORYCLIA [id number] [place] [address] [place] Differential cell count method Nom (Bld) Auto Normal [facility] Comment on above: Order Comment: Speci men Type: BLOOD SPECIMENOrdering Facility: [facility] Address: [address] [place] [address] Performed By: #### 5 7021-8 ####[facility] LABORATORYCLIA [id number] [place] [address] [place] Eosinophils (Bld) [#/Vol] 10*3/uL Normal <0.46 [facility] Comment on above: Order Comment: Speci men Type: BLOOD SPECIMENOrdering Facility: [facility] Address: [address] [place] [address] Performed By: #### 5 7021-8 ####[facility] LABORATORYCLIA [id number] [address] [place] Eosinophils/100 WBC (Bld) 0.1 % Normal [facility] Comment on above: Order Comment: Speci men Type: BLOOD SPECIMENOrdering Facility: [facility] Address: [address] [place] [address] Performed By: #### 5 7021-8 ####[facility] LABORATORYCLIA [id number] [address] [place] Erythrocyte distribution width (RBC) [Ratio] 13.6 % Normal 11.5-15.0 [facility] Comment on above: Order Comment: Speci men Type: BLOOD SPECIMENOrdering Facility: [facility] Address: [address] [place] [address] Performed By: #### 5 7021-8 ####[facility] LABORATORYCLIA [id number] [address] [place] Hematocrit (Bld) [Volume fraction] 44.0 % Normal 36.0-46.0 [facility] Comment on above: Order Comment: Speci men Type: BLOOD SPECIMENOrdering Facility: [facility] Address: [address] [place] [address] Performed By: #### 5 7021-8 ####[facility] LABORATORYCLIA [id number] [place] [id number] [place] Hemoglobin (Bld) [Mass/Vol] 14.4 g/dL Normal 11.5-15.5 [facility] Comment on above: Order Comment: Speci men Type: BLOOD SPECIMENOrdering Facility: [facility] Address: [facility] [place] [address] Performed By: #### 5 7021-8 ####[facility] LABORATORYCLIA [id number] [place] [id number] [place] Immature granulocytes (Bld) [#/Vol] 0.06 10*3/uL Normal <0.10 [facility] Comment on above: Order Comment: Speci men Type: BLOOD SPECIMENOrdering Facility: [facility] Address: [address] [place] [address] Performed By: #### 5 7021-8 ####[facility] LABORATORYCLIA [id number] [place] [address] [place] Immature granulocytes/100 WBC (Bld) 0.4 % Normal [facility] Comment on above: Order Comment: Speci men Type: BLOOD SPECIMENOrdering Facility: [facility] Address: [address] [place] [address] Performed By: #### 5 7021-8 ####[facility] LABORATORYCLIA [id number] [place] [id number] [place] Lymphocytes (Bld) [#/Vol] 1.13 10*3/uL Normal 1.00-4.00 [facility] Comment on above: Order Comment: Speci men Type: BLOOD SPECIMENOrdering Facility: [facility] Address: [address] [place] [address] Performed By: #### 5 7021-8 ####[facility] LABORATORYCLIA [id number] [place] [id number] [place] Lymphocytes/100 WBC (Bld) 8.3 % Normal [facility] Comment on above: Order Comment: Speci men Type: BLOOD SPECIMENOrdering Facility: [facility] Address: [address] [place] [address] Performed By: #### 5 7021-8 ####[facility] LABORATORYCLIA [id number] [place] [id number] [place] MCH (RBC) [Entitic mass] 29.0 pg Normal 26.0-34.0 [facility] Comment on above: Order Comment: Speci men Type: BLOOD SPECIMENOrdering Facility: [facility] Address: [address] [place] [address] Performed By: #### 5 7021-8 ####[facility] LABORATORYCLIA [id number] [place] [address] [place] MCHC (RBC) [Mass/Vol] 32.7 g/dL Normal 30.5-36.0 [facility] Comment on above: Order Comment: Speci men Type: BLOOD SPECIMENOrdering Facility: [facility] Address: [address] [place] [address] Performed By: #### 5 7021-8 ####[facility] LABORATORYCLIA [id number] [place] [address] [place] MCV (RBC) [Entitic vol] 88.7 fL Normal 80.0-100.0 [facility] Comment on above: Order Comment: Speci men Type: BLOOD SPECIMENOrdering Facility: [facility] Address: [address] [place] [address] Performed By: #### 5 7021-8 ####[facility] LABORATORYCLIA [id number] [place] [address] [facility] [place] Monocytes (Bld) [#/Vol] 0.59 10*3/uL Normal <0.87 [facility] Comment on above: Order Comment: Speci men Type: BLOOD SPECIMENOrdering Facility: [facility] Address: [address] [place] [address] Performed By: #### 5 7021-8 ####[facility] LABORATORYCLIA [id number] [place] [address] [place] Monocytes/100 WBC (Bld) 4.3 % Normal [facility] Comment on above: Order Comment: Speci men Type: BLOOD SPECIMENOrdering Facility: [facility] Address: [address] [place] [address] Performed By: #### 5 7021-8 ####[facility] LABORATORYCLIA [id number] [place] [address] [place] Neutrophils (Bld) [#/Vol] 11.74 10*3/uL High 1.45-7.50 [facility] Comment on above: Order Comment: Speci men Type: BLOOD SPECIMENOrdering Facility: [facility] Address: [address] [place] [address] Performed By: #### 5 7021-8 ####[facility] LABORATORYCLIA [id number] [place] [address] [place] Neutrophils/100 WBC (Bld) 86.5 % Normal [facility] Comment on above: Order Comment: Speci men Type: BLOOD SPECIMENOrdering Facility: [facility] Address: [address] [place] [address] Performed By: #### 5 7021-8 ####[facility] LABORATORYCLIA [id number] [place] [address] [place] Nucleated RBC (Bld) [#/Vol] 10*3/uL Normal <0.01 [facility] Comment on above: Order Comment: Speci men Type: BLOOD SPECIMENOrdering Facility: [facility] Address: [address] [place] [address] Performed By: #### 5 7021-8 ####[facility] LABORATORYCLIA [id number] [place] [address] [place] Nucleated RBC/100 WBC (Bld) [Ratio] 0.0 /100 WBC Normal [facility] Comment on above: Order Comment: Speci men Type: BLOOD SPECIMENOrdering Facility: [facility] Address: [address] [place] [address] Performed By: #### 5 7021-8 ####[facility] LABORATORYCLIA [id number] [place] [id number] [place] Platelet mean volume (Bld) [Entitic vol] 9.5 fL Normal 9.0-12.7 [facility] Comment on above: Order Comment: Speci men Type: BLOOD SPECIMENOrdering Facility: [facility] Address: [address] [place] [address] Performed By: #### 5 7021-8 ####[facility] LABORATORYCLIA [id number] [place] [id number] [facility] [place] Platelets (Bld) [#/Vol] 348 10*3/uL Normal 150-400 [facility] Comment on above: Order Comment: Speci men Type: BLOOD SPECIMENOrdering Facility: [facility] Address: [address] [place] [address] Performed By: #### 5 7021-8 ####[facility] LABORATORYCLIA [id number] [address] [place] RBC (Bld) [#/Vol] 4.96 10*6/uL Normal 3.90-5.20 [facility] Comment on above: Order Comment: Speci men Type: BLOOD SPECIMENOrdering Facility: [facility] Address: [address] [place] [address] Performed By: #### 5 7021-8 ####[facility] LABORATORYCLIA [id number] [place] [id number] [place] WBC (Bld) [#/Vol] 13.60 10*3/uL High 3.70-11.00 [facility] Comment on above: Order Comment: Speci men Type: BLOOD SPECIMENOrdering Facility: [facility] Address: [address] [place] [address] Performed By: #### 5 7021-8 ####[facility] LABORATORYCLIA [id number] [place] [id number] [facility] [place] Comprehensive metabolic 2000 panelon 01-12-2025 Albumin [Mass/Vol] 3.1 g/dL Low 3.2-5.0 [facility] Comment on above: Order Comment: Speci men Type: BLOOD SPECIMENOrdering Facility: [facility] Address: [address] [place] [address] Performed By: #### 2 4323-8 ####[facility] LABORATORYCLIA [id number] [place] [address] [place] ALP [Catalytic activity/Vol] 167 U/L High 45-117 [facility] Comment on above: Order Comment: Speci men Type: BLOOD SPECIMENOrdering Facility: [facility] Address: [address] [place] [address] Performed By: #### 2 4323-8 ####[facility] LABORATORYCLIA [id number] [address] [place] ALT [Catalytic activity/Vol] 19 U/L Normal 13-61 [facility] Comment on above: Order Comment: Speci men Type: BLOOD SPECIMENOrdering Facility: [facility] Address: [address] [place] [address] Result Comment: Resu lts may be falsely depressed after the administration of Sulfasalazine and/or Sulfapyridine. Performed By: #### 2 4323-8 ####[facility] LABORATORYCLIA [id number] [address] [place] Anion gap [Moles/Vol] 9 mmol/L Normal 5-16 [facility] Comment on above: Order Comment: Speci men Type: BLOOD SPECIMENOrdering Facility: [facility] Address: [address] [place] [address] Performed By: #### 2 4323-8 ####[facility] LABORATORYCLIA [id number] [place] [address] [place] AST [Catalytic activity/Vol] 31 U/L Normal 8-34 [facility] Comment on above: Order Comment: Speci men Type: BLOOD SPECIMENOrdering Facility: [facility] Address: [address] [place] [address] Result Comment: Resu lts may be falsely depressed after the administration of Sulfasalazine and/or Sulfapyridine. Performed By: #### 2 4323-8 ####[facility] LABORATORYCLIA [id number] [place] [address] [place] Bilirubin [Mass/Vol] 1.4 mg/dL High 0.2-1.0 [facility] Comment on above: Order Comment: Speci men Type: BLOOD SPECIMENOrdering Facility: [facility] Address: [address] [place] [address] Performed By: #### 2 4323-8 ####[facility] LABORATORYCLIA [id number] [place] [address] [place] Calcium [Mass/Vol] 9.5 mg/dL Normal 8.5-10.5 [facility] Comment on above: Order Comment: Speci men Type: BLOOD SPECIMENOrdering Facility: [facility] Address: [address] [place] [address] Performed By: #### 2 4323-8 ####[facility] LABORATORYCLIA [id number] [place] [address] [place] Chloride [Moles/Vol] 100 mmol/L Normal 98-107 [facility] Comment on above: Order Comment: Speci men Type: BLOOD SPECIMENOrdering Facility: [facility] Address: [address] [place] [address] Performed By: #### 2 4323-8 ####[facility] LABORATORYCLIA [id number] [place] [address] [place] CO2 [Moles/Vol] 25 mmol/L Normal 21-32 [facility] Comment on above: Order Comment: Speci men Type: BLOOD SPECIMENOrdering Facility: [facility] Address: [address] [place] [address] Performed By: #### 2 4323-8 ####[facility] LABORATORYCLIA [id number] [place] [address] [place] Creatinine [Mass/Vol] 2.02 mg/dL High 0.51-0.95 [facility] Comment on above: Order Comment: Speci men Type: BLOOD SPECIMENOrdering Facility: [facility] Address: [address] [place] [id number] Result Comment: Mayda ents receiving either N-Acetylcysteine (NAC) or Metamizole prior to venipuncture, may have falsely depressed results. Performed By: #### 2 4323-8 ####[facility] LABORATORYCLIA [id number] [place] [address] [place] Creatinine and Glomerular filtration rate.predicted panel (S/P/Bld) 26 mL/min/1.73m??? Low >=60 [facility] Comment on above: Order Comment: Abdon lyles Type: BLOOD SPECIMENOrdering Facility: [facility] Address: [address] [place] [address] Result Comment: Judith mated Glomerular Filtration Rate [...] actual GFR. Performed By: #### 2 4323-8 ####[facility] LABORATORYCLIA [id number] [place] [address] [place] Glucose [Mass/Vol] 97 mg/dL Normal 70-100 [facility] Comment on above: Order Comment: Abdon lyles Type: BLOOD SPECIMENOrdering Facility: [facility] Address: [address] [place] [address] Result Comment: The [place] [employer] (ADA) provides guidance for cutoff [...] Standards of Medical Care in Diabetes 2016, [place] [employer]. Diabetes Care. 2016.39(Suppl 1).Results may be falsely elevated after the administration of Sulfapyridine.Results may be falsely depressed after the administration of Sulfasalazine. Performed By: #### 2 4323-8 ####[facility] LABORATORYCLIA [id number] [place] [address] [place] Potassium [Moles/Vol] 4.4 mmol/L Normal 3.5-5.1 [facility] Comment on above: Order Comment: Speci men Type: BLOOD SPECIMENOrdering Facility: [facility] Address: [address] [place] [address] Performed By: #### 2 4323-8 ####[facility] LABORATORYCLIA [id number] [place] [address] [place] Protein [Mass/Vol] 8.3 g/dL Normal 6.0-8.5 [facility] Comment on above: Order Comment: Speci men Type: BLOOD SPECIMENOrdering Facility: [facility] Address: [address] [place] [address] Performed By: #### 2 4323-8 ####[facility] LABORATORYCLIA [id number] [place] [address] [place] Sodium [Moles/Vol] 134 mmol/L Low 136-145 [facility] Comment on above: Order Comment: Speci men Type: BLOOD SPECIMENOrdering Facility: [facility] Address: [address] [place] [address] Performed By: #### 2 4323-8 ####[facility] LABORATORYCLIA [id number] [place] [address] [place] Urea nitrogen [Mass/Vol] 21 mg/dL Normal 7-26 [facility] Comment on above: Order Comment: Speci men Type: BLOOD SPECIMENOrdering Facility: [facility] Address: [address] [place] [address] Performed By: #### 2 4323-8 ####[facility] LABORATORYCLIA [id number] [address] OF [facility] ED Triage Noteon 01-12-2025 ED Triage Note Normal [facility] IR EXCHANGE NEPH TUBE BILATo n 01-12-2025 IR EXCHANGE NEPH TUBE BILAT Normal [facility] NURSING PROGon 01-12-2025 NURSING PROG Normal [facility] Resp path 12a Pnl Spec BOBBI+p robeon 01-12-2025 Respiratory pathogens DNA and RNA 12a panel BOBBI+probe (Unsp spec) Abnormal [facility] Comment on above: Performed By: #### 6 00-7, 78789-5 ####[facility] LABORATORYCLIA [id number] [address] OF [facility] SEPSIS LACTATE W/ REFLEX (IN ITIAL)on 01-12-2025 Lactate [Moles/Vol] 1.0 mmol/L Normal 0.4-2.0 [facility] Comment on above: Order Comment: Speci men Type: BLOOD SPECIMENOrdering Facility: [facility] Address: [address] [place] [address] Performed By: #### S LACTR ####[facility] LABORATORYCLIA [id number] [address] [facility] Absolute lymphocyte countOrd ered By: Hunter Olvera on 01-07-2025 Lymphocytes Auto (Unsp spec) [#/Vol] 5.09 10*3/uL High 0.83-4.51 [facility] Absolute neutrophil countOrd ered By: Hunter Olvera on 01-07-2025 Neutrophils (Bld) [#/Vol] 5.7 10*3/uL 2.0-7.7 [facility] Automated lymphocyte count a s percentage of total leukocytesOrdered By: Hunter Olvera on 01-07-2025 Lymphocytes/100 WBC Auto (Unsp spec) 42.9 % High 19-41 [facility] Basophil percentageOrdered B y: Hunter Olvera on 01-07-2025 Basophils/100 WBC (Bld) 0.7 % 0-1 [facility] Blood urea nitrogen (BUN)/cr eatinine ratioOrdered By: Hunter Olvera on 01-07-2025 Urea nitrogen/Creatinine [Mass ratio] 11.3 mg/mg 10-20 [facility] Carbon dioxide measurementOr dered By: Hunter Olvera on 01-07-2025 CO2 [Moles/Vol] 24.0 mmol/L 21.0-32.0 [facility] Chloride measurementOrdered By: Hunter Olvera on 01-07-2025 Chloride [Moles/Vol] 106 mmol/L 98-107 [facility] Eosinophil percentageOrdered By: Hunter Olvera on 01-07-2025 Eosinophils/100 WBC (Bld) 1.2 % 0-5 [facility] Erythrocyte distribution wid th ratioOrdered By: Hunter Olvera on 01-07-2025 Erythrocyte distribution width (RBC) [Ratio] 13.5 % 11.6-14.6 [facility] Erythrocyte distribution wid th standard deviationOrdered By: Hunter Olvera on 01-07-2025 Erythrocyte distribution width (RBC) [Entitic vol] 44.8 fL High 35.1-43.9 [facility] Erythrocyte distribution width (RBC) [Ratio] 44.8 fl High 35.1-43.9 [facility] Estimated glomerular filtrat ion rate (GFR) AmericanOrdered By: Hunter Olvera on 01-07-2025 Estimated GFR (MDRD) Amer 29 mL/min Low >60 [facility] Comment on above: GFR Calc Glomerular filtration rate ( GFR) estimationOrdered By: Hunter Olvera on 01-07-2025 Estimated GFR (MDRD) Non-Af Amer 24 mL/min Low >60 [facility] Comment on above: Non- GFR Calc GFR/1.73 sq M.predicted among non-blacks MDRD (S/P/Bld) [Vol rate/Area] 24 mL/min/{1.73_m2} Low >60 [facility] Comment on above: Non- GFR Calc Glucose measurementOrdered B y: Hunter Olvera on 01-07-2025 Glucose [Mass/Vol] 106 mg/dL 74-106 [facility] Comment on above: Fasting Glucose resu lt from 100 to 125 mg/dL suggests IMPAIRED HOMEOSTASIS per A.D.A. criteria. Hematocrit Auto (Bld) [Volum e fraction]Ordered By: Hunter Olvera on 01-07-2025 Hematocrit (Bld) [Volume fraction] 43.6 % 37-47 [facility] Hemoglobin A1c percentageOrd ered By: Hunter Olvera on 01-07-2025 HbA1c (Bld) [Mass fraction] 5.6 % 3.8-5.6 [facility] Comment on above: Normal < 5.7 % Predi abetic 5.7 - 6.4 % Diabetic >or= 6.5 % Please note range changes. Hemoglobin measurementOrdere d By: Hunter Olvera on 01-07-2025 Hemoglobin (Bld) [Mass/Vol] 14.1 g/dL 12.0-15.0 [facility] Immature granulocytes/100 WB C Auto (Bld)Ordered By: Hunter Olvera on 01-07-2025 Immature granulocytes/100 WBC (Bld) 0.300 % 0.0-0.9 [facility] Comment on above: IG% - Immature Granu locytes (promyelocytes, myelocytes and metamyelocytes) > 1% indicates that a LEFT SHIFT is Present. Lymphocytes Auto (Unsp spec) [#/Vol]Ordered By: Hunter Olvera on 01-07-2025 Lymphocytes (Bld) [#/Vol] 5.09 10*3/uL High 0.83-4.51 [facility] Lymphocytes/100 WBC Auto (Un sp spec)Ordered By: Hunter Olvera on 01-07-2025 Lymphocytes/100 WBC (Bld) 42.9 % High 19-41 [facility] MCV (mean corpuscular volume ) determinationOrdered By: Hutner Olvera on 01-07-2025 MCV (RBC) [Entitic vol] 90.1 fL 81-99 [facility] Mean corpuscular hemoglobin (MCH) determinationOrdered By: Hunter Olvera on 01-07-2025 MCH (RBC) [Entitic mass] 29.1 pg 27.0-32.0 [facility] Mean corpuscular hemoglobin concentration (MCHC) determinationOrdered By: Hunter Olvera on 01-07-2025 MCHC (RBC) [Mass/Vol] 32.3 g/dL 32-36 [facility] Mean platelet volume determi nationOrdered By: Hunter Olvear on 01-07-2025 Platelet mean volume (Bld) [Entitic vol] 9.8 fL 6.2-12.0 [facility] Monocyte percentageOrdered B y: Hunter Olvera on 01-07-2025 Monocytes/100 WBC (Bld) 6.8 % 0-10 [facility] Neutrophil percentageOrdered By: Hunter Olvera on 01-07-2025 Neutrophils/100 WBC (Bld) 48.1 % 47-70 [facility] Nucleated red blood cell per centageOrdered By: Hunter Olvera on 01-07-2025 Nucleated RBC/100 WBC (Bld) [Ratio] 0 % 0-5 [facility] Phosphorus measurementOrdere d By: Hunter Olvera on 01-07-2025 Phosphorus Level 3.8 mg/dL 2.5-4.9 [facility] Platelet countOrdered By: Shayan Olvera on 01-07-2025 Platelets (Bld) [#/Vol] 364 10*3/uL 150-450 [facility] Potassium measurementOrdered By: Hunter Olvera on 01-07-2025 Potassium [Moles/Vol] 4.4 mmol/L 3.5-5.1 [facility] Protein/Creatinine (U) [Mass ratio]Ordered By: Hunter Olvera on 01-07-2025 Urine Protein/Creatinine Ratio 1750 mg/g CRE High 0-200 [facility] RBC Auto (Bld) [#/Vol]Ordere d By: Hunter Olvera on 01-07-2025 RBC (Bld) [#/Vol] 4.84 10*6/uL 4.2-5.4 [facility] Random urine protein measure mentOrdered By: Hunter Olvera on 01-07-2025 Protein (U) [Mass/Vol] 158.9 mg/dL High 0.0-11.8 [facility] Reactive lymphocyte countOrd ered By: Hunter Olvera on 01-07-2025 Reactive Lymphocytes 1+ [facility] Serum or plasma albumin yunior urement (mass/volume)Ordered By: Hunter Olvera on 01-07-2025 Albumin [Mass/Vol] 3.0 g/dL Low 3.2-5.0 [facility] Serum or plasma calcium yunior urement (mass/volume)Ordered By: Hunter Olvera on 01-07-2025 Calcium [Mass/Vol] 8.9 mg/dL 8.5-10.1 [facility] Serum or plasma creatinine m easurement (mass/volume)Ordered By: Hunter Olvera on 01-07-2025 Creatinine [Mass/Vol] 2.12 mg/dL High 0.55-1.02 [facility] Comment on above: The validity of the calculated GFR & GFRAA in patients over 70 years has not been determined. Clinical correlation is essential. Serum or plasma urea nitroge n measurement (mass/volume)Ordered By: Hunter Olvera on 01-07-2025 Urea nitrogen [Mass/Vol] 24 mg/dL High 7-18 [facility] Sodium levelOrdered By: Jack Olvera on 01-07-2025 Sodium [Moles/Vol] 137 mmol/L 136-145 [facility] Urine creatinine measurement (mass/volume)Ordered By: Hunter Olvera on 01-07-2025 Creatinine (U) [Mass/Vol] 90.80 mg/dL NO RANGE EST. [facility] Urine protein/creatinine mas s ratioOrdered By: Hunter Olvera on 01-07-2025 Protein/Creatinine (U) [Mass ratio] 1750 mg/g CRE High 0-200 [facility] White blood cell (WBC) count Ordered By: Hunter Olvera on 01-07-2025 WBC (Bld) [#/Vol] 11.9 10*3/uL High 4.4-11.0 [facility] CNOVon 12-22-2024 CNOV Normal [facility] Basic metabolic 2000 panelon 12-06-2024 Anion gap [Moles/Vol] 5 mmol/L Normal 5-16 [facility] Comment on above: Order Comment: Speci men Type: BLOOD SPECIMENOrdering Facility: [facility] Address: [address] [place] [address] Performed By: #### 2 4321-2, 56600-0, 20002-5, 2777-1 ####[facility] LABORATORYCLIA [id number] [place] [address] [place] Calcium [Mass/Vol] 8.9 mg/dL Normal 8.5-10.5 [facility] Comment on above: Order Comment: Speci men Type: BLOOD SPECIMENOrdering Facility: [facility] Address: [address] [place] [address] Performed By: #### 2 4321-2, 02903-1, 92516-4, 2776-1 ####[facility] LABORATORYCLIA [id number] [place] [id number] [place] Chloride [Moles/Vol] 109 mmol/L High 98-107 [facility] Comment on above: Order Comment: Speci men Type: BLOOD SPECIMENOrdering Facility: [facility] Address: [address] [place] [address] Performed By: #### 2 4321-2, 54397-6, , 2776- ####[facility] LABORATORYCLIA [id number] [place] [id number] [place] CO2 [Moles/Vol] 24 mmol/L Normal 21-32 [facility] Comment on above: Order Comment: Speci men Type: BLOOD SPECIMENOrdering Facility: [facility] Address: [address] [place], [place] [address] Performed By: #### 2 4321-2, 71534-3, , 2776-11 ####[facility] LABORATORYCLIA [id number] [place] [id number] [place] Creatinine [Mass/Vol] 1.77 mg/dL High 0.51-0.95 [facility] Comment on above: Order Comment: Speci men Type: BLOOD SPECIMENOrdering Facility: [facility] Address: [address] [place] [address] Result Comment: Mayda ents receiving either N-Acetylcysteine (NAC) or Metamizole prior to venipuncture, may have falsely depressed results. Performed By: #### 2 4321-2, 42652-8, 85988-0, 1 ####[facility] LABORATORYCLIA [id number] [place] [id number] [facility] [place] Creatinine and Glomerular filtration rate.predicted panel (S/P/Bld) 30 mL/min/1.73m??? Low >=60 [facility] Comment on above: Order Comment: Speci men Type: BLOOD SPECIMENOrdering Facility: [facility] Address: [address] [place] [address] Result Comment: Judith mated Glomerular Filtration Rate [...] actual GFR. Performed By: #### 2 4321-2, 88654-3, 02133-6, 2776-11 ####[facility] LABORATORYCLIA [id number] [place] [id number] [place] Glucose [Mass/Vol] 78 mg/dL Normal 70-100 [facility] Comment on above: Order Comment: Abdon lyles Type: BLOOD SPECIMENOrdering Facility: [facility] Address: [address] [place] [address] Result Comment: The [place] [employer] (ADA) provides guidance for cutoff [...] Standards of Medical Care in Diabetes 2016, [place] [employer]. Diabetes Care. 2016.39(Suppl 1).Results may be falsely elevated after the administration of Sulfapyridine.Results may be falsely depressed after the administration of Sulfasalazine. Performed By: #### 2 4321-2, 26434-8, , 2776-11 ####[facility] LABORATORYCLIA [id number] [place] [id number] [place] Potassium [Moles/Vol] 4.2 mmol/L Normal 3.5-5.1 [facility] Comment on above: Order Comment: Speci men Type: BLOOD SPECIMENOrdering Facility: [facility] Address: [address] [place] [address] Performed By: #### 2 4321-2, 03596-7, 88279-9, 1 ####[facility] LABORATORYCLIA [id number] [place] [id number] [place] Sodium [Moles/Vol] 138 mmol/L Normal 136-145 [facility] Comment on above: Order Comment: Speci men Type: BLOOD SPECIMENOrdering Facility: [facility] Address: [address] [place] [address] Performed By: #### 2 4321-2, 09246-2, , 2776-11 ####[facility] LABORATORYCLIA [id number] [place] [id number] [place] Urea nitrogen [Mass/Vol] 20 mg/dL Normal 7-26 [facility] Comment on above: Order Comment: Speci men Type: BLOOD SPECIMENOrdering Facility: [facility] Address: [address] [place] [address] Performed By: #### 2 4321-2, 76301-4, , 2776-11 ####[facility] LABORATORYCLIA [id number] [place] [id number] [place] CBC panel Auto (Bld)on 12-06 Erythrocyte distribution width (RBC) [Ratio] 13.8 % Normal 11.5-15.0 [facility] Comment on above: Order Comment: Speci men Type: BLOOD SPECIMENOrdering Facility: [facility] Address: [address] [place] [address] Performed By: #### 5 8410-2 ####[facility] LABORATORYCLIA [id number] [place] [id number] [place] Hematocrit (Bld) [Volume fraction] 36.5 % Normal 36.0-46.0 [facility] Comment on above: Order Comment: Speci men Type: BLOOD SPECIMENOrdering Facility: [facility] Address: [address] [place] [address] Performed By: #### 5 8410-2 ####[facility] LABORATORYCLIA [id number] [place] [address] [place] Hemoglobin (Bld) [Mass/Vol] 11.9 g/dL Normal 11.5-15.5 [facility] Comment on above: Order Comment: Speci men Type: BLOOD SPECIMENOrdering Facility: [facility] Address: [address] [place] [address] Performed By: #### 5 8410-2 ####[facility] LABORATORYCLIA [id number] [place] [address] [place] MCH (RBC) [Entitic mass] 29.4 pg Normal 26.0-34.0 [facility] Comment on above: Order Comment: Speci men Type: BLOOD SPECIMENOrdering Facility: [facility] Address: [address] [place] [address] Performed By: #### 5 8410-2 ####[facility] LABORATORYCLIA [id number] [address] [place] MCHC (RBC) [Mass/Vol] 32.6 g/dL Normal 30.5-36.0 [facility] Comment on above: Order Comment: Speci men Type: BLOOD SPECIMENOrdering Facility: [facility] Address: [address] [place] [address] Performed By: #### 5 8410-2 ####[facility] LABORATORYCLIA [id number] [place] [address] [place] MCV (RBC) [Entitic vol] 90.1 fL Normal 80.0-100.0 [facility] Comment on above: Order Comment: Speci men Type: BLOOD SPECIMENOrdering Facility: [facility] Address: [address] [place] [address] Performed By: #### 5 8410-2 ####[facility] LABORATORYCLIA [id number] [place] [address] [place] Nucleated RBC (Bld) [#/Vol] 10*3/uL Normal <0.01 [facility] Comment on above: Order Comment: Speci men Type: BLOOD SPECIMENOrdering Facility: [facility] Address: [address] [place] [address] Performed By: #### 5 8410-2 ####[facility] LABORATORYCLIA [id number] [place] [id number] [place] Platelet mean volume (Bld) [Entitic vol] 9.6 fL Normal 9.0-12.7 [facility] Comment on above: Order Comment: Speci men Type: BLOOD SPECIMENOrdering Facility: [facility] Address: [address] [place] [address] Performed By: #### 5 8410-2 ####[facility] LABORATORYCLIA [id number] [place] [id number] [place] Platelets (Bld) [#/Vol] 370 10*3/uL Normal 150-400 [facility] Comment on above: Order Comment: Speci men Type: BLOOD SPECIMENOrdering Facility: [facility] Address: [address] [place] [address] Performed By: #### 5 8410-2 ####[facility] LABORATORYCLIA [id number] [place] [address] [place] RBC (Bld) [#/Vol] 4.05 10*6/uL Normal 3.90-5.20 [facility] Comment on above: Order Comment: Speci men Type: BLOOD SPECIMENOrdering Facility: [facility] Address: [address] [place] [address] Performed By: #### 5 8410-2 ####[facility] LABORATORYCLIA [id number] [place] [id number] [place] WBC (Bld) [#/Vol] 11.74 10*3/uL High 3.70-11.00 [facility] Comment on above: Order Comment: Speci men Type: BLOOD SPECIMENOrdering Facility: [facility] Address: [address] [place] [address] Performed By: #### 5 8410-2 ####[facility] LABORATORYCLIA [id number] [place] [address] [place] CNDSon 12-06-2024 CNDS Normal [facility] Hepatic function 2000 panelo n 12-06-2024 Albumin [Mass/Vol] 2.5 g/dL Low 3.2-5.0 [facility] Comment on above: Order Comment: Speci men Type: BLOOD SPECIMENOrdering Facility: [facility] Address: [address] [place] [address] Performed By: #### 2 4321-2, 89701-6, 60614-6, 277-1 ####[facility] LABORATORYCLIA [id number] [place] [id number] [place] ALP [Catalytic activity/Vol] 127 U/L High 45-117 [facility] Comment on above: Order Comment: Speci men Type: BLOOD SPECIMENOrdering Facility: [facility] Address: [address] [place] [address] Performed By: #### 2 4321-2, 43463-4, 99101-0, 277-1 ####[facility] LABORATORYCLIA [id number] [place] [id number] [place] ALT [Catalytic activity/Vol] U/L Low 13-61 [facility] Comment on above: Order Comment: Speci men Type: BLOOD SPECIMENOrdering Facility: [facility] Address: [address] [place] [address] Result Comment: Resu lts may be falsely depressed after the administration of Sulfasalazine and/or Sulfapyridine. Performed By: #### 2 4321-2, 46951-7, 02099-3, 277-1 ####[facility] LABORATORYCLIA [id number] [place] [id number] [place] AST [Catalytic activity/Vol] 13 U/L Normal 8-34 [facility] Comment on above: Order Comment: Speci men Type: BLOOD SPECIMENOrdering Facility: [facility] Address: [address] [place] [address] Result Comment: Resu lts may be falsely depressed after the administration of Sulfasalazine and/or Sulfapyridine. Performed By: #### 2 4321-2, 87772-3, , 2776-11 ####[facility] LABORATORYCLIA [id number] [place] [id number] [place] Bilirubin [Mass/Vol] 0.6 mg/dL Normal 0.2-1.0 [facility] Comment on above: Order Comment: Speci men Type: BLOOD SPECIMENOrdering Facility: [facility] Address: [address] [place] [address] Performed By: #### 2 4321-2, 46298-4, , 2776-11 ####[facility] LABORATORYCLIA [id number] [place] [id number] [place] Bilirubin.conjugated [Mass/Vol] 0.2 mg/dL Normal 0.0-0.4 [facility] Comment on above: Order Comment: Speci men Type: BLOOD SPECIMENOrdering Facility: [facility] Address: [address] [place] [address] Performed By: #### 2 4321-2, 13110-5, , 2776-11 ####[facility] LABORATORYCLIA [id number] [place] [id number] [place] Protein [Mass/Vol] 6.9 g/dL Normal 6.0-8.5 [facility] Comment on above: Order Comment: Speci men Type: BLOOD SPECIMENOrdering Facility: [facility] Address: [address] [place], [place] [address] Performed By: #### 2 4321-2, 73668-4, , 2776-11 ####[facility] LABORATORYCLIA [id number] [place] [id number] [place] Magnesium SerPl-mCncon 12-06 Magnesium [Mass/Vol] 1.7 mg/dL Normal 1.6-2.6 [facility] Comment on above: Order Comment: Speci men Type: BLOOD SPECIMENOrdering Facility: [facility] Address: [address] [place] [id number] Performed By: #### 2 4321-2, 59049-5, 27677-8, 2777-1 ####[facility] LABORATORYCLIA [id number] [place] [id number] [place] Phosphate SerPl-mCncon 12-06 Phosphate [Mass/Vol] 4.6 mg/dL Normal 2.5-4.9 [facility] Comment on above: Order Comment: Speci men Type: BLOOD SPECIMENOrdering Facility: [facility] Address: [address] [place] [address] Result Comment: Elev ated m-protein (paraprotein) levels in the serum may be exhibited in patients with monoclonal gammopathies, causing falsely elevated inorganic phosphorus results. Performed By: #### 2 4321-2, 59474-0, 45320-5, 2777-1 ####[facility] LABORATORYCLIA [id number] [place] [id number] [facility] ALLIED HEALTHon 12-05-2024 ALLIED HEALTH Normal [facility] BRIEF OP NOTon 12-05-2024 BRIEF OP NOT Normal [facility] Bacteria Ur Culton Bacteria identified Cx Nom (U) ORGANISM ID: 1 >=100,000 CFU/ml Mixed microbiota including 3 different colony types, and no one type predominating. No further workup. Normal [facility] Comment on above: Performed By: #### 6 30-4 ####[facility] LABORATORYCLIA [id number] [address] [place] Bacteria identified Cx Nom (U) Normal [facility] Comment on above: Performed By: #### 2 4356-8, 630-4 ####[facility] LABORATORYIA [id number] [address] [place] CBC W Auto Differential pane l (Bld)on 12-05-2024 Basophils (Bld) [#/Vol] 0.00 10*3/uL Normal <0.11 [facility] Comment on above: Order Comment: Speci men Type: BLOOD SPECIMENOrdering Facility: [facility] Address: [address] [place] [address] Performed By: #### 5 7021-8, STFREV ####[facility] LABORATORYCLIA [id number] [place] [address] [place] Basophils/100 WBC (Bld) 0.0 % Normal [facility] Comment on above: Order Comment: Speci men Type: BLOOD SPECIMENOrdering Facility: [facility] Address: [address] [place] [address] Performed By: #### 5 7021-8, STFREV ####[facility] LABORATORYCLIA [id number] [place] [address] [facility] [place] Differential cell count method Nom (Bld) Manual Normal [facility] Comment on above: Order Comment: Speci men Type: BLOOD SPECIMENOrdering Facility: [facility] Address: [address] [place] [address] Performed By: #### 5 7021-8, STFREV ####[facility] LABORATORYCLIA [id number] [place] [address] [place] Eosinophils (Bld) [#/Vol] 0.12 10*3/uL Normal <0.46 [facility] Comment on above: Order Comment: Speci men Type: BLOOD SPECIMENOrdering Facility: [facility] Address: [address] [place] [address] Performed By: #### 5 7021-8, STFREV ####[facility] LABORATORYCLIA [id number] [place] [address] [place] Eosinophils/100 WBC (Bld) 1.0 % Normal [facility] Comment on above: Order Comment: Speci men Type: BLOOD SPECIMENOrdering Facility: [facility] Address: [address] [place] [address] Performed By: #### 5 7021-8, STFREV ####[facility] LABORATORYCLIA [id number] [place] [address] [place] Erythrocyte distribution width (RBC) [Ratio] 13.7 % Normal 11.5-15.0 [facility] Comment on above: Order Comment: Speci men Type: BLOOD SPECIMENOrdering Facility: [facility] Address: [address] [place] [address] Performed By: #### 5 7021-8, STFREV ####[facility] LABORATORYCLIA [id number] [place] [address] [place] Hematocrit (Bld) [Volume fraction] 41.7 % Normal 36.0-46.0 [facility] Comment on above: Order Comment: Speci men Type: BLOOD SPECIMENOrdering Facility: [facility] Address: [address] [place] [address] Performed By: #### 5 7021-8, STFREV ####[facility]ORATORYCLIA [id number] [place] [address] [place] Hemoglobin (Bld) [Mass/Vol] 13.6 g/dL Normal 11.5-15.5 [facility] Comment on above: Order Comment: Speci men Type: BLOOD SPECIMENOrdering Facility: [facility] Address: [address] [place] [address] Performed By: #### 5 7021-8, STFREV ####[facility] LABORATORYCLIA [id number] [place] [address] [place] Lymphocytes (Bld) [#/Vol] 7.13 10*3/uL High 1.00-4.00 [facility] Comment on above: Order Comment: Speci men Type: BLOOD SPECIMENOrdering Facility: [facility] Address: [address] [place] [address] Performed By: #### 5 7021-8, STFREV ####[facility] LABORATORYCLIA [id number] [place] [address] [place] Lymphocytes/100 WBC (Bld) 58.0 % Normal [facility] Comment on above: Order Comment: Speci men Type: BLOOD SPECIMENOrdering Facility: [facility] Address: [address] [place], [place] [address] Performed By: #### 5 7021-8, STFREV ####[facility] LABORATORYCLIA [id number] [address] [place] MCH (RBC) [Entitic mass] 29.5 pg Normal 26.0-34.0 [facility] Comment on above: Order Comment: Speci men Type: BLOOD SPECIMENOrdering Facility: [facility] Address: [address] [place] [address] Performed By: #### 5 7021-8, STFREV ####[facility] LABORATORYCLIA [id number] [place] [address] [place] MCHC (RBC) [Mass/Vol] 32.6 g/dL Normal 30.5-36.0 [facility] Comment on above: Order Comment: Speci men Type: BLOOD SPECIMENOrdering Facility: [facility] Address: [address] [place] [address] Performed By: #### 5 7021-8, STFREV ####[facility] LABORATORYCLIA [id number] [place] [address] [place] MCV (RBC) [Entitic vol] 90.5 fL Normal 80.0-100.0 [facility] Comment on above: Order Comment: Speci men Type: BLOOD SPECIMENOrdering Facility: [facility] Address: [address] [place] [address] Performed By: #### 5 7021-8, STFREV ####[facility]ORATORYCLIA [id number] [address] [place] Monocytes (Bld) [#/Vol] 0.74 10*3/uL Normal <0.87 [facility] Comment on above: Order Comment: Speci men Type: BLOOD SPECIMENOrdering Facility: [facility] Address: [address] [place] [address] Performed By: #### 5 7021-8, STFREV ####[facility] LABORATORYCLIA [id number] [place] [address] [place] Monocytes/100 WBC (Bld) 6.0 % Normal [facility] Comment on above: Order Comment: Speci men Type: BLOOD SPECIMENOrdering Facility: [facility] Address: [address] [place] [address] Performed By: #### 5 7021-8, STFREV ####[facility] LABORATORYCLIA [id number] [place] [address] [place] Neutrophils (Bld) [#/Vol] 4.30 10*3/uL Normal 1.45-7.50 [facility] Comment on above: Order Comment: Speci men Type: BLOOD SPECIMENOrdering Facility: [facility] Address: [address] [place] [address] Performed By: #### 5 7021-8, STFREV ####[facility] LABORATORYCLIA [id number] [place] [address] [place] Neutrophils/100 WBC (Bld) 35.0 % Normal [facility] Comment on above: Order Comment: Speci men Type: BLOOD SPECIMENOrdering Facility: [facility] Address: [address] [place] [address] Performed By: #### 5 7021-8, STFREV ####[facility] LABORATORYCLIA [id number] [place] [address] [place] Nucleated RBC (Bld) [#/Vol] 10*3/uL Normal <0.01 [facility] Comment on above: Order Comment: Speci men Type: BLOOD SPECIMENOrdering Facility: [facility] Address: [address] [place] [address] Performed By: #### 5 7021-8, STFREV ####[facility] LABORATORYCLIA [id number] [place] [address] [place] Nucleated RBC/100 WBC (Bld) [Ratio] 0.0 /100 WBC Normal [facility] Comment on above: Order Comment: Speci men Type: BLOOD SPECIMENOrdering Facility: [facility] Address: [address] [place] [address] Performed By: #### 5 7021-8, STFREV ####[facility] LABORATORYCLIA [id number] [place] [address] [place] Ovalocytes LM Ql (Bld) Few Normal [facility] Comment on above: Order Comment: Speci men Type: BLOOD SPECIMENOrdering Facility: [facility] Address: [address] [place] [address] Performed By: #### 5 7021-8, STFREV ####[facility] LABORATORYCLIA [id number] [place] [address] [place] Platelet mean volume (Bld) [Entitic vol] 9.3 fL Normal 9.0-12.7 [facility] Comment on above: Order Comment: Speci men Type: BLOOD SPECIMENOrdering Facility: [facility] Address: [address] [place] [address] Performed By: #### 5 7021-8, STFREV ####[facility] LABORATORYCLIA [id number] [place] [address] [place] Platelets (Bld) [#/Vol] 423 10*3/uL High 150-400 [facility] Comment on above: Order Comment: Speci men Type: BLOOD SPECIMENOrdering Facility: [facility] Address: [address] [place] [address] Performed By: #### 5 7021-8, STFREV ####[facility] LABORATORYCLIA [id number] [place] [address] [place] Platelets Estimate (Bld) [#/Vol] Increased Normal [facility] Comment on above: Order Comment: Speci men Type: BLOOD SPECIMENOrdering Facility: [facility] Address: [address] [place] [address] Performed By: #### 5 7021-8, STFREV ####[facility] LABORATORYCLIA [id number] [place] [id number] [place] Polychromasia LM Ql (Bld) Slight Normal [facility] Comment on above: Order Comment: Speci men Type: BLOOD SPECIMENOrdering Facility: [facility] Address: [address] [place] [address] Performed By: #### 5 7021-8, STFREV ####[facility] LABORATORYCLIA [id number] [place] [id number] [facility] [place] RBC (Bld) [#/Vol] 4.61 10*6/uL Normal 3.90-5.20 [facility] Comment on above: Order Comment: Speci men Type: BLOOD SPECIMENOrdering Facility: [facility] Address: [address] [place] [address] Performed By: #### 5 7021-8, STFREV ####[facility] LABORATORYCLIA [id number] [place] [address] [place] [facility] RED CELL MORPH Reviewed: see result s of individual morphologies Normal [facility] Comment on above: Order Comment: Speci men Type: BLOOD SPECIMENOrdering Facility: [facility] Address: [address] [place] [address] Performed By: #### 5 7021-8, STFREV ####[facility] LABORATORYCLIA [id number] [place] [address] [place] WBC (Bld) [#/Vol] 12.29 10*3/uL High 3.70-11.00 [facility] Comment on above: Order Comment: Speci men Type: BLOOD SPECIMENOrdering Facility: [facility] Address: [address] [place] [address] Performed By: #### 5 7021-8, STFREV ####[facility] LABORATORYCLIA [id number] [place] [address] [place] CONSULTon 12-05-2024 CONSULT Normal [facility] CT ABD/PEL WO IVCONon 2024 CT ABD/PEL WO IVCON Normal [facility] Comprehensive metabolic 2000 panelon 12-05-2024 Albumin [Mass/Vol] 2.9 g/dL Low 3.2-5.0 [facility] Comment on above: Order Comment: Speci men Type: BLOOD SPECIMENOrdering Facility: [facility] Address: [address] [place] [address] Performed By: #### 2 4323-8 ####[facility] LABORATORYCLIA [id number] [place] [address] [place] ALP [Catalytic activity/Vol] 144 U/L High 45-117 [facility] Comment on above: Order Comment: Speci men Type: BLOOD SPECIMENOrdering Facility: [facility] Address: [address] [place] [address] Performed By: #### 2 4323-8 ####[facility] LABORATORYCLIA [id number] [place] [address] [place] ALT [Catalytic activity/Vol] U/L Low 13-61 [facility] Comment on above: Order Comment: Speci men Type: BLOOD SPECIMENOrdering Facility: [facility] Address: [address] [place] [address] Result Comment: Resu lts may be falsely depressed after the administration of Sulfasalazine and/or Sulfapyridine. Performed By: #### 2 4323-8 ####[facility] LABORATORYCLIA [id number] [place] [address] [place] Anion gap [Moles/Vol] 10 mmol/L Normal 5-16 [facility] Comment on above: Order Comment: Speci men Type: BLOOD SPECIMENOrdering Facility: [facility] Address: [address] [place] [address] Performed By: #### 2 4323-8 ####[facility] LABORATORYCLIA [id number] [place] [address] [place] AST [Catalytic activity/Vol] 15 U/L Normal 8-34 [facility] Comment on above: Order Comment: Speci men Type: BLOOD SPECIMENOrdering Facility: [facility] Address: [address] [place] [address] Result Comment: Resu lts may be falsely depressed after the administration of Sulfasalazine and/or Sulfapyridine. Performed By: #### 2 4323-8 ####[facility] LABORATORYCLIA [id number] [place] [address] [place] Bilirubin [Mass/Vol] 0.2 mg/dL Normal 0.2-1.0 [facility] Comment on above: Order Comment: Speci men Type: BLOOD SPECIMENOrdering Facility: [facility] Address: [address] [place] [address] Performed By: #### 2 4323-8 ####[facility] LABORATORYCLIA [id number] [place] [address] [place] Calcium [Mass/Vol] 9.1 mg/dL Normal 8.5-10.5 [facility] Comment on above: Order Comment: Speci men Type: BLOOD SPECIMENOrdering Facility: [facility] Address: [address] [place] [address] Performed By: #### 2 4323-8 ####[facility] LABORATORYCLIA [id number] [place] [address] [place] Chloride [Moles/Vol] 103 mmol/L Normal 98-107 [facility] Comment on above: Order Comment: Speci men Type: BLOOD SPECIMENOrdering Facility: [facility] Address: [address] [place] [address] Performed By: #### 2 4323-8 ####[facility] LABORATORYCLIA [id number] [place] [address] [place] CO2 [Moles/Vol] 27 mmol/L Normal 21-32 [facility] Comment on above: Order Comment: Speci men Type: BLOOD SPECIMENOrdering Facility: [facility] Address: [address] [place] [address] Performed By: #### 2 4323-8 ####[facility] LABORATORYCLIA [id number] [place] [address] [place] Creatinine [Mass/Vol] 1.85 mg/dL High 0.51-0.95 [facility] Comment on above: Order Comment: Speci men Type: BLOOD SPECIMENOrdering Facility: [facility] Address: [address] [place] [address] Result Comment: Mayda ents receiving either N-Acetylcysteine (NAC) or Metamizole prior to venipuncture, may have falsely depressed results. Performed By: #### 2 4323-8 ####[facility] LABORATORYCLIA [id number] [place] [address] [place] Creatinine and Glomerular filtration rate.predicted panel (S/P/Bld) 29 mL/min/1.73m??? Low >=60 [facility] Comment on above: Order Comment: Abdon lyles Type: BLOOD SPECIMENOrdering Facility: [facility] Address: [address] [place] [address] Result Comment: Judith mated Glomerular Filtration Rate [...] actual GFR. Performed By: #### 2 4323-8 ####[facility] LABORATORYCLIA [id number] [place] [address] [place] Glucose [Mass/Vol] 129 mg/dL High 70-100 [facility] Comment on above: Order Comment: Abdon lyles Type: BLOOD SPECIMENOrdering Facility: [facility] Address: [address] [place] [address] Result Comment: The [place] [employer] (ADA) provides guidance for cutoff [...] Standards of Medical Care in Diabetes 2016, [employer] [place] [employer]. Diabetes Care. 2016.39(Suppl 1).Results may be falsely elevated after the administration of Sulfapyridine.Results may be falsely depressed after the administration of Sulfasalazine. Performed By: #### 2 4323-8 ####[facility] LABORATORYCLIA [id number] [place] [id number] [place] Potassium [Moles/Vol] 4.2 mmol/L Normal 3.5-5.1 [facility] Comment on above: Order Comment: Speci men Type: BLOOD SPECIMENOrdering Facility: [facility] Address: [address] [place] [address] Performed By: #### 2 4323-8 ####[facility] LABORATORYCLIA [id number] [place] [id number] [place] Protein [Mass/Vol] 7.8 g/dL Normal 6.0-8.5 [facility] Comment on above: Order Comment: Speci men Type: BLOOD SPECIMENOrdering Facility: [facility] Address: [address] [place] [address] Performed By: #### 2 4323-8 ####[facility] LABORATORYCLIA [id number] [place] [id number] [place] Sodium [Moles/Vol] 140 mmol/L Normal 136-145 [facility] Comment on above: Order Comment: Speci men Type: BLOOD SPECIMENOrdering Facility: [facility] Address: [address] [place] [address] Performed By: #### 2 4323-8 ####[facility] LABORATORYCLIA [id number] [place] [id number] [place] Urea nitrogen [Mass/Vol] 22 mg/dL Normal 7-26 [facility] Comment on above: Order Comment: Speci men Type: BLOOD SPECIMENOrdering Facility: [facility] Address: [address] [place] [address] Performed By: #### 2 4323-8 ####[facility] LABORATORYCLIA [id number] [place] [id number] [place] ED PROV NOTEon 12-05-2024 ED PROV NOTE Normal [facility] HISTORY PHYSICALon 5 HISTORY PHYSICAL Normal [facility] IR NEPHROSTOGRAMon 5 IR NEPHROSTOGRAM Normal [facility] IR NEPHROSTOMY TUBE PLACEon 12-05-[address] Normal [facility] PATHOLOGIST INTERPRETATION C BC/DIFFon 12-05-2024 [place] review Pollo (Unsp spec) [Interp] Reviewed by Veronica Arredondo MD [facility] Comment on above: Order Comment: Speci men Type: BLOOD SPECIMENOrdering Facility: [facility] Address: [address] [place] [address] Performed By: #### 5 7021-8, STKARSON ####[facility] LABORATORYCLIA [id number] [address] OF [facility], CBCDIF [facility] Comment on above: Order Comment: Abdon lyles Type: BLOOD SPECIMENOrdering Facility: [facility] Address: [address] [place] [address] Result Comment: Lymp hocytic leukocytosis with reactive/atypical [...] indicated. Performed By: #### 5 7021-8, STFREV ####[facility] LABORATORYCLIA [id number] [address] [place] PT panel Coag (PPP)on 2024 INR Coag (PPP) [Relative time] 1.0 {INR} Normal 0.9-1.3 [facility] Comment on above: Order Comment: Speci men Type: BLOOD SPECIMENOrdering Facility: [facility] Address: [address] [place] [address] Result Comment: Tawanna min K Antagonist (VKA) Therapeutic Range: INR 2 to 3 (Target INR of 2.5)Note: For patients treated with VKA drugs, such as warfarin, the [employer] [place] [employer] 2012 Guideline recommends [...] 70: 252-289 Performed By: #### 3 4528-0, 54834-7 ####[facility] LABORATORYCLIA [id number] [address] [place] PT Coag (PPP) [Time] 10.9 s Normal 9.7-13.0 [facility] Comment on above: Order Comment: Speci men Type: BLOOD SPECIMENOrdering Facility: [facility] Address: [address] [place] [address] Performed By: #### 3 4528-0, 63667-2 ####[facility] LABORATORYCLIA [id number] [address] [place] SEPSIS LACTATEon 12-05-2024 Lactate [Moles/Vol] 0.7 mmol/L Normal 0.4-2.0 [facility] Comment on above: Order Comment: Speci men Type: BLOOD SPECIMENOrdering Facility: [facility] Address: [address] [place] [address] Performed By: #### S LACT ####[facility] LABORATORYCLIA [id number] [address] Urinalysis complete panel (U )on 12-05-2024 Bacteria LM.HPF (Urine sed) [#/Area] Many Abnormal None Seen [facility] Comment on above: Order Comment: Speci men Type: URINE SPECIMENOrdering Facility: [facility] Address: [address] [place] [address] Performed By: #### 2 4356-8, 630-4 ####[facility] LABORATORYCLIA [id number] [place] [id number] [place] Bilirubin Ql (U) Negative Normal Negative [facility] Comment on above: Order Comment: Speci men Type: URINE SPECIMENOrdering Facility: [facility] Address: [address] [place] [address] Performed By: #### 2 4356-8, 630-4 ####[facility] LABORATORYCLIA [id number] [address] [place] Clarity (Unsp spec) Slightly Cloudy Abnormal Clear [facility] Comment on above: Order Comment: Speci men Type: URINE SPECIMENOrdering Facility: [facility] Address: [address] [place] [address] Performed By: #### 2 4356-8, 630-4 ####[facility] LABORATORYCLIA [id number] [address] [place] Color (U) Yellow Normal Yellow [facility] Comment on above: Order Comment: Speci men Type: URINE SPECIMENOrdering Facility: [facility] Address: [address] [place] [address] Performed By: #### 2 4356-8, 630-4 ####[facility] LABORATORYCLIA [id number] [address] [place] Epithelial cells LM.HPF (Urine sed) [#/Area] None Seen Normal [facility] Comment on above: Order Comment: Speci men Type: URINE SPECIMENOrdering Facility: [facility] Address: [address] [place] [address] Result Comment: None Seen Performed By: #### 2 4356-8, 630-4 ####[facility] LABORATORYCLIA [id number] [place] [id number] [place] Glucose Test strip (U) [Mass/Vol] Negative Normal Negative [facility] Comment on above: Order Comment: Speci men Type: URINE SPECIMENOrdering Facility: [facility] Address: [address] [place] [address] Performed By: #### 2 4356-8, 630-4 ####[facility] LABORATORYCLIA [id number] [address] Hemoglobin Ql (U) 2+ Abnormal Negative [facility] Comment on above: Order Comment: Speci men Type: URINE SPECIMENOrdering Facility: [facility] Address: [address] [place] [address] Performed By: #### 2 4356-8, 630-4 ####[facility] LABORATORYCLIA [id number] [address] Ketones Ql (U) Negative Normal Negative [facility] Comment on above: Order Comment: Speci men Type: URINE SPECIMENOrdering Facility: [facility] Address: [address] [place] [address] Performed By: #### 2 4356-8, 630-4 ####[facility] LABORATORYCLIA [id number] [address] Leukocyte esterase Test strip Ql (U) 3+ Abnormal Negative [facility] Comment on above: Order Comment: Speci men Type: URINE SPECIMENOrdering Facility: [facility] Address: [address] [place] [address] Performed By: #### 2 4356-8, 630-4 ####[facility] LABORATORYCLIA [id number] [address] [place] Nitrite Ql (U) Negative Normal Negative [facility] Comment on above: Order Comment: Speci men Type: URINE SPECIMENOrdering Facility: [facility] Address: [address] [place] [address] Performed By: #### 2 4356-8, 630-4 ####[facility] LABORATORYCLIA [id number] [address] [place] pH (U) 6.5 [pH] Normal 5.0-8.0 [facility] Comment on above: Order Comment: Speci men Type: URINE SPECIMENOrdering Facility: [facility] Address: [address] [place] [address] Performed By: #### 2 4356-8, 630-4 ####[facility] LABORATORYCLIA [id number] [place] [id number] [place] Protein (U) [Mass/Vol] 2+ Abnormal Negative [facility] Comment on above: Order Comment: Speci men Type: URINE SPECIMENOrdering Facility: [facility] Address: [address] [place] [address] Performed By: #### 2 4356-8, 630-4 ####[facility] LABORATORYCLIA [id number] [place] [address] [place] RBC LM.HPF (Urine sed) [#/Area] 6-10 /HPF Abnormal 0-3 /HPF [facility] Comment on above: Order Comment: Speci men Type: URINE SPECIMENOrdering Facility: [facility] Address: [address] [place] [address] Performed By: #### 2 4356-8, 630-4 ####[facility] HOSPITALIA [id number] [address] [place] Specific gravity (U) [Rel density] 1.010 Normal 1.005-1.03 0 [facility] Comment on above: Order Comment: Speci men Type: URINE SPECIMENOrdering Facility: [facility] Address: [address] [place] [address] Performed By: #### 2 4356-8, 630-4 ####[facility] LABORATORYCLIA [id number] [address] Urobilinogen Ql (U) Negative Normal Negative [facility] Comment on above: Order Comment: Speci men Type: URINE SPECIMENOrdering Facility: [facility] Address: [address] [place] [address] Performed By: #### 2 4356-8, 630-4 ####[facility] LABORATORYCLIA [id number] [address] WBC LM.HPF (Urine sed) [#/Area] /[HPF] Abnormal 0-5 /HPF [facility] Comment on above: Order Comment: Speci men Type: URINE SPECIMENOrdering Facility: [facility] Address: [address] [place] [address] Performed By: #### 2 4356-8, 630-4 ####[facility] LABORATORYCLIA [id number] [address] aPTT PPPon 12-05-2024 aPTT Coag (PPP) [Time] 27.8 s Normal 23.0-32.4 [facility] Comment on above: Order Comment: Speci men Type: BLOOD SPECIMENOrdering Facility: [facility] Address: [address] [place] [address] Performed By: #### 3 4528-0, 32735-6 ####[facility] LABORATORYCLIA [id number] [address] ED Triage Noteon 12-04-2024 ED Triage Note Normal [facility] BRIEF OP NOTon 11-17-[address] [facility] IR EXCHANGE NEPH TUBE BILATo n 11-17-2024 IR EXCHANGE NEPH TUBE BILAT [facility] NURSING PROGon 11-17-[address] [facility] CNPNon 11-07-[address] [facility] Influenza virus A and B and SARS-CoV-2 (COVID-19) and Respiratory syncytial virus RNAOrdered By: Gerardo García on 11-03-2024 SARS-CoV-2 (COVID-19) RNA BOBBI+probe Ql (Unsp spec) [facility] [id number] DOrdered By: Zahra García on 10-27-2024 Vitamin D 25-Hydroxy 29.3 ng/mL [facility] Comment on above: Vitamin D 25(OH) Sta tus Range Deficiency <20 ng/mL (50nmol/L) Insufficiency 20 - 30 ng/mL (50 - 75 nmol/L) Sufficiency 30 - 100 ng/mL (75 - 250 nmol/L) Toxicity >100 ng/mL (>250 nmol/L) Absolute neutrophil countOrd ered By: Gerardo García on 10-27-2024 Neutrophils (Bld) [#/Vol] 5.5 10*3/uL 2.0-7.7 [facility] Albumin to globulin ratioOrd ered By: Gerardo García on 10-27-2024 Albumin/Globulin [Mass ratio] 0.5 {ratio} Low 0.9-2.4 [facility] Basophil percentageOrdered B y: Gerardo García on 10-27-2024 Basophils/100 WBC (Bld) 0.5 % 0-1 [facility] Bilirubin, totalOrdered By: [facility] on 10-27-2024 Bilirubin [Mass/Vol] 0.50 mg/dL 0.20-1.00 [facility] Comment on above: For patients on eltr ombopag therapy, use of Dimension Howard TBIL is not recommended. Blood urea nitrogen (BUN)/cr eatinine ratioOrdered By: Gerardo García on 10-27-2024 Urea nitrogen/Creatinine [Mass ratio] 10.0 mg/mg 10-20 [facility] Carbon dioxide measurementOr dered By: Gerardo García on 10-27-2024 CO2 [Moles/Vol] 22.0 mmol/L 21.0-32.0 [facility] Chloride measurementOrdered By: Gerardo García 10-27-2024 Chloride [Moles/Vol] 103 mmol/L 98-107 [facility] Eosinophil percentageOrdered By: Gerardo García 10-27-2024 Eosinophils/100 WBC (Bld) 0.9 % 0-5 [facility] Erythrocyte distribution wid th ratioOrdered By: Gerardo García on 10-27-2024 Erythrocyte distribution width (RBC) [Ratio] 14.6 % 11.6-14.6 [facility] Erythrocyte distribution wid th standard deviationOrdered By: Gerardo Ricky on 10-27-2024 Erythrocyte distribution width (RBC) [Entitic vol] 48.8 fL High 35.1-43.9 [facility] Estimated glomerular filtrat ion rate (GFR) AmericanOrdered By: Gerardo García 10-27-2024 Estimated GFR (MDRD) Amer 31 mL/min Low >60 [facility] Comment on above: GFR Calc Glomerular filtration rate ( GFR) estimationOrdered By: Gerardo García on 10-27-2024 Estimated GFR (MDRD) Non-Af Amer 26 mL/min Low >60 [facility] Comment on above: Non- GFR Calc Glucose measurementOrdered B y: Gerardo García on 10-27-2024 Glucose [Mass/Vol] 97 mg/dL 74-106 [facility] Hematocrit Auto (Bld) [Volum e fraction]Ordered By: Gerardo García on 10-27-2024 Hematocrit (Bld) [Volume fraction] 41.2 % 37-47 [facility] Hemoglobin measurementOrdere d By: Gerardo García on 10-27-2024 Hemoglobin (Bld) [Mass/Vol] 13.2 g/dL 12.0-15.0 [facility] High density lipoprotein (HD L) measurementOrdered By: Gerardo García 10-27-2024 Cholesterol in HDL [Mass/Vol] 47 mg/dL >40 [facility] Comment on above: The drugs N-Acetylcy steine and Metamizole may falsely depress this assay. Reference Range HDL <40 mg/dL Low HDL Cholesterol HDL >or= 60 mg/dL High HDL Cholesterol Immature granulocytes/100 WB C Auto (Bld)Ordered By: Gerardo García on 10-27-2024 Immature granulocytes/100 WBC (Bld) 0.500 % 0.0-0.9 [facility] Comment on above: IG% - Immature Granu locytes (promyelocytes, myelocytes and metamyelocytes) > 1% indicates that a LEFT SHIFT is Present. Influenza virus A and B and SARS-CoV-2 (COVID-19) and Respiratory syncytial virus RNAOrdered By: Gerardo García on 10-27-2024 SARS-CoV-2 (COVID-19) RNA BOBBI+probe Ql (Unsp spec) [facility] Laboratory - Chemistry and C hemistry - challengeOrdered By: Gerardo García on 10-27-2024 AST [Catalytic activity/Vol] 15 U/L 15-37 [facility] Low density lipoprotein (LDL ) cholesterol measurementOrdered By: Gerardo García 10-27-2024 Cholesterol in LDL [Mass/Vol] 119 mg/dL 0-130 [facility] Lymphocytes Auto (Unsp spec) [#/Vol]Ordered By: Gerardo García on 10-27-2024 Lymphocytes (Bld) [#/Vol] 3.96 10*3/uL 0.83-4.51 [facility] Lymphocytes/100 WBC Auto (Un sp spec)Ordered By: Gerardo García on 10-27-2024 Lymphocytes/100 WBC (Bld) 36.8 % 19-41 [facility] MCV (mean corpuscular volume ) determinationOrdered By: Gerardo García on 10-27-2024 MCV (RBC) [Entitic vol] 91.2 fL 81-99 [facility] Mean corpuscular hemoglobin (MCH) determinationOrdered By: Gerardo García on 10-27-2024 MCH (RBC) [Entitic mass] 29.2 pg 27.0-32.0 [facility] Mean corpuscular hemoglobin concentration (MCHC) determinationOrdered By: Gerardo García on 10-27-2024 MCHC (RBC) [Mass/Vol] 32.0 g/dL 32-36 [facility] Mean platelet volume determi nationOrdered By: Gerardo García on 10-27-2024 Platelet mean volume (Bld) [Entitic vol] 10.0 fL 6.2-12.0 [facility] Monocyte percentageOrdered B y: Gerardo García on 10-27-2024 Monocytes/100 WBC (Bld) 9.9 % 0-10 [facility] Neutrophil percentageOrdered By: Gerardo García on 10-27-2024 Neutrophils/100 WBC (Bld) 51.4 % 47-70 [facility] Nucleated red blood cell per centageOrdered By: Gerardo García on 10-27-2024 Nucleated RBC/100 WBC (Bld) [Ratio] 0 % 0-5 [facility] Platelet countOrdered By: Lenny García on 10-27-2024 Platelets (Bld) [#/Vol] 343 10*3/uL 150-450 [facility] Potassium measurementOrdered By: Gerardo García on 10-27-2024 Potassium [Moles/Vol] 4.2 mmol/L 3.5-5.1 [facility] RBC Auto (Bld) [#/Vol]Ordere d By: Gerardo García on 10-27-2024 RBC (Bld) [#/Vol] 4.52 10*6/uL 4.2-5.4 [facility] Serum anion gap measurementO rdered By: Gerardo García on 10-27-2024 Anion gap [Moles/Vol] 9 mmol/L 5-15 [facility] Serum globulin measurementOr dered By: Gerardo García on 10-27-2024 Globulin (S) [Mass/Vol] 5.8 g/dL High 2.2-4.2 [facility] Serum or plasma alanine masterson otransferase (ALT) measurementOrdered By: Gerardo García on 10-27-2024 ALT [Catalytic activity/Vol] 11 U/L Low 13-56 [facility] Serum or plasma albumin yunior urement (mass/volume)Ordered By: Gerardo García on 10-27-2024 Albumin [Mass/Vol] 2.8 g/dL Low 3.2-5.0 [facility] Serum or plasma alkaline terry sphatase measurementOrdered By: Gerardo García 10-27-2024 ALP [Catalytic activity/Vol] 130 U/L High 45-117 [facility] Serum or plasma calcium yunior urement (mass/volume)Ordered By: Gerardo García 10-27-2024 Calcium [Mass/Vol] 9.0 mg/dL 8.5-10.1 [facility] Serum or plasma cholesterol measurement (mass/volume)Ordered By: Gerardo García 10-27-2024 Cholesterol [Mass/Vol] 187 mg/dL <200 [facility] Comment on above: <200 mg/dL Desirable 200-240 mg/dL Borderline >240 mg/dL High Risk Serum or plasma creatinine m easurement (mass/volume)Ordered By: Gerardo García on 10-27-2024 Creatinine [Mass/Vol] 2.01 mg/dL High 0.55-1.02 [facility] Comment on above: The validity of the calculated GFR & GFRAA in patients over 70 years has not been determined. Clinical correlation is essential. Serum or plasma urea nitroge n measurement (mass/volume)Ordered By: Gerardo García on 10-27-2024 Urea nitrogen [Mass/Vol] 20 mg/dL High 7-18 [facility] Sodium levelOrdered By: Gerardo García 10-27-2024 Sodium [Moles/Vol] 134 mmol/L Low 136-145 [facility] TSH QnOrdered By: Gerardo García o n 10-27-2024 Thyroid Stimulating Hormone (TSH) 2.330 uIU/mL 0.358-3.74 0 [facility] Total proteinOrdered By: Gerardo García on 10-27-2024 Protein [Mass/Vol] 8.6 g/dL High 6.4-8.2 [facility] Triglycerides measurementOrd ered By: Gerardo García on 10-27-2024 Triglyceride [Mass/Vol] 103 mg/dL <199 [facility] Comment on above: The drugs N-Acetylcy steine and Metamizole may falsely depress this assay.Serum Triglycerides Reference Interval Normal <150 mg/dL Borderline high 150 - 199 mg/dL High 200 - 499 mg/dL Very High > or = 500 mg/dL Very low density lipoprotein (VLDL) cholesterol measurementOrdered By: Gerardo García on 10-27-2024 VLDL Cholesterol 21 mg/dL 5-40 [facility] White blood cell (WBC) count Ordered By: Gerardo García on 10-27-2024 WBC (Bld) [#/Vol] 10.8 10*3/uL 4.4-11.0 [facility] BRIEF OP NOTon 09-29-2024 BRIEF OP NOT Normal [facility] IR EXCHANGE NEPH TUBE BILATo n 09-29-2024 IR EXCHANGE NEPH TUBE BILAT Normal [facility] IR NEPHROSTOGRAM BILATon IR NEPHROSTOGRAM BILAT Normal [facility] NURSING PROGon 09-29-2024 NURSING PROG Normal [facility] No Panel Informationon 09-29 IMPRESSION: UNEVENTFUL [...] and agree with the report as written. [employer] Driver: LADARIUS Transcribe Date/Time: Sep 29 2024 3:16P Dictated by : GHULAM RIVERA DO This examination was interpreted and the report reviewed and electronically signed by: GHULAM RIVERA DO on Sep 29 2024 3:18PM [facility] No Panel InformationOrdered By: [facility] Provider on 09-29-2024 [facility] RF Guidance for exchange of nephrostomy tube [...] urology PROCEDURE SUMMARY - Target organ: Bilateral [place] kidneys - Antegrade nephrostogram(s) via the existing [...] performed by the: attending radiologist, without an senior office assistant. The attending radiologist performed t (more content not included)... [facility] Provider, Mayank Tourerob suero [place] - 09/29/2024 * * *Final Report* * [...] urology PROCEDURE SUMMARY - Target organ: Bilateral [place] kidneys - Antegrade nephrostogram(s) via the existing [...] attending radiologist, without (more content not included)... [facility] Radiology Study observation (narrative) [facility] RF Kidney - bilateral Views W [...] urology PROCEDURE SUMMARY - Target organ: Bilateral [place] kidneys - Antegrade nephrostogram(s) via the existing [...] performed by the: attending radiologist, without an senior office assistant. The attending radiologist performed the fo (more content not included)... [facility]24 * [...] urology PROCEDURE SUMMARY - Target organ: Bilateral [place] kidneys - Antegrade nephrostogram(s) via the existing [...] without an a (more content not included)... [facility] Radiology Study observation (narrative) [facility] Basic metabolic 2000 panelon 09-08-2024 Anion gap [Moles/Vol] 9 mmol/L Normal 5-16 [facility] Comment on above: Order Comment: Speci men Type: BLOOD SPECIMENOrdering Facility: [facility] Address: [address] [place] [address] Performed By: #### 2 4321-2 ####[facility] LABORATORYCLIA [id number] [place] [address] [place] Calcium [Mass/Vol] 8.9 mg/dL Normal 8.5-10.5 [facility] Comment on above: Order Comment: Speci men Type: BLOOD SPECIMENOrdering Facility: [facility] Address: [address] [place] [address] Performed By: #### 2 4321-2 ####[facility] LABORATORYCLIA [id number] [place] [address] [place] Chloride [Moles/Vol] 106 mmol/L Normal 98-107 [facility] Comment on above: Order Comment: Speci men Type: BLOOD SPECIMENOrdering Facility: [facility] Address: [address] [place] [address] Performed By: #### 2 4321-2 ####[facility] LABORATORYCLIA [id number] [place] [address] [place] CO2 [Moles/Vol] 22 mmol/L Normal 21-32 [facility] Comment on above: Order Comment: Speci men Type: BLOOD SPECIMENOrdering Facility: [facility] Address: [address] [place] [address] Performed By: #### 2 4321-2 ####[facility] LABORATORYCLIA [id number] [place] [address] [place] Creatinine [Mass/Vol] 1.99 mg/dL High 0.51-0.95 [facility] Comment on above: Order Comment: Speci men Type: BLOOD SPECIMENOrdering Facility: [facility] Address: [address] [place] [address] Result Comment: Mayda ents receiving either N-Acetylcysteine (NAC) or Metamizole prior to venipuncture, may have falsely depressed results. Performed By: #### 2 4321-2 ####[facility] LABORATORYCLIA [id number] [address] Creatinine and Glomerular filtration rate.predicted panel (S/P/Bld) 26 mL/min/1.73m??? Low >=60 [facility] Comment on above: Order Comment: Abdon lyles Type: BLOOD SPECIMENOrdering Facility: [facility] Address: [address] [place] [address] Result Comment: Judith mated Glomerular Filtration Rate [...] actual GFR. Performed By: #### 2 4321-2 ####[facility] LABORATORYCLIA [id number] [place] [address] [place] Glucose [Mass/Vol] 81 mg/dL Normal 70-100 [facility] Comment on above: Order Comment: Abdon lyles Type: BLOOD SPECIMENOrdering Facility: [facility] Address: [address] [place] [address] Result Comment: The [place] [employer] (ADA) provides guidance for cutoff [...] Standards of Medical Care in Diabetes 2016, [place] [employer]. Diabetes Care. 2016.39(Suppl 1).Results may be falsely elevated after the administration of Sulfapyridine.Results may be falsely depressed after the administration of Sulfasalazine. Performed By: #### 2 4321-2 ####[facility] LABORATORYCLIA [id number] [place] [address] [place] Potassium [Moles/Vol] 3.7 mmol/L Normal 3.5-5.1 [facility] Comment on above: Order Comment: Abdon lyles Type: BLOOD SPECIMENOrdering Facility: [facility] Address: [address] [place] [address] Performed By: #### 2 4321-2 ####[facility] LABORATORYCLIA [id number] [place] [address] [place] Sodium [Moles/Vol] 137 mmol/L Normal 136-145 [facility] Comment on above: Order Comment: Abdon lyles Type: BLOOD SPECIMENOrdering Facility: [facility] Address: [address] [place] [address] Performed By: #### 2 4321-2 ####[facility] LABORATORYCLIA [id number] [place] [address] [place] Urea nitrogen [Mass/Vol] 25 mg/dL Normal 7-26 [facility] Comment on above: Order Comment: Abdon lyles Type: BLOOD SPECIMENOrdering Facility: [facility] Address: [address] [place] [address] Performed By: #### 2 4321-2 ####[facility] LABORATORYCLIA [id number] [place] [address] [place] CBC W Auto Differential pane l (Bld)on 09-08-2024 Basophils (Bld) [#/Vol] 0.10 10*3/uL Normal <0.11 [facility] Comment on above: Order Comment: Speci men Type: BLOOD SPECIMENOrdering Facility: [facility] Address: [address] [place] [address] Performed By: #### 5 7021-8 ####[facility] LABORATORYCLIA [id number] [place] [id number] [place] Basophils/100 WBC (Bld) 1.0 % Normal [facility] Comment on above: Order Comment: Speci men Type: BLOOD SPECIMENOrdering Facility: [facility] Address: [address] [place] [address] Performed By: #### 5 7021-8 ####[facility] LABORATORYCLIA [id number] [place] [address] [place] Differential cell count method Nom (Bld) Manual Normal [facility] Comment on above: Order Comment: Speci men Type: BLOOD SPECIMENOrdering Facility: [facility] Address: [address] [place] [address] Performed By: #### 5 7021-8 ####[facility] LABORATORYCLIA [id number] [place] [address] [place] Eosinophils (Bld) [#/Vol] 0.20 10*3/uL Normal <0.46 [facility] Comment on above: Order Comment: Speci men Type: BLOOD SPECIMENOrdering Facility: [facility] Address: [address] [place] [address] Performed By: #### 5 7021-8 ####[facility] LABORATORYCLIA [id number] [place] [address] [place] Eosinophils/100 WBC (Bld) 2.0 % Normal [facility] Comment on above: Order Comment: Speci men Type: BLOOD SPECIMENOrdering Facility: [facility] Address: [address] [place] [address] Performed By: #### 5 7021-8 ####[facility] LABORATORYCLIA [id number] [place] [address] [place] Erythrocyte distribution width (RBC) [Ratio] 13.9 % Normal 11.5-15.0 [facility] Comment on above: Order Comment: Speci men Type: BLOOD SPECIMENOrdering Facility: [facility] Address: [address] [place] [address] Performed By: #### 5 7021-8 ####[facility] LABORATORYCLIA [id number] [place] [id number] [place] Hematocrit (Bld) [Volume fraction] 36.7 % Normal 36.0-46.0 [facility] Comment on above: Order Comment: Speci men Type: BLOOD SPECIMENOrdering Facility: [facility] Address: [address] [place] [address] Performed By: #### 5 7021-8 ####[facility] LABORATORYCLIA [id number] [place] [address] [place] Hemoglobin (Bld) [Mass/Vol] 11.8 g/dL Normal 11.5-15.5 [facility] Comment on above: Order Comment: Speci men Type: BLOOD SPECIMENOrdering Facility: [facility] Address: [address] [place] [address] Performed By: #### 5 7021-8 ####[facility] LABORATORYCLIA [id number] [place] [address] [place] Lymphocytes (Bld) [#/Vol] 4.18 10*3/uL High 1.00-4.00 [facility] Comment on above: Order Comment: Speci men Type: BLOOD SPECIMENOrdering Facility: [facility] Address: [address] [place] [address] Performed By: #### 5 7021-8 ####[facility] LABORATORYCLIA [id number] [place] [id number] [place] Lymphocytes/100 WBC (Bld) 42.0 % Normal [facility] Comment on above: Order Comment: Speci men Type: BLOOD SPECIMENOrdering Facility: [facility] Address: [address] [place] [address] Performed By: #### 5 7021-8 ####[facility] LABORATORYCLIA [id number] [address] [place] [facility] MCH (RBC) [Entitic mass] 29.4 pg Normal 26.0-34.0 [facility] Comment on above: Order Comment: Speci men Type: BLOOD SPECIMENOrdering Facility: [facility] Address: [address] [place] [address] Performed By: #### 5 7021-8 ####[facility] LABORATORYCLIA [id number] [address] [place] MCHC (RBC) [Mass/Vol] 32.2 g/dL Normal 30.5-36.0 [facility] Comment on above: Order Comment: Speci men Type: BLOOD SPECIMENOrdering Facility: [facility] Address: [address] [place] [address] Performed By: #### 5 7021-8 ####[facility] LABORATORYCLIA [id number] [address] [facility] MCV (RBC) [Entitic vol] 91.3 fL Normal 80.0-100.0 [facility] Comment on above: Order Comment: Speci men Type: BLOOD SPECIMENOrdering Facility: [facility] Address: [address] [place] [address] Performed By: #### 5 7021-8 ####[facility] LABORATORYCLIA [id number] [address] Monocytes (Bld) [#/Vol] 0.50 10*3/uL Normal <0.87 [facility] Comment on above: Order Comment: Speci men Type: BLOOD SPECIMENOrdering Facility: [facility] Address: [address] [place] [address] Performed By: #### 5 7021-8 ####[facility] LABORATORYCLIA [id number] [address] [place] Monocytes/100 WBC (Bld) 5.0 % Normal [facility] Comment on above: Order Comment: Speci men Type: BLOOD SPECIMENOrdering Facility: [facility] Address: [address] [place] [address] Performed By: #### 5 7021-8 ####[facility] LABORATORYCLIA [id number] [place] [address] [place] Neutrophils (Bld) [#/Vol] 4.98 10*3/uL Normal 1.45-7.50 [facility] Comment on above: Order Comment: Speci men Type: BLOOD SPECIMENOrdering Facility: [facility] Address: [address] [place] [address] Performed By: #### 5 7021-8 ####[facility] LABORATORYCLIA [id number] [place] [address] [place] Neutrophils/100 WBC (Bld) 50.0 % Normal [facility] Comment on above: Order Comment: Speci men Type: BLOOD SPECIMENOrdering Facility: [facility] Address: [address] [place] [address] Performed By: #### 5 7021-8 ####[facility] LABORATORYCLIA [id number] [place] [address] [place] Nucleated RBC (Bld) [#/Vol] 10*3/uL Normal <0.01 [facility] Comment on above: Order Comment: Speci men Type: BLOOD SPECIMENOrdering Facility: [facility] Address: [address] [place] [address] Performed By: #### 5 7021-8 ####[facility] LABORATORYCLIA [id number] [place] [address] [place] Nucleated RBC/100 WBC (Bld) [Ratio] 0.0 /100 WBC Normal [facility] Comment on above: Order Comment: Speci men Type: BLOOD SPECIMENOrdering Facility: [facility] Address: [address] [place] [address] Performed By: #### 5 7021-8 ####[facility] LABORATORYCLIA [id number] [place] [address] [place] Ovalocytes LM Ql (Bld) Few Normal [facility] Comment on above: Order Comment: Speci men Type: BLOOD SPECIMENOrdering Facility: [facility] Address: [address] [place] [address] Performed By: #### 5 7021-8 ####[facility] LABORATORYCLIA [id number] [place] [address] [place] Platelet mean volume (Bld) [Entitic vol] 9.8 fL Normal 9.0-12.7 [facility] Comment on above: Order Comment: Speci men Type: BLOOD SPECIMENOrdering Facility: [facility] Address: [address] [place] [address] Performed By: #### 5 7021-8 ####[facility] LABORATORYCLIA [id number] [place] [address] [place] Platelets (Bld) [#/Vol] 314 10*3/uL Normal 150-400 [facility] Comment on above: Order Comment: Speci men Type: BLOOD SPECIMENOrdering Facility: [facility] Address: [address] [place] [address] Performed By: #### 5 7021-8 ####[facility] LABORATORYCLIA [id number] [place] [address] [place] Platelets Estimate (Bld) [#/Vol] Adequate Normal [facility] [facility] Comment on above: Order Comment: Speci men Type: BLOOD SPECIMENOrdering Facility: [facility] Address: [address] [place] [address] Performed By: #### 5 7021-8 ####[facility] LABORATORYCLIA [id number] [place] [address] [place] Polychromasia LM Ql (Bld) Slight Normal [facility] Comment on above: Order Comment: Speci men Type: BLOOD SPECIMENOrdering Facility: [facility] Address: [address] [place] [address] Performed By: #### 5 7021-8 ####[facility] LABORATORYCLIA [id number] [address] [place] RBC (Bld) [#/Vol] 4.02 10*6/uL Normal 3.90-5.20 [facility] Comment on above: Order Comment: Speci men Type: BLOOD SPECIMENOrdering Facility: [facility] Address: [address] [place] [address] Performed By: #### 5 7021-8 ####[facility] LABORATORYCLIA [id number] [place] [address] [place] RED CELL MORPH Reviewed: see result s of individual morphologies Normal [facility] Comment on above: Order Comment: Speci men Type: BLOOD SPECIMENOrdering Facility: [facility] Address: [address] [place] [address] Performed By: #### 5 7021-8 ####[facility] LABORATORYCLIA [id number] [place] [address] [place] WBC (Bld) [#/Vol] 9.96 10*3/uL Normal 3.70-11.00 [facility] Comment on above: Order Comment: Speci men Type: BLOOD SPECIMENOrdering Facility: [facility] Address: [address] [place] [address] Performed By: #### 5 7021-8 ####[facility] LABORATORYCLIA [id number] [place] [address] [place] CNDSon 09-08-2024 CNDS Normal [facility] THERAPY NTon 09-08-[address] [facility] [address]APY NT [facility] Bacteria Ur Culton 4 Bacteria identified Cx Nom (U) Normal [facility] Comment on above: Performed By: #### 6 30-4 ####[facility] LABORATORYCLIA [id number] [place] [address] [place] Basic metabolic 2000 panelon 09-07-2024 Anion gap [Moles/Vol] 11 mmol/L Normal 5-16 [facility] Comment on above: Order Comment: Speci men Type: BLOOD SPECIMENOrdering Facility: [facility] Address: [address] [place] [address] Performed By: #### 2 4321-2 ####[facility] LABORATORYCLIA [id number] [place] [address] [place] Calcium [Mass/Vol] 9.3 mg/dL Normal 8.5-10.5 [facility] Comment on above: Order Comment: Speci men Type: BLOOD SPECIMENOrdering Facility: [facility] Address: [address] [place] [address] Performed By: #### 2 4321-2 ####[facility] LABORATORYCLIA [id number] [place] [address] [place] Chloride [Moles/Vol] 106 mmol/L Normal 98-107 [facility] Comment on above: Order Comment: Speci men Type: BLOOD SPECIMENOrdering Facility: [facility] Address: [address] [place] [address] Performed By: #### 2 4321-2 ####[facility] LABORATORYCLIA [id number] [place] [address] [place] CO2 [Moles/Vol] 22 mmol/L Normal 21-32 [facility] Comment on above: Order Comment: Speci men Type: BLOOD SPECIMENOrdering Facility: [facility] Address: [address] [place] [address] Performed By: #### 2 4321-2 ####[facility] LABORATORYCLIA [id number] [place] [address] [place] Creatinine [Mass/Vol] 1.87 mg/dL High 0.51-0.95 [facility] Comment on above: Order Comment: Speci men Type: BLOOD SPECIMENOrdering Facility: [facility] Address: [address] [place] [address] Result Comment: Mayda ents receiving either N-Acetylcysteine (NAC) or Metamizole prior to venipuncture, may have falsely depressed results. Performed By: #### 2 4321-2 ####[facility] LABORATORYCLIA [id number] [place] [address] [place] Creatinine and Glomerular filtration rate.predicted panel (S/P/Bld) 28 mL/min/1.73m??? Low >=60 [facility] Comment on above: Order Comment: Abdon lyles Type: BLOOD SPECIMENOrdering Facility: [facility] Address: [address] [place] [address] Result Comment: Judith mated Glomerular Filtration Rate [...] actual GFR. Performed By: #### 2 4321-2 ####[facility] LABORATORYCLIA [id number] [place] [address] [place] Glucose [Mass/Vol] 63 mg/dL Low 70-100 [facility] Comment on above: Order Comment: Abdon lyles Type: BLOOD SPECIMENOrdering Facility: [facility] Address: [address] [place] [address] Result Comment: The [place] [employer] (ADA) provides guidance for cutoff [...] Standards of Medical Care in Diabetes 2016, [place] [employer]. Diabetes Care. 2016.39(Suppl 1).Results may be falsely elevated after the administration of Sulfapyridine.Results may be falsely depressed after the administration of Sulfasalazine. Performed By: #### 2 4321-2 ####[facility] LABORATORYCLIA [id number] [place] [id number] [place] Potassium [Moles/Vol] 4.4 mmol/L Normal 3.5-5.1 [facility] Comment on above: Order Comment: Speci men Type: BLOOD SPECIMENOrdering Facility: [facility] Address: [address] [place] [address] Performed By: #### 2 4321-2 ####[facility] LABORATORYCLIA [id number] [place] [id number] [place] Sodium [Moles/Vol] 139 mmol/L Normal 136-145 [facility] Comment on above: Order Comment: Speci men Type: BLOOD SPECIMENOrdering Facility: [facility] Address: [address] [place] [address] Performed By: #### 2 4321-2 ####[facility] LABORATORYCLIA [id number] [place] [address] [place] Urea nitrogen [Mass/Vol] 23 mg/dL Normal 7-26 [facility] Comment on above: Order Comment: Speci men Type: BLOOD SPECIMENOrdering Facility: [facility] Address: [address] [place] [address] Performed By: #### 2 4321-2 ####[facility] LABORATORYCLIA [id number] [place] [address] [place] CBC W Auto Differential pane l (Bld)on 09-07-2024 Basophils (Bld) [#/Vol] 0.07 10*3/uL Normal <0.11 [facility] Comment on above: Order Comment: Speci men Type: BLOOD SPECIMENOrdering Facility: [facility] Address: [address] [place] [address] Performed By: #### 5 7021-8 ####[facility] LABORATORYCLIA [id number] [place] [address] [place] Basophils/100 WBC (Bld) 0.6 % Normal [facility] Comment on above: Order Comment: Speci men Type: BLOOD SPECIMENOrdering Facility: [facility] Address: [address] [place] [address] Performed By: #### 5 7021-8 ####[facility] LABORATORYCLIA [id number] [address] [place] Differential cell count method Nom (Bld) Auto Normal [facility] Comment on above: Order Comment: Speci men Type: BLOOD SPECIMENOrdering Facility: [facility] Address: [address] [place] [address] Performed By: #### 5 7021-8 ####[facility] LABORATORYCLIA [id number] [place] [address] [place] Eosinophils (Bld) [#/Vol] 0.13 10*3/uL Normal <0.46 [facility] Comment on above: Order Comment: Speci men Type: BLOOD SPECIMENOrdering Facility: [facility] Address: [address] [place] [address] Performed By: #### 5 7021-8 ####[facility] LABORATORYCLIA [id number] [address] [place] Eosinophils/100 WBC (Bld) 1.1 % Normal [facility] Comment on above: Order Comment: Speci men Type: BLOOD SPECIMENOrdering Facility: [facility] Address: [address] [place] [address] Performed By: #### 5 7021-8 ####[facility] LABORATORYCLIA [id number] [address] [place] Erythrocyte distribution width (RBC) [Ratio] 14.1 % Normal 11.5-15.0 [facility] Comment on above: Order Comment: Speci men Type: BLOOD SPECIMENOrdering Facility: [facility] Address: [address] [place] [address] Performed By: #### 5 7021-8 ####[facility] LABORATORYCLIA [id number] [address] [place] Hematocrit (Bld) [Volume fraction] 39.3 % Normal 36.0-46.0 [facility] Comment on above: Order Comment: Speci men Type: BLOOD SPECIMENOrdering Facility: [facility] Address: [address] [place] [address] Performed By: #### 5 7021-8 ####[facility] LABORATORYCLIA [id number] [place] [id number] [place] Hemoglobin (Bld) [Mass/Vol] 12.4 g/dL Normal 11.5-15.5 [facility] Comment on above: Order Comment: Speci men Type: BLOOD SPECIMENOrdering Facility: [facility] Address: [address] [place] [address] Performed By: #### 5 7021-8 ####[facility] LABORATORYCLIA [id number] [place] [id number] [place] Immature granulocytes (Bld) [#/Vol] 0.07 10*3/uL Normal <0.10 [facility] Comment on above: Order Comment: Speci men Type: BLOOD SPECIMENOrdering Facility: [facility] Address: [address] [place] [address] Performed By: #### 5 7021-8 ####[facility] LABORATORYCLIA [id number] [place] [address] [place] Immature granulocytes/100 WBC (Bld) 0.6 % Normal [facility] Comment on above: Order Comment: Speci men Type: BLOOD SPECIMENOrdering Facility: [facility] Address: [address] [place] [place] [address] Performed By: #### 5 7021-8 ####[facility] LABORATORYCLIA [id number] [place] [id number] [place] Lymphocytes (Bld) [#/Vol] 4.67 10*3/uL High 1.00-4.00 [facility] Comment on above: Order Comment: Speci men Type: BLOOD SPECIMENOrdering Facility: [facility] Address: [address] [place] [address] Performed By: #### 5 7021-8 ####[facility] LABORATORYCLIA [id number] [place] [id number] [place] Lymphocytes/100 WBC (Bld) 38.3 % Normal [facility] Comment on above: Order Comment: Speci men Type: BLOOD SPECIMENOrdering Facility: [facility] Address: [address] [place] [address] Performed By: #### 5 7021-8 ####[facility] LABORATORYCLIA [id number] [place] [id number] [place] MCH (RBC) [Entitic mass] 28.8 pg Normal 26.0-34.0 [facility] Comment on above: Order Comment: Speci men Type: BLOOD SPECIMENOrdering Facility: [facility] Address: [address] [place] [address] Performed By: #### 5 7021-8 ####[facility] LABORATORYCLIA [id number] [address] [place] MCHC (RBC) [Mass/Vol] 31.6 g/dL Normal 30.5-36.0 [facility] Comment on above: Order Comment: Speci men Type: BLOOD SPECIMENOrdering Facility: [facility] Address: [address] [place] [address] Performed By: #### 5 7021-8 ####[facility] LABORATORYCLIA [id number] [place] [address] [place] MCV (RBC) [Entitic vol] 91.4 fL Normal 80.0-100.0 [facility] Comment on above: Order Comment: Speci men Type: BLOOD SPECIMENOrdering Facility: [facility] Address: [address] [place] [address] Performed By: #### 5 7021-8 ####[facility] LABORATORYCLIA [id number] [place] [address] [place] Monocytes (Bld) [#/Vol] 0.93 10*3/uL High <0.87 [facility] Comment on above: Order Comment: Speci men Type: BLOOD SPECIMENOrdering Facility: [facility] Address: [address] [place] [address] Performed By: #### 5 7021-8 ####[facility] LABORATORYCLIA [id number] [place] [address] [place] Monocytes/100 WBC (Bld) 7.6 % Normal [facility] Comment on above: Order Comment: Speci men Type: BLOOD SPECIMENOrdering Facility: [facility] Address: [address] [place] [address] Performed By: #### 5 7021-8 ####[facility] LABORATORYCLIA [id number] [place] [address] [place] Neutrophils (Bld) [#/Vol] 6.32 10*3/uL Normal 1.45-7.50 [facility] Comment on above: Order Comment: Speci men Type: BLOOD SPECIMENOrdering Facility: [facility] Address: [address] [place] [address] Performed By: #### 5 7021-8 ####[facility] LABORATORYCLIA [id number] [place] [address] [place] Neutrophils/100 WBC (Bld) 51.8 % Normal [facility] Comment on above: Order Comment: Speci men Type: BLOOD SPECIMENOrdering Facility: [facility] Address: [address] [place] [address] Performed By: #### 5 7021-8 ####[facility] LABORATORYCLIA [id number] [place] [address] [place] Nucleated RBC (Bld) [#/Vol] 10*3/uL Normal <0.01 [facility] Comment on above: Order Comment: Speci men Type: BLOOD SPECIMENOrdering Facility: [facility] Address: [address] [place] [address] Performed By: #### 5 7021-8 ####[facility] LABORATORYCLIA [id number] [place] [address] [place] Nucleated RBC/100 WBC (Bld) [Ratio] 0.0 /100 WBC Normal [facility] Comment on above: Order Comment: Speci men Type: BLOOD SPECIMENOrdering Facility: [facility] Address: [address] [place] [address] Performed By: #### 5 7021-8 ####[facility] LABORATORYCLIA [id number] [place] [id number] [place] Platelet mean volume (Bld) [Entitic vol] 9.8 fL Normal 9.0-12.7 [facility] Comment on above: Order Comment: Speci men Type: BLOOD SPECIMENOrdering Facility: [facility] Address: [address] [place] [address] Performed By: #### 5 7021-8 ####[facility] LABORATORYCLIA [id number] [place] [address] [place] Platelets (Bld) [#/Vol] 325 10*3/uL Normal 150-400 [facility] Comment on above: Order Comment: Speci men Type: BLOOD SPECIMENOrdering Facility: [facility] Address: [address] [place] [address] Performed By: #### 5 7021-8 ####[facility] LABORATORYCLIA [id number] [address] [place] RBC (Bld) [#/Vol] 4.30 10*6/uL Normal 3.90-5.20 [facility] Comment on above: Order Comment: Speci men Type: BLOOD SPECIMENOrdering Facility: [facility] Address: [address] [place] [address] Performed By: #### 5 7021-8 ####[facility] LABORATORYCLIA [id number] [place] [address] [place] WBC (Bld) [#/Vol] 12.19 10*3/uL High 3.70-11.00 [facility] Comment on above: Order Comment: Speci men Type: BLOOD SPECIMENOrdering Facility: [facility] Address: [address] [place] [address] Performed By: #### 5 7021-8 ####[facility] LABORATORYCLIA [id number] [place] [id number] [facility] [place] URINALYSIS, REFLEX MICROSCOP ICon 09-07-2024 Bacteria LM.HPF (Urine sed) [#/Area] Few Abnormal None Seen [facility] Comment on above: Order Comment: Speci men Type: URINE SPECIMENOrdering Facility: [facility] Address: [address] [place] [address] Performed By: #### L [id number] ####[facility] LABORATORYCLIA [id number] [place] [address] [place] Bilirubin Ql (U) Negative Normal Negative [facility] Comment on above: Order Comment: Speci men Type: URINE SPECIMENOrdering Facility: [facility] Address: [address] [place] [address] Performed By: #### L [id number] ####[facility] LABORATORYCLIA [id number] [address] [place] Clarity (Unsp spec) Hazy Abnormal Clear [facility] Comment on above: Order Comment: Speci men Type: URINE SPECIMENOrdering Facility: [facility] Address: [address] [place] [address] Performed By: #### L [id number] ####[facility] LABORATORYCLIA [id number] [address] [place] Color (U) Yellow Normal Yellow [facility] Comment on above: Order Comment: Speci men Type: URINE SPECIMENOrdering Facility: [facility] Address: [address] [place] [address] Performed By: #### L [id number] ####[facility] LABORATORYCLIA [id number] [address] [place] Epithelial cells LM.HPF (Urine sed) [#/Area] None Seen Normal [facility] Comment on above: Order Comment: Speci men Type: URINE SPECIMENOrdering Facility: [facility] Address: [address] [place] [address] Performed By: #### L [id number] ####[facility] LABORATORYCLIA [id number] [place] [address] [place] Glucose Test strip (U) [Mass/Vol] Negative Normal Negative [facility] Comment on above: Order Comment: Speci men Type: URINE SPECIMENOrdering Facility: [facility] Address: [address] [place] [address] Performed By: #### L [id number] ####[facility] LABORATORYCLIA [id number] [address] [place] Hemoglobin Ql (U) 1+ Abnormal Negative [facility] Comment on above: Order Comment: Speci men Type: URINE SPECIMENOrdering Facility: [facility] Address: [address] [place] [address] Performed By: #### L [id number] ####[facility] LABORATORYCLIA [id number] [address] [place] Ketones Ql (U) 1+ Abnormal Negative [facility] Comment on above: Order Comment: Speci men Type: URINE SPECIMENOrdering Facility: [facility] Address: [address] [place] [address] Performed By: #### L [id number] ####[facility] LABORATORYCLIA [id number] [address] [place] Leukocyte esterase Test strip Ql (U) 3+ Abnormal Negative [facility] Comment on above: Order Comment: Speci men Type: URINE SPECIMENOrdering Facility: [facility] Address: [address] [place] [address] Performed By: #### L [id number] ####[facility] LABORATORYCLIA [id number] [place] [address] [place] Nitrite Ql (U) Negative Normal Negative [facility] Comment on above: Order Comment: Speci men Type: URINE SPECIMENOrdering Facility: [facility] Address: [address] [place] [address] Performed By: #### L [id number] ####[facility] LABORATORYCLIA [id number] [address] [place] pH (U) 6.0 [pH] Normal 5.0-8.0 [facility] Comment on above: Order Comment: Speci men Type: URINE SPECIMENOrdering Facility: [facility] Address: [address] [place] [address] Performed By: #### L [id number] ####[facility] LABORATORYCLIA [id number] [place] [address] [place] Protein (U) [Mass/Vol] 1+ Abnormal Negative [facility] Comment on above: Order Comment: Speci men Type: URINE SPECIMENOrdering Facility: [facility] Address: [address] [place] [address] Performed By: #### L [id number] ####[facility] LABORATORYCLIA [id number] [address] [place] RBC LM.HPF (Urine sed) [#/Area] 6-10 /HPF Abnormal 0-3 /HPF [facility] Comment on above: Order Comment: Speci men Type: URINE SPECIMENOrdering Facility: [facility] Address: [address] [place] [address] Performed By: #### L [id number] ####[facility] LABORATORYCLIA [id number] [address] Specific gravity (U) [Rel density] 1.012 Normal 1.005-1.03 0 [facility] Comment on above: Order Comment: Speci men Type: URINE SPECIMENOrdering Facility: [facility] Address: [address] [place] [address] Performed By: #### L [id number] ####[facility] LABORATORYCLIA [id number] [address] [place] Urobilinogen Ql (U) Negative Normal Negative [facility] Comment on above: Order Comment: Speci men Type: URINE SPECIMENOrdering Facility: [facility] Address: [address] [place] [address] Performed By: #### L [id number] ####[facility] LABORATORYCLIA [id number] [place] [address] [place] WBC LM.HPF (Urine sed) [#/Area] /[HPF] Abnormal 0-5 /HPF [facility] Comment on above: Order Comment: Speci men Type: URINE SPECIMENOrdering Facility: [facility] Address: [address] [place] [address] Performed By: #### L [id number] ####[facility] LABORATORYCLIA [id number] [place] [address] [place] CONSULTon 09-06-2024 CONSULT Normal [facility] HISTORY PHYSICALon HISTORY PHYSICAL Normal [facility] Guidance for exchange of nep hrostomy [...] cc. Contrast: 15 mL of Visipaque 270. [facility] Provider, [facility] - 06/16/2024 * * *Final Report* [...] in 8 to 10 weeks is recommended. [employer] Truck Driver: LADARIUS Transcribe Date/Time: Jun 16 2024 8:45P Dictated by : GERALDO CAMPBELL MD This examination was interpreted and the report reviewed and electronically signed by: GERALDO CAMPBELL MD on Jun 16 2024 10:30PM [facility] No Panel Informationon 06-16 IMPRESSION: 1. Successful recanalization of the partially removed left nephrostomy tube as described above. The new tube has adequate position and function. 2. No immediate complications. 3. Nephrostomy tube exchange in 8 to 10 weeks is recommended. [employer]: LADARIUS Transcribe Date/Time: Jun 16 2024 8:45P Dictated by : GERALDO CAMPBELL MD This examination was interpreted and the report reviewed and electronically signed by: GERALDO CAMPBELL MD on Jun 16 2024 10:30PM [facility] Radiology Study observation (narrative) Jordan Barbosa No Panel InformationOrdered By: Ccf Provider on 06-16-2024 [facility] RF Kidney and Ureter and Uri nary [...] cc. Contrast: 15 mL of Visipaque 270. [facility] Provider, [facility] - 06/16/2024 * * *Final Report* * * DATE OF EXAM: Jun 16 2024 11:18AM [facility] - NEPHROSTOGRAM / PROCEDURE REASON: Hydronephrosis [...] in 8 to 10 weeks is recommended. [employer] [facility] Transcribe Date/Time: Jun 16 2024 8:45P Dictated by : GERALDO CAMPBELL MD This examination was interpreted and the report reviewed and electronically signed by: GERALDO CAMPBELL MD on Jun 16 2024 10:30PM [facility] No Panel Informationon 05-13 IMPRESSION: UNEVENTFUL EXCHANGE OF GENITOURINARY CATHETER(S) PLAN: Catheter may be allowed to drain passively into bag until next catheter exchange. Patient may return in approximately 8 weeks for routine exchange. Attestation Signer name: Jona Clark MD I attest that I was present for the entire procedure. I reviewed the stored images and agree with the report as written. [employer] Driver: LADARIUS Transcribe Date/Time: May 13 2024 12:19P Dictated by : JONA CLARK MD This examination was interpreted and the report reviewed and electronically signed by: JONA CLARK MD on May 13 2024 12:24PM [facility] Radiology Study observation (narrative) [facility] Panel InformationOrdered By: Ccf Provider on 05-13-2024 [facility] RF Guidance for exchange of nephrostomy tube [...] None PROCEDURE SUMMARY - Target organ: Bilateral [place] kidneys - Antegrade nephrostogram(s) via the existing [...] contrast injection. Pre-existing genitourinary catheter: 8 F [employer] nephrostomy Genitourinary catheter(s) placed: 8 F [employer] nephrostomy Findings: Well-positioned existing nephrostomy tube. No filling defects. No hydronephrosis. External catheter securement: Non-absorbable suture Left genitourinary catheter exchange Local anesthesia was administered. Initial nephrostogram was performed. A wire was placed through the existing tube and it was removed. The new tube was advanced over the wire and position was confirmed with contrast injection. Pre-existing genitourinary catheter: 8 F [employer] nephrostomy Genitourinary catheter(s) placed: 8 F [employer] nephrostomy Findings: Well-positioned existing nephrostomy tube. [...] procedure was performe (more content not included)... [facility] RAD[facility] Provider, [facility] - 05/13/2024 * * *Final Report* [...] None PROCEDURE SUMMARY - Target organ: Bilateral [place] kidneys - Antegrade nephrostogram(s) via the existing [...] contrast injection. Pre-existing genitourinary catheter: 8 F [employer] nephrostomy Genitourinary catheter(s) placed: 8 F [employer] nephrostomy Findings: Well-positioned existing nephrostomy tube. No filling defects. No hydronephrosis. External catheter securement: Non-absorbable suture Left genitourinary catheter exchange Local anesthesia was administered. Initial nephrostogram was performed. A wire was placed through the existing tube and it was removed. The new tube was advanced over the wire and position was confirmed with contrast injection. Pre-existing genitourinary catheter: 8 F [employer] nephrostomy Genitourinary catheter(s) placed: 8 F [employer] nephrostomy Findings: Well-positioned existing nephrostomy tube. [...] recovery room in (more content not included)... [facility] RF Kidney - bilateral Views W [...] None PROCEDURE SUMMARY - Target organ: Bilateral [place] kidneys - Antegrade nephrostogram(s) via the existing [...] contrast injection. Pre-existing genitourinary catheter: 8 F [employer] nephrostomy Genitourinary catheter(s) placed: 8 F [employer] nephrostomy Findings: Well-positioned existing nephrostomy tube. No filling defects. No hydronephrosis. External catheter securement: Non-absorbable suture Left genitourinary catheter exchange Local anesthesia was administered. Initial nephrostogram was performed. A wire was placed through the existing tube and it was removed. The new tube was advanced over the wire and position was confirmed with contrast injection. Pre-existing genitourinary catheter: 8 F [employer] nephrostomy Genitourinary catheter(s) placed: 8 F [employer] nephrostomy Findings: Well-positioned existing nephrostomy tube. [...] was performed by (more content not included)... [facility] RAD[facility] Provider, Mayank Briggs - 05/13/2024 [...] None PROCEDURE SUMMARY - Target organ: Bilateral [place] kidneys - Antegrade nephrostogram(s) via the existing [...] contrast injection. Pre-existing genitourinary catheter: 8 F [employer] nephrostomy Genitourinary catheter(s) placed: 8 F [employer] nephrostomy Findings: Well-positioned existing nephrostomy tube. No filling defects. No hydronephrosis. External catheter securement: Non-absorbable suture Left genitourinary catheter exchange Local anesthesia was administered. Initial nephrostogram was performed. A wire was placed through the existing tube and it was removed. The new tube was advanced over the wire and position was confirmed with contrast injection. Pre-existing genitourinary catheter: 8 F [employer] nephrostomy Genitourinary catheter(s) placed: 8 F [employer] nephrostomy Findings: Well-positioned existing nephrostomy tube. No [...] recovery room in (more content not included)... [facility] Serum or plasma thyroid stim ulating hormone (TSH) measurement (units/volume)Ordered By: Gerardo García on 03-17-2024 TSH Qn 2.11 uIU/mL 0.358-3.74 [facility] Absolute lymphocyte countOrd ered By: Julianna Matthews on 02-17-2024 Lymphocytes Auto (Unsp spec) [#/Vol] 4.47 10*3/uL 0.83-4.51 [facility] Automated lymphocyte count a s percentage of total leukocytesOrdered By: Julianna Matthews on 02-17-2024 Lymphocytes/100 WBC Auto (Unsp spec) 41.4 % 19-41 [facility] Basophil percentageOrdered B y: Julianna Matthews on 02-17-2024 Basophils/100 WBC (Bld) 0.5 % 0-1 [facility] Chloride [Moles/Vol] 115 mmol/L 98-107 [facility] Eosinophils/100 WBC (Bld) 4.2 % 0-5 [facility] Glucose [Mass/Vol] 90 mg/dL 74-106 [facility] Hemoglobin (Bld) [Mass/Vol] 12.4 g/dL 12.0-15.0 [facility] Monocytes/100 WBC (Bld) 6.8 % 0-10 [facility] Neutrophils (Bld) [#/Vol] 5.1 10*3/uL 2.0-7.7 [facility] Neutrophils/100 WBC (Bld) 46.8 % 47-70 [facility] Potassium [Moles/Vol] 3.7 mmol/L 3.5-5.1 [facility] Sodium [Moles/Vol] 142 mmol/L 136-145 [facility] WBC (Bld) [#/Vol] 10.8 10*3/uL 4.4-11.0 [facility] Determination of erythrocyte mean corpuscular volume (MCV)Ordered By: Julianna Matthews on 02-17-2024 MCV (RBC) [Entitic vol] 99.2 fL 81-99 [facility] Erythrocyte distribution wid th ratioOrdered By: Julianna Matthews on 02-17-2024 Erythrocyte distribution width (RBC) [Ratio] 13.2 % 11.6-14.6 [facility] Erythrocyte distribution wid th standard deviationOrdered By: Julianna Matthews on 02-17-2024 Erythrocyte distribution width (RBC) [Entitic vol] 47.9 fL 35.1-43.9 [facility] Hematocrit Auto (Bld) [Volum e fraction]Ordered By: Julianna Matthews on 02-17-2024 Hematocrit (Bld) [Volume fraction] 38.0 % 37-47 [facility] Immature granulocytes/100 WB C Auto (Bld)Ordered By: Julianna Matthews on 02-17-2024 Immature granulocytes/100 WBC (Bld) 0.300 % 0.0-0.9 [facility] Comment on above: IG% - Immature Granu locytes (promyelocytes, myelocytes and metamyelocytes) > 1% indicates that a LEFT SHIFT is Present. Laboratory - Chemistry and C hemistry - challengeOrdered By: Julianna Matthews on 02-17-2024 CO2 [Moles/Vol] 22.0 mmol/L 21.0-32.0 [facility] Urea nitrogen/Creatinine [Mass ratio] 9.3 mg/mg 10-20 [facility] Laboratory - Hematology and Cell countsOrdered By: Julianna Matthews on 02-17-2024 MCH (RBC) [Entitic mass] 32.4 pg 27.0-32.0 [facility] MCHC (RBC) [Mass/Vol] 32.6 g/dL 32-36 [facility] Nucleated RBC/100 WBC (Bld) [Ratio] 0 % 0-5 [facility] Platelet mean volume (Bld) [Entitic vol] 10.4 fL 6.2-12.0 [facility] Platelets (Bld) [#/Vol] 305 10*3/uL 150-450 [facility] No Panel InformationOrdered By: Julianna Matthews on 02-17-2024 Estimated Creatinine Clearance Calc 32.13 ml/min [facility] Estimated GFR (MDRD) Amer 40 mL/min >60 [facility] Comment on above: GFR Calc Estimated GFR (MDRD) Non-Af Amer 33 mL/min >60 [facility] Comment on above: Non- GFR Calc RBC Auto (Bld) [#/Vol]Ordere d By: Julianna Matthews on 02-17-2024 RBC (Bld) [#/Vol] 3.83 10*6/uL 4.2-5.4 [facility] Serum or plasma calcium yunior urement (mass/volume)Ordered By: Julianna Matthews on 02-17-2024 Calcium [Mass/Vol] 8.7 mg/dL 8.5-10.1 [facility] Serum or plasma creatinine m easurement (mass/volume)Ordered By: Julianna Matthews on 02-17-2024 Creatinine [Mass/Vol] 1.62 mg/dL 0.55-1.02 [facility] Comment on above: The validity of the calculated GFR & GFRAA in patients over 70 years has not been determined. Clinical correlation is essential. Serum or plasma urea nitroge n measurement (mass/volume)Ordered By: Julianna Matthews on 02-17-2024 Urea nitrogen [Mass/Vol] 15 mg/dL 7-18 [facility] Thin prep Papanicolaou smear with manual screeningOrdered By: Julianna Matthews on 02-17-2024 Thin prep Papanicolaou smear with manual screening 5 5-15 [facility] Laboratory - Chemistry and C hemistry - challengeOrdered By: Julianna Matthews on 02-16-2024 Magnesium [Mass/Vol] 2.6 mg/dL 1.6-2.6 [facility] Basophil percentageOrdered B y: Andres Fraser on 02-15-2024 Basophil percentage 3.5 mg/dL 2.5-4.9 [facility] Bilirubin [Mass/Vol] 0.90 mg/dL 0.20-1.00 [facility] Comment on above: For patients on eltr ombopag therapy, use of Dimension Howard TBIL is not recommended. Protein [Mass/Vol] 6.7 g/dL 6.4-8.2 [facility] Laboratory - Chemistry and C hemistry - challengeOrdered By: Andres Fraser on 02-15-2024 Albumin/Globulin [Mass ratio] 0.5 {ratio} 0.9-2.4 [facility] ALP [Catalytic activity/Vol] 83 U/L 45-117 [facility] ALT [Catalytic activity/Vol] U/L 13-56 [facility] Globulin (S) [Mass/Vol] 4.4 g/dL 2.2-4.2 [facility] Thin prep Papanicolaou smear with manual screeningOrdered By: Andres Fraser on 02-15-2024 Thin prep Papanicolaou smear with manual screening 2.3 g/dL 3.2-5.0 [facility] Thin prep Papanicolaou smear with manual screening 13 U/L 15-37 [facility] Absolute lymphocyte countOrd ered By: Altaf Villa on 02-14-2024 Lymphocytes Auto (Unsp spec) [#/Vol] 5.01 10*3/uL 0.83-4.51 [facility] Activated partial thrombopla stin time (aPTT) in platelet poor plasma by coagulation aOrdered By: Altaf Villa on 02-14-2024 aPTT Coag (PPP) [Time] 29.4 s 24.1-36.2 [facility] Automated lymphocyte count a s percentage of total leukocytesOrdered By: Altaf Villa on 02-14-2024 Lymphocytes/100 WBC Auto (Unsp spec) 30.3 % 19-41 [facility] Basophil percentageOrdered B y: Altaf Villa on 02-14-2024 Basophil percentage >100 SEEN /hpf 0-5 [facility] Basophils/100 WBC (Bld) 0.4 % 0-1 [facility] Bilirubin [Mass/Vol] 0.60 mg/dL 0.20-1.00 [facility] Comment on above: For patients on eltr ombopag therapy, use of Dimension [place] TBIL is not recommended. Chloride [Moles/Vol] 106 mmol/L 98-107 [facility] Eosinophils/100 WBC (Bld) 1.3 % 0-5 [facility] Glucose [Mass/Vol] 112 mg/dL 74-106 [facility] Comment on above: Fasting Glucose resu lt from 100 to 125 mg/dL suggests IMPAIRED HOMEOSTASIS per A.D.A. criteria. Hemoglobin (Bld) [Mass/Vol] 13.9 g/dL 12.0-15.0 [facility] Lactate [Moles/Vol] 1.0 mmol/L 0.4-2.0 [facility] Monocytes/100 WBC (Bld) 6.2 % 0-10 [facility] Neutrophils (Bld) [#/Vol] 10.2 10*3/uL 2.0-7.7 [facility] Neutrophils/100 WBC (Bld) 61.4 % 47-70 [facility] Potassium [Moles/Vol] 3.6 mmol/L 3.5-5.1 [facility] Protein [Mass/Vol] 8.0 g/dL 6.4-8.2 [facility] Sodium [Moles/Vol] 138 mmol/L 136-145 [facility] WBC (Bld) [#/Vol] 16.6 10*3/uL 4.4-11.0 [facility] Bilirubin Test strip Ql (U)O rdered By: Altaf Villa on 02-14-2024 Bilirubin Ql (U) Negative Negative [facility] Blood manual differential co mment interpretation (narrative result)Ordered By: Altaf Villa on 02-14-2024 Manual differential comment Pollo (Bld) [Interp] SEE COMMENT [facility] Comment on above: LYMPHOCYTOSIS NOTED Blood platelet adequacy dete ction by light microscopyOrdered By: Altaf Villa on 02-14-2024 Platelets LM Ql (Bld) ADEQUATE ADEQ [facility] Culture, urineOrdered By: Eric Villa on 02-14-2024 Bacteria identified Cx Nom (U) Pseudomonas aeruginosa [facility] Bacteria identified Cx Nom (U) Enterococcus faecalis [facility] Bacteria identified Cx Nom (U) Deandra albicans [facility] Determination of erythrocyte mean corpuscular volume (MCV)Ordered By: Altaf Villa on 02-14-2024 MCV (RBC) [Entitic vol] 97.0 fL 81-99 [facility] Erythrocyte distribution wid th ratioOrdered By: Altafclaudia Villa on 02-14-2024 Erythrocyte distribution width (RBC) [Ratio] 13.2 % 11.6-14.6 [facility] Erythrocyte distribution wid th standard deviationOrdered By: Altafclaudia Villa on 02-14-2024 Erythrocyte distribution width (RBC) [Entitic vol] 46.9 fL 35.1-43.9 [facility] Hematocrit Auto (Bld) [Volum e fraction]Ordered By: Altafclaudia Villa on 02-14-2024 Hematocrit (Bld) [Volume fraction] 41.8 % 37-47 [facility] Immature granulocytes/100 WB C Auto (Bld)Ordered By: Altafclaudia Villa on 02-14-2024 Immature granulocytes/100 WBC (Bld) 0.400 % 0.0-0.9 [facility] Comment on above: IG% - Immature Granu locytes (promyelocytes, myelocytes and metamyelocytes) > 1% indicates that a LEFT SHIFT is Present. Ketones Test strip Ql (U)Ord ered By: Altaf Villa on 02-14-2024 Ketones Ql (U) Negative Negative [facility] Laboratory - Chemistry and C hemistry - challengeOrdered By: Altafclaudia Villa on 02-14-2024 Albumin/Globulin [Mass ratio] 0.6 {ratio} 0.9-2.4 [facility] ALP [Catalytic activity/Vol] 104 U/L 45-117 [facility] ALT [Catalytic activity/Vol] 11 U/L 13-56 [facility] CO2 [Moles/Vol] 25.0 mmol/L 21.0-32.0 [facility] Globulin (S) [Mass/Vol] 5.1 g/dL 2.2-4.2 [facility] Urea nitrogen/Creatinine [Mass ratio] 12.0 mg/mg 10-20 [facility] Laboratory - CoagulationOrde red By: Altaf Villa on 02-14-2024 INR Coag (Bld) [Relative time] 1.0 {INR} [facility] PT Coag (PPP) [Time] 13.4 s 11.7-14.9 [facility] Laboratory - Hematology and Cell countsOrdered By: Altaf Villa on 02-14-2024 Anisocytosis Ql (Bld) RARE [facility] MCH (RBC) [Entitic mass] 32.3 pg 27.0-32.0 [facility] MCHC (RBC) [Mass/Vol] 33.3 g/dL 32-36 [facility] Nucleated RBC/100 WBC (Bld) [Ratio] 0 % 0-5 [facility] Platelet mean volume (Bld) [Entitic vol] 10.5 fL 6.2-12.0 [facility] Platelets (Bld) [#/Vol] 376 10*3/uL 150-450 [facility] Laboratory - Microbiology an d Antimicrobial susceptibilityOrdered By: Altaf Villa on 02-14-2024 Bacteria identified Cx Nom (Bld) No growth in 5 days. [facility] Macrocytes detectionOrdered By: Altaf Villa on 02-14-2024 Macrocytes Ql (Bld) RARE [facility] Mucus LM Ql (Urine sed)Order ed By: Altaf Villa on 02-14-2024 Mucus Ql (Urine sed) 0 SEEN /hpf [facility] Nitrite Test strip Ql (U)Ord ered By: Altaf Villa on 02-14-2024 Nitrite Ql (U) Negative Negative [facility] No Panel InformationOrdered By: Altaf Villa on 02-14-2024 Urine RBC 10-25 SEEN /hpf 0-5 [facility] Atypical Lymphocytes 1+ % [facility] Estimated Creatinine Clearance Calc 29.74 ml/min [facility] Estimated GFR (MDRD) Amer 37 mL/min >60 [facility] Comment on above: GFR Calc Estimated GFR (MDRD) Non-Af Amer 30 mL/min >60 [facility] Comment on above: Non- GFR Calc Ovalocyte detectionOrdered B y: Altaf Villa on 02-14-2024 Ovalocytes LM Ql (Bld) RARE [facility] Protein Test strip Ql (U)Ord ered By: Altaf Villa on 02-14-2024 Protein Ql (U) 100 mg/dl Negative [facility] RBC Auto (Bld) [#/Vol]Ordere d By: Altaf Villa on 02-14-2024 RBC (Bld) [#/Vol] 4.31 10*6/uL 4.2-5.4 [facility] RBC morphologyOrdered By: Eric Villa on 02-14-2024 RBC morphology finding Nom (Bld) N CHROM NORMAL NORM C&C [facility] Serum or plasma calcium yunior urement (mass/volume)Ordered By: Altaf Villa on 02-14-2024 Calcium [Mass/Vol] 8.4 mg/dL 8.5-10.1 [facility] Serum or plasma creatinine m easurement (mass/volume)Ordered By: Altaf Villa on 02-14-2024 Creatinine [Mass/Vol] 1.75 mg/dL 0.55-1.02 [facility] Comment on above: The validity of the calculated GFR & GFRAA in patients over 70 years has not been determined. Clinical correlation is essential. Serum or plasma urea nitroge n measurement (mass/volume)Ordered By: Altaf Villa on 02-14-2024 Urea nitrogen [Mass/Vol] 21 mg/dL 7-18 [facility] Squamous epithelial cells de tection in urine sediment by light microscopyOrdered By: Altaf Villa on 02-14-2024 Epithelial cells.squamous LM Ql (Urine sed) 0 SEEN /hpf 5-10 [facility] Thin prep Papanicolaou smear with manual screeningOrdered By: Altaf Villa on 02-14-2024 Thin prep Papanicolaou smear with manual screening 2.9 g/dL 3.2-5.0 [facility] Thin prep Papanicolaou smear with manual screening 12 U/L 15-37 [facility] Thin prep Papanicolaou smear with manual screening 7 5-15 [facility] Transitional cells detection in urine sediment by light microscopyOrdered By: Altaf Villa on 02-14-2024 Transitional cells LM Ql (Urine sed) 0-5 SEEN /hpf 0-5 [facility] Urine blood detectionOrdered By: Altaf Villa on 02-14-2024 RBC Ql (U) 250 /ul Negative [facility] Urine clarityOrdered By: Altaf Villa on 02-14-2024 Clarity (U) Cloudy Clear [facility] Urine color determinationOrd ered By: Altaf Villa on 02-14-2024 Color (U) Yellow Yellow [facility] Urine glucose detectionOrder ed By: Altaf Villa on 02-14-2024 Glucose Ql (U) Normal mg/dl Normal [facility] Urine leukocyte esterase det ection by dipstickOrdered By: Altaf Villa on 02-14-2024 Leukocyte esterase Test strip Ql (U) 500 /ul Negative [facility] Urine pHOrdered By: Altaf avalos on 02-14-2024 pH (U) 6.5 [pH] 5.0 - 8.0 [facility] Urine sediment bacteria coun t by microscopy (number/high power field)Ordered By: Altaf Villa on 02-14-2024 Bacteria LM.HPF (Urine sed) [#/Area] RARE /hpf None Seen [facility] Urine sediment renal epithel ial cell count by microscopy (number/high power field)Ordered By: Altaf Villa on 02-14-2024 Epithelial cells.renal LM.HPF (Urine sed) [#/Area] 0 /[HPF] 0-5 [facility] Urine specific gravity measu rementOrdered By: Altaf Villa on 02-14-2024 Specific gravity (U) [Rel density] 1.010 1.002-1.03 0 [facility] Urine urobilinogen measureme ntOrdered By: Altaf Villa on 02-14-2024 Urobilinogen Ql (U) Normal mg/dl Normal [facility] Absolute lymphocyte countOrd ered By: Gerardo Gacría on 02-04-2024 Lymphocytes Auto (Unsp spec) [#/Vol] 6.11 10*3/uL 0.83-4.51 [facility] Automated lymphocyte count a s percentage of total leukocytesOrdered By: Gerardo García on 02-04-2024 Lymphocytes/100 WBC Auto (Unsp spec) 44.3 % 19-41 [facility] Basophil percentageOrdered B y: Gerardo García on 02-04-2024 Basophils/100 WBC (Bld) 0.5 % 0-1 [facility] Bilirubin [Mass/Vol] 0.40 mg/dL 0.20-1.00 [facility] Comment on above: For patients on eltr ombopag therapy, use of Dimension Howard TBIL is not recommended. Chloride [Moles/Vol] 108 mmol/L 98-107 [facility] Cholesterol [Mass/Vol] 173 mg/dL <200 [facility] Comment on above: <200 mg/dL Desirable 200-240 mg/dL Borderline >240 mg/dL High Risk Eosinophils/100 WBC (Bld) 1.2 % 0-5 [facility] Glucose [Mass/Vol] 96 mg/dL 74-106 [facility] Hemoglobin (Bld) [Mass/Vol] 13.3 g/dL 12.0-15.0 [facility] Monocytes/100 WBC (Bld) 5.3 % 0-10 [facility] Neutrophils (Bld) [#/Vol] 6.7 10*3/uL 2.0-7.7 [facility] Neutrophils/100 WBC (Bld) 48.3 % 47-70 [facility] Potassium [Moles/Vol] 3.8 mmol/L 3.5-5.1 [facility] Protein [Mass/Vol] 8.4 g/dL 6.4-8.2 [facility] Sodium [Moles/Vol] 140 mmol/L 136-145 [facility] Triglyceride [Mass/Vol] 97 mg/dL <199 [facility] Comment on above: The drugs N-Acetylcy steine and Metamizole may falsely depress this assay.Serum Triglycerides Reference Interval Normal <150 mg/dL Borderline high 150 - 199 mg/dL High 200 - 499 mg/dL Very High > or = 500 mg/dL WBC (Bld) [#/Vol] 13.8 10*3/uL 4.4-11.0 [facility] Blood manual differential co mment interpretation (narrative result)Ordered By: Gerardo García on 02-04-2024 Manual differential comment Pollo (Bld) [Interp] SCANNED [facility] Determination of erythrocyte mean corpuscular volume (MCV)Ordered By: Gerardo García on 02-04-2024 MCV (RBC) [Entitic vol] 99.3 fL 81-99 [facility] Erythrocyte distribution wid th ratioOrdered By: Gerardo García on 02-04-2024 Erythrocyte distribution width (RBC) [Ratio] 13.5 % 11.6-14.6 [facility] Erythrocyte distribution wid th standard deviationOrdered By: Gerardo Ricky on 02-04-2024 Erythrocyte distribution width (RBC) [Entitic vol] 49.2 fL 35.1-43.9 [facility] Hematocrit Auto (Bld) [Volum e fraction]Ordered By: [facility] Ricky on 02-04-2024 Hematocrit (Bld) [Volume fraction] 41.6 % 37-47 [facility] Immature granulocytes/100 WB C Auto (Bld)Ordered By: [facility] on 02-04-2024 Immature granulocytes/100 WBC (Bld) 0.400 % 0.0-0.9 [facility] Comment on above: IG% - Immature Granu locytes (promyelocytes, myelocytes and metamyelocytes) > 1% indicates that a LEFT SHIFT is Present. Laboratory - Chemistry and C hemistry - challengeOrdered By: [facility] 02-[facility]24 Albumin/Globulin [Mass ratio] 0.5 {ratio} 0.9-2.4 [facility] ALP [Catalytic activity/Vol] 107 U/L 45-117 [facility] ALT [Catalytic activity/Vol] 12 U/L 13-56 [facility] Cholesterol in HDL [Mass/Vol] 44 mg/dL >40 [facility] Comment on above: The drugs N-Acetylcy steine and Metamizole may falsely depress this assay. Reference Range HDL <40 mg/dL Low HDL Cholesterol HDL >or= 60 mg/dL High HDL Cholesterol Cholesterol in LDL [Mass/Vol] 110 mg/dL 0-130 [facility] CO2 [Moles/Vol] 25.0 mmol/L 21.0-32.0 [facility] Globulin (S) [Mass/Vol] 5.5 g/dL 2.2-4.2 [facility] Urea nitrogen/Creatinine [Mass ratio] 10.4 mg/mg 10-20 [facility] Laboratory - Hematology and Cell countsOrdered By: Gerardo Ricky 02-04-2024 MCH (RBC) [Entitic mass] 31.7 pg 27.0-32.0 [facility] MCHC (RBC) [Mass/Vol] 32.0 g/dL 32-36 [facility] Nucleated RBC/100 WBC (Bld) [Ratio] 0 % 0-5 [facility] Platelet mean volume (Bld) [Entitic vol] 10.4 fL 6.2-12.0 [facility] Platelets (Bld) [#/Vol] 398 10*3/uL 150-450 [facility] No Panel InformationOrdered By: Gerardo García on 02-04-2024 Estimated GFR (MDRD) Amer 33 mL/min >60 [facility] Comment on above: GFR Calc Estimated GFR (MDRD) Non-Af Amer 27 mL/min >60 [facility] Comment on above: Non- GFR Calc Vitamin D 25-Hydroxy 56.2 ng/mL [facility] Comment on above: Vitamin D 25(OH) Sta tus Range Deficiency <20 ng/mL (50nmol/L) Insufficiency 20 - 30 ng/mL (50 - 75 nmol/L) Sufficiency 30 - 100 ng/mL (75 - 250 nmol/L) Toxicity >100 ng/mL (>250 nmol/L) VLDL Cholesterol 19 mg/dL 5-40 [facility] RBC Auto (Bld) [#/Vol]Ordere d By: Gerardo García on 02-04-2024 RBC (Bld) [#/Vol] 4.19 10*6/uL 4.2-5.4 [facility] Serum or plasma calcium yunior urement (mass/volume)Ordered By: Gerardo García on 02-04-2024 Calcium [Mass/Vol] 8.4 mg/dL 8.5-10.1 [facility] Serum or plasma creatinine m easurement (mass/volume)Ordered By: Gerardo García on 02-04-2024 Creatinine [Mass/Vol] 1.93 mg/dL 0.55-1.02 [facility] Comment on above: The validity of the calculated GFR & GFRAA in patients over 70 years has not been determined. Clinical correlation is essential. Serum or plasma thyroid stim ulating hormone (TSH) measurement (units/volume)Ordered By: Gerardo García on 02-04-2024 TSH Qn 3.91 uIU/mL 0.358-3.74 [facility] Serum or plasma urea nitroge n measurement (mass/volume)Ordered By: Gerardo García on 02-04-2024 Urea nitrogen [Mass/Vol] 20 mg/dL 7-18 [facility] Thin prep Papanicolaou smear with manual screeningOrdered By: Gerarod García on 02-04-2024 Thin prep Papanicolaou smear with manual screening 2.9 g/dL 3.2-5.0 [facility] Thin prep Papanicolaou smear with manual screening 15 U/L 15-37 [facility] Thin prep Papanicolaou smear with manual screening 7 5-15 [facility] BRIEF OP NOTon 01-01-2024 BRIEF OP NOT HNO ID: [id number] Author: JOSE L PATEL MD Service: Radiology Author Type: Physician Type: Brief Op Note Filed: 01/01/2024 13:28 Note Text: INTERVENTIONAL RADIOLOGY POST PROCEDURE NOTE DATE: 01/01/24 NAME: Todd Delong LOG ID: [id number] 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 A new 35 cm 8 Polish Skater APDL locking pigtail drain was placed [...] placed in the left renal collecting system. 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 5 mg/dL [facility] Chloride [Moles/Vol] 109 mmol/L High 98 - 10 7 mmol/L [facility] CO2 [Moles/Vol] 24 mmol/L 21 - 32 mmol/L [facility] Creatinine [Mass/Vol] 2.09 mg/dL High 0.51 - 0.95 mg/dL [facility] Estimated Glomerular Filtration Rate 25 mL/min/1.73m Low >=60 mL/min/1.7 3m [facility] Glucose [Mass/Vol] 96 mg/dL 70 - 100 mg/dL [facility] Potassium [Moles/Vol] 4.1 mmol/L 3.5 - 5.1 mmol/L [facility] Sodium [Moles/Vol] 141 mmol/L 136 - 145 mmol/L [facility] Urea nitrogen [Mass/Vol] 23 mg/dL 7 - 26 mg/dL [facility] CNPNon 12-20-2023 CNPN Telephone (SHAYE) -- TODD DELONG ([id number]) 1950 F Date Time Provider Department 12/20/23 [...] that she has been waking up with "my bed and clothes being damp" recently in the past 2 weeks. No [...] was regular at 86. Please call pt [phone] or pt's daughter [phone] for adivce. Thank you Allergies As of [...] - ALBUTEROL SULFATE (VENTOLIN INHALATION) Inhale 1 [place] as instructed every 4 hours as needed [...] Encounter Status:Closed [facility] C[facility] Tele[facility] (HCSIND) -- TODD DELONG ([id number]) 1950 F Date Time Provider Department 12/10/23 TAMIE BOONE [facility] During your visit today, we recorded the [...] - ALBUTEROL SULFATE (VENTOLIN INHALATION) Inhale 1 [place] as instructed every 4 hours as needed [...] Status:Closed by TAMIE BOONE on 12/10/23 [facility]ine 11-29-2023 JEAN Telephone (HCSIND) -- JAVIERARTISKian Perla ([id number]) 1950 F Date Time Provider Department 11/29/23 JOEY FREED During your visit today, we recorded the [...] please reply all, I have included pt's supervisor case loading on this message as well. Or call pt with any other advice. [phone] oTdd Delong Thank you! JeremyJin mcginnis MD 11/30/2023 3:03 PM Signed If the [...] - ALBUTEROL SULFATE (VENTOLIN INHALATION) Inhale 1 [place] as instructed every 4 hours as needed [...] Encounter Status:Closed by JOEY FREED on 11/29/23 [facility] -- TODD DELONG ([id number]) 1950 F Date Time Provider Department 11/26/23 [...] - ALBUTEROL SULFATE (VENTOLIN INHALATION) Inhale 1 [place] as instructed every 4 hours as needed [...] Encounter Status:Closed by TRUDY HOWELL on 12/10/23 [facility]ine 11-24-2023 CNPN Telephone (HCSIND) -- TODD DELONG ([id number]) 1950 F Date Time Provider Department 11/24/23 [...] - ALBUTEROL SULFATE (VENTOLIN INHALATION) Inhale 1 [place] as instructed every 4 hours as needed. [...] 10/10/2023 Hydronephrosis [N13.30] 11/17/2023 Encounter Status:Closed by PAZ CANO on 11/24/23 [facility]ine 11-23-2023 JEAN Telephone (HCSIND) -- TODD DELONG ([id number]) 1950 F Date Time Provider Department 11/23/23 BERNADETTE KING HCSIND During your visit today, we recorded the following information about you: Bernadette King LPN 11/23/2023 4:05 PM Signed Hello there! (Spoke with: Lily- daughter ) My name is Bernadette King LPN and I'm calling from [facility]. Your doctor wants to make [...] them to call or text you? Call [phone] Great! What address will we be seeing you at? [address], [place] [address] Do you have any upcoming appointments or [...] - ALBUTEROL SULFATE (VENTOLIN INHALATION) Inhale 1 [place] as instructed every 4 hours as needed. [...] JESSICA KING (more content not included)... Normal [facility] Telephone (HCSIND) -- TODD DELONG ([id number]) 1950 F Date Time Provider Department 11/23/23 RED GOMES HCSIND During your visit today, we recorded the following information about you: Red Gomes 11/23/2023 2:52 PM Signed 11/23/2023 Unable to LM for Patient to return call to [facility] Red [place] Allergies As of Date: [...] - ALBUTEROL SULFATE (VENTOLIN INHALATION) Inhale 1 [place] as instructed every 4 hours as needed. [...] Status:Closed by RED GOMES on 11/23/23 Normal [facility] Absolute lymphocyte countOrd ered By: Brian Mckee on 11-16-2023 Lymphocytes Auto (Unsp spec) [#/Vol] 3.40 10*3/uL 0.83-4.51 [facility] Basophil percentageOrdered B y: Brian Mckee on 11-16-2023 Basophil percentage 50-100 SEEN /hpf 0-5 [facility] Comment on above: Previous reported re sult: 5-10 SEEN /hpfEdited by: HARMONY on 11/16/23:1900 AMENDED REPORT 11/16/231900 WBC previously reported as: 5-10 SEEN /hpf Bilirubin [Mass/Vol] 0.70 mg/dL 0.20-1.00 [facility] Comment on above: For patients on eltr ombopag therapy, use of Dimension Howard TBIL is not recommended. Chloride [Moles/Vol] 112 mmol/L 98-107 [facility] Glucose [Mass/Vol] 92 mg/dL 74-106 [facility] Lactate [Moles/Vol] 0.8 mmol/L 0.4-2.0 [facility] Potassium [Moles/Vol] 4.7 mmol/L 3.5-5.1 [facility] Comment on above: Moderate Hemolysis, Result may be falsely increased. Protein [Mass/Vol] 6.9 g/dL 6.4-8.2 [facility] Sodium [Moles/Vol] 136 mmol/L 136-145 [facility] Basophils/100 WBC (Bld) 0.4 % 0-1 [facility] Eosinophils/100 WBC (Bld) 0.2 % 0-5 [facility] Neutrophils (Bld) [#/Vol] 14.4 10*3/uL 2.0-7.7 [facility] Neutrophils/100 WBC (Bld) 75.4 % 47-70 [facility] WBC (Bld) [#/Vol] 19.1 10*3/uL 4.4-11.0 [facility] Bilirubin Test strip Ql (U)O rdered By: Brian Mckee on 11-16-2023 Bilirubin Ql (U) Negative Negative [facility] Blood erythrocytes count (nu mber/volume)Ordered By: Brian Mckee on 11-16-2023 RBC (Bld) [#/Vol] 3.51 10*6/uL 4.2-5.4 [facility] Blood hemoglobin measurement (mass/volume)Ordered By: Brian Mckee on 11-16-2023 Hemoglobin (Bld) [Mass/Vol] 11.0 g/dL 12.0-15.0 [facility] Blood lymphocytes/100 leukoc ytesOrdered By: Brian Mckee on 11-16-2023 Lymphocytes/100 WBC (Bld) 17.8 % 19-41 [facility] Blood monocytes/100 leukocyt esOrdered By: Brian Mckee on 11-16-2023 Monocytes/100 WBC (Bld) 5.1 % 0-10 [facility] Blood platelet adequacy dete ction by light microscopyOrdered By: Brian Mckee on 11-16-2023 Platelets LM Ql (Bld) ADEQUATE ADEQ [facility] Blood platelet mean volumeOr dered By: Brian Mckee on 11-16-2023 Platelet mean volume (Bld) [Entitic vol] 11.2 fL 6.2-12.0 [facility] Culture, urineOrdered By: Viktor Mckee on 11-16-2023 Bacteria identified Cx Nom (U) Deandra albicans [facility] Determination of erythrocyte mean corpuscular volume (MCV)Ordered By: Brian Mckee on 11-16-2023 MCV (RBC) [Entitic vol] 98.3 fL 81-99 [facility] Hematocrit Auto (Bld) [Volum e fraction]Ordered By: Brian Mckee on 11-16-2023 Hematocrit (Bld) [Volume fraction] 34.5 % 37-47 [facility] Ketones Test strip Ql (U)Ord ered By: Brian Mckee on 11-16-2023 Ketones Ql (U) Negative Negative [facility] Laboratory - Chemistry and C hemistry - challengeOrdered By: Brian Mckee on 11-16-2023 ALP [Catalytic activity/Vol] 96 U/L 45-117 [facility] ALT [Catalytic activity/Vol] 8 U/L 13-56 [facility] CO2 [Moles/Vol] 15.0 mmol/L 21.0-32.0 [facility] Globulin (S) [Mass/Vol] 5.1 g/dL 2.2-4.2 [facility] Urea nitrogen/Creatinine [Mass ratio] 5.8 mg/mg 10-20 [facility] Laboratory - CoagulationOrde red By: Brian Mckee on 11-16-2023 aPTT Coag (Bld) [Time] 30.1 s 24.1-36.2 [facility] PT Coag (PPP) [Time] 15.1 s 11.7-14.9 [facility] Laboratory - Hematology and Cell countsOrdered By: Brian Mckee on 11-16-2023 Erythrocyte distribution width (RBC) [Entitic vol] 55.7 fL 35.1-43.9 [facility] Erythrocyte distribution width (RBC) [Ratio] 15.6 % 11.6-14.6 [facility] Immature granulocytes/100 WBC (Bld) 1.100 % 0.0-0.9 [facility] Comment on above: IG% - Immature Granu locytes (promyelocytes, myelocytes and metamyelocytes) > 1% indicates that a LEFT SHIFT is Present. MCH (RBC) [Entitic mass] 31.3 pg 27.0-32.0 [facility] Nucleated RBC/100 WBC (Bld) [Ratio] 0 % 0-5 [facility] Laboratory - Microbiology an d Antimicrobial susceptibilityOrdered By: Brian Mckee on 11-16-2023 SARS-CoV-2 (COVID-19) RNA BOBBI+probe Ql (Unsp spec) [facility] Bacteria identified Cx Nom (Bld) No growth in 5 days. [facility] MCHC Auto (RBC) [Mass/Vol]Or dered By: Brian Mckee on 11-16-2023 MCHC (RBC) [Mass/Vol] 31.9 g/dL 32-36 [facility] Mucus LM Ql (Urine sed)Order ed By: Brian Mckee on 11-16-2023 Mucus Ql (Urine sed) 0 SEEN /hpf [facility] Nitrite Test strip Ql (U)Ord ered By: Brian Mckee on 11-16-2023 Nitrite Ql (U) Negative Negative [facility] No Panel InformationOrdered By: Brian Mckee on 11-16-2023 Ionized Calcium 3.57 mg/dL 4.36-5.20 [facility] Estimated Creatinine Clearance Calc 13.14 ml/min [facility] Estimated GFR (MDRD) Amer 14 mL/min >60 [facility] Comment on above: GFR Calc Estimated GFR (MDRD) Non-Af Amer 12 mL/min >60 [facility] Comment on above: Non- GFR Calc Troponin I High Sensitivity 16 pg/mL 3.0-54.0 [facility] Comment on above: Please Note: New [place] t Units and Gender Specific Reference Ranges. For more information see Policy Stat Procedure Howard High Sensitivity Troponin (TNIH) and attachments. Platelets bldOrdered By: Eladio Mckee on 11-16-2023 Platelets (Bld) [#/Vol] TNP [facility] Comment on above: Test not performedPl ease note: For this sample, a platelet estimate is provided rather than a platelet count due to platelet clumping. Other parameters associated with this sample are not affected by platelet clumping. If a more accurate platelet count is required, a redraw of the patient will be necessary.Previous reported result: [id number] by: ULISES on 11/16/23:1801 Protein Test strip Ql (U)Ord ered By: Brian Mckee on 11-16-2023 Protein Ql (U) 30 mg/dl Negative [facility] Serum or plasma albumin yunior urement (mass/volume)Ordered By: Brian Mckee on 11-16-2023 Albumin [Mass/Vol] 1.8 g/dL 3.2-5.0 [facility] Serum or plasma albumin/glob ulin mass ratioOrdered By: Brian Mckee on 11-16-2023 Albumin/Globulin [Mass ratio] 0.4 {ratio} 0.9-2.4 [facility] Serum or plasma calcium yunior urement (mass/volume)Ordered By: Brian Mckee on 11-16-2023 Calcium [Mass/Vol] 5.9 mg/dL 8.5-10.1 [facility] Comment on above: Critical Result(s) C alled at: 19:17:50 11/16/2023 by: Africa Nino to MMartin2. Results read back by same. Serum or plasma creatinine m easurement (mass/volume)Ordered By: Brian Mckee on 11-16-2023 Creatinine [Mass/Vol] 3.96 mg/dL 0.55-1.02 [facility] Comment on above: The validity of the calculated GFR & GFRAA in patients over 70 years has not been determined. Clinical correlation is essential. Serum or plasma urea nitroge n measurement (mass/volume)Ordered By: Brian Mckee on 11-16-2023 Urea nitrogen [Mass/Vol] 23 mg/dL 7-18 [facility] Squamous epithelial cells de tection in urine sediment by light microscopyOrdered By: Brian Mckee on 11-16-2023 Epithelial cells.squamous LM Ql (Urine sed) 0 SEEN /hpf 5-10 [facility] Thin prep Papanicolaou smear with manual screeningOrdered By: Brian Mckee on 11-16-2023 Thin prep Papanicolaou smear with manual screening 16 U/L 15-37 [facility] Comment on above: Moderate Hemolysis, Result may be falsely increased. Thin prep Papanicolaou smear with manual screening 9 5-15 [facility] Urine blood detectionOrdered By: Brian Mckee on 11-16-2023 RBC Ql (U) 50 /ul Negative [facility] RBC Ql (U) 0 SEEN /hpf 0-5 [facility] Urine clarityOrdered By: Eladio Mckee on 11-16-2023 Clarity (U) Sl. Cloudy Clear [facility] Urine color determinationOrd ered By: Brian Mckee on 11-16-2023 Color (U) Yellow Yellow [facility] Urine glucose detectionOrder ed By: Brian Mckee on 11-16-2023 Glucose Ql (U) Normal mg/dl Normal [facility] Urine leukocyte esterase det ection by dipstickOrdered By: Brian Mckee on 11-16-2023 Leukocyte esterase Test strip Ql (U) 500 /ul Negative [facility] Urine pHOrdered By: Brian delarosa on 11-16-2023 pH (U) 6.5 [pH] 5.0 - 8.0 [facility] Urine sediment bacteria coun t by microscopy (number/high power field)Ordered By: Brian Mckee on 11-16-2023 Bacteria LM.HPF (Urine sed) [#/Area] 0 /[HPF] None Seen [facility] Urine specific gravity measu rementOrdered By: Brian Mckee on 11-16-2023 Specific gravity (U) [Rel density] 1.005 1.002-1.03 0 [facility] Urobilinogen Auto test strip Ql (U)Ordered By: Brian Mckee on 11-16-2023 Urobilinogen Ql (U) Normal mg/dl Normal [facility] Whole blood international no rmalized ratio (INR)Ordered By: Brian Mckee on 11-16-2023 INR Coag (Bld) [Relative time] 1.2 {INR} [facility] Absolute lymphocyte countOrd ered By: Rafa Lofton on 11-13-2023 Lymphocytes Auto (Unsp spec) [#/Vol] 3.47 10*3/uL 0.83-4.51 [facility] Basophil percentageOrdered B y: Rafa Lofton on 11-13-2023 Basophil percentage 83 mg/dL 74-106 [facility] Basophil percentage 6.2 g/dL 6.4-8.2 [facility] Basophil percentage 0.50 mg/dL 0.20-1.00 [facility] Basophil percentage 139 mmol/L 136-145 [facility] Basophil percentage 3.7 mmol/L 3.5-5.1 [facility] Basophil percentage 112 mmol/L 98-107 [facility] Basophils (Bld) [#/Vol] 18.3 10*3/uL 4.4-11.0 [facility] Basophils (Bld) [#/Vol] 13.5 10*3/uL 2.0-7.7 [facility] Basophils/100 WBC (Bld) 74.1 % 47-70 [facility] Basophils/100 WBC (Bld) 1.0 % 0-5 [facility] Basophils/100 WBC (Bld) 0.3 % 0-1 [facility] Bilirubin [Mass/Vol] 0.50 mg/dL 0.20-1.00 [facility] Comment on above: For patients on eltr ombopag therapy, use of Dimension Howard TBIL is not recommended. Chloride [Moles/Vol] 112 mmol/L 98-107 [facility] Eosinophils/100 WBC (Bld) 1.0 % 0-5 [facility] Glucose [Mass/Vol] 83 mg/dL 74-106 [facility] Neutrophils (Bld) [#/Vol] 13.5 10*3/uL 2.0-7.7 [facility] Neutrophils/100 WBC (Bld) 74.1 % 47-70 [facility] Potassium [Moles/Vol] 3.7 mmol/L 3.5-5.1 [facility] Protein [Mass/Vol] 6.2 g/dL 6.4-8.2 [facility] Sodium [Moles/Vol] 139 mmol/L 136-145 [facility] WBC (Bld) [#/Vol] 18.3 10*3/uL 4.4-11.0 [facility] Blood erythrocytes count (nu mber/volume)Ordered By: Rafa Lofton on 11-13-2023 RBC (Bld) [#/Vol] 3.11 10*6/uL 4.2-5.4 [facility] Blood hemoglobin measurement (mass/volume)Ordered By: Rafa Lofton on 11-13-2023 Hemoglobin (Bld) [Mass/Vol] 9.5 g/dL 12.0-15.0 [facility] Blood lymphocytes/100 leukoc ytesOrdered By: Rafa Lofton on 11-13-2023 Lymphocytes/100 WBC (Bld) 19.0 % 19-41 [facility] Blood monocytes/100 leukocyt esOrdered By: Rafa Lofton on 11-13-2023 Monocytes/100 WBC (Bld) 4.5 % 0-10 [facility] Blood platelet mean volumeOr dered By: Rafa Lofton on 11-13-2023 Platelet mean volume (Bld) [Entitic vol] 10.1 fL 6.2-12.0 [facility] Determination of erythrocyte mean corpuscular volume (MCV)Ordered By: Rafa Lofton on 11-13-2023 MCV (RBC) [Entitic vol] 98.7 fL 81-99 [facility] Hematocrit Auto (Bld) [Volum e fraction]Ordered By: Rafa Lofton on 11-13-2023 Hematocrit (Bld) [Volume fraction] 30.7 % 37-47 [facility] Laboratory - Chemistry and C hemistry - challengeOrdered By: Rafa Lofton on 11-13-2023 ALP [Catalytic activity/Vol] 90 U/L 45-117 [facility] ALT [Catalytic activity/Vol] U/L 13-56 [facility] CO2 [Moles/Vol] 16.0 mmol/L 21.0-32.0 [facility] Globulin (S) [Mass/Vol] 4.6 g/dL 2.2-4.2 [facility] Urea nitrogen/Creatinine [Mass ratio] 6.2 mg/mg 10-20 [facility] Laboratory - Hematology and Cell countsOrdered By: Rafa Lofton on 11-13-2023 Erythrocyte distribution width (RBC) [Entitic vol] 55.6 fL 35.1-43.9 [facility] Erythrocyte distribution width (RBC) [Ratio] 15.5 % 11.6-14.6 [facility] Immature granulocytes/100 WBC (Bld) 1.100 % 0.0-0.9 [facility] Comment on above: IG% - Immature Granu locytes (promyelocytes, myelocytes and metamyelocytes) > 1% indicates that a LEFT SHIFT is Present. MCH (RBC) [Entitic mass] 30.5 pg 27.0-32.0 [facility] Nucleated RBC/100 WBC (Bld) [Ratio] 0 % 0-5 [facility] MCHC Auto (RBC) [Mass/Vol]Or dered By: Rafa Lofton on 11-13-2023 MCHC (RBC) [Mass/Vol] 30.9 g/dL 32-36 [facility] No Panel InformationOrdered By: Rafa Lofton on 11-13-2023 Estimated Creatinine Clearance Calc 12.88 ml/min [facility] Estimated GFR (MDRD) Amer 14 mL/min >60 [facility] Comment on above: GFR Calc Estimated GFR (MDRD) Non-Af Amer 12 mL/min >60 [facility] Comment on above: Non- GFR Calc 30.5 pg 27.0-32.0 [facility] 15.5 % 11.6-14.6 [facility] 55.6 fl 35.1-43.9 [facility] 1.100 % 0.0-0.9 [facility] 0 % 0-5 [facility] 12 mL/min >60 [facility] 14 mL/min >60 [facility] 12.88 ml/min [facility] 6.2 RATIO 10-20 [facility] 4.6 g/dL 2.2-4.2 [facility] 90 U/L 45-117 [facility] < 6 U/L 13-56 [facility] 16.0 mmol/L 21.0-32.0 [facility] Platelets bldOrdered By: Radha Lofton on 11-13-2023 Platelets (Bld) [#/Vol] 310 10*3/uL 150-450 [facility] Serum or plasma albumin yunior urement (mass/volume)Ordered By: Rafa Lofton on 11-13-2023 Albumin [Mass/Vol] 1.6 g/dL 3.2-5.0 [facility] Serum or plasma albumin/glob ulin mass ratioOrdered By: Rafa Lofton on 11-13-2023 Albumin/Globulin [Mass ratio] 0.3 {ratio} 0.9-2.4 [facility] Serum or plasma calcium yunior urement (mass/volume)Ordered By: Rafa Lofton on 11-13-2023 Calcium [Mass/Vol] 6.7 mg/dL 8.5-10.1 [facility] Serum or plasma creatinine m easurement (mass/volume)Ordered By: Rafa Lofton on 11-13-2023 Creatinine [Mass/Vol] 4.04 mg/dL 0.55-1.02 [facility] Comment on above: The validity of the calculated GFR & GFRAA in patients over 70 years has not been determined. Clinical correlation is essential. Serum or plasma urea nitroge n measurement (mass/volume)Ordered By: Rafa Lofton on 11-13-2023 Urea nitrogen [Mass/Vol] 25 mg/dL 7-18 [facility] Thin prep Papanicolaou smear with manual screeningOrdered By: Rafa Lofton on 11-13-2023 Thin prep Papanicolaou smear with manual screening 11 U/L 15-37 [facility] Thin prep Papanicolaou smear with manual screening 11 5-15 [facility] Blood manual differential co mment interpretation (narrative result)Ordered By: Rafa Lofton on 11-12-2023 Manual differential comment Pollo (Bld) [Interp] SCANNED [facility] Comment on above: NEUTROPHILLIA PRESEN T Basophil percentageOrdered B y: Andres Fraser on 11-11-2023 Basophil percentage 1.2 mmol/L 0.4-2.0 [facility] Lactate [Moles/Vol] 1.2 mmol/L 0.4-2.0 [facility] Absolute lymphocyte countOrd ered By: South Gutiérrez on 11-10-2023 Lymphocytes Auto (Unsp spec) [#/Vol] 7.90 10*3/uL 0.83-4.51 [facility] Bacteria identified Cx Nom ( U)Ordered By: Andres Fraser on 11-10-2023 Culture, urine Positive [facility] Basophil percentageOrdered B y: South Gutiérrez on 11-10-2023 Basophil percentage 111 mg/dL 74-106 [facility] Basophil percentage 8.3 g/dL 6.4-8.2 [facility] Basophil percentage 0.80 mg/dL 0.20-1.00 [facility] Basophil percentage 139 mmol/L 136-145 [facility] Basophil percentage 3.6 mmol/L 3.5-5.1 [facility] Basophil percentage 110 mmol/L 98-107 [facility] Basophil percentage 1.9 mmol/L 0.4-2.0 [facility] Basophils (Bld) [#/Vol] 21.9 10*3/uL 4.4-11.0 [facility] Basophils (Bld) [#/Vol] 12.4 10*3/uL 2.0-7.7 [facility] Basophils/100 WBC (Bld) 56.4 % 47-70 [facility] Basophils/100 WBC (Bld) 0.6 % 0-5 [facility] Basophils/100 WBC (Bld) 0.4 % 0-1 [facility] Basophil percentage >100 SEEN /hpf 0-5 [facility] Comment on above: Microscopic field is filled. Other elements may be obscured. Bilirubin Test strip Ql (U)O rdered By: South Gutiérrez on 11-10-2023 Bilirubin Ql (U) Negative Negative [facility] Blood erythrocytes count (nu mber/volume)Ordered By: South Gutiérrez on 11-10-2023 RBC (Bld) [#/Vol] 3.91 10*6/uL 4.2-5.4 [facility] Blood hemoglobin measurement (mass/volume)Ordered By: South Gutiérrez on 11-10-2023 Hemoglobin (Bld) [Mass/Vol] 12.3 g/dL 12.0-15.0 [facility] Blood lymphocytes/100 leukoc ytesOrdered By: South Gutiérrez on 11-10-2023 Lymphocytes/100 WBC (Bld) 36.1 % 19-41 [facility] Blood manual differential co mment interpretation (narrative result)Ordered By: South Gutiérrez on 11-10-2023 Manual differential comment Pollo (Bld) [Interp] SCANNED [facility] Blood monocytes/100 leukocyt esOrdered By: South Gutiérrez on 11-10-2023 Monocytes/100 WBC (Bld) 5.9 % 0-10 [facility] Blood platelet mean volumeOr dered By: South Gutiérrez on 11-10-2023 Platelet mean volume (Bld) [Entitic vol] 10.2 fL 6.2-12.0 [facility] Culture, urineOrdered By: Damir Fraser on 11-10-2023 Bacteria identified Cx Nom (U) Positive [facility] Determination of erythrocyte mean corpuscular volume (MCV)Ordered By: South Gutiérrez on 11-10-2023 MCV (RBC) [Entitic vol] 98.0 fL 81-99 [facility] Hematocrit Auto (Bld) [Volum e fraction]Ordered By: South Gutiérrez on 11-10-2023 Hematocrit (Bld) [Volume fraction] 38.3 % 37-47 [facility] Ketones Test strip Ql (U)Ord ered By: South Gutiérrez on 11-10-2023 Ketones Ql (U) Negative Negative [facility] Laboratory - Microbiology an d Antimicrobial susceptibilityOrdered By: South Gutiérrez on 11-10-2023 Bacteria identified Cx Nom (Bld) No growth in 5 days. [facility] MCHC Auto (RBC) [Mass/Vol]Or dered By: South Gutiérrez on 11-10-2023 MCHC (RBC) [Mass/Vol] 32.1 g/dL 32-36 [facility] Mucus LM Ql (Urine sed)Order ed By: South Gutiérrez on 11-10-2023 Mucus Ql (Urine sed) 0 SEEN /hpf [facility] Nitrite Test strip Ql (U)Ord ered By: South Gutiérrez on 11-10-2023 Nitrite Ql (U) Negative Negative [facility] No Panel InformationOrdered By: South Gutiérrez on 11-10-2023 31.5 pg 27.0-32.0 [facility] 15.4 % 11.6-14.6 [facility] 54.4 fl 35.1-43.9 [facility] 0.600 % 0.0-0.9 [facility] 0.1 % 0-5 [facility] 21 mL/min >60 [facility] 26 mL/min >60 [facility] 21.69 ml/min [facility] 6.2 RATIO 10-20 [facility] 5.8 g/dL 2.2-4.2 [facility] 112 U/L 45-117 [facility] 11 U/L 13-56 [facility] 19.0 mmol/L 21.0-32.0 [facility] Platelets bldOrdered By: Ismael Gutiérrez on 11-10-2023 Platelets (Bld) [#/Vol] 408 10*3/uL 150-450 [facility] Protein Test strip Ql (U)Ord ered By: South Gutiérrez on 11-10-2023 Protein Ql (U) 100 mg/dl Negative [facility] Serum or plasma albumin yunior urement (mass/volume)Ordered By: South Gutiérrez on 11-10-2023 Albumin [Mass/Vol] 2.5 g/dL 3.2-5.0 [facility] Serum or plasma albumin/glob ulin mass ratioOrdered By: South Gutiérrez on 11-10-2023 Albumin/Globulin [Mass ratio] 0.4 {ratio} 0.9-2.4 [facility] Serum or plasma calcium yunior urement (mass/volume)Ordered By: South Gutiérrez on 11-10-2023 Calcium [Mass/Vol] 7.6 mg/dL 8.5-10.1 [facility] Serum or plasma creatinine m easurement (mass/volume)Ordered By: South Gutiérrez on 11-10-2023 Creatinine [Mass/Vol] 2.40 mg/dL 0.55-1.02 [facility] Serum or plasma urea nitroge n measurement (mass/volume)Ordered By: South Gutiérrez on 11-10-2023 Urea nitrogen [Mass/Vol] 15 mg/dL 7-18 [facility] Squamous epithelial cells de tection in urine sediment by light microscopyOrdered By: South Gutiérrez on 11-10-2023 Epithelial cells.squamous LM Ql (Urine sed) 0 SEEN /hpf 5-10 [facility] Thin prep Papanicolaou smear with manual screeningOrdered By: South Gutiérrez on 11-10-2023 Thin prep Papanicolaou smear with manual screening 13 U/L 15-37 [facility] Thin prep Papanicolaou smear with manual screening 10 5-15 [facility] Urine blood detectionOrdered By: South Gutiérrez on 11-10-2023 RBC Ql (U) 150 /ul Negative [facility] RBC Ql (U) 0 SEEN /hpf 0-5 [facility] Urine clarityOrdered By: Ismael Gutiérrez on 11-10-2023 Clarity (U) Cloudy Clear [facility] Urine color determinationOrd ered By: South Gutiérrez on 11-10-2023 Color (U) Yellow Yellow [facility] Urine glucose detectionOrder ed By: South Gutiérrez on 11-10-2023 Glucose Ql (U) Normal mg/dl Normal [facility] Urine leukocyte esterase det ection by dipstickOrdered By: South Gutiérrez on 11-10-2023 Leukocyte esterase Test strip Ql (U) 500 /ul Negative [facility] Urine pHOrdered By: South kuhn on 11-10-2023 pH (U) 6.5 [pH] 5.0 - 8.0 [facility] Urine sediment bacteria coun t by microscopy (number/high power field)Ordered By: South Gutiérrez on 11-10-2023 Bacteria LM.HPF (Urine sed) [#/Area] 0 /[HPF] None Seen [facility] Urine specific gravity measu rementOrdered By: South Gutiérrez on 11-10-2023 Specific gravity (U) [Rel density] 1.010 1.002-1.03 0 [facility] Urobilinogen Auto test strip Ql (U)Ordered By: South Gutiérrez on 11-10-2023 Urobilinogen Ql (U) Normal mg/dl Normal [facility] Absolute lymphocyte countOrd ered By: Rafa Glynn on 11-06-2023 Lymphocytes Auto (Unsp spec) [#/Vol] 4.08 10*3/uL 0.83-4.51 [facility] Bacteria identified Cx Nom ( U)Ordered By: Rafa Glynn on 11-06-2023 Culture, urine Mixed Gram Pos & Gra m Neg Org [facility] Basophil percentageOrdered B y: Rafa Glynn on 11-06-2023 Basophil percentage 101 mg/dL 74-106 [facility] Basophil percentage 139 mmol/L 136-145 [facility] Basophil percentage 3.3 mmol/L 3.5-5.1 [facility] Basophil percentage 106 mmol/L 98-107 [facility] Basophils (Bld) [#/Vol] 16.0 10*3/uL 4.4-11.0 [facility] Basophils (Bld) [#/Vol] 10.7 10*3/uL 2.0-7.7 [facility] Basophils/100 WBC (Bld) 66.6 % 47-70 [facility] Basophils/100 WBC (Bld) 0.6 % 0-5 [facility] Basophils/100 WBC (Bld) 0.4 % 0-1 [facility] Chloride [Moles/Vol] 106 mmol/L 98-107 [facility] Eosinophils/100 WBC (Bld) 0.6 % 0-5 [facility] Glucose [Mass/Vol] 101 mg/dL 74-106 [facility] Comment on above: Fasting Glucose resu lt from 100 to 125 mg/dL suggests IMPAIRED HOMEOSTASIS per A.D.A. criteria. Neutrophils (Bld) [#/Vol] 10.7 10*3/uL 2.0-7.7 [facility] Neutrophils/100 WBC (Bld) 66.6 % 47-70 [facility] Potassium [Moles/Vol] 3.3 mmol/L 3.5-5.1 [facility] Sodium [Moles/Vol] 139 mmol/L 136-145 [facility] WBC (Bld) [#/Vol] 16.0 10*3/uL 4.4-11.0 [facility] Basophil percentage 25-50 SEEN /hpf 0-5 [facility] Bilirubin Test strip Ql (U)O rdered By: Rafa Glynn on 11-06-2023 Bilirubin Ql (U) Negative Negative [facility] Blood erythrocytes count (nu mber/volume)Ordered By: Rafa Glynn on 11-06-2023 RBC (Bld) [#/Vol] 3.78 10*6/uL 4.2-5.4 [facility] Blood hemoglobin measurement (mass/volume)Ordered By: Rafa Glynn on 11-06-2023 Hemoglobin (Bld) [Mass/Vol] 11.6 g/dL 12.0-15.0 [facility] Blood lymphocytes/100 leukoc ytesOrdered By: Rafa Glynn on 11-06-2023 Lymphocytes/100 WBC (Bld) 25.5 % 19-41 [facility] Blood monocytes/100 leukocyt esOrdered By: Rafa Glynn on 11-06-2023 Monocytes/100 WBC (Bld) 6.2 % 0-10 [facility] Blood platelet mean volumeOr dered By: Rafa Glynn on 11-06-2023 Platelet mean volume (Bld) [Entitic vol] 9.9 fL 6.2-12.0 [facility] Culture, urineOrdered By: Davian Glynn on 11-06-2023 Bacteria identified Cx Nom (U) Mixed Gram Pos & Gram Neg Org [facility] Determination of erythrocyte mean corpuscular volume (MCV)Ordered By: Rafa Glynn on 11-06-2023 MCV (RBC) [Entitic vol] 98.7 fL 81-99 [facility] Hematocrit Auto (Bld) [Volum e fraction]Ordered By: Rafa Glynn on 11-06-2023 Hematocrit (Bld) [Volume fraction] 37.3 % 37-47 [facility] Ketones Test strip Ql (U)Ord ered By: Rafa Glynn on 11-06-2023 Ketones Ql (U) Negative Negative [facility] Laboratory - Chemistry and C hemistry - challengeOrdered By: Rafa Glynn on 11-06-2023 CO2 [Moles/Vol] 24.0 mmol/L 21.0-32.0 [facility] Urea nitrogen/Creatinine [Mass ratio] 7.4 mg/mg 10-20 [facility] Laboratory - Hematology and Cell countsOrdered By: Rafa Glynn on 11-06-2023 Erythrocyte distribution width (RBC) [Entitic vol] 54.0 fL 35.1-43.9 [facility] Erythrocyte distribution width (RBC) [Ratio] 15.1 % 11.6-14.6 [facility] Immature granulocytes/100 WBC (Bld) 0.700 % 0.0-0.9 [facility] Comment on above: IG% - Immature Granu locytes (promyelocytes, myelocytes and metamyelocytes) > 1% indicates that a LEFT SHIFT is Present. MCH (RBC) [Entitic mass] 30.7 pg 27.0-32.0 [facility] Nucleated RBC/100 WBC (Bld) [Ratio] 0 % 0-5 [facility] MCHC Auto (RBC) [Mass/Vol]Or dered By: Rafa Glynn on 11-06-2023 MCHC (RBC) [Mass/Vol] 31.1 g/dL 32-36 [facility] Mucus LM Ql (Urine sed)Order ed By: Rafa Glynn on 11-06-2023 Mucus Ql (Urine sed) 0 SEEN /hpf [facility] Nitrite Test strip Ql (U)Ord ered By: Rafa Glynn on 11-06-2023 Nitrite Ql (U) Positive Negative [facility] No Panel InformationOrdered By: Rafa Glynn on 11-06-2023 Estimated GFR (MDRD) Amer 24 mL/min >60 [facility] Comment on above: GFR Calc Estimated GFR (MDRD) Non-Af Amer 19 mL/min >60 [facility] Comment on above: Non- GFR Calc 30.7 pg 27.0-32.0 [facility] 15.1 % 11.6-14.6 [facility] 54.0 fl 35.1-43.9 [facility] 0.700 % 0.0-0.9 [facility] 0 % 0-5 [facility] 19 mL/min >60 [facility] 24 mL/min >60 [facility] 7.4 RATIO 10-20 [facility] 24.0 mmol/L 21.0-32.0 [facility] Platelets bldOrdered By: Radha Glynn on 11-06-2023 Platelets (Bld) [#/Vol] 330 10*3/uL 150-450 [facility] Protein Test strip Ql (U)Ord ered By: Rafa Glynn on 11-06-2023 Protein Ql (U) 100 mg/dl Negative [facility] Serum or plasma calcium yunior urement (mass/volume)Ordered By: Rafa Glynn on 11-06-2023 Calcium [Mass/Vol] 7.3 mg/dL 8.5-10.1 [facility] Serum or plasma creatinine m easurement (mass/volume)Ordered By: Rafa Glynn on 11-06-2023 Creatinine [Mass/Vol] 2.58 mg/dL 0.55-1.02 [facility] [facility] Comment on above: The validity of the calculated GFR & GFRAA in patients over 70 years has not been determined. Clinical correlation is essential. Serum or plasma urea nitroge n measurement (mass/volume)Ordered By: Rafa Glynn on 11-06-2023 Urea nitrogen [Mass/Vol] 19 mg/dL 7-18 [facility] Squamous epithelial cells de tection in urine sediment by light microscopyOrdered By: Rafa Glynn on 11-06-2023 Epithelial cells.squamous LM Ql (Urine sed) 0-5 SEEN /hpf 5-10 [facility] Thin prep Papanicolaou smear with manual screeningOrdered By: Rafa Glynn on 11-06-2023 Thin prep Papanicolaou smear with manual screening 9 5-15 [facility] Urine blood detectionOrdered By: Rafa Glynn on 11-06-2023 RBC Ql (U) 250 /ul Negative [facility] RBC Ql (U) 25-50 SEEN /hpf 0-5 [facility] Urine clarityOrdered By: Radha Glynn on 11-06-2023 Clarity (U) Sl. Cloudy Clear [facility] Urine color determinationOrd ered By: Raaf Glynn on 11-06-2023 Color (U) Yellow Yellow [facility] Urine glucose detectionOrder ed By: Rafa Glynn on 11-06-2023 Glucose Ql (U) Normal mg/dl Normal [facility] Urine leukocyte esterase det ection by dipstickOrdered By: Rafa Glynn on 11-06-2023 Leukocyte esterase Test strip Ql (U) 500 /ul Negative [facility] Urine pHOrdered By: Rafa garcia on 11-06-2023 pH (U) 6.5 [pH] 5.0 - 8.0 [facility] Urine sediment bacteria coun t by microscopy (number/high power field)Ordered By: Rafa Glnyn on 11-06-2023 Bacteria LM.HPF (Urine sed) [#/Area] 2 /[HPF] None Seen [facility] Urine specific gravity measu rementOrdered By: Rafa Glynn on 11-06-2023 Specific gravity (U) [Rel density] 1.010 1.002-1.03 0 [facility] Urobilinogen Auto test strip Ql (U)Ordered By: Rafa Glynn on 11-06-2023 Urobilinogen Ql (U) Normal mg/dl Normal [facility] Basophil percentageOrdered B y: Gerardo García on 10-30-2023 Basophil percentage 155 mg/dL <200 [facility] Basophil percentage 124 mg/dL <199 [facility] Cholesterol [Mass/Vol] 155 mg/dL <200 [facility] Comment on above: <200 mg/dL Desirable 200-240 mg/dL Borderline >240 mg/dL High Risk Triglyceride [Mass/Vol] 124 mg/dL <199 [facility] Comment on above: The drugs N-Acetylcy steine and Metamizole may falsely depress this assay.Serum Triglycerides Reference Interval Normal <150 mg/dL Borderline high 150 - 199 mg/dL High 200 - 499 mg/dL Very High > or = 500 mg/dL No Panel InformationOrdered By: Gerardo García on 10-30-2023 Thyroid Stimulating Hormone (TSH) 2.78 uIU/mL 0.358-3.74 [facility] 2.78 uIU/mL 0.358-3.74 [facility] Serum or plasma cholesterol in HDL measurement (mass/volume)Ordered By: Gerardo García on 10-30-2023 Cholesterol in HDL [Mass/Vol] 36 mg/dL >40 [facility] Comment on above: The drugs N-Acetylcy steine and Metamizole may falsely depress this assay. Reference Range HDL <40 mg/dL Low HDL Cholesterol HDL >or= 60 mg/dL High HDL Cholesterol Serum or plasma cholesterol in VLDL measurement (mass/volume)Ordered By: Gerardo García on 10-30-2023 Cholesterol in VLDL [Mass/Vol] 25 mg/dL 5-40 [facility] Serum or plasma low density lipoprotein (LDL) cholesterol measurement (mass/volume)Ordered By: Gerardo García on 10-30-2023 Cholesterol in LDL [Mass/Vol] 94 mg/dL 0-130 [facility] Absolute lymphocyte countOrd ered By: Luz Maria Matthews on 10-23-2023 Lymphocytes Auto (Unsp spec) [#/Vol] 6.51 10*3/uL 0.83-4.51 [facility] Basophil percentageOrdered B y: Luz Maria Matthews on 10-23-2023 Basophil percentage 104 mg/dL 74-106 [facility] Basophil percentage 3.5 mg/dL 2.5-4.9 [facility] Basophil percentage 138 mmol/L 136-145 [facility] Basophil percentage 3.0 mmol/L 3.5-5.1 [facility] Basophil percentage 106 mmol/L 98-107 [facility] Basophils (Bld) [#/Vol] 16.5 10*3/uL 4.4-11.0 [facility] Basophils (Bld) [#/Vol] 8.7 10*3/uL 2.0-7.7 [facility] Basophils/100 WBC (Bld) 52.4 % 47-70 [facility] Basophils/100 WBC (Bld) 0.7 % 0-5 [facility] Basophils/100 WBC (Bld) 0.5 % 0-1 [facility] Chloride [Moles/Vol] 106 mmol/L 98-107 [facility] Eosinophils/100 WBC (Bld) 0.7 % 0-5 [facility] Glucose [Mass/Vol] 104 mg/dL 74-106 [facility] Comment on above: Fasting Glucose resu lt from 100 to 125 mg/dL suggests IMPAIRED HOMEOSTASIS per A.D.A. criteria. Neutrophils (Bld) [#/Vol] 8.7 10*3/uL 2.0-7.7 [facility] Neutrophils/100 WBC (Bld) 52.4 % 47-70 [facility] Potassium [Moles/Vol] 3.0 mmol/L 3.5-5.1 [facility] Comment on above: Slight Hemolysis, Re sult may be falsely increased. Sodium [Moles/Vol] 138 mmol/L 136-145 [facility] WBC (Bld) [#/Vol] 16.5 10*3/uL 4.4-11.0 [facility] Blood erythrocytes count (nu mber/volume)Ordered By: Luz Maria Matthews on 10-23-2023 RBC (Bld) [#/Vol] 3.78 10*6/uL 4.2-5.4 [facility] Blood hemoglobin measurement (mass/volume)Ordered By: Luz Maria Matthews on 10-23-2023 Hemoglobin (Bld) [Mass/Vol] 11.8 g/dL 12.0-15.0 [facility] Blood lymphocytes/100 leukoc ytesOrdered By: Luz Maria Matthews on 10-23-2023 Lymphocytes/100 WBC (Bld) 39.4 % 19-41 [facility] Blood manual differential co mment interpretation (narrative result)Ordered By: Luz Maria Matthews on 10-23-2023 Manual differential comment Pollo (Bld) [Interp] SCANNED [facility] Comment on above: LYMPHOCYTOSIS NOTED Blood monocytes/100 leukocyt esOrdered By: Luz Maria Matthews on 10-23-2023 Monocytes/100 WBC (Bld) 6.3 % 0-10 [facility] Blood platelet mean volumeOr dered By: Luz Maria Matthews on 10-23-2023 Platelet mean volume (Bld) [Entitic vol] 11.1 fL 6.2-12.0 [facility] Determination of erythrocyte mean corpuscular volume (MCV)Ordered By: Luz Maria Matthews on 10-23-2023 MCV (RBC) [Entitic vol] 98.1 fL 81-99 [facility] Hematocrit Auto (Bld) [Volum e fraction]Ordered By: Luz Maria Matthews on 10-23-2023 Hematocrit (Bld) [Volume fraction] 37.1 % 37-47 [facility] Laboratory - Chemistry and C hemistry - challengeOrdered By: Luz Maria Matthews on 10-23-2023 CO2 [Moles/Vol] 22.0 mmol/L 21.0-32.0 [facility] Urea nitrogen/Creatinine [Mass ratio] 7.6 mg/mg 10-20 [facility] Laboratory - Hematology and Cell countsOrdered By: Luz Maria Matthews on 10-23-2023 Erythrocyte distribution width (RBC) [Entitic vol] 54.8 fL 35.1-43.9 [facility] Erythrocyte distribution width (RBC) [Ratio] 15.1 % 11.6-14.6 [facility] Immature granulocytes/100 WBC (Bld) 0.700 % 0.0-0.9 [facility] Comment on above: IG% - Immature Granu locytes (promyelocytes, myelocytes and metamyelocytes) > 1% indicates that a LEFT SHIFT is Present. MCH (RBC) [Entitic mass] 31.2 pg 27.0-32.0 [facility] Nucleated RBC/100 WBC (Bld) [Ratio] 0 % 0-5 [facility] MCHC Auto (RBC) [Mass/Vol]Or dered By: Luz Maria Matthews on 10-23-2023 MCHC (RBC) [Mass/Vol] 31.8 g/dL 32-36 [facility] No Panel InformationOrdered By: Luz Maria Matthews on 10-23-2023 Estimated GFR (MDRD) Amer 35 mL/min >60 [facility] Comment on above: GFR Calc Estimated GFR (MDRD) Non-Af Amer 29 mL/min >60 [facility] Comment on above: Non- GFR Calc Parathyroid Hormone (Intact) 108.4 pg/mL 18.4-80.1 [facility] Vitamin D 25-Hydroxy 60.2 ng/mL [facility] Comment on above: Vitamin D 25(OH) Sta tus Range Deficiency <20 ng/mL (50nmol/L) Insufficiency 20 - 30 ng/mL (50 - 75 nmol/L) Sufficiency 30 - 100 ng/mL (75 - 250 nmol/L) Toxicity >100 ng/mL (>250 nmol/L) 31.2 pg 27.0-32.0 [facility] 15.1 % 11.6-14.6 [facility] 54.8 fl 35.1-43.9 [facility] 0.700 % 0.0-0.9 [facility] 0 % 0-5 [facility] 29 mL/min >60 [facility] 35 mL/min >60 [facility] 7.6 RATIO 10-20 [facility] 22.0 mmol/L 21.0-32.0 [facility] 60.2 ng/mL [facility] 108.4 pg/mL 18.4-80.1 [facility] Platelets bldOrdered By: Emmanuel Matthews on 10-23-2023 Platelets (Bld) [#/Vol] 479 10*3/uL 150-450 [facility] Serum or plasma albumin yunior urement (mass/volume)Ordered By: Luz Maria Matthews on 10-23-2023 Albumin [Mass/Vol] 2.4 g/dL 3.2-5.0 [facility] Serum or plasma calcium yunior urement (mass/volume)Ordered By: Luz Maria Matthews on 10-23-2023 Calcium [Mass/Vol] 7.9 mg/dL 8.5-10.1 [facility] Serum or plasma creatinine m easurement (mass/volume)Ordered By: Luz Maria Matthews on 10-23-2023 Creatinine [Mass/Vol] 1.84 mg/dL 0.55-1.02 [facility] Comment on above: The validity of the calculated GFR & GFRAA in patients over 70 years has not been determined. Clinical correlation is essential. Serum or plasma urea nitroge n measurement (mass/volume)Ordered By: Luz Maria Matthews on 10-23-2023 Urea nitrogen [Mass/Vol] 14 mg/dL 7-18 [facility] Absolute lymphocyte countOrd ered By: Carlene Bower on 10-09-2023 Lymphocytes Auto (Unsp spec) [#/Vol] 4.11 10*3/uL 0.83-4.51 [facility] Bacteria identified Cx Nom ( U)Ordered By: Carlene Bower on 10-09-2023 Culture, urine Mixed Gram Pos & Gra m Neg Org [facility] Basophil percentageOrdered B y: Carlene Bower on 10-09-2023 Basophil percentage >100 SEEN /hpf 0-5 [facility] Basophil percentage 1.3 mmol/L 0.4-2.0 [facility] Basophil percentage 115 mg/dL 74-106 [facility] Basophil percentage 8.3 g/dL 6.4-8.2 [facility] Basophil percentage 0.30 mg/dL 0.20-1.00 [facility] Basophil percentage 136 mmol/L 136-145 [facility] Basophil percentage 4.3 mmol/L 3.5-5.1 [facility] Basophil percentage 106 mmol/L 98-107 [facility] Basophils (Bld) [#/Vol] 15.5 10*3/uL 4.4-11.0 [facility] Basophils (Bld) [#/Vol] 10.0 10*3/uL 2.0-7.7 [facility] Basophils/100 WBC (Bld) 64.5 % 47-70 [facility] Basophils/100 WBC (Bld) 1.0 % 0-5 [facility] Basophils/100 WBC (Bld) 0.6 % 0-1 [facility] Bilirubin Test strip Ql (U)O rdered By: Carlene Bower on 10-09-2023 Bilirubin Ql (U) Negative Negative [facility] Blood erythrocytes count (nu mber/volume)Ordered By: Carlene Bower on 10-09-2023 RBC (Bld) [#/Vol] 3.76 10*6/uL 4.2-5.4 [facility] Blood hemoglobin measurement (mass/volume)Ordered By: Carlene Bower on 10-09-2023 Hemoglobin (Bld) [Mass/Vol] 11.6 g/dL 12.0-15.0 [facility] Blood lymphocytes/100 leukoc ytesOrdered By: Carlene Bower on 10-09-2023 Lymphocytes/100 WBC (Bld) 26.5 % 19-41 [facility] Blood monocytes/100 leukocyt esOrdered By: Carlene Bower on 10-09-2023 Monocytes/100 WBC (Bld) 5.7 % 0-10 [facility] Blood platelet mean volumeOr dered By: Carlene Bower on 10-09-2023 Platelet mean volume (Bld) [Entitic vol] 10.1 fL 6.2-12.0 [facility] Determination of erythrocyte mean corpuscular volume (MCV)Ordered By: Carlene Bower on 10-09-2023 MCV (RBC) [Entitic vol] 96.3 fL 81-99 [facility] Direct bilirubinOrdered By: Carlene Bower on 10-09-2023 Bilirubin.direct [Mass/Vol] 0.14 mg/dL 0.00-0.30 [facility] Hematocrit Auto (Bld) [Volum e fraction]Ordered By: Carlene Bower on 10-09-2023 Hematocrit (Bld) [Volume fraction] 36.2 % 37-47 [facility] Ketones Test strip Ql (U)Ord ered By: Carlene Bower on 10-09-2023 Ketones Ql (U) Negative Negative [facility] MCHC Auto (RBC) [Mass/Vol]Or dered By: Carlene Bower on 10-09-2023 MCHC (RBC) [Mass/Vol] 32.0 g/dL 32-36 [facility] Mucus LM Ql (Urine sed)Order ed By: Carlene Bower on 10-09-2023 Mucus Ql (Urine sed) 0 SEEN /hpf [facility] Nitrite Test strip Ql (U)Ord ered By: Carlene Bower on 10-09-2023 Nitrite Ql (U) Negative Negative [facility] No Panel InformationOrdered By: Carlene Bower on 10-09-2023 30.9 pg 27.0-32.0 [facility] 14.6 % 11.6-14.6 [facility] 51.8 fl 35.1-43.9 [facility] 1.700 % 0.0-0.9 [facility] 0 % 0-5 [facility] 10 mL/min >60 [facility] 12 mL/min >60 [facility] 9.3 RATIO 10-20 [facility] 6.3 g/dL 2.2-4.2 [facility] 92 U/L 45-117 [facility] 20 U/L 13-56 [facility] 22.0 mmol/L 21.0-32.0 [facility] No growth in 5 days. [facility] Platelets bldOrdered By: Eileen Bower on 10-09-2023 Platelets (Bld) [#/Vol] 461 10*3/uL 150-450 [facility] Protein Test strip Ql (U)Ord ered By: Carlene Bower on 10-09-2023 Protein Ql (U) 100 mg/dl Negative [facility] Serum or plasma albumin yunior urement (mass/volume)Ordered By: Carlene Bower on 10-09-2023 Albumin [Mass/Vol] 2.0 g/dL 3.2-5.0 [facility] Serum or plasma calcium yunior urement (mass/volume)Ordered By: Carlene Bower on 10-09-2023 Calcium [Mass/Vol] 8.0 mg/dL 8.5-10.1 [facility] Serum or plasma creatinine m easurement (mass/volume)Ordered By: Carlene Bower on 10-09-2023 Creatinine [Mass/Vol] 4.72 mg/dL 0.55-1.02 [facility] Serum or plasma urea nitroge n measurement (mass/volume)Ordered By: Carlene Bower on 10-09-2023 Urea nitrogen [Mass/Vol] 44 mg/dL 7-18 [facility] Squamous epithelial cells de tection in urine sediment by light microscopyOrdered By: Carlene Bower on 10-09-2023 Epithelial cells.squamous LM Ql (Urine sed) 0-5 SEEN /hpf 5-10 [facility] Thin prep Papanicolaou smear with manual screeningOrdered By: Carlene Bower on 10-09-2023 Thin prep Papanicolaou smear with manual screening 20 U/L 15-37 [facility] Thin prep Papanicolaou smear with manual screening 8 5-15 [facility] Urine blood detectionOrdered By: Carlene Bower on 10-09-2023 RBC Ql (U) 250 /ul Negative [facility] RBC Ql (U) 5-10 SEEN /hpf 0-5 [facility] Urine clarityOrdered By: Eileen Bower on 10-09-2023 Clarity (U) Cloudy Clear [facility] Urine color determinationOrd ered By: Carlene Bower on 10-09-2023 Color (U) Yellow Yellow [facility] Urine glucose detectionOrder ed By: Carlene Bower on 10-09-2023 Glucose Ql (U) Normal mg/dl Normal [facility] Urine leukocyte esterase det ection by dipstickOrdered By: Carlene Bower on 10-09-2023 Leukocyte esterase Test strip Ql (U) 500 /ul Negative [facility] Urine pHOrdered By: Carlene Bower on 10-09-2023 pH (U) 6.0 [pH] 5.0 - 8.0 [facility] Urine sediment bacteria coun t by microscopy (number/high power field)Ordered By: Carlene Bower on 10-09-2023 Bacteria LM.HPF (Urine sed) [#/Area] 2 /[HPF] None Seen [facility] Urine specific gravity measu rementOrdered By: Carlene Bower on 10-09-2023 Specific gravity (U) [Rel density] 1.010 1.002-1.03 0 [facility] Urobilinogen Auto test strip Ql (U)Ordered By: Carlene Bower on 10-09-2023 Urobilinogen Ql (U) Normal mg/dl Normal [facility] Absolute lymphocyte countOrd ered By: Gerardo García on 10-08-2023 Lymphocytes Auto (Unsp spec) [#/Vol] 5.09 10*3/uL 0.83-4.51 [facility] Bacteria identified Cx Nom ( U)Ordered By: Gerardo García on 10-08-2023 Culture, urine Escherichia coli [facility] Basophil percentageOrdered B y: Gerardo García on 10-08-2023 Basophil percentage 134 mg/dL 74-106 [facility] Basophil percentage 133 mmol/L 136-145 [facility] Basophil percentage 4.4 mmol/L 3.5-5.1 [facility] Basophil percentage 106 mmol/L 98-107 [facility] Basophil percentage 1.2 mmol/L 0.4-2.0 [facility] Basophils (Bld) [#/Vol] 20.2 10*3/uL 4.4-11.0 [facility] Basophils (Bld) [#/Vol] 13.4 10*3/uL 2.0-7.7 [facility] Basophils/100 WBC (Bld) 0.4 % 0-1 [facility] Basophils/100 WBC (Bld) 66.6 % 47-70 [facility] Basophils/100 WBC (Bld) 0.6 % 0-5 [facility] Chloride [Moles/Vol] 106 mmol/L 98-107 [facility] Eosinophils/100 WBC (Bld) 0.6 % 0-5 [facility] Glucose [Mass/Vol] 134 mg/dL 74-106 [facility] Comment on above: Fasting Glucose resu lt greater than or equal to 126 mg/dL suggests DIABETES MELLITUS per A.D.A. criteria. Lactate [Moles/Vol] 1.2 mmol/L 0.4-2.0 [facility] Neutrophils (Bld) [#/Vol] 13.4 10*3/uL 2.0-7.7 [facility] Neutrophils/100 WBC (Bld) 66.6 % 47-70 [facility] Potassium [Moles/Vol] 4.4 mmol/L 3.5-5.1 [facility] Sodium [Moles/Vol] 133 mmol/L 136-145 [facility] WBC (Bld) [#/Vol] 20.2 10*3/uL 4.4-11.0 [facility] Blood erythrocytes count (nu mber/volume)Ordered By: Gerardo García on 10-08-2023 RBC (Bld) [#/Vol] 3.94 10*6/uL 4.2-5.4 [facility] Blood hemoglobin measurement (mass/volume)Ordered By: Gerardo García on 10-08-2023 Hemoglobin (Bld) [Mass/Vol] 12.5 g/dL 12.0-15.0 [facility] Blood lymphocytes/100 leukoc ytesOrdered By: Gerardo García on 10-08-2023 Lymphocytes/100 WBC (Bld) 25.2 % 19-41 [facility] Blood manual differential co mment interpretation (narrative result)Ordered By: Gerardo García on 10-08-2023 Manual differential comment Pollo (Bld) [Interp] SCANNED [facility] Comment on above: LYMPHOCYTOSIS NOTED Blood monocytes/100 leukocyt esOrdered By: Gerardo García on 10-08-2023 Monocytes/100 WBC (Bld) 5.6 % 0-10 [facility] Blood platelet mean volumeOr dered By: Gerardo García on 10-08-2023 Platelet mean volume (Bld) [Entitic vol] 9.7 fL 6.2-12.0 [facility] Determination of erythrocyte mean corpuscular volume (MCV)Ordered By: Gerardo García on 10-08-2023 MCV (RBC) [Entitic vol] 96.4 fL 81-99 [facility] Erythrocyte sedimentation ra teOrdered By: Gerardo García on 10-08-2023 ESR (Bld) [Velocity] mm/h 0-30 [facility] Hematocrit Auto (Bld) [Volum e fraction]Ordered By: Gerardo García on 10-08-2023 Hematocrit (Bld) [Volume fraction] 38.0 % 37-47 [facility] Laboratory - Chemistry and C hemistry - challengeOrdered By: Gerardo García on 10-08-2023 CO2 [Moles/Vol] 19.0 mmol/L 21.0-32.0 [facility] Urea nitrogen/Creatinine [Mass ratio] 9.3 mg/mg 10- [facility] Laboratory - Hematology and Cell countsOrdered By: Gerardo García on 10-08-2023 Erythrocyte distribution width (RBC) [Entitic vol] 52.0 fL 35.1-43.9 [facility] Erythrocyte distribution width (RBC) [Ratio] 14.6 % 11.6-14.6 [facility] Immature granulocytes/100 WBC (Bld) 1.600 % 0.0-0.9 [facility] Comment on above: IG% - Immature Granu locytes (promyelocytes, myelocytes and metamyelocytes) > 1% indicates that a LEFT SHIFT is Present. MCH (RBC) [Entitic mass] 31.7 pg 27.0-32.0 [facility] [facility] Nucleated RBC/100 WBC (Bld) [Ratio] 0 % 0-5 [facility] MCHC Auto (RBC) [Mass/Vol]Or dered By: Gerardo García on 10-08-2023 MCHC (RBC) [Mass/Vol] 32.9 g/dL 32-36 [facility] No Panel InformationOrdered By: Gerardo García on 10-08-2023 Estimated GFR (MDRD) Amer 13 mL/min >60 [facility] Comment on above: GFR Calc Estimated GFR (MDRD) Non-Af Amer 11 mL/min >60 [facility] Comment on above: Non- GFR Calc 31.7 pg 27.0-32.0 [facility] 14.6 % 11.6-14.6 [facility] 52.0 fl 35.1-43.9 [facility] 1.600 % 0.0-0.9 [facility] 0 % 0-5 [facility] 11 mL/min >60 [facility] 13 mL/min >60 [facility] 9.3 RATIO 09-07 [facility] 19.0 mmol/L 21.0-32.0 [facility] No growth in 5 days. [facility] Platelets bldOrdered By: Gerardo García on 10-08-2023 Platelets (Bld) [#/Vol] 554 10*3/uL 150-450 [facility] Serum or plasma C reactive p rotein measurement (mass/volume)Ordered By: Gerardo Gracía on 10-08-2023 CRP [Mass/Vol] 312.00 mg/L 0.0-3.0 [facility] Comment on above: C-Reactive Protein ( CRP) provides useful information for thediagnosis, therapy and monitoring of inflammatory processesand associated diseases. For the evaluation of Relative Riskfor Cardiovascular Disease, a High Sensitivity CRP (HSCRP)should be ordered. Serum or plasma calcium yunior urement (mass/volume)Ordered By: Gerardo García on 10-08-2023 Calcium [Mass/Vol] 8.1 mg/dL 8.5-10.1 [facility] Serum or plasma creatinine m easurement (mass/volume)Ordered By: Gerardo García on 10-08-2023 Creatinine [Mass/Vol] 4.41 mg/dL 0.55-1.02 [facility] Comment on above: The validity of the calculated GFR & GFRAA in patients over 70 years has not been determined. Clinical correlation is essential. Serum or plasma urea nitroge n measurement (mass/volume)Ordered By: Gerardo García on 10-08-2023 Urea nitrogen [Mass/Vol] 41 mg/dL 7-18 [facility] Thin prep Papanicolaou smear with manual screeningOrdered By: Gerardo García on 10-08-2023 Thin prep Papanicolaou smear with manual screening 8 5-15 [facility] Absolute lymphocyte countOrd ered By: Gerardo García on 10-05-2023 Lymphocytes Auto (Unsp spec) [#/Vol] 4.77 10*3/uL 0.83-4.51 [facility] Basophil percentageOrdered B y: Gerardo García on 10-05-2023 Basophil percentage 125 mg/dL 74-106 [facility] Basophil percentage 136 mmol/L 136-145 [facility] Basophil percentage 4.4 mmol/L 3.5-5.1 [facility] Basophil percentage 107 mmol/L 98-107 [facility] Basophils (Bld) [#/Vol] 15.4 10*3/uL 4.4-11.0 [facility] Basophils (Bld) [#/Vol] 9.2 10*3/uL 2.0-7.7 [facility] Basophils/100 WBC (Bld) 0.5 % 0-1 [facility] Basophils/100 WBC (Bld) 59.7 % 47-70 [facility] Basophils/100 WBC (Bld) 1.0 % 0-5 [facility] Chloride [Moles/Vol] 107 mmol/L 98-107 [facility] Eosinophils/100 WBC (Bld) 1.0 % 0-5 [facility] Glucose [Mass/Vol] 125 mg/dL 74-106 [facility] Comment on above: Fasting Glucose resu lt from 100 to 125 mg/dL suggests IMPAIRED HOMEOSTASIS per A.D.A. criteria. Neutrophils (Bld) [#/Vol] 9.2 10*3/uL 2.0-7.7 [facility] Neutrophils/100 WBC (Bld) 59.7 % 47-70 [facility] Potassium [Moles/Vol] 4.4 mmol/L 3.5-5.1 [facility] Sodium [Moles/Vol] 136 mmol/L 136-145 [facility] WBC (Bld) [#/Vol] 15.4 10*3/uL 4.4-11.0 [facility] Blood erythrocytes count (nu mber/volume)Ordered By: Gerardo García on 10-05-2023 RBC (Bld) [#/Vol] 4.00 10*6/uL 4.2-5.4 [facility] Blood hemoglobin measurement (mass/volume)Ordered By: Gerardo García on 10-05-2023 Hemoglobin (Bld) [Mass/Vol] 12.6 g/dL 12.0-15.0 [facility] Blood lymphocytes/100 leukoc ytesOrdered By: Gerardo García on 10-05-2023 Lymphocytes/100 WBC (Bld) 31.0 % 19-41 [facility] Blood monocytes/100 leukocyt esOrdered By: Gerardo García on 10-05-2023 Monocytes/100 WBC (Bld) 6.8 % 0-10 [facility] Blood platelet mean volumeOr dered By: Gerardo García on 10-05-2023 Platelet mean volume (Bld) [Entitic vol] 10.0 fL 6.2-12.0 [facility] Determination of erythrocyte mean corpuscular volume (MCV)Ordered By: Gerardo García on 10-05-2023 MCV (RBC) [Entitic vol] 97.0 fL 81-99 [facility] Hematocrit Auto (Bld) [Volum e fraction]Ordered By: Gerardo García on 10-05-2023 Hematocrit (Bld) [Volume fraction] 38.8 % 37-47 [facility] Laboratory - Chemistry and C hemistry - challengeOrdered By: Gerardo Ricky on 10-05-2023 CO2 [Moles/Vol] 22.0 mmol/L 21.0-32.0 [facility] Urea nitrogen/Creatinine [Mass ratio] 9.4 mg/mg 10-20 [facility] Laboratory - Hematology and Cell countsOrdered By: Gerardo García on 10-05-2023 Erythrocyte distribution width (RBC) [Entitic vol] 52.1 fL 35.1-43.9 [facility] Erythrocyte distribution width (RBC) [Ratio] 14.6 % 11.6-14.6 [facility] Immature granulocytes/100 WBC (Bld) 1.000 % 0.0-0.9 [facility] Comment on above: IG% - Immature Granu locytes (promyelocytes, myelocytes and metamyelocytes) > 1% indicates that a LEFT SHIFT is Present. MCH (RBC) [Entitic mass] 31.5 pg 27.0-32.0 [facility] Nucleated RBC/100 WBC (Bld) [Ratio] 0 % 0-5 [facility] MCHC Auto (RBC) [Mass/Vol]Or dered By: Gerardo García on 10-05-2023 MCHC (RBC) [Mass/Vol] 32.5 g/dL 32-36 [facility] No Panel InformationOrdered By: Gerardo García on 10-05-2023 Estimated GFR (MDRD) Amer 18 mL/min >60 [facility] Comment on above: GFR Calc Estimated GFR (MDRD) Non-Af Amer 15 mL/min >60 [facility] Comment on above: Non- GFR Calc 31.5 pg 27.0-32.0 [facility] 14.6 % 11.6-14.6 [facility] 52.1 fl 35.1-43.9 [facility] 1.000 % 0.0-0.9 [facility] 0 % 0-5 [facility] 15 mL/min >60 [facility] 18 mL/min >60 [facility] 9.4 RATIO 10-20 [facility] 22.0 mmol/L 21.0-32.0 [facility] Platelets bldOrdered By: Gerardo García on 10-05-2023 Platelets (Bld) [#/Vol] 564 10*3/uL 150-450 [facility] Serum or plasma calcium yunior urement (mass/volume)Ordered By: Gerardo García on 10-05-2023 Calcium [Mass/Vol] 8.3 mg/dL 8.5-10.1 [facility] Serum or plasma creatinine m easurement (mass/volume)Ordered By: Gerardo García on 10-05-2023 Creatinine [Mass/Vol] 3.19 mg/dL 0.55-1.02 [facility] Comment on above: The validity of the calculated GFR & GFRAA in patients over 70 years has not been determined. Clinical correlation is essential. Serum or plasma urea nitroge n measurement (mass/volume)Ordered By: Gerardo García on 10-05-2023 Urea nitrogen [Mass/Vol] 30 mg/dL 7-18 [facility] Thin prep Papanicolaou smear with manual screeningOrdered By: Gerardo García on 10-05-2023 Thin prep Papanicolaou smear with manual screening 7 5-15 [facility] Absolute lymphocyte countOrd ered By: Kassy Mitchell on 09-25-2023 Lymphocytes Auto (Unsp spec) [#/Vol] 6.81 10*3/uL 0.83-4.51 [facility] Albumin Elph [Mass/Vol]Order ed By: Kassy Mtichell on 09-25-2023 Albumin [Mass/Vol] 2.8 g/dL 2.9-4.4 [facility] Basophil percentageOrdered B y: Kassy Mitchell on 09-25-2023 Basophil percentage 106 mg/dL 74-106 [facility] Basophil percentage 8.3 g/dL 6.4-8.2 [facility] Basophil percentage 0.70 mg/dL 0.20-1.00 [facility] Basophil percentage 134 mmol/L 136-145 [facility] Basophil percentage 4.1 mmol/L 3.5-5.1 [facility] Basophil percentage 103 mmol/L 98-107 [facility] Basophil percentage 223 U/L 84-246 [facility] Basophils (Bld) [#/Vol] 19.2 10*3/uL 4.4-11.0 [facility] Basophils (Bld) [#/Vol] 10.8 10*3/uL 2.0-7.7 [facility] Basophils/100 WBC (Bld) 0.6 % 0-1 [facility] Basophils/100 WBC (Bld) 55.9 % 47-70 [facility] Basophils/100 WBC (Bld) 1.8 % 0-5 [facility] Bilirubin [Mass/Vol] 0.70 mg/dL 0.20-1.00 [facility] Comment on above: For patients on eltr ombopag therapy, use of Dimension [place] TBIL is not recommended. Chloride [Moles/Vol] 103 mmol/L 98-107 [facility] Eosinophils/100 WBC (Bld) 1.8 % 0-5 [facility] Glucose [Mass/Vol] 106 mg/dL 74-106 [facility] Comment on above: Fasting Glucose resu lt from 100 to 125 mg/dL suggests IMPAIRED HOMEOSTASIS per A.D.A. criteria. LDH [Catalytic activity/Vol] 223 U/L 84-246 [facility] Neutrophils (Bld) [#/Vol] 10.8 10*3/uL 2.0-7.7 [facility] Neutrophils/100 WBC (Bld) 55.9 % 47-70 [facility] Potassium [Moles/Vol] 4.1 mmol/L 3.5-5.1 [facility] Protein [Mass/Vol] 8.3 g/dL 6.4-8.2 [facility] Sodium [Moles/Vol] 134 mmol/L 136-145 [facility] WBC (Bld) [#/Vol] 19.2 10*3/uL 4.4-11.0 [facility] Blood erythrocytes count (nu mber/volume)Ordered By: Kassy Mitchell on 09-25-2023 RBC (Bld) [#/Vol] 4.33 10*6/uL 4.2-5.4 [facility] Blood hemoglobin measurement (mass/volume)Ordered By: Kassy Mitchell on 09-25-2023 Hemoglobin (Bld) [Mass/Vol] 13.4 g/dL 12.0-15.0 [facility] Blood lymphocytes/100 leukoc ytesOrdered By: Kassy Mitchell on 09-25-2023 Lymphocytes/100 WBC (Bld) 35.4 % 19-41 [facility] Blood manual differential co mment interpretation (narrative result)Ordered By: Kassy Mitchell on 09-25-2023 Manual differential comment Pollo (Bld) [Interp] COMMENT [facility] Comment on above: LYMPHOCYTOSIS. Blood monocytes/100 leukocyt esOrdered By: Kassy Mitchell on 09-25-2023 Monocytes/100 WBC (Bld) 5.4 % 0-10 [facility] Blood platelet mean volumeOr dered By: Kassy Mitchell on 09-25-2023 Platelet mean volume (Bld) [Entitic vol] 10.1 fL 6.2-12.0 [facility] Determination of erythrocyte mean corpuscular volume (MCV)Ordered By: Kassy Mitchell on 09-25-2023 MCV (RBC) [Entitic vol] 97.5 fL 81-99 [facility] Hematocrit Auto (Bld) [Volum e fraction]Ordered By: Kassy Mitchell on 09-25-2023 Hematocrit (Bld) [Volume fraction] 42.2 % 37-47 [facility] Interpretation of serum or p lasma protein pattern by immunofixation (narrative resultOrdered By: Kassy Mitchell on 09-25-2023 Protein Fractions Immunofixation Pollo [Interp] Not Observed g/dL Not Observed [facility] Laboratory - Chemistry and C hemistry - challengeOrdered By: Kassy Mitchell on 09-25-2023 ALP [Catalytic activity/Vol] 108 U/L 45-117 [facility] ALT [Catalytic activity/Vol] 14 U/L 13-56 [facility] CO2 [Moles/Vol] 23.0 mmol/L 21.0-32.0 [facility] Urea nitrogen/Creatinine [Mass ratio] 7.3 mg/mg 10-20 [facility] Laboratory - Hematology and Cell countsOrdered By: Kassy Mitchell on 09-25-2023 Erythrocyte distribution width (RBC) [Entitic vol] 52.2 fL 35.1-43.9 [facility] Erythrocyte distribution width (RBC) [Ratio] 14.5 % 11.6-14.6 [facility] Immature granulocytes/100 WBC (Bld) 0.900 % 0.0-0.9 [facility] Comment on above: IG% - Immature Granu locytes (promyelocytes, myelocytes and metamyelocytes) > 1% indicates that a LEFT SHIFT is Present. MCH (RBC) [Entitic mass] 30.9 pg 27.0-32.0 [facility] Nucleated RBC/100 WBC (Bld) [Ratio] 0 % 0-5 [facility] MCHC Auto (RBC) [Mass/Vol]Or dered By: Kassy Mitchell on 09-25-2023 MCHC (RBC) [Mass/Vol] 31.8 g/dL 32-36 [facility] No Panel InformationOrdered By: Kassy Mitchell on 09-25-2023 Addendum Document Comment . [facility] Comment on above: Protein electrophore sis scan will follow via computer,mail, or contingents supervisor delivery. Estimated GFR (MDRD) Amer 22 mL/min >60 [facility] Comment on above: GFR Calc Estimated GFR (MDRD) Non-Af Amer 18 mL/min >60 [facility] Comment on above: Non- GFR Calc Free Lambda Light Chains, Quant 126.2 mg/L 5.7-26.3 [facility] 30.9 pg 27.0-32.0 [facility] 14.5 % 11.6-14.6 [facility] 52.2 fl 35.1-43.9 [facility] 0.900 % 0.0-0.9 [facility] 0 % 0-5 [facility] 18 mL/min >60 [facility] 22 mL/min >60 [facility] 7.3 RATIO 10-20 [facility] 108 U/L 45-117 [facility] 14 U/L 13-56 [facility] 23.0 mmol/L 21.0-32.0 [facility] 126.2 mg/L 5.7-26.3 [facility] Platelets bldOrdered By: Jose Angel Mitchell on 09-25-2023 Platelets (Bld) [#/Vol] 517 10*3/uL 150-450 [facility] Serum mnaxy-2-ntegxrzg measu rement by electrophoresisOrdered By: Kassy Mitchell on 09-25-2023 Alpha 1 globulin Elph [Mass/Vol] 0.4 g/dL 0.0-0.4 [facility] Alpha 1 globulin Elph [Mass/Vol] 1.2 g/dL 0.4-1.0 [facility] Serum globulin measurement ( mass/volume)Ordered By: Kassy Mitchell on 09-25-2023 Globulin (S) [Mass/Vol] 4.9 g/dL 2.2-3.9 [facility] Serum immunoglobulin kappa l ight chains/immunoglobulin lambda light chains mass ratioOrdered By: Kassy Mitchell on 09-25-2023 Immunoglobulin light chains.kappa/Immunoglobu rustam light chains.lambda (S) [Mass ratio] 1.58 0.26-1.65 [facility] Comment on above: Performed at: [address] [id number] Director: Gaudencio Alexandre PhD, Phone: [phone] Serum or plasma IgA measurem ent (mass/volume)Ordered By: Kassy Mitchell on 09-25-2023 IgA [Mass/Vol] 1271 mg/dL 64-422 [facility] Comment on above: Results confirmed on dilution. Serum or plasma IgG measurem ent (mass/volume)Ordered By: Kassy Mitchell on 09-25-2023 IgG [Mass/Vol] 1892 mg/dL 586-1602 [facility] Serum or plasma IgM measurem ent (mass/volume)Ordered By: Kassy Mitchell on 09-25-2023 IgM [Mass/Vol] 53 mg/dL 26-217 [facility] Serum or plasma albumin yunior urement (mass/volume)Ordered By: Kassy Mitchell on 09-25-2023 Albumin [Mass/Vol] 2.3 g/dL 3.2-5.0 [facility] Serum or plasma albumin/glob ulin mass ratioOrdered By: Kassy Mitchell on 09-25-2023 Albumin/Globulin [Mass ratio] 0.4 {ratio} 0.9-2.4 [facility] Serum or plasma beta globuli n measurement by electrophoresis (mass/volume)Ordered By: Kassy Mitchell on 09-25-2023 Beta globulin Elph [Mass/Vol] 1.4 g/dL 0.7-1.3 [facility] Serum or plasma calcium yunior urement (mass/volume)Ordered By: Kassy Mitchell on 09-25-2023 Calcium [Mass/Vol] 8.1 mg/dL 8.5-10.1 [facility] Serum or plasma creatinine m easurement (mass/volume)Ordered By: Kassy Mitchell on 09-25-2023 Creatinine [Mass/Vol] 2.75 mg/dL 0.55-1.02 [facility] Comment on above: The validity of the calculated GFR & GFRAA in patients over 70 years has not been determined. Clinical correlation is essential. Serum or plasma gamma globul in measurement by electrophoresis (mass/volume)Ordered By: Kassy Mitchell on 09-25-2023 Gamma globulin Elph [Mass/Vol] 2.0 g/dL 0.4-1.8 [facility] Serum or plasma immunoelectr ophoresis interpretation (nominal result)Ordered By: Kassy Mitchell on 09-25-2023 Interpretation IEP [Interp] Comment . [facility] Comment on above: No monoclonality det ected. Serum or plasma immunoglobul in kappa light chains measurement (mass/volume)Ordered By: Kassy Mitchell on 09-25-2023 Immunoglobulin light chains.kappa [Mass/Vol] 199.9 mg/L 3.3-19.4 [facility] Serum or plasma urea nitroge n measurement (mass/volume)Ordered By: Kassy Mitchell on 09-25-2023 Urea nitrogen [Mass/Vol] 20 mg/dL 7-18 [facility] Thin prep Papanicolaou smear with manual screeningOrdered By: Kassy Mitchell on 09-25-2023 Thin prep Papanicolaou smear with manual screening 17 U/L 15-37 [facility] Thin prep Papanicolaou smear with manual screening 8 5-15 [facility] Thin prep Papanicolaou smear with manual screening 0.6 0.7-1.7 [facility] Total protein bloodOrdered B y: Kassy Mitchell on 09-25-2023 Protein [Mass/Vol] 7.7 g/dL 6.0-8.5 [facility] Absolute lymphocyte countOrd ered By: Alivia Mcrae on 09-22-2023 Lymphocytes Auto (Unsp spec) [#/Vol] 5.10 10*3/uL 0.83-4.51 [facility] Basophil percentageOrdered B y: Alivia Mcrae on 09-22-2023 Basophil percentage 88 mg/dL 74-106 [facility] Basophil percentage 142 mmol/L 136-145 [facility] Basophil percentage 3.3 mmol/L 3.5-5.1 [facility] Basophil percentage 110 mmol/L 98-107 [facility] Basophils (Bld) [#/Vol] 12.6 10*3/uL 4.4-11.0 [facility] Basophils (Bld) [#/Vol] 6.2 10*3/uL 2.0-7.7 [facility] Basophils/100 WBC (Bld) 0.5 % 0-1 [facility] Basophils/100 WBC (Bld) 48.9 % 47-70 [facility] Basophils/100 WBC (Bld) 2.0 % 0-5 [facility] Chloride [Moles/Vol] 110 mmol/L 98-107 [facility] Eosinophils/100 WBC (Bld) 2.0 % 0-5 [facility] Glucose [Mass/Vol] 88 mg/dL 74-106 [facility] Neutrophils (Bld) [#/Vol] 6.2 10*3/uL 2.0-7.7 [facility] Neutrophils/100 WBC (Bld) 48.9 % 47-70 [facility] Potassium [Moles/Vol] 3.3 mmol/L 3.5-5.1 [facility] Sodium [Moles/Vol] 142 mmol/L 136-145 [facility] WBC (Bld) [#/Vol] 12.6 10*3/uL 4.4-11.0 [facility] Blood erythrocytes count (nu mber/volume)Ordered By: Alivia Mcrae on 09-22-2023 RBC (Bld) [#/Vol] 3.85 10*6/uL 4.2-5.4 [facility] Blood hemoglobin measurement (mass/volume)Ordered By: Alivia Mcrae on 09-22-2023 Hemoglobin (Bld) [Mass/Vol] 12.1 g/dL 12.0-15.0 [facility] Blood lymphocytes/100 leukoc ytesOrdered By: Alivia Mcrae on 09-22-2023 Lymphocytes/100 WBC (Bld) 40.4 % 19-41 [facility] Blood manual differential co mment interpretation (narrative result)Ordered By: Alivia Mcrae on 09-22-2023 Manual differential comment Pollo (Bld) [Interp] SCANNED [facility] Blood monocytes/100 leukocyt esOrdered By: Alivia Mcrae on 09-22-2023 Monocytes/100 WBC (Bld) 7.5 % 0-10 [facility] Blood platelet mean volumeOr dered By: Alivia Mcrae on 09-22-2023 Platelet mean volume (Bld) [Entitic vol] 10.6 fL 6.2-12.0 [facility] Determination of erythrocyte mean corpuscular volume (MCV)Ordered By: Alivia Mcrae on 09-22-2023 MCV (RBC) [Entitic vol] 97.9 fL 81-99 [facility] Hematocrit Auto (Bld) [Volum e fraction]Ordered By: Alivia Mcrae on 09-22-2023 Hematocrit (Bld) [Volume fraction] 37.7 % 37-47 [facility] Laboratory - Chemistry and C hemistry - challengeOrdered By: Alivia Mcrae on 09-22-2023 CO2 [Moles/Vol] 23.0 mmol/L 21.0-32.0 [facility] [facility] Urea nitrogen/Creatinine [Mass ratio] 8.3 mg/mg 10-20 [facility] Laboratory - Hematology and Cell countsOrdered By: Alivia Mcrae on 09-22-2023 Erythrocyte distribution width (RBC) [Entitic vol] 52.6 fL 35.1-43.9 [facility] Erythrocyte distribution width (RBC) [Ratio] 14.6 % 11.6-14.6 [facility] Immature granulocytes/100 WBC (Bld) 0.700 % 0.0-0.9 [facility] Comment on above: IG% - Immature Granu locytes (promyelocytes, myelocytes and metamyelocytes) > 1% indicates that a LEFT SHIFT is Present. MCH (RBC) [Entitic mass] 31.4 pg 27.0-32.0 [facility] Nucleated RBC/100 WBC (Bld) [Ratio] 0 % 0-5 [facility] MCHC Auto (RBC) [Mass/Vol]Or dered By: Alivia Mcrae on 09-22-2023 MCHC (RBC) [Mass/Vol] 32.1 g/dL 32-36 [facility] No Panel InformationOrdered By: Alivia Mcrae on 09-22-2023 Estimated Creatinine Clearance Calc 25.39 ml/min [facility] Estimated GFR (MDRD) Amer 31 mL/min >60 [facility] Comment on above: GFR Calc Estimated GFR (MDRD) Non-Af Amer 25 mL/min >60 [facility] Comment on above: Non- GFR Calc 31.4 pg 27.0-32.0 [facility] 14.6 % 11.6-14.6 [facility] 52.6 fl 35.1-43.9 [facility] 0.700 % 0.0-0.9 [facility] 0 % 0-5 [facility] 25 mL/min >60 [facility] 31 mL/min >60 [facility] 25.39 ml/min [facility] 8.3 RATIO 10-20 [facility] 23.0 mmol/L 21.0-32.0 [facility] Platelets bldOrdered By: Mariya Mcrae on 09-22-2023 Platelets (Bld) [#/Vol] 364 10*3/uL 150-450 [facility] Serum or plasma calcium yunior urement (mass/volume)Ordered By: Alivia Mcrae on 09-22-2023 Calcium [Mass/Vol] 8.1 mg/dL 8.5-10.1 [facility] Serum or plasma creatinine m easurement (mass/volume)Ordered By: Alivia Mcrae on 09-22-2023 Creatinine [Mass/Vol] 2.05 mg/dL 0.55-1.02 [facility] Comment on above: The validity of the calculated GFR & GFRAA in patients over 70 years has not been determined. Clinical correlation is essential. Serum or plasma urea nitroge n measurement (mass/volume)Ordered By: Alivia Mcrae on 09-22-2023 Urea nitrogen [Mass/Vol] 17 mg/dL 7-18 [facility] Thin prep Papanicolaou smear with manual screeningOrdered By: Alivia Mcrae on 09-22-2023 Thin prep Papanicolaou smear with manual screening 9 5-15 [facility] Basophil percentageOrdered B y: Andres Fraser on 09-20-2023 Basophil percentage 3.9 mg/dL 2.5-4.9 [facility] Absolute lymphocyte countOrd ered By: Altaf Villa on 09-19-2023 Lymphocytes Auto (Unsp spec) [#/Vol] 6.02 10*3/uL 0.83-4.51 [facility] Bacteria identified Cx Nom ( U)Ordered By: Altafclaudia Villa on 09-19-2023 Culture, urine Klebsiella pneumonia e sp pneum [facility] Basophil percentageOrdered B y: Altafclaudia Villa on 09-19-2023 Basophil percentage >100 SEEN /hpf 0-5 [facility] Comment on above: Microscopic field is filled. Other elements may be obscured. Basophils/100 WBC (Bld) 0.4 % 0-1 [facility] Chloride [Moles/Vol] 104 mmol/L 98-107 [facility] Eosinophils/100 WBC (Bld) 0.3 % 0-5 [facility] Glucose [Mass/Vol] 98 mg/dL 74-106 [facility] Neutrophils (Bld) [#/Vol] 13.4 10*3/uL 2.0-7.7 [facility] Neutrophils/100 WBC (Bld) 64.2 % 47-70 [facility] Potassium [Moles/Vol] 4.1 mmol/L 3.5-5.1 [facility] Sodium [Moles/Vol] 134 mmol/L 136-145 [facility] WBC (Bld) [#/Vol] 20.8 10*3/uL 4.4-11.0 [facility] Bilirubin Test strip Ql (U)O rdered By: Altaf Villa on 09-19-2023 Bilirubin Ql (U) Negative Negative [facility] Blood erythrocytes count (nu mber/volume)Ordered By: Altaf Villa on 09-19-2023 RBC (Bld) [#/Vol] 4.54 10*6/uL 4.2-5.4 [facility] Blood hemoglobin measurement (mass/volume)Ordered By: Altaf Villa on 09-19-2023 Hemoglobin (Bld) [Mass/Vol] 14.3 g/dL 12.0-15.0 [facility] Blood lymphocytes/100 leukoc ytesOrdered By: Altaf Villa on 09-19-2023 Lymphocytes/100 WBC (Bld) 28.9 % 19-41 [facility] Blood manual differential co mment interpretation (narrative result)Ordered By: Altaf Villa on 09-19-2023 Manual differential comment Pollo (Bld) [Interp] SCANNED [facility] Blood monocytes/100 leukocyt esOrdered By: Altaf Villa on 09-19-2023 Monocytes/100 WBC (Bld) 5.5 % 0-10 [facility] Blood platelet mean volumeOr dered By: Altaf Villa on 09-19-2023 Platelet mean volume (Bld) [Entitic vol] 10.2 fL 6.2-12.0 [facility] Clostridium difficile detect ion by polymerase chain reactionOrdered By: Altaf Villa on 09-19-2023 C. difficile DNA BOBBI+probe Ql (Unsp spec) [facility] C. difficile DNA BOBBI+probe Ql (Unsp spec) [facility] Culture, urineOrdered By: Eric Villa on 09-19-2023 Bacteria identified Cx Nom (U) Klebsiella pneumoniae sp pneum [facility] Bacteria identified Cx Nom (U) Klebsiella pneumoniae sp pneum [facility] Determination of erythrocyte mean corpuscular volume (MCV)Ordered By: Altaf Villa on 09-19-2023 MCV (RBC) [Entitic vol] 96.3 fL 81-99 [facility] Hematocrit Auto (Bld) [Volum e fraction]Ordered By: Altaf Villa on 09-19-2023 Hematocrit (Bld) [Volume fraction] 43.7 % 37-47 [facility] Ketones Test strip Ql (U)Ord ered By: Altaf Villa on 09-19-2023 Ketones Ql (U) Negative Negative [facility] Laboratory - Chemistry and C hemistry - challengeOrdered By: Altaf Villa on 09-19-2023 CO2 [Moles/Vol] 20.0 mmol/L 21.0-32.0 [facility] Urea nitrogen/Creatinine [Mass ratio] 8.0 mg/mg 10-20 [facility] Laboratory - Hematology and Cell countsOrdered By: Altaf Villa on 09-19-2023 Erythrocyte distribution width (RBC) [Entitic vol] 51.6 fL 35.1-43.9 [facility] Erythrocyte distribution width (RBC) [Ratio] 14.6 % 11.6-14.6 [facility] Immature granulocytes/100 WBC (Bld) 0.700 % 0.0-0.9 [facility] Comment on above: IG% - Immature Granu locytes (promyelocytes, myelocytes and metamyelocytes) > 1% indicates that a LEFT SHIFT is Present. MCH (RBC) [Entitic mass] 31.5 pg 27.0-32.0 [facility] Nucleated RBC/100 WBC (Bld) [Ratio] 0 % 0-5 [facility] Laboratory - Microbiology an d Antimicrobial susceptibilityOrdered By: Andres Fraser on 09-19-2023 Bacteria identified Cx Nom (Bld) No growth in 5 days. [facility] MCHC Auto (RBC) [Mass/Vol]Or dered By: Altaf Villa on 09-19-2023 MCHC (RBC) [Mass/Vol] 32.7 g/dL 32-36 [facility] Mucus LM Ql (Urine sed)Order ed By: Altaf Villa on 09-19-2023 Mucus Ql (Urine sed) 0 SEEN /hpf [facility] Nitrite Test strip Ql (U)Ord ered By: Altaf Villa on 09-19-2023 Nitrite Ql (U) Positive Negative [facility] No Panel InformationOrdered By: Andres Fraser on 09-19-2023 No growth in 5 days. [facility] No Panel InformationOrdered By: Altaf Villa on 09-19-2023 Estimated Creatinine Clearance Calc 18.07 ml/min [facility] Estimated GFR (MDRD) Amer 21 mL/min >60 [facility] Comment on above: GFR Calc Estimated GFR (MDRD) Non-Af Amer 17 mL/min >60 [facility] Comment on above: Non- GFR Calc Platelets bldOrdered By: Altaf Villa on 09-19-2023 Platelets (Bld) [#/Vol] 442 10*3/uL 150-450 [facility] Protein Test strip Ql (U)Ord ered By: Altaf Villa on 09-19-2023 Protein Ql (U) 100 mg/dl Negative [facility] Serum or plasma calcium yunior urement (mass/volume)Ordered By: Altaf Villa on 09-19-2023 Calcium [Mass/Vol] 8.4 mg/dL 8.5-10.1 [facility] Serum or plasma creatinine m easurement (mass/volume)Ordered By: Altaf Villa on 09-19-2023 Creatinine [Mass/Vol] 2.88 mg/dL 0.55-1.02 [facility] Comment on above: The validity of the calculated GFR & GFRAA in patients over 70 years has not been determined. Clinical correlation is essential. Serum or plasma urea nitroge n measurement (mass/volume)Ordered By: Altaf Villa on 09-19-2023 Urea nitrogen [Mass/Vol] 23 mg/dL 7-18 [facility] Squamous epithelial cells de tection in urine sediment by light microscopyOrdered By: Altaf Villa on 09-19-2023 Epithelial cells.squamous LM Ql (Urine sed) 0 SEEN /hpf 5-10 [facility] Thin prep Papanicolaou smear with manual screeningOrdered By: Altaf Villa on 09-19-2023 Thin prep Papanicolaou smear with manual screening 10 5-15 [facility] Urine blood detectionOrdered By: Altaf Villa on 09-19-2023 RBC Ql (U) 150 /ul Negative [facility] RBC Ql (U) 0 SEEN /hpf 0-5 [facility] Urine clarityOrdered By: Altaf Villa on 09-19-2023 Clarity (U) Cloudy Clear [facility] Urine color determinationOrd ered By: Altaf Villa on 09-19-2023 Color (U) Yellow Yellow [facility] Urine glucose detectionOrder ed By: Altaf Villa on 09-19-2023 Glucose Ql (U) Normal mg/dl Normal [facility] Urine leukocyte esterase det ection by dipstickOrdered By: Altaf Villa on 09-19-2023 Leukocyte esterase Test strip Ql (U) 500 /ul Negative [facility] Urine pHOrdered By: Altaf avalos on 09-19-2023 pH (U) 6.0 [pH] 5.0 - 8.0 [facility] Urine sediment bacteria coun t by microscopy (number/high power field)Ordered By: Altaf Villa on 09-19-2023 Bacteria LM.HPF (Urine sed) [#/Area] 0 /[HPF] None Seen [facility] Urine specific gravity measu rementOrdered By: Altaf Villa on 09-19-2023 Specific gravity (U) [Rel density] 1.015 1.002-1.03 0 [facility] Urobilinogen Auto test strip Ql (U)Ordered By: Altaf Villa on 09-19-2023 Urobilinogen Ql (U) Normal mg/dl Normal [facility] Gram stain for investigation of transfusion reactionOrdered By: Gerardo García on 08-17-2023 Microscopic observation Gram stain Nom (Unsp spec) [facility] Microscopic observation Gram stain Nom (Unsp spec) [facility] No Panel InformationOrdered By: Gerardo García on 08-17-2023 Miscellaneous Culture No growth aerobically. [facility] No growth aerobically. [facility] Miscellaneous Culture No growth aerobically. [facility] Absolute lymphocyte countOrd ered By: Angela Sorto on 08-14-2023 Lymphocytes Auto (Unsp spec) [#/Vol] 6.82 10*3/uL 0.83-4.51 [facility] Basophil percentageOrdered B y: Angela Sorto on 09-26-2023 Basophil percentage 82 mg/dL 74-106 [facility] Basophil percentage 7.2 g/dL 6.4-8.2 [facility] Basophil percentage 0.50 mg/dL 0.20-1.00 [facility] Basophil percentage 157 mg/dL <200 [facility] Basophil percentage 148 mg/dL <199 [facility] Basophil percentage 142 mmol/L 136-145 [facility] Basophil percentage 3.5 mmol/L 3.5-5.1 [facility] Basophil percentage 109 mmol/L 98-107 [facility] Basophils (Bld) [#/Vol] 12.0 10*3/uL 4.4-11.0 [facility] Basophils (Bld) [#/Vol] 4.1 10*3/uL 2.0-7.7 [facility] Basophils/100 WBC (Bld) 0.6 % 0-1 [facility] Basophils/100 WBC (Bld) 33.7 % 47-70 [facility] Basophils/100 WBC (Bld) 3.0 % 0-5 [facility] Bilirubin [Mass/Vol] 0.50 mg/dL 0.20-1.00 [facility] Comment on above: For patients on eltr ombopag therapy, use of Dimension [place] TBIL is not recommended. Chloride [Moles/Vol] 109 mmol/L 98-107 [facility] Cholesterol [Mass/Vol] 157 mg/dL <200 [facility] Comment on above: <200 mg/dL Desirable 200-240 mg/dL Borderline >240 mg/dL High Risk Eosinophils/100 WBC (Bld) 3.0 % 0-5 [facility] Glucose [Mass/Vol] 82 mg/dL 74-106 [facility] Neutrophils (Bld) [#/Vol] 4.1 10*3/uL 2.0-7.7 [facility] Neutrophils/100 WBC (Bld) 33.7 % 47-70 [facility] Potassium [Moles/Vol] 3.5 mmol/L 3.5-5.1 [facility] Protein [Mass/Vol] 7.2 g/dL 6.4-8.2 [facility] Sodium [Moles/Vol] 142 mmol/L 136-145 [facility] Triglyceride [Mass/Vol] 148 mg/dL <199 [facility] Comment on above: The drugs N-Acetylcy steine and Metamizole may falsely depress this assay.Serum Triglycerides Reference Interval Normal <150 mg/dL Borderline high 150 - 199 mg/dL High 200 - 499 mg/dL Very High > or = 500 mg/dL WBC (Bld) [#/Vol] 12.0 10*3/uL 4.4-11.0 [facility] Blood erythrocytes count (nu mber/volume)Ordered By: Angela Sorto on 08-14-2023 RBC (Bld) [#/Vol] 3.76 10*6/uL 4.2-5.4 [facility] Blood hemoglobin measurement (mass/volume)Ordered By: Angela Sorto on 08-14-2023 Hemoglobin (Bld) [Mass/Vol] 12.2 g/dL 12.0-15.0 [facility] Blood lymphocytes/100 leukoc ytesOrdered By: Angela Sorto on 08-14-2023 Lymphocytes/100 WBC (Bld) 56.5 % 19-41 [facility] Blood manual differential co mment interpretation (narrative result)Ordered By: Angela Sorto on 08-14-2023 Manual differential comment Pollo (Bld) [Interp] SCANNED [facility] Comment on above: LYMPHOCYTOSIS NOTED Blood monocytes/100 leukocyt esOrdered By: Angela Sorto on 08-14-2023 Monocytes/100 WBC (Bld) 5.5 % 0-10 [facility] Blood platelet mean volumeOr dered By: Angela Sorto on 08-14-2023 Platelet mean volume (Bld) [Entitic vol] 10.4 fL 6.2-12.0 [facility] Determination of erythrocyte mean corpuscular volume (MCV)Ordered By: Angela Sorto on 08-14-2023 MCV (RBC) [Entitic vol] 100.0 fL 81-99 [facility] Hematocrit Auto (Bld) [Volum e fraction]Ordered By: Angela Sorto on 08-14-2023 Hematocrit (Bld) [Volume fraction] 37.6 % 37-47 [facility] Laboratory - Chemistry and C hemistry - challengeOrdered By: Angela Sorto on 08-14-2023 ALP [Catalytic activity/Vol] 74 U/L 45-117 [facility] ALT [Catalytic activity/Vol] 12 U/L 13-56 [facility] CO2 [Moles/Vol] 26.0 mmol/L 21.0-32.0 [facility] Globulin (S) [Mass/Vol] 5.0 g/dL 2.2-4.2 [facility] Urea nitrogen/Creatinine [Mass ratio] 5.4 mg/mg 10-20 [facility] Laboratory - Hematology and Cell countsOrdered By: Angela Sorto on 08-14-2023 Erythrocyte distribution width (RBC) [Entitic vol] 55.0 fL 35.1-43.9 [facility] Erythrocyte distribution width (RBC) [Ratio] 15.0 % 11.6-14.6 [facility] Immature granulocytes/100 WBC (Bld) 0.700 % 0.0-0.9 [facility] Comment on above: IG% - Immature Granu locytes (promyelocytes, myelocytes and metamyelocytes) > 1% indicates that a LEFT SHIFT is Present. MCH (RBC) [Entitic mass] 32.4 pg 27.0-32.0 [facility] Nucleated RBC/100 WBC (Bld) [Ratio] 0.2 % 0-5 [facility] MCHC Auto (RBC) [Mass/Vol]Or dered By: Angela Sorto on 08-14-2023 MCHC (RBC) [Mass/Vol] 32.4 g/dL 32-36 [facility] No Panel InformationOrdered By: Angela Sorto on 08-14-2023 Estimated GFR (MDRD) Amer 39 mL/min >60 [facility] Comment on above: GFR Calc Estimated GFR (MDRD) Non-Af Amer 32 mL/min >60 [facility] Comment on above: Non- GFR Calc Thyroid Stimulating Hormone (TSH) 3.85 uIU/mL 0.358-3.74 [facility] 32.4 pg 27.0-32.0 [facility] 15.0 % 11.6-14.6 [facility] 55.0 fl 35.1-43.9 [facility] 0.700 % 0.0-0.9 [facility] 0.2 % 0-5 [facility] 32 mL/min >60 [facility] 39 mL/min >60 [facility] 5.4 RATIO 10-20 [facility] 5.0 g/dL 2.2-4.2 [facility] 74 U/L 45-117 [facility] 12 U/L 13-56 [facility] 26.0 mmol/L 21.0-32.0 [facility] 3.85 uIU/mL 0.358-3.74 [facility] Platelets bldOrdered By: Jessica Sorto on 08-14-2023 Platelets (Bld) [#/Vol] 373 10*3/uL 150-450 [facility] Serum or plasma albumin yunior urement (mass/volume)Ordered By: Angela Sorto on 08-14-2023 Albumin [Mass/Vol] 2.2 g/dL 3.2-5.0 [facility] Serum or plasma albumin/glob ulin mass ratioOrdered By: Angela Sorto on 08-14-2023 Albumin/Globulin [Mass ratio] 0.4 {ratio} 0.9-2.4 [facility] Serum or plasma calcium yunior urement (mass/volume)Ordered By: Angela Sorto on 08-14-2023 Calcium [Mass/Vol] 7.9 mg/dL 8.5-10.1 [facility] Serum or plasma cholesterol in HDL measurement (mass/volume)Ordered By: Angela Sorto on 08-14-2023 Cholesterol in HDL [Mass/Vol] 36 mg/dL >40 [facility] Comment on above: The drugs N-Acetylcy steine and Metamizole may falsely depress this assay. Reference Range HDL <40 mg/dL Low HDL Cholesterol HDL >or= 60 mg/dL High HDL Cholesterol Serum or plasma cholesterol in VLDL measurement (mass/volume)Ordered By: Angela Sorto on 08-14-2023 Cholesterol in VLDL [Mass/Vol] 30 mg/dL 5-40 [facility] Serum or plasma creatinine m easurement (mass/volume)Ordered By: Angela Sorto on 08-14-2023 Creatinine [Mass/Vol] 1.66 mg/dL 0.55-1.02 [facility] Comment on above: The validity of the calculated GFR & GFRAA in patients over 70 years has not been determined. Clinical correlation is essential. Serum or plasma low density lipoprotein (LDL) cholesterol measurement (mass/volume)Ordered By: Angela Sorto on 08-14-2023 Cholesterol in LDL [Mass/Vol] 91 mg/dL 0-130 [facility] Serum or plasma urea nitroge n measurement (mass/volume)Ordered By: Angela Sorto on 08-14-2023 Urea nitrogen [Mass/Vol] 9 mg/dL 7-18 [facility] Thin prep Papanicolaou smear with manual screeningOrdered By: Angela Sorto on 08-14-2023 Thin prep Papanicolaou smear with manual screening 11 U/L 15-37 [facility] Thin prep Papanicolaou smear with manual screening 7 5-15 [facility] No Panel InformationOrdered By: Luz Maria Matthews on 08-10-2023 Parathyroid Hormone (Intact) 90.9 pg/mL 18.4-80.1 [facility] 90.9 pg/mL 18.4-80.1 [facility] No Panel InformationOrdered By: Angela Sorto on 08-10-2023 Vitamin D 25-Hydroxy 66.9 ng/mL [facility] Comment on above: Vitamin D 25(OH) Sta tus Range Deficiency <20 ng/mL (50nmol/L) Insufficiency 20 - 30 ng/mL (50 - 75 nmol/L) Sufficiency 30 - 100 ng/mL (75 - 250 nmol/L) Toxicity >100 ng/mL (>250 nmol/L) 66.9 ng/mL [facility] Absolute lymphocyte countOrd ered By: John Light on 08-07-2023 Lymphocytes Auto (Unsp spec) [#/Vol] 4.81 10*3/uL 0.83-4.51 [facility] Basophil percentageOrdered B y: John Light on 08-07-2023 Basophil percentage 96 mg/dL 74-106 [facility] Basophil percentage 141 mmol/L 136-145 [facility] Basophil percentage 3.3 mmol/L 3.5-5.1 [facility] Basophil percentage 114 mmol/L 98-107 [facility] Basophils (Bld) [#/Vol] 10.0 10*3/uL 4.4-11.0 [facility] Basophils (Bld) [#/Vol] 4.3 10*3/uL 2.0-7.7 [facility] Basophils/100 WBC (Bld) 0.6 % 0-1 [facility] Basophils/100 WBC (Bld) 43.0 % 47-70 [facility] Basophils/100 WBC (Bld) 2.0 % 0-5 [facility] Chloride [Moles/Vol] 114 mmol/L 98-107 [facility] Eosinophils/100 WBC (Bld) 2.0 % 0-5 [facility] Glucose [Mass/Vol] 96 mg/dL 74-106 [facility] Neutrophils (Bld) [#/Vol] 4.3 10*3/uL 2.0-7.7 [facility] Neutrophils/100 WBC (Bld) 43.0 % 47-70 [facility] Potassium [Moles/Vol] 3.3 mmol/L 3.5-5.1 [facility] Sodium [Moles/Vol] 141 mmol/L 136-145 [facility] WBC (Bld) [#/Vol] 10.0 10*3/uL 4.4-11.0 [facility] Blood erythrocytes count (nu mber/volume)Ordered By: John Light on 08-07-2023 RBC (Bld) [#/Vol] 3.68 10*6/uL 4.2-5.4 [facility] Blood hemoglobin measurement (mass/volume)Ordered By: John Light on 08-07-2023 Hemoglobin (Bld) [Mass/Vol] 11.7 g/dL 12.0-15.0 [facility] Blood lymphocytes/100 leukoc ytesOrdered By: John Light on 08-07-2023 Lymphocytes/100 WBC (Bld) 48.0 % 19-41 [facility] Blood monocytes/100 leukocyt esOrdered By: John Light on 08-07-2023 Monocytes/100 WBC (Bld) 5.9 % 0-10 [facility] Blood platelet mean volumeOr dered By: John Light on 08-07-2023 Platelet mean volume (Bld) [Entitic vol] 10.0 fL 6.2-12.0 [facility] Determination of erythrocyte mean corpuscular volume (MCV)Ordered By: John Light on 08-07-2023 MCV (RBC) [Entitic vol] 98.9 fL 81-99 [facility] Hematocrit Auto (Bld) [Volum e fraction]Ordered By: John Light on 08-07-2023 Hematocrit (Bld) [Volume fraction] 36.4 % 37-47 [facility] Laboratory - Chemistry and C hemistry - challengeOrdered By: John Light on 08-07-2023 CO2 [Moles/Vol] 20.0 mmol/L 21.0-32.0 [facility] Urea nitrogen/Creatinine [Mass ratio] 8.5 mg/mg 10-20 [facility] Laboratory - Hematology and Cell countsOrdered By: John Light on 08-07-2023 Erythrocyte distribution width (RBC) [Entitic vol] 53.8 fL 35.1-43.9 [facility] Erythrocyte distribution width (RBC) [Ratio] 14.6 % 11.6-14.6 [facility] Immature granulocytes/100 WBC (Bld) 0.500 % 0.0-0.9 [facility] Comment on above: IG% - Immature Granu locytes (promyelocytes, myelocytes and metamyelocytes) > 1% indicates that a LEFT SHIFT is Present. MCH (RBC) [Entitic mass] 31.8 pg 27.0-32.0 [facility] Nucleated RBC/100 WBC (Bld) [Ratio] 0 % 0-5 [facility] MCHC Auto (RBC) [Mass/Vol]Or dered By: John Light on 08-07-2023 MCHC (RBC) [Mass/Vol] 32.1 g/dL 32-36 [facility] No Panel InformationOrdered By: John Light on 08-07-2023 Estimated Creatinine Clearance Calc 25.03 ml/min [facility] Estimated GFR (MDRD) Amer 30 mL/min >60 [facility] Comment on above: GFR Calc Estimated GFR (MDRD) Non-Af Amer 25 mL/min >60 [facility] Comment on above: Non- GFR Calc 31.8 pg 27.0-32.0 [facility] 14.6 % 11.6-14.6 [facility] 53.8 fl 35.1-43.9 [facility] 0.500 % 0.0-0.9 [facility] 0 % 0-5 [facility] 25 mL/min >60 [facility] 30 mL/min >60 [facility] 25.03 ml/min [facility] 8.5 RATIO 10-20 [facility] 20.0 mmol/L 21.0-32.0 [facility] Platelets bldOrdered By: Rabia Light on 08-07-2023 Platelets (Bld) [#/Vol] 271 10*3/uL 150-450 [facility] Serum or plasma calcium yunior urement (mass/volume)Ordered By: John Light on 08-07-2023 Calcium [Mass/Vol] 7.5 mg/dL 8.5-10.1 [facility] Serum or plasma creatinine m easurement (mass/volume)Ordered By: John Light on 08-07-2023 Creatinine [Mass/Vol] 2.11 mg/dL 0.55-1.02 [facility] Comment on above: The validity of the calculated GFR & GFRAA in patients over 70 years has not been determined. Clinical correlation is essential. Serum or plasma urea nitroge n measurement (mass/volume)Ordered By: John Light on 08-07-2023 Urea nitrogen [Mass/Vol] 18 mg/dL 7-18 [facility] Thin prep Papanicolaou smear with manual screeningOrdered By: John Light on 08-07-2023 Thin prep Papanicolaou smear with manual screening 7 5-15 [facility] Basophil percentageOrdered B y: Holly Echeverria on 08-03-2023 Basophil percentage 6.4 g/dL 6.4-8.2 [facility] Basophil percentage 1.00 mg/dL 0.20-1.00 [facility] Bilirubin [Mass/Vol] 1.00 mg/dL 0.20-1.00 [facility] Comment on above: For patients on eltr ombopag therapy, use of Dimension Howard TBIL is not recommended. Protein [Mass/Vol] 6.4 g/dL 6.4-8.2 [facility] Laboratory - Chemistry and C hemistry - challengeOrdered By: Holly Echeverria on 08-03-2023 ALP [Catalytic activity/Vol] 90 U/L [facility] ALT [Catalytic activity/Vol] 10 U/L [facility] Globulin (S) [Mass/Vol] 4.3 g/dL 2.2-4.2 [facility] No Panel InformationOrdered By: Holly Echeverria on 08-03-2023 4.3 g/dL 2.2-4.2 [facility] 90 U/L [facility] 10 U/L [facility] Serum or plasma albumin yunior urement (mass/volume)Ordered By: Holly Echeverria on 08-03-2023 Albumin [Mass/Vol] 2.1 g/dL 3.2-5.0 [facility] Serum or plasma albumin/glob ulin mass ratioOrdered By: Holly Echeverria on 08-03-2023 Albumin/Globulin [Mass ratio] 0.5 {ratio} 0.9-2.4 [facility] Thin prep Papanicolaou smear with manual screeningOrdered By: Holly Echeverria on 08-03-2023 Thin prep Papanicolaou smear with manual screening 13 U/L 15 [facility] Bacteria identified Cx Nom ( U)Ordered By: Brian Mckee on 08-02-2023 Culture, urine Pseudomonas aeruginosa [facility] Basophil percentageOrdered B y: Brian Mckee on 08-02-2023 Basophil percentage 1.6 mmol/L 0.4-2.0 [facility] Lactate [Moles/Vol] 1.6 mmol/L 0.4-2.0 [facility] Basophil percentage >100 SEEN /hpf 0-5 [facility] Comment on above: Microscopic field is filled. Other elements may be obscured. Bilirubin Test strip Ql (U)O rdered By: Brian Mckee on 08-02-2023 Bilirubin Ql (U) Negative Negative [facility] Blood manual differential co mment interpretation (narrative result)Ordered By: Brian Mckee on 08-02-2023 Manual differential comment Pollo (Bld) [Interp] SCANNED [facility] COVID-19 virus antigen assay Ordered By: Brian Mckee on 08-02-2023 SARS-CoV-2 (COVID-19) Ag IA.rapid Ql (Resp) [facility] SARS-CoV-2 (COVID-19) Ag IA.rapid Ql (Resp) [facility] Culture, urineOrdered By: Viktor Mckee on 08-02-2023 Bacteria identified Cx Nom (U) Pseudomonas aeruginosa [facility] Bacteria identified Cx Nom (U) Pseudomonas aeruginosa [facility] Ketones Test strip Ql (U)Ord ered By: Brian Mckee on 08-02-2023 Ketones Ql (U) Negative Negative [facility] Laboratory - Chemistry and C hemistry - challengeOrdered By: Brian Mckee on 08-02-2023 Lipase [Catalytic activity/Vol] 26 U/L 13-75 [facility] Comment on above: Please note:LIPASE r evised reference range effective 23. New Lipase methodology. Expected to produce lower values than the previous assay method. NEW Reference Range: 13 - 75 U/L Laboratory - Microbiology an d Antimicrobial susceptibilityOrdered By: Brian Mckee on 08-02-2023 Bacteria identified Cx Nom (Bld) No growth in 5 days. [facility] Bacteria identified Cx Nom (Bld) No growth in 5 days. [facility] Mucus LM Ql (Urine sed)Order ed By: Brian Mckee on 08-02-2023 Mucus Ql (Urine sed) 0 SEEN /hpf [facility] Nitrite Test strip Ql (U)Ord ered By: Brian Mckee on 08-02-2023 Nitrite Ql (U) Positive Negative [facility] No Panel InformationOrdered By: Brian Mckee on 08-02-2023 No growth in 5 days. [facility] 26 U/L 13-75 [facility] Protein Test strip Ql (U)Ord ered By: Brian Mckee on 08-02-2023 Protein Ql (U) 100 mg/dl Negative [facility] Review by pathologistOrdered By: Brian Mckee on 08-02-2023 Pathologist review Pollo (Unsp spec) [Interp] Reviewed [facility] Comment on above: Previous reported re sult: Denisse alcala Edited by: RGOOD on 08/06/23:0958Neutrophilic leukocytosis.Clinical correlation necessary.Nikolas Clark M.D. 08/06/23 AMENDED REPORT 08/06/23 0958 PATH REV previously reported as: Denisse alcala Squamous epithelial cells de tection in urine sediment by light microscopyOrdered By: Brian Mckee on 08-02-2023 Epithelial cells.squamous LM Ql (Urine sed) 0 SEEN /hpf 5-10 [facility] Urine blood detectionOrdered By: Brian Mckee on 08-02-2023 RBC Ql (U) 150 /ul Negative [facility] RBC Ql (U) 0-5 SEEN /hpf 0-5 [facility] Urine clarityOrdered By: Eladio Mckee on 08-02-2023 Clarity (U) Cloudy Clear [facility] Urine color determinationOrd ered By: Brian Mckee on 08-02-2023 Color (U) Yellow Yellow [facility] Urine glucose detectionOrder ed By: Brian Mckee on 08-02-2023 Glucose Ql (U) Normal mg/dl Normal [facility] Urine leukocyte esterase det ection by dipstickOrdered By: Brian Mckee on 08-02-2023 Leukocyte esterase Test strip Ql (U) 500 /ul Negative [facility] Urine pHOrdered By: Brian delarosa on 08-02-2023 pH (U) 6.0 [pH] 5.0 - 8.0 [facility] Urine sediment bacteria coun t by microscopy (number/high power field)Ordered By: Brian Mckee on 08-02-2023 Bacteria LM.HPF (Urine sed) [#/Area] 2 /[HPF] None Seen [facility] Urine specific gravity measu rementOrdered By: Brian Mckee on 08-02-2023 Specific gravity (U) [Rel density] 1.010 1.002-1.03 0 [facility] Urobilinogen Auto test strip Ql (U)Ordered By: Brian Mckee on 08-02-2023 Urobilinogen Ql (U) Normal mg/dl Normal [facility] Laboratory - Microbiology an d Antimicrobial susceptibilityOrdered By: Gerardo García on 07-20-2023 SARS-CoV-2 (COVID-19) RNA BOBBI+probe Ql (Unsp spec) [facility] SARS-CoV-2 (COVID-19) RNA BOBBI+probe Ql (Unsp spec) [facility] No Panel InformationOrdered By: Gerardo García on 07-20-2023 Influenza Types A,B Direct FA (LEVI) [facility] Influenza Types A,B Direct FA (LEVI) [facility] RSV Ag EIAOrdered By: Gerardo guerra on 07-20-2023 RSV Ag Immune stain Ql (Tiss) [facility] RSV Ag Immune stain Ql (Tiss) [facility] Gram stain for investigation of transfusion reactionOrdered By: Gerardo García on 06-19-2023 Microscopic observation Gram stain Nom (Unsp spec) [facility] No Panel InformationOrdered By: Gerardo García on 06-19-2023 Methicillin-Resist S.aureus DNA PCR Negative Negative [facility] Negative Negative [facility] Routine wound cultureOrdered By: Gerardo García on 06-19-2023 Bacteria identified Cx Nom (Wound) No growth aerobically. [facility] Staphylococcus aureus DNA de tection by probe and target amplification methodOrdered By: Gerardo García on 06-19-2023 S. aureus DNA BOBBI+probe Ql (Unsp spec) Negative Negative [facility] Basophil percentageOrdered B y: Luz Maria Matthews on 06-11-2023 Basophil percentage 3.6 mg/dL 2.5-4.9 [facility] Basophil percentage 98 mg/dL 74-106 [facility] Basophil percentage 136 mmol/L 136-145 [facility] Basophil percentage 4.1 mmol/L 3.5-5.1 [facility] Basophil percentage 105 mmol/L 98-107 [facility] Chloride [Moles/Vol] 105 mmol/L 98-107 [facility] Glucose [Mass/Vol] 98 mg/dL 74-106 [facility] Potassium [Moles/Vol] 4.1 mmol/L 3.5-5.1 [facility] Sodium [Moles/Vol] 136 mmol/L 136-145 [facility] Laboratory - Chemistry and C hemistry - challengeOrdered By: Luz Maria Matthews on 06-11-2023 CO2 [Moles/Vol] 26.0 mmol/L 21.0-32.0 [facility] Urea nitrogen/Creatinine [Mass ratio] 8.2 mg/mg 10-20 [facility] No Panel InformationOrdered By: Luz Maria Matthews on 06-11-2023 Estimated GFR (MDRD) Amer 38 mL/min >60 [facility] Comment on above: GFR Calc Estimated GFR (MDRD) Non-Af Amer 31 mL/min >60 [facility] Comment on above: Non- GFR Calc Parathyroid Hormone (Intact) 99.8 pg/mL 18.4-80.1 [facility] 31 mL/min >60 [facility] 38 mL/min >60 [facility] 8.2 RATIO 10-20 [facility] 26.0 mmol/L 21.0-32.0 [facility] 99.8 pg/mL 18.4-80.1 [facility] Serum or plasma albumin yunior urement (mass/volume)Ordered By: Luz Maria Matthews on 06-11-2023 Albumin [Mass/Vol] 2.7 g/dL 3.2-5.0 [facility] Serum or plasma calcium yunior urement (mass/volume)Ordered By: Luz Maria Matthews on 06-11-2023 Calcium [Mass/Vol] 8.3 mg/dL 8.5-10.1 [facility] Serum or plasma creatinine m easurement (mass/volume)Ordered By: Luz Maria Matthews on 06-11-2023 Creatinine [Mass/Vol] 1.71 mg/dL 0.55-1.02 [facility] Comment on above: The validity of the calculated GFR & GFRAA in patients over 70 years has not been determined. Clinical correlation is essential. Serum or plasma urea nitroge n measurement (mass/volume)Ordered By: Luz Maria Matthews on 06-11-2023 Urea nitrogen [Mass/Vol] 14 mg/dL 7-18 [facility] Culture, urineOrdered By: Mckenna Strickland on 05-28-2023 Bacteria identified Cx Nom (U) Pseudomonas aeruginosa [facility] Bacteria identified Cx Nom (U) Klebsiella pneumoniae sp pneum [facility] Culture, urineOrdered By: Dr Javy García on 05-15-2023 Bacteria identified Cx Nom (U) Pseudomonas aeruginosa [facility] COVID-19 virus antigen assay Ordered By: Dr. García on 05-14-2023 SARS-CoV-2 (COVID-19) Ag IA.rapid Ql (Resp) Not detected Not Detect [facility] Comment on above: Normal Reference Ran ge: [...] 05-14-2023 Influenza Types A,B Direct FA (LEVI) [facility] No Panel InformationOrdered By: Dr. García on 05-14-2023 Influenza Types A,B Direct FA (LEVI) [facility] RSV Ag EIAOrdered By: Gerardo guerra on 05-14-2023 RSV Ag Immune stain Ql (Tiss) [facility] RSV Ag EIAOrdered By: Dr. Saúl guerra on 05-14-2023 RSV Ag Immune stain Ql (Tiss) [facility] Culture, urineOrdered By: Dr Javy Strickland on 05-12-2023 Bacteria identified Cx Nom (U) Pseudomonas aeruginosa [facility] Culture, urineOrdered By: Lenny García on 05-11-2023 Bacteria identified Cx Nom (U) Pseudomonas aeruginosa [facility] Culture, urineOrdered By: Mckenna Strickland on 05-10-2023 Bacteria identified Cx Nom (U) Pseudomonas aeruginosa [facility] Absolute lymphocyte countOrd ered By: Dr. García on 04-03-2023 Lymphocytes Auto (Unsp spec) [#/Vol] 8.29 10*3/uL 0.83-4.51 [facility] Basophil percentageOrdered B y: Dr. García on 05-16-2023 Basophils/100 WBC (Bld) 0.6 % 0-1 [facility] Bilirubin [Mass/Vol] 0.90 mg/dL 0.20-1.00 [facility] Comment on above: For patients on eltr ombopag therapy, use of Dimension Howard TBIL is not recommended. Chloride [Moles/Vol] 107 mmol/L 98-107 [facility] Eosinophils/100 WBC (Bld) 1.0 % 0-5 [facility] Glucose [Mass/Vol] 113 mg/dL 74-106 [facility] Comment on above: Fasting Glucose resu lt from 100 to 125 mg/dL suggests IMPAIRED HOMEOSTASIS per A.D.A. criteria. Neutrophils (Bld) [#/Vol] 6.3 10*3/uL 2.0-7.7 [facility] Neutrophils/100 WBC (Bld) 39.4 % 47-70 [facility] Potassium [Moles/Vol] 4.1 mmol/L 3.5-5.1 [facility] Protein [Mass/Vol] 7.9 g/dL 6.4-8.2 [facility] Sodium [Moles/Vol] 139 mmol/L 136-145 [facility] WBC (Bld) [#/Vol] 16.0 10*3/uL 4.4-11.0 [facility] Bilirubin Test strip Ql (U)O rdered By: Dr. García on 04-03-2023 Bilirubin Ql (U) Negative Negative [facility] Blood erythrocytes count (nu mber/volume)Ordered By: Dr. García on 04-03-2023 RBC (Bld) [#/Vol] 4.69 10*6/uL 4.2-5.4 [facility] Blood hemoglobin measurement (mass/volume)Ordered By: Dr. García on 04-03-2023 Hemoglobin (Bld) [Mass/Vol] 14.9 g/dL 12.0-15.0 [facility] Blood lymphocytes/100 leukoc ytesOrdered By: Dr. García on 04-03-2023 Lymphocytes/100 WBC (Bld) 51.8 % 19-41 [facility] Blood monocytes/100 leukocyt esOrdered By: Dr. García on 04-03-2023 Monocytes/100 WBC (Bld) 6.9 % 0-10 [facility] Blood platelet mean volumeOr dered By: Dr. García on 04-03-2023 Platelet mean volume (Bld) [Entitic vol] 10.1 fL 6.2-12.0 [facility] Determination of erythrocyte mean corpuscular volume (MCV)Ordered By: Dr. García on 04-03-2023 MCV (RBC) [Entitic vol] 97.9 fL 81-99 [facility] Hematocrit Auto (Bld) [Volum e fraction]Ordered By: Dr. García on 04-03-2023 Hematocrit (Bld) [Volume fraction] 45.9 % 37-47 [facility] Ketones Test strip Ql (U)Ord ered By: Dr. García on 04-03-2023 Ketones Ql (U) Negative Negative [facility] Laboratory - Chemistry and C hemistry - challengeOrdered By: Dr. García on 04-03-2023 ALP [Catalytic activity/Vol] 94 U/L 45-117 [facility] ALT [Catalytic activity/Vol] 15 U/L 13-56 [facility] CO2 [Moles/Vol] 25.0 mmol/L 21.0-32.0 [facility] Globulin (S) [Mass/Vol] 5.2 g/dL 2.2-4.2 [facility] Urea nitrogen/Creatinine [Mass ratio] 8.9 mg/mg 10-20 [facility] Laboratory - Hematology and Cell countsOrdered By: Dr. García on 04-03-2023 Erythrocyte distribution width (RBC) [Entitic vol] 52.1 fL 35.1-43.9 [facility] Erythrocyte distribution width (RBC) [Ratio] 14.5 % 11.6-14.6 [facility] Immature granulocytes/100 WBC (Bld) 0.300 % 0.0-0.9 [facility] Comment on above: IG% - Immature Granu locytes (promyelocytes, myelocytes and metamyelocytes) > 1% indicates that a LEFT SHIFT is Present. MCH (RBC) [Entitic mass] 31.8 pg 27.0-32.0 [facility] Nucleated RBC/100 WBC (Bld) [Ratio] 0 % 0-5 [facility] MCHC Auto (RBC) [Mass/Vol]Or dered By: Dr. García on 04-03-2023 MCHC (RBC) [Mass/Vol] 32.5 g/dL 32-36 [facility] Nitrite Test strip Ql (U)Ord ered By: Dr. García on 04-03-2023 Nitrite Ql (U) Positive Negative [facility] No Panel InformationOrdered By: Dr. García on 04-03-2023 Estimated GFR (MDRD) Amer 31 mL/min >60 [facility] [facility] Comment on above: GFR Calc Estimated GFR (MDRD) Non-Af Amer 26 mL/min >60 [facility] Comment on above: Non- GFR Calc Reactive Lymphocytes 1+ [facility] Platelets bldOrdered By: Dr. García on 04-03-2023 Platelets (Bld) [#/Vol] 340 10*3/uL 150-450 [facility] Protein Test strip Ql (U)Ord ered By: Dr. García on 04-03-2023 Protein Ql (U) 100 mg/dl Negative [facility] Serum or plasma albumin yunior urement (mass/volume)Ordered By: Dr. García on 04-03-2023 Albumin [Mass/Vol] 2.7 g/dL 3.2-5.0 [facility] Serum or plasma albumin/glob ulin mass ratioOrdered By: Dr. García on 04-03-2023 Albumin/Globulin [Mass ratio] 0.5 {ratio} 0.9-2.4 [facility] Serum or plasma calcium yunior urement (mass/volume)Ordered By: Dr. García on 04-03-2023 Calcium [Mass/Vol] 9.2 mg/dL 8.5-10.1 [facility] Serum or plasma creatinine m easurement (mass/volume)Ordered By: Dr. García on 04-03-2023 Creatinine [Mass/Vol] 2.02 mg/dL 0.55-1.02 [facility] Comment on above: The validity of the calculated GFR & GFRAA in patients over 70 years has not been determined. Clinical correlation is essential. Serum or plasma urea nitroge n measurement (mass/volume)Ordered By: Dr. García on 04-03-2023 Urea nitrogen [Mass/Vol] 18 mg/dL 7-18 [facility] Thin prep Papanicolaou smear with manual screeningOrdered By: Dr. García on 04-03-2023 Thin prep Papanicolaou smear with manual screening 16 U/L 15-37 [facility] Thin prep Papanicolaou smear with manual screening 7 5-15 [facility] Urine blood detectionOrdered By: Dr. García on 04-03-2023 RBC Ql (U) 150 /ul Negative [facility] Urine clarityOrdered By: Dr. García on 04-03-2023 Clarity (U) Cloudy Clear [facility] Urine color determinationOrd ered By: Dr. García on 04-03-2023 Color (U) Yellow Yellow [facility] Urine glucose detectionOrder ed By: Dr. García on 04-03-2023 Glucose Ql (U) Normal mg/dl Normal [facility] Urine leukocyte esterase det ection by dipstickOrdered By: Dr. García on 04-03-2023 Leukocyte esterase Test strip Ql (U) 500 /ul Negative [facility] Urine pHOrdered By: Dr. García on 04-03-2023 pH (U) 7.0 [pH] 5.0 - 8.0 [facility] Urine specific gravity measu rementOrdered By: Dr. García on 04-03-2023 Specific gravity (U) [Rel density] 1.010 1.002-1.03 0 [facility] Urobilinogen Auto test strip Ql (U)Ordered By: Dr. García on 04-03-2023 Urobilinogen Ql (U) Normal mg/dl Normal [facility] Absolute lymphocyte countOrd ered By: Gerardo García on 01-22-2023 Lymphocytes Auto (Unsp spec) [#/Vol] 3.62 10*3/uL 0.83-4.51 [facility] Basophil percentageOrdered B y: Gerardo García on 01-22-2023 Basophils/100 WBC (Bld) 0.4 % 0-1 [facility] Bilirubin [Mass/Vol] 0.80 mg/dL 0.20-1.00 [facility] Comment on above: For patients on eltr ombopag therapy, use of Dimension Howard TBIL is not recommended. Chloride [Moles/Vol] 105 mmol/L 98-107 [facility] Cholesterol [Mass/Vol] 218 mg/dL <200 [facility] Comment on above: <200 mg/dL Desirable 200-240 mg/dL Borderline >240 mg/dL High Risk Eosinophils/100 WBC (Bld) 0.1 % 0-5 [facility] Glucose [Mass/Vol] 104 mg/dL 74-106 [facility] Comment on above: Fasting Glucose resu lt from 100 to 125 mg/dL suggests IMPAIRED HOMEOSTASIS per A.D.A. criteria. Neutrophils (Bld) [#/Vol] 11.5 10*3/uL 2.0-7.7 [facility] Neutrophils/100 WBC (Bld) 73.2 % 47-70 [facility] Potassium [Moles/Vol] 4.1 mmol/L 3.5-5.1 [facility] Protein [Mass/Vol] 7.9 g/dL 6.4-8.2 [facility] Sodium [Moles/Vol] 137 mmol/L 136-145 [facility] Triglyceride [Mass/Vol] 190 mg/dL <199 [facility] Comment on above: The drugs N-Acetylcy steine and Metamizole may falsely depress this assay.Serum Triglycerides Reference Interval Normal <150 mg/dL Borderline high 150 - 199 mg/dL High 200 - 499 mg/dL Very High > or = 500 mg/dL WBC (Bld) [#/Vol] 15.7 10*3/uL 4.4-11.0 [facility] Blood erythrocytes count (nu mber/volume)Ordered By: Gerardo García on 01-22-2023 RBC (Bld) [#/Vol] 4.61 10*6/uL 4.2-5.4 [facility] Blood hemoglobin measurement (mass/volume)Ordered By: Gerardo García on 01-22-2023 Hemoglobin (Bld) [Mass/Vol] 14.9 g/dL 12.0-15.0 [facility] Blood lymphocytes/100 leukoc ytesOrdered By: Gerardo García on 01-22-2023 Lymphocytes/100 WBC (Bld) 23.1 % 19-41 [facility] Blood monocytes/100 leukocyt esOrdered By: Gerardo García on 01-22-2023 Monocytes/100 WBC (Bld) 2.4 % 0-10 [facility] Blood platelet mean volumeOr dered By: Gerardo García on 01-22-2023 Platelet mean volume (Bld) [Entitic vol] 10.6 fL 6.2-12.0 [facility] COVID-19 virus antigen assay Ordered By: Dr. García on 01-22-2023 SARS-CoV-2 (COVID-19) Ag IA.rapid Ql (Resp) Not detected Not Detect [facility] Comment on above: Normal Reference Ran ge: Not DetectedMethod:(RT-PCR) real-time reverse transcriptase PCRLuminex Etubics Instrument*The Food and Drug Administration (FDA) has issued an Emergency Use Authorization (EAU) for the Etubics SARS-CoV-2 Assay for the rapid detection of [...] (RBC) [Entitic vol] 100.4 fL 81-99 [facility] Hematocrit Auto (Bld) [Volum e fraction]Ordered By: Gerardo García on 01-22-2023 Hematocrit (Bld) [Volume fraction] 46.3 % 37-47 [facility] Laboratory - Chemistry and C hemistry - challengeOrdered By: Gerardo García on 01-22-2023 ALP [Catalytic activity/Vol] 89 U/L 45-117 [facility] ALT [Catalytic activity/Vol] 16 U/L 13-56 [facility] CO2 [Moles/Vol] 24.0 mmol/L 21.0-32.0 [facility] Globulin (S) [Mass/Vol] 4.7 g/dL 2.2-4.2 [facility] Urea nitrogen/Creatinine [Mass ratio] 14.8 mg/mg 10-20 [facility] Laboratory - Hematology and Cell countsOrdered By: Gerardo García on 01-22-2023 Erythrocyte distribution width (RBC) [Entitic vol] 49.1 fL 35.1-43.9 [facility] Erythrocyte distribution width (RBC) [Ratio] 13.3 % 11.6-14.6 [facility] Immature granulocytes/100 WBC (Bld) 0.800 % 0.0-0.9 [facility] Comment on above: IG% - Immature Granu locytes (promyelocytes, myelocytes and metamyelocytes) > 1% indicates that a LEFT SHIFT is Present. MCH (RBC) [Entitic mass] 32.3 pg 27.0-32.0 [facility] Nucleated RBC/100 WBC (Bld) [Ratio] 0 % 0-5 [facility] MCHC Auto (RBC) [Mass/Vol]Or dered By: Gerardo García on 01-22-2023 MCHC (RBC) [Mass/Vol] 32.2 g/dL 32-36 [facility] No Panel InformationOrdered By: Gerardo García on 01-22-2023 Estimated GFR (MDRD) Amer 30 mL/min >60 [facility] Comment on above: GFR Calc Estimated GFR (MDRD) Non-Af Amer 25 mL/min >60 [facility] Comment on above: Non- GFR Calc Thyroid Stimulating Hormone (TSH) 2.47 uIU/mL 0.358-3.74 [facility] Vitamin D 25-Hydroxy 58.8 ng/mL [facility] Comment on above: Vitamin D 25(OH) Sta tus Range Deficiency <20 ng/mL (50nmol/L) Insufficiency 20 - 30 ng/mL (50 - 75 nmol/L) Sufficiency 30 - 100 ng/mL (75 - 250 nmol/L) Toxicity >100 ng/mL (>250 nmol/L) No Panel InformationOrdered By: Dr. García on 01-22-2023 Influenza Types A,B Direct FA (LEVI) [facility] Platelets bldOrdered By: Gerardo García on 01-22-2023 Platelets (Bld) [#/Vol] 353 10*3/uL 150-450 [facility] RSV Ag EIAOrdered By: Dr. Saúl guerra on 01-22-2023 RSV Ag Immune stain Ql (Tiss) [facility] Serum or plasma albumin yunior urement (mass/volume)Ordered By: Gerardo García on 01-22-2023 Albumin [Mass/Vol] 3.2 g/dL 3.2-5.0 [facility] Serum or plasma albumin/glob ulin mass ratioOrdered By: Gerardo García on 01-22-2023 Albumin/Globulin [Mass ratio] 0.7 {ratio} 0.9-2.4 [facility] Serum or plasma calcium yunior urement (mass/volume)Ordered By: Gerardo García on 01-22-2023 Calcium [Mass/Vol] 8.7 mg/dL 8.5-10.1 [facility] Serum or plasma cholesterol in HDL measurement (mass/volume)Ordered By: Gerardo García on 01-22-2023 Cholesterol in HDL [Mass/Vol] 41 mg/dL >40 [facility] Comment on above: The drugs N-Acetylcy steine and Metamizole may falsely depress this assay. Reference Range HDL <40 mg/dL Low HDL Cholesterol HDL >or= 60 mg/dL High HDL Cholesterol Serum or plasma cholesterol in VLDL measurement (mass/volume)Ordered By: Gerardo García on 01-22-2023 Cholesterol in VLDL [Mass/Vol] 38 mg/dL 5-40 [facility] Serum or plasma creatinine m easurement (mass/volume)Ordered By: Gerardo García 01-22-2023 Creatinine [Mass/Vol] 2.09 mg/dL 0.55-1.02 [facility] Comment on above: The validity of the calculated GFR & GFRAA in patients over 70 years has not been determined. Clinical correlation is essential. Serum or plasma low density lipoprotein (LDL) cholesterol measurement (mass/volume)Ordered By: Gerardo García on 01-22-2023 Cholesterol in LDL [Mass/Vol] 139 mg/dL 0-130 [facility] Serum or plasma urea nitroge n measurement (mass/volume)Ordered By: Gerardo García on 01-22-2023 Urea nitrogen [Mass/Vol] 31 mg/dL 7-18 [facility] Thin prep Papanicolaou smear with manual screeningOrdered By: Gerrado García on 01-22-2023 Thin prep Papanicolaou smear with manual screening 15 U/L 15-37 [facility] Thin prep Papanicolaou smear with manual screening 8 5-15 [facility] Anaerobic cultureOrdered By: Eden Schroeder on 01-06-2023 Bacteria identified Anaer cx Nom (Unsp spec) No anaerobic bacteria isolated. [facility] Bacteria identified Cx Nom ( Wound)Ordered By: Eden Schroeder on 01-04-2023 Wound Culture Meth. resistant Stap h. aureus [facility] Culture, urineOrdered By: Dr Javy García on 01-03-2023 Bacteria identified Cx Nom (U) Mixed Gram Pos & Gram Neg Org [facility] COVID-19 virus antigen assay Ordered By: Dr. García on 01-02-2023 SARS-CoV-2 (COVID-19) Ag IA.rapid Ql (Resp) Not detected Not Detect [facility] Comment on above: Normal Reference Ran ge: Not DetectedMethod:(RT-PCR) real-time reverse transcriptase PCRLuminex Etubics Instrument*The Food and Drug Administration (FDA) has [...] Microscopic observation Gram stain Nom (Unsp spec) [facility] No Panel InformationOrdered By: Dr. García on 01-02-2023 Influenza Types A,B Direct FA (LEVI) [facility] RSV Ag EIAOrdered By: Dr. Saúl guerra on 01-02-2023 RSV Ag Immune stain Ql (Tiss) [facility] Basophil percentageOrdered B y: Dr. Matthews on 12-05-2022 Basophil percentage 3.4 mg/dL 2.5-4.9 [facility] Chloride [Moles/Vol] 107 mmol/L 98-107 [facility] Glucose [Mass/Vol] 103 mg/dL 74-106 [facility] Comment on above: Fasting Glucose resu lt from 100 to 125 mg/dL suggests IMPAIRED HOMEOSTASIS per A.D.A. criteria. Potassium [Moles/Vol] 4.0 mmol/L 3.5-5.1 [facility] Sodium [Moles/Vol] 139 mmol/L 136-145 [facility] Laboratory - Chemistry and C hemistry - challengeOrdered By: Dr. Matthews on 12-05-2022 CO2 [Moles/Vol] 28.0 mmol/L 21.0-32.0 [facility] Urea nitrogen/Creatinine [Mass ratio] 8.1 mg/mg 10-20 [facility] No Panel InformationOrdered By: Dr. Matthews on 12-05-2022 Estimated GFR (MDRD) Amer 34 mL/min >60 [facility] Comment on above: GFR Calc Estimated GFR (MDRD) Non-Af Amer 28 mL/min >60 [facility] Comment on above: Non- GFR Calc Parathyroid Hormone (Intact) 159.4 pg/mL 18.4-80.1 [facility] Vitamin D 25-Hydroxy 47.4 ng/mL [facility] Comment on above: Vitamin D 25(OH) Sta tus Range Deficiency <20 ng/mL (50nmol/L) Insufficiency 20 - 30 ng/mL (50 - 75 nmol/L) Sufficiency 30 - 100 ng/mL (75 - 250 nmol/L) Toxicity >100 ng/mL (>250 nmol/L) Serum or plasma albumin yunior urement (mass/volume)Ordered By: Dr. Matthews on 12-05-2022 Albumin [Mass/Vol] 2.8 g/dL 3.2-5.0 [facility] Serum or plasma calcium yunior urement (mass/volume)Ordered By: Dr. Matthews on 12-05-2022 Calcium [Mass/Vol] 8.7 mg/dL 8.5-10.1 [facility] Serum or plasma creatinine m easurement (mass/volume)Ordered By: Dr. Matthews on 12-05-2022 Creatinine [Mass/Vol] 1.86 mg/dL 0.55-1.02 [facility] Comment on above: The validity of the calculated GFR & GFRAA in patients over 70 years has not been determined. Clinical correlation is essential. Serum or plasma urea nitroge n measurement (mass/volume)Ordered By: Dr. Matthews on 12-05-2022 Urea nitrogen [Mass/Vol] 15 mg/dL 7-18 [facility] Culture, urineOrdered By: Dr Javy Strickland on 11-01-2022 Bacteria identified Cx Nom (U) Pseudomonas aeroginosa [facility] Absolute lymphocyte countOrd ered By: Dr. García on 10-30-2022 Lymphocytes Auto (Unsp spec) [#/Vol] 8.75 10*3/uL 0.83-4.51 [facility] Basophil percentageOrdered B y: Dr. García on 10-30-2022 Basophils/100 WBC (Bld) 0.1 % 0-1 [facility] Bilirubin [Mass/Vol] 0.70 mg/dL 0.20-1.00 [facility] Comment on above: For patients on eltr ombopag therapy, use of Dimension Howard TBIL is not recommended. Chloride [Moles/Vol] 106 mmol/L 98-107 [facility] Cholesterol [Mass/Vol] 223 mg/dL <200 [facility] Comment on above: <200 mg/dL Desirable 200-240 mg/dL Borderline >240 mg/dL High Risk Eosinophils/100 WBC (Bld) 0.3 % 0-5 [facility] Glucose [Mass/Vol] 97 mg/dL 74-106 [facility] Neutrophils (Bld) [#/Vol] 12.8 10*3/uL 2.0-7.7 [facility] Neutrophils/100 WBC (Bld) 53.6 % 47-70 [facility] Potassium [Moles/Vol] 3.3 mmol/L 3.5-5.1 [facility] Protein [Mass/Vol] 8.1 g/dL 6.4-8.2 [facility] Sodium [Moles/Vol] 139 mmol/L 136-145 [facility] Triglyceride [Mass/Vol] 196 mg/dL <199 [facility] Comment on above: The drugs N-Acetylcy steine and Metamizole may falsely depress this assay.Serum Triglycerides Reference Interval Normal <150 mg/dL Borderline high 150 - 199 mg/dL High 200 - 499 mg/dL Very High > or = 500 mg/dL WBC (Bld) [#/Vol] 23.9 10*3/uL 4.4-11.0 [facility] Blood erythrocytes count (nu mber/volume)Ordered By: Dr. García on 10-30-2022 RBC (Bld) [#/Vol] 4.84 10*6/uL 4.2-5.4 [facility] Blood hemoglobin measurement (mass/volume)Ordered By: Dr. García on 10-30-2022 Hemoglobin (Bld) [Mass/Vol] 15.5 g/dL 12.0-15.0 [facility] Blood lymphocytes/100 leukoc ytesOrdered By: Dr. García on 10-30-2022 Lymphocytes/100 WBC (Bld) 36.6 % 19-41 [facility] Blood manual differential co mment interpretation (narrative result)Ordered By: Dr. García on 10-30-2022 Manual differential comment Pollo (Bld) [Interp] SCANNED [facility] Blood monocytes/100 leukocyt esOrdered By: Dr. García on 10-30-2022 Monocytes/100 WBC (Bld) 6.2 % 0-10 [facility] Blood platelet mean volumeOr dered By: Dr. García on 10-30-2022 Platelet mean volume (Bld) [Entitic vol] 10.2 fL 6.2-12.0 [facility] Determination of erythrocyte mean corpuscular volume (MCV)Ordered By: Dr. García on 10-30-2022 MCV (RBC) [Entitic vol] 101.2 fL 81-99 [facility] Hematocrit Auto (Bld) [Volum e fraction]Ordered By: Dr. García on 10-30-2022 Hematocrit (Bld) [Volume fraction] 49.0 % 37-47 [facility] Laboratory - Chemistry and C hemistry - challengeOrdered By: Dr. García on 10-30-2022 ALP [Catalytic activity/Vol] 96 U/L 45-117 [facility] ALT [Catalytic activity/Vol] 25 U/L 13-56 [facility] CO2 [Moles/Vol] 24.0 mmol/L 21.0-32.0 [facility] Globulin (S) [Mass/Vol] 5.0 g/dL 2.2-4.2 [facility] Urea nitrogen/Creatinine [Mass ratio] 15.2 mg/mg 10-20 [facility] Laboratory - Hematology and Cell countsOrdered By: Dr. García on 10-30-2022 Erythrocyte distribution width (RBC) [Entitic vol] 55.8 fL 35.1-43.9 [facility] Erythrocyte distribution width (RBC) [Ratio] 14.7 % 11.6-14.6 [facility] Immature granulocytes/100 WBC (Bld) 3.200 % 0.0-0.9 [facility] Comment on above: IG% - Immature Granu locytes (promyelocytes, myelocytes and metamyelocytes) > 1% indicates that a LEFT SHIFT is Present. MCH (RBC) [Entitic mass] 32.0 pg 27.0-32.0 [facility] Nucleated RBC/100 WBC (Bld) [Ratio] 0 % 0-5 [facility] MCHC Auto (RBC) [Mass/Vol]Or dered By: Dr. García on 10-30-2022 MCHC (RBC) [Mass/Vol] 31.6 g/dL 32-36 [facility] No Panel InformationOrdered By: Dr. García on 10-30-2022 Estimated GFR (MDRD) Amer 32 mL/min >60 [facility] Comment on above: GFR Calc Estimated GFR (MDRD) Non-Af Amer 27 mL/min >60 [facility] Comment on above: Non- GFR Calc Thyroid Stimulating Hormone (TSH) 2.88 uIU/mL 0.358-3.74 [facility] Vitamin D 25-Hydroxy 37.2 ng/mL [facility] Comment on above: Vitamin D 25(OH) Sta tus Range Deficiency <20 ng/mL (50nmol/L) Insufficiency 20 - 30 ng/mL (50 - 75 nmol/L) Sufficiency 30 - 100 ng/mL (75 - 250 nmol/L) Toxicity >100 ng/mL (>250 nmol/L) Platelets bldOrdered By: Dr. García on 10-30-2022 Platelets (Bld) [#/Vol] 408 10*3/uL 150-450 [facility] Serum or plasma albumin yunior urement (mass/volume)Ordered By: Dr. García on 10-30-2022 Albumin [Mass/Vol] 3.1 g/dL 3.2-5.0 [facility] Serum or plasma albumin/glob ulin mass ratioOrdered By: Dr. García on 10-30-2022 Albumin/Globulin [Mass ratio] 0.6 {ratio} 0.9-2.4 [facility] Serum or plasma calcium yunior urement (mass/volume)Ordered By: Dr. García on 10-30-2022 Calcium [Mass/Vol] 8.7 mg/dL 8.5-10.1 [facility] Serum or plasma cholesterol in HDL measurement (mass/volume)Ordered By: Dr. García on 10-30-2022 Cholesterol in HDL [Mass/Vol] 46 mg/dL >40 [facility] Comment on above: The drugs N-Acetylcy steine and Metamizole may falsely depress this assay. Reference Range HDL <40 mg/dL Low HDL Cholesterol HDL >or= 60 mg/dL High HDL Cholesterol Serum or plasma cholesterol in VLDL measurement (mass/volume)Ordered By: Dr. García on 10-30-2022 Cholesterol in VLDL [Mass/Vol] 39 mg/dL 5-40 [facility] Serum or plasma creatinine m easurement (mass/volume)Ordered By: Dr. García on 10-30-2022 Creatinine [Mass/Vol] 1.97 mg/dL 0.55-1.02 [facility] Comment on above: The validity of the calculated GFR & GFRAA in patients over 70 years has not been determined. Clinical correlation is essential. Serum or plasma low density lipoprotein (LDL) cholesterol measurement (mass/volume)Ordered By: Dr. García on 10-30-2022 Cholesterol in LDL [Mass/Vol] 138 mg/dL 0-130 [facility] Serum or plasma urea nitroge n measurement (mass/volume)Ordered By: Dr. García on 10-30-2022 Urea nitrogen [Mass/Vol] 30 mg/dL 7-18 [facility] Thin prep Papanicolaou smear with manual screeningOrdered By: Dr. García on 10-30-2022 Thin prep Papanicolaou smear with manual screening 15 U/L 15-37 [facility] Thin prep Papanicolaou smear with manual screening 9 5-15 [facility] Laboratory - Microbiology an d Antimicrobial susceptibilityOrdered By: Dr. García on 10-27-2022 SARS-CoV-2 (COVID-19) RNA BOBBI+probe Ql (Unsp spec) Not detected Not Detect [facility] Comment on above: Normal Reference Ran ge: [...] 10-27-2022 Influenza Types A,B Direct FA (LEVI) [facility] RSV Ag EIAOrdered By: Dr. Saúl guerra on 10-27-2022 RSV Ag Immune stain Ql (Tiss) [facility] Laboratory - Microbiology an d Antimicrobial susceptibilityOrdered By: Dr. García on 10-02-2022 SARS-CoV-2 (COVID-19) RNA BOBBI+probe Ql (Unsp spec) Not detected Not Detect [facility] [facility] Comment on above: Normal Reference Ran ge: [...] 10-02-2022 Influenza Types A,B Direct FA (LEVI) [facility] RSV Ag EIAOrdered By: Dr. Saúl guerra on 10-02-2022 RSV Ag Immune stain Ql (Tiss) [facility] No Panel InformationOrdered By: Dr. Matthews on 08-28-2022 Parathyroid Hormone (Intact) 153.9 pg/mL 18.4-80.1 [facility] Absolute lymphocyte counton 08-03-2022 Lymphocytes Auto (Unsp spec) [#/Vol] 4.56 10*3/uL 0.83-4.51 [facility] Work Phone: Basophil percentageon 2021 Basophils/100 WBC (Bld) 0.4 % 0-1 [facility] Work Phone: Bilirubin [Mass/Vol] 0.60 mg/dL 0.20-1.00 [facility] Work Phone: Comment on above: For patients on eltr ombopag therapy, use of Dimension Howard TBIL is not recommended. Chloride [Moles/Vol] 110 mmol/L 98-107 [facility] Work Phone: Cholesterol [Mass/Vol] 150 mg/dL <200 [facility] Work Phone: Comment on above: <200 mg/dL Desirable 200-240 mg/dL Borderline >240 mg/dL High Risk Eosinophils/100 WBC (Bld) 0.6 % 0-5 [facility] Work Phone: Glucose [Mass/Vol] 96 mg/dL 74-106 [facility] Work Phone: Neutrophils (Bld) [#/Vol] 8.8 10*3/uL 2.0-7.7 [facility] Work Phone: Neutrophils/100 WBC (Bld) 61.4 % 47-70 [facility] Work Phone: Potassium [Moles/Vol] 4.2 mmol/L 3.5-5.1 [facility] Work Phone: Protein [Mass/Vol] 6.9 g/dL 6.4-8.2 [facility] Work Phone: Sodium [Moles/Vol] 139 mmol/L 136-145 [facility] Work Phone: [phone] Triglyceride [Mass/Vol] 191 mg/dL <199 [facility] Work Phone: [phone] Comment on above: The drugs N-Acetylcy steine and Metamizole may falsely depress this assay.Serum Triglycerides Reference Interval Normal <150 mg/dL Borderline high 150 - 199 mg/dL High 200 - 499 mg/dL Very High > or = 500 mg/dL WBC (Bld) [#/Vol] 14.4 10*3/uL 4.4-11.0 [facility] Work Phone: Blood erythrocytes count (nu mber/volume)on 08-03-2022 RBC (Bld) [#/Vol] 4.10 10*6/uL 4.2-5.4 [facility] Work Phone: Blood hemoglobin measurement (mass/volume)on 08-03-2022 Hemoglobin (Bld) [Mass/Vol] 13.4 g/dL 12.0-15.0 [facility] Work Phone: Blood lymphocytes/100 leukoc yteson 08-03-2022 Lymphocytes/100 WBC (Bld) 31.7 % 19-41 [facility] Work Phone: Blood monocytes/100 leukocyt eson 08-03-2022 Monocytes/100 WBC (Bld) 5.3 % 0-10 [facility] Work Phone: Blood platelet mean volumeon 08-03-2022 Platelet mean volume (Bld) [Entitic vol] 10.2 fL 6.2-12.0 [facility] Work Phone: Determination of erythrocyte mean corpuscular volume (MCV)on 08-03-2022 MCV (RBC) [Entitic vol] 99.0 fL 81-99 [facility] Work Phone: Hematocrit Auto (Bld) [Volum e fraction]on 08-03-2022 Hematocrit (Bld) [Volume fraction] 40.6 % 37-47 [facility] Work Phone: [phone] Laboratory - Chemistry and C hemistry - challengeon 08-03-2022 ALP [Catalytic activity/Vol] 87 U/L 45-117 [facility] Work Phone: [phone] ALT [Catalytic activity/Vol] 11 U/L 13-56 [facility] Work Phone: [phone] CO2 [Moles/Vol] 21.0 mmol/L 21.0-32.0 [facility] Work Phone: Globulin (S) [Mass/Vol] 4.7 g/dL 2.2-4.2 [facility] Work Phone: [phone] Urea nitrogen/Creatinine [Mass ratio] 6.3 mg/mg 10-20 [facility] Work Phone: Laboratory - Hematology and Cell countson 08-03-2022 Erythrocyte distribution width (RBC) [Entitic vol] 55.6 fL 35.1-43.9 [facility] Work Phone: [phone] Erythrocyte distribution width (RBC) [Ratio] 15.2 % 11.6-14.6 [facility] Work Phone: [phone] Immature granulocytes/100 WBC (Bld) 0.600 % 0.0-0.9 [facility] Work Phone: Comment on above: IG% - Immature Granu locytes (promyelocytes, myelocytes and metamyelocytes) > 1% indicates that a LEFT SHIFT is Present. MCH (RBC) [Entitic mass] 32.7 pg 27.0-32.0 [facility] Work Phone: [phone] Nucleated RBC/100 WBC (Bld) [Ratio] 0 % 0-5 [facility] Work Phone: MCHC Auto (RBC) [Mass/Vol]on 08-03-2022 MCHC (RBC) [Mass/Vol] 33.0 g/dL 32-36 [facility] Work Phone: No Panel Informationon 08-03 Estimated GFR (MDRD) Amer 42 mL/min >60 [facility] Work Phone: Comment on above: GFR Calc Estimated GFR (MDRD) Non-Af Amer 34 mL/min >60 [facility] Work Phone: Comment on above: Non- GFR Calc Thyroid Stimulating Hormone (TSH) 3.69 uIU/mL 0.358-3.74 [facility] Work Phone: Vitamin D 25-Hydroxy 31.9 ng/mL [facility] Work Phone: Comment on above: Vitamin D 25(OH) Sta tus Range Deficiency <20 ng/mL (50nmol/L) Insufficiency 20 - 30 ng/mL (50 - 75 nmol/L) Sufficiency 30 - 100 ng/mL (75 - 250 nmol/L) Toxicity >100 ng/mL (>250 nmol/L) Platelets bldon 08-03-2022 Platelets (Bld) [#/Vol] 291 10*3/uL 150-450 [facility] Work Phone: Serum or plasma albumin yunior urement (mass/volume)on 08-03-2022 Albumin [Mass/Vol] 2.2 g/dL 3.2-5.0 [facility] Work Phone: Serum or plasma albumin/glob ulin mass ratioon 08-03-2022 Albumin/Globulin [Mass ratio] 0.5 {ratio} 0.9-2.4 [facility] Work Phone: Serum or plasma calcium yunior urement (mass/volume)on 08-03-2022 Calcium [Mass/Vol] 8.4 mg/dL 8.5-10.1 [facility] Work Phone: Serum or plasma cholesterol in HDL measurement (mass/volume)on 08-03-2022 Cholesterol in HDL [Mass/Vol] 28 mg/dL >40 [facility] Work Phone: Comment on above: The drugs N-Acetylcy steine and Metamizole may falsely depress this assay. Reference Range HDL <40 mg/dL Low HDL Cholesterol HDL >or= 60 mg/dL High HDL Cholesterol Serum or plasma cholesterol in VLDL measurement (mass/volume)on 08-03-2022 Cholesterol in VLDL [Mass/Vol] 38 mg/dL 5-40 [facility] Work Phone: Serum or plasma creatinine m easurement (mass/volume)on 08-03-2022 Creatinine [Mass/Vol] 1.58 mg/dL 0.55-1.02 [facility] Work Phone: Comment on above: The validity of the calculated GFR & GFRAA in patients over 70 years has not been determined. Clinical correlation is essential. Serum or plasma low density lipoprotein (LDL) cholesterol measurement (mass/volume)on 08-03-2022 Cholesterol in LDL [Mass/Vol] 84 mg/dL 0-130 [facility] Work Phone: Serum or plasma urea nitroge n measurement (mass/volume)on 08-03-2022 Urea nitrogen [Mass/Vol] 10 mg/dL 7-18 [facility] Work Phone: Thin prep Papanicolaou smear with manual screeningon 08-03-2022 Thin prep Papanicolaou smear with manual screening 12 U/L 15-37 [facility] Work Phone: Thin prep Papanicolaou smear with manual screening 8 5-15 [facility] Work Phone: Absolute lymphocyte counton 08-01-2022 Lymphocytes Auto (Unsp spec) [#/Vol] 2.54 10*3/uL 0.83-4.51 [facility] Work Phone: Basophil percentageon 2021 Basophils/100 WBC (Bld) 0.4 % 0-1 [facility] Work Phone: Bilirubin [Mass/Vol] 0.40 mg/dL 0.20-1.00 [facility] Work Phone: Comment on above: For patients on eltr ombopag therapy, use of Dimension Howard TBIL is not recommended. Chloride [Moles/Vol] 118 mmol/L 98-107 [facility] Work Phone: Eosinophils/100 WBC (Bld) 0.8 % 0-5 [facility] Work Phone: Glucose [Mass/Vol] 89 mg/dL 74-106 [facility] Work Phone: Neutrophils (Bld) [#/Vol] 6.4 10*3/uL 2.0-7.7 [facility] Work Phone: Neutrophils/100 WBC (Bld) 67.1 % 47-70 [facility] Work Phone: Potassium [Moles/Vol] 3.8 mmol/L 3.5-5.1 [facility] Work Phone: Protein [Mass/Vol] 5.7 g/dL 6.4-8.2 [facility] Work Phone: Sodium [Moles/Vol] 144 mmol/L 136-145 [facility] Work Phone: WBC (Bld) [#/Vol] 9.5 10*3/uL 4.4-11.0 [facility] Work Phone: Blood erythrocytes count (nu mber/volume)on 08-01-2022 RBC (Bld) [#/Vol] 3.68 10*6/uL 4.2-5.4 [facility] Work Phone: Blood hemoglobin measurement (mass/volume)on 08-01-2022 Hemoglobin (Bld) [Mass/Vol] 11.9 g/dL 12.0-15.0 [facility] Work Phone: Blood lymphocytes/100 leukoc yteson 08-01-2022 Lymphocytes/100 WBC (Bld) 26.7 % 19-41 [facility] Work Phone: Blood monocytes/100 leukocyt eson 08-01-2022 Monocytes/100 WBC (Bld) 4.1 % 0-10 [facility] Work Phone: Blood platelet mean volumeon 08-01-2022 Platelet mean volume (Bld) [Entitic vol] 9.9 fL 6.2-12.0 [facility] Work Phone: Determination of erythrocyte mean corpuscular volume (MCV)on 08-01-2022 MCV (RBC) [Entitic vol] 101.1 fL 81-99 [facility] Work Phone: Hematocrit Auto (Bld) [Volum e fraction]on 08-01-2022 Hematocrit (Bld) [Volume fraction] 37.2 % 37-47 [facility] Work Phone: [phone] Laboratory - Chemistry and C hemistry - challengeon 08-01-2022 ALP [Catalytic activity/Vol] 61 U/L 45-117 [facility] Work Phone: ALT [Catalytic activity/Vol] 7 U/L 13-56 [facility] Work Phone: CO2 [Moles/Vol] 18.0 mmol/L 21.0-32.0 [facility] Work Phone: Globulin (S) [Mass/Vol] 4.0 g/dL 2.2-4.2 [facility] Work Phone: Urea nitrogen/Creatinine [Mass ratio] 8.8 mg/mg 10-20 [facility] Work Phone: Laboratory - Hematology and Cell countson 08-01-2022 Erythrocyte distribution width (RBC) [Entitic vol] 57.3 fL 35.1-43.9 [facility] Work Phone: Erythrocyte distribution width (RBC) [Ratio] 15.2 % 11.6-14.6 [facility] Work Phone: Immature granulocytes/100 WBC (Bld) 0.900 % 0.0-0.9 [facility] Work Phone: Comment on above: IG% - Immature Granu locytes (promyelocytes, myelocytes and metamyelocytes) > 1% indicates that a LEFT SHIFT is Present. MCH (RBC) [Entitic mass] 32.3 pg 27.0-32.0 [facility] Work Phone: Nucleated RBC/100 WBC (Bld) [Ratio] 0 % 0-5 [facility] Work Phone: MCHC Auto (RBC) [Mass/Vol]on 08-01-2022 MCHC (RBC) [Mass/Vol] 32.0 g/dL 32-36 [facility] Work Phone: No Panel Informationon 08-01 Estimated Creatinine Clearance Calc 31.32 ml/min [facility] Work Phone: Estimated GFR (MDRD) Amer 38 mL/min >60 [facility] Work Phone: Comment on above: GFR Calc Estimated GFR (MDRD) Non-Af Amer 31 mL/min >60 [facility] Work Phone: Comment on above: Non- GFR Calc Platelets bldon 08-01-2022 Platelets (Bld) [#/Vol] 194 10*3/uL 150-450 [facility] Work Phone: Serum or plasma albumin yunior urement (mass/volume)on 08-01-2022 Albumin [Mass/Vol] 1.7 g/dL 3.2-5.0 [facility] Work Phone: Serum or plasma albumin/glob ulin mass ratioon 08-01-2022 Albumin/Globulin [Mass ratio] 0.4 {ratio} 0.9-2.4 [facility] Work Phone: Serum or plasma calcium yunior urement (mass/volume)on 08-01-2022 Calcium [Mass/Vol] 7.7 mg/dL 8.5-10.1 [facility] Work Phone: Serum or plasma creatinine m easurement (mass/volume)on 08-01-2022 Creatinine [Mass/Vol] 1.71 mg/dL 0.55-1.02 [facility] Work Phone: Comment on above: The validity of the calculated GFR & GFRAA in patients over 70 years has not been determined. Clinical correlation is essential. Serum or plasma urea nitroge n measurement (mass/volume)on 08-01-2022 Urea nitrogen [Mass/Vol] 15 mg/dL 7-18 [facility] Work Phone: Thin prep Papanicolaou smear with manual screeningon 08-01-2022 Thin prep Papanicolaou smear with manual screening 7 U/L 15-37 [facility] Work Phone: Thin prep Papanicolaou smear with manual screening 8 5-15 [facility] Work Phone: Basophil percentageon 2021 Basophil percentage 3.3 mg/dL 2.5-4.9 [facility] Work Phone: Laboratory - Chemistry and C hemistry - challengeon 07-31-2022 Magnesium [Mass/Vol] 1.7 mg/dL 1.6-2.6 [facility] Work Phone: Basophil percentageon 2021 Lactate [Moles/Vol] 1.2 mmol/L 0.4-2.0 [facility] Work Phone: Basophil percentageon 2021 Basophil percentage 25-50 SEEN /hpf 0-5 [facility] Work Phone: Bilirubin Test strip Ql (U)o n 07-29-2022 Bilirubin Ql (U) Negative Negative [facility] Work Phone: Blood manual differential co mment interpretation (narrative result)on 07-29-2022 Manual differential comment Pollo (Bld) [Interp] SCANNED [facility] Work Phone: Comment on above: NEUTROPHILIA NOTED Ketones Test strip Ql (U)on 07-29-2022 Ketones Ql (U) Negative Negative [facility] Work Phone: Mucus LM Ql (Urine sed)on Mucus Ql (Urine sed) 0 SEEN /hpf [facility] Work Phone: Nitrite Test strip Ql (U)on 07-29-2022 Nitrite Ql (U) Negative Negative [facility] Work Phone: Protein Test strip Ql (U)on 07-29-2022 Protein Ql (U) 500 mg/dl Negative [facility] Work Phone: Squamous epithelial cells de tection in urine sediment by light microscopyon 07-29-2022 Epithelial cells.squamous LM Ql (Urine sed) 0-5 SEEN /hpf 5-10 [facility] Work Phone: Urine blood detectionon 07-20 RBC Ql (U) 250 /ul Negative [facility] Work Phone: RBC Ql (U) 5-10 SEEN /hpf 0-5 [facility] Work Phone: Urine clarityon 07-29-2022 Clarity (U) Clear Clear [facility] Work Phone: [phone] Urine color determinationon 07-29-2022 Color (U) Yellow Yellow [facility] Work Phone: Urine glucose detectionon Glucose Ql (U) Normal mg/dl Normal [facility] Work Phone: Urine leukocyte esterase det ection by dipstickon 07-29-2022 Leukocyte esterase Test strip Ql (U) 500 /ul Negative [facility] Work Phone: Urine pHon 07-29-2022 pH (U) 6.5 [pH] 5.0 - 8.0 [facility] Work Phone: Urine sediment bacteria coun t by microscopy (number/high power field)on 07-29-2022 Bacteria LM.HPF (Urine sed) [#/Area] 1 /[HPF] None Seen [facility] Work Phone: Urine specific gravity measu rementon 07-29-2022 Specific gravity (U) [Rel density] 1.010 1.002-1.03 0 [facility] Work Phone: Urobilinogen Auto test strip Ql (U)on 07-29-2022 Urobilinogen Ql (U) Normal mg/dl Normal [facility] Work Phone: Basophil percentageon 2021 Basophil percentage 3.2 mg/dL 2.5-4.9 [facility] Work Phone: [phone] Chloride [Moles/Vol] 107 mmol/L 98-107 [facility] Work Phone: [phone] Glucose [Mass/Vol] 100 mg/dL 74-106 [facility] Work Phone: Comment on above: Fasting Glucose resu lt from 100 to 125 mg/dL suggests IMPAIRED HOMEOSTASIS per A.D.A. criteria. Potassium [Moles/Vol] 3.9 mmol/L 3.5-5.1 [facility] Work Phone: Sodium [Moles/Vol] 141 mmol/L 136-145 [facility] Work Phone: WBC (Bld) [#/Vol] 13.8 10*3/uL 4.4-11.0 [facility] Work Phone: Blood erythrocytes count (nu mber/volume)on 07-21-2022 RBC (Bld) [#/Vol] 4.69 10*6/uL 4.2-5.4 [facility] Work Phone: Blood hemoglobin measurement (mass/volume)on 07-21-2022 Hemoglobin (Bld) [Mass/Vol] 15.3 g/dL 12.0-15.0 [facility] Work Phone: Blood platelet mean volumeon 07-21-2022 Platelet mean volume (Bld) [Entitic vol] 9.9 fL 6.2-12.0 [facility] Work Phone: Determination of erythrocyte mean corpuscular volume (MCV)on 07-21-2022 MCV (RBC) [Entitic vol] 99.8 fL 81-99 [facility] Work Phone: Hematocrit Auto (Bld) [Volum e fraction]on 07-21-2022 Hematocrit (Bld) [Volume fraction] 46.8 % 37-47 [facility] Work Phone: Laboratory - Chemistry and C hemistry - challengeon 07-21-2022 CO2 [Moles/Vol] 25.0 mmol/L 21.0-32.0 [facility] Work Phone: Urea nitrogen/Creatinine [Mass ratio] 11.4 mg/mg 10-20 [facility] Work Phone: Laboratory - Hematology and Cell countson 07-21-2022 Erythrocyte distribution width (RBC) [Entitic vol] 52.1 fL 35.1-43.9 [facility] Work Phone: Erythrocyte distribution width (RBC) [Ratio] 14.2 % 11.6-14.6 [facility] Work Phone: MCH (RBC) [Entitic mass] 32.6 pg 27.0-32.0 [facility] Work Phone: MCHC Auto (RBC) [Mass/Vol]on 07-21-2022 MCHC (RBC) [Mass/Vol] 32.7 g/dL 32-36 [facility] Work Phone: No Panel Informationon 07-21 Estimated GFR (MDRD) Amer 35 mL/min >60 [facility] Work Phone: Comment on above: GFR Calc Estimated GFR (MDRD) Non-Af Amer 29 mL/min >60 [facility] Work Phone: Comment on above: Non- GFR Calc Parathyroid Hormone (Intact) 217.2 pg/mL 18.4-80.1 [facility] Work Phone: Platelets bldon 07-21-2022 Platelets (Bld) [#/Vol] 327 10*3/uL 150-450 [facility] Work Phone: Serum or plasma albumin yunior urement (mass/volume)on 07-21-2022 Albumin [Mass/Vol] 2.8 g/dL 3.2-5.0 [facility] Work Phone: Serum or plasma calcium yunior urement (mass/volume)on 07-21-2022 Calcium [Mass/Vol] 8.5 mg/dL 8.5-10.1 [facility] Work Phone: Serum or plasma creatinine m easurement (mass/volume)on 07-21-2022 Creatinine [Mass/Vol] 1.85 mg/dL 0.55-1.02 [facility] Work Phone: Comment on above: The validity of the calculated GFR & GFRAA in patients over 70 years has not been determined. Clinical correlation is essential. Serum or plasma urea nitroge n measurement (mass/volume)on 07-21-2022 Urea nitrogen [Mass/Vol] 21 mg/dL 7-18 [facility] Work Phone: Absolute lymphocyte counton 07-04-2022 Lymphocytes Auto (Unsp spec) [#/Vol] 7.15 10*3/uL 0.83-4.51 [facility] Work Phone: Basophil percentageon 2021 Basophils/100 WBC (Bld) 0.5 % 0-1 [facility] Work Phone: Bilirubin [Mass/Vol] 0.50 mg/dL 0.20-1.00 [facility] Work Phone: Comment on above: For patients on eltr ombopag therapy, use of Dimension Howard TBIL is not recommended. Chloride [Moles/Vol] 109 mmol/L 98-107 [facility] Work Phone: Eosinophils/100 WBC (Bld) 0.7 % 0-5 [facility] Work Phone: Glucose [Mass/Vol] 104 mg/dL 74-106 [facility] Work Phone: Comment on above: Fasting Glucose resu lt from 100 to 125 mg/dL suggests IMPAIRED HOMEOSTASIS per A.D.A. criteria. Neutrophils (Bld) [#/Vol] 8.1 10*3/uL 2.0-7.7 [facility] Work Phone: [phone] Neutrophils/100 WBC (Bld) 48.9 % 47-70 [facility] Work Phone: [phone] Potassium [Moles/Vol] 3.8 mmol/L 3.5-5.1 [facility] Work Phone: [phone] Protein [Mass/Vol] 7.4 g/dL 6.4-8.2 [facility] Work Phone: [phone] Sodium [Moles/Vol] 139 mmol/L 136-145 [facility] Work Phone: [phone] WBC (Bld) [#/Vol] 16.6 10*3/uL 4.4-11.0 [facility] Work Phone: [phone] Blood erythrocytes count (nu mber/volume)on 07-04-2022 RBC (Bld) [#/Vol] 4.69 10*6/uL 4.2-5.4 [facility] Work Phone: [phone] Blood hemoglobin measurement (mass/volume)on 07-04-2022 Hemoglobin (Bld) [Mass/Vol] 15.1 g/dL 12.0-15.0 [facility] Work Phone: [phone] Blood lymphocytes/100 leukoc yteson 07-04-2022 Lymphocytes/100 WBC (Bld) 43.0 % 19-41 [facility] Work Phone: [phone] Blood manual differential co mment interpretation (narrative result)on 07-04-2022 Manual differential comment Pollo (Bld) [Interp] COMMENT [facility] Work Phone: Comment on above: LYMPHOCYTOSIS. Blood monocytes/100 leukocyt eson 07-04-2022 Monocytes/100 WBC (Bld) 6.4 % 0-10 [facility] Work Phone: [phone] Blood platelet mean volumeon 07-04-2022 Platelet mean volume (Bld) [Entitic vol] 9.4 fL 6.2-12.0 [facility] Work Phone: Determination of erythrocyte mean corpuscular volume (MCV)on 07-04-2022 MCV (RBC) [Entitic vol] 98.7 fL 81-99 [facility] Work Phone: Hematocrit Auto (Bld) [Volum e fraction]on 07-04-2022 Hematocrit (Bld) [Volume fraction] 46.3 % 37-47 [facility] Work Phone: [phone] Laboratory - Chemistry and C hemistry - challengeon 07-04-2022 ALP [Catalytic activity/Vol] 82 U/L 45-117 [facility] Work Phone: ALT [Catalytic activity/Vol] 12 U/L 13-56 [facility] Work Phone: CO2 [Moles/Vol] 25.0 mmol/L 21.0-32.0 [facility] Work Phone: [phone] Globulin (S) [Mass/Vol] 4.7 g/dL 2.2-4.2 [facility] Work Phone: Urea nitrogen/Creatinine [Mass ratio] 7.5 mg/mg 10-20 [facility] Work Phone: Laboratory - Hematology and Cell countson 07-04-2022 Erythrocyte distribution width (RBC) [Entitic vol] 51.2 fL 35.1-43.9 [facility] Work Phone: Erythrocyte distribution width (RBC) [Ratio] 14.3 % 11.6-14.6 [facility] Work Phone: Immature granulocytes/100 WBC (Bld) 0.500 % 0.0-0.9 [facility] Work Phone: [phone] Comment on above: IG% - Immature Granu locytes (promyelocytes, myelocytes and metamyelocytes) > 1% indicates that a LEFT SHIFT is Present. MCH (RBC) [Entitic mass] 32.2 pg 27.0-32.0 [facility] Work Phone: [phone] Nucleated RBC/100 WBC (Bld) [Ratio] 0 % 0-5 [facility] Work Phone: MCHC Auto (RBC) [Mass/Vol]on 07-04-2022 MCHC (RBC) [Mass/Vol] 32.6 g/dL 32-36 [facility] Work Phone: No Panel Informationon 07-04 Estimated GFR (MDRD) Amer 34 mL/min >60 [facility] Work Phone: Comment on above: GFR Calc Estimated GFR (MDRD) Non-Af Amer 28 mL/min >60 [facility] Work Phone: Comment on above: Non- GFR Calc Platelets bldon 07-04-2022 Platelets (Bld) [#/Vol] 321 10*3/uL 150-450 [facility] Work Phone: Serum or plasma albumin yunior urement (mass/volume)on 07-04-2022 Albumin [Mass/Vol] 2.7 g/dL 3.2-5.0 [facility] Work Phone: Serum or plasma albumin/glob ulin mass ratioon 07-04-2022 Albumin/Globulin [Mass ratio] 0.6 {ratio} 0.9-2.4 [facility] Work Phone: Serum or plasma calcium yunior urement (mass/volume)on 07-04-2022 Calcium [Mass/Vol] 8.6 mg/dL 8.5-10.1 [facility] Work Phone: Serum or plasma creatinine m easurement (mass/volume)on 07-04-2022 Creatinine [Mass/Vol] 1.87 mg/dL 0.55-1.02 [facility] Work Phone: Comment on above: The validity of the calculated GFR & GFRAA in patients over 70 years has not been determined. Clinical correlation is essential. Serum or plasma urea nitroge n measurement (mass/volume)on 07-04-2022 Urea nitrogen [Mass/Vol] 14 mg/dL 7-18 [facility] Work Phone: Thin prep Papanicolaou smear with manual screeningon 07-04-2022 Thin prep Papanicolaou smear with manual screening 8 U/L 15-37 [facility] Work Phone: Thin prep Papanicolaou smear with manual screening 5 5-15 [facility] Work Phone: Thin prep Papanicolaou smear with manual screening 165 U/L 84-246 [facility] Work Phone: Laboratory - Microbiology an d Antimicrobial susceptibilityon 05-12-2022 SARS-CoV-2 (COVID-19) RNA BOBBI+probe Ql (Unsp spec) Not detected Not Detect [facility] Work Phone: Comment on above: Normal Reference Ran ge: Not DetectedMethod:(RT-PCR) real-time reverse transcriptase PCRLuminex Etubics Instrument*The Food and Drug Administration (FDA) has [...] Auto (Unsp spec) [#/Vol] 7.41 10*3/uL 0.83-4.51 [facility] Work Phone: Basophil percentageon 2021 Basophils/100 WBC (Bld) 0.5 % 0-1 [facility] Work Phone: Bilirubin [Mass/Vol] 0.50 mg/dL 0.20-1.00 [facility] Work Phone: Comment on above: For patients on eltr ombopag therapy, use of Dimension Howard TBIL is not recommended. Chloride [Moles/Vol] 108 mmol/L 98-107 [facility] Work Phone: Cholesterol [Mass/Vol] 188 mg/dL <200 [facility] Work Phone: Comment on above: <200 mg/dL Desirable 200-240 mg/dL Borderline >240 mg/dL High Risk Eosinophils/100 WBC (Bld) 0.6 % 0-5 [facility] Work Phone: [phone] Glucose [Mass/Vol] 99 mg/dL 74-106 [facility] Work Phone: [phone] Neutrophils (Bld) [#/Vol] 7.0 10*3/uL 2.0-7.7 [facility] Work Phone: [phone] Neutrophils/100 WBC (Bld) 45.2 % 47-70 [facility] Work Phone: [phone] Potassium [Moles/Vol] 4.3 mmol/L 3.5-5.1 [facility] Work Phone: [phone] Protein [Mass/Vol] 7.6 g/dL 6.4-8.2 [facility] Work Phone: [phone] Sodium [Moles/Vol] 140 mmol/L 136-145 [facility] Work Phone: [phone] Triglyceride [Mass/Vol] 97 mg/dL <199 [facility] Work Phone: Comment on above: The drugs N-Acetylcy steine and Metamizole may falsely depress this assay.Serum Triglycerides Reference Interval Normal <150 mg/dL Borderline high 150 - 199 mg/dL High 200 - 499 mg/dL Very High > or = 500 mg/dL WBC (Bld) [#/Vol] 15.6 10*3/uL 4.4-11.0 [facility] Work Phone: [phone] Blood erythrocytes count (nu mber/volume)on 05-02-2022 RBC (Bld) [#/Vol] 4.60 10*6/uL 4.2-5.4 [facility] Work Phone: [phone] Blood hemoglobin measurement (mass/volume)on 05-02-2022 Hemoglobin (Bld) [Mass/Vol] 14.9 g/dL 12.0-15.0 [facility] Work Phone: Blood lymphocytes/100 leukoc yteson 05-02-2022 Lymphocytes/100 WBC (Bld) 47.6 % 19-41 [facility] Work Phone: Blood manual differential co mment interpretation (narrative result)on 05-02-2022 Manual differential comment Pollo (Bld) [Interp] COMMENT [facility] Work Phone: Comment on above: LYMPHOCYTOSIS. Blood monocytes/100 leukocyt eson 05-02-2022 Monocytes/100 WBC (Bld) 5.8 % 0-10 [facility] Work Phone: Blood platelet mean volumeon 05-02-2022 Platelet mean volume (Bld) [Entitic vol] 10.3 fL 6.2-12.0 [facility] Work Phone: Determination of erythrocyte mean corpuscular volume (MCV)on 05-02-2022 MCV (RBC) [Entitic vol] 99.1 fL 81-99 [facility] Work Phone: Hematocrit Auto (Bld) [Volum e fraction]on 05-02-2022 Hematocrit (Bld) [Volume fraction] 45.6 % 37-47 [facility] Work Phone: Laboratory - Chemistry and C hemistry - challengeon 05-02-2022 ALP [Catalytic activity/Vol] 104 U/L 45-117 [facility] Work Phone: ALT [Catalytic activity/Vol] 17 U/L 13-56 [facility] Work Phone: CO2 [Moles/Vol] 25.0 mmol/L 21.0-32.0 [facility] Work Phone: Globulin (S) [Mass/Vol] 4.8 g/dL 2.2-4.2 [facility] Work Phone: Urea nitrogen/Creatinine [Mass ratio] 6.8 mg/mg 10-20 [facility] Work Phone: Laboratory - Hematology and Cell countson 05-02-2022 Erythrocyte distribution width (RBC) [Entitic vol] 50.5 fL 35.1-43.9 [facility] Work Phone: Erythrocyte distribution width (RBC) [Ratio] 13.9 % 11.6-14.6 [facility] Work Phone: Immature granulocytes/100 WBC (Bld) 0.300 % 0.0-0.9 [facility] Work Phone: Comment on above: IG% - Immature Granu locytes (promyelocytes, myelocytes and metamyelocytes) > 1% indicates that a LEFT SHIFT is Present. MCH (RBC) [Entitic mass] 32.4 pg 27.0-32.0 [facility] Work Phone: Nucleated RBC/100 WBC (Bld) [Ratio] 0 % 0-5 [facility] Work Phone: MCHC Auto (RBC) [Mass/Vol]on 05-02-2022 MCHC (RBC) [Mass/Vol] 32.7 g/dL 32-36 [facility] Work Phone: No Panel Informationon 05-02 Estimated GFR (MDRD) Amer 31 mL/min >60 [facility] Work Phone: Comment on above: GFR Calc Estimated GFR (MDRD) Non-Af Amer 26 mL/min >60 [facility] Work Phone: Comment on above: Non- GFR Calc Thyroid Stimulating Hormone (TSH) 3.28 uIU/mL 0.358-3.74 [facility] Work Phone: Vitamin D 25-Hydroxy 44.1 ng/mL [facility] Work Phone: Comment on above: Vitamin D 25(OH) Sta tus Range Deficiency <20 ng/mL (50nmol/L) Insufficiency 20 - 30 ng/mL (50 - 75 nmol/L) Sufficiency 30 - 100 ng/mL (75 - 250 nmol/L) Toxicity >100 ng/mL (>250 nmol/L) Platelets bldon 05-02-2022 Platelets (Bld) [#/Vol] 351 10*3/uL 150-450 [facility] Work Phone: Serum or plasma albumin yunior urement (mass/volume)on 05-02-2022 Albumin [Mass/Vol] 2.8 g/dL 3.2-5.0 [facility] Work Phone: Serum or plasma albumin/glob ulin mass ratioon 05-02-2022 Albumin/Globulin [Mass ratio] 0.6 {ratio} 0.9-2.4 [facility] Work Phone: Serum or plasma calcium yunior urement (mass/volume)on 05-02-2022 Calcium [Mass/Vol] 8.6 mg/dL 8.5-10.1 [facility] Work Phone: Serum or plasma cholesterol in HDL measurement (mass/volume)on 05-02-2022 Cholesterol in HDL [Mass/Vol] 43 mg/dL >40 [facility] Work Phone: Comment on above: The drugs N-Acetylcy steine and Metamizole may falsely depress this assay. Reference Range HDL <40 mg/dL Low HDL Cholesterol HDL >or= 60 mg/dL High HDL Cholesterol Serum or plasma cholesterol in VLDL measurement (mass/volume)on 05-02-2022 Cholesterol in VLDL [Mass/Vol] 19 mg/dL 5-40 [facility] Work Phone: Serum or plasma creatinine m easurement (mass/volume)on 05-02-2022 Creatinine [Mass/Vol] 2.05 mg/dL 0.55-1.02 [facility] Work Phone: Comment on above: The validity of the calculated GFR & GFRAA in patients over 70 years has not been determined. Clinical correlation is essential. Serum or plasma low density lipoprotein (LDL) cholesterol measurement (mass/volume)on 05-02-2022 Cholesterol in LDL [Mass/Vol] 126 mg/dL 0-130 [facility] Work Phone: Serum or plasma urea nitroge n measurement (mass/volume)on 05-02-2022 Urea nitrogen [Mass/Vol] 14 mg/dL 7-18 [facility] Work Phone: Thin prep Papanicolaou smear with manual screeningon 05-02-2022 Thin prep Papanicolaou smear with manual screening 12 U/L 15-37 [facility] Work Phone: [phone] Thin prep Papanicolaou smear with manual screening 7 5-15 [facility] Work Phone: Basophil percentageon 2021 Basophil percentage 3.4 mg/dL 2.5-4.9 [facility] Work Phone: [phone] Chloride [Moles/Vol] 105 mmol/L 98-107 [facility] Work Phone: Glucose [Mass/Vol] 96 mg/dL 74-106 [facility] Work Phone: [phone] Potassium [Moles/Vol] 4.3 mmol/L 3.5-5.1 [facility] Work Phone: [phone] Sodium [Moles/Vol] 138 mmol/L 136-145 [facility] Work Phone: [phone] WBC (Bld) [#/Vol] 13.9 10*3/uL 4.4-11.0 [facility] Work Phone: [phone] Blood erythrocytes count (nu mber/volume)on 03-15-2022 RBC (Bld) [#/Vol] 4.70 10*6/uL 4.2-5.4 [facility] Work Phone: [phone] Blood hemoglobin measurement (mass/volume)on 03-15-2022 Hemoglobin (Bld) [Mass/Vol] 15.1 g/dL 12.0-15.0 [facility] Work Phone: Blood platelet mean volumeon 03-15-2022 Platelet mean volume (Bld) [Entitic vol] 10.3 fL 6.2-12.0 [facility] Work Phone: [phone] Determination of erythrocyte mean corpuscular volume (MCV)on 03-15-2022 MCV (RBC) [Entitic vol] 99.6 fL 81-99 [facility] Work Phone: Hematocrit Auto (Bld) [Volum e fraction]on 03-15-2022 Hematocrit (Bld) [Volume fraction] 46.8 % 37-47 [facility] Work Phone: Laboratory - Chemistry and C hemistry - challengeon 03-15-2022 CO2 [Moles/Vol] 27.0 mmol/L 21.0-32.0 [facility] Work Phone: Urea nitrogen/Creatinine [Mass ratio] 7.4 mg/mg 10-20 [facility] Work Phone: Laboratory - Hematology and Cell countson 03-15-2022 Erythrocyte distribution width (RBC) [Entitic vol] 51.3 fL 35.1-43.9 [facility] Work Phone: Erythrocyte distribution width (RBC) [Ratio] 14.0 % 11.6-14.6 [facility] Work Phone: MCH (RBC) [Entitic mass] 32.1 pg 27.0-32.0 [facility] Work Phone: MCHC Auto (RBC) [Mass/Vol]on 03-15-2022 MCHC (RBC) [Mass/Vol] 32.3 g/dL 32-36 [facility] Work Phone: No Panel Informationon 03-15 Estimated GFR (MDRD) Amer 31 mL/min >60 [facility] Work Phone: Comment on above: GFR Calc Estimated GFR (MDRD) Non-Af Amer 26 mL/min >60 [facility] Work Phone: Comment on above: Non- GFR Calc Parathyroid Hormone (Intact) 151.1 pg/mL 18.4-80.1 [facility] Work Phone: Vitamin D 25-Hydroxy 31.6 ng/mL [facility] Work Phone: Comment on above: Vitamin D 25(OH) Sta tus Range Deficiency <20 ng/mL (50nmol/L) Insufficiency 20 - 30 ng/mL (50 - 75 nmol/L) Sufficiency 30 - 100 ng/mL (75 - 250 nmol/L) Toxicity >100 ng/mL (>250 nmol/L) Platelets bldon 03-15-2022 Platelets (Bld) [#/Vol] 327 10*3/uL 150-450 [facility] Work Phone: Serum or plasma albumin yunior urement (mass/volume)on 03-15-2022 Albumin [Mass/Vol] 2.9 g/dL 3.2-5.0 [facility] Work Phone: Serum or plasma calcium yunior urement (mass/volume)on 03-15-2022 Calcium [Mass/Vol] 8.5 mg/dL 8.5-10.1 [facility] Work Phone: Serum or plasma creatinine m easurement (mass/volume)on 03-15-2022 Creatinine [Mass/Vol] 2.04 mg/dL 0.55-1.02 [facility] Work Phone: Comment on above: The validity of the calculated GFR & GFRAA in patients over 70 years has not been determined. Clinical correlation is essential. Serum or plasma urea nitroge n measurement (mass/volume)on 03-15-2022 Urea nitrogen [Mass/Vol] 15 mg/dL 7-18 [facility] Work Phone: Culture, urineon 02-16-2022 Bacteria identified Cx Nom (U) Mixed Gram Pos & Gram Neg Org [facility] Work Phone: [phone] Absolute lymphocyte counton 01-26-2022 Lymphocytes Auto (Unsp spec) [#/Vol] 8.09 10*3/uL 0.83-4.51 [facility] Work Phone: Basophil percentageon 2021 Basophils/100 WBC (Bld) 0.4 % 0-1 [facility] Work Phone: [phone] Chloride [Moles/Vol] 106 mmol/L 98-107 [facility] Work Phone: [phone] Eosinophils/100 WBC (Bld) 0.4 % 0-5 [facility] Work Phone: Glucose [Mass/Vol] 104 mg/dL 74-106 [facility] Work Phone: Comment on above: Fasting Glucose resu lt from 100 to 125 mg/dL suggests IMPAIRED HOMEOSTASIS per A.D.A. criteria. Neutrophils (Bld) [#/Vol] 8.7 10*3/uL 2.0-7.7 [facility] Work Phone: [phone] Neutrophils/100 WBC (Bld) 48.3 % 47-70 [facility] Work Phone: [phone] Potassium [Moles/Vol] 3.5 mmol/L 3.5-5.1 [facility] Work Phone: [phone] Sodium [Moles/Vol] 140 mmol/L 136-145 [facility] Work Phone: [phone] WBC (Bld) [#/Vol] 18.1 10*3/uL 4.4-11.0 [facility] Work Phone: Blood erythrocytes count (nu mber/volume)on 01-26-2022 RBC (Bld) [#/Vol] 4.70 10*6/uL 4.2-5.4 [facility] Work Phone: Blood hemoglobin measurement (mass/volume)on 01-26-2022 Hemoglobin (Bld) [Mass/Vol] 15.2 g/dL 12.0-15.0 [facility] Work Phone: [phone] Blood lymphocytes/100 leukoc yteson 01-26-2022 Lymphocytes/100 WBC (Bld) 44.7 % 19-41 [facility] Work Phone: [phone] Blood manual differential co mment interpretation (narrative result)on 01-26-2022 Manual differential comment Pollo (Bld) [Interp] SCANNED [facility] Work Phone: [phone] Comment on above: LYMPHOCYTOSIS NOTED Blood monocytes/100 leukocyt eson 01-26-2022 Monocytes/100 WBC (Bld) 5.3 % 0-10 [facility] Work Phone: Blood platelet mean volumeon 01-26-2022 Platelet mean volume (Bld) [Entitic vol] 10.3 fL 6.2-12.0 [facility] Work Phone: Determination of erythrocyte mean corpuscular volume (MCV)on 01-26-2022 MCV (RBC) [Entitic vol] 97.2 fL 81-99 [facility] Work Phone: [phone] Hematocrit Auto (Bld) [Volum e fraction]on 01-26-2022 Hematocrit (Bld) [Volume fraction] 45.7 % 37-47 [facility] Work Phone: [phone] Laboratory - Chemistry and C hemistry - challengeon 01-26-2022 CO2 [Moles/Vol] 26.0 mmol/L 21.0-32.0 [facility] Work Phone: [phone] Natriuretic peptide B (Bld) [Mass/Vol] 100.1 pg/mL 0-100 [facility] Work Phone: [phone] Urea nitrogen/Creatinine [Mass ratio] 13.4 mg/mg 10-20 [facility] Work Phone: Laboratory - Hematology and Cell countson 01-26-2022 Erythrocyte distribution width (RBC) [Entitic vol] 49.8 fL 35.1-43.9 [facility] Work Phone: [phone] Erythrocyte distribution width (RBC) [Ratio] 14.0 % 11.6-14.6 [facility] Work Phone: [phone] Immature granulocytes/100 WBC (Bld) 0.900 % 0.0-0.9 [facility] Work Phone: Comment on above: IG% - Immature Granu locytes (promyelocytes, myelocytes and metamyelocytes) > 1% indicates that a LEFT SHIFT is Present. MCH (RBC) [Entitic mass] 32.3 pg 27.0-32.0 [facility] Work Phone: [phone] Nucleated RBC/100 WBC (Bld) [Ratio] 0 % 0-5 [facility] Work Phone: [phone] MCHC Auto (RBC) [Mass/Vol]on 01-26-2022 MCHC (RBC) [Mass/Vol] 33.3 g/dL 32-36 [facility] Work Phone: No Panel Informationon 01-26 Estimated GFR (MDRD) Amer 34 mL/min >60 [facility] Work Phone: Comment on above: GFR Calc Estimated GFR (MDRD) Non-Af Amer 28 mL/min >60 [facility] Work Phone: Comment on above: Non- GFR Calc Platelets bldon 01-26-2022 Platelets (Bld) [#/Vol] 346 10*3/uL 150-450 [facility] Work Phone: Serum or plasma calcium yunior urement (mass/volume)on 01-26-2022 Calcium [Mass/Vol] 8.5 mg/dL 8.5-10.1 [facility] Work Phone: Serum or plasma creatinine m easurement (mass/volume)on 01-26-2022 Creatinine [Mass/Vol] 1.87 mg/dL 0.55-1.02 [facility] Work Phone: Comment on above: The validity of the calculated GFR & GFRAA in patients over 70 years has not been determined. Clinical correlation is essential. Serum or plasma urea nitroge n measurement (mass/volume)on 01-26-2022 Urea nitrogen [Mass/Vol] 25 mg/dL 7-18 [facility] Work Phone: Thin prep Papanicolaou smear with manual screeningon 01-26-2022 Thin prep Papanicolaou smear with manual screening 8 5-15 [facility] Work Phone: Absolute lymphocyte counton 01-19-2022 Lymphocytes Auto (Unsp spec) [#/Vol] 5.62 10*3/uL 0.83-4.51 [facility] Work Phone: Basophil percentageon 2021 Basophils/100 WBC (Bld) 0.6 % 0-1 [facility] Work Phone: Bilirubin [Mass/Vol] 0.30 mg/dL 0.20-1.00 [facility] Work Phone: [phone] Comment on above: For patients on eltr ombopag therapy, use of Dimension Howard TBIL is not recommended. Chloride [Moles/Vol] 107 mmol/L 98-107 [facility] Work Phone: [phone] Cholesterol [Mass/Vol] 197 mg/dL <200 [facility] Work Phone: [phone] Comment on above: <200 mg/dL Desirable 200-240 mg/dL Borderline >240 mg/dL High Risk Eosinophils/100 WBC (Bld) 1.6 % 0-5 [facility] Work Phone: [phone] Glucose [Mass/Vol] 92 mg/dL 74-106 [facility] Work Phone: [phone] Neutrophils (Bld) [#/Vol] 5.2 10*3/uL 2.0-7.7 [facility] Work Phone: [phone] Neutrophils/100 WBC (Bld) 43.8 % 47-70 [facility] Work Phone: [phone] Potassium [Moles/Vol] 4.0 mmol/L 3.5-5.1 [facility] Work [facility]: [phone] Protein [Mass/Vol] 7.9 g/dL 6.4-8.2 [facility] Work Phone: [phone] Sodium [Moles/Vol] 138 mmol/L 136-145 [facility] Work Phone: [phone] Triglyceride [Mass/Vol] 160 mg/dL <199 [facility] Work Phone: [phone] Comment on above: The drugs N-Acetylcy steine and Metamizole may falsely depress this assay.Serum Triglycerides Reference Interval Normal <150 mg/dL Borderline high 150 - 199 mg/dL High 200 - 499 mg/dL Very High > or = 500 mg/dL WBC (Bld) [#/Vol] 11.9 10*3/uL 4.4-11.0 [facility] Work Phone: Blood erythrocytes count (nu mber/volume)on 01-19-2022 RBC (Bld) [#/Vol] 4.47 10*6/uL 4.2-5.4 [facility] Work Phone: Blood hemoglobin measurement (mass/volume)on 01-19-2022 Hemoglobin (Bld) [Mass/Vol] 14.3 g/dL 12.0-15.0 [facility] Work Phone: Blood lymphocytes/100 leukoc yteson 01-19-2022 Lymphocytes/100 WBC (Bld) 47.3 % 19-41 [facility] Work Phone: Blood manual differential co mment interpretation (narrative result)on 01-19-2022 Manual differential comment Pollo (Bld) [Interp] See comment [facility] Work Phone: Comment on above: LYMPHOCYTOSIS Blood monocytes/100 leukocyt eson 01-19-2022 Monocytes/100 WBC (Bld) 6.2 % 0-10 [facility] Work Phone: Blood platelet mean volumeon 01-19-2022 Platelet mean volume (Bld) [Entitic vol] 10.8 fL 6.2-12.0 [facility] Work Phone: Culture, urineon 01-19-2022 Bacteria identified Cx Nom (U) Mixed Gram Pos & Gram Neg Org [facility] Work Phone: Determination of erythrocyte mean corpuscular volume (MCV)on 01-19-2022 MCV (RBC) [Entitic vol] 100.4 fL 81-99 [facility] Work Phone: Hematocrit Auto (Bld) [Volum e fraction]on 01-19-2022 Hematocrit (Bld) [Volume fraction] 44.9 % 37-47 [facility] Work Phone: Laboratory - Chemistry and C hemistry - challengeon 01-19-2022 ALP [Catalytic activity/Vol] 114 U/L 45-117 [facility] Work Phone: ALT [Catalytic activity/Vol] 19 U/L 13-56 [facility] Work Phone: CO2 [Moles/Vol] 25.0 mmol/L 21.0-32.0 [facility] Work Phone: Globulin (S) [Mass/Vol] 5.2 g/dL 2.2-4.2 [facility] Work Phone: Urea nitrogen/Creatinine [Mass ratio] 12.5 mg/mg 10-20 [facility] Work Phone: Laboratory - Hematology and Cell countson 01-19-2022 Erythrocyte distribution width (RBC) [Entitic vol] 49.8 fL 35.1-43.9 [facility] Work Phone: Erythrocyte distribution width (RBC) [Ratio] 13.6 % 11.6-14.6 [facility] Work Phone: Immature granulocytes/100 WBC (Bld) 0.500 % 0.0-0.9 [facility] Work Phone: Comment on above: IG% - Immature Granu locytes (promyelocytes, myelocytes and metamyelocytes) > 1% indicates that a LEFT SHIFT is Present. MCH (RBC) [Entitic mass] 32.0 pg 27.0-32.0 [facility] Work Phone: Nucleated RBC/100 WBC (Bld) [Ratio] 0 % 0-5 [facility] Work Phone: MCHC Auto (RBC) [Mass/Vol]on 01-19-2022 MCHC (RBC) [Mass/Vol] 31.8 g/dL 32-36 [facility] Work Phone: No Panel Informationon 01-19 Estimated GFR (MDRD) Amer 33 mL/min >60 [facility] Work Phone: Comment on above: GFR Calc Estimated GFR (MDRD) Non-Af Amer 28 mL/min >60 [facility] Work Phone: Comment on above: Non- GFR Calc Thyroid Stimulating Hormone (TSH) 3.68 uIU/mL 0.358-3.74 [facility] Work Phone: Vitamin D 25-Hydroxy 33.2 ng/mL [facility] Work Phone: Comment on above: Vitamin D 25(OH) Sta tus Range Deficiency <20 ng/mL (50nmol/L) Insufficiency 20 - 30 ng/mL (50 - 75 nmol/L) Sufficiency 30 - 100 ng/mL (75 - 250 nmol/L) Toxicity >100 ng/mL (>250 nmol/L) Platelets bldon 01-19-2022 Platelets (Bld) [#/Vol] 378 10*3/uL 150-450 [facility] Work Phone: Serum or plasma albumin yunior urement (mass/volume)on 01-19-2022 Albumin [Mass/Vol] 2.7 g/dL 3.2-5.0 [facility] Work Phone: Serum or plasma albumin/glob ulin mass ratioon 01-19-2022 Albumin/Globulin [Mass ratio] 0.5 {ratio} 0.9-2.4 [facility] Work Phone: Serum or plasma calcium yunior urement (mass/volume)on 01-19-2022 Calcium [Mass/Vol] 8.8 mg/dL 8.5-10.1 [facility] Work Phone: Serum or plasma cholesterol in HDL measurement (mass/volume)on 01-19-2022 Cholesterol in HDL [Mass/Vol] 38 mg/dL >40 [facility] Work Phone: Comment on above: The drugs N-Acetylcy steine and Metamizole may falsely depress this assay. Reference Range HDL <40 mg/dL Low HDL Cholesterol HDL >or= 60 mg/dL High HDL Cholesterol Serum or plasma cholesterol in VLDL measurement (mass/volume)on 01-19-2022 Cholesterol in VLDL [Mass/Vol] 32 mg/dL 5-40 [facility] Work Phone: Serum or plasma creatinine m easurement (mass/volume)on 01-19-2022 Creatinine [Mass/Vol] 1.92 mg/dL 0.55-1.02 [facility] Work Phone: Comment on above: The validity of the calculated GFR & GFRAA in patients over 70 years has not been determined. Clinical correlation is essential. Serum or plasma low density lipoprotein (LDL) cholesterol measurement (mass/volume)on 01-19-2022 Cholesterol in LDL [Mass/Vol] 127 mg/dL 0-130 [facility] Work Phone: Serum or plasma urea nitroge n measurement (mass/volume)on 01-19-2022 Urea nitrogen [Mass/Vol] 24 mg/dL 7-18 [facility] Work Phone: Serum or plasma uric acid me asurement (mass/volume)on 01-19-2022 Urate [Mass/Vol] 5.4 mg/dL 2.6-6.0 [facility] Work Phone: Comment on above: The drugs N-Acetylcy steine and Metamizole may falsely depress this assay. Thin prep Papanicolaou smear with manual screeningon 01-19-2022 Thin prep Papanicolaou smear with manual screening 16 U/L 15-37 [facility] Work Phone: Thin prep Papanicolaou smear with manual screening 6 5-15 [facility] Work Phone: Basophil percentageon 2021 Basophil percentage 3.3 mg/dL 2.5-4.9 [facility] Work Phone: Chloride [Moles/Vol] 104 mmol/L 98-107 [facility] Work Phone: Glucose [Mass/Vol] 93 mg/dL 74-106 [facility] Work Phone: Potassium [Moles/Vol] 4.0 mmol/L 3.5-5.1 [facility] Work Phone: Sodium [Moles/Vol] 136 mmol/L 136-145 [facility] Work Phone: WBC (Bld) [#/Vol] 16.7 10*3/uL 4.4-11.0 [facility] Work Phone: Blood erythrocytes count (nu mber/volume)on 12-08-2021 RBC (Bld) [#/Vol] 4.35 10*6/uL 4.2-5.4 [facility] Work Phone: Blood hemoglobin measurement (mass/volume)on 12-08-2021 Hemoglobin (Bld) [Mass/Vol] 13.6 g/dL 12.0-15.0 [facility] Work Phone: [phone] Blood platelet mean volumeon 12-08-2021 Platelet mean volume (Bld) [Entitic vol] 10.4 fL 6.2-12.0 [facility] Work Phone: Determination of erythrocyte mean corpuscular volume (MCV)on 12-08-2021 MCV (RBC) [Entitic vol] 100.5 fL 81-99 [facility] Work Phone: Hematocrit Auto (Bld) [Volum e fraction]on 12-08-2021 Hematocrit (Bld) [Volume fraction] 43.7 % 37-47 [facility] Work Phone: Laboratory - Chemistry and C hemistry - challengeon 12-08-2021 CO2 [Moles/Vol] 24.0 mmol/L 21.0-32.0 [facility] Work Phone: Urea nitrogen/Creatinine [Mass ratio] 8.9 mg/mg -20 [facility] Work Phone: [phone] Laboratory - Hematology and Cell countson 12-08-2021 Erythrocyte distribution width (RBC) [Entitic vol] 50.1 fL 35.1-43.9 [facility] Work Phone: [phone] Erythrocyte distribution width (RBC) [Ratio] 13.4 % 11.6-14.6 [facility] Work Phone: [phone] MCH (RBC) [Entitic mass] 31.3 pg 27.0-32.0 [facility] Work Phone: [phone] MCHC Auto (RBC) [Mass/Vol]on 12-08-2021 MCHC (RBC) [Mass/Vol] 31.1 g/dL 32-36 [facility] Work Phone: No Panel Informationon 12-08 Estimated GFR (MDRD) Amer 34 mL/min >60 [facility] Work Phone: Comment on above: GFR Calc Estimated GFR (MDRD) Non-Af Amer 28 mL/min >60 [facility] Work Phone: Comment on above: Non- GFR Calc Parathyroid Hormone (Intact) 166.1 pg/mL 18.4-80.1 [facility] Work Phone: Platelets bldon 12-08-2021 Platelets (Bld) [#/Vol] 394 10*3/uL 150-450 [facility] Work Phone: Serum or plasma albumin yunior urement (mass/volume)on 12-08-2021 Albumin [Mass/Vol] 2.7 g/dL 3.2-5.0 [facility] Work Phone: Serum or plasma calcium yunior urement (mass/volume)on 12-08-2021 Calcium [Mass/Vol] 8.8 mg/dL 8.5-10.1 [facility] Work Phone: Serum or plasma creatinine m easurement (mass/volume)on 12-08-2021 Creatinine [Mass/Vol] 1.91 mg/dL 0.55-1.02 [facility] Work Phone: Comment on above: The validity of the calculated GFR & GFRAA in patients over 70 years has not been determined. Clinical correlation is essential. Serum or plasma urea nitroge n measurement (mass/volume)on 12-08-2021 Urea nitrogen [Mass/Vol] 17 mg/dL 7-18 [facility] Work Phone: Culture, urineon 12-06-2021 Bacteria identified Cx Nom (U) Pseudomonas aeroginosa [facility] Work Phone: Bacteria identified Cx Nom (U) Escherichia coli [facility] Work Phone: Basophil percentageon 2021 Chloride [Moles/Vol] 105 mmol/L 98-107 [facility] Work Phone: Glucose [Mass/Vol] 97 mg/dL 74-106 [facility] Work Phone: Comment on above: Please note revised GLUCOSE reference range effective 2017. Potassium [Moles/Vol] 3.8 mmol/L 3.5-5.1 [facility]: Sodium [Moles/Vol] 141 mmol/L 136-145 [facility] Work Phone: WBC (Bld) [#/Vol] 15.1 10*3/uL 4.4-11.0 [facility] Work Phone: Blood erythrocytes count (nu mber/volume)on 11-28-2021 RBC (Bld) [#/Vol] 4.55 10*6/uL 4.2-5.4 [facility] Work Phone: Blood hemoglobin measurement (mass/volume)on 11-28-2021 Hemoglobin (Bld) [Mass/Vol] 14.6 g/dL 12.0-15.0 [facility] Work Phone: Blood platelet mean volumeon 11-28-2021 Platelet mean volume (Bld) [Entitic vol] 10.1 fL 6.2-12.0 [facility] Work Phone: Determination of erythrocyte mean corpuscular volume (MCV)on 11-28-2021 MCV (RBC) [Entitic vol] 100.2 fL 81-99 [facility] Work Phone: Hematocrit Auto (Bld) [Volum e fraction]on 11-28-2021 Hematocrit (Bld) [Volume fraction] 45.6 % 37-47 [facility] Work Phone: Laboratory - Chemistry and C hemistry - challengeon 11-28-2021 CO2 [Moles/Vol] 30.0 mmol/L 21.0-32.0 [facility] Work Phone: Urea nitrogen/Creatinine [Mass ratio] 10.2 mg/mg 10- [facility] Work Phone: Laboratory - Hematology and Cell countson 11-28-2021 Erythrocyte distribution width (RBC) [Entitic vol] 50.5 fL 35.1-43.9 [facility] Work Phone: Erythrocyte distribution width (RBC) [Ratio] 13.7 % 11.6-14.6 [facility] Work Phone: MCH (RBC) [Entitic mass] 32.1 pg 27.0-32.0 [facility] Work Phone: MCHC Auto (RBC) [Mass/Vol]on 11-28-2021 MCHC (RBC) [Mass/Vol] 32.0 g/dL 32- [facility] Work Phone: No Panel Informationon 11-28 Estimated GFR (MDRD) Amer 33 mL/min >60 [facility] Work Phone: Comment on above: GFR Calc Estimated GFR (MDRD) Non-Af Amer 27 mL/min >60 [facility] Work Phone: Comment on above: Non- GFR Calc SARS-CoV-2 Antigen (Rapid) [facility] Work Phone: Platelets bldon 11-28-2021 Platelets (Bld) [#/Vol] 340 10*3/uL 150-450 [facility] Work Phone: Serum or plasma calcium yunior urement (mass/volume)on 11-28-2021 Calcium [Mass/Vol] 8.6 mg/dL 8.5-10.1 [facility] Work Phone: Serum or plasma creatinine m easurement (mass/volume)on 11-28-2021 Creatinine [Mass/Vol] 1.96 mg/dL 0.55-1.02 [facility] Work Phone: Comment on above: The validity of the calculated GFR & GFRAA in patients over 70 years has not been determined. Clinical correlation is essential. Serum or plasma urea nitroge n measurement (mass/volume)on 11-28-2021 Urea nitrogen [Mass/Vol] 20 mg/dL 7-18 [facility] Work Phone: Thin prep Papanicolaou smear with manual screeningon 11-28-2021 Thin prep Papanicolaou smear with manual screening 6 5-15 [facility] Work Phone: Absolute lymphocyte counton 11-08-2021 Lymphocytes Auto (Unsp spec) [#/Vol] 6.01 10*3/uL 0.83-4.51 [facility] Work Phone: Basophil percentageon 2020 Bilirubin [Mass/Vol] 0.50 mg/dL 0.20-1.00 [facility] Work Phone: Comment on above: For patients on eltr ombopag therapy, use of Dimension Howard TBIL is not recommended. Chloride [Moles/Vol] 111 mmol/L 98-107 [facility] Work Phone: Cholesterol [Mass/Vol] 183 mg/dL <200 [facility] Work Phone: Comment on above: <200 mg/dL Desirable 200-240 mg/dL Borderline >240 mg/dL High Risk Eosinophils/100 WBC (Bld) 0.1 % 0-5 [facility] Work Phone: Glucose [Mass/Vol] 92 mg/dL 74-106 [facility] Work Phone: Comment on above: Please note revised GLUCOSE reference range effective 2017. Neutrophils (Bld) [#/Vol] 10.1 10*3/uL 2.0-7.7 [facility] Work Phone: Potassium [Moles/Vol] 3.8 mmol/L 3.5-5.1 [facility] Work Phone: Comment on above: Slight Hemolysis, Re sult may be falsely increased. Protein [Mass/Vol] 8.1 g/dL 6.4-8.2 [facility] Work Phone: Sodium [Moles/Vol] 142 mmol/L 136-145 [facility] Work Phone: Triglyceride [Mass/Vol] 122 mg/dL [facility] Work Phone: Comment on above: The drugs N-Acetylcy steine and Metamizole may falsely depress this assay.Serum Triglycerides Reference Interval Normal <150 mg/dL Borderline high 150 - 199 mg/dL High 200 - 499 mg/dL Very High > or = 500 mg/dL WBC (Bld) [#/Vol] 17.4 10*3/uL 4.4-11.0 [facility] Work Phone: Blood erythrocytes count (nu mber/volume)on 11-08-2021 RBC (Bld) [#/Vol] 4.74 10*6/uL 4.2-5.4 [facility] Work Phone: Blood hemoglobin measurement (mass/volume)on 11-08-2021 Hemoglobin (Bld) [Mass/Vol] 14.9 g/dL 12.0-15.0 [facility] Work Phone: Blood lymphocytes/100 leukoc yteson 11-08-2021 Lymphocytes/100 WBC (Bld) 34.5 % 19-41 [facility] Work Phone: Blood manual differential co mment interpretation (narrative result)on 11-08-2021 Manual differential comment Pollo (Bld) [Interp] SEE COMMENT [facility] Work Phone: Comment on above: LYMPHOCYTOSIS NOTED Blood monocytes/100 leukocyt eson 11-08-2021 Monocytes/100 WBC (Bld) 4.8 % 0-10 [facility] Work Phone: Blood platelet adequacy dete ction by light microscopyon 11-08-2021 Platelets LM Ql (Bld) SLT INC ADEQ [facility] Work Phone: Blood platelet mean volumeon 11-08-2021 Platelet mean volume (Bld) [Entitic vol] 10.5 fL 6.2-12.0 [facility] Work Phone: Determination of erythrocyte mean corpuscular volume (MCV)on 11-08-2021 MCV (RBC) [Entitic vol] 98.1 fL 81-99 [facility] Work Phone: Hematocrit Auto (Bld) [Volum e fraction]on 11-08-2021 Hematocrit (Bld) [Volume fraction] 46.5 % 37-47 [facility] Work Phone: [phone] Laboratory - Chemistry and C hemistry - challengeon 11-08-2021 ALP [Catalytic activity/Vol] 107 U/L 45-117 [facility] Work Phone: ALT [Catalytic activity/Vol] 44 U/L 13-56 [facility] Work Phone: CO2 [Moles/Vol] 24.0 mmol/L 21.0-32.0 [facility] Work Phone: Globulin (S) [Mass/Vol] 5.5 g/dL 2.2-4.2 [facility] Work Phone: Urea nitrogen/Creatinine [Mass ratio] 13.6 mg/mg 10-20 [facility] Work Phone: Laboratory - Hematology and Cell countson 11-08-2021 Anisocytosis Ql (Bld) RARE [facility] Work Phone: Basophils/100 WBC (Unsp spec) 0.6 % 0-1 [facility] Work Phone: Erythrocyte distribution width (RBC) [Entitic vol] 51.4 fL 35.1-43.9 [facility] Work Phone: Erythrocyte distribution width (RBC) [Ratio] 14.2 % 11.6-14.6 [facility] Work Phone: Immature granulocytes/100 WBC (Bld) 2.000 % 0.0-0.9 [facility] Work Phone: Comment on above: IG% - Immature Granu locytes (promyelocytes, myelocytes and metamyelocytes) > 1% indicates that a LEFT SHIFT is Present. MCH (RBC) [Entitic mass] 31.4 pg 27.0-32.0 [facility] Work Phone: Neutrophils/100 WBC (Bld) 58.0 % 47-70 [facility] Work Phone: Nucleated RBC/100 WBC (Bld) [Ratio] 0 % 0-5 [facility] Work Phone: MCHC Auto (RBC) [Mass/Vol]on 11-08-2021 MCHC (RBC) [Mass/Vol] 32.0 g/dL 32-36 [facility] Work Phone: Macrocytes detectionon 11-08 Macrocytes Ql (Bld) RARE [facility] Work Phone: No Panel Informationon 11-08 Atypical Lymphocytes 2+ % [facility] Work Phone: Estimated GFR (MDRD) Amer 34 mL/min >60 [facility] Work Phone: Comment on above: GFR Calc Estimated GFR (MDRD) Non-Af Amer 28 mL/min >60 [facility] Work Phone: Comment on above: Non- GFR Calc Thyroid Stimulating Hormone (TSH) 1.06 uIU/mL 0.358-3.74 [facility] Work Phone: Vitamin D 25-Hydroxy 36.3 ng/mL [facility] Work Phone: Comment on above: Vitamin D 25(OH) Sta tus Range Deficiency <20 ng/mL (50nmol/L) Insufficiency 20 - 30 ng/mL (50 - 75 nmol/L) Sufficiency 30 - 100 ng/mL (75 - 250 nmol/L) Toxicity >100 ng/mL (>250 nmol/L) Platelets bldon 11-08-2021 Platelets (Bld) [#/Vol] 408 10*3/uL 150-450 [facility] Work Phone: RBC morphologyon 11-08-2021 RBC morphology finding Nom (Bld) N CHROM NORMAL NORM C&C [facility] Work Phone: Review by pathologiston 10-20 Pathologist review Pollo (Unsp spec) [Interp] Reviewed [facility] Work Phone: Comment on above: Previous reported re sult: Denisse alcala Edited by: KRISTINA on 11/10/21:0937Neutrophilic leukocytosis.Clinical correlation suggested.Albaro Au D.O. 11/10/21 AMENDED REPORT 11/10/21 0904 PATH REV previously reported as: March cari Serum or plasma albumin yunior urement (mass/volume)on 11-08-2021 Albumin [Mass/Vol] 2.6 g/dL 3.2-5.0 [facility] Work Phone: Serum or plasma albumin/glob ulin mass ratioon 11-08-2021 Albumin/Globulin [Mass ratio] 0.5 {ratio} 0.9-2.4 [facility] Work Phone: Serum or plasma calcium yunior urement (mass/volume)on 11-08-2021 Calcium [Mass/Vol] 8.5 mg/dL 8.5-10.1 [facility] Work Phone: Serum or plasma cholesterol in HDL measurement (mass/volume)on 11-08-2021 Cholesterol in HDL [Mass/Vol] 39 mg/dL [facility] Work Phone: Comment on above: The drugs N-Acetylcy steine and Metamizole may falsely depress this assay. Reference Range HDL <40 mg/dL Low HDL Cholesterol HDL >or= 60 mg/dL High HDL Cholesterol Serum or plasma cholesterol in VLDL measurement (mass/volume)on 11-08-2021 Cholesterol in VLDL [Mass/Vol] 24 mg/dL 5-40 [facility] Work Phone: Serum or plasma creatinine m easurement (mass/volume)on 11-08-2021 Creatinine [Mass/Vol] 1.91 mg/dL 0.55-1.02 [facility] Work Phone: Comment on above: The validity of the calculated GFR & GFRAA in patients over 70 years has not been determined. Clinical correlation is essential. Serum or plasma low density lipoprotein (LDL) cholesterol measurement (mass/volume)on 11-08-2021 Cholesterol in LDL [Mass/Vol] 120 mg/dL 0-130 [facility] Work Phone: Serum or plasma urea nitroge n measurement (mass/volume)on 11-08-2021 Urea nitrogen [Mass/Vol] 26 mg/dL 7-18 [facility] Work Phone: Thin prep Papanicolaou smear with manual screeningon 11-08-2021 Thin prep Papanicolaou smear with manual screening 16 U/L 15-37 [facility] Work Phone: Comment on above: Slight Hemolysis, Re sult may be falsely increased. Thin prep Papanicolaou smear with manual screening 7 5-15 [facility] Work Phone: Laboratory - Microbiology an d Antimicrobial susceptibilityon 11-01-2021 SARS-CoV-2 (COVID-19) RNA BOBBI+probe Ql (Unsp spec) Not detected Not Detect [facility] Work Phone: Comment on above: Normal Reference [...] percentageon 2020 Chloride [Moles/Vol] 106 mmol/L 98-107 [facility] Work Phone: Glucose [Mass/Vol] 85 mg/dL 74-106 [facility] Work Phone: Comment on above: Please note revised GLUCOSE reference range effective 2017. Potassium [Moles/Vol] 3.7 mmol/L 3.5-5.1 [facility] Work Phone: Sodium [Moles/Vol] 141 mmol/L 136-145 [facility] Work Phone: WBC (Bld) [#/Vol] 13.5 10*3/uL 4.4-11.0 [facility] Work Phone: [phone] Blood erythrocytes count (nu mber/volume)on 10-24-2021 RBC (Bld) [#/Vol] 4.48 10*6/uL 4.2-5.4 [facility] Work Phone: Blood hemoglobin measurement (mass/volume)on 10-24-2021 Hemoglobin (Bld) [Mass/Vol] 14.1 g/dL 12.0-15.0 [facility] Work Phone: Blood platelet mean volumeon 10-24-2021 Platelet mean volume (Bld) [Entitic vol] 10.8 fL 6.2-12.0 [facility] Work Phone: Determination of erythrocyte mean corpuscular volume (MCV)on 10-24-2021 MCV (RBC) [Entitic vol] 98.7 fL 81-99 [facility] Work Phone: Hematocrit Auto (Bld) [Volum e fraction]on 10-24-2021 Hematocrit (Bld) [Volume fraction] 44.2 % 37-47 [facility] Work Phone: Laboratory - Chemistry and C hemistry - challengeon 10-24-2021 CO2 [Moles/Vol] 25.0 mmol/L 21.0-32.0 [facility] Work Phone: Urea nitrogen/Creatinine [Mass ratio] 12.9 mg/mg 10-20 [facility] Work Phone: Laboratory - Hematology and Cell countson 10-24-2021 Erythrocyte distribution width (RBC) [Entitic vol] 52.3 fL 35.1-43.9 [facility] Work Phone: Erythrocyte distribution width (RBC) [Ratio] 14.4 % 11.6-14.6 [facility] Work Phone: MCH (RBC) [Entitic mass] 31.5 pg 27.0-32.0 [facility] Work Phone: MCHC Auto (RBC) [Mass/Vol]on 10-24-2021 MCHC (RBC) [Mass/Vol] 31.9 g/dL 32-36 [facility] Work Phone: No Panel Informationon 10-24 Estimated GFR (MDRD) Amer 35 mL/min >60 [facility] Work Phone: Comment on above: GFR Calc Estimated GFR (MDRD) Non-Af Amer 29 mL/min >60 [facility] Work Phone: Comment on above: Non- GFR Calc Platelets bldon 10-24-2021 Platelets (Bld) [#/Vol] 334 10*3/uL 150-450 [facility] Work Phone: Serum or plasma calcium yunior urement (mass/volume)on 10-24-2021 Calcium [Mass/Vol] 8.7 mg/dL 8.5-10.1 [facility] Work Phone: Serum or plasma creatinine m easurement (mass/volume)on 10-24-2021 Creatinine [Mass/Vol] 1.86 mg/dL 0.55-1.02 [facility] Work Phone: Comment on above: The validity of the calculated GFR & GFRAA in patients over 70 years has not been determined. Clinical correlation is essential. Serum or plasma urea nitroge n measurement (mass/volume)on 10-24-2021 Urea nitrogen [Mass/Vol] 24 mg/dL 7-18 [facility] Work Phone: Thin prep Papanicolaou smear with manual screeningon 10-24-2021 Thin prep Papanicolaou smear with manual screening 10 5-15 [facility] Work Phone: Albumin Elph [Mass/Vol]on Albumin [Mass/Vol] 3.3 g/dL 2.9-4.4 [facility] Work Phone: Blood platelet adequacy dete ction by light microscopyon 05-31-2021 Platelets LM Ql (Bld) ADEQUATE ADEQ [facility] Interpretation of serum or p lasma protein pattern by immunofixation (narrative resulton 05-31-2021 Protein Fractions Immunofixation Pollo [Interp] See comment [facility] Work Phone: Comment on above: Due to the small leah ntity of monoclonal protein, unable toquantitate the M-spike. Laboratory - Hematology and Cell countson 05-31-2021 Anisocytosis Ql (Bld) 1+ [facility] Macrocytes detectionon 05-31 Macrocytes Ql (Bld) 1+ [facility] No Panel Informationon 05-31 Addendum Document Comment . [facility] Work Phone: Comment on above: Protein electrophore sis scan will follow via computer,mail, or contingents supervisor delivery.Performed at: [facility] [place] [id number] Director: Gaudencio Alexandre PhD, Phone: [phone] Atypical Lymphocytes 1+ % [facility] Miscellaneous Test See comment [facility] Comment on above: TEST RESULT UNITS [...] FISH RESULTS: CCND1/IGH: NORMAL . nuc edgar 11q13(CGFY5f1),14q32(IGHx2)[100] DUNCAN: NORMAL nuc edgar 11q22.3(ATMx2)[100] . 12cen: NORMAL . nuc edgar 12cen(N32H8p9)[100] . 13q: NORMAL . nuc edgar 13q14.3(DLEUx2),13q34(YENC0e8)[100] . TP53: NORMAL . nuc edgar 17p13.1(TP53x2)[100] This analysis is limited to abnormalities detectableby the specific probes included in the study. FISH resultsshould be interpreted within the context of a fullcytogenetic analysis and hematologic evaluation. REFERENCES:. Latasha,(2013) Adv Exp Med Biol 792:193-214.PMID#[id number] . Valerie et al.,(2011) Clin Lab Med31:649-658.PMID#[id number] This test was developed and its performacecharacteristics determined by [employer] It has not been cleared orapproved by the U.S. Food and Drug Administration. The DNA[employer] vendor for this study was [employer] ([employer]).Director Review: Comment:JOSEPHINE AHUJA, PHD TESTING PERFORMED AT [employer]. ORIGINAL REPORT ON FILE IN LAB CONTAINS ADDITIONAL TEST SITE INFORMATION. 1+ % [facility] 1+ [facility] See comment [facility] RBC morphologyon 05-31-2021 RBC morphology finding Nom (Bld) N CHROM NORMAL NORM C&C [facility] Review by pathologiston 05-19 Pathologist review Pollo (Unsp spec) [Interp] Reviewed [facility] Comment on above: Previous reported re sult: Denisse alcala Edited by: KRISTINA on 06/01/21:1340Leukocytosis and macrocytosis.Clinical correlation necessary.Nikolas Clark M.D. 06/01/21 AMENDED REPORT 06/01/21 1340 PATH REV previously reported as: Denisse alcala Serum [id number] measu rement by electrophoresison 05-31-2021 Alpha 1 globulin Elph [Mass/Vol] 0.3 g/dL 0.0-0.4 [facility] Work Phone: Alpha 1 globulin Elph [Mass/Vol] 1.1 g/dL 0.4-1.0 [facility] Work Phone: Serum or plasma IgA measurem ent (mass/volume)on 05-31-2021 IgA [Mass/Vol] 1001 mg/dL 87-352 [facility] Work Phone: Comment on above: Results confirmed on dilution. Serum or plasma IgG measurem ent (mass/volume)on 05-31-2021 IgG [Mass/Vol] 1843 mg/dL 586-1602 [facility] Work Phone: Serum or plasma IgM measurem ent (mass/volume)on 05-31-2021 IgM [Mass/Vol] 124 mg/dL 26-217 [facility] Work Phone: Serum or plasma beta globuli n measurement by electrophoresis (mass/volume)on 05-31-2021 Beta globulin Elph [Mass/Vol] 1.4 g/dL 0.7-1.3 [facility] Work Phone: Serum or plasma gamma globul in measurement by electrophoresis (mass/volume)on 05-31-2021 Gamma globulin Elph [Mass/Vol] 2.3 g/dL 0.4-1.8 [facility] Work Phone: Serum or plasma immunoelectr ophoresis interpretation (nominal result)on 05-31-2021 Interpretation IEP [Interp] Comment . [facility] Work Phone: Comment on above: Immunofixation shows IgM monoclonal protein with kappalight chain specificity.Lambda appears asymmetrical. Thin prep Papanicolaou smear with manual screeningon 05-31-2021 Thin prep Papanicolaou smear with manual screening 0.7 0.7-1.7 [facility] Work Phone: Total protein bloodon 2020 Protein [Mass/Vol] 8.3 g/dL 6.0-8.5 [facility] Work Phone: Hemogram/Diffon 06-12-2018 CBC Interp. See below Normal [facility] Comment on above: Performed By: #### C BCD1 ####[place] [address] Interpreted by See below Normal [facility] Comment on above: Result Comment: Trudy Small M.D., PathologistMild absolute lymphocytosis. If this finding is sustained orclinically unexplained, immunophenotyping by flow cytometrymay be useful. Performed By: #### C BCD1 ####[place] [address] CHEST 2 VIEWSon 06-11-2018 Protein mass conc Performed at [facility] APPROVED BY: Sean Frausto MD EXAMINATION: CHEST RADIOGRAPH (2 VIEW FRONTAL & LATERAL) Clinical History: Lightheadedness. Near syncopal episodeM: [id number]: None RESULT: Lines, tubes, and devices: None. Lungs and pleura: No consolidation. No lung mass. No pleural effusion. Cardiomediastinal silhouette: Normal cardiomediastinal silhouette. Other: No acute bony abnormality is seen IMPRESSION: No acute radiographic abnormality. Normal [facility] Comprehensive Panelon 2017 ALP enzyme act/vol 96 U/L Normal 46-116 [facility] Comment on above: Performed By: #### P 14 ####[place] [address] ALT enzyme act/vol 17 U/L Normal 12-78 [facility] Comment on above: Performed By: #### P 14 ####[facility] [place] [address] Protein mass conc 8.1 g/dL Normal 6.4-8.2 [facility] Comment on above: Performed By: #### P 14 ####[place] [address] Bilirubin mass conc 0.4 mg/dL Normal 0.2-1.0 [facility] Comment on above: Performed By: #### P 14 ####[place] [id number] AST enzyme act/vol 8 U/L Low 9-37 [facility] Comment on above: Performed By: #### P 14 ####[facility] [place], [place] [address] Creatinine mass conc 0.89 mg/dL Normal 0.51-0.95 [facility] Comment on above: Performed By: #### P 14 ####[facility] [place], [place] [address] Glucose mass conc 99 mg/dL Normal 70-99 [facility] Comment on above: Performed By: #### P 14 ####[address] [address] Albumin mass conc 3.2 g/dL Low 3.4-5.0 [facility] Comment on above: Performed By: #### P 14 ####[address] [address] Urea nitrogen mass conc 8 mg/dL Normal 7-18 [facility] Comment on above: Performed By: #### P 14 ####[address] [address] Anion gap 3 molar conc 11 mmol/L Normal 8-16 [facility] Comment on above: Performed By: #### P 14 ####[address] [address] Calcium mass conc 8.8 mg/dL Normal 8.5-10.1 [facility] Comment on above: Performed By: #### P 14 ####[facility] [place], [place] [address] CO2 molar conc 28 mmol/L Normal 21-32 [facility] Comment on above: Performed By: #### P 14 ####[address] [address] Chloride molar conc 105 mmol/L Normal 98-107 [facility] Comment on above: Performed By: #### P 14 ####[address] [address] Potassium molar conc 3.8 mmol/L Normal 3.5-5.1 [facility] Comment on above: Performed By: #### P 14 ####[place] [address] Sodium molar conc 140 mmol/L Normal 136-145 [facility] Comment on above: Performed By: #### P 14 ####[place] [address] [facility] Troponin Ion 06-11-2018 Troponin I.cardiac mass conc ng/mL Normal 0.015-0.04 5 [facility] Comment on above: Performed By: #### E RTRP ####[place] [address] Hemogram/Diffon 06-11-2018 Abs Immature Grans 0.11 thou/cmm High 0.00-0.05 [facility] Comment on above: Performed By: #### C BCD1 ####[place] [address] Abs. Baso 0.06 thou/cmm Normal 0.01-0.08 [facility] Comment on above: Result Comment: Smea r scanned; tech agrees with automated differential Performed By: #### C BCD1 ####[place] [address] Abs. [place] 0.91 thou/cmm High 0.27-0.70 [facility] Comment on above: Performed By: #### C BCD1 ####[place] [address] Abs. Neut (ANC) 8.83 thou/cmm High 1.56-6.13 [facility] Comment on above: Performed By: #### C BCD1 ####[place] [address] Basophils/100 WBC Auto (Bld) 0.4 % Normal [facility] Comment on above: Performed By: #### C BCD1 ####[place] [address] Eosinophils Auto #/vol (Bld) 0.08 thou/cmm Normal 0.00-0.31 [facility] Comment on above: Performed By: #### C BCD1 ####[address] [address] Eosinophils/100 WBC Auto (Bld) 0.5 % Normal [facility] Comment on above: Performed By: #### C BCD1 ####[address] [address] Immature Grans 0.70 % Normal [facility] Comment on above: Performed By: #### C BCD1 ####[address] [address] Lymphocytes Auto #/vol (Bld) 5.37 thou/cmm High 1.18-3.74 [facility] Comment on above: Performed By: #### C BCD1 ####[address] [address] Lymphocytes/100 WBC Auto (Bld) 35.0 % Normal [facility] Comment on above: Performed By: #### C BCD1 ####[address] [address] Monocytes/100 WBC Auto (Bld) 5.9 % Normal [facility] Comment on above: Performed By: #### C BCD1 ####[address] [address] Seg Neutrophil 57.5 % Normal [facility] Comment on above: Performed By: #### C BCD1 ####[address] [address] Erythrocyte distribution width Auto Ratio (RBC) 13.5 % Normal 11.7-14.4 [facility] Comment on above: Performed By: #### C BCD1 ####[address] [address] Hematocrit Auto Volume Fraction (Bld) 42.8 % Normal 34.1-44.9 [facility] Comment on above: Performed By: #### C BCD1 ####[address] [address] Hemoglobin mass conc (Bld) 14.4 g/dL Normal 11.2-15.7 [facility] Comment on above: Performed By: #### C BCD1 ####[place] [address] [place] [address] MCH Auto Entitic mass (RBC) 31.8 pg Normal 25.6-32.2 [facility] Comment on above: Performed By: #### C BCD1 ####[facility] [place] [address] MCHC Auto mass conc (RBC) 33.6 % Normal 31.6-34.8 [facility] Comment on above: Performed By: #### C BCD1 ####[place] [address] MCV Auto Entitic volume (RBC) 94.5 fL Normal 79.4-94.8 [facility] Comment on above: Performed By: #### C BCD1 ####[place] [address] Platelet mean volume Auto Entitic volume (Bld) 10.4 fL Normal 9.4-12.3 [facility] Comment on above: Performed By: #### C BCD1 ####[place] [address] Platelets Auto #/vol (Bld) 389 thou/cmm High 182-369 [facility] Comment on above: Performed By: #### C BCD1 ####[place] [address] RBC Auto #/vol (Bld) 4.53 mil/cmm Normal 3.93-5.22 [facility] Comment on above: Performed By: #### C BCD1 ####[place] [address] RDW SD 47.0 fl High 36.4-46.3 [facility] Comment on above: Performed By: #### C BCD1 ####[place] [address] WBC Auto #/vol (Bld) 15.35 thou/cmm High 3.98-10.04 [facility] Comment on above: Performed By: #### C BCD1 ####[place] [address] MDRD GFRon 06-11-2018 GFR/1.73 sq M predicted among non-blacks MDRD vol rate/area (S/P/Bld) mL/min/{1.73_m2} Normal >60mL/min/ 1.73m2 [facility] Comment on above: Result Comment: If t he patient is , multiply the result by 1.210. Performed By: #### G FR ####[place] [address] Urinalysis Routineon 018 Bacteria LM.HPF #/area (Urine sed) NONE Normal None [facility] Comment on above: Performed By: #### U RIN2 ####[place] [address] Ep Cells Urine 0.6 /hpf Normal 0.0-5.0 [facility] Comment on above: Performed By: #### U RIN2 ####[place] [address] Hyaline Cast 0.4 /lpf Normal 0.0-1.0 [facility] Comment on above: Performed By: #### U RIN2 ####[place] [address] RBC,Urine 4.8 /hpf Normal 0.0-5.0 [facility] Comment on above: Performed By: #### U RIN2 ####[place] [address] WBC, Urine 184.3 /hpf High 0.0-5.0 [facility] Comment on above: Performed By: #### U RIN2 ####[place] [address] Appearance Nom (U) CLOUDY Normal [facility] Comment on above: Performed By: #### U RIN2 ####[place] [address] Bilirubin Urine Negative Normal Negative [facility] Comment on above: Performed By: #### U RIN2 ####[place] [address] Color Nom (U) YELLOW Normal [facility] Comment on above: Performed By: #### U RIN2 ####[facility] [place], [place] [address] Glucose Ql (U) Negative Normal Negative [facility] Comment on above: Performed By: #### U RIN2 ####[place] [address] Hemoglobin,Urine MODERATE Abnormal Negative [facility] Comment on above: Performed By: #### U RIN2 ####[place] [address] Ketone Urine Negative Normal Negative [facility] Comment on above: Performed By: #### U RIN2 ####[place] [address] Leukocytes Esterase LARGE Abnormal Negative [facility] Comment on above: Performed By: #### U RIN2 ####[place] [address] Nitrites Urine Negative Normal Negative [facility] Comment on above: Performed By: #### U RIN2 ####[place] [address] pH Test strip (U) 7.0 [pH] Normal 5.0-8.0 [facility] Comment on above: Performed By: #### U RIN2 ####[address] [address] Protein Urine Negative Normal Negative [facility] Comment on above: Performed By: #### U RIN2 ####[place] [address] Specific [place], Ur 1.005 Normal 1.005-1 .03 0 [facility] Comment on above: Performed By: #### U RIN2 ####[place] [address] Urobilinogen,Ur 0.2 EU/dL Normal 0.0-1.0 [facility] Comment on above: Performed By: #### U RIN2 ####[place] [address] Clostridium difficile detect ion by polymerase chain reaction C. difficile DNA BOBBI+probe Ql (Unsp spec) [facility] Work Phone: Culture, urine Bacteria identified Cx Nom (U) Mixed Gram Pos & Gram Neg Org [facility] Work Phone: Bacteria identified Cx Nom (U) Pseudomonas aeroginosa [facility] Work Phone: Bacteria identified Cx Nom (U) Positive [facility] Work Phone: Influenza virus A and B and SARS-CoV-2 (COVID-19) Ag panel - Upper respiratory specim SARS-CoV-2 (COVID-19) RNA BOBBI+probe Ql (Resp) [facility] Work Phone: Laboratory - Microbiology an d Antimicrobial susceptibility Bacteria identified Cx Nom (Bld) No growth in 5 days. [facility] Work Phone: No Panel Information Influenza Types A,B Direct FA (LEVI) [facility] Work Phone: SARS-CoV-2 & FLU Antigen (Rapid) [facility] Work Phone: RSV Ag EIA RSV Ag Immune stain Ql (Tiss) [facility] Work Phone: Vital Signs Date Time Vital Sign Value Performing Clinician Facility 03-03-2025 11:11-0400 Body temperature 98.6 [degF] Dr. Gerardo García MD Work Phone: [facility] 03-03-2025 11:11-0400 Body weight 80.[address] Gerardo García MD Work Phone: [facility] 03-03-2025 11:11-0400 Diastolic blood pressure 82 mm[Hg] Dr. Gerardo García MD Work Phone: [facility] 03-03-2025 11:11-0400 Heart rate 106 /min Dr. Gerardo García MD Work Phone: [facility] 03-03-2025 11:11-0400 Respiratory rate 16 /min Dr. Gerardo García MD Work Phone: [facility] 03-03-2025 11:11-0400 SaO2% (BldA) [Mass fraction] 97 % Dr. Gerardo García MD Work Phone: [facility] 03-03-2025 11:11-0400 Systolic blood pressure 158 mm[Hg] Dr. Gerardo García MD Work Phone: [facility] 01-26-2025 15:01-0400 Diastolic blood pressure 100 mm[Hg] Injection/[facility] 01-26-2025 15:01-0400 Heart rate 109 /min Injection/[facility] 01-26-2025 15:01-0400 Respiratory rate 20 /min Injection/[facility] 01-26-2025 15:01-0400 SaO2% (BldA) [Mass fraction] 95 % Injection/[facility] 01-26-2025 15:01-0400 Systolic blood pressure 159 mm[Hg] Injection/[facility] 09-29-2024 11:21-0500 Diastolic blood pressure 68 mm[Hg] Ghulam Miguel DO Work Phone: [facility] 09-29-2024 11:21-0500 Heart rate 105 /min Ghulam Miguel DO Work Phone: [facility] 09-29-2024 11:21-0500 Respiratory rate 20 /min Ghulam Miguel DO Work Phone: [facility] Comment on above: on 09-29-2024 11:21-0500 SaO2% (BldA) [Mass fraction] 97 % Ghulam Miguel DO Work Phone: [facility] 09-29-2024 11:21-0500 Systolic blood pressure 147 mm[Hg] Ghulam Miguel DO Work Phone: [facility] 03-18-2024 16:02-0400 Diastolic blood pressure 90 mm[Hg] Rocío Tapia MD, MD Work Phone: [facility] 03-18-2024 16:02-0400 Heart rate 102 /min Rocío Tapia MD, MD Work Phone: [facility] 03-18-2024 16:02-0400 SaO2% (BldA) [Mass fraction] 98 % Rocío Tapia MD, MD Work Phone: [facility] 03-18-2024 16:02-0400 Systolic blood pressure 166 mm[Hg] Rocío Tapia MD, MD Work Phone: [facility] 02-17-2024 11:15-0400 Body temperature 98.2 [degF] Dr. Gerardo García Work Phone: [facility] 02-17-2024 11:15-0400 Diastolic blood pressure 74 mm[Hg] Dr. Gerardo García Work Phone: [facility] 02-17-2024 11:15-0400 Heart rate 72 /min Dr. Gerardo García Work Phone: [facility] 02-17-2024 11:15-0400 Respiratory rate 18 /min Dr. Gerardo García Work Phone: [facility] 02-17-2024 11:15-0400 SaO2% (BldA) [Mass fraction] 98 % Dr. Gerardo García Work Phone: [facility] 02-17-2024 11:15-0400 Systolic blood pressure 140 mm[Hg] Dr. Gerardo García Work Phone: [facility] 02-17-2024 05:54-0400 Body mass index (BMI) [Ratio] 25.9 kg/m2 Dr. Gerardo García Work Phone: [facility] 02-17-2024 05:54-0400 Body weight 77.[address] Gerardo García Work Phone: [facility] 02-14-2024 20:45-0400 Body height 172.[address] Gerardo García Work Phone: [facility] 02-14-2024 20:00-0400 Body temperature 98.6 [degF] Dr. Gerardo García Work Phone: [facility] 02-14-2024 20:00-0400 Diastolic blood pressure 74 mm[Hg] Dr. Gerardo García Work Phone: [facility] 02-14-2024 20:00-0400 Heart rate 103 /min Dr. Gerardo García Work Phone: [facility] 02-14-2024 20:00-0400 Respiratory rate 17 /min Dr. Gerardo García Work Phone: [facility] 02-14-2024 20:00-0400 SaO2% (BldA) [Mass fraction] 96 % Dr. Gerardo Garcaí Work Phone: [facility] 02-14-2024 20:00-0400 Systolic blood pressure 121 mm[Hg] Dr. Gerardo García Work Phone: [facility] 02-14-2024 17:00-0400 Body mass index (BMI) [Ratio] 23.6 kg/m2 Dr. Gerardo García Work Phone: [facility] 02-14-2024 17:00-0400 Body weight 70.[address] Gerardo García Work Phone: [facility] 01-10-2024 11:39-0500 Body temperature 98.1 [degF] Breann Woods RN Work Phone: [facility] 01-10-2024 11:39-0500 Diastolic blood pressure 80 mm[Hg] Breann Woods RN Work Phone: [facility] 01-10-2024 11:39-0500 Heart rate 100 /min Breann Woods RN Work Phone: [facility] 01-10-2024 11:39-0500 Respiratory rate 18 /min Breann Woods RN Work Phone: [facility] 01-10-2024 11:39-0500 SaO2% (BldA) [Mass fraction] 98 % Breann Woods RN Work Phone: [facility] 01-10-2024 11:39-0500 Systolic blood pressure 126 mm[Hg] Breann Woods RN Work Phone: [facility] 01-03-2024 14:40-0500 Body temperature 98.1 [degF] Breann Woods RN Work Phone: [facility] 01-03-2024 14:40-0500 Diastolic blood pressure 70 mm[Hg] Breann Woods RN Work Phone: [facility] 01-03-2024 14:40-0500 Heart rate 78 /min Breann Grage RN Work Phone: [facility] 01-03-2024 14:40-0500 Respiratory rate 18 /min Breann Cornelioge RN Work Phone: [facility] 01-03-2024 14:40-0500 SaO2% (BldA) [Mass fraction] 98 % Breannmaris Woods RN Work Phone: [facility] 01-03-2024 14:40-0500 Systolic blood pressure 124 mm[Hg] Breann Woods RN Work Phone: [facility] 01-01-2024 11:16-0500 Body temperature 97 [degF] Jose L Patel MD, MD Work Phone: [facility] 01-01-2024 11:16-0500 Respiratory rate 17 /min Jose L Patel MD, MD Work Phone: [facility] 12-27-2023 16:25-0500 Body temperature 98.4 [degF] Breann Woods RN Work Phone: [facility] 12-27-2023 16:25-0500 Diastolic blood pressure 86 mm[Hg] Breann Woods RN Work Phone: [facility] 12-27-2023 16:25-0500 Heart rate 100 /min Breannmaris Woods RN Work Phone: [facility] 12-27-2023 16:25-0500 Respiratory rate 18 /min Breannmaris Woods RN Work Phone: [facility] 12-27-2023 16:25-0500 SaO2% (BldA) [Mass fraction] 99 % Breannmaris Woods RN Work Phone: [facility] 12-27-2023 16:25-0500 Systolic blood pressure 128 mm[Hg] Breann Woods RN Work Phone: [facility] 12-24-2023 15:35-0500 Body height 172.7 cm Jin Antonio MD Work Phone: [facility] 12-24-2023 15:35-0500 Body weight 74.84 kg Jin Antonio MD Work Phone: [facility] 12-24-2023 15:35-0500 Respiratory rate 16 /min Jin Antonio MD Work Phone: [facility] 12-20-2023 13:26-0500 Diastolic blood pressure 86 mm[Hg] Joey Strange RN Work Phone: [facility] 12-20-2023 13:26-0500 Heart rate 84 /min Joey Strange RN Work Phone: [facility] 12-20-2023 13:26-0500 Systolic blood pressure 160 mm[Hg] Joey Strange RN Work Phone: [facility] 12-20-2023 13:00-0500 Body temperature 97.81 [degF] Joey Strange RN Work Phone: [facility] 12-20-2023 13:00-0500 Respiratory rate 16 /min Joey Strange RN Work Phone: [facility] 12-20-2023 13:00-0500 SaO2% (BldA) [Mass fraction] 96 % Joey Strange RN Work Phone: [facility] 11-17-2023 09:38-0500 Body temperature 98 [degF] Dr. Gerardo García Work Phone: [facility] 11-17-2023 09:38-0500 Diastolic blood pressure 68 mm[Hg] Dr. Gerardo García Work Phone: [facility] 11-17-2023 09:38-0500 Heart rate 97 /min Dr. Gerardo García Work Phone: [facility] 11-17-2023 09:38-0500 Respiratory rate 22 /min Dr. Gerardo García Work Phone: [facility] 11-17-2023 09:38-0500 SaO2% (BldA) [Mass fraction] 96 % Dr. Gerardo García Work Phone: [facility] 11-17-2023 09:38-0500 Systolic blood pressure 131 mm[Hg] Dr. Gerardo García Work Phone: 3(351)183-193598 [place] [address] 11-16-2023 16:14-0500 Body height 172.[address] Gerardo García Work Phone: 7(154)478-730798 [place] [address] 11-16-2023 16:14-0500 Body mass index (BMI) [Ratio] 26.4 kg/m2 Dr. Gerardo García Work Phone: 2(333)696-947398 [place] [address] 11-16-2023 16:14-0500 Body weight 78.[address] Gerardo García Work Phone: 6(290)001-028998 [place] [address] 11-13-2023 13:07-0500 Body temperature 98.9 [degF] Dr. Gerardo García Work Phone: 7(626)931-293598 [place] [address] 11-13-2023 13:07-0500 Diastolic blood pressure 80 mm[Hg] Dr. Gerardo García Work Phone: 5(167)068-537803 [place] [address] 11-13-2023 13:07-0500 Heart rate 76 /min Dr. Gerardo García Work Phone: [facility] 11-13-2023 13:07-0500 Respiratory rate 18 /min Dr. Gerardo García Work Phone: [facility] 11-13-2023 13:07-0500 SaO2% (BldA) [Mass fraction] 98 % Dr. Gerardo García Work Phone: [facility] 11-13-2023 13:07-0500 Systolic blood pressure 129 mm[Hg] Dr. Gerardo García Work Phone: 7(614)583-392198 [place] [address] 11-13-2023 10:49-0500 Body height 172.[address] Gerardo García Work Phone: [facility] 11-13-2023 10:49-0500 Body weight 77.[address] Gerardo García Work Phone: [facility] 11-10-2023 23:24-0500 Body mass index (BMI) [Ratio] 26 kg/m2 Dr. Gerardo García Work Phone: [facility] 11-10-2023 22:00-0500 Body temperature 98.3 [degF] Dr. Gerardo García Work Phone: [facility] 11-10-2023 22:00-0500 Diastolic blood pressure 54 mm[Hg] Dr. Gerardo García Work Phone: [facility] 11-10-2023 22:00-0500 Heart rate 76 /min Dr. Gerardo García Work Phone: [facility] 11-10-2023 22:00-0500 Respiratory rate 16 /min Dr. Gerardo García Work Phone: [facility] 11-10-2023 22:00-0500 SaO2% (BldA) [Mass fraction] 94 % Dr. Gerardo García Work Phone: [facility] 11-10-2023 22:00-0500 Systolic blood pressure 126 mm[Hg] Dr. Gerardo García Work Phone: [facility] 11-10-2023 20:11-0500 Body mass index (BMI) [Ratio] 25.9 kg/m2 Dr. Gerardo García Work Phone: [facility] 11-10-2023 20:11-0500 Body weight 77.[address] Gerardo García Work Phone: [facility] 11-10-2023 20:04-0500 Body height 172.[address] Gerardo García Work Phone: [facility] 11-06-2023 13:37-0500 Heart rate 89 /min Dr. Gerardo García Work Phone: [facility] 11-06-2023 13:37-0500 Respiratory rate 16 /min Dr. Gerardo García Work Phone: [facility] 11-06-2023 13:37-0500 SaO2% (BldA) [Mass fraction] 100 % Dr. Gerardo García Work Phone: [facility] 11-06-2023 09:46-0500 Body height 172.[address] Gerardo García Work Phone: [facility] 11-06-2023 09:46-0500 Body temperature 97.6 [degF] Dr. Gerardo García Work Phone: [facility] 11-06-2023 09:46-0500 Diastolic blood pressure 87 mm[Hg] Dr. Gerardo García Work Phone: [facility] 11-06-2023 09:46-0500 Systolic blood pressure 142 mm[Hg] Dr. Gerardo García Work Phone: [facility] 10-09-2023 21:00-0500 Heart rate 93 /min Dr. Gerardo García Work Phone: [facility] 10-09-2023 21:00-0500 Respiratory rate 24 /min Dr. Gerardo García Work Phone: [facility] 10-09-2023 21:00-0500 SaO2% (BldA) [Mass fraction] 97 % Dr. Gerardo García Work Phone: [facility] 10-09-2023 18:25-0500 Diastolic blood pressure 71 mm[Hg] Dr. Gerardo García Work Phone: [facility] 10-09-2023 18:25-0500 Systolic blood pressure 128 mm[Hg] Dr. Gerardo García Work Phone: [facility] 10-09-2023 18:12-0500 Body mass index (BMI) [Ratio] 26.6 kg/m2 Dr. Gerardo García Work Phone: [facility] 10-09-2023 18:12-0500 Body weight 79.[address] Gerardo García Work Phone: [facility] 10-09-2023 13:34-0500 Body height 172.[address] Gerardo García Work Phone: [facility] 10-09-2023 13:34-0500 Body temperature 97.6 [degF] Dr. Gerardo García Work Phone: 8(208)310-614098 [place] [address] 09-25-2023 10:14-0500 Body weight 78.[address] Gerardo García Work Phone: 3(010)990-437198 [place] [address] 09-22-2023 11:11-0400 Heart rate 97 /min Dr. Gerardo García Work Phone: 4(255)455-135098 [place] [address] 09-22-2023 07:44-0400 Body temperature 98.6 [degF] Dr. Gerardo García Work Phone: 5(361)083-518298 [place] [address] 09-22-2023 07:44-0400 Diastolic blood pressure 71 mm[Hg] Dr. Gerardo García Work Phone: 6(811)525-205898 [place] [address] 09-22-2023 07:44-0400 Respiratory rate 16 /min Dr. Gerardo García Work Phone: 8(531)016-446598 [place] [address] 09-22-2023 07:44-0400 SaO2% (BldA) [Mass fraction] 95 % Dr. Gerardo García Work Phone: [facility] 09-22-2023 07:44-0400 Systolic blood pressure 140 mm[Hg] Dr. Gerardo García Work Phone: [facility] 09-22-2023 01:51-0400 Body mass index (BMI) [Ratio] 26.7 kg/m2 Dr. Gerardo García Work Phone: 8(813)555-623798 [place] [address] 09-22-2023 01:51-0400 Body weight 80.[address] Gerardo García Work Phone: 2(985)411-500798 [place] [address] 09-20-2023 11:43-0400 Body height 172.[address] Gerardo García Work Phone: 8(833)240-152398 [place] [address] 09-19-2023 13:50-0400 Diastolic blood pressure 64 mm[Hg] Dr. Gerardo García Work Phone: 3(359)171-156103 [place] [address] 09-19-2023 13:50-0400 Heart rate 74 /min Dr. Gerardo García Work Phone: 0(261)325-061503 [place] [address] 09-19-2023 13:50-0400 Respiratory rate 16 /min Dr. Gerardo García Work Phone: 9(414)255-561303 [place] [address] 09-19-2023 13:50-0400 SaO2% (BldA) [Mass fraction] 95 % Dr. Geradro García Work Phone: 0(630)654-320803 [place] [address] 09-19-2023 13:50-0400 Systolic blood pressure 106 mm[Hg] Dr. Gerardo García Work Phone: 3(654)327-696803 [place] [address] 09-19-2023 09:45-0400 Body mass index (BMI) [Ratio] 28.2 kg/m2 Dr. Gerardo García Work Phone: 9(051)013-594003 [place] [address] 09-19-2023 09:45-0400 Body weight 84.[address] Gerardo García Work Phone: 8(246)202-817203 [place] [address] 09-19-2023 09:24-0400 Body height 172.[address] Gerardo García Work Phone: 3(040)266-465103 [place] [address] 09-19-2023 09:24-0400 Body temperature 97.3 [degF] Dr. Gerardo García Work Phone: 9(595)013-830803 [place] [address] 08-07-2023 17:01-0400 Body temperature 98.1 [degF] Dr. Gerardo García Work Phone: 3(340)899-797903 [place] [address] 08-07-2023 17:01-0400 Diastolic blood pressure 73 mm[Hg] Dr. Gerardo García Work Phone: 1(410)708-580003 [place] [address] 08-07-2023 17:01-0400 Heart rate 95 /min Dr. Gerardo García Work Phone: 8(173)462-552303 [place] [address] 08-07-2023 17:01-0400 Respiratory rate 18 /min Dr. Gerardo García Work Phone: [facility] 08-07-2023 17:01-0400 SaO2% (BldA) [Mass fraction] 100 % Dr. Gerardo García Work Phone: [facility] 08-07-2023 17:01-0400 Systolic blood pressure 130 mm[Hg] Dr. Gerardo García Work Phone: 3(550)557-124198 [place] [address] 08-06-2023 09:14-0400 Body height 172.[address] Gerardo García Work Phone: 1(100)471-938498 [place] [address] 08-06-2023 09:14-0400 Body mass index (BMI) [Ratio] 28.2 kg/m2 Dr. Gerardo García Work Phone: 8(853)321-973298 [place] [address] 08-06-2023 09:14-0400 Body weight 84.[address] Gerardo García Work Phone: 1(062)801-255598 [place] [address] 06-08-2023 11:46-0400 Body temperature 98.3 [degF] Dr. Gerardo García Work Phone: 7(314)545-839985 [address] 06-08-2023 11:46-0400 Diastolic blood pressure 68 mm[Hg] Dr. Gerardo García Work Phone: 5(429)283-385285 [address] 06-08-2023 11:46-0400 Heart rate 71 /min Dr. Gerardo García Work Phone: 1(395)298-748298 [place] [address] 06-08-2023 11:46-0400 Respiratory rate 16 /min Dr. Gerardo García Work Phone: [facility] 06-08-2023 11:46-0400 SaO2% (BldA) [Mass fraction] 97 % Dr. Gerardo García Work Phone: [facility] 06-08-2023 11:46-0400 Systolic blood pressure 119 mm[Hg] Dr. Gerardo García Work Phone: 0(407)421-985698 [place] [address] 06-08-2023 09:51-0400 Body height 172.[address] Gerardo García Work Phone: [facility] 06-08-2023 09:51-0400 Body mass index (BMI) [Ratio] 27.9 kg/m2 Dr. Gerardo García Work Phone: [facility] 06-08-2023 09:51-0400 Body weight 83.[address] Gerardo García Work Phone: [facility] 06-07-2023 14:17-0400 Diastolic blood pressure 75 mm[Hg] Dr. Gerardo García Work Phone: [facility] 06-07-2023 14:17-0400 Heart rate 72 /min Dr. Gerardo García Work Phone: [facility] 06-07-2023 14:17-0400 Respiratory rate 16 /min Dr. Gerardo García Work Phone: [facility] 06-07-2023 14:17-0400 SaO2% (BldA) [Mass fraction] 96 % Dr. Gerardo García Work Phone: [facility] 06-07-2023 14:17-0400 Systolic blood pressure 129 mm[Hg] Dr. Gerardo García Work Phone: [facility] 06-07-2023 13:11-0400 Body mass index (BMI) [Ratio] 28.1 kg/m2 Dr. Gerardo García Work Phone: [facility] 06-07-2023 13:11-0400 Body temperature 97.9 [degF] Dr. Gerardo García Work Phone: [facility] 06-07-2023 13:11-0400 Body weight 83.[address] Gerardo García Work Phone: [facility] 06-06-2023 14:07-0400 Diastolic blood pressure 69 mm[Hg] Dr. Gerardo García Work Phone: [facility] 06-06-2023 14:07-0400 Heart rate 79 /min Dr. Gerardo García Work Phone: [facility] 06-06-2023 14:07-0400 Systolic blood pressure 122 mm[Hg] Dr. Gerardo García Work Phone: [facility] 06-06-2023 13:00-0400 Body height 172.[address] Gerardo García Work Phone: [facility] 06-06-2023 13:00-0400 Body mass index (BMI) [Ratio] 28.1 kg/m2 Dr. Gerardo García Work Phone: [facility] 06-06-2023 13:00-0400 Body temperature 96.7 [degF] Dr. Gerardo García Work Phone: 4(825)138-256798 [place] [address] 06-06-2023 13:00-0400 Body weight 83.[address] Gerardo García Work Phone: 9(404)225-469798 [place] [address] 06-06-2023 13:00-0400 Respiratory rate 16 /min Dr. Gerardo García Work Phone: [facility] 06-06-2023 13:00-0400 SaO2% (BldA) [Mass fraction] 96 % Dr. Gerardo García Work Phone: [facility] 06-05-2023 14:18-0400 Diastolic blood pressure 62 mm[Hg] Dr. Gerardo García Work Phone: 6(121)096-174798 [place] [address] 06-05-2023 14:18-0400 Heart rate 77 /min Dr. Gerardo García Work Phone: [facility] 06-05-2023 14:18-0400 Systolic blood pressure 140 mm[Hg] Dr. Gerardo García Work Phone: 7(834)813-892698 [place] [address] 06-05-2023 12:55-0400 Body height 172.[address] Gerardo García Work Phone: [facility] 06-05-2023 12:55-0400 Body mass index (BMI) [Ratio] 28.1 kg/m2 Dr. Gerardo García Work Phone: 6(891)972-098798 [place] [address] 06-05-2023 12:55-0400 Body temperature 96.5 [degF] Dr. Gerardo García Work Phone: [facility] 06-05-2023 12:55-0400 Body weight 83.[address] Gerardo García Work Phone: [facility] 06-05-2023 12:55-0400 Respiratory rate 14 /min Dr. Gerardo García Work Phone: [facility] 06-05-2023 12:55-0400 SaO2% (BldA) [Mass fraction] 95 % Dr. Gerardo García Work Phone: [facility] 05-22-2023 13:26-0400 Body temperature 97.8 [degF] Dr. Gerardo García Work Phone: [facility] 05-22-2023 13:26-0400 Diastolic blood pressure 83 mm[Hg] Dr. Gerardo García Work Phone: [facility] 05-22-2023 13:26-0400 Heart rate 79 /min Dr. Gerardo García Work Phone: [facility] 05-22-2023 13:26-0400 Respiratory rate 18 /min Dr. Gerardo García Work Phone: [facility] 05-22-2023 13:26-0400 SaO2% (BldA) [Mass fraction] 98 % Dr. Gerardo García Work Phone: [facility] 05-22-2023 13:26-0400 Systolic blood pressure 144 mm[Hg] Dr. Gerardo García Work Phone: [facility] 05-21-2023 14:53-0400 Body temperature 96.1 [degF] Dr. Gerardo García Work Phone: [facility] 05-21-2023 14:53-0400 Diastolic blood pressure 66 mm[Hg] Dr. Gerardo García Work Phone: [facility] 05-21-2023 14:53-0400 Heart rate 75 /min Dr. Gerardo García Work Phone: [facility] 05-21-2023 14:53-0400 Respiratory rate 16 /min Dr. Gerardo García Work Phone: [facility] 05-21-2023 14:53-0400 SaO2% (BldA) [Mass fraction] 97 % Dr. Gerardo García Work Phone: [facility] 05-21-2023 14:53-0400 Systolic blood pressure 126 mm[Hg] Dr. Gerardo García Work Phone: [facility] 05-21-2023 13:11-0400 Body height 172.[address] Gerardo García Work Phone: [facility] 05-21-2023 13:11-0400 Body mass index (BMI) [Ratio] 27.6 kg/m2 Dr. Gerardo García Work Phone: 0(729)992-152898 [place] [address] 05-21-2023 13:11-0400 Body weight 82.[address] Gerardo García Work Phone: [facility] 05-20-2023 13:04-0400 Body temperature 97.5 [degF] Dr. Gerardo García Work Phone: [facility] 05-20-2023 13:04-0400 Diastolic blood pressure 70 mm[Hg] Dr. Gerardo García Work Phone: [facility] 05-20-2023 13:04-0400 Heart rate 73 /min Dr. Gerardo García Work Phone: [facility] 05-20-2023 13:04-0400 Respiratory rate 18 /min Dr. Gerardo García Work Phone: [facility] 05-20-2023 13:04-0400 SaO2% (BldA) [Mass fraction] 97 % Dr. Gerardo García Work Phone: [facility] 05-20-2023 13:04-0400 Systolic blood pressure 131 mm[Hg] Dr. Gerardo García Work Phone: [facility] 05-19-2023 13:11-0400 Body temperature 98 [degF] Dr. Gerardo García Work Phone: [facility] 05-19-2023 13:11-0400 Diastolic blood pressure 71 mm[Hg] Dr. Gerardo García Work Phone: [facility] 05-19-2023 13:11-0400 Heart rate 72 /min Dr. Gerardo García Work Phone: [facility] 05-19-2023 13:11-0400 Respiratory rate 18 /min Dr. Gerardo García Work Phone: [facility] 05-19-2023 13:11-0400 SaO2% (BldA) [Mass fraction] 97 % Dr. Gerardo García Work Phone: [facility] 05-19-2023 13:11-0400 Systolic blood pressure 130 mm[Hg] Dr. Gerardo García Work Phone: [facility] 05-18-2023 15:04-0400 Body temperature 97 [degF] Dr. Gerardo García Work Phone: [facility] 05-18-2023 15:04-0400 Diastolic blood pressure 63 mm[Hg] Dr. Gerardo García Work Phone: [facility] 05-18-2023 15:04-0400 Heart rate 74 /min Dr. Gerardo García Work Phone: [facility] 05-18-2023 15:04-0400 Respiratory rate 16 /min Dr. Gerardo García Work Phone: [facility] 05-18-2023 15:04-0400 SaO2% (BldA) [Mass fraction] 97 % Dr. Gerardo García Work Phone: [facility] 05-18-2023 15:04-0400 Systolic blood pressure 114 mm[Hg] Dr. Gerardo García Work Phone: [facility] 05-18-2023 13:55-0400 Body height 172.[address] Gerardo García Work Phone: [facility] 05-18-2023 13:55-0400 Body mass index (BMI) [Ratio] 27.3 kg/m2 Dr. Gerardo García Work Phone: [facility] 05-18-2023 13:55-0400 Body weight 81.[address] Gerardo García Work Phone: [facility] 05-17-2023 14:48-0400 Body temperature 96.4 [degF] Dr. Gerardo García Work Phone: [facility] 05-17-2023 14:48-0400 Diastolic blood pressure 65 mm[Hg] Dr. Gerardo García Work Phone: [facility] 05-17-2023 14:48-0400 Heart rate 66 /min Dr. Gerardo García Work Phone: [facility] 05-17-2023 14:48-0400 Respiratory rate 16 /min Dr. Gerardo García Work Phone: [facility] 05-17-2023 14:48-0400 SaO2% (BldA) [Mass fraction] 99 % Dr. Gerardo García Work Phone: [facility] 05-17-2023 14:48-0400 Systolic blood pressure 122 mm[Hg] Dr. Gerardo García Work Phone: [facility] 05-17-2023 13:56-0400 Body height 172.[address] Gerardo García Work Phone: [facility] 05-16-2023 15:09-0400 Body temperature 97.1 [degF] Dr. Gerardo García Work Phone: [facility] 05-16-2023 15:09-0400 Diastolic blood pressure 64 mm[Hg] Dr. Gerardo García Work Phone: [facility] 05-16-2023 15:09-0400 Heart rate 64 /min Dr. Gerardo García Work Phone: [facility] 05-16-2023 15:09-0400 Respiratory rate 16 /min Dr. Gerardo García Work Phone: [facility] 05-16-2023 15:09-0400 SaO2% (BldA) [Mass fraction] 95 % Dr. Gerardo García Work Phone: [facility] 05-16-2023 15:09-0400 Systolic blood pressure 116 mm[Hg] Dr. Gerardo García Work Phone: [facility] 05-16-2023 14:05-0400 Body height 172.[address] Gerardo García Work Phone: 0([phone] [place] [address] 05-16-2023 14:05-0400 Body mass index (BMI) [Ratio] 27.6 kg/m2 Dr. Gerardo García Work Phone: 1(692)[phone] [place] [address] 05-16-2023 14:05-0400 Body weight 82.[address] Gerardo García Work Phone: [facility] 04-10-2023 09:17-0400 Body temperature 97.4 [degF] Dr. Gerardo García Work Phone: 4(198)[phone] [place] [address] 04-10-2023 09:17-0400 Diastolic blood pressure 84 mm[Hg] Dr. Gerardo García Work Phone: [facility] 04-10-2023 09:17-0400 Heart rate 57 /min Dr. Gerardo García Work Phone: [facility] 04-10-2023 09:17-0400 Respiratory rate 18 /min Dr. Gerardo García Work Phone: [facility] 04-10-2023 09:17-0400 SaO2% (BldA) [Mass fraction] 99 % Dr. Gerardo García Work Phone: [facility] 04-10-2023 09:17-0400 Systolic blood pressure 130 mm[Hg] Dr. Gerardo García Work Phone: [facility] 01-24-2023 14:01-0500 Body temperature 97.5 [degF] Dr. Gerardo García Work Phone: [facility] 01-24-2023 14:01-0500 Diastolic blood pressure 59 mm[Hg] Dr. Gerardo García Work Phone: [facility] 01-24-2023 14:01-0500 Heart rate 67 /min Dr. Gerardo García Work Phone: [facility] 01-24-2023 14:01-0500 Respiratory rate 16 /min Dr. Gerardo García Work Phone: [facility] 01-24-2023 14:01-0500 SaO2% (BldA) [Mass fraction] 96 % Dr. Gerardo García Work Phone: [facility] 01-24-2023 14:01-0500 Systolic blood pressure 136 mm[Hg] Dr. Gerardo García Work Phone: 3([phone] [place] [address] 01-24-2023 11:13-0500 Body height 172.[address] Gerardo García Work Phone: [facility] 01-24-2023 11:13-0500 Body mass index (BMI) [Ratio] 29.3 kg/m2 Dr. Gerardo García Work Phone: [facility] 01-24-2023 11:13-0500 Body weight 87.[address] Gerardo García Work Phone: [facility] 01-02-2023 08:50-0500 Body temperature 96.8 [degF] Dr. Gerardo García Work Phone: [facility] 08-01-2022 10:31-0400 SaO2% (BldA) [Mass fraction] 96 % Dr. Gerardo García Work Phone: [facility] Work Phone: 08-01-2022 10:00-0400 Body temperature 97.6 [degF] Dr. Gerardo García Work Phone: [facility] Work Phone: 08-01-2022 10:00-0400 Diastolic blood pressure 80 mm[Hg] Dr. Gerardo García Work Phone: [facility] Work Phone: 08-01-2022 10:00-0400 Heart rate 83 /min Dr. Gerardo García Work Phone: [facility] Work Phone: 08-01-2022 10:00-0400 Respiratory rate 18 /min Dr. Gerardo García Work Phone: [facility] Work Phone: 08-01-2022 10:00-0400 Systolic blood pressure 150 mm[Hg] Dr. Gerardo García Work Phone: [facility] Work Phone: 08-01-2022 05:24-0400 Body weight 92.[address] Gerardo García Work Phone: [facility] Work Phone: 07-30-2022 10:06-0400 Body height 172.[address] Gerardo García Work Phone: [facility] Work Phone: 07-29-2022 16:47-0400 Body mass index (BMI) [Ratio] 29.7 kg/m2 Dr. Gerardo García Work Phone: [facility] Work Phone: 07-28-2022 08:25-0400 Body temperature 98.3 [degF] Dr. Gerardo García Work Phone: [facility] Work Phone: 07-28-2022 08:25-0400 Diastolic blood pressure 62 mm[Hg] Dr. Gerardo García Work Phone: [facility] Work Phone: 07-28-2022 08:25-0400 Heart rate 72 /min Dr. Gerardo García Work Phone: [facility] Work Phone: 07-28-2022 08:25-0400 Respiratory rate 16 /min Dr. Gerardo García Work Phone: [facility] Work Phone: 07-28-2022 08:25-0400 SaO2% (BldA) [Mass fraction] 99 % Dr. Gerardo García Work Phone: [facility] Work Phone: 07-28-2022 08:25-0400 Systolic blood pressure 109 mm[Hg] Dr. Gerardo García Work Phone: [facility] Work Phone: 07-28-2022 06:35-0400 Body height 172.[address] Gerardo García Work Phone: [facility] Work Phone: 07-28-2022 06:35-0400 Body mass index (BMI) [Ratio] 29.7 kg/m2 Dr. Gerardo García Work Phone: [facility] Work Phone: 07-28-2022 06:35-0400 Body weight 88.[address] Gerardo García Work Phone: [facility] Work Phone: 07-04-2022 14:24-0400 Body height 172.[address] Gerardo García Work Phone: [facility] Work Phone: 07-04-2022 14:17-0400 Body mass index (BMI) [Ratio] 29.8 kg/m2 Dr. Gerardo García Work Phone: [facility] Work Phone: 07-04-2022 14:17-0400 Body temperature 97.6 [degF] Dr. Gerardo García Work Phone: [facility] Work Phone: 07-04-2022 14:17-0400 Body weight 89.[address] Gerardo García Work Phone: [facility] Work Phone: 07-04-2022 14:17-0400 Diastolic blood pressure 83 mm[Hg] Dr. Gerardo García Work Phone: [facility] Work Phone: 07-04-2022 14:17-0400 Heart rate 73 /min Dr. Gerardo García Work Phone: [facility] Work Phone: 07-04-2022 14:17-0400 Respiratory rate 15 /min Dr. Gerardo García Work Phone: [facility] Work Phone: 07-04-2022 14:17-0400 SaO2% (BldA) [Mass fraction] 97 % Dr. Gerardo García Work Phone: [facility] Work Phone: 07-04-2022 14:17-0400 Systolic blood pressure 160 mm[Hg] Dr. Gerardo García Work Phone: [facility] Work Phone: 12-30-2021 14:55-0500 Body temperature 97.9 [degF] Dr. Gerardo García Work Phone: [facility] Work Phone: 12-30-2021 14:55-0500 Diastolic blood pressure 63 mm[Hg] Dr. Gerardo García Work Phone: [facility] Work Phone: 12-30-2021 14:55-0500 Heart rate 68 /min Dr. Gerardo García Work Phone: [facility] Work Phone: 12-30-2021 14:55-0500 Respiratory rate 16 /min Dr. Gerardo García Work Phone: [facility] Work Phone: 12-30-2021 14:55-0500 SaO2% (BldA) [Mass fraction] 92 % Dr. Gerardo García Work Phone: [facility] Work Phone: 12-30-2021 14:55-0500 Systolic blood pressure 137 mm[Hg] Dr. Gerardo García Work Phone: [facility] Work Phone: 12-30-2021 12:10-0500 Body height 172.[address] Gerardo García Work Phone: [facility] Work Phone: 12-30-2021 12:10-0500 Body mass index (BMI) [Ratio] 28.1 kg/m2 Dr. Gerardo García Work Phone: [facility] Work Phone: 12-30-2021 12:10-0500 Body weight [address] Gerardo García Work Phone: [facility] Work Phone: 12-05-2021 14:35-0500 Body mass index (BMI) [Ratio] 27.9 kg/m2 Dr. Gerardo García Work Phone: [facility] Work Phone: 12-05-2021 14:35-0500 Body temperature 97.6 [degF] Dr. Gerardo García Work Phone: [facility] Work Phone: 12-05-2021 14:35-0500 Body weight 83.[address] Gerardo García Work Phone: [facility] Work Phone: 12-05-2021 14:35-0500 Diastolic blood pressure 83 mm[Hg] Dr. Gerardo García Work Phone: [facility] Work Phone: 12-05-2021 14:35-0500 Heart rate 87 /min Dr. Gerardo García Work Phone: [facility] Work Phone: 12-05-2021 14:35-0500 Respiratory rate 16 /min Dr. Gerardo García Work Phone: [facility] Work Phone: 12-05-2021 14:35-0500 SaO2% (BldA) [Mass fraction] 96 % Dr. Gerardo García Work Phone: [facility] Work Phone: 12-05-2021 14:35-0500 Systolic blood pressure 150 mm[Hg] Dr. Gerardo García Work Phone: [facility] Work Phone: 11-29-2021 13:30-0500 Body temperature 98.4 [degF] Dr. Gerardo García Work Phone: [facility] Work Phone: 11-29-2021 13:30-0500 Diastolic blood pressure 74 mm[Hg] Dr. Gerardo García Work Phone: [facility] Work Phone: 11-29-2021 13:30-0500 Heart rate 74 /min Dr. Gerardo García Work Phone: [facility] Work Phone: 11-29-2021 13:30-0500 Respiratory rate 16 /min Dr. Gerardo García Work Phone: [facility] Work Phone: 11-29-2021 13:30-0500 SaO2% (BldA) [Mass fraction] 93 % Dr. Gerardo García Work Phone: [facility] Work Phone: 11-29-2021 13:30-0500 Systolic blood pressure 127 mm[Hg] Dr. Gerardo García Work Phone: [facility] Work Phone: 11-29-2021 08:29-0500 Body mass index (BMI) [Ratio] 28.3 kg/m2 Dr. Gerardo García Work Phone: [facility] Work Phone: 11-29-2021 08:29-0500 Body weight 84.[address] Gerardo García Work Phone: [facility] Work Phone: 05-31-2021 15:25-0400 Body mass index (BMI) [Ratio] 27.1 kg/m2 Dr. Gerardo García Work Phone: [facility] Encounters Encounter Date Encounter Type Care Provider Facility Start: 09-21-2025 ambulatory [facility] Facility:[facility] Start: 09-15-2025 ambulatory [facility] Facility:[facility] Start: 09-03-2025 End: 09-03-2025 ambulatory [facility] Facility:[facility] Start: 09-01-2025 End: 09-01-2025 ambulatory [facility] Facility:[id number] Start: 08-03-2025 End: 08-03-[address] Gerardo García MD Work Phone: -Laboratory Phy Office 3rd Flr Start: 08-03-2025 End: 08-03-[address] Gerardo García MD -Laboratory Phy Office 3rd Flr Start: 08-03-2025 End: 08-03-2025 ambulatory [facility] Facility:[facility] Start: 07-13-2025 ambulatory Lloyd Neves Facility :[facility] Start: 07-09-2025 End: 07-09-2025 ambulatory CEHIKH HIGH MD Facility:[id number] Start: 07-08-2025 End: 07-08-2025 Telephone encounter Corina Felix APRN.CNP Work Phone: Urology Comment on above: Patient Update Start: 07-06-2025 End: 07-06-[address] Gerardo García MD Work Phone: -Laboratory Phy Office 3rd Flr Start: 07-06-2025 End: 07-06-[address] Gerardo Garcaí MD -Laboratory Phy Office 3rd Flr Start: 07-06-2025 End: 07-06-2025 ambulatory [facility] Facility:[facility] Start: 06-15-2025 End: 06-15-2025 ambulatory ROCÍO OLIVEIRA Facility:[id number] Start: 04-20-2025 End: 04-20-2025 ambulatory GHULAM RIVERA Facility:[id number] Start: 04-15-2025 End: 04-15-[address] Gerardo García MD Work Phone: [facility] Work Phone: Start: 04-15-2025 End: 04-15-[address] Luz Maria Matthews DO -Laboratory Work Phone: Start: 04-15-2025 End: 04-15-2025 ambulatory [facility] Facility:[facility] Start: 03-20-2025 End: 03-20-[address] Gerardo García MD -Laboratory Specimen Work Phone: Start: 03-20-2025 End: 03-20-2025 ambulatory [facility] Facility:[facility] Start: 03-03-2025 End: 03-03-2025 Patient encounter procedure Cristina DEY -[facility] Work Phone: Start: 03-03-2025 End: 03-03-2025 ambulatory Gerardo García Facility:[facility] Start: 02-23-2025 End: 02-23-2025 ambulatory CHEIKH HIGH MD Facility:[id number] Start: 02-02-2025 End: 02-02-[address] Gerardo García MD Work Phone: [facility] Work Phone: Start: 02-02-2025 End: 02-02-[address] Gerardo García MD -Laboratory, Phy Office 3rd [facility] Start: 02-02-2025 End: 02-02-2025 ambulatory [facility] Caio Ricky Facility:[facility] Start: 01-27-2025 ambulatory CORINA RUFFIN [facility] ility:[id number] Start: 01-27-2025 End: 01-27-2025 Subsequent hospital visit by physician [facility] Comment on above: Nephrostomy tube ble ed (HCC) [T83.83XA] Start: 01-27-2025 End: 01-27-2025 Office outpatient new 30 minutes Corina Ruffin [employer] ATTENDANT Work Phone: Urology Comment on above: Nephrostomy tube ble ed (HCC) (Primary Dx) Start: 01-27-2025 End: 01-27-2025 ambulatory CORINA RUFFIN Facility:[id number] Start: 01-26-2025 End: 01-26-2025 ambulatory In[facility] [...] and management of inpatient GERARDO CAIO GARCÍA Facility:[id number] Start: 01-12-2025 End: 01-12-2025 ambulatory ROCÍO OLIVEIRA Facility:[id number] Start: 01-07-2025 End: 01-07-[address] Hunter Olvera MD -Laboratory Work Phone: Start: 01-07-2025 End: 01-07-2025 ambulatory Hunter Olvera Facility:[facility] Start: 12-22-2024 End: 12-22-2024 Patient encounter procedure Jin Antonio MD Work Phone: Urology Comment on above: Hydronephrosis, unsp ecified hydronephrosis type [N13.30] (Primary Dx) Start: 12-22-2024 End: 12-22-2024 ambulatory JIN ANTONIO Facility:[id number] Start: 11-17-2024 End: 11-17-2024 ambulatory UNKNOWN PROVIDER Facility:[id number] Start: 11-07-2024 End: 11-07-2024 Telephone encounter Jin Antonio MD Work Phone: Urology Comment on above: Patient Question Start: 11-03-2024 End: 11-03-[address] Gerardo García MD -Laboratory, Phy Office 3rd Flr Start: 11-03-2024 End: 11-03-2024 ambulatory Gerardo García Facility:[facility] Start: 10-27-2024 End: 10-27-[address] Gerardo García MD -Laboratory, Phy Office 3rd Flr Start: 10-27-2024 End: 10-27-2024 [facility] Start: 09-29-2024 ambulatory GHULAM Sheridan y:[id number] Start: 09-29-2024 End: 09-29-2024 Subsequent hospital visit by physician Ghulam Rivera DO Work Phone: INTERVENTIONAL RADIOLOGY Comment on above: Other hydronephrosis [N13.39] Start: 09-06-2024 End: 09-08-2024 Evaluation and management of inpatient JOHN WEEMS Facility:[id number] Start: 08-29-2024 End: 09-01-2024 Telephone encounter Jin Antonio MD Work Phone: Urology Comment on above: Guest Relations Agent - O ther (Nephrostomy tube supplies ) [...] Phone: MR PROVIDER ADULT Comment on above: Guest Relations Agent - C hronic Care (Set up for L NT reinsertion) Start: 05-13-2024 End: 05-13-2024 Subsequent hospital visit by physician Jona Clark MD Work Phone: MR INTERVENTIONAL RADIOLOGY Comment on above: Hydronephrosis, unsp ecified hydronephrosis type [N13.30] Start: 04-23-2024 Telephone encounter Corina oscar HAZARDOUS MATERIALS DRIVER.ICE [employer] ATTENDANT Work Phone: Urology Comment on above: Patient Question Start: 03-18-2024 End: 03-18-2024 Orders Only Prabha Myriam HAZARDOUS MATERIALS DRIVER.ICE RINK ATTENDANT Work Phone: Urology Comment on above: Hydronephrosis of le ft kidney (Primary Dx) Orders; Patient Upda te Hydronephrosis, unsp ecified hydronephrosis type [N13.30] Start: 03-17-2024 Telephone encounter Jin Antonio MD Work Phone: Urology Comment on above: Appointment Orders Start: 03-17-2024 End: 03-17-[address] Gerardo García Work Phone: [facility] Work Phone: Start: 03-17-2024 End: 03-17-[address] Gerardo García Work Phone: [facility]-Laboratory Work Phone: Start: 03-11-2024 End: 03-11-[address] Gerardo García Work Phone: [facility] Work Phone: Start: 03-03-2024 End: 03-03-2024 Patient encounter procedure Jin Antonio MD Work Phone: Urology Comment on above: Bilateral hydronephr osis (Primary Dx); LULY (acute kidney injury) (HCC) Start: 02-17-2024 Non-patient / Non-visit Dr. Lenny García Work Phone: [facility] Work Phone: Start: 02-16-2024 Non-patient / Non-visit Dr. Lenny García Work Phone: [facility] Work Phone: Start: 02-15-2024 Telephone encounter Jin Antonio MD Work Phone: Urology Comment on above: Patient Question Start: 02-15-2024 Non-patient / Non-visit Dr. Lenny García Work Phone: [facility] Work Phone: Start: 02-14-2024 End: 02-17-2024 Evaluation and management of inpatient Dr. Gerardo García Work Phone: [facility] Work Phone: Start: 02-11-2024 Telephone encounter Jin Antonio MD Work Phone: Urology Start: 02-06-2024 Patient encounter status Linwood Antonio MD Work Phone: [facility] Work Phone: Start: 02-04-2024 End: 02-04-[address] Gerardo García Work Phone: [facility] Work Phone: Start: 02-04-2024 End: 02-04-[address] Gerardo García Work Phone: [facility]-Laboratory, Phy Office 3rd Flr Start: 01-22-2024 Orders Only Prabha Louiseupt HAZARDOUS MATERIALS DRIVER.ICE RINK ATTENDANT Work Phone: Urology Comment on above: Bilateral hydronephr osis (Primary Dx) Start: 01-10-2024 End: 01-10-2024 Home visit Breann Woods RN Work Phone: [facility] Comment on above: SN AGENCY DC W VISIT Start: 01-03-2024 End: 01-03-2024 Home visit Breann Woods RN Work Phone: [facility] Comment on above: SN ROUTINE Start: 01-01-2024 ambulatory GERARDO GARCÍA Facility:[facility] Start: 01-01-2024 End: 01-01-2024 Subsequent hospital visit by physician Jose L Patel MD Work Phone: [facility] Comment on above: Bilateral hydronephr osis [N13.30] Start: 12-27-2023 End: 12-27-2023 Home visit Breann Woods RN Work Phone: [facility] Comment on above: SN ROUTINE Start: 12-25-2023 Telephone encounter Jin Antonio MD Work Phone: Urology Comment on above: Patient Question Surgery Start: 12-24-2023 End: 12-24-2023 Patient encounter procedure Jin Antonio MD Work Phone: Urology Comment on above: LULY (acute kidney in jury) (HCC) (Primary Dx); Bilateral hydronephrosis; Recurrent UTI Start: 12-21-2023 End: 12-21-2023 Home visit Emanuel Curtis RN Work Phone: [facility] Comment on above: CARE COORDINATION Start: 12-21-2023 Telephone encounter Jin Antonio MD Work Phone: Urology Comment on above: Patient Question Start: 12-20-2023 Telephone encounter Joey Mendez i RN Work Phone: [facility] Comment on above: Home Care (Drainage from right nephrostomy tube site, HTN) Start: 12-20-2023 End: 12-20-2023 Home visit Joey Strange RN Work Phone: [facility] Comment on above: SN ROUTINE Start: 11-16-2023 End: 11-17-2023 Emergency department patient visit Dr. Gerardo García Work Phone: [facility]Emergency Department Work Phone: Start: 11-13-2023 Non-patient / Non-visit Dr. Lenny García Work Phone: [facility] Work Phone: Start: 11-13-2023 Dr. Gerardo García Work Phone: [facility] Work Phone: Start: 11-12-2023 Non-patient / Non-visit Dr. Lenny García Work Phone: [facility] Work Phone: Start: 11-12-2023 Dr. Gerardo García Work Phone: [facility] Work Phone: Start: 11-11-2023 Non-patient / Non-visit Dr. Lenny García Work Phone: [facility] Work Phone: Start: 11-11-2023 Dr. Gerardo García Work Phone: [facility] Work Phone: Start: 11-10-2023 End: 11-13-2023 Evaluation and management of inpatient Dr. Gerardo García Work Phone: [facility] Work Phone: Start: 11-10-2023 End: 11-13-2023 Dr. Gerardo [facility]ía [facility] Work Phone: Start: 11-06-2023 End: 11-06-2023 Emergency department patient visit Dr. Gerardo García Work Phone: [facility] Work Phone: Start: 11-06-2023 End: 11-06-2023 Dr. Gerardo García Work Phone: [facility]-Emergency Department Work Phone: Start: 10-30-2023 End: 10-30-[address] Gerardo García Work Phone: [facility] Work Phone: Start: 10-30-2023 End: 10-30-[address] [facility] Start: 10-30-2023 End: 10-30-2023 Dr. Gerardo García Work Phone: [facility], Phy Office 3rd Flr Start: 10-23-2023 End: 10-23-[address] Gerardo García Work Phone: [facility] Work Phone: Start: 10-23-2023 End: 10-23-[address] [facility]ardo [facility] Start: 10-23-2023 End: 10-23-2023 Dr. Gerardo García [facility] Start: 10-22-2023 Telephone encounter Andres salgado MD Work Phone: Urology Comment on above: Stent Start: 10-09-2023 End: 10-09-2023 Emergency department patient visit Dr. Gerardo García Work Phone: [facility] Work Phone: Start: 10-09-2023 End: 10-09-2023 Dr. Gerardo García Work Phone: [facility]-Emergency Department Work Phone: Start: 10-08-[address] Gerardo García [facility] Office 3rd Flr Start: 10-08-2023 End: 10-08-2023 Dr. Gerardo García Work Phone: [facility], [facility] Office 3rd Flr Start: 10-05-2023 End: 10-05-[address] Gerardo García Work Phone: [facility] Work Phone: Start: 10-05-2023 End: 10-05-[address] Gerardo García Work Phone: [facility], [facility] Office 3rd Flr Start: 10-05-2023 End: 10-05-2023 Dr. Gerardo García Work Phone: [facility], [facility] Office 3rd Flr Start: 09-25-[address] Gerardo boyer Work Phone: [facility] Start: 09-25-2023 Dr. Gerardo García Work Phone: [facility] Start: 09-22-2023 Non-patient / Non-visit Dr. Lenny García Work Phone: [facility] Work Phone: Start: 09-22-2023 Dr. Gerardo García Work Phone: [facility] Work Phone: Start: 09-21-2023 Non-patient / Non-visit Dr. Lenny García Work Phone: [facility] Work Phone: Start: 09-21-2023 Dr. Gerardo García Work Phone: [facility] Work Phone: Start: 09-20-2023 Non-patient / Non-visit Dr. Lenny García Work Phone: [facility] Work Phone: Start: 09-20-2023 Dr. Gerardo García Work Phone: [facility] Work Phone: Start: 09-19-2023 Non-patient / Non-visit Dr. Lenny García Work Phone: [facility] Work Phone: Start: 09-19-2023 End: 09-22-2023 Evaluation and management of inpatient Dr. Gerardo García Work Phone: [facility] Work Phone: Start: 09-19-2023 End: 09-22-2023 Dr. Gerardo García Work Phone: [facility] 3 Work Phone: Start: 08-17-2023 End: 08-17-[address] Gerardo García Work Phone: [facility]-Laboratory, Specimen Work Phone: Start: 08-17-2023 End: 08-17-2023 Dr. Gerardo García Work Phone: [facility]-Laboratory, Specimen Work Phone: Start: 08-14-[address] [facility]er [facility]: Start: 08-14-2023 Dr. Gerardo García Work Phone: [facility] Work Phone: Start: 08-10-2023 End: 08-10-[address] Gerardo García Work Phone: [facility] Work Phone: Start: 08-10-2023 End: 08-10-[address] Gerardo García Work Phone: [facility]-Laboratory Work Phone: Start: 08-10-2023 End: 08-10-2023 Dr. Gerardo García Work Phone: [facility]-Laboratory Work Phone: Start: 08-07-2023 Non-patient / Non-visit Dr. Lenny García Work Phone: [facility] Work Phone: Start: 08-07-2023 Dr. Gerardo García Work Phone: [facility] Work Phone: Start: 08-06-2023 Non-patient / Non-visit Dr. Lenny García Work Phone: [facility] Work Phone: Start: 08-06-2023 Dr. Gerardo García Work Phone: [facility] Work Phone: Start: 08-05-2023 Non-patient / Non-visit Dr. Lenny García Work Phone: [facility] Work Phone: Start: 08-05-2023 Dr. Gerardo García Work Phone: [facility] Work Phone: Start: 08-04-2023 Non-patient / Non-visit Dr. Lenny García Work Phone: [facility] Work Phone: Start: 08-04-2023 Dr. Gerardo García Work Phone: [facility] Work Phone: Start: 08-03-2023 Non-patient / Non-visit Dr. Lenny García Work Phone: [facility] Work Phone: Start: 08-03-2023 Dr. Gerardo García Work Phone: [facility] Work Phone: Start: 08-02-2023 End: 08-07-2023 Evaluation and management of inpatient Dr. Gerardo García Work Phone: [facility] Work Phone: Start: 08-02-2023 End: 08-07-2023 Dr. Gerardo García Work Phone: [facility] Work Phone: Start: 07-20-2023 End: 07-20-[address] Gerardo García Work Phone: [facility] Work Phone: Start: 07-20-2023 End: 07-20-[address] Gerardo García Work Phone: [facility]-Pulmonary Services/Neurology Work Phone: Start: 07-20-2023 End: 07-20-2023 Dr. Gerardo García Work Phone: [facility]-Pulmonary Services/Neurology Work Phone: Start: 06-19-2023 End: 06-19-[address] Gerardo García Work Phone: [facility] Work Phone: Start: 06-19-2023 End: 06-19-[address] Gerardo García [facility] Start: 06-19-2023 End: 06-19-2023 Dr. Gerardo García Work Phone: [facility]-Laboratory, Phy Office 3rd Flr Start: 06-11-2023 End: 06-11-[address] Gerardo García Work Phone: [facility] Work Phone: Start: 06-11-2023 End: 06-11-[address] [facility]: Start: 06-11-2023 End: 06-11-2023 Dr. Gerardo García [facility]: Start: 06-08-2023 End: 06-08-2023 Admission to same day surgery center Dr. Gerardo García Work Phone: [facility]-Surgical Day Care Start: 06-07-2023 End: 06-07-[address] [facility]: Start: 06-06-2023 End: 06-06-[address] Gerardo García Work Phone: [facility] Work Phone: Start: 06-06-2023 End: 06-06-[address] [facility]: Start: 06-05-2023 End: 06-05-[address] Gerardo García Work Phone: [facility] Work Phone: Start: 06-05-2023 End: 06-05-[address] [facility]: Start: 05-28-2023 End: 05-28-[address] Gerardo García Work Phone: [facility] Work Phone: Start: 05-28-2023 End: 05-28-[address] Gerardo García Work Phone: [facility]-Laboratory, Specimen Work Phone: Start: 05-22-2023 End: 05-22-[address] Gerardo García Work Phone: [facility] Work Phone: Start: 05-22-2023 End: 05-22-[address] Gerardo García Work Phone: [facility]-Medical Out Work Phone: Start: 05-21-2023 End: 05-21-[address] Gerardo García Work Phone: [facility] Work Phone: Start: 05-21-2023 End: 05-21-[address] [facility]: Start: 05-20-2023 End: 05-20-[address] Gerardo García Work Phone: [facility] Work Phone: Start: 05-20-2023 End: 05-20-[address] [facility]ía [facility]: Start: 05-19-2023 End: 05-19-[address] Gerardo García Work Phone: [facility] Work Phone: Start: 05-19-2023 End: 05-19-[address] [facility]ía [facility]: Start: 05-18-2023 End: 05-18-[address] [facility]ía [facility]: Start: 05-17-2023 End: 05-17-[address] Gerardo García Work Phone: [facility] Work Phone: Start: 05-17-2023 End: 05-17-[address] Gerardo García Work Phone: [facility]-Medical Out Work Phone: Start: 05-16-2023 End: 05-16-[address] Gerardo García Work Phone: [facility] Work Phone: Start: 05-16-2023 End: 05-16-[address] [facility]: Start: 05-14-2023 End: 05-14-[address] Gerardo García Work Phone: [facility] Work Phone: Start: 05-14-2023 End: 05-14-[address] Gerardo García Work Phone: [facility]-Pulmonary Services/Neurology Start: 05-11-2023 End: 05-11-[address] Gerardo García Work Phone: [facility] Work Phone: Start: 05-11-2023 End: 05-11-[address] Gerardo García Work Phone: [facility]-Laboratory, Specimen Start: 05-10-2023 End: 05-10-[address] Gerardo García Work Phone: [facility] Work Phone: Start: 05-10-2023 End: 05-10-[address] Gerardo García Work Phone: [facility]-Laboratory, Specimen Start: 04-10-2023 End: 04-10-[address] Gerardo García Work Phone: [facility] Start: 04-03-2023 End: 04-03-[address] Gerardo García Work Phone: [facility]-Ultrasound, [facility] Start: 03-27-2023 End: 03-27-[address] Gerardo García Work Phone: [facility] Start: 02-22-2023 End: 02-22-[address] Gerardo García Work Phone: [facility]-Radiology, [facility] Start: 01-24-2023 End: 01-24-2023 Admission to same day surgery center Dr. Gerardo García Work Phone: [facility]-Surgical Day Care Start: 01-22-2023 End: 01-22-[address] Gerardo García Work Phone: [facility] Work Phone: Start: 01-22-2023 End: 01-22-[address] Gerardo García Work Phone: [facility]-Laboratory, Phy Office 3rd Flr Start: 01-22-2023 End: 01-22-[address] Gerardo García Work Phone: [facility] Work Phone: Start: 01-22-2023 End: 01-22-[address] Gerardo García Work Phone: [facility]-Pulmonary Services/Neurology Start: 01-02-2023 End: 01-02-[address] Gerardo García Work Phone: [facility] Work Phone: Start: 01-02-2023 End: 01-02-[address] Gerardo García [facility] Start: 01-02-2023 End: 01-02-[address] Gerardo García Work Phone: [facility] Start: 12-05-2022 End: 12-05-[address] Gerardo García Work Phone: [facility] Work Phone: Start: 12-05-2022 End: 12-05-[address] Gerardo García Work Phone: [facility]-Laboratory Start: 10-30-2022 End: 10-30-[address] Gerardo García [facility] Office 3rd Vtr Start: 10-27-2022 End: 10-27-[address] Gerardo García Work Phone: [facility] Work Phone: Start: 10-27-2022 End: 10-27-[address] Gerardo García [facility] Start: 10-02-2022 End: 10-02-[address] Gerardo García Work Phone: [facility] Work Phone: Start: 10-02-2022 End: 10-02-[address] Gerardo García [facility] Start: 09-20-2022 End: 09-20-[address] Gerardo García Work Phone: [facility] Start: 09-18-2022 End: 09-18-[address] Gerardo García Work Phone: [facility] Work Phone: Start: 09-18-2022 End: 09-18-[address] Ger[facility] García [facility] Start: 08-28-2022 End: 08-28-[address] Ger[facility] García [facility] Start: 08-03-2022 End: 08-03-[address] Gerardo García [facility] Fl[facility] Start: 08-01-2022 Non-patient / Non-visit Dr. Lenny García Work Phone: [facility] Start: 07-31-2022 Non-patient / Non-visit Dr. Lenny García Work Phone: [facility] Start: 07-30-2022 Non-patient / Non-visit Dr. Lenny García Work Phone: [facility] Start: 07-29-2022 Non-patient / Non-visit Dr. Lenny García Work Phone: [facility] Start: 07-29-2022 End: 08-01-2022 Evaluation and management of inpatient Dr. Gerardo García [facility] Start: 07-28-2022 End: 07-28-2022 Admission to same day surgery center Dr. Gerardo García [facility] Start: 07-28-2022 End: 07-28-[address] Gerardo García Work Phone: [facility] Work Phone: Start: 07-21-2022 End: 07-21-[address] Gerardo García Work Phone: [facility] Work Phone: Start: 07-21-2022 End: 07-21-[address] Ger[facility] García [facility] Start: 07-04-[address] Gerardo boyer Work Phone: [facility] Start: 07-04-2022 End: 07-04-[address] Gerardo García Work Phone: [facility] Start: 05-15-2022 End: 05-15-[address] Gerardo García Work Phone: [facility] Start: 05-12-2022 End: 05-12-[address] Gerardo García Work Phone: [facility] Start: 05-02-2022 End: 05-02-[address] Gerardo García [facility] Fl[facility] Start: 04-11-2022 End: 04-11-[address] Gerardo García Work Phone: [facility] Start: 03-20-2022 End: 03-20-[address] Gerardo García [facility] Start: 03-15-2022 End: 03-15-[address] Gerardo García [facility] Start: 02-16-2022 End: 02-16-[address] Gerardo García [facility] Start: 02-14-2022 End: 02-14-[address] Gerardo García Work Phone: [facility] Start: 01-26-2022 End: 01-26-[address] Gerardo García [facility] Start: 01-19-2022 End: 01-19-[address] Gerardo García [facility] 3[facility] Fl[facility] Start: 01-16-2022 End: 01-16-[address] Gerardo García Work Phone: [facility] Start: 12-30-2021 End: 12-30-2021 Admission to same day surgery center Dr. Gerardo García [facility] Start: 12-28-2021 End: 12-28-[address] Gerardo García Work Phone: [facility] Start: 12-08-2021 End: 12-08-[address] Gerardo García [facility] Start: 12-07-2021 End: 12-07-[address] Gerardo García Work Phone: [facility] Start: 12-06-2021 End: 12-06-[address] Gerardo García [facility] Start: 12-05-2021 End: 12-05-2021 Emergency department patient visit Dr. Gerardo García Work Phone: [facility]-Emergency Department Start: 11-29-2021 Non-patient / Non-visit Dr. Lenny García Work Phone: [facility] Start: 11-29-2021 End: 11-29-2021 Admission to same day surgery center Dr. Gerardo García [facility] Start: 11-10-[address] Gerardo García [facility] Start: 11-08-[address] Gerardo García [facility] 3[facility] Fl[facility] Start: 11-02-2021 End: 11-02-[address] Gerardo García Work Phone: [facility] Start: 11-01-[address] Gerardo García Work Phone: [facility]-Pulmonary Services/Neurology Start: 06-11-2018 End: 06-11-2018 Emergency department patient visit MARINA [place] Facility:[facility] Procedures Date Procedure Procedure Detail Performing Clinician [...] Work Phone: Start: 08-17-2023 Miscellaneous Culture D rJavy García Work Phone: Start: 08-17-2023 Dr. Gerardo guerra Work Phone: Start: 08-06-2023 Cystoscopy and retro grade pyelography Dr. Gerardo García Work Phone: Start: 08-06-2023 Fluoroscopic guidance D rJavy García Work Phone: Start: 08-02-2023 CT of abdomen and pe lvis without contrast Dr. Gerardo García Work Phone: Start: 08-02-2023 Bacteria identified in Blood by Culture Dr. Gerardo García Work Phone: Start: 08-02-2023 Urine culture [...] García Work Phone: Start: 06-08-2023 Fluoroscopic guidance D r. Gerardo Ricky Work Phone: Start: 05-28-[address] [...] Start: 01-22-2023 Influenza Types A,B Direct FA ([facility]) Dr. Gerardo García Work Phone: Start: 01-22-2023 Respiratory syncytia l virus antigen assay Dr. Gerardo García Work Phone: Start: 07-29-2022 Plain chest X-ray Dr. Zahra García Work Phone: Start: 07-28-2022 Introduction to urin [place] tract Dr. Gerardo García Work Phone: Start: 07-28-2022 Fluoroscopic guidance D malathi García Work Phone: Start: 05-12-2022 Plain chest X-ray Dr. Zahra García Work Phone: Start: 02-16-[address] Gerardo boyer Work Phone: Start: 01-26-2022 Plain chest X-ray Dr. Zahra García Work Phone: Start: 01-19-[address] Gerardo boyer Work Phone: Start: 01-19-2022 Diagnostic radiograp hy of abdomen, decubitus and erect Dr. Gerardo García Work Phone: Start: 12-30-2021 O.R. Fluoro for C-Arm D nikhil. Gerardo García Work Phone: Start: 12-08-2021 Bacteria identified in Urine by Culture Dr. Gerardo García Work Phone: Start: 12-06-2021 Urine culture [...] Work Phone: Influenza Types A,B Direct FA ([facility]) Dr. Gerardo García Work Phone: Influenza Types [...] Author Start: 01-20-2028 Diabetes Screening Diabetes Screening [facility] Start: 01-12-2028 Diabetes Screening Diabetes Screening [facility] Start: 12-06-2027 Diabetes Screening Diabetes Screening [facility] Start: 09-08-2027 Diabetes Screening Diabetes Screening [facility] Start: 06-19-2027 Diabetes Screening Diabetes Screening [facility] Start: 12-24-2026 Diabetes Screening Diabetes Screening [facility] Start: 11-24-2026 Diabetes Screening Diabetes Screening [facility] Start: 10-12-2026 Diabetes Screening Diabetes Screening [facility] Start: 01-19-2026 Creatinine measurement Serum Creatinine [facility] Start: 01-16-2026 Complete blood count Hemoglobin/Hematocrit [facility] Start: 12-28-2025 End: 12-28-2025 Patient encounter procedure 12/28/2025 8:45 AM EST Office Visit Urology [address], [place] [id number] Jni Antonio MD [address] [place] [address] 1 year follow up Urology Comment on above: 1 year follow up Start: 08-11-2025 End: 08-11-2025 Admission to same day surgery center 08/11/2025 10:00 AM EDT - 08/11/2025 11:20 AM EDT Surgery MR INTERVENTIONAL RADIOLOGY [address] [place] [address] Rocío Tapia MD, [address] [place] [address] Bilateral Neph tube exchange - [...] Encounter MR INTERVENTIONAL RADIOLOGY [address] [place] [address] Rocío Tapia MD, MD [address] [place] [address] Hydronephrosis, unspecified hydronephrosis type [N13.30] MR INTERVENTIONAL RADIOLOGY Comment on above: Hydronephrosis, unspecified hydronephros is type [N13.30] Start: 07-20-2025 Influenza vaccination Influenza Vaccine (#1) [facility] Start: 07-09-2025 End: 07-09-2025 Admission to same day surgery center 07/09/2025 1:32 PM EDT - 07/09/2025 2:02 PM EDT Surgery MR INTERVENTIONAL RADIOLOGY [address] [place] [address] [place], [address] [place] [address] neph tube check/exchange MR INTERVENTIONAL RADIOLOGY Comment [...] EDT Hospital Encounter MR INTERVENTIONAL RADIOLOGY [address] [facility] [place] [address] [place] [address] [address] [place] [address] Hydronephrosis, unspecified hydronephrosis type [N13.30] MR INTERVENTIONAL RADIOLOGY Comment on above: Hydronephrosis, unspecified hydronephros is type [N13.30] Start: 07-06-2025 Urine culture Urine Culture [facility] Start: 07-06-2025 [facility] Start: 03-30-2025 End: 03-30-2025 Patient encounter procedure 03/30/2025 9:45 AM EDT Office Visit Urology [address] [place], [place] [id number] Jin Antonio MD [address] [place], [place] [id number] f/u 2 months Urology Comment on above: f/u 2 months Start: 03-02-2025 End: 03-02-2025 Patient encounter procedure 03/02/2025 11:00 AM EDT Office Visit Urology [address] [place], [place] [id number] Jin Antonio MD [address] [place], [place] [id number] 6 month f/u Urology Comment on above: [...] Encounter MR INTERVENTIONAL RADIOLOGY [address] [place] [address] [place] [address] [facility] , [address] [address] Hydronephrosis, unspecified hydronephrosis type [N13.30] MR INTERVENTIONAL RADIOLOGY Comment on above: Hydronephrosis, unspecified hydronephros is type [N13.30] Start: 01-27-2025 End: 02-26-2026 XR Abdomen Supine and Upright [facility] Work Phone: Comment on above: Expected: 01/27/2025, Expires: Start: 01-27-2025 End: 01-27-2025 Patient encounter procedure 01/27/2025 8:40 AM EDT Office Visit Urology [address] [place] [address] Corina Ruffin, [employer] ATTENDANT [address] [place] [address] f/u per ML Urology Comment on above: f/u per ML Start: 01-26-2025 End: 01-26-2025 ambulatory 01/26/2025 3:15 PM EDT Infusion Center Infusion Center [address] [place] [address] [facility] Comment on above: [facility] Start: 01-14-2025 Guidance for exchange of nephrostomy tube of Kidney IR NEPH TUBE CHANGE Radiology Routine Hydronephrosis, unspecified hydronephrosis type [N13.30] Expected: 01/14/2025 (Approximate) [facility] Comment on above: Expected: 01/14/2025 (Approximate) Start: 01-12-2025 End: 01-12-2025 Admission to same day surgery center 01/12/2025 8:00 AM EST - 01/12/2025 9:00 AM EST Surgery MR INTERVENTIONAL RADIOLOGY [address] [place] [address] Rocío Tapia MD, MD [address] [place] [address] PERC EXCHANGE NEPHROSTOMY CATH, INCLUDING [...] Encounter MR INTERVENTIONAL RADIOLOGY [address] [place] [address] Rocío Tapia MD, MD [address] [place] [address] Hydronephrosis, unspecified hydronephrosis type [N13.30] MR INTERVENTIONAL RADIOLOGY Comment on above: Hydronephrosis, unspecified hydronephros is type [N13.30] Start: 01-03-2025 BP Controlled (<130/80) BP Controlled (<130/80) [facility] Start: 11-19-2024 Advance Directive Discussion Advance Directive Discussion [facility] Start: 11-19-2024 Medicare Advantage Annual Wellness Visit Medicare Advantage Annual Wellness Visit [facility] Start: 11-17-2024 End: 11-17-2024 Admission to same day surgery center 11/17/2024 8:00 AM EST - 11/17/2024 9:00 AM EST Surgery MR INTERVENTIONAL RADIOLOGY [address] [place] [address] [place] [address] [address] PERC EXCHANGE NEPHROSTOMY CATH, INCLUDING [...] EST Hospital Encounter MR [place] [address] [place] [address] [address] Bilateral hydronephrosis [N13.30] MR INTERVENTIONAL RADIOLOGY Comment on above: Bilateral hydronephrosis [N13.30] Start: 09-29-2024 End: 09-29-2024 Admission to same day surgery center 09/29/2024 10:00 AM EST - 09/29/2024 11:00 AM EST Surgery MR [place] [address] [place] [address] [place] [address] PERC EXCHANGE NEPHROSTOMY CATH, INCLUDING DIAGNOSTIC NEPHROSTOGRAM/URETEROG [...] Hospital Encounter MR INTERVENTIONAL RADIOLOGY [address] [place] [address] [place] [address] [address] [place] [address] Other hydronephrosis [N13.39] MR INTERVENTIONAL RADIOLOGY Comment on above: Other hydronephrosis [N13.39] Start: 09-02-2024 End: 09-02-2024 Admission to same day surgery center 09/02/2024 10:00 AM EDT - 09/02/2024 11:00 AM EDT Surgery MR INTERVENTIONAL RADIOLOGY [address] [place] [address] [place] [address] [place] [address] PERC EXCHANGE NEPHROSTOMY CATH, INCLUDING DIAGNOSTIC NEPHROSTOGRAM/URETEROG [...] Encounter MR INTERVENTIONAL RADIOLOGY [address] [place] [address] [place], [address] [address] [place] [id number] Other hydronephrosis [N13.39] MR INTERVENTIONAL RADIOLOGY Comment on above: Other hydronephrosis [N13.39] Start: 07-29-2024 Subsequent hospital visit by physician 07/29/2024 Hospital Encounter [facility] Surgery [address] [facility] [place] [address] Jin Antonio MD [address] [place] [address] Bilateral hydronephrosis [N13.30] [facility] Surgery Comment on above: Bilateral hydronephrosis [N13.30] Start: 07-20-2024 Covid-19 Vaccine ( season) Covid-19 Vaccine ( season) [facility] Start: 07-20-2024 Influenza vaccination [facility] Start: 07-08-2024 End: 07-08-2024 Admission to same day surgery center 07/08/2024 10:00 AM EDT - 07/08/2024 10:30 AM EDT Surgery MR INTERVENTIONAL RADIOLOGY [address] [place] [address] [place] [address] [id number] bilateral nephrostomy tube exchange MR INTERVENTIONAL RADIOLOGY Comment on above: bilateral nephrostomy tube exchange Start: 07-08-2024 Subsequent hospital visit by physician 07/08/2024 10:00 AM EDT Hospital Encounter MR INTERVENTIONAL RADIOLOGY [address] [place] [address] [place] [address] [address] Hydronephrosis, unspecified hydronephrosis type [N13.30] MR INTERVENTIONAL RADIOLOGY Comment on above: Hydronephrosis, unspecified hydronephros is type [N13.30] Start: 07-08-2024 End: 07-08-2024 Exchange nephrostomy catheter prq w/img gid rs&i MR IR Start: 07-07-2024 End: 07-07-2024 Patient encounter procedure 07/07/2024 11:15 AM EDT Office Visit Urology [address] [place], [place] [id number] Jin Antonio MD [address] [place], [place] [id number] 4 month follow up - (Neph Tube [...] Surgery MR INTERVENTIONAL RADIOLOGY [address] [place] [address] [place] [address] [address] PERC EXCHANGE NEPHROSTOMY CATH, INCLUDING [...] Encounter MR INTERVENTIONAL RADIOLOGY [address] [place] [address] [place] [address] [facility] , [address] [address] Hydronephrosis, unspecified hydronephrosis type [N13.30] MR INTERVENTIONAL RADIOLOGY Comment on above: Hydronephrosis, unspecified hydronephros is type [N13.30] Start: 04-08-2024 End: 04-08-2024 Admission to same day surgery center 04/08/2024 8:00 AM EDT - 04/08/2024 8:45 AM EDT Surgery MR INTERVENTIONAL RADIOLOGY [address] [place] [address] Rocío Tapia MD, MD [address] [place] [address] PERC EXCHANGE NEPHROSTOMY CATH, INCLUDING [...] Encounter MR INTERVENTIONAL RADIOLOGY [address] [place] [address] Rocío Tapia MD, [address] [place] [address] Hydronephrosis, unspecified hydronephrosis type [N13.30] MR INTERVENTIONAL RADIOLOGY Comment on above: Hydronephrosis, unspecified hydronephros is type [N13.30] Start: 03-18-2024 End: 03-18-2024 Plde nephrostomy cath prq new access rs&i PERC PLACEMENT NEPHROSTOMY CATH,INCLUDING DIAGNOSTIC NEPHROSTOGRAM/URETEROG CORRINA WHEN PERFORMED,IMAGING GUIDANCE AND ALL ASSOCIATED RAD S&I Hydronephrosis, unspecified hydronephrosis type 03/18/2024 2:53 PM EDT MR IR Start: 02-17-2024 Patient discharge [facility] Start: 02-14-2024 Application of intermittent pneumatic compression device [facility] Start: 02-14-2024 Assessment of risk of venous thromboembolism [facility] Start: 02-14-2024 Insertion of catheter into peripheral vein [facility] Start: 02-14-2024 Measuring intake and output [facility] Start: 02-14-2024 Providing care according to standard [facility] Start: 02-14-2024 Provision of activity privileges [facility] Start: 02-14-2024 Referral to service [facility] Start: 02-14-2024 [facility] Start: 02-14-2024 Following clinical pathway protocol [facility] Start: 02-14-2024 Verification routine [facility] Start: 02-14-2024 Admission procedure [facility] Start: 02-14-2024 Hospital admission, emergency, from emergency room, medical nature [facility] Start: 02-14-2024 End: 02-14-2024 [facility] Start: 02-14-2024 End: 02-14-2024 Blood culture [facility] Start: 02-14-2024 Bacteria identified in Blood by Culture Blood Culture [facility] Start: 02-14-2024 Bacteria identified in Urine by Culture [facility] Start: 02-14-2024 Urine culture Urine Culture [facility] Start: 11-19-2023 Advance Directive Discussion Advance Directive Discussion [facility] Start: 11-19-2023 Behavioral Health Screening Behavioral Health Screening [facility] Start: 11-19-2023 Depression Assessment Depression Assessment [facility] Start: 11-17-2023 [facility] Start: 11-16-2023 [facility] Start: 11-13-2023 Patient discharge [facility] Start: 11-10-2023 Following clinical pathway protocol [facility] Start: 11-10-2023 Cardiac monitoring [facility] Start: 11-10-2023 Catheterization of vein [facility] Start: 11-10-2023 Notification of physician [facility] Start: 11-10-2023 Admission procedure [facility] Start: 11-10-2023 Hospital admission, emergency, from emergency room, medical nature [facility] Start: 11-10-2023 End: 11-10-2023 [facility] Start: 11-10-2023 End: 11-10-2023 Blood culture [facility] Start: 11-06-2023 [facility] Start: 11-06-2023 End: 11-06-2023 [facility] Start: 10-09-2023 [facility] Start: 10-09-2023 End: 10-09-2023 [facility] Start: 10-09-2023 End: 10-09-2023 Blood culture [facility] Start: 10-08-2023 Blood culture [facility] Start: 10-08-2023 End: 10-08-2023 [facility] Start: 10-08-2023 Bacteria identified in Blood by Culture Blood Culture [facility] Start: 10-08-2023 Urine culture [facility] Start: 09-29-2023 Blood chemistry [facility] Start: 09-28-2023 Blood chemistry [facility] Start: 09-27-2023 Blood chemistry [facility] Start: 09-26-2023 Blood chemistry [facility] Start: 09-25-2023 Blood chemistry [facility] Start: 09-24-2023 Blood chemistry [facility] Start: 09-23-2023 Blood chemistry [facility] Start: 09-22-2023 Patient discharge [facility] Start: 09-20-2023 Consultation [facility] Start: 09-20-2023 Inhalation therapy procedure [facility] Start: 09-19-2023 Blood culture [facility] Start: 09-19-2023 Application of intermittent pneumatic compression device [facility] Start: 09-19-2023 Following clinical pathway protocol [facility] Start: 09-19-2023 Assessment of risk of venous thromboembolism [facility] Start: 09-19-2023 Consultation [facility] Start: 09-19-2023 Insertion of catheter into peripheral vein [facility] Start: 09-19-2023 Measuring intake and output [facility] Start: 09-19-2023 Notification of physician [facility] Start: 09-19-2023 Providing care according to standard [facility] Start: 09-19-2023 Provision of activity privileges [facility] Start: 09-19-2023 Vital signs measurements [facility] Start: 09-19-2023 [facility] Start: 09-19-2023 Bacteria identified in Blood by Culture Blood Culture [facility] Start: 09-19-2023 Bacteria identified in Urine by Culture Urine Culture [facility] Start: 09-19-2023 Verification routine [facility] Start: 09-19-2023 Admission procedure [facility] Start: 09-19-2023 Hospital admission, emergency, from emergency room, medical nature [facility] Start: 09-19-2023 [facility] Start: 09-19-2023 Enteric precautions [facility] Start: 09-19-2023 Patient referral to dietitian [facility] Start: 08-07-2023 Referral to service [facility] Start: 08-07-2023 Patient discharge [facility] Start: 08-07-2023 [facility] Start: 08-06-2023 Referral to service [facility] Start: 08-05-2023 Consultation [facility] Start: 08-02-2023 Consultation [facility] Start: 08-02-2023 Following clinical pathway protocol [facility] Start: 08-02-2023 Assessment of risk of venous thromboembolism [facility] Start: 08-02-2023 Inhalation therapy procedure [facility] Start: 08-02-2023 Insertion of catheter into peripheral vein [facility] Start: 08-02-2023 Measuring intake and output [facility] Start: 08-02-2023 Providing care according to standard [facility] Start: 08-02-2023 Provision of activity privileges [facility] Start: 08-02-2023 [facility] Start: 08-02-2023 Admission procedure [facility] Start: 07-20-2023 Covid-19 Vaccine () Covid-19 Vaccine () [facility] Start: 07-20-2023 Influenza vaccination Influenza Vaccine (#1) [facility] Start: 06-08-2023 Anes transurethral w/urethrocystoscopy nos ANESTH BLADDER SURGERY [facility] Start: 06-08-2023 Cysto w/insert ureteral stent CYSTOSCOPY AND TREATMENT [facility] Start: 06-08-2023 Ambulation without limitation [facility] Start: 06-08-2023 Medication education [facility] Start: 06-08-2023 Patient discharge [facility] Start: 06-08-2023 Taking patient vital signs [facility] Start: 06-08-2023 [facility] Start: 06-06-2023 Iv infusion therapy/prophylaxis /dx 1st to 1 [facility] Start: 05-28-2023 Urine culture Urine Culture [facility] Start: 05-28-2023 [facility] Start: 05-22-2023 Iv infusion therapy/prophylaxis /dx 1st to 1 hr [facility] Start: 05-22-2023 Following clinical pathway protocol [facility] Start: 05-19-2023 Following clinical pathway protocol [facility] Start: 05-16-2023 Iv infusion therapy/prophylaxis /dx 1st to 1 hr THER/PROPH/DIAG IV INF INIT [facility] Start: 01-24-2023 Anes transurethral w/urethrocystoscopy nos ANESTH BLADDER SURGERY [facility] Start: 01-24-2023 Cysto w/insert ureteral stent CYSTOSCOPY AND TREATMENT [facility] Start: 01-24-2023 Ambulation without limitation [facility] Start: 01-24-2023 Medication education [facility] Start: 01-24-2023 Patient discharge [facility] Start: 01-24-2023 Taking patient vital signs [facility] Start: 01-24-2023 [facility] Start: 11-19-2022 Advance Directive Discussion Advance Directive Discussion [facility] Start: 11-19-2022 Depression Assessment Depression Assessment [facility] Start: 09-18-2022 [facility] Work Phone: Start: 08-01-2022 Patient discharge [facility] Work Phone: Start: 07-31-2022 [facility] Work Phone: Start: 07-30-2022 Following clinical pathway protocol [facility] Work Phone: Start: 07-30-2022 Consultation [facility] Work Phone: Start: 07-30-2022 Following clinical pathway protocol [facility] Work Phone: Start: 07-30-2022 Referral to service [facility] Work Phone: Start: 07-30-2022 Referral to occupational therapist [facility] Work Phone: Start: 07-29-2022 Assessment of risk of venous thromboembolism [facility] Work Phone: Start: 07-29-2022 Consultation [facility] Work Phone: Start: 07-29-2022 Documentation procedure [facility] Work Phone: Start: 07-29-2022 Incentive spirometry [facility] Work Phone: Start: 07-29-2022 Inhalation therapy procedure [facility] Work Phone: Start: 07-29-2022 Insertion of catheter into peripheral vein [facility] Work Phone: Start: 07-29-2022 Introduction of urinary catheter [facility] Work Phone: Start: 07-29-2022 Measuring intake and output [facility] Work Phone: Start: 07-29-2022 Oxygen therapy [facility] Work Phone: Start: 07-29-2022 Providing care according to standard [facility] Work Phone: Start: 07-29-2022 Provision of activity privileges [facility] Work Phone: Start: 07-29-2022 [facility] Work Phone: Start: 07-29-2022 Admission procedure [facility] Work Phone: Start: 07-29-2022 End: 07-29-2022 Blood culture [facility] Work Phone: Start: 07-28-2022 Anes transurethral w/urethrocystoscopy nos ANESTH BLADDER SURGERY [facility] Work Phone: Start: 07-28-2022 Cysto w/insert ureteral stent CYSTOSCOPY AND TREATMENT [facility] Work Phone: Start: 07-28-2022 Ambulation without limitation [facility] Work Phone: Start: 07-28-2022 Medication education [facility] Work Phone: Start: 07-28-2022 Patient discharge [facility] Work Phone: Start: 07-28-2022 Taking patient vital signs [facility] Work Phone: Start: 07-28-2022 [facility] Work Phone: Start: 03-20-2022 Urine culture Urine Culture [facility] Work Phone: Start: 12-30-2021 Anes transurethral w/urethrocystoscopy nos ANESTH BLADDER SURGERY [facility] Work Phone: Start: 12-30-2021 Cysto w/insert ureteral stent CYSTOSCOPY AND TREATMENT [facility] Work Phone: Start: 11-29-2021 Anesthesia vascular shunt/shunt revision ANESTH VASCULAR SHUNT SURG [facility] Work Phone: Start: 12-29-2020 Pneumococcal Vaccine: 50+ (2 of 2 - PCV) Pneumococcal Vaccine: 50+ (2 of 2 - PCV) [facility] Start: 12-29-2020 Pneumococcal Vaccine: 65+ (2 - PCV) Pneumococcal Vaccine: 65+ (2 - PCV) [facility] Start: 12-29-2020 Pneumococcal Vaccine: 65+ (2 of 2 - PCV) Pneumococcal Vaccine: 65+ (2 of 2 - PCV) [facility] Start: 2017 Bone Density Screening Bone Density Screening [facility] Start: 2017 Screening for osteoporosis Bone Density Screening [facility] Start: 2012 RSV Vaccine (1 - 1-dose 60+ series) RSV Vaccine (1 - 1-dose 60+ series) [facility] Start: 2012 RSV Vaccine (1 - Risk 60-74 years 1-dose series) RSV Vaccine (1 - Risk 60-74 years 1-dose series) [facility] Start: 2002 Shingrix Vaccine (1 of 2) Shingrix Vaccine (1 of 2) [facility] Start: 1997 Cologuard (FIT-DNA) Cologuard (FIT-DNA) [facility] Start: 1997 Colonoscopy Colonoscopy [facility] Start: 1997 Colorectal Cancer Screening Colorectal Cancer Screening [facility] Start: [address] Colonography [facility] Start: 1997 Fecal Occult Blood Fecal Occult Blood [facility] Start: 1997 Lipid 1996 panel - Serum or Plasma Lipid Screening [facility] Start: 1997 Lipid panel Lipid Screening [facility] Start: 1997 Screening for malignant neoplasm of colon [facility] Start: 1997 Sigmoidoscopy Sigmoidoscopy [facility] Start: 1992 Mammography Mammogram Screening [facility] Start: 1992 Screening for malignant neoplasm of breast Mammogram Screening [facility] Start: 1971 Urine microalbumin profile DTaP,Tdap,Td Vaccine (1 - Tdap) [facility] Start: 1970 Annual PCP Team Chronic Disease Visit Annual PCP Team Chronic Disease Visit [facility] Start: 1970 Anxiety Screening Anxiety Screening [facility] Start: 1970 BP Controlled (<130/80) BP Controlled (<130/80) [facility] Start: 1970 Depression Screening Depression Screening [facility] Start: 1970 Hepatitis C Screening Hepatitis C Screening [facility] Start: 1970 Hepatitis C screening Hepatitis C Screening [facility] Start: 1970 Spirometry Spirometry [facility] Bacteria identified in Blood by Culture Blood Culture [facility] Work Phone: Clostridioides diffi cile DNA [Presence] in Unspecified specimen by BOBBI with probe detection [facility] Cysto w/insert urete ral stent CYSTOSCOPY, INSERTION STENT URETERAL J Bilateral hydronephrosis MR OR Gastrointestinal pathogens panel - Stool by BOBBI with probe detection [facility] Guidance for dilatio n of existing nephrostomy tract and placement of nephrostomy tube at new site of Kidney IR NEPHROSTOMY CONSULT Radiology Routine Other hydronephrosis Ordered: 06/15/2024 [facility] Work Phone: Comment on above: Ordered: 06/15/2024 Guidance for exchang e of nephrostomy tube of Kidney IR NEPH TUBE CHANGE Radiology Routine Bilateral hydronephrosis Ordered: 01/22/2024 [facility] Work Phone: Comment on above: Ordered: 01/22/2024 Guidance for exchang e of nephrostomy tube of Kidney IR NEPH TUBE CHANGE Radiology Timed Bilateral hydronephrosis Ordered: 03/03/2024 [facility] Work Phone: Comment on above: Ordered: 03/03/2024 Guidance for exchang e of nephrostomy tube of Kidney IR NEPH TUBE CHANGE Radiology Routine Hydronephrosis, unspecified hydronephrosis type Ordered: 07/08/2025 [facility] Work Phone: Comment on above: Ordered: 07/08/2025 Guidance for percuta neous placement of nephrostomy tube of Kidney IR NEPHROSTOMY TUBE PLACE Radiology Routine Bilateral hydronephrosis Ordered: 02/09/2024 [facility] Work Phone: Comment on above: Ordered: 02/09/2024 Guidance for percuta neous placement of nephrostomy tube of Kidney IR NEPHROSTOMY TUBE PLACE Radiology STAT Hydronephrosis of left kidney Ordered: 03/18/2024 [facility] Work Phone: Comment on above: Ordered: 03/18/2024 IR NEPHROSTOGRAM IR NEPHROSTOGRA M Radiology Routine Bilateral hydronephrosis Ordered: 12/24/2023 [facility] Work Phone: Comment on above: Ordered: 12/24/2023 Lactoferrin [Presenc e] in Stool by Immunoassay [facility] Ova and parasites identified in Unspecified specimen by Light microscopy [facility] Patient Education [facility] Work Phone: Patient referral [facility] Work Phone: UA DIP, URINE (POC) UA DIP, URIN E (POC) Lab Routine Hydronephrosis, unspecified hydronephrosis type [N13.30] Ordered: 12/22/2024 [facility] Work Phone: Comment on above: Ordered: 12/22/2024 Urine culture Urine Culture [facility] Work Phone: [facility] MR OR [facility] Immunizations Immunization Date Immunization Notes Care Provider [facility] 11-08-2021 Covid (Moderna) Dr. Gerardo García Work Phone: [facility] 08-09-2021 influenza, injectabl e, quadrivalent, preservative free Dr. Gerardo García Work Phone: [facility] 08-09-2021 influenza, seasonal, injectable Dr. Gerardo García Work Phone: [facility] 08-09-2021 influenza virus vacc ine, unspecified formulation Andres Wyatt MD Work Phone: [facility] 05-11-2021 Covid (Guille & Guille) Dr. Gerardo García Work Phone: [facility] 08-10-2020 influenza, injectabl e, quadrivalent, preservative free Dr. Gerardo García Work Phone: [facility] 08-10-2020 influenza, seasonal, injectable Dr. Gerardo García Work Phone: [facility] 08-04-[address] Gerardo García Work Phone: [facility] 12-29-2019 pneumococcal polysaccharide vaccine, [address] Gerardo García Work Phone: [facility] 06-30-2019 pneumococcal polysaccharide vaccine, [address] Gerardo García Work Phone: [facility] 11-23-2017 influenza, injectabl e, quadrivalent, preservative free Dr. Gerardo García Work Phone: [facility] 11-23-2017 influenza, seasonal, injectable Dr. Gerardo García Work Phone: [facility] Payers Date Payer Category Payer Self-pay [id number] 2019 Medicare HUMANA MEDICARE HUMANA GOLD PLUS [id number] 2019-Present [phone] [place] [id number] [facility] [id number] 2019 Medicare (Managed Care) HUMANA G OLD PLUS [id number] 2019 Medicare [id number] 1950 Unknown [id number] Medicaid [id number] Medicare [id number] Medicare [id number] Unknown [id number] 462 Unknown [id number] 462 Unknown [id number]. 462 Unknown [id number]. 462 Unknown [id number]. 462 Unknown [id number]. 462 Unknown [id number]. 462 Unknown [id number]. 462 Unknown [id number]. 462 Unknown [id number]. 462 Unknown [id number]. 462 Unknown [id number] 462 Unknown [id number] 462 Social History Date Type Detail Facility Start: 12-05-2021 End: 02-14-2024 Tobacco smoking status [facility] Unknown if ever smoked [facility] Start: 09-23-2020 None [facility] Start: 12-19-2020 Spouse/ Signif icant Other [facility] Start: 02-21-2021 Non-smoker [facility] Start: 1950 Sex Assigned At Female [facility] Start: 01-04-2015 End: 09-06-2024 Tobacco smoking status NHIS Ex-smoker [facility] Start: 11-19-2007 End: 01-04-2008 History of tobacco use Current smoker [facility] Start: 11-19-2007 End: 01-04-2008 History of tobacco use Cigarette Smoker [facility] Start: 01-04-2015 End: 08-11-2024 Tobacco use and exposure Smokeless tobacco non-user [facility] Start: 10-11-2023 End: 11-26-2023 History of Social function [facility] Start: 10-11-2023 End: 11-26-2023 Tobacco use panel [facility] How hard is it for y ou to pay for the very basics like food, housing, medical care, and heating Not very hard [facility] (I/We) worried juany er (my/our) food would run out before (I/we) got money to buy more. Never true [facility] Start: 10-20-2012 In the past 12 month s, has lack of transportation kept you from medical appointments or from getting medications? No [facility] In the past 12 month s, was there a time when you were not able to pay the mortgage or rent on time? No [facility] Start: 1950 Sex Assigned At Not on file C [facility] Start: 02-11-2024 End: 06-15-2025 Alcohol intake Lifetime non-drinker (finding) [facility] Start: 02-10-2025 Sex Female (finding) [facility] NEGATED: Highlighted row [facility] NEGATED: Highlighted rowStart: NINF History of tobacco use Passive smoker [facility] Medical Equipment Procedure Code Equipment Code [...] FDA Start: 12-30-2021 Cystoscopic insertion of stent ([id number]) [id number] FDA Start: 07-28-2022 Cystoscopic insertion of [...] Curve Filiform Black Stainless Steel Vinyl - [id number] Start: 10-11-2023 FDA Start: 12-14-2018 FDA [...] Curve Filiform Black Stainless Steel Vinyl - [id number] Start: 10-11-2023 STENT,URETERAL PIGTAIL [id number] FDA Start: 12-14-2018 STENT,URETERAL PIGTAIL [id number] FDA Start: 12-14-2018 STENT,URETERAL PIGTAIL [id number] FDA Start: 01-14-2020 STENT,URETERAL PIGTAIL [id number] FDA Start: 01-14-2020 STENT,URETERAL PIGTAIL [id number] FDA Start: 05-28-2020 STENT,URETERAL PIGTAIL [id number] FDA Start: 05-28-2020 Set 6fr .038in 2 Pigtail Curve Filiform Black Stainless Steel Vinyl - [id number] Start: 02-07-2024 Set 6fr .038in 2 Pigtail Curve Filiform Black Stainless Steel Vinyl - [id number] Start: 02-07-2024 STENT,URETERAL PIGTAIL [id number] FDA [...] No 01/19/2025 1:25 PM Soumya Coppola RN [facility] 01-19-2025 Are you blind, or do you have serious difficulty seeing, even when wearing glasses No 01/19/2025 1:25 PM Soumya Coppola RN [facility] 01-19-2025 Do you have serious difficulty walking or climbing stairs No 01/19/2025 1:25 PM Soumya Coppola RN [facility] 01-19-2025 Do you have difficul ty dressing or bathing No 01/19/2025 1:25 PM Soumya Coppola RN [facility] 01-19-2025 Because of a physica l, mental, or emotional condition, do you have difficulty doing errands alone such as visiting a physician's office or shopping No 01/19/2025 1:25 PM Soumya Coppola RN No [facility] 12-06-2024 Are you deaf, or do you have serious difficulty hearing No 12/06/2024 3:34 PM Joyce Quach RN No [facility] 12-06-2024 Are you blind, or do you have serious difficulty seeing, even when wearing glasses No 12/06/2024 3:34 PM Joyce Quach RN No [facility] 12-06-2024 Do you have serious difficulty walking or climbing stairs No 12/06/2024 3:34 PM Joyce Quach RN No [facility] 12-06-2024 Do you have difficul ty dressing or bathing No 12/06/2024 3:34 PM Joyce Quach RN No [facility] 12-06-2024 Because of a physica l, mental, or emotional condition, do you have difficulty doing errands alone such as visiting a physician's office or shopping No 12/06/2024 3:34 PM Joyce Quach RN No [facility] 02-17-2024 Functional status Up ad javier;Bath room Privilege [facility] Work Phone: 11-13-2023 Functional status Standby Assist [facility] Work Phone: 11-12-2023 Functional status Bathroom Privilege [facility] Work Phone: 09-22-2023 Functional status Independent [facility] Work Phone: 09-21-2023 Functional status Ambulates [facility] Work Phone: 08-07-2023 Functional status Ambulates;Up ad javier [facility] Work Phone: 08-06-2023 Functional status None [facility] Work Phone: 08-01-2022 Functional status Ambulates [facility] Work Phone: 12-30-2021 Functional status Ambulates [facility] Work Phone: Mental Status Date Assessment Result Facility 01-19-2025 Because of a physica l, mental, or emotional condition, do you have serious difficulty concentrating, remembering, or making decisions No 01/19/2025 1:25 PM Soumya Coppola RN No [facility] 12-06-2024 Because of a physica l, mental, or emotional condition, do you have serious difficulty concentrating, remembering, or making decisions No 12/06/2024 3:34 PM Joyce Quach RN No [facility] 02-17-2024 Cognitive function Voice/Name [facility] Work Phone: 11-16-2023 Cognitive function Level Of Cons ciousness Awake;Alert;Appropriate;Fol lows Commands [facility] Work Phone: 11-13-2023 Cognitive function Voice/Name [facility] Work Phone: 11-10-2023 Cognitive function Awake;Alert;A ppropriate;Fol lows Commands [facility] Work Phone: 10-09-2023 Cognitive function Awake;Alert;A ppropriate;Fol lows Commands [facility] Work Phone: 09-21-2023 Cognitive function Voice/Name [facility] Work Phone: 09-19-2023 Cognitive function Level Of Cons ciousness Awake;Alert;Appropriate;Fol lows Commands [facility] Work Phone: 08-07-2023 Cognitive function Voice/Name [facility] Work Phone: 06-08-2023 Cognitive function Level Of Cons ciousness Awake [facility] Work Phone: 06-07-2023 Cognitive function Voice/Name [facility] Work Phone: 06-06-2023 Cognitive function Voice/Name [facility] Work Phone: 06-05-2023 Cognitive function Voice/Name [facility] Work Phone: 05-21-2023 Cognitive function Voice/Name [facility] Work Phone: 05-18-2023 Cognitive function Voice/Name [facility] Work Phone: 05-17-2023 Cognitive function Voice/Name [facility] Work Phone: 05-16-2023 Cognitive function Voice/Name [facility] Work Phone: 01-24-2023 Cognitive function Voice/Name [facility] Work Phone: 08-01-2022 Cognitive function Voice/Name [facility] Work Phone: 07-28-2022 Cognitive function Voice/Name [facility] Work Phone: 07-28-2022 Cognitive function Patient Jordyn issa Person;Place;Time [facility] Work Phone: 12-30-2021 Cognitive function Voice/Name [facility] Work Phone: 11-29-2021 Cognitive function Voice/Name [facility] Work Phone: Clinical Notes 08-30-2015 to 07-08-2025 Telephone Encounter - Corina Felix APRN.[facility] - 07/08/2025 9:36 AM EDTTelephone Encounter - Corina Felix APRN.[facility] - 07/08/2025 9:36 AM EDT Note Date [...] currently on Cipro Thanks Corina Felix APRN.[place] [facility] 07-08-2025 Miscellaneous Notes Formattin g of this [...] patient. Rosio Archer documented in this encounter [facility] 07-08-2025 Telephone encount er Note Pt calling sts she feels terrible, L tube is out she is being treated for UTI and just doesn't feel good. Please advise patient. Rosio Archer [facility] 07-08-2025 Telephone encount er Note I called patient and discussed recommendation for IR exchange on L side if unable to get into IR today will have her go to ED. I called radiology and left VM to call back, if they do, please me know so I can talk to them Thanks Corina Felix APRN.CNP [facility] Work Phone: 07-08-2025 Miscellaneous Notes Formattin g [...] Corina Felix APRN.CNP documented in this encounter [facility] 03-03-2025 Evaluation note Diagnosis Onset Date Resolution AV fistula acute March 03 10:51am [facility] Work Phone: [phone]) 284-726703-11-2025 [facility]03-11-2025 History of Present illness Narrative* Corina Ruffin APRN.CNP - 01/27/2025 3:18 PM EDT KUB reviewed. Left PNT appears to be in correct positioning. Educated on s/s of malpositioned PNT and of when to go to the ER. Pt verbalized understanding. * Corina Ruffin APRN.CNP - 01/27/2025 8:49 AM EDT Images from the original note were not included. 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 FAXED for copy Renal failure [...] Dr. 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, no longer follows with paralegal secretary LX REMOVAL RENAL MASS NEPHROSTOMY TUBE ([place] [...] Anaphylaxis Prednisone Unknown Only allergic to Methylprednisone Lorivis-Lmk-Kjz Red* Anaphylaxis Medications Current Outpatient Medications Medication [...] tube with no hydronephrosis. 3. Colonic diverticulosis. 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 An electronic signature was used to authenticate this note. Please note that portions of this chart were dictated using [employer] electronic voice recognition software. It is possible that typos and/or omissions and/or substitutions of words and/or phrases may exist, which may alter the intended meaning of the dictating provider. Corina Ruffin APRN [facility] History of Present illness Narrative* Marlon Guzman [...] PATIENT PRESENTS WITH AN IMPLANTABLE OR ATTACHED EDGER MACHINE SETTER: No RADIOLOGY DEPARTMENT: General X-ray: Exam(s) Completed: [...] PATIENT PRESENTS WITH AN IMPLANTABLE OR ATTACHED EDGER MACHINE SETTER: No RADIOLOGY DEPARTMENT: General X-ray: Exam(s) Completed: Abdomen X-Ray: Abdomen PERIPHERAL IV DATA: Not applicable SIGNED BY: RT Bienvenido(R) January 27, 2025 9:43 AM documented [facility]2025 [facility] 01-27-2025 [facility]03-11-2025 [facility]03-10-2025 [facility]03-10-2025 History of Present illness Narrative* Renetta Stiles [...] when orders are placed. documented in this [facility]2025 [facility] 01-19-2025 [facility]03-02-2025 [facility]03-01-2025 [facility]02-28-2025 [facility]02-28-2025 [facility]02-27-2025 [facility]02-26-2025 NoteHNO ID: [id number] Author: LOUIE DELATORRE APRN.CNP Service: Hospital Medicine Author Type: Nurse Practitioner Type: Progress Notes Filed: 01/14/2025 13:00 Note Text: .[facility]02-26-2025 [facility]02-25-2025 [facility]02-25-2025 Telephone encounter Note* Telephone Encounter - Rosio Archer - 01/13/2025 3:30 PM EST Unable to hear PT message. Requested they call the office. Rosio Archer [facility]02-25-2025 Miscellaneous Notes* Telephone Encounter - GianniRosio - 01/13/2025 3:30 PM EST Unable to hear PT message. Requested they call the office. Rsoio Archer documented in [facility] encounterPrem[facility]02[facility]24-2025 [id number] (AGENT OF COVID-19) RNA: Not detected INFLUENZA A RNA: Not detected INFLUENZA B RNA: Not detected RESPIRATORY SYNCYTIAL VIRUS (RSV) RNA: Not detectedEastern [facility] Psychiatric CenterComment on above:Performed By: #### [id number] ####[facility] LABORATORYCLIA [id number] [address] STATES OF [id number] [facility]02-03-2025 History of Present illness Narrative* Jin Antonio [...] falsely depressed results. No results found for: "PSA", "PSASC" No results found for: "UGLUCPOC", "UBILIPOC", "UKETONPOC", "USGPOC", "UHBPOC", "UPHPOC", "UPROPOC","UUROPOC", "UNITPOC", "UWBCPOC", "UCOLPOC", "UCLARPOC"] ALLERGIES Allergen Reactions Methylprednisolone Other: See Comments Bactrim [Sulfametho* Shortness of Breath Pravastatin Anaphylaxis Prednisone Unknown Only allergic to Methylprednisone Bbtugji-Vbx-Koo Red* Anaphylaxis MEDICATIONS: sodium chloride 0.9 %, flush, (BD POSIFLUSH) syringe 10 mL once daily. Urinary Bag (BARD URINARY DRAINAGE SYSTEM) misc 2 Bags as needed. levothyroxine (SYNTHROID) 25 mcg tablet Take 1 tablet by mouth daily before breakfast. IPRATROPIUM BROMIDE NASAL Use 1 [place] in the nose every morning. pantoprazole DR (PROTONIX) 40 mg tablet Take 40 mg by mouth every morning. potassium chloride ER (KLOR-CON) 20 mEq tablet Take 20 mEq by mouth every morning. amLODIPine (NORVASC) 2.5 mg tablet Take 2.5 mg by mouth every morning. 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 FAXED for copy Renal failure [...] Dr. 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 I informed pt that she could contact her insurance and ask if they would cover these supplies. Todd asked if she could order nephrostomy supplies on [employer]. While on the phone with the pt, I searched [email or web address] website and informed her that she could order supplies at that site. ELAINE Vizcarra [facility]12-20-2024 Miscellaneous Notes* Telephone Encounter - Kiya Johnson OCCA - 11/07/2024 2:07 PM EST I contacted IR and they do not supply replacement nephrostomy bags. I informed pt that she could contact her insurance and ask if they would cover these supplies. Todd asked if she could order nephrostomy supplies on [employer]. While on the phone with the pt, I searched [employer] website and informed her that she could [...] get new bags. She has already called [facility] and they do not carry them. ELAINE Vizcarra documented in this encounterPremier Health Miami Valley Hospital12-20-2024 Telephone encounter Note * Telephone Encounter - Kiya Johnson OCCA - 11/07/2024 11:47 AM EST Attempted to contact interventional radiology, no answer and was unable to leave a VM. Will try again later. ELAINE Vizcarra [facility]12-20-2024 Telephone encounter Note* Telephone Encounter - Kiya [...] they do not carry them. ELAINE Vizcarra [facility]11-11-2024 Surgery Surgical operation note* Brief Op Note - Ghulam Rivera DO - 09/29/2024 11:17 AM EST BRIEF OPERATIVE / PROCEDURE NOTE LOG ID: [id number] SURGERY/PROCEDURE DATE: 09/29/2024 INCISION/PROCEDURE START TIME: 11:03 AM INCISION CLOSE/PROCEDURE END TIME: SURGEON(S)/PROCEDURALIST(S) AND BALLISTIC TECHNICIAN(S): Surgeons and Role: * Ghulam Rivera, DO - Primary No Additional Staff SURGERY/PROCEDURE(S): [...] DATE: September 29, 2024 TIME: 11:17 AM [facility] Work Phone: [phone]) 801-566611-11-2024 Surgical operation note* Brief Op Note - Ghulam Rivera DO - 09/29/2024 11:17 AM EST BRIEF OPERATIVE / PROCEDURE NOTE LOG ID: [id number] SURGERY/PROCEDURE DATE: 09/29/2024 INCISION/PROCEDURE START TIME: 11:03 AM INCISION CLOSE/PROCEDURE END TIME: SURGEON(S)/PROCEDURALIST(S) AND BALLISTIC TECHNICIAN(S): Surgeons and Role: * Ghulam Rivera DO [...] 2024 TIME: 11:17 AM documented in this encounterPremier Health Miami Valley Hospital11-11-2024 Nurse Note* Mayra Ferguson RN - 09/29/2024 11:12 AM EST Procedure complete. Geronimo nephrostomy tube dressings new, D/I:Stafix dressing applied to both w/tegaderm coverings. Pt placed in a wheelchair and taken to outpt area via RN [facility]11-11-2024 Nurse Note* Mayra Ferguson RN - 09/29/2024 11:12 AM EST Procedure complete. Geronimo nephrostomy tube dressings new, D/I:Stafix dressing applied to both w/tegaderm coverings. Pt placed in a wheelchair and taken to outpt area via RN documented in this encounterPremier Health Miami Valley Hospital10-20-2024 [facility] 09-01-2024 Telephone encounter Note* Telephone Encounter - Lesly Banuelos RN - 09/01/2024 8:47 AM EDT Yes, on 09/29. Lesly Banuelos RN [facility]10-14-2024 Miscellaneous Notes* Telephone Encounter - Lesly Banuelos RN - 09/01/2024 8:47 AM EDT Yes, on 09/29. Lesly Banuelos RN * Telephone Encounter - Sulema Poon APRN.CAROLYNE - 08/29/2024 12:07 PM EDT The following approved medication requests have been transmitted electronically. Requested Prescriptions Signed Prescriptions Disp Refills sodium chloride 0.9 %, flush, (BD POSIFLUSH) syringe 300 mL 11 Si mL once daily. Authorizing Provider: SULEMA POON APRN.ICE RINK ATTENDANT * Telephone Encounter - Lesly Banuelos RN [...] call to me if they call back. Lesly Rasmussen RN documented in this encounterPremier Health Miami [facility] Hospital10-11-2024 Telephone encounter Note * Telephone Encounter - Sulema Poon APRN.CNP - 08/29/2024 12:07 PM EDT The following approved medication requests have been transmitted electronically. Requested Prescriptions Signed Prescriptions Disp Refills sodium chloride 0.9 %, flush, (BD POSIFLUSH) syringe 300 mL 11 Si mL once daily. Authorizing Provider: SULEMA POON APRN.CNP [facility]10-11-2024 Telephone encounter Note* Telephone Encounter - Lesly Banuelos RN - 08/29/2024 11:59 AM EDT Will send to Adele Poon to address. Lesly Banuelos RN [facility]10-11-2024 Telephone encounter Note* Telephone Encounter - Lesly Banuelos RN - 08/29/2024 11:56 AM EDT Left voice mail on IR's voicemail to see who provides the prescription for normal saline syringes for the patient's nephrostomy tubes. She states she is going to run out of them before she is able tofill them again. Please send call to me if they call back. Thanks, Lesly Banuelos, RN [facility]10-11-2024 History of Present illness Narrative* Jin Antonio [...] falsely depressed results. No results found for: "PSA", "PSASC" No results found for: "UGLUCPOC", "UBILIPOC", "UKETONPOC", "USGPOC", "UHBPOC", "UPHPOC", "UPROPOC","UUROPOC", "UNITPOC", "UWBCPOC", "UCOLPOC", "UCLARPOC"] ALLERGIES Allergen Reactions Methylprednisolone Other: See Comments Bactrim [Sulfametho* Shortness of Breath Influenza Virus Vac* Unknown Pravastatin Intolerance Prednisone Unknown Zxrhpms-Exe-Sld Red* Anaphylaxis MEDICATIONS: sodium chloride 0.9 %, flush, (BD POSIFLUSH) syringe 10 mL once daily. Urinary Bag (BARD URINARY DRAINAGE SYSTEM) misc 2 Bags as needed. levothyroxine (SYNTHROID) 25 mcg tablet Take 1 tablet by mouth daily before breakfast. IPRATROPIUM BROMIDE NASAL Use 1 [place] in the nose every morning. pantoprazole DR (PROTONIX) 40 mg tablet Take 40 mg by mouth every morning. potassium chloride ER (KLOR-CON) 20 mEq tablet Take 20 mEq by mouth every morning. amLODIPine (NORVASC) 2.5 mg tablet Take 2.5 mg by mouth every morning. 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 FAXED for copy Renal failure [...] Dr. 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 Jin Antonio MD documented in this encounterPremier Health Miami [facility] Hospital08-20-2024 Telephone encounter Note * Telephone Encounter - Berna aMtta - 07/08/2024 2:51 PM EDT Called about her surgery and she is on 08/13. Berna Matta [facility]08-20-2024 Miscellaneous Notes* Telephone Encounter - Berna Turpin - 07/08/2024 2:51 PM EDT Called about her surgery and she is on 08/13. Berna Matta documented in this encounterPremier Health Miami Valley Hospital08-19-2024 History of Present illness Narrative* Jin Antonio [...] falsely depressed results. No results found for: "PSA", "PSASC" No results found for: "UGLUCPOC", "UBILIPOC", "UKETONPOC", "USGPOC", "UHBPOC", "UPHPOC", "UPROPOC","UUROPOC", "UNITPOC", "UWBCPOC", "UCOLPOC", "UCLARPOC"] ALLERGIES Allergen Reactions Methylprednisolone Other: See Comments Bactrim [Sulfametho* Shortness of Breath Influenza Virus Vac* Unknown Pravastatin Intolerance Prednisone Unknown Zsmaogk-Hqk-Wte Red* Anaphylaxis MEDICATIONS: sodium chloride 0.9 %, flush, (BD POSIFLUSH) syringe 10 mL once daily. Urinary Bag (BARD URINARY DRAINAGE SYSTEM) misc 2 Bags as needed. levothyroxine (SYNTHROID) 25 mcg tablet Take 1 tablet by mouth every afternoon. IPRATROPIUM BROMIDE NASAL Use 1 [place] in the nose every morning. pantoprazole DR (PROTONIX) 40 mg tablet Take 40 mg by mouth every morning. potassium chloride ER (KLOR-CON) 20 mEq tablet Take 20 mEq by mouth every morning. amLODIPine (NORVASC) 2.5 mg tablet Take 2.5 mg by mouth every morning. ALBUTEROL SULFATE (VENTOLIN INHALATION) Inhale 1 [place] as instructed every 4 hours as needed [...] Comment: NO DIALYSIS FOR [address] MILLER [...] N39.0 Jin Antonio MD documented in this encounterPremier Health Miami Valley Hospital08-16-2024 Telephone encounter Note * Telephone Encounter - Lesly Banuelos RN - 07/04/2024 9:09 AM EDT Returned patient's VM. She states her left nephrostomy tube is not draining into the bag and is leaking around the tube. She states it would not flush last night or this morning. Advised patient to go to the ER for further evaluation. She voiced understanding. Lesly Banuelos RN [facility]08-16-2024 Miscellaneous Notes* Telephone Encounter - Lesly Banuelos [...] understanding. Lesly Banuelos RN documented in this encounterPremier Health Miami Valley Hospital07-29-2024 Surgery Surgical operation note* Brief Op Note - Geraldo Campbell MD, MD - 06/16/2024 11:25 AM EDT INTERVENTIONAL RADIOLOGY POST PROCEDURE NOTE DATE: 06/16/24 NAME: Todd Delong LOG ID: [id number] Pre-Procedure Diagnosis: Hydronephrosis. Existing left nephrostomy partially pulled out Development Administrator: Surgeon(s) and Role: * Geraldo Campbell MD, [...] Please see Radiology report for complete information [facility] Work Phone: 1(646) 747-560707-29-2024 Surgical operation note* Brief Op Note - Geraldo Campbell MD, - 06/16/2024 11:25 AM EDT INTERVENTIONAL RADIOLOGY POST PROCEDURE NOTE DATE: 06/16/24 NAME: Todd Delong LOG ID: [id number] Pre-Procedure Diagnosis: Hydronephrosis. Existing left nephrostomy partially pulled out Development Administrator: Surgeon(s) and Role: * Geraldo Campbell MD, [...] report for complete information documented in this encounterPremier Health Miami Valley Hospital07-29-2024 Telephone encounter Note * Telephone Encounter - HaFrancoisBerna Holt - 06/16/2024 8:30 AM EDT Called and made her aware and she is aware. She took nasal spray and metronidazole. IR nurses state she can take medications. Called her and she is aware. Berna Matta [facility]07-29-2024 Miscellaneous Notes* Telephone Encounter - Berna Turpin [...] nurse 06/16 Berna Matta documented in this encounterPremier Health Miami Valley Hospital07-29-2024 Telephone encounter Note * Telephone Encounter - Berna Matta - 06/16/2024 8:16 AM EDT Messaged IR and they can see her today by 10 am. Called pt and had to leave message. Berna Matta [facility]07-29-2024 Telephone encounter Note* Telephone Encounter - Berna Matta - 06/16/2024 6:54 AM EDT Per Yoselin almendarez chat: called Sunday, decr L NT out put needs to go to IR today or tomorrow for L reposition/exchange Sent message to IR nurse 06/16 Berna Matta [facility]06-25-20[facility] Surgery Surgical operation note* Brief Op Note - Jona Clark MD - 05/13/2024 9:03 AM EDT BRIEF OPERATIVE / PROCEDURE NOTE LOG ID: [id number] SURGERY/PROCEDURE DATE: 05/13/2024 INCISION/PROCEDURE START TIME: 8:44 AM INCISION CLOSE/PROCEDURE END TIME: 8:56 AM SURGEON(S)/PROCEDURALIST(S) AND BALLISTIC TECHNICIAN(S): Surgeon(s) and Role: * Jona Clark MD - Primary No Additional Staff SURGERY/PROCEDURE(S): Bilateral nephrostomy tube exchange. ANESTHESIA: Local FINDINGS: Routine exchange of bilateral 8 [place] nephrostomy tubes ESTIMATED BLOOD LOSS: Scant SPECIMENS: None COMPLICATIONS: None PRE-OP/PRE-PROCEDURE DIAGNOSIS: Chronic ureteral obstruction. POST-OP/POST-PROCEDURE DIAGNOSIS: Same as Preop SIGNATURE: Jona Clark MD PATIENT NAME: Todd Delong DATE: May 13, 2024 TIME: 9:03 AM [facility] Work Phone: [phone]) 162-678606-25-2024 Surgical operation note* Brief Op Note - Jona Clark MD - 05/13/2024 9:03 AM EDT BRIEF OPERATIVE / PROCEDURE NOTE LOG ID: [id number] SURGERY/PROCEDURE DATE: 05/13/2024 INCISION/PROCEDURE START TIME: 8:44 AM INCISION CLOSE/PROCEDURE END TIME: 8:56 AM SURGEON(S)/PROCEDURALIST(S) AND BALLISTIC TECHNICIAN(S): Surgeon(s) and Role: * Jona Clark MD - Primary No Additional Staff SURGERY/PROCEDURE(S): Bilateral nephrostomy tube exchange. ANESTHESIA: Local FINDINGS: Routine exchange of bilateral 8 [place] nephrostomy tubes ESTIMATED BLOOD LOSS: Scant SPECIMENS: None COMPLICATIONS: None PRE-OP/PRE-PROCEDURE DIAGNOSIS: Chronic ureteral obstruction. POST-OP/POST-PROCEDURE DIAGNOSIS: Same as Preop SIGNATURE: Jona Clark MD PATIENT NAME: Todd Delong DATE: May 13, 2024 TIME: 9:03 AM documented in this encounterPremier Health Miami Valley Hospital06-05-2024 Note* Addendum Note - Corina Felix APRN.CNP - 04/23/2024 12:12 PM EDTAddended by: CORINA FELIX on: 04/23/2024 12:12 PM Modules accepted: Orders [facility]06-05-2024 Miscellaneous Notes* Addendum Note - Corina Felix [...] me know. ELAINE Dominguez documented in this encounterPremier Health Miami Valley Hospital06-05-2024 Telephone encounter Note * Telephone Encounter - Corina Felix APRN.CNP - 04/23/2024 12:04 PM EDT Spoke with patient - No local pharmacy near her carry flushes- I called [facility] and they do. Order placed and patient informed. Address and phone number provided She will call if issues arise Thanks. Corina Felix APRN.CAROLYNE [facility]06-05-2024 Telephone encounter Note* Telephone Encounter - Rowan [...] injections? Please let me know. ELAINE Dominguez [facility]04-30-2024 Surgery Surgical operation note* Brief Op Note - Rocío Tapia MD, - 03/18/2024 4:04 PM EDT BRIEF OPERATIVE / PROCEDURE NOTE LOG ID: [id number] SURGERY/PROCEDURE DATE: 03/18/2024 INCISION/PROCEDURE START TIME: 3:45 PM INCISION CLOSE/PROCEDURE END TIME: 4:02 PM SURGEON(S)/PROCEDURALIST(S) AND BALLISTIC TECHNICIAN(S): Surgeon(s) and Role: * Rocío Tapia MD, MD - Primary No Additional Staff SURGERY/PROCEDURE(S): Left neph tube replacement and right neph tune exchange ANESTHESIA: Local FINDINGS: Left was completely out, Right was dislodged. New tubes adequately placed in renal pelvises. ESTIMATED BLOOD LOSS: Minimal SPECIMENS: None COMPLICATIONS: None CLOSURE TECHNIQUE: Primary PRE-OP/PRE-PROCEDURE DIAGNOSIS: Hydronephrosis POST-OP/POST-PROCEDURE DIAGNOSIS: Same as Preop SIGNATURE: Rocío Tapia MD PATIENT NAME: Todd Delong DATE: March 18, 2024 TIME: 4:04 PM [facility] Work Phone: [phone]) 913-821304-30-2024 Surgical operation note* Brief Op Note - Rocío Tapia MD, - 03/18/2024 4:04 PM EDT BRIEF OPERATIVE / PROCEDURE NOTE LOG ID: [id number] SURGERY/PROCEDURE DATE: 03/18/2024 INCISION/PROCEDURE START TIME: 3:45 PM INCISION CLOSE/PROCEDURE END TIME: 4:02 PM SURGEON(S)/PROCEDURALIST(S) AND BALLISTIC TECHNICIAN(S): Surgeon(s) and Role: * Rocío Tapia MD, MD - Primary No Additional Staff SURGERY/PROCEDURE(S): Left neph tube replacement and right neph tune exchange ANESTHESIA: Local FINDINGS: Left was completely out, Right was dislodged. New tubes adequately placed in renal pelvises. ESTIMATED BLOOD LOSS: Minimal SPECIMENS: None COMPLICATIONS: None CLOSURE TECHNIQUE: Primary PRE-OP/PRE-PROCEDURE DIAGNOSIS: Hydronephrosis POST-OP/POST-PROCEDURE DIAGNOSIS: Same as Preop SIGNATURE: Rcoío Tapia MD PATIENT NAME: Todd Delong DATE: March 18, 2024 TIME: 4:04 PM documented in this encounterPremier Health Miami [facility] Hospital04-30-2024 Telephone encounter Note * Telephone Encounter - Berna Matta - 03/18/2024 12:13 PM EDT Wendie from IR called and pt is coming in in a few hours for her neph tube replacement. Berna Matta [facility]04-30-2024 Miscellaneous Notes* Telephone Encounter - Berna Turpin [...] inserted. This RN recommended patient come to [facility] ER for evaluation and treatment today. Please advise as patient states she would wait to leave home for a little while to hear back prior to leaving for ER. Thanks, Meredith Jacome RN documented in this encounterPremier Health Miami Valley Hospital04-30-2024 Telephone encounter Note * Telephone Encounter - Berna Matta - 03/18/2024 11:47 AM EDT Called IR and spoke with Yessica and she transferred me to the IR room and spoke with Wendie and theyare going to call the patient. Called pt to make aware they are going to call her to get her scheduled and she voiced understanding. Berna Sánchez Sigrid [facility]04-30-2024 Telephone encounter Note* Telephone Encounter - Meredith Jacome RN - 03/18/2024 10:45 AM EDT Called patient and let her know she does not need to go to ER per Dr Antonio but that she will need towait for call for reinsertion today. Patient verbalized understanding. Meredith Jacome RN [facility]-30[facility]24 Telephone encounter Note* Telephone Encounter - Meredith Jacome RN - 03/18/2024 10:38 AM EDT Attempted to call patient no answer. Left message to call office back. Meredith Jacome RN [facility]04-30-2024 Telephone encounter Note* Telephone Encounter - Jin Antonio MD - 03/18/2024 10:26 AM EDT She does not need to go to the ER, but I will place order for reinsertion. That needs to happen today. [facility]04-30-2024 Telephone encounter Note* Telephone Encounter - Meredith Jacome RN - 03/18/2024 10:06 AM EDT Sister called in left voicemail I called patient and confirmed that patient states left nephrostomytube fell out yesterday. Patient states Dr Antonio usually schedules a date/time for her to come in tohave new one inserted. This RN recommended patient come to [facility] ER for evaluation and treatment today. Please advise as patient states she would wait to leave home for a little while to hear back prior to leaving for ER. Thanks, Meredith Jacome, RN [facility]04-29-2024 Telephone encounter Note* Telephone Encounter - Eden Velez LPN - 03/17/2024 11:05 AM EDT Gena from home care called ) for ICD 10 code so script for drainage bag could be filled. I gave her the codes listed in her chart. Eden Velez LPN [facility]04-29-2024 Miscellaneous Notes* Telephone Encounter - Eden Velez LPN - 03/17/2024 11:05 AM EDT Gena from home care called ) for ICD 10 code so script for drainage bag could be filled. I gave her the codes listed in her chart. Eden Velez LPN documented in this encounterPremier Health Miami [facility] Hospital04-29-2024 Telephone encounter Note * Telephone Encounter - Rosio Archer - 03/17/2024 8:50 AM EDT Pt called regarding upcoming Interventional Rad appt wanting to change time. Referred to Interventional Radiology. Rosio Archer [facility]04-29-2024 Miscellaneous Notes* Telephone Encounter - Rosio Archer - 03/17/2024 8:50 AM EDT Pt called regarding upcoming Interventional Rad appt wanting to change time. Referred to Interventional Radiology. Rosio Archer documented in this encounterPremier Health Miami [facility] Hospital04-15-2024 History of Present illness Narrative* Jin Antonio MD - 03/03/2024 3:55 PM EDT ESTABLISHED PATIENT OFFICE VISIT F/u CRI and B ureteral obstruction. She was admitted for sepsis to [facility] for sepsis after replacing a neph tube [...] falsely depressed results. No results found for: "UGLUCPOC", "UBILIPOC", "UKETONPOC", "USGPOC", "UHBPOC", "UPHPOC", "UPROPOC","UUROPOC", "UNITPOC", "UWBCPOC", "UCOLPOC", "UCLARPOC"] ALLERGIES Allergen Reactions Methylprednisolone Other: See Comments Bactrim [Sulfametho* Shortness of Breath Influenza Virus Vac* Unknown Pravastatin Intolerance Prednisone Unknown Smjqrdv-Ppu-Jfr Red* Anaphylaxis MEDICATIONS: levothyroxine (SYNTHROID) 25 mcg tablet Take 1 tablet by mouth every afternoon. IPRATROPIUM BROMIDE NASAL Use 1 [place] in the nose every morning. pantoprazole DR (PROTONIX) 40 mg tablet Take 40 mg by mouth every morning. potassium chloride ER (KLOR-CON) 20 mEq tablet Take 20 mEq by mouth every morning. amLODIPine (NORVASC) 2.5 mg tablet Take 2.5 mg by mouth every morning. ALBUTEROL SULFATE (VENTOLIN INHALATION) Inhale 1 [place] as instructed every 4 hours as needed [...] elevated Jin Antonio MD documented in this encounterPremier Health Miami Valley Hospital03-31-2024 Discharge summary Author Julianna Matthews [facility] February 17, 2024 10:52am Note Date/Time February 17, 2024 10: 14am [facility] Medical Records Department [address] [place] [address] Discharge Summary 02/17/24 1014 MR#: [id number] Acct: [id number] Name: TODD DELONG Rep #:[id number] : [id number] 73 From: Julianna Matthews DO PCP: Dr. Gerardo García MD Status:ADM I N Location: [address] Providers Date of Admission: 02/14/24 Date of [...] female who presented to the emergency department [facility] on 02/14/2024 with shaking chills and a documented temperature at home at 100.1 and concerns for UTI. The patient reported she has a history of recurrent urinary tract infections and had a rightnephrostomy tube reinserted because it fell out. This was performed by [facility]. Her ureteral stents were changed about 1 [...] when her nephrostomy tube was changed at [place]. Vital signs on presentation showed temperature of 98.4, heart rate one407, blood pressure was 136/77, pulse ox was [...] encouraged close follow-up with her urologist and test pilot. Her renal function was stable at 1.6-1.7 [...] 02/14/24 18:22: Urine pH 7.0, Ur Specific [place] 1.010 02/14/24 18:22: Ur Specific [place] 1.005, Urine Protein 100 H 02/14/24 18:22: [...] (Auto) 46.8 L, Lymph % (Auto) 41.4 H,[place] % (Auto) 6.8, Eos % (Auto) 4.2, [...] 1. Please follow-up with your urologist and test pilot Discharge Orders/Prescriptions Prescriptions: New ciprofloxacin HCl [Cipro] [...] Self Care Charges/Coding Visit Charges Inpatient E&M: 15127 Disch Hosp >30min 02/17/24 1052 <Electronically signed by Julianna Matthews DO> Cosigner Signature (if applicable): CC: Dr. Julianna Matthews DO; Dr. Gerardo García MD~ Signed [facility] [facility] Work Phone: 1(762) 746-439703-30-2024 Progress note Author Julianna Matthews [facility] February 16, 2024 1:33pm Note Date/Time February 16, 2024 1:3 4pm [facility] Medical Records Department [address] [place] [address] Progress Note - Hospitalist 02/16/24 1329 MR#: [id number] Acct: [id number] Name: TODD DELONG MONI Rep #:[id number] : 1950 73 From: Julianna Matthews DO PCP: Dr. Gerardo García MD Status:ADM I N Location: IA3 HV407-9 Reason for Visit Reason for Visit: Chills/fever [...] 1385.42 / 1385.42 Output Total 1500 / 2050 2400 / 2400 Balance 1100 / 800 2218.75 / 1968.75 -1014.58 / -1014.58 Lab / Micro Data 02/16/24 05:40 02/16/24 05:40 Labs: Laboratory Results - last 24 hr 02/14/24 18:22: Urine Color Yellow, Urine Clarity Cloudy, Urine pH 7.0, Ur Specific [place] 1.005, Urine Protein 30 H, Urine Glucose [...] % (Auto) 48.4, Lymph % (Auto) 40.6, [place] % (Auto) 6.7, Eos % (Auto) 3.3, [...] Nephrostomy Urine Culture - Preliminary GNR lactose sanitation officer Gram negative king Rhythm Strip Rhythm Strip: [...] on admission Charges/Coding Visit Charges Inpatient E&M: 49930 Subs Hosp L2 02/16/24 1333 <Electronically signed by Julianna Matthews DO> Cosigner Signature (if applicable): CC: ~ Signed [facility] Work Phone: 1(470) 527-420303-29-2024 Progress note Author Julianna Matthews [facility] February 15, 2024 2:22pm Note Date/Time February 15, 2024 9:1 7am [facility] Medical Records Department [address] [place] [address] Progress Note - Hospitalist 02/15/24 0905 MR#: [id number] Acct: [id number] Name: TODD DELONG MONI Rep #:[id number] : 1950 73 From: Julianna Matthews DO PCP: Dr. Gerardo García MD Status:ADM I N Location: [address] Reason for Visit Reason for Visit: Chills/fever Subjective Subjective Mrs. Delong is a 73-year-old white female who presented to the emergency department [facility] on 02/14/2024 with shaking chills and a documented temperature at home at 100.1 and concerns for UTI. The patient reported she has a history of recurrent urinary tract infections and had a rightnephrostomy tube reinserted because it fell out. This was performed by [facility]. Her ureteral stents were changed about 1 [...] when her nephrostomy tube was changed at [place]. Vital signs on presentation showed temperature of 98.4, heart rate [id number], blood pressure was 136/77, pulse ox was [...] % (Auto) 61.4, Lymph % (Auto) 30.3, [place] % (Auto) 6.2, Eos % (Auto) 1.3, [...] 02/14/24 18:22: Urine pH 7.0, Ur Specific [place] 1.010 02/14/24 18:22: Ur Specific [place] 1.005, Urine Protein 100 H 02/14/24 18:22: [...] 45.7 L, Lymph % (Auto) 43.8 H, [place] % (Auto) 8.0, Eos % (Auto) 1.6, [...] on admission Charges/Coding Visit Charges Inpatient E&M: 46690 Subs Hosp L2 02/15/24 1420 <Electronically signed by Julianna Matthews DO> Cosigner Signature (if applicable): CC: ~ Signed [facility] Work Phone: 1([phone]) 167-436303-29-2024 Miscellaneous Notes* Telephone Encounter - Deepika Kong MA - 02/15/2024 8:20 AM EDT DTR Razia called [phone] She was admitted to [facility] for UTI. She wanted to know it you wanted her transferred here or just stay there for a few days. documented in this encounterPremier [facility]03-29-2024 History and physical note Author Andres Fraser [facility] February 15, 2024 4:18am Note Date/Time February 14, 2024 7:1 8pm [facility] Medical Records Department [address] [place] [address] H&P Exam - Hospitalist 02/14/24 191 MR#: [id number] Acct: [id number] Name: TODD DELONG Rep #:[id number] : 1950 73 From: Andres Holt DO PCP: Dr. Gerardo García MD Status:ADM I N Location: [facility] PC715-2 [facility] - General General Date of Admission: 02/14/24 [...] placement for IV antibiotics who presents to [facility] complaining of fever, shaking chills and dysuria. Ms. Delong reports her symptoms began approximately 1week prior to admission after her right ureteral stents were changed 1 week ago with a right nephrostomy tube having inadvertently been dislodged with it replaced by interventional radiology at [facility]. Apparently she was noted to have [...] expected to be greater than 48 hours. [facility] Medical History Acute diarrhea LULY (acute kidney [...] Allergy UNSURE OF Verified 02/14/24 17:00 REACTION Nqmuylg-YCS-YaA Reductase Allergy Anaphylaxis Verified 02/14/24 17:00 Inhibitor [...] physical activity do you participate in: walking saurabh/protestant: Non-Gnosticism/Independent seatbelt use: always do you feel safe [...] % (Auto) 61.4, Lymph % (Auto) 30.3, [place] % (Auto) 6.2, Eos % (Auto) 1.3, [...] 02/14/24 18:22: Urine pH 7.0, Ur Specific [place] 1.010 02/14/24 18:22: Ur Specific [place] 1.005, Urine Protein 100 H 02/14/24 18:22: [...] tube replaced yesterday by IR physician at [facility] with a known history of listed [...] her recent outpatient IV antibiotic treatment at [place]. 2. Chronic kidney disease stage IIIb-IV; with [...] 55 minutes. Charges/Coding Visit Charges Inpatient E&M: 71064 Init Hosp L2 02/15/24 0418 <Electronically signed by Andres Maurer DO> Cosigner Signature (if applicable): CC: Dr. Andres Maurer DO; Dr. Gerardo García MD~ Signed [facility] Work Phone: 1(197) 847-353403-28-2024 Discharge summary Author Altaf Villa [facility] February 14, 2024 7:24pm Note Date/Time February 14, 2024 5:4 6pm [facility] Medical Records Department [address] [facility] [place] [address] Emergency Department Summary 02/14/24 MR#: [id number] Acct: [id number] Name: TODD DELONG Rep #:[id number] : 1950 73 From: Altaf Villa MD [...] out. This was performed by IR at [facility]. Her ureteral stents were changed 1 [...] similar symptoms: Yes Recent Illness/Hospitalization: No PFSH [facility] Medical History Acute diarrhea LULY (acute kidney [...] Allergy UNSURE OF Verified 02/14/24 17:00 REACTION Jxwenae-HEM-StD Reductase Allergy Anaphylaxis Verified 02/14/24 17:00 Inhibitor [...] physical activity do you participate in: walking saurabh/protestant: Non-Gnosticism/Independent seatbelt use: always do you feel safe at home: Yes additional social history: - Fernando PALOMO STAC[facility] ED Constitutional Constitutional ED: Reports chills and [...] % (Auto) 61.4 Lymph % (Auto) 30.3 [place] % (Auto) 6.2 Eos % (Auto) 1.3 [...] Urine Clarity Cloudy Urine pH Ur Specific [place] Urine Protein Urine Glucose (UA) Urine Ketones [...] (Auto) Neut % (Auto) Lymph % (Auto) [place] % (Auto) Eos % (Auto) Baso % [...] Cloudy Urine pH 6.5 7.0 Ur Specific [place] 1.010 1.005 Urine Protein 100 H Urine [...] (Auto) Neut % (Auto) Lymph % (Auto) [place] % (Auto) Eos % (Auto) Baso % [...] Color Urine Clarity Urine pH Ur Specific [place] Urine Protein 30 H Urine Glucose (UA) [...] (Auto) Neut % (Auto) Lymph % (Auto) [place] % (Auto) Eos % (Auto) Baso % [...] Color Urine Clarity Urine pH Ur Specific [place] Urine Protein Urine Glucose (UA) Urine Ketones [...] (Auto) Neut % (Auto) Lymph % (Auto) [place] % (Auto) Eos % (Auto) Baso % [...] Color Urine Clarity Urine pH Ur Specific [place] Urine Protein Urine Glucose (UA) Urine Ketones [...] (Auto) Neut % (Auto) Lymph % (Auto) [place] % (Auto) Eos % (Auto) Baso % [...] Color Urine Clarity Urine pH Ur Specific [place] Urine Protein Urine Glucose (UA) Urine Ketones [...] (Auto) Neut % (Auto) Lymph % (Auto) [place] % (Auto) Eos % (Auto) Baso % [...] Color Urine Clarity Urine pH Ur Specific [place] Urine Protein Urine Glucose (UA) Urine Ketones [...] EKG is normal other than sinus tach. [place] interval is 148 ms. QS duration 86 ms. QT duration 3 and 36 ms. [place] is normal.) Treatment and Re-Evaluation :: Patient was informed of her laboratory results. Patient prefers to be admitted to [facility]. Discharge Plan Dx/Rx/DC Orders Clinical Impression: Complicated urinary tract infection, Bilateral hydronephrosis, Chronic renal failure, stage 4 (severe), Essential hypertension, Hyperlipidemia, Leukocytosis,Sinus tachycardia Disposition Disposition: Acute Care Hospital [facility] What to do if you have Problems For any increased pain, shortness of breath, bleeding, nausea or vomiting, chestpain, or any unexpected problems, contact your Primary Care Provider. Call [facility] ([phone]) or report to the closest Emergency Room. Call 911 if necessary. 02/14/241923 <Electronically signed by Altaf Villa MD> Cosigner Signature (if applicable): CC: Dr. Gerardo García MD ~ Signed [facility] Work Phone: 1(153) 856-908903-28-2024 Discharge summary Author Altaf Villa [facility] February 14, 2024 7:24pm Note Date/Time February 14, 2024 5:4 6pm [facility] Medical Records Department [address] [place] [address] Emergency Department Summary 02/14/24 MR#: [id number] Acct: [id number] Name: TODD DELONG Rep #:[id number] : 1950 73 From: Altaf Villa MD [...] out. This was performed by IR at [facility]. Her ureteral stents were changed 1 [...] Allergy UNSURE OF Verified 02/14/24 17:00 REACTION Cvcpyej-QLR-RmG Reductase Allergy Anaphylaxis Verified 02/14/24 17:00 Inhibitor [...] physical activity do you participate in: walking saurabh/protestant: Non-Gnosticism/Independent seatbelt use: always do you feel safe at home: Yes additional social history: - Fernando PALOMO ED Constitutional Constitutional ED: Reports chills [...] % (Auto) 61.4 Lymph % (Auto) 30.3 [place] % (Auto) 6.2 Eos % (Auto) 1.3 [...] Urine Clarity Cloudy Urine pH Ur Specific [place] Urine Protein Urine Glucose (UA) Urine Ketones [...] (Auto) Neut % (Auto) Lymph % (Auto) [place] % (Auto) Eos % (Auto) Baso % [...] Cloudy Urine pH 6.5 7.0 Ur Specific [place] 1.010 1.005 Urine Protein 100 H Urine [...] (Auto) Neut % (Auto) Lymph % (Auto) [place] % (Auto) Eos % (Auto) Baso % [...] Color Urine Clarity Urine pH Ur Specific [place] Urine Protein 30 H Urine Glucose (UA) [...] (Auto) Neut % (Auto) Lymph % (Auto) [place] % (Auto) Eos % (Auto) Baso % [...] Color Urine Clarity Urine pH Ur Specific [place] Urine Protein Urine Glucose (UA) Urine Ketones [...] (Auto) Neut % (Auto) Lymph % (Auto) [place] % (Auto) Eos % (Auto) Baso % [...] Color Urine Clarity Urine pH Ur Specific [place] Urine Protein Urine Glucose (UA) Urine Ketones [...] (Auto) Neut % (Auto) Lymph % (Auto) [place] % (Auto) Eos % (Auto) Baso % [...] Color Urine Clarity Urine pH Ur Specific [place] Urine Protein Urine Glucose (UA) Urine Ketones [...] (Auto) Neut % (Auto) Lymph % (Auto) [place] % (Auto) Eos % (Auto) Baso % [...] Color Urine Clarity Urine pH Ur Specific [place] Urine Protein Urine Glucose (UA) Urine Ketones [...] EKG is normal other than sinus tach. [place] interval is 148 ms. QS duration 86 ms. QT duration 3 and 36 ms. [place] is normal.) Treatment and Re-Evaluation :: Patient was informed of her laboratory results. Patient prefers to be admitted to [facility]. Discharge Plan Dx/Rx/DC Orders Clinical Impression: Complicated urinary tract infection, Bilateral hydronephrosis, Chronic renal failure, stage 4 (severe), Essential hypertension, Hyperlipidemia, Leukocytosis,Sinus tachycardia Disposition Disposition: Acute Care Hospital [facility] What to do if you have Problems For any increased pain, shortness of breath, bleeding, nausea or vomiting, chestpain, or any unexpected problems, contact your Primary Care Provider. Call [facility] ([phone]) or report to the closest Emergency Room. Call 911 if necessary. 02/14/241923 <Electronically signed by Altaf Villa MD> Cosigner Signature (if applicable): CC: Dr. Gerardo García MD ~ Signed [facility] Work Phone: [phone]) 248-758903-25-2024 Miscellaneous Notes* Telephone Encounter - Berna Matta - 02/11/2024 1:35 PM EDT Claire from IR called and she is on 02/12 at 8:00. She needs to arrive at 6:30 and be NPO after midnight, and she needs a tram driver. Called pt and had to leave message. Berna Matta * Telephone Encounter - Stacey Keating - 02/11/2024 1:14 PM EDT Received bubble chat message Sunday at 2:05PM from stating "Her RIGHT neph tube was accidentally pulled out Sunday night. I placed order for replacement. I would like it replaced Sunday" I had to leave a message with IR at 1789 02/11/24, informed them in the voicemail it needs scheduled ELISA. * Telephone Encounter - Jin Antonio MD - 02/11/2024 10:42 AM EDT I sent message to Stacey and Paula Olson. Hi with them to see if they received it. * Telephone Encounter - Berna Matta - 02/11/2024 10:18 AM EDT Pt called and is wondering about getting a neph tube placed, she had left and right and the right side came totally out on Sunday. How to proceed? Berna Matta documented in this encounterPremier [facility]02-22-2024 Miscellaneous Notes* SN Agency Breann Amos RN - 01/10/2024 11:10 AM EST SITUATION: [...] today is her dc visit, pt states " i feel like I havecome a long way". pt saw her new test pilot Dr Miller in [place] on sunday. pt states he was pleasedwith everything and wants to see her in 4 months. pt is due to have her nephrostomy tubes changed again in january. pts daughter changes her tube dressings for pt. pt is independent in draining her nephrostomy bags. pt denies any issues or problems. pt states the only issue she has is "trying to get comfortable when I sleep". pts dressings to nephrostomy tubes are clean, [...] for additional medical questions/concerns. documented in this encounterPremier Health [facility] Hospital02-15-2024 Miscellaneous Notes* SN Routine - Breann Woods RN - 01/03/2024 [...] today. pt denies any falls, she states "I amvery careful". pt denies any pain. pt states she is seeing her new dr (Dr Miller) next week, he is her test pilot. pt states she is eating and drink [...] on (be specific): discharge documented in this encounterPremier [facility]02-13-2024 Miscellaneous Notes* Sedation Documentation - Shazia Toribio RN - 01/01/2024 1:33 PM EST Reviewed flushing and site care with pt who expressed understanding,. * Sedation Documentation - Shazia Toribio RN - 01/01/2024 12:50 PM EST R PTN out of place, pt prepped for exchange. 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 sn statesher appetite is "pretty good". pt saw dr Antonio yesterday. and she is seeing test pilot next week for follow up. pt states she is urinating as well as draining urine from her bilateral nephrostomy tube bags. pt states her daughter changes her nephrostomy tube dressings for her. pt denies any s/s infection. pts vitals are wnl. pt lungs are clear. pt denies any cp or sob. pt states she is doing some light exercises in her room to "keep moving" sn edcuated pt to take it slow [...] tube dressing change and assesment, how did test pilot visit go? documented in this encounterPremier Health [facility]02-06-2024 Miscellaneous Notes* Telephone Encounter - Berna Matta - 12/25/2023 10:24 AM EST Called pt and she is on 02/06. Pt is on for a stent exchange under general anaesthesia with on 02/06. CASE# [id number] Pt is aware of prep and arrival instructions given verbally on 12/25. Pt states she is not on any blood thinners. Mailed instructions 12/25. Post op 02/24 at 1:30 in the [place] office. Berna Matta documented in this encounterPremier Health [facility] Hospital02-06-2024 Miscellaneous Notes* Telephone Encounter - Silke Esparza - 12/25/2023 8:58 AM EST LVM for patient to see if they want bi-lateral nephrostagram at [place] or [facility]. documented in this encounterPremier Health Miami [facility] Hospital02-05-2024 History of Present illness Narrative* Jin Antonio [...] falsely depressed results. No results found for: "UGLUCPOC", "UBILIPOC", "UKETONPOC", "USGPOC", "UHBPOC", "UPHPOC", "UPROPOC","UUROPOC", "UNITPOC", "UWBCPOC", "UCOLPOC", "UCLARPOC"] ALLERGIES Allergen Reactions Methylprednisolone Other: See Comments Bactrim [Sulfametho* Shortness of Breath Influenza Virus Vac* Unknown Pravastatin Intolerance Prednisone Unknown Ymdxtts-Tev-Dge Red* Anaphylaxis MEDICATIONS: pantoprazole DR (PROTONIX) 40 mg tablet Take 40 mg by mouth once daily. potassium chloride ER (KLOR-CON) 20 mEq tablet Take 20 mEq by mouth once daily. amLODIPine (NORVASC) 2.5 mg tablet Take 2.5 mg by mouth once daily. ALBUTEROL SULFATE (VENTOLIN INHALATION) Inhale 1 [place] as instructed every 4 hours as needed [...] and make plans to exchange her stents. Keflex proph for the procedure. - BASIC METABOLIC PNL - IR NEPHROSTOGRAM - SURGICAL REQUEST - ELECTIVE (06/2020) Jin Antonio MD documented in this encounterPremier Health [facility]02-02-2024 Miscellaneous Notes* Telephone Encounter - Kari Flor - 12/21/2023 4:31 PM EST Called and left a message for Shazia. Informing her of message from Dr. Antonio. Inderjit number is [phone] Kari Flor * Telephone Encounter - Jin Antonio MD [...] it clean and dry? Please advise. Kari Flor documented in this encounterPremier Health [facility]02-02-2024 Miscellaneous Notes* CARE COORDINATION - Emanuel Curtis RN - 12/21/2023 2:40 PM EST This SN has not heard back from the office of Dr. Veronica Antonio. This SN attempted to call the office once again to follow up. This SN contacted the [place] office and was informed "there was no Dr. Veronica Antonio affiliated with that [place] office." This SN reaserched other options and noted there was a [facility] office associated with this particulary Dr. Veronica Antonio. This SN then placed a call and left a message for the [facility] office. This SN reported the same issues from yesterday and am now awaiting a call back with recommendations.Patient has a follow up appointment scheduled with Dr. Antonio on Sunday12/24/23. documented in this encounterPremier Health [facility]02-01-2024 Miscellaneous Notes* Telephone Encounter - Joey Strange RN - 12/20/2023 1:28 PM EST Jerry I am the home care nurse seeing this pt today for drain care. Pt's right nephrostomy tube site, theold dressing was saturated with yellow serous drainage (smelled of urine, last dressing change 1 week ago.) Pt reports that she has been waking up with "my bed and clothes being damp" recently in thepast 2 weeks. No redness [...] was regular at 84. Please call pt [phone] or pt's daughter [phone] for adivce. Thank you documented in this encounterPremier Health Miami [facility] Hospital02-01-2024 Miscellaneous Notes* SN Routine - Joey Strange [...] pt denies dizziness, CP, palpitations. pt states, "well that is all unusual for me." SN reviewed VS and noted pt's BP has increased. pt states, "when I wake up sometimes, my nightgown is damp on the right side." SN performed nephrostomy tube drain care. SN noted that dressing to rightnephrostomy tube is saturated, smells of urine. no redness around site or pain, suture intact. nephrostomy tube is draining clear yellow urine into drainage bag still. pt states, "it was pink once last week, but it went away quick." no complications with left nephrostomy tube drain site, clear yellow urine noted in drainage bag. pt states she still voids as well and is incontinent. pt denies GI issues. SN re-checked pt's VS, HR regular, HTN noted. pt does not have an automatic BP cuff in the home to check BP. pt states Dr. Murrell, "is my new family dr, but I haven't seen him yet, so he doesn't know what is going on." SN sent high-priority in-basket message to Dr. [...] issues, HTN, irregular HR. documented in this encounterPremier Health [facility]12-26-2023 Discharge summary Author Rafa Lofton [facility] November 13, 2023 11:05am Note Date/Time November 13, 2023 11:01am [facility] Medical Records Department [address] [place] [id number] Discharge Summary 11/13/23 1058 MR#: [id number] Acct: [id number] Name: TODD DELONG Rep #:[id number] : 1950 73 From: Rafa Lofton DO PCP: Dr. Gerardo García MD Status:ADM I N [facility] Date of Admission: 11/10/23 Primary Care [...] % (Auto) Cancelled, Lymph % (Auto) Cancelled, [place] % (Auto) Cancelled, Eos % (Auto) Cancelled, [...] Tear DropCells Cancelled, Ovalocytes Cancelled, Stomatocytes Cancelled, [place] Bodies Cancelled, [place] Cells Cancelled, Bite Cells Cancelled, Crenated Cell [...] (Auto) 74.1 H, Lymph % (Auto) 19.0, [place] % (Auto) 4.5, Eos % (Auto) 1.0, [...] Self Care Charges/Coding Visit Charges Inpatient E&M: 27713 Disch Hosp >30min 11/13/23 1105 <Electronically signed by Rafa Lofton DO> Cosigner Signature (if applicable): CC: Dr. Rafa Lofton DO; Dr. Gerardo García MD~ Signed [facility] Work Phone: 1(935) 655-910412-26-2023 Progress note Author Rafa Lofton [facility] November 13, 2023 10:58am Note Date/Time November 13, 2023 7:33am [facility] Medical Records Department [address] [place] [address] Progress Note - Hospitalist 11/13/23 0729 MR#: [id number] Acct: [id number] Name: TODD DELONG MONI Rep #:[id number] : 1950 73 From: Rafa Lofton DO PCP: Dr. Gerardo García MD Status:ADM I N Location: [place] [address] Reason for Visit Reason for Visit: Diagnoses [...] % (Auto) Cancelled, Lymph % (Auto) Cancelled, [place] % (Auto) Cancelled, Eos % (Auto) Cancelled, [...] Drop Cells Cancelled, Ovalocytes Cancelled, Stomatocytes Cancelled, [place] Bodies Cancelled, [place] Cells Cancelled, Bite Cells [...] (Auto) 74.1 H, Lymph % (Auto) 19.0, [place] % (Auto) 4.5, Eos % (Auto) 1.0, [...] Cosigner Signature (if applicable): CC: ~ Signed [facility] Work Phone: 1(310) 555-377212-25-2023 Progress note Author Rafa Koehlerradha [facility] November 12, 2023 10:42am Note Date/Time November 12, 2023 7:30am [facility] Medical Records Department [address] [place] [address] Progress Note - Hospitalist 11/12/23 0726 MR#: [id number] Acct: [id number] Name: TODD DELONG Rep #:[id number] : 1950 73 From: Rafa Lofton DO PCP: Dr. Gerardo García MD Status:ADM I N Location: [place] [address] Reason for Visit Reason for Visit: Diagnoses [...] 77.4 H, Lymph % (Auto) 16.6 L, [place] % (Auto) 4.4, Eos % (Auto) 0.1, [...] sq daily Charges/Coding Visit Charges Inpatient E&M: 98304 Subs Hosp L2 11/12/23 1042 <Electronically signed by Rafa Lofton DO> Cosigner Signature (if applicable): CC: ~ Signed [facility] Work Phone: 1(385) 884-421212-24-2023 Progress note Author Rafa Lofton [facility] November 11, 2023 11:07am Note Date/Time November 11, 2023 7:32am [facility] Medical Records Department [address] [place] [address] Progress Note - Hospitalist 11/11/23722 MR#: [id number] Acct: [id number] Name: TODD DELONG Rep #:[id number] : 1950 73 From: Rafa Lofton DO PCP: Dr. Gerardo García MD Status:ADM I N Location: [place] 263156-1 Reason for Visit Reason for Visit: Diagnoses [...] Clarity Cloudy, Urine pH 6.5, Ur Specific [place] 1.010, Urine Protein 100 H, Urine Glucose [...] % (Auto) 56.4, Lymph % (Auto) 36.1, [place] % (Auto) 5.9, Eos % (Auto) 0.6, [...] % (Auto) 70.1 H, Lymph % (Auto)22.1, [place] % (Auto) 6.4, Eos % (Auto) 0.2, [...] sq daily Charges/Coding Visit Charges Inpatient E&M: 74648 Subs Hosp L2 11/11/23 1107 <Electronically signed by Rafa Lofton DO> Cosigner Signature (if applicable): CC: ~ Signed [facility] Work Phone: 1(612) 790-715312-24-2023 History and physical note Author Andres Fraser [facility] November 11, 2023 6:53am Note Date/Time November 10, 2023 10:59pm [facility] Medical Records Department [address] [place] [address] H&P Exam - Hospitalist 11/10/232220 MR#: [id number] Acct: [id number] Name: TODD DELONG Rep #:[id number] : 1950 73 From: Andres Holt DO PCP: Dr. eGrardo García MD Status:ADM I N Location: [place] [address] HPI - General General Date of Admission: 11/10/23 Date of [...] started on oral Keflex who presents to [facility] complaining of worsening UTI and spite of [...] expected to be greater than 48 hours. [facility] Medical History Acute diarrhea LULY (acute kidney [...] Allergy UNSURE OF Verified 11/10/23 20:07 REACTION Oewbicf-BSO-UxC Reductase Allergy Anaphylaxis Verified 11/10/23 20:07 Inhibitor [...] physical activity do you participate in: walking saurabh/protestant: Non-Gnosticism/Independent seatbelt use: always do you feel safe [...] Clarity Cloudy, Urine pH 6.5, Ur Specific [place] 1.010, Urine Protein 100 H, Urine Glucose [...] % (Auto) 56.4, Lymph % (Auto) 36.1, [place] % (Auto) 5.9, Eos % (Auto) 0.6, [...] responsive hypotension Charges/Coding Visit Charges Inpatient E&M: 29032 Init Hosp L2 11/11/23 0653 <Electronically signed by Andres Maurer DO> Cosigner Signature (if applicable): CC: Dr. Andres Maurer DO; Dr. Gerardo García MD~ Signed [facility] Work Phone: [phone] 683-373212-24-2023 Discharge summary Author South Gutiérrez [facility] November 10, 2023 10:27pm Note Date/Time November 10, 2023 9:10pm [facility] Medical Records Department [address] [place] [address] Emergency Department Summary 11/10/23 MR#: [id number] Acct: [id number] Name: JAVIER,TODD MONI Rep #:[id number] : 1950 73 From: South Gutiérrez MD [...] Allergy UNSURE OF Verified 11/10/23 20:07 REACTION Epbixpo-OTK-RoR Reductase Allergy Anaphylaxis Verified 11/10/23 20:07 Inhibitor [...] physical activity do you participate in: walking saurabh/protestant: Non-Gnosticism/Independent seatbelt use: always do you feel safe at home: Yes additional social history: - Fernando ROS ROS ED ROS Narrative Low-grade temperature. Chills. [...] % (Auto) 56.4 Lymph % (Auto) 36.1 [place] % (Auto) 5.9 Eos % (Auto) 0.6 [...] Clarity Cloudy Urine pH 6.5 Ur Specific [place] 1.010 Urine Protein 100 H Urine Glucose [...] your Primary Care Provider. Call [facility] ([phone]) or report to the closest Emergency Room. Call 911 if necessary. 11/10/232226 <Electronically signed by South Gutiérrez MD> Cosigner Signature (if applicable): CC: Dr. Gerardo García MD ~ Signed [facility] Work Phone: [phone]) 970-765912-04-2023 Miscellaneous Notes* Telephone Encounter - Berna Matta - 10/22/2023 2:00 PM EST Pt had stent placed on 10/11 how to proceed? [facility] Discharge summary Author Carlene Bower [facility] October 09, 2023 4:39pm Note Date/Time October 09, 2023 2:01pm [facility] Medical Records Department [address] [place] [address] Emergency Department Summary 10/09/23 MR#: [id number] Acct: [id number] Name: TODD DELONG Rep #:[id number] : 1950 73 From: Carlene Bower MD [...] this she tends to get chronic UTIs. [facility] Medical History Acute diarrhea LULY (acute [...] Allergy UNSURE OF Verified 10/09/23 16:10 REACTION Mrglqvw-BAS-KoB Reductase Allergy Anaphylaxis Verified 10/09/23 13:34 Inhibitor [...] physical activity do you participate in: walking saurabh/protestant: Non-Gnosticism/Independent seatbelt use: always do you feel safe at home: Yes additional social history: - Fernando PALOMO STACIA ED Constitutional Constitutional ED: Denies chills or [...] Medical decision making narrative: Patient placed on radiographer cardiac catheterization. IV line initiated. Labwork obtained to evaluate [...] abdomen for some form of cancer in thepast and she has bilateral ureteral scarring that [...] % (Auto) 64.5 Lymph % (Auto) 26.5 [place] % (Auto) 5.7 Eos % (Auto) 1.0 [...] Clarity Cloudy Urine pH 6.0 Ur Specific [place] 1.010 Urine Protein 100 H Urine Glucose [...] culture obtained yesterdayis growing gram-negative rods lactose sanitation officer's. Patient is given a dose of IV [...] has been accepted by hospitalist [facility]. We will arrange transport once bed [...] Disposition Disposition: Acute Care Hospital Discharge Location: [facility] What to do if you have Problems For any increased pain, shortness of breath, bleeding, nausea or vomiting, chestpain, or any unexpected problems, contact your Primary Care Provider. Call [facility] ([phone]) or report to the closest Emergency Room. Call 911 if necessary. 10/09/23 1639 <Electronically signed by Carlene Bower MD> Cosigner Signature (if applicable): CC: Dr. Gerardo García MD ~ Signed [facility] Work Phone: [phone]) 727-305711-04-2023 Discharge summary Author Rafa Lofton [facility] September 22, 2023 10:55am Note Date/Time September 22, 2023 1 0:49am [facility] Medical Records Department [address] [place] [address] Discharge Summary 09/22/23 1047 MR#: [id number] Acct: [id number] Name: TODD DELONG Rep #:[id number] : 1950 73 From: Rafa Lofton DO PCP: Dr. Gerardo García MD Status:ADM I N Location: [facility] WB066-3 Providers Date of Admission: 09/19/23 Primary Care Physician: Dr. Gerardo García MD Consultations 09/19/23 14:38 Consult: Infectious Disease Routine Consulting Provider: Ky Goddard Reason for Consult: MDR UTI with Pseudomonas EMERGENT Consult: No Notified: Yes Date Notified: 09/19/23 Time Notified: 13:34 Method of Notification: via texting 09/20/23 09:21 Consult: Urology Routine Consulting Provider: Joshua Strickland Reason for Consult: uti, hydronephrosis EMERGENT Consult: No Notified: Yes Date Notified: 09/20/23 Time Notified: [...] % (Auto) 51.1, Lymph % (Auto) 39.6, [place] % (Auto) 6.1, Eos % (Auto) 1.9, [...] % (Auto) 48.9, Lymph % (Auto) 40.4, [place] % (Auto) 7.5, Eos % (Auto) 2.0, [...] Self Care Charges/Coding Visit Charges Inpatient E&M: 92488 Disch Hosp >30min 09/22/23 1055 <Electronically signed by Rafa Lofton DO> Cosigner Signature (if applicable): CC: Dr. Rafa Lofton DO; Dr. Gerardo García MD~ Signed [facility] Work Phone: 1([phone]) 351-989511-04-2023 Progress note Author Rafa Lofton [facility] September 22, 2023 10:47am Note Date/Time September 22, 2023 7 :37am [facility] Medical Records Department [address] [place] [address] Progress Note - Hospitalist 09/22/23 0732 MR#: [id number] Acct: [id number] Name: TODD DELONG Rep #:[id number] : 1950 73 From: Rafa Lofton DO PCP: Dr. Gerardo García MD Status:ADM I N Location: [facility] [id number] Reason for Visit Reason for Visit: Diagnoses [...] % (Auto) 51.1, Lymph % (Auto) 39.6, [place] % (Auto) 6.1, Eos % (Auto) 1.9, [...] % (Auto) 48.9, Lymph % (Auto) 40.4, [place] % (Auto) 7.5, Eos % (Auto) 2.0, [...] Cosigner Signature (if applicable): CC: ~ Signed [facility] Work Phone: 1([phone]) 552-905811-04-2023 Progress note Author Joshua Strickland [facility] September 22, 2023 9:04am Note Date/Time September 22, 2023 9 :04am [facility] Medical Records Department [address] [place] [address] Progress Note - Urology 09/22/23 0904 MR#: [id number] Acct: [id number] Name: TODD DELONG MONI Rep #:[id number] : 1950 73 From: Joshua Strickland MD PCP: Dr. Gerardo García MD Status:ADM I N Location: [place] [address] Subjective Subjective cr improvingto 2.05 Ct scan [...] % (Auto) 51.1, Lymph % (Auto) 39.6, [place] % (Auto) 6.1, Eos % (Auto) 1.9, [...] % (Auto) 48.9, Lymph % (Auto) 40.4, [place] % (Auto) 7.5, Eos % (Auto) 2.0, [...] Signed: Ike Colón MD at 12:52 EDT Reading Location ID and State: [address] [place] [address] , Service support , 09/22/23 0904 <Electronically signed by Joshua Strickland MD> Cosigner Signature (if applicable): CC: ~ Signed [facility] Work Phone: [phone]) 730-398211-03-2023 Progress note Author Alivia [facility] September 21, 2023 5:23pm Note Date/Time September 21, 2023 3 :24pm [facility] Medical Records Department [address] [place] [address] Progress Note 09/21/23 1521 MR#: [id number] Acct: [id number] Name: TODD DELONG Rep #:[id number] : 1950 73 From: Alivia Mcrae MD PCP: Dr. Gerardo García MD Status:ADM I N Location: [place] [address] Subjective Subjective Patient seen and examined. She [...] renally dosed Charges/Coding Visit Charges Inpatient E&M: 26601 Subs Hosp L2 09/21/23 1723 <Electronically signed by Alivia Mcrae MD> Alivia Mcrae MD Cosigner Signature (if applicable): CC: ~ Signed [facility] Work Phone: [phone]) 654-605611-03-2023 Progress note Author Ky Goddard [facility] September 21, 2023 12:24pm Note Date/Time September 21, 2023 1 2:25pm [facility] Medical Records Department [address] [place] [address] Progress Note - Infect Disease 09/21/23 1223 MR#: [id number] Acct: [id number] Name: TODD DELONG Rep #:[id number] : 1950 73 From: Ky tejeda MD PCP: Dr. Gerardo García MD Status:ADM I N Location: [place] [address] Physical Exam Narrative Feeling better, no fever, [...] Cosigner Signature (if applicable): CC: ~ Signed [facility] Work Phone: [phone] 164-247611-03-2023 Consult note Author Joshua Strickland [facility] September 21, 2023 8:24am Note Date/Time September 21, 2023 8 :24am [facility] Medical Records Department [address] [place] [address] Consultation - Urology 09/21/23 0819 MR#: [id number] Acct: [id number] Name: TODD DELONG Rep #:[id number] : 1950 73 From: Joshua Strickland MD PCP: Dr. Gerardo García MD Status:ADM I N Location: [place] [address] HPI Consult Data Date of Consult: 09/21/23 [...] function and recently cr improving. will Follow. [facility] Medical History Acute diarrhea LULY (acute kidney [...] Severe Shortness Verified 09/19/23 09:25 of breath Mruysvx-ZVB-SfC Reductase Allergy Anaphylaxis Verified 09/19/23 09:25 Inhibitor [...] physical activity do you participate in: walking saurabh/protestant: Non-Gnosticism/Independent seatbelt use: always do you feel safe [...] Goddard MD; Dr. Gerardo García MD~ Signed [facility] Work Phone: 1(239) 918-527211-02-2023 Progress note Author Andres Fraser [facility] September 20, 2023 1:13pm Note Date/Time September 20, 2023 7 :13am [facility] Medical Records Department [address] [place] [address] Progress Note - Hospitalist 09/20/23711 MR#: [id number] Acct: [id number] Name: TODD DELONG Rep #:[id number] : 1950 73 From: Andres Holt DO PCP: Dr. Gerardo García MD Status:ADM I N Location: [place] [address] Reason for Visit Reason for Visit: Diagnoses [...] % (Auto) 64.2, Lymph % (Auto) 28.9, [place] % (Auto) 5.5, Eos % (Auto) 0.3, [...] Clarity Cloudy, Urine pH 6.0, Ur Specific [place] 1.015, Urine Protein 100 H, Urine Glucose [...] Javan Grady MD at 22:38 EDT , Physical Exam Const alert, oriented x3, [...] Finally, we will consult Dr. Goddard of [place] to see this patient in consultation later [...] Multi Select Codes Visit Charges Visit Charges: 65858 Subs Hosp L2 09/20/23 1313 <Electronically signed by Andres Maurer DO> Cosigner Signature (if applicable): CC: ~ Signed [facility] Work Phone: 1(908) 331-879111-02-2023 Consult note Author Ky Goddard [facility] September 20, 2023 10:45am Note Date/Time September 20, 2023 1 0:45am [facility] Medical Records Department [address] [place] [address] Consultation - Infectious Dx 09/20/23 1041 MR#: [id number] Acct: [id number] Name: TODD DELONG Rep #:[id number] : 1950 73 From: Ky tejeda MD PCP: Dr. Gerardo García MD Status:ADM I N Location: [place] [address] Assessment & Plan Assessment/Plan (1) Complicated urinary [...] performed and neg except as noted above. [facility] Medical History Acute diarrhea LULY (acute kidney [...] Severe Shortness Verified 09/19/23 09:25 of breath Llxqwlm-YES-WoN Reductase Allergy Anaphylaxis Verified 09/19/23 09:25 Inhibitor [...] physical activity do you participate in: walking saurabh/protestant: Non-Gnosticism/Independent seatbelt use: always do you feel safe [...] Clarity Cloudy, Urine pH 6.0, Ur Specific [place] 1.015, Urine Protein 100 H, Urine Glucose [...] Neut % (Auto) 51.9, Lymph % (Auto) 39.5,[place] % (Auto) 6.1, Eos % (Auto) 1.5, [...] Catch Urine Culture - Preliminary GNR lactose sanitation officer GNR lactose sanitation officer#2 09/19/23 10:24 Stool C. difficile DNA Amplification - Final Radiology Impression Renal Ultrasound 09/19/23 14:38 IMPRESSION: Bilateral hydronephrosis. Electronically Signed: Javan Grady MD at 22:38 EDT , 09/20/23 1045 <Electronically signed by Ky Goddard MD> Cosigner Signature (if applicable): CC: Dr. Ky Goddard MD; Dr. Gerardo García MD~ Signed [facility] Work Phone: [phone]) 893-495811-01-2023 History and physical note Author Andres Fraser [facility] September 19, 2023 4:17pm Note Date/Time September 19, 2023 1 :42pm [facility] Medical Records Department [address] [place] [address] H&P Exam - Hospitalist 09/19/23 1338 MR#: [id number] Acct: [id number] Name: TODD DELONG MONI Rep #:[id number] : 1950 73 From: Andres Holt DO PCP: Dr. Gerardo García MD Status:ADM I N Location: [facility] [id number] HPI - General General Date of Admission: [...] placement for IV antibiotics who presents to [facility] complaining of low-grade fever with loose stools [...] expected to be greater than 48 hours. [facility] Medical History Acute diarrhea LULY (acute kidney [...] Severe Shortness Verified 09/19/23 09:25 of breath Beohhmy-ZDL-GtM Reductase Allergy Anaphylaxis Verified 09/19/23 09:25 Inhibitor [...] physical activity do you participate in: walking saurabh/protestant: Non-Gnosticism/Independent seatbelt use: always do you feel safe [...] % (Auto) 64.2, Lymph % (Auto) 28.9, [place] % (Auto) 5.5, Eos % (Auto) 0.3, [...] Clarity Cloudy, Urine pH 6.0, Ur Specific [place] 1.015, Urine Protein 100 H, Urine Glucose [...] Maurer DO; Dr. Gerardo García MD~ Signed [facility] Work Phone: [phone] Discharge summary Author Altaf Villa [facility] September 19, 2023 12:45pm Note Date/Time September 19, 2023 9 :58am [facility] Medical Records Department [address] [place] [address] Emergency Department Summary 09/19/23 MR#: [id number] Acct: [id number] Name: TODD DELONG Rep #:[id number] : 1950 73 From: Altaf Villa MD [...] Prior similar symptoms: No Recent Illness/Hospitalization: Yes [facility] Medical History Acute diarrhea LULY (acute [...] Severe Shortness Verified 09/19/23 09:25 of breath Grsyoxj-NMF-BfF Reductase Allergy Anaphylaxis Verified 09/19/23 09:25 Inhibitor [...] physical activity do you participate in: walking saurabh/protestant: Non-Gnosticism/Independent seatbelt use: always do you feel safe [...] % (Auto) 64.2 Lymph % (Auto) 28.9 [place] % (Auto) 5.5 Eos % (Auto) 0.3 [...] Clarity Cloudy Urine pH 6.0 Ur Specific [place] 1.015 Urine Protein 100 H Urine Glucose [...] superimposed on chronic kidney disease Disposition Disposition: [facility] What to do if you have Problems For any increased pain, shortness of breath, bleeding, nausea or vomiting, chestpain, or any unexpected problems, contact your Primary Care Provider. Call [facility] ([phone]) or report to the closest Emergency Room. Call 911 if necessary. 09/19/23 1245 <Electronically signed by Altaf Villa MD> Cosigner Signature (if applicable): CC: Dr. Gerardo García MD ~ Signed [facility] Work Phone: [phone] 100-374911-01-2023 Discharge summary Author [facility] September 19, 2023 12:45pm Note Date/Time September 19, 2023 9 :58am [facility] Medical Records Department [address] [place] [address] Emergency Department Summary 09/19/23 MR#: [id number] Acct: [id number] Name: TODD DELONG MONI Rep #:[id number] : 1950 73 From: Altaf Villa MD [...] similar symptoms: No Recent Illness/Hospitalization: Yes [facility] Medical History Acute diarrhea LULY [...] Severe Shortness Verified 09/19/23 09:25 of breath Xwotkpa-XOZ-IoV Reductase Allergy Anaphylaxis Verified 09/19/23 09:25 Inhibitor [...] physical activity do you participate in: walking saurabh/protestant: Non-Gnosticism/Independent seatbelt use: always do you feel safe at home: Yes additional social history: - Fernando PALOMO ROS ED Constitutional Constitutional ED: Reports chills, fever(s) [...] % (Auto) 64.2 Lymph % (Auto) 28.9 [place] % (Auto) 5.5 Eos % (Auto) 0.3 [...] Clarity Cloudy Urine pH 6.0 Ur Specific [place] 1.015 Urine Protein 100 H Urine Glucose [...] kidney disease Disposition Disposition: Acute Care Hospital [facility] What to do if you have Problems For any increased pain, shortness of breath, bleeding, nausea or vomiting, chestpain, or any unexpected problems, contact your Primary Care Provider. Call [facility] ([phone]) or report to the closest Emergency Room. Call 911 if necessary. 09/19/23 1245 <Electronically signed by Altaf Villa MD> Cosigner Signature (if applicable): CC: Dr. Gerardo García MD ~ Signed [facility] Work Phone: 1([phone]) 406-161109-19-2023 Discharge summary Author John Light [facility] August 07, 2023 11:51am Note Date/Time August 07, 2023 11:47am [facility] Medical Records Department [address] [place] [address] Instructions for Home/Discharge Instructions 08/07/23 1144 MR#: [id number] Acct: [id number] Name: TODD DELONG Rep #:[id number] : 1950 72 From: John Light DO [...] pseudomonas pyelonephritis weekly bmp, cbc. Fax to [phone] Continued albuterol sulfate [Ventolin HFA] 90 mcg/actuation [...] MD; Dr. Gerardo García MD ~ Signed [facility] Work Phone: 1([phone]) 119-340409-18-2023 Consult note Author Ky [facility] August 06, 2023 7:15pm Note Date/Time August 06, 2023 7:15pm [facility] Medical Records Department [address] [place] [address] Consultation - Infectious Dx 08/06/231911 MR#: [id number] Acct: [id number] Name: TODD DELONG Rep #:[id number] : 1950 72 From: Ky tejeda MD PCP: Dr. Gerardo García MD Status:ADM I N Location: [place] [address] Assessment & Plan Assessment/Plan (1) Hydronephrosis: QUALIFIERS: Hydronephrosis type: other Qualified Code(s): N13.39 - Other hydronephrosis (2) Complicated urinary tract infection: PLAN: Now s/p 08/06/23 bilat stent exchange by Dr. Strickland. Ucx again with PsA. On zosyn. Will order midline and 2 week course home iv abx. Will follow, thank you, d/w supervisor case loading HPI Consult Data Date of Consult: 08/06/23 [...] performed and neg except as noted above. [facility] Medical History Acute diarrhea LULY (acute kidney [...] Severe Shortness Verified 06/08/23 09:50 of breath Wvupdci-IIR-BlN Reductase Allergy Anaphylaxis Verified 06/08/23 09:50 Inhibitor [...] physical activity do you participate in: walking saurabh/protestant: Non-Gnosticism/Independent seatbelt use: always do you feel safe [...] Nitza MD; Dr. Gerardo García MD~ Signed [facility] Work Phone: 1([phone]) 985-894909-18-2023 Progress note Author John Light [facility] August 06, 2023 6:05pm Note Date/Time August 06, 2023 6:05pm [facility] Medical Records Department [address] [place] [address] Progress Note - Hospitalist 08/06/23 175 MR#: [id number] Acct: [id number] Name: TODD DELONG Rep #:[id number] : 1950 72 From: John Light DO PCP: Dr. Gerardo García MD Status:ADM I N Location: [place] [address] Reason for Visit Reason for Visit: Diagnoses [...] 35 minutes Charges/Coding Visit Charges Inpatient E&M: 67852 Subs Hosp L2 08/06/23 180 <Electronically signed by John Light DO> Cosigner Signature (if applicable): CC: ~ Signed [facility] Work Phone: 1([phone]) 629-284409-18-2023 Procedure [facility] 08-05-2023 Progress note Author Rafa Lofton [facility] August 05, 2023 12:39pm Note Date/Time August 05, 2023 7:21am [facility] Medical Records Department [address] [place] [address] Progress Note - Hospitalist 08/05/23716 MR#: [id number] Acct: [id number] Name: TODD DELONG Rep #:[id number] : 1950 72 From: Rafa Lofton DO PCP: Dr. Gerardo García MD Status:ADM I N Location: [place] [address] Reason for Visit Reason for Visit: Diagnoses [...] Neut % (Auto) 55.3, Lymph % (Auto) 35.3,[place] % (Auto) 7.0, Eos % (Auto) 1.5, [...] Disposition: TBD Charges/Coding Visit Charges Inpatient E&M: 24559 Subs Hosp L2 08/05/23 1239 <Electronically signed by Rafa Lofton DO> Cosigner Signature (if applicable): CC: ~ Signed [facility] Work Phone: [phone]) [phone] Consult note Author Joshua Strickland [facility] August 05, 2023 11:50am Note Date/Time August 05, 2023 11:50am [facility] Medical Records Department [address] [place] [address] Consultation 08/05/23 1149 MR#: [id number] Acct: [id number] Name: TODD DELONG MONI Rep #:[id number] : 1950 72 From: Joshua Strickland MD PCP: Dr. Gerardo García MD Status:ADM I N Location: [place] [address] Consult Date of Consult: 08/05/23 Reason for Consult 72-year-old female presents the hospital with urinary tract infection with Pseudomonas she is on appropriate antibiotics to cover the Pseudomonas. I have her on the schedule for tomorrow for cystoscopy and bilateral stent changes and can upsize the stents from 6 Polish 7 Polish to help drain both kidneys she still [...] Echeverria MD; Dr. Gerardo García MD~ Signed [facility] Work Phone: [phone]) 171-506609-16-2023 Progress note Author Rafa Lofton [facility] August 04, 2023 12:41pm Note Date/Time August 04, 2023 7:26am [facility] Medical Records Department [address] [place] [address] Progress Note - Hospitalist 08/04/2319 MR#: [id number] Acct: [id number] Name: TODD DELONG Rep #:[id number] : 1950 72 From: Rafa Loftno DO PCP: Dr. Gerardo García MD Status:ADM I N Location: [place] [address] Reason for Visit Reason for Visit: Diagnoses [...] H 96 Room Air 08/04/23 05:45 08/04/23 04:09 08/04/23 04:09 08/04/23 04:09 08/04/23 04:09 08/04/23 04:10 Oxygen Delivery Method Room Air Weight: [...] 73.5 H, Lymph % (Auto) 17.9 L, [place] % (Auto) 7.7, Eos % (Auto) 0.0, [...] % (Auto) 64.3, Lymph % (Auto) 26.0, [place] % (Auto) 8.1, Eos % (Auto) 0.6, [...] her pyelonephritis. Charges/Coding Visit Charges Inpatient E&M: 56465 Subs Hosp L2 08/04/23 1241 <Electronically signed by Rafa Lofton DO> Cosigner Signature (if applicable): CC: ~ Signed [facility] Work Phone: [phone]) [phone] Consult note Author Joshua Strickland [facility] August 04, 2023 9:19am Note Date/Time August 04, 2023 9:20am [facility] Medical Records Department [facility] [address] [address] Consultation 08/04/23 0917 MR#: [id number] Acct: [id number] Name: TODD DELONG Rep #:[id number] : 1950 72 From: Joshua Strickland MD PCP: Dr. Gerardo García MD Status:ADM I N Location: [place] [address] Consult Date of Consult: 08/04/23 Reason for [...] Echeverria MD; Dr. Gerardo García MD~ Signed [facility] Work Phone: [phone] 559-871909-15-2023 Consult note Author Joshua Strickland [facility] August 03, 2023 5:05pm Note Date/Time August 03, 2023 5:05pm [facility] Medical Records Department [address] [place] [address] Consultation - Urology 08/03/23 1703 MR#: [id number] Acct: [id number] Name: TODD DELONG Rep #:[id number] : 1950 72 From: Joshua Strickland MD PCP: Dr. Gerardo García MD Status:ADM I N Location: [place] [address] Assessment & Plan Assessment/Plan (1) Complicated urinary [...] that made her come to the hospital. [facility] Medical History Acute diarrhea LULY (acute kidney [...] Severe Shortness Verified 06/08/23 09:50 of breath Nrmdbpt-RFG-SuV Reductase Allergy Anaphylaxis Verified 06/08/23 09:50 Inhibitor [...] physical activity do you participate in: walking saurabh/protestant: Non-Gnosticism/Independent seatbelt use: always do you feel safe [...] 73.5 H, Lymph % (Auto) 17.9 L, [place] % (Auto) 7.7, Eos % (Auto) 0.0, [...] Echeverria MD; Dr. Gerardo García MD~ Signed [facility] Work Phone: [phone] Progress note Author Rafa Lofton [facility] August 03, 2023 12:30pm Note Date/Time August 03, 2023 7:32am [facility] Medical Records Department [address] [place] [address] Progress Note - Hospitalist 08/03/23 0721 MR#: [id number] Acct: [id number] Name: TODD DELONG Rep #:[id number] : 1950 72 From: Rafa Lofton DO PCP: Dr. Gerardo García MD Status:ADM I N Location: [place] [id number] Reason for Visit Reason for Visit: Diagnoses [...] (Auto) 74.9 H, Lymph % (Auto) 16.0 L,[place] % (Auto) 7.9, Eos % (Auto) 0.1, Baso % (Auto) 0.4, Absolute Neuts (auto) 14.7 H, Absolute Lymphs (auto) 3.15, Nucleated RBC % 0, Differential Comment SCANNED, Diff Path Review May foll, Sodium 136, Potassium 3.6, Chloride 107, Carbon [...] Clarity Cloudy, Urine pH 6.0, Ur Specific [place] 1.010, Urine Protein 100 H, Urine Glucose [...] SQ heparin Charges/Coding Visit Charges Inpatient E&M: 87304 Subs Hosp L2 08/03/23 1230 <Electronically signed by Rafa Lofton DO> Cosigner Signature (if applicable): CC: ~ Signed [facility] Work Phone: [phone] 303-452109-14-2023 Consult note Author Holly Echeverria [facility] August 02, 2023 7:40pm Note Date/Time August 02, 2023 4:36pm [facility] Medical Records Department [address] [place] [address] Pharmacokinetic/Renal -Consult 08/02/23 1636 MR#: [id number] Acct: [id number] Name: TODD DELONG Rep #:[id number] : 1950 72 From: Andrei Coyne PCP: Dr. Gerardo García MD Status:ADM I N Y Location: [facility] XX111-9 Consult Antibiotic Management Pharmacy has been consulted [...] and time ordered]: 08/04/23 @ 1430 08/02/23 6299 <Electronically signed by Andrei tejeda> Date _ Andrei Coyne 08/02/231939 <Electronically signed by Holly Echeverria MD> Cosigner Signature (if applicable): Date Holly Echeverria MD CC: ~ Signed [facility] Work Phone: [phone]) 165-930709-14-2023 Progress note Author Holly [facility] August 02, 2023 6:47pm Note Date/Time August 02, 2023 6:47pm [facility] Medical Records Department [address] [place] [address] Progress Note - Hospitalist 08/02/23 184 MR#: [id number] Acct: [id number] Name: TODD DELONG MONI Rep #:[id number] : 1950 72 From: Holly Echeverria MD PCP: Dr. Gerardo García MD Status:ADM I N Location: [place] [address] Hospitalist Note Reviewed patient's CT scan and discussed with her urologist Dr. Strickland, will continue current management and place consult for patient to be seen tomorrow. 08/02/231846 <Electronically signed by Holly Echeverria MD> Cosigner Signature (if applicable): CC: ~ Signed [facility] Work Phone: [phone] History and physical note Author Holly Echeverria [facility] August 02, 2023 4:18pm Note Date/Time August 02, 2023 4:02pm [facility] Medical Records Department [address] [place] [address] H&P Exam - Hospitalist 08/02/23 1549 MR#: [id number] Acct: [id number] Name: TODD DELONG MONI Rep #:[id number] : 1950 72 From: Holly Echeverria MD PCP: Dr. Gerardo aGrcía MD Status:ADM I N Location: [place] [id number] HPI - General General Date of Admission: 08/02/23 Date of Service: 08/02/23 Chief Complaint: Generalized weakness HPI Narrative TODD DELONG, is a 72 F with history of cervical cancer, CKD, bilateral hydronephrosis with chronic ureteral stents, hypertension, GERD who presented [facility] 08/02/2023 with worsening generalized malaise and [...] no other specific complaints at this time. [facility] Medical History (Updated 08/02/23 @ 16:17 by [...] Severe Shortness Verified 06/08/23 09:50 of breath Qcfjtsh-KSX-HcO Reductase Allergy Anaphylaxis Verified 06/08/23 09:50 Inhibitor [...] physical activity do you participate in: walking saurabh/protestant: Non-Gnosticism/Independent seatbelt use: always do you feel safe [...] (Auto) 74.9 H, Lymph % (Auto) 16.0 L,[place] % (Auto) 7.9, Eos % (Auto) 0.1, [...] Clarity Cloudy, Urine pH 6.0, Ur Specific [place] 1.010, Urine Protein 100 H, Urine Glucose [...] documentation, 76minutes Charges/Coding Visit Charges Inpatient E&M: 31394 Init Hosp L3 08/02/23 1618 <Electronically signed by Holly Echeverria MD> Cosigner Signature (if applicable): CC: Dr. Holly Echeverria MD; Dr. Gerardo García MD~ Signed [facility] Work Phone: [phone] 675-769109-14-2023 Discharge summary Author Brian Mckee [facility] August 02, 2023 3:01pm Note Date/Time August 02, 2023 12:17pm [facility] Medical Records Department [address] [place] [address] Emergency Department Summary 08/02/23 MR#: [id number] Acct: [id number] Name: TODD DELONG Rep #:[id number] : 1950 72 From: Brian Avalos PCP: Dr. Gerardo García MD Status:REG E R Location: ED HPI History of Present Illness Chief Complaint: Fever PFSH PFSH Medical History Acute diarrhea LULY [...] Severe Shortness Verified 06/08/23 09:50 of breath Hvnrtbg-UWB-LeT Reductase Allergy Anaphylaxis Verified 06/08/23 09:50 Inhibitor [...] physical activity do you participate in: walking saurabh/protestant: Non-Gnosticism/Independent seatbelt use: always do you feel safe [...] evidence of hepatobiliary obstruction COVID is negative [facility] Narrative: Patient was initially febrile, tachycardic, tachypneic [...] on CKD 6. UTI Dispo: admit to [facility] Lab Data Attestation: I reviewed the [...] 74.9 H Lymph % (Auto) 16.0 L [place] % (Auto) 7.9 Eos % (Auto) 0.1 [...] your Primary Care Provider. Call [facility] ([phone]) or report to the closest Emergency Room. Call 911 if necessary. 08/02/23 1501 <Electronically signed by Brian Mckee DO> Cosigner Signature (if applicable): CC: Dr. Gerardo García MD ~ Signed [facility] Work Phone: [phone]) 586-324001-11-2022 Chief complaint+Reason for visit Narrative * Chief [...] (severe) Chronic renal failure, stage 4 (severe) [facility] Work Phone: [phone] 533-986105-01-2020 Evaluation note* Diagnosis Onset Date Resolution Status Chronic renal failure, stage 4 (severe) chronic Status post placement of implantable loop recorder March chronic Near syncope resolved Chronic renal failure, stage 4 (severe) chronic Chronic renal failure, stage 4 (severe) chronic Chronic renal failure, stage 4 (severe) chronic Chronic renal failure, stage 4 (severe) chronic Chronic renal failure, stage 4 (severe) chronic [facility] Work Phone: [phone]) 303-435510-12-2015 History of Past illness Narrative* Problem Noted Date Diagnosed Date Resolved Date Pseudophakia, left eye 08/30/201509/27 Lens replaced by other means 08/12/2015 09/27/2015 documented as of this encounter (statuses as of 10/23/2023) [address] History of Past illness Narrative* Problem Noted Date Diagnosed Date Resolved Date Pseudophakia, left eye 08/30/201509/27 Lens replaced by other means 08/12/2015 09/27/2015 documented as of this encounter (statuses as of 12/21/2023) [address]2015 History of Past illness Narrative* Problem Noted Date Diagnosed Date Resolved Date Pseudophakia, left eye 08/30/201509/27 Lens replaced by other means 08/12/2015 09/27/2015 documented as of this encounter (statuses as of 12/21/2023) [address]12-2015 History of Past illness Narrative* Problem Noted Date Diagnosed Date Resolved Date Pseudophakia, left eye 08/30/201509/27 Lens replaced by other means 08/12/2015 09/27/2015 documented as of this encounter (statuses as of 12/24/2023) [address]2015 History of Past illness Narrative* Problem Noted Date Diagnosed Date Resolved Date Pseudophakia, left eye 08/30/201509/27 Lens replaced by other means 08/12/2015 09/27/2015 documented as of this encounter (statuses as of 12/25/2023) [address]-2015 History of Past illness Narrative* Problem Noted Date Diagnosed Date Resolved Date Pseudophakia, left eye 08/30/201509/27 Lens replaced by other means 08/12/2015 09/27/2015 documented as of this encounter (statuses as of 12/25/2023) [address]2015 History of Past illness Narrative* Problem Noted Date Diagnosed Date Resolved Date Pseudophakia, left eye 08/30/201509/27 Lens replaced by other means 08/12/2015 09/27/2015 documented as of this encounter (statuses as of 12/28/2023) [address]2015 History of Past illness Narrative* Problem Noted Date Diagnosed Date Resolved Date Pseudophakia, left eye 08/30/201509/27 Lens replaced by other means 08/12/2015 09/27/2015 documented as of this encounter (statuses as of 01/02/2024) [address]2015 History of Past illness Narrative* Problem Noted Date Diagnosed Date Resolved Date Pseudophakia, left eye 08/30/201509/27 Lens replaced by other means 08/12/2015 09/27/2015 documented as of this encounter (statuses as of 01/03/2024) [address]2015 History of Past illness Narrative* Problem Noted Date Diagnosed Date Resolved Date Pseudophakia, left eye 08/30/201509/27 Lens replaced by other means 08/12/2015 09/27/2015 documented as of this encounter (statuses as of 01/10/2024) [address]2015 History of Past illness Narrative* Problem Noted Date Diagnosed Date Resolved Date Pseudophakia, left eye 08/30/201509/27 Lens replaced by other means 08/12/2015 09/27/2015 documented as of this encounter (statuses as of 02/09/2024) [address]2015 History of Past illness Narrative* Problem Noted Date Diagnosed Date Resolved Date Pseudophakia, left eye 08/30/201509/27 Lens replaced by other means 08/12/2015 09/27/2015 documented as of this encounter (statuses as of 02/11/2024) [address]2015 History of Past illness Narrative* Problem Noted Date Diagnosed Date Resolved Date Pseudophakia, left eye 08/30/201509/27 Lens replaced by other means 08/12/2015 09/27/2015 documented as of this encounter (statuses as of 02/19/2024) [address]2015 History of Past illness Narrative* Problem Noted Date Diagnosed Date Resolved Date Pseudophakia, left eye 08/30/201509/27 Lens replaced by other means 08/12/2015 09/27/2015 documented as of this encounter (statuses as of 03/04/2024) [facility] Diagnosis Onset Date Resolution Status Chronic renal failure, stage 4 (severe) chronic Chronic renal failure, stage 4 (severe) chronic Chronic renal failure, stage 4 (severe) chronic Chronic renal failure, stage 4 (severe) chronic Chronic renal failure, stage 4 (severe) chronic [facility] Work Phone: Evaluation note* Diagnosis Onset Date Resolution Status Chronic renal failure, stage 4 (severe) chronic Chronic renal failure, stage 4 (severe) chronic Chronic renal failure, stage 4 (severe) chronic [facility] Work Phone: Evaluation note* Diagnosis Onset Date Resolution Status Chronic renal failure, stage 4 (severe) chronic Abscess of right thigh acute Lymphocytosis chronic [facility] Work Phone: Evaluation note* Diagnosis Onset Date Resolution Status Chronic renal failure, stage 4 (severe) chronic Abscess of right thigh acute Lymphocytosis chronic Acute UTI acute Sepsis acute Tachycardia acute Chronic renal insufficiency [facility] Work Phone: Evaluation note* Diagnosis Onset Date Resolution Status Lymphocytosis chronic Acute UTI acute Sepsis acute Chronic renal insufficiency resolved Tachycardia resolved Chronic renal failure, stage 4 (severe) [facility] Work Phone: Evaluation note* Diagnosis Onset Date Resolution Status Acute UTI acute Sepsis acute Chronic renal insufficiency resolved Tachycardia resolved Chronic renal failure, stage 4 (severe) chronic [facility] Work Phone: Evaluation note* Diagnosis Onset Date Resolution Status Chronic renal failure, stage 4 (severe) chronic [facility] Work Phone: Evaluation note* Diagnosis Onset Date Resolution Status Chronic renal failure, stage 4 (severe) chronic Abscess of left knee acute Chronic renal failure, stage 4 (severe) chronic [facility] Work Phone: Evaluation note* Diagnosis Onset Date Resolution Status Abscess of left knee acute Chronic renal failure, stage 4 (severe) chronic [facility] Work Phone: Evaluation note* Diagnosis Onset Date Resolution Status Chronic renal failure, stage 4 (severe) chronic Abscess of forearm acute [facility] Work Phone: Evaluation note* Diagnosis Onset Date Resolution Status Abscess of forearm acute [facility] Work Phone: Evaluation note* Diagnosis Onset Date Resolution Status Abscess of forearm acute LULY (acute kidney injury) ac ruchi Complicated urinary tract infection acute Hydronephrosis acute Acute kidney injury superimposed on CKD chronic Essential hypertension [facility] Work Phone: Evaluation note* Diagnosis Onset Date Resolution Status Complicated urinary tract infection acute Hydronephrosis acute Acute kidney injury superimposed on CKD chronic Essential hypertension [facility] Work Phone: Evaluation note* Diagnosis Onset Date Resolution Status Complicated urinary tract infection acute Hydronephrosis acute Acute kidney injury superimposed on CKD chronic Essential hypertension chron ic Acute dehydration acute Diarrhea acute Leukocytosis acute Pyuria acute Acute kidney injury superimp osed on chronic kidney disease [facility] Work Phone: Evaluation note* Diagnosis Onset Date Resolution Status Complicated urinary tract infection acute Hydronephrosis acute Acute kidney injury superimposed on CKD chronic Essential hypertension chron ic Acute dehydration acute Acute UTI acute Complicated urinary tract infection acute Diarrhea acute Leukocytosis acute Pyuria acute Acute kidney injury superimp osed on chronic kidney disease [facility] Work Phone: Evaluation note* Diagnosis Onset Date Resolution Status Hydronephrosis acute Acute kidney injury superimposed on CKD chronic Essential hypertension chron ic Complicated urinary tract infection resolved Acute dehydration resolved Acute kidney injury superimp osed on chronic kidney disease resolved Acute UTI resolved Complicated urinary tract infection resolved Diarrhea resolved Leukocytosis resolved Pyuria resolved [facility] Work Phone: Evaluation note* Diagnosis Onset Date [...] Leukocytosis acute Sepsis acute Chronic kidney disease [facility] Work Phone: Evaluation note* Diagnosis LULY (acute kidney injury) (HCC)- Primary Acute kidney failure, unspecified Bilateral hydronephrosis Hydronephrosis Recurrent UTI Urinary tract infection, site not specified Hydronephrosis, unspecified hydronephrosis type documented in this encounter [facility] note* Diagnosis Onset Date Resolution Status Acute UTI resolved [facility] Work Phone: Evaluation note* Diagnosis Bilateral hydronephrosis- Primary [facility]ph[facility] Onset Date Resolution Status Acute UTI resolved Bilateral hydronephrosis acu te Complicated urinary tract infection acute Leukocytosis acute Sinus tachycardia acute Chronic renal failure, stage 4 (severe) chronic Essential hypertension chron ic Hyperlipidemia [facility] Work Phone: Evaluation note* Diagnosis Onset Date Resolution Status Acute UTI resolved Bilateral hydronephrosis acu te Complicated urinary tract infection acute Hypokalemia acute Leukocytosis acute Pyelonephritis of right kidney acute Sinus tachycardia acute UTI (urinary tract infection) acute Chronic renal failure, stage 4 (severe) chronic Essential hypertension chron ic Hyperlipidemia [facility] Work Phone: Evaluation note* Diagnosis Bilateral hydronephrosis- Primary Hydronephrosis LULY (acute kidney injury) (HCC) Acute kidney failure, unspecified Hydronephrosis, unspecified hydronephrosis type [facility] Diagnosis Hydronephrosis of left kidney- Primary Hydronephrosis Hydronephrosis, unspecified hydronephrosis type Hydronephrosis, unspecified hydronephrosis type documented [facility] Diagnosis Onset Date Resolution Status Complicated urinary tract infection acute UTI (urinary tract infection) acute Hypokalemia resolved Leukocytosis resolved Sinus tachycardia resolved Chronic kidney disease, stage IV (severe) [facility] Work Phone: Evaluation note* Diagnosis Other hydronephrosis- Primary Hydronephrosis, unspecified hydronephrosis type documented [facility] Diagnosis Bilateral hydronephrosis- Primary Hydronephrosis LULY (acute kidney injury) (HCC) Acute kidney failure, unspecified Recurrent UTI Urinary tract infection, site not specified Hydronephrosis, unspecified hydronephrosis type documented [facility] Diagnosis Hydronephrosis with ureteral stricture, not elsewhere classified- Primary Other hydronephrosis [facility]* Diagnosis Other hydronephrosis- Primary Other hydronephrosis [facility] Diagnosis Hydronephrosis of left kidney- Primary Hydronephrosis Pyelonephritis Pyelonephritis, unspecified Hydronephrosis with ureteral stricture, 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) Urinary complications Pyelonephritis Pyelonephritis, unspecified Nephrostomy tube displaced (HCC) Urinary complications Hydronephrosis, unspecified hydronephrosis type [N13.30]- Primary Hydronephrosis, unspecified hydronephrosis type documented in this encounter [facility] note* Diagnosis Hydronephrosis of left kidney- Primary Hydronephrosis Pyelonephritis Pyelonephritis, unspecified Hydronephrosis with ureteral stricture, 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) Urinary complications Pyelonephritis Pyelonephritis, unspecified Nephrostomy tube displaced (HCC) Urinary complications Sepsis secondary to UTI (HCC) (HCC)- Primary Urinary tract infection, site not specified Hydronephrosis, unspecified hydronephrosis type documented in this encounter [facility] note* Diagnosis Hydronephrosis of left kidney- Primary Hydronephrosis Pyelonephritis Pyelonephritis, unspecified Hydronephrosis with ureteral stricture, 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) Urinary complications Pyelonephritis Pyelonephritis, unspecified Nephrostomy tube displaced (HCC) Urinary complications Sepsis secondary to UTI (HCC) (HCC)- Primary Urinary tract infection, site not specified Hydronephrosis, unspecified hydronephrosis type documented in this encounter [facility] note* Diagnosis Hydronephrosis of left kidney- Primary Hydronephrosis Pyelonephritis Pyelonephritis, unspecified Hydronephrosis with ureteral stricture, 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) Urinary complications Pyelonephritis Pyelonephritis, unspecified Nephrostomy tube displaced (HCC) Urinary complications Nephrostomy tube bleed (HCC)- Primary Urinary complications Hydronephrosis, unspecified hydronephrosis type documented in this encounter [facility] note* Diagnosis Hydronephrosis of left kidney- Primary Hydronephrosis Pyelonephritis Pyelonephritis, unspecified Hydronephrosis with ureteral stricture, 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) Urinary complications Pyelonephritis Pyelonephritis, unspecified Nephrostomy tube displaced (HCC) Urinary complications Nephrostomy tube bleed (HCC) Urinary complications Hydronephrosis, unspecified hydronephrosis type documented in this encounter [facility] noteNo assessment information availableWDayton Osteopathic Hospital Work Phone: Evaluation note* Diagnosis Hydronephrosis of left kidney- Primary Hydronephrosis Pyelonephritis Pyelonephritis, unspecified Hydronephrosis with ureteral stricture, not elsewhere classified Nephrostomy tube displaced Urinary complications Pyelonephritis Pyelonephritis, unspecified Nephrostomy tube displaced Urinary complications Hydronephrosis, unspecified hydronephrosis type- Primary Hydronephrosis, unspecified hydronephrosis type Hydronephrosis, unspecified hydronephrosis type documented in this encounter [facility] Discharge instructions Additional Instructions Implant Used?: [facility] Work Phone: Patient's home Plan of care [...] ordered by Physician. [facility] Visit Details [...] ordered by Physician. documented in this encounter [facility]'s home Plan of care note* Visit [...] ordered by Physician. documented in this encounter [facility]'s home Plan of care note* Visit [...] Physician. documented in this encounter [facility] for referral (narrative)No reason for referral information availableWDayton Osteopathic Hospital Work Phone: Reason for visit Narrative* Injectable (Routine) - Authorized Specialty Diagnoses / Procedures Referred By Tessie raphael Referred To Contact [facility]EMON INFUSION Diagnoses Unspecified hydronephrosis PICC Care Procedures INJECTION, LIDOCAINE HYDROCHLORIDE INJECTION [facility] [address] [facility] [address] [place] [address] Infusion Center [address] [facility] [place] [place] [address] Phone: tel: fax: Referral ID Status Reason Start Date Expiration Date V isits Requested Visits Authorized [id number] Authorized 01/23/2025 11/18/2025 99 99 [facility] for visit Narrative* Diagnostic Procedure Only (Routine) - Closed Specialty Diagnoses / Procedures Referred By Tessie raphael Referred To Contact XR IMAGING Diagnoses Nephrostomy tube bleed (HCC) Procedures XR ABDOMEN 1V SUPINE RADIOLOGIC EXAM ABDOMEN 1 VIEW Corina Ruffin, HAZARDOUS MATERIALS DRIVER.ICE RINK ATTENDANT [address] [place] [address] Phone: tel: fax: [place] [phone] Referral ID Status Reason Start Date Expiration Date V isits Requested Visits Authorized [id number] Closed Auto-Generate d Referral 01/27/2025 02/26/2026 1 1 [facility] Summary Purpose Family History No [...] Will No December 05 4:45pm Power of Encephalographer No December 05, 2021 4:45pm Advance Directive Response Recorded Date/ Time Advance Directives No March 29 0 12:24pm Living Will No July 19 10:13am Power of Encephalographer No July 19 022 10:13am Advance Directive Response Recorded Date/ Time Advance Directives No March 29 0 12:24pm Living Will No July 29, 2022 4:47pm Power of Encephalographer No July 4:47pm Advance Directive Response Recorded Date/ Time Advance Directives No March 29 0 11:24am Living Will No July 29, 2022 3:47pm Power of Encephalographer No July 3:47pm Advance Directive Response Recorded Date/ Time Advance Directives No March 29 0 11:24am Living Will No January 17, 2023 10:13am Power of Encephalographer No January 17 3 10:13am Advance Directive Response Recorded Date/ Time Advance Directives No March 29 0 12:24pm Living Will No January 17, 2023 11:13am Power of Encephalographer No January 17 3 11:13am Advance Directive Response Recorded Date/ Time Advance Directives No March 29 0 12:24pm Living Will No June 01, 2023 9:26am Power of Encephalographer No June 01 3 9:26am Advance Directive Response Recorded Date/ Time Advance Directives No March 29 0 12:24pm Living Will No August 02, 2023 4:23pm Power of Encephalographer No July 4:23pm Advance Directive Response Recorded Date/ Time Advance Directives No March 29 0 12:24pm Living Will No September 19 9:35am Power of Encephalographer No September 19, 2023 9:35am Advance Directive Response Recorded Date/ Time Advance Directives No March 29 0 12:24pm Living Will No September 19 2:40pm Power of Encephalographer No September 19, 2023 2:40pm Advance Directive Response Recorded Date/ Time Advance Directives No March 29 0 11:24am Living Will No September 19 1:40pm Power of Encephalographer No September 19, 2023 1:40pm Advance Directive Response Recorded Date/ Time Advance Directives No March 29 0 11:24am Living Will No October 09, 2 023 2:28pm Power of Encephalographer No October 09, 2023 2:28pm Latest Code Status on File Code Status Date Activated Date Inactivated Comments Full Code 10/10/2023 12:13 AM 10/12/2023 4:32 PM Question Answer Comments Full Code Order Discussed With: Patient Advance Directive Response Recorded Date/ Time Advance Directives No March 29 0 11:24am Living Will No November 06, 2 023 11:46am Power of Encephalographer No November 06, 2023 11:46am Advance Directive Response Recorded Date/ Time Advance Directives No March 29 0 11:24am Living Will No November 10, 2 023 8:11pm Power of Encephalographer No November 10, 2023 8:11pm Advance Directive Response Recorded Date/ Time Advance Directives No March 29 0 11:24am Living Will No November 10, 2 023 11:26pm Power of Encephalographer No November 10, 2023 11:26pm Latest Code [...] March 29 0 12:24pm Living Will No November 16, 2 023 5:27pm Power of Encephalographer No November 16, 2023 5:27pm Date Activated Date Inactivated Comments 11/26/2023 11:57 AM 01/01/2024 10:58 AM Date Activated Date Inactivated Comments 11/17/2023 2:20 PM 11/24/2023 10:12 PM Date Activated Date Inactivated Comments 10/10/2023 12:13 AM 10/12/2023 4:32 PM Advance Directive Response Recorded Date/ Time Advance Directives No March 29 12:24pm Living Will No February 14, 2024 5:44pm Power of Encephalographer No February 13 5:44pm Advance Directive Response Recorded Date/ Time Advance Directives No March 29 12:24pm Living Will No February 14, 2024 8:45pm Power of Encephalographer No February 13 8:45pm Date Activated Date [...] UTI COMPLICATED UTI NEED ORDER FROM DR RICKY UTI Urinary tract infection Urinary tract infection [...] section and content) DATE CREATED AUTHOR 11/10/2018 [facility] DATE CREATED AUTHOR AUTHOR'S ORGANIZ ATION 12/22/2023 [facility] DATE CREATED AUTHOR AUTHOR'S ORGANIZ ATION 01/02/2024 [facility] DATE CREATED AUTHOR AUTHOR'S ORGANIZ ATION 09/02/2025 [facility] DATE CREATED AUTHOR AUTHOR'S ORGANIZ ATION 09/21/2025 [facility] Goals (unrecognized section and content) Goals may [...] MD Other Provider Active Dr. John Light DO Attending Provider, Other Pro vider Active Dr. Rafa Lofton DO Other Provider Active Dr. Ky Goddard MD Other Provider Active Team Status: Inactive Member Role Status Dates Dr. Gerardo García MD Primary Care Provider Active Dr. Brian Mckee DO Emergency Provider Active Dr. Holly Echeverria MD Admit Provider, Other Provider A ctive Dr. Joshua Strickland MD Other Provider Active Dr. John Light DO Attending Provider Active Dr. Rafa Lofton [...] Dr. Andres Maurer DO Admit Provider, Attending Andrew ponce Active Team Status: Active Member Role Status [...] Rafa Lofton DO Attending Provider Active Dr. Alviia Mcrae MD Other Provider Active Team Status: Active Member Role Status Dates Dr. Gerardo García MD Primary Care Provider Active Dr. Kassy Mitchell MD Attending Provider Active Team Status: Inactive Member Role Status Dates Dr. Gerardo García MD Primary Care Provider Active Dr. Carlene Bower MD Emergency Provider Active Kitchen Lead Relationship Specialty Start Date End Date Gerardo García Chi [facility] TULIOMARY DIAZ [address] [address] PCP - General Gerontology 10/22/14 Luz Maria Matthews MD [address] [place] [address] Referring Gastroenterology 07/25/19 Team Status: Inactive Member Role Status Dates Dr. Gerardo García MD Primary Care Provider Active Dr. Carlene Bower MD Attending Provider, Emergency Provider Active Team Status: Inactive Member Role Status Dates Dr. Gerardo García MD Primary Care Provider Active Dr. Luz Maria Matthews DO Attending Provider Active Team Status: Inactive Member Role Status Dates Dr. Gerardo Gracía MD Primary Care Provider Active Dr. Rafa [...] Dr. Rafa Lofton DO Attending Provider Active Kitchen Lead Relationship Specialty Start Date End Date Gerardo García Chi [address] [place] [address] PCP - General Gerontology 10/22/14 José Manuel Murrell MD [address] [place] [address] Referring 11/23/23 José Manuel Murrell MD [address] [place] [address] Home Care Provider 11/23/23 Jin Antonio MD [address] [place] [address] Consulting Urology 12/04/23 Kitchen Lead Relationship Specialty Start Date End Date Gerardo García Chi [address] [facility] [address] [place] [address] PCP - General Gerontology 10/22/14 José Manuel Murrell MD [address] [place] [address] Referring 11/23/23 José Manuel Murrell MD [address] [place] [address] Home Care Provider 11/23/23 Jin Antonio MD [address] [place] [address] Consulting Urology 12/04/23 Kitchen Lead Relationship Specialty Start Date End Date Gerardo García Chi [address] [facility] [address] [place] [address] PCP - General Gerontology 10/22/14 José Manuel Murrell MD [address] [place] [address] Referring 11/23/23 José Manuel Murrell MD [address] [place] [address] Home Care Provider 11/23/23 Jin Antonio MD [address] [place] [address] Consulting Urology 12/21/23 Kitchen Lead Relationship Specialty Start Date End Date Gerardo García Chi [address] [facility] [address] [place] [address] PCP - General Gerontology 10/22/14 José Manuel Murrell MD [address] [place] [address] Referring 11/23/23 José Manuel Murrell MD [address] [place] [address] Home Care Provider 11/23/23 Jin Antonio MD [address] [place] [id number] Consulting Urology 12/21/23 Kitchen Lead Relationship Specialty Start Date End Date Gerardo García Chi [address] [facility] [address] [place] [address] PCP - General Gerontology 10/22/14 José Manuel Murrell MD [address] [place] [address] Referring 11/23/23 José Manuel Murrell MD [address] [place] [address] Home Care Provider 11/23/23 Jin Antonio MD [address] [place] [address] Consulting Urology 12/21/23 Kitchen Lead Relationship Specialty Start Date End Date Gerardo García Chi [address] [address] [place] [address] PCP - General Gerontology 10/22/14 José Manuel Murrell MD [address] [place] [address] Referring 11/23/23 José Manuel Murrell MD [address] [place] [address] Home Care Provider 11/23/23 Jin Antonio MD [address] [place] [address], [place] [address] Consulting Urology 12/21/23 Kitchen Lead Relationship Specialty Start Date End Date Gerardo García Chi [address] [place] [address] PCP - General Gerontology 10/22/14 José Manuel Murrell MD [address] [place] [address] Referring 11/23/23 José Manuel Murrell MD [address] [place] [address] Home Care Provider 11/23/23 Jin Antonio MD [address] [place] [address], [place] [address] Consulting Urology 12/21/23 Kitchen Lead Relationship Specialty Start Date End Date Gerardo García Chi [address] [facility] [address] [place] [address] PCP - General Gerontology 10/22/14 José Manuel Murrell MD [address] [place] [address] Referring 11/23/23 José Manuel Murrell MD [address] [place] [address] Home Care Provider 11/23/23 Jin Antonio MD [address] [place] [address] [address] Consulting Urology 12/21/23 Kitchen Lead Relationship Specialty Start Date End Date Gerardo García Chi [address] [address] [place] [address] PCP - General Gerontology 10/22/14 José Manuel Murrell MD [address] [place] [address] Referring 11/23/23 José Manuel Murrell MD [address] [place] [address] Home Care Provider 11/23/23 Jin Antonio MD [address] [facility] [place] [address] Consulting Urology 12/21/23 Kitchen Lead Relationship Specialty Start Date End Date Gerardo García Chi [address] [address] [place] [address] PCP - General Gerontology 10/22/14 José Manuel Murrell MD [address] [place] [address] Referring 11/23/23 José Manuel Murrell MD [address] [place] [address] Home Care Provider 11/23/23 Jin Antonio MD [address] [place] [address] Consulting Urology 12/21/23 Team Status: Inactive Member Role Status Dates Dr. Gerardo García MD Primary Care Provider Active Dr. Brian Mckee DO Attending Provide r, Referring Provider, Emergency Provider Active Kitchen Lead Relationship Specialty Start Date End Date Gerardo García Chi [address] [address] [place] [address] PCP - General Gerontology 10/22/14 José Manuel Murrell MD [address] [place] [address] Referring 11/23/23 José Manuel Murrell MD [address] [place] [address] Home Care Provider 11/23/23 Jin Antonio MD [address] [place] [place] [address] Consulting Urology 12/21/23 Kitchen Lead Relationship Specialty Start Date End Date Gerardo García Chi [address] [address] [place], [place] [address] PCP - General Gerontology 10/22/14 José Manuel Murrell MD [address] [facility] [place], [place] [phone] Referring 11/23/23 José Manuel Murrell MD [address] [place], [place] 1622408 Home Care Provider 11/23/23 Jin Antonio MD [address] [facility] [place], [place] [id number] Consulting Urology 12/21/23 Team Status: Active Member [...] Dr. Julianna Matthews DO Attending Provider Active Kitchen Lead Relationship Specialty Start Date End Date Gerardo García Chi [address] [facility] [address] [place] [address] PCP - General Gerontology 10/22/14 José Manuel Murrell MD [address] [facility] [place] [address] Referring 11/23/23 José Manuel Murrell MD [address] [place] [address] Home Care Provider 11/23/23 Jin Antonio MD [address] [place] [address] Consulting Urology 12/21/23 Kitchen Lead Relationship Specialty Start Date End Date Gerardo García [address] [facility] [address] [place] [address] PCP - General Gerontology 10/22/14 José Manuel Murrell MD [address] [place] [address] Referring 11/23/23 José Manuel Murrell MD [address] [place] [address] Home Care Provider 11/23/23 Jin Antonio MD [address] [address] Consulting Urology 12/21/23 Kitchen Lead Relationship Specialty Start Date End Date Gerardo García Chi [address] [facility] [address] [place] [address] PCP - General Gerontology 10/22/14 José Manuel Murrell MD [address] [place] [address] Referring 11/23/23 José Manuel Murrell MD [address] [place] [address] Home Care Provider 11/23/23 Jin Antonio MD [address] [facility] [address] [place], [place] [id number] Consulting Urology 12/21/23 Kitchen Lead Relationship Specialty Start Date End Date Gerardo García Chi [address] [facility] [address] [place], [place] [address] PCP - General Gerontology 10/22/14 José Manuel Murrell MD [address] [place] [address] Referring 11/23/23 José Manuel Murrell MD [address] [place] [address] Home Care Provider 11/23/23 Jin Antonio MD [address] [place] [address] Consulting Urology 12/21/23 Team Status: Active Member Role Status Dates Dr. Gerardo García MD Primary Care Provider Active Dr. Altaf Villa MD Emergency Provider Active Dr. Andres Maurer , Admit Provider, Other Provid er Active Dr. Julianna Matthews , Attending Provider, Other Provide r Active Kitchen Lead Relationship Specialty Start Date End Date Gerardo García Chi [address] [address] [place] [address] PCP - General Gerontology 10/22/14 José Manuel Murrell MD [address] [place] [address] Referring 11/23/23 José Manuel Murrell MD [address] [place] [address] Home Care Provider 11/23/23 Jin Antonio MD [address] [facility] [address] [place] [address] Consulting Urology 12/21/23 Kitchen Lead Relationship Specialty Start Date End Date Gerardo García Chi [address] [place] [address] PCP - General Gerontology 10/22/14 José Manuel Murrell MD [address] [place] [address] Referring 11/23/23 José Manuel Murrell MD [address] [place] [address] Home Care Provider 11/23/23 Jin Antonio MD [address] [address] Consulting Urology 12/21/23 Kitchen Lead Relationship Specialty Start Date End Date Gerardo García Chi [address] [facility] [address] [place] [address] PCP - General Gerontology 10/22/14 José Manuel Murrell MD [address] [place] [address] Referring 11/23/23 José Manuel Murrell MD [address] [place] [address] Home Care Provider 11/23/23 Jin Antonio MD [address] [place], [place] [id number] Consulting Urology 12/21/23 Kitchen Lead Relationship Specialty Start Date End Date Gerardo García [address] [facility] [address] [place], [place] [address] PCP - General Gerontology 10/22/14 José Manuel Murrell MD [address] [place] [address] Referring 11/23/23 José Manuel Murrell MD [address] [place] [address] Home Care Provider 11/23/23 Jin Antonio MD [address] [place], [place] [address]44[address] Consulting Urology 12/21/23 Kitchen Lead Relationship Specialty Start Date End Date eGrardo García Chi [address] [facility] [address] [place] [address] PCP - General Gerontology 10/22/14 José Manuel Murrell MD [address] [place] [address] Referring 11/23/23 José Manuel Murrell MD [address] [place] [address] Home Care Provider 11/23/23 Jin Antonio MD [address] [address] Consulting Urology 12/21/23 Kitchen Lead Relationship Specialty Start Date End Date Gerardo García Chi [address] [place] [address] PCP - General Gerontology 10/22/14 José Manuel Murrell MD [address] [place] [address] Referring 11/23/23 José Manuel Murrell MD [address] [place] [address] Home Care Provider 11/23/23 Jin Antonio MD [address] [address] Consulting Urology 12/21/23 Kitchen Lead Relationship Specialty Start Date End Date Gerardo García Chi [address] [facility] [address] [place] [address] PCP - General Gerontology 10/22/14 José Manuel Murrell MD [address] [place] [address] Referring 11/23/23 José Manuel Murrell MD [address] [place] [address] Home Care Provider 11/23/23 Jin Antonio MD [address] [place] [address] Consulting Urology 12/21/23 Kitchen Lead Relationship Specialty Start Date End Date Gerardo García Chi [address] [place], [place] [address] PCP - General Gerontology 10/22/14 José Manuel Murrell MD [address] [place] [address] Referring 11/23/23 José Manuel Murrell MD [address] [place] [address] Home Care Provider 11/23/23 Jin Antonio MD [address] [place], [place] [address] [address] Consulting Urology 12/21/23 Kitchen Lead Relationship Specialty Start Date End Date Gerardo García Chi [address] [place] [address] PCP - General Gerontology 10/22/14 José Manuel Murrell MD [address] [place] [address] Referring 11/23/23 José Manuel Murrell MD [address] [place] [address] Home Care Provider 11/23/23 Jin Antnoio MD [address] [facility] [place] [address] Consulting Urology 12/21/23 Kitchen Lead Relationship Specialty Start Date End Date Gerardo García Chi [address] [place] [address] PCP - General Gerontology 10/22/14 José Manuel Murrell MD [address] [place] [address] Referring 11/23/23 José Manuel Murrell MD [address] [place] [address] Home Care Provider 11/23/23 Jin Antonio MD [address] [address] Consulting Urology 12/21/23 Kitchen Lead Relationship Specialty Start Date End Date RickyGerardo guerra Chi [address] [place] [address] PCP - General Gerontology 10/22/14 José Manuel Murrell MD [address] [place] [address] Referring 11/23/23 José Manuel Murrell MD [address] [place] [address] Home Care Provider 11/23/23 Jin Antonio MD [address] [place] [address] Consulting Urology 12/21/23 Kitchen Lead Relationship Specialty Start Date End Date Gerardo García Chi [address] [place] [address] PCP - General Gerontology 10/22/14 José Manuel Murrell MD [address] [place] [address] Referring 11/23/23 José Manuel Murrell MD [address] [place] [address] Home Care Provider 11/23/23 Jin Antonio MD [address] [place], [place] [address], [place] [address] Consulting Urology 12/21/23 Kitchen Lead Relationship Specialty Start Date End Date Gerardo García Chi [address] [address] PCP - General Gerontology 10/22/14 José Manuel Murrell MD [address] [place] [address] Referring 11/23/23 José Manuel Murrell MD [address] [place] [address] Home Care Provider 11/23/23 Jin Antonio MD [address] [place], [place] [address], [place] [address] Consulting Urology 12/21/23 Team Status: Active Member [...] April 15, 2025 End: April 15, 2025 Kitchen Lead Relationship Specialty Start Date End Date Gerardo García Chi [address] [place] [address] PCP - General Gerontology 10/22/14 José Manuel Murrell MD [address] [place] [address] Referring 11/23/23 José Manuel Murrell MD [address] [place] [address] Home Care Provider 11/23/23 Jin Antonio MD [address] [place] [address] Consulting Urology 12/21/23 Kitchen Lead Relationship Specialty Start Date End Date Gerardo García Chi [address] [place] [address] PCP - General Gerontology 10/22/14 José Manuel Murrell MD [address] [place] [address] Referring 11/23/23 José Manuel Murrell MD [address] [place] [address] Home Care Provider 11/23/23 Jin Antonio MD [address] [facility] [place] [address] Consulting Urology 12/21/23 Team Status: Active Member [...] or prosecute any alcohol or drug abuse patient.[facility]In the event this information is protected by the Federal Confidentiality of Alcohol and Drug Abuse Patient Records regulations: The Federal rules restrict any use of the information to criminally investigate or prosecute any alcohol or drug abuse patient.[facility] HospitalIn the event this information is protected by the Federal Confidentiality of Alcohol and Drug Abuse Patient Records regulations: The Federal rules restrict any use of the information to criminally investigate or prosecute any alcohol or drug abuse patient.[facility] HospitalIn the event this information is protected by the Federal Confidentiality of Alcohol and Drug Abuse Patient Records regulations: The Federal rules restrict any use of the information to criminally investigate or prosecute any alcohol or drug abuse patient.[facility] HospitalIn the event this information is protected by the Federal Confidentiality of Alcohol and Drug Abuse Patient Records regulations: The Federal rules restrict any use of the information to criminally investigate or prosecute any alcohol or drug abuse patient.[facility] HospitalIn the event this information is protected by the Federal Confidentiality of Alcohol and Drug Abuse Patient Records regulations: The Federal rules restrict any use of the information to criminally investigate or prosecute any alcohol or drug abuse patient.[facility] HospitalIn the event this information is protected by the Federal Confidentiality of Alcohol and Drug Abuse Patient Records regulations: The Federal rules restrict any use of the information to criminally investigate or prosecute any alcohol or drug abuse patient.[facility] HospitalIn the event this information is protected by the Federal Confidentiality of Alcohol and Drug Abuse Patient Records regulations: The Federal rules restrict any use of the information to criminally investigate or prosecute any alcohol or drug abuse patient.[facility] HospitalIn the event this information is protected by the Federal Confidentiality of Alcohol and Drug Abuse Patient Records regulations: The Federal rules restrict any use of the information to criminally investigate or prosecute any alcohol or drug abuse patient.[facility] HospitalIn the event this information is protected by the Federal Confidentiality of Alcohol and Drug Abuse Patient Records regulations: The Federal rules restrict any use of the information to criminally investigate or prosecute any alcohol or drug abuse patient.[facility] HospitalIn the event this information is protected by the Federal Confidentiality of Alcohol and Drug Abuse Patient Records regulations: The Federal rules restrict any use of the information to criminally investigate or prosecute any alcohol or drug abuse patient.[facility] HospitalIn the event this information is protected by the Federal Confidentiality of Alcohol and Drug Abuse Patient Records regulations: The Federal rules restrict any use of the information to criminally investigate or prosecute any alcohol or drug abuse patient.[facility] HospitalIn the event this information is protected by the Federal Confidentiality of Alcohol and Drug Abuse Patient Records regulations: The Federal rules restrict any use of the information to criminally investigate or prosecute any alcohol or drug abuse patient.[facility] HospitalIn the event this information is protected by the Federal Confidentiality of Alcohol and Drug Abuse Patient Records regulations: The Federal rules restrict any use of the information to criminally investigate or prosecute any alcohol or drug abuse patient.[facility] HospitalIn the event this information is protected by the Federal Confidentiality of Alcohol and Drug Abuse Patient Records regulations: The Federal rules restrict any use of the information to criminally investigate or prosecute any alcohol or drug abuse patient.[facility] HospitalIn the event this information is protected by the Federal Confidentiality of Alcohol and Drug Abuse Patient Records regulations: The Federal rules restrict any use of the information to criminally investigate or prosecute any alcohol or drug abuse patient.[facility] HospitalIn the event this information is protected by the Federal Confidentiality of Alcohol and Drug Abuse Patient Records regulations: The Federal rules restrict any use of the information to criminally investigate or prosecute any alcohol or drug abuse patient.[facility] the event this information is protected by the Federal Confidentiality of Alcohol and Drug Abuse Patient Records regulations: The Federal rules restrict any use of the information to criminally investigate or prosecute any alcohol or drug abuse patient.[facility]In the event this information is protected by the Federal Confidentiality of Alcohol and Drug Abuse Patient Records regulations: The Federal rules restrict any use of the information to criminally investigate or prosecute any alcohol or drug abuse patient.[facility] HospitalIn the event this information is protected by the Federal Confidentiality of Alcohol and Drug Abuse Patient Records regulations: The Federal rules restrict any use of the information to criminally investigate or prosecute any alcohol or drug abuse patient.[facility] HospitalIn the event this information is protected by the Federal Confidentiality of Alcohol and Drug Abuse Patient Records regulations: The Federal rules restrict any use of the information to criminally investigate or prosecute any alcohol or drug abuse patient.[facility] HospitalIn the event this information is protected by the Federal Confidentiality of Alcohol and Drug Abuse Patient Records regulations: The Federal rules restrict any use of the information to criminally investigate or prosecute any alcohol or drug abuse patient.[facility] HospitalIn the event this information is protected by the Federal Confidentiality of Alcohol and Drug Abuse Patient Records regulations: The Federal rules restrict any use of the information to criminally investigate or prosecute any alcohol or drug abuse patient.[facility]In the event this information is protected by the Federal Confidentiality of Alcohol and Drug Abuse Patient Records regulations: The Federal rules restrict any use of the information to criminally investigate or prosecute any alcohol or drug abuse patient.[facility]In the event this information is protected by the Federal Confidentiality of Alcohol and Drug Abuse Patient Records regulations: The Federal rules restrict any use of the information to criminally investigate or prosecute any alcohol or drug abuse patient.[facility]In the event this information is protected by the Federal Confidentiality of Alcohol and Drug Abuse Patient Records regulations: The Federal rules restrict any use of the information to criminally investigate or prosecute any alcohol or drug abuse patient.[facility] HospitalIn the event this information is protected by the Federal Confidentiality of Alcohol and Drug Abuse Patient Records regulations: The Federal rules restrict any use of the information to criminally investigate or prosecute any alcohol or drug abuse patient.[facility] HospitalIn the event this information is protected by the Federal Confidentiality of Alcohol and Drug Abuse Patient Records regulations: The Federal rules restrict any use of the information to criminally investigate or prosecute any alcohol or drug abuse patient.[facility] HospitalIn the event this information is protected by the Federal Confidentiality of Alcohol and Drug Abuse Patient Records regulations: The Federal rules restrict any use of the information to criminally investigate or prosecute any alcohol or drug abuse patient.[facility] HospitalIn the event this information is protected by the Federal Confidentiality of Alcohol and Drug Abuse Patient Records regulations: The Federal rules restrict any use of the information to criminally investigate or prosecute any alcohol or drug abuse patient.[facility] HospitalIn the event this information is protected by the Federal Confidentiality of Alcohol and Drug Abuse Patient Records regulations: The Federal rules restrict any use of the information to criminally investigate or prosecute any alcohol or drug abuse patient.[facility]In the event this information is protected by the Federal Confidentiality of Alcohol and Drug Abuse Patient Records regulations: The Federal rules restrict any use of the information to criminally investigate or prosecute any alcohol or drug abuse patient.[facility] HospitalIn the event this information is protected by the Federal Confidentiality of Alcohol and Drug Abuse Patient Records regulations: The Federal rules restrict any use of the information to criminally investigate or prosecute any alcohol or drug abuse patient.[facility]In the event this information is protected by the Federal Confidentiality of Alcohol and Drug Abuse Patient Records regulations: The Federal rules restrict any use of the information to criminally investigate or prosecute any alcohol or drug abuse patient.[facility] HospitalIn the event this information is protected by the Federal Confidentiality of Alcohol and Drug Abuse Patient Records regulations: The Federal rules restrict any use of the information to criminally investigate or prosecute any alcohol or drug abuse patient.[facility] HospitalIn the event this information is protected by the Federal Confidentiality of Alcohol and Drug Abuse Patient Records regulations: The Federal rules restrict any use of the information to criminally investigate or prosecute any alcohol or drug abuse patient.[facility]In the event this information is protected by the Federal Confidentiality of Alcohol and Drug Abuse Patient Records regulations: The Federal rules restrict any use of the information to criminally investigate or prosecute any alcohol or drug abuse patient.[facility] HospitalIn the event this information is protected by the Federal Confidentiality of Alcohol and Drug Abuse Patient Records regulations: The Federal rules restrict any use of the information to criminally investigate or prosecute any alcohol or drug abuse patient.[facility] HospitalIn the event this information is protected by the Federal Confidentiality of Alcohol and Drug Abuse Patient Records regulations: The Federal rules restrict any use of the information to criminally investigate or prosecute any alcohol or drug abuse patient.[facility] HospitalIn the event this information is protected by the Federal Confidentiality of Alcohol and Drug Abuse Patient Records regulations: The Federal rules restrict any use of the information to criminally investigate or prosecute any alcohol or drug abuse patient.[facility] HospitalIn the event this information is protected by the Federal Confidentiality of Alcohol and Drug Abuse Patient Records regulations: The Federal rules restrict any use of the information to criminally investigate or prosecute any alcohol or drug abuse patient.[facility] Reason for Visit (unrecogniz ed section and content) Reason Comments Stent Reason Comments Home Care Drainage from right nephrostomy tube site, HTN Specialty Diagnoses / Procedures Referred By Contac t Referred To Contact [facility] Home Care [address] [place] [id number] Referral ID Status Reason Start Date Expiration Date Visits Re quested Visits Authorized [id number] 1 1 Reason Comments Patient Question Reason Comments Follow Up Reason Comments Surgery Reason Comments Post Op Stents placed Reason Comments Appointment Reason Comments Orders Reason Comments Orders Patient Update Specialty Diagnoses / Procedures Referred By Contac t Referred To Contact Diagnoses Hydronephrosis, unspecified hydronephrosis type Procedures PLMT NEPHROSTOMY CATH PRQ NEW ACCESS RS&I PERC PLACEMENT NEPHROSTOMY CATH,INCLUDING DIAGNOSTIC NEPHROSTOGRAM/URETEROGRAM WHEN PERFORMED,IMAGING GUIDANCE AND ALL ASSOCIATED RAD S&I Mr Interventional Radiology [address] [facility] [place] [address] Referral ID Status Reason Start Date Expiration Date Visits Re quested Visits Authorized [id number] 1 1 Specialty Diagnoses / Procedures Referred By Contac t Referred To Contact Diagnoses Hydronephrosis, unspecified hydronephrosis type Procedures EXCHANGE NEPHROSTOMY CATHETER PRQ W/IMG GID RS&I PERC EXCHANGE NEPHROSTOMY CATH, INCLUDING DIAGNOSTIC NEPHROSTOGRAM/URETEROGRAM WHEN PERFORMED,IMAGING GUIDANCE AND ALL ASSOCIATED RAD S&I Mr Interventional Radiology [address] [facility] [place] [address] Referral ID Status Reason Start Date Expiration Date Visits Re quested Visits Authorized [id number] 1 1 Reason Onset Date Comments 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 Set up for L NT reinsertion Referral ID Status Reason Start Date Expiration Date Visits Re quested Visits Authorized [id number] 1 1 Reason Comments Follow Up Hydronephrosis Reason Comments Hydronephrosis Post op stent remova l Reason Comments Guest Relations Agent - Other Nephrostomy tub e supplies Specialty Diagnoses / Procedures Referred By Tessie t Referred To Contact Diagnoses Other hydronephrosis Other hydronephrosis [N13.39] Procedures EXCHANGE NEPHROSTOMY CATHETER PRQ W/IMG GID RS&I PERC EXCHANGE NEPHROSTOMY CATH, INCLUDING DIAGNOSTIC NEPHROSTOGRAM/URETEROGRAM WHEN PERFORMED,IMAGING GUIDANCE AND ALL ASSOCIATED RAD S&I Mr Interventional Radiology [facility] [place] [address] Referral ID Status Reason Start Date Expiration Date Visits Re quested Visits Authorized [id number] 1 1 Reason Comments Hydronephrosis Left neph [...] (XYLOCAINE) SUBCUTANEOUS, X (OR/PROCEDURE) PRN, Starting on Sun01/01/24 at 1307, Until Sun01/02/24 at 0303, Intraprocedure Given 01/01/2024 1:07 PM EST 10 mL Back, Right PRN Active and Recently Administ ered Medications (unrecognized section and content) Medication Order 12/30/2023 12/31/2023 01/01/2024 lidocaine (PF) 10 mg/mL (1 %) injection (XYLOCAINE) SUBCUTANEOUS, X (OR/PROCEDURE) PRN, Starting on Sun01/01/24 at 1307, Until Sun01/02/24 at 0303, Intraprocedure 1307 (Given - Provid er: Jose L Patel MD, - Comment: flank) PRN Medication Order 03/16/2024 03/17/2024 03/18/2024 lidocaine (PF) 10 mg/mL (1 %) injection (XYLOCAINE) (CANCELED) SUBCUTANEOUS, NEEDED, Starting on 03/18/24 at 1546, Until Tu03/18/24 at 1614, Intraprocedure 1546 (Given - Provid er: Rocío Oliveira MD, MD)1557 (Given - Provider: Rocío Oliveira MD, MD) PRN Medication Order 05/11/2024 05/12/2024 05/13/2024 lidocaine (PF) 10 mg/mL (1 %) injection (XYLOCAINE) (CANCELED) SUBCUTANEOUS, NEEDED, Starting on 05/13/24 at 0848, Until Sun05/13/24 at 0905, Intraprocedure [...] (Given - Provid er: Geraldo Campbell MD, ) PRN Medication Order 09/27/2024 09/28/2024 09/29/2024 lidocaine (PF) 10 mg/mL (1 %) injection (XYLOCAINE) (CANCELED) SUBCUTANEOUS, NEEDED, Starting on Sun09/29/24 at 1109, Until Sun09/29/24 at 1129, Intraprocedure 1109 (Given - Provid er: Ghulam Rivera, DO - Comment: lower left and right) [...] BE BASED ON THE PRIMARY CLINICAL RECORDS. [employer] provides no warranty or guarantee of the accuracy or completeness of information in this document.
== END | disposition home or self-care (01) ==
LOC: RAD 17:06
PROVIDERS: PCP Family Medicine Geriatric Medicine; Referring Provider Family Medicine Geriatric Medicine; Visit Provider Family Medicine Geriatric Medicine
DX: R06.2 Wheezing (principal); J98.8 Other specified respiratory disorders
CPT/HCPCS: 71046

== ENCOUNTER → 2025-09-25 | Outpatient (CLI) | payer MEDICARE, SELFPAY ==
--- NOTE | 2025-09-25 09:15 | CT_ITS ---
PROCEDURE: CTA CHEST W/WO CONTRAST N/A REASON FOR EXAM: CHEST PAIN , SHORTNESS OF BREATH TECHNIQUE: Procedure Code: [id number] Modality: CT Procedure: CTA CHEST W/WO CONTRAST Multiplanar Sagittal and Coronal images were obtained. CONTRAST: Isovue 3 7 VOLUME: 98 mL One or more dose reduction techniques were used (e.g., Automated exposure control, adjustment of the mA and/or kV according to patient size, use of iterative reconstruction technique). RADIATION DOSE SUMMARY: CTDlvol: 13.66 mGy DLP: 480.9 mGycm COMPARISON: None. # of known CTs in the past 12 months: 0. # of known Cardiac Nuclear Medicine Studies in the past 12 months: 0. FINDINGS: Thoracic Aorta: Mild ectasia of the ascending aorta without aneurysms. Atherosclerotic calcifications. No dissections. Heart: Moderate cardiomegaly. Atherosclerotic calcifications of the coronary arteries. Pulmonary Vessels: No evidence of pulmonary embolism. Hardware: Unremarkable. Lymph nodes: No lymphadenopathy. Lungs and Airways: Clear. Pleura: No pleural effusion or pneumothorax. Upper Abdomen: No acute findings. Bones: No acute bony abnormalities. CT/CTA Chest W/WO Contrast IMPRESSION: No evidence of pulmonary embolism. Reading [facility]
== END | disposition home or self-care (01) ==
LOC: CT 09:12
PROVIDERS: PCP Family Medicine Geriatric Medicine; Referring Provider Family Medicine Geriatric Medicine; Visit Provider Family Medicine Geriatric Medicine
DX: R07.9 Chest pain, unspecified (principal); R06.02 Shortness of breath
CPT/HCPCS: 71275; Q9967; A4216

== ENCOUNTER → 2025-09-29 | Outpatient (CLI) | payer MEDICARE, SELFPAY ==
--- NOTE | 2025-09-29 08:58 | EKG12_ITS ---
Test Reason : HYPERTENSION Blood Pressure : */* mmHG Vent. Rate : 99 BPM Atrial Rate : 99 BPM P-R Int : 122 ms QRS Dur : 92 ms QT Int : 340 ms P-R-T Axes : 59 37 74 degrees QTcB Int : 436 ms Normal sinus rhythm Normal ECG Confirmed by Lloyd Neves ([id number]), primer expeditor and drier RADHA PHILLIPS ([id number]) on 09/30/2025 5:57:17 AM Referred By: Gerardo García Confirmed By: Lloyd Neves
== END | disposition home or self-care (01) ==
LOC: PSN 08:56
PROVIDERS: PCP Family Medicine Geriatric Medicine; Referring Provider Family Medicine Geriatric Medicine; Visit Provider Family Medicine Geriatric Medicine
DX: I10 Essential (primary) hypertension (principal)
CPT/HCPCS: 93005

== ENCOUNTER → 2025-11-16 | Outpatient (CLI) | payer MEDICARE, SELFPAY ==
--- OUTSIDE RECORDS SUMMARY | 2025-11-16 20:07 | XMS RPT_ITS | CCD ---
Author Organization [facility] Care Team Providers Care Sexer Name Role Phone MARINA MONTANA (YISSEL-C) Unavailable Unavailable MARIOLA PARADA Unavailable Unavailable MAGALY GARÍCA Unavailable Unavailable Dr. Gerardo García Chi Primary [...] Dr. Kassy Mitchell Attending Provider Dr. Lexa Hull Emergency Provider Dr. Sammie Ruiz Admit Provider Dr. Sammie Ruiz Attending Provider Dr. Sammie Ruiz Other Provider Em, Dr. Joshua Yu Other Provider Latisha, Dr. Campos Attending Provider [facility] Cam[facility] Other Provider Unavailable [facility], Dr. Rubio Attending Provider Ricardo, Dr. Rubio Other Provider Dr. Ky Goddard Other Provider Ricky, Dr. Gerardo Rojas Primary Care Provider Ricky, Dr. Gerardo Rojas Referring Provider DAVION Shay Attending Provider Ricky, Dr. Gerardo Rojas Primary Care Provider Ricky, Dr. Gerardo Rojas Referring Provider Dr. Kassy Mitchell Attending Provider Dr. Lexa Hull Emergency Provider Dr. Sammie Ruiz Admit Provider Dr. Sammie Ruiz Attending Provider Dr. Sammie Ruiz Other Provider Em, Dr. Joshua Yu Other Provider Latisha, Dr. Campos Attending Provider Un[facility] Cam[facility] Other Provider Unavailable [facility], Dr. Rubio Attending Provider Ricardo, Dr. [...] Dr. Brian Mckee Emergency Provider Dr. Holly Ehceverria Admit Provider Dr. Holly Echeverria Other Provider Dr. Joshua Strickland Other Provider Dr. Rafa Lofton Attending Provider Dr. Rafa Lofton Other Provider Dr. John Light Attending Provider Dr. John Light Other Provider Dr. Ky Goddard Other Provider Ricky, Dr. Gerardo Rojas Primary Care Provider Dr. Altaf Villa Emergency Provider Dr. Andres Maurer Admit Provider Unavailabl e Dr. Andres Maurre Attending Provider Unavail able Dr. Andres Maurer Other Provider Unavailabl e Dr. Alivia Mcrae Attending Provider Dr. Alivia Mcrae Other Provider [phone] [...] e Clementina, Dr. Alivia Hemphill Attending Provider [phone] Clementina, Dr. Alivia Hemphill Other Provider Ricky, [...] e Clementina, Dr. Alivia Hemphill Attending Provider [phone] Clementina, Dr. Alivia Hemphill Other Provider Ricky, Gerardo Rojas Primary Care Provider Luz Maria Matthews MD Unavailable Dr. South Gutiérrez Emergency Provider Handy CHRISTIAN, José Manuel Unavailable Handy CHRISTIAN, José Manuel Unavailable Jin Antonio MD Unavailable [phone] Jin Antonio MD Unavailable GERARDO GARCÍA [facility] Primary Care Unavailable EDWINA PATEL Referring Unavailable EDWINA PATEL Attending Unavailable EDWINA PATEL Admitting Unavailable Dr. Gerardo García Chi [...] Provider Gerardo García Chi Primary Care Provider [phone] Dr. Gerardo García Chi Primary Care Provider [...] CHRISTIAN, Dr. Gerardo Rojas Primary Care Physician [phone] Ricky CHRISTIAN, Dr. Gerardo Rojas Attending Physician JONA CLARK Admitting Unavailable JONA CLARK Attending Unavailable RICKY, GERARDO [facility] Primary Care Unavailable JIN ANTONIO Attending Unavailable RICKY, GERARDO [facility] Primary Care Unavailable PROVIDER, UNKNOWN Admitting Unavailable PROVIDER, UNKNOWN Attending Unavailable RICKY, GERARDO [facility] Primary Care Unavailable RICKY, GERARDO [facility] Primary Care Unavailable JOHN WEEMS Admitting Unavailable SONAM CERON Attending Unavailable PIYUSH MCMILLAN Unavailable RICKY, GERARDO [facility] Primary Care Unavailable RICKY, GERARDO [facility] Primary Care Unavailable OBI RUFFIN Attending Unavailable RICKY, GERARDO [facility] Primary Care Unavailable LOWE, OBI Referring Unavailable RICKY, GERARDO [facility] Primary Care Unavailable NISHICHEIKH C Admitting Unavailable NISHICHEIKH C Attending Unavailable RICKY, GERARDO [facility] Primary Care Unavailable GHULAM RIVERA Admitting Unavailable GHULAM RIVERA B Attending Unavailable RICKY, GERARDO [facility] Primary Care Unavailable PROVIDER, UNKNOWN Admitting Unavailable PROVIDER, UNKNOWN Attending Unavailable RICKY, GERARDO [facility] Primary Care Unavailable CHEIKH HIGH C Admitting Unavailable NISHICHEIKH C Attending Unavailable RICKY, GERARDO [facility] Primary Care Unavailable JONA CLARK Admitting Unavailable JONA CLARK Attending Unavailable RICKY, GERARDO [facility] Primary Care Unavailable Ricky, Gerardo Chi Attending Unavailable Ricky, Gerardo Chi Primary Care Unavailable Ricky, Gerardo Chi Primary Care Unavailable Ricky, Gerardo Chi Attending Unavailable Ricky, Gerardo Chi Primary Care Unavailable Ricky, Gerardo Chi Referring Unavailable Cristina Ram Attending Unavailable Ricky, Gerardo Chi Referring Unavailable Ricky, Gerardo Chi Primary Care Unavailable Coleen Neves Attending Unavailable Ricky, Gerardo Chi Primary Care Unavailable Ricky, Gerardo Chi Attending Unavailable Ricky, Gerardo Chi Primary Care Unavailable Ricky, Gerardo Chi Attending Unavailable Ricky, Gerardo Chi Primary Care Unavailable Wade, Rajesh Referring Unavailable Wade, Rajesh Attending Unavailable Ricky, Gerardo Chi Primary Care Unavailable Byron, Luz Maria Referring Unavailable Byron, Luz Maria Attending Unavailable Ricky, Gerardo Chi Primary Care Unavailable Ricky, Gerardo Chi Referring Unavailable Ricky, Gerardo Chi Attending Unavailable Byron, Luz Maria Referring Unavailable Byron, Luz Maria Attending Unavailable Ricky, Gerardo Chi Primary Care Unavailable Ricky, Gerardo Chi Primary Care Unavailable Ricky, Gerardo Chi Attending Unavailable Ricky, Gerardo Chi Attending Unavailable Ricky, Gerardo Chi Referring Unavailable Ricky, Gerardo Chi Primary Care Unavailable Ricky, Gerardo Chi Attending Unavailable Ricky, Gerardo Chi Referring Unavailable Ricky, Gerardo Chi Primary Care Unavailable Ricky, Gerardo Chi Referring Unavailable Ricky, Gerardo Chi Attending Unavailable Ricky, Gerardo Chi Primary Care Unavailable Ricky, Gerardo Chi Primary Care Unavailable Ricky, Gerardo Chi Attending Unavailable Ricky, Gerardo Chi Primary Care Unavailable Ricky, Gerardo Chi Attending Unavailable Ricky, Gerardo Chi Primary Care Unavailable Ricky, Gerardo Chi Attending Unavailable Ricky, Gerardo Chi Attending Unavailable Ricky, Gerardo Chi Primary Care Unavailable Allergies Allergy Classification Reported Allergen(s) Allergy Type Date of Onset Reaction(s) Facility Corticosteroids (2 sources) methylPREDNISolone Drug Allergy 01-04-20 15 Other: See Comments, Unknown [facility] HMG-CoA Reductase Inhibitors (statins) (1 source) Pravastatin Drug Allergy 01-04-20 15 Intolerance [facility] Sulfonamides (antibiotic) (1 source) Sulfamethoxazole Drug Allergy 01-04-20 15 Shortness of Breath [facility] (20 sources) Pravastatin; Translations: [PRAVASTATIN] Drug Allergy 01-04-20 15 Intolerance, Anaphylaxis [facility] Rep[facility] (20 sources) predniSONE; Translations: [PREDNISONE] Drug Allergy 01-04-20 15 Unknown [facility] Repository (20 sources) Sulfamethoxazole; Translations: [SULFAMETHOXAZOLE] Drug Allergy 01-04-20 15 Shortness of Breath [facility] Rep[facility] (20 sources) INFLUENZA VIRUS VACCINES; Translations: [INFLUENZA VIRUS VACCINES] Propensity to adverse reactions (disorder) 01-04-20 15 Unknown [facility] Repository (20 sources) Clindamycin Drug Allergy 02-15-20 22 unsure of reaction [facility] Comment on above: She thinks Levaquin or Clindamycin causes trouble breathing & swelling of feet (20 sources) levoFLOXacin Drug Allergy 02-15-20 UNSURE OF REACTION [facility] Comment on above: Pt thinks Levaquin o r Clindamycin cause difficulty breathing & swelling of feet (20 sources) methylPREDNISolone; Translations: [METHYLPREDNISOLONE] Drug Allergy 08-01-20 19 Other: See Comments [facility] (20 sources) Procaine Drug Allergy 02-15-20 NEEDS FOLLOW-UP [facility] Comment on above: Pt doesn't know (20 sources) Trimethoprim Drug Allergy 02-15-20 Shortness of breath [facility] (20 sources) Vdhszbz-Pzf-Zqw Reductase Inhibitor; Translations: [Pecppvs-Qbi-Jkd Reductase Inhibitor] Allergy to substance 02-15-20 Anaphylaxis [facility] (4 sources) novacaine Allergy to substance 12-30-19 Unknown [facility] Work Phone: (20 sources) HMG-CoA reductase inhibitor; Translations: [JNNAAIU-NUM-PAG REDUCTASE INHIBITORS] Drug Allergy 12-07-19 Anaphylaxis [facility] (1 source) Clindamycin Drug Allergy 03-03-20 25 [facility] Repository (1 source) levoFLOXacin Drug Allergy 03-03-20 25 [facility] Repository (1 source) methylPREDNISolone Drug Allergy 03-03-20 [facility] Repository (1 source) Procaine Drug Allergy 03-03-20 25 [facility] Repository (1 source) Trimethoprim Drug Allergy 03-03-20 [facility] Repository Medications Current Medications Medication Drug [...] wheezing albuterol sulfate (VENTOLIN INHALATION) Inhale 1 [place]gut as instructed every 4 hours as needed (wheezing/shortness of breath). 07/12/2015 01/13/2025 Discontinued (Erroneous entry) Start: 07-12-2015 take 1 spray(s) by i nhalation every four hours as needed for wheezing ALBUTEROL SULFATE (VENTOLIN INHALATION) Inhale 1 Montegut as instructed every 4 hours as needed (wheezing/shortness of breath). 07/12/2015 Active Start: 07-12-2015 take 1 spray(s) by i nhalation every four hours as needed for wheezing ALBUTEROL SULFATE (VENTOLIN INHALATION) Inhale 1 Montegut as instructed every 4 hours as needed (wheezing/shortness of breath). 0 07/12/2015 Suspended Start: 07-12-2015 take 1 spray(s) by i nhalation every four hours as needed for wheezing ALBUTEROL SULFATE (VENTOLIN INHALATION) Inhale 1 Montegut as instructed every 4 hours as needed [...] needed ALBUTEROL SULFATE (VENTOLIN INHALATION) Inhale 1 Montegut as instructed every 4 hours as needed. 0 Active Comment on above: Inhale 1 Montegut as in structed every 4 hours as needed. Inhale 1 Montegut as in structed every 4 hours as [...] Active IPRATROPIUM BROM HERMINIO NASAL Use 1 Montegut in the nose every morning. Active IPRATROPIUM BROM HERMINIO NASAL Use 1 Montegut in the nose every morning. 0 Suspended IPRATROPIUM BROM HERMINIO NASAL Use 1 Montegut in the nose every morning. 0 Active Comment on above: Use 1 Montegut in the n ose every morning. levothyroxine [...] misc 2 Bags as needed. 10 Each 03/03/2024 Active Comment on above: 2 Bags [...] 1 Inhalation as instructed twice daily. calcitriol 0.21990 mg oral capsule (20 sources) Vitamin D3 [...] Discontinued 500 mg PO EVERY 6 HOURS November 28, 2018 1:00am December 15, 2018 1:26pm Comment on above: Take 1 capsule by mo [facility] one time only for 1 dose. Take one hour before procedure Take 1 capsule by mo [facility] three times a day for 5 days. cholecalciferol 1.25 mg oral capsule (20 sources) Vitamin D Start: End: take 1 capsule by mouth every month Cholecalciferol (Vitamin D3) 1,250 mcg (50,000 unit) capsule Discontinued 1250 ug PO EVERY MONTH 12 August 02, 2022 4:20pm August 02, 2023 2:42pm ciprofloxacin 500 mg oral tablet (20 sources) Quinolone Antimicrobial Start: 024 End: take 1 tablet by mouth twice daily [...] 500 mg PO TWICE A DAY 10 July 06, 2021 12:00am September 05, 2021 [...] Discontinued 100 mg PO TWICE A DAY 20 April 10, 2023 12:00am April 19, 2023 12:00am April 20, 2023 12:03am Start: 05-24-2020 End: 07-13-2020 take 1 capsule by mouth once daily Doxycycline Hyclate 100 MG capsule Discontinued 100 mg PO DAILY May 24, 2020 12:00am July 13, 2020 1:25pm ergocalciferol 1.25 mg oral capsule (20 sources) Provitamin D2 Compound Start: 01-06-2018 End: 07-25-2018 Ergocalciferol (Vitamin D2) 50,000 UNIT capsule Discontinued 41940 U PO January 06, 2018 1:00am July [...] 8:30am Start: 09-09-2013 End: 09-10-2013 lactobacillus acidophilus [id number] unt / pectin 100 mg oral tablet (20 sources) Start: 09-04-2020 End: 09-11-2020 take 1 tablet by mouth four times daily Acidophilus-Pectin, Stevens 1 TABLET tablet Discontinued 2 {tbl} PO 4 TIMES DAILY 56 7 0 September 04, 2020 12:00am September 10, 2020 12:00am September 11, 2020 12:03am Start: 09-04-2020 End: 09-11-2020 take 2 tablets by mouth four times daily Acidophilus-Pectin, Stevens Discontinued 2 TABLET PO 4 TIMES DAILY [...] pseudomonas pyelonephritis weekly bmp, cbc. Fax to [phone] vancomycin 250 mg oral capsule (20 sources) [...] vaginitis; Translations: [Postmenopausal atrophic vaginitis] 05-30-2021 Chronic Nonspecific chest pain (1 source) Chest pain, unspecified; Translations: [Chest pain, unspecified] Onset: 5 Episodic Other aftercare (20 sources) Wound finding; Translations: [...] diseases] 11-10-2023 Episodic Other lower respiratory disease (1 source) Shortness of breath; Translations: [Shortness of breath] Onset: 5 Episodic Other lower respiratory disease (1 source) Other specified respiratory disorders; Translations: [Other specified respiratory disorders] Onset: 5 Episodic Other lower respiratory disease (2 sources) [...] Episodic Other diseases of kidney and ureters (16 sources) Unspecified hydronephrosis; Translations: [Hydronephrosis] Onset: 11-17-2023 08-07-2023 Episodic Residual codes; unclassified (20 sources) History [...] Test Name Value Interpretation Reference Range Facility [facility] 09-29-2025 [facility] Telephone ([facility]) -- TODD DELONG ([id number]) 1950 F Date Time Provider Department 09/29/25 JIN ANTONIO During your visit today, we recorded the following information about you: Radha Arnold LPN 09/29/2025 1:14 PM Signed Patient called requesting nephrostomy drainage bag. Unfortunately we do not have these on hand in our office. She has reached out to [employer] supply they ordered her drainage bags but unsure if they are the correct ones. She will let our office know if they are incorrect and we can attempt to order them from another supplier. I also advised patient she can reach out to IR to see if they have any they could supply her with. Radha Arnold LPN Allergies As of Date: 09/29/2025 Noted Allergy Reaction METHYLPREDNISOLONE 08/01/2019 14 - Other: See Comments BACTRIM (SULFAMETHOXAZOLE) 01/04/2015 12 - Shortness of Breath PRAVASTATIN 01/04/2015 10 - Anaphylaxis PREDNISONE 01/04/2015 16 - Unknown Comments: Only allergic to Methylprednisone [id number]-[id number]-[id number] REDUCTASE INHIBIT*12/07/2021 10 - Anaphylaxis Date Reviewed: 09/01/2025 Reviewed by: Kike Bo RN - Fully Assessed Reason for Visit: Patient Update [1234] Prescriptions as of 09/29/2025 - ciprofloxacin HCl (CIPRO) 500 mg tablet Take 1 tablet by mouth every 12 hours. - albuterol HFA (VENTOLIN HFA) 90 mcg/actuation inhaler Inhale 2 Puffs as instructed every 4 hours as needed for wheezing/shortness of breath. - Urinary Bag (BARD URINARY DRAINAGE SYSTEM) misc 2 Bags as needed. - levothyroxine (SYNTHROID) 25 mcg tablet Take 1 tablet by mouth daily before breakfast. - ipratropium bromide (ATROVENT) 42 mcg (0.06 %) nasal spray Use 2 Sprays in the nose every morning. - pantoprazole DR (PROTONIX) 40 mg tablet Take 40 mg by mouth every morning. - potassium chloride ER (KLOR-CON) 20 mEq tablet Take 20 mEq by mouth every morning. - amLODIPine (NORVASC) 2.5 mg tablet Take 2.5 mg by mouth every morning. Problem List As Of Date 09/29/2025 Noted Resolved Hypermature senile cataract - Both [...] Leukocytosis [D72.829] 10/10/2023 Diarrhea [R19.7] 10/10/2023 Recurrent urinary tract infection [N39.0] 10/10/2023 Hydronephrosis [N13.30] 11/17/2023 Preop testing [Z01.818] 02/06/2024 UTI (urinary tract infection) [N39.0] 06/18/2024 06/19/2024 UTI (urinary tract infection) [N39.0] 06/19/2024 Sepsis secondary to UTI (HCC) (HCC) [A41.9, N3*09/06/2024 Hydronephrosis of left kidney [N13.30] 12/05/2024 Pyelonephritis [N12] 12/05/2024 Nephrostomy tube displaced (HCC) [T83.022A] 12/05/2024 Gram-negative bacteremia [R78.81] 01/13/2025 Obesity, Class I, BMI 30-34.9 [E66.811] 01/16/2025 CKD (chronic kidney disease), stage III (HCC) [*01/16/2025 Encounter Status:Closed by RADHA ARNOLD on 09/29/25 [facility] [id number] 09-01-2025 [id number] HNO ID: [id number] Author: SAMANTA PAGE RN Service: ? Author Type: Registered Nurse Type: [id number] Filed: 09/01/2025 09:57 Note Text: Today you had a procedure or exam with sedation. Sedation is the administration of medications to help you relax and to minimize pain and anxiety. What to expect: Certain sedation and pain medications may cause nausea and vomiting. You may feel sleepy or dizzy for several hours. You may have a brief period of amnesia (unable to remember what happened). If the area around the intravenous site on your arm is sore you can apply: An ice pack over it for 5 minutes twice a day the first 24 hours. A heating pack over for 5 minutes 4 times a day after 24 hours. The soreness should go away in a few days. The biopsy site may be black and blue. You may feel some soreness at the biopsy site. Driving: Do not drive a car, a responsible person must drive you home when you are discharged from the hospital. Do not take public transportation without a responsible adult to ride with you. You may drive the day after your procedure, unless instructed otherwise. Activity: Avoid strenuous activity and exercise, such as jogging, golfing, or playing tennis. Do not lift anything heavier than 10 pounds for 24 hours after the procedure. You may resume your normal activities 24 hours after your procedure, unless instructed otherwise. You may experience lightheadedness, dizziness, and sleepiness due to your anesthesia. Rest at home today; increase activity gradually. When you change position, move slowly to minimize any dizziness, nausea, or vomiting. It is recommended to have a responsible person with you the first few times you get up. You may not return to work or operate machinery or power tools for the rest of the day when you get home. Do not sign any important papers or makes important decisions for 24 hours. If possible, arrange care for dependent adults or children. Diet: You can return to your regular diet, progress as tolerated from light meal to normal diet. Do not drink alcoholic beverages of any kind, including beer or wine. Alcohol makes the effects of anesthesia and sedation stronger, and these will still be in your body. Bathing and showering guidelines: You may shower. DO NOT swim or soak in water for 24 hours after the procedure. Medications: Continue taking all of your prescribed medications after the procedure except bloodthinning or platelet-altering medications, unless instructed otherwise by your doctor. If you are taking any blood-thinning or platelet-altering medications, it is recommended that you not take these medications for 24 hours after your procedure. Do not take sleeping pills or any other psychotropic (nerve) medications for the rest of the day. These medications enhance the effects of anesthesia and sedation that will still be present in your body. You may take acetaminophen (Tylenol?) as needed to relieve discomfort unless allergic or told not to take Tylenol. Follow the directions on the package labeling and never exceed the recommended dose. Site Care Keep the bandage that is over the biopsy site clean and dry. You may remove the bandage after 24 hours. Clean the biopsy site with mild soap and water. Call your doctor if you: See signs of infection, such as redness, drainage, foul odor, or swelling at the biopsy site. Have a temperature higher than 100.4? F or 38? C. Develop shaking chills. Have pain that is not relieved by your usual pain medications. After Placement of a Nephrostomy Tube What is a nephrostomy tube? A nephrostomy tube is a slender, hollow, flexible tube with several small holes along the sides. It is inserted into your kidney where urine is formed. The tube helps drain the urine when a blockage prevents its natural flow to the bladder. The tube has an external drain that is used to drain urine outside the body to a bag. What is a nephroureteral tube? A nephroureteral tube is a slender, hollow, flexible tube that helps restore the natural flow of urine from the kidney to the bladder. The tube has an external drain that may be used to drain urine outside the body to a bag if needed. What is a ureteral stent? A ureteral stent is a slender, hollow, flexible tube that drains urine from the kidney to the bladder. There is no tube or bag outside the body. Driving It is unsafe for you to drive after the procedure. A responsible adult must drive you home when you are discharged. You may drive the day after your procedure, unless instructed otherwise. Diet You may resume your normal diet after the procedure. Drink at least 6 to 8 glasses of fluid per day while your tube is in place, or as directed by your doctor. Activity Rest when you get home after the procedure. We recommend a responsible adult stay with you overnight after the procedure. Avoid lying or sleeping (more content not included)... Normal [facility] BRIEF OP NOTon 09-01-2025 BRIEF OP NOT HNO ID: [id number] Author: JONA CLARK MD Service: Interventional Radiology Author Type: Physician Type: Brief Op Note Filed: 09/01/2025 10:20 Note Text: BRIEF OPERATIVE / PROCEDURE NOTE LOG ID: [id number] SURGERY/PROCEDURE DATE: 09/01/2025 INCISION/PROCEDURE START TIME: 10:05 AM INCISION CLOSE/PROCEDURE END TIME: 10:12 AM SURGEON(S)/PROCEDURALIST(S ) AND MAMMALOGIST(S): Surgeons and Role: * Jona Clark MD - Primary No Additional Staff SURGERY/PROCEDURE(S): Bilateral nephrostomy exchange ANESTHESIA: Procedural Sedation FINDINGS: Bilateral nephrostomy tubes exchanged without difficulty. ESTIMATED BLOOD LOSS: 0 ml SPECIMENS: None PRE-OP/PRE-PROCEDURE DIAGNOSIS: Chronic bilateral nephrostomy tubes, for routine exchange. POST-OP/POST-PROCEDURE DIAGNOSIS: Same as Preop Patient was accompanied to the next level of care by a licensed practitioner from the surgical team pending completion of this brief op note (or operative note) SIGNATURE: Jona Clark MD PATIENT NAME: Todd Delong DATE: September 01, 2025 TIME: 10:18 AM [facility] IR EXCHANGE NEPH TUBE BILATo n 09-01-2025 IR EXCHANGE NEPH TUBE BILAT * * *Final Report* * * DATE OF EXAM: Sep 01 2025 10:33AM [facility] [id number] - IR EXCHANGE NEPH TUBE BILAT / PROCEDURE REASON: Bilateral neph tube exchanges q 8-10 weeks * * * * Physician Interpretation * * * * PROCEDURE: GENITOURINARY CATHETER EXCHANGE Procedural Personnel Attending physician(s): Jona Clark M.D. Fellow physician(s): None Resident physician(s): None Advanced practice provider(s): None Medical Student(s): None Pre-procedure diagnosis: Bilateral ureteral obstruction. Post-procedure diagnosis: Same Indication: Routine scheduled exchange Additional clinical history: None PROCEDURE SUMMARY - Target organ: Bilateral [place] kidneys - Antegrade nephrostogram(s) via the existing [...] and procedure-specific equipment needs. Start of procedure: 0950 End of procedure: 1005 Patient position: Prone Preparation: The site was prepared and draped using all elements of maximal sterile barrier technique including sterile gloves, sterile gown, cap, mask, large sterile sheet, hand hygiene and cutaneous antisepsis. Antibiotics: Cefazolin Antibiotic infusion start time: 0900 Prophylactic antibiotic administered: Within 1 hour of procedure start time or 2 hours for vancomycin or fluoroquinolones Additional med: None Additional med: None Contrast Contrast agent: VISPAQUE 270 Contrast volume (mL): 7 Image Guidance: Fluoroscopic guidance. Radiation Dose FLUOROSCOPIC RADIATION SUMMARY: Plane A, Air Kerma: 13.0 mGy Dose Area Product (DAP): 202.0 mcGy-m2 Fluoro Time: 1:12 min:sec Radiation dose exceed 5 Gy: No If radiation dose exceeded 5 Gy, was counseling and instructional brochure provided: N/A Anesthesia/sedation Level of anesthesia/sedation: Moderate sedation (conscious sedation) Anesthesia/sedation administered by: Independent trained observer under attending supervision with continuous monitoring of the patient?s level of consciousness and physiologic status Total intra-service sedation time (minutes): 15 Local anesthesia: 1 % lidocaine Right genitourinary catheter exchange Local anesthesia was administered. Initial nephrostogram was performed. A wire was placed through the existing tube and it was removed. The new tube was advanced over the wire and position was confirmed with contrast injection. Pre-existing genitourinary catheter: 10 F [employer] nephrostomy Genitourinary catheter(s) placed: 10 F [employer] nephrostomy Findings: No hydronephrosis or filling defect noted on nephrostogram. External catheter securement: Non-absorbable suture Left genitourinary catheter exchange Local anesthesia was administered. Initial nephrostogram was performed. A wire was placed through the existing tube and it was removed. The new tube was advanced over the wire and position was confirmed with contrast injection. Pre-existing genitourinary catheter: 10 F [employer] nephrostomy Genitourinary catheter(s) placed: 10 F [employer] nephrostomy Findings: No hydronephrosis or filling defect noted on nephrostogram. External catheter securement: Non-absorbable suture Additional genitourinary system intervention Genitourinary intervention: None Location of intervention: Not applicable Device used: Not applicable Description of intervention: Not applicable Post-intervention findings: Not applicable Additional Details Additional description of procedure: None Equipment details: None Estimated blood loss (mL): Less than 10 Number and Type of Removed Specimens: 0: N/A Standardized report: [email or web address] Complications There we (more content not included)... [facility] NURSING PROGon 09-01-2025 NURSING PROG HNO ID: [id number] Author: IMELDA SEGOVIA PCNA Service: ? Author Type: Patient Care Residential Care Facility Manager Type: Nursing Progress Note Filed: 09/01/2025 08:38 Note Text: Individualized high fall risk precautions in use. Fall risk signage posted at nurses' station. Fall risk designation communicated in handoff. Reinforced education of patient to call for help prior to getting out of bed, requesting a family member be present when patient changes clothes, and cooperation requested of patient/family with fall risk interventions. [facility] NURSING PROGon 08-26-2025 NURSING PROG HNO ID: [id number] Author: SAMANTA PAGE RN Service: Nursing Author Type: Registered Nurse Type: Nursing Progress Note Filed: 08/26/2025 13:58 Note Text: -- Summary: Pre-Op Instructions for 09-01-25 -- Todd Delong is scheduled for a Nephrostomy Tube Exchange, on Monday September 01, 2025 at [facility] You are to arrive at 0830 am Access to [facility]) is located on [address] [employer] parking is available for your convenience from 5am-5pm- there is a charge for this service. Take the elevators directly inside the entrance to the 1st Floor Surgery Lobby. Sign in at the podium located to the left when you get off the elevators. A payment may be expected at the time of service. One visitor may come back to the preoperative area with you. The preoperative staff will be reviewing your medical history, please let them know if you prefer not to have a visitor with you during this time. Once you are ready for your procedure, two visitors at a time are permitted in your preprocedure room. If Pre Procedure instructions are not followed your procedure may be cancelled or rescheduled. Life Sciences Instructor/Transportation: You will need a escort vehicle driver for your procedure. You will need a responsible adult to accompany you to and from the procedure. We suggest that a responsible individual stay with you after your procedure and overnight. Diet: Do not eat solid food after midnight the night before your procedure. You may have only water until your arrival time. Medications: Please take prescribed medications such as heart, blood pressure, anti-seizure, and chronic pain medications with a sip of clear liquids. Bring your current medication list. Contrast Dye Allergy: Do you have a contrast dye allergy? No allergy confirmed with patient Please bring the following: Valid Drivers License or State ID Insurance cards Glasses to review AND sign forms Other Instructions Leave valuables AND jewelry at home Wear loose comfortable clothing If you have any questions please call [phone] This phone line is monitored M-F from 8AM to 3PM Medication pumps: Insulin pumps must be removed before entering the procedure room. Do you wear any medication devices such as Neulasta Onpro? No If yes, the device must be removed before entering the procedure room. Do you use home oxygen, CPAP or BPAP? No Do you use any assistive devices such as a cane, or walker? No Do you need a world language teacher? No Normal [facility] Absolute lymphocyte countOrd ered By: Gerardo García on 08-03-2025 Lymphocytes Auto (Unsp spec) [#/Vol] 4.85 10*3/uL High 0.83-4.51 [facility] Absolute neutrophil countOrd ered By: Gerardo García on 08-03-2025 Neutrophils (Bld) [#/Vol] 3.4 10*3/uL 2.0-7.7 [facility] Anion gap in Serum or Plasma Ordered By: Gerardo García 08-03-2025 Anion gap [Moles/Vol] 12 mmol/L -15 [facility] Automated lymphocyte count a s percentage of total leukocytesOrdered By: Gerardo García on 08-03-2025 Lymphocytes/100 WBC Auto (Unsp spec) 53.2 % High 19-41 [facility] BUN/creatinine ratioOrdered By: Gerardo García 08-03-2025 Urea nitrogen/Creatinine [Mass ratio] 10.3 mg/mg 10-20 [facility] Basophil percentageOrdered B y: Gerardo García on 08-03-2025 Basophils/100 WBC (Bld) 0.7 % 0-1 [facility] Bilirubin, totalOrdered By: Gerardo García 08-03-2025 Bilirubin [Mass/Vol] 0.57 mg/dL 0.00-1.30 [facility] Calculated very low density lipoprotein (VLDL) cholesterol measurementOrdered By: Gerardo García on 08-03-2025 Calculated very low density lipoprotein (VLDL) cholesterol measurement 21 mg/dL 5-40 [facility] Carbon dioxide, total [Moles /volume] in Central venous bloodOrdered By: Gerardo García on 08-03-2025 CO2 [Moles/Vol] 22.8 mmol/L 21.0-32.0 [facility] Chloride assayOrdered By: Lenny García on 08-03-2025 Chloride [Moles/Vol] 105 mmol/L 98-108 [facility] Eosinophil percentageOrdered By: Gerardo García on 08-03-2025 Eosinophils/100 WBC (Bld) 2.0 % 0-5 [facility] Erythrocyte distribution wid th ratioOrdered By: Gerardo García on 08-03-2025 Erythrocyte distribution width (RBC) [Ratio] 14.3 % 11.6-14.6 [facility] Erythrocyte distribution wid th standard deviationOrdered By: Gerardo García on 08-03-2025 Erythrocyte distribution width (RBC) [Ratio] 44.7 fl High 35.1-43.9 [facility] Glomerular filtration rate ( GFR) estimation/1.73 sq m using serum, plasma, or whole bOrdered By: Gerardo García on 08-03-2025 GFR/1.73 sq M.predicted among non-blacks MDRD (S/P/Bld) [Vol rate/Area] 27 mL/min/{1.73_m2} Low >60 [facility] Comment on above: mL/min/1.73m2 CKD-EP I Creatinine Equation (2020) Hematocrit Auto (Bld) [Volum e fraction]Ordered By: Gerardo García 08-03-2025 Hematocrit (Bld) [Volume fraction] 40.6 % 37-47 [facility] Hemoglobin measurementOrdere d By: Gerardo García 08-03-2025 Hemoglobin (Bld) [Mass/Vol] 13.2 g/dL 12.0-15.0 [facility] Immature granulocytes/100 WB C Auto (Bld)Ordered By: Gerardo García 08-03-2025 Immature granulocytes/100 WBC (Bld) 0.300 % 0.0-0.9 [facility] Comment on above: IG% - Immature Granu locytes (promyelocytes, myelocytes and metamyelocytes) > 1% indicates that a LEFT SHIFT is Present. LDL calc ser/plasOrdered By: Gerardo García on 08-03-2025 Cholesterol in LDL [Mass/Vol] 117 mg/dL [facility] Comment on above: Afqxaubotx=562-716 m g/dL & Higher Heuv=715 mg/dL or greaterFriedwald Equation for LDL-C Laboratory - Chemistry and C hemistry - challengeOrdered By: Gerardo García on 08-03-2025 AST [Catalytic activity/Vol] 18 U/L <32 [facility] MCV (mean corpuscular volume ) determinationOrdered By: Gerardo García on 08-03-2025 MCV (RBC) [Entitic vol] 85.8 fL 81-99 [facility] Mean corpuscular hemoglobin (MCH) determinationOrdered By: Gerardo García on 08-03-2025 MCH (RBC) [Entitic mass] 27.9 pg 27.0-32.0 [facility] Mean corpuscular hemoglobin concentration (MCHC) determinationOrdered By: Gerardo García on 08-03-2025 MCHC (RBC) [Mass/Vol] 32.5 g/dL 32-36 [facility] Mean platelet volume determi nationOrdered By: Gerardo García on 08-03-2025 Platelet mean volume (Bld) [Entitic vol] 10.0 fL 6.2-12.0 [facility] Monocyte percentageOrdered B y: Gerardo García on 08-03-2025 Monocytes/100 WBC (Bld) 7.0 % 0-10 [facility] Neutrophil percentageOrdered By: Gerardo García on 08-03-2025 Neutrophils/100 WBC (Bld) 36.8 % Low 47-70 [facility] Nucleated red blood cell per centageOrdered By: Gerardo García on 08-03-2025 Nucleated RBC/100 WBC (Bld) [Ratio] 0 % 0-5 [facility] Platelet countOrdered By: Lenny García on 08-03-2025 Platelets (Bld) [#/Vol] 330 10*3/uL 150-450 [facility] Potassium measurement (mass/ volume)Ordered By: Gerardo García on 08-03-2025 Potassium (Unsp spec) [Mass/Vol] 4.2 mmol/L 3.3-5.1 [facility] RBC Auto (Bld) [#/Vol]Ordere d By: Gerardo García on 08-03-2025 RBC (Bld) [#/Vol] 4.73 10*6/uL 4.2-5.4 [facility] Screening total cholesterol/ high density lipoprotein (HDL) cholesterol ratioOrdered By: Gerardo García on 08-03-2025 Cholesterol.total/Choles terol in HDL [Mass ratio] 4.42 {ratio} [facility] Serum creatinine measurement (mass/volume)Ordered By: Gerardo García on 08-03-2025 Creatinine [Mass/Vol] 1.93 mg/dL High 0.70-1.20 [facility] Serum globulin measurementOr dered By: Gerardo García on 08-03-2025 Globulin (S) [Mass/Vol] 4.2 g/dL 2.2-4.2 [facility] Serum glucose measurement (m ass/volume)Ordered By: Gerardo García 08-03-2025 Glucose [Mass/Vol] 108 mg/dL High 70-99 [facility] Serum or plasma alanine masterson otransferase (ALT) measurementOrdered By: Gerardo García 08-03-2025 ALT [Catalytic activity/Vol] 8 U/L <35 [facility] Serum or plasma albumin yunior urement (mass/volume)Ordered By: Gerardo García on 08-03-2025 Albumin [Mass/Vol] 3.6 g/dL 3.4-4.8 [facility] Serum or plasma albumin/glob ulin mass ratioOrdered By: Gerardo García 08-03-2025 Albumin/Globulin [Mass ratio] 0.9 {ratio} 0.9-2.4 [facility] Serum or plasma alkaline terry sphatase measurementOrdered By: Gerardo García 08-03-2025 ALP [Catalytic activity/Vol] 151 U/L High 35-104 [facility] Serum or plasma calcium yunior urement (mass/volume)Ordered By: Gerardo García 08-03-2025 Calcium [Mass/Vol] 8.6 mg/dL 7.6-11.0 [facility] Serum or plasma cholesterol in HDL measurement (mass/volume)Ordered By: Gerardo García 08-03-2025 Cholesterol in HDL [Mass/Vol] 40 mg/dL >40 [facility] Comment on above: National Cholesterol Education Program (NCEP) guidelines:<40 mg/dL: Low HDL-cholesterol (major risk factor for CHD)>= 60 mg/dL: High HDL-cholesterol (negative risk factor for CHD)HDL-cholesterol is affected by a number of factors, e.g. smoking, exercise, hormones, sex and age. Serum or plasma cholesterol measurement (mass/volume)Ordered By: Gerardo Ricky on 08-03-2025 Cholesterol [Mass/Vol] 178 mg/dL <201 [facility] Comment on above: Cholesterol level, D esirable <200 mg/dLBorderline high cholesterol 200-239 mg/dLHigh cholesterol >=240 mg/dLRecommendations of the NCEP Adult Treatment Panel for the following risk-cutoff thresholds for the [place] population. Serum or plasma urea nitroge n measurement (mass/volume)Ordered By: Gerardo García on 08-03-2025 Urea nitrogen [Mass/Vol] 20 mg/dL High 4-19 [facility] Sodium levelOrdered By: Gerardo Ricky 08-03-2025 Sodium [Moles/Vol] 140 mmol/L 133-145 [facility] TSH DL <= 0.005 mIU/L QnOrde red By: Gerardo García 08-03-2025 TSH Qn 2.400 uIU/mL 0.300-4.20 0 [facility] Total proteinOrdered By: Gerardo Ricky 08-03-2025 Protein [Mass/Vol] 7.8 g/dL 5.9-8.4 [facility] Triglycerides measurementOrd ered By: Gerardo Ricky 08-03-2025 Triglyceride [Mass/Vol] 105 mg/dL <199 [facility] Comment on above: The drugs N-Acetylcy steine and Metamizole may falsely depress this assay. Normal range: <150 mg/dLBorderline High: 150-199 mg/dLHigh: 200-499 mg/dLVery High: >500 mg/dL White blood cell (WBC) count Ordered By: Gerardo Ricky on 08-03-2025 WBC (Bld) [#/Vol] 9.1 10*3/uL 4.4-11.0 [facility] [id number] 07-09-2025 [id number] HNO ID: [id number] Author: KIKE BO RN Service: ? Author Type: Registered Nurse Type: [id number] Filed: 07/09/2025 13:41 Note Text: After Placement of a Nephrostomy Tube What is a nephrostomy tube? A nephrostomy tube is a slender, hollow, flexible tube with several small holes along the sides. It is inserted into your kidney where urine is formed. The tube helps drain the urine when a blockage prevents its natural flow to the bladder. The tube has an external drain that is used to drain urine outside the body to a bag. What is a nephroureteral tube? A nephroureteral tube is a slender, hollow, flexible tube that helps restore the natural flow of urine from the kidney to the bladder. The tube has an external drain that may be used to drain urine outside the body to a bag if needed. What is a ureteral stent? A ureteral stent is a slender, hollow, flexible tube that drains urine from the kidney to the bladder. There is no tube or bag outside the body. Driving It is unsafe for you to drive after the procedure. A responsible adult must drive you home when you are discharged. You may drive the day after your procedure, unless instructed otherwise. Diet You may resume your normal diet after the procedure. Drink at least 6 to 8 glasses of fluid per day while your tube is in place, or as directed by your doctor. Activity Rest when you get home after the procedure. We recommend a responsible adult stay with you overnight after the procedure. Avoid lying or sleeping on your back to prevent kinking of the tube. You may resume your normal activities 24 hours after the procedure. At-Home Instructions Medications Continue taking all of your prescribed medicines after the procedure unless instructed otherwise by your doctor. You may take acetaminophen (Tylenol?) as needed to relieve discomfort unless allergic or told not to take Tylenol. Follow the directions on the package labeling and never exceed the recommended dose. Bathing and showering guidelines You may shower. DO NOT swim or soak in water. Site care Keep the dressing that is over the tube site clean and dry. You may have a stitch holding your tube in place. If the stitch breaks, call your doctor. Your tube may have a lock that holds it in place. Do not open the lock. Always keep the bag below the tube site to allow proper drainage by gravity. Your dressing should be changed every other day or sooner if it becomes wet, soiled, falls off, or unless instructed otherwise. It is easier if someone helps you change the dressing. Change the drainage bag monthly. You may have a special device used to secure your tube. If it comes off, you may replace it with a rolled gauze dressing (see below). It is important that the tube remain in the proper position and does not become kinked. To change your dressing: Gather supplies ? Four (4) gauze dressings ? Tape ? Scissors ? Mild soap and water to wash around tube ? Paper towels ? Soap or hand finance administrator to wash hands Prepare new dressing ? Have a clean surface for your supplies. ? Wash your hands. ? Tear five (5) strips of tape the size needed to cover the dressing. To make the tape easier to work with, hang the strips off an edge (for example, edge of a table) and keep them close by. ? Take one (1) gauze dressing and cut a slit from the folded edge to the center of the gauze. ? Take another gauze dressing and roll it into the shape of a log. To prevent the dressing from unrolling, wrap a piece of tape around it. Remove old dressing ? Remove and throw away the old dressing. Be careful not to pull on the tube or your skin. ? Inspect the insertion site for signs of leakage, redness, drainage, foul odor, or swelling. ? Wash hands again. ? Gently wash around the tube with mild soap and water and pat dry. ? Clean the outside of the drainage tubing and bag using a damp cloth. Apply the new dressing ? Take the pre-cut gauze dressing and gently slide it around tube. ? Carefully place the dressing roll under the tube to prevent kinking at the insertion site. ? Cover the pre-cut gauze dressing, roll, and tube, with the remaining two gauze dressings. ? Secure the dressings with tape. Do not tape the tube directly on the skin. Watch for the following: Wet dressing Pain in your back or sides Little or no urine drainage If you have any of the above signs or symptoms, follow these steps: If your tube is already attached to a drainage bag, remove your dressing and check to see if the tube is kinked. If the tube is kinked, straighten the tube until fluid begins to flow. If fluid does not drain after removing the kink in the tube, you may need to gently flush the tube. If your tube is capped attach a drainage bag. Be sure the drainage bag is below the level of the tube site. Flushing your tube If your tube stops draining it may be blocke (more content not included)... [facility] BRIEF OP NOTon 07-09-2025 BRIEF OP NOT HNO ID: [id number] Author: CHEIKH HIGH MD Service: Radiology Author Type: Physician Type: Brief Op Note Filed: 07/09/2025 13:28 Note Text: INTERVENTIONAL RADIOLOGY POST PROCEDURE NOTE DATE: 07/09/25 NAME: Todd Delong LOG ID: [id number] Pre-Procedure Diagnosis: Bilateral ureteral obstruction, indwelling bilateral nephrostomy tubes. Post Procedure Diagnosis: Same. [place]in[place] Wire Weaver: Dr. Cheikh High Procedure: Image guided bilateral nephrostomy tube exchange. Anesthesia: Procedural Sedation Findings: Displaced right nephrostomy tube. Successful image guided exchange of bilateral nephrostomy tubes, new 10 [place] nephrostomy tubes placed. Estimated Blood Loss: Minimal (Less Than 25 mL). Specimen: None Complications: None Full report with procedural details to follow and will become available under Imaging Reports. Please contact for any questions or concerns. SIGNATURE: Cheikh High MD PATIENT NAME: Todd Delong DATE: July 09, 2025 TIME: 1:27 PM PAGER/CONTACT #: [facility] HISTORY PHYSICALon HISTORY PHYSICAL HNO ID: [id number] Author: CHEIKH HIGH MD Service: Radiology Author Type: Physician Type: H&P Filed: 07/09/2025 12:56 Note Text: HISTORY AND PHYSICAL EXAMINATION SERVICE DATE: 07/09/2025 SERVICE TIME: 12:50 HPI: This is a 74 year old female cervical cancer and bilateral ureteral obstruction who presents for routine exchange of nephrostomy tubes. 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 FAXED for copy Renal failure [...] Dr. 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, no longer follows with fitter/welder LX REMOVAL RENAL MASS NEPHROSTOMY TUBE ([place] [...] Relation Age of Onset Heart Father SOCIAL HISTORY[1] Prior to Admission Medications Prescriptions Last Dose Informant Patient Reported? Taking? Urinary Bag (BARD URINARY DRAINAGE SYSTEM) misc No No Si Bags as needed. albuterol HFA (VENTOLIN HFA) 90 mcg/actuation inhaler Yes No Sig: Inhale 2 Puffs as instructed every 4 hours as needed for wheezing/shortness of breath. amLODIPine (NORVASC) 2.5 mg tablet 07/09/2025 at 5:00 AM Yes Yes Sig: Take 2.5 mg by mouth every morning. ciprofloxacin HCl (CIPRO) 500 mg tablet 07/09/2025 at 5:00 AM Yes Yes Sig: Take 1 tablet by mouth every 12 hours. ipratropium bromide (ATROVENT) 42 mcg (0.06 %) nasal spray 07/09/2025 at 5:00 AM Yes Yes Sig: Use 2 Sprays in the nose every morning. levothyroxine (SYNTHROID) 25 mcg tablet 07/09/2025 at 5:00 AM Yes Yes Sig: Take 1 tablet by mouth daily before breakfast. pantoprazole DR (PROTONIX) 40 mg tablet 07/09/2025 at 5:00 AM Yes Yes Sig: Take 40 mg by mouth every morning. potassium chloride ER (KLOR-CON) 20 mEq tablet Yes No Sig: Take 20 mEq by mouth every morning. sodium chloride 0.9 %, flush, (BD POSIFLUSH) syringe No No Si mL once daily. Facility-Administered Medications: None ALLERGIES Allergen Reactions Methylprednisolone Other: See Comments Bactrim [Sulfametho* Shortness of Breath Pravastatin Anaphylaxis Prednisone Unknown Only allergic to Methylprednisone [id number] Red* Anaphylaxis COMPLETE REVIEW OF SYSTEMS: Gen: No fever/chills CV: No chest pain Resp: No SOB Objective PHYSICAL EXAM: Physical Exam Performed: Gen: NAD CV: RRR Lungs: CTA BP 150/70[RA[ Pulse 100 Temp (Src) 98.4 (Temporal) Resp 18 Ht 5' 8 (1.73m) Wt 189 lb 9.5 oz (86.0kg) SpO2 93% BMI 28.83 kg/(m2). O2 Therapy: Room Air Assessment/Plan: Bilateral ureteral obstruction and indwelling nephrostomy tubes, presents for routine exchange. SIGNATURE: Cheikh High MD PATIENT NAME: Todd Delong DATE: July 09, 2025 TIME: 12:53 PM [1] Social History Tobacco Use Smoking status: Former Current packs/day: 1.00 Average packs/day: 1 pack/day for 17.6 years (17.6 ttl pk-yrs) Types: Cigarettes Start date: 2007 Quit date: 1967 Passive exposure: Never Smokeless tobacco: Never Vaping Use Vaping status: Never Used Substance Use Topics Alcohol use: Never Drug use: Not Currently Normal [facility] IR EXCHANGE NEPH TUBE BILATo n 07-09-2025 IR EXCHANGE NEPH TUBE BILAT * * *Final Report* * * DATE OF EXAM: Jul 09 2025 1:22PM [facility] [id number] - IR EXCHANGE NEPH TUBE BILAT / PROCEDURE REASON: neph exchange * * * * Physician Interpretation * * * * PROCEDURE: BILATERAL ANTEGRADE NEPHROSTOGRAM WITH PERCUTANEOUS NEPHROSTOMY TUBE EXCHANGE DATE: 07/09/2025 1:22 PM INDICATION: Cervical cancer and bilateral ureteral obstruction, status post bilateral nephrostomy tube placement. Patient presents for bilateral nephrostomy tube placement. ENCOUNTER: Initial COMPARISON: 06/07/2025. TECHNIQUE/FINDINGS: The procedure was performed in the VIR Suite following informed consent and a Time Out. Informed consent was obtained from the patient. Patient monitoring: Supervised observer The skin sites of the indwelling percutaneous nephrostomy tubes were prepped and draped using all elements of maximal sterile barrier technique (cap, mask, sterile gown, sterile gloves, a large sterile sheet, hand hygiene and cutaneous antisepsis). The patient was evaluated for the safety and appropriateness of conscious sedation and the Moderate Sedation Record was completed. The patient was sedated with intravenous Fentanyl and Versed administered by the radiology nurses. Please refer to nursing notes for medication dosages. The patient's vital signs were monitored during the procedure by the radiology nurses. Total intraservice time (monitoring for moderate sedation) was 25 minutes. Patient monitoring: Supervised observer 2 g Ancef was administered for antibiotic prophylaxis. Left antegrade nephrostogram was performed via the indwelling nephrostomy tube assess for positioning and opacification of the renal collecting system. Nephrostomy tube was noted to be displaced into inferior pole calyx. Following this, the tube was cut at the skin site and an stiff Glidewire was advanced via the tube into the left renal collecting system/left renal pelvis. The indwelling nephrostomy tube was removed and a new 10 Burkinan nephrostomy tube was advanced over the Amplatz wire into the renal pelvis. Contrast was injected to confirm appropriate positioning within the renal collecting system. Tube was then secured to the skin site with 2-0 suture. Procedure was duplicated on the right with placement of new 10 Burkinan right-sided percutaneous nephrostomy tube with cope loop formed within the right renal pelvis. The nephrostomy tube was secured the skin site with 2-0 suture. Patient tolerated the procedure well without immediate complication. Nephrostomy tubes were placed to gravity bag. Fluoroscopic Radiation Summary: Fluoro time: 1:18 min:sec Plane A, Air Kerma: 24 mGy 90 fluoroscopic images were obtained and placed in the PACS system. FINDINGS: Left-sided percutaneous nephrostomy tube displaced into inferior pole calyx. Successful image guided exchange of bilateral nephrostomy tubes. New 10 Burkinan nephrostomy tubes were placed bilaterally with cope loops formed within the renal pelvis. IMPRESSION: Successful image guided exchange of bilateral percutaneous nephrostomy tubes, as described above. Plan for routine exchange in 8 weeks. Field Sales Executive: LADARIUS Transcribe Date/Time: Jul 09 2025 7:05P Dictated by : CHEIKH HIGH MD This examination was interpreted and the report reviewed and electronically signed by: CHEIKH HIGH MD on Jul 09 2025 7:07PM EST [id number] [facility] NURSING PROGon 07-09-2025 NURSING PROG HNO ID: [id number] Author: KIKE BO RN Service: ? Author Type: Registered Nurse Type: Nursing Progress Note Filed: 07/09/2025 13:38 Note Text: Fall risk designation communicated in handoff. Individualized high fall risk precautions reviewed and in use. Reinforced educaton of patient to call for help prior to getting out of bed, requesting a family member be present when patient changes clothes, and cooperation requested of patient/family with fall risk interventions. [facility] NURSING PROG HNO ID: [id number] Author: IMELDA SEGOVIA PCNA Service: ? Author Type: Patient Care Residential Care Facility Manager Type: Nursing Progress Note Filed: 07/09/2025 11:08 Note Text: Individualized high fall risk precautions in use. Fall risk signage posted at nurses' station. Fall risk designation communicated in handoff. Reinforced education of patient to call for help prior to getting out of bed, requesting a family member be present when patient changes clothes, and cooperation requested of patient/family with fall risk interventions. [id number] -- TODD DELONG ([id number]) 1950 F Date Time Provider Department 07/08/25 OBI FELIX [id number] During your visit today, we recorded the following information about you: Obi Felix APRN.TRANSITIONS RN CARE COORDINATOR 07/08/2025 8:43 AM Signed I called patient and discussed recommendation for IR exchange on L side if unable to get into IR today will have her go to ED. I called radiology and left VM to call back, if they do, please me know so I can talk to them Thanks Obi Felix, KRYSTAL.TRANSITIONS RN CARE COORDINATOR Carlene Marinelli 07/09/2025 8:52 AM Signed Pt is scheduled with IR today 07-09-25 Allergies As of Date: 07/08/2025 Noted Allergy Reaction METHYLPREDNISOLONE 08/01/2019 14 - Other: See Comments BACTRIM (SULFAMETHOXAZOLE) 01/04/2015 12 - Shortness of Breath PRAVASTATIN 01/04/2015 10 - Anaphylaxis PREDNISONE 01/04/2015 16 - Unknown Comments: Only allergic to Methylprednisone [id number] REDUCTASE INHIBIT*12/07/2021 10 - Anaphylaxis Date Reviewed: 07/08/2025 Reviewed by: Samanta Page RN - Fully Assessed Reason for Visit: Patient Update [1234] Prescriptions as of 07/09/2025 - albuterol HFA (VENTOLIN HFA) 90 mcg/actuation inhaler Inhale 2 Puffs as instructed every 4 hours as needed for wheezing/shortness of breath. - sodium chloride 0.9 %, flush, (BD POSIFLUSH) syringe 10 mL once daily. - Urinary Bag (BARD URINARY DRAINAGE SYSTEM) misc 2 Bags as needed. - levothyroxine (SYNTHROID) 25 mcg tablet Take 1 tablet by mouth daily before breakfast. - ipratropium bromide (ATROVENT) 42 mcg (0.06 %) nasal spray Use 2 Sprays in the nose every morning. - pantoprazole DR (PROTONIX) 40 mg tablet Take 40 mg by mouth every morning. - potassium chloride ER (KLOR-CON) 20 mEq tablet Take 20 mEq by mouth every morning. - amLODIPine (NORVASC) 2.5 mg tablet Take 2.5 mg by mouth every morning. Problem List As Of Date 07/08/2025 Noted Resolved Hypermature senile cataract - Both [...] Leukocytosis [D72.829] 10/10/2023 Diarrhea [R19.7] 10/10/2023 Recurrent urinary tract infection [N39.0] 10/10/2023 Hydronephrosis [N13.30] 11/17/2023 Preop testing [Z01.818] 02/06/2024 UTI (urinary tract infection) [N39.0] 06/18/2024 06/19/2024 UTI (urinary tract infection) [N39.0] 06/19/2024 Sepsis secondary to UTI (HCC) (HCC) [A41.9, N3*09/06/2024 Hydronephrosis of left kidney [N13.30] 12/05/2024 Pyelonephritis [N12] 12/05/2024 Nephrostomy tube displaced (HCC) [T83.022A] 12/05/2024 Gram-negative bacteremia [R78.81] 01/13/2025 Obesity, Class I, BMI 30-34.9 [E66.811] 01/16/2025 CKD (chronic kidney disease), stage III (HCC) [*01/16/2025 Encounter Status:Closed by OBI FELIX on 07/08/25 [facility] CNPN Telephone (URCANT) -- TODD DELONG ([id number]) 1950 F Date Time Provider Department 07/08/25 JIN ANTONIO During your visit today, we recorded the following information about you: Aide Archer 07/08/2025 9:39 AM Signed Pt calling sts she feels terrible, L tube is out she is being treated for UTI and just doesn't feel good. Please advise patient. Obi Saldana APRN.CAROLYNE 07/08/2025 9:44 AM Signed Called and spoke with patient, contacted IR [...] ED She is currently on Cipro Thanks Obi Felix APRN.TRANSITIONS RN CARE COORDINATOR Allergies As of Date: 07/08/2025 Noted Allergy Reaction METHYLPREDNISOLONE 08/01/2019 14 - Other: See Comments BACTRIM (SULFAMETHOXAZOLE) 01/04/2015 12 - Shortness of Breath PRAVASTATIN 01/04/2015 10 - Anaphylaxis PREDNISONE 01/04/2015 16 - Unknown Comments: Only allergic to Methylprednisone [id number] REDUCTASE INHIBIT*12/07/2021 10 - Anaphylaxis Date Reviewed: 06/15/2025 Reviewed by: Kiya Medrano, RN - Fully Assessed Reason for Visit: Patient Update [1234] Primary Visit Diagnosis:Hydronephrosis, unspecified hydronephrosis type [N13.30] Order(s):IR NEPH TUBE CHANGE [[id number]] Order #: [id number] Prescriptions as of 07/08/2025 - albuterol HFA (VENTOLIN HFA) 90 mcg/actuation inhaler Inhale 2 Puffs as instructed every 4 hours as needed for wheezing/shortness of breath. - sodium chloride 0.9 %, flush, (BD POSIFLUSH) syringe 10 mL once daily. - Urinary Bag (BARD URINARY DRAINAGE SYSTEM) misc 2 Bags as needed. - levothyroxine (SYNTHROID) 25 mcg tablet Take 1 tablet by mouth daily before breakfast. - ipratropium bromide (ATROVENT) 42 mcg (0.06 %) nasal spray Use 2 Sprays in the nose every morning. - pantoprazole DR (PROTONIX) 40 mg tablet Take 40 mg by mouth every morning. - potassium chloride ER (KLOR-CON) 20 mEq tablet Take 20 mEq by mouth every morning. - amLODIPine (NORVASC) 2.5 mg tablet Take 2.5 mg by mouth every morning. Problem List As Of Date 07/08/2025 Noted Resolved Hypermature senile cataract - Both [...] Leukocytosis [D72.829] 10/10/2023 Diarrhea [R19.7] 10/10/2023 Recurrent urinary tract infection [N39.0] 10/10/2023 Hydronephrosis [N13.30] 11/17/2023 Preop testing [Z01.818] 02/06/2024 UTI (urinary tract infection) [N39.0] 06/18/2024 06/19/2024 UTI (urinary tract infection) [N39.0] 06/19/2024 Sepsis secondary to UTI (HCC) (HCC) [A41.9, N3*09/06/2024 Hydronephrosis of left kidney [N13.30] 12/05/2024 Pyelonephritis [N12] 12/05/2024 Nephrostomy tube displaced (HCC) [T83.022A] 12/05/2024 Gram-negative bacteremia [R78.81] 01/13/2025 Obesity, Class I, BMI 30-34.9 [E66.811] 01/16/2025 CKD (chronic kidney disease), stage III (HCC) [*01/16/2025 Encounter Status:Closed by OBI FELIX on 07/08/25 [facility] PROGon 07-08-2025 NURSING PROG HNO ID: [id number] Author: SAMANTA PAGE RN Service: Nursing Author Type: Registered Nurse Type: Nursing Progress Note Filed: 07/08/2025 11:16 Note Text: -- Summary: Pre-Op Instructions for 07-09-25 -- Todd Minda Delong is scheduled for a Neph tube check/exchange, on June at [facility] You are to arrive at 1130 am Access to [facility] is located on [address] [place] [address]. Cane Cutter parking is available for your convenience from 5am-5pm- there is a charge for this service. Take the elevators directly inside the entrance to the 1st Floor Surgery Lobby. Sign in at the podium located to the left when you get off the elevators. A payment may be expected at the time of service. One visitor may come back to the preoperative area with you. The preoperative staff will be reviewing your medical history, please let them know if you prefer not to have a visitor with you during this time. Once you are ready for your procedure, two visitors at a time are permitted in your preprocedure room. If Pre Procedure instructions are not followed your procedure may be cancelled or rescheduled. Life Sciences Instructor/Transportation: You will need a escort vehicle driver for your procedure. You will need a responsible adult to accompany you to and from the procedure. We suggest that a responsible individual stay with you after your procedure and overnight. Diet: Do not eat solid food after midnight the night before your procedure. You may have only water until your arrival time. Medications: Please take prescribed medications such as heart, blood pressure, anti-seizure, and chronic pain medications with a sip of clear liquids. Bring your current medication list. Contrast Dye Allergy: Do you have a contrast dye allergy? No allergy per my chart Please bring the following: Valid Drivers License or State ID Insurance cards Glasses to review AND sign forms Other Instructions Leave valuables AND jewelry at home Wear loose comfortable clothing If you have any questions please call [phone] This phone line is monitored M-F from 8AM to 3PM Medication pumps: Insulin pumps must be removed before entering the procedure room. Do you wear any medication devices such as Neulasta Onpro? No If yes, the device must be removed before entering the procedure room. Do you use home oxygen, CPAP or BPAP? No Do you use any assistive devices such as a cane, or walker? No Do you need a world language teacher? No Normal [facility] Absolute lymphocyte countOrd ered By: Gerardo García on 07-06-2025 Lymphocytes Auto (Unsp spec) [#/Vol] 4.76 10*3/uL High 0.83-4.51 [facility] Absolute neutrophil countOrd ered By: Gerardo García on 07-06-2025 Neutrophils (Bld) [#/Vol] 5.7 10*3/uL 2.0-7.7 [facility] Anion gap in Serum or Plasma Ordered By: Gerardo García on 07-06-2025 Anion gap [Moles/Vol] 13 mmol/L 5-15 [facility] Automated lymphocyte count a s percentage of total leukocytesOrdered By: Gerardo García on 07-06-2025 Lymphocytes/100 WBC Auto (Unsp spec) 41.6 % High 19-41 [facility] BUN/creatinine ratioOrdered By: Gerardo García 07-06-2025 Urea nitrogen/Creatinine [Mass ratio] 9.0 mg/mg Low 10-20 [facility] Basophil percentageOrdered B y: Gerardo García on 07-06-2025 Basophils/100 WBC (Bld) 0.6 % 0-1 [facility] Bilirubin Test strip Ql (U)O rdered By: Gerardo García on 07-06-2025 Bilirubin Ql (U) Negative Negative [facility] Carbon dioxide, total [Moles /volume] in Central venous bloodOrdered By: Gerardo García 07-06-2025 CO2 [Moles/Vol] 22.2 mmol/L 21.0-32.0 [facility] Chloride assayOrdered By: Lenny García 07-06-2025 Chloride [Moles/Vol] 104 mmol/L 98-108 [facility] Eosinophil percentageOrdered By: Gerardo García 07-06-2025 Eosinophils/100 WBC (Bld) 1.1 % 0-5 [facility] Erythrocyte distribution wid th ratioOrdered By: Gerardo García 07-06-2025 Erythrocyte distribution width (RBC) [Ratio] 14.2 % 11.6-14.6 [facility] Erythrocyte distribution wid th standard deviationOrdered By: Gerardo García 07-06-2025 Erythrocyte distribution width (RBC) [Ratio] 45.7 fl High 35.1-43.9 [facility] Glomerular filtration rate ( GFR) estimation/1.73 sq m using serum, plasma, or whole bOrdered By: Gerardo García 07-06-2025 GFR/1.73 sq M.predicted among non-blacks MDRD (S/P/Bld) [Vol rate/Area] 31 mL/min/{1.73_m2} Low >60 [facility] Comment on above: mL/min/1.73m2 CKD-EP I Creatinine Equation (2020) Hematocrit Auto (Bld) [Volum e fraction]Ordered By: Gerardo García 07-06-2025 Hematocrit (Bld) [Volume fraction] 41.3 % 37-47 [facility] Hemoglobin measurementOrdere d By: Gerardo García 07-06-2025 Hemoglobin (Bld) [Mass/Vol] 13.4 g/dL 12.0-15.0 [facility] Immature granulocytes/100 WB C Auto (Bld)Ordered By: Gerardo García 07-06-2025 Immature granulocytes/100 WBC (Bld) 0.600 % 0.0-0.9 [facility] Comment on above: IG% - Immature Granu locytes (promyelocytes, myelocytes and metamyelocytes) > 1% indicates that a LEFT SHIFT is Present. Ketones Test strip Ql (U)Ord ered By: Gerardo García on 07-06-2025 Ketones Ql (U) Negative Negative [facility] MCV (mean corpuscular volume ) determinationOrdered By: Gerardo García on 07-06-2025 MCV (RBC) [Entitic vol] 87.9 fL 81-99 [facility] Mean corpuscular hemoglobin (MCH) determinationOrdered By: Gerardo aGrcía on 07-06-2025 MCH (RBC) [Entitic mass] 28.5 pg 27.0-32.0 [facility] Mean corpuscular hemoglobin concentration (MCHC) determinationOrdered By: Gerardo García on 07-06-2025 MCHC (RBC) [Mass/Vol] 32.4 g/dL 32-36 [facility] Mean platelet volume determi nationOrdered By: Gerardo García on 07-06-2025 Platelet mean volume (Bld) [Entitic vol] 11.0 fL 6.2-12.0 [facility] Microscopic analysis of urin e for red blood cells (RBC)Ordered By: Gerardo García on 07-06-2025 Microscopic analysis of urine for red blood cells (RBC) 0 SEEN /hpf 0-5 [facility] Monocyte percentageOrdered B y: Gerardo García on 07-06-2025 Monocytes/100 WBC (Bld) 6.5 % 0-10 [facility] Mucus LM Ql (Urine sed)Order ed By: Gerardo García on 07-06-2025 Mucus Ql (Urine sed) 0 SEEN /hpf [facility] Neutrophil percentageOrdered By: Gerardo García on 07-06-2025 Neutrophils/100 WBC (Bld) 49.6 % 47-70 [facility] Nitrite Test strip Ql (U)Ord ered By: Gerardo García on 07-06-2025 Nitrite Ql (U) Negative Negative [facility] Nucleated red blood cell per centageOrdered By: Gerardo García on 07-06-2025 Nucleated RBC/100 WBC (Bld) [Ratio] 0 % 0-5 [facility] Platelet countOrdered By: Lenny García on 07-06-2025 Platelets (Bld) [#/Vol] 304 10*3/uL 150-450 [facility] Potassium measurement (mass/ volume)Ordered By: Gerardo García on 07-06-2025 Potassium (Unsp spec) [Mass/Vol] 4.2 mmol/L 3.3-5.1 [facility] Protein Test strip Ql (U)Ord ered By: Gerardo García on 07-06-2025 Protein Ql (U) 30 mg/dl High Negative [facility] RBC Auto (Bld) [#/Vol]Ordere d By: Gerardo García on 07-06-2025 RBC (Bld) [#/Vol] 4.70 10*6/uL 4.2-5.4 [facility] Serum creatinine measurement (mass/volume)Ordered By: Gerardo García on 07-06-2025 Creatinine [Mass/Vol] 1.74 mg/dL High 0.70-1.20 [facility] Serum glucose measurement (m ass/volume)Ordered By: Gerardo García 07-06-2025 Glucose [Mass/Vol] 82 mg/dL 70-99 [facility] Serum or plasma C reactive p rotein measurement (mass/volume)Ordered By: Gerardo García 07-06-2025 CRP [Mass/Vol] 26.70 mg/L High 0.0-3.0 [facility] Serum or plasma calcium yunior urement (mass/volume)Ordered By: Gerardo García 07-06-2025 Calcium [Mass/Vol] 8.5 mg/dL 7.6-11.0 [facility] Serum or plasma urea nitroge n measurement (mass/volume)Ordered By: Gerardo García 07-06-2025 Urea nitrogen [Mass/Vol] 16 mg/dL 4-19 [facility] Sodium levelOrdered By: Gerardo García 07-06-2025 Sodium [Moles/Vol] 139 mmol/L 133-145 [facility] Squamous epithelial cells de tection in urine sediment by light microscopyOrdered By: Gerardo García 07-06-2025 Epithelial cells.squamous LM Ql (Urine sed) 0 SEEN /hpf 5-10 [facility] Transitional cells detection in urine sediment by light microscopyOrdered By: Gerardo García on 07-06-2025 Transitional cells LM Ql (Urine sed) 0-5 SEEN /hpf 0-5 [facility] Urine clarityOrdered By: Gerardo García 07-06-2025 Clarity (U) Sl. Cloudy Clear [facility] Urine color determinationOrd ered By: Gerardo García on 07-06-2025 Color (U) Yellow Yellow [facility] Urine cultureOrdered By: Gerardo García on 07-06-2025 Bacteria identified Cx Nom (U) Pseudomonas aeruginosa#2 Abnormal [facility] Bacteria identified Cx Nom (U) Pseudomonas aeruginosa Abnormal [facility] Bacteria identified Cx Nom (U) Enterococcus faecalis Abnormal [facility] Urine glucose detectionOrder ed By: Gerardo García on 07-06-2025 Glucose Ql (U) Normal mg/dl Normal [facility] Urine leukocyte esterase det ection by dipstickOrdered By: Gerardo García on 07-06-2025 Leukocyte esterase Test strip Ql (U) 500 /ul High Negative [facility] Urine pHOrdered By: Gerardo García on 07-06-2025 pH (U) 7.0 [pH] 5.0 - 8.0 [facility] Urine sediment bacteria coun t by microscopy (number/high power field)Ordered By: Gerardo García on 07-06-2025 Bacteria LM.HPF (Urine sed) [#/Area] 1 /[HPF] None Seen [facility] Urine specific gravity measu rementOrdered By: Gerardo García on 07-06-2025 Specific gravity (U) [Rel density] 1.005 1.002-1.03 0 [facility] Urine urobilinogen measureme ntOrdered By: Gerardo García on 07-06-2025 Urobilinogen Ql (U) Normal mg/dl Normal [facility] White blood cell (WBC) count Ordered By: Gerardo García on 07-06-2025 WBC (Bld) [#/Vol] 11.5 10*3/uL High 4.4-11.0 [facility] White blood cell countOrdere d By: Gerardo García on 07-06-2025 White blood cell count 0-5 SEEN /hpf 0-5 [facility] [id number] 06-15-2025 [id number] HNO ID: [id number] Author: SAMANTA PAGE, RN Service: ? Author Type: Registered Nurse Type: [id number] Filed: 06/15/2025 10:37 Note Text: NEXT APPOINTMENT: 2024 @ 0830 TO SAME DAY SURGERY After Placement of a Nephrostomy Tube What is a nephrostomy tube? A nephrostomy tube is a slender, hollow, flexible tube with several small holes along the sides. It is inserted into your kidney where urine is formed. The tube helps drain the urine when a blockage prevents its natural flow to the bladder. The tube has an external drain that is used to drain urine outside the body to a bag. What is a nephroureteral tube? A nephroureteral tube is a slender, hollow, flexible tube that helps restore the natural flow of urine from the kidney to the bladder. The tube has an external drain that may be used to drain urine outside the body to a bag if needed. What is a ureteral stent? A ureteral stent is a slender, hollow, flexible tube that drains urine from the kidney to the bladder. There is no tube or bag outside the body. Driving It is unsafe for you to drive after the procedure. A responsible adult must drive you home when you are discharged. You may drive the day after your procedure, unless instructed otherwise. Diet You may resume your normal diet after the procedure. Drink at least 6 to 8 glasses of fluid per day while your tube is in place, or as directed by your doctor. Activity Rest when you get home after the procedure. We recommend a responsible adult stay with you overnight after the procedure. Avoid lying or sleeping on your back to prevent kinking of the tube. You may resume your normal activities 24 hours after the procedure. At-Home Instructions Medications Continue taking all of your prescribed medicines after the procedure unless instructed otherwise by your doctor. You may take acetaminophen (Tylenol?) as needed to relieve discomfort unless allergic or told not to take Tylenol. Follow the directions on the package labeling and never exceed the recommended dose. Bathing and showering guidelines You may shower. DO NOT swim or soak in water. Site care Keep the dressing that is over the tube site clean and dry. You may have a stitch holding your tube in place. If the stitch breaks, call your doctor. Your tube may have a lock that holds it in place. Do not open the lock. Always keep the bag below the tube site to allow proper drainage by gravity. Your dressing should be changed every other day or sooner if it becomes wet, soiled, falls off, or unless instructed otherwise. It is easier if someone helps you change the dressing. Change the drainage bag monthly. You may have a special device used to secure your tube. If it comes off, you may replace it with a rolled gauze dressing (see below). It is important that the tube remain in the proper position and does not become kinked. To change your dressing: Gather supplies ? Four (4) gauze dressings ? Tape ? Scissors ? Mild soap and water to wash around tube ? Paper towels ? Soap or hand finance administrator to wash hands Prepare new dressing ? Have a clean surface for your supplies. ? Wash your hands. ? Tear five (5) strips of tape the size needed to cover the dressing. To make the tape easier to work with, hang the strips off an edge (for example, edge of a table) and keep them close by. ? Take one (1) gauze dressing and cut a slit from the folded edge to the center of the gauze. ? Take another gauze dressing and roll it into the shape of a log. To prevent the dressing from unrolling, wrap a piece of tape around it. Remove old dressing ? Remove and throw away the old dressing. Be careful not to pull on the tube or your skin. ? Inspect the insertion site for signs of leakage, redness, drainage, foul odor, or swelling. ? Wash hands again. ? Gently wash around the tube with mild soap and water and pat dry. ? Clean the outside of the drainage tubing and bag using a damp cloth. Apply the new dressing ? Take the pre-cut gauze dressing and gently slide it around tube. ? Carefully place the dressing roll under the tube to prevent kinking at the insertion site. ? Cover the pre-cut gauze dressing, roll, and tube, with the remaining two gauze dressings. ? Secure the dressings with tape. Do not tape the tube directly on the skin. Watch for the following: Wet dressing Pain in your back or sides Little or no urine drainage If you have any of the above signs or symptoms, follow these steps: If your tube is already attached to a drainage bag, remove your dressing and check to see if the tube is kinked. If the tube is kinked, straighten the tube until fluid begins to flow. If fluid does not drain after removing the kink in the tube, you may need to gently flush the tube. If your tube is capped attach a drainage bag. Be sure the drainage bag is below the level of the tube site. (more content not included)... [facility] ALLIED HEALTHon 06-15-2025 ALLIED HEALTH HNO ID: [id number] Author: CARLENE PERKINS Chaplain Service: Spiritual Care Author Type: Voice Intercept Technician Type: Allied Health Filed: 06/15/2025 09:55 Note Text: SPIRITUAL CARE Spiritual Care Visit Record Name: Todd Delong Date: June 15, 2025 Type of Visit: Preoperative Prayer/Visit Visit was with patient and family (sister) Ministry Provided During Visit: Prayer / Spiritual Presence / Support Notes: Voice Intercept Technician provided spiritual presence/support and prayer to patient while rounding. Patient expressed gratitude. Patient anticipated to be discharged to home after procedure. No follow up needed. Voice Intercept Technician Signature: Chaplain Jennifer [facility]: Please call [phone] or Page the Manager Country Voice Intercept Technician at pager [phone]. Thank you for the opportunity to be of service. This is an electronically created document. IF PRINTED, PLEASE DO NOT REMOVE FROM THE CHART OR MODIFY PRINTED COPY. [facility] BRIEF OP NOTon 06-15-2025 BRIEF OP NOT HNO ID: [id number] Author: ROCÍO PALMER MD Service: Interventional Radiology Author Type: Physician Type: Brief Op Note Filed: 06/15/2025 10:42 Note Text: BRIEF OPERATIVE / PROCEDURE NOTE LOG ID: [id number] SURGERY/PROCEDURE DATE: 06/15/2025 INCISION/PROCEDURE START TIME: 10:20 AM INCISION CLOSE/PROCEDURE END TIME: 10:27 AM SURGEON(S)/PROCEDURALIST(S ) AND MAMMALOGIST(S): Surgeons and Role: * Rocío Palmer MD, MD - Primary No Additional Staff SURGERY/PROCEDURE(S): Bilateral PTN exchanges ANESTHESIA: Procedural Sedation FINDINGS: Successful exchanges ESTIMATED BLOOD LOSS: Minimal SPECIMENS: None COMPLICATIONS: None CLOSURE TECHNIQUE: Primary PRE-OP/PRE-PROCEDURE DIAGNOSIS: Hydronephrosis POST-OP/POST-PROCEDURE DIAGNOSIS: Same as Preop SIGNATURE: Rocío Palmer MD PATIENT NAME: Todd Delong DATE: June 15, 2025 TIME: 10:41 AM [facility] IR EXCHANGE NEPH TUBE BILATo n 06-15-2025 IR EXCHANGE NEPH TUBE BILAT * * *Final Report* * * DATE OF EXAM: Jun 15 2025 10:34AM [id number] - IR EXCHANGE NEPH TUBE BILAT / PROCEDURE REASON: hydronephrosis * * * * Physician Interpretation * * * * PROCEDURE: GENITOURINARY CATHETER EXCHANGE Procedural Personnel Attending physician(s): Rocío Palmer MD Fellow physician(s): None Resident physician(s): None Advanced practice provider(s): None Medical Student(s): None Pre-procedure diagnosis: Hydronephrosis Post-procedure diagnosis: Same Indication: Routine scheduled exchange Additional clinical history: None PROCEDURE SUMMARY - Target organ: Bilateral [place] kidneys - Antegrade nephrostogram(s) via the existing [...] and procedure-specific equipment needs. Start of procedure: 10:20 AM End of procedure: 10:27 AM Patient position: Prone Preparation: The site was prepared and draped using all elements of maximal sterile barrier technique including sterile gloves, sterile gown, cap, mask, large sterile sheet, hand hygiene and cutaneous antisepsis. Antibiotics: Cefazolin Antibiotic infusion start time: N/A Prophylactic antibiotic administered: Within 1 hour of procedure start time or 2 hours for vancomycin or fluoroquinolones Contrast Contrast agent: Visipaque 270 Contrast volume (mL): 10 Image Guidance: Fluoroscopic guidance. Radiation Dose FLUOROSCOPIC RADIATION SUMMARY: Plane A, Air Kerma: 10.6 mGy Fluoro Time: 0.9 min:sec Radiation dose exceed 5 Gy: No If radiation dose exceeded 5 Gy, was counseling and instructional brochure provided: N/A Anesthesia/sedation Level of anesthesia/sedation: Moderate sedation (conscious sedation) Anesthesia/sedation administered by: Independent trained observer under attending supervision with continuous monitoring of the patient?s level of consciousness and physiologic status Total intra-service sedation time (minutes): 7 Local anesthesia: Lidocaine Right genitourinary catheter exchange Local anesthesia was administered. Initial nephrostogram was performed. A wire was placed through the existing tube and it was removed. The new tube was advanced over the wire and position was confirmed with contrast injection. Pre-existing genitourinary catheter: 8 Burkinan skater catheter Genitourinary catheter(s) placed: 8 Burkinan skater catheter Findings: Adequately positioned nephrostomy catheter External catheter securement: Non-absorbable suture Left genitourinary catheter exchange Local anesthesia was administered. Initial nephrostogram was performed. A wire was placed through the existing tube and it was removed. The new tube was advanced over the wire and position was confirmed with contrast injection. Pre-existing genitourinary catheter: 8 Burkinan skater catheter Genitourinary catheter(s) placed: 8 Burkinan skater catheter Findings: Adequately positioned nephrostomy catheter External catheter securement: Non-absorbable suture Additional Details Additional description of procedure: None Equipment details: None Estimated blood loss (mL): Less than 10 Number and Type of Removed Specimens: 0: N/A Standardized report: [email or web address] Complications There were no immediate complications and no other complications. Conclusion The patient was comfortable and was transferred to the recovery room in stable condition. The procedure was performed by the: attending radiologist, without an inventory assistant. The attending radiologist performed the following procedural activities: Entire procedure IMPRESSION: UNEVENTFUL EXCHANGE OF GENITOURINARY CATHETER(S) PLAN: Catheter may be allowed to drai (more content not included)... [facility] NURSING PROGon 06-09-2025 NURSING PROG HNO ID: [id number] Author: SAMANTA PAGE RN Service: Nursing Author Type: Registered Nurse Type: Nursing Progress Note Filed: 06/09/2025 14:13 Note Text: -- Summary: Pre-Op instructions for 06-15-25 -- Please call [phone] to confirm you have received the below instructions for your upcoming radiology procedure. You are scheduled for a Bilateral Nephrostomy Tube Exchange, on Sunday June 15, 2025 at [facility] You are to arrive at 0830 am Access to [facility] (the [facility]) is located on [address] [place] [address]. [employer] parking is available for your convenience from 5am-5pm- there is a charge for this service. Take the elevators directly inside the entrance to the 1st Floor Surgery Lobby. Sign in at the podium located to the left when you get off the elevators. A payment may be expected at the time of service. One visitor may come back to the preoperative area with you. The preoperative staff will be reviewing your medical history, please let them know if you prefer not to have a visitor with you during this time. Once you are ready for your procedure, two visitors at a time are permitted in your preprocedure room. If Pre Procedure instructions are not followed your procedure may be cancelled or rescheduled. Life Sciences Instructor/Transportation: You will need a escort vehicle driver for your procedure. You will need a responsible adult to accompany you to and from the procedure. We suggest that a responsible individual stay with you after your procedure and overnight. Diet: Do not eat solid food after midnight the night before your procedure. You may have only water until your arrival time. Medications: Please take prescribed medications such as heart, blood pressure, anti-seizure, and chronic pain medications with a sip of clear liquids. Bring your current medication list. Contrast Dye Allergy: Do you have a contrast dye allergy? No allergy confirmed with patient Please bring the following: Valid Drivers License or State ID Insurance cards Glasses to review AND sign forms Other Instructions Leave valuables AND jewelry at home Wear loose comfortable clothing If you have any questions please call [phone] This phone line is monitored M-F from 8AM to 3PM Medication pumps: Insulin pumps must be removed before entering the procedure room. Do you wear any medication devices such as Neulasta Onpro? No If yes, the device must be removed before entering the procedure room. Do you use home oxygen, CPAP or BPAP? No Do you use any assistive devices such as a cane, or walker? No Do you need a world language teacher? No Normal [facility] [id number] 04-20-2025 [id number] HNO ID: [id number] Author: SAMANTA PAGE RN Service: ? Author Type: Registered Nurse Type: [id number] Filed: 04/20/2025 10:41 Note Text: After Placement of a Nephrostomy Tube What is a nephrostomy tube? A nephrostomy tube is a slender, hollow, flexible tube with several small holes along the sides. It is inserted into your kidney where urine is formed. The tube helps drain the urine when a blockage prevents its natural flow to the bladder. The tube has an external drain that is used to drain urine outside the body to a bag. What is a nephroureteral tube? A nephroureteral tube is a slender, hollow, flexible tube that helps restore the natural flow of urine from the kidney to the bladder. The tube has an external drain that may be used to drain urine outside the body to a bag if needed. What is a ureteral stent? A ureteral stent is a slender, hollow, flexible tube that drains urine from the kidney to the bladder. There is no tube or bag outside the body. Driving It is unsafe for you to drive after the procedure. A responsible adult must drive you home when you are discharged. You may drive the day after your procedure, unless instructed otherwise. Diet You may resume your normal diet after the procedure. Drink at least 6 to 8 glasses of fluid per day while your tube is in place, or as directed by your doctor. Activity Rest when you get home after the procedure. We recommend a responsible adult stay with you overnight after the procedure. Avoid lying or sleeping on your back to prevent kinking of the tube. You may resume your normal activities 24 hours after the procedure. At-Home Instructions Medications Continue taking all of your prescribed medicines after the procedure unless instructed otherwise by your doctor. You may take acetaminophen (Tylenol?) as needed to relieve discomfort unless allergic or told not to take Tylenol. Follow the directions on the package labeling and never exceed the recommended dose. Bathing and showering guidelines You may shower. DO NOT swim or soak in water. Site care Keep the dressing that is over the tube site clean and dry. You may have a stitch holding your tube in place. If the stitch breaks, call your doctor. Your tube may have a lock that holds it in place. Do not open the lock. Always keep the bag below the tube site to allow proper drainage by gravity. Your dressing should be changed every other day or sooner if it becomes wet, soiled, falls off, or unless instructed otherwise. It is easier if someone helps you change the dressing. Change the drainage bag monthly. You may have a special device used to secure your tube. If it comes off, you may replace it with a rolled gauze dressing (see below). It is important that the tube remain in the proper position and does not become kinked. To change your dressing: Gather supplies ? Four (4) gauze dressings ? Tape ? Scissors ? Mild soap and water to wash around tube ? Paper towels ? Soap or hand finance administrator to wash hands Prepare new dressing ? Have a clean surface for your supplies. ? Wash your hands. ? Tear five (5) strips of tape the size needed to cover the dressing. To make the tape easier to work with, hang the strips off an edge (for example, edge of a table) and keep them close by. ? Take one (1) gauze dressing and cut a slit from the folded edge to the center of the gauze. ? Take another gauze dressing and roll it into the shape of a log. To prevent the dressing from unrolling, wrap a piece of tape around it. Remove old dressing ? Remove and throw away the old dressing. Be careful not to pull on the tube or your skin. ? Inspect the insertion site for signs of leakage, redness, drainage, foul odor, or swelling. ? Wash hands again. ? Gently wash around the tube with mild soap and water and pat dry. ? Clean the outside of the drainage tubing and bag using a damp cloth. Apply the new dressing ? Take the pre-cut gauze dressing and gently slide it around tube. ? Carefully place the dressing roll under the tube to prevent kinking at the insertion site. ? Cover the pre-cut gauze dressing, roll, and tube, with the remaining two gauze dressings. ? Secure the dressings with tape. Do not tape the tube directly on the skin. Watch for the following: Wet dressing Pain in your back or sides Little or no urine drainage If you have any of the above signs or symptoms, follow these steps: If your tube is already attached to a drainage bag, remove your dressing and check to see if the tube is kinked. If the tube is kinked, straighten the tube until fluid begins to flow. If fluid does not drain after removing the kink in the tube, you may need to gently flush the tube. If your tube is capped attach a drainage bag. Be sure the drainage bag is below the level of the tube site. Flushing your tube If your tube stops draining it may be blocke (more content not included)... [facility] BRIEF OP NOTon 04-20-2025 BRIEF OP NOT HNO ID: [id number] Author: GHULAM RIVERA DO Service: Interventional Radiology Author Type: Physician Type: Brief Op Note Filed: 04/20/2025 10:52 Note Text: BRIEF OPERATIVE / PROCEDURE NOTE LOG ID: [id number] SURGERY/PROCEDURE DATE: 04/20/2025 INCISION/PROCEDURE START TIME: 10:32 AM INCISION CLOSE/PROCEDURE END TIME: 10:42 AM SURGEON(S)/PROCEDURALIST(S ) AND MAMMALOGIST(S): Surgeons and Role: * Ghulam Rivera DO - Primary No Additional Staff SURGERY/PROCEDURE(S): Bilateral nephrostomy exchange ANESTHESIA: Procedural Sedation FINDINGS: Bilateral 10F nephrostomy tubes exchanged without issue. Please refer to full dictated radiology report for further details. ESTIMATED BLOOD LOSS: 0 ml SPECIMENS: None COMPLICATIONS: None PRE-OP/PRE-PROCEDURE DIAGNOSIS: Hydronephrosis POST-OP/POST-PROCEDURE DIAGNOSIS: Same as Preop SIGNATURE: Ghulam Rivera DO PATIENT NAME: Todd Delong DATE: April 20, 2025 TIME: 10:51 AM [facility] IR EXCHANGE NEPH TUBE BILATo n 04-20-2025 IR EXCHANGE NEPH TUBE BILAT * * *Final Report* * * DATE OF EXAM: Apr 20 2025 10:45AM [id number] - IR EXCHANGE NEPH TUBE [...] None PROCEDURE SUMMARY - Target organ: Bilateral [place] kidneys - Antegrade nephrostogram(s) via the existing [...] and procedure-specific equipment needs. Start of procedure: 1032 End of procedure: 1042 Patient position: Prone Preparation: The site was prepared and draped using all elements of maximal sterile barrier technique including sterile gloves, sterile gown, cap, mask, large sterile sheet, hand hygiene and cutaneous antisepsis. Antibiotics: None Antibiotic infusion start time: N/A Prophylactic antibiotic administered: None Additional med: None Additional med: None Contrast Contrast agent: Visipaque 270 Contrast volume (mL): 16 Image Guidance: Fluoroscopic guidance. Radiation Dose FLUOROSCOPIC RADIATION SUMMARY: Plane A, Air Kerma: 2.0 mGy Dose Area Product (DAP): Fluoro Time: 0:12 min:sec Radiation dose exceed 5 Gy: No If radiation dose exceeded 5 Gy, was counseling and instructional brochure provided: N/A Anesthesia/sedation Level of anesthesia/sedation: No sedation Anesthesia/sedation administered by: Not applicable Total intra-service sedation time (minutes): 0 Local anesthesia: 1 % lidocaine Right genitourinary catheter exchange Local anesthesia was administered. Initial nephrostogram was performed. A wire was placed through the existing tube and it was removed. The new tube was advanced over the wire and position was confirmed with contrast injection. Pre-existing genitourinary catheter: 10 F argon skater nephrostomy Genitourinary catheter(s) placed: 10 F argon skater nephrostomy Findings: Moderate hydronephrosis External catheter securement: Non-absorbable suture Left genitourinary catheter exchange Local anesthesia was administered. Initial nephrostogram was performed. A wire was placed through the existing tube and it was removed. The new tube was advanced over the wire and position was confirmed with contrast injection. Pre-existing genitourinary catheter: 10 F argon skater nephrostomy Genitourinary catheter(s) placed: 10 F argon skater nephrostomy Findings: Moderate hydronephrosis External catheter securement: Non-absorbable suture Additional [...] performed by the: attending radiologist, without an inventory assistant. The attending radiologist performed the following procedural activities: Entire procedure IMPRESSION: UNEVENTFUL EXCHANGE OF GENITOURINARY CATHETERS PLAN: (more content not included)... [facility] IR FLOURO GUID NEEDLE PLCon 04-20-2025 IR FLOURO GUID NEEDLE PLC * * *Final Report* * * DATE OF EXAM: Apr 20 2025 10:45AM [id number] - IR FLOURO GUID NEEDLE PLC / PROCEDURE REASON: * * * * Physician Interpretation * * * * PROCEDURE: GENITOURINARY CATHETER EXCHANGE Procedural Personnel Attending physician(s): Ghulam Rivera D.O. Fellow physician(s): None Resident physician(s): None Advanced practice provider(s): None Medical Student(s): None Pre-procedure diagnosis: Hydronephrosis Post-procedure diagnosis: Same Indication: Routine scheduled exchange Additional clinical history: None PROCEDURE SUMMARY - Target organ: Bilateral [place] kidneys - Antegrade nephrostogram(s) via the existing [...] and procedure-specific equipment needs. Start of procedure: 1032 End of procedure: 1042 Patient position: Prone Preparation: The site was prepared and draped using all elements of maximal sterile barrier technique including sterile gloves, sterile gown, cap, mask, large sterile sheet, hand hygiene and cutaneous antisepsis. Antibiotics: None Antibiotic infusion start time: N/A Prophylactic antibiotic administered: None Additional med: None Additional med: None Contrast Contrast agent: Visipaque 270 Contrast volume (mL): 16 Image Guidance: Fluoroscopic guidance. Radiation Dose FLUOROSCOPIC RADIATION SUMMARY: Plane A, Air Kerma: 2.0 mGy Dose Area Product (DAP): Fluoro Time: 0:12 min:sec Radiation dose exceed 5 Gy: No If radiation dose exceeded 5 Gy, was counseling and instructional brochure provided: N/A Anesthesia/sedation Level of anesthesia/sedation: No sedation Anesthesia/sedation administered by: Not applicable Total intra-service sedation time (minutes): 0 Local anesthesia: 1 % lidocaine Right genitourinary catheter exchange Local anesthesia was administered. Initial nephrostogram was performed. A wire was placed through the existing tube and it was removed. The new tube was advanced over the wire and position was confirmed with contrast injection. Pre-existing genitourinary catheter: 10 F argon skater nephrostomy Genitourinary catheter(s) placed: 10 F argon skater nephrostomy Findings: Moderate hydronephrosis External catheter securement: Non-absorbable suture Left genitourinary catheter exchange Local anesthesia was administered. Initial nephrostogram was performed. A wire was placed through the existing tube and it was removed. The new tube was advanced over the wire and position was confirmed with contrast injection. Pre-existing genitourinary catheter: 10 F argon skater nephrostomy Genitourinary catheter(s) placed: 10 F argon skater nephrostomy Findings: Moderate hydronephrosis External catheter securement: Non-absorbable suture Additional [...] performed by the: attending radiologist, without an inventory assistant. The attending radiologist performed the following procedural activities: Entire procedure IMPRESSION: UNEVENTFUL EXCHANGE OF GENITOURINARY CATHETERS PLAN: C (more content not included)... [facility] NURSING PROGon 04-20-2025 NURSING PROG HNO ID: [id number] Author: KIKE BO RN Service: ? Author Type: Registered Nurse Type: Nursing Progress Note Filed: 04/20/2025 11:23 Note Text: Upon arrival to Same Day Phase 2, patient meets criteria for discharge. Second assessment not completed. Instructions reviewed and PIV removed. Family sent for car. [facility] NURSING PROG HNO ID: [id number] Author: KIKE BO RN Service: ? Author Type: Registered Nurse Type: Nursing Progress Note Filed: 04/20/2025 11:22 Note Text: Fall risk designation communicated in handoff. Individualized high fall risk precautions reviewed and in use. Reinforced educaton of patient to call for help prior to getting out of bed, requesting a family member be present when patient changes clothes, and cooperation requested of patient/family with fall risk interventions. [facility] NURSING PROG HNO ID: [id number] Author: NALINI FLETCHER RN Service: Nursing Author Type: Registered Nurse Type: Nursing Progress Note Filed: 04/20/2025 08:20 Note Text: Individualized high fall risk precautions in use. Fall risk signage posted at nurses' station. Fall risk designation communicated in handoff. Reinforced education of patient to call for help prior to getting out of bed, requesting a family member be present when patient changes clothes, and cooperation requested of patient/family with fall risk interventions. [facility] NURSING PROGon 04-16-2025 NURSING PROG HNO ID: [id number] Author: GENESIS ORELLANA RN Service: Radiology Author Type: Registered Nurse Type: Nursing Progress Note Filed: 04/16/2025 09:50 Note Text: PRE-PROCEDURE INSTRUCTIONS TO PREPARE FOR YOUR PROCEDURE: Your arrival time for your procedure is 8:30, 04/20/25. Do NOT eat any solid foods after MIDNIGHT the night prior to your procedure - this includes gum or mints. Shower the morning of the procedure, put on clean clothes, and have clean sheets for your bed to help prevent infection after your procedure. Leave all valuables such as jewelry including rings, piercings, wallets, and purses at home. Wear comfortable, loose-fitting clothing. If you wear glasses or contacts, please bring a case. SPECIAL INSTRUCTIONS: If instructed, bring your first voided urine specimen with you. If you were provided skin preparation to use prior to your procedure, complete this as directed. If you use crutches or a walker, bring them with you. If you have a home CPAP/BIPAP machine, bring it with you. If you were instructed to complete a fleets enema or bowel prep, complete as directed. Bring copy of Living Will/Power of Public Works Manager. Do not smoke or chew. If you use tobacco, quit or at least cut down before surgery. Do not smoke or chew after midnight the day before your surgery. This effects bleeding, infection, healing, and so much more. Do not take any Diet or Herbal Supplements 2 weeks prior to your surgery date. Please notify your physician if there is any change in your physical condition such as a cold, cough, fever, sore throat, or skin irritation near the surgical site. Visitors under the age of 14 are restricted in the Surgery Center. UPON ARRIVAL: Access to [facility] (the [facility]) is located on [address] [employer] parking is available for your convenience from 5am-5pm- there is a $5.00 charge for this service. Take the elevators directly inside the entrance to the 1st Floor Surgery Lobby. Sign in at the podium located to the left when you get off the elevators. A payment may be expected at the time of service. One visitor may come back to the preoperative area with you. The preoperative staff will be reviewing your medical history, please let them know if you prefer not to have a visitor with you during this time. Once you are ready for your procedure, two visitors at a time are permitted in your preprocedure room. [facility] Anion gap in Serum or Plasma Ordered By: Luz Maria Matthews on 04-15-2025 Anion gap [Moles/Vol] 11 mmol/L 5-15 [facility] BUN/creatinine ratioOrdered By: Luz Maria Matthews on 04-15-2025 Urea nitrogen/Creatinine [Mass ratio] 9.6 mg/mg Low 10-20 [facility] Carbon dioxide, total [Moles /volume] in Central venous bloodOrdered By: Luz Maria Matthews on 04-15-2025 CO2 [Moles/Vol] 25.3 mmol/L 21.0-32.0 [facility] Chloride assayOrdered By: Rashid Matthews on 04-15-2025 Chloride [Moles/Vol] 103 mmol/L 98-108 [facility] Glomerular filtration rate ( GFR) estimation/1.73 sq m using serum, plasma, or whole bOrdered By: Luz Maria Matthews on 04-15-2025 GFR/1.73 sq M.predicted among non-blacks MDRD (S/P/Bld) [Vol rate/Area] 27 mL/min/{1.73_m2} Low >60 [facility] Comment on above: mL/min/1.73m2 CKD-EP I Creatinine Equation (2020) Potassium measurement (mass/ volume)Ordered By: Luz Maria Matthews on 04-15-2025 Potassium (Unsp spec) [Mass/Vol] 4.8 mmol/L 3.3-5.1 [facility] Serum creatinine measurement (mass/volume)Ordered By: Luz Maria Matthews on 04-15-2025 Creatinine [Mass/Vol] 1.95 mg/dL High 0.70-1.20 [facility] Serum glucose measurement (m ass/volume)Ordered By: Luz Maria Matthews on 04-15-2025 Glucose [Mass/Vol] 104 mg/dL High 70-99 [facility] Serum or plasma albumin yunior urement (mass/volume)Ordered By: Luz Maria Matthews on 04-15-2025 Albumin [Mass/Vol] 3.7 g/dL 3.4-4.8 [facility] Serum or plasma calcium yunior urement (mass/volume)Ordered By: Luz Maria Matthews on 04-15-2025 Calcium [Mass/Vol] 9.3 mg/dL 7.6-11.0 [facility] Serum or plasma urea nitroge n measurement (mass/volume)Ordered By: Luz Maria Matthews on 04-15-2025 Urea nitrogen [Mass/Vol] 19 mg/dL 4-19 [facility] Sodium levelOrdered By: Davida Matthews on 04-15-2025 Sodium [Moles/Vol] 139 mmol/L 133-145 [facility] Influenza virus A and B and SARS-CoV-2 (COVID-19) and Respiratory syncytial virus RNAOrdered By: Gerardo García on 03-20-2025 SARS-CoV-2 (COVID-19) RNA BOBBI+probe Ql (Unsp spec) [facility] BRIEF OP NOTon 02-23-2025 BRIEF OP NOT HNO ID: [id number] Author: CHEIKH HIGH MD Service: Radiology Author Type: Physician Type: Brief Op Note Filed: 02/23/2025 10:49 Note Text: INTERVENTIONAL RADIOLOGY POST PROCEDURE NOTE DATE: 02/23/25 NAME: Todd Delong LOG ID: [id number] Pre-Procedure Diagnosis: Cervical cancer, bilateral ureteral obstruction and bilateral nephrostomy tubes, presents for routine exchange. Post Procedure Diagnosis: Same. [employer] Wire Weaver: Dr. Cheikh High Procedure: Image guided bilateral nephrostomy tube exchange Anesthesia: Local Findings: Successful exchange of bilateral nephrostomy tubes, new 10 Burkinan nephrostomy tubes placed. Estimated Blood Loss: Minimal (Less Than 25 mL). Specimen: None Complications: None Full report with procedural details to follow and will become available under Imaging Reports. Please contact for any questions or concerns. SIGNATURE: Cheikh High MD PATIENT NAME: Todd Delong DATE: February 23, 2025 TIME: 10:48 AM PAGER/CONTACT #: [facility] IR EXCHANGE NEPH TUBE BILATo n 02-23-2025 IR EXCHANGE NEPH TUBE BILAT * * *Final Report* * * DATE OF EXAM: Feb 23 2025 10:55AM [facility]HA [id number] - IR EXCHANGE NEPH TUBE BILAT / PROCEDURE REASON: Hydronephrosis * * * * Physician Interpretation * * * * PROCEDURE: BILATERAL ANTEGRADE NEPHROSTOGRAM WITH PERCUTANEOUS NEPHROSTOMY TUBE EXCHANGE DATE: 02/23/2025 10:55 AM INDICATION: Cervical cancer and bilateral ureteral obstruction, status post bilateral nephrostomy tube placement. Patient presents for routine exchange. ENCOUNTER: Initial COMPARISON: X-ray examination of the abdomen dated 01/27/2025. Imaging from bilateral nephrostomy tube exchange performed on 01/12/2025. TECHNIQUE/FINDINGS: The procedure was performed in the VIR Suite following informed consent and a Time Out. Informed consent was obtained from the patient. Patient monitoring: Supervised observer The skin sites of the indwelling percutaneous nephrostomy tubes were prepped and draped using all elements of maximal sterile barrier technique (cap, mask, sterile gown, sterile gloves, a large sterile sheet, hand hygiene and cutaneous antisepsis). 2 g Ancef was administered for antibiotic prophylaxis. Left antegrade nephrostogram was performed via the indwelling nephrostomy tube assess for positioning and opacification of the renal collecting system. Nephrostomy tube was noted to be displaced into inferior pole infundibulum. Following this, the tube was cut at the skin site and an Amplatz guidewire was advanced via the tube into the left renal collecting system. The indwelling nephrostomy tube was removed and a new 10 Burkinan nephrostomy tube was advanced over the Amplatz wire into the renal pelvis. Contrast was injected to confirm appropriate positioning within the renal collecting system. Tube was then secured to the skin site with 2-0 suture. Procedure was duplicated on the right with placement of new 10 Burkinan right-sided percutaneous nephrostomy tube with cope loop formed within the right renal pelvis. The nephrostomy tube was secured the skin site with 2-0 suture. Patient tolerated the procedure well without immediate complication. Nephrostomy tubes were placed to gravity bag. Fluoroscopic Radiation Summary: Fluoro time: 1:00 min:sec Plane A, Air Kerma: 19 mGy 59 fluoroscopic images were obtained and placed in the PACS system. FINDINGS: Left-sided percutaneous nephrostomy tube displaced into inferior pole infundibulum. Successful image guided exchange of bilateral nephrostomy tubes. New 10 Burkinan nephrostomy tubes were placed bilaterally with cope loops formed within the renal pelvis. IMPRESSION: Successful image guided exchange of bilateral percutaneous nephrostomy tubes, as described above. Plan for routine exchange in 8 weeks. Field Sales Executive: [employer] Transcribe Date/Time: Feb 24 2025 7:01A Dictated by : CHEIKH HIGH MD This examination was interpreted and the report reviewed and electronically signed by: CHEIKH HIGH MD on Feb 24 2025 7:05AM EST [id number] [facility] Absolute lymphocyte countOrd ered By: Gerardo García on 02-02-2025 Lymphocytes Auto (Unsp spec) [#/Vol] 4.84 10*3/uL High 0.83-4.51 [facility] Absolute neutrophil countOrd ered By: Gerardo García on 02-02-2025 Neutrophils (Bld) [#/Vol] 4.1 10*3/uL 2.0-7.7 [facility] Anion gap in Serum or Plasma Ordered By: Gerardo García on 02-02-2025 Anion gap [Moles/Vol] 12 mmol/L 5-15 [facility] Automated lymphocyte count a s percentage of total leukocytesOrdered By: Gerardo García on 02-02-2025 Lymphocytes/100 WBC Auto (Unsp spec) 48.9 % High 19-41 [facility] BUN/creatinine ratioOrdered By: Gerardo García on 02-02-2025 Urea nitrogen/Creatinine [Mass ratio] 11.1 mg/mg 10-20 [facility] Basophil percentageOrdered B y: Gerardo García on 02-02-2025 Basophils/100 WBC (Bld) 0.6 % 0-1 [facility] Bilirubin, totalOrdered By: Gerardo García on 02-02-2025 Bilirubin [Mass/Vol] 0.42 mg/dL 0.00-1.30 [facility] Calculated very low density lipoprotein (VLDL) cholesterol measurementOrdered By: Gerardo García on 02-02-2025 Calculated very low density lipoprotein (VLDL) cholesterol measurement 25 mg/dL 5-40 [facility] VLDL Cholesterol 25 mg/dL 5-40 [facility] Carbon dioxide, total [Moles /volume] in Central venous bloodOrdered By: Gerardo García on 02-02-2025 CO2 [Moles/Vol] 22.9 mmol/L 21.0-32.0 [facility] Chloride assayOrdered By: Lenny García on 02-02-2025 Chloride [Moles/Vol] 104 mmol/L 98-108 [facility] Eosinophil percentageOrdered By: Gerardo García 02-02-2025 Eosinophils/100 WBC (Bld) 1.3 % 0-5 [facility] Erythrocyte distribution wid th ratioOrdered By: Gerardo García on 02-02-2025 Erythrocyte distribution width (RBC) [Ratio] 13.4 % 11.6-14.6 [facility] Erythrocyte distribution wid th standard deviationOrdered By: Gerardo García 02-02-2025 Erythrocyte distribution width (RBC) [Entitic vol] 45.4 fL High 35.1-43.9 [facility] Erythrocyte distribution width (RBC) [Ratio] 45.4 fl High 35.1-43.9 [facility] GFR/1.73 sq M.predicted rachel g non-blacks MDRD (S/P/Bld) [Vol rate/Area]Ordered By: Gerardo García 02-02-2025 Estimated GFR (MDRD) Non-Af Amer 33 Low >60 [facility] Comment on above: mL/min/1.73m2 CKD-EP I Creatinine Equation (2020) Glomerular filtration rate ( GFR) estimation/1.73 sq m using serum, plasma, or whole bOrdered By: Gerardo García 02-02-2025 GFR/1.73 sq M.predicted among non-blacks MDRD (S/P/Bld) [Vol rate/Area] 33 mL/min/{1.73_m2} Low >60 [facility] Comment on above: mL/min/1.73m2 CKD-EP I Creatinine Equation (2020) Hematocrit Auto (Bld) [Volum e fraction]Ordered By: Gerardo García 02-02-2025 Hematocrit (Bld) [Volume fraction] 42.4 % 37-47 [facility] Hemoglobin measurementOrdere d By: Gerardo García 02-02-2025 Hemoglobin (Bld) [Mass/Vol] 13.2 g/dL 12.0-15.0 [facility] Immature granulocytes/100 WB C Auto (Bld)Ordered By: Gerardo García on 02-02-2025 Immature granulocytes/100 WBC (Bld) 0.200 % 0.0-0.9 [facility] Comment on above: IG% - Immature Granu locytes (promyelocytes, myelocytes and metamyelocytes) > 1% indicates that a LEFT SHIFT is Present. LDL calc ser/plasOrdered By: Gerardo García on 02-02-2025 Cholesterol in LDL [Mass/Vol] 120 mg/dL [facility] Comment on above: Nnsixsoyfw=605-146 m g/dL & Higher Hxvg=546 mg/dL or greater LDL Cholesterol, Calculated 120 mg/dL [facility] Comment on above: Yoedgtgnjq=391-382 m g/dL & Higher Cogo=764 mg/dL or greater Laboratory - Chemistry and C hemistry - challengeOrdered By: Gerardo García on 02-02-2025 AST [Catalytic activity/Vol] 18 U/L <32 [facility] Comment on above: Hemolysis present, R esults could be affected. Lymphocytes Auto (Unsp spec) [#/Vol]Ordered By: Gerardo García on 02-02-2025 Lymphocytes (Bld) [#/Vol] 4.84 10*3/uL High 0.83-4.51 [facility] Lymphocytes/100 WBC Auto (Un sp spec)Ordered By: Gerardo García on 02-02-2025 Lymphocytes/100 WBC (Bld) 48.9 % High 19-41 [facility] MCV (mean corpuscular volume ) determinationOrdered By: Gerardo García on 02-02-2025 MCV (RBC) [Entitic vol] 91.4 fL 81-99 [facility] Mean corpuscular hemoglobin (MCH) determinationOrdered By: Gerardo García on 02-02-2025 MCH (RBC) [Entitic mass] 28.4 pg 27.0-32.0 [facility] Mean corpuscular hemoglobin concentration (MCHC) determinationOrdered By: Gerardo García on 02-02-2025 MCHC (RBC) [Mass/Vol] 31.1 g/dL Low 32-36 [facility] Mean platelet volume determi nationOrdered By: Gerardo García on 02-02-2025 Platelet mean volume (Bld) [Entitic vol] 10.0 fL 6.2-12.0 [facility] Monocyte percentageOrdered B y: Gerardo García on 02-02-2025 Monocytes/100 WBC (Bld) 8.0 % 0-10 [facility] Neutrophil percentageOrdered By: Gerardo García on 02-02-2025 Neutrophils/100 WBC (Bld) 41.0 % Low 47-70 [facility] Nucleated red blood cell per centageOrdered By: Gerardo García on 02-02-2025 Nucleated RBC/100 WBC (Bld) [Ratio] 0 % 0-5 [facility] Platelet countOrdered By: Lenny García on 02-02-2025 Platelets (Bld) [#/Vol] 353 10*3/uL 150-450 [facility] Potassium (Unsp spec) [Mass/ Vol]Ordered By: Gerardo García on 02-02-2025 Potassium [Moles/Vol] 4.2 mmol/L 3.3-5.1 [facility] Comment on above: Hemolysis present, R esults could be affected. Potassium measurement (mass/ volume)Ordered By: Gerardo García on 02-02-2025 Potassium (Unsp spec) [Mass/Vol] 4.2 mmol/L 3.3-5.1 [facility] Comment on above: Hemolysis present, R esults could be affected. RBC Auto (Bld) [#/Vol]Ordere d By: Gerardo García on 02-02-2025 RBC (Bld) [#/Vol] 4.64 10*6/uL 4.2-5.4 [facility] Screening total cholesterol/ high density lipoprotein (HDL) cholesterol ratioOrdered By: Gerardo aGrcía on 02-02-2025 Cholesterol.total/Choles terol in HDL [Mass ratio] 4.54 {ratio} [facility] Serum creatinine measurement (mass/volume)Ordered By: Gerardo García on 02-02-2025 Creatinine [Mass/Vol] 1.66 mg/dL High 0.70-1.20 [facility] Serum globulin measurementOr dered By: Gerardo García on 02-02-2025 Globulin (S) [Mass/Vol] 4.4 g/dL High 2.2-4.2 [facility] Serum glucose measurement (m ass/volume)Ordered By: Gerardo Ricky 02-02-2025 Glucose [Mass/Vol] 112 mg/dL High 70-99 [facility] Serum or plasma alanine masterson otransferase (ALT) measurementOrdered By: Gerardo García 02-02-2025 ALT [Catalytic activity/Vol] 7 U/L <35 [facility] Serum or plasma albumin yunior urement (mass/volume)Ordered By: Gerardo García 02-02-2025 Albumin [Mass/Vol] 3.6 g/dL 3.4-4.8 [facility] Serum or plasma albumin/glob ulin mass ratioOrdered By: Gerardo Ricky 02-02-2025 Albumin/Globulin [Mass ratio] 0.8 {ratio} Low 0.9-2.4 [facility] Serum or plasma alkaline terry sphatase measurementOrdered By: Gerardo García 02-02-2025 ALP [Catalytic activity/Vol] 129 U/L High 35-104 [facility] Serum or plasma calcium yunior urement (mass/volume)Ordered By: Gerardo Ricky 02-02-2025 Calcium [Mass/Vol] 9.0 mg/dL 7.6-11.0 [facility] Serum or plasma cholesterol in HDL measurement (mass/volume)Ordered By: Gerardo Ricky 02-02-2025 Cholesterol in HDL [Mass/Vol] 41 mg/dL >40 [facility] Comment on above: National Cholesterol Education Program (NCEP) guidelines:<40 mg/dL: Low HDL-cholesterol (major risk factor for CHD)>= 60 mg/dL: High HDL-cholesterol (negative risk factor for CHD)HDL-cholesterol is affected by a number of factors, e.g. smoking, exercise, hormones, sex and age. Serum or plasma cholesterol measurement (mass/volume)Ordered By: Gerardo Ricky 02-02-2025 Cholesterol [Mass/Vol] 186 mg/dL <201 [facility] Comment on above: Cholesterol level, D esirable <200 mg/dLBorderline high cholesterol 200-239 mg/dLHigh cholesterol >=240 mg/dLRecommendations of the NCEP Adult Treatment Panel for the following risk-cutoff thresholds for the [place] population. Serum or plasma urea nitroge n measurement (mass/volume)Ordered By: Gerardo García on 02-02-2025 Urea nitrogen [Mass/Vol] 19 mg/dL 4-19 [facility] Sodium levelOrdered By: Gerardo García on 02-02-2025 Sodium [Moles/Vol] 139 mmol/L 133-145 [facility] TSH DL <= 0.005 mIU/L QnOrde red By: Gerardo García on 02-02-2025 Thyroid Stimulating Hormone (TSH) 2.250 uIU/mL 0.300-4.20 0 [facility] TSH Qn 2.250 uIU/mL 0.300-4.20 0 [facility] Total proteinOrdered By: Gerardo García on 02-02-2025 Protein [Mass/Vol] 8.0 g/dL 5.9-8.4 [facility] Triglycerides measurementOrd ered By: Gerardo García on 02-02-2025 Triglyceride [Mass/Vol] 125 mg/dL <199 [facility] Comment on above: The drugs N-Acetylcy steine and Metamizole may falsely depress this assay. Normal range: <150 mg/dLBorderline High: 150-199 mg/dLHigh: 200-499 mg/dLVery High: >500 mg/dL Vitamin D, 25-hydroxyOrdered By: Gerardo García on 02-02-2025 Vitamin D 25-Hydroxy 28.9 ng/mL Low 30-100 [facility] Comment on above: Vitamin D StatusDefi ciency: <20 ng/mL (50nmol/L)Insufficiency: 20-30 ng/mL (50-75 nmol/L)Sufficiency: 30-100 ng/mL (75-250 nmol/L)Toxicity: >100 ng/mL (>250 nmol/L) White blood cell (WBC) count Ordered By: Gerardo García on 02-02-2025 WBC (Bld) [#/Vol] 9.9 10*3/uL 4.4-11.0 [facility] CNOVon 01-27-2025 CNOV Office Visit ([id number] 2) -- TODD DELONG ([id number]) 1950 F Date Time Provider Department 01/27/25 8:40 AM OBI RUFFIN [id number] During your visit today, we recorded the following information about you: Obi Ruffin APRN.TRANSITIONS RN CARE COORDINATOR 01/27/2025 3:19 PM Signed [facility] [place] [facility] [place] [facility] [place] [facility] [address] PATIENT NAME: Todd Delong DATE OF : 1950 TODAY'S DATE: 01/27/2025 CHIEF COMPLAINT: Patient presents with: Follow Up: Pt says she has pulled out left tube in back Assessment AND Plan: Assessment AND Plan Nephrostomy tube bleed (HCC) - no [...] MEDICAL HISTORY Diagnosis Date Arthritis Asthma no rand maker Benign paroxysmal positional vertigo Cancer (HCC) years ago, cervical, radiation Difficult intravenous access CAN ONLY USE RIGHT ARM H/O: Dunbar's palsy MANY YEARS AGO, 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 FAXED for copy Renal failure [...] Dr. 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, no longer follows with fitter/welder LX REMOVAL RENAL MASS NEPHROSTOMY TUBE ([place]) 2022 PAST SURGICAL HISTORY OF gallbladder PAST [...] Anaphylaxis Prednisone Unknown Only allergic to Methylprednisone [id number] Red* Anaphylaxis Medications Current Outpatient Medications Medication [...] URINARY DRAINAGE SYSTEM) misc 2 Bags, Miscell. (Med.Supl.;Non-Drugs), NEEDED Physical Exam Constitutional: In no acute distress. Well appearing. Genitourinary: Right PNT draining yellow urine. Left PNT draining yellow urine without bright red hematuria. No bilateral CVA/suprapubic tenderness. Imaging: CT - CT ABD/PEL WO IVCON Result Date: 12/05/2024 IMPRESSION: 1. Severe left-sided hydroureteronephrosis. 2. Right-sided percutaneous nephrostomy tube with no hydronephrosis. 3. Colonic diverticulosis. Field Sales Executive: [facility] Transcribe Date/Time: Dec 05 2024 4:36A Dictated by : JOSE ANTONIO FRIAS MD This (more content not included)... Normal [facility] XR ABDOMEN 1V SUPINEon 01-27 XR ABDOMEN 1V SUPINE * * *Final Report* * * DATE OF EXAM: Jan 27 2025 9:42AM RHX [id number] - XR ABDOMEN 1V SUPINE / PROCEDURE REASON: Nephrostomy tube bleed (HCC) * * * * Physician Interpretation * * * * XR ABDOMEN 1V SUPINE Ordering Physician: OBI RUFFIN Clinical Statement: Bilateral nephrostomy tubes FINDINGS: There are bilateral nephrostomy tubes present overlying the renal outlines. No visible breaks or kinks identified. Unremarkable bowel gas pattern. Vascular calcifications. No acute osseous abnormalities. IMPRESSION: Nephrostomy tubes overlying the kidneys bilaterally. No acute findings. Field Sales Executive: [facility] Transcribe Date/Time: Jan 29 2025 6:40A Dictated by : VIBHA GUTIERREZ MD This examination was interpreted and the report reviewed and electronically signed by: VIBHA GUTIERREZ MD on Jan 29 2025 6:42AM EST [id number] Normal [facility] Basic metabolic 2000 panelon 01-19-2025 Anion gap [Moles/Vol] 6 mmol/L Normal 5-16 [facility] Comment on above: Order Comment: Speci men Type: BLOOD SPECIMEN Ordering Facility: [facility] Address: [address] [place], [place] [address] [address] Performed By: #### S TFREV, [id number] #### [facility] CLIA [id number] [address] [place] [address] [place] Calcium [Mass/Vol] 9.1 mg/dL Normal 8.5-10.5 [facility] Comment on above: Order Comment: Speci men Type: BLOOD SPECIMEN Ordering Facility: [facility] Address: [address] [place] [address] Performed By: #### S TFREV, [id number] #### [facility] CLIA [id number] [address] [place] [address] [place] Chloride [Moles/Vol] 104 mmol/L Normal 98-107 [facility] Comment on above: Order Comment: Speci men Type: BLOOD SPECIMEN Ordering Facility: [facility] Address: [address] [place] [address] Performed By: #### S TFRCELESTINO, [id number] #### [facility] CLIA [id number] [address] [place] [address] [place] CO2 [Moles/Vol] 27 mmol/L Normal 21-32 [facility] Comment on above: Order Comment: Speci men Type: BLOOD SPECIMEN Ordering Facility: [facility] Address: [address] [place] [address] Performed By: #### S TFRCELESTINO, [id number] #### [facility] CLIA [id number] [address] [place] [address] [place] Creatinine [Mass/Vol] 1.53 mg/dL High 0.51-0.95 [facility] Comment on above: Order Comment: Speci men Type: BLOOD SPECIMEN Ordering Facility: [facility] Address: [address] [place] [address] Result Comment: Mayda ents receiving either N-Acetylcysteine (NAC) or Metamizole prior to venipuncture, may have falsely depressed results. Performed By: #### S TFREV, [id number] #### [facility] CLIA [id number] [address] [place] [address] [place] Creatinine and Glomerular filtration rate.predicted panel (S/P/Bld) 36 mL/min/1.73m??? Low >=60 [facility] Comment on above: Order Comment: Abdon lyles Type: BLOOD SPECIMEN Ordering Facility: [facility] Address: [address] [place] [address] Result Comment: Judith mated Glomerular Filtration Rate [...] accurately reflect actual GFR. Performed By: #### S SHAI, [id number] #### [facility] CLIA [id number] [address] [place] [address] [place] Glucose [Mass/Vol] 77 mg/dL Normal 70-100 [facility] Comment on above: Order Comment: Abdon lyles Type: BLOOD SPECIMEN Ordering Facility: [facility] Address: [address] [place] [address] Result Comment: The [place] Diabetes Association (ADA) provides guidance for cutoff values for fasting glucose and random glucose. The ADA defines fasting as no caloric intake for at least 8 hours. Fasting plasma glucose results between 100 to 125 mg/dL indicate increased risk for diabetes (prediabetes). Fasting plasma glucose results greater than or equal to 126 mg/dL meet the criteria for diagnosis of diabetes. In the absence of unequivocal hyperglycemia, results should be confirmed by repeat testing. In a patient with classic symptoms of hyperglycemia or hyperglycemic crisis, random plasma glucose results greater than or equal to 200 mg/dL meet the criteria for diagnosis of diabetes. Reference: Standards of Medical Care in Diabetes 2016, [place] [employer] Association. Diabetes Care. 2016.39(Suppl 1). Results may be falsely elevated after the administration of Sulfapyridine. Results may be falsely depressed after the administration of Sulfasalazine. Performed By: #### S TFRCELESTINO, 62115-0 #### [facility] CLIA [id number] [address] [place] [address] [place] Potassium [Moles/Vol] 4.2 mmol/L Normal 3.5-5.1 [facility] Comment on above: Order Comment: Abdon lyles Type: BLOOD SPECIMEN Ordering Facility: [facility] Address: [address] [place] [address] Performed By: #### S SHAI, 40509-1 #### [facility] CLIA [id number] [address] [place] [address] [place] Sodium [Moles/Vol] 137 mmol/L Normal 136-145 [facility] Comment on above: Order Comment: Abdon lyles Type: BLOOD SPECIMEN Ordering Facility: [facility] Address: [address] [place] [address] [place] [address] Performed By: #### S SHAI, 59561-0 #### [facility] CLIA [id number] [address] [place] [address] [place] Urea nitrogen [Mass/Vol] 23 mg/dL Normal 7-26 [facility] Comment on above: Order Comment: Abdon lyles Type: BLOOD SPECIMEN Ordering Facility: [facility] Address: [facility] [place] [address] Performed By: #### S SHAI, 44602-7 #### [facility] CLIA [id number] [address] [place] [address] [place] CNDSon 01-19-2025 CNDS HNO ID: [id number] Author: SONAM CERON MD Service: Hospital Medicine Author Type: Nurse Practitioner Type: Discharge Summary Filed: 01/19/2025 15:07 Note Text: -- Attestation signed by Sonam Ceron MD at 01/19/2025 3:07 PM Seen and examined. Doing fine, ID has cleared her for DC -- DISCHARGE SUMMARY PATIENT NAME: Todd Delong ADMISSION DATE: 01/12/2025 DISCHARGE DATE: January 19, 2025 Attending Physician: Sonam Ceron MD Code Status: Full Code Highest Readmission Risk Score: 30 The 30 day readmissions risk score is derived from an internally validated risk model which evaluates patient level characteristics, utilization history, medication orders and lab results up until the day of discharge. Patients with a score of 39 or above are considered highest risk for readmission. Specific patient level drivers will be listed at the bottom of the summary. Reason for Hospitalization: Principal Problem: Gram-negative bacteremia (POA: Yes) Resolved Problems: * No resolved hospital problems. * Sepsis (POA), due to gram-negative bacteremia most likely from urinary tract source. Obstructive uropathy, chronic bilateral hydronephrosis. Bilateral nephrostomy tubes. History of CKD Stage III Operations During Hospitalization: N/a Procedures During Hospitalization: Midline IV placement,chest xray, Hospital Course: Ms. Delong is a vinay 74 year old female patient with a history of asthma,hypertension, hypothyroidism, ovarian and cervical cancer status post radiation, Stage III CKD, and chronic hydroureter status post bilateral nephrostomy tube placement with recent exchange on January 12, 2025 who was admitted on January 13, 2025 for bacteremia,most likely from a urinary tract source after undergoing an outpatient bilateral nephrostomy tube exchange. Several hours following the procedure, the patient developed fevers and chills thus prompting her to seek a medical evaluation. Upon arrival to the emergency department, she was noted to be tachycardic with a heart rate in the 120s; otherwise stable. Labs pertinent for creatinine 2.02, WBC 13.6 otherwise grossly unremarkable. Urinalysis suggestive of infection versus contamination, however she does not have urinary symptoms and per chart review her UA is alwaysinterpreted as infected. 1 out of 2 blood cultures grew gram-positive cocci while her other blood culture grew gram-negative bacilli. Chest x-ray with no acute findings. The patient was administered empiric IV Rocephin during her course. Patient admitted to the hospital medicine team for gram-negative bacteremia. January 14, 2025- No acute overnight events were reported. This afternoon,the patient was found awake and alert, appearing in acute distress. She denies any chest pain, shortness of breath, nausea, and/or vomiting. Since admission, she has experienced several episodes of loose stools with no associated melena or hematochezia. Yesterday, she did not some hematuria following her procedure,none thus far today. Chills have subsided. No significant abdominal pain, cough or congestion have been reported; however, she admits to a clear runny nose. In the setting of gram negative bacteremia most likely from urinary tract source, she was evaluated by Dr. Mcmillan, infectious disease specialist, has been consulted. Currently, she is afebrile and hemodynamically stable. January 15, 2025- No acute overnight events were noted. Reports several loose bowel movements yesterday, none thus far today. Denies any chest pain, nausea, vomiting, chills, or hematuria. Oral temperature noted at 99.0.Mildly tachycardic on examination. Good urine output from bilateral nephrostomy tubes. No abdominal or CVA pain/discomfort noted. She remains on IV cefepime. Currently, she is hemodynamically stable. January 16, 2025- Patient found sitting up in bed, appearing in no acute distress. She denies chest pain, shortness of breath, nausea,and/or vomiting. Bilateral nephrostomy tubes are functioning with yellow urine noted in both. No hematuria noted. She admits to several loose stools today without any hematochezia or melena. Expanded stool panel was found to be negative. In the setting of Morganella bacteremia and PsA, the patient will warrant outpatient IV antibiotic therapy which will be arranged by ID Case management aware Midline has been ordered. January 17, 2025- Patient sitting up in bed chatting with a female farmer and grazier, appearing in no acute distress. Patient voices no complaints at this time. Yesterday, she underwent the placement of 3 [place] single lumen midline to the right upper extremity. Per case management, [facility] is able to provide the IV antibiotic; however case management is having difficulty finding a home heal (more content not included)... Normal [facility] Basic metabolic 2000 panelon 01-18-2025 Anion gap [Moles/Vol] 6 mmol/L Normal 5-16 [facility] Comment on above: Order Comment: Speci men Type: BLOOD SPECIMEN Ordering Facility: [facility] Address: [facility] [place] [address] Performed By: #### S TFREV, 62434-3 #### [facility] CLIA [id number] [address] [place] [address] [place] Calcium [Mass/Vol] 8.9 mg/dL Normal 8.5-10.5 [facility] Comment on above: Order Comment: Speci men Type: BLOOD SPECIMEN Ordering Facility: [facility] Address: [address] [place] [address] Performed By: #### S TFRCELESTINO, 49398-3 #### [facility] CLIA [id number] [address] [place] [address] [place] Chloride [Moles/Vol] 107 mmol/L Normal 98-107 [facility] Comment on above: Order Comment: Speci men Type: BLOOD SPECIMEN Ordering Facility: [facility] Address: [address] [place] [address] Performed By: #### S TFRCELESTINO, 06658-2 #### [facility] CLIA [id number] [address] [place] [address] [place] CO2 [Moles/Vol] 27 mmol/L Normal 21-32 [facility] Comment on above: Order Comment: Speci men Type: BLOOD SPECIMEN Ordering Facility: [facility] Address: [address] [place] [address] Performed By: #### S TFREV, 48311-3 #### [facility] CLIA [id number] [address] [place] [address] [place] Creatinine [Mass/Vol] 1.59 mg/dL High 0.51-0.95 [facility] Comment on above: Order Comment: Speci men Type: BLOOD SPECIMEN Ordering Facility: [facility] Address: [address] [place] [address] Result Comment: Mayda ents receiving either N-Acetylcysteine (NAC) or Metamizole prior to venipuncture, may have falsely depressed results. Performed By: #### S TFREV, 74791-6 #### [facility] CLIA [id number] [address] [place] [address] [place] Creatinine and Glomerular filtration rate.predicted panel (S/P/Bld) 34 mL/min/1.73m??? Low >=60 [facility] Comment on above: Order Comment: Abdon lyles Type: BLOOD SPECIMEN Ordering Facility: [facility] Address: [address] [place] [address] Result Comment: Judith mated Glomerular Filtration Rate [...] accurately reflect actual GFR. Performed By: #### S TFREV, 01870-0 #### [facility] CLIA [id number] [address] [place] [address] [place] Glucose [Mass/Vol] 89 mg/dL Normal 70-100 [facility] Comment on above: Order Comment: Abdon lyles Type: BLOOD SPECIMEN Ordering Facility: [facility] Address: [address] [place] [address] Result Comment: The [place] Diabetes [employer] (ADA) provides guidance for cutoff values for fasting glucose and random glucose. The ADA defines fasting as no caloric intake for at least 8 hours. Fasting plasma glucose results between 100 to 125 mg/dL indicate increased risk for diabetes (prediabetes). Fasting plasma glucose results greater than or equal to 126 mg/dL meet the criteria for diagnosis of diabetes. In the absence of unequivocal hyperglycemia, results should be confirmed by repeat testing. In a patient with classic symptoms of hyperglycemia or hyperglycemic crisis, random plasma glucose results greater than or equal to 200 mg/dL meet the criteria for diagnosis of diabetes. Reference: Standards of Medical Care in Diabetes 2016, [place] [employer]. Diabetes Care. 2016.39(Suppl 1). Results may be falsely elevated after the administration of Sulfapyridine. Results may be falsely depressed after the administration of Sulfasalazine. Performed By: #### S TFREV, 77160-2 #### [facility] CLIA [id number] [address] [place] [address] [place] Potassium [Moles/Vol] 3.8 mmol/L Normal 3.5-5.1 [facility] Comment on above: Order Comment: Speci men Type: BLOOD SPECIMEN Ordering Facility: [facility] Address: [address] [place] [address] Performed By: #### S TFREV, 04968-9 #### [facility] CLIA [id number] [address] [place] [address] [place] Sodium [Moles/Vol] 140 mmol/L Normal 136-145 [facility] Comment on above: Order Comment: Speci men Type: BLOOD SPECIMEN Ordering Facility: [facility] Address: [address] [place] [address] Performed By: #### S TFREV, 72037-4 #### [facility] CLIA [id number] [address] [place] [address] [place] Urea nitrogen [Mass/Vol] 22 mg/dL Normal 7-26 [facility] Comment on above: Order Comment: Speci men Type: BLOOD SPECIMEN Ordering Facility: [facility] Address: [address] [place] [address] Performed By: #### S TFREV, 39217-7 #### [facility] CLIA [id number] [address] [place] [address] [place] Magnesium SerPl-mCncon 01-18 Magnesium [Mass/Vol] 1.9 mg/dL Normal 1.6-2.6 [facility] Comment on above: Order Comment: Speci men Type: BLOOD SPECIMEN Ordering Facility: [facility] Address: [address] [place] [address] Performed By: #### S TFREV, 55740-9 #### [facility] CLIA [id number] [address] [place] [address] [place] Phosphate SerPl-mCncon 01-18 Phosphate [Mass/Vol] 3.9 mg/dL Normal 2.5-4.9 [facility] Comment on above: Order Comment: Speci men Type: BLOOD SPECIMEN Ordering Facility: [facility] Address: [address] [place] [address] Result Comment: Elev ated m-protein (paraprotein) levels in the serum may be exhibited in patients with monoclonal gammopathies, causing falsely elevated inorganic phosphorus results. Performed By: #### S TFREV, 22047-4 #### [facility] CLIA [id number] [address] [place], [place] [id number] [place] Basic metabolic 2000 panelon 01-17-2025 Anion gap [Moles/Vol] 8 mmol/L Normal 5-16 [facility] Comment on above: Order Comment: Speci men Type: BLOOD SPECIMENOrdering Facility: [facility] Address: [address] [place] [address] Performed By: #### 6 30-4, 09028-4 #### [facility] CLIA [id number] [address] [place] [address] [place] Calcium [Mass/Vol] 9.5 mg/dL Normal 8.5-10.5 [facility] Comment on above: Order Comment: Speci men Type: BLOOD SPECIMENOrdering Facility: [facility] Address: [address] [place] [address] Performed By: #### 6 30-4, 30029-6 #### [facility] CLIA [id number] [address] [place] [address] [place] Chloride [Moles/Vol] 107 mmol/L Normal 98-107 [facility] Comment on above: Order Comment: Speci men Type: BLOOD SPECIMENOrdering Facility: [facility] Address: [address] [place] [address] Performed By: #### 6 30-4, 68664-9 #### [facility] CLIA [id number] [address] [place], [place] [address] [place] CO2 [Moles/Vol] 24 mmol/L Normal 21-32 [facility] Comment on above: Order Comment: Speci rafal Type: BLOOD SPECIMENOrdering Facility: [facility] Address: [address] [place] [address] Performed By: #### 6 30-4, 46471-2 #### [facility] CLIA [id number] [address] [place] [address] [place] Creatinine [Mass/Vol] 1.64 mg/dL High 0.51-0.95 [facility] Comment on above: Order Comment: Speci men Type: BLOOD SPECIMENOrdering Facility: [facility] Address: [address] [place] [address] Result Comment: Mayda ents receiving either N-Acetylcysteine (NAC) or Metamizole prior to venipuncture, may have falsely depressed results. Performed By: #### 6 30-4, 07469-1 #### [facility] CLIA [id number] [address] [place] [address] OF [facility] Creatinine and Glomerular filtration rate.predicted panel (S/P/Bld) 33 mL/min/1.73m??? Low >=60 [facility] Comment on above: Order Comment: Abdon lyles Type: BLOOD SPECIMENOrdering Facility: [facility] Address: [address] [place] [address] Result Comment: Judith mated Glomerular Filtration Rate [...] accurately reflect actual GFR. Performed By: #### 6 30-4, 91456-3 #### [facility] CLIA [id number] [address] [place] [address] [place] Glucose [Mass/Vol] 91 mg/dL Normal 70-100 [facility] Comment on above: Order Comment: Abdon lyles Type: BLOOD SPECIMENOrdering Facility: [facility] Address: [address] [place] [address] Result Comment: The [place] Diabetes [employer] (ADA) provides guidance for cutoff values for fasting glucose and random glucose. The ADA defines fasting as no caloric intake for at least 8 hours. Fasting plasma glucose results between 100 to 125 mg/dL indicate increased risk for diabetes (prediabetes). Fasting plasma glucose results greater than or equal to 126 mg/dL meet the criteria for diagnosis of diabetes. In the absence of unequivocal hyperglycemia, results should be confirmed by repeat testing. In a patient with classic symptoms of hyperglycemia or hyperglycemic crisis, random plasma glucose results greater than or equal to 200 mg/dL meet the criteria for diagnosis of diabetes. Reference: Standards of Medical Care in Diabetes 2016, [place] [employer]. Diabetes Care. 2016.39(Suppl 1). Results may be falsely elevated after the administration of Sulfapyridine. Results may be falsely depressed after the administration of Sulfasalazine. Performed By: #### 6 30-4, 91143-0 #### [facility] CLIA [id number] [address] [place] [address] [place] Potassium [Moles/Vol] 4.0 mmol/L Normal 3.5-5.1 [facility] Comment on above: Order Comment: Speci men Type: BLOOD SPECIMENOrdering Facility: [facility] Address: [address] [place] [address] Performed By: #### 6 30-4, 95462-2 #### [facility] CLIA [id number] [address] [place] [address] [place] Sodium [Moles/Vol] 139 mmol/L Normal 136-145 [facility] Comment on above: Order Comment: Speci men Type: BLOOD SPECIMENOrdering Facility: [facility] Address: [address] [place] [address] Performed By: #### 6 30-4, 03819-0 #### [facility] CLIA [id number] [address] [place] [address] [place] Urea nitrogen [Mass/Vol] 20 mg/dL Normal 7-26 [facility] Comment on above: Order Comment: Speci men Type: BLOOD SPECIMENOrdering Facility: [facility] Address: [address] [place] [id number] Performed By: #### 6 30-4, 09895-9 #### [facility] CLIA [id number] [address] [place], [place] [address] [place] Magnesium SerPl-mCncon 01-17 Magnesium [Mass/Vol] 1.9 mg/dL Normal 1.6-2.6 [facility] Comment on above: Order Comment: Speci men Type: BLOOD SPECIMENOrdering Facility: [facility] Address: [facility] [place]Jose Antonio [place] [id number] Performed By: #### 6 30-4, 31696-0 #### [facility] CLIA [id number] [address] [place] [address] [place] Phosphate SerPl-mCncon 01-17 Phosphate [Mass/Vol] 4.0 mg/dL Normal 2.5-4.9 [facility] Comment on above: Order Comment: Speci men Type: BLOOD SPECIMENOrdering Facility: [facility] Address: [address] [place] [address] [place] [address] Result Comment: Elev ated m-protein (paraprotein) levels in the serum may be exhibited in patients with monoclonal gammopathies, causing falsely elevated inorganic phosphorus results. Performed By: #### 6 30-4, 91705-2 #### [facility] CLIA [id number] [address] [place] [address] [place] CBC panel Auto (Bld)on 01-16 Erythrocyte distribution width (RBC) [Ratio] 13.4 % Normal 11.5-15.0 [facility] Comment on above: Order Comment: Speci men Type: URINE SPECIMEN Ordering Facility: [facility] Address: [address] [place] [id number] Performed By: #### 6 30-4, 01312-7 #### [facility] CLIA [id number] [address] [place], [place] [address] [place] Hematocrit (Bld) [Volume fraction] 37.2 % Normal 36.0-46.0 [facility] Comment on above: Order Comment: Speci men Type: URINE SPECIMEN Ordering Facility: [facility] Address: [address] [place] [address] Performed By: #### 6 30-4, 41877-1 #### [facility] CLIA [id number] [address] [place] [address] [place] Hemoglobin (Bld) [Mass/Vol] 12.2 g/dL Normal 11.5-15.5 [facility] Comment on above: Order Comment: Speci men Type: URINE SPECIMEN Ordering Facility: [facility] Address: [address] [place] [address] Performed By: #### 6 30-4, 73113-4 #### [facility] CLIA [id number] [address] [place] [address] [place] MCH (RBC) [Entitic mass] 29.3 pg Normal 26.0-34.0 [facility] Comment on above: Order Comment: Speci men Type: URINE SPECIMEN Ordering Facility: [facility] Address: [address] [place] [address] Performed By: #### 6 30-4, 75932-9 #### [facility] CLIA [id number] [address] [place] [address] [place] MCHC (RBC) [Mass/Vol] 32.8 g/dL Normal 30.5-36.0 [facility] Comment on above: Order Comment: Speci men Type: URINE SPECIMEN Ordering Facility: [facility] Address: [address] [place] [address] Performed By: #### 6 30-4, 53622-2 #### [facility] CLIA [id number] [address] [place] [address] [place] MCV (RBC) [Entitic vol] 89.2 fL Normal 80.0-100.0 [facility] Comment on above: Order Comment: Speci men Type: URINE SPECIMEN Ordering Facility: [facility] Address: [address] [place] [address] Performed By: #### 6 30-4, 47837-2 #### [facility] CLIA [id number] [address] [place] [address] [place] Nucleated RBC (Bld) [#/Vol] 10*3/uL Normal <0.01 [facility] Comment on above: Order Comment: Speci men Type: URINE SPECIMEN Ordering Facility: [facility] Address: [address] [place] [address] Performed By: #### 6 30-4, 52305-9 #### [facility] CLIA [id number] [address] [place] [address] [place] Platelet mean volume (Bld) [Entitic vol] 9.6 fL Normal 9.0-12.7 [facility] Comment on above: Order Comment: Speci men Type: URINE SPECIMEN Ordering Facility: [facility] Address: [address] [place] [address] Performed By: #### 6 30-4, 44105-9 #### [facility] CLIA [id number] [address] [place] [address] [place] Platelets (Bld) [#/Vol] 279 10*3/uL Normal 150-400 [facility] Comment on above: Order Comment: Speci men Type: URINE SPECIMEN Ordering Facility: [facility] Address: [address] [place] [address] Performed By: #### 6 30-4, 48609-5 #### [facility] CLIA [id number] [address] [place] [address] [place] RBC (Bld) [#/Vol] 4.17 10*6/uL Normal 3.90-5.20 [facility] Comment on above: Order Comment: Speci men Type: URINE SPECIMEN Ordering Facility: [facility] Address: [address] [place] [address] Performed By: #### 6 30-4, 51033-5 #### [facility] CLIA [id number] [address] [place] [address] [place] WBC (Bld) [#/Vol] 8.19 10*3/uL Normal 3.70-11.00 [facility] Comment on above: Order Comment: Speci men Type: URINE SPECIMEN Ordering Facility: [facility] Address: [place] [address] Performed By: #### 6 30-4, 49307-0 #### [facility] CLIA [id number] [address] [place] [address] [place] CONSULT PROGon 01-16-2025 CONSULT PROG HNO ID: [id number] Author: PIYUSH MCMILLAN MD Service: Infectious Disease Author Type: Physician Type: Consult Progress Note Filed: 01/16/2025 10:37 Note Text: Infectious Disease SERVICE CONSULT PROGRESS NOTE SERVICE DATE: 01/16/2025 SERVICE TIME: 10:34 AM Subjective INTERVAL HPI: Feeling fine. No f/c. No GI upset. No issues with her neph tubes. Current Facility-Administered Medications Medication Dose Route Frequency NaCl 0.9% iv flush bag 20 mL INTRAVENOUS PRN heparin 5,000 Units injection 5,000 Units SUBCUTANEOUS q 8 H aluminum-magnesium hydroxide-simethicone 200-200-20 mg/5 mL 30 mL 30 mL ORAL DAILY PRN ondansetron 4 mg tab(s) (ZOFRAN) 4 mg ORAL q 6 H PRN Or ondansetron (PF) 4 mg injection (ZOFRAN) 4 mg INTRAVENOUS q 6 H PRN acetaminophen 650 mg tab(s) (TYLENOL) 650 mg ORAL q 6 H PRN morphine 2 mg injection 2 mg INTRAVENOUS q 4 H PRN amLODIPine 2.5 mg tab(s) (NORVASC) 2.5 mg ORAL DAILY potassium chloride ER 20 mEq tab(s) (KLOR-CON) 20 mEq ORAL DAILY pantoprazole DR 40 mg tab(s) (PROTONIX) 40 mg ORAL DAILY (6 AM) levothyroxine 25 mcg tab(s) (SYNTHROID) 25 mcg ORAL DAILY (6 AM) cefepime 1 g in D5W 100 mL Vial-Bag (MAXIPIME) 1 g INTRAVENOUS q 12 H Objective PHYSICAL EXAM: Physical Exam Performed: BP 129/68 Pulse 90 Temp (Src) 98.5 (Oral) Resp 14 Ht 5' 7 (1.70m) Wt 196 lb 6.9 oz (89.1kg) SpO2 95% BMI 30.76 kg/(m2). O2 Therapy: Room Air Alert, oriented, NAD RRR CTAB Abd soft, NT Bilateral nephrostomy tubes. DATA: Diagnostic tests reviewed for today's visit: CBC: Recent Labs 01/16/25 0530 WBC 8.19 RBC 4.17 HB 12.2 HCT 37.2 PLT 279 MCV 89.2 MCH 29.3 MPV 9.6 CMP: Recent Labs 01/16/25 0530 NA 140 K 4.0 CHLOR 109* CO2 24 BUN 25 CREAT 1.88* GLUC 90 TPROT 6.7 CA 8.7 MG 1.9 TBILI 0.4 ALKPHOS 117 ALT 17 AST 36* ANION 7 Impression/Recommendations Principal Problem: Sepsis (POA), due to gram-negative bacteremia most likely from urinary tract source. Obstructive uropathy, chronic bilateral hydronephrosis. Bilateral nephrostomy tubes. Morganella bacteremia - Sn reviewed. Urine culture grew PsA - Sn reviewed. Cultures were discussed with the microbiology lab. Will need to treat with IV antibiotics based on cx/sn data. Morganella resistant to cipro and other oral antibiotics. Continue cefepime with stop date of 01/24/2025. Will order midline IV. D/w case management. OK to discharge from ID standpoint once outpatient IV antibiotics arranged. Antimicrobial decision making based on review of culture and sensitivity data. Coordinating with the interdisciplinary team. SIGNATURE: Piyush Mcmillan MD PATIENT NAME: Todd Delong DATE: January 16, 2025 TIME: 10:34 AM Normal [facility] Comprehensive metabolic 2000 panelon 01-16-2025 Albumin [Mass/Vol] 2.7 g/dL Low 3.2-5.0 [facility] Comment on above: Order Comment: Speci men Type: URINE SPECIMEN Ordering Facility: [facility] Address: [address] [place] [address] Performed By: #### 6 30-4, 00626-6 #### [facility] CLIA [id number] [address] [place] [address] [place] ALP [Catalytic activity/Vol] 117 U/L Normal 45-117 [facility] Comment on above: Order Comment: Speci men Type: URINE SPECIMEN Ordering Facility: [facility] Address: [address] [place] [address] Performed By: #### 6 30-4, 10239-4 #### [facility] CLIA [id number] [address] [place] [address] [place] ALT [Catalytic activity/Vol] 17 U/L Normal 13-61 [facility] Comment on above: Order Comment: Speci men Type: URINE SPECIMEN Ordering Facility: [facility] Address: [address] [place] [address] Result Comment: Resu lts may be falsely depressed after the administration of Sulfasalazine and/or Sulfapyridine. Performed By: #### 6 30-4, 83699-5 #### [facility] CLIA [id number] [address] [place] [address] [place] Anion gap [Moles/Vol] 7 mmol/L Normal 5-16 [facility] Comment on above: Order Comment: Speci men Type: URINE SPECIMEN Ordering Facility: [facility] Address: [address] [place] [address] Performed By: #### 6 30-4, 93388-5 #### [facility] CLIA [id number] [address] [place] [address] [place] AST [Catalytic activity/Vol] 36 U/L High 8-34 [facility] Comment on above: Order Comment: Speci men Type: URINE SPECIMEN Ordering Facility: [facility] Address: [address] [place] [address] Result Comment: Resu lts may be falsely depressed after the administration of Sulfasalazine and/or Sulfapyridine. Performed By: #### 6 30-4, 88329-9 #### [facility] CLIA [id number] [address] [place], [place] [address] [place] Bilirubin [Mass/Vol] 0.4 mg/dL Normal 0.2-1.0 [facility] Comment on above: Order Comment: Speci men Type: URINE SPECIMEN Ordering Facility: [facility] Address: [address] [place] [address] Performed By: #### 6 30-4, 96767-9 #### [facility] CLIA [id number] [address] [place], [place] [address] [place] Calcium [Mass/Vol] 8.7 mg/dL Normal 8.5-10.5 [facility] Comment on above: Order Comment: Speci men Type: URINE SPECIMEN Ordering Facility: [facility] Address: [address] [place] [address] Performed By: #### 6 30-4, 44261-8 #### [facility] CLIA [id number] [address] [place], [place] [address] [place] Chloride [Moles/Vol] 109 mmol/L High 98-107 [facility] Comment on above: Order Comment: Speci men Type: URINE SPECIMEN Ordering Facility: [facility] Address: [address] [place] [address] Performed By: #### 6 30-4, 37771-4 #### [facility] CLIA [id number] [address] [place] [address] [place] CO2 [Moles/Vol] 24 mmol/L Normal 21-32 [facility] Comment on above: Order Comment: Speci men Type: URINE SPECIMEN Ordering Facility: [facility] Address: [address] [place] [address] Performed By: #### 6 30-4, 73559-2 #### [facility] CLIA [id number] [address] [place], [place] [address] [place] Creatinine [Mass/Vol] 1.88 mg/dL High 0.51-0.95 [facility] Comment on above: Order Comment: Speci men Type: URINE SPECIMEN Ordering Facility: [facility] Address: [address] [place] [address] Result Comment: Mayda ents receiving either N-Acetylcysteine (NAC) or Metamizole prior to venipuncture, may have falsely depressed results. Performed By: #### 6 30-4, 88422-4 #### [facility] CLIA [id number] [address] [place] [address] Creatinine and Glomerular filtration rate.predicted panel (S/P/Bld) 28 mL/min/1.73m??? Low >=60 [facility] Comment on above: Order Comment: Abdon lyles Type: URINE SPECIMEN Ordering Facility: [facility] Address: [address] [place] [address] Result Comment: Judith mated Glomerular Filtration Rate [...] accurately reflect actual GFR. Performed By: #### 6 30-4, 57889-3 #### [facility] CLIA [id number] [address] [place] [address] [place] Glucose [Mass/Vol] 90 mg/dL Normal 70-100 [facility] Comment on above: Order Comment: Abdon lyles Type: URINE SPECIMEN Ordering Facility: [facility] Address: [address] [place] [address] Result Comment: The [place] Diabetes [employer] (ADA) provides guidance for cutoff values for fasting glucose and random glucose. The ADA defines fasting as no caloric intake for at least 8 hours. Fasting plasma glucose results between 100 to 125 mg/dL indicate increased risk for diabetes (prediabetes). Fasting plasma glucose results greater than or equal to 126 mg/dL meet the criteria for diagnosis of diabetes. In the absence of unequivocal hyperglycemia, results should be confirmed by repeat testing. In a patient with classic symptoms of hyperglycemia or hyperglycemic crisis, random plasma glucose results greater than or equal to 200 mg/dL meet the criteria for diagnosis of diabetes. Reference: Standards of Medical Care in Diabetes 2016, [place] [employer]. Diabetes Care. 2016.39(Suppl 1). Results may be falsely elevated after the administration of Sulfapyridine. Results may be falsely depressed after the administration of Sulfasalazine. Performed By: #### 6 30-4, 89851-2 #### [facility] CLIA [id number] [address] [place] [address] [place] Potassium [Moles/Vol] 4.0 mmol/L Normal 3.5-5.1 [facility] Comment on above: Order Comment: Speci men Type: URINE SPECIMEN Ordering Facility: [facility] Address: [address] [place] [address] Performed By: #### 6 30-4, 66028-3 #### [facility] CLIA [id number] [address] [place] [address] [place] Protein [Mass/Vol] 6.7 g/dL Normal 6.0-8.5 [facility] Comment on above: Order Comment: Speci men Type: URINE SPECIMEN Ordering Facility: [facility] Address: [address] [place] [address] Performed By: #### 6 30-4, 86201-2 #### [facility] CLIA [id number] [address] [place] [address] [place] Sodium [Moles/Vol] 140 mmol/L Normal 136-145 [facility] Comment on above: Order Comment: Speci men Type: URINE SPECIMEN Ordering Facility: [facility] Address: [address] [place] [address] Performed By: #### 6 30-4, 22482-9 #### [facility] CLIA [id number] [address] [place] [address] [place] Urea nitrogen [Mass/Vol] 25 mg/dL Normal 7-26 [facility] Comment on above: Order Comment: Speci men Type: URINE SPECIMEN Ordering Facility: [facility] Address: [address] [place] [address] Performed By: #### 6 30-4, 17939-1 #### [facility] CLIA [id number] [address] [place] [address] [place] Magnesium SerPl-mCncon 01-16 Magnesium [Mass/Vol] 1.9 mg/dL Normal 1.6-2.6 [facility] Comment on above: Order Comment: Speci men Type: BLOOD SPECIMENOrdering Facility: [facility] Address: [address] [place] [address] Performed By: #### 6 30-4, 69346-5 #### [facility] CLIA [id number] [address] [place], [place] [address] [facility] ALLIED HEALTHon 01-15-2025 ALLIED HEALTH HNO ID: [id number] Author: ABDULLAHI RAE Chaplain Service: Spiritual Care Author Type: Type: Allied Health Filed: 01/15/2025 18:17 Note Text: SPIRITUAL CARE ASSESSMENT SERVICE DATE: 01/15/2025 SERVICE TIME: 04:18 Visit with: Patient Length of visit (minutes): 10 Confucianism / Spirituality: Oriental Orthodox Reason: Initial visit ASSESSMENT Emotional Disposition: Hopeful and Sadness Relational Concerns: None Spiritual Concerns: None INTERVENTIONS Empowerment: Encouraged adherence to treatment plan Exploration: Explored emotional needs and resources, Explored hope, Explored spiritual needs and resources, and Facilitated story telling Relationship Building: None / Not Applicable Ritual: [place] OUTCOMES Patient expressed gratitude PLAN Will follow as circumstances allow COMMENTS: SIGNATURE: Chaplain Collette PATIENT NAME: Todd Delong DATE: January 15, 2025 TIME: 6:16 PM PAGER/CONTACT #: [phone] Normal [facility] CBC panel Auto (Bld)on 01-15 Erythrocyte distribution width (RBC) [Ratio] 13.4 % Normal 11.5-15.0 [facility] Comment on above: Order Comment: Speci men Type: URINE SPECIMEN Ordering Facility: [facility] Address: [address] [place] [address] Performed By: #### 6 30-4, 96347-4 #### [facility] CLIA [id number] [address] [place], [place] [address] [facility] Hematocrit (Bld) [Volume fraction] 36.7 % Normal 36.0-46.0 [facility] Comment on above: Order Comment: Speci men Type: URINE SPECIMEN Ordering Facility: [facility] Address: [address] [place] [address] Performed By: #### 6 30-4, 57770-1 #### [facility] CLIA [id number] [address] [place] [address] [place] Hemoglobin (Bld) [Mass/Vol] 11.8 g/dL Normal 11.5-15.5 [facility] Comment on above: Order Comment: Speci men Type: URINE SPECIMEN Ordering Facility: [facility] Address: [address] [place] [address] Performed By: #### 6 30-4, 74498-0 #### [facility] CLIA [id number] [address] [place] [address] [place] MCH (RBC) [Entitic mass] 28.9 pg Normal 26.0-34.0 [facility] Comment on above: Order Comment: Speci men Type: URINE SPECIMEN Ordering Facility: [facility] Address: [address] [place] [address] Performed By: #### 6 30-4, 73001-0 #### [facility] CLIA [id number] [address] [place] [address] [place] MCHC (RBC) [Mass/Vol] 32.2 g/dL Normal 30.5-36.0 [facility] Comment on above: Order Comment: Speci men Type: URINE SPECIMEN Ordering Facility: [facility] Address: [address] [place] [address] Performed By: #### 6 30-4, 01952-4 #### [facility] CLIA [id number] [address] [place] [address] [place] MCV (RBC) [Entitic vol] 90.0 fL Normal 80.0-100.0 [facility] Comment on above: Order Comment: Speci men Type: URINE SPECIMEN Ordering Facility: [facility] Address: [address] [place] [address] Performed By: #### 6 30-4, 70503-6 #### [facility] CLIA [id number] [address] [place] [address] [place] Nucleated RBC (Bld) [#/Vol] 10*3/uL Normal <0.01 [facility] Comment on above: Order Comment: Speci men Type: URINE SPECIMEN Ordering Facility: [facility] Address: [address] [place], [place] [address] Performed By: #### 6 30-4, 75151-3 #### [facility] CLIA [id number] [address] [place], [place] [address] [place] Platelet mean volume (Bld) [Entitic vol] 9.9 fL Normal 9.0-12.7 [facility] Comment on above: Order Comment: Speci men Type: URINE SPECIMEN Ordering Facility: [facility] Address: [address] [place] [address] Performed By: #### 6 30-4, 01870-9 #### [facility] CLIA [id number] [address] [place] [address] [place] Platelets (Bld) [#/Vol] 259 10*3/uL Normal 150-400 [facility] Comment on above: Order Comment: Speci men Type: URINE SPECIMEN Ordering Facility: [facility] Address: [address] [place], [place] [address] Performed By: #### 6 30-4, 35568-0 #### [facility] CLIA [id number] [address] [place] [address] [place] RBC (Bld) [#/Vol] 4.08 10*6/uL Normal 3.90-5.20 [facility] Comment on above: Order Comment: Speci men Type: URINE SPECIMEN Ordering Facility: [facility] Address: [address] [place], [place] [address] Performed By: #### 6 30-4, 65966-8 #### [facility] CLIA [id number] [address] [place] [address] [place] WBC (Bld) [#/Vol] 8.40 10*3/uL Normal 3.70-11.00 [facility] Comment on above: Order Comment: Speci men Type: URINE SPECIMEN Ordering Facility: [facility] Address: [address] [place] [address] Performed By: #### 6 30-4, 68977-5 #### [facility] CLIA [id number] [address] [place] CONSULT PROGon 01-15-2025 CONSULT PROG HNO ID: [id number] Author: PIYUSH MCMILLAN MD Service: Infectious Disease Author Type: Physician Type: Consult Progress Note Filed: 01/15/2025 09:22 Note Text: Infectious Disease SERVICE CONSULT PROGRESS NOTE SERVICE DATE: 01/15/2025 SERVICE TIME: 9:16 AM Subjective INTERVAL HPI: Pt feeling good. No f/c. Had multiple bowel movements yesterday but now improved. No pain with her neph tubes. Current Facility-Administered Medications Medication Dose Route Frequency NaCl 0.9% iv flush bag 20 mL INTRAVENOUS PRN heparin 5,000 Units injection 5,000 Units SUBCUTANEOUS q 8 H aluminum-magnesium hydroxide-simethicone 200-200-20 mg/5 mL 30 mL 30 mL ORAL DAILY PRN ondansetron 4 mg tab(s) (ZOFRAN) 4 mg ORAL q 6 H PRN Or ondansetron (PF) 4 mg injection (ZOFRAN) 4 mg INTRAVENOUS q 6 H PRN acetaminophen 650 mg tab(s) (TYLENOL) 650 mg ORAL q 6 H PRN morphine 2 mg injection 2 mg INTRAVENOUS q 4 H PRN amLODIPine 2.5 mg tab(s) (NORVASC) 2.5 mg ORAL DAILY potassium chloride ER 20 mEq tab(s) (KLOR-CON) 20 mEq ORAL DAILY pantoprazole DR 40 mg tab(s) (PROTONIX) 40 mg ORAL DAILY (6 AM) levothyroxine 25 mcg tab(s) (SYNTHROID) 25 mcg ORAL DAILY (6 AM) cefepime 1 g in D5W 100 mL Vial-Bag (MAXIPIME) 1 g INTRAVENOUS q 12 H Objective PHYSICAL EXAM: Physical Exam Performed: BP 132/67 Pulse 106 Temp (Src) 99 (Oral) Resp 20 Ht 5' 7 (1.70m) Wt 198 lb 13.7 oz (90.2kg) SpO2 96% BMI 31.14 kg/(m2). O2 Therapy: Room Air Alert, oriented, NAD RRR No w/r/r appreciated Abd soft, NT Bilateral neph tubes No LE edema DATA: Diagnostic tests reviewed for today's visit: CBC: Recent Labs 01/15/25 0703 WBC 8.40 RBC 4.08 HB 11.8 HCT 36.7 PLT 259 MCV 90.0 MCH 28.9 MPV 9.9 CMP: Recent Labs 01/15/25 0703 NA 139 K 4.0 CHLOR 107 CO2 22 BUN 25 CREAT 1.93* GLUC 73 TPROT 6.5 CA 9.0 MG 1.9 TBILI 0.4 ALKPHOS 120* ALT 18 AST 39* ANION 10 Impression/Recommendations Principal Problem: Sepsis (POA), due to gram-negative bacteremia most likely from urinary tract source. Obstructive uropathy, chronic bilateral hydronephrosis. Bilateral nephrostomy tubes. Morganella bacteremia Awaiting Sn results - d/w micro lab, anticipating results tomorrow. Continue cefepime. Pt looks stable. Will follow. SIGNATURE: Piyush Mcmillan MD PATIENT NAME: Todd Delong DATE: January 15, 2025 TIME: 9:16 AM Normal [facility] Comprehensive metabolic 2000 panelon 01-15-2025 Albumin [Mass/Vol] 2.5 g/dL Low 3.2-5.0 [facility] Comment on above: Order Comment: Speci men Type: URINE SPECIMEN Ordering Facility: [facility] Address: [address] [place] [address] Performed By: #### 6 30-4, 18997-7 #### [facility] CLIA [id number] [address] [place] [address] [place] ALP [Catalytic activity/Vol] 120 U/L High 45-117 [facility] Comment on above: Order Comment: Speci men Type: URINE SPECIMEN Ordering Facility: [facility] Address: [address] [place] [address] Performed By: #### 6 30-4, 80395-0 #### [facility] CLIA [id number] [address] [place] [address] [place] ALT [Catalytic activity/Vol] 18 U/L Normal 13-61 [facility] Comment on above: Order Comment: Speci men Type: URINE SPECIMEN Ordering Facility: [facility] Address: [address] [place] [address] Result Comment: Resu lts may be falsely depressed after the administration of Sulfasalazine and/or Sulfapyridine. Performed By: #### 6 30-4, 23480-1 #### [facility] CLIA [id number] [address] [place] [address] [place] Anion gap [Moles/Vol] 10 mmol/L Normal 5-16 [facility] Comment on above: Order Comment: Speci men Type: URINE SPECIMEN Ordering Facility: [facility] Address: [address] [place] [address] Performed By: #### 6 30-4, 32901-2 #### [facility] CLIA [id number] [address] [place] [address] [place] AST [Catalytic activity/Vol] 39 U/L High 8-34 [facility] Comment on above: Order Comment: Speci men Type: URINE SPECIMEN Ordering Facility: [facility] Address: [address] [place] [address] Result Comment: Resu lts may be falsely depressed after the administration of Sulfasalazine and/or Sulfapyridine. Performed By: #### 6 30-4, 55740-7 #### [facility] CLIA [id number] [address] [place] [address] [place] Bilirubin [Mass/Vol] 0.4 mg/dL Normal 0.2-1.0 [facility] Comment on above: Order Comment: Speci men Type: URINE SPECIMEN Ordering Facility: [facility] Address: [address] [place] [address] Performed By: #### 6 30-4, 13129-9 #### [facility] CLIA [id number] [address] [place] [address] [place] Calcium [Mass/Vol] 9.0 mg/dL Normal 8.5-10.5 [facility] Comment on above: Order Comment: Speci men Type: URINE SPECIMEN Ordering Facility: [facility] Address: [address] [place] [address] Performed By: #### 6 30-4, 91113-4 #### [facility] CLIA [id number] [address] [place] [address] [place] Chloride [Moles/Vol] 107 mmol/L Normal 98-107 [facility] Comment on above: Order Comment: Speci men Type: URINE SPECIMEN Ordering Facility: [facility] Address: [address] [place] [address] Performed By: #### 6 30-4, 01517-6 #### [facility] CLIA [id number] [address] [place] [address] [place] CO2 [Moles/Vol] 22 mmol/L Normal 21-32 [facility] Comment on above: Order Comment: Speci men Type: URINE SPECIMEN Ordering Facility: [facility] Address: [address] [place] [address] Performed By: #### 6 30-4, 06942-1 #### [facility] CLIA [id number] [address] [place] [address] [place] Creatinine [Mass/Vol] 1.93 mg/dL High 0.51-0.95 [facility] Comment on above: Order Comment: Speci men Type: URINE SPECIMEN Ordering Facility: [facility] Address: [address] [place] [address] Result Comment: Mayda ents receiving either N-Acetylcysteine (NAC) or Metamizole prior to venipuncture, may have falsely depressed results. Performed By: #### 6 30-4, 65374-4 #### [facility] CLIA [id number] [address] [place] [address] [place] Creatinine and Glomerular filtration rate.predicted panel (S/P/Bld) 27 mL/min/1.73m??? Low >=60 [facility] Comment on above: Order Comment: Speci men Type: URINE SPECIMEN Ordering Facility: [facility] Address: [address] [place] [address] Result Comment: Judith mated Glomerular Filtration Rate [...] accurately reflect actual GFR. Performed By: #### 6 30-4, 39462-5 #### [facility] CLIA [id number] [address] [place] [address] [place] Glucose [Mass/Vol] 73 mg/dL Normal 70-100 [facility] Comment on above: Order Comment: Speci men Type: URINE SPECIMEN Ordering Facility: [facility] Address: [address] [place] [address] Result Comment: The [place] [employer] (ADA) provides guidance for cutoff values for fasting glucose and random glucose. The ADA defines fasting as no caloric intake for at least 8 hours. Fasting plasma glucose results between 100 to 125 mg/dL indicate increased risk for diabetes (prediabetes). Fasting plasma glucose results greater than or equal to 126 mg/dL meet the criteria for diagnosis of diabetes. In the absence of unequivocal hyperglycemia, results should be confirmed by repeat testing. In a patient with classic symptoms of hyperglycemia or hyperglycemic crisis, random plasma glucose results greater than or equal to 200 mg/dL meet the criteria for diagnosis of diabetes. Reference: Standards of Medical Care in Diabetes 2016, [place] [employer]. Diabetes Care. 2016.39(Suppl 1). Results may be falsely elevated after the administration of Sulfapyridine. Results may be falsely depressed after the administration of Sulfasalazine. Performed By: #### 6 30-4, 49432-1 #### [facility] CLIA [id number] [address] [place], [place] [address] [place] Potassium [Moles/Vol] 4.0 mmol/L Normal 3.5-5.1 [facility] Comment on above: Order Comment: Speci men Type: URINE SPECIMEN Ordering Facility: [facility] Address: [address] [place] [address] Performed By: #### 6 30-4, 12166-6 #### [facility] LABORATORY CLIA [id number] [address] [place], [place] [id number] [place] Protein [Mass/Vol] 6.5 g/dL Normal 6.0-8.5 [facility] Comment on above: Order Comment: Speci men Type: URINE SPECIMEN Ordering Facility: [facility] Address: [address] [place] [address] [place] [address] Performed By: #### 6 30-4, 70170-9 #### [facility] CLIA [id number] [address] [place] [address] [place] Sodium [Moles/Vol] 139 mmol/L Normal 136-145 [facility] Comment on above: Order Comment: Speci men Type: URINE SPECIMEN Ordering Facility: [facility] Address: [address] [place] [address] Performed By: #### 6 30-4, 26604-8 #### [facility] CLIA [id number] [address] [place] [address] [place] Urea nitrogen [Mass/Vol] 25 mg/dL Normal 7-26 [facility] Comment on above: Order Comment: Speci men Type: URINE SPECIMEN Ordering Facility: [facility] Address: [address] [place] [address] Performed By: #### 6 30-4, 86271-7 #### [facility] CLIA [id number] [address] [place] [address] [place] Magnesium SerPl-mCncon 01-15 Magnesium [Mass/Vol] 1.9 mg/dL Normal 1.6-2.6 [facility] Comment on above: Order Comment: Speci men Type: URINE SPECIMEN Ordering Facility: [facility] Address: [address] [place] [address] Performed By: #### 6 30-4, 40009-9 #### [facility] CLIA [id number] [address] [place] [address] [place] THERAPY NTon 01-15-2025 THERAPY NT HNO ID: [id number] Author: ALBERTINA CHILDS, PT, DPT Service: Physical Therapy Author Type: Physical Therapist Type: Therapy (PT/OT/Speech/Resp) Filed: 01/15/2025 14:53 Note Text: Physical Therapy Evaluation Summary SERVICE DATE: 01/15/2025 SERVICE TIME: 1350 to 1417 ROOM: [place] [address] PT 6 Clicks Score: 23 DISCHARGE RECOMMENDATIONS Home PT Recommended Discharge Disposition Comments: recommend home PT for reintegration to home setting Recommended Discharge Equipment: No equipment needs anticipated ASSESSMENT Response to Therapy Interventions: Good Participation in Activities, Multiple Ongoing Medical Issues Pt tolerated therapy session well; no current skilled PT needs in acute setting; recommend home w/ family assist; may benefit from home PT for reintegration to home setting PRECAUTIONS Fall Risk, Lines/Tubes/Drains B nephrostomy tubes CURRENT HOSPITAL COURSE Bacteremia, sepsis, B nephrostomy tubes s/p exchange on 01/12/25 Relevant Past Medical History: nephrostomy, OA, asthma, CA, HTN HOME LIVING Patient Lives With: Family Assistance Available: 24-Hour Entry To Home: Stairs, With Rail Number Of Stairs Into Home: 3 Number Of Stairs To Bed/Bath: 15 Stairs to Bed/Bath with: Bilateral Rail Tub/Shower Type: tub/shower w/ shower chair Laundry: family assist Equipment Owned: Grab Bars- Shower, Shower Chair, Walker- Wheeled, Rollator, Elevated Toilet Seat, Grab Bars- Toilet PRIOR FUNCTIONAL LEVEL Within Functional Limits Pt reports use of cane in the home at times. SUBJECTIVE Pt agreeable to therapy session THERAPY DIAGNOSIS Reduced mobility-other, Unsteadiness on feet, Abnormalities of gait and mobility-other TREATMENT INTERVENTIONS Evaluation, Therapeutic Activity (73774) Timed Code Treatment (minutes): 9 Skilled Treatment Time (minutes): 24 TRAINING AND EDUCATION PROVIDED Assistive Device Use THERAPEUTIC SKILLS USED Assessment of Tolerance Including Vitals Response to Activity, Activity Dosing, Cues for Sequencing/Proper Technique for Activity, Cuing Verbal, Management of Critical Lines, Tubes and/or Drains FUNCTIONAL STATUS Bed Mobility Supine To Sit: Modified Independent Sit to Supine: Modified Independent Transfers Sit To Stand: Supervision Stand To Sit: Supervision Bed to Chair Gait Supervision, Additional Information no overt LOB; no BEGUM; good balance and safety w/ use of WW Gait Device: Wheeled Walker Gait Distance (feet): [id number] Stairs Additional Information Pt declines need for stair negotiation at this time Vital Signs Pulse: 113 SpO2: 95 % O2 Therapy: Room Air Range of Motion: ROM Limitation Comments ROM Limitation Comments: BLE ROM good grossly Strength: Strength Limitation Comments Strength Limitation Comments: good grossly BLE w/ transfers/amb GOALS Patient will demonstrate progress to optimize functional mobility, maximize activity tolerance and endurance to maximize function upon discharge. Rehab Potential: Good PLAN PT Frequency: Discontinue Therapy Services Reasons Therapy Services Discontinued: Goals met, No skilled needs Treatment Interventions: Education, Strengthening, Functional Mobility Training, Balance Training, Neuromuscular Re-education SIGNATURE: Albertina Childs PT, DPT PATIENT NAME: Todd Delong DATE: January 15, 2025 TIME: 2:52 PM Normal [facility] Basic metabolic 2000 panelon 01-14-2025 Anion gap [Moles/Vol] 9 mmol/L Normal 5-16 [facility] Comment on above: Order Comment: Speci men Type: BLOOD SPECIMEN Ordering Facility: [facility] Address: [address] [place] [address] Performed By: #### 2 4323-8 #### [facility] CLIA [id number] [address] [place] [address] [place] Calcium [Mass/Vol] 8.6 mg/dL Normal 8.5-10.5 [facility] Comment on above: Order Comment: Speci men Type: BLOOD SPECIMEN Ordering Facility: [facility] Address: [address] [place] [address] Performed By: #### 2 4323-8 #### [facility] CLIA [id number] [address] [place] [address] [place] Chloride [Moles/Vol] 104 mmol/L Normal 98-107 [facility] Comment on above: Order Comment: Speci men Type: BLOOD SPECIMEN Ordering Facility: [facility] Address: [address] [place] [address] Performed By: #### 2 4323-8 #### [facility] CLIA [id number] [address] [place] [address] [place] CO2 [Moles/Vol] 22 mmol/L Normal 21-32 [facility] Comment on above: Order Comment: Speci men Type: BLOOD SPECIMEN Ordering Facility: [facility] Address: [address] [place] [address] Performed By: #### 2 4323-8 #### [facility] CLIA [id number] [address] [place] [address] [place] Creatinine [Mass/Vol] 2.15 mg/dL High 0.51-0.95 [facility] Comment on above: Order Comment: Speci men Type: BLOOD SPECIMEN Ordering Facility: [facility] Address: [address] [place] [address] Result Comment: Mayda ents receiving either N-Acetylcysteine (NAC) or Metamizole prior to venipuncture, may have falsely depressed results. Performed By: #### 2 4323-8 #### [facility] CLIA [id number] [address] [place] [address] OF [facility] Creatinine and Glomerular filtration rate.predicted panel (S/P/Bld) 24 mL/min/1.73m??? Low >=60 [facility] Comment on above: Order Comment: Abdon lyles Type: BLOOD SPECIMEN Ordering Facility: [facility] Address: [address] [place] [address] Result Comment: Judith mated Glomerular Filtration Rate [...] actual GFR. Performed By: #### 2 4323-8 #### [facility] CLIA [id number] [address] [place] [address] [place] Glucose [Mass/Vol] 83 mg/dL Normal 70-100 [facility] Comment on above: Order Comment: Abdon lyles Type: BLOOD SPECIMEN Ordering Facility: [facility] Address: [address] [place] [address] Result Comment: The [place] [employer] (ADA) provides guidance for cutoff values for fasting glucose and random glucose. The ADA defines fasting as no caloric intake for at least 8 hours. Fasting plasma glucose results between 100 to 125 mg/dL indicate increased risk for diabetes (prediabetes). Fasting plasma glucose results greater than or equal to 126 mg/dL meet the criteria for diagnosis of diabetes. In the absence of unequivocal hyperglycemia, results should be confirmed by repeat testing. In a patient with classic symptoms of hyperglycemia or hyperglycemic crisis, random plasma glucose results greater than or equal to 200 mg/dL meet the criteria for diagnosis of diabetes. Reference: Standards of Medical Care in Diabetes 2016, [place] [employer]. Diabetes Care. 2016.39(Suppl 1). Results may be falsely elevated after the administration of Sulfapyridine. Results may be falsely depressed after the administration of Sulfasalazine. Performed By: #### 2 4323-8 #### [facility] CLIA [id number] [address] [place] [address] [place] Potassium [Moles/Vol] 4.1 mmol/L Normal 3.5-5.1 [facility] Comment on above: Order Comment: Abdon lyles Type: BLOOD SPECIMEN Ordering Facility: [facility] Address: [address] [place] [address] Performed By: #### 2 4323-8 #### [facility] CLIA [id number] [address] [place] [address] [place] Sodium [Moles/Vol] 135 mmol/L Low 136-145 [facility] Comment on above: Order Comment: Abdon lyles Type: BLOOD SPECIMEN Ordering Facility: [facility] Address: [address] [place] [address] Performed By: #### 2 4323-8 #### [facility] CLIA [id number] [address] [place] [address] [place] Urea nitrogen [Mass/Vol] 29 mg/dL High 7-26 [facility] Comment on above: Order Comment: Abdon lyles Type: BLOOD SPECIMEN Ordering Facility: [facility] Address: [address] [place] [address] Performed By: #### 2 4323-8 #### [facility] CLIA [id number] [address] [place] [address] [place] CBC W Auto Differential pane l (Bld)on 01-14-2025 Basophils (Bld) [#/Vol] 0.05 10*3/uL Normal <0.11 [facility] Comment on above: Order Comment: Speci men Type: BLOOD SPECIMEN Ordering Facility: [facility] Address: [address] [place] [address] Performed By: #### 2 4323-8 #### [facility] CLIA [id number] [address] [place] [address] [place] Basophils/100 WBC (Bld) 0.5 % Normal [facility] Comment on above: Order Comment: Speci men Type: BLOOD SPECIMEN Ordering Facility: [facility] Address: [address] [place] [address] Performed By: #### 2 4323-8 #### [facility] CLIA [id number] [address] [place] [address] [place] Differential cell count method Nom (Bld) Auto Normal [facility] Comment on above: Order Comment: Speci men Type: BLOOD SPECIMEN Ordering Facility: [facility] Address: [address] [place] [address] Performed By: #### 2 4323-8 #### [facility] CLIA [id number] [address] [place] [address] [place] Eosinophils (Bld) [#/Vol] 0.06 10*3/uL Normal <0.46 [facility] Comment on above: Order Comment: Speci men Type: BLOOD SPECIMEN Ordering Facility: [facility] Address: [address] [place] [address] Performed By: #### 2 4323-8 #### [facility] CLIA [id number] [address] [place] [address] [place] Eosinophils/100 WBC (Bld) 0.6 % Normal [facility] Comment on above: Order Comment: Speci men Type: BLOOD SPECIMEN Ordering Facility: [facility] Address: [address] [place] [address] Performed By: #### 2 4323-8 #### [facility] CLIA [id number] [address] [place] [address] [place] Erythrocyte distribution width (RBC) [Ratio] 13.4 % Normal 11.5-15.0 [facility] Comment on above: Order Comment: Speci men Type: BLOOD SPECIMEN Ordering Facility: [facility] Address: [address] [place] [address] Performed By: #### 2 4323-8 #### [facility] CLIA [id number] [address] [place] [address] [place] Hematocrit (Bld) [Volume fraction] 37.5 % Normal 36.0-46.0 [facility] Comment on above: Order Comment: Speci men Type: BLOOD SPECIMEN Ordering Facility: [facility] Address: [address] [place] [address] Performed By: #### 2 4323-8 #### [facility] CLIA [id number] [address] [place] [address] [place] Hemoglobin (Bld) [Mass/Vol] 12.4 g/dL Normal 11.5-15.5 [facility] Comment on above: Order Comment: Speci men Type: BLOOD SPECIMEN Ordering Facility: [facility] Address: [address] [place] [address] Performed By: #### 2 4323-8 #### [facility] CLIA [id number] [address] [place] [address] [place] Immature granulocytes (Bld) [#/Vol] 0.05 10*3/uL Normal <0.10 [facility] Comment on above: Order Comment: Speci men Type: BLOOD SPECIMEN Ordering Facility: [facility] Address: [address] [place] [address] Performed By: #### 2 4323-8 #### [facility] CLIA [id number] [address] [place] [address] [place] Immature granulocytes/100 WBC (Bld) 0.5 % Normal [facility] Comment on above: Order Comment: Speci men Type: BLOOD SPECIMEN Ordering Facility: [facility] Address: [address] [place] [address] Performed By: #### 2 4323-8 #### [facility] CLIA [id number] [address] [place] [address] [place] Lymphocytes (Bld) [#/Vol] 3.16 10*3/uL Normal 1.00-4.00 [facility] Comment on above: Order Comment: Speci men Type: BLOOD SPECIMEN Ordering Facility: [facility] Address: [address] [place] [address] Performed By: #### 2 4323-8 #### [facility] CLIA [id number] [address] [place] [address] [place] Lymphocytes/100 WBC (Bld) 33.5 % Normal [facility] Comment on above: Order Comment: Speci men Type: BLOOD SPECIMEN Ordering Facility: [facility] Address: [address] [place] [address] Performed By: #### 2 4323-8 #### [facility] CLIA [id number] [address] [place] [address] [place] MCH (RBC) [Entitic mass] 29.2 pg Normal 26.0-34.0 [facility] Comment on above: Order Comment: Speci men Type: BLOOD SPECIMEN Ordering Facility: [facility] Address: [address] [place] [address] Performed By: #### 2 4323-8 #### [facility] CLIA [id number] [address] [place] [address] [place] MCHC (RBC) [Mass/Vol] 33.1 g/dL Normal 30.5-36.0 [facility] Comment on above: Order Comment: Speci men Type: BLOOD SPECIMEN Ordering Facility: [facility] Address: [address] [place] [address] Performed By: #### 2 4323-8 #### [facility] CLIA [id number] [address] [place] [address] [place] MCV (RBC) [Entitic vol] 88.4 fL Normal 80.0-100.0 [facility] Comment on above: Order Comment: Speci men Type: BLOOD SPECIMEN Ordering Facility: [facility] Address: [address] [place] [address] Performed By: #### 2 4323-8 #### [facility] CLIA [id number] [address] [place] [address] [place] Monocytes (Bld) [#/Vol] 1.02 10*3/uL High <0.87 [facility] Comment on above: Order Comment: Speci men Type: BLOOD SPECIMEN Ordering Facility: [facility] Address: [address] [place] [address] Performed By: #### 2 4323-8 #### [facility] CLIA [id number] [address] [place] [address] [place] Monocytes/100 WBC (Bld) 10.8 % Normal [facility] Comment on above: Order Comment: Speci men Type: BLOOD SPECIMEN Ordering Facility: [facility] Address: [address] [place] [address] Performed By: #### 2 4323-8 #### [facility] CLIA [id number] [address] [place] [address] [place] Neutrophils (Bld) [#/Vol] 5.09 10*3/uL Normal 1.45-7.50 [facility] Comment on above: Order Comment: Speci men Type: BLOOD SPECIMEN Ordering Facility: [facility] Address: [address] [place] [address] Performed By: #### 2 4323-8 #### [facility] CLIA [id number] [address] [place] [address] [place] Neutrophils/100 WBC (Bld) 54.1 % Normal [facility] Comment on above: Order Comment: Speci men Type: BLOOD SPECIMEN Ordering Facility: [facility] Address: [address] [place] [address] Performed By: #### 2 4323-8 #### [facility] CLIA [id number] [address] [place] [address] [place] Nucleated RBC (Bld) [#/Vol] 10*3/uL Normal <0.01 [facility] Comment on above: Order Comment: Speci men Type: BLOOD SPECIMEN Ordering Facility: [facility] Address: [address] [place] [address] Performed By: #### 2 4323-8 #### [facility] CLIA [id number] [address] [place] [address] [place] Nucleated RBC/100 WBC (Bld) [Ratio] 0.0 /100 WBC Normal [facility] Comment on above: Order Comment: Speci men Type: BLOOD SPECIMEN Ordering Facility: [facility] Address: [address] [place] [address] Performed By: #### 2 4323-8 #### [facility] [place] [id number] [address] [place] [address] [place] Platelet mean volume (Bld) [Entitic vol] 9.6 fL Normal 9.0-12.7 [facility] Comment on above: Order Comment: Speci men Type: BLOOD SPECIMEN Ordering Facility: [facility] Address: [address] [place] [address] Performed By: #### 2 4323-8 #### [facility] CLIA [id number] [address] [place] [address] [place] Platelets (Bld) [#/Vol] 263 10*3/uL Normal 150-400 [facility] Comment on above: Order Comment: Speci men Type: BLOOD SPECIMEN Ordering Facility: [facility] Address: [address] [place] [address] Performed By: #### 2 4323-8 #### [facility] CLIA [id number] [address] [place] [address] [place] RBC (Bld) [#/Vol] 4.24 10*6/uL Normal 3.90-5.20 [facility] Comment on above: Order Comment: Speci men Type: BLOOD SPECIMEN Ordering Facility: [facility] Address: [address] [place], [place] [address] [address] Performed By: #### 2 4323-8 #### [facility] CLIA [id number] [address] [place], [place] [id number] [facility] [place] WBC (Bld) [#/Vol] 9.43 10*3/uL Normal 3.70-11.00 [facility] Comment on above: Order Comment: Speci men Type: BLOOD SPECIMEN Ordering Facility: [facility] [address] [facility] [place] [address] Performed By: #### 2 4323-8 #### [facility] CLIA [id number] [address] [place], [place] [id number] [facility] CONSULTon 01-14-2025 CONSULT HNO ID: [id number] Author: PIYUSH MCMILLAN MD Service: Infectious Disease Author Type: Physician Type: Consults Filed: 01/14/2025 10:15 Note Text: Infectious Disease INITIAL CONSULT NOTE SERVICE DATE: 01/14/2025 SERVICE TIME: 9:52 AM REASON FOR CONSULT: Gram neg bacteremia PRIMARY CARE PHYSICIAN: Gerardo García MD Subjective Ms. Delong is a 74 year old female with history of cervical cancer status post radiation treatment remotely, obstructive uropathy/bilateral hydronephrosis with history of ureteral stents and now with bilateral nephrostomy tubes, CKD. Nephrostomy tubes last exchanged 01/12/2025. Patient presented to the ER yesterday with complaints of fevers and chills. She was tachycardic and had a white count of 13.6. Urinalysis had pyuria and bacteriuria. Creatinine is 2.42. LFTs were largely unremarkable with AST of 37 and ALT of 150. ALT was 28 and total bili 0.4. Blood cultures are growing gram-negative rods from 1 set and gram-positive cocci in clusters from the outset. ID has identified an Enterobacterales and methicillin resistant staph epi. The patient is currently on ceftriaxone and ID consult is been requested. Patient states that she is feeling better. No longer having chills. Denies any back pain. No leaking from her nephrostomy tube sites. No nausea or vomiting. Has had some mild diarrhea. No abdominal pain. No cough or trouble breathing. No chest pain. 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 FAXED for copy Renal failure [...] Dr. 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, no longer follows with fitter/welder LX REMOVAL RENAL MASS NEPHROSTOMY TUBE (MO,RI) 2022 PAST SURGICAL HISTORY OF gallbladder PAST SURGICAL HISTORY OF 11/19/1983 radiation PAST SURGICAL HISTORY OF 12/05/2024 Left neph tube replaced XCAPSL CTRC RMVL INSJ IO LENS PROSTH W/O ECP Right 08/11/2015 Cataract Extraction with Femtosecond Laser (LenSx) XCAPSL CTRC RMVL INSJ IO LENS PROSTH W/O ECP Left 09/09/2015 Cataract Extraction with PC IOL FAMILY HISTORY Problem Relation Age of Onset Heart Father Social History Tobacco Use Smoking status: Former Current packs/day: 1.00 Average packs/day: 1 pack/day for 17.2 years (17.2 ttl pk-yrs) Types: Cigarettes Start date: 2007 Quit date: 1967 Passive exposure: Never Smokeless tobacco: Never Vaping Use Vaping status: Never Used Substance Use Topics Alcohol use: Never Drug use: Not Currently albuterol HFA (VENTOLIN HFA) 90 mcg/actuation inhaler, Inhale 2 Puffs as instructed every 4 hours as needed for wheezing/shortness of breath., Disp: , Rfl: , Taking As Needed levothyroxine (SYNTHROID) 25 mcg tablet, Take 1 tablet by mouth daily before breakfast., Disp: , Rfl: , Taking ipratropium bromide (ATROVENT) 42 mcg (0.06 %) nasal spray, Use 2 Sprays in the nose every morning., Disp: , Rfl: , Taking pantoprazole DR (PROTONIX) 40 mg tablet, Take 40 mg by mouth every morning., Disp: , Rfl: , Taking potassium chloride ER (KLOR-CON) 20 mEq tablet, Take 20 mEq by mouth every morning., Disp: , Rfl: , Taking amLODIPine (NORVASC) 2.5 mg tablet, Take 2.5 mg by mouth every morning., Disp: , Rfl: , Taking sodium chloride 0.9 %, flush, (BD POSIFLUSH) syringe, 10 mL once daily., Disp: 300 mL, Rfl: 11 Urinary Bag ([place] URINARY DRAINAGE SYSTEM) misc, 2 Bags as needed., Disp: 10 Each, Rfl: 3 Current Facility-Administered Medications Medication Dose Route Frequency NaCl 0.9% iv flush bag 20 mL INTRAVENOUS PRN cefTRIAXone 1 g in D5W 100 mL Vial-Bag (ROCEPHIN) 1 g INTRAVENOUS q 24 H heparin 5,000 Units injection 5,000 Units SUBCUTANEOUS q 8 H lactated ringers iv infusion 125 mL/hr INTRAVENOUS CONTINUOUS aluminum-magnesium hydroxide-simethicone 200-200-20 mg/5 mL 30 mL 30 mL ORAL DAILY PRN ondansetron 4 mg tab(s) (ZOFRAN) 4 mg ORAL q 6 H PRN Or ondansetron (PF) 4 mg injection (ZOFRAN) 4 mg INTRAVENOUS q 6 H PRN acetaminophen 650 mg tab(s) (TYLENOL) 650 mg ORAL q 6 H PRN morphine 2 mg injection 2 mg INTRAVENOUS q 4 H PRN amLODIPine 2.5 mg tab(s) (NORVASC) 2.5 mg ORAL DAILY potassium chloride ER 20 mEq tab( (more content not included)... [facility] THERAPY NTon 01-14-2025 THERAPY NT HNO ID: [id number] Author: RAJESH ROJAS PT Service: Physical Therapy Author Type: Physical Therapist Type: Therapy (PT/OT/Speech/Resp) Filed: 01/14/2025 15:14 Note Text: PHYSICAL THERAPY MISSED VISIT SERVICE DATE: 01/14/2025 SERVICE TIME: 1514 ROOM: [place] [address] Patient not seen due to Declined to Participate. SIGNATURE: Rajesh Rojas PT PATIENT NAME: Todd Delong DATE: January 14, 2025 TIME: 3:14 PM Normal [facility] Bacteria Ur Culton Bacteria identified Cx Nom (U) ORGANISM ID: 1 >=100,000 CFU/ml Pseudomonas aeruginosa ORGANISM ID: 1 (PSEUDOMONAS AERUGINOSA) ANTIBIOTIC INTERPRETATION LEVI STATUS REFERENCE RANGE Cefepime S 2 F Susceptible <=8 , Intermediate >8 , Resistant >16 Meropenem S <=0.5 F Susceptible <=2 , Intermediate >2 , Resistant >4 Aztreonam S 4 F Susceptible <=8 , Intermediate >8 , Resistant >16 Piperacillin/Tazobac S 4 F Gentamicin R F Tobramycin NI <=2 F This isolate is intermediate or susceptible to tobramycin. If discrimination between intermediate and susceptible is needed, please call the lab to request additional testing. Amikacin S <=8 F Susceptible <=16 , Intermediate >16 , Resistant >32 Ciprofloxacin S <=0.25 F Susceptible <=0.5 , Intermediate >.5 , Resistant >1 Abnormal [facility] Comment on above: Performed By: #### 6 30-4, 65090-6 ####[facility] LABORATORYCLIA [id number] [place] [address] [place] CBC W Auto Differential pane l (Bld)on 01-13-2025 Basophils (Bld) [#/Vol] 0.03 10*3/uL Normal <0.11 [facility] Comment on above: Order Comment: Speci men Type: BLOOD SPECIMENOrdering Facility: [facility] Address: [facility] [place] [address] Performed By: #### 5 7021-8 ####[facility] LABORATORYCLIA [id number] [place] [address] [place] Basophils/100 WBC (Bld) 0.3 % Normal [facility] Comment on above: Order Comment: Speci men Type: BLOOD SPECIMENOrdering Facility: [facility] Address: [address] [place] [address] Performed By: #### 5 7021-8 ####[facility] LABORATORYCLIA [id number] [address] Differential cell count method Nom (Bld) Auto Normal [facility] Comment on above: Order Comment: Speci men Type: BLOOD SPECIMENOrdering Facility: [facility] Address: [address] [place] [address] Performed By: #### 5 7021-8 ####[facility] LABORATORYCLIA [id number] [address] [place] Eosinophils (Bld) [#/Vol] 10*3/uL Normal <0.46 [facility] Comment on above: Order Comment: Speci men Type: BLOOD SPECIMENOrdering Facility: [facility] Address: [address] [place] [address] Performed By: #### 5 7021-8 ####[facility] LABORATORYCLIA [id number] [address] [place] Eosinophils/100 WBC (Bld) 0.1 % Normal [facility] Comment on above: Order Comment: Speci men Type: BLOOD SPECIMENOrdering Facility: [facility] Address: [address] [place] [address] Performed By: #### 5 7021-8 ####[facility] LABORATORYCLIA [id number] [place] [address] [place] Erythrocyte distribution width (RBC) [Ratio] 13.6 % Normal 11.5-15.0 [facility] Comment on above: Order Comment: Speci men Type: BLOOD SPECIMENOrdering Facility: [facility] Address: [address] [place] [address] Performed By: #### 5 7021-8 ####[facility] LABORATORYCLIA [id number] [place] [address] [place] Hematocrit (Bld) [Volume fraction] 39.1 % Normal 36.0-46.0 [facility] Comment on above: Order Comment: Speci men Type: BLOOD SPECIMENOrdering Facility: [facility] Address: [address] [place] [address] Performed By: #### 5 7021-8 ####[facility] LABORATORYCLIA [id number] [place] [address] [place] Hemoglobin (Bld) [Mass/Vol] 12.9 g/dL Normal 11.5-15.5 [facility] Comment on above: Order Comment: Speci men Type: BLOOD SPECIMENOrdering Facility: [facility] Address: [address] [place] [address] Performed By: #### 5 7021-8 ####[facility] LABORATORYCLIA [id number] [place] [address] [place] Immature granulocytes (Bld) [#/Vol] 0.08 10*3/uL Normal <0.10 [facility] Comment on above: Order Comment: Speci men Type: BLOOD SPECIMENOrdering Facility: [facility] Address: [address] [place] [address] Performed By: #### 5 7021-8 ####[facility] LABORATORYCLIA [id number] [place] [address] [place] Immature granulocytes/100 WBC (Bld) 0.7 % Normal [facility] Comment on above: Order Comment: Speci men Type: BLOOD SPECIMENOrdering Facility: [facility] Address: [address] [place] [address] Performed By: #### 5 7021-8 ####[facility] LABORATORYCLIA [id number] [address] [place] Lymphocytes (Bld) [#/Vol] 2.97 10*3/uL Normal 1.00-4.00 [facility] Comment on above: Order Comment: Speci men Type: BLOOD SPECIMENOrdering Facility: [facility] Address: [address] [place] [address] Performed By: #### 5 7021-8 ####[facility] LABORATORYCLIA [id number] [address] [place] Lymphocytes/100 WBC (Bld) 25.1 % Normal [facility] Comment on above: Order Comment: Speci men Type: BLOOD SPECIMENOrdering Facility: [facility] Address: [address] [place] [address] Performed By: #### 5 7021-8 ####[facility] LABORATORYCLIA [id number] [address] STATES OF [facility] MCH (RBC) [Entitic mass] 29.0 pg Normal 26.0-34.0 [facility] Comment on above: Order Comment: Speci men Type: BLOOD SPECIMENOrdering Facility: [facility] Address: [address] [place] [address] Performed By: #### 5 7021-8 ####[facility] LABORATORYCLIA [id number] [address] [place] MCHC (RBC) [Mass/Vol] 33.0 g/dL Normal 30.5-36.0 [facility] Comment on above: Order Comment: Speci men Type: BLOOD SPECIMENOrdering Facility: [facility] Address: [address] [place] [address] Performed By: #### 5 7021-8 ####[facility] LABORATORYCLIA [id number] [address] [place] MCV (RBC) [Entitic vol] 87.9 fL Normal 80.0-100.0 [facility] Comment on above: Order Comment: Speci men Type: BLOOD SPECIMENOrdering Facility: [facility] Address: [address] [place] [address] Performed By: #### 5 7021-8 ####[facility] LABORATORYCLIA [id number] [place] [id number] [place] Monocytes (Bld) [#/Vol] 1.04 10*3/uL High <0.87 [facility] Comment on above: Order Comment: Speci men Type: BLOOD SPECIMENOrdering Facility: [facility] Address: [address] [place] [address] Performed By: #### 5 7021-8 ####[facility] LABORATORYCLIA [id number] [place] [id number] [place] Monocytes/100 WBC (Bld) 8.8 % Normal [facility] Comment on above: Order Comment: Speci men Type: BLOOD SPECIMENOrdering Facility: [facility] Address: [address] [place] [address] Performed By: #### 5 7021-8 ####[facility] LABORATORYCLIA [id number] [place] [address] [place] Neutrophils (Bld) [#/Vol] 7.71 10*3/uL High 1.45-7.50 [facility] Comment on above: Order Comment: Speci men Type: BLOOD SPECIMENOrdering Facility: [facility] Address: [address] [place] [address] Performed By: #### 5 7021-8 ####[facility] LABORATORYCLIA [id number] [place] [id number] [place] Neutrophils/100 WBC (Bld) 65.0 % Normal [facility] Comment on above: Order Comment: Speci men Type: BLOOD SPECIMENOrdering Facility: [facility] Address: [address] [place] [address] Performed By: #### 5 7021-8 ####[facility] LABORATORYCLIA [id number] [place] [id number] [place] Nucleated RBC (Bld) [#/Vol] 10*3/uL Normal <0.01 [facility] Comment on above: Order Comment: Speci men Type: BLOOD SPECIMENOrdering Facility: [facility] Address: [address] [place] [address] Performed By: #### 5 7021-8 ####[facility] LABORATORYCLIA [id number] [place] [address] [place] Nucleated RBC/100 WBC (Bld) [Ratio] 0.0 /100 WBC Normal [facility] Comment on above: Order Comment: Speci men Type: BLOOD SPECIMENOrdering Facility: [facility] Address: [address] [place] [address] Performed By: #### 5 7021-8 ####[facility] LABORATORYCLIA [id number] [place] [address] [place] Platelet mean volume (Bld) [Entitic vol] 10.0 fL Normal 9.0-12.7 [facility] Comment on above: Order Comment: Speci men Type: BLOOD SPECIMENOrdering Facility: [facility] Address: [address] [place] [address] Performed By: #### 5 7021-8 ####[facility] LABORATORYCLIA [id number] [place] [address] [place] Platelets (Bld) [#/Vol] 318 10*3/uL Normal 150-400 [facility] Comment on above: Order Comment: Speci men Type: BLOOD SPECIMENOrdering Facility: [facility] Address: [address] [place] [address] Performed By: #### 5 7021-8 ####[facility] LABORATORYCLIA [id number] [place] [address] [place] RBC (Bld) [#/Vol] 4.45 10*6/uL Normal 3.90-5.20 [facility] Comment on above: Order Comment: Speci men Type: BLOOD SPECIMENOrdering Facility: [facility] Address: [address] [place] [address] Performed By: #### 5 7021-8 ####[facility] LABORATORYCLIA [id number] [place] [id number] [place] WBC (Bld) [#/Vol] 11.84 10*3/uL High 3.70-11.00 [facility] Comment on above: Order Comment: Speci men Type: BLOOD SPECIMENOrdering Facility: [facility] Address: [facility] [place] [address] Performed By: #### 5 7021-8 ####[facility] LABORATORYCLIA [id number] [place] [id number] [facility] CNPNon 01-13-2025 CNPN Telephone (URCANT) -- TODD DELONG ([id number]) 1950 F Date Time Provider Department 01/13/25 JIN ANTONIO During your visit today, we recorded the following information about you: Aide Archer 01/13/2025 3:31 PM Signed Unable to hear PT message. Requested they call the office. Aide Archer Allergies As of Date: 01/13/2025 Noted Allergy Reaction METHYLPREDNISOLONE 08/01/2019 14 - Other: See Comments BACTRIM (SULFAMETHOXAZOLE) 01/04/2015 12 - Shortness of Breath PRAVASTATIN 01/04/2015 10 - Anaphylaxis PREDNISONE 01/04/2015 16 - Unknown Comments: Only allergic to Methylprednisone [id number] REDUCTASE INHIBIT*12/07/2021 10 - Anaphylaxis Date Reviewed: 01/12/2025 Reviewed by: Stacey Freeman, ANISH - Fully Assessed Prescriptions as of 01/13/2025 - sodium chloride 0.9 %, flush, (BD POSIFLUSH) syringe 10 mL once daily. - Urinary Bag (BARD URINARY DRAINAGE SYSTEM) misc 2 Bags as needed. - levothyroxine (SYNTHROID) 25 mcg tablet Take 1 tablet by mouth daily before breakfast. - IPRATROPIUM BROMIDE NASAL Use 1 [place] in the nose every morning. - pantoprazole DR (PROTONIX) 40 mg tablet Take 40 mg by mouth every morning. - potassium chloride ER (KLOR-CON) 20 mEq tablet Take 20 mEq by mouth every morning. - amLODIPine (NORVASC) 2.5 mg tablet Take 2.5 mg by mouth every morning. - ALBUTEROL SULFATE (VENTOLIN INHALATION) Inhale 1 [place]gut as instructed every 4 hours as needed (wheezing/shortness of breath). Problem List As Of Date 01/13/2025 Noted Resolved Hypermature senile cataract - Both [...] Recurrent UTI [N39.0] 10/10/2023 Hydronephrosis [N13.30] 11/17/2023 Preop testing [Z01.818] 02/06/2024 UTI (urinary tract infection) [N39.0] 06/18/2024 06/19/2024 UTI (urinary tract infection) [N39.0] 06/19/2024 Sepsis secondary to UTI (HCC) (HCC) [A41.9, N3*09/06/2024 Hydronephrosis of left kidney [N13.30] 12/05/2024 Pyelonephritis [N12] 12/05/2024 Nephrostomy tube displaced (HCC) [T83.022A] 12/05/2024 Encounter Status:Closed by AIDE ARCHER on 01/13/25 Normal [facility] Comprehensive metabolic 2000 panelon 01-13-2025 Albumin [Mass/Vol] 3.0 g/dL Low 3.2-5.0 [facility] Comment on above: Order Comment: Speci men Type: BLOOD SPECIMENOrdering Facility: [facility] Address: [address] [place] [address] Performed By: #### 2 4323-8 ####[facility] LABORATORYCLIA [id number] [place] [address] [place] ALP [Catalytic activity/Vol] 150 U/L High 45-117 [facility] Comment on above: Order Comment: Speci men Type: BLOOD SPECIMENOrdering Facility: [facility] Address: [address] [place] [address] Performed By: #### 2 4323-8 ####[facility] LABORATORYCLIA [id number] [address] [place] ALT [Catalytic activity/Vol] 28 U/L Normal 13-61 [facility] Comment on above: Order Comment: Speci men Type: BLOOD SPECIMENOrdering Facility: [facility] Address: [address] [place] [address] Result Comment: Resu lts may be falsely depressed after the administration of Sulfasalazine and/or Sulfapyridine. Performed By: #### 2 4323-8 ####[facility] LABORATORYCLIA [id number] [address] [place] Anion gap [Moles/Vol] 10 mmol/L Normal 5-16 [facility] Comment on above: Order Comment: Speci men Type: BLOOD SPECIMENOrdering Facility: [facility] Address: [address] [place] [address] Performed By: #### 2 4323-8 ####[facility] LABORATORYCLIA [id number] [place] [id number] [place] AST [Catalytic activity/Vol] 37 U/L High 8-34 [facility] Comment on above: Order Comment: Speci men Type: BLOOD SPECIMENOrdering Facility: [facility] Address: [address] [place] [address] Result Comment: Resu lts may be falsely depressed after the administration of Sulfasalazine and/or Sulfapyridine. Performed By: #### 2 4323-8 ####[facility] LABORATORYCLIA [id number] [place] [address] [place] Bilirubin [Mass/Vol] 0.4 mg/dL Normal 0.2-1.0 [facility] Comment on above: Order Comment: Speci men Type: BLOOD SPECIMENOrdering Facility: [facility] Address: [address] [place] [address] Performed By: #### 2 4323-8 ####[facility] LABORATORYCLIA [id number] [place] [address] [place] Calcium [Mass/Vol] 9.3 mg/dL Normal 8.5-10.5 [facility] Comment on above: Order Comment: Speci men Type: BLOOD SPECIMENOrdering Facility: [facility] Address: [address] [place] [address] Performed By: #### 2 4323-8 ####[facility] LABORATORYCLIA [id number] [place] [address] [place] Chloride [Moles/Vol] 100 mmol/L Normal 98-107 [facility] Comment on above: Order Comment: Speci men Type: BLOOD SPECIMENOrdering Facility: [facility] Address: [address] [place] [address] Performed By: #### 2 4323-8 ####[facility] LABORATORYCLIA [id number] [place] [address] [place] CO2 [Moles/Vol] 23 mmol/L Normal 21-32 [facility] Comment on above: Order Comment: Speci men Type: BLOOD SPECIMENOrdering Facility: [facility] Address: [address] [place] [address] Performed By: #### 2 4323-8 ####[facility] LABORATORYCLIA [id number] [place] [address] [place] Creatinine [Mass/Vol] 2.42 mg/dL High 0.51-0.95 [facility] Comment on above: Order Comment: Abdon lyles Type: BLOOD SPECIMENOrdering Facility: [facility] Address: [address] [place] [address] Result Comment: Mayda ents receiving either N-Acetylcysteine (NAC) or Metamizole prior to venipuncture, may have falsely depressed results. Performed By: #### 2 4323-8 ####[facility] LABORATORYCLIA [id number] [address] Creatinine and Glomerular filtration rate.predicted panel (S/P/Bld) 21 mL/min/1.73m??? Low >=60 [facility] Comment on above: Order Comment: Abdon lyels Type: BLOOD SPECIMENOrdering Facility: [facility] Address: [address] [place] [address] Result Comment: Judith mated Glomerular Filtration Rate [...] actual GFR. Performed By: #### 2 4323-8 ####[facility] LABORATORYCLIA [id number] [place] [address] [place] Glucose [Mass/Vol] 98 mg/dL Normal 70-100 [facility] Comment on above: Order Comment: Abdon lyles Type: BLOOD SPECIMENOrdering Facility: [facility] Address: [address] [place] [address] Result Comment: The [place] Diabetes [employer] (ADA) provides guidance for cutoff values for fasting glucose and random glucose. The ADA defines fasting as no caloric intake for at least 8 hours. Fasting plasma glucose results between 100 to 125 mg/dL indicate increased risk for diabetes (prediabetes). Fasting plasma glucose results greater than or equal to 126 mg/dL meet the criteria for diagnosis of diabetes. In the absence of unequivocal hyperglycemia, results should be confirmed by repeat testing. In a patient with classic symptoms of hyperglycemia or hyperglycemic crisis, random plasma glucose results greater than or equal to 200 mg/dL meet the criteria for diagnosis of diabetes. Reference: Standards of Medical Care in Diabetes 2016, [place] [employer]. Diabetes Care. 2016.39(Suppl 1). Results may be falsely elevated after the administration of Sulfapyridine. Results may be falsely depressed after the administration of Sulfasalazine. Performed By: #### 2 4323-8 ####[facility] LABORATORYCLIA [id number] [place] [address] [place] Potassium [Moles/Vol] 4.3 mmol/L Normal 3.5-5.1 [facility] Comment on above: Order Comment: Abdon lyles Type: BLOOD SPECIMENOrdering Facility: [facility] Address: [address] [place] [address] Performed By: #### 2 4323-8 ####[facility] LABORATORYCLIA [id number] [place] [address] [place] Protein [Mass/Vol] 7.5 g/dL Normal 6.0-8.5 [facility] Comment on above: Order Comment: Abdon lyles Type: BLOOD SPECIMENOrdering Facility: [facility] Address: [address] [place] [id number] Performed By: #### 2 4323-8 ####[facility] LABORATORYCLIA [id number] [place] [id number] [place] Sodium [Moles/Vol] 133 mmol/L Low 136-145 [facility] Comment on above: Order Comment: Abdon lyles Type: BLOOD SPECIMENOrdering Facility: [facility] Address: [address] [place] [address] Performed By: #### 2 4323-8 ####[facility] LABORATORYCLIA [id number] [place] [id number] [place] Urea nitrogen [Mass/Vol] 31 mg/dL High 7-26 [facility] Comment on above: Order Comment: Randalli rafal Type: BLOOD SPECIMENOrdering Facility: [facility] Address: [address] [place] [id number] Performed By: #### 2 4323-8 ####[facility] LABORATORYCLIA [id number] [place] [address] [place] ECG COMPLETEon 01-13-2025 ECG COMPLETE Ventricular Rate : 1 26 BPM Atrial Rate : 126 BPM P-R Interval : 144 ms QRS Duration : 82 ms Q-T Interval : 298 ms QTC Calculation(Bazett) : 431 ms Calculated P [place] : 60 degrees Calculated R [place] : 0 degrees Calculated T [place] : 77 degrees Sinus tachycardia Otherwise normal ECG No previous ECGs available Confirmed by ANDREI CRANE MD ([id number]) on 01/14/2025 4:46:36 PM NAME : TODD DELONG PID : [id number] : 1950 Gender : Female Race : ORD : [id number] Procedure Date : Jan 13 2025 14:56:26 Edit Date : Jan 14 2025 16:46:40 Diagnosis: Sinus tachycardia Otherwise normal ECG No previous ECGs available Confirmed by ANDREI CRANE MD ([id number]) on 01/14/2025 4:46:36 PM Test Reason : STAT Location : 0 : ED EDFTD Overread By : ANDREI CRANE MD Edited By : ANDREI CRANE MD Referred By : , Acquired by : [id number], [facility] ED PROV NOTEon 01-13-2025 ED PROV NOTE HNO ID: [id number] Author: MILLICENT COLEBRT MD Service: ? Author Type: Physician Type: ED Provider Notes Filed: 01/13/2025 18:59 Note Text: ED Provider Note Patient Name: Todd Delong : 1950 SERVICE DATE: 01/12/25 History Patient presents with: Fever: Pt c/o fever of 100.5 today, states took tylenol. Pt states had bilat nephrostomy tubes replaced today. This is a 74-year-old female comes in for evaluation of fevers and chills. She has a history of bilateral percutaneous nephrostomy tubes. She had a routine micro[employer] exchange architect and had the tubes exchanged yesterday. This was uneventful. She states a couple hours after going home she started feeling some feverishness and chills. She came to the emergency room last evening. Unfortunately she has had a extensively long wait in the waiting room. She was initially seen in triage and had lab evaluation started. And as it turns out she did have a leukocytosis, and a suspected UTI, and eventually her blood cultures did come back, with gram-negative bacillus and 1 that had gram-positive cocci. It is presumed that the gram-negative bacillus is likely the pathogen. Identification of the gram-positive is not undertaken yet. So the patient has been brought back to the emergency department. She unfortunately waited for about 22 hours out in the waiting room. She states that she still feels a little bit chilled at times. She denies any severe back pain. She denies cough but does have a little bit of runny nose. 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 FAXED for copy Renal failure [...] Dr. 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, no longer follows with fitter/welder LX REMOVAL RENAL [place] NEPHROSTOMY TUBE [place] [...] Problem Relation Age of Onset Heart Father Social History Tobacco Use Smoking status: Former Current packs/day: 1.00 Average packs/day: 1 pack/day for 17.2 years (17.2 ttl pk-yrs) Types: Cigarettes Start date: 2007 Quit date: 1967 Passive exposure: Never Smokeless tobacco: Never Vaping Use Vaping status: Never Used Substance and Sexual Activity Alcohol use: Never Drug use: Not Currently Sexual activity: Not on file ALLERGIES Allergen Reactions Methylprednisolone Other: See Comments Bactrim [Sulfametho* Shortness of Breath Pravastatin Anaphylaxis Prednisone Unknown Only allergic to Methylprednisone Weamxec-Spe-Fvg Red* Anaphylaxis Review of Systems Physical Exam Vitals [01/12/252047] BP Pulse Temp Temp src Resp SpO2 Weight Height 143/81 (!) 117 36.6 ?C (97.9 ?F) Oral 18 95 % 72.6 kg (160 lb) 1.702 m (5' 7) Physical Exam Vitals reviewed. Constitutional: Comments: Alert, remarkably pleasant for having waited this long. Cooperative, nontoxic in appearance but still a little bit tachycardic. Blood pressures have remained stable. No respiratory distress. HENT: Head: Atraumatic. Mouth/Throat: Mouth: Mucous membranes are dry. Cardiovascular: Rate and Rhythm: Tachycardia present. Pulmonary: Effort: Pulmonary effort is normal. Breath sounds: Normal breath sounds. Abdominal: Palpations: Abdomen is soft. Tenderness: There is no abdominal tenderness. Comments: She has bilateral percutaneous nephrostomy tubes. Both draining urine. Not having any significant discomfort to palpation or percussion in the region. Musculoskeletal: General: Normal range of motion. Cervical back: Normal range of motion. Skin: General: Skin is warm. Neurological: General: No focal deficit present. Mental Status: She is oriented to person, place, and time. Severe Sepsis Identified Date: 01/13/25 Severe Sepsis Identified Time: 1857 Severe Sepsis Identified Date: 01/13/25 Severe Sepsi (more content not included)... Normal [facility] HIGH SENSITIVITY TROPONIN I (INITIAL)on 01-13-2025 Tropinin I.cardiac panel High sensitivity method 5.9 pg/mL Normal 0.0-34.0 [facility] Comment on above: Order Comment: Speci men Type: BLOOD SPECIMENOrdering Facility: [facility] Address: [address] [place] [address] [place] [address] Performed By: #### L [id number] ####[facility] LABORATORYCLIA [id number] [place] [address] [facility] HIGH SENSITIVITY TROPONIN I (SECOND)on 01-13-2025 Tropinin I.cardiac panel High sensitivity method 8.0 pg/mL Normal 0.0-34.0 [facility] Comment on above: Order Comment: Speci men Type: BLOOD SPECIMENOrdering Facility: [facility] Address: [address] [place] [address] Performed By: #### H STROPI2 ####[facility] LABORATORYCLIA [id number] [place] [address] [facility] HISTORY PHYSICALon HISTORY PHYSICAL HNO ID: [id number] Author: JOHN WEEMS MD Service: General Internal Medicine Author Type: Physician Type: H&P Filed: 01/13/2025 19:19 Note Text: DEPARTMENT OF HOSPITAL MEDICINE HISTORY AND PHYSICAL EXAM SERVICE DATE: 01/13/2025 SERVICE TIME: 7:13 PM Primary Care Physician: Gerardo García MD Subjective CHIEF COMPLAINT: Fever, chills HPI: This is a 74 year old female with past medical history of bilateral nephrostomy tubes, hypertension, hypothyroidism, CKD who presented with fever and chills. Patient underwent scheduled exchange of her nephrostomy tubes yesterday without event. After going home she noticed intermittent fever/chills and decreased appetite. Came to the ER as she has had multiple hospitalizations for infection, most recently in November of this year. Vitals demonstrated tachycardia to the 120s otherwise stable. Labs pertinent for creatinine 2.02, WBC 13.6 otherwise grossly unremarkable. Urinalysis suggestive of infection versus contamination, however she does not have urinary symptoms and per chart review her UA is always interpreted as infected. 1 out of 2 blood cultures grew gram-positive cocci while her other blood culture grew gram-negative bacilli. Chest x-ray with no acute findings. She received empiric coverage with IV Rocephin during her ER course. Will be admitted for further management and evaluation by ID for sepsis secondary to gram-negative bacteremia. 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 FAXED for copy Renal failure [...] Dr. 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, no longer follows with fitter/welder LX REMOVAL RENAL M[place] NEPHROSTOMY TUBE ([place] 2022 PAST SURGICAL HISTORY OF gallbladder PAST SURGICAL HISTORY OF 11/19/1983 radiation PAST SURGICAL HISTORY OF 12/05/2024 Left neph tube replaced XCAPSL CTRC RMVL INSJ IO LENS PROSTH W/O ECP Right 08/11/2015 Cataract Extraction with Femtosecond Laser (LenSx) XCAPSL CTRC RMVL INSJ IO LENS PROSTH W/O ECP Left 09/09/2015 Cataract Extraction with PC IOL FAMILY HISTORY Problem Relation Age of Onset Heart Father Social History Tobacco Use Smoking status: Former Current packs/day: 1.00 Average packs/day: 1 pack/day for 17.2 years (17.2 ttl pk-yrs) Types: Cigarettes Start date: 2007 Quit date: 1967 Passive exposure: Never Smokeless tobacco: Never Vaping Use Vaping status: Never Used Substance Use Topics Alcohol use: Never Drug use: Not Currently MEDICATIONS: Reviewed Prior to Admission Medications Prescriptions Last Dose Informant Patient Reported? Taking? ALBUTEROL SULFATE (VENTOLIN INHALATION) Yes No Sig: Inhale 1 Montegut as instructed every 4 hours as needed (wheezing/shortness of breath). IPRATROPIUM BROMIDE NASAL Yes No Sig: Use 1 Montegut in the nose every morning. Urinary Bag (BARD URINARY DRAINAGE SYSTEM) misc No No Si Bags as needed. amLODIPine (NORVASC) 2.5 mg tablet Yes No Sig: Take 2.5 mg by mouth every morning. levothyroxine (SYNTHROID) 25 mcg tablet Yes No Sig: Take 1 tablet by mouth daily before breakfast. pantoprazole DR (PROTONIX) 40 mg tablet Yes No Sig: Take 40 mg by mouth every morning. potassium chloride ER (KLOR-CON) 20 mEq tablet Yes No Sig: Take 20 mEq by mouth every morning. sodium chloride 0.9 %, flush, (BD POSIFLUSH) syringe No No Si mL once daily. Facility-Administered Medications: None ALLERGIES Allergen Reactions Methylprednisolone Other: See Comments Bactrim [Sulfametho* Shortness of Breath Pravastatin Anaphylaxis Prednisone Unknown Only allergic to Methylprednisone Nfifkab-Cpt-Aes Red* Anaphylaxis REVIEW OF SYSTEM: PAIN ASSESSMENT: Negative for pain, history of chronic pain, or current treatment for a chronic pain condition. GENERAL: Fever and chills HEENT: Negative for frequent or significant headaches, No changes in hearing or vision, no nose bleeds or other nasal problems RESPIRATORY: Negative for cough, hemoptysis, wheezing, COPD, dyspnea or shortness of breath CARDIOVASCULAR: Negative for chest pain, leg swelling, hypertension, CHF or palpitations GI: No nausea, vomiting (more content not included)... Normal [facility] SEPSIS LACTATE W/ REFLEX (IN ITIAL)on 01-13-2025 Lactate [Moles/Vol] 1.1 mmol/L Normal 0.4-2.0 [facility] Comment on above: Order Comment: Speci men Type: BLOOD SPECIMENOrdering Facility: [facility] Address: [address] [place] [address] Performed By: #### S LACTR ####[facility] LABORATORYCLIA [id number] [place] [address] [place] Urinalysis complete panel (U )on 01-13-2025 Bacteria LM.HPF (Urine sed) [#/Area] Moderate Abnormal None Seen [facility] Comment on above: Order Comment: Speci men Type: URINE SPECIMENOrdering Facility: [facility] Address: [address] [place] [address] Performed By: #### 6 30-4, 69469-4 ####[facility] LABORATORYCLIA [id number] [place] [address] [place] Bilirubin Ql (U) Negative Normal Negative [facility] Comment on above: Order Comment: Speci men Type: URINE SPECIMENOrdering Facility: [facility] Address: [facility] [place] [address] Performed By: #### 6 30-4, 49875-5 ####[facility] LABORATORYCLIA [id number] [address] [place] Clarity (Unsp spec) Cloudy Abnormal Clear [facility] Comment on above: Order Comment: Speci men Type: URINE SPECIMENOrdering Facility: [facility] Address: [address] [place] [address] Performed By: #### 6 30-, 68455-9 ####[facility] LABORATORYCLIA [id number] [address] Color (U) Yellow Normal Yellow [facility] Comment on above: Order Comment: Speci men Type: URINE SPECIMENOrdering Facility: [facility] Address: [address] [place] [address] Performed By: #### 6 30, 57174-9 ####[facility] LABORATORYCLIA [id number] [address] Epithelial cells LM.HPF (Urine sed) [#/Area] Few Normal [facility] Comment on above: Order Comment: Speci men Type: URINE SPECIMENOrdering Facility: [facility] Address: [address] [place] [address] Performed By: #### 6 30, 36040-6 ####[facility] LABORATORYCLIA [id number] [place] [address] [place] Glucose Test strip (U) [Mass/Vol] Negative Normal Negative [facility] Comment on above: Order Comment: Speci men Type: URINE SPECIMENOrdering Facility: [facility] Address: [address] [place] [address] Performed By: #### 6 30-4, 07010-4 ####[facility] LABORATORYCLIA [id number] [place] [address] [place] Hemoglobin Ql (U) 1+ Abnormal Negative [facility] Comment on above: Order Comment: Speci men Type: URINE SPECIMENOrdering Facility: [facility] Address: [address] [place] [address] Performed By: #### 6 30-4, 48233-2 ####[facility] LABORATORYCLIA [id number] [place] [address] [place] Ketones Ql (U) Negative Normal Negative [facility] Comment on above: Order Comment: Speci men Type: URINE SPECIMENOrdering Facility: [facility] Address: [address] [place] [address] Performed By: #### 6 30-4, 38904-5 ####[facility] LABORATORYCLIA [id number] [address] Leukocyte esterase Test strip Ql (U) 3+ Abnormal Negative [facility] Comment on above: Order Comment: Speci men Type: URINE SPECIMENOrdering Facility: [facility] Address: [address] [place] [address] Performed By: #### 6 30-, 71042-8 ####[facility] LABORATORYCLIA [id number] [address] [place] Nitrite Ql (U) Negative Normal Negative [facility] Comment on above: Order Comment: Speci men Type: URINE SPECIMENOrdering Facility: [facility] Address: [address] [place] [address] Performed By: #### 6 30-4, 75170-2 ####[facility] LABORATORYCLIA [id number] [address] [place] pH (U) 5.0 [pH] Normal 5.0-8.0 [facility] Comment on above: Order Comment: Speci men Type: URINE SPECIMENOrdering Facility: [facility] Address: [address] [place] [address] Performed By: #### 6 30-4, 24694-7 ####[facility] LABORATORYCLIA [id number] [address] [place] Protein (U) [Mass/Vol] 2+ Abnormal Negative [facility] Comment on above: Order Comment: Speci men Type: URINE SPECIMENOrdering Facility: [facility] Address: [address] [place] [address] Performed By: #### 6 30-4, 96033-7 ####[facility] LABORATORYCLIA [id number] [place] [address] [place] RBC LM.HPF (Urine sed) [#/Area] 11-25 /HPF Abnormal 0-3 /HPF [facility] Comment on above: Order Comment: Speci men Type: URINE SPECIMENOrdering Facility: [facility] Address: [address] [place] [address] Performed By: #### 6 30-4, 29312-2 ####[facility] LABORATORYCLIA [id number] [address] STATES [facility] Specific gravity (U) [Rel density] 1.018 Normal 1.005-1.03 0 [facility] Comment on above: Order Comment: Speci men Type: URINE SPECIMENOrdering Facility: [facility] Address: [address] [place] [address] Performed By: #### 6 30-4, 81799-5 ####[facility] LABORATORYCLIA [id number] [address] [place] Urobilinogen Ql (U) Negative Normal Negative [facility] Comment on above: Order Comment: Speci men Type: URINE SPECIMENOrdering Facility: [facility] Address: [address] [place] [address] Performed By: #### 6 30-4, 28708-0 ####[facility] LABORATORYCLIA [id number] [place] [address] [place] WBC LM.HPF (Urine sed) [#/Area] /[HPF] Abnormal 0-5 /HPF [facility] Comment on above: Order Comment: Speci men Type: URINE SPECIMENOrdering Facility: [facility] Address: [address] [place] [address] Performed By: #### 6 30-4, 56929-7 ####[facility] LABORATORYCLIA [id number] [place] [address] [place] XR CHEST 2V FRONTAL/LATon XR CHEST 2V FRONTAL/LAT * * *Final Repor t* * * DATE OF EXAM: Jan 13 2025 2:24PM [id number] [id number] - XR CHEST 2V FRONTAL/LAT / PROCEDURE REASON: Chest pain, nonspecific * * * * Physician Interpretation * * * * EXAMINATION: CHEST RADIOGRAPH (2 VIEW FRONTAL and LATERAL) CLINICAL HISTORY: Chest pain, nonspecific, Cough, Other, fever MQ: [id number] EXAM DATE/TIME: 01/13/2025 2:24 PM COMPARISON: 06/11/2018 RESULT: Lines, tubes, and devices: None. Lungs and pleura: The patient is rotated to the right on the AP view. There is mild scarring or atelectasis anteriorly at the right lung base. No consolidation, significant effusion, congestion or pneumothorax. Cardiomediastinal silhouette: Stable cardiomediastinal silhouette. Bones and soft tissues: Multiple surgical clips in the soft tissues of the left upper extremity. No acute osseous abnormality. IMPRESSION: Mild scarring or atelectasis at the right lung base. No acute findings otherwise seen within the chest. Field Sales Executive: LADARIUS Transcribe Date/Time: Jan 13 2025 2:34P Dictated by : COLEEN DEAN MD This examination was interpreted and the report reviewed and electronically signed by: COLEEN DEAN MD on Jan 13 2025 2:35PM EST [id number] Normal [facility] BRIEF OP NOTon 01-12-2025 BRIEF OP NOT HNO ID: [id number] Author: ROCÍO PALMER MD Service: Interventional Radiology Author Type: Physician Type: Brief Op Note Filed: 01/12/2025 08:48 Note Text: BRIEF OPERATIVE / PROCEDURE NOTE LOG ID: [id number] SURGERY/PROCEDURE DATE: 01/12/2025 INCISION/PROCEDURE START TIME: 8:40 AM INCISION CLOSE/PROCEDURE END TIME: SURGEON(S)/PROCEDURALIST(S ) AND MAMMALOGIST(S): Surgeons and Role: * Rocío Palmer MD, MD - Primary No Additional Staff SURGERY/PROCEDURE(S): Bilateral PTN exchanges ANESTHESIA: Local FINDINGS: Successful exchanges ESTIMATED BLOOD LOSS: Minimal SPECIMENS: None COMPLICATIONS: None CLOSURE TECHNIQUE: Primary PRE-OP/PRE-PROCEDURE DIAGNOSIS: Hydronephrosis POST-OP/POST-PROCEDURE DIAGNOSIS: Same as Preop SIGNATURE: Rocío Palmer MD PATIENT NAME: Todd Delong DATE: January 12, 2025 TIME: 8:48 AM [facility] Bacteria Bld Culton 01-12-20 Bacteria identified Cx Nom (Bld) ORGANISM ID: 1 Morganella morganii GRAM STAIN: Gram negative bacilli ORGANISM ID: 1 (MORGANELLA MORGANII) ANTIBIOTIC INTERPRETATION LEVI STATUS REFERENCE RANGE Ampicillin R >16 F Susceptible <=8 , Intermediate >8 , Resistant >16 Cefazolin R >16 F Susceptible <=2 , Intermediate >2 , Resistant >=8 Ceftriaxone R 16 F Susceptible <=1 , Intermediate >1 , Resistant >=4 Cefepime S <=1 F Susceptible <=2 , Susceptible-Dose Dependent >2 , Resistant >=16 Ertapenem S <=0.25 F Susceptible <=0.5 , Intermediate >.5 , Resistant >1 Meropenem S <=0.5 F Susceptible <=1 , Intermediate >1 , Resistant >2 Ampicillin/Sulbact R >16 F Piperacillin/Tazobac R >64 F Gentamicin S <=2 F Susceptible <=2 , Intermediate >2 , Resistant >=8 Trimeth sulfameth R >2 F Ciprofloxacin R >2 F Susceptible <0.5 , Intermediate >=.5 , Resistant >=1 Abnormal [facility] Comment on above: Performed By: #### 6 00-7, 07549-5 ####[facility] LABORATORYCLIA [id number] [address] STATES OF [facility] Bacteria identified Cx Nom (Bld) ORGANISM ID: 1 Morganella morganii See Blood Culture [id number] Collected 01/12/2025 09:53 PM for susceptibility ORGANISM ID: 2 Staphylococcus epidermidis Probable contaminant. Susceptibility testing will not be performed. Call lab within 72 hours to initiate workup if clinically indicated. GRAM STAIN: Gram positive cocci in clusters Abnormal [facility] Comment on above: Performed By: #### 6 30-4, 00292-3 #### [facility] CLIA [id number] [facility] [place] CBC W Auto Differential pane l (Bld)on 01-12-2025 Basophils (Bld) [#/Vol] 0.06 10*3/uL Normal <0.11 [facility] Comment on above: Order Comment: Speci men Type: BLOOD SPECIMENOrdering Facility: [facility] Address: [address] [place] [address] Performed By: #### 5 7021-8 ####[facility] LABORATORYCLIA [id number] [address] [place] Basophils/100 WBC (Bld) 0.4 % Normal [facility] Comment on above: Order Comment: Speci men Type: BLOOD SPECIMENOrdering Facility: [facility] Address: [address] [place] [address] Performed By: #### 5 7021-8 ####[facility] LABORATORYCLIA [id number] [address] [place] [facility] Differential cell count method Nom (Bld) Auto Normal [facility] Comment on above: Order Comment: Speci men Type: BLOOD SPECIMENOrdering Facility: [facility] Address: [address] [place] [address] Performed By: #### 5 7021-8 ####[facility] LABORATORYCLIA [id number] [place] [id number] [place] Eosinophils (Bld) [#/Vol] 10*3/uL Normal <0.46 [facility] Comment on above: Order Comment: Speci men Type: BLOOD SPECIMENOrdering Facility: [facility] Address: [address] [place] [address] Performed By: #### 5 7021-8 ####[facility] LABORATORYCLIA [id number] [place] [address] [place] Eosinophils/100 WBC (Bld) 0.1 % Normal [facility] Comment on above: Order Comment: Speci men Type: BLOOD SPECIMENOrdering Facility: [facility] Address: [address] [place] [address] Performed By: #### 5 7021-8 ####[facility] LABORATORYCLIA [id number] [place] [address] [place] Erythrocyte distribution width (RBC) [Ratio] 13.6 % Normal 11.5-15.0 [facility] Comment on above: Order Comment: Speci men Type: BLOOD SPECIMENOrdering Facility: [facility] Address: [address] [place] [address] Performed By: #### 5 7021-8 ####[facility] LABORATORYCLIA [id number] [place] [address] [place] Hematocrit (Bld) [Volume fraction] 44.0 % Normal 36.0-46.0 [facility] Comment on above: Order Comment: Speci men Type: BLOOD SPECIMENOrdering Facility: [facility] Address: [address] [place] [address] Performed By: #### 5 7021-8 ####[facility] LABORATORYCLIA [id number] [place] [id number] [place] Hemoglobin (Bld) [Mass/Vol] 14.4 g/dL Normal 11.5-15.5 [facility] Comment on above: Order Comment: Speci men Type: BLOOD SPECIMENOrdering Facility: [facility] Address: [address] [place] [address] Performed By: #### 5 7021-8 ####[facility] LABORATORYCLIA [id number] [address] [place] Immature granulocytes (Bld) [#/Vol] 0.06 10*3/uL Normal <0.10 [facility] Comment on above: Order Comment: Speci men Type: BLOOD SPECIMENOrdering Facility: [facility] Address: [address] [place] [address] Performed By: #### 5 7021-8 ####[facility] LABORATORYCLIA [id number] [address] Immature granulocytes/100 WBC (Bld) 0.4 % Normal [facility] Comment on above: Order Comment: Speci men Type: BLOOD SPECIMENOrdering Facility: [facility] Address: [address] [place] [address] Performed By: #### 5 7021-8 ####[facility] LABORATORYCLIA [id number] [place] [address] [place] Lymphocytes (Bld) [#/Vol] 1.13 10*3/uL Normal 1.00-4.00 [facility] Comment on above: Order Comment: Speci men Type: BLOOD SPECIMENOrdering Facility: [facility] Address: [address] [place] [address] Performed By: #### 5 7021-8 ####[facility] LABORATORYCLIA [id number] [address] [place] Lymphocytes/100 WBC (Bld) 8.3 % Normal [facility] Comment on above: Order Comment: Speci men Type: BLOOD SPECIMENOrdering Facility: [facility] Address: [address] [place] [address] Performed By: #### 5 7021-8 ####[facility] LABORATORYCLIA [id number] [place] [address] [place] MCH (RBC) [Entitic mass] 29.0 pg Normal 26.0-34.0 [facility] Comment on above: Order Comment: Speci men Type: BLOOD SPECIMENOrdering Facility: [facility] Address: [address] [place] [address] Performed By: #### 5 7021-8 ####[facility] LABORATORYCLIA [id number] [place] [id number] [place] MCHC (RBC) [Mass/Vol] 32.7 g/dL Normal 30.5-36.0 [facility] Comment on above: Order Comment: Speci men Type: BLOOD SPECIMENOrdering Facility: [facility] Address: [address] [place] [address] Performed By: #### 5 7021-8 ####[facility] LABORATORYCLIA [id number] [address] [place] MCV (RBC) [Entitic vol] 88.7 fL Normal 80.0-100.0 [facility] Comment on above: Order Comment: Speci men Type: BLOOD SPECIMENOrdering Facility: [facility] Address: [address] [place] [address] Performed By: #### 5 7021-8 ####[facility] LABORATORYCLIA [id number] [address] [place] Monocytes (Bld) [#/Vol] 0.59 10*3/uL Normal <0.87 [facility] Comment on above: Order Comment: Speci men Type: BLOOD SPECIMENOrdering Facility: [facility] Address: [address] [place] [address] Performed By: #### 5 7021-8 ####[facility] LABORATORYCLIA [id number] [address] [place] Monocytes/100 WBC (Bld) 4.3 % Normal [facility] Comment on above: Order Comment: Speci men Type: BLOOD SPECIMENOrdering Facility: [facility] Address: [address] [place] [address] Performed By: #### 5 7021-8 ####[facility] LABORATORYCLIA [id number] [place] [address] [place] Neutrophils (Bld) [#/Vol] 11.74 10*3/uL High 1.45-7.50 [facility] Comment on above: Order Comment: Speci men Type: BLOOD SPECIMENOrdering Facility: [facility] Address: [address] [place] [address] Performed By: #### 5 7021-8 ####[facility] LABORATORYCLIA [id number] [place] [id number] [place] Neutrophils/100 WBC (Bld) 86.5 % Normal [facility] Comment on above: Order Comment: Speci men Type: BLOOD SPECIMENOrdering Facility: [facility] Address: [address] [place] [address] Performed By: #### 5 7021-8 ####[facility] LABORATORYCLIA [id number] [place] [address] [place] Nucleated RBC (Bld) [#/Vol] 10*3/uL Normal <0.01 [facility] Comment on above: Order Comment: Speci men Type: BLOOD SPECIMENOrdering Facility: [facility] Address: [address] [place] [address] Performed By: #### 5 7021-8 ####[facility] LABORATORYCLIA [id number] [place] [id number] [place] Nucleated RBC/100 WBC (Bld) [Ratio] 0.0 /100 WBC Normal [facility] Comment on above: Order Comment: Speci men Type: BLOOD SPECIMENOrdering Facility: [facility] Address: [address] [place] [address] Performed By: #### 5 7021-8 ####[facility] LABORATORYCLIA [id number] [place] [id number] [place] Platelet mean volume (Bld) [Entitic vol] 9.5 fL Normal 9.0-12.7 [facility] Comment on above: Order Comment: Speci men Type: BLOOD SPECIMENOrdering Facility: [facility] Address: [address] [facility] [id number] Performed By: #### 5 7021-8 ####[facility] LABORATORYCLIA [id number] [place] [id number] [facility] Platelets (Bld) [#/Vol] 348 10*3/uL Normal 150-400 [facility] Comment on above: Order Comment: Speci men Type: BLOOD SPECIMENOrdering Facility: [facility] Address: [address] [place] [address] Performed By: #### 5 7021-8 ####[facility] LABORATORYCLIA [id number] [place] [id number] [facility] RBC (Bld) [#/Vol] 4.96 10*6/uL Normal 3.90-5.20 [facility] Comment on above: Order Comment: Speci men Type: BLOOD SPECIMENOrdering Facility: [facility] Address: [address] [place], [place] [address] Performed By: #### 5 7021-8 ####[facility] LABORATORYCLIA [id number] [place] [id number] [facility] WBC (Bld) [#/Vol] 13.60 10*3/uL High 3.70-11.00 [facility] Comment on above: Order Comment: Speci men Type: BLOOD SPECIMENOrdering Facility: [facility] Address: [facility] [place] [id number] Performed By: #### 5 7021-8 ####[facility] LABORATORYCLIA [id number] [place] [id number] [facility] Comprehensive metabolic 2000 panelon 01-12-2025 Albumin [Mass/Vol] 3.1 g/dL Low 3.2-5.0 [facility] Comment on above: Order Comment: Speci men Type: BLOOD SPECIMENOrdering Facility: [facility] Address: [address] [place] [address] Performed By: #### 2 4323-8 ####[facility] LABORATORYCLIA [id number] [place] [address] [place] ALP [Catalytic activity/Vol] 167 U/L High 45-117 [facility] Comment on above: Order Comment: Speci men Type: BLOOD SPECIMENOrdering Facility: [facility] Address: [address] [place] [address] Performed By: #### 2 4323-8 ####[facility] LABORATORYCLIA [id number] [place] [address] [place] ALT [Catalytic activity/Vol] 19 U/L Normal 13-61 [facility] Comment on above: Order Comment: Speci men Type: BLOOD SPECIMENOrdering Facility: [facility] Address: [address] [place] [address] Result Comment: Resu lts may be falsely depressed after the administration of Sulfasalazine and/or Sulfapyridine. Performed By: #### 2 4323-8 ####[facility] LABORATORYCLIA [id number] [address] STATES OF [facility] Anion gap [Moles/Vol] 9 mmol/L Normal 5-16 [facility] Comment on above: Order Comment: Speci rafal Type: BLOOD SPECIMENOrdering Facility: [facility] Address: [address] [place] [address] Performed By: #### 2 4323-8 ####[facility] LABORATORYCLIA [id number] [place] [address] [place] AST [Catalytic activity/Vol] 31 U/L Normal 8-34 [facility] Comment on above: Order Comment: Speci men Type: BLOOD SPECIMENOrdering Facility: [facility] Address: [address] [place] [address] Result Comment: Resu lts may be falsely depressed after the administration of Sulfasalazine and/or Sulfapyridine. Performed By: #### 2 4323-8 ####[facility] LABORATORYCLIA [id number] [place] [address] [place] Bilirubin [Mass/Vol] 1.4 mg/dL High 0.2-1.0 [facility] Comment on above: Order Comment: Speci men Type: BLOOD SPECIMENOrdering Facility: [facility] Address: [address] [place] [address] Performed By: #### 2 4323-8 ####[facility] LABORATORYCLIA [id number] [place] [id number] [place] Calcium [Mass/Vol] 9.5 mg/dL Normal 8.5-10.5 [facility] Comment on above: Order Comment: Speci men Type: BLOOD SPECIMENOrdering Facility: [facility] Address: [address] [place] [address] Performed By: #### 2 4323-8 ####[facility] LABORATORYCLIA [id number] [place] [id number] [place] Chloride [Moles/Vol] 100 mmol/L Normal 98-107 [facility] Comment on above: Order Comment: Speci men Type: BLOOD SPECIMENOrdering Facility: [facility] Address: [address] [place] [address] Performed By: #### 2 4323-8 ####[facility] LABORATORYCLIA [id number] [place] [address] [place] CO2 [Moles/Vol] 25 mmol/L Normal 21-32 [facility] Comment on above: Order Comment: Speci men Type: BLOOD SPECIMENOrdering Facility: [facility] Address: [address] [place] [address] Performed By: #### 2 4323-8 ####[facility] LABORATORYCLIA [id number] [place] [id number] [place] Creatinine [Mass/Vol] 2.02 mg/dL High 0.51-0.95 [facility] Comment on above: Order Comment: Speci men Type: BLOOD SPECIMENOrdering Facility: [facility] Address: [address] [place] [address] Result Comment: Mayda ents receiving either N-Acetylcysteine (NAC) or Metamizole prior to venipuncture, may have falsely depressed results. Performed By: #### 2 4323-8 ####[facility] LABORATORYCLIA [id number] [place] [address] [place] Creatinine and Glomerular filtration rate.predicted panel (S/P/Bld) 26 mL/min/1.73m??? Low >=60 [facility] Comment on above: Order Comment: Abdon lyles Type: BLOOD SPECIMENOrdering Facility: [facility] Address: [address] [place] [address] Result Comment: Judith mated Glomerular Filtration Rate [...] actual GFR. Performed By: #### 2 4323-8 ####[facility] LABORATORYCLIA [id number] [place] [address] [place] Glucose [Mass/Vol] 97 mg/dL Normal 70-100 [facility] Comment on above: Order Comment: Abdon lyles Type: BLOOD SPECIMENOrdering Facility: [facility] Address: [address] [place] [address] Result Comment: The [place] [employer] (ADA) provides guidance for cutoff values for fasting glucose and random glucose. The ADA defines fasting as no caloric intake for at least 8 hours. Fasting plasma glucose results between 100 to 125 mg/dL indicate increased risk for diabetes (prediabetes). Fasting plasma glucose results greater than or equal to 126 mg/dL meet the criteria for diagnosis of diabetes. In the absence of unequivocal hyperglycemia, results should be confirmed by repeat testing. In a patient with classic symptoms of hyperglycemia or hyperglycemic crisis, random plasma glucose results greater than or equal to 200 mg/dL meet the criteria for diagnosis of diabetes. Reference: Standards of Medical Care in Diabetes 2016, [place] [employer]. Diabetes Care. 2016.39(Suppl 1). Results may be falsely elevated after the administration of Sulfapyridine. Results may be falsely depressed after the administration of Sulfasalazine. Performed By: #### 2 4323-8 ####[facility] LABORATORYCLIA [id number] [place] [address] [place] Potassium [Moles/Vol] 4.4 mmol/L Normal 3.5-5.1 [facility] Comment on above: Order Comment: Speci men Type: BLOOD SPECIMENOrdering Facility: [facility] Address: [address] [place] [address] Performed By: #### 2 4323-8 ####[facility] LABORATORYCLIA [id number] [place] [address] [place] Protein [Mass/Vol] 8.3 g/dL Normal 6.0-8.5 [facility] Comment on above: Order Comment: Speci men Type: BLOOD SPECIMENOrdering Facility: [facility] Address: [address] [place] [address] Performed By: #### 2 4323-8 ####[facility] LABORATORYCLIA [id number] [address] [place] Sodium [Moles/Vol] 134 mmol/L Low 136-145 [facility] Comment on above: Order Comment: Speci men Type: BLOOD SPECIMENOrdering Facility: [facility] Address: [address] [place] [address] Performed By: #### 2 4323-8 ####[facility] LABORATORYCLIA [id number] [place] [address] [place] Urea nitrogen [Mass/Vol] 21 mg/dL Normal 7-26 [facility] Comment on above: Order Comment: Speci men Type: BLOOD SPECIMENOrdering Facility: [facility] Address: [address] [place] [address] Performed By: #### 2 4323-8 ####[facility] LABORATORYCLIA [id number] [address] [place] ED Triage Noteon 01-12-2025 ED Triage Note HNO ID: [id number] Author: GILSON CARDOSO PA-C Service: ? Author Type: Physician Application Support Type: ED Triage Notes Filed: 01/13/2025 16:44 Note Text: ED TRIAGE PROVIDER NOTE Patient Name: Todd Delong Service Date: 01/12/25 BRIEF HPI: This is a 74 year old female who presents to the ED with: Fever as high as 100.5 which started around 11 AM. Patient had bilateral nephrostomy tubes replaced today by Dr. Madden in interventional radiology. Patient denies pain nausea vomiting. Denies blood thinners. Denies respiratory symptoms. Patient took Tylenol at 11 AM and 6 PM. Case was discussed with the ED pharmacist. Patient does have positive blood cultures. Recommendation was 2 g ceftriaxone, subsequently ordered BRIEF EXAM: NAD Awake and Alert Non labored breathing No focal neurological deficits There is bloody urine noted in the right nephrostomy bag, the left is draining lisa urine INITIAL WORKUP AND DECISION MAKING: Orders Placed This Encounter Sepsis Lactate with (1) Reflex CBC with Diff CMP Urinalysis w Microscopic, reflex Culture Blood Culture Blood Culture COVID AND Influenza A/B AND RSV PCR, Expedited NaCl 0.9% 500 mL iv bolus SIGNATURE: Fredis Mccarty PA-C [facility] IR EXCHANGE NEPH TUBE BILATo n 01-12-2025 IR EXCHANGE NEPH TUBE BILAT * * *Final Report* * * DATE OF EXAM: Jan 12 2025 9:02AM [facility] [id number] - IR EXCHANGE NEPH TUBE BILAT / PROCEDURE REASON: hydronephrosis * * * * Physician Interpretation * * * * PROCEDURE: GENITOURINARY CATHETER EXCHANGE Procedural Personnel Attending physician(s): Rocío Palmer MD Fellow physician(s): None Resident physician(s): None Advanced practice provider(s): None Medical Student(s): None Pre-procedure diagnosis: Hydronephrosis Post-procedure diagnosis: Same Indication: Routine scheduled exchange Additional clinical history: None PROCEDURE SUMMARY - Target organ: Bilateral [place] kidneys - Antegrade nephrostogram(s) via the existing [...] and procedure-specific equipment needs. Start of procedure: 8:40 AM End of procedure: 8:56 AM Patient position: Prone Preparation: The site was prepared and draped using all elements of maximal sterile barrier technique including sterile gloves, sterile gown, cap, mask, large sterile sheet, hand hygiene and cutaneous antisepsis. Antibiotics: None Antibiotic infusion start time: N/A Prophylactic antibiotic administered: None Contrast Contrast agent: VISPAQUE 270 Contrast volume (mL): 20 Image Guidance: Fluoroscopic guidance. Radiation Dose FLUOROSCOPIC RADIATION SUMMARY: Plane A, Air Kerma: 14.0 mGy Fluoro Time: 1:42 min:sec Radiation dose exceed 5 Gy: No If radiation dose exceeded 5 Gy, was counseling and instructional brochure provided: N/A Anesthesia/sedation Level of anesthesia/sedation: No sedation Anesthesia/sedation administered by: Not applicable Total intra-service sedation time (minutes): 0 Local anesthesia: Lidocaine Right genitourinary catheter exchange Local anesthesia was administered. Initial nephrostogram was performed. A wire was placed through the existing tube and it was removed. The new tube was advanced over the wire and position was confirmed with contrast injection. Pre-existing genitourinary catheter: 8 Burkinan skater catheter Genitourinary catheter(s) placed: 8 Burkin[place] skater catheter Findings: Adequately positioned nephrostomy catheter External catheter securement: Non-absorbable suture Left genitourinary catheter exchange Local anesthesia was administered. Initial nephrostogram was performed. A wire was placed through the existing tube and it was removed. The new tube was advanced over the wire and position was confirmed with contrast injection. Pre-existing genitourinary catheter: 8 Burkinan skater catheter Genitourinary catheter(s) placed: 8 [place]kin[place] skater catheter Findings: Initial nephrostogram demonstrates a malpositioned catheter. Final nephrostogram demonstrates an adequately positioned nephrostomy catheter External catheter securement: Non-absorbable suture Additional Details Additional description of procedure: None Equipment details: None Estimated blood loss (mL): Less than 10 Number and Type of Removed Specimens: 0: N/A Standardized report: [email or web address] Complications There were no immediate complications and no other complications. Conclusion The patient was comfortable and was transferred to the recovery room in stable condition. The procedure was performed by the: attending radiologist, without an inventory assistant. The attending radiologist performed the following procedural activities: Entire procedure IMPRESSION: UNEVENTFUL EXCHANGE OF GENITOURINARY CATHETER(S) PLAN: Catheter may be allowed to drain passively into bag until next catheter exchange. Patient may return in 10 weeks for routine exchange. Attestation Signer name: Rocío Fuchs (more content not included)... Normal [facility] NURSING PROGon 01-12-2025 NURSING PROG HNO ID: [id number] Author: KIYA MOCTEZUMA RN Service: Nursing Author Type: Registered Nurse Type: Nursing Progress Note Filed: 01/12/2025 09:04 Note Text: Bilateral nephrostomy tubes exchanged. Pt tolerated well. Pt left via wheelchair out to the lobby. Discharge instructions given to pt and next appointment scheduled. Normal [facility] Resp path 12a Pnl Spec BOBBI+p robeon 01-12-2025 Respiratory pathogens DNA and RNA 12a panel BOBBI+probe (Unsp spec) BCID INTERPRETATION: One or more Enterobacterales detected by PCR (not E. cloacae complex, E. coli, K. aerogenes, K. oxytoca, K. pneumoniae group, Proteus spp., Salmonella spp., or S. Marcescens). Confirmation and susceptibility testing to follow. Methicillin-resistant Staphylococcus epidermidis (MRSE) detected by PCR. Single positive cultures of S. epidermidis usually represent contamination. Call lab within 72 hours if further work up is required. Abnormal [facility] Comment on above: Performed By: #### 6 00-7, 39337-9 ####[facility] LABORATORYCLIA [id number] [address] [place] SEPSIS LACTATE W/ REFLEX (IN ITIAL)on 01-12-2025 Lactate [Moles/Vol] 1.0 mmol/L Normal 0.4-2.0 [facility] Comment on above: Order Comment: Speci men Type: BLOOD SPECIMENOrdering Facility: [facility] Address: [address] [place], [place] [address] [address] Performed By: #### S LACTR ####[facility] LABORATORYCLIA [id number] [address] [place] Absolute lymphocyte countOrd ered By: Rajesh Olvera on 01-07-2025 Lymphocytes Auto (Unsp spec) [#/Vol] 5.09 10*3/uL High 0.83-4.51 [facility] Absolute neutrophil countOrd ered By: Rajesh Olvera on 01-07-2025 Neutrophils (Bld) [#/Vol] 5.7 10*3/uL 2.0-7.7 [facility] Automated lymphocyte count a s percentage of total leukocytesOrdered By: Rajesh Olvera on 01-07-2025 Lymphocytes/100 WBC Auto (Unsp spec) 42.9 % High 19-41 [facility] Basophil percentageOrdered B y: Rajesh Olvera on 01-07-2025 Basophils/100 WBC (Bld) 0.7 % 0-1 [facility] Blood urea nitrogen (BUN)/cr eatinine ratioOrdered By: Rajesh Olvera on 01-07-2025 Urea nitrogen/Creatinine [Mass ratio] 11.3 mg/mg 10-20 [facility] Carbon dioxide measurementOr dered By: Rajesh Olvera on 01-07-2025 CO2 [Moles/Vol] 24.0 mmol/L 21.0-32.0 [facility] Chloride measurementOrdered By: Rajesh Olvera on 01-07-2025 Chloride [Moles/Vol] 106 mmol/L 98-107 [facility] Eosinophil percentageOrdered By: Rajesh Olvera on 01-07-2025 Eosinophils/100 WBC (Bld) 1.2 % 0-5 [facility] Erythrocyte distribution wid th ratioOrdered By: Rajesh Olvera on 01-07-2025 Erythrocyte distribution width (RBC) [Ratio] 13.5 % 11.6-14.6 [facility] Erythrocyte distribution wid th standard deviationOrdered By: Rajesh Olvera on 01-07-2025 Erythrocyte distribution width (RBC) [Entitic vol] 44.8 fL High 35.1-43.9 [facility] Erythrocyte distribution width (RBC) [Ratio] 44.8 fl High 35.1-43.9 [facility] Estimated glomerular filtrat ion rate (GFR) AmericanOrdered By: Rajesh Olvera on 01-07-2025 Estimated GFR (MDRD) Amer 29 mL/min Low >60 [facility] Comment on above: GFR Calc Glomerular filtration rate ( GFR) estimationOrdered By: Rajesh Olvera on 01-07-2025 Estimated GFR (MDRD) Non-Af Amer 24 mL/min Low >60 [facility] Comment on above: Non- GFR Calc GFR/1.73 sq M.predicted among non-blacks MDRD (S/P/Bld) [Vol rate/Area] 24 mL/min/{1.73_m2} Low >60 [facility] Comment on above: Non- GFR Calc Glucose measurementOrdered B y: Rajesh Olvera on 01-07-2025 Glucose [Mass/Vol] 106 mg/dL 74-106 [facility] Comment on above: Fasting Glucose resu lt from 100 to 125 mg/dL suggests IMPAIRED HOMEOSTASIS per A.D.A. criteria. Hematocrit Auto (Bld) [Volum e fraction]Ordered By: Rajesh Olvera on 01-07-2025 Hematocrit (Bld) [Volume fraction] 43.6 % 37-47 [facility] Hemoglobin A1c percentageOrd ered By: Rajesh Olvera on 01-07-2025 HbA1c (Bld) [Mass fraction] 5.6 % 3.8-5.6 [facility] Comment on above: Normal < 5.7 % Predi abetic 5.7 - 6.4 % Diabetic >or= 6.5 % Please note range changes. Hemoglobin measurementOrdere d By: Rajesh Olvera on 01-07-2025 Hemoglobin (Bld) [Mass/Vol] 14.1 g/dL 12.0-15.0 [facility] Immature granulocytes/100 WB C Auto (Bld)Ordered By: Rajesh Olvera on 01-07-2025 Immature granulocytes/100 WBC (Bld) 0.300 % 0.0-0.9 [facility] Comment on above: IG% - Immature Granu locytes (promyelocytes, myelocytes and metamyelocytes) > 1% indicates that a LEFT SHIFT is Present. Lymphocytes Auto (Unsp spec) [#/Vol]Ordered By: Rajesh Olvera on 01-07-2025 Lymphocytes (Bld) [#/Vol] 5.09 10*3/uL High 0.83-4.51 [facility] Lymphocytes/100 WBC Auto (Un sp spec)Ordered By: Rajesh Olvera on 01-07-2025 Lymphocytes/100 WBC (Bld) 42.9 % High 19-41 [facility] MCV (mean corpuscular volume ) determinationOrdered By: Rajesh Olvera on 01-07-2025 MCV (RBC) [Entitic vol] 90.1 fL 81-99 [facility] Mean corpuscular hemoglobin (MCH) determinationOrdered By: Rajesh Olvera on 01-07-2025 MCH (RBC) [Entitic mass] 29.1 pg 27.0-32.0 [facility] Mean corpuscular hemoglobin concentration (MCHC) determinationOrdered By: Rajesh Olvera on 01-07-2025 MCHC (RBC) [Mass/Vol] 32.3 g/dL 32-36 [facility] Mean platelet volume determi nationOrdered By: Rajesh Olvera on 01-07-2025 Platelet mean volume (Bld) [Entitic vol] 9.8 fL 6.2-12.0 [facility] Monocyte percentageOrdered B y: Rajesh Olvera on 01-07-2025 Monocytes/100 WBC (Bld) 6.8 % 0-10 [facility] Neutrophil percentageOrdered By: Rajesh Olvera on 01-07-2025 Neutrophils/100 WBC (Bld) 48.1 % 47-70 [facility] Nucleated red blood cell per centageOrdered By: Rajesh Olvera on 01-07-2025 Nucleated RBC/100 WBC (Bld) [Ratio] 0 % 0-5 [facility] Phosphorus measurementOrdere d By: Rajesh Olvera on 01-07-2025 Phosphorus Level 3.8 mg/dL 2.5-4.9 [facility] Platelet countOrdered By: Shayan Olvera on 01-07-2025 Platelets (Bld) [#/Vol] 364 10*3/uL 150-450 [facility] Potassium measurementOrdered By: Rajesh Olvera on 01-07-2025 Potassium [Moles/Vol] 4.4 mmol/L 3.5-5.1 [facility] Protein/Creatinine (U) [Mass ratio]Ordered By: Rajesh Olvera on 01-07-2025 Urine Protein/Creatinine Ratio 1750 mg/g CRE High 0-200 [facility] RBC Auto (Bld) [#/Vol]Ordere d By: Rajesh Olvera on 01-07-2025 RBC (Bld) [#/Vol] 4.84 10*6/uL 4.2-5.4 [facility] Random urine protein measure mentOrdered By: Rajesh Olvera on 01-07-2025 Protein (U) [Mass/Vol] 158.9 mg/dL High 0.0-11.8 [facility] Reactive lymphocyte countOrd ered By: Rajesh Olvera on 01-07-2025 Reactive Lymphocytes 1+ [facility] Serum or plasma albumin yunior urement (mass/volume)Ordered By: Rajesh Olvera on 01-07-2025 Albumin [Mass/Vol] 3.0 g/dL Low 3.2-5.0 [facility] Serum or plasma calcium yunior urement (mass/volume)Ordered By: Rajesh Olvera on 01-07-2025 Calcium [Mass/Vol] 8.9 mg/dL 8.5-10.1 [facility] Serum or plasma creatinine m easurement (mass/volume)Ordered By: Rajesh Olvera on 01-07-2025 Creatinine [Mass/Vol] 2.12 mg/dL High 0.55-1.02 [facility] Comment on above: The validity of the calculated GFR & GFRAA in patients over 70 years has not been determined. Clinical correlation is essential. Serum or plasma urea nitroge n measurement (mass/volume)Ordered By: Rajesh Olvera on 01-07-2025 Urea nitrogen [Mass/Vol] 24 mg/dL High 7-18 [facility] Sodium levelOrdered By: Jack Olvera on 01-07-2025 Sodium [Moles/Vol] 137 mmol/L 136-145 [facility] Urine creatinine measurement (mass/volume)Ordered By: Rajesh Olvera on 01-07-2025 Creatinine (U) [Mass/Vol] 90.80 mg/dL NO RANGE EST. [facility] Urine protein/creatinine mas s ratioOrdered By: Rajesh Olvera on 01-07-2025 Protein/Creatinine (U) [Mass ratio] 1750 mg/g CRE High 0-200 [facility] White blood cell (WBC) count Ordered By: Rajesh Olvera on 01-07-2025 WBC (Bld) [#/Vol] 11.9 10*3/uL High 4.4-11.0 [facility] CNOVon 12-22-2024 CNOV Office Visit (URMASS ) -- TODD DELONG ([id number]) 1950 F Date Time Provider Department 12/22/24 9:00 AM JIN ANTONIO TIHS During your visit today, we recorded the following information about you: Jin Antonio MD 12/22/2024 9:12 AM Signed ESTABLISHED PATIENT OFFICE VISIT The patient is here for follow-up of bilateral ureteral obstruction. She is tolerating the nephrostomy tubes. Her energy levels continues to slowly improve. Her most recent renal function was December 06. The creatinine was 1.77. LAB RESULTS Creatinine Date Value Ref Range Status 12/06/2024 1.77 (H) 0.51 - 0.95 mg/dL Final Comment: Patients receiving either N-Acetylcysteine (NAC) or Metamizole prior to venipuncture, may have falsely depressed results. No results found for: PSA, PSASC No results found for: UGLUCPOC, UBILIPOC, UKETONPOC, USGPOC, UHBPOC, UPHPOC, UPROPOC, UUROPOC, UNITPOC, BCPOC, UCOLPOC, UCLARPOC] ALLERGIES Allergen Reactions Methylprednisolone Other: See Comments Bactrim [Sulfametho* Shortness of Breath Pravastatin Anaphylaxis Prednisone Unknown Only allergic to Methylprednisone Ifmmvws-Fxh-Yza Red* Anaphylaxis MEDICATIONS: sodium chloride 0.9 %, flush, (BD POSIFLUSH) syringe 10 mL once daily. Urinary Bag (BARD URINARY DRAINAGE SYSTEM) misc 2 Bags as needed. levothyroxine (SYNTHROID) 25 mcg tablet Take 1 tablet by mouth daily before breakfast. IPRATROPIUM BROMIDE NASAL Use 1 Montegut in the nose every morning. pantoprazole DR (PROTONIX) 40 mg tablet Take 40 mg by mouth every morning. potassium chloride ER (KLOR-CON) 20 mEq tablet Take 20 mEq by mouth every morning. amLODIPine (NORVASC) 2.5 mg tablet Take 2.5 mg by mouth every morning. 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 FAXED for copy Renal failure [...] Dr. 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, no longer follows with fitter/welder LX REMOVAL RENAL MASS NEPHROSTOMY TUBE ([place]) 2022 PAST SURGICAL HISTORY OF gallbladder PAST [...] normal respiratory effort ASSESSMENT/PLAN: 1. Hydronephrosis, unspecified hydronephro (more content not included)... Normal [facility] Basic metabolic 2000 panelon 12-06-2024 Anion gap [Moles/Vol] 5 mmol/L Normal 5-16 [facility] Comment on above: Order Comment: Speci men Type: BLOOD SPECIMENOrdering Facility: [facility] Address: [address] [place] [address] Performed By: #### 2 777-1, 57931-4, 47298-7, 77955-4 ####[facility] LABORATORYCLIA [id number] [place] [address] [place] Calcium [Mass/Vol] 8.9 mg/dL Normal 8.5-10.5 [facility] Comment on above: Order Comment: Speci men Type: BLOOD SPECIMENOrdering Facility: [facility] Address: [address] [place] [address] Performed By: #### 2 777-1, , 53076-8, 46939-3 ####[facility] LABORATORYCLIA [id number] [place] [id number] [place] Chloride [Moles/Vol] 109 mmol/L High 98-107 [facility] Comment on above: Order Comment: Speci men Type: BLOOD SPECIMENOrdering Facility: [facility] Address: [address] [place] [address] Performed By: #### 2 777-1, , 61270-9, 84653-5 ####[facility] LABORATORYCLIA [id number] [place] [id number] [place] CO2 [Moles/Vol] 24 mmol/L Normal 21-32 [facility] Comment on above: Order Comment: Speci men Type: BLOOD SPECIMENOrdering Facility: [facility] Address: [address] [place] [address] Performed By: #### 2 777-1, , 63077-9, 34692-1 ####[facility] LABORATORYCLIA [id number] [place] [id number] [place] Creatinine [Mass/Vol] 1.77 mg/dL High 0.51-0.95 [facility] Comment on above: Order Comment: Speci men Type: BLOOD SPECIMENOrdering Facility: [facility] Address: [address] [place] [address] Result Comment: Mayda ents receiving either N-Acetylcysteine (NAC) or Metamizole prior to venipuncture, may have falsely depressed results. Performed By: #### 2 777-1, , 43424-2, 69405-8 ####[facility] LABORATORYCLIA [id number] [place] [id number] [place] Creatinine and Glomerular filtration rate.predicted panel (S/P/Bld) 30 mL/min/1.73m??? Low >=60 [facility] Comment on above: Order Comment: Abdon lyles Type: BLOOD SPECIMENOrdering Facility: [facility] Address: [address] [place] [id number] Result Comment: Judith mated Glomerular Filtration Rate [...] actual GFR. Performed By: #### 2 777-1, 12114-5, 80705-9, 52720-7 ####[facility] LABORATORYCLIA [id number] [place] [address] [place] Glucose [Mass/Vol] 78 mg/dL Normal 70-100 [facility] Comment on above: Order Comment: Abdon lyles Type: BLOOD SPECIMENOrdering Facility: [facility] Address: [address] [place] [address] Result Comment: The [place] Diabetes [employer] (ADA) provides guidance for cutoff values for fasting glucose and random glucose. The ADA defines fasting as no caloric intake for at least 8 hours. Fasting plasma glucose results between 100 to 125 mg/dL indicate increased risk for diabetes (prediabetes). Fasting plasma glucose results greater than or equal to 126 mg/dL meet the criteria for diagnosis of diabetes. In the absence of unequivocal hyperglycemia, results should be confirmed by repeat testing. In a patient with classic symptoms of hyperglycemia or hyperglycemic crisis, random plasma glucose results greater than or equal to 200 mg/dL meet the criteria for diagnosis of diabetes. Reference: Standards of Medical Care in Diabetes 2016, [place] [employer]. Diabetes Care. 2016.39(Suppl 1). Results may be falsely elevated after the administration of Sulfapyridine. Results may be falsely depressed after the administration of Sulfasalazine. Performed By: #### 2 777-1, 75218-8, 24996-2, 51978-2 ####[facility] LABORATORYCLIA [id number] [place] [id number] [place] Potassium [Moles/Vol] 4.2 mmol/L Normal 3.5-5.1 [facility] Comment on above: Order Comment: Speci men Type: BLOOD SPECIMENOrdering Facility: [facility] Address: [address] [place] [address] Performed By: #### 2 777-1, 50804-1, 77740-5, 59924-5 ####[facility] LABORATORYCLIA [id number] [place] [id number] [place] Sodium [Moles/Vol] 138 mmol/L Normal 136-145 [facility] Comment on above: Order Comment: Speci men Type: BLOOD SPECIMENOrdering Facility: [facility] Address: [address] [place] [address] Performed By: #### 2 777-1, 36649-5, 40205-4, 41358-6 ####[facility] LABORATORYCLIA [id number] [address] [place] Urea nitrogen [Mass/Vol] 20 mg/dL Normal 7-26 [facility] Comment on above: Order Comment: Speci men Type: BLOOD SPECIMENOrdering Facility: [facility] Address: [address] [place] [address] Performed By: #### 2 777-1, 71562-9, 58126-3, 17009-4 ####[facility] LABORATORYCLIA [id number] [place] [id number] [place] CBC panel Auto (Bld)on 12-06 Erythrocyte distribution width (RBC) [Ratio] 13.8 % Normal 11.5-15.0 [facility] Comment on above: Order Comment: Speci men Type: BLOOD SPECIMENOrdering Facility: [facility] Address: [address] [place] [address] Performed By: #### 5 8410-2 ####[facility] LABORATORYCLIA [id number] [place] [id number] [place] Hematocrit (Bld) [Volume fraction] 36.5 % Normal 36.0-46.0 [facility] Comment on above: Order Comment: Speci men Type: BLOOD SPECIMENOrdering Facility: [facility] Address: [address] [place] [address] Performed By: #### 5 8410-2 ####[facility] LABORATORYCLIA [id number] [place] [address] [place] Hemoglobin (Bld) [Mass/Vol] 11.9 g/dL Normal 11.5-15.5 [facility] Comment on above: Order Comment: Speci men Type: BLOOD SPECIMENOrdering Facility: [facility] Address: [address] [place] [address] Performed By: #### 5 8410-2 ####[facility] LABORATORYCLIA [id number] [place] [address] [place] MCH (RBC) [Entitic mass] 29.4 pg Normal 26.0-34.0 [facility] Comment on above: Order Comment: Speci men Type: BLOOD SPECIMENOrdering Facility: [facility] Address: [address] [place] [address] Performed By: #### 5 8410-2 ####[facility] LABORATORYCLIA [id number] [place] [address] [place] MCHC (RBC) [Mass/Vol] 32.6 g/dL Normal 30.5-36.0 [facility] Comment on above: Order Comment: Speci men Type: BLOOD SPECIMENOrdering Facility: [facility] Address: [address] [place], [place] [address] Performed By: #### 5 8410-2 ####[facility] LABORATORYCLIA [id number] [place] [address] [place] MCV (RBC) [Entitic vol] 90.1 fL Normal 80.0-100.0 [facility] Comment on above: Order Comment: Speci men Type: BLOOD SPECIMENOrdering Facility: [facility] Address: [address] [place] [address] Performed By: #### 5 8410-2 ####[facility] LABORATORYCLIA [id number] [place] [id number] [place] Nucleated RBC (Bld) [#/Vol] 10*3/uL Normal <0.01 [facility] Comment on above: Order Comment: Speci men Type: BLOOD SPECIMENOrdering Facility: [facility] Address: [address] [place] [address] Performed By: #### 5 8410-2 ####[facility] LABORATORYCLIA [id number] [place] [address] [place] Platelet mean volume (Bld) [Entitic vol] 9.6 fL Normal 9.0-12.7 [facility] Comment on above: Order Comment: Speci men Type: BLOOD SPECIMENOrdering Facility: [facility] Address: [address] [place] [address] Performed By: #### 5 8410-2 ####[facility] LABORATORYCLIA [id number] [place] [address] [place] Platelets (Bld) [#/Vol] 370 10*3/uL Normal 150-400 [facility] Comment on above: Order Comment: Speci men Type: BLOOD SPECIMENOrdering Facility: [facility] Address: [address] [place] [address] Performed By: #### 5 8410-2 ####[facility] LABORATORYCLIA [id number] [place] [address] [place] RBC (Bld) [#/Vol] 4.05 10*6/uL Normal 3.90-5.20 [facility] Comment on above: Order Comment: Speci men Type: BLOOD SPECIMENOrdering Facility: [facility] Address: [address] [place] [address] Performed By: #### 5 8410-2 ####[facility] LABORATORYCLIA [id number] [place] [address] [place] WBC (Bld) [#/Vol] 11.74 10*3/uL High 3.70-11.00 [facility] Comment on above: Order Comment: Speci men Type: BLOOD SPECIMENOrdering Facility: [facility] Address: [address], [place] [address] Performed By: #### 5 8410-2 ####[facility] LABORATORYCLIA [id number] [place] [address] [place] CNDSon 12-06-2024 CNDS HNO ID: [id number] Author: COLEEN FARLEY MD Service: Hospital Medicine Author Type: Nurse Practitioner Type: Discharge Summary Filed: 12/08/2024 18:50 Note Text: -- Attestation signed by Coleen Farley MD at 12/08/2024 6:50 PM Seen and evaluated independently of the nurse practitioner. Hospital course The patient is a 74-year-old female history of cancer status posttreatment with nephrostomy tubes presented to the hospital with decreased output from the left nephrostomy tube. Patient was brought into the hospital with urology consult. Patient was initially started on antibiotic. Urology was following. Patient got new nephrostomy tube placed by IR on the left. Culture unfortunately showed mixed microbiota. Urology recommended a weeks worth of antibiotics at discharge and patient was subsequently given Keflex Physical exam: General: Female, pleasant, patient is alert and oriented x3 and is in no acute respiratory distress HEENT: Normal cephalic, atraumatic, PERRLA Lungs: Clear to auscultation, no wheezing, rales, or rhonchi. Cardiac: Regular rhythm and rate, no murmurs, no rubs. Abdomen: Soft, nontender, nondistended, bowel sounds are active. Nephrostomy tubes noted Extremities: No edema, cyanosis, or clubbing. Skin: No rashes or breakdown. Musculoskeletal: Normal MS exam, moves all extremities Lymphatic: Negative cervical, supra-clavicular, groin lymphadenopathy. Neurologic: Cranial nerves from II-XII intact grossly, no focal deficits. Psychiatry: Normal affect. -- DISCHARGE SUMMARY PATIENT NAME: Todd Delong ADMISSION DATE: 12/05/2024 DISCHARGE DATE: December 06, 2024 Attending Physician: Coleen Farley MD Code Status: Full Code Highest Readmission Risk Score: 18 The 30 day readmissions risk score is derived from an internally validated risk model which evaluates patient level characteristics, utilization history, medication orders and lab results up until the day of discharge. Patients with a score of 40 or above are considered highest risk for readmission. Specific patient level drivers will be listed at the bottom of the summary. Reason for Hospitalization: Left nephrostomy tube dislodgement Principal Problem: Hydronephrosis of left kidney (POA: Yes) Active Problems: Pyelonephritis (POA: Unknown) Nephrostomy tube displaced (HCC) (POA: Unknown) Resolved Problems: * No resolved hospital problems. * Operations During Hospitalization: None Procedures During Hospitalization: Left nephrostomy replacement; CT of abdomen/pelvis Hospital Course: Ms. Delong is a vinay 74 year old female patient with a history of asthma,hypertension, hypothyroidism, ovarian and cervical cancer status post radiation, Stage III CKD, and chronic hydroureter status post bilateral nephrostomy tube placement who was admitted on December 05, 2024 to undergo left nephrostomy tube replacement. Ms Delong stated the day leading up to this admission, she recollects having the tube in place. Patient informed staff, she felt a slight tugging sensation when she got up to take a walk. At that time, she repositioned the tubing/bag. Following this, she went to the bathroom and on her way back the patient's alerted her, the tube was on the floor.Upon admission, she denied fever, chills, hematuria, purulent drainage and erythema to insertion site. Urological services was consulted. Of note, the patient's right nephrostomy tube was noted to be draining yellow colored urine. Urinalysis showed 3+ leukocytes, greater than 5WBC/HPF, 6-10 RBC/HPF, and many bacteria. Urine culture obtained from right NT tubing showed mixed microbiota. Creatinine was noted at 1.85 ( baseline 1.7). WBC- 12.29. CT scan of the abdomen/pelvis illustrated severe left-sided hydroureteronephrosis; right-sided percutaneous nephrostomy tube with no hydronephrosis and colonic diverticulosis. IV Ceftriaxone was initiated. Interventional radiologist, Dr. Clark, placed a 10 Burkinan left nephrostomy tube using existing tract. Patient tolerated procedure well. Both sites were noted to be draining without difficulty, Dr. Duarte recommended sending the patient home with a 7 day course of cephalexin. The patient was evaluated at bedside. She wad found wake and alert appearing in no acute distress. She is eating and drinking without difficulty Vital signs stable, she is afebrile REVIEW OF SYSTEMS Review of Systems Constitutional: Negative for chills, fatigue and fever. Respiratory: Negative for cough, chest tightness, shortness of breath and wheezing. Cardiovascular: Negative for chest pain. Gastrointestinal: Negative for abdominal distention, abdominal pain, constipation, diarrhea, nausea and vomiting. Physical Exam Vitals and nursing note reviewed. Consti (more content not included)... Normal [facility] Hepatic function 2000 panelo n 12-06-2024 Albumin [Mass/Vol] 2.5 g/dL Low 3.2-5.0 [facility] Comment on above: Order Comment: Abdon lyles Type: BLOOD SPECIMENOrdering Facility: [facility] Address: [address] [place] [address] Performed By: #### 2 777-1, 27357-8, 86270-9, 80385-4 ####[facility] LABORATORYCLIA [id number] [place] [address] [place] ALP [Catalytic activity/Vol] 127 U/L High 45-117 [facility] Comment on above: Order Comment: Abdon lyles Type: BLOOD SPECIMENOrdering Facility: [facility] Address: [address] [place] [id number] Performed By: #### 2 777-1, 26987-8, 35635-6, 34964-5 ####[facility] LABORATORYCLIA [id number] [address] [place] ALT [Catalytic activity/Vol] U/L Low 13-61 [facility] Comment on above: Order Comment: Speci men Type: BLOOD SPECIMENOrdering Facility: [facility] Address: [address] [place] [address] Result Comment: Resu lts may be falsely depressed after the administration of Sulfasalazine and/or Sulfapyridine. Performed By: #### 2 777-1, , 07808-0, 70454-8 ####[facility] LABORATORYCLIA [id number] [address] [place] AST [Catalytic activity/Vol] 13 U/L Normal 8-34 [facility] Comment on above: Order Comment: Speci men Type: BLOOD SPECIMENOrdering Facility: [facility] Address: [address] [place] [address] Result Comment: Resu lts may be falsely depressed after the administration of Sulfasalazine and/or Sulfapyridine. Performed By: #### 2 777-1, , 37799-0, 18100-4 ####[facility] LABORATORYCLIA [id number] [place] [address] [place] Bilirubin [Mass/Vol] 0.6 mg/dL Normal 0.2-1.0 [facility] Comment on above: Order Comment: Speci men Type: BLOOD SPECIMENOrdering Facility: [facility] Address: [address] [place] [address] Performed By: #### 2 777-1, , 04548-5, 05977-0 ####[facility] LABORATORYCLIA [id number] [place] [address] [place] [facility] [place] Bilirubin.conjugated [Mass/Vol] 0.2 mg/dL Normal 0.0-0.4 [facility] Comment on above: Order Comment: Speci men Type: BLOOD SPECIMENOrdering Facility: [facility] Address: [address] [place] [address] Performed By: #### 2 777-1, , 54440-9, 10341-3 ####[facility] LABORATORYCLIA [id number] [place] [address] [place] Protein [Mass/Vol] 6.9 g/dL Normal 6.0-8.5 [facility] Comment on above: Order Comment: Speci men Type: BLOOD SPECIMENOrdering Facility: [facility] Address: [address] [place] [address] Performed By: #### 2 777-1, , 18266-9, 42560-5 ####[facility] LABORATORYCLIA [id number] [place] [id number] [place] Magnesium [facility] 12-06 Magnesium [Mass/Vol] 1.7 mg/dL Normal 1.6-2.6 [facility] Comment on above: Order Comment: Speci men Type: BLOOD SPECIMENOrdering Facility: [facility] Address: [address] [place] [address] Performed By: #### 2 777-1, , , 83424-3 ####[facility] LABORATORYCLIA [id number] [place] [id number] [place] Phosphate SerPl-mCncon 12-06 Phosphate [Mass/Vol] 4.6 mg/dL Normal 2.5-4.9 [facility] Comment on above: Order Comment: Speci [facility] Type: BLOOD SPECIMENOrdering Facility: [facility] Address: [address] [place] [address] Result Comment: Elev ated m-protein (paraprotein) levels in the serum may be exhibited in patients with monoclonal gammopathies, causing falsely elevated inorganic phosphorus results. Performed By: #### 2 777-1, , 21823-4, 39813-0 ####[facility] LABORATORYCLIA [id number] [place] [id number] [place] ALLIED HEALTHon 12-05-2024 ALLIED HEALTH HNO ID: [id number] Author: COOPER JIMENEZ Tech Service: ? Author Type: Crm Business Analyst Type: Allied Health Filed: 12/05/2024 03:28 Note Text: -- Summary: ct -- Radiology Service Progress Note PATIENT NAME: Todd Delong DATE OF SERVICE: December 05, 2024 TIME: 3:28 AM PATIENT IDENTITY VERIFICATION COMPLETED USING TWO (2) IDENTIFIERS: Name and Date of confirmed by patient verbally and Name and Date of confirmed by identification band. FALL SCREENING: Has the patient had 2 falls in the last year or 1 fall with injury or currently using an Ambulatory Assistive Device (Walker, Cane, Wheelchair, Crutches, etc.)? No PATIENT GENDER DATA: Assigned female at . status: : No status: NO. PATIENT RELEVANT IMPLANT DATA REVIEWED: Not Applicable PATIENT PRESENTS WITH AN IMPLANTABLE OR ATTACHED TREE DOCTOR: No RADIOLOGY DEPARTMENT: CT; Exam(s) Completed: Abdomen/Pelvis PERIPHERAL IV DATA: Not applicable SIGNED BY: Ad Butts December 05, 2024 3:28 AM [facility] BRIEF OP NOTon 12-05-2024 BRIEF OP NOT HNO ID: [id number] Author: JONA CLARK MD Service: Interventional Radiology Author Type: Physician Type: Brief Op Note Filed: 12/05/2024 13:51 Note Text: BRIEF OPERATIVE / PROCEDURE NOTE LOG ID: [id number] SURGERY/PROCEDURE DATE: 12/05/2024 INCISION/PROCEDURE START TIME: 1:42 PM INCISION CLOSE/PROCEDURE END TIME: 1:47 PM SURGEON(S)/PROCEDURALIST(S ) AND MAMMALOGIST(S): Surgeons and Role: * Jona Clark MD - Primary No Additional Staff SURGERY/PROCEDURE(S): Left nephrostomy replacement ANESTHESIA: Local FINDINGS: Completely dislodged 10 Burkinan left nephrostomy tube replaced using existing tract. ESTIMATED BLOOD LOSS: Scant SPECIMENS: Urine for cultures. COMPLICATIONS: None PRE-OP/PRE-PROCEDURE DIAGNOSIS: Dislodged left nephrostomy. POST-OP/POST-PROCEDURE DIAGNOSIS: Same as Preop SIGNATURE: Jona Clark MD PATIENT NAME: Todd Delong DATE: December 05, 2024 TIME: 1:49 PM [facility] Bacteria Ur Culton 5 Bacteria identified Cx Nom (U) ORGANISM ID: 1 >=100,000 CFU/ml Mixed microbiota including 3 different colony types, and no one type predominating. No further workup. [facility] Comment on above: Performed By: #### 6 30-4 ####[facility] LABORATORYCLIA [id number] [address] OF [facility] Bacteria identified Cx Nom (U) ORGANISM ID: 1 >=100,000 CFU/ml Mixed microbiota No further workup. Mixed microbiota can be due to???urine???contamination with skin bacteria at time of collection or presence of a long-term urinary catheter. If a new culture is needed, please consider re-education of the patient on proper midstream co llection technique or straight catheterization for???urine???collection. [facility] Comment on above: Performed By: #### 6 30-4, 26794-7 #### [facility] CLIA [id number] [address] [place] [address] [place] CBC W Auto Differential pane l (Bld)on 12-05-2024 Basophils (Bld) [#/Vol] 0.00 10*3/uL Normal <0.11 [facility] Comment on above: Order Comment: Speci men Type: BLOOD SPECIMEN Ordering Facility: [facility] Address: [address] [place] [address] Performed By: #### S TFREV, 30971-2 #### [facility] CLIA [id number] [address] [place], [place] [id number] [place] Basophils/100 WBC (Bld) 0.0 % Normal [facility] Comment on above: Order Comment: Speci men Type: BLOOD SPECIMEN Ordering Facility: [facility] Address: [address] [place] [address] Performed By: #### S TFREV, 97252-3 #### [facility] CLIA [id number] [address] [place] [address] [place] Differential cell count method Nom (Bld) Manual Normal [facility] Comment on above: Order Comment: Speci men Type: BLOOD SPECIMEN Ordering Facility: [facility] Address: [address] [place] [address] Performed By: #### S TFREV, 67663-7 #### [facility] CLIA [id number] [address] [place] [address] [place] Eosinophils (Bld) [#/Vol] 0.12 10*3/uL Normal <0.46 [facility] Comment on above: Order Comment: Speci men Type: BLOOD SPECIMEN Ordering Facility: [facility] Address: [address] [place] [address] Performed By: #### S TFREV, 98111-7 #### [facility] CLIA [id number] [address] [place] [address] [place] Eosinophils/100 WBC (Bld) 1.0 % Normal [facility] Comment on above: Order Comment: Speci men Type: BLOOD SPECIMEN Ordering Facility: [facility] Address: [address] [place] [address] Performed By: #### S TFREV, 07835-7 #### [facility] CLIA [id number] [address] [place] [address] [place] Erythrocyte distribution width (RBC) [Ratio] 13.7 % Normal 11.5-15.0 [facility] Comment on above: Order Comment: Speci men Type: BLOOD SPECIMEN Ordering Facility: [facility] Address: [address] [place] [address] Performed By: #### S TFREV, 10051-8 #### [facility] CLIA [id number] [address] [place] [address] [place] Hematocrit (Bld) [Volume fraction] 41.7 % Normal 36.0-46.0 [facility] Comment on above: Order Comment: Speci men Type: BLOOD SPECIMEN Ordering Facility: [facility] Address: [address] [place] [address] Performed By: #### S TFRCELESTINO, 95464-1 #### [facility] CLIA [id number] [address] [place] [address] [place] Hemoglobin (Bld) [Mass/Vol] 13.6 g/dL Normal 11.5-15.5 [facility] Comment on above: Order Comment: Speci men Type: BLOOD SPECIMEN Ordering Facility: [facility] Address: [address] [place] [address] Performed By: #### S TFRCELESTINO, 25067-1 #### [facility] CLIA [id number] [address] [place] [address] [place] Lymphocytes (Bld) [#/Vol] 7.13 10*3/uL High 1.00-4.00 [facility] Comment on above: Order Comment: Speci men Type: BLOOD SPECIMEN Ordering Facility: [facility] Address: [address] [place] [address] Performed By: #### S TFRCELESTINO, 37483-6 #### [facility] CLIA [id number] [address] [place] [address] [place] Lymphocytes/100 WBC (Bld) 58.0 % Normal [facility] Comment on above: Order Comment: Speci men Type: BLOOD SPECIMEN Ordering Facility: [facility] Address: [address] [place] [address] Performed By: #### S TFREV, 68787-9 #### [facility] CLIA [id number] [address] [place] [address] [place] MCH (RBC) [Entitic mass] 29.5 pg Normal 26.0-34.0 [facility] Comment on above: Order Comment: Speci men Type: BLOOD SPECIMEN Ordering Facility: [facility] Address: [address] [place] [address] Performed By: #### S TFREV, 69051-7 #### [facility] CLIA [id number] [address] [place] [address] [place] MCHC (RBC) [Mass/Vol] 32.6 g/dL Normal 30.5-36.0 [facility] Comment on above: Order Comment: Speci men Type: BLOOD SPECIMEN Ordering Facility: [facility] Address: [address] [place] [address] Performed By: #### S TFREV, 89147-5 #### [facility] CLIA [id number] [address] [place] [address] [place] MCV (RBC) [Entitic vol] 90.5 fL Normal 80.0-100.0 [facility] Comment on above: Order Comment: Speci men Type: BLOOD SPECIMEN Ordering Facility: [facility] Address: [address] [place] [address] Performed By: #### S TFREV, 21518-9 #### [facility] CLIA [id number] [address] [place] [address] [place] Monocytes (Bld) [#/Vol] 0.74 10*3/uL Normal <0.87 [facility] Comment on above: Order Comment: Speci men Type: BLOOD SPECIMEN Ordering Facility: [facility] Address: [address] [place] [address] Performed By: #### S TFREV, 97781-6 #### [facility] CLIA [id number] [address] [place] [address] [place] Monocytes/100 WBC (Bld) 6.0 % Normal [facility] Comment on above: Order Comment: Speci men Type: BLOOD SPECIMEN Ordering Facility: [facility] Address: [address] [place] [address] Performed By: #### S TFREV, 62672-5 #### [facility] CLIA [id number] [address] [place] [address] [place] Neutrophils (Bld) [#/Vol] 4.30 10*3/uL Normal 1.45-7.50 [facility] Comment on above: Order Comment: Speci men Type: BLOOD SPECIMEN Ordering Facility: [facility] Address: [address] [place] [address] Performed By: #### S TFREV, 00582-7 #### [facility] CLIA [id number] [address] [place] [address] [place] Neutrophils/100 WBC (Bld) 35.0 % Normal [facility] Comment on above: Order Comment: Speci men Type: BLOOD SPECIMEN Ordering Facility: [facility] Address: [address] [place] [address] Performed By: #### S TFREV, 14849-5 #### [facility] CLIA [id number] [address] [place] [address] [place] Nucleated RBC (Bld) [#/Vol] 10*3/uL Normal <0.01 [facility] Comment on above: Order Comment: Speci men Type: BLOOD SPECIMEN Ordering Facility: [facility] Address: [address] [place] [address] Performed By: #### S TFREV, 82591-3 #### [facility] CLIA [id number] [address] [place] [address] [place] Nucleated RBC/100 WBC (Bld) [Ratio] 0.0 /100 WBC Normal [facility] Comment on above: Order Comment: Speci men Type: BLOOD SPECIMEN Ordering Facility: [facility] Address: [address] [place] [address] Performed By: #### S TFREV, 66025-8 #### [facility] CLIA [id number] [address] [place] [address] [place] Ovalocytes LM Ql (Bld) Few Normal [facility] Comment on above: Order Comment: Speci men Type: BLOOD SPECIMEN Ordering Facility: [facility] Address: [address] [place], [place] [address] [address] Performed By: #### S TFREV, 13743-1 #### [facility] CLIA [id number] [address] [place] [address] [place] Platelet mean volume (Bld) [Entitic vol] 9.3 fL Normal 9.0-12.7 [facility] Comment on above: Order Comment: Speci men Type: BLOOD SPECIMEN Ordering Facility: [facility] Address: [place] [address] Performed By: #### S TFREV, 73548-7 #### [facility] CLIA [id number] [address] [place] [address] [place] Platelets (Bld) [#/Vol] 423 10*3/uL High 150-400 [facility] Comment on above: Order Comment: Speci men Type: BLOOD SPECIMEN Ordering Facility: [facility] Address: [facility] [place] [address] Performed By: #### S TFREV, 56556-7 #### [facility] CLIA [id number] [address] [place] [address] [place] Platelets Estimate (Bld) [#/Vol] Increased Normal [facility] Comment on above: Order Comment: Speci men Type: BLOOD SPECIMEN Ordering Facility: [facility] Address: [facility] [place] [address] Performed By: #### S TFREV, 87841-6 #### [facility] CLIA [id number] [address] [place] [address] [place] Polychromasia LM Ql (Bld) Slight Normal [facility] Comment on above: Order Comment: Speci men Type: BLOOD SPECIMEN Ordering Facility: [facility] Address: [facility] [place] [address] Performed By: #### S TFREV, 11656-6 #### [facility] CLIA [id number] [address] [place] [address] [place] RBC (Bld) [#/Vol] 4.61 10*6/uL Normal 3.90-5.20 [facility] Comment on above: Order Comment: Speci men Type: BLOOD SPECIMEN Ordering Facility: [facility] Address: [facility] [place] [address] Performed By: #### S TFREV, 54559-0 #### [facility] CLIA [id number] [address] [place] [address] OF [facility] RED CELL MORPH Reviewed: see result s of individual morphologies Normal [facility] Comment on above: Order Comment: Speci men Type: BLOOD SPECIMEN Ordering Facility: [facility] Address: [address] [place] [address] Performed By: #### S TFREV, 80098-3 #### [facility] CLIA [id number] [address] [place] [address] [place] WBC (Bld) [#/Vol] 12.29 10*3/uL High 3.70-11.00 [facility] Comment on above: Order Comment: Speci men Type: BLOOD SPECIMEN Ordering Facility: [facility] Address: [facility] [place] [address] Performed By: #### S TFRCELESTINO, 73959-9 #### [facility] CLIA [id number] [address] [place] [address] OF [facility] CONSULTon 12-05-2024 CONSULT HNO ID: [id number] Author: BENSON DUARTE MD Service: Urology Author Type: Nurse Practitioner Type: Consults Filed: 12/05/2024 14:32 Note Text: -- Attestation signed by Benson Duarte MD at 12/05/2024 2:32 PM (Updated) Staff Urologist Note I have personally performed a [id number] assessment of the patient and have reviewed the PAKO note. My woo finding include: -- ASSESSMENT and PLAN: Left hydronephrosis. Chronic. Left nephrostomy displaced. Plan new left nephrostomy insert with IR Right hydronephrosis. Resolved with right nephrostomy in place. Continue current right nephrostomy. UTI. Send urine for culture from new nephrostomy insert. Continue Rocephin. Would recommend 1 week antibiotic coverage at discharge -- FOLLOW UP: Thank you for this consultation. Patient to follow up with Dr. Antonio as scheduled after discharge -- MEDICAL DECISION MAKING TIME: I spent 35-44 minutes (straightforward) on the patient's care, including review of the chart, seeing the patient, answering questions, and documenting in the medical record. SIGNATURE: Benson Duarte MD UROLOGY STAFF PHYSICIAN DATE: December 05, 2024 PATIENT NAME: Todd Delong TIME: 2:28 PM -- [facility] UROLOGY INITIAL CONSULT NOTE PATIENT: Todd Delong (74 year old) PCP: Gerardo García MD REASON FOR CONSULT: dislodged left neph tube REQUESTING PHYSICIAN: Casie Celeste -- ASSESSMENT/PLAN: Active Hospital Problems Diagnosis Date Noted Hydronephrosis of left kidney 12/05/2024 Assessment AND Plan Hydronephrosis of left kidney Chronic Bilateral neph tubes 2/2 pelvic obstruction Last exchange 11/17/[address] Clark 10F UA-: >25WBC/HPF, 6-10 RBC/HPF Culture pending- obtained from right NT ( tube). Creat-1.85 ( baseline 1.7) WBC- 12.29 CTAP reviewed IMPRESSION: 1. Severe left-sided hydroureteronephrosis. 2. Right-sided percutaneous nephrostomy tube with no hydronephrosis. 3. Colonic diverticulosis. Maintained on Ceftriaxone Recommend continuing. IR placement of left nephrostomy tube Obtain urine culture once placed. Right NT draining yellow urine. No indication of surrounding tissue infection. Left NT site- without purulent drainage, erythema, warmth. Acute pyelonephritis See above -- CHIEF COMPLAINT: Patient presents with: dislodged tube : Pt had a nephrostomy tube placed bilaterally, and the left one fell out. States that she contacted the doctor and they sent her here for a replacement tube. Pt denies any pain. HISTORY OF PRESENT ILLNESS: PMH:asthma,ovarian and cervical cancer s/p radiation, renal failure, and chronic ureteric obstruction Todd Delong is a 74 year old female who presented to the hospital for a complaint of dislodged nephrostomy tubes. PT states that she did have left flank pain yesterday. She reports she felt a slight tugging sensation when she got up to walk,however, repositioned the tubing/bag.She then went to the bathroom on her way back her grandchild noticed her left NT on the floor. Denies fever, chills, hematuria, purulent drainage and erythema to insertion site. Urology consulted for dislodged nephrostomy tubes. Last nephrostomy tube placement:-11/17/[address] Clark Evaluated at bedside. No acute distress noted. Reports left flank tenderness ( sore) Right NT draining yellow urine and ED workup : UA-: >25WBC/HPF, 6-10 RBC/HPF Culture pending- obtained from right NT tubing Creat-1.85 ( baseline 1.7) WBC- 12.29 CTAP w/o contrast revealed-IMPRESSION: 1. Severe left-sided hydroureteronephrosis. 2. Right-sided percutaneous nephrostomy tube with no hydronephrosis. 3. Colonic diverticulosis. Urology HX: Known to Dr. Antonio. Previously maintained on routine stent exchanges, however, stents alone were not adequately draining her kidneys. Last evaluated on 09/06/2024 for urosepsis 2/2 nephrostomy tube dysfunction. It was recommended for nephrostomy tubes to be upsized to minimize twisting/occlusion of the tubes. 09/29/2024-Bilateral Neph tube exchange- upsized for new 10F REVIEW OF SYSTEMS: All pertinent positives and negat (more content not included)... Normal [facility] CT ABD/PEL WO IVCONon 2024 CT ABD/PEL WO IVCON * * *Final Report* * * DATE OF EXAM: Dec 05 2024 3:27AM [facility] 0531 - CT ABD/PEL WO IVCON / PROCEDURE REASON: With a dislodged nephrostomy tube. Concern for hydronephrosis. * * * * Physician Interpretation * * * * EXAMINATION: CT ABDOMEN AND PELVIS WITHOUT IV CONTRAST CLINICAL HISTORY: Dislodged left percutaneous nephrostomy tube TECHNIQUE: Non-IV contrast imaging of the abdomen and pelvis was performed using standard technique, scanning from just above the dome of the diaphragm to the symphysis pubis. Unenhanced imaging is limited for the evaluation of some intra-abdominal and pelvic pathology. MQ: CTAPWO_3 Contrast: IV: None : ml of CT Radiation dose: Integrated Dose-length product (DLP) for this visit = 452.0 mGy*cm. CT Dose Reduction Employed: Automated exposure control(AEC) and iterative recon COMPARISON: None. RESULT: Abdomen / Pelvis: Limitations: Lack of intravenous contrast limits evaluation of the solid abdominal organs and vasculature. Liver: Unremarkable. Biliary: Cholecystectomy. Spleen: No splenomegaly. Pancreas: Unremarkable. Adrenals: No mass. Kidneys: Percutaneous right-sided nephrostomy tube. No right-sided hydronephrosis. Severe left-sided hydroureteronephrosis. GI Tract: No bowel dilation. Normal appendix. Colonic diverticulosis. Lymph Nodes: Enlarged left para-aortic lymph node measuring 1.3 cm short axis. Mesentery/peritoneum: No ascites. Retroperitoneum: No mass. Vasculature: Arterial atherosclerosis. Ectasia of the infrarenal abdominal aorta measuring up to 2.5 cm AP diameter. Pelvis: Urinary bladder is unremarkable. Hysterectomy. Bones/Soft Tissues: No acute osseous abnormality. Degenerative changes within the pubic symphysis. Sequelae of fat necrosis within the gluteal soft tissues. Lower thorax: No consolidation. Localizer images: No additional findings. IMPRESSION: 1. Severe left-sided hydroureteronephrosis. 2. Right-sided percutaneous nephrostomy tube with no hydronephrosis. 3. Colonic diverticulosis. Field Sales Executive: PSCMavis Transcribe Date/Time: Dec 05 2024 4:36A Dictated by : JOSE ANTONIO FRIAS MD This examination was interpreted and the report reviewed and electronically signed by: JOSE ANTONIO FRIAS MD on Dec 05 2024 4:57AM EST [id number] Normal [facility] Comprehensive metabolic 2000 panelon 12-05-2024 Albumin [Mass/Vol] 2.9 g/dL Low 3.2-5.0 [facility] Comment on above: Order Comment: Speci men Type: BLOOD SPECIMEN Ordering Facility: [facility] Address: [address] [place] [address] Performed By: #### 2 4323-8 #### [facility] CLIA [id number] [address] [place] [address] [place] ALP [Catalytic activity/Vol] 144 U/L High 45-117 [facility] Comment on above: Order Comment: Speci men Type: BLOOD SPECIMEN Ordering Facility: [facility] Address: [address] [place] [address] Performed By: #### 2 4323-8 #### [facility] CLIA [id number] [address] [place] [address] [place] ALT [Catalytic activity/Vol] U/L Low 13-61 [facility] Comment on above: Order Comment: Speci men Type: BLOOD SPECIMEN Ordering Facility: [facility] Address: [address] [place] [address] Result Comment: Resu lts may be falsely depressed after the administration of Sulfasalazine and/or Sulfapyridine. Performed By: #### 2 4323-8 #### [facility] CLIA [id number] [address] [place] [address] [place] Anion gap [Moles/Vol] 10 mmol/L Normal 5-16 [facility] Comment on above: Order Comment: Speci men Type: BLOOD SPECIMEN Ordering Facility: [facility] Address: [address] [place] [address] Performed By: #### 2 4323-8 #### [facility] CLIA [id number] [address] [place] [address] [place] AST [Catalytic activity/Vol] 15 U/L Normal 8-34 [facility] Comment on above: Order Comment: Speci men Type: BLOOD SPECIMEN Ordering Facility: [facility] Address: [address] [place] [address] Result Comment: Resu lts may be falsely depressed after the administration of Sulfasalazine and/or Sulfapyridine. Performed By: #### 2 4323-8 #### [facility] CLIA [id number] [address] [place] [address] [place] Bilirubin [Mass/Vol] 0.2 mg/dL Normal 0.2-1.0 [facility] Comment on above: Order Comment: Speci men Type: BLOOD SPECIMEN Ordering Facility: [facility] Address: [address] [place] [address] Performed By: #### 2 4323-8 #### [facility] CLIA [id number] [address] [place] [address] [place] Calcium [Mass/Vol] 9.1 mg/dL Normal 8.5-10.5 [facility] Comment on above: Order Comment: Speci men Type: BLOOD SPECIMEN Ordering Facility: [facility] Address: [address] [place] [address] Performed By: #### 2 4323-8 #### [facility] CLIA [id number] [address] [place] [address] [place] Chloride [Moles/Vol] 103 mmol/L Normal 98-107 [facility] Comment on above: Order Comment: Speci men Type: BLOOD SPECIMEN Ordering Facility: [facility] Address: [address] [place] [address] Performed By: #### 2 4323-8 #### [facility] CLIA [id number] [address] [place], [place] [id number] [place] CO2 [Moles/Vol] 27 mmol/L Normal 21-32 [facility] Comment on above: Order Comment: Speci men Type: BLOOD SPECIMEN Ordering Facility: [facility] Address: [address] [place] [address] Performed By: #### 2 4323-8 #### [facility] CLIA [id number] [address] [place] [address] [place] Creatinine [Mass/Vol] 1.85 mg/dL High 0.51-0.95 [facility] Comment on above: Order Comment: Speci men Type: BLOOD SPECIMEN Ordering Facility: [facility] Address: [address] [place] [address] Result Comment: Mayda ents receiving either N-Acetylcysteine (NAC) or Metamizole prior to venipuncture, may have falsely depressed results. Performed By: #### 2 4323-8 #### [facility] CLIA [id number] [address] [place] [address] STATES OF [facility] Creatinine and Glomerular filtration rate.predicted panel (S/P/Bld) 29 mL/min/1.73m??? Low >=60 [facility] Comment on above: Order Comment: Randalli rafal Type: BLOOD SPECIMEN Ordering Facility: [facility] Address: [address] [place] [address] Result Comment: Judith mated Glomerular Filtration Rate [...] actual GFR. Performed By: #### 2 4323-8 #### [facility] CLIA [id number] [address] [place] [address] [place] Glucose [Mass/Vol] 129 mg/dL High 70-100 [facility] Comment on above: Order Comment: Randalli rafal Type: BLOOD SPECIMEN Ordering Facility: [facility] Address: [address] [place] [address] Result Comment: The [place] [employer] (ADA) provides guidance for cutoff values for fasting glucose and random glucose. The ADA defines fasting as no caloric intake for at least 8 hours. Fasting plasma glucose results between 100 to 125 mg/dL indicate increased risk for diabetes (prediabetes). Fasting plasma glucose results greater than or equal to 126 mg/dL meet the criteria for diagnosis of diabetes. In the absence of unequivocal hyperglycemia, results should be confirmed by repeat testing. In a patient with classic symptoms of hyperglycemia or hyperglycemic crisis, random plasma glucose results greater than or equal to 200 mg/dL meet the criteria for diagnosis of diabetes. Reference: Standards of Medical Care in Diabetes 2016, [place] [employer]. Diabetes Care. 2016.39(Suppl 1). Results may be falsely elevated after the administration of Sulfapyridine. Results may be falsely depressed after the administration of Sulfasalazine. Performed By: #### 2 4323-8 #### [facility] CLIA [id number] [address] [place] [address] [place] Potassium [Moles/Vol] 4.2 mmol/L Normal 3.5-5.1 [facility] Comment on above: Order Comment: Abdon lyles Type: BLOOD SPECIMEN Ordering Facility: [facility] Address: [address] [place] [address] Performed By: #### 2 4323-8 #### [facility] CLIA [id number] [address] [place] [address] [place] Protein [Mass/Vol] 7.8 g/dL Normal 6.0-8.5 [facility] Comment on above: Order Comment: Abdon lyles Type: BLOOD SPECIMEN Ordering Facility: [facility] Address: [address] [id number] Performed By: #### 2 4323-8 #### [facility] CLIA [id number] [address] [place] [address] [place] Sodium [Moles/Vol] 140 mmol/L Normal 136-145 [facility] Comment on above: Order Comment: Abdon lyles Type: BLOOD SPECIMEN Ordering Facility: [facility] Address: [address] [place] [address] Performed By: #### 2 4323-8 #### [facility] CLIA [id number] [address] [place], [place] [id number] [place] Urea nitrogen [Mass/Vol] 22 mg/dL Normal 7- [facility] Comment on above: Order Comment: Speci men Type: BLOOD SPECIMEN Ordering Facility: [facility] Address: [address] [id number] Performed By: #### 2 4323-8 #### [facility] CLIA [id number] [address] [place], [place] [id number] [facility] ED PROV NOTEon 12-05-2024 ED PROV NOTE HNO ID: [id number] Author: JUNITO MÁRQUEZ MD Service: Emergency Medicine Author Type: Physician Type: ED Provider Notes Filed: 12/05/2024 07:24 Note Text: ED Provider Note Patient Name: Todd Delong : 1950 SERVICE DATE: 12/04/24 History Patient presents with: dislodged tube : Pt had a nephrostomy tube placed bilaterally, and the left one fell out. States that she contacted the doctor and they sent her here for a replacement tube. Pt denies any pain. 74-year-old with a past medical history significant for asthma, BPH, ovarian and cervical cancer s/p radiation, renal failure, and chronic ureteric obstruction status post chronic nephrostomy tube placement who presents the emergency department for dislodged tube on the left side. Patient states he recently had tubes replaced 2 weeks ago. She states she was doing okay with no complaints. She states she went to the bathroom and when she got back to bed her grandson told that one of her tubes was on the floor. She states as a result she called her payroll human resources assistant office and was instructed to come to the emergency department for evaluation. She denies any fevers or chills, worsening discharge from the nephrostomy tubes, or pain. She denies any other trauma. 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 FAXED for copy - Renal failure NO DIALYSIS FOR [address] MILLER MANAGES-- WENT FOR 2 YEARS REMAINS TO HAVE FISTULA IN LEFT UPPER ARM - Thyroid disease PAST SURGICAL HISTORY Procedure Laterality Date - CRNL RELAXING INC CORRJ INDUCED ASTIGMATISM Right 08/11/2015 LRI (Corneal Relaxing Incision) - CRNL RELAXING INC CORRJ INDUCED ASTIGMATISM Left 09/09/2015 LRI (Corneal Relaxing Incision) - CYSTOSCOPY with ureteral stents - FISTULA Left LEFT UPPER ARM NOT BEING USED DR MILLER IS RENAL MD - LOOP RECORDER SHUT OFF AT THIS TIME/ used to see Dr. 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, no longer follows with fitter/welder - LX REMOVAL RENAL MASS - NEPHROSTOMY TUBE [place] 2022 - PAST SURGICAL HISTORY OF gallbladder - PAST SURGICAL HISTORY OF 11/19/1983 radiation - XCAPSL CTRC RMVL INSJ IO LENS PROSTH W/O ECP Right 08/11/2015 Cataract Extraction with Femtosecond Laser (LenSx) - XCAPSL CTRC RMVL INSJ IO LENS PROSTH W/O ECP Left 09/09/2015 Cataract Extraction with PC IOL FAMILY HISTORY Problem Relation Age of Onset - Heart Father Social History Tobacco Use - Smoking status: Former Current packs/day: 1.00 Average packs/day: 1 pack/day for 17.0 years (17.0 ttl pk-yrs) Types: Cigarettes Start date: 2007 Quit date: 1967 Passive exposure: Never - Smokeless tobacco: Never Vaping Use - Vaping status: Never Used Substance and Sexual Activity - Alcohol use: Never - Drug use: Not Currently - Sexual activity: Not on file ALLERGIES Allergen Reactions - Methylprednisolone Other: See Comments - Bactrim [Sulfametho* Shortness of Breath - Influenza Virus Vac* Unknown - Pravastatin Intolerance - Prednisone Unknown - Lywihov-Syf-Nle Red* Anaphylaxis Review of Systems Constitutional: Negative for chills, fatigue and fever. HENT: Negative for ear discharge, ear pain, mouth sores, rhinorrhea, sinus pressure, sneezing, sore throat and tinnitus. Eyes: Negative for photophobia, discharge, itching and visual disturbance. Respiratory: Negative for cough, shortness of breath, wheezing and stridor. Cardiovascular: Negative for chest pain, palpitations and leg swelling. Gastrointestinal: Negative for abdominal distention, blood in stool, constipation, diarrhea, nausea and vomiting. Endocrine: Negative for cold intolerance and heat intolerance. Genitourinary: Negative for dysuria, flank pain, frequency and hematuria. Musculoskeletal: Negative for back pain, gait problem and joint swelling. Skin: Negative for color change, pallor and rash. Neurological: Negative for dizziness, syncope, weakness, light-headedness and headaches. Psychiatric/Behavioral: Negative for confusion, hallucinations, sleep disturbance and suicidal ideas. Physical Exam Vitals [12/04/24 2257] BP Pulse Temp Temp src Resp SpO2 Weight Height 163/75 (!) 113 -- -- 16 (!) 94 % 74.8 kg (165 lb) 1.727 m (5' 8) Physical Exam Vitals and nursing note reviewed. Constitutional: General: She is not in acute distress. Appearance: She is not ill-appearing. HENT: Head: Normocephalic and atraumatic. Right Ear: External ear normal. Left Ear: External ear normal. Nose: No congestion or rhinorrhea. Mouth/ (more content not included)... Normal [facility] HISTORY PHYSICALon HISTORY PHYSICAL HNO ID: [id number] Author: ALANIS ADAME MD Service: Hospital Medicine Author Type: Physician Type: H&P Filed: 12/05/2024 11:26 Note Text: HISTORY AND PHYSICAL EXAMINATION SERVICE DATE: 12/05/2024 SERVICE TIME: 8:42 AM PRIMARY CARE PHYSICIAN: Gerardo García MD Subjective CHIEF COMPLAINT: Dislodged nephrostomy tube HPI: This is a 74 year old female with PMHx of asthma, hypertension, hypothyroidism, CKD stage III, chronic hydroureter status post bilateral nephrostomy tube placement. Presenting with dislodged L PNT. Per report, she noticed slightly decreased output from left nephrostomy tube. Her grandson noticed that it was on the floor yesterday. Right nephrostomy tube functioning adequately. She very rarely makes urine in her bladder. Endorses some mild pain/discomfort in her bladder which started after tube was dislodged. She presented to the ER She was hemodynamically stable in the ER with slight tachycardia. Blood work notable for creatinine 1.85, mildly elevated alk phos 144. WBC 12.2. Negative lactic acid. UA showing 3+ leukocytes, greater than 25 WBC, many bacteria. Urine culture was obtained. CT abdomen pelvis showing severe left-sided hydroureteronephrosis. She was started on ceftriaxone. Upon evaluation, patient appears comfortable. Denies constitutional symptoms. Denies tobacco, alcohol, drug use. 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 FAXED for copy Renal failure [...] Dr. 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, no longer follows with fitter/welder LX REMOVAL RENAL MASS NEPHROSTOMY TUBE ([place]) 2022 PAST SURGICAL HISTORY OF gallbladder PAST SURGICAL HISTORY OF 11/19/1983 radiation XCAPSL CTRC RMVL INSJ IO LENS PROSTH W/O ECP Right 08/11/2015 Cataract Extraction with Femtosecond Laser (LenSx) XCAPSL CTRC RMVL INSJ IO LENS PROSTH W/O ECP Left 09/09/2015 Cataract Extraction with PC IOL FAMILY HISTORY Problem Relation Age of Onset Heart Father Social History Tobacco Use Smoking status: Former Current packs/day: 1.00 Average packs/day: 1 pack/day for 17.0 years (17.0 ttl pk-yrs) Types: Cigarettes Start date: 2007 Quit date: 1967 Passive exposure: Never Smokeless tobacco: Never Vaping Use Vaping status: Never Used Substance Use Topics Alcohol use: Never Drug use: Not Currently (Not in a hospital admission) ALLERGIES Allergen Reactions Methylprednisolone Other: See Comments Bactrim [Sulfametho* Shortness of Breath Influenza Virus Vac* Unknown Pravastatin Intolerance Prednisone Unknown Lpvusqv-Lsx-Uqu Red* Anaphylaxis COMPLETE REVIEW OF SYSTEMS: As per HPI Objective PHYSICAL EXAM: Physical Exam Performed: Gen: alert and oriented, NAD, vitals reviewed Head/Neck: NCAT; trachea appears midline, no gross LAD ENT: EOMI grossly, anicteric sclerae; MMM Resp: normal respiratory effort, symmetric chest rise CV: RRR; extremities well perfused GI: non-distended; no TTP Ext: no clubbing, cyanosis or edema Skin: no new rash or lesions on limited visual exam Neuro/MSK: moves all extremities Psych: normal mood; appropriate affect BP 117/57 Pulse 83 Resp 16 Ht 5' 8 (1.73m) Wt 165 lb (74.8kg) SpO2 93% BMI 25.09 kg/(m2). O2 Therapy: Room Air DATA: Diagnostic tests reviewed for today's visit: I personally reviewed the most recent labs and imaging results from the ER. I also reviewed outpatient chart including recent admissions and office visits if available. Please see my personal interpretation below in assessment/plan. Assessment/Plan Active Hospital Problems Left hydroureteronephrosis -Admit to the hospital for the above problem -Secondary to dislodged left PNT -Consult urology -Consult IR to replace left PNT Acute UTI -Continue ceftriaxone 2 g IV daily -Continue maintenance IV fluids -Follow-up urine culture Chronic stable conditions asthma, hypertension, hypothyroidism, CKD stage III, chronic hydroureter status post bilateral nephrostomy tube placement -Continue home meds as able Medical Decision Making High complexity medic (more content not included)... Normal [facility] IR NEPHROSTOGRAMon IR NEPHROSTOGRAM * * *Final Report* * * DATE OF EXAM: Dec 05 2024 1:56PM [facility] 0778 - IR NEPHROSTOGRAM / PROCEDURE REASON: hydronephrosis * * * * Physician Interpretation * * * * Left nephrostomy tube replacement under fluoroscopy, 12/05/2024. Reason for procedure: Inadvertently dislodged left nephrostomy tube. Fluoroscopy time: 1.3 minutes. Contrast: Approximately 10 mL of Visipaque to 70. Total air kerma: 14.4 mGy Dose area product: 346.3 mcGy-m2 Complications: None. Anesthesia: The procedure was local anesthesia. No sedation was administered. Procedure details and findings: Informed consent was obtained from the patient. The patient was evaluated for the safety and appropriateness of conscious sedation and the Moderate Sedation Record was completed. The procedure was performed local anesthetic. The patient was placed prone on the procedure table. The left flank was prepped and draped in usual sterile fashion. Under fluoroscopic guidance, the tract from the previously placed left nephrostomy tube was successfully cannulated using a short Berenstein catheter and 0.035 inch angled tip Glidewire. Glidewire and sheath were advanced into the left renal collecting system. A nephrostogram confirmed moderate hydronephrosis with no filling defects noted. The Glidewire was exchanged through the catheter for a 0.035 inch Amplatz guidewire. A new 10 Burkinan left nephrostomy tube was placed over the Amplatz guidewire with tip coiled in the collecting system. Urine specimen was aspirated and submitted for cultures as requested by the ordering service. The external portion of the drain was secured with nonabsorbable suture and connected to a bag for gravity drainage. A sterile dressing was applied. IMPRESSION: Satisfactory replacement of dislodged left nephrostomy using existing tract. Field Sales Executive: [facility] Transcribe Date/Time: Dec 05 2024 2:01P Dictated by : JONA CLARK MD This examination was interpreted and the report reviewed and electronically signed by: JONA CLARK MD on Dec 05 2024 2:06PM EST [id number] [facility] IR NEPHROSTOMY TUBE PLACEon 12-05-[address] * * *Final Report* * * DATE OF EXAM: Dec 05 2024 1:56PM [facility] 0779 - IR NEPHROSTOMY TUBE PLACE / PROCEDURE REASON: hydronephrosis * * * * Physician Interpretation * * * * Left nephrostomy tube replacement under fluoroscopy, 12/05/2024. Reason for procedure: Inadvertently dislodged left nephrostomy tube. Fluoroscopy time: 1.3 minutes. Contrast: Approximately 10 mL of Visipaque to 70. Total air kerma: 14.4 mGy Dose area product: 346.3 mcGy-m2 Complications: None. Anesthesia: The procedure was local anesthesia. No sedation was administered. Procedure details and findings: Informed consent was obtained from the patient. The patient was evaluated for the safety and appropriateness of conscious sedation and the Moderate Sedation Record was completed. The procedure was performed local anesthetic. The patient was placed prone on the procedure table. The left flank was prepped and draped in usual sterile fashion. Under fluoroscopic guidance, the tract from the previously placed left nephrostomy tube was successfully cannulated using a short Berenstein catheter and 0.035 inch angled tip Glidewire. Glidewire and sheath were advanced into the left renal collecting system. A nephrostogram confirmed moderate hydronephrosis with no filling defects noted. The Glidewire was exchanged through the catheter for a 0.035 inch Amplatz guidewire. A new 10 Burkinan left nephrostomy tube was placed over the Amplatz guidewire with tip coiled in the collecting system. Urine specimen was aspirated and submitted for cultures as requested by the ordering service. The external portion of the drain was secured with nonabsorbable suture and connected to a bag for gravity drainage. A sterile dressing was applied. IMPRESSION: Satisfactory replacement of dislodged left nephrostomy using existing tract. Field Sales Executive: LADARIUS Transcribe Date/Time: Dec 05 2024 2:01P Dictated by : JONA CLARK MD This examination was interpreted and the report reviewed and electronically signed by: JONA CLARK MD on Dec 05 2024 2:06PM EST [id number] [facility] PATHOLOGIST INTERPRETATION C BC/DIFFon 12-05-2024 Helpdesk Manager review Pollo (Unsp spec) [Interp] Reviewed by Veronica Arredondo MD [facility] Comment on above: Order Comment: Speci men Type: BLOOD SPECIMEN Ordering Facility: [facility] Address: [address] [place] [address] Performed By: #### S TFREV, 43822-5 #### [facility] CLIA [id number] [address] [place], [place] [address] [place] STAFF REVIEW, CBCDIF [facility] Comment on above: Order Comment: Speci men Type: BLOOD SPECIMEN Ordering Facility: [facility] Address: [address] [place] [address] Result Comment: Lymp hocytic leukocytosis with reactive/atypical forms; neutrophils show cytoplasmic vacuolization and Dohle body formation. Platelets are increased in number (423 k/uL) but normal and morphology. Red blood cells appear normal in number and morphology. Review of the patient's prior CBCs shows lymphocytosis dating back to 11/23/2023.. Clinical correlation is required with further evaluation, possibly including flow cytometric evaluation peripheral blood, as clinically indicated. Performed By: #### S TFREV, 70113-9 #### [facility] CLIA [id number] [facility] [address] [place] [id number] [place] PT panel Coag (PPP)on 2024 INR Coag (PPP) [Relative time] 1.0 {INR} Normal 0.9-1.3 [facility] Comment on above: Order Comment: Abdon lyles Type: BLOOD SPECIMENOrdering Facility: [facility] Address: [address] [place] [address] Result Comment: Tawanna min K Antagonist (VKA) Therapeutic Range: INR 2 to 3 (Target INR of 2.5) Note: For patients treated with VKA drugs, such as warfarin, the [place] [employer] 2012 Guideline recommends a therapeutic INR range of 2 to 3 (target INR of 2.5). This recommendation includes high-risk patients with antiphospholipid syndrome with previous arterial or venous thromboembolism, current-generation mechanical or bioprosthetic aortic heart valve replacement. Note: Patients with mechanical aortic valve replacement and additional risk factors for thromboembolic events (atrial fibrillation, previous thromboembolism, LV dysfunction, hypercoagulable conditions) or an older generation mechanical AVR (i.e., ball in-Cage) or any mechanical MVR should have a INR therapeutic range of 2.5 to 3.5 (target INR of 3). Suleiman BURCH, et al. Chest 2012, 141:7S-47S Ronald RA, et al. JACC 2017, 70: 252-289 Performed By: #### 1 4979-9, 49822-5 ####[facility] [id number] [place] [id number] [place] PT Coag (PPP) [Time] 10.9 s Normal 9.7-13.0 [facility] Comment on above: Order Comment: Speci men Type: BLOOD SPECIMENOrdering Facility: [facility] Address: [address] [place] [address] Performed By: #### 1 4979-9, 44171-4 ####[facility]ORY[facility]IA [id number] [address] SEPSIS LACTATEon 12-05-2024 Lactate [Moles/Vol] 0.7 mmol/L Normal 0.4-2.0 [facility] Comment on above: Order Comment: Speci men Type: BLOOD SPECIMENOrdering Facility: [facility] Address: [address] [place] [address] Performed By: #### S LACT ####[facility]ORYCLIA [id number] [address] Urinalysis complete panel (U )on 12-05-2024 Bacteria LM.HPF (Urine sed) [#/Area] Many Abnormal None Seen [facility] Comment on above: Order Comment: Speci men Type: URINE SPECIMEN Ordering Facility: [facility] Address: [address] [place] [address] Performed By: #### 6 30-4, 92793-0 #### [facility] CLIA [id number] [address] [place] [address] [place] Bilirubin Ql (U) Negative Normal Negative [facility] Comment on above: Order Comment: Speci men Type: URINE SPECIMEN Ordering Facility: [facility] Address: [address] [place] [address] Performed By: #### 6 30-4, 22814-9 #### [facility] CLIA [id number] [address] [place] [address] [place] Clarity (Unsp spec) Slightly Cloudy Abnormal Clear [facility] Comment on above: Order Comment: Speci men Type: URINE SPECIMEN Ordering Facility: [facility] Address: [address] [place] [address] Performed By: #### 6 30-4, 17470-2 #### [facility] CLIA [id number] [address] [place] Color (U) Yellow Normal Yellow [facility] Comment on above: Order Comment: Speci men Type: URINE SPECIMEN Ordering Facility: [facility] Address: [address] [place] [address] Performed By: #### 6 30-4, 73173-2 #### [facility] CLIA [id number] [address] [place] [address] [place] Epithelial cells LM.HPF (Urine sed) [#/Area] None Seen Normal [facility] Comment on above: Order Comment: Speci men Type: URINE SPECIMEN Ordering Facility: [facility] Address: [address] [place] [address] Result Comment: None Seen Performed By: #### 6 30-4, 40736-3 #### [facility] CLIA [id number] [address] [place] [address] [place] Glucose Test strip (U) [Mass/Vol] Negative Normal Negative [facility] Comment on above: Order Comment: Speci men Type: URINE SPECIMEN Ordering Facility: [facility] Address: [address] [place] [address] Performed By: #### 6 30-4, 93507-5 #### [facility] CLIA [id number] [address] [place] [address] [place] Hemoglobin Ql (U) 2+ Abnormal Negative [facility] Comment on above: Order Comment: Speci men Type: URINE SPECIMEN Ordering Facility: [facility] Address: [address] [place] [address] Performed By: #### 6 30-4, 41826-8 #### [facility] CLIA [id number] [address] [place] [address] [place] Ketones Ql (U) Negative Normal Negative [facility] Comment on above: Order Comment: Speci men Type: URINE SPECIMEN Ordering Facility: [facility] Address: [address] [place] [address] Performed By: #### 6 30-4, 15526-6 #### [facility] CLIA [id number] [address] [place] [address] Leukocyte esterase Test strip Ql (U) 3+ Abnormal Negative [facility] Comment on above: Order Comment: Speci men Type: URINE SPECIMEN Ordering Facility: [facility] Address: [address] [place] [address] Performed By: #### 6 30-4, 78116-7 #### [facility] CLIA [id number] [address] [place] [address] [place] Nitrite Ql (U) Negative Normal Negative [facility] Comment on above: Order Comment: Speci men Type: URINE SPECIMEN Ordering Facility: [facility] Address: [address] [place] [address] Performed By: #### 6 30-4, 58472-1 #### [facility] CLIA [id number] [address] [place] [address] [place] pH (U) 6.5 [pH] Normal 5.0-8.0 [facility] Comment on above: Order Comment: Speci men Type: URINE SPECIMEN Ordering Facility: [facility] Address: [address] [place] [address] Performed By: #### 6 30-4, 93821-3 #### [facility] CLIA [id number] [address] [place] [address] [place] Protein (U) [Mass/Vol] 2+ Abnormal Negative [facility] Comment on above: Order Comment: Speci men Type: URINE SPECIMEN Ordering Facility: [facility] Address: [address] [place] [address] Performed By: #### 6 30-4, 06119-6 #### [facility] CLIA [id number] [address] [place] [address] [place] RBC LM.HPF (Urine sed) [#/Area] 6-10 /HPF Abnormal 0-3 /HPF [facility] Comment on above: Order Comment: Speci men Type: URINE SPECIMEN Ordering Facility: [facility] Address: [address] [place] [address] Performed By: #### 6 30-4, 94458-1 #### [facility] CLIA [id number] [address] [place] [address] Specific gravity (U) [Rel density] 1.010 Normal 1.005-1.03 0 [facility] Comment on above: Order Comment: Speci men Type: URINE SPECIMEN Ordering Facility: [facility] Address: [address] [place] [address] Performed By: #### 6 30-4, 33656-4 #### [facility] CLIA [id number] [address] [place] [address] Urobilinogen Ql (U) Negative Normal Negative [facility] Comment on above: Order Comment: Speci men Type: URINE SPECIMEN Ordering Facility: [facility] Address: [address] [place] [address] Performed By: #### 6 30-4, 49066-2 #### [facility] CLIA [id number] [address] [place] [address] WBC LM.HPF (Urine sed) [#/Area] /[HPF] Abnormal 0-5 /HPF [facility] Comment on above: Order Comment: Speci men Type: URINE SPECIMEN Ordering Facility: [facility] Address: [address] [place] [address] Performed By: #### 6 30-4, 12873-8 #### [facility] CLIA [id number] [address] [place] [address] [place] aPTT PPPon 12-05-2024 aPTT Coag (PPP) [Time] 27.8 s Normal 23.0-32.4 [facility] Comment on above: Order Comment: Speci men Type: BLOOD SPECIMENOrdering Facility: [facility] Address: [address] [place] [address] Performed By: #### 1 4979-9, 26404-4 ####[facility] [id number] [address] OF [facility] ED Triage Noteon 12-04-2024 ED Triage Note HNO ID: [id number] Author: SUNNI CORREA PA-C Service: ? Author Type: Physician Application Support Type: ED Triage Notes Filed: 12/04/2024 22:57 Note Text: ED TRIAGE PROVIDER NOTE Patient Name: Todd Delong Service Date: 12/04/24 BRIEF HPI: This is a 74 year old female who presents to the ED with: Dislodged left nephrostomy tube. States she called her urologist office instructed to come to the emergency department to be admitted for replacement. Has a stent placed for hydronephrosis. No pain associated with this. BRIEF EXAM: NAD Awake and Alert Non labored breathing R sided nephrostomy tube in place, L tube is completely out. No CVA tenderness INITIAL WORKUP AND DECISION MAKING: Orders Placed This Encounter CBC W/ DIFF CMP SIGNATURE: Sunni Correa PA-C [facility] BRIEF OP NOTon 11-17-2024 BRIEF OP NOT HNO ID: [id number] Author: JONA CLARK MD Service: Interventional Radiology Author Type: Physician Type: Brief Op Note Filed: 11/17/2024 09:01 Note Text: BRIEF OPERATIVE / PROCEDURE NOTE LOG ID: [id number] SURGERY/PROCEDURE DATE: 11/17/2024 INCISION/PROCEDURE START TIME: 8:45 AM INCISION CLOSE/PROCEDURE END TIME: 8:54 AM SURGEON(S)/PROCEDURALIST(S ) AND MAMMALOGIST(S): Surgeons and Role: * Jona Clark MD - Primary No Additional Staff SURGERY/PROCEDURE(S): Bilateral nephrostomy tube exchanges. ANESTHESIA: Local FINDINGS: Routine exchange of bilateral 10 [place] nephrostomy tubes. ESTIMATED BLOOD LOSS: Scant SPECIMENS: None COMPLICATIONS: None PRE-OP/PRE-PROCEDURE DIAGNOSIS: Chronic bilateral indwelling nephrostomy tubes, for routine exchange. POST-OP/POST-PROCEDURE DIAGNOSIS: Same as Preop SIGNATURE: Jona Clark MD PATIENT NAME: Todd Delong DATE: November 17, 2024 TIME: 8:59 AM [facility] IR EXCHANGE NEPH TUBE BILATo n 11-17-2024 IR EXCHANGE NEPH TUBE BILAT * * *Final Report* * * DATE OF EXAM: Nov 17 2024 9:02AM [facility] [id number] - IR EXCHANGE NEPH TUBE BILAT / PROCEDURE REASON: * * * * Physician Interpretation * * * * PROCEDURE: GENITOURINARY CATHETER EXCHANGE Procedural Personnel Attending physician(s): Jona Clark M.D. Fellow physician(s): None Resident physician(s): None Advanced practice provider(s): None Medical Student(s): None Pre-procedure diagnosis: Ureteral obstruction. Post-procedure diagnosis: Same Indication: Routine scheduled exchange Additional clinical history: None PROCEDURE SUMMARY - Target organ: Bilateral [place] kidneys - Antegrade nephrostogram(s) via the existing [...] and procedure-specific equipment needs. Start of procedure: 829 End of procedure: 844 Patient position: Prone Preparation: The site was prepared and draped using all elements of maximal sterile barrier technique including sterile gloves, sterile gown, cap, mask, large sterile sheet, hand hygiene and cutaneous antisepsis. Antibiotics: None Antibiotic infusion start time: N/A Prophylactic antibiotic administered: None Additional med: None Additional med: None Contrast Contrast agent: VISPAQUE 270 Contrast volume (mL): 5 Image Guidance: Fluoroscopic guidance. Radiation Dose FLUOROSCOPIC RADIATION SUMMARY: Plane A, Air Kerma: 6.0 mGy Dose Area Product (DAP): 206.5 mcGy-m2 Fluoro Time: 0:48 min:sec Radiation dose exceed [...] confirmed with contrast injection. Pre-existing genitourinary catheter: 10 F [employer] nephrostomy Genitourinary catheter(s) placed: 10 F [employer] nephrostomy Findings: No hydronephrosis or filling defects. External catheter securement: Non-absorbable suture Left genitourinary catheter exchange Local anesthesia was administered. Initial nephrostogram was performed. A wire was placed through the existing tube and it was removed. The new tube was advanced over the wire and position was confirmed with contrast injection. Pre-existing genitourinary catheter: 10 F [employer] nephrostomy Genitourinary catheter(s) placed: 10 F [employer] nephrostomy Findings: No hydronephrosis or filling defect. External catheter securement: Non-absorbable suture Additional genitourinary [...] Conclusion The patient was comfortable and was discharged home in stable condition. The procedure was performed by the: attending radiologist, without an inventory assistant. The attending radiologist performed the following procedural activities: Entire procedure IMPRESSION: UNEVENTFUL EXCHANGE OF GENITOURINARY CATHETER(S) PLAN: (more content not included)... Normal [facility] NURSING PROGon 11-17-2024 NURSING PROG HNO ID: [id number] Author: MAYRA FERGUSON, ANISH Service: Nursing Author Type: Registered Nurse Type: Nursing Progress Note Filed: 11/17/2024 08:57 Note Text: Procedure complete. No specimens sent. Jer [employer] dressings w/opsite covering. Pt tolerated well. [facility] 11-07-2024 CNPN Telephone ([id number]) -- TODD DELONG ([id number]) 1950 F Date Time Provider Department 11/07/24 JIN ANTONIO [id number] During your visit today, we recorded the following information about you: Kiya Johnson OCCA 11/07/2024 11:24 AM Signed Pt called stating that she has two nephrostomy tubes. From pinning the bags to her shirt, the bags are now leaking leaving her clothes wet. She would like to know how she can get new bags. She has already called [facility] and they do not carry them. ELAINE Vizcarra Erin, OCCMinda 11/07/2024 11:48 AM Signed Attempted to contact interventional radiology, no answer and was unable to leave a VM. Will try again later. ELAINE Vizcarra Erin, OCCA 11/07/2024 2:10 PM Signed I contacted IR and they do not supply replacement nephrostomy bags. I informed pt that she could contact her insurance and ask if they would cover these supplies. Todd asked if she could order nephrostomy supplies on [employer]. While on the phone with the pt, I searched [employer] website and informed her that she could order supplies at that site. ELAINE Vizcarra Allergies As of Date: 11/07/2024 Noted Allergy Reaction METHYLPREDNISOLONE 08/01/2019 14 - Other: See Comments BACTRIM (SULFAMETHOXAZOLE) 01/04/2015 12 - Shortness of Breath INFLUENZA VIRUS VACCINES 01/04/2015 16 - Unknown PRAVASTATIN 01/04/2015 5 - Intolerance PREDNISONE 01/04/2015 16 - Unknown IYUFENM-UBM-RPY REDUCTASE INHIBIT*12/07/2021 10 - Anaphylaxis Date Reviewed: 09/29/2024 Reviewed by: Mayra Ferguson RN - Fully Assessed Reason for Visit: Patient Question [4397] Prescriptions as of 11/07/2024 - sodium chloride 0.9 %, flush, (BD POSIFLUSH) syringe 10 mL once daily. - Urinary Bag (BARD URINARY DRAINAGE SYSTEM) misc 2 Bags as needed. - levothyroxine (SYNTHROID) 25 mcg tablet Take 1 tablet by mouth daily before breakfast. - IPRATROPIUM BROMIDE NASAL Use 1 [place] in the nose every morning. - pantoprazole DR (PROTONIX) 40 mg tablet Take 40 mg by mouth every morning. - potassium chloride ER (KLOR-CON) 20 mEq tablet Take 20 mEq by mouth every morning. - amLODIPine (NORVASC) 2.5 mg tablet Take 2.5 mg by mouth every morning. - ALBUTEROL SULFATE (VENTOLIN INHALATION) Inhale 1 Montegut as instructed every 4 hours as needed (wheezing/shortness of breath). Problem List As Of Date 11/07/2024 Noted Resolved Hypermature senile cataract - Both [...] Recurrent UTI [N39.0] 10/10/2023 Hydronephrosis [N13.30] 11/17/2023 Preop testing [Z01.818] 02/06/2024 UTI (urinary tract infection) [N39.0] 06/18/2024 06/19/2024 UTI (urinary tract infection) [N39.0] 06/19/2024 Sepsis secondary to UTI (HCC) (HCC) [A41.9, N3*09/06/2024 Encounter Status:Closed by KIYA JOHNSON on 11/07/24 [facility] Influenza virus A and B and SARS-CoV-2 (COVID-19) and Respiratory syncytial virus RNAOrdered By: Gerardo García on 11-03-2024 SARS-CoV-2 (COVID-19) RNA BOBBI+probe Ql (Unsp spec) [facility] 50-LD-Qrczkco DOrdered By: Zahra García on 10-27-2024 Vitamin D 25-Hydroxy 29.3 ng/mL [facility] Comment on above: Vitamin D 25(OH) Sta tus Range Deficiency <20 ng/mL (50nmol/L) Insufficiency 20 - 30 ng/mL (50 - 75 nmol/L) Sufficiency 30 - 100 ng/mL (75 - 250 nmol/L) Toxicity >100 ng/mL (>250 nmol/L) Absolute neutrophil countOrd ered By: Gerardo García on 10-27-2024 Neutrophils (Bld) [#/Vol] 5.5 10*3/uL 2.0-7.7 [facility] Albumin to globulin ratioOrd ered By: Gerardo García on 10-27-2024 Albumin/Globulin [Mass ratio] 0.5 {ratio} Low 0.9-2.4 [facility] Basophil percentageOrdered B y: Gerardo García on 10-27-2024 Basophils/100 WBC (Bld) 0.5 % 0-1 [facility] Bilirubin, totalOrdered By: Gerardo García on 10-27-2024 Bilirubin [Mass/Vol] 0.50 mg/dL 0.20-1.00 [facility] Comment on above: For patients on eltr ombopag therapy, use of Dimension [place] TBIL is not recommended. Blood urea nitrogen (BUN)/cr eatinine ratioOrdered By: Gerardo García on 10-27-2024 Urea nitrogen/Creatinine [Mass ratio] 10.0 mg/mg 10-20 [facility] Carbon dioxide measurementOr dered By: Gerardo García 10-27-2024 CO2 [Moles/Vol] 22.0 mmol/L 21.0-32.0 [facility] Chloride measurementOrdered By: Gerardo García 10-27-2024 Chloride [Moles/Vol] 103 mmol/L 98-107 [facility] Eosinophil percentageOrdered By: Gerardo García 10-27-2024 Eosinophils/100 WBC (Bld) 0.9 % 0-5 [facility] Erythrocyte distribution wid th ratioOrdered By: Gerardo García 10-27-2024 Erythrocyte distribution width (RBC) [Ratio] 14.6 % 11.6-14.6 [facility] Erythrocyte distribution wid th standard deviationOrdered By: Gerardo García 10-27-2024 Erythrocyte distribution width (RBC) [Entitic vol] 48.8 fL High 35.1-43.9 [facility] Estimated glomerular filtrat ion rate (GFR) AmericanOrdered By: Gerardo García 10-27-2024 Estimated GFR (MDRD) Amer 31 mL/min Low >60 [facility] Comment on above: GFR Calc Glomerular filtration rate ( GFR) estimationOrdered By: Gerardo García 10-27-2024 Estimated GFR (MDRD) Non-Af Amer 26 mL/min Low >60 [facility] Comment on above: Non- GFR Calc Glucose measurementOrdered B y: Gerardo García on 10-27-2024 Glucose [Mass/Vol] 97 mg/dL 74-106 [facility] Hematocrit Auto (Bld) [Volum e fraction]Ordered By: Gerardo García 10-27-2024 Hematocrit (Bld) [Volume fraction] 41.2 % 37-47 [facility] Hemoglobin measurementOrdere d By: Gerardo García 10-27-2024 Hemoglobin (Bld) [Mass/Vol] 13.2 g/dL 12.0-15.0 [facility] High density lipoprotein (HD L) measurementOrdered By: Gerardo García 10-27-2024 Cholesterol in HDL [Mass/Vol] 47 mg/dL >40 [facility] Comment on above: The drugs N-Acetylcy steine and Metamizole may falsely depress this assay. Reference Range HDL <40 mg/dL Low HDL Cholesterol HDL >or= 60 mg/dL High HDL Cholesterol Immature granulocytes/100 WB C Auto (Bld)Ordered By: Gerardo García on 10-27-2024 Immature granulocytes/100 WBC (Bld) 0.500 % 0.0-0.9 [facility] Comment on above: IG% - Immature Granu locytes (promyelocytes, myelocytes and metamyelocytes) > 1% indicates that a LEFT SHIFT is Present. Influenza virus A and B and SARS-CoV-2 (COVID-19) and Respiratory syncytial virus RNAOrdered By: Gerardo García on 10-27-2024 SARS-CoV-2 (COVID-19) RNA BOBBI+probe Ql (Unsp spec) [facility] Laboratory - Chemistry and C hemistry - challengeOrdered By: Gerardo García on 10-27-2024 AST [Catalytic activity/Vol] 15 U/L 15-37 [facility] Low density lipoprotein (LDL ) cholesterol measurementOrdered By: Gerardo García on 10-27-2024 Cholesterol in LDL [Mass/Vol] 119 mg/dL 0-130 [facility] Lymphocytes Auto (Unsp spec) [#/Vol]Ordered By: Gerardo García on 10-27-2024 Lymphocytes (Bld) [#/Vol] 3.96 10*3/uL 0.83-4.51 [facility] Lymphocytes/100 WBC Auto (Un sp spec)Ordered By: Gerardo García on 10-27-2024 Lymphocytes/100 WBC (Bld) 36.8 % 19-41 [facility] MCV (mean corpuscular volume ) determinationOrdered By: Gerardo García on 10-27-2024 MCV (RBC) [Entitic vol] 91.2 fL 81-99 [facility] Mean corpuscular hemoglobin (MCH) determinationOrdered By: Gerardo García on 10-27-2024 MCH (RBC) [Entitic mass] 29.2 pg 27.0-32.0 [facility] Mean corpuscular hemoglobin concentration (MCHC) determinationOrdered By: Gerardo García on 10-27-2024 MCHC (RBC) [Mass/Vol] 32.0 g/dL 32-36 [facility] Mean platelet volume determi nationOrdered By: Gerardo García on 10-27-2024 Platelet mean volume (Bld) [Entitic vol] 10.0 fL 6.2-12.0 [facility] Monocyte percentageOrdered B y: Gerardo García on 10-27-2024 Monocytes/100 WBC (Bld) 9.9 % 0-10 [facility] Neutrophil percentageOrdered By: Gerardo García on 10-27-2024 Neutrophils/100 WBC (Bld) 51.4 % 47-70 [facility] Nucleated red blood cell per centageOrdered By: Gerardo García on 10-27-2024 Nucleated RBC/100 WBC (Bld) [Ratio] 0 % 0-5 [facility] Platelet countOrdered By: Lenny García on 10-27-2024 Platelets (Bld) [#/Vol] 343 10*3/uL 150-450 [facility] Potassium measurementOrdered By: Gerardo García on 10-27-2024 Potassium [Moles/Vol] 4.2 mmol/L 3.5-5.1 [facility] RBC Auto (Bld) [#/Vol]Ordere d By: Gerardo García on 10-27-2024 RBC (Bld) [#/Vol] 4.52 10*6/uL 4.2-5.4 [facility] Serum anion gap measurementO rdered By: Gerardo García 10-27-2024 Anion gap [Moles/Vol] 9 mmol/L 5-15 [facility] Serum globulin measurementOr dered By: Gerardo García 10-27-2024 Globulin (S) [Mass/Vol] 5.8 g/dL High 2.2-4.2 [facility] Serum or plasma alanine masterson otransferase (ALT) measurementOrdered By: Gerardo García 10-27-2024 ALT [Catalytic activity/Vol] 11 U/L Low 13-56 [facility] Serum or plasma albumin yunior urement (mass/volume)Ordered By: Gerardo García 10-27-2024 Albumin [Mass/Vol] 2.8 g/dL Low 3.2-5.0 [facility] Serum or plasma alkaline terry sphatase measurementOrdered By: Gerardo García on 10-27-2024 ALP [Catalytic activity/Vol] 130 U/L High 45-117 [facility] Serum or plasma calcium yunior urement (mass/volume)Ordered By: Gerardo García on 10-27-2024 Calcium [Mass/Vol] 9.0 mg/dL 8.5-10.1 [facility] Serum or plasma cholesterol measurement (mass/volume)Ordered By: Gerardo García on 10-27-2024 Cholesterol [Mass/Vol] 187 mg/dL <200 [facility] Comment on above: <200 mg/dL Desirable 200-240 mg/dL Borderline >240 mg/dL High Risk Serum or plasma creatinine m easurement (mass/volume)Ordered By: Gerardo García on 10-27-2024 Creatinine [Mass/Vol] 2.01 mg/dL High 0.55-1.02 [facility] Comment on above: The validity of the calculated GFR & GFRAA in patients over 70 years has not been determined. Clinical correlation is essential. Serum or plasma urea nitroge n measurement (mass/volume)Ordered By: Gerardo García on 10-27-2024 Urea nitrogen [Mass/Vol] 20 mg/dL High 7-18 [facility] Sodium levelOrdered By: Gerardo García 10-27-2024 Sodium [Moles/Vol] 134 mmol/L Low 136-145 [facility] TSH QnOrdered By: Gerardo García o n 10-27-2024 Thyroid Stimulating Hormone (TSH) 2.330 uIU/mL 0.358-3.74 0 [facility] Total proteinOrdered By: Gerardo García 10-27-2024 Protein [Mass/Vol] 8.6 g/dL High 6.4-8.2 [facility] Triglycerides measurementOrd ered By: Gerardo García 10-27-2024 Triglyceride [Mass/Vol] 103 mg/dL <199 [facility] Comment on above: The drugs N-Acetylcy steine and Metamizole may falsely depress this assay.Serum Triglycerides Reference Interval Normal <150 mg/dL Borderline high 150 - 199 mg/dL High 200 - 499 mg/dL Very High > or = 500 mg/dL Very low density lipoprotein (VLDL) cholesterol measurementOrdered By: Gerardo García on 10-27-2024 VLDL Cholesterol 21 mg/dL 5-40 [facility] White blood cell (WBC) count Ordered By: Gerardo García on 10-27-2024 WBC (Bld) [#/Vol] 10.8 10*3/uL 4.4-11.0 [facility] No Panel Informationon 09-29 IMPRESSION: [...] and agree with the report as written. Field Sales Executive: LADARIUS Transcribe Date/Time: Sep 29 2024 3:16P Dictated by : GHULAM RIVERA DO This examination was interpreted and the report reviewed and electronically signed by: GHULAM RIVERA DO on Sep 29 2024 3:18PM [facility] No Panel InformationOrdered By: [facility] Provider on 09-29-2024 [facility] RF Guidance for exchange of [...] urology PROCEDURE SUMMARY - Target organ: Bilateral [place] kidneys - Antegrade nephrostogram(s) via the existing [...] contrast injection. Pre-existing genitourinary catheter: 8 F [facility] nephrostomy Genitourinary catheter(s) placed: 10 F argon [...] performed by the: attending radiologist, without an inventory assistant. The attending radiologist performed t (more content not included)... [facility] Provider, [facility] Stacia su[place] - 09/29/2024 * * *Final Report* * [...] urology PROCEDURE SUMMARY - Target organ: Bilateral [place] kidneys - Antegrade nephrostogram(s) via the existing [...] attending radiologist, without (more content not included)... [facility] Radiology Study observation (narrative) [facility] RF Kidney - bilateral Views [...] urology PROCEDURE SUMMARY - Target organ: Bilateral [place] kidneys - Antegrade nephrostogram(s) via the existing [...] performed by the: attending radiologist, without an inventory assistant. The attending radiologist performed the fo (more content not included)... [facility] Provider, [facility] - 09/29/2024 * * *Final Report* * * DATE OF EXAM: Sep 29 2024 11:16AM [facility] 7353 - IR NEPHROSTOGRAM BILAT / PROCEDURE [...] urology PROCEDURE SUMMARY - Target organ: Bilateral [place] kidneys - Antegrade nephrostogram(s) via the existing [...] without an a (more content not included)... [facility] Radiology Study observation (narrative) [facility] Guidance for exchange of nep [...] cc. Contrast: 15 mL of Visipaque 270. [facility] Provider, [facility] - 06/16/2024 * * *Final Report* * * DATE OF EXAM: Jun 16 2024 11:18AM [facility] 0777 - IR EXCHANGE NEPH TUBE / [...] in 8 to 10 weeks is recommended. Field Sales Executive: [facility] Transcribe Date/Time: Jun 16 2024 8:45P Dictated by : MAGNO CAMPBELL MD This examination was interpreted and the report reviewed and electronically signed by: MAGNO CAMPBELL MD on Jun 16 2024 10:30PM [facility] No Panel Informationon 06-16 IMPRESSION: 1. Successful recanalization of the partially removed left nephrostomy tube as described above. The new tube has adequate position and function. 2. No immediate complications. 3. Nephrostomy tube exchange in 8 to 10 weeks is recommended. Field Sales Executive: [facility] Transcribe Date/Time: Jun 16 2024 8:45P Dictated by : MAGNO CAMPBELL MD This examination was interpreted and the report reviewed and electronically signed by: MAGNO CAMPBELL MD on Jun 16 2024 10:30PM [facility] Radiology Study observation (narrative) [facility] No Panel InformationOrdered By: [facility]cf Provider on 06-16-2024 [facility] RF Kidney and Ureter and Uri nary bladder Views W contrast via nephrostomy tubeon 06-16-2024 * * *Final Report* * * DATE OF EXAM: Jun 16 2024 11:18AM [facility] 0778 - IR NEPHROSTOGRAM / PROCEDURE REASON: [...] cc. Contrast: 15 mL of Visipaque 270. [facility] Provider, Mayank Briggs - 06/16/2024 * * *Final Report* * * DATE OF EXAM: Jun 16 2024 11:18AM [facility] 0778 - IR NEPHROSTOGRAM / PROCEDURE REASON: [...] in 8 to 10 weeks is recommended. Field Sales Executive: [facility] Transcribe Date/Time: Jun 16 2024 8:45P Dictated by : MAGNO CAMPBELL MD This examination was interpreted and the report reviewed and electronically signed by: MAGNO CAMPBELL MD on Jun 16 2024 10:30PM [facility] No Panel Informationon 05-13 IMPRESSION: UNEVENTFUL EXCHANGE OF GENITOURINARY CATHETER(S) PLAN: Catheter may be allowed to drain passively into bag until next catheter exchange. Patient may return in approximately 8 weeks for routine exchange. Attestation Signer name: Jona Clark MD I attest that I was present for the entire procedure. I reviewed the stored images and agree with the report as written. Field Sales Executive: [facility] Transcribe Date/Time: May 13 2024 12:19P Dictated by : JONA CLARK MD This examination was interpreted and the report reviewed and electronically signed by: JONA CLARK MD on May 13 2024 12:24PM [facility] Radiology Study observation (narrative) [facility] No Panel InformationOrdered By: [facility] Provider on 05-13-2024 [facility] RF Guidance for exchange of [...] None PROCEDURE SUMMARY - Target organ: Bilateral [place] kidneys - Antegrade nephrostogram(s) via the existing [...] contrast injection. Pre-existing genitourinary catheter: 8 F [employer] nephrostomy Genitourinary catheter(s) placed: 8 F [employer] nephrostomy Findings: Well-positioned existing nephrostomy tube. No filling defects. No hydronephrosis. External catheter securement: Non-absorbable suture Left genitourinary catheter exchange Local anesthesia was administered. Initial nephrostogram was performed. A wire was placed through the existing tube and it was removed. The new tube was advanced over the wire and position was confirmed with contrast injection. Pre-existing genitourinary catheter: 8 F [employer] nephrostomy Genitourinary catheter(s) placed: 8 F [employer] nephrostomy Findings: Well-positioned existing nephrostomy tube. [...] procedure was performe (more content not included)... [facility] RADIOLOGY Provider, [facility] - 05/13/2024 * * *Final Report* * [...] None PROCEDURE SUMMARY - Target organ: Bilateral [place] kidneys - Antegrade nephrostogram(s) via the existing [...] contrast injection. Pre-existing genitourinary catheter: 8 F [employer] nephrostomy Genitourinary catheter(s) placed: 8 F [employer] nephrostomy Findings: Well-positioned existing nephrostomy tube. No filling defects. No hydronephrosis. External catheter securement: Non-absorbable suture Left genitourinary catheter exchange Local anesthesia was administered. Initial nephrostogram was performed. A wire was placed through the existing tube and it was removed. The new tube was advanced over the wire and position was confirmed with contrast injection. Pre-existing genitourinary catheter: 8 F [employer] nephrostomy Genitourinary catheter(s) placed: 8 F [employer] nephrostomy Findings: Well-positioned existing nephrostomy tube. [...] recovery room in (more content not included)... [facility] RF Kidney - bilateral Views [...] None PROCEDURE SUMMARY - Target organ: Bilateral [place] kidneys - Antegrade nephrostogram(s) via the existing [...] contrast injection. Pre-existing genitourinary catheter: 8 F [employer] nephrostomy Genitourinary catheter(s) placed: 8 F [employer] nephrostomy Findings: Well-positioned existing nephrostomy tube. No filling defects. No hydronephrosis. External catheter securement: Non-absorbable suture Left genitourinary catheter exchange Local anesthesia was administered. Initial nephrostogram was performed. A wire was placed through the existing tube and it was removed. The new tube was advanced over the wire and position was confirmed with contrast injection. Pre-existing genitourinary catheter: 8 F [employer] nephrostomy Genitourinary catheter(s) placed: 8 F [employer] nephrostomy Findings: Well-positioned existing nephrostomy tube. [...] was performed by (more content not included)... [facility] RADIOLOGY Provider, [facility] - 05/13/2024 * * *Final Report* * * DATE OF EXAM: May 13 2024 9:03AM [id number] - IR NEPHROSTOGRAM BILAT / PROCEDURE REASON: routine bilateral neph exchange * * * * Physician Interpretation * * * * PROCEDURE: GENITOURINARY CATHETER EXCHANGE Procedural Personnel Attending physician(s): Jona Calrk M.D. Fellow physician(s): None Resident physician(s): None Advanced practice provider(s): None Medical Student(s): None Pre-procedure diagnosis: Ureteral obstruction Post-procedure diagnosis: Same Indication: Routine scheduled exchange Additional clinical history: None PROCEDURE SUMMARY - Target organ: Bilateral [place] kidneys - Antegrade nephrostogram(s) via the existing [...] contrast injection. Pre-existing genitourinary catheter: 8 F [employer] nephrostomy Genitourinary catheter(s) placed: 8 F [employer] nephrostomy Findings: Well-positioned existing nephrostomy tube. No filling defects. No hydronephrosis. External catheter securement: Non-absorbable suture Left genitourinary catheter exchange Local anesthesia was administered. Initial nephrostogram was performed. A wire was placed through the existing tube and it was removed. The new tube was advanced over the wire and position was confirmed with contrast injection. Pre-existing genitourinary catheter: 8 F [employer] nephrostomy Genitourinary catheter(s) placed: 8 F [employer] nephrostomy Findings: Well-positioned existing nephrostomy tube. [...] recovery room in (more content not included)... [facility] Serum or plasma thyroid stim ulating hormone (TSH) measurement (units/volume)Ordered By: Gerardo García on 03-17-2024 TSH Qn 2.11 uIU/mL 0.358-3.74 [facility] Absolute lymphocyte countOrd ered By: Julianna Matthews on 02-17-2024 Lymphocytes Auto (Unsp spec) [#/Vol] 4.47 10*3/uL 0.83-4.51 [facility] Automated lymphocyte count a s percentage of total leukocytesOrdered By: Julianna Matthews on 02-17-2024 Lymphocytes/100 WBC Auto (Unsp spec) 41.4 % 19-41 [facility] Basophil percentageOrdered B y: Julianna Matthews on 02-17-2024 Basophils/100 WBC (Bld) 0.5 % 0-1 [facility] Chloride [Moles/Vol] 115 mmol/L 98-107 [facility] Eosinophils/100 WBC (Bld) 4.2 % 0-5 [facility] Glucose [Mass/Vol] 90 mg/dL 74-106 [facility] Hemoglobin (Bld) [Mass/Vol] 12.4 g/dL 12.0-15.0 [facility] Monocytes/100 WBC (Bld) 6.8 % 0-10 [facility] Neutrophils (Bld) [#/Vol] 5.1 10*3/uL 2.0-7.7 [facility] Neutrophils/100 WBC (Bld) 46.8 % 47-70 [facility] Potassium [Moles/Vol] 3.7 mmol/L 3.5-5.1 [facility] Sodium [Moles/Vol] 142 mmol/L 136-145 [facility] WBC (Bld) [#/Vol] 10.8 10*3/uL 4.4-11.0 [facility] Determination of erythrocyte mean corpuscular volume (MCV)Ordered By: Julianna Matthews on 02-17-2024 MCV (RBC) [Entitic vol] 99.2 fL 81-99 [facility] Erythrocyte distribution wid th ratioOrdered By: Julianna Matthews on 02-17-2024 Erythrocyte distribution width (RBC) [Ratio] 13.2 % 11.6-14.6 [facility] Erythrocyte distribution wid th standard deviationOrdered By: Julianna Matthews on 02-17-2024 Erythrocyte distribution width (RBC) [Entitic vol] 47.9 fL 35.1-43.9 [facility] Hematocrit Auto (Bld) [Volum e fraction]Ordered By: Julianna Matthews on 02-17-2024 Hematocrit (Bld) [Volume fraction] 38.0 % 37-47 [facility] Immature granulocytes/100 WB C Auto (Bld)Ordered By: Julianna Matthews on 02-17-2024 Immature granulocytes/100 WBC (Bld) 0.300 % 0.0-0.9 [facility] Comment on above: IG% - Immature Granu locytes (promyelocytes, myelocytes and metamyelocytes) > 1% indicates that a LEFT SHIFT is Present. Laboratory - Chemistry and C hemistry - challengeOrdered By: Julianna Matthews on 02-17-2024 CO2 [Moles/Vol] 22.0 mmol/L 21.0-32.0 [facility] Urea nitrogen/Creatinine [Mass ratio] 9.3 mg/mg 10-20 [facility] Laboratory - Hematology and Cell countsOrdered By: Julianna Matthews on 02-17-2024 MCH (RBC) [Entitic mass] 32.4 pg 27.0-32.0 [facility] MCHC (RBC) [Mass/Vol] 32.6 g/dL 32-36 [facility] Nucleated RBC/100 WBC (Bld) [Ratio] 0 % 0-5 [facility] Platelet mean volume (Bld) [Entitic vol] 10.4 fL 6.2-12.0 [facility] Platelets (Bld) [#/Vol] 305 10*3/uL 150-450 [facility] No Panel InformationOrdered By: Julianna Matthews on 02-17-2024 Estimated Creatinine Clearance Calc 32.13 ml/min [facility] Estimated GFR (MDRD) Amer 40 mL/min >60 [facility] Comment on above: GFR Calc Estimated GFR (MDRD) Non-Af Amer 33 mL/min >60 [facility] Comment on above: Non- GFR Calc RBC Auto (Bld) [#/Vol]Ordere d By: Julianna Matthews on 02-17-2024 RBC (Bld) [#/Vol] 3.83 10*6/uL 4.2-5.4 [facility] Serum or plasma calcium yunior urement (mass/volume)Ordered By: Julianna Matthews on 02-17-2024 Calcium [Mass/Vol] 8.7 mg/dL 8.5-10.1 [facility] Serum or plasma creatinine m easurement (mass/volume)Ordered By: Julianna Matthews on 02-17-2024 Creatinine [Mass/Vol] 1.62 mg/dL 0.55-1.02 [facility] Comment on above: The validity of the calculated GFR & GFRAA in patients over 70 years has not been determined. Clinical correlation is essential. Serum or plasma urea nitroge n measurement (mass/volume)Ordered By: Julianna Matthews on 02-17-2024 Urea nitrogen [Mass/Vol] 15 mg/dL 7-18 [facility] Thin prep Papanicolaou smear with manual screeningOrdered By: Julianna Matthews on 02-17-2024 Thin prep Papanicolaou smear with manual screening 5 5-15 [facility] Laboratory - Chemistry and C hemistry - challengeOrdered By: Julianna Matthews on 02-16-2024 Magnesium [Mass/Vol] 2.6 mg/dL 1.6-2.6 [facility] Basophil percentageOrdered B y: Andres Fraser on 02-15-2024 Basophil percentage 3.5 mg/dL 2.5-4.9 [facility] Bilirubin [Mass/Vol] 0.90 mg/dL 0.20-1.00 [facility] Comment on above: For patients on eltr ombopag therapy, use of Dim[employer] [place] TBIL is not recommended. Protein [Mass/Vol] 6.7 g/dL 6.4-8.2 [facility] Laboratory - Chemistry and C hemistry - challengeOrdered By: Andres Fraser on 02-15-2024 Albumin/Globulin [Mass ratio] 0.5 {ratio} 0.9-2.4 [facility] ALP [Catalytic activity/Vol] 83 U/L 45-117 [facility] ALT [Catalytic activity/Vol] U/L 13-56 [facility] Globulin (S) [Mass/Vol] 4.4 g/dL 2.2-4.2 [facility] Thin prep Papanicolaou smear with manual screeningOrdered By: Andres Fraser on 02-15-2024 Thin prep Papanicolaou smear with manual screening 2.3 g/dL 3.2-5.0 [facility] Thin prep Papanicolaou smear with manual screening 13 U/L 15-37 [facility] Absolute lymphocyte countOrd ered By: Altafclaudia Villa on 02-14-2024 Lymphocytes Auto (Unsp spec) [#/Vol] 5.01 10*3/uL 0.83-4.51 [facility] Activated partial thrombopla stin time (aPTT) in platelet poor plasma by coagulation aOrdered By: Altafclaudia iVlla on 02-14-2024 aPTT Coag (PPP) [Time] 29.4 s 24.1-36.2 [facility] Automated lymphocyte count a s percentage of total leukocytesOrdered By: Altafclaudia Villa on 02-14-2024 Lymphocytes/100 WBC Auto (Unsp spec) 30.3 % 19-41 [facility] Basophil percentageOrdered B y: Altafclaudia Villa on 02-14-2024 Basophil percentage >100 SEEN /hpf 0-5 [facility] Basophils/100 WBC (Bld) 0.4 % 0-1 [facility] Bilirubin [Mass/Vol] 0.60 mg/dL 0.20-1.00 [facility] Comment on above: For patients on eltr ombopag therapy, use of [employer] [place] TBIL is not recommended. Chloride [Moles/Vol] 106 mmol/L 98-107 [facility] Eosinophils/100 WBC (Bld) 1.3 % 0-5 [facility] Glucose [Mass/Vol] 112 mg/dL 74-106 [facility] Comment on above: Fasting Glucose resu lt from 100 to 125 mg/dL suggests IMPAIRED HOMEOSTASIS per A.D.A. criteria. Hemoglobin (Bld) [Mass/Vol] 13.9 g/dL 12.0-15.0 [facility] Lactate [Moles/Vol] 1.0 mmol/L 0.4-2.0 [facility] Monocytes/100 WBC (Bld) 6.2 % 0-10 [facility] Neutrophils (Bld) [#/Vol] 10.2 10*3/uL 2.0-7.7 [facility] Neutrophils/100 WBC (Bld) 61.4 % 47-70 [facility] Potassium [Moles/Vol] 3.6 mmol/L 3.5-5.1 [facility] Protein [Mass/Vol] 8.0 g/dL 6.4-8.2 [facility] Sodium [Moles/Vol] 138 mmol/L 136-145 [facility] WBC (Bld) [#/Vol] 16.6 10*3/uL 4.4-11.0 [facility] Bilirubin Test strip Ql (U)O rdered By: Altaf Villa on 02-14-2024 Bilirubin Ql (U) Negative Negative [facility] Blood manual differential co mment interpretation (narrative result)Ordered By: Altaf Villa on 02-14-2024 Manual differential comment Pollo (Bld) [Interp] SEE COMMENT [facility] Comment on above: LYMPHOCYTOSIS NOTED Blood platelet adequacy dete ction by light microscopyOrdered By: Altaf Villa on 02-14-2024 Platelets LM Ql (Bld) ADEQUATE ADEQ [facility] Culture, urineOrdered By: Eric Villa on 02-14-2024 Bacteria identified Cx Nom (U) Pseudomonas aeruginosa [facility] Bacteria identified Cx Nom (U) Enterococcus faecalis [facility] Bacteria identified Cx Nom (U) Deandra albicans [facility] Determination of erythrocyte mean corpuscular volume (MCV)Ordered By: Altaf Villa on 02-14-2024 MCV (RBC) [Entitic vol] 97.0 fL 81-99 [facility] Erythrocyte distribution wid th ratioOrdered By: Altafclaudia Villa on 02-14-2024 Erythrocyte distribution width (RBC) [Ratio] 13.2 % 11.6-14.6 [facility] Erythrocyte distribution wid th standard deviationOrdered By: Altafclaudia Villa on 02-14-2024 Erythrocyte distribution width (RBC) [Entitic vol] 46.9 fL 35.1-43.9 [facility] Hematocrit Auto (Bld) [Volum e fraction]Ordered By: Altafclaudia Villa on 02-14-2024 Hematocrit (Bld) [Volume fraction] 41.8 % 37-47 [facility] Immature granulocytes/100 WB C Auto (Bld)Ordered By: Altaf Villa on 02-14-2024 Immature granulocytes/100 WBC (Bld) 0.400 % 0.0-0.9 [facility] Comment on above: IG% - Immature Granu locytes (promyelocytes, myelocytes and metamyelocytes) > 1% indicates that a LEFT SHIFT is Present. Ketones Test strip Ql (U)Ord ered By: Altaf Villa on 02-14-2024 Ketones Ql (U) Negative Negative [facility] Laboratory - Chemistry and C hemistry - challengeOrdered By: Altaf Villa on 02-14-2024 Albumin/Globulin [Mass ratio] 0.6 {ratio} 0.9-2.4 [facility] ALP [Catalytic activity/Vol] 104 U/L 45-117 [facility] ALT [Catalytic activity/Vol] 11 U/L 13-56 [facility] CO2 [Moles/Vol] 25.0 mmol/L 21.0-32.0 [facility] Globulin (S) [Mass/Vol] 5.1 g/dL 2.2-4.2 [facility] Urea nitrogen/Creatinine [Mass ratio] 12.0 mg/mg 10-20 [facility] Laboratory - CoagulationOrde red By: Altaf Villa on 02-14-2024 INR Coag (Bld) [Relative time] 1.0 {INR} [facility] PT Coag (PPP) [Time] 13.4 s 11.7-14.9 [facility] Laboratory - Hematology and Cell countsOrdered By: Altaf Villa on 02-14-2024 Anisocytosis Ql (Bld) RARE [facility] MCH (RBC) [Entitic mass] 32.3 pg 27.0-32.0 [facility] MCHC (RBC) [Mass/Vol] 33.3 g/dL 32-36 [facility] Nucleated RBC/100 WBC (Bld) [Ratio] 0 % 0-5 [facility] Platelet mean volume (Bld) [Entitic vol] 10.5 fL 6.2-12.0 [facility] Platelets (Bld) [#/Vol] 376 10*3/uL 150-450 [facility] Laboratory - Microbiology an d Antimicrobial susceptibilityOrdered By: Altaf Villa on 02-14-2024 Bacteria identified Cx Nom (Bld) No growth in 5 days. [facility] Macrocytes detectionOrdered By: Altaf Villa on 02-14-2024 Macrocytes Ql (Bld) RARE [facility] Mucus LM Ql (Urine sed)Order ed By: Altaf Villa on 02-14-2024 Mucus Ql (Urine sed) 0 SEEN /hpf [facility] Nitrite Test strip Ql (U)Ord ered By: Altafclaudia Barryo on 02-14-2024 Nitrite Ql (U) Negative Negative [facility] No Panel InformationOrdered By: Altaf Villa on 02-14-2024 Urine RBC 10-25 SEEN /hpf 0-5 [facility] Atypical Lymphocytes 1+ % [facility] Estimated Creatinine Clearance Calc 29.74 ml/min [facility] Estimated GFR (MDRD) Amer 37 mL/min >60 [facility] Comment on above: GFR Calc Estimated GFR (MDRD) Non-Af Amer 30 mL/min >60 [facility] Comment on above: Non- GFR Calc Ovalocyte detectionOrdered B y: Altaf Villa on 02-14-2024 Ovalocytes LM Ql (Bld) RARE [facility] Protein Test strip Ql (U)Ord ered By: Altaf Villa on 02-14-2024 Protein Ql (U) 100 mg/dl Negative [facility] RBC Auto (Bld) [#/Vol]Ordere d By: Altaf Villa on 02-14-2024 RBC (Bld) [#/Vol] 4.31 10*6/uL 4.2-5.4 [facility] RBC morphologyOrdered By: Eric Villa on 02-14-2024 RBC morphology finding Nom (Bld) N CHROM NORMAL NORM C&C [facility] Serum or plasma calcium yunior urement (mass/volume)Ordered By: Altaf Villa on 02-14-2024 Calcium [Mass/Vol] 8.4 mg/dL 8.5-10.1 [facility] Serum or plasma creatinine m easurement (mass/volume)Ordered By: Altaf Villa on 02-14-2024 Creatinine [Mass/Vol] 1.75 mg/dL 0.55-1.02 [facility] Comment on above: The validity of the calculated GFR & GFRAA in patients over 70 years has not been determined. Clinical correlation is essential. Serum or plasma urea nitroge n measurement (mass/volume)Ordered By: Altaf Villa on 02-14-2024 Urea nitrogen [Mass/Vol] 21 mg/dL 7-18 [facility] Squamous epithelial cells de tection in urine sediment by light microscopyOrdered By: Altaf Villa on 02-14-2024 Epithelial cells.squamous LM Ql (Urine sed) 0 SEEN /hpf 5-10 [facility] Thin prep Papanicolaou smear with manual screeningOrdered By: Altaf Villa on 02-14-2024 Thin prep Papanicolaou smear with manual screening 2.9 g/dL 3.2-5.0 [facility] Thin prep Papanicolaou smear with manual screening 12 U/L 15-37 [facility] Thin prep Papanicolaou smear with manual screening 7 5-15 [facility] Transitional cells detection in urine sediment by light microscopyOrdered By: Altaf Villa on 02-14-2024 Transitional cells LM Ql (Urine sed) 0-5 SEEN /hpf 0-5 [facility] Urine blood detectionOrdered By: Altaf Villa on 02-14-2024 RBC Ql (U) 250 /ul Negative [facility] Urine clarityOrdered By: Altaf Villa on 02-14-2024 Clarity (U) Cloudy Clear [facility] Urine color determinationOrd ered By: Altaf Villa on 02-14-2024 Color (U) Yellow Yellow [facility] Urine glucose detectionOrder ed By: lAtaf Villa on 02-14-2024 Glucose Ql (U) Normal mg/dl Normal [facility] Urine leukocyte esterase det ection by dipstickOrdered By: Altaf Villa on 02-14-2024 Leukocyte esterase Test strip Ql (U) 500 /ul Negative [facility] Urine pHOrdered By: Altaf avalos on 02-14-2024 pH (U) 6.5 [pH] 5.0 - 8.0 [facility] Urine sediment bacteria coun t by microscopy (number/high power field)Ordered By: Altaf Villa on 02-14-2024 Bacteria LM.HPF (Urine sed) [#/Area] RARE /hpf None Seen [facility] Urine sediment renal epithel ial cell count by microscopy (number/high power field)Ordered By: Altaf Villa on 02-14-2024 Epithelial cells.renal LM.HPF (Urine sed) [#/Area] 0 /[HPF] 0-5 [facility] Urine specific gravity measu rementOrdered By: Altafclaudia Villa on 02-14-2024 Specific gravity (U) [Rel density] 1.010 1.002-1.03 0 [facility] Urine urobilinogen measureme ntOrdered By: Altaf Villa on 02-14-2024 Urobilinogen Ql (U) Normal mg/dl Normal [facility] Absolute lymphocyte countOrd ered By: Gerardo Ricky on 02-04-2024 Lymphocytes Auto (Unsp spec) [#/Vol] 6.11 10*3/uL 0.83-4.51 [facility] Automated lymphocyte count a s percentage of total leukocytesOrdered By: Gerardo García on 02-04-2024 Lymphocytes/100 WBC Auto (Unsp spec) 44.3 % 19-41 [facility] Basophil percentageOrdered B y: Gerardo García on 02-04-2024 Basophils/100 WBC (Bld) 0.5 % 0-1 [facility] Bilirubin [Mass/Vol] 0.40 mg/dL 0.20-1.00 [facility] Comment on above: For patients on eltr ombopag therapy, use of [employer] [place] TBIL is not recommended. Chloride [Moles/Vol] 108 mmol/L 98-107 [facility] Cholesterol [Mass/Vol] 173 mg/dL <200 [facility] Comment on above: <200 mg/dL Desirable 200-240 mg/dL Borderline >240 mg/dL High Risk Eosinophils/100 WBC (Bld) 1.2 % 0-5 [facility] Glucose [Mass/Vol] 96 mg/dL 74-106 [facility] Hemoglobin (Bld) [Mass/Vol] 13.3 g/dL 12.0-15.0 [facility] Monocytes/100 WBC (Bld) 5.3 % 0-10 [facility] Neutrophils (Bld) [#/Vol] 6.7 10*3/uL 2.0-7.7 [facility] Neutrophils/100 WBC (Bld) 48.3 % 47-70 [facility] Potassium [Moles/Vol] 3.8 mmol/L 3.5-5.1 [facility] Protein [Mass/Vol] 8.4 g/dL 6.4-8.2 [facility] Sodium [Moles/Vol] 140 mmol/L 136-145 [facility] Triglyceride [Mass/Vol] 97 mg/dL <199 [facility] Comment on above: The drugs N-Acetylcy steine and Metamizole may falsely depress this assay.Serum Triglycerides Reference Interval Normal <150 mg/dL Borderline high 150 - 199 mg/dL High 200 - 499 mg/dL Very High > or = 500 mg/dL WBC (Bld) [#/Vol] 13.8 10*3/uL 4.4-11.0 [facility] Blood manual differential co mment interpretation (narrative result)Ordered By: Gerardo García on 02-04-2024 Manual differential comment Pollo (Bld) [Interp] SCANNED [facility] Determination of erythrocyte mean corpuscular volume (MCV)Ordered By: Gerardo García on 02-04-2024 MCV (RBC) [Entitic vol] 99.3 fL 81-99 [facility] Erythrocyte distribution wid th ratioOrdered By: Gerardo García on 02-04-2024 Erythrocyte distribution width (RBC) [Ratio] 13.5 % 11.6-14.6 [facility] Erythrocyte distribution wid th standard deviationOrdered By: Gerardo Ricky on 02-04-2024 Erythrocyte distribution width (RBC) [Entitic vol] 49.2 fL 35.1-43.9 [facility] Hematocrit Auto (Bld) [Volum e fraction]Ordered By: Gerardo García on 02-04-2024 Hematocrit (Bld) [Volume fraction] 41.6 % 37-47 [facility] Immature granulocytes/100 WB C Auto (Bld)Ordered By: Gerardo García on 02-04-2024 Immature granulocytes/100 WBC (Bld) 0.400 % 0.0-0.9 [facility] Comment on above: IG% - Immature Granu locytes (promyelocytes, myelocytes and metamyelocytes) > 1% indicates that a LEFT SHIFT is Present. Laboratory - Chemistry and C hemistry - challengeOrdered By: Gerardo García on 02-04-2024 Albumin/Globulin [Mass ratio] 0.5 {ratio} 0.9-2.4 [facility] ALP [Catalytic activity/Vol] 107 U/L 45-117 [facility] ALT [Catalytic activity/Vol] 12 U/L 13-56 [facility] Cholesterol in HDL [Mass/Vol] 44 mg/dL >40 [facility] Comment on above: The drugs N-Acetylcy steine and Metamizole may falsely depress this assay. Reference Range HDL <40 mg/dL Low HDL Cholesterol HDL >or= 60 mg/dL High HDL Cholesterol Cholesterol in LDL [Mass/Vol] 110 mg/dL 0-130 [facility] CO2 [Moles/Vol] 25.0 mmol/L 21.0-32.0 [facility] Globulin (S) [Mass/Vol] 5.5 g/dL 2.2-4.2 [facility] Urea nitrogen/Creatinine [Mass ratio] 10.4 mg/mg 10-20 [facility] Laboratory - Hematology and Cell countsOrdered By: Gerardo García on 02-04-2024 MCH (RBC) [Entitic mass] 31.7 pg 27.0-32.0 [facility] MCHC (RBC) [Mass/Vol] 32.0 g/dL 32-36 [facility] Nucleated RBC/100 WBC (Bld) [Ratio] 0 % 0-5 [facility] Platelet mean volume (Bld) [Entitic vol] 10.4 fL 6.2-12.0 [facility] Platelets (Bld) [#/Vol] 398 10*3/uL 150-450 [facility] No Panel InformationOrdered By: Gerardo García on 02-04-2024 Estimated GFR (MDRD) Amer 33 mL/min >60 [facility] Comment on above: GFR Calc Estimated GFR (MDRD) Non-Af Amer 27 mL/min >60 [facility] Comment on above: Non- GFR Calc Vitamin D 25-Hydroxy 56.2 ng/mL [facility] Comment on above: Vitamin D 25(OH) Sta tus Range Deficiency <20 ng/mL (50nmol/L) Insufficiency 20 - 30 ng/mL (50 - 75 nmol/L) Sufficiency 30 - 100 ng/mL (75 - 250 nmol/L) Toxicity >100 ng/mL (>250 nmol/L) VLDL Cholesterol 19 mg/dL 5-40 [facility] RBC Auto (Bld) [#/Vol]Ordere d By: Gerardo Ricky on 02-04-2024 RBC (Bld) [#/Vol] 4.19 10*6/uL 4.2-5.4 [facility] Serum or plasma calcium yunior urement (mass/volume)Ordered By: Gerardo García on 02-04-2024 Calcium [Mass/Vol] 8.4 mg/dL 8.5-10.1 [facility] Serum or plasma creatinine m easurement (mass/volume)Ordered By: Gerardo García on 02-04-2024 Creatinine [Mass/Vol] 1.93 mg/dL 0.55-1.02 [facility] Comment on above: The validity of the calculated GFR & GFRAA in patients over 70 years has not been determined. Clinical correlation is essential. Serum or plasma thyroid stim ulating hormone (TSH) measurement (units/volume)Ordered By: Gerardo García on 02-04-2024 TSH Qn 3.91 uIU/mL 0.358-3.74 [facility] Serum or plasma urea nitroge n measurement (mass/volume)Ordered By: Gerardo García on 02-04-2024 Urea nitrogen [Mass/Vol] 20 mg/dL 7-18 [facility] Thin prep Papanicolaou smear with manual screeningOrdered By: Gerardo García on 02-04-2024 Thin prep Papanicolaou smear with manual screening 2.9 g/dL 3.2-5.0 [facility] Thin prep Papanicolaou smear with manual screening 15 U/L 15-37 [facility] Thin prep Papanicolaou smear with manual screening 7 5-15 [facility] BRIEF OP NOTon 01-01-2024 BRIEF OP NOT HNO ID: [id number] Author: EDWINA PATEL MD Service: Radiology Author Type: Physician Type: Brief Op Note Filed: 01/01/2024 13:28 Note Text: INTERVENTIONAL RADIOLOGY POST PROCEDURE NOTE DATE: 01/01/24 NAME: Todd Delong LOG ID: [id number] Pre-Procedure Diagnosis: Radiation cystitis with bilateral ureteral stenosis [employer]inier Wire Weaver: Surgeon(s) and Role: * Edwina Patel MD, MD - Primary Procedure: Bilateral [...] Radiation cystitis with bilateral ureteral stenosis [facility] IR NEPHROSTOGRAMon IR NEPHROSTOGRAM * * *Final Report* * * DATE OF EXAM: Jan 01 2024 1:[facility] - IR NEPHROSTOGRAM / [...] the catheter was removed and a 5 Burkinan Berenstein catheter and angled Glidewire were used to successfully navigate the tract back into the right kidney. A new 35 cm 8 Burkinan Skater APDL locking pigtail drain was placed [...] placed in the left renal collecting system. Field Sales Executive: PSCB Transcribe Date/Time: Jan 01 2024 1:52P Dictated by : EDWINA PATEL MD This examination was interpreted and the report reviewed and electronically signed by: EDWINA PATEL MD on Jan 01 2024 1:59PM EST [id number] Normal [facility] RF Kidney and Ureter and Uri nary bladder Views W contrast Mikael 01-01-2024 [facility] Basic metabolic 2000 panelon 12-24-2023 Anion gap [Moles/Vol] 8 mmol/L 5 - 16 mmol/L [facility] Calcium [Mass/Vol] 9.6 mg/dL 8.5 - 10. 5 mg/dL [facility] Chloride [Moles/Vol] 109 mmol/L High 98 - 10 7 mmol/L [facility] CO2 [Moles/Vol] 24 mmol/L 21 - 32 mmol/L [facility] Creatinine [Mass/Vol] 2.09 mg/dL High 0.51 - 0.95 mg/dL [facility] Estimated Glomerular Filtration Rate 25 mL/min/1.73m Low >=60 mL/min/1.7 3m [facility] Glucose [Mass/Vol] 96 mg/dL 70 - 100 mg/dL [facility] Potassium [Moles/Vol] 4.1 mmol/L 3.5 - 5.1 mmol/L [facility] Sodium [Moles/Vol] 141 mmol/L 136 - 145 mmol/L [facility] Urea nitrogen [Mass/Vol] 23 mg/dL 7 - 26 mg/dL [facility] CNPNon 12-20-2023 CNPN Telephone (HCSIND) -- TODD DELONG ([id number]) 1950 F Date Time Provider Department 12/20/23 JOEY STRANGE [facility] During your visit today, we recorded the [...] was regular at 84. Please call pt [phone] or pt's daughter [phone] for adivce. Thank you Allergies As of [...] - ALBUTEROL SULFATE (VENTOLIN INHALATION) Inhale 1 Montegut as instructed every 4 hours as needed [...] Encounter Status:Closed by JOEY STRANGE on 12/20/23 [facility] 12-10-2023 CAROLYNEN Telephone (HCSIND) -- JAVIERTODD ([id number]) 1950 F Date Time Provider Department 12/10/23 [...] Reason for Visit: Home Care [4073] Cmt: IGGY pt missed visit with Home care today. [...] - ALBUTEROL SULFATE (VENTOLIN INHALATION) Inhale 1 Montegut as instructed every 4 hours as needed [...] Encounter Status:Closed by TAMIE BOONE on 12/10/23 Normal [facility] CNPNon 11-29-2023 CNPN Telephone (HCSIND) -- TODD DELONG ([id number]) 1950 F Date Time Provider Department 11/29/23 [...] please reply all, I have included pt's rn case mgr on this message as well. Or call pt with any other advice. [phone] Todd Delong Thank you! Jin Antonio MD [...] - ALBUTEROL SULFATE (VENTOLIN INHALATION) Inhale 1 Montegut as instructed every 4 hours as needed [...] 10/10/2023 Hydronephrosis [N13.30] 11/17/2023 Encounter Status:Closed by HUGOJOEY NOYOLA on 11/29/23 Normal [facility] CNPNon 11-26-2023 CNPN Telephone (HCSIND) -- TODD DELONG ([id number]) 1950 F Date Time Provider Department 11/26/23 TRUDY HOWELL HCSIND During your visit today, we recorded [...] would be greatly appreciated. Thank you, Trudy ZHOUN, Jin Ferrell MD 11/26/2023 1:52 PM Signed The nephrostomy tubes do not need flushed routinely. Change the dressing prn Allergies As of Date: 11/26/2023 Noted Allergy Reaction BACTRIM (SULFAMETHOXAZOLE) 01/04/2015 12 - Shortness of Breath INFLUENZA VIRUS VACCINES 01/04/2015 16 - Unknown PRAVASTATIN 01/04/2015 5 - Intolerance PREDNISONE 01/04/2015 16 - Unknown Date Reviewed: 11/26/2023 Reviewed by: Trudy Howell RN - Fully Assessed Reason for Visit: Home [...] - ALBUTEROL SULFATE (VENTOLIN INHALATION) Inhale 1 Montegut as instructed every 4 hours as needed [...] Encounter Status:Closed by TRUDY HOWELL on 12/10/23 [facility] 11-24-2023 [facility] TODD DEL[facility] ([id number]) 1950 F Date Time Provider Department 11/24/23 [...] - ALBUTEROL SULFATE (VENTOLIN INHALATION) Inhale 1 Montegut as instructed every 4 hours as needed. [...] Encounter Status:Closed by PAZ CANO on 11/24/23 [facility] 11-23-2023 CNPN Telephone (HCSIND) -- TODD DELONG ([id number]) 1950 F Date Time Provider Department 11/23/23 BERNADETTE KING During your visit today, we recorded the following information about you: Bernadette King LPN 11/23/2023 4:05 PM Signed Hello there! (Spoke with: Lily- daughter ) My name is Bernadette King LPN and I'm calling from [facility]. Your doctor wants [...] your transition home smooth. A nurse (tim novak- nurse or therapist ) will visit you within 2 days of leaving the hospital to get you started with home care. Is that okay with you? Yes They'll contact you the night before or the morning of the visit to tell you when they'll arrive. Would you like them to call or text you? Call [phone] Great! What address will we be seeing you at? [address] [facility] [address] [facility] [address], [place] [address] Do you have any upcoming appointments or things we need to schedule around? No When they call or text, the number might be unfamiliar or blocked. If they leave a message, please reply so we can plan your visit. Homecare helps with your recovery. During the first visit, the nurse (tim novak- nurse or therapist) will talk with you, [...] - ALBUTEROL SULFATE (VENTOLIN INHALATION) Inhale 1 Montegut as instructed every 4 hours as needed. [...] JESSICA KING (more content not included)... Normal [facility] Telephone (HCSIND) -- TODD DELONG ([id number]) 1950 F Date Time Provider Department 11/23/23 KRYSTA GOMES HCSIND During your visit today, we recorded the following information about you: Krysta Gomes 11/23/2023 2:52 PM Signed 11/23/2023 Unable to LM for Patient to return call to [facility] Krysta SWEENEY Allergies As of Date: 11/23/2023 Noted [...] - ALBUTEROL SULFATE (VENTOLIN INHALATION) Inhale 1 Montegut as instructed every 4 hours as needed. [...] 10/10/2023 Hydronephrosis [N13.30] 11/17/2023 Encounter Status:Closed by KRYSTA GOMES on 11/23/23 Normal [facility] Absolute lymphocyte countOrd ered By: Brian Mckee on 11-16-2023 Lymphocytes Auto (Unsp spec) [#/Vol] 3.40 10*3/uL 0.83-4.51 [facility] Basophil percentageOrdered B y: Brian Mckee on 11-16-2023 Basophil percentage 50-100 SEEN /hpf 0-5 [facility] Comment on above: Previous reported re sult: 5-10 SEEN /hpfEdited by: HARMONY on 11/16/23:1900 AMENDED REPORT 11/16/231900 WBC previously reported as: 5-10 SEEN /hpf Bilirubin [Mass/Vol] 0.70 mg/dL 0.20-1.00 [facility] Comment on above: For patients on eltr ombopag therapy, use of Dimension [place] TBIL is not recommended. Chloride [Moles/Vol] 112 mmol/L 98-107 [facility] Glucose [Mass/Vol] 92 mg/dL 74-106 [facility] Lactate [Moles/Vol] 0.8 mmol/L 0.4-2.0 [facility] Potassium [Moles/Vol] 4.7 mmol/L 3.5-5.1 [facility] Comment on above: Moderate Hemolysis, Result may be falsely increased. Protein [Mass/Vol] 6.9 g/dL 6.4-8.2 [facility] Sodium [Moles/Vol] 136 mmol/L 136-145 [facility] Basophils/100 WBC (Bld) 0.4 % 0-1 [facility] Eosinophils/100 WBC (Bld) 0.2 % 0-5 [facility] Neutrophils (Bld) [#/Vol] 14.4 10*3/uL 2.0-7.7 [facility] Neutrophils/100 WBC (Bld) 75.4 % 47-70 [facility] WBC (Bld) [#/Vol] 19.1 10*3/uL 4.4-11.0 [facility] Bilirubin Test strip Ql (U)O rdered By: Brian Mckee on 11-16-2023 Bilirubin Ql (U) Negative Negative [facility] Blood erythrocytes count (nu mber/volume)Ordered By: Brian Mckee on 11-16-2023 RBC (Bld) [#/Vol] 3.51 10*6/uL 4.2-5.4 [facility] Blood hemoglobin measurement (mass/volume)Ordered By: Brian Mckee on 11-16-2023 Hemoglobin (Bld) [Mass/Vol] 11.0 g/dL 12.0-15.0 [facility] Blood lymphocytes/100 leukoc ytesOrdered By: Brian Mckee on 11-16-2023 Lymphocytes/100 WBC (Bld) 17.8 % 19-41 [facility] Blood monocytes/100 leukocyt esOrdered By: Brian Mckee on 11-16-2023 Monocytes/100 WBC (Bld) 5.1 % 0-10 [facility] Blood platelet adequacy dete ction by light microscopyOrdered By: Brian Mckee on 11-16-2023 Platelets LM Ql (Bld) ADEQUATE ADEQ [facility] Blood platelet mean volumeOr dered By: Brian Mckee on 11-16-2023 Platelet mean volume (Bld) [Entitic vol] 11.2 fL 6.2-12.0 [facility] Culture, urineOrdered By: Viktor Mckee on 11-16-2023 Bacteria identified Cx Nom (U) Deandra albicans [facility] Determination of erythrocyte mean corpuscular volume (MCV)Ordered By: Brian Mckee on 11-16-2023 MCV (RBC) [Entitic vol] 98.3 fL 81-99 [facility] Hematocrit Auto (Bld) [Volum e fraction]Ordered By: Brian Mckee on 11-16-2023 Hematocrit (Bld) [Volume fraction] 34.5 % 37-47 [facility] Ketones Test strip Ql (U)Ord ered By: Brian Mckee on 11-16-2023 Ketones Ql (U) Negative Negative [facility] Laboratory - Chemistry and C hemistry - challengeOrdered By: Brian Mckee on 11-16-2023 ALP [Catalytic activity/Vol] 96 U/L 45-117 [facility] ALT [Catalytic activity/Vol] 8 U/L 13-56 [facility] CO2 [Moles/Vol] 15.0 mmol/L 21.0-32.0 [facility] Globulin (S) [Mass/Vol] 5.1 g/dL 2.2-4.2 [facility] Urea nitrogen/Creatinine [Mass ratio] 5.8 mg/mg 10-20 [facility] Laboratory - CoagulationOrde red By: Brian Mckee on 11-16-2023 aPTT Coag (Bld) [Time] 30.1 s 24.1-36.2 [facility] PT Coag (PPP) [Time] 15.1 s 11.7-14.9 [facility] Laboratory - Hematology and Cell countsOrdered By: Brian Mckee on 11-16-2023 Erythrocyte distribution width (RBC) [Entitic vol] 55.7 fL 35.1-43.9 [facility] Erythrocyte distribution width (RBC) [Ratio] 15.6 % 11.6-14.6 [facility] Immature granulocytes/100 WBC (Bld) 1.100 % 0.0-0.9 [facility] Comment on above: IG% - Immature Granu locytes (promyelocytes, myelocytes and metamyelocytes) > 1% indicates that a LEFT SHIFT is Present. MCH (RBC) [Entitic mass] 31.3 pg 27.0-32.0 [facility] Nucleated RBC/100 WBC (Bld) [Ratio] 0 % 0-5 [facility] Laboratory - Microbiology an d Antimicrobial susceptibilityOrdered By: Brian Mckee on 11-16-2023 SARS-CoV-2 (COVID-19) RNA BOBBI+probe Ql (Unsp spec) [facility] Bacteria identified Cx Nom (Bld) No growth in 5 days. [facility] MCHC Auto (RBC) [Mass/Vol]Or dered By: Brian Mckee on 11-16-2023 MCHC (RBC) [Mass/Vol] 31.9 g/dL 32-36 [facility] Mucus LM Ql (Urine sed)Order ed By: Brian Mckee on 11-16-2023 Mucus Ql (Urine sed) 0 SEEN /hpf [facility] Nitrite Test strip Ql (U)Ord ered By: Brian Mckee on 11-16-2023 Nitrite Ql (U) Negative Negative [facility] No Panel InformationOrdered By: Brian Mckee on 11-16-2023 Ionized Calcium 3.57 mg/dL 4.36-5.20 [facility] Estimated Creatinine Clearance Calc 13.14 ml/min [facility] Estimated GFR (MDRD) Amer 14 mL/min >60 [facility] Comment on above: GFR Calc Estimated GFR (MDRD) Non-Af Amer 12 mL/min >60 [facility] Comment on above: Non- GFR Calc Troponin I High Sensitivity 16 pg/mL 3.0-54.0 [facility] Comment on above: Please Note: [place] t Units and Gender Specific Reference Ranges. For more information see Policy Stat Procedure [place] High Sensitivity Troponin (TNIH) and attachments. Platelets bldOrdered By: The josé Mckee on 11-16-2023 Platelets (Bld) [#/Vol] TNP [facility] Comment on above: Test not performedPl ease note: For this sample, a platelet estimate is provided rather than a platelet count due to platelet clumping. Other parameters associated with this sample are not affected by platelet clumping. If a more accurate platelet count is required, a redraw of the patient will be necessary.Previous reported result: [id number] by: ULISES on 11/16/23:1802 Protein Test strip Ql (U)Ord ered By: Brian Mckee on 11-16-2023 Protein Ql (U) 30 mg/dl Negative [facility] Serum or plasma albumin yunior urement (mass/volume)Ordered By: Brian Mckee on 11-16-2023 Albumin [Mass/Vol] 1.8 g/dL 3.2-5.0 [facility] Serum or plasma albumin/glob ulin mass ratioOrdered By: Brian Mckee on 11-16-2023 Albumin/Globulin [Mass ratio] 0.4 {ratio} 0.9-2.4 [facility] Serum or plasma calcium yunior urement (mass/volume)Ordered By: Brian Mckee on 11-16-2023 Calcium [Mass/Vol] 5.9 mg/dL 8.5-10.1 [facility] Comment on above: Critical Result(s) C alled at: 19:17:50 11/16/2023 by: Africa Nino to [employer]Martin[facility]. Results read back by same. Serum or plasma creatinine m easurement (mass/volume)Ordered By: Brian Mckee on 11-16-2023 Creatinine [Mass/Vol] 3.96 mg/dL 0.55-1.02 [facility] Comment on above: The validity of the calculated GFR & GFRAA in patients over 70 years has not been determined. Clinical correlation is essential. Serum or plasma urea nitroge n measurement (mass/volume)Ordered By: Brian Mckee on 11-16-2023 Urea nitrogen [Mass/Vol] 23 mg/dL 7-18 [facility] Squamous epithelial cells de tection in urine sediment by light microscopyOrdered By: Brian Mckee on 11-16-2023 Epithelial cells.squamous LM Ql (Urine sed) 0 SEEN /hpf 5-10 [facility] Thin prep Papanicolaou smear with manual screeningOrdered By: Brian Mckee on 11-16-2023 Thin prep Papanicolaou smear with manual screening 16 U/L 15-37 [facility] Comment on above: Moderate Hemolysis, Result may be falsely increased. Thin prep Papanicolaou smear with manual screening 9 5-15 [facility] Urine blood detectionOrdered By: Brian Mckee on 11-16-2023 RBC Ql (U) 50 /ul Negative [facility] RBC Ql (U) 0 SEEN /hpf 0-5 [facility] Urine clarityOrdered By: Eladio Mckee on 11-16-2023 Clarity (U) Sl. Cloudy Clear [facility] Urine color determinationOrd ered By: Brian Mckee on 11-16-2023 Color (U) Yellow Yellow [facility] Urine glucose detectionOrder ed By: Brian Mckee on 11-16-2023 Glucose Ql (U) Normal mg/dl Normal [facility] Urine leukocyte esterase det ection by dipstickOrdered By: Brian Mckee on 11-16-2023 Leukocyte esterase Test strip Ql (U) 500 /ul Negative [facility] Urine pHOrdered By: Brian delarosa on 11-16-2023 pH (U) 6.5 [pH] 5.0 - 8.0 [facility] Urine sediment bacteria coun t by microscopy (number/high power field)Ordered By: Brian Mckee on 11-16-2023 Bacteria LM.HPF (Urine sed) [#/Area] 0 /[HPF] None Seen [facility] Urine specific gravity measu rementOrdered By: Brian Mckee on 11-16-2023 Specific gravity (U) [Rel density] 1.005 1.002-1.03 0 [facility] Urobilinogen Auto test strip Ql (U)Ordered By: Brian Mckee on 11-16-2023 Urobilinogen Ql (U) Normal mg/dl Normal [facility] Whole blood international no rmalized ratio (INR)Ordered By: Brian Mckee on 11-16-2023 INR Coag (Bld) [Relative time] 1.2 {INR} [facility] Absolute lymphocyte countOrd ered By: Rafa Lofton on 11-13-2023 Lymphocytes Auto (Unsp spec) [#/Vol] 3.47 10*3/uL 0.83-4.51 [facility] Basophil percentageOrdered B y: Rafa Lofton on 11-13-2023 Basophil percentage 83 mg/dL 74-106 [facility] Basophil percentage 6.2 g/dL 6.4-8.2 [facility] Basophil percentage 0.50 mg/dL 0.20-1.00 [facility] Basophil percentage 139 mmol/L 136-145 [facility] Basophil percentage 3.7 mmol/L 3.5-5.1 [facility] Basophil percentage 112 mmol/L 98-107 [facility] Basophils (Bld) [#/Vol] 18.3 10*3/uL 4.4-11.0 [facility] Basophils (Bld) [#/Vol] 13.5 10*3/uL 2.0-7.7 [facility] Basophils/100 WBC (Bld) 74.1 % 47-70 [facility] Basophils/100 WBC (Bld) 1.0 % 0-5 [facility] Basophils/100 WBC (Bld) 0.3 % 0-1 [facility] Bilirubin [Mass/Vol] 0.50 mg/dL 0.20-1.00 [facility] Comment on above: For patients on eltr ombopag therapy, use of Dimension [place] TBIL is not recommended. Chloride [Moles/Vol] 112 mmol/L 98-107 [facility] Eosinophils/100 WBC (Bld) 1.0 % 0-5 [facility] Glucose [Mass/Vol] 83 mg/dL 74-106 [facility] Neutrophils (Bld) [#/Vol] 13.5 10*3/uL 2.0-7.7 [facility] Neutrophils/100 WBC (Bld) 74.1 % 47-70 [facility] Potassium [Moles/Vol] 3.7 mmol/L 3.5-5.1 [facility] Protein [Mass/Vol] 6.2 g/dL 6.4-8.2 [facility] Sodium [Moles/Vol] 139 mmol/L 136-145 [facility] WBC (Bld) [#/Vol] 18.3 10*3/uL 4.4-11.0 [facility] Blood erythrocytes count (nu mber/volume)Ordered By: Rafa Lofton on 11-13-2023 RBC (Bld) [#/Vol] 3.11 10*6/uL 4.2-5.4 [facility] Blood hemoglobin measurement (mass/volume)Ordered By: Rafa Lofton on 11-13-2023 Hemoglobin (Bld) [Mass/Vol] 9.5 g/dL 12.0-15.0 [facility] Blood lymphocytes/100 leukoc ytesOrdered By: Rafa Lofton on 11-13-2023 Lymphocytes/100 WBC (Bld) 19.0 % 19-41 [facility] Blood monocytes/100 leukocyt esOrdered By: Rafa Lofton on 11-13-2023 Monocytes/100 WBC (Bld) 4.5 % 0-10 [facility] Blood platelet mean volumeOr dered By: Rafa Lofton on 11-13-2023 Platelet mean volume (Bld) [Entitic vol] 10.1 fL 6.2-12.0 [facility] Determination of erythrocyte mean corpuscular volume (MCV)Ordered By: Rafa Lofton on 11-13-2023 MCV (RBC) [Entitic vol] 98.7 fL 81-99 [facility] Hematocrit Auto (Bld) [Volum e fraction]Ordered By: Rafa Lofton on 11-13-2023 Hematocrit (Bld) [Volume fraction] 30.7 % 37-47 [facility] Laboratory - Chemistry and C hemistry - challengeOrdered By: Rafa Lofton on 11-13-2023 ALP [Catalytic activity/Vol] 90 U/L 45-117 [facility] ALT [Catalytic activity/Vol] U/L 13-56 [facility] CO2 [Moles/Vol] 16.0 mmol/L 21.0-32.0 [facility] Globulin (S) [Mass/Vol] 4.6 g/dL 2.2-4.2 [facility] Urea nitrogen/Creatinine [Mass ratio] 6.2 mg/mg 10-20 [facility] Laboratory - Hematology and Cell countsOrdered By: Rafa Lofton on 11-13-2023 Erythrocyte distribution width (RBC) [Entitic vol] 55.6 fL 35.1-43.9 [facility] Erythrocyte distribution width (RBC) [Ratio] 15.5 % 11.6-14.6 [facility] Immature granulocytes/100 WBC (Bld) 1.100 % 0.0-0.9 [facility] Comment on above: IG% - Immature Granu locytes (promyelocytes, myelocytes and metamyelocytes) > 1% indicates that a LEFT SHIFT is Present. MCH (RBC) [Entitic mass] 30.5 pg 27.0-32.0 [facility] Nucleated RBC/100 WBC (Bld) [Ratio] 0 % 0-5 [facility] MCHC Auto (RBC) [Mass/Vol]Or dered By: Rafa Lofton on 11-13-2023 MCHC (RBC) [Mass/Vol] 30.9 g/dL 32-36 [facility] No Panel InformationOrdered By: Rafa Lofton on 11-13-2023 Estimated Creatinine Clearance Calc 12.88 ml/min [facility] Estimated GFR (MDRD) Amer 14 mL/min >60 [facility] Comment on above: GFR Calc Estimated GFR (MDRD) Non-Af Amer 12 mL/min >60 [facility] Comment on above: Non- GFR Calc 30.5 pg 27.0-32.0 [facility] 15.5 % 11.6-14.6 [facility] 55.6 fl 35.1-43.9 [facility] 1.100 % 0.0-0.9 [facility] 0 % 0-5 [facility] 12 mL/min >60 [facility] 14 mL/min >60 [facility] 12.88 ml/min [facility] 6.2 RATIO 10-20 [facility] 4.6 g/dL 2.2-4.2 [facility] 90 U/L 45-117 [facility] < 6 U/L 13-56 [facility] 16.0 mmol/L 21.0-32.0 [facility] Platelets bldOrdered By: Radha Lofton on 11-13-2023 Platelets (Bld) [#/Vol] 310 10*3/uL 150-450 [facility] Serum or plasma albumin yunior urement (mass/volume)Ordered By: Rafa Lofton on 11-13-2023 Albumin [Mass/Vol] 1.6 g/dL 3.2-5.0 [facility] Serum or plasma albumin/glob ulin mass ratioOrdered By: Rafa Lofton on 11-13-2023 Albumin/Globulin [Mass ratio] 0.3 {ratio} 0.9-2.4 [facility] Serum or plasma calcium yunior urement (mass/volume)Ordered By: Rafa Lofton on 11-13-2023 Calcium [Mass/Vol] 6.7 mg/dL 8.5-10.1 [facility] Serum or plasma creatinine m easurement (mass/volume)Ordered By: Rafa Lofton on 11-13-2023 Creatinine [Mass/Vol] 4.04 mg/dL 0.55-1.02 [facility] Comment on above: The validity of the calculated GFR & GFRAA in patients over 70 years has not been determined. Clinical correlation is essential. Serum or plasma urea nitroge n measurement (mass/volume)Ordered By: Rafa Lofton on 11-13-2023 Urea nitrogen [Mass/Vol] 25 mg/dL 7-18 [facility] Thin prep Papanicolaou smear with manual screeningOrdered By: Rafa Lofton on 11-13-2023 Thin prep Papanicolaou smear with manual screening 11 U/L 15-37 [facility] Thin prep Papanicolaou smear with manual screening 11 5-15 [facility] Blood manual differential co mment interpretation (narrative result)Ordered By: Rafa Lofton on 11-12-2023 Manual differential comment Pollo (Bld) [Interp] SCANNED [facility] Comment on above: NEUTROPHILLIA PRESEN T Basophil percentageOrdered B y: Andres Fraser on 11-11-2023 Basophil percentage 1.2 mmol/L 0.4-2.0 [facility] Lactate [Moles/Vol] 1.2 mmol/L 0.4-2.0 [facility] Absolute lymphocyte countOrd ered By: South Gutiérrez on 11-10-2023 Lymphocytes Auto (Unsp spec) [#/Vol] 7.90 10*3/uL 0.83-4.51 [facility] Bacteria identified Cx Nom ( U)Ordered By: Andres Fraser on 11-10-2023 Culture, urine Positive [facility] Basophil percentageOrdered B y: South Gutiérrez on 11-10-2023 Basophil percentage 111 mg/dL 74-106 [facility] Basophil percentage 8.3 g/dL 6.4-8.2 [facility] Basophil percentage 0.80 mg/dL 0.20-1.00 [facility] Basophil percentage 139 mmol/L 136-145 [facility] Basophil percentage 3.6 mmol/L 3.5-5.1 [facility] Basophil percentage 110 mmol/L 98-107 [facility] Basophil percentage 1.9 mmol/L 0.4-2.0 [facility] Basophils (Bld) [#/Vol] 21.9 10*3/uL 4.4-11.0 [facility] Basophils (Bld) [#/Vol] 12.4 10*3/uL 2.0-7.7 [facility] Basophils/100 WBC (Bld) 56.4 % 47-70 [facility] Basophils/100 WBC (Bld) 0.6 % 0-5 [facility] Basophils/100 WBC (Bld) 0.4 % 0-1 [facility] Basophil percentage >100 SEEN /hpf 0-5 [facility] Comment on above: Microscopic field is filled. Other elements may be obscured. Bilirubin Test strip Ql (U)O rdered By: South Gutiérrez on 11-10-2023 Bilirubin Ql (U) Negative Negative [facility] Blood erythrocytes count (nu mber/volume)Ordered By: South Gutiérrez on 11-10-2023 RBC (Bld) [#/Vol] 3.91 10*6/uL 4.2-5.4 [facility] Blood hemoglobin measurement (mass/volume)Ordered By: South Gutiérrez on 11-10-2023 Hemoglobin (Bld) [Mass/Vol] 12.3 g/dL 12.0-15.0 [facility] Blood lymphocytes/100 leukoc ytesOrdered By: South Gutiérrez on 11-10-2023 Lymphocytes/100 WBC (Bld) 36.1 % 19-41 [facility] Blood manual differential co mment interpretation (narrative result)Ordered By: South Gutiérrez on 11-10-2023 Manual differential comment Pollo (Bld) [Interp] SCANNED [facility] Blood monocytes/100 leukocyt esOrdered By: South Gutiérrez on 11-10-2023 Monocytes/100 WBC (Bld) 5.9 % 0-10 [facility] Blood platelet mean volumeOr dered By: South Gutiérrez on 11-10-2023 Platelet mean volume (Bld) [Entitic vol] 10.2 fL 6.2-12.0 [facility] Culture, urineOrdered By: Damir Fraser on 11-10-2023 Bacteria identified Cx Nom (U) Positive [facility] Determination of erythrocyte mean corpuscular volume (MCV)Ordered By: South Gutiérrez on 11-10-2023 MCV (RBC) [Entitic vol] 98.0 fL 81-99 [facility] Hematocrit Auto (Bld) [Volum e fraction]Ordered By: South Gutiérrez on 11-10-2023 Hematocrit (Bld) [Volume fraction] 38.3 % 37-47 [facility] Ketones Test strip Ql (U)Ord ered By: South Gutiérrez on 11-10-2023 Ketones Ql (U) Negative Negative [facility] Laboratory - Microbiology an d Antimicrobial susceptibilityOrdered By: South Gutiérrez on 11-10-2023 Bacteria identified Cx Nom (Bld) No growth in 5 days. [facility] MCHC Auto (RBC) [Mass/Vol]Or dered By: South Gutiérrez on 11-10-2023 MCHC (RBC) [Mass/Vol] 32.1 g/dL 32-36 [facility] Mucus LM Ql (Urine sed)Order ed By: South Gutiérrez on 11-10-2023 Mucus Ql (Urine sed) 0 SEEN /hpf [facility] Nitrite Test strip Ql (U)Ord ered By: South Gutiérrez on 11-10-2023 Nitrite Ql (U) Negative Negative [facility] No Panel InformationOrdered By: South Gutiérrez on 11-10-2023 31.5 pg 27.0-32.0 [facility] 15.4 % 11.6-14.6 [facility] 54.4 fl 35.1-43.9 [facility] 0.600 % 0.0-0.9 [facility] 0.1 % 0-5 [facility] 21 mL/min >60 [facility] 26 mL/min >60 [facility] 21.69 ml/min [facility] 6.2 RATIO 10-20 [facility] 5.8 g/dL 2.2-4.2 [facility] 112 U/L 45-117 [facility] 11 U/L 13-56 [facility] 19.0 mmol/L 21.0-32.0 [facility] Platelets bldOrdered By: Ismael Gutiérrez on 11-10-2023 Platelets (Bld) [#/Vol] 408 10*3/uL 150-450 [facility] Protein Test strip Ql (U)Ord ered By: South Gutiérrez on 11-10-2023 Protein Ql (U) 100 mg/dl Negative [facility] Serum or plasma albumin yunior urement (mass/volume)Ordered By: South Gutiérrez on 11-10-2023 Albumin [Mass/Vol] 2.5 g/dL 3.2-5.0 [facility] Serum or plasma albumin/glob ulin mass ratioOrdered By: South Gutiérrez on 11-10-2023 Albumin/Globulin [Mass ratio] 0.4 {ratio} 0.9-2.4 [facility] Serum or plasma calcium yunior urement (mass/volume)Ordered By: South Gutiérrez on 11-10-2023 Calcium [Mass/Vol] 7.6 mg/dL 8.5-10.1 [facility] Serum or plasma creatinine m easurement (mass/volume)Ordered By: South Gutiérrez on 11-10-2023 Creatinine [Mass/Vol] 2.40 mg/dL 0.55-1.02 [facility] Serum or plasma urea nitroge n measurement (mass/volume)Ordered By: South Gutiérrez on 11-10-2023 Urea nitrogen [Mass/Vol] 15 mg/dL 7-18 [facility] Squamous epithelial cells de tection in urine sediment by light microscopyOrdered By: South Gutiérrez on 11-10-2023 Epithelial cells.squamous LM Ql (Urine sed) 0 SEEN /hpf 5-10 [facility] Thin prep Papanicolaou smear with manual screeningOrdered By: South Gutiérrez on 11-10-2023 Thin prep Papanicolaou smear with manual screening 13 U/L 15-37 [facility] Thin prep Papanicolaou smear with manual screening 10 5-15 [facility] Urine blood detectionOrdered By: South Gutiérrez on 11-10-2023 RBC Ql (U) 150 /ul Negative [facility] RBC Ql (U) 0 SEEN /hpf 0-5 [facility] Urine clarityOrdered By: Ismael Gutiérrez on 11-10-2023 Clarity (U) Cloudy Clear [facility] Urine color determinationOrd ered By: South Gutiérrez on 11-10-2023 Color (U) Yellow Yellow [facility] Urine glucose detectionOrder ed By: South Gutiérrez on 11-10-2023 Glucose Ql (U) Normal mg/dl Normal [facility] Urine leukocyte esterase det ection by dipstickOrdered By: South Gutiérrez on 11-10-2023 Leukocyte esterase Test strip Ql (U) 500 /ul Negative [facility] Urine pHOrdered By: South kuhn on 11-10-2023 pH (U) 6.5 [pH] 5.0 - 8.0 [facility] Urine sediment bacteria coun t by microscopy (number/high power field)Ordered By: South Gutiérrez on 11-10-2023 Bacteria LM.HPF (Urine sed) [#/Area] 0 /[HPF] None Seen [facility] Urine specific gravity measu rementOrdered By: Souht Gutiérrez on 11-10-2023 Specific gravity (U) [Rel density] 1.010 1.002-1.03 0 [facility] Urobilinogen Auto test strip Ql (U)Ordered By: South Gutiérrez on 11-10-2023 Urobilinogen Ql (U) Normal mg/dl Normal [facility] Absolute lymphocyte countOrd ered By: Rafa Glynn on 11-06-2023 Lymphocytes Auto (Unsp spec) [#/Vol] 4.08 10*3/uL 0.83-4.51 [facility] Bacteria identified Cx Nom ( U)Ordered By: Rafa Glynn on 11-06-2023 Culture, urine Mixed Gram Pos & Gra m Neg Org [facility] Basophil percentageOrdered B y: Rafa Glynn on 11-06-2023 Basophil percentage 101 mg/dL 74-106 [facility] Basophil percentage 139 mmol/L 136-145 [facility] Basophil percentage 3.3 mmol/L 3.5-5.1 [facility] Basophil percentage 106 mmol/L 98-107 [facility] Basophils (Bld) [#/Vol] 16.0 10*3/uL 4.4-11.0 [facility] Basophils (Bld) [#/Vol] 10.7 10*3/uL 2.0-7.7 [facility] Basophils/100 WBC (Bld) 66.6 % 47-70 [facility] Basophils/100 WBC (Bld) 0.6 % 0-5 [facility] Basophils/100 WBC (Bld) 0.4 % 0-1 [facility] Chloride [Moles/Vol] 106 mmol/L 98-107 [facility] Eosinophils/100 WBC (Bld) 0.6 % 0-5 [facility] Glucose [Mass/Vol] 101 mg/dL 74-106 [facility] Comment on above: Fasting Glucose resu lt from 100 to 125 mg/dL suggests IMPAIRED HOMEOSTASIS per A.D.A. criteria. Neutrophils (Bld) [#/Vol] 10.7 10*3/uL 2.0-7.7 [facility] Neutrophils/100 WBC (Bld) 66.6 % 47-70 [facility] Potassium [Moles/Vol] 3.3 mmol/L 3.5-5.1 [facility] Sodium [Moles/Vol] 139 mmol/L 136-145 [facility] WBC (Bld) [#/Vol] 16.0 10*3/uL 4.4-11.0 [facility] Basophil percentage 25-50 SEEN /hpf 0-5 [facility] Bilirubin Test strip Ql (U)O rdered By: Rafa Glynn on 11-06-2023 Bilirubin Ql (U) Negative Negative [facility] Blood erythrocytes count (nu mber/volume)Ordered By: Rafa Glynn on 11-06-2023 RBC (Bld) [#/Vol] 3.78 10*6/uL 4.2-5.4 [facility] Blood hemoglobin measurement (mass/volume)Ordered By: Rafa Glynn on 11-06-2023 Hemoglobin (Bld) [Mass/Vol] 11.6 g/dL 12.0-15.0 [facility] Blood lymphocytes/100 leukoc ytesOrdered By: Rafa Glynn on 11-06-2023 Lymphocytes/100 WBC (Bld) 25.5 % 19-41 [facility] Blood monocytes/100 leukocyt esOrdered By: Rafa Glynn on 11-06-2023 Monocytes/100 WBC (Bld) 6.2 % 0-10 [facility] Blood platelet mean volumeOr dered By: Rafa Glynn on 11-06-2023 Platelet mean volume (Bld) [Entitic vol] 9.9 fL 6.2-12.0 [facility] Culture, urineOrdered By: Davian Glynn on 11-06-2023 Bacteria identified Cx Nom (U) Mixed Gram Pos & Gram Neg Org [facility] Determination of erythrocyte mean corpuscular volume (MCV)Ordered By: Rafa Glynn on 11-06-2023 MCV (RBC) [Entitic vol] 98.7 fL 81-99 [facility] Hematocrit Auto (Bld) [Volum e fraction]Ordered By: Rafa Glynn on 11-06-2023 Hematocrit (Bld) [Volume fraction] 37.3 % 37-47 [facility] Ketones Test strip Ql (U)Ord ered By: Rafa Glynn on 11-06-2023 Ketones Ql (U) Negative Negative [facility] Laboratory - Chemistry and C hemistry - challengeOrdered By: Rafa Glynn on 11-06-2023 CO2 [Moles/Vol] 24.0 mmol/L 21.0-32.0 [facility] Urea nitrogen/Creatinine [Mass ratio] 7.4 mg/mg 10-20 [facility] Laboratory - Hematology and Cell countsOrdered By: Rafa Glynn on 11-06-2023 Erythrocyte distribution width (RBC) [Entitic vol] 54.0 fL 35.1-43.9 [facility] Erythrocyte distribution width (RBC) [Ratio] 15.1 % 11.6-14.6 [facility] Immature granulocytes/100 WBC (Bld) 0.700 % 0.0-0.9 [facility] Comment on above: IG% - Immature Granu locytes (promyelocytes, myelocytes and metamyelocytes) > 1% indicates that a LEFT SHIFT is Present. MCH (RBC) [Entitic mass] 30.7 pg 27.0-32.0 [facility] Nucleated RBC/100 WBC (Bld) [Ratio] 0 % 0-5 [facility] MCHC Auto (RBC) [Mass/Vol]Or dered By: Rafa Glynn on 11-06-2023 MCHC (RBC) [Mass/Vol] 31.1 g/dL 32-36 [facility] Mucus LM Ql (Urine sed)Order ed By: Rafa Glynn on 11-06-2023 Mucus Ql (Urine sed) 0 SEEN /hpf [facility] Nitrite Test strip Ql (U)Ord ered By: Rafa Glynn on 11-06-2023 Nitrite Ql (U) Positive Negative [facility] No Panel InformationOrdered By: Rafa Glynn on 11-06-2023 Estimated GFR (MDRD) Amer 24 mL/min >60 [facility] Comment on above: GFR Calc Estimated GFR (MDRD) Non-Af Amer 19 mL/min >60 [facility] Comment on above: Non- GFR Calc 30.7 pg 27.0-32.0 [facility] 15.1 % 11.6-14.6 [facility] 54.0 fl 35.1-43.9 [facility] 0.700 % 0.0-0.9 [facility] 0 % 0-5 [facility] 19 mL/min >60 [facility] 24 mL/min >60 [facility] 7.4 RATIO 10-20 [facility] 24.0 mmol/L 21.0-32.0 [facility] Platelets bldOrdered By: Radha Glynn on 11-06-2023 Platelets (Bld) [#/Vol] 330 10*3/uL 150-450 [facility] Protein Test strip Ql (U)Ord ered By: Rafa Glynn on 11-06-2023 Protein Ql (U) 100 mg/dl Negative [facility] Serum or plasma calcium yunior urement (mass/volume)Ordered By: Rafa Glynn on 11-06-2023 Calcium [Mass/Vol] 7.3 mg/dL 8.5-10.1 [facility] Serum or plasma creatinine m easurement (mass/volume)Ordered By: Rafa Glynn on 11-06-2023 Creatinine [Mass/Vol] 2.58 mg/dL 0.55-1.02 [facility] Comment on above: The validity of the calculated GFR & GFRAA in patients over 70 years has not been determined. Clinical correlation is essential. Serum or plasma urea nitroge n measurement (mass/volume)Ordered By: Rafa Glynn on 11-06-2023 Urea nitrogen [Mass/Vol] 19 mg/dL 7-18 [facility] Squamous epithelial cells de tection in urine sediment by light microscopyOrdered By: Rafa Glynn on 11-06-2023 Epithelial cells.squamous LM Ql (Urine sed) 0-5 SEEN /hpf 5-10 [facility] Thin prep Papanicolaou smear with manual screeningOrdered By: Rafa Glynn on 11-06-2023 Thin prep Papanicolaou smear with manual screening 9 5-15 [facility] Urine blood detectionOrdered By: Rafa Glynn on 11-06-2023 RBC Ql (U) 250 /ul Negative [facility] RBC Ql (U) 25-50 SEEN /hpf 0-5 [facility] Urine clarityOrdered By: Radha Glynn on 11-06-2023 Clarity (U) Sl. Cloudy Clear [facility] Urine color determinationOrd ered By: Rafa Glynn on 11-06-2023 Color (U) Yellow Yellow [facility] Urine glucose detectionOrder ed By: Rafa Glynn on 11-06-2023 Glucose Ql (U) Normal mg/dl Normal [facility] Urine leukocyte esterase det ection by dipstickOrdered By: Rafa Glynn on 11-06-2023 Leukocyte esterase Test strip Ql (U) 500 /ul Negative [facility] Urine pHOrdered By: Rafa garcia on 11-06-2023 pH (U) 6.5 [pH] 5.0 - 8.0 [facility] Urine sediment bacteria coun t by microscopy (number/high power field)Ordered By: Rafa Glynn on 11-06-2023 Bacteria LM.HPF (Urine sed) [#/Area] 2 /[HPF] None Seen [facility] Urine specific gravity measu rementOrdered By: Rafa Glynn on 11-06-2023 Specific gravity (U) [Rel density] 1.010 1.002-1.03 0 [facility] Urobilinogen Auto test strip Ql (U)Ordered By: Rafa Glynn on 11-06-2023 Urobilinogen Ql (U) Normal mg/dl Normal [facility] Basophil percentageOrdered B y: Gerardo García on 10-30-2023 Basophil percentage 155 mg/dL <200 [facility] Basophil percentage 124 mg/dL <199 [facility] Cholesterol [Mass/Vol] 155 mg/dL <200 [facility] Comment on above: <200 mg/dL Desirable 200-240 mg/dL Borderline >240 mg/dL High Risk Triglyceride [Mass/Vol] 124 mg/dL <199 [facility] Comment on above: The drugs N-Acetylcy steine and Metamizole may falsely depress this assay.Serum Triglycerides Reference Interval Normal <150 mg/dL Borderline high 150 - 199 mg/dL High 200 - 499 mg/dL Very High > or = 500 mg/dL No Panel InformationOrdered By: Gerardo García on 10-30-2023 Thyroid Stimulating Hormone (TSH) 2.78 uIU/mL 0.358-3.74 [facility] 2.78 uIU/mL 0.358-3.74 [facility] Serum or plasma cholesterol in HDL measurement (mass/volume)Ordered By: Gerardo García on 10-30-2023 Cholesterol in HDL [Mass/Vol] 36 mg/dL >40 [facility] Comment on above: The drugs N-Acetylcy steine and Metamizole may falsely depress this assay. Reference Range HDL <40 mg/dL Low HDL Cholesterol HDL >or= 60 mg/dL High HDL Cholesterol Serum or plasma cholesterol in VLDL measurement (mass/volume)Ordered By: Gerardo García on 10-30-2023 Cholesterol in VLDL [Mass/Vol] 25 mg/dL 5-40 [facility] Serum or plasma low density lipoprotein (LDL) cholesterol measurement (mass/volume)Ordered By: Gerardo García on 10-30-2023 Cholesterol in LDL [Mass/Vol] 94 mg/dL 0-130 [facility] Absolute lymphocyte countOrd ered By: Luz Maria Matthews on 10-23-2023 Lymphocytes Auto (Unsp spec) [#/Vol] 6.51 10*3/uL 0.83-4.51 [facility] Basophil percentageOrdered B y: Luz Maria Matthews on 10-23-2023 Basophil percentage 104 mg/dL 74-106 [facility] Basophil percentage 3.5 mg/dL 2.5-4.9 [facility] Basophil percentage 138 mmol/L 136-145 [facility] Basophil percentage 3.0 mmol/L 3.5-5.1 [facility] Basophil percentage 106 mmol/L 98-107 [facility] Basophils (Bld) [#/Vol] 16.5 10*3/uL 4.4-11.0 [facility] Basophils (Bld) [#/Vol] 8.7 10*3/uL 2.0-7.7 [facility] Basophils/100 WBC (Bld) 52.4 % 47-70 [facility] Basophils/100 WBC (Bld) 0.7 % 0-5 [facility] Basophils/100 WBC (Bld) 0.5 % 0-1 [facility] Chloride [Moles/Vol] 106 mmol/L 98-107 [facility] Eosinophils/100 WBC (Bld) 0.7 % 0-5 [facility] Glucose [Mass/Vol] 104 mg/dL 74-106 [facility] Comment on above: Fasting Glucose resu lt from 100 to 125 mg/dL suggests IMPAIRED HOMEOSTASIS per A.D.A. criteria. Neutrophils (Bld) [#/Vol] 8.7 10*3/uL 2.0-7.7 [facility] Neutrophils/100 WBC (Bld) 52.4 % 47-70 [facility] Potassium [Moles/Vol] 3.0 mmol/L 3.5-5.1 [facility] Comment on above: Slight Hemolysis, Re sult may be falsely increased. Sodium [Moles/Vol] 138 mmol/L 136-145 [facility] WBC (Bld) [#/Vol] 16.5 10*3/uL 4.4-11.0 [facility] Blood erythrocytes count (nu mber/volume)Ordered By: Luz Maria Matthews on 10-23-2023 RBC (Bld) [#/Vol] 3.78 10*6/uL 4.2-5.4 [facility] Blood hemoglobin measurement (mass/volume)Ordered By: Luz Maria Matthews on 10-23-2023 Hemoglobin (Bld) [Mass/Vol] 11.8 g/dL 12.0-15.0 [facility] Blood lymphocytes/100 leukoc ytesOrdered By: Luz Maria Matthews on 10-23-2023 Lymphocytes/100 WBC (Bld) 39.4 % 19-41 [facility] Blood manual differential co mment interpretation (narrative result)Ordered By: Luz Maria Matthews on 10-23-2023 Manual differential comment Pollo (Bld) [Interp] SCANNED [facility] Comment on above: LYMPHOCYTOSIS NOTED Blood monocytes/100 leukocyt esOrdered By: Luz Maria Matthews on 10-23-2023 Monocytes/100 WBC (Bld) 6.3 % 0-10 [facility] Blood platelet mean volumeOr dered By: Luz Maria Matthews on 10-23-2023 Platelet mean volume (Bld) [Entitic vol] 11.1 fL 6.2-12.0 [facility] Determination of erythrocyte mean corpuscular volume (MCV)Ordered By: Luz Maria Matthews on 10-23-2023 MCV (RBC) [Entitic vol] 98.1 fL 81-99 [facility] Hematocrit Auto (Bld) [Volum e fraction]Ordered By: Luz Maria Matthews on 10-23-2023 Hematocrit (Bld) [Volume fraction] 37.1 % 37-47 [facility] Laboratory - Chemistry and C hemistry - challengeOrdered By: Luz Maria Matthews on 10-23-2023 CO2 [Moles/Vol] 22.0 mmol/L 21.0-32.0 [facility] Urea nitrogen/Creatinine [Mass ratio] 7.6 mg/mg 10-20 [facility] Laboratory - Hematology and Cell countsOrdered By: Luz Maria Matthews on 10-23-2023 Erythrocyte distribution width (RBC) [Entitic vol] 54.8 fL 35.1-43.9 [facility] Erythrocyte distribution width (RBC) [Ratio] 15.1 % 11.6-14.6 [facility] Immature granulocytes/100 WBC (Bld) 0.700 % 0.0-0.9 [facility] Comment on above: IG% - Immature Granu locytes (promyelocytes, myelocytes and metamyelocytes) > 1% indicates that a LEFT SHIFT is Present. MCH (RBC) [Entitic mass] 31.2 pg 27.0-32.0 [facility] Nucleated RBC/100 WBC (Bld) [Ratio] 0 % 0-5 [facility] MCHC Auto (RBC) [Mass/Vol]Or dered By: Luz Maria Matthews on 10-23-2023 MCHC (RBC) [Mass/Vol] 31.8 g/dL 32-36 [facility] No Panel InformationOrdered By: Luz Maria Matthews on 10-23-2023 Estimated GFR (MDRD) Amer 35 mL/min >60 [facility] Comment on above: GFR Calc Estimated GFR (MDRD) Non-Af Amer 29 mL/min >60 [facility] Comment on above: Non- GFR Calc Parathyroid Hormone (Intact) 108.4 pg/mL 18.4-80.1 [facility] Vitamin D 25-Hydroxy 60.2 ng/mL [facility] Comment on above: Vitamin D 25(OH) Sta tus Range Deficiency <20 ng/mL (50nmol/L) Insufficiency 20 - 30 ng/mL (50 - 75 nmol/L) Sufficiency 30 - 100 ng/mL (75 - 250 nmol/L) Toxicity >100 ng/mL (>250 nmol/L) 31.2 pg 27.0-32.0 [facility] 15.1 % 11.6-14.6 [facility] 54.8 fl 35.1-43.9 [facility] 0.700 % 0.0-0.9 [facility] 0 % 0-5 [facility] 29 mL/min >60 [facility] 35 mL/min >60 [facility] 7.6 RATIO 10-20 [facility] 22.0 mmol/L 21.0-32.0 [facility] 60.2 ng/mL [facility] 108.4 pg/mL 18.4-80.1 [facility] Platelets bldOrdered By: Emmanuel Matthews on 10-23-2023 Platelets (Bld) [#/Vol] 479 10*3/uL 150-450 [facility] Serum or plasma albumin yunior urement (mass/volume)Ordered By: Luz Maria Matthews on 10-23-2023 Albumin [Mass/Vol] 2.4 g/dL 3.2-5.0 [facility] Serum or plasma calcium yunior urement (mass/volume)Ordered By: Luz Maria Matthews on 10-23-2023 Calcium [Mass/Vol] 7.9 mg/dL 8.5-10.1 [facility] Serum or plasma creatinine m easurement (mass/volume)Ordered By: Luz Maria Matthews on 10-23-2023 Creatinine [Mass/Vol] 1.84 mg/dL 0.55-1.02 [facility] Comment on above: The validity of the calculated GFR & GFRAA in patients over 70 years has not been determined. Clinical correlation is essential. Serum or plasma urea nitroge n measurement (mass/volume)Ordered By: Luz Maria Matthews on 10-23-2023 Urea nitrogen [Mass/Vol] 14 mg/dL 06-05 [facility] Absolute lymphocyte countOrd ered By: Carlene Bower on 10-09-2023 Lymphocytes Auto (Unsp spec) [#/Vol] 4.11 10*3/uL 0.83-4.51 [facility] Bacteria identified Cx Nom ( U)Ordered By: Carlene Bower on 10-09-2023 Culture, urine Mixed Gram Pos & Gra m Neg Org [facility] Basophil percentageOrdered B y: Carlene Bower on 10-09-2023 Basophil percentage >100 SEEN /hpf 0-5 [facility] Basophil percentage 1.3 mmol/L 0.4-2.0 [facility] Basophil percentage 115 mg/dL 74-106 [facility] Basophil percentage 8.3 g/dL 6.4-8.2 [facility] Basophil percentage 0.30 mg/dL 0.20-1.00 [facility] Basophil percentage 136 mmol/L 136-145 [facility] Basophil percentage 4.3 mmol/L 3.5-5.1 [facility] Basophil percentage 106 mmol/L 98-107 [facility] Basophils (Bld) [#/Vol] 15.5 10*3/uL 4.4-11.0 [facility] Basophils (Bld) [#/Vol] 10.0 10*3/uL 2.0-7.7 [facility] Basophils/100 WBC (Bld) 64.5 % 47-70 [facility] Basophils/100 WBC (Bld) 1.0 % 0-5 [facility] Basophils/100 WBC (Bld) 0.6 % 0-1 [facility] Bilirubin Test strip Ql (U)O rdered By: Carlene Bower on 10-09-2023 Bilirubin Ql (U) Negative Negative [facility] Blood erythrocytes count (nu mber/volume)Ordered By: Carlene Bower on 10-09-2023 RBC (Bld) [#/Vol] 3.76 10*6/uL 4.2-5.4 [facility] Blood hemoglobin measurement (mass/volume)Ordered By: Carlene Bower on 10-09-2023 Hemoglobin (Bld) [Mass/Vol] 11.6 g/dL 12.0-15.0 [facility] Blood lymphocytes/100 leukoc ytesOrdered By: Carlene Bower on 10-09-2023 Lymphocytes/100 WBC (Bld) 26.5 % 19-41 [facility] Blood monocytes/100 leukocyt esOrdered By: Carlene Bower on 10-09-2023 Monocytes/100 WBC (Bld) 5.7 % 0-10 [facility] Blood platelet mean volumeOr dered By: Carlene Bower on 10-09-2023 Platelet mean volume (Bld) [Entitic vol] 10.1 fL 6.2-12.0 [facility] Determination of erythrocyte mean corpuscular volume (MCV)Ordered By: Carlene Bower on 10-09-2023 MCV (RBC) [Entitic vol] 96.3 fL 81-99 [facility] Direct bilirubinOrdered By: Carlene Bower on 10-09-2023 Bilirubin.direct [Mass/Vol] 0.14 mg/dL 0.00-0.30 [facility] Hematocrit Auto (Bld) [Volum e fraction]Ordered By: Carlene Bower on 10-09-2023 Hematocrit (Bld) [Volume fraction] 36.2 % 37-47 [facility] Ketones Test strip Ql (U)Ord ered By: Carlene Bower on 10-09-2023 Ketones Ql (U) Negative Negative [facility] MCHC Auto (RBC) [Mass/Vol]Or dered By: Carlene oBwer on 10-09-2023 MCHC (RBC) [Mass/Vol] 32.0 g/dL 32-36 [facility] Mucus LM Ql (Urine sed)Order ed By: Carlene Bower on 10-09-2023 Mucus Ql (Urine sed) 0 SEEN /hpf [facility] Nitrite Test strip Ql (U)Ord ered By: Carlene Bower on 10-09-2023 Nitrite Ql (U) Negative Negative [facility] No Panel InformationOrdered By: Carlene Bower on 10-09-2023 30.9 pg 27.0-32.0 [facility] 14.6 % 11.6-14.6 [facility] 51.8 fl 35.1-43.9 [facility] 1.700 % 0.0-0.9 [facility] 0 % 0-5 [facility] 10 mL/min >60 [facility] 12 mL/min >60 [facility] 9.3 RATIO 10-20 [facility] 6.3 g/dL 2.2-4.2 [facility] 92 U/L 45-117 [facility] 20 U/L 13-56 [facility] 22.0 mmol/L 21.0-32.0 [facility] No growth in 5 days. [facility] Platelets bldOrdered By: Eileen Bower on 10-09-2023 Platelets (Bld) [#/Vol] 461 10*3/uL 150-450 [facility] Protein Test strip Ql (U)Ord ered By: Carlene Bower on 10-09-2023 Protein Ql (U) 100 mg/dl Negative [facility] Serum or plasma albumin yunior urement (mass/volume)Ordered By: Carlene Bower on 10-09-2023 Albumin [Mass/Vol] 2.0 g/dL 3.2-5.0 [facility] Serum or plasma calcium yunior urement (mass/volume)Ordered By: Carlene Bower on 10-09-2023 Calcium [Mass/Vol] 8.0 mg/dL 8.5-10.1 [facility] Serum or plasma creatinine m easurement (mass/volume)Ordered By: Carlene Bower on 10-09-2023 Creatinine [Mass/Vol] 4.72 mg/dL 0.55-1.02 [facility] Serum or plasma urea nitroge n measurement (mass/volume)Ordered By: Carlene Bower on 10-09-2023 Urea nitrogen [Mass/Vol] 44 mg/dL 7-18 [facility] Squamous epithelial cells de tection in urine sediment by light microscopyOrdered By: Carlene Bower on 10-09-2023 Epithelial cells.squamous LM Ql (Urine sed) 0-5 SEEN /hpf 5-10 [facility] Thin prep Papanicolaou smear with manual screeningOrdered By: Carlene Bower on 10-09-2023 Thin prep Papanicolaou smear with manual screening 20 U/L 15-37 [facility] Thin prep Papanicolaou smear with manual screening 8 5-15 [facility] Urine blood detectionOrdered By: Carlene Bower on 10-09-2023 RBC Ql (U) 250 /ul Negative [facility] RBC Ql (U) 5-10 SEEN /hpf 0-5 [facility] Urine clarityOrdered By: Eileen Bower on 10-09-2023 Clarity (U) Cloudy Clear [facility] Urine color determinationOrd ered By: Carlene Bower on 10-09-2023 Color (U) Yellow Yellow [facility] Urine glucose detectionOrder ed By: Carlene Bower on 10-09-2023 Glucose Ql (U) Normal mg/dl Normal [facility] Urine leukocyte esterase det ection by dipstickOrdered By: Carlene Bower on 10-09-2023 Leukocyte esterase Test strip Ql (U) 500 /ul Negative [facility] Urine pHOrdered By: Carlene Bower on 10-09-2023 pH (U) 6.0 [pH] 5.0 - 8.0 [facility] Urine sediment bacteria coun t by microscopy (number/high power field)Ordered By: Carlene Bower on 10-09-2023 Bacteria LM.HPF (Urine sed) [#/Area] 2 /[HPF] None Seen [facility] Urine specific gravity measu rementOrdered By: Carlene Bower on 10-09-2023 Specific gravity (U) [Rel density] 1.010 1.002-1.03 0 [facility] Urobilinogen Auto test strip Ql (U)Ordered By: Carlene Bower on 10-09-2023 Urobilinogen Ql (U) Normal mg/dl Normal [facility] Absolute lymphocyte countOrd ered By: Gerardo García on 10-08-2023 Lymphocytes Auto (Unsp spec) [#/Vol] 5.09 10*3/uL 0.83-4.51 [facility] Bacteria identified Cx Nom ( U)Ordered By: Gerardo García on 10-08-2023 Culture, urine Escherichia coli [facility] Basophil percentageOrdered B y: Gerardo García on 10-08-2023 Basophil percentage 134 mg/dL 74-106 [facility] Basophil percentage 133 mmol/L 136-145 [facility] Basophil percentage 4.4 mmol/L 3.5-5.1 [facility] Basophil percentage 106 mmol/L 98-107 [facility] Basophil percentage 1.2 mmol/L 0.4-2.0 [facility] Basophils (Bld) [#/Vol] 20.2 10*3/uL 4.4-11.0 [facility] Basophils (Bld) [#/Vol] 13.4 10*3/uL 2.0-7.7 [facility] Basophils/100 WBC (Bld) 0.4 % 0-1 [facility] Basophils/100 WBC (Bld) 66.6 % 47-70 [facility] Basophils/100 WBC (Bld) 0.6 % 0-5 [facility] Chloride [Moles/Vol] 106 mmol/L 98-107 [facility] Eosinophils/100 WBC (Bld) 0.6 % 0-5 [facility] Glucose [Mass/Vol] 134 mg/dL 74-106 [facility] Comment on above: Fasting Glucose resu lt greater than or equal to 126 mg/dL suggests DIABETES MELLITUS per A.D.A. criteria. Lactate [Moles/Vol] 1.2 mmol/L 0.4-2.0 [facility] Neutrophils (Bld) [#/Vol] 13.4 10*3/uL 2.0-7.7 [facility] Neutrophils/100 WBC (Bld) 66.6 % 47-70 [facility] Potassium [Moles/Vol] 4.4 mmol/L 3.5-5.1 [facility] Sodium [Moles/Vol] 133 mmol/L 136-145 [facility] WBC (Bld) [#/Vol] 20.2 10*3/uL 4.4-11.0 [facility] Blood erythrocytes count (nu mber/volume)Ordered By: Gerardo García on 10-08-2023 RBC (Bld) [#/Vol] 3.94 10*6/uL 4.2-5.4 [facility] Blood hemoglobin measurement (mass/volume)Ordered By: Gerardo García on 10-08-2023 Hemoglobin (Bld) [Mass/Vol] 12.5 g/dL 12.0-15.0 [facility] Blood lymphocytes/100 leukoc ytesOrdered By: Gerardo García on 10-08-2023 Lymphocytes/100 WBC (Bld) 25.2 % 19-41 [facility] Blood manual differential co mment interpretation (narrative result)Ordered By: Gerardo García on 10-08-2023 Manual differential comment Pollo (Bld) [Interp] SCANNED [facility] Comment on above: LYMPHOCYTOSIS NOTED Blood monocytes/100 leukocyt esOrdered By: Gerardo García on 10-08-2023 Monocytes/100 WBC (Bld) 5.6 % 0-10 [facility] Blood platelet mean volumeOr dered By: Gerardo García on 10-08-2023 Platelet mean volume (Bld) [Entitic vol] 9.7 fL 6.2-12.0 [facility] Determination of erythrocyte mean corpuscular volume (MCV)Ordered By: Gerardo García on 10-08-2023 MCV (RBC) [Entitic vol] 96.4 fL 81-99 [facility] Erythrocyte sedimentation ra teOrdered By: Gerardo García on 10-08-2023 ESR (Bld) [Velocity] mm/h 0-30 [facility] Hematocrit Auto (Bld) [Volum e fraction]Ordered By: Gerardo García on 10-08-2023 Hematocrit (Bld) [Volume fraction] 38.0 % 37-47 [facility] Laboratory - Chemistry and C hemistry - challengeOrdered By: Gerardo García on 10-08-2023 CO2 [Moles/Vol] 19.0 mmol/L 21.0-32.0 [facility] Urea nitrogen/Creatinine [Mass ratio] 9.3 mg/mg 09-07 [facility] Laboratory - Hematology and Cell countsOrdered By: Gerardo García on 10-08-2023 Erythrocyte distribution width (RBC) [Entitic vol] 52.0 fL 35.1-43.9 [facility] Erythrocyte distribution width (RBC) [Ratio] 14.6 % 11.6-14.6 [facility] Immature granulocytes/100 WBC (Bld) 1.600 % 0.0-0.9 [facility] Comment on above: IG% - Immature Granu locytes (promyelocytes, myelocytes and metamyelocytes) > 1% indicates that a LEFT SHIFT is Present. MCH (RBC) [Entitic mass] 31.7 pg 27.0-32.0 [facility] Nucleated RBC/100 WBC (Bld) [Ratio] 0 % 0-5 [facility] MCHC Auto (RBC) [Mass/Vol]Or dered By: Gerardo García on 10-08-2023 MCHC (RBC) [Mass/Vol] 32.9 g/dL 32-36 [facility] No Panel InformationOrdered By: Gerardo García on 10-08-2023 Estimated GFR (MDRD) Amer 13 mL/min >60 [facility] Comment on above: GFR Calc Estimated GFR (MDRD) Non-Af Amer 11 mL/min >60 [facility] Comment on above: Non- GFR Calc 31.7 pg 27.0-32.0 [facility] 14.6 % 11.6-14.6 [facility] 52.0 fl 35.1-43.9 [facility] 1.600 % 0.0-0.9 [facility] 0 % 0-5 [facility] 11 mL/min >60 [facility] 13 mL/min >60 [facility] 9.3 RATIO 10-20 [facility] 19.0 mmol/L 21.0-32.0 [facility] No growth in 5 days. [facility] Platelets bldOrdered By: Gerardo García on 10-08-2023 Platelets (Bld) [#/Vol] 554 10*3/uL 150-450 [facility] Serum or plasma C reactive p rotein measurement (mass/volume)Ordered By: Gerardo García on 10-08-2023 CRP [Mass/Vol] 312.00 mg/L 0.0-3.0 [facility] Comment on above: C-Reactive Protein ( CRP) provides useful information for thediagnosis, therapy and monitoring of inflammatory processesand associated diseases. For the evaluation of Relative Riskfor Cardiovascular Disease, a High Sensitivity CRP (HSCRP)should be ordered. Serum or plasma calcium yunior urement (mass/volume)Ordered By: Gerardo García on 10-08-2023 Calcium [Mass/Vol] 8.1 mg/dL 8.5-10.1 [facility] Serum or plasma creatinine m easurement (mass/volume)Ordered By: Gerardo García on 10-08-2023 Creatinine [Mass/Vol] 4.41 mg/dL 0.55-1.02 [facility] Comment on above: The validity of the calculated GFR & GFRAA in patients over 70 years has not been determined. Clinical correlation is essential. Serum or plasma urea nitroge n measurement (mass/volume)Ordered By: Gerardo García on 10-08-2023 Urea nitrogen [Mass/Vol] 41 mg/dL 7-18 [facility] Thin prep Papanicolaou smear with manual screeningOrdered By: Gerardo García on 10-08-2023 Thin prep Papanicolaou smear with manual screening 8 5-15 [facility] Absolute lymphocyte countOrd ered By: Gerardo García on 10-05-2023 Lymphocytes Auto (Unsp spec) [#/Vol] 4.77 10*3/uL 0.83-4.51 [facility] Basophil percentageOrdered B y: Gerardo García on 10-05-2023 Basophil percentage 125 mg/dL 74-106 [facility] Basophil percentage 136 mmol/L 136-145 [facility] Basophil percentage 4.4 mmol/L 3.5-5.1 [facility] Basophil percentage 107 mmol/L 98-107 [facility] Basophils (Bld) [#/Vol] 15.4 10*3/uL 4.4-11.0 [facility] Basophils (Bld) [#/Vol] 9.2 10*3/uL 2.0-7.7 [facility] Basophils/100 WBC (Bld) 0.5 % 0-1 [facility] Basophils/100 WBC (Bld) 59.7 % 47-70 [facility] Basophils/100 WBC (Bld) 1.0 % 0-5 [facility] Chloride [Moles/Vol] 107 mmol/L 98-107 [facility] Eosinophils/100 WBC (Bld) 1.0 % 0-5 [facility] Glucose [Mass/Vol] 125 mg/dL 74-106 [facility] Comment on above: Fasting Glucose resu lt from 100 to 125 mg/dL suggests IMPAIRED HOMEOSTASIS per A.D.A. criteria. Neutrophils (Bld) [#/Vol] 9.2 10*3/uL 2.0-7.7 [facility] Neutrophils/100 WBC (Bld) 59.7 % 47-70 [facility] Potassium [Moles/Vol] 4.4 mmol/L 3.5-5.1 [facility] Sodium [Moles/Vol] 136 mmol/L 136-145 [facility] WBC (Bld) [#/Vol] 15.4 10*3/uL 4.4-11.0 [facility] Blood erythrocytes count (nu mber/volume)Ordered By: Gerardo García on 10-05-2023 RBC (Bld) [#/Vol] 4.00 10*6/uL 4.2-5.4 [facility] Blood hemoglobin measurement (mass/volume)Ordered By: Gerardo García on 10-05-2023 Hemoglobin (Bld) [Mass/Vol] 12.6 g/dL 12.0-15.0 [facility] Blood lymphocytes/100 leukoc ytesOrdered By: [facility] 10-[facility] Lymphocytes/100 WBC (Bld) 31.0 % 19-41 [facility] Blood monocytes/100 leukocyt esOrdered By: [facility] on 10-05-2023 Monocytes/100 WBC (Bld) 6.8 % 0-10 [facility] Blood platelet mean volumeOr dered By: Gerardo García on 10-05-2023 Platelet mean volume (Bld) [Entitic vol] 10.0 fL 6.2-12.0 [facility] Determination of erythrocyte mean corpuscular volume (MCV)Ordered By: Gerardo Ricky on 10-05-2023 MCV (RBC) [Entitic vol] 97.0 fL 81-99 [facility] Hematocrit Auto (Bld) [Volum e fraction][facility] Hematocrit (Bld) [Volume fraction] 38.8 % 37-47 [facility] Laboratory - Chemistry and C hemistry - challengeOrdered By: Gerardo García on 10-05-2023 CO2 [Moles/Vol] 22.0 mmol/L 21.0-32.0 [facility] Urea nitrogen/Creatinine [Mass ratio] 9.4 mg/mg 10-20 [facility] Laboratory - Hematology and Cell countsOrdered By: Gerardo Ricky on 10-05-2023 Erythrocyte distribution width (RBC) [Entitic vol] 52.1 fL 35.1-43.9 [facility] Erythrocyte distribution width (RBC) [Ratio] 14.6 % 11.6-14.6 [facility] Immature granulocytes/100 WBC (Bld) 1.000 % 0.0-0.9 [facility] Comment on above: IG% - Immature Granu locytes (promyelocytes, myelocytes and metamyelocytes) > 1% indicates that a LEFT SHIFT is Present. MCH (RBC) [Entitic mass] 31.5 pg 27.0-32.0 [facility] Nucleated RBC/100 WBC (Bld) [Ratio] 0 % 0-5 [facility] MCHC Auto (RBC) [Mass/Vol]Or dered By: Gerardo García on 10-05-2023 MCHC (RBC) [Mass/Vol] 32.5 g/dL 32-36 [facility] No Panel InformationOrdered By: Gerardo García on 10-05-2023 Estimated GFR (MDRD) Amer 18 mL/min >60 [facility] Comment on above: GFR Calc Estimated GFR (MDRD) Non-Af Amer 15 mL/min >60 [facility] Comment on above: Non- GFR Calc 31.5 pg 27.0-32.0 [facility] 14.6 % 11.6-14.6 [facility] 52.1 fl 35.1-43.9 [facility] 1.000 % 0.0-0.9 [facility] 0 % 0-5 [facility] 15 mL/min >60 [facility] 18 mL/min >60 [facility] 9.4 RATIO 10-20 [facility] 22.0 mmol/L 21.0-32.0 [facility] Platelets bldOrdered By: Gerardo García on 10-05-2023 Platelets (Bld) [#/Vol] 564 10*3/uL 150-450 [facility] Serum or plasma calcium yunior urement (mass/volume)Ordered By: Gerardo García on 10-05-2023 Calcium [Mass/Vol] 8.3 mg/dL 8.5-10.1 [facility] Serum or plasma creatinine m easurement (mass/volume)Ordered By: Gerardo García on 10-05-2023 Creatinine [Mass/Vol] 3.19 mg/dL 0.55-1.02 [facility] Comment on above: The validity of the calculated GFR & GFRAA in patients over 70 years has not been determined. Clinical correlation is essential. Serum or plasma urea nitroge n measurement (mass/volume)Ordered By: Gerardo García on 10-05-2023 Urea nitrogen [Mass/Vol] 30 mg/dL 7-18 [facility] Thin prep Papanicolaou smear with manual screeningOrdered By: Gerardo García on 10-05-2023 Thin prep Papanicolaou smear with manual screening 7 5-15 [facility] Absolute lymphocyte countOrd ered By: Kassy Mitchell on 09-25-2023 Lymphocytes Auto (Unsp spec) [#/Vol] 6.81 10*3/uL 0.83-4.51 [facility] Albumin Elph [Mass/Vol]Order ed By: Kassy Mitchell on 09-25-2023 Albumin [Mass/Vol] 2.8 g/dL 2.9-4.4 [facility] Basophil percentageOrdered B y: Kassy Mitchell on 09-25-2023 Basophil percentage 106 mg/dL 74-106 [facility] Basophil percentage 8.3 g/dL 6.4-8.2 [facility] Basophil percentage 0.70 mg/dL 0.20-1.00 [facility] Basophil percentage 134 mmol/L 136-145 [facility] Basophil percentage 4.1 mmol/L 3.5-5.1 [facility] Basophil percentage 103 mmol/L 98-107 [facility] Basophil percentage 223 U/L 84-246 [facility] Basophils (Bld) [#/Vol] 19.2 10*3/uL 4.4-11.0 [facility] Basophils (Bld) [#/Vol] 10.8 10*3/uL 2.0-7.7 [facility] Basophils/100 WBC (Bld) 0.6 % 0-1 [facility] Basophils/100 WBC (Bld) 55.9 % 47-70 [facility] Basophils/100 WBC (Bld) 1.8 % 0-5 [facility] Bilirubin [Mass/Vol] 0.70 mg/dL 0.20-1.00 [facility] Comment on above: For patients on eltr ombopag therapy, use of Dimension [place] TBIL is not recommended. Chloride [Moles/Vol] 103 mmol/L 98-107 [facility] Eosinophils/100 WBC (Bld) 1.8 % 0-5 [facility] Glucose [Mass/Vol] 106 mg/dL 74-106 [facility] Comment on above: Fasting Glucose resu lt from 100 to 125 mg/dL suggests IMPAIRED HOMEOSTASIS per A.D.A. criteria. LDH [Catalytic activity/Vol] 223 U/L 84-246 [facility] Neutrophils (Bld) [#/Vol] 10.8 10*3/uL 2.0-7.7 [facility] Neutrophils/100 WBC (Bld) 55.9 % 47-70 [facility] Potassium [Moles/Vol] 4.1 mmol/L 3.5-5.1 [facility] Protein [Mass/Vol] 8.3 g/dL 6.4-8.2 [facility] Sodium [Moles/Vol] 134 mmol/L 136-145 [facility] WBC (Bld) [#/Vol] 19.2 10*3/uL 4.4-11.0 [facility] Blood erythrocytes count (nu mber/volume)Ordered By: Kassy Mitchell on 09-25-2023 RBC (Bld) [#/Vol] 4.33 10*6/uL 4.2-5.4 [facility] Blood hemoglobin measurement (mass/volume)Ordered By: Kassy Mitchell on 09-25-2023 Hemoglobin (Bld) [Mass/Vol] 13.4 g/dL 12.0-15.0 [facility] Blood lymphocytes/100 leukoc ytesOrdered By: Kassy Mitchell on 09-25-2023 Lymphocytes/100 WBC (Bld) 35.4 % 19-41 [facility] Blood manual differential co mment interpretation (narrative result)Ordered By: Kassy Mitchell on 09-25-2023 Manual differential comment Pollo (Bld) [Interp] COMMENT [facility] Comment on above: LYMPHOCYTOSIS. Blood monocytes/100 leukocyt esOrdered By: Kassy Mitchell on 09-25-2023 Monocytes/100 WBC (Bld) 5.4 % 0-10 [facility] Blood platelet mean volumeOr dered By: Kassy Mitchell on 09-25-2023 Platelet mean volume (Bld) [Entitic vol] 10.1 fL 6.2-12.0 [facility] Determination of erythrocyte mean corpuscular volume (MCV)Ordered By: Kassy Mitchell on 09-25-2023 MCV (RBC) [Entitic vol] 97.5 fL 81-99 [facility] Hematocrit Auto (Bld) [Volum e fraction]Ordered By: Kassy Mitchell on 09-25-2023 Hematocrit (Bld) [Volume fraction] 42.2 % 37-47 [facility] Interpretation of serum or p lasma protein pattern by immunofixation (narrative resultOrdered By: Kassy Mitchell on 09-25-2023 Protein Fractions Immunofixation Pollo [Interp] Not Observed g/dL Not Observed [facility] Laboratory - Chemistry and C hemistry - challengeOrdered By: Kassy Mitchell on 09-25-2023 ALP [Catalytic activity/Vol] 108 U/L 45-117 [facility] ALT [Catalytic activity/Vol] 14 U/L 13-56 [facility] CO2 [Moles/Vol] 23.0 mmol/L 21.0-32.0 [facility] Urea nitrogen/Creatinine [Mass ratio] 7.3 mg/mg 10-20 [facility] Laboratory - Hematology and Cell countsOrdered By: Kassy Mitchell on 09-25-2023 Erythrocyte distribution width (RBC) [Entitic vol] 52.2 fL 35.1-43.9 [facility] Erythrocyte distribution width (RBC) [Ratio] 14.5 % 11.6-14.6 [facility] Immature granulocytes/100 WBC (Bld) 0.900 % 0.0-0.9 [facility] Comment on above: IG% - Immature Granu locytes (promyelocytes, myelocytes and metamyelocytes) > 1% indicates that a LEFT SHIFT is Present. MCH (RBC) [Entitic mass] 30.9 pg 27.0-32.0 [facility] Nucleated RBC/100 WBC (Bld) [Ratio] 0 % 0-5 [facility] MCHC Auto (RBC) [Mass/Vol]Or dered By: Kassy Mitchell on 09-25-2023 MCHC (RBC) [Mass/Vol] 31.8 g/dL 32-36 [facility] No Panel InformationOrdered By: Kassy Mitchell on 09-25-2023 Addendum Document Comment . [facility] Comment on above: Protein electrophore sis scan will follow via computer,mail, or derrick builder delivery. Estimated GFR (MDRD) Amer 22 mL/min >60 [facility] Comment on above: GFR Calc Estimated GFR (MDRD) Non-Af Amer 18 mL/min >60 [facility] Comment on above: Non- GFR Calc Free Lambda Light Chains, Quant 126.2 mg/L 5.7-26.3 [facility] 30.9 pg 27.0-32.0 [facility] 14.5 % 11.6-14.6 [facility] 52.2 fl 35.1-43.9 [facility] 0.900 % 0.0-0.9 [facility] 0 % 0-5 [facility] 18 mL/min >60 [facility] 22 mL/min >60 [facility] 7.3 RATIO 10-20 [facility] 108 U/L 45-117 [facility] 14 U/L 13-56 [facility] 23.0 mmol/L 21.0-32.0 [facility] 126.2 mg/L 5.7-26.3 [facility] Platelets bldOrdered By: Jose Angel Mitchell on 09-25-2023 Platelets (Bld) [#/Vol] 517 10*3/uL 150-450 [facility] Serum [id number] measu rement by electrophoresisOrdered By: Kassy Mitchell on 09-25-2023 Alpha 1 globulin Elph [Mass/Vol] 0.4 g/dL 0.0-0.4 [facility] Alpha 1 globulin Elph [Mass/Vol] 1.2 g/dL 0.4-1.0 [facility] Serum globulin measurement ( mass/volume)Ordered By: Kassy Mitchell on 09-25-2023 Globulin (S) [Mass/Vol] 4.9 g/dL 2.2-3.9 [facility] Serum immunoglobulin kappa l ight chains/immunoglobulin lambda light chains mass ratioOrdered By: Kassy Mitchell on 09-25-2023 Immunoglobulin light chains.kappa/Immunoglobu rustam light chains.lambda (S) [Mass ratio] 1.58 0.26-1.65 [facility] Comment on above: Performed at: [address] [id number] Director: Gaudencio Alexandre PhD, Phone: [phone] Serum or plasma IgA measurem ent (mass/volume)Ordered By: Kassy Mitchell on 09-25-2023 IgA [Mass/Vol] 1271 mg/dL 64-422 [facility] Comment on above: Results confirmed on dilution. Serum or plasma IgG measurem ent (mass/volume)Ordered By: Kassy Mitchell on 09-25-2023 IgG [Mass/Vol] 1892 mg/dL 586-1602 [facility] Serum or plasma IgM measurem ent (mass/volume)Ordered By: Kassy Mitchell on 09-25-2023 IgM [Mass/Vol] 53 mg/dL 26-217 [facility] Serum or plasma albumin yunior urement (mass/volume)Ordered By: Kassy Mitchell on 09-25-2023 Albumin [Mass/Vol] 2.3 g/dL 3.2-5.0 [facility] Serum or plasma albumin/glob ulin mass ratioOrdered By: [facility] Albumin/Globulin [Mass ratio] 0.4 {ratio} 0.9-2.4 [facility] Serum or plasma beta globuli n measurement by electrophoresis (mass/volume)Ordered By: Kassy Mitchell on 09-25-2023 Beta globulin Elph [Mass/Vol] 1.4 g/dL 0.7-1.3 [facility] Serum or plasma calcium yunior urement (mass/volume)Ordered By: Kassy Mitchell on 09-25-2023 Calcium [Mass/Vol] 8.1 mg/dL 8.5-10.1 [facility] Serum or plasma creatinine m easurement (mass/volume)Ordered By: Kassy Mitchell on 09-25-2023 Creatinine [Mass/Vol] 2.75 mg/dL 0.55-1.02 [facility] Comment on above: The validity of the calculated GFR & GFRAA in patients over 70 years has not been determined. Clinical correlation is essential. Serum or plasma gamma globul in measurement by electrophoresis (mass/volume)Ordered By: Kassy Mitchell on 09-25-2023 Gamma globulin Elph [Mass/Vol] 2.0 g/dL 0.4-1.8 [facility] Serum or plasma immunoelectr ophoresis interpretation (nominal result)Ordered By: Kassy Mitchell on 09-25-2023 Interpretation IEP [Interp] Comment . [facility] Comment on above: No monoclonality det ected. Serum or plasma immunoglobul in kappa light chains measurement (mass/volume)Ordered By: Kassy Mitchell on 09-25-2023 Immunoglobulin light chains.kappa [Mass/Vol] 199.9 mg/L 3.3-19.4 [facility] Serum or plasma urea nitroge n measurement (mass/volume)Ordered By: Kassy Mitchell on 09-25-2023 Urea nitrogen [Mass/Vol] 20 mg/dL 7-18 [facility] Thin prep Papanicolaou smear with manual screeningOrdered By: [facility] on 09-25-2023 Thin prep Papanicolaou smear with manual screening 17 U/L 15-37 [facility] Thin prep Papanicolaou smear with manual screening 8 5-15 [facility] Thin prep Papanicolaou smear with manual screening 0.6 0.7-1.7 [facility] Total protein bloodOrdered B y: Kassy Mitchell on 09-25-2023 Protein [Mass/Vol] 7.7 g/dL 6.0-8.5 [facility] Absolute lymphocyte countOrd ered By: Alivia Mcrae on 09-22-2023 Lymphocytes Auto (Unsp spec) [#/Vol] 5.10 10*3/uL 0.83-4.51 [facility] Basophil percentageOrdered B y: Alivia Mcrae on 09-22-2023 Basophil percentage 88 mg/dL 74-106 [facility] Basophil percentage 142 mmol/L 136-145 [facility] Basophil percentage 3.3 mmol/L 3.5-5.1 [facility] Basophil percentage 110 mmol/L 98-107 [facility] Basophils (Bld) [#/Vol] 12.6 10*3/uL 4.4-11.0 [facility] Basophils (Bld) [#/Vol] 6.2 10*3/uL 2.0-7.7 [facility] Basophils/100 WBC (Bld) 0.5 % 0-1 [facility] Basophils/100 WBC (Bld) 48.9 % 47-70 [facility] Basophils/100 WBC (Bld) 2.0 % 0-5 [facility] Chloride [Moles/Vol] 110 mmol/L 98-107 [facility] Eosinophils/100 WBC (Bld) 2.0 % 0-5 [facility] Glucose [Mass/Vol] 88 mg/dL 74-106 [facility] Neutrophils (Bld) [#/Vol] 6.2 10*3/uL 2.0-7.7 [facility] Neutrophils/100 WBC (Bld) 48.9 % 47-70 [facility] Potassium [Moles/Vol] 3.3 mmol/L 3.5-5.1 [facility] Sodium [Moles/Vol] 142 mmol/L 136-145 [facility] WBC (Bld) [#/Vol] 12.6 10*3/uL 4.4-11.0 [facility] Blood erythrocytes count (nu mber/volume)Ordered By: Alivia Mrcae on 09-22-2023 RBC (Bld) [#/Vol] 3.85 10*6/uL 4.2-5.4 [facility] Blood hemoglobin measurement (mass/volume)Ordered By: Alivia Mcrae on 09-22-2023 Hemoglobin (Bld) [Mass/Vol] 12.1 g/dL 12.0-15.0 [facility] Blood lymphocytes/100 leukoc ytesOrdered By: Alivia Mcrae on 09-22-2023 Lymphocytes/100 WBC (Bld) 40.4 % 19-41 [facility] Blood manual differential co mment interpretation (narrative result)Ordered By: Alivia Mcrae on 09-22-2023 Manual differential comment Pollo (Bld) [Interp] SCANNED [facility] Blood monocytes/100 leukocyt esOrdered By: Alivia cMrae on 09-22-2023 Monocytes/100 WBC (Bld) 7.5 % 0-10 [facility] Blood platelet mean volumeOr dered By: Alivia Mcrae on 09-22-2023 Platelet mean volume (Bld) [Entitic vol] 10.6 fL 6.2-12.0 [facility] Determination of erythrocyte mean corpuscular volume (MCV)Ordered By: Alivia Mcrae on 09-22-2023 MCV (RBC) [Entitic vol] 97.9 fL 81-99 [facility] Hematocrit Auto (Bld) [Volum e fraction]Ordered By: Alivia Mcrae on 09-22-2023 Hematocrit (Bld) [Volume fraction] 37.7 % 37-47 [facility] Laboratory - Chemistry and C hemistry - challengeOrdered By: Alivia Mcrae on 09-22-2023 CO2 [Moles/Vol] 23.0 mmol/L 21.0-32.0 [facility] Urea nitrogen/Creatinine [Mass ratio] 8.3 mg/mg 10-20 [facility] Laboratory - Hematology and Cell countsOrdered By: Alivia Mcrae on 09-22-2023 Erythrocyte distribution width (RBC) [Entitic vol] 52.6 fL 35.1-43.9 [facility] Erythrocyte distribution width (RBC) [Ratio] 14.6 % 11.6-14.6 [facility] Immature granulocytes/100 WBC (Bld) 0.700 % 0.0-0.9 [facility] Comment on above: IG% - Immature Granu locytes (promyelocytes, myelocytes and metamyelocytes) > 1% indicates that a LEFT SHIFT is Present. MCH (RBC) [Entitic mass] 31.4 pg 27.0-32.0 [facility] Nucleated RBC/100 WBC (Bld) [Ratio] 0 % 0-5 [facility] MCHC Auto (RBC) [Mass/Vol]Or dered By: Alivia Mcrae on 09-22-2023 MCHC (RBC) [Mass/Vol] 32.1 g/dL 32-36 [facility] No Panel InformationOrdered By: Alivia Mcrae on 09-22-2023 Estimated Creatinine Clearance Calc 25.39 ml/min [facility] Estimated GFR (MDRD) Amer 31 mL/min >60 [facility] Comment on above: GFR Calc Estimated GFR (MDRD) Non-Af Amer 25 mL/min >60 [facility] Comment on above: Non- GFR Calc 31.4 pg 27.0-32.0 [facility] 14.6 % 11.6-14.6 [facility] 52.6 fl 35.1-43.9 [facility] 0.700 % 0.0-0.9 [facility] 0 % 0-5 [facility] 25 mL/min >60 [facility] 31 mL/min >60 [facility] 25.39 ml/min [facility] 8.3 RATIO 10-20 [facility] 23.0 mmol/L 21.0-32.0 [facility] Platelets bldOrdered By: Mariya Mcrae on 09-22-2023 Platelets (Bld) [#/Vol] 364 10*3/uL 150-450 [facility] Serum or plasma calcium yunior urement (mass/volume)Ordered By: Alivia Mcrae on 09-22-2023 Calcium [Mass/Vol] 8.1 mg/dL 8.5-10.1 [facility] Serum or plasma creatinine m easurement (mass/volume)Ordered By: Alivia Mcrae on 09-22-2023 Creatinine [Mass/Vol] 2.05 mg/dL 0.55-1.02 [facility] Comment on above: The validity of the calculated GFR & GFRAA in patients over 70 years has not been determined. Clinical correlation is essential. Serum or plasma urea nitroge n measurement (mass/volume)Ordered By: Alivia Mcrae on 09-22-2023 Urea nitrogen [Mass/Vol] 17 mg/dL 7-18 [facility] Thin prep Papanicolaou smear with manual screeningOrdered By: Alivia Mcrae on 09-22-2023 Thin prep Papanicolaou smear with manual screening 9 5-15 [facility] Basophil percentageOrdered B y: Andres Fraser on 09-20-2023 Basophil percentage 3.9 mg/dL 2.5-4.9 [facility] Absolute lymphocyte countOrd ered By: Altaf Villa on 09-19-2023 Lymphocytes Auto (Unsp spec) [#/Vol] 6.02 10*3/uL 0.83-4.51 [facility] Bacteria identified Cx Nom ( U)Ordered By: Altafclaudia Villa on 09-19-2023 Culture, urine Klebsiella pneumonia e sp pneum [facility] Basophil percentageOrdered B y: Altaf Villa on 09-19-2023 Basophil percentage >100 SEEN /hpf 0-5 [facility] Comment on above: Microscopic field is filled. Other elements may be obscured. Basophils/100 WBC (Bld) 0.4 % 0-1 [facility] Chloride [Moles/Vol] 104 mmol/L 98-107 [facility] Eosinophils/100 WBC (Bld) 0.3 % 0-5 [facility] Glucose [Mass/Vol] 98 mg/dL 74-106 [facility] Neutrophils (Bld) [#/Vol] 13.4 10*3/uL 2.0-7.7 [facility] Neutrophils/100 WBC (Bld) 64.2 % 47-70 [facility] Potassium [Moles/Vol] 4.1 mmol/L 3.5-5.1 [facility] Sodium [Moles/Vol] 134 mmol/L 136-145 [facility] WBC (Bld) [#/Vol] 20.8 10*3/uL 4.4-11.0 [facility] Bilirubin Test strip Ql (U)O rdered By: Altaf Villa on 09-19-2023 Bilirubin Ql (U) Negative Negative [facility] Blood erythrocytes count (nu mber/volume)Ordered By: Altaf Villa on 09-19-2023 RBC (Bld) [#/Vol] 4.54 10*6/uL 4.2-5.4 [facility] Blood hemoglobin measurement (mass/volume)Ordered By: Altafclaudia Villa on 09-19-2023 Hemoglobin (Bld) [Mass/Vol] 14.3 g/dL 12.0-15.0 [facility] Blood lymphocytes/100 leukoc ytesOrdered By: Altafclaudia Villa on 09-19-2023 Lymphocytes/100 WBC (Bld) 28.9 % 19-41 [facility] Blood manual differential co mment interpretation (narrative result)Ordered By: Altafclaudia Villa on 11-01-2023 Manual differential comment Pollo (Bld) [Interp] SCANNED [facility] Blood monocytes/100 leukocyt esOrdered By: Altaf Villa on 09-19-2023 Monocytes/100 WBC (Bld) 5.5 % 0-10 [facility] Blood platelet mean volumeOr dered By: Altaf Villa on 09-19-2023 Platelet mean volume (Bld) [Entitic vol] 10.2 fL 6.2-12.0 [facility] Clostridium difficile detect ion by polymerase chain reactionOrdered By: Altaf Villa on 09-19-2023 C. difficile DNA BOBBI+probe Ql (Unsp spec) [facility] C. difficile DNA BOBBI+probe Ql (Unsp spec) [facility] Culture, urineOrdered By: Eric Villa on 09-19-2023 Bacteria identified Cx Nom (U) Klebsiella pneumoniae sp pneum [facility] Bacteria identified Cx Nom (U) Klebsiella pneumoniae sp pneum [facility] Determination of erythrocyte mean corpuscular volume (MCV)Ordered By: Altaf Villa on 09-19-2023 MCV (RBC) [Entitic vol] 96.3 fL 81-99 [facility] Hematocrit Auto (Bld) [Volum e fraction]Ordered By: Altaf Villa on 09-19-2023 Hematocrit (Bld) [Volume fraction] 43.7 % 37-47 [facility] Ketones Test strip Ql (U)Ord ered By: Altaf Villa on 09-19-2023 Ketones Ql (U) Negative Negative [facility] Laboratory - Chemistry and C hemistry - challengeOrdered By: Altaf Villa on 09-19-2023 CO2 [Moles/Vol] 20.0 mmol/L 21.0-32.0 [facility] Urea nitrogen/Creatinine [Mass ratio] 8.0 mg/mg 10-20 [facility] Laboratory - Hematology and Cell countsOrdered By: Altaf Villa on 09-19-2023 Erythrocyte distribution width (RBC) [Entitic vol] 51.6 fL 35.1-43.9 [facility] Erythrocyte distribution width (RBC) [Ratio] 14.6 % 11.6-14.6 [facility] Immature granulocytes/100 WBC (Bld) 0.700 % 0.0-0.9 [facility] Comment on above: IG% - Immature Granu locytes (promyelocytes, myelocytes and metamyelocytes) > 1% indicates that a LEFT SHIFT is Present. MCH (RBC) [Entitic mass] 31.5 pg 27.0-32.0 [facility] Nucleated RBC/100 WBC (Bld) [Ratio] 0 % 0-5 [facility] Laboratory - Microbiology an d Antimicrobial susceptibilityOrdered By: Andres Fraser on 09-19-2023 Bacteria identified Cx Nom (Bld) No growth in 5 days. [facility] MCHC Auto (RBC) [Mass/Vol]Or dered By: Altaf Villa on 09-19-2023 MCHC (RBC) [Mass/Vol] 32.7 g/dL 32-36 [facility] Mucus LM Ql (Urine sed)Order ed By: Altaf Villa on 09-19-2023 Mucus Ql (Urine sed) 0 SEEN /hpf [facility] Nitrite Test strip Ql (U)Ord ered By: Altaf Villa on 09-19-2023 Nitrite Ql (U) Positive Negative [facility] No Panel InformationOrdered By: Andres Fraser on 09-19-2023 No growth in 5 days. [facility] No Panel InformationOrdered By: Altaf Villa on 09-19-2023 Estimated Creatinine Clearance Calc 18.07 ml/min [facility] Estimated GFR (MDRD) Amer 21 mL/min >60 [facility] Comment on above: GFR Calc Estimated GFR (MDRD) Non-Af Amer 17 mL/min >60 [facility] Comment on above: Non- GFR Calc Platelets bldOrdered By: Altaf Villa on 09-19-2023 Platelets (Bld) [#/Vol] 442 10*3/uL 150-450 [facility] Protein Test strip Ql (U)Ord ered By: Altaf Villa on 09-19-2023 Protein Ql (U) 100 mg/dl Negative [facility] Serum or plasma calcium yunior urement (mass/volume)Ordered By: Altaf Villa on 09-19-2023 Calcium [Mass/Vol] 8.4 mg/dL 8.5-10.1 [facility] Serum or plasma creatinine m easurement (mass/volume)Ordered By: Altaf Villa on 09-19-2023 Creatinine [Mass/Vol] 2.88 mg/dL 0.55-1.02 [facility] Comment on above: The validity of the calculated GFR & GFRAA in patients over 70 years has not been determined. Clinical correlation is essential. Serum or plasma urea nitroge n measurement (mass/volume)Ordered By: Altaf Villa on 09-19-2023 Urea nitrogen [Mass/Vol] 23 mg/dL 7-18 [facility] Squamous epithelial cells de tection in urine sediment by light microscopyOrdered By: Altaf Villa on 09-19-2023 Epithelial cells.squamous LM Ql (Urine sed) 0 SEEN /hpf 5-10 [facility] Thin prep Papanicolaou smear with manual screeningOrdered By: Altaf Villa on 09-19-2023 Thin prep Papanicolaou smear with manual screening 10 5-15 [facility] Urine blood detectionOrdered By: Altaf Villa on 09-19-2023 RBC Ql (U) 150 /ul Negative [facility] RBC Ql (U) 0 SEEN /hpf 0-5 [facility] Urine clarityOrdered By: Altaf Villa on 09-19-2023 Clarity (U) Cloudy Clear [facility] Urine color determinationOrd ered By: Altaf Villa on 09-19-2023 Color (U) Yellow Yellow [facility] Urine glucose detectionOrder ed By: Altaf Villa on 09-19-2023 Glucose Ql (U) Normal mg/dl Normal [facility] Urine leukocyte esterase det ection by dipstickOrdered By: Altaf Villa on 09-19-2023 Leukocyte esterase Test strip Ql (U) 500 /ul Negative [facility] Urine pHOrdered By: Altaf avalos on 09-19-2023 pH (U) 6.0 [pH] 5.0 - 8.0 [facility] Urine sediment bacteria coun t by microscopy (number/high power field)Ordered By: Altaf Villa on 09-19-2023 Bacteria LM.HPF (Urine sed) [#/Area] 0 /[HPF] None Seen [facility] Urine specific gravity measu rementOrdered By: Altaf Villa on 09-19-2023 Specific gravity (U) [Rel density] 1.015 1.002-1.03 0 [facility] Urobilinogen Auto test strip Ql (U)Ordered By: Altaf Villa on 09-19-2023 Urobilinogen Ql (U) Normal mg/dl Normal [facility] Gram stain for investigation of transfusion reactionOrdered By: Gerardo García on 08-17-2023 Microscopic observation Gram stain Nom (Unsp spec) [facility] Microscopic observation Gram stain Nom (Unsp spec) [facility] No Panel InformationOrdered By: Gerardo García on 08-17-2023 Miscellaneous Culture No growth aerobically. [facility] No growth aerobically. [facility] Miscellaneous Culture No growth aerobically. [facility] Absolute lymphocyte countOrd ered By: Angela Sorto on 08-14-2023 Lymphocytes Auto (Unsp spec) [#/Vol] 6.82 10*3/uL 0.83-4.51 [facility] Basophil percentageOrdered B y: Angela Sorto on 08-14-2023 Basophil percentage 82 mg/dL 74-106 [facility] Basophil percentage 7.2 g/dL 6.4-8.2 [facility] Basophil percentage 0.50 mg/dL 0.20-1.00 [facility] Basophil percentage 157 mg/dL <200 [facility] Basophil percentage 148 mg/dL <199 [facility] Basophil percentage 142 mmol/L 136-145 [facility] Basophil percentage 3.5 mmol/L 3.5-5.1 [facility] Basophil percentage 109 mmol/L 98-107 [facility] Basophils (Bld) [#/Vol] 12.0 10*3/uL 4.4-11.0 [facility] Basophils (Bld) [#/Vol] 4.1 10*3/uL 2.0-7.7 [facility] Basophils/100 WBC (Bld) 0.6 % 0-1 [facility] Basophils/100 WBC (Bld) 33.7 % 47-70 [facility] Basophils/100 WBC (Bld) 3.0 % 0-5 [facility] Bilirubin [Mass/Vol] 0.50 mg/dL 0.20-1.00 [facility] Comment on above: For patients on eltr ombopag therapy, use of Dimension [place] TBIL is not recommended. Chloride [Moles/Vol] 109 mmol/L 98-107 [facility] Cholesterol [Mass/Vol] 157 mg/dL <200 [facility] Comment on above: <200 mg/dL Desirable 200-240 mg/dL Borderline >240 mg/dL High Risk Eosinophils/100 WBC (Bld) 3.0 % 0-5 [facility] Glucose [Mass/Vol] 82 mg/dL 74-106 [facility] Neutrophils (Bld) [#/Vol] 4.1 10*3/uL 2.0-7.7 [facility] Neutrophils/100 WBC (Bld) 33.7 % 47-70 [facility] Potassium [Moles/Vol] 3.5 mmol/L 3.5-5.1 [facility] Protein [Mass/Vol] 7.2 g/dL 6.4-8.2 [facility] Sodium [Moles/Vol] 142 mmol/L 136-145 [facility] Triglyceride [Mass/Vol] 148 mg/dL <199 [facility] Comment on above: The drugs N-Acetylcy steine and Metamizole may falsely depress this assay.Serum Triglycerides Reference Interval Normal <150 mg/dL Borderline high 150 - 199 mg/dL High 200 - 499 mg/dL Very High > or = 500 mg/dL WBC (Bld) [#/Vol] 12.0 10*3/uL 4.4-11.0 [facility] Blood erythrocytes count (nu mber/volume)Ordered By: Angela Sorto on 08-14-2023 RBC (Bld) [#/Vol] 3.76 10*6/uL 4.2-5.4 [facility] Blood hemoglobin measurement (mass/volume)Ordered By: Angela Sorto on 08-14-2023 Hemoglobin (Bld) [Mass/Vol] 12.2 g/dL 12.0-15.0 [facility] Blood lymphocytes/100 leukoc ytesOrdered By: Angela Sorto on 08-14-2023 Lymphocytes/100 WBC (Bld) 56.5 % 19-41 [facility] Blood manual differential co mment interpretation (narrative result)Ordered By: Angela Sorto on 08-14-2023 Manual differential comment Pollo (Bld) [Interp] SCANNED [facility] Comment on above: LYMPHOCYTOSIS NOTED Blood monocytes/100 leukocyt esOrdered By: Angela Sorto on 08-14-2023 Monocytes/100 WBC (Bld) 5.5 % 0-10 [facility] Blood platelet mean volumeOr dered By: Angela Sorto on 08-14-2023 Platelet mean volume (Bld) [Entitic vol] 10.4 fL 6.2-12.0 [facility] Determination of erythrocyte mean corpuscular volume (MCV)Ordered By: Angela Sorto on 08-14-2023 MCV (RBC) [Entitic vol] 100.0 fL 81-99 [facility] Hematocrit Auto (Bld) [Volum e fraction]Ordered By: Angela Sorto on 08-14-2023 Hematocrit (Bld) [Volume fraction] 37.6 % 37-47 [facility] Laboratory - Chemistry and C hemistry - challengeOrdered By: Angela Sorto on 08-14-2023 ALP [Catalytic activity/Vol] 74 U/L 45-117 [facility] ALT [Catalytic activity/Vol] 12 U/L 13-56 [facility] CO2 [Moles/Vol] 26.0 mmol/L 21.0-32.0 [facility] Globulin (S) [Mass/Vol] 5.0 g/dL 2.2-4.2 [facility] Urea nitrogen/Creatinine [Mass ratio] 5.4 mg/mg 10-20 [facility] Laboratory - Hematology and Cell countsOrdered By: Angela Sorto on 08-14-2023 Erythrocyte distribution width (RBC) [Entitic vol] 55.0 fL 35.1-43.9 [facility] Erythrocyte distribution width (RBC) [Ratio] 15.0 % 11.6-14.6 [facility] Immature granulocytes/100 WBC (Bld) 0.700 % 0.0-0.9 [facility] Comment on above: IG% - Immature Granu locytes (promyelocytes, myelocytes and metamyelocytes) > 1% indicates that a LEFT SHIFT is Present. MCH (RBC) [Entitic mass] 32.4 pg 27.0-32.0 [facility] Nucleated RBC/100 WBC (Bld) [Ratio] 0.2 % 0-5 [facility] Auto (RBC) [Mass/Vol]Or dered By: Angela Sorto on 08-14-2023 MCHC (RBC) [Mass/Vol] 32.4 g/dL 32-36 [facility] No Panel InformationOrdered By: Angela Sorto on 08-14-2023 Estimated GFR (MDRD) Amer 39 mL/min >60 [facility] Comment on above: GFR Calc Estimated GFR (MDRD) Non-Af Amer 32 mL/min >60 [facility] Comment on above: Non- GFR Calc Thyroid Stimulating Hormone (TSH) 3.85 uIU/mL 0.358-3.74 [facility] 32.4 pg 27.0-32.0 [facility] 15.0 % 11.6-14.6 [facility] 55.0 fl 35.1-43.9 [facility] 0.700 % 0.0-0.9 [facility] 0.2 % 0-5 [facility] 32 mL/min >60 [facility] 39 mL/min >60 [facility] 5.4 RATIO 10-20 [facility] 5.0 g/dL 2.2-4.2 [facility] 74 U/L 45-117 [facility] 12 U/L 13-56 [facility] 26.0 mmol/L 21.0-32.0 [facility] 3.85 uIU/mL 0.358-3.74 [facility] Platelets bldOrdered By: Jessica Sorto on 08-14-2023 Platelets (Bld) [#/Vol] 373 10*3/uL 150-450 [facility] Serum or plasma albumin yunior urement (mass/volume)Ordered By: Angela Sorto on 08-14-2023 Albumin [Mass/Vol] 2.2 g/dL 3.2-5.0 [facility] Serum or plasma albumin/glob ulin mass ratioOrdered By: Angela Sorto on 08-14-2023 Albumin/Globulin [Mass ratio] 0.4 {ratio} 0.9-2.4 [facility] Serum or plasma calcium yunior urement (mass/volume)Ordered By: Angela Sorto on 08-14-2023 Calcium [Mass/Vol] 7.9 mg/dL 8.5-10.1 [facility] Serum or plasma cholesterol in HDL measurement (mass/volume)Ordered By: Angela Sorto on 08-14-2023 Cholesterol in HDL [Mass/Vol] 36 mg/dL >40 [facility] Comment on above: The drugs N-Acetylcy steine and Metamizole may falsely depress this assay. Reference Range HDL <40 mg/dL Low HDL Cholesterol HDL >or= 60 mg/dL High HDL Cholesterol Serum or plasma cholesterol in VLDL measurement (mass/volume)Ordered By: Angela Sorto on 08-14-2023 Cholesterol in VLDL [Mass/Vol] 30 mg/dL 5-40 [facility] Serum or plasma creatinine m easurement (mass/volume)Ordered By: Angela Sorto on 08-14-2023 Creatinine [Mass/Vol] 1.66 mg/dL 0.55-1.02 [facility] Comment on above: The validity of the calculated GFR & GFRAA in patients over 70 years has not been determined. Clinical correlation is essential. Serum or plasma low density lipoprotein (LDL) cholesterol measurement (mass/volume)Ordered By: Angela Sorto on 08-14-2023 Cholesterol in LDL [Mass/Vol] 91 mg/dL 0-130 [facility] Serum or plasma urea nitroge n measurement (mass/volume)Ordered By: Angela Sorto on 08-14-2023 Urea nitrogen [Mass/Vol] 9 mg/dL 7-18 [facility] Thin prep Papanicolaou smear with manual screeningOrdered By: Angela Sorto on 08-14-2023 Thin prep Papanicolaou smear with manual screening 11 U/L 15-37 [facility] Thin prep Papanicolaou smear with manual screening 7 5-15 [facility] No Panel InformationOrdered By: Luz Maria Matthews on 08-10-2023 Parathyroid Hormone (Intact) 90.9 pg/mL 18.4-80.1 [facility] 90.9 pg/mL 18.4-80.1 [facility] No Panel InformationOrdered By: Angela Sorto on 08-10-2023 Vitamin D 25-Hydroxy 66.9 ng/mL [facility] Comment on above: Vitamin D 25(OH) Sta tus Range Deficiency <20 ng/mL (50nmol/L) Insufficiency 20 - 30 ng/mL (50 - 75 nmol/L) Sufficiency 30 - 100 ng/mL (75 - 250 nmol/L) Toxicity >100 ng/mL (>250 nmol/L) 66.9 ng/mL [facility] Absolute lymphocyte countOrd ered By: John Light on 08-07-2023 Lymphocytes Auto (Unsp spec) [#/Vol] 4.81 10*3/uL 0.83-4.51 [facility] Basophil percentageOrdered B y: John Light on 08-07-2023 Basophil percentage 96 mg/dL 74-106 [facility] Basophil percentage 141 mmol/L 136-145 [facility] Basophil percentage 3.3 mmol/L 3.5-5.1 [facility] Basophil percentage 114 mmol/L 98-107 [facility] Basophils (Bld) [#/Vol] 10.0 10*3/uL 4.4-11.0 [facility] Basophils (Bld) [#/Vol] 4.3 10*3/uL 2.0-7.7 [facility] Basophils/100 WBC (Bld) 0.6 % 0-1 [facility] Basophils/100 WBC (Bld) 43.0 % 47-70 [facility] Basophils/100 WBC (Bld) 2.0 % 0-5 [facility] Chloride [Moles/Vol] 114 mmol/L 98-107 [facility] Eosinophils/100 WBC (Bld) 2.0 % 0-5 [facility] Glucose [Mass/Vol] 96 mg/dL 74-106 [facility] Neutrophils (Bld) [#/Vol] 4.3 10*3/uL 2.0-7.7 [facility] Neutrophils/100 WBC (Bld) 43.0 % 47-70 [facility] Potassium [Moles/Vol] 3.3 mmol/L 3.5-5.1 [facility] Sodium [Moles/Vol] 141 mmol/L 136-145 [facility] WBC (Bld) [#/Vol] 10.0 10*3/uL 4.4-11.0 [facility] Blood erythrocytes count (nu mber/volume)Ordered By: John Light on 08-07-2023 RBC (Bld) [#/Vol] 3.68 10*6/uL 4.2-5.4 [facility] Blood hemoglobin measurement (mass/volume)Ordered By: John Light on 08-07-2023 Hemoglobin (Bld) [Mass/Vol] 11.7 g/dL 12.0-15.0 [facility] Blood lymphocytes/100 leukoc ytesOrdered By: John Light on 08-07-2023 Lymphocytes/100 WBC (Bld) 48.0 % 19-41 [facility] Blood monocytes/100 leukocyt esOrdered By: John Light on 08-07-2023 Monocytes/100 WBC (Bld) 5.9 % 0-10 [facility] Blood platelet mean volumeOr dered By: John Light on 08-07-2023 Platelet mean volume (Bld) [Entitic vol] 10.0 fL 6.2-12.0 [facility] Determination of erythrocyte mean corpuscular volume (MCV)Ordered By: John Light on 08-07-2023 MCV (RBC) [Entitic vol] 98.9 fL 81-99 [facility] Hematocrit Auto (Bld) [Volum e fraction]Ordered By: John Light on 08-07-2023 Hematocrit (Bld) [Volume fraction] 36.4 % 37-47 [facility] Laboratory - Chemistry and C hemistry - challengeOrdered By: John Light on 08-07-2023 CO2 [Moles/Vol] 20.0 mmol/L 21.0-32.0 [facility] Urea nitrogen/Creatinine [Mass ratio] 8.5 mg/mg 10-20 [facility] Laboratory - Hematology and Cell countsOrdered By: John Light on 08-07-2023 Erythrocyte distribution width (RBC) [Entitic vol] 53.8 fL 35.1-43.9 [facility] Erythrocyte distribution width (RBC) [Ratio] 14.6 % 11.6-14.6 [facility] Immature granulocytes/100 WBC (Bld) 0.500 % 0.0-0.9 [facility] Comment on above: IG% - Immature Granu locytes (promyelocytes, myelocytes and metamyelocytes) > 1% indicates that a LEFT SHIFT is Present. MCH (RBC) [Entitic mass] 31.8 pg 27.0-32.0 [facility] Nucleated RBC/100 WBC (Bld) [Ratio] 0 % 0-5 [facility] MCHC Auto (RBC) [Mass/Vol]Or dered By: John Light on 08-07-2023 MCHC (RBC) [Mass/Vol] 32.1 g/dL 32-36 [facility] No Panel InformationOrdered By: John Light on 08-07-2023 Estimated Creatinine Clearance Calc 25.03 ml/min [facility] Estimated GFR (MDRD) Amer 30 mL/min >60 [facility] Comment on above: GFR Calc Estimated GFR (MDRD) Non-Af Amer 25 mL/min >60 [facility] Comment on above: Non- GFR Calc 31.8 pg 27.0-32.0 [facility] 14.6 % 11.6-14.6 [facility] 53.8 fl 35.1-43.9 [facility] 0.500 % 0.0-0.9 [facility] 0 % 0-5 [facility] 25 mL/min >60 [facility] 30 mL/min >60 [facility] 25.03 ml/min [facility] 8.5 RATIO 10-20 [facility] 20.0 mmol/L 21.0-32.0 [facility] Platelets bldOrdered By: Rabia Light on 08-07-2023 Platelets (Bld) [#/Vol] 271 10*3/uL 150-450 [facility] Serum or plasma calcium yunior urement (mass/volume)Ordered By: John Light on 08-07-2023 Calcium [Mass/Vol] 7.5 mg/dL 8.5-10.1 [facility] Serum or plasma creatinine m easurement (mass/volume)Ordered By: John Light on 08-07-2023 Creatinine [Mass/Vol] 2.11 mg/dL 0.55-1.02 [facility] Comment on above: The validity of the calculated GFR & GFRAA in patients over 70 years has not been determined. Clinical correlation is essential. Serum or plasma urea nitroge n measurement (mass/volume)Ordered By: John Light on 08-07-2023 Urea nitrogen [Mass/Vol] 18 mg/dL - [facility] Thin prep Papanicolaou smear with manual screeningOrdered By: John Light on 08-07-2023 Thin prep Papanicolaou smear with manual screening 7 - [facility] Basophil percentageOrdered B y: Holly Echeverria on 08-03-2023 Basophil percentage 6.4 g/dL 6.4-8.2 [facility] Basophil percentage 1.00 mg/dL 0.20-1.00 [facility] Bilirubin [Mass/Vol] 1.00 mg/dL 0.20-1.00 [facility] Comment on above: For patients on eltr ombopag therapy, use of Dimension [place] TBIL is not recommended. Protein [Mass/Vol] 6.4 g/dL 6.4-8.2 [facility] Laboratory - Chemistry and C hemistry - challengeOrdered By: Holly Echeverria on 08-03-2023 ALP [Catalytic activity/Vol] 90 U/L [facility] ALT [Catalytic activity/Vol] 10 U/L [facility] Globulin (S) [Mass/Vol] 4.3 g/dL 2.2-4.2 [facility] No Panel InformationOrdered By: Holly Echeverria on 08-03-2023 4.3 g/dL 2.2-4.2 [facility] 90 U/L [facility] 10 U/L [facility] Serum or plasma albumin yunior urement (mass/volume)Ordered By: Holly Echeverria on 08-03-2023 Albumin [Mass/Vol] 2.1 g/dL 3.2-5.0 [facility] Serum or plasma albumin/glob ulin mass ratioOrdered By: Holly Echeverria on 08-03-2023 Albumin/Globulin [Mass ratio] 0.5 {ratio} 0.9-2.4 [facility] Thin prep Papanicolaou smear with manual screeningOrdered By: Holly Echeverria on 08-03-2023 Thin prep Papanicolaou smear with manual screening 13 U/L 15-37 [facility] Bacteria identified Cx Nom ( U)Ordered By: Brian Mckee on 08-02-2023 Culture, urine Pseudomonas aeruginosa [facility] Basophil percentageOrdered B y: Brian Mckee on 08-02-2023 Basophil percentage 1.6 mmol/L 0.4-2.0 [facility] Lactate [Moles/Vol] 1.6 mmol/L 0.4-2.0 [facility] Basophil percentage >100 SEEN /hpf 0-5 [facility] Comment on above: Microscopic field is filled. Other elements may be obscured. Bilirubin Test strip Ql (U)O rdered By: Brian Mckee on 08-02-2023 Bilirubin Ql (U) Negative Negative [facility] Blood manual differential co mment interpretation (narrative result)Ordered By: Brian Mckee on 08-02-2023 Manual differential comment Pollo (Bld) [Interp] SCANNED [facility] COVID-19 virus antigen assay Ordered By: Brian Mckee on 08-02-2023 SARS-CoV-2 (COVID-19) Ag IA.rapid Ql (Resp) [facility] SARS-CoV-2 (COVID-19) Ag IA.rapid Ql (Resp) [facility] Culture, urineOrdered By: Viktor Mckee on 08-02-2023 Bacteria identified Cx Nom (U) Pseudomonas aeruginosa [facility] Bacteria identified Cx Nom (U) Pseudomonas aeruginosa [facility] Ketones Test strip Ql (U)Ord ered By: Brian Mckee on 08-02-2023 Ketones Ql (U) Negative Negative [facility] Laboratory - Chemistry and C hemistry - challengeOrdered By: Brian Mckee on 08-02-2023 Lipase [Catalytic activity/Vol] 26 U/L 13-75 [facility] Comment on above: Please note:LIPASE r evised reference range effective 23. New Lipase methodology. Expected to produce lower values than the previous assay method. NEW Reference Range: 13 - 75 U/L Laboratory - Microbiology an d Antimicrobial susceptibilityOrdered By: Brian Mckee on 08-02-2023 Bacteria identified Cx Nom (Bld) No growth in 5 days. [facility] Bacteria identified Cx Nom (Bld) No growth in 5 days. [facility] Mucus LM Ql (Urine sed)Order ed By: Brian Mckee on 08-02-2023 Mucus Ql (Urine sed) 0 SEEN /hpf [facility] Nitrite Test strip Ql (U)Ord ered By: Brian Mckee on 08-02-2023 Nitrite Ql (U) Positive Negative [facility] No Panel InformationOrdered By: Brian Mckee on 08-02-2023 No growth in 5 days. [facility] 26 U/L 13-75 [facility] Protein Test strip Ql (U)Ord ered By: Brian Mckee on 08-02-2023 Protein Ql (U) 100 mg/dl Negative [facility] Review by pathologistOrdered By: Brian Mckee on 08-02-2023 Pathologist review Pollo (Unsp spec) [Interp] Reviewed [facility] Comment on above: Previous reported re sult: Denisse alcala Edited by: RGOLUCAS on 08/06/23:0958Neutrophilic leukocytosis.Clinical correlation necessary.Nikolas Clark M.D. 08/06/23 AMENDED REPORT 08/06/23 0958 PATH REV previously reported as: Denisse alcala Squamous epithelial cells de tection in urine sediment by light microscopyOrdered By: Brian Mckee on 08-02-2023 Epithelial cells.squamous LM Ql (Urine sed) 0 SEEN /hpf 5-10 [facility] Urine blood detectionOrdered By: Brian Mckee on 08-02-2023 RBC Ql (U) 150 /ul Negative [facility] RBC Ql (U) 0-5 SEEN /hpf 0-5 [facility] Urine clarityOrdered By: Eladio Mckee on 08-02-2023 Clarity (U) Cloudy Clear [facility] Urine color determinationOrd ered By: Brian Mckee on 08-02-2023 Color (U) Yellow Yellow [facility] Urine glucose detectionOrder ed By: Brian Mckee on 08-02-2023 Glucose Ql (U) Normal mg/dl Normal [facility] Urine leukocyte esterase det ection by dipstickOrdered By: Brian Mckee on 08-02-2023 Leukocyte esterase Test strip Ql (U) 500 /ul Negative [facility] Urine pHOrdered By: Brian delarosa on 08-02-2023 pH (U) 6.0 [pH] 5.0 - 8.0 [facility] Urine sediment bacteria coun t by microscopy (number/high power field)Ordered By: Brian Mckee on 08-02-2023 Bacteria LM.HPF (Urine sed) [#/Area] 2 /[HPF] None Seen [facility] Urine specific gravity measu rementOrdered By: Brian Mckee on 08-02-2023 Specific gravity (U) [Rel density] 1.010 1.002-1.03 0 [facility] Urobilinogen Auto test strip Ql (U)Ordered By: Brian Mckee on 08-02-2023 Urobilinogen Ql (U) Normal mg/dl Normal [facility] Laboratory - Microbiology an d Antimicrobial susceptibilityOrdered By: Gerardo García on 07-20-2023 SARS-CoV-2 (COVID-19) RNA BOBBI+probe Ql (Unsp spec) [facility] SARS-CoV-2 (COVID-19) RNA BOBBI+probe Ql (Unsp spec) [facility] No Panel InformationOrdered By: Gerardo García on 07-20-2023 Influenza Types A,B Direct FA (LEVI) [facility] Influenza Types A,B Direct FA (LEVI) [facility] RSV Ag EIAOrdered By: Gerardo guerra on 07-20-2023 RSV Ag Immune stain Ql (Tiss) [facility] RSV Ag Immune stain Ql (Tiss) [facility] Gram stain for investigation of transfusion reactionOrdered By: Gerardo García on 06-19-2023 Microscopic observation Gram stain Nom (Unsp spec) [facility] No Panel InformationOrdered By: Gerardo García on 06-19-2023 Methicillin-Resist S.aureus DNA PCR Negative Negative [facility] Negative Negative [facility] Routine wound cultureOrdered By: Gerardo García on 06-19-2023 Bacteria identified Cx Nom (Wound) No growth aerobically. [facility] Staphylococcus aureus DNA de tection by probe and target amplification methodOrdered By: Gerardo García on 08-01-2023 S. aureus DNA BOBBI+probe Ql (Unsp spec) Negative Negative [facility] Basophil percentageOrdered B y: Luz Maria Matthews on 06-11-2023 Basophil percentage 3.6 mg/dL 2.5-4.9 [facility] Basophil percentage 98 mg/dL 74-106 [facility] Basophil percentage 136 mmol/L 136-145 [facility] Basophil percentage 4.1 mmol/L 3.5-5.1 [facility] Basophil percentage 105 mmol/L 98-107 [facility] Chloride [Moles/Vol] 105 mmol/L 98-107 [facility] Glucose [Mass/Vol] 98 mg/dL 74-106 [facility] Potassium [Moles/Vol] 4.1 mmol/L 3.5-5.1 [facility] Sodium [Moles/Vol] 136 mmol/L 136-145 [facility] Laboratory - Chemistry and C hemistry - challengeOrdered By: Luz Maria Matthews on 06-11-2023 CO2 [Moles/Vol] 26.0 mmol/L 21.0-32.0 [facility] Urea nitrogen/Creatinine [Mass ratio] 8.2 mg/mg 10-20 [facility] No Panel InformationOrdered By: Luz Maria Matthews on 06-11-2023 Estimated GFR (MDRD) Amer 38 mL/min >60 [facility] Comment on above: GFR Calc Estimated GFR (MDRD) Non-Af Amer 31 mL/min >60 [facility] Comment on above: Non- GFR Calc Parathyroid Hormone (Intact) 99.8 pg/mL 18.4-80.1 [facility] 31 mL/min >60 [facility] 38 mL/min >60 [facility] 8.2 RATIO 10-20 [facility] 26.0 mmol/L 21.0-32.0 [facility] 99.8 pg/mL 18.4-80.1 [facility] Serum or plasma albumin yunior urement (mass/volume)Ordered By: Luz Maria Matthews on 06-11-2023 Albumin [Mass/Vol] 2.7 g/dL 3.2-5.0 [facility] Serum or plasma calcium yunior urement (mass/volume)Ordered By: Luz Maria Matthews on 06-11-2023 Calcium [Mass/Vol] 8.3 mg/dL 8.5-10.1 [facility] Serum or plasma creatinine m easurement (mass/volume)Ordered By: Luz Maria Matthews on 06-11-2023 Creatinine [Mass/Vol] 1.71 mg/dL 0.55-1.02 [facility] Comment on above: The validity of the calculated GFR & GFRAA in patients over 70 years has not been determined. Clinical correlation is essential. Serum or plasma urea nitroge n measurement (mass/volume)Ordered By: Luz Maria Matthews on 06-11-2023 Urea nitrogen [Mass/Vol] 14 mg/dL 7-18 [facility] Culture, urineOrdered By: Mckenna Strickland on 05-28-2023 Bacteria identified Cx Nom (U) Pseudomonas aeruginosa [facility] Bacteria identified Cx Nom (U) Klebsiella pneumoniae sp pneum [facility] Culture, urineOrdered By: Dr Javy García on 05-15-2023 Bacteria identified Cx Nom (U) Pseudomonas aeruginosa [facility] COVID-19 virus antigen assay Ordered By: Dr. García on 05-14-2023 SARS-CoV-2 (COVID-19) Ag IA.rapid Ql (Resp) Not detected Not Detect [facility] Comment on above: Normal Reference Ran [...] 05-14-2023 Influenza Types A,B Direct FA (LEVI) [facility] No Panel InformationOrdered By: Dr. García on 06-26-2023 Influenza Types A,B Direct FA (LEVI) [facility] RSV Ag EIAOrdered By: Gerardo guerra on 05-14-2023 RSV Ag Immune stain Ql (Tiss) [facility] RSV Ag EIAOrdered By: Dr. Saúl guerra on 05-14-2023 RSV Ag Immune stain Ql (Tiss) [facility] Culture, urineOrdered By: Dr Javy Strickland on 05-12-2023 Bacteria identified Cx Nom (U) Pseudomonas aeruginosa [facility] Culture, urineOrdered By: Lenny García on 05-11-2023 Bacteria identified Cx Nom (U) Pseudomonas aeruginosa [facility] Culture, urineOrdered By: Mckenna Strickland on 05-10-2023 Bacteria identified Cx Nom (U) Pseudomonas aeruginosa [facility] Absolute lymphocyte countOrd ered By: Dr. García on 04-03-2023 Lymphocytes Auto (Unsp spec) [#/Vol] 8.29 10*3/uL 0.83-4.51 [facility] Basophil percentageOrdered B y: Dr. García on 04-03-2023 Basophils/100 WBC (Bld) 0.6 % 0-1 [facility] Bilirubin [Mass/Vol] 0.90 mg/dL 0.20-1.00 [facility] Comment on above: For patients on eltr ombopag therapy, use of Dimension [place] TBIL is not recommended. Chloride [Moles/Vol] 107 mmol/L 98-107 [facility] Eosinophils/100 WBC (Bld) 1.0 % 0-5 [facility] Glucose [Mass/Vol] 113 mg/dL 74-106 [facility] Comment on above: Fasting Glucose resu lt from 100 to 125 mg/dL suggests IMPAIRED HOMEOSTASIS per A.D.A. criteria. Neutrophils (Bld) [#/Vol] 6.3 10*3/uL 2.0-7.7 [facility] Neutrophils/100 WBC (Bld) 39.4 % 47-70 [facility] Potassium [Moles/Vol] 4.1 mmol/L 3.5-5.1 [facility] Protein [Mass/Vol] 7.9 g/dL 6.4-8.2 [facility] Sodium [Moles/Vol] 139 mmol/L 136-145 [facility] WBC (Bld) [#/Vol] 16.0 10*3/uL 4.4-11.0 [facility] Bilirubin Test strip Ql (U)O rdered By: Dr. García on 04-03-2023 Bilirubin Ql (U) Negative Negative [facility] Blood erythrocytes count (nu mber/volume)Ordered By: Dr. García on 04-03-2023 RBC (Bld) [#/Vol] 4.69 10*6/uL 4.2-5.4 [facility] Blood hemoglobin measurement (mass/volume)Ordered By: Dr. García on 04-03-2023 Hemoglobin (Bld) [Mass/Vol] 14.9 g/dL 12.0-15.0 [facility] Blood lymphocytes/100 leukoc ytesOrdered By: Dr. García on 04-03-2023 Lymphocytes/100 WBC (Bld) 51.8 % 19-41 [facility] Blood monocytes/100 leukocyt esOrdered By: Dr. García on 04-03-2023 Monocytes/100 WBC (Bld) 6.9 % 0-10 [facility] Blood platelet mean volumeOr dered By: Dr. García on 04-03-2023 Platelet mean volume (Bld) [Entitic vol] 10.1 fL 6.2-12.0 [facility] Determination of erythrocyte mean corpuscular volume (MCV)Ordered By: Dr. García on 04-03-2023 MCV (RBC) [Entitic vol] 97.9 fL 81-99 [facility] Hematocrit Auto (Bld) [Volum e fraction]Ordered By: Dr. García on 04-03-2023 Hematocrit (Bld) [Volume fraction] 45.9 % 37-47 [facility] Ketones Test strip Ql (U)Ord ered By: Dr. García on 04-03-2023 Ketones Ql (U) Negative Negative [facility] Laboratory - Chemistry and C hemistry - challengeOrdered By: Dr. García on 04-03-2023 ALP [Catalytic activity/Vol] 94 U/L 45-117 [facility] ALT [Catalytic activity/Vol] 15 U/L 13-56 [facility] CO2 [Moles/Vol] 25.0 mmol/L 21.0-32.0 [facility] Globulin (S) [Mass/Vol] 5.2 g/dL 2.2-4.2 [facility] Urea nitrogen/Creatinine [Mass ratio] 8.9 mg/mg 10-20 [facility] Laboratory - Hematology and Cell countsOrdered By: Dr. García on 04-03-2023 Erythrocyte distribution width (RBC) [Entitic vol] 52.1 fL 35.1-43.9 [facility] Erythrocyte distribution width (RBC) [Ratio] 14.5 % 11.6-14.6 [facility] Immature granulocytes/100 WBC (Bld) 0.300 % 0.0-0.9 [facility] Comment on above: IG% - Immature Granu locytes (promyelocytes, myelocytes and metamyelocytes) > 1% indicates that a LEFT SHIFT is Present. MCH (RBC) [Entitic mass] 31.8 pg 27.0-32.0 [facility] Nucleated RBC/100 WBC (Bld) [Ratio] 0 % 0-5 [facility] MCHC Auto (RBC) [Mass/Vol]Or dered By: Dr. García on 04-03-2023 MCHC (RBC) [Mass/Vol] 32.5 g/dL 32-36 [facility] Nitrite Test strip Ql (U)Ord ered By: Dr. García on 04-03-2023 Nitrite Ql (U) Positive Negative [facility] No Panel InformationOrdered By: Dr. García on 04-03-2023 Estimated GFR (MDRD) Amer 31 mL/min >60 [facility] Comment on above: GFR Calc Estimated GFR (MDRD) Non-Af Amer 26 mL/min >60 [facility] Comment on above: Non- GFR Calc Reactive Lymphocytes 1+ [facility] Platelets bldOrdered By: Dr. García on 04-03-2023 Platelets (Bld) [#/Vol] 340 10*3/uL 150-450 [facility] Protein Test strip Ql (U)Ord ered By: Dr. García on 04-03-2023 Protein Ql (U) 100 mg/dl Negative [facility] Serum or plasma albumin yunior urement (mass/volume)Ordered By: Dr. García on 04-03-2023 Albumin [Mass/Vol] 2.7 g/dL 3.2-5.0 [facility] Serum or plasma albumin/glob ulin mass ratioOrdered By: Dr. García on 04-03-2023 Albumin/Globulin [Mass ratio] 0.5 {ratio} 0.9-2.4 [facility] Serum or plasma calcium yunior urement (mass/volume)Ordered By: Dr. García on 04-03-2023 Calcium [Mass/Vol] 9.2 mg/dL 8.5-10.1 [facility] Serum or plasma creatinine m easurement (mass/volume)Ordered By: Dr. García on 04-03-2023 Creatinine [Mass/Vol] 2.02 mg/dL 0.55-1.02 [facility] Comment on above: The validity of the calculated GFR & GFRAA in patients over 70 years has not been determined. Clinical correlation is essential. Serum or plasma urea nitroge n measurement (mass/volume)Ordered By: Dr. García on 04-03-2023 Urea nitrogen [Mass/Vol] 18 mg/dL 7-18 [facility] Thin prep Papanicolaou smear with manual screeningOrdered By: Dr. García on 04-03-2023 Thin prep Papanicolaou smear with manual screening 16 U/L 15-37 [facility] Thin prep Papanicolaou smear with manual screening 7 5-15 [facility] Urine blood detectionOrdered By: Dr. García on 04-03-2023 RBC Ql (U) 150 /ul Negative [facility] Urine clarityOrdered By: Dr. García on 04-03-2023 Clarity (U) Cloudy Clear [facility] Urine color determinationOrd ered By: Dr. García on 04-03-2023 Color (U) Yellow Yellow [facility] Urine glucose detectionOrder ed By: Dr. García on 04-03-2023 Glucose Ql (U) Normal mg/dl Normal [facility] Urine leukocyte esterase det ection by dipstickOrdered By: Dr. García on 04-03-2023 Leukocyte esterase Test strip Ql (U) 500 /ul Negative [facility] Urine pHOrdered By: Dr. García on 05-16-2023 pH (U) 7.0 [pH] 5.0 - 8.0 [facility] Urine specific gravity measu rementOrdered By: Dr. García on 04-03-2023 Specific gravity (U) [Rel density] 1.010 1.002-1.03 0 [facility] Urobilinogen Auto test strip Ql (U)Ordered By: Dr. García on 04-03-2023 Urobilinogen Ql (U) Normal mg/dl Normal [facility] Absolute lymphocyte countOrd ered By: Gerardo García on 01-22-2023 Lymphocytes Auto (Unsp spec) [#/Vol] 3.62 10*3/uL 0.83-4.51 [facility] Basophil percentageOrdered B y: Gerardo García on 01-22-2023 Basophils/100 WBC (Bld) 0.4 % 0-1 [facility] Bilirubin [Mass/Vol] 0.80 mg/dL 0.20-1.00 [facility] Comment on above: For patients on eltr ombopag therapy, use of Dimension [place] TBIL is not recommended. Chloride [Moles/Vol] 105 mmol/L 98-107 [facility] Cholesterol [Mass/Vol] 218 mg/dL <200 [facility] Comment on above: <200 mg/dL Desirable 200-240 mg/dL Borderline >240 mg/dL High Risk Eosinophils/100 WBC (Bld) 0.1 % 0-5 [facility] Glucose [Mass/Vol] 104 mg/dL 74-106 [facility] Comment on above: Fasting Glucose resu lt from 100 to 125 mg/dL suggests IMPAIRED HOMEOSTASIS per A.D.A. criteria. Neutrophils (Bld) [#/Vol] 11.5 10*3/uL 2.0-7.7 [facility] Neutrophils/100 WBC (Bld) 73.2 % 47-70 [facility] Potassium [Moles/Vol] 4.1 mmol/L 3.5-5.1 [facility] Protein [Mass/Vol] 7.9 g/dL 6.4-8.2 [facility] Sodium [Moles/Vol] 137 mmol/L 136-145 [facility] Triglyceride [Mass/Vol] 190 mg/dL <199 [facility] Comment on above: The drugs N-Acetylcy steine and Metamizole may falsely depress this assay.Serum Triglycerides Reference Interval Normal <150 mg/dL Borderline high 150 - 199 mg/dL High 200 - 499 mg/dL Very High > or = 500 mg/dL WBC (Bld) [#/Vol] 15.7 10*3/uL 4.4-11.0 [facility] Blood erythrocytes count (nu mber/volume)Ordered By: Gerardo García on 01-22-2023 RBC (Bld) [#/Vol] 4.61 10*6/uL 4.2-5.4 [facility] Blood hemoglobin measurement (mass/volume)Ordered By: Gerardo García on 01-22-2023 Hemoglobin (Bld) [Mass/Vol] 14.9 g/dL 12.0-15.0 [facility] Blood lymphocytes/100 leukoc ytesOrdered By: Gerardo García on 01-22-2023 Lymphocytes/100 WBC (Bld) 23.1 % 19-41 [facility] Blood monocytes/100 leukocyt esOrdered By: Gerardo García on 01-22-2023 Monocytes/100 WBC (Bld) 2.4 % 0-10 [facility] Blood platelet mean volumeOr dered By: Gerardo García on 01-22-2023 Platelet mean volume (Bld) [Entitic vol] 10.6 fL 6.2-12.0 [facility] COVID-19 virus antigen assay Ordered By: Dr. García on 01-22-2023 SARS-CoV-2 (COVID-19) Ag IA.rapid Ql (Resp) Not detected Not Detect [facility] Comment on above: Normal Reference Ran [...] (RBC) [Entitic vol] 100.4 fL 81-99 [facility] Hematocrit Auto (Bld) [Volum e fraction]Ordered By: Gerardo García on 01-22-2023 Hematocrit (Bld) [Volume fraction] 46.3 % 37-47 [facility] Laboratory - Chemistry and C hemistry - challengeOrdered By[facility] 01-[facility]23 ALP [Catalytic activity/Vol] 89 U/L 45-117 [facility] ALT [Catalytic activity/Vol] 16 U/L 13-56 [facility] CO2 [Moles/Vol] 24.0 mmol/L 21.0-32.0 [facility] Globulin (S) [Mass/Vol] 4.7 g/dL 2.2-4.2 [facility] Urea nitrogen/Creatinine [Mass ratio] 14.8 mg/mg 10-20 [facility] Laboratory - Hematology and Cell countsOrdered By: Gerardo García on 01-22-2023 Erythrocyte distribution width (RBC) [Entitic vol] 49.1 fL 35.1-43.9 [facility] Erythrocyte distribution width (RBC) [Ratio] 13.3 % 11.6-14.6 [facility] Immature granulocytes/100 WBC (Bld) 0.800 % 0.0-0.9 [facility] Comment on above: IG% - Immature Granu locytes (promyelocytes, myelocytes and metamyelocytes) > 1% indicates that a LEFT SHIFT is Present. MCH (RBC) [Entitic mass] 32.3 pg 27.0-32.0 [facility] Nucleated RBC/100 WBC (Bld) [Ratio] 0 % 0-5 [facility] MCHC Auto (RBC) [Mass/Vol]Or dered By: Gerardo García on 01-22-2023 MCHC (RBC) [Mass/Vol] 32.2 g/dL 32-36 [facility] No Panel InformationOrdered By: Gerardo García on 01-22-2023 Estimated GFR (MDRD) Amer 30 mL/min >60 [facility] Comment on above: GFR Calc Estimated GFR (MDRD) Non-Af Amer 25 mL/min >60 [facility] Comment on above: Non- GFR Calc Thyroid Stimulating Hormone (TSH) 2.47 uIU/mL 0.358-3.74 [facility] Vitamin D 25-Hydroxy 58.8 ng/mL [facility] Comment on above: Vitamin D 25(OH) Sta tus Range Deficiency <20 ng/mL (50nmol/L) Insufficiency 20 - 30 ng/mL (50 - 75 nmol/L) Sufficiency 30 - 100 ng/mL (75 - 250 nmol/L) Toxicity >100 ng/mL (>250 nmol/L) No Panel InformationOrdered By: Dr. García on 01-22-2023 Influenza Types A,B Direct FA (LEVI) [facility] Platelets bldOrdered By: Gerarod García on 01-22-2023 Platelets (Bld) [#/Vol] 353 10*3/uL 150-450 [facility] RSV Ag EIAOrdered By: Dr. Saúl guerra on 01-22-2023 RSV Ag Immune stain Ql (Tiss) [facility] Serum or plasma albumin yunior urement (mass/volume)Ordered By: Gerardo García on 01-22-2023 Albumin [Mass/Vol] 3.2 g/dL 3.2-5.0 [facility] Serum or plasma albumin/glob ulin mass ratioOrdered By: Gerardo García on 01-22-2023 Albumin/Globulin [Mass ratio] 0.7 {ratio} 0.9-2.4 [facility] Serum or plasma calcium yunior urement (mass/volume)Ordered By: Gerardo García on 01-22-2023 Calcium [Mass/Vol] 8.7 mg/dL 8.5-10.1 [facility] Serum or plasma cholesterol in HDL measurement (mass/volume)Ordered By: Gerardo García on 01-22-2023 Cholesterol in HDL [Mass/Vol] 41 mg/dL >40 [facility] Comment on above: The drugs N-Acetylcy steine and Metamizole may falsely depress this assay. Reference Range HDL <40 mg/dL Low HDL Cholesterol HDL >or= 60 mg/dL High HDL Cholesterol Serum or plasma cholesterol in VLDL measurement (mass/volume)Ordered By: Gerardo García on 01-22-2023 Cholesterol in VLDL [Mass/Vol] 38 mg/dL 5-40 [facility] Serum or plasma creatinine m easurement (mass/volume)Ordered By: Gerardo García on 01-22-2023 Creatinine [Mass/Vol] 2.09 mg/dL 0.55-1.02 [facility] Comment on above: The validity of the calculated GFR & GFRAA in patients over 70 years has not been determined. Clinical correlation is essential. Serum or plasma low density lipoprotein (LDL) cholesterol measurement (mass/volume)Ordered By: Gerardo García on 01-22-2023 Cholesterol in LDL [Mass/Vol] 139 mg/dL 0-130 [facility] Serum or plasma urea nitroge n measurement (mass/volume)Ordered By: Gerardo García on 01-22-2023 Urea nitrogen [Mass/Vol] 31 mg/dL 7-18 [facility] Thin prep Papanicolaou smear with manual screeningOrdered By: Gerardo García on 01-22-2023 Thin prep Papanicolaou smear with manual screening 15 U/L 15-37 [facility] Thin prep Papanicolaou smear with manual screening 8 5-15 [facility] Anaerobic cultureOrdered By: Radha Schroeder on 01-06-2023 Bacteria identified Anaer cx Nom (Unsp spec) No anaerobic bacteria isolated. [facility] Bacteria identified Cx Nom ( Wound)Ordered By: Radha Schroeder on 01-04-2023 Wound Culture Meth. resistant Stap h. aureus [facility] Culture, urineOrdered By: Dr Javy García on 01-03-2023 Bacteria identified Cx Nom (U) Mixed Gram Pos & Gram Neg Org [facility] COVID-19 virus antigen assay Ordered By: Dr. García on 01-02-2023 SARS-CoV-2 (COVID-19) Ag IA.rapid Ql (Resp) Not detected Not Detect [facility] Comment on above: Normal Reference Ran ge: Not DetectedMethod:(RT-PCR) real-time reverse transcriptase PCRLuminex DAILY Instrument*The Food and Drug Administration (FDA) has issued an Emergency Use Authorization (EAU) for the DAILY SARS-CoV-2 Assay for the rapid detection of the virus that causes COVID-19. This test has been validated, but the [facility] of this validation is pending.*Negative [...] stain for investigation of transfusion reactionOrdered By: Radha Schroeder on 01-02-2023 Microscopic observation Gram stain Nom (Unsp spec) [facility] No Panel InformationOrdered By: Dr. García on 01-02-2023 Influenza Types A,B Direct FA (LEVI) [facility] RSV Ag EIAOrdered By: Dr. Saúl guerra on 01-02-2023 RSV Ag Immune stain Ql (Tiss) [facility] Basophil percentageOrdered B y: Dr. Matthews on 12-05-2022 Basophil percentage 3.4 mg/dL 2.5-4.9 [facility] Chloride [Moles/Vol] 107 mmol/L 98-107 [facility] Glucose [Mass/Vol] 103 mg/dL 74-106 [facility] Comment on above: Fasting Glucose resu lt from 100 to 125 mg/dL suggests IMPAIRED HOMEOSTASIS per A.D.A. criteria. Potassium [Moles/Vol] 4.0 mmol/L 3.5-5.1 [facility] Sodium [Moles/Vol] 139 mmol/L 136-145 [facility] Laboratory - Chemistry and C hemistry - challengeOrdered By: Dr. Matthews on 12-05-2022 CO2 [Moles/Vol] 28.0 mmol/L 21.0-32.0 [facility] Urea nitrogen/Creatinine [Mass ratio] 8.1 mg/mg 10-20 [facility] No Panel InformationOrdered By: Dr. Matthews on 12-05-2022 Estimated GFR (MDRD) Amer 34 mL/min >60 [facility] Comment on above: GFR Calc Estimated GFR (MDRD) Non-Af Amer 28 mL/min >60 [facility] Comment on above: Non- GFR Calc Parathyroid Hormone (Intact) 159.4 pg/mL 18.4-80.1 [facility] Vitamin D 25-Hydroxy 47.4 ng/mL [facility] Comment on above: Vitamin D 25(OH) Sta tus Range Deficiency <20 ng/mL (50nmol/L) Insufficiency 20 - 30 ng/mL (50 - 75 nmol/L) Sufficiency 30 - 100 ng/mL (75 - 250 nmol/L) Toxicity >100 ng/mL (>250 nmol/L) Serum or plasma albumin yunior urement (mass/volume)Ordered By: Dr. Matthews on 12-05-2022 Albumin [Mass/Vol] 2.8 g/dL 3.2-5.0 [facility] Serum or plasma calcium yunior urement (mass/volume)Ordered By: Dr. Matthews on 12-05-2022 Calcium [Mass/Vol] 8.7 mg/dL 8.5-10.1 [facility] Serum or plasma creatinine m easurement (mass/volume)Ordered By: Dr. Matthews on 12-05-2022 Creatinine [Mass/Vol] 1.86 mg/dL 0.55-1.02 [facility] Comment on above: The validity of the calculated GFR & GFRAA in patients over 70 years has not been determined. Clinical correlation is essential. Serum or plasma urea nitroge n measurement (mass/volume)Ordered By: Dr. Matthews on 12-05-2022 Urea nitrogen [Mass/Vol] 15 mg/dL 7-18 [facility] Culture, urineOrdered By: Dr Javy Strickland on 11-01-2022 Bacteria identified Cx Nom (U) Pseudomonas aeroginosa [facility] Absolute lymphocyte countOrd ered By: Dr. García on 10-30-2022 Lymphocytes Auto (Unsp spec) [#/Vol] 8.75 10*3/uL 0.83-4.51 [facility] Basophil percentageOrdered B y: Dr. García on 10-30-2022 Basophils/100 WBC (Bld) 0.1 % 0-1 [facility] Bilirubin [Mass/Vol] 0.70 mg/dL 0.20-1.00 [facility] Comment on above: For patients on eltr ombopag therapy, use of Dimension [place] TBIL is not recommended. Chloride [Moles/Vol] 106 mmol/L 98-107 [facility] Cholesterol [Mass/Vol] 223 mg/dL <200 [facility] Comment on above: <200 mg/dL Desirable 200-240 mg/dL Borderline >240 mg/dL High Risk Eosinophils/100 WBC (Bld) 0.3 % 0-5 [facility] Glucose [Mass/Vol] 97 mg/dL 74-106 [facility] Neutrophils (Bld) [#/Vol] 12.8 10*3/uL 2.0-7.7 [facility] Neutrophils/100 WBC (Bld) 53.6 % 47-70 [facility] Potassium [Moles/Vol] 3.3 mmol/L 3.5-5.1 [facility] Protein [Mass/Vol] 8.1 g/dL 6.4-8.2 [facility] Sodium [Moles/Vol] 139 mmol/L 136-145 [facility] Triglyceride [Mass/Vol] 196 mg/dL <199 [facility] Comment on above: The drugs N-Acetylcy steine and Metamizole may falsely depress this assay.Serum Triglycerides Reference Interval Normal <150 mg/dL Borderline high 150 - 199 mg/dL High 200 - 499 mg/dL Very High > or = 500 mg/dL WBC (Bld) [#/Vol] 23.9 10*3/uL 4.4-11.0 [facility] Blood erythrocytes count (nu mber/volume)Ordered By: Dr. García on 10-30-2022 RBC (Bld) [#/Vol] 4.84 10*6/uL 4.2-5.4 [facility] Blood hemoglobin measurement (mass/volume)Ordered By: Dr. García on 10-30-2022 Hemoglobin (Bld) [Mass/Vol] 15.5 g/dL 12.0-15.0 [facility] Blood lymphocytes/100 leukoc ytesOrdered By: Dr. García on 10-30-2022 Lymphocytes/100 WBC (Bld) 36.6 % 19-41 [facility] Blood manual differential co mment interpretation (narrative result)Ordered By: Dr. García on 10-30-2022 Manual differential comment Pollo (Bld) [Interp] SCANNED [facility] Blood monocytes/100 leukocyt esOrdered By: Dr. García on 10-30-2022 Monocytes/100 WBC (Bld) 6.2 % 0-10 [facility] Blood platelet mean volumeOr dered By: Dr. García on 10-30-2022 Platelet mean volume (Bld) [Entitic vol] 10.2 fL 6.2-12.0 [facility] Determination of erythrocyte mean corpuscular volume (MCV)Ordered By: Dr. García on 10-30-2022 MCV (RBC) [Entitic vol] 101.2 fL 81-99 [facility] Hematocrit Auto (Bld) [Volum e fraction]Ordered By: Dr. García on 10-30-2022 Hematocrit (Bld) [Volume fraction] 49.0 % 37-47 [facility] Laboratory - Chemistry and C hemistry - challengeOrdered By: Dr. García on 10-30-2022 ALP [Catalytic activity/Vol] 96 U/L 45-117 [facility] ALT [Catalytic activity/Vol] 25 U/L 13-56 [facility] CO2 [Moles/Vol] 24.0 mmol/L 21.0-32.0 [facility] Globulin (S) [Mass/Vol] 5.0 g/dL 2.2-4.2 [facility] Urea nitrogen/Creatinine [Mass ratio] 15.2 mg/mg 10-20 [facility] Laboratory - Hematology and Cell countsOrdered By: Dr. García on 10-30-2022 Erythrocyte distribution width (RBC) [Entitic vol] 55.8 fL 35.1-43.9 [facility] Erythrocyte distribution width (RBC) [Ratio] 14.7 % 11.6-14.6 [facility] Immature granulocytes/100 WBC (Bld) 3.200 % 0.0-0.9 [facility] Comment on above: IG% - Immature Granu locytes (promyelocytes, myelocytes and metamyelocytes) > 1% indicates that a LEFT SHIFT is Present. MCH (RBC) [Entitic mass] 32.0 pg 27.0-32.0 [facility] Nucleated RBC/100 WBC (Bld) [Ratio] 0 % 0-5 [facility] MCHC Auto (RBC) [Mass/Vol]Or dered By: Dr. García on 10-30-2022 MCHC (RBC) [Mass/Vol] 31.6 g/dL 32-36 [facility] No Panel InformationOrdered By: Dr. García on 10-30-2022 Estimated GFR (MDRD) Amer 32 mL/min >60 [facility] Comment on above: GFR Calc Estimated GFR (MDRD) Non-Af Amer 27 mL/min >60 [facility] Comment on above: Non- GFR Calc Thyroid Stimulating Hormone (TSH) 2.88 uIU/mL 0.358-3.74 [facility] Vitamin D 25-Hydroxy 37.2 ng/mL [facility] Comment on above: Vitamin D 25(OH) Sta tus Range Deficiency <20 ng/mL (50nmol/L) Insufficiency 20 - 30 ng/mL (50 - 75 nmol/L) Sufficiency 30 - 100 ng/mL (75 - 250 nmol/L) Toxicity >100 ng/mL (>250 nmol/L) Platelets bldOrdered By: Dr. García on 10-30-2022 Platelets (Bld) [#/Vol] 408 10*3/uL 150-450 [facility] Serum or plasma albumin yunior urement (mass/volume)Ordered By: Dr. García on 10-30-2022 Albumin [Mass/Vol] 3.1 g/dL 3.2-5.0 [facility] Serum or plasma albumin/glob ulin mass ratioOrdered By: Dr. García on 10-30-2022 Albumin/Globulin [Mass ratio] 0.6 {ratio} 0.9-2.4 [facility] Serum or plasma calcium yunior urement (mass/volume)Ordered By: Dr. García on 10-30-2022 Calcium [Mass/Vol] 8.7 mg/dL 8.5-10.1 [facility] Serum or plasma cholesterol in HDL measurement (mass/volume)Ordered By: Dr. García on 10-30-2022 Cholesterol in HDL [Mass/Vol] 46 mg/dL >40 [facility] Comment on above: The drugs N-Acetylcy steine and Metamizole may falsely depress this assay. Reference Range HDL <40 mg/dL Low HDL Cholesterol HDL >or= 60 mg/dL High HDL Cholesterol Serum or plasma cholesterol in VLDL measurement (mass/volume)Ordered By: Dr. García on 10-30-2022 Cholesterol in VLDL [Mass/Vol] 39 mg/dL 5-40 [facility] Serum or plasma creatinine m easurement (mass/volume)Ordered By: Dr. García on 10-30-2022 Creatinine [Mass/Vol] 1.97 mg/dL 0.55-1.02 [facility] Comment on above: The validity of the calculated GFR & GFRAA in patients over 70 years has not been determined. Clinical correlation is essential. Serum or plasma low density lipoprotein (LDL) cholesterol measurement (mass/volume)Ordered By: Dr. García on 10-30-2022 Cholesterol in LDL [Mass/Vol] 138 mg/dL 0-130 [facility] Serum or plasma urea nitroge n measurement (mass/volume)Ordered By: Dr. García on 10-30-2022 Urea nitrogen [Mass/Vol] 30 mg/dL 7-18 [facility] Thin prep Papanicolaou smear with manual screeningOrdered By: Dr. García on 10-30-2022 Thin prep Papanicolaou smear with manual screening 15 U/L 15-37 [facility] Thin prep Papanicolaou smear with manual screening 9 5-15 [facility] Laboratory - Microbiology an d Antimicrobial susceptibilityOrdered By: Dr. García on 10-27-2022 SARS-CoV-2 (COVID-19) RNA BOBBI+probe Ql (Unsp spec) Not detected Not Detect [facility] Comment on above: Normal Reference Ran [...] 10-27-2022 Influenza Types A,B Direct FA (LEVI) [facility] RSV Ag EIAOrdered By: Dr. Saúl guerra on 10-27-2022 RSV Ag Immune stain Ql (Tiss) [facility] Laboratory - Microbiology an d Antimicrobial susceptibilityOrdered By: Dr. García on 10-02-2022 SARS-CoV-2 (COVID-19) RNA BOBBI+probe Ql (Unsp spec) Not detected Not Detect [facility] Comment on above: Normal Reference Ran ge: Not DetectedMethod:(RT-PCR) real-time reverse transcriptase PCRLuminex Dunamu Instrument*The Food and Drug Administration (FDA) has [...] 10-02-2022 Influenza Types A,B Direct FA (LEVI) [facility] RSV Ag EIAOrdered By: Dr. Saúl guerra on 10-02-2022 RSV Ag Immune stain Ql (Tiss) [facility] No Panel InformationOrdered By: Dr. Matthews on 08-28-2022 Parathyroid Hormone (Intact) 153.9 pg/mL 18.4-80.1 [facility] Absolute lymphocyte counton 08-03-2022 Lymphocytes Auto (Unsp spec) [#/Vol] 4.56 10*3/uL 0.83-4.51 [facility] Work Phone: Basophil percentageon 2021 Basophils/100 WBC (Bld) 0.4 % 0-1 [facility] Work Phone: Bilirubin [Mass/Vol] 0.60 mg/dL 0.20-1.00 [facility] Work Phone: Comment on above: For patients on eltr ombopag therapy, use of Dimension [place] TBIL is not recommended. Chloride [Moles/Vol] 110 mmol/L 98-107 [facility] Work Phone: [phone] Cholesterol [Mass/Vol] 150 mg/dL <200 [facility] Work Phone: [phone] Comment on above: <200 mg/dL Desirable 200-240 mg/dL Borderline >240 mg/dL High Risk Eosinophils/100 WBC (Bld) 0.6 % 0-5 [facility] Work Phone: [phone] Glucose [Mass/Vol] 96 mg/dL 74-106 [facility] Work Phone: [phone] Neutrophils (Bld) [#/Vol] 8.8 10*3/uL 2.0-7.7 [facility] Work Phone: [phone] Neutrophils/100 WBC (Bld) 61.4 % 47-70 [facility] Work Phone: [phone] Potassium [Moles/Vol] 4.2 mmol/L 3.5-5.1 [facility] Work Phone: [phone] Protein [Mass/Vol] 6.9 g/dL 6.4-8.2 [facility] Work Phone: [phone] Sodium [Moles/Vol] 139 mmol/L 136-145 [facility] Work Phone: [phone] Triglyceride [Mass/Vol] 191 mg/dL <199 [facility] Work Phone: [phone] Comment on above: The drugs N-Acetylcy steine and Metamizole may falsely depress this assay.Serum Triglycerides Reference Interval Normal <150 mg/dL Borderline high 150 - 199 mg/dL High 200 - 499 mg/dL Very High > or = 500 mg/dL WBC (Bld) [#/Vol] 14.4 10*3/uL 4.4-11.0 [facility] Work Phone: Blood erythrocytes count (nu mber/volume)on 08-03-2022 RBC (Bld) [#/Vol] 4.10 10*6/uL 4.2-5.4 [facility] Work Phone: [phone] Blood hemoglobin measurement (mass/volume)on 08-03-2022 Hemoglobin (Bld) [Mass/Vol] 13.4 g/dL 12.0-15.0 [facility] Work Phone: Blood lymphocytes/100 leukoc yteson 08-03-2022 Lymphocytes/100 WBC (Bld) 31.7 % 19-41 [facility] Work Phone: Blood monocytes/100 leukocyt eson 08-03-2022 Monocytes/100 WBC (Bld) 5.3 % 0-10 [facility] Work Phone: Blood platelet mean volumeon 08-03-2022 Platelet mean volume (Bld) [Entitic vol] 10.2 fL 6.2-12.0 [facility] Work Phone: [phone] Determination of erythrocyte mean corpuscular volume (MCV)on 08-03-2022 MCV (RBC) [Entitic vol] 99.0 fL 81-99 [facility] Work Phone: [phone] Hematocrit Auto (Bld) [Volum e fraction]on 08-03-2022 Hematocrit (Bld) [Volume fraction] 40.6 % 37-47 [facility] Work Phone: [phone] Laboratory - Chemistry and C hemistry - challengeon 08-03-2022 ALP [Catalytic activity/Vol] 87 U/L 45-117 [facility] Work Phone: [phone] ALT [Catalytic activity/Vol] 11 U/L 13-56 [facility] Work Phone: [phone] CO2 [Moles/Vol] 21.0 mmol/L 21.0-32.0 [facility] Work Phone: [phone] Globulin (S) [Mass/Vol] 4.7 g/dL 2.2-4.2 [facility] Work Phone: Urea nitrogen/Creatinine [Mass ratio] 6.3 mg/mg 10-20 [facility] Work Phone: Laboratory - Hematology and Cell countson 08-03-2022 Erythrocyte distribution width (RBC) [Entitic vol] 55.6 fL 35.1-43.9 [facility] Work Phone: Erythrocyte distribution width (RBC) [Ratio] 15.2 % 11.6-14.6 [facility] Work Phone: Immature granulocytes/100 WBC (Bld) 0.600 % 0.0-0.9 [facility] Work Phone: Comment on above: IG% - Immature Granu locytes (promyelocytes, myelocytes and metamyelocytes) > 1% indicates that a LEFT SHIFT is Present. MCH (RBC) [Entitic mass] 32.7 pg 27.0-32.0 [facility] Work Phone: Nucleated RBC/100 WBC (Bld) [Ratio] 0 % 0-5 [facility] Work Phone: MCHC Auto (RBC) [Mass/Vol]on 08-03-2022 MCHC (RBC) [Mass/Vol] 33.0 g/dL 32-36 [facility] Work Phone: No Panel Informationon 08-03 Estimated GFR (MDRD) Amer 42 mL/min >60 [facility] Work Phone: Comment on above: GFR Calc Estimated GFR (MDRD) Non-Af Amer 34 mL/min >60 [facility] Work Phone: Comment on above: Non- GFR Calc Thyroid Stimulating Hormone (TSH) 3.69 uIU/mL 0.358-3.74 [facility] Work Phone: Vitamin D 25-Hydroxy 31.9 ng/mL [facility] Work Phone: Comment on above: Vitamin D 25(OH) Sta tus Range Deficiency <20 ng/mL (50nmol/L) Insufficiency 20 - 30 ng/mL (50 - 75 nmol/L) Sufficiency 30 - 100 ng/mL (75 - 250 nmol/L) Toxicity >100 ng/mL (>250 nmol/L) Platelets bldon 08-03-2022 Platelets (Bld) [#/Vol] 291 10*3/uL 150-450 [facility] Work Phone: Serum or plasma albumin yunior urement (mass/volume)on 08-03-2022 Albumin [Mass/Vol] 2.2 g/dL 3.2-5.0 [facility] Work Phone: Serum or plasma albumin/glob ulin mass ratioon 08-03-2022 Albumin/Globulin [Mass ratio] 0.5 {ratio} 0.9-2.4 [facility] Work Phone: Serum or plasma calcium yunior urement (mass/volume)on 08-03-2022 Calcium [Mass/Vol] 8.4 mg/dL 8.5-10.1 [facility] Work Phone: Serum or plasma cholesterol in HDL measurement (mass/volume)on 08-03-2022 Cholesterol in HDL [Mass/Vol] 28 mg/dL >40 [facility] Work Phone: Comment on above: The drugs N-Acetylcy steine and Metamizole may falsely depress this assay. Reference Range HDL <40 mg/dL Low HDL Cholesterol HDL >or= 60 mg/dL High HDL Cholesterol Serum or plasma cholesterol in VLDL measurement (mass/volume)on 08-03-2022 Cholesterol in VLDL [Mass/Vol] 38 mg/dL 5-40 [facility] Work Phone: Serum or plasma creatinine m easurement (mass/volume)on 08-03-2022 Creatinine [Mass/Vol] 1.58 mg/dL 0.55-1.02 [facility] Work Phone: Comment on above: The validity of the calculated GFR & GFRAA in patients over 70 years has not been determined. Clinical correlation is essential. Serum or plasma low density lipoprotein (LDL) cholesterol measurement (mass/volume)on 08-03-2022 Cholesterol in LDL [Mass/Vol] 84 mg/dL 0-130 [facility] Work Phone: Serum or plasma urea nitroge n measurement (mass/volume)on 08-03-2022 Urea nitrogen [Mass/Vol] 10 mg/dL 7-18 [facility] Work Phone: Thin prep Papanicolaou smear with manual screeningon 08-03-2022 Thin prep Papanicolaou smear with manual screening 12 U/L 15-37 [facility] Work Phone: Thin prep Papanicolaou smear with manual screening 8 5-15 [facility] Work Phone: Absolute lymphocyte counton 08-01-2022 Lymphocytes Auto (Unsp spec) [#/Vol] 2.54 10*3/uL 0.83-4.51 [facility] Work Phone: [phone] Basophil percentageon 2021 Basophils/100 WBC (Bld) 0.4 % 0-1 [facility] Work Phone: Bilirubin [Mass/Vol] 0.40 mg/dL 0.20-1.00 [facility] Work Phone: Comment on above: For patients on eltr ombopag therapy, use of Dimension [place] TBIL is not recommended. Chloride [Moles/Vol] 118 mmol/L 98-107 [facility] Work Phone: Eosinophils/100 WBC (Bld) 0.8 % 0-5 [facility] Work Phone: Glucose [Mass/Vol] 89 mg/dL 74-106 [facility] Work Phone: Neutrophils (Bld) [#/Vol] 6.4 10*3/uL 2.0-7.7 [facility] Work Phone: Neutrophils/100 WBC (Bld) 67.1 % 47-70 [facility] Work Phone: Potassium [Moles/Vol] 3.8 mmol/L 3.5-5.1 [facility] Work Phone: Protein [Mass/Vol] 5.7 g/dL 6.4-8.2 [facility] Work Phone: Sodium [Moles/Vol] 144 mmol/L 136-145 [facility] Work Phone: WBC (Bld) [#/Vol] 9.5 10*3/uL 4.4-11.0 [facility] Work Phone: Blood erythrocytes count (nu mber/volume)on 08-01-2022 RBC (Bld) [#/Vol] 3.68 10*6/uL [facility].2-[facility]: Blood hemoglobin measurement (mass/volume)on 08-01-2022 Hemoglobin (Bld) [Mass/Vol] 11.9 g/dL 12.0-15.0 [facility] Work Phone: Blood lymphocytes/100 leukoc yteson 08-01-2022 Lymphocytes/100 WBC (Bld) 26.7 % 19-41 [facility] Work Phone: Blood monocytes/100 leukocyt eson 08-01-2022 Monocytes/100 WBC (Bld) 4.1 % 0-10 [facility] Work Phone: Blood platelet mean volumeon 08-01-2022 Platelet mean volume (Bld) [Entitic vol] 9.9 fL 6.2-12.0 [facility] Work Phone: [phone] Determination of erythrocyte mean corpuscular volume (MCV)on 08-01-2022 MCV (RBC) [Entitic vol] 101.1 fL 81-99 [facility] Work Phone: Hematocrit Auto (Bld) [Volum e fraction]on 08-01-2022 Hematocrit (Bld) [Volume fraction] 37.2 % 37-47 [facility] Work Phone: [phone] Laboratory - Chemistry and C hemistry - challengeon 08-01-2022 ALP [Catalytic activity/Vol] 61 U/L 45-117 [facility] Work Phone: ALT [Catalytic activity/Vol] 7 U/L 13-56 [facility] Work Phone: CO2 [Moles/Vol] 18.0 mmol/L 21.0-32.0 [facility] Work Phone: Globulin (S) [Mass/Vol] 4.0 g/dL 2.2-4.2 [facility] Work Phone: Urea nitrogen/Creatinine [Mass ratio] 8.8 mg/mg 10-20 [facility] Work Phone: Laboratory - Hematology and Cell countson 08-01-2022 Erythrocyte distribution width (RBC) [Entitic vol] 57.3 fL 35.1-43.9 [facility] Work Phone: Erythrocyte distribution width (RBC) [Ratio] 15.2 % 11.6-14.6 [facility] Work Phone: Immature granulocytes/100 WBC (Bld) 0.900 % 0.0-0.9 [facility] Work Phone: Comment on above: IG% - Immature Granu locytes (promyelocytes, myelocytes and metamyelocytes) > 1% indicates that a LEFT SHIFT is Present. MCH (RBC) [Entitic mass] 32.3 pg 27.0-32.0 [facility] Work Phone: Nucleated RBC/100 WBC (Bld) [Ratio] 0 % 0-5 [facility] Work Phone: MCHC Auto (RBC) [Mass/Vol]on 08-01-2022 MCHC (RBC) [Mass/Vol] 32.0 g/dL 32-36 [facility] Work Phone: No Panel Informationon 08-01 Estimated Creatinine Clearance Calc 31.32 ml/min [facility] Work Phone: Estimated GFR (MDRD) Amer 38 mL/min >60 [facility] Work Phone: Comment on above: GFR Calc Estimated GFR (MDRD) Non-Af Amer 31 mL/min >60 [facility] Work Phone: Comment on above: Non- GFR Calc Platelets bldon 08-01-2022 Platelets (Bld) [#/Vol] 194 10*3/uL 150-450 [facility] Work Phone: Serum or plasma albumin yunior urement (mass/volume)on 08-01-2022 Albumin [Mass/Vol] 1.7 g/dL 3.2-5.0 [facility] Work Phone: Serum or plasma albumin/glob ulin mass ratioon 08-01-2022 Albumin/Globulin [Mass ratio] 0.4 {ratio} 0.9-2.4 [facility] Work Phone: Serum or plasma calcium yunior urement (mass/volume)on 08-01-2022 Calcium [Mass/Vol] 7.7 mg/dL 8.5-10.1 [facility] Work Phone: Serum or plasma creatinine m easurement (mass/volume)on 08-01-2022 Creatinine [Mass/Vol] 1.71 mg/dL 0.55-1.02 [facility] Work Phone: Comment on above: The validity of the calculated GFR & GFRAA in patients over 70 years has not been determined. Clinical correlation is essential. Serum or plasma urea nitroge n measurement (mass/volume)on 08-01-2022 Urea nitrogen [Mass/Vol] 15 mg/dL 7-18 [facility] Work Phone: Thin prep Papanicolaou smear with manual screeningon 08-01-2022 Thin prep Papanicolaou smear with manual screening 7 U/L 15-37 [facility] Work Phone: Thin prep Papanicolaou smear with manual screening 8 5-15 [facility] Work Phone: Basophil percentageon 2021 Basophil percentage 3.3 mg/dL 2.5-4.9 [facility] Work Phone: Laboratory - Chemistry and C hemistry - challengeon 07-31-2022 Magnesium [Mass/Vol] 1.7 mg/dL 1.6-2.[address] [facility] Work Phone: Basophil percentageon 2021 Lactate [Moles/Vol] 1.2 mmol/L 0.4-2.[facility] Work Phone: Basophil percentageon 2021 Basophil percentage 25-50 SEEN /hpf 0-5 [facility] Work Phone: Bilirubin Test strip Ql (U)o n 07-29-2022 Bilirubin Ql (U) Negative Negative [facility] Work Phone: Blood manual differential co mment interpretation (narrative result)on 07-29-2022 Manual differential comment Pollo (Bld) [Interp] SCANNED [facility] Work Phone: Comment on above: NEUTROPHILIA NOTED Ketones Test strip Ql (U)on 07-29-2022 Ketones Ql (U) Negative Negative [facility] Work Phone: Mucus LM Ql (Urine sed)on Mucus Ql (Urine sed) 0 SEEN /hpf [facility] Work Phone: Nitrite Test strip Ql (U)on 07-29-2022 Nitrite Ql (U) Negative Negative [facility] Work Phone: Protein Test strip Ql (U)on 07-29-2022 Protein Ql (U) 500 mg/dl Negative [facility] Work Phone: Squamous epithelial cells de tection in urine sediment by light microscopyon 07-29-2022 Epithelial cells.squamous LM Ql (Urine sed) 0-5 SEEN /hpf 5-10 [facility] Work Phone: Urine blood detectionon 07-20-2021 RBC Ql (U) 250 /ul Negative [facility] Work Phone: RBC Ql (U) 5-10 SEEN /hpf 0-5 [facility] Work Phone: Urine clarityon 07-29-2022 Clarity (U) Clear Clear [facility] Work Phone: Urine color determinationon 07-29-2022 Color (U) Yellow Yellow [facility] Work Phone: Urine glucose detectionon Glucose Ql (U) Normal mg/dl Normal [facility] Work Phone: Urine leukocyte esterase det ection by dipstickon 07-29-2022 Leukocyte esterase Test strip Ql (U) 500 /ul Negative [facility] Work Phone: Urine pHon 07-29-2022 pH (U) 6.5 [pH] 5.0 - 8.0 [facility] Work Phone: Urine sediment bacteria coun t by microscopy (number/high power field)on 07-29-2022 Bacteria LM.HPF (Urine sed) [#/Area] 1 /[HPF] None Seen [facility] Work Phone: [phone] Urine specific gravity measu rementon 07-29-2022 Specific gravity (U) [Rel density] 1.010 1.002-1.03 0 [facility] Work Phone: Urobilinogen Auto test strip Ql (U)on 07-29-2022 Urobilinogen Ql (U) Normal mg/dl Normal [facility] Work Phone: [phone] Basophil percentageon 2021 Basophil percentage 3.2 mg/dL 2.5-4.9 [facility] Work Phone: [phone] Chloride [Moles/Vol] 107 mmol/L 98-107 [facility] Work Phone: Glucose [Mass/Vol] 100 mg/dL 74-106 [facility] Work Phone: Comment on above: Fasting Glucose resu lt from 100 to 125 mg/dL suggests IMPAIRED HOMEOSTASIS per A.D.A. criteria. Potassium [Moles/Vol] 3.9 mmol/L 3.5-5.1 [facility] Work Phone: [phone] Sodium [Moles/Vol] 141 mmol/L 136-145 [facility] Work Phone: [phone] WBC (Bld) [#/Vol] 13.8 10*3/uL 4.4-11.0 [facility] Work Phone: Blood erythrocytes count (nu mber/volume)on 07-21-2022 RBC (Bld) [#/Vol] 4.69 10*6/uL 4.2-5.4 [facility] Work Phone: Blood hemoglobin measurement (mass/volume)on 07-21-2022 Hemoglobin (Bld) [Mass/Vol] 15.3 g/dL 12.0-15.0 [facility] Work Phone: [phone] Blood platelet mean volumeon 07-21-2022 Platelet mean volume (Bld) [Entitic vol] 9.9 fL 6.2-12.0 [facility] Work Phone: Determination of erythrocyte mean corpuscular volume (MCV)on 07-21-2022 MCV (RBC) [Entitic vol] 99.8 fL 81-99 [facility] Work Phone: [phone] Hematocrit Auto (Bld) [Volum e fraction]on 07-21-2022 Hematocrit (Bld) [Volume fraction] 46.8 % 37-47 [facility] Work Phone: Laboratory - Chemistry and C hemistry - challengeon 07-21-2022 CO2 [Moles/Vol] 25.0 mmol/L 21.0-32.0 [facility] Work Phone: Urea nitrogen/Creatinine [Mass ratio] 11.4 mg/mg 10-20 [facility] Work Phone: [phone] Laboratory - Hematology and Cell countson 07-21-2022 Erythrocyte distribution width (RBC) [Entitic vol] 52.1 fL 35.1-43.9 [facility] Work Phone: [phone] Erythrocyte distribution width (RBC) [Ratio] 14.2 % 11.6-14.6 [facility] Work Phone: [phone] MCH (RBC) [Entitic mass] 32.6 pg 27.0-32.0 [facility] Work Phone: [phone] MCHC Auto (RBC) [Mass/Vol]on 07-21-2022 MCHC (RBC) [Mass/Vol] 32.7 g/dL 32-36 [facility] Work Phone: No Panel Informationon 07-21 Estimated GFR (MDRD) Amer 35 mL/min >60 [facility] Work Phone: Comment on above: GFR Calc Estimated GFR (MDRD) Non-Af Amer 29 mL/min >60 [facility] Work Phone: Comment on above: Non- GFR Calc Parathyroid Hormone (Intact) 217.2 pg/mL 18.4-80.1 [facility] Work Phone: Platelets bldon 07-21-2022 Platelets (Bld) [#/Vol] 327 10*3/uL 150-450 [facility] Work Phone: Serum or plasma albumin yunior urement (mass/volume)on 07-21-2022 Albumin [Mass/Vol] 2.8 g/dL 3.2-5.0 [facility] Work Phone: Serum or plasma calcium yunior urement (mass/volume)on 07-21-2022 Calcium [Mass/Vol] 8.5 mg/dL 8.5-10.1 [facility] Work Phone: Serum or plasma creatinine m easurement (mass/volume)on 07-21-2022 Creatinine [Mass/Vol] 1.85 mg/dL 0.55-1.02 [facility] Work Phone: Comment on above: The validity of the calculated GFR & GFRAA in patients over 70 years has not been determined. Clinical correlation is essential. Serum or plasma urea nitroge n measurement (mass/volume)on 07-21-2022 Urea nitrogen [Mass/Vol] 21 mg/dL 7-18 [facility] Work Phone: Absolute lymphocyte counton 07-04-2022 Lymphocytes Auto (Unsp spec) [#/Vol] 7.15 10*3/uL 0.83-4.51 [facility] Work Phone: Basophil percentageon 2021 Basophils/100 WBC (Bld) 0.5 % 0-1 [facility] Work Phone: Bilirubin [Mass/Vol] 0.50 mg/dL 0.20-1.00 [facility] Work Phone: Comment on above: For patients on eltr ombopag therapy, use of Dim[employer] [place] TBIL is not recommended. Chloride [Moles/Vol] 109 mmol/L 98-107 [facility] Work Phone: Eosinophils/100 WBC (Bld) 0.7 % 0-5 [facility] Work Phone: Glucose [Mass/Vol] 104 mg/dL 74-106 [facility] Work Phone: [phone] Comment on above: Fasting Glucose resu lt from 100 to 125 mg/dL suggests IMPAIRED HOMEOSTASIS per A.D.A. criteria. Neutrophils (Bld) [#/Vol] 8.1 10*3/uL 2.0-7.7 [facility] Work Phone: Neutrophils/100 WBC (Bld) 48.9 % 47-70 [facility] Work Phone: Potassium [Moles/Vol] 3.8 mmol/L 3.5-5.1 [facility] Work Phone: Protein [Mass/Vol] 7.4 g/dL 6.4-8.2 [facility] Work Phone: Sodium [Moles/Vol] 139 mmol/L 136-145 [facility] Work Phone: WBC (Bld) [#/Vol] 16.6 10*3/uL 4.4-11.0 [facility] Work Phone: Blood erythrocytes count (nu mber/volume)on 07-04-2022 RBC (Bld) [#/Vol] 4.69 10*6/uL 4.2-5.4 [facility] Work Phone: Blood hemoglobin measurement (mass/volume)on 07-04-2022 Hemoglobin (Bld) [Mass/Vol] 15.1 g/dL 12.0-15.0 [facility] Work Phone: [phone] Blood lymphocytes/100 leukoc yteson 07-04-2022 Lymphocytes/100 WBC (Bld) 43.0 % 19-41 [facility] Work Phone: Blood manual differential co mment interpretation (narrative result)on 07-04-2022 Manual differential comment Pollo (Bld) [Interp] COMMENT [facility] Work Phone: Comment on above: LYMPHOCYTOSIS. Blood monocytes/100 leukocyt eson 07-04-2022 Monocytes/100 WBC (Bld) 6.4 % 0-10 [facility] Work Phone: [phone] Blood platelet mean volumeon 07-04-2022 Platelet mean volume (Bld) [Entitic vol] 9.4 fL 6.2-12.0 [facility] Work Phone: Determination of erythrocyte mean corpuscular volume (MCV)on 07-04-2022 MCV (RBC) [Entitic vol] 98.7 fL 81-99 [facility] Work Phone: Hematocrit Auto (Bld) [Volum e fraction]on 07-04-2022 Hematocrit (Bld) [Volume fraction] 46.3 % 37-47 [facility] Work Phone: Laboratory - Chemistry and C hemistry - challengeon 07-04-2022 ALP [Catalytic activity/Vol] 82 U/L 45-117 [facility] Work Phone: [phone] ALT [Catalytic activity/Vol] 12 U/L 13-56 [facility] Work Phone: [phone] CO2 [Moles/Vol] 25.0 mmol/L 21.0-32.0 [facility] Work Phone: [phone] Globulin (S) [Mass/Vol] 4.7 g/dL 2.2-4.2 [facility] Work Phone: Urea nitrogen/Creatinine [Mass ratio] 7.5 mg/mg 10-20 [facility] Work Phone: Laboratory - Hematology and Cell countson 07-04-2022 Erythrocyte distribution width (RBC) [Entitic vol] 51.2 fL 35.1-43.9 [facility] Work Phone: Erythrocyte distribution width (RBC) [Ratio] 14.3 % 11.6-14.6 [facility] Work Phone: Immature granulocytes/100 WBC (Bld) 0.500 % 0.0-0.9 [facility] Work Phone: Comment on above: IG% - Immature Granu locytes (promyelocytes, myelocytes and metamyelocytes) > 1% indicates that a LEFT SHIFT is Present. MCH (RBC) [Entitic mass] 32.2 pg 27.0-32.0 [facility] Work Phone: Nucleated RBC/100 WBC (Bld) [Ratio] 0 % 0-5 [facility] Work Phone: MCHC Auto (RBC) [Mass/Vol]on 07-04-2022 MCHC (RBC) [Mass/Vol] 32.6 g/dL 32-36 [facility] Work Phone: No Panel Informationon 07-04 Estimated GFR (MDRD) Amer 34 mL/min >60 [facility] Work Phone: Comment on above: GFR Calc Estimated GFR (MDRD) Non-Af Amer 28 mL/min >60 [facility] Work Phone: Comment on above: Non- GFR Calc Platelets bldon 07-04-2022 Platelets (Bld) [#/Vol] 321 10*3/uL 150-450 [facility] Work Phone: Serum or plasma albumin yunior urement (mass/volume)on 07-04-2022 Albumin [Mass/Vol] 2.7 g/dL 3.2-5.0 [facility] Work Phone: Serum or plasma albumin/glob ulin mass ratioon 07-04-2022 Albumin/Globulin [Mass ratio] 0.6 {ratio} 0.9-2.4 [facility] Work Phone: Serum or plasma calcium yunior urement (mass/volume)on 07-04-2022 Calcium [Mass/Vol] 8.6 mg/dL 8.5-10.1 [facility] Work Phone: Serum or plasma creatinine m easurement (mass/volume)on 07-04-2022 Creatinine [Mass/Vol] 1.87 mg/dL 0.55-1.02 [facility] Work Phone: Comment on above: The validity of the calculated GFR & GFRAA in patients over 70 years has not been determined. Clinical correlation is essential. Serum or plasma urea nitroge n measurement (mass/volume)on 07-04-2022 Urea nitrogen [Mass/Vol] 14 mg/dL 7-18 [facility] Work Phone: Thin prep Papanicolaou smear with manual screeningon 07-04-2022 Thin prep Papanicolaou smear with manual screening 8 U/L 15-37 [facility] Work Phone: Thin prep Papanicolaou smear with manual screening 5 5-15 [facility] Work Phone: Thin prep Papanicolaou smear with manual screening 165 U/L 84-246 [facility] Work Phone: Laboratory - Microbiology an d Antimicrobial susceptibilityon 05-12-2022 SARS-CoV-2 (COVID-19) RNA BOBBI+probe Ql (Unsp spec) Not detected Not Detect [facility] Work Phone: Comment on above: Normal Reference Ran ge: Not DetectedMethod:(RT-PCR) real-time reverse transcriptase PCRLuminex DAILY Instrument*The Food and Drug Administration (FDA) has issued an Emergency Use Authorization (EAU) for the [place] SARS-CoV-2 Assay for the rapid detection of [...] Auto (Unsp spec) [#/Vol] 7.41 10*3/uL 0.83-4.51 [facility] Work Phone: [phone] Basophil percentageon 2021 Basophils/100 WBC (Bld) 0.5 % 0-1 [facility] Work Phone: Bilirubin [Mass/Vol] 0.50 mg/dL 0.20-1.00 [facility] Work Phone: [phone] Comment on above: For patients on eltr ombopag therapy, use of Dimension [place] TBIL is not recommended. Chloride [Moles/Vol] 108 mmol/L 98-107 [facility] Work Phone: [phone] Cholesterol [Mass/Vol] 188 mg/dL <200 [facility] Work Phone: [phone] Comment on above: <200 mg/dL Desirable 200-240 mg/dL Borderline >240 mg/dL High Risk Eosinophils/100 WBC (Bld) 0.6 % 0-5 [facility] Work Phone: [phone] Glucose [Mass/Vol] 99 mg/dL 74-106 [facility] Work Phone: [phone] Neutrophils (Bld) [#/Vol] 7.0 10*3/uL 2.0-7.7 [facility] Work Phone: Neutrophils/100 WBC (Bld) 45.2 % 47-70 [facility] Work Phone: Potassium [Moles/Vol] 4.3 mmol/L 3.5-5.1 [facility] Work Phone: [phone] Protein [Mass/Vol] 7.6 g/dL 6.4-8.2 [facility] Work Phone: [phone] Sodium [Moles/Vol] 140 mmol/L 136-145 [facility] Work Phone: Triglyceride [Mass/Vol] 97 mg/dL <199 [facility] Work Phone: Comment on above: The drugs N-Acetylcy steine and Metamizole may falsely depress this assay.Serum Triglycerides Reference Interval Normal <150 mg/dL Borderline high 150 - 199 mg/dL High 200 - 499 mg/dL Very High > or = 500 mg/dL WBC (Bld) [#/Vol] 15.6 10*3/uL 4.4-11.0 [facility] Work Phone: Blood erythrocytes count (nu mber/volume)on 05-02-2022 RBC (Bld) [#/Vol] 4.60 10*6/uL 4.2-5.4 [facility] Work Phone: Blood hemoglobin measurement (mass/volume)on 05-02-2022 Hemoglobin (Bld) [Mass/Vol] 14.9 g/dL 12.0-15.0 [facility] Work Phone: Blood lymphocytes/100 leukoc yteson 05-02-2022 Lymphocytes/100 WBC (Bld) 47.6 % 19-41 [facility] Work Phone: Blood manual differential co mment interpretation (narrative result)on 05-02-2022 Manual differential comment Pollo (Bld) [Interp] COMMENT [facility] Work Phone: Comment on above: LYMPHOCYTOSIS. Blood monocytes/100 leukocyt eson 05-02-2022 Monocytes/100 WBC (Bld) 5.8 % 0-10 [facility] Work Phone: Blood platelet mean volumeon 05-02-2022 Platelet mean volume (Bld) [Entitic vol] 10.3 fL 6.2-12.0 [facility] Work Phone: Determination of erythrocyte mean corpuscular volume (MCV)on 05-02-2022 MCV (RBC) [Entitic vol] 99.1 fL 81-99 [facility] Work Phone: Hematocrit Auto (Bld) [Volum e fraction]on 05-02-2022 Hematocrit (Bld) [Volume fraction] 45.6 % 37-47 [facility] Work Phone: [phone] Laboratory - Chemistry and C hemistry - challengeon 05-02-2022 ALP [Catalytic activity/Vol] 104 U/L 45-117 [facility] Work Phone: ALT [Catalytic activity/Vol] 17 U/L 13-56 [facility] Work Phone: CO2 [Moles/Vol] 25.0 mmol/L 21.0-32.0 [facility] Work Phone: [phone] Globulin (S) [Mass/Vol] 4.8 g/dL 2.2-4.2 [facility] Work Phone: [phone] Urea nitrogen/Creatinine [Mass ratio] 6.8 mg/mg 10-20 [facility] Work Phone: [phone] Laboratory - Hematology and Cell countson 05-02-2022 Erythrocyte distribution width (RBC) [Entitic vol] 50.5 fL 35.1-43.9 [facility] Work Phone: [phone] Erythrocyte distribution width (RBC) [Ratio] 13.9 % 11.6-14.6 [facility] Work Phone: [phone] Immature granulocytes/100 WBC (Bld) 0.300 % 0.0-0.9 [facility] Work Phone: [phone] Comment on above: IG% - Immature Granu locytes (promyelocytes, myelocytes and metamyelocytes) > 1% indicates that a LEFT SHIFT is Present. MCH (RBC) [Entitic mass] 32.4 pg 27.0-32.0 [facility] Work Phone: [phone] Nucleated RBC/100 WBC (Bld) [Ratio] 0 % 0-5 [facility] Work Phone: [phone] MCHC Auto (RBC) [Mass/Vol]on 05-02-2022 MCHC (RBC) [Mass/Vol] 32.7 g/dL 32-36 [facility] Work Phone: No Panel Informationon 05-02 Estimated GFR (MDRD) Amer 31 mL/min >60 [facility] Work Phone: Comment on above: GFR Calc Estimated GFR (MDRD) Non-Af Amer 26 mL/min >60 [facility] Work Phone: Comment on above: Non- GFR Calc Thyroid Stimulating Hormone (TSH) 3.28 uIU/mL 0.358-3.74 [facility] Work Phone: Vitamin D 25-Hydroxy 44.1 ng/mL [facility] Work Phone: Comment on above: Vitamin D 25(OH) Sta tus Range Deficiency <20 ng/mL (50nmol/L) Insufficiency 20 - 30 ng/mL (50 - 75 nmol/L) Sufficiency 30 - 100 ng/mL (75 - 250 nmol/L) Toxicity >100 ng/mL (>250 nmol/L) Platelets bldon 05-02-2022 Platelets (Bld) [#/Vol] 351 10*3/uL 150-450 [facility] Work Phone: Serum or plasma albumin yunior urement (mass/volume)on 05-02-2022 Albumin [Mass/Vol] 2.8 g/dL 3.2-5.0 [facility] Work Phone: Serum or plasma albumin/glob ulin mass ratioon 05-02-2022 Albumin/Globulin [Mass ratio] 0.6 {ratio} 0.9-2.4 [facility] Work Phone: Serum or plasma calcium yunior urement (mass/volume)on 05-02-2022 Calcium [Mass/Vol] 8.6 mg/dL 8.5-10.1 [facility] Work Phone: Serum or plasma cholesterol in HDL measurement (mass/volume)on 05-02-2022 Cholesterol in HDL [Mass/Vol] 43 mg/dL >40 [facility] Work Phone: Comment on above: The drugs N-Acetylcy steine and Metamizole may falsely depress this assay. Reference Range HDL <40 mg/dL Low HDL Cholesterol HDL >or= 60 mg/dL High HDL Cholesterol Serum or plasma cholesterol in VLDL measurement (mass/volume)on 05-02-2022 Cholesterol in VLDL [Mass/Vol] 19 mg/dL 5-40 [facility] Work Phone: Serum or plasma creatinine m easurement (mass/volume)on 05-02-2022 Creatinine [Mass/Vol] 2.05 mg/dL 0.55-1.02 [facility] Work Phone: Comment on above: The validity of the calculated GFR & GFRAA in patients over 70 years has not been determined. Clinical correlation is essential. Serum or plasma low density lipoprotein (LDL) cholesterol measurement (mass/volume)on 05-02-2022 Cholesterol in LDL [Mass/Vol] 126 mg/dL 0-130 [facility] Work Phone: Serum or plasma urea nitroge n measurement (mass/volume)on 05-02-2022 Urea nitrogen [Mass/Vol] 14 mg/dL 7-18 [facility] Work Phone: Thin prep Papanicolaou smear with manual screeningon 05-02-2022 Thin prep Papanicolaou smear with manual screening 12 U/L 15-37 [facility] Work Phone: Thin prep Papanicolaou smear with manual screening 7 5-15 [facility] Work Phone: Basophil percentageon 2021 Basophil percentage 3.4 mg/dL 2.5-4.9 [place] [facility] Work Phone: [phone] Chloride [Moles/Vol] 105 mmol/L 98-[address] [facility] [facility] Work Phone: [phone] Glucose [Mass/Vol] 96 mg/dL 74-106 [facility] Work Phone: [phone] Potassium [Moles/Vol] 4.3 mmol/L 3.5-5.1 [facility] Work Phone: Sodium [Moles/Vol] 138 mmol/L 136-145 [place] [facility] Work Phone: WBC (Bld) [#/Vol] 13.9 10*3/uL 4.4-11.0 [facility] Work Phone: [phone] Blood erythrocytes count (nu mber/volume)on 03-15-2022 RBC (Bld) [#/Vol] 4.70 10*6/uL 4.2-5.4 [facility] Work Phone: [phone] Blood hemoglobin measurement (mass/volume)on 03-15-2022 Hemoglobin (Bld) [Mass/Vol] 15.1 g/dL 12.0-15.0 [facility] Work Phone: [phone] Blood platelet mean volumeon 03-15-2022 Platelet mean volume (Bld) [Entitic vol] 10.3 fL 6.2-12.0 [facility] Work Phone: [phone] Determination of erythrocyte mean corpuscular volume (MCV)on 03-15-2022 MCV (RBC) [Entitic vol] 99.6 fL 81-99 [facility] Work Phone: [phone] Hematocrit Auto (Bld) [Volum e fraction]on 03-15-2022 Hematocrit (Bld) [Volume fraction] 46.8 % 37-47 [facility] Work Phone: Laboratory - Chemistry and C hemistry - challengeon 03-15-2022 CO2 [Moles/Vol] 27.0 mmol/L 21.0-32.0 [facility] Work Phone: [phone] Urea nitrogen/Creatinine [Mass ratio] 7.4 mg/mg 10-20 [facility] Work Phone: [phone] Laboratory - Hematology and Cell countson 03-15-2022 Erythrocyte distribution width (RBC) [Entitic vol] 51.3 fL 35.1-43.9 [facility] Work Phone: [phone] Erythrocyte distribution width (RBC) [Ratio] 14.0 % 11.6-14.6 [facility] Work Phone: [phone] MCH (RBC) [Entitic mass] 32.1 pg 27.0-32.0 [facility] Work Phone: MCHC Auto (RBC) [Mass/Vol]on 03-15-2022 MCHC (RBC) [Mass/Vol] 32.3 g/dL 32-36 [facility] Work Phone: No Panel Informationon 03-15 Estimated GFR (MDRD) Amer 31 mL/min >60 [facility] Work Phone: Comment on above: GFR Calc Estimated GFR (MDRD) Non-Af Amer 26 mL/min >60 [facility] Work Phone: Comment on above: Non- GFR Calc Parathyroid Hormone (Intact) 151.1 pg/mL 18.4-80.1 [facility] Work Phone: Vitamin D 25-Hydroxy 31.6 ng/mL [facility] Work Phone: Comment on above: Vitamin D 25(OH) Sta tus Range Deficiency <20 ng/mL (50nmol/L) Insufficiency 20 - 30 ng/mL (50 - 75 nmol/L) Sufficiency 30 - 100 ng/mL (75 - 250 nmol/L) Toxicity >100 ng/mL (>250 nmol/L) Platelets bldon 03-15-2022 Platelets (Bld) [#/Vol] 327 10*3/uL 150-450 [facility] Work Phone: Serum or plasma albumin yunior urement (mass/volume)on 03-15-2022 Albumin [Mass/Vol] 2.9 g/dL 3.2-5.0 [facility] Work Phone: Serum or plasma calcium yunior urement (mass/volume)on 03-15-2022 Calcium [Mass/Vol] 8.5 mg/dL 8.5-10.1 [facility] Work Phone: Serum or plasma creatinine m easurement (mass/volume)on 03-15-2022 Creatinine [Mass/Vol] 2.04 mg/dL 0.55-1.02 [facility] Work Phone: Comment on above: The validity of the calculated GFR & GFRAA in patients over 70 years has not been determined. Clinical correlation is essential. Serum or plasma urea nitroge n measurement (mass/volume)on 03-15-2022 Urea nitrogen [Mass/Vol] 15 mg/dL 7-18 [facility] Work Phone: Culture, urineon 02-16-2022 Bacteria identified Cx Nom (U) Mixed Gram Pos & Gram Neg Org [facility] Work Phone: Absolute lymphocyte counton 01-26-2022 Lymphocytes Auto (Unsp spec) [#/Vol] 8.09 10*3/uL 0.83-4.51 [facility] Work Phone: Basophil percentageon 2021 Basophils/100 WBC (Bld) 0.4 % 0-1 [facility] Work Phone: Chloride [Moles/Vol] 106 mmol/L 98-107 [facility] Work Phone: Eosinophils/100 WBC (Bld) 0.4 % 0-5 [facility] Work Phone: Glucose [Mass/Vol] 104 mg/dL 74-106 [facility] Work Phone: Comment on above: Fasting Glucose resu lt from 100 to 125 mg/dL suggests IMPAIRED HOMEOSTASIS per A.D.A. criteria. Neutrophils (Bld) [#/Vol] 8.7 10*3/uL 2.0-7.7 [facility] Work Phone: Neutrophils/100 WBC (Bld) 48.3 % 47-70 [facility] Work Phone: Potassium [Moles/Vol] 3.5 mmol/L 3.5-5.1 [facility] Work Phone: Sodium [Moles/Vol] 140 mmol/L 136-145 [facility] Work Phone: WBC (Bld) [#/Vol] 18.1 10*3/uL 4.4-11.0 [facility] Work Phone: Blood erythrocytes count (nu mber/volume)on 01-26-2022 RBC (Bld) [#/Vol] 4.70 10*6/uL 4.2-5.4 [facility] Work Phone: Blood hemoglobin measurement (mass/volume)on 01-26-2022 Hemoglobin (Bld) [Mass/Vol] 15.2 g/dL 12.0-15.0 [facility] Work Phone: Blood lymphocytes/100 leukoc yteson 01-26-2022 Lymphocytes/100 WBC (Bld) 44.7 % 19-41 [facility] Work Phone: Blood manual differential co mment interpretation (narrative result)on 01-26-2022 Manual differential comment Pollo (Bld) [Interp] SCANNED [facility] Work Phone: Comment on above: LYMPHOCYTOSIS NOTED Blood monocytes/100 leukocyt eson 01-26-2022 Monocytes/100 WBC (Bld) 5.3 % 0-10 [facility] Work Phone: Blood platelet mean volumeon 01-26-2022 Platelet mean volume (Bld) [Entitic vol] 10.3 fL 6.2-12.0 [facility] Work Phone: Determination of erythrocyte mean corpuscular volume (MCV)on 01-26-2022 MCV (RBC) [Entitic vol] 97.2 fL 81-99 [facility] Work Phone: Hematocrit Auto (Bld) [Volum e fraction]on 01-26-2022 Hematocrit (Bld) [Volume fraction] 45.7 % 37-47 [facility] Work Phone: Laboratory - Chemistry and C hemistry - challengeon 01-26-2022 CO2 [Moles/Vol] 26.0 mmol/L 21.0-32.0 [facility] Work Phone: Natriuretic peptide B (Bld) [Mass/Vol] 100.1 pg/mL 0-100 [facility] Work Phone: Urea nitrogen/Creatinine [Mass ratio] 13.4 mg/mg 10-20 [facility] Work Phone: Laboratory - Hematology and Cell countson 01-26-2022 Erythrocyte distribution width (RBC) [Entitic vol] 49.8 fL 35.1-43.9 [facility] Work Phone: Erythrocyte distribution width (RBC) [Ratio] 14.0 % 11.6-14.6 [facility] Work Phone: Immature granulocytes/100 WBC (Bld) 0.900 % 0.0-0.9 [facility] Work Phone: Comment on above: IG% - Immature Granu locytes (promyelocytes, myelocytes and metamyelocytes) > 1% indicates that a LEFT SHIFT is Present. MCH (RBC) [Entitic mass] 32.3 pg 27.0-32.0 [facility] Work Phone: Nucleated RBC/100 WBC (Bld) [Ratio] 0 % 0-5 [facility] Work Phone: MCHC Auto (RBC) [Mass/Vol]on 01-26-2022 MCHC (RBC) [Mass/Vol] 33.3 g/dL 32-36 [facility] Work Phone: No Panel Informationon 01-26 Estimated GFR (MDRD) Amer 34 mL/min >60 [facility] Work Phone: Comment on above: GFR Calc Estimated GFR (MDRD) Non-Af Amer 28 mL/min >60 [facility] Work Phone: Comment on above: Non- GFR Calc Platelets bldon 01-26-2022 Platelets (Bld) [#/Vol] 346 10*3/uL 150-450 [facility] Work Phone: Serum or plasma calcium yunior urement (mass/volume)on 01-26-2022 Calcium [Mass/Vol] 8.5 mg/dL 8.5-10.1 [facility] Work Phone: Serum or plasma creatinine m easurement (mass/volume)on 01-26-2022 Creatinine [Mass/Vol] 1.87 mg/dL 0.55-1.02 [facility] Work Phone: Comment on above: The validity of the calculated GFR & GFRAA in patients over 70 years has not been determined. Clinical correlation is essential. Serum or plasma urea nitroge n measurement (mass/volume)on 01-26-2022 Urea nitrogen [Mass/Vol] 25 mg/dL 7-18 [facility] Work Phone: Thin prep Papanicolaou smear with manual screeningon 01-26-2022 Thin prep Papanicolaou smear with manual screening 8 5-15 [facility] Work Phone: [phone] Absolute lymphocyte counton 01-19-2022 Lymphocytes Auto (Unsp spec) [#/Vol] 5.62 10*3/uL 0.83-4.51 [facility] Work Phone: Basophil percentageon 2021 Basophils/100 WBC (Bld) 0.6 % 0-1 [facility] Work Phone: Bilirubin [Mass/Vol] 0.30 mg/dL 0.20-1.00 [facility] Work Phone: Comment on above: For patients on eltr ombopag therapy, use of Dimension [place] TBIL is not recommended. Chloride [Moles/Vol] 107 mmol/L 98-107 [facility] Work Phone: Cholesterol [Mass/Vol] 197 mg/dL <200 [facility] Work Phone: Comment on above: <200 mg/dL Desirable 200-240 mg/dL Borderline >240 mg/dL High Risk Eosinophils/100 WBC (Bld) 1.6 % 0-5 [facility] Work Phone: [phone] Glucose [Mass/Vol] 92 mg/dL 74-106 [facility] Work Phone: [phone] Neutrophils (Bld) [#/Vol] 5.2 10*3/uL 2.0-7.7 [facility] Work Phone: [phone] Neutrophils/100 WBC (Bld) 43.8 % 47-70 [facility] Work Phone: Potassium [Moles/Vol] 4.0 mmol/L 3.5-5.1 [facility] Work Phone: Protein [Mass/Vol] 7.9 g/dL 6.4-8.2 [facility] Work Phone: Sodium [Moles/Vol] 138 mmol/L 136-145 [facility] Work Phone: Triglyceride [Mass/Vol] 160 mg/dL <199 [facility] Work Phone: Comment on above: The drugs N-Acetylcy steine and Metamizole may falsely depress this assay.Serum Triglycerides Reference Interval Normal <150 mg/dL Borderline high 150 - 199 mg/dL High 200 - 499 mg/dL Very High > or = 500 mg/dL WBC (Bld) [#/Vol] 11.9 10*3/uL 4.4-11.0 [facility] Work Phone: Blood erythrocytes count (nu mber/volume)on 01-19-2022 RBC (Bld) [#/Vol] 4.47 10*6/uL 4.2-5.4 [facility] Work Phone: Blood hemoglobin measurement (mass/volume)on 01-19-2022 Hemoglobin (Bld) [Mass/Vol] 14.3 g/dL 12.0-15.0 [facility] Work Phone: Blood lymphocytes/100 leukoc yteson 01-19-2022 Lymphocytes/100 WBC (Bld) 47.3 % 19-41 [facility] Work Phone: Blood manual differential co mment interpretation (narrative result)on 01-19-2022 Manual differential comment Pollo (Bld) [Interp] See comment [facility] Work Phone: Comment on above: LYMPHOCYTOSIS Blood monocytes/100 leukocyt eson 01-19-2022 Monocytes/100 WBC (Bld) 6.2 % 0-10 [facility] Work Phone: Blood platelet mean volumeon 01-19-2022 Platelet mean volume (Bld) [Entitic vol] 10.8 fL 6.2-12.0 [facility] Work Phone: Culture, urineon 01-19-2022 Bacteria identified Cx Nom (U) Mixed Gram Pos & Gram Neg Org [facility] Work Phone: Determination of erythrocyte mean corpuscular volume (MCV)on 01-19-2022 MCV (RBC) [Entitic vol] 100.4 fL 81-99 [facility] Work Phone: [phone] Hematocrit Auto (Bld) [Volum e fraction]on 01-19-2022 Hematocrit (Bld) [Volume fraction] 44.9 % 37-47 [facility] Work Phone: Laboratory - Chemistry and C hemistry - challengeon 01-19-2022 ALP [Catalytic activity/Vol] 114 U/L 45-117 [facility] Work Phone: ALT [Catalytic activity/Vol] 19 U/L 13-56 [facility] Work Phone: CO2 [Moles/Vol] 25.0 mmol/L 21.0-32.0 [facility] Work Phone: Globulin (S) [Mass/Vol] 5.2 g/dL 2.2-4.2 [facility] Work Phone: [phone] Urea nitrogen/Creatinine [Mass ratio] 12.5 mg/mg 10-20 [facility] Work Phone: Laboratory - Hematology and Cell countson 01-19-2022 Erythrocyte distribution width (RBC) [Entitic vol] 49.8 fL 35.1-43.9 [facility] Work Phone: [phone] Erythrocyte distribution width (RBC) [Ratio] 13.6 % 11.6-14.6 [facility] Work Phone: [phone] Immature granulocytes/100 WBC (Bld) 0.500 % 0.0-0.9 [facility] Work Phone: Comment on above: IG% - Immature Granu locytes (promyelocytes, myelocytes and metamyelocytes) > 1% indicates that a LEFT SHIFT is Present. MCH (RBC) [Entitic mass] 32.0 pg 27.0-32.0 [facility] Work Phone: Nucleated RBC/100 WBC (Bld) [Ratio] 0 % 0-5 [facility] Work Phone: MCHC Auto (RBC) [Mass/Vol]on 01-19-2022 MCHC (RBC) [Mass/Vol] 31.8 g/dL 32-36 [facility] Work Phone: No Panel Informationon 01-19 Estimated GFR (MDRD) Amer 33 mL/min >60 [facility] Work Phone: Comment on above: GFR Calc Estimated GFR (MDRD) Non-Af Amer 28 mL/min >60 [facility] Work Phone: Comment on above: Non- GFR Calc Thyroid Stimulating Hormone (TSH) 3.68 uIU/mL 0.358-3.74 [facility] Work Phone: Vitamin D 25-Hydroxy 33.2 ng/mL [facility] Work Phone: Comment on above: Vitamin D 25(OH) Sta tus Range Deficiency <20 ng/mL (50nmol/L) Insufficiency 20 - 30 ng/mL (50 - 75 nmol/L) Sufficiency 30 - 100 ng/mL (75 - 250 nmol/L) Toxicity >100 ng/mL (>250 nmol/L) Platelets bldon 01-19-2022 Platelets (Bld) [#/Vol] 378 10*3/uL 150-450 [facility] Work Phone: Serum or plasma albumin yunior urement (mass/volume)on 01-19-2022 Albumin [Mass/Vol] 2.7 g/dL 3.2-5.0 [facility] Work Phone: Serum or plasma albumin/glob ulin mass ratioon 01-19-2022 Albumin/Globulin [Mass ratio] 0.5 {ratio} 0.9-2.4 [facility] Work Phone: Serum or plasma calcium yunior urement (mass/volume)on 01-19-2022 Calcium [Mass/Vol] 8.8 mg/dL 8.5-10.1 [facility] Work Phone: Serum or plasma cholesterol in HDL measurement (mass/volume)on 01-19-2022 Cholesterol in HDL [Mass/Vol] 38 mg/dL >40 [facility] Work Phone: Comment on above: The drugs N-Acetylcy steine and Metamizole may falsely depress this assay. Reference Range HDL <40 mg/dL Low HDL Cholesterol HDL >or= 60 mg/dL High HDL Cholesterol Serum or plasma cholesterol in VLDL measurement (mass/volume)on 01-19-2022 Cholesterol in VLDL [Mass/Vol] 32 mg/dL 5-40 [facility] Work Phone: Serum or plasma creatinine m easurement (mass/volume)on 01-19-2022 Creatinine [Mass/Vol] 1.92 mg/dL 0.55-1.02 [facility] Work Phone: Comment on above: The validity of the calculated GFR & GFRAA in patients over 70 years has not been determined. Clinical correlation is essential. Serum or plasma low density lipoprotein (LDL) cholesterol measurement (mass/volume)on 01-19-2022 Cholesterol in LDL [Mass/Vol] 127 mg/dL 0-130 [facility] Work Phone: Serum or plasma urea nitroge n measurement (mass/volume)on 01-19-2022 Urea nitrogen [Mass/Vol] 24 mg/dL 7-18 [facility] Work Phone: Serum or plasma uric acid me asurement (mass/volume)on 01-19-2022 Urate [Mass/Vol] 5.4 mg/dL 2.6-6.0 [facility] Work Phone: Comment on above: The drugs N-Acetylcy steine and Metamizole may falsely depress this assay. Thin prep Papanicolaou smear with manual screeningon 01-19-2022 Thin prep Papanicolaou smear with manual screening 16 U/L 15-37 [facility] Work Phone: Thin prep Papanicolaou smear with manual screening 6 5-15 [facility] Work Phone: [phone] Basophil percentageon 2021 Basophil percentage 3.3 mg/dL 2.5-4.9 [facility] Work Phone: [phone] Chloride [Moles/Vol] 104 mmol/L 98-107 [facility] Work Phone: [phone] Glucose [Mass/Vol] 93 mg/dL 74-106 [facility] Work Phone: [phone] Potassium [Moles/Vol] 4.0 mmol/L 3.5-5.1 [facility] Work Phone: [phone] Sodium [Moles/Vol] 136 mmol/L 136-145 [facility] Work Phone: [phone] WBC (Bld) [#/Vol] 16.7 10*3/uL 4.4-11.0 [facility] Work Phone: Blood erythrocytes count (nu mber/volume)on 12-08-2021 RBC (Bld) [#/Vol] 4.35 10*6/uL 4.2-5.4 [facility] Work Phone: Blood hemoglobin measurement (mass/volume)on 12-08-2021 Hemoglobin (Bld) [Mass/Vol] 13.6 g/dL 12.0-15.0 [facility] Work Phone: Blood platelet mean volumeon 12-08-2021 Platelet mean volume (Bld) [Entitic vol] 10.4 fL 6.2-12.0 [facility] Work Phone: Determination of erythrocyte mean corpuscular volume (MCV)on 12-08-2021 MCV (RBC) [Entitic vol] 100.5 fL 81-99 [facility] Work Phone: [phone] Hematocrit Auto (Bld) [Volum e fraction]on 12-08-2021 Hematocrit (Bld) [Volume fraction] 43.7 % 37-47 [facility] Work Phone: Laboratory - Chemistry and C hemistry - challengeon 12-08-2021 CO2 [Moles/Vol] 24.0 mmol/L 21.0-32.0 [facility] Work Phone: Urea nitrogen/Creatinine [Mass ratio] 8.9 mg/mg -20 [facility] Work Phone: Laboratory - Hematology and Cell countson 12-08-2021 Erythrocyte distribution width (RBC) [Entitic vol] 50.1 fL 35.1-43.9 [facility] Work Phone: Erythrocyte distribution width (RBC) [Ratio] 13.4 % 11.6-14.6 [facility] Work Phone: MCH (RBC) [Entitic mass] 31.3 pg 27.0-32.0 [facility] Work Phone: MCHC Auto (RBC) [Mass/Vol]on 12-08-2021 MCHC (RBC) [Mass/Vol] 31.1 g/dL 32-36 [facility] Work Phone: No Panel Informationon 12-08 Estimated GFR (MDRD) Amer 34 mL/min >60 [facility] Work Phone: Comment on above: GFR Calc Estimated GFR (MDRD) Non-Af Amer 28 mL/min >60 [facility] Work Phone: Comment on above: Non- GFR Calc Parathyroid Hormone (Intact) 166.1 pg/mL 18.4-80.1 [facility] Work Phone: Platelets bldon 12-08-2021 Platelets (Bld) [#/Vol] 394 10*3/uL 150-450 [facility] Work Phone: Serum or plasma albumin yunior urement (mass/volume)on 12-08-2021 Albumin [Mass/Vol] 2.7 g/dL 3.2-5.0 [facility] Work Phone: Serum or plasma calcium yunior urement (mass/volume)on 12-08-2021 Calcium [Mass/Vol] 8.8 mg/dL 8.5-10.1 [facility] Work Phone: Serum or plasma creatinine m easurement (mass/volume)on 12-08-2021 Creatinine [Mass/Vol] 1.91 mg/dL 0.55-1.02 [facility] Work Phone: Comment on above: The validity of the calculated GFR & GFRAA in patients over 70 years has not been determined. Clinical correlation is essential. Serum or plasma urea nitroge n measurement (mass/volume)on 12-08-2021 Urea nitrogen [Mass/Vol] 17 mg/dL 7-18 [facility] Work Phone: Culture, urineon 12-06-2021 Bacteria identified Cx Nom (U) Pseudomonas aeroginosa [facility] Work Phone: Bacteria identified Cx Nom (U) Escherichia coli [facility] Work Phone: Basophil percentageon 2021 Chloride [Moles/Vol] 105 mmol/L 98-107 [facility] Work Phone: Glucose [Mass/Vol] 97 mg/dL 74-106 [facility] Work Phone: Comment on above: Please note revised GLUCOSE reference range effective 2017. Potassium [Moles/Vol] 3.8 mmol/L 3.5-5.1 [facility] Work Phone: Sodium [Moles/Vol] 141 mmol/L 136-145 [facility] Work Phone: WBC (Bld) [#/Vol] 15.1 10*3/uL 4.4-11.0 [facility] Work Phone: Blood erythrocytes count (nu mber/volume)on 11-28-2021 RBC (Bld) [#/Vol] 4.55 10*6/uL 4.2-5.4 [facility] Work Phone: Blood hemoglobin measurement (mass/volume)on 11-28-2021 Hemoglobin (Bld) [Mass/Vol] 14.6 g/dL 12.0-15.0 [facility] Work Phone: Blood platelet mean volumeon 11-28-2021 Platelet mean volume (Bld) [Entitic vol] 10.1 fL 6.2-12.0 [facility] Work Phone: Determination of erythrocyte mean corpuscular volume (MCV)on 11-28-2021 MCV (RBC) [Entitic vol] 100.2 fL 81-99 [facility] Work Phone: Hematocrit Auto (Bld) [Volum e fraction]on 11-28-2021 Hematocrit (Bld) [Volume fraction] 45.6 % 37-47 [facility] Work Phone: Laboratory - Chemistry and C hemistry - challengeon 11-28-2021 CO2 [Moles/Vol] 30.0 mmol/L 21.0-32.0 [facility] Work Phone: Urea nitrogen/Creatinine [Mass ratio] 10.2 mg/mg 10-20 [facility] Work Phone: Laboratory - Hematology and Cell countson 11-28-2021 Erythrocyte distribution width (RBC) [Entitic vol] 50.5 fL 35.1-43.9 [facility] Work Phone: Erythrocyte distribution width (RBC) [Ratio] 13.7 % 11.6-14.6 [facility] Work Phone: MCH (RBC) [Entitic mass] 32.1 pg 27.0-32.0 [facility] Work Phone: MCHC Auto (RBC) [Mass/Vol]on 11-28-2021 MCHC (RBC) [Mass/Vol] 32.0 g/dL 32-36 [facility] Work Phone: No Panel Informationon 11-28 Estimated GFR (MDRD) Amer 33 mL/min >60 [facility] Work Phone: Comment on above: GFR Calc Estimated GFR (MDRD) Non-Af Amer 27 mL/min >60 [facility] Work Phone: Comment on above: Non- GFR Calc SARS-CoV-2 Antigen (Rapid) [facility] Work Phone: Platelets bldon 11-28-2021 Platelets (Bld) [#/Vol] 340 10*3/uL 150-450 [facility] Work Phone: Serum or plasma calcium yunior urement (mass/volume)on 11-28-2021 Calcium [Mass/Vol] 8.6 mg/dL 8.5-10.1 [facility] Work Phone: Serum or plasma creatinine m easurement (mass/volume)on 11-28-2021 Creatinine [Mass/Vol] 1.96 mg/dL 0.55-1.02 [facility] Work Phone: Comment on above: The validity of the calculated GFR & GFRAA in patients over 70 years has not been determined. Clinical correlation is essential. Serum or plasma urea nitroge n measurement (mass/volume)on 11-28-2021 Urea nitrogen [Mass/Vol] 20 mg/dL 7-18 [facility] Work Phone: Thin prep Papanicolaou smear with manual screeningon 11-28-2021 Thin prep Papanicolaou smear with manual screening 6 5-15 [facility] Work Phone: Absolute lymphocyte counton 11-08-2021 Lymphocytes Auto (Unsp spec) [#/Vol] 6.01 10*3/uL 0.83-4.51 [facility] Work Phone: Basophil percentageon 2020 Bilirubin [Mass/Vol] 0.50 mg/dL 0.20-1.00 [facility] Work Phone: Comment on above: For patients on eltr ombopag therapy, use of Dimension [place] TBIL is not recommended. Chloride [Moles/Vol] 111 mmol/L 98-107 [facility] Work Phone: Cholesterol [Mass/Vol] 183 mg/dL <200 [facility] Work Phone: Comment on above: <200 mg/dL Desirable 200-240 mg/dL Borderline >240 mg/dL High Risk Eosinophils/100 WBC (Bld) 0.1 % 0-5 [facility] Work Phone: Glucose [Mass/Vol] 92 mg/dL 74-106 [facility] Work Phone: Comment on above: Please note revised GLUCOSE reference range effective 2017. Neutrophils (Bld) [#/Vol] 10.1 10*3/uL 2.0-7.7 [facility] Work Phone: Potassium [Moles/Vol] 3.8 mmol/L 3.5-5.1 [facility] Work Phone: Comment on above: Slight Hemolysis, Re sult may be falsely increased. Protein [Mass/Vol] 8.1 g/dL 6.4-8.2 [facility] Work Phone: Sodium [Moles/Vol] 142 mmol/L 136-145 [facility] Work Phone: Triglyceride [Mass/Vol] 122 mg/dL [facility] Work Phone: Comment on above: The drugs N-Acetylcy steine and Metamizole may falsely depress this assay.Serum Triglycerides Reference Interval Normal <150 mg/dL Borderline high 150 - 199 mg/dL High 200 - 499 mg/dL Very High > or = 500 mg/dL WBC (Bld) [#/Vol] 17.4 10*3/uL 4.4-11.0 [facility] Work Phone: Blood erythrocytes count (nu mber/volume)on 11-08-2021 RBC (Bld) [#/Vol] 4.74 10*6/uL 4.2-5.4 [facility] Work Phone: Blood hemoglobin measurement (mass/volume)on 11-08-2021 Hemoglobin (Bld) [Mass/Vol] 14.9 g/dL 12.0-15.0 [facility] Work Phone: Blood lymphocytes/100 leukoc yteson 11-08-2021 Lymphocytes/100 WBC (Bld) 34.5 % 19-41 [facility] Work Phone: Blood manual differential co mment interpretation (narrative result)on 11-08-2021 Manual differential comment Pollo (Bld) [Interp] SEE COMMENT [facility] Work Phone: Comment on above: LYMPHOCYTOSIS NOTED Blood monocytes/100 leukocyt eson 11-08-2021 Monocytes/100 WBC (Bld) 4.8 % 0-10 [facility] Work Phone: Blood platelet adequacy dete ction by light microscopyon 11-08-2021 Platelets LM Ql (Bld) SLT INC ADEQ [facility] Work Phone: Blood platelet mean volumeon 11-08-2021 Platelet mean volume (Bld) [Entitic vol] 10.5 fL 6.2-12.0 [facility] Work Phone: Determination of erythrocyte mean corpuscular volume (MCV)on 11-08-2021 MCV (RBC) [Entitic vol] 98.1 fL 81-99 [facility] Work Phone: Hematocrit Auto (Bld) [Volum e fraction]on 11-08-2021 Hematocrit (Bld) [Volume fraction] 46.5 % 37-47 [facility] Work Phone: Laboratory - Chemistry and C hemistry - challengeon 11-08-2021 ALP [Catalytic activity/Vol] 107 U/L 45-117 [facility] Work Phone: ALT [Catalytic activity/Vol] 44 U/L 13-56 [facility] Work Phone: CO2 [Moles/Vol] 24.0 mmol/L 21.0-32.0 [facility] Work Phone: Globulin (S) [Mass/Vol] 5.5 g/dL 2.2-4.2 [facility] Work Phone: Urea nitrogen/Creatinine [Mass ratio] 13.6 mg/mg 10-20 [facility] Work Phone: [phone] Laboratory - Hematology and Cell countson 11-08-2021 Anisocytosis Ql (Bld) RARE [facility] Work Phone: Basophils/100 WBC (Unsp spec) 0.6 % 0-1 [facility] Work Phone: [phone] Erythrocyte distribution width (RBC) [Entitic vol] 51.4 fL 35.1-43.9 [facility] Work Phone: [phone] Erythrocyte distribution width (RBC) [Ratio] 14.2 % 11.6-14.6 [facility] Work Phone: Immature granulocytes/100 WBC (Bld) 2.000 % 0.0-0.9 [facility] Work Phone: [phone] Comment on above: IG% - Immature Granu locytes (promyelocytes, myelocytes and metamyelocytes) > 1% indicates that a LEFT SHIFT is Present. MCH (RBC) [Entitic mass] 31.4 pg 27.0-32.0 [facility] Work Phone: Neutrophils/100 WBC (Bld) 58.0 % 47-70 [facility] Work Phone: Nucleated RBC/100 WBC (Bld) [Ratio] 0 % 0-5 [facility] Work Phone: [phone] MCHC Auto (RBC) [Mass/Vol]on 11-08-2021 MCHC (RBC) [Mass/Vol] 32.0 g/dL 32-36 [facility] Work Phone: [phone] Macrocytes detectionon 11-08 Macrocytes Ql (Bld) RARE [facility] Work Phone: [phone] No Panel Informationon 11-08 Atypical Lymphocytes 2+ % [facility] Work Phone: [phone] Estimated GFR (MDRD) Amer 34 mL/min >60 [facility] Work Phone: Comment on above: GFR Calc Estimated GFR (MDRD) Non-Af Amer 28 mL/min >60 [facility] Work Phone: Comment on above: Non- GFR Calc Thyroid Stimulating Hormone (TSH) 1.06 uIU/mL 0.358-3.74 [facility] Work Phone: Vitamin D 25-Hydroxy 36.3 ng/mL [facility] Work Phone: Comment on above: Vitamin D 25(OH) Sta tus Range Deficiency <20 ng/mL (50nmol/L) Insufficiency 20 - 30 ng/mL (50 - 75 nmol/L) Sufficiency 30 - 100 ng/mL (75 - 250 nmol/L) Toxicity >100 ng/mL (>250 nmol/L) Platelets bldon 11-08-2021 Platelets (Bld) [#/Vol] 408 10*3/uL 150-450 [facility] Work Phone: RBC morphologyon 11-08-2021 RBC morphology finding Nom (Bld) N CHROM NORMAL NORM C&C [facility] Work Phone: Review by pathologiston 10-20 Pathologist review Pollo (Unsp spec) [Interp] Reviewed [facility] Work Phone: Comment on above: Previous reported re sult: Denisse alcala Edited by: KRISTINA on 11/10/21:0937Neutrophilic leukocytosis.Clinical correlation suggested.Albaro Au D.O. 11/10/21 AMENDED REPORT 11/10/21 0937 PATH REV previously reported as: Denisse alcala Serum or plasma albumin yunior urement (mass/volume)on 11-08-2021 Albumin [Mass/Vol] 2.6 g/dL 3.2-5.0 [facility] Work Phone: Serum or plasma albumin/glob ulin mass ratioon 11-08-2021 Albumin/Globulin [Mass ratio] 0.5 {ratio} 0.9-2.4 [facility] Work Phone: Serum or plasma calcium yunior urement (mass/volume)on 11-08-2021 Calcium [Mass/Vol] 8.5 mg/dL 8.5-10.1 [facility] Work Phone: Serum or plasma cholesterol in HDL measurement (mass/volume)on 11-08-2021 Cholesterol in HDL [Mass/Vol] 39 mg/dL [facility] Work Phone: Comment on above: The drugs N-Acetylcy steine and Metamizole may falsely depress this assay. Reference Range HDL <40 mg/dL Low HDL Cholesterol HDL >or= 60 mg/dL High HDL Cholesterol Serum or plasma cholesterol in VLDL measurement (mass/volume)on 11-08-2021 Cholesterol in VLDL [Mass/Vol] 24 mg/dL 5-40 [facility] Work Phone: Serum or plasma creatinine m easurement (mass/volume)on 11-08-2021 Creatinine [Mass/Vol] 1.91 mg/dL 0.55-1.02 [facility] Work Phone: Comment on above: The validity of the calculated GFR & GFRAA in patients over 70 years has not been determined. Clinical correlation is essential. Serum or plasma low density lipoprotein (LDL) cholesterol measurement (mass/volume)on 11-08-2021 Cholesterol in LDL [Mass/Vol] 120 mg/dL 0-130 [facility] Work Phone: Serum or plasma urea nitroge n measurement (mass/volume)on 11-08-2021 Urea nitrogen [Mass/Vol] 26 mg/dL 7-18 [facility] Work Phone: Thin prep Papanicolaou smear with manual screeningon 11-08-2021 Thin prep Papanicolaou smear with manual screening 16 U/L 15-37 [facility] Work Phone: Comment on above: Slight Hemolysis, Re sult may be falsely increased. Thin prep Papanicolaou smear with manual screening 7 5-15 [facility] Work Phone: Laboratory - Microbiology an d Antimicrobial susceptibilityon 11-01-2021 SARS-CoV-2 (COVID-19) RNA BOBBI+probe Ql (Unsp spec) Not detected Not Detect [facility] Work Phone: Comment on above: Normal [...] percentageon 2020 Chloride [Moles/Vol] 106 mmol/L 98-107 [facility] Work Phone: Glucose [Mass/Vol] 85 mg/dL 74-106 [facility] Work Phone: Comment on above: Please note revised GLUCOSE reference range effective 2017. Potassium [Moles/Vol] 3.7 mmol/L 3.5-5.1 [facility] Work Phone: Sodium [Moles/Vol] 141 mmol/L 136-145 [facility] Work Phone: WBC (Bld) [#/Vol] 13.5 10*3/uL 4.4-11.0 [facility] Work Phone: Blood erythrocytes count (nu mber/volume)on 10-24-2021 RBC (Bld) [#/Vol] 4.48 10*6/uL 4.2-5.4 [facility] Work Phone: Blood hemoglobin measurement (mass/volume)on 10-24-2021 Hemoglobin (Bld) [Mass/Vol] 14.1 g/dL 12.0-15.0 [facility] Work Phone: Blood platelet mean volumeon 10-24-2021 Platelet mean volume (Bld) [Entitic vol] 10.8 fL 6.2-12.0 [facility] Work Phone: Determination of erythrocyte mean corpuscular volume (MCV)on 10-24-2021 MCV (RBC) [Entitic vol] 98.7 fL 81-99 [facility] Work Phone: Hematocrit Auto (Bld) [Volum e fraction]on 10-24-2021 Hematocrit (Bld) [Volume fraction] 44.2 % 37-47 [facility] Work Phone: Laboratory - Chemistry and C hemistry - challengeon 10-24-2021 CO2 [Moles/Vol] 25.0 mmol/L 21.0-32.0 [facility] Work Phone: Urea nitrogen/Creatinine [Mass ratio] 12.9 mg/mg 10-20 [facility] Work Phone: Laboratory - Hematology and Cell countson 10-24-2021 Erythrocyte distribution width (RBC) [Entitic vol] 52.3 fL 35.1-43.9 [facility] Work Phone: Erythrocyte distribution width (RBC) [Ratio] 14.4 % 11.6-14.6 [facility] Work Phone: MCH (RBC) [Entitic mass] 31.5 pg 27.0-32.0 [facility] Work Phone: MCHC Auto (RBC) [Mass/Vol]on 10-24-2021 MCHC (RBC) [Mass/Vol] 31.9 g/dL 32-36 [facility] Work Phone: No Panel Informationon 10-24 Estimated GFR (MDRD) Amer 35 mL/min >60 [facility] Work Phone: Comment on above: GFR Calc Estimated GFR (MDRD) Non-Af Amer 29 mL/min >60 [facility] Work Phone: Comment on above: Non- GFR Calc Platelets bldon 10-24-2021 Platelets (Bld) [#/Vol] 334 10*3/uL 150-450 [facility] Work Phone: Serum or plasma calcium yunior urement (mass/volume)on 10-24-2021 Calcium [Mass/Vol] 8.7 mg/dL 8.5-10.1 [facility] Work Phone: Serum or plasma creatinine m easurement (mass/volume)on 10-24-2021 Creatinine [Mass/Vol] 1.86 mg/dL 0.55-1.02 [facility] Work Phone: Comment on above: The validity of the calculated GFR & GFRAA in patients over 70 years has not been determined. Clinical correlation is essential. Serum or plasma urea nitroge n measurement (mass/volume)on 10-24-2021 Urea nitrogen [Mass/Vol] 24 mg/dL 7-18 [facility] Work Phone: Thin prep Papanicolaou smear with manual screeningon 10-24-2021 Thin prep Papanicolaou smear with manual screening 10 5-15 [facility] Work Phone: Albumin Elph [Mass/Vol]on Albumin [Mass/Vol] 3.3 g/dL 2.9-4.4 [facility] Work Phone: Blood platelet adequacy dete ction by light microscopyon 05-31-2021 Platelets LM Ql (Bld) ADEQUATE ADEQ [facility] Interpretation of serum or p lasma protein pattern by immunofixation (narrative resulton 05-31-2021 Protein Fractions Immunofixation Pollo [Interp] See comment [facility] Work Phone: Comment on above: Due to the small leah ntity of monoclonal protein, unable toquantitate the M-spike. Laboratory - Hematology and Cell countson 05-31-2021 Anisocytosis Ql (Bld) 1+ [facility] Macrocytes detectionon 05-31 Macrocytes Ql (Bld) 1+ [facility] No Panel Informationon 05-31 Addendum Document Comment . [facility] Work Phone: Comment on above: Protein electrophore sis scan will follow via computer,mail, or derrick builder delivery.Performed at: [address], [place], [place] [id number] Director: Gaudencio Alexandre PhD, Phone: [phone] Atypical Lymphocytes 1+ % [facility] Miscellaneous Test See comment [facility] Comment on above: TEST RESULT UNITS RE [...] FISH RESULTS: CCND1/IGH: NORMAL . nuc edgar 11q13(MKRB6k2),14q32(IGHx2)[100] DUNCAN: NORMAL nuc edgar 11q22.3(ATMx2)[100] . 12cen: NORMAL . nuc edgar 12cen(M37N1t7)[100] . 13q: NORMAL . nuc edgar 13q14.3(DLEUx2),13q34(QEWO5t7)[100] . TP53: NORMAL . nuc edgar 17p13.1(TP53x2)[100] This analysis is limited to abnormalities detectableby the specific probes included in the study. FISH resultsshould be interpreted within the context of a fullcytogenetic analysis and hematologic evaluation. REFERENCES:. Latasha,(2013) Adv Exp Med Biol 792:193-214.PMID#[id number] . Valerie et al.,(2011) Clin Lab Med31:649-658.PMID#[id number] This test was developed and its performacecharacteristics determined by [employer] ([place]). It has not been cleared orapproved by the U.S. Food and Drug Administration. The DNAprobe vendor for this study was [employer]Director Review: Comment:JOSEPHINE AHUJA, PHD TESTING PERFORMED AT [employer]. ORIGINAL REPORT ON FILE IN LAB CONTAINS ADDITIONAL TEST SITE INFORMATION. 1+ % [facility] 1+ [facility] See comment [facility] RBC morphologyon 05-31-2021 RBC morphology finding Nom (Bld) N CHROM NORMAL NORM C&C [facility] Review by pathologiston 05-19 Pathologist review Pollo (Unsp spec) [Interp] Reviewed [facility] Comment on above: Previous reported re sult: Denisse alcala Edited by: KRISTINA on 06/01/21:1340Leukocytosis and macrocytosis.Clinical correlation necessary.Nikolas Clark M.D. 06/01/21 AMENDED REPORT 06/01/21 1340 PATH REV previously reported as: Denisse alcala Serum gvpim-7-lbccoacn measu rement by electrophoresison 05-31-2021 Alpha 1 globulin Elph [Mass/Vol] 0.3 g/dL 0.0-0.4 [facility] Work Phone: Alpha 1 globulin Elph [Mass/Vol] 1.1 g/dL 0.4-1.0 [facility] Work Phone: Serum or plasma IgA measurem ent (mass/volume)on 05-31-2021 IgA [Mass/Vol] 1001 mg/dL 87-352 [facility] Work Phone: Comment on above: Results confirmed on dilution. Serum or plasma IgG measurem ent (mass/volume)on 05-31-2021 IgG [Mass/Vol] 1843 mg/dL [phone] [facility] Work Phone: Serum or plasma IgM measurem ent (mass/volume)on 05-31-2021 IgM [Mass/Vol] 124 mg/dL 26-217 [facility] Work Phone: Serum or plasma beta globuli n measurement by electrophoresis (mass/volume)on 05-31-2021 Beta globulin Elph [Mass/Vol] 1.4 g/dL 0.7-1.3 [facility] Work Phone: Serum or plasma gamma globul in measurement by electrophoresis (mass/volume)on 05-31-2021 Gamma globulin Elph [Mass/Vol] 2.3 g/dL 0.4-1.8 [facility] Work Phone: Serum or plasma immunoelectr ophoresis interpretation (nominal result)on 05-31-2021 Interpretation IEP [Interp] Comment . [facility] Work Phone: Comment on above: Immunofixation shows IgM monoclonal protein with kappalight chain specificity.Lambda appears asymmetrical. Thin prep Papanicolaou smear with manual screeningon 05-31-2021 Thin prep Papanicolaou smear with manual screening 0.7 0.7-1.7 [facility] Work Phone: Total protein bloodon 2020 Protein [Mass/Vol] 8.3 g/dL 6.0-8.5 [facility] Work Phone: Hemogram/Diffon 06-12-2018 CBC Interp. See below Normal [facility] Comment on above: Performed By: #### C BCD1 ####[place] [address] Interpreted by See below Normal [facility] Comment on above: Result Comment: Trudy Small M.D., PathologistMild absolute lymphocytosis. If this finding is sustained orclinically unexplained, immunophenotyping by flow cytometrymay be useful. Performed By: #### C BCD1 ####[place] [address] CHEST 2 VIEWSon 06-11-2018 Protein mass conc Performed at [facility] APPROVED BY: Sean Frausto MD EXAMINATION: CHEST RADIOGRAPH (2 VIEW FRONTAL & LATERAL) Clinical History: Lightheadedness. Near syncopal episodeM: [id number]: None RESULT: Lines, tubes, and devices: None. Lungs and pleura: No consolidation. No lung mass. No pleural effusion. Cardiomediastinal silhouette: Normal cardiomediastinal silhouette. Other: No acute bony abnormality is seen IMPRESSION: No acute radiographic abnormality. Normal [facility] Comprehensive Panelon 2017 ALP enzyme act/vol 96 U/L Normal 46-116 [facility] Comment on above: Performed By: #### P 14 ####[facility] [place], [place] [address] ALT enzyme act/vol 17 U/L Normal 12-78 [facility] Comment on above: Performed By: #### P 14 ####[facility] [place], [place] [address] Protein mass conc 8.1 g/dL Normal 6.4-8.2 [facility] Comment on above: Performed By: #### P 14 ####[address] [address] Bilirubin mass conc 0.4 mg/dL Normal 0.2-1.0 [facility] Comment on above: Performed By: #### P 14 ####[address] [address] AST enzyme act/vol 8 U/L Low 9-37 [facility] Comment on above: Performed By: #### P 14 ####[address] [address] Creatinine mass conc 0.89 mg/dL Normal 0.51-0.95 [facility] Comment on above: Performed By: #### P 14 ####[address] [address] Glucose mass conc 99 mg/dL Normal 70-99 [facility] Comment on above: Performed By: #### P 14 ####[address] [address] Albumin mass conc 3.2 g/dL Low 3.4-5.0 [facility] Comment on above: Performed By: #### P 14 ####[address] [address] Urea nitrogen mass conc 8 mg/dL Normal 7-18 [facility] Comment on above: Performed By: #### P 14 ####[place] [address] Anion gap 3 molar conc 11 mmol/L Normal 8-16 [facility] Comment on above: Performed By: #### P 14 ####[place] [address] Calcium mass conc 8.8 mg/dL Normal 8.5-10.1 [facility] Comment on above: Performed By: #### P 14 ####[place] [address] CO2 molar conc 28 mmol/L Normal 21-32 [facility] Comment on above: Performed By: #### P 14 ####[place] [address] Chloride molar conc 105 mmol/L Normal 98-107 [facility] Comment on above: Performed By: #### P 14 ####[place] [address] Potassium molar conc 3.8 mmol/L Normal 3.5-5.1 [facility] Comment on above: Performed By: #### P 14 ####[place] [address] Sodium molar conc 140 mmol/L Normal 136-145 [facility] Comment on above: Performed By: #### P 14 ####[place] [address] [facility] Troponin Ion 06-11-2018 Troponin I.cardiac mass conc ng/mL Normal 0.015-0.04 5 [facility] Comment on above: Performed By: #### E RTRP ####[place] [address] Hemogram/Diffon 06-11-2018 Abs Immature Grans 0.11 thou/cmm High 0.00-0.05 [facility] Comment on above: Performed By: #### C BCD1 ####[place] [address] Abs. Baso 0.06 thou/cmm Normal 0.01-0.08 [facility] Comment on above: Result Comment: Smea r scanned; tech agrees with automated differential Performed By: #### C BCD1 ####[facility] [place], [place] [address] Abs. [facility] 0.91 thou/cmm High 0.27-0.70 [facility] Comment on above: Performed By: #### C BCD1 ####[address] [address] Abs. Neut (ANC) 8.83 thou/cmm High 1.56-6.13 [facility] Comment on above: Performed By: #### C BCD1 ####[address] [address] Basophils/100 WBC Auto (Bld) 0.4 % Normal [facility] Comment on above: Performed By: #### C BCD1 ####[address] [address] Eosinophils Auto #/vol (Bld) 0.08 thou/cmm Normal 0.00-0.31 [facility] Comment on above: Performed By: #### C BCD1 ####[address] [address] Eosinophils/100 WBC Auto (Bld) 0.5 % Normal [facility] Comment on above: Performed By: #### C BCD1 ####[address] [address] Immature Grans 0.70 % Normal [facility] Comment on above: Performed By: #### C BCD1 ####[address] [address] Lymphocytes Auto #/vol (Bld) 5.37 thou/cmm High 1.18-3.74 [facility] Comment on above: Performed By: #### C BCD1 ####[address] [address] Lymphocytes/100 WBC Auto (Bld) 35.0 % Normal [facility] Comment on above: Performed By: #### C BCD1 ####[address] [address] Monocytes/100 WBC Auto (Bld) 5.9 % Normal [facility] Comment on above: Performed By: #### C BCD1 ####[place] [address] Seg Neutrophil 57.5 % Normal [facility] Comment on above: Performed By: #### C BCD1 ####[place] [address] Erythrocyte distribution width Auto Ratio (RBC) 13.5 % Normal 11.7-14.4 [facility] Comment on above: Performed By: #### C BCD1 ####[place] [address] Hematocrit Auto Volume Fraction (Bld) 42.8 % Normal 34.1-44.9 [facility] Comment on above: Performed By: #### C BCD1 ####[place] [address] Hemoglobin mass conc (Bld) 14.4 g/dL Normal 11.2-15.7 [facility] Comment on above: Performed By: #### C BCD1 ####[place] [address] MCH Auto Entitic mass (RBC) 31.8 pg Normal 25.6-32.2 [facility] Comment on above: Performed By: #### C BCD1 ####[place] [address] MCHC Auto mass conc (RBC) 33.6 % Normal 31.6-34.8 [facility] Comment on above: Performed By: #### C BCD1 ####[place] [address] MCV Auto Entitic volume (RBC) 94.5 fL Normal 79.4-94.8 [facility] Comment on above: Performed By: #### C BCD1 ####[place] [address] Platelet mean volume Auto Entitic volume (Bld) 10.4 fL Normal 9.4-12.3 [facility] Comment on above: Performed By: #### C BCD1 ####[place] [address] Platelets Auto #/vol (Bld) 389 thou/cmm High 182-369 [facility] Comment on above: Performed By: #### C BCD1 ####[place] [address] RBC Auto #/vol (Bld) 4.53 mil/cmm Normal 3.93-5.22 [facility] Comment on above: Performed By: #### C BCD1 ####[place] [address] RDW SD 47.0 fl High 36.4-46.3 [facility] Comment on above: Performed By: #### C BCD1 ####[place] [address] WBC Auto #/vol (Bld) 15.35 thou/cmm High 3.98-10.04 [facility] Comment on above: Performed By: #### C BCD1 ####[place] [address] MDRD GFRon 06-11-2018 GFR/1.73 sq M predicted among non-blacks MDRD vol rate/area (S/P/Bld) mL/min/{1.73_m2} Normal >60mL/min/ 1.73m2 [facility] Comment on above: Result Comment: If t he patient is , multiply the result by 1.210. Performed By: #### G FR ####[place] [address] Urinalysis Routineon 018 Bacteria LM.HPF #/area (Urine sed) NONE Normal None [facility] Comment on above: Performed By: #### U RIN2 ####[place] [address] Ep Cells Urine 0.6 /hpf Normal 0.0-5.0 [facility] Comment on above: Performed By: #### U RIN2 ####[place] [address] Hyaline Cast 0.4 /lpf Normal 0.0-1.0 [facility] Comment on above: Performed By: #### U RIN2 ####[place] [address] [place], [place] [address] RBC,Urine 4.8 /hpf Normal 0.0-5.0 [facility] Comment on above: Performed By: #### U RIN2 ####[address] [address] WBC, Urine 184.3 /hpf High 0.0-5.0 [facility] Comment on above: Performed By: #### U RIN2 ####[place] [address] Appearance Nom (U) CLOUDY Normal [facility] Comment on above: Performed By: #### U RIN2 ####[place] [address] Bilirubin Urine Negative Normal Negative [facility] Comment on above: Performed By: #### U RIN2 ####[place] [address] Color Nom (U) YELLOW Normal [facility] Comment on above: Performed By: #### U RIN2 ####[place] [address] Glucose Ql (U) Negative Normal Negative [facility] Comment on above: Performed By: #### U RIN2 ####[place] [address] Hemoglobin,Urine MODERATE Abnormal Negative [facility] Comment on above: Performed By: #### U RIN2 ####[place] [address] Ketone Urine Negative Normal Negative [facility] Comment on above: Performed By: #### U RIN2 ####[place] [address] Leukocytes Esterase LARGE Abnormal Negative [facility] Comment on above: Performed By: #### U RIN2 ####[place] [address] Nitrites Urine Negative Normal Negative [facility] Comment on above: Performed By: #### U RIN2 ####[place] [address] pH Test strip (U) 7.0 [pH] Normal 5.0-8.0 [facility] Comment on above: Performed By: #### U RIN2 ####[facility] [place], [place] [address] Protein Urine Negative Normal Negative [facility] Comment on above: Performed By: #### U RIN2 ####[facility] [place], [place] [address] Specific [place], Ur 1.005 Normal 1.005-1 .03 0 [facility] Comment on above: Performed By: #### U RIN2 ####[facility] [place], [place] [address] Urobilinogen,Ur 0.2 EU/dL Normal 0.0-1.0 [facility] Comment on above: Performed By: #### U RIN2 ####[address] [address] Clostridium difficile detect ion by polymerase chain reaction C. difficile DNA BOBBI+probe Ql (Unsp spec) [facility] Work Phone: Culture, urine Bacteria identified Cx Nom (U) Mixed Gram Pos & Gram Neg Org [facility] Work Phone: Bacteria identified Cx Nom (U) Pseudomonas aeroginosa [facility] Work Phone: Bacteria identified Cx Nom (U) Positive [facility] Work Phone: Influenza virus A and B and SARS-CoV-2 (COVID-19) Ag panel - Upper respiratory specim SARS-CoV-2 (COVID-19) RNA BOBBI+probe Ql (Resp) [facility] Work Phone: Laboratory - Microbiology an d Antimicrobial susceptibility Bacteria identified Cx Nom (Bld) No growth in 5 days. [facility] Work Phone: No Panel Information Influenza Types A,B Direct FA (LEVI) [facility] Work Phone: SARS-CoV-2 & FLU Antigen (Rapid) [facility] Work Phone: RSV Ag EIA RSV Ag Immune stain Ql (Tiss) [facility] Work Phone: Vital Signs Date Time Vital Sign Value Performing Clinician Facility 03-03-2025 11:11-0400 Body temperature 98.6 [degF] Dr. Gerardo García MD Work Phone: [facility] 03-03-2025 11:11-0400 Body weight 80.[address] Gerardo García MD Work Phone: [facility] 03-03-2025 11:11-0400 Diastolic blood pressure 82 mm[Hg] Dr. Gerardo García MD Work Phone: [facility] 03-03-2025 11:11-0400 Heart rate 106 /min Dr. Gerardo García MD Work Phone: [facility] 03-03-2025 11:11-0400 Respiratory rate 16 /min Dr. Gerardo García MD Work Phone: [facility] 03-03-2025 11:11-0400 SaO2% (BldA) [Mass fraction] 97 % Dr. Gerardo García MD Work Phone: [facility] 03-03-2025 11:11-0400 Systolic blood pressure 158 mm[Hg] Dr. Gerardo García MD Work Phone: [facility] 01-26-2025 15:01-0400 Diastolic blood pressure 100 mm[Hg] Injection/[facility] 01-26-2025 15:01-0400 Heart rate 109 /min Injection/[facility] 01-26-2025 15:01-0400 Respiratory rate 20 /min Injection/[facility] 01-26-2025 15:01-0400 SaO2% (BldA) [Mass fraction] 95 % Injection/[facility] 01-26-2025 15:01-0400 Systolic blood pressure 159 mm[Hg] Injection/[facility] 09-29-2024 11:21-0500 Diastolic blood pressure 68 mm[Hg] Ghulam Rivera DO Work Phone: [facility] 09-29-2024 11:21-0500 Heart rate 105 /min Ghulam Rivera DO Work Phone: [facility] 09-29-2024 11:21-0500 Respiratory rate 20 /min Ghulam Rivera DO Work Phone: [facility] Comment on above: on 09-29-2024 11:21-0500 SaO2% (BldA) [Mass fraction] 97 % Ghulam Rivera DO Work Phone: [facility] 09-29-2024 11:21-0500 Systolic blood pressure 147 mm[Hg] Ghulam Rivera DO Work Phone: [facility] 03-18-2024 16:02-0400 Diastolic blood pressure 90 mm[Hg] Rocío Palmer MD, MD Work Phone: [facility] 03-18-2024 16:02-0400 Heart rate 102 /min Rocío Palmer MD, MD Work Phone: [facility] 03-18-2024 16:02-0400 SaO2% (BldA) [Mass fraction] 98 % Rocío Palmer MD, MD Work Phone: [facility] 03-18-2024 16:02-0400 Systolic blood pressure 166 mm[Hg] Rocío Palmer MD, MD Work Phone: [facility] 02-17-2024 11:15-0400 Body temperature 98.2 [degF] Dr. Gerardo García Work Phone: [facility] 02-17-2024 11:15-0400 Diastolic blood pressure 74 mm[Hg] Dr. Gerardo García Work Phone: [facility] 02-17-2024 11:15-0400 Heart rate 72 /min Dr. Gerardo García Work Phone: [facility] 02-17-2024 11:15-0400 Respiratory rate 18 /min Dr. Gerardo García Work Phone: [facility] 02-17-2024 11:15-0400 SaO2% (BldA) [Mass fraction] 98 % Dr. Gerardo García Work Phone: [facility] 02-17-2024 11:15-0400 Systolic blood pressure 140 mm[Hg] Dr. Gerardo García Work Phone: [facility] 02-17-2024 05:54-0400 Body mass index (BMI) [Ratio] 25.9 kg/m2 Dr. Gerardo García Work Phone: [facility] 02-17-2024 05:54-0400 Body weight 77.[address] Gerardo García Work Phone: [facility] 02-14-2024 20:45-0400 Body height 172.[address] Gerardo García Work Phone: 2(301)405-656582 [place] [address] 02-14-2024 20:00-0400 Body temperature 98.6 [degF] Dr. Gerardo García Work Phone: 1(266)222-923082 [place] [address] 02-14-2024 20:00-0400 Diastolic blood pressure 74 mm[Hg] Dr. Gerardo García Work Phone: [facility] 02-14-2024 20:00-0400 Heart rate 103 /min Dr. Gerardo García Work Phone: [facility] 02-14-2024 20:00-0400 Respiratory rate 17 /min Dr. Gerardo García Work Phone: [facility] 02-14-2024 20:00-0400 SaO2% (BldA) [Mass fraction] 96 % Dr. Gerardo García Work Phone: [facility] 02-14-2024 20:00-0400 Systolic blood pressure 121 mm[Hg] Dr. Gerardo García Work Phone: [facility] 02-14-2024 17:00-0400 Body mass index (BMI) [Ratio] 23.6 kg/m2 Dr. Gerardo García Work Phone: [facility] 02-14-2024 17:00-0400 Body weight 70.[address] Gerardo García Work Phone: [facility] 01-10-2024 11:39-0500 Body temperature 98.1 [degF] Breannmaris Woods RN Work Phone: [facility] 01-10-2024 11:39-0500 Diastolic blood pressure 80 mm[Hg] Breann Grage RN Work Phone: [facility] 01-10-2024 11:39-0500 Heart rate 100 /min Breann Grage RN Work Phone: [facility] 01-10-2024 11:39-0500 Respiratory rate 18 /min Breann Grage RN Work Phone: [facility] 01-10-2024 11:39-0500 SaO2% (BldA) [Mass fraction] 98 % Breann Grage RN Work Phone: [facility] 01-10-2024 11:39-0500 Systolic blood pressure 126 mm[Hg] Breann Grage RN Work Phone: [facility] 01-03-2024 14:40-0500 Body temperature 98.1 [degF] Breann Grage RN Work Phone: [facility] 01-03-2024 14:40-0500 Diastolic blood pressure 70 mm[Hg] Breann Grage RN Work Phone: [facility] 01-03-2024 14:40-0500 Heart rate 78 /min Breann Grage RN Work Phone: [facility] 01-03-2024 14:40-0500 Respiratory rate 18 /min Breann Grage RN Work Phone: [facility] 01-03-2024 14:40-0500 SaO2% (BldA) [Mass fraction] 98 % Breann Grage RN Work Phone: [facility] 01-03-2024 14:40-0500 Systolic blood pressure 124 mm[Hg] Breann Grage RN Work Phone: [facility] 01-01-2024 11:16-0500 Body temperature 97 [degF] Edwina Patel MD, MD Work Phone: [facility] 01-01-2024 11:16-0500 Respiratory rate 17 /min Edwina Patel MD, MD Work Phone: [facility] 12-27-2023 16:25-0500 Body temperature 98.4 [degF] Breann Woods RN Work Phone: [facility] 12-27-2023 16:25-0500 Diastolic blood pressure 86 mm[Hg] Breann Woods RN Work Phone: [facility] 12-27-2023 16:25-0500 Heart rate 100 /min Breann Woods RN Work Phone: [facility] 12-27-2023 16:25-0500 Respiratory rate 18 /min Breann Woods RN Work Phone: [facility] 12-27-2023 16:25-0500 SaO2% (BldA) [Mass fraction] 99 % Breann Woods RN Work Phone: [facility] 12-27-2023 16:25-0500 Systolic blood pressure 128 mm[Hg] Breann Woods RN Work Phone: [facility] 12-24-2023 15:35-0500 Body height 172.7 cm Jin Antonio MD Work Phone: [facility] 12-24-2023 15:35-0500 Body weight 74.84 kg Jin Antonio MD Work Phone: [facility] 12-24-2023 15:35-0500 Respiratory rate 16 /min Jin Antonio MD Work Phone: [facility] 12-20-2023 13:26-0500 Diastolic blood pressure 86 mm[Hg] Joey Strange RN Work Phone: [facility] 12-20-2023 13:26-0500 Heart rate 84 /min Joey Strange RN Work Phone: [facility] 12-20-2023 13:26-0500 Systolic blood pressure 160 mm[Hg] Joey Strange RN Work Phone: [facility] 12-20-2023 13:00-0500 Body temperature 97.81 [degF] Joey Strange RN Work Phone: [facility] 12-20-2023 13:00-0500 Respiratory rate 16 /min Joey Strange RN Work Phone: [facility] 12-20-2023 13:00-0500 SaO2% (BldA) [Mass fraction] 96 % Joey Strange RN Work Phone: [facility] 11-17-2023 09:38-0500 Body temperature 98 [degF] Dr. Gerardo García Work Phone: [facility] 11-17-2023 09:38-0500 Diastolic blood pressure 68 mm[Hg] Dr. Gerardo García Work Phone: [facility] 11-17-2023 09:38-0500 Heart rate 97 /min Dr. Gerardo García Work Phone: [facility] 11-17-2023 09:38-0500 Respiratory rate 22 /min Dr. Gerardo García Work Phone: [facility] 11-17-2023 09:38-0500 SaO2% (BldA) [Mass fraction] 96 % Dr. Gerardo García Work Phone: [facility] 11-17-2023 09:38-0500 Systolic blood pressure 131 mm[Hg] Dr. Gerardo García Work Phone: [facility] 11-16-2023 16:14-0500 Body height 172.[address] Gerardo García Work Phone: [facility] 11-16-2023 16:14-0500 Body mass index (BMI) [Ratio] 26.4 kg/m2 Dr. Gerardo García Work Phone: [facility] 11-16-2023 16:14-0500 Body weight 78.[address] Gerardo García Work Phone: [facility] 11-13-2023 13:07-0500 Body temperature 98.9 [degF] Dr. Gerardo García Work Phone: [facility] 11-13-2023 13:07-0500 Diastolic blood pressure 80 mm[Hg] Dr. Gerardo García Work Phone: [facility] 11-13-2023 13:07-0500 Heart rate 76 /min Dr. Gerardo García Work Phone: [facility] 11-13-2023 13:07-0500 Respiratory rate 18 /min Dr. Gerardo García Work Phone: [facility] 11-13-2023 13:07-0500 SaO2% (BldA) [Mass fraction] 98 % Dr. Gerardo García Work Phone: [facility] 11-13-2023 13:07-0500 Systolic blood pressure 129 mm[Hg] Dr. Gerardo García Work Phone: 1(309)270-084882 [place] [address] 11-13-2023 10:49-0500 Body height 172.[address] Gerardo García Work Phone: [facility] 11-13-2023 10:49-0500 Body weight 77.[address] Gerardo García Work Phone: [facility] 11-10-2023 23:24-0500 Body mass index (BMI) [Ratio] 26 kg/m2 Dr. Gerardo García Work Phone: [facility] 11-10-2023 22:00-0500 Body temperature 98.3 [degF] Dr. Gerardo García Work Phone: [facility] 11-10-2023 22:00-0500 Diastolic blood pressure 54 mm[Hg] Dr. Gerardo García Work Phone: [facility] 11-10-2023 22:00-0500 Heart rate 76 /min Dr. Gerardo García Work Phone: [facility] 11-10-2023 22:00-0500 Respiratory rate 16 /min Dr. Gerardo García Work Phone: 4(776)214-743373 [place] [address] 11-10-2023 22:00-0500 SaO2% (BldA) [Mass fraction] 94 % Dr. Gerardo García Work Phone: [facility] 11-10-2023 22:00-0500 Systolic blood pressure 126 mm[Hg] Dr. Gerardo García Work Phone: [facility] 11-10-2023 20:11-0500 Body mass index (BMI) [Ratio] 25.9 kg/m2 Dr. Gerardo García Work Phone: [facility] 11-10-2023 20:11-0500 Body weight 77.[address] Gerardo García Work Phone: 9(297)714-709782 [place] [address] 11-10-2023 20:04-0500 Body height 172.[address] Gerardo García Work Phone: 6(764)328-900782 [place] [address] 11-06-2023 13:37-0500 Heart rate 89 /min Dr. Gerardo García Work Phone: [facility] 11-06-2023 13:37-0500 Respiratory rate 16 /min Dr. Gerardo García Work Phone: 1(440)151-931782 [place] [address] 11-06-2023 13:37-0500 SaO2% (BldA) [Mass fraction] 100 % Dr. Gerardo García Work Phone: [facility] 11-06-2023 09:46-0500 Body height 172.[address] Gerardo García Work Phone: [facility] 11-06-2023 09:46-0500 Body temperature 97.6 [degF] Dr. Gerardo García Work Phone: [facility] 11-06-2023 09:46-0500 Diastolic blood pressure 87 mm[Hg] Dr. Gerardo García Work Phone: [facility] 11-06-2023 09:46-0500 Systolic blood pressure 142 mm[Hg] Dr. Gerardo García Work Phone: [facility] 10-09-2023 21:00-0500 Heart rate 93 /min Dr. Gerardo García Work Phone: [facility] 10-09-2023 21:00-0500 Respiratory rate 24 /min Dr. Gerardo García Work Phone: 5(362)045-746582 [place] [address] 10-09-2023 21:00-0500 SaO2% (BldA) [Mass fraction] 97 % Dr. Gerardo García Work Phone: 4(591)502-845982 [place] [address] 10-09-2023 18:25-0500 Diastolic blood pressure 71 mm[Hg] Dr. Gerardo García Work Phone: 8(606)593-855382 [place] [address] 10-09-2023 18:25-0500 Systolic blood pressure 128 mm[Hg] Dr. Gerardo García Work Phone: 9(801)708-766282 [place] [address] 10-09-2023 18:12-0500 Body mass index (BMI) [Ratio] 26.6 kg/m2 Dr. Gerardo García Work Phone: 5(161)539-456182 [place] [address] 10-09-2023 18:12-0500 Body weight 79.[address] Gerardo García Work Phone: 3(839)603-023282 [place] [address] 10-09-2023 13:34-0500 Body height 172.[address] Gerardo García Work Phone: 0(771)654-671882 [place] [address] 10-09-2023 13:34-0500 Body temperature 97.6 [degF] Dr. Gerardo García Work Phone: 4(960)799-009982 [place] [address] 09-25-2023 10:14-0500 Body weight 78.[address] Gerardo García Work Phone: 4(633)342-147582 [place] [address] 09-22-2023 11:11-0400 Heart rate 97 /min Dr. Gerardo García Work Phone: 5(192)016-197782 [place] [address] 09-22-2023 07:44-0400 Body temperature 98.6 [degF] Dr. Gerardo García Work Phone: 9(954)473-896482 [place] [address] 09-22-2023 07:44-0400 Diastolic blood pressure 71 mm[Hg] Dr. Gerardo García Work Phone: 6(186)719-738482 [place] [address] 09-22-2023 07:44-0400 Respiratory rate 16 /min Dr. Gerardo García Work Phone: 9(563)317-128228 [place] [address] 09-22-2023 07:44-0400 SaO2% (BldA) [Mass fraction] 95 % Dr. Gerardo García Work Phone: 3(682)659-702982 [place] [address] 09-22-2023 07:44-0400 Systolic blood pressure 140 mm[Hg] Dr. Gerardo García Work Phone: 0(577)972-534428 [place] [address] 09-22-2023 01:51-0400 Body mass index (BMI) [Ratio] 26.7 kg/m2 Dr. Gerardo García Work Phone: 3(632)379-846728 [place] [address] 09-22-2023 01:51-0400 Body weight 80.[address] Gerardo García Work Phone: 1(959)891-806228 [place] [address] 09-20-2023 11:43-0400 Body height 172.[address] Gerardo García Work Phone: 5(974)530-208628 [place] [address] 09-19-2023 13:50-0400 Diastolic blood pressure 64 mm[Hg] Dr. Gerardo García Work Phone: 3(853)142-505328 [place] [address] 09-19-2023 13:50-0400 Heart rate 74 /min Dr. Gerardo García Work Phone: 6(961)528-624228 [place] [address] 09-19-2023 13:50-0400 Respiratory rate 16 /min Dr. Gerardo García Work Phone: 4(797)986-305228 [place] [address] 09-19-2023 13:50-0400 SaO2% (BldA) [Mass fraction] 95 % Dr. Gerardo García Work Phone: 0(400)972-076628 [place] [address] 09-19-2023 13:50-0400 Systolic blood pressure 106 mm[Hg] Dr. Gerardo García Work Phone: 9(058)015-008228 [place] [address] 09-19-2023 09:45-0400 Body mass index (BMI) [Ratio] 28.2 kg/m2 Dr. Gerardo García Work Phone: 4(915)591-894828 [place] [address] 09-19-2023 09:45-0400 Body weight 84.[address] Gerardo García Work Phone: [facility] 09-19-2023 09:24-0400 Body height 172.[address] Gerardo García Work Phone: [facility] 09-19-2023 09:24-0400 Body temperature 97.3 [degF] Dr. Gerardo García Work Phone: 5(151)643-062082 [place] [address] 08-07-2023 17:01-0400 Body temperature 98.1 [degF] Dr. Gerardo García Work Phone: 5(669)883-810582 [place] [address] 08-07-2023 17:01-0400 Diastolic blood pressure 73 mm[Hg] Dr. Gerardo García Work Phone: 4(880)925-233482 [place] [address] 08-07-2023 17:01-0400 Heart rate 95 /min Dr. Gerardo García Work Phone: 5(827)197-409382 [place] [address] 08-07-2023 17:01-0400 Respiratory rate 18 /min Dr. Gerardo García Work Phone: 3(847)389-642682 [place] [address] 08-07-2023 17:01-0400 SaO2% (BldA) [Mass fraction] 100 % Dr. Gerardo García Work Phone: 7(926)120-947982 [place] [address] 08-07-2023 17:01-0400 Systolic blood pressure 130 mm[Hg] Dr. Gerardo García Work Phone: [facility] 08-06-2023 09:14-0400 Body height 172.[address] Gerardo García Work Phone: [facility] 08-06-2023 09:14-0400 Body mass index (BMI) [Ratio] 28.2 kg/m2 Dr. Gerardo García Work Phone: 0(953)929-469682 [place] [address] 08-06-2023 09:14-0400 Body weight 84.[address] Gerardo García Work Phone: 1(065)396-124482 [place] [address] 06-08-2023 11:46-0400 Body temperature 98.3 [degF] Dr. Gerardo García Work Phone: [facility] 06-08-2023 11:46-0400 Diastolic blood pressure 68 mm[Hg] Dr. Gerardo García Work Phone: [facility] 06-08-2023 11:46-0400 Heart rate 71 /min Dr. Gerardo García Work Phone: [facility] 06-08-2023 11:46-0400 Respiratory rate 16 /min Dr. Gerardo García Work Phone: [facility] 06-08-2023 11:46-0400 SaO2% (BldA) [Mass fraction] 97 % Dr. Gerardo García Work Phone: [facility] 06-08-2023 11:46-0400 Systolic blood pressure 119 mm[Hg] Dr. Gerardo García Work Phone: 5(501)321-229046 [address] 06-08-2023 09:51-0400 Body height 172.[address] Gerardo García Work Phone: 9(063)782-571282 [place] [address] 06-08-2023 09:51-0400 Body mass index (BMI) [Ratio] 27.9 kg/m2 Dr. Gerardo García Work Phone: 4(138)808-720782 [place] [address] 06-08-2023 09:51-0400 Body weight 83.[address] Gerardo García Work Phone: 9(364)999-198982 [place] [address] 06-07-2023 14:17-0400 Diastolic blood pressure 75 mm[Hg] Dr. Gerardo García Work Phone: [facility] 06-07-2023 14:17-0400 Heart rate 72 /min Dr. Gerardo García Work Phone: [facility] 06-07-2023 14:17-0400 Respiratory rate 16 /min Dr. Gerardo García Work Phone: [facility] 06-07-2023 14:17-0400 SaO2% (BldA) [Mass fraction] 96 % Dr. Gerardo García Work Phone: 8(772)956-872082 [place] [address] 06-07-2023 14:17-0400 Systolic blood pressure 129 mm[Hg] Dr. Gerardo García Work Phone: [facility] 06-07-2023 13:11-0400 Body mass index (BMI) [Ratio] 28.1 kg/m2 Dr. Gerardo García Work Phone: [facility] 06-07-2023 13:11-0400 Body temperature 97.9 [degF] Dr. Gerardo García Work Phone: [facility] 06-07-2023 13:11-0400 Body weight 83.[address] Gerardo García Work Phone: 7(879)291-216682 [place] [address] 06-06-2023 14:07-0400 Diastolic blood pressure 69 mm[Hg] Dr. Gerardo García Work Phone: 4(134)203-527382 [place] [address] 06-06-2023 14:07-0400 Heart rate 79 /min Dr. Gerardo García Work Phone: [facility] 06-06-2023 14:07-0400 Systolic blood pressure 122 mm[Hg] Dr. Gerardo García Work Phone: 4(675)863-825182 [place] [address] 06-06-2023 13:00-0400 Body height 172.[address] Gerardo García Work Phone: [facility] 06-06-2023 13:00-0400 Body mass index (BMI) [Ratio] 28.1 kg/m2 Dr. Gerardo García Work Phone: [facility] 06-06-2023 13:00-0400 Body temperature 96.7 [degF] Dr. Gerardo García Work Phone: [facility] 06-06-2023 13:00-0400 Body weight 83.[address] Gerardo García Work Phone: [facility] 06-06-2023 13:00-0400 Respiratory rate 16 /min Dr. Gerardo García Work Phone: [facility] 06-06-2023 13:00-0400 SaO2% (BldA) [Mass fraction] 96 % Dr. Gerardo García Work Phone: [facility] 06-05-2023 14:18-0400 Diastolic blood pressure 62 mm[Hg] Dr. Gerardo García Work Phone: [facility] 06-05-2023 14:18-0400 Heart rate 77 /min Dr. Gerardo García Work Phone: [facility] 06-05-2023 14:18-0400 Systolic blood pressure 140 mm[Hg] Dr. Gerardo García Work Phone: [facility] 06-05-2023 12:55-0400 Body height 172.[address] Gerardo García Work Phone: [facility] 06-05-2023 12:55-0400 Body mass index (BMI) [Ratio] 28.1 kg/m2 Dr. Gerardo García Work Phone: [facility] 06-05-2023 12:55-0400 Body temperature 96.5 [degF] Dr. Gerardo García Work Phone: [facility] 06-05-2023 12:55-0400 Body weight 83.[address] Gerardo García Work Phone: [facility] 06-05-2023 12:55-0400 Respiratory rate 14 /min Dr. Gerardo García Work Phone: [facility] 06-05-2023 12:55-0400 SaO2% (BldA) [Mass fraction] 95 % Dr. Gerardo García Work Phone: [facility] 05-22-2023 13:26-0400 Body temperature 97.8 [degF] Dr. Gerardo García Work Phone: [facility] 05-22-2023 13:26-0400 Diastolic blood pressure 83 mm[Hg] Dr. Gerardo García Work Phone: [facility] 05-22-2023 13:26-0400 Heart rate 79 /min Dr. Gerardo García Work Phone: [facility] 05-22-2023 13:26-0400 Respiratory rate 18 /min Dr. Gerardo García Work Phone: [facility] 05-22-2023 13:26-0400 SaO2% (BldA) [Mass fraction] 98 % Dr. Gerardo García Work Phone: [facility] 05-22-2023 13:26-0400 Systolic blood pressure 144 mm[Hg] Dr. Gerardo García Work Phone: [facility] 05-21-2023 14:53-0400 Body temperature 96.1 [degF] Dr. Gerardo García Work Phone: [facility] 05-21-2023 14:53-0400 Diastolic blood pressure 66 mm[Hg] Dr. Gerardo García Work Phone: 3(418)987-910782 [place] [address] 05-21-2023 14:53-0400 Heart rate 75 /min Dr. Gerardo García Work Phone: [facility] 05-21-2023 14:53-0400 Respiratory rate 16 /min Dr. Gerardo García Work Phone: [facility] 05-21-2023 14:53-0400 SaO2% (BldA) [Mass fraction] 97 % Dr. Gerardo García Work Phone: [facility] 05-21-2023 14:53-0400 Systolic blood pressure 126 mm[Hg] Dr. Gerardo García Work Phone: [facility] 05-21-2023 13:11-0400 Body height 172.[address] Gerardo García Work Phone: [facility] 05-21-2023 13:11-0400 Body mass index (BMI) [Ratio] 27.6 kg/m2 Dr. Gerardo García Work Phone: [facility] 05-21-2023 13:11-0400 Body weight 82.[address] Gerardo García Work Phone: [facility] 05-20-2023 13:04-0400 Body temperature 97.5 [degF] Dr. Gerardo García Work Phone: [facility] 05-20-2023 13:04-0400 Diastolic blood pressure 70 mm[Hg] Dr. Gerardo García Work Phone: [facility] 05-20-2023 13:04-0400 Heart rate 73 /min Dr. Gerardo García Work Phone: [facility] 05-20-2023 13:04-0400 Respiratory rate 18 /min Dr. Gerardo García Work Phone: [facility] 05-20-2023 13:04-0400 SaO2% (BldA) [Mass fraction] 97 % Dr. Gerardo García Work Phone: [facility] 05-20-2023 13:04-0400 Systolic blood pressure 131 mm[Hg] Dr. Gerardo García Work Phone: [facility] 05-19-2023 13:11-0400 Body temperature 98 [degF] Dr. Gerardo García Work Phone: [facility] 05-19-2023 13:11-0400 Diastolic blood pressure 71 mm[Hg] Dr. Gerardo García Work Phone: [facility] 05-19-2023 13:11-0400 Heart rate 72 /min Dr. Gerardo García Work Phone: [facility] 05-19-2023 13:11-0400 Respiratory rate 18 /min Dr. Gerardo García Work Phone: [facility] 05-19-2023 13:11-0400 SaO2% (BldA) [Mass fraction] 97 % Dr. Gerardo García Work Phone: [facility] 05-19-2023 13:11-0400 Systolic blood pressure 130 mm[Hg] Dr. Gerardo García Work Phone: [facility] 05-18-2023 15:04-0400 Body temperature 97 [degF] Dr. Gerardo García Work Phone: [facility] 05-18-2023 15:04-0400 Diastolic blood pressure 63 mm[Hg] Dr. Gerardo García Work Phone: [facility] 05-18-2023 15:04-0400 Heart rate 74 /min Dr. Gerardo García Work Phone: 1(258)361-397382 [place] [address] 05-18-2023 15:04-0400 Respiratory rate 16 /min Dr. Gerardo García Work Phone: 4(881)496-692082 [place] [address] 05-18-2023 15:04-0400 SaO2% (BldA) [Mass fraction] 97 % Dr. Gerardo García Work Phone: 2(703)366-419782 [place] [address] 05-18-2023 15:04-0400 Systolic blood pressure 114 mm[Hg] Dr. Gerardo García Work Phone: 3(540)390-800328 [place] [address] 05-18-2023 13:55-0400 Body height 172.[address] Gerardo García Work Phone: 2(528)873-273528 [place] [address] 05-18-2023 13:55-0400 Body mass index (BMI) [Ratio] 27.3 kg/m2 Dr. Gerardo García Work Phone: 9(274)753-964882 [place] [address] 05-18-2023 13:55-0400 Body weight 81.[address] Gerardo García Work Phone: 4(294)922-656328 [place] [address] 05-17-2023 14:48-0400 Body temperature 96.4 [degF] Dr. Gerardo García Work Phone: 6(522)556-653182 [place] [address] 05-17-2023 14:48-0400 Diastolic blood pressure 65 mm[Hg] Dr. Gerardo García Work Phone: 8(828)993-161882 [place] [address] 05-17-2023 14:48-0400 Heart rate 66 /min Dr. Gerardo García Work Phone: 0(951)190-336982 [place] [address] 05-17-2023 14:48-0400 Respiratory rate 16 /min Dr. Gerardo García Work Phone: 8(541)065-973482 [place] [address] 05-17-2023 14:48-0400 SaO2% (BldA) [Mass fraction] 99 % Dr. Gerardo García Work Phone: [facility] 05-17-2023 14:48-0400 Systolic blood pressure 122 mm[Hg] Dr. Gerardo García Work Phone: [facility] 05-17-2023 13:56-0400 Body height 172.[address] Gerardo García Work Phone: [facility] 05-16-2023 15:09-0400 Body temperature 97.1 [degF] Dr. Gerardo García Work Phone: [facility] 05-16-2023 15:09-0400 Diastolic blood pressure 64 mm[Hg] Dr. Gerardo García Work Phone: [facility] 05-16-2023 15:09-0400 Heart rate 64 /min Dr. Gerardo García Work Phone: [facility] 05-16-2023 15:09-0400 Respiratory rate 16 /min Dr. Gerardo García Work Phone: [facility] 05-16-2023 15:09-0400 SaO2% (BldA) [Mass fraction] 95 % Dr. Gerardo García Work Phone: [facility] 05-16-2023 15:09-0400 Systolic blood pressure 116 mm[Hg] Dr. Gerardo García Work Phone: [facility] 05-16-2023 14:05-0400 Body height 172.[address] Gerardo García Work Phone: [facility] 05-16-2023 14:05-0400 Body mass index (BMI) [Ratio] 27.6 kg/m2 Dr. Gerardo García Work Phone: [facility] 05-16-2023 14:05-0400 Body weight 82.[address] Gerardo García Work Phone: [facility] 04-10-2023 09:17-0400 Body temperature 97.4 [degF] Dr. Gerardo García Work Phone: [facility] 04-10-2023 09:17-0400 Diastolic blood pressure 84 mm[Hg] Dr. Gerardo García Work Phone: [facility] 04-10-2023 09:17-0400 Heart rate 57 /min Dr. Gerardo García Work Phone: [facility] 04-10-2023 09:17-0400 Respiratory rate 18 /min Dr. Gerardo García Work Phone: [facility] 04-10-2023 09:17-0400 SaO2% (BldA) [Mass fraction] 99 % Dr. Gerardo García Work Phone: [facility] 04-10-2023 09:17-0400 Systolic blood pressure 130 mm[Hg] Dr. Gerardo García Work Phone: [facility] 01-24-2023 14:01-0500 Body temperature 97.5 [degF] Dr. Gerardo García Work Phone: [facility] 01-24-2023 14:01-0500 Diastolic blood pressure 59 mm[Hg] Dr. Gerardo García Work Phone: [facility] 01-24-2023 14:01-0500 Heart rate 67 /min Dr. Gerardo García Work Phone: [facility] 01-24-2023 14:01-0500 Respiratory rate 16 /min Dr. Gerardo García Work Phone: [facility] 01-24-2023 14:01-0500 SaO2% (BldA) [Mass fraction] 96 % Dr. Gerardo García Work Phone: [facility] 01-24-2023 14:01-0500 Systolic blood pressure 136 mm[Hg] Dr. Gerardo García Work Phone: [facility] 01-24-2023 11:13-0500 Body height 172.[address] Gerardo García Work Phone: [facility] 01-24-2023 11:13-0500 Body mass index (BMI) [Ratio] 29.3 kg/m2 Dr. Gerardo García Work Phone: [facility] 01-24-2023 11:13-0500 Body weight 87.[address] Gerardo García Work Phone: [facility] 01-02-2023 08:50-0500 Body temperature 96.8 [degF] Dr. Gerardo García Work Phone: [facility] 08-01-2022 10:31-0400 SaO2% (BldA) [Mass fraction] 96 % Dr. Gerardo García Work Phone: [facility] Work Phone: 08-01-2022 10:00-0400 Body temperature 97.6 [degF] Dr. Gerardo García Work Phone: [facility] Work Phone: 08-01-2022 10:00-0400 Diastolic blood pressure 80 mm[Hg] Dr. Gerardo García Work Phone: [facility] Work Phone: 08-01-2022 10:00-0400 Heart rate 83 /min Dr. Gerardo García Work Phone: [facility] Work Phone: 08-01-2022 10:00-0400 Respiratory rate 18 /min Dr. Gerardo García Work Phone: [facility] Work Phone: 08-01-2022 10:00-0400 Systolic blood pressure 150 mm[Hg] Dr. Gerardo García Work Phone: [facility] Work Phone: 08-01-2022 05:24-0400 Body weight 92.[address] Gerardo García Work Phone: [facility] Work Phone: 07-30-2022 10:06-0400 Body height 172.[address] Gerardo García Work Phone: [facility] Work Phone: 07-29-2022 16:47-0400 Body mass index (BMI) [Ratio] 29.7 kg/m2 Dr. Gerardo García Work Phone: [facility] Work Phone: 07-28-2022 08:25-0400 Body temperature 98.3 [degF] Dr. Gerardo García Work Phone: [facility] Work Phone: 07-28-2022 08:25-0400 Diastolic blood pressure 62 mm[Hg] Dr. Gerardo García Work Phone: [facility] Work Phone: 07-28-2022 08:25-0400 Heart rate 72 /min Dr. Gerardo García Work Phone: [facility] Work Phone: 07-28-2022 08:25-0400 Respiratory rate 16 /min Dr. Gerardo García Work Phone: [facility] Work Phone: 07-28-2022 08:25-0400 SaO2% (BldA) [Mass fraction] 99 % Dr. Gerardo García Work Phone: [facility] Work Phone: 07-28-2022 08:25-0400 Systolic blood pressure 109 mm[Hg] Dr. Gerardo García Work Phone: [facility] Work Phone: 07-28-2022 06:35-0400 Body height 172.[address] Gerardo García Work Phone: [facility] Work Phone: 07-28-2022 06:35-0400 Body mass index (BMI) [Ratio] 29.7 kg/m2 Dr. Gerardo García Work Phone: [facility] Work Phone: 07-28-2022 06:35-0400 Body weight 88.[address] Gerardo García Work Phone: [facility] Work Phone: 07-04-2022 14:24-0400 Body height 172.[address] Gerardo García Work Phone: [facility] Work Phone: 07-04-2022 14:17-0400 Body mass index (BMI) [Ratio] 29.8 kg/m2 Dr. Gerardo García Work Phone: [facility] Work Phone: 07-04-2022 14:17-0400 Body temperature 97.6 [degF] Dr. Gerardo García Work Phone: [facility] Work Phone: 07-04-2022 14:17-0400 Body weight 89.[address] Gerardo García Work Phone: [facility] Work Phone: 07-04-2022 14:17-0400 Diastolic blood pressure 83 mm[Hg] Dr. Gerardo García Work Phone: [facility] Work Phone: 07-04-2022 14:17-0400 Heart rate 73 /min Dr. Gerardo García Work Phone: [facility] Work Phone: 07-04-2022 14:17-0400 Respiratory rate 15 /min Dr. Gerardo García Work Phone: [facility] Work Phone: 07-04-2022 14:17-0400 SaO2% (BldA) [Mass fraction] 97 % Dr. Gerardo García Work Phone: [facility] Work Phone: 07-04-2022 14:17-0400 Systolic blood pressure 160 mm[Hg] Dr. Gerardo García Work Phone: [facility] Work Phone: 12-30-2021 14:55-0500 Body temperature 97.9 [degF] Dr. Gerardo García Work Phone: [facility] Work Phone: 12-30-2021 14:55-0500 Diastolic blood pressure 63 mm[Hg] Dr. Gerardo García Work Phone: [facility] Work Phone: 12-30-2021 14:55-0500 Heart rate 68 /min Dr. Gerardo García Work Phone: [facility] Work Phone: 12-30-2021 14:55-0500 Respiratory rate 16 /min Dr. Gerardo García Work Phone: [facility] Work Phone: 12-30-2021 14:55-0500 SaO2% (BldA) [Mass fraction] 92 % Dr. Gerardo García Work Phone: [facility] Work Phone: 12-30-2021 14:55-0500 Systolic blood pressure 137 mm[Hg] Dr. Gerardo García Work Phone: [facility] Work Phone: 12-30-2021 12:10-0500 Body height 172.[address] Gerardo García Work Phone: [facility] Work Phone: 12-30-2021 12:10-0500 Body mass index (BMI) [Ratio] 28.1 kg/m2 Dr. Gerardo García Work Phone: [facility] Work Phone: 12-30-2021 12:10-0500 Body weight [address] Gerardo García Work Phone: [facility] Work Phone: 12-05-2021 14:35-0500 Body mass index (BMI) [Ratio] 27.9 kg/m2 Dr. Gerardo García Work Phone: [facility] Work Phone: 12-05-2021 14:35-0500 Body temperature 97.6 [degF] Dr. Gerardo García Work Phone: [facility] Work Phone: 12-05-2021 14:35-0500 Body weight 83.[address] Gerardo García Work Phone: [facility] Work Phone: 12-05-2021 14:35-0500 Diastolic blood pressure 83 mm[Hg] Dr. Gerardo García Work Phone: [facility] Work Phone: 12-05-2021 14:35-0500 Heart rate 87 /min Dr. Gerardo García Work Phone: [facility] Work Phone: 12-05-2021 14:35-0500 Respiratory rate 16 /min Dr. Gerardo García Work Phone: [facility] Work Phone: 12-05-2021 14:35-0500 SaO2% (BldA) [Mass fraction] 96 % Dr. Gerardo García Work Phone: [facility] Work Phone: 12-05-2021 14:35-0500 Systolic blood pressure 150 mm[Hg] Dr. Gerardo García Work Phone: [facility] Work Phone: 11-29-2021 13:30-0500 Body temperature 98.4 [degF] Dr. Gerardo García Work Phone: [facility] Work Phone: 11-29-2021 13:30-0500 Diastolic blood pressure 74 mm[Hg] Dr. Gerardo García Work Phone: [facility] Work Phone: 11-29-2021 13:30-0500 Heart rate 74 /min Dr. Gerardo García Work Phone: [facility] Work Phone: 11-29-2021 13:30-0500 Respiratory rate 16 /min Dr. Gerardo García Work Phone: [facility] Work Phone: 11-29-2021 13:30-0500 SaO2% (BldA) [Mass fraction] 93 % Dr. Gerardo García Work Phone: [facility] Work Phone: 11-29-2021 13:30-0500 Systolic blood pressure 127 mm[Hg] Dr. Gerardo García Work Phone: [facility] Work Phone: 11-29-2021 08:29-0500 Body mass index (BMI) [Ratio] 28.3 kg/m2 Dr. Gerardo García Work Phone: [facility] Work Phone: 11-29-2021 08:29-0500 Body weight 84.[address] Gerardo García Work Phone: [facility] Work Phone: 05-31-2021 15:25-0400 Body mass index (BMI) [Ratio] 27.1 kg/m2 Dr. Gerardo García Work Phone: [facility] Encounters Encounter Date Encounter Type Care Provider Facility Start: 09-29-2025 ambulatory Gerardo Chi Ricky Facility:[facility] Start: 09-25-2025 ambulatory Gerardo Chi Ricky Facility:[facility] Start: 09-24-2025 ambulatory Gerardo Chi Ricky Facility:[facility] Start: 09-23-2025 ambulatory Gerardo Chi Ricky Facility:[facility] Start: 09-15-2025 End: 09-15-2025 ambulatory Gerardo Chi Ricky Facility:[facility] Start: 09-03-2025 End: 09-03-2025 ambulatory Gerardo Chi Ricky Facility:[facility] Start: 09-01-2025 End: 09-01-2025 ambulatory JONA CLARK Facility:[id number] Start: 08-03-2025 End: 08-03-[address] Gerardo García MD Work Phone: -Laboratory Phy Office 3rd Flr Start: 08-03-2025 End: 08-03-[address] Gerardo García MD -Laboratory Phy Office 3rd Flr Start: 08-03-2025 End: 08-03-2025 ambulatory [facility] Facility:[facility] Start: 07-13-2025 ambulatory [facility] Start: 07-09-2025 End: 07-09-2025 ambulatory CHEIKH HIGH Facility:[id number] Start: 07-08-2025 End: 07-08-2025 Telephone encounter Obi Felix APRN.CNP Work Phone: Urology Comment on above: Patient Update Start: 07-06-2025 End: 07-06-[address] Gerardo García MD Work Phone: -Laboratory Phy Office 3rd Flr Start: 07-06-2025 End: 07-06-[address] Gerardo García MD -Laboratory Phy Office 3rd Flr Start: 07-06-2025 End: 07-06-2025 ambulatory [facility] Facility:[facility] Start: 06-15-2025 End: 06-15-2025 ambulatory UNKNOWN PROVIDER Facility:[id number] Start: 04-20-2025 End: 04-20-2025 ambulatory GHULAM RIVERA Facility:[id number] Start: 04-15-2025 End: 04-15-[address] Gerardo García MD Work Phone: [facility] Work Phone: Start: 04-15-2025 End: 04-15-[address] Luz Maria Matthews DO -Laboratory Work Phone: Start: 04-15-2025 End: 04-15-2025 ambulatory [facility] Facility:[facility] Start: 03-20-2025 End: 03-20-[address] Gerardo García MD -Laboratory Specimen Work Phone: Start: 03-20-2025 End: 03-20-2025 ambulatory [facility] Facility:[facility] Start: 03-03-2025 End: 03-03-2025 Patient encounter procedure Cristina DEY -[facility] Work Phone: Start: 03-03-2025 End: 03-03-2025 ambulatory Gerardo Garcaí Facility:[facility] Start: 02-23-2025 End: 02-23-2025 ambulatory CHEIKH HIGH Facility:[id number] Start: 02-02-2025 End: 02-02-[address] Gerardo García MD Work Phone: [facility] Work Phone: Start: 02-02-2025 End: 02-02-[address] Gerardo García MD -Laboratory, Phy Office 3rd Flr Start: 02-02-2025 End: 02-02-2025 ambulatory [facility] Facility:[facility] Start: 01-27-2025 [id number] Start: 01-27-2025 End: 01-27-2025 Subsequent hospital visit by physician [facility] Comment on above: Nephrostomy tube ble ed ([facility]) [T83.83XA] Start: 01-27-2025 End: 01-27-2025 Office outpatient new 30 minutes Obi Ruffin SHOP WELDER.TRANSITIONS RN CARE COORDINATOR Work Phone: Urology Comment on above: Nephrostomy tube ble ed (HCC) (Primary Dx) Start: 01-27-2025 End: 01-27-2025 ambulatory OBI RUFFIN Facility:[id number] Start: 01-26-2025 End: 01-26-2025 ambulatory Injection[facility] Comment on above: Sepsis secondary to UTI (HCC) (HCC) (Primary Dx) Start: 01-23-2025 End: 01-23-2025 ambulatory In[facility] Comment on above: Sepsis secondary to UTI (HCC) (HCC) (Primary Dx) Start: 01-13-2025 End: 01-13-2025 Telephone encounter Jin Antonio MD Work Phone: Urology Start: 01-12-2025 End: 01-19-2025 Evaluation and management of inpatient GERARDO CAIO RICKY Facility:[id number] Start: 01-12-2025 End: 01-12-2025 ambulatory [facility] Facility:[id number] Start: 01-07-2025 End: 01-07-[address] Rajesh Olvera MD -Laboratory Work Phone: Start: 01-07-2025 End: 01-07-2025 ambulatory [facility] Facility:[facility] Start: 12-22-2024 End: 12-22-2024 Patient encounter procedure Jin Antonio MD Work Phone: Urology Comment on above: Hydronephrosis, unsp ecified hydronephrosis type [N13.30] (Primary Dx) Start: 12-22-2024 End: 12-22-2024 ambulatory JIN ANTONIO Facility:[id number] Start: 11-17-2024 End: 11-17-2024 ambulatory JONA CLARK Facility:[id number] Start: 11-07-2024 End: 11-07-2024 Telephone encounter Jin Antonio MD Work Phone: Urology Comment on above: Patient Question Start: 11-03-2024 End: 11-03-[address] Gerardo García MD -Laboratory, Phy Office 3rd Flr Start: 11-03-2024 End: 11-03-2024 ambulatory [facility] Facility:[facility] Start: 10-27-2024 End: 10-27-[address] Gerardo García MD -Laboratory, Phy Office 3rd Flr Start: 10-27-2024 End: 10-27-2024 ambulatory [facility] Facility:[facility] Start: 09-29-2024 End: 09-29-2024 Subsequent hospital visit by physician Ghulam Rivera DO Work Phone: [facility] Comment on above: Other hydronephrosis [N13.39] Start: 08-29-2024 End: 09-01-2024 Telephone encounter Jin Antonio MD Work Phone: Urology Comment on above: Medical Administrative Specialist - O ther (Nephrostomy tube supplies ) [...] End: 06-16-2024 Subsequent hospital visit by physician Magno Campbell MD Work Phone: [facility] Comment on above: Hydronephrosis, unsp ecified hydronephrosis type [N13.30] Start: 06-15-2024 Telephone encounter Andres salgado MD Work Phone: MR PROVIDER ADULT Comment on above: Medical Administrative Specialist - C hronic Care (Set up for L NT reinsertion) Start: 05-13-2024 End: 05-13-2024 Subsequent hospital visit by physician Jona Clark MD Work Phone: [facility] Comment on above: Hydronephrosis, unsp ecified hydronephrosis type [N13.30] Start: 04-23-2024 Telephone encounter Obi oscar APRN.CNP Work Phone: Urology Comment on above: Patient Question Start: 03-18-2024 End: 03-18-2024 Orders Only Prabha Miguel SHOP WELDER.TRANSITIONS RN CARE COORDINATOR Work Phone: Urology Comment on above: Hydronephrosis of le ft kidney (Primary Dx) Orders; Patient Upda te Hydronephrosis, unsp ecified hydronephrosis type [N13.30] Start: 03-17-2024 Telephone encounter Jin Antonio MD Work Phone: Urology Comment on above: Appointment Orders Start: 03-17-2024 End: 03-17-[address] Gerardo García Work Phone: [facility] Work Phone: Start: 03-17-2024 End: 03-17-[address] Gerardo García Work Phone: [facility] Work Phone: Start: 03-11-2024 End: 03-11-[address] Gerardo García Work Phone: [facility] Work Phone: Start: 03-03-2024 End: 03-03-2024 Patient encounter procedure Jin Antonio MD Work Phone: Urology Comment on above: Bilateral hydronephr osis (Primary Dx); LULY (acute kidney injury) ([facility]) Start: 02-17-2024 Non-patient / Non-visit Dr. Lenny García Work Phone: [facility] Work Phone: Start: 02-16-2024 Non-patient / Non-visit Dr. Lenny García Work Phone: [facility] Work Phone: Start: 02-15-2024 Telephone encounter Jin Antonio MD Work Phone: Urology Comment on above: Patient Question Start: 02-15-2024 Non-patient / Non-visit Dr. Lenny García Work Phone: [facility] Work Phone: Start: 02-14-2024 End: 02-17-2024 Evaluation and management of inpatient Dr. Gerardo García Work Phone: [facility] 3 Work Phone: Start: 02-11-2024 Telephone encounter iJn Antonio MD Work Phone: Urology Start: 02-06-2024 Patient encounter status Linwood Antonio MD Work Phone: [facility] Work Phone: Start: 02-04-2024 End: 02-04-[address] Gerardo García Work Phone: [facility] Work Phone: Start: 02-04-2024 End: 02-04-[address] Gerardo García Work Phone: [facility], Phy Office 3rd Flr Start: 01-22-2024 Orders Only Prabha Miguel SHOP WELDER.TRANSITIONS RN CARE COORDINATOR Work Phone: Urology Comment on above: Bilateral hydronephr osis (Primary Dx) Start: 01-10-2024 End: 01-10-2024 Home visit Breann Woods RN Work Phone: [facility] Comment on above: SN AGENCY DC W VISIT Start: 01-03-2024 End: 01-03-2024 Home visit Breann Woods RN Work Phone: [facility] Comment on above: SN ROUTINE Start: 01-01-2024 ambulatory GERARDO GARCÍA Facility:[facility] Start: 01-01-2024 End: 01-01-2024 Subsequent hospital visit by physician Edwina Patel MD Work Phone: [facility] Comment on above: Bilateral hydronephr osis [N13.30] Start: 12-27-2023 End: 12-27-2023 Home visit Breann Woods RN Work Phone: [facility] Comment on above: [...] Home visit Emanuel Curtis RN Work Phone: [facility] Comment on above: CARE COORDINATION Start: 12-21-2023 Telephone encounter Jin nAtonio MD Work Phone: Urology Comment on above: Patient Question Start: 12-20-2023 Telephone encounter Joey Mendez i, RN Work Phone: [facility] Comment on above: Home Care (Drainage from right nephrostomy tube site, HTN) Start: 12-20-2023 End: 12-20-2023 Home visit Joey Strange RN Work Phone: [facility] Comment on above: SN ROUTINE Start: 11-16-2023 End: 11-17-2023 Emergency department patient visit Dr. Gerardo García Work Phone: [facility] Work Phone: Start: 11-13-2023 Non-patient / Non-visit Dr. Lenny García Work Phone: [facility] Work Phone: Start: 11-13-2023 Dr. Gerardo García Work Phone: [facility] Work Phone: Start: 11-12-2023 Non-patient / Non-visit Dr. Lenny García Work Phone: [facility] Work Phone: Start: 11-12-2023 Dr. Gerardo García Work Phone: [facility] Work Phone: Start: 11-11-2023 Non-patient / Non-visit Dr. Lenny García Work Phone: [facility] Work Phone: Start: 11-11-2023 Dr. Gerardo García Work Phone: [facility] Work Phone: Start: 11-10-2023 End: 11-13-2023 Evaluation and management of inpatient Dr. Gerardo García Work Phone: [facility] Work Phone: Start: 11-10-2023 End: 11-13-2023 Dr. Gerardo [facility]ía [facility]: Start: 11-06-2023 End: 11-06-2023 Emergency department patient visit Dr. Gerardo García Work Phone: [facility] Work Phone: Start: 11-06-2023 End: 11-06-2023 Dr. Gerardo García Work Phone: [facility] Work Phone: Start: 10-30-2023 End: 10-30-[address] Gerardo García Work Phone: [facility] Work Phone: Start: 10-30-2023 End: 10-30-[address] Gerardo García Work Phone: [facility], Phy Office 3rd Flr Start: 10-30-2023 End: 10-30-2023 Dr. Gerardo García [facility] Start: 10-23-2023 End: 10-23-[address] Gerardo García Work Phone: [facility] Work Phone: Start: 10-23-2023 End: 10-23-[address] Gerardo García [facility] Start: 10-23-2023 End: 10-23-2023 Dr. Gerardo García [facility] Start: 10-22-2023 Telephone encounter Andres salgado MD Work Phone: Urology Comment on above: Stent Start: 10-09-2023 End: 10-09-2023 Emergency department patient visit Dr. Gerardo García Work Phone: [facility] Work Phone: Start: 10-09-2023 End: 10-09-2023 Dr. Gerardo García Work Phone: [facility] Work Phone: Start: 10-08-[address] Gerardo García Work Phone: [facility], y Office 3rd Flr Start: 10-08-2023 End: 10-08-2023 Dr. Gerardo García [facility] Start: 10-05-2023 End: 10-05-[address] Gerardo García Work Phone: [facility] Work Phone: Start: 10-05-2023 End: 10-05-[address] Gerardo García [facility] Start: 10-05-2023 End: 10-05-2023 Dr. Gerardo García Work Phone: [facility], Phy Office 3rd Flr Start: 09-25-[address] Gerardo boyer Work Phone: [facility] Start: 09-25-2023 Dr. Gerardo García Work Phone: [facility] Start: 09-22-2023 Non-patient / Non-visit Dr. Lenny García Work Phone: [facility] Work Phone: Start: 09-22-2023 Dr. Gerardo García Work Phone: [facility] Work Phone: Start: 09-21-2023 Non-patient / Non-visit Dr. Lneny García Work Phone: [facility] Work Phone: Start: 09-21-2023 Dr. Gerardo García Work Phone: [facility] Work Phone: Start: 09-20-2023 Non-patient / Non-visit Dr. Lenny Gracía Work Phone: [facility] Work Phone: Start: 09-20-2023 Dr. Gerardo García Work Phone: [facility] Work Phone: Start: 09-19-2023 Non-patient / Non-visit Dr. Lenny García Work Phone: [facility] Work Phone: Start: 09-19-2023 End: 09-22-2023 Evaluation and management of inpatient Dr. Gerardo García Work Phone: [facility] 3 Work Phone: Start: 09-19-2023 End: 09-22-2023 Dr. Gerardo García [facility] Work Phone: Start: 08-17-2023 End: 08-17-[address] Gerardo García [facility] Work Phone: Start: 08-17-2023 End: 08-17-2023 Dr. Gerardo García [facility] Work Phone: Start: 08-14-[address] Gerardo boyer Work Phone: [facility] Work Phone: Start: 08-14-2023 Dr. Gerardo García Work Phone: [facility] Work Phone: Start: 08-10-2023 End: 08-10-[address] Gerardo García Work Phone: [facility] Work Phone: Start: 08-10-2023 End: 08-10-[address] Gerardo García [facility] Start: 08-10-2023 End: 08-10-2023 Dr. Gerardo García [facility]: Start: 08-07-2023 Non-patient / Non-visit Dr. Lenny García Work Phone: [facility] Work Phone: Start: 08-07-2023 Dr. Gerardo García Work Phone: [facility] Work Phone: Start: 08-06-2023 Non-patient / Non-visit Dr. Lenny García Work Phone: [facility] Work Phone: Start: 08-06-2023 Dr. Gerardo García Work Phone: [facility] Work Phone: Start: 08-05-2023 Non-patient / Non-visit Dr. Lenny García Work Phone: [facility] Work Phone: Start: 08-05-2023 Dr. Gerardo García Work Phone: [facility] Work Phone: Start: 08-04-2023 Non-patient / Non-visit Dr. Lenny García Work Phone: [facility] Work Phone: Start: 08-04-2023 Dr. Gerardo Gacría Work Phone: [facility] Work Phone: Start: 08-03-2023 Non-patient / Non-visit Dr. Lenny García Work Phone: [facility] Work Phone: Start: 08-03-2023 Dr. Gerardo García Work Phone: [facility] Work Phone: Start: 08-02-2023 End: 08-07-2023 Evaluation and management of inpatient Dr. Gerardo García [facility] Work Phone: Start: 08-02-2023 End: 08-07-2023 Dr. Gerardo García [facility] Work Phone: Start: 07-20-2023 End: 07-20-[address] Gerardo García Work Phone: [facility] Work Phone: Start: 07-20-2023 End: 07-20-[address] Gerardo García [facility] Work Phone: Start: 07-20-2023 End: 07-20-2023 Dr. Gerardo García [facility] Work Phone: Start: 06-19-2023 End: 06-19-[address] Gerardo García Work Phone: [facility] Work Phone: Start: 06-19-2023 End: 06-19-[address] Gerardo García [facility] 3rd Flr Start: 06-19-2023 End: 06-19-2023 Dr. Gerardo García Work Phone: [facility], [facility] 3rd Flr Start: 06-11-2023 End: 06-11-[address] Gerardo García Work Phone: [facility] Work Phone: Start: 06-11-2023 End: 06-11-[address] Gerardo García [facility]: Start: 06-11-2023 End: 06-11-2023 Dr. Gerardo García [facility]: Start: 06-08-2023 End: 06-08-2023 Admission to same day surgery center Dr. Gerardo García [facility] Start: 06-07-2023 End: 06-07-[address] Gerardo García [facility]: Start: 06-06-2023 End: 06-06-[address] Gerardo García Work Phone: [facility] Work Phone: Start: 06-06-2023 End: 06-06-[address] Gerardo García Work Phone: [facility] Work Phone: Start: 06-05-2023 End: 06-05-[address] Gerardo García Work Phone: [facility] Work Phone: Start: 06-05-2023 End: 06-05-[address] Gerardo García [facility]: Start: 05-28-2023 End: 05-28-[address] Gerardo García Work Phone: [facility] Work Phone: Start: 05-28-2023 End: 05-28-[address] Gerardo García Work Phone: [facility], Specimen Work Phone: Start: 05-22-2023 End: 05-22-[address] Gerardo García Work Phone: [facility] Work Phone: Start: 05-22-2023 End: 05-22-[address] Gerardo García [facility]: Start: 05-21-2023 End: 05-21-[address] Gerardo García Work Phone: [facility] Work Phone: Start: 05-21-2023 End: 05-21-[address] Gerardo García [facility]: Start: 05-20-2023 End: 05-20-[address] Gerardo García Work Phone: [facility] Work Phone: Start: 05-20-2023 End: 05-20-[address] Gerardo García Work Phone: [facility] Work Phone: Start: 05-19-2023 End: 05-19-[address] Gerardo García Work Phone: [facility] Work Phone: Start: 05-19-2023 End: 05-19-[address] Gerardo García Work Phone: [facility] Work Phone: Start: 05-18-2023 End: 05-18-[address] Gerardo García [facility]: Start: 05-17-2023 End: 05-17-[address] Gerardo García Work Phone: [facility] Work Phone: Start: 05-17-2023 End: 05-17-[address] Gerardo García [facility]: Start: 05-16-2023 End: 05-16-[address] Gerardo García Work Phone: [facility] Work Phone: Start: 05-16-2023 End: 05-16-[address] Gerardo García [facility]: Start: 05-14-2023 End: 05-14-[address] Gerardo García Work Phone: [facility] Work Phone: Start: 05-14-2023 End: 05-14-[address] Gerardo García Work Phone: [facility]/Neurology Start: 05-11-2023 End: 05-11-[address] Gerardo García Work Phone: [facility] Work Phone: Start: 05-11-2023 End: 05-11-[address] Gerardo García Work Phone: [facility], Specimen Start: 05-10-2023 End: 05-10-[address] Gerardo García Work Phone: [facility] Work Phone: Start: 05-10-2023 End: 05-10-[address] Gerardo García Work Phone: [facility], Specimen Start: 04-10-2023 End: 04-10-[address] Gerardo García Work Phone: [facility] Start: 04-03-2023 End: 04-03-[address] Gerardo García Work Phone: [facility], [facility] Start: 03-27-2023 End: 03-27-[address] Gerardo García Work Phone: [facility] Start: 02-22-2023 End: 02-22-[address] Gerardo García Work Phone: [facility]Rad[facility], [facility] Start: 01-24-2023 End: 01-24-2023 Admission to same day surgery center Dr. Gerardo García Work Phone: [facility] Start: 01-22-2023 End: 01-22-[address] Gerardo García Work Phone: [facility] Work Phone: Start: 01-22-2023 End: 01-22-[address] Gerardo García [facility] 3[facility] Flr Start: 01-22-2023 End: 01-22-[address] Gerardo García Work Phone: [facility] Work Phone: Start: 01-22-2023 End: 01-22-[address] Gerardo García [facility] Start: 01-02-2023 End: 01-02-[address] Gerardo García Work Phone: [facility] Work Phone: Start: 01-02-2023 End: 01-02-[address] Gerardo García [facility] Start: 01-02-2023 End: 01-02-[address] Gerardo García Work Phone: [facility] Start: 12-05-2022 End: 12-05-[address] Gerardo García Work Phone: [facility] Work Phone: Start: 12-05-2022 End: 12-05-[address] Gerardo García Work Phone: [facility] Start: 10-30-2022 End: 10-30-[address] Gerardo García [facility] 3[facility] Flr Start: 10-27-2022 End: 10-27-[address] Gerardo García Work Phone: [facility] Work Phone: Start: 10-27-2022 End: 10-27-[address] Gerardo García [facility] Start: 10-02-2022 End: 10-02-[address] Gerardo García Work Phone: [facility] Work Phone: Start: 10-02-2022 End: 10-02-[address] Gerardo García [facility] Start: 09-20-2022 End: 09-20-[address] Gerardo García Work Phone: [facility] Start: 09-18-2022 End: 09-18-[address] Gerardo García Work Phone: [facility] Work Phone: Start: 09-18-2022 End: 09-18-[address] Gerardo García [facility] Start: 08-28-2022 End: 08-28-[address] Gerardo García [facility] Start: 08-03-2022 End: 08-03-[address] Gerardo García [facility] Fl[facility] Start: 08-01-2022 Non-patient / Non-visit Dr. Lenny García Work Phone: [facility] Start: 07-31-2022 Non-patient / Non-visit Dr. Lenny García Work Phone: [facility] Start: 07-30-2022 Non-patient / Non-visit Dr. Lenny García Work Phone: [facility] Start: 07-29-2022 Non-patient / Non-visit Dr. Lenny García Work Phone: [facility] Start: 07-29-2022 End: 08-01-2022 Evaluation and management of inpatient Dr. Gerardo García [facility] Start: 07-28-2022 End: 07-28-2022 Admission to same day surgery center Dr. Gerardo García [facility] Start: 07-28-2022 End: 07-28-[address] Gerardo García Work Phone: [facility] Work Phone: Start: 07-21-2022 End: 07-21-[address] Gerardo García Work Phone: [facility] Work Phone: Start: 07-21-2022 End: 07-21-[address] Gerardo García Work Phone: [facility] Start: 07-04-[address] Gerardo boyer Work Phone: [facility] Start: 07-04-2022 End: 07-04-[address] Gerardo García Work Phone: [facility] Start: 05-15-2022 End: 05-15-[address] Gerardo García Work Phone: [facility] Start: 05-12-2022 End: 05-12-[address] Gerardo García Work Phone: [facility], [facility] Start: 05-02-2022 End: 05-02-[address] Gerardo García Work Phone: [facility], Phy Office 3rd Flr Start: 04-11-2022 End: 04-11-[address] Gerardo García Work Phone: [facility] Start: 03-20-2022 End: 03-20-[address] Gerardo García Work Phone: [facility], [employer] Office 3rd Flr Start: 03-15-2022 End: 03-15-[address] Gerardo García Work Phone: [facility] Start: 02-16-2022 End: 02-16-[address] eGrardo García Work Phone: [facility] Start: 02-14-2022 End: 02-14-[address] Gerardo García Work Phone: [facility] Start: 01-26-2022 End: 01-26-[address] Gerardo García Work Phone: [facility], [employer] Office 3rd Flr Start: 01-19-2022 End: 01-19-[address] Gerardo García Work Phone: [facility], [employer] Office 3rd Flr Start: 01-16-2022 End: 01-16-[address] Gerardo García Work Phone: [facility] Start: 12-30-2021 End: 12-30-2021 Admission to same day surgery center Dr. Gerardo García [facility] Start: 12-28-2021 End: 12-28-[address] Gerardo García Work Phone: [facility] Start: 12-08-2021 End: 12-08-[address] Gerardo García Work Phone: [facility], y Office 3rd Flr Start: 12-07-2021 End: 12-07-[address] Gerardo García Work Phone: [facility] Start: 12-06-2021 End: 12-06-[address] Gerardo García Work Phone: [facility]Labor[facility], Specimen Start: 12-05-2021 End: 12-05-2021 Emergency department patient visit Dr. Gerardo García Work Phone: [facility]Emergency Department Start: 11-29-2021 Non-patient / Non-visit Dr. Lenny García Work Phone: [facility] Start: 11-29-2021 End: 11-29-2021 Admission to same day surgery center Dr. Gerardo García [facility] Start: 11-10-[address] Gerardo García Work Phone: [facility] Services/Neurology Start: 11-08-[address] Gerardo García Work Phone: [facility]Labor[facility], Phy Office 3rd Flr Start: 11-02-2021 End: 11-02-[address] Gerardo García Work Phone: [facility] Start: 11-01-[address] Gerardo García [facility] Start: 06-11-2018 End: 06-11-2018 Emergency department patient visit MARINA [place] Facility:[facility] Procedures Date Procedure Procedure Detail [...] Exchange nephrostomy catheter prq w/img gid rs&i ed Kolby Palmer MD Work Phone: Start: 02-15-2024 US urinary [...] Work Phone: Start: 06-08-2023 Fluoroscopic guidance D malathi García Work Phone: Start: 05-28-2023 Urine culture [...] García Work Phone: Start: 01-24-2023 Fluoroscopic guidance D malathi García Work Phone: Start: 01-22-2023 Influenza Types A,B Direct FA (LEVI) Dr. Gerardo García Work Phone: Start: 01-22-2023 Respiratory syncytia l virus antigen assay Dr. Gerardo García Work Phone: Start: 07-29-2022 [place] chest X-ray Dr. Zahra García Work Phone: Start: 07-28-2022 Introduction to urin [place] tract Dr. Gerardo García Work Phone: Start: 07-28-2022 Fluoroscopic guidance D r. Gerardo García Work Phone: Start: 05-12-2022 Plain chest X-ray Dr. Zahra García Work Phone: Start: 02-16-[address] Gerardo boyer Work Phone: Start: 01-26-2022 Plain chest X-ray Dr. Zahra García Work Phone: Start: 01-19-[address] Gerardo boyer Work Phone: Start: 01-19-2022 Diagnostic radiograp hy of abdomen, decubitus and erect Dr. Gerardo García Work Phone: Start: 12-30-2021 O.R. Fluoro for C-Arm D rJavy García Work Phone: Start: 12-08-2021 Bacteria identified [...] Author Start: 01-20-2028 Diabetes Screening Diabetes Screening [facility] Start: 01-12-2028 Diabetes Screening Diabetes Screening [facility] Start: 12-06-2027 Diabetes Screening Diabetes Screening [facility] Start: 09-08-2027 Diabetes Screening Diabetes Screening [facility] Start: 06-19-2027 Diabetes Screening Diabetes Screening [facility] Start: 12-24-2026 Diabetes Screening Diabetes Screening [facility] Start: 11-24-2026 Diabetes Screening Diabetes Screening [facility] Start: 10-12-2026 Diabetes Screening Diabetes Screening [facility] Start: 01-19-2026 Creatinine measurement Serum Creatinine [facility] Start: 01-16-2026 Complete blood count Hemoglobin/Hematocrit [facility] Start: 12-28-2025 End: 12-28-2025 Patient encounter procedure 12/28/2025 8:45 AM EST Office Visit Urology [address] [place], [place] [phone] Jin Antonio MD [address] [place], [place] [id number] 1 year follow up Urology Comment on above: 1 year follow up Start: 08-11-2025 End: 08-11-2025 Admission to same day surgery center 08/11/2025 10:00 AM EDT - 08/11/2025 11:20 AM EDT Surgery MR INTERVENTIONAL RADIOLOGY [address] [facility] [place] [address] Rocío Palmer MD, MD [address] [place] [address] Bilateral Neph tube exchange - [...] Encounter MR INTERVENTIONAL RADIOLOGY [address] [place] [address] Rcoío Palmer MD, MD [address] [place] [address] Hydronephrosis, unspecified hydronephrosis type [N13.30] MR INTERVENTIONAL RADIOLOGY Comment on above: Hydronephrosis, unspecified hydronephros is type [N13.30] Start: 07-20-2025 Influenza vaccination Influenza Vaccine (#1) [facility] Start: 07-09-2025 End: 07-09-2025 Admission to same day surgery center 07/09/2025 1:32 PM EDT - 07/09/2025 2:02 PM EDT Surgery MR INTERVENTIONAL RADIOLOGY [address] [place] [address] [place] [address] [facility] [address] [place], [place] [id number] neph tube check/exchange MR INTERVENTIONAL RADIOLOGY Comment [...] Encounter MR INTERVENTIONAL RADIOLOGY [address] [place] [address] [place], [address] [facility] [address] [place], [place] [phone] Hydronephrosis, unspecified hydronephrosis type [N13.30] MR INTERVENTIONAL RADIOLOGY Comment on above: Hydronephrosis, unspecified hydronephros is type [N13.30] Start: 07-06-2025 Urine culture Urine Culture [facility] Start: 07-06-2025 [facility] Start: 03-30-2025 End: 03-30-2025 Patient encounter procedure 03/30/2025 9:45 AM EDT Office Visit Urology [address] [place], [place] [address] Jin Antonio MD [address] [place], [place] [id number] f/u 2 months Urology Comment on above: f/u 2 months Start: 03-02-2025 End: 03-02-2025 Patient encounter procedure 03/02/2025 11:00 AM EDT Office Visit Urology [address] [place], [place] [id number] Jin Antonio MD [address] [place], [place] [phone] 6 month f/u Urology Comment on above: [...] Encounter MR INTERVENTIONAL RADIOLOGY [address] [place] [address] [place] [address] [facility] , [address] [address] Hydronephrosis, unspecified hydronephrosis type [N13.30] MR INTERVENTIONAL RADIOLOGY Comment on above: Hydronephrosis, unspecified hydronephros is type [N13.30] Start: 01-27-2025 End: 02-26-2026 XR Abdomen Supine and Upright [facility] Work Phone: Comment on above: Expected: 01/27/2025, Expires: Start: 01-27-2025 End: 01-27-2025 Patient encounter procedure 01/27/2025 8:40 AM EDT Office Visit Urology [address] [place] [address] Obi Ruffin, SHOP WELDER.TRANSITIONS RN CARE COORDINATOR [address] [place] [address] f/u per ML Urology Comment on above: f/u per ML Start: 01-26-2025 End: 01-26-2025 ambulatory 01/26/2025 3:15 PM EDT Infusion Center Infusion Center [address] [place] [address] [facility] Infusion Center Comment on above: [facility] Start: 01-14-2025 Guidance for exchange of nephrostomy tube of Kidney IR NEPH TUBE CHANGE Radiology Routine Hydronephrosis, unspecified hydronephrosis type [N13.30] Expected: 01/14/2025 (Approximate) [facility] Comment on above: Expected: 01/14/2025 (Approximate) Start: 01-12-2025 End: 01-12-2025 Admission to same day surgery center 01/12/2025 8:00 AM EST - 01/12/2025 9:00 AM EST Surgery MR INTERVENTIONAL RADIOLOGY [address] [place] [address] Rocío Palmer MD, [address] [place] [address] PERC EXCHANGE NEPHROSTOMY CATH, INCLUDING DIAGNOSTIC NEPHROSTOGRAM/URETEROG [...] Encounter MR INTERVENTIONAL RADIOLOGY [address] [place] [address] Rocío Palmer MD, MD [address] [place] [address] Hydronephrosis, unspecified hydronephrosis type [N13.30] MR INTERVENTIONAL RADIOLOGY Comment on above: Hydronephrosis, unspecified hydronephros is type [N13.30] Start: 01-03-2025 BP Controlled (<130/80) BP Controlled (<130/80) [facility] Start: 11-19-2024 Advance Directive Discussion Advance Directive Discussion [facility] Start: 11-19-2024 Medicare Advantage Annual Wellness Visit Medicare Advantage Annual Wellness Visit [facility] Start: 11-17-2024 End: 11-17-2024 Admission to same day surgery center 11/17/2024 8:00 AM EST - 11/17/2024 9:00 AM EST Surgery MR INTERVENTIONAL RADIOLOGY [address] [place] [address] [place] [address] [facility] , [address] [place] [address] PERC EXCHANGE NEPHROSTOMY CATH, INCLUDING DIAGNOSTIC NEPHROSTOGRAM/URETEROG [...] Encounter MR INTERVENTIONAL RADIOLOGY [address] [place] [address] [place] [address] [facility] , [address] [place], [place] [id number] Bilateral hydronephrosis [N13.30] MR INTERVENTIONAL RADIOLOGY Comment on above: Bilateral hydronephrosis [N13.30] Start: 09-29-2024 End: 09-29-2024 Admission to same day surgery center 09/29/2024 10:00 AM EST - 09/29/2024 11:00 AM EST Surgery MR INTERVENTIONAL RADIOLOGY [address] [place] [address] [place], [address] [facility] [place] [address] PERC EXCHANGE NEPHROSTOMY CATH, INCLUDING DIAGNOSTIC [...] Encounter MR INTERVENTIONAL RADIOLOGY [address] [place] [address] [place], [address] [facility] [address] [place], [place] [id number] Other hydronephrosis [N13.39] MR INTERVENTIONAL RADIOLOGY Comment on above: Other hydronephrosis [N13.39] Start: 09-02-2024 End: 09-02-2024 Admission to same day surgery center 09/02/2024 10:00 AM EDT - 09/02/2024 11:00 AM EDT Surgery MR INTERVENTIONAL RADIOLOGY [address] [place] [address] [place] [address] [facility] [place] [address] PERC EXCHANGE NEPHROSTOMY CATH, INCLUDING DIAGNOSTIC NEPHROSTOGRAM/URETEROG [...] Encounter MR INTERVENTIONAL RADIOLOGY [address] [place] [address] [place] [address] [facility] [place] [address] Other hydronephrosis [N13.39] MR INTERVENTIONAL RADIOLOGY Comment on above: Other hydronephrosis [N13.39] Start: 07-29-2024 Subsequent hospital visit by physician 07/29/2024 Hospital Encounter [facility] Surgery [address] [facility] [address] Jin Antonio MD [address] [facility] [place] [address] Bilateral hydronephrosis [N13.30] [facility] Surgery Comment on above: Bilateral hydronephrosis [N13.30] Start: 07-20-2024 Covid-19 Vaccine ( season) Covid-19 Vaccine ( season) [facility] Start: 07-20-2024 Influenza vaccination [facility] Start: 07-08-2024 End: 07-08-2024 Admission to same day surgery center 07/08/2024 10:00 AM EDT - 07/08/2024 10:30 AM EDT Surgery MR INTERVENTIONAL RADIOLOGY [address] [facility] [address] [place] [address] [address] bilateral nephrostomy tube exchange MR INTERVENTIONAL RADIOLOGY Comment on above: bilateral nephrostomy tube exchange Start: 07-08-2024 Subsequent hospital visit by physician 07/08/2024 10:00 AM EDT Hospital Encounter MR INTERVENTIONAL RADIOLOGY [address] [facility] [address] [place] [address] [address] Hydronephrosis, unspecified hydronephrosis type [N13.30] MR INTERVENTIONAL RADIOLOGY Comment on above: Hydronephrosis, unspecified hydronephros is type [N13.30] Start: 07-08-2024 End: 07-08-2024 Exchange nephrostomy catheter prq w/img gid rs&i MR IR Start: 07-07-2024 End: 07-07-2024 Patient encounter procedure 07/07/2024 11:15 AM EDT Office Visit Urology [address] [place], [place] [phone] Jin Antonio MD [address] [facility] [place] [place] [phone] 4 month follow up - (Neph Tube [...] Surgery MR INTERVENTIONAL RADIOLOGY [address] [place] [address] [place] [address] [address] PERC EXCHANGE NEPHROSTOMY CATH, INCLUDING [...] Encounter MR INTERVENTIONAL RADIOLOGY [address] [place] [address] [place] [address] [address] Hydronephrosis, unspecified hydronephrosis type [N13.30] MR INTERVENTIONAL RADIOLOGY Comment on above: Hydronephrosis, unspecified hydronephros is type [N13.30] Start: 04-08-2024 End: 04-08-2024 Admission to same day surgery center 04/08/2024 8:00 AM EDT - 04/08/2024 8:45 AM EDT Surgery MR INTERVENTIONAL RADIOLOGY [address] [place] [address] Rocío Palmer MD, [address] [place] [address] PERC EXCHANGE NEPHROSTOMY CATH, INCLUDING DIAGNOSTIC NEPHROSTOGRAM/URETEROG [...] Encounter MR INTERVENTIONAL RADIOLOGY [address] [place] [address] Rocío Palmer MD, [address] [place] [address] Hydronephrosis, unspecified hydronephrosis type [N13.30] MR INTERVENTIONAL RADIOLOGY Comment on above: Hydronephrosis, unspecified hydronephros is type [N13.30] Start: 03-18-2024 End: 03-18-2024 Plmt nephrostomy cath prq new access rs&i PERC PLACEMENT NEPHROSTOMY CATH,INCLUDING DIAGNOSTIC NEPHROSTOGRAM/URETEROG CORRINA WHEN PERFORMED,IMAGING GUIDANCE AND ALL ASSOCIATED RAD S&I Hydronephrosis, unspecified hydronephrosis type 03/18/2024 2:53 PM EDT MR IR Start: 02-17-2024 Patient discharge [facility] Start: 02-14-2024 Application of intermittent pneumatic compression device [facility] Start: 02-14-2024 Assessment of risk of venous thromboembolism [facility] Start: 02-14-2024 Insertion of catheter into peripheral vein [facility] Start: 02-14-2024 Measuring intake and output [facility] Start: 02-14-2024 Providing care according to standard [facility] Start: 02-14-2024 Provision of activity privileges [facility] Start: 02-14-2024 Referral to service [facility] Start: 02-14-2024 [facility] Start: 02-14-2024 Following clinical pathway protocol [facility] Start: 02-14-2024 Verification routine [facility] Start: 02-14-2024 Admission procedure [facility] Start: 02-14-2024 Hospital admission, emergency, from emergency room, medical nature [facility] Start: 02-14-2024 End: 02-14-2024 [facility] Start: 02-14-2024 End: 02-14-2024 Blood culture [facility] Start: 02-14-2024 Bacteria identified in Blood by Culture Blood Culture [facility] Start: 02-14-2024 Bacteria identified in Urine by Culture [facility] Start: 02-14-2024 Urine culture Urine Culture [facility] Start: 11-19-2023 Advance Directive Discussion Advance Directive Discussion [facility] Start: 11-19-2023 Behavioral Health Screening Behavioral Health Screening [facility] Start: 11-19-2023 Depression Assessment Depression Assessment [facility] Start: 11-17-2023 [facility] Start: 11-16-2023 [facility] Start: 11-13-2023 Patient discharge [facility] Start: 11-10-2023 Following clinical pathway protocol [facility] Start: 11-10-2023 Cardiac monitoring [facility] Start: 11-10-2023 Catheterization of vein [facility] Start: 11-10-2023 Notification of physician [facility] Start: 11-10-2023 Admission procedure [facility] Start: 11-10-2023 Hospital admission, emergency, from emergency room, medical nature [facility] Start: 11-10-2023 End: 11-10-2023 [facility] Start: 11-10-2023 End: 11-10-2023 Blood culture [facility] Start: 11-06-2023 [facility] Start: 11-06-2023 End: 11-06-2023 [facility] Start: 10-09-2023 [facility] Start: 10-09-2023 End: 10-09-2023 [facility] Start: 10-09-2023 End: 10-09-2023 Blood culture [facility] Start: 10-08-2023 Blood culture [facility] Start: 10-08-2023 End: 10-08-2023 [facility] Start: 10-08-2023 Bacteria identified in Blood by Culture Blood Culture [facility] Start: 10-08-2023 Urine culture [facility] Start: 09-29-2023 Blood chemistry [facility] Start: 09-28-2023 Blood chemistry [facility] Start: 09-27-2023 Blood chemistry [facility] Start: 09-26-2023 Blood chemistry [facility] Start: 09-25-2023 Blood chemistry [facility] Start: 09-24-2023 Blood chemistry [facility] Start: 09-23-2023 Blood chemistry [facility] Start: 09-22-2023 Patient discharge [facility] Start: 09-20-2023 Consultation [facility] Start: 09-20-2023 Inhalation therapy procedure [facility] Start: 09-19-2023 Blood culture [facility] Start: 09-19-2023 Application of intermittent pneumatic compression device [facility] Start: 09-19-2023 Following clinical pathway protocol [facility] Start: 09-19-2023 Assessment of risk of venous thromboembolism [facility] Start: 09-19-2023 Consultation [facility] Start: 09-19-2023 Insertion of catheter into peripheral vein [facility] Start: 09-19-2023 Measuring intake and output [facility] Start: 09-19-2023 Notification of physician [facility] Start: 09-19-2023 Providing care according to standard [facility] Start: 09-19-2023 Provision of activity privileges [facility] Start: 09-19-2023 Vital signs measurements [facility] Start: 09-19-2023 [facility] Start: 09-19-2023 Bacteria identified in Blood by Culture Blood Culture [facility] Start: 09-19-2023 Bacteria identified in Urine by Culture Urine Culture [facility] Start: 09-19-2023 Verification routine [facility] Start: 09-19-2023 Admission procedure [facility] Start: 09-19-2023 Hospital admission, emergency, from emergency room, medical nature [facility] Start: 09-19-2023 [facility] Start: 09-19-2023 Enteric precautions [facility] Start: 09-19-2023 Patient referral to dietitian [facility] Start: 08-07-2023 Referral to service [facility] Start: 08-07-2023 Patient discharge [facility] Start: 08-07-2023 [facility] Start: 08-06-2023 Referral to service [facility] Start: 08-05-2023 Consultation [facility] Start: 08-02-2023 Consultation [facility] Start: 08-02-2023 Following clinical pathway protocol [facility] Start: 08-02-2023 Assessment of risk of venous thromboembolism [facility] Start: 08-02-2023 Inhalation therapy procedure [facility] Start: 08-02-2023 Insertion of catheter into peripheral vein [facility] Start: 08-02-2023 Measuring intake and output [facility] Start: 08-02-2023 Providing care according to standard [facility] Start: 08-02-2023 Provision of activity privileges [facility] Start: 08-02-2023 [facility] Start: 08-02-2023 Admission procedure [facility] Start: 07-20-2023 Covid-19 Vaccine ( season) Covid-19 Vaccine () [facility] Start: 07-20-2023 Influenza vaccination Influenza Vaccine (#1) [facility] Start: 06-08-2023 Anes transurethral w/urethrocystoscopy nos ANESTH BLADDER SURGERY [facility] Start: 06-08-2023 Cysto w/insert ureteral stent CYSTOSCOPY AND TREATMENT [facility] Start: 06-08-2023 Ambulation without limitation [facility] Start: 06-08-2023 Medication education [facility] Start: 06-08-2023 Patient discharge [facility] Start: 06-08-2023 Taking patient vital signs [facility] Start: 06-08-2023 [facility] Start: 06-06-2023 Iv infusion therapy/prophylaxis /dx 1st to 1 hr THER/PROPH/DIAG IV INF INIT [facility] Start: 05-28-2023 Urine culture Urine Culture [facility] Start: 05-28-2023 [facility] Start: 05-22-2023 Iv infusion therapy/prophylaxis /dx 1st to 1 hr THER/PROPH/DIAG IV INF INIT [facility] Start: 05-22-2023 Following clinical pathway protocol [facility] Start: 05-19-2023 Following clinical pathway protocol [facility] Start: 05-16-2023 Iv infusion therapy/prophylaxis /dx 1st to 1 hr THER/PROPH/DIAG IV INF INIT [facility] Start: 01-24-2023 Anes transurethral w/urethrocystoscopy nos ANESTH BLADDER SURGERY [facility] Start: 01-24-2023 Cysto w/insert ureteral stent CYSTOSCOPY AND TREATMENT [facility] Start: 01-24-2023 Ambulation without limitation [facility] Start: 01-24-2023 Medication education [facility] Start: 01-24-2023 Patient discharge [facility] Start: 01-24-2023 Taking patient vital signs [facility] Start: 01-24-2023 [facility] Start: 11-19-2022 Advance Directive Discussion Advance Directive Discussion [facility] Start: 11-19-2022 Depression Assessment Depression Assessment [facility] Start: 09-18-2022 [facility] Work Phone: Start: 08-01-2022 Patient discharge [facility] Work Phone: Start: 07-31-2022 [facility] Work Phone: Start: 07-30-2022 Following clinical pathway protocol [facility] Work Phone: Start: 07-30-2022 Consultation [facility] Work Phone: Start: 07-30-2022 Following clinical pathway protocol [facility] Work Phone: Start: 07-30-2022 Referral to service [facility] Work Phone: Start: 07-30-2022 Referral to occupational therapist [facility] Work Phone: Start: 07-29-2022 Assessment of risk of venous thromboembolism [facility] Work Phone: Start: 07-29-2022 Consultation [facility] Work Phone: Start: 07-29-2022 Documentation procedure [facility] Work Phone: Start: 07-29-2022 Incentive spirometry [facility] Work Phone: Start: 07-29-2022 Inhalation therapy procedure [facility] Work Phone: Start: 07-29-2022 Insertion of catheter into peripheral vein [facility] Work Phone: Start: 07-29-2022 Introduction of urinary catheter [facility] Work Phone: Start: 07-29-2022 Measuring intake and output [facility] Work Phone: Start: 07-29-2022 Oxygen therapy [facility] Work Phone: Start: 07-29-2022 Providing care according to standard [facility] Work Phone: Start: 07-29-2022 Provision of activity privileges [facility] Work Phone: Start: 07-29-2022 [facility] Work Phone: Start: 07-29-2022 Admission procedure [facility] Work Phone: Start: 07-29-2022 End: 07-29-2022 Blood culture [facility] Work Phone: Start: 07-28-2022 Anes transurethral w/urethrocystoscopy nos ANESTH BLADDER SURGERY [facility] Work Phone: Start: 07-28-2022 Cysto w/insert ureteral stent CYSTOSCOPY AND TREATMENT [facility] Work Phone: Start: 07-28-2022 Ambulation without limitation [facility] Work Phone: Start: 07-28-2022 Medication education [facility] Work Phone: Start: 07-28-2022 Patient discharge [facility] Work Phone: Start: 07-28-2022 Taking patient vital signs [facility] Work Phone: Start: 07-28-2022 [facility] Work Phone: Start: 03-20-2022 Urine culture Urine Culture [facility] Work Phone: Start: 12-30-2021 Anes transurethral w/urethrocystoscopy nos ANESTH BLADDER SURGERY [facility] Work Phone: Start: 12-30-2021 Cysto w/insert ureteral stent CYSTOSCOPY AND TREATMENT [facility] Work Phone: Start: 11-29-2021 Anesthesia vascular shunt/shunt revision ANESTH VASCULAR SHUNT SURG [facility] Work Phone: Start: 12-29-2020 Pneumococcal Vaccine: 50+ (2 of 2 - PCV) Pneumococcal Vaccine: 50+ (2 of 2 - PCV) [facility] Start: 12-29-2020 Pneumococcal Vaccine: 65+ (2 - PCV) Pneumococcal Vaccine: 65+ (2 - PCV) [facility] Start: 12-29-2020 Pneumococcal Vaccine: 65+ (2 of 2 - PCV) Pneumococcal Vaccine: 65+ (2 of 2 - PCV) [facility] Start: 2017 Bone Density Screening Bone Density Screening [facility] Start: 2017 Screening for osteoporosis Bone Density Screening [facility] Start: 2012 RSV Vaccine (1 - 1-dose 60+ series) RSV Vaccine (1 - 1-dose 60+ series) [facility] Start: 2012 RSV Vaccine (1 - Risk 60-74 years 1-dose series) RSV Vaccine (1 - Risk 60-74 years 1-dose series) [facility] Start: 2002 Shingrix Vaccine (1 of 2) Shingrix Vaccine (1 of 2) [facility] Start: 1997 Cologuard (FIT-DNA) Cologuard (FIT-DNA) [facility] Start: 1997 Colonoscopy Colonoscopy [facility] Start: 1997 Colorectal Cancer Screening Colorectal Cancer Screening [facility] Start: [address] Colonography [facility] Start: 1997 Fecal Occult Blood Fecal Occult Blood [facility] Start: 1997 Lipid 1996 panel - Serum or Plasma Lipid Screening [facility] Start: 1997 Lipid panel Lipid Screening [facility] Start: 1997 Screening for malignant neoplasm of colon [facility] Start: 1997 Sigmoidoscopy Sigmoidoscopy [facility] Start: 1992 Mammography Mammogram Screening [facility] Start: 1992 Screening for malignant neoplasm of breast Mammogram Screening [facility] Start: 1971 Urine microalbumin profile DTaP,Tdap,Td Vaccine (1 - Tdap) [facility] Start: 1970 Annual PCP Team Chronic Disease Visit Annual PCP Team Chronic Disease Visit [facility] Start: 1970 Anxiety Screening Anxiety Screening [facility] Start: 1970 BP Controlled (<130/80) BP Controlled (<130/80) [facility] Start: 1970 Depression Screening Depression Screening [facility] Start: 1970 Hepatitis C Screening Hepatitis C Screening [facility] Start: 1970 Hepatitis C screening Hepatitis C Screening [facility] Start: 1970 Spirometry Spirometry [facility] Bacteria identified in Blood by Culture Blood Culture [facility] Work Phone: Clostridioides diffi cile DNA [Presence] in Unspecified specimen by BOBBI with probe detection [facility] Cysto w/insert urete ral stent CYSTOSCOPY, INSERTION STENT URETERAL J Bilateral hydronephrosis MR OR Gastrointestinal pathogens panel - Stool by BOBBI with probe detection [facility] Guidance for dilatio n of existing nephrostomy tract and placement of nephrostomy tube at new site of Kidney IR NEPHROSTOMY CONSULT Radiology Routine Other hydronephrosis Ordered: 06/15/2024 [facility] Work Phone: Comment on above: Ordered: 06/15/2024 Guidance for exchang e of nephrostomy tube of Kidney IR NEPH TUBE CHANGE Radiology Routine Bilateral hydronephrosis Ordered: 01/22/2024 [facility] Work Phone: Comment on above: Ordered: 01/22/2024 Guidance for exchang e of nephrostomy tube of Kidney IR NEPH TUBE CHANGE Radiology Timed Bilateral hydronephrosis Ordered: 03/03/2024 [facility] Work Phone: Comment on above: Ordered: 03/03/2024 Guidance for exchang e of nephrostomy tube of Kidney IR NEPH TUBE CHANGE Radiology Routine Hydronephrosis, unspecified hydronephrosis type Ordered: 07/08/2025 [facility] Work Phone: Comment on above: Ordered: 07/08/2025 Guidance for percuta neous placement of nephrostomy tube of Kidney IR NEPHROSTOMY TUBE PLACE Radiology Routine Bilateral hydronephrosis Ordered: 02/09/2024 [facility] Work Phone: Comment on above: Ordered: 02/09/2024 Guidance for percuta neous placement of nephrostomy tube of Kidney IR NEPHROSTOMY TUBE PLACE Radiology STAT Hydronephrosis of left kidney Ordered: 03/18/2024 [facility] Work Phone: Comment on above: Ordered: 03/18/2024 IR NEPHROSTOGRAM IR NEPHROSTOGRA M Radiology Routine Bilateral hydronephrosis Ordered: 12/24/2023 [facility] Work Phone: Comment on above: Ordered: 12/24/2023 Lactoferrin [Presenc e] in Stool by Immunoassay [facility] Ova and parasites identified in Unspecified specimen by Light microscopy [facility] Patient Education [facility] Work Phone: Patient referral [facility] Work Phone: UA DIP, URINE (POC) UA DIP, URIN E (POC) Lab Routine Hydronephrosis, unspecified hydronephrosis type [N13.30] Ordered: 12/22/2024 [facility] Work Phone: Comment on above: Ordered: 12/22/2024 Urine culture Urine Culture [facility] Work Phone: [facility] MR OR [facility] Immunizations Immunization Date Immunization Notes Care Provider Fa [facility] 11-08-2021 Covid (Moderna) Dr. Gerardo García Work Phone: [facility] 08-09-2021 influenza, injectabl e, quadrivalent, preservative free Dr. Gerardo García Work Phone: [facility] 08-09-2021 influenza, seasonal, injectable Dr. Gerardo García Work Phone: [facility] 08-09-2021 influenza virus vacc ine, unspecified formulation Andres Wyatt MD Work Phone: [facility] 05-11-2021 Covid (Guille & Guille) Dr. Gerardo García Work Phone: [facility] 08-10-2020 influenza, injectabl e, quadrivalent, preservative free Dr. eGrardo García Work Phone: [facility] 08-10-2020 influenza, seasonal, injectable Dr. Gerardo García Work Phone: [facility] 08-04-[address] Gerardo García Work Phone: [facility] 12-29-2019 pneumococcal polysaccharide vaccine, [address] Gerardo García Work Phone: [facility] 06-30-2019 pneumococcal polysaccharide vaccine, [address] Gerardo García Work Phone: [facility] 11-23-2017 influenza, injectabl e, quadrivalent, preservative free Dr. Gerardo García Work Phone: [facility] 11-23-2017 influenza, seasonal, injectable Dr. Gerardo García Work Phone: [facility] Payers Date Payer Category Payer Self-pay [id number] 2019 Medicare HUMANA MEDICARE HUMANA GOLD PLUS [id number] 2019-Present [phone] [address] [place] [id number] O [id number] 2019 Medicare (Managed Care) HUMANA G OLD PLUS [id number] 2019 Medicare [id number] 1950 Unknown [id number]. 278 Medicaid [id number] Medicare [id number] Medicare [id number] Unknown [id number] 2..[id number]. 462 Unknown [id number] 2..[id number]. 462 Unknown [id number] 2.0.1.900785.3.579.2. 462 Unknown [id number] 2.0.1.525103.3.579.2. 462 Unknown [id number] 2.16.840.1.997208.3.579.2. 462 Unknown [id number] 2.16.840.1.522126.3.579.2. 462 Unknown [id number] 2.16.840.1.659814.3.579.2. 462 Unknown [id number] 2.16.840.1.694709.3.579.2. 462 Unknown [id number] 2.16.840.1.826469.3.579.2. 462 Unknown [id number] 2.16.840.1.989801.3.579.2. 462 Unknown [id number] 2.16.840.1.414262.3.579.2. 462 Unknown [id number] 2.16.840.1.481320.3.579.2. 462 Unknown [id number] 2.16.840.1.949312.3.579.2. 462 Unknown [id number] 2.16.840.1.341846.3.579.2. 462 Unknown [id number] 2.16.840.1.904632.3.579.2. 462 Unknown [id number] 2.16.840.1.084442.3.579.2. 462 Unknown [id number] 2.16.840.1.134250.3.579.2. 462 Unknown [id number] [id number]. 462 Social History Date Type Detail Facility Start: 12-05-2021 End: 02-14-2024 Tobacco smoking status MIIS Unknown if ever smoked [facility] Start: 09-23-2020 None [facility] Start: 12-19-2020 Spouse/ Signif icant Other [facility] Start: 02-21-2021 Non-smoker [facility] Start: 1950 Sex Assigned At Female W [facility] Start: 01-04-2015 End: 09-06-2024 Tobacco smoking status NHIS Ex-smoker [facility] Start: 11-19-2007 End: 01-04-2008 History of tobacco use Current smoker [facility] Start: 11-19-2007 End: 01-04-2008 History of tobacco use Cigarette Smoker [facility] Start: 01-04-2015 End: 08-11-2024 Tobacco use and exposure Smokeless tobacco non-user [facility] Start: 10-11-2023 End: 11-26-2023 History of Social function [facility] Start: 10-11-2023 End: 11-26-2023 Tobacco use panel [facility] How hard is it for y ou to pay for the very basics like food, housing, medical care, and heating Not very hard [facility] (I/We) worried wheth er (my/our) food would run out before (I/we) got money to buy more. Never true [facility] Start: 10-20-2012 In the past 12 month s, has lack of transportation kept you from medical appointments or from getting medications? No [facility] In the past 12 month s, was there a time when you were not able to pay the mortgage or rent on time? No [facility] Start: 1950 Sex Assigned At Not on file [facility] Start: 02-11-2024 End: 06-15-2025 Alcohol intake Lifetime non-drinker (finding) [facility] Start: 02-10-2025 Sex Female (finding) [facility] NEGATED: Highlighted row [facility] NEGATED: Highlighted rowStart: NINF History of tobacco use Passive smoker [facility] Medical Equipment Procedure Code Equipment [...] FDA Start: 12-30-2021 Cystoscopic insertion of stent ([id number]) ([id number] FDA Start: 07-28-2022 Cystoscopic insertion of [...] fistula SUTURE,LIGA CLIP SM LT-100 FDA Start: 01-11-2022 Creation, AV fistula SUTURE,LIGA CLIP SM LT-100 [...] Curve Filiform Black Stainless Steel Vinyl - [id number] Start: 10-11-2023 FDA Start: 12-14-2018 FDA [...] Curve Filiform Black Stainless Steel Vinyl - [id number] Start: 10-11-2023 STENT,URETERAL PIGTAIL [id number] FDA Start: 12-14-2018 STENT,URETERAL PIGTAIL [id number] FDA Start: 12-14-2018 STENT,URETERAL PIGTAIL [id number] FDA Start: 01-14-2020 STENT,URETERAL PIGTAIL [id number] FDA Start: 01-14-2020 STENT,URETERAL PIGTAIL [id number] FDA Start: 05-28-2020 STENT,URETERAL PIGTAIL [id number] FDA Start: 05-28-2020 Set 6fr .038in 2 Pigtail Curve Filiform Black Stainless Steel Vinyl - [id number] Start: 02-07-2024 Set 6fr .038in 2 Pigtail Curve Filiform Black Stainless Steel Vinyl - [id number] Start: 02-07-2024 STENT,URETERAL PIGTAIL [id number] FDA [...] 01/19/2025 1:25 PM Soumya Coppola RN No [facility] 01-19-2025 Are you blind, or do you have serious difficulty seeing, even when wearing glasses No 01/19/2025 1:25 PM Soumya Coppola RN No [facility] 01-19-2025 Do you have serious difficulty walking or climbing stairs No 01/19/2025 1:25 PM Soumya Coppola RN No [facility] 01-19-2025 Do you have difficul ty dressing or bathing No 01/19/2025 1:25 PM Soumya Coppola RN [facility] 01-19-2025 Because of a physica l, mental, or emotional condition, do you have difficulty doing errands alone such as visiting a physician's office or shopping No 01/19/2025 1:25 PM Soumya Coppola RN No [facility] 12-06-2024 Are you deaf, or do you have serious difficulty hearing No 12/06/2024 3:34 PM Joyce Quach RN No [facility] 12-06-2024 Are you blind, or do you have serious difficulty seeing, even when wearing glasses No 12/06/2024 3:34 PM Joyce Quach RN No [facility] 12-06-2024 Do you have serious difficulty walking or climbing stairs No 12/06/2024 3:34 PM Joyce Quach RN No [facility] 12-06-2024 Do you have difficul ty dressing or bathing No 12/06/2024 3:34 PM Joyce Quach RN No [facility] 12-06-2024 Because of a physica l, mental, or emotional condition, do you have difficulty doing errands alone such as visiting a physician's office or shopping No 12/06/2024 3:34 PM Joyce Quach RN No [facility] 02-17-2024 Functional status Up ad javier;Bath room Privilege [facility] Work Phone: 11-13-2023 Functional status Standby Assist [facility] Work Phone: 11-12-2023 Functional status Bathroom Privilege [facility] Work Phone: 09-22-2023 Functional status Independent [facility] Work Phone: 09-21-2023 Functional status Ambulates [facility] Work Phone: 08-07-2023 Functional status Ambulates;Up ad javier [facility] Work Phone: 08-06-2023 Functional status None [facility] Work Phone: 08-01-2022 Functional status Ambulates [facility] Work Phone: 12-30-2021 Functional status Ambulates [facility] Work Phone: Mental Status Date Assessment Result Facility 01-19-2025 Because of a physica l, mental, or emotional condition, do you have serious difficulty concentrating, remembering, or making decisions No 01/19/2025 1:25 PM Soumya Coppola RN No [facility] 12-06-2024 Because of a physica l, mental, or emotional condition, do you have serious difficulty concentrating, remembering, or making decisions No 12/06/2024 3:34 PM Joyce Quach RN No [facility] 02-17-2024 Cognitive function Voice/Name [facility] Work Phone: 11-16-2023 Cognitive function Level Of Cons ciousness Awake;Alert;Appropriate;Fol lows Commands [facility] Work Phone: 11-13-2023 Cognitive function Voice/Name [facility] Work Phone: 11-10-2023 Cognitive function Awake;Alert;A ppropriate;Fol lows Commands [facility] Work Phone: 10-09-2023 Cognitive function Awake;Alert;A ppropriate;Fol lows Commands [facility] Work Phone: 09-21-2023 Cognitive function Voice/Name [facility] Work Phone: 09-19-2023 Cognitive function Level Of Cons ciousness Awake;Alert;Appropriate;Fol lows Commands [facility] Work Phone: 08-07-2023 Cognitive function Voice/Name [facility] Work Phone: 06-08-2023 Cognitive function Level Of Cons ciousness Awake [facility] Work Phone: 06-07-2023 Cognitive function Voice/Name [facility] Work Phone: 06-06-2023 Cognitive function Voice/Name [facility] Work Phone: 06-05-2023 Cognitive function Voice/Name [facility] Work Phone: 05-21-2023 Cognitive function Voice/Name [facility] Work Phone: 05-18-2023 Cognitive function Voice/Name [facility] Work Phone: 05-17-2023 Cognitive function Voice/Name [facility] Work Phone: 05-16-2023 Cognitive function Voice/Name [facility] Work Phone: 01-24-2023 Cognitive function Voice/Name [facility] Work Phone: 08-01-2022 Cognitive function Voice/Name [facility] Work Phone: 07-28-2022 Cognitive function Voice/Name [facility] Work Phone: 07-28-2022 Cognitive function Patient Jordyn issa Person;Place;Time [facility] Work Phone: 12-30-2021 Cognitive function Voice/Name [facility] Work Phone: 11-29-2021 Cognitive function Voice/Name [facility] Work Phone: Clinical Notes 08-30-2015 to 07-08-2025 Telephone Encounter - Obi Felix APRN.CAROLYNE - 07/08/2025 9:36 AM EDTTelephone Encounter - Obi Felix APRN.CAROLYNE - 07/08/2025 9:36 AM EDT Note Date [...] ED She is currently on Cipro Thanks Obi Felix APRN.TRANSITIONS RN CARE COORDINATOR [facility] 07-08-2025 Miscellaneous Notes Formattin g [...] ED She is currently on Cipro Thanks Obi Felix APRN.CAROLYNE Pt calling sts she feels terrible, L tube is out she is being treated for UTI and just doesn't feel good. Please advise patient. Aide Archer documented in this encounter [facility] 07-08-2025 Telephone encount er Note Pt calling sts she feels terrible, L tube is out she is being treated for UTI and just doesn't feel good. Please advise patient. Aide Archer [facility] 07-08-2025 Telephone encount er Note I called patient and discussed recommendation for IR exchange on L side if unable to get into IR today will have her go to ED. I called radiology and left VM to call back, if they do, please me know so I can talk to them Thanks Obi Felix APRN.TRANSITIONS RN CARE COORDINATOR [facility] Work Phone: 07-08-2025 Miscellaneous Notes [...] so I can talk to them Thanks Obi Felix APRN.CNP documented in this encounter [facility] 03-03-2025 Evaluation note Diagnosis Onset Date Resolution AV fistula acute March 03 10:51am [facility] Work Phone: 1(808) 694-823203-11-2025 NoteHNO ID: [id number] Author: OBI RUFFIN APRN.CNP Service: ? Author Type: Nurse Practitioner Type: Progress Notes Filed: 01/27/2025 15:19 Note Text: KUB reviewed. Left PNT appears to be in correct positioning. Educated on s/s of malpositioned PNT and of when to go to the ER. Pt verbalized understanding.[facility]03-11-2025 History of Present illness Narrative* Obi Ruffin APRN.CNP - 01/27/2025 3:18 PM EDT KUB reviewed. Left PNT appears to be in correct positioning. Educated on s/s of malpositioned PNT and of when to go to the ER. Pt verbalized understanding. * Obi Ruffin APRN.CNP - 01/27/2025 8:49 AM EDT Images from the original note were not included. 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 FAXED for copy Renal failure [...] Dr. 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, no longer follows with fitter/welder LX REMOVAL RENAL MASS NEPHROSTOMY TUBE [place] 2022 PAST SURGICAL HISTORY OF gallbladder PAST [...] Anaphylaxis Prednisone Unknown Only allergic to Methylprednisone Edwrdzd-Zyn-Fpe Red* Anaphylaxis Medications Current Outpatient Medications Medication [...] tube with no hydronephrosis. 3. Colonic diverticulosis. Field Sales Executive: PSCB Transcribe Date/Time: Dec 05 2024 4:36A Dictated by : JOSE ANTONIO FRIAS MD This examination was interpreted and the report reviewed and electronically signed by: JOSE ANTONIO FRIAS MD on Dec 05 2024 4:57AM EST No results found. An electronic signature was used to authenticate this note. Please note that portions of this chart were dictated using [employer] electronic voice recognition software. It is possible that typos and/or omissions and/or substitutions of words and/or phrases may exist, which may alter the intended meaning of the dictating provider. Obi Ruffin APRN [facility] [place] [employer] History of Present illness Narrative* Aixa Guzman RT(R) - 01/27/2025 9:30 AM EDT [...] PATIENT PRESENTS WITH AN IMPLANTABLE OR ATTACHED TREE DOCTOR: No RADIOLOGY DEPARTMENT: General X-ray: Exam(s) Completed: Abdomen X-Ray: Abdomen PERIPHERAL IV DATA: Not applicable SIGNED BY: RT Bienvenido(R) January 27, 2025 9:42 AM * Aixa Guzman RT(R) - 01/27/2025 9:30 AM EDT [...] PATIENT PRESENTS WITH AN IMPLANTABLE OR ATTACHED TREE DOCTOR: No RADIOLOGY DEPARTMENT: General X-ray: Exam(s) Completed: Abdomen X-Ray: Abdomen PERIPHERAL IV DATA: Not applicable SIGNED BY: RT Bienvenido(Doug) January 27, 2025 9:43 AM [facility]25 NoteHNO ID: [id number] Author: AIXA GUZMAN RT(Doug) Service: Radiology Author Type: Technologist Type: Progress Notes Filed: 01/27/2025 09:43 Note Text: Radiology Service Progress Note PATIENT NAME: Todd Delong DATE OF SERVICE: January 27, 2025 TIME: 9:42 AM PATIENT IDENTITY VERIFICATION COMPLETED USING TWO (2) IDENTIFIERS: Name and Date of confirmed by patient verbally and Name and Date of confirmed by identification band. FALL SCREENING: Has the patient had 2 falls in the last year or 1 fall with injury or currently using an Ambulatory Assistive Device (Walker, Cane, Wheelchair, Crutches, etc.)? No PATIENT GENDER DATA: Assigned female at . status: : No status: NO. PATIENT RELEVANT IMPLANT DATA REVIEWED: Not Applicable PATIENT PRESENTS WITH AN IMPLANTABLE OR ATTACHED TREE DOCTOR: No RADIOLOGY DEPARTMENT: General X-ray: Exam(s) Completed: Abdomen X-Ray: Abdomen PERIPHERAL IV DATA: Not applicable SIGNED BY: GOSIA Faria) January 27, 2025 9:42 [facility]03-11-2025 NoteHNO ID: [id number] Author: AIXA GUZMAN RT(R) Service: Radiology Author Type: Technologist Type: Progress Notes Filed: 01/27/2025 09:43 Note Text: Radiology Service Progress Note PATIENT NAME: Todd Delong DATE OF SERVICE: January 27, 2025 TIME: 9:43 AM PATIENT IDENTITY VERIFICATION COMPLETED USING TWO (2) IDENTIFIERS: Name and Date of confirmed by patient verbally and Name and Date of confirmed by identification band. FALL SCREENING: Has the patient had 2 falls in the last year or 1 fall with injury or currently using an Ambulatory Assistive Device (Walker, Cane, Wheelchair, Crutches, etc.)? No PATIENT GENDER DATA: Assigned female at . status: : No status: NO. PATIENT RELEVANT IMPLANT DATA REVIEWED: Not Applicable PATIENT PRESENTS WITH AN IMPLANTABLE OR ATTACHED TREE DOCTOR: No RADIOLOGY DEPARTMENT: General X-ray: Exam(s) Completed: Abdomen X-Ray: Abdomen PERIPHERAL IV DATA: Not applicable SIGNED BY: RT Bienvenido(R) January 27, 2025 9:43 [facility]03-11-2025 NoteHNO ID: [id number] Author: OBI RUFFIN APRN.TRANSITIONS RN CARE COORDINATOR Service: ? Author Type: Nurse Practitioner Type: Progress Notes Filed: 01/27/2025 15:19 Note Text: [facility] [place] [facility] [place] [facility] [place] [facility] [address] PATIENT NAME: Todd Delong DATE OF : 1950 TODAY'S DATE: 01/27/2025 CHIEF COMPLAINT: Patient presents with: Follow Up: Pt says she has pulled out left tube in back Assessment AND Plan: Assessment AND Plan Nephrostomy tube bleed (HCC) - no [...] MEDICAL HISTORY Diagnosis Date Arthritis Asthma no rand maker Benign paroxysmal positional vertigo Cancer (HCC) years ago, cervical, radiation Difficult intravenous access CAN ONLY USE RIGHT ARM H/O: Dunbar's palsy MANY YEARS AGO, 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 FAXED for copy Renal failure [...] Dr. 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, no longer follows with fitter/welder LX REMOVAL RENAL MASS NEPHROSTOMY TUBE [place] 2022 PAST SURGICAL HISTORY OF gallbladder PAST [...] Anaphylaxis Prednisone Unknown Only allergic to Methylprednisone Fhouqul-Tzh-Tfm Red* Anaphylaxis Medications Current Outpatient Medications Medication [...] syringe 10 mL, OTHER, DAILY Urinary Bag ([place] URINARY DRAINAGE SYSTEM) misc 2 Bags, Miscell. (Med.Supl.;Non-Drugs), NEEDED Physical Exam Constitutional: In no acute distress. Well appearing. Genitourinary: Right PNT draining yellow urine. Left PNT draining yellow urine without bright red hematuria. No bilateral CVA/suprapubic tenderness. Imaging: CT - CT ABD/PEL WO IVCON Result Date: 12/05/2024 IMPRESSION: 1. Severe left-sided hydroureteronephrosis. 2. Right-sided percutaneous nephrostomy tube with no hydronephrosis. 3. Colonic diverticulosis. Field Sales Executive: LADARIUS Transcribe Date/Time: Dec 05 2024 4:36A Dictated by : JOSE ANTONIO FRIAS MD This examination was interpreted and the report reviewed and electronically signed by: JOSE ANTONIO FRIAS MD on Dec 05 2024 4:57AM EST No results found. An electronic signature was (more content not included)...[facility] 01-26-2025 NoteHNO ID: [id number] Author: RENETTA STILES RN Service: ? Author Type: Registered Nurse Type: Progress Notes Filed: 01/26/2025 15:49 Note Text: Patient reports that she snagged her L [...] she will contact patient when orders are placed.[facility]03-10-2025 History of Present illness Narrative* Renetta [...] when orders are placed. [facility] NoteHNO ID: [id number] Author: SONAM CERON MD Service: Hospital Medicine Author Type: Physician Type: Progress Notes Filed: 02/04/2025 13:30 Note Text: Documentation Query Please clarify the relationship, if any, between sepsis and nephrostomy tubes: Sepsis due to nephrostomy tubes This document will become part of the patient's medical record.[facility]03-03-2025 NoteHNO ID: [id number] Author: SONAM CERON MD Service: Hospital Medicine Author Type: Physician Type: Progress Notes Filed: 02/04/2025 15:47 Note Text: Documentation Query Please clarify status of UTI ( urinary tract infection): UTI ( urinary tract infection) Ruled In This document will become part of the patient's medical record.[facility]03-03-2025 NoteHNO ID: [id number] Author: CASSI JOHNSON RN Service: Care Management Author Type: Registered Nurse Type: Care Mgt Progress Note Filed: 01/19/2025 13:33 Note Text: CARE MANAGEMENT DISCHARGE NOTE SERVICE DATE: January 19, 2025 SERVICE TIME: 1:25 PM Admission Date: 01/12/2025 LOS: 6 days Discharge Arrangement Discharge Arrangement: Home with Relative Services Arranged Medical Services: Other: See Comment (OP Infusion for dressing changes) Provider Name: Gerardo García Caregiver Assessment Caregiver is ready, willing and able to meet the patient's needs as recommended by the inter-professional team: Yes Name of Caregiver: daughters and sister to assist with IV abt therapy Transportation Arrangements Transportation Arrangements: Car Destination: pts home Handoff Communication: Handoff to: Primary Care Physician Primary Care Physician Name/Phone: Gerardo García [phone] Additional Information: Pt to discharge home with her two daughters and her sister's support. Jose Armando from [facility] provided a bedside teach on IV therapy to the pt, her daughter, and her sister. IV abt to be delivered to the pt's home tonight. Stop date of the IV abt is 01/24/25. Pt to come to [facility] OP Infusion on Tuesday 01/23 and 01/26 at 1500. On 01/23 the pt will have the midline dressing changed and on 01/26 the midline will be pulled. Pt coordinated these appts with [facility]fusion. Pt and family had preferred that the pt go to [facility]fusion however they would not accept the pt for wound dressing only as it is not a billable service. Family to provide transport home. Case closed. Discharge Information Row Name ED to Hosp-Admission (Current) from 01/12/2025 in MR 5M PEDS/ADULT Medical Follow-Up Appointment Specialty Outpatient Infusion Provider Name [facility] Address [address], [place] [address] [facility] Appointment Date 01/23/25 Appointment Time 3:00 pm Additional Instructions enter through the surgery center on Home Infusion Pharmacy Agency [facility] Phone/ Start of Care 01/19/25 SIGNATURE: Cassi Johnson RN PATIENT NAME: Todd Delong DATE: January 19, 2025 TIME: 1:25 PM[facility] NoteHNO ID: [id number] Author: LOUIE DELATORRE APRN.CNP Service: Hospital Medicine Author Type: Nurse Practitioner Type: Progress Notes Filed: 01/19/2025 08:03 Note Text: DEPARTMENT OF HOSPITAL MEDICINE PROGRESS NOTE SERVICE DATE: 01/18/2025 SERVICE TIME: 1237PM Hospital Medicine/Primary Attending: Sonam Ceron MD PRIMARY CARE PHYSICIAN: Gerardo García MD Readmission: Highest Readmission Risk Score: 30 Subjective Ms. Delong is a vinay 74 year old female patient with a history of asthma,hypertension, hypothyroidism, ovarian and cervical cancer status post radiation, Stage III CKD, and chronic hydroureter status post bilateral nephrostomy tube placement with recent exchange on January 12, 2025 who was admitted on January 13, 2025 for bacteremia,most likely from a urinary tract source. INTERVAL HPI: No acute overnight events. This morning, the patient was seen at bedside. Patient verbalizes no complaints at this time. She continues to await home health and/or outpatient infusion center arrangements for outpatient IV antibiotic administration. There are no reports of abdominal pain, nausea, vomiting, fevers, or chills. Stools are soft without any evidence of melena or hematochezia. Nephrostomy tubes intact with clear and adequate urine output. All laboratory studies have been reviewed All questions and concerns have been addressed and answered to the best of my ability. Vital signs stable, she is afebrile Current Facility-Administered Medications Medication Dose Route Frequency NaCl 0.9% iv flush bag 20 mL INTRAVENOUS PRN heparin 5,000 Units injection 5,000 Units SUBCUTANEOUS q 8 H aluminum-magnesium hydroxide-simethicone 200-200-20 mg/5 mL 30 mL 30 mL ORAL DAILY PRN ondansetron 4 mg tab(s) (ZOFRAN) 4 mg ORAL q 6 H PRN Or ondansetron (PF) 4 mg injection (ZOFRAN) 4 mg INTRAVENOUS q 6 H PRN acetaminophen 650 mg tab(s) (TYLENOL) 650 mg ORAL q 6 H PRN morphine 2 mg injection 2 mg INTRAVENOUS q 4 H PRN amLODIPine 2.5 mg tab(s) (NORVASC) 2.5 mg ORAL DAILY potassium chloride ER 20 mEq tab(s) (KLOR-CON) 20 mEq ORAL DAILY pantoprazole DR 40 mg tab(s) (PROTONIX) 40 mg ORAL DAILY (6 AM) levothyroxine 25 mcg tab(s) (SYNTHROID) 25 mcg ORAL DAILY (6 AM) cefepime 1 g in D5W 100 mL Vial-Bag (MAXIPIME) 1 g INTRAVENOUS q 12 H albuterol HFA 90 mcg/actuation 2 Puff (PROVENTIL HFA, VENTOLIN HFA) 2 Puff INHALATION q 4 H PRN Objective PHYSICAL EXAM: BP 130/69 Pulse 85 Temp (Src) 98.2 (Oral) Resp 16 Ht 5' 7 (1.70m) Wt 194 lb 0.1 oz (88.0kg) SpO2 91% BMI 30.38 kg/(m2). O2 Therapy: Room Air Physical Exam Performed Physical Exam Vitals and nursing note reviewed. Constitutional: General: She is not in acute distress. Appearance: She is not ill-appearing, toxic-appearing or diaphoretic. HENT: Head: Normocephalic and atraumatic. Cardiovascular: Rate and Rhythm: Regular rhythm. Pulmonary: Effort: No respiratory distress. Breath sounds: No stridor. No wheezing, rhonchi or rales. Chest: Chest wall: No tenderness. Abdominal: General: There is no distension. Palpations: Abdomen is soft. Tenderness: There is no abdominal tenderness. There is no guarding or rebound. Genitourinary: Comments: Bilateral percutaneous nephrostomy tubes draining yellow urine with no signs of hematuria noted. No bilateral CVA tenderness noted on palpation Musculoskeletal: Right lower leg: No edema. Left lower leg: No edema. Skin: General: Skin is warm and dry. Coloration: Skin is not jaundiced. Neurological: Mental Status: She is alert and oriented to person, place, and time. Lines, Drains, and Airways Line Duration Peripheral 01/16/25 1526 [facility] Midline Right Arm #3 Burkinan 1 day Drain Duration Surgically Inserted Drain 01/12/25 1200 Nephrostomy Left Lower Back 6 days Surgically Inserted Drain 01/12/25 1200 Nephrostomy Right Lower Back 6 days Reviewed lines and needs to be continued: REASONS: Intravenous antibiotics DATA: Diagnostic tests reviewed for today's visit: Most recent labs Most recent imaging CBC: Coags: BMP: Recent Labs 01/18/25 0637 NA 140 K 3.8 CHLOR 107 CO2 27 BUN 22 CREAT 1.59* GLUC 89 CMP: Recent Labs 01/18/25 0637 NA 140 K 3.8 CHLOR 107 CO2 27 BUN 22 CREAT 1.59* GLUC 89 CA 8.9 MG 1.9 ANION 6 MG/PHOS: Recent Labs 01/18/25 0637 MG 1.9 P 3.9 CBC, Coags, BMP, Mg, Phos Recent Labs 01/18/25 0637 01/17/25 0719 01/16/25 0530 WBC -- -- 8.19 HB -- -- 12.2 HCT -- -- 37.2 PLT -- -- 279 NA 140 139 140 K 3.8 4.0 4.0 CHLOR 107 107 109* CO2 27 24 24 BUN 22 20 25 CREAT 1.59* 1.64* 1.88* GLUC 89 91 90 CA 8.9 9.5 8.7 MG 1.9 1.9 1.9 P 3.9 4.0 -- Cultures: blood cultures growing gram-negative rods from 1 set and gram-positive cocci in clusters from the other set. BC ID has identified Enterobacterales (no further identification on B (more content not included)...[facility] 01-17-2025 NoteHNO ID: [id number] Author: LOUIE DELATORRE APRN.CAROLYNE Service: Hospital Medicine Author Type: Nurse Practitioner Type: Progress Notes Filed: 01/18/2025 03:57 Note Text: DEPARTMENT OF HOSPITAL MEDICINE PROGRESS NOTE SERVICE DATE: 01/17/2025 SERVICE TIME: 1126AM Hospital Medicine/Primary Attending: Sonam Ceron MD PRIMARY CARE PHYSICIAN: Gerardo García MD Readmission: Highest Readmission Risk Score: 30 Subjective Ms. Delong is a vinay 74 year old female patient with a history of asthma,hypertension, hypothyroidism, ovarian and cervical cancer status post radiation, Stage III CKD, and chronic hydroureter status post bilateral nephrostomy tube placement with recent exchange on January 12, 2025 who was admitted on January 13, 2025 for bacteremia,most likely from a urinary tract source. INTERVAL HPI: No overnight events were reported. Patient sitting up in bed chatting with a female farmer and grazier, appearing in no acute distress. Patient voices no complaints at this time. Yesterday, she underwent the placement of 3 [place] single lumen midline to the right upper extremity. Per case management, [facility] is able to provide the IV antibiotic; however case management is having difficulty finding a home health agency in her area. Case management did note, [facility] is able to do a bedside teaching with patient and patient's daughter; unfortunately, this can not be performed until Sunday. Plan of care of be explained to patient, who verbalizes understanding. All laboratory studies have been reviewed All questions and concerns have been addressed and answered to the best of my ability. Vital signs stable, she is afebrile Current Facility-Administered Medications Medication Dose Route Frequency NaCl 0.9% iv flush bag 20 mL INTRAVENOUS PRN heparin 5,000 Units injection 5,000 Units SUBCUTANEOUS q 8 H aluminum-magnesium hydroxide-simethicone 200-200-20 mg/5 mL 30 mL 30 mL ORAL DAILY PRN ondansetron 4 mg tab(s) (ZOFRAN) 4 mg ORAL q 6 H PRN Or ondansetron (PF) 4 mg injection (ZOFRAN) 4 mg INTRAVENOUS q 6 H PRN acetaminophen 650 mg tab(s) (TYLENOL) 650 mg ORAL q 6 H PRN morphine 2 mg injection 2 mg INTRAVENOUS q 4 H PRN amLODIPine 2.5 mg tab(s) (NORVASC) 2.5 mg ORAL DAILY potassium chloride ER 20 mEq tab(s) (KLOR-CON) 20 mEq ORAL DAILY pantoprazole DR 40 mg tab(s) (PROTONIX) 40 mg ORAL DAILY (6 AM) levothyroxine 25 mcg tab(s) (SYNTHROID) 25 mcg ORAL DAILY (6 AM) cefepime 1 g in D5W 100 mL Vial-Bag (MAXIPIME) 1 g INTRAVENOUS q 12 H albuterol HFA 90 mcg/actuation 2 Puff (PROVENTIL HFA, VENTOLIN HFA) 2 Puff INHALATION q 4 H PRN Objective PHYSICAL EXAM: BP 139/66 Pulse 90 Temp (Src) 98 (Oral) Resp 16 Ht 5' 7 (1.70m) Wt 196 lb 6.9 oz (89.1kg) SpO2 94% BMI 30.76 kg/(m2). O2 Therapy: Room Air Physical Exam Performed Physical Exam Vitals and nursing note reviewed. Constitutional: General: She is not in acute distress. Appearance: She is not ill-appearing, toxic-appearing or diaphoretic. HENT: Head: Normocephalic and atraumatic. Cardiovascular: Rate and Rhythm: Regular rhythm. Pulmonary: Effort: No respiratory distress. Breath sounds: No stridor. No wheezing, rhonchi or rales. Chest: Chest wall: No tenderness. Abdominal: General: There is no distension. Palpations: Abdomen is soft. Tenderness: There is no abdominal tenderness. There is no guarding or rebound. Genitourinary: Comments: Bilateral percutaneous nephrostomy tubes draining yellow urine with no signs of hematuria noted. No bilateral CVA tenderness noted on palpation Musculoskeletal: Right lower leg: No edema. Left lower leg: No edema. Comments: Midline with dry and intact dressing to the RUE Skin: General: Skin is warm and dry. Coloration: Skin is not jaundiced. Neurological: Mental Status: She is alert and oriented to person, place, and time. Lines, Drains, and Airways Line Duration Peripheral 01/12/25 2153 [facility] Right Antecubital 20 Gauge 4 days Peripheral 01/16/25 1526 [facility] Midline Right Arm #3 Burkinan <1 day Drain Duration Surgically Inserted Drain 01/12/25 1200 Nephrostomy Left Lower Back 4 days Surgically Inserted Drain 01/12/25 1200 Nephrostomy Right Lower Back 4 days Reviewed lines and needs to be continued: REASONS: Intravenous antibiotics DATA: Diagnostic tests reviewed for today's visit: Most recent labs Most recent imaging CBC: Coags: BMP: Recent Labs 01/17/25 0719 NA 139 K 4.0 CHLOR 107 CO2 24 BUN 20 CREAT 1.64* GLUC 91 CMP: Recent Labs 01/17/25 0719 NA 139 K 4.0 CHLOR 107 CO2 24 BUN 20 CREAT 1.64* GLUC 91 CA 9.5 MG 1.9 ANION 8 MG/PHOS: Recent Labs 01/17/25 0719 MG 1.9 P 4.0 CBC, Coags, BMP, Mg, Phos Recent Labs 01/17/25 0719 01/16/25 0530 01/15/25 0703 WBC -- 8.19 8.40 HB -- 12.2 11.8 HCT -- 37.2 36.7 PLT -- 279 259 NA (more content not included)...[facility]02-28-2025 NoteHNO ID: [id number] Author: MADDIE ARMSTRONG RN Service: PICC Team Author Type: Registered Nurse Type: Procedures Filed: 01/16/2025 15:34 Note Text: MIDLINE INSERTION PROCEDURE NOTE - PICC TEAM NURSES DATE OF PROCEDURE: 01/16/2025 TIME OF PROCEDURE: 1415 ORDERING PHYSICIAN: Dr. Marcelo Mcmillan Indications for line placement: COPAT Condition of line placement: Sterile Primary Proceduralist: Tano Cannon RN Application Support: Maddie Armstrong RN Pre-procedure Review: ALLERGIES Allergen Reactions Methylprednisolone Other: See Comments Bactrim [Sulfametho* Shortness of Breath Pravastatin Anaphylaxis Prednisone Unknown Only allergic to Methylprednisone Gthyfce-Cne-Tcs Red* Anaphylaxis Known history of Upper Venous Thrombosis: No Known history of Permanent Pacemaker or Automated Implanted Cardiac Device: No Previous breast surgery of lymph node dissection: No Estimated Glomerular Filtration Rate Date Value Ref Range Status 01/16/2025 28 (L) >=60 mL/min/1.73m? Final Comment: Estimated Glomerular Filtration Rate (eGFR) is calculated using the 2020 CKD-EPI creatinine equation. This equation utilizes serum creatinine, sex, and age as parameters. The creatinine assay has traceable calibration to isotope dilution-mass spectrometry. Refer to KDIGO guidelines for clinical interpretation. In patients with unstable renal function, e.g. those with acute kidney injury, the eGFR may not accurately reflect actual GFR. eGFR Date Value Ref Range Status 06/11/2018 >60 >60mL/min/1.73m2 Final Comment: If the patient is , multiply the result by 1.210. History of Renal Disease: Yes - Chronic Kidney Disease / Transplant - Clearance provided by Talat Delatorre CNP Arterio-Venous Fistula in Place or Planned: Yes, Left Ultrasound assessment complete: Yes Procedure Narrative Safe Practice: Hand hygiene per hospital policy: Yes Skin preparation used: Chloraprep (CHG + alcohol), allowed to dry Barriers used by Proceduralist and all assisting personnel: Yes UNIVERSAL PROTOCOL / SAFETY CHECKLIST Procedure to be Performed: Midline insertion Sign In: A Moment of CARE was completed. Appropriate PPE (Personal Protective Equipment) worn by all providers involved with the procedure. Special equipment not required. Patient/Surrogate Stated/Verified: Patient name, Date of , Relevant allergies, and The intended procedure Time Out: Relevant labs, photos, and/or imaging studies have been reviewed. Intended patient and procedure match the source document(s) (e.g. consent, HANDP, associated studies [imaging, pathology]) match the intended patient and procedure. Consent obtained and matches the intended procedure. Correct side/site is not applicable. Medications required for this procedure are verified. Fire risk assessed and is not applicable. Implants: are not applicable. Sign Out: Specimens not collected. All instruments, equipment, possible retained foreign bodies are accounted for. Yes. The post-procedure plan of care has been communicated to patient's multidisciplinary team (including bedside nurse for hospitalized patients). Midline Catheter Placement: Brand: Bard Lot: [id number] Number of lumens: 1 Type of Midline: Power Injectable Midline Lumen size: 3 Burkinan Placement Technique: Lidocaine: Yes, Lidocaine 1% Volume 2 mL Subcutaneous Modified Seldinger Technique use to place line via the: Right Cephalic Ultrasound Guidance: Yes Number of attempts at insertion: 4 Ensured control of guidewire during all aspects of the procedure: Yes Accounted for entire guidewire upon removal: Yes Internal length: 10 cm External length: 0 cm Trim length:10 cm Mid-Arm circumference: 26.5 centimeters Post insertion pain level related to procedure: 0 Action taken to address pain: None needed Verified placement: Positive blood return Line was flushed with 10 mL normal saline Line secured with: Securement device Sterile dressing applied and dated: Yes Sterile caps on all ports prior to leaving procedure area: Yes, Disinfection caps applied Specimens: None Complications: None Patient education materials: Placed in chart Questions or problems: Call Vocera-Vascular Access Nurse SIGNATURE: Maddie Armstrong RN PATIENT NAME: Todd Delong DATE: January 16, 2025 TIME: 3:27 PM [facility] NoteHNO ID: [id number] Author: CASSI JOHNSON RN Service: Care Management Author Type: Registered Nurse Type: Care Mgt Progress Note Filed: 01/16/2025 17:08 Note Text: CARE MANAGEMENT PROGRESS NOTE SERVICE DATE: 01/16/2025 SERVICE TIME: 1:57 PM LOS: 3 days [place] of Choice Given: Yes Level of Care Discussed: Home Care, Other: See Comment Financial Disclosure Provided: Yes Provider List: Home Care, Home Care Pharmacy Provider list within the patient's requested geographic area shared with the patient/family: Yes within: 20 miles of zip code: [address] Quality and resource use metrics shared with the patient that are relevant to the patient's goals of care and treatment preferences:: Yes Metrics: Resource Use, Discharge to Community, Potentially Preventable 30-day Post Discharge Readmission Rates Chart reviewed. Met with the pt at bedside. Discussed discharge plan. CM was informed by Dr. Mcmillan that the pt will require intermediate IV abt. Pt admitted for bacteremia, sepsis. ID following. Receiving IV abt. Pt has bilat nephro tubes that were placed approximately a year ago. She reports the tubes are replaced every 6 weeks at the urologist's office. Pt reports she is able to empty the bags herself and her daughters change the dressing. Discharge plan: will require IV abt through 01/24. Waiting on PICC line to be placed. [facility] is able to provide the IV abt however having difficulty finding a home health agency in her area to provide teaching and dressing change/labwork. If unable to go this route, [facility] is able to do a bedside teach here at the hospital however the pts daughter needs to be here during the bedside teach. The daughters are not available today for teaching. Will need an OP infusion facility to do labwork and dressing changes[facility] during the weekend. It would have to be on Sunday. To return home once IV abt and home health/OP Infusion is set up. Addendum: spoke with Todd via telephone. Conferred with the attending provider and floor RN - provided an update. The pts daughter and sister will come on Sunday morning at 0900 for a bedside teach on IV administration. CM notified [facility] [facility] of available time via [employer]. Awaiting response from [employer]. SIGNATURE: Cassi Johnson RN PATIENT NAME: Todd Delong DATE: January 16, 2025 TIME: 1:57 PM[facility] NoteHNO ID: [id number] Author: LOUIE DELATORRE APRN.CNP Service: Hospital Medicine Author Type: Nurse Practitioner Type: Progress Notes Filed: 01/17/2025 08:22 Note Text: DEPARTMENT OF HOSPITAL MEDICINE PROGRESS NOTE SERVICE DATE: 01/16/2025 SERVICE TIME: 1328 PM Hospital Medicine/Primary Attending: Sonam Ceron MD PRIMARY CARE PHYSICIAN: Gerardo García MD Readmission: Highest Readmission Risk Score: 30 Subjective Ms. Delong is a vinay 74 year old female patient with a history of asthma,hypertension, hypothyroidism, ovarian and cervical cancer status post radiation, Stage III CKD, and chronic hydroureter status post bilateral nephrostomy tube placement with recent exchange on January 12, 2025 who was admitted on January 13, 2025 for bacteremia,most likely from a urinary tract source. INTERVAL HPI: No overnight events were reported Patient found sitting up in bed, appearing in no acute distress. She denies chest pain, shortness of breath, nausea,and/or vomiting. Bilateral nephrostomy tubes are functioning with yellow urine noted in both. No hematuria noted. She admits to several loose stools today without any hematochezia or melena. Expanded stool panel was found to be negative. In the setting of Morganella bacteremia and PsA, the patient will warrant outpatient IV antibiotic therapy which will be arranged by ID Case management aware Midline has been ordered. Currently, she is hemodynamically stable She remains afebrile All questions and concerns have been addressed and answered to the best of my ability. Current Facility-Administered Medications Medication Dose Route Frequency NaCl 0.9% iv flush bag 20 mL INTRAVENOUS PRN heparin 5,000 Units injection 5,000 Units SUBCUTANEOUS q 8 H aluminum-magnesium hydroxide-simethicone 200-200-20 mg/5 mL 30 mL 30 mL ORAL DAILY PRN ondansetron 4 mg tab(s) (ZOFRAN) 4 mg ORAL q 6 H PRN Or ondansetron (PF) 4 mg injection (ZOFRAN) 4 mg INTRAVENOUS q 6 H PRN acetaminophen 650 mg tab(s) (TYLENOL) 650 mg ORAL q 6 H PRN morphine 2 mg injection 2 mg INTRAVENOUS q 4 H PRN amLODIPine 2.5 mg tab(s) (NORVASC) 2.5 mg ORAL DAILY potassium chloride ER 20 mEq tab(s) (KLOR-CON) 20 mEq ORAL DAILY pantoprazole DR 40 mg tab(s) (PROTONIX) 40 mg ORAL DAILY (6 AM) levothyroxine 25 mcg tab(s) (SYNTHROID) 25 mcg ORAL DAILY (6 AM) cefepime 1 g in D5W 100 mL Vial-Bag (MAXIPIME) 1 g INTRAVENOUS q 12 H albuterol HFA 90 mcg/actuation 2 Puff (PROVENTIL HFA, VENTOLIN HFA) 2 Puff INHALATION q 4 H PRN Objective PHYSICAL EXAM: BP 131/73 Pulse 107 Temp (Src) 98.7 (Oral) Resp 17 Ht 5' 7 (1.70m) Wt 196 lb 6.9 oz (89.1kg) SpO2 94% BMI 30.76 kg/(m2). O2 Therapy: Room Air Physical Exam Performed Physical Exam Vitals and nursing note reviewed. Constitutional: General: She is not in acute distress. Appearance: She is not ill-appearing, toxic-appearing or diaphoretic. HENT: Head: Normocephalic and atraumatic. Cardiovascular: Rate and Rhythm: Tachycardia present. Pulmonary: Effort: No respiratory distress. Breath sounds: No stridor. No wheezing, rhonchi or rales. Chest: Chest wall: No tenderness. Abdominal: General: There is no distension. Palpations: Abdomen is soft. Tenderness: There is no abdominal tenderness. There is no guarding or rebound. Genitourinary: Comments: Bilateral percutaneous nephrostomy tubes draining yellow urine with no signs of hematuria noted. No bilateral CVA tenderness noted on palpation Musculoskeletal: Right lower leg: No edema. Left lower leg: No edema. Skin: General: Skin is warm and dry. Coloration: Skin is not jaundiced. Neurological: Mental Status: She is alert and oriented to person, place, and time. Lines, Drains, and Airways Line Duration Peripheral 01/12/25 2153 [facility] Right Antecubital 20 Gauge 3 days Peripheral 01/16/25 1526 [facility] Midline Right Arm #3 [place] <1 day Drain Duration Surgically Inserted Drain 01/12/25 1200 Nephrostomy Left Lower Back 4 days Surgically Inserted Drain 01/12/25 1200 Nephrostomy Right Lower Back 4 days Reviewed lines and needs to be continued: REASONS: Intravenous antibiotics DATA: Diagnostic tests reviewed for today's visit: Most recent labs Most recent imaging CBC: Recent Labs 01/16/25 0530 WBC 8.19 RBC 4.17 HB 12.2 HCT 37.2 PLT 279 MCV 89.2 MCH 29.3 MPV 9.6 Coags: BMP: Recent Labs 01/16/25 0530 NA 140 K 4.0 CHLOR 109* CO2 24 BUN 25 CREAT 1.88* GLUC 90 CMP: Recent Labs 01/16/25 0530 NA 140 K 4.0 CHLOR 109* CO2 24 BUN 25 CREAT 1.88* GLUC 90 TPROT 6.7 CA 8.7 MG 1.9 TBILI 0.4 ALKPHOS 117 ALT 17 AST 36* ANION 7 MG/PHOS: Recent Labs 01/16/25 0530 MG 1.9 CBC, Coags, BMP, Mg, Phos Recent Labs 01/16/25 0530 01/15/25 0703 01/14/25 1114 WBC 8.19 8.40 9.43 HB 12.2 11.8 12.4 HCT 37.2 36.7 37 (more content not included)...[facility]02-27-2025 NoteHNO ID: [id number] Author: LOUIE DELATORRE APRN.CNP Service: Hospital Medicine Author Type: Nurse Practitioner Type: Progress Notes Filed: 01/16/2025 04:31 Note Text: DEPARTMENT OF HOSPITAL MEDICINE PROGRESS NOTE SERVICE DATE: 01/15/2025 SERVICE TIME: 1257 PM Hospital Medicine/Primary Attending: Sonam Ceron MD PRIMARY CARE PHYSICIAN: Gerardo García MD Readmission: Highest Readmission Risk Score: 30 Subjective Ms. Delong is a vinay 74 year old female patient with a history of asthma,hypertension, hypothyroidism, ovarian and cervical cancer status post radiation, Stage III CKD, and chronic hydroureter status post bilateral nephrostomy tube placement with recent exchange on January 12, 2025 who was admitted on January 13, 2025 for bacteremia,most likely from a urinary tract source. INTERVAL HPI: No acute overnight events were noted. Reports several loose bowel movements yesterday, none thus far today. Denies any chest pain, nausea, vomiting, chills, or hematuria. Oral temperature noted at 99.0.Mildly tachycardic on examination. Good urine output from bilateral nephrostomy tubes. No abdominal or CVA pain/discomfort noted. She remains on IV cefepime. Currently, she is hemodynamically stable. Current Facility-Administered Medications Medication Dose Route Frequency NaCl 0.9% iv flush bag 20 mL INTRAVENOUS PRN heparin 5,000 Units injection 5,000 Units SUBCUTANEOUS q 8 H aluminum-magnesium hydroxide-simethicone 200-200-20 mg/5 mL 30 mL 30 mL ORAL DAILY PRN ondansetron 4 mg tab(s) (ZOFRAN) 4 mg ORAL q 6 H PRN Or ondansetron (PF) 4 mg injection (ZOFRAN) 4 mg INTRAVENOUS q 6 H PRN acetaminophen 650 mg tab(s) (TYLENOL) 650 mg ORAL q 6 H PRN morphine 2 mg injection 2 mg INTRAVENOUS q 4 H PRN amLODIPine 2.5 mg tab(s) (NORVASC) 2.5 mg ORAL DAILY potassium chloride ER 20 mEq tab(s) (KLOR-CON) 20 mEq ORAL DAILY pantoprazole DR 40 mg tab(s) (PROTONIX) 40 mg ORAL DAILY (6 AM) levothyroxine 25 mcg tab(s) (SYNTHROID) 25 mcg ORAL DAILY (6 AM) cefepime 1 g in D5W 100 mL Vial-Bag (MAXIPIME) 1 g INTRAVENOUS q 12 H Objective PHYSICAL EXAM: BP 132/67 Pulse 106 Temp (Src) 99 (Oral) Resp 20 Ht 5' 7 (1.70m) Wt 198 lb 13.7 oz (90.2kg) SpO2 96% BMI 31.14 kg/(m2). O2 Therapy: Room Air Physical Exam Performed Physical Exam Vitals and nursing note reviewed. Constitutional: General: She is not in acute distress. Appearance: She is not ill-appearing, toxic-appearing or diaphoretic. HENT: Head: Normocephalic and atraumatic. Cardiovascular: Rate and Rhythm: Tachycardia present. Pulmonary: Effort: No respiratory distress. Breath sounds: No stridor. No wheezing, rhonchi or rales. Chest: Chest wall: No tenderness. Abdominal: General: There is no distension. Palpations: Abdomen is soft. Tenderness: There is no abdominal tenderness. There is no guarding or rebound. Genitourinary: Comments: Bilateral percutaneous nephrostomy tubes draining yellow urine with no signs of hematuria noted. No bilateral CVA tenderness noted on palpation Musculoskeletal: Right lower leg: No edema. Left lower leg: No edema. Skin: General: Skin is warm and dry. Coloration: Skin is not jaundiced. Neurological: Mental Status: She is alert and oriented to person, place, and time. Lines, Drains, and Airways Line Duration Peripheral 01/12/25 4933 [facility] Right Antecubital 20 Gauge 2 days Drain Duration Surgically Inserted Drain 01/12/25 1200 Nephrostomy Left Lower Back 3 days Surgically Inserted Drain 01/12/25 1200 Nephrostomy Right Lower Back 3 days Reviewed lines and needs to be continued: REASONS: Intravenous antibiotics DATA: Diagnostic tests reviewed for today's visit: Most recent labs Most recent imaging CBC: Recent Labs 01/15/25 0703 WBC 8.40 RBC 4.08 HB 11.8 HCT 36.7 PLT 259 MCV 90.0 MCH 28.9 MPV 9.9 Coags: BMP: Recent Labs 01/15/25 0703 NA 139 K 4.0 CHLOR 107 CO2 22 BUN 25 CREAT 1.93* GLUC 73 CMP: Recent Labs 01/15/25 0703 NA 139 K 4.0 CHLOR 107 CO2 22 BUN 25 CREAT 1.93* GLUC 73 TPROT 6.5 CA 9.0 MG 1.9 TBILI 0.4 ALKPHOS 120* ALT 18 AST 39* ANION 10 MG/PHOS: Recent Labs 01/15/25 0703 MG 1.9 CBC, Coags, BMP, Mg, Phos Recent Labs 01/15/25 0703 01/14/25 1114 01/13/25 1934 WBC 8.40 9.43 11.84* HB 11.8 12.4 12.9 HCT 36.7 37.5 39.1 PLT 259 263 318 NA 139 135* 133* K 4.0 4.1 4.3 CHLOR 107 104 100 CO2 22 22 23 BUN 25 29* 31* CREAT 1.93* 2.15* 2.42* GLUC 73 83 98 CA 9.0 8.6 9.3 MG 1.9 -- -- Cultures: blood cultures growing gram-negative rods from 1 set and gram-positive cocci in clusters from the other set. BC ID has identified Enterobacterales (no further identification on BC ID) and methicillin resistant Staph epidermidis. HOSPITAL COURSE: Ms. Delong is a vinay 74 year old female patient with a history of asthma,h (more content not included)...[facility]02-27-2025 NoteHNO ID: [id number] Author: CASSI JOHNSON RN Service: Care Management Author Type: Registered Nurse Type: Care Mgt Initial Assessment Filed: 01/15/2025 09:28 Note Text: CARE MANAGEMENT: ASSESSMENT AND DISCHARGE PLAN SERVICE DATE: January 15, 2025 SERVICE TIME: 9:21 AM PCP: Gerardo García MD Primary Contact: Extended Emergency Contact Information Primary Emergency Contact: Maxine Garcia Mobile Relation: Daughter Secondary Emergency Contact: RAZIA BORRERO Mobile Relation: Sister Admission Status: Inpatient Insurance Provider: [employer] Discharge Planning requested by: Per Department Practice Potential Transition Plans Home Advance Directives Current Advance Directive: None Transmission Worker Attempted to Assist with AD Completion: Yes Action: Education Provided Current Living Arrangements and Support Lives with: Family members, Children Type of Residence: Private Residence (House) Does the patient have to climb stairs at home?: Yes, stairs outside the home, stairs within the home Support: Children, Family members How do you manage to accomplish the following: Independent: Ambulation, Bathe/Shower, Dress, Meals/Meal Prep, Going to the bathroom, Medication Management, Transportation to appointments/community Current Services/Equipment Current Post-Acute Service(s): DME Current DME Type: Cane Discharge Planning Patient Goal(s): General wellness, Be able to go home [place] Explained: Are you interested in bedside delivery of your medications? No Discharge Planning Participant(s): Patient Patient/Family Comments: Caregiver Assessment: Caregiver is ready, willing and able to meet the patient's needs as recommended by the inter-professional team: No Caregiver needed Intimate Partner Violence We have begun to talk to patients about safe and healthy relationships because it can have a large impact on your health. Do you feel safe around your partner or ex-partner?: Yes Food Insecurity Within the past 12 months, you worried that your food would run out before you got the money to buy more.: Never true Within the past 12 months, the food you bought just didn't last and you didn't have money to get more.: Never true Transportation Needs In the past 12 months, has lack of transportation kept you from medical appointments or from getting medications?: No In the past 12 months, has lack of transportation kept you from meetings, work, or from getting things needed for daily living?: No Housing Stability In the last 12 months, was there a time when you were not able to pay the mortgage or rent on time?: No In the past 12 months, how many times have you moved where you were living?: 1 At any time in the past 12 months, were you homeless or living in a longterm (including now)?: No Utilities In the past 12 months has the [place], gas, oil, or water [employer] threatened to shut off services in your home?: No Social Information Financial Resources: Retired Transport at Discharge: Transportation Arrangements: Car Destination: pts home Needs Prior to Discharge: Needs Prior to Discharge: To Be Determined, Discharge Prescriptions Post-Acute Discharge Plan: Chart reviewed. Met with the pt at bedside. Pt admitted for bacteremia, sepsis. ID following. Receiving IV abt. Pt has bilat nephro tubes that were placed approximately a year ago. She reports the tubes are replaced every 6 weeks at the urologist's office. Pt reports she is able to empty the bags herself and her daughters change the dressing. Pt lives at home in a 2-story house. Her daughter and two granddaughters live with her. Pt reports she is independent with all ADLs/IADLs and drives at baseline. Uses a cane for mobility due to right knee pain. Denies any recent falls. Pt states she recently saw her PCP Dr. García and has prescription/insurance coverage. Pt denies any difficulty affording her medications. Discharge plan: return home. Denies any home going needs. Reports she has transportation home. CM to follow. SIGNATURE: Cassi Johnson RN PATIENT NAME: Todd Delong DATE: January 15, 2025 TIME: 9:21 [facility]02-26-2025 NoteHNO ID: [id number] Author: LOUIE DELATORRE APRN.CNP Service: Hospital Medicine Author Type: Nurse Practitioner Type: Progress Notes Filed: 01/14/2025 13:00 Note Text: .[facility]02-26-2025 NoteHNO ID: [id number] Author: LOUIE DELATORRE APRN.CNP Service: Hospital Medicine Author Type: Nurse Practitioner Type: Progress Notes Filed: 01/15/2025 04:34 Note Text: DEPARTMENT OF HOSPITAL MEDICINE PROGRESS NOTE SERVICE DATE: 01/14/2025 SERVICE TIME: 1245PM Hospital Medicine/Primary Attending: Sonam Ceron MD PRIMARY CARE PHYSICIAN: Gerardo García MD Readmission: Highest Readmission Risk Score: 30 Subjective Ms. Delong is a vinay 74 year old female patient with a history of asthma,hypertension, hypothyroidism, ovarian and cervical cancer status post radiation, Stage III CKD, and chronic hydroureter status post bilateral nephrostomy tube placement with recent exchange on January 12, 2025 who was admitted on January 13, 2025 for bacteremia,most likely from a urinary tract source. INTERVAL HPI: No acute overnight events were reported. This afternoon,the patient was found awake and alert, appearing in acute distress. She denies any chest pain, shortness of breath, nausea, and/or vomiting. Since admission, she has experienced several episodes of loose stools with no associated melena or hematochezia. Yesterday, she did not some hematuria following her procedure,none thus far today. Chills have subsided. No significant abdominal pain, cough or congestion have been reported; however, she admits to a clear runny nose. In the setting of gram negative bacteremia most likely from urinary tract source, she was evaluated by Dr. Mcmillan, infectious disease specialist, has been consulted. Currently, she is afebrile and hemodynamically stable. Current Facility-Administered Medications Medication Dose Route Frequency NaCl 0.9% iv flush bag 20 mL INTRAVENOUS PRN heparin 5,000 Units injection 5,000 Units SUBCUTANEOUS q 8 H lactated ringers iv infusion 125 mL/hr INTRAVENOUS CONTINUOUS aluminum-magnesium hydroxide-simethicone 200-200-20 mg/5 mL 30 mL 30 mL ORAL DAILY PRN ondansetron 4 mg tab(s) (ZOFRAN) 4 mg ORAL q 6 H PRN Or ondansetron (PF) 4 mg injection (ZOFRAN) 4 mg INTRAVENOUS q 6 H PRN acetaminophen 650 mg tab(s) (TYLENOL) 650 mg ORAL q 6 H PRN morphine 2 mg injection 2 mg INTRAVENOUS q 4 H PRN amLODIPine 2.5 mg tab(s) (NORVASC) 2.5 mg ORAL DAILY potassium chloride ER 20 mEq tab(s) (KLOR-CON) 20 mEq ORAL DAILY pantoprazole DR 40 mg tab(s) (PROTONIX) 40 mg ORAL DAILY (6 AM) levothyroxine 25 mcg tab(s) (SYNTHROID) 25 mcg ORAL DAILY (6 AM) cefepime 1 g in D5W 100 mL Vial-Bag (MAXIPIME) 1 g INTRAVENOUS q 12 H Objective PHYSICAL EXAM: BP 136/71 Pulse 90 Temp (Src) 98.1 (Oral) Resp 18 Ht 5' 7 (1.70m) Wt 192 lb 10.9 oz (87.4kg) SpO2 93% BMI 30.17 kg/(m2). O2 Therapy: Room Air Physical Exam Performed Physical Exam Vitals and nursing note reviewed. Constitutional: General: She is not in acute distress. Appearance: She is not ill-appearing, toxic-appearing or diaphoretic. HENT: Head: Normocephalic and atraumatic. Cardiovascular: Rate and Rhythm: Regular rhythm. Pulmonary: Effort: No respiratory distress. Breath sounds: No stridor. No wheezing, rhonchi or rales. Chest: Chest wall: No tenderness. Abdominal: General: There is no distension. Palpations: Abdomen is soft. Tenderness: There is no abdominal tenderness. There is no guarding or rebound. Genitourinary: Comments: Bilateral percutaneous nephrostomy tubes draining yellow urine with no signs of hematuria noted. No bilateral CVA tenderness noted on palpation Musculoskeletal: Right lower leg: No edema. Left lower leg: No edema. Skin: General: Skin is warm and dry. Coloration: Skin is not jaundiced. Neurological: Mental Status: She is alert and oriented to person, place, and time. Lines, Drains, and Airways Line Duration Peripheral 01/12/25 2153 [facility] Right Antecubital 20 Gauge 1 day Drain Duration Surgically Inserted Drain 01/12/25 1200 Nephrostomy Left Lower Back 2 days Surgically Inserted Drain 01/12/25 1200 Nephrostomy Right Lower Back 2 days Reviewed lines and needs to be continued: REASONS: Intravenous antibiotics DATA: Diagnostic tests reviewed for today's visit: Most recent labs Most recent imaging CBC: Recent Labs 01/14/25 1114 WBC 9.43 RBC 4.24 HB 12.4 HCT 37.5 PLT 263 MCV 88.4 MCH 29.2 MPV 9.6 Coags: BMP: Recent Labs 01/14/25 1114 NA 135* K 4.1 CHLOR 104 CO2 22 BUN 29* CREAT 2.15* GLUC 83 CMP: Recent Labs 01/14/25 1114 NA 135* K 4.1 CHLOR 104 CO2 22 BUN 29* CREAT 2.15* GLUC 83 CA 8.6 ANION 9 MG/PHOS: No results for input(s): MG, P in the last 24 hours. CBC, Coags, BMP, Mg, Phos Recent Labs 01/14/25 1114 01/13/25 1934 01/12/25 2150 WBC 9.43 11.84* 13.60* HB 12.4 12.9 14.4 HCT 37.5 39.1 44.0 PLT 263 318 348 NA 135* 133* 134* K 4.1 4.3 4.4 CHLOR 104 100 100 CO2 22 23 25 BUN 29* 31* 21 CREAT 2.15* 2.42* 2.02* GLUC 83 98 97 C (more content not included)...[facility]02-25-2025 NoteHNO ID: [id number] Author: ALVAREZ AGUILAR RPh Service: Pharmacy Author Type: Pharmacist Type: Plan of Care Filed: 01/13/2025 19:18 Note Text: PHARMACY MEDICATION REVIEW Patient Name: Todd Delong : 1950 The below information represents the best possible medication history: Yes Medication history completed by: ED Pharmacist Alvarez Aguilar RPh Source of history: Patient: Reliability of source: Appears reliable, clearly identified: Medication name, Medication dose, Medication route, Medication frequency, Timing of last dose, and Indications and Pharmacy records: May Medication nonadherence identified: No barriers noted Preferred outpatient pharmacy: [facility] [address] [place] [id number] [facility] [phone] [id number] Allergies: Methylprednisolone Other: See Comments Bactrim [Sulfametho* Shortness of Breath Pravastatin Anaphylaxis Prednisone Unknown Comment:Only allergic to Methylprednisone Ajgyynt-Otv-Jik Red* Anaphylaxis Prior to Admission Medications Prescriptions Last Dose Informant Patient Reported? Taking? Urinary Bag (BARD URINARY DRAINAGE SYSTEM) misc No No Si Bags as needed. albuterol HFA (VENTOLIN HFA) 90 mcg/actuation inhaler Yes Yes Sig: Inhale 2 Puffs as instructed every 4 hours as needed for wheezing/shortness of breath. amLODIPine (NORVASC) 2.5 mg tablet Yes Yes Sig: Take 2.5 mg by mouth every morning. ipratropium bromide (ATROVENT) 42 mcg (0.06 %) nasal spray Yes Yes Sig: Use 2 Sprays in the nose every morning. levothyroxine (SYNTHROID) 25 mcg tablet Yes Yes Sig: Take 1 tablet by mouth daily before breakfast. pantoprazole DR (PROTONIX) 40 mg tablet Yes Yes Sig: Take 40 mg by mouth every morning. potassium chloride ER (KLOR-CON) 20 mEq tablet Yes Yes Sig: Take 20 mEq by mouth every morning. sodium chloride 0.9 %, flush, (BD POSIFLUSH) syringe No No Si mL once daily. Facility-Administered Medications: None Alvarez Aguilar RPh 01/13/2025[facility]02-25-2025 Telephone encounter Note* Telephone Encounter - Aide Archer - 01/13/2025 3:30 PM EST Unable to hear PT message. Requested they call the office. Aide Archer [facility]02-25-2025 Miscellaneous Notes* Telephone Encounter - Aide Archer - 01/13/2025 3:30 PM EST Unable to hear PT message. Requested they call the office. Aide Archer documented in this encounterKettering [facility]02-24-2025 [id number] (AGENT OF COVID-19) RNA: Not detected INFLUENZA A RNA: Not detected INFLUENZA B RNA: Not detected RESPIRATORY SYNCYTIAL VIRUS (RSV) RNA: Not detectedWillamette Valley Medical CenterComment on above:Performed By: #### [id number] ####[facility] LABORATORYCLIA [id number] [place] [id number] [id number] NoteHNO ID: [id number] Author: JIN ANTONIO MD Service: ? Author Type: Physician Type: Progress Notes Filed: 12/22/2024 09:12 Note Text: ESTABLISHED PATIENT OFFICE VISIT The patient is here for follow-up of bilateral ureteral obstruction. She is tolerating the nephrostomy tubes. Her energy levels continues to slowly improve. Her most recent renal function was December 06. The creatinine was 1.77. LAB RESULTS Creatinine Date Value Ref Range Status 12/06/2024 1.77 (H) 0.51 - 0.95 mg/dL Final Comment: Patients receiving either N-Acetylcysteine (NAC) or Metamizole prior to venipuncture, may have falsely depressed results. No results found for: PSA, PSASC No results found for: UGLUCPOC, UBILIPOC, UKETONPOC, USGPOC, UHBPOC, UPHPOC, UPROPOC, UUROPOC, UNITPOC, UWBCPOC, UCOLPOC, UCLARPOC] ALLERGIES Allergen Reactions Methylprednisolone Other: See Comments Bactrim [Sulfametho* Shortness of Breath Pravastatin Anaphylaxis Prednisone Unknown Only allergic to Methylprednisone Suvmpxm-Tlr-Yxn Red* Anaphylaxis MEDICATIONS: sodium chloride 0.9 %, flush, (BD POSIFLUSH) syringe 10 mL once daily. Urinary Bag (BARD URINARY DRAINAGE SYSTEM) misc 2 Bags as needed. levothyroxine (SYNTHROID) 25 mcg tablet Take 1 tablet by mouth daily before breakfast. IPRATROPIUM BROMIDE NASAL Use 1 [place] in the nose every morning. pantoprazole DR (PROTONIX) 40 mg tablet Take 40 mg by mouth every morning. potassium chloride ER (KLOR-CON) 20 mEq tablet Take 20 mEq by mouth every morning. amLODIPine (NORVASC) 2.5 mg tablet Take 2.5 mg by mouth every morning. 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 FAXED for copy Renal failure [...] Dr. 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, no longer follows with fitter/welder LX REMOVAL RENAL MASS NEPHROSTOMY TUBE [place] 2022 PAST SURGICAL HISTORY OF gallbladder PAST [...] and plugging the nephrostomy tubes to see (more content not included)...[facility]02-03-2025 History of Present illness Narrative* Jin [...] Anaphylaxis Prednisone Unknown Only allergic to Methylprednisone Yjixetn-Vzn-Kom Red* Anaphylaxis MEDICATIONS: sodium chloride 0.9 %, flush, (BD POSIFLUSH) syringe 10 mL once daily. Urinary Bag (BARD URINARY DRAINAGE SYSTEM) misc 2 Bags as needed. levothyroxine (SYNTHROID) 25 mcg tablet Take 1 tablet by mouth daily before breakfast. IPRATROPIUM BROMIDE NASAL Use 1 [place] in the nose every morning. pantoprazole DR (PROTONIX) 40 mg tablet Take 40 mg by mouth every morning. potassium chloride ER (KLOR-CON) 20 mEq tablet Take 20 mEq by mouth every morning. amLODIPine (NORVASC) 2.5 mg tablet Take 2.5 mg by mouth every morning. 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 FAXED for copy Renal failure [...] Dr. 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, no longer follows with fitter/welder LX REMOVAL RENAL MASS NEPHROSTOMY TUBE [place] 2022 PAST SURGICAL HISTORY OF gallbladder PAST [...] CHANGE Jin Antonio MD documented in this encounterKet[facility]01-18-2025 NoteHNO ID: [id number] Author: JOYCE SOLOIRO RN Service: Nursing Author Type: Registered Nurse Type: Nursing Progress Note Filed: 12/06/2024 16:40 Note Text: Pt [facility] to [facility]12-20-2024 Telephone encounter Note* Telephone Encounter - Kiya Johnson OCCA - 11/07/2024 2:07 PM EST I contacted IR and they do not supply replacement nephrostomy bags. I informed pt that she could contact her insurance and ask if they would cover these supplies. Todd asked if she could order nephrostomy supplies on [employer]. While on the phone with the pt, I searched [employer] website and informed her that she could order supplies at that site. ELAINE Vizcarra [facility]12-20-2024 Miscellaneous Notes* Telephone Encounter - Kiya Johnson OCCA - 11/07/2024 2:07 PM EST I contacted IR and they do not supply replacement nephrostomy bags. I informed pt that she could contact her insurance and ask if they would cover these supplies. Todd asked if she could order nephrostomy supplies on [employer]. While on the phone with the pt, I searched [employer] website and informed her that she could [...] get new bags. She has already called [facility] and they do not carry them. ELAINE Vizcarra documented in this encounterKettering Health [facility] Center12-20-2024 Telephone encounter Note * Telephone Encounter - Kiya Johnson OCCA - 11/07/2024 11:47 AM EST Attempted to contact interventional radiology, no answer and was unable to leave a VM. Will try again later. ELAINE Vizcarra [facility]12-20-2024 Telephone encounter Note* Telephone Encounter [...] they do not carry them. ELAINE Vizcarra [facility]11-11-2024 Surgery Surgical operation note* Brief Op Note - Ghulam Rivera DO - 09/29/2024 11:17 AM EST BRIEF OPERATIVE / PROCEDURE NOTE LOG ID: [id number] SURGERY/PROCEDURE DATE: 09/29/2024 INCISION/PROCEDURE START TIME: 11:03 AM INCISION CLOSE/PROCEDURE END TIME: SURGEON(S)/PROCEDURALIST(S) AND MAMMALOGIST(S): Surgeons and Role: * Ghulam Rivera DO [...] DATE: September 29, 2024 TIME: 11:17 AM [facility] Work Phone: 1(164) 770-666711-11-2024 Surgical operation note* Brief Op Note - Ghulam Rivera DO - 09/29/2024 11:17 AM EST BRIEF OPERATIVE / PROCEDURE NOTE LOG ID: [id number] SURGERY/PROCEDURE DATE: 09/29/2024 INCISION/PROCEDURE START TIME: 11:03 AM INCISION CLOSE/PROCEDURE END TIME: SURGEON(S)/PROCEDURALIST(S) AND MAMMALOGIST(S): Surgeons and Role: * Ghulam Rivera DO [...] 2024 TIME: 11:17 AM documented in this encounterK[facility]11-11-[facility]24 Nurse Note* Mayra Ferguson RN - 09/29/2024 11:12 AM EST Procedure complete. Jer nephrostomy tube dressings new, D/I:Stafix dressing applied to both w/tegaderm coverings. Pt placed in a wheelchair and taken to outpt area via RN [facility]11-11-[facility] Nurse Note* Mayra Ferguson RN - 09/29/2024 11:12 AM EST Procedure complete. Jer nephrostomy tube dressings new, D/I:Stafix dressing applied to both w/tegaderm coverings. Pt placed in a wheelchair and taken to outpt area via RN documented in this encounterK[facility]10-14-2024 Telephone encounter Note * Telephone Encounter - Lesly Banuelos RN - 09/01/2024 8:47 AM EDT Yes, on 09/29. Lesly Banuelos RN [facility]10-14-2024 Miscellaneous Notes* Telephone Encounter - Lesly Banuelos RN - 09/01/2024 8:47 AM EDT Yes, on 09/29. Lesly Banuelos RN * Telephone Encounter - Lupis Poon APRN.CAROLYNE - 08/29/2024 12:07 PM EDT The following approved medication requests have been transmitted electronically. Requested Prescriptions Signed Prescriptions Disp Refills sodium chloride 0.9 %, flush, (BD POSIFLUSH) syringe 300 mL 11 Si mL once daily. Authorizing Provider: LUPIS POON APRN.CNP * Telephone Encounter - Lesly [...] Thanks, Lesly Banuelos RN documented in this encounterK[facility]10-11-2024 Telephone encounter Note * Telephone Encounter - Lupis Poon APRN.TRANSITIONS RN CARE COORDINATOR - 08/29/2024 12:07 PM EDT The following approved medication requests have been transmitted electronically. Requested Prescriptions Signed Prescriptions Disp Refills sodium chloride 0.9 %, flush, (BD POSIFLUSH) syringe 300 mL 11 Si mL once daily. Authorizing Provider: LUPIS POON APRN.TRANSITIONS RN CARE COORDINATOR [facility]10-11-2024 Telephone encounter Note* Telephone Encounter - Lesly Banuelos RN - 08/29/2024 11:59 AM EDT Will send to Adele Poon to address. Lesly Banuelos RN [facility]10-11-2024 Telephone encounter Note* Telephone Encounter [...] they call back. Thanks, Lesly Banuelos RN [facility]10-11-2024 History of Present illness Narrative* [...] Virus Vac* Unknown Pravastatin Intolerance Prednisone Unknown Yqtlhmm-Qcc-Gcr Red* Anaphylaxis MEDICATIONS: sodium chloride 0.9 %, flush, (BD POSIFLUSH) syringe 10 mL once daily. Urinary Bag (BARD URINARY DRAINAGE SYSTEM) misc 2 Bags as needed. levothyroxine (SYNTHROID) 25 mcg tablet Take 1 tablet by mouth daily before breakfast. IPRATROPIUM BROMIDE NASAL Use 1 Montegut in the nose every morning. pantoprazole DR (PROTONIX) 40 mg tablet Take 40 mg by mouth every morning. potassium chloride ER (KLOR-CON) 20 mEq tablet Take 20 mEq by mouth every morning. amLODIPine (NORVASC) 2.5 mg tablet Take 2.5 mg by mouth every morning. 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 FAXED for copy Renal failure [...] Dr. 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, no longer follows with fitter/welder LX REMOVAL RENAL MASS NEPHROSTOMY TUBE ([place], [place]) 2022 PAST SURGICAL HISTORY OF gallbladder PAST [...] months. Jin Antonio MD documented in this encounterKet[facility]08-20-2024 Telephone encounter Note * Telephone Encounter - Berna Matta - 07/08/2024 2:51 PM EDT Called about her surgery and she is on 08/13. Berna Matta [facility]08-20-2024 Miscellaneous Notes* Telephone Encounter - Berna Turpin - 07/08/2024 2:51 PM EDT Called about her surgery and she is on 08/13. Berna Matta documented in this encounterKettering [facility]08-19-2024 History of Present illness Narrative* [...] UKETONPOC, USGPOC, UHBPOC, UPHPOC, UPROPOC,UUROPOC, UNITPOC, UWBCPOC, OLPOC, [facility]] ALLERGIES Allergen Reactions Methylprednisolone Other: See Comments Bactrim [Sulfametho* Shortness of Breath Influenza Virus Vac* Unknown Pravastatin Intolerance Prednisone Unknown Wmethpe-Wku-Byn Red* Anaphylaxis MEDICATIONS: sodium chloride 0.9 %, flush, (BD POSIFLUSH) syringe 10 mL once daily. Urinary Bag (BARD URINARY DRAINAGE SYSTEM) misc 2 Bags as needed. levothyroxine (SYNTHROID) 25 mcg tablet Take 1 tablet by mouth every afternoon. IPRATROPIUM BROMIDE NASAL Use 1 Montegut in the nose every morning. pantoprazole DR (PROTONIX) 40 mg tablet Take 40 mg by mouth every morning. potassium chloride ER (KLOR-CON) 20 mEq tablet Take 20 mEq by mouth every morning. amLODIPine (NORVASC) 2.5 mg tablet Take 2.5 mg by mouth every morning. ALBUTEROL SULFATE (VENTOLIN INHALATION) Inhale 1 Montegut as instructed every 4 hours as needed [...] N39.0 Jin Antonio MD documented in this encounterKet[facility]08-16-2024 Telephone encounter Note * Telephone [...] evaluation. She voiced understanding. Lesly Banuelos RN [facility]08-16-2024 Miscellaneous Notes* Telephone Encounter - [...] understanding. Lesly Banuelos RN documented in this encounterKettering Health [facility] Center07-29-2024 Surgery Surgical operation note* Brief Op Note - Magno Campbell MD, MD - 06/16/2024 11:25 AM EDT INTERVENTIONAL RADIOLOGY POST PROCEDURE NOTE DATE: 06/16/24 NAME: Todd Delong LOG ID: [id number] Pre-Procedure Diagnosis: Hydronephrosis. Existing left nephrostomy partially pulled out Fourdrinier Wire Weaver: Surgeon(s) and Role: * Magno Campbell MD, MD - Primary Procedure: Nephrostomy [...] Please see Radiology report for complete information [facility] Work Phone: 1(418) 204-446207-29-2024 Surgical operation note* Brief Op Note - Magno Campbell MD, MD - 06/16/2024 11:25 AM EDT INTERVENTIONAL RADIOLOGY POST PROCEDURE NOTE DATE: 06/16/24 NAME: Todd Delong LOG ID: [id number] Pre-Procedure Diagnosis: Hydronephrosis. Existing left nephrostomy partially pulled out Fourdrinier Wire Weaver: Surgeon(s) and Role: * Magno Campbell MD, MD - Primary Procedure: Nephrostomy [...] report for complete information documented in this encounterKettering [facility]07-29-2024 Telephone encounter Note * Telephone Encounter - Berna Matta - 06/16/2024 8:30 AM EDT Called and made her aware and she is aware. She took nasal spray and metronidazole. IR nurses state she can take medications. Called her and she is aware. Berna Matta [facility]07-29-2024 Miscellaneous Notes* Telephone Encounter - [...] nurse 06/16 Berna Matta documented in this encounterKettering [facility]07-29-2024 Telephone encounter Note * Telephone Encounter - Berna Matta - 06/16/2024 8:16 AM EDT Messaged IR and they can see her today by 10 am. Called pt and had to leave message. Berna Matta [facility]07-29-[facility]24 Telephone encounter Note* Telephone Encounter - Berna Matta - 06/16/2024 6:54 AM EDT Per Yoselin bubble chat: called Sunday, decr L NT out put needs to go to IR today or tomorrow for L reposition/exchange Sent message to IR nurse 06/16 Berna Matta [facility]06-[facility] Surgery Surgical operation note* Brief Op Note - Jona Clark MD - 05/13/2024 9:03 AM EDT BRIEF OPERATIVE / PROCEDURE NOTE LOG ID: [id number] SURGERY/PROCEDURE DATE: 05/13/2024 INCISION/PROCEDURE START TIME: 8:44 AM INCISION CLOSE/PROCEDURE END TIME: 8:56 AM SURGEON(S)/PROCEDURALIST(S) AND MAMMALOGIST(S): Surgeon(s) and Role: * Jona Clark MD - Primary No Additional Staff SURGERY/PROCEDURE(S): Bilateral nephrostomy tube exchange. ANESTHESIA: Local FINDINGS: Routine exchange of bilateral 8 Burkinan nephrostomy tubes ESTIMATED BLOOD LOSS: Scant SPECIMENS: None COMPLICATIONS: None PRE-OP/PRE-PROCEDURE DIAGNOSIS: Chronic ureteral obstruction. POST-OP/POST-PROCEDURE DIAGNOSIS: Same as Preop SIGNATURE: Jona Clark MD PATIENT NAME: Todd Delong DATE: May 13, 2024 TIME: 9:03 AM [facility] Work Phone: 1(448) 823-609806-25-2024 Surgical operation note* Brief Op Note - Jona Clark MD - 05/13/2024 9:03 AM EDT BRIEF OPERATIVE / PROCEDURE NOTE LOG ID: [id number] SURGERY/PROCEDURE DATE: 05/13/2024 INCISION/PROCEDURE START TIME: 8:44 AM INCISION CLOSE/PROCEDURE END TIME: 8:56 AM SURGEON(S)/PROCEDURALIST(S) AND MAMMALOGIST(S): Surgeon(s) and Role: * Jona Clark MD - Primary No Additional Staff SURGERY/PROCEDURE(S): Bilateral nephrostomy tube exchange. ANESTHESIA: Local FINDINGS: Routine exchange of bilateral 8 Burkinan nephrostomy tubes ESTIMATED BLOOD LOSS: Scant SPECIMENS: None COMPLICATIONS: None PRE-OP/PRE-PROCEDURE DIAGNOSIS: Chronic ureteral obstruction. POST-OP/POST-PROCEDURE DIAGNOSIS: Same as Preop SIGNATURE: Jona Clark MD PATIENT NAME: Todd Delong DATE: May 13, 2024 TIME: 9:03 AM documented in this encounterKettering [facility]06-05-2024 Note* Addendum Note - Obi Felix APRN.CNP - 04/23/2024 12:12 PM EDTAddended by: OBI FELIX on: 04/23/2024 12:12 PM Modules accepted: Orders [facility]06-05-2024 Miscellaneous Notes* Addendum Note - Obi Felix APRN.CNP - 04/23/2024 12:12 PM EDTAddended by: OBI FELIX on: 04/23/2024 12:12 PM Modules accepted: Orders * Telephone Encounter - Obi Felix APRN.CNP - 04/23/2024 12:04 PM EDT Spoke with patient - No local pharmacy near her carry flushes- I called [facility] and they do. Order placed and patient informed. Address and phone number provided She will call if issues arise Thanks. Obi Felix APRN.CNP * Telephone Encounter - Rowan [...] the saline injections? Please let me know. EALINE Dominguez documented in this encounterKet[facility]06-05-2024 Telephone encounter Note * Telephone Encounter - Obi Felix APRN.CNP - 04/23/2024 12:04 PM EDT Spoke with patient - No local pharmacy near her carry flushes- I called [facility] and they do. Order placed and patient informed. Address and phone number provided She will call if issues arise Thanks. Obi Felix APRN.CNP [facility]06-05-2024 Telephone encounter Note* Telephone Encounter [...] injections? Please let me know. ELAINE Dominguez [facility]04-30-2024 Surgery Surgical operation note* Brief Op Note - Rocío Palmer MD, MD - 03/18/2024 4:04 PM EDT BRIEF OPERATIVE / PROCEDURE NOTE LOG ID: [id number] SURGERY/PROCEDURE DATE: 03/18/2024 INCISION/PROCEDURE START TIME: 3:45 PM INCISION CLOSE/PROCEDURE END TIME: 4:02 PM SURGEON(S)/PROCEDURALIST(S) AND MAMMALOGIST(S): Surgeon(s) and Role: * Rocío Palmer MD, [...] DATE: March 18, 2024 TIME: 4:04 PM [facility] Work Phone: [phone]) 996-461304-30-2024 Surgical operation note* Brief Op Note - Rocío Palmer MD, - 03/18/2024 4:04 PM EDT BRIEF OPERATIVE / PROCEDURE NOTE LOG ID: [id number] SURGERY/PROCEDURE DATE: 03/18/2024 INCISION/PROCEDURE START TIME: 3:45 PM INCISION CLOSE/PROCEDURE END TIME: 4:02 PM SURGEON(S)/PROCEDURALIST(S) AND MAMMALOGIST(S): Surgeon(s) and Role: * Rocío Palmer MD, [...] 2024 TIME: 4:04 PM documented in this encounterKettering [facility]04-30-2024 Telephone encounter Note * Telephone Encounter - Berna Matta - 03/18/2024 12:13 PM EDT Wendie from IR called and pt is coming in in a few hours for her neph tube replacement. Berna Matta [facility]04-30-2024 Miscellaneous Notes* Telephone Encounter - [...] RN recommended patient come to [facility] ER for evaluation and treatment today. Please advise as patient states she would wait to leave home for a little while to hear back prior to leaving for ER. Thanks, Meredith Jacome RN documented in this encounterKettering [facility]04-30-2024 Telephone encounter Note * Telephone Encounter - Berna Matta - 03/18/2024 11:47 AM EDT Called IR and spoke with Yessica and she transferred me to the IR room and spoke with Wendie and theyare going to call the patient. Called pt to make aware they are going to call her to get her scheduled and she voiced understanding. Berna Matta [facility]04-30-2024 Telephone encounter Note* Telephone Encounter - Meredith Jacome RN - 03/18/2024 10:45 AM EDT Called patient and let her know she does not need to go to ER per Dr Antonio but that she will need towait for call for reinsertion today. Patient verbalized understanding. Meredith Jacome RN [facility]04-30-2024 Telephone encounter Note* Telephone Encounter - Meredith Jacome RN - 03/18/2024 10:38 AM EDT Attempted to call patient no answer. Left message to call office back. Meredith Jacome RN [facility]04-30-2024 Telephone encounter Note* Telephone Encounter - Jin Antonio MD - 03/18/2024 10:26 AM EDT She does not need to go to the ER, but I will place order for reinsertion. That needs to happen today. [facility]04-30-20[facility] Telephone encounter Note* Telephone Encounter - Meredith Jacome RN - 03/18/2024 10:06 AM EDT Sister called in left voicemail I called patient and confirmed that patient states left nephrostomytube fell out yesterday. Patient states Dr Antonio usually schedules a date/time for her to come in tohave new one inserted. This RN recommended patient come to [facility] ER for evaluation and treatment today. Please advise as patient states she would wait to leave home for a little while to hear back prior to leaving for ER. Thanks, Meredith Jacome RN [facility]04-29-2024 Telephone encounter Note* Telephone Encounter - Radha Arnold LPN - 03/17/2024 11:05 AM EDT Gena from home care called ( [phone]) for ICD 10 code so script for drainage bag could be filled. I gave her the codes listed in her chart. Radha Arnold LPN [facility]04-29-2024 Miscellaneous Notes* Telephone Encounter - Radha Arnold LPN - 03/17/2024 11:05 AM EDT Gena from home care called ( [phone]) for ICD 10 code so script for drainage bag could be filled. I gave her the codes listed in her chart. Radha Arnold LPN documented in this encounterKettering Health [facility] Center04-29-2024 Telephone encounter Note * Telephone Encounter - Aide Archer - 03/17/2024 8:50 AM EDT Pt called regarding upcoming Interventional Rad appt wanting to change time. Referred to Interventional Radiology. Aide Archer [facility]04-29-2024 Miscellaneous Notes* Telephone Encounter - Aide Archer - 03/17/2024 8:50 AM EDT Pt called regarding upcoming Interventional Rad appt wanting to change time. Referred to Interventional Radiology. Aide Archer documented in this encounterKettering Health [facility] Center04-15-2024 History of Present illness Narrative* Jin Antonio MD - 03/03/2024 3:55 PM EDT ESTABLISHED PATIENT OFFICE VISIT F/u CRI and B ureteral obstruction. She was admitted for sepsis to [facility] for sepsis after replacing a neph tube [...] Virus Vac* Unknown Pravastatin Intolerance Prednisone Unknown Mptrcer-Qhy-Hea Red* Anaphylaxis MEDICATIONS: levothyroxine (SYNTHROID) 25 mcg tablet Take 1 tablet by mouth every afternoon. IPRATROPIUM BROMIDE NASAL Use 1 Montegut in the nose every morning. pantoprazole DR (PROTONIX) 40 mg tablet Take 40 mg by mouth every morning. potassium chloride ER (KLOR-CON) 20 mEq tablet Take 20 mEq by mouth every morning. amLODIPine (NORVASC) 2.5 mg tablet Take 2.5 mg by mouth every morning. ALBUTEROL SULFATE (VENTOLIN INHALATION) Inhale 1 Montegut as instructed every 4 hours as needed [...] elevated Jin Antonio MD documented in this encounterKettering Health Behavioral [facility] Center03-31-2024 Discharge summary Author Julianna Matthews [facility] February 17, 2024 10:52am Note Date/Time February 17, 2024 10: 14am [facility] Medical Records Department [address] [place] [address] Discharge Summary 02/17/24 1014 MR#: [id number] Acct: [id number] Name: TODD DELONG Rep #:[id number] : 1950 73 From: Julianna Matthews DO PCP: Dr. Gerardo García MD Status:ADM I N Location: [place] [address] Providers Date of Admission: 02/14/24 Date of [...] female who presented to the emergency department [facility] on 02/14/2024 with shaking chills and a documented temperature at home at 100.1 and concerns for UTI. The patient reported she has a history of recurrent urinary tract infections and had a rightnephrostomy tube reinserted because it fell out. This was performed by [facility]. Her ureteral stents were changed about 1 [...] when her nephrostomy tube was changed at [place]. Vital signs on presentation showed temperature of 98.4, heart rate bns143, blood pressure was 136/77, pulse ox was [...] encouraged close follow-up with her urologist and payroll human resources assistant. Her renal function was stable at 1.6-1.7 [...] 02/14/24 18:22: Urine pH 7.0, Ur Specific [place] 1.010 02/14/24 18:22: Ur Specific [place] 1.005, Urine Protein 100 H 02/14/24 18:22: [...] (Auto) 46.8 L, Lymph % (Auto) 41.4 H,Baylor % (Auto) 6.8, Eos % (Auto) 4.2, [...] 1. Please follow-up with your urologist and payroll human resources assistant Discharge Orders/Prescriptions Prescriptions: New ciprofloxacin HCl [Cipro] [...] Self Care Charges/Coding Visit Charges Inpatient E&M: 81170 Disch Hosp >30min 02/17/24 1052 <Electronically signed by Julianna Matthews DO> Cosigner Signature (if applicable): CC: Dr. Julianna Matthews DO; Dr. Gerardo García MD~ Signed [facility] Work Phone: 1(364) 501-328603-30-2024 Progress note Author Julianna Matthews [facility] February 16, 2024 1:33pm Note Date/Time February 16, 2024 1:3 4pm [facility] Medical Records Department [address] [place] [address] Progress Note - Hospitalist 02/16/24 1329 MR#: [id number] Acct: [id number] Name: TODD DELONG Rep #:[id number] : 1950 73 From: Julianna Matthews DO PCP: Dr. Gerardo García MD Status:ADM I N Location: [address] Reason for Visit Reason for Visit: [...] Clarity Cloudy, Urine pH 7.0, Ur Specific [place] 1.005, Urine Protein 30 H, Urine Glucose [...] % (Auto) 48.4, Lymph % (Auto) 40.6, Baylor % (Auto) 6.7, Eos % (Auto) 3.3, [...] Nephrostomy Urine Culture - Preliminary GNR lactose plastics patternmaker Gram negative king Rhythm Strip Rhythm Strip: [...] on admission Charges/Coding Visit Charges Inpatient E&M: 98591 Subs Hosp L2 02/16/24 1333 <Electronically signed by Julianna Matthews DO> Cosigner Signature (if applicable): CC: ~ Signed [facility] Work Phone: 1(436) 321-314703-29-2024 Progress note Author Julianna Matthews [facility] February 15, 2024 2:22pm Note Date/Time February 15, 2024 9:1 7am [facility] Medical Records Department [address] [place] [address] Progress Note - Hospitalist 02/15/24 0905 MR#: [id number] Acct: [id number] Name: TODD DELONG MONI Rep #:[id number] : 1950 73 From: Julianna Matthews DO PCP: Dr. Gerardo García MD Status:ADM I N Location: [address] Reason for Visit Reason for Visit: Chills/fever Subjective Subjective Mrs. Delong is a 73-year-old white female who presented to the emergency department [facility] on 02/14/2024 with shaking chills and a documented temperature at home at 100.1 and concerns for UTI. The patient reported she has a history of recurrent urinary tract infections and had a rightnephrostomy tube reinserted because it fell out. This was performed by [facility]. Her ureteral stents were changed about 1 [...] when her nephrostomy tube was changed at [place]. Vital signs on presentation showed temperature of 98.4, heart rate adu091, blood pressure was 136/77, pulse ox was [...] % (Auto) 61.4, Lymph % (Auto) 30.3, Baylor % (Auto) 6.2, Eos % (Auto) 1.3, [...] 02/14/24 18:22: Urine pH 7.0, Ur Specific [place] 1.010 02/14/24 18:22: Ur Specific [place] 1.005, Urine Protein 100 H 02/14/24 18:22: [...] 45.7 L, Lymph % (Auto) 43.8 H, Baylor % (Auto) 8.0, Eos % (Auto) 1.6, [...] on admission Charges/Coding Visit Charges Inpatient E&M: 61434 Subs Hosp L2 02/15/24 1422 <Electronically signed by Julianna Matthews DO> Cosigner Signature (if applicable): CC: ~ Signed [facility] Work Phone: 1(502) 379-830603-29-2024 Miscellaneous Notes* Telephone Encounter - Deepika Kong MA - 02/15/2024 8:20 AM EDT DTR Razia called [phone] She was admitted to [facility] for UTI. She wanted to know it you wanted her transferred here or just stay there for a few days. documented in this encounterKettering Health [facility]al [facility] Center03-29-2024 History and physical note Author Andres Fraser [facility] February 15, 2024 4:18am Note Date/Time February 14, 2024 7:1 8pm [facility] Medical Records Department [address] [place] [address] H&P Exam - Hospitalist 02/14/24 1915 MR#: [id number] Acct: [id number] Name: TODD DELONG MONI Rep #:[id number] : 1950 73 From: Andres Holt DO PCP: Dr. Gerardo García MD Status:ADM I N [facility] - [facility] General Date of Admission: [...] placement for IV antibiotics who presents to [facility] complaining of fever, shaking chills and dysuria. Ms. Delong reports her symptoms began approximately 1week prior to admission after her right ureteral stents were changed 1 week ago with a right nephrostomy tube having inadvertently been dislodged with it replaced by interventional radiology at [facility]. Apparently she was noted to have [...] to be greater than 48 hours. [facility], [facility] Medical History Acute diarrhea LULY (acute [...] Allergy UNSURE OF Verified 02/14/24 17:00 REACTION Wyxmjbn-AOJ-ApT Reductase Allergy Anaphylaxis Verified 02/14/24 17:00 Inhibitor [...] activity do you participate in: walking saurabh/protestant: Non-Pentecostal/Independent seatbelt use: always do you feel safe [...] % (Auto) 61.4, Lymph % (Auto) 30.3, Baylor % (Auto) 6.2, Eos % (Auto) 1.3, [...] 02/14/24 18:22: Urine pH 7.0, Ur Specific [place] 1.010 02/14/24 18:22: Ur Specific [place] 1.005, Urine Protein 100 H 02/14/24 18:22: [...] tube replaced yesterday by IR physician at [facility] with a known history of listed [...] her recent outpatient IV antibiotic treatment at [facility]. 2. Chronic kidney disease stage IIIb-IV; with [...] 55 minutes. Charges/Coding Visit Charges Inpatient E&M: 57716 Init Hosp L2 02/15/24 0418 <Electronically signed by Andres Maurer DO> Cosigner Signature (if applicable): CC: Dr. Andres Maurer DO; Dr. Gerardo García MD~ Signed [facility] Work Phone: 1(476) 511-315303-28-2024 Discharge summary Author Altaf Villa [facility] February 14, 2024 7:24pm Note Date/Time February 14, 2024 5:4 6pm [facility] Medical Records Department [address] [place] [address] Emergency Department Summary 02/14/24 MR#: [id number] Acct: [id number] Name: TODD DELONG MONI Rep #:[id number] : 1950 73 From: Altaf Villa MD [...] out. This was performed by IR at [facility]. Her ureteral stents were changed 1 [...] Allergy UNSURE OF Verified 02/14/24 17:00 REACTION Lnrggza-BCC-HwG Reductase Allergy Anaphylaxis Verified 02/14/24 17:00 Inhibitor [...] activity do you participate in: walking saurabh/protestant: Non-Pentecostal/Independent seatbelt use: always do you feel safe [...] % (Auto) 61.4 Lymph % (Auto) 30.3 Baylor % (Auto) 6.2 Eos % (Auto) 1.3 [...] Urine Clarity Cloudy Urine pH Ur Specific [place] Urine Protein Urine Glucose (UA) Urine Ketones [...] (Auto) Neut % (Auto) Lymph % (Auto) Baylor % (Auto) Eos % (Auto) Baso % [...] Cloudy Urine pH 6.5 7.0 Ur Specific [place] 1.010 1.005 Urine Protein 100 H Urine [...] (Auto) Neut % (Auto) Lymph % (Auto) Baylor % (Auto) Eos % (Auto) Baso % [...] Color Urine Clarity Urine pH Ur Specific [place] Urine Protein 30 H Urine Glucose (UA) [...] (Auto) Neut % (Auto) Lymph % (Auto) Baylor % (Auto) Eos % (Auto) Baso % [...] Color Urine Clarity Urine pH Ur Specific [place] Urine Protein Urine Glucose (UA) Urine Ketones [...] (Auto) Neut % (Auto) Lymph % (Auto) Baylor % (Auto) Eos % (Auto) Baso % [...] Color Urine Clarity Urine pH Ur Specific [place] Urine Protein Urine Glucose (UA) Urine Ketones [...] (Auto) Neut % (Auto) Lymph % (Auto) Baylor % (Auto) Eos % (Auto) Baso % [...] Color Urine Clarity Urine pH Ur Specific [place] Urine Protein Urine Glucose (UA) Urine Ketones [...] (Auto) Neut % (Auto) Lymph % (Auto) Baylor % (Auto) Eos % (Auto) Baso % [...] Color Urine Clarity Urine pH Ur Specific [place] Urine Protein Urine Glucose (UA) Urine Ketones [...] EKG is normal other than sinus tach. CO interval is 148 ms. QS duration 86 ms. QT duration 3 and 36 ms. [place] is normal.) Treatment and Re-Evaluation :: Patient was informed of her laboratory results. Patient prefers to be admitted to [facility]. Discharge Plan Dx/Rx/DC Orders Clinical Impression: Complicated urinary tract infection, Bilateral hydronephrosis, Chronic renal failure, stage 4 (severe), Essential hypertension, Hyperlipidemia, Leukocytosis,Sinus tachycardia Disposition Disposition: Acute Care Hospital [facility] What to do if you have Problems For any increased pain, shortness of breath, bleeding, nausea or vomiting, chestpain, or any unexpected problems, contact your Primary Care Provider. Call [facility] ([phone]) or report to the closest Emergency Room. Call 911 if necessary. 02/14/241923 <Electronically signed by Altaf Villa MD> Cosigner Signature (if applicable): CC: Dr. Gerardo García MD ~ Signed [facility] Work Phone: 1(337) 137-942703-28-2024 Discharge summary Author Altaf Villa [facility] February 14, 2024 7:24pm Note Date/Time February 14, 2024 5:4 6pm [facility] Medical Records Department [address] [place] [address] Emergency Department Summary 02/14/24 MR#: [id number] Acct: [id number] Name: TODD DELONG Rep #:[id number] : 1950 73 From: Altaf Villa MD [...] out. This was performed by IR at [facility]. Her ureteral stents were changed 1 [...] Allergy UNSURE OF Verified 02/14/24 17:00 REACTION Codozap-UTG-BkK Reductase Allergy Anaphylaxis Verified 02/14/24 17:00 Inhibitor [...] physical activity do you participate in: walking saruabh/protestant: Non-Pentecostal/Independent seatbelt use: always do you feel safe [...] % (Auto) 61.4 Lymph % (Auto) 30.3 Baylor % (Auto) 6.2 Eos % (Auto) 1.3 [...] Urine Clarity Cloudy Urine pH Ur Specific [place] Urine Protein Urine Glucose (UA) Urine Ketones [...] (Auto) Neut % (Auto) Lymph % (Auto) Baylor % (Auto) Eos % (Auto) Baso % [...] Cloudy Urine pH 6.5 7.0 Ur Specific [place] 1.010 1.005 Urine Protein 100 H Urine [...] (Auto) Neut % (Auto) Lymph % (Auto) Baylor % (Auto) Eos % (Auto) Baso % [...] Color Urine Clarity Urine pH Ur Specific [place] Urine Protein 30 H Urine Glucose (UA) [...] (Auto) Neut % (Auto) Lymph % (Auto) Baylor % (Auto) Eos % (Auto) Baso % [...] Color Urine Clarity Urine pH Ur Specific [place] Urine Protein Urine Glucose (UA) Urine Ketones [...] (Auto) Neut % (Auto) Lymph % (Auto) Baylor % (Auto) Eos % (Auto) Baso % [...] Color Urine Clarity Urine pH Ur Specific [place] Urine Protein Urine Glucose (UA) Urine Ketones [...] (Auto) Neut % (Auto) Lymph % (Auto) Baylor % (Auto) Eos % (Auto) Baso % [...] Color Urine Clarity Urine pH Ur Specific [place] Urine Protein Urine Glucose (UA) Urine Ketones [...] (Auto) Neut % (Auto) Lymph % (Auto) Baylor % (Auto) Eos % (Auto) Baso % [...] Color Urine Clarity Urine pH Ur Specific [place] Urine Protein Urine Glucose (UA) Urine Ketones [...] EKG is normal other than sinus tach. CO interval is 148 ms. QS duration 86 ms. QT duration 3 and 36 ms. [place] is normal.) Treatment and Re-Evaluation :: Patient was informed of her laboratory results. Patient prefers to be admitted to [facility]. Discharge Plan Dx/Rx/DC Orders Clinical Impression: Complicated urinary tract infection, Bilateral hydronephrosis, Chronic renal failure, stage 4 (severe), Essential hypertension, Hyperlipidemia, Leukocytosis,Sinus tachycardia Disposition Disposition: Acute Care Hospital [facility] What to do if you have Problems For any increased pain, shortness of breath, bleeding, nausea or vomiting, chestpain, or any unexpected problems, contact your Primary Care Provider. Call [facility] ([phone]) or report to the closest Emergency Room. Call 911 if necessary. 02/14/241923 <Electronically signed by Altaf Villa MD> Cosigner Signature (if applicable): CC: Dr. Gerardo García MD ~ Signed [facility] Work Phone: 1(902) 133-574103-25-2024 Miscellaneous Notes* Telephone Encounter - Berna Matta - 02/11/2024 1:35 PM EDT Claire from IR called and she is on 02/12 at 8:00. She needs to arrive at 6:30 and be NPO after midnight, and she needs a escort vehicle driver. Called pt and had to leave message. Berna Matta * Telephone Encounter - Stacey Keating - 02/11/2024 1:14 PM EDT Received bubble chat message Sunday at 2:05PM from stating Her RIGHT neph tube was accidentally pulled out Sunday night. I placed order for replacement. I would like it replaced Sunday I had to leave a message with IR at 3803 02/11/24, informed them in the voicemail it [...] to proceed? Berna Matta documented in this [facility]02[facility] Miscellaneous Notes* SN Agency DC - Breann Woods RN - 01/10/2024 11:10 AM EST SITUATION: Mcc agency discharge visit completed today. only patient [...] a long way. pt saw her new payroll human resources assistant Dr Miller in [place] on sunday. pt states he was pleasedwith [...] for additional medical questions/concerns. documented in this encounterK[facility]02-15-2024 Miscellaneous Notes* [facility] Routine - Breann Woods RN - 01/03/2024 2:15 PM EST SITUATION: Mcc routine visit completed today. only patient also [...] (Dr Miller) next week, he is her payroll human resources assistant. pt states she is eating and drink [...] on (be specific): discharge documented in this encounterK[facility]02-13-2024 Miscellaneous Notes* Sedation Documentation - Shazia Toribio RN - 01/01/2024 1:33 PM EST Reviewed flushing and site care with pt who expressed understanding,. * Sedation Documentation - Shazia Toribio RN - 01/01/2024 12:50 PM EST R PTN out of place, pt prepped for exchange. 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 daughter also present [...] dr Antonio yesterday. and she is seeing payroll human resources assistant next week for follow up. pt states [...] tube dressing change and assesment, how did payroll human resources assistant visit go? documented in this encounterK[facility]02-06-2024 Miscellaneous Notes* Telephone Encounter - Berna Matta - 12/25/2023 10:24 AM EST Called pt and she is on 02/06. Pt is on for a stent exchange under general anaesthesia with on 02/06. CASE# [id number] Pt is aware of prep and arrival instructions given verbally on 12/25. Pt states she is not on any blood thinners. Mailed instructions 12/25. Post op 02/24 at 1:30 in the [place] office. Berna Matta documented in this encounterK[facility]02-06-2024 Miscellaneous Notes* Telephone Encounter - Silke Esparza - 12/25/2023 8:58 AM EST LVM for patient to see if they want bi-lateral nephrostagram at [facility] or [facility]. documented in this encounterK[facility]02-05-2024 History of Present illness Narrative* [...] Virus Vac* Unknown Pravastatin Intolerance Prednisone Unknown Wffjtyu-Hmf-Pgy Red* Anaphylaxis MEDICATIONS: pantoprazole DR (PROTONIX) 40 mg tablet Take 40 mg by mouth once daily. potassium chloride ER (KLOR-CON) 20 mEq tablet Take 20 mEq by mouth once daily. amLODIPine (NORVASC) 2.5 mg tablet Take 2.5 mg by mouth once daily. ALBUTEROL SULFATE (VENTOLIN INHALATION) Inhale 1 Monte[place] as instructed every 4 hours as needed [...] (06/2020) Jin Antonio MD documented in this encounterK[facility]02-02-2024 Miscellaneous Notes* Telephone Encounter - Kari Flor - 12/21/2023 4:31 PM EST Called and left a message for Shazia. Informing her of message from Dr. Antonio. Inderjit number is [phone] Kari Basia * Telephone Encounter - Jin [...] Please advise. Kari Basia documented in this encounterKet[facility]02-02-2024 Miscellaneous Notes* HH CARE COORDINATION - Emanuel Curtis, ANISH - 12/21/2023 2:40 PM EST This SN has not heard back from the office of Dr. Veronica Antonio. This SN attempted to call the office once again to follow up. This SN contacted the [place] office and was informed there was no Dr. Veronica Antonio affiliated with that [place] office. This SN reaserched other options and noted there was a [facility] office associated with this particulary Dr. Veronica Antonio. This SN then placed a call and left a message for the [facility] office. This SN reported the same issues from yesterday and am now awaiting a call back with recommendations.Patient has a follow up appointment scheduled with Dr. Antonio on Sunday12/24/23. documented in this encounterK[facility]02-01-2024 Miscellaneous Notes* Telephone Encounter - [...] was regular at 86. Please call pt [phone] or pt's daughter [phone] for adivce. Thank you documented in this encounterKet[facility]02-01-2024 Miscellaneous Notes* SN Routine - Joey Strange RN - 12/20/2023 12:52 PM EST SITUATION: Mcc routine visit completed today. only patient also [...] issues, HTN, irregular HR. documented in this encounterK[facility]12-26-2023 Discharge summary Author Rafa Lofton [facility] November 13, 2023 11:05am Note Date/Time November 13, 2023 11:01am [facility] Medical Records Department [address] [place] [address] Discharge Summary 11/13/23 1058 MR#: [id number] Acct: [id number] Name: TODD DELONG Rep #:[id number] : 1950 73 From: Rafa Lofton DO PCP: Dr. Gerardo García MD Status:ADM I N Location: [place] [address] Providers Date of Admission: 11/10/23 Primary Care [...] % (Auto) Cancelled, Lymph % (Auto) Cancelled, Baylor % (Auto) Cancelled, Eos % (Auto) Cancelled, [...] Tear DropCells Cancelled, Ovalocytes Cancelled, Stomatocytes Cancelled, Gamino-Quinter Bodies Cancelled, [place] Cells Cancelled, Bite Cells Cancelled, Crenated Cell [...] (Auto) 74.1 H, Lymph % (Auto) 19.0, Baylor % (Auto) 4.5, Eos % (Auto) 1.0, [...] be on nitrofurantoin. Please follow-up with Dr. Strickalnd as it may be concerning that your [...] Self Care Charges/Coding Visit Charges Inpatient E&M: 31609 Disch Hosp >30min 11/13/23 1105 <Electronically signed by Rafa Lofton DO> Cosigner Signature (if applicable): CC: Dr. Rafa Lofton DO; Dr. Gerardo García MD~ Signed [facility] Work Phone: 1(226) 203-827712-26-2023 Progress note Author Rafa Lofton [facility] November 13, 2023 10:58am Note Date/Time November 13, 2023 7:33am [facility] Medical Records Department [address] [place] [address] Progress Note - Hospitalist 11/13/23728 MR#: [id number] Acct: [id number] Name: TODD DELONG Rep #:[id number] : 1950 73 From: Rafa Lofton DO PCP: Dr. Gerardo García MD Status:ADM I N Location: [place] [address] Reason for Visit Reason for Visit: Diagnoses [...] % (Auto) Cancelled, Lymph % (Auto) Cancelled, Baylor % (Auto) Cancelled, Eos % (Auto) Cancelled, [...] Drop Cells Cancelled, Ovalocytes Cancelled, Stomatocytes Cancelled, Gamino-Quinter Bodies Cancelled, Annette Cells Cancelled, Bite Cells [...] (Auto) 74.1 H, Lymph % (Auto) 19.0, Baylor % (Auto) 4.5, Eos % (Auto) 1.0, [...] Cosigner Signature (if applicable): CC: ~ Signed [facility] Work Phone: 1(359) 986-805412-25-2023 Progress note Author Rafa Lofton [facility] November 12, 2023 10:42am Note Date/Time November 12, 2023 7:30am [facility] Medical Records Department [address] [place] [address] Progress Note - Hospitalist 11/12/23 07 MR#: [id number] Acct: [id number] Name: TODD DELONG MONI Rep #:[id number] : 1950 73 From: Rafa Lofton DO PCP: Dr. Gerardo García MD Status:ADM I N Location: [place] [address] Reason for Visit Reason for Visit: Diagnoses [...] 77.4 H, Lymph % (Auto) 16.6 L, Baylor % (Auto) 4.4, Eos % (Auto) 0.1, [...] sq daily Charges/Coding Visit Charges Inpatient E&M: 22073 Subs Hosp L2 11/12/23 1042 <Electronically signed by Rafa Lofton DO> Cosigner Signature (if applicable): CC: ~ Signed [facility] Work Phone: 1(238) 822-265712-24-2023 Progress note Author Rafa Lofton [facility] November 11, 2023 11:07am Note Date/Time November 11, 2023 7:32am [facility] Medical Records Department [address] [place] [address] Progress Note - Hospitalist 11/11/23722 MR#: [id number] Acct: [id number] Name: TODD DELONG Rep #:[id number] : 1950 73 From: Rafa Lofton DO PCP: Dr. Gerardo García MD Status:ADM I N Location: [place] [address] Reason for Visit Reason for Visit: Diagnoses [...] Clarity Cloudy, Urine pH 6.5, Ur Specific [place] 1.010, Urine Protein 100 H, Urine Glucose [...] % (Auto) 56.4, Lymph % (Auto) 36.1, Baylor % (Auto) 5.9, Eos % (Auto) 0.6, [...] % (Auto) 70.1 H, Lymph % (Auto)22.1, Baylor % (Auto) 6.4, Eos % (Auto) 0.2, [...] sq daily Charges/Coding Visit Charges Inpatient E&M: 45471 Subs Hosp L2 11/11/23 1107 <Electronically signed by Rafa Lofton DO> Cosigner Signature (if applicable): CC: ~ Signed [facility] Work Phone: 1(599) 612-376612-24-2023 History and physical note Author Andres Fraser [facility] November 11, 2023 6:53am Note Date/Time November 10, 2023 10:59pm [facility] Medical Records Department [address] [place] [address] H&P Exam - Hospitalist 11/10/232220 MR#: [id number] Acct: [id number] Name: TODD DELONG Rep #:[id number] : 1950 73 From: Andres Holt DO PCP: Dr. Gerardo García MD Status:ADM I N Location: [facility] MP056-3 HPI - General General Date of Admission: [...] started on oral Keflex who presents to [facility] complaining of worsening UTI and spite [...] to be greater than 48 hours. [facility], [facility] Medical History Acute diarrhea LULY (acute [...] Allergy UNSURE OF Verified 11/10/23 20:07 REACTION Lwmsile-BDB-PuT Reductase Allergy Anaphylaxis Verified 11/10/23 20:07 Inhibitor [...] activity do you participate in: walking saurabh/protestant: Non-Pentecostal/Independent seatbelt use: always do you feel safe [...] Clarity Cloudy, Urine pH 6.5, Ur Specific [place] 1.010, Urine Protein 100 H, Urine Glucose [...] % (Auto) 56.4, Lymph % (Auto) 36.1, Baylor % (Auto) 5.9, Eos % (Auto) 0.6, [...] responsive hypotension Charges/Coding Visit Charges Inpatient E&M: 15256 Init Hosp L2 11/11/23 0653 <Electronically signed by Andres Maurer DO> Cosigner Signature (if applicable): CC: Dr. Andres Maurer DO; Dr. Gerardo García MD~ Signed [facility] Work Phone: 1(470) 280-437512-24-2023 Discharge summary Author South Gutiérrez [facility] November 10, 2023 10:27pm Note Date/Time November 10, 2023 9:10pm [facility] Medical Records Department [address] [place] [address] Emergency Department Summary 11/10/23 MR#: [id number] Acct: [id number] Name: TODD DELONG MONI Rep #:[id number] : 1950 73 From: South Gutiérrez MD [...] Allergy UNSURE OF Verified 11/10/23 20:07 REACTION Btdwglg-YIZ-HeK Reductase Allergy Anaphylaxis Verified 11/10/23 20:07 Inhibitor [...] activity do you participate in: walking saurabh/protestant: Non-Pentecostal/Independent seatbelt use: always do you feel safe [...] % (Auto) 56.4 Lymph % (Auto) 36.1 Baylor % (Auto) 5.9 Eos % (Auto) 0.6 [...] Clarity Cloudy Urine pH 6.5 Ur Specific [place] 1.010 Urine Protein 100 H Urine Glucose [...] your Primary Care Provider. Call [facility] ([phone]) or report to the closest Emergency Room. Call 911 if necessary. 11/10/232226 <Electronically signed by South Gutiérrez MD> Cosigner Signature (if applicable): CC: Dr. Gerardo García MD ~ Signed [facility] Work Phone: 1(348) 533-133612-04-2023 Miscellaneous Notes* Telephone Encounter - Berna Matta - 10/22/2023 2:00 PM EST Pt had stent placed on 10/11 how to proceed? Berna Matta documented in this encounterK[facility]11-21-2023 Discharge summary Author Carlene Bower [facility] October 09, 2023 4:39pm Note Date/Time October 09, 2023 2:01pm [facility] Medical Records Department [address] [place] [address] Emergency Department Summary 10/09/23 MR#: [id number] Acct: [id number] Name: TODD DELONG Rep #:[id number] : 1950 73 From: Carlene Bower MD [...] this she tends to get chronic UTIs. [facility] Medical History Acute diarrhea LULY (acute kidney [...] Allergy UNSURE OF Verified 10/09/23 16:10 REACTION Bkdlptw-GBU-XsC Reductase Allergy Anaphylaxis Verified 10/09/23 13:34 Inhibitor [...] activity do you participate in: walking saurabh/protestant: Non-Pentecostal/Independent seatbelt use: always do you feel safe [...] Physical Exam Const Vital Signs: 10/09/23 13:34 11/21/23 14:28 10/09/23 15:33 Temperature 97.6 F L [...] Medical decision making narrative: Patient placed on floor helper. IV line initiated. Labwork obtained to evaluate [...] [facility] she has bilateral ureteral scarring that [...] % (Auto) 64.5 Lymph % (Auto) 26.5 Baylor % (Auto) 5.7 Eos % (Auto) 1.0 [...] Clarity Cloudy Urine pH 6.0 Ur Specific [place] 1.010 Urine Protein 100 H Urine Glucose [...] stents. 3. Hysterectomy. 4. Cholecystectomy. Electronically Signed: Coleen Estrada MD at 15:22 EST , Treatment [...] culture obtained yesterdayis growing gram-negative rods lactose plastics patternmaker's. Patient is given a dose of IV [...] care. Patient has been accepted by hospitalist [facility]. We will arrange transport once bed [...] Disposition Disposition: Acute Care Hospital Discharge Location: [facility] What to do if you have Problems For any increased pain, shortness of breath, bleeding, nausea or vomiting, chestpain, or any unexpected problems, contact your Primary Care Provider. Call [facility] ([phone]) or report to the closest Emergency Room. Call 911 if necessary. 10/09/23 7499 <Electronically signed by Carlene Bower MD> Cosigner Signature (if applicable): CC: Dr. Gerardo García MD ~ Signed [facility] Work Phone: 1(497) 349-343511-04-2023 Discharge summary Author Rafa Lofton [facility] September 22, 2023 10:55am Note Date/Time September 22, 2023 1 0:49am [facility] Medical Records Department [address] [place] [address] Discharge Summary 09/22/23 1047 MR#: [id number] Acct: [id number] Name: TODD DELONG Rep #:[id number] : 1950 73 From: Rafa Lofton DO PCP: Dr. Gerardo García MD Status:ADM I N Location: [place] [address] Providers Date of Admission: 09/19/23 Primary Care [...] % (Auto) 51.1, Lymph % (Auto) 39.6, Baylor % (Auto) 6.1, Eos % (Auto) 1.9, [...] % (Auto) 48.9, Lymph % (Auto) 40.4, Baylor % (Auto) 7.5, Eos % (Auto) 2.0, [...] Attending Provider: Rafa Lofton Primary Care Provider: Gearrdo García [employer] Providers: Ky Goddard; Joshua Strickland; Anrdes Maurer; Alivia Mcrae Instructions Additional Instructions / [...] Self Care Charges/Coding Visit Charges Inpatient E&M: 80519 Disch Hosp >30min 09/22/23 1055 <Electronically signed by Rafa Lofton DO> Cosigner Signature (if applicable): CC: Dr. Rafa Lofton DO; Dr. Gerardo García MD~ Signed [facility] Work Phone: 1(419) 776-397311-04-2023 Progress note Author Rafa darby [facility] September 22, 2023 10:47am Note Date/Time September 22, 2023 7 :37am [facility] Medical Records Department [address] [place] [address] Progress Note - Hospitalist 09/22/23 0732 MR#: [id number] Acct: [id number] Name: TODD DELONG MONI Rep #:[id number] : 1950 73 From: Rafa Lofton DO PCP: Dr. Gerardo García MD Status:ADM I N Location: [place] [address] Reason for Visit Reason for Visit: Diagnoses [...] % (Auto) 51.1, Lymph % (Auto) 39.6, Baylor % (Auto) 6.1, Eos % (Auto) 1.9, [...] % (Auto) 48.9, Lymph % (Auto) 40.4, Baylor % (Auto) 7.5, Eos % (Auto) 2.0, [...] Cosigner Signature (if applicable): CC: ~ Signed [facility] Work Phone: 1(305) 236-149111-04-2023 Progress note Author Joshua Strickland [facility] September 22, 2023 9:04am Note Date/Time September 22, 2023 9 :04am [facility] Medical Records Department [address] [place] [address] Progress Note - Urology 09/22/23903 MR#: [id number] Acct: [id number] Name: TODD DELONG Rep #:[id number] : 1950 73 From: Joshua Strickland MD PCP: Dr. Gerardo García MD Status:ADM I N Location: [place] [address]1 Subjective Subjective cr improvingto 2.05 Ct scan [...] % (Auto) 51.1, Lymph % (Auto) 39.6, Baylor % (Auto) 6.1, Eos % (Auto) 1.9, [...] % (Auto) 48.9, Lymph % (Auto) 40.4, Baylor % (Auto) 7.5, Eos % (Auto) 2.0, [...] Cosigner Signature (if applicable): CC: ~ Signed [facility] Work Phone: 1(105) 398-557011-03-2023 Progress note Author Alivia [facility] September 21, 2023 5:23pm Note Date/Time September 21, 2023 3 :24pm [facility] Medical Records Department [address] [facility] [place] [address] Progress Note 09/21/23 1521 MR#: [id number] Acct: [id number] Name: TODD DELONG Rep #:[id number] : 1950 73 From: Alivia Mcrae MD PCP: Dr. Gerardo García MD Status:ADM I N Location: [place] [address] Subjective Subjective Patient seen and examined. She [...] renally dosed Charges/Coding Visit Charges Inpatient E&M: 35766 Subs Hosp L2 09/21/23 1723 <Electronically signed by Alivia Mcrae MD> Alivia Mcrae MD Cosigner Signature (if applicable): CC: ~ Signed [facility] Work Phone: 1(357) 220-398511-03-2023 Progress note [facility] September 21, 2023 12:24pm Note Date/Time September 21, 2023 1 2:25pm [facility] Medical Records Department [address] [place] [address] Progress Note - Infect Disease 09/21/23 1223 MR#: [id number] Acct: [id number] Name: TODD DELONG Rep #:[id number] : 1950 73 From: Ky tejeda MD PCP: Dr. Gerardo García MD Status:ADM I N Location: [place] [address] Physical Exam Narrative Feeling better, no fever, [...] Cosigner Signature (if applicable): CC: ~ Signed [facility] Work Phone: 1([phone]) 994-946211-03-2023 Consult note Author Joshua Strickland [facility] September 21, 2023 8:24am Note Date/Time September 21, 2023 8 :24am [facility] Medical Records Department [address] [place] [address] Consultation - Urology 09/21/23818 MR#: [id number] Acct: [id number] Name: TODD DELONG Rep #:[id number] : 1950 73 From: Joshua Strickland MD PCP: Dr. Gerardo García MD Status:ADM I N Location: [place] [address] HPI Consult Data Date of Consult: 09/21/23 [...] and recently cr improving. will Follow. [facility], [facility] Medical History Acute diarrhea LULY (acute [...] Severe Shortness Verified 09/19/23 09:25 of breath Qhfmlmp-DZS-EgW Reductase Allergy Anaphylaxis Verified 09/19/23 09:25 Inhibitor [...] activity do you participate in: walking saurabh/protestant: Non-Pentecostal/Independent seatbelt use: always do you feel safe [...] Goddard MD; Dr. Gerardo García MD~ Signed [facility] Work Phone: 1(117) 145-565711-02-2023 Progress note Author Andres Fraser [facility] September 20, 2023 1:13pm Note Date/Time September 20, 2023 7 :13am [facility] Medical Records Department [address] [place] [address] Progress Note - Hospitalist 09/20/23711 MR#: [id number] Acct: [id number] Name: TODD DELONG Rep #:[id number] : 1950 73 From: Andres Holt DO PCP: Dr. Gerardo García MD Status:ADM I N Location: [place]3 PI843-3 Reason for Visit Reason for Visit: Diagnoses [...] Std Deviation 51.6 H, RDW Coeff of Dewye 14.6, Plt Count 442, MPV 10.2, Immature Gran % (Auto) 0.700, Neut % (Auto) 64.2, Lymph % (Auto) 28.9, Baylor % (Auto) 5.5, Eos % (Auto) 0.3, [...] Clarity Cloudy, Urine pH 6.0, Ur Specific [place] 1.015, Urine Protein 100 H, Urine Glucose [...] Finally, we will consult Dr. Goddard of ID to see this patient in consultation later [...] Multi Select Codes Visit Charges Visit Charges: 44597 Subs Hosp L2 09/20/23 1313 <Electronically signed by Andres de Evelio DO> Cosigner Signature (if applicable): CC: ~ Signed [facility] Work Phone: 1(570) 918-395411-02-2023 Consult note Author Ky Goddard [facility] September 20, 2023 10:45am Note Date/Time September 20, 2023 1 0:45am [facility] Medical Records Department [address] [place] [address] Consultation - Infectious Dx 09/20/23 1041 MR#: [id number] Acct: [id number] Name: TODD DELONG Rep #:[id number] : 1950 73 From: Ky tejeda MD PCP: Dr. Gerardo García MD Status:ADM I N Location: [address] Assessment & Plan Assessment/Plan (1) Complicated urinary [...] and neg except as noted above. [facility] Medical History Acute diarrhea LULY (acute [...] Severe Shortness Verified 09/19/23 09:25 of breath Oxscnjg-EXJ-XkV Reductase Allergy Anaphylaxis Verified 09/19/23 09:25 Inhibitor [...] activity do you participate in: walking saurabh/protestant: Non-Pentecostal/Independent seatbelt use: always do you feel safe [...] Clarity Cloudy, Urine pH 6.0, Ur Specific [place] 1.015, Urine Protein 100 H, Urine Glucose [...] Neut % (Auto) 51.9, Lymph % (Auto) 39.5,Baylor % (Auto) 6.1, Eos % (Auto) 1.5, [...] Catch Urine Culture - Preliminary GNR lactose plastics patternmaker GNR lactose plastics patternmaker#2 09/19/23 10:24 Stool C. difficile DNA Amplification - Final Radiology Impression Renal Ultrasound 09/19/23 14:38 IMPRESSION: Bilateral hydronephrosis. Electronically Signed: Javan Grady MD at 22:38 EDT , 09/20/23 1045 <Electronically signed by Ky Goddard MD> Cosigner Signature (if applicable): CC: Dr. Ky Goddard MD; Dr. Gerardo García MD~ Signed [facility] Work Phone: 1([phone]) 906-254611-01-2023 History and physical note Author Andres Fraser [facility] September 19, 2023 4:17pm Note Date/Time September 19, 2023 1 :42pm [facility] Medical Records Department [address] [place] [address] H&P Exam - Hospitalist 09/19/23 1338 MR#: [id number] Acct: [id number] Name: TODD DELONG Rep #:[id number] : 1950 73 From: Andres Holt DO PCP: Dr. Gerardo García MD Status:ADM I N Location: [address] HPI - General General Date of [...] placement for IV antibiotics who presents to [facility] complaining of low-grade fever with loose [...] to be greater than 48 hours. [facility] Medical History Acute diarrhea LULY (acute [...] Severe Shortness Verified 09/19/23 09:25 of breath Bauikwv-JEF-ZcJ Reductase Allergy Anaphylaxis Verified 09/19/23 09:25 Inhibitor [...] activity do you participate in: walking saurabh/protestant: Non-Pentecostal/Independent seatbelt use: always do you feel safe [...] % (Auto) 64.2, Lymph % (Auto) 28.9, Baylor % (Auto) 5.5, Eos % (Auto) 0.3, [...] Clarity Cloudy, Urine pH 6.0, Ur Specific [place] 1.015, Urine Protein 100 H, Urine Glucose [...] Maurer DO; Dr. Gerardo García MD~ Signed [facility] Work Phone: 1(501) 734-855511-01-2023 Discharge summary Author Altaf Villa [facility] September 19, 2023 12:45pm Note Date/Time September 19, 2023 9 :58am [facility] Medical Records Department [address] [place] [address] Emergency Department Summary 09/19/23 MR#: [id number] Acct: [id number] Name: TODD DELONG Rep #:[id number] : 1950 73 From: Altaf Villa MD [...] Severe Shortness Verified 09/19/23 09:25 of breath Vdepgan-DZB-OaV Reductase Allergy Anaphylaxis Verified 09/19/23 09:25 Inhibitor [...] activity do you participate in: walking saurabh/protestant: Non-Pentecostal/Independent seatbelt use: always do you feel safe [...] % (Auto) 64.2 Lymph % (Auto) 28.9 Baylor % (Auto) 5.5 Eos % (Auto) 0.3 [...] Clarity Cloudy Urine pH 6.0 Ur Specific [place] 1.015 Urine Protein 100 H Urine Glucose [...] kidney disease Disposition Disposition: Acute Care Hospital [facility] What to do if you have Problems For any increased pain, shortness of breath, bleeding, nausea or vomiting, chestpain, or any unexpected problems, contact your Primary Care Provider. Call [facility] ([phone]) or report to the closest Emergency Room. Call 911 if necessary. 09/19/23 1245 <Electronically signed by Altaf Villa MD> Cosigner Signature (if applicable): CC: Dr. Gerardo García MD ~ Signed [facility] Work Phone: 1(506) 796-125211-01-2023 Discharge summary Author Altaf Villa [facility] September 19, 2023 12:45pm Note Date/Time September 19, 2023 9 :58am [facility] Medical Records Department [address] [place] [address] Emergency Department Summary 09/19/23 MR#: [id number] Acct: [id number] Name: TODD DELONG Rep #:[id number] : 1950 73 From: Altaf Villa MD [...] Prior similar symptoms: No Recent Illness/Hospitalization: Yes [facility] Medical History Acute diarrhea LULY (acute [...] Severe Shortness Verified 09/19/23 09:25 of breath Aajunqx-PCE-SgJ Reductase Allergy Anaphylaxis Verified 09/19/23 09:25 Inhibitor [...] activity do you participate in: walking saurabh/protestant: Non-Pentecostal/Independent seatbelt use: always do you feel safe [...] % (Auto) 64.2 Lymph % (Auto) 28.9 Baylor % (Auto) 5.5 Eos % (Auto) 0.3 [...] Clarity Cloudy Urine pH 6.0 Ur Specific [place] 1.015 Urine Protein 100 H Urine Glucose [...] kidney disease Disposition Disposition: Acute Care Hospital [facility] What to do if you have Problems For any increased pain, shortness of breath, bleeding, nausea or vomiting, chestpain, or any unexpected problems, contact your Primary Care Provider. Call [facility] ([phone]) or report to the closest Emergency Room. Call 911 if necessary. 09/19/23 5879 <Electronically signed by Altaf Villa MD> Cosigner Signature (if applicable): CC: Dr. Gerardo García MD ~ Signed [facility] Work Phone: [phone]) 495-874909-19-2023 Discharge summary Author John Light [facility] August 07, 2023 11:51am Note Date/Time August 07, 2023 11:47am [facility] Medical Records Department [address] [place] [address] Instructions for Home/Discharge Instructions 08/07/23 1144 MR#: [id number] Acct: [id number] Name: TODD DELONG Rep #:[id number] : 1950 72 From: John Light DO [...] pseudomonas pyelonephritis weekly bmp, cbc. Fax to [phone] Continued albuterol sulfate [Ventolin HFA] 90 mcg/actuation [...] MD; Dr. Gerardo García MD ~ Signed [facility] Work Phone: 1(118) 417-619909-18-2023 Consult note Author Ky Goddard [facility] August 06, 2023 7:15pm Note Date/Time August 06, 2023 7:15pm [facility] Medical Records Department [address] [place] [address] Consultation - Infectious Dx 08/06/231911 MR#: [id number] Acct: [id number] Name: TODD DELONG Rep #:[id number] : 1950 72 From: Ky tejeda MD PCP: Dr. Gerardo García MD Status:ADM I N Location: [address] Assessment & Plan Assessment/Plan (1) Hydronephrosis: QUALIFIERS: Hydronephrosis type: other Qualified Code(s): N13.39 - Other hydronephrosis (2) Complicated urinary tract infection: PLAN: Now s/p 08/06/23 bilat stent exchange by Dr. Strickland. Ucx again with PsA. On zosyn. Will order midline and 2 week course home iv abx. Will follow, thank you, d/w rn case mgr HPI Consult Data Date of Consult: 08/06/23 [...] performed and neg except as noted above. [facility] Medical History Acute diarrhea LULY (acute kidney [...] Severe Shortness Verified 06/08/23 09:50 of breath Ikputbo-SCU-YvV Reductase Allergy Anaphylaxis Verified 06/08/23 09:50 Inhibitor [...] activity do you participate in: walking saurabh/protestant: Non-Pentecostal/Independent seatbelt use: always do you feel safe [...] Nitza MD; Dr. Gerardo García MD~ Signed [facility] Work Phone: 1(482) 413-779209-18-2023 Progress note Author John Light [facility] August 06, 2023 6:05pm Note Date/Time August 06, 2023 6:05pm [facility] Medical Records Department [address] [place] [address] Progress Note - Hospitalist 08/06/231756 MR#: [id number] Acct: [id number] Name: TODD DELONG Rep #:[id number] : 1950 72 From: John Light DO PCP: Dr. Gerardo García MD Status:ADM I N Location: [place] [address] Reason for Visit Reason for Visit: Diagnoses [...] 35 minutes Charges/Coding Visit Charges Inpatient E&M: 70820 Subs Hosp L2 08/06/23 1805 <Electronically signed by John Light DO> Cosigner Signature (if applicable): CC: ~ Signed [facility] Work Phone: 1(612) 284-745709-18-[address] [facility] 08-05-2023 Progress note Author Rafa Lofton [facility] August 05, 2023 12:39pm Note Date/Time August 05, 2023 7:21am [facility] Medical Records Department [address] [place] [address] Progress Note - Hospitalist 08/05/23 0717 MR#: [id number] Acct: [id number] Name: TODD DELONG MONI Rep #:[id number] : 1950 72 From: Rafa Lofton DO PCP: Dr. Gerardo García MD Status:ADM I N Location: [place] [address] Reason for Visit Reason for Visit: Diagnoses [...] Neut % (Auto) 55.3, Lymph % (Auto) 35.3,Baylor % (Auto) 7.0, Eos % (Auto) 1.5, [...] Disposition: TBD Charges/Coding Visit Charges Inpatient E&M: 03170 Subs Hosp L2 08/05/23 0408 <Electronically signed by Rafa Lofton DO> Cosigner Signature (if applicable): CC: ~ Signed [facility] Work Phone: 1(832) 996-124609-17-2023 Consult note Author Joshua Strickland [facility] August 05, 2023 11:50am Note Date/Time August 05, 2023 11:50am [facility] Medical Records Department [address] [place] [address] Consultation 08/05/23 1149 MR#: [id number] Acct: [id number] Name: TODD DELONG MONI Rep #:[id number] : 1950 72 From: Joshua Strickland MD PCP: Dr. Gerardo García MD Status:ADM I N Location: [place] [address] Consult Date of Consult: 08/05/23 Reason for Consult 72-year-old female presents the hospital with urinary tract infection with Pseudomonas she is on appropriate antibiotics to cover the Pseudomonas. I have her on the schedule for tomorrow for cystoscopy and bilateral stent changes and can upsize the stents from 6 Burkinan 7 Burkinan to help drain both kidneys she still [...] Echeverria MD; Dr. Gerardo García MD~ Signed [facility] Work Phone: [phone]) 540-553609-16-2023 Progress note Author Rafa Lofton [facility] August 04, 2023 12:41pm Note Date/Time August 04, 2023 7:26am [facility] Medical Records Department [address] [place] [address] Progress Note - Hospitalist 08/04/23 0719 MR#: [id number] Acct: [id number] Name: TODD DELONG MONI Rep #:[id number] : 1950 72 From: Rafa Lofton DO PCP: Dr. Gerardo García MD Status:ADM I N Location: [place] [address] Reason for Visit Reason for Visit: Diagnoses [...] 08/04/23 04:09 08/04/23 04:09 08/04/23 04:09 08/04/23 04:08/04/23 04:10 Oxygen Delivery Method [...] 73.5 H, Lymph % (Auto) 17.9 L, Baylor % (Auto) 7.7, Eos % (Auto) 0.0, [...] % (Auto) 64.3, Lymph % (Auto) 26.0, Baylor % (Auto) 8.1, Eos % (Auto) 0.6, [...] her pyelonephritis. Charges/Coding Visit Charges Inpatient E&M: 55214 Subs Hosp L2 08/04/23 1241 <Electronically signed by Rafa Lofton DO> Cosigner Signature (if applicable): CC: ~ Signed [facility] Work Phone: 1(427) 625-308909-16-2023 Consult note Author Joshua Strickland [facility] August 04, 2023 9:19am Note Date/Time August 04, 2023 9:20am [facility] Medical Records Department [address] [place] [address] Consultation 08/04/23916 MR#: [id number] Acct: [id number] Name: TODD DELONG MONI Rep #:[id number] : 1950 72 From: Joshua Strickland MD PCP: Dr. Gerardo García MD Status:ADM I N Location: [place] [address] Consult Date of Consult: 08/04/23 Reason for [...] Echeverria MD; Dr. Gerardo García MD~ Signed [facility] Work Phone: 1(337) 353-296609-15-2023 Consult note Author Joshua Strickland [facility] August 03, 2023 5:05pm Note Date/Time August 03, 2023 5:05pm [facility] Medical Records Department [address] [place] [address] Consultation - Urology 08/03/23 1703 MR#: [id number] Acct: [id number] Name: TODD DELONG Rep #:[id number] : 1950 72 From: Joshua Strickland MD PCP: Dr. Gerardo García MD Status:ADM I N Location: [place] [address] Assessment & Plan Assessment/Plan (1) Complicated urinary [...] made her come to the hospital. [facility] Medical History Acute diarrhea LULY (acute [...] Severe Shortness Verified 06/08/23 09:50 of breath Hutshyk-WUX-YhL Reductase Allergy Anaphylaxis Verified 06/08/23 09:50 Inhibitor [...] activity do you participate in: walking saurabh/protestant: Non-Pentecostal/Independent seatbelt use: always do you feel safe [...] 73.5 H, Lymph % (Auto) 17.9 L, Baylor % (Auto) 7.7, Eos % (Auto) 0.0, [...] Echeverria MD; Dr. Gerardo García MD~ Signed [facility] Work Phone: [phone]) 667-696609-15-2023 Progress note Author Rafa Lofton [facility] August 03, 2023 12:30pm Note Date/Time August 03, 2023 7:32am [facility] Medical Records Department [address] [place] [address] Progress Note - Hospitalist 08/03/23 0721 MR#: [id number] Acct: [id number] Name: TODD DELONG MONI Rep #:[id number] : 1950 72 From: aRfa Lofton DO PCP: Dr. Gerardo García MD Status:ADM I N Location: [place] [address] Reason for Visit Reason for Visit: Diagnoses [...] (Auto) 74.9 H, Lymph % (Auto) 16.0 L,Baylor % (Auto) 7.9, Eos % (Auto) 0.1, [...] Clarity Cloudy, Urine pH 6.0, Ur Specific [place] 1.010, Urine Protein 100 H, Urine Glucose [...] SQ heparin Charges/Coding Visit Charges Inpatient E&M: 99179 Subs Hosp L2 08/03/23 1230 <Electronically signed by Rafa Lofton DO> Cosigner Signature (if applicable): CC: ~ Signed [facility] Work Phone: [phone]) 815-135009-14-2023 Consult note Author Holly Echeverria [facility] August 02, 2023 7:40pm Note Date/Time August 02, 2023 4:36pm [facility] Medical Records Department [address] [place] [address] Pharmacokinetic/Renal -Consult 08/02/23 1636 MR#: [id number] Acct: [id number] Name: TODD DELONG Rep #:[id number] : 1950 72 From: Andrei Coyne PCP: Dr. Gerardo García MD Status:ADM I N Y Location: [place] [address] Consult Antibiotic Management Pharmacy has been consulted [...] Date Holly Echeverria MD CC: ~ Signed [facility] Work Phone: 1(806) 252-776409-14-2023 Progress note Author Holly Echeverria [facility] August 02, 2023 6:47pm Note Date/Time August 02, 2023 6:47pm [facility] Medical Records Department [address] [place] [address] Progress Note - Hospitalist 08/02/23 1846 MR#: [id number] Acct: [id number] Name: TODD DELONG Rep #:[id number] : 1950 72 From: Holly Echeverria MD PCP: Dr. Gerardo García MD Status:ADM I N Location: [place] [address] Hospitalist Note Reviewed patient's CT scan and discussed with her urologist Dr. Strickland, will continue current management and place consult for patient to be seen tomorrow. 08/02/231846 <Electronically signed by Holly Echeverria MD> Cosigner Signature (if applicable): CC: ~ Signed [facility] Work Phone: 1(218) 402-443509-14-2023 History and physical note Author [facility] August 02, 2023 4:18pm Note Date/Time August 02, 2023 4:02pm [facility] Medical Records Department [address] [place] [address] H&P Exam - Hospitalist 08/02/23 1549 MR#: [id number] Acct: [id number] Name: TODD DELONG Rep #:[id number] : 1950 72 From: Holly Echeverria MD PCP: Dr. Gerardo García MD Status:ADM I N Location: [place] [address] HPI - General General Date of Admission: 08/02/23 Date of Service: 08/02/23 Chief Complaint: Generalized weakness HPI Narrative TODD DELONG, is a 72 F with history of cervical cancer, CKD, bilateral hydronephrosis with chronic ureteral stents, hypertension, GERD who presented [facility] 08/02/2023 with worsening generalized malaise and somenausea [...] other specific complaints at this time. [facility] Medical History (Updated 08/02/23 @ 16:17 [...] Severe Shortness Verified 06/08/23 09:50 of breath Nmtheme-VFK-HjG Reductase Allergy Anaphylaxis Verified 06/08/23 09:50 Inhibitor [...] activity do you participate in: walking saurabh/protestant: Non-Pentecostal/Independent seatbelt use: always do you feel safe [...] (Auto) 74.9 H, Lymph % (Auto) 16.0 L,Baylor % (Auto) 7.9, Eos % (Auto) 0.1, [...] Clarity Cloudy, Urine pH 6.0, Ur Specific [place] 1.010, Urine Protein 100 H, Urine Glucose [...] documentation, 76minutes Charges/Coding Visit Charges Inpatient E&M: 67855 Init Hosp L3 08/02/23 1618 <Electronically signed by Holly Echeverria MD> Cosigner Signature (if applicable): CC: Dr. Holly Echeverria MD; Dr. Gerardo García MD~ Signed [facility] Work Phone: 1([phone]) 663-730009-14-2023 Discharge summary Author Brian Mckee [facility] August 02, 2023 3:01pm Note Date/Time August 02, 2023 12:17pm [facility] Medical Records Department [address] [place] [address] Emergency Department Summary 08/02/23 MR#: [id number] Acct: [id number] Name: TODD DELONG Rep #:[id number] : 1950 72 From: Brian Avalos PCP: [...] Severe Shortness Verified 06/08/23 09:50 of breath Rccwqqq-SAI-HjD Reductase Allergy Anaphylaxis Verified 06/08/23 09:50 Inhibitor [...] activity do you participate in: walking saurabh/protestant: Non-Pentecostal/Independent seatbelt use: always do you feel safe [...] on CKD 6. UTI Dispo: admit to [facility] Lab Data Attestation: I reviewed the patient's lab results. Labs: Laboratory Results - last 24 hr 08/02/23 13:05 WBC 19.6 H RBC 4.45 Hgb 14.0 Hct 43.5 MCV 97.8 MCH 31.5 MCHC 32.2 RDW Std Deviation 51.8 H RDW Coeff of Dewey 14.3 Plt Count 294 MPV 10.6 Immature Gran % (Auto) 0.700 Neut % (Auto) 74.9 H Lymph % (Auto) 16.0 L Baylor % (Auto) 7.9 Eos % (Auto) 0.1 [...] your Primary Care Provider. Call [facility] ([phone]) or report to the closest Emergency Room. Call 911 if necessary. 08/02/23 1501 <Electronically signed by Brian Mckee DO> Cosigner Signature (if applicable): CC: Dr. Gerardo García MD ~ Signed [facility] Work Phone: [phone]) [phone] Chief complaint+Reason for visit Narrative * Chief [...] (severe) Chronic renal failure, stage 4 (severe) [facility] Work Phone: [phone]) 448-232705-01-2020 Evaluation note* Diagnosis Onset Date Resolution Status Chronic renal failure, stage 4 (severe) chronic Status post placement of implantable loop recorder March chronic Near syncope resolved Chronic renal failure, stage 4 (severe) chronic Chronic renal failure, stage 4 (severe) chronic Chronic renal failure, stage 4 (severe) chronic Chronic renal failure, stage 4 (severe) chronic Chronic renal failure, stage 4 (severe) chronic [facility] Work Phone: 1(971) 633-727910-12-2015 History of Past illness Narrative* Problem Noted Date Diagnosed Date Resolved Date Pseudophakia, left eye 08/30/201509/27 Lens replaced by other means 08/12/2015 09/27/2015 documented as of this encounter (statuses as of 10/23/2023) [facility]10-12-2015 History of Past illness Narrative* Problem Noted Date Diagnosed Date Resolved Date Pseudophakia, left eye 08/30/201509/27 Lens replaced by other means 08/12/2015 09/27/2015 documented as of this encounter (statuses as of 12/21/2023) [facility]2015 History of Past illness Narrative* Problem Noted Date Diagnosed Date Resolved Date Pseudophakia, left eye 08/30/201509/27 Lens replaced by other means 08/12/2015 09/27/2015 documented as of this encounter (statuses as of 12/21/2023) [address] History of Past illness Narrative* Problem Noted Date Diagnosed Date Resolved Date Pseudophakia, left eye 08/30/201509/27 Lens replaced by other means 08/12/2015 09/27/2015 documented as of this encounter (statuses as of 12/24/2023) [address] History of Past illness Narrative* Problem Noted Date Diagnosed Date Resolved Date Pseudophakia, left eye 08/30/201509/27 Lens replaced by other means 08/12/2015 09/27/2015 documented as of this encounter (statuses as of 12/25/2023) [address]12-2015 History of Past illness Narrative* Problem Noted Date Diagnosed Date Resolved Date Pseudophakia, left eye 08/30/201509/27 Lens replaced by other means 08/12/2015 09/27/2015 documented as of this encounter (statuses as of 12/25/2023) [address] History of Past illness Narrative* Problem Noted Date Diagnosed Date Resolved Date Pseudophakia, left eye 08/30/201509/27 Lens replaced by other means 08/12/2015 09/27/2015 documented as of this encounter (statuses as of 12/28/2023) [address]-2015 History of Past illness Narrative* Problem Noted Date Diagnosed Date Resolved Date Pseudophakia, left eye 08/30/201509/27 Lens replaced by other means 08/12/2015 09/27/2015 documented as of this encounter (statuses as of 01/02/2024) [address]-2015 History of Past illness Narrative* Problem Noted Date Diagnosed Date Resolved Date Pseudophakia, left eye 08/30/201509/27 Lens replaced by other means 08/12/2015 09/27/2015 documented as of this encounter (statuses as of 01/03/2024) [address]-2015 History of Past illness Narrative* Problem Noted Date Diagnosed Date Resolved Date Pseudophakia, left eye 08/30/201509/27 Lens replaced by other means 08/12/2015 09/27/2015 documented as of this encounter (statuses as of 01/10/2024) [facility]10-12[facility]2015 History of Past illness Narrative* Problem Noted Date Diagnosed Date Resolved Date Pseudophakia, left eye 08/30/201509/27 Lens replaced by other means 08/12/2015 09/27/2015 documented as of this encounter (statuses as of 02/09/2024) [facility]2015 History of Past illness Narrative* Problem Noted Date Diagnosed Date Resolved Date Pseudophakia, left eye 08/30/201509/27 Lens replaced by other means 08/12/2015 09/27/2015 documented as of this encounter (statuses as of 02/11/2024) [facility]2015 History of Past illness Narrative* Problem Noted Date Diagnosed Date Resolved Date Pseudophakia, left eye 08/30/201509/27 Lens replaced by other means 08/12/2015 09/27/2015 documented as of this encounter (statuses as of 02/19/2024) [facility]2015 History of Past illness Narrative* Problem Noted Date Diagnosed Date Resolved Date Pseudophakia, left eye 08/30/201509/27 Lens replaced by other means 08/12/2015 09/27/2015 documented as of this encounter (statuses as of 03/04/2024) [facility] Diagnosis Onset Date Resolution Status Chronic renal failure, stage 4 (severe) chronic Chronic renal failure, stage 4 (severe) chronic Chronic renal failure, stage 4 (severe) chronic Chronic renal failure, stage 4 (severe) chronic Chronic renal failure, stage 4 (severe) chronic [facility] Work Phone: Evaluation note* Diagnosis Onset Date Resolution Status Chronic renal failure, stage 4 (severe) chronic Chronic renal failure, stage 4 (severe) chronic Chronic renal failure, stage 4 (severe) chronic [facility] Work Phone: Evaluation note* Diagnosis Onset Date Resolution Status Chronic renal failure, stage 4 (severe) chronic Abscess of right thigh acute Lymphocytosis [facility] Work Phone: Evaluation note* Diagnosis Onset Date Resolution Status Chronic renal failure, stage 4 (severe) chronic Abscess of right thigh acute Lymphocytosis chronic Acute UTI acute Sepsis acute Tachycardia acute Chronic renal insufficiency [facility] Work Phone: Evaluation note* Diagnosis Onset Date Resolution Status Lymphocytosis chronic Acute UTI acute Sepsis acute Chronic renal insufficiency resolved Tachycardia resolved Chronic renal failure, stage 4 (severe) [facility] Work Phone: Evaluation note* Diagnosis Onset Date Resolution Status Acute UTI acute Sepsis acute Chronic renal insufficiency resolved Tachycardia resolved Chronic renal failure, stage 4 (severe) [facility] Work Phone: Evaluation note* Diagnosis Onset Date Resolution Status Chronic renal failure, stage 4 (severe) [facility] Work Phone: Evaluation note* Diagnosis Onset Date Resolution Status Chronic renal failure, stage 4 (severe) chronic Abscess of left knee acute Chronic renal failure, stage 4 (severe) [facility] Work Phone: Evaluation note* Diagnosis Onset Date Resolution Status Abscess of left knee acute Chronic renal failure, stage 4 (severe) [facility] Work Phone: Evaluation note* Diagnosis Onset Date Resolution Status Chronic renal failure, stage 4 (severe) chronic Abscess of forearm acute [facility] Work Phone: Evaluation note* Diagnosis Onset Date Resolution Status Abscess of forearm acute [facility] Work Phone: Evaluation note* Diagnosis Onset Date Resolution Status Abscess of forearm acute [place] (acute kidney injury) [place] Complicated urinary tract infection acute Hydronephrosis acute Acute kidney injury superimposed on CKD chronic Essential hypertension [facility] Work Phone: Evaluation note* Diagnosis Onset Date Resolution Status Complicated urinary tract infection acute Hydronephrosis acute Acute kidney injury superimposed on CKD chronic Essential hypertension [facility] Work Phone: Evaluation note* Diagnosis Onset Date Resolution Status Complicated urinary tract infection acute Hydronephrosis acute Acute kidney injury superimposed on CKD chronic Essential hypertension [facility] Acute dehydration acute Diarrhea acute Leukocytosis acute Pyuria acute Acute kidney injury superimp osed on chronic kidney disease [facility] Work Phone: Evaluation note* Diagnosis Onset Date Resolution Status Complicated urinary tract infection acute Hydronephrosis acute Acute kidney injury superimposed on CKD chronic Essential hypertension chron ic Acute dehydration acute Acute UTI acute Complicated urinary tract infection acute Diarrhea acute Leukocytosis acute Pyuria acute Acute kidney injury superimp osed on chronic kidney disease chronic [facility] Work Phone: Evaluation note* Diagnosis Onset Date Resolution Status Hydronephrosis acute Acute kidney injury superimposed on CKD chronic Essential hypertension chron ic Complicated urinary tract infection resolved Acute dehydration resolved Acute kidney injury superimp osed on chronic kidney disease resolved Acute UTI resolved Complicated urinary tract infection resolved Diarrhea resolved Leukocytosis resolved Pyuria resolved [facility] Work Phone: Evaluation note* Diagnosis Onset [...] Leukocytosis acute Sepsis acute Chronic kidney disease chron [facility] Work Phone: Evaluation note* Diagnosis LULY (acute kidney injury) (HCC)- Primary Acute kidney failure, unspecified Bilateral hydronephrosis Hydronephrosis Recurrent UTI Urinary tract infection, site not specified Hydronephrosis, unspecified hydronephrosis type [facility] Diagnosis Onset Date Resolution Status Acute UTI resolved [facility] Work Phone: Evaluation note* Diagnosis Bilateral hydronephrosis- Primary Hydronephrosis [facility] Diagnosis Onset Date Resolution Status Acute UTI resolved Bilateral hydronephrosis acu te Complicated urinary tract infection acute Leukocytosis acute Sinus tachycardia acute Chronic renal failure, stage 4 (severe) chronic Essential hypertension chron ic Hyperlipidemia [facility] Work Phone: Evaluation note* Diagnosis Onset Date Resolution Status Acute UTI resolved Bilateral hydronephrosis acu te Complicated urinary tract infection acute Hypokalemia acute Leukocytosis acute Pyelonephritis of right kidney acute Sinus tachycardia acute UTI (urinary tract infection) acute Chronic renal failure, stage 4 (severe) chronic Essential hypertension chron ic Hyperlipidemia [facility] Work Phone: Evaluation note* Diagnosis Bilateral hydronephrosis- Primary Hydronephrosis LULY (acute kidney injury) (HCC) Acute kidney failure, unspecified Hydronephrosis, unspecified hydronephrosis type documented in this encounter [facility] note* Diagnosis Hydronephrosis of left kidney- Primary Hydronephrosis Hydronephrosis, unspecified hydronephrosis type Hydronephrosis, unspecified hydronephrosis type documented in this encounter [facility] note* Diagnosis Onset Date Resolution Status Complicated urinary tract infection acute UTI (urinary tract infection) acute Hypokalemia resolved Leukocytosis resolved Sinus tachycardia resolved Chronic kidney disease, stage IV (severe) [facility] Work Phone: Evaluation note* Diagnosis Other hydronephrosis- Primary Hydronephrosis, unspecified hydronephrosis type documented in this encounter [facility] note* Diagnosis Bilateral hydronephrosis- Primary Hydronephrosis LULY (acute kidney injury) (HCC) Acute kidney failure, unspecified Recurrent UTI Urinary tract infection, site not specified Hydronephrosis, unspecified hydronephrosis type documented in this encounter [facility] note* Diagnosis Hydronephrosis with ureteral stricture, not elsewhere classified- Primary Other hydronephrosis documented in this encounter [facility] note* Diagnosis Other hydronephrosis- Primary Other hydronephrosis documented in this encounter [facility] note* Diagnosis Hydronephrosis of left kidney- Primary Hydronephrosis Pyelonephritis Pyelonephritis, unspecified Hydronephrosis with ureteral stricture, 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) Urinary complications Pyelonephritis Pyelonephritis, unspecified Nephrostomy tube displaced (HCC) Urinary complications Hydronephrosis, unspecified hydronephrosis type [N13.30]- Primary Hydronephrosis, unspecified hydronephrosis type documented in this encounter [facility] note* Diagnosis Hydronephrosis of left kidney- Primary Hydronephrosis Pyelonephritis Pyelonephritis, unspecified Hydronephrosis with ureteral stricture, 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) Urinary complications Pyelonephritis Pyelonephritis, unspecified Nephrostomy tube displaced (HCC) Urinary complications Sepsis secondary to UTI (HCC) (HCC)- Primary Urinary tract infection, site not specified Hydronephrosis, unspecified hydronephrosis type documented in this encounter [facility] note* Diagnosis Hydronephrosis of left kidney- Primary Hydronephrosis Pyelonephritis Pyelonephritis, unspecified Hydronephrosis with ureteral stricture, 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) Urinary complications Pyelonephritis Pyelonephritis, unspecified Nephrostomy tube displaced (HCC) Urinary complications Sepsis secondary to UTI (HCC) (HCC)- Primary Urinary tract infection, site not specified Hydronephrosis, unspecified hydronephrosis type documented in this encounter [facility] note* Diagnosis Hydronephrosis of left kidney- Primary Hydronephrosis Pyelonephritis Pyelonephritis, unspecified Hydronephrosis with ureteral stricture, 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) Urinary complications Pyelonephritis Pyelonephritis, unspecified Nephrostomy tube displaced (HCC) Urinary complications Nephrostomy tube bleed (HCC)- Primary Urinary complications Hydronephrosis, unspecified hydronephrosis type documented in this encounter [facility] note* Diagnosis Hydronephrosis of left kidney- Primary Hydronephrosis Pyelonephritis Pyelonephritis, unspecified Hydronephrosis with ureteral stricture, 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) Urinary complications Pyelonephritis Pyelonephritis, unspecified Nephrostomy tube displaced (HCC) Urinary complications Nephrostomy tube bleed (HCC) Urinary complications Hydronephrosis, unspecified hydronephrosis type documented in this encounter [facility] noteNo assessment information availableWOhioHealth [facility] Work Phone: Evaluation note* Diagnosis Hydronephrosis of left kidney- Primary Hydronephrosis Pyelonephritis Pyelonephritis, unspecified Hydronephrosis with ureteral stricture, not elsewhere classified Nephrostomy tube displaced Urinary complications Pyelonephritis Pyelonephritis, unspecified Nephrostomy tube displaced Urinary complications Hydronephrosis, unspecified hydronephrosis type- Primary Hydronephrosis, unspecified hydronephrosis type Hydronephrosis, unspecified hydronephrosis type documented in this encounter [facility] Discharge instructions Additional Instructions [facility] Plan of care note* Visit Details Visit Type -SN ROUTINE Discipline -Mcc Problems Problem Description Start Date Status Goals [...] ordered by Physician. documented in this encounter [facility]'s home Plan of care note* Visit Details Visit Type -SN ROUTINE Discipline -Mcc Problems Problem Description Start Date Status Goals [...] ordered by Physician. documented in this encounter [facility]'s home Plan of care note* Visit Details Visit Type -SN ROUTINE Discipline -Mcc Problems Problem Description Start Date Status Goals [...] ordered by Physician. [facility] Visit Details Visit Type -SN AGENCY DC W V ISIT Discipline -Mcc Problems Problem Description Start Date Status Goals [...] Physician. documented in this encounter [facility] for referral (narrative)No reason for referral information availableWOhioHealth [facility] Hospital Work [facility] N[facility]* Injectable (Routine) - Authorized Specialty Diagnoses / Procedures Referred By Contmarisol t Referred To Contact [facility] Diagnoses Unspecified hydronephrosis PICC Care Procedures INJECTION, LIDOCAINE HYDROCHLORIDE INJECTION [place] [id number] [facility] [place] [address] Infusion Center [address] [place] [address] [place] [address] Phone: tel: fax: Referral ID Status Reason Start Date Expiration Date V isits Requested Visits Authorized [id number] Authorized 01/23/2025 11/18/2025 99 99 [facility] for visit Narrative* Diagnostic Procedure Only (Routine) - Closed Specialty Diagnoses / Procedures Referred By Contac t Referred To Contact XR IMAGING Diagnoses Nephrostomy tube bleed (HCC) Procedures XR ABDOMEN 1V SUPINE RADIOLOGIC EXAM ABDOMEN 1 VIEW Obi Ruffin, KRYSTAL.TRANSITIONS RN CARE COORDINATOR [address] [place] [address] Phone: tel: fax: [place] [address] Referral ID Status Reason Start Date Expiration Date V isits Requested Visits Authorized [id number] Closed Auto-Generate d Referral 01/27/2025 02/26/2026 1 1 [facility] Summary Purpose Family History No [...] Will No December 05 4:45pm Power of Public Works Manager No December 05, 2021 4:45pm Advance Directive Response Recorded Date/ Time Advance Directives No March 29 0 12:24pm Living Will No July 19 2 10:13am Power of Public Works Manager No July 19 022 10:13am Advance Directive Response Recorded Date/ Time Advance Directives No March 29 0 12:24pm Living Will No July 29, 2022 4:47pm Power of Public Works Manager No July 4:47pm Advance Directive Response Recorded Date/ Time Advance Directives No March 29 0 11:24am Living Will No July 29, 2022 3:47pm Power of Public Works Manager No July 3:47pm Advance Directive Response Recorded Date/ Time Advance Directives No March 29 0 11:24am Living Will No January 17, 2023 10:13am Power of Public Works Manager No January 17 3 10:13am Advance Directive Response Recorded Date/ Time Advance Directives No March 29 0 12:24pm Living Will No January 17, 2023 11:13am Power of Public Works Manager No January 17 3 11:13am Advance Directive Response Recorded Date/ Time Advance Directives No March 29 0 12:24pm Living Will No June 01, 2023 9:26am Power of Public Works Manager No June 01 3 9:26am Advance Directive Response Recorded Date/ Time Advance Directives No March 29 0 12:24pm Living Will No August 02, 2023 4:23pm Power of Public Works Manager No July 4:23pm Advance Directive Response Recorded Date/ Time Advance Directives No March 29 0 12:24pm Living Will No September 19 9:35am Power of Public Works Manager No September 19, 2023 9:35am Advance Directive Response Recorded Date/ Time Advance Directives No March 29 0 12:24pm Living Will No September 19 2:40pm Power of Public Works Manager No September 19, 2023 2:40pm Advance Directive Response Recorded Date/ Time Advance Directives No March 29 0 11:24am Living Will No September 19 1:40pm Power of Public Works Manager No September 19, 2023 1:40pm Advance Directive Response Recorded Date/ Time Advance Directives No March 29 0 11:24am Living Will No October 09 023 2:28pm Power of Public Works Manager No October 09, 2023 2:28pm Latest Code Status on File Code Status Date Activated Date Inactivated Comments Full Code 10/10/2023 12:13 AM 10/12/2023 4:32 PM Question Answer Comments Full Code Order Discussed With: Patient Advance Directive Response Recorded Date/ Time Advance Directives No March 29 0 11:24am Living Will No November 06, 2 023 11:46am Power of Public Works Manager No November 06, 2023 11:46am Advance Directive Response Recorded Date/ Time Advance Directives No March 29 0 11:24am Living Will No November 10, 2 023 8:11pm Power of Public Works Manager No November 10, 2023 8:11pm Advance Directive Response Recorded Date/ Time Advance Directives No March 29 0 11:24am Living Will No November 10, 2 023 11:26pm Power of Public Works Manager No November 10, 2023 11:26pm Latest [...] November 16, 2 023 5:27pm Power of Public Works Manager No November 16, 2023 5:27pm Date Activated Date Inactivated Comments 11/26/2023 11:57 AM 01/01/2024 10:58 AM Date Activated Date Inactivated Comments 11/17/2023 2:20 PM 11/24/2023 10:12 PM Date Activated Date Inactivated Comments 10/10/2023 12:13 AM 10/12/2023 4:32 PM Advance Directive Response Recorded Date/ Time Advance Directives No March 29 12:24pm Living Will No February 14, 2024 5:44pm Power of Public Works Manager No February 13 5:44pm Advance Directive Response Recorded Date/ Time Advance Directives No March 29 12:24pm Living Will No February 14, 2024 8:45pm Power of Public Works Manager No February 13 8:45pm Date Activated [...] section and content) DATE CREATED AUTHOR 11/10/2018 [facility] DATE CREATED AUTHOR AUTHOR'S ORGANIZ ATION 12/22/2023 [facility] DATE CREATED AUTHOR AUTHOR'S ORGANIZ ATION 01/02/2024 [facility] DATE CREATED AUTHOR AUTHOR'S ORGANIZ ATION 09/30/2025 [facility] DATE CREATED AUTHOR AUTHOR'S ORGANIZ ATION 10/01/2025 [facility] Goals (unrecognized section and content) Goals [...] MD Primary Care Provider, Referring Provider Active Radha DEY PA-C Attending Provider Active Team Status: [...] Other Provider Active Dr. John Light , Attending Provider Active Dr. Rafa Lofton DO [...] Dr. Carlene Bower MD Emergency Provider Active Sexer Relationship Specialty Start Date End Date Gerardo García Chi [address] [place] [id number] PCP - General Gerontology 10/22/14 Luz Maria Matthews MD [address] [place] [address] Referring Gastroenterology 07/25/19 Team Status: Inactive Member [...] Dr. Rafa Lofton DO Attending Provider Active Sexer Relationship Specialty Start Date End Date Gerardo García Chi [address] [facility] [address] [place], [place] [id number] PCP - General Gerontology 10/22/14 José Manuel Murrell MD [address] [place] [address] Referring 11/23/23 José Manuel Murrell MD [address] [place] [address] Home Care Provider 11/23/23 Jin Antonio MD [address] [place] [id number] Consulting Urology 12/04/23 Sexer Relationship Specialty Start Date End Date Gerardo García Chi [address] [facility] [address] [place], [place] [address] PCP - General Gerontology 10/22/14 José Manuel Murrell MD [address] [place] [address] Referring 11/23/23 José Manuel Murrell MD [address] [place] [address] Home Care Provider 11/23/23 Jin Antonio MD [address] [place] [id number] Consulting Urology 12/04/23 Sexer Relationship Specialty Start Date End Date Gerardo García Chi [address] [place] [address] PCP - General Gerontology 10/22/14 José Manuel Murrell MD [address] [place] [address] Referring 11/23/23 José Manuel Murrell MD [address] [place] [address] Home Care Provider 11/23/23 Jin Antonio MD [address] [address] Consulting Urology 12/21/23 Sexer Relationship Specialty Start Date End Date Gerardo García Caio [address] [place] [address] PCP - General Gerontology 10/22/14 José Manuel Murrell MD [address] [place] [address] Referring 11/23/23 José Manuel Murrell MD [address] [place] [address] Home Care Provider 11/23/23 Jin Antonio MD [address] [place] [address] Consulting Urology 12/21/23 Sexer Relationship Specialty Start Date End Date Gerardo García Chi [address] [place], [place] [address] PCP - General Gerontology 10/22/14 José Manuel Murrell MD [address] [place] [address] Referring 11/23/23 José Manuel Murrell MD [address] [place] [address] Home Care Provider 11/23/23 Jin Antonio MD [address] [facility] [address] [place] [address] Consulting Urology 12/21/23 Sexer Relationship Specialty Start Date End Date Gerardo García Chi [address] [place] [address] PCP - General Gerontology 10/22/14 José Manuel Murrell MD [address] [place] [address] Referring 11/23/23 José Manuel Murrell MD [address] [place] [address] Home Care Provider 11/23/23 Jin Antonio MD [address] [place] [address] Consulting Urology 12/21/23 Sexer Relationship Specialty Start Date End Date Gerardo García Chi [address] [facility] [address] [place] [address] PCP - General Gerontology 10/22/14 José Manuel Murrell MD [address] [place] [address] Referring 11/23/23 José Manuel Murrell MD [address] [place] [address] Home Care Provider 11/23/23 Jin Antonio MD [address] [place] [address] Consulting Urology 12/21/23 Sexer Relationship Specialty Start Date End Date Gerardo García Chi [address] [address] PCP - General Gerontology 10/22/14 José Manuel Murrell MD [address] [place] [address] Referring 11/23/23 José Manuel Murrell MD [address] [place] [address] Home Care Provider 11/23/23 Jin Antonio MD [address] [place] [address] Consulting Urology 12/21/23 Sexer Relationship Specialty Start Date End Date Gerardo García Chi [address] [place], [place] [address] PCP - General Gerontology 10/22/14 José Manuel Murrell MD [address] [place] [address] Referring 11/23/23 José Manuel Murrell MD [address] [place] [address] Home Care Provider 11/23/23 Jin Antonio MD [address] [facility] [address] [place] [address] Consulting Urology 12/21/23 Sexer Relationship Specialty Start Date End Date Gerardo García Chi [address] [place] [address] PCP - General Gerontology 10/22/14 José Manuel Murrell MD [address] [place] [address] Referring 11/23/23 José Manuel Murrell MD [address] [place] [address] Home Care Provider 11/23/23 Jin Antonio MD [address] [place] [address] Consulting Urology 12/21/23 Team Status: Inactive Member Role Status Dates Dr. Gerardo García MD Primary Care Provider Active Dr. Brian Mckee DO Attending Provide r, Referring Provider, Emergency Provider Active Sexer Relationship Specialty Start Date End Date Gerardo García Chi [address] [place], [place] [id number] PCP - General Gerontology 10/22/14 José Manuel Murrell MD [address] [place] [address] Referring 11/23/23 José Manuel Murrell MD [address] [place] [address] Home Care Provider 11/23/23 Jin Antonio MD [address] [place] [address] Consulting Urology 12/21/23 Sexer Relationship Specialty Start Date End Date Gerardo García Chi [address] [place], [place] [address] PCP - General Gerontology 10/22/14 José Manuel Murrell MD [address] [place] [address] Referring 11/23/23 José Manuel Murrell MD [address] [place] [address] Home Care Provider 11/23/23 Jin Antonio MD [address] [address] Consulting Urology 12/21/23 Team Status: Active Member Role Status Dates Dr. Gerardo aGrcía MD Primary Care Provider Active Dr. Altaf Villa MD Emergency Provider Active Dr. Andres Maurer , Admit Provider , Attending Provider, Referring Provider [...] Dr. Julianna Matthews DO Attending Provider Active Sexer Relationship Specialty Start Date End Date Gerardo García Chi [address] [facility] [address] [place] [address] PCP - General Gerontology 10/22/14 José Manuel Murrell MD [address] [place] [address] Referring 11/23/23 José Manuel Murrell MD [address] [place] [address] Home Care Provider 11/23/23 Jin Antonio MD [address] [address] Consulting Urology 12/21/23 Sexer Relationship Specialty Start Date End Date Gerardo García Chi [address] [facility] [address] [place], [place] [address] PCP - General Gerontology 10/22/14 José Manuel Murrell MD [address] [place] [address] Referring 11/23/23 José Manuel Murrell MD [address] [place] [address] Home Care Provider 11/23/23 Jin Antonio MD [address] [facility] [address] [place] [address] Consulting Urology 12/21/23 Sexer Relationship Specialty Start Date End Date Gerardo García Chi [address] [place], [place] [address] PCP - General Gerontology 10/22/14 José Manuel Murrell MD [address] [place] [address] Referring 11/23/23 José Manuel Murrell MD [address] [place] [address] Home Care Provider 11/23/23 Jin Antonio MD [address] [place] [address] Consulting Urology 12/21/23 Sexer Relationship Specialty Start Date End Date Gerardo García Chi [address] [place] [address] PCP - General Gerontology 10/22/14 José Manuel Murrell MD [address] [place] [address] Referring 11/23/23 José Manuel Murrell MD [address] [place] [address] Home Care Provider 11/23/23 Jin Antonio MD [address] [facility] [place] [address] Consulting Urology 12/21/23 Team Status: Active Member Role Status Dates Dr. Gerardo García MD Primary Care Provider Active Dr. Altaf Villa MD Emergency Provider Active Dr. Andres Maurer DO Admit Provider, Other Provid er Active Dr. Julianna Matthews DO Attending Provider, Other Provide r Active Sexer Relationship Specialty Start Date End Date Gerardo García Chi [address] [place], [place] [address] PCP - General Gerontology 10/22/14 José Manuel Murrell MD [address] [place] [address] Referring 11/23/23 José Manuel Murrell MD [address] [place] [address] Home Care Provider 11/23/23 Jin Antonio MD [address] [place] [address] Consulting Urology 12/21/23 Sexer Relationship Specialty Start Date End Date Gerardo García Chi [address] [place], [place] [address] PCP - General Gerontology 10/22/14 José Manuel Murrell MD [address] [place] [address] Referring 11/23/23 José Manuel Murrell MD [address] [place] [address] Home Care Provider 11/23/23 Jin Antonio MD [address] [place] [address] Consulting Urology 12/21/23 Sexer Relationship Specialty Start Date End Date Gerardo García Chi [address] [place], [place] [address] PCP - General Gerontology 10/22/14 José Manuel Murrell MD [address] [place] [address] Referring 11/23/23 José Manuel Murrell MD [address] [place] [address] Home Care Provider 11/23/23 Jin Antonio MD [address] [facility] [place] [address] Consulting Urology 12/21/23 Sexer Relationship Specialty Start Date End Date Gerardo García Chi [address] [place] [address] PCP - General Gerontology 10/22/14 José Manuel Murrell MD [address] [place] [address] Referring 11/23/23 José Manuel Murrell MD [address] [place] [address] Home Care Provider 11/23/23 Jin Antonio MD [address] [place], [place] [address] [address] Consulting Urology 12/21/23 Sexer Relationship Specialty Start Date End Date Gerardo García Chi [address] [place] [address] PCP - General Gerontology 10/22/14 José Manuel Murrell MD [address] [place] [address] Referring 11/23/23 José Manuel Murrell MD [address] [place] [address] Home Care Provider 11/23/23 Jin Antonio MD [address] [place] [address] Consulting Urology 12/21/23 Sexer Relationship Specialty Start Date End Date Gerardo García Chi [address] [place] [address] PCP - General Gerontology 10/22/14 José Manuel Murrell MD [address] [place] [address] Referring 11/23/23 José Manuel Murrell MD [address] [place] [address] Home Care Provider 11/23/23 Jin Antonio MD [address] [facility] [address] [place] [address] Consulting Urology 12/21/23 Sexer Relationship Specialty Start Date End Date RickyGerardo [address] [place], [place] [address] PCP - General Gerontology 10/22/14 José Manuel Murrell MD [address] [place] [address] Referring 11/23/23 José Manuel Murrell MD [address] [place] [address] Home Care Provider 11/23/23 Jin Antonio MD [address] [facility] [address] [place] [address] Consulting Urology 12/21/23 Sexer Relationship Specialty Start Date End Date Gerardo García [address] [place] [address] PCP - General Gerontology 10/22/14 José Manuel Murrell MD [address] [place] [address] Referring 11/23/23 José Manuel Murrell MD [address] [place] [address] Home Care Provider 11/23/23 Jin Antonio MD [address] [place] [address] Consulting Urology 12/21/23 Sexer Relationship Specialty Start Date End Date Gerardo García Chi [address] [facility] [address] [place] [address] PCP - General Gerontology 10/22/14 José Manuel Murrell MD [address] [place] [address] Referring 11/23/23 José Manuel Murrell MD [address] [place] [address] Home Care Provider 11/23/23 Jin Antonio MD [address] [place] [address] Consulting Urology 12/21/23 Sexer Relationship Specialty Start Date End Date Gerardo García Chi [address] [facility] [address] [place] [address] PCP - General Gerontology 10/22/14 José Manuel Murrell MD [address] [place] [address] Referring 11/23/23 José Manuel Murrell MD [address] [place] [address] Home Care Provider 11/23/23 Jin Antonio MD [address] [place] [address] Consulting Urology 12/21/23 Sexer Relationship Specialty Start Date End Date Gerardo García Chi [address] [place], [place] [address] PCP - General Gerontology 10/22/14 José Manuel Murrell MD [address] [place] [address] Referring 11/23/23 José Manuel Murrell MD [address] [place] [address] Home Care Provider 11/23/23 Jin Antonio MD [address] [place] [address] Consulting Urology 12/21/23 Sexer Relationship Specialty Start Date End Date Gerardo García Chi [address] [place] [address] PCP - General Gerontology 10/22/14 José Manuel Murrell MD [address] [place] [address] Referring 11/23/23 José Manuel Murrell MD [address] [place] [address] Home Care Provider 11/23/23 Jin Antonio MD [address] [place] [address] Consulting Urology 12/21/23 Sexer Relationship Specialty Start Date End Date RickyGerardo Chi Darrian DIAZ [facility] [address] [place] [address] PCP - General Gerontology 10/22/14 José Manuel Murrell MD [address] [place] [address] Referring 11/23/23 José Manuel Murrell MD [address] [place] [address] Home Care Provider 11/23/23 Jin Antonio MD [address] [address] Consulting Urology 12/21/23 Team Status: Active Member [...] 07, 2025 End: January 07, 2025 Dr. Rajesh Olvera MD Attending Provider Active S tart: January 07, 2025 End: January 07, 2025 Dr. Rajesh Olvera MD Referring Provider Active S tart: January 07, 2025 End: January 07, 2025 Team Status: Inactive Member Role Status Dates Dr. Gerardo García MD Primary Care Provider Active Start: February 02, 2025 End: February 02, 2025 Dr. Gerardo García MD Attending Provider Active Start: February 02, 2025 End: February 02, 2025 Team Status: Inactive Member Role Status Dates Dr. Gearrdo García MD Primary Care Provider Active Start: [...] April 15, 2025 End: April 15, 2025 Sexer Relationship Specialty Start Date End Date Gerardo García Chi [address] [place] [address] [address] PCP - General Gerontology 10/22/14 José Manuel Murrell MD [address] [place] [address] Referring 11/23/23 José Manuel Murrell MD [address] [place] [address] Home Care Provider 11/23/23 Jin Antonio MD [address] [facility] [address] [place] [address] Consulting Urology 12/21/23 Sexer Relationship Specialty Start Date End Date Gerardo García Chi [address] [facility] [address] [place] [address] PCP - General Gerontology 10/22/14 José Manuel Murrell MD [address] [place] [address] Referring 11/23/23 José Manuel Murrell MD [address] [place] [address] Home Care Provider 11/23/23 Jin Antonio MD [address] [place] [address] Consulting Urology 12/21/23 Team Status: Active Member [...] or prosecute any alcohol or drug abuse patient.[facility] CenterIn the event this information is protected by the Federal Confidentiality of Alcohol and Drug Abuse Patient Records regulations: The Federal rules restrict any use of the information to criminally investigate or prosecute any alcohol or drug abuse patient.[facility] CenterIn the event this information is protected by the Federal Confidentiality of Alcohol and Drug Abuse Patient Records regulations: The Federal rules restrict any use of the information to criminally investigate or prosecute any alcohol or drug abuse patient.[facility] CenterIn the event this information is protected by the Federal Confidentiality of Alcohol and Drug Abuse Patient Records regulations: The Federal rules restrict any use of the information to criminally investigate or prosecute any alcohol or drug abuse patient.[facility] CenterIn the event this information is protected by the Federal Confidentiality of Alcohol and Drug Abuse Patient Records regulations: The Federal rules restrict any use of the information to criminally investigate or prosecute any alcohol or drug abuse patient.[facility] CenterIn the event this information is protected by the Federal Confidentiality of Alcohol and Drug Abuse Patient Records regulations: The Federal rules restrict any use of the information to criminally investigate or prosecute any alcohol or drug abuse patient.[facility] CenterIn the event this information is protected by the Federal Confidentiality of Alcohol and Drug Abuse Patient Records regulations: The Federal rules restrict any use of the information to criminally investigate or prosecute any alcohol or drug abuse patient.[facility] CenterIn the event this information is protected by the Federal Confidentiality of Alcohol and Drug Abuse Patient Records regulations: The Federal rules restrict any use of the information to criminally investigate or prosecute any alcohol or drug abuse patient.[facility] CenterIn the event this information is protected by the Federal Confidentiality of Alcohol and Drug Abuse Patient Records regulations: The Federal rules restrict any use of the information to criminally investigate or prosecute any alcohol or drug abuse patient.[facility] CenterIn the event this information is protected by the Federal Confidentiality of Alcohol and Drug Abuse Patient Records regulations: The Federal rules restrict any use of the information to criminally investigate or prosecute any alcohol or drug abuse patient.[facility] CenterIn the event this information is protected by the Federal Confidentiality of Alcohol and Drug Abuse Patient Records regulations: The Federal rules restrict any use of the information to criminally investigate or prosecute any alcohol or drug abuse patient.[facility] CenterIn the event this information is protected by the Federal Confidentiality of Alcohol and Drug Abuse Patient Records regulations: The Federal rules restrict any use of the information to criminally investigate or prosecute any alcohol or drug abuse patient.[facility] CenterIn the event this information is protected by the Federal Confidentiality of Alcohol and Drug Abuse Patient Records regulations: The Federal rules restrict any use of the information to criminally investigate or prosecute any alcohol or drug abuse patient.[facility] CenterIn the event this information is protected by the Federal Confidentiality of Alcohol and Drug Abuse Patient Records regulations: The Federal rules restrict any use of the information to criminally investigate or prosecute any alcohol or drug abuse patient.[facility] CenterIn the event this information is protected by the Federal Confidentiality of Alcohol and Drug Abuse Patient Records regulations: The Federal rules restrict any use of the information to criminally investigate or prosecute any alcohol or drug abuse patient.[facility] CenterIn the event this information is protected by the Federal Confidentiality of Alcohol and Drug Abuse Patient Records regulations: The Federal rules restrict any use of the information to criminally investigate or prosecute any alcohol or drug abuse patient.[facility] CenterIn the event this information is protected by the Federal Confidentiality of Alcohol and Drug Abuse Patient Records regulations: The Federal rules restrict any use of the information to criminally investigate or prosecute any alcohol or drug abuse patient.[facility] CenterIn the event this information is protected by the Federal Confidentiality of Alcohol and Drug Abuse Patient Records regulations: The Federal rules restrict any use of the information to criminally investigate or prosecute any alcohol or drug abuse patient.[facility] CenterIn the event this information is protected by the Federal Confidentiality of Alcohol and Drug Abuse Patient Records regulations: The Federal rules restrict any use of the information to criminally investigate or prosecute any alcohol or drug abuse patient.[facility] CenterIn the event this information is protected by the Federal Confidentiality of Alcohol and Drug Abuse Patient Records regulations: The Federal rules restrict any use of the information to criminally investigate or prosecute any alcohol or drug abuse patient.[facility] CenterIn the event this information is protected by the Federal Confidentiality of Alcohol and Drug Abuse Patient Records regulations: The Federal rules restrict any use of the information to criminally investigate or prosecute any alcohol or drug abuse patient.[facility] CenterIn the event this information is protected by the Federal Confidentiality of Alcohol and Drug Abuse Patient Records regulations: The Federal rules restrict any use of the information to criminally investigate or prosecute any alcohol or drug abuse patient.[facility] CenterIn the event this information is protected by the Federal Confidentiality of Alcohol and Drug Abuse Patient Records regulations: The Federal rules restrict any use of the information to criminally investigate or prosecute any alcohol or drug abuse patient.[facility] CenterIn the event this information is protected by the Federal Confidentiality of Alcohol and Drug Abuse Patient Records regulations: The Federal rules restrict any use of the information to criminally investigate or prosecute any alcohol or drug abuse patient.[facility] CenterIn the event this information is protected by the Federal Confidentiality of Alcohol and Drug Abuse Patient Records regulations: The Federal rules restrict any use of the information to criminally investigate or prosecute any alcohol or drug abuse patient.[facility] CenterIn the event this information is protected by the Federal Confidentiality of Alcohol and Drug Abuse Patient Records regulations: The Federal rules restrict any use of the information to criminally investigate or prosecute any alcohol or drug abuse patient.[facility] CenterIn the event this information is protected by the Federal Confidentiality of Alcohol and Drug Abuse Patient Records regulations: The Federal rules restrict any use of the information to criminally investigate or prosecute any alcohol or drug abuse patient.[facility] CenterIn the event this information is protected by the Federal Confidentiality of Alcohol and Drug Abuse Patient Records regulations: The Federal rules restrict any use of the information to criminally investigate or prosecute any alcohol or drug abuse patient.[facility] CenterIn the event this information is protected by the Federal Confidentiality of Alcohol and Drug Abuse Patient Records regulations: The Federal rules restrict any use of the information to criminally investigate or prosecute any alcohol or drug abuse patient.[facility] CenterIn the event this information is protected by the Federal Confidentiality of Alcohol and Drug Abuse Patient Records regulations: The Federal rules restrict any use of the information to criminally investigate or prosecute any alcohol or drug abuse patient.[facility] CenterIn the event this information is protected by the Federal Confidentiality of Alcohol and Drug Abuse Patient Records regulations: The Federal rules restrict any use of the information to criminally investigate or prosecute any alcohol or drug abuse patient.[facility] CenterIn the event this information is protected by the Federal Confidentiality of Alcohol and Drug Abuse Patient Records regulations: The Federal rules restrict any use of the information to criminally investigate or prosecute any alcohol or drug abuse patient.[facility] CenterIn the event this information is protected by the Federal Confidentiality of Alcohol and Drug Abuse Patient Records regulations: The Federal rules restrict any use of the information to criminally investigate or prosecute any alcohol or drug abuse patient.[facility] CenterIn the event this information is protected by the Federal Confidentiality of Alcohol and Drug Abuse Patient Records regulations: The Federal rules restrict any use of the information to criminally investigate or prosecute any alcohol or drug abuse patient.[facility] CenterIn the event this information is protected by the Federal Confidentiality of Alcohol and Drug Abuse Patient Records regulations: The Federal rules restrict any use of the information to criminally investigate or prosecute any alcohol or drug abuse patient.[facility] CenterIn the event this information is protected by the Federal Confidentiality of Alcohol and Drug Abuse Patient Records regulations: The Federal rules restrict any use of the information to criminally investigate or prosecute any alcohol or drug abuse patient.[facility] CenterIn the event this information is protected by the Federal Confidentiality of Alcohol and Drug Abuse Patient Records regulations: The Federal rules restrict any use of the information to criminally investigate or prosecute any alcohol or drug abuse patient.[facility] CenterIn the event this information is protected by the Federal Confidentiality of Alcohol and Drug Abuse Patient Records regulations: The Federal rules restrict any use of the information to criminally investigate or prosecute any alcohol or drug abuse patient.[facility] CenterIn the event this information is protected by the Federal Confidentiality of Alcohol and Drug Abuse Patient Records regulations: The Federal rules restrict any use of the information to criminally investigate or prosecute any alcohol or drug abuse patient.[facility] CenterIn the event this information is protected by the Federal Confidentiality of Alcohol and Drug Abuse Patient Records regulations: The Federal rules restrict any use of the information to criminally investigate or prosecute any alcohol or drug abuse patient.[facility] CenterIn the event this information is protected by the Federal Confidentiality of Alcohol and Drug Abuse Patient Records regulations: The Federal rules restrict any use of the information to criminally investigate or prosecute any alcohol or drug abuse patient.[facility] Reason for Visit (unrecogniz ed section and content) Reason Comments Stent Reason Comments Home Care Drainage from right nephrostomy tube site, HTN Specialty Diagnoses / Procedures Referred By Tessie raphael Referred To Contact [facility] Home Care [address] [place] [address] Referral ID Status Reason Start Date Expiration Date Visits Re quested Visits Authorized [id number] 1 1 Reason Comments Patient Question Reason [...] ALL ASSOCIATED RAD S&I Mr Interventional Radiology [address] [place], [place] [address] [place] [address] Referral ID Status Reason Start Date Expiration Date Visits Re quested Visits Authorized [id number] 1 1 Specialty Diagnoses / Procedures Referred By Tessie raphael Referred To Contact Diagnoses Hydronephrosis, unspecified hydronephrosis type Procedures EXCHANGE NEPHROSTOMY CATHETER PRQ W/IMG GID RS&I PERC EXCHANGE NEPHROSTOMY CATH, INCLUDING DIAGNOSTIC NEPHROSTOGRAM/URETEROGRAM WHEN PERFORMED,IMAGING GUIDANCE AND ALL ASSOCIATED RAD S&I Mr Interventional Radiology [facility] [place] [address] Referral ID Status Reason Start Date Expiration Date Visits Re quested Visits Authorized [id number] 1 1 Reason Onset Date Comments 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 06/15/2024 Set up for L NT reinsertion Referral ID Status Reason Start Date Expiration Date Visits Re quested Visits Authorized [id number] 1 1 Reason Comments Follow Up Hydronephrosis Reason Comments Hydronephrosis Post op stent remova l Reason Comments Medical Administrative Specialist - Other Nephrostomy tub e supplies Specialty Diagnoses / Procedures Referred By Contac t Referred To Contact Diagnoses Other hydronephrosis Other hydronephrosis [N13.39] Procedures EXCHANGE NEPHROSTOMY CATHETER PRQ W/IMG GID RS&I PERC EXCHANGE NEPHROSTOMY CATH, INCLUDING DIAGNOSTIC NEPHROSTOGRAM/URETEROGRAM WHEN PERFORMED,IMAGING GUIDANCE AND ALL ASSOCIATED RAD S&I Mr Interventional Radiology [address] [place] [address] Referral ID Status Reason Start Date Expiration Date Visits Re quested Visits Authorized [id number] 1 Reason Comments Hydronephrosis Left neph [...] 0303, Intraprocedure 1307 (Given - Provid er: Edwina Patel MD, - Comment: flank) PRN Medication Order 03/16/2024 03/17/2024 03/18/2024 lidocaine (PF) 10 mg/mL (1 %) injection (XYLOCAINE) (CANCELED) SUBCUTANEOUS, NEEDED, Starting on 03/18/24 at 1546, Until 03/18/24 at 1614, Intraprocedure 1546 (Given - Provid er: Rocío Hernández MD, )1557 (Given - Provider: Rocío Hernández MD, ) PRN Medication Order 05/11/2024 05/12/2024 [...] 1113, Intraprocedure 1043 (Given - Provid er: Magno Campbell MD, MD) PRN Medication Order 09/27/2024 [...] BE BASED ON THE PRIMARY CLINICAL RECORDS. [employer] [facility]. provides no warranty or guarantee of the accuracy or completeness of information in this document.
== END | disposition home or self-care (01) ==
LOC: POLAB3 15:10
PROVIDERS: PCP Family Medicine Geriatric Medicine; Visit Provider Family Medicine Geriatric Medicine
DX: R06.2 Wheezing (principal); J98.8 Other specified respiratory disorders
CPT/HCPCS: 87631